=== PATIENT | female | born 1995 | race Caucasian/White ===

== ENCOUNTER 2023-06-11 10:36 | Outpatient (OUT) | payer OTHER, SELFPAY ==
--- NOTE | 2023-06-11 10:37 | US_ITS ---
[place] [address] Patient Name: TARA FLOREZ MRN: [id number] date: 1995 Sex: F Assigned Patient Location: US Current Patient Location: US Accession/Order Number: [id number] Exam Date: 06/11/2023 10:42 Report Date: 06/11/2023 11:38 At the request of: BRUCE CARD Procedure: US OB transvaginal EXAMINATION: US OB transvaginal HISTORY: Missed menses COMPARISON: No relevant comparison available. FINDINGS: Conde intrauterine gestation Gestational sac: 4.4 cm, 9 weeks 6 days CRL: 3.3 cm, 10 weeks 1 day Yolk sac: 3.8 mm Heart rate: 170 minute Cervix: Closed, 5.6 cm Area of perigestational heterogeneous echogenicity measuring 2.6 x 0.7 x 1.5 cm The right ovary measures 4.2 x 3.0 x 2.4 cm. Cystic area likely corpus luteal cyst The left ovary is not visualized Gestational age: 9 weeks 2 days Gestational age: 801/12/2024 Ultrasound age: 10 weeks 1 day Ultrasound CARTER: 01/06/2024 US/US OB transvaginal IMPRESSION: Viable conde intrauterine gestation measuring 10 weeks 1 day 2.6 cm subchorionic hematoma Electronically authenticated by: KURT STONE Date: 06/11/2023 11:38
== END 2023-06-11 10:37 | disposition home or self-care (01) ==
LOC: US 10:37
PROVIDERS: Visit Provider Obstetrics & Gynecology
DX: N92.6 Irregular menstruation, unspecified (principal); Z34.91 Encounter for supervision of normal pregnancy, unspecified, first trimester; Z3A.10 10 weeks gestation of pregnancy
CPT/HCPCS: 76817

== ENCOUNTER 2023-06-17 13:14 | Outpatient (OUT) | payer OTHER, SELFPAY ==
--- OUTSIDE RECORDS SUMMARY | 2023-06-17 13:21 | XMS_ITS | CCD ---
Author Name Unknown Address [address] [place] [address] Organization [facility] Care Team Providers Care Back Hoe Machine Operator Name Role Phone NO FAMILY PHYSICIAN, 837 Unavailable Unavail able FELIX GALVAN Unavailable Unavailable Miguel Holley Primary Care Provider Jackson Haas Primary Care Provider [phone] Miguel Holley Primary Care Provider Leydi Miguel M Primary Care Provider Leydi IVORY Miguel Primary Care Provider [phone] Leydi 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, Miguel M Primary Care Provider LEYDI MIGUEL M Referring Unavailable LEYDI, MIGUEL M Primary Care Unavailable Leydi 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, Miguel M Primary Care Provider Leydi 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, Miguel M Primary Care Provider Shona Lucio Primary Care Physician Yeison Holley 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, Miguel M Primary Care Provider Leydi 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, Miguel M Primary Care Provider LEYDI, MIGUEL M Primary Care Unavailable VICKIE NICHOLS Admitting Unavailable VICKIE NICHOLS Attending Unavailable LEYDI, MIGUEL M Primary Care Unavailable BRUCE CARD Referring Unavailable LEYDI, MIGUEL M Primary Care Unavailable BRUCE CARD Referring Unavailable LEYDI, MIGUEL M Primary Care Unavailable BRUCE CARD Referring Unavailable LEYDI, MIGUEL M Primary Care Unavailable BRUCE CARD Referring Unavailable LEYDI, MIGUEL M Primary Care Unavailable VICKIE NICHOLS Referring Unavailable KYAW, BRUCE ANGELICA Referring Unavailable MIGUEL HOLLEY Primary Care Unavailable BRUCE CARD Attending Unavailable Allergies Allergy Classification Reported Allergen(s) Allergy Type Date of Onset Reaction(s) Facility Aminoketones (4 sources) buPROPion; Translations: [Wellbutrin SR 100 MG Oral Tablet Extended Release 12 Hour] Drug Allergy 03-05-20 20 Wellbutrin SR [facility] Work Phone: Corticosteroids (6 sources) Triamcinolone Drug Allergy 10-14-19 14 Other (See Comments) [facility] Lisdexamfetamine (1 source) Lisdexamfetamine Drug Allergy 10-04-19 21 Vyvanse [facility] Work Phone: Naltrexone (4 sources) Naltrexone; Translations: [Naltrexone HCl 50 MG Oral Tablet] Drug Allergy 03-05-20 20 Naltrexone HCl [facility] Work Phone: (1 source) Triamcinolone; Translations: [TRIAMCINOLONE ACETONIDE] Drug Allergy 10-12-19 15 [facility] Repository (16 sources) Triamcinolone; Translations: [Kenalog] Drug Allergy 07-06-19 20 [facility] Work Phone: (6 sources) Triamcinolone Drug Allergy 10-14-19 14 Other (See Comments) [facility]- [place], [place] (17 sources) Poison spencer Allergy to substance 07-20-19 [facility] Work Phone: (3 sources) buPROPion; Translations: [Wellbutrin SR 100 MG Oral Tablet Extended Release 12 Hour] Drug Allergy 03-05-20 20 Wellbutrin SR [facility] Work Phone: (3 sources) Naltrexone; Translations: [Naltrexone HCl 50 MG Oral Tablet] Drug Allergy 03-05-20 20 Naltrexone HCl [facility] Work Phone: Medications Current Medications Medication Drug Class(es) Dates Sig (Normalized) Sig (Original) acetaminophen 325 mg / HYDROcodone bitartrate 5 mg oral tablet (2 sources) Opioid Agonist Start: 10-15-2020 End: 10-18-2020 HYDROcodone-acetami nophen (NORCO) 5-325 MG per tablet Indications: Generalized abdominal pain Take 1 tablet by mouth every 6 hours as needed for Pain for up to 3 days. Intended supply: 3 days. Take lowest dose possible to manage pain 12 tablet 0 10/15/2020 10/18/2020 Active Start: 10-15-2020 hydrocodone-ac etaminophen (NORCO) tablet 5-325 mg (STARTER PACK) 24 hr amphetamine aspartate 6.25 mg / amphetamine sulfate 6.25 mg / dextroamphetamine saccharate 6.25 mg / dextroamphetamine sulfate 6.25 mg extended release oral capsule (2 sources) Central Nervous System Stimulant Start: 01-02-2017 take 1 capsule by mouth once daily in the morning amphetamine-dextroamphetamine (ADDERALL XR) 25 MG extended release capsule Indications: ADD (attention deficit disorder) Take 1 capsule by mouth every morning . Earliest Fill Date: 01/02/17 30 capsule 0 01/02/2017 Active cephalexin 500 mg oral capsule (1 source) Cephalosporin Antibacterial Start: 10-15-2020 End: 10-22-2020 take 1 capsule by mouth three times daily cephALEXin (KEFLEX) 500 MG capsule Take 1 capsule by mouth 3 times daily for 7 days 21 capsule 0 10/15/2020 10/22/2020 Active ethinyl estradiol 0.035 mg / norgestimate 0.25 mg oral tablet (5 sources) Progestin, Estrogen take 1 tablet by mouth once daily norgestimate-ethinyl estradiol (SPRINTEC 28) 0.25-35 MG-MCG per tablet Take 1 tablet by mouth daily. 0 Active fexofenadine hydrochloride 180 mg oral tablet (7 sources) Histamine-1 Receptor Antagonist Start: 12-17-2016 take 1 tablet by mouth once daily fexofenadine (NIKOLAS) 180 MG tablet Indications: Poison spencer Take 1 tablet by mouth daily 30 tablet 1 12/17/2016 Active hydrocortisone 25 mg/ml topical lotion (7 sources) Corticosteroid Start: 12-17-2016 hydrocortisone (HYTONE) 2.5 % lotion Indications: Poison spencer Apply topically 2 times daily. 118 mL 1 12/17/2016 Active levonorgestrel 0.203420 mg/hr intrauterine system (17 sources) Progestin, Progestin-contai janessa Intrauterine Device Start: 07-20-2019 Mirena (52 MG) 20 MCG/24HR Intrauterine Intrauterine device 07/20/2019 Provider: lisdexamfetamine dimesylate 50 mg oral capsule (4 sources) Central Nervous System Stimulant Start: 09-10-2021 take 1 capsule by mouth once daily in the morning VYVANSE 50 MG capsule TAKE ONE CAPSULE BY MOUTH EVERY MORNING 0 09/10/2021 Active promethazine hydrochloride 25 mg oral tablet (2 sources) Phenothiazine Start: 10-15-2020 End: 10-22-2020 take 1 tablet by mouth every eight hours as needed for nausea promethazine (PHENERGAN) 25 MG tablet Take 1 tablet by mouth every 8 hours as needed for Nausea 21 tablet 0 10/15/2020 10/22/2020 Active Start: 10-15-2020 End: 10-15-2020 promethazine (PHENERGAN) inj ection 12.5 mg topiramate 50 mg oral tablet (4 sources) Start: 03-05-2020 Topamax 50 MG Oral Tablet 03/05/2020 Provider: Miguel Holley CNP Completed/Discontinued Medications Medication Drug Class(es) Dates Sig (Normalized) Sig (Original) 12 hr buPROPion hydrochloride 100 mg extended release oral tablet (20 sources) Aminoketone Start: 07-06-2019 End: 03-05-2020 take 1 tablet by mouth every twelve hours Wellbutrin SR 100 MG Oral Tablet Extended Release 12 Hour 11/06/2019 - 03/05/2020 Provider: Poly Franco CNP 12 hr buPROPion hydrochloride 90 mg / naltrexone hydrochloride 8 mg extended release oral tablet (11 sources) Opioid Antagonist, Aminoketone Start: 10-12-2019 End: 10-12-2019 take 8-90 mg by mouth every twelve hours Contrave 8-90 MG Oral Tablet Extended Release 12 Hour 10/12/2019 - 10/12/2019 Provider: Poly Franco CNP iopamidol (ISOVUE-370) 76 % injection 75 mL (3 sources) Start: 10-15-2020 End: 10-15-2020 iopamidol (ISOVUE-370) 76 % injection 75 mL Start: 04-08-2020 End: 04-08-2020 iopamidol (ISOVUE-370) 76 % injection 75 mL Start: 04-08-2020 End: 04-08-2020 iopamidol (ISOVUE-370) 76 % injection 75 mL methylPREDNISolone 4 mg oral tablet (9 sources) Corticosteroid Start: 12-05-2019 End: 03-05-2020 Medrol 4 MG Oral Tablet Therapy Pack 12/05/2019 - 03/05/2020 Provider: Poly Franco CNP 1 ml morphine sulfate 4 mg/m l cartridge (2 sources) Opioid Agonist Start: 10-15-2020 End: 10-15-2020 morphine injection 4 mg Start: 10-14-2020 End: 10-15-2020 morphine injection 4 mg naltrexone hydrochloride 50 mg oral tablet (20 sources) Opioid Antagonist Start: 07-06-2019 End: 03-05-2020 Naltrexone HCl 50 MG Oral Tablet 11/06/2019 - 03/05/2020 Provider: Poly Franco CNP 2 ml ondansetron 2 mg/ml injection (1 source) Serotonin-3 Receptor Antagonist Start: 10-14-2020 End: 10-15-2020 ondansetron (ZOFRAN) injection 4 mg phentermine hydrochloride 37.5 mg oral tablet (20 sources) Sympathomimetic Amine Anorectic Start: 07-20-2019 End: 10-12-2019 Adipex-P 37.5 MG Oral Tablet 08/17/2019 - 09/14/2019 Provider: Miguel Holley CNP predniSONE 20 mg oral tablet (20 sources) Start: 09-05-2019 End: 10-12-2019 predniSONE 20 MG Oral Tablet 09/11/2019 - 10/12/2019 Provider: Poly Franco CNP 50 ml sodium chloride 9 mg/ml injection (1 source) Start: 10-14-2020 End: 10-15-2020 0.9 % sodium chloride bolus triamcinolone acetonide 1 mg/ml topical cream (14 sources) Corticosteroid Start: 09-11-2019 End: 10-12-2019 Triamcinolone Acetonide 0.1% External Cream 09/11/2019 - 10/12/2019 Provider: Poly Franco CNP Problems Active Problems Problem Classification Problem Date Documented Da te Episodic/Chronic Abdominal pain (2 sources) Generalized abdominal pain; Translations: [Generalized abdominal pain] Onset: 03-24-2023 Episodic Anxiety disorders (20 sources) Generalized anxiety disorder; Translations: [Anxiety disorder] Onset: 07-06-2019 Chronic Attention-deficit conduct and disruptive behavior disorders (8 sources) Attention deficit hyperactivity disorder, predominantly inattentive type; Translations: [Other specified behavioral and emotional disorders with onset usually occurring in childhood and adolescence] Onset: 03-05-2014 03-05-2014 Chronic Attention-deficit, conduct, and disruptive behavior disorders (1 source) Attention-deficit hyperactivity disorder, unspecified type Chronic Immunizations and screening for infectious disease (10 sources) Exposure to communicable disease; Translations: [HIV screening] Onset: 03-19-2020 Episodic Menstrual disorders (2 sources) Irregular menstruation, unspecified; Translations: [Irregular menstruation, unspecified] Onset: 03-24-2023 Chronic Miscellaneous mental health disorders (15 sources) Primary insomnia; Translations: [Primary Insomnia Idiopathic] Onset: 07-06-2019 Chronic Mood disorders (20 sources) Depressive disorder; Translations: [Mild mood disorder] Onset: 03-05-2014 03-05-2014 Chronic Nausea and vomiting (1 source) Nausea, vomiting and diarrhea; Translations: [Nausea with vomiting, unspecified] Episodic Other connective tissue disease (1 source) Pain in right arm Onset: 12-04-2021 Episodic Other connective tissue disease (1 source) Pain in left arm Onset: 12-04-2021 Episodic Other gastrointestinal disorders (1 source) Abdominal distension (gaseous); Translations: [Abdominal distension (gaseous)] Onset: 03-24-2023 Episodic Other liver diseases (1 source) Steatosis of liver; Translations: [Fatty liver] Chronic Other nervous system disorders (1 source) Other disturbances of skin sensation Onset: 12-04-2021 Episodic Other nutritional; endocrine; and metabolic disorders (20 sources) Simple obesity ; Translations: [Obesity, unspecified] Onset: 07-06-2019 Chronic Other nutritional; endocrine; and metabolic disorders (20 sources) Finding of body mass index; Translations: [Body mass index (observable entity)] Onset: 10-12-2019 Chronic Other nutritional; endocrine; and metabolic disorders (4 sources) Morbid obesity; Translations: [Morbid obesity] Onset: 09-23-2020 Chronic Other screening for suspected conditions (not mental disorders or infectious disease) (19 sources) Encounter for screening for diabetes mellitus; Translations: [Diabetes Risk Test Score] Onset: 07-06-2019 Episodic Unclassified (1 source) Patient encounter status; Translations: [Encounter for intrauterine device placement] Viral infection (8 sources) Herpes simplex of female genitalia; Translations: [Herpesviral infection of other urogenital tract] Onset: 06-30-2011 11-20-2014 Chronic Past or Other Problems Problem Classification Problem Date Documented Date Episodic/Chronic Allergic reactions (20 sources) Contact dermatitis due to plants; Translations: [Contact dermatitis due to poison spencer] Onset: 09-05-2019 Episodic Complication of device; implant or graft (2 sources) Displacement of intrauterine contraceptive device, initial encounter; Translations: [Displacement of intrauterine contraceptive device, initial encounter] Onset: 01-20-2023 Episodic Other lower respiratory disease (6 sources) Cough; Translations: [Cough] Onset: 03-19-2020 Episodic Other skin disorders (9 sources) Eruption; Translations: [Rash and other nonspecific skin eruption] Onset: 12-05-2019 Episodic Unclassified (20 sources) Finding of body mass index; Translations: [Body Mass Index] Onset: 07-06-2019 Viral infection (9 sources) Herpes labialis; Translations: [Other specified viral infection] Onset: 11-20-2014 11-20-2014 Episodic Results Test Name Value Interpretation Reference Range Facility HCG, [place] 05-12-2023 HCG, Quant 9701.0 mIU/mL High <5 [facility] Comment on above: Result Comment: Non-preg premeno <=5 Postmeno <=8 Male <=3 If HCG results do not concur with clinical observations, additional testing to confirm results is recommended. Performed By: #### B HCG #### [facility] [address] [place] [address] [place] [address] Picker Tender: Mateusz Brand MD HCG, [place] 05-07-2023 HCG, Quant 3514.0 mIU/mL High <5 [facility] Comment on above: Result Comment: Non-preg premeno <=5 Postmeno <=8 Male <=3 If HCG results do not concur with clinical observations, additional testing to confirm results is recommended. Performed By: #### B HCG #### [facility] [address] [place] [address] [place] [address] Picker Tender: Mateusz Brand MD HCG, [place] 05-05-2023 HCG, Quant 2224.0 mIU/mL High <5 [facility] Comment on above: Result Comment: Non-preg premeno <=5 Postmeno <=8 Male <=3 If HCG results do not concur with clinical observations, additional testing to confirm results is recommended. Performed By: #### B HCG #### [facility] [address] [place] [address] Picker Tender: Mateusz Brand MD US PELVIS COMPLETE NON-OB TR ANSABDOMINAL AND TRANSVAGINALon 03-25-2023 US PELVIS COMPLETE NON-OB TRANSABDOMINAL AND TRANSVAGINAL EXAMINATION: TRANSABDOMINAL AND TRANSVAGINAL PELVIC ULTRASOUND 03/24/2023 TECHNIQUE: Transabdominal pelvic ultrasound was performed. COMPARISON: CT abdomen pelvis from 10/15/2020 HISTORY: ORDERING SYSTEM PROVIDED HISTORY: Abdominal pain, unspecified abdominal location 27-year-old female with abdominal pain and bloating FINDINGS: Measurements: LMP is 03/07/2023. Uterus: 7.1 x 4.7 x 4.0 cm. Endometrial stripe: 9 mm. Right Ovary:4.4 x 4.5 x 3.7 cm. Left Ovary: 3.1 x 3.5 x 3.0 cm. Ultrasound Findings: Uterus: Uterus demonstrates normal myometrial echotexture. Anteverted uterus. No uterine mass or fibroid. Endometrial stripe: Endometrial stripe is within normal limits. Right Ovary: 1.8 x 2.1 x 2.2 cm simple right ovarian cyst. Left Ovary: Dominant left ovarian follicle measures 1.4 x 1.2 x 1.0 cm. Color flow projects over the bilateral ovarian parenchyma. Free Fluid: No evidence of free fluid. IMPRESSION: 1. Endometrial stripe thickness measures 9 mm, within normal limits. 2. Dominant left ovarian follicle measuring 1.4 cm. 2.2 cm simple right ovarian cyst. 3. Anteverted uterus. RECOMMENDATIONS: Multiple ovarian cysts. Most significant: 2.2 cm right ovarian follicle, normal finding. No follow-up imaging is recommended. Reference: Radiology 2019 Nov;293(2):359-371 Interpreted by: Yousif Lamb MD Signed by: Yousif Lamb MD 03/25/23 Final result Normal [facility] CBC with Diffon 03-24-2023 Abs. Basophil 0.06 k/uL Normal 0.00-0.20 [facility] Comment on above: Performed By: #### [facility] #### [address] [place], [place] [address] Picker Tender: Mateusz Brand MD Abs.Imm.Granulocyte 0.03 k/uL Normal 0.00-0.30 [facility] Comment on above: Performed By: #### [facility] #### [address] [place], [place] [address] Picker Tender: Mateusz Brand MD Abs.Neutrophil (Seg) 7.07 k/uL Normal 1.50-8.10 [facility] Comment on above: Performed By: #### [facility] #### [address] [place], [place] [address] Picker Tender: Mateusz Brand MD Basophils/100 WBC (Bld) 1 % Normal 0-2 [facility] Comment on above: Performed By: #### C [facility] #### [address] [place], [place] [address] Picker Tender: Mateusz Brand MD Eosinophils (Bld) [#/Vol] 0.13 10*3/uL Normal 0.00-0.44 [facility] Comment on above: Performed By: #### C TJ MarisaG #### [address] [place], [facility] Picker Tender: Mateusz Brand MD Eosinophils/100 WBC (Bld) 1 % Normal 1-4 [facility] Comment on above: Performed By: #### [facility] #### [address] [place], [facility] Picker Tender: Mateusz Brand MD Erythrocyte distribution width (RBC) [Ratio] 11.9 % Normal 11.8-14.4 [facility] Comment on above: Performed By: #### C TJ, CG #### [facility] [address] [place] [address] Picker Tender: Mateusz Brand MD Hematocrit (Bld) [Volume fraction] 37.8 % Normal 36.3-47.1 [facility] Comment on above: Performed By: #### C TJ, CG #### [address] [place] [address] Picker Tender: Mateusz Brand MD Hemoglobin (Bld) [Mass/Vol] 13.3 g/dL Normal 11.9-15.1 [facility] Comment on above: Performed By: #### C TJ, BHCG #### [address] [place] [id number] Picker Tender: Mateusz Brand MD Immature granulocytes/100 WBC (Bld) 0 % Normal 0 [facility] Comment on above: Performed By: #### [facility] #### [address] [place] [id number] Picker Tender: Mateusz Brand MD Lymphocytes (Bld) [#/Vol] 3.03 10*3/uL Normal 1.10-3.70 [facility] Comment on above: Performed By: #### C TJ CG #### [address] [place], [facility] Picker Tender: Mateusz Brand MD Lymphocytes/100 WBC (Bld) 28 % Normal 24-43 [facility] Comment on above: Performed By: #### C JT, CG #### [address] [place] [address] Picker Tender: Mateusz Brand MD MCH (RBC) [Entitic mass] 28.6 pg Normal 25.2-33.5 [facility] Comment on above: Performed By: #### C TJ, CG #### [address] [place], [facility] Picker Tender: Mateusz Brand MD MCHC (RBC) [Mass/Vol] 35.2 g/dL High 28.4-34.[address] [facility] Comment on above: Performed By: #### C TJ, BHCG #### [address] [place], [place] [address] Picker Tender: Mateusz Brand MD MCV (RBC) [Entitic vol] 81.3 fL Low 82.6-102.9 [facility] Comment on above: Performed By: #### C TJ CG #### [address] [place] [id number] Picker Tender: Mateusz Brand MD Monocytes (Bld) [#/Vol] 0.60 10*3/uL Normal 0.10-1.20 [facility] Comment on above: Performed By: #### [facility] #### [address] [place], [place] [address] Picker Tender: Mateusz Brand MD Monocytes/100 WBC (Bld) 6 % Normal 3-12 [facility] Comment on above: Performed By: #### C TJ CG #### [address] [place], [place] [address] Picker Tender: Mateusz Brand MD Neutrophil (Seg) 64 % Normal 36-65 [facility] Comment on above: Performed By: #### C TJ CG #### [address] [place] [id number] Picker Tender: Mateusz Brand MD NRBC Automated 0.0 per 100 WBC Normal 0.0 [facility] Comment on above: Performed By: #### C TJ BHCG #### [address] [place] [id number] Picker Tender: Mateusz Brand MD Platelet mean volume (Bld) [Entitic vol] 10.6 fL Normal 8.1-13.5 [facility] Comment on above: Performed By: #### C DP, BHCG #### [facility] [address] [place], [place] [id number] Picker Tender: Mateusz Brand MD Platelets (Bld) [#/Vol] 231 10*3/uL Normal 138-453 [facility] Comment on above: Performed By: #### C TJ, BHCG #### [facility] [address] [place] [address] Picker Tender: Mateusz Brand MD RBC (Bld) [#/Vol] 4.65 10*6/uL Normal 3.95-5.11 [facility] Comment on above: Performed By: #### C TJ, BHCG #### [facility] [address] [place] [address] Dr. [place], [place] [id number] Picker Tender: Mateusz Brand MD WBC (Bld) [#/Vol] 10.9 10*3/uL Normal 3.5-11.3 [facility] Comment on above: Performed By: #### C DP, BHCG #### [address] [place], [place] [id number] Picker Tender: Mateusz Brand MD HCG, [place] 03-24-2023 HCG, Quant <1.0 Normal <5 [facility] Comment on above: Result Comment: Non-preg premeno <=5 Postmeno <=8 Male <=3 If HCG results do not concur with clinical observations, additional testing to confirm results is recommended. Performed By: #### C DP, BHCG #### [facility] [address] [place], [place] [id number] Picker Tender: Mateusz Brand MD HCG, ,Urineon 01-20 Beta HCG ( test) Ql (U) Negative Normal NEG [facility] Comment on above: Result Comment: Spec imens with hCG levels near the threshold of the test (25 mIU/mL) may give a negative or indeterminate result. In such cases, another test should be performed with a new specimen in 48-72 hours. If early is suspected clinically in this setting, correlation with quantitative serum b-hCG level is suggested. [facility] has confirmed the use of plasma for this test. This has not been cleared or approved by the U.S. Food and Drug Administration. The FDA has determined that such clearance is not necessary. Performed By: #### U HCG #### [facility] [address] [place] [address] [place] [address] Picker Tender: Mateusz Brand MD OPERATIVE REPORTon 3 OPERATIVE REPORT [address] [id number] OPERATIVE REPORT PATIENT NAME: ESTEFANIA FLOREZ : 1995 MED REC NO: [id number] ROOM: ACCOUNT NO: [id number] ADMIT DATE: 01/20/2023 PROVIDER: Vickie Nichols MD DATE OF PROCEDURE: 01/20/2023 PREOPERATIVE DIAGNOSIS: IUD in place, strings lost. POSTOPERATIVE DIAGNOSIS: IUD in place, strings lost. PROCEDURE PERFORMED: Hysteroscopic removal of IUD. ANESTHESIA: General. ESTIMATED BLOOD LOSS: None. COMPLICATIONS: None. FINDINGS: That of IUD intact with strings curled around the base of the IUD. Otherwise, normal-appearing endometrial cavity and endocervical canal. DESCRIPTION OF PROCEDURE: The patient was taken to the operating room. General anesthesia was administered and the patient was in the dorsal lithotomy position where she did undergo perineal prepping, vaginal prepping, drainage of the bladder, and appropriate draping. It was necessary to dilate the cervix in a graduated fashion to #14 Syriac with Adeel dilators. Then, the hysteroscope was inserted into the endocervical canal. The IUD was well visualized. Graspers were used to grasp the IUD and remove it intact. Viewing of, as mentioned, the endocervical canal and the endometrial canal was otherwise negative. The patient was then taken to the recovery room after removal of the tenaculum and taken in good condition. VICKIE NICHOLS MD [id number] Doc#: [id number] CC: Normal [facility] Cytologyon 01-01-2023 Cytology (NOTE) Path Number: [id number] DIAGNOSIS Imaged ThinPrep Pap - Cervical (1 monolayer slide): Specimen Adequacy: Satisfactory for evaluation. -Endocervical/transformat ion zone component is absent. Descriptive Diagnosis: Negative for intraepithelial lesion or malignancy. Fungal organisms morphologically consistent with Sheree species. Cytotech Screener: EY Electronically Signed Out Arsh BELLO(ASCP) /01/07/2023 Source of Specimen: A: Imaged ThinPrep Pap - Cervical (1 monolayer slide) HPV Reflex?.................. ....HPV if Abnormal Clinical History Intrauterine device Z01.419 Routine physician gynecologist exam without abnormal findings High risk HPV DNA testing is requested if the diagnosis is abnormal Processing Lab: [address] [id number] Interpretation performed at [address] [address] This Pap Test has been evaluated with the assistance of the ThinPrep Pap Test Imaging System. The Pap smear is a screening test primarily for squamous epithelial lesions, which is subject to both false negative and false positive results. Your patient should be reminded to consult you immediately if she experiences any suspicious signs or symptoms, regardless of her Pap smear result. GYNECOLOGIC CYTOLOGY REPORT Patient Name: ESTEFANIA FL[facility]Z [facility] Rec: [id number] [facility] [employer] [facility] ANATOMIC PATHOLOGY [address] [place] [address]. [place], [place] [id number] Normal [facility] C-Reactive Proteinon 022 CRP [Mass/Vol] mg/L 0 - 5 mg/L [facility] CBC with Auto Differentialon 12-16-2021 Absolute Eos # 0.09 [facility] Absolute Immature Granulocyte 0.04 [facility] Absolute Lymph # 2.98 [facility] Absolute [place] # 0.51 [facility] Basophils (Bld) [#/Vol] 0.04 10*3/uL [facility] Basophils/100 WBC (Bld) 0 % 0 - 2 % [facility] Eosinophils/100 WBC (Bld) 1 % 1 - 4 % [facility] Hematocrit (Bld) [Volume fraction] 39.6 % 36.3 - 47.1 % [facility] Hemoglobin (Bld) [Mass/Vol] 13.1 g/dL 11.9 - 15.1 g/dL [facility] Immature granulocytes/100 WBC (Bld) 0 % 0 [facility] Lymphocytes/100 WBC (Bld) 33 % 24 - 43 % [facility] MCH (RBC) [Entitic mass] 28.2 pg 25.2 - 33.5 pg [facility] MCHC (RBC) [Mass/Vol] 33.1 g/dL 28.4 - 34.8 g/dL [facility] MCV (RBC) [Entitic vol] 85.3 fL 82.6 - 102.9 fL [facility] Monocytes/100 WBC (Bld) 6 % 3 - 12 % [facility] NRBC Automated 0.0 0.0 per 100 WBC [facility] Platelet distribution width (Bld) [Ratio] 12.0 % 11.8 - 14.4 % [facility] Platelet mean volume (Bld) [Entitic vol] 11.1 fL 8.1 - 13.5 fL [facility] Platelets (Bld) [#/Vol] 214 10*3/uL [facility] RBC (Bld) [#/Vol] 4.64 10*6/uL 3.95 - 5.1 1 m/uL [facility] Segmented neutrophils/100 WBC (Bld) 60 % 36 - 65 % [facility] Segs Absolute 5.49 [facility] WBC (Bld) [#/Vol] 9.2 10*3/uL [facility] Rheumatoid Factoron 12-17-19 22 Rheumatoid Factor <10 NINF [facility] DoublePositive [facility] [employer] Sedimentation Rateon 022 Sed Rate 5 [facility] [employer] [facility] [employer] Uric Acidon 12-16-2021 Urate [Mass/Vol] 4.2 mg/dL 2.4 - 5.7 mg/dL [facility] [employer] [facility] [employer] Basic Metabolic Panel w/ Ref yossi to MGOrdered By: Donny Hatfield on 10-15-2020 Anion gap [Moles/Vol] 13 mmol/L 9 - 17 mmol/L [employer] Phone: Calcium [Mass/Vol] 9.6 mg/dL 8.6 - 10. 4 mg/dL [employer] Phone: Chloride [Moles/Vol] 105 mmol/L 98 - 10 7 mmol/L [employer] Phone: CO2 [Moles/Vol] 22 mmol/L 20 - 31 mmol/L [employer] Phone: Creatinine [Mass/Vol] 0.62 mg/dL 0.50 - 0.90 mg/dL [employer] Phone: GFR >60 >60 mL/min [employer] Phone: GFR Non- >60 >60 mL/min [employer] Phone: Glucose [Mass/Vol] 110 mg/dL High 70 - 99 mg/dL [employer] Phone: Interpretation and review of laboratory results Abnormal [employer] Phone: Potassium [Moles/Vol] 3.5 mmol/L Low 3.7 - 5.3 mmol/L [employer] Phone: Sodium [Moles/Vol] 140 mmol/L 135 - 144 mmol/L [employer] Phone: Urea nitrogen (BldV) [Mass/Vol] 12 mg/dL 6 - 20 mg/dL [employer] Phone: Urea nitrogen/Creatinine (Bld) [Mass ratio] 19 [employer] Phone: [employer] Phone: CBC Auto DifferentialOrdered By: Donny Hatfield on 10-15-2020 Absolute Eos # 0.19 [employer] Phone: Absolute Immature Granulocyte 0.06 [employer] Phone: Absolute Lymph # 2.50 [employer] Phone: Absolute [place] # 0.75 [employer] Phone: Basophils (Bld) [#/Vol] 0.04 10*3/uL [employer] Phone: Basophils/100 WBC (Bld) 0 % 0 - 2 % [employer] Phone: Differential Type NOT REPORTED [employer] Phone: Eosinophils/100 WBC (Bld) 1 % 1 - 4 % [employer] Phone: Hematocrit (Bld) [Volume fraction] 42.1 % 36.3 - 47.1 % [employer] Phone: Hemoglobin.gastrointes tinal spec 1 Ql (Stl) 14.0 g/dL 11.9 - 15.1 g/dL [employer] Phone: Immature granulocytes/100 WBC (Bld) 0 % 0 [employer] Phone: Interpretation and review of laboratory results Abnormal [employer] Phone: Lymphocytes/100 WBC (Bld) 14 % Low 24 - 43 % [employer] Phone: MCH (RBC) [Entitic mass] 28.1 pg 25.2 - 33.5 pg [employer] Phone: MCHC (RBC) [Mass/Vol] 33.3 g/dL 28.4 - 34.8 g/dL [employer] Phone: MCV (RBC) [Entitic vol] 84.4 fL 82.6 - 102.9 fL [employer] Phone: Monocytes/100 WBC (Bld) 4 % 3 - 12 % [employer] Phone: NRBC Automated 0.0 0.0 per 100 WBC [employer] Phone: Platelet distribution width (Bld) [Ratio] 11.9 % 11.8 - 14.4 % [employer] Phone: Platelet Estimate NOT REPORTED [employer] Phone: Platelet mean volume (Bld) [Entitic vol] 10.7 fL 8.1 - 13.5 fL [employer] Phone: Platelets (Bld) [#/Vol] 220 10*3/uL [employer] Phone: RBC (Bld) [#/Vol] 4.99 10*6/uL 3.95 - 5.1 1 m/uL [employer] Phone: RBC (Bld) [#/Vol] NOT REPORTED [employer] Phone: Segmented neutrophils/100 WBC (Bld) 81 % High 36 - 65 % [employer] Phone: Segs Absolute 14.20 High [employer] Phone: [phone] WBC (Bld) [#/Vol] 17.7 10*3/uL High [employer] Phone: [phone] WBC (Bld) [#/Vol] NOT REPORTED [employer] Phone: [employer] Phone: CT ABDOMEN PELVIS W IV CONTR AST Additional Contrast? NoneOrdered By: Donny Hatfield on 10-15-2020 1. Marked hepatic steatosis. 2. Hepatomegaly. 3. Mild colonic diverticulosis without evidence of diverticulitis. [employer] Phone: EXAMINATION: CT OF T HE ABDOMEN AND PELVIS WITH CONTRAST 10/15/2020 1:21 am TECHNIQUE: CT of the abdomen and pelvis was performed with the administration of intravenous contrast. Multiplanar reformatted images are provided for review. Dose modulation, iterative reconstruction, and/or weight based adjustment of the mA/kV was utilized to reduce the radiation dose to as low as reasonably achievable. COMPARISON: None. HISTORY: ORDERING SYSTEM PROVIDED HISTORY: abd pain TECHNOLOGIST PROVIDED HISTORY: abd pain Decision Support Exception - unselect if not a suspected or confirmed emergency medical condition->Emergency Medical Condition (MA) FINDINGS: Abdomen/Pelvis: Lower chest: The lung bases are well aerated. Pleural surfaces are unremarkable and no evidence of pleural effusion is identified. Organs: Marked diffuse fatty infiltration of the liver is present. The liver is enlarged measuring up to 21.6 cm in craniocaudad extent. The liver, gallbladder, spleen, pancreas, adrenal glands, kidneys, are otherwise unremarkable in appearance. GI/Bowel: The stomach is unremarkable without wall thickening or distention. Small scattered diverticula are seen within the colon without evidence of adjacent inflammatory change within the mesenteric fat identified. Bowel loops are unremarkable in appearance without evidence of obstruction, distension or mucosal thickening. The appendix is normal. Pelvis: The urinary bladder is mildly distended and grossly unremarkable in appearance. No evidence of pelvic free fluid is seen. Uterus is anteverted in position and is unremarkable in appearance. Intrauterine contraceptive device appears well positioned within the endometrial canal. Peritoneum/Retroperitoneu m: No evidence of retroperitoneal or intraperitoneal lymphadenopathy is identified. No evidence of intraperitoneal free fluid is seen. Bones/Soft Tissues: The bones, skeletal muscle bundles, fascial planes and subcutaneous soft tissues are unremarkable in appearance. [employer] Phone: Jean Marie, pn Incoming Radiant Results From [employer] - 10/15/2020 1:48 AM EDT EXAMINATION: CT OF THE ABDOMEN AND PELVIS WITH CONTRAST 10/15/2020 1:21 am TECHNIQUE: CT of the abdomen and pelvis was performed with the administration of intravenous contrast. Multiplanar reformatted images are provided for review. Dose modulation, iterative reconstruction, and/or weight based adjustment of the mA/kV was utilized to reduce the radiation dose to as low as reasonably achievable. COMPARISON: None. HISTORY: ORDERING SYSTEM PROVIDED HISTORY: [facility] pain TECHNOLOGIST PROVIDED HISTORY: [facility] pain Decision Support Exception - unselect if not a suspected or confirmed emergency medical condition->Emergency Medical Condition (MA) FINDINGS: Abdomen/Pelvis: Lower chest: The lung bases are well aerated. Pleural surfaces are unremarkable and no evidence of pleural effusion is identified. Organs: Marked diffuse fatty infiltration of the liver is present. The liver is enlarged measuring up to 21.6 cm in craniocaudad extent. The liver, gallbladder, spleen, pancreas, adrenal glands, kidneys, are otherwise unremarkable in appearance. GI/Bowel: The stomach is unremarkable without wall thickening or distention. Small scattered diverticula are seen within the colon without evidence of adjacent inflammatory change within the mesenteric fat identified. Bowel loops are unremarkable in appearance without evidence of obstruction, distension or mucosal thickening. The appendix is normal. Pelvis: The urinary bladder is mildly distended and grossly unremarkable in appearance. No evidence of pelvic free fluid is seen. Uterus is anteverted in position and is unremarkable in appearance. Intrauterine contraceptive device appears well positioned within the endometrial canal. Peritoneum/Retroperitoneu m: No evidence of retroperitoneal or intraperitoneal lymphadenopathy is identified. No evidence of intraperitoneal free fluid is seen. Bones/Soft Tissues: The bones, skeletal muscle bundles, fascial planes and subcutaneous soft tissues are unremarkable in appearance. IMPRESSION: 1. Marked hepatic steatosis. 2. Hepatomegaly. 3. Mild colonic diverticulosis without evidence of diverticulitis. [employer] Phone: [employer] Phone: HCG Qualitative, SerumOrdere d By: Donny Hatfield on 10-15-2020 hCG Qual Negative NEGATIVE [employer] Phone: Comment on above: Specimens with hCG l evels near the threshold of the test (25 mIU/mL) may give a negative or indeterminate result. In such cases, another test should be performed with a new specimen in 48-72 hours. If early is suspected clinically in this setting, correlation with quantitative serum b-hCG level is suggested. [employer] has confirmed the use of plasma for this test. This has not been cleared or approved by the U.S. Food and Drug Administration. The FDA has determined that such clearance is not necessary. [employer] Phone: Hepatic Function PanelOrdere d By: Donny Hatfield on 10-15-2020 Albumin [Mass/Vol] 4.6 g/dL 3.5 - 5.2 g/dL [employer] Phone: Albumin/Globulin [Mass ratio] 1.6 {ratio} [employer] Phone: ALP (Bld) [Catalytic activity/Vol] 59 U/L 35 - 104 U/L [employer] Phone: ALT [Catalytic activity/Vol] 38 U/L High 5 - 33 U/L [employer] Phone: AST [Catalytic activity/Vol] 24 U/L <32 [employer] Phone: Bilirubin [Mass/Vol] 0.48 mg/dL 0.3 - 1 .2 mg/dL [employer] Phone: Bilirubin, Indirect CANNOT BE CALCULATED 0.00 - 1.00 mg/dL [employer] Phone: Bilirubin.indirect [Mass/Vol] mg/dL <0.31 mg/dL [employer] Phone: Free PSA/Total PSA [Mass fraction] 7.4 g/dL 6.4 - 8.3 g/dL [employer] Phone: Globulin NOT REPORTED 1.5 - 3.8 g/dL [employer] Phone: Interpretation and review of laboratory results Abnormal [employer] Phone: Laboratory - Chemistry and C hemistry - challengeOrdered By: Donny Hatfield on 10-15-2020 GFR/1.73 sq M.predicted MDRD (S/P/Bld) [Vol rate/Area] [employer] Phone: Comment on above: Average GFR for 20-2 9 years old: 116 mL/min/1.73sq m Chronic Kidney Disease: <60 mL/min/1.73sq m Kidney failure: <15 mL/min/1.73sq m eGFR calculated using average adult body mass. Additional eGFR calculator available at: http://www.[employer].sg/multiple_crcl_2012.htm Stage 1: Some kidney damage normal GFR Stage 2: Mild kidney damage GFR 60-89 Stage 3: Moderate kidney damage GFR 30-59 Stage 4: Severe kidney damage GFR 15-29 Stage 5: Severe kidney damage GFR <15 ESRD - chronic treatment by dialysis or transplant Lactic Acid, PlasmaOrdered B y: Donny Hatfield on 10-15-2020 Lactate [Moles/Vol] 1.1 mmol/L 0.5 - 2. 2 mmol/L [employer] Phone: Lactic Acid, Whole Blood NOT REPORTED 0.7 - 2.1 mmol/L [employer] Phone: [employer] Phone: LipaseOrdered By: Cuco on 10-15-2020 Lipase [Catalytic activity/Vol] 27 U/L 13 - 60 U/L [employer] Phone: MagnesiumOrdered By: Donny Hatfield on 10-15-2020 Magnesium [Mass/Vol] 1.8 mg/dL 1.6 - 2 .6 mg/dL [employer] Phone: [employer] Phone: Microscopic UrinalysisOrdere d By: Donny Hatfield on 10-15-2020 - [employer] Phone: Amorphous, UA NOT REPORTED None [employer] Phone: Bacteria, UA 1+ Abnormal None [employer] Phone: Casts UA NOT REPORTED /LPF [facility] Work Phone: Crystals, UA NOT REPORTED None /HPF [facility] Work Phone: Epithelial Cells UA 2 TO 5 [facility] Work Phone: Interpretation and review of laboratory results Abnormal [employer] Work Phone: Mucus, UA 1+ Abnormal None [employer] Work Phone: Other Observations UA NOT REPORTED NOT REQ. M [facility] [employer] Work Phone: RBC, UA 2 TO 5 [facility] Work Phone: Renal Epithelial, UA NOT REPORTED 0 /HPF [facility] [employer] Work Phone: Trichomonas, UA NOT REPORTED None [employer] Phone: WBC, UA 0 TO 2 [facility] Work Phone: Yeast, UA NOT REPORTED None [employer] Work Phone: [employer] Work Phone: No Panel InformationOrdered By: Donny Hatfield on 10-15-2020 [employer] Phone: Urinalysis Reflex to Culture Ordered By: Donny Hatfield on 10-15-2020 Bilirubin Urine Negative NEGATIVE [employer] Phone: Color, UA YELLOW YELLOW [employer] Work Phone: Glucose, Ur Negative NEGATIVE [employer] Phone: Interpretation and review of laboratory results Abnormal [employer] Phone: Ketones Ql (U) Negative NEGATIVE [employer] Work Phone: Leukocyte esterase Test strip Ql (U) Negative NEGATIVE [employer] Phone: Nitrite, Urine Negative NEGATIVE [employer] Work Phone: pH, UA 5.0 [facility] Phone: Protein, UA Negative NEGATIVE [facility] Phone: Specific [place], UA 1.010 [facility] [employer] Work Phone: Turbidity UA CLEAR CLEAR [facility] Work Phone: Urinalysis Comments NOT REPORTED [facility] [employer] Work Phone: Urine Hgb 2+ Abnormal NEGATIVE [facility] Phone: Urobilinogen, Urine Normal Normal [facility] [employer] Phone: [facility] Phone: Comp Metabolic Profon 2020 (cont.) Normal [facility] Comment on above: Result Comment: Aver age GFR for 20-29 years old: 116 mL/min/1.73sq m Chronic Kidney Disease: <60 mL/min/1.73sq m Kidney failure: <15 mL/min/1.73sq m eGFR calculated using average adult body mass. Additional eGFR calculator available at: http://www.[employer]orific.Podimetrics/multiple_crcl_2011.htm Performed By: #### L IPRF, CDP, CP, TSHX #### [employer] [address] [place] [phone] Picker Tender: Chato Aguirre MD Albumin [Mass/Vol] 4.3 g/dL Normal 3.5-5.2 [facility] Comment on above: Performed By: #### L IPRF, CDP, CP, TSHX #### [employer] [address] [place] [address] Picker Tender: Chato Aguirre MD Albumin/Glob Ratio 1.3 Normal 1.0-2.5 [facility] Comment on above: Performed By: #### L IPRF, CDP, CP, TSHX #### [employer] [address] [place] [address] Picker Tender: Chato Aguirre MD Alkaline Phos 49 U/L Normal 35-104 [facility] Comment on above: Performed By: #### L IPRF, CDP, CP, TSHX #### [facility] [employer] [address] [place] [address] Picker Tender: Chato Aguirre MD ALT [Catalytic activity/Vol] 36 U/L High 5-33 [facility] Comment on above: Performed By: #### L IPRF, CDP, CP, TSHX #### [facility] [employer] [address] [place] [phone] Picker Tender: Chato Aguirre MD Anion gap [Moles/Vol] 11 mmol/L Normal 9-17 [facility] Comment on above: Performed By: #### L IPRF, CDP, CP, TSHX #### [facility] [employer] [address] [place] [address] Picker Tender: Chato Aguirre MD AST [Catalytic activity/Vol] 27 U/L Normal <32 [facility] Comment on above: Performed By: #### L IPRF, CDP, CP, TSHX #### [facility] [employer] [address] [place] [address] Picker Tender: Chato Aguirre MD Bilirubin [Mass/Vol] 0.34 mg/dL Normal 0.3-1.2 [facility] Comment on above: Performed By: #### L IPRF, CDP, CP, TSHX #### [facility] [employer] [address] [place] [address] Picker Tender: Chato Aguirre MD Calcium [Mass/Vol] 9.5 mg/dL Normal 8.6-10.4 [facility] Comment on above: Performed By: #### L IPRF, CDP, CP, TSHX #### [facility] [employer] [address] [place] [address] Picker Tender: Chato Aguirre MD Chloride [Moles/Vol] 102 mmol/L Normal 98-107 [facility] Comment on above: Performed By: #### L IPRF, CDP, CP, TSHX #### [facility] [employer] [address] [place] [address] Picker Tender: Chato Aguirre MD CO2 [Moles/Vol] 22 mmol/L Normal 20-31 [facility] Comment on above: Performed By: #### L IPRF, CDP, CP, TSHX #### [facility] [employer] [address] [place] [phone] Picker Tender: Chato Aguirre MD Creatinine [Mass/Vol] 0.46 mg/dL Low 0.50-0.90 [facility] Comment on above: Performed By: #### L IPRF, CDP, CP, TSHX #### [address] [address] Picker Tender: Chato Aguirre MD GFR, Amer >60 Normal >60 [facility] Comment on above: Performed By: #### L IPRF, CDP, CP, TSHX #### [facility] [employer] [address] [place] [address] Picker Tender: Chato Aguirre MD GFR,non Amer >60 Normal >60 [facility] Comment on above: Performed By: #### L IPRF, CDP, CP, TSHX #### [facility] [employer] [address] [place] [address] Picker Tender: Chato Aguirre MD Glucose [Mass/Vol] 92 mg/dL Normal 70-99 [facility] Comment on above: Performed By: #### L IPRF, CDP, CP, TSHX #### [facility] [employer] [address] [place] [address] Picker Tender: Chato Aguirre MD Potassium [Moles/Vol] 4.2 mmol/L Normal 3.7-5.3 [facility] Comment on above: Performed By: #### L IPRF, CDP, CP, TSHX #### [employer] [address] [place] [address] Picker Tender: Chato Aguirre MD Protein [Mass/Vol] 7.5 g/dL Normal 6.4-8.3 [facility] Comment on above: Performed By: #### L IPRF, CDP, CP, TSHX #### [employer] [address] [place] [address] Picker Tender: Chato Aguirre MD Sodium [Moles/Vol] 135 mmol/L Normal 135-144 [facility] Comment on above: Performed By: #### L IPRF, CDP, CP, TSHX #### [employer] [address] [place] [address] Picker Tender: Chato Aguirre MD Urea nitrogen [Mass/Vol] 11 mg/dL Normal 6-20 [facility] Comment on above: Performed By: #### L IPRF, CDP, CP, TSHX #### [employer] [address] [place] [address] Picker Tender: Chato Aguirre MD Lipid Prof, Fastingon 2020 Cholesterol [Mass/Vol] 186 mg/dL Normal <200 [facility] Comment on above: Result Comment: Cholesterol Guidelines: <200 Desirable 200-240 Borderline >240 Undesirable Performed By: #### L IPRF, CDP, CP, TSHX #### [employer] [address] [place] [phone] Picker Tender: Chato Aguirre MD Cholesterol in HDL [Mass/Vol] 49 mg/dL Normal >40 [facility] Comment on above: Result Comment: HDL Guidelines: <40 Undesirable 40-59 Borderline >59 Desirable Performed By: #### L IPRF, CDP, CP, TSHX #### [employer] [address] [place] [phone] Picker Tender: Chato Aguirre MD Cholesterol in LDL [Mass/Vol] 102 mg/dL Normal 0-130 [facility] Comment on above: Result Comment: LDL Guidelines: <100 Desirable 100-129 Near to/above Desirable 130-159 Borderline >159 Undesirable Direct (measured) LDL and calculated LDL are not interchangeable tests. Performed By: #### L IPRF, CDP, CP, TSHX #### [employer] [address] [place] [address] [phone] Picker Tender: Chato Aguirre MD Cholesterol.total/Chol esterol in HDL [Mass ratio] 3.8 {ratio} Normal <5 [facility] Comment on above: Performed By: #### L IPRF, CDP, CP, TSHX #### [facility] [address] [place] [address] [phone] Picker Tender: Chato Aguirre MD Triglyceride,Fasting 173 mg/dL High <150 [facility] Comment on above: Result Comment: Triglyceride Guidelines: <150 Desirable 150-199 Borderline 200-499 High >499 Very high Based on AHA Guidelines for fasting triglyceride, February 2012. Performed By: #### L IPRF, CDP, CP, TSHX #### [facility] [address] [place] [address] Picker Tender: Chato Aguirre MD TSH w/reflex to FT4on 2020 TSH Qn 3.38 m[IU]/L Normal 0.30-5.00 [facility] Comment on above: Performed By: #### L IPRF, CDP, CP, TSHX #### [employer] [address] [place] [address] Picker Tender: Chato Aguirre MD CBC Auto DifferentialOrdered By: Miguel Holley on 09-23-2020 Absolute Eos # 0.14 [facility] Phone: Absolute Immature Granulocyte <0.03 [employer] Phone: Absolute Lymph # 2.71 [facility] Phone: Absolute [place] # 0.48 [employer] Phone: Basophils (Bld) [#/Vol] 0.05 10*3/uL [employer] Phone: [phone] Basophils/100 WBC (Bld) 1 % 0 - 2 % [employer] Phone: Differential Type NOT REPORTED [employer] Phone: Eosinophils/100 WBC (Bld) 2 % 1 - 4 % [employer] Phone: Hematocrit (Bld) [Volume fraction] 42.9 % 36.3 - 47.1 % [employer] Phone: Hemoglobin.gastrointes tinal spec 1 Ql (Stl) 13.5 g/dL 11.9 - 15.1 g/dL [employer] Phone: Immature granulocytes/100 WBC (Bld) 0 % 0 [employer] Phone: Lymphocytes/100 WBC (Bld) 30 % 24 - 43 % [employer] Phone: MCH (RBC) [Entitic mass] 27.6 pg 25.2 - 33.5 pg [employer] Phone: MCHC (RBC) [Mass/Vol] 31.5 g/dL 28.4 - 34.8 g/dL [employer] Phone: MCV (RBC) [Entitic vol] 87.6 fL 82.6 - 102.9 fL [employer] Phone: [phone] Monocytes/100 WBC (Bld) 5 % 3 - 12 % [employer] Phone: NRBC Automated 0.0 0.0 per 100 WBC [employer] Phone: Platelet distribution width (Bld) [Ratio] 12.4 % 11.8 - 14.4 % [employer] Phone: Platelet Estimate NOT REPORTED [employer] Phone: Platelet mean volume (Bld) [Entitic vol] 11.6 fL 8.1 - 13.5 fL [employer] Phone: Platelets (Bld) [#/Vol] 246 10*3/uL [employer] Phone: RBC (Bld) [#/Vol] 4.90 10*6/uL 3.95 - 5.1 1 m/uL [employer] Phone: RBC (Bld) [#/Vol] NOT REPORTED [employer] Phone: Segmented neutrophils/100 WBC (Bld) 62 % 36 - 65 % [employer] Phone: Segs Absolute 5.79 [employer] Phone: WBC (Bld) [#/Vol] 9.2 10*3/uL [employer] Phone: WBC (Bld) [#/Vol] NOT REPORTED [employer] Phone: CBC with Diffon 09-23-2020 Abs. Basophil 0.05 k/uL Normal 0.00-0.20 [facility] Comment on above: Performed By: #### L IPRF, CDP, CP, TSHX #### [employer] [address] [place] [address] [id number] Picker Tender: Chato Aguirre MD Abs.Imm.Granulocyte <0.03 Normal 0.00-0.30 [facility] Comment on above: Performed By: #### L IPRF, CDP, CP, TSHX #### [employer] [address] [place] [address] [id number] Picker Tender: Chato Aguirre MD Abs.Neutrophil (Seg) 5.79 k/uL Normal 1.50-8.10 [facility] Comment on above: Performed By: #### L IPRF, CDP, CP, TSHX #### [address] [address] Picker Tender: Chato Aguirre MD Basophils/100 WBC (Bld) 1 % Normal 0-2 [facility] Comment on above: Performed By: #### L IPRF, CDP, CP, TSHX #### [address] [address] Picker Tender: Chato Aguirre MD Eosinophils (Bld) [#/Vol] 0.14 10*3/uL Normal 0.00-0.44 [facility] Comment on above: Performed By: #### L IPRF, CDP, CP, TSHX #### [address] [address] Picker Tender: Chato Aguirre MD Eosinophils/100 WBC (Bld) 2 % Normal 1-4 [facility] Comment on above: Performed By: #### L IPRF, CDP, CP, TSHX #### [place] [address] Picker Tender: Chato Aguirre MD Erythrocyte distribution width (RBC) [Ratio] 12.4 % Normal 11.8-14.4 [facility] Comment on above: Performed By: #### L IPRF, CDP, CP, TSHX #### [facility] [employer] [address] [place] [address] Picker Tender: Chato Aguirre MD Hematocrit (Bld) [Volume fraction] 42.9 % Normal 36.3-47.1 [facility] Comment on above: Performed By: #### L IPRF, CDP, CP, TSHX #### [facility] [employer] [address] [place] [address] Picker Tender: Chato Aguirre MD Hemoglobin (Bld) [Mass/Vol] 13.5 g/dL Normal 11.9-15.1 [facility] Comment on above: Performed By: #### L IPRF, CDP, CP, TSHX #### [address] [address] Picker Tender: Chato Aguirre MD Immature granulocytes/100 WBC (Bld) 0 % Normal 0 [facility] Comment on above: Performed By: #### L IPRF, CDP, CP, TSHX #### [place] [address] Picker Tender: Chato Aguirre MD Lymphocytes (Bld) [#/Vol] 2.71 10*3/uL Normal 1.10-3.70 [facility] Comment on above: Performed By: #### L IPRF, CDP, CP, TSHX #### [place] [address] Picker Tender: Chato Aguirre MD Lymphocytes/100 WBC (Bld) 30 % Normal 24-43 [facility] Comment on above: Performed By: #### L IPRF, CDP, CP, TSHX #### [place] [address] Picker Tender: Chato Aguirre MD MCH (RBC) [Entitic mass] 27.6 pg Normal 25.2-33.5 [facility] Comment on above: Performed By: #### L IPRF, CDP, CP, TSHX #### [place] [address] Picker Tender: Chato Aguirre MD MCHC (RBC) [Mass/Vol] 31.5 g/dL Normal 28.4-34.8 [facility] Comment on above: Performed By: #### L IPRF, CDP, CP, TSHX #### [address] [address] Picker Tender: Chato Aguirre MD MCV (RBC) [Entitic vol] 87.6 fL Normal 82.6-102.9 [facility] Comment on above: Performed By: #### L IPRF, CDP, CP, TSHX #### [address] [address] Picker Tender: Chato Aguirre MD Monocytes (Bld) [#/Vol] 0.48 10*3/uL Normal 0.10-1.20 [facility] Comment on above: Performed By: #### L IPRF, CDP, CP, TSHX #### [address] [address] Picker Tender: Chato Aguirre MD Monocytes/100 WBC (Bld) 5 % Normal 3-12 [facility] Comment on above: Performed By: #### L IPRF, CDP, CP, TSHX #### [address] [address] Picker Tender: Chato Aguirre MD Neutrophil (Seg) 62 % Normal 36-65 [facility] Comment on above: Performed By: #### L IPRF, CDP, CP, TSHX #### [address] [address] Picker Tender: Chato Aguirre MD NRBC Automated 0.0 per 100 WBC Normal 0.0 [facility] Comment on above: Performed By: #### L IPRF, CDP, CP, TSHX #### [address] [address] Picker Tender: Chato Aguirre MD Platelet mean volume (Bld) [Entitic vol] 11.6 fL Normal 8.1-13.5 [facility] Comment on above: Performed By: #### L IPRF, CDP, CP, TSHX #### [address] [address] Picker Tender: Chato Aguirre MD Platelets (Bld) [#/Vol] 246 10*3/uL Normal 138-453 [facility] Comment on above: Performed By: #### L IPRF, CDP, CP, TSHX #### [address] [address] Picker Tender: Chato Aguirre MD RBC (Bld) [#/Vol] 4.90 10*6/uL Normal 3.95-5.11 [facility] Comment on above: Performed By: #### L IPRF, CDP, CP, TSHX #### [facility] [employer] [address] [place] [address] Picker Tender: Chato Aguirre MD WBC (Bld) [#/Vol] 9.2 10*3/uL Normal 3.5-11.3 [facility] Comment on above: Performed By: #### L IPRF, CDP, CP, TSHX #### [address] [address] Picker Tender: Chato Aguirre MD Auto Diff Performed NOT REPORTED Normal [facility] Comment on above: Performed By: #### L IPRF, CDP, CP, TSHX #### [address] [address] Picker Tender: Chato Aguirre MD Platelet Estimate NOT REPORTED Normal [facility] Comment on above: Performed By: #### L IPRF, CDP, CP, TSHX #### [facility] [employer] [address] [place] [address] Picker Tender: Chato Aguirre MD RBC morphology finding Nom (Bld) NOT REPORTED Normal [facility] Comment on above: Performed By: #### L IPRF, CDP, CP, TSHX #### [facility] [employer] [address] [place] [address] Picker Tender: Chato Aguirre MD WBC Morphology NOT REPORTED Normal [facility] Comment on above: Performed By: #### L IPRF, CDP, CP, TSHX #### [facility] [address] [place], [place] [phone] Picker Tender: Chato Aguirre MD Comp Metabolic Profon 2020 BUN/CRE Ratio NOT REPORTED Normal 02-17 [facility] Comment on above: Performed By: #### L IPRF, CDP, CP, TSHX #### [facility] [address] [place], [place] [id number] Picker Tender: Chato Aguirre MD Staging: NOT REPORTED Normal [facility] Comment on above: Performed By: #### L IPRF, CDP, CP, TSHX #### [facility] [address] [place], [place] [phone] Picker Tender: Chato Aguirre MD Comprehensive Metabolic Pane lOrdered By: Miguel Holley on 09-23-2020 Albumin [Mass/Vol] 4.3 g/dL 3.5 - 5.2 g/dL [employer] Phone: Albumin/Globulin [Mass ratio] 1.3 {ratio} [employer] Phone: ALP (Bld) [Catalytic activity/Vol] 49 U/L 35 - 104 U/L [employer] Phone: ALT [Catalytic activity/Vol] 36 U/L High 5 - 33 U/L [employer] Phone: Anion gap [Moles/Vol] 11 mmol/L 9 - 17 mmol/L [employer] Phone: AST [Catalytic activity/Vol] 27 U/L <32 [employer] Phone: Bilirubin [Mass/Vol] 0.34 mg/dL 0.3 - 1 .2 mg/dL [employer] Phone: Calcium [Mass/Vol] 9.5 mg/dL 8.6 - 10. 4 mg/dL [employer] Phone: Chloride [Moles/Vol] 102 mmol/L 98 - 10 7 mmol/L [employer] Phone: CO2 [Moles/Vol] 22 mmol/L 20 - 31 mmol/L [employer] Phone: Creatinine [Mass/Vol] 0.46 mg/dL Low 0.50 - 0.90 mg/dL [employer] Phone: Free PSA/Total PSA [Mass fraction] 7.5 g/dL 6.4 - 8.3 g/dL [employer] Phone: GFR >60 >60 mL/min [employer] Phone: GFR Non- >60 >60 mL/min [employer] Phone: GFR/1.73 sq M.predicted MDRD (S/P/Bld) [Vol rate/Area] [employer] Phone: Comment on above: Average GFR for 20-2 9 years old: 116 mL/min/1.73sq m Chronic Kidney Disease: <60 mL/min/1.73sq m Kidney failure: <15 mL/min/1.73sq m eGFR calculated using average adult body mass. Additional eGFR calculator available at: http://www.Storific.Podimetrics/multiple_crcl_2012.htm GFR/1.73 sq M.predicted MDRD (S/P/Bld) [Vol rate/Area] NOT REPORTED [employer] Phone: Glucose [Mass/Vol] 92 mg/dL 70 - 99 mg/dL [employer] Phone: Potassium [Moles/Vol] 4.2 mmol/L 3.7 - 5.3 mmol/L [employer] Phone: Sodium [Moles/Vol] 135 mmol/L 135 - 144 mmol/L [employer] Phone: Urea nitrogen (BldV) [Mass/Vol] 11 mg/dL 6 - 20 mg/dL [facility] Work Phone: Urea nitrogen/Creatinine (Bld) [Mass ratio] NOT REPORTED [facility] Work Phone: Laboratory - Chemistry and C hemistry - challengeOrdered By: Miguel Holley on 09-23-2020 Albumin [Mass/Vol] 4.3 g/dL (3.5-5.2 ) [facility] Work Phone: Comment on above: Note: Responsible Ob service observer chief: CEEV AUTOFILE ([id number]) ALT [Catalytic activity/Vol] 36 U/L High (5-33 ) [facility] Work Phone: Comment on above: Note: Responsible Ob service observer chief: CEEV AUTOFILE ([id number]) Anion gap [Moles/Vol] 11 mmol/L (9-17 ) [facility] Work Phone: Comment on above: Note: Responsible Ob service observer chief: CEEV AUTOFILE ([id number]) AST [Catalytic activity/Vol] 27 U/L (<32 ) [facility] Work Phone: Comment on above: Note: Responsible Ob service observer chief: CEEV AUTOFILE ([id number]) Bilirubin [Mass/Vol] 0.34 mg/dL (0.3-1.2 ) [facility] Work Phone: Comment on above: Note: Responsible Ob service observer chief: CEEV AUTOFILE ([id number]) Calcium [Mass/Vol] 9.5 mg/dL (8.6-10.4 ) [facility] Work Phone: Comment on above: Note: Responsible Ob service observer chief: CEEV AUTOFILE ([id number]) Chloride [Moles/Vol] 102 mmol/L (98-107 ) [facility] Work Phone: Comment on above: Note: Responsible Ob service observer chief: CEEV AUTOFILE ([id number]) Cholesterol [Mass/Vol] 186 mg/dL (<200 ) [facility] Work Phone: Comment on above: Note: Cholesterol Gu idelines:<200 [id number] Borderline>240 UndesirableResponsible Observer: CEEV AUTOFILE ([id number]) Cholesterol.total/Chol esterol in HDL [Mass ratio] 3.8 {ratio} (<5 ) [facility] Work Phone: Comment on above: Note: Responsible Ob service observer chief: CEEV AUTOFILE ([id number]) CO2 [Moles/Vol] 22 mmol/L (20-31 ) [facility] Work Phone: Comment on above: Note: Responsible Ob service observer chief: CEEV AUTOFILE ([id number]) Creatinine [Mass/Vol] 0.46 mg/dL Low (0.50-0.90 ) [facility] Work Phone: Comment on above: Note: Responsible Ob service observer chief: CEEV AUTOFILE ([id number]) Glucose [Mass/Vol] 92 mg/dL (70-99 ) [facility] Work Phone: Comment on above: Note: Responsible Ob service observer chief: CEEV AUTOFILE ([id number]) Magnesium [Mass/Vol] 49 mg/dL (>40 ) [facility] Work Phone: Comment on above: Note: HDL Guidelines :<40 [id number] Borderline>59 DesirableResponsible Observer: CEEV AUTOFILE ([id number]) Magnesium [Mass/Vol] 102 mg/dL (0-130 ) [facility] Work Phone: Comment on above: Note: LDL Guidelines :<100 [id number] Near to/above [id number] Borderline>159 UndesirableDirect (measured) LDL and calculated LDL are not interchangeable tests.Responsible Observer: CEEV AUTOFILE ([id number]) Magnesium [Mass/Vol] 173 mg/dL High (<150 ) [facility] Work Phone: Comment on above: Note: Triglyceride G uidelines:<150 [id number] High>499 Very highBased on AHA Guidelines for fasting triglyceride, February 2012.Responsible Observer: CEEV AUTOFILE ([id number]) Potassium [Moles/Vol] 4.2 mmol/L (3.7-5.3 ) [facility] Work Phone: Comment on above: Note: Responsible Ob service observer chief: CEEV AUTOFILE ([id number]) Protein [Mass/Vol] 7.5 g/dL (6.4-8.3 ) [facility] Work Phone: Comment on above: Note: Responsible Ob service observer chief: CEEV AUTOFILE ([id number]) Sodium [Moles/Vol] 135 mmol/L (135-144 ) [facility] Work Phone: Comment on above: Note: Responsible Ob service observer chief: CEEV AUTOFILE ([id number]) Urea nitrogen [Mass/Vol] 11 mg/dL (6-20 ) [facility] Work Phone: Comment on above: Note: Responsible Ob service observer chief: CEEV AUTOFILE ([id number]) Laboratory - Hematology and Cell countsOrdered By: Miguel Holley on 09-23-2020 Basophils/100 WBC (Bld) 1 % (0-2 ) [facility] Work Phone: Comment on above: Note: Responsible Ob service observer chief: XNV AUTOFILE ([id number]) Eosinophils (Bld) [#/Vol] 0.14 10*3/uL (0.00-0.44 ) [facility] Work Phone: Comment on above: Note: Responsible Ob service observer chief: XNV AUTOFILE ([id number]) Eosinophils/100 WBC (Bld) 2 % (1-4 ) [facility] Work Phone: Comment on above: Note: Responsible Ob service observer chief: XNV AUTOFILE (3018) Erythrocyte distribution width (RBC) [Ratio] 12.4 % (11.8-14.4 ) [facility] Work Phone: Comment on above: Note: Responsible Ob service observer chief: XNV AUTOFILE (3018) Hematocrit (Bld) [Volume fraction] 42.9 % (36.3-47.1 ) [facility] Work Phone: Comment on above: Note: Responsible Ob service observer chief: XNV AUTOFILE (3018) Hemoglobin (Bld) [Mass/Vol] 13.5 g/dL (11.9-15.1 ) [facility] Work Phone: Comment on above: Note: Responsible Ob service observer chief: XNV AUTOFILE (3018) Immature granulocytes/100 WBC (Bld) 0 % (0 ) [facility] Work Phone: Comment on above: Note: Responsible Ob service observer chief: XNV AUTOFILE (3018) Lymphocytes (Bld) [#/Vol] 2.71 10*3/uL (1.10-3.70 ) [facility] Work Phone: Comment on above: Note: Responsible Ob service observer chief: XNV AUTOFILE (3018) Lymphocytes/100 WBC (Bld) 30 % (24-43 ) [facility] Work Phone: Comment on above: Note: Responsible Ob service observer chief: XNV AUTOFILE (3018) MCH (RBC) [Entitic mass] 27.6 pg (25.2-33.5 ) [facility] Work Phone: Comment on above: Note: Responsible Ob service observer chief: XNV AUTOFILE (3018) MCHC (RBC) [Mass/Vol] 31.5 g/dL (28.4-34.8 ) [facility]: Comment on above: Note: Responsible Ob service observer chief: XNV AUTOFILE (3018) MCV (RBC) [Entitic vol] 87.6 fL (82.6-102.9 ) [facility] Work Phone: Comment on above: Note: Responsible Ob service observer chief: XNV AUTOFILE ([id number]) Monocytes (Bld) [#/Vol] 0.48 10*3/uL (0.10-1.20 ) [facility] Work Phone: Comment on above: Note: Responsible Ob service observer chief: XNV AUTOFILE (3018) Monocytes/100 WBC (Bld) 5 % (3-12 ) [facility] Work Phone: Comment on above: Note: Responsible Ob service observer chief: XNV AUTOFILE (8) Platelet mean volume (Bld) [Entitic vol] 11.6 fL (8.1-13.5 ) [facility] Work Phone: Comment on above: Note: Responsible Ob service observer chief: XNV AUTOFILE (3017) Platelets (Bld) [#/Vol] 246 10*3/uL (138-453 ) [facility] Work Phone: Comment on above: Note: Responsible Ob service observer chief: XNV AUTOFILE (3017) RBC (Bld) [#/Vol] 4.90 10*6/uL (3.95-5.11 ) [facility] Work Phone: Comment on above: Note: Responsible Ob service observer chief: XNV AUTOFILE (3017) RBC morphology finding Nom (Bld) NOT REPORTED [facility] Work Phone: Segmented neutrophils/100 WBC (Bld) 62 % (36-65 ) [facility] Work Phone: Comment on above: Note: Responsible Ob service observer chief: XNV AUTOFILE (3017) WBC (Bld) [#/Vol] 9.2 10*3/uL (3.5-11.3 ) [facility] Work Phone: Comment on above: Note: Responsible Ob service observer chief: XNV AUTOFILE (3017) Lipid Prof, Fastingon 2020 Cholesterol,VLDL NOT REPORTED Normal 06-29 [facility] Comment on above: Performed By: #### L IPRF, CDP, CP, TSHX #### [employer] [address] [place] [address] Picker Tender: Chato Aguirre MD Lipid, FastingOrdered By: Zandra Holley on 09-23-2020 Cholesterol [Mass/Vol] 186 mg/dL <200 [employer] Phone: Comment on above: Cholesterol Guidelines: <200 Desirable 200-240 Borderline >240 Undesirable Cholesterol in HDL [Mass/Vol] 49 mg/dL >40 [employer] Phone: Comment on above: HDL Guidelines: <40 Undesirable 40-59 Borderline >59 Desirable Cholesterol in LDL [Mass/Vol] 102 mg/dL 0 - 130 mg/dL [employer] Phone: Comment on above: LDL Guidelines: <100 Desirable 100-129 Near to/above Desirable 130-159 Borderline >159 Undesirable Direct (measured) LDL and calculated LDL are not interchangeable tests. Cholesterol in VLDL [Mass/Vol] NOT REPORTED High 1 - 30 mg/dL [employer] Phone: Cholesterol.total/Chol esterol in HDL [Mass ratio] 3.8 {ratio} <5 [employer] Phone: Triglyceride, Fasting 173 mg/dL High <150 [employer] Phone: Comment on above: Triglyceride Guidelines: <150 Desirable 150-199 Borderline 200-499 High >499 Very high Based on AHA Guidelines for fasting triglyceride, February 2012. No Panel InformationOrdered By: Miguel Holley on 09-23-2020 Interpretation and review of laboratory results Abnormal [employer] Phone: (cont.) See Note [facility] Work Phone: Comment on above: Note: Average GFR fo r 20-29 years old:116 mL/min/1.73sq mChronic Kidney Disease:<60 mL/min/1.73sq mKidney failure:<15 mL/min/1.73sq meGFR calculated using average adult body mass. Additional eGFR calculatoravailable at:http://www.globalrph.com/multiple_crcl_2011.htmResponsible Observer: CEEV AUTOFILE (3003) Abs. Basophil 0.05 k/uL (0.00-0.20 ) [facility] Work Phone: Comment on above: Note: Responsible Ob service observer chief: XNV AUTOFILE ([id number]) Abs.Imm.Granulocyte <0.03 k/uL (0.00-0.30 ) [facility] Work Phone: Comment on above: Note: Responsible Ob service observer chief: XNV AUTOFILE ([id number]) Abs.Neutrophil (Seg) 5.79 k/uL (1.50-8.10 ) [facility] Work Phone: Comment on above: Note: Responsible Ob service observer chief: XNV AUTOFILE ([id number]) Albumin/Glob Ratio 1.3 (1.0-2.5 ) [facility] Work Phone: Comment on above: Note: Responsible Ob service observer chief: CEEV AUTOFILE ([id number]) Alkaline Phos 49 U/L (35-104 ) [facility] Work Phone: Comment on above: Note: Responsible Ob service observer chief: CEEV AUTOFILE ([id number]) Auto Diff Performed NOT REPORTED [facility] Work Phone: BUN/CRE Ratio NOT REPORTED (9-20 ) [facility] Work Phone: Cholesterol,VLDL NOT REPORTED mg/dL (1-30 ) [facility] Work Phone: GFR, Amer >60 mL/min (>60 ) [facility] Work Phone: Comment on above: Note: Responsible Ob service observer chief: CEEV AUTOFILE ([id number]) GFR,non Amer >60 mL/min (>60 ) [facility] Work Phone: Comment on above: Note: Responsible Ob service observer chief: CEEV AUTOFILE ([id number]) NRBC Automated 0.0 per_100_WBC (0.0 ) [facility] Work Phone: Comment on above: Note: Responsible Ob service observer chief: XNV AUTOFILE ([id number]) Platelet Estimate NOT REPORTED [facility] Work Phone: Reported Physicians See Note [facility] Work Phone: Comment on above: Note: Reported Physi cians:Ordering: Cotton, AimeeAttending: Cotton, AimeeReferring: Cotton, Miguel Staging: NOT REPORTED [facility] Work Phone: Thyroid Stim. Horm. 3.38 mIU/L (0.30-5.00 ) [facility] Work Phone: Comment on above: Note: Responsible Ob service observer chief: CEEV AUTOFILE ([id number]) WBC Morphology NOT REPORTED [facility] Work Phone: TSH with ReflexOrdered By: Kamryn Holley on 09-23-2020 TSH Qn 3.38 m[IU]/L [facility] Work Phone: APTTon 04-08-2020 aPTT Coag (Bld) [Time] 25.2 s [place], [place] Comment on above: IV Heparin Therapy Range: 62.0-94.0 Brain Natriuretic Peptideon 04-08-2020 Natriuretic peptide B (Bld) [Mass/Vol] pg/mL <300 pg/mL [place], [place] Comment on above: Pro-BNP results ayse ot be compared to BNP results. Natriuretic peptide B (Bld) [Mass/Vol] Pro-BNP Reference Range: [place], [place] Comment on above: Rule Out: <300 Weaver Zone: Age <50 300-450 Age 50-75 300-900 Age >75 300-1800 Usually represents mild to moderate HF but other cardiopulmonary causes cannot be ruled out. Rule In: Age <50 >450 Age 50-75 >900 Age >75 >1800 CBCon 04-08-2020 Erythrocyte distribution width (RBC) [Ratio] 11.9 % 11.8 - 14.4 % [place] Hematocrit (Bld) [Volume fraction] 37.9 % 36.3 - 47.1 % [place] Hemoglobin (Bld) [Mass/Vol] 12.5 g/dL 11.9 - 15.1 g/dL [place] MCH (RBC) [Entitic mass] 27.8 pg 25.2 - 33.5 pg [place] MCHC (RBC) [Mass/Vol] 33.0 g/dL 28.4 - 34.8 g/dL [place] MCV (RBC) [Entitic vol] 84.2 fL 82.6 - 102.9 fL [place] Platelet mean volume (Bld) [Entitic vol] 10.9 fL 8.1 - 13.5 fL [place] Platelets (Bld) [#/Vol] 184 10*3/uL [place] RBC (Bld) [#/Vol] 4.50 10*6/uL 3.95 - 5.1 1 m/uL [place] WBC (Bld) [#/Vol] 7.8 10*3/uL [place] WBC (Bld) [#/Vol] 0.0 10*3/uL 0.0 per 10 0 WBC [place] COVID-19on 04-08-2020 Interpretation and review of laboratory results Abnormal [place] SARS-CoV-2, Rapid DETECTED Abnormal Not Detected [place] Comment on above: Rapid NAAT: The specimen is POSITIVE for SARS-Cov-2, the novel coronavirus associated with COVID-19. This test has been authorized by the FDA under an Emergency Use Authorization (EUA) for use by authorized laboratories. The ID NOW COVID-19 assay is designed to detect the virus that causes COVID-19 in patients with signs and symptoms of infection who are suspected of COVID-19. An individual without symptoms of COVID-19 and who is not shedding SARS-CoV-2 virus would expect to have a negative (not detected) result in this assay. Fact sheet for Healthcare Providers: https://www.fda.gov/media/128023/download Fact sheet for Patients: https://www.fda.gov/media/903730/download Methodology: Isothermal Nucleic Acid Amplification Results reported to the appropriate Health Department Source .NASOPHARYNGEAL SWAB [place], [place] CT CHEST PULMONARY EMBOLISM W CONTRASTon 04-08-2020 Unremarkable appeara nce of the chest with no evidence of pulmonary embolism and clear lungs. Incidentally noted hepatic fatty infiltration. [place], [place] EXAMINATION: CTA OF THE CHEST 04/08/2020 3:00 pm TECHNIQUE: CTA of the chest was performed after the administration of intravenous contrast. Multiplanar reformatted images are provided for review. MIP images are provided for review. Dose modulation, iterative reconstruction, and/or weight based adjustment of the mA/kV was utilized to reduce the radiation dose to as low as reasonably achievable. COMPARISON: None. HISTORY: ORDERING SYSTEM PROVIDED HISTORY: Hemoptysis FINDINGS: Pulmonary Arteries: Pulmonary arteries are adequately opacified for evaluation. No evidence of intraluminal filling defect to suggest pulmonary embolism. Main pulmonary artery is normal in caliber. Mediastinum: No evidence of mediastinal lymphadenopathy. Normal heart size. Normal thoracic aorta. Lungs/pleura: The lungs are without acute process. No focal consolidation or pulmonary edema. No evidence of pleural effusion or pneumothorax. Upper Abdomen: Fatty infiltration of the visualized liver. Soft Tissues/Bones: No significant osseous or soft tissue abnormality. [place], [place] Jean Marie, pn Incoming Radiant Results From [employer] - 04/08/2020 4:12 PM EST EXAMINATION: CTA OF THE CHEST 04/08/2020 3:00 pm TECHNIQUE: CTA of the chest was performed after the administration of intravenous contrast. Multiplanar reformatted images are provided for review. MIP images are provided for review. Dose modulation, iterative reconstruction, and/or weight based adjustment of the mA/kV was utilized to reduce the radiation dose to as low as reasonably achievable. COMPARISON: None. HISTORY: ORDERING SYSTEM PROVIDED HISTORY: Hemoptysis FINDINGS: Pulmonary Arteries: Pulmonary arteries are adequately opacified for evaluation. No evidence of intraluminal filling defect to suggest pulmonary embolism. Main pulmonary artery is normal in caliber. Mediastinum: No evidence of mediastinal lymphadenopathy. Normal heart size. Normal thoracic aorta. Lungs/pleura: The lungs are without acute process. No focal consolidation or pulmonary edema. No evidence of pleural effusion or pneumothorax. Upper Abdomen: Fatty infiltration of the visualized liver. Soft Tissues/Bones: No significant osseous or soft tissue abnormality. IMPRESSION: Unremarkable appearance of the chest with no evidence of pulmonary embolism and clear lungs. Incidentally noted hepatic fatty infiltration. [place], [place] Comprehensive Metabolic Pane fermin 04-08-2020 Albumin [Mass/Vol] 4.1 g/dL 3.5 - 5.2 g/dL [place] Albumin/Globulin [Mass ratio] 1.4 {ratio} [place] ALP [Catalytic activity/Vol] 62 U/L 35 - 104 U/L [place] ALT [Catalytic activity/Vol] 19 U/L 5 - 33 U/[place] Anion gap [Moles/Vol] 10 mmol/L 9 - 17 mmol/L [place] AST [Catalytic activity/Vol] 20 U/L <32 [place] Bilirubin Ql (U) 0.48 mg/dL 0.3 - 1.2 mg/dL [place] Bun/Cre Ratio 23 High [place] Calcium [Mass/Vol] 8.9 mg/dL 8.6 - 10. 4 mg/dL [place] Chloride [Moles/Vol] 102 mmol/L 98 - 10 7 mmol/L [place] CO2 [Moles/Vol] 23 mmol/L 20 - 31 mmol/L [place] Creatinine [Mass/Vol] 0.47 mg/dL Low 0.5 - 0.9 mg/dL [place] GFR >60 >60 mL/min [place] GFR Non- >60 >60 mL/min [place] Glucose [Mass/Vol] 88 mg/dL 70 - 99 mg/dL [place] Interpretation and review of laboratory results Abnormal [place] Potassium [Moles/Vol] 3.7 mmol/L 3.7 - 5.3 mmol/L [place] Protein [Mass/Vol] 7.1 g/dL 6.4 - 8.3 g/dL [place] Sodium [Moles/Vol] 135 mmol/L 135 - 144 mmol/L [place] Urea nitrogen [Mass/Vol] 11 mg/dL 6 - 20 mg/dL [place] Metabolic Panelon 04-08-2020 GFR/1.73 sq M predicted among non-blacks MDRD (S/P/Bld) [Vol rate/Area] [place] Comment on above: Stage 1: Some kidney damage normal GFR Stage 2: Mild kidney damage GFR 60-89 Stage 3: Moderate kidney damage GFR 30-59 Stage 4: Severe kidney damage GFR 15-29 Stage 5: Severe kidney damage GFR <15 ESRD - chronic treatment by dialysis or transplant Average GFR for 20-2 9 years old: 116 mL/min/1.73sq m Chronic Kidney Disease: <60 mL/min/1.73sq m Kidney failure: <15 mL/min/1.73sq m eGFR calculated using average adult body mass. Additional eGFR calculator available at: http://www.LuxTicket.sg/multiple_crcl_2012.htm Otheron 04-08-2020 SARS-CoV-2 [place] , Urineon 0 Beta HCG ( test) Ql (U) Negative NEGATIVE [place] Comment on above: Specimens with hCG l evels near the threshold of the test (25 mIU/mL) may give a negative or indeterminate result. In such cases, another test should be performed with a new specimen in 48-72 hours. If early is suspected clinically in this setting, correlation with quantitative serum b-hCG level is suggested. [employer] has confirmed the use of plasma for this test. This has not been cleared or approved by the U.S. Food and Drug Administration. The FDA has determined that such clearance is not necessary. Protime-INRon 04-08-2020 INR Coag (PPP) [Relative time] 1.0 {INR} [place] Comment on above: Non-therapeutic Range: INR = 0.9-1.2 Therapeutic Range: Moderate Anticoagulant Intensity: INR = 2.0-3.0 High Anticoagulant Intensity: INR = 2.5-3.5 PT Coag (PPP) [Time] 13.2 s [place] Troponinon 04-08-2020 Troponin I.cardiac [Mass/Vol] NOT REPORTED [facility] [place] [place] Troponin T.cardiac [Mass/Vol] NOT REPORTED <0.03 ng/mL [facility] [place] Troponin, High Sensitivity <6 0 - 14 ng/L [facility] [place] Comment on above: High Sensitivity Troponin values cannot be compared with other Troponin methodologies. Patients with high levels of Biotin oral intake (i.e >5mg/day) may have falsely decreased Troponin levels. Samples collected within 8 hours of biotin intake may require additional information for diagnosis. CBC Auto Differentialon 02-0 -2020 Basophils (Bld) [#/Vol] 0.05 10*3/uL [employer] Phone: Basophils/100 WBC (Bld) 1 % 0 - 2 % [employer] Phone: Differential Type NOT REPORTED [employer] Phone: Eosinophils (Bld) [#/Vol] 0.15 10*3/uL [employer] Phone: Eosinophils/100 WBC (Bld) 1 % 1 - 4 % [employer] Phone: Erythrocyte distribution width (RBC) [Ratio] 12.1 % 11.8 - 14.4 % [employer] Phone: Hematocrit (Bld) [Volume fraction] 44.5 % 36.3 - 47.1 % [employer] Phone: Hemoglobin (Bld) [Mass/Vol] 14.0 g/dL 11.9 - 15.1 g/dL [employer] Phone: Immature granulocytes (Bld) [#/Vol] 0 % 0 [employer] Phone: Immature granulocytes (Bld) [#/Vol] 10*3/uL [employer] Phone: Interpretation and review of laboratory results Abnormal [employer] Phone: Lymphocytes (Bld) [#/Vol] 2.83 10*3/uL [employer] Phone: Lymphocytes/100 WBC (Bld) 27 % 24 - 43 % [employer] Phone: MCH (RBC) [Entitic mass] 27.6 pg 25.2 - 33.5 pg [employer] Phone: MCHC (RBC) [Mass/Vol] 31.5 g/dL 28.4 - 34.8 g/dL [employer] Phone: MCV (RBC) [Entitic vol] 87.6 fL 82.6 - 102.9 fL [employer] Phone: Monocytes (Bld) [#/Vol] 0.52 10*3/uL [employer] Phone: Monocytes/100 WBC (Bld) 5 % 3 - 12 % [employer] Phone: Platelet mean volume (Bld) [Entitic vol] 12.0 fL 8.1 - 13.5 fL [employer] Phone: Platelets (Bld) [#/Vol] NOT REPORTED [employer] Phone: Platelets (Bld) [#/Vol] 241 10*3/uL [employer] Phone: RBC (Bld) [#/Vol] 5.08 10*6/uL 3.95 - 5.1 1 m/uL [employer] Phone: RBC morphology finding Nom (Bld) NOT REPORTED [employer] Phone: Segmented neutrophils/100 WBC (Bld) 66 % High 36 - 65 % [employer] Phone: Segs Absolute 7.04 [employer] Phone: [phone] WBC (Bld) [#/Vol] 10.6 10*3/uL [employer] Phone: WBC (Bld) [#/Vol] 0.0 10*3/uL 0.0 per 10 0 WBC [employer] Phone: WBC Morphology NOT REPORTED [employer] Phone: Cardiacon 07-06-2019 Cholesterol [Mass/Vol] 198 mg/dL (<200) [facility] Work Phone: Comment on above: Note: Cholesterol Gu idelines:<200 [id number] Borderline>240 UndesirableResponsible Observer: CCEV AUTOFILE ([id number]) Comprehensive Metabolic Pane fermin 07-06-2019 Albumin [Mass/Vol] 4.5 g/dL 3.5 - 5.2 g/dL [employer] Phone: Albumin/Globulin [Mass ratio] 1.4 {ratio} [employer] Phone: ALP [Catalytic activity/Vol] 62 U/L 35 - 104 U/L [employer] Phone: ALT [Catalytic activity/Vol] 39 U/L High 5 - 33 U/L [employer] Phone: Anion gap [Moles/Vol] 16 mmol/L 9 - 17 mmol/L [employer] Phone: AST [Catalytic activity/Vol] 32 U/L High <32 [employer] Phone: Bilirubin Ql (U) 0.25 mg/dL Low 0.3 - 1.2 mg/dL [employer] Phone: Bun/Cre Ratio NOT REPORTED [employer] Phone: Calcium [Mass/Vol] 9.8 mg/dL 8.6 - 10. 4 mg/dL [employer] Phone: Chloride [Moles/Vol] 103 mmol/L 98 - 10 7 mmol/L [employer] Phone: CO2 [Moles/Vol] 19 mmol/L Low 20 - 31 mmol/L [employer] Phone: Creatinine [Mass/Vol] 0.51 mg/dL 0.5 - 0.9 mg/dL [employer] Phone: GFR >60 >60 mL/min [place] Phone: GFR Non- >60 >60 mL/min [employer] Phone: GFR/1.73 sq M predicted among non-blacks MDRD (S/P/Bld) [Vol rate/Area] [employer] Phone: Comment on above: Average GFR for 20-2 9 years old: 116 mL/min/1.73sq m Chronic Kidney Disease: <60 mL/min/1.73sq m Kidney failure: <15 mL/min/1.73sq m eGFR calculated using average adult body mass. Additional eGFR calculator available at: http://www.LuxTicket.sg/multiple_crcl_2012.htm GFR/1.73 sq M predicted among non-blacks MDRD (S/P/Bld) [Vol rate/Area] NOT REPORTED [employer] Phone: Glucose [Mass/Vol] 89 mg/dL 70 - 99 mg/dL [employer] Phone: Interpretation and review of laboratory results Abnormal [employer] Phone: Potassium [Moles/Vol] 4.6 mmol/L 3.7 - 5.3 mmol/L [employer] Phone: Protein [Mass/Vol] 7.8 g/dL 6.4 - 8.3 g/dL [employer] Phone: Sodium [Moles/Vol] 138 mmol/L 135 - 144 mmol/L [employer] Phone: Urea nitrogen [Mass/Vol] 14 mg/dL 6 - 20 mg/dL [employer] Phone: Hematologyon 07-06-2019 Basophils/100 WBC (Bld) 1 % (0-2) [facility] Work Phone: Comment on above: Note: Responsible Ob service observer chief: XNV AUTOFILE ([id number]) Eosinophils (Bld) [#/Vol] 0.15 10*3/uL (0.00-0.44) [facility] Work Phone: Comment on above: Note: Responsible Ob service observer chief: XNV AUTOFILE ([id number]) Eosinophils/100 WBC (Bld) 1 % (1-4) [facility] Work Phone: Comment on above: Note: Responsible Ob service observer chief: XNV AUTOFILE ([id number]) Hematocrit (Bld) [Volume fraction] 44.5 % (36.3-47.1) [facility] Work Phone: Comment on above: Note: Responsible Ob service observer chief: XNV AUTOFILE ([id number]) Hemoglobin (Bld) [Mass/Vol] 14.0 g/dL (11.9-15.1) [facility] Work Phone: Comment on above: Note: Responsible Ob service observer chief: XNV AUTOFILE ([id number]) Lymphocytes (Bld) [#/Vol] 2.83 10*3/uL (1.10-3.70) [facility] Work Phone: Comment on above: Note: Responsible Ob service observer chief: XNV AUTOFILE ([id number]) Lymphocytes/100 WBC (Bld) 27 % (24-43) [facility] Work Phone: Comment on above: Note: Responsible Ob service observer chief: XNV AUTOFILE ([id number]) MCH (RBC) [Entitic mass] 27.6 pg (25.2-33.5) [facility] Work Phone: Comment on above: Note: Responsible Ob service observer chief: XNV AUTOFILE ([id number]) MCV (RBC) [Entitic vol] 87.6 fL (82.6-102.9) [facility] Work Phone: Comment on above: Note: Responsible Ob service observer chief: XNV AUTOFILE ([id number]) Monocytes (Bld) [#/Vol] 0.52 10*3/uL (0.10-1.20) [facility] Work Phone: Comment on above: Note: Responsible Ob service observer chief: XNV AUTOFILE ([id number]) Monocytes/100 WBC (Bld) 5 % (3-12) [facility] Work Phone: Comment on above: Note: Responsible Ob service observer chief: XNV AUTOFILE ([id number]) Platelets (Bld) [#/Vol] NOT REPORTED [facility] Work Phone: Platelets (Bld) [#/Vol] 241 10*3/uL (138-453) [facility] Work Phone: Comment on above: Note: Responsible Ob service observer chief: XNV AUTOFILE ([id number]) RBC (Bld) [#/Vol] 5.08 10*6/uL (3.95-5.11) [facility] Work Phone: Comment on above: Note: Responsible Ob service observer chief: XNV AUTOFILE ([id number]) RBC morphology finding Nom (Bld) NOT REPORTED [facility] Work Phone: WBC (Bld) [#/Vol] 0.0 per_100_WBC (0.0) [facility] Work Phone: Comment on above: Note: Responsible Ob service observer chief: XNV AUTOFILE ([id number]) WBC (Bld) [#/Vol] 10.6 10*3/uL (3.5-11.3) [facility] Work Phone: Comment on above: Note: Responsible Ob service observer chief: XNV AUTOFILE ([id number]) Lipid, Fastingon 07-06-2019 Cholesterol [Mass/Vol] 198 mg/dL <200 [facility] Work Phone: Comment on above: Cholesterol Guidelines: <200 Desirable 200-240 Borderline >240 Undesirable Cholesterol in HDL [Mass/Vol] 53 mg/dL >40 [employer] Phone: Comment on above: HDL Guidelines: <40 Undesirable 40-59 Borderline >59 Desirable Cholesterol in LDL [Mass/Vol] 118 mg/dL 0 - 130 mg/dL [employer] Phone: Comment on above: LDL Guidelines: <100 Desirable 100-129 Near to/above Desirable 130-159 Borderline >159 Undesirable Direct (measured) LDL and calculated LDL are not interchangeable tests. Cholesterol in VLDL [Mass/Vol] NOT REPORTED 1 - 30 mg/dL [employer] Phone: Cholesterol.total/Chol esterol in HDL [Mass ratio] 3.7 {ratio} <5 [employer] Phone: Triglyceride, Fasting 135 mg/dL <150 [facility] Phone: Comment on above: Triglyceride Guidelines: <150 Desirable 150-199 Borderline 200-499 High >499 Very high Based on AHA Guidelines for fasting triglyceride, February 2012. Metabolic Panelon 07-06-2019 Albumin [Mass/Vol] 4.5 g/dL (3.5-5.2) [facility] Work Phone: Comment on above: Note: Responsible Ob service observer chief: CCEV AUTOFILE ([id number]) ALT [Catalytic activity/Vol] 39 U/L High (5-33) [facility] Work Phone: Comment on above: Note: Responsible Ob service observer chief: CCEV AUTOFILE ([id number]) Anion gap [Moles/Vol] 16 mmol/L (9-17) [facility] Work Phone: Comment on above: Note: Responsible Ob service observer chief: CCEV AUTOFILE ([id number]) AST [Catalytic activity/Vol] 32 U/L High (<32) [facility] Work Phone: Comment on above: Note: Responsible Ob service observer chief: CCEV AUTOFILE ([id number]) Bilirubin [Mass/Vol] 0.25 mg/dL Low (0.3-1.2) [facility] Work Phone: Comment on above: Note: Responsible Ob service observer chief: CCEV AUTOFILE ([id number]) Calcium [Mass/Vol] 9.8 mg/dL (8.6-10.4) [facility] Work Phone: Comment on above: Note: Responsible Ob service observer chief: CCEV AUTOFILE ([id number]) Chloride [Moles/Vol] 103 mmol/L (98-107) [facility] Work Phone: Comment on above: Note: Responsible Ob service observer chief: CCEV AUTOFILE ([id number]) CO2 [Moles/Vol] 19 mmol/L Low (20-31) [facility] Work Phone: Comment on above: Note: Responsible Ob service observer chief: CCEV AUTOFILE ([id number]) Creatinine [Mass/Vol] 0.51 mg/dL (0.50-0.90) [facility] Work Phone: Comment on above: Note: Responsible Ob service observer chief: CCEV AUTOFILE ([id number]) Glucose [Mass/Vol] 89 mg/dL (70-99) [facility] Work Phone: Comment on above: Note: Responsible Ob service observer chief: CCEV AUTOFILE ([id number]) Potassium [Moles/Vol] 4.6 mmol/L (3.7-5.3) [facility] Work Phone: Comment on above: Note: Responsible Ob service observer chief: CCEV AUTOFILE ([id number]) Protein [Mass/Vol] 7.8 g/dL (6.4-8.3) [facility] Work Phone: Comment on above: Note: Responsible Ob service observer chief: CCEV AUTOFILE ([id number]) Sodium [Moles/Vol] 138 mmol/L (135-144) [facility] Work Phone: Comment on above: Note: Responsible Ob service observer chief: CCEV AUTOFILE ([id number]) Urea nitrogen [Mass/Vol] 14 mg/dL (6-20) [facility] Work Phone: Comment on above: Note: Responsible Ob service observer chief: CCEV AUTOFILE ([id number]) Otheron 07-06-2019 (cont.) See Note [facility] Work Phone: Comment on above: Note: Average GFR fo r 20-29 years old:116 mL/min/1.73sq mChronic Kidney Disease:<60 mL/min/1.73sq mKidney failure:<15 mL/min/1.73sq meGFR calculated using average adult body mass. Additional eGFR calculatoravailable at:http://www.LuxTicket.sg/multiple_crcl_2012.htmResponsible Observer: CCEV AUTOFILE ([id number]) Abs. Basophil 0.05 k/uL (0.00-0.20) [facility] Work Phone: Comment on above: Note: Responsible Ob service observer chief: XNV AUTOFILE ([id number]) Abs.Imm.Granulocyte <0.03 k/uL (0.00-0.30) [facility] Work Phone: Comment on above: Note: Responsible Ob service observer chief: XNV AUTOFILE ([id number]) Abs.Neutrophil (Seg) 7.04 k/uL (1.50-8.10) a [facility] Work Phone: Comment on above: Note: Responsible Ob service observer chief: XNV AUTOFILE ([id number]) Albumin/Glob Ratio 1.4 (1.0-2.5) [facility] Work Phone: Comment on above: Note: Responsible Ob service observer chief: CCEV AUTOFILE ([id number]) Alkaline Phos 62 U/L (35-104) [facility] Work Phone: Comment on above: Note: Responsible Ob service observer chief: CCEV AUTOFILE ([id number]) Auto Diff Performed NOT REPORTED [facility] Work Phone: BUN/CRE Ratio NOT REPORTED (9-20) [facility] Work Phone: Cholesterol,HDL 53 mg/dL (>40) [facility] Work Phone: Comment on above: Note: HDL Guidelines :<40 [id number] Borderline>59 DesirableResponsible Observer: CCEV AUTOFILE ([id number]) Cholesterol,LDL 118 mg/dL (0-130) [facility] Work Phone: Comment on above: Note: LDL Guidelines :<100 [id number] Near to/above [id number] Borderline>159 UndesirableDirect (measured) LDL and calculated LDL are not interchangeable tests.Responsible Observer: CCEV AUTOFILE ([id number]) Cholesterol,VLDL NOT REPORTED mg/dL (1-30) [facility] Work Phone: Cholesterol.total/Chol esterol in HDL [Mass ratio] 3.7 {ratio} (<5) [facility] Work Phone: Comment on above: Note: Responsible Ob service observer chief: CCEV AUTOFILE ([id number]) Erythrocyte distribution width (RBC) [Ratio] 12.1 % (11.8-14.4) [facility] Work Phone: Comment on above: Note: Responsible Ob service observer chief: XNV AUTOFILE ([id number]) Free Insulin 34 uIU/mL High (3-19) [facility] Work Phone: Comment on above: Note: Responsible Ob service observer chief: LAB ARUP ([id number]) GFR, Amer >60 mL/min (>60) [facility] Work Phone: Comment on above: Note: Responsible Ob service observer chief: CCEV AUTOFILE ([id number]) GFR,non Amer >60 mL/min (>60) [facility] Work Phone: Comment on above: Note: Responsible Ob service observer chief: CCEV AUTOFILE ([id number]) Immature granulocytes (Bld) [#/Vol] 0 % (0) [facility] Work Phone: Comment on above: Note: Responsible Ob service observer chief: XNV AUTOFILE ([id number]) MCHC (RBC) [Mass/Vol] 31.5 g/dL (28.4-34.8) [facility] Work Phone: Comment on above: Note: Responsible Ob service observer chief: XNV AUTOFILE ([id number]) Performing Lab: see note [facility] Work Phone: Comment on above: Note: [facility] [address] [facility] [id number] Note: [facility] [address] [facility] [place] [address] Platelet mean volume (Bld) [Entitic vol] 12.0 fL (8.1-13.5) [facility] Work Phone: Comment on above: Note: Responsible Ob service observer chief: XNV AUTOFILE ([id number]) Reported Physicians See Note [facility] Work Phone: Comment on above: Note: Reported Physi cians:Ordering: Allyson Floyd AAttending: Jhoana FloydaReferring: Allyson Floyd Segmented neutrophils/100 WBC (Bld) 66 % High (36-65) [facility] Work Phone: Comment on above: Note: Responsible Ob service observer chief: XNV AUTOFILE ([id number]) Staging: NOT REPORTED [facility] Work Phone: Thyroid Stim. Horm. 4.15 mIU/L (0.30-5.00) [facility] Work Phone: Comment on above: Note: Responsible Ob service observer chief: CCEV AUTOFILE (300) Thyroxine, Free 1.21 ng/dL (0.93-1.70) [facility] Work Phone: Comment on above: Note: Responsible Ob service observer chief: CCEV AUTOFILE ([id number]) Total Insulin 46 uIU/mL High (3-19) [facility] Work Phone: Comment on above: Note: (NOTE)INTERPRE TIVE INFORMATION: Insulin, Free and TotalThis test reacts on a nearly equimolar basis with the analogsinsulin aspart, insulin glargine, and insulin lispro. Insulindetemir exhibits approximately 50 percent cross-reactivity. Testreactivity with insulin glulisine is negligible (<3 percent). Toconvert to pmol/L, multiply uIU/mL by 6.0. Reference intervalsestablished for fasting specimens.Performed by [employer],[address] [place] [id number] gkz.[place], [place] Xiong MD, Lab. DirectorResponsible Observer: LAB KIERAN ([id number]) Triglyceride,Fasting 135 mg/dL (<150) [facility] Work Phone: Comment on above: Note: Triglyceride G uidelines:<150 [id number] High>499 Very highBased on AHA Guidelines for fasting triglyceride, February 2012.Responsible Observer: CCEV AUTOFILE ([id number]) Triiodothyronine T3 150 ng/dL (80-200) [facility] Work Phone: Comment on above: Note: Responsible Ob service observer chief: CEEV AUTOFILE ([id number]) WBC Morphology NOT REPORTED [facility] Work Phone: T3on 07-06-2019 T3, Total 150 ng/dL 80 - 200 ng/dL [employer] Work Phone: T4, Freeon 07-06-2019 Thyroxine, Free 1.21 ng/dL 0.93 - 1.7 ng/dL [employer] Phone: TSH without Reflexon 020 TSH Qn 4.15 m[IU]/L [employer] Work Phone: US NON OB TRANSVAGINALon Satisfactory IUD position. RECOMMENDATIONS: No follow-up imaging is recommended. Reference: US BPRs based on Radiology 2010 Jan;256(3):943-54; CT/MR BPRs based on J Am Joanne Radiol 2013;10:675-681. [facility] [place] EXAMINATION: PELVIC ULTRASOUND 02/02/2019 TECHNIQUE: Transvaginal pelvic ultrasound was performed. No color Doppler evaluation was performed. COMPARISON: None HISTORY: ORDERING SYSTEM PROVIDED HISTORY: Encounter for intrauterine device placement FINDINGS: Measurements: Uterus: 7.0 x 4.3 x 3.6 cm Endometrial stripe: 5 mm Right Ovary: 3.8 x 3.0 x 2.6 cm Left Ovary: 2.8 x 2.2 x 1.6 cm Ultrasound Findings: Uterus: Uterus demonstrates normal myometrial echotexture. Endometrial stripe: Endometrial stripe is normal thickness. IUD is in satisfactory position within the fundal endometrium. Right Ovary: Right ovary demonstrates 2.6 cm hemorrhagic or corpus luteum cyst, no follow-up imaging recommended per guidelines below. Left Ovary: Left ovary is within normal limits. 1.1 cm dominant follicle. Free Fluid: No evidence of free fluid. [facility] Jean Marie, jose luis Incoming Radiant Results From [employer] - 02/02/2019 8:44 AM EDT EXAMINATION: PELVIC ULTRASOUND 02/02/2019 TECHNIQUE: Transvaginal pelvic ultrasound was performed. No color Doppler evaluation was performed. COMPARISON: None HISTORY: ORDERING SYSTEM PROVIDED HISTORY: Encounter for intrauterine device placement FINDINGS: Measurements: Uterus: 7.0 x 4.3 x 3.6 cm Endometrial stripe: 5 mm Right Ovary: 3.8 x 3.0 x 2.6 cm Left Ovary: 2.8 x 2.2 x 1.6 cm Ultrasound Findings: Uterus: Uterus demonstrates normal myometrial echotexture. Endometrial stripe: Endometrial stripe is normal thickness. IUD is in satisfactory position within the fundal endometrium. Right Ovary: Right ovary demonstrates 2.6 cm hemorrhagic or corpus luteum cyst, no follow-up imaging recommended per guidelines below. Left Ovary: Left ovary is within normal limits. 1.1 cm dominant follicle. Free Fluid: No evidence of free fluid. IMPRESSION: Satisfactory IUD position. RECOMMENDATIONS: No follow-up imaging is recommended. Reference: US BPRs based on Radiology 2010 Jan;256(3):943-54; CT/MR BPRs based on J Am Joanne Radiol 2013;10:675-681. [employer] JA ROBBY CNOVon 08-21-2018 CNOV Office Visit ([facility] ) ----- ESTEFANIA HERRERA ([id number]) 1995 F Date Time Provider Department 08/21/18 12:00 PM MIGUEL LOVELACE (DIANELYS) BENJA During your visit today, we recorded the following information about you: Temperature Pulse Respiration Blood pressure 97.6 degrees 99/minute 16/minute 136/81 Weight 109.8 kg Miguel Lovelace APRN.CNP 08/21/2018 12:46 PM Signed Subjective The history is provided by the patient. No educational sign language interpreter was used. Cough This is a new problem. The current episode started more than 2 days ago. The problem occurs constantly. The problem has not changed since onset.The cough is non-productive. The maximum temperature recorded prior to her arrival was 101 to 101.9 F. The fever has been present for less than 1 day. Associated symptoms include rhinorrhea, myalgias, shortness of breath and wheezing. Pertinent negatives include no chills, no ear congestion, no ear pain, no headaches and no sore throat. Treatments tried: Tylenol cold anfd flu, Mucinex, Nightquil She is not a smoker. Her past medical history does not include asthma. Review of Systems Constitutional: Negative for chills and fever. HENT: Positive for rhinorrhea. Negative for congestion, ear pain and sore throat. Respiratory: Positive for cough, shortness of breath and wheezing. Musculoskeletal: Positive for myalgias. Neurological: Negative for headaches. 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 PAST SURGICAL HISTORY Procedure Laterality Date - PAST SURGICAL HISTORY OF plastics to correct FAMILY HISTORY Problem Relation Age of Onset - Breast Cancer Maternal Grandmother - Breast Cancer Other mat Gr aunt x2 - Lipids Father - Hypertension Father - other (Lupus [Other]) Mother - GI Brother benign colon polyps age 20 Social History Socioeconomic History Marital status: Single Spouse name: Not on file Number of children: Not on file Years of education: Not on file Highest education level: Not on file Social Needs Financial resource strain: Not on file Food insecurity - worry: Not on file Food insecurity - inability: Not on file Transportation needs - medical: Not on file Transportation needs - non-medical: Not on file Occupational History Not on file Tobacco Use Smoking status: Never Smoker Smokeless tobacco: Never Used Substance and Sexual Activity Alcohol use: No Drug use: No Sexual activity: Yes Partners: Male control/protection: Pill, Condom Other Topics Concerns: Not on file Social History Narrative Not on file Current Outpatient Medications on File Prior to Visit: MONO-LINYAH 0.25-35 mg-mcg per tablet take 1 tablet by mouth once daily USE IN A CONTINUOUS FASHION FOR SCHEDULED AMENORRHEA valacyclovir 500 mg tablet Take 4 tablets by mouth every 12 hours as needed (for use at onset of oral cold sore symptoms). As needed AMPHETAMINE-DEXTROAMPHETA MINE XR 20 mg ORAL 24 hr capsule No current facility-administered medications on file prior to visit. ALLERGIES Allergen Reactions - Kenalog [Triamcinol* Other: See Comments Ate wholes into her back DTAP,TDAP,TD(1 - Tdap) due on 2015 PAP TESTING due on 2017 GC (GONORRHEA) SCREENING (18-) due on 10/20/2017 CHLAMYDIA SCREENING (18-24) due on 10/20/2017 INFLUENZA(1) due on 01/29/2018 I have confirmed and edited as necessary, the PFSH and ROS obtained by others. Objective Physical Exam Constitutional: She is oriented to person, place, and time and well-developed, well-nourished, and in no distress. Vital signs are normal. BP 136/81 Pulse 99 Temp 36.4 ?C (97.6 ?F) (Tympanic) Resp 16 Wt 109.8 kg (242 lb) SpO2 99% HENT: Head: Normocephalic. Right Ear: Tympanic membrane, external ear and ear canal normal. Left Ear: Tympanic membrane, external ear and ear canal normal. Nose: Mucosal edema present. Mouth/Throat: Uvula is midline, oropharynx is clear and moist and mucous membranes are normal. Cardiovascular: Normal rate and regular rhythm. Pulmonary/Chest: Effort normal. She has wheezes in the left middle field. + harsh cough Lymphadenopathy: She has no cervical adenopathy. Neurological: She is oriented to person, place, and time. ASSESSMENT/PLAN: 1. Acute upper respiratory infection - ICD9: 465.9, ICD10: J06.9 - Discussed viral etiology and rationale for treatment. - Symptomatic treatment with prn analgesia - Supportive care with fluids and rest - PREDNISONE 20 MG TABLET - BENZONATATE 100 MG CAPSULE - ALBUTEROL SULFATE HFA 90 MCG/ACTUATION AEROSOL INHALER -pt education along with discharge instructions given to pt -pt agreeable with plan -follow-up if symptoms don't improve in 3-5 days or get worse RUSTAM Vasquez APRN.CNP 08/21/2018 12:30 PM Signed Home going instructions for Upper Respiratory Infections An Upper Respiratory Infection (URI) is another name for the common cold. A cold is caused by a virus that can settle in yournose, throat or lungs. This causes a runny or stuffy nose and sneezing. You may also have asore throat, cough, headache,fever and muscle aches. Different cold viruses last different lengths of time, but the average time is 2- 14 days. Your body will kill off the virus by itself. Additionally, you can prime your body's immune system. This may help you get better more quickly. 1. Drink lots of fluids - at least one gallon of non-caffeinated liquids per day 2. Make sure you are eating well 3. Get plenty of rest - at least 8 hours of sleep per night for adults and more for children We do not have any medications that kill off these viruses. Antibiotics are used to treat bacterial infections; however, they are not active against viral infections. There are some things that might help you feel better, though. 1. Vaporizers, humidifiers, hot showers, and hot fluids help open respiratory and sinus passages 2. Sudafed is a safe and effective decongestant 3. [place] Nasal [place] may offer relief of nasal and head congestion 4. Micah's Vapor Rub placed on a hot towel and draped over the head may relieve congestion 5. Tylenol and Advil help control fevers and headaches 6. Salt water gargles help relieve sore throats 7. Chloraceptic spray or throat lozenges may also help relieve sore throat symptoms 8. Robitussin DM will help loosen up secretions and also provide relief from a cough In General: - Drink lots of fluids - at least one gallon of non-caffeinated liquids per day - Make sure you are eating well - Get plenty of rest - at least 8 hours of sleep per night for adults - ibuprofen 600mg every 8 hours as needed for discomfort - acetaminophen 500mg every 4-6 hours as needed for fever and discomfort. - may alternate ibuprofen and acetaminophen For nasal congestion try: -Vaporizers, Neti Pot, humidifiers, hot showers, and hot fluids help open respiratory and sinus passages. - [place] Nasal [place] may offer relief of nasal and head congestion 2-3 times per day as needed. - Sudafed is a safe and effective decongestant for people who do not have high blood pressure. Do not take Sudafed if you have ever been told that you have high blood pressure or hypertension. General dosing guidelines: Immediate release: 60 mg every 4-6 hours; Extended release: 120 mg every 12 hours or 240 mg every 24 hours; maximum: 240 mg/24 hours. For Sore Throat try: - Salt water gargles every 2-3 hours as needed for discomfort - Chloraceptic spray or throat lozenges (Cepacol) For Cough and chest congestion try one of the following: - Mucinex or Robitussin are expectorants. You may take 200-400 mg every 4 hours to a not to exceed 2,400 mg/day OR Extended release tablet: 600-1200 mg every 12 hours, not to exceed 2,400 mg/day - Delsym is a cough suppressant: Oral: 10-20 mg every 4 hours or 30 mg every 6-8 hours OR Extended release: 60 mg twice daily; maximum: 120 mg/day - If you have high blood pressure or hypertension it is safe to take Coricidin? HBP Cough AND Cold. If you smoke it is advised that you quit smoking. CONTACT YOUR DOCTOR IF: 1. You have fevers for longer than five days or a fever more than 102 degrees 2. You are still sick after 10 days 3. After several days you are getting worse rather than better 4. You develop nausea, vomiting, diarrhea, or a rash. Go to the ER if you - experience pressure or pain in your chest - experience difficulty swallowing - experience difficulty breathing Follow up with your physician in 5-7 days or before if your symptoms get worse. [facility]. I appreciate your confidence in choosing the [facility] for your medical care. Miguel Lovelace APRN.[facility] [address] [place] [id number] Referring Provider: SELF [200] Allergies As of Date: 08/21/2018 Noted Allergy Reaction KENALOG (TRIAMCINOLONE ACETONIDE) 10/11/2014 14 - Other: See Comments Comments: Ate wholes into her back Date Reviewed: 08/21/2018 Reviewed by: Karma Magaña Ma - Fully Assessed Reason for Visit: Cough [28] Cmt: x 4 days with a deep cough, chest congestion, the cough has been getting worse Primary Visit Diagnosis:Acute upper respiratory infection [J06.9] Order(s):predniSONE (DELTASONE) 20 mg tabletTake 2 tablets by mouth once daily for 4 days.Disp: 8 tabletRfl: 0 benzonatate (TESSALON PERLE) 100 mg capsuleTake 1 capsule by mouth three times daily as needed.Disp: 20 capsuleRfl: 0 albuterol HFA (PROAIR HFA) 90 mcg/actuation inhalerInhale 2 Puffs as instructed every 4 hours as needed for Wheezing/Shortness of Breath.Disp: 1 InhalerRfl: 0 Prescriptions as of 08/21/2018 Sig: PREDNISONE 20 MG TABLET Take 2 tablets by mouth once * BENZONATATE 100 MG CAPSULE Take 1 capsule by mouth three* ALBUTEROL SULFATE HFA 90 MCG/* Inhale 2 Puffs as instructed * MONO-LINYAH 0.25 MG-35 MCG TA* take 1 tablet by mouth once d* * VALACYCLOVIR 500 MG TABLET Take 4 tablets by mouth every* * DEXTROAMPHETAMINE-AMPHETA MINE* Problem List As Of Date 08/21/2018 Noted Resolved Attention deficit disorder (ADD) [F98.8] INVALID FOR* Herpes genitalis in women [A60.09] INVALID FOR* More... Herpes labialis [B00.1] Other instructions from your clinician: Home going instructions for Upper Respiratory Infections An Upper Respiratory Infection (URI) is another name for the common cold. A cold is caused by a virus that can settle in yournose, throat or lungs. This causes a runny or stuffy nose and sneezing. You may also have asore throat, cough, headache,fever and muscle aches. Different cold viruses last different lengths of time, but the average time is 2- 14 days. Your body will kill off the virus by itself. Additionally, you can prime your body's immune system. This may help you get better more quickly. 1. Drink lots of fluids - at least one gallon of non-caffeinated liquids per day 2. Make sure you are eating well 3. Get plenty of rest - at least 8 hours of sleep per night for adults and more for children We do not have any medications that kill off these viruses. Antibiotics are used to treat bacterial infections; however, they are not active against viral infections. There are some things that might help you feel better, though. 1. Vaporizers, humidifiers, hot showers, and hot fluids help open respiratory and sinus passages 2. Sudafed is a safe and effective decongestant 3. [place] Nasal [place] may offer relief of nasal and head congestion 4. Micah's Vapor Rub placed on a hot towel and draped over the head may relieve congestion 5. Tylenol and Advil help control fevers and headaches 6. Salt water gargles help relieve sore throats 7. Chloraceptic spray or throat lozenges may also help relieve sore throat symptoms 8. Robitussin DM will help loosen up secretions and also provide relief from a cough In General: - Drink lots of fluids - at least one gallon of non-caffeinated liquids per day - Make sure you are eating well - Get plenty of rest - at least 8 hours of sleep per night for adults - ibuprofen 600mg every 8 hours as needed for discomfort - acetaminophen 500mg every 4-6 hours as needed for fever and discomfort. - may alternate ibuprofen and acetaminophen For nasal congestion try: -Vaporizers, Neti Pot, humidifiers, hot showers, and hot fluids help open respiratory and sinus passages. - [place] Nasal [place] may offer relief of nasal and head congestion 2-3 times per day as needed. - Sudafed is a safe and effective decongestant for people who do not have high blood pressure. Do not take Sudafed if you have ever been told that you have high blood pressure or hypertension. General dosing guidelines: Immediate release: 60 mg every 4-6 hours; Extended release: 120 mg every 12 hours or 240 mg every 24 hours; maximum: 240 mg/24 hours. For Sore Throat try: - Salt water gargles every 2-3 hours as needed for discomfort - Chloraceptic spray or throat lozenges (Cepacol) For Cough and chest congestion try one of the following: - Mucinex or Robitussin are expectorants. You may take 200-400 mg every 4 hours to a not to exceed 2,400 mg/day OR Extended release tablet: 600-1200 mg every 12 hours, not to exceed 2,400 mg/day - Delsym is a cough suppressant: Oral: 10-20 mg every 4 hours or 30 mg every 6-8 hours OR Extended release: 60 mg twice daily; maximum: 120 mg/day - If you have high blood pressure or hypertension it is safe to take Coricidin? HBP Cough AND Cold. If you smoke it is advised that you quit smoking. CONTACT YOUR DOCTOR IF: 1. You have fevers for longer than five days or a fever more than 102 degrees 2. You are still sick after 10 days 3. After several days you are getting worse rather than better 4. You develop nausea, vomiting, diarrhea, or a rash. Go to the ER if you - experience pressure or pain in your chest - experience difficulty swallowing - experience difficulty breathing Follow up with your physician in 5-7 days or before if your symptoms get worse. Thank you for coming to [facility] today. I appreciate your confidence in choosing the [facility] for your medical care. Miguel Lovelace APRN.[facility] [place] [id number] [facility] [phone] Prescriptions ordered this encounter Disp Refills Start End PREDNISONE 20 MG TABLET 8 ta* 0 08/21/2018 08/25/2018 Route: ORAL Sig: Take 2 tablets by mouth once daily for 4 days. BENZONATATE 100 MG CAPSULE 20 c* 0 08/21/2018 Route: ORAL Sig: Take 1 capsule by mouth three times daily as needed. ALBUTEROL SULFATE HFA 90 MCG/ACTUATI* 1 In* 0 08/21/2018 Route: INHALATION Sig: Inhale 2 Puffs as instructed every 4 hours as needed for Wheezing/Shortness of Breath. Encounter Status:Closed by MIGUEL LOVELACE CNP on 08/21/18 [facility] PROGRESSon 08-21-2018 Protein mass conc HNO ID: [id number] Author: Miguel Lovelace Service: ? Author Type: Nurse Practitioner Type: Progress Notes Filed: 08/21/2018 12:46 PM Note Text: Subjective The history is provided by the patient. No educational sign language interpreter was used. Cough This is a new problem. The current episode started more than 2 days ago. The problem occurs constantly. The problem has not changed since onset.The cough is non-productive. The maximum temperature recorded prior to her arrival was 101 to 101.9 F. The fever has been present for less than 1 day. Associated symptoms include rhinorrhea, myalgias, shortness of breath and wheezing. Pertinent negatives include no chills, no ear congestion, no ear pain, no headaches and no sore throat. Treatments tried: Tylenol cold anfd flu, Mucinex, Nightquil She is not a smoker. Her past medical history does not include asthma. Review of Systems Constitutional: Negative for chills and fever. HENT: Positive for rhinorrhea. Negative for congestion, ear pain and sore throat. Respiratory: Positive for cough, shortness of breath and wheezing. Musculoskeletal: Positive for myalgias. Neurological: Negative for headaches. 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 PAST SURGICAL HISTORY Procedure Laterality Date - PAST SURGICAL HISTORY OF plastics to correct FAMILY HISTORY Problem Relation Age of Onset - Breast Cancer Maternal Grandmother - Breast Cancer Other mat Gr aunt x2 - Lipids Father - Hypertension Father - other (Lupus [Other]) Mother - GI Brother benign colon polyps age 20 Social History Socioeconomic History Marital status: Single Spouse name: Not on file Number of children: Not on file Years of education: Not on file Highest education level: Not on file Social Needs Financial resource strain: Not on file Food insecurity - worry: Not on file Food insecurity - inability: Not on file Transportation needs - medical: Not on file Transportation needs - non-medical: Not on file Occupational History Not on file Tobacco Use Smoking status: Never Smoker Smokeless tobacco: Never Used Substance and Sexual Activity Alcohol use: No Drug use: No Sexual activity: Yes Partners: Male control/protection: Pill, Condom Other Topics Concerns: Not on file Social History Narrative Not on file Current Outpatient Medications on File Prior to Visit: MONO-LINYAH 0.25-35 mg-mcg per tablet take 1 tablet by mouth once daily USE IN A CONTINUOUS FASHION FOR SCHEDULED AMENORRHEA valacyclovir 500 mg tablet Take 4 tablets by mouth every 12 hours as needed (for use at onset of oral cold sore symptoms). As needed AMPHETAMINE-DEXTROAMPHETA MINE XR 20 mg ORAL 24 hr capsule No current facility-administered medications on file prior to visit. ALLERGIES Allergen Reactions - Kenalog [Triamcinol* Other: See Comments Ate wholes into her back DTAP,TDAP,TD(1 - Tdap) due on 2015 PAP TESTING due on 2017 GC (GONORRHEA) SCREENING (18-) due on 10/20/2017 CHLAMYDIA SCREENING (18-) due on 10/20/2017 INFLUENZA(1) due on 01/29/2018 I have confirmed and edited as necessary, the PFSH and ROS obtained by others. Objective Physical Exam Constitutional: She is oriented to person, place, and time and well-developed, well-nourished, and in no distress. Vital signs are normal. BP 136/81 Pulse 99 Temp 36.4 ?C (97.6 ?F) (Tympanic) Resp 16 Wt 109.8 kg (242 lb) SpO2 99% HENT: Head: Normocephalic. Right Ear: Tympanic membrane, external ear and ear canal normal. Left Ear: Tympanic membrane, external ear and ear canal normal. Nose: Mucosal edema present. Mouth/Throat: Uvula is midline, oropharynx is clear and moist and mucous membranes are normal. Cardiovascular: Normal rate and regular rhythm. Pulmonary/Chest: Effort normal. She has wheezes in the left middle field. + harsh cough Lymphadenopathy: She has no cervical adenopathy. Neurological: She is oriented to person, place, and time. ASSESSMENT/PLAN: 1. Acute upper respiratory infection - ICD9: 465.9, ICD10: J06.9 - Discussed viral etiology and rationale for treatment. - Symptomatic treatment with prn analgesia - Supportive care with fluids and rest - PREDNISONE 20 MG TABLET - BENZONATATE 100 MG CAPSULE - ALBUTEROL SULFATE HFA 90 MCG/ACTUATION AEROSOL INHALER -pt education along with discharge instructions given to pt -pt agreeable with plan -follow-up if symptoms don't improve in 3-5 days or get worse Miguel Lovelace APRN.[employer] [facility] CNCOon 12-22-2017 CNCO Letter Text Erica Velazquez MD [facility] [address] [place] [address] Estefania Herrera December 22, 2017 Estefania Herrera [id number] [place] [address] Dear Ms. Herrera, It was noted that you did not keep your scheduled appointment on 12-22-17. It is important to contact the office in advance if you are unable to keep your appointment so that it is available for other patients. Your medical care is important to us. Please call our office to reschedule an appointment. Sincerely, Erica Velazquez MD [facility] Consult Reporton 01-05-2017 Consult Report Patient: JITENDRA HERRERA Age: 21 years Sex: Female : 1995 Associated Diagnoses: None Author: KAREN ACKERMAN DPM, RES [facility] Podiatry DepartmentReason for Consult: Active Problems (1)Crush injury of right foot Subjective: Patient found in ED bed with family present. Podiatry was asked to see the patient for concern of compartment syndrome. Patient states that [place] horse [place] the [place] the horse was spooked and stepped on her foot. The patient states that she had immediate pain and bleeding and came to the ED. She rates her pain as 6/10 before pain medication in the Ed and after medication a 4/10. Patient denies any numbness or parasthesia. Has sharp pain running across the top of her right foot. Family History No qualifying data available. Social & Psychosocial HabitsNo Data AvailableProcedure HistoryNo qualifying data available.Review of SystemsGeneral: Cooperative, alert and oriented to person, place, and time. HEENT: Normocephalic, atraumatic. Clear scleraLungs: Breathing unassisted on room air. No SOB.Cardiac: No CP.: No Gomes present GI: No N/V/DSkin: BruisingPsych: Appropriate Allergies (1) Active ReactionKenalog None Documented Vital Signs (last 24 hrs) Last Charted Minimum Maximum Temp 37.3 (JAN 04 11:18) 37.3 (JAN 04 11:18) 37.3 (JAN 04 11:18)Heart Rate 77 (JAN 04 11:54) 77 (JAN 04 11:54) H 118 (JAN 04 11:18)Resp Rate 18 (JAN 04 11:18) 18 (JAN 04 11:18) 18 (JAN 04 11:18)SBP 134 (JAN 04 11:18) 134 (JAN 04 11:18) 134 (JAN 04 11:18)DBP H 93 (JAN 04 11:18) H 93 (JAN 04 11:18) H 93 (JAN 04 11:18) Labs (Last four charted values)WBC 9.6 (JAN 04) Hgb 13.1 (JAN 04) Hct 39.0 (JAN 04) Plt 238 (JAN 04) Na 139 (JAN 04) K 3.7 (JAN 04) CO2 L 19.0 (JAN 04) Cl 108 (JAN 04) Cr 0.7 (JAN 04) BUN 13 (JAN 04) Glucose Random 86 (JAN 04) Ca 9.0 (JAN 04) INR 1.0 (JAN 04) Labs (Last four charted values)WBC 9.6 (JAN 04) Hgb 13.1 (JAN 04) Hct 39.0 (JAN 04) Plt 238 (JAN 04) Na 139 (JAN 04) K 3.7 (JAN 04) CO2 L 19.0 (JAN 04) Cl 108 (JAN 04) Cr 0.7 (JAN 04) BUN 13 (JAN 04) Glucose Random 86 (JAN 04) Ca 9.0 (JAN 04) INR 1.0 (JAN 04) Pedal Examination:Vascular: DP and PT pulses were not palpable due to edema but were found to be tri-phasic upon doppler. CFt to all digits ws <5secs. No varicosities appreciated. Moderate non-pitting edema to right forefoot. Skin temperature warm to warm from proximal to distal.Neurological: Gross sensation intact bilaterally.Dermatologica l: Moderate non-pitting edema to the foot. Ecchymosis noted to dorsal right foot. Toenail 1 i intact but traumatic embedding into lateral border with small hematoma formation. Small laceration noted allong lateral hallux nail border. Webspaces 1-4 bilaterally are clean, dry, and intact. No rash appreciated. No acute signs of infection. Musculoskeletal: Pain with palpation of right footAssessment: Traumatic Foot Injury RightContusion to Right FootSmall laceration to Right halluxTraumatic nail Plan: -Pt seen and examined.-Radiographs and CT scan reviewed. No fractures or dislocations noted.- No concern for compartment syndrome- Foot was cleansed with sterile saline and hydrogen peroxide- Right hallux was dressed with betadine and DSD- Right foot was Cem wrapped- Educated patient to RICE rest, Ice, compression, elevate- Patient would benefit from a few days or PO abx and pain medication- Patient to follow up with Dr. Reyes on in officeThank you for the consultationPatient seen and plan discussed with attending physician, Dr. Jaime Ackerman [phone] ically Signed by: KAREN ACKERMAN DPM, RES on 01/04/2017 13:59 EDTElectronically Co-Signed by: Cecelia ACKERMAN DPM, RES 01/04/2017 14:37 EDTElectronically Co-Signed by: Rene REYES DPM 01/05/2017 18:28 EDT Normal [facility] APTTon 01-04-2017 aPTT 29.9 Second(s) Normal [facility] Comment on above: Result Comment: VERI FIED by Discern Expert. Performed By: #### 1 [id number], [id number], [id number], 113030, 482448, 709780 ####[facility] [id number] [place] [id number] Medical Director: David Doe MD aPTT 25.9 Second(s) Normal 25.0-36.0 [facility] Comment on above: Performed By: #### 1 63714, [id number], 314111, 562446, 989155, 488487 ####[facility] [address] [place] [id number] Medical Director: David Doe MD AUTO DIFFon 01-04-2017 Basophils Auto #/vol (Bld) 0.04 x1000 Normal 0.00-0.20 [facility] Comment on above: Performed By: #### 1 51523, [id number], 966494, 537087, 727492, 280786 ####[facility] [address] [place] [address] Medical Director: David Doe MD Basos % 0.5 % Normal [facility] Comment on above: Performed By: #### 1 18716, [id number], 505778, 049286, 033671, 586140 ####[facility] [address] [place] [address] Medical Director: David Doe MD Eos Count 0.10 x1000 Normal 0.00-0.50 [facility] Comment on above: Performed By: #### 1 14770, [id number], 818911, 347624, 720157, 391467 ####[facility] [address] [place] [address] Medical Director: David Doe MD Eosinophils/100 leukocytes 1.0 % Normal [facility] Comment on above: Performed By: #### 1 89144, 6686853, 640271, 072225, 597578, 835470 ####[facility] [address] [place] [address] Medical Director: David Doe MD Lymphocytes 2.84 x1000 Normal 1.20-4.80 [facility] Comment on above: Performed By: #### 1 71801, 9262910, 818797, 943898, 385834, 954726 ####[facility] [address] [place] [address] Medical Director: David Doe MD Lymphocytes/100 leukocytes 29.4 % Normal [facility] Comment on above: Performed By: #### 1 81789, 7864427, 496771, 134984, 711802, 395606 ####[facility] [address] [place] [address] Medical Director: David Doe MD [place] Count 0.68 x1000 Normal 0.10-1.00 [facility] Comment on above: Performed By: #### 1 81816, 0002182, 150654, 343543, 548844, 905391 ####[facility] [address] [place] [address] Medical Director: David Doe MD Monocytes/100 leukocytes 7.0 % Normal [facility] Comment on above: Performed By: #### 1 49064, [id number], 729195, 818971, 734137, 210320 ####[facility] [address] [place] [address] Medical Director: David Doe MD Neutrophils 5.98 x1000 Normal 1.40-8.80 [facility] Comment on above: Performed By: #### 1 20755, 0378758, 167799, 175776, 118666, 884172 ####[facility] [address] [place] [address] Medical Director: David Doe MD Neutrophils/100 WBC Auto (Bld) 62.0 % Normal [facility] Comment on above: Performed By: #### 1 98413, 9921521, 463417, 910210, 803313, 759648 ####[facility] [address] [place] [address] Medical Director: Dvaid Doe MD COMPMETAon 01-04-2017 Globulin 4.0 g/dL Normal [facility] Comment on above: Performed By: #### 1 74197, [id number], 140188, 107114, 044671, 040030 ####[facility] [address] [place] [address] Medical Director: David Doe MD Osmolality 277 mOsm/kg Normal 275-295 [facility] Comment on above: Performed By: #### 1 39401, 9243896, 904737, 499304, 006346, 958962 ####[facility] R[address]qj009[address] [place], [place] [id number]) [phone] Director: David Doe MD eGFR (non-black) mL/min/{1.73_m2} Normal So [facility] Comment on above: Result Comment: Afri can Norwegian GFR Calc Performed By: #### 1 95506, 2765393, 169614, 612767, 069018, 684280 ####[facility] Gygtqsng810[address] [place], [place] [id number]) [phone] Director: David Doe MD Result Comment: Non GFR CalcMedical judgement is necessary to interpret GFR. The calculated GFR may not accurately reflect renal status in patients >70 years, women, acutely ill hospitalized patients and patients with acute renal failure or known renal disease.Note:Creatinine clearance (not GFR) should be used for drug dosing. Albumin/Globulin Ratio 0.8 {ratio} Normal [facility] Comment on above: Performed By: #### 1 92989, 2817862, 457028, 458720, 375873, 361297 ####[facility] [address] [place] [address] Medical Director: David Doe MD BUN/Creatinine Ratio 17.6 mg/mg Normal [facility] Comment on above: Performed By: #### 1 38949, 1770180, 460067, 536456, 407059, 963391 ####[facility] [address]ck[address] [place] [address] Medical Director: David Doe MD Alk Phos 61 unit/L Normal 45-117 [facility] Comment on above: Performed By: #### 1 33738, 9251428, 619763, 337849, 861447, 441886 ####[facility] [address]wgx73[address] [place] [address] Medical Director: David Doe MD Bilirubin (total) 0.41 mg/dL Normal 0.20-1.00 [facility] Comment on above: Performed By: #### 1 18326, 0385992, 815213, 220147, 113567, 807283 ####[facility] Urw[address]rut506[address] [place], [place] [id number]) [phone] Director: David Doe MD Protein 7.4 g/dL Normal 6.0-8.5 [facility] Comment on above: Performed By: #### 1 92547, 5200261, 797657, 710777, 771030, 797587 ####[facility] Qu[address]ifpy86[address] [place], [place] [address]) [phone] Director: David Doe MD GPT 16 unit/L Normal 13-56 [facility] Comment on above: Result Comment: Mariposa puncture should occur prior to sulfasalazine and/or sulfapyridine administration due to the potential for falsely depressed results.Baseline assay values before administration of sulfasalazine and sulfapyridine therapy would not be affected. Performed By: #### 1 53778, 7857550, 406097, 115686, 796909, 457782 ####[facility] [address] [place] [address] Medical Director: David Doe MD Creatinine 0.7 mg/dL Normal 0.6-1.0 [facility] Comment on above: Performed By: #### 1 05259, 6132588, 866160, 030169, 810755, 018868 ####[facility] [address] [place] [address] Medical Director: David Doe MD GOT 14 unit/L Low 15-37 [facility] Comment on above: Result Comment: Mariposa puncture should occur prior to sulfasalazine and/or sulfapyridine administration due to the potential for falsely depressed results.Baseline assay values before administration of sulfasalazine and sulfapyridine therapy would not be affected. Performed By: #### 1 15288, 2597266, 010551, 021189, 586497, 236146 ####[facility] [address] [place] [address] Medical Director: David Doe MD Urea nitrogen 13 mg/dL Normal 10-20 [facility] Comment on above: Performed By: #### 1 88391, 3935685, 661884, 601535, 116234, 963847 ####[facility] [address] [place] [address] Medical Director: David Doe MD Glucose mass conc 86 mg/dL Normal 72-100 [facility] Comment on above: Result Comment: Mariposa puncture should occur prior to sulfasalazine administration due to the potential for falsely depressed results. Venipuncture should occur prior to sulfapyridine administration due to the potential falsely elevated results.Baseline assay values before administration of sulfasalazine and sulfapyridine therapy would not be affected. Performed By: #### 1 17286, 7112614, 288321, 517633, 369453, 317698 ####[facility] [address] [place] [address] Medical Director: David Doe MD Albumin 3.4 g/dL Normal 3.4-5.0 [facility] Comment on above: Performed By: #### 1 30655, 9234807, 215817, 976483, 960079, 144016 ####[facility] [address] [place] [address] Medical Director: David Doe MD CO2 19.0 mmol/L Low 21.0-32.0 [facility] Comment on above: Performed By: #### 1 94880, 4667739, 108186, 469451, 836404, 148416 ####[facility] [address]rag[address] [place] [address] Medical Director: David Doe MD Calcium 9.0 mg/dL Normal 8.5-10.5 [facility] Comment on above: Performed By: #### 1 66207, 8727018, 023623, 214239, 436606, 918869 ####[facility] [address] [place] [address] Medical Director: David Doe MD Potassium molar conc 3.7 mmol/L Normal 3.5-5.1 [facility] Comment on above: Performed By: #### 1 79560, 3161635, 008856, 759975, 807964, 748696 ####[facility] [address]fe[address] [place] [address] Medical Director: David Doe MD Sodium 139 mmol/L Normal 135-145 [facility] Comment on above: Performed By: #### 1 64220, 0398379, 637312, 126961, 972038, 258924 ####[facility] [address] [place] [address] Medical Director: David Doe MD Chloride 108 mmol/L Normal 100-109 [facility] Comment on above: Performed By: #### 1 85233, 5745271, 248798, 154032, 552864, 118493 ####[facility] [address] [place] [address] Medical Director: David Doe MD CT LOWER EXTREMITY WO CONTRA ST RIGHTon 01-04-2017 CT LOWER EXTREMITY WO CONTRAST RIGHT CT scan of the right foot without contrast, with coronal and sagittalreformatted images.Clinical information: Right foot trauma, stepped on by horse;swelling, pain.There is no apparent fracture or dislocation involving the right foot.There are no degenerative changes. The ankle mortise is maintained.There is soft tissue swelling and induration involving the dorsum ofthe foot.IMPRESSION: No apparent fracture or dislocation involving the rightfoot.Technologist: WCLDictated By: Damir SMITH MD By: Damir SMITH MD Out: 01/04/17 12:59:57 Normal [facility] ED Physician Reporton 2016 ED Physician Report Patient: JITENDRA HERRERA Age: 21 years Sex: Female : 1995 Associated Diagnoses: Crush injury of right foot Author: ENRIQUE MCELROY PA-C Basic Information Time seen: Date & time 01/04/2017 11:25:00. History source: Patient. History of Present Illness The patient presents with right, foot injury. The onset was just prior to arrival. The course/duration of symptoms is constant. Type of injury: A horse stepped on her foot. Location: Right foot. The character of symptoms is pain, swelling and bleeding. The degree at present is severe. The exacerbating factor is movement. The relieving factor is none. Risk factors consist of none. Prior episodes: none. Therapy today: none. Patient presents to the emergency department complaining of RIGHT foot pain. Patient states her horse stepped on the foot causing extreme pain and swelling. Patient states no other injury. Patient states last menstrual period is now and denies any possibility of .. Review of Systems Constitutional symptoms: Negative except as documented in HPI. Skin symptoms: Negative except as documented in HPI. Eye symptoms: Negative except as documented in HPI. ENMT symptoms: Negative except as documented in HPI. Respiratory symptoms: Negative except as documented in HPI. Cardiovascular symptoms: Negative except as documented in HPI. Gastrointestinal symptoms: Negative except as documented in HPI. Genitourinary symptoms: Negative except as documented in HPI. Musculoskeletal symptoms: RIGHT foot pain and swelling. Neurologic symptoms Negative except as documented in HPI. Additional review of systems information: All systems reviewed as documented in chart. Health Status Allergies: Allergic Reactions (Selected)Severity Not DocumentedKenalog- No reactions were documented.. Medications: Per nurse's notes. Past Medical/ Family/ Social History Medical history: anxiety. Social history: Tobacco use: Denies. Physical Examination Vital Signs Vital Signs 01/04/2017 11:18 EDT Temperature Oral 37.3 degC NORMAL Peripheral Pulse Rate 118 bpm HI Respiratory Rate 18 br/min NORMAL Systolic Blood Pressure 134 mmHg NORMAL Diastolic Blood Pressure 93 mmHg HI SpO2 100 % NORMAL Oxygen Therapy Room air Height/Length Dosing 172.2 cm Weight Dosing 95.5 kg Body Mass Index Dosing 32 . General: Alert, moderate distress. Skin: Warm, dry, pink. Head: Normocephalic. Neck: Supple, trachea midline, no tenderness. Eye: Normal conjunctiva. Ears, nose, mouth and throat: Oral mucosa moist. Cardiovascular: Regular rate and rhythm. Respiratory: Lungs are clear to auscultation, respirations are non-labored, breath sounds are equal. Chest wall: No tenderness. Back: Nontender. Musculoskeletal: No deformity, Ankle/foot: Right, dorsal, foot, tenderness, swelling. Gastrointestinal: Soft, Nontender, Non distended. Genitourinary Psychiatric: Cooperative, appropriate mood & affect. Neurological Alert and oriented to person, place, time, and situation, No focal neurological deficit observed. Medical Decision Making * Final Report *Reason For ExamINJURYReportEXAM: XR FOOT RIGHT COMPLETE 01/04/2017 11:24 AM EDTHistory: INJURY, SWELLING Comparison: None.AP, lateral, and oblique projections were obtained. An acute orhealing fracture or other bony abnormality is not seen. The jointsare normal. The joint surfaces are smooth. There is no radiopaqueforeign body. Soft tissue swelling is present at the forefoot.Summary: Soft tissue swelling. No acute fracture or joint dislocation.Signature LineTechnologist: TANA ESPINOZADictated By: HERB AGUILAR MDSigned By: HERB AGUILAR MD * Final Report *Reason For ExamPAINReportCT scan of the right foot without contrast, with coronal and sagittalreformatted images.Clinical information: Right foot trauma, stepped on by horse;swelling, pain.There is no apparent fracture or dislocation involving the right foot.There are no degenerative changes. The ankle mortise is maintained.There is soft tissue swelling and induration involving the dorsum ofthe foot.IMPRESSION: No apparent fracture or dislocation involving the rightfoot.Signature LineTechnologist: SANDRALDictated By: JEREMIAS SMITH MDSigned By: JEREMIAS SMITH MD Patient was seen by podiatry, Dr. Reyes and residents, who reviewed the x-rays and CAT scans and the patient and have cleared her to go home. Patient is to elevate her foot and return to the emergency department if swelling increases any numbness or tingling ensues or any color change to the toes. Patient will be discharged home with prescriptions for Percocet and doxycycline and will follow up with podiatry in 3 days. Patient is further advised to return to the emergency department if symptoms worsen or if any other problems develop. Impression and Plan Diagnosis Crush injury of right foot ([id number] S97.81XA, Working, Medical) Plan Condition: Stable. Disposition: ED Discharge to Home was placed.(01/04/2017 13:39:31 EDT, Constant Order). Prescriptions: Launch prescriptions Pharmacy:Percocet 5/325 ([id number]) oral tablet (Prescribe): 1 tabs, ORAL, [id number], PRN: for pain, 24 tabs, 0 Refill(s)doxycycline hyclate 100 mg oral tablet (Prescribe): 100 mg = 1 tabs, ORAL, BID, for 10 days, 20 tabs, 0 Refill(s). Patient was given the following educational materials: Cryotherapy, Eebt-rz-Krbi, Compartment Syndrome of the Foot, Compartment Syndrome of the Foot, Cryotherapy, Rnvk-iu-Ekxw. Follow up with: [facility] Within 3 to 5 days; PENG REYES In 3 days 01/07/2017 Podiatry. Counseled: Patient, Regarding diagnosis, Regarding diagnostic results, Regarding treatment plan, Regarding prescription, Patient indicated understanding of instructions. Addendum I personally evaluated and examined the patient in conjunction with the MLP and agree with the assessment, treatment plan and disposition of the patient as recorded by the MLP.Electronically Signed by: Hay MCELROY PA-C 01/04/2017 13:41Electronically Co-Signed by: Selene GALVAN MD 01/04/2017 14:19 Normal [facility] ED Progress Noteon 7 ED Progress Note pt to intake 5 with crush inj rt footpt was getting her horse out of trailer and it stepped on her rt foot; pt was wearing moccasin type shoestop of midfoot severely bruised and swollen, open areas to big toe and 2nd toeelevated on pillows, ice to ankle, iv placed, labs drawn/sent, medicatedsig other at bedsidepodiatry coming to see [id number] ASSUMED CARE OF PT, REPORT RECEIVED FROM BAUTISTA MACIAS.1354 PT MEDICATED PER ORDER, JT, P.A. AT BEDSIDE. WILL CONTINUE TO MONITOR.1458 NAD noted. Saline lock removed before discharge, tip was intact. Pt's toe bandage changed. A small amount of blood was seeping through original bandage. Pt's nausea gone and pain much decreased. Dc instructions and scripts given to pt. She verbalized understanding. All questions answered at dc. Pt fitted for the crutches and gave good return demonstration of use. Cast shoe applied. Per pt, podiatry resident said she would get a boot or air boot. We only have cast shoes in the ED. Pt dc'd via wheelchair to the car. Mother driving. Pt felt a little dizzy after trying crutches. Normal [facility] HCGon 01-04-2017 HCG, Qual <1.0 Normal [facility] Comment on above: Result Comment: 0 - 3 Negative3 - 50 Inconclusive>50 Positive Performed By: #### 1 28990, 1873734, 269134, 016703, 390594, 106617 ####[facility] Q[address]rd[address] [place], [place] [id number]) [phone] Director: David Doe MD HEMOon 01-04-2017 DIFF? No Normal [facility] Comment on above: Performed By: #### 1 54019, 8451899, 163454, 783853, 347587, 275107 ####[facility] Y[address] [place], [place] [id number]) [phone] Director: David Doe MD Erythrocyte distribution width Auto Ratio (RBC) 13.3 % Normal 11.5-14.5 [facility] Comment on above: Performed By: #### 1 35275, 1792458, 012421, 594107, 492112, 797154 ####[facility] [address]sntjug213[address] [place] [address] Medical Director: David Doe MD Erythrocytes (RBC) 4.80 x10 Normal 4.20-5.40 [facility] Comment on above: Result Comment: Note : RBC morphology is normal unless otherwise stated. Evaluation performed only if differential is requested. Performed By: #### 1 25786, 9584301, 384839, 548844, 606374, 068945 ####[facility] [address]64[address] [place] [address] Medical Director: David Doe MD Hematocrit (HCT) 39.0 % Normal 36.0-46.0 [facility] Comment on above: Performed By: #### 1 65383, 4811777, 025830, 028801, 660534, 363823 ####[facility] [address]qz[address] [place], [place] [address]) [phone] Director: David Doe MD Hemoglobin mass conc (Bld) 13.1 g/dL Normal 12.0-16.0 [facility] Comment on above: Performed By: #### 1 71243, 9290444, 592352, 562680, 289449, 590488 ####[facility] [address]due[address] [place], [place] [address]) [phone] Director: David Doe MD MCH 27.3 pg Normal 27.0-34.0 [facility] Comment on above: Performed By: #### 1 84026, 4297704, 958219, 756842, 410784, 647023 ####[facility] R[address]jtjjvk447[address] [place], [place] [address]) [phone] Director: David Doe MD MCHC mass conc (RBC) 33.6 g/dL Normal 32.0-37.0 [facility] Comment on above: Performed By: #### 1 32758, 4700709, 391370, 943496, 417688, 113124 ####[facility] [address]xjp23[address] [place], [place] [address]) [phone] Director: David Doe MD MCV 81.3 fL Normal 80.0-100.0 [facility] Comment on above: Performed By: #### 1 17709, 1982110, 168631, 799029, 101833, 950331 ####[facility] [address]ph[address] [place] [address] Medical Director: David Doe MD Nucleated RBC% 0 /100WC Normal [facility] Comment on above: Performed By: #### 1 70578, 8079887, 919745, 049021, 455270, 693583 ####[facility] [address] [place] [address] Medical Director: David Doe MD Platelet mean volume (PMV) 9.4 fL Normal 7.4-10.4 [facility] Comment on above: Performed By: #### 1 17602, 1654122, 686186, 738910, 443930, 033544 ####[facility] [address]xsrsjs[address] [place] [address] Medical Director: David Doe MD Platelets 238 x1000 Normal 150-450 [facility] Comment on above: Performed By: #### 1 29459, 7421512, 996852, 688290, 561838, 229929 ####[facility] [address]wi[address] [place] [address] Medical Director: David Doe MD WBC (Leukocytes) 9.6 10*3/uL Normal [facility] Comment on above: Performed By: #### 1 80979, 1687463, 373179, 200444, 835889, 310329 ####[facility] [address]zt[address] [place] [address] Medical Director: David Doe MD WBC (Leukocytes) 9.6 x10 Normal 4.5-11.0 [facility] Comment on above: Performed By: #### 1 53806, 0277120, 260742, 026459, 869917, 642552 ####[facility] [address] [place] [address] Medical Director: David Doe MD PT INRon 01-04-2017 Protime Median 11.1 Second(s) Normal [facility] Comment on above: Result Comment: VERI FIED by Discern Expert. Performed By: #### 1 89365, 1193312, 650371, 985995, 385697, 193844 ####[facility] [address] [place] [address] Medical Director: David Doe MD INR Coag RelTime (PPP) 1.0 {INR} Normal So [facility] Comment on above: Result Comment: Norm al reference range for INR on patients not on anticoagulant therapy: 0.9-1.1. General therapeutic range for patients on anticoagulant therapy: 2.0-3.5. Performed By: #### 1 69202, 0985254, 721992, 354926, 909854, 867591 ####[facility] [address] [place] [id number] [facility] Director: David Doe MD Protime Patient 11.3 Second(s) Normal 9.8-12.7 [facility] Comment on above: Performed By: #### 1 89842, 6039220, 711656, 566572, 597565, 931102 ####[facility] [address] [place] [id number] Medical Director: David Doe MD XR FOOT RIGHT COMPLETEon XR FOOT RIGHT COMPLETE EXAM: XR FOOT RIG HT COMPLETE 01/04/2017 11:24 AM EDTHistory: INJURY, SWELLING Comparison: None.AP, lateral, and oblique projections were obtained. An acute orhealing fracture or other bony abnormality is not seen. The jointsare normal. The joint surfaces are smooth. There is no radiopaqueforeign body. Soft tissue swelling is present at the forefoot.Summary: Soft tissue swelling. No acute fracture or joint dislocation.Technologist: TANA ESPINOZADictated By: Milady AGUILAR MDed By: Jose Alberto AGUILAR MD Out: 01/04/17 11:49:07 Normal [facility] Vital Signs Date Time Vital Sign Value Performing Clinician Facility 12-04-2021 10:03-0400 Body height 173.35 cm [facility] 12-04-2021 10:03-0400 Body mass index (BMI) [Ratio] 35.22 kg/m2 [facility] 12-04-2021 10:03-0400 Body surface area Derived from formula 2.26 m2 [facility] 12-04-2021 10:03-0400 Body weight 105.83 kg [facility] 12-04-2021 10:03-0400 Diastolic blood pressure 68 mm[Hg] [facility] 12-04-2021 10:03-0400 Heart rate 68 /min [facility] 12-04-2021 10:03-0400 Systolic blood pressure 116 mm[Hg] [facility] 10-15-2020 01:15-0400 Diastolic blood pressure 71 mm[Hg] Donny Andes DO Work Phone: [employer] Phone: 10-15-2020 01:15-0400 SaO2% (BldA) [Mass fraction] 94 % Donny Andes DO Work Phone: [employer] Work Phone: 10-15-2020 01:15-0400 Systolic blood pressure 117 mm[Hg] Donny Andes DO Work Phone: [employer] Phone: 10-14-2020 23:18-0400 Body temperature 97.59 [degF] Donny Andes DO Work Phone: [employer] Work Phone: 10-14-2020 23:18-0400 Heart rate 98 /min Donny Andes DO Work Phone: [facility] [employer] Work Phone: 10-14-2020 23:18-0400 Respiratory rate 18 /min Donny Andes DO Work Phone: [facility] [employer] Work Phone: 09-23-2020 08:31-0400 Body height 172.72 cm Miguel Holley CNP Work Phone: [employer] [facility] Work Phone: 09-23-2020 08:31-0400 Body mass index (BMI) [Ratio] 40.9 kg/m2 Miguel Holley CNP Work Phone: [employer] [facility] Work Phone: 09-23-2020 08:31-0400 Body surface area Derived from formula 2.32 m2 Miguel Holley CNP Work Phone: [employer] [facility] Work Phone: 09-23-2020 08:31-0400 Body temperature 964 [degF] Miguel Holley CNP Work Phone: [employer] [facility] Work Phone: 09-23-2020 08:31-0400 Body weight 122.02 kg Miguel Holley CNP Work Phone: [employer] [facility] Work Phone: 09-23-2020 08:31-0400 Diastolic blood pressure 80 mm[Hg] Miguel Holley CNP Work Phone: [facility] Work Phone: 09-23-2020 08:31-0400 Heart rate 80 /min Miguel Holley CNP Work Phone: [employer] [facility] Work Phone: 09-23-2020 08:31-0400 Respiratory rate 18 /min Miguel Holley CNP Work Phone: [facility] Work Phone: 09-23-2020 08:31-0400 SaO2% (BldA) [Mass fraction] 98 % Miguel Holley CNP Work Phone: [facility] Work Phone: 09-23-2020 08:31-0400 Systolic blood pressure 126 mm[Hg] Miguel Holley CNP Work Phone: [facility] Work Phone: 04-08-2020 16:25-0500 Respiratory Rate 16 /min [facility] 04-08-2020 16:20-0500 Pulse (Heart Rate) 86 /min [facility] 04-08-2020 16:20-0500 Pulse Oximetry 98 % [facility] [place] 04-08-2020 16:00-0500 BP Diastolic 66 mm[Hg] [facility] [place] 04-08-2020 16:00-0500 BP Systolic 121 mm[Hg] [facility] [place] 04-08-2020 13:23-0500 Body Temperature 98.4 [degF] [facility] 03-19-2020 19:09-0400 BMI (Body Mass Index) 37.3 kg/m2 [facility] Work Phone: 03-19-2020 19:09-0400 Body weight 111.13 kg [facility] Work Phone: 03-19-2020 19:09-0400 BSA (Body Surface Area) 2.23 m2 [facility] Work Phone: 03-19-2020 19:09-0400 Height 172.72 cm [facility] Work Phone: 03-05-2020 08:30-0400 BMI (Body Mass Index) 37.3 kg/m2 [facility] Work Phone: 03-05-2020 08:30-0400 Body Temperature 95.4 [degF] [facility] Work Phone: 03-05-2020 08:30-0400 Body weight 111.13 kg [facility] Work Phone: 03-05-2020 08:30-0400 BP Diastolic 80 mm[Hg] [facility] Work Phone: 03-05-2020 08:30-0400 BP Systolic 120 mm[Hg] [facility] Work Phone: 03-05-2020 08:30-0400 BSA (Body Surface Area) 2.23 m2 [facility] Work Phone: 03-05-2020 08:30-0400 Height 172.72 cm [facility] Work Phone: 03-05-2020 08:30-0400 Pulse (Heart Rate) 74 /min [facility] Work Phone: 03-05-2020 08:30-0400 Pulse Oximetry 99 % [facility] Work Phone: 03-05-2020 08:30-0400 Respiratory Rate 18 /min [facility] Work Phone: 03-05-2020 08:30-0400 SaO2% (BldA) [Mass fraction] 99 % [facility] Work Phone: [facility] Work Phone: 12-05-2019 08:37-0400 BMI (Body Mass Index) 35.4 kg/m2 [facility] Work Phone: 12-05-2019 08:37-0400 Body Temperature 98.8 [degF] [facility] Work Phone: 12-05-2019 08:37-0400 Body weight 105.69 kg [facility] Work Phone: 12-05-2019 08:37-0400 BP Diastolic 72 mm[Hg] [facility] Work Phone: 12-05-2019 08:37-0400 BP Systolic 116 mm[Hg] [facility] Work Phone: 12-05-2019 08:37-0400 BSA (Body Surface Area) 2.18 m2 [facility] Work Phone: 12-05-2019 08:37-0400 Flow Rate 0 L/min [facility] Work Phone: 12-05-2019 08:37-0400 Height 172.72 cm [facility] Work Phone: 12-05-2019 08:37-0400 Inhaled Oxygen Concentration 21 % [facility] Work Phone: 12-05-2019 08:37-0400 Pulse (Heart Rate) 81 /min [facility] Work Phone: 12-05-2019 08:37-0400 Pulse Oximetry 98 % [facility] Work Phone: 12-05-2019 08:37-0400 Respiratory Rate 18 /min [facility] Work Phone: 12-05-2019 08:37-0400 SaO2% (BldA) [Mass fraction] 98 % [facility] Work Phone: [facility] Work Phone: 11-06-2019 09:02-0400 BMI (Body Mass Index) 36.2 kg/m2 [facility] Work Phone: 11-06-2019 09:02-0400 Body Temperature 95.8 [degF] [facility] Work Phone: 11-06-2019 09:02-0400 Body weight 107.96 kg [facility] Work Phone: 11-06-2019 09:02-0400 BP Diastolic 80 mm[Hg] [facility] Work Phone: 11-06-2019 09:02-0400 BP Systolic 110 mm[Hg] [facility] Work Phone: 11-06-2019 09:02-0400 BSA (Body Surface Area) 2.2 m2 [facility] Work Phone: 11-06-2019 09:02-0400 Height 172.72 cm [facility] Work Phone: 11-06-2019 09:02-0400 Pulse (Heart Rate) 94 /min [facility] Work Phone: 11-06-2019 09:02-0400 Pulse Oximetry 98 % [facility] Work Phone: 11-06-2019 09:02-0400 Respiratory Rate 18 /min [facility] Work Phone: 11-06-2019 09:02-0400 SaO2% (BldA) [Mass fraction] 98 % [facility] Work Phone: [facility] Work Phone: 10-12-2019 09:53-0400 BMI (Body Mass Index) 38.2 kg/m2 [facility] Work Phone: 10-12-2019 09:53-0400 Body Temperature 98.7 [degF] [facility] Work Phone: 10-12-2019 09:53-0400 Body weight 113.85 kg [facility] Work Phone: 10-12-2019 09:53-0400 BP Diastolic 82 mm[Hg] [facility] Work Phone: 10-12-2019 09:53-0400 BP Systolic 122 mm[Hg] [facility] Work Phone: 10-12-2019 09:53-0400 BSA (Body Surface Area) 2.25 m2 [facility] Work Phone: 10-12-2019 09:53-0400 Flow Rate 0 L/min [facility] Work Phone: 10-12-2019 09:53-0400 Height 172.72 cm [facility] Work Phone: 10-12-2019 09:53-0400 Inhaled Oxygen Concentration 21 % [facility] Work Phone: 10-12-2019 09:53-0400 Pulse (Heart Rate) 97 /min [facility] Work Phone: 10-12-2019 09:53-0400 Pulse Oximetry 98 % [facility] Work Phone: 10-12-2019 09:53-0400 Respiratory Rate 18 /min [facility] Work Phone: 10-12-2019 09:53-0400 SaO2% (BldA) [Mass fraction] 98 % [facility] Work Phone: [facility] Work Phone: 09-14-2019 08:35-0400 BMI (Body Mass Index) 37.7 kg/m2 [facility] Work Phone: 09-14-2019 08:35-0400 Body Temperature 96.6 [degF] [facility] Work Phone: 09-14-2019 08:35-0400 Body weight 112.49 kg [facility] Work Phone: 09-14-2019 08:35-0400 BP Diastolic 80 mm[Hg] [facility] Work Phone: 09-14-2019 08:35-0400 BP Systolic 130 mm[Hg] [facility] Work Phone: 09-14-2019 08:35-0400 BSA (Body Surface Area) 2.24 m2 [facility] Work Phone: 09-14-2019 08:35-0400 Height 172.72 cm [facility] Work Phone: 09-14-2019 08:35-0400 Pulse (Heart Rate) 81 /min [facility] Work Phone: 09-14-2019 08:35-0400 Pulse Oximetry 98 % [facility] Work Phone: 09-14-2019 08:35-0400 Respiratory Rate 18 /min [facility] Work Phone: 09-05-2019 10:26-0400 BMI (Body Mass Index) 37.3 kg/m2 [facility] Work Phone: 09-05-2019 10:26-0400 Body weight 111.13 kg [facility] Work Phone: 09-05-2019 10:26-0400 BSA (Body Surface Area) 2.23 m2 [facility] Work Phone: 09-05-2019 10:26-0400 Height 172.72 cm [facility] Work Phone: 08-17-2019 08:29-0400 BMI (Body Mass Index) 37.3 kg/m2 [facility] Work Phone: 08-17-2019 08:29-0400 Body Temperature 97.9 [degF] [facility] Work Phone: 08-17-2019 08:29-0400 Body weight 111.13 kg [facility] Work Phone: 08-17-2019 08:29-0400 BP Diastolic 80 mm[Hg] [facility] Work Phone: 08-17-2019 08:29-0400 BP Systolic 120 mm[Hg] [facility] Work Phone: 08-17-2019 08:29-0400 BSA (Body Surface Area) 2.23 m2 [facility] Work Phone: 08-17-2019 08:29-0400 Height 172.72 cm [facility] Work Phone: 08-17-2019 08:29-0400 Pulse (Heart Rate) 68 /min [facility] Work Phone: 08-17-2019 08:29-0400 Pulse Oximetry 98 % [facility] Work Phone: 08-17-2019 08:29-0400 Respiratory Rate 18 /min [facility] Work Phone: 07-20-2019 08:36-0500 BMI (Body Mass Index) 39 kg/m2 [facility] Work Phone: 07-20-2019 08:36-0500 Body Temperature 98.4 [degF] [facility] Work Phone: 07-20-2019 08:36-0500 Body weight 116.39 kg [facility] Work Phone: 07-20-2019 08:36-0500 BP Diastolic 80 mm[Hg] [facility] Work Phone: 07-20-2019 08:36-0500 BP Systolic 120 mm[Hg] [facility] Work Phone: 07-20-2019 08:36-0500 BSA (Body Surface Area) 2.27 m2 [facility] Work Phone: 07-20-2019 08:36-0500 Height 172.72 cm [facility] Work Phone: 07-20-2019 08:36-0500 Pulse (Heart Rate) 87 /min [facility] Work Phone: 07-20-2019 08:36-0500 Pulse Oximetry 97 % [facility] Work Phone: 07-20-2019 08:36-0500 Respiratory Rate 18 /min [facility] Work Phone: 07-06-2019 08:43-0500 BMI (Body Mass Index) 39.7 kg/m2 [facility] Work Phone: 07-06-2019 08:43-0500 Body Temperature 97.3 [degF] [facility] Work Phone: 07-06-2019 08:43-0500 Body weight 118.39 kg [facility] Work Phone: 07-06-2019 08:43-0500 BP Diastolic 82 mm[Hg] [facility] Work Phone: 07-06-2019 08:43-0500 BP Systolic 122 mm[Hg] [facility] Work Phone: 07-06-2019 08:43-0500 BSA (Body Surface Area) 2.29 m2 [facility] Work Phone: 07-06-2019 08:43-0500 Height 172.72 cm [facility] Work Phone: 07-06-2019 08:43-0500 Pulse (Heart Rate) 78 /min [facility] Work Phone: 07-06-2019 08:43-0500 Pulse Oximetry 98 % [facility] Work Phone: 07-06-2019 08:43-0500 Respiratory Rate 18 /min [facility] Work Phone: Encounters Encounter Date Encounter Type Care Provider Facility Start: 06-11-2023 End: 06-11-2023 ambulatory BRUCE GUEVARAO Not Available Start: 05-12-2023 End: 05-13-2023 ambulatory MIGUEL St[facility] Start: 05-07-2023 End: 05-08-2023 ambulatory MIGUEL Starks [facility] Start: 05-05-2023 End: 05-06-2023 ambulatory MIGUEL Starks [facility] Start: 04-14-2023 End: 04-14-2023 ambulatory BRUCEMaame GUEVARAO Not Available Start: 03-24-2023 End: 03-27-2023 [facility] Start: 01-20-2023 End: 01-20-2023 ambulatory MIGUEL Starks [facility] Start: 01-01-2023 End: 01-02-2023 ambulatory MIGUEL Starks [facility] Start: 01-01-2023 Encounter for gynecological examination (general) (routine) without abnormal findings MIGUEL LEYDI [facility] Start: 01-01-2023 End: 01-01-2023 Patient encounter procedure Miguel Stewart CNP Work Phone: [facility] Start: 01-01-2023 End: 01-01-2023 Subsequent hospital visit by physician Miguel Stewart CNP Work Phone: [email or web address] Comment on above: Women's annual routi ne gynecological examination Start: 12-16-2021 End: 12-16-2021 Subsequent hospital visit by physician Miguel Stewart CNP Work Phone: [facility] Start: 12-04-2021 Split Srvc Shona Jenkins rne Other [facility] Start: 10-02-2021 End: 10-02-2021 Patient encounter procedure Miguel Stewart CNP Work Phone: [facility] Start: 10-02-2021 End: 10-02-2021 Subsequent hospital visit by physician Miguel Stewart CNP Work Phone: [facility] Comment on above: Women's annual routi ne gynecological examination Start: 10-14-2020 End: 10-15-2020 Emergency department patient visit Donny Hatfield DO Work Phone: [facility] ED Comment on above: Nausea vomiting and diarrhea (Primary Dx); Generalized abdominal pain Start: 09-23-2020 End: 09-24-2020 ambulatory MIGUEL HOLLEY [facility] Start: 09-23-2020 End: 09-23-2020 Subsequent hospital visit by physician Miguel Stewart CNP Work Phone: [facility] Start: 09-23-2020 End: 09-23-2020 General Jammie RODAS Work Phone: [facility] Work Phone: Start: 09-23-2020 End: 09-23-2020 Adult health examination Miguel Holley CNP Work Phone: [facility] Work Phone: Start: 09-23-2020 End: 09-23-2020 FQHC visit, estab pt Miguel Holley CNP Work Phone: [facility] Work Phone: Start: 04-08-2020 End: 04-08-2020 Emergency department patient visit Miguel Holley [facility] ED Comment on above: COVID-19 (Primary Dx ); Fatty liver Start: 03-19-2020 End: 03-19-2020 Telemedicine consultation with patient Miguel Holley Work Phone: [facility] Work Phone: Start: 03-05-2020 End: 03-05-2020 Established patient Miguel Holley Work Phone: [facility] Work Phone: Start: 12-05-2019 End: 12-05-2019 Established patient Poly Franco Work Phone: [facility] Work Phone: Start: 11-06-2019 End: 11-06-2019 Established patient Poly Franco Work Phone: [facility] Work Phone: Start: 10-12-2019 End: 10-12-2019 Patient encounter procedure Paty Short Work Phone: [facility] Work Phone: Start: 10-12-2019 End: 10-12-2019 Established patient Poly Franco Work Phone: [facility] Work Phone: Start: 09-14-2019 End: 09-14-2019 Established patient Poly Franco Work Phone: [facility] Work Phone: Start: 09-11-2019 End: 09-11-2019 Telemedicine consultation with patient Poly Franco Work Phone: [facility] Work Phone: Start: 09-05-2019 End: 09-05-2019 Telemedicine consultation with patient Poly Franco Work Phone: [facility] Work Phone: Start: 08-17-2019 End: 09-11-2019 Telemedicine consultation with patient Poly Franco Work Phone: [facility] Work Phone: Start: 08-17-2019 End: 08-17-2019 Established patient Miguel Holley Work Phone: [facility] Work Phone: Start: 07-20-2019 End: 07-20-2019 Established patient Miguel Holley Work Phone: [facility] Work Phone: Start: 07-06-2019 End: 07-06-2019 Subsequent hospital visit by physician Jackson FORMAN [facility] Start: 07-06-2019 End: 07-06-2019 Established patient Anh Virk Work Phone: [facility] Work Phone: Start: 07-06-2019 End: 07-06-2019 New patient Allyson Floyd Work Phone: [facility] Work Phone: Start: 02-02-2019 End: 02-04-2019 Subsequent hospital visit by physician [facility] Ultrasound Room [facility] Ultrasound Comment on above: Encounter for intrau terine device placement Start: 08-21-2018 End: 08-23-2018 Patient encounter procedure [facility] Start: 01-04-2017 End: 01-04-2017 Emergency department patient visit [address] [facility] Facility:[id number] Procedures Date Procedure Procedure Detail Performing Clinician Start: 12-16-2021 Assay of blood/uric acid Dedrick KULKARNI-C Work Phone: Start: 12-16-2021 C-reactive protein Robel Wood PA-C Work Phone: Start: 12-04-2021 Nerve conduction heaven dies 9-10 studies Shona Lucio Start: 10-02-2021 Microscopic observat ion [Identifier] in Cervix by Cyto stain 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 Work Phone: Start: 10-15-2020 Urinalysis microscop ic only Donny Hatfield DO Work Phone: Start: 10-15-2020 Urnls dip stick/tabl et rgnt auto w/o microscopy Donny And DO Work Phone: Start: 10-15-2020 Ct abdomen & pelvis w/contrast material Donny And DO Work Phone: Start: 10-15-2020 Assay of lactate Donny And DO Work Phone: Start: 10-15-2020 BASIC METABOLIC PANE L W/ REFLEX TO MG FOR LOW K Donny And DO Work Phone: Start: 10-15-2020 Hepatic function panel Donny And DO Work Phone: Start: 09-23-2020 Most recent diastoli c blood pressure < 80 mm hg Miguel Holley [facility] Work Phone: Start: 09-23-2020 Most recent systolic blood pressure <130 mm hg Miguel Holley [facility] Work Phone: Start: 09-23-2020 Pt-focused hlth risk assmt score doc stnd instrm Miguel Holley [facility] Work Phone: Start: 09-23-2020 Antibody hiv-1&hiv-2 single result Miguel Holley [facility] Work Phone: Start: 09-23-2020 Comprehensive metabo lic panel 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 - [facility] Work Phone: Start: 04-08-2020 Ct thorax w/contrast material Ninoska Marianne Work Phone: Start: 04-08-2020 COVID-19 Ninoska [facility] hes Work Phone: Start: 04-08-2020 Urine test visual color cmprsn meths Ninoska Marianne Work Phone: Start: 04-08-2020 Assay of troponin quantitative Ninoska Marianne Work Phone: Start: 04-08-2020 Blood count complete automated Ninoska Marianne Work Phone: Start: 04-08-2020 Comprehensive metabo lic panel Ninoska Lopes Work Phone: Start: 04-08-2020 Natriuretic peptide Selena Lopes Work Phone: Start: 04-08-2020 Prothrombin time Ninoska Lopes Work Phone: Start: 04-08-2020 Thromboplastin time partial plasma/whole blood Ninoska Lopes Work Phone: Start: 12-05-2019 Diast bp <80 mm hg Poly Salvador Work Phone: Start: 12-05-2019 Syst bp lt 130 mm hg Ka ra Salvador Work Phone: Start: 11-06-2019 Diast bp 80-89 mm hg Ka ra Salvador Work Phone: Start: 11-06-2019 Syst bp lt 130 mm hg Ka ra Salvador Work Phone: Start: 10-12-2019 Diast bp 80-89 mm hg Ka ra Salvador Work Phone: Start: 10-12-2019 Syst bp lt 130 mm hg Ka ra Salvador Work Phone: Start: 09-14-2019 Diast bp 80-89 mm hg Ka ra Salvador Work Phone: Start: 09-14-2019 Syst bp ge 130 - 139mm hg Poly Savlador Work Phone: Start: 08-17-2019 Diast bp <80 mm hg Humza e Leydi Work Phone: Start: 08-17-2019 Syst bp lt 130 mm hg nury Leydi Work Phone: Start: 07-06-2019 Hemoglobin glycosyla marty a1c Allyson Floyd Work Phone: Start: 07-06-2019 Psychotherapy w/emely ent 30 minutes Anh Virk Work Phone: Start: 07-06-2019 Assay of free thyroxine Allyson Floyd Work Phone: Start: 07-06-2019 Assay of thyroid stimulating hormone tsh Allysonhiedi Floyd Work Phone: Start: 07-06-2019 Assay of triiodothyr onine t3 total tt3 Allyson Floyd Work Phone: Start: 07-06-2019 Blood count complete auto&auto difrntl wbc Allyson Floyd Work Phone: Start: 07-06-2019 Comprehensive metabo lic panel Allyson Floyd Work Phone: Start: 07-06-2019 Lipid panel Allyson Floyd Work Phone: Start: 02-02-2019 Us transvaginal Dana Akins Work Phone: Start: 02-07-2018 Microscopic observat ion [Identifier] in Cervix by Cyto stain 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 Work Phone: NEGATED: Highlighted row has not occurred!Start: 11-06-2019 currently nursing Miguel Leydi NEGATED: Highlighted row has not occurred!Start: 11-06-2019 currently Miguel Leydi NEGATED: Highlighted row has not occurred!Start: 07-06-2019 reported medical history Miguel Holley Plan of Treatment Date Care Activity Detail Author Start: 10-02-2024 Screening for malign ant neoplasm of cervix Pap smear [facility] Start: 01-20-2023 End: 01-20-2023 Admission to same day surgery center 01/20/2023 Surgery IP Unit Vickie Nichols MD [address] [place] [address] HYSTEROSCOPY - IUD REMOVAL [facility] Comment on above: HYSTEROSCOPY - IUD R EMOVAL Start: 01-20-2023 End: 01-20-2023 Hysteroscopy removal impacted foreign body HYSTEROSCOPY Intrauterine contraceptive device threads lost, initial encounter 01/20/2023 11:10 AM EDT [facility] Start: 01-20-2023 Subsequent hospital visit by physician 01/20/2023 Hospital Encounter IP Unit Vickie Nichols MD [address] [place] [address] [facility] Start: 12-29-2022 Influenza vaccination Flu vaccine (# 1) [facility] Start: 04-27-2022 End: 04-27-2022 Patient encounter procedure [facility] Start: 01-29-2022 Influenza vaccination [facility] Start: 02-07-2021 Cervical cancer screen Cervical canc er screen [place], [place] Start: 02-07-2021 Screening for malign ant neoplasm of cervix [facility] Start: 01-29-2021 Influenza vaccination Flu vacc ine (Season Ended) [facility] Work Phone: Start: 09-30-2020 CBC W Auto Different ial panel - Blood [facility] Start: 09-30-2020 Lipid 1996 panel - S stefan or Plasma LIPID PROFILE [facility] Start: 09-23-2020 Psychiatry [facility] Work Phone: Comment on above: Note: Please make a referral to: Start: 03-26-2020 SARS-CoV-2, KAILA [facility] Work Phone: Start: 03-19-[address] up Testing [facility] Work Phone: Start: 02-06-2020 Medical Establ ished Patient [facility] Work Phone: Start: 01-30-2020 Influenza vaccination Flu vaccine (# 1) [place], [place] Start: 11-09-2019 Medical Establ ished Patient [facility] Work Phone: Start: 10-11-2019 Medical Establ ished Patient [facility] Work Phone: Start: 09-14-2019 Medical Establ ished Patient [facility] Work Phone: Start: 08-17-2019 Medical Establ ished Patient [facility] Work Phone: Start: 07-20-2019 Medical Establ ished Patient [facility] Work Phone: Start: 07-13-2019 Lipid 1996 panel [facility] Work Phone: Start: 02-14-2019 End: 02-14-2019 Office Visit 02/14/2019 Office Visit Obstetrics and Gynecology Pilar Marie BlairIO[facility] - [facility] [place] [address] [phone] [facility] 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 Start: 02-07-2019 Chlamydia screen Chlamydia screen [place], [place] Start: 02-07-2019 Screening for Chlamy valentino trachomatis Chlamydia screen [facility] Start: 01-29-2019 Influenza vaccination Flu vaccine (# 1) [place], [place] Start: 10-29-2017 DTaP/Tdap/Td vaccine (2 - Td or Tdap) DTaP/Tdap/Td vaccine (2 - Td or Tdap) [facility] Start: 10-29-2017 DTaP/Tdap/Td vaccine (2 - Td) DTaP/Tdap/Td vaccine (2 - Td) [place] Start: 2014 Hepatitis C screening Hepatitis C sc reen [facility] Start: 2012 COVID-19 Vaccine (1) COVID-19 Vaccin e (1) [facility] Work Phone: Start: 2011 HIV screen HIV screen [place], [place] Start: 2011 HIV screening HIV screen [facility] Start: 2011 HPV vaccine (1 - Fem shiela 3-dose series) HPV vaccine (1 - Female 3-dose series) [place], [place] Start: 2009 Varicella Vaccine (1 of 2 - 13+ 2-dose series) Varicella Vaccine (1 of 2 - 13+ 2-dose series) [place] Start: 2008 COVID-19 Vaccine (1) COVID-19 Vaccin e (1) [facility] Work Phone: Start: 2008 Depression Screen Depression Screen [facility] Start: 2007 HPV vaccine (1 - 2-d ose series) HPV vaccine (1 - 2-dose series) [facility] Start: 2007 HPV vaccine (1 - Fem shiela 2-dose series) HPV vaccine (1 - Female 2-dose series) [employer] Phone: Start: 2001 COVID-19 Vaccine (1) COVID-19 Vaccin e (1) [employer] Start: 1997 Varicella vaccine (1 of 2 - 2-dose childhood series) Varicella vaccine (1 of 2 - 2-dose childhood series) [employer] Start: 1996 COVID-19 Vaccine (#1) COVID-19 Vacci ne (#1) [facility] Start: 1996 Hepatitis C screening Hepatitis C sc reen [employer] Phone: End: 12-16-2021 GLENNY Screen with Reflex [facility] Phone: Comment on above: Once for 1 Occurrenc es starting 12/16/2021 until 12/16/2021 End: 10-02-2021 Cytopathology procedure, preparation of smear, genital source PAP SMEAR Lab Routine Women's annual routine gynecological examination 1 Occurrences starting 10/02/2021 until 10/02/2021 [employer] Phone: Comment on above: 1 Occurrences starti ng 10/02/2021 until 10/02/2021 End: 01-01-2023 Cytopathology procedure, preparation of smear, genital source PAP SMEAR Lab Routine Women's annual routine gynecological examination 1 Occurrences starting 01/01/2023 until 01/01/2023 [facility] Phone: Comment on above: 1 Occurrences starti ng 01/01/2023 until 01/01/2023 End: 12-16-2021 HLA-B27 Antigen [facility] Phone: Comment on above: Once for 1 Occurrenc es starting 12/16/2021 until 12/16/2021 End: 07-06-2019 Insulin, free Insulin, free Lab Routine Once for 1 Occurrences starting 07/06/2019 until 07/06/2019 [employer] Phone: Comment on above: Once for 1 Occurrenc es starting 07/06/2019 until 07/06/2019 Insulin, free Insulin, free La b Routine 07/06/2019 9:31 AM EST [employer] Work Phone: End: 12-16-2021 Lyme Ab MONTERROSO [employer] Work Phone: Comment on above: Once for 1 Occurrenc es starting 12/16/2021 until 12/16/2021 Immunizations Immunization Date Immunization Notes Care Provider Em de la cruz 10-30-2007 tetanus toxoid, redu katelyn diphtheria toxoid, and acellular pertussis vaccine, adsorbed [facility] [employer] Payers Date Payer Category Payer Unknown [id number] 2022 Unknown [id number] 2018 Unknown [id number] 2016 Unknown [employer] [address] xxxxxxxxxxxx 2016-Present [phone] [address] [place] [address] xxxxxxxxxxxx [id number] 1996 Unknown [id number] 1996 Unknown [id number] 1996 Unknown [id number] 1996 Unknown [id number] 1996 Unknown [id number] 1996 Unknown [id number] 1996 Unknown [id number] 1996 Unknown [id number] 1996 Unknown [id number] 1996 Unknown [id number] 9 Unknown [id number] Social History Date Type Detail Facility Assertion [facility] Work Phone: Assertion Emotional stress (finding) [facility] Work Phone: Tobacco smoking status Unknown if ever smoked [facility] Work Phone: Assertion Sexually active (finding) [facility] Work Phone: Assertion Gender identity finding (finding) [facility] Work Phone: Assertion Finding of sexua l orientation (finding) [facility] Work Phone: Start: 10-13-2013 End: 02-07-2018 Tobacco smoking status NHIS Never smoker [place], [place] Start: 02-07-2018 End: 01-01-2023 Alcohol intake Current drinker of alcohol (finding) [facility] [employer] Phone: Start: 12-12-2015 Alcohol Comment occassionally [place], [place] Start: 1995 Sex Assigned At Not on file [place] Start: 10-13-2013 End: 04-08-2020 Tobacco use and exposure Never used [place], [place] Exposure to SARS-CoV-2 (event) Not sure [place] Start: 02-07-2018 Alcohol intake Yes [place], [place] Assertion Family illness (situation) [facility] Work Phone: Assertion Single person (finding) [facility] Work Phone: Start: *Tobacco [facility] NEGATED: Highlighted row Assertion Exposure to pollution (event) [facility] Work Phone: NEGATED: Highlighted row Assertion Tobacco user (finding) [facility] Work Phone: NEGATED: Highlighted row Assertion Current drinker of alcohol (finding) [facility] Work Phone: NEGATED: Highlighted row Assertion Finding relating to drug misuse behavior (finding) [facility] Work Phone: Mental Status Date Assessment Result Facility Cognitive function Cognitive fun ctioning was normal Cognitive function finding (finding) [facility] Work Phone: Clinical Notes 11-06-2019 to 09-23-2020 Note Date & Type Note Facility 09-23-2020 Evaluation note Includes: Assessments for all patient encounters Findings Anxiety disorder NOS Telebehavioral H ealth with Jammie RODAS 09/23/2020 Assessment of visit for: screening for human immunodeficiency virus Medical Established Patient with Miguel Leydi [facility] 09/23/2020 Diabetes Risk Test Score was three score 09/23/2020 Medical Established Patient with Miguel Leydi [facility] 09/23/2020 Morbid obesity Medical Established Patient with Miguel Leydi [facility] 09/23/2020 Routine adult history and physical (18-64 yrs) without abnormal findings Medical Established Patient with Miguel Leydi [facility] 09/23/2020 Z68.41 - Body mass index [BMI]40.0-44.9, adult Medical Established Patient with Miguel Leydi [facility] 09/23/2020 Cough Telemedicine Establi sted Patient with Miguelcristal Holley [facility] 03/19/2020 Exposure to a viral disease Telemedicine Establisted Patient with Miguel Holley [employer] 03/19/2020 Obesity due to excess calories Telemedic ine Establisted Patient with Miguelcristal Holley [facility] 03/19/2020 Z68.37 - Body mass index [BM I] 37.0-37.9, adult Telemedicine Establisted Patient with Miguelcristal Holley [employer] 03/19/2020 Obesity due to excess calories Medical E stablished Patient with Miguel Holley [facility] 03/05/2020 Z68.37 - Body mass index [BM I] 37.0-37.9, adult Medical Established Patient with Miguel Holley [facility] 03/05/2020 Obesity due to excess calories Medical E stablished Patient with Poly Franco [employer] 12/05/2019 R21 - Rash and other nonspecific skin eruption Medical Established Patient with Poly Wagonerle [employer] MECHAN[employer] 12/05/2019 Z68.35 - Body mass index (BM I) 35.0-35.9, adult Medical Established Patient with Poly Wagonerle [employer] 12/05/2019 Obesity due to excess calories Medical E stablished Patient with Polykamryn Wagonerle [employer] 11/06/2019 Z68.36 - Body mass index (BM I) 36.0-36.9, adult Medical Established Patient with Poly Wagonerle [employer] 11/06/2019 Obesity due to excess calories Medical E stablished Patient with Poly Wagonerle [employer] 10/12/2019 Z68.38 - Body mass index (BM I) 38.0-38.9, adult Medical Established Patient with Polykamryn Wagonerle [facility] 10/12/2019 L25.5 - Unspecified contact dermatitis due to plants, except food Medical Established Patient with Poly Wagonerle [employer] 09/14/2019 Obesity due to excess calories Medical E stablished Patient with Poly Salvador [facility] 09/14/2019 Z68.37 - Body mass index (BM I) 37.0-37.9, adult Medical Established Patient with Poly Wagonerle [facility] 09/14/2019 L25.5 - Unspecified contact dermatitis due to plants, except food Telemedicine with Poly Wagonerle [facility] 09/11/2019 Obesity due to excess calories Telemedic ine with Poly Salvador [facility] 09/11/2019 Z68.37 - Body mass index (BM I) 37.0-37.9, adult Telemedicine with Poyl Wagonerle [facility] 09/11/2019 Dermatitis due to contact wi th poison spencer Telemedicine with Poly Wagonerle [facility] 09/05/2019 Obesity due to excess calories Telemedic ine with Poly Salvador [facility] 09/05/2019 Z68.37 - Body mass index (BM I) 37.0-37.9, adult Telemedicine with Poly Wagonerle [employer] 09/05/2019 Obesity due to excess calories Medical E stablished Patient with Miguel Holley [facility] 08/17/2019 Z68.37 - Body mass index (BM I) 37.0-37.9, adult Medical Established Patient with Miguel Holley [employer] 08/17/2019 Generalized anxiety disorder BH Establis hed Patient with Anh VIDAL 07/06/2019 Anxiety disorder NOS Medical New Patient with Allyson Floyd CNP 07/06/2019 Depression Medical New Patient with Allyson Floyd CNP 07/06/2019 Diabetes Risk Test Score was one score Medical New Patient with Allyson Floyd [employer] 07/06/2019 Idiopathic insomnia Medical New Patient with Allyson Floyd [employer] 07/06/2019 Obesity due to excess calories Medical N ew Patient with Allyson Floyd [employer] 07/06/2019 Z68.39 - Body mass index (BM I) 39.0-39.9 adult Medical New Patient with Allyson Floyd CNP 07/06/2019 [facility] Work Phone: [phone] 677-972906-08-2020 History general Narrative - Reported Includes: Medical History in patient's chart Description Last Updated Not currently nursing 11/06/2019 Not 11/06/2019 No reported medical history or no signif icant history 07/06/2019 [facility] Work Phone: Evaluation note Includes: Assessments for all patient encounters Findings Encounter Date Assessment of visit for: cristóbal montoya for human immunodeficiency virus Medical Established Patient with Miguel Holley CNP 09/23/2020 Diabetes Risk Test Score was three score 09/23/2020 Medical Established Patient with Miguel Holley [employer] 09/23/2020 Morbid obesity Medical Established Patient with Miguel Holley [employer] 09/23/2020 Routine adult history and ph ysical (18-64 yrs) without abnormal findings Medical Established Patient with Miguel Holley [employer] 09/23/2020 Z68.41 - Body mass index [BMI]40.0-44.9, adult Medical Established Patient with Miguel Holley CNP 09/23/2020 Cough Telemedicine Establi sted Patient with Miguel Holley CNP 03/19/2020 Exposure to a viral disease Telemedicine Establisted Patient with Miguel Holley [employer] 03/19/2020 Obesity due to excess calories Telemedic ine Establisted Patient with Miguel Holley [employer] 03/19/2020 Z68.37 - Body mass index [BM I] 37.0-37.9, adult Telemedicine Establisted Patient with Miguel Holley [facility] 03/19/2020 Obesity due to excess calories Medical E stablished Patient with Miguel Holley [facility] 03/05/2020 Z68.37 - Body mass index [BM I] 37.0-37.9, adult Medical Established Patient with Miguel Holley [facility] 03/05/2020 Obesity due to excess calories Medical E stablished Patient with Poly Franco [facility] 12/05/2019 R21 - Rash and other nonspec ific skin eruption Medical Established Patient with Polykamryn Wagonerle [employer] 12/05/2019 Z68.35 - Body mass index (BM I) 35.0-35.9, adult Medical Established Patient with Poly Franco [employer] MECH[employer]IC 12/05/2019 Obesity due to excess calories Medical E stablished Patient with Poly Wagonerle [facility] 11/06/2019 Z68.36 - Body mass index (BM I) 36.0-36.9, adult Medical Established Patient with Poly Franco [facility] 11/06/2019 Obesity due to excess calories Medical E stablished Patient with Poly Wagonerle [facility] 10/12/2019 Z68.38 - Body mass index (BM I) 38.0-38.9, adult Medical Established Patient with Polykamryn Wagonerle [facility] 10/12/2019 L25.5 - Unspecified contact dermatitis due to plants, except food Medical Established Patient with Poly Wagonerle [facility] 09/14/2019 Obesity due to excess calories Medical E stablished Patient with Poly Wagonerle [facility] 09/14/2019 Z68.37 - Body mass index (BM I) 37.0-37.9, adult Medical Established Patient with Polykamryn Wagonerle [facility] 09/14/2019 L25.5 - Unspecified contact dermatitis due to plants, except food Telemedicine with Poly Wagonerle [facility] 09/11/2019 Obesity due to excess calories Telemedicine with Polykamryn Wagonerle [facility] 09/11/2019 Z68.37 - Body mass index (BM I) 37.0-37.9, adult Telemedicine with Poly Wagonerle [facility] 09/11/2019 Dermatitis due to contact wi th poison spencer Telemedicine with Poly Wagonerle [facility] 09/05/2019 Obesity due to excess calories Telemedicine with Poly Wagonerle [facility] 09/05/2019 Z68.37 - Body mass index (BM I) 37.0-37.9, adult Telemedicine with Poly Franco [employer]CH[employer]IC 09/05/2019 Obesity due to excess calories Medical E stablished Patient with Miguel Holley [employer] 08/17/2019 Z68.37 - Body mass index (BM I) 37.0-37.9, adult Medical Established Patient with Miguel Holley [employer] 08/17/2019 Generalized anxiety disorder BH Establis hed Patient with Anh FERNANDEZS 07/06/2019 Anxiety disorder NOS Medical New Patient with Allyson Floyd [employer]CH[employer]IC 07/06/2019 Depression Medical New Patient with Allyson Floyd [employer]CH[employer] 07/06/2019 Diabetes Risk Test Score was one score M edical New Patient with Allyson Floyd [facility] 07/06/2019 Idiopathic insomnia Medical New Patient with Allyson Floyd [employer]CH[employer]IC 07/06/2019 Obesity due to excess calories Medical N ew Patient with Allyson Floyd [facility] 07/06/2019 Z68.39 - Body mass index (BM I) 39.0-39.9 adult Medical New Patient with Allyson Floyd [facility] 07/06/2019 [facility] [employer] [facility] Work Phone: Evaluation note* Diagnosis Nausea vomiting and diarrhea- Primary Nausea with vomiting Generalized abdominal pain Abdominal pain, generalized [facility]* Diagnosis Women's annual routine gynecological examination [facility]* Diagnosis Women's annual routine gynecological examination Intrauterine contraceptive device threads lost, initial encounter [facility] Narrative History of Present Illness not supported for this document type No History of Present Illness [facility] [employer] [facility] Work Phone: Hospital Discharge instructions* Attachments The following attachments cannot be sent through Care Everywhere. * Abdominal Pain (Panamanian) * Nausea and Vomiting (Panamanian) * Diarrhea ([place]ian) [facility] Instructions Instructions not supported for this document type No Instructions [facility] [employer] [facility] Work Phone: Patient problem outcome Narrative Includes: Evaluations & Outcomes for active Goals No Outcomes [facility] [employer] [facility] Work Phone: Reason for referral (narrative)No Reason for Referral [facility] Work Phone: Review of systems Narrative - Reported Review of Systems not supported for this document type No Review of Systems [facility] Work Phone: Summary Purpose Family History No Family History Records Found Description Last Updated Maternal history of rheumatoid arthritis 07/06/2019 Maternal history of rheumatologic disord er Fibromyalgia 07/06/2019 Maternal history of systemic lupus eryth ematosus 07/06/2019 Paternal history of type 1 diabetes marino itus 07/06/2019 Advance Directives No Advanced Directives Records FoundDocuments on File Type Date Recorded Patient Information Consultant Expl anation Advance Directives and Living Will Power 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 Documents on File Type Date Recorded Patient Information Consultant Expl anation ACP-Advance Directive ACP-Power 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 Documents on File Type Date Recorded Patient Information Consultant Expl anation Advance Directives and Living Will Power 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 Reason for Referral No Reason for Referral RecordedNo Reason for Referral RecordedNo Reason for Referral RecordedNo Reason for Referral RecordedNo Reason for Referral Recorded No Reason for Referral RecordedNo Reason for Referral RecordedNo Reason for Referral RecordedNo Reason for Referral RecordedNo Reason for Referral Recorded No Reason for Referral RecordedNo Reason for Referral RecordedNo Reason for Referral RecordedNo Reason for Referral RecordedNo Reason for Referral Recorded Assessments Findings Encounter Date Generalized anxiety disorder BH Establis hed Patient with Anh VIDAL 07/06/2019 Anxiety disorder NOS Medical New Patient with Allyson Oakley [employer] MECHANIC 07/06/2019 Depression Medical New Patient with Allyson Oakley [employer]CHANIC 07/06/2019 Diabetes Risk Test Score was one score Medical New Patient with Allyson Oakley [employer]CHANIC 07/06/2019 Idiopathic insomnia Medical New Patient with Allyson Oakley [employer]CHANIC 07/06/2019 Obesity due to excess calories Medical N ew Patient with Allyson Oakley [employer] MECHANIC 07/06/2019 Z68.39 - Body mass index (BM I) 39.0-39.9 adult Medical New Patient with Allyson Oakley [employer]CHANIC 07/06/2019 Findings Encounter Date Obesity due to excess calories Medical E stablished Patient with Poly Franco MASTER MECHANIC 10/12/2019 Z68.38 - Body mass index (BM I) 38.0-38.9, adult Medical Established Patient with Poly Franco [facility] 10/12/2019 L25.5 - Unspecified contact dermatitis due to plants, except food Medical Established Patient with Poly Franco [employer]STER MECHANIC 09/14/2019 Obesity due to excess calories Medical E stablished Patient with Poly Franco [facility] 09/14/2019 Z68.37 - Body mass index (BM I) 37.0-37.9, adult Medical Established Patient with Poly Franco [facility] 09/14/2019 L25.5 - Unspecified contact dermatitis due to plants, except food Telemedicine with Poly Franco [facility] 09/11/2019 Obesity due to excess calories Telemedicine with Poly Franco [facility] 09/11/2019 Z68.37 - Body mass index (BM I) 37.0-37.9, adult Telemedicine with Poly Franco [facility] 09/11/2019 Dermatitis due to contact wi th poison spencer Telemedicine with Poly Franco [facility] 09/05/2019 Obesity due to excess calories Telemedicine with Poly Franco [facility] 09/05/2019 Z68.37 - Body mass index (BM I) 37.0-37.9, adult Telemedicine with Poly Franco [facility] 09/05/2019 Obesity due to excess calories Medical E stablished Patient with Miguel Holley [facility] 08/17/2019 Z68.37 - Body mass index (BM I) 37.0-37.9, adult Medical Established Patient with Miguel Holley [facility] 08/17/2019 Generalized anxiety disorder BH Establis hed Patient with Anh VIDAL 07/06/2019 Anxiety disorder NOS Medical New Patient with Allyson Everett [employer]CH[employer]IC 07/06/2019 Depression Medical New Patient with Allyson Oakley [employer]CH[employer]IC 07/06/2019 Diabetes Risk Test Score was one score Medical New Patient with Allyson Oakley [employer]CH[employer]IC 07/06/2019 Idiopathic insomnia Medical New Patient with Allyson Oakley [employer] MECHANIC 07/06/2019 Obesity due to excess calories Medical N ew Patient with Allyson Oakley [employer]CHANIC 07/06/2019 Z68.39 - Body mass index (BM I) 39.0-39.9 adult Medical New Patient with Allyson Oakley [employer]CHANIC 07/06/2019 Findings Encounter Date Obesity due to excess calories Medical E stablished Patient with Miguel Leydi [facility] 08/17/2019 Z68.37 - Body mass index (BM I) 37.0-37.9, adult Medical Established Patient with Miguel Leydi [employer] 08/17/2019 Generalized anxiety disorder BH Establis hed Patient with Anhbrad Virk [employer]LECT[employer]ICAL [employer]OSPECTING ENGINEER-S 07/06/2019 Anxiety disorder NOS Medical New Patient with Allyson Everett [employer] MECHANIC 07/06/2019 Depression Medical New Patient with Allyson Everett MASTER MECHANIC 07/06/2019 Diabetes Risk Test Score was one score Medical New Patient with Allyson Oakley MA[employer] MECHANIC 07/06/2019 Idiopathic insomnia Medical New Patient with Allyson Oakley [employer] MECHANIC 07/06/2019 Obesity due to excess calories Medical N ew Patient with Allyson Everett MASTER MECHANIC 07/06/2019 Z68.39 - Body mass index (BM I) 39.0-39.9 adult Medical New Patient with Allyson Oakley MA[employer] MECHANIC 07/06/2019 Findings Encounter Date Dermatitis due to contact wi th poison spencer Telemedicine with Poly Salvador MASTER MECHANIC 09/05/2019 Obesity due to excess calories Telemedicine with Poly Salvador [employer] MECHANIC 09/05/2019 Z68.37 - Body mass index (BM I) 37.0-37.9, adult Telemedicine with Poly Salvador [employer] MECHANIC 09/05/2019 Obesity due to excess calories Medical E stablished Patient with Miguel Leydi [employer]IC 08/17/2019 Z68.37 - Body mass index (BM I) 37.0-37.9, adult Medical Established Patient with Miguel Leydi [employer] 08/17/2019 Generalized anxiety disorder BH Establis hed Patient with Anh Virk ELECTRICAL PROSPECTING ENGINEER-S 07/06/2019 Anxiety disorder NOS Medical New Patient with Allyson Everett MA[employer] MECHANIC 07/06/2019 Depression Medical New Patient with Allyson Everett MASTER MECHANIC 07/06/2019 Diabetes Risk Test Score was one score Medical New Patient with Allyson Oakley MASTER MECHANIC 07/06/2019 Idiopathic insomnia Medical New Patient with Allyson Everett MASTER MECHANIC 07/06/2019 Obesity due to excess calories Medical N ew Patient with Allyson Everett MASTER MECHANIC 07/06/2019 Z68.39 - Body mass index (BM I) 39.0-39.9 adult Medical New Patient with Allyson Everett MASTER MECHANIC 07/06/2019 Findings Encounter Date L25.5 - Unspecified contact dermatitis due to plants, except food Telemedicine with Poly Salvador MASTER MECHANIC 09/11/2019 Obesity due to excess calories Telemedicine with Poly Salvador [employer] MECHANIC 09/11/2019 Z68.37 - Body mass index (BM I) 37.0-37.9, adult Telemedicine with Poly Franco [facility] 09/11/2019 Dermatitis due to contact wi th poison spencer Telemedicine with Poly Franco [facility] 09/05/2019 Obesity due to excess calories Telemedicine with Poly Franco [facility] 09/05/2019 Z68.37 - Body mass index (BM I) 37.0-37.9, adult Telemedicine with Poly Franco MASTER MECHANIC 09/05/2019 Obesity due to excess calories Medical E stablished Patient with Miguel Holley [facility] 08/17/2019 Z68.37 - Body mass index (BM I) 37.0-37.9, adult Medical Established Patient with Miguel Holley [facility] 08/17/2019 Generalized anxiety disorder BH Establis hed Patient with Anh VIDAL 07/06/2019 Anxiety disorder NOS Medical New Patient with Allyson Floyd MASTER MECHANIC 07/06/2019 Depression Medical New Patient with Allyson Nye [facility] 07/06/2019 Diabetes Risk Test Score was one score Medical New Patient with Allyson Everett [facility] 07/06/2019 Idiopathic insomnia Medical New Patient with Allyson Nye MASTER MECHANIC 07/06/2019 Obesity due to excess calories Medical N ew Patient with Allyson Everett [facility] 07/06/2019 Z68.39 - Body mass index (BM I) 39.0-39.9 adult Medical New Patient with Allyson Floyd [facility] 07/06/2019 Findings Encounter Date L25.5 - Unspecified contact dermatitis due to plants, except food Medical Established Patient with Poly Franco [facility] 09/14/2019 Obesity due to excess calories Medical E stablished Patient with Poly Wagonerle [facility] 09/14/2019 Z68.37 - Body mass index (BM I) 37.0-37.9, adult Medical Established Patient with Poly Franco [facility] 09/14/2019 L25.5 - Unspecified contact dermatitis due to plants, except food Telemedicine with Poly Wagonerle [facility] 09/11/2019 Obesity due to excess calories Telemedicine with Poly Wagonerle [facility] 09/11/2019 Z68.37 - Body mass index (BM I) 37.0-37.9, adult Telemedicine with Poly Franco [facility] 09/11/2019 Dermatitis due to contact wi th poison spencer Telemedicine with Poly Franco [facility] 09/05/2019 Obesity due to excess calories Telemedicine with Poly Franco MASTER MECHANIC 09/05/2019 Z68.37 - Body mass index (BM I) 37.0-37.9, adult Telemedicine with Poly Franco MASTER MECHANIC 09/05/2019 Obesity due to excess calories Medical E stablished Patient with Miguel Holley MASTER MECHANIC 08/17/2019 Z68.37 - Body mass index (BM I) 37.0-37.9, adult Medical Established Patient with Miguel Holley MASTER MECHANIC 08/17/2019 Generalized anxiety disorder BH Establis hed Patient with Anh RODAS-S 07/06/2019 Anxiety disorder NOS Medical New Patient with Allyson Nye MASTER MECHANIC 07/06/2019 Depression Medical New Patient with Allyson Nye MASTER MECHANIC 07/06/2019 Diabetes Risk Test Score was one score Medical New Patient with Allyson Everett MASTER MECHANIC 07/06/2019 Idiopathic insomnia Medical New Patient with Allyson Oakley MASTER MECHANIC 07/06/2019 Obesity due to excess calories Medical N ew Patient with Allyson Oakley MASTER MECHANIC 07/06/2019 Z68.39 - Body mass index (BM I) 39.0-39.9 adult Medical New Patient with Allyson Floyd MASTER MECHANIC 07/06/2019 Findings Encounter Date Obesity due to excess calories Medical E stablished Patient with Poly Wagonerle MASTER MECHANIC 11/06/2019 Z68.36 - Body mass index (BM I) 36.0-36.9, adult Medical Established Patient with Poly Wagonerle MASTER MECHANIC 11/06/2019 Obesity due to excess calories Medical E stablished Patient with Poly Wagonerle [facility] 10/12/2019 Z68.38 - Body mass index (BM I) 38.0-38.9, adult Medical Established Patient with Poly Salvador MASTER MECHANIC 10/12/2019 L25.5 - Unspecified contact dermatitis due to plants, except food Medical Established Patient with Poly Salvador MASTER MECHANIC 09/14/2019 Obesity due to excess calories Medical E stablished Patient with Poly Salvador MASTER MECHANIC 09/14/2019 Z68.37 - Body mass index (BM I) 37.0-37.9, adult Medical Established Patient with Poly Salvador MASTER MECHANIC 09/14/2019 L25.5 - Unspecified contact dermatitis due to plants, except food Telemedicine with Poly Salvador MASTER MECHANIC 09/11/2019 Obesity due to excess calories Telemedicine with Poly Salvaodr MASTER MECHANIC 09/11/2019 Z68.37 - Body mass index (BM I) 37.0-37.9, adult Telemedicine with Poly Wagonerle MASTER MECHANIC 09/11/2019 Dermatitis due to contact wi th poison spencer Telemedicine with Poly Wagonerle MASTER MECHANIC 09/05/2019 Obesity due to excess calories Telemedicine with Poly Wagonerle MASTER MECHANIC 09/05/2019 Z68.37 - Body mass index (BM I) 37.0-37.9, adult Telemedicine with Poly Franco MASTER MECHANIC 09/05/2019 Obesity due to excess calories Medical E stablished Patient with Miguel Holley MASTER MECHANIC 08/17/2019 Z68.37 - Body mass index (BM I) 37.0-37.9, adult Medical Established Patient with Miguel Holley MASTER MECHANIC 08/17/2019 Generalized anxiety disorder BH Establis hed Patient with Anh VIDAL 07/06/2019 Anxiety disorder NOS Medical New Patient with Allyson Nye MASTER MECHANIC 07/06/2019 Depression Medical New Patient with Allyson Nye MASTER MECHANIC 07/06/2019 Diabetes Risk Test Score was one score Medical New Patient with Allyson Everett MASTER MECHANIC 07/06/2019 Idiopathic insomnia Medical New Patient with Allyson Everett MASTER MECHANIC 07/06/2019 Obesity due to excess calories Medical N ew Patient with Allyson Everett MASTER MECHANIC 07/06/2019 Z68.39 - Body mass index (BM I) 39.0-39.9 adult Medical New Patient with Allyson Nye MASTER MECHANIC 07/06/2019 Findings Encounter Date Obesity due to excess calories Medical E stablished Patient with Poly Wagonerle MASTER MECHANIC 12/05/2019 R21 - Rash and other nonspec [facility] skin eruption Medical Established Patient with Poly Salvador MASTER MECHANIC 12/05/2019 Z68.35 - Body mass index (BM I) 35.0-35.9, adult Medical Established Patient with Poly Salvador MASTER MECHANIC 12/05/2019 Obesity due to excess calories Medical E stablished Patient with Poly Salvador MASTER MECHANIC 11/06/2019 Z68.36 - Body mass index (BM I) 36.0-36.9, adult Medical Established Patient with Poly Salvador MASTER MECHANIC 11/06/2019 Obesity due to excess calories Medical E stablished Patient with Poly Salvador MASTER MECHANIC 10/12/2019 Z68.38 - Body mass index (BM I) 38.0-38.9, adult Medical Established Patient with Poly Franco MASTER MECHANIC 10/12/2019 L25.5 - Unspecified contact dermatitis due to plants, except food Medical Established Patient with Poly Franco MASTER MECHANIC 09/14/2019 Obesity due to excess calories Medical E stablished Patient with Poly Wagonerle [facility] 09/14/2019 Z68.37 - Body mass index (BM I) 37.0-37.9, adult Medical Established Patient with Poly Franco [facility] 09/14/2019 L25.5 - Unspecified contact dermatitis due to plants, except food Telemedicine with Poly Franco [facility] 09/11/2019 [facility]esity due to excess calories [facility] Z68.37 - Body mass index (BM I) 37.0-37.9, adult Telemedicine with Poly Franco [facility] 09/11/2019 Dermatitis due to contact wi th poison spencer Telemedicine with Poly Franco [facility] 09/05/2019 Obesity due to excess calories Telemedicine with Poly Franco [facility] 09/05/2019 Z68.37 - Body mass index (BM I) 37.0-37.9, adult Telemedicine with Poly Franco [facility] 09/05/2019 Obesity due to excess calories Medical E stablished Patient with Miguel Anguloen [facility] 08/17/2019 Z68.37 - Body mass index (BM I) 37.0-37.9, adult Medical Established Patient with Miguel Holley [facility] 08/17/2019 Generalized anxiety disorder BH Establis hed Patient with Anh VIDAL 07/06/2019 Anxiety disorder NOS Medical New Patient with Allyson Oakley MASTER MECHANIC 07/06/2019 Depression Medical New Patient with Allyson Oakley MASTER MECHANIC 07/06/2019 Diabetes Risk Test Score was one score Medical New Patient with Allyson Oakley MASTER MECHANIC 07/06/2019 Idiopathic insomnia Medical New Patient with Allyson Oakley MASTER MECHANIC 07/06/2019 Obesity due to excess calories Medical N ew Patient with Allyson Everett MASTER MECHANIC 07/06/2019 Z68.39 - Body mass index (BM I) 39.0-39.9 adult Medical New Patient with Allyson Oakley MASTER MECHANIC 07/06/2019 Findings Encounter Date Obesity due to excess calories Medical E stablished Patient with Miguel Leydi MASTER MECHANIC 03/05/2020 Z68.37 - Body mass index [BM I] 37.0-37.9, adult Medical Established Patient with Miguel Holley MASTER MECHANIC 03/05/2020 Obesity due to excess calories Medical E stablished Patient with Poly Franco MASTER MECHANIC 12/05/2019 R21 - [facility] Established Patient with Poly Salvador MASTER MECHANIC 12/05/2019 Z68.35 - Body mass index (BM I) 35.0-35.9, adult Medical Established Patient with Poly Wagonerle MASTER MECHANIC 12/05/2019 Obesity due to excess calories Medical E stablished Patient with Poly Salvador MASTER MECHANIC 11/06/2019 Z68.36 - Body mass index (BM I) 36.0-36.9, adult Medical Established Patient with Poly Wagonerle MASTER MECHANIC 11/06/2019 Obesity due to excess calories Medical E stablished Patient with Poly Salvador MASTER MECHANIC 10/12/2019 Z68.38 - Body mass index (BM I) 38.0-38.9, adult Medical Established Patient with Polykamryn Wagonerle [facility] 10/12/2019 L25.5 - Unspecified contact dermatitis due to plants, except food Medical Established Patient with Polykamryn Wagonerle MASTER MECHANIC 09/14/2019 Obesity due to excess calories Medical E stablished Patient with Poly Salvador MASTER MECHANIC 09/14/2019 Z68.37 - Body mass index (BM I) 37.0-37.9, adult Medical Established Patient with Polykamryn Wagonerle MASTER MECHANIC 09/14/2019 L25.5 - Unspecified contact dermatitis due to plants, except food Telemedicine with Poly Wagonerle [facility] 09/11/2019 Obesity due to excess calories Telemedicine with Poly Wagonerle [facility] 09/11/2019 Z68.37 - Body mass index (BM I) 37.0-37.9, adult Telemedicine with Poly Salvador [facility] 09/11/2019 Dermatitis due to contact wi th poison spencer Telemedicine with Polykamryn Wagonerle [facility] 09/05/2019 Obesity due to excess calories Telemedicine with Poylkamryn Wagonerle [facility] 09/05/2019 Z68.37 - Body mass index (BM I) 37.0-37.9, adult Telemedicine with Poly Wagonerle MASTER MECHANIC 09/05/2019 Obesity due to excess calories Medical E stablished Patient with Miguel Holley [facility] 08/17/2019 Z68.37 - Body mass index (BM I) 37.0-37.9, adult Medical Established Patient with Miguel Holley MASTER MECHANIC 08/17/2019 Generalized anxiety disorder BH Establis hed Patient with Anh VIDAL 07/06/2019 Anxiety disorder NOS Medical New Patient with Allyson Floyd MASTER MECHANIC 07/06/2019 Depression Medical New Patient with Allyson Floyd MASTER MECHANIC 07/06/2019 Diabetes Risk Test Score was one score Medical New Patient with Allyson Floyd MASTER MECHANIC 07/06/2019 Idiopathic insomnia Medical New Patient with Allyson Floyd MASTER MECHANIC 07/06/2019 Obesity due to excess calories Medical N ew Patient with Allyson Floyd MASTER MECHANIC 07/06/2019 Z68.39 - Body mass index (BM I) 39.0-39.9 adult Medical New Patient with Allyson Floyd MASTER MECHANIC 07/06/2019 Findings Encounter Date Cough Telemedicine Establi sted Patient with Miguel Holley MASTER MECHANIC 03/19/2020 Exposure to a viral disease Telemedicine Establisted Patient with Miguel Holley MASTER MECHANIC 03/19/2020 Obesity due to excess calories Telemedic ine Establisted Patient with Miguel Holley MASTER MECHANIC 03/19/2020 Z68.37 - Body mass index [BM I] 37.0-37.9, adult Telemedicine Establisted Patient with Miguel Holley MASTER MECHANIC 03/19/2020 Obesity due to excess calories Medical E stablished Patient with Miguel Holley MASTER MECHANIC 03/05/2020 Z68.37 - Body mass index [BM I] 37.0-37.9, adult Medical Established Patient with Miguel Holley MASTER MECHANIC 03/05/2020 Obesity due to excess calories Medical E stablished Patient with Poly Salvador MASTER MECHANIC 12/05/2019 R21 - Rash and other nonspec [facility] skin eruption Medical Established Patient with Poly Salvador MASTER MECHANIC 12/05/2019 Z68.35 - Body mass index (BM I) 35.0-35.9, adult Medical Established Patient with Poly Salvador MASTER MECHANIC 12/05/2019 Obesity due to excess calories Medical E stablished Patient with Poly Salvador MASTER MECHANIC 11/06/2019 Z68.36 - Body mass index (BM I) 36.0-36.9, adult Medical Established Patient with Poly Salvador MASTER MECHANIC 11/06/2019 Obesity due to excess calories Medical E stablished Patient with Poly Salvador MASTER MECHANIC 10/12/2019 Z68.38 - Body mass index (BM I) 38.0-38.9, adult Medical Established Patient with Poly Franco [facility] 10/12/2019 L25.5 - Unspecified contact dermatitis due to plants, except food Medical Established Patient with Poly Franco MASTER MECHANIC 09/14/2019 Obesity due to excess calories Medical E stablished Patient with Poly Franco [facility] 09/14/2019 Z68.37 - Body mass index (BM I) 37.0-37.9, adult Medical Established Patient with Poly Franco [facility] 09/14/2019 L25.5 - Unspecified contact dermatitis due to plants, except food Telemedicine with Poly Franco [facility] 09/11/2019 Obesity due to excess calories Telemedicine with Poly Franco [facility] 09/11/2019 Z68.37 - Body mass index (BM I) 37.0-37.9, adult Telemedicine with Poly Franco [facility] 09/11/2019 Dermatitis due to contact wi th poison spencer Telemedicine with Poly Franco [facility] 09/05/2019 Obesity due to excess calories Telemedicine with Poly Franco [facility] 09/05/2019 Z68.37 - Body mass index (BM I) 37.0-37.9, adult Telemedicine with Poly Franco [facility] 09/05/2019 Obesity due to excess calories Medical E stablished Patient with Miguel Holley [facility] 08/17/2019 Z68.37 - Body mass index (BM I) 37.0-37.9, adult Medical Established Patient with Miguel Holley [facility] 08/17/2019 Generalized anxiety disorder BH Establis hed Patient with Anh VIDAL 07/06/2019 Anxiety disorder NOS Medical New Patient with Allyson Floyd MASTER MECHANIC 07/06/2019 Depression Medical New Patient with Allyson Everett MASTER MECHANIC 07/06/2019 Diabetes Risk Test Score was one score Medical New Patient with Allyson Everett MASTER MECHANIC 07/06/2019 Idiopathic insomnia Medical New Patient with Allyson Everett MASTER MECHANIC 07/06/2019 Obesity due to excess calories Medical N ew Patient with Allyson Oakley MASTER MECHANIC 07/06/2019 Z68.39 - Body mass index (BM I) 39.0-39.9 adult Medical New Patient with Allyson Everett MASTER MECHANIC 07/06/2019 Diagnosis COVID-19 Fatty liver Other chronic nonalcoholic liver disease Diagnosis Encounter for intrauterine device placement Encounter for insertion of intrauterine contraceptive device Instructions Instructions not supported for this document type No Instructions Recorded Instructions not supported for this document type No Instructions Recorded Instructions not supported for this document type No Instructions Recorded Instructions not supported for this document type No Instructions Recorded Instructions not supported for this document type No Instructions Recorded Instructions not supported for this document type No Instructions Recorded Instructions not supported for this document type No Instructions Recorded Instructions not supported for this document type No Instructions Recorded Instructions not supported for this document type No Instructions Recorded Instructions not supported for this document type No Instructions Recorded Instructions not supported for this document type No Instructions Recorded Instructions not supported for this document type No Instructions Recorded Instructions not supported for this document type No Instructions Recorded Instructions not supported for this document type No Instructions Recorded Instructions not supported for this document type No Instructions Recorded History of Present Illness History of Present Illness not supported for this document type No History of Present Illness Recorded History of Present Illness not supported for this document type No History of Present Illness Recorded History of Present Illness not supported for this document type No History of Present Illness Recorded History of Present Illness not supported for this document type No History of Present Illness Recorded History of Present Illness not supported for this document type No History of Present Illness Recorded History of Present Illness not supported for this document type No History of Present Illness Recorded History of Present Illness not supported for this document type No History of Present Illness Recorded History of Present Illness not supported for this document type No History of Present Illness Recorded History of Present Illness not supported for this document type No History of Present Illness Recorded History of Present Illness not supported for this document type No History of Present Illness Recorded History of Present Illness not supported for this document type No History of Present Illness Recorded History of Present Illness not supported for this document type No History of Present Illness Recorded History of Present Illness not supported for this document type No History of Present Illness Recorded History of Present Illness not supported for this document type No History of Present Illness Recorded History of Present Illness not supported for this document type No History of Present Illness Recorded Review of System Review of Systems not supported for this document type No Review of Systems Recorded Review of Systems not supported for this document type No Review of Systems Recorded Review of Systems not supported for this document type No Review of Systems Recorded Review of Systems not supported for this document type No Review of Systems Recorded Review of Systems not supported for this document type No Review of Systems Recorded Review of Systems not supported for this document type No Review of Systems Recorded Review of Systems not supported for this document type No Review of Systems Recorded Review of Systems not supported for this document type No Review of Systems Recorded Review of Systems not supported for this document type No Review of Systems Recorded Review of Systems not supported for this document type No Review of Systems Recorded Review of Systems not supported for this document type No Review of Systems Recorded Review of Systems not supported for this document type No Review of Systems Recorded Review of Systems not supported for this document type No Review of Systems Recorded Review of Systems not supported for this document type No Review of Systems Recorded Review of Systems not supported for this document type No Review of Systems Recorded Physical Exam Physical Exam not supported for this document type No Physical Exam Recorded Physical Exam not supported for this document type No Physical Exam Recorded Physical Exam not supported for this document type No Physical Exam Recorded Physical Exam not supported for this document type No Physical Exam Recorded Physical Exam not supported for this document type No Physical Exam Recorded Physical Exam not supported for this document type No Physical Exam Recorded Physical Exam not supported for this document type No Physical Exam Recorded Physical Exam not supported for this document type No Physical Exam Recorded Physical Exam not supported for this document type No Physical Exam Recorded Physical Exam not supported for this document type No Physical Exam Recorded Physical Exam not supported for this document type No Physical Exam Recorded Physical Exam not supported for this document type No Physical Exam Recorded Physical Exam not supported for this document type No Physical Exam Recorded Physical Exam not supported for this document type No Physical Exam Recorded Physical Exam not supported for this document type No Physical Exam Recorded Physical Exam not supported for this document type No Physical Exam Recorded Physical Exam not supported for this document type No Physical Exam Recorded Physical Exam not supported for this document type No Physical Exam Recorded Physical Exam not supported for this document type No Physical Exam Recorded Discharge Instructions * Instructions* Ninoska Lopes PA-C - 04/08/2020 Call to arrange follow-up with primary care for further evaluation. If you go home develop worsening symptoms do not hesitate to return to the emergency room. * Attachments The following attachments cannot be sent through Care Everywhere. * Coronavirus Disease (COVID-19): General Info (Panamanian) documented in this encounter Additional Source Comments INFORMATION SOURCE (unrecogn ized section and content) DATE CREATED AUTHOR 11/24/2017 [facility] DATE CREATED AUTHOR AUTHOR'S ORGANIZ ATION 08/26/2018 [facility] DATE CREATED AUTHOR AUTHOR'S ORGANIZ ATION 09/24/2020 [facility] DATE CREATED AUTHOR AUTHOR'S ORGANIZ ATION 05/14/2023 [facility] DATE CREATED AUTHOR AUTHOR'S ORGANIZ ATION 06/12/2023 [facility] EPIC Evaluations & Outcomes (unre cognized section and content) Includes: Evaluations & Outcomes for active GoalsNo Outcomes Recorded Includes: Evaluations & Outcomes for active GoalsNo Outcomes Recorded Includes: Evaluations & Outcomes for active GoalsNo Outcomes Recorded Includes: Evaluations & Outcomes for active GoalsNo Outcomes Recorded Includes: Evaluations & Outcomes for active GoalsNo Outcomes Recorded Includes: Evaluations & Outcomes for active GoalsNo Outcomes Recorded Includes: Evaluations & Outcomes for active GoalsNo Outcomes Recorded Includes: Evaluations & Outcomes for active GoalsNo Outcomes Recorded Includes: Evaluations & Outcomes for active GoalsNo Outcomes Recorded Includes: Evaluations & Outcomes for active GoalsNo Outcomes Recorded Includes: Evaluations & Outcomes for active GoalsNo Outcomes Recorded Includes: Evaluations & Outcomes for active GoalsNo Outcomes Recorded Includes: Evaluations & Outcomes for active GoalsNo Outcomes Recorded Includes: Evaluations & Outcomes for active GoalsNo Outcomes Recorded Includes: Evaluations & Outcomes for active GoalsNo Outcomes Recorded Medical History (unrecognize d section and content) Description Not currently nursing 11/06/2019 Not 11/06/2019 No reported medical history or no signif icant history 07/06/2019 Reason for Visit (unrecogniz ed section and content) Reason Comments Hemoptysis patient states that she start to cough blood yesterday and has 5-6 times today Chest Pain Status Reason Specialty Diagnoses / Procedures Referre d By Contact Referred To Contact [facility] Diagnoses Encounter for insertion of intrauterine contraceptive device Procedures HC US TRANSVAGINAL, NON OB Dana Akins MD [address] [place] [id number] [facility] Ultrasound [address] [place] [address] Reason Comments Emesis multiple episodes si nce 1999 Diarrhea x12-13 since 1999 Abdominal Pain mid upper abd Ordered Prescriptions (unrec ognized section and content) Prescription Sig Dispensed Refills Start Date End Da te cephALEXin (KEFLEX) 500 MG capsule Take 1 capsule by mouth 3 times daily for 7 days 21 capsule 0 10/15/2020 10/22/2020 promethazine (PHENERGAN) 25 MG tablet Take 1 tablet by mouth every 8 hours as needed for Nausea 21 tablet 0 10/15/2020 10/22/2020 HYDROcodone-acetaminoph en (NORCO) 5-325 MG per tabletIndications:Gener alized abdominal pain Take 1 tablet by mouth every 6 hours as needed for Pain for up to 3 days. Intended supply: 3 days. Take lowest dose possible to manage pain 12 tablet 0 10/15/2020 10/18/2020 Scheduled Active and Recently Administ ered Medications (unrecognized section and content) Medication Order 10/13/2020 10/14/2020 10/15/2020 0.9 % sodium chloride bolus (COMPLETED) 1,000 mL, Intravenous, at 1,000 mL/hr, Administer over 1 Hours, ONCE, On Wed10/14/20 at 2345, For 1 dose 0005 (New Bag - Prov ider: Erica Garcia RN)0111 (Stopped - Provider: Erica Garcia RN) hydrocodone-acetaminophen (NORCO) tablet 5-325 mg (STARTER PACK) This order is for a take home starter pack of medication. Please document Not Given with a reason of other on the MAR along with a comment of sent home with patient. 0329 (Not Given - Pr ovider: Maricruz Leonardo RN - Reason: Other - Comment: given to take at home) morphine injection 4 mg (COMPLETED) 4 mg, Intravenous, ONCE, On Wed10/14/20 at 2345, For 1 dose, If oral and IV narcotics ordered, use oral first and only use IV if oral is ineffective or cannot take oral. Do Not give oral and IV within 1 hour of each other unless specifically ordered. 0005 (Given - Provid er: Erica Garcia RN) morphine injection 4 mg (COMPLETED) 4 mg, Intravenous, ONCE, On Wed10/15/20 at 0100, For 1 dose, If oral and IV narcotics ordered, use oral first and only use IV if oral is ineffective or cannot take oral. Do Not give oral and IV within 1 hour of each other unless specifically ordered. 0056 (Given - Provid er: Erica Garcia RN) ondansetron (ZOFRAN) injection 4 mg (COMPLETED) 4 mg, Intravenous, ONCE, On Wed10/14/20 at 2345, For 1 dose 0005 (Given - Provid er: Erica Garcia RN) ondansetron (ZOFRAN-ODT) disintegrating tablet 16 mg 16 mg, Oral, ONCE, On Wed10/15/20 at 0330, For 1 dose 0329 (Not Given - Pr ovider: Maricruz Leonardo RN - Reason: Other - Comment: given to take at home) promethazine (PHENERGAN) injection 12.5 mg (COMPLETED) 12.5 mg, Intravenous, ONCE, On Wed10/15/20 at 0100, For 1 dose, Recommended route is IM. For IV administration, dilute to 10ml with normal saline. Must be administered over at least 10 minutes. 0108 (Given - Provid er: Erica Garcia RN) PRN Medication Order 10/13/2020 10/14/2020 10/15/2020 iopamidol (ISOVUE-370) 76 % injection 75 mL (COMPLETED) 75 mL, Intravenous, IMG ONCE PRN, Other, Starting on Wed10/15/20 at 0120, For 1 dose 0126 (Given - Provid er: Lina Allen) Care Teams (unrecognized sec tion and content) Back Hoe Machine Operator Relationship Specialty Start Date End Date Miguel Holley APRN [facility] PCP - General Family Medicine 04/08/20 Back Hoe Machine Operator Relationship Specialty Start Date End Date 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 [facility] PCP - General Family Medicine 04/08/20 Back Hoe Machine Operator Relationship Specialty Start Date End Date 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 [facility] PCP - General Family Medicine 04/08/20 FOR RECORDS PERTAINING TO PATIENTS WHO ARE OR HAVE BEEN ENROLLED IN A CHEMICAL DEPENDENCY/SUBSTANCEABUSE PROGRAM, SOME INFORMATION MAY BE OMITTED. This clinical summary was aggregated from multiple sources. Caution should be exercised in using it in the provision of clinical care. This summary normalizes information from multiple sources, and as a consequence, information in this document may materially change the coding, format and clinical context of patient data. In addition, data may be omitted in some cases. CLINICAL DECISIONS SHOULD BE BASED ON THE PRIMARY CLINICAL RECORDS. [facility]. provides no warranty or guarantee of the accuracy or completeness of information in this document.
[2023-06-17 13:55] LABS: Basophils Percent Auto 0.3 % (0.2-2.0); Eosinophils Absolute Auto 0.1 10^3/uL (0.0-0.7); Eosinophils Percent Auto 0.8 % (0.9-7.0); Hematocrit 36.5 % (36.0-48.0); Hemoglobin 12.8 g/dL (12.0-16.0); Immature Granulocytes Abs Auto 0.04 10^3/uL (0.00-0.03); Immature Granulocytes Pct Auto 0.4 % (0.0-0.5); Lymphocytes Absolute Auto 1.3 10^3/uL (1.2-3.8); Lymphocytes Percent Auto 12.2 % (20.5-60.0); Mean Corpuscular HGB Conc 35.1 g/dL (29.9-35.2); Mean Corpuscular Hemoglobin 28.5 pg (26.7-34.0); Mean Corpuscular Volume 81.3 fL (81.0-99.0); Mean Platelet Volume 11.3 fL (9.5-13.5); Monocytes Absolute Auto 0.4 10^3/uL (0.3-0.8); Neutrophils Absolute Auto 8.9 10^3/uL (1.4-6.5); Neutrophils Percent Auto 82.3 % (43.0-75.0); Platelet Count 201 10^3/uL (150-450); Red Blood Count 4.49 10^6/uL (4.20-5.40); White Blood Count 10.9 10^3/uL (4.0-11.0)
[2023-06-17 14:00] LABS: BOX Test Sent Out Y
[2023-06-17 14:37] LABS: Thyroid Stimulating Hormone 1.216 uIU/mL (0.358-3.740)
[2023-06-17 14:38] LABS: Estimated Average Glucose 103 mg/dL; Glycohemoglobin A1C 5.2 % (4.5-6.2)
[2023-06-18 06:08] LABS: Rubella Antibodies, IgG 6.61 index (Immune >0.99)
[2023-06-18 07:09] LABS: HCV Ab Non Reactive (Non Reactive); HIV Ab/p24 Ag Screen Non Reactive (Non Reactive)
[2023-06-18 11:09] LABS: Rapid Plasma Reagin, Quant Non Reactive titer (NonRea<1:1)
[2023-06-18 13:09] LABS: HBsAg Screen Negative (Negative)
== END 2023-06-17 13:15 | disposition home or self-care (01) ==
LOC: LAB 13:18
PROVIDERS: Visit Provider Obstetrics & Gynecology
DX: N92.6 Irregular menstruation, unspecified (principal); Z36.0 Encounter for antenatal screening for chromosomal anomalies
CPT/HCPCS: 36415; 83036; 84443; 85025; 86592; 86762; 86803; 86850; 86900; 86901; 87340; 87389

== ENCOUNTER 2023-06-23 08:59 | Outpatient (OUT) | payer OTHER, SELFPAY ==
--- OUTSIDE RECORDS SUMMARY | 2023-06-23 09:06 | XMS_ITS | CCD ---
Author Name Unknown Address [address] [place] [address] Organization [facility] Care Team Providers Care Ecd Name Role Phone NO FAMILY PHYSICIAN, 837 Unavailable Unavail able FELIX GALVAN Unavailable Unavailable Miguel Holley Primary Care Provider Jackson Haas Primary Care Provider [phone] Miguel Holley Primary Care Provider Leydi Miguel M Primary Care Provider Leydi IVORY Miguel Primary Care Provider [phone] Leydi DEVELOPER PROGRAMMER ANALYST - FRAMING MANAGER, Miguel M Primary Care Provider LEYDI MIGUEL M Referring Unavailable LEYDI, MIGUEL M Primary Care Unavailable Leydi DEVELOPER PROGRAMMER ANALYST - FRAMING MANAGER, Miguel M Primary Care Provider Leydi DEVELOPER PROGRAMMER ANALYST - FRAMING MANAGER, Miguel M Primary Care Provider Shona Lucio Primary Care Physician Yeison Holley DEVELOPER PROGRAMMER ANALYST - FRAMING MANAGER, Miguel M Primary Care Provider Leydi DEVELOPER PROGRAMMER ANALYST - FRAMING MANAGER, Miguel M Primary Care Provider LEYDI, MIGUEL [...] Hour] Drug Allergy 03-05-20 20 Wellbutrin SR [facility] Work Phone: Corticosteroids (6 sources) Triamcinolone Drug Allergy 10-14-19 14 Other (See Comments) [facility] Lisdexamfetamine (1 source) Lisdexamfetamine Drug Allergy 10-04-19 21 Vyvanse [facility] Work Phone: Naltrexone (4 sources) Naltrexone; Translations: [Naltrexone HCl 50 MG Oral Tablet] Drug Allergy 03-05-20 20 Naltrexone HCl [facility] Work Phone: (1 source) Triamcinolone; Translations: [TRIAMCINOLONE ACETONIDE] Drug Allergy 10-12-19 15 [facility] Repository (16 sources) Triamcinolone; Translations: [Kenalog] Drug Allergy 07-06-19 20 [facility] Work Phone: (6 sources) Triamcinolone Drug Allergy 10-14-19 14 Other (See Comments) [facility]- [place], [place] (17 sources) Poison spencer Allergy to substance 07-20-19 [facility] Work Phone: (3 sources) buPROPion; Translations: [Wellbutrin SR 100 MG Oral Tablet Extended Release 12 Hour] Drug Allergy 03-05-20 20 Wellbutrin SR [facility] Work Phone: (3 sources) Naltrexone; Translations: [Naltrexone HCl 50 MG Oral Tablet] Drug Allergy 03-05-20 20 Naltrexone HCl [facility] Work Phone: Medications Current Medications Medication Drug [...] daily. 118 mL 1 12/17/2016 Active levonorgestrel 0.627267 mg/hr intrauterine system (17 sources) Progestin, Progestin-contai [...] 05-12-2023 HCG, Quant 9701.0 mIU/mL High <5 [facility] Comment on above: Result Comment: Non-preg premeno <=5 Postmeno <=8 Male <=3 If HCG results do not concur with clinical observations, additional testing to confirm results is recommended. Performed By: #### B HCG #### [facility] [address] [place] [address] [place] [address] Physician'S Assistant: Mateusz Brand MD HCG, Quanton 05-07-2023 HCG, Quant 3514.0 mIU/mL High <5 [facility] Comment on above: Result Comment: Non-preg premeno <=5 Postmeno <=8 Male <=3 If HCG results do not concur with clinical observations, additional testing to confirm results is recommended. Performed By: #### B HCG #### [facility] [address] [place] [address] [place] [address] Physician'S Assistant: Mateusz Brand MD HCG, [place] 05-05-2023 HCG, Quant 2224.0 mIU/mL High <5 [facility] Comment on above: Result Comment: Non-preg premeno <=5 Postmeno <=8 Male <=3 If HCG results do not concur with clinical observations, additional testing to confirm results is recommended. Performed By: #### B HCG #### [facility] [address] [place] [address] Physician'S Assistant: Mateusz Brand MD US PELVIS COMPLETE NON-OB [...] Yousif Lamb MD 03/25/23 Final result Normal [facility] CBC with Diffon 03-24-2023 Abs. Basophil 0.06 k/uL Normal 0.00-0.20 [facility] Comment on above: Performed By: #### [facility] #### [address] [place], [place] [address] Physician'S Assistant: Mateusz Brand MD Abs.Imm.Granulocyte 0.03 k/uL Normal 0.00-0.30 [facility] Comment on above: Performed By: #### [facility] #### [address] [place], [place] [address] Physician'S Assistant: Mateusz Brand MD Abs.Neutrophil (Seg) 7.07 k/uL Normal 1.50-8.10 [facility] Comment on above: Performed By: #### [facility] #### [address] [place], [place] [address] Physician'S Assistant: Mateusz Brand MD Basophils/100 WBC (Bld) 1 % Normal 0-2 [facility] Comment on above: Performed By: #### C TJ [facility] #### [address] [place], [place] [address] Physician'S Assistant: Mateusz Brand MD Eosinophils (Bld) [#/Vol] 0.13 10*3/uL Normal 0.00-0.44 [facility] Comment on above: Performed By: #### C TJ Marisa[facility] #### [address] [place], [facility] Physician'S Assistant: Mateusz Brand MD Eosinophils/100 WBC (Bld) 1 % Normal 1-4 [facility] Comment on above: Performed By: #### [facility] #### [address] [place], [facility] Physician'S Assistant: Mateusz Brand MD Erythrocyte distribution width (RBC) [Ratio] 11.9 % Normal 11.8-14.4 [facility] Comment on above: Performed By: #### C TJ, CG #### [facility] [address] [place] [address] Physician'S Assistant: Mateusz Brand MD Hematocrit (Bld) [Volume fraction] 37.8 % Normal 36.3-47.1 [facility] Comment on above: Performed By: #### C TJ, CG #### [address] [place] [place] [address] Physician'S Assistant: Mateusz Brand MD Hemoglobin (Bld) [Mass/Vol] 13.3 g/dL Normal 11.9-15.1 [facility] Comment on above: Performed By: #### C TJ, BHCG #### [address] [place] [address] Physician'S Assistant: Mateusz Brand MD Immature granulocytes/100 WBC (Bld) 0 % Normal 0 [facility] Comment on above: Performed By: #### [facility] #### [address] [place] [address] Physician'S Assistant: Mateusz Brand MD Lymphocytes (Bld) [#/Vol] 3.03 10*3/uL Normal 1.10-3.70 [facility] Comment on above: Performed By: #### C TJ CG #### [address] [place], [facility] Physician'S Assistant: Mateusz Brand MD Lymphocytes/100 WBC (Bld) 28 % Normal 24-43 [facility] Comment on above: Performed By: #### C TJ, CG #### [address] [place] [address] Physician'S Assistant: Mateusz Brand MD MCH (RBC) [Entitic mass] 28.6 pg Normal 25.2-33.5 [facility] Comment on above: Performed By: #### C TJ, CG #### [address] [place], [facility] Physician'S Assistant: Mateusz Brand MD MCHC (RBC) [Mass/Vol] 35.2 g/dL High 28.4-34.8 [facility] Comment on above: Performed By: #### C TJ, BHCG #### [address] [place], [place] [address] Physician'S Assistant: Mateusz Brand MD MCV (RBC) [Entitic vol] 81.3 fL Low 82.6-102.9 [facility] Comment on above: Performed By: #### C TJ CG #### [address] [place] [address] Physician'S Assistant: Mateusz Brand MD Monocytes (Bld) [#/Vol] 0.60 10*3/uL Normal 0.10-1.20 [facility] Comment on above: Performed By: #### [facility] #### [address] [place], [place] [address] Physician'S Assistant: Mateusz Brand MD Monocytes/100 WBC (Bld) 6 % Normal 3-12 [facility] Comment on above: Performed By: #### C TJ CG #### [address] [place], [place] [address] Physician'S Assistant: Mateusz Brand MD Neutrophil (Seg) 64 % Normal 36-65 [facility] Comment on above: Performed By: #### C JT CG #### [address] [place] [address] Physician'S Assistant: Mateusz Brand MD NRBC Automated 0.0 per 100 WBC Normal 0.0 [facility] Comment on above: Performed By: #### C TJ BHCG #### [address] [place] [id number] Physician'S Assistant: Mateusz Brand MD Platelet mean volume (Bld) [Entitic vol] 10.6 fL Normal 8.1-13.5 [facility] Comment on above: Performed By: #### C DP, BHCG #### [facility] [address] [place], [place] [address] Physician'S Assistant: Mateusz Brand MD Platelets (Bld) [#/Vol] 231 10*3/uL Normal 138-453 [facility] Comment on above: Performed By: #### C TJ, BHCG #### [facility] [address] [place] [address] Physician'S Assistant: Mateusz Brand MD RBC (Bld) [#/Vol] 4.65 10*6/uL Normal 3.95-5.11 [facility] Comment on above: Performed By: #### C TJ, BHCG #### [facility] [address] [place] [address] Dr. [place], [place] [address] Physician'S Assistant: Mateusz Brand MD WBC (Bld) [#/Vol] 10.9 10*3/uL Normal 3.5-11.3 [facility] Comment on above: Performed By: #### C DP, BHCG #### [address] [place], [place] [address] Physician'S Assistant: Mateusz Brand MD HCG, Quanton 03-24-2023 HCG, Quant <1.0 Normal <5 [facility] Comment on above: Result Comment: Non-preg premeno <=5 Postmeno <=8 Male <=3 If HCG results do not concur with clinical observations, additional testing to confirm results is recommended. Performed By: #### C DP, BHCG #### [facility] [address] [place], [place] [id number] Physician'S Assistant: Mateusz Brand MD HCG, ,Urineon 01-20 Beta HCG ( test) Ql (U) Negative Normal NEG [facility] Comment on above: Result Comment: Spec imens with hCG levels near the threshold of the test (25 mIU/mL) may give a negative or indeterminate result. In such cases, another test should be performed with a new specimen in 48-72 hours. If early is suspected clinically in this setting, correlation with quantitative serum b-hCG level is suggested. [facility] has confirmed the use of plasma for this test. This has not been cleared or approved by the U.S. Food and Drug Administration. The FDA has determined that such clearance is not necessary. Performed By: #### U HCG #### [facility] [address] [place] [address] [place] [address] Physician'S Assistant: Mateusz Brand MD OPERATIVE REPORTon 3 OPERATIVE REPORT [address] [address] OPERATIVE REPORT PATIENT NAME: ESTEFANIA FLOREZ : 1995 MED REC NO: [id number] ROOM: ACCOUNT NO: [id number] ADMIT DATE: 01/20/2023 PROVIDER: Vickie Nichols MD [...] cervix in a graduated fashion to #14 Hungarian with Adeel dilators. Then, the hysteroscope was [...] good condition. VICKIE NICHOLS MD BIBIANA/[id number] Doc#: [id number] CC: Normal [facility] Cytologyon 01-01-2023 Cytology (NOTE) Path Number: [id number] DIAGNOSIS Imaged ThinPrep Pap - Cervical (1 [...] Abnormal Clinical History Intrauterine device Z01.419 Routine electrical timing device calibrator exam without abnormal findings High risk HPV DNA testing is requested if the diagnosis is abnormal Processing Lab: [address] [id number] Interpretation performed at [address] [address] This Pap Test has been evaluated with [...] GYNECOLOGIC CYTOLOGY REPORT Patient [facility]: [facility] [id number] [facility] [employer] [facility] ANATOMIC PATHOLOGY [address] [place] [address]. [place], [place] [id number] Normal [facility] C-Reactive Proteinon 022 CRP [Mass/Vol] mg/L 0 - 5 mg/L [facility] CBC with Auto Differentialon 12-16-2021 Absolute Eos # 0.09 [facility] Absolute Immature Granulocyte 0.04 [facility] Absolute Lymph # 2.98 [facility] Absolute Randolph # 0.51 [facility] Basophils (Bld) [#/Vol] 0.04 10*3/uL [facility] Basophils/100 WBC (Bld) 0 % 0 - 2 % [facility] Eosinophils/100 WBC (Bld) 1 % 1 - 4 % [facility] Hematocrit (Bld) [Volume fraction] 39.6 % 36.3 - 47.1 % [facility] Hemoglobin (Bld) [Mass/Vol] 13.1 g/dL 11.9 - 15.1 g/dL [facility] Immature granulocytes/100 WBC (Bld) 0 % 0 [facility] Lymphocytes/100 WBC (Bld) 33 % 24 - 43 % [facility] MCH (RBC) [Entitic mass] 28.2 pg 25.2 - 33.5 pg [facility] MCHC (RBC) [Mass/Vol] 33.1 g/dL 28.4 - 34.8 g/dL [facility] MCV (RBC) [Entitic vol] 85.3 fL 82.6 - 102.9 fL [facility] Monocytes/100 WBC (Bld) 6 % 3 - 12 % [facility] NRBC Automated 0.0 0.0 per 100 WBC [facility] Platelet distribution width (Bld) [Ratio] 12.0 % 11.8 - 14.4 % [facility] Platelet mean volume (Bld) [Entitic vol] 11.1 fL 8.1 - 13.5 fL [facility] Platelets (Bld) [#/Vol] 214 10*3/uL [facility] RBC (Bld) [#/Vol] 4.64 10*6/uL 3.95 - 5.1 1 m/uL [facility] Segmented neutrophils/100 WBC (Bld) 60 % 36 - 65 % [facility] Segs Absolute 5.49 [facility] WBC (Bld) [#/Vol] 9.2 10*3/uL [facility] Rheumatoid Factoron 12-17-19 22 Rheumatoid Factor <10 [facility]INF [facility] [email or web address] [facility] [employer] Sedimentation Rateon 022 Sed Rate [address] [facility] [employer] Uric Acidon 12-16-2021 Urate [Mass/Vol] 4.2 mg/dL 2.4 - 5.7 mg/dL [facility] [employer] [facility] [employer] Basic Metabolic Panel w/ Ref yossi to MGOrdered By: Donny Hatfield on 10-15-2020 Anion gap [Moles/Vol] 13 mmol/L 9 - 17 mmol/L [employer] Phone: Calcium [Mass/Vol] 9.6 mg/dL 8.6 - 10. 4 mg/dL [employer] Phone: Chloride [Moles/Vol] 105 mmol/L 98 - 10 7 mmol/L [employer] Phone: CO2 [Moles/Vol] 22 mmol/L 20 - 31 mmol/L [employer] Phone: Creatinine [Mass/Vol] 0.62 mg/dL 0.50 - 0.90 mg/dL [employer] Phone: GFR >60 >60 mL/min [employer] Phone: GFR Non- >60 >60 mL/min [employer] Phone: Glucose [Mass/Vol] 110 mg/dL High 70 - 99 mg/dL [employer] Phone: Interpretation and review of laboratory results Abnormal [employer] Phone: Potassium [Moles/Vol] 3.5 mmol/L Low 3.7 - 5.3 mmol/L [employer] Phone: Sodium [Moles/Vol] 140 mmol/L 135 - 144 mmol/L [employer] Phone: Urea nitrogen (BldV) [Mass/Vol] 12 mg/dL 6 - 20 mg/dL [employer] Phone: Urea nitrogen/Creatinine (Bld) [Mass ratio] 19 [employer] Phone: [employer] Phone: CBC Auto DifferentialOrdered By: Donny Hatfield on 10-15-2020 Absolute Eos # 0.19 [employer] Phone: Absolute Immature Granulocyte 0.06 [employer] Phone: Absolute Lymph # 2.50 [employer] Phone: Absolute Randolph # 0.75 [employer] Phone: Basophils (Bld) [#/Vol] 0.04 10*3/uL [employer] Phone: Basophils/100 WBC (Bld) 0 % 0 - 2 % [employer] Phone: Differential Type NOT REPORTED [employer] Phone: [phone] Eosinophils/100 WBC (Bld) 1 % 1 - 4 % [employer] Phone: Hematocrit (Bld) [Volume fraction] 42.1 % 36.3 - 47.1 % [employer] Phone: Hemoglobin.gastrointes tinal spec 1 Ql (Stl) 14.0 g/dL 11.9 - 15.1 g/dL [employer] Phone: Immature granulocytes/100 WBC (Bld) 0 % 0 [employer] Phone: Interpretation and review of laboratory results Abnormal [employer] Phone: Lymphocytes/100 WBC (Bld) 14 % Low 24 - 43 % [employer] Phone: MCH (RBC) [Entitic mass] 28.1 pg 25.2 - 33.5 pg [employer] Phone: MCHC (RBC) [Mass/Vol] 33.3 g/dL 28.4 - 34.8 g/dL [employer] Phone: MCV (RBC) [Entitic vol] 84.4 fL 82.6 - 102.9 fL [employer] Phone: Monocytes/100 WBC (Bld) 4 % 3 - 12 % [employer] Phone: NRBC Automated 0.0 0.0 per 100 WBC [employer] Phone: Platelet distribution width (Bld) [Ratio] 11.9 % 11.8 - 14.4 % [employer] Phone: Platelet Estimate NOT REPORTED [employer] Phone: Platelet mean volume (Bld) [Entitic vol] 10.7 fL 8.1 - 13.5 fL [employer] Phone: Platelets (Bld) [#/Vol] 220 10*3/uL [employer] Phone: RBC (Bld) [#/Vol] 4.99 10*6/uL 3.95 - 5.1 1 m/uL [employer] Phone: RBC (Bld) [#/Vol] NOT REPORTED [employer] Phone: [phone] Segmented neutrophils/100 WBC (Bld) 81 % High 36 - 65 % [employer] Phone: Segs Absolute 14.20 High [employer] Phone: WBC (Bld) [#/Vol] 17.7 10*3/uL High [employer] Phone: WBC (Bld) [#/Vol] NOT REPORTED [employer] Phone: [phone] [employer] Phone: CT ABDOMEN PELVIS W IV CONTR AST Additional Contrast? NoneOrdered By: Donny Hatfield on 10-15-2020 1. Marked hepatic steatosis. 2. Hepatomegaly. 3. Mild colonic diverticulosis without evidence of diverticulitis. [employer] Phone: EXAMINATION: CT OF T HE ABDOMEN [...] subcutaneous soft tissues are unremarkable in appearance. [employer] Phone: Jean Marie, pn Incoming Radiant Results From [employer] - 10/15/2020 1:48 AM EDT EXAMINATION: CT [...] COMPARISON: None. HISTORY: ORDERING SYSTEM PROVIDED HISTORY: [facility] pain TECHNOLOGIST PROVIDED HISTORY: [facility] pain Decision Support Exception - unselect if [...] Mild colonic diverticulosis without evidence of diverticulitis. [employer] Phone: [employer] Phone: HCG Qualitative, SerumOrdere d By: Donny Hatfield on 10-15-2020 hCG Qual Negative NEGATIVE [employer] Phone: Comment on above: Specimens with hCG l evels near the threshold of the test (25 mIU/mL) may give a negative or indeterminate result. In such cases, another test should be performed with a new specimen in 48-72 hours. If early is suspected clinically in this setting, correlation with quantitative serum b-hCG level is suggested. [employer] has confirmed the use of plasma for this test. This has not been cleared or approved by the U.S. Food and Drug Administration. The FDA has determined that such clearance is not necessary. [employer] Phone: Hepatic Function PanelOrdere d By: Donny Hatfield on 10-15-2020 Albumin [Mass/Vol] 4.6 g/dL 3.5 - 5.2 g/dL [employer] Phone: Albumin/Globulin [Mass ratio] 1.6 {ratio} [employer] Phone: ALP (Bld) [Catalytic activity/Vol] 59 U/L 35 - 104 U/L [employer] Phone: ALT [Catalytic activity/Vol] 38 U/L High 5 - 33 U/L [employer] Phone: AST [Catalytic activity/Vol] 24 U/L <32 [employer] Phone: Bilirubin [Mass/Vol] 0.48 mg/dL 0.3 - 1 .2 mg/dL [employer] Phone: Bilirubin, Indirect CANNOT BE CALCULATED 0.00 - 1.00 mg/dL [employer] Phone: Bilirubin.indirect [Mass/Vol] mg/dL <0.31 mg/dL [employer] Phone: Free PSA/Total PSA [Mass fraction] 7.4 g/dL 6.4 - 8.3 g/dL [employer] Phone: Globulin NOT REPORTED 1.5 - 3.8 g/dL [employer] Phone: Interpretation and review of laboratory results Abnormal [employer] Phone: Laboratory - Chemistry and C hemistry - challengeOrdered By: Donny Hatfield on 10-15-2020 GFR/1.73 sq M.predicted MDRD (S/P/Bld) [Vol rate/Area] [employer] Phone: Comment on above: Average GFR for 20-2 9 years old: 116 mL/min/1.73sq m Chronic Kidney Disease: <60 mL/min/1.73sq m Kidney failure: <15 mL/min/1.73sq m eGFR calculated using average adult body mass. Additional eGFR calculator available at: http://www.[employer]/multiple_crcl_2012.htm Stage 1: Some kidney damage normal GFR Stage 2: Mild kidney damage GFR 60-89 Stage 3: Moderate kidney damage GFR 30-59 Stage 4: Severe kidney damage GFR 15-29 Stage 5: Severe kidney damage GFR <15 ESRD - chronic treatment by dialysis or transplant Lactic Acid, PlasmaOrdered B y: Donny Hatfield on 10-15-2020 Lactate [Moles/Vol] 1.1 mmol/L 0.5 - 2. 2 mmol/L [employer] Phone: Lactic Acid, Whole Blood NOT REPORTED 0.7 - 2.1 mmol/L [employer] Phone: [employer] Phone: LipaseOrdered By: Cuco on 10-15-2020 Lipase [Catalytic activity/Vol] 27 U/L 13 - 60 U/L [employer] Phone: MagnesiumOrdered By: Donny Hatfield on 10-15-2020 Magnesium [Mass/Vol] 1.8 mg/dL 1.6 - 2 .6 mg/dL [employer] Phone: [employer] Phone: Microscopic UrinalysisOrdere d By: Donny Hatfield on 10-15-2020 - [employer] Phone: Amorphous, UA NOT REPORTED None [employer] Phone: Bacteria, UA 1+ Abnormal None [employer] Phone: Casts UA NOT REPORTED /LPF [facility] Work Phone: Crystals, UA NOT REPORTED None /HPF [facility] Work Phone: Epithelial Cells UA 2 TO 5 [facility] Work Phone: Interpretation and review of laboratory results Abnormal [facility] Work Phone: Mucus, UA 1+ Abnormal None [facility] Work Phone: Other Observations UA NOT REPORTED NOT REQ. M [facility] [place] Work Phone: RBC, UA 2 TO 5 [facility] Work Phone: Renal Epithelial, UA NOT REPORTED 0 /HPF Me [facility] [place] Work Phone: Trichomonas, UA NOT REPORTED None [employer] Phone: WBC, UA 0 TO 2 [facility] Work Phone: Yeast, UA NOT REPORTED None [facility] Work Phone: [facility] Work Phone: No Panel InformationOrdered By: Donny Hatfield on 10-15-2020 [employer] Phone: Urinalysis Reflex to Culture Ordered By: Donny Hatfield on 10-15-2020 Bilirubin Urine Negative NEGATIVE [employer] Phone: Color, UA YELLOW YELLOW [facility] Work Phone: Glucose, Ur Negative NEGATIVE [employer] Phone: Interpretation and review of laboratory results Abnormal [employer] Phone: Ketones Ql (U) Negative NEGATIVE [facility] Work Phone: Leukocyte esterase Test strip Ql (U) Negative NEGATIVE [employer] Phone: Nitrite, Urine Negative NEGATIVE [facility] Work Phone: pH, UA 5.0 [facility] Phone: Protein, UA Negative NEGATIVE [facility] Phone: Specific Howard, UA 1.010 [facility] [place] Work Phone: Turbidity UA CLEAR CLEAR [facility] Work Phone: Urinalysis Comments NOT REPORTED [facility] [place] Work Phone: Urine Hgb 2+ Abnormal NEGATIVE [facility] Phone: Urobilinogen, Urine Normal Normal [facility] [employer] Phone: [facility]: Comp Metabolic Profon 2020 (cont.) Normal [facility] Comment on above: Result Comment: Aver age GFR for 20-29 years old: 116 mL/min/1.73sq m Chronic Kidney Disease: <60 mL/min/1.73sq m Kidney failure: <15 mL/min/1.73sq m eGFR calculated using average adult body mass. Additional eGFR calculator available at: http://www.[employer].One Month/multiple_crcl_2011.htm Performed By: #### L IPRF, CDP, CP, TSHX #### [employer] [address] [place] [address] Physician'S Assistant: Chato Aguirre MD Albumin [Mass/Vol] 4.3 g/dL Normal 3.5-5.2 [facility] Comment on above: Performed By: #### L IPRF, CDP, CP, TSHX #### [employer] [address] [place] [address] Physician'S Assistant: Chato Aguirre MD Albumin/Glob Ratio 1.3 Normal 1.0-2.5 [facility] Comment on above: Performed By: #### L IPRF, CDP, CP, TSHX #### [employer] [address] [place] [address] Physician'S Assistant: Chato Aguirre MD Alkaline Phos 49 U/L Normal 35-104 [facility] Comment on above: Performed By: #### L IPRF, CDP, CP, TSHX #### [facility] [employer] [address] [place] [id number] Physician'S Assistant: Chato Aguirre MD ALT [Catalytic activity/Vol] 36 U/L High 5-33 [facility] Comment on above: Performed By: #### L IPRF, CDP, CP, TSHX #### [facility] [employer] [address] [place] [address] Physician'S Assistant: Chato Aguirre MD Anion gap [Moles/Vol] 11 mmol/L Normal 9-17 [facility] Comment on above: Performed By: #### L IPRF, CDP, CP, TSHX #### [facility] [employer] [address] [place] [address] Physician'S Assistant: Chato Aguirre MD AST [Catalytic activity/Vol] 27 U/L Normal <32 [facility] Comment on above: Performed By: #### L IPRF, CDP, CP, TSHX #### [facility] [employer] [address] [place] [address] Physician'S Assistant: Chato Aguirre MD Bilirubin [Mass/Vol] 0.34 mg/dL Normal 0.3-1.2 [facility] Comment on above: Performed By: #### L IPRF, CDP, CP, TSHX #### [facility] [employer] [address] [place] [address] Physician'S Assistant: Chato Aguirre MD Calcium [Mass/Vol] 9.5 mg/dL Normal 8.6-10.4 [facility] Comment on above: Performed By: #### L IPRF, CDP, CP, TSHX #### [facility] [employer] [address] [place] [address] Physician'S Assistant: Chato Aguirre MD Chloride [Moles/Vol] 102 mmol/L Normal 98-107 [facility] Comment on above: Performed By: #### L IPRF, CDP, CP, TSHX #### [facility] [employer] [address] [place] [address] Physician'S Assistant: Chato Aguirre MD CO2 [Moles/Vol] 22 mmol/L Normal 20-31 [facility] Comment on above: Performed By: #### L IPRF, CDP, CP, TSHX #### [facility] [employer] [address] [place] [address] Physician'S Assistant: Chato Aguirre MD Creatinine [Mass/Vol] 0.46 mg/dL Low 0.50-0.90 [facility] Comment on above: Performed By: #### L IPRF, CDP, CP, TSHX #### [address] [address] Physician'S Assistant: Chato Aguirre MD GFR, Amer >60 Normal >60 [facility] Comment on above: Performed By: #### L IPRF, CDP, CP, TSHX #### [facility] [employer] [address] [place] [address] Physician'S Assistant: Chato Aguirre MD GFR,non Amer >60 Normal >60 [facility] Comment on above: Performed By: #### L IPRF, CDP, CP, TSHX #### [facility] [employer] [address] [place] [address] Physician'S Assistant: Chato Aguirre MD Glucose [Mass/Vol] 92 mg/dL Normal 70-99 [facility] Comment on above: Performed By: #### L IPRF, CDP, CP, TSHX #### [facility] [employer] [address] [place] [address] Physician'S Assistant: Chato Aguirre MD Potassium [Moles/Vol] 4.2 mmol/L Normal 3.7-5.3 [facility] Comment on above: Performed By: #### L IPRF, CDP, CP, TSHX #### [employer] [address] [place] [address] Physician'S Assistant: Chato Aguirre MD Protein [Mass/Vol] 7.5 g/dL Normal 6.4-8.3 [facility] Comment on above: Performed By: #### L IPRF, CDP, CP, TSHX #### [employer] [address] [place] [address] Physician'S Assistant: Chato Aguirre MD Sodium [Moles/Vol] 135 mmol/L Normal 135-144 [facility] Comment on above: Performed By: #### L IPRF, CDP, CP, TSHX #### [employer] [address] [place] [address] Physician'S Assistant: Chato Aguirre MD Urea nitrogen [Mass/Vol] 11 mg/dL Normal 6-20 [facility] Comment on above: Performed By: #### L IPRF, CDP, CP, TSHX #### [employer] [address] [place] [address] Physician'S Assistant: Chato Aguirre MD Lipid Prof, Fastingon 2020 Cholesterol [Mass/Vol] 186 mg/dL Normal <200 [facility] Comment on above: Result Comment: Cholesterol Guidelines: <200 Desirable 200-240 Borderline >240 Undesirable Performed By: #### L IPRF, CDP, CP, TSHX #### [employer] [address] [place] [address] Physician'S Assistant: Chato Aguirre MD Cholesterol in HDL [Mass/Vol] 49 mg/dL Normal >40 [facility] Comment on above: Result Comment: HDL Guidelines: <40 Undesirable 40-59 Borderline >59 Desirable Performed By: #### L IPRF, CDP, CP, TSHX #### [employer] [address] [place] [address] Physician'S Assistant: Chato Aguirre MD Cholesterol in LDL [Mass/Vol] 102 mg/dL Normal 0-130 [facility] Comment on above: Result Comment: LDL Guidelines: <100 Desirable 100-129 Near to/above Desirable 130-159 Borderline >159 Undesirable Direct (measured) LDL and calculated LDL are not interchangeable tests. Performed By: #### L IPRF, CDP, CP, TSHX #### [employer] [address] [place] [address] [phone] Physician'S Assistant: Chato Aguirre MD Cholesterol.total/Chol esterol in HDL [Mass ratio] 3.8 {ratio} Normal <5 [facility] Comment on above: Performed By: #### L IPRF, CDP, CP, TSHX #### [facility] [address] [place] [address] [phone] Physician'S Assistant: Chato Aguirre MD Triglyceride,Fasting 173 mg/dL High <150 [facility] Comment on above: Result Comment: Triglyceride Guidelines: <150 Desirable 150-199 Borderline 200-499 High >499 Very high Based on AHA Guidelines for fasting triglyceride, February 2012. Performed By: #### L IPRF, CDP, CP, TSHX #### [facility] [address] [place] [address] Physician'S Assistant: Chato Aguirre MD TSH w/reflex to FT4on 2020 TSH Qn 3.38 m[IU]/L Normal 0.30-5.00 [facility] Comment on above: Performed By: #### L IPRF, CDP, CP, TSHX #### [employer] [address] [place] [address] Physician'S Assistant: Chato Aguirre MD CBC Auto DifferentialOrdered By: Miguel Holley on 09-23-2020 Absolute Eos # 0.14 [facility] Phone: Absolute Immature Granulocyte <0.03 [employer] Phone: Absolute Lymph # 2.71 [facility] Phone: Absolute Randolph # 0.48 [employer] Phone: Basophils (Bld) [#/Vol] 0.05 10*3/uL [employer] Phone: Basophils/100 WBC (Bld) 1 % 0 - 2 % [employer] Phone: Differential Type NOT REPORTED [employer] Phone: Eosinophils/100 WBC (Bld) 2 % 1 - 4 % [employer] Phone: Hematocrit (Bld) [Volume fraction] 42.9 % 36.3 - 47.1 % [employer] Phone: Hemoglobin.gastrointes tinal spec 1 Ql (Stl) 13.5 g/dL 11.9 - 15.1 g/dL [employer] Phone: Immature granulocytes/100 WBC (Bld) 0 % 0 [employer] Phone: [phone] Lymphocytes/100 WBC (Bld) 30 % 24 - 43 % [employer] Phone: MCH (RBC) [Entitic mass] 27.6 pg 25.2 - 33.5 pg [employer] Phone: MCHC (RBC) [Mass/Vol] 31.5 g/dL 28.4 - 34.8 g/dL [employer] Phone: MCV (RBC) [Entitic vol] 87.6 fL 82.6 - 102.9 fL [employer] Phone: Monocytes/100 WBC (Bld) 5 % 3 - 12 % [employer] Phone: NRBC Automated 0.0 0.0 per 100 WBC [employer] Phone: Platelet distribution width (Bld) [Ratio] 12.4 % 11.8 - 14.4 % [employer] Phone: Platelet Estimate NOT REPORTED [employer] Phone: Platelet mean volume (Bld) [Entitic vol] 11.6 fL 8.1 - 13.5 fL [employer] Phone: Platelets (Bld) [#/Vol] 246 10*3/uL [employer] Phone: RBC (Bld) [#/Vol] 4.90 10*6/uL 3.95 - 5.1 1 m/uL [employer] Phone: RBC (Bld) [#/Vol] NOT REPORTED [employer] Phone: Segmented neutrophils/100 WBC (Bld) 62 % 36 - 65 % [employer] Phone: Segs Absolute 5.79 [employer] Phone: WBC (Bld) [#/Vol] 9.2 10*3/uL [employer] Phone: WBC (Bld) [#/Vol] NOT REPORTED [employer] Phone: CBC with Diffon 09-23-2020 Abs. Basophil 0.05 k/uL Normal 0.00-0.20 [facility] Comment on above: Performed By: #### L IPRF, CDP, CP, TSHX #### [employer] [address] [place] [address] [phone] Physician'S Assistant: Chato Aguirre MD Abs.Imm.Granulocyte <0.03 Normal 0.00-0.30 [facility] Comment on above: Performed By: #### L IPRF, CDP, CP, TSHX #### [employer] [address] [place] [address] [phone] Physician'S Assistant: Chato Aguirre MD Abs.Neutrophil (Seg) 5.79 k/uL Normal 1.50-8.10 [facility] Comment on above: Performed By: #### L IPRF, CDP, CP, TSHX #### [address] [address] Physician'S Assistant: Chato Aguirre MD Basophils/100 WBC (Bld) 1 % Normal 0-2 [facility] Comment on above: Performed By: #### L IPRF, CDP, CP, TSHX #### [address] [address] Physician'S Assistant: Chato Aguirre MD Eosinophils (Bld) [#/Vol] 0.14 10*3/uL Normal 0.00-0.44 [facility] Comment on above: Performed By: #### L IPRF, CDP, CP, TSHX #### [address] [address] Physician'S Assistant: Chato Aguirre MD Eosinophils/100 WBC (Bld) 2 % Normal 1-4 [facility] Comment on above: Performed By: #### L IPRF, CDP, CP, TSHX #### [place] [address] Physician'S Assistant: Chato Aguirre MD Erythrocyte distribution width (RBC) [Ratio] 12.4 % Normal 11.8-14.4 [facility] Comment on above: Performed By: #### L IPRF, CDP, CP, TSHX #### [facility] [employer] [address] [place] [address] Physician'S Assistant: Chato Aguirre MD Hematocrit (Bld) [Volume fraction] 42.9 % Normal 36.3-47.1 [facility] Comment on above: Performed By: #### L IPRF, CDP, CP, TSHX #### [facility] [employer] [address] [place] [address]91 Physician'S Assistant: Chato Aguirre MD Hemoglobin (Bld) [Mass/Vol] 13.5 g/dL Normal 11.9-15.1 [facility] Comment on above: Performed By: #### L IPRF, CDP, CP, TSHX #### [address] [address] Physician'S Assistant: Chato Aguirre MD Immature granulocytes/100 WBC (Bld) 0 % Normal 0 [facility] Comment on above: Performed By: #### L IPRF, CDP, CP, TSHX #### [place] [address] Physician'S Assistant: Chato Aguirre MD Lymphocytes (Bld) [#/Vol] 2.71 10*3/uL Normal 1.10-3.70 [facility] Comment on above: Performed By: #### L IPRF, CDP, CP, TSHX #### [place] [address] Physician'S Assistant: Chato Aguirre MD Lymphocytes/100 WBC (Bld) 30 % Normal 24-43 [facility] Comment on above: Performed By: #### L IPRF, CDP, CP, TSHX #### [place] [address] Physician'S Assistant: Chato Aguirre MD MCH (RBC) [Entitic mass] 27.6 pg Normal 25.2-33.5 [facility] Comment on above: Performed By: #### L IPRF, CDP, CP, TSHX #### [place] [address] Physician'S Assistant: Chato Aguirre MD MCHC (RBC) [Mass/Vol] 31.5 g/dL Normal 28.4-34.8 [facility] Comment on above: Performed By: #### L IPRF, CDP, CP, TSHX #### [address] [address] Physician'S Assistant: Chato Aguirre MD MCV (RBC) [Entitic vol] 87.6 fL Normal 82.6-102.9 [facility] Comment on above: Performed By: #### L IPRF, CDP, CP, TSHX #### [address] [address] Physician'S Assistant: Chato Aguirre MD Monocytes (Bld) [#/Vol] 0.48 10*3/uL Normal 0.10-1.20 [facility] Comment on above: Performed By: #### L IPRF, CDP, CP, TSHX #### [address] [address] Physician'S Assistant: Chato Aguirre MD Monocytes/100 WBC (Bld) 5 % Normal 3-12 [facility] Comment on above: Performed By: #### L IPRF, CDP, CP, TSHX #### [address] [address] Physician'S Assistant: Chato Aguirre MD Neutrophil (Seg) 62 % Normal 36-65 [facility] Comment on above: Performed By: #### L IPRF, CDP, CP, TSHX #### [address] [address] Physician'S Assistant: Chato Aguirre MD NRBC Automated 0.0 per 100 WBC Normal 0.0 [facility] Comment on above: Performed By: #### L IPRF, CDP, CP, TSHX #### [address] [address] Physician'S Assistant: Chato Agiurre MD Platelet mean volume (Bld) [Entitic vol] 11.6 fL Normal 8.1-13.5 [facility] Comment on above: Performed By: #### L IPRF, CDP, CP, TSHX #### [address] [address] Physician'S Assistant: Chato Aguirre MD Platelets (Bld) [#/Vol] 246 10*3/uL Normal 138-453 [facility] Comment on above: Performed By: #### L IPRF, CDP, CP, TSHX #### [address] [address] Physician'S Assistant: Chato Aguirre MD RBC (Bld) [#/Vol] 4.90 10*6/uL Normal 3.95-5.11 [facility] Comment on above: Performed By: #### L IPRF, CDP, CP, TSHX #### [facility] [employer] [address] [place] [address] Physician'S Assistant: Chato Aguirre MD WBC (Bld) [#/Vol] 9.2 10*3/uL Normal 3.5-11.3 [facility] Comment on above: Performed By: #### L IPRF, CDP, CP, TSHX #### [address] [address] Physician'S Assistant: Chato Aguirre MD Auto Diff Performed NOT REPORTED Normal [facility] Comment on above: Performed By: #### L IPRF, CDP, CP, TSHX #### [address] [address] Physician'S Assistant: Chato Aguirre MD Platelet Estimate NOT REPORTED Normal [facility] Comment on above: Performed By: #### L IPRF, CDP, CP, TSHX #### [facility] [employer] [address] [place] [address] Physician'S Assistant: Chato Aguirre MD RBC morphology finding Nom (Bld) NOT REPORTED Normal [facility] Comment on above: Performed By: #### L IPRF, CDP, CP, TSHX #### [facility] [employer] [address] [place] [address] Physician'S Assistant: Chato Aguirre MD WBC Morphology NOT REPORTED Normal [facility] Comment on above: Performed By: #### L IPRF, CDP, CP, TSHX #### [facility] [address] [place], [place] [phone] Physician'S Assistant: Chato Aguirre MD Comp Metabolic Profon 2020 BUN/CRE Ratio NOT REPORTED Normal 02-17 [facility] Comment on above: Performed By: #### L IPRF, CDP, CP, TSHX #### [facility] [address] [place], [place] [phone] Physician'S Assistant: Chato Aguirre MD Staging: NOT REPORTED Normal [facility] Comment on above: Performed By: #### L IPRF, CDP, CP, TSHX #### [facility] [address] [place], [place] 1936808 Physician'S Assistant: Chato Aguirre MD Comprehensive Metabolic Pane lOrdered By: Miguel Holley on 09-23-2020 Albumin [Mass/Vol] 4.3 g/dL 3.5 - 5.2 g/dL [employer] Phone: Albumin/Globulin [Mass ratio] 1.3 {ratio} [employer] Phone: ALP (Bld) [Catalytic activity/Vol] 49 U/L 35 - 104 U/L [employer] Phone: ALT [Catalytic activity/Vol] 36 U/L High 5 - 33 U/L [employer] Phone: Anion gap [Moles/Vol] 11 mmol/L 9 - 17 mmol/L [employer] Phone: AST [Catalytic activity/Vol] 27 U/L <32 [employer] Phone: Bilirubin [Mass/Vol] 0.34 mg/dL 0.3 - 1 .2 mg/dL [employer] Phone: Calcium [Mass/Vol] 9.5 mg/dL 8.6 - 10. 4 mg/dL [employer] Phone: Chloride [Moles/Vol] 102 mmol/L 98 - 10 7 mmol/L [employer] Phone: CO2 [Moles/Vol] 22 mmol/L 20 - 31 mmol/L [employer] Phone: Creatinine [Mass/Vol] 0.46 mg/dL Low 0.50 - 0.90 mg/dL [employer] Phone: Free PSA/Total PSA [Mass fraction] 7.5 g/dL 6.4 - 8.3 g/dL [employer] Phone: GFR >60 >60 mL/min [employer] Phone: GFR Non- >60 >60 mL/min [employer] Phone: GFR/1.73 sq M.predicted MDRD (S/P/Bld) [Vol rate/Area] [employer] Phone: Comment on above: Average GFR for 20-2 9 years old: 116 mL/min/1.73sq m Chronic Kidney Disease: <60 mL/min/1.73sq m Kidney failure: <15 mL/min/1.73sq m eGFR calculated using average adult body mass. Additional eGFR calculator available at: http://www.[employer].One Month/multiple_crcl_2012.htm GFR/1.73 sq M.predicted MDRD (S/P/Bld) [Vol rate/Area] NOT REPORTED [employer] Phone: Glucose [Mass/Vol] 92 mg/dL 70 - 99 mg/dL [employer] Phone: Potassium [Moles/Vol] 4.2 mmol/L 3.7 - 5.3 mmol/L [employer] Phone: Sodium [Moles/Vol] 135 mmol/L 135 - 144 mmol/L [employer] Phone: Urea nitrogen (BldV) [Mass/Vol] 11 mg/dL 6 - 20 mg/dL [facility] Work Phone: Urea nitrogen/Creatinine (Bld) [Mass ratio] NOT REPORTED [facility] Work Phone: Laboratory - Chemistry and C hemistry - challengeOrdered By: Miguel Holley on 09-23-2020 Albumin [Mass/Vol] 4.3 g/dL (3.5-5.2 ) [facility] Work Phone: Comment on above: Note: Responsible Ob sql server developer: [employer] (3003) ALT [Catalytic activity/Vol] 36 U/L High (5-33 ) [facility] Work Phone: Comment on above: Note: Responsible Ob sql server developer: [employer] (3003) Anion gap [Moles/Vol] 11 mmol/L (9-17 ) [facility] Work Phone: Comment on above: Note: Responsible Ob sql server developer: [employer] (3003) AST [Catalytic activity/Vol] 27 U/L (<32 ) [facility] Work Phone: Comment on above: Note: Responsible Ob sql server developer: [employer] (3003) Bilirubin [Mass/Vol] 0.34 mg/dL (0.3-1.2 ) [facility] Work Phone: Comment on above: Note: Responsible Ob sql server developer: [employer] (3003) Calcium [Mass/Vol] 9.5 mg/dL (8.6-10.4 ) [facility] Work Phone: Comment on above: Note: Responsible Ob sql server developer: [employer] (3003) Chloride [Moles/Vol] 102 mmol/L (98-107 ) [facility] Work Phone: Comment on above: Note: Responsible Ob sql server developer: [employer] (3003) Cholesterol [Mass/Vol] 186 mg/dL (<200 ) [facility] Work Phone: Comment on above: Note: Cholesterol Gu idelines:<200 [id number] Borderline>240 UndesirableResponsible Observer: [employer] (3003) Cholesterol.total/Chol esterol in HDL [Mass ratio] 3.8 {ratio} (<5 ) [facility] Work Phone: Comment on above: Note: Responsible Ob sql server developer: [employer] (3003) CO2 [Moles/Vol] 22 mmol/L (20-31 ) [facility] Work Phone: Comment on above: Note: Responsible Ob sql server developer: [employer] (3003) Creatinine [Mass/Vol] 0.46 mg/dL Low (0.50-0.90 ) [facility] Work Phone: Comment on above: Note: Responsible Ob sql server developer: [employer] (3003) Glucose [Mass/Vol] 92 mg/dL (70-99 ) [facility] Work Phone: Comment on above: Note: Responsible Ob sql server developer: [employer] (3003) Magnesium [Mass/Vol] 49 mg/dL (>40 ) [facility] Work Phone: Comment on above: Note: HDL Guidelines :<40 [id number] Borderline>59 DesirableResponsible Observer: [employer] (3003) Magnesium [Mass/Vol] 102 mg/dL (0-130 ) [facility] Work Phone: Comment on above: Note: LDL Guidelines :<100 [id number] Near to/above [id number] Borderline>159 UndesirableDirect (measured) LDL and calculated LDL are not interchangeable tests.Responsible Observer: [employer] (3003) Magnesium [Mass/Vol] 173 mg/dL High (<150 ) [facility] Work Phone: Comment on above: Note: Triglyceride G uidelines:<150 [id number] High>499 Very highBased on AHA Guidelines for fasting triglyceride, February 2012.Responsible Observer: [employer] (3003) Potassium [Moles/Vol] 4.2 mmol/L (3.7-5.3 ) [facility] Work Phone: Comment on above: Note: Responsible Ob sql server developer: [employer] (3003) Protein [Mass/Vol] 7.5 g/dL (6.4-8.3 ) [facility] Work Phone: Comment on above: Note: Responsible Ob sql server developer: [employer] (3003) Sodium [Moles/Vol] 135 mmol/L (135-144 ) [facility] Work Phone: Comment on above: Note: Responsible Ob sql server developer: [employer] (3003) Urea nitrogen [Mass/Vol] 11 mg/dL (6-20 ) [facility] Work Phone: Comment on above: Note: Responsible Ob sql server developer: [employer] (3003) Laboratory - Hematology and Cell countsOrdered By: Miguel Holley on 09-23-2020 Basophils/100 WBC (Bld) 1 % (0-2 ) [facility] Work Phone: Comment on above: Note: Responsible Ob sql server developer: [employer]NV [employer] (3018) Eosinophils (Bld) [#/Vol] 0.14 10*3/uL (0.00-0.44 ) [facility] Work Phone: Comment on above: Note: Responsible Ob sql server developer: [employer] (3018) Eosinophils/100 WBC (Bld) 2 % (1-4 ) [facility] Work Phone: Comment on above: Note: Responsible Ob sql server developer: [employer] (3018) Erythrocyte distribution width (RBC) [Ratio] 12.4 % (11.8-14.4 ) [facility] Work Phone: Comment on above: Note: Responsible Ob sql server developer: [employer] (3018) Hematocrit (Bld) [Volume fraction] 42.9 % (36.3-47.1 ) [facility] Work Phone: Comment on above: Note: Responsible Ob sql server developer: [employer] (3018) Hemoglobin (Bld) [Mass/Vol] 13.5 g/dL (11.9-15.1 ) [facility] Work Phone: Comment on above: Note: Responsible Ob sql server developer: [employer] (3018) Immature granulocytes/100 WBC (Bld) 0 % (0 ) [facility] Work Phone: Comment on above: Note: Responsible Ob sql server developer: [employer] (3018) Lymphocytes (Bld) [#/Vol] 2.71 10*3/uL (1.10-3.70 ) [facility] Work Phone: Comment on above: Note: Responsible Ob sql server developer: [employer] (3018) Lymphocytes/100 WBC (Bld) 30 % (24-43 ) [facility] Work Phone: Comment on above: Note: Responsible Ob sql server developer: [employer] (3018) MCH (RBC) [Entitic mass] 27.6 pg (25.2-33.5 ) [facility] Work Phone: Comment on above: Note: Responsible Ob sql server developer: [employer] (3018) MCHC (RBC) [Mass/Vol] 31.5 g/dL (28.4-34.8 ) [facility] Work Phone: Comment on above: Note: Responsible Ob sql server developer: [employer] (3018) MCV (RBC) [Entitic vol] 87.6 fL (82.6-102.9 ) [facility] Work Phone: Comment on above: Note: Responsible Ob sql server developer: [employer] (3018) Monocytes (Bld) [#/Vol] 0.48 10*3/uL (0.10-1.20 ) [facility] Work Phone: Comment on above: Note: Responsible Ob sql server developer: [employer] (3018) Monocytes/100 WBC (Bld) 5 % (3-12 ) [facility] Work Phone: Comment on above: Note: Responsible Ob sql server developer: [employer] (8) Platelet mean volume (Bld) [Entitic vol] 11.6 fL (8.1-13.5 ) [facility] Work Phone: Comment on above: Note: Responsible Ob sql server developer: [employer] (3017) Platelets (Bld) [#/Vol] 246 10*3/uL (138-453 ) [facility] Work Phone: Comment on above: Note: Responsible Ob sql server developer: [employer] (3017) RBC (Bld) [#/Vol] 4.90 10*6/uL (3.95-5.11 ) [facility] includes the [facility] Work Phone: Comment on above: Note: Responsible Ob sql server developer: [employer] (3017) RBC morphology finding Nom (Bld) NOT REPORTED [facility] Work Phone: Segmented neutrophils/100 WBC (Bld) 62 % (36-65 ) [facility] Work Phone: Comment on above: Note: Responsible Ob sql server developer: [employer] (3017) WBC (Bld) [#/Vol] 9.2 10*3/uL (3.5-11.3 ) [facility] Work Phone: Comment on above: Note: Responsible Ob sql server developer: [employer] (3017) Lipid Prof, Fastingon 2020 Cholesterol,VLDL NOT REPORTED Normal 06-29 [facility] Comment on above: Performed By: #### L IPRF, CDP, CP, TSHX #### [employer] [address] [place] [address] Physician'S Assistant: Chato Aguirre MD Lipid, FastingOrdered By: Zandra Holley on 09-23-2020 Cholesterol [Mass/Vol] 186 mg/dL <200 [employer] Phone: Comment on above: Cholesterol Guidelines: <200 Desirable 200-240 Borderline >240 Undesirable Cholesterol in HDL [Mass/Vol] 49 mg/dL >40 [employer] Phone: Comment on above: HDL Guidelines: <40 Undesirable 40-59 Borderline >59 Desirable Cholesterol in LDL [Mass/Vol] 102 mg/dL 0 - 130 mg/dL [employer] Phone: Comment on above: LDL Guidelines: <100 Desirable 100-129 Near to/above Desirable 130-159 Borderline >159 Undesirable Direct (measured) LDL and calculated LDL are not interchangeable tests. Cholesterol in VLDL [Mass/Vol] NOT REPORTED High 1 - 30 mg/dL [employer] Phone: Cholesterol.total/Chol esterol in HDL [Mass ratio] 3.8 {ratio} <5 [employer] Phone: Triglyceride, Fasting 173 mg/dL High <150 [employer] Phone: Comment on above: Triglyceride Guidelines: <150 Desirable 150-199 Borderline 200-499 High >499 Very high Based on AHA Guidelines for fasting triglyceride, February 2012. No Panel InformationOrdered By: Miguel Holley on 09-23-2020 Interpretation and review of laboratory results Abnormal [employer] Phone: (cont.) See Note [facility] Work Phone: Comment on above: Note: Average GFR fo r 20-29 years old:116 mL/min/1.73sq mChronic Kidney Disease:<60 mL/min/1.73sq mKidney failure:<15 mL/min/1.73sq meGFR calculated using average adult body mass. Additional eGFR calculatoravailable at:http://www.globalrph.com/multiple_crcl_2011.htmResponsible Observer: CEEV AUTOFILE ([id number]) Abs. Basophil 0.05 k/uL (0.00-0.20 ) [facility] Work Phone: Comment on above: Note: Responsible Ob sql server developer: XNV AUTOFILE ([id number]) Abs.Imm.Granulocyte <0.03 k/uL (0.00-0.30 ) [facility] Work Phone: Comment on above: Note: Responsible Ob sql server developer: XNV AUTOFILE ([id number]) Abs.Neutrophil (Seg) 5.79 k/uL (1.50-8.10 ) [facility] Work Phone: Comment on above: Note: Responsible Ob sql server developer: XNV AUTOFILE ([id number]) Albumin/Glob Ratio 1.3 (1.0-2.5 ) [facility] Work Phone: Comment on above: Note: Responsible Ob sql server developer: CEEV AUTOFILE ([id number]) Alkaline Phos 49 U/L (35-104 ) [facility] Work Phone: Comment on above: Note: Responsible Ob sql server developer: CEEV AUTOFILE ([id number]) Auto Diff Performed NOT REPORTED [facility] Work Phone: BUN/CRE Ratio NOT REPORTED (9-20 ) [facility] Work Phone: Cholesterol,VLDL NOT REPORTED mg/dL (1-30 ) [facility] Work Phone: GFR, Amer >60 mL/min (>60 ) [facility] Work Phone: Comment on above: Note: Responsible Ob sql server developer: CEEV AUTOFILE ([id number]) GFR,non Amer >60 mL/min (>60 ) [facility] Work Phone: Comment on above: Note: Responsible Ob sql server developer: CEEV AUTOFILE ([id number]) NRBC Automated 0.0 per_100_WBC (0.0 ) [facility] Work Phone: Comment on above: Note: Responsible Ob sql server developer: XNV AUTOFILE ([id number]) Platelet Estimate NOT REPORTED [facility] Work Phone: Reported Physicians See Note [facility] Work Phone: Comment on above: Note: Reported Physi cians:Ordering: Cotton, AimeeAttending: Cotton, AimeeReferring: Cotton, Miguel Staging: NOT REPORTED [facility] Work Phone: Thyroid Stim. Horm. 3.38 mIU/L (0.30-5.00 ) Hea Count includes the [facility] Work Phone: Comment on above: Note: Responsible Ob sql server developer: CEEV AUTOFILE ([id number]) WBC Morphology NOT REPORTED [facility] Work Phone: TSH with ReflexOrdered By: Kamryn Holley on 09-23-2020 TSH Qn 3.38 m[IU]/L [facility] Work Phone: APTTon 04-08-2020 aPTT Coag (Bld) [Time] 25.2 s [place], [place] Comment on above: IV Heparin Therapy Range: 62.0-94.0 Brain Natriuretic Peptideon 04-08-2020 Natriuretic peptide B (Bld) [Mass/Vol] pg/mL <300 pg/mL [place], [place] Comment on above: Pro-BNP results ayse ot be compared to BNP results. Natriuretic peptide B (Bld) [Mass/Vol] Pro-BNP Reference Range: [place], [place] Comment on above: Rule Out: <300 Weaver Zone: Age <50 300-450 Age 50-75 300-900 Age >75 300-1800 Usually represents mild to moderate HF but other cardiopulmonary causes cannot be ruled out. Rule In: Age <50 >450 Age 50-75 >900 Age >75 >1800 CBCon 04-08-2020 Erythrocyte distribution width (RBC) [Ratio] 11.9 % 11.8 - 14.4 % [place] Hematocrit (Bld) [Volume fraction] 37.9 % 36.3 - 47.1 % [place] Hemoglobin (Bld) [Mass/Vol] 12.5 g/dL 11.9 - 15.1 g/dL [place] MCH (RBC) [Entitic mass] 27.8 pg 25.2 - 33.5 pg [place] MCHC (RBC) [Mass/Vol] 33.0 g/dL 28.4 - 34.8 g/dL [place] MCV (RBC) [Entitic vol] 84.2 fL 82.6 - 102.9 fL [place] Platelet mean volume (Bld) [Entitic vol] 10.9 fL 8.1 - 13.5 fL [place] Platelets (Bld) [#/Vol] 184 10*3/uL [place] RBC (Bld) [#/Vol] 4.50 10*6/uL 3.95 - 5.1 1 m/uL [place] WBC (Bld) [#/Vol] 7.8 10*3/uL [place] WBC (Bld) [#/Vol] 0.0 10*3/uL 0.0 per 10 0 WBC [place] COVID-19on 04-08-2020 Interpretation and review of laboratory results Abnormal [place] SARS-CoV-2, Rapid DETECTED Abnormal Not Detected [place] Comment on above: Rapid NAAT: The [...] this assay. Fact sheet for Healthcare Providers: https://www.fda.gov/media/019469/download Fact sheet for Patients: https://www.fda.gov/media/049145/download Methodology: Isothermal Nucleic Acid Amplification Results reported to the appropriate Health Department Source .NASOPHARYNGEAL SWAB [place], [place] CT CHEST PULMONARY EMBOLISM W CONTRASTon 04-08-2020 Unremarkable appeara nce of the chest with no evidence of pulmonary embolism and clear lungs. Incidentally noted hepatic fatty infiltration. [place] EXAMINATION: CTA OF THE CHEST 04/08/2020 [...] No significant osseous or soft tissue abnormality. [place], [place] Jean Marie, pn Incoming Radiant Results From [employer] - 04/08/2020 4:12 PM EST EXAMINATION: CTA [...] clear lungs. Incidentally noted hepatic fatty infiltration. [place], [place] Comprehensive Metabolic Pane fermin 04-08-2020 Albumin [Mass/Vol] 4.1 g/dL 3.5 - 5.2 g/dL [place] Albumin/Globulin [Mass ratio] 1.4 {ratio} [place] ALP [Catalytic activity/Vol] 62 U/L 35 - 104 U/L [place] ALT [Catalytic activity/Vol] 19 U/L 5 - 33 U/L [place] Anion gap [Moles/Vol] 10 mmol/L 9 - 17 mmol/L [place] AST [Catalytic activity/Vol] 20 U/L <32 [place] Bilirubin Ql (U) 0.48 mg/dL 0.3 - 1.2 mg/dL [place] Bun/Cre Ratio 23 High [place] Calcium [Mass/Vol] 8.9 mg/dL 8.6 - 10. 4 mg/dL [place] Chloride [Moles/Vol] 102 mmol/L 98 - 10 7 mmol/L [place] CO2 [Moles/Vol] 23 mmol/L 20 - 31 mmol/L [place] Creatinine [Mass/Vol] 0.47 mg/dL Low 0.5 - 0.9 mg/dL [place] GFR >60 >60 mL/min [place] GFR Non- >60 >60 mL/min [place] Glucose [Mass/Vol] 88 mg/dL 70 - 99 mg/dL [place] Interpretation and review of laboratory results Abnormal [place] Potassium [Moles/Vol] 3.7 mmol/L 3.7 - 5.3 mmol/L [place] Protein [Mass/Vol] 7.1 g/dL 6.4 - 8.3 g/dL [place] Sodium [Moles/Vol] 135 mmol/L 135 - 144 mmol/L [place] Urea nitrogen [Mass/Vol] 11 mg/dL 6 - 20 mg/dL [place] Metabolic Panelon 04-08-2020 GFR/1.73 sq M predicted among non-blacks MDRD (S/P/Bld) [Vol rate/Area] [place], [place] Comment on above: Stage 1: Some [...] body mass. Additional eGFR calculator available at: http://www.[employer]/multiple_crcl_2012.htm Otheron 04-08-2020 SARS-CoV-2 [place], [place] , Urineon 0 Beta HCG ( test) Ql (U) Negative NEGATIVE [place] Comment on above: Specimens with hCG l evels near the threshold of the test (25 mIU/mL) may give a negative or indeterminate result. In such cases, another test should be performed with a new specimen in 48-72 hours. If early is suspected clinically in this setting, correlation with quantitative serum b-hCG level is suggested. [employer] has confirmed the use of plasma for this test. This has not been cleared or approved by the U.S. Food and Drug Administration. The FDA has determined that such clearance is not necessary. Protime-INRon 04-08-2020 INR Coag (PPP) [Relative time] 1.0 {INR} [place] Comment on above: Non-therapeutic Range: INR = 0.9-1.2 Therapeutic Range: Moderate Anticoagulant Intensity: INR = 2.0-3.0 High Anticoagulant Intensity: INR = 2.5-3.5 PT Coag (PPP) [Time] 13.2 s [place] Troponinon 04-08-2020 Troponin I.cardiac [Mass/Vol] NOT REPORTED [facility] [place] Troponin T.cardiac [Mass/Vol] NOT REPORTED <0.03 ng/mL [facility] [place] Troponin, High Sensitivity <6 0 - 14 ng/L [facility] [place] Comment on above: High Sensitivity Troponin values cannot be compared with other Troponin methodologies. Patients with high levels of Biotin oral intake (i.e >5mg/day) may have falsely decreased Troponin levels. Samples collected within 8 hours of biotin intake may require additional information for diagnosis. CBC Auto Differentialon 02-0 -2020 Basophils (Bld) [#/Vol] 0.05 10*3/uL [employer] Phone: Basophils/100 WBC (Bld) 1 % 0 - 2 % [employer] Phone: Differential Type NOT REPORTED [employer] Phone: Eosinophils (Bld) [#/Vol] 0.15 10*3/uL [employer] Phone: Eosinophils/100 WBC (Bld) 1 % 1 - 4 % [employer] Phone: Erythrocyte distribution width (RBC) [Ratio] 12.1 % 11.8 - 14.4 % [employer] Phone: Hematocrit (Bld) [Volume fraction] 44.5 % 36.3 - 47.1 % [employer] Phone: Hemoglobin (Bld) [Mass/Vol] 14.0 g/dL 11.9 - 15.1 g/dL [employer] Phone: Immature granulocytes (Bld) [#/Vol] 0 % 0 [employer] Phone: Immature granulocytes (Bld) [#/Vol] 10*3/uL [employer] Phone: Interpretation and review of laboratory results Abnormal [employer] Phone: Lymphocytes (Bld) [#/Vol] 2.83 10*3/uL [employer] Phone: Lymphocytes/100 WBC (Bld) 27 % 24 - 43 % [employer] Phone: MCH (RBC) [Entitic mass] 27.6 pg 25.2 - 33.5 pg [employer] Phone: MCHC (RBC) [Mass/Vol] 31.5 g/dL 28.4 - 34.8 g/dL [employer] Phone: MCV (RBC) [Entitic vol] 87.6 fL 82.6 - 102.9 fL [employer] Phone: Monocytes (Bld) [#/Vol] 0.52 10*3/uL [employer] Phone: Monocytes/100 WBC (Bld) 5 % 3 - 12 % [employer] Phone: [phone] Platelet mean volume (Bld) [Entitic vol] 12.0 fL 8.1 - 13.5 fL [employer] Phone: Platelets (Bld) [#/Vol] NOT REPORTED [employer] Phone: Platelets (Bld) [#/Vol] 241 10*3/uL [employer] Phone: RBC (Bld) [#/Vol] 5.08 10*6/uL 3.95 - 5.1 1 m/uL [employer] Phone: RBC morphology finding Nom (Bld) NOT REPORTED [employer] Phone: Segmented neutrophils/100 WBC (Bld) 66 % High 36 - 65 % [employer] Phone: Segs Absolute 7.04 [employer] Phone: [phone] WBC (Bld) [#/Vol] 10.6 10*3/uL [employer] Phone: WBC (Bld) [#/Vol] 0.0 10*3/uL 0.0 per 10 0 WBC [employer] Phone: WBC Morphology NOT REPORTED [employer] Phone: Cardiacon 07-06-2019 Cholesterol [Mass/Vol] 198 mg/dL (<200) [facility] Work Phone: Comment on above: Note: Cholesterol Gu idelines:<200 [id number] Borderline>240 UndesirableResponsible Observer: CCEV AUTOFILE ([id number]) Comprehensive Metabolic Pane fermin 07-06-2019 Albumin [Mass/Vol] 4.5 g/dL 3.5 - 5.2 g/dL [employer] Phone: Albumin/Globulin [Mass ratio] 1.4 {ratio} [employer] Phone: ALP [Catalytic activity/Vol] 62 U/L 35 - 104 U/L [employer] Phone: ALT [Catalytic activity/Vol] 39 U/L High 5 - 33 U/L [employer] Phone: Anion gap [Moles/Vol] 16 mmol/L 9 - 17 mmol/L [employer] Phone: AST [Catalytic activity/Vol] 32 U/L High <32 [employer] Phone: Bilirubin Ql (U) 0.25 mg/dL Low 0.3 - 1.2 mg/dL [employer] Phone: Bun/Cre Ratio NOT REPORTED [employer] Phone: Calcium [Mass/Vol] 9.8 mg/dL 8.6 - 10. 4 mg/dL [employer] Phone: Chloride [Moles/Vol] 103 mmol/L 98 - 10 7 mmol/L [employer] Phone: CO2 [Moles/Vol] 19 mmol/L Low 20 - 31 mmol/L [employer] Phone: Creatinine [Mass/Vol] 0.51 mg/dL 0.5 - 0.9 mg/dL [employer] Phone: GFR >60 >60 mL/min [employer] Phone: GFR Non- >60 >60 mL/min [employer] Phone: GFR/1.73 sq M predicted among non-blacks MDRD (S/P/Bld) [Vol rate/Area] [employer] Phone: Comment on above: Average GFR for 20-2 9 years old: 116 mL/min/1.73sq m Chronic Kidney Disease: <60 mL/min/1.73sq m Kidney failure: <15 mL/min/1.73sq m eGFR calculated using average adult body mass. Additional eGFR calculator available at: http://www.[employer]/multiple_crcl_2012.htm GFR/1.73 sq M predicted among non-blacks MDRD (S/P/Bld) [Vol rate/Area] NOT REPORTED [employer] Phone: Glucose [Mass/Vol] 89 mg/dL 70 - 99 mg/dL [employer] Phone: Interpretation and review of laboratory results Abnormal [employer] Phone: Potassium [Moles/Vol] 4.6 mmol/L 3.7 - 5.3 mmol/L [employer] Phone: Protein [Mass/Vol] 7.8 g/dL 6.4 - 8.3 g/dL [employer] Phone: Sodium [Moles/Vol] 138 mmol/L 135 - 144 mmol/L [employer] Phone: Urea nitrogen [Mass/Vol] 14 mg/dL 6 - 20 mg/dL [employer] Phone: Hematologyon 07-06-2019 Basophils/100 WBC (Bld) 1 % (0-2) [facility] Work Phone: Comment on above: Note: Responsible Ob sql server developer: XNV AUTOFILE ([id number]) Eosinophils (Bld) [#/Vol] 0.15 10*3/uL (0.00-0.44) [facility] Work Phone: Comment on above: Note: Responsible Ob sql server developer: XNV AUTOFILE ([id number]) Eosinophils/100 WBC (Bld) 1 % (1-4) [facility] Work Phone: Comment on above: Note: Responsible Ob sql server developer: XNV AUTOFILE ([id number]) Hematocrit (Bld) [Volume fraction] 44.5 % (36.3-47.1) [facility] Work Phone: Comment on above: Note: Responsible Ob sql server developer: XNV AUTOFILE ([id number]) Hemoglobin (Bld) [Mass/Vol] 14.0 g/dL (11.9-15.1) [facility] Work Phone: Comment on above: Note: Responsible Ob sql server developer: XNV AUTOFILE ([id number]) Lymphocytes (Bld) [#/Vol] 2.83 10*3/uL (1.10-3.70) [facility] Work Phone: Comment on above: Note: Responsible Ob sql server developer: XNV AUTOFILE ([id number]) Lymphocytes/100 WBC (Bld) 27 % (24-43) [facility] Work Phone: Comment on above: Note: Responsible Ob sql server developer: XNV AUTOFILE ([id number]) MCH (RBC) [Entitic mass] 27.6 pg (25.2-33.5) [facility] Work Phone: Comment on above: Note: Responsible Ob sql server developer: XNV AUTOFILE ([id number]) MCV (RBC) [Entitic vol] 87.6 fL (82.6-102.9) [facility] Work Phone: Comment on above: Note: Responsible Ob sql server developer: XNV AUTOFILE ([id number]) Monocytes (Bld) [#/Vol] 0.52 10*3/uL (0.10-1.20) [facility] Work Phone: Comment on above: Note: Responsible Ob sql server developer: XNV AUTOFILE ([id number]) Monocytes/100 WBC (Bld) 5 % (3-12) [facility] Work Phone: Comment on above: Note: Responsible Ob sql server developer: XNV AUTOFILE ([id number]) Platelets (Bld) [#/Vol] NOT REPORTED [facility] Work Phone: Platelets (Bld) [#/Vol] 241 10*3/uL (138-453) [facility] Work Phone: Comment on above: Note: Responsible Ob sql server developer: XNV AUTOFILE ([id number]) RBC (Bld) [#/Vol] 5.08 10*6/uL (3.95-5.11) [facility] Work Phone: Comment on above: Note: Responsible Ob sql server developer: XNV AUTOFILE ([id number]) RBC morphology finding Nom (Bld) NOT REPORTED [facility] Work Phone: WBC (Bld) [#/Vol] 0.0 per_100_WBC (0.0) [facility] Work Phone: Comment on above: Note: Responsible Ob sql server developer: XNV AUTOFILE ([id number]) WBC (Bld) [#/Vol] 10.6 10*3/uL (3.5-11.3) [facility] Work Phone: Comment on above: Note: Responsible Ob sql server developer: XNV AUTOFILE ([id number]) Lipid, Fastingon 07-06-2019 Cholesterol [Mass/Vol] 198 mg/dL <200 [facility] Work Phone: Comment on above: Cholesterol Guidelines: <200 Desirable 200-240 Borderline >240 Undesirable Cholesterol in HDL [Mass/Vol] 53 mg/dL >40 [employer] Phone: Comment on above: HDL Guidelines: <40 Undesirable 40-59 Borderline >59 Desirable Cholesterol in LDL [Mass/Vol] 118 mg/dL 0 - 130 mg/dL [employer] Phone: Comment on above: LDL Guidelines: <100 Desirable 100-129 Near to/above Desirable 130-159 Borderline >159 Undesirable Direct (measured) LDL and calculated LDL are not interchangeable tests. Cholesterol in VLDL [Mass/Vol] NOT REPORTED 1 - 30 mg/dL [employer] Phone: Cholesterol.total/Chol esterol in HDL [Mass ratio] 3.7 {ratio} <5 [employer] Phone: Triglyceride, Fasting 135 mg/dL <150 [facility] [email or web address] Phone: Comment on above: Triglyceride Guidelines: <150 Desirable 150-199 Borderline 200-499 High >499 Very high Based on AHA Guidelines for fasting triglyceride, February 2012. Metabolic Panelon 07-06-2019 Albumin [Mass/Vol] 4.5 g/dL (3.5-5.2) [facility] Work Phone: Comment on above: Note: Responsible Ob sql server developer: CCEV AUTOFILE ([id number]) ALT [Catalytic activity/Vol] 39 U/L High (5-33) [facility] Work Phone: Comment on above: Note: Responsible Ob sql server developer: CCEV AUTOFILE ([id number]) Anion gap [Moles/Vol] 16 mmol/L (9-17) Hea Count includes the [facility] Work Phone: Comment on above: Note: Responsible Ob sql server developer: CCEV AUTOFILE ([id number]) AST [Catalytic activity/Vol] 32 U/L High (<32) [facility] Work Phone: Comment on above: Note: Responsible Ob sql server developer: CCEV AUTOFILE ([id number]) Bilirubin [Mass/Vol] 0.25 mg/dL Low (0.3-1.2) [facility] Work Phone: Comment on above: Note: Responsible Ob sql server developer: CCEV AUTOFILE ([id number]) Calcium [Mass/Vol] 9.8 mg/dL (8.6-10.4) [facility] Work Phone: Comment on above: Note: Responsible Ob sql server developer: CCEV AUTOFILE ([id number]) Chloride [Moles/Vol] 103 mmol/L (98-107) [facility] Work Phone: Comment on above: Note: Responsible Ob sql server developer: CCEV AUTOFILE ([id number]) CO2 [Moles/Vol] 19 mmol/L Low (20-31) [facility] Work Phone: Comment on above: Note: Responsible Ob sql server developer: CCEV AUTOFILE ([id number]) Creatinine [Mass/Vol] 0.51 mg/dL (0.50-0.90) [facility] Work Phone: Comment on above: Note: Responsible Ob sql server developer: CCEV AUTOFILE ([id number]) Glucose [Mass/Vol] 89 mg/dL (70-99) [facility] Work Phone: Comment on above: Note: Responsible Ob sql server developer: CCEV AUTOFILE ([id number]) Potassium [Moles/Vol] 4.6 mmol/L (3.7-5.3) [facility] Work Phone: Comment on above: Note: Responsible Ob sql server developer: CCEV AUTOFILE ([id number]) Protein [Mass/Vol] 7.8 g/dL (6.4-8.3) [facility] Work Phone: Comment on above: Note: Responsible Ob sql server developer: CCEV AUTOFILE ([id number]) Sodium [Moles/Vol] 138 mmol/L (135-144) [facility] Work Phone: Comment on above: Note: Responsible Ob sql server developer: CCEV AUTOFILE ([id number]) Urea nitrogen [Mass/Vol] 14 mg/dL (6-20) [facility] Work Phone: Comment on above: Note: Responsible Ob sql server developer: CCEV AUTOFILE ([id number]) Otheron 07-06-2019 (cont.) See Note [facility] Work Phone: Comment on above: Note: Average GFR fo r 20-29 years old:116 mL/min/1.73sq mChronic Kidney Disease:<60 mL/min/1.73sq mKidney failure:<15 mL/min/1.73sq meGFR calculated using average adult body mass. Additional eGFR calculatoravailable at:http://www.[employer]/multiple_crcl_2012.htmResponsible Observer: CCEV AUTOFILE (3002) Abs. Basophil 0.05 k/uL (0.00-0.20) [facility] Work Phone: Comment on above: Note: Responsible Ob sql server developer: XNV AUTOFILE ([id number]) Abs.Imm.Granulocyte <0.03 k/uL (0.00-0.30) [facility] Work Phone: Comment on above: Note: Responsible Ob sql server developer: XNV AUTOFILE ([id number]) Abs.Neutrophil (Seg) 7.04 k/uL (1.50-8.10) a Count includes the [facility] Work Phone: Comment on above: Note: Responsible Ob sql server developer: XNV AUTOFILE ([id number]) Albumin/Glob Ratio 1.4 (1.0-2.5) [facility] Work Phone: Comment on above: Note: Responsible Ob sql server developer: CCEV AUTOFILE ([id number]) Alkaline Phos 62 U/L (35-104) [facility] Work Phone: Comment on above: Note: Responsible Ob sql server developer: CCEV AUTOFILE ([id number]) Auto Diff Performed NOT REPORTED Hea Count includes the [facility] Work Phone: BUN/CRE Ratio NOT REPORTED (9-20) [facility] Work Phone: Cholesterol,HDL 53 mg/dL (>40) [facility] Work Phone: Comment on above: Note: HDL Guidelines :<40 [id number] Borderline>59 DesirableResponsible Observer: CCEV AUTOFILE ([id number]) Cholesterol,LDL 118 mg/dL (0-130) [facility] Work Phone: Comment on above: Note: LDL Guidelines :<100 [id number] Near to/above [id number] Borderline>159 UndesirableDirect (measured) LDL and calculated LDL are not interchangeable tests.Responsible Observer: CCEV AUTOFILE ([id number]) Cholesterol,VLDL NOT REPORTED mg/dL (1-30) [facility] Work Phone: Cholesterol.total/Chol esterol in HDL [Mass ratio] 3.7 {ratio} (<5) [facility] Work Phone: Comment on above: Note: Responsible Ob sql server developer: CCEV AUTOFILE ([id number]) Erythrocyte distribution width (RBC) [Ratio] 12.1 % (11.8-14.4) [facility] Work Phone: Comment on above: Note: Responsible Ob sql server developer: XNV AUTOFILE ([id number]) Free Insulin 34 uIU/mL High (3-19) [facility] Work Phone: Comment on above: Note: Responsible Ob sql server developer: LAB ARUP ([id number]) GFR, Amer >60 mL/min (>60) [facility] Work Phone: Comment on above: Note: Responsible Ob sql server developer: CCEV AUTOFILE ([id number]) GFR,non Amer >60 mL/min (>60) [facility] Work Phone: Comment on above: Note: Responsible Ob sql server developer: CCEV AUTOFILE ([id number]) Immature granulocytes (Bld) [#/Vol] 0 % (0) [facility] Work Phone: Comment on above: Note: Responsible Ob sql server developer: XNV AUTOFILE ([id number]) MCHC (RBC) [Mass/Vol] 31.5 g/dL (28.4-34.8) [facility] Work Phone: Comment on above: Note: Responsible Ob sql server developer: XNV AUTOFILE ([id number]) Performing Lab: see note [facility] Work Phone: Comment on above: Note: [facility] [address] [facility] [address] Note: [facility] [address] [facility] [address] Platelet mean volume (Bld) [Entitic vol] 12.0 fL (8.1-13.5) [facility] Work Phone: Comment on above: Note: Responsible Ob sql server developer: XNV AUTOFILE ([id number]) Reported Physicians See Note [facility] Work Phone: Comment on above: Note: Reported Physi cians:Ordering: Allyson Floyd AAttending: Jhoana FloydaReferring: Allyson Floyd Segmented neutrophils/100 WBC (Bld) 66 % High (36-65) [facility] Work Phone: Comment on above: Note: Responsible Ob sql server developer: XNV AUTOFILE ([id number]) Staging: NOT REPORTED [facility] Work Phone: Thyroid Stim. Horm. 4.15 mIU/L (0.30-5.00) [facility] Work Phone: Comment on above: Note: Responsible Ob sql server developer: CCEV AUTOFILE (300) Thyroxine, Free 1.21 ng/dL (0.93-1.70) [facility] Work Phone: Comment on above: Note: Responsible Ob sql server developer: CCEV AUTOFILE ([id number]) Total Insulin 46 uIU/mL High (3-19) [facility] Work Phone: Comment on above: Note: (NOTE)INTERPRE TIVE INFORMATION: Insulin, Free and TotalThis test reacts on a nearly equimolar basis with the analogsinsulin aspart, insulin glargine, and insulin lispro. Insulindetemir exhibits approximately 50 percent cross-reactivity. Testreactivity with insulin glulisine is negligible (<3 percent). Toconvert to pmol/L, multiply uIU/mL by 6.0. Reference intervalsestablished for fasting specimens.Performed by [employer],[address] [place] [id number] [email or web address], [place] Xiong MD, Lab. DirectorResponsible Observer: LAB KIERAN ([id number]) Triglyceride,Fasting 135 mg/dL (<150) [facility] Work Phone: Comment on above: Note: Triglyceride G uidelines:<150 [id number] High>499 Very highBased on AHA Guidelines for fasting triglyceride, February 2012.Responsible Observer: CCEV AUTOFILE ([id number]) Triiodothyronine T3 150 ng/dL (80-200) [facility] Work Phone: Comment on above: Note: Responsible Ob sql server developer: CEEV AUTOFILE ([id number]) WBC Morphology NOT REPORTED [facility] Work Phone: T3on 07-06-2019 T3, Total 150 ng/dL 80 - 200 ng/dL [facility] Work Phone: T4, Freeon 07-06-2019 Thyroxine, Free 1.21 ng/dL 0.93 - 1.7 ng/dL [employer] Phone: TSH without Reflexon 020 TSH Qn 4.15 m[IU]/L [facility] Work Phone: US NON OB TRANSVAGINALon Satisfactory IUD position. RECOMMENDATIONS: No follow-up imaging is recommended. Reference: US BPRs based on Radiology 2010 Jan;256(3):943-54; CT/MR BPRs based on J Am Joanne Radiol 2013;10:675-681. [facility], [place] EXAMINATION: PELVIC ULTRASOUND 02/02/2019 TECHNIQUE: Transvaginal pelvic [...] Free Fluid: No evidence of free fluid. [facility] Jean Marie, jose luis Incoming Radiant Results From [facility] - 02/02/2019 8:44 AM EDT EXAMINATION: PELVIC [...] based on J Am Joanne Radiol 2013;10:675-681. [employer] JA ROBBY CNOVon 08-21-2018 CNOV Office Visit ([facility] ) ----- ESTEFANIA HERRERA ([id number]) 1995 F Date Time Provider Department 08/21/18 12:00 PM MIGUEL LOVELACE (DIANELYS) BENJA During your visit today, we recorded the following information about you: Temperature Pulse Respiration Blood pressure 97.6 degrees 99/minute 16/minute 136/81 Weight 109.8 kg Miguel Lovelace APRN.CNP 08/21/2018 12:46 PM Signed Subjective The history is provided by the patient. No assistant speech language pathologist was used. Cough This is a new [...] is a safe and effective decongestant 3. Garza Nasal Anasco may offer relief of nasal and head [...] help open respiratory and sinus passages. - Garza Nasal Anasco may offer relief of nasal and head [...] get worse. [facility] I appreciate your confidence in choosing the [facility] for your medical care. Miguel Lovelace APRN.[facility] [address] [place] [phone] Referring Provider: SELF [200] Allergies As of [...] is a safe and effective decongestant 3. Garza Nasal Anasco may offer relief of nasal and head [...] help open respiratory and sinus passages. - Garza Nasal Anasco may offer relief of nasal and head [...] get worse. Thank you for coming to [facility] today. I appreciate your confidence in choosing the [facility] for your medical care. Miguel Lovelace APRN.[facility] [place] [id number] [facility] [phone] Prescriptions ordered this encounter Disp Refills Start [...] by MIGUEL LOVELACE CNP on 08/21/18 Normal [facility] PROGRESSon 08-21-2018 Protein mass conc HNO ID: [id number] Author: Miguel Lovelace Service: ? Author Type: Nurse Practitioner Type: Progress Notes Filed: 08/21/2018 12:46 PM Note Text: Subjective The history is provided by the patient. No assistant speech language pathologist was used. Cough This is a new [...] 3-5 days or get worse Miguel Lovelace APRN.FRAMING MANAGER Normal [facility] CNCOon 12-22-2017 CNCO Letter Text Erica Velazquez MD [facility] [address] [place] [address] Estefania Herrera December 22, 2017 Estefania Herrera [address] [place] [address] Dear Ms. Herrera, It was noted that you did not keep your scheduled appointment on 12-22-17. It is important to contact the office in advance if you are unable to keep your appointment so that it is available for other patients. Your medical care is important to us. Please call our office to reschedule an appointment. Sincerely, Erica Velazquez MD [facility] Consult Reporton 01-05-2017 Consult Report Patient: JITENDRA HERRERA Age: 21 years Sex: Female : 1995 Associated Diagnoses: None Author: KAREN ACKERMAN DPM, RES [facility] Department[facility] for Consult: Active Problems (1)Crush [...] discussed with attending physician, Dr. Jaime Ackerman [phone] ically Signed by: KAREN ACKERMAN DPM, RES on 01/04/2017 13:59 EDTElectronically Co-Signed by: Cecelia ACKERMAN DPM, RES 01/04/2017 14:37 EDTElectronically Co-Signed by: Rene REYES DPM 01/05/2017 18:28 EDT Normal [facility] APTTon 01-04-2017 aPTT 29.9 Second(s) Normal [facility] Comment on above: Result Comment: VERI FIED by Discern Expert. Performed By: #### 1 21680, 5620319, 427361, 693334, 785441, 260708 ####[facility] [address] [place] [address] Medical Director: David Doe MD aPTT 25.9 Second(s) Normal 25.0-36.0 [facility] Comment on above: Performed By: #### 1 70589, 8814782, 415356, 667848, 060572, 241238 ####[facility] [address] [place] [address]10[address] Medical Director: David Doe MD AUTO DIFFon 01-04-2017 Basophils Auto #/vol (Bld) 0.04 x1000 Normal 0.00-0.20 [facility] Comment on above: Performed By: #### 1 17735, 6385948, 269643, 732399, 047585, 206641 ####[facility] [address]mdkhrbp44339 [place] [address] Medical Director: David Doe MD Basos % 0.5 % Normal [facility] Comment on above: Performed By: #### 1 24716, 6340961, 783664, 567568, 311676, 810323 ####[facility] [address]gua24[address] [place] [address] Medical Director: David Doe MD Eos Count 0.10 x1000 Normal 0.00-0.50 [facility] Comment on above: Performed By: #### 1 49265, 8333613, 684196, 767869, 407579, 479556 ####[facility] [address]wpzsaet24649 [place] [address] Medical Director: David Doe MD Eosinophils/100 leukocytes 1.0 % Normal [facility] Comment on above: Performed By: #### 1 55025, 8602871, 944683, 540878, 635367, 045695 ####[facility] [address]afq[address] [place] [address] Medical Director: David Doe MD Lymphocytes 2.84 x1000 Normal 1.20-4.80 [facility] Comment on above: Performed By: #### 1 52894, 9893242, 959176, 079394, 607948, 779624 ####[facility] [address]jjjrry957[address] [place] [address] Medical Director: David Doe MD Lymphocytes/100 leukocytes 29.4 % Normal [facility] Comment on above: Performed By: #### 1 06529, 1821307, 337336, 266099, 671561, 757652 ####[facility] [address] [place] [address] Medical Director: David Doe MD Randolph Count 0.68 x1000 Normal 0.10-1.00 [facility] Comment on above: Performed By: #### 1 21932, 5185188, 700240, 041738, 851869, 669261 ####[facility] [address]mr[address]69[address] [place] [address] Medical Director: David Doe MD Monocytes/100 leukocytes 7.0 % Normal [facility] Comment on above: Performed By: #### 1 65049, 0867017, 702864, 954062, 009083, 184365 ####[facility] [address]asymn[address] [place] [address] Medical Director: David Doe MD Neutrophils 5.98 x1000 Normal 1.40-8.80 [facility] Comment on above: Performed By: #### 1 89727, 0794391, 577045, 537736, 210864, 039856 ####[facility] [address]cqfxxkh69935 [place] [address] Medical Director: David Doe MD Neutrophils/100 WBC Auto (Bld) 62.0 % Normal [facility] Comment on above: Performed By: #### 1 47816, 6812509, 339151, 481911, 082048, 538210 ####[facility] [address]ut[address] [place] [address] Medical Director: David Doe MD COMPMETAon 01-04-2017 Globulin 4.0 g/dL Normal [facility] Comment on above: Performed By: #### 1 45699, 6428423, 572245, 664289, 868446, 781499 ####[facility] [address]tw[address] [place] [address] Medical Director: David Doe MD Osmolality 277 mOsm/kg Normal 275-295 [facility] Comment on above: Performed By: #### 1 19170, 5823206, 156882, 320386, 880329, 377519 ####[facility] [address]hi734[address] [place], [place] [id number]) [phone] Director: David Doe MD eGFR (non-black) mL/min/{1.73_m2} Normal [facility] Comment on above: Result Comment: Afri can Ivorian GFR Calc Performed By: #### 1 35853, 8682585, 644473, 789137, 572951, 741252 ####[facility] Xwfqsmzk49104 [place], [place] [address]) [phone] Director: David Doe MD Result Comment: Non GFR CalcMedical judgement is necessary to interpret GFR. The calculated GFR may not accurately reflect renal status in patients >70 years, women, acutely ill hospitalized patients and patients with acute renal failure or known renal disease.Note:Creatinine clearance (not GFR) should be used for drug dosing. Albumin/Globulin Ratio 0.8 {ratio} Normal [facility] Comment on above: Performed By: #### 1 61523, 1076650, 466315, 388677, 940077, 886212 ####[facility] [address]kwqa[address]66[address] [place] [address] Medical Director: David Doe MD BUN/Creatinine Ratio 17.6 mg/mg Normal [facility] Comment on above: Performed By: #### 1 98169, 7742404, 891894, 045341, 631422, 551788 ####[facility] [address]ou659[address] [place] [address] Medical Director: David Doe MD Alk Phos 61 unit/L Normal 45-117 [facility] Comment on above: Performed By: #### 1 05846, 1226645, 941184, 584786, 685068, 368522 ####[facility] Tb[address]bwqz89[address] [place] [address] Medical Director: David Doe MD Bilirubin (total) 0.41 mg/dL Normal 0.20-1.00 [facility] Comment on above: Performed By: #### 1 85182, 1422382, 075456, 294119, 398321, 636549 ####[facility] [address]75[address] [place], [place] [address]) [phone] Director: David Doe MD Protein 7.4 g/dL Normal 6.0-8.5 [facility] Comment on above: Performed By: #### 1 76697, 3750859, 007077, 273026, 697562, 713958 ####[facility] K[address]qetu866[address] [place], [place] [address]) [phone] Director: David Doe MD GPT 16 unit/L Normal 13-56 [facility] Comment on above: Result Comment: Mariposa puncture should occur prior to sulfasalazine and/or sulfapyridine administration due to the potential for falsely depressed results.Baseline assay values before administration of sulfasalazine and sulfapyridine therapy would not be affected. Performed By: #### 1 86682, 1595356, 972471, 029544, 872907, 088709 ####[facility] Dustmteh[address] [place] [address] Medical Director: David Doe MD Creatinine 0.7 mg/dL Normal 0.6-1.0 [facility] Comment on above: Performed By: #### 1 49503, 1540059, 292635, 654600, 563327, 490275 ####[facility] [address]zzzd44[address] [place] [address] Medical Director: David Doe MD GOT 14 unit/L Low 15-37 [facility] Comment on above: Result Comment: Mariposa puncture should occur prior to sulfasalazine and/or sulfapyridine administration due to the potential for falsely depressed results.Baseline assay values before administration of sulfasalazine and sulfapyridine therapy would not be affected. Performed By: #### 1 88256, 9996824, 947621, 156375, 881139, 154414 ####[facility] Nceeggju54098 [place] [address] Medical Director: David Doe MD Urea nitrogen 13 mg/dL Normal 10-20 [facility] Comment on above: Performed By: #### 1 58111, 2617109, 504729, 795294, 246143, 790475 ####[facility] [address]yqmidlv76116 [place] [address] Medical Director: David Doe MD Glucose mass conc 86 mg/dL Normal 72-100 [facility] Comment on above: Result Comment: Mariposa puncture should occur prior to sulfasalazine administration due to the potential for falsely depressed results. Venipuncture should occur prior to sulfapyridine administration due to the potential falsely elevated results.Baseline assay values before administration of sulfasalazine and sulfapyridine therapy would not be affected. Performed By: #### 1 64196, 8381679, 400198, 245614, 622211, 622926 ####[facility] [address]unjo32604 [place] [address] Medical Director: David Doe MD Albumin 3.4 g/dL Normal 3.4-5.0 [facility] Comment on above: Performed By: #### 1 74553, 6069590, 614395, 079150, 641995, 862826 ####[facility] S[address]qbexr65836 [place] [address] Medical Director: David Doe MD CO2 19.0 mmol/L Low 21.0-32.0 [facility] Comment on above: Performed By: #### 1 73724, 7470061, 835015, 456157, 398825, 357649 ####[facility] [address]zam42470 [place] [address] Medical Director: David Doe MD Calcium 9.0 mg/dL Normal 8.5-10.5 [facility] Comment on above: Performed By: #### 1 61485, 9468149, 424183, 517327, 780088, 526304 ####[facility] [address]cf[address]ob[address] [place] [address] Medical Director: David Doe MD Potassium molar conc 3.7 mmol/L Normal 3.5-5.[address] [facility] Comment on above: Performed By: #### 1 70390, 7557100, 311052, 757581, 025813, 328500 ####[facility] [address]bextgzf625[address] [place] [address] Medical Director: David Doe MD Sodium 139 mmol/L Normal 135-145 [facility] Comment on above: Performed By: #### 1 46323, 7955391, 563132, 227637, 258721, 999786 ####[facility] [address]xok[address]23[address] [place] [address] Medical Director: David Doe MD Chloride 108 mmol/L Normal 100-109 [facility] Comment on above: Performed By: #### 1 90500, 7205481, 517464, 119532, 005878, 145744 ####[facility] Khpedkck45[address] [place] [address] Medical Director: David Doe MD CT LOWER [...] Damir SMITH MD Out: 01/04/17 12:59:57 Normal [facility] ED Physician Reporton 2016 ED [...] Plan Diagnosis Crush injury of right foot ([id number] S97.81XA, Working, Medical) Plan Condition: Stable. Disposition: ED Discharge to Home was placed.(01/04/2017 13:39:31 EDT, Constant Order). Prescriptions: Launch prescriptions Pharmacy:Percocet 5/325 ([id number]) oral tablet (Prescribe): 1 tabs, ORAL, [id number], PRN: for pain, 24 tabs, 0 Refill(s)doxycycline hyclate 100 mg oral tablet (Prescribe): 100 mg = 1 tabs, ORAL, BID, for 10 days, 20 tabs, 0 Refill(s). Patient was given the following educational materials: Cryotherapy, Ltzk-my-Mqea, Compartment Syndrome of the Foot, Compartment Syndrome of the Foot, Cryotherapy, Sufm-fp-Gaij. Follow up with: 837 FAMILY PHYSICIAN Within [...] by: Selene GALVAN MD 01/04/2017 14:19 Normal [facility] ED Progress Noteon 7 ED [...] medicatedsig other at bedsidepodiatry coming to see he1939 ASSUMED CARE OF PT, REPORT RECEIVED FROM [...] a little dizzy after trying crutches. Normal [facility] HCGon 01-04-2017 HCG, Qual <1.0 Normal [facility] Comment on above: Result Comment: 0 - 3 Negative3 - 50 Inconclusive>50 Positive Performed By: #### 1 89014, 1529961, 360651, 899674, 659344, 363787 ####[facility] Pkdinmko49543 [place], [place] [id number]) [phone] Director: David Doe MD HEMOon 01-04-2017 DIFF? No Normal [facility] Comment on above: Performed By: #### 1 30217, 8665241, 482604, 009640, 417851, 034846 ####[facility] Dmcvgsue21052 [place], [place] [address]) [phone] Director: David Doe MD Erythrocyte distribution width Auto Ratio (RBC) 13.3 % Normal 11.5-14.5 [facility] Comment on above: Performed By: #### 1 35723, 8105145, 070098, 999830, 882692, 320862 ####[facility] Rhdcdnni25676 [place] [address] Medical Director: David Doe MD Erythrocytes (RBC) 4.80 x10 Normal 4.20-5.[address] [facility] Comment on above: Result Comment: Note : RBC morphology is normal unless otherwise stated. Evaluation performed only if differential is requested. Performed By: #### 1 86435, 1285421, 819830, 346090, 846932, 426531 ####[facility] Cgevmnvt19394 [place] [address] Medical Director: David Doe MD Hematocrit (HCT) 39.0 % Normal 36.0-46.0 [facility] Comment on above: Performed By: #### 1 87872, 7915016, 526364, 588261, 122725, 892349 ####[facility] Hwgrvsyr51639 [place], [place] [address]) [phone] Director: David Doe MD Hemoglobin mass conc (Bld) 13.1 g/dL Normal 12.0-16.0 [facility] Comment on above: Performed By: #### 1 39033, 5469712, 947879, 993323, 783980, 447511 ####[facility] Fbmfnsca12890 [place], [place] [address]) [phone] Director: David Doe MD MCH 27.3 pg Normal 27.0-34.0 [facility] Comment on above: Performed By: #### 1 95531, 3708068, 421470, 122080, 498222, 116088 ####[facility] [address]qmx[address]aw866[address] [place], [place] [address]) [phone] Director: David Doe MD MCHC mass conc (RBC) 33.6 g/dL Normal 32.0-37.[address] [facility] Comment on above: Performed By: #### 1 75793, 7307450, 815634, 122114, 822559, 287656 ####[facility] Fnwkklhr47140 [place], [place] [address]) [phone] Director: David Doe MD MCV 81.3 fL Normal 80.0-100.0 [facility] Comment on above: Performed By: #### 1 66982, 6887145, 034963, 929086, 237638, 342480 ####[facility] [address]wxsq07[address] [place] [address] Medical Director: David Doe MD Nucleated RBC% 0 /100WC Normal [facility] Comment on above: Performed By: #### 1 99611, 3810969, 488632, 259636, 731801, 524458 ####[facility] Qpoxwbga17951 [place] [address] Medical Director: David Doe MD Platelet mean volume (PMV) 9.4 fL Normal 7.4-10.4 [facility] Comment on above: Performed By: #### 1 53009, 0836085, 553665, 449422, 708004, 517722 ####[facility] Hzchjkbj47441 [place] [address] Medical Director: David Doe MD Platelets 238 x1000 Normal 150-450 [facility] Comment on above: Performed By: #### 1 68152, 0281603, 337094, 106845, 474245, 245079 ####[facility] Srcbwmnj33876 [place] [address] Medical Director: David Doe MD WBC (Leukocytes) 9.6 10*3/uL Normal [facility] Comment on above: Performed By: #### 1 55624, 5605885, 433232, 820477, 380101, 643169 ####[facility] Vrswlxrw32641 [place] [address] Medical Director: David Doe MD WBC (Leukocytes) 9.6 x10 Normal 4.5-11.0 [facility] Comment on above: Performed By: #### 1 10479, 1581077, 174125, 887275, 092696, 299650 ####[facility] Zvyijyca71062 [place] [address] Medical Director: David Doe MD PT INRon 01-04-2017 Protime Median 11.1 Second(s) Normal [facility] Comment on above: Result Comment: VERI FIED by Discern Expert. Performed By: #### 1 78471, 1431178, 127996, 897435, 745317, 650084 ####[facility] Bzsisahx19678 [place] [address] Medical Director: David Doe MD INR Coag RelTime (PPP) 1.0 {INR} Normal [facility] Comment on above: Result Comment: Norm al reference range for INR on patients not on anticoagulant therapy: 0.9-1.1. General therapeutic range for patients on anticoagulant therapy: 2.0-3.5. Performed By: #### 1 09033, 6390881, 892503, 192338, 397241, 490777 ####[facility] [address]jjog[address] [place] [address]10[address] [facility] Director: David Doe MD Protime Patient 11.3 Second(s) Normal 9.8-12.7 [facility] Comment on above: Performed By: #### 1 23119, 2439676, 308992, 431617, 310953, 857891 ####[facility] [address]fwut[address] [place] [address] Medical Director: David Doe MD XR FOOT [...] Alberto AGUILAR MD Out: 01/04/17 11:49:07 Normal [facility] Vital Signs Date Time Vital Sign Value Performing Clinician Facility 12-04-2021 10:03-0400 Body height 173.35 cm [facility] 12-04-2021 10:03-0400 Body mass index (BMI) [Ratio] 35.22 kg/m2 [facility] 12-04-2021 10:03-0400 Body surface area Derived from formula 2.26 m2 [facility] 12-04-2021 10:03-0400 Body weight 105.83 kg [facility] 12-04-2021 10:03-0400 Diastolic blood pressure 68 mm[Hg] [facility] 12-04-2021 10:03-0400 Heart rate 68 /min [facility] 12-04-2021 10:03-0400 Systolic blood pressure 116 mm[Hg] [facility] 10-15-2020 01:15-0400 Diastolic blood pressure 71 mm[Hg] Donny Andes DO Work Phone: [employer] Phone: 10-15-2020 01:15-0400 SaO2% (BldA) [Mass fraction] 94 % Donny Andes DO Work Phone: [employer] Work Phone: 10-15-2020 01:15-0400 Systolic blood pressure 117 mm[Hg] Donny Andes DO Work Phone: [employer] Phone: 10-14-2020 23:18-0400 Body temperature 97.59 [degF] Donny Andes DO Work Phone: [facility] Work Phone: 10-14-2020 23:18-0400 Heart rate 98 /min Donny Andes DO Work Phone: [facility] Work Phone: 10-14-2020 23:18-0400 Respiratory rate 18 /min Donny Andes DO Work Phone: [facility] Work Phone: 09-23-2020 08:31-0400 Body height 172.72 cm Miguel Holley CNP Work Phone: [facility] Work Phone: 09-23-2020 08:31-0400 Body mass index (BMI) [Ratio] 40.9 kg/m2 Miguel Holley CNP Work Phone: [facility] Work Phone: 09-23-2020 08:31-0400 Body surface area Derived from formula 2.32 m2 Miguel Holley CNP Work Phone: [facility] Work Phone: 09-23-2020 08:31-0400 Body temperature 964 [degF] Miguel Holley CNP Work Phone: [facility] Work Phone: 09-23-2020 08:31-0400 Body weight 122.02 kg Miguel Holley CNP Work Phone: [facility] Work Phone: 09-23-2020 08:31-0400 Diastolic blood pressure 80 mm[Hg] Miguel Holley CNP Work Phone: [facility] Work Phone: 09-23-2020 08:31-0400 Heart rate 80 /min Miguel Holley CNP Work Phone: [facility] Work Phone: 09-23-2020 08:31-0400 Respiratory rate 18 /min Miguel Holley CNP Work Phone: [facility] Work Phone: 09-23-2020 08:31-0400 SaO2% (BldA) [Mass fraction] 98 % Miguel Holley CNP Work Phone: [facility] Work Phone: 09-23-2020 08:31-0400 Systolic blood pressure 126 mm[Hg] Miguel Holley CNP Work Phone: [facility] Work Phone: 04-08-2020 16:25-0500 Respiratory Rate 16 /min [facility], [place] 04-08-2020 16:20-0500 Pulse (Heart Rate) 86 /min [facility] 04-08-2020 16:20-0500 Pulse Oximetry 98 % [facility] [place] 04-08-2020 16:00-0500 BP Diastolic 66 mm[Hg] [facility] [place] 04-08-2020 16:00-0500 BP Systolic 121 mm[Hg] [facility] [place] 04-08-2020 13:23-0500 Body Temperature 98.4 [degF] [facility] 03-19-2020 19:09-0400 BMI (Body Mass Index) 37.3 kg/m2 [facility] Work Phone: 03-19-2020 19:09-0400 Body weight 111.13 kg [facility] Work Phone: 03-19-2020 19:09-0400 BSA (Body Surface Area) 2.23 m2 [facility] Work Phone: 03-19-2020 19:09-0400 Height 172.72 cm [facility] Work Phone: 03-05-2020 08:30-0400 BMI (Body Mass Index) 37.3 kg/m2 [facility] Work Phone: 03-05-2020 08:30-0400 Body Temperature 95.4 [degF] [facility] Work Phone: 03-05-2020 08:30-0400 Body weight 111.13 kg [facility] Work Phone: 03-05-2020 08:30-0400 BP Diastolic 80 mm[Hg] [facility] Work Phone: 03-05-2020 08:30-0400 BP Systolic 120 mm[Hg] [facility] Work Phone: 03-05-2020 08:30-0400 BSA (Body Surface Area) 2.23 m2 [facility] Work Phone: 03-05-2020 08:30-0400 Height 172.72 cm [facility] Work Phone: 03-05-2020 08:30-0400 Pulse (Heart Rate) 74 /min [facility] Work Phone: 03-05-2020 08:30-0400 Pulse Oximetry 99 % [facility] Work Phone: 03-05-2020 08:30-0400 Respiratory Rate 18 /min [facility] Work Phone: 03-05-2020 08:30-0400 SaO2% (BldA) [Mass fraction] 99 % [facility] Work Phone: [facility] Work Phone: 12-05-2019 08:37-0400 BMI (Body Mass Index) 35.4 kg/m2 [facility] Work Phone: 12-05-2019 08:37-0400 Body Temperature 98.8 [degF] [facility] Work Phone: 12-05-2019 08:37-0400 Body weight 105.69 kg [facility] Work Phone: 12-05-2019 08:37-0400 BP Diastolic 72 mm[Hg] [facility] Work Phone: 12-05-2019 08:37-0400 BP Systolic 116 mm[Hg] [facility] Work Phone: 12-05-2019 08:37-0400 BSA (Body Surface Area) 2.18 m2 [facility] Work Phone: 12-05-2019 08:37-0400 Flow Rate 0 L/min [facility] Work Phone: 12-05-2019 08:37-0400 Height 172.72 cm [facility] Work Phone: 12-05-2019 08:37-0400 Inhaled Oxygen Concentration 21 % [facility] Work Phone: 12-05-2019 08:37-0400 Pulse (Heart Rate) 81 /min [facility] Work Phone: 12-05-2019 08:37-0400 Pulse Oximetry 98 % [facility] Work Phone: 12-05-2019 08:37-0400 Respiratory Rate 18 /min [facility] Work Phone: 12-05-2019 08:37-0400 SaO2% (BldA) [Mass fraction] 98 % [facility] Work Phone: [facility] Work Phone: 11-06-2019 09:02-0400 BMI (Body Mass Index) 36.2 kg/m2 [facility] Work Phone: 11-06-2019 09:02-0400 Body Temperature 95.8 [degF] [facility] Work Phone: 11-06-2019 09:02-0400 Body weight 107.96 kg [facility] Work Phone: 11-06-2019 09:02-0400 BP Diastolic 80 mm[Hg] [facility] Work Phone: 11-06-2019 09:02-0400 BP Systolic 110 mm[Hg] [facility] Work Phone: 11-06-2019 09:02-0400 BSA (Body Surface Area) 2.2 m2 [facility] Work Phone: 11-06-2019 09:02-0400 Height 172.72 cm [facility] Work Phone: 11-06-2019 09:02-0400 Pulse (Heart Rate) 94 /min [facility] Work Phone: 11-06-2019 09:02-0400 Pulse Oximetry 98 % [facility] Work Phone: 11-06-2019 09:02-0400 Respiratory Rate 18 /min [facility] Work Phone: 11-06-2019 09:02-0400 SaO2% (BldA) [Mass fraction] 98 % [facility] Work Phone: [facility] Work Phone: 10-12-2019 09:53-0400 BMI (Body Mass Index) 38.2 kg/m2 [facility] Work Phone: 10-12-2019 09:53-0400 Body Temperature 98.7 [degF] [facility] Work Phone: 10-12-2019 09:53-0400 Body weight 113.85 kg [facility] Work Phone: 10-12-2019 09:53-0400 BP Diastolic 82 mm[Hg] [facility] Work Phone: 10-12-2019 09:53-0400 BP Systolic 122 mm[Hg] [facility] Work Phone: 10-12-2019 09:53-0400 BSA (Body Surface Area) 2.25 m2 [facility] Work Phone: 10-12-2019 09:53-0400 Flow Rate 0 L/min [facility] Work Phone: 10-12-2019 09:53-0400 Height 172.72 cm [facility] Work Phone: 10-12-2019 09:53-0400 Inhaled Oxygen Concentration 21 % [facility] Work Phone: 10-12-2019 09:53-0400 Pulse (Heart Rate) 97 /min [facility] Work Phone: 10-12-2019 09:53-0400 Pulse Oximetry 98 % [facility] Work Phone: 10-12-2019 09:53-0400 Respiratory Rate 18 /min [facility] Work Phone: 10-12-2019 09:53-0400 SaO2% (BldA) [Mass fraction] 98 % [facility] Work Phone: [facility] Work Phone: 09-14-2019 08:35-0400 BMI (Body Mass Index) 37.7 kg/m2 [facility] Work Phone: 09-14-2019 08:35-0400 Body Temperature 96.6 [degF] [facility] Work Phone: 09-14-2019 08:35-0400 Body weight 112.49 kg [facility] Work Phone: 09-14-2019 08:35-0400 BP Diastolic 80 mm[Hg] [facility] Work Phone: 09-14-2019 08:35-0400 BP Systolic 130 mm[Hg] [facility] Work Phone: 09-14-2019 08:35-0400 BSA (Body Surface Area) 2.24 m2 [facility] Work Phone: 09-14-2019 08:35-0400 Height 172.72 cm [facility] Work Phone: 09-14-2019 08:35-0400 Pulse (Heart Rate) 81 /min [facility] Work Phone: 09-14-2019 08:35-0400 Pulse Oximetry 98 % [facility] Work Phone: 09-14-2019 08:35-0400 Respiratory Rate 18 /min [facility] Work Phone: 09-05-2019 10:26-0400 BMI (Body Mass Index) 37.3 kg/m2 [facility] Work Phone: 09-05-2019 10:26-0400 Body weight 111.13 kg [facility] Work Phone: 09-05-2019 10:26-0400 BSA (Body Surface Area) 2.23 m2 [facility] Work Phone: 09-05-2019 10:26-0400 Height 172.72 cm [facility] Work Phone: 08-17-2019 08:29-0400 BMI (Body Mass Index) 37.3 kg/m2 [facility] Work Phone: 08-17-2019 08:29-0400 Body Temperature 97.9 [degF] [facility] Work Phone: 08-17-2019 08:29-0400 Body weight 111.13 kg [facility] Work Phone: 08-17-2019 08:29-0400 BP Diastolic 80 mm[Hg] [facility] Work Phone: 08-17-2019 08:29-0400 BP Systolic 120 mm[Hg] [facility] Work Phone: 08-17-2019 08:29-0400 BSA (Body Surface Area) 2.23 m2 [facility] Work Phone: 08-17-2019 08:29-0400 Height 172.72 cm [facility] Work Phone: 08-17-2019 08:29-0400 Pulse (Heart Rate) 68 /min [facility] Work Phone: 08-17-2019 08:29-0400 Pulse Oximetry 98 % [facility] Work Phone: 08-17-2019 08:29-0400 Respiratory Rate 18 /min [facility] Work Phone: 07-20-2019 08:36-0500 BMI (Body Mass Index) 39 kg/m2 [facility] Work Phone: 07-20-2019 08:36-0500 Body Temperature 98.4 [degF] [facility] Work Phone: 07-20-2019 08:36-0500 Body weight 116.39 kg [facility] Work Phone: 07-20-2019 08:36-0500 BP Diastolic 80 mm[Hg] [facility] Work Phone: 07-20-2019 08:36-0500 BP Systolic 120 mm[Hg] [facility] Work Phone: 07-20-2019 08:36-0500 BSA (Body Surface Area) 2.27 m2 [facility] Work Phone: 07-20-2019 08:36-0500 Height 172.72 cm [facility] Work Phone: 07-20-2019 08:36-0500 Pulse (Heart Rate) 87 /min [facility] Work Phone: 07-20-2019 08:36-0500 Pulse Oximetry 97 % [facility] Work Phone: 07-20-2019 08:36-0500 Respiratory Rate 18 /min [facility] Work Phone: 07-06-2019 08:43-0500 BMI (Body Mass Index) 39.7 kg/m2 [facility] Work Phone: 07-06-2019 08:43-0500 Body Temperature 97.3 [degF] [facility] Work Phone: 07-06-2019 08:43-0500 Body weight 118.39 kg [facility] Work Phone: 07-06-2019 08:43-0500 BP Diastolic 82 mm[Hg] [facility] Work Phone: 07-06-2019 08:43-0500 BP Systolic 122 mm[Hg] [facility] Work Phone: 07-06-2019 08:43-0500 BSA (Body Surface Area) 2.29 m2 [facility] Work Phone: 07-06-2019 08:43-0500 Height 172.72 cm [facility] Work Phone: 07-06-2019 08:43-0500 Pulse (Heart Rate) 78 /min [facility] Work Phone: 07-06-2019 08:43-0500 Pulse Oximetry 98 % [facility] Work Phone: 07-06-2019 08:43-0500 Respiratory Rate 18 /min [facility] Work Phone: Encounters Encounter Date Encounter Type Care Provider Facility Start: 06-11-2023 End: 06-11-2023 ambulatory BRUCE GUEVARAO Not Available Start: 05-12-2023 End: 05-13-2023 ambulatory MIGUEL [facility] Start: 05-07-2023 End: 05-08-2023 ambulatory MIGUEL [facility] Start: 05-05-2023 End: 05-06-2023 ambulatory MIGUEL [facility] Start: 04-14-2023 End: 04-14-2023 ambulatory BRUCEMaame GUEVARAO Not Available Start: 03-24-2023 End: 03-27-2023 [facility] Start: 01-20-2023 End: 01-20-2023 ambulatory MIGUEL [facility] Start: 01-01-2023 End: 01-02-2023 ambulatory MIGUEL [facility] Start: 01-01-2023 Encounter for gynecological examination (general) (routine) without abnormal findings MIGUEL LEYDI [facility] Start: 01-01-2023 End: 01-01-2023 Patient encounter procedure Miguel Stewart CNP Work Phone: [facility] Start: 01-01-2023 End: 01-01-2023 Subsequent [...] patient visit Donny Hatfield DO Work Phone: [facility] ED Comment on above: Nausea vomiting and diarrhea (Primary Dx); Generalized abdominal pain Start: 09-23-2020 End: 09-24-2020 ambulatory MIGUEL HOLLEY [facility] Start: 09-23-2020 End: 09-23-2020 Subsequent hospital visit by physician Miguel Stewart CNP Work Phone: [facility] Start: 09-23-2020 End: 09-23-2020 General Jammie RODAS Work Phone: [facility] Work Phone: Start: 09-23-2020 End: 09-23-2020 Adult health examination Miguel Holley CNP Work Phone: [facility] Work Phone: Start: 09-23-2020 End: 09-23-2020 FQHC visit, estab pt Miguel Holley CNP Work Phone: [facility] Work Phone: Start: 04-08-2020 End: 04-08-2020 Emergency department patient visit Miguel Holley [facility] ED Comment on above: COVID-19 (Primary Dx ); Fatty liver Start: 03-19-2020 End: 03-19-2020 Telemedicine consultation with patient Miguel Holley Work Phone: [facility] Work Phone: Start: 03-05-2020 End: 03-05-2020 Established patient Miguel Holley Work Phone: [facility] Work Phone: Start: 12-05-2019 End: 12-05-2019 Established patient Poly Franco Work Phone: [facility] Work Phone: Start: 11-06-2019 End: 11-06-2019 Established patient Poly Franco Work Phone: [facility] Work Phone: Start: 10-12-2019 End: 10-12-2019 Patient encounter procedure Paty Short Work Phone: [facility] Work Phone: Start: 10-12-2019 End: 10-12-2019 Established patient Poly Franco Work Phone: [facility] Work Phone: Start: 09-14-2019 End: 09-14-2019 Established patient Poly Franco Work Phone: [facility] Work Phone: Start: 09-11-2019 End: 09-11-2019 Telemedicine consultation with patient Poly Franco Work Phone: [facility] Work Phone: Start: 09-05-2019 End: 09-05-2019 Telemedicine consultation with patient Poly Franco Work Phone: [facility] Work Phone: Start: 08-17-2019 End: 09-11-2019 Telemedicine consultation with patient Poly Franco Work Phone: [facility] Work Phone: Start: 08-17-2019 End: 08-17-2019 Established patient Miguel Holley Work Phone: [facility] Work Phone: Start: 07-20-2019 End: 07-20-2019 Established patient Miguel Holley Work Phone: [facility] Work Phone: Start: 07-06-2019 End: 07-06-2019 Subsequent hospital visit by physician Jackson [facility] Start: 07-06-2019 End: 07-06-2019 Established patient Anh Virk Work Phone: [facility] Work Phone: Start: 07-06-2019 End: 07-06-2019 New patient Allyson Floyd Work Phone: [facility] Work Phone: Start: 02-02-2019 End: 02-04-2019 Subsequent hospital visit by physician [facility] Ultrasound Room [facility] Ultrasound Comment on above: Encounter for intrau terine device placement Start: 08-21-2018 End: 08-23-2018 Patient encounter procedure [facility] Start: 01-04-2017 End: 01-04-2017 Emergency department patient visit [address] [facility] Facility:[id number] Procedures Date Procedure Procedure Detail Performing Clinician Start: 12-16-2021 Assay of blood/uric acid Dedrick KULKARNI-C Work Phone: Start: 12-16-2021 C-reactive protein Robel Wood PA-C Work Phone: Start: 12-04-2021 Nerve conduction heaven dies 9-10 studies Shona Lucio Start: 10-02-2021 Microscopic observat ion [Identifier] in Cervix by Cyto stain Miguel Holley DEVELOPER PROGRAMMER ANALYST - FRAMING MANAGER Work Phone: Start: 10-15-2020 Urinalysis microscop ic [...] pressure < 80 mm hg Miguel Holley [facility] Work Phone: Start: 09-23-2020 Most recent systolic blood pressure <130 mm hg Miguel Holley [facility] Work Phone: Start: 09-23-2020 Pt-focused hlth risk assmt score doc stnd instrm Miguel Holley [facility] Work Phone: Start: 09-23-2020 Antibody hiv-1&hiv-2 single result Miguel Holley [facility] Work Phone: Start: 09-23-2020 Comprehensive metabo lic panel Miguel Holley DEVELOPER PROGRAMMER ANALYST - [facility] Work Phone: Start: 04-08-2020 Ct thorax w/contrast material Ninoska Marianne Work Phone: Start: 04-08-2020 COVID-19 [facility] Work Phone: Start: 04-08-2020 Urine [...] bp ge 130 - 139mm hg Poly Salvador Work Phone: Start: 08-17-2019 Diast bp <80 [...] 07-06-2019 Assay of thyroid stimulating hormone tsh Allysonheidi Floyd Work Phone: Start: 07-06-2019 Assay of [...] in Cervix by Cyto stain Miguel Holley DEVELOPER PROGRAMMER ANALYST - FRAMING MANAGER Work Phone: NEGATED: Highlighted row has not occurred!Start: 11-06-2019 currently nursing Miguel Leydi NEGATED: Highlighted row has not occurred!Start: 11-06-2019 currently Miguel Leydi NEGATED: Highlighted row has not occurred!Start: 07-06-2019 reported medical history Miguel Holley Plan of Treatment Date Care Activity Detail Author Start: 10-02-2024 Screening for malign ant neoplasm of cervix Pap smear [facility] Start: 01-20-2023 End: 01-20-2023 Admission to same day surgery center 01/20/2023 Surgery IP Unit Vickie Nichols MD [address] [place] [address] HYSTEROSCOPY - IUD REMOVAL [facility] Comment on above: HYSTEROSCOPY - IUD R EMOVAL Start: 01-20-2023 End: 01-20-2023 Hysteroscopy removal impacted foreign body HYSTEROSCOPY Intrauterine contraceptive device threads lost, initial encounter 01/20/2023 11:10 AM EDT [facility] Start: 01-20-2023 Subsequent hospital visit by physician 01/20/2023 Hospital Encounter IP Unit Vickie Nichols MD [address] [place] [address] [facility] Start: 12-29-2022 Influenza vaccination Flu vaccine (# 1) [facility] Start: 04-27-2022 End: 04-27-2022 Patient encounter procedure [facility] Start: 01-29-2022 Influenza vaccination [facility] Start: 02-07-2021 Cervical cancer screen Cervical canc er screen [place], [place] Start: 02-07-2021 Screening for malign ant neoplasm of cervix [facility] Start: 01-29-2021 Influenza vaccination Flu vacc ine (Season Ended) [facility] Work Phone: Start: 09-30-2020 CBC W Auto Different ial panel - Blood [facility] Start: 09-30-2020 Lipid 1996 panel - S stefan or Plasma LIPID PROFILE [facility] Start: 09-23-2020 Psychiatry [facility] Work Phone: Comment on above: Note: Please make a referral to: Start: 03-26-2020 SARS-CoV-2, KAILA [facility] Work Phone: Start: 03-19-[address] Drive up Testing [facility] Work Phone: Start: 02-06-2020 Medical Establ ished Patient [facility] Work Phone: Start: 01-30-2020 Influenza vaccination Flu vaccine (# 1) [place], [place] Start: 11-09-2019 Medical Establ ished Patient [facility] Work Phone: Start: 10-11-2019 Medical Establ ished Patient [facility] Work Phone: Start: 09-14-2019 Medical Establ ished Patient [facility] Work Phone: Start: 08-17-2019 Medical Establ ished Patient [facility] Work Phone: Start: 07-20-2019 Medical Establ ished Patient [facility] Work Phone: Start: 07-13-2019 Lipid 1995 panel [facility] Work Phone: Start: 02-14-2019 End: 02-14-2019 Office Visit 02/14/2019 Office Visit Obstetrics and Gynecology Pilar Marie Blair[facility] - [facility] [address] [place] [address] [phone] [facility] 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 Start: 02-07-2019 Chlamydia screen Chlamydia screen [place], [place] Start: 02-07-2019 Screening for Chlamy valentino trachomatis Chlamydia screen [facility] Start: 01-29-2019 Influenza vaccination Flu vaccine (# 1) [place], [place] Start: 10-29-2017 DTaP/Tdap/Td vaccine (2 - Td or Tdap) DTaP/Tdap/Td vaccine (2 - Td or Tdap) [facility] Start: 10-29-2017 DTaP/Tdap/Td vaccine (2 - Td) DTaP/Tdap/Td vaccine (2 - Td) [place], [place] Start: 2014 Hepatitis C screening Hepatitis C sc reen [facility] Start: 2012 COVID-19 Vaccine (1) COVID-19 Vaccin e (1) [facility] Work Phone: Start: 2011 HIV screen HIV screen [place], [place] Start: 2011 HIV screening HIV screen [facility] Start: 2011 HPV vaccine (1 - Fem shiela 3-dose series) HPV vaccine (1 - Female 3-dose series) [place], [place] Start: 2009 Varicella Vaccine (1 of 2 - 13+ 2-dose series) Varicella Vaccine (1 of 2 - 13+ 2-dose series) [place], [place] Start: 2008 COVID-19 Vaccine (1) COVID-19 Vaccin e (1) [facility] Work Phone: Start: 2008 Depression Screen Depression Screen [facility] Start: 2007 HPV vaccine (1 - 2-d ose series) HPV vaccine (1 - 2-dose series) [facility] Start: 2007 HPV vaccine (1 - Fem shiela 2-dose series) HPV vaccine (1 - Female 2-dose series) [employer] Phone: Start: 2001 COVID-19 Vaccine (1) COVID-19 Vaccin e (1) [facility] Start: 1997 Varicella vaccine (1 of 2 - 2-dose childhood series) Varicella vaccine (1 of 2 - 2-dose childhood series) [facility] Start: 1996 COVID-19 Vaccine (#1) COVID-19 Vacci ne (#1) [facility] Start: 1996 Hepatitis C screening Hepatitis C sc reen [facility] [employer] Phone: End: 12-16-2021 GLENNY Screen with Reflex [facility] Phone: Comment on above: Once for 1 Occurrenc es starting 12/16/2021 until 12/16/2021 End: 10-02-2021 Cytopathology procedure, preparation of smear, genital source PAP SMEAR Lab Routine Women's annual routine gynecological examination 1 Occurrences starting 10/02/2021 until 10/02/2021 [facility] [employer] Phone: Comment on above: 1 Occurrences starti ng 10/02/2021 until 10/02/2021 End: 01-01-2023 Cytopathology procedure, preparation of smear, genital source PAP SMEAR Lab Routine Women's annual routine gynecological examination 1 Occurrences starting 01/01/2023 until 01/01/2023 [facility] Phone: Comment on above: 1 Occurrences starti ng 01/01/2023 until 01/01/2023 End: 12-16-2021 HLA-B27 Antigen [facility] Phone: Comment on above: Once for 1 Occurrenc es starting 12/16/2021 until 12/16/2021 End: 07-06-2019 Insulin, free Insulin, free Lab Routine Once for 1 Occurrences starting 07/06/2019 until 07/06/2019 [facility] [employer] Phone: Comment on above: Once for 1 Occurrenc es starting 07/06/2019 until 07/06/2019 Insulin, free Insulin, free La b Routine 07/06/2019 9:31 AM EST [facility] Work Phone: End: 12-16-2021 Lyme Ab MONTERROSO [email or web address] Work Phone: Comment on above: Once for 1 Occurrenc es starting 12/16/2021 until 12/16/2021 Immunizations Immunization Date Immunization Notes Care Provider Em de la cruz 10-30-2007 tetanus toxoid, redu katelyn diphtheria toxoid, and acellular pertussis vaccine, adsorbed Mth Room [facility] Payers Date Payer Category Payer Unknown [id number] 2022 Unknown [id number] 2018 Unknown [id number] 2016 Unknown [employer] [address] xxxxxxxxxxxx 2016-Present [phone] [address] [place] [address] xxxxxxxxxxxx [id number] 1996 Unknown [id number] 1996 Unknown [id number] 1996 Unknown [id number] 1996 Unknown [id number] 1996 Unknown [id number] 1996 Unknown [id number] 1996 Unknown [id number] 1996 Unknown [id number] 1996 Unknown [id number] 9 1996 Unknown [id number] 9 Unknown [id number] Social History Date Type Detail Facility Assertion [facility] Work Phone: Assertion Emotional stress (finding) [facility] Work Phone: Tobacco smoking status Unknown if ever smoked [facility] Work Phone: Assertion Sexually active (finding) [facility] Work Phone: Assertion Gender identity finding (finding) [facility] Work Phone: Assertion Finding of sexua l orientation (finding) [facility] Work Phone: Start: 10-13-2013 End: 02-07-2018 Tobacco smoking status NHIS Never smoker [place], [place] Start: 02-07-2018 End: 01-01-2023 Alcohol intake Current drinker of alcohol (finding) [facility] [employer] Phone: Start: 12-12-2015 Alcohol Comment occassionally [place], [place] Start: 1996 Sex Assigned At Not on file [place] Start: 10-13-2013 End: 04-08-2020 Tobacco use and exposure Never used [place], [place] Exposure to SARS-CoV-2 (event) Not sure [place] Start: 02-07-2018 Alcohol intake Yes [place], [place] Assertion Family illness (situation) [facility] Work Phone: Assertion Single person (finding) [facility] Work Phone: Start: *Tobacco [facility] NEGATED: Highlighted row Assertion Exposure to pollution (event) [facility] Work Phone: NEGATED: Highlighted row Assertion Tobacco user (finding) [facility] Work Phone: NEGATED: Highlighted row Assertion Current drinker of alcohol (finding) [facility] Work Phone: NEGATED: Highlighted row Assertion Finding relating to drug misuse behavior (finding) [facility] Work Phone: Mental Status Date Assessment Result Facility Cognitive function Cognitive fun ctioning was normal Cognitive function finding (finding) [facility] Work Phone: Clinical Notes 11-06-2019 to 09-23-2020 Note Date & Type Note Facility 09-23-2020 Evaluation note Includes: Assessments for all patient encounters Findings Anxiety disorder NOS Telebehavioral H ealth with Jammie RODAS 09/23/2020 Assessment of visit for: screening for human immunodeficiency virus Medical Established Patient with Miguel Leydi [facility] 09/23/2020 Diabetes Risk Test Score was three score 09/23/2020 Medical Established Patient with Miguel Leydi [facility] 09/23/2020 Morbid obesity Medical Established Patient with Miguel Leydi [facility] 09/23/2020 Routine adult history and physical (18-64 yrs) without abnormal findings Medical Established Patient with Miguel Leydi [facility] 09/23/2020 Z68.41 - Body mass index [BMI]40.0-44.9, adult Medical Established Patient with Miguel Ledyi [facility] 09/23/2020 Cough Telemedicine Establi sted Patient with Miguelcristal Holley [facility] 03/19/2020 Exposure to a viral disease Telemedicine Establisted Patient with Miguel Holley [employer] 03/19/2020 Obesity due to excess calories Telemedic ine Establisted Patient with Miguelcristal Holley [facility] 03/19/2020 Z68.37 - Body mass index [BM I] 37.0-37.9, adult Telemedicine Establisted Patient with Miguelcristal Holley FRAMING MANAGER 03/19/2020 Obesity due to excess calories Medical E stablished Patient with Miguel Holley [facility] 03/05/2020 Z68.37 - Body mass index [BM I] 37.0-37.9, adult Medical Established Patient with Miguel Holley [facility] 03/05/2020 Obesity due to excess calories Medical E stablished Patient with Poly Franco FRAMING MANAGER 12/05/2019 R21 - Rash and other nonspecific skin eruption Medical Established Patient with Poly Wagonerle FRAMING MANAGER 12/05/2019 Z68.35 - Body mass index (BM I) 35.0-35.9, adult Medical Established Patient with Poly Wagonerle FRAMING MANAGER 12/05/2019 Obesity due to excess calories Medical E stablished Patient with Polykamryn Wagonerle FRAMING MANAGER 11/06/2019 Z68.36 - Body mass index (BM I) 36.0-36.9, adult Medical Established Patient with Poly Wagonerle FRAMING MANAGER 11/06/2019 Obesity due to excess calories Medical E stablished Patient with Poly Wagonerle FRAMING MANAGER 10/12/2019 Z68.38 - Body mass index (BM I) 38.0-38.9, adult Medical Established Patient with Polykamryn Wagonerle [facility] 10/12/2019 L25.5 - Unspecified contact dermatitis due to plants, except food Medical Established Patient with Poly Wagonerle FRAMING MANAGER 09/14/2019 Obesity due to excess calories Medical E stablished Patient with Poly Salvador [facility] 09/14/2019 Z68.37 - Body mass index (BM I) 37.0-37.9, adult Medical Established Patient with Poly Wagonerle [facility] 09/14/2019 L25.5 - Unspecified contact dermatitis due to plants, except food Telemedicine with Poly Wagonerle [facility] 09/11/2019 Obesity due to excess calories Telemedic ine with Poly Salvador [facility] 09/11/2019 Z68.37 - Body mass index (BM I) 37.0-37.9, adult Telemedicine with Poly Wagonerle [facility] 09/11/2019 Dermatitis due to contact wi th poison spencer Telemedicine with Poly Wagonerle [facility] 09/05/2019 Obesity due to excess calories Telemedic ine with Poly Salvador [facility] 09/05/2019 Z68.37 - Body mass index (BM I) 37.0-37.9, adult Telemedicine with Poly Wagonerle [employer] MA[employer] 09/05/2019 Obesity due to excess calories Medical E stablished Patient with Miguel Holley [facility] 08/17/2019 Z68.37 - Body mass index (BM I) 37.0-37.9, adult Medical Established Patient with Miguel Holley FRAMING MANAGER 08/17/2019 Generalized anxiety disorder BH Establis hed Patient with Anh VIDAL 07/06/2019 Anxiety disorder NOS Medical New Patient with Allyson Floyd CNP 07/06/2019 Depression Medical New Patient with Allyson Floyd CNP 07/06/2019 Diabetes Risk Test Score was one score Medical New Patient with Allyson Floyd FRAMING MANAGER 07/06/2019 Idiopathic insomnia Medical New Patient with Allyson Floyd FRAMING MANAGER 07/06/2019 Obesity due to excess calories Medical N ew Patient with Allyson Floyd FRAMING MANAGER 07/06/2019 Z68.39 - Body mass index (BM I) 39.0-39.9 adult Medical New Patient with Allyson Floyd CNP 07/06/2019 [facility] Work Phone: [phone] History general Narrative - Reported Includes: Medical History in patient's chart Description Last Updated Not currently nursing 11/06/2019 Not 11/06/2019 No reported medical history or no signif icant history 07/06/2019 [facility] Work Phone: Evaluation note Includes: Assessments for all patient encounters Findings Encounter Date Assessment of visit for: cristóbal montoya for human immunodeficiency virus Medical Established Patient with Miguel Holley CNP 09/23/2020 Diabetes Risk Test Score was three score 09/23/2020 Medical Established Patient with Miguel Holley FRAMING MANAGER 09/23/2020 Morbid obesity Medical Established Patient with Miguel Holley FRAMING MANAGER 09/23/2020 Routine adult history and ph ysical (18-64 yrs) without abnormal findings Medical Established Patient with Miguel Holley FRAMING MANAGER 09/23/2020 Z68.41 - Body mass index [BMI]40.0-44.9, adult Medical Established Patient with Miguel Holley CNP 09/23/2020 Cough Telemedicine Establi sted Patient with Miguel Holley CNP 03/19/2020 Exposure to a viral disease Telemedicine Establisted Patient with Miguel Holley FRAMING MANAGER 03/19/2020 Obesity due to excess calories Telemedic ine Establisted Patient with Miguel Holley FRAMING MANAGER 03/19/2020 Z68.37 - Body mass index [BM I] 37.0-37.9, adult Telemedicine Establisted Patient with Miguel Holley [facility] 03/19/2020 Obesity due to excess calories Medical E stablished Patient with Miguel Holley [facility] 03/05/2020 Z68.37 - Body mass index [BM I] 37.0-37.9, adult Medical Established Patient with Miguel Holley [facility] 03/05/2020 Obesity due to excess calories Medical E stablished Patient with Poly Franco [facility] 12/05/2019 R21 - Rash and other nonspec ific skin eruption Medical Established Patient with Polykamryn Wagonerle FRAMING MANAGER 12/05/2019 Z68.35 - Body mass index (BM I) 35.0-35.9, adult Medical Established Patient with Poly Franco FRAMING MANAGER 12/05/2019 Obesity due to excess calories Medical E stablished Patient with Poly Wagonerle [facility] 11/06/2019 Z68.36 - Body mass index (BM I) 36.0-36.9, adult Medical Established Patient with Poly Franco [facility] 11/06/2019 Obesity due to excess calories Medical E stablished Patient with Poly Wagonerle [facility] 10/12/2019 Z68.38 - Body mass index (BM I) 38.0-38.9, adult Medical Established Patient with Polykamryn Wagonerle [facility] 10/12/2019 L25.5 - Unspecified contact dermatitis due to plants, except food Medical Established Patient with Poly Wagonerle [facility] 09/14/2019 Obesity due to excess calories Medical E stablished Patient with Poly Wagonerle [facility] 09/14/2019 Z68.37 - Body mass index (BM I) 37.0-37.9, adult Medical Established Patient with Polykamryn Wagonerle [facility] 09/14/2019 L25.5 - Unspecified contact dermatitis due to plants, except food Telemedicine with Poly Wagonerle [facility] 09/11/2019 Obesity due to excess calories Telemedicine with Polykamryn Wagonerle [facility] 09/11/2019 Z68.37 - Body mass index (BM I) 37.0-37.9, adult Telemedicine with Poly Wagonerle [facility] 09/11/2019 Dermatitis due to contact wi th poison spencer Telemedicine with Poly Wagonerle [facility] 09/05/2019 Obesity due to excess calories Telemedicine with Poly Wagonerle [facility] 09/05/2019 Z68.37 - Body mass index (BM I) 37.0-37.9, adult Telemedicine with Poly Franco FRAMING MANAGER 09/05/2019 Obesity due to excess calories Medical E stablished Patient with Migule Holley FRAMING MANAGER 08/17/2019 Z68.37 - Body mass index (BM I) 37.0-37.9, adult Medical Established Patient with Miguel Holley FRAMING MANAGER 08/17/2019 Generalized anxiety disorder BH Establis hed Patient with Anh FERNANDEZS 07/06/2019 Anxiety disorder NOS Medical New Patient with Allyson Floyd FRAMING MANAGER 07/06/2019 Depression Medical New Patient with Allyson Floyd FRAMING MANAGER 07/06/2019 Diabetes Risk Test Score was one score M edical New Patient with Allyson Floyd [facility] 07/06/2019 Idiopathic insomnia Medical New Patient with Allyson Floyd FRAMING MANAGER 07/06/2019 Obesity due to excess calories Medical N ew Patient with Allyson Floyd [facility] 07/06/2019 Z68.39 - Body mass index (BM I) 39.0-39.9 adult Medical New Patient with Allyson Floyd [facility] 07/06/2019 [facility] [employer] [facility] Work Phone: Evaluation note* Diagnosis Nausea vomiting and diarrhea- Primary Nausea with vomiting Generalized abdominal pain Abdominal pain, generalized [facility]* Diagnosis Women's annual routine gynecological examination [facility]* Diagnosis Women's annual routine gynecological examination Intrauterine contraceptive device threads lost, initial encounter documented in this encounter [facility] Narrative History of Present Illness not supported for this document type No History of Present Illness [facility] [employer] [facility] Work Phone: Hospital Discharge instructions* Attachments The following attachments cannot be sent through Care Everywhere. * Abdominal Pain ([place]) * Nausea and Vomiting ([place]) * Diarrhea ([place]) [email or web address]: Instructions Instructions not supported for this document type No Instructions [facility] [employer] [facility] Work Phone: Patient problem outcome Narrative Includes: Evaluations & Outcomes for active Goals No Outcomes [facility] [employer] [facility] Work Phone: Reason for referral (narrative)No Reason for Referral [facility] Work Phone: Review of systems Narrative - Reported Review of Systems not supported for this document type No Review of Systems [facility] Work Phone: Summary Purpose Family History No Family History Records Found Description Last Updated Maternal history of rheumatoid arthritis 07/06/2019 Maternal history of rheumatologic disord er Fibromyalgia 07/06/2019 Maternal history of systemic lupus eryth ematosus 07/06/2019 Paternal history of type 1 diabetes marino itus 07/06/2019 Advance Directives No Advanced Directives Records FoundDocuments on File Type Date Recorded 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 Advance Directives and Living Will Power of Nurse Office Documents on File Type Date Recorded 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 ACP-Advance Directive ACP-Power of Nurse Office Documents on File Type Date Recorded 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 Advance Directives and Living Will Power of Nurse Office Reason for Referral No Reason for Referral [...] disorder NOS Medical New Patient with Allyson [place] FRAMING MANAGER 07/06/2019 Depression Medical New Patient with Allyson [place] FRAMING MANAGER 07/06/2019 Diabetes Risk Test Score was one score Medical New Patient with Allyson [place] FRAMING MANAGER 07/06/2019 Idiopathic insomnia Medical New Patient with Allyson [place] FRAMING MANAGER 07/06/2019 Obesity due to excess calories Medical N ew Patient with Allyson [place] FRAMING MANAGER 07/06/2019 Z68.39 - Body mass index (BM I) 39.0-39.9 adult Medical New Patient with Allyson [place] FRAMING MANAGER 07/06/2019 Findings Encounter Date Obesity due to excess calories Medical E stablished Patient with Poly Franco FRAMING MANAGER 10/12/2019 Z68.38 - Body mass index (BM I) 38.0-38.9, adult Medical Established Patient with Poly Franco [facility] 10/12/2019 L25.5 - Unspecified contact dermatitis due to plants, except food Medical Established Patient with Poly Franco FRAMING MANAGER 09/14/2019 Obesity due to excess calories Medical E stablished Patient with Poly Franco [facility] 09/14/2019 Z68.37 - Body mass index (BM I) 37.0-37.9, adult Medical Established Patient with Poly Franco [facility] 09/14/2019 L25.5 - Unspecified contact dermatitis due to plants, except food Telemedicine with Poly Franco [facility] 09/11/2019 Obesity due to excess calories Telemedicine with Poly Franco [facility] 09/11/2019 Z68.37 - Body mass index (BM I) 37.0-37.9, adult Telemedicine with Poly Franco [facility] 09/11/2019 Dermatitis due to contact wi th poison spencer Telemedicine with Poly Franco [facility] 09/05/2019 Obesity due to excess calories Telemedicine with Ploy Franco [facility] 09/05/2019 Z68.37 - Body mass index (BM I) 37.0-37.9, adult Telemedicine with Poly Franco [facility] 09/05/2019 Obesity due to excess calories Medical E stablished Patient with Miguel Holley [facility] 08/17/2019 Z68.37 - Body mass index (BM I) 37.0-37.9, adult Medical Established Patient with Miguel Holley [facility] 08/17/2019 Generalized anxiety disorder BH Establis hed Patient with Anh VIDAL 07/06/2019 Anxiety disorder NOS Medical New Patient with Allyson Everett FRAMING MANAGER 07/06/2019 Depression Medical New Patient with Allyson [place] FRAMING MANAGER 07/06/2019 Diabetes Risk Test Score was one score Medical New Patient with Allyson [place] FRAMING MANAGER 07/06/2019 Idiopathic insomnia Medical New Patient with Allyson [place] FRAMING MANAGER 07/06/2019 Obesity due to excess calories Medical N ew Patient with Allyson [place] FRAMING MANAGER 07/06/2019 Z68.39 - Body mass index (BM I) 39.0-39.9 adult Medical New Patient with Allyson [place] FRAMING MANAGER 07/06/2019 Findings Encounter Date Obesity due to excess calories Medical E stablished Patient with Miguel Leydi [facility] 08/17/2019 Z68.37 - Body mass index (BM I) 37.0-37.9, adult Medical Established Patient with Miguel Leydi FRAMING MANAGER 08/17/2019 Generalized anxiety disorder BH Establis hed Patient with Anhbrad Virk [employer] 07/06/2019 Anxiety disorder NOS Medical New Patient with Allyson Everett FRAMING MANAGER 07/06/2019 Depression Medical New Patient with Allyson Everett FRAMING MANAGER 07/06/2019 Diabetes Risk Test Score was one score Medical New Patient with Allyson [place] FRAMING MANAGER 07/06/2019 Idiopathic insomnia Medical New Patient with Allyson [place] FRAMING MANAGER 07/06/2019 Obesity due to excess calories Medical N ew Patient with Allyson Everett FRAMING MANAGER 07/06/2019 Z68.39 - Body mass index (BM I) 39.0-39.9 adult Medical New Patient with Allyson [place] FRAMING MANAGER 07/06/2019 Findings Encounter Date Dermatitis due to contact wi th poison spencer Telemedicine with Poly Salvador FRAMING MANAGER 09/05/2019 Obesity due to excess calories Telemedicine with Poly Salvador FRAMING MANAGER 09/05/2019 Z68.37 - Body mass index (BM I) 37.0-37.9, adult Telemedicine with Poly Salvador FRAMING MANAGER 09/05/2019 Obesity due to excess calories Medical E stablished Patient with Miguel Leydi FRAMING MANAGER 08/17/2019 Z68.37 - Body mass index (BM I) 37.0-37.9, adult Medical Established Patient with Miguel Elydi FRAMING MANAGER 08/17/2019 Generalized anxiety disorder BH Establis hed Patient with Anh Virk [employer] 07/06/2019 Anxiety disorder NOS Medical New Patient with Allyson Everett FRAMING MANAGER 07/06/2019 Depression Medical New Patient with Allyson Everett FRAMING MANAGER 07/06/2019 Diabetes Risk Test Score was one score Medical New Patient with Allyson [place] FRAMING MANAGER 07/06/2019 Idiopathic insomnia Medical New Patient with Allyson Everett FRAMING MANAGER 07/06/2019 Obesity due to excess calories Medical N ew Patient with Allyson Everett FRAMING MANAGER 07/06/2019 Z68.39 - Body mass index (BM I) 39.0-39.9 adult Medical New Patient with Allyson Everett FRAMING MANAGER 07/06/2019 Findings Encounter Date L25.5 - Unspecified contact dermatitis due to plants, except food Telemedicine with Poly Salvador FRAMING MANAGER 09/11/2019 Obesity due to excess calories Telemedicine with Poly Salvador FRAMING MANAGER 09/11/2019 Z68.37 - Body mass index (BM I) 37.0-37.9, adult Telemedicine with Poly Franco [facility] 09/11/2019 Dermatitis due to contact wi th poison spencer Telemedicine with Poly Franco [facility] 09/05/2019 Obesity due to excess calories Telemedicine with Poly Franco [facility] 09/05/2019 Z68.37 - Body mass index (BM I) 37.0-37.9, adult Telemedicine with Poly Franco FRAMING MANAGER 09/05/2019 Obesity due to excess calories Medical E stablished Patient with Miguel Holley [facility] 08/17/2019 Z68.37 - Body mass index (BM I) 37.0-37.9, adult Medical Established Patient with Miguel Holley [facility] 08/17/2019 Generalized anxiety disorder BH Establis hed Patient with Anh VIDAL 07/06/2019 Anxiety disorder NOS Medical New Patient with Allyson Floyd FRAMING MANAGER 07/06/2019 Depression Medical New Patient with Allyson Nye [facility] 07/06/2019 Diabetes Risk Test Score was one score Medical New Patient with Allyson Everett [facility] 07/06/2019 Idiopathic insomnia Medical New Patient with Allyson Nye FRAMING MANAGER 07/06/2019 Obesity due to excess calories Medical N ew Patient with Allyson Everett [facility] 07/06/2019 Z68.39 - Body mass index (BM I) 39.0-39.9 adult Medical New Patient with Allyson Floyd [facility] 07/06/2019 Findings Encounter Date L25.5 - Unspecified contact dermatitis due to plants, except food Medical Established Patient with Poly Franco [facility] 09/14/2019 Obesity due to excess calories Medical E stablished Patient with Poly Wagonerle [facility] 09/14/2019 Z68.37 - Body mass index (BM I) 37.0-37.9, adult Medical Established Patient with Poly Franco [facility] 09/14/2019 L25.5 - Unspecified contact dermatitis due to plants, except food Telemedicine with Poly Wagonerle [facility] 09/11/2019 Obesity due to excess calories Telemedicine with Poly Wagonerle [facility] 09/11/2019 Z68.37 - Body mass index (BM I) 37.0-37.9, adult Telemedicine with Poly Franco [facility] 09/11/2019 Dermatitis due to contact wi th poison spencer Telemedicine with Poly Franco [facility] 09/05/2019 Obesity due to excess calories Telemedicine with Poly Franco FRAMING MANAGER 09/05/2019 Z68.37 - Body mass index (BM I) 37.0-37.9, adult Telemedicine with Poly Franco FRAMING MANAGER 09/05/2019 Obesity due to excess calories Medical E stablished Patient with Miguel Holley FRAMING MANAGER 08/17/2019 Z68.37 - Body mass index (BM I) 37.0-37.9, adult Medical Established Patient with Miguel Holley FRAMING MANAGER 08/17/2019 Generalized anxiety disorder BH Establis hed Patient with Anh RODAS-S 07/06/2019 Anxiety disorder NOS Medical New Patient with Allyson Nye FRAMING MANAGER 07/06/2019 Depression Medical New Patient with Allyson Nye FRAMING MANAGER 07/06/2019 Diabetes Risk Test Score was one score Medical New Patient with Allyson Everett FRAMING MANAGER 07/06/2019 Idiopathic insomnia Medical New Patient with Allyson [place] FRAMING MANAGER 07/06/2019 Obesity due to excess calories Medical N ew Patient with Allyson [place] FRAMING MANAGER 07/06/2019 Z68.39 - Body mass index (BM I) 39.0-39.9 adult Medical New Patient with Allyson Floyd FRAMING MANAGER 07/06/2019 Findings Encounter Date Obesity due to excess calories Medical E stablished Patient with Poly Wagonerle FRAMING MANAGER 11/06/2019 Z68.36 - Body mass index (BM I) 36.0-36.9, adult Medical Established Patient with Poly Wagonerle FRAMING MANAGER 11/06/2019 Obesity due to excess calories Medical E stablished Patient with Poly Wagonerle [facility] 10/12/2019 Z68.38 - Body mass index (BM I) 38.0-38.9, adult Medical Established Patient with Poly Salvador FRAMING MANAGER 10/12/2019 L25.5 - Unspecified contact dermatitis due to plants, except food Medical Established Patient with Poly Salvador FRAMING MANAGER 09/14/2019 Obesity due to excess calories Medical E stablished Patient with Poly Salvador FRAMING MANAGER 09/14/2019 Z68.37 - Body mass index (BM I) 37.0-37.9, adult Medical Established Patient with Poly Salvador FRAMING MANAGER 09/14/2019 L25.5 - Unspecified contact dermatitis due to plants, except food Telemedicine with Poly Salvador FRAMING MANAGER 09/11/2019 Obesity due to excess calories Telemedicine with Poly Salvador FRAMING MANAGER 09/11/2019 Z68.37 - Body mass index (BM I) 37.0-37.9, adult Telemedicine with Poly Wagonerle FRAMING MANAGER 09/11/2019 Dermatitis due to contact wi th poison spencer Telemedicine with Poly Wagonerle FRAMING MANAGER 09/05/2019 Obesity due to excess calories Telemedicine with Poly Wagonerle FRAMING MANAGER 09/05/2019 Z68.37 - Body mass index (BM I) 37.0-37.9, adult Telemedicine with Poly Franco FRAMING MANAGER 09/05/2019 Obesity due to excess calories Medical E stablished Patient with Miguel Holley FRAMING MANAGER 08/17/2019 Z68.37 - Body mass index (BM I) 37.0-37.9, adult Medical Established Patient with Miguel Holley FRAMING MANAGER 08/17/2019 Generalized anxiety disorder BH Establis hed Patient with Anh VIDAL 07/06/2019 Anxiety disorder NOS Medical New Patient with Allyson Nye FRAMING MANAGER 07/06/2019 Depression Medical New Patient with Allyson Nye FRAMING MANAGER 07/06/2019 Diabetes Risk Test Score was one score Medical New Patient with Allyson Everett FRAMING MANAGER 07/06/2019 Idiopathic insomnia Medical New Patient with Allyson Everett FRAMING MANAGER 07/06/2019 Obesity due to excess calories Medical N ew Patient with Allyson Everett FRAMING MANAGER 07/06/2019 Z68.39 - Body mass index (BM I) 39.0-39.9 adult Medical New Patient with Allyson Nye FRAMING MANAGER 07/06/2019 Findings Encounter Date Obesity due to excess calories Medical E stablished Patient with Poly Wagonerle FRAMING MANAGER 12/05/2019 R21 - Rash and other nonspec [facility] skin eruption Medical Established Patient with Poly Salvador FRAMING MANAGER 12/05/2019 Z68.35 - Body mass index (BM I) 35.0-35.9, adult Medical Established Patient with Poly Salvador FRAMING MANAGER 12/05/2019 Obesity due to excess calories Medical E stablished Patient with Poly Salvador FRAMING MANAGER 11/06/2019 Z68.36 - Body mass index (BM I) 36.0-36.9, adult Medical Established Patient with Poly Salvador FRAMING MANAGER 11/06/2019 Obesity due to excess calories Medical E stablished Patient with Poly Salvador FRAMING MANAGER 10/12/2019 Z68.38 - Body mass index (BM I) 38.0-38.9, adult Medical Established Patient with Poly Frnaco FRAMING MANAGER 10/12/2019 L25.5 - Unspecified contact dermatitis due to plants, except food Medical Established Patient with Poly Franco FRAMING MANAGER 09/14/2019 Obesity due to excess calories Medical E stablished Patient with Poly Wagonerle [facility] 09/14/2019 Z68.37 - Body mass index (BM I) 37.0-37.9, adult Medical Established Patient with Poly Franco [facility] 09/14/2019 L25.5 - Unspecified contact dermatitis due to plants, except food Telemedicine with Poly Franco [facility] 09/11/2019 Obesity due to excess calories [facility] Z68.37 - Body mass index (BM I) 37.0-37.9, adult Telemedicine with Poly Franco [facility] 09/11/2019 Dermatitis due to contact wi th poison spencer Telemedicine with Poly Franco [facility] 09/05/2019 Obesity due to excess calories Telemedicine with Poly Franco [facility] 09/05/2019 Z68.37 - Body mass index (BM I) 37.0-37.9, adult Telemedicine with Poly Franco [facility] 09/05/2019 Obesity due to excess calories Medical E stablished Patient with Miguel Anguloen [facility] 08/17/2019 Z68.37 - Body mass index (BM I) 37.0-37.9, adult Medical Established Patient with Miguel Holley [facility] 08/17/2019 Generalized anxiety disorder BH Establis hed Patient with Anh VIDAL 07/06/2019 Anxiety disorder NOS Medical New Patient with Allyson [place] FRAMING MANAGER 07/06/2019 Depression Medical New Patient with Allyson [place] FRAMING MANAGER 07/06/2019 Diabetes Risk Test Score was one score Medical New Patient with Allyson [place] FRAMING MANAGER 07/06/2019 Idiopathic insomnia Medical New Patient with Allyson [place] FRAMING MANAGER 07/06/2019 Obesity due to excess calories Medical N ew Patient with Allyson Everett FRAMING MANAGER 07/06/2019 Z68.39 - Body mass index (BM I) 39.0-39.9 adult Medical New Patient with Allyson [place] FRAMING MANAGER 07/06/2019 Findings Encounter Date Obesity due to excess calories Medical E stablished Patient with Miguel Leydi FRAMING MANAGER 03/05/2020 Z68.37 - Body mass index [BM I] 37.0-37.9, adult Medical Established Patient with Miguel Holley FRAMING MANAGER 03/05/2020 Obesity due to excess calories Medical E stablished Patient with Poly Franco FRAMING MANAGER 12/05/2019 R21 - [facility] Patient with Poly Salvador FRAMING MANAGER 12/05/2019 Z68.35 - Body mass index (BM I) 35.0-35.9, adult Medical Established Patient with Poly Wagonerle FRAMING MANAGER 12/05/2019 Obesity due to excess calories Medical E stablished Patient with Poly Salvador FRAMING MANAGER 11/06/2019 Z68.36 - Body mass index (BM I) 36.0-36.9, adult Medical Established Patient with Ploy Wagonerle FRAMING MANAGER 11/06/2019 Obesity due to excess calories Medical E stablished Patient with Poly Salvador FRAMING MANAGER 10/12/2019 Z68.38 - Body mass index (BM I) 38.0-38.9, adult Medical Established Patient with Polykamryn Wagonerle [facility] 10/12/2019 L25.5 - Unspecified contact dermatitis due to plants, except food Medical Established Patient with Polykamryn Wagonerle FRAMING MANAGER 09/14/2019 Obesity due to excess calories Medical E stablished Patient with Poly Salvador FRAMING MANAGER 09/14/2019 Z68.37 - Body mass index (BM I) 37.0-37.9, adult Medical Established Patient with Polykamryn Wagonerle FRAMING MANAGER 09/14/2019 L25.5 - Unspecified contact dermatitis due to plants, except food Telemedicine with Poly Wagonerle [facility] 09/11/2019 Obesity due to excess calories Telemedicine with Poly Wagonerle [facility] 09/11/2019 Z68.37 - Body mass index (BM I) 37.0-37.9, adult Telemedicine with Poly Salvador [facility] [facility] 09/11/2019 Dermatitis due to contact wi th poison spencer Telemedicine with Polykamryn Wagonerle [facility] 09/05/2019 Obesity due to excess calories Telemedicine with Polykamryn Wagon[place]le [facility] 09/05/2019 Z68.37 - Body mass index (BM I) 37.0-37.9, adult Telemedicine with Poly Wagonerle [employer] 09/05/2019 Obesity due to excess calories Medical E stablished Patient with Miguel Holley [facility] 08/17/2019 Z68.37 - Body mass index (BM I) 37.0-37.9, adult Medical Established Patient with Miguel Holley [employer] MA[employer] 08/17/2019 Generalized anxiety disorder BH Establis hed Patient with Anh VIDAL 07/06/2019 Anxiety disorder NOS Medical New Patient with Allyson Floyd [employer]ING MANAGER 07/06/2019 Depression Medical New Patient with Allyson Floyd FRAMING MANAGER 07/06/2019 Diabetes Risk Test Score was one score Medical New Patient with Allyson Floyd [employer]AMING MANAGER 07/06/2019 Idiopathic insomnia Medical New Patient with Allyson Floyd [employer]AMING MANAGER 07/06/2019 Obesity due to excess calories Medical N ew Patient with Allyson Floyd FRAMING MANAGER 07/06/2019 Z68.39 - Body mass index (BM I) 39.0-39.9 adult Medical New Patient with Allyson Floyd [employer]AMING MANAGER 07/06/2019 Findings Encounter Date Cough Telemedicine Establi sted Patient with Miguel Holley FRAMING MANAGER 03/19/2020 Exposure to a viral disease Telemedicine Establisted Patient with Miguel Holley [employer]AMING MANAGER 03/19/2020 Obesity due to excess calories Telemedic ine Establisted Patient with Miguel Holley [employer]AMING MANAGER 03/19/2020 Z68.37 - Body mass index [BM I] 37.0-37.9, adult Telemedicine Establisted Patient with Miguel Holley FRAMING MANAGER 03/19/2020 Obesity due to excess calories Medical E stablished Patient with Miguel Holley FRAMING MANAGER 03/05/2020 Z68.37 - Body mass index [BM I] 37.0-37.9, adult Medical Established Patient with Miguel Holley FRAMING MANAGER 03/05/2020 Obesity due to excess calories Medical E stablished Patient with Poly Salvador [employer]AMING MANAGER 12/05/2019 R21 - Rash and other nonspec [facility] skin eruption Medical Established Patient with Poly Salvador FRAMING MANAGER 12/05/2019 Z68.35 - Body mass index (BM I) 35.0-35.9, adult Medical Established Patient with Poly Salvador [employer]AMING MANAGER 12/05/2019 Obesity due to excess calories Medical E stablished Patient with Poly Salvador [employer]AMING MANAGER 11/06/2019 Z68.36 - Body mass index (BM I) 36.0-36.9, adult Medical Established Patient with Poly Salvador [employer]ING MANAGER 11/06/2019 Obesity due to excess calories Medical E stablished Patient with Poly Salvador FRAMING MANAGER 10/12/2019 Z68.38 - Body mass index (BM I) 38.0-38.9, adult Medical Established Patient with Poly Franco [facility] 10/12/2019 L25.5 - Unspecified contact dermatitis due to plants, except food Medical Established Patient with Poly Franco [employer]AMING MANAGER 09/14/2019 Obesity due to excess calories Medical E stablished Patient with Poly Franco [facility] 09/14/2019 Z68.37 - Body mass index (BM I) 37.0-37.9, adult Medical Established Patient with Poly Franco [facility] 09/14/2019 L25.5 - Unspecified contact dermatitis due to plants, except food Telemedicine with Poly Franco [facility] 09/11/2019 Obesity due to excess calories Telemedicine with Poly Franco [facility] 09/11/2019 Z68.37 - Body mass index (BM I) 37.0-37.9, adult Telemedicine with Poly Franco [facility] 09/11/2019 Dermatitis due to contact wi th poison spencer Telemedicine with Poly Franco [facility] 09/05/2019 Obesity due to excess calories Telemedicine with Poly Franco [facility] 09/05/2019 Z68.37 - Body mass index (BM I) 37.0-37.9, adult Telemedicine with Poly Franco [facility] 09/05/2019 Obesity due to excess calories Medical E stablished Patient with Miguel Holley [facility] 08/17/2019 Z68.37 - Body mass index (BM I) 37.0-37.9, adult Medical Established Patient with Miguel Holley [facility] 08/17/2019 Generalized anxiety disorder BH Establis hed Patient with Anh VIDAL 07/06/2019 Anxiety disorder NOS Medical New Patient with Allyson Floyd FRAMING MANAGER 07/06/2019 Depression Medical New Patient with Allyson Everett FRAMING MANAGER 07/06/2019 Diabetes Risk Test Score was one score Medical New Patient with Allyson Everett FRAMING MANAGER 07/06/2019 Idiopathic insomnia Medical New Patient with Allyson Everett FRAMING MANAGER 07/06/2019 Obesity due to excess calories Medical N ew Patient with Allyson [place] FRAMING MANAGER 07/06/2019 Z68.39 - Body mass index (BM I) 39.0-39.9 adult Medical New Patient with Allyson Everett FRAMING MANAGER 07/06/2019 Diagnosis COVID-19 Fatty liver Other chronic [...] Everywhere. * Coronavirus Disease (COVID-19): General Info ([place]i) documented in this encounter Additional Source Comments INFORMATION SOURCE (unrecogn ized section and content) DATE CREATED AUTHOR 11/24/2017 [facility] DATE CREATED AUTHOR AUTHOR'S ORGANIZ ATION 08/26/2018 [facility] DATE CREATED AUTHOR AUTHOR'S ORGANIZ ATION 09/24/2020 [facility] DATE CREATED AUTHOR AUTHOR'S ORGANIZ ATION 05/14/2023 [facility] DATE CREATED AUTHOR AUTHOR'S ORGANIZ ATION 06/12/2023 [facility] Special[facility] EPIC Evaluations & Outcomes (unre [...] US TRANSVAGINAL, NON OB Dana Akins MD [address] [place] [id number] [facility] Ultrasound [address] [place] [address] Reason Comments Emesis multiple episodes si nce [...] Care Teams (unrecognized sec tion and content) Ecd Relationship Specialty Start Date End Date Miguel Holley APRN [facility] PCP - General Family Medicine 04/08/20 Ecd Relationship Specialty Start Date End Date Miguel Holley DEVELOPER [employer]GRAMMER [employer] [facility] PCP - General Family Medicine 04/08/20 Ecd Relationship Specialty Start Date End Date Miguel Holley DEVELOPER PROGRAMMER ANALYST [facility] PCP - General Family Medicine 04/08/20 FOR [...] BE BASED ON THE PRIMARY CLINICAL RECORDS. [employer] [facility]. provides no warranty or guarantee of the accuracy or completeness of information in this document.
--- NOTE | 2023-06-23 09:28 | US_ITS ---
[address] [address] Patient Name: TARA FLOREZ MRN: [id number] date: 1995 Sex: F Assigned Patient Location: [facility] Current Patient Location: [facility] Accession/Order Number: [id number] Exam Date: 06/23/2023 09:30 Report Date: 06/23/2023 10:07 At the request of: BRUCE CARD Procedure: US OB transvaginal EXAMINATION: US OB transvaginal HISTORY: VAGINAL BLEEDING, VIABILITY COMPARISON: 06/11/2023 FINDINGS: Conde intrauterine gestation Gestational sac: 5.37 cm, 11 weeks 2 days CRL: 5.01 cm, 5 days Yolk sac: 0.6 cm Heart rate: 171 bpm Cervix: Closed, 4.0 cm The uterus is normal, anteverted, anteflexed The left ovary is not visualized Clinical age: 11 weeks 6 days Clinical CARTER: 01/06/2024 Ultrasound age: 11 weeks 5 days Ultrasound CARTER: 01/07/2024 US/US OB transvaginal IMPRESSION: Viable conde intrauterine gestation measuring 11 weeks 5 days Electronically authenticated by: KURT STONE Date: 06/23/2023 10:07
== END 2023-06-23 09:00 | disposition home or self-care (01) ==
LOC: NOMS 09:00
PROVIDERS: Visit Provider Obstetrics & Gynecology
DX: O36.80X0 Pregnancy with inconclusive fetal viability, not applicable or unspecified (principal); Z3A.11 11 weeks gestation of pregnancy
CPT/HCPCS: 76817

== ENCOUNTER 2023-08-19 10:06 | Outpatient (OUT) | payer OTHER, SELFPAY ==
--- NOTE | 2023-08-19 10:08 | US_ITS ---
[address] [address] Patient Name: TARA FLOREZ MRN: [id number] date: 1995 Sex: F Assigned Patient Location: [facility] Current Patient Location: [facility] Accession/Order Number: [id number] Exam Date: 08/19/2023 10:08 Report Date: 08/19/2023 11:33 At the request of: BRUCE CARD Procedure: US OB cervical length EXAMINATION: US OB anatomy, US OB cervical length HISTORY: ANATOMY COMPARISON: No relevant comparison available. TECHNIQUE: Transabdominal sonographic examination was performed for obstetrical and evaluation. FINDINGS: Number: 1 Heart Rate: 171.0 bpm H.B. /min Amniotic Fluid Volume: Subjectively normal Placental Location: POSTERIOR with lower margin 2.4 cm from os. Cervix Length: 4.1 cm, closed. ANATOMY: Normal Structures -cerebellum, choroid plexus, cisterna magna, lateral cerebral ventricles, orbits, midline falx, hard palate, stomach, kidneys, bladder, umbilical cord insertion into abdomen, three-vessel cord, cervical spine, thoracic spine, lumbar spine, sacral spine, right upper extremity, left upper extremity, right lower extremity, left lower extremity. SUBOPTIMALLY SEEN: Four-chamber heart and cardiac outflow tracts. ABNORMALITIES: None BIOMETRY: BPD: 4.4 cm 19 weeks 3 days HC: 17.7 cm 20 weeks 1 days AC: 14.6 cm 19 weeks 6 days FL: 3.5 cm 20 weeks 6 days EFW:345.6 grams; 64% FL/AC: 23.7 FL/BPD: 77.9 HC/AC: 1.2 GESTATIONAL AGE: Age by EDC: 20 weeks 0 days CARTER by EDC: 01/06/2024 Age by current US: 20 weeks 1 days CARTER by current US: 01/05/2024 US/US OB cervical length IMPRESSION: 1. Single live intrauterine with growth detailed above. 2. Suboptimal visualization of the four-chamber heart and cardiac outflow tracts due to position. 3. Posterior low-lying placenta. Electronically authenticated by: ARPITA MOLINA Date: 08/19/2023 11:33
--- NOTE | 2023-08-19 10:08 | US_ITS ---
[address] [address] Patient Name: TARA FLOREZ MRN: [id number] date: 1995 Sex: F Assigned Patient Location: [facility] Current Patient Location: [facility] Accession/Order Number: [id number] Exam Date: 08/19/2023 10:08 Report Date: 08/19/2023 11:33 At the request of: BRUCE CARD Procedure: US OB anatomy EXAMINATION: US OB anatomy, US OB cervical length HISTORY: ANATOMY COMPARISON: No relevant comparison available. TECHNIQUE: Transabdominal sonographic examination was performed for obstetrical and evaluation. FINDINGS: Number: 1 Heart Rate: 171.0 bpm H.B. /min Amniotic Fluid Volume: Subjectively normal Placental Location: POSTERIOR with lower margin 2.4 cm from os. Cervix Length: 4.1 cm, closed. ANATOMY: Normal Structures -cerebellum, choroid plexus, cisterna magna, lateral cerebral ventricles, orbits, midline falx, hard palate, stomach, kidneys, bladder, umbilical cord insertion into abdomen, three-vessel cord, cervical spine, thoracic spine, lumbar spine, sacral spine, right upper extremity, left upper extremity, right lower extremity, left lower extremity. SUBOPTIMALLY SEEN: Four-chamber heart and cardiac outflow tracts. ABNORMALITIES: None BIOMETRY: BPD: 4.4 cm 19 weeks 3 days HC: 17.7 cm 20 weeks 1 days AC: 14.6 cm 19 weeks 6 days FL: 3.5 cm 20 weeks 6 days EFW:345.6 grams; 64% FL/AC: 23.7 FL/BPD: 77.9 HC/AC: 1.2 GESTATIONAL AGE: Age by EDC: 20 weeks 0 days CARTER by EDC: 01/06/2024 Age by current US: 20 weeks 1 days CARTER by current US: 01/05/2024 US/US OB anatomy IMPRESSION: 1. Single live intrauterine with growth detailed above. 2. Suboptimal visualization of the four-chamber heart and cardiac outflow tracts due to position. 3. Posterior low-lying placenta. Electronically authenticated by: ARPITA MOLINA Date: 08/19/2023 11:33
== END 2023-08-19 10:07 | disposition home or self-care (01) ==
LOC: NOMS 10:06
PROVIDERS: Visit Provider Obstetrics & Gynecology
DX: Z36.89 Encounter for other specified antenatal screening (principal); O44.42 Low lying placenta NOS or without hemorrhage, second trimester; Z3A.20 20 weeks gestation of pregnancy
CPT/HCPCS: 76805; 76817

== ENCOUNTER 2023-09-16 09:56 | Outpatient (OUT) | payer OTHER, SELFPAY ==
--- NOTE | 2023-09-16 09:58 | US_ITS ---
[address] [address] Patient Name: TARA FLOREZ MRN: [id number] date: 1995 Sex: F Assigned Patient Location: [facility] Current Patient Location: [facility] Accession/Order Number: [id number] Exam Date: 09/16/2023 09:58 Report Date: 09/16/2023 11:19 At the request of: BRUCE CARD Procedure: US OB follow up EXAMINATION: US OB follow up HISTORY: INCOMPLETE ANATOMY COMPARISON: Ultrasound OB anatomy 08/19/2023 FINDINGS: Heart rate: 167 bpm Presentation: Cephalic Placenta: Posterior with lower margin 4.5 cm from os. Anatomy: Four-chamber heart, LVOT, RVOT GA: 24 weeks 0 days CARTER: 01/06/2024 US/US OB follow up IMPRESSION: 1. Single live intrauterine . 2. Adequate visualization of the heart and cardiac outflow tracts; no appreciable abnormality. 2. Posterior placenta which is no longer low-lying. Electronically authenticated by: ARPITA MOLINA Date: 09/16/2023 11:19
== END 2023-09-16 09:57 | disposition home or self-care (01) ==
LOC: NOMS 09:56
PROVIDERS: Visit Provider Obstetrics & Gynecology
DX: Z36.2 Encounter for other antenatal screening follow-up (principal)
CPT/HCPCS: 76816

== ENCOUNTER 2023-10-04 11:45 | Observation (INO) | payer OTHER, SELFPAY ==
[2023-10-04 12:04] VITALS: BP 116/71; PULSE 102; TEMP 36.6
--- OUTSIDE RECORDS SUMMARY | 2023-10-04 12:15 | XMS_ITS | CCD ---
Author Organization [facility] Care Team Providers Care Applique Sewer Name Role Phone NO FAMILY PHYSICIAN, [phone] Unavailable Unavail able FELIX GALVAN Unavailable Unavailable Miguel Holley Primary Care Provider Jackson Haas Primary Care Provider [phone] Miguel Holley Primary Care Provider Miguel Holley Primary Care Provider Miguel Holley CNP Primary Care Provider Leydi AIR TRAFFIC CONTROL MANAGER - MAGNETIC TESTING TECHNICIAN, Miguel M Primary Care Provider LEYDI MIGUEL M Referring Unavailable LEYDI, MIGUEL M Primary Care Unavailable Leydi AIR TRAFFIC CONTROL MANAGER - MAGNETIC TESTING TECHNICIAN, Miguel M Primary Care Provider Leydi AIR TRAFFIC CONTROL MANAGER - MAGNETIC TESTING TECHNICIAN, Miguel M Primary Care Provider Shona Lucio Primary Care Physician Yeison Holley AIR TRAFFIC CONTROL MANAGER - MAGNETIC TESTING TECHNICIAN, Miguel M Primary Care Provider Leydi AIR TRAFFIC CONTROL MANAGER - MAGNETIC TESTING TECHNICIAN, Miguel M Primary Care Provider LEYDI MIGUEL M Primary Care Unavailable VICKIE NICHOLS Admitting Unavailable VICKIE NICHOLS Attending Unavailable LEYDI, MIGUEL M Primary Care Unavailable ADITYA CERVANTES Referring Unavailable LEYDI, MIGUEL M Primary Care Unavailable ADITYA CERVANTES Referring Unavailable LEYDI, MIGUEL M Primary Care Unavailable ADITYA CERVANTES Referring Unavailable LEYDI, MIGUEL M Primary Care Unavailable ADITYA CERVANTES Referring Unavailable LEYDI, MIGUEL M Primary Care Unavailable VICKIE NICHOLS Referring Unavailable ADITYA CERVANTES Referring Unavailable LEYDI, MIGUEL M Primary Care Unavailable Unavailable Primary Care Provider UnavailADITYA Hernandez Attending Unavailable ADITYA CERVANTES Attending Unavailable LATASHA CARLTON Attending Unavailable ADITYA CERVANTES Attending Unavailable Allergies Allergy Classification Reported Allergen(s) Allergy Type Date of Onset Reaction(s) Facility Aminoketones (4 sources) buPROPion; Translations: [Wellbutrin SR 100 MG Oral Tablet Extended Release 12 Hour] Drug Allergy 03-05-20 20 Wellbutrin SR [facility] Work Phone: Corticosteroids (6 sources) Triamcinolone Drug Allergy 10-14-19 14 Other (See Comments) [facility] Lisdexamfetamine (1 source) Lisdexamfetamine Drug Allergy 10-04-19 21 Vyvanse [facility] Work Phone: Naltrexone (4 sources) Naltrexone; Translations: [Naltrexone HCl 50 MG Oral Tablet] Drug Allergy 03-05-20 20 Naltrexone HCl [facility] Work Phone: (1 source) Triamcinolone; Translations: [TRIAMCINOLONE ACETONIDE] Drug Allergy 10-12-19 15 [facility] (16 sources) Triamcinolone; Translations: [Kenalog] Drug Allergy 07-06-19 20 [facility] Work Phone: (8 sources) Triamcinolone Drug Allergy 10-14-19 14 Other (See Comments), Other, Hives [facility] [place] (17 sources) Poison spencer Allergy to substance 07-20-19 [facility] Work Phone: (3 sources) buPROPion; Translations: [Wellbutrin SR 100 MG Oral Tablet Extended Release 12 Hour] Drug Allergy 03-05-20 20 Wellbutrin SR [facility] Work Phone: (3 sources) Naltrexone; Translations: [Naltrexone HCl 50 MG Oral Tablet] Drug Allergy 03-05-20 20 Naltrexone HCl [facility] Work Phone: Medications Current Medications Medication [...] daily. 118 mL 1 12/17/2016 Active levonorgestrel 0.747832 mg/hr intrauterine system (17 sources) Progestin, Progestin-contai janessa Intrauterine Device Start: 07-20-2019 Mirena (52 MG) 20 MCG/24HR Intrauterine Intrauterine device 07/20/2019 Provider: Vit-Fe Fumarate-FA ( Plus/Iron) 27-1 MG tablet (2 sources) Start: 06-11-2023 End: 06-10-2024 take 1 tablet by mouth in the morning Vit-Fe Fumarate-FA ( Plus/Iron) 27-1 MG tablet Indications: Missed menses Take 1 tablet by mouth in the morning. 90 tablet 3 06/11/2023 06/10/2024 Active promethazine hydrochloride 25 mg oral tablet [...] iopamidol (ISOVUE-370) 76 % injection 75 mL lisdexamfetamine dimesylate 50 mg oral capsule (6 sources) Central Nervous System Stimulant Start: 03-06-2023 End: 07-15-2023 take 1 capsule by mouth in the morning Vyvanse 50 MG capsule Take 50 mg by mouth in the morning. 0 03/06/2023 07/15/2023 Discontinued (Therapy completed) Start: 09-10-2021 take 1 capsule by mo ut once daily in the morning VYVANSE 50 MG capsule TAKE ONE CAPSULE BY MOUTH EVERY MORNING 0 09/10/2021 Active methylPREDNISolone 4 mg oral tablet (9 sources) [...] Translations: [Morbid obesity] Onset: 09-23-2020 Chronic Other and delivery including normal (2 sources) Second trimester ; Translations: [Encounter for supervision of normal , unspecified, second trimester] 07-13-2023 Episodic Other screening for suspected conditions (not mental [...] Test Name Value Interpretation Reference Range Facility Urinalysis macro (dipstick) panel (U)on 07-15-2023 Bilirubin, UA Negative Negative - 4(70) +++ mg/dL [facility] Blood, UA Negative Negative - 50 Chuy/mcL [facility] Clarity, UA Clear [facility] Color, UA Yellow [facility] Glucose, UA Negative Negative - 2000(110) ++++ mg/dL [facility] Interpretation and review of laboratory results Normal [facility] Ketones, UA Positive Negative - 160(16) ++++ mg/dL [facility] Leukocytes, UA Negative Negative - 500+++ Sadi/mcL [facility] Nitrite, UA Negative Negative - Positive [facility] pH, UA 6.5 5 - 9 [facility] Protein, UA Negative Negative - 2000(20) ++++ mg/dL [facility] Spec Grav, UA 1.025 1 - 1.03 [facility] Urobilinogen, UA 0.2 0.2 - 12 mg/dL [facility] HCG, Quanton 05-12-2023 HCG, Quant 9701.0 mIU/mL High <5 [facility] Comment on above: Result Comment: Non-preg premeno <=5 Postmeno <=8 Male <=3 If HCG results do not concur with clinical observations, additional testing to confirm results is recommended. Performed By: #### B HCG #### [facility] [address] [place] [address] [place] [address] Slope Tender: Mateusz Brand MD HCG, Quanton 05-07-2023 HCG, Quant 3514.0 mIU/mL High <5 [facility] Comment on above: Result Comment: Non-preg premeno <=5 Postmeno <=8 Male <=3 If HCG results do not concur with clinical observations, additional testing to confirm results is recommended. Performed By: #### B HCG #### [facility] [address] [place] [address] Slope Tender: Mateusz Brand MD HCG, Quanton 05-05-2023 HCG, Quant 2224.0 mIU/mL High <5 [facility] Comment on above: Result Comment: Non-preg premeno <=5 Postmeno <=8 Male <=3 If HCG results do not concur with clinical observations, additional testing to confirm results is recommended. Performed By: #### B HCG #### [facility] [address] [place] [address] Slope Tender: Mateusz Brand MD US PELVIS COMPLETE [...] Yousif Lamb MD 03/25/23 Final result Normal [facility] CBC with Diffon 03-24-2023 Abs. Basophil 0.06 k/uL Normal 0.00-0.20 [facility] Comment on above: Performed By: #### C DP, BHCG #### [facility] [address] [place], [facility]83 Slope Tender: Mateusz Brand MD Abs.Imm.Granulocyte 0.03 k/uL Normal 0.00-0.30 [facility] Comment on above: Performed By: #### C TJ [facility] #### [address] Hernandez, [place] [address] Slope Tender: Mateusz Brand MD Abs.Neutrophil (Seg) 7.07 k/uL Normal 1.50-8.10 [facility] Comment on above: Performed By: #### C [facility]J [facility] #### [address] Hernandez, [place] [address] Slope Tender: Mateusz Brand MD Basophils/100 WBC (Bld) 1 % Normal 0-2 [facility] Comment on above: Performed By: #### C [facility]J [facility] #### [address] Hernandez, [place] [address] Slope Tender: Mateusz Brand MD Eosinophils (Bld) [#/Vol] 0.13 10*3/uL Normal 0.00-0.44 [facility] Comment on above: Performed By: #### C TJ [facility] #### [address] Hernandez, [facility]21 ( Slope Tender: Mateusz Brand MD Eosinophils/100 WBC (Bld) 1 % Normal 1-4 [facility] Comment on above: Performed By: #### C [facility] #### [address] Hernandez, [facility]83 Slope Tender: Mateusz Brand MD Erythrocyte distribution width (RBC) [Ratio] 11.9 % Normal 11.8-14.4 [facility] Comment on above: Performed By: #### C [facility] #### [address] Hernandez, [facility]83 Slope Tender: Mateusz Brand MD Hematocrit (Bld) [Volume fraction] 37.8 % Normal 36.3-47.1 [facility] Comment on above: Performed By: #### C [facility] #### [facility] [address] [place] [address] Slope Tender: Mateusz Brand MD Hemoglobin (Bld) [Mass/Vol] 13.3 g/dL Normal 11.9-15.1 [facility] Comment on above: Performed By: #### C TJ CG #### [facility] [address] [place] [address] Slope Tender: Mateusz Brand MD Immature granulocytes/100 WBC (Bld) 0 % Normal 0 [facility] Comment on above: Performed By: #### C TJ CG #### [address] [place], [place] [id number] Slope Tender: Mateusz Brand MD Lymphocytes (Bld) [#/Vol] 3.03 10*3/uL Normal 1.10-3.70 [facility] Comment on above: Performed By: #### C [facility]J [facility] #### [address] [place] [address] Slope Tender: Mateusz Brand MD Lymphocytes/100 WBC (Bld) 28 % Normal 24-43 [facility] Comment on above: Performed By: #### C TJ MarisaG #### [facility] [address] [place] [address] Slope Tender: Mateusz Brand MD MCH (RBC) [Entitic mass] 28.6 pg Normal 25.2-33.5 [facility] Comment on above: Performed By: #### C TJ BHCG #### [facility] [address] [place], [place] [id number] Slope Tender: Mateusz Brand MD MCHC (RBC) [Mass/Vol] 35.2 g/dL High 28.4-34.8 [facility] Comment on above: Performed By: #### C TJ CG #### [address] Hernandez, [place] [address] Slope Tender: Mateusz Brand MD MCV (RBC) [Entitic vol] 81.3 fL Low 82.6-102.9 [facility] Comment on above: Performed By: #### C TJ CG #### [address] Hernandez, [place] [address] Slope Tender: Mateusz Brand MD Monocytes (Bld) [#/Vol] 0.60 10*3/uL Normal 0.10-1.20 [facility] Comment on above: Performed By: #### C TJ CG #### [address] [place], [place] [address] Slope Tender: Mateusz Brand MD Monocytes/100 WBC (Bld) 6 % Normal 3-12 [facility] Comment on above: Performed By: #### C [facility]J [facility] #### [address] [place], [place] [address] Slope Tender: Mateusz Brand MD Neutrophil (Seg) 64 % Normal 36-65 [facility] Comment on above: Performed By: #### C TJ MarisaG #### [address] Hernandez, [place] [address] Slope Tender: Mateusz Brand MD NRBC Automated 0.0 per 100 WBC Normal 0.0 [facility] Comment on above: Performed By: #### C TJ CG #### [address] [place], [facility]83 Slope Tender: Mateusz Brand MD Platelet mean volume (Bld) [Entitic vol] 10.6 fL Normal 8.1-13.5 [facility] Comment on above: Performed By: #### C TJ [facility] #### [facility] [address] [place], [place] [id number] Slope Tender: Mateusz Brand MD Platelets (Bld) [#/Vol] 231 10*3/uL Normal 138-453 [facility] Comment on above: Performed By: #### C DP, BHCG #### [facility] [address] [place] [address] Slope Tender: Mateusz Brand MD RBC (Bld) [#/Vol] 4.65 10*6/uL Normal 3.95-5.11 [facility] Comment on above: Performed By: #### C DP, BHCG #### [facility] [address] [place], [place] [id number] Slope Tender: Mateusz Brand MD WBC (Bld) [#/Vol] 10.9 10*3/uL Normal 3.5-11.3 [facility] Comment on above: Performed By: #### C DP, BHCG #### [facility] [address] [place], [place] [address] Slope Tender: Mateusz Brand MD HCG, Quanton 03-24-2023 HCG, Quant <1.0 Normal <5 [facility] Comment on above: Result Comment: Non-preg premeno <=5 Postmeno <=8 Male <=3 If HCG results do not concur with clinical observations, additional testing to confirm results is recommended. Performed By: #### C DP, BHCG #### [facility] [address] [place], [place] [address] Slope Tender: Mateusz Brand MD HCG, ,Urineon 01-20 Beta HCG ( test) Ql (U) Negative Normal NEG [facility] Comment on above: Result Comment: Spec imens with hCG levels near the threshold of the test (25 mIU/mL) may give a negative or indeterminate result. In such cases, another test should be performed with a new specimen in 48-72 hours. If early is suspected clinically in this setting, correlation with quantitative serum b-hCG level is suggested. [facility] has confirmed the use of plasma for this test. This has not been cleared or approved by the U.S. Food and Drug Administration. The FDA has determined that such clearance is not necessary. Performed By: #### U HCG #### [facility] [address] [place] [address] [address] [place], [place] [id number] Slope Tender: Mateusz Brand MD OPERATIVE REPORTon 3 OPERATIVE REPORT [address] [address] OPERATIVE REPORT PATIENT NAME: ESTEFANIA FLOREZ : 1995 MED REC NO: [id number] ROOM: ACCOUNT NO: [id number] ADMIT DATE: 01/20/2023 PROVIDER: Vickie Nichols MD [...] cervix in a graduated fashion to #14 Azerbaijani with Adeel dilators. Then, the hysteroscope was [...] taken in good condition. VICKIE NICHOLS MD [id number] Doc#: [id number] CC: Normal [facility] Cytologyon 01-01-2023 Cytology (NOTE) Path Number: [id number] DIAGNOSIS Imaged ThinPrep Pap - Cervical (1 monolayer slide): Specimen Adequacy: Satisfactory for evaluation. -Endocervical/transformat ion zone component is absent. Descriptive Diagnosis: Negative for intraepithelial lesion or malignancy. Fungal organisms morphologically consistent with Sheree species. Cytotech Screener: EY Electronically Signed Out Arsh Webb CT(ASCP) ey/01/07/2023 Source of Specimen: A: Imaged ThinPrep Pap - Cervical (1 monolayer slide) HPV Reflex?.................. ....HPV if Abnormal Clinical History Intrauterine device Z01.419 Routine food manager exam without abnormal findings High risk HPV DNA testing is requested if the diagnosis is abnormal Processing Lab: [place] [id number] Interpretation performed at [place] [id number] This Pap Test has been evaluated with [...] result. GYNECOLOGIC CYTOLOGY REPORT [facility]: [facility] [id number] [facility] [employer] [facility] ANATOMIC PATHOLOGY [address] [place] [address]. [place] [address] Normal [facility] C-Reactive Proteinon 022 CRP [Mass/Vol] mg/L 0 - 5 mg/L [facility] CBC with Auto Differentialon 12-16-2021 Absolute Eos # 0.09 [facility] Absolute Immature Granulocyte 0.04 [facility] Absolute Lymph # 2.98 [facility] Absolute [place] # 0.51 [facility] Basophils (Bld) [#/Vol] 0.04 10*3/uL [facility] Basophils/100 WBC (Bld) 0 % 0 - 2 % [facility] Eosinophils/100 WBC (Bld) 1 % 1 - 4 % [facility] Hematocrit (Bld) [Volume fraction] 39.6 % 36.3 - 47.1 % [facility] Hemoglobin (Bld) [Mass/Vol] 13.1 g/dL 11.9 - 15.1 g/dL [facility] Immature granulocytes/100 WBC (Bld) 0 % 0 [facility] Lymphocytes/100 WBC (Bld) 33 % 24 - 43 % [facility] MCH (RBC) [Entitic mass] 28.2 pg 25.2 - 33.5 pg [facility] MCHC (RBC) [Mass/Vol] 33.1 g/dL 28.4 - 34.8 g/dL [facility] MCV (RBC) [Entitic vol] 85.3 fL 82.6 - 102.9 fL [facility] Monocytes/100 WBC (Bld) 6 % 3 - 12 % [facility] NRBC Automated 0.0 0.0 per 100 WBC [facility] Platelet distribution width (Bld) [Ratio] 12.0 % 11.8 - 14.4 % [facility] Platelet mean volume (Bld) [Entitic vol] 11.1 fL 8.1 - 13.5 fL [facility] Platelets (Bld) [#/Vol] 214 10*3/uL [facility] RBC (Bld) [#/Vol] 4.64 10*6/uL 3.95 - 5.1 1 m/uL [facility] Segmented neutrophils/100 WBC (Bld) 60 % 36 - 65 % [facility] Segs Absolute 5.49 [facility] WBC (Bld) [#/Vol] 9.2 10*3/uL [facility] Rheumatoid Factoron 12-17-19 22 Rheumatoid Factor <10 [facility] Sedimentation Rateon 022 Sed Rate 5 [facility] Uric Acidon 12-16-2021 Urate [Mass/Vol] 4.2 mg/dL 2.4 - 5.7 mg/dL [facility] Basic Metabolic Panel w/ Ref yossi to MGOrdered By: Donny Hatfield on 10-15-2020 Anion gap [Moles/Vol] 13 mmol/L 9 - 17 mmol/L [employer] Phone: Calcium [Mass/Vol] 9.6 mg/dL 8.6 - 10. 4 mg/dL [employer] Phone: Chloride [Moles/Vol] 105 mmol/L 98 - 10 7 mmol/L [employer] Phone: CO2 [Moles/Vol] 22 mmol/L 20 - 31 mmol/L [employer] Phone: Creatinine [Mass/Vol] 0.62 mg/dL 0.50 - 0.90 mg/dL [employer] Phone: GFR >60 >60 mL/min [employer] Phone: GFR Non- >60 >60 mL/min [facility] Phone: Glucose [Mass/Vol] 110 mg/dL High 70 - 99 mg/dL [employer] Phone: Interpretation and review of laboratory results Abnormal [employer] Phone: Potassium [Moles/Vol] 3.5 mmol/L Low 3.7 - 5.3 mmol/L [employer] Phone: Sodium [Moles/Vol] 140 mmol/L 135 - 144 mmol/L [employer] Phone: Urea nitrogen (BldV) [Mass/Vol] 12 mg/dL 6 - 20 mg/dL [employer] Phone: Urea nitrogen/Creatinine (Bld) [Mass ratio] 19 [employer] Phone: [employer] Phone: CBC Auto DifferentialOrdered By: Donny Hatfield on 10-15-2020 Absolute Eos # 0.19 [employer] [facility] Work Phone: Absolute Immature Granulocyte 0.06 [employer] Work Phone: Absolute Lymph # 2.50 [employer] [facility] Work Phone: Absolute [place] # 0.75 [employer] [facility] Work Phone: Basophils (Bld) [#/Vol] 0.04 10*3/uL [employer] Work Phone: Basophils/100 WBC (Bld) 0 % 0 - 2 % [employer] Phone: Differential Type NOT REPORTED [employer] Phone: Eosinophils/100 WBC (Bld) 1 % 1 - 4 % [employer] Phone: Hematocrit (Bld) [Volume fraction] 42.1 % 36.3 - 47.1 % [employer] Phone: Hemoglobin.gastrointes tinal spec 1 Ql (Stl) 14.0 g/dL 11.9 - 15.1 g/dL [employer] Phone: Immature granulocytes/100 WBC (Bld) 0 % 0 [employer] Phone: Interpretation and review of laboratory results Abnormal [employer] Phone: Lymphocytes/100 WBC (Bld) 14 % Low 24 - 43 % [employer] Phone: MCH (RBC) [Entitic mass] 28.1 pg 25.2 - 33.5 pg [employer] Phone: MCHC (RBC) [Mass/Vol] 33.3 g/dL 28.4 - 34.8 g/dL [employer] Phone: MCV (RBC) [Entitic vol] 84.4 fL 82.6 - 102.9 fL [employer] Phone: Monocytes/100 WBC (Bld) 4 % 3 - 12 % [employer] Phone: NRBC Automated 0.0 0.0 per 100 WBC [employer] Phone: Platelet distribution width (Bld) [Ratio] 11.9 % 11.8 - 14.4 % [employer] Phone: Platelet Estimate NOT REPORTED [employer] Phone: Platelet mean volume (Bld) [Entitic vol] 10.7 fL 8.1 - 13.5 fL [employer] Phone: Platelets (Bld) [#/Vol] 220 10*3/uL [employer] Phone: RBC (Bld) [#/Vol] 4.99 10*6/uL 3.95 - 5.1 1 m/uL [employer] Phone: RBC (Bld) [#/Vol] NOT REPORTED [employer] Phone: Segmented neutrophils/100 WBC (Bld) 81 % High 36 - 65 % [employer] Phone: Segs Absolute 14.20 [employer] Work Phone: WBC (Bld) [#/Vol] 17.7 10*3/uL High [employer] Phone: WBC (Bld) [#/Vol] NOT REPORTED [employer] Phone: [employer] Phone: CT ABDOMEN PELVIS W IV CONTR AST Additional Contrast? NoneOrdered By: Donny Hatfield on 10-15-2020 1. Marked hepatic steatosis. 2. Hepatomegaly. 3. Mild colonic diverticulosis without evidence of diverticulitis. [employer] Phone: EXAMINATION: CT OF T HE ABDOMEN [...] subcutaneous soft tissues are unremarkable in appearance. [employer] Work Phone: Jean Marie, pn Incoming Radiant Results From [employer] - 10/15/2020 1:48 AM EDT EXAMINATION: CT [...] COMPARISON: None. HISTORY: ORDERING SYSTEM PROVIDED HISTORY: [facility] pain TECHNOLOGIST PROVIDED HISTORY: abd pain Decision [...] Mild colonic diverticulosis without evidence of diverticulitis. [employer] Phone: [employer] Phone: HCG Qualitative, SerumOrdere d By: Donny Hatfield on 10-15-2020 hCG Qual Negative NEGATIVE [employer] Phone: Comment on above: Specimens with hCG l evels near the threshold of the test (25 mIU/mL) may give a negative or indeterminate result. In such cases, another test should be performed with a new specimen in 48-72 hours. If early is suspected clinically in this setting, correlation with quantitative serum b-hCG level is suggested. [facility] has confirmed the use of plasma for this test. This has not been cleared or approved by the U.S. Food and Drug Administration. The FDA has determined that such clearance is not necessary. [employer] Phone: Hepatic Function PanelOrdere d By: Donny Hatfield on 10-15-2020 Albumin [Mass/Vol] 4.6 g/dL 3.5 - 5.2 g/dL [employer] Phone: Albumin/Globulin [Mass ratio] 1.6 {ratio} [employer] Phone: ALP (Bld) [Catalytic activity/Vol] 59 U/L 35 - 104 U/L [employer] Phone: ALT [Catalytic activity/Vol] 38 U/L High 5 - 33 U/L [employer] Phone: AST [Catalytic activity/Vol] 24 U/L <32 [employer] Phone: Bilirubin [Mass/Vol] 0.48 mg/dL 0.3 - 1 .2 mg/dL [employer] Phone: Bilirubin, Indirect CANNOT BE CALCULATED 0.00 - 1.00 mg/dL [employer] Phone: Bilirubin.indirect [Mass/Vol] mg/dL <0.31 mg/dL [employer] Phone: Free PSA/Total PSA [Mass fraction] 7.4 g/dL 6.4 - 8.3 g/dL [employer] Phone: Globulin NOT REPORTED 1.5 - 3.8 g/dL [employer] Phone: Interpretation and review of laboratory results Abnormal [employer] Phone: Laboratory - Chemistry and C hemistry - challengeOrdered By: Donny Hatfield on 10-15-2020 GFR/1.73 sq M.predicted MDRD (S/P/Bld) [Vol rate/Area] [employer] Phone: Comment on above: Average GFR for 20-2 9 years old: 116 mL/min/1.73sq m Chronic Kidney Disease: <60 mL/min/1.73sq m Kidney failure: <15 mL/min/1.73sq m eGFR calculated using average adult body mass. Additional eGFR calculator available at: http://www.[employer]/multiple_crcl_2012.htm Stage 1: Some kidney damage normal GFR Stage 2: Mild kidney damage GFR 60-89 Stage 3: Moderate kidney damage GFR 30-59 Stage 4: Severe kidney damage GFR 15-29 Stage 5: Severe kidney damage GFR <15 ESRD - chronic treatment by dialysis or transplant Lactic Acid, PlasmaOrdered B y: Donny Hatfield on 10-15-2020 Lactate [Moles/Vol] 1.1 mmol/L 0.5 - 2. 2 mmol/L [employer] Phone: Lactic Acid, Whole Blood NOT REPORTED 0.7 - 2.1 mmol/L [employer] Phone: [employer] Phone: LipaseOrdered By: Cuco on 10-15-2020 Lipase [Catalytic activity/Vol] 27 U/L 13 - 60 U/L [facility] Phone: MagnesiumOrdered By: Donny Hatfield on 10-15-2020 Magnesium [Mass/Vol] 1.8 mg/dL 1.6 - 2 .6 mg/dL [employer] Phone: [facility] Phone: Microscopic UrinalysisOrdere d By: Donny Hatfield on 10-15-2020 - [employer] Phone: Amorphous, UA NOT REPORTED None [employer] [facility] Work Phone: Bacteria, UA 1+ Abnormal None [employer] Work Phone: Casts UA NOT REPORTED /LPF [facility] Work Phone: Crystals, UA NOT REPORTED None /HPF [employer] [facility] Work Phone: Epithelial Cells UA 2 TO 5 [facility] Work Phone: Interpretation and review of laboratory results Abnormal [facility] [facility] Mucus, UA 1+ Abnormal None [facility] Other Observations UA NOT REPORTED NOT REQ. [facility] Work Phone: RBC, UA 2 TO 5 [facility] Work Phone: Renal Epithelial, UA NOT REPORTED 0 /HPF [facility] Work Phone: Trichomonas, UA NOT REPORTED None [facility] Work Phone: WBC, UA 0 TO 2 [facility] Work Phone: Yeast, UA NOT REPORTED None [facility] Work Phone: [facility] Work Phone: No Panel InformationOrdered By: Donny Hatfield on 10-15-2020 [facility] Work Phone: Urinalysis Reflex to Culture Ordered By: Donny Hatfield on 10-15-2020 Bilirubin Urine Negative NEGATIVE [facility] Work Phone: Color, UA YELLOW YELLOW [facility] Work Phone: Glucose, Ur Negative NEGATIVE [facility] Work Phone: Interpretation and review of laboratory results Abnormal [facility] Work Phone: Ketones Ql (U) Negative NEGATIVE [facility] Work Phone: Leukocyte esterase Test strip Ql (U) Negative NEGATIVE [facility] Work Phone: Nitrite, Urine Negative NEGATIVE [facility] Work Phone: pH, UA 5.0 [facility] Work Phone: Protein, UA Negative NEGATIVE [facility] Work Phone: Specific Schlater, UA 1.010 [facility] [employer] Work Phone: Turbidity UA CLEAR CLEAR [facility] Work Phone: Urinalysis Comments NOT REPORTED [facility] [employer] Work Phone: Urine Hgb 2+ Abnormal NEGATIVE [facility] Work Phone: Urobilinogen, Urine Normal Normal [facility] [employer] Work Phone: [facility]: Comp Metabolic Profon 2020 (cont.) Normal [facility] Comment on above: Result Comment: Aver age GFR for 20-29 years old: 116 mL/min/1.73sq m Chronic Kidney Disease: <60 mL/min/1.73sq m Kidney failure: <15 mL/min/1.73sq m eGFR calculated using average adult body mass. Additional eGFR calculator available at: http://www.marshallindex/multiple_crcl_2011.htm Performed By: #### L IPRF, CDP, CP, TSHX #### [facility] [address] [place] [phone] Slope Tender: Chato Aguirre MD Albumin [Mass/Vol] 4.3 g/dL Normal 3.5-5.2 [facility] Comment on above: Performed By: #### L IPRF, CDP, CP, TSHX #### [facility] [address] [place] [phone] Slope Tender: Chato Aguirre MD Albumin/Glob Ratio 1.3 Normal 1.0-2.5 [facility] Comment on above: Performed By: #### L IPRF, CDP, CP, TSHX #### [facility] [address] [place] [phone] Slope Tender: Chato Aguirre MD Alkaline Phos 49 U/L Normal 35-104 [facility] Comment on above: Performed By: #### L IPRF, CDP, CP, TSHX #### [facility] [address] [place] [phone] Slope Tender: Chato Aguirre MD ALT [Catalytic activity/Vol] 36 U/L High 5-33 [facility] Comment on above: Performed By: #### L IPRF, CDP, CP, TSHX #### [address] [address] Slope Tender: Chato Aguirre MD Anion gap [Moles/Vol] 11 mmol/L Normal 9-17 [facility] Comment on above: Performed By: #### L IPRF, CDP, CP, TSHX #### [address] [address] Slope Tender: Chato Aguirre MD AST [Catalytic activity/Vol] 27 U/L Normal <32 [facility] Comment on above: Performed By: #### L IPRF, CDP, CP, TSHX #### [address] [address] Slope Tender: Chato Aguirre MD Bilirubin [Mass/Vol] 0.34 mg/dL Normal 0.3-1.2 [facility] Comment on above: Performed By: #### L IPRF, CDP, CP, TSHX #### [address] [address] Slope Tender: Chato Aguirre MD Calcium [Mass/Vol] 9.5 mg/dL Normal 8.6-10.4 [facility] Comment on above: Performed By: #### L IPRF, CDP, CP, TSHX #### [address] [address] Slope Tender: Chato Aguirre MD Chloride [Moles/Vol] 102 mmol/L Normal 98-107 [facility] Comment on above: Performed By: #### L IPRF, CDP, CP, TSHX #### [address] [address] Slope Tender: Chato Aguirre MD CO2 [Moles/Vol] 22 mmol/L Normal 20-31 [facility] Comment on above: Performed By: #### L IPRF, CDP, CP, TSHX #### [address] [address] Slope Tender: Chato Aguirre MD Creatinine [Mass/Vol] 0.46 mg/dL Low 0.50-0.90 [facility] Comment on above: Performed By: #### L IPRF, CDP, CP, TSHX #### [facility] [address] [place] [phone] Slope Tender: Chato Aguirre MD GFR, Amer >60 Normal >60 [facility] Comment on above: Performed By: #### L IPRF, CDP, CP, TSHX #### [facility] [address] [place] [phone] Slope Tender: Chato Aguirre MD GFR,non Amer >60 Normal >60 [facility] Comment on above: Performed By: #### L IPRF, CDP, CP, TSHX #### [facility] [address] [place] [address] Slope Tender: Chato Aguirre MD Glucose [Mass/Vol] 92 mg/dL Normal 70-99 [facility] Comment on above: Performed By: #### L IPRF, CDP, CP, TSHX #### [facility] [address] [place] [phone] Slope Tender: Chato Aguirre MD Potassium [Moles/Vol] 4.2 mmol/L Normal 3.7-5.3 [facility] Comment on above: Performed By: #### L IPRF, CDP, CP, TSHX #### [facility] [address] [place] [phone] Slope Tender: Chato Aguirre MD Protein [Mass/Vol] 7.5 g/dL Normal 6.4-8.3 [facility] Comment on above: Performed By: #### L IPRF, CDP, CP, TSHX #### [facility] [address] [place] [phone] Slope Tender: Chato Aguirre MD Sodium [Moles/Vol] 135 mmol/L Normal 135-144 [facility] Comment on above: Performed By: #### L IPRF, CDP, CP, TSHX #### [facility] [address] [place] [address] Slope Tender: Chato Aguirre MD Urea nitrogen [Mass/Vol] 11 mg/dL Normal 6-20 [facility] Comment on above: Performed By: #### L IPRF, CDP, CP, TSHX #### [facility] [address] [place] [address] [phone] Slope Tender: Chato Aguirre MD Lipid Prof, Fastingon 2020 Cholesterol [Mass/Vol] 186 mg/dL Normal <200 [facility] Comment on above: Result Comment: Cholesterol Guidelines: <200 Desirable 200-240 Borderline >240 Undesirable Performed By: #### L IPRF, CDP, CP, TSHX #### [facility] [address] [place] [address] [phone] Slope Tender: Chato Aguirre MD Cholesterol in HDL [Mass/Vol] 49 mg/dL Normal >40 [facility] Comment on above: Result Comment: HDL Guidelines: <40 Undesirable 40-59 Borderline >59 Desirable Performed By: #### L IPRF, CDP, CP, TSHX #### [facility] [address] [place] [address] [phone] Slope Tender: Chato Aguirre MD Cholesterol in LDL [Mass/Vol] 102 mg/dL Normal 0-130 [facility] Comment on above: Result Comment: LDL Guidelines: <100 Desirable 100-129 Near to/above Desirable 130-159 Borderline >159 Undesirable Direct (measured) LDL and calculated LDL are not interchangeable tests. Performed By: #### L IPRF, CDP, CP, TSHX #### [facility] [address] [place] [address] [phone] Slope Tender: Chato Aguirre MD Cholesterol.total/Chol esterol in HDL [Mass ratio] 3.8 {ratio} Normal <5 [facility] Comment on above: Performed By: #### L IPRF, CDP, CP, TSHX #### [facility] [place], [place] [phone] Slope Tender: Chato Aguirre MD Triglyceride,Fasting 173 mg/dL High <150 [facility] Comment on above: Result Comment: Triglyceride Guidelines: <150 Desirable 150-199 Borderline 200-499 High >499 Very high Based on AHA Guidelines for fasting triglyceride, February 2012. Performed By: #### L IPRF, CDP, CP, TSHX #### [facility] [place], [place] [phone] Slope Tender: Chato Aguirre MD TSH w/reflex to FT4on 2020 TSH Qn 3.38 m[IU]/L Normal 0.30-5.00 [facility] Comment on above: Performed By: #### L IPRF, CDP, CP, TSHX #### [facility] [address] [place] [address] [phone] Slope Tender: Chato Aguirre MD CBC Auto DifferentialOrdered By: Miguel Holley on 09-23-2020 [employer] # 0.14 [employer] [facility] Work Phone: Absolute Immature Granulocyte <0.03 [employer] Work Phone: Absolute Lymph # 2.71 [employer] [facility] Work Phone: Absolute [place] # 0.48 [employer] [facility] Work Phone: Basophils (Bld) [#/Vol] 0.05 10*3/uL [employer] Work Phone: Basophils/100 WBC (Bld) 1 % 0 - 2 % [employer] Work Phone: Differential Type NOT REPORTED [employer] Work Phone: Eosinophils/100 WBC (Bld) 2 % 1 - 4 % [employer] Work Phone: Hematocrit (Bld) [Volume fraction] 42.9 % 36.3 - 47.1 % [employer] Phone: Hemoglobin.gastrointes tinal spec 1 Ql (Stl) 13.5 g/dL 11.9 - 15.1 g/dL [employer] Phone: Immature granulocytes/100 WBC (Bld) 0 % 0 [employer] Phone: Lymphocytes/100 WBC (Bld) 30 % 24 - 43 % [employer] Phone: MCH (RBC) [Entitic mass] 27.6 pg 25.2 - 33.5 pg [employer] Phone: MCHC (RBC) [Mass/Vol] 31.5 g/dL 28.4 - 34.8 g/dL [employer] Phone: MCV (RBC) [Entitic vol] 87.6 fL 82.6 - 102.9 fL [employer] Phone: Monocytes/100 WBC (Bld) 5 % 3 - 12 % [employer] Phone: NRBC Automated 0.0 0.0 per 100 WBC [employer] Phone: Platelet distribution width (Bld) [Ratio] 12.4 % 11.8 - 14.4 % [employer] Phone: Platelet Estimate NOT REPORTED [employer] Phone: Platelet mean volume (Bld) [Entitic vol] 11.6 fL 8.1 - 13.5 fL [employer] Phone: Platelets (Bld) [#/Vol] 246 10*3/uL [employer] Phone: RBC (Bld) [#/Vol] 4.90 10*6/uL 3.95 - 5.1 1 m/uL [employer] Phone: RBC (Bld) [#/Vol] NOT REPORTED [employer] Phone: Segmented neutrophils/100 WBC (Bld) 62 % 36 - 65 % [employer] Work Phone: Segs Absolute 5.79 [employer] Work Phone: WBC (Bld) [#/Vol] 9.2 10*3/uL [employer] Work Phone: WBC (Bld) [#/Vol] NOT REPORTED [employer] Phone: CBC with Diffon 09-23-2020 Abs. Basophil 0.05 k/uL Normal 0.00-0.20 [facility] Comment on above: Performed By: #### L IPRF, CDP, CP, TSHX #### [facility] [address] [place] [address] Slope Tender: Chato Aguirre MD Abs.Imm.Granulocyte <0.03 Normal 0.00-0.30 [facility] Comment on above: Performed By: #### L IPRF, CDP, CP, TSHX #### [facility] [address] [place] [address] Slope Tender: Chato Aguirre MD Abs.Neutrophil (Seg) 5.79 k/uL Normal 1.50-8.10 [facility] Comment on above: Performed By: #### L IPRF, CDP, CP, TSHX #### [facility] [address] [place] [address] Slope Tender: Chato Aguirre MD Basophils/100 WBC (Bld) 1 % Normal 0-2 [facility] Comment on above: Performed By: #### L IPRF, CDP, CP, TSHX #### [facility] [address] [place] [address] Slope Tender: Chato Aguirre MD Eosinophils (Bld) [#/Vol] 0.14 10*3/uL Normal 0.00-0.44 [facility] Comment on above: Performed By: #### L IPRF, CDP, CP, TSHX #### [facility] [address] [place] [phone] Slope Tender: Chato Aguirre MD Eosinophils/100 WBC (Bld) 2 % Normal 1-4 [facility] Comment on above: Performed By: #### L IPRF, CDP, CP, TSHX #### [place] [address] Slope Tender: Chato Aguirre MD Erythrocyte distribution width (RBC) [Ratio] 12.4 % Normal 11.8-14.4 [facility] Comment on above: Performed By: #### L IPRF, CDP, CP, TSHX #### [place] [address] Slope Tender: Chato Aguirre MD Hematocrit (Bld) [Volume fraction] 42.9 % Normal 36.3-47.1 [facility] Comment on above: Performed By: #### L IPRF, CDP, CP, TSHX #### [facility] [address] [place] [address] Slope Tender: Chato Aguirre MD Hemoglobin (Bld) [Mass/Vol] 13.5 g/dL Normal 11.9-15.1 [facility] Comment on above: Performed By: #### L IPRF, CDP, CP, TSHX #### [facility] [employer] [address] [place] [phone] Slope Tender: Chato Aguirre MD Immature granulocytes/100 WBC (Bld) 0 % Normal 0 [facility] Comment on above: Performed By: #### L IPRF, CDP, CP, TSHX #### [facility] [address] [place] [phone] Slope Tender: Chato Aguirre MD Lymphocytes (Bld) [#/Vol] 2.71 10*3/uL Normal 1.10-3.70 [facility] Comment on above: Performed By: #### L IPRF, CDP, CP, TSHX #### [address] [address] Slope Tender: Chato Aguirre MD Lymphocytes/100 WBC (Bld) 30 % Normal 24-43 [facility] Comment on above: Performed By: #### L IPRF, CDP, CP, TSHX #### [address] [address] Slope Tender: Chato Aguirre MD MCH (RBC) [Entitic mass] 27.6 pg Normal 25.2-33.5 [facility] Comment on above: Performed By: #### L IPRF, CDP, CP, TSHX #### [address] [address] Slope Tender: Chato Aguirre MD MCHC (RBC) [Mass/Vol] 31.5 g/dL Normal 28.4-34.8 [facility] Comment on above: Performed By: #### L IPRF, CDP, CP, TSHX #### [address] [address] Slope Tender: Chato Aguirre MD MCV (RBC) [Entitic vol] 87.6 fL Normal 82.6-102.9 [facility] Comment on above: Performed By: #### L IPRF, CDP, CP, TSHX #### [facility] [address] [place] [phone] Slope Tender: Chato Aguirre MD Monocytes (Bld) [#/Vol] 0.48 10*3/uL Normal 0.10-1.20 [facility] Comment on above: Performed By: #### L IPRF, CDP, CP, TSHX #### [address] [address] Slope Tender: Chato Aguirre MD Monocytes/100 WBC (Bld) 5 % Normal 3-12 [facility] Comment on above: Performed By: #### L IPRF, CDP, CP, TSHX #### [facility] [employer] [address] [place] [address] Slope Tender: Chato Aguirre MD Neutrophil (Seg) 62 % Normal 36-65 [facility] Comment on above: Performed By: #### L IPRF, CDP, CP, TSHX #### [facility] [address] [place] [phone] Slope Tender: Chato Aguirre MD NRBC Automated 0.0 per 100 WBC Normal 0.0 [facility] Comment on above: Performed By: #### L IPRF, CDP, CP, TSHX #### [address] [address] Slope Tender: Chato Aguirre MD Platelet mean volume (Bld) [Entitic vol] 11.6 fL Normal 8.1-13.5 [facility] Comment on above: Performed By: #### L IPRF, CDP, CP, TSHX #### [facility] [address] [place] [phone] Slope Tender: Chato Aguirre MD Platelets (Bld) [#/Vol] 246 10*3/uL Normal 138-453 [facility] Comment on above: Performed By: #### L IPRF, CDP, CP, TSHX #### [facility] [address] [place] [phone] Slope Tender: Chato Aguirre MD RBC (Bld) [#/Vol] 4.90 10*6/uL Normal 3.95-5.11 [facility] Comment on above: Performed By: #### L IPRF, CDP, CP, TSHX #### [facility] [address] [place] [phone] Slope Tender: Chato Aguirre MD WBC (Bld) [#/Vol] 9.2 10*3/uL Normal 3.5-11.3 [facility] Comment on above: Performed By: #### L IPRF, CDP, CP, TSHX #### [facility] [address] [place] [address] Slope Tender: Chato Aguirre MD Auto Diff Performed NOT REPORTED Normal [facility] Comment on above: Performed By: #### L IPRF, CDP, CP, TSHX #### [facility] [address] [place] [phone] Slope Tender: Chato Aguirre MD Platelet Estimate NOT REPORTED Normal [facility] Comment on above: Performed By: #### L IPRF, CDP, CP, TSHX #### [address] [address] Slope Tender: Chato Aguirre MD RBC morphology finding Nom (Bld) NOT REPORTED Normal [facility] Comment on above: Performed By: #### L IPRF, CDP, CP, TSHX #### [address] [address] Slope Tender: Chato Aguirre MD WBC Morphology NOT REPORTED Normal [facility] Comment on above: Performed By: #### L IPRF, CDP, CP, TSHX #### [address] [address] Slope Tender: Chato Aguirre MD Comp Metabolic Profon 2020 BUN/CRE Ratio NOT REPORTED Normal 02-17 [facility] Comment on above: Performed By: #### L IPRF, CDP, CP, TSHX #### [facility] [address] [place] [address] Slope Tender: Chato Aguirre MD Staging: NOT REPORTED Normal [facility] Comment on above: Performed By: #### L IPRF, CDP, CP, TSHX #### [facility] [address] [place] [address] Slope Tender: Chato Aguirre MD Comprehensive Metabolic Pane lOrdered By: Miguel Holley on 09-23-2020 Albumin [Mass/Vol] 4.3 g/dL 3.5 - 5.2 g/dL [employer] Phone: Albumin/Globulin [Mass ratio] 1.3 {ratio} [employer] Phone: ALP (Bld) [Catalytic activity/Vol] 49 U/L 35 - 104 U/L [employer] Phone: ALT [Catalytic activity/Vol] 36 U/L High 5 - 33 U/L [employer] Phone: Anion gap [Moles/Vol] 11 mmol/L 9 - 17 mmol/L [employer] Phone: AST [Catalytic activity/Vol] 27 U/L <32 [employer] Phone: Bilirubin [Mass/Vol] 0.34 mg/dL 0.3 - 1 .2 mg/dL [employer] Phone: Calcium [Mass/Vol] 9.5 mg/dL 8.6 - 10. 4 mg/dL [employer] Phone: Chloride [Moles/Vol] 102 mmol/L 98 - 10 7 mmol/L [employer] Phone: CO2 [Moles/Vol] 22 mmol/L 20 - 31 mmol/L [employer] Phone: Creatinine [Mass/Vol] 0.46 mg/dL Low 0.50 - 0.90 mg/dL [employer] Phone: Free PSA/Total PSA [Mass fraction] 7.5 g/dL 6.4 - 8.3 g/dL [employer] Phone: GFR >60 >60 mL/min [employer] Phone: GFR Non- >60 >60 mL/min [employer] Phone: GFR/1.73 sq M.predicted MDRD (S/P/Bld) [Vol rate/Area] [employer] Phone: Comment on above: Average GFR for 20-2 9 years old: 116 mL/min/1.73sq m Chronic Kidney Disease: <60 mL/min/1.73sq m Kidney failure: <15 mL/min/1.73sq m eGFR calculated using average adult body mass. Additional eGFR calculator available at: http://www.marshallindex/multiple_crcl_2012.htm GFR/1.73 sq M.predicted MDRD (S/P/Bld) [Vol rate/Area] NOT REPORTED [employer] Phone: Glucose [Mass/Vol] 92 mg/dL 70 - 99 mg/dL [employer] Phone: Potassium [Moles/Vol] 4.2 mmol/L 3.7 - 5.3 mmol/L [employer] Phone: Sodium [Moles/Vol] 135 mmol/L 135 - 144 mmol/L [employer] Phone: Urea nitrogen (BldV) [Mass/Vol] 11 mg/dL 6 - 20 mg/dL [employer] Phone: Urea nitrogen/Creatinine (Bld) [Mass ratio] NOT REPORTED [employer] Phone: Laboratory - Chemistry and C hemistry - challengeOrdered By: Miguel Holley on 09-23-2020 Albumin [Mass/Vol] 4.3 g/dL (3.5-5.2 ) [facility] Work Phone: Comment on above: Note: Responsible Ob in room dining server: [employer] (8124) ALT [Catalytic activity/Vol] 36 U/L High (5-33 ) [facility] Work Phone: Comment on above: Note: Responsible Ob in room dining server: [employer] (3003) Anion gap [Moles/Vol] 11 mmol/L (9-17 ) [facility] Work Phone: Comment on above: Note: Responsible Ob in room dining server: [employer] (3003) AST [Catalytic activity/Vol] 27 U/L (<32 ) [facility] Work Phone: Comment on above: Note: Responsible Ob in room dining server: [employer] (3003) Bilirubin [Mass/Vol] 0.34 mg/dL (0.3-1.2 ) [facility] Work Phone: Comment on above: Note: Responsible Ob in room dining server: [employer] (3003) Calcium [Mass/Vol] 9.5 mg/dL (8.6-10.4 ) [facility] Work Phone: Comment on above: Note: Responsible Ob in room dining server: [employer] (3003) Chloride [Moles/Vol] 102 mmol/L (98-107 ) [facility] Work Phone: Comment on above: Note: Responsible Ob in room dining server: [employer] (3003) Cholesterol [Mass/Vol] 186 mg/dL (<200 ) [facility] Work Phone: Comment on above: Note: Cholesterol Gu idelines:<200 [id number] Borderline>240 UndesirableResponsible Observer: [employer] (3003) Cholesterol.total/Chol esterol in HDL [Mass ratio] 3.8 {ratio} (<5 ) [facility] Work Phone: Comment on above: Note: Responsible Ob in room dining server: [employer] (3003) CO2 [Moles/Vol] 22 mmol/L (20-31 ) [facility] Work Phone: Comment on above: Note: Responsible Ob in room dining server: [employer] (3003) Creatinine [Mass/Vol] 0.46 mg/dL Low (0.50- 0.90 ) [facility] Work Phone: Comment on above: Note: Responsible Ob in room dining server: [employer] (3003) Glucose [Mass/Vol] 92 mg/dL (70-99 ) [facility] Work Phone: Comment on above: Note: Responsible Ob in room dining server: [employer] (3003) Magnesium [Mass/Vol] 49 mg/dL (>40 ) [facility] Work Phone: Comment on above: Note: HDL Guidelines :<40 Skxisqbprfn30-90 Borderline>59 DesirableResponsible Observer: [employer]V [employer] (3003) Magnesium [Mass/Vol] 102 mg/dL (0-130 ) [facility] Work Phone: Comment on above: Note: LDL Guidelines :<100 [id number] Near to/above Tqnfcbrlc004-204 Borderline>159 UndesirableDirect (measured) LDL and calculated LDL are not interchangeable tests.Responsible Observer: [employer] (3003) Magnesium [Mass/Vol] 173 mg/dL High (<150 ) [facility] Work Phone: Comment on above: Note: Triglyceride G uidelines:<150 [id number] [id number] High>499 Very highBased on AHA Guidelines for fasting triglyceride, February 2012.Responsible Observer: [employer] (3003) Potassium [Moles/Vol] 4.2 mmol/L (3.7-5.3 ) [facility] Work Phone: Comment on above: Note: Responsible Ob in room dining server: [employer]EEV [employer] (3003) Protein [Mass/Vol] 7.5 g/dL (6.4-8.3 ) [facility] Work Phone: Comment on above: Note: Responsible Ob in room dining server: CEEV [employer]FILE (3003) Sodium [Moles/Vol] 135 mmol/L (135-144 ) [facility] Work Phone: Comment on above: Note: Responsible Ob in room dining server: [employer]V [employer] (3003) Urea nitrogen [Mass/Vol] 11 mg/dL (6-20 ) [facility] Work Phone: Comment on above: Note: Responsible Ob in room dining server: CEEV [employer] (3003) Laboratory - Hematology and Cell countsOrdered By: Miguel Holley on 09-23-2020 Basophils/100 WBC (Bld) 1 % (0-2 ) [facility] Work Phone: Comment on above: Note: Responsible Ob in room dining server: XNV AUT[employer]FILE (3018) Eosinophils (Bld) [#/Vol] 0.14 10*3/uL (0.00-0.44 ) [facility] Work Phone: Comment on above: Note: Responsible Ob in room dining server: [employer] (3018) Eosinophils/100 WBC (Bld) 2 % (1-4 ) [facility] Work Phone: Comment on above: Note: Responsible Ob in room dining server: [employer] (3018) Erythrocyte distribution width (RBC) [Ratio] 12.4 % (11.8-14.4 ) [facility] Work Phone: Comment on above: Note: Responsible Ob in room dining server: [employer]NV [employer] (3018) Hematocrit (Bld) [Volume fraction] 42.9 % (36.3-47.1 ) [facility] Work Phone: Comment on above: Note: Responsible Ob in room dining server: [employer] (3018) Hemoglobin (Bld) [Mass/Vol] 13.5 g/dL (11.9-15.1 ) [facility] Work Phone: Comment on above: Note: Responsible Ob in room dining server: [employer] (3018) Immature granulocytes/100 WBC (Bld) 0 % (0 ) [facility] Work Phone: Comment on above: Note: Responsible Ob in room dining server: [employer] (3018) Lymphocytes (Bld) [#/Vol] 2.71 10*3/uL (1.10-3.70 ) [facility] Work Phone: Comment on above: Note: Responsible Ob in room dining server: [employer] (3018) Lymphocytes/100 WBC (Bld) 30 % (24-43 ) [facility] Work Phone: Comment on above: Note: Responsible Ob in room dining server: [employer]NV [employer] (3018) MCH (RBC) [Entitic mass] 27.6 pg (25.2-33.5 ) [facility] Work Phone: Comment on above: Note: Responsible Ob in room dining server: [employer] (3018) MCHC (RBC) [Mass/Vol] 31.5 g/dL (28.4- 34.8 ) [facility] Work Phone: Comment on above: Note: Responsible Ob in room dining server: XNV AUTOFILE (3018) MCV (RBC) [Entitic vol] 87.6 fL (82.6-102.9 ) [facility] Work Phone: Comment on above: Note: Responsible Ob in room dining server: XNV AUTOFILE (3018) Monocytes (Bld) [#/Vol] 0.48 10*3/uL (0.10-1.20 ) [facility] Work Phone: Comment on above: Note: Responsible Ob in room dining server: XNV AUTOFILE (3018) Monocytes/100 WBC (Bld) 5 % (3-12 ) [facility] Work Phone: Comment on above: Note: Responsible Ob in room dining server: XNV AUTOFILE (3018) Platelet mean volume (Bld) [Entitic vol] 11.6 fL (8.1-13.5 ) [facility] Work Phone: Comment on above: Note: Responsible Ob in room dining server: XNV AUTOFILE (3018) Platelets (Bld) [#/Vol] 246 10*3/uL (138-453 ) [facility] Work Phone: Comment on above: Note: Responsible Ob in room dining server: XNV AUTOFILE (3018) RBC (Bld) [#/Vol] 4.90 10*6/uL (3.95-5.11 ) [facility] Work Phone: Comment on above: Note: Responsible Ob in room dining server: XNV AUTOFILE (3017) RBC morphology finding Nom (Bld) NOT REPORTED [facility] Work Phone: Segmented neutrophils/100 WBC (Bld) 62 % (36-65 ) [facility] Work Phone: Comment on above: Note: Responsible Ob in room dining server: XNV AUTOFILE (3017) WBC (Bld) [#/Vol] 9.2 10*3/uL (3.5-11.3 ) [facility] Work Phone: Comment on above: Note: Responsible Ob in room dining server: XNV AUTOFILE (3017) Lipid Prof, Fastingon 2020 Cholesterol,VLDL NOT REPORTED Normal 06-29 [facility] Comment on above: Performed By: #### L IPRF, CDP, CP, TSHX #### [address] [place] [address] Slope Tender: Chato Aguirre MD Lipid, FastingOrdered By: Zandra Holley on 09-23-2020 Cholesterol [Mass/Vol] 186 mg/dL <200 [facility] Work Phone: Comment on above: Cholesterol Guidelines: <200 Desirable 200-240 Borderline >240 Undesirable Cholesterol in HDL [Mass/Vol] 49 mg/dL >40 [facility] Phone: Comment on above: HDL Guidelines: <40 Undesirable 40-59 Borderline >59 Desirable Cholesterol in LDL [Mass/Vol] 102 mg/dL 0 - 130 mg/dL [facility] Phone: Comment on above: LDL Guidelines: <100 Desirable 100-129 Near to/above Desirable 130-159 Borderline >159 Undesirable Direct (measured) LDL and calculated LDL are not interchangeable tests. Cholesterol in VLDL [Mass/Vol] NOT REPORTED High 1 - 30 mg/dL [facility] Work Phone: Cholesterol.total/Chol esterol in HDL [Mass ratio] 3.8 {ratio} <5 [facility] Work Phone: Triglyceride, Fasting 173 mg/dL High <150 [facility] Work Phone: Comment on above: Triglyceride Guidelines: <150 Desirable 150-199 Borderline 200-499 High >499 Very high Based on AHA Guidelines for fasting triglyceride, February 2012. No Panel InformationOrdered By: Miguel Holley on 09-23-2020 Interpretation and review of laboratory results Abnormal [facility] [employer] Work Phone: (cont.) See Note [facility] Work Phone: Comment on above: Note: Average GFR fo r 20-29 years old:116 mL/min/1.73sq mChronic Kidney Disease:<60 mL/min/1.73sq mKidney failure:<15 mL/min/1.73sq meGFR calculated using average adult body mass. Additional eGFR calculatoravailable at:http://www.marshallindex/multiple_crcl_2012.htmResponsible Observer: CEEV AUTOFILE (3003) Abs. Basophil 0.05 k/uL (0.00-0.20 ) [facility] Work Phone: Comment on above: Note: Responsible Ob in room dining server: XNV AUTOFILE (3018) Abs.Imm.Granulocyte <0.03 k/uL (0.00-0. 30 ) [facility] Work Phone: Comment on above: Note: Responsible Ob in room dining server: XNV AUTOFILE (3018) Abs.Neutrophil (Seg) 5.79 k/uL (1.50-8 .10 ) [facility] Work Phone: Comment on above: Note: Responsible Ob in room dining server: XNV AUTOFILE (3018) Albumin/Glob Ratio 1.3 (1.0-2.5 ) [facility] Work Phone: Comment on above: Note: Responsible Ob in room dining server: CEEV AUTOFILE (3003) Alkaline Phos 49 U/L (35-104 ) [facility] Work Phone: Comment on above: Note: Responsible Ob in room dining server: CEEV AUTOFILE (3003) Auto Diff Performed NOT REPORTED [facility] Work Phone: BUN/CRE Ratio NOT REPORTED (9-20 ) [facility] Work Phone: Cholesterol,VLDL NOT REPORTED mg/dL (1-30 ) [facility] Work Phone: GFR, Amer >60 mL/min (>60 ) [facility] Work Phone: Comment on above: Note: Responsible Ob in room dining server: CEEV AUTOFILE (3003) GFR,non Amer >60 mL/min (>60 ) [facility] Work Phone: Comment on above: Note: Responsible Ob in room dining server: CEEV AUTOFILE (3003) NRBC Automated 0.0 per_100_WBC (0.0 ) [facility] Work Phone: Comment on above: Note: Responsible Ob in room dining server: XNV AUTOFILE (9701) Platelet Estimate NOT REPORTED [facility] Work Phone: Reported Physicians See Note [facility] Work Phone: Comment on above: Note: Reported Physi cians:Ordering: Cotton, AimeeAttending: Cotton, AimeeReferring: Cotton, Miguel Staging: NOT REPORTED [facility] Work Phone: Thyroid Stim. Horm. 3.38 mIU/L (0.30-5. 00 ) [facility] Work Phone: Comment on above: Note: Responsible Ob in room dining server: CEEV AUTOFILE (3003) WBC Morphology NOT REPORTED [facility] Work Phone: TSH with ReflexOrdered By: Kamryn Holley on 09-23-2020 TSH Qn 3.38 m[IU]/L [facility] Work Phone: APTTon 04-08-2020 aPTT Coag (Bld) [Time] 25.2 s [place] Comment on above: IV Heparin Therapy Range: 62.0-94.0 Brain Natriuretic Peptideon 04-08-2020 Natriuretic peptide B (Bld) [Mass/Vol] pg/mL <300 pg/mL [place] Comment on above: Pro-BNP results ayse ot be compared to BNP results. Natriuretic peptide B (Bld) [Mass/Vol] Pro-BNP Reference Range: [place], [place] Comment on above: Rule Out: <300 Weaver Zone: Age <50 300-450 Age 50-75 300-900 Age >75 300-1800 Usually represents mild to moderate HF but other cardiopulmonary causes cannot be ruled out. Rule In: Age <50 >450 Age 50-75 >900 Age >75 >1800 CBCon 04-08-2020 Erythrocyte distribution width (RBC) [Ratio] 11.9 % 11.8 - 14.4 % [place] Hematocrit (Bld) [Volume fraction] 37.9 % 36.3 - 47.1 % [place] Hemoglobin (Bld) [Mass/Vol] 12.5 g/dL 11.9 - 15.1 g/dL [place] MCH (RBC) [Entitic mass] 27.8 pg 25.2 - 33.5 pg [place] MCHC (RBC) [Mass/Vol] 33.0 g/dL 28.4 - 34.8 g/dL [place] MCV (RBC) [Entitic vol] 84.2 fL 82.6 - 102.9 fL [place] Platelet mean volume (Bld) [Entitic vol] 10.9 fL 8.1 - 13.5 fL [place] Platelets (Bld) [#/Vol] 184 10*3/uL [place] RBC (Bld) [#/Vol] 4.50 10*6/uL 3.95 - 5.1 1 m/uL [place] WBC (Bld) [#/Vol] 7.8 10*3/uL [place] WBC (Bld) [#/Vol] 0.0 10*3/uL 0.0 per 10 0 WBC [place] COVID-19on 04-08-2020 Interpretation and review of laboratory results Abnormal [place] SARS-CoV-2, Rapid DETECTED Abnormal Not Detected [place] Comment on above: Rapid NAAT: The [...] this assay. Fact sheet for Healthcare Providers: https://www.fda.gov/media/476257/download Fact sheet for Patients: https://www.fda.gov/media/532705/download Methodology: Isothermal Nucleic Acid Amplification Results reported to the appropriate Health Department Source .NASOPHARYNGEAL SWAB [place], [place] CT CHEST PULMONARY EMBOLISM W CONTRASTon 04-08-2020 Unremarkable appeara nce of the chest with no evidence of pulmonary embolism and clear lungs. Incidentally noted hepatic fatty infiltration. [place] EXAMINATION: CTA OF THE CHEST 04/08/2020 [...] No significant osseous or soft tissue abnormality. [place], [place] Jean Marie, Alvina Incoming Radiant Results From [employer] - 04/08/2020 4:12 PM EST EXAMINATION: CTA [...] clear lungs. Incidentally noted hepatic fatty infiltration. [place] Comprehensive Metabolic Pane fermin 04-08-2020 Albumin [Mass/Vol] 4.1 g/dL 3.5 - 5.2 g/dL [place] Albumin/Globulin [Mass ratio] 1.4 {ratio} [place] ALP [Catalytic activity/Vol] 62 U/L 35 - 104 U/L [place] ALT [Catalytic activity/Vol] 19 U/L 5 - 33 U/L [place] Anion gap [Moles/Vol] 10 mmol/L 9 - 17 mmol/L [place] AST [Catalytic activity/Vol] 20 U/L <32 [place] Bilirubin Ql (U) 0.48 mg/dL 0.3 - 1.2 mg/dL [place] Bun/Cre Ratio 23 High [place] Calcium [Mass/Vol] 8.9 mg/dL 8.6 - 10. 4 mg/dL [place] Chloride [Moles/Vol] 102 mmol/L 98 - 10 7 mmol/L [place] CO2 [Moles/Vol] 23 mmol/L 20 - 31 mmol/L [place] Creatinine [Mass/Vol] 0.47 mg/dL Low 0.5 - 0.9 mg/dL [place] GFR >60 >60 mL/min [place] GFR Non- >60 >60 mL/min [place] Glucose [Mass/Vol] 88 mg/dL 70 - 99 mg/dL [place] Interpretation and review of laboratory results Abnormal [place] Potassium [Moles/Vol] 3.7 mmol/L 3.7 - 5.3 mmol/L [place] Protein [Mass/Vol] 7.1 g/dL 6.4 - 8.3 g/dL [place] Sodium [Moles/Vol] 135 mmol/L 135 - 144 mmol/L [place] Urea nitrogen [Mass/Vol] 11 mg/dL 6 - 20 mg/dL [place] Metabolic Panelon 04-08-2020 GFR/1.73 sq M predicted among non-blacks MDRD (S/P/Bld) [Vol rate/Area] [place] Comment on above: Stage 1: Some [...] body mass. Additional eGFR calculator available at: http://www.marshallindex/multiple_crcl_2012.htm Otheron 04-08-2020 SARS-CoV-2 [place], [place] , Urineon 0 Beta HCG ( test) Ql (U) Negative NEGATIVE [place] Comment on above: Specimens with hCG l evels near the threshold of the test (25 mIU/mL) may give a negative or indeterminate result. In such cases, another test should be performed with a new specimen in 48-72 hours. If early is suspected clinically in this setting, correlation with quantitative serum b-hCG level is suggested. [facility] has confirmed the use of plasma for this test. This has not been cleared or approved by the U.S. Food and Drug Administration. The FDA has determined that such clearance is not necessary. Protime-INRon 04-08-2020 INR Coag (PPP) [Relative time] 1.0 {INR} [place] Comment on above: Non-therapeutic Range: INR = 0.9-1.2 Therapeutic Range: Moderate Anticoagulant Intensity: INR = 2.0-3.0 High Anticoagulant Intensity: INR = 2.5-3.5 PT Coag (PPP) [Time] 13.2 s [place] Troponinon 04-08-2020 Troponin I.cardiac [Mass/Vol] NOT REPORTED [place] Troponin T.cardiac [Mass/Vol] NOT REPORTED <0.03 ng/mL [place] Troponin, High Sensitivity <6 0 - 14 ng/L [place] Comment on above: High Sensitivity Troponin values cannot be compared with other Troponin methodologies. Patients with high levels of Biotin oral intake (i.e >5mg/day) may have falsely decreased Troponin levels. Samples collected within 8 hours of biotin intake may require additional information for diagnosis. CBC Auto Differentialon Basophils (Bld) [#/Vol] 0.05 10*3/uL [facility] Phone: Basophils/100 WBC (Bld) 1 % 0 - 2 % [facility] Phone: Differential Type NOT REPORTED [facility] Phone: Eosinophils (Bld) [#/Vol] 0.15 10*3/uL [facility] Phone: Eosinophils/100 WBC (Bld) 1 % 1 - 4 % [facility] Phone: Erythrocyte distribution width (RBC) [Ratio] 12.1 % 11.8 - 14.4 % [facility] Phone: Hematocrit (Bld) [Volume fraction] 44.5 % 36.3 - 47.1 % [facility] Phone: Hemoglobin (Bld) [Mass/Vol] 14.0 g/dL 11.9 - 15.1 g/dL [facility] Phone: Immature granulocytes (Bld) [#/Vol] 0 % 0 [facility] Phone: Immature granulocytes (Bld) [#/Vol] 10*3/uL [facility] Phone: Interpretation and review of laboratory results Abnormal [facility] Phone: Lymphocytes (Bld) [#/Vol] 2.83 10*3/uL [facility] Phone: Lymphocytes/100 WBC (Bld) 27 % 24 - 43 % [facility] Phone: MCH (RBC) [Entitic mass] 27.6 pg 25.2 - 33.5 pg [facility] Phone: MCHC (RBC) [Mass/Vol] 31.5 g/dL 28.4 - 34.8 g/dL [facility] Phone: MCV (RBC) [Entitic vol] 87.6 fL 82.6 - 102.9 fL [facility] Phone: Monocytes (Bld) [#/Vol] 0.52 10*3/uL [facility] Phone: Monocytes/100 WBC (Bld) 5 % 3 - 12 % [facility] Phone: Platelet mean volume (Bld) [Entitic vol] 12.0 fL 8.1 - 13.5 fL [facility] Phone: Platelets (Bld) [#/Vol] NOT REPORTED [employer] Work Phone: Platelets (Bld) [#/Vol] 241 10*3/uL [employer] Work Phone: RBC (Bld) [#/Vol] 5.08 10*6/uL 3.95 - 5.1 1 m/uL [employer] Work Phone: RBC morphology finding Nom (Bld) NOT REPORTED [employer] Work Phone: Segmented neutrophils/100 WBC (Bld) 66 % High 36 - 65 % [employer] Work Phone: Segs Absolute 7.04 [employer] [facility] Work Phone: WBC (Bld) [#/Vol] 10.6 10*3/uL [employer] Work Phone: WBC (Bld) [#/Vol] 0.0 10*3/uL 0.0 per 10 0 WBC [employer] Work Phone: WBC Morphology NOT REPORTED [facility] Work Phone: [facility]acon 07-06-2019 Cholesterol [Mass/Vol] 198 mg/dL (<200) [facility] Work Phone: Comment on above: Note: Cholesterol Gu idelines:<200 [id number] Borderline>240 UndesirableResponsible Observer: CCEV AUTOFILE ([id number]) Comprehensive Metabolic Pane fermin 07-06-2019 Albumin [Mass/Vol] 4.5 g/dL 3.5 - 5.2 g/dL [employer] Work Phone: Albumin/Globulin [Mass ratio] 1.4 {ratio} [employer] Work Phone: ALP [Catalytic activity/Vol] 62 U/L 35 - 104 U/L [employer] Work Phone: ALT [Catalytic activity/Vol] 39 U/L High 5 - 33 U/L [employer] Work Phone: Anion gap [Moles/Vol] 16 mmol/L 9 - 17 mmol/L [facility] Phone: AST [Catalytic activity/Vol] 32 U/L High <32 [facility] Phone: Bilirubin Ql (U) 0.25 mg/dL Low 0.3 - 1.2 mg/dL [facility] Phone: Bun/Cre Ratio NOT REPORTED [employer] Work Phone: Calcium [Mass/Vol] 9.8 mg/dL 8.6 - 10. 4 mg/dL [facility] Phone: Chloride [Moles/Vol] 103 mmol/L 98 - 10 7 mmol/L [facility] Phone: CO2 [Moles/Vol] 19 mmol/L Low 20 - 31 mmol/L [facility] Phone: Creatinine [Mass/Vol] 0.51 mg/dL 0.5 - 0.9 mg/dL [facility] Phone: GFR >60 >60 mL/min [employer] Phone: GFR Non- >60 >60 mL/min [facility] Phone: GFR/1.73 sq M predicted among non-blacks MDRD (S/P/Bld) [Vol rate/Area] [facility] Phone: Comment on above: Average GFR for 20-2 9 years old: 116 mL/min/1.73sq m Chronic Kidney Disease: <60 mL/min/1.73sq m Kidney failure: <15 mL/min/1.73sq m eGFR calculated using average adult body mass. Additional eGFR calculator available at: http://www.GeoGames.Viptable/multiple_crcl_2012.htm GFR/1.73 sq M predicted among non-blacks MDRD (S/P/Bld) [Vol rate/Area] NOT REPORTED [facility] Phone: Glucose [Mass/Vol] 89 mg/dL 70 - 99 mg/dL [facility] Phone: Interpretation and review of laboratory results Abnormal [facility] Phone: Potassium [Moles/Vol] 4.6 mmol/L 3.7 - 5.3 mmol/L [facility] Phone: Protein [Mass/Vol] 7.8 g/dL 6.4 - 8.3 g/dL [facility] Phone: Sodium [Moles/Vol] 138 mmol/L 135 - 144 mmol/L [facility] Phone: Urea nitrogen [Mass/Vol] 14 mg/dL 6 - 20 mg/dL [facility] Phone: Hematologyon 07-06-2019 Basophils/100 WBC (Bld) 1 % (0-2) [facility] Work Phone: Comment on above: Note: Responsible Ob in room dining server: XNV AUTOFILE (3018) Eosinophils (Bld) [#/Vol] 0.15 10*3/uL (0.00-0.44) [facility] Work Phone: Comment on above: Note: Responsible Ob in room dining server: XNV AUTOFILE (3018) Eosinophils/100 WBC (Bld) 1 % (1-4) [facility] Work Phone: Comment on above: Note: Responsible Ob in room dining server: XNV AUTOFILE (3018) Hematocrit (Bld) [Volume fraction] 44.5 % (36.3-47.1) [facility] Work Phone: Comment on above: Note: Responsible Ob in room dining server: XNV AUTOFILE (3018) Hemoglobin (Bld) [Mass/Vol] 14.0 g/dL (11.9-15.1) [facility] Work Phone: Comment on above: Note: Responsible Ob in room dining server: XNV AUTOFILE (3018) Lymphocytes (Bld) [#/Vol] 2.83 10*3/uL (1.10-3.70) [facility] Work Phone: [phone] Comment on above: Note: Responsible Ob in room dining server: XNV AUTOFILE (3018) Lymphocytes/100 WBC (Bld) 27 % (24-43) [facility] Work Phone: [phone] Comment on above: Note: Responsible Ob in room dining server: XNV AUTOFILE (3018) MCH (RBC) [Entitic mass] 27.6 pg (25.2-33.5) [facility] Work Phone: [phone] Comment on above: Note: Responsible Ob in room dining server: XNV AUTOFILE (3018) MCV (RBC) [Entitic vol] 87.6 fL (82.6-102.9 ) [facility] Work Phone: [phone] Comment on above: Note: Responsible Ob in room dining server: XNV AUTOFILE (3018) Monocytes (Bld) [#/Vol] 0.52 10*3/uL (0.10-1.20) [facility] Work Phone: [phone] Comment on above: Note: Responsible Ob in room dining server: XNV AUTOFILE (3018) Monocytes/100 WBC (Bld) 5 % (3-12) [facility] Work Phone: [phone] Comment on above: Note: Responsible Ob in room dining server: XNV AUTOFILE (3018) Platelets (Bld) [#/Vol] NOT REPORTED [facility] Work Phone: [phone] Platelets (Bld) [#/Vol] 241 10*3/uL (138-453) [facility] Work Phone: [phone] Comment on above: Note: Responsible Ob in room dining server: XNV AUTOFILE (3018) RBC (Bld) [#/Vol] 5.08 10*6/uL (3.95-5.11) [facility] Work Phone: [phone] Comment on above: Note: Responsible Ob in room dining server: XNV AUTOFILE (3018) RBC morphology finding Nom (Bld) NOT REPORTED [facility] Work Phone: [phone] WBC (Bld) [#/Vol] 0.0 per_100_WBC (0.0) [facility] Work Phone: Comment on above: Note: Responsible Ob in room dining server: XNV AUTOFILE (9804) WBC (Bld) [#/Vol] 10.6 10*3/uL (3.5-11.3) [facility] Work Phone: Comment on above: Note: Responsible Ob in room dining server: XNV AUTOFILE (0956) Lipid, Fastingon 07-06-2019 Cholesterol [Mass/Vol] 198 mg/dL <200 [facility] Work Phone: Comment on above: Cholesterol Guidelines: <200 Desirable 200-240 Borderline >240 Undesirable Cholesterol in HDL [Mass/Vol] 53 mg/dL >40 [facility] Comment on above: HDL Guidelines: <40 Undesirable 40-59 Borderline >59 Desirable Cholesterol in LDL [Mass/Vol] 118 mg/dL 0 - 130 mg/dL [facility] Comment on above: LDL Guidelines: <100 Desirable 100-129 Near to/above Desirable 130-159 Borderline >159 Undesirable Direct (measured) LDL and calculated LDL are not interchangeable tests. Cholesterol in VLDL [Mass/Vol] NOT REPORTED 1 - 30 mg/dL [facility]: Cholesterol.total/Chol esterol in HDL [Mass ratio] 3.7 {ratio} <5 [facility]: Triglyceride, Fasting 135 mg/dL <150 [facility] [employer] Work Phone: Comment on above: Triglyceride Guidelines: <150 Desirable 150-199 Borderline 200-499 High >499 Very high Based on AHA Guidelines for fasting triglyceride, February 2012. Metabolic Panelon 07-06-2019 Albumin [Mass/Vol] 4.5 g/dL (3.5-5.2) [facility] Work Phone: Comment on above: Note: Responsible Ob in room dining server: CCEV AUTOFILE (3316) ALT [Catalytic activity/Vol] 39 U/L High (5-33) [facility] Work Phone: Comment on above: Note: Responsible Ob in room dining server: CCEV AUTOFILE (3002) Anion gap [Moles/Vol] 16 mmol/L (9-17) [facility] Work Phone: Comment on above: Note: Responsible Ob in room dining server: CCEV AUTOFILE (3002) AST [Catalytic activity/Vol] 32 U/L High (<32) [facility] Work Phone: Comment on above: Note: Responsible Ob in room dining server: CCEV AUTOFILE (3002) Bilirubin [Mass/Vol] 0.25 mg/dL Low (0.3-1.2) [facility] Work Phone: Comment on above: Note: Responsible Ob in room dining server: CCEV AUTOFILE (3002) Calcium [Mass/Vol] 9.8 mg/dL (8.6-10.4) [facility] Work Phone: Comment on above: Note: Responsible Ob in room dining server: CCEV AUTOFILE (3002) Chloride [Moles/Vol] 103 mmol/L (98-107) [facility] Work Phone: Comment on above: Note: Responsible Ob in room dining server: CCEV AUTOFILE (3002) CO2 [Moles/Vol] 19 mmol/L Low (20-31) [facility] Work Phone: Comment on above: Note: Responsible Ob in room dining server: CCEV AUTOFILE (3002) Creatinine [Mass/Vol] 0.51 mg/dL (0.50-0.90) [facility] Work Phone: Comment on above: Note: Responsible Ob in room dining server: CCEV AUTOFILE (3002) Glucose [Mass/Vol] 89 mg/dL (70-99) [facility] Work Phone: Comment on above: Note: Responsible Ob in room dining server: CCEV AUTOFILE (3002) Potassium [Moles/Vol] 4.6 mmol/L (3.7-5.3) [facility] Work Phone: Comment on above: Note: Responsible Ob in room dining server: CCEV AUTOFILE (3002) Protein [Mass/Vol] 7.8 g/dL (6.4-8.3) [facility] Work Phone: Comment on above: Note: Responsible Ob in room dining server: CCEV AUTOFILE (3002) Sodium [Moles/Vol] 138 mmol/L (135-144) [facility] Work Phone: Comment on above: Note: Responsible Ob in room dining server: CCEV AUTOFILE (3002) Urea nitrogen [Mass/Vol] 14 mg/dL (6-20) [facility] Work Phone: Comment on above: Note: Responsible Ob in room dining server: CCEV AUTOFILE (3002) Otheron 07-06-2019 (cont.) See Note [facility] Work Phone: Comment on above: Note: Average GFR fo r 20-29 years old:116 mL/min/1.73sq mChronic Kidney Disease:<60 mL/min/1.73sq mKidney failure:<15 mL/min/1.73sq meGFR calculated using average adult body mass. Additional eGFR calculatoravailable at:http://www.marshallindex/multiple_crcl_2012.htmResponsible Observer: CCEV AUTOFILE (3002) Abs. Basophil 0.05 k/uL (0.00-0.20) [facility] Work Phone: Comment on above: Note: Responsible Ob in room dining server: XNV AUTOFILE (3018) Abs.Imm.Granulocyte <0.03 k/uL (0.00-0.30) [facility] Work Phone: Comment on above: Note: Responsible Ob in room dining server: XNV AUTOFILE (3018) Abs.Neutrophil (Seg) 7.04 k/uL (1.50-8.10) [facility] Work Phone: Comment on above: Note: Responsible Ob in room dining server: XNV AUTOFILE (3018) Albumin/Glob Ratio 1.4 (1.0-2.5) [facility] Work Phone: Comment on above: Note: Responsible Ob in room dining server: CCEV AUTOFILE (3002) Alkaline Phos 62 U/L (35-104) [facility] Work Phone: [phone] Comment on above: Note: Responsible Ob in room dining server: CCEV AUTOFILE (3002) Auto Diff Performed NOT REPORTED [facility] Work [facility]: [phone] BUN/CRE Ratio NOT REPORTED (9-20) [facility] Work Phone: [phone] Cholesterol,HDL 53 mg/dL (>40) [facility] Work Phone: [phone] Comment on above: Note: HDL Guidelines :<40 [id number] Borderline>59 DesirableResponsible Observer: CCEV AUTOFILE (3002) Cholesterol,LDL 118 mg/dL (0-130) [facility] Work Phone: Comment on above: Note: LDL Guidelines :<100 [id number] Near to/above [id number] Borderline>159 UndesirableDirect (measured) LDL and calculated LDL are not interchangeable tests.Responsible Observer: CCEV AUTOFILE (3002) Cholesterol,VLDL NOT REPORTED mg/dL (-30) [facility] Work Phone: [phone] Cholesterol.total/Chol esterol in HDL [Mass ratio] 3.7 {ratio} (<5) [facility] Work Phone: [phone] Comment on above: Note: Responsible Ob in room dining server: CCEV AUTOFILE (3002) Erythrocyte distribution width (RBC) [Ratio] 12.1 % (11.8-14.4) [facility] Work Phone: [phone] Comment on above: Note: Responsible Ob in room dining server: XNV AUTOFILE (3018) Free Insulin 34 uIU/mL High (3-19) [facility] Work Phone: [phone] Comment on above: Note: Responsible Ob in room dining server: LAB [facility] (0603) GFR, Amer >60 mL/min (>60) [facility] Work Phone: Comment on above: Note: Responsible Ob in room dining server: CCEV AUTOFILE (3002) GFR,non Amer >60 mL/min (>60) [facility] Work Phone: [phone] Comment on above: Note: Responsible Ob in room dining server: CCEV AUTOFILE (3002) Immature granulocytes (Bld) [#/Vol] 0 % (0) [facility] Work Phone: [phone] Comment on above: Note: Responsible Ob in room dining server: XNV AUTOFILE (3018) MCHC (RBC) [Mass/Vol] 31.5 g/dL (28.4-34.8) [facility] Work Phone: [phone] Comment on above: Note: Responsible Ob in room dining server: XNV AUTOFILE (3017) Performing Lab: see note [facility] Work Phone: [phone] Comment on above: Note: [facility] [address] [facility] [id number] Note: [facility] [address] [facility] [address] Platelet mean volume (Bld) [Entitic vol] 12.0 fL (8.1-13.5) [facility] Work Phone: [phone] Comment on above: Note: Responsible Ob in room dining server: XNV AUTOFILE (3017) Reported Physicians See Note [facility] [facility] Work Phone: [phone] Comment on above: Note: Reported Physi cians:Ordering: Allyson Floyd AAttending: No FloydthiaReferring: Allyson Floyd Segmented neutrophils/100 WBC (Bld) 66 % High (36-65) [facility] Work Phone: [phone] Comment on above: Note: Responsible Ob in room dining server: XNV AUTOFILE (3017) Staging: NOT REPORTED [facility] Work Phone: [phone] Thyroid Stim. Horm. 4.15 mIU/L (0.30-5.00) [facility] Work Phone: [phone] Comment on above: Note: Responsible Ob in room dining server: CCEV AUTOFILE (3002) Thyroxine, Free 1.21 ng/dL (0.93-1.70) [facility] Work Phone: Comment on above: Note: Responsible Ob in room dining server: CCEV AUTOFILE (3002) Total Insulin 46 uIU/mL High (3-19) [facility] Work Phone: Comment on above: Note: (NOTE)INTERPRE TIVE INFORMATION: Insulin, Free and TotalThis test reacts on a nearly equimolar basis with the analogsinsulin aspart, insulin glargine, and insulin lispro. Insulindetemir exhibits approximately 50 percent cross-reactivity. Testreactivity with insulin glulisine is negligible (<3 percent). Toconvert to pmol/L, multiply uIU/mL by 6.0. Reference intervalsestablished for fasting specimens.Performed by [facility],[address] [place] [id number] lvw.[facility], [place] Xiong MD, Lab. DirectorResponsible Observer: LAB KIERAN (06) Triglyceride,Fasting 135 mg/dL (<150) [facility] Work Phone: Comment on above: Note: Triglyceride G uidelines:<150 Ijibjkmhc854-315 Yacidtbvml362-864 High>499 Very highBased on AHA Guidelines for fasting triglyceride, February 2012.Responsible Observer: CCEV AUTOFILE (3002) Triiodothyronine T3 150 ng/dL (80-200) [facility] Work Phone: Comment on above: Note: Responsible Ob in room dining server: CEEV AUTOFILE (3003) WBC Morphology NOT REPORTED [facility] Work Phone: T3on 07-06-2019 T3, Total 150 ng/dL 80 - 200 ng/dL [facility] Phone: T4, Freeon 07-06-2019 Thyroxine, Free 1.21 ng/dL 0.93 - 1.7 ng/dL [facility] Phone: TSH without Reflexon 020 TSH Qn 4.15 m[IU]/L [employer] Work Phone: US NON OB TRANSVAGINALon Satisfactory IUD position. RECOMMENDATIONS: No follow-up imaging is recommended. Reference: US BPRs based on Radiology 2009;256(3):943-54; CT/MR BPRs based on J Am Joanne Radiol 2013;10:675-681. [place], [place] EXAMINATION: PELVIC ULTRASOUND 02/02/2019 TECHNIQUE: Transvaginal pelvic [...] Free Fluid: No evidence of free fluid. [place], [place] Jean Marie, Mhpn Incoming Radiant Results From [employer] - 02/02/2019 8:44 AM EDT EXAMINATION: PELVIC [...] recommended. Reference: US BPRs based on Radiology 2009;256(3):943-54; CT/MR BPRs based on J Am Joanne Radiol 2013;10:675-681. [facility] CNOV Office Visit (WALK[facility] ) ----- ESTEFANIA HERRERA ([id number]) 1995 F Date Time Provider Department 08/21/18 12:00 PM MIGUEL LOVELACE (DIANELYS) WALKBR During your visit today, we recorded the following information about you: Temperature Pulse Respiration Blood pressure 97.6 degrees 99/minute 16/minute 136/81 Weight 109.8 kg Miguel Lovelace APRN.CNP 08/21/2018 12:46 PM Signed Subjective The history is provided by the patient. No russian language professor was used. Cough This is a new [...] TESTING due on 2017 GC (GONORRHEA) SCREENING (18-24) due on 10/20/2017 CHLAMYDIA SCREENING (18-24) due [...] is a safe and effective decongestant 3. Boyle Nasal Sanibel may offer relief of nasal and head [...] help open respiratory and sinus passages. - Boyle Nasal Sanibel may offer relief of nasal and head [...] get worse. [facility] I appreciate your confidence in choosing the [facility] for your medical care. Miguel Lovelace APRN.MAGNETIC TESTING TECHNICIAN [facility] WALK IN [facility] [address] [facility] [address] Referring Provider: SELF [200] Allergies As of [...] is a safe and effective decongestant 3. Boyle Nasal Sanibel may offer relief of nasal and head [...] help open respiratory and sinus passages. - Boyle Nasal Sanibel may offer relief of nasal and head [...] get worse. Thank you for coming to [facility] today. I appreciate your confidence in choosing the [facility] for your medical care. Miguel Lovelace APRN.[facility] [address] [address] Prescriptions ordered this encounter Disp Refills Start [...] by MIGUEL LOVELACE CNP on 08/21/18 Normal [facility] PROGRESSon 08-21-2018 Protein mass conc HNO ID: [id number] Author: Miguel Lovelace Service: ? Author Type: Nurse Practitioner Type: Progress Notes Filed: 08/21/2018 12:46 PM Note Text: Subjective The history is provided by the patient. No russian language professor was used. Cough This is a new [...] TESTING due on 2017 GC (GONORRHEA) SCREENING (18-24) due on 10/20/2017 CHLAMYDIA SCREENING (18-24) due [...] 3-5 days or get worse Miguel Lovelace APRN.MAGNETIC TESTING TECHNICIAN [facility] CNCOon 12-22-2017 CNCO Letter Text Erica Velazquez MD [facility] [address] [place] [address] Estefania Herrera December 22, 2017 Estefania Herrera [id number] [address] [facility] [address] Dear Ms. Herrera, It was noted that you did not keep your scheduled appointment on 12-22-17. It is important to contact the office in advance if you are unable to keep your appointment so that it is available for other patients. Your medical care is important to us. Please call our office to reschedule an appointment. Sincerely, Erica Velazquez MD [facility] Consult Reporton 01-05-2017 Consult Report Patient: JITENDRA HERRERA Age: 21 years Sex: Female : 1995 Associated Diagnoses: None Author: TYRON MA RES, KAREN [facility] Podiatry DepartmentReason for Consult: Active Problems [...] discussed with attending physician, Dr. Jaime Ackerman [phone] ically Signed by: KAREN ACKERMAN DPM, RES on 01/04/2017 13:59 EDTElectronically Co-Signed by: Cecelia ACKERMAN DPM, RES 01/04/2017 14:37 EDTElectronically Co-Signed by: Rene REYES DPM 01/05/2017 18:28 EDT Normal [facility] APTTon 01-04-2017 aPTT 29.9 Second(s) Normal [facility] Comment on above: Result Comment: VERI FIED by Discern Expert. Performed By: #### 1 00402, 6137869, 687818, 763589, 409001, 502877 ####[facility] [address] [place] [id number] Medical Director: David Doe MD aPTT 25.9 Second(s) Normal 25.0-36.0 [facility] Comment on above: Performed By: #### 1 60462, 2415613, 880372, 677705, 422765, 996226 ####[facility] Rib[address]uv[address] [place] [id number]) [phone] Director: David Doe MD AUTO DIFFon 01-04-2017 Basophils Auto #/vol (Bld) 0.04 x1000 Normal 0.00-0.20 [facility] Comment on above: Performed By: #### 1 80047, 8155871, 553665, 733081, 462106, 787672 ####[facility] [address]dpwrubc139[address] [place], [place] [id number]) [phone] Director: David Doe MD Basos % 0.5 % Normal [facility] Comment on above: Performed By: #### 1 00776, 2277274, 905620, 276226, 051903, 488924 ####[facility] Qifcsrle18218 [place], [place] [id number]) [phone] Director: David Doe MD Eos Count 0.10 x1000 Normal 0.00-0.50 [facility] Comment on above: Performed By: #### 1 75725, 8493805, 406598, 672217, 979181, 061471 ####[facility] [address]yn[address]ffg38[address] [place], [place] [id number]) [phone] Director: David Doe MD Eosinophils/100 leukocytes 1.0 % Normal [facility] Comment on above: Performed By: #### 1 47315, 8449376, 840859, 194382, 720717, 960596 ####[facility] [address]fv[address] [place] [address] Medical Director: David Doe MD Lymphocytes 2.84 x1000 Normal 1.20-4.80 [facility] Comment on above: Performed By: #### 1 43734, 1288815, 444977, 604772, 012220, 318900 ####[facility] [address]mtwugd24[address] [place] [address] Medical Director: David Doe MD Lymphocytes/100 leukocytes 29.4 % Normal [facility] Comment on above: Performed By: #### 1 86860, 6188518, 544476, 481783, 757238, 667016 ####[facility] [address]qorg64[address] [place] [address] Medical Director: David Doe MD Colquitt Count 0.68 x1000 Normal 0.10-1.00 [facility] Comment on above: Performed By: #### 1 91811, 9050024, 179597, 462491, 194706, 060817 ####[facility] [address]ld359[address] [place] [address] Medical Director: David Doe MD Monocytes/100 leukocytes 7.0 % Normal [facility] Comment on above: Performed By: #### 1 92931, 5513293, 248815, 924818, 639315, 271304 ####[facility] [address]texw[address] [place] [address] Medical Director: David Doe MD Neutrophils 5.98 x1000 Normal 1.40-8.80 [facility] Comment on above: Performed By: #### 1 66413, 6714463, 004445, 864280, 897032, 764939 ####[facility] [address]ewrx944[address] [place] [address] Medical Director: David Doe MD Neutrophils/100 WBC Auto (Bld) 62.0 % Normal [facility] Comment on above: Performed By: #### 1 38363, 7673757, 218196, 679261, 526856, 395357 ####[facility] [address]eh[address] [place] [address] Medical Director: David Doe MD COMPMETAon 01-04-2017 Globulin 4.0 g/dL Normal [facility] Comment on above: Performed By: #### 1 66147, 8719382, 394200, 218596, 719530, 079922 ####[facility] [address]rh[address]qoxn316[address] [place] [address] Medical Director: David Doe MD Osmolality 277 mOsm/kg Normal 275-295 [facility] Comment on above: Performed By: #### 1 53590, 8717658, 020088, 006192, 696514, 398028 ####[facility] [address]cb[address]ira[address] [place] [address] Medical Director: David Doe MD eGFR (non-black) mL/min/{1.73_m2} Normal [facility] Comment on above: Result Comment: Afri can Icelandic GFR Calc Performed By: #### 1 83785, 0233484, 192229, 658923, 912403, 976745 ####[facility] [address]gh747[address] [place] [address] Medical Director: David Doe MD Result Comment: Non GFR CalcMedical judgement is necessary to interpret GFR. The calculated GFR may not accurately reflect renal status in patients >70 years, women, acutely ill hospitalized patients and patients with acute renal failure or known renal disease.Note:Creatinine clearance (not GFR) should be used for drug dosing. Albumin/Globulin Ratio 0.8 {ratio} Normal [facility] Comment on above: Performed By: #### 1 80372, 0821394, 698958, 819598, 999431, 418224 ####[facility] [address]bfp[address] [place] [address] Medical Director: David Doe MD BUN/Creatinine Ratio 17.6 mg/mg Normal [facility] Comment on above: Performed By: #### 1 16899, 7657607, 659950, 082661, 569540, 163383 ####[facility] [address] [place] [address] Medical Director: David Doe MD Alk Phos 61 unit/L Normal 45-117 [facility] Comment on above: Performed By: #### 1 78806, 2863100, 900892, 573005, 228799, 041125 ####[facility] [address]hlmmlx45[address] [place] [address] Medical Director: David Doe MD Bilirubin (total) 0.41 mg/dL Normal 0.20-1.00 [facility] Comment on above: Performed By: #### 1 15839, 2824469, 677186, 425122, 686902, 965529 ####[facility] [address]yt[address] [place], [place] [address]) [phone] Director: David Doe MD Protein 7.4 g/dL Normal 6.0-8.5 [facility] Comment on above: Performed By: #### 1 63167, 8487442, 665649, 871210, 990293, 771971 ####[facility] [address]sfvw[address] [place] [address] [facility] Director: David Doe MD GPT 16 unit/L Normal 13-56 [facility] Comment on above: Result Comment: Mariposa puncture should occur prior to sulfasalazine and/or sulfapyridine administration due to the potential for falsely depressed results.Baseline assay values before administration of sulfasalazine and sulfapyridine therapy would not be affected. Performed By: #### 1 64304, 0040699, 046022, 420765, 371377, 077688 ####[facility] [address]mkabep85495 [place] [address] Medical Director: David Doe MD Creatinine 0.7 mg/dL Normal 0.6-1.0 [facility] Comment on above: Performed By: #### 1 13422, 2384355, 960212, 266470, 423038, 753230 ####[facility] [address]cgjjs64[address] [place] [address] Medical Director: David Doe MD GOT 14 unit/L Low 15-37 [facility] Comment on above: Result Comment: Mariposa puncture should occur prior to sulfasalazine and/or sulfapyridine administration due to the potential for falsely depressed results.Baseline assay values before administration of sulfasalazine and sulfapyridine therapy would not be affected. Performed By: #### 1 93362, 4146077, 682872, 777796, 778174, 726536 ####[facility] [address]qccj21442 [place] [address] Medical Director: David Doe MD Urea nitrogen 13 mg/dL Normal 10-20 [facility] Comment on above: Performed By: #### 1 37912, 8758676, 650569, 346892, 206285, 670930 ####[facility] [address]ocah[address] [place] [address] Medical Director: David Doe MD Glucose mass conc 86 mg/dL Normal 72-100 [facility] Comment on above: Result Comment: Mariposa puncture should occur prior to sulfasalazine administration due to the potential for falsely depressed results. Venipuncture should occur prior to sulfapyridine administration due to the potential falsely elevated results.Baseline assay values before administration of sulfasalazine and sulfapyridine therapy would not be affected. Performed By: #### 1 63860, 7571837, 832959, 206564, 942853, 909698 ####[facility] [address]oxuj[address] [place] [address] Medical Director: David Doe MD Albumin 3.4 g/dL Normal 3.4-5.0 [facility] Comment on above: Performed By: #### 1 30230, 0511268, 993741, 172449, 368460, 784669 ####[facility] [address]pnfrvvb43089 [place] [address] Medical Director: David Doe MD CO2 19.0 mmol/L Low 21.0-32.0 [facility] Comment on above: Performed By: #### 1 23477, 9636475, 039990, 488137, 283020, 490910 ####[facility] [address]lvdpi[address] [place] [address] Medical Director: David Doe MD Calcium 9.0 mg/dL Normal 8.5-10.5 [facility] Comment on above: Performed By: #### 1 59724, 6422310, 594505, 061800, 671183, 981884 ####[facility] Qqselfnn80964 [place] [address] Medical Director: David Doe MD Potassium molar conc 3.7 mmol/L Normal 3.5-5.1 [facility] Comment on above: Performed By: #### 1 77237, 1016807, 586324, 036848, 570224, 779119 ####[facility] Sfspwnmp20748 [place] [address] Medical Director: David Doe MD Sodium 139 mmol/L Normal 135-145 [facility] Comment on above: Performed By: #### 1 64208, 0568949, 868496, 848515, 507441, 947041 ####[facility] Xebgruuu99173 [place] [address] Medical Director: David Doe MD Chloride 108 mmol/L Normal 100-109 [facility] Comment on above: Performed By: #### 1 69543, 6177773, 838528, 016021, 659238, 115853 ####[facility] Munhhjen41392 [place] [address] Medical Director: David Doe MD CT LOWER [...] apparent fracture or dislocation involving the rightfoot.Technologist: ANALYictated By: Damir SMITH MD By: Damir SMITH MD Out: 01/04/17 12:59:57 Normal [facility] ED Physician Reporton 2016 ED Physician [...] fracture or dislocation involving the rightfoot.Signature LineTechnologist: WCLDictated By: JEREMIAS SMITH MDSigned By: JEREMIAS SMITH [...] Plan Diagnosis Crush injury of right foot ([id number] S97.81XA, Working, Medical) Plan Condition: Stable. Disposition: ED Discharge to Home was placed.(01/04/2017 13:39:31 EDT, Constant Order). Prescriptions: Launch prescriptions Pharmacy:Percocet 5/325 ([id number]) oral tablet (Prescribe): 1 tabs, ORAL, [id number], PRN: for pain, 24 tabs, 0 Refill(s)doxycycline hyclate 100 mg oral tablet (Prescribe): 100 mg = 1 tabs, ORAL, BID, for 10 days, 20 tabs, 0 Refill(s). Patient was given the following educational materials: Cryotherapy, Viea-xo-Adyu, Compartment Syndrome of the Foot, Compartment Syndrome of the Foot, Cryotherapy, Ydkz-kn-Xxgy. Follow up with: 837 NO FAMILY PHYSICIAN Within 3 to 5 days; [...] by: Selene GALVAN MD 01/04/2017 14:19 Normal [facility] ED Progress Noteon 7 ED Progress [...] medicatedsig other at bedsidepodiatry coming to see [id number] ASSUMED CARE OF PT, REPORT RECEIVED FROM [...] a little dizzy after trying crutches. Normal [facility] HCGon 01-04-2017 HCG, Qual <1.0 Normal [facility] Comment on above: Result Comment: 0 - 3 Negative3 - 50 Inconclusive>50 Positive Performed By: #### 1 14609, 9440097, 766738, 304185, 196847, 043695 ####[facility] [address]fxljcn24[address] [place] [address] Medical Director: David Doe MD HEMOon 01-04-2017 DIFF? No Normal [facility] Comment on above: Performed By: #### 1 08819, 3240760, 708555, 530855, 915685, 336917 ####[facility] [address]imsw[address] [place], [place] [address] Medical Director: David Doe MD Erythrocyte distribution width Auto Ratio (RBC) 13.3 % Normal 11.5-14.5 [facility] Comment on above: Performed By: #### 1 64541, 2649643, 140595, 541666, 124541, 822614 ####[facility] [address]xssvkfv92433 [place] [address] Medical Director: David Doe MD Erythrocytes (RBC) 4.80 x10 Normal 4.20-5.40 [facility] Comment on above: Result Comment: Note : RBC morphology is normal unless otherwise stated. Evaluation performed only if differential is requested. Performed By: #### 1 69913, 0142391, 407339, 163705, 366889, 353475 ####[facility] [address]zox[address]hes[address]38 [place], [place] [address]) [phone] Director: David Doe MD Hematocrit (HCT) 39.0 % Normal 36.0-46.0 [facility] Comment on above: Performed By: #### 1 81348, 3107492, 738141, 385696, 493141, 881261 ####[facility] Jdjqhpty26486 [place], [place] [address]) [phone] Director: David Doe MD Hemoglobin mass conc (Bld) 13.1 g/dL Normal 12.0-16.0 [facility] Comment on above: Performed By: #### 1 99699, 7867955, 251662, 819021, 248734, 713784 ####[facility] [address]lckqbh78204 [place] [address] Medical Director: David Doe MD MCH 27.3 pg Normal 27.0-34.0 [facility] Comment on above: Performed By: #### 1 35764, 6922077, 021429, 587789, 271115, 803404 ####[facility] [address]sbofeac60[address] [place], [place] [address]) [phone] Director: David Doe MD MCHC mass conc (RBC) 33.6 g/dL Normal 32.0-37.0 [facility] Comment on above: Performed By: #### 1 97491, 7113505, 864296, 689555, 863352, 212124 ####[facility] [address]zfecrc95[address] [place] [address] Medical Director: David Doe MD MCV 81.3 fL Normal 80.0-100.0 [facility] Comment on above: Performed By: #### 1 92390, 5236326, 434126, 127839, 207224, 177739 ####[facility] [address]ujcilaw43531 [place] [address] Medical Director: David Doe MD Nucleated RBC% 0 /100WC Normal [facility] Comment on above: Performed By: #### 1 47373, 7649588, 285693, 636564, 485820, 491982 ####[facility] Xyjkwjbf19[address] [place] [address] Medical Director: David Doe MD Platelet mean volume (PMV) 9.4 fL Normal 7.4-10.4 [facility] Comment on above: Performed By: #### 1 57763, 5445753, 439078, 431915, 181296, 865798 ####[facility] [address]ghyviyg71460 [place] [address] Medical Director: David Doe MD Platelets 238 x1000 Normal 150-450 [facility] Comment on above: Performed By: #### 1 48739, 5249080, 710039, 647293, 334628, 076525 ####[facility] [address]ypzv[address] [place] [address] Medical Director: David Doe MD WBC (Leukocytes) 9.6 10*3/uL Normal [facility] Comment on above: Performed By: #### 1 72424, 7057058, 158863, 297620, 358097, 048534 ####[facility] [address]idcfyph42974 [place] [address] Medical Director: David Doe MD WBC (Leukocytes) 9.6 x10 Normal 4.5-11.0 [facility] Comment on above: Performed By: #### 1 77762, 5717867, 347350, 816445, 352064, 858758 ####[facility] [address]mhkjcua04909 [place] [address] Medical Director: David Doe MD PT INRon 01-04-2017 Protime Median 11.1 Second(s) Normal [facility] Comment on above: Result Comment: VERI FIED by Discern Expert. Performed By: #### 1 64618, 6294799, 051654, 125728, 160058, 791229 ####[facility] Rawxigdl77279 [place], [place] [address]) [phone] Director: David Doe MD INR Coag RelTime (PPP) 1.0 {INR} Normal [facility] Comment on above: Result Comment: Norm al reference range for INR on patients not on anticoagulant therapy: 0.9-1.1. General therapeutic range for patients on anticoagulant therapy: 2.0-3.5. Performed By: #### 1 17922, 5496655, 479323, 853344, 859133, 910105 ####[facility] [address]jlww93615 [place] [address] Medical Director: David Doe MD Protime Patient 11.3 Second(s) Normal 9.8-12.7 [facility] Comment on above: Performed By: #### 1 61009, 4406384, 677671, 952240, 973406, 024966 ####[facility] [address]cb[address]16[address] [place] [address] Medical Director: David Doe MD XR FOOT [...] fracture or joint dislocation.Technologist: TANA ESPINOZADictated By: Jose Alberto AGUILAR MD By: Jose Alberto AGUILAR MD Out: 01/04/17 11:49:07 Normal [facility] Vital Signs Date Time Vital Sign Value Performing Clinician Facility 07-15-2023 11:50-0500 Body mass index (BMI) [Ratio] 36.65 kg/m2 [facility] Work Phone: [facility] 07-15-2023 11:50-0500 Body weight 106.14 kg [facility] Work Phone: [facility] 12-04-2021 10:03-0400 Body height 173.35 cm [email or web address] 12-04-2021 10:03-0400 Body mass index (BMI) [Ratio] 35.22 kg/m2 [facility] 12-04-2021 10:03-0400 Body surface area Derived from formula 2.26 m2 [facility] 12-04-2021 10:03-0400 Body weight 105.83 kg [facility] 12-04-2021 10:03-0400 Diastolic blood pressure 68 mm[Hg] [facility] 12-04-2021 10:03-0400 Heart rate 68 /min [facility] 12-04-2021 10:03-0400 Systolic blood pressure 116 mm[Hg] [facility] 05-18-2021 01:15-0400 Diastolic blood pressure 71 mm[Hg] Donny Andes DO Work Phone: [facility] Work Phone: 10-15-2020 01:15-0400 SaO2% (BldA) [Mass fraction] 94 % Donny Andes DO Work Phone: [facility] Work Phone: 10-15-2020 01:15-0400 Systolic blood pressure 117 mm[Hg] Donny Andes DO Work Phone: [facility] Work Phone: 10-14-2020 23:18-0400 Body temperature 97.59 [degF] Donny Andes DO Work Phone: [employer] Work Phone: 10-14-2020 23:18-0400 Heart rate 98 /min Donny Andes DO Work Phone: [employer] Work Phone: 10-14-2020 23:18-0400 Respiratory rate 18 /min Donny Andes DO Work Phone: [employer] Work Phone: 09-23-2020 08:31-0400 Body height 172.72 cm Miguel Holley bulletn. Work Phone: [facility] Work Phone: 09-23-2020 08:31-0400 Body mass index (BMI) [Ratio] 40.9 kg/m2 Miguel Holley bulletn. Work Phone: [facility] Work Phone: 09-23-2020 08:31-0400 Body surface area Derived from formula 2.32 m2 Miguel Holley bulletn. Work Phone: [facility] Work Phone: 09-23-2020 08:31-0400 Body temperature 964 [degF] Miguel Holley CNP Work Phone: [facility] Work Phone: 09-23-2020 08:31-0400 Body weight 122.02 kg Miguel Holley CNP Work Phone: [facility] Work Phone: 09-23-2020 08:31-0400 Diastolic blood pressure 80 mm[Hg] Miguel Holley CNP Work Phone: [facility] Work Phone: 09-23-2020 08:31-0400 Heart rate 80 /min Miguel Holley CNP Work Phone: [facility] Work Phone: 09-23-2020 08:31-0400 Respiratory rate 18 /min Miguel Holley CNP Work Phone: [facility] Work Phone: 09-23-2020 08:31-0400 SaO2% (BldA) [Mass fraction] 98 % Miguel Holley CNP Work Phone: [facility] Work Phone: 09-23-2020 08:31-0400 Systolic blood pressure 126 mm[Hg] Miguel Holley CNP Work Phone: [facility] Work Phone: 04-08-2020 16:25-0500 Respiratory Rate 16 /min Miguel Holley [facility] [place] 04-08-2020 16:20-0500 Pulse (Heart Rate) 86 /min Miguel Leydi [facility], [place] 04-08-2020 16:20-0500 Pulse Oximetry 98 % Miguel Leydi [facility] , [place] 04-08-2020 16:00-0500 BP Diastolic 66 mm[Hg] Miguel Leydi [facility] , [place] 04-08-2020 16:00-0500 BP Systolic 121 mm[Hg] [facility] [place] [facility] [place] 04-08-2020 13:23-0500 Body Temperature 98.4 [degF] Miguel Leydi [facility] [place] 03-19-2020 19:09-0400 BMI (Body Mass Index) 37.3 kg/m2 [facility] Work Phone: 03-19-2020 19:09-0400 Body weight 111.13 kg [facility] Work Phone: 03-19-2020 19:09-0400 BSA (Body Surface Area) 2.23 m2 [facility] Work Phone: 03-19-2020 19:09-0400 Height 172.72 cm [facility] Work Phone: 03-05-2020 08:30-0400 BMI (Body Mass Index) 37.3 kg/m2 [facility] Work Phone: 03-05-2020 08:30-0400 Body Temperature 95.4 [degF] [facility] Work Phone: 03-05-2020 08:30-0400 Body weight 111.13 kg [facility] Work Phone: 03-05-2020 08:30-0400 BP Diastolic 80 mm[Hg] [facility] Work Phone: 03-05-2020 08:30-0400 BP Systolic 120 mm[Hg] [facility] Work Phone: 03-05-2020 08:30-0400 BSA (Body Surface Area) 2.23 m2 [facility] Work Phone: 03-05-2020 08:30-0400 Height 172.72 cm [facility] Work Phone: 03-05-2020 08:30-0400 Pulse (Heart Rate) 74 /min [facility] Work Phone: 03-05-2020 08:30-0400 Pulse Oximetry 99 % [facility] Work Phone: 03-05-2020 08:30-0400 Respiratory Rate 18 /min [facility] Work Phone: 03-05-2020 08:30-0400 SaO2% (BldA) [Mass fraction] 99 % [facility] Work Phone: [facility] Work Phone: 12-05-2019 08:37-0400 BMI (Body Mass Index) 35.4 kg/m2 [facility] Work Phone: 12-05-2019 08:37-0400 Body Temperature 98.8 [degF] [facility] Work Phone: 12-05-2019 08:37-0400 Body weight 105.69 kg [facility] Work Phone: 12-05-2019 08:37-0400 BP Diastolic 72 mm[Hg] [facility] Work Phone: 12-05-2019 08:37-0400 BP Systolic 116 mm[Hg] [facility] Work Phone: 12-05-2019 08:37-0400 BSA (Body Surface Area) 2.18 m2 [facility] Work Phone: 12-05-2019 08:37-0400 Flow Rate 0 L/min [facility] Work Phone: 12-05-2019 08:37-0400 Height 172.72 cm [facility] Work Phone: 12-05-2019 08:37-0400 Inhaled Oxygen Concentration 21 % [facility] Work Phone: 12-05-2019 08:37-0400 Pulse (Heart Rate) 81 /min [facility] Work Phone: 12-05-2019 08:37-0400 Pulse Oximetry 98 % [facility] Work Phone: 12-05-2019 08:37-0400 Respiratory Rate 18 /min [facility] Work Phone: 12-05-2019 08:37-0400 SaO2% (BldA) [Mass fraction] 98 % [facility] Work Phone: [facility] Work Phone: 11-06-2019 09:02-0400 BMI (Body Mass Index) 36.2 kg/m2 [facility] Work Phone: 11-06-2019 09:02-0400 Body Temperature 95.8 [degF] [facility] Work Phone: 11-06-2019 09:02-0400 Body weight 107.96 kg [facility] Work Phone: 11-06-2019 09:02-0400 BP Diastolic 80 mm[Hg] [facility] Work Phone: 11-06-2019 09:02-0400 BP Systolic 110 mm[Hg] [facility] Work Phone: 11-06-2019 09:02-0400 BSA (Body Surface Area) 2.2 m2 [facility] Work Phone: 11-06-2019 09:02-0400 Height 172.72 cm [facility] Work Phone: 11-06-2019 09:02-0400 Pulse (Heart Rate) 94 /min [facility] Work Phone: 11-06-2019 09:02-0400 Pulse Oximetry 98 % [facility] Work Phone: 11-06-2019 09:02-0400 Respiratory Rate 18 /min [facility] Work Phone: 11-06-2019 09:02-0400 SaO2% (BldA) [Mass fraction] 98 % Miguel Leydi CNP Work Phone: [facility] Work Phone: 10-12-2019 09:53-0400 BMI (Body Mass Index) 38.2 kg/m2 [facility] Work Phone: 10-12-2019 09:53-0400 Body Temperature 98.7 [degF] [facility] Work Phone: 10-12-2019 09:53-0400 Body weight 113.85 kg [facility] Work Phone: 10-12-2019 09:53-0400 BP Diastolic 82 mm[Hg] [facility] Work Phone: 10-12-2019 09:53-0400 BP Systolic 122 mm[Hg] [facility] Work Phone: 10-12-2019 09:53-0400 BSA (Body Surface Area) 2.25 m2 [facility] Work Phone: 10-12-2019 09:53-0400 Flow Rate 0 L/min [facility] Work Phone: 10-12-2019 09:53-0400 Height 172.72 cm [facility] Work Phone: 10-12-2019 09:53-0400 Inhaled Oxygen Concentration 21 % [facility] Work Phone: 10-12-2019 09:53-0400 Pulse (Heart Rate) 97 /min [facility] Work Phone: 10-12-2019 09:53-0400 Pulse Oximetry 98 % [facility] Work Phone: 10-12-2019 09:53-0400 Respiratory Rate 18 /min [facility] Work Phone: 10-12-2019 09:53-0400 SaO2% (BldA) [Mass fraction] 98 % [facility] Work Phone: [facility] Work Phone: 09-14-2019 08:35-0400 BMI (Body Mass Index) 37.7 kg/m2 [facility] Work Phone: 09-14-2019 08:35-0400 Body Temperature 96.6 [degF] [facility] Work Phone: 09-14-2019 08:35-0400 Body weight 112.49 kg [facility] Work Phone: 09-14-2019 08:35-0400 BP Diastolic 80 mm[Hg] [facility] Work Phone: 09-14-2019 08:35-0400 BP Systolic 130 mm[Hg] [facility] Work Phone: 09-14-2019 08:35-0400 BSA (Body Surface Area) 2.24 m2 [facility] Work Phone: 09-14-2019 08:35-0400 Height 172.72 cm [facility] Work Phone: 09-14-2019 08:35-0400 Pulse (Heart Rate) 81 /min [facility] Work Phone: 09-14-2019 08:35-0400 Pulse Oximetry 98 % [facility] Work Phone: 09-14-2019 08:35-0400 Respiratory Rate 18 /min [facility] Work Phone: 09-05-2019 10:26-0400 BMI (Body Mass Index) 37.3 kg/m2 [facility] Work Phone: 09-05-2019 10:26-0400 Body weight 111.13 kg [facility] Work Phone: 09-05-2019 10:26-0400 BSA (Body Surface Area) 2.23 m2 [facility] Work Phone: 09-05-2019 10:26-0400 Height 172.72 cm [facility] Work Phone: 08-17-2019 08:29-0400 BMI (Body Mass Index) 37.3 kg/m2 [facility] Work Phone: 08-17-2019 08:29-0400 Body Temperature 97.9 [degF] [facility] Work Phone: 08-17-2019 08:29-0400 Body weight 111.13 kg [facility] Work Phone: 08-17-2019 08:29-0400 BP Diastolic 80 mm[Hg] [facility] Work Phone: 08-17-2019 08:29-0400 BP Systolic 120 mm[Hg] [facility] Work Phone: 08-17-2019 08:29-0400 BSA (Body Surface Area) 2.23 m2 [facility] Work Phone: 08-17-2019 08:29-0400 Height 172.72 cm [facility] Work Phone: 08-17-2019 08:29-0400 Pulse (Heart Rate) 68 /min [facility] Work Phone: 08-17-2019 08:29-0400 Pulse Oximetry 98 % [facility] Work Phone: 08-17-2019 08:29-0400 Respiratory Rate 18 /min [facility] Work Phone: 07-20-2019 08:36-0500 BMI (Body Mass Index) 39 kg/m2 [facility] Work Phone: 07-20-2019 08:36-0500 Body Temperature 98.4 [degF] [facility] Work Phone: 07-20-2019 08:36-0500 Body weight 116.39 kg [facility] Work Phone: 07-20-2019 08:36-0500 BP Diastolic 80 mm[Hg] [facility] Work Phone: 07-20-2019 08:36-0500 BP Systolic 120 mm[Hg] [facility] Work Phone: 07-20-2019 08:36-0500 BSA (Body Surface Area) 2.27 m2 [facility] Work Phone: 07-20-2019 08:36-0500 Height 172.72 cm [facility] Work Phone: 07-20-2019 08:36-0500 Pulse (Heart Rate) 87 /min [facility] Work Phone: 07-20-2019 08:36-0500 Pulse Oximetry 97 % [facility] Work Phone: 07-20-2019 08:36-0500 Respiratory Rate 18 /min [facility] Work Phone: 07-06-2019 08:43-0500 BMI (Body Mass Index) 39.7 kg/m2 [facility] Work Phone: 07-06-2019 08:43-0500 Body Temperature 97.3 [degF] [facility] Work Phone: 07-06-2019 08:43-0500 Body weight 118.39 kg [facility] Work Phone: 07-06-2019 08:43-0500 BP Diastolic 82 mm[Hg] [facility] Work Phone: 07-06-2019 08:43-0500 BP Systolic 122 mm[Hg] [facility] Work Phone: 07-06-2019 08:43-0500 BSA (Body Surface Area) 2.29 m2 [facility] Work Phone: 07-06-2019 08:43-0500 Height 172.72 cm [facility] Work Phone: 07-06-2019 08:43-0500 Pulse (Heart Rate) 78 /min [facility] Work Phone: 07-06-2019 08:43-0500 Pulse Oximetry 98 % [facility] Work Phone: 07-06-2019 08:43-0500 Respiratory Rate 18 /min [facility] Work Phone: Encounters Encounter Date Encounter Type Care Provider Facility Start: 09-16-2023 End: 09-16-2023 ambulatory ADITYA CERVANTES Not Available Start: 08-19-2023 End: 08-19-2023 ambulatory LATASHA CARLTON Not Available Start: 07-15-2023 End: 07-15-2023 ambulatory ADITYA CERVANTES Not Available Start: 07-15-2023 End: 07-15-2023 flow sheet Aditya Cervantes DO Work Phone: [facility] Comment on above: Second trimester pre gnancy Start: 06-11-2023 End: 06-11-2023 ambulatory ADITYA GUEVARAO Not Available Start: 05-12-2023 End: 05-13-2023 [facility] Start: 05-07-2023 End: 05-08-2023 ambulatory [facility] Start: 05-05-2023 End: 05-06-2023 ambulatory [facility] Start: 04-14-2023 End: 04-14-2023 ambulatory ADITYA CERVANTES Not Available Start: 03-24-2023 End: 03-27-2023 [facility] Start: 01-20-2023 End: 01-20-2023 ambulatory [facility] Start: 01-01-2023 End: 01-02-2023 ambulatory [facility] Start: 01-01-2023 Encounter for gynecological examination (general) (routine) without abnormal findings MIGUEL HOLLEY [facility] Start: 01-01-2023 End: 01-01-2023 Patient encounter procedure Miguel Stewart CNP Work Phone: [facility] Start: 01-01-2023 End: 01-01-2023 Subsequent hospital visit by physician Miguel Stewart CNP Work Phone: [facility] Comment on above: Women's annual routi ne gynecological examination Start: 12-16-2021 End: 12-16-2021 Subsequent hospital visit by physician Miguel Stewart CNP Work Phone: [facility] Start: 12-04-2021 Split Fahad Jenkins rne Other [facility] Office Start: 10-02-2021 End: 10-02-2021 Patient encounter procedure Miguel Stewart CNP Work Phone: [facility] Start: 10-02-2021 End: 10-02-2021 Subsequent hospital visit by physician Miguel Leydi AIR TRAFFIC CONTROL MANAGER - MAGNETIC TESTING TECHNICIAN Work Phone: [facility] Laboratory Comment on above: Women's annual routi ne gynecological examination Start: 10-14-2020 End: 10-15-2020 Emergency department patient visit Donny Hatfield DO Work Phone: [facility] ED Comment on above: Nausea vomiting and diarrhea (Primary Dx); Generalized abdominal pain Start: 09-23-2020 End: 09-24-2020 ambulatory MIGUEL HOLLEY [facility] Start: 09-23-2020 End: 09-23-2020 Subsequent hospital visit by physician Miguel Holley AIR TRAFFIC CONTROL MANAGER - MAGNETIC TESTING TECHNICIAN Work Phone: [facility] Start: 09-23-2020 End: 09-23-2020 General Jammie Javier RODAS Work Phone: [facility] Work Phone: Start: 09-23-2020 End: 09-23-2020 Adult health examination Miguel Holley CNP Work Phone: [facility] Work Phone: Start: 09-23-2020 End: 09-23-2020 FQHC visit, estab pt Miguel Holley CNP Work Phone: [facility] Work Phone: Start: 04-08-2020 End: 04-08-2020 Emergency department patient visit [facility] ED Comment on above: COVID-19 (Primary Dx ); Fatty liver Start: 03-19-2020 End: 03-19-2020 Telemedicine consultation with patient Miguel Holley Work Phone: [facility] Work Phone: Start: 03-05-2020 End: 03-05-2020 Established patient Miguel Holley Work Phone: [facility] Work Phone: Start: 12-05-2019 End: 12-05-2019 Established patient Poly Franco Work Phone: [facility] Work Phone: Start: 11-06-2019 End: 11-06-2019 Established patient Poly Franco Work Phone: [facility] Work Phone: Start: 10-12-2019 End: 10-12-2019 Patient encounter procedure Paty Goldsmith Work Phone: [facility] Work Phone: Start: 10-12-2019 End: 10-12-2019 Established patient Poly Franco Work Phone: [facility] Work Phone: Start: 09-14-2019 End: 09-14-2019 Established patient Poly Franco Work Phone: [facility] Work Phone: Start: 09-11-2019 End: 09-11-2019 Telemedicine consultation with patient Poly Franco Work Phone: [facility] Work Phone: Start: 09-05-2019 End: 09-05-2019 Telemedicine consultation with patient Poly Franco Work Phone: [facility] Work Phone: Start: 08-17-2019 End: 09-11-2019 Telemedicine consultation with patient Poly Franco Work Phone: [facility] Work Phone: Start: 08-17-2019 End: 08-17-2019 Established patient Miguel Holley Work Phone: [facility] Work Phone: Start: 07-20-2019 End: 07-20-2019 Established patient Miguel Holley Work Phone: [facility] Work Phone: Start: 07-06-2019 End: 07-06-2019 Subsequent hospital visit by physician Jackson FORMAN [facility] Start: 07-06-2019 End: 07-06-2019 Established patient Anh Virk Work Phone: [facility] Work Phone: Start: 07-06-2019 End: 07-06-2019 New patient Allyson Floyd Work Phone: [facility] Work Phone: Start: 02-02-2019 End: 02-04-2019 Subsequent hospital visit by physician [facility] Ultrasound Room [facility] Ultrasound Comment on above: Encounter for intrau terine device placement Start: 08-21-2018 End: 08-23-2018 Patient encounter procedure [facility] Start: 01-04-2017 End: 01-04-2017 Emergency department patient visit [address] [facility] PH[facility]IAN Facility:[id number] Procedures Date Procedure Procedure Detail Performing Clinician Start: 07-15-2023 Urnls dip stick/tabl et rgnt non-auto w/o micrscp Aditya Billy DO Work Phone: Start: 12-16-2021 Assay of blood/uric acid Dedrick KULKARNI-C Work Phone: Start: 12-16-2021 C-reactive protein Robel Wood PA-C Work Phone: Start: 12-04-2021 Nerve conduction heaven dies 9-10 studies Shona Lucio Start: 10-02-2021 Microscopic observat ion [Identifier] in Cervix by Cyto stain Miguel Holley AIR TRAFFIC CONTROL MANAGER - MAGNETIC TESTING TECHNICIAN Work Phone: Start: 10-15-2020 Urinalysis microscop ic only Donny Andes DO Work Phone: Start: 10-15-2020 Urnls dip stick/tabl et rgnt auto w/o microscopy Donny Andes DO Work Phone: Start: 10-15-2020 Ct abdomen & pelvis w/contrast material Donny Andes DO Work Phone: Start: 10-15-2020 Assay of lactate Donny Andes DO Work Phone: Start: 10-15-2020 BASIC METABOLIC PANE L W/ REFLEX TO MG FOR LOW K Donny Andes DO Work Phone: Start: 10-15-2020 Hepatic function panel Donny Hatfield DO Work Phone: Start: 09-23-2020 Most recent diastoli c blood pressure < 80 mm hg Miguel Holley MAGNETIC TESTING TECHNICIAN Work Phone: Start: 09-23-2020 Most recent systolic blood pressure <130 mm hg Miguel Holley MAGNETIC TESTING TECHNICIAN Work Phone: Start: 09-23-2020 Pt-focused hlth risk assmt score doc stnd instrm Miguel Holley MAGNETIC TESTING TECHNICIAN Work Phone: Start: 09-23-2020 Antibody hiv-1&hiv-2 single result Miguel Holley CNP Work Phone: Start: 09-23-2020 Comprehensive metabo lic panel Miguel Holley AIR TRAFFIC CONTROL MANAGER - MAGNETIC TESTING TECHNICIAN Work Phone: Start: 04-08-2020 Ct thorax w/contrast material Ninoska Marianne Work Phone: Start: 04-08-2020 [facility] Work Phone: Start: 04-08-2020 Urine test visual color cmprsn meths Ninoska Marianne Work Phone: Start: 04-08-2020 Assay of troponin quantitative Ninoska Marianne Work Phone: Start: 04-08-2020 Blood count complete automated Ninoska Marianne Work Phone: Start: 04-08-2020 Comprehensive metabo lic panel Ninoska [facility] Work Phone: Start: 04-08-2020 Natriuretic peptide [facility] Marianne Work Phone: Start: 04-08-2020 Prothrombin time Ninoska Marianne Work Phone: Start: 04-08-2020 Thromboplastin time partial plasma/whole blood Ninoska Marianne Work Phone: Start: 12-05-2019 Diast bp <80 mm hg Poly Franco Work Phone: Start: 12-05-2019 Syst bp lt [address] Franco Work Phone: Start: 11-06-2019 Diast bp 80-[address] ra Salvador Work Phone: Start: 11-06-2019 Syst bp lt 130 mm hg Ka ra Salvador Work Phone: Start: 10-12-2019 Diast bp 80-[address] Franco Work Phone: Start: 10-12-2019 Syst bp lt 130 mm hg Ka ra Salvador Work Phone: Start: 09-14-2019 Diast bp 80-[address] ra Salvador Work Phone: Start: 09-14-2019 Syst bp ge 130 - 139mm hg Poly Franco Work Phone: Start: 08-17-2019 Diast bp <80 mm hg Humza blair Leydi Work Phone: Start: 08-17-2019 Syst bp lt 130 mm hg nury Leydi Work Phone: Start: 07-06-2019 Hemoglobin glycosyla marty a1c Allyson Floyd Work Phone: Start: 07-06-2019 Psychotherapy w/emely ent 30 minutes Anh Virk Work Phone: Start: 07-06-2019 Assay of free thyroxine Allyson Floyd Work Phone: Start: 07-06-2019 Assay of thyroid stimulating hormone tsh Allyson Floyd Work Phone: Start: 07-06-2019 Assay of triiodothyr onine t3 total tt3 Allyson Floyd Work Phone: Start: 07-06-2019 Blood count complete auto&auto difrntl wbc Allyson Floyd Work Phone: Start: 07-06-2019 Comprehensive metabo lic panel Allyson Floyd Work Phone: Start: 07-06-2019 Lipid panel Allyson Floyd Work Phone: Start: 02-02-2019 transvaginal Dana Akins Work Phone: Start: 02-07-2018 Microscopic observat ion [Identifier] in Cervix by Cyto stain Miguel Holley AIR TRAFFIC CONTROL MANAGER - MAGNETIC TESTING TECHNICIAN Work Phone: NEGATED: Highlighted row has not occurred!Start: 11-06-2019 currently nursing Miguel Holley NEGATED: Highlighted row has not occurred!Start: 11-06-2019 currently Miguel Holley NEGATED: Highlighted row has not occurred!Start: 07-06-2019 reported medical history Miguel Holley Plan of Treatment Date Care Activity Detail Author Start: 10-02-2024 Screening for malign ant neoplasm of cervix Pap smear [facility] Start: 08-19-2023 End: 08-19-2023 Patient encounter procedure 08/19/2023 11:00 AM EDT Routine [facility] [address] [address] Latasha Carlton PA [address], [facility] Start: 08-19-2023 End: 08-19-2023 Professional / ancillary services management 08/19/2023 10:00 AM EDT Ancillary Procedure [facility] [address] [place] [address] [facility] Start: 01-20-2023 End: 01-20-2023 Admission to same day surgery center 01/20/2023 Surgery IP Unit Vickie Nichols MD [address] [place] [address] [place], [place] [id number] HYSTEROSCOPY - IUD REMOVAL [facility] Comment on above: HYSTEROSCOPY - IUD R EMOVAL Start: 01-20-2023 End: 01-20-2023 Hysteroscopy removal impacted foreign body HYSTEROSCOPY Intrauterine contraceptive device threads lost, initial encounter 01/20/2023 11:10 AM EDT [facility] Start: 01-20-2023 Subsequent hospital visit by physician 01/20/2023 Hospital Encounter IP Unit Vickie Nichols MD [address] [place] [address] [facility] Start: 12-29-2022 Influenza vaccination Flu vaccine (# 1) [facility] Start: 04-27-2022 End: 04-27-2022 Patient encounter procedure [facility] Start: 01-29-2022 Influenza vaccination [facility] Start: 02-07-2021 Cervical cancer screen Cervical canc er screen [place] Start: 02-07-2021 Screening for malign ant neoplasm of cervix [facility] Start: 01-29-2021 Influenza vaccination Flu vacc ine (Season Ended) [facility] Work Phone: Start: 09-30-2020 CBC W Auto Different ial panel - Blood [facility] Start: 09-30-2020 Lipid 1996 panel - S stefan or Plasma LIPID PROFILE [facility] Start: 09-23-2020 Psychiatry Health [facility] Work Phone: Comment on above: Note: Please make a referral to: Start: 03-26-2020 SARS-CoV-2, KAILA [facility] Work Phone: Start: 03-19-[address] up Testing [facility] Work Phone: Start: 02-06-2020 Medical Establ ished Patient [facility] Work Phone: Start: 01-30-2020 Influenza vaccination Flu vaccine (# 1) [place], [place] Start: 11-09-2019 Medical Establ ished Patient [facility] Work Phone: Start: 10-11-2019 Medical Establ ished Patient [facility] Work Phone: Start: 09-14-2019 Medical Establ ished Patient [facility] Work Phone: Start: 08-17-2019 Medical Establ ished Patient [facility] Work Phone: Start: 07-20-2019 Medical Establ ished Patient [facility] Work Phone: Start: 07-13-2019 Lipid 1996 panel [facility] Work Phone: Start: 02-14-2019 End: 02-14-2019 Office Visit 02/14/2019 Office Visit Obstetrics and Gynecology FrankPilar AIR TRAFFIC CONTROL MANAGER - CN [address], [place] [id number] [facility] SEWING MACHINE OPERATOR Start: 02-07-2019 Chlamydia screen Chlamydia screen [place], [place] Start: 02-07-2019 Screening for Chlamy valentino trachomatis Chlamydia screen [facility] Start: 01-29-2019 Influenza vaccination Flu vaccine (# 1) [place], [place] Start: 10-29-2017 DTaP/Tdap/Td vaccine (2 - Td or Tdap) DTaP/Tdap/Td vaccine (2 - Td or Tdap) [facility] Start: 10-29-2017 DTaP/Tdap/Td vaccine (2 - Td) DTaP/Tdap/Td vaccine (2 - Td) [place], [place] Start: 2014 Hepatitis C screening Hepatitis C sc reen [facility] Start: 2012 COVID-19 Vaccine (1) COVID-19 Vaccin e (1) [facility] Work Phone: Start: 2011 HIV screen HIV screen [place], [place] Start: 2011 HIV screening HIV screen [facility] Start: 2011 HPV vaccine (1 - Fem shiela 3-dose series) HPV vaccine (1 - Female 3-dose series) [place], [place] Start: 2009 Varicella Vaccine (1 of 2 - 13+ 2-dose series) Varicella Vaccine (1 of 2 - 13+ 2-dose series) [place], [place] Start: 2008 COVID-19 Vaccine (1) COVID-19 Vaccin e (1) [facility] [facility] Work Phone: Start: 2008 Depression Screen Depression Screen [facility] Start: 2007 HPV vaccine (1 - 2-d ose series) HPV vaccine (1 - 2-dose series) [employer] Start: 2007 HPV vaccine (1 - Fem shiela 2-dose series) HPV vaccine (1 - Female 2-dose series) [employer] Phone: Start: 2001 COVID-19 Vaccine (1) COVID-19 Vaccin e (1) [employer] Start: 1997 Varicella vaccine (1 of 2 - 2-dose childhood series) Varicella vaccine (1 of 2 - 2-dose childhood series) [employer] Start: 1996 COVID-19 Vaccine (#1) COVID-19 Vacci ne (#1) [employer] Start: 1996 Hepatitis C screening Hepatitis C sc reen [employer] Phone: End: 12-16-2021 GLENNY Screen with Reflex [employer] Phone: Comment on above: Once for 1 Occurrenc es starting 12/16/2021 until 12/16/2021 End: 10-02-2021 Cytopathology procedure, preparation of smear, genital source [facility] Lab Routine Women's annual routine gynecological examination 1 Occurrences starting 10/02/2021 until 10/02/2021 [employer] Phone: Comment on above: 1 Occurrences starti ng 10/02/2021 until 10/02/2021 End: 01-01-2023 Cytopathology procedure, preparation of smear, genital source PAP SMEAR Lab Routine Women's annual routine gynecological examination 1 Occurrences starting 01/01/2023 until 01/01/2023 [employer] Phone: Comment on above: 1 Occurrences starti ng 01/01/2023 until 01/01/2023 End: 12-16-2021 HLA-B27 Antigen [employer] Phone: Comment on above: Once for 1 Occurrenc es starting 12/16/2021 until 12/16/2021 End: 07-06-2019 Insulin, free Insulin, free Lab Routine Once for 1 Occurrences starting 07/06/2019 until 07/06/2019 [employer] Work Phone: Comment on above: Once for 1 Occurrenc es starting 07/06/2019 until 07/06/2019 Insulin, free Insulin, free La b Routine 07/06/2019 9:31 AM EST [employer] Work Phone: End: 12-16-2021 [facility] Work Phone: Comment on above: Once for 1 Occurrenc es starting 12/16/2021 until 12/16/2021 Immunizations Immunization Date Immunization Notes Care Provider Em de la cruz 10-30-2007 tetanus toxoid, redu katelyn diphtheria toxoid, and acellular pertussis vaccine, adsorbed [facility] [employer] Payers Date Payer Category Payer Unknown [facility] [employer] [id number] 2023-Present [address] [address] [place] [address] [id number] 2023 Unknown [id number] 2022 Unknown [id number] 2018 Unknown [id number] 2016 Unknown [employer] [address] xxxxxxxxxxxx 2016-Present [phone] [address] [place] [address] xxxxxxxxxxxx [id number] 1996 Unknown [id number] 1996 Unknown [id number] 1996 Unknown [id number] 1996 Unknown [id number] 1996 Unknown [id number] 1996 Unknown [id number] [id number] 1996 Unknown [id number] [id number] 1996 Unknown [id number] [id number] 1996 Unknown [id number] [id number] 9 1996 Unknown [id number] [id number] 9 1996 Unknown [id number] [id number] 9 1996 Unknown [id number] [id number] 9 1996 Unknown [id number] [id number] 9 Unknown [id number] Social History Date Type Detail Facility Assertion [facility] Work Phone: Assertion Emotional stress (finding) [facility] Work Phone: Tobacco smoking status Unknown if ever smoked [facility] Work Phone: Assertion Sexually active (finding) [facility] Work Phone: Assertion Gender identity finding (finding) [facility] Work Phone: Assertion Finding of sexua l orientation (finding) [facility] Work Phone: Start: 10-13-2013 End: 02-07-2018 Tobacco smoking status NHIS Never smoker [employer] [facility] Start: 02-07-2018 End: 01-01-2023 Alcohol intake Current drinker of alcohol (finding) [employer] Work Phone: Start: 12-12-2015 Alcohol Comment occassionally [employer] [facility] Start: 1996 Sex Assigned At Not on file [employer] [facility] Start: 10-13-2013 End: 04-08-2020 Tobacco use and exposure Never used [employer] [facility] Exposure to SARS-CoV-2 (event) Not sure [employer] [facility] Start: 02-07-2018 Alcohol intake Yes [facility] [employer] [facility] Assertion Family illness (situation) [facility] Work Phone: Assertion Single person (finding) [facility] Work Phone: Start: *Tobacco [facility] Start: 04-15-2023 [facility] NEGATED: Highlighted row Assertion Exposure to pollution (event) [facility] Work Phone: NEGATED: Highlighted row Assertion Tobacco user (finding) [facility] Work Phone: NEGATED: Highlighted row Assertion Current drinker of alcohol (finding) [facility] Work Phone: NEGATED: Highlighted row Assertion Finding relating to drug misuse behavior (finding) [facility] Work Phone: Mental Status Date Assessment Result Facility Cognitive function Cognitive fun ctioning was normal Cognitive function finding (finding) [facility] Work Phone: Clinical Notes 11-06-2019 to 07-15-2023 CAYLA Kwok - 07/15/2023 11:30 AM EST Note Date & Type Note Facility 07-15-2023 History of Presen t illness Narrative Reason for Appointment: Patient ID: Estefania Florez is a 28 y.o. female who presents for Routine Visit Patient presents today for Return OB appointment. Current Medications: has a current medication list which includes the following prescription(s): plus/iron. Medical History: Active Ambulatory Problems Diagnosis Date Noted No Active Ambulatory Problems Resolved Ambulatory Problems Diagnosis Date Noted No Resolved Ambulatory Problems No Additional Past Medical History Family History Problem Relation Name Age of Onset Lupus Mother Rheum arthritis Mother Fibromyalgia Mother Diabetes Father Social History Tobacco Use Smoking status: Not on file Smokeless tobacco: Not on file Substance Use Topics Alcohol use: Not on file Drug use: Not on file History reviewed. No pertinent surgical history. Allergies Allergen Reactions Triamcinolone Other and Hives Had to have reconstructive surgery. Dimpling of the skin Review of Systems: Review of Systems Constitutional: Negative. HENT: Negative. Eyes: Negative. Respiratory: Negative. Cardiovascular: Negative. Gastrointestinal: Negative. Musculoskeletal: Negative. Skin: Negative. Neurological: Negative. Psychiatric/Behavioral: Negative. All other systems reviewed and are negative. Hematological: Negative. Endocrine: Negative. Objective Physical Exam Constitutional: Appearance: Normal appearance. She is normal weight. HENT: Head: Normocephalic. Cardiovascular: Rate and Rhythm: Normal rate. Pulses: Normal pulses. Pulmonary: Effort: Pulmonary effort is normal. Breath sounds: Normal breath sounds. Abdominal: Palpations: Abdomen is soft. Musculoskeletal: General: Normal range of motion. Neurological: General: No focal deficit present. Mental Status: She is alert and oriented to person, place, and time. Psychiatric: Mood and Affect: Mood normal. Behavior: Behavior normal. Thought Content: Thought content normal. Judgment: Judgment normal. Vitals and nursing note reviewed. Vitals: Estimated body mass index is 36.65 kg/m as calculated from the following: Height as of 03/24/23: 5' 7 . Weight as of this encounter: 234 lb. BP: Patient's last menstrual period was 04/07/2023. Assessment/Plan Encounter Diagnosis Name Primary? Second trimester Patient presents today for a routine obstetrics appointment. Patient is currently 15w0d with a Estimated Date of Delivery: 01/06/24. Patient presents today for a routine obstetrics appointment. Patient is currently 15w0d . Patient states she is doing well but has complaints of being tired due to current . Patient has verbalizes frequent movement. labor precautions was discussed/given and patient was instructed to perform kick counts three times a day. Follow Up: Patient is to return to office in 4 week for routine OB appointment. Documented by CAYLA Kwok on behalf of: Aditya Cervantes DO documented in this encounter [facility] 09-23-2020 Evaluation note Includes: Assessments for all patient encounters Findings Anxiety disorder NOS BH Telebehavioral H ealth with Jammie RODAS 09/23/2020 Assessment of visit for: screening for human immunodeficiency virus Medical Established Patient with Miguel Holley [facility] 09/23/2020 Diabetes Risk Test Score was three score 09/23/2020 Medical Established Patient with Miguel Holley [facility] 09/23/2020 Morbid obesity Medical Established Patient with Miguel Holley [facility] 09/23/2020 Routine adult history and physical (18-64 yrs) without abnormal findings Medical Established Patient with Miguel Holley [facility] 09/23/2020 Z68.41 - Body mass index [BMI]40.0-44.9, adult Medical Established Patient with Miguel Holley [facility] 09/23/2020 Cough Telemedicine Establi sted Patient with Miguel Holley [facility] 03/19/2020 Exposure to a viral disease Telemedicine Establisted Patient with Miguel Holley [facility] 03/19/2020 Obesity due to excess calories Telemedic ine Establisted Patient with Miguel Holley [facility] 03/19/2020 Z68.37 - Body mass index [BM I] 37.0-37.9, adult Telemedicine Establisted Patient with Miguel Holley [facility] 03/19/2020 Obesity due to excess calories Medical E stablished Patient with Miguel Holley [facility] 03/05/2020 Z68.37 - Body mass index [BM I] 37.0-37.9, adult Medical Established Patient with Miguel Holley [facility] 03/05/2020 Obesity due to excess calories Medical E stablished Patient with Poly Salvador [facility] 12/05/2019 R21 - Rash and other nonspecific skin eruption Medical Established Patient with Poly Salvador [facility] 12/05/2019 Z68.35 - Body mass index (BM I) 35.0-35.9, adult Medical Established Patient with Poly Salvador [facility] 12/05/2019 Obesity due to excess calories Medical E stablished Patient with Poly Salvador [facility] 11/06/2019 Z68.36 - Body mass index (BM I) 36.0-36.9, adult Medical Established Patient with Poly Franco [employer] 11/06/2019 Obesity due to excess calories Medical E stablished Patient with Poly Franco [employer] TECHNIC[employer] 10/12/2019 Z68.38 - Body mass index (BM I) 38.0-38.9, adult Medical Established Patient with Poly Wagonerle [facility] 10/12/2019 L25.5 - Unspecified contact dermatitis due to plants, except food Medical Established Patient with Poly Wagonerle [employer] 09/14/2019 Obesity due to excess calories Medical E stablished Patient with Poly Wagonerle [facility] 09/14/2019 Z68.37 - Body mass index (BM I) 37.0-37.9, adult Medical Established Patient with Poly Franco [facility] 09/14/2019 L25.5 - Unspecified contact dermatitis due to plants, except food Telemedicine with Poly Franco [facility] 09/11/2019 Obesity due to excess calories Telemedic ine with Poly Franco [facility] 09/11/2019 Z68.37 - Body mass index (BM I) 37.0-37.9, [facility] Dermatitis due to contact wi th poison spencer Telemedicine with Poly Franco [facility] 09/05/2019 Obesity due to excess calories Telemedic ine with Poly Franco [facility] 09/05/2019 Z68.37 - Body mass index (BM I) 37.0-37.9, adult Telemedicine with Poly Farnco [facility] 09/05/2019 Obesity due to excess calories Medical E stablished Patient with Miguel Holley [facility] 08/17/2019 Z68.37 - Body mass index (BM I) 37.0-37.9, adult Medical Established Patient with Miguelleigh Anguloen [facility] 08/17/2019 Generalized anxiety disorder BH Establis hed Patient with Anh VIDAL 07/06/2019 Anxiety disorder NOS Medical New Patient with Allyson Everett [employer] TECHNIC[employer] 07/06/2019 Depression Medical New Patient with Allyson Everett [employer] TESTING TECHNICIAN 07/06/2019 Diabetes Risk Test Score was one score Medical New Patient with Allyson Everett [employer]IC TESTING TECHNICIAN 07/06/2019 Idiopathic insomnia Medical New Patient with Allyson Everett MAGNETIC TESTING TECHNICIAN 07/06/2019 Obesity due to excess calories Medical N ew Patient with Allyson Norfolk MAGNETIC TESTING TECHNICIAN 07/06/2019 Z68.39 - Body mass index (BM I) 39.0-39.9 adult Medical New Patient with Allyson Floyd MAGNETIC TESTING TECHNICIAN 07/06/2019 [facility] Work Phone: [phone] 435-855506-08-2020 History general Narrative - Reported Includes: Medical History in patient's chart Description Last Updated Not currently nursing 11/06/2019 Not 11/06/2019 No reported medical history or no signif icant history 07/06/2019 [facility] Work Phone: Evaluation note Includes: Assessments for all patient encounters Findings Encounter Date Assessment of visit for: cristóbal montoya for human immunodeficiency virus Medical Established Patient with Miguel Holley [facility] 09/23/2020 Diabetes Risk Test Score was three score 09/23/2020 Medical Established Patient with Miguel Holley [facility] 09/23/2020 Morbid obesity Medical Established Patient with Miguel Holley [facility] 09/23/2020 Routine adult history and ph ysical (18-64 yrs) without abnormal findings Medical Established Patient with Miguel Holley [facility] 09/23/2020 Z68.41 - Body mass index [BMI]40.0-44.9, adult Medical Established Patient with Miguel Holley [facility] 09/23/2020 Cough Telemedicine Establi sted Patient with Miguel Holley [facility] 03/19/2020 Exposure to a viral disease Telemedicine Establisted Patient with Miguel Holley [facility] 03/19/2020 Obesity due to excess calories Telemedic ine Establisted Patient with Miguel Holley [facility] 03/19/2020 Z68.37 - Body mass index [BM I] 37.0-37.9, adult Telemedicine Establisted Patient with Miguel Holley [facility] 03/19/2020 Obesity due to excess calories Medical E stablished Patient with Miguel Holley [facility] 03/05/2020 Z68.37 - Body mass index [BM I] 37.0-37.9, adult Medical Established Patient with Miguel Holley [facility] 03/05/2020 Obesity due to excess calories Medical E stablished Patient with Poly Salvador [employer]IC TESTING TECHNICIAN 12/05/2019 R21 - Rash and other nonspec ific skin eruption Medical Established Patient with Poly Salvador [facility] 12/05/2019 Z68.35 - Body mass index (BM I) 35.0-35.9, adult Medical Established Patient with Poly Wagonerle [employer]NETIC TESTING TECHNICIAN 12/05/2019 Obesity due to excess calories Medical E stablished Patient with Poly Wagonerle MAG[employer]IC TESTING TECHNICIAN 11/06/2019 Z68.36 - Body mass index (BM I) 36.0-36.9, adult Medical Established Patient with Poly Wagonerle MAGNETIC TESTING TECHNICIAN 11/06/2019 Obesity due to excess calories Medical E stablished Patient with Polykamryn Wagonerle [facility] 10/12/2019 Z68.38 - Body mass index (BM I) 38.0-38.9, adult Medical Established Patient with Poly Salvador [facility] 10/12/2019 L25.5 - Unspecified contact dermatitis due to plants, except food Medical Established Patient with Poly Wagonerle [employer] TESTING TECHNICIAN 09/14/2019 Obesity due to excess calories Medical E stablished Patient with Poly Salvador [facility] 09/14/2019 Z68.37 - Body mass index (BM I) 37.0-37.9, adult Medical Established Patient with Poly Franco [facility] 09/14/2019 L25.5 - Unspecified contact dermatitis due to plants, except food Telemedicine with Poly Wagonerle [facility] 09/11/2019 Obesity due to excess calories Telemedicine with Poly Wagonerle [facility] 09/11/2019 Z68.37 - Body mass index (BM I) 37.0-37.9, adult Telemedicine with Poly Wagonerle [facility] 09/11/2019 Dermatitis due to contact wi th poison spencer [facility] Obesity due to excess calories Telemedicine with Poly Wagonerle [facility] 09/05/2019 Z68.37 - Body mass index (BM I) 37.0-37.9, adult Telemedicine with Poly Wagonerle [facility] 09/05/2019 Obesity due to excess calories Medical E stablished Patient with Miguel Holley [facility] 08/17/2019 Z68.37 - Body mass index (BM I) 37.0-37.9, adult Medical Established Patient with Miguelleigh Anguloen [facility] 08/17/2019 Generalized anxiety disorder BH Establis hed Patient with Anh VIDAL 07/06/2019 Anxiety disorder NOS Medical New Patient with Allyson Floyd MAGNETIC TESTING TECHNICIAN 07/06/2019 Depression Medical New Patient with Allyson Everett MAGNETIC TESTING TECHNICIAN 07/06/2019 Diabetes Risk Test Score was one score M edical New Patient with Allyson Norfolk MAGNETIC TESTING TECHNICIAN 07/06/2019 Idiopathic insomnia Medical New Patient with Allyson Floyd MAGNETIC TESTING TECHNICIAN 07/06/2019 Obesity due to excess calories Medical N ew Patient with Allysonheidi Floyd MAGNETIC TESTING TECHNICIAN 07/06/2019 Z68.39 - Body mass index (BM I) 39.0-39.9 adult Medical New Patient with Allyson Floyd MAGNETIC TESTING TECHNICIAN 07/06/2019 [facility] [employer] Work Phone: Evaluation note* Diagnosis Nausea vomiting and diarrhea- Primary Nausea with vomiting Generalized abdominal pain Abdominal pain, generalized documented in this encounter [employer] Phone: evaluation note* Diagnosis Women's annual routine gynecological examination documented in this encounter [employer] Phone: evaluation note* Diagnosis Women's annual routine gynecological examination Intrauterine contraceptive device threads lost, initial encounter documented in this encounter [employer] [facility]* Diagnosis Second trimester state, incidental documented in this encounter [facility] Narrative History of Present Illness not supported for this document type No History of Present Illness RecordedHealth [facility]ifts that [facility] Work Phone: Hospital Discharge instructions* Attachments The following attachments cannot be sent through Care Everywhere. * Abdominal Pain (Cameroonian) * Nausea and Vomiting (Cameroonian) * Diarrhea (Cameroonian) [facility]: Instructions Instructions not supported for this document type No Instructions RecordedHealth Gifts that Give [facility] Work Phone: Patient problem outcome Narrative Includes: Evaluations & Outcomes for active Goals No Outcomes RecordedHealth Gifts that Give [facility] Work Phone: Reason for referral (narrative)No Reason for Referral RecordedHealth [facility] [employer] Phone: Review of systems Narrative - Reported Review of Systems not supported for this document type No Review of Systems [facility] [employer] Phone: Summary Purpose Family History No Family History Records Found Description Last Updated Maternal history of rheumatoid arthritis 07/06/2019 Maternal history of rheumatologic disord er Fibromyalgia 07/06/2019 Maternal history of systemic lupus eryth ematosus 07/06/2019 Paternal history of type 1 diabetes marino itus 07/06/2019 Advance Directives No Advanced Directives Records FoundDocuments on File Type Date Recorded Patient Internal Revenue Agent Expl anation Advance Directives and Living Will Power of Ethanol Quality Leader Documents on File Type Date Recorded Patient Internal Revenue Agent Expl anation ACP-Advance Directive ACP-Power of Eth[employer] Quality Leader Documents on File Type Date Recorded Patient Internal Revenue Agent Expl anation Advance Directives and Living Will Power of Ethanol Quality Leader Reason for Referral No Reason for Referral [...] NOS Medical New Patient with Allyson Floyd MAGNETIC TESTING TECHNICIAN 07/06/2019 Depression Medical New Patient with Allyson Floyd MAGNETIC TESTING TECHNICIAN 07/06/2019 Diabetes Risk Test Score was one score Medical New Patient with Allyson Floyd MAGNETIC TESTING TECHNICIAN 07/06/2019 Idiopathic insomnia Medical New Patient with Allyson Nye MAGNETIC TESTING TECHNICIAN 07/06/2019 Obesity due to excess calories Medical N ew Patient with Allyson Floyd MAGNETIC TESTING TECHNICIAN 07/06/2019 Z68.39 - Body mass index (BM I) 39.0-39.9 adult Medical New Patient with Allyson Floyd MAGNETIC TESTING TECHNICIAN 07/06/2019 Findings Encounter Date Obesity due to excess calories Medical E stablished Patient with Poly Franco MAGNETIC TESTING TECHNICIAN 10/12/2019 Z68.38 - Body mass index (BM I) 38.0-38.9, adult Medical Established Patient with Poly Wagonerle MAGNETIC TESTING TECHNICIAN 10/12/2019 L25.5 - Unspecified contact dermatitis due to plants, except food Medical Established Patient with Poly Wagonerle MAGNETIC TESTING TECHNICIAN 09/14/2019 Obesity due to excess calories Medical E stablished Patient with Poly Wagonerle MAGNETIC TESTING TECHNICIAN 09/14/2019 Z68.37 - Body mass index (BM I) 37.0-37.9, adult Medical Established Patient with Poly Wagonerle MAGNETIC TESTING TECHNICIAN 09/14/2019 L25.5 - Unspecified contact dermatitis due to plants, except food Telemedicine with Poly Franco MAGNETIC TESTING TECHNICIAN 09/11/2019 Obesity due to excess calories Telemedicine with Poly Franco MAGNETIC TESTING TECHNICIAN 09/11/2019 Z68.37 - Body mass index (BM I) 37.0-37.9, adult Telemedicine with Poly Franco [employer] TESTING TECHNICIAN 09/11/2019 Dermatitis due to contact wi th poison spencer Telemedicine with Poly Franco MAGNETIC TESTING TECHNICIAN 09/05/2019 Obesity due to excess calories Telemedicine with Poly Franco [facility] 09/05/2019 Z68.37 - Body mass index (BM I) 37.0-37.9, adult Telemedicine with Poly Franco [employer] TESTING TECHNICIAN 09/05/2019 Obesity due to excess calories Medical E stablished Patient with Miguel Holley MAGNETIC TESTING TECHNICIAN 08/17/2019 Z68.37 - Body mass index (BM I) 37.0-37.9, adult Medical Established Patient with Miguelleigh Holley MAGNETIC TESTING TECHNICIAN 08/17/2019 Generalized anxiety disorder BH Establis hed Patient with Anh RODAS-S 07/06/2019 Anxiety disorder NOS Medical New Patient with Allyson Norfolk MAGNETIC TESTING TECHNICIAN 07/06/2019 Depression Medical New Patient with Allyson Norfolk MAGNETIC TESTING TECHNICIAN 07/06/2019 Diabetes Risk Test Score was one score Medical New Patient with Allyson Norfolk MAGNETIC TESTING TECHNICIAN 07/06/2019 Idiopathic insomnia Medical New Patient with Allyson Norfolk MAGNETIC TESTING TECHNICIAN 07/06/2019 Obesity due to excess calories Medical N ew Patient with Allyson Norfolk MAGNETIC TESTING TECHNICIAN 07/06/2019 Z68.39 - Body mass index (BM I) 39.0-39.9 adult Medical New Patient with Allyson Norfolk MAGNETIC TESTING TECHNICIAN 07/06/2019 Findings Encounter Date Obesity due to excess calories Medical E stablished Patient with Miguel Leydi MAGNETIC TESTING TECHNICIAN 08/17/2019 Z68.37 - Body mass index (BM I) 37.0-37.9, adult Medical Established Patient with Miguel Leydi MAGNETIC TESTING TECHNICIAN 08/17/2019 Generalized anxiety disorder BH Establis hed Patient with Anh RODAS-S 07/06/2019 Anxiety disorder NOS Medical New Patient with Allyson Norfolk MAGNETIC TESTING TECHNICIAN 07/06/2019 Depression Medical New Patient with Allyson Everett MAGNETIC TESTING TECHNICIAN 07/06/2019 Diabetes Risk Test Score was one score Medical New Patient with Allyson Norfolk MAGNETIC TESTING TECHNICIAN 07/06/2019 Idiopathic insomnia Medical New Patient with Allyson Norfolk MAGNETIC TESTING TECHNICIAN 07/06/2019 Obesity due to excess calories Medical N ew Patient with Allyson Norfolk MAGNETIC TESTING TECHNICIAN 07/06/2019 Z68.39 - Body mass index (BM I) 39.0-39.9 adult Medical New Patient with Allyson Floyd MAGNETIC TESTING TECHNICIAN 07/06/2019 Findings Encounter Date Dermatitis due to contact wi th poison spencer Telemedicine with Poly Franco MAGNETIC TESTING TECHNICIAN 09/05/2019 Obesity due to excess calories Telemedicine with Poly Wagonerle MAGNETIC TESTING TECHNICIAN 09/05/2019 Z68.37 - Body mass index (BM I) 37.0-37.9, adult Telemedicine with Poly Wagonerle MAGNETIC TESTING TECHNICIAN 09/05/2019 Obesity due to excess calories Medical E stablished Patient with Miguel Holley MAGNETIC TESTING TECHNICIAN 08/17/2019 Z68.37 - Body mass index (BM I) 37.0-37.9, adult Medical Established Patient with Miguel Holley MAGNETIC TESTING TECHNICIAN 08/17/2019 Generalized anxiety disorder BH Establis hed Patient with Anh VIDAL 07/06/2019 Anxiety disorder NOS Medical New Patient with Allyson Floyd MAGNETIC TESTING TECHNICIAN 07/06/2019 Depression Medical New Patient with Allyson Floyd MAGNETIC TESTING TECHNICIAN 07/06/2019 Diabetes Risk Test Score was one score Medical New Patient with Allyson Floyd MAGNETIC TESTING TECHNICIAN 07/06/2019 Idiopathic insomnia Medical New Patient with Allyson Floyd MAGNETIC TESTING TECHNICIAN 07/06/2019 Obesity due to excess calories Medical N ew Patient with Allyson Floyd MAGNETIC TESTING TECHNICIAN 07/06/2019 Z68.39 - Body mass index (BM I) 39.0-39.9 adult Medical New Patient with Allyson Floyd MAGNETIC TESTING TECHNICIAN 07/06/2019 Findings Encounter Date L25.5 - Unspecified contact dermatitis due to plants, except food Telemedicine with Poly Franco [facility] 09/11/2019 Obesity due to excess calories Telemedicine with Poyl Wagonerle [facility] 09/11/2019 Z68.37 - Body mass index (BM I) 37.0-37.9, adult Telemedicine with Poly Salvador MAGNETIC TESTING TECHNICIAN 09/11/2019 Dermatitis due to contact wi th poison spencer Telemedicine with Poly Salvador MAGNETIC TESTING TECHNICIAN 09/05/2019 Obesity due to excess calories Telemedicine with Poly Salvador MAGNETIC TESTING TECHNICIAN 09/05/2019 Z68.37 - Body mass index (BM I) 37.0-37.9, adult Telemedicine with Poly Wagonerle MAGNETIC TESTING TECHNICIAN 09/05/2019 Obesity due to excess calories Medical E stablished Patient with Miguelleigh Holley [facility] 08/17/2019 Z68.37 - Body mass index (BM I) 37.0-37.9, adult Medical Established Patient with Miguel Holley [facility] 08/17/2019 Generalized anxiety disorder BH Establis hed Patient with Anh VIDAL 07/06/2019 Anxiety disorder NOS Medical New Patient with Allyson Floyd MAGNETIC TESTING TECHNICIAN 07/06/2019 Depression Medical New Patient with Allyson Nye MAGNETIC TESTING TECHNICIAN 07/06/2019 Diabetes Risk Test Score was one score Medical New Patient with Allyson Everett MAGNETIC TESTING TECHNICIAN 07/06/2019 Idiopathic insomnia Medical New Patient with Allyson Nye MAGNETIC TESTING TECHNICIAN 07/06/2019 Obesity due to excess calories Medical N ew Patient with Allyson Norfolk [facility] 07/06/2019 Z68.39 - Body mass index (BM I) 39.0-39.9 adult Medical New Patient with Allyson Floyd [facility] 07/06/2019 Findings Encounter Date L25.5 - Unspecified contact dermatitis due to plants, except food [facility] Obesity due to excess calories Medical E stablished Patient with Poly [facility] 09/14/2019 Z68.37 - Body mass index (BM I) 37.0-37.9, adult [facility]2019 L25.5 - Unspecified contact dermatitis due to plants, except food [facility] due to [facility] Z68.37 - Body mass index (BM I) 37.0-37.9, adult Telemedicine with Poly [facility] 09/11/2019 Dermatitis due to contact wi th poison spencer Telemedicine with Poly [facility] 09/05/2019 Obesity due to excess calories Telemedicine with Poly [facility] 09/05/2019 Z68.37 - Body mass index (BM I) 37.0-37.9, adult Telemedicine with Poly [facility] 09/05/2019 Obesity due to excess calories Medical E stablished Patient with Miguel [facility] 08/17/2019 Z68.37 - Body mass index (BM I) 37.0-37.9, adult Medical Established Patient with Miguel Holley [facility] 08/17/2019 Generalized anxiety disorder BH Establis hed Patient with Anh VIDAL 07/06/2019 Anxiety disorder NOS Medical New Patient with Allyson Floyd MAGNETIC TESTING TECHNICIAN 07/06/2019 Depression Medical New Patient with Allyson Floyd CNP 07/06/2019 Diabetes Risk Test Score was one score Medical New Patient with Allyson Floyd MAGNETIC TESTING TECHNICIAN 07/06/2019 Idiopathic insomnia Medical New Patient with Allyson Floyd MAGNETIC TESTING TECHNICIAN 07/06/2019 Obesity due to excess calories Medical N ew Patient with Allyson Floyd MAGNETIC TESTING TECHNICIAN 07/06/2019 Z68.39 - Body mass index (BM I) 39.0-39.9 adult Medical New Patient with Allyson Floyd MAGNETIC TESTING TECHNICIAN 07/06/2019 Findings Encounter Date Obesity due to excess calories Medical E stablished Patient with Poly Franco [facility] 11/06/2019 Z68.36 - Body mass index (BM I) 36.0-36.9, adult Medical Established Patient with Poly Wagonerle MAGNETIC TESTING TECHNICIAN 11/06/2019 Obesity due to excess calories Medical E stablished Patient with Poly Wagonerle [facility] 10/12/2019 Z68.38 - Body mass index (BM I) 38.0-38.9, adult Medical Established Patient with Polykamryn Wagonerle [facility] 10/12/2019 L25.5 - Unspecified contact dermatitis due to plants, except food Medical Established Patient with Poly Wagonerle [facility] 09/14/2019 Obesity due to excess calories Medical E stablished Patient with Poly Salvador [facility] 09/14/2019 Z68.37 - Body mass index (BM I) 37.0-37.9, adult Medical Established Patient with Poly Wagonerle [facility] 09/14/2019 L25.5 - Unspecified contact dermatitis due to plants, except food Telemedicine with Poly Wagonerle [facility] 09/11/2019 Obesity due to excess calories Telemedicine with Poly Salvador [facility] 09/11/2019 Z68.37 - Body mass index (BM I) 37.0-37.9, adult Telemedicine with Poly Salvador [facility] 09/11/2019 Dermatitis due to contact wi th poison spencer Telemedicine with Poly Salvador [facility] 09/05/2019 Obesity due to excess calories Telemedicine with Poly Salvador [facility] 09/05/2019 Z68.37 - Body mass index (BM I) 37.0-37.9, adult Telemedicine with Poly Wagonerle [facility] 09/05/2019 Obesity due to excess calories Medical E stablished Patient with Miguel Holley [facility] 08/17/2019 Z68.37 - Body mass index (BM I) 37.0-37.9, adult Medical Established Patient with Miguel Holley MAGNETIC TESTING TECHNICIAN 08/17/2019 Generalized anxiety disorder BH Establis hed Patient with Anh VIDAL 07/06/2019 Anxiety disorder NOS Medical New Patient with Allyson Floyd MAGNETIC TESTING TECHNICIAN 07/06/2019 Depression Medical New Patient with Allyson Floyd MAGNETIC TESTING TECHNICIAN 07/06/2019 Diabetes Risk Test Score was one score Medical New Patient with Allyson Floyd MAGNETIC TESTING TECHNICIAN 07/06/2019 Idiopathic insomnia Medical New Patient with Allyson Floyd MAGNETIC TESTING TECHNICIAN 07/06/2019 Obesity due to excess calories Medical N ew Patient with Allyson Everett MAGNETIC TESTING TECHNICIAN 07/06/2019 Z68.39 - Body mass index (BM I) 39.0-39.9 adult Medical New Patient with Allyson Floyd MAGNETIC TESTING TECHNICIAN 07/06/2019 Findings Encounter Date Obesity due to excess calories Medical E stablished Patient with Poly Wagonerle MAGNETIC TESTING TECHNICIAN 12/05/2019 R21 - Rash and other nonspec ific skin eruption Medical Established Patient with Poly Salvador MAGNETIC TESTING TECHNICIAN 12/05/2019 Z68.35 - Body mass index (BM I) 35.0-35.9, adult Medical Established Patient with Poly Salvador MAGNETIC TESTING TECHNICIAN 12/05/2019 Obesity due to excess calories Medical E stablished Patient with Poly Salvador MAGNETIC TESTING TECHNICIAN 11/06/2019 Z68.36 - Body mass index (BM I) 36.0-36.9, adult Medical Established Patient with Poly Salvador MAGNETIC TESTING TECHNICIAN 11/06/2019 Obesity due to excess calories Medical E stablished Patient with Poly Salvador MAGNETIC TESTING TECHNICIAN 10/12/2019 Z68.38 - Body mass index (BM I) 38.0-38.9, adult Medical Established Patient with Poly Salvador MAGNETIC TESTING TECHNICIAN 10/12/2019 L25.5 - Unspecified contact dermatitis due to plants, except food Medical Established Patient with Poly Salvador MAGNETIC TESTING TECHNICIAN 09/14/2019 Obesity due to excess calories Medical E stablished Patient with Poly Salvador MAGNETIC TESTING TECHNICIAN 09/14/2019 Z68.37 - Body mass index (BM I) 37.0-37.9, adult Medical Established Patient with Poly Salvador MAGNETIC TESTING TECHNICIAN 09/14/2019 L25.5 - Unspecified contact dermatitis due to plants, except food Telemedicine with Poly Salvador MAGNETIC TESTING TECHNICIAN 09/11/2019 Obesity due to excess calories Telemedicine with Poly Franco [facility] 09/11/2019 Z68.37 - Body mass index (BM I) 37.0-37.9, adult Telemedicine with Poly Franco [facility] 09/11/2019 Dermatitis due to contact wi th poison spencer Telemedicine with Poly Franco [facility] 09/05/2019 Obesity due to excess calories Telemedicine with Poly Franco [facility] 09/05/2019 Z68.37 - Body mass index (BM I) 37.0-37.9, adult Telemedicine with Poly Franco MAGNETIC TESTING TECHNICIAN 09/05/2019 Obesity due to excess calories Medical E stablished Patient with Miguel Holley [facility] 08/17/2019 Z68.37 - Body mass index (BM I) 37.0-37.9, adult Medical Established Patient with Miguel Holley [facility] 08/17/2019 Generalized anxiety disorder BH Establis hed Patient with Anh FERNANDEZS 07/06/2019 Anxiety disorder NOS Medical New Patient with Allyson Floyd [facility] 07/06/2019 Depression Medical New Patient with Allyson Nye MAGNETIC TESTING TECHNICIAN 07/06/2019 Diabetes Risk Test Score was one score Medical New Patient with Allyson Norfolk MAGNETIC TESTING TECHNICIAN 07/06/2019 Idiopathic insomnia Medical New Patient with Allyson Norfolk MAGNETIC TESTING TECHNICIAN 07/06/2019 Obesity due to excess calories Medical N ew Patient with Allyson Norfolk MAGNETIC TESTING TECHNICIAN 07/06/2019 Z68.39 - Body mass index (BM I) 39.0-39.9 adult Medical New Patient with Allyson Nye [facility] 07/06/2019 Findings Encounter Date Obesity due to excess calories Medical E stablished Patient with Miguel Holley [facility] 03/05/2020 Z68.37 - Body mass index [BM I] 37.0-37.9, adult Medical Established Patient with Miguel Holley [facility] 03/05/2020 Obesity due to excess calories Medical E stablished Patient with Poly Franco MAGNETIC TESTING TECHNICIAN 12/05/2019 R21 - Rash and other nonspec [facility] skin eruption Medical Established Patient with Poly Wagonerle MAGNETIC TESTING TECHNICIAN 12/05/2019 Z68.35 - Body mass index (BM I) 35.0-35.9, adult Medical Established Patient with Poly Wagonerle MAGNETIC TESTING TECHNICIAN 12/05/2019 Obesity due to excess calories Medical E stablished Patient with Polykamryn Wagonerle MAGNETIC TESTING TECHNICIAN 11/06/2019 Z68.36 - Body mass index (BM I) 36.0-36.9, adult Medical Established Patient with Poly Franco [facility] 11/06/2019 Obesity due to excess calories Medical E stablished Patient with Poly Wagonerle [facility] 10/12/2019 Z68.38 - Body mass index (BM I) 38.0-38.9, adult Medical Established Patient with Poly Wagonerle [facility] 10/12/2019 L25.5 - Unspecified contact dermatitis due to plants, except food Medical Established Patient with Poly Wagonerle MAGNETIC TESTING TECHNICIAN 09/14/2019 Obesity due to excess calories Medical E stablished Patient with Polykamrny Wagonerle [facility] 09/14/2019 Z68.37 - Body mass index (BM I) 37.0-37.9, adult Medical Established Patient with Poly Franco [facility] 09/14/2019 L25.5 - Unspecified contact dermatitis due to plants, except food [facility] Obesity due to excess calories [facility]11/2019 Z68.37 - Body mass index (BM I) 37.0-37.9, adult [facility]2019 Dermatitis due to contact wi th poison spencer Telemedicine with Poly Franco [facility] 09/05/2019 Obesity due to excess calories [facility] 09/05/2019 Z68.37 - Body mass index (BM I) 37.0-37.9, adult [facility]2019 Obesity due to excess calories Medical E stablished Patient with Miguel Holley [facility] 08/17/2019 Z68.37 - Body mass index (BM I) 37.0-37.9, adult Medical Established Patient with Miguel Leydi [facility] 08/17/2019 Generalized anxiety disorder BH Establis hed Patient with Anh VIDAL 07/06/2019 Anxiety disorder NOS Medical New Patient with Allyson Norfolk MAGNETIC TESTING TECHNICIAN 07/06/2019 Depression Medical New Patient with Allyson Everett MAGNETIC TESTING TECHNICIAN 07/06/2019 Diabetes Risk Test Score was one score Medical New Patient with Allyson Norfolk MAGNETIC TESTING TECHNICIAN 07/06/2019 Idiopathic insomnia Medical New Patient with Allyson Norfolk MAGNETIC TESTING TECHNICIAN 07/06/2019 Obesity due to excess calories Medical N ew Patient with Allyson Norfolk MAGNETIC TESTING TECHNICIAN 07/06/2019 Z68.39 - Body mass index (BM I) 39.0-39.9 adult Medical New Patient with Allyson Floyd MAGNETIC TESTING TECHNICIAN 07/06/2019 Findings Encounter Date Cough Telemedicine Establi sted Patient with Miguel Holley MAGNETIC TESTING TECHNICIAN 03/19/2020 Exposure to a viral disease Telemedicine Establisted Patient with Miguel Holley MAGNETIC TESTING TECHNICIAN 03/19/2020 Obesity due to excess calories Telemedic ine Establisted Patient with Miguel Holley MAGNETIC TESTING TECHNICIAN 03/19/2020 Z68.37 - Body mass index [BM I] 37.0-37.9, adult Telemedicine Establisted Patient with Miguel Holley MAGNETIC TESTING TECHNICIAN 03/19/2020 Obesity due to excess calories Medical E stablished Patient with Miguel Holley MAGNETIC TESTING TECHNICIAN 03/05/2020 Z68.37 - Body mass index [BM I] 37.0-37.9, adult Medical Established Patient with Miguel Holley MAGNETIC TESTING TECHNICIAN 03/05/2020 Obesity due to excess calories Medical E stablished Patient with Poly Wagonerle MAGNETIC TESTING TECHNICIAN 12/05/2019 R21 - Rash and other nonspec ific skin eruption Medical Established Patient with Poly Salvador MAGNETIC TESTING TECHNICIAN 12/05/2019 Z68.35 - Body mass index (BM I) 35.0-35.9, adult Medical Established Patient with Poly Salvador MAGNETIC TESTING TECHNICIAN 12/05/2019 Obesity due to excess calories Medical E stablished Patient with Poly Salvador MAGNETIC TESTING TECHNICIAN 11/06/2019 Z68.36 - Body mass index (BM I) 36.0-36.9, adult Medical Established Patient with Poly Salvador MAGNETIC TESTING TECHNICIAN 11/06/2019 Obesity due to excess calories Medical E stablished Patient with Poly Salvador MAGNETIC TESTING TECHNICIAN 10/12/2019 Z68.38 - Body mass index (BM I) 38.0-38.9, adult Medical Established Patient with Poly Salvador MAGNETIC TESTING TECHNICIAN 10/12/2019 L25.5 - Unspecified contact dermatitis due to plants, except food Medical Established Patient with Poly Salvador MAGNETIC TESTING TECHNICIAN 09/14/2019 Obesity due to excess calories Medical E stablished Patient with Poly Salvador MAGNETIC TESTING TECHNICIAN 09/14/2019 Z68.37 - Body mass index (BM I) 37.0-37.9, adult Medical Established Patient with Poly Salvador MAGNETIC TESTING TECHNICIAN 09/14/2019 L25.5 - Unspecified contact dermatitis due to plants, except food Telemedicine with Polykamryn Wagonerle MAGNETIC TESTING TECHNICIAN 09/11/2019 Obesity due to excess calories Telemedicine with Poly Franco [facility] 09/11/2019 Z68.37 - Body mass index (BM I) 37.0-37.9, adult Telemedicine with Poly Franco [facility] 09/11/2019 Dermatitis due to contact wi th poison spencer Telemedicine with Poly Franco [facility] 09/05/2019 Obesity due to excess calories Telemedicine with Poly Franco [facility] 09/05/2019 Z68.37 - Body mass index (BM I) 37.0-37.9, adult Telemedicine with Poly Franco [facility] 09/05/2019 Obesity due to excess calories Medical E stablished Patient with Miguel Holley [facility] 08/17/2019 Z68.37 - Body mass index (BM I) 37.0-37.9, adult Medical Established Patient with Miguel Holley [facility] 08/17/2019 Generalized anxiety disorder BH Establis hed Patient with Anh VIDAL 07/06/2019 Anxiety disorder NOS Medical New Patient with Allyson Floyd [facility] 07/06/2019 Depression Medical New Patient with Allyson Floyd MAGNETIC TESTING TECHNICIAN 07/06/2019 Diabetes Risk Test Score was one score Medical New Patient with Allyson Norfolk MAGNETIC TESTING TECHNICIAN 07/06/2019 Idiopathic insomnia Medical New Patient with Allyson Floyd MAGNETIC TESTING TECHNICIAN 07/06/2019 Obesity due to excess calories Medical N ew Patient with Allyson Nye MAGNETIC TESTING TECHNICIAN 07/06/2019 Z68.39 - Body mass index (BM I) 39.0-39.9 adult Medical New Patient with Allyson Floyd [facility] 07/06/2019 Diagnosis COVID-19 Fatty liver Other chronic [...] Everywhere. * Coronavirus Disease (COVID-19): General Info (Cameroonian) documented in this encounter Additional Source Comments INFORMATION SOURCE (unrecogn ized section and content) DATE CREATED AUTHOR 11/24/2017 [facility] DATE CREATED AUTHOR AUTHOR'S ORGANIZ ATION 08/26/2018 [facility] DATE CREATED AUTHOR AUTHOR'S ORGANIZ ATION 09/24/2020 [facility] DATE CREATED AUTHOR AUTHOR'S ORGANIZ ATION 05/14/2023 [facility] DATE CREATED AUTHOR AUTHOR'S ORGANIZ ATION 09/17/2023 [facility] EPIC Evaluations & Outcomes [...] US TRANSVAGINAL, NON OB Dana Akins MD [address] [place] [id number] [facility] Ul[facility]ound [address] [place] [id number] Reason Comments Emesis multiple episodes si nce 1999 Diarrhea x12-13 since 1999 Abdominal Pain mid upper abd Reason Comments Routine Visit Ordered Prescriptions (unrec ognized section and content) [...] Care Teams (unrecognized sec tion and content) Applique Sewer Relationship Specialty Start Date End Date Miguel Holley APRN [facility] PCP - General Family Medicine 04/08/20 Applique Sewer Relationship Specialty Start Date End Date Miguel Holley AIR TRAFFIC CONTROL MANAGER [facility] PCP - General Family Medicine 04/08/20 Applique Sewer Relationship Specialty Start Date End Date Miguel Holley AIR TRAFFIC CONTROL MANAGER [facility] PCP - General Family Medicine 04/08/20 FOR [...] BE BASED ON THE PRIMARY CLINICAL RECORDS. [employer] [facility] provides no warranty or guarantee of the accuracy or completeness of information in this document.
[2023-10-04 12:17] LABS: Bilirubin Urine NEGATIVE (NEGATIVE); Blood Urine NEGATIVE (NEGATIVE); Clarity Urine CLEAR (CLEAR); Color Urine YELLOW (YELLOW); Glucose Urine UA NEGATIVE (NEGATIVE); Ketones Urine TRACE mg/dL (NEGATIVE); Leukocyte Esterase Urine NEGATIVE (NEGATIVE); Nitrite Urine NEGATIVE (NEGATIVE); Protein Urine NEGATIVE (NEG/TRACE); Specific Gravity Urine >=1.030 (1.005-1.025); Urobilinogen Urine 0.2 EU/dL (0.2-1.0)
[2023-10-04 12:23] LABS: Urine Microscopic Indicated NO
--- NOTE | 2023-10-04 12:24 | PC.NURSE ---
Pt states that pain in upper abd. actually started about 1 1/2 weeks ago at night only. Has progressed over time to this past Wednesday when became episodes more constant and intense. Talked to Dr. Cervantes on Sat & got a prescription for Reglan. Wednesday started with diarrhea & vomiting with pain a 9 of 10 during episodes. Stays a constant 4-5. Has slight HAM today, Abd. tender to palpation in epigastric area. Reflexes 0-1+ upper & 0 lower. Urines to lab for UA.
--- NOTE | 2023-10-04 12:47 | US_ITS ---
[address] [address] Patient Name: TARA FLOREZ MRN: [id number] date: 1995 Sex: F Assigned Patient Location: [facility] Current Patient Location: [facility] Accession/Order Number: [id number] Exam Date: 10/04/2023 13:10 Report Date: 10/04/2023 14:02 At the request of: BRUCE CARD Procedure: US right upper quadrant EXAM: US right upper quadrant HISTORY: Gallbladder pain COMPARISON: None. TECHNIQUE: Grayscale and color ultrasound FINDINGS: The liver is normal in size, contour and echotexture with no focal mass. Hepatopedal flow in the main portal vein The visualized pancreas is normal. The gallbladder is normal. The wall measures 1.8 mm. Negative sonographic Clarke sign. The common bile duct measures 3.5 mm, normal. The right kidney is normal measuring 12.7 x 5.8 x 4.7 cm No free fluid US/US right upper quadrant IMPRESSION: Normal exam Electronically authenticated by: KURT STONE Date: 10/04/2023 14:02
[2023-10-04] MEDS: 0.9 % SODIUM CHLORIDE 1,000 ML 1000 ML IV (13:11)
[2023-10-04] MEDS: ONDANSETRON PF 4 MG/2 ML VIAL IV ×2 (13:18→20:43)
[2023-10-04] MEDS: PANTOPRAZOLE SODIUM 40 MG VIAL IV (13:44)
[2023-10-04 13:53] LABS: Basophils Percent Auto 0.3 % (0.2-2.0); Eosinophils Absolute Auto 0.1 10^3/uL (0.0-0.7); Eosinophils Percent Auto 1.1 % (0.9-7.0); Hematocrit 31.3 % (36.0-48.0); Hemoglobin 10.5 g/dL (12.0-16.0); Immature Granulocytes Abs Auto 0.07 10^3/uL (0.00-0.03); Immature Granulocytes Pct Auto 0.7 % (0.0-0.5); Lymphocytes Absolute Auto 1.5 10^3/uL (1.2-3.8); Lymphocytes Percent Auto 14.2 % (20.5-60.0); Mean Corpuscular HGB Conc 33.5 g/dL (29.9-35.2); Mean Corpuscular Hemoglobin 27.6 pg (26.7-34.0); Mean Corpuscular Volume 82.2 fL (81.0-99.0); Mean Platelet Volume 10.9 fL (9.5-13.5); Monocytes Absolute Auto 0.8 10^3/uL (0.3-0.8); Monocytes Percent Auto 7.7 % (1.7-12.0); Platelet Count 144 10^3/uL (150-450); Red Blood Count 3.81 10^6/uL (4.20-5.40); Red Cell Distribution Width 13.4 % (11.0-15.0); White Blood Count 10.6 10^3/uL (4.0-11.0)
[2023-10-04 14:13] LABS: Amylase 58 U/L (25-115)
[2023-10-04] MEDS: 0.9 % SODIUM CHLORIDE 1,000 ML 150 ML IV ×2 (14:16→20:39)
[2023-10-04 14:23] LABS: Alanine Aminotransferase 16 U/L (14-59); Albumin Globulin Ratio 0.6; Albumin Level 2.3 g/dL (3.4-5.0); Alkaline Phosphatase 55 U/L (46-116); Anion Gap 14.1; Aspartate Amino Transferase 14 U/L (15-37); BUN Creatinine Ratio 15.4; Bilirubin Total 0.3 mg/dL (0.2-1.0); Calcium 8.3 mg/dL (8.5-10.1); Carbon Dioxide 20.4 mmol/L (21.0-32.0); Chloride 106 mmol/L (98-107); Estimated GFR (African America >60 (>=60); Estimated GFR (Non-African Ame >60 (>=60); Globulin 3.6 g/dL; Glucose 72 mg/dL (74-106); Potassium 3.5 mmol/L (3.5-5.1); Sodium 137 mmol/L (136-145); Total Protein 5.9 g/dL (6.4-8.2)
[2023-10-04 16:55] VITALS: TEMP 36.3
[2023-10-04 16:56] VITALS: BP 135/72; PULSE 83
[2023-10-04] MEDS: lidocaine HCL 15 ML, MAG HYDROX/ALUMINUM HYD/SIMETH 30 ML, HYOSCYAMINE SULFATE 0.25 MG PO (17:06)
--- NOTE | 2023-10-04 19:20 | W.PC.ACHO ---
Registration Status: ADM SUZI Primary Language: Preferred Language: Reported on testing results, pending tests & medications. Active Medications Generic Name Dose Route Start Last Admin Trade Name Freq PRN Reason Stop Dose Admin Sodium Chloride 1,000 mls @ 150 mls/hr 10/04/23 14:00 10/04/23 14:16 Sodium Chloride 0.9% 1,000 Ml IV 150 mls/hr .[id number] SKYE Administration Metronidazole 500 mg in 100 mls @ 100 mls/hr 10/04/23 21:00 Flagyl 500 Mg/100 Ml Premix IV BID SKYE Ondansetron HCl 4 mg 10/04/23 12:38 10/04/23 13:18 Ondansetron Pf 4 Mg/2 Ml Vial IV 4 mg Q6H PRN Administration Nausea IV Insertion/Site Date of IV Line Insertion [ 10/04/23 left Hand] IV Insertion Time [left Hand] 13:05
[2023-10-04 19:57] VITALS: BP 118/71; PULSE 87; TEMP 35.9
[2023-10-04] MEDS: ACETAMINOPHEN 500 MG TABLET 1000 MG PO (20:42)
[2023-10-04] MEDS: METRONIDAZOLE/SODIUM CHLORIDE 500 MG/100 ML PREMIX 100 MG IV (20:43)
[2023-10-05] MEDS: SUCRALFATE 1 GM TABLET PO ×2 (01:38→13:00)
[2023-10-05 01:40] VITALS: BP 112/67; PULSE 78; TEMP 36.5
[2023-10-05] MEDS: ACETAMINOPHEN 500 MG TABLET 1000 MG PO ×2 (02:46→12:57)
[2023-10-05] MEDS: ONDANSETRON PF 4 MG/2 ML VIAL IV ×2 (02:46→08:23)
[2023-10-05] MEDS: 0.9 % SODIUM CHLORIDE 1,000 ML 150 ML IV (05:01)
--- NOTE | 2023-10-05 07:41 | CT_ITS ---
[address] [address] Patient Name: TARA FLOREZ MRN: [facility]:[id number] date: 1995 Sex: F Assigned Patient Location: [facility] Current Patient Location: [facility] Accession/Order Number: [id number] Exam Date: 10/05/2023 07:38 Report Date: 10/05/2023 08:17 At the request of: BRUCE CARD Procedure: CT abdomen pelvis wo con EXAMINATION: CT abdomen pelvis wo con HISTORY: RUQ Pain, N/D COMPARISON: No relevant comparison available. TECHNIQUE: Axial, Coronal, and Sagittal images were obtained without and/or with IV contrast as indicated by examination type. Dose reduction techniques were achieved by using automated exposure control and/or adjustment of mA and/or kV according to patient size and/or use of iterative reconstruction technique. FINDINGS: LUNG BASES: No visible pulmonary or pleural disease. LIVER: No enlargement, atrophy, suspicious density, or significant focal lesion. BILIARY: No dilatation or calcification. PANCREAS: No lesion, fluid collection, or abnormal duct dilatation. SPLEEN: No enlargement or focal lesion. ADRENALS: No mass or enlargement. KIDNEYS: No mass, obstruction, or calcification. BOWEL/MESENTERY: Multiple fluid levels throughout the colon without appreciable wall thickening or inflammatory changes. No visible mass, obstruction, or bowel wall thickening. Prominent appendicolith at base of appendix, but no appendicitis. AORTA/VASCULAR: No aneurysm or dissection. RETROPERITONEUM: No mass or adenopathy. LYMPH NODES: No adenopathy. URINARY BLADDER: No visible focal wall thickening, lesion, or calculus. PELVIC ORGANS: Intrauterine consistent with patient history. ABDOMINAL WALL: No mass or hernia. BONES: No bony lesion or fracture. OTHER: Negative. CT/CT abdomen pelvis wo con IMPRESSION: 1. Air and fluid-filled colon without appreciable wall thickening or obstruction; possible enteritis or mild colitis. 2. Intrauterine . Electronically authenticated by: ARPITA MOLINA Date: 10/05/2023 08:17
[2023-10-05 08:21] VITALS: BP 103/55; PULSE 77; TEMP 36.2
[2023-10-05] MEDS: METRONIDAZOLE/SODIUM CHLORIDE 500 MG/100 ML PREMIX 100 MG IV (08:26)
[2023-10-05 13:29] VITALS: BP 109/59; PULSE 77; TEMP 36.6
[2023-10-05] MEDS: 0.9 % SODIUM CHLORIDE 1,000 ML 1000 ML IV (13:31)
--- NOTE | 2023-10-05 15:44 | P.IMCN_ITS ---
HPI - Internal Medicine CN Data of Consult Consult date: 10/05/23 Requesting Physician: Aditya Cervantes DO Primary Care Provider: Non-Staff Physician, MD Consult Narrative Reason for consult: Nausea/vomiting and diarrhea. Narrative: 28-year-old female with no significant past medical history, currently twenty- seven week struggling with gastrointestinal complaints/symptoms for about two weeks. She reports nausea and vomiting for past couple of days along with watery diarrhea. She has associated right upper quadrant pain that is i ntermittent. She also reports nocturnal diarrhea waking up in the middle of night to use the restroom. She denies any sick contacts. She also denies eating anything unusual. She was admitted yesterday to work up her gastrointestinal symptoms some improvement noted with IV fluids and antiemetics. She had extensive workup including CT abdomen and pelvis,Upper quadrant ultrasound,Urinalysis. She has no acute/significant intra-abdominal pathology except for possible ileitis/colitis. Hospitalist team was consulted for their input into her current illness. Discussed patient's clinical case with Dr. Cervantes, nursing staff. I also reviewed her medical records and recent testing. I ordered a gastrointestinal panel and recommended that oral Ceftin be added to her discharge medications. She likely has infectious gastroenteritis. Patient was encouraged to return to the hospital if she has intractable abdominal pain or nausea/vomiting. cc:: CC: Aditya Cervantes DO Review of Systems ROS Status of ROS 10 or more systems reviewed and unremark able except as noted in history and below Meds Home Medications and Allergies Home Medications ?Medication ?Instructions ?Recorded ?Confirmed ?Type cefuroxime axetil 500 mg tablet 500 mg PO BID 7 days #14 tabs 10/05/23 Rx magnesium oxide 400 mg PO DAILY #30 caps 10/05/23 Rx metronidazole 500 mg tablet 500 mg PO BID 7 days #14 tabs 10/05/23 Rx Allergies Allergy/AdvReac Type Severity Reaction Status Date / Time triamcinolone [From Kenalog] Allergy Severe Verified 10/04/23 12:37 Exam Constitutional Vital Signs, click to edit/add: Last Vital Signs Temp 97.9 F 10/05/23 13:29 Pulse 77 10/05/23 13:29 Resp 17 10/05/23 08:15 BP 109/59 10/05/23 13:29 O2 Del Method Room Air 10/05/23 08:15 Documenting provider has reviewed patient's vital signs: yes Common normals: no apparent distress and oriented x3 General appearance: cooperative HENMT Common normals: normocephalic and head/scalp atraumatic Head and scalp: normocephalic and atraumatic Eye Common normals: conjunctivae normal and no scleral icterus Conjunctiva: conjunctiva(e) normal Respiratory Common normals: normal respiratory effort and clear to auscultation bilaterally Effort & inspection: able to speak in complete sentences Auscultation: clear to auscultation bilaterally Cardio Common normals: regular rate, S1 normal heart sound and S2 normal heart sound Rate: regular rate Heart sounds: S1 normal and S2 normal GI Common normals: Normal to inspection, nondistended, normoactive bowel sounds present, soft to palpation and no hepatosplenomegaly Palpation: tender Details: RUQ Extremity Common normals: no clubbing, cyanosis or edema Neuro Common normals: oriented x3, moves all extremities and no focal motor deficits Psych Common normals: mental status grossly normal, denies hallucinations, denies homicidal ideation and denies suicidal ideation Assessment and Plan Assessment and Plan (1) Gastroenteritis: (2) Intractable nausea and vomiting: (3) Infectious diarrhea: (4) and not yet delivered in second trimester: Plan Tolerating PO diet. Stable for discharge. Ordered GI panel. Can follow the results outpatient. Added ceftin to Flagyl. Patient encouraged to return to ED if symptoms poorly controlled and unable to tolerate PO diet.
[2023-10-05 16:00] LABS: Adenovirus F 40/41 NOT DETECTED (NOT DETECTE); Astrovirus NOT DETECTED (NOT DETECTE); Campylobacter NOT DETECTED (NOT DETECTE); Cryptosporidium NOT DETECTED (NOT DETECTE); Cyclospora cayetanensis NOT DETECTED (NOT DETECTE); Entamoeba histolytica NOT DETECTED (NOT DETECTE); Enteroaggregative E.coli NOT DETECTED (NOT DETECTE); Enteropathogenic E.coli NOT DETECTED (NOT DETECTE); Enterotoxigenic E. coli NOT DETECTED (NOT DETECTE); Giardia lamblia NOT DETECTED (NOT DETECTE); Norovirus GI/GII NOT DETECTED (NOT DETECTE); Plesiomonas shigelloides NOT DETECTED (NOT DETECTE); Rotavirus A NOT DETECTED (NOT DETECTE); Salmonella NOT DETECTED (NOT DETECTE); Sapovirus NOT DETECTED (NOT DETECTE); Shiga-like toxin-producing E.C NOT DETECTED (NOT DETECTE); Shigella/Enteroinvasive E.coli NOT DETECTED (NOT DETECTE); Vibrio NOT DETECTED (NOT DETECTE); Vibrio cholerae NOT DETECTED (NOT DETECTE); Yersinia enterocolitica NOT DETECTED (NOT DETECTE)
[2023-10-06 21:09] LABS: Ova + Parasite Exam Final report (.)
== END 2023-10-05 15:38 | disposition home or self-care (01) ==
PROVIDERS: Internal Medicine; Admitting Provider Obstetrics & Gynecology; Visit Provider Obstetrics & Gynecology
DX: O98.812 Other maternal infectious and parasitic diseases complicating pregnancy, second trimester (principal); A09 Infectious gastroenteritis and colitis, unspecified; R11.2 Nausea with vomiting, unspecified; Z3A.27 27 weeks gestation of pregnancy
CPT/HCPCS: 36415; 59025; 74176; 76705; 80053; 81003; 82150; 83690; 85025; 87045; 87046; 87177; 87209; 87427; 87507; 96361; 96365; 96366; 96375; 96376; G0378; G0379

== ENCOUNTER 2023-10-28 08:51 | Outpatient (OUT) | payer OTHER, SELFPAY ==
--- NOTE | 2023-10-28 08:53 | US_ITS ---
[place] [id number] Patient Name: TARA FLOREZ MRN: [id number] date: 1995 Sex: F Assigned Patient Location: US Current Patient Location: US Accession/Order Number: [id number] Exam Date: 10/28/2023 08:55 Report Date: 10/28/2023 09:56 At the request of: BRUCE CARD Procedure: US OB growth EXAMINATION: US OB growth HISTORY: Size Inconsistent With Dates O26.849 COMPARISON: No relevant comparison available. FINDINGS: Heart Rate: 142.1 bpm Amniotic Fluid Volume: 15.0 cm Number: 1.0 Position: Cephalic presentation, longitudinal lie Maximum Vertical Pocket: 5.5 cm cm 3.9 cm cm 3.8 cm cm 1.9 cm cm BIOMETRY: BPD: 7.7 cm cm; 30 weeks 5 days; 60% HC: 29.3 cmcm; 32 weeks 2 days , 80% AC: 26.6 cm cm; 30 weeks 5 days, 67% FL: 6.1 cm cm; 31 weeks 4 days; 77.3 % % EFW: 1706.0 grams, 3 lbs. 12 oz., 77% FL/AC: 22.8 FL/BPD: 79.3 HC/AC: 1.1 GESTATIONAL AGE: Age by EDC: 30 weeks 0 days CARTER by EDC: 01/06/2024 Age by US: 31 weeks 2 days CARTER by US: 12/28/2023 US/US OB growth IMPRESSION: Normal interval growth Electronically authenticated by: KURT STONE Date: 10/28/2023 09:56
== END 2023-10-28 08:52 | disposition home or self-care (01) ==
LOC: US 08:51
PROVIDERS: Visit Provider Obstetrics & Gynecology
DX: O26.843 Uterine size-date discrepancy, third trimester (principal); Z3A.31 31 weeks gestation of pregnancy
CPT/HCPCS: 76816

== ENCOUNTER 2023-12-15 10:30 | Outpatient (OUT) | payer MEDICAID, SELFPAY ==
--- NOTE | 2023-12-15 10:33 | US_ITS ---
[address] [address] Patient Name: TARA FLOREZ MRN: [id number] date: 1995 Sex: F Assigned Patient Location: [facility] Current Patient Location: [facility] Accession/Order Number: [id number] Exam Date: 12/15/2023 10:33 Report Date: 12/15/2023 12:01 At the request of: BRUCE CARD Procedure: US OB growth EXAMINATION: US OB growth HISTORY: LARGE FOR GESTATIONAL AGE COMPARISON: Ultrasound OB anatomy 08/19/2023 FINDINGS: Heart Rate: 128 bpm Amniotic Fluid Volume: 22.8 cm (normal range) Number: 1 Position: CEPHALIC BIOMETRY: BPD: 9.47 cm; 38 weeks 4 days; 95 % HC: 35.49 cm; 41 weeks 4 days; >97 % AC: 36.85 cm; 40 weeks 5 days; >97% FL: 7.84 cm; 40 weeks 1 day; >97 % EFW: 3931.40 g; > 97 % FL/AC: 21.28 FL/BPD: 82.79 HC/AC: 0.96 GESTATIONAL AGE: Age by EDC: 36 weeks 6 days CARTER by EDC: 2024-01-06 Age by US: 40 weeks 2 days CARTER by US: Past due date US/US OB growth IMPRESSION: 1. Single live intrauterine with growth detailed above. 2. Estimated weight is greater than 97th percentile. Dr. Card was notified of findings by whipped topping mixer at time of imaging. Electronically authenticated by: ARPITA MOLINA Date: 12/15/2023 12:01
== END 2023-12-15 10:31 | disposition home or self-care (01) ==
LOC: NOMS 10:30
PROVIDERS: Visit Provider Obstetrics & Gynecology
DX: O36.63X0 Maternal care for excessive fetal growth, third trimester, not applicable or unspecified (principal); Z3A.36 36 weeks gestation of pregnancy
CPT/HCPCS: 76816

== ENCOUNTER 2023-12-15 20:15 | Outpatient (REF) | payer MEDICAID, SELFPAY ==
--- OUTSIDE RECORDS SUMMARY | 2023-12-15 20:20 | XMS_ITS | CCD ---
Author Organization [facility] Care Team Providers Care Melt Room Operator Name Role Phone NO FAMILY PHYSICIAN, 837 Unavailable Unavail able FELIX GALVAN Unavailable Unavailable Leydi, Miguel Primary Care Provider [phone] Jackson Haas Primary Care Provider 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 Primary Care Provider Leydi Miguel M Primary Care Provider [phone] 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 CNP Primary Care Provider Leydi SEARCH ENGINE MARKETING MANAGER - FEED PREPARATION OPERATOR, Miguel M Primary Care Provider LEYDI MIGUEL M Referring Unavailable LEYDI, MIGUEL M Primary Care Unavailable Leydi SEARCH ENGINE MARKETING MANAGER - DIANELYS, Miguel M Primary Care Provider Leydi SEARCH ENGINE MARKETING MANAGER - FEED PREPARATION OPERATOR, Miguel M Primary Care Provider Shona Lucio Primary Care Physician Yeison Sharpe SEARCH ENGINE MARKETING MANAGER - FEED PREPARATION OPERATOR, Miguel M Primary Care Provider Leydi SEARCH ENGINE MARKETING MANAGER - FEED PREPARATION OPERATOR, Miguel M Primary Care Provider LEYDI, MIGUEL [...] Primary Care Unavailable Unavailable Primary Care Provider Unavailabl e ADITYA CERVANTES Attending Unavailable BILLY, ADITYA Attending Unavailable LATASHA CARLTON Attending Unavailable BILLY, ADITYA Attending Unavailable BILLY, ADITYA Attending Unavailable LATASHA CARLTON Attending Unavailable BILLY, ADITYA Attending Unavailable BILLY, ADITYA Attending Unavailable BILLY, ADITYA Attending Unavailable Allergies Allergy Classification Reported Allergen(s) Allergy Type Date of Onset Reaction(s) Facility Aminoketones (4 sources) buPROPion; Translations: [Wellbutrin SR 100 MG Oral Tablet Extended Release 12 Hour] Drug Allergy 03-05-20 20 Wellbutrin SR [facility] Work Phone: Corticosteroids (6 sources) Triamcinolone Drug Allergy 10-14-19 14 Other (See Comments) [facility] Lisdexamfetamine (1 source) Lisdexamfetamine Drug Allergy 10-04-19 21 Vyvanse [facility] Work Phone: Naltrexone (4 sources) Naltrexone; Translations: [Naltrexone HCl 50 MG Oral Tablet] Drug Allergy 03-05-20 20 Naltrexone HCl [facility] Work Phone: (1 source) Triamcinolone; Translations: [TRIAMCINOLONE ACETONIDE] Drug Allergy 10-12-19 15 [facility] Rep[facility] (16 sources) Triamcinolone; Translations: [Kenalog] Drug Allergy 07-06-19 [facility] Work Phone: (8 sources) Triamcinolone Drug Allergy 10-14-19 14 Other (See Comments), Other, Hives [facility] [place] (17 sources) Poison spencer Allergy to substance 07-20-19 [facility] Work Phone: (3 sources) buPROPion; Translations: [Wellbutrin SR 100 MG Oral Tablet Extended Release 12 Hour] Drug Allergy 03-05-20 20 Wellbutrin SR [facility] Work Phone: (3 sources) Naltrexone; Translations: [Naltrexone HCl 50 MG Oral Tablet] Drug Allergy 03-05-20 20 Naltrexone HCl [facility] Work Phone: Medications Current Medications Medication [...] daily. 118 mL 1 12/17/2016 Active levonorgestrel 0.064350 mg/hr intrauterine system (17 sources) Progestin, Progestin-contai [...] 50 MG Oral Tablet 03/05/2020 Provider: 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 CNP Completed/Discontinued Medications Medication Drug Class(es) Dates [...] Oral Tablet 08/17/2019 - 09/14/2019 Provider: 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 CNP predniSONE 20 mg oral tablet (20 [...] UA Negative Negative - 4(70) +++ mg/dL [facility] Blood, UA Negative Negative - 50 Chuy/mcL [facility] Clarity, UA Clear [facility] Color, UA Yellow [facility] Glucose, UA Negative Negative - 1999(110) ++++ mg/dL [facility] Interpretation and review of laboratory results Normal [facility] Ketones, UA Positive Negative - 160(16) ++++ mg/dL [facility] Leukocytes, UA Negative Negative - 500+++ Sadi/mcL [facility] Nitrite, UA Negative Negative - Positive [facility] pH, UA 6.5 5 - 9 [facility] Protein, UA Negative Negative - 1999(20) ++++ mg/dL [facility] Spec Grav, UA 1.025 1 - 1.03 [facility] Urobilinogen, UA 0.2 0.2 - 12 mg/dL [facility] HCG, Quanton 05-12-2023 HCG, Quant 9701.0 mIU/mL High <5 [facility] Comment on above: Result Comment: Non-preg premeno <=5 Postmeno <=8 Male <=3 If HCG results do not concur with clinical observations, additional testing to confirm results is recommended. Performed By: #### B HCG #### [facility] [address] [place] [address] [place] [address] Plant Equipment Engineer: Mateusz Brand MD HCG, Quanton 05-07-2023 HCG, Quant 3514.0 mIU/mL High <5 [facility] Comment on above: Result Comment: Non-preg premeno <=5 Postmeno <=8 Male <=3 If HCG results do not concur with clinical observations, additional testing to confirm results is recommended. Performed By: #### B HCG #### [facility] [address] [place] [address] Plant Equipment Engineer: Mateusz Brand MD HCG, Quanton 05-05-2023 HCG, Quant 2224.0 mIU/mL High <5 [facility] Comment on above: Result Comment: Non-preg premeno <=5 Postmeno <=8 Male <=3 If HCG results do not concur with clinical observations, additional testing to confirm results is recommended. Performed By: #### B HCG #### [facility] [address] [place] [address] Plant Equipment Engineer: Mateusz Brand MD US PELVIS COMPLETE NON-OB [...] Yousif Lamb MD 03/25/23 Final result Normal [facility] CBC with Diffon 03-24-2023 Abs. Basophil 0.06 k/uL Normal 0.00-0.20 [facility] Comment on above: Performed By: #### C DP, BHCG #### [address] [place], [place] [id number] Plant Equipment Engineer: Mateusz Brand MD Abs.Imm.Granulocyte 0.03 k/uL Normal 0.00-0.30 [facility] Comment on above: Performed By: #### C TJ MarisaG #### [address] [place], [place] [address] Plant Equipment Engineer: Mateusz Brand MD Abs.Neutrophil (Seg) 7.07 k/uL Normal 1.50-8.10 [facility] Comment on above: Performed By: #### C TJ ANGELICA #### [address] [place], [facility]83 Plant Equipment Engineer: Mateusz Brand MD Basophils/100 WBC (Bld) 1 % Normal 0-2 [facility] Comment on above: Performed By: #### C TJ [facility] #### [address] [place], [place] [address] Plant Equipment Engineer: Mateusz Brand MD Eosinophils (Bld) [#/Vol] 0.13 10*3/uL Normal 0.00-0.44 [facility] Comment on above: Performed By: #### C TJ ANGELICA #### [address] [place], [facility]83 Plant Equipment Engineer: Mateusz Brand MD Eosinophils/100 WBC (Bld) 1 % Normal 1-4 [facility] Comment on above: Performed By: #### C TJ ANGELICA #### [address] [place] [id number] Plant Equipment Engineer: Mateusz Brand MD Erythrocyte distribution width (RBC) [Ratio] 11.9 % Normal 11.8-14.4 [facility] Comment on above: Performed By: #### C TJ ANEGLICA #### [address] [place], [facility] Plant Equipment Engineer: Mateusz Brand MD Hematocrit (Bld) [Volume fraction] 37.8 % Normal 36.3-47.1 [facility] Comment on above: Performed By: #### C TJ, [facility] #### [facility] [address] [place] [facility] Plant Equipment Engineer: Mateusz Brand MD Hemoglobin (Bld) [Mass/Vol] 13.3 g/dL Normal 11.9-15.1 [facility] Comment on above: Performed By: #### C TJ, CG #### [address] [place], [place] [address] Plant Equipment Engineer: Mateusz Brand MD Immature granulocytes/100 WBC (Bld) 0 % Normal 0 [facility] Comment on above: Performed By: #### C [facility]J [facility] #### [address] [place], [place] [address] Plant Equipment Engineer: Mateusz Brand MD Lymphocytes (Bld) [#/Vol] 3.03 10*3/uL Normal 1.10-3.70 [facility] Comment on above: Performed By: #### C TJ, [facility] #### [address] [place] [facility] Plant Equipment Engineer: Mateusz Brand MD Lymphocytes/100 WBC (Bld) 28 % Normal 24-43 [facility] Comment on above: Performed By: #### C TJ, CG #### [address] [place], [facility]83 Plant Equipment Engineer: Mateusz Brand MD MCH (RBC) [Entitic mass] 28.6 pg Normal 25.2-33.5 [facility] Comment on above: Performed By: #### C TJ, BHCG #### [facility] [address] [place] [address] Dr. Hernandez [facility]83 Plant Equipment Engineer: Mateusz Brand MD MCHC (RBC) [Mass/Vol] 35.2 g/dL High 28.4-34.[address] [facility] Comment on above: Performed By: #### C TJ [facility] #### [address] [place] [address] Plant Equipment Engineer: Mateusz Brand MD MCV (RBC) [Entitic vol] 81.3 fL Low 82.6-102.9 [facility] Comment on above: Performed By: #### C TJ [facility] #### [address] [place] [address] Plant Equipment Engineer: Mateusz Brand MD Monocytes (Bld) [#/Vol] 0.60 10*3/uL Normal 0.10-1.20 [facility] Comment on above: Performed By: #### C TJ MarisaG #### [address] [place] [address] Plant Equipment Engineer: Mateusz Brand MD Monocytes/100 WBC (Bld) 6 % Normal 3-12 [facility] Comment on above: Performed By: #### C TJ [facility] #### [address] [place] [address] Plant Equipment Engineer: Mateusz Brand MD Neutrophil (Seg) 64 % Normal 36-65 [facility] Comment on above: Performed By: #### C [facility]J [facility] #### [address] [place] [address] Plant Equipment Engineer: Mateusz Brand MD NRBC Automated 0.0 per 100 WBC Normal 0.0 [facility] Comment on above: Performed By: #### C TJ [facility] #### [address] [place], [place] [phone] Plant Equipment Engineer: Mateusz Brand MD Platelet mean volume (Bld) [Entitic vol] 10.6 fL Normal 8.1-13.5 [facility] Comment on above: Performed By: #### C DP, BHCG #### [facility] [address] [place], [place] [id number] Plant Equipment Engineer: Mateusz Brand MD Platelets (Bld) [#/Vol] 231 10*3/uL Normal 138-453 [facility] Comment on above: Performed By: #### C DP, BHCG #### [facility] [address] [place], [place] [id number] Plant Equipment Engineer: Mateusz Brand MD RBC (Bld) [#/Vol] 4.65 10*6/uL Normal 3.95-5.11 [facility] Comment on above: Performed By: #### C DP, BHCG #### [facility] [address] [place], [place] [id number] Plant Equipment Engineer: Mateusz Brand MD WBC (Bld) [#/Vol] 10.9 10*3/uL Normal 3.5-11.3 [facility] Comment on above: Performed By: #### C DP, BHCG #### [address] [place], [place] [id number] Plant Equipment Engineer: Mateusz Brand MD HCG, Quanton 03-24-2023 HCG, Quant <1.0 Normal <5 [facility] Comment on above: Result Comment: Non-preg premeno <=5 Postmeno <=8 Male <=3 If HCG results do not concur with clinical observations, additional testing to confirm results is recommended. Performed By: #### C DP, BHCG #### [facility] [address] [place], [place] [phone] Plant Equipment Engineer: Mateusz Brand MD HCG, ,Urineon 01-20 Beta HCG ( test) Ql (U) Negative Normal NEG [facility] Comment on above: Result Comment: Spec imens with hCG levels near the threshold of the test (25 mIU/mL) may give a negative or indeterminate result. In such cases, another test should be performed with a new specimen in 48-72 hours. If early is suspected clinically in this setting, correlation with quantitative serum b-hCG level is suggested. [employer] has confirmed the use of plasma for this test. This has not been cleared or approved by the U.S. Food and Drug Administration. The FDA has determined that such clearance is not necessary. Performed By: #### U HCG #### [address] [place] [address] Plant Equipment Engineer: Mateusz Brand MD OPERATIVE REPORTon 3 OPERATIVE REPORT [address] [address] OPERATIVE REPORT PATIENT NAME: ESTEFANIA FLOREZ : 1995 MED REC NO: [id number] ROOM: ACCOUNT NO: [id number] ADMIT DATE: 01/20/2023 PROVIDER: Vickie Nichols MD [...] cervix in a graduated fashion to #14 Cymro with Adeel dilators. Then, the hysteroscope was [...] good condition. 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 GYNECOLOGIC CYTOLOGY REPORT Patient Name: ALFREDO FLOREZARCENIO [facility] Rec: [id number] [facility] [employer] ANATOMIC PATHOLOGY [address] [place] [address]. [place] [phone] Normal [facility] C-Reactive Proteinon 022 CRP [Mass/Vol] mg/L 0 - 5 mg/L [facility] [employer] [facility] CBC with Auto Differentialon 12-16-2021 Absolute Eos # 0.09 [facility] Absolute Immature Granulocyte 0.[address] [facility] Absolute Lymph # 2.98 [facility] Absolute [place] # 0.51 [facility] [employer] Basophils (Bld) [#/Vol] 0.04 10*3/uL [facility] Basophils/100 WBC (Bld) 0 % 0 - 2 % [facility] Eosinophils/100 WBC (Bld) 1 % 1 - 4 % [facility] Hematocrit (Bld) [Volume fraction] 39.6 % 36.3 - 47.1 % [facility] Hemoglobin (Bld) [Mass/Vol] 13.1 g/dL 11.9 - 15.1 g/dL [facility] Immature granulocytes/100 WBC (Bld) 0 % [address] [facility] Lymphocytes/100 WBC (Bld) 33 % 24 - 43 % [facility] MCH (RBC) [Entitic mass] 28.2 pg 25.2 - 33.[address] [facility] MCHC (RBC) [Mass/Vol] 33.1 g/dL 28.4 - 34.8 g/dL [facility] MCV (RBC) [Entitic vol] 85.3 fL 82.6 - 102.[address] [facility] Monocytes/100 WBC (Bld) 6 % 3 - 12 % [facility] NRBC Automated 0.0 0.0 per [address] [facility] Platelet distribution width (Bld) [Ratio] 12.0 % 11.8 - 14.4 % [facility] Platelet mean volume (Bld) [Entitic vol] 11.1 fL 8.1 - 13.[address] [facility] Platelets (Bld) [#/Vol] 214 10*3/uL [facility] RBC (Bld) [#/Vol] 4.64 10*6/uL 3.95 - 5.1 1 m/uL [facility] Segmented neutrophils/100 WBC (Bld) 60 % 36 - 65 % [facility] Segs Absolute 5.[address] [facility] WBC (Bld) [#/Vol] 9.2 10*3/uL [facility] Rheumatoid Factoron 12-17-19 22 Rheumatoid Factor <10 [facility] Sedimentation Rateon 022 Sed Rate 5 [facility] Uric Acidon 12-16-2021 Urate [Mass/Vol] 4.2 mg/dL 2.4 - 5.7 mg/dL [facility] [employer] [facility] [employer] Basic Metabolic Panel w/ Ref yossi to MGOrdered By: Donny Hatfield on 10-15-2020 Anion gap [Moles/Vol] 13 mmol/L 9 - 17 mmol/L [employer] Phone: Calcium [Mass/Vol] 9.6 mg/dL 8.6 - 10. 4 mg/dL [employer] Phone: Chloride [Moles/Vol] 105 mmol/L 98 - 10 7 mmol/L [employer] Phone: CO2 [Moles/Vol] 22 mmol/L 20 - 31 mmol/L [employer] Phone: Creatinine [Mass/Vol] 0.62 mg/dL 0.50 - 0.90 mg/dL [employer] Phone: GFR >60 >60 mL/min [employer] Phone: GFR Non- >60 >60 mL/min [employer] Phone: Glucose [Mass/Vol] 110 mg/dL High 70 - 99 mg/dL [employer] Phone: Interpretation and review of laboratory results Abnormal [employer] Phone: Potassium [Moles/Vol] 3.5 mmol/L Low 3.7 - 5.3 mmol/L [employer] Phone: Sodium [Moles/Vol] 140 mmol/L 135 - 144 mmol/L [employer] Phone: Urea nitrogen (BldV) [Mass/Vol] 12 mg/dL 6 - 20 mg/dL [employer] Phone: Urea nitrogen/Creatinine (Bld) [Mass ratio] 19 [employer] Phone: [employer] Phone: CBC Auto DifferentialOrdered By: Donny Hatfield on 10-15-2020 Absolute Eos # 0.19 [employer] [facility] Work Phone: Absolute Immature Granulocyte 0.06 [employer] Work Phone: Absolute Lymph # 2.50 [employer] [facility] Work Phone: Absolute [place] # 0.75 [employer] [facility] Work Phone: Basophils (Bld) [#/Vol] 0.04 10*3/uL [employer] Work Phone: Basophils/100 WBC (Bld) 0 % 0 - 2 % [employer] Phone: Differential Type NOT REPORTED [employer] Phone: Eosinophils/100 WBC (Bld) 1 % 1 - 4 % [employer] Phone: Hematocrit (Bld) [Volume fraction] 42.1 % 36.3 - 47.1 % [employer] Phone: Hemoglobin.gastrointes tinal spec 1 Ql (Stl) 14.0 g/dL 11.9 - 15.1 g/dL [employer] Phone: Immature granulocytes/100 WBC (Bld) 0 % 0 [employer] Phone: Interpretation and review of laboratory results Abnormal [employer] Phone: Lymphocytes/100 WBC (Bld) 14 % Low 24 - 43 % [employer] Phone: MCH (RBC) [Entitic mass] 28.1 pg 25.2 - 33.5 pg [employer] Phone: MCHC (RBC) [Mass/Vol] 33.3 g/dL 28.4 - 34.8 g/dL [employer] Phone: MCV (RBC) [Entitic vol] 84.4 fL 82.6 - 102.9 fL [employer] Phone: Monocytes/100 WBC (Bld) 4 % 3 - 12 % [employer] Phone: NRBC Automated 0.0 0.0 per 100 WBC [employer] Phone: Platelet distribution width (Bld) [Ratio] 11.9 % 11.8 - 14.4 % [employer] Phone: Platelet Estimate NOT REPORTED [employer] Phone: Platelet mean volume (Bld) [Entitic vol] 10.7 fL 8.1 - 13.5 fL [employer] Phone: Platelets (Bld) [#/Vol] 220 10*3/uL [employer] Phone: RBC (Bld) [#/Vol] 4.99 10*6/uL 3.95 - 5.1 1 m/uL [employer] Phone: RBC (Bld) [#/Vol] NOT REPORTED [employer] Phone: Segmented neutrophils/100 WBC (Bld) 81 % High 36 - 65 % [employer] Phone: Segs Absolute 14.20 [employer] Work Phone: WBC (Bld) [#/Vol] 17.7 10*3/uL [employer] Work Phone: WBC (Bld) [#/Vol] NOT REPORTED [employer] Phone: [employer] Phone: CT ABDOMEN PELVIS W IV CONTR AST Additional Contrast? NoneOrdered By: Donny Hatfield on 10-15-2020 1. Marked hepatic steatosis. 2. Hepatomegaly. 3. Mild colonic diverticulosis without evidence of diverticulitis. [employer] Phone: EXAMINATION: CT OF T HE ABDOMEN [...] subcutaneous soft tissues are unremarkable in appearance. [employer] Work Phone: Jean Marie, [facility] Incoming Radiant Results From [facility] - 10/15/2020 1:48 AM EDT EXAMINATION: CT [...] Mild colonic diverticulosis without evidence of diverticulitis. [employer] Phone: [employer] Phone: HCG Qualitative, SerumOrdere d By: Donny RHLvision Technologiesnalini on 10-15-2020 hCG Qual Negative NEGATIVE [employer] Phone: Comment on above: Specimens with hCG l evels near the threshold of the test (25 mIU/mL) may give a negative or indeterminate result. In such cases, another test should be performed with a new specimen in 48-72 hours. If early is suspected clinically in this setting, correlation with quantitative serum b-hCG level is suggested. [employer] has confirmed the use of plasma for this test. This has not been cleared or approved by the U.S. Food and Drug Administration. The FDA has determined that such clearance is not necessary. [employer] Phone: Hepatic Function PanelOrdere d By: Donny Hatfield on 10-15-2020 Albumin [Mass/Vol] 4.6 g/dL 3.5 - 5.2 g/dL [employer] Phone: Albumin/Globulin [Mass ratio] 1.6 {ratio} [employer] Phone: ALP (Bld) [Catalytic activity/Vol] 59 U/L 35 - 104 U/L [employer] Phone: ALT [Catalytic activity/Vol] 38 U/L High 5 - 33 U/L [employer] Phone: AST [Catalytic activity/Vol] 24 U/L <32 [employer] Phone: Bilirubin [Mass/Vol] 0.48 mg/dL 0.3 - 1 .2 mg/dL [employer] Phone: Bilirubin, Indirect CANNOT BE CALCULATED 0.00 - 1.00 mg/dL [employer] Phone: Bilirubin.indirect [Mass/Vol] mg/dL <0.31 mg/dL [employer] Phone: Free PSA/Total PSA [Mass fraction] 7.4 g/dL 6.4 - 8.3 g/dL [employer] Phone: Globulin NOT REPORTED 1.5 - 3.8 g/dL [employer] Phone: Interpretation and review of laboratory results Abnormal [employer] Phone: Laboratory - Chemistry and C hemistry - challengeOrdered By: Donny Hatfield on 10-15-2020 GFR/1.73 sq M.predicted MDRD (S/P/Bld) [Vol rate/Area] [employer] Phone: Comment on above: Average GFR for 20-2 9 years old: 116 mL/min/1.73sq m Chronic Kidney Disease: <60 mL/min/1.73sq m Kidney failure: <15 mL/min/1.73sq m eGFR calculated using average adult body mass. Additional eGFR calculator available at: http://www.YouFig/multiple_crcl_2012.htm Stage 1: Some kidney damage normal GFR Stage 2: Mild kidney damage GFR 60-89 Stage 3: Moderate kidney damage GFR 30-59 Stage 4: Severe kidney damage GFR 15-29 Stage 5: Severe kidney damage GFR <15 ESRD - chronic treatment by dialysis or transplant Lactic Acid, PlasmaOrdered B y: Donny Hatfield on 10-15-2020 Lactate [Moles/Vol] 1.1 mmol/L 0.5 - 2. 2 mmol/L [employer] Work Phone: Lactic Acid, Whole Blood NOT REPORTED 0.7 - 2.1 mmol/L [employer] Phone: [employer] Phone: LipaseOrdered By: Cuco on 10-15-2020 Lipase [Catalytic activity/Vol] 27 U/L 13 - 60 U/L [employer] Phone: MagnesiumOrdered By: Donny Hatfield on 10-15-2020 Magnesium [Mass/Vol] 1.8 mg/dL 1.6 - 2 .6 mg/dL [employer] Phone: [employer] Phone: Microscopic UrinalysisOrdere d By: Donny Hatfield on 10-15-2020 - [employer] Work Phone: Amorphous, UA NOT REPORTED None [employer] [facility] Work Phone: Bacteria, UA 1+ Abnormal None [employer] Work Phone: Casts UA NOT REPORTED /LPF [employer] Work Phone: Crystals, UA NOT REPORTED None /HPF [employer] [facility] Work Phone: Epithelial Cells UA 2 TO 5 [employer] Work Phone: Interpretation and review of laboratory results Abnormal [employer] Work Phone: Mucus, UA 1+ Abnormal None [facility] Work Phone: Other Observations UA NOT REPORTED NOT REQ. [facility] Work Phone: RBC, UA 2 TO 5 [facility] Work Phone: Renal Epithelial, UA NOT REPORTED 0 /HPF [facility] Work Phone: Trichomonas, UA NOT REPORTED None [facility] Work Phone: WBC, UA 0 TO 2 [facility] Work Phone: Yeast, UA NOT REPORTED None [facility] Work Phone: [facility] Work Phone: No Panel InformationOrdered By: Donny Hatfield on 10-15-2020 [facility] [employer] Work Phone: Urinalysis Reflex to Culture Ordered By: Donny Hatfield on 10-15-2020 Bilirubin Urine Negative NEGATIVE [facility] Work Phone: Color, UA YELLOW YELLOW [facility] [employer] Work Phone: Glucose, Ur Negative NEGATIVE [facility] Work Phone: Interpretation and review of laboratory results Abnormal [facility] Work Phone: Ketones Ql (U) Negative NEGATIVE [facility] Work Phone: Leukocyte esterase Test strip Ql (U) Negative NEGATIVE [facility] Work Phone: Nitrite, Urine Negative NEGATIVE [facility] Work Phone: pH, UA 5.[address] [facility] Work Phone: Protein, UA Negative NEGATIVE [facility] Work Phone: Specific [place], UA 1.010 [facility] [employer] Work Phone: Turbidity UA CLEAR CLEAR [facility] Work Phone: Urinalysis Comments NOT REPORTED [facility] Work Phone: Urine Hgb 2+ Abnormal NEGATIVE [employer] Phone: Urobilinogen, Urine Normal Normal [facility]: [employer] Phone: Comp Metabolic Profon 2020 (cont.) Normal [facility] Comment on above: Result Comment: Aver age GFR for 20-29 years old: 116 mL/min/1.73sq m Chronic Kidney Disease: <60 mL/min/1.73sq m Kidney failure: <15 mL/min/1.73sq m eGFR calculated using average adult body mass. Additional eGFR calculator available at: http://www.YouFig/kooaba_crcl_2011.htm Performed By: #### L IPRF, CDP, CP, TSHX #### [facility] [address] [place] [phone] Plant Equipment Engineer: Chato Aguirre MD Albumin [Mass/Vol] 4.3 g/dL Normal 3.5-5.2 [facility] Comment on above: Performed By: #### L IPRF, CDP, CP, TSHX #### [facility] [address] [place] [address] Plant Equipment Engineer: Chato Aguirre MD Albumin/Glob Ratio 1.3 Normal 1.0-2.5 [facility] Comment on above: Performed By: #### L IPRF, CDP, CP, TSHX #### [employer] [address] [place] [address]84 Plant Equipment Engineer: Chato Aguirre MD Alkaline Phos 49 U/L Normal 35-104 [facility] Comment on above: Performed By: #### L IPRF, CDP, CP, TSHX #### [facility] [address] [place] [phone] Plant Equipment Engineer: Chato Aguirre MD ALT [Catalytic activity/Vol] 36 U/L High 5-33 [facility] Comment on above: Performed By: #### L IPRF, CDP, CP, TSHX #### [facility] [employer] [address] [place] [address] Plant Equipment Engineer: Chato Aguirre MD Anion gap [Moles/Vol] 11 mmol/L Normal 9-17 [facility] Comment on above: Performed By: #### L IPRF, CDP, CP, TSHX #### [address] [address] Plant Equipment Engineer: Chato Aguirre MD AST [Catalytic activity/Vol] 27 U/L Normal <32 [facility] Comment on above: Performed By: #### L IPRF, CDP, CP, TSHX #### [address] [address] Plant Equipment Engineer: Chato Aguirre MD Bilirubin [Mass/Vol] 0.34 mg/dL Normal 0.3-1.2 [facility] Comment on above: Performed By: #### L IPRF, CDP, CP, TSHX #### [address] [address] Plant Equipment Engineer: Chato Aguirre MD Calcium [Mass/Vol] 9.5 mg/dL Normal 8.6-10.4 [facility] Comment on above: Performed By: #### L IPRF, CDP, CP, TSHX #### [address] [address] Plant Equipment Engineer: Chato Aguirre MD Chloride [Moles/Vol] 102 mmol/L Normal 98-107 [facility] Comment on above: Performed By: #### L IPRF, CDP, CP, TSHX #### [facility] [employer] [address] [place] [address] Plant Equipment Engineer: Chato Aguirre MD CO2 [Moles/Vol] 22 mmol/L Normal 20-31 [facility] Comment on above: Performed By: #### L IPRF, CDP, CP, TSHX #### [address] [address] Plant Equipment Engineer: Chato Aguirre MD Creatinine [Mass/Vol] 0.46 mg/dL Low 0.50-0.90 [facility] Comment on above: Performed By: #### L IPRF, CDP, CP, TSHX #### [address] [address] Plant Equipment Engineer: Chato Aguirre MD GFR, Amer >60 Normal >60 [facility] Comment on above: Performed By: #### L IPRF, CDP, CP, TSHX #### [address] [address] Plant Equipment Engineer: Chato Aguirre MD GFR,non Amer >60 Normal >60 [facility] Comment on above: Performed By: #### L IPRF, CDP, CP, TSHX #### [address] [address] Plant Equipment Engineer: Chato Aguirre MD Glucose [Mass/Vol] 92 mg/dL Normal 70-99 [facility] Comment on above: Performed By: #### L IPRF, CDP, CP, TSHX #### [address] [address] Plant Equipment Engineer: Chato Aguirre MD Potassium [Moles/Vol] 4.2 mmol/L Normal 3.7-5.3 [facility] Comment on above: Performed By: #### L IPRF, CDP, CP, TSHX #### [facility] [employer] [address] [place] [address] Plant Equipment Engineer: Chato Aguirre MD Protein [Mass/Vol] 7.5 g/dL Normal 6.4-8.3 [facility] Comment on above: Performed By: #### L IPRF, CDP, CP, TSHX #### [facility] [employer] [address] [place] [address] Plant Equipment Engineer: Chato gAuirre MD Sodium [Moles/Vol] 135 mmol/L Normal 135-144 [facility] Comment on above: Performed By: #### L IPRF, CDP, CP, TSHX #### [employer] [address] [place] [address] Plant Equipment Engineer: Chato Aguirre MD Urea nitrogen [Mass/Vol] 11 mg/dL Normal 6-20 [facility] Comment on above: Performed By: #### L IPRF, CDP, CP, TSHX #### [employer] [address] [place] [address] Plant Equipment Engineer: Chato Aguirre MD Lipid Prof, Fastingon 2020 Cholesterol [Mass/Vol] 186 mg/dL Normal <200 [facility] Comment on above: Result Comment: Cholesterol Guidelines: <200 Desirable 200-240 Borderline >240 Undesirable Performed By: #### L IPRF, CDP, CP, TSHX #### [employer] [address] [place] [address] Plant Equipment Engineer: Chato Aguirre MD Cholesterol in HDL [Mass/Vol] 49 mg/dL Normal >40 [facility] Comment on above: Result Comment: HDL Guidelines: <40 Undesirable 40-59 Borderline >59 Desirable Performed By: #### L IPRF, CDP, CP, TSHX #### [employer] [address] [place] [address] Plant Equipment Engineer: Chato Aguirre MD Cholesterol in LDL [Mass/Vol] 102 mg/dL Normal 0-130 [facility] Comment on above: Result Comment: LDL Guidelines: <100 Desirable 100-129 Near to/above Desirable 130-159 Borderline >159 Undesirable Direct (measured) LDL and calculated LDL are not interchangeable tests. Performed By: #### L IPRF, CDP, CP, TSHX #### [employer] [address] [place] [address] Plant Equipment Engineer: Chato Aguirre MD Cholesterol.total/Chol esterol in HDL [Mass ratio] 3.8 {ratio} Normal <5 [facility] Comment on above: Performed By: #### L IPRF, CDP, CP, TSHX #### [employer] [address] [place] [address] [phone] Plant Equipment Engineer: Chato Aguirre MD Triglyceride,Fasting 173 mg/dL High <150 [facility] Comment on above: Result Comment: Triglyceride Guidelines: <150 Desirable 150-199 Borderline 200-499 High >499 Very high Based on AHA Guidelines for fasting triglyceride, February 2012. Performed By: #### L IPRF, CDP, CP, TSHX #### [facility] [address] [place] [address] [phone] Plant Equipment Engineer: Chato Aguirre MD TSH w/reflex to FT4on 2020 TSH Qn 3.38 m[IU]/L Normal 0.30-5.00 [facility] Comment on above: Performed By: #### L IPRF, CDP, CP, TSHX #### [facility] [address] [place] [address] Plant Equipment Engineer: Chtao Aguirre MD CBC Auto DifferentialOrdered By: 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 on 09-23-2020 [employer] # 0.14 [employer] [facility] Work Phone: Absolute Immature Granulocyte <0.03 [employer] Work Phone: Absolute Lymph # 2.71 @[employer] [facility] Work Phone: Absolute [place] # 0.48 @[facility] Work Phone: Basophils (Bld) [#/Vol] 0.05 10*3/uL [employer] Work Phone: Basophils/100 WBC (Bld) 1 % 0 - 2 % [employer] Work Phone: Differential Type NOT REPORTED [facility] Phone: Eosinophils/100 WBC (Bld) 2 % 1 - 4 % [employer] Phone: Hematocrit (Bld) [Volume fraction] 42.9 % 36.3 - 47.1 % [employer] Phone: Hemoglobin.gastrointes tinal spec 1 Ql (Stl) 13.5 g/dL 11.9 - 15.1 g/dL [employer] Phone: Immature granulocytes/100 WBC (Bld) 0 % 0 [employer] Phone: Lymphocytes/100 WBC (Bld) 30 % 24 - 43 % [employer] Phone: MCH (RBC) [Entitic mass] 27.6 pg 25.2 - 33.5 pg [employer] Phone: MCHC (RBC) [Mass/Vol] 31.5 g/dL 28.4 - 34.8 g/dL [employer] Phone: MCV (RBC) [Entitic vol] 87.6 fL 82.6 - 102.9 fL [employer] Phone: Monocytes/100 WBC (Bld) 5 % 3 - 12 % [employer] Phone: NRBC Automated 0.0 0.0 per 100 WBC [employer] Phone: Platelet distribution width (Bld) [Ratio] 12.4 % 11.8 - 14.4 % [employer] Phone: Platelet Estimate NOT REPORTED [employer] Phone: Platelet mean volume (Bld) [Entitic vol] 11.6 fL 8.1 - 13.5 fL [employer] Phone: Platelets (Bld) [#/Vol] 246 10*3/uL [employer] Phone: RBC (Bld) [#/Vol] 4.90 10*6/uL 3.95 - 5.1 1 m/uL [employer] Phone: RBC (Bld) [#/Vol] NOT REPORTED [employer] Phone: Segmented neutrophils/100 WBC (Bld) 62 % 36 - 65 % [employer] Work Phone: Segs [employer] Work Phone: WBC (Bld) [#/Vol] 9.2 10*3/uL [employer] Work Phone: WBC (Bld) [#/Vol] NOT REPORTED [employer] Phone: CBC with Diffon 09-23-2020 Abs. Basophil 0.05 k/uL Normal 0.00-0.20 [facility] Comment on above: Performed By: #### L IPRF, CDP, CP, TSHX #### [facility] [employer] [address] [place] [address] Plant Equipment Engineer: Chato Aguirre MD Abs.Imm.Granulocyte <0.03 Normal 0.00-0.30 [facility] Comment on above: Performed By: #### L IPRF, CDP, CP, TSHX #### [employer] [address] [place] [address] Plant Equipment Engineer: Chato Aguirre MD Abs.Neutrophil (Seg) 5.79 k/uL Normal 1.50-8.10 [facility] Comment on above: Performed By: #### L IPRF, CDP, CP, TSHX #### [employer] [address] [place] [address] Plant Equipment Engineer: Chato Aguirre MD Basophils/100 WBC (Bld) 1 % Normal 0-2 [facility] Comment on above: Performed By: #### L IPRF, CDP, CP, TSHX #### [facility] [address] [place] [address] Plant Equipment Engineer: Chato Aguirre MD Eosinophils (Bld) [#/Vol] 0.14 10*3/uL Normal 0.00-0.44 [facility] Comment on above: Performed By: #### L IPRF, CDP, CP, TSHX #### [facility] [employer] [address] [place] [address] Plant Equipment Engineer: Chato Aguirre MD Eosinophils/100 WBC (Bld) 2 % Normal 1-4 [facility] Comment on above: Performed By: #### L IPRF, CDP, CP, TSHX #### [facility] [employer] [address] [place] [address] Plant Equipment Engineer: Chato Aguirre MD Erythrocyte distribution width (RBC) [Ratio] 12.4 % Normal 11.8-14.4 [facility] Comment on above: Performed By: #### L IPRF, CDP, CP, TSHX #### [facility] [employer] [address] [place] [address] 33767 Plant Equipment Engineer: Chato Aguirre MD Hematocrit (Bld) [Volume fraction] 42.9 % Normal 36.3-47.1 [facility] Comment on above: Performed By: #### L IPRF, CDP, CP, TSHX #### [facility] [employer] [address] [place] [address] 31954 Plant Equipment Engineer: Chato Aguirre MD Hemoglobin (Bld) [Mass/Vol] 13.5 g/dL Normal 11.9-15.1 [facility] Comment on above: Performed By: #### L IPRF, CDP, CP, TSHX #### [facility] [employer] [address] [place] [address] 11459 Plant Equipment Engineer: Chato Aguirre MD Immature granulocytes/100 WBC (Bld) 0 % Normal 0 [facility] Comment on above: Performed By: #### L IPRF, CDP, CP, TSHX #### [facility] [employer] [address] [place] [phone] Plant Equipment Engineer: Chato Aguirre MD Lymphocytes (Bld) [#/Vol] 2.71 10*3/uL Normal 1.10-3.70 [facility] Comment on above: Performed By: #### L IPRF, CDP, CP, TSHX #### [address] [address] Plant Equipment Engineer: Chato Aguirre MD Lymphocytes/100 WBC (Bld) 30 % Normal 24-43 [facility] Comment on above: Performed By: #### L IPRF, CDP, CP, TSHX #### [address] [address] Plant Equipment Engineer: Chato Aguirre MD MCH (RBC) [Entitic mass] 27.6 pg Normal 25.2-33.5 [facility] Comment on above: Performed By: #### L IPRF, CDP, CP, TSHX #### [place] [address] Plant Equipment Engineer: Chato Aguirre MD MCHC (RBC) [Mass/Vol] 31.5 g/dL Normal 28.4-34.8 [facility] Comment on above: Performed By: #### L IPRF, CDP, CP, TSHX #### [place] [address] Plant Equipment Engineer: Chato Aguirre MD MCV (RBC) [Entitic vol] 87.6 fL Normal 82.6-102.9 [facility] Comment on above: Performed By: #### L IPRF, CDP, CP, TSHX #### [place] [address] Plant Equipment Engineer: Chato Aguirre MD Monocytes (Bld) [#/Vol] 0.48 10*3/uL Normal 0.10-1.20 [facility] Comment on above: Performed By: #### L IPRF, CDP, CP, TSHX #### [address] [address] Plant Equipment Engineer: Chato Aguirre MD Monocytes/100 WBC (Bld) 5 % Normal 3-12 [facility] Comment on above: Performed By: #### L IPRF, CDP, CP, TSHX #### [address] [address] Plant Equipment Engineer: Chato Aguirre MD Neutrophil (Seg) 62 % Normal 36-65 [facility] Comment on above: Performed By: #### L IPRF, CDP, CP, TSHX #### [address] [address] Plant Equipment Engineer: Chato Aguirre MD NRBC Automated 0.0 per 100 WBC Normal 0.0 [facility] Comment on above: Performed By: #### L IPRF, CDP, CP, TSHX #### [address] [address] Plant Equipment Engineer: Chato Aguirre MD Platelet mean volume (Bld) [Entitic vol] 11.6 fL Normal 8.1-13.5 [facility] Comment on above: Performed By: #### L IPRF, CDP, CP, TSHX #### [address] [address] Plant Equipment Engineer: Chato Aguirre MD Platelets (Bld) [#/Vol] 246 10*3/uL Normal 138-453 [facility] Comment on above: Performed By: #### L IPRF, CDP, CP, TSHX #### [address] [address] Plant Equipment Engineer: Chato Aguirre MD RBC (Bld) [#/Vol] 4.90 10*6/uL Normal 3.95-5.11 [facility] Comment on above: Performed By: #### L IPRF, CDP, CP, TSHX #### [address] [place] [address] Plant Equipment Engineer: Chato Aguirre MD WBC (Bld) [#/Vol] 9.2 10*3/uL Normal 3.5-11.3 [facility] Comment on above: Performed By: #### L IPRF, CDP, CP, TSHX #### [address] [address] Plant Equipment Engineer: Chato Aguirre MD Auto Diff Performed NOT REPORTED Normal [facility] Comment on above: Performed By: #### L IPRF, CDP, CP, TSHX #### [address] [address] Plant Equipment Engineer: Chato Aguirre MD Platelet Estimate NOT REPORTED Normal [facility] Comment on above: Performed By: #### L IPRF, CDP, CP, TSHX #### [address] [address] Plant Equipment Engineer: Chato Aguirre MD RBC morphology finding Nom (Bld) NOT REPORTED Normal [facility] Comment on above: Performed By: #### L IPRF, CDP, CP, TSHX #### [facility] [employer] [address] [place] [address] Plant Equipment Engineer: Chato Aguirre MD WBC Morphology NOT REPORTED Normal [facility] Comment on above: Performed By: #### L IPRF, CDP, CP, TSHX #### [facility] [address] [place] [address] Plant Equipment Engineer: Chato Aguirre MD Comp Metabolic Profon 2020 BUN/CRE Ratio NOT REPORTED Normal 02-17 [facility] Comment on above: Performed By: #### L IPRF, CDP, CP, TSHX #### [facility] [address] [place] [address] Plant Equipment Engineer: Chato Aguirre MD Staging: NOT REPORTED Normal [facility] Comment on above: Performed By: #### L IPRF, CDP, CP, TSHX #### [employer] [address] [phone] Plant Equipment Engineer: Chato Aguirre MD Comprehensive Metabolic Pane lOrdered By: 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 on 09-23-2020 Albumin [Mass/Vol] 4.3 g/dL 3.5 - 5.2 g/dL [employer] Phone: Albumin/Globulin [Mass ratio] 1.3 {ratio} [employer] Phone: ALP (Bld) [Catalytic activity/Vol] 49 U/L 35 - 104 U/L [employer] Phone: ALT [Catalytic activity/Vol] 36 U/L High 5 - 33 U/L [employer] Phone: Anion gap [Moles/Vol] 11 mmol/L 9 - 17 mmol/L [employer] Phone: AST [Catalytic activity/Vol] 27 U/L <32 [employer] Phone: Bilirubin [Mass/Vol] 0.34 mg/dL 0.3 - 1 .2 mg/dL [employer] Phone: Calcium [Mass/Vol] 9.5 mg/dL 8.6 - 10. 4 mg/dL [employer] Phone: Chloride [Moles/Vol] 102 mmol/L 98 - 10 7 mmol/L [employer] Phone: CO2 [Moles/Vol] 22 mmol/L 20 - 31 mmol/L [employer] Phone: Creatinine [Mass/Vol] 0.46 mg/dL Low 0.50 - 0.90 mg/dL [employer] Phone: Free PSA/Total PSA [Mass fraction] 7.5 g/dL 6.4 - 8.3 g/dL [employer] Phone: GFR >60 >60 mL/min [employer] Phone: GFR Non- >60 >60 mL/min [employer] Phone: GFR/1.73 sq M.predicted MDRD (S/P/Bld) [Vol rate/Area] [employer] Phone: Comment on above: Average GFR for 20-2 9 years old: 116 mL/min/1.73sq m Chronic Kidney Disease: <60 mL/min/1.73sq m Kidney failure: <15 mL/min/1.73sq m eGFR calculated using average adult body mass. Additional eGFR calculator available at: http://www.YouFig/multiple_crcl_2012.htm GFR/1.73 sq M.predicted MDRD (S/P/Bld) [Vol rate/Area] NOT REPORTED [employer] Phone: Glucose [Mass/Vol] 92 mg/dL 70 - 99 mg/dL [employer] Phone: Potassium [Moles/Vol] 4.2 mmol/L 3.7 - 5.3 mmol/L [employer] Phone: Sodium [Moles/Vol] 135 mmol/L 135 - 144 mmol/L [employer] Phone: Urea nitrogen (BldV) [Mass/Vol] 11 mg/dL 6 - 20 mg/dL [employer] Phone: Urea nitrogen/Creatinine (Bld) [Mass ratio] NOT REPORTED [employer] Phone: Laboratory - Chemistry and C hemistry - challengeOrdered By: Migule Sharpe on 09-23-2020 Albumin [Mass/Vol] 4.3 g/dL (3.5-5.2 ) [employer] [facility] Work Phone: Comment on above: Note: Responsible Ob cafe server: [employer] AUTOFILE (1658) ALT [Catalytic activity/Vol] 36 U/L High (5-33 ) [facility] Work Phone: Comment on above: Note: Responsible Ob cafe server: [employer] (3003) Anion gap [Moles/Vol] 11 mmol/L (9-17 ) [facility] Work Phone: Comment on above: Note: Responsible Ob cafe server: [employer] (3003) AST [Catalytic activity/Vol] 27 U/L (<32 ) [facility] Work Phone: Comment on above: Note: Responsible Ob cafe server: [employer] (3003) Bilirubin [Mass/Vol] 0.34 mg/dL (0.3-1.2 ) [facility] Work Phone: Comment on above: Note: Responsible Ob cafe server: [employer] (3003) Calcium [Mass/Vol] 9.5 mg/dL (8.6-10.4 ) [facility] Work Phone: Comment on above: Note: Responsible Ob cafe server: [employer] (3003) Chloride [Moles/Vol] 102 mmol/L (98-107 ) [facility] Work Phone: Comment on above: Note: Responsible Ob cafe server: [employer] (3003) Cholesterol [Mass/Vol] 186 mg/dL (<200 ) [facility] Work Phone: Comment on above: Note: Cholesterol Gu idelines:<200 [id number] Borderline>240 UndesirableResponsible Observer: [employer] (3003) Cholesterol.total/Chol esterol in HDL [Mass ratio] 3.8 {ratio} (<5 ) [facility] Work Phone: Comment on above: Note: Responsible Ob cafe server: [employer] (3003) CO2 [Moles/Vol] 22 mmol/L (20-31 ) [facility] Work Phone: Comment on above: Note: Responsible Ob cafe server: [employer] (3003) Creatinine [Mass/Vol] 0.46 mg/dL Low (0.50- 0.90 ) [facility] Work Phone: Comment on above: Note: Responsible Ob cafe server: [employer] (3003) Glucose [Mass/Vol] 92 mg/dL (70-99 ) [facility] Work Phone: Comment on above: Note: Responsible Ob cafe server: [employer] (3003) Magnesium [Mass/Vol] 49 mg/dL (>40 ) [facility] Work Phone: Comment on above: Note: HDL Guidelines :<40 [id number] Borderline>59 DesirableResponsible Observer: ABBIEEV AUTOFILE (3003) Magnesium [Mass/Vol] 102 mg/dL (0-130 ) [facility] Work Phone: Comment on above: Note: LDL Guidelines :<100 [id number] Near to/above [id number] Borderline>159 UndesirableDirect (measured) LDL and calculated LDL are not interchangeable tests.Responsible Observer: ABBIEEV AUTOFILE (3003) Magnesium [Mass/Vol] 173 mg/dL High (<150 ) [facility] Work Phone: Comment on above: Note: Triglyceride G uidelines:<150 [id number] High>499 Very highBased on AHA Guidelines for fasting triglyceride, February 2012.Responsible Observer: [employer] (3003) Potassium [Moles/Vol] 4.2 mmol/L (3.7-5.3 ) [facility] Work Phone: Comment on above: Note: Responsible Ob cafe server: [employer]OFILE (3003) Protein [Mass/Vol] 7.5 g/dL (6.4-8.3 ) [facility] Work Phone: Comment on above: Note: Responsible Ob cafe server: [employer] (3003) Sodium [Moles/Vol] 135 mmol/L (135-144 ) [facility] Work Phone: Comment on above: Note: Responsible Ob cafe server: [employer] (3003) Urea nitrogen [Mass/Vol] 11 mg/dL (6-20 ) [facility] Work Phone: Comment on above: Note: Responsible Ob cafe server: [employer] (3003) Laboratory - Hematology and Cell countsOrdered By: 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 on 09-23-2020 Basophils/100 WBC (Bld) 1 % (0-2 ) [facility] Work Phone: Comment on above: Note: Responsible Ob cafe server: XNV AUTOFILE (3018) Eosinophils (Bld) [#/Vol] 0.14 10*3/uL (0.00-0.44 ) [facility] Work Phone: Comment on above: Note: Responsible Ob cafe server: [employer] (3018) Eosinophils/100 WBC (Bld) 2 % (1-4 ) [facility] Work Phone: Comment on above: Note: Responsible Ob cafe server: [employer] (3018) Erythrocyte distribution width (RBC) [Ratio] 12.4 % (11.8-14.4 ) [facility] Work Phone: Comment on above: Note: Responsible Ob cafe server: [employer] (3018) Hematocrit (Bld) [Volume fraction] 42.9 % (36.3-47.1 ) [facility] Work Phone: Comment on above: Note: Responsible Ob cafe server: [employer] (3018) Hemoglobin (Bld) [Mass/Vol] 13.5 g/dL (11.9-15.1 ) [facility] Work Phone: Comment on above: Note: Responsible Ob cafe server: [employer] (3018) Immature granulocytes/100 WBC (Bld) 0 % (0 ) [facility] Work Phone: Comment on above: Note: Responsible Ob cafe server: [employer] (3018) Lymphocytes (Bld) [#/Vol] 2.71 10*3/uL (1.10-3.70 ) [facility] Work Phone: Comment on above: Note: Responsible Ob cafe server: [employer] (3018) Lymphocytes/100 WBC (Bld) 30 % (24-43 ) [facility] Work Phone: Comment on above: Note: Responsible Ob cafe server: [employer] (3018) MCH (RBC) [Entitic mass] 27.6 pg (25.2-33.5 ) [facility] Work Phone: Comment on above: Note: Responsible Ob cafe server: [employer] (3018) MCHC (RBC) [Mass/Vol] 31.5 g/dL (28.4- 34.8 ) [facility] Work Phone: Comment on above: Note: Responsible Ob cafe server: [employer] (3018) MCV (RBC) [Entitic vol] 87.6 fL (82.6-102.9 ) [facility] Work Phone: Comment on above: Note: Responsible Ob cafe server: [employer] (3018) Monocytes (Bld) [#/Vol] 0.48 10*3/uL (0.10-1.20 ) [facility] Work Phone: Comment on above: Note: Responsible Ob cafe server: [employer] (3018) Monocytes/100 WBC (Bld) 5 % (3-12 ) [facility] Work Phone: Comment on above: Note: Responsible Ob cafe server: [employer] (3018) Platelet mean volume (Bld) [Entitic vol] 11.6 fL (8.1-13.5 ) [facility] Work Phone: Comment on above: Note: Responsible Ob cafe server: [employer] (3018) Platelets (Bld) [#/Vol] 246 10*3/uL (138-453 ) [facility] Work Phone: Comment on above: Note: Responsible Ob cafe server: [employer] (3017) RBC (Bld) [#/Vol] 4.90 10*6/uL (3.95-5.11 ) [facility] Work Phone: Comment on above: Note: Responsible Ob cafe server: [employer] (3017) RBC morphology finding Nom (Bld) NOT REPORTED [facility] Work Phone: Segmented neutrophils/100 WBC (Bld) 62 % (36-65 ) [facility] Work Phone: Comment on above: Note: Responsible Ob cafe server: [employer] (3017) WBC (Bld) [#/Vol] 9.2 10*3/uL (3.5-11.3 ) [facility] Work Phone: Comment on above: Note: Responsible Ob cafe server: [employer] (3017) Lipid Prof, Fastingon 2020 Cholesterol,VLDL NOT REPORTED Normal 06-29 [facility] Comment on above: Performed By: #### L IPRF, CDP, CP, TSHX #### [employer] [address] [place] [address] Plant Equipment Engineer: Chato Aguirre MD Lipid, FastingOrdered By: Zandra Sharpe on 09-23-2020 Cholesterol [Mass/Vol] 186 mg/dL <200 [facility] Work Phone: Comment on above: Cholesterol Guidelines: <200 Desirable 200-240 Borderline >240 Undesirable Cholesterol in HDL [Mass/Vol] 49 mg/dL >40 [employer] Phone: Comment on above: HDL Guidelines: <40 Undesirable 40-59 Borderline >59 Desirable Cholesterol in LDL [Mass/Vol] 102 mg/dL 0 - 130 mg/dL [employer] Phone: Comment on above: LDL Guidelines: <100 Desirable 100-129 Near to/above Desirable 130-159 Borderline >159 Undesirable Direct (measured) LDL and calculated LDL are not interchangeable tests. Cholesterol in VLDL [Mass/Vol] NOT REPORTED High 1 - 30 mg/dL [employer] Phone: Cholesterol.total/Chol esterol in HDL [Mass ratio] 3.8 {ratio} <5 [facility] Phone: Triglyceride, Fasting 173 mg/dL High <150 [facility] [employer] Work Phone: Comment on above: Triglyceride Guidelines: <150 Desirable 150-199 Borderline 200-499 High >499 Very high Based on AHA Guidelines for fasting triglyceride, February 2012. No Panel InformationOrdered By: 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 on 09-23-2020 Interpretation and review of laboratory results Abnormal [facility] Phone: (cont.) See Note [facility] Work Phone: Comment on above: Note: Average GFR fo r 20-29 years old:116 mL/min/1.73sq mChronic Kidney Disease:<60 mL/min/1.73sq mKidney failure:<15 mL/min/1.73sq meGFR calculated using average adult body mass. Additional eGFR calculatoravailable at:http://www.YouFig/multiple_crcl_2011.htmResponsible Observer: SHEA AUTOFILE (3003) Abs. Basophil 0.05 k/uL (0.00-0.20 ) [facility] Work Phone: Comment on above: Note: Responsible Ob cafe server: XNV AUTOFILE (3018) Abs.Imm.Granulocyte <0.03 k/uL (0.00-0. 30 ) [facility] Work Phone: Comment on above: Note: Responsible Ob cafe server: XNV AUTOFILE ([id number]) Abs.Neutrophil (Seg) 5.79 k/uL (1.50-8 .10 ) [facility] Work Phone: Comment on above: Note: Responsible Ob cafe server: XNV AUTOFILE (345) Albumin/Glob Ratio 1.3 (1.0-2.5 ) [facility] Work Phone: Comment on above: Note: Responsible Ob cafe server: CEEV AUTOFILE (3003) Alkaline Phos 49 U/L (35-104 ) [facility] Work Phone: Comment on above: Note: Responsible Ob cafe server: CEEV AUTOFILE (3003) Auto Diff Performed NOT REPORTED [facility] Work [facility]: BUN/CRE Ratio NOT REPORTED (9-20 ) [facility] Work Phone: Cholesterol,VLDL NOT REPORTED mg/dL (1-30 ) [facility] Work Phone: GFR, Amer >60 mL/min (>60 ) [facility] Work Phone: Comment on above: Note: Responsible Ob cafe server: CEEV AUTOFILE (3003) GFR,non Amer >60 mL/min (>60 ) [facility] Work Phone: Comment on above: Note: Responsible Ob cafe server: CEEV AUTOFILE (3003) NRBC Automated 0.0 per_100_WBC (0.0 ) [facility] Work Phone: Comment on above: Note: Responsible Ob cafe server: XNV AUTOFILE (3018) Platelet Estimate NOT REPORTED [facility] Work Phone: Reported Physicians See Note [facility] Work Phone: Comment on above: Note: Reported Physi cians:Ordering: Cotton, AimeeAttending: Cotton, AimeeReferring: Cotton, Miguel Staging: NOT REPORTED [facility] Work Phone: Thyroid Stim. Horm. 3.38 mIU/L (0.30-5. 00 ) [facility] Work Phone: Comment on above: Note: Responsible Ob cafe server: CEEV AUTOFILE (3003) WBC Morphology NOT REPORTED [facility] Work Phone: TSH with ReflexOrdered By: Kamryn Sharpe on 09-23-2020 TSH Qn 3.38 m[IU]/L [facility] Work Phone: APTTon 04-08-2020 aPTT Coag (Bld) [Time] 25.2 s Me [place] Comment on above: IV Heparin Therapy Range: 62.0-94.0 Brain Natriuretic Peptideon 04-08-2020 Natriuretic peptide B (Bld) [Mass/Vol] pg/mL <300 pg/mL [place] Comment on above: Pro-BNP results ayse ot be compared to BNP results. Natriuretic peptide B (Bld) [Mass/Vol] Pro-BNP Reference Range: [place], [place] Comment on above: Rule Out: <300 [place] Zone: Age <50 300-450 Age 50-75 300-900 Age >75 300-1800 Usually represents mild to moderate HF but other cardiopulmonary causes cannot be ruled out. Rule In: Age <50 >450 Age 50-75 >900 Age >75 >1800 CBCon 04-08-2020 Erythrocyte distribution width (RBC) [Ratio] 11.9 % 11.8 - 14.4 % [place] Hematocrit (Bld) [Volume fraction] 37.9 % 36.3 - 47.1 % [place] Hemoglobin (Bld) [Mass/Vol] 12.5 g/dL 11.9 - 15.1 g/dL [place] MCH (RBC) [Entitic mass] 27.8 pg 25.2 - 33.5 pg [place] MCHC (RBC) [Mass/Vol] 33.0 g/dL 28.4 - 34.8 g/dL [place] MCV (RBC) [Entitic vol] 84.2 fL 82.6 - 102.9 fL [place] Platelet mean volume (Bld) [Entitic vol] 10.9 fL 8.1 - 13.5 fL [place] Platelets (Bld) [#/Vol] 184 10*3/uL [place] RBC (Bld) [#/Vol] 4.50 10*6/uL 3.95 - 5.1 1 m/uL [place] WBC (Bld) [#/Vol] 7.8 10*3/uL [place] WBC (Bld) [#/Vol] 0.0 10*3/uL 0.0 per 10 0 WBC [place] COVID-19on 04-08-2020 Interpretation and review of laboratory results Abnormal [place] SARS-CoV-2, Rapid DETECTED Abnormal Not Detected [place] Comment on above: Rapid NAAT: The [...] this assay. Fact sheet for Healthcare Providers: https://www.fda.gov/media/722610/download Fact sheet for Patients: https://www.fda.gov/media/210924/download Methodology: Isothermal Nucleic Acid Amplification Results reported to the appropriate Health Department Source .NASOPHARYNGEAL SWAB [place] CT CHEST PULMONARY EMBOLISM W CONTRASTon 04-08-2020 Unremarkable appeara nce of the chest with no evidence of pulmonary embolism and clear lungs. Incidentally noted hepatic fatty infiltration. [place] EXAMINATION: CTA OF THE CHEST 04/08/2020 [...] No significant osseous or soft tissue abnormality. [place], [place] Jean Marie, Mhpn Incoming Radiant Results From [facility] - 04/08/2020 4:12 PM EST EXAMINATION: CTA [...] clear lungs. Incidentally noted hepatic fatty infiltration. [place] Comprehensive Metabolic Pane fermin 04-08-2020 Albumin [Mass/Vol] 4.1 g/dL 3.5 - 5.2 g/dL [place] Albumin/Globulin [Mass ratio] 1.4 {ratio} [place] ALP [Catalytic activity/Vol] 62 U/L 35 - 104 U/L [place] ALT [Catalytic activity/Vol] 19 U/L 5 - 33 U/L [place] Anion gap [Moles/Vol] 10 mmol/L 9 - 17 mmol/L [place] AST [Catalytic activity/Vol] 20 U/L <32 [place] Bilirubin Ql (U) 0.48 mg/dL 0.3 - 1.2 mg/dL [place] Bun/Cre Ratio 23 High [place] Calcium [Mass/Vol] 8.9 mg/dL 8.6 - 10. 4 mg/dL [place] Chloride [Moles/Vol] 102 mmol/L 98 - 10 7 mmol/L [place] CO2 [Moles/Vol] 23 mmol/L 20 - 31 mmol/L [place] Creatinine [Mass/Vol] 0.47 mg/dL Low 0.5 - 0.9 mg/dL [place] GFR >60 >60 mL/min [place] GFR Non- >60 >60 mL/min [place] Glucose [Mass/Vol] 88 mg/dL 70 - 99 mg/dL [place] Interpretation and review of laboratory results Abnormal [place] Potassium [Moles/Vol] 3.7 mmol/L 3.7 - 5.3 mmol/L [place] Protein [Mass/Vol] 7.1 g/dL 6.4 - 8.3 g/dL [place] Sodium [Moles/Vol] 135 mmol/L 135 - 144 mmol/L [place] Urea nitrogen [Mass/Vol] 11 mg/dL 6 - 20 mg/dL [place] Metabolic Panelon 04-08-2020 GFR/1.73 sq M predicted among non-blacks MDRD (S/P/Bld) [Vol rate/Area] [place] Comment on above: Stage 1: Some [...] body mass. Additional eGFR calculator available at: http://www.[facility].[employer]/multiple_crcl_2012.htm Otheron 04-08-2020 SARS-CoV-2 [place], [place] , Urineon 0 Beta HCG ( test) Ql (U) Negative NEGATIVE [place] Comment on above: Specimens with hCG l evels near the threshold of the test (25 mIU/mL) may give a negative or indeterminate result. In such cases, another test should be performed with a new specimen in 48-72 hours. If early is suspected clinically in this setting, correlation with quantitative serum b-hCG level is suggested. [facility] has confirmed the use of plasma for this test. This has not been cleared or approved by the U.S. Food and Drug Administration. The FDA has determined that such clearance is not necessary. Protime-INRon 04-08-2020 INR Coag (PPP) [Relative time] 1.0 {INR} [place] Comment on above: Non-therapeutic Range: INR = 0.9-1.2 Therapeutic Range: Moderate Anticoagulant Intensity: INR = 2.0-3.0 High Anticoagulant Intensity: INR = 2.5-3.5 PT Coag (PPP) [Time] 13.[address] [place] Troponinon 04-08-2020 Troponin I.cardiac [Mass/Vol] NOT REPORTED [place] Troponin T.cardiac [Mass/Vol] NOT REPORTED <0.03 ng/mL [place] Troponin, High Sensitivity <6 0 - 14 ng/L [place] Comment on above: High Sensitivity Troponin values cannot be compared with other Troponin methodologies. Patients with high levels of Biotin oral intake (i.e >5mg/day) may have falsely decreased Troponin levels. Samples collected within 8 hours of biotin intake may require additional information for diagnosis. CBC Auto Differentialon Basophils (Bld) [#/Vol] 0.05 10*3/uL [facility] Phone: Basophils/100 WBC (Bld) 1 % 0 - 2 % [facility] Phone: Differential Type NOT REPORTED [facility] Phone: Eosinophils (Bld) [#/Vol] 0.15 10*3/uL [facility] Phone: Eosinophils/100 WBC (Bld) 1 % 1 - 4 % [facility] Phone: Erythrocyte distribution width (RBC) [Ratio] 12.1 % 11.8 - 14.4 % [facility] Phone: Hematocrit (Bld) [Volume fraction] 44.5 % 36.3 - 47.1 % [facility] Phone: Hemoglobin (Bld) [Mass/Vol] 14.0 g/dL 11.9 - 15.1 g/dL [facility] Phone: Immature granulocytes (Bld) [#/Vol] 0 % 0 [facility] Phone: Immature granulocytes (Bld) [#/Vol] 10*3/uL [facility] Phone: Interpretation and review of laboratory results Abnormal [facility] Phone: Lymphocytes (Bld) [#/Vol] 2.83 10*3/uL [facility] Phone: Lymphocytes/100 WBC (Bld) 27 % 24 - 43 % [facility] Phone: MCH (RBC) [Entitic mass] 27.6 pg 25.2 - 33.5 pg [facility] Phone: MCHC (RBC) [Mass/Vol] 31.5 g/dL 28.4 - 34.8 g/dL [facility] Phone: MCV (RBC) [Entitic vol] 87.6 fL 82.6 - 102.9 fL [facility] Phone: Monocytes (Bld) [#/Vol] 0.52 10*3/uL [facility] Phone: Monocytes/100 WBC (Bld) 5 % 3 - 12 % [facility] Phone: Platelet mean volume (Bld) [Entitic vol] 12.0 fL 8.1 - 13.5 fL [facility] Phone: Platelets (Bld) [#/Vol] NOT REPORTED [employer] Work Phone: Platelets (Bld) [#/Vol] 241 10*3/uL [employer] Work Phone: RBC (Bld) [#/Vol] 5.08 10*6/uL 3.95 - 5.1 1 m/uL [employer] Work Phone: RBC morphology finding Nom (Bld) NOT REPORTED [employer] Work Phone: Segmented neutrophils/100 WBC (Bld) 66 % High 36 - 65 % [employer] Work Phone: Segs Absolute 7.04 [employer] Work Phone: WBC (Bld) [#/Vol] 10.6 10*3/uL [employer] Work Phone: WBC (Bld) [#/Vol] 0.0 10*3/uL 0.0 per 10 0 WBC [employer] Work Phone: WBC Morphology NOT REPORTED [facility] Work Phone: [facility]acon 07-06-2019 Cholesterol [Mass/Vol] 198 mg/dL (<200) [facility] Work Phone: Comment on above: Note: Cholesterol Gu idelines:<200 [id number] Borderline>240 UndesirableResponsible Observer: CCEV AUTOFILE (4188) Comprehensive Metabolic Pane fermin 07-06-2019 Albumin [Mass/Vol] 4.5 g/dL 3.5 - 5.2 g/dL [employer] Work Phone: Albumin/Globulin [Mass ratio] 1.4 {ratio} [facility] Phone: ALP [Catalytic activity/Vol] 62 U/L 35 - 104 U/L [employer] Work Phone: ALT [Catalytic activity/Vol] 39 U/L High 5 - 33 U/L [facility] Phone: Anion gap [Moles/Vol] 16 mmol/L 9 - 17 mmol/L [facility] Phone: AST [Catalytic activity/Vol] 32 U/L High <32 [facility] Phone: Bilirubin Ql (U) 0.25 mg/dL Low 0.3 - 1.2 mg/dL [facility] Phone: Bun/Cre Ratio NOT REPORTED @[facility] Work Phone: Calcium [Mass/Vol] 9.8 mg/dL 8.6 - 10. 4 mg/dL [facility] Phone: Chloride [Moles/Vol] 103 mmol/L 98 - 10 7 mmol/L [facility] Phone: CO2 [Moles/Vol] 19 mmol/L Low 20 - 31 mmol/L [facility] Phone: Creatinine [Mass/Vol] 0.51 mg/dL 0.5 - 0.9 mg/dL [facility] Phone: GFR >60 >60 mL/min [employer] Phone: GFR Non- >60 >60 mL/min [facility] Phone: GFR/1.73 sq M predicted among non-blacks MDRD (S/P/Bld) [Vol rate/Area] [facility] Phone: Comment on above: Average GFR for 20-2 9 years old: 116 mL/min/1.73sq m Chronic Kidney Disease: <60 mL/min/1.73sq m Kidney failure: <15 mL/min/1.73sq m eGFR calculated using average adult body mass. Additional eGFR calculator available at: http://www.[facility].[employer]/multiple_crcl_2012.htm GFR/1.73 sq M predicted among non-blacks MDRD (S/P/Bld) [Vol rate/Area] NOT REPORTED [facility] Phone: Glucose [Mass/Vol] 89 mg/dL 70 - 99 mg/dL [facility] Phone: Interpretation and review of laboratory results Abnormal [facility] Phone: Potassium [Moles/Vol] 4.6 mmol/L 3.7 - 5.3 mmol/L [facility] Phone: Protein [Mass/Vol] 7.8 g/dL 6.4 - 8.3 g/dL [facility] Phone: Sodium [Moles/Vol] 138 mmol/L 135 - 144 mmol/L [facility] Phone: Urea nitrogen [Mass/Vol] 14 mg/dL 6 - 20 mg/dL [facility] Phone: Hematologyon 07-06-2019 Basophils/100 WBC (Bld) 1 % (0-2) [facility] Work Phone: Comment on above: Note: Responsible Ob cafe server: XNV AUTOFILE (3018) Eosinophils (Bld) [#/Vol] 0.15 10*3/uL (0.00-0.44) [facility] Work Phone: Comment on above: Note: Responsible Ob cafe server: XNV AUTOFILE (3018) Eosinophils/100 WBC (Bld) 1 % (1-4) [facility] Work Phone: Comment on above: Note: Responsible Ob cafe server: XNV AUTOFILE (3018) Hematocrit (Bld) [Volume fraction] 44.5 % (36.3-47.1) [facility] Work Phone: Comment on above: Note: Responsible Ob cafe server: XNV AUTOFILE (3018) Hemoglobin (Bld) [Mass/Vol] 14.0 g/dL (11.9-15.1) [facility] Work Phone: Comment on above: Note: Responsible Ob cafe server: XNV AUTOFILE (3018) Lymphocytes (Bld) [#/Vol] 2.83 10*3/uL (1.10-3.70) [facility] Work Phone: Comment on above: Note: Responsible Ob cafe server: XNV AUTOFILE (3018) Lymphocytes/100 WBC (Bld) 27 % (24-43) [facility] Work Phone: [phone] Comment on above: Note: Responsible Ob cafe server: XNV AUTOFILE (3018) MCH (RBC) [Entitic mass] 27.6 pg (25.2-33.5) [facility] Work Phone: [phone] Comment on above: Note: Responsible Ob cafe server: XNV AUTOFILE (3018) MCV (RBC) [Entitic vol] 87.6 fL (82.6-102.9 ) [facility] Work Phone: [phone] Comment on above: Note: Responsible Ob cafe server: XNV AUTOFILE (3018) Monocytes (Bld) [#/Vol] 0.52 10*3/uL (0.10-1.20) [facility] Work Phone: [phone] Comment on above: Note: Responsible Ob cafe server: XNV AUTOFILE (3018) Monocytes/100 WBC (Bld) 5 % (3-12) [facility] Work Phone: Comment on above: Note: Responsible Ob cafe server: XNV AUTOFILE (3018) Platelets (Bld) [#/Vol] NOT REPORTED [facility] Work Phone: [phone] Platelets (Bld) [#/Vol] 241 10*3/uL (138-453) [facility] Work Phone: Comment on above: Note: Responsible Ob cafe server: XNV AUTOFILE (3018) RBC (Bld) [#/Vol] 5.08 10*6/uL (3.95-5.11) [facility] Work Phone: Comment on above: Note: Responsible Ob cafe server: XNV AUTOFILE (3018) RBC morphology finding Nom (Bld) NOT REPORTED [facility] Work Phone: WBC (Bld) [#/Vol] 0.0 per_100_WBC (0.0) [facility] Work Phone: Comment on above: Note: Responsible Ob cafe server: XNV AUTOFILE (2909) WBC (Bld) [#/Vol] 10.6 10*3/uL (3.5-11.3) [facility] Work Phone: Comment on above: Note: Responsible Ob cafe server: XNV AUTOFILE (9338) Lipid, Fastingon 07-06-2019 Cholesterol [Mass/Vol] 198 mg/dL <200 [facility] [employer] Phone: Comment on above: Cholesterol Guidelines: <200 Desirable 200-240 Borderline >240 Undesirable Cholesterol in HDL [Mass/Vol] 53 mg/dL >40 [facility] Comment on above: HDL Guidelines: <40 Undesirable 40-59 Borderline >59 Desirable Cholesterol in LDL [Mass/Vol] 118 mg/dL 0 - 130 mg/dL [facility] Phone: Comment on above: LDL Guidelines: <100 Desirable 100-129 Near to/above Desirable 130-159 Borderline >159 Undesirable Direct (measured) LDL and calculated LDL are not interchangeable tests. Cholesterol in VLDL [Mass/Vol] NOT REPORTED 1 - 30 mg/dL [facility] Phone: Cholesterol.total/Chol esterol in HDL [Mass ratio] 3.7 {ratio} <5 [facility] Phone: Triglyceride, Fasting 135 mg/dL <150 [facility] Phone: Comment on above: Triglyceride Guidelines: <150 Desirable 150-199 Borderline 200-499 High >499 Very high Based on AHA Guidelines for fasting triglyceride, February 2012. Metabolic Panelon 07-06-2019 Albumin [Mass/Vol] 4.5 g/dL (3.5-5.2) [facility] Work Phone: Comment on above: Note: Responsible Ob cafe server: CCEV AUTOFILE (3002) ALT [Catalytic activity/Vol] 39 U/L High (5-33) [facility] Work Phone: Comment on above: Note: Responsible Ob cafe server: CCEV AUTOFILE (3002) Anion gap [Moles/Vol] 16 mmol/L (9-17) [facility] Work Phone: Comment on above: Note: Responsible Ob cafe server: CCEV AUTOFILE (3002) AST [Catalytic activity/Vol] 32 U/L High (<32) [facility] Work Phone: Comment on above: Note: Responsible Ob cafe server: CCEV AUTOFILE (3002) Bilirubin [Mass/Vol] 0.25 mg/dL Low (0.3-1.2) [facility] Work Phone: Comment on above: Note: Responsible Ob cafe server: CCEV AUTOFILE (3002) Calcium [Mass/Vol] 9.8 mg/dL (8.6-10.4) [facility] Work Phone: Comment on above: Note: Responsible Ob cafe server: CCEV AUTOFILE (3002) Chloride [Moles/Vol] 103 mmol/L (98-107) [facility] Work Phone: Comment on above: Note: Responsible Ob cafe server: CCEV AUTOFILE (3002) CO2 [Moles/Vol] 19 mmol/L Low (20-31) [facility] Work Phone: Comment on above: Note: Responsible Ob cafe server: CCEV AUTOFILE (3002) Creatinine [Mass/Vol] 0.51 mg/dL (0.50-0.90) [facility] Work Phone: Comment on above: Note: Responsible Ob cafe server: CCEV AUTOFILE (3002) Glucose [Mass/Vol] 89 mg/dL (70-99) [facility] Work Phone: Comment on above: Note: Responsible Ob cafe server: CCEV AUTOFILE (3002) Potassium [Moles/Vol] 4.6 mmol/L (3.7-5.3) [facility] Work Phone: Comment on above: Note: Responsible Ob cafe server: CCEV AUTOFILE (3002) Protein [Mass/Vol] 7.8 g/dL (6.4-8.3) [facility] Work Phone: Comment on above: Note: Responsible Ob cafe server: CCEV AUTOFILE (3002) Sodium [Moles/Vol] 138 mmol/L (135-144) [facility] Work Phone: Comment on above: Note: Responsible Ob cafe server: CCEV AUTOFILE (3002) Urea nitrogen [Mass/Vol] 14 mg/dL (6-20) [facility] Work Phone: Comment on above: Note: Responsible Ob cafe server: CCEV AUTOFILE (3002) Otheron 07-06-2019 (cont.) See Note [facility] Work Phone: Comment on above: Note: Average GFR fo r 20-29 years old:116 mL/min/1.73sq mChronic Kidney Disease:<60 mL/min/1.73sq mKidney failure:<15 mL/min/1.73sq meGFR calculated using average adult body mass. Additional eGFR calculatoravailable at:http://www.[facility].[employer]/multiple_crcl_2012.htmResponsible Observer: CCEV AUTOFILE (3002) Abs. Basophil 0.05 k/uL (0.00-0.20) [facility] Work Phone: Comment on above: Note: Responsible Ob cafe server: XNV AUTOFILE (3018) Abs.Imm.Granulocyte <0.03 k/uL (0.00-0.30) [facility] Work Phone: Comment on above: Note: Responsible Ob cafe server: XNV AUTOFILE (3018) Abs.Neutrophil (Seg) 7.04 k/uL (1.50-8.10) [facility] Work Phone: Comment on above: Note: Responsible Ob cafe server: XNV AUTOFILE (3018) Albumin/Glob Ratio 1.4 (1.0-2.5) [facility] Work Phone: Comment on above: Note: Responsible Ob cafe server: CCEV AUTOFILE (3002) Alkaline Phos 62 U/L (35-104) [facility] Work Phone: [phone] Comment on above: Note: Responsible Ob cafe server: CCEV AUTOFILE (3002) Auto Diff Performed NOT REPORTED [facility] Work Phone: [phone] BUN/CRE Ratio NOT REPORTED (9-20) [facility] Work Phone: [phone] Cholesterol,HDL 53 mg/dL (>40) [facility] Work Phone: Comment on above: Note: HDL Guidelines :<40 [id number] Borderline>59 DesirableResponsible Observer: CCEV AUTOFILE (3002) Cholesterol,LDL 118 mg/dL (0-130) [facility] Work Phone: Comment on above: Note: LDL Guidelines :<100 [id number] Near to/above Kecrbboqi357-129 Borderline>159 UndesirableDirect (measured) LDL and calculated LDL are not interchangeable tests.Responsible Observer: CCEV AUTOFILE (3002) Cholesterol,VLDL NOT REPORTED mg/dL (1-30) [facility] Work Phone: [phone] Cholesterol.total/Chol esterol in HDL [Mass ratio] 3.7 {ratio} (<5) [facility] Work Phone: Comment on above: Note: Responsible Ob cafe server: CCEV AUTOFILE (3002) Erythrocyte distribution width (RBC) [Ratio] 12.1 % (11.8-14.4) [facility] Work Phone: Comment on above: Note: Responsible Ob cafe server: XNV AUTOFILE (3018) Free Insulin 34 uIU/mL High (3-19) [facility] Work Phone: Comment on above: Note: Responsible Ob cafe server: LAB [facility] (0603) GFR, Amer >60 mL/min (>60) [facility] Work Phone: Comment on above: Note: Responsible Ob cafe server: CCEV AUTOFILE (3002) GFR,non Amer >60 mL/min (>60) [facility] Work Phone: [phone] Comment on above: Note: Responsible Ob cafe server: CCEV AUTOFILE (3002) Immature granulocytes (Bld) [#/Vol] 0 % (0) [facility] Work Phone: [phone] Comment on above: Note: Responsible Ob cafe server: XNV AUTOFILE (3018) MCHC (RBC) [Mass/Vol] 31.5 g/dL (28.4-34.8) [facility] Work Phone: [phone] Comment on above: Note: Responsible Ob cafe server: XNV AUTOFILE (5718) Performing Lab: see note [facility] Work Phone: [phone] Comment on above: Note: [facility] [address] [facility] [address] Note: [facility] [address] [facility] [address] Platelet mean volume (Bld) [Entitic vol] 12.0 fL (8.1-13.5) [facility] Work Phone: [phone] Comment on above: Note: Responsible Ob cafe server: XNV AUTOFILE (9745) Reported Physicians See Note [facility] Work Phone: [phone] Comment on above: Note: Reported Physi cians:Ordering: Allyson Floyd AAttending: Everett CynthiaReferring: Allyson Floyd Segmented neutrophils/100 WBC (Bld) 66 % High (36-65) [facility] Work Phone: [phone] Comment on above: Note: Responsible Ob cafe server: XNV AUTOFILE (3017) Staging: NOT REPORTED [facility] Work Phone: [phone] Thyroid Stim. Horm. 4.15 mIU/L (0.30-5.00) [facility] Work Phone: Comment on above: Note: Responsible Ob cafe server: CCEV AUTOFILE (3002) Thyroxine, Free 1.21 ng/dL (0.93-1.70) [facility] Work Phone: Comment on above: Note: Responsible Ob cafe server: CCEV AUTOFILE (3002) Total Insulin 46 uIU/mL High (3-19) [facility] Work Phone: Comment on above: Note: (NOTE)INTERPRE TIVE INFORMATION: Insulin, Free and TotalThis test reacts on a nearly equimolar basis with the analogsinsulin aspart, insulin glargine, and insulin lispro. Insulindetemir exhibits approximately 50 percent cross-reactivity. Testreactivity with insulin glulisine is negligible (<3 percent). Toconvert to pmol/L, multiply uIU/mL by 6.0. Reference intervalsestablished for fasting specimens.Performed by [facility],[address] [place] [id number] kly.[employer], [place] Xiong MD, Lab. DirectorResponsible Observer: LAB KIERAN (0603) Triglyceride,Fasting 135 mg/dL (<150) [facility] Work Phone: Comment on above: Note: Triglyceride G uidelines:<150 [id number] [id number] High>499 Very highBased on AHA Guidelines for fasting triglyceride, February 2012.Responsible Observer: CCEV AUTOFILE (3002) Triiodothyronine T3 150 ng/dL (80-200) [facility] Work Phone: Comment on above: Note: Responsible Ob cafe server: CEEV AUTOFILE (3003) WBC Morphology NOT REPORTED [facility] Work Phone: T3on 07-06-2019 T3, Total 150 ng/dL 80 - 200 ng/dL [facility] [employer] Phone: T4, Freeon 07-06-2019 Thyroxine, Free 1.21 ng/dL 0.93 - 1.7 ng/dL [facility] [place] Phone: TSH without Reflexon 020 TSH Qn 4.15 m[IU]/L [employer] Work Phone: US NON OB TRANSVAGINALon Satisfactory IUD position. RECOMMENDATIONS: No follow-up imaging is recommended. Reference: US BPRs based on Radiology 2009;256(3):943-54; CT/MR BPRs based on J Am Joanne Radiol 2013;10:675-681. [place] EXAMINATION: PELVIC ULTRASOUND 02/02/2019 TECHNIQUE: Transvaginal [...] Free Fluid: No evidence of free fluid. [place], [place] Jean Marie, pn Incoming Radiant Results From [facility] - 02/02/2019 8:44 AM EDT EXAMINATION: PELVIC [...] based on J Am Joanne Radiol 2013;10:[id number]. [facility] ROBBY PERES 08-21-2018 CNOV Office Visit ([facility] ) ----- ESTEFANIA HERRERA ([id number]) 1995 F Date Time Provider Department 08/21/18 12:00 PM MIGUEL LOVELACE (DIANELYS) [facility] During your visit today, we recorded the following information about you: Temperature Pulse Respiration Blood pressure 97.6 degrees 99/minute 16/minute 136/81 Weight 109.8 kg Miguel Lovelace APRN.CNP 08/21/2018 12:46 PM Signed Subjective The history is provided by the patient. No language instructor was used. Cough This is a new [...] is a safe and effective decongestant 3. [place] Nasal Marydel may offer relief of nasal and head [...] help open respiratory and sinus passages. - [place] Nasal Marydel may offer relief of nasal and head [...] get worse. Thank you [facility]. I appreciate your confidence in choosing the [facility] for your medical care. Miguel Lovelace APRN.FEED PREPARATION OPERATOR [facility] [address] [address] Referring Provider: SELF [200] Allergies As [...] is a safe and effective decongestant 3. [place] Nasal Marydel may offer relief of nasal and head [...] help open respiratory and sinus passages. - [place] Nasal Marydel may offer relief of nasal and head [...] get worse. Thank you for coming to [facility] today. I appreciate your confidence in choosing the [facility] for your medical care. Miguel Lovelace APRN.FEED PREPARATION OPERATOR [facility] [address] [phone] Prescriptions ordered this encounter Disp Refills [...] by MIGUEL LOVELACE CNP on 08/21/18 Normal [facility] PROGRESSon 08-21-2018 Protein mass conc HNO ID: [id number] Author: Miguel Lovelace Service: ? Author Type: Nurse Practitioner Type: Progress Notes Filed: 08/21/2018 12:46 PM Note Text: Subjective The history is provided by the patient. No language instructor was used. Cough This is a new [...] 3-5 days or get worse Miguel Lovelace APRN.FEED PREPARATION OPERATOR [facility] CNCOon 12-22-2017 CNCO Letter Text Erica Velazquez MD [facility] [address] [place] [address] Estefania Herrera December 22, 2017 Estefania Herrera [id number] [facility] [address] Dear Ms. Herrera, It was noted that you did not keep your scheduled appointment on 12-22-17. It is important to contact the office in advance if you are unable to keep your appointment so that it is available for other patients. Your medical care is important to us. Please call our office to reschedule an appointment. Sincerely, Erica Velazquez MD [facility] Consult Reporton 01-05-2017 Consult Report Patient: JITENDRA HERRERA Age: 21 years Sex: Female : 1995 Associated Diagnoses: None Author: KAREN ACKERMAN DPM, RES [facility] Podiatry DepartmentReason for Consult: Active Problems (1)Crush [...] discussed with attending physician, Dr. Jaime Ackerman [phone] ically Signed by: KAREN ACKERMAN DPM, RES on 01/04/2017 13:59 EDTElectronically Co-Signed by: Cecelia ACKERMAN DPM, RES 01/04/2017 14:37 EDTElectronically Co-Signed by: Rene REYES DPM 01/05/2017 18:28 EDT Normal [facility] APTTon 01-04-2017 aPTT 29.9 Second(s) Normal [facility] Comment on above: Result Comment: VERI FIED by Discern Expert. Performed By: #### 1 25642, 4724281, 945423, 087384, 084637, 288775 ####[facility] [address] [place] [address] Medical Director: David Doe MD aPTT 25.9 Second(s) Normal 25.0-36.0 [facility] Comment on above: Performed By: #### 1 36139, 2880654, 231466, 468088, 049101, 507392 ####[facility] Ablupgzp48821 [place] [address] Medical Director: David Doe MD AUTO DIFFon 01-04-2017 Basophils Auto #/vol (Bld) 0.04 x1000 Normal 0.00-0.20 [facility] Comment on above: Performed By: #### 1 03064, 0266045, 115333, 944271, 884250, 267751 ####[facility] Noiiuzvn52107 [place], [place] [id number]) [phone] Director: David Doe MD Basos % 0.5 % Normal [facility] Comment on above: Performed By: #### 1 83277, 0140937, 016888, 651683, 556631, 368887 ####[facility] [address]jfw[address]rv[address] [place] [address]4030 Medical Director: David Doe MD Eos Count 0.10 x1000 Normal 0.00-0.50 [facility] Comment on above: Performed By: #### 1 59857, 5118707, 498794, 751762, 373448, 559833 ####[facility] Sliosltc23252 [place] [address] Medical Director: David Doe MD Eosinophils/100 leukocytes 1.0 % Normal [facility] Comment on above: Performed By: #### 1 07942, 1382915, 252866, 847285, 609781, 716444 ####[facility] Yoeozwtl27378 [place], [place] [id number]) [phone] Director: David Doe MD Lymphocytes 2.84 x1000 Normal 1.20-4.80 [facility] Comment on above: Performed By: #### 1 93145, 7122891, 354547, 049235, 306743, 222527 ####[facility] Hvcqnjgk73491 [place] [address] Medical Director: David Doe MD Lymphocytes/100 leukocytes 29.4 % Normal [facility] Comment on above: Performed By: #### 1 09294, 7581489, 803854, 979286, 146971, 221151 ####[facility] Nitwaxnk51305 [place] [address] Medical Director: David Doe MD [place] Count 0.68 x1000 Normal 0.10-1.00 [facility] Comment on above: Performed By: #### 1 18630, 9354042, 720242, 820770, 183119, 103206 ####[facility] [address]vntekvw50833 [place] [address] Medical Director: David Doe MD Monocytes/100 leukocytes 7.0 % Normal [facility] Comment on above: Performed By: #### 1 51506, 7955454, 293819, 323681, 567133, 862286 ####[facility] Xqhffvmb27345 [place] [address] Medical Director: David Doe MD Neutrophils 5.98 x1000 Normal 1.40-8.80 [facility] Comment on above: Performed By: #### 1 09732, 2979630, 771989, 429319, 413144, 382533 ####[facility] Uxxbrmsm39094 [place] [address] Medical Director: David Doe MD Neutrophils/100 WBC Auto (Bld) 62.0 % Normal [facility] Comment on above: Performed By: #### 1 89013, 1559501, 774548, 366487, 160930, 391454 ####[facility] Zxayflqb28774 [place] [address] Medical Director: David Doe MD COMPMETAon 01-04-2017 Globulin 4.0 g/dL Normal [facility] Comment on above: Performed By: #### 1 27834, 7126486, 947041, 885025, 250167, 789546 ####[facility] Passiyqo91075 [place] [address] Medical Director: David Doe MD Osmolality 277 mOsm/kg Normal 275-295 [facility] Comment on above: Performed By: #### 1 48243, 7710641, 616199, 529107, 228723, 516283 ####[facility] Vxmobpxv08100 [place] [address] Medical Director: David Doe MD eGFR (non-black) mL/min/{1.73_m2} Normal [facility] Comment on above: Result Comment: Afri can [place] GFR Calc Performed By: #### 1 55590, 1137842, 905442, 247037, 782018, 656193 ####[facility] [address]hagyppu01478 [place] [address] Medical Director: David Doe MD Result Comment: Non GFR CalcMedical judgement is necessary to interpret GFR. The calculated GFR may not accurately reflect renal status in patients >70 years, women, acutely ill hospitalized patients and patients with acute renal failure or known renal disease.Note:Creatinine clearance (not GFR) should be used for drug dosing. Albumin/Globulin Ratio 0.8 {ratio} Normal [facility] Comment on above: Performed By: #### 1 95171, 0341114, 838506, 745839, 909211, 839329 ####[facility] Tgoxyqvo69250 [place] [address] Medical Director: Daivd Doe MD BUN/Creatinine Ratio 17.6 mg/mg Normal [facility] Comment on above: Performed By: #### 1 97663, 3283389, 537316, 172833, 143237, 526678 ####[facility] Flytx[address]wl11969 [place] [address] Medical Director: David Doe MD Alk Phos 61 unit/L Normal 45-117 [facility] Comment on above: Performed By: #### 1 90728, 3856627, 975280, 979963, 771366, 935578 ####[facility] [address]cqckyqc28099 [place] [address] Medical Director: David Doe MD Bilirubin (total) 0.41 mg/dL Normal 0.20-1.[address] [facility] Comment on above: Performed By: #### 1 01953, 3453992, 016294, 957664, 394459, 742985 ####[facility] Lrfsnbpv49982 [place] [address] Medical Director: David Doe MD Protein 7.4 g/dL Normal 6.0-8.5 [facility] Comment on above: Performed By: #### 1 82043, 9302000, 148939, 244939, 949002, 250053 ####[facility] [address]rpxqpcj28767 [place] [address] Medical Director: David Doe MD GPT 16 unit/L Normal 13-56 [facility] Comment on above: Result Comment: Mariposa puncture should occur prior to sulfasalazine and/or sulfapyridine administration due to the potential for falsely depressed results.Baseline assay values before administration of sulfasalazine and sulfapyridine therapy would not be affected. Performed By: #### 1 61116, 9946204, 367445, 661094, 700991, 029527 ####[facility] Ubprdfay83681 [place] [address] Medical Director: David Doe MD Creatinine 0.7 mg/dL Normal 0.6-1.0 [facility] Comment on above: Performed By: #### 1 50967, 3336744, 558354, 620491, 177942, 054068 ####[facility] Agjyetjh31702 [place] [address] Medical Director: David Doe MD GOT 14 unit/L Low 15-37 [facility] Comment on above: Result Comment: Mariposa puncture should occur prior to sulfasalazine and/or sulfapyridine administration due to the potential for falsely depressed results.Baseline assay values before administration of sulfasalazine and sulfapyridine therapy would not be affected. Performed By: #### 1 43369, 5418906, 164883, 510872, 533425, 777570 ####[facility] Bqvobuvn20572 [place] [address] Medical Director: David Doe MD Urea nitrogen 13 mg/dL Normal 10-20 [facility] Comment on above: Performed By: #### 1 57056, 7313310, 629903, 666914, 667797, 719859 ####[facility] [address]rkonxkk18592 [place] [address] Medical Director: David Doe MD Glucose mass conc 86 mg/dL Normal 72-[address] [facility] Comment on above: Result Comment: Mariposa puncture should occur prior to sulfasalazine administration due to the potential for falsely depressed results. Venipuncture should occur prior to sulfapyridine administration due to the potential falsely elevated results.Baseline assay values before administration of sulfasalazine and sulfapyridine therapy would not be affected. Performed By: #### 1 96005, 5740905, 706713, 764751, 011522, 512052 ####[facility] Fovbyufs28235 [place] [address] Medical Director: David Doe MD Albumin 3.4 g/dL Normal 3.4-5.0 [facility] Comment on above: Performed By: #### 1 65926, 1353018, 691093, 911731, 188435, 348984 ####[facility] Fxlogrmt06770 [place] [address] Medical Director: David Doe MD CO2 19.0 mmol/L Low 21.0-32.0 [facility] Comment on above: Performed By: #### 1 74738, 3405329, 787428, 698798, 601521, 248728 ####[facility] Bwciudqe14725 [place] [address] Medical Director: David Doe MD Calcium 9.0 mg/dL Normal 8.5-10.5 [facility] Comment on above: Performed By: #### 1 50351, 9675064, 440524, 250473, 126121, 975510 ####[facility] Yrr[address]rtp07640 [place] [address] Medical Director: David Doe MD Potassium molar conc 3.7 mmol/L Normal 3.5-5.1 [facility] Comment on above: Performed By: #### 1 47924, 7467419, 225856, 607678, 637812, 859609 ####[facility] Qaiblebp53581 [place] [address] Medical Director: David Doe MD Sodium 139 mmol/L Normal 135-145 [facility] Comment on above: Performed By: #### 1 15940, 1167196, 008706, 958138, 733396, 324309 ####[facility] Y[address]qvffye58714 [place] [address] Medical Director: David Doe MD Chloride 108 mmol/L Normal 100-109 [facility] Comment on above: Performed By: #### 1 79326, 5251365, 008105, 112894, 852311, 608438 ####[facility] Rwhaavsk21523 [place] [address] Medical Director: David Doe MD CT LOWER [...] Damir SMITH MD Out: 01/04/17 12:59:57 Normal [facility] ED Physician Reporton 2016 ED Physician Report [...] Plan Diagnosis Crush injury of right foot ([id number] S97.81XA, Working, Medical) Plan Condition: Stable. Disposition: ED Discharge to Home was placed.(01/04/2017 13:39:31 EDT, Constant Order). Prescriptions: Launch prescriptions Pharmacy:Percocet 5/325 ([id number]) oral tablet (Prescribe): 1 tabs, ORAL, [id number], PRN: for pain, 24 tabs, 0 Refill(s)doxycycline hyclate 100 mg oral tablet (Prescribe): 100 mg = 1 tabs, ORAL, BID, for 10 days, 20 tabs, 0 Refill(s). Patient was given the following educational materials: Cryotherapy, Ysei-pm-Evwz, Compartment Syndrome of the Foot, Compartment Syndrome of the Foot, Cryotherapy, Fsxl-bf-Kgwf. Follow up with: 8[facility]ILY [facility]YSICIAN Within [...] by: Selene GALVAN MD 01/04/2017 14:19 Normal [facility] ED Progress Noteon 7 ED Progress Note [...] medicatedsig other at bedsidepodiatry coming to see [id number] ASSUMED CARE OF PT, REPORT RECEIVED FROM [...] a little dizzy after trying crutches. Normal [facility] HCGon 01-04-2017 HCG, Qual <1.0 Normal [facility] Comment on above: Result Comment: 0 - 3 Negative3 - 50 Inconclusive>50 Positive Performed By: #### 1 38747, 8478766, 557114, 334432, 995510, 878855 ####[facility] Pvxmbouz62015 [place] [address] Medical Director: David Doe MD HEMOon 01-04-2017 DIFF? No Normal [facility] Comment on above: Performed By: #### 1 05150, 3168203, 760728, 315791, 670880, 794131 ####[facility] Wpkvanpv86112 [place] [address] Medical Director: David Doe MD Erythrocyte distribution width Auto Ratio (RBC) 13.3 % Normal 11.5-14.5 [facility] Comment on above: Performed By: #### 1 13157, 6317134, 630556, 458222, 210073, 058856 ####[facility] Jbimhhfe36707 [place], [place] [address]) [phone] Director: David Doe MD Erythrocytes (RBC) 4.80 x10 Normal 4.20-5.40 [facility] Comment on above: Result Comment: Note : RBC morphology is normal unless otherwise stated. Evaluation performed only if differential is requested. Performed By: #### 1 35247, 4042336, 112964, 093299, 519845, 957410 ####[facility] Ugmvschn48428 [place], [place] [address]) [phone] Director: David Doe MD Hematocrit (HCT) 39.0 % Normal 36.0-46.0 [facility] Comment on above: Performed By: #### 1 67010, 0491478, 346396, 802164, 646077, 373346 ####[facility] Bhjqcwkc25217 [place], [place] [address]) [phone] Director: David Doe MD Hemoglobin mass conc (Bld) 13.1 g/dL Normal 12.0-16.0 [facility] Comment on above: Performed By: #### 1 89066, 4397901, 041702, 909965, 542265, 475861 ####[facility] Asogflhn74549 [place] [address] Medical Director: David Doe MD MCH 27.3 pg Normal 27.0-34.0 [facility] Comment on above: Performed By: #### 1 26747, 0111430, 616057, 270131, 184953, 763310 ####[facility] Xnzoiszg35116 [place] [address] Medical Director: David Doe MD MCHC mass conc (RBC) 33.6 g/dL Normal 32.0-37.0 [facility] Comment on above: Performed By: #### 1 70971, 8759165, 749819, 126791, 565499, 906377 ####[facility] Nfkbodvu56033 [place] [address] Medical Director: David Doe MD MCV 81.3 fL Normal 80.0-100.0 [facility] Comment on above: Performed By: #### 1 83727, 5186859, 623297, 155059, 200033, 982474 ####[facility] Ex[address]homzw73685 [place] [address] Medical Director: David Doe MD Nucleated RBC% 0 /100WC Normal [facility] Comment on above: Performed By: #### 1 05241, 8168664, 065182, 723499, 670064, 130528 ####[facility] Vroadbic88171 [place] [address] Medical Director: David Doe MD Platelet mean volume (PMV) 9.4 fL Normal 7.4-10.4 [facility] Comment on above: Performed By: #### 1 49651, 1870990, 063172, 275908, 268520, 345478 ####[facility] Kvmsfszq45444 [place] [address] Medical Director: David Doe MD Platelets 238 x1000 Normal 150-450 [facility] Comment on above: Performed By: #### 1 65682, 1557965, 715355, 748085, 819218, 867987 ####[facility] Xxqqadwq81243 [place] [address] Medical Director: David Doe MD WBC (Leukocytes) 9.6 10*3/uL Normal [facility] Comment on above: Performed By: #### 1 09105, 9109947, 836151, 232168, 007930, 952330 ####[facility] Jyphlfgw23585 [place] [address] Medical Director: David Doe MD WBC (Leukocytes) 9.6 x10 Normal 4.5-11.0 [facility] Comment on above: Performed By: #### 1 28882, 8463940, 677356, 661964, 694499, 616031 ####[facility] Njskourb85147 [place] [address] Medical Director: David Doe MD PT INRon 01-04-2017 Protime Median 11.1 Second(s) Normal [facility] Comment on above: Result Comment: VERI FIED by Discern Expert. Performed By: #### 1 93916, 3502376, 574937, 669009, 597223, 525504 ####[facility] Zevrdsno25011 [place], [place] [address]) [phone] Director: David Doe MD INR Coag RelTime (PPP) 1.0 {INR} Normal [facility] Comment on above: Result Comment: Norm al reference range for INR on patients not on anticoagulant therapy: 0.9-1.1. General therapeutic range for patients on anticoagulant therapy: 2.0-3.5. Performed By: #### 1 98193, 7384367, 927558, 415183, 506148, 581525 ####[facility] Lfhapilj28517 [place] [address] Medical Director: David Doe MD Protime Patient 11.3 Second(s) Normal 9.8-12.7 [facility] Comment on above: Performed By: #### 1 88081, 2697293, 939627, 450531, 336263, 741215 ####[facility] Lducwdmr70642 [place] [address] Medical Director: David Doe MD XR FOOT [...] Alberto AGUILAR MD Out: 01/04/17 11:49:07 Normal [facility] Vital Signs Date Time Vital Sign Value Performing Clinician Facility 07-15-2023 11:50-0500 Body mass index (BMI) [Ratio] 36.65 kg/m2 [facility] Work Phone: [facility] 07-15-2023 11:50-0500 Body weight 106.14 kg [facility] Work Phone: [facility] 12-04-2021 10:03-0400 Body height 173.35 cm [facility] 12-04-2021 10:03-0400 Body mass index (BMI) [Ratio] 35.22 kg/m2 [facility] 12-04-2021 10:03-0400 Body surface area Derived from formula 2.26 m2 [facility] 12-04-2021 10:03-0400 Body weight 105.83 kg [facility] 12-04-2021 10:03-0400 Diastolic blood pressure 68 mm[Hg] [facility] 12-04-2021 10:03-0400 Heart rate 68 /min [facility] 12-04-2021 10:03-0400 Systolic blood pressure 116 mm[Hg] Shona Lucio [facility] 10-15-2020 01:15-0400 Diastolic blood pressure 71 mm[Hg] Donny Andes DO Work Phone: [employer] Work Phone: 10-15-2020 01:15-0400 SaO2% (BldA) [Mass fraction] 94 % Donny Andes DO Work Phone: [employer] Work Phone: 10-15-2020 01:15-0400 Systolic blood pressure 117 mm[Hg] Donny Andes DO Work Phone: [employer] Work Phone: 10-14-2020 23:18-0400 Body temperature 97.59 [degF] Donny Andes DO Work Phone: [employer] Work Phone: 10-14-2020 23:18-0400 Heart rate 98 /min Donny Andes DO Work Phone: [employer] Work Phone: 10-14-2020 23:18-0400 Respiratory rate 18 /min Donny Andes DO Work Phone: [employer] Work Phone: 09-23-2020 08:31-0400 Body height 172.72 cm 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 Aivo Work Phone: [facility] Work Phone: 09-23-2020 08:31-0400 Body mass index (BMI) [Ratio] 40.9 kg/m2 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 Aivo Work Phone: [facility] Work Phone: 09-23-2020 08:31-0400 Body surface area Derived from formula 2.32 m2 Miguelcristal Sharpe Aivo Work Phone: [facility] Work Phone: 09-23-2020 08:31-0400 Body temperature 964 [degF] 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 CNP Work Phone: [facility] Work Phone: 09-23-2020 08:31-0400 Body weight 122.02 kg 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 CNP Work Phone: [facility] Work Phone: 09-23-2020 08:31-0400 Diastolic blood pressure 80 mm[Hg] 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 CNP Work Phone: [facility] Work Phone: 09-23-2020 08:31-0400 Heart rate 80 /min 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 CNP Work Phone: [facility] Work Phone: 09-23-2020 08:31-0400 Respiratory rate 18 /min 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 CNP Work Phone: [facility] Work Phone: 09-23-2020 08:31-0400 SaO2% (BldA) [Mass fraction] 98 % 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 CNP Work Phone: [facility] Work Phone: 09-23-2020 08:31-0400 Systolic blood pressure 126 mm[Hg] 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 CNP Work Phone: [facility] Work Phone: 04-08-2020 16:25-0500 Respiratory Rate 16 /min 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 [employer] [facility] [place] [place] 04-08-2020 16:20-0500 Pulse (Heart Rate) 86 /min [facility] [place] 04-08-2020 16:20-0500 Pulse Oximetry 98 % [facility] , [place] 04-08-2020 16:00-0500 BP Diastolic 66 mm[Hg] [facility] , [place] 04-08-2020 16:00-0500 BP Systolic 121 mm[Hg] [facility] , [place] 04-08-2020 13:23-0500 Body Temperature 98.4 [degF] [facility] [place] 03-19-2020 19:09-0400 BMI (Body Mass Index) 37.3 kg/m2 [facility] Work Phone: 03-19-2020 19:09-0400 Body weight 111.13 kg [facility] Work Phone: 03-19-2020 19:09-0400 BSA (Body Surface Area) 2.23 m2 [facility] Work Phone: 03-19-2020 19:09-0400 Height 172.72 cm [facility] Work Phone: 03-05-2020 08:30-0400 BMI (Body Mass Index) 37.3 kg/m2 [facility] Work Phone: 03-05-2020 08:30-0400 Body Temperature 95.4 [degF] [facility] Work Phone: 03-05-2020 08:30-0400 Body weight 111.13 kg [facility] Work Phone: 03-05-2020 08:30-0400 BP Diastolic 80 mm[Hg] [facility] Work Phone: 03-05-2020 08:30-0400 BP Systolic 120 mm[Hg] [facility] Work Phone: 03-05-2020 08:30-0400 BSA (Body Surface Area) 2.23 m2 [facility] Work Phone: 03-05-2020 08:30-0400 Height 172.72 cm [facility] Work Phone: 03-05-2020 08:30-0400 Pulse (Heart Rate) 74 /min [facility] Work Phone: 03-05-2020 08:30-0400 Pulse Oximetry 99 % [facility] Work Phone: 03-05-2020 08:30-0400 Respiratory Rate 18 /min [facility] Work Phone: 03-05-2020 08:30-0400 SaO2% (BldA) [Mass fraction] 99 % [facility] Work Phone: [facility] Work Phone: 12-05-2019 08:37-0400 BMI (Body Mass Index) 35.4 kg/m2 [facility] Work Phone: 12-05-2019 08:37-0400 Body Temperature 98.8 [degF] [facility] Work Phone: 12-05-2019 08:37-0400 Body weight 105.69 kg [facility] Work Phone: 12-05-2019 08:37-0400 BP Diastolic 72 mm[Hg] [facility] Work Phone: 12-05-2019 08:37-0400 BP Systolic 116 mm[Hg] [facility] Work Phone: 12-05-2019 08:37-0400 BSA (Body Surface Area) 2.18 m2 [facility] Work Phone: 12-05-2019 08:37-0400 Flow Rate 0 L/min [facility] Work Phone: 12-05-2019 08:37-0400 Height 172.72 cm [facility] Work Phone: 12-05-2019 08:37-0400 Inhaled Oxygen Concentration 21 % [facility] Work Phone: 12-05-2019 08:37-0400 Pulse (Heart Rate) 81 /min [facility] Work Phone: 12-05-2019 08:37-0400 Pulse Oximetry 98 % [facility] Work Phone: 12-05-2019 08:37-0400 Respiratory Rate 18 /min [facility] Work Phone: 12-05-2019 08:37-0400 SaO2% (BldA) [Mass fraction] 98 % [facility] Work Phone: [facility] Work Phone: 11-06-2019 09:02-0400 BMI (Body Mass Index) 36.2 kg/m2 [facility] Work Phone: 11-06-2019 09:02-0400 Body Temperature 95.8 [degF] [facility] [facility] Work Phone: 11-06-2019 09:02-0400 Body weight 107.96 kg [facility] Work Phone: 11-06-2019 09:02-0400 BP Diastolic 80 mm[Hg] [facility] Work Phone: 11-06-2019 09:02-0400 BP Systolic 110 mm[Hg] [facility] Work Phone: 11-06-2019 09:02-0400 BSA (Body Surface Area) 2.2 m2 [facility] Work Phone: 11-06-2019 09:02-0400 Height 172.72 cm [facility] Work Phone: 11-06-2019 09:02-0400 Pulse (Heart Rate) 94 /min [facility] Work Phone: 11-06-2019 09:02-0400 Pulse Oximetry 98 % [facility] Work Phone: 11-06-2019 09:02-0400 Respiratory Rate 18 /min [facility] Work Phone: 11-06-2019 09:02-0400 SaO2% (BldA) [Mass fraction] 98 % [facility] Work Phone: [facility] Work Phone: 10-12-2019 09:53-0400 BMI (Body Mass Index) 38.2 kg/m2 [facility] Work Phone: 10-12-2019 09:53-0400 Body Temperature 98.7 [degF] [facility] Work Phone: 10-12-2019 09:53-0400 Body weight 113.85 kg [facility] Work Phone: 10-12-2019 09:53-0400 BP Diastolic 82 mm[Hg] [facility] Work Phone: 10-12-2019 09:53-0400 BP Systolic 122 mm[Hg] [facility] Work Phone: 10-12-2019 09:53-0400 BSA (Body Surface Area) 2.25 m2 [facility] Work Phone: 10-12-2019 09:53-0400 Flow Rate 0 L/min [facility] Work Phone: 10-12-2019 09:53-0400 Height 172.72 cm [facility] Work Phone: 10-12-2019 09:53-0400 Inhaled Oxygen Concentration 21 % [facility] Work Phone: 10-12-2019 09:53-0400 Pulse (Heart Rate) 97 /min [facility] Work Phone: 10-12-2019 09:53-0400 Pulse Oximetry 98 % [facility] Work Phone: 10-12-2019 09:53-0400 Respiratory Rate 18 /min [facility] Work Phone: 10-12-2019 09:53-0400 SaO2% (BldA) [Mass fraction] 98 % [facility] Work Phone: [facility] Work Phone: 09-14-2019 08:35-0400 BMI (Body Mass Index) 37.7 kg/m2 [facility] Work Phone: 09-14-2019 08:35-0400 Body Temperature 96.6 [degF] [facility] Work Phone: 09-14-2019 08:35-0400 Body weight 112.49 kg [facility] Work Phone: 09-14-2019 08:35-0400 BP Diastolic 80 mm[Hg] [facility] Work Phone: 09-14-2019 08:35-0400 BP Systolic 130 mm[Hg] [facility] Work Phone: 09-14-2019 08:35-0400 BSA (Body Surface Area) 2.24 m2 [facility] Work Phone: 09-14-2019 08:35-0400 Height 172.72 cm [facility] Work Phone: 09-14-2019 08:35-0400 Pulse (Heart Rate) 81 /min [facility] Work Phone: 09-14-2019 08:35-0400 Pulse Oximetry 98 % [facility] Work Phone: 09-14-2019 08:35-0400 Respiratory Rate 18 /min [facility] Work Phone: 09-05-2019 10:26-0400 BMI (Body Mass Index) 37.3 kg/m2 [facility] Work Phone: 09-05-2019 10:26-0400 Body weight 111.13 kg [facility] Work Phone: 09-05-2019 10:26-0400 BSA (Body Surface Area) 2.23 m2 [facility] Work Phone: 09-05-2019 10:26-0400 Height 172.72 cm [facility] Work Phone: 08-17-2019 08:29-0400 BMI (Body Mass Index) 37.3 kg/m2 [facility] Work Phone: 08-17-2019 08:29-0400 Body Temperature 97.9 [degF] [facility] Work Phone: 08-17-2019 08:29-0400 Body weight 111.13 kg [facility] Work Phone: 08-17-2019 08:29-0400 BP Diastolic 80 mm[Hg] [facility] Work Phone: 08-17-2019 08:29-0400 BP Systolic 120 mm[Hg] [facility] Work Phone: 08-17-2019 08:29-0400 BSA (Body Surface Area) 2.23 m2 [facility] Work Phone: 08-17-2019 08:29-0400 Height 172.72 cm [facility] Work Phone: 08-17-2019 08:29-0400 Pulse (Heart Rate) 68 /min [facility] Work Phone: 08-17-2019 08:29-0400 Pulse Oximetry 98 % [facility] Work Phone: 08-17-2019 08:29-0400 Respiratory Rate 18 /min [facility] Work Phone: 07-20-2019 08:36-0500 BMI (Body Mass Index) 39 kg/m2 [facility] Work Phone: 07-20-2019 08:36-0500 Body Temperature 98.4 [degF] [facility] Work Phone: 07-20-2019 08:36-0500 Body weight 116.39 kg [facility] Work Phone: 07-20-2019 08:36-0500 BP Diastolic 80 mm[Hg] [facility] Work Phone: 07-20-2019 08:36-0500 BP Systolic 120 mm[Hg] [facility] Work Phone: 07-20-2019 08:36-0500 BSA (Body Surface Area) 2.27 m2 [facility] Work Phone: 07-20-2019 08:36-0500 Height 172.72 cm [facility] Work Phone: 07-20-2019 08:36-0500 Pulse (Heart Rate) 87 /min [facility] Work Phone: 07-20-2019 08:36-0500 Pulse Oximetry 97 % [facility] Work Phone: 07-20-2019 08:36-0500 Respiratory Rate 18 /min [facility] Work Phone: 07-06-2019 08:43-0500 BMI (Body Mass Index) 39.7 kg/m2 [facility] Work Phone: 07-06-2019 08:43-0500 Body Temperature 97.3 [degF] [facility] Work Phone: 07-06-2019 08:43-0500 Body weight 118.39 kg [facility] Work Phone: 07-06-2019 08:43-0500 BP Diastolic 82 mm[Hg] [facility] Work Phone: 07-06-2019 08:43-0500 BP Systolic 122 mm[Hg] [facility] Work Phone: 07-06-2019 08:43-0500 BSA (Body Surface Area) 2.29 m2 [facility] Work Phone: 07-06-2019 08:43-0500 Height 172.72 cm [facility] Work Phone: 07-06-2019 08:43-0500 Pulse (Heart Rate) 78 /min [facility] Work Phone: 07-06-2019 08:43-0500 Pulse Oximetry 98 % [facility] Work Phone: 07-06-2019 08:43-0500 Respiratory Rate 18 /min [facility] Work Phone: Encounters Encounter Date Encounter Type Care Provider Facility Start: 12-06-2023 End: 12-06-2023 ambulatory ADITYA BILLY Not Available Start: 11-18-2023 End: 11-18-2023 ambulatory ADITYA BILLY Not Available Start: 10-28-2023 End: 10-28-2023 ambulatory ADITYA BILLY Not Available Start: 10-14-2023 End: 10-14-2023 ambulatory LATASHA CARLTON Not Available Start: 10-07-2023 End: 10-07-2023 ambulatory ADITYA NORTONZIO Not Available Start: 09-16-2023 End: 09-16-2023 ambulatory ADITYA BILLY Not Available Start: 08-19-2023 End: 08-19-2023 ambulatory LATASHA CARLTON Not Available Start: 07-15-2023 End: 07-15-2023 ambulatory ADITYA BILLY Not Available Start: 07-15-2023 End: 07-15-2023 flow sheet Aditya Billy DO Work Phone: [facility] Comment on above: Second trimester pre gnancy Start: 06-11-2023 End: 06-11-2023 ambulatory ADIYTA BILLY Not Available Start: 05-12-2023 End: 05-13-2023 [facility] Start: 05-07-2023 End: 05-08-2023 ambulatory MIGUEL F[facility] Start: 05-05-2023 End: 05-06-2023 ambulatory MIGUEL Foy [facility] Start: 04-14-2023 End: 04-14-2023 ambulatory ADITYA GUEVARAO Not Available Start: 03-24-2023 End: 03-27-2023 ambulatory ADITYA Foy [facility] Start: 01-20-2023 End: 01-20-2023 ambulatory [facility] Start: 01-01-2023 End: 01-02-2023 ambulatory [facility] Start: 01-01-2023 Encounter for gynecological examination (general) (routine) without abnormal [facility] Start: 01-01-2023 End: 01-01-2023 Patient encounter procedure [facility] Stewart CNP [facility] Start: 01-01-2023 End: 01-01-2023 Subsequent hospital visit by physician Miguel Stewart CNP Work Phone: [facility] Laboratory Comment on above: Women's annual routi ne gynecological examination Start: 12-16-2021 End: 12-16-2021 Subsequent hospital visit by physician Miguel Stewart CNP Work Phone: [facility] Start: 12-04-2021 Split Srvc Shona Jenkins rne Other [facility] Start: 10-02-2021 End: 10-02-2021 Patient encounter procedure Miguel Stewart CNP Work Phone: [facility] Start: 10-02-2021 End: 10-02-2021 Subsequent hospital visit by physician Miguel Stewart CNP Work Phone: [facility] Comment on above: Women's annual routi ne gynecological examination Start: 10-14-2020 End: 10-15-2020 Emergency department patient visit Donny Alexnalini NAYAK Work Phone: [facility] ED Comment on above: Nausea vomiting and diarrhea (Primary Dx); Generalized abdominal pain Start: 09-23-2020 End: 09-24-2020 [facility] Start: 09-23-2020 End: 09-23-2020 Subsequent hospital visit by physician Miguel Stewart CNP Work Phone: [facility] Start: 09-23-2020 End: 09-23-2020 General Jammie RODAS Work Phone: [facility] Work Phone: Start: 09-23-2020 End: 09-23-2020 Adult health examination 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 CNP Work Phone: [facility] Work Phone: Start: 09-23-2020 End: 09-23-2020 FQHC visit, estab pt 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 CNP Work Phone: [facility] Work Phone: Start: 04-08-2020 End: 04-08-2020 Emergency department patient visit [facility] ED Comment on above: COVID-19 (Primary Dx ); Fatty liver Start: 03-19-2020 End: 03-19-2020 Telemedicine consultation with patient 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 Work Phone: [facility] Work Phone: Start: 03-05-2020 End: 03-05-2020 Established patient 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 Work Phone: [facility] Work Phone: Start: 12-05-2019 End: 12-05-2019 Established patient Poly Franco Work Phone: [facility] Work Phone: Start: 11-06-2019 End: 11-06-2019 Established patient Poly Franco Work Phone: [facility] Work Phone: Start: 10-12-2019 End: 10-12-2019 Patient encounter procedure Paty Rupal Work Phone: [facility] Work Phone: Start: 10-12-2019 End: 10-12-2019 Established patient Poly Franco Work Phone: [facility] Work Phone: Start: 09-14-2019 End: 09-14-2019 Established patient Poly Franco Work Phone: [facility] Work Phone: Start: 09-11-2019 End: 09-11-2019 Telemedicine consultation with patient Poly Franco Work Phone: [facility] Work Phone: Start: 09-05-2019 End: 09-05-2019 Telemedicine consultation with patient Poly Franco Work Phone: [facility] Work Phone: Start: 08-17-2019 End: 09-11-2019 Telemedicine consultation with patient Poly Franco Work Phone: [facility] Work Phone: Start: 08-17-2019 End: 08-17-2019 Established patient 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 Work Phone: [facility] Work Phone: Start: 07-20-2019 End: 07-20-2019 Established patient 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 Work Phone: [facility] Work Phone: Start: 07-06-2019 End: 07-06-2019 Subsequent hospital visit by physician Jackson [facility] Start: 07-06-2019 End: 07-06-2019 Established patient Anh Virk Work Phone: [facility] Work Phone: Start: 07-06-2019 End: 07-06-2019 New patient Allyson Floyd Work Phone: [facility] Work Phone: Start: 02-02-2019 End: 02-04-2019 Subsequent hospital visit by physician [facility] Ultrasound Room [facility] Ultrasound Comment on above: Encounter for intrau terine device placement Start: 08-21-2018 End: 08-23-2018 Patient encounter procedure [facility] Start: 01-04-2017 End: 01-04-2017 Emergency department patient visit [address] [facility] Facility:[id number] Procedures Date Procedure Procedure Detail Performing Clinician Start: 07-15-2023 Urnls dip stick/tabl et rgnt non-auto w/o micrscp Aditya Billy DO Work Phone: Start: 12-16-2021 Assay of blood/uric acid Dedrick Wood PA-C Work Phone: Start: 12-16-2021 C-reactive protein Robel Wood PA-C Work Phone: Start: 12-04-2021 Nerve conduction heaven dies 9-10 studies Shona Lucio Start: 10-02-2021 Microscopic observat ion [Identifier] in Cervix by Cyto stain 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 SEARCH ENGINE MARKETING MANAGER - FEED PREPARATION OPERATOR Work Phone: Start: 10-15-2020 Urinalysis microscop ic only Donny Andnalini DO Work Phone: Start: 10-15-2020 Urnls dip stick/tabl et rgnt auto w/o microscopy Donny And DO Work Phone: Start: 10-15-2020 Ct abdomen & pelvis w/contrast material Donny Andnalini DO Work Phone: Start: 10-15-2020 Assay of lactate Donny And DO Work Phone: Start: 10-15-2020 BASIC METABOLIC PANE L W/ REFLEX TO MG FOR LOW K Donny Andnalini DO Work Phone: Start: 10-15-2020 Hepatic function panel Donny [employer]nalini MiCarga Work Phone: Start: 09-23-2020 Most recent diastoli c blood pressure < 80 mm hg 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 FEED PREPARATION OPERATOR Work Phone: Start: 09-23-2020 Most recent systolic blood pressure <130 mm hg 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 FEED PREPARATION OPERATOR Work Phone: Start: 09-23-2020 Pt-focused hlth risk assmt score doc stnd instrm 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 FEED PREPARATION OPERATOR Work Phone: Start: 09-23-2020 Antibody hiv-1&hiv-2 single result 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 FEED PREPARATION OPERATOR Work Phone: Start: 09-23-2020 Comprehensive metabo lic panel 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 SEARCH ENGINE MARKETING MANAGER - FEED PREPARATION OPERATOR Work Phone: Start: 04-08-2020 Ct thorax w/contrast material Ninoska Marianne Work Phone: Start: 04-08-2020 COVID[facility]19 [facility] Work Phone: Start: 04-08-2020 Urine test visual color cmprsn meths [place] Work Phone: Start: 04-08-2020 Assay of troponin quantitative [place] Work Phone: Start: 04-08-2020 Blood count complete automated [place] Work Phone: Start: 04-08-2020 Comprehensive metabo lic [...] Start: 07-06-2019 Hemoglobin glycosyla marty a1c Allyson Everett Work Phone: Start: 07-06-2019 Psychotherapy w/emely ent 30 minutes Anh Virk Work Phone: Start: 07-06-2019 Assay of free thyroxine Allysonheidi Floyd Work Phone: Start: 07-06-2019 Assay [...] [Identifier] in Cervix by Cyto stain 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 SEARCH ENGINE MARKETING MANAGER - FEED PREPARATION OPERATOR Work Phone: NEGATED: Highlighted row has not occurred!Start: 11-06-2019 currently nursing Miguel Leydi NEGATED: Highlighted row has not occurred!Start: 11-06-2019 currently 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 NEGATED: Highlighted row has not occurred!Start: 07-06-2019 reported medical history Miguel Leydi Plan of Treatment Date Care Activity Detail Author Start: 10-02-2024 Screening for malign ant neoplasm of cervix Pap smear [facility] Start: 08-19-2023 End: 08-19-2023 Patient encounter procedure 08/19/2023 11:00 AM EDT Routine [facility] [address] [facility] [place] [id number] Latasha Carlton PA [address] [place] [address] [facility] Start: 08-19-2023 End: 08-19-2023 Professional / ancillary services management 08/19/2023 10:00 AM EDT Ancillary Procedure [facility] [address] [place] [id number] [facility] Start: 01-20-2023 End: 01-20-2023 Admission to same day surgery center 01/20/2023 Surgery IP Unit Vickie Nichols MD [address] [place] [address] HYSTEROSCOPY - IUD REMOVAL [facility] Comment on above: HYSTEROSCOPY - IUD R EMOVAL Start: 01-20-2023 End: 01-20-2023 Hysteroscopy removal impacted foreign body HYSTEROSCOPY Intrauterine contraceptive device threads lost, initial encounter 01/20/2023 11:10 AM EDT [facility] Start: 01-20-2023 Subsequent hospital visit by physician 01/20/2023 Hospital Encounter IP Unit Vickie Nichols MD [address] [facility] [address] [place] [address] [facility] Start: 12-29-2022 Influenza vaccination Flu vaccine (# 1) [facility] Start: 04-27-2022 End: 04-27-2022 Patient encounter procedure [facility] Start: 01-29-2022 Influenza vaccination [facility] Start: 02-07-2021 Cervical cancer screen Cervical canc er screen [facility] [place] Start: 02-07-2021 Screening for malign ant neoplasm of cervix [facility] Start: 01-29-2021 Influenza vaccination Flu vacc ine (Season Ended) [facility] Work Phone: Start: 09-30-2020 CBC W Auto Different ial panel - Blood [facility] Start: 09-30-2020 Lipid 1996 panel - S stefan or Plasma LIPID PROFILE [facility] Start: 09-23-2020 Psychiatry Health Par [facility] Work Phone: Comment on above: Note: Please make a referral to: Start: 03-26-2020 SARS-CoV-2, KAILA [facility] Work Phone: Start: 03-19-2020 COVID Drive up Testing [facility] Work Phone: Start: 02-06-2020 Medical Establ ished Patient [facility] Work Phone: Start: 01-30-2020 Influenza vaccination Flu vaccine (# 1) [place], [place] Start: 11-09-2019 Medical Establ ished Patient [facility] Work Phone: Start: 10-11-2019 Medical Establ ished Patient [facility] Work Phone: Start: 09-14-2019 Medical Establ ished Patient [facility] Work Phone: Start: 08-17-2019 Medical Establ ished Patient [facility] Work Phone: Start: 07-20-2019 Medical Establ ished Patient [facility] Work Phone: Start: 07-13-2019 Lipid 1996 panel [facility] Work Phone: Start: 02-14-2019 End: 02-14-2019 Office Visit 02/14/2019 Office Visit Obstetrics and Gynecology Pilar Marie APRN - ANNETTA [address], [place] [id number] [facility] [employer] Start: 02-07-2019 Chlamydia screen Chlamydia screen [place], [place] Start: 02-07-2019 Screening for Chlamy valentino trachomatis Chlamydia screen [facility] Start: 01-29-2019 Influenza vaccination Flu vaccine (# 1) [place], [place] Start: 10-29-2017 DTaP/Tdap/Td vaccine (2 - Td or Tdap) DTaP/Tdap/Td vaccine (2 - Td or Tdap) [facility] Start: 10-29-2017 DTaP/Tdap/Td vaccine (2 - Td) DTaP/Tdap/Td vaccine (2 - Td) [place], [place] Start: 2014 Hepatitis C screening Hepatitis C sc reen [facility] Start: 2012 COVID-19 Vaccine (1) COVID-19 Vaccin e (1) [facility] Work Phone: Start: 2011 HIV screen HIV screen [place], [place] Start: 2011 HIV screening HIV screen ABIGAIL [facility] Start: 2011 HPV vaccine (1 - Fem shiela 3-dose series) HPV vaccine (1 - Female 3-dose series) [place], [place] Start: 2009 Varicella Vaccine (1 of 2 - 13+ 2-dose series) Varicella Vaccine (1 of 2 - 13+ 2-dose series) [place] Start: 2008 COVID-19 Vaccine (1) COVID-19 Vaccin e (1) [facility]: Start: 2008 Depression Screen Depression Screen [facility] [employer] Start: 2007 HPV vaccine (1 - 2-d ose series) HPV vaccine (1 - 2-dose series) [facility] [employer] Start: 2007 HPV vaccine (1 - Fem shiela 2-dose series) HPV vaccine (1 - Female 2-dose series) [facility] [employer] Phone: Start: 2001 COVID-19 Vaccine (1) COVID-19 Vaccin e (1) [facility] [employer] Start: 1997 Varicella vaccine (1 of 2 - 2-dose childhood series) Varicella vaccine (1 of 2 - 2-dose childhood series) [facility] [employer] Start: 1996 COVID-19 Vaccine (#1) COVID-19 Vacci ne (#1) [facility] [employer] Start: 1996 Hepatitis C screening Hepatitis C sc reen [facility] Phone: End: 12-16-2021 GLENNY Screen with Reflex [facility] Phone: Comment on above: Once for 1 Occurrenc es starting 12/16/2021 until 12/16/2021 End: 10-02-2021 Cytopathology procedure, preparation of smear, genital source PAP SMEAR Lab Routine Women's annual routine gynecological examination 1 Occurrences starting 10/02/2021 until 10/02/2021 [facility] Phone: Comment on above: 1 Occurrences starti ng 10/02/2021 until 10/02/2021 End: 01-01-2023 Cytopathology procedure, preparation of smear, genital source PAP SMEAR Lab Routine Women's annual routine gynecological examination 1 Occurrences starting 01/01/2023 until 01/01/2023 [employer] Phone: Comment on above: 1 Occurrences starti ng 01/01/2023 until 01/01/2023 End: 12-16-2021 HLA-B27 Antigen [employer] Phone: Comment on above: Once for 1 Occurrenc es starting 12/16/2021 until 12/16/2021 End: 07-06-2019 Insulin, free Insulin, free Lab Routine Once for 1 Occurrences starting 07/06/2019 until 07/06/2019 [employer] Phone: Comment on above: Once for 1 Occurrenc es starting 07/06/2019 until 07/06/2019 Insulin, free Insulin, free La b Routine 07/06/2019 9:31 AM EST [employer] Phone: End: 12-16-2021 Lyme Ab BON [employer] Phone: Comment on above: Once for 1 Occurrenc es starting 12/16/2021 until 12/16/2021 Immunizations Immunization Date Immunization Notes Care Provider Em de la cruz 10-30-2007 tetanus toxoid, redu katelyn diphtheria toxoid, and acellular pertussis vaccine, adsorbed [facility] [employer] [place] Payers Date Payer Category Payer Medicaid [id number] 2023 Unknown [facility] [employer] [id number] 2023-Present [address] [address] [place] [address] [id number] 2023 Unknown [id number] 2022 Unknown [id number] 2018 Unknown [id number] [id number] 2016 Unknown [employer] [address] xxxxxxxxxxxx 2016-Present [phone] [address] [place] [address] xxxxxxxxxxxx [id number] 1996 Unknown [id number] [id number] 1996 Unknown [id number] 2.16.840.1.081595.3.579.2.173 1996 Unknown [id number] 2.16.840.1.338287.3.579.2.173 1996 Unknown [id number] 2.16.840.1.381002.3.579.2.173 1996 Unknown [id number] 2.16.840.1.908580.3.579.2.173 1996 Unknown [id number] 2.16.840.1.717426.3.579.2.173 1996 Unknown [id number] 2.16.840.1.707764.3.579.2.173 1996 Unknown [id number] 2.16.840.1.519230.3.579.2.173 1996 Unknown [id number] 2.16.840.1.773967.3.579.2.125 9 1996 Unknown [id number] 2.16.840.1.346679.3.579.2.125 9 1996 Unknown [id number] 2.16.840.1.553150.3.579.2.125 9 1996 Unknown [id number] 2.16.840.1.748591.3.579.2.125 9 1996 Unknown [id number] 2.16.840.1.372315.3.579.2.125 9 1996 Unknown [id number] 2.16.840.1.571516.3.579.2.125 9 1996 Unknown [id number] 2.16.840.1.369866.3.579.2.125 9 1996 Unknown [id number] 2.16.840.1.656345.3.579.2.125 9 1996 Unknown [id number] 2.16.840.1.928693.3.579.2.125 9 1996 Unknown [id number] 2.16.840.1.198116.3.579.2.125 9 Unknown [id number] Social History Date Type Detail Facility Assertion [facility] Work Phone: Assertion Emotional stress (finding) [facility] Work Phone: Tobacco smoking status Unknown if ever smoked [facility] [employer] [facility] Work Phone: Assertion Sexually active (finding) [facility] [employer] [facility] Work Phone: Assertion Gender identity finding (finding) [facility] [employer] [facility] Work Phone: Assertion Finding of sexua l orientation (finding) [facility] [employer] [facility] Work Phone: Start: 10-13-2013 End: 02-07-2018 Tobacco smoking status NHIS Never smoker [place], [place] Start: 02-07-2018 End: 01-01-2023 Alcohol intake Current drinker of alcohol (finding) [facility] [employer] Work Phone: Start: 12-12-2015 Alcohol Comment occassionally [place], [place] Start: 1996 Sex Assigned At Not on file [place] [place] Start: 10-13-2013 End: 04-08-2020 Tobacco use and exposure Never used [place] Exposure to SARS-CoV-2 (event) Not sure [place] Start: 02-07-2018 Alcohol intake Yes [place], [place] Assertion Family illness (situation) [facility] [employer] [facility] Work Phone: Assertion Single person (finding) [facility] Work Phone: Start: *Tobacco [facility] Start: 04-15-2023 [facility] NEGATED: Highlighted row Assertion Exposure to pollution (event) [facility] Work Phone: NEGATED: Highlighted row Assertion Tobacco user (finding) [facility] Work Phone: NEGATED: Highlighted row Assertion Current drinker of alcohol (finding) [facility] Work Phone: NEGATED: Highlighted row Assertion Finding relating to drug misuse behavior (finding) [facility] Work Phone: Mental Status Date Assessment Result Facility Cognitive function Cognitive fun ctioning was normal Cognitive function finding (finding) [facility] Work Phone: Clinical Notes 11-06-2019 to [...] Aditya Cervantes DO documented in this encounter [facility] 09-23-2020 Evaluation note Includes: Assessments for all patient encounters Findings Anxiety disorder NOS [facility] with Jammie RODAS 09/23/2020 Assessment of visit for: screening for human immunodeficiency virus Medical Established Patient with 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 [facility] 09/23/2020 Diabetes Risk Test Score was three score 09/23/2020 Medical Established Patient with 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 [facility] 09/23/2020 Morbid obesity Medical Established Patient with 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 [facility] 09/23/2020 Routine adult history and physical (18-64 yrs) without abnormal findings Medical Established Patient with 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 [facility] 09/23/2020 Z68.41 - Body mass index [BMI]40.0-44.9, adult Medical Established Patient with 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 [facility] 09/23/2020 Cough Telemedicine Establi sted Patient with 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 [facility] 03/19/2020 Exposure to a viral disease Telemedicine Establisted Patient with 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 [facility] 03/19/2020 Obesity due to excess calories Telemedic ine Establisted Patient with 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 [facility] 03/19/2020 Z68.37 - Body mass index [BM I] 37.0-37.9, adult Telemedicine Establisted Patient with 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 [facility] 03/19/2020 Obesity due to excess calories Medical E stablished Patient with 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 [facility] 03/05/2020 Z68.37 - Body mass index [BM I] 37.0-37.9, adult Medical Established Patient with 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 [facility] 03/05/2020 Obesity due to excess calories Medical E stablished Patient with Poly Wagonerle [facility] 12/05/2019 R21 - Rash and other nonspecific skin eruption Medical Established Patient with Poly Salvador [facility] 12/05/2019 Z68.35 - Body mass index (BM I) 35.0-35.9, adult Medical Established Patient with Poly Wagonerle [facility] 12/05/2019 Obesity due to excess calories Medical E stablished Patient with Poly Salvador [facility] 11/06/2019 Z68.36 - Body mass index (BM I) 36.0-36.9, adult Medical Established Patient with Poly Wagonerle [facility] 11/06/2019 Obesity due to excess calories Medical E stablished Patient with Poly Salvador [facility] 10/12/2019 Z68.38 - Body mass index (BM I) 38.0-38.9, adult Medical Established Patient with Poly Salvador [facility] 10/12/2019 L25.5 - Unspecified contact dermatitis due to plants, except food Medical Established Patient with Poly Salvador [facility] 09/14/2019 Obesity due to excess calories Medical E stablished Patient with Poly Salvador [facility] 09/14/2019 Z68.37 - Body mass index (BM I) 37.0-37.9, adult Medical Established Patient with Polykamryn Wagonerle [facility] 09/14/2019 L25.5 - Unspecified contact dermatitis due to plants, except food Telemedicine with Poly Franco FEED PREPARATION OPERATOR 09/11/2019 Obesity due to excess calories Telemedic ine with Poly Franco FEED PREPARATION OPERATOR 09/11/2019 Z68.37 - Body mass index (BM I) 37.0-37.9, adult Telemedicine with Poly Franco FEED PREPARATION OPERATOR 09/11/2019 Dermatitis due to contact wi th poison spencer Telemedicine with Poly Franco FEED PREPARATION OPERATOR 09/05/2019 Obesity due to excess calories Telemedic ine with Poly Franco FEED PREPARATION OPERATOR 09/05/2019 Z68.37 - Body mass index (BM I) 37.0-37.9, adult Telemedicine with Poly Franco FEED PREPARATION OPERATOR 09/05/2019 Obesity due to excess calories Medical E stablished Patient with 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 FEED PREPARATION OPERATOR 08/17/2019 Z68.37 - Body mass index (BM I) 37.0-37.9, adult Medical Established Patient with 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 FEED PREPARATION OPERATOR 08/17/2019 Generalized anxiety disorder BH Establis hed Patient with Anh VIDAL 07/06/2019 Anxiety disorder NOS Medical New Patient with Allyson Nye FEED PREPARATION OPERATOR 07/06/2019 Depression Medical New Patient with Allyson Dundalk FEED PREPARATION OPERATOR 07/06/2019 Diabetes Risk Test Score was one score Medical New Patient with Allyson Everett FEED PREPARATION OPERATOR 07/06/2019 Idiopathic insomnia Medical New Patient with Allyson Everett FEED PREPARATION OPERATOR 07/06/2019 Obesity due to excess calories Medical N ew Patient with Allyson Dundalk FEED PREPARATION OPERATOR 07/06/2019 Z68.39 - Body mass index (BM I) 39.0-39.9 adult Medical New Patient with Allyson Floyd FEED PREPARATION OPERATOR 07/06/2019 [facility] Work Phone: 1(398) 601-807606-08-2020 History general Narrative - Reported Includes: Medical History in patient's chart Description Last Updated Not currently nursing 11/06/2019 Not 11/06/2019 No reported medical history or no signif icant history 07/06/2019 [facility] Work Phone: Evaluation note Includes: Assessments for all patient encounters Findings Encounter Date Assessment of visit for: scr eening for human immunodeficiency virus Medical Established Patient with 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 FEED PREPARATION OPERATOR 09/23/2020 Diabetes Risk Test Score was three score 09/23/2020 Medical Established Patient with 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 [facility] 09/23/2020 Morbid obesity Medical Established Patient with 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 [facility] 09/23/2020 Routine adult history and ph ysical (18-64 yrs) without abnormal findings Medical Established Patient with 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 [facility] 09/23/2020 Z68.41 - Body mass index [BMI]40.0-44.9, adult Medical Established Patient with Miugel Sharpe [facility] 09/23/2020 Cough Telemedicine Establi sted Patient with 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 [facility] 03/19/2020 Exposure to a viral disease Telemedicine Establisted Patient with Miguelcristal Sharpe [facility] 03/19/2020 Obesity due to excess calories Telemedic ine Establisted Patient with 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 [facility] 03/19/2020 Z68.37 - Body mass index [BM I] 37.0-37.9, adult Telemedicine Establisted Patient with Miguelcristal Sharpe [facility] 03/19/2020 Obesity due to excess calories Medical E stablished Patient with 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 [facility] 03/05/2020 Z68.37 - Body mass index [BM I] 37.0-37.9, adult Medical Established Patient with 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 [facility] 03/05/2020 Obesity due to excess calories Medical E stablished Patient with Poly Wagonerle [facility] 12/05/2019 R21 - Rash and other nonspec ific skin eruption Medical Established Patient with Poly Salvador [facility] 12/05/2019 Z68.35 - Body mass index (BM I) 35.0-35.9, adult Medical Established Patient with Polykamryn Wagonerle [facility] 12/05/2019 Obesity due to excess calories Medical E stablished Patient with Poly Salvador [facility] 11/06/2019 Z68.36 - Body mass index (BM I) 36.0-36.9, adult Medical Established Patient with Poly Salvador [facility] 11/06/2019 Obesity due to excess calories Medical E stablished Patient with Poly Salvador [facility] 10/12/2019 Z68.38 - Body mass index (BM I) 38.0-38.9, adult Medical Established Patient with Poly Salvador [facility] 10/12/2019 L25.5 - Unspecified contact dermatitis due to plants, except food Medical Established Patient with Poly Salvador [facility] 09/14/2019 Obesity due to excess calories Medical E stablished Patient with Poly Salvador [facility] 09/14/2019 Z68.37 - Body mass index (BM I) 37.0-37.9, adult Medical Established Patient with Poly Franco FEED PREPARATION OPERATOR 09/14/2019 L25.5 - Unspecified contact dermatitis due to plants, except food Telemedicine with Poly Franco FEED PREPARATION OPERATOR 09/11/2019 Obesity due to excess calories Telemedicine with Poly Franco [facility] 09/11/2019 Z68.37 - Body mass index (BM I) 37.0-37.9, adult Telemedicine with Poly Franco FEED PREPARATION OPERATOR 09/11/2019 Dermatitis due to contact wi th poison spencer Telemedicine with Poly Franco [facility] 09/05/2019 Obesity due to excess calories Telemedicine with Poly Franco [facility] 09/05/2019 Z68.37 - Body mass index (BM I) 37.0-37.9, adult Telemedicine with Poly Franco FEED PREPARATION OPERATOR 09/05/2019 Obesity due to excess calories Medical E stablished Patient with 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 FEED PREPARATION OPERATOR 08/17/2019 Z68.37 - Body mass index (BM I) 37.0-37.9, adult Medical Established Patient with 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 FEED PREPARATION OPERATOR 08/17/2019 Generalized anxiety disorder BH Establis hed Patient with Anh VIDAL 07/06/2019 Anxiety disorder NOS Medical New Patient with Allyson Nye FEED PREPARATION OPERATOR 07/06/2019 Depression Medical New Patient with Allyson Dundalk FEED PREPARATION OPERATOR 07/06/2019 Diabetes Risk Test Score was one score M edical New Patient with Allyson Everett FEED PREPARATION OPERATOR 07/06/2019 Idiopathic insomnia Medical New Patient with Allyson Everett FEED PREPARATION OPERATOR 07/06/2019 Obesity due to excess calories Medical N ew Patient with Allyson Everett FEED PREPARATION OPERATOR 07/06/2019 Z68.39 - Body mass index (BM I) 39.0-39.9 adult Medical New Patient with Allyson Everett FEED PREPARATION OPERATOR 07/06/2019 [facility] Work Phone: Evaluation note* Diagnosis Nausea vomiting and diarrhea- Primary Nausea with vomiting Generalized abdominal pain Abdominal pain, generalized documented in this encounter [facility] Phone: evaluation note* Diagnosis Women's annual routine gynecological examination documented in this encounter [employer] Phone: evaluation note* Diagnosis Women's annual routine gynecological examination Intrauterine contraceptive device threads lost, initial encounter documented in this encounter [facility] Diagnosis Second trimester state, incidental documented in this encounter [facility] Narrative History of Present Illness not supported for this document type No History of Present Illness [facility] Work Phone: Hospital Discharge instructions* Attachments The following attachments cannot be sent through Care Everywhere. * Abdominal Pain (Gambian) * Nausea and Vomiting (Gambian) * Di[facility] (Gambian) [facility] Instructions Instructions not supported for this document type No Instructions [facility] [employer] [facility] Work Phone: Patient problem outcome Narrative Includes: Evaluations & Outcomes for active Goals No Outcomes [facility] Work Phone: Reason for referral (narrative)No Reason for Referral [facility] [employer] [facility] Work Phone: Review of systems Narrative - Reported Review of Systems not supported for this document type No Review of Systems [facility] [employer] [facility] Work Phone: Summary Purpose Family History No Family History Records Found Description Last Updated Maternal history of rheumatoid arthritis 07/06/2019 Maternal history of rheumatologic disord er Fibromyalgia 07/06/2019 Maternal history of systemic lupus eryth ematosus 07/06/2019 Paternal history of type 1 diabetes marino itus 07/06/2019 Advance Directives No Advanced Directives Records FoundDocuments on File Type Date Recorded Patient Hot Water Heater Installer Expl anation Advance Directives and Living Will Power of Blast Furnace Keeper Documents on File Type Date Recorded Patient Hot Water Heater Installer Expl anation ACP-Advance Directive ACP-Power of Blast Furnace Keeper Documents on File Type Date Recorded Patient Hot Water Heater Installer Expl anation Advance Directives and Living Will Power of Blast Furnace Keeper Reason for Referral No Reason for Referral [...] Assessments Findings Encounter Date Generalized anxiety disorder Establis [facility] Patient with Anh VIDAL 07/06/2019 Anxiety disorder NOS Medical New Patient with Allyson Floyd FEED PREPARATION OPERATOR 07/06/2019 Depression Medical New Patient with Allyson Floyd FEED PREPARATION OPERATOR 07/06/2019 Diabetes Risk Test Score was one score Medical New Patient with Allyson Floyd FEED PREPARATION OPERATOR 07/06/2019 Idiopathic insomnia Medical New Patient with Allyson Floyd FEED PREPARATION OPERATOR 07/06/2019 Obesity due to excess calories Medical N ew Patient with Allyson Floyd FEED PREPARATION OPERATOR 07/06/2019 Z68.39 - Body mass index (BM I) 39.0-39.9 adult Medical New Patient with Allyson Floyd FEED PREPARATION OPERATOR 07/06/2019 Findings Encounter Date Obesity due to excess calories Medical E stablished Patient with Poly Wagonerle [facility] 10/12/2019 Z68.38 - Body mass index (BM I) 38.0-38.9, adult Medical Established Patient with Poly Wagonerle [facility] 10/12/2019 L25.5 - Unspecified contact dermatitis due to plants, except food Medical Established Patient with Poly Wagonerle [facility] 09/14/2019 Obesity due to excess calories Medical E stablished Patient with Poly Salvador [facility] 09/14/2019 Z68.37 - Body mass index (BM I) 37.0-37.9, adult [facility] L25.5 - Unspecified contact dermatitis due to plants, except food Telemedicine with Poly Salvador [facility] 09/11/2019 Obesity due to excess calories Telemedicine with Poly [facility] 09/11/2019 Z68.37 - Body mass index (BM I) 37.0-37.9, adult Telemedicine with Poly Salvador [facility] 09/11/2019 Dermatitis due to contact wi th poison spencer Telemedicine with Poly Salvador [facility] 09/05/2019 Obesity due to excess calories Telemedicine with Poly Salvador [facility] 09/05/2019 Z68.37 - Body mass index (BM I) 37.0-37.9, adult Telemedicine with Poly Salvador [facility] 09/05/2019 Obesity due to excess calories Medical E stablished Patient with 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 [facility] 08/17/2019 Z68.37 - Body mass index (BM I) 37.0-37.9, adult Medical Established Patient with Miguel Leydi [facility] 08/17/2019 Generalized anxiety disorder BH Establis hed Patient with Anh RODAS-S 07/06/2019 Anxiety disorder NOS Medical New Patient with Allyson Everett FEED PREPARATION OPERATOR 07/06/2019 Depression Medical New Patient with Allyson Evertet FEED PREPARATION OPERATOR 07/06/2019 Diabetes Risk Test Score was one score Medical New Patient with Allyson Dundalk FEED PREPARATION OPERATOR 07/06/2019 Idiopathic insomnia Medical New Patient with Allyson Everett FEED PREPARATION OPERATOR 07/06/2019 Obesity due to excess calories Medical N ew Patient with Allyson Everett FEED PREPARATION OPERATOR 07/06/2019 Z68.39 - Body mass index (BM I) 39.0-39.9 adult Medical New Patient with Allyson Floyd FEED PREPARATION OPERATOR 07/06/2019 Findings Encounter Date Obesity due to excess calories Medical E stablished Patient with Miguel Leydi FEED PREPARATION OPERATOR 08/17/2019 Z68.37 - Body mass index (BM I) 37.0-37.9, adult Medical Established Patient with Miguel Leydi FEED PREPARATION OPERATOR 08/17/2019 Generalized anxiety disorder BH Establis hed Patient with Anh RODAS-S 07/06/2019 Anxiety disorder NOS Medical New Patient with Allyson Everett FEED PREPARATION OPERATOR 07/06/2019 Depression Medical New Patient with Allyson Everett FEED PREPARATION OPERATOR 07/06/2019 Diabetes Risk Test Score was one score Medical New Patient with Allyson Everett FEED PREPARATION OPERATOR 07/06/2019 Idiopathic insomnia Medical New Patient with Allyson Everett FEED PREPARATION OPERATOR 07/06/2019 Obesity due to excess calories Medical N ew Patient with Allyson Everett FEED PREPARATION OPERATOR 07/06/2019 Z68.39 - Body mass index (BM I) 39.0-39.9 adult Medical New Patient with Allyson Floyd FEED PREPARATION OPERATOR 07/06/2019 Findings Encounter Date Dermatitis due to contact wi th poison spencer Telemedicine with Poly Salvador FEED PREPARATION OPERATOR 09/05/2019 Obesity due to excess calories Telemedicine with Poly Salvador FEED PREPARATION OPERATOR 09/05/2019 Z68.37 - Body mass index (BM I) 37.0-37.9, adult Telemedicine with Poly Salvador FEED PREPARATION OPERATOR 09/05/2019 Obesity due to excess calories Medical E stablished Patient with Miguel Leydi FEED PREPARATION OPERATOR 08/17/2019 Z68.37 - Body mass index (BM I) 37.0-37.9, adult Medical Established Patient with Miguel Leydi FEED PREPARATION OPERATOR 08/17/2019 Generalized anxiety disorder BH Establis hed Patient with Anh VIDAL 07/06/2019 Anxiety disorder NOS Medical New Patient with Allyson Everett FEED PREPARATION OPERATOR 07/06/2019 Depression Medical New Patient with Allyson Dundalk FEED PREPARATION OPERATOR 07/06/2019 Diabetes Risk Test Score was one score Medical New Patient with Allyson Dundalk FEED PREPARATION OPERATOR 07/06/2019 Idiopathic insomnia Medical New Patient with Allyson Dundalk FEED PREPARATION OPERATOR 07/06/2019 Obesity due to excess calories Medical N ew Patient with Allyson Everett FEED PREPARATION OPERATOR 07/06/2019 Z68.39 - Body mass index (BM I) 39.0-39.9 adult Medical New Patient with Allyson Dundalk FEED PREPARATION OPERATOR 07/06/2019 Findings Encounter Date L25.5 - Unspecified contact dermatitis due to plants, except food Telemedicine with Poly Franco [facility] 09/11/2019 Obesity due to excess calories Telemedicine with Poly Salvador [facility] 09/11/2019 Z68.37 - Body mass index (BM I) 37.0-37.9, adult Telemedicine with Poly [facility] 09/11/2019 Dermatitis due to contact wi th poison spencer Telemedicine with Poly Wagonerle [facility] 09/05/2019 Obesity due to excess calories Telemedicine with Poly Salvador [facility] 09/05/2019 Z68.37 - Body mass index (BM I) 37.0-37.9, adult Telemedicine with Poly Wagonerle FEED PREPARATION OPERATOR 09/05/2019 Obesity due to excess calories Medical E stablished Patient with Miguel Leydi FEED PREPARATION OPERATOR 08/17/2019 Z68.37 - Body mass index (BM I) 37.0-37.9, adult Medical Established Patient with Miguel Leydi FEED PREPARATION OPERATOR 08/17/2019 Generalized anxiety disorder BH Establis hed Patient with Anh VIDAL 07/06/2019 Anxiety disorder NOS Medical New Patient with Allyson Dundalk FEED PREPARATION OPERATOR 07/06/2019 Depression Medical New Patient with Allyson Everett FEED PREPARATION OPERATOR 07/06/2019 Diabetes Risk Test Score was one score Medical New Patient with Allyson Dundalk FEED PREPARATION OPERATOR 07/06/2019 Idiopathic insomnia Medical New Patient with Allyson Dundalk FEED PREPARATION OPERATOR 07/06/2019 Obesity due to excess calories Medical N ew Patient with Allyson Dundalk FEED PREPARATION OPERATOR 07/06/2019 Z68.39 - Body mass index (BM I) 39.0-39.9 adult Medical New Patient with Allyson Everett FEED PREPARATION OPERATOR 07/06/2019 Findings Encounter Date L25.5 - Unspecified contact dermatitis due to plants, except food Medical Established Patient with Poly Franco FEED PREPARATION OPERATOR 09/14/2019 Obesity due to excess calories Medical E stablished Patient with Poly Franco [facility] 09/14/2019 Z68.37 - Body mass index (BM I) 37.0-37.9, adult Medical Established Patient with Poly Franco [facility] 09/14/2019 L25.5 - Unspecified contact dermatitis due to plants, except food Telemedicine with Poly Franco [facility] 09/11/2019 Obesity due to excess calories Telemedicine with Poly Franco [facility] 09/11/2019 Z68.37 - Body mass index (BM I) 37.0-37.9, adult Telemedicine with Poly Franco [facility] 09/11/2019 Dermatitis due to contact wi th poison spencer Telemedicine with Poly Franco [facility] 09/05/2019 Obesity due to excess calories Telemedicine with Poly Franco [facility] 09/05/2019 Z68.37 - Body mass index (BM I) 37.0-37.9, adult Telemedicine with Ploy Franco [facility] 09/05/2019 Obesity due to excess calories Medical E stablished Patient with 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 [facility] 08/17/2019 Z68.37 - Body mass index (BM I) 37.0-37.9, adult Medical Established Patient with 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 [facility] 08/17/2019 Generalized anxiety disorder BH Establis hed Patient with Anh VIDAL 07/06/2019 Anxiety disorder NOS Medical New Patient with Allyson Nye FEED PREPARATION OPERATOR 07/06/2019 Depression Medical New Patient with Allyson Dundalk FEED PREPARATION OPERATOR 07/06/2019 Diabetes Risk Test Score was one score Medical New Patient with Allyson Everett FEED PREPARATION OPERATOR 07/06/2019 Idiopathic insomnia Medical New Patient with Allyson Everett FEED PREPARATION OPERATOR 07/06/2019 Obesity due to excess calories Medical N ew Patient with Allyson Dundalk FEED PREPARATION OPERATOR 07/06/2019 Z68.39 - Body mass index (BM I) 39.0-39.9 adult Medical New Patient with Allyson Everett FEED PREPARATION OPERATOR 07/06/2019 Findings Encounter Date Obesity due to excess calories Medical E stablished Patient with Poly Franco FEED PREPARATION OPERATOR 11/06/2019 Z68.36 - Body mass index (BM I) 36.0-36.9, adult Medical Established Patient with Poly Franco [facility] 11/06/2019 Obesity due to excess calories Medical E stablished Patient with Poly Franco FEED PREPARATION OPERATOR 10/12/2019 Z68.38 - Body mass index (BM I) 38.0-38.9, adult Medical Established Patient with Poly Franco [facility] 10/12/2019 L25.5 - Unspecified contact dermatitis due to plants, except food Medical Established Patient with Poly Franco FEED PREPARATION OPERATOR 09/14/2019 Obesity due to excess calories Medical E stablished Patient with Poly Franco [facility] 09/14/2019 Z68.37 - Body mass index (BM I) 37.0-37.9, adult Medical Established Patient with Poly Franco [facility] 09/14/2019 L25.5 - Unspecified contact dermatitis due to plants, except food Telemedicine with Poyl Franco [facility] 09/11/2019 Obesity due to excess calories Telemedicine with Poly Franco [facility] 09/11/2019 Z68.37 - Body mass index (BM I) 37.0-37.9, adult Telemedicine with Poly Franco [facility] 09/11/2019 Dermatitis due to contact wi th poison spencer Telemedicine with Poly Franco [facility] 09/05/2019 Obesity due to excess calories Telemedicine with Poly Franco [facility] 09/05/2019 Z68.37 - Body mass index (BM I) 37.0-37.9, adult Telemedicine with Poly Franco [facility] 09/05/2019 Obesity due to excess calories Medical E stablished Patient with 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 [facility] 08/17/2019 Z68.37 - Body mass index (BM I) 37.0-37.9, adult Medical Established Patient with 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 [facility] 08/17/2019 Generalized anxiety disorder BH Establis hed Patient with Anh VIDAL 07/06/2019 Anxiety disorder NOS Medical New Patient with Allyson Everett FEED PREPARATION OPERATOR 07/06/2019 Depression Medical New Patient with Allyson Dundalk FEED PREPARATION OPERATOR 07/06/2019 Diabetes Risk Test Score was one score Medical New Patient with Allyson Everett FEED PREPARATION OPERATOR 07/06/2019 Idiopathic insomnia Medical New Patient with Allyson Dundalk FEED PREPARATION OPERATOR 07/06/2019 Obesity due to excess calories Medical N ew Patient with Allyson Dundalk FEED PREPARATION OPERATOR 07/06/2019 Z68.39 - Body mass index (BM I) 39.0-39.9 adult Medical New Patient with Allyson Dundalk FEED PREPARATION OPERATOR 07/06/2019 Findings Encounter Date Obesity due to excess calories Medical E stablished Patient with Poly Franco [facility] 12/05/2019 R21 - [facility] Established Patient with Poly Wagonerle [facility] 12/05/2019 Z68.35 - Body mass index (BM I) 35.0-35.9, adult Medical Established Patient with Poly Franco [facility] 12/05/2019 Obesity due to excess calories Medical E stablished Patient with Poly Wagonerle [facility] 11/06/2019 Z68.36 - Body mass index (BM I) 36.0-36.9, adult Medical Established Patient with Poly Franco [facility] 11/06/2019 Obesity due to excess calories Medical E stablished Patient with Poly Franco [facility] 10/12/2019 Z68.38 - Body mass index (BM I) 38.0-38.9, adult Medical Established Patient with Poly Franco [facility] 10/12/2019 L25.5 - Unspecified contact dermatitis due to plants, except food Medical Established Patient with Poly Franco [facility] 09/14/2019 Obesity due to excess calories [facility] Z68.37 - Body mass index (BM I) 37.0-37.9, adult Medical Established Patient with Poly Franco [facility] 09/14/2019 L25.5 - Unspecified contact dermatitis due to plants, except food Telemedicine with Poly Franco [facility] 09/11/2019 Obesity due to excess calories [facility]2019 Z68.37 - Body mass index (BM I) 37.0-37.9, adult [facility]2019 Dermatitis due to contact wi th poison spencer Telemedicine with Poly Franco [facility] 09/05/2019 Obesity due to excess calories [facility]05[facility]2019 Z68.37 - Body mass index (BM I) 37.0-37.9, adult Telemedicine with Poly Franco [facility] 09/05/2019 Obesity due to excess calories Medical E stablished Patient with 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 [facility] 08/17/2019 Z68.37 - Body mass index (BM I) 37.0-37.9, adult Medical Established Patient with Miguel Leydi [facility] 08/17/2019 Generalized anxiety disorder BH Establis hed Patient with Anh VIDAL 07/06/2019 Anxiety disorder NOS Medical New Patient with Allyson Floyd FEED PREPARATION OPERATOR 07/06/2019 Depression Medical New Patient with Allyson Floyd FEED PREPARATION OPERATOR 07/06/2019 Diabetes Risk Test Score was one score Medical New Patient with Allyson Floyd FEED PREPARATION OPERATOR 07/06/2019 Idiopathic insomnia Medical New Patient with Allyson Floyd FEED PREPARATION OPERATOR 07/06/2019 Obesity due to excess calories Medical N ew Patient with Allyson Floyd FEED PREPARATION OPERATOR 07/06/2019 Z68.39 - Body mass index (BM I) 39.0-39.9 adult Medical New Patient with Allyson Floyd FEED PREPARATION OPERATOR 07/06/2019 Findings Encounter Date Obesity due to excess calories Medical E stablished Patient with 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 FEED PREPARATION OPERATOR 03/05/2020 Z68.37 - Body mass index [BM I] 37.0-37.9, adult Medical Established Patient with 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 FEED PREPARATION OPERATOR 03/05/2020 Obesity due to excess calories Medical E stablished Patient with Poly Wagonerle FEED PREPARATION OPERATOR 12/05/2019 R21 - Rash and other nonspec ific skin eruption Medical Established Patient with Poly Salvador FEED PREPARATION OPERATOR 12/05/2019 Z68.35 - Body mass index (BM I) 35.0-35.9, adult Medical Established Patient with Polykamryn Wagonerle FEED PREPARATION OPERATOR 12/05/2019 Obesity due to excess calories Medical E stablished Patient with Poly Salvador FEED PREPARATION OPERATOR 11/06/2019 Z68.36 - Body mass index (BM I) 36.0-36.9, adult Medical Established Patient with Poly Salvador FEED PREPARATION OPERATOR 11/06/2019 Obesity due to excess calories Medical E stablished Patient with Poly Salvador FEED PREPARATION OPERATOR 10/12/2019 Z68.38 - Body mass index (BM I) 38.0-38.9, adult Medical Established Patient with Poly Salvador FEED PREPARATION OPERATOR 10/12/2019 L25.5 - Unspecified contact dermatitis due to plants, except food Medical Established Patient with Poly Salvador FEED PREPARATION OPERATOR 09/14/2019 Obesity due to excess calories Medical E stablished Patient with Poly Salvador FEED PREPARATION OPERATOR 09/14/2019 Z68.37 - Body mass index (BM I) 37.0-37.9, adult Medical Established Patient with Poly Salvador FEED PREPARATION OPERATOR 09/14/2019 L25.5 - Unspecified contact dermatitis due to plants, except food Telemedicine with Poly Franco [facility] 09/11/2019 Obesity due to excess calories Telemedicine with Poly Franco [facility] 09/11/2019 Z68.37 - Body mass index (BM I) 37.0-37.9, adult Telemedicine with Poly Franco [facility] 09/11/2019 Dermatitis due to contact wi th poison spencer Telemedicine with Poly Franco [facility] 09/05/2019 Obesity due to excess calories Telemedicine with Poly Franco [facility] 09/05/2019 Z68.37 - Body mass index (BM I) 37.0-37.9, adult Telemedicine with Poly Franco [facility] 09/05/2019 Obesity due to excess calories Medical E stablished Patient with 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 [facility] 08/17/2019 Z68.37 - Body mass index (BM I) 37.0-37.9, adult Medical Established Patient with 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 [facility] 08/17/2019 Generalized anxiety disorder BH Establis hed Patient with Anh VIDAL 07/06/2019 Anxiety disorder NOS Medical New Patient with Allyson Floyd [facility] 07/06/2019 Depression Medical New Patient with Allyson Nye FEED PREPARATION OPERATOR 07/06/2019 Diabetes Risk Test Score was one score Medical New Patient with Allyson Nye [facility] 07/06/2019 Idiopathic insomnia Medical New Patient with Allyosn Floyd FEED PREPARATION OPERATOR 07/06/2019 Obesity due to excess calories Medical N ew Patient with Allyson Nye FEED PREPARATION OPERATOR 07/06/2019 Z68.39 - Body mass index (BM I) 39.0-39.9 adult Medical New Patient with Allyson Floyd [facility] 07/06/2019 Findings Encounter Date Cough Telemedicine Establi sted Patient with 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 [facility] 03/19/2020 Exposure to a viral disease Telemedicine Establisted Patient with 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 [facility] 03/19/2020 Obesity due to excess calories Telemedic ine Establisted Patient with Miguel Leydi [facility] 03/19/2020 Z68.37 - Body mass index [BM I] 37.0-37.9, adult Telemedicine Establisted Patient with 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 [facility] 03/19/2020 Obesity due to excess calories Medical E stablished Patient with 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 [facility] 03/05/2020 Z68.37 - Body mass index [BM I] 37.0-37.9, adult Medical Established Patient with 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 [facility] 03/05/2020 Obesity due to excess calories Medical E stablished Patient with Poly Franco [facility] 12/05/2019 R21 - Rash and other nonspec [facility] skin eruption Medical Established Patient with Polykamryn Wagonerle [facility] 12/05/2019 Z68.35 - Body mass index (BM I) 35.0-35.9, adult Medical Established Patient with Poly Wagonerle [facility] 12/05/2019 Obesity due to excess calories Medical E stablished Patient with Poly Wagonerle [facility] 11/06/2019 Z68.36 - Body mass index (BM I) 36.0-36.9, adult Medical Established Patient with Poly Wagonerle [facility] 11/06/2019 Obesity due to excess calories Medical E stablished Patient with Poly Wagonerle [facility] 10/12/2019 Z68.38 - Body mass index (BM I) 38.0-38.9, adult Medical Establ[facility]12[facility]2019 L25.5 - Unspecified contact dermatitis due to plants, except food Medical Established Patient with Poly Wagonerle [facility] 09/14/2019 Obesity due to excess calories Medical E stablished Patient with Poly Wagonerle [facility] 09/14/2019 Z68.37 - Body mass index (BM I) 37.0-37.9, adult Medical Established Patient with Poly Franco [facility] 09/14/2019 L25.5 - Unspecified contact dermatitis due to plants, except food Telemedicine with Poly [facility] 09/11/2019 Obesity due to excess calories [facility]2019 Z68.37 - Body mass index (BM I) 37.0-37.9, adult [facility]2019 Dermatitis due to contact wi th poison spencer [facility]2019 Obesity due to excess calories Telemedicine with Poly Wagonerle [facility] 09/05/2019 Z68.37 - Body mass index (BM I) 37.0-37.9, adult Telemedicine with Poly Wagonerle [facility] 09/05/2019 Obesity due to excess calories Medical E stablished Patient with 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 [facility] 08/17/2019 Z68.37 - Body mass index (BM I) 37.0-37.9, adult Medical Established Patient with Miguel Franciscoen [facility] 08/17/2019 Generalized anxiety disorder BH Establis hed Patient with Anh VIDAL 07/06/2019 Anxiety disorder NOS Medical New Patient with Allyson Floyd CNP 07/06/2019 Depression Medical New Patient with Allyson Floyd FEED PREPARATION OPERATOR 07/06/2019 Diabetes Risk Test Score was one score Medical New Patient with Allyson Floyd FEED PREPARATION OPERATOR 07/06/2019 Idiopathic insomnia Medical New Patient with Allyson Floyd FEED PREPARATION OPERATOR 07/06/2019 Obesity due to excess calories Medical N ew Patient with Allyson Floyd FEED PREPARATION OPERATOR 07/06/2019 Z68.39 - Body mass index (BM I) 39.0-39.9 adult Medical New Patient with Allyson Floyd FEED PREPARATION OPERATOR 07/06/2019 Diagnosis COVID-19 Fatty liver Other chronic [...] Everywhere. * Coronavirus Disease (COVID-19): General Info (Gambian) documented in this encounter Additional Source Comments INFORMATION SOURCE (unrecogn ized section and content) DATE CREATED AUTHOR 11/24/2017 [facility] DATE CREATED AUTHOR AUTHOR'S ORGANIZ ATION 08/26/2018 [facility] DATE CREATED AUTHOR AUTHOR'S ORGANIZ ATION 09/24/2020 [facility] DATE CREATED AUTHOR AUTHOR'S ORGANIZ ATION 05/14/2023 [facility] DATE CREATED AUTHOR AUTHOR'S ORGANIZ ATION 12/06/2023 [facility]ists EPIC Evaluations & Outcomes [...] US TRANSVAGINAL, NON OB Dana Akins MD [address] [place] [address] [facility] Ultrasound [address] [place] [address] Reason Comments Emesis multiple episodes si nce [...] Care Teams (unrecognized sec tion and content) Melt Room Operator Relationship Specialty Start Date End Date 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 APRN - CNP PCP - General Family Medicine 04/08/20 Melt Room Operator Relationship Specialty Start Date End Date 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 APRN - CNP PCP - General Family Medicine 04/08/20 Melt Room Operator Relationship Specialty Start Date End Date 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, IOANA - FEED PREPARATION OPERATOR PCP - General Family Medicine 04/08/20 FOR [...] BE BASED ON THE PRIMARY CLINICAL RECORDS. [employer] provides no warranty or guarantee of the accuracy or completeness of information in this document.
== END 2023-12-15 20:16 | disposition home or self-care (01) ==
LOC: LAB 20:15
PROVIDERS: Visit Provider Obstetrics & Gynecology
DX: O36.63X0 Maternal care for excessive fetal growth, third trimester, not applicable or unspecified (principal); Z3A.36 36 weeks gestation of pregnancy
CPT/HCPCS: 36415; 76816; 87081; 87150

== ENCOUNTER 2023-12-23 07:04 | Outpatient (OUT) | payer MEDICAID, SELFPAY ==
--- OUTSIDE RECORDS SUMMARY | 2023-12-23 07:08 | XMS_ITS | CCD ---
Author Organization [facility] Care Team Providers Care Library Paraprofessional Name Role Phone NO FAMILY PHYSICIAN, 837 Unavailable Unavail able FELIX GALVAN Unavailable Unavailable Leydi, Miguel Primary Care Provider Jackson Haas Primary Care Provider [phone] 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 Primary Care Provider [phone] Leydi Miguel M Primary Care Provider 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 CNP Primary Care Provider Leydi 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 - YARDAGE TUFTING MACHINE OPERATOR, Miguel M Primary Care Provider LEYDI MIGUEL M Referring Unavailable LEYDI, MIGUEL M Primary Care Unavailable Leydi 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 - DIANELYS, Miguel M Primary Care Provider Leydi 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 - YARDAGE TUFTING MACHINE OPERATOR, Miguel M Primary Care Provider Shona Lucio Primary Care Physician Yeison Sharpe 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 - YARDAGE TUFTING MACHINE OPERATOR, Miguel M Primary Care Provider Leydi 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 - YARDAGE TUFTING MACHINE OPERATOR, Miguel M Primary Care Provider LEYDI, [...] Unavailable Unavailable Primary Care Provider Unavailabl e BILLY ADITYA Attending Unavailable BILLY, ADITYA Attending Unavailable BIANKA, LATASHA Attending Unavailable BILLY, ADITYA Attending Unavailable BILLY, ADITYA Attending Unavailable BIANKA, LATASHA Attending Unavailable BILLY, ADITYA Attending Unavailable BILLY, ADITYA Attending Unavailable BILLY, ADITYA Attending Unavailable BILLY, ADITYA Attending Unavailable Allergies Allergy Classification Reported Allergen(s) Allergy Type Date of Onset Reaction(s) Facility Aminoketones (4 sources) buPROPion; Translations: [Wellbutrin SR 100 MG Oral Tablet Extended Release 12 Hour] Drug Allergy 03-05-20 20 Wellbutrin SR [facility] Work Phone: Corticosteroids (6 sources) Triamcinolone Drug Allergy 10-14-19 14 Other (See Comments) [facility] Lisdexamfetamine (1 source) Lisdexamfetamine Drug Allergy 10-04-19 21 Vyvanse [facility] Work Phone: Naltrexone (4 sources) Naltrexone; Translations: [Naltrexone HCl 50 MG Oral Tablet] Drug Allergy 03-05-20 20 Naltrexone HCl [facility] Work Phone: (1 source) Triamcinolone; Translations: [TRIAMCINOLONE ACETONIDE] Drug Allergy 10-12-19 15 [facility] Repository (16 sources) Triamcinolone; Translations: [Kenalog] Drug Allergy 07-06-19 20 [facility] Work Phone: (8 sources) Triamcinolone Drug Allergy 10-14-19 14 Other (See Comments), Other, Hives [facility] (17 sources) Poison spencer Allergy to substance 07-20-19 20 [facility] Work Phone: (3 sources) buPROPion; Translations: [Wellbutrin SR 100 MG Oral Tablet Extended Release 12 Hour] Drug Allergy 03-05-20 20 Wellbutrin SR [facility] Work Phone: (3 sources) Naltrexone; Translations: [Naltrexone HCl 50 MG Oral Tablet] Drug Allergy 03-05-20 20 Naltrexone HCl [facility] Work Phone: Medications Current Medications Medication [...] daily. 118 mL 1 12/17/2016 Active levonorgestrel 0.579381 mg/hr intrauterine system (17 sources) Progestin, Progestin-contai [...] Start: 09-10-2021 take 1 capsule by mo [facility] once daily in the morning VYVANSE 50 [...] Negative Negative - 4(70) +++ mg/dL [facility] Blood, UA Negative Negative - 50 Chuy/mcL [facility] Clarity, UA Clear [facility] Color, UA Yellow [facility] Glucose, UA Negative Negative - 1999(110) ++++ mg/dL [facility] Interpretation and review of laboratory results Normal [facility] Ketones, UA Positive Negative - 160(16) ++++ mg/dL [facility] Leukocytes, UA Negative Negative - 500+++ Sadi/mcL [facility] Nitrite, UA Negative Negative - Positive [facility] pH, UA 6.5 5 - 9 [facility] Protein, UA Negative Negative - 1999(20) ++++ mg/dL [facility] Spec Grav, UA 1.025 1 - 1.03 [facility] Urobilinogen, UA 0.2 0.2 - 12 mg/dL [facility] HCG, Quanton 05-12-2023 HCG, Quant 9701.0 mIU/mL High <5 [facility] Comment on above: Result Comment: Non-preg premeno <=5 Postmeno <=8 Male <=3 If HCG results do not concur with clinical observations, additional testing to confirm results is recommended. Performed By: #### B HCG #### [facility] [address] [place] [address] [place] [address] Gas Specialist: Mateusz Brand MD HCG, Quanton 05-07-2023 HCG, Quant 3514.0 mIU/mL High <5 [facility] Comment on above: Result Comment: Non-preg premeno <=5 Postmeno <=8 Male <=3 If HCG results do not concur with clinical observations, additional testing to confirm results is recommended. Performed By: #### B HCG #### [facility] [address] [place] [address] Gas Specialist: Mateusz Brand MD HCG, Quanton 05-05-2023 HCG, Quant 2224.0 mIU/mL High <5 [facility] Comment on above: Result Comment: Non-preg premeno <=5 Postmeno <=8 Male <=3 If HCG results do not concur with clinical observations, additional testing to confirm results is recommended. Performed By: #### B HCG #### [facility] [address] [place] [address] Gas Specialist: Mateusz Brand MD US PELVIS COMPLETE NON-OB [...] Yousif Lamb MD 03/25/23 Final result Normal [facility] CBC with Diffon 03-24-2023 Abs. Basophil 0.06 k/uL Normal 0.00-0.20 [facility] Comment on above: Performed By: #### C DP, CG #### [address] [place], [place] [id number] Gas Specialist: Mateusz Brand MD Abs.Imm.Granulocyte 0.03 k/uL Normal 0.00-0.30 [facility] Comment on above: Performed By: #### C TJ BHCG #### [address] [place], [place] [address] Gas Specialist: Mateusz Brand MD Abs.Neutrophil (Seg) 7.07 k/uL Normal 1.50-8.10 [facility] Comment on above: Performed By: #### C TJ CG #### [address] [place] [address] Gas Specialist: Mateusz Brand MD Basophils/100 WBC (Bld) 1 % Normal 0-2 [facility] Comment on above: Performed By: #### [facility] #### [address] [place], [place] [address] Gas Specialist: Mateusz Brand MD Eosinophils (Bld) [#/Vol] 0.13 10*3/uL Normal 0.00-0.44 [facility] Comment on above: Performed By: #### C TJ BHCG #### [address] [place], [place] [address] Gas Specialist: Mateusz Brand MD Eosinophils/100 WBC (Bld) 1 % Normal 1-4 [facility] Comment on above: Performed By: #### C TJ CG #### [address] [place] [address] Gas Specialist: Mateusz Brand MD Erythrocyte distribution width (RBC) [Ratio] 11.9 % Normal 11.8-14.4 [facility] Comment on above: Performed By: #### C TJ BHCG #### [address] [place], [place] [id number] Gas Specialist: Mateusz Brand MD Hematocrit (Bld) [Volume fraction] 37.8 % Normal 36.3-47.1 [facility] Comment on above: Performed By: #### C DP, BHCG #### [address] [place], [place] [id number] Gas Specialist: Mateusz Brand MD Hemoglobin (Bld) [Mass/Vol] 13.3 g/dL Normal 11.9-15.1 [facility] Comment on above: Performed By: #### C TJ CG #### [address] [place] [id number] Gas Specialist: Mateusz Brand MD Immature granulocytes/100 WBC (Bld) 0 % Normal 0 [facility] Comment on above: Performed By: #### C TJ CG #### [address] [place], [facility]83 Gas Specialist: Mateusz Brand MD Lymphocytes (Bld) [#/Vol] 3.03 10*3/uL Normal 1.10-3.70 [facility] Comment on above: Performed By: #### C TJ, BHCG #### [address] [place] [id number] Gas Specialist: Mateusz Brand MD Lymphocytes/100 WBC (Bld) 28 % Normal 24-43 [facility] Comment on above: Performed By: #### C TJ, BHCG #### [address] [place], [place] [id number] Gas Specialist: Mateusz Brand MD MCH (RBC) [Entitic mass] 28.6 pg Normal 25.2-33.5 [facility] Comment on above: Performed By: #### C TJ, BHCG #### [address] [place] [id number] Gas Specialist: Mateusz Brand MD MCHC (RBC) [Mass/Vol] 35.2 g/dL High 28.4-34.8 [facility] Comment on above: Performed By: #### C TJ [facility] #### [address] [place] [address] Gas Specialist: Mateusz Brand MD MCV (RBC) [Entitic vol] 81.3 fL Low 82.6-102.9 [facility] Comment on above: Performed By: #### C [facility] #### [address] [place], [facility]83 Gas Specialist: Mateusz Brand MD Monocytes (Bld) [#/Vol] 0.60 10*3/uL Normal 0.10-1.20 [facility] Comment on above: Performed By: #### C [facility] #### [address] [place], [place] [address] Gas Specialist: Mateusz Brand MD Monocytes/100 WBC (Bld) 6 % Normal 3-12 [facility] Comment on above: Performed By: #### C TJ [facility] #### [address] [place], [facility]83 Gas Specialist: Mateusz Brand MD Neutrophil (Seg) 64 % Normal 36-65 [facility] Comment on above: Performed By: #### C TJ [facility] #### [address] [place], [facility]83 Gas Specialist: Mateusz Brand MD NRBC Automated 0.0 per 100 WBC Normal 0.0 [facility] Comment on above: Performed By: #### C [facility]J [facility] #### [address] [place], [place] [id number] Gas Specialist: Mateusz Brand MD Platelet mean volume (Bld) [Entitic vol] 10.6 fL Normal 8.1-13.5 [facility] Comment on above: Performed By: #### C TJ, CG #### [facility] [address] [place], [place] [id number] Gas Specialist: Mateusz Brand MD Platelets (Bld) [#/Vol] 231 10*3/uL Normal 138-453 [facility] Comment on above: Performed By: #### C TJ, BHCG #### [facility] [address] [place], [place] [id number] Gas Specialist: Mateusz Brand MD RBC (Bld) [#/Vol] 4.65 10*6/uL Normal 3.95-5.11 [facility] Comment on above: Performed By: #### C TJ BHCG #### [facility] [address] [place], [place] [phone] Gas Specialist: Mateusz Brand MD WBC (Bld) [#/Vol] 10.9 10*3/uL Normal 3.5-11.3 [facility] Comment on above: Performed By: #### C TJ CG #### [facility] [address] [place], [place] [id number] Gas Specialist: Mateusz Brand MD HCG, Quanton 03-24-2023 HCG, Quant <1.0 Normal <5 [facility] Comment on above: Result Comment: Non-preg premeno <=5 Postmeno <=8 Male <=3 If HCG results do not concur with clinical observations, additional testing to confirm results is recommended. Performed By: #### C TJ BHCG #### [facility] [address] [place] [address] Gas Specialist: Mateusz Brand MD HCG, ,Urineon 01-20 Beta HCG ( test) Ql (U) Negative Normal NEG [facility] Comment on above: Result Comment: Spec imens with hCG levels near the threshold of the test (25 mIU/mL) may give a negative or indeterminate result. In such cases, another test should be performed with a new specimen in 48-72 hours. If early is suspected clinically in this setting, correlation with quantitative serum b-hCG level is suggested. [facility] [employer] has confirmed the use of plasma for this test. This has not been cleared or approved by the U.S. Food and Drug Administration. The FDA has determined that such clearance is not necessary. Performed By: #### U HCG #### [address] [place] [address] Gas Specialist: Mateusz Brand MD OPERATIVE REPORTon OPERATIVE REPORT [address] [address] OPERATIVE REPORT PATIENT NAME: ESTEFANIA FLOREZ : 1995 MED REC NO: [id number] ROOM: ACCOUNT NO: [id number] ADMIT DATE: 01/20/2023 PROVIDER: Vickie Nichols MD [...] cervix in a graduated fashion to #14 Turkmen with Adeel dilators. Then, the hysteroscope was [...] taken in good condition. VICKIE NICHOLS MD BIBIANA/[id number] Doc#: [id number] CC: Normal [facility] Cytologyon 01-01-2023 Cytology (NOTE) Path Number: [id number] DIAGNOSIS Imaged ThinPrep Pap - Cervical (1 [...] Abnormal Clinical History Intrauterine device Z01.419 Routine occupational therapy specialist exam without abnormal findings High risk HPV DNA testing is requested if the diagnosis is abnormal Processing Lab: [place] [id number] Interpretation performed at [address] [address] This Pap Test has been evaluated with [...] GYNECOLOGIC CYTOLOGY REPORT Patient Name: [facility]FRED[facility] Rec: [id number] [facility] [employer] [facility] ANATOMIC PATHOLOGY [address] [place] [address]. [place], [place] [address] Normal [facility] C-Reactive Proteinon 022 CRP [Mass/Vol] mg/L 0 - 5 mg/L [facility] CBC with Auto Differentialon 12-16-2021 Absolute Eos # 0.09 [facility] [email or web address]. Absolute Immature Granulocyte 0.04 [facility] [email or web address]. Absolute Lymph # 2.98 [facility] [email or web address]. Absolute Waldo # 0.51 [facility] [email or web address]. Basophils (Bld) [#/Vol] 0.04 10*3/uL [facility] Basophils/100 WBC (Bld) 0 % 0 - 2 % [facility] Eosinophils/100 WBC (Bld) 1 % 1 - 4 % [facility] Hematocrit (Bld) [Volume fraction] 39.6 % 36.3 - 47.1 % [facility] Hemoglobin (Bld) [Mass/Vol] 13.1 g/dL 11.9 - 15.1 g/dL [facility] Immature granulocytes/100 WBC (Bld) 0 % 0 [facility] Lymphocytes/100 WBC (Bld) 33 % 24 - 43 % [facility] MCH (RBC) [Entitic mass] 28.2 pg 25.2 - 33.5 pg [facility] MCHC (RBC) [Mass/Vol] 33.1 g/dL 28.4 - 34.8 g/dL [facility] MCV (RBC) [Entitic vol] 85.3 fL 82.6 - 102.9 fL [facility] Monocytes/100 WBC (Bld) 6 % 3 - 12 % [facility] NRBC Automated 0.0 0.0 per 100 WBC [facility] Platelet distribution width (Bld) [Ratio] 12.0 % 11.8 - 14.4 % [facility] Platelet mean volume (Bld) [Entitic vol] 11.1 fL 8.1 - 13.5 fL [facility] Platelets (Bld) [#/Vol] 214 10*3/uL [facility] RBC (Bld) [#/Vol] 4.64 10*6/uL 3.95 - 5.1 1 m/uL [facility] Segmented neutrophils/100 WBC (Bld) 60 % 36 - 65 % [facility] Segs Absolute 5.49 [facility] WBC (Bld) [#/Vol] 9.2 10*3/uL [facility] Rheumatoid Factoron 12-17-19 22 Rheumatoid Factor <10 NINF [facility] Sedimentation Rateon 022 Sed Rate [address] [facility] [employer] Uric Acidon 12-16-2021 Urate [Mass/Vol] 4.2 mg/dL 2.4 - 5.7 mg/dL [facility] [employer] Basic Metabolic Panel w/ Ref yossi to MGOrdered By: Donny Hatfield on 10-15-2020 Anion gap [Moles/Vol] 13 mmol/L 9 - 17 mmol/L [employer] Phone: Calcium [Mass/Vol] 9.6 mg/dL 8.6 - 10. 4 mg/dL [employer] Phone: Chloride [Moles/Vol] 105 mmol/L 98 - 10 7 mmol/L [employer] Phone: CO2 [Moles/Vol] 22 mmol/L 20 - 31 mmol/L [employer] Phone: Creatinine [Mass/Vol] 0.62 mg/dL 0.50 - 0.90 mg/dL [employer] Phone: GFR >60 >60 mL/min [email or web address]. Phone: GFR Non- >60 >60 mL/min [employer] Phone: Glucose [Mass/Vol] 110 mg/dL High 70 - 99 mg/dL [employer] Phone: Interpretation and review of laboratory results Abnormal [employer] Phone: Potassium [Moles/Vol] 3.5 mmol/L Low 3.7 - 5.3 mmol/L [employer] Phone: Sodium [Moles/Vol] 140 mmol/L 135 - 144 mmol/L [employer] Phone: Urea nitrogen (BldV) [Mass/Vol] 12 mg/dL 6 - 20 mg/dL [employer] Phone: Urea nitrogen/Creatinine (Bld) [Mass ratio] 19 [employer] Phone: [employer] Work Phone: CBC Auto DifferentialOrdered By: Donny Hatfield on 10-15-2020 Absolute Eos # 0.19 [employer] [facility] Work Phone: Absolute Immature Granulocyte 0.06 [employer] Work Phone: Absolute Lymph # 2.50 [employer] Work Phone: Absolute Waldo # 0.75 [facility] [facility] Work Phone: Basophils (Bld) [#/Vol] 0.04 10*3/uL [employer] Work Phone: Basophils/100 WBC (Bld) 0 % 0 - 2 % [employer] Phone: Differential Type NOT REPORTED [employer] Phone: Eosinophils/100 WBC (Bld) 1 % 1 - 4 % [employer] Phone: Hematocrit (Bld) [Volume fraction] 42.1 % 36.3 - 47.1 % [employer] Phone: Hemoglobin.gastrointes tinal spec 1 Ql (Stl) 14.0 g/dL 11.9 - 15.1 g/dL [employer] Phone: Immature granulocytes/100 WBC (Bld) 0 % 0 [employer] Phone: Interpretation and review of laboratory results Abnormal [employer] Phone: Lymphocytes/100 WBC (Bld) 14 % Low 24 - 43 % [employer] Phone: MCH (RBC) [Entitic mass] 28.1 pg 25.2 - 33.5 pg [employer] Phone: MCHC (RBC) [Mass/Vol] 33.3 g/dL 28.4 - 34.8 g/dL [employer] Phone: MCV (RBC) [Entitic vol] 84.4 fL 82.6 - 102.9 fL [employer] Phone: Monocytes/100 WBC (Bld) 4 % 3 - 12 % [employer] Phone: NRBC Automated 0.0 0.0 per 100 WBC [employer] Phone: Platelet distribution width (Bld) [Ratio] 11.9 % 11.8 - 14.4 % [employer] Phone: Platelet Estimate NOT REPORTED [employer] Phone: Platelet mean volume (Bld) [Entitic vol] 10.7 fL 8.1 - 13.5 fL [employer] Phone: Platelets (Bld) [#/Vol] 220 10*3/uL [employer] Phone: RBC (Bld) [#/Vol] 4.99 10*6/uL 3.95 - 5.1 1 m/uL [employer] Phone: RBC (Bld) [#/Vol] NOT REPORTED [employer] Phone: Segmented neutrophils/100 WBC (Bld) 81 % High 36 - 65 % [employer] Phone: Segs Absolute 14.20 High [facility] Work Phone: WBC (Bld) [#/Vol] 17.7 10*3/uL High [employer] Work Phone: WBC (Bld) [#/Vol] NOT REPORTED [employer] Phone: [employer] Phone: CT ABDOMEN PELVIS W IV CONTR AST Additional Contrast? NoneOrdered By: Donny Hatfield on 10-15-2020 1. Marked hepatic steatosis. 2. Hepatomegaly. 3. Mild colonic diverticulosis without evidence of diverticulitis. [employer] Phone: EXAMINATION: CT OF T HE ABDOMEN [...] PROVIDED HISTORY: abd pain TECHNOLOGIST PROVIDED HISTORY: [facility] pain Decision Support Exception - [...] subcutaneous soft tissues are unremarkable in appearance. [employer] Work Phone: Jean Marie, [facility] Incoming Radiant Results From [email or web address] - 10/15/2020 1:48 AM EDT EXAMINATION: CT [...] PROVIDED HISTORY: abd pain TECHNOLOGIST PROVIDED HISTORY: [facility] pain Decision Support Exception - [...] Mild colonic diverticulosis without evidence of diverticulitis. [employer] Phone: [employer] Phone: HCG Qualitative, SerumOrdere d By: Donny Hatfield on 10-15-2020 hCG Qual Negative NEGATIVE [employer] Phone: Comment on above: Specimens with hCG l evels near the threshold of the test (25 mIU/mL) may give a negative or indeterminate result. In such cases, another test should be performed with a new specimen in 48-72 hours. If early is suspected clinically in this setting, correlation with quantitative serum b-hCG level is suggested. [facility] [employer] has confirmed the use of plasma for this test. This has not been cleared or approved by the U.S. Food and Drug Administration. The FDA has determined that such clearance is not necessary. [employer] Phone: Hepatic Function PanelOrdere d By: Donny Hatfield on 10-15-2020 Albumin [Mass/Vol] 4.6 g/dL 3.5 - 5.2 g/dL [employer] Phone: Albumin/Globulin [Mass ratio] 1.6 {ratio} [employer] Phone: ALP (Bld) [Catalytic activity/Vol] 59 U/L 35 - 104 U/L [employer] Phone: ALT [Catalytic activity/Vol] 38 U/L High 5 - 33 U/L [employer] Phone: AST [Catalytic activity/Vol] 24 U/L <32 [employer] Phone: Bilirubin [Mass/Vol] 0.48 mg/dL 0.3 - 1 .2 mg/dL [employer] Phone: Bilirubin, Indirect CANNOT BE CALCULATED 0.00 - 1.00 mg/dL [employer] Phone: Bilirubin.indirect [Mass/Vol] mg/dL <0.31 mg/dL [employer] Phone: Free PSA/Total PSA [Mass fraction] 7.4 g/dL 6.4 - 8.3 g/dL [employer] Phone: Globulin NOT REPORTED 1.5 - 3.8 g/dL [employer] Phone: Interpretation and review of laboratory results Abnormal [employer] Phone: Laboratory - Chemistry and C hemistry - challengeOrdered By: Donny Hatfield on 10-15-2020 GFR/1.73 sq M.predicted MDRD (S/P/Bld) [Vol rate/Area] [employer] Phone: Comment on above: Average GFR for 20-2 9 years old: 116 mL/min/1.73sq m Chronic Kidney Disease: <60 mL/min/1.73sq m Kidney failure: <15 mL/min/1.73sq m eGFR calculated using average adult body mass. Additional eGFR calculator available at: [email or web address]_crcl_[email or web address].htm Stage 1: Some kidney damage normal GFR Stage 2: Mild kidney damage GFR 60-89 Stage 3: Moderate kidney damage GFR 30-59 Stage 4: Severe kidney damage GFR 15-29 Stage 5: Severe kidney damage GFR <15 ESRD - chronic treatment by dialysis or transplant Lactic Acid, PlasmaOrdered B y: Donny Hatfield on 10-15-2020 Lactate [Moles/Vol] 1.1 mmol/L 0.5 - 2. 2 mmol/L [employer] Work Phone: Lactic Acid, Whole Blood NOT REPORTED 0.7 - 2.1 mmol/L [employer] Phone: [employer] Phone: LipaseOrdered By: Cuco on 10-15-2020 Lipase [Catalytic activity/Vol] 27 U/L 13 - 60 U/L [employer] Phone: MagnesiumOrdered By: Donny Hatfield on 10-15-2020 Magnesium [Mass/Vol] 1.8 mg/dL 1.6 - 2 .6 mg/dL [employer] Phone: [employer] Phone: Microscopic UrinalysisOrdere d By: Donny Hatfield on 10-15-2020 - [employer] Work Phone: Amorphous, UA NOT REPORTED None [facility] [facility] Work Phone: Bacteria, UA 1+ Abnormal None [employer] Work Phone: Casts UA NOT REPORTED /LPF [facility] Work Phone: Crystals, UA NOT REPORTED None /HPF [employer] [facility] Work Phone: Epithelial Cells UA 2 TO 5 [employer] Work Phone: Interpretation and review of laboratory results Abnormal [employer] Work Phone: Mucus, UA 1+ Abnormal None [facility] Work Phone: Other Observations UA NOT REPORTED NOT REQ. [facility] Work Phone: RBC, UA 2 TO [address] [facility] Work Phone: Renal Epithelial, UA NOT REPORTED 0 /HPF [facility] Work Phone: Trichomonas, UA NOT REPORTED None [facility] Work Phone: WBC, UA 0 TO 2 [facility] Work Phone: Yeast, UA NOT REPORTED None [facility] Work Phone: [facility] Work Phone: No Panel InformationOrdered By: Donny Hatfield on 10-15-[address] [facility] Work Phone: Urinalysis Reflex to Culture Ordered By: Donny Hatfield on 10-15-2020 Bilirubin Urine Negative NEGATIVE [facility] Work Phone: Color, UA YELLOW YELLOW [facility] Work Phone: Glucose, Ur Negative NEGATIVE [facility] Work Phone: Interpretation and review of laboratory results Abnormal [facility] Work Phone: Ketones Ql (U) Negative NEGATIVE [facility] Work Phone: Leukocyte esterase Test strip Ql (U) Negative NEGATIVE [facility] Work Phone: Nitrite, Urine Negative NEGATIVE [facility] Work Phone: pH, UA 5.[address] [facility] Work Phone: Protein, UA Negative NEGATIVE [facility] Work Phone: Specific Frost, UA 1.010 [facility] Work Phone: Turbidity UA CLEAR CLEAR [facility] Work Phone: Urinalysis Comments NOT REPORTED [facility] Work Phone: Urine Hgb 2+ Abnormal NEGATIVE [facility] Phone: Urobilinogen, Urine Normal Normal [facility] [employer] Phone: [employer] Work Phone: Comp Metabolic Profon 2020 (cont.) Normal [facility] Comment on above: Result Comment: Aver age GFR for 20-29 years old: 116 mL/min/1.73sq m Chronic Kidney Disease: <60 mL/min/1.73sq m Kidney failure: <15 mL/min/1.73sq m eGFR calculated using average adult body mass. Additional eGFR calculator available at: http://www.[employer]/multiple_crcl_2011.htm Performed By: #### L IPRF, CDP, CP, TSHX #### [facility] [address] [place] [address] Gas Specialist: Chato Aguirre MD Albumin [Mass/Vol] 4.3 g/dL Normal 3.5-5.2 [facility] Comment on above: Performed By: #### L IPRF, CDP, CP, TSHX #### [facility] [address] [place] [address] 39596 Gas Specialist: Chato Aguirre MD Albumin/Glob Ratio 1.3 Normal 1.0-2.5 [facility] Comment on above: Performed By: #### L IPRF, CDP, CP, TSHX #### [facility] [address] [place] [address] 11518 Gas Specialist: Chato Aguirre MD Alkaline Phos 49 U/L Normal 35-104 [facility] Comment on above: Performed By: #### L IPRF, CDP, CP, TSHX #### [facility] [address] [place] [address] 95776 Gas Specialist: Chato Aguirre MD ALT [Catalytic activity/Vol] 36 U/L High 5-33 [facility] Comment on above: Performed By: #### L IPRF, CDP, CP, TSHX #### [facility] [address] [place] [address] 13810 Gas Specialist: Chato Aguirre MD Anion gap [Moles/Vol] 11 mmol/L Normal 9-17 [facility] Comment on above: Performed By: #### L IPRF, CDP, CP, TSHX #### [facility] [address] [place] [address] 54774 Gas Specialist: Chato Aguirre MD AST [Catalytic activity/Vol] 27 U/L Normal <32 [facility] Comment on above: Performed By: #### L IPRF, CDP, CP, TSHX #### [facility] [address] [place] [address] 7[address]59 Gas Specialist: Chato Aguirre MD Bilirubin [Mass/Vol] 0.34 mg/dL Normal 0.3-1.[address] [facility] Comment on above: Performed By: #### L IPRF, CDP, CP, TSHX #### [facility] [address] [place] [address] 99472 Gas Specialist: Chato Aguirre MD Calcium [Mass/Vol] 9.5 mg/dL Normal 8.6-10.4 [facility] Comment on above: Performed By: #### L IPRF, CDP, CP, TSHX #### [facility] [address] [place] [address] 70701 Gas Specialist: Chato Aguirre MD Chloride [Moles/Vol] 102 mmol/L Normal 98-[address] [facility] Comment on above: Performed By: #### L IPRF, CDP, CP, TSHX #### [facility] [address] [place] [address] 29262 Gas Specialist: Chato Aguirre MD CO2 [Moles/Vol] 22 mmol/L Normal 20-31 [facility] Comment on above: Performed By: #### L IPRF, CDP, CP, TSHX #### [facility] [address] [place] [address] 35847 Gas Specialist: Chato Aguirre MD Creatinine [Mass/Vol] 0.46 mg/dL Low 0.50-0.90 [facility] Comment on above: Performed By: #### L IPRF, CDP, CP, TSHX #### [facility] [address] [place] [address] 66131 Gas Specialist: Chato Aguirre MD GFR, Amer >60 Normal >60 [facility] Comment on above: Performed By: #### L IPRF, CDP, CP, TSHX #### [facility] [address] [place] [address] 84387 Gas Specialist: Chato Aguirre MD GFR,non Amer >60 Normal >[address] [facility] Comment on above: Performed By: #### L IPRF, CDP, CP, TSHX #### [facility] [address] [place] [address] 51047 Gas Specialist: Chato Aguirre MD Glucose [Mass/Vol] 92 mg/dL Normal 70-99 [facility] Comment on above: Performed By: #### L IPRF, CDP, CP, TSHX #### [facility] [address] [place] [address] 65872 Gas Specialist: Chato Aguirre MD Potassium [Moles/Vol] 4.2 mmol/L Normal 3.7-5.3 [facility] Comment on above: Performed By: #### L IPRF, CDP, CP, TSHX #### [facility] [address] [place] [address] 95238 Gas Specialist: Chato Aguirre MD Protein [Mass/Vol] 7.5 g/dL Normal 6.4-8.3 [facility] Comment on above: Performed By: #### L IPRF, CDP, CP, TSHX #### [facility] [address] [place] [address] 55411 Gas Specialist: Chato Aguirre MD Sodium [Moles/Vol] 135 mmol/L Normal 135-144 [facility] Comment on above: Performed By: #### L IPRF, CDP, CP, TSHX #### [facility] [address] [place] [address] 61616 Gas Specialist: Chato Aguirre MD Urea nitrogen [Mass/Vol] 11 mg/dL Normal 6-20 [facility] Comment on above: Performed By: #### L IPRF, CDP, CP, TSHX #### [facility] [address] [place] [address] 67186 Gas Specialist: Chato Aguirre MD Lipid Prof, Fastingon 2020 Cholesterol [Mass/Vol] 186 mg/dL Normal <200 [facility] Comment on above: Result Comment: Cholesterol Guidelines: <200 Desirable 200-240 Borderline >240 Undesirable Performed By: #### L IPRF, CDP, CP, TSHX #### [facility] [address] [place] [address] 17787 Gas Specialist: Chato Aguirre MD Cholesterol in HDL [Mass/Vol] 49 mg/dL Normal >40 [facility] Comment on above: Result Comment: HDL Guidelines: <40 Undesirable 40-59 Borderline >59 Desirable Performed By: #### L IPRF, CDP, CP, TSHX #### [facility] [address] [place] [address] 06391 Gas Specialist: Chato Aguirre MD Cholesterol in LDL [Mass/Vol] 102 mg/dL Normal 0-130 [facility] Comment on above: Result Comment: LDL Guidelines: <100 Desirable 100-129 Near to/above Desirable 130-159 Borderline >159 Undesirable Direct (measured) LDL and calculated LDL are not interchangeable tests. Performed By: #### L IPRF, CDP, CP, TSHX #### [facility] [address] [place] [address] 43608 Gas Specialist: Chato Aguirer MD Cholesterol.total/Chol esterol in HDL [Mass ratio] 3.8 {ratio} Normal <5 [facility] Comment on above: Performed By: #### L IPRF, CDP, CP, TSHX #### [facility] [address] [place] [address] [phone] Gas Specialist: Chato Aguirre MD Triglyceride,Fasting 173 mg/dL High <[address] [facility] Comment on above: Result Comment: Triglyceride Guidelines: <150 Desirable 150-199 Borderline 200-499 High >499 Very high Based on AHA Guidelines for fasting triglyceride, February 2012. Performed By: #### L IPRF, CDP, CP, TSHX #### [facility] [place], [place] [phone] Gas Specialist: Chato Aguirre MD TSH w/reflex to FT4on 2020 TSH Qn 3.38 m[IU]/L Normal 0.30-5.00 [facility] Comment on above: Performed By: #### L IPRF, CDP, CP, TSHX #### [facility] [address] [place] [address] [phone] Gas Specialist: Chato Aguirre MD CBC Auto DifferentialOrdered By: 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 on 09-23-2020 [employer] # 0.14 [employer] [facility] Work Phone: Absolute Immature Granulocyte <0.03 [employer] Work Phone: [employer] Lymph # 2.71 [employer] [facility] Work Phone: Absolute Waldo # 0.48 [facility] Work Phone: Basophils (Bld) [#/Vol] 0.05 10*3/uL [employer] Work Phone: Basophils/100 WBC (Bld) 1 % 0 - 2 % [employer] Work Phone: Differential Type NOT REPORTED [employer] Work Phone: Eosinophils/100 WBC (Bld) 2 % 1 - 4 % [employer] Phone: Hematocrit (Bld) [Volume fraction] 42.9 % 36.3 - 47.1 % [employer] Phone: Hemoglobin.gastrointes tinal spec 1 Ql (Stl) 13.5 g/dL 11.9 - 15.1 g/dL [employer] Phone: Immature granulocytes/100 WBC (Bld) 0 % 0 [employer] Phone: Lymphocytes/100 WBC (Bld) 30 % 24 - 43 % [employer] Phone: MCH (RBC) [Entitic mass] 27.6 pg 25.2 - 33.5 pg [employer] Phone: MCHC (RBC) [Mass/Vol] 31.5 g/dL 28.4 - 34.8 g/dL [employer] Phone: MCV (RBC) [Entitic vol] 87.6 fL 82.6 - 102.9 fL [employer] Phone: Monocytes/100 WBC (Bld) 5 % 3 - 12 % [employer] Phone: NRBC Automated 0.0 0.0 per 100 WBC [employer] Phone: Platelet distribution width (Bld) [Ratio] 12.4 % 11.8 - 14.4 % [employer] Phone: Platelet Estimate NOT REPORTED [employer] Phone: Platelet mean volume (Bld) [Entitic vol] 11.6 fL 8.1 - 13.5 fL [employer] Phone: Platelets (Bld) [#/Vol] 246 10*3/uL [employer] Phone: RBC (Bld) [#/Vol] 4.90 10*6/uL 3.95 - 5.1 1 m/uL [employer] Work Phone: RBC (Bld) [#/Vol] NOT REPORTED [employer] Phone: Segmented neutrophils/100 WBC (Bld) 62 % 36 - 65 % [employer] Work Phone: Segs Absolute 5.79 [employer] Work Phone: WBC (Bld) [#/Vol] 9.2 10*3/uL [employer] Work Phone: WBC (Bld) [#/Vol] NOT REPORTED [employer] Phone: CBC with Diffon 09-23-2020 Abs. Basophil 0.05 k/uL Normal 0.00-0.20 [facility] Comment on above: Performed By: #### L IPRF, CDP, CP, TSHX #### [facility] [address] [place] [address] Gas Specialist: Chato Aguirre MD Abs.Imm.Granulocyte <0.03 Normal 0.00-0.30 [facility] Comment on above: Performed By: #### L IPRF, CDP, CP, TSHX #### [facility] [address] [place] [address] Gas Specialist: Chato Aguirre MD Abs.Neutrophil (Seg) 5.79 k/uL Normal 1.50-8.[address] [facility] Comment on above: Performed By: #### L IPRF, CDP, CP, TSHX #### [facility] [address] [place] [address] [phone] Gas Specialist: Chato Aguirre MD Basophils/100 WBC (Bld) 1 % Normal 0-2 [facility] Comment on above: Performed By: #### L IPRF, CDP, CP, TSHX #### [facility] [address] [place] [address] Gas Specialist: Chato Aguirre MD Eosinophils (Bld) [#/Vol] 0.14 10*3/uL Normal 0.00-0.44 [facility] Comment on above: Performed By: #### L IPRF, CDP, CP, TSHX #### [facility] [address] [place] [address] 98636 Gas Specialist: Chato Aguirre MD Eosinophils/100 WBC (Bld) 2 % Normal 1-4 [facility] Comment on above: Performed By: #### L IPRF, CDP, CP, TSHX #### [address] [address] Gas Specialist: Chato Aguirre MD Erythrocyte distribution width (RBC) [Ratio] 12.4 % Normal 11.8-14.4 [facility] Comment on above: Performed By: #### L IPRF, CDP, CP, TSHX #### [address] [address] Gas Specialist: Chato Aguirre MD Hematocrit (Bld) [Volume fraction] 42.9 % Normal 36.3-47.1 [facility] Comment on above: Performed By: #### L IPRF, CDP, CP, TSHX #### [facility] [address] [place] [address] 37995 Gas Specialist: Chato Aguirre MD Hemoglobin (Bld) [Mass/Vol] 13.5 g/dL Normal 11.9-15.1 [facility] Comment on above: Performed By: #### L IPRF, CDP, CP, TSHX #### [facility] [address] [place] [address] 33448 Gas Specialist: Chato Aguirre MD Immature granulocytes/100 WBC (Bld) 0 % Normal 0 [facility] Comment on above: Performed By: #### L IPRF, CDP, CP, TSHX #### [address] [address] Gas Specialist: Chato Aguirre MD Lymphocytes (Bld) [#/Vol] 2.71 10*3/uL Normal 1.10-3.70 [facility] Comment on above: Performed By: #### L IPRF, CDP, CP, TSHX #### [address] [address] Gas Specialist: Chato Aguirre MD Lymphocytes/100 WBC (Bld) 30 % Normal 24-43 [facility] Comment on above: Performed By: #### L IPRF, CDP, CP, TSHX #### [place] [address] Gas Specialist: Chato Aguirre MD MCH (RBC) [Entitic mass] 27.6 pg Normal 25.2-33.5 [facility] Comment on above: Performed By: #### L IPRF, CDP, CP, TSHX #### [place] [address] Gas Specialist: Chato Aguirre MD MCHC (RBC) [Mass/Vol] 31.5 g/dL Normal 28.4-34.8 [facility] Comment on above: Performed By: #### L IPRF, CDP, CP, TSHX #### [place] [address] Gas Specialist: Chato Aguirre MD MCV (RBC) [Entitic vol] 87.6 fL Normal 82.6-102.9 [facility] Comment on above: Performed By: #### L IPRF, CDP, CP, TSHX #### [facility] [address] [place] [address] Gas Specialist: Chato Aguirre MD Monocytes (Bld) [#/Vol] 0.48 10*3/uL Normal 0.10-1.20 [facility] Comment on above: Performed By: #### L IPRF, CDP, CP, TSHX #### [address] [address] Gas Specialist: Chato Aguirre MD Monocytes/100 WBC (Bld) 5 % Normal 3-12 [facility] Comment on above: Performed By: #### L IPRF, CDP, CP, TSHX #### [address] [address] Gas Specialist: Chato Aguirre MD Neutrophil (Seg) 62 % Normal 36-65 [facility] Comment on above: Performed By: #### L IPRF, CDP, CP, TSHX #### [address] [address] Gas Specialist: Chato Aguirre MD NRBC Automated 0.0 per 100 WBC Normal 0.0 [facility] Comment on above: Performed By: #### L IPRF, CDP, CP, TSHX #### [address] [address] Gas Specialist: Chato Aguirre MD Platelet mean volume (Bld) [Entitic vol] 11.6 fL Normal 8.1-13.5 [facility] Comment on above: Performed By: #### L IPRF, CDP, CP, TSHX #### [address] [address] Gas Specialist: Chato Aguirre MD Platelets (Bld) [#/Vol] 246 10*3/uL Normal 138-453 [facility] Comment on above: Performed By: #### L IPRF, CDP, CP, TSHX #### [address] [address] Gas Specialist: Chato Aguirre MD RBC (Bld) [#/Vol] 4.90 10*6/uL Normal 3.95-5.11 [facility] Comment on above: Performed By: #### L IPRF, CDP, CP, TSHX #### [address] [address] Gas Specialist: Chato Aguirre MD WBC (Bld) [#/Vol] 9.2 10*3/uL Normal 3.5-11.3 [facility] Comment on above: Performed By: #### L IPRF, CDP, CP, TSHX #### [address] [address] Gas Specialist: Chato Aguirre MD Auto Diff Performed NOT REPORTED Normal [facility] Comment on above: Performed By: #### L IPRF, CDP, CP, TSHX #### [address] [address] Gas Specialist: Chato Aguirre MD Platelet Estimate NOT REPORTED Normal [facility] Comment on above: Performed By: #### L IPRF, CDP, CP, TSHX #### [address] [address] Gas Specialist: Chato Aguirre MD RBC morphology finding Nom (Bld) NOT REPORTED Normal [facility] Comment on above: Performed By: #### L IPRF, CDP, CP, TSHX #### [address] [address] Gas Specialist: Chato Aguirre MD WBC Morphology NOT REPORTED Normal [facility] Comment on above: Performed By: #### L IPRF, CDP, CP, TSHX #### [facility] [address] [place] [address] Gas Specialist: Chato Aguirre MD Comp Metabolic Profon 2020 BUN/CRE Ratio NOT REPORTED Normal 02-17 [facility] Comment on above: Performed By: #### L IPRF, CDP, CP, TSHX #### [address] [address] Gas Specialist: Chato Aguirre MD Staging: NOT REPORTED Normal [facility] Comment on above: Performed By: #### L IPRF, CDP, CP, TSHX #### [facility] [address] [place] [address] Gas Specialist: Chato Aguirre MD Comprehensive Metabolic Pane lOrdered By: 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 on 09-23-2020 Albumin [Mass/Vol] 4.3 g/dL 3.5 - 5.2 g/dL [employer] Phone: Albumin/Globulin [Mass ratio] 1.3 {ratio} [employer] Phone: ALP (Bld) [Catalytic activity/Vol] 49 U/L 35 - 104 U/L [employer] Phone: ALT [Catalytic activity/Vol] 36 U/L High 5 - 33 U/L [employer] Phone: Anion gap [Moles/Vol] 11 mmol/L 9 - 17 mmol/L [employer] Phone: AST [Catalytic activity/Vol] 27 U/L <32 [employer] Phone: Bilirubin [Mass/Vol] 0.34 mg/dL 0.3 - 1 .2 mg/dL [employer] Phone: Calcium [Mass/Vol] 9.5 mg/dL 8.6 - 10. 4 mg/dL [employer] Phone: Chloride [Moles/Vol] 102 mmol/L 98 - 10 7 mmol/L [employer] Phone: CO2 [Moles/Vol] 22 mmol/L 20 - 31 mmol/L [employer] Phone: Creatinine [Mass/Vol] 0.46 mg/dL Low 0.50 - 0.90 mg/dL [employer] Phone: Free PSA/Total PSA [Mass fraction] 7.5 g/dL 6.4 - 8.3 g/dL [employer] Phone: GFR >60 >60 mL/min [email or web address]. Phone: GFR Non- >60 >60 mL/min [employer] Phone: GFR/1.73 sq M.predicted MDRD (S/P/Bld) [Vol rate/Area] [employer] Phone: Comment on above: Average GFR for 20-2 9 years old: 116 mL/min/1.73sq m Chronic Kidney Disease: <60 mL/min/1.73sq m Kidney failure: <15 mL/min/1.73sq m eGFR calculated using average adult body mass. Additional eGFR calculator available at: http://www.[employer]/GIROPTIC_crcl_2012.htm GFR/1.73 sq M.predicted MDRD (S/P/Bld) [Vol rate/Area] NOT REPORTED [employer] Phone: Glucose [Mass/Vol] 92 mg/dL 70 - 99 mg/dL [employer] Phone: Potassium [Moles/Vol] 4.2 mmol/L 3.7 - 5.3 mmol/L [employer] Phone: Sodium [Moles/Vol] 135 mmol/L 135 - 144 mmol/L [employer] Phone: Urea nitrogen (BldV) [Mass/Vol] 11 mg/dL 6 - 20 mg/dL [employer] Phone: Urea nitrogen/Creatinine (Bld) [Mass ratio] NOT REPORTED [employer] Phone: Laboratory - Chemistry and C hemistry - challengeOrdered By: 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 on 09-23-2020 Albumin [Mass/Vol] 4.3 g/dL (3.5-5.2 ) [facility] Work Phone: Comment on above: Note: Responsible Ob traffic observer: [employer] AUTO[employer] ([id number]) ALT [Catalytic activity/Vol] 36 U/L High (5-33 ) [facility] Work Phone: Comment on above: Note: Responsible Ob traffic observer: [employer] (3003) Anion gap [Moles/Vol] 11 mmol/L (9-17 ) [facility] Work Phone: Comment on above: Note: Responsible Ob traffic observer: [employer] (3003) AST [Catalytic activity/Vol] 27 U/L (<32 ) [facility] Work Phone: Comment on above: Note: Responsible Ob traffic observer: [employer] (3003) Bilirubin [Mass/Vol] 0.34 mg/dL (0.3-1.2 ) [facility] Work Phone: Comment on above: Note: Responsible Ob traffic observer: [employer] (3003) Calcium [Mass/Vol] 9.5 mg/dL (8.6-10.4 ) [facility] Work Phone: Comment on above: Note: Responsible Ob traffic observer: [employer] (3003) Chloride [Moles/Vol] 102 mmol/L (98-107 ) [facility] Work Phone: Comment on above: Note: Responsible Ob traffic observer: [employer] (3003) Cholesterol [Mass/Vol] 186 mg/dL (<200 ) [facility] Work Phone: Comment on above: Note: Cholesterol Gu idelines:<200 [id number] Borderline>240 UndesirableResponsible Observer: [employer] (3003) Cholesterol.total/Chol esterol in HDL [Mass ratio] 3.8 {ratio} (<5 ) [facility] Work Phone: Comment on above: Note: Responsible Ob traffic observer: [employer] (3003) CO2 [Moles/Vol] 22 mmol/L (20-31 ) [facility] Work Phone: Comment on above: Note: Responsible Ob traffic observer: [employer] (3003) Creatinine [Mass/Vol] 0.46 mg/dL Low (0.50- 0.90 ) [facility] Work Phone: Comment on above: Note: Responsible Ob traffic observer: [employer] (3003) Glucose [Mass/Vol] 92 mg/dL (70-99 ) [facility] Work Phone: Comment on above: Note: Responsible Ob traffic observer: [employer] (3003) Magnesium [Mass/Vol] 49 mg/dL (>40 ) [facility] Work Phone: Comment on above: Note: HDL Guidelines :<40 Tloyicyhlme25-49 Borderline>59 DesirableResponsible Observer: SHEA [employer] (3003) Magnesium [Mass/Vol] 102 mg/dL (0-130 ) [facility] Work Phone: Comment on above: Note: LDL Guidelines :<100 [id number] Near to/above [id number] Borderline>159 UndesirableDirect (measured) LDL and calculated LDL are not interchangeable tests.Responsible Observer: [employer] (3003) Magnesium [Mass/Vol] 173 mg/dL High (<150 ) [facility] Work Phone: Comment on above: Note: Triglyceride G uidelines:<150 [id number] Gdeayahjef174-613 High>499 Very highBased on AHA Guidelines for fasting triglyceride, February 2012.Responsible Observer: [employer] (3003) Potassium [Moles/Vol] 4.2 mmol/L (3.7-5.3 ) [facility] Work Phone: Comment on above: Note: Responsible Ob traffic observer: ABBIEEV [employer] (3003) Protein [Mass/Vol] 7.5 g/dL (6.4-8.3 ) [facility] Work Phone: Comment on above: Note: Responsible Ob traffic observer: AB[employer]V [employer] (3003) Sodium [Moles/Vol] 135 mmol/L (135-144 ) [facility] Work Phone: Comment on above: Note: Responsible Ob traffic observer: [employer] (3003) Urea nitrogen [Mass/Vol] 11 mg/dL (6-20 ) [facility] Work Phone: Comment on above: Note: Responsible Ob traffic observer: [employer] (3003) Laboratory - Hematology and Cell countsOrdered By: 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 on 09-23-2020 Basophils/100 WBC (Bld) 1 % (0-2 ) [facility] Work Phone: Comment on above: Note: Responsible Ob traffic observer: [employer] (3018) Eosinophils (Bld) [#/Vol] 0.14 10*3/uL (0.00-0.44 ) [facility] Work Phone: Comment on above: Note: Responsible Ob traffic observer: [employer] (3018) Eosinophils/100 WBC (Bld) 2 % (1-4 ) [facility] Work Phone: Comment on above: Note: Responsible Ob traffic observer: [employer] (3018) Erythrocyte distribution width (RBC) [Ratio] 12.4 % (11.8-14.4 ) [facility] Work Phone: Comment on above: Note: Responsible Ob traffic observer: [employer] (3018) Hematocrit (Bld) [Volume fraction] 42.9 % (36.3-47.1 ) [facility] Work Phone: Comment on above: Note: Responsible Ob traffic observer: [employer] (3018) Hemoglobin (Bld) [Mass/Vol] 13.5 g/dL (11.9-15.1 ) [facility] Work Phone: Comment on above: Note: Responsible Ob traffic observer: [employer] (3018) Immature granulocytes/100 WBC (Bld) 0 % (0 ) [facility] Work Phone: Comment on above: Note: Responsible Ob traffic observer: [employer] (3018) Lymphocytes (Bld) [#/Vol] 2.71 10*3/uL (1.10-3.70 ) [facility] Work Phone: Comment on above: Note: Responsible Ob traffic observer: [employer] (3018) Lymphocytes/100 WBC (Bld) 30 % (24-43 ) [facility] Work Phone: Comment on above: Note: Responsible Ob traffic observer: [employer] (3018) MCH (RBC) [Entitic mass] 27.6 pg (25.2-33.5 ) [facility] Work Phone: Comment on above: Note: Responsible Ob traffic observer: [employer] (3018) MCHC (RBC) [Mass/Vol] 31.5 g/dL (28.4- 34.8 ) [facility] Work Phone: Comment on above: Note: Responsible Ob traffic observer: [employer] (3018) MCV (RBC) [Entitic vol] 87.6 fL (82.6-102.9 ) [facility] Work Phone: Comment on above: Note: Responsible Ob traffic observer: [employer] (3018) Monocytes (Bld) [#/Vol] 0.48 10*3/uL (0.10-1.20 ) [facility] Work Phone: Comment on above: Note: Responsible Ob traffic observer: [employer] (3018) Monocytes/100 WBC (Bld) 5 % (3-12 ) [facility] Work Phone: Comment on above: Note: Responsible Ob traffic observer: [employer] (3018) Platelet mean volume (Bld) [Entitic vol] 11.6 fL (8.1-13.5 ) [facility] Work Phone: Comment on above: Note: Responsible Ob traffic observer: [employer] (3018) Platelets (Bld) [#/Vol] 246 10*3/uL (138-453 ) [facility] Work Phone: Comment on above: Note: Responsible Ob traffic observer: [employer] (3018) RBC (Bld) [#/Vol] 4.90 10*6/uL (3.95-5.11 ) [facility] Work Phone: Comment on above: Note: Responsible Ob traffic observer: [employer] (3017) RBC morphology finding Nom (Bld) NOT REPORTED [facility] Work Phone: Segmented neutrophils/100 WBC (Bld) 62 % (36-65 ) [facility] Work Phone: Comment on above: Note: Responsible Ob traffic observer: [employer] (3017) WBC (Bld) [#/Vol] 9.2 10*3/uL (3.5-11.3 ) [facility] Work Phone: Comment on above: Note: Responsible Ob traffic observer: [employer] (301) Lipid Prof, Fastingon 2020 Cholesterol,VLDL NOT REPORTED Normal 06-29 [facility] Comment on above: Performed By: #### L IPRF, CDP, CP, TSHX #### [facility] [place] [address] Gas Specialist: Chato Aguirre MD Lipid, FastingOrdered By: Zandra Sharpe on 09-23-2020 Cholesterol [Mass/Vol] 186 mg/dL <200 [facility] Work Phone: Comment on above: Cholesterol Guidelines: <200 Desirable 200-240 Borderline >240 Undesirable Cholesterol in HDL [Mass/Vol] 49 mg/dL >40 [employer] Phone: Comment on above: HDL Guidelines: <40 Undesirable 40-59 Borderline >59 Desirable Cholesterol in LDL [Mass/Vol] 102 mg/dL 0 - 130 mg/dL [employer] Phone: Comment on above: LDL Guidelines: <100 Desirable 100-129 Near to/above Desirable 130-159 Borderline >159 Undesirable Direct (measured) LDL and calculated LDL are not interchangeable tests. Cholesterol in VLDL [Mass/Vol] NOT REPORTED High 1 - 30 mg/dL [facility] Phone: Cholesterol.total/Chol esterol in HDL [Mass ratio] 3.8 {ratio} <5 [facility] Phone: Triglyceride, Fasting 173 mg/dL High <150 [facility] [employer] Work Phone: Comment on above: Triglyceride Guidelines: <150 Desirable 150-199 Borderline 200-499 High >499 Very high Based on AHA Guidelines for fasting triglyceride, February 2012. No Panel InformationOrdered By: 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 on 09-23-2020 Interpretation and review of laboratory results Abnormal [facility] Work Phone: (cont.) See Note [facility] Work Phone: Comment on above: Note: Average GFR fo r 20-29 years old:116 mL/min/1.73sq mChronic Kidney Disease:<60 mL/min/1.73sq mKidney failure:<15 mL/min/1.73sq meGFR calculated using average adult body mass. Additional eGFR calculatoravailable at:http://www.[employer]/multiple_crcl_2011.htmResponsible Observer: CEEV AUTOFILE ([id number]) Abs. Basophil 0.05 k/uL (0.00-0.20 ) [facility] Work Phone: Comment on above: Note: Responsible Ob traffic observer: XNV AUTOFILE ([id number]) Abs.Imm.Granulocyte <0.03 k/uL (0.00-0. 30 ) [facility] Work Phone: Comment on above: Note: Responsible Ob traffic observer: XNV AUTOFILE (274) Abs.Neutrophil (Seg) 5.79 k/uL (1.50-8 .10 ) [facility] Work Phone: Comment on above: Note: Responsible Ob traffic observer: XNV AUTOFILE ([id number]) Albumin/Glob Ratio 1.3 (1.0-2.5 ) [facility] Work Phone: Comment on above: Note: Responsible Ob traffic observer: CEEV AUTOFILE ([id number]) Alkaline Phos 49 U/L (35-104 ) [facility] Work Phone: Comment on above: Note: Responsible Ob traffic observer: CEEV AUTOFILE ([id number]) Auto Diff Performed NOT REPORTED [facility] Work Phone: BUN/CRE Ratio NOT REPORTED (9-20 ) [facility] Work Phone: Cholesterol,VLDL NOT REPORTED mg/dL (1-30 ) [facility] Work Phone: GFR, Amer >60 mL/min (>60 ) [facility] Work Phone: Comment on above: Note: Responsible Ob traffic observer: CEEV AUTOFILE ([id number]) GFR,non Amer >60 mL/min (>60 ) [facility] Work Phone: Comment on above: Note: Responsible Ob traffic observer: CEEV AUTOFILE ([id number]) NRBC Automated 0.0 per_100_WBC (0.0 ) [facility] Work Phone: Comment on above: Note: Responsible Ob traffic observer: XNV AUTOFILE ([id number]) Platelet Estimate NOT REPORTED [facility] Work Phone: Reported Physicians See Note [facility] Work Phone: Comment on above: Note: Reported Physi cians:Ordering: Cotton, AimeeAttending: Cotton, AimeeReferring: Cotton, Miguel Staging: NOT REPORTED [facility] Work Phone: Thyroid Stim. Horm. 3.38 mIU/L (0.30-5. 00 ) [facility] Work Phone: Comment on above: Note: Responsible Ob traffic observer: CEEV AUTOFILE ([id number]) WBC Morphology NOT REPORTED [facility] Work Phone: TSH with ReflexOrdered By: Kamryn Sharpe on 09-23-2020 TSH Qn 3.38 m[IU]/L [facility] Work Phone: APTTon 04-08-2020 aPTT Coag (Bld) [Time] 25.2 s [place], [place] Comment on above: IV Heparin Therapy Range: 62.0-94.0 Brain Natriuretic Peptideon 04-08-2020 Natriuretic peptide B (Bld) [Mass/Vol] pg/mL <300 pg/mL [place], [place] Comment on above: Pro-BNP results ayse ot be compared to BNP results. Natriuretic peptide B (Bld) [Mass/Vol] Pro-BNP Reference Range: [place], [place] Comment on above: Rule Out: <300 Weaver Zone: Age <50 300-450 Age 50-75 300-900 Age >75 300-1800 Usually represents mild to moderate HF but other cardiopulmonary causes cannot be ruled out. Rule In: Age <50 >450 Age 50-75 >900 Age >75 >1800 CBCon 04-08-2020 Erythrocyte distribution width (RBC) [Ratio] 11.9 % 11.8 - 14.4 % [place] Hematocrit (Bld) [Volume fraction] 37.9 % 36.3 - 47.1 % [place] Hemoglobin (Bld) [Mass/Vol] 12.5 g/dL 11.9 - 15.1 g/dL [place] MCH (RBC) [Entitic mass] 27.8 pg 25.2 - 33.5 pg [place] MCHC (RBC) [Mass/Vol] 33.0 g/dL 28.4 - 34.8 g/dL [place] MCV (RBC) [Entitic vol] 84.2 fL 82.6 - 102.9 fL [place] Platelet mean volume (Bld) [Entitic vol] 10.9 fL 8.1 - 13.5 fL [place] Platelets (Bld) [#/Vol] 184 10*3/uL [place] RBC (Bld) [#/Vol] 4.50 10*6/uL 3.95 - 5.1 1 m/uL [place] WBC (Bld) [#/Vol] 7.8 10*3/uL [place] WBC (Bld) [#/Vol] 0.0 10*3/uL 0.0 per 10 0 WBC [place] COVID-19on 04-08-2020 Interpretation and review of laboratory results Abnormal [place] SARS-CoV-2, Rapid DETECTED Abnormal Not Detected [place] Comment on above: Rapid NAAT: The [...] this assay. Fact sheet for Healthcare Providers: https://www.fda.gov/media/879245/download Fact sheet for Patients: https://www.fda.gov/media/841563/download Methodology: Isothermal Nucleic Acid Amplification Results reported to the appropriate Health Department Source .NASOPHARYNGEAL SWAB [place], [place] CT CHEST PULMONARY EMBOLISM W CONTRASTon 04-08-2020 Unremarkable appeara nce of the chest with no evidence of pulmonary embolism and clear lungs. Incidentally noted hepatic fatty infiltration. [place] EXAMINATION: CTA OF THE CHEST 04/08/2020 [...] No significant osseous or soft tissue abnormality. [place], [place] Jean Marie, Mhpn Incoming Radiant Results From Myrl/Pacs - 04/08/2020 4:12 PM EST EXAMINATION: CTA [...] clear lungs. Incidentally noted hepatic fatty infiltration. [place] Comprehensive Metabolic Pane fermin 04-08-2020 Albumin [Mass/Vol] 4.1 g/dL 3.5 - 5.2 g/dL [place] Albumin/Globulin [Mass ratio] 1.4 {ratio} [place] ALP [Catalytic activity/Vol] 62 U/L 35 - 104 U/L [place] ALT [Catalytic activity/Vol] 19 U/L 5 - 33 U/L [place] Anion gap [Moles/Vol] 10 mmol/L 9 - 17 mmol/L [place] AST [Catalytic activity/Vol] 20 U/L <32 [place] Bilirubin Ql (U) 0.48 mg/dL 0.3 - 1.2 mg/dL [place] Bun/Cre Ratio 23 High [place] Calcium [Mass/Vol] 8.9 mg/dL 8.6 - 10. 4 mg/dL [place] Chloride [Moles/Vol] 102 mmol/L 98 - 10 7 mmol/L [place] CO2 [Moles/Vol] 23 mmol/L 20 - 31 mmol/L [place] Creatinine [Mass/Vol] 0.47 mg/dL Low 0.5 - 0.9 mg/dL [place] GFR >60 >60 mL/min [place] GFR Non- >60 >60 mL/min [place] Glucose [Mass/Vol] 88 mg/dL 70 - 99 mg/dL [place] Interpretation and review of laboratory results Abnormal [place] Potassium [Moles/Vol] 3.7 mmol/L 3.7 - 5.3 mmol/L [place] Protein [Mass/Vol] 7.1 g/dL 6.4 - 8.3 g/dL [place] Sodium [Moles/Vol] 135 mmol/L 135 - 144 mmol/L [place] Urea nitrogen [Mass/Vol] 11 mg/dL 6 - 20 mg/dL [place] Metabolic Panelon 04-08-2020 GFR/1.73 sq M predicted among non-blacks MDRD (S/P/Bld) [Vol rate/Area] [place], [place] Comment on above: Stage 1: Some [...] body mass. Additional eGFR calculator available at: http://www.[employer]multiple_crcl_2012.htm Otheron 04-08-2020 SARS-CoV-2 [place], [place] , Urineon 0 Beta HCG ( test) Ql (U) Negative NEGATIVE [place] Comment on above: Specimens with hCG l evels near the threshold of the test (25 mIU/mL) may give a negative or indeterminate result. In such cases, another test should be performed with a new specimen in 48-72 hours. If early is suspected clinically in this setting, correlation with quantitative serum b-hCG level is suggested. [facility] has confirmed the use of plasma for this test. This has not been cleared or approved by the U.S. Food and Drug Administration. The FDA has determined that such clearance is not necessary. Protime-INRon 04-08-2020 INR Coag (PPP) [Relative time] 1.0 {INR} [place] Comment on above: Non-therapeutic Range: INR = 0.9-1.2 Therapeutic Range: Moderate Anticoagulant Intensity: INR = 2.0-3.0 High Anticoagulant Intensity: INR = 2.5-3.5 PT Coag (PPP) [Time] 13.2 s [place] Troponinon 04-08-2020 Troponin I.cardiac [Mass/Vol] NOT REPORTED [place] Troponin T.cardiac [Mass/Vol] NOT REPORTED <0.03 ng/mL [place] Troponin, High Sensitivity <6 0 - 14 ng/L [place] Comment on above: High Sensitivity Troponin values cannot be compared with other Troponin methodologies. Patients with high levels of Biotin oral intake (i.e >5mg/day) may have falsely decreased Troponin levels. Samples collected within 8 hours of biotin intake may require additional information for diagnosis. CBC Auto Differentialon 0 Basophils (Bld) [#/Vol] 0.05 10*3/uL [facility] Phone: Basophils/100 WBC (Bld) 1 % 0 - 2 % [employer] Phone: Differential Type NOT REPORTED [employer] Phone: Eosinophils (Bld) [#/Vol] 0.15 10*3/uL [employer] Phone: Eosinophils/100 WBC (Bld) 1 % 1 - 4 % [employer] Phone: Erythrocyte distribution width (RBC) [Ratio] 12.1 % 11.8 - 14.4 % [employer] Phone: Hematocrit (Bld) [Volume fraction] 44.5 % 36.3 - 47.1 % [employer] Phone: Hemoglobin (Bld) [Mass/Vol] 14.0 g/dL 11.9 - 15.1 g/dL [employer] Phone: Immature granulocytes (Bld) [#/Vol] 0 % 0 [employer] Phone: Immature granulocytes (Bld) [#/Vol] 10*3/uL [employer] Phone: Interpretation and review of laboratory results Abnormal [employer] Phone: Lymphocytes (Bld) [#/Vol] 2.83 10*3/uL [employer] Phone: Lymphocytes/100 WBC (Bld) 27 % 24 - 43 % [employer] Phone: MCH (RBC) [Entitic mass] 27.6 pg 25.2 - 33.5 pg [employer] Phone: MCHC (RBC) [Mass/Vol] 31.5 g/dL 28.4 - 34.8 g/dL [employer] Phone: MCV (RBC) [Entitic vol] 87.6 fL 82.6 - 102.9 fL [employer] Phone: Monocytes (Bld) [#/Vol] 0.52 10*3/uL [employer] Phone: Monocytes/100 WBC (Bld) 5 % 3 - 12 % [employer] Phone: Platelet mean volume (Bld) [Entitic vol] 12.0 fL 8.1 - 13.5 fL [employer] Work Phone: Platelets (Bld) [#/Vol] NOT REPORTED [employer] Work Phone: Platelets (Bld) [#/Vol] 241 10*3/uL [employer] Work Phone: RBC (Bld) [#/Vol] 5.08 10*6/uL 3.95 - 5.1 1 m/uL [employer] Work Phone: RBC morphology finding Nom (Bld) NOT REPORTED [employer] Work Phone: Segmented neutrophils/100 WBC (Bld) 66 % High 36 - 65 % [employer] Work Phone: Segs Absolute 7.04 [facility] Work Phone: WBC (Bld) [#/Vol] 10.6 10*3/uL [employer] Work Phone: WBC (Bld) [#/Vol] 0.0 10*3/uL 0.0 per 10 0 WBC [employer] Work Phone: WBC Morphology NOT REPORTED [facility] Work Phone: Cardiacon 07-06-2019 Cholesterol [Mass/Vol] 198 mg/dL (<200) [facility] Work Phone: Comment on above: Note: Cholesterol Gu idelines:<200 [id number] Borderline>240 UndesirableResponsible Observer: CCEV AUTOFILE ([id number]) Comprehensive Metabolic Pane fermin 07-06-2019 Albumin [Mass/Vol] 4.5 g/dL 3.5 - 5.2 g/dL [employer] Work Phone: Albumin/Globulin [Mass ratio] 1.4 {ratio} [employer] Work Phone: ALP [Catalytic activity/Vol] 62 U/L 35 - 104 U/L [employer] Work Phone: ALT [Catalytic activity/Vol] 39 U/L High 5 - 33 U/L [employer] Phone: Anion gap [Moles/Vol] 16 mmol/L 9 - 17 mmol/L [employer] Phone: AST [Catalytic activity/Vol] 32 U/L High <32 [employer] Phone: Bilirubin Ql (U) 0.25 mg/dL Low 0.3 - 1.2 mg/dL [employer] Phone: Bun/Cre Ratio NOT REPORTED [facility] Work Phone: Calcium [Mass/Vol] 9.8 mg/dL 8.6 - 10. 4 mg/dL [employer] Phone: Chloride [Moles/Vol] 103 mmol/L 98 - 10 7 mmol/L [employer] Phone: CO2 [Moles/Vol] 19 mmol/L Low 20 - 31 mmol/L [employer] Phone: Creatinine [Mass/Vol] 0.51 mg/dL 0.5 - 0.9 mg/dL [employer] Phone: GFR >60 >60 mL/min [email or web address]. Phone: GFR Non- >60 >60 mL/min [employer] Phone: GFR/1.73 sq M predicted among non-blacks MDRD (S/P/Bld) [Vol rate/Area] [employer] Phone: Comment on above: Average GFR for 20-2 9 years old: 116 mL/min/1.73sq m Chronic Kidney Disease: <60 mL/min/1.73sq m Kidney failure: <15 mL/min/1.73sq m eGFR calculated using average adult body mass. Additional eGFR calculator available at: http://www.[employer]multiple_crcl_2012.htm GFR/1.73 sq M predicted among non-blacks MDRD (S/P/Bld) [Vol rate/Area] NOT REPORTED [employer] Phone: Glucose [Mass/Vol] 89 mg/dL 70 - 99 mg/dL [employer] Phone: Interpretation and review of laboratory results Abnormal [employer] Phone: Potassium [Moles/Vol] 4.6 mmol/L 3.7 - 5.3 mmol/L [employer] Phone: Protein [Mass/Vol] 7.8 g/dL 6.4 - 8.3 g/dL [employer] Phone: Sodium [Moles/Vol] 138 mmol/L 135 - 144 mmol/L [employer] Phone: Urea nitrogen [Mass/Vol] 14 mg/dL 6 - 20 mg/dL [employer] Phone: Hematologyon 07-06-2019 Basophils/100 WBC (Bld) 1 % (0-2) [facility] Work Phone: Comment on above: Note: Responsible Ob traffic observer: XNV AUTOFILE ([id number]) Eosinophils (Bld) [#/Vol] 0.15 10*3/uL (0.00-0.44) [facility] Work Phone: Comment on above: Note: Responsible Ob traffic observer: XNV AUTOFILE ([id number]) Eosinophils/100 WBC (Bld) 1 % (1-4) [facility] Work Phone: Comment on above: Note: Responsible Ob traffic observer: XNV AUTOFILE ([id number]) Hematocrit (Bld) [Volume fraction] 44.5 % (36.3-47.1) [facility] Work Phone: Comment on above: Note: Responsible Ob traffic observer: XNV AUTOFILE ([id number]) Hemoglobin (Bld) [Mass/Vol] 14.0 g/dL (11.9-15.1) [facility] Work Phone: Comment on above: Note: Responsible Ob traffic observer: XNV AUTOFILE ([id number]) Lymphocytes (Bld) [#/Vol] 2.83 10*3/uL (1.10-3.70) [facility] Work Phone: [phone] Comment on above: Note: Responsible Ob traffic observer: XNV AUTOFILE ([id number]) Lymphocytes/100 WBC (Bld) 27 % (24-43) [facility] Work Phone: [phone] Comment on above: Note: Responsible Ob traffic observer: XNV AUTOFILE ([id number]) MCH (RBC) [Entitic mass] 27.6 pg (25.2-33.5) [facility] Work Phone: [phone] Comment on above: Note: Responsible Ob traffic observer: XNV AUTOFILE ([id number]) MCV (RBC) [Entitic vol] 87.6 fL (82.6-102.9 ) [facility] Work Phone: [phone] Comment on above: Note: Responsible Ob traffic observer: XNV AUTOFILE ([id number]) Monocytes (Bld) [#/Vol] 0.52 10*3/uL (0.10-1.20) [facility] Work Phone: [phone] Comment on above: Note: Responsible Ob traffic observer: XNV AUTOFILE ([id number]) Monocytes/100 WBC (Bld) 5 % (3-12) [facility] Work Phone: [phone] Comment on above: Note: Responsible Ob traffic observer: XNV AUTOFILE ([id number]) Platelets (Bld) [#/Vol] NOT REPORTED [facility] Work Phone: [phone] Platelets (Bld) [#/Vol] 241 10*3/uL (138-453) [facility] Work Phone: Comment on above: Note: Responsible Ob traffic observer: XNV AUTOFILE ([id number]) RBC (Bld) [#/Vol] 5.08 10*6/uL (3.95-5.11) [facility] Work Phone: Comment on above: Note: Responsible Ob traffic observer: XNV AUTOFILE ([id number]) RBC morphology finding Nom (Bld) NOT REPORTED [facility] Work Phone: WBC (Bld) [#/Vol] 0.0 per_100_WBC (0.0) [facility] Work Phone: Comment on above: Note: Responsible Ob traffic observer: XNV AUTOFILE ([id number]) WBC (Bld) [#/Vol] 10.6 10*3/uL (3.5-11.3) [facility] Work Phone: Comment on above: Note: Responsible Ob traffic observer: XNV AUTOFILE ([id number]) Lipid, Fastingon 07-06-2019 Cholesterol [Mass/Vol] 198 mg/dL <200 [facility] Phone: Comment on above: Cholesterol Guidelines: <200 Desirable 200-240 Borderline >240 Undesirable Cholesterol in HDL [Mass/Vol] 53 mg/dL >40 [facility] [employer] Phone: Comment on above: HDL Guidelines: <40 Undesirable 40-59 Borderline >59 Desirable Cholesterol in LDL [Mass/Vol] 118 mg/dL 0 - 130 mg/dL [facility] Phone: Comment on above: LDL Guidelines: <100 Desirable 100-129 Near to/above Desirable 130-159 Borderline >159 Undesirable Direct (measured) LDL and calculated LDL are not interchangeable tests. Cholesterol in VLDL [Mass/Vol] NOT REPORTED 1 - 30 mg/dL [facility] Phone: Cholesterol.total/Chol esterol in HDL [Mass ratio] 3.7 {ratio} <5 [facility] Phone: Triglyceride, Fasting 135 mg/dL <150 [facility] [employer] Phone: Comment on above: Triglyceride Guidelines: <150 Desirable 150-199 Borderline 200-499 High >499 Very high Based on AHA Guidelines for fasting triglyceride, February 2012. Metabolic Panelon 07-06-2019 Albumin [Mass/Vol] 4.5 g/dL (3.5-5.2) [facility] Work Phone: Comment on above: Note: Responsible Ob traffic observer: CCEV AUTOFILE (3002) ALT [Catalytic activity/Vol] 39 U/L High (5-33) [facility] Work Phone: Comment on above: Note: Responsible Ob traffic observer: CCEV AUTOFILE (3002) Anion gap [Moles/Vol] 16 mmol/L (9-17) [facility] Work Phone: Comment on above: Note: Responsible Ob traffic observer: CCEV AUTOFILE (3002) AST [Catalytic activity/Vol] 32 U/L High (<32) [facility] Work Phone: Comment on above: Note: Responsible Ob traffic observer: CCEV AUTOFILE (3002) Bilirubin [Mass/Vol] 0.25 mg/dL Low (0.3-1.2) [facility] Work Phone: Comment on above: Note: Responsible Ob traffic observer: CCEV AUTOFILE (3002) Calcium [Mass/Vol] 9.8 mg/dL (8.6-10.4) [facility] Work Phone: Comment on above: Note: Responsible Ob traffic observer: CCEV AUTOFILE (3002) Chloride [Moles/Vol] 103 mmol/L (98-107) [facility] Work Phone: Comment on above: Note: Responsible Ob traffic observer: CCEV AUTOFILE (3002) CO2 [Moles/Vol] 19 mmol/L Low (20-31) [facility] Work Phone: Comment on above: Note: Responsible Ob traffic observer: CCEV AUTOFILE (3002) Creatinine [Mass/Vol] 0.51 mg/dL (0.50-0.90) [facility] Work Phone: Comment on above: Note: Responsible Ob traffic observer: CCEV AUTOFILE (3002) Glucose [Mass/Vol] 89 mg/dL (70-99) [facility] Work Phone: Comment on above: Note: Responsible Ob traffic observer: CCEV AUTOFILE (3002) Potassium [Moles/Vol] 4.6 mmol/L (3.7-5.3) [facility] Work Phone: Comment on above: Note: Responsible Ob traffic observer: CCEV AUTOFILE (3002) Protein [Mass/Vol] 7.8 g/dL (6.4-8.3) [facility] Work Phone: Comment on above: Note: Responsible Ob traffic observer: CCEV AUTOFILE (3002) Sodium [Moles/Vol] 138 mmol/L (135-144) [facility] Work Phone: Comment on above: Note: Responsible Ob traffic observer: CCEV AUTOFILE (3002) Urea nitrogen [Mass/Vol] 14 mg/dL (6-20) [facility] Work Phone: Comment on above: Note: Responsible Ob traffic observer: CCEV AUTOFILE (3002) Otheron 07-06-2019 (cont.) See Note [facility] Work Phone: Comment on above: Note: Average GFR fo r 20-29 years old:116 mL/min/1.73sq mChronic Kidney Disease:<60 mL/min/1.73sq mKidney failure:<15 mL/min/1.73sq meGFR calculated using average adult body mass. Additional eGFR calculatoravailable at:http://www.[employer]multiple_crcl_2012.htmResponsible Observer: CCEV AUTOFILE (3002) Abs. Basophil 0.05 k/uL (0.00-0.20) [facility] Work Phone: Comment on above: Note: Responsible Ob traffic observer: XNV AUTOFILE (3018) Abs.Imm.Granulocyte <0.03 k/uL (0.00-0.30) [facility] Work Phone: Comment on above: Note: Responsible Ob traffic observer: XNV AUTOFILE (3018) Abs.Neutrophil (Seg) 7.04 k/uL (1.50-8.10) [facility] Work Phone: Comment on above: Note: Responsible Ob traffic observer: XNV AUTOFILE (3018) Albumin/Glob Ratio 1.4 (1.0-2.5) [facility] Work Phone: [phone] Comment on above: Note: Responsible Ob traffic observer: CCEV AUTOFILE (3002) Alkaline Phos 62 U/L (35-104) [facility] Work Phone: [phone] Comment on above: Note: Responsible Ob traffic observer: CCEV AUTOFILE (3002) Auto Diff Performed NOT REPORTED [facility] Work Phone: [phone] BUN/CRE Ratio NOT REPORTED (9-20) [facility] Work Phone: [phone] Cholesterol,HDL 53 mg/dL (>40) [facility] Work Phone: [phone] Comment on above: Note: HDL Guidelines :<40 [id number] Borderline>59 DesirableResponsible Observer: CCEV AUTOFILE (3002) Cholesterol,LDL 118 mg/dL (0-130) [facility] Work Phone: Comment on above: Note: LDL Guidelines :<100 [id number] Near to/above [id number] Borderline>159 UndesirableDirect (measured) LDL and calculated LDL are not interchangeable tests.Responsible Observer: CCEV AUTOFILE (3002) Cholesterol,VLDL NOT REPORTED mg/dL (1-30) [facility] Work Phone: [phone] Cholesterol.total/Chol esterol in HDL [Mass ratio] 3.7 {ratio} (<5) [facility] Work Phone: Comment on above: Note: Responsible Ob traffic observer: CCEV AUTOFILE (3002) Erythrocyte distribution width (RBC) [Ratio] 12.1 % (11.8-14.4) [facility] Work Phone: Comment on above: Note: Responsible Ob traffic observer: XNV AUTOFILE (3018) Free Insulin 34 uIU/mL High (3-19) [facility] Work Phone: Comment on above: Note: Responsible Ob traffic observer: LAB [facility] (0603) GFR, Amer >60 mL/min (>60) [facility] Work Phone: [phone] Comment on above: Note: Responsible Ob traffic observer: CCEV AUTOFILE (3002) GFR,non Amer >60 mL/min (>60) [facility] Work Phone: [phone] Comment on above: Note: Responsible Ob traffic observer: CCEV AUTOFILE (3002) Immature granulocytes (Bld) [#/Vol] 0 % (0) [facility] Work Phone: [phone] Comment on above: Note: Responsible Ob traffic observer: XNV AUTOFILE (3018) MCHC (RBC) [Mass/Vol] 31.5 g/dL (28.4-34.8) [facility] Work Phone: [phone] Comment on above: Note: Responsible Ob traffic observer: XNV AUTOFILE ([id number]) Performing Lab: see note [facility] Work Phone: [phone] Comment on above: Note: [facility] [address] [facility] [address] Note: [facility] [address] [facility] [address] Platelet mean volume (Bld) [Entitic vol] 12.0 fL (8.1-13.5) [facility] Work Phone: Comment on above: Note: Responsible Ob traffic observer: XNV AUTOFILE (404) Reported Physicians See Note [facility] Work Phone: [phone] Comment on above: Note: Reported Physi cians:Ordering: Allyson Floyd AAttending: No FloydthiaReferring: Allyson Floyd Segmented neutrophils/100 WBC (Bld) 66 % High (36-65) [facility] Work Phone: Comment on above: Note: Responsible Ob traffic observer: XNV AUTOFILE (970) Staging: NOT REPORTED [facility] Work Phone: [phone] Thyroid Stim. Horm. 4.15 mIU/L (0.30-5.00) [facility] Work Phone: Comment on above: Note: Responsible Ob traffic observer: CCEV AUTOFILE (3002) Thyroxine, Free 1.21 ng/dL (0.93-1.70) [facility] Work Phone: [phone] Comment on above: Note: Responsible Ob traffic observer: CCEV AUTOFILE (3002) Total Insulin 46 uIU/mL High (3-19) [facility] Work Phone: Comment on above: Note: (NOTE)INTERPRE TIVE INFORMATION: Insulin, Free and TotalThis test reacts on a nearly equimolar basis with the analogsinsulin aspart, insulin glargine, and insulin lispro. Insulindetemir exhibits approximately 50 percent cross-reactivity. Testreactivity with insulin glulisine is negligible (<3 percent). Toconvert to pmol/L, multiply uIU/mL by 6.0. Reference intervalsestablished for fasting specimens.Performed by [employer],[address] [place] [id number] [employer], [place] Xiong MD, Lab. DirectorResponsible Observer: LAB KIERAN ([id number]) Triglyceride,Fasting 135 mg/dL (<150) [facility] Work Phone: [phone] Comment on above: Note: Triglyceride G uidelines:<150 [id number] High>499 Very highBased on AHA Guidelines for fasting triglyceride, February 2012.Responsible Observer: CCEV AUTOFILE (3002) Triiodothyronine T3 150 ng/dL (80-200) [facility] Work Phone: Comment on above: Note: Responsible Ob traffic observer: CEEV AUTOFILE (3003) WBC Morphology NOT REPORTED [facility] Work Phone: T3on 07-06-2019 T3, Total 150 ng/dL 80 - 200 ng/dL [employer] Phone: T4, Freeon 07-06-2019 Thyroxine, Free 1.21 ng/dL 0.93 - 1.7 ng/dL [employer] Phone: TSH without Reflexon 020 TSH Qn 4.15 m[IU]/L [employer] Work Phone: US NON OB TRANSVAGINALon Satisfactory IUD position. RECOMMENDATIONS: No follow-up imaging is recommended. Reference: US BPRs based on Radiology 2010 Jan;256(3):943-54; CT/MR BPRs based on J Am Joanne Radiol 2013;10:675-681. [place], [place] EXAMINATION: PELVIC ULTRASOUND 02/02/2019 TECHNIQUE: Transvaginal [...] Free Fluid: No evidence of free fluid. [place], [place] Jean Marie, pn Incoming Radiant Results From [facility] - 02/02/2019 8:44 AM EDT EXAMINATION: PELVIC [...] based on J Am Joanne Radiol 2013;10:675-681. [facility] ROBBY PER[facility] 08-21-2018 CNOV Office Visit (WALKBR ) ----- ESTEFANIA HERRERA ([id number]) 1995 F Date Time Provider Department 08/21/18 12:00 PM MIGUEL LOVELACE (DIANELYS) WALKBR During your visit today, we recorded the following information about you: Temperature Pulse Respiration Blood pressure 97.6 degrees 99/minute 16/minute 136/81 Weight 109.8 kg Miguel Lovelace APRN.CNP 08/21/2018 12:46 PM Signed Subjective The history is provided by the patient. No switchboard operator was used. Cough This is a new [...] is a safe and effective decongestant 3. Baxter Nasal [place] may offer relief of nasal and head [...] help open respiratory and sinus passages. - Baxter Nasal [place] may offer relief of nasal and head [...] get worse. Thank you for coming to [facility] today. I appreciate your confidence in choosing the [facility] for your medical care. Miguel Lovelace APRN.[facility] [address] [facility] [address] Referring Provider: SELF [200] Allergies As [...] is a safe and effective decongestant 3. Baxter Nasal [place] may offer relief of nasal and head [...] help open respiratory and sinus passages. - Baxter Nasal [place] may offer relief of nasal and head [...] get worse. Thank you for coming to [facility] today. I appreciate your confidence in choosing the [facility] for your medical care. Miguel Lovelace APRN.YARDAGE TUFTING MACHINE OPERATOR [facility] [address] [facility] [phone] Prescriptions ordered this encounter Disp Refills Start [...] Status:Closed by MIGUEL LOVELACE CNP on 08/21/18 [facility] PROGRESSon 08-21-2018 Protein mass conc HNO ID: [id number] Author: Miguel Hall) Radu Service: ? Author Type: Nurse Practitioner Type: Progress Notes Filed: 08/21/2018 12:46 PM Note Text: Subjective The history is provided by the patient. No switchboard operator was used. Cough This is a new [...] 3-5 days or get worse Miguel Lovelace APRN.YARDAGE TUFTING MACHINE OPERATOR [facility] CNCOon 12-22-2017 CNCO Letter Text Erica Velazquez MD [facility] [address] [place] [address] Estefania Herrera December 22, 2017 Estefania Herrera [address] [facility] [address] Dear Ms. Herrera, It was noted that you did not keep your scheduled appointment on 12-22-17. It is important to contact the office in advance if you are unable to keep your appointment so that it is available for other patients. Your medical care is important to us. Please call our office to reschedule an appointment. Sincerely, Erica Velazquez MD [facility] Consult Reporton 01-05-2017 Consult Report Patient: JITENDRA HERRERA Age: 21 years Sex: Female : 1995 Associated Diagnoses: None Author: KAREN ACKERMAN DPM, RES [facility] Podiatry DepartmentReason for Consult: Active Problems [...] discussed with attending physician, Dr. Jaime Ackerman [phone] ically Signed by: KAREN ACKERMAN DPM, RES on 01/04/2017 13:59 EDTElectronically Co-Signed by: Cecelia ACKERMAN DPM, RES 01/04/2017 14:37 EDTElectronically Co-Signed by: Rene REYES DPM 01/05/2017 18:28 EDT Normal [facility] APTTon 01-04-2017 aPTT 29.9 Second(s) Normal [facility] Comment on above: Result Comment: VERI FIED by Discern Expert. Performed By: #### 1 49690, 6079385, 470308, 295683, 155556, 198959 ####[facility] [address] [place] [address] Medical Director: David Doe MD aPTT 25.9 Second(s) Normal 25.0-36.0 [facility] Comment on above: Performed By: #### 1 46390, 2856103, 681284, 102981, 559338, 641322 ####[facility] [address]cmobxmh36928 [place] [address] Medical Director: David Doe MD AUTO DIFFon 01-04-2017 Basophils Auto #/vol (Bld) 0.04 x1000 Normal 0.00-0.20 [facility] Comment on above: Performed By: #### 1 46633, 0196510, 800677, 511291, 453025, 427971 ####[facility] Qcp[address]mxnd109[address] [place] [address]30 Medical Director: David Doe MD Basos % 0.5 % Normal [facility] Comment on above: Performed By: #### 1 30026, 9225494, 156108, 472585, 256611, 163588 ####[facility] Tsspkvkl00998 [place] [address] Medical Director: David Doe MD Eos Count 0.10 x1000 Normal 0.00-0.50 [facility] Comment on above: Performed By: #### 1 70852, 9331295, 267796, 652440, 223163, 052930 ####[facility] Xojolgbl59129 [place] [address] Medical Director: David Doe MD Eosinophils/100 leukocytes 1.0 % Normal [facility] Comment on above: Performed By: #### 1 39784, 4429164, 920426, 069789, 855908, 647067 ####[facility] Ijajnobc00679 [place], [place] [id number]) [phone] Director: David Doe MD Lymphocytes 2.84 x1000 Normal 1.20-4.80 [facility] Comment on above: Performed By: #### 1 35892, 1993442, 195415, 152315, 211148, 174327 ####[facility] Ukserwtc94703 [place] [address] Medical Director: David Doe MD Lymphocytes/100 leukocytes 29.4 % Normal [facility] Comment on above: Performed By: #### 1 17257, 3140727, 692315, 037495, 976140, 934665 ####[facility] Iaegguoe45923 [place] [address] Medical Director: David Doe MD Waldo Count 0.68 x1000 Normal 0.10-1.00 [facility] Comment on above: Performed By: #### 1 42961, 3435298, 456723, 459930, 340936, 473357 ####[facility] Bcnxizff96277 [place] [address] Medical Director: David Doe MD Monocytes/100 leukocytes 7.0 % Normal [facility] Comment on above: Performed By: #### 1 45031, 9082318, 872234, 474200, 122164, 685022 ####[facility] Kaqqdwrs03159 [place] [address] Medical Director: David Doe MD Neutrophils 5.98 x1000 Normal 1.40-8.80 [facility] Comment on above: Performed By: #### 1 91702, 0703596, 746734, 664974, 534263, 228309 ####[facility] Ephtbmbk98021 [place] [address] Medical Director: David Doe MD Neutrophils/100 WBC Auto (Bld) 62.0 % Normal [facility] Comment on above: Performed By: #### 1 04535, 3664041, 595386, 913242, 613873, 913326 ####[facility] Xbrveavz44899 [place] [address] Medical Director: David Doe MD COMPMETAon 01-04-2017 Globulin 4.0 g/dL Normal [facility] Comment on above: Performed By: #### 1 31641, 0094265, 680635, 201003, 992412, 102266 ####[facility] Inuowifr87385 [place] [address] Medical Director: David Doe MD Osmolality 277 mOsm/kg Normal 275-295 [facility] Comment on above: Performed By: #### 1 81338, 1854164, 251043, 037573, 438825, 571939 ####[facility] Pbykgbfy23596 [place], [place] [address]) [phone] Director: David Doe MD eGFR (non-black) mL/min/{1.73_m2} Normal So [facility] Comment on above: Result Comment: Afri can Vietnamese GFR Calc Performed By: #### 1 57099, 5111103, 013310, 574849, 644813, 178904 ####[facility] [address]orewan00819 [place] [address] Medical Director: David Doe MD Result Comment: Non GFR CalcMedical judgement is necessary to interpret GFR. The calculated GFR may not accurately reflect renal status in patients >70 years, women, acutely ill hospitalized patients and patients with acute renal failure or known renal disease.Note:Creatinine clearance (not GFR) should be used for drug dosing. Albumin/Globulin Ratio 0.8 {ratio} Normal S [facility] Comment on above: Performed By: #### 1 80177, 5765609, 930476, 383344, 961335, 235414 ####[facility] [address]emu828[address] [place] [address] Medical Director: David Doe MD BUN/Creatinine Ratio 17.6 mg/mg Normal [facility] Comment on above: Performed By: #### 1 42740, 0419085, 154918, 583713, 866556, 406191 ####[facility] [address]zng[address]set82812 [place] [address] Medical Director: David Doe MD Alk Phos 61 unit/L Normal 45-117 [facility] Comment on above: Performed By: #### 1 61829, 8395676, 033073, 928267, 378288, 937820 ####[facility] Mcgbcbwa58299 [place] [address] Medical Director: David Doe MD Bilirubin (total) 0.41 mg/dL Normal 0.20-1.00 [facility] Comment on above: Performed By: #### 1 63150, 1981417, 942131, 617611, 008247, 970717 ####[facility] Cwqkdpmv71797 [place] [address] Medical Director: David Doe MD Protein 7.4 g/dL Normal 6.0-8.5 [facility] Comment on above: Performed By: #### 1 69863, 2024429, 751989, 451759, 754339, 555238 ####[facility] [address]qkjgd14220 [place] [address] Medical Director: David Doe MD GPT 16 unit/L Normal 13-56 [facility] Comment on above: Result Comment: Mariposa puncture should occur prior to sulfasalazine and/or sulfapyridine administration due to the potential for falsely depressed results.Baseline assay values before administration of sulfasalazine and sulfapyridine therapy would not be affected. Performed By: #### 1 82257, 3333607, 473055, 390514, 817321, 030703 ####[facility] [address]hnf39[address] [place] [address] Medical Director: David Doe MD Creatinine 0.7 mg/dL Normal 0.6-1.0 [facility] Comment on above: Performed By: #### 1 43800, 6130664, 914170, 520829, 846145, 733632 ####[facility] Jbwsehiq68058 [place] [address] Medical Director: David Doe MD GOT 14 unit/L Low 15-37 [facility] Comment on above: Result Comment: Mariposa puncture should occur prior to sulfasalazine and/or sulfapyridine administration due to the potential for falsely depressed results.Baseline assay values before administration of sulfasalazine and sulfapyridine therapy would not be affected. Performed By: #### 1 06946, 7268826, 964722, 654877, 516389, 007617 ####[facility] Xqnxoybs16866 [place] [address] Medical Director: David Doe MD Urea nitrogen 13 mg/dL Normal 10-20 [facility] Comment on above: Performed By: #### 1 23854, 4498404, 757487, 630339, 705522, 769668 ####[facility] [address]rlsqsrn34492 [place] [address] Medical Director: David Doe MD Glucose mass conc 86 mg/dL Normal 72-100 [facility] Comment on above: Result Comment: Mariposa puncture should occur prior to sulfasalazine administration due to the potential for falsely depressed results. Venipuncture should occur prior to sulfapyridine administration due to the potential falsely elevated results.Baseline assay values before administration of sulfasalazine and sulfapyridine therapy would not be affected. Performed By: #### 1 04052, 7628745, 548690, 546579, 314407, 022021 ####[facility] Isteease15573 [place] [address] Medical Director: David Doe MD Albumin 3.4 g/dL Normal 3.4-5.0 [facility] Comment on above: Performed By: #### 1 38051, 5531619, 678151, 140534, 624145, 632465 ####[facility] [address] [place] [address] Medical Director: David Doe MD CO2 19.0 mmol/L Low 21.0-32.0 [facility] Comment on above: Performed By: #### 1 11862, 1593320, 327601, 219089, 971200, 710848 ####[facility] [address]xs[address]b89241 [place] [address] Medical Director: David Doe MD Calcium 9.0 mg/dL Normal 8.5-10.5 [facility] Comment on above: Performed By: #### 1 57775, 0418294, 189963, 843034, 920413, 501023 ####[facility] Obvsxsnu09126 [place] [address] Medical Director: David Doe MD Potassium molar conc 3.7 mmol/L Normal 3.5-5.1 [facility] Comment on above: Performed By: #### 1 57053, 8254452, 163208, 449452, 665006, 967429 ####[facility] [address] [place] [address] Medical Director: David Doe MD Sodium 139 mmol/L Normal 135-145 [facility] Comment on above: Performed By: #### 1 81456, 0423281, 273510, 028761, 311211, 301817 ####[facility] Ouwoossd03293 [place] [address] Medical Director: David Doe MD Chloride 108 mmol/L Normal 100-109 [facility] Comment on above: Performed By: #### 1 37143, 9668410, 273795, 788513, 767693, 648413 ####[facility] [address]zqxtr38[address] [place] [address] Medical Director: David Doe MD CT LOWER [...] apparent fracture or dislocation involving the rightfoot.Technologist: SANDRALDictated By: Damir SMITH MD By: Damir SMITH MD Out: 01/04/17 12:59:57 Normal [facility] ED Physician Reporton 2016 ED Physician Report [...] Plan Diagnosis Crush injury of right foot (INE50-VP S97.81XA, Working, Medical) Plan Condition: Stable. Disposition: ED Discharge to Home was placed.(01/04/2017 13:39:31 EDT, Constant Order). Prescriptions: Launch prescriptions Pharmacy:Percocet 5/325 ([id number]) oral tablet (Prescribe): 1 tabs, ORAL, [id number], PRN: for pain, 24 tabs, 0 Refill(s)doxycycline hyclate 100 mg oral tablet (Prescribe): 100 mg = 1 tabs, ORAL, BID, for 10 days, 20 tabs, 0 Refill(s). Patient was given the following educational materials: Cryotherapy, Zchf-cp-Xmgo, Compartment Syndrome of the Foot, Compartment Syndrome of the Foot, Cryotherapy, Lyaj-tr-Lycz. Follow up with: 837 FAMILY PHYSICIAN Within [...] by: Selene GALVAN MD 01/04/2017 14:19 Normal [facility] ED Progress Noteon 7 ED Progress Note [...] medicatedsig other at bedsidepodiatry coming to see [id number] ASSUMED CARE OF PT, REPORT RECEIVED FROM [...] a little dizzy after trying crutches. Normal [facility] HCGon 01-04-2017 HCG, Qual <1.0 Normal [facility] Comment on above: Result Comment: 0 - 3 Negative3 - 50 Inconclusive>50 Positive Performed By: #### 1 84123, 7660779, 489797, 410942, 453993, 676401 ####[facility] [address]mehblio050[address] [place] [address] Medical Director: David Doe MD HEMOon 01-04-2017 DIFF? No Normal [facility] Comment on above: Performed By: #### 1 65189, 0573937, 658981, 428302, 905089, 613082 ####[facility] [address]okpufol13987 [place] [address] Medical Director: David Doe MD Erythrocyte distribution width Auto Ratio (RBC) 13.3 % Normal 11.5-14.5 [facility] Comment on above: Performed By: #### 1 87769, 3767431, 871685, 914926, 955116, 954632 ####[facility] Ljuqzlog22462 [place], [place] [address]) [phone] Director: David Doe MD Erythrocytes (RBC) 4.80 x10 Normal 4.20-5.40 [facility] Comment on above: Result Comment: Note : RBC morphology is normal unless otherwise stated. Evaluation performed only if differential is requested. Performed By: #### 1 86034, 8955512, 883443, 531531, 551740, 931803 ####[facility] Demmotjc41369 [place], [place] [address]) [phone] Director: David Doe MD Hematocrit (HCT) 39.0 % Normal 36.0-46.0 [facility] Comment on above: Performed By: #### 1 49999, 2247952, 380027, 662575, 051063, 140626 ####[facility] Otopdbbe67746 [place], [place] [address]) [phone] Director: David Doe MD Hemoglobin mass conc (Bld) 13.1 g/dL Normal 12.0-16.0 [facility] Comment on above: Performed By: #### 1 81383, 7880474, 349046, 257820, 617040, 909917 ####[facility] Qpbasrcz81328 [place], [place] [address]) [phone] Director: David Doe MD MCH 27.3 pg Normal 27.0-34.0 [facility] Comment on above: Performed By: #### 1 06496, 6162410, 745548, 815917, 529841, 174315 ####[facility] Miysaybp58148 [place], [place] [address]) [phone] Director: David Doe MD MCHC mass conc (RBC) 33.6 g/dL Normal 32.0-37.0 [facility] Comment on above: Performed By: #### 1 17117, 5082366, 444108, 187683, 317397, 479407 ####[facility] [address]q59[address] [place] [address] Medical Director: David Doe MD MCV 81.3 fL Normal 80.0-100.0 [facility] Comment on above: Performed By: #### 1 29989, 7766685, 277986, 952012, 571506, 590698 ####[facility] [address]viyfc39219 [place] [address] Medical Director: David Doe MD Nucleated RBC% 0 /100WC Normal [facility] Comment on above: Performed By: #### 1 16015, 8379373, 335582, 091179, 982023, 810951 ####[facility] Yeziqydm85677 [place] [address] Medical Director: David Doe MD Platelet mean volume (PMV) 9.4 fL Normal 7.4-10.4 [facility] Comment on above: Performed By: #### 1 32393, 1087301, 093692, 867922, 368316, 573342 ####[facility] [address]ickcads[address] [place] [address] Medical Director: David Doe MD Platelets 238 x1000 Normal 150-450 [facility] Comment on above: Performed By: #### 1 12181, 9053009, 046283, 921657, 254646, 626919 ####[facility] Ccgpnszo14621 [place] [address] Medical Director: David Doe MD WBC (Leukocytes) 9.6 10*3/uL Normal [facility] Comment on above: Performed By: #### 1 04962, 8017907, 025844, 121268, 754426, 071907 ####[facility] Qqewugvx33019 [place] [address] Medical Director: David Doe MD WBC (Leukocytes) 9.6 x10 Normal 4.5-11.0 [facility] Comment on above: Performed By: #### 1 63030, 7150364, 252657, 472176, 644764, 409717 ####[facility] Npypwcgx18130 [place], [place] [address]) [phone] Director: David Doe MD PT INRon 01-04-2017 Protime Median 11.1 Second(s) Normal [facility] Comment on above: Result Comment: VERI FIED by Discern Expert. Performed By: #### 1 86546, 7724609, 121575, 389058, 551143, 156656 ####[facility] Blvnnbkp45354 [place], [place] [address]) [phone] Director: David Doe MD INR Coag RelTime (PPP) 1.0 {INR} Normal So [facility] Comment on above: Result Comment: Norm al reference range for INR on patients not on anticoagulant therapy: 0.9-1.1. General therapeutic range for patients on anticoagulant therapy: 2.0-3.5. Performed By: #### 1 99755, 6121413, 991657, 054879, 919005, 535830 ####[facility] Ucddqkfi37715 [place], [place] [address]) [phone] Director: Daivd Doe MD Protime Patient 11.3 Second(s) Normal 9.8-12.7 [facility] Comment on above: Performed By: #### 1 52902, 6527232, 423679, 971445, 398021, 775190 ####[facility] M[address]fwfrj10460 [place], [place] [address]) [phone] Director: David Doe MD XR FOOT RIGHT [...] Alberto AGUILAR MD Out: 01/04/17 11:49:07 Normal [facility] Vital Signs Date Time Vital Sign Value Performing Clinician Facility 07-15-2023 11:50-0500 Body mass index (BMI) [Ratio] 36.65 kg/m2 [facility] Work Phone: [facility] 07-15-2023 11:50-0500 Body weight 106.14 kg [facility] Work Phone: [facility] 12-04-2021 10:03-0400 Body height 173.35 cm [facility] 12-04-2021 10:03-0400 Body mass index (BMI) [Ratio] 35.22 kg/m2 [facility] 12-04-2021 10:03-0400 Body surface area Derived from formula 2.26 m2 [facility] 12-04-2021 10:03-0400 Body weight 105.83 kg [facility] 12-04-2021 10:03-0400 Diastolic blood pressure 68 mm[Hg] [facility] 12-04-2021 10:03-0400 Heart rate 68 /min [facility] 12-04-2021 10:03-0400 Systolic blood pressure 116 mm[Hg] Shona Lucio [facility] 10-15-2020 01:15-0400 Diastolic blood pressure 71 mm[Hg] Donny Andes DO Work Phone: [employer] Work Phone: 10-15-2020 01:15-0400 SaO2% (BldA) [Mass fraction] 94 % Donny Andes DO Work Phone: [employer] Work Phone: 10-15-2020 01:15-0400 Systolic blood pressure 117 mm[Hg] Donny Andes DO Work Phone: [employer] Work Phone: 10-14-2020 23:18-0400 Body temperature 97.59 [degF] Donny Andes DO Work Phone: [employer] Work Phone: 10-14-2020 23:18-0400 Heart rate 98 /min Donny Andes DO Work Phone: [employer] Work Phone: 10-14-2020 23:18-0400 Respiratory rate 18 /min Donny Andes DO Work Phone: [employer] Work Phone: 09-23-2020 08:31-0400 Body height 172.72 cm 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 [employer] Work Phone: [facility] Work Phone: 09-23-2020 08:31-0400 Body mass index (BMI) [Ratio] 40.9 kg/m2 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 [employer] Work Phone: [facility] Work Phone: 09-23-2020 08:31-0400 Body surface area Derived from formula 2.32 m2 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 [employer] Work Phone: [facility] Work Phone: 09-23-2020 08:31-0400 Body temperature 964 [degF] 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 CNP Work Phone: [facility] Work Phone: 09-23-2020 08:31-0400 Body weight 122.02 kg 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 CNP Work Phone: [facility] Work Phone: 09-23-2020 08:31-0400 Diastolic blood pressure 80 mm[Hg] 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 CNP Work Phone: [facility] Work Phone: 09-23-2020 08:31-0400 Heart rate 80 /min 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 CNP Work Phone: [facility] Work Phone: 09-23-2020 08:31-0400 Respiratory rate 18 /min 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 CNP Work Phone: [facility] Work Phone: 09-23-2020 08:31-0400 SaO2% (BldA) [Mass fraction] 98 % 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 CNP Work Phone: [facility] Work Phone: 09-23-2020 08:31-0400 Systolic blood pressure 126 mm[Hg] 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 CNP Work Phone: [facility] Work Phone: 04-08-2020 16:25-0500 Respiratory Rate 16 /min 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 [employer] [facility] [place] 04-08-2020 16:20-0500 Pulse (Heart Rate) 86 /min [facility] [place] [place] 04-08-2020 16:20-0500 Pulse Oximetry 98 % 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 [employer] [facility] , [place] 04-08-2020 16:00-0500 BP Diastolic 66 mm[Hg] [facility] , [place] 04-08-2020 16:00-0500 BP Systolic 121 mm[Hg] [facility] , [place] 04-08-2020 13:23-0500 Body Temperature 98.4 [degF] [facility] [place] 03-19-2020 19:09-0400 BMI (Body Mass Index) 37.3 kg/m2 [facility] Work Phone: 03-19-2020 19:09-0400 Body weight 111.13 kg [facility] Work Phone: 03-19-2020 19:09-0400 BSA (Body Surface Area) 2.23 m2 [facility] Work Phone: 03-19-2020 19:09-0400 Height 172.72 cm [facility] Work Phone: 03-05-2020 08:30-0400 BMI (Body Mass Index) 37.3 kg/m2 [facility] Work Phone: 03-05-2020 08:30-0400 Body Temperature 95.4 [degF] [facility] Work Phone: 03-05-2020 08:30-0400 Body weight 111.13 kg [facility] Work Phone: 03-05-2020 08:30-0400 BP Diastolic 80 mm[Hg] [facility] Work Phone: 03-05-2020 08:30-0400 BP Systolic 120 mm[Hg] [facility] Work Phone: 03-05-2020 08:30-0400 BSA (Body Surface Area) 2.23 m2 [facility] Work Phone: 03-05-2020 08:30-0400 Height 172.72 cm [facility] Work Phone: 03-05-2020 08:30-0400 Pulse (Heart Rate) 74 /min [facility] Work Phone: 03-05-2020 08:30-0400 Pulse Oximetry 99 % [facility] Work Phone: 03-05-2020 08:30-0400 Respiratory Rate 18 /min [facility] Work Phone: 03-05-2020 08:30-0400 SaO2% (BldA) [Mass fraction] 99 % [facility] Work Phone: [facility] Work Phone: 12-05-2019 08:37-0400 BMI (Body Mass Index) 35.4 kg/m2 [facility] Work Phone: 12-05-2019 08:37-0400 Body Temperature 98.8 [degF] [facility] Work Phone: 12-05-2019 08:37-0400 Body weight 105.69 kg [facility] Work Phone: 12-05-2019 08:37-0400 BP Diastolic 72 mm[Hg] [facility] Work Phone: 12-05-2019 08:37-0400 BP Systolic 116 mm[Hg] [facility] Work Phone: 12-05-2019 08:37-0400 BSA (Body Surface Area) 2.18 m2 [facility] Work Phone: 12-05-2019 08:37-0400 Flow Rate 0 L/min [facility] Work Phone: 12-05-2019 08:37-0400 Height 172.72 cm [facility] Work Phone: 12-05-2019 08:37-0400 Inhaled Oxygen Concentration 21 % [facility] Work Phone: 12-05-2019 08:37-0400 Pulse (Heart Rate) 81 /min [facility] Work Phone: 12-05-2019 08:37-0400 Pulse Oximetry 98 % [facility] Work Phone: 12-05-2019 08:37-0400 Respiratory Rate 18 /min [facility] Work Phone: 12-05-2019 08:37-0400 SaO2% (BldA) [Mass fraction] 98 % [facility] Work Phone: [facility] Work Phone: 11-06-2019 09:02-0400 BMI (Body Mass Index) 36.2 kg/m2 [facility] Work Phone: 11-06-2019 09:02-0400 Body Temperature 95.8 [degF] [facility] Work Phone: 11-06-2019 09:02-0400 Body weight 107.96 kg [facility] Work Phone: 11-06-2019 09:02-0400 BP Diastolic 80 mm[Hg] [facility] Work Phone: 11-06-2019 09:02-0400 BP Systolic 110 mm[Hg] [facility] Work Phone: 11-06-2019 09:02-0400 BSA (Body Surface Area) 2.2 m2 [facility] Work Phone: 11-06-2019 09:02-0400 Height 172.72 cm [facility] Work Phone: 11-06-2019 09:02-0400 Pulse (Heart Rate) 94 /min [facility] Work Phone: 11-06-2019 09:02-0400 Pulse Oximetry 98 % [facility] Work Phone: 11-06-2019 09:02-0400 Respiratory Rate 18 /min [facility] Work Phone: 11-06-2019 09:02-0400 SaO2% (BldA) [Mass fraction] 98 % [facility] Work Phone: [facility] Work Phone: 10-12-2019 09:53-0400 BMI (Body Mass Index) 38.2 kg/m2 [facility] Work Phone: 10-12-2019 09:53-0400 Body Temperature 98.7 [degF] [facility] Work Phone: 10-12-2019 09:53-0400 Body weight 113.85 kg [facility] Work Phone: 10-12-2019 09:53-0400 BP Diastolic 82 mm[Hg] [facility] Work Phone: 10-12-2019 09:53-0400 BP Systolic 122 mm[Hg] [facility] Work Phone: 10-12-2019 09:53-0400 BSA (Body Surface Area) 2.25 m2 [facility] Work Phone: 10-12-2019 09:53-0400 Flow Rate 0 L/min [facility] Work Phone: 10-12-2019 09:53-0400 Height 172.72 cm [facility] Work Phone: 10-12-2019 09:53-0400 Inhaled Oxygen Concentration 21 % [facility] Work Phone: 10-12-2019 09:53-0400 Pulse (Heart Rate) 97 /min [facility] Work Phone: 10-12-2019 09:53-0400 Pulse Oximetry 98 % [facility] Work Phone: 10-12-2019 09:53-0400 Respiratory Rate 18 /min [facility] Work Phone: 10-12-2019 09:53-0400 SaO2% (BldA) [Mass fraction] 98 % [facility] Work Phone: [facility] Work Phone: 09-14-2019 08:35-0400 BMI (Body Mass Index) 37.7 kg/m2 [facility] Work Phone: 09-14-2019 08:35-0400 Body Temperature 96.6 [degF] [facility] Work Phone: 09-14-2019 08:35-0400 Body weight 112.49 kg [facility] Work Phone: 09-14-2019 08:35-0400 BP Diastolic 80 mm[Hg] [facility] Work Phone: 09-14-2019 08:35-0400 BP Systolic 130 mm[Hg] [facility] Work Phone: 09-14-2019 08:35-0400 BSA (Body Surface Area) 2.24 m2 [facility] Work Phone: 09-14-2019 08:35-0400 Height 172.72 cm [facility] Work Phone: 09-14-2019 08:35-0400 Pulse (Heart Rate) 81 /min [facility] Work Phone: 09-14-2019 08:35-0400 Pulse Oximetry 98 % [facility] Work Phone: 09-14-2019 08:35-0400 Respiratory Rate 18 /min [facility] Work Phone: 09-05-2019 10:26-0400 BMI (Body Mass Index) 37.3 kg/m2 [facility] Work Phone: 09-05-2019 10:26-0400 Body weight 111.13 kg [facility] Work Phone: 09-05-2019 10:26-0400 BSA (Body Surface Area) 2.23 m2 [facility] Work Phone: 09-05-2019 10:26-0400 Height 172.72 cm [facility] Work Phone: 08-17-2019 08:29-0400 BMI (Body Mass Index) 37.3 kg/m2 [facility] Work Phone: 08-17-2019 08:29-0400 Body Temperature 97.9 [degF] [facility] Work Phone: 08-17-2019 08:29-0400 Body weight 111.13 kg [facility] Work Phone: 08-17-2019 08:29-0400 BP Diastolic 80 mm[Hg] [facility] Work Phone: 08-17-2019 08:29-0400 BP Systolic 120 mm[Hg] [facility] Work Phone: 08-17-2019 08:29-0400 BSA (Body Surface Area) 2.23 m2 [facility] Work Phone: 08-17-2019 08:29-0400 Height 172.72 cm [facility] Work Phone: 08-17-2019 08:29-0400 Pulse (Heart Rate) 68 /min [facility] Work Phone: 08-17-2019 08:29-0400 Pulse Oximetry 98 % [facility] Work Phone: 08-17-2019 08:29-0400 Respiratory Rate 18 /min [facility] Work Phone: 07-20-2019 08:36-0500 BMI (Body Mass Index) 39 kg/m2 [facility] Work Phone: 07-20-2019 08:36-0500 Body Temperature 98.4 [degF] [facility] Work Phone: 07-20-2019 08:36-0500 Body weight 116.39 kg [facility] Work Phone: 07-20-2019 08:36-0500 BP Diastolic 80 mm[Hg] [facility] Work Phone: 07-20-2019 08:36-0500 BP Systolic 120 mm[Hg] [facility] Work Phone: 07-20-2019 08:36-0500 BSA (Body Surface Area) 2.27 m2 [facility] Work Phone: 07-20-2019 08:36-0500 Height 172.72 cm [facility] Work Phone: 07-20-2019 08:36-0500 Pulse (Heart Rate) 87 /min [facility] Work Phone: 07-20-2019 08:36-0500 Pulse Oximetry 97 % [facility] Work Phone: 07-20-2019 08:36-0500 Respiratory Rate 18 /min [facility] Work Phone: 07-06-2019 08:43-0500 BMI (Body Mass Index) 39.7 kg/m2 [facility] Work Phone: 07-06-2019 08:43-0500 Body Temperature 97.3 [degF] [facility] Work Phone: 07-06-2019 08:43-0500 Body weight 118.39 kg [facility] Work Phone: 07-06-2019 08:43-0500 BP Diastolic 82 mm[Hg] [facility] Work Phone: 07-06-2019 08:43-0500 BP Systolic 122 mm[Hg] [facility] Work Phone: 07-06-2019 08:43-0500 BSA (Body Surface Area) 2.29 m2 [facility] Work Phone: 07-06-2019 08:43-0500 Height 172.72 cm [facility] Work Phone: 07-06-2019 08:43-0500 Pulse (Heart Rate) 78 /min [facility] Work Phone: 07-06-2019 08:43-0500 Pulse Oximetry 98 % [facility] Work Phone: 07-06-2019 08:43-0500 Respiratory Rate 18 /min [facility] Work Phone: Encounters Encounter Date Encounter Type Care Provider Facility Start: 12-15-2023 End: 12-15-2023 ambulatory ADITYA BILLY Not Available Start: 12-06-2023 End: 12-06-2023 ambulatory ADITYA BILLY Not Available Start: 11-18-2023 End: 11-18-2023 ambulatory ADITYA BILLY Not Available Start: 10-28-2023 End: 10-28-2023 ambulatory ADITYA BILLY Not Available Start: 10-14-2023 End: 10-14-2023 ambulatory LATASHA CARLTON Not Available Start: 10-07-2023 End: 10-07-2023 ambulatory ADITYA BILLY Not Available Start: 09-16-2023 End: 09-16-2023 ambulatory ADITYA BILLY Not Available Start: 08-19-2023 End: 08-19-2023 ambulatory LATASHA CARLTON Not Available Start: 07-15-2023 End: 07-15-2023 ambulatory ADITYA BILLY Not Available Start: 07-15-2023 End: 07-15-2023 flow sheet Aditya Billy DO Work Phone: [facility] Comment on above: Second trimester pre gnancy Start: 06-11-2023 End: 06-11-2023 ambulatory ADITYA BILLY Not Available Start: 05-12-2023 End: 05-13-2023 ambulatory MIGUEL [facility] Start: 05-07-2023 End: 05-08-2023 ambulatory MIGUEL [facility] Start: 05-05-2023 End: 05-06-2023 ambulatory [facility] Start: 04-14-2023 End: 04-14-2023 ambulatory ADITYA BILLY Not Available Start: 03-24-2023 End: 03-27-2023 ambulatory ADITYA ANGELICA BILLY Tereza [facility] Start: 01-20-2023 End: 01-20-2023 ambulatory [facility] Start: 01-01-2023 End: 01-02-2023 ambulatory MIGUEL Foy [facility] Start: 01-01-2023 Encounter for gynecological examination (general) (routine) without abnormal findings [facility] Start: 01-01-2023 End: 01-01-2023 Patient encounter procedure Miguel Stewart CNP Work Phone: [facility] Start: 01-01-2023 End: 01-01-2023 Subsequent hospital [...] patient visit Donny Hatfield DO Work Phone: [facility] ED Comment on above: Nausea vomiting and diarrhea (Primary Dx); Generalized abdominal pain Start: 09-23-2020 End: 09-24-2020 [facility] Start: 09-23-2020 End: 09-23-2020 Subsequent hospital visit by physician Miguel Stewart CNP Work Phone: [facility] Start: 09-23-2020 End: 09-23-2020 General Jammie RODAS Work Phone: [facility] Work Phone: Start: 09-23-2020 End: 09-23-2020 Adult health examination 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 CNP Work Phone: [facility] Work Phone: Start: 09-23-2020 End: 09-23-2020 FQHC visit, estab pt 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 CNP Work Phone: [facility] Work Phone: Start: 04-08-2020 End: 04-08-2020 Emergency department patient visit 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 [facility] ED Comment on above: COVID-19 (Primary Dx ); Fatty liver Start: 03-19-2020 End: 03-19-2020 Telemedicine consultation with patient 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 Work Phone: [facility] Work Phone: Start: 03-05-2020 End: 03-05-2020 Established patient 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 Work Phone: [facility] Work Phone: [...] 08-17-2019 Established patient 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 Work Phone: [facility] Work Phone: Start: 07-20-2019 End: 07-20-2019 Established patient 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 Work Phone: [facility] Work Phone: Start: 07-06-2019 End: 07-06-2019 Subsequent hospital visit by physician Jackson [facility] Start: 07-06-2019 End: 07-06-2019 Established patient Anh Virk Work Phone: [facility] Work Phone: Start: 07-06-2019 End: 07-06-2019 New patient Allyson Floyd Work Phone: [facility] Work Phone: Start: 02-02-2019 End: 02-04-2019 Subsequent hospital visit by physician [facility] Ultrasound Comment on above: Encounter for intrau terine device placement Start: 08-21-2018 End: 08-23-2018 Patient encounter procedure [facility] Start: 01-04-2017 End: 01-04-2017 Emergency department patient visit [facility] Facility:[id number] Procedures Date Procedure Procedure Detail Performing Clinician Start: 07-15-2023 Urnls dip stick/tabl et rgnt non-auto w/o micrscp Aditya Cervantes DO Work Phone: Start: 12-16-2021 Assay of blood/uric acid Dedrick JAQUEZC Work Phone: Start: 12-16-2021 C-reactive protein Robel KULKARNI-C Work Phone: Start: 12-04-2021 Nerve conduction [facility] dies 9-10 studies Shona Lucio Start: 10-02-2021 Microscopic observat ion [Identifier] in Cervix by Cyto stain 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: Start: 10-15-2020 Urinalysis microscop [...] pressure < 80 mm hg 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: Start: 09-23-2020 Most recent systolic blood pressure <130 mm hg 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: Start: 09-23-2020 Pt-focused hlth risk assmt score doc stnd instrm 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 CNP Work Phone: Start: 09-23-2020 Antibody hiv-1&hiv-2 single result 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 CNP Work Phone: Start: 09-23-2020 Comprehensive metabo lic panel 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 - [facility] Work Phone: Start: 04-08-2020 Ct thorax w/contrast material [facility] Work Phone: Start: 04-08-2020 [facility]-19 [facility] Work [facility]: Start: 04-08-2020 Urine test visual color cmprsn meths [facility] Work Phone: Start: 04-08-2020 Assay of troponin quantitative [employer] Work Phone: Start: 04-08-2020 Blood count complete automated Ninoska Lopes Work Phone: Start: 04-08-2020 Comprehensive metabo lic [...] in Cervix by Cyto stain 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: NEGATED: Highlighted row has not occurred!Start: 11-06-2019 currently nursing 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 NEGATED: Highlighted row has not occurred!Start: 11-06-2019 currently 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 NEGATED: Highlighted row has not occurred!Start: 07-06-2019 reported medical history 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 Plan of Treatment Date Care Activity Detail Author Start: 10-02-2024 Screening for malign ant neoplasm of cervix Pap smear [facility] Start: 08-19-2023 End: 08-19-2023 Patient encounter procedure 08/19/2023 11:00 AM EDT Routine [facility] [address] [place] [id number] Latasha Carlton PA [address] [place] [address] [facility] Start: 08-19-2023 End: 08-19-2023 Professional / ancillary services management 08/19/2023 10:00 AM EDT Ancillary Procedure [facility] [address] [place] [id number] [facility] Start: 01-20-2023 End: 01-20-2023 Admission to same day surgery center 01/20/2023 Surgery IP Unit Vickie Nichols MD [address] [place] [address] HYSTEROSCOPY - IUD REMOVAL [facility] Comment on above: HYSTEROSCOPY - IUD R EMOVAL Start: 01-20-2023 End: 01-20-2023 Hysteroscopy removal impacted foreign body HYSTEROSCOPY Intrauterine contraceptive device threads lost, initial encounter 01/20/2023 11:10 AM EDT [facility] Start: 01-20-2023 Subsequent hospital visit by physician 01/20/2023 Hospital Encounter IP Unit Vickie Nichols MD [address] [facility] [address] [facility] [address] [place] [address] [facility] Start: 12-29-2022 Influenza vaccination Flu vaccine (# 1) [facility] Start: 04-27-2022 End: 04-27-2022 Patient encounter procedure [facility] Start: 01-29-2022 Influenza vaccination [facility] Start: 02-07-2021 Cervical cancer screen Cervical canc er screen [facility] [place], [place] Start: 02-07-2021 Screening for malign ant neoplasm of cervix [facility] Start: 01-29-2021 Influenza vaccination Flu vacc ine (Season Ended) [facility] Work Phone: Start: 09-30-2020 CBC W Auto Different ial panel - Blood [facility] Start: 09-30-2020 Lipid 1996 panel - S stefan or Plasma LIPID PROFILE [facility] Start: 09-23-2020 Psychiatry [facility] Work Phone: Comment on above: Note: Please make a referral to: Start: 03-26-2020 SARS-CoV-2, KAILA [facility] Work Phone: Start: 03-19-2020 COVID Drive up Testing [facility] Work Phone: Start: 02-06-2020 Medical Establ ished Patient [facility] Work Phone: Start: 01-30-2020 Influenza vaccination Flu vaccine (# 1) [place], [place] Start: 11-09-2019 Medical Establ ished Patient [...] 07-13-2019 Lipid 1996 panel [facility] Work Phone: Start: 02-14-2019 End: 02-14-2019 Office Visit 02/14/2019 Office Visit Obstetrics and Gynecology Pilar Marie APRN - ANNETTA [address], [place] [id number] [facility] SPECIAL INVESTIGATOR Start: 02-07-2019 Chlamydia screen Chlamydia screen [place], [place] Start: 02-07-2019 Screening for Chlamy valentino trachomatis Chlamydia screen [facility] Start: 01-29-2019 Influenza vaccination Flu vaccine (# 1) [place], [place] Start: 10-29-2017 DTaP/Tdap/Td vaccine (2 - Td or Tdap) DTaP/Tdap/Td vaccine (2 - Td or Tdap) [facility] Start: 10-29-2017 DTaP/Tdap/Td vaccine (2 - Td) DTaP/Tdap/Td vaccine (2 - Td) [place], [place] Start: 2014 Hepatitis C screening Hepatitis C sc reen [facility] Start: 2012 COVID-19 Vaccine (1) COVID-19 Vaccin e (1) [facility] Work Phone: Start: 2011 HIV screen HIV screen [place], [place] Start: 2011 HIV screening HIV screen [facility]IG[facility] Start: 2011 HPV vaccine (1 - Fem shiela 3-dose series) HPV vaccine (1 - Female 3-dose series) [place], [place] Start: 2009 Varicella Vaccine (1 of 2 - 13+ 2-dose series) Varicella Vaccine (1 of 2 - 13+ 2-dose series) [place], [place] Start: 2008 COVID-19 Vaccine (1) COVID-19 Vaccin e (1) [facility] Departing Phone: Start: 2008 Depression Screen Depression Screen [facility] Start: 2007 HPV vaccine (1 - 2-d ose series) HPV vaccine (1 - 2-dose series) [facility] Start: 2007 HPV vaccine (1 - Fem shiela 2-dose series) HPV vaccine (1 - Female 2-dose series) [facility] Departing Phone: Start: 2001 COVID-19 Vaccine (1) COVID-19 Vaccin e (1) [facility] Start: 1997 Varicella vaccine (1 of 2 - 2-dose childhood series) Varicella vaccine (1 of 2 - 2-dose childhood series) [facility] Start: 1996 COVID-19 Vaccine (#1) COVID-19 Vacci ne (#1) [facility] [email or web address] Start: 1996 Hepatitis C screening Hepatitis C sc reen [facility] [employer] Phone: End: 12-16-2021 GLENNY Screen with Reflex [facility] Phone: Comment on above: Once for 1 Occurrenc es starting 12/16/2021 until 12/16/2021 End: 10-02-2021 Cytopathology procedure, preparation of smear, genital source PAP SMEAR Lab Routine Women's annual routine gynecological examination 1 Occurrences starting 10/02/2021 until 10/02/[facility] Comment on above: 1 Occurrences starti ng 10/02/2021 until 10/02/2021 End: 01-01-2023 Cytopathology procedure, preparation of smear, genital source PAP SMEAR Lab Routine Women's annual routine gynecological examination 1 Occurrences starting 01/01/2023 until 01/01/2023 [employer] Phone: Comment on above: 1 Occurrences starti ng 01/01/2023 until 01/01/2023 End: 12-16-2021 HLA-B27 Antigen [employer] Phone: Comment on above: Once for 1 Occurrenc es starting 12/16/2021 until 12/16/2021 End: 07-06-2019 Insulin, free Insulin, free Lab Routine Once for 1 Occurrences starting 07/06/2019 until 07/06/2019 [employer] Phone: Comment on above: Once for 1 Occurrenc es starting 07/06/2019 until 07/06/2019 Insulin, free Insulin, free La b Routine 07/06/2019 9:31 AM EST [employer] Phone: End: 12-16-2021 Lyme Ab BON [employer] Phone: Comment on above: Once for 1 Occurrenc es starting 12/16/2021 until 12/16/2021 Immunizations Immunization Date Immunization Notes Care Provider Em de la cruz 10-30-2007 tetanus toxoid, redu katelyn diphtheria toxoid, and acellular pertussis vaccine, adsorbed [facility] [employer] Payers Date Payer Category Payer Medicaid [id number] 2023 Unknown TNO[facility] [employer] [id number] 2023-Present [address] [address] [place] [address] [id number] 2023 Unknown [id number] 2022 Unknown [id number] 2018 Unknown [id number] [id number] 2016 Unknown [employer] [address] xxxxxxxxxxxx 2016-Present [phone] [address] [place] [address] xxxxxxxxxxxx [id number] 1996 Unknown [id number] [id number] 1996 Unknown [id number] 2.16.840.1.407166.3.579.2.173 1996 Unknown [id number] 2.16.840.1.363011.3.579.2.173 1996 Unknown [id number] 2.16.840.1.055362.3.579.2.173 1996 Unknown [id number] 2.16.840.1.448548.3.579.2.173 1996 Unknown [id number] 2.16.840.1.628551.3.579.2.173 1996 Unknown [id number] 2.16.840.1.726348.3.579.2.173 1996 Unknown [id number] 2.16.840.1.123593.3.579.2.173 1996 Unknown [id number] 2.16.840.1.733260.3.579.2.125 9 1996 Unknown [id number] 2.16.840.1.466415.3.579.2.125 9 1996 Unknown [id number] 2.16.840.1.451671.3.579.2.125 9 1996 Unknown [id number] 2.16.840.1.855082.3.579.2.125 9 1996 Unknown [id number] 2.16.840.1.814550.3.579.2.125 9 1996 Unknown [id number] 2.16.840.1.751870.3.579.2.125 9 1996 Unknown [id number] 2.16.840.1.805330.3.579.2.125 9 1996 Unknown [id number] 2.16.840.1.701394.3.579.2.125 9 1996 Unknown [id number] 2.16.840.1.649455.3.579.2.125 9 1996 Unknown [id number] 2.16.840.1.175072.3.579.2.125 9 1996 Unknown [id number] 2.16.840.1.288224.3.579.2.125 9 Unknown [id number] [id number] Social History Date Type Detail Facility Assertion [facility] Work Phone: Assertion Emotional stress (finding) [facility] Work Phone: Tobacco smoking status Unknown if ever smoked [facility] Work Phone: Assertion Sexually active (finding) [facility] Work Phone: Assertion Gender identity finding (finding) [facility] Work Phone: Assertion Finding of sexua l orientation (finding) [facility] Work Phone: Start: 10-13-2013 End: 02-07-2018 Tobacco smoking status NHIS Never smoker [employer] [place] Start: 02-07-2018 End: 01-01-2023 Alcohol intake Current drinker of alcohol (finding) [employer] Phone: Start: 12-12-2015 Alcohol [facility] [place] Start: 1996 Sex Assigned At Not on file [facility] [place] Start: 10-13-2013 End: 04-08-2020 Tobacco use and exposure Never used ROBBY Vogel Exposure to SARS-CoV-2 (event) Not sure ROBBY Vogel Start: 02-07-2018 Alcohol intake Yes ROBBY Gonzalez Assertion Family illness (situation) [facility] Work Phone: Assertion Single person (finding) [facility] Work Phone: Start: *Tobacco [employer] Start: 04-15-2023 [facility] NEGATED: Highlighted row Assertion Exposure to pollution (event) [facility] Work Phone: NEGATED: Highlighted row Assertion Tobacco user (finding) [facility] Work Phone: NEGATED: Highlighted row Assertion Current drinker of alcohol (finding) [facility] Work Phone: NEGATED: Highlighted row Assertion Finding relating to drug misuse behavior (finding) [facility] Work Phone: Mental Status Date Assessment Result Facility Cognitive function Cognitive fun ctioning was normal Cognitive function finding (finding) [facility] Work Phone: Clinical Notes 11-06-2019 to [...] Cervantes DO documented in this encounter [facility] 09-23-2020 Evaluation note Includes: Assessments for all patient encounters Findings Anxiety disorder NOS [facility] with Jammie RODAS 09/23/2020 Assessment of visit for: screening for human immunodeficiency virus Medical Established Patient with 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 CNP 09/23/2020 Diabetes Risk Test Score was three score 09/23/2020 Medical Established Patient with 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 [facility] 09/23/2020 Morbid obesity Medical Established Patient with 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 09/23/2020 Routine adult history and physical (18-64 yrs) without abnormal findings Medical Established Patient with 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 09/23/2020 Z68.41 - Body mass index [BMI]40.0-44.9, adult Medical Established Patient with 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 09/23/2020 Cough Telemedicine Establi sted Patient with 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 [facility] 03/19/2020 Exposure to a viral disease Telemedicine Establisted Patient with 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 [facility] 03/19/2020 Obesity due to excess calories Telemedic ine Establisted Patient with 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 [facility] 03/19/2020 Z68.37 - Body mass index [BM I] 37.0-37.9, adult Telemedicine Establisted Patient with 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 [facility] 03/19/2020 Obesity due to excess calories Medical E stablished Patient with 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 [facility] 03/05/2020 Z68.37 - Body mass index [BM I] 37.0-37.9, adult Medical Established Patient with 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 [facility] 03/05/2020 Obesity due to excess calories Medical E stablished Patient with Poly Wagonerle [facility] 12/05/2019 R21 - Rash and other nonspecific skin eruption Medical Established Patient with Poly Wagonerle [facility] 12/05/2019 Z68.35 - Body mass index (BM I) 35.0-35.9, adult Medical Established Patient with Poly Wagonerle [facility] 12/05/2019 Obesity due to excess calories Medical E stablished Patient with Poly Salvador [facility] 11/06/2019 Z68.36 - Body mass index (BM I) 36.0-36.9, adult Medical Established Patient with Poly Salvador [facility] 11/06/2019 Obesity due to excess calories Medical E stablished Patient with Poly Salvador [facility] 10/12/2019 Z68.38 - Body mass index (BM I) 38.0-38.9, adult Medical Established Patient with Poly Salvador [facility] 10/12/2019 L25.5 - Unspecified contact dermatitis due to plants, except food Medical Established Patient with Polykamryn Wagonerle [facility] 09/14/2019 Obesity due to excess calories Medical E stablished Patient with Poly Franco [employer] 09/14/2019 Z68.37 - Body mass index (BM I) 37.0-37.9, adult Medical Established Patient with Poly Franco [employer]AGE TUFTING MACHINE OPERATOR 09/14/2019 L25.5 - Unspecified contact dermatitis due to plants, except food Telemedicine with Poly Franco [employer] TU[employer]ING MACHINE OPERATOR 09/11/2019 Obesity due to excess calories Telemedic ine with Poly Franco [facility] 09/11/2019 Z68.37 - Body mass index (BM I) 37.0-37.9, adult Telemedicine with Poly Franco [employer] TU[employer]ING MACHINE OPERATOR 09/11/2019 Dermatitis due to contact wi th poison spencer Telemedicine with Poly Franco [employer] TUFTING MACHINE OPERATOR 09/05/2019 Obesity due to excess calories Telemedic ine with Poly Franco [facility] 09/05/2019 Z68.37 - Body mass index (BM I) 37.0-37.9, adult Telemedicine with Poly Franco [employer] TU[employer] MACHINE OPERATOR 09/05/2019 Obesity due to excess calories Medical E stablished Patient with 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 [facility] 08/17/2019 Z68.37 - Body mass index (BM I) 37.0-37.9, adult Medical Established Patient with 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 08/17/2019 Generalized anxiety disorder BH Establis hed Patient with Anh VIDAL 07/06/2019 Anxiety disorder NOS Medical New Patient with Allyson Nye [employer]AGE TUFTING MACHINE OPERATOR 07/06/2019 Depression Medical New Patient with Allyson Everett [employer]AGE TUFTING MACHINE OPERATOR 07/06/2019 Diabetes Risk Test Score was one score Medical New Patient with Allyson Broxton [employer]ARDAGE TUFTING MACHINE OPERATOR 07/06/2019 Idiopathic insomnia Medical New Patient with Allyson Broxton [employer]AGE TUFTING MACHINE OPERATOR 07/06/2019 Obesity due to excess calories Medical N ew Patient with Allyson Broxton [employer]AGE TUFTING MACHINE OPERATOR 07/06/2019 Z68.39 - Body mass index (BM I) 39.0-39.9 adult Medical New Patient with Allyson Nye [employer]ARDAGE TUFTING MACHINE OPERATOR 07/06/2019 [facility] Work Phone: [phone] 535-167106-08-2020 History general Narrative - Reported Includes: Medical History in patient's chart Description Last Updated Not currently nursing 11/06/2019 Not 11/06/2019 No reported medical history or no signif icant history 07/06/2019 [facility] Work Phone: Evaluation note Includes: Assessments for all patient encounters Findings Encounter Date Assessment of visit for: scr eening for human immunodeficiency virus Medical Established Patient with 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 [facility] 09/23/2020 Diabetes Risk Test Score was three score 09/23/2020 Medical Established Patient with 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 [facility] 09/23/2020 Morbid obesity Medical Established Patient with 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 [facility] 09/23/2020 Routine adult history and ph ysical (18-64 yrs) without abnormal findings Medical Established Patient with 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 [facility] 09/23/2020 Z68.41 - Body mass index [BMI]40.0-44.9, adult Medical Established Patient with 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 [facility] 09/23/2020 Cough Telemedicine Establi sted Patient with 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 [facility] 03/19/2020 Exposure to a viral disease Telemedicine Establisted Patient with 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 [facility] 03/19/2020 Obesity due to excess calories Telemedic ine Establisted Patient with 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 [facility] 03/19/2020 Z68.37 - Body mass index [BM I] 37.0-37.9, adult Telemedicine Establisted Patient with 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 [facility] 03/19/2020 Obesity due to excess calories Medical E stablished Patient with 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 [facility] 03/05/2020 Z68.37 - Body mass index [BM I] 37.0-37.9, adult Medical Established Patient with 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 [facility] 03/05/2020 Obesity due to excess calories Medical E stablished Patient with Poly Salvador [facility] 12/05/2019 R21 - Rash and other nonspec ific skin eruption Medical Established Patient with Poly Salvador [facility] 12/05/2019 Z68.35 - Body mass index (BM I) 35.0-35.9, adult Medical Established Patient with Poly Salvador [facility] 12/05/2019 Obesity due to excess calories Medical E stablished Patient with Poly Salvador [facility] 11/06/2019 Z68.36 - Body mass index (BM I) 36.0-36.9, adult Medical Established Patient with Poly Salvador [employer]AGE TUFTING MACHINE OPERATOR 11/06/2019 Obesity due to excess calories Medical E stablished Patient with Poly Salvador [facility] 10/12/2019 Z68.38 - Body mass index (BM I) 38.0-38.9, adult Medical Established Patient with Poly Salvador [employer]AGE TUFTING MACHINE OPERATOR 10/12/2019 L25.5 - Unspecified contact dermatitis due to plants, except food Medical Established Patient with Poly Franco [employer]AGE TUFTING MACHINE OPERATOR 09/14/2019 Obesity due to excess calories Medical E stablished Patient with Poly Franco [facility] 09/14/2019 Z68.37 - Body mass index (BM I) 37.0-37.9, adult Medical Established Patient with Poly Franco YARDAGE TUFTING MACHINE OPERATOR 09/14/2019 L25.5 - Unspecified contact dermatitis due to plants, except food Telemedicine with Poly Franco [facility] 09/11/2019 Obesity due to excess calories Telemedicine with Poly Franco [facility] 09/11/2019 Z68.37 - Body mass index (BM I) 37.0-37.9, adult Telemedicine with Poly Franco [facility] 09/11/2019 Dermatitis due to contact wi th poison spencer Telemedicine with Poly Franco [facility] 09/05/2019 Obesity due to excess calories Telemedicine with Poly Franco [facility] 09/05/2019 Z68.37 - Body mass index (BM I) 37.0-37.9, adult Telemedicine with Poly Franco [facility] 09/05/2019 Obesity due to excess calories Medical E stablished Patient with 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 [facility] 08/17/2019 Z68.37 - Body mass index (BM I) 37.0-37.9, adult Medical Established Patient with 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 [facility] 08/17/2019 Generalized anxiety disorder BH Establis hed Patient with Anh VIDAL 07/06/2019 Anxiety disorder NOS Medical New Patient with Allyson Everett [employer]ARDAGE TUFTING MACHINE OPERATOR 07/06/2019 Depression Medical New Patient with Allyson Broxton YARDAGE TUFTING MACHINE OPERATOR 07/06/2019 Diabetes Risk Test Score was one score M edical New Patient with Allyson Everett [employer]ARDAGE TUFTING MACHINE OPERATOR 07/06/2019 Idiopathic insomnia Medical New Patient with Allyson Broxton [employer]ARDAGE TUFTING MACHINE OPERATOR 07/06/2019 Obesity due to excess calories Medical N ew Patient with Allyson Everett YARDAGE TUFTING MACHINE OPERATOR 07/06/2019 Z68.39 - Body mass index (BM I) 39.0-39.9 adult Medical New Patient with Allyson Broxton YARDAGE TUFTING MACHINE OPERATOR 07/06/2019 [facility] Work Phone: Evaluation note* Diagnosis Nausea vomiting and diarrhea- Primary Nausea with vomiting Generalized abdominal pain Abdominal pain, generalized documented in this encounter [employer] Phone: evaluation note* Diagnosis Women's annual routine gynecological examination [facility]* Diagnosis Women's annual routine gynecological examination Intrauterine contraceptive device threads lost, initial encounter documented in this encounter [facility] Diagnosis Second trimester state, incidental [facility] Narrative History of Present Illness not supported for this document type No History of Present Illness [facility] Work Phone: Hospital Discharge instructions* Attachments The following attachments cannot be sent through Care Everywhere. * Abdominal Pain (Moroccan) * Nausea and Vomiting (Moroccan) * Diarrhea (Moroccan) [facility] Instructions Instructions not supported for this document type No Instructions [facility] Work Phone: Patient problem outcome Narrative Includes: Evaluations & Outcomes for active Goals No Outcomes [facility] Work Phone: Reason for referral (narrative)No Reason for Referral [facility] Work Phone: Review of systems Narrative - Reported Review of Systems not supported for this document type No Review of Systems [facility] Phone: Summary Purpose Family History No Family History Records Found Description Last Updated Maternal history of rheumatoid arthritis 07/06/2019 Maternal history of rheumatologic disord er Fibromyalgia 07/06/2019 Maternal history of systemic lupus eryth ematosus 07/06/2019 Paternal history of type 1 diabetes marino itus 07/06/2019 Advance Directives No Advanced Directives Records FoundDocuments on File Type Date Recorded Patient Program And Research Coordinator Expl anation Advance Directives and Living Will Power of Manager Medicare Documents on File Type Date Recorded Patient Program And Research Coordinator Expl anation ACP-Advance Directive ACP-Power of Manager Medicare Documents on File Type Date Recorded Patient Program And Research Coordinator Expl anation Advance Directives and Living Will Power of Manager Medicare Reason for Referral No Reason for Referral [...] score Medical New Patient with Allyson Floyd YARDAGE TUFTING MACHINE OPERATOR 07/06/2019 Idiopathic insomnia Medical New Patient with Allyson Floyd YARDAGE TUFTING MACHINE OPERATOR 07/06/2019 Obesity due to excess calories Medical N ew Patient with Allyson Floyd YARDAGE TUFTING MACHINE OPERATOR 07/06/2019 Z68.39 - Body mass index (BM I) 39.0-39.9 adult Medical New Patient with Allyson Floyd YARDAGE TUFTING MACHINE OPERATOR 07/06/2019 Findings Encounter Date Obesity due to excess calories Medical E stablished Patient with Poly Wagonerle [facility] 10/12/2019 Z68.38 - Body mass index (BM I) 38.0-38.9, adult Medical Established Patient with Poly Franoc [facility] 10/12/2019 L25.5 - Unspecified contact dermatitis due to plants, except food Medical Established Patient with Poly Franco [facility] 09/14/2019 Obesity due to excess calories Medical E stablished Patient with Poly Wagonerle [facility] 09/14/2019 Z68.37 - Body mass index (BM I) 37.0-37.9, adult Medical Established Patient with Poly Franco [facility] 09/14/2019 L25.5 - Unspecified contact dermatitis due to plants, except food Telemedicine with Poly Wagonerle [facility] 09/11/2019 Obesity due to excess calories Telemedicine with Poly Wagonerle [facility] 09/11/2019 Z68.37 - Body mass index (BM I) 37.0-37.9, adult Telemedicine with Poly Wagonerle [facility] 09/11/2019 Dermatitis due to contact wi th poison spencer Telemedicine with Poly Wagonerle [facility] 09/05/2019 Obesity due to excess calories Telemedicine with Poly Wagonerle [facility] 09/05/2019 Z68.37 - Body mass index (BM I) 37.0-37.9, adult Telemedicine with Poly Wagonerle [facility] 09/05/2019 Obesity due to excess calories Medical E stablished Patient with Miguelcristal 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 08/17/2019 Z68.37 - Body mass index (BM I) 37.0-37.9, adult Medical Established Patient with Miguel Leydi [employer]ARDAGE TUFTING MACHINE OPERATOR 08/17/2019 Generalized anxiety disorder BH Establis hed Patient with Anhbrad Virk MANAGED CARE COORDINATOR-S 07/06/2019 Anxiety disorder NOS Medical New Patient with Allyson Broxton YARDAGE TUFTING MACHINE OPERATOR 07/06/2019 Depression Medical New Patient with Allyson Broxton YARDAGE TUFTING MACHINE OPERATOR 07/06/2019 Diabetes Risk Test Score was one score Medical New Patient with Allyson Broxton YARDAGE TUFTING MACHINE OPERATOR 07/06/2019 Idiopathic insomnia Medical New Patient with Allyson Broxton YARDAGE TUFTING MACHINE OPERATOR 07/06/2019 Obesity due to excess calories Medical N ew Patient with Allyson Broxton YARDAGE TUFTING MACHINE OPERATOR 07/06/2019 Z68.39 - Body mass index (BM I) 39.0-39.9 adult Medical New Patient with Allyson Everett YARDAGE TUFTING MACHINE OPERATOR 07/06/2019 Findings Encounter Date Obesity due to excess calories Medical E stablished Patient with Miguel Leydi YARDAGE TUFTING MACHINE OPERATOR 08/17/2019 Z68.37 - Body mass index (BM I) 37.0-37.9, adult Medical Established Patient with 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 08/17/2019 Generalized anxiety disorder BH Establis hed Patient with Anh Virk MANAGED CARE COORDINATOR-S 07/06/2019 Anxiety disorder NOS Medical New Patient with Allyson Broxton YARDAGE TUFTING MACHINE OPERATOR 07/06/2019 Depression Medical New Patient with Allyson Everett YARDAGE TUFTING MACHINE OPERATOR 07/06/2019 Diabetes Risk Test Score was one score Medical New Patient with Allyson Broxton YARDAGE TUFTING MACHINE OPERATOR 07/06/2019 Idiopathic insomnia Medical New Patient with Allyson Everett YARDAGE TUFTING MACHINE OPERATOR 07/06/2019 Obesity due to excess calories Medical N ew Patient with Allyson Broxton YARDAGE TUFTING MACHINE OPERATOR 07/06/2019 Z68.39 - Body mass index (BM I) 39.0-39.9 adult Medical New Patient with Allyson Everett YARDAGE TUFTING MACHINE OPERATOR 07/06/2019 Findings Encounter Date Dermatitis due to contact wi th poison spencer Telemedicine with Poly Wagonerle YARDAGE TUFTING MACHINE OPERATOR 09/05/2019 Obesity due to excess calories Telemedicine with Poly Salvador YARDAGE TUFTING MACHINE OPERATOR 09/05/2019 Z68.37 - Body mass index (BM I) 37.0-37.9, adult Telemedicine with Poly Salvador YARDAGE TUFTING MACHINE OPERATOR 09/05/2019 Obesity due to excess calories Medical E stablished Patient with Miguel Leydi YARDAGE TUFTING MACHINE OPERATOR 08/17/2019 Z68.37 - Body mass index (BM I) 37.0-37.9, adult Medical Established Patient with 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 08/17/2019 Generalized anxiety disorder BH Establis hed Patient with Anh Moose RODAS-S 07/06/2019 Anxiety disorder NOS Medical New Patient with Allyson Nye YARDAGE TUFTING MACHINE OPERATOR 07/06/2019 Depression Medical New Patient with Allyson Everett YARDAGE TUFTING MACHINE OPERATOR 07/06/2019 Diabetes Risk Test Score was one score Medical New Patient with Allyson Broxton YARDAGE TUFTING MACHINE OPERATOR 07/06/2019 Idiopathic insomnia Medical New Patient with Allyson Broxton YARDAGE TUFTING MACHINE OPERATOR 07/06/2019 Obesity due to excess calories Medical N ew Patient with Allyson Everett YARDAGE TUFTING MACHINE OPERATOR 07/06/2019 Z68.39 - Body mass index (BM I) 39.0-39.9 adult Medical New Patient with Allyson Floyd YARDAGE TUFTING MACHINE OPERATOR 07/06/2019 Findings Encounter Date L25.5 - Unspecified contact dermatitis due to plants, except food [facility] Obesity due to excess calories [facility] 09/11/2019 Z68.37 - Body mass index (BM I) 37.0-37.9, adult Telemedicine with [facility] 09/11/2019 Dermatitis due to contact wi th poison spencer Telemedicine with [facility] 09/05/2019 Obesity due to excess calories Telemedicine with [facility] 09/05/2019 Z68.37 - Body mass index (BM I) 37.0-37.9, adult [facility] 09/05/2019 Obesity due to excess calories Medical E stablished Patient with 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 [facility] 08/17/2019 Z68.37 - Body mass index (BM I) 37.0-37.9, adult Medical Established Patient with 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 08/17/2019 Generalized anxiety disorder BH Establis hed Patient with Anh Virk MANAGED CARE COORDINATOR-S 07/06/2019 Anxiety disorder NOS Medical New Patient with Allyson Everett YARDAGE TUFTING MACHINE OPERATOR 07/06/2019 Depression Medical New Patient with Allyson Everett YARDAGE TUFTING MACHINE OPERATOR 07/06/2019 Diabetes Risk Test Score was one score Medical New Patient with Allyson Everett YARDAGE TUFTING MACHINE OPERATOR 07/06/2019 Idiopathic insomnia Medical New Patient with Allyson Broxton YARDAGE TUFTING MACHINE OPERATOR 07/06/2019 Obesity due to excess calories Medical N ew Patient with Allyson Floyd YARDAGE TUFTING MACHINE OPERATOR 07/06/2019 Z68.39 - Body mass index (BM I) 39.0-39.9 adult Medical New Patient with Allyson Floyd YARDAGE TUFTING MACHINE OPERATOR 07/06/2019 Findings Encounter Date L25.5 - Unspecified contact dermatitis due to plants, except food Medical Established Patient with Poly Franco YARDAGE TUFTING MACHINE OPERATOR 09/14/2019 Obesity due to excess calories Medical E stablished Patient with Poly Franco [facility] 09/14/2019 Z68.37 - Body mass index (BM I) 37.0-37.9, adult Medical Established Patient with Poly Franco [facility] 09/14/2019 L25.5 - Unspecified contact dermatitis due to plants, except food Telemedicine with Poly Franco [facility] 09/11/2019 Obesity due to excess calories [facility] Z68.37 - Body mass index (BM I) 37.0-37.9, adult Telemedicine with Poly Franco [facility] 09/11/2019 Dermatitis due to contact wi th poison spencer Telemedicine with Poly Franco [facility] 09/05/2019 Obesity due to excess calories Telemedicine with Poly Franco [facility] 09/05/2019 Z68.37 - Body mass index (BM I) 37.0-37.9, adult Telemedicine with Poly Franco [facility] 09/05/2019 Obesity due to excess calories Medical E stablished Patient with 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 [facility] 08/17/2019 Z68.37 - Body mass index (BM I) 37.0-37.9, adult Medical Established Patient with 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 [facility] 08/17/2019 Generalized anxiety disorder BH Establis hed Patient with Anh VIDAL 07/06/2019 Anxiety disorder NOS Medical New Patient with Allyson Floyd YARDAGE TUFTING MACHINE OPERATOR 07/06/2019 Depression Medical New Patient with Allyson Everett YARDAGE TUFTING MACHINE OPERATOR 07/06/2019 Diabetes Risk Test Score was one score Medical New Patient with Allyson Broxton YARDAGE TUFTING MACHINE OPERATOR 07/06/2019 Idiopathic insomnia Medical New Patient with Allyson Broxton YARDAGE TUFTING MACHINE OPERATOR 07/06/2019 Obesity due to excess calories Medical N ew Patient with Allyson Everett YARDAGE TUFTING MACHINE OPERATOR 07/06/2019 Z68.39 - Body mass index (BM I) 39.0-39.9 adult Medical New Patient with Allyson Broxton [facility] 07/06/2019 Findings Encounter Date Obesity due to excess calories Medical E stablished Patient with Poly Franco [facility] 11/06/2019 Z68.36 - Body mass index (BM I) 36.0-36.9, adult Medical Established Patient with Poly Franco [facility] 11/06/2019 Obesity due to excess calories Medical E stablished Patient with Poly Franco [facility] 10/12/2019 Z68.38 - Body mass index (BM I) 38.0-38.9, adult Medical Established Patient with Poly Franco [facility] 10/12/2019 L25.5 - Unspecified contact dermatitis due to plants, except food Medical Established Patient with Poly Franco [facility] 09/14/2019 Obesity due to excess calories [facility] Z68.37 - Body mass index (BM I) 37.0-37.9, adult [facility]2019 L25.5 - Unspecified contact dermatitis due to plants, except food Telemedicine with Poly Franco [facility] 09/11/2019 Obesity due to excess calories [facility]11[facility]2019 Z68.37 - Body mass index (BM I) 37.0-37.9, adult Telemedicine with Poly [facility] 09/11/2019 Dermatitis due to contact wi th poison spencer [facility] Obesity due to excess calories Telemedicine with Poly [facility] 09/05/2019 Z68.37 - Body mass index (BM I) 37.0-37.9, adult Telemedicine with Poly Franco [facility] 09/05/2019 Obesity due to excess calories Medical E stablished Patient with 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 [facility] 08/17/2019 Z68.37 - Body mass index (BM I) 37.0-37.9, adult Medical Established Patient with Miguel Leydi [facility] 08/17/2019 Generalized anxiety disorder BH Establis hed Patient with Anh VIDAL 07/06/2019 Anxiety disorder NOS Medical New Patient with Allyson Floyd YARDAGE TUFTING MACHINE OPERATOR 07/06/2019 Depression Medical New Patient with Allyson Floyd YARDAGE TUFTING MACHINE OPERATOR 07/06/2019 Diabetes Risk Test Score was one score Medical New Patient with Allyson Broxton YARDAGE TUFTING MACHINE OPERATOR 07/06/2019 Idiopathic insomnia Medical New Patient with Allyson Floyd YARDAGE TUFTING MACHINE OPERATOR 07/06/2019 Obesity due to excess calories Medical N ew Patient with Allyson Floyd YARDAGE TUFTING MACHINE OPERATOR 07/06/2019 Z68.39 - Body mass index (BM I) 39.0-39.9 adult Medical New Patient with Allyson Floyd YARDAGE TUFTING MACHINE OPERATOR 07/06/2019 Findings Encounter Date Obesity due to excess calories Medical E stablished Patient with Poly Franco YARDAGE TUFTING MACHINE OPERATOR 12/05/2019 R21 - Rash and other nonspec ific skin eruption Medical Established Patient with Polykamryn Wagonerle YARDAGE TUFTING MACHINE OPERATOR 12/05/2019 Z68.35 - Body mass index (BM I) 35.0-35.9, adult Medical Established Patient with Poly Wagonerle YARDAGE TUFTING MACHINE OPERATOR 12/05/2019 Obesity due to excess calories Medical E stablished Patient with Poly Wagonerle YARDAGE TUFTING MACHINE OPERATOR 11/06/2019 Z68.36 - Body mass index (BM I) 36.0-36.9, adult Medical Established Patient with Poly Wagonerle YARDAGE TUFTING MACHINE OPERATOR 11/06/2019 Obesity due to excess calories Medical E stablished Patient with Poly Wagonerle [facility] 10/12/2019 Z68.38 - Body mass index (BM I) 38.0-38.9, adult Medical Established Patient with Polykamryn Wagonerle [facility] 10/12/2019 L25.5 - Unspecified contact dermatitis due to plants, except food Medical Established Patient with Ploy Wagonerle [facility] 09/14/2019 Obesity due to excess calories Medical E stablished Patient with Polykamryn Wagonerle [facility] 09/14/2019 Z68.37 - Body mass index (BM I) 37.0-37.9, adult Medical Established Patient with Poly Wagonerle [facility] 09/14/2019 L25.5 - Unspecified contact dermatitis due to plants, except food Telemedicine with Polykamryn Wagonerle [facility] 09/11/2019 Obesity due to excess calories Telemedicine with Poly Salvador [facility] 09/11/2019 Z68.37 - Body mass index (BM I) 37.0-37.9, adult Telemedicine with Polykamryn Wagonerle [facility] 09/11/2019 Dermatitis due to contact wi th poison spencer Telemedicine with Poly Wagonerle [facility] 09/05/2019 Obesity due to excess calories Telemedicine with Poly Wagonerle [facility] 09/05/2019 Z68.37 - Body mass index (BM I) 37.0-37.9, adult Telemedicine with Polykamryn Wagonerle [employer]ING MACHINE OPERATOR 09/05/2019 Obesity due to excess calories Medical E stablished Patient with 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 08/17/2019 Z68.37 - Body mass index (BM I) 37.0-37.9, adult Medical Established Patient with 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 08/17/2019 Generalized anxiety disorder BH Establis hed Patient with Anh VIDAL 07/06/2019 Anxiety disorder NOS Medical New Patient with Allyson Floyd [employer]ARDAGE TUFTING MACHINE OPERATOR 07/06/2019 Depression Medical New Patient with Allyson Floyd YARDAGE TUFTING MACHINE OPERATOR 07/06/2019 Diabetes Risk Test Score was one score Medical New Patient with Allyson Floyd YARDAGE TUFTING MACHINE OPERATOR 07/06/2019 Idiopathic insomnia Medical New Patient with Allyson Floyd YARDAGE TUFTING MACHINE OPERATOR 07/06/2019 Obesity due to excess calories Medical N ew Patient with Allyson Nye YARDAGE TUFTING MACHINE OPERATOR 07/06/2019 Z68.39 - Body mass index (BM I) 39.0-39.9 adult Medical New Patient with Allyson Floyd YARDAGE TUFTING MACHINE OPERATOR 07/06/2019 Findings Encounter Date Obesity due to excess calories Medical E stablished Patient with 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 03/05/2020 Z68.37 - Body mass index [BM I] 37.0-37.9, adult Medical Established Patient with 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 03/05/2020 Obesity due to excess calories Medical E stablished Patient with Poly Wagonerle YARDAGE TUFTING MACHINE OPERATOR 12/05/2019 R21 - [facility] Patient with Polykamryn Wagonerle YARDAGE TUFTING MACHINE OPERATOR 12/05/2019 Z68.35 - Body mass index (BM I) 35.0-35.9, adult Medical Established Patient with Polykamryn Wagonerle [employer]ARDAGE TUFTING MACHINE OPERATOR 12/05/2019 Obesity due to excess calories Medical E stablished Patient with Poly Salvador [employer]AGE TUFTING MACHINE OPERATOR 11/06/2019 Z68.36 - Body mass index (BM I) 36.0-36.9, adult Medical Established Patient with Poly Salvador [employer]AGE TUFTING MACHINE OPERATOR 11/06/2019 Obesity due to excess calories Medical E stablished Patient with Poly Salvador YARDAGE TUFTING MACHINE OPERATOR 10/12/2019 Z68.38 - Body mass index (BM I) 38.0-38.9, adult Medical Established Patient with Poly Salvador YARDAGE TUFTING MACHINE OPERATOR 10/12/2019 L25.5 - Unspecified contact dermatitis due to plants, except food Medical Established Patient with Poly Salvador [employer]AGE TUFTING MACHINE OPERATOR 09/14/2019 Obesity due to excess calories Medical E stablished Patient with Poly Franco [facility] 09/14/2019 Z68.37 - Body mass index (BM I) 37.0-37.9, adult Medical Established Patient with Poly Franco [facility] 09/14/2019 L25.5 - Unspecified contact dermatitis due to plants, except food Telemedicine with Poly Franco [facility] 09/11/2019 Obesity due to excess calories Telemedicine with Poly Franco [facility] 09/11/2019 Z68.37 - Body mass index (BM I) 37.0-37.9, [facility] Dermatitis due to contact wi th poison spencer Telemedicine with Poly Franco [facility] 09/05/2019 Obesity due to excess calories Telemedicine with Poly Franco [facility] 09/05/2019 Z68.37 - Body mass index (BM I) 37.0-37.9, adult Telemedicine with Poly Franco [facility] 09/05/2019 Obesity due to excess calories Medical E stablished Patient with 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 [facility] 08/17/2019 Z68.37 - Body mass index (BM I) 37.0-37.9, adult Medical Established Patient with 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 [facility] 08/17/2019 Generalized anxiety disorder BH Establis hed Patient with Anh VIDAL 07/06/2019 Anxiety disorder NOS Medical New Patient with Allyson Nye [facility] 07/06/2019 Depression Medical New Patient with Allyson Nye [facility] 07/06/2019 Diabetes Risk Test Score was one score Medical New Patient with Allyson Nye [facility] 07/06/2019 Idiopathic insomnia Medical New Patient with Allyson Broxton [facility] 07/06/2019 Obesity due to excess calories Medical N ew Patient with Allyson Everett [facility] 07/06/2019 Z68.39 - Body mass index (BM I) 39.0-39.9 adult Medical New Patient with Allyson Floyd [facility] 07/06/2019 Findings Encounter Date Cough Telemedicine Establi sted Patient with 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 [facility] 03/19/2020 Exposure to a viral disease Telemedicine Establisted Patient with Miguel Leydi [facility] 03/19/2020 Obesity due to excess calories Telemedic ine Establisted Patient with Miguel Leydi [facility] 03/19/2020 Z68.37 - Body mass index [BM I] 37.0-37.9, adult Telemedicine Establisted Patient with 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 [facility] 03/19/2020 Obesity due to excess calories Medical E stablished Patient with 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 [facility] 03/05/2020 Z68.37 - Body mass index [BM I] 37.0-37.9, adult Medical Established Patient with 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 [facility] 03/05/2020 Obesity due to excess calories Medical E stablished Patient with Poly Franco [facility] 12/05/2019 R21 - Rash and other nonspec ific skin eruption Medical Established Patient with Poly Wagonerle [facility] 12/05/2019 Z68.35 - Body mass index (BM I) 35.0-35.9, adult Medical Established Patient with Poly Wagonerle [facility] 12/05/2019 Obesity due to excess calories Medical E stablished Patient with Poly Wagonerle [facility] 11/06/2019 Z68.36 - Body mass index (BM I) 36.0-36.9, adult Medical Established Patient with Poly Franco [facility] 11/06/2019 Obesity due to excess calories Medical E stablished Patient with Poly Wagonerle [facility] 10/12/2019 Z68.38 - Body mass index (BM I) 38.0-38.9, adult Medical Established Patient with Poly Wagonerle [facility] 10/12/2019 L25.5 - Unspecified contact dermatitis due to plants, except food Medical Established Patient with Poly Wagonerle [facility] 09/14/2019 Obesity due to excess calories Medical E stablished Patient with Poly Wagonerle [facility] 09/14/2019 Z68.37 - Body mass index (BM I) 37.0-37.9, adult Medical Established Patient with Poly Franco [facility] 09/14/2019 L25.5 - Unspecified contact dermatitis due to plants, except food Telemedicine with Poly Wagonerle [facility] 09/11/2019 Obesity due to excess calories Telemedicine with Poly Wagonerle [facility] 09/11/2019 Z68.37 - Body mass index (BM I) 37.0-37.9, adult Telemedicine with Poly Wagonerle [facility] 09/11/2019 Dermatitis due to contact wi th poison sepncer Telemedicine with Poly Wagonerle [facility] 09/05/2019 Obesity due to excess calories Telemedicine with Poly Wagonerle [facility] 09/05/2019 Z68.37 - Body mass index (BM I) 37.0-37.9, adult Telemedicine with Poly Wagonerle [facility] 09/05/2019 Obesity due to excess calories Medical E stablished Patient with 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 08/17/2019 Z68.37 - Body mass index (BM I) 37.0-37.9, adult Medical Established Patient with 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 08/17/2019 Generalized anxiety disorder BH Establis hed Patient with Anh VIDAL 07/06/2019 Anxiety disorder NOS Medical New Patient with Allyson Floyd [employer]ARDAGE TUFTING MACHINE OPERATOR 07/06/2019 Depression Medical New Patient with Allyson Floyd YARDAGE TUFTING MACHINE OPERATOR 07/06/2019 Diabetes Risk Test Score was one score Medical New Patient with Allyson Floyd [employer]ARDAGE TUFTING MACHINE OPERATOR 07/06/2019 Idiopathic insomnia Medical New Patient with Allyson Floyd [employer]ARDAGE TUFTING MACHINE OPERATOR 07/06/2019 Obesity due to excess calories Medical N ew Patient with Allyson Nye [employer]AGE TUFTING MACHINE OPERATOR 07/06/2019 Z68.39 - Body mass index (BM I) 39.0-39.9 adult Medical New Patient with Allyson Floyd [employer]ARDAGE TUFTING MACHINE OPERATOR 07/06/2019 Diagnosis COVID-19 Fatty liver Other [...] Everywhere. * Coronavirus Disease (COVID-19): General Info (Moroccan) documented in this encounter Additional Source Comments INFORMATION SOURCE (unrecogn ized section and content) DATE CREATED AUTHOR 11/24/2017 [facility] DATE CREATED AUTHOR AUTHOR'S ORGANIZ ATION 08/26/2018 [facility] DATE CREATED AUTHOR AUTHOR'S ORGANIZ ATION 09/24/2020 [facility] DATE CREATED AUTHOR AUTHOR'S ORGANIZ ATION 05/14/2023 [facility] DATE CREATED AUTHOR AUTHOR'S ORGANIZ ATION 12/19/2023 [facility] EPIC Evaluations & Outcomes [...] TRANSVAGINAL, NON OB Dana Akins MD [address] [place] [address] [facility] Ultrasound [address] [place] [address] Reason Comments Emesis multiple episodes si nce [...] mL/hr, Administer over 1 Hours, ONCE, On 10/14/20 at 2345, For 1 dose 0005 (New Bag - Prov ider: Erica Garcia RN)0111 (Stopped - Provider: Erica Garcia RN) hydrocodone-acetaminophen (NORCO) tablet 5-325 mg (STARTER PACK) This order is for a take home starter pack of medication. Please document Not Given with a reason of other on the JUL along with a comment of sent home [...] Care Teams (unrecognized sec tion and content) Library Paraprofessional Relationship Specialty Start Date End Date 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, 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 - YARDAGE TUFTING MACHINE OPERATOR PCP - General Family Medicine 04/08/20 Library Paraprofessional Relationship Specialty Start Date End Date 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IOANA - DIANELYS PCP - General Family Medicine 04/08/20 Library Paraprofessional Relationship Specialty Start Date End Date 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, IOANA - YARDAGE TUFTING MACHINE OPERATOR PCP - General Family Medicine 04/08/20 [...] BE BASED ON THE PRIMARY CLINICAL RECORDS. [facility]. provides no warranty or guarantee of the accuracy or completeness of information in this document.
--- NOTE | 2023-12-23 09:51 | US_ITS ---
[address] [address] Patient Name: TARA FLOREZ MRN: [id number] date: 1995 Sex: F Assigned Patient Location: [facility] Current Patient Location: [facility] Accession/Order Number: [id number] Exam Date: 12/23/2023 10:00 Report Date: 12/23/2023 10:41 At the request of: BRUCE CARD Procedure: US OB BPP w non-stress EXAMINATION: US OB BPP w non-stress HISTORY: Excessive growth COMPARISON: No relevant comparison available. TECHNIQUE: Ultrasound biophysical profile was performed in the radiology department. non-reactive stress testing was performed by nursing staff in the birthing center. FINDINGS: BREATHING MOVEMENTS: 2 GROSS BODY MOVEMENTS: 2 TONE: 2 QUALITATIVE AMNIOTIC FLUID VOLUME: 2 PRESENTATION: CEPHALIC HEART RATE: 135.68 bpm AMNIOTIC FLUID VOLUME: 16.0 cm GESTATIONAL AGE: 38 weeks 0 days US/US OB BPP w non-stress IMPRESSION: Total biophysical profile score: 8 Electronically authenticated by: KURT STONE Date: 12/23/2023 10:41
[2023-12-23 10:22] VITALS: BP 131/79; PULSE 98
== END 2023-12-23 10:50 | disposition home or self-care (01) ==
LOC: US 07:04 → FBC 09:45
PROVIDERS: Visit Provider Obstetrics & Gynecology
DX: O36.63X0 Maternal care for excessive fetal growth, third trimester, not applicable or unspecified (principal); Z3A.38 38 weeks gestation of pregnancy
CPT/HCPCS: 76818

== ENCOUNTER 2023-12-27 07:02 | Outpatient (OUT) | payer MEDICAID, SELFPAY ==
--- OUTSIDE RECORDS SUMMARY | 2023-12-27 07:05 | XMS_ITS | CCD ---
Author Organization [facility] Care Team Providers Care Rub[employer] He[employer] Sole Press Tender Name Role Phone NO FAMILY PHYSICIAN, [phone] Unavailable Unavail able FELIX GALVAN Unavailable Unavailable Leydi, Miguel Primary Care Provider Jackson Haas Primary Care Provider 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 Primary Care Provider Leydi Miguel M Primary Care Provider 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 CNP Primary Care Provider Leydi HOG BUYER - MANAGER PLAY, Miguel M Primary Care Provider LEYDI MIGUEL M Referring Unavailable LEYDI, MIGUEL M Primary Care Unavailable Leydi HOG BUYER - DIANELYS, Miguel M Primary Care Provider Leydi HOG BUYER - MANAGER PLAY, Miguel M Primary Care Provider Shona Lucio Primary Care Physician Yeison Sharpe HOG BUYER - MANAGER PLAY, Miguel M Primary Care Provider Leydi HOG BUYER - MANAGER PLAY, Miguel M Primary Care Provider LEYDI, MIGUEL [...] Hour] Drug Allergy 03-05-20 20 Wellbutrin SR [facility] Work Phone: Corticosteroids (6 sources) Triamcinolone Drug Allergy 10-14-19 14 Other (See Comments) [facility] Lisdexamfetamine (1 source) Lisdexamfetamine Drug Allergy 10-04-19 21 Vyvanse [facility] Work Phone: Naltrexone (4 sources) Naltrexone; Translations: [Naltrexone HCl 50 MG Oral Tablet] Drug Allergy 03-05-20 20 Naltrexone HCl [facility] Work Phone: (1 source) Triamcinolone; Translations: [TRIAMCINOLONE ACETONIDE] Drug Allergy 10-12-19 15 [facility] Repository (16 sources) Triamcinolone; Translations: [Kenalog] Drug Allergy 07-06-19 20 [facility] Work Phone: (8 sources) Triamcinolone Drug Allergy 10-14-19 14 Other (See Comments), Other, Hives [facility] [place] (17 sources) Poison spencer Allergy to substance 07-20-19 20 [facility] Work Phone: (3 sources) buPROPion; Translations: [Wellbutrin SR 100 MG Oral Tablet Extended Release 12 Hour] Drug Allergy 03-05-20 20 Wellbutrin SR [facility] Work Phone: (3 sources) Naltrexone; Translations: [Naltrexone HCl 50 MG Oral Tablet] Drug Allergy 03-05-20 20 Naltrexone HCl [facility] Work Phone: Medications Current Medications Medication [...] daily. 118 mL 1 12/17/2016 Active levonorgestrel 0.733096 mg/hr intrauterine system (17 sources) Progestin, Progestin-contai [...] Start: 09-10-2021 take 1 capsule by mo [facility] once daily in the morning VYVANSE 50 [...] UA Negative Negative - 4(70) +++ mg/dL [facility] Blood, UA Negative Negative - 50 Chuy/mcL [facility] Clarity, UA Clear [facility] Color, UA Yellow [facility] Glucose, UA Negative Negative - 1999(110) ++++ mg/dL [facility] Interpretation and review of laboratory results Normal [facility] Ketones, UA Positive Negative - 160(16) ++++ mg/dL [facility] Leukocytes, UA Negative Negative - 500+++ Sadi/mcL [facility] Nitrite, UA Negative Negative - Positive [facility] pH, UA 6.5 5 - 9 [facility] Protein, UA Negative Negative - 1999(20) ++++ mg/dL [facility] Spec Grav, UA 1.025 1 - 1.03 [facility] Urobilinogen, UA 0.2 0.2 - 12 mg/dL [facility] HCG, Quanton 05-12-2023 HCG, Quant 9701.0 mIU/mL High <5 [facility] Comment on above: Result Comment: Non-preg premeno <=5 Postmeno <=8 Male <=3 If HCG results do not concur with clinical observations, additional testing to confirm results is recommended. Performed By: #### B HCG #### [facility] [address] [place] [address] [place] [address] [employer]otive Metalsmith: Mateusz Brand MD HCG, Quanton 05-07-2023 HCG, Quant 3514.0 mIU/mL High <5 [facility] Comment on above: Result Comment: Non-preg premeno <=5 Postmeno <=8 Male <=3 If HCG results do not concur with clinical observations, additional testing to confirm results is recommended. Performed By: #### B HCG #### [facility] [address] [place] [address] [employer]otive Metalsmith: Mateusz Brand MD HCG, Quanton 05-05-2023 HCG, Quant 2224.0 mIU/mL High <5 [facility] Comment on above: Result Comment: Non-preg premeno <=5 Postmeno <=8 Male <=3 If HCG results do not concur with clinical observations, additional testing to confirm results is recommended. Performed By: #### B HCG #### [facility] [address] [place] [address] [employer] Metalsmith: Mateusz Brand MD US PELVIS COMPLETE NON-OB [...] Yousif Lamb MD 03/25/23 Final result Normal [facility] CBC with Diffon 03-24-2023 Abs. Basophil 0.06 k/uL Normal 0.00-0.20 [facility] Comment on above: Performed By: #### C DP, CG #### [address] [place], [place] [id number] Automotive Metalsmith: Mateusz Brand MD Abs.Imm.Granulocyte 0.03 k/uL Normal 0.00-0.30 [facility] Comment on above: Performed By: #### C TJ BHCG #### [address] [place], [place] [address] Automotive Metalsmith: Mateusz Brand MD Abs.Neutrophil (Seg) 7.07 k/uL Normal 1.50-8.[address] [facility] Comment on above: Performed By: #### C TJ CG #### [address] [place] [address] Automotive Metalsmith: Mateusz Brand MD Basophils/100 WBC (Bld) 1 % Normal 0-2 [facility] Comment on above: Performed By: #### [facility] #### [address] [place], [place] [address] Automotive Metalsmith: Mateusz Brand MD Eosinophils (Bld) [#/Vol] 0.13 10*3/uL Normal 0.00-0.44 [facility] Comment on above: Performed By: #### C TJ BHCG #### [address] [place], [place] [address] [employer] Metalsmith: Mateusz Brand MD Eosinophils/100 WBC (Bld) 1 % Normal 1-4 [facility] Comment on above: Performed By: #### C TJ CG #### [address] [place] [address] [employer] Metalsmith: Mateusz Brand MD Erythrocyte distribution width (RBC) [Ratio] 11.9 % Normal 11.8-14.4 [facility] Comment on above: Performed By: #### C TJ BHCG #### [address] [place], [place] [id number] [employer] Metals[employer]: Mateusz Brand MD Hematocrit (Bld) [Volume fraction] 37.8 % Normal 36.3-47.1 [facility] Comment on above: Performed By: #### C DP, BHCG #### [address] [place], [place] [id number] Automotive Metalsmith: Mateusz Brand MD Hemoglobin (Bld) [Mass/Vol] 13.3 g/dL Normal 11.9-15.1 [facility] Comment on above: Performed By: #### C TJ CG #### [address] [place] [id number] Automotive Metalsmith: Mateusz Brand MD Immature granulocytes/100 WBC (Bld) 0 % Normal 0 [facility] Comment on above: Performed By: #### C TJ CG #### [address] [place], [facility]83 [employer] Metalsmith: Mateusz Brand MD Lymphocytes (Bld) [#/Vol] 3.03 10*3/uL Normal 1.10-3.70 [facility] Comment on above: Performed By: #### C TJ, BHCG #### [address] [place] [id number] [employer] Metalsmith: Mateusz Brand MD Lymphocytes/100 WBC (Bld) 28 % Normal 24-43 [facility] Comment on above: Performed By: #### C TJ, BHCG #### [address] [place], [place] [address] [employer] Metalsmith: Mateusz Brand MD MCH (RBC) [Entitic mass] 28.6 pg Normal 25.2-33.5 [facility] Comment on above: Performed By: #### C TJ, BHCG #### [address] [place] [id number] [employer] Metalsmith: Mateusz Brand MD MCHC (RBC) [Mass/Vol] 35.2 g/dL High 28.4-34.8 [facility] Comment on above: Performed By: #### C TJ [facility] #### [address] [place] [address] Automotive Metalsmith: Mateusz Brand MD MCV (RBC) [Entitic vol] 81.3 fL Low 82.6-102.9 [facility] Comment on above: Performed By: #### C [facility]J [facility] #### [address] [place], [facility] [employer] Met[employer]: Mateusz Brand MD Monocytes (Bld) [#/Vol] 0.60 10*3/uL Normal 0.10-1.20 [facility] Comment on above: Performed By: #### C TJ [facility] #### [address] [place], [place] [address] [employer] Metalsmith: Mateusz Brand MD Monocytes/100 WBC (Bld) 6 % Normal 3-12 [facility] Comment on above: Performed By: #### C TJ [facility] #### [address] [place], [facility]83 [employer] Metalsmith: Mateusz Brand MD Neutrophil (Seg) 64 % Normal 36-65 [facility] Comment on above: Performed By: #### C TJ [facility] #### [address] [place], [facility] [employer] Metalsmith: Mateusz Brand MD NRBC Automated 0.0 per 100 WBC Normal 0.0 [facility] Comment on above: Performed By: #### C TJ [facility] #### [address] [place], [place] [id number] Automotive Metalsmith: Mateusz Brand MD Platelet mean volume (Bld) [Entitic vol] 10.6 fL Normal 8.1-13.5 [facility] Comment on above: Performed By: #### C TJ, CG #### [facility] [address] [place], [place] [id number] Automotive Metalsmith: Mateusz Brand MD Platelets (Bld) [#/Vol] 231 10*3/uL Normal 138-453 [facility] Comment on above: Performed By: #### C TJ, BHCG #### [facility] [address] [place], [place] [id number] [employer]otive Metalsmith: Mateusz Brand MD RBC (Bld) [#/Vol] 4.65 10*6/uL Normal 3.95-5.11 [facility] Comment on above: Performed By: #### C TJ BHCG #### [facility] [address] [place], [place] [address] Autom[employer] Metalsmith: Mateusz Brand MD WBC (Bld) [#/Vol] 10.9 10*3/uL Normal 3.5-11.3 [facility] Comment on above: Performed By: #### C TJ CG #### [facility] [address] [place], [place] [id number] Automotive Metalsmith: Mateusz Brand MD HCG, Quanton 03-24-2023 HCG, Quant <1.0 Normal <5 [facility] Comment on above: Result Comment: Non-preg premeno <=5 Postmeno <=8 Male <=3 If HCG results do not concur with clinical observations, additional testing to confirm results is recommended. Performed By: #### C TJ BHCG #### [facility] [address] [place] [address] Automotive Metalsmith: Mateusz Brand MD HCG, ,Urineon 01-20 Beta HCG ( test) Ql (U) Negative Normal NEG [facility] Comment on above: Result Comment: Spec imens with hCG levels near the threshold of the test (25 mIU/mL) may give a negative or indeterminate result. In such cases, another test should be performed with a new specimen in 48-72 hours. If early is suspected clinically in this setting, correlation with quantitative serum b-hCG level is suggested. [employer] [facility] has confirmed the use of plasma for this test. This has not been cleared or approved by the U.S. Food and Drug Administration. The FDA has determined that such clearance is not necessary. Performed By: #### U HCG #### [address] [place] [address] Automotive Metalsmith: Mateusz Brand MD OPERATIVE REPORTon OPERATIVE REPORT [address] [address] OPERATIVE REPORT PATIENT NAME: ESTEFANIA FLOREZ : 1995 MED REC NO: [id number] ROOM: ACCOUNT NO: [id number] ADMIT DATE: 01/20/2023 PROVIDER: Vickie Nichols MD [...] cervix in a graduated fashion to #14 German with Adeel dilators. Then, the hysteroscope was [...] good condition. VICKIE NICHOLS MD BIBIANA/[id number] Doc#: [id number] CC: Normal [facility] Cytologyon 01-01-2023 Cytology (NOTE) Path Number: [id number] DIAGNOSIS Imaged ThinPrep Pap - Cervical (1 [...] Abnormal Clinical History Intrauterine device Z01.419 Routine sand filler exam without abnormal findings High risk HPV DNA testing is requested if the diagnosis is abnormal Processing Lab: [place] [id number] Interpretation performed at [address] [address] This Pap Test has been evaluated with [...] GYNECOLOGIC CYTOLOGY REPORT Patient [facility]: [facility]: [id number] [facility] [employer] [facility] ANATOMIC PATHOLOGY [address] [place] [address]. [place], [place] [address] Normal [facility] C-Reactive Proteinon 022 CRP [Mass/Vol] mg/L 0 - 5 mg/L [facility] [employer] [facility] CBC with Auto Differentialon 12-16-2021 Absolute Eos # 0.09 [facility] [employer] Absolute Immature Granulocyte 0.04 [facility] [employer] Absolute Lymph # 2.98 [facility] [employer] Absolute Alger # 0.51 [facility] [employer] Basophils (Bld) [#/Vol] 0.04 10*3/uL [facility] Basophils/100 WBC (Bld) 0 % 0 - 2 % [facility] Eosinophils/100 WBC (Bld) 1 % 1 - 4 % [facility] Hematocrit (Bld) [Volume fraction] 39.6 % 36.3 - 47.1 % [facility] Hemoglobin (Bld) [Mass/Vol] 13.1 g/dL 11.9 - 15.1 g/dL [facility] Immature granulocytes/100 WBC (Bld) 0 % 0 [facility] Lymphocytes/100 WBC (Bld) 33 % 24 - 43 % [facility] MCH (RBC) [Entitic mass] 28.2 pg 25.2 - 33.5 pg [facility] MCHC (RBC) [Mass/Vol] 33.1 g/dL 28.4 - 34.8 g/dL [facility] MCV (RBC) [Entitic vol] 85.3 fL 82.6 - 102.9 fL [facility] Monocytes/100 WBC (Bld) 6 % 3 - 12 % [facility] NRBC Automated 0.0 0.0 per 100 WBC [facility] Platelet distribution width (Bld) [Ratio] 12.0 % 11.8 - 14.4 % [facility] Platelet mean volume (Bld) [Entitic vol] 11.1 fL 8.1 - 13.5 fL [facility] Platelets (Bld) [#/Vol] 214 10*3/uL [facility] RBC (Bld) [#/Vol] 4.64 10*6/uL 3.95 - 5.1 1 m/uL [facility] Segmented neutrophils/100 WBC (Bld) 60 % 36 - 65 % [facility] Segs Absolute 5.49 [facility] WBC (Bld) [#/Vol] 9.2 10*3/uL [facility] Rheumatoid Factoron 12-17-19 22 Rheumatoid Factor <10 NINF [facility] Sedimentation Rateon 022 Sed Rate 5 [facility] 404 Found! [facility] 404 Found! Uric Acidon 12-16-2021 Urate [Mass/Vol] 4.2 mg/dL 2.4 - 5.7 mg/dL [employer] [facility] 404 Found! Basic Metabolic Panel w/ Ref yossi to MGOrdered By: Donny Hatfield on 10-15-2020 Anion gap [Moles/Vol] 13 mmol/L 9 - 17 mmol/L [employer] Phone: Calcium [Mass/Vol] 9.6 mg/dL 8.6 - 10. 4 mg/dL [employer] Phone: Chloride [Moles/Vol] 105 mmol/L 98 - 10 7 mmol/L [employer] Phone: CO2 [Moles/Vol] 22 mmol/L 20 - 31 mmol/L [employer] Phone: Creatinine [Mass/Vol] 0.62 mg/dL 0.50 - 0.90 mg/dL [employer] Phone: GFR >60 >60 mL/min [employer] Phone: GFR Non- >60 >60 mL/min [employer] Phone: Glucose [Mass/Vol] 110 mg/dL High 70 - 99 mg/dL [employer] Phone: Interpretation and review of laboratory results Abnormal [employer] Phone: Potassium [Moles/Vol] 3.5 mmol/L Low 3.7 - 5.3 mmol/L [employer] Phone: Sodium [Moles/Vol] 140 mmol/L 135 - 144 mmol/L [employer] Phone: Urea nitrogen (BldV) [Mass/Vol] 12 mg/dL 6 - 20 mg/dL [employer] Phone: Urea nitrogen/Creatinine (Bld) [Mass ratio] 19 [employer] Phone: [employer] Work Phone: CBC Auto DifferentialOrdered By: Donny Hatfield on 10-15-2020 Absolute Eos # 0.19 [employer] [facility] Work Phone: Absolute Immature Granulocyte 0.06 [employer] Work Phone: Absolute Lymph # 2.50 [employer] [facility] Work Phone: Absolute Alger # 0.75 [employer] [facility] Work Phone: Basophils (Bld) [#/Vol] 0.04 10*3/uL [employer] Work Phone: Basophils/100 WBC (Bld) 0 % 0 - 2 % [employer] Phone: Differential Type NOT REPORTED [employer] Phone: Eosinophils/100 WBC (Bld) 1 % 1 - 4 % [employer] Phone: Hematocrit (Bld) [Volume fraction] 42.1 % 36.3 - 47.1 % [employer] Phone: Hemoglobin.gastrointes tinal spec 1 Ql (Stl) 14.0 g/dL 11.9 - 15.1 g/dL [employer] Phone: Immature granulocytes/100 WBC (Bld) 0 % 0 [employer] Phone: Interpretation and review of laboratory results Abnormal [employer] Phone: Lymphocytes/100 WBC (Bld) 14 % Low 24 - 43 % [employer] Phone: MCH (RBC) [Entitic mass] 28.1 pg 25.2 - 33.5 pg [employer] Phone: MCHC (RBC) [Mass/Vol] 33.3 g/dL 28.4 - 34.8 g/dL [employer] Phone: MCV (RBC) [Entitic vol] 84.4 fL 82.6 - 102.9 fL [employer] Phone: Monocytes/100 WBC (Bld) 4 % 3 - 12 % [employer] Phone: NRBC Automated 0.0 0.0 per 100 WBC [employer] Phone: Platelet distribution width (Bld) [Ratio] 11.9 % 11.8 - 14.4 % [employer] Phone: Platelet Estimate NOT REPORTED [employer] Phone: Platelet mean volume (Bld) [Entitic vol] 10.7 fL 8.1 - 13.5 fL [employer] Phone: Platelets (Bld) [#/Vol] 220 10*3/uL [employer] Phone: RBC (Bld) [#/Vol] 4.99 10*6/uL 3.95 - 5.1 1 m/uL [employer] Phone: RBC (Bld) [#/Vol] NOT REPORTED [employer] Phone: Segmented neutrophils/100 WBC (Bld) 81 % High 36 - 65 % [employer] Phone: Segs Absolute 14.20 High [employer] Work Phone: WBC (Bld) [#/Vol] 17.7 10*3/uL High [facility] Work Phone: WBC (Bld) [#/Vol] NOT REPORTED [employer] Phone: [employer] Phone: CT ABDOMEN PELVIS W IV CONTR AST Additional Contrast? NoneOrdered By: Donny Hatfield on 10-15-2020 1. Marked hepatic steatosis. 2. Hepatomegaly. 3. Mild colonic diverticulosis without evidence of diverticulitis. [employer] Phone: EXAMINATION: CT OF T HE ABDOMEN [...] PROVIDED HISTORY: abd pain TECHNOLOGIST PROVIDED HISTORY: [facility] pain Decision Support Exception - unselect [...] subcutaneous soft tissues are unremarkable in appearance. [employer] Work Phone: Jean Marie, [facility] Incoming Radiant Results From [employer] - 10/15/2020 1:48 AM EDT EXAMINATION: CT [...] PROVIDED HISTORY: abd pain TECHNOLOGIST PROVIDED HISTORY: [facility] pain Decision Support Exception - unselect [...] Mild colonic diverticulosis without evidence of diverticulitis. [employer] Phone: [employer] Phone: HCG Qualitative, SerumOrdere d By: Donny Hatfield on 10-15-2020 hCG Qual Negative NEGATIVE [employer] Phone: Comment on above: Specimens with hCG l evels near the threshold of the test (25 mIU/mL) may give a negative or indeterminate result. In such cases, another test should be performed with a new specimen in 48-72 hours. If early is suspected clinically in this setting, correlation with quantitative serum b-hCG level is suggested. [employer] has confirmed the use of plasma for this test. This has not been cleared or approved by the U.S. Food and Drug Administration. The FDA has determined that such clearance is not necessary. [employer] Phone: Hepatic Function PanelOrdere d By: Donny Hatfield on 10-15-2020 Albumin [Mass/Vol] 4.6 g/dL 3.5 - 5.2 g/dL [employer] Phone: Albumin/Globulin [Mass ratio] 1.6 {ratio} [employer] Phone: ALP (Bld) [Catalytic activity/Vol] 59 U/L 35 - 104 U/L [employer] Phone: ALT [Catalytic activity/Vol] 38 U/L High 5 - 33 U/L [employer] Phone: AST [Catalytic activity/Vol] 24 U/L <32 [employer] Phone: Bilirubin [Mass/Vol] 0.48 mg/dL 0.3 - 1 .2 mg/dL [employer] Phone: Bilirubin, Indirect CANNOT BE CALCULATED 0.00 - 1.00 mg/dL [employer] Phone: Bilirubin.indirect [Mass/Vol] mg/dL <0.31 mg/dL [employer] Phone: Free PSA/Total PSA [Mass fraction] 7.4 g/dL 6.4 - 8.3 g/dL [employer] Phone: Globulin NOT REPORTED 1.5 - 3.8 g/dL [employer] Phone: Interpretation and review of laboratory results Abnormal [employer] Phone: Laboratory - Chemistry and C hemistry - challengeOrdered By: Donny Hatfield on 10-15-2020 GFR/1.73 sq M.predicted MDRD (S/P/Bld) [Vol rate/Area] [employer] Phone: Comment on above: Average GFR for 20-2 9 years old: 116 mL/min/1.73sq m Chronic Kidney Disease: <60 mL/min/1.73sq m Kidney failure: <15 mL/min/1.73sq m eGFR calculated using average adult body mass. Additional eGFR calculator available at: http://www.Plaid.Sweet Shop/multiple_crcl_2012.htm Stage 1: Some kidney damage normal GFR Stage 2: Mild kidney damage GFR 60-89 Stage 3: Moderate kidney damage GFR 30-59 Stage 4: Severe kidney damage GFR 15-29 Stage 5: Severe kidney damage GFR <15 ESRD - chronic treatment by dialysis or transplant Lactic Acid, PlasmaOrdered B y: Donny Hatfield on 10-15-2020 Lactate [Moles/Vol] 1.1 mmol/L 0.5 - 2. 2 mmol/L [employer] Work Phone: Lactic Acid, Whole Blood NOT REPORTED 0.7 - 2.1 mmol/L [employer] Phone: [employer] Phone: LipaseOrdered By: Cuco on 10-15-2020 Lipase [Catalytic activity/Vol] 27 U/L 13 - 60 U/L [employer] Phone: MagnesiumOrdered By: Donny Hatfield on 10-15-2020 Magnesium [Mass/Vol] 1.8 mg/dL 1.6 - 2 .6 mg/dL [employer] Phone: [employer] Phone: Microscopic UrinalysisOrdere d By: Donny Hatfield on 10-15-2020 - [employer] Work Phone: Amorphous, UA NOT REPORTED None [employer] [facility] Work Phone: Bacteria, UA 1+ Abnormal None [employer] Work Phone: Casts UA NOT REPORTED /LPF [facility] Work Phone: Crystals, UA NOT REPORTED None /HPF [employer] [facility] Work Phone: Epithelial Cells UA 2 TO 5 [employer] Work Phone: Interpretation and review of laboratory results Abnormal [employer] Work Phone: Mucus, UA 1+ Abnormal None [facility] Work Phone: Other Observations UA NOT REPORTED NOT REQ. [facility] Work Phone: RBC, UA 2 TO 5 [facility] Work Phone: Renal Epithelial, UA NOT REPORTED 0 /HPF [facility] Work Phone: Trichomonas, UA NOT REPORTED None [facility] Work Phone: WBC, UA 0 TO 2 [facility] Work Phone: Yeast, UA NOT REPORTED None [facility] Work Phone: [facility] Work Phone: No Panel InformationOrdered By: Donny Hatfield on 10-15-2020 [facility] Work Phone: Urinalysis Reflex to Culture Ordered By: Donny Hatfield on 10-15-2020 Bilirubin Urine Negative NEGATIVE [facility] Work Phone: Color, UA YELLOW YELLOW [facility] Work Phone: Glucose, Ur Negative NEGATIVE [facility] Work Phone: Interpretation and review of laboratory results Abnormal [facility] Work Phone: Ketones Ql (U) Negative NEGATIVE [facility] Work Phone: Leukocyte esterase Test strip Ql (U) Negative NEGATIVE [facility] Work Phone: Nitrite, Urine Negative NEGATIVE [facility] Work Phone: pH, UA 5.0 [facility] Work Phone: Protein, UA Negative NEGATIVE [facility] Work Phone: Specific [place], UA 1.010 [facility] [employer] Work Phone: Turbidity UA CLEAR CLEAR [facility] Work Phone: Urinalysis Comments NOT REPORTED [facility] Work Phone: Urine Hgb 2+ Abnormal NEGATIVE [facility] Phone: Urobilinogen, Urine Normal Normal [facility] Phone: [employer] Work Phone: Comp Metabolic Profon 2020 (cont.) Normal [facility] Comment on above: Result Comment: Aver age GFR for 20-29 years old: 116 mL/min/1.73sq m Chronic Kidney Disease: <60 mL/min/1.73sq m Kidney failure: <15 mL/min/1.73sq m eGFR calculated using average adult body mass. Additional eGFR calculator available at: http://www.Tvinci/multiple_crcl_2011.htm Performed By: #### L IPRF, CDP, CP, TSHX #### [facility] [address] [place] [address] [employer] Metalsmith: Chato Aguirre MD Albumin [Mass/Vol] 4.3 g/dL Normal 3.5-5.2 [facility] Comment on above: Performed By: #### L IPRF, CDP, CP, TSHX #### [employer] [address] [place] [address] [employer] Met[employer]: Chato Aguirre MD Albumin/Glob Ratio 1.3 Normal 1.0-2.5 [facility] Comment on above: Performed By: #### L IPRF, CDP, CP, TSHX #### [facility] [address] [place] [address]803 [employer] Metals[employer]: Chato Aguirre MD Alkaline Phos 49 U/L Normal 35-104 [facility] Comment on above: Performed By: #### L IPRF, CDP, CP, TSHX #### [facility] [address] [place] [address] 94665 [employer] Metals[employer]: Chato Aguirre MD ALT [Catalytic activity/Vol] 36 U/L High 5-33 [facility] Comment on above: Performed By: #### L IPRF, CDP, CP, TSHX #### [facility] [address] [place] [address] 13573 [employer] Metals[employer]: Chato Aguirre MD Anion gap [Moles/Vol] 11 mmol/L Normal 9-17 [facility] Comment on above: Performed By: #### L IPRF, CDP, CP, TSHX #### [facility] [address] [place] [address] 58101 [employer] Met[employer]: Chato Aguirre MD AST [Catalytic activity/Vol] 27 U/L Normal <32 [facility] Comment on above: Performed By: #### L IPRF, CDP, CP, TSHX #### [facility] [address] [place] [address] 70789 [employer] Met[employer]: Chato Aguirre MD Bilirubin [Mass/Vol] 0.34 mg/dL Normal 0.3-1.2 [facility] Comment on above: Performed By: #### L IPRF, CDP, CP, TSHX #### [facility] [address] [place] [address] 26659 [employer]otive Met[employer]: Chato Aguirre MD Calcium [Mass/Vol] 9.5 mg/dL Normal 8.6-10.4 [facility] Comment on above: Performed By: #### L IPRF, CDP, CP, TSHX #### [facility] [address] [place] [address] 89999 [employer]: Chato Aguirre MD Chloride [Moles/Vol] 102 mmol/L Normal 98-107 [facility] Comment on above: Performed By: #### L IPRF, CDP, CP, TSHX #### [facility] [address] [place] [address] 19255 [employer] Met[employer]: Chato Aguirre MD CO2 [Moles/Vol] 22 mmol/L Normal 20-31 [facility] Comment on above: Performed By: #### L IPRF, CDP, CP, TSHX #### [facility] [address] [place] [address] 47277 [employer] Met[employer]: Chato Aguirre MD Creatinine [Mass/Vol] 0.46 mg/dL Low 0.50-0.90 [facility] Comment on above: Performed By: #### L IPRF, CDP, CP, TSHX #### [facility] [address] [place] [address] 21520 [employer]: Chato Aguirre MD GFR, Amer >60 Normal >60 [facility] Comment on above: Performed By: #### L IPRF, CDP, CP, TSHX #### [facility] [address] [place] [address] 28045 [employer] Met[employer]: Chato Aguirre MD GFR,non Amer >60 Normal >60 [facility] Comment on above: Performed By: #### L IPRF, CDP, CP, TSHX #### [facility] [address] [place] [address] 89894 [employer] Met[employer]: Chato Aguirre MD Glucose [Mass/Vol] 92 mg/dL Normal 70-99 [facility] Comment on above: Performed By: #### L IPRF, CDP, CP, TSHX #### [facility] [address] [place] [address] 11469 [employer] Met[employer]mith: Chato Aguirre MD Potassium [Moles/Vol] 4.2 mmol/L Normal 3.7-5.3 [facility] Comment on above: Performed By: #### L IPRF, CDP, CP, TSHX #### [facility] [address] [place] [address] 92618 [employer]otive Metalsmith: Chato Aguirre MD Protein [Mass/Vol] 7.5 g/dL Normal 6.4-8.3 [facility] Comment on above: Performed By: #### L IPRF, CDP, CP, TSHX #### [facility] [address] [place] [address] 58312 [employer] Metalsmith: Chato Aguirre MD Sodium [Moles/Vol] 135 mmol/L Normal 135-144 [facility] Comment on above: Performed By: #### L IPRF, CDP, CP, TSHX #### [facility] [address] [place] [address] 38088 Automotive Metalsmith: Chato Aguirre MD Urea nitrogen [Mass/Vol] 11 mg/dL Normal 6-20 [facility] Comment on above: Performed By: #### L IPRF, CDP, CP, TSHX #### [facility] [address] [place] [address] 56223 Automotive Metalsmith: Chato Aguirre MD Lipid Prof, Fastingon 2020 Cholesterol [Mass/Vol] 186 mg/dL Normal <200 [facility] Comment on above: Result Comment: Cholesterol Guidelines: <200 Desirable 200-240 Borderline >240 Undesirable Performed By: #### L IPRF, CDP, CP, TSHX #### [facility] [address] [place] [address] 37233 Automotive Metalsmith: Chato Aguirre MD Cholesterol in HDL [Mass/Vol] 49 mg/dL Normal >40 [facility] Comment on above: Result Comment: HDL Guidelines: <40 Undesirable 40-59 Borderline >59 Desirable Performed By: #### L IPRF, CDP, CP, TSHX #### [facility] [address] [place] [address] 17844 Automotive Metalsmith: Chato Aguirre MD Cholesterol in LDL [Mass/Vol] 102 mg/dL Normal 0-130 [facility] Comment on above: Result Comment: LDL Guidelines: <100 Desirable 100-129 Near to/above Desirable 130-159 Borderline >159 Undesirable Direct (measured) LDL and calculated LDL are not interchangeable tests. Performed By: #### L IPRF, CDP, CP, TSHX #### [facility] [address] [place] [address] 43608 Automotive Metalsmith: Chato Aguirre MD Cholesterol.total/Chol esterol in HDL [Mass ratio] 3.8 {ratio} Normal <5 [facility] Comment on above: Performed By: #### L IPRF, CDP, CP, TSHX #### [facility] [address] [place] [address] [phone] Automotive Metalsmith: Chato Aguirre MD Triglyceride,Fasting 173 mg/dL High <150 [facility] Comment on above: Result Comment: Triglyceride Guidelines: <150 Desirable 150-199 Borderline 200-499 High >499 Very high Based on AHA Guidelines for fasting triglyceride, February 2012. Performed By: #### L IPRF, CDP, CP, TSHX #### [facility] [place], [place] [phone] Automotive Metalsmith: Chato Aguirre MD TSH w/reflex to FT4on 2020 TSH Qn 3.38 m[IU]/L Normal 0.30-5.00 [facility] Comment on above: Performed By: #### L IPRF, CDP, CP, TSHX #### [facility] [address] [place] [address] [phone] Automotive Metalsmith: Chato Aguirre MD CBC Auto DifferentialOrdered By: 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 on 09-23-2020 Absolute Eos # 0.14 [employer] [facility] Work Phone: Absolute Immature Granulocyte <0.03 [employer] Work Phone: Absolute Lymph # 2.71 [facility] [facility] Work Phone: Absolute Alger # 0.48 [facility] Work Phone: Basophils (Bld) [#/Vol] 0.05 10*3/uL [employer] Work Phone: Basophils/100 WBC (Bld) 1 % 0 - 2 % [employer] Work Phone: Differential Type NOT REPORTED [employer] Work Phone: Eosinophils/100 WBC (Bld) 2 % 1 - 4 % [employer] Phone: Hematocrit (Bld) [Volume fraction] 42.9 % 36.3 - 47.1 % [employer] Phone: Hemoglobin.gastrointes tinal spec 1 Ql (Stl) 13.5 g/dL 11.9 - 15.1 g/dL [employer] Phone: Immature granulocytes/100 WBC (Bld) 0 % 0 [employer] Phone: Lymphocytes/100 WBC (Bld) 30 % 24 - 43 % [employer] Phone: MCH (RBC) [Entitic mass] 27.6 pg 25.2 - 33.5 pg [employer] Phone: MCHC (RBC) [Mass/Vol] 31.5 g/dL 28.4 - 34.8 g/dL [employer] Phone: MCV (RBC) [Entitic vol] 87.6 fL 82.6 - 102.9 fL [employer] Phone: Monocytes/100 WBC (Bld) 5 % 3 - 12 % [employer] Phone: NRBC Automated 0.0 0.0 per 100 WBC [employer] Phone: Platelet distribution width (Bld) [Ratio] 12.4 % 11.8 - 14.4 % [employer] Phone: Platelet Estimate NOT REPORTED [employer] Phone: Platelet mean volume (Bld) [Entitic vol] 11.6 fL 8.1 - 13.5 fL [employer] Phone: Platelets (Bld) [#/Vol] 246 10*3/uL [employer] Phone: RBC (Bld) [#/Vol] 4.90 10*6/uL 3.95 - 5.1 1 m/uL [employer] Work Phone: RBC (Bld) [#/Vol] NOT REPORTED [employer] Phone: Segmented neutrophils/100 WBC (Bld) 62 % 36 - 65 % [employer] Work Phone: Segs Absolute 5.79 [employer] Work Phone: WBC (Bld) [#/Vol] 9.2 10*3/uL [employer] Work Phone: WBC (Bld) [#/Vol] NOT REPORTED [employer] Phone: CBC with Diffon 09-23-2020 Abs. Basophil 0.05 k/uL Normal 0.00-0.20 [facility] Comment on above: Performed By: #### L IPRF, CDP, CP, TSHX #### [facility] [address] [place] [address] Automotive Metalsmith: Chato Aguirre MD Abs.Imm.Granulocyte <0.03 Normal 0.00-0.30 [facility] Comment on above: Performed By: #### L IPRF, CDP, CP, TSHX #### [facility] [address] [place] [address] Automotive Metalsmith: Chato Aguirre MD Abs.Neutrophil (Seg) 5.79 k/uL Normal 1.50-8.10 [facility] Comment on above: Performed By: #### L IPRF, CDP, CP, TSHX #### [facility] [address] [place] [address] 11761 [employer]otive Metalsmith: Chato Aguirre MD Basophils/100 WBC (Bld) 1 % Normal 0-2 [facility] Comment on above: Performed By: #### L IPRF, CDP, CP, TSHX #### [facility] [address] [place] [address] Automotive Metalsmith: Chato Aguirre MD Eosinophils (Bld) [#/Vol] 0.14 10*3/uL Normal 0.00-0.44 [facility] Comment on above: Performed By: #### L IPRF, CDP, CP, TSHX #### [facility] [address] [place] [address] 40324 Automotive Metalsmith: Chato Aguirre MD Eosinophils/100 WBC (Bld) 2 % Normal 1-4 [facility] Comment on above: Performed By: #### L IPRF, CDP, CP, TSHX #### [address] [address] Automotive Metalsmith: Chato Aguirre MD Erythrocyte distribution width (RBC) [Ratio] 12.4 % Normal 11.8-14.4 [facility] Comment on above: Performed By: #### L IPRF, CDP, CP, TSHX #### [address] [address] Automotive Metalsmith: Chato Aguirre MD Hematocrit (Bld) [Volume fraction] 42.9 % Normal 36.3-47.1 [facility] Comment on above: Performed By: #### L IPRF, CDP, CP, TSHX #### [facility] [address] [place] [address] 63442 Automotive Metalsmith: Chato Aguirre MD Hemoglobin (Bld) [Mass/Vol] 13.5 g/dL Normal 11.9-15.1 [facility] Comment on above: Performed By: #### L IPRF, CDP, CP, TSHX #### [facility] [address] [place] [address] 49894 [employer]otive Metalsmith: Chato Aguirre MD Immature granulocytes/100 WBC (Bld) 0 % Normal 0 [facility] Comment on above: Performed By: #### L IPRF, CDP, CP, TSHX #### [address] [address] Automotive Metalsmith: Chato Aguirre MD Lymphocytes (Bld) [#/Vol] 2.71 10*3/uL Normal 1.10-3.70 [facility] Comment on above: Performed By: #### L IPRF, CDP, CP, TSHX #### [address] [address] Automotive Metalsmith: Chato Aguirre MD Lymphocytes/100 WBC (Bld) 30 % Normal 24-43 [facility] Comment on above: Performed By: #### L IPRF, CDP, CP, TSHX #### [place] [address] Automotive Metalsmith: Chaot Aguirre MD MCH (RBC) [Entitic mass] 27.6 pg Normal 25.2-33.5 [facility] Comment on above: Performed By: #### L IPRF, CDP, CP, TSHX #### [place] [address] Automotive Metalsmith: Chato Aguirre MD MCHC (RBC) [Mass/Vol] 31.5 g/dL Normal 28.4-34.8 [facility] Comment on above: Performed By: #### L IPRF, CDP, CP, TSHX #### [place] [address] Automotive Metalsmith: Chato Aguirre MD MCV (RBC) [Entitic vol] 87.6 fL Normal 82.6-102.9 [facility] Comment on above: Performed By: #### L IPRF, CDP, CP, TSHX #### [facility] [address] [place] [address] Automotive Metalsmith: Chato Aguirre MD Monocytes (Bld) [#/Vol] 0.48 10*3/uL Normal 0.10-1.20 [facility] Comment on above: Performed By: #### L IPRF, CDP, CP, TSHX #### [address] [address] Automotive Metalsmith: Chato Aguirre MD Monocytes/100 WBC (Bld) 5 % Normal 3-12 [facility] Comment on above: Performed By: #### L IPRF, CDP, CP, TSHX #### [address] [address] Automotive Metalsmith: Chato Aguirre MD Neutrophil (Seg) 62 % Normal 36-65 [facility] Comment on above: Performed By: #### L IPRF, CDP, CP, TSHX #### [address] [address] Automotive Metalsmith: Chato Aguirre MD NRBC Automated 0.0 per 100 WBC Normal 0.0 [facility] Comment on above: Performed By: #### L IPRF, CDP, CP, TSHX #### [address] [address] Automotive Metalsmith: Chato Aguirre MD Platelet mean volume (Bld) [Entitic vol] 11.6 fL Normal 8.1-13.5 [facility] Comment on above: Performed By: #### L IPRF, CDP, CP, TSHX #### [address] [address] Automotive Metalsmith: Chato Aguirre MD Platelets (Bld) [#/Vol] 246 10*3/uL Normal 138-453 [facility] Comment on above: Performed By: #### L IPRF, CDP, CP, TSHX #### [address] [address] Automotive Metalsmith: Chato Aguirre MD RBC (Bld) [#/Vol] 4.90 10*6/uL Normal 3.95-5.11 [facility] Comment on above: Performed By: #### L IPRF, CDP, CP, TSHX #### [address] [address] Automotive Metalsmith: Chato Aguirre MD WBC (Bld) [#/Vol] 9.2 10*3/uL Normal 3.5-11.3 [facility] Comment on above: Performed By: #### L IPRF, CDP, CP, TSHX #### [address] [address] Automotive Metalsmith: Chato Aguirre MD Auto Diff Performed NOT REPORTED Normal [facility] Comment on above: Performed By: #### L IPRF, CDP, CP, TSHX #### [address] [address] Automotive Metalsmith: Chato Aguirre MD Platelet Estimate NOT REPORTED Normal [facility] Comment on above: Performed By: #### L IPRF, CDP, CP, TSHX #### [address] [address] Automotive Metalsmith: Chato Aguirre MD RBC morphology finding Nom (Bld) NOT REPORTED Normal [facility] Comment on above: Performed By: #### L IPRF, CDP, CP, TSHX #### [address] [address] Automotive Metalsmith: Chato Aguirre MD WBC Morphology NOT REPORTED Normal [facility] Comment on above: Performed By: #### L IPRF, CDP, CP, TSHX #### [facility] [address] [place] [address] Automotive Metalsmith: Chato Aguirre MD Comp Metabolic Profon 2020 BUN/CRE Ratio NOT REPORTED Normal 02-17 [facility] Comment on above: Performed By: #### L IPRF, CDP, CP, TSHX #### [address] [address] Automotive Metalsmith: Chato Aguirre MD Staging: NOT REPORTED Normal [facility] Comment on above: Performed By: #### L IPRF, CDP, CP, TSHX #### [facility] [address] [place] [address] Automotive Metalsmith: Chato Aguirre MD Comprehensive Metabolic Pane lOrdered By: 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 on 09-23-2020 Albumin [Mass/Vol] 4.3 g/dL 3.5 - 5.2 g/dL [employer] Phone: Albumin/Globulin [Mass ratio] 1.3 {ratio} [employer] Phone: ALP (Bld) [Catalytic activity/Vol] 49 U/L 35 - 104 U/L [employer] Phone: ALT [Catalytic activity/Vol] 36 U/L High 5 - 33 U/L [employer] Phone: Anion gap [Moles/Vol] 11 mmol/L 9 - 17 mmol/L [employer] Phone: AST [Catalytic activity/Vol] 27 U/L <32 [employer] Phone: Bilirubin [Mass/Vol] 0.34 mg/dL 0.3 - 1 .2 mg/dL [employer] Phone: Calcium [Mass/Vol] 9.5 mg/dL 8.6 - 10. 4 mg/dL [employer] Phone: Chloride [Moles/Vol] 102 mmol/L 98 - 10 7 mmol/L [employer] Phone: CO2 [Moles/Vol] 22 mmol/L 20 - 31 mmol/L [employer] Phone: Creatinine [Mass/Vol] 0.46 mg/dL Low 0.50 - 0.90 mg/dL [employer] Phone: Free PSA/Total PSA [Mass fraction] 7.5 g/dL 6.4 - 8.3 g/dL [employer] Phone: GFR >60 >60 mL/min [employer] Phone: GFR Non- >60 >60 mL/min [employer] Phone: GFR/1.73 sq M.predicted MDRD (S/P/Bld) [Vol rate/Area] [employer] Phone: Comment on above: Average GFR for 20-2 9 years old: 116 mL/min/1.73sq m Chronic Kidney Disease: <60 mL/min/1.73sq m Kidney failure: <15 mL/min/1.73sq m eGFR calculated using average adult body mass. Additional eGFR calculator available at: http://www.Tvinci/Weeleo_crcl_2012.htm GFR/1.73 sq M.predicted MDRD (S/P/Bld) [Vol rate/Area] NOT REPORTED [employer] Phone: Glucose [Mass/Vol] 92 mg/dL 70 - 99 mg/dL [employer] Phone: Potassium [Moles/Vol] 4.2 mmol/L 3.7 - 5.3 mmol/L [employer] Phone: Sodium [Moles/Vol] 135 mmol/L 135 - 144 mmol/L [employer] Phone: Urea nitrogen (BldV) [Mass/Vol] 11 mg/dL 6 - 20 mg/dL [employer] Phone: Urea nitrogen/Creatinine (Bld) [Mass ratio] NOT REPORTED [employer] Phone: Laboratory - Chemistry and C hemistry - challengeOrdered By: 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 on 09-23-2020 Albumin [Mass/Vol] 4.3 g/dL (3.5-5.2 ) [facility] [employer] [facility] Work Phone: Comment on above: Note: Responsible Ob bartender server: [employer] AUTOFILE ([id number]) ALT [Catalytic activity/Vol] 36 U/L High (5-33 ) [facility] Work Phone: Comment on above: Note: Responsible Ob bartender server: [employer] (3003) Anion gap [Moles/Vol] 11 mmol/L (9-17 ) [facility] Work Phone: Comment on above: Note: Responsible Ob bartender server: [employer] (3003) AST [Catalytic activity/Vol] 27 U/L (<32 ) [facility] Work Phone: Comment on above: Note: Responsible Ob bartender server: [employer] (3003) Bilirubin [Mass/Vol] 0.34 mg/dL (0.3-1.2 ) [facility] Work Phone: Comment on above: Note: Responsible Ob bartender server: [employer] (3003) Calcium [Mass/Vol] 9.5 mg/dL (8.6-10.4 ) [facility] Work Phone: Comment on above: Note: Responsible Ob bartender server: [employer] (3003) Chloride [Moles/Vol] 102 mmol/L (98-107 ) [facility] Work Phone: Comment on above: Note: Responsible Ob bartender server: [employer] (3003) Cholesterol [Mass/Vol] 186 mg/dL (<200 ) [facility] Work Phone: Comment on above: Note: Cholesterol Gu idelines:<200 [id number] Borderline>240 UndesirableResponsible Observer: [employer] (3003) Cholesterol.total/Chol esterol in HDL [Mass ratio] 3.8 {ratio} (<5 ) [facility] Work Phone: Comment on above: Note: Responsible Ob bartender server: [employer] (3003) CO2 [Moles/Vol] 22 mmol/L (20-31 ) [facility] Work Phone: Comment on above: Note: Responsible Ob bartender server: [employer] (3003) Creatinine [Mass/Vol] 0.46 mg/dL Low (0.50- 0.90 ) [facility] Work Phone: Comment on above: Note: Responsible Ob bartender server: ABBIEEV [employer] (3003) Glucose [Mass/Vol] 92 mg/dL (70-99 ) [facility] Work Phone: Comment on above: Note: Responsible Ob bartender server: [employer] (3003) Magnesium [Mass/Vol] 49 mg/dL (>40 ) [facility] Work Phone: Comment on above: Note: HDL Guidelines :<40 Iggkdrxbqft12-10 Borderline>59 DesirableResponsible Observer: SHEA AUTOFILE (3003) Magnesium [Mass/Vol] 102 mg/dL (0-130 ) [facility] Work Phone: Comment on above: Note: LDL Guidelines :<100 Qdxqpmijs083-119 Near to/above [id number] Borderline>159 UndesirableDirect (measured) LDL and calculated LDL are not interchangeable tests.Responsible Observer: [employer] (3003) Magnesium [Mass/Vol] 173 mg/dL High (<150 ) [facility] Work Phone: Comment on above: Note: Triglyceride G uidelines:<150 [id number] [id number] High>499 Very highBased on AHA Guidelines for fasting triglyceride, February 2012.Responsible Observer: [employer]OFILE (3003) Potassium [Moles/Vol] 4.2 mmol/L (3.7-5.3 ) a [facility] Work Phone: Comment on above: Note: Responsible Ob bartender server: ABBIEEV [employer] (3003) Protein [Mass/Vol] 7.5 g/dL (6.4-8.3 ) [facility] Work Phone: Comment on above: Note: Responsible Ob bartender server: ABBIEEV [employer] (3003) Sodium [Moles/Vol] 135 mmol/L (135-144 ) [facility] Work Phone: Comment on above: Note: Responsible Ob bartender server: [employer] (3003) Urea nitrogen [Mass/Vol] 11 mg/dL (6-20 ) [facility] Work Phone: Comment on above: Note: Responsible Ob bartender server: [employer] (3003) Laboratory - Hematology and Cell countsOrdered By: 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 on 09-23-2020 Basophils/100 WBC (Bld) 1 % (0-2 ) [facility] Work Phone: Comment on above: Note: Responsible Ob bartender server: [employer] (3018) Eosinophils (Bld) [#/Vol] 0.14 10*3/uL (0.00-0.44 ) [facility] Work Phone: Comment on above: Note: Responsible Ob bartender server: [employer] (3018) Eosinophils/100 WBC (Bld) 2 % (1-4 ) [facility] Work Phone: Comment on above: Note: Responsible Ob bartender server: [employer] (3018) Erythrocyte distribution width (RBC) [Ratio] 12.4 % (11.8-14.4 ) [facility] Work Phone: Comment on above: Note: Responsible Ob bartender server: [employer] (3018) Hematocrit (Bld) [Volume fraction] 42.9 % (36.3-47.1 ) [facility] Work Phone: Comment on above: Note: Responsible Ob bartender server: [employer] (3018) Hemoglobin (Bld) [Mass/Vol] 13.5 g/dL (11.9-15.1 ) [facility] Work Phone: Comment on above: Note: Responsible Ob bartender server: [employer] (3018) Immature granulocytes/100 WBC (Bld) 0 % (0 ) [facility] Work Phone: Comment on above: Note: Responsible Ob bartender server: [employer] (3018) Lymphocytes (Bld) [#/Vol] 2.71 10*3/uL (1.10-3.70 ) [facility] Work Phone: Comment on above: Note: Responsible Ob bartender server: [employer] (3018) Lymphocytes/100 WBC (Bld) 30 % (24-43 ) [facility] Work Phone: Comment on above: Note: Responsible Ob bartender server: [employer] (3018) MCH (RBC) [Entitic mass] 27.6 pg (25.2-33.5 ) [facility] Work Phone: Comment on above: Note: Responsible Ob bartender server: [employer] (3018) MCHC (RBC) [Mass/Vol] 31.5 g/dL (28.4- 34.8 ) [facility] Work Phone: Comment on above: Note: Responsible Ob bartender server: [employer] (3018) MCV (RBC) [Entitic vol] 87.6 fL (82.6-102.9 ) [facility] Work Phone: Comment on above: Note: Responsible Ob bartender server: [employer] (3018) Monocytes (Bld) [#/Vol] 0.48 10*3/uL (0.10-1.20 ) [facility] Work Phone: Comment on above: Note: Responsible Ob bartender server: [employer] (3018) Monocytes/100 WBC (Bld) 5 % (3-12 ) [facility] Work Phone: Comment on above: Note: Responsible Ob bartender server: [employer] (3018) Platelet mean volume (Bld) [Entitic vol] 11.6 fL (8.1-13.5 ) [facility] Work Phone: Comment on above: Note: Responsible Ob bartender server: [employer] (3018) Platelets (Bld) [#/Vol] 246 10*3/uL (138-453 ) [facility] Work Phone: Comment on above: Note: Responsible Ob bartender server: [employer] (3018) RBC (Bld) [#/Vol] 4.90 10*6/uL (3.95-5.11 ) [facility] Work Phone: Comment on above: Note: Responsible Ob bartender server: [employer] (3017) RBC morphology finding Nom (Bld) NOT REPORTED [facility] Work Phone: Segmented neutrophils/100 WBC (Bld) 62 % (36-65 ) [facility] Work Phone: Comment on above: Note: Responsible Ob bartender server: [employer] (3017) WBC (Bld) [#/Vol] 9.2 10*3/uL (3.5-11.3 ) [facility] Work Phone: Comment on above: Note: Responsible Ob bartender server: [employer] (301) Lipid Prof, Fastingon 2020 Cholesterol,VLDL NOT REPORTED Normal 06-29 [facility] Comment on above: Performed By: #### L IPRF, CDP, CP, TSHX #### [facility] [place] [address] Automotive Metalsmith: hCato Aguirre MD Lipid, FastingOrdered By: Zandra Sharpe on 09-23-2020 Cholesterol [Mass/Vol] 186 mg/dL <200 [employer] Work Phone: Comment on above: Cholesterol Guidelines: <200 Desirable 200-240 Borderline >240 Undesirable Cholesterol in HDL [Mass/Vol] 49 mg/dL >40 [employer] Phone: Comment on above: HDL Guidelines: <40 Undesirable 40-59 Borderline >59 Desirable Cholesterol in LDL [Mass/Vol] 102 mg/dL 0 - 130 mg/dL [employer] Phone: Comment on above: LDL Guidelines: <100 Desirable 100-129 Near to/above Desirable 130-159 Borderline >159 Undesirable Direct (measured) LDL and calculated LDL are not interchangeable tests. Cholesterol in VLDL [Mass/Vol] NOT REPORTED High 1 - 30 mg/dL [facility] Phone: Cholesterol.total/Chol esterol in HDL [Mass ratio] 3.8 {ratio} <[address] [facility] Phone: Triglyceride, Fasting 173 mg/dL High <150 [facility] [employer] Work Phone: Comment on above: Triglyceride Guidelines: <150 Desirable 150-199 Borderline 200-499 High >499 Very high Based on AHA Guidelines for fasting triglyceride, February 2012. No Panel InformationOrdered By: 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 on 09-23-2020 Interpretation and review of laboratory results Abnormal [facility] Work Phone: (cont.) See Note [facility] Work Phone: Comment on above: Note: Average GFR fo r 20-29 years old:116 mL/min/1.73sq mChronic Kidney Disease:<60 mL/min/1.73sq mKidney failure:<15 mL/min/1.73sq meGFR calculated using average adult body mass. Additional eGFR calculatoravailable at:http://www.Tvinci/multiple_crcl_2011.htmResponsible Observer: CEEV AUTOFILE ([id number]) Abs. Basophil 0.05 k/uL (0.00-0.20 ) [facility] Work Phone: Comment on above: Note: Responsible Ob bartender server: XNV AUTOFILE ([id number]) Abs.Imm.Granulocyte <0.03 k/uL (0.00-0. 30 ) [facility] Work Phone: Comment on above: Note: Responsible Ob bartender server: XNV AUTOFILE ([id number]) Abs.Neutrophil (Seg) 5.79 k/uL (1.50-8 .10 ) [facility] Work Phone: Comment on above: Note: Responsible Ob bartender server: XNV AUTOFILE (0000) Albumin/Glob Ratio 1.3 (1.0-2.5 ) [facility] Work Phone: Comment on above: Note: Responsible Ob bartender server: CEEV AUTOFILE ([id number]) Alkaline Phos 49 U/L (35-104 ) [facility] Work Phone: Comment on above: Note: Responsible Ob bartender server: CEEV AUTOFILE ([id number]) Auto Diff Performed NOT REPORTED [facility] Work Phone: BUN/CRE Ratio NOT REPORTED (9-20 ) [facility] Work Phone: Cholesterol,VLDL NOT REPORTED mg/dL (1-30 ) [facility] Work Phone: GFR, Amer >60 mL/min (>60 ) [facility] Work Phone: Comment on above: Note: Responsible Ob bartender server: CEEV AUTOFILE ([id number]) GFR,non Amer >60 mL/min (>60 ) [facility] Work Phone: Comment on above: Note: Responsible Ob bartender server: CEEV AUTOFILE ([id number]) NRBC Automated 0.0 per_100_WBC (0.0 ) [facility] Work Phone: Comment on above: Note: Responsible Ob bartender server: XNV AUTOFILE ([id number]) Platelet Estimate NOT REPORTED [facility] Work Phone: Reported Physicians See Note [facility] Work Phone: Comment on above: Note: Reported Physi cians:Ordering: Cotton, AimeeAttending: Cotton, AimeeReferring: Cotton, Miguel Staging: NOT REPORTED [facility] Work Phone: Thyroid Stim. Horm. 3.38 mIU/L (0.30-5. 00 ) [facility] Work Phone: Comment on above: Note: Responsible Ob bartender server: CEEV AUTOFILE ([id number]) WBC Morphology NOT REPORTED [facility] Work Phone: TSH with ReflexOrdered By: Kamryn Sharpe on 09-23-2020 TSH Qn 3.38 m[IU]/L [facility] Work Phone: APTTon 04-08-2020 aPTT Coag (Bld) [Time] 25.2 s Me [place], [place] Comment on above: IV Heparin Therapy Range: 62.0-94.0 Brain Natriuretic Peptideon 04-08-2020 Natriuretic peptide B (Bld) [Mass/Vol] pg/mL <300 pg/mL [place] Comment on above: Pro-BNP results ayse ot be compared to BNP results. Natriuretic peptide B (Bld) [Mass/Vol] Pro-BNP Reference Range: [place], [place] Comment on above: Rule Out: <300 Weaver Zone: Age <50 300-450 Age 50-75 300-900 Age >75 300-1800 Usually represents mild to moderate HF but other cardiopulmonary causes cannot be ruled out. Rule In: Age <50 >450 Age 50-75 >900 Age >75 >1800 CBCon 04-08-2020 Erythrocyte distribution width (RBC) [Ratio] 11.9 % 11.8 - 14.4 % [place] Hematocrit (Bld) [Volume fraction] 37.9 % 36.3 - 47.1 % [place] Hemoglobin (Bld) [Mass/Vol] 12.5 g/dL 11.9 - 15.1 g/dL [place] MCH (RBC) [Entitic mass] 27.8 pg 25.2 - 33.5 pg [place] MCHC (RBC) [Mass/Vol] 33.0 g/dL 28.4 - 34.8 g/dL [place] MCV (RBC) [Entitic vol] 84.2 fL 82.6 - 102.9 fL [place] Platelet mean volume (Bld) [Entitic vol] 10.9 fL 8.1 - 13.5 fL [place] Platelets (Bld) [#/Vol] 184 10*3/uL [place] RBC (Bld) [#/Vol] 4.50 10*6/uL 3.95 - 5.1 1 m/uL [place] WBC (Bld) [#/Vol] 7.8 10*3/uL [place] WBC (Bld) [#/Vol] 0.0 10*3/uL 0.0 per 10 0 WBC [place] COVID-19on 04-08-2020 Interpretation and review of laboratory results Abnormal [place] SARS-CoV-2, Rapid DETECTED Abnormal Not Detected [place] Comment on above: Rapid NAAT: The [...] this assay. Fact sheet for Healthcare Providers: https://www.fda.gov/media/086231/download Fact sheet for Patients: https://www.fda.gov/media/066137/download Methodology: Isothermal Nucleic Acid Amplification Results reported to the appropriate Health Department Source .NASOPHARYNGEAL SWAB [place], [place] CT CHEST PULMONARY EMBOLISM W CONTRASTon 04-08-2020 Unremarkable appeara nce of the chest with no evidence of pulmonary embolism and clear lungs. Incidentally noted hepatic fatty infiltration. [place] EXAMINATION: CTA OF THE CHEST 04/08/2020 [...] No significant osseous or soft tissue abnormality. [place] Jean Marie, Mhpn Incoming Radiant Results From [facility] - 04/08/2020 4:12 PM EST EXAMINATION: CTA [...] clear lungs. Incidentally noted hepatic fatty infiltration. [place] Comprehensive Metabolic Pane fermin 04-08-2020 Albumin [Mass/Vol] 4.1 g/dL 3.5 - 5.2 g/dL [place] Albumin/Globulin [Mass ratio] 1.4 {ratio} [place] ALP [Catalytic activity/Vol] 62 U/L 35 - 104 U/L [place] ALT [Catalytic activity/Vol] 19 U/L 5 - 33 U/L [place] Anion gap [Moles/Vol] 10 mmol/L 9 - 17 mmol/L [place] AST [Catalytic activity/Vol] 20 U/L <32 [place] Bilirubin Ql (U) 0.48 mg/dL 0.3 - 1.2 mg/dL [place] Bun/Cre Ratio 23 High [place] Calcium [Mass/Vol] 8.9 mg/dL 8.6 - 10. 4 mg/dL [place] Chloride [Moles/Vol] 102 mmol/L 98 - 10 7 mmol/L [place] CO2 [Moles/Vol] 23 mmol/L 20 - 31 mmol/L [place] Creatinine [Mass/Vol] 0.47 mg/dL Low 0.5 - 0.9 mg/dL [place] GFR >60 >60 mL/min [place] GFR Non- >60 >60 mL/min [place] Glucose [Mass/Vol] 88 mg/dL 70 - 99 mg/dL [place] Interpretation and review of laboratory results Abnormal [place] Potassium [Moles/Vol] 3.7 mmol/L 3.7 - 5.3 mmol/L [place] Protein [Mass/Vol] 7.1 g/dL 6.4 - 8.3 g/dL [place] Sodium [Moles/Vol] 135 mmol/L 135 - 144 mmol/L [place] Urea nitrogen [Mass/Vol] 11 mg/dL 6 - 20 mg/dL [place] Metabolic Panelon 04-08-2020 GFR/1.73 sq M predicted among non-blacks MDRD (S/P/Bld) [Vol rate/Area] [place] Comment on above: Stage 1: Some [...] body mass. Additional eGFR calculator available at: http://www.Plaid.Sweet Shop/multiple_crcl_2012.htm Otheron 04-08-2020 SARS-CoV-2 [place], [place] , Urineon 0 Beta HCG ( test) Ql (U) Negative NEGATIVE [place] Comment on above: Specimens with hCG l evels near the threshold of the test (25 mIU/mL) may give a negative or indeterminate result. In such cases, another test should be performed with a new specimen in 48-72 hours. If early is suspected clinically in this setting, correlation with quantitative serum b-hCG level is suggested. Fe[facility] has confirmed the use of plasma for this test. This has not been cleared or approved by the U.S. Food and Drug Administration. The FDA has determined that such clearance is not necessary. Protime-INRon 04-08-2020 INR Coag (PPP) [Relative time] 1.0 {INR} [place] Comment on above: Non-therapeutic Range: INR = 0.9-1.2 Therapeutic Range: Moderate Anticoagulant Intensity: INR = 2.0-3.0 High Anticoagulant Intensity: INR = 2.5-3.5 PT Coag (PPP) [Time] 13.2 s [place] Troponinon 04-08-2020 Troponin I.cardiac [Mass/Vol] NOT REPORTED [place] Troponin T.cardiac [Mass/Vol] NOT REPORTED <0.03 ng/mL [place] Troponin, High Sensitivity <6 0 - 14 ng/L [place] Comment on above: High Sensitivity Troponin values cannot be compared with other Troponin methodologies. Patients with high levels of Biotin oral intake (i.e >5mg/day) may have falsely decreased Troponin levels. Samples collected within 8 hours of biotin intake may require additional information for diagnosis. CBC Auto Differentialon 0 Basophils (Bld) [#/Vol] 0.05 10*3/uL [facility] Phone: Basophils/100 WBC (Bld) 1 % 0 - 2 % [facility] Phone: Differential Type NOT REPORTED [facility] Phone: Eosinophils (Bld) [#/Vol] 0.15 10*3/uL [facility] Phone: Eosinophils/100 WBC (Bld) 1 % 1 - 4 % [facility] Phone: Erythrocyte distribution width (RBC) [Ratio] 12.1 % 11.8 - 14.4 % [facility] Phone: Hematocrit (Bld) [Volume fraction] 44.5 % 36.3 - 47.1 % [facility] Phone: Hemoglobin (Bld) [Mass/Vol] 14.0 g/dL 11.9 - 15.1 g/dL [facility] Phone: Immature granulocytes (Bld) [#/Vol] 0 % 0 [facility] Phone: Immature granulocytes (Bld) [#/Vol] 10*3/uL [facility] Phone: Interpretation and review of laboratory results Abnormal [facility] Phone: Lymphocytes (Bld) [#/Vol] 2.83 10*3/uL [facility] Phone: Lymphocytes/100 WBC (Bld) 27 % 24 - 43 % [facility] Phone: MCH (RBC) [Entitic mass] 27.6 pg 25.2 - 33.5 pg [facility] Phone: MCHC (RBC) [Mass/Vol] 31.5 g/dL 28.4 - 34.8 g/dL [facility] Phone: MCV (RBC) [Entitic vol] 87.6 fL 82.6 - 102.9 fL [facility] Phone: Monocytes (Bld) [#/Vol] 0.52 10*3/uL [facility] Phone: Monocytes/100 WBC (Bld) 5 % 3 - 12 % [facility] Phone: Platelet mean volume (Bld) [Entitic vol] 12.0 fL 8.1 - 13.5 fL [facility] Work Phone: Platelets (Bld) [#/Vol] NOT REPORTED [facility] Work Phone: Platelets (Bld) [#/Vol] 241 10*3/uL [facility] Work Phone: RBC (Bld) [#/Vol] 5.08 10*6/uL 3.95 - 5.1 1 m/uL [facility] Work Phone: RBC morphology finding Nom (Bld) NOT REPORTED [facility] Work Phone: Segmented neutrophils/100 WBC (Bld) 66 % High 36 - 65 % [facility] Work Phone: Segs Absolute 7.04 [facility] Work Phone: WBC (Bld) [#/Vol] 10.6 10*3/uL [facility] Work Phone: WBC (Bld) [#/Vol] 0.0 10*3/uL 0.0 per 10 0 WBC [facility] Work Phone: WBC Morphology NOT REPORTED [facility] Work Phone: [facility]acon 07-06-2019 Cholesterol [Mass/Vol] 198 mg/dL (<200) [facility] Work Phone: Comment on above: Note: Cholesterol Gu idelines:<200 [id number] Borderline>240 UndesirableResponsible Observer: CCEV AUTOFILE ([id number]) Comprehensive Metabolic Pane fermin 07-06-2019 Albumin [Mass/Vol] 4.5 g/dL 3.5 - 5.2 g/dL [facility] Work Phone: Albumin/Globulin [Mass ratio] 1.4 {ratio} [facility] Work Phone: ALP [Catalytic activity/Vol] 62 U/L 35 - 104 U/L [facility] Work Phone: ALT [Catalytic activity/Vol] 39 U/L High 5 - 33 U/L [facility] Phone: Anion gap [Moles/Vol] 16 mmol/L 9 - 17 mmol/L [facility] Phone: AST [Catalytic activity/Vol] 32 U/L High <32 [facility] Phone: Bilirubin Ql (U) 0.25 mg/dL Low 0.3 - 1.2 mg/dL [facility] Phone: Bun/Cre Ratio NOT REPORTED [facility] [facility] Work Phone: Calcium [Mass/Vol] 9.8 mg/dL 8.6 - 10. 4 mg/dL [facility] Phone: Chloride [Moles/Vol] 103 mmol/L 98 - 10 7 mmol/L [facility] Phone: CO2 [Moles/Vol] 19 mmol/L Low 20 - 31 mmol/L [facility] Phone: Creatinine [Mass/Vol] 0.51 mg/dL 0.5 - 0.9 mg/dL [facility] Phone: GFR >60 >60 mL/min [employer] Phone: GFR Non- >60 >60 mL/min [facility] Phone: GFR/1.73 sq M predicted among non-blacks MDRD (S/P/Bld) [Vol rate/Area] [facility] Phone: Comment on above: Average GFR for 20-2 9 years old: 116 mL/min/1.73sq m Chronic Kidney Disease: <60 mL/min/1.73sq m Kidney failure: <15 mL/min/1.73sq m eGFR calculated using average adult body mass. Additional eGFR calculator available at: http://www.Plaid.Sweet Shop/multiple_crcl_2012.htm GFR/1.73 sq M predicted among non-blacks MDRD (S/P/Bld) [Vol rate/Area] NOT REPORTED [facility] Phone: Glucose [Mass/Vol] 89 mg/dL 70 - 99 mg/dL [facility] Phone: Interpretation and review of laboratory results Abnormal [facility] Phone: Potassium [Moles/Vol] 4.6 mmol/L 3.7 - 5.3 mmol/L [facility] Phone: Protein [Mass/Vol] 7.8 g/dL 6.4 - 8.3 g/dL [facility] Phone: Sodium [Moles/Vol] 138 mmol/L 135 - 144 mmol/L [facility] Phone: Urea nitrogen [Mass/Vol] 14 mg/dL 6 - 20 mg/dL [facility] Phone: Hematologyon 07-06-2019 Basophils/100 WBC (Bld) 1 % (0-2) [facility] [employer] [facility] Work Phone: Comment on above: Note: Responsible Ob bartender server: XNV AUTOFILE ([id number]) Eosinophils (Bld) [#/Vol] 0.15 10*3/uL (0.00-0.44) [facility] Work Phone: Comment on above: Note: Responsible Ob bartender server: XNV AUTOFILE ([id number]) Eosinophils/100 WBC (Bld) 1 % (1-4) [facility] Work Phone: Comment on above: Note: Responsible Ob bartender server: XNV AUTOFILE ([id number]) Hematocrit (Bld) [Volume fraction] 44.5 % (36.3-47.1) [facility] Work Phone: Comment on above: Note: Responsible Ob bartender server: XNV AUTOFILE ([id number]) Hemoglobin (Bld) [Mass/Vol] 14.0 g/dL (11.9-15.1) [facility] Work Phone: Comment on above: Note: Responsible Ob bartender server: XNV AUTOFILE ([id number]) Lymphocytes (Bld) [#/Vol] 2.83 10*3/uL (1.10-3.70) [facility] Work Phone: [phone] Comment on above: Note: Responsible Ob bartender server: XNV AUTOFILE ([id number]) Lymphocytes/100 WBC (Bld) 27 % (24-43) [facility] Work Phone: [phone] Comment on above: Note: Responsible Ob bartender server: XNV AUTOFILE ([id number]) MCH (RBC) [Entitic mass] 27.6 pg (25.2-33.5) [facility] Work Phone: [phone] Comment on above: Note: Responsible Ob bartender server: XNV AUTOFILE ([id number]) MCV (RBC) [Entitic vol] 87.6 fL (82.6-102.9 ) [facility] Work Phone: [phone] Comment on above: Note: Responsible Ob bartender server: XNV AUTOFILE ([id number]) Monocytes (Bld) [#/Vol] 0.52 10*3/uL (0.10-1.20) [facility] Work Phone: [phone] Comment on above: Note: Responsible Ob bartender server: XNV AUTOFILE ([id number]) Monocytes/100 WBC (Bld) 5 % (3-12) [facility] Work Phone: [phone] Comment on above: Note: Responsible Ob bartender server: XNV AUTOFILE ([id number]) Platelets (Bld) [#/Vol] NOT REPORTED [facility] Work Phone: [phone] Platelets (Bld) [#/Vol] 241 10*3/uL (138-453) [facility] Work Phone: Comment on above: Note: Responsible Ob bartender server: XNV AUTOFILE ([id number]) RBC (Bld) [#/Vol] 5.08 10*6/uL (3.95-5.11) [facility] Work Phone: Comment on above: Note: Responsible Ob bartender server: XNV AUTOFILE ([id number]) RBC morphology finding Nom (Bld) NOT REPORTED [facility] Work Phone: WBC (Bld) [#/Vol] 0.0 per_100_WBC (0.0) [facility] Work Phone: Comment on above: Note: Responsible Ob bartender server: XNV AUTOFILE ([id number]) WBC (Bld) [#/Vol] 10.6 10*3/uL (3.5-11.3) [facility] Work Phone: Comment on above: Note: Responsible Ob bartender server: XNV AUTOFILE (0105) Lipid, Fastingon 07-06-2019 Cholesterol [Mass/Vol] 198 mg/dL <200 [facility]: Comment on above: Cholesterol Guidelines: <200 Desirable 200-240 Borderline >240 Undesirable Cholesterol in HDL [Mass/Vol] 53 mg/dL >40 [facility] Phone: Comment on above: HDL Guidelines: <40 Undesirable 40-59 Borderline >59 Desirable Cholesterol in LDL [Mass/Vol] 118 mg/dL 0 - 130 mg/dL [facility] Phone: Comment on above: LDL Guidelines: <100 Desirable 100-129 Near to/above Desirable 130-159 Borderline >159 Undesirable Direct (measured) LDL and calculated LDL are not interchangeable tests. Cholesterol in VLDL [Mass/Vol] NOT REPORTED 1 - 30 mg/dL [facility] Phone: Cholesterol.total/Chol esterol in HDL [Mass ratio] 3.7 {ratio} <[address] [facility] Phone: Triglyceride, Fasting 135 mg/dL <150 [facility] Phone: Comment on above: Triglyceride Guidelines: <150 Desirable 150-199 Borderline 200-499 High >499 Very high Based on AHA Guidelines for fasting triglyceride, February 2012. Metabolic Panelon 07-06-2019 Albumin [Mass/Vol] 4.5 g/dL (3.5-5.2) [facility] Work Phone: Comment on above: Note: Responsible Ob bartender server: CCEV AUTOFILE ([id number]) ALT [Catalytic activity/Vol] 39 U/L High (5-33) [facility] Work Phone: Comment on above: Note: Responsible Ob bartender server: CCEV AUTOFILE ([id number]) Anion gap [Moles/Vol] 16 mmol/L (9-17) [facility] Work Phone: Comment on above: Note: Responsible Ob bartender server: CCEV AUTOFILE ([id number]) AST [Catalytic activity/Vol] 32 U/L High (<32) [facility] Work Phone: Comment on above: Note: Responsible Ob bartender server: CCEV AUTOFILE (3002) Bilirubin [Mass/Vol] 0.25 mg/dL Low (0.3-1.2) [facility] Work Phone: Comment on above: Note: Responsible Ob bartender server: CCEV AUTOFILE (3002) Calcium [Mass/Vol] 9.8 mg/dL (8.6-10.4) [facility] Work Phone: Comment on above: Note: Responsible Ob bartender server: CCEV AUTOFILE (3002) Chloride [Moles/Vol] 103 mmol/L (98-107) [facility] Work Phone: Comment on above: Note: Responsible Ob bartender server: CCEV AUTOFILE (3002) CO2 [Moles/Vol] 19 mmol/L Low (20-31) [facility] Work Phone: Comment on above: Note: Responsible Ob bartender server: CCEV AUTOFILE (3002) Creatinine [Mass/Vol] 0.51 mg/dL (0.50-0.90) [facility] Work Phone: Comment on above: Note: Responsible Ob bartender server: CCEV AUTOFILE (3002) Glucose [Mass/Vol] 89 mg/dL (70-99) [facility] Work Phone: Comment on above: Note: Responsible Ob bartender server: CCEV AUTOFILE (3002) Potassium [Moles/Vol] 4.6 mmol/L (3.7-5.3) [facility] Work Phone: Comment on above: Note: Responsible Ob bartender server: CCEV AUTOFILE (3002) Protein [Mass/Vol] 7.8 g/dL (6.4-8.3) [facility] Work Phone: Comment on above: Note: Responsible Ob bartender server: CCEV AUTOFILE (3002) Sodium [Moles/Vol] 138 mmol/L (135-144) [facility] Work Phone: Comment on above: Note: Responsible Ob bartender server: CCEV AUTOFILE (3002) Urea nitrogen [Mass/Vol] 14 mg/dL (6-20) [facility] Work Phone: Comment on above: Note: Responsible Ob bartender server: CCEV AUTOFILE ([id number]) Otheron 07-06-2019 (cont.) See Note [facility] Work Phone: Comment on above: Note: Average GFR fo r 20-29 years old:116 mL/min/1.73sq mChronic Kidney Disease:<60 mL/min/1.73sq mKidney failure:<15 mL/min/1.73sq meGFR calculated using average adult body mass. Additional eGFR calculatoravailable at:http://www.Plaid.Sweet Shop/multiple_crcl_2012.htmResponsible Observer: CCEV AUTOFILE (3002) Abs. Basophil 0.05 k/uL (0.00-0.20) [facility] Work Phone: Comment on above: Note: Responsible Ob bartender server: XNV AUTOFILE ([id number]) Abs.Imm.Granulocyte <0.03 k/uL (0.00-0.30) [facility] Work Phone: Comment on above: Note: Responsible Ob bartender server: XNV AUTOFILE ([id number]) Abs.Neutrophil (Seg) 7.04 k/uL (1.50-8.10) a [facility] Work Phone: Comment on above: Note: Responsible Ob bartender server: XNV AUTOFILE ([id number]) Albumin/Glob Ratio 1.4 (1.0-2.5) [facility] Work Phone: [phone] Comment on above: Note: Responsible Ob bartender server: CCEV AUTOFILE (3002) Alkaline Phos 62 U/L (35-104) [facility] Work Phone: [phone] Comment on above: Note: Responsible Ob bartender server: CCEV AUTOFILE (3002) Auto Diff Performed NOT REPORTED [facility] Work Phone: [phone] BUN/CRE Ratio NOT REPORTED (9-20) [facility] Work Phone: [phone] Cholesterol,HDL 53 mg/dL (>40) [facility] Work Phone: [phone] Comment on above: Note: HDL Guidelines :<40 [id number] Borderline>59 DesirableResponsible Observer: CCEV AUTOFILE (3002) Cholesterol,LDL 118 mg/dL (0-130) [facility] Work Phone: Comment on above: Note: LDL Guidelines :<100 [id number] Near to/above [id number] Borderline>159 UndesirableDirect (measured) LDL and calculated LDL are not interchangeable tests.Responsible Observer: CCEV AUTOFILE (3002) Cholesterol,VLDL NOT REPORTED mg/dL (1-30) [facility] Work Phone: [phone] Cholesterol.total/Chol esterol in HDL [Mass ratio] 3.7 {ratio} (<5) [facility] Work Phone: Comment on above: Note: Responsible Ob bartender server: CCEV AUTOFILE (3002) Erythrocyte distribution width (RBC) [Ratio] 12.1 % (11.8-14.4) [facility] Work Phone: Comment on above: Note: Responsible Ob bartender server: XNV AUTOFILE ([id number]) Free Insulin 34 uIU/mL High (3-19) [facility] Work Phone: Comment on above: Note: Responsible Ob bartender server: LAB [facility] (0603) GFR, Amer >60 mL/min (>60) [facility] Work Phone: [phone] Comment on above: Note: Responsible Ob bartender server: CCEV AUTOFILE (3002) GFR,non Amer >60 mL/min (>60) [facility] Work Phone: [phone] Comment on above: Note: Responsible Ob bartender server: CCEV AUTOFILE (3002) Immature granulocytes (Bld) [#/Vol] 0 % (0) [facility] Work Phone: [phone] Comment on above: Note: Responsible Ob bartender server: XNV AUTOFILE ([id number]) MCHC (RBC) [Mass/Vol] 31.5 g/dL (28.4-34.8) [facility] Work Phone: [phone] Comment on above: Note: Responsible Ob bartender server: XNV AUTOFILE ([id number]) Performing Lab: see note [facility] Work Phone: [phone] Comment on above: Note: [facility] [address] [facility] [address] Note: [facility] [address] [facility] [id number] Platelet mean volume (Bld) [Entitic vol] 12.0 fL (8.1-13.5) [facility] Work Phone: Comment on above: Note: Responsible Ob bartender server: XNV AUTOFILE (469) Reported Physicians See Note [facility] Work Phone: [phone] Comment on above: Note: Reported Physi cians:Ordering: Allyson Floyd AAttending: No FloydthiaReferring: Allyson Floyd Segmented neutrophils/100 WBC (Bld) 66 % High (36-65) [facility] Work Phone: Comment on above: Note: Responsible Ob bartender server: XNV AUTOFILE (508) Staging: NOT REPORTED [facility] Work Phone: [phone] Thyroid Stim. Horm. 4.15 mIU/L (0.30-5.00) [facility] Work Phone: Comment on above: Note: Responsible Ob bartender server: CCEV AUTOFILE ([id number]) Thyroxine, Free 1.21 ng/dL (0.93-1.70) [facility] Work Phone: [phone] Comment on above: Note: Responsible Ob bartender server: CCEV AUTOFILE ([id number]) Total Insulin 46 uIU/mL High (3-19) [facility] Work Phone: Comment on above: Note: (NOTE)INTERPRE TIVE INFORMATION: Insulin, Free and TotalThis test reacts on a nearly equimolar basis with the analogsinsulin aspart, insulin glargine, and insulin lispro. Insulindetemir exhibits approximately 50 percent cross-reactivity. Testreactivity with insulin glulisine is negligible (<3 percent). Toconvert to pmol/L, multiply uIU/mL by 6.0. Reference intervalsestablished for fasting specimens.Performed by [facility],[address] [place] [id number] [address], [place] Xiong MD, Lab. DirectorResponsible Observer: LAB KIERAN ([id number]) Triglyceride,Fasting 135 mg/dL (<150) [facility] Work Phone: [phone] Comment on above: Note: Triglyceride G uidelines:<150 [id number] [id number] High>499 Very highBased on AHA Guidelines for fasting triglyceride, February 2012.Responsible Observer: CCEV AUTOFILE ([id number]) Triiodothyronine T3 150 ng/dL (80-200) [facility] Work Phone: Comment on above: Note: Responsible Ob bartender server: CEEV AUTOFILE ([id number]) WBC Morphology NOT REPORTED [facility] Work Phone: T3on 07-06-2019 T3, Total 150 ng/dL 80 - 200 ng/dL [facility] Phone: T4, Freeon 07-06-2019 Thyroxine, Free 1.21 ng/dL 0.93 - 1.7 ng/dL [facility] Phone: TSH without Reflexon 020 TSH Qn 4.15 m[IU]/L [facility] Work Phone: US NON OB TRANSVAGINALon Satisfactory IUD position. RECOMMENDATIONS: No follow-up imaging is recommended. Reference: US BPRs based on Radiology 2010 Jan;256(3):943-54; CT/MR BPRs based on J Am Joanne Radiol 2013;10:675-681. [place] EXAMINATION: PELVIC ULTRASOUND 02/02/2019 TECHNIQUE: Transvaginal [...] Free Fluid: No evidence of free fluid. [place], [place] Jean Marie, pn Incoming Radiant Results From [employer] - 02/02/2019 8:44 AM EDT EXAMINATION: PELVIC [...] based on J Am Joanne Radiol 2013;10:[id number]. [facility] ([facility] ) ----- ESTEFANIA HERRERA ([id number]) 1995 F Date Time Provider Department 08/21/18 12:00 PM MIGUEL LOVELACE (DIANELYS) [facility] During your visit today, we recorded the following information about you: Temperature Pulse Respiration Blood pressure 97.6 degrees 99/minute 16/minute 136/81 Weight 109.8 kg Miguel Lovelace APRN.CNP 08/21/2018 12:46 PM Signed Subjective The history is provided by the patient. No spanish medical interpreter was used. Cough This is a [...] is a safe and effective decongestant 3. Isanti Nasal Hinckley may offer relief of nasal and head [...] help open respiratory and sinus passages. - Isanti Nasal Hinckley may offer relief of nasal and head [...] get worse. Thank you for coming to [facility] today. I appreciate your confidence in choosing the [facility] for your medical care. Miguel Lovelace APRN.[facility] [address] [facility] [address] Referring Provider: SELF [200] Allergies As [...] is a safe and effective decongestant 3. Isanti Nasal Hinckley may offer relief of nasal and head [...] help open respiratory and sinus passages. - Isanti Nasal Hinckley may offer relief of nasal and head [...] Thank you for coming to [facility] today. I appreciate your confidence in choosing the [facility] for your medical care. Miguel Lovelace APRN.MANAGER PLAY [facility] [address] [facility] [phone] Prescriptions ordered this encounter Disp Refills Start [...] Status:Closed by MIGUEL LOVELACE CNP on 08/21/18 [facility] PROGRESSon 08-21-2018 Protein mass conc HNO ID: [id number] Author: Miguel Hall) Radu Service: ? Author Type: Nurse Practitioner Type: Progress Notes Filed: 08/21/2018 12:46 PM Note Text: Subjective The history is provided by the patient. No spanish medical interpreter was used. Cough This is a [...] 3-5 days or get worse Miguel Lovelace APRN.MANAGER PLAY [facility] CNCOon 12-22-2017 CNCO Letter Text Erica Velazquez MD [facility] [address] [place] [address] Estefania Herrera December 22, 2017 Estefania Herrera [address] [facility] [address] Dear Ms. Herrera, It was noted that you did not keep your scheduled appointment on 12-22-17. It is important to contact the office in advance if you are unable to keep your appointment so that it is available for other patients. Your medical care is important to us. Please call our office to reschedule an appointment. Sincerely, Erica Velazquez MD [facility] Consult Reporton 01-05-2017 Consult Report Patient: JITENDRA HERRERA Age: 21 years Sex: Female : 1995 Associated Diagnoses: None Author: KAREN ACKERMAN DPM, RES [facility] DepartmentReason for Consult: Active Problems (1)Crush [...] discussed with attending physician, Dr. Jaime Ackerman [id number] ically Signed by: KAREN ACKERMAN DPM, RES on 01/04/2017 13:59 EDTElectronically Co-Signed by: Cecelia ACKERMAN DPM, RES 01/04/2017 14:37 EDTElectronically Co-Signed by: Rene REYES DPM 01/05/2017 18:28 EDT Normal [facility] APTTon 01-04-2017 aPTT 29.9 Second(s) Normal [facility] Comment on above: Result Comment: VERI FIED by Discern Expert. Performed By: #### 1 01150, 0789394, 563683, 049264, 328271, 251078 ####[facility] [address] [place] [address] Medical Director: David Doe MD aPTT 25.9 Second(s) Normal 25.0-36.0 [facility] Comment on above: Performed By: #### 1 68039, 5029231, 566137, 686920, 835790, 906972 ####[facility] Rhjojxok68705 [place] [address] Medical Director: David Doe MD AUTO DIFFon 01-04-2017 Basophils Auto #/vol (Bld) 0.04 x1000 Normal 0.00-0.20 [facility] Comment on above: Performed By: #### 1 84448, 6704176, 874111, 770029, 940338, 315218 ####[facility] [address]qe[address] [place] [id number] Medical Director: David Doe MD Basos % 0.5 % Normal [facility] Comment on above: Performed By: #### 1 99914, 4453302, 636201, 936171, 075888, 837628 ####[facility] Qiapshsg85839 [place] [address] Medical Director: David Doe MD Eos Count 0.10 x1000 Normal 0.00-0.50 [facility] Comment on above: Performed By: #### 1 59215, 8951181, 445775, 261992, 761587, 674620 ####[facility] Yjmgqhkf47225 [place] [address] Medical Director: David Doe MD Eosinophils/100 leukocytes 1.0 % Normal [facility] Comment on above: Performed By: #### 1 03567, 7061424, 839506, 206982, 598309, 632851 ####[facility] Pbzrxymp57563 [place], [place] [id number]) [phone] Director: David Doe MD Lymphocytes 2.84 x1000 Normal 1.20-4.80 [facility] Comment on above: Performed By: #### 1 86406, 4285948, 393746, 610420, 306456, 390776 ####[facility] Vxilweww66696 [place] [address] Medical Director: David Doe MD Lymphocytes/100 leukocytes 29.4 % Normal [facility] Comment on above: Performed By: #### 1 63853, 1229032, 580386, 291143, 068683, 284371 ####[facility] Fshodpna70585 [place] [address] Medical Director: David Doe MD Alger Count 0.68 x1000 Normal 0.10-1.00 [facility] Comment on above: Performed By: #### 1 73610, 7518987, 521758, 314836, 154250, 851646 ####[facility] Qllxepgh91602 [place] [address] Medical Director: David Doe MD Monocytes/100 leukocytes 7.0 % Normal [facility] Comment on above: Performed By: #### 1 44680, 2121003, 994344, 604925, 739511, 896095 ####[facility] Lgjzaetl81171 [place] [address] Medical Director: David Doe MD Neutrophils 5.98 x1000 Normal 1.40-8.80 [facility] Comment on above: Performed By: #### 1 67827, 2789108, 245023, 203278, 307636, 588828 ####[facility] Uwbpwpep11750 [place] [address] Medical Director: David Doe MD Neutrophils/100 WBC Auto (Bld) 62.0 % Normal [facility] Comment on above: Performed By: #### 1 77718, 7459780, 118107, 974208, 472556, 843570 ####[facility] Prbohipr82440 [place] [address] Medical Director: David Doe MD COMPMETAon 01-04-2017 Globulin 4.0 g/dL Normal [facility] Comment on above: Performed By: #### 1 83114, 8021631, 243431, 332054, 960074, 587425 ####[facility] Mgoprzfz93903 [place] [address] Medical Director: David Doe MD Osmolality 277 mOsm/kg Normal 275-295 [facility] Comment on above: Performed By: #### 1 56742, 4133746, 510760, 654710, 614351, 822347 ####[facility] Qiymnzwo91558 [place], [place] [id number]) [phone] Director: David Doe MD eGFR (non-black) mL/min/{1.73_m2} Normal So [facility] Comment on above: Result Comment: Afri can Citizen Of [place] GFR Calc Performed By: #### 1 96282, 3561893, 214886, 444255, 266468, 591412 ####[facility] Ajuhjyxo71607 [place] [address] Medical Director: David Doe MD Result Comment: Non GFR CalcMedical judgement is necessary to interpret GFR. The calculated GFR may not accurately reflect renal status in patients >70 years, women, acutely ill hospitalized patients and patients with acute renal failure or known renal disease.Note:Creatinine clearance (not GFR) should be used for drug dosing. Albumin/Globulin Ratio 0.8 {ratio} Normal [facility] Comment on above: Performed By: #### 1 52183, 5312110, 152549, 184109, 399812, 192720 ####[facility] Eixeayvz42416 [place] [address] Medical Director: David Doe MD BUN/Creatinine Ratio 17.6 mg/mg Normal [facility] Comment on above: Performed By: #### 1 88167, 9258351, 176566, 715049, 265507, 218940 ####[facility] Ggvqchgp49771 [place] [address] Medical Director: David Doe MD Alk Phos 61 unit/L Normal 45-117 [facility] Comment on above: Performed By: #### 1 65638, 1504639, 639201, 365259, 361739, 939723 ####[facility] Asipljpr36791 [place] [address] Medical Director: David Doe MD Bilirubin (total) 0.41 mg/dL Normal 0.20-1.00 [facility] Comment on above: Performed By: #### 1 83359, 3974106, 626413, 356544, 009119, 612308 ####[facility] Rlrrgpay19445 [place] [address] Medical Director: David Doe MD Protein 7.4 g/dL Normal 6.0-8.5 [facility] Comment on above: Performed By: #### 1 86450, 0374269, 288806, 622652, 081112, 639142 ####[facility] Rzbujhzm28172 [place] [address] Medical Director: David Doe MD GPT 16 unit/L Normal 13-56 [facility] Comment on above: Result Comment: Mariposa puncture should occur prior to sulfasalazine and/or sulfapyridine administration due to the potential for falsely depressed results.Baseline assay values before administration of sulfasalazine and sulfapyridine therapy would not be affected. Performed By: #### 1 69655, 6191215, 996573, 295422, 006393, 643885 ####[facility] Ghgeihnf71627 [place] [address] Medical Director: David Doe MD Creatinine 0.7 mg/dL Normal 0.6-1.0 [facility] Comment on above: Performed By: #### 1 54962, 1682112, 759810, 950132, 010793, 275766 ####[facility] Zcflxtfn70989 [place] [address] Medical Director: David Doe MD GOT 14 unit/L Low 15-37 [facility] Comment on above: Result Comment: Mariposa puncture should occur prior to sulfasalazine and/or sulfapyridine administration due to the potential for falsely depressed results.Baseline assay values before administration of sulfasalazine and sulfapyridine therapy would not be affected. Performed By: #### 1 76264, 1772944, 417654, 629296, 869947, 524956 ####[facility] Lfjazmam79218 [place] [address] Medical Director: David Doe MD Urea nitrogen 13 mg/dL Normal 10-20 [facility] Comment on above: Performed By: #### 1 29340, 4279512, 567340, 734012, 017515, 012305 ####[facility] Mhaxbxnc88676 [place] [address] Medical Director: David Doe MD Glucose mass conc 86 mg/dL Normal 72-100 [facility] Comment on above: Result Comment: Mariposa puncture should occur prior to sulfasalazine administration due to the potential for falsely depressed results. Venipuncture should occur prior to sulfapyridine administration due to the potential falsely elevated results.Baseline assay values before administration of sulfasalazine and sulfapyridine therapy would not be affected. Performed By: #### 1 89055, 3812684, 020493, 221285, 356703, 950654 ####[facility] Kfzkxdlo06355 [place] [address] Medical Director: David Doe MD Albumin 3.4 g/dL Normal 3.4-5.0 [facility] Comment on above: Performed By: #### 1 21990, 3490635, 818114, 937378, 777192, 948627 ####[facility] Xqwoqnbu23656 [place] [address] Medical Director: David Doe MD CO2 19.0 mmol/L Low 21.0-32.0 [facility] Comment on above: Performed By: #### 1 17480, 9114790, 445068, 094837, 427204, 206804 ####[facility] Jpuqmkoa59355 [place] [address] Medical Director: David Doe MD Calcium 9.0 mg/dL Normal 8.5-10.5 [facility] Comment on above: Performed By: #### 1 30671, 3173411, 363428, 234034, 487587, 693671 ####[facility] Mmxymotb23699 [place] [address] Medical Director: David Doe MD Potassium molar conc 3.7 mmol/L Normal 3.5-5.1 [facility] Comment on above: Performed By: #### 1 05176, 4909629, 868983, 530084, 658091, 047989 ####[facility] Mxtyubwh96217 [place] [address] Medical Director: David Doe MD Sodium 139 mmol/L Normal 135-145 [facility] Comment on above: Performed By: #### 1 21931, 3796665, 481744, 515127, 834411, 300638 ####[facility] Bjmdyqeu26613 [place] [address] Medical Director: David Doe MD Chloride 108 mmol/L Normal 100-109 [facility] Comment on above: Performed By: #### 1 60039, 1780344, 879548, 190180, 742007, 004831 ####[facility] Fvnkvhnt62407 [place] [address] Medical Director: David Doe MD CT LOWER [...] Damir SMITH MD Out: 01/04/17 12:59:57 Normal [facility] ED Physician Reporton 2016 ED [...] Plan Diagnosis Crush injury of right foot ([id number] S97.81XA, Working, Medical) Plan Condition: Stable. Disposition: ED Discharge to Home was placed.(01/04/2017 13:39:31 EDT, Constant Order). Prescriptions: Launch prescriptions Pharmacy:Percocet 5/325 ([id number]) oral tablet (Prescribe): 1 tabs, ORAL, [id number], PRN: for pain, 24 tabs, 0 Refill(s)doxycycline hyclate 100 mg oral tablet (Prescribe): 100 mg = 1 tabs, ORAL, BID, for 10 days, 20 tabs, 0 Refill(s). Patient was given the following educational materials: Cryotherapy, Siiv-lm-Fwfy, Compartment Syndrome of the Foot, Compartment Syndrome of the Foot, Cryotherapy, Wztd-no-Todf. Follow up with: [facility]IAN Within [...] by: Selene GALVAN MD 01/04/2017 14:19 Normal [facility] ED Progress Noteon 7 ED [...] medicatedsig other at bedsidepodiatry coming to see [id number] ASSUMED CARE OF PT, REPORT RECEIVED FROM [...] a little dizzy after trying crutches. Normal [facility] HCGon 01-04-2017 HCG, Qual <1.0 Normal [facility] Comment on above: Result Comment: 0 - 3 Negative3 - 50 Inconclusive>50 Positive Performed By: #### 1 89544, 1994965, 782971, 475847, 193742, 536207 ####[facility] Jtbhvqws18882 [place] [address] Medical Director: David Doe MD HEMOon 01-04-2017 DIFF? No Normal [facility] Comment on above: Performed By: #### 1 50970, 9370408, 206616, 338692, 971566, 439360 ####[facility] Qjiaymuu93591 [place] [address] Medical Director: David Doe MD Erythrocyte distribution width Auto Ratio (RBC) 13.3 % Normal 11.5-14.5 [facility] Comment on above: Performed By: #### 1 40248, 3205716, 733744, 561443, 425424, 205999 ####[facility] Gpvpgxmz73421 [place], [place] [address]) [phone] Director: David Doe MD Erythrocytes (RBC) 4.80 x10 Normal 4.20-5.40 [facility] Comment on above: Result Comment: Note : RBC morphology is normal unless otherwise stated. Evaluation performed only if differential is requested. Performed By: #### 1 55372, 5464949, 762525, 342007, 449493, 642253 ####[facility] Osbwhvij44618 [place], [place] [address]) [phone] Director: David Doe MD Hematocrit (HCT) 39.0 % Normal 36.0-46.0 [facility] Comment on above: Performed By: #### 1 41608, 9156446, 433187, 286488, 225282, 154372 ####[facility] Htoadwjr01684 [place], [place] [address]) [phone] Director: David Doe MD Hemoglobin mass conc (Bld) 13.1 g/dL Normal 12.0-16.0 [facility] Comment on above: Performed By: #### 1 38806, 3610343, 020261, 787380, 192106, 615244 ####[facility] Ffrurxky73443 [place], [place] [address]) [phone] Director: David Doe MD MCH 27.3 pg Normal 27.0-34.0 [facility] Comment on above: Performed By: #### 1 60064, 4051866, 443207, 085812, 473807, 040894 ####[facility] Bibvwici84882 [place], [place] [address]) [phone] Director: David Doe MD MCHC mass conc (RBC) 33.6 g/dL Normal 32.0-37.0 [facility] Comment on above: Performed By: #### 1 86622, 4001789, 692314, 636165, 823786, 976541 ####[facility] Sbvkpwjd16844 [place] [address] Medical Director: David Doe MD MCV 81.3 fL Normal 80.0-100.0 [facility] Comment on above: Performed By: #### 1 91204, 0132213, 512215, 611563, 220319, 470372 ####[facility] Dqonogcw37030 [place] [address] Medical Director: David Doe MD Nucleated RBC% 0 /100WC Normal [facility] Comment on above: Performed By: #### 1 05343, 1322778, 275662, 662048, 650214, 626234 ####[facility] Yqjronwq83089 [place] [address] Medical Director: David Doe MD Platelet mean volume (PMV) 9.4 fL Normal 7.4-10.4 [facility] Comment on above: Performed By: #### 1 58163, 5459611, 819745, 123713, 273300, 768809 ####[facility] Mcpvvbxy19224 [place] [address] Medical Director: David Doe MD Platelets 238 x1000 Normal 150-450 [facility] Comment on above: Performed By: #### 1 38719, 0038056, 255751, 382304, 556629, 283450 ####[facility] Rgypvfpg05229 [place] [address] Medical Director: David Doe MD WBC (Leukocytes) 9.6 10*3/uL Normal [facility] Comment on above: Performed By: #### 1 81157, 7117196, 900439, 012897, 127663, 607644 ####[facility] Xrwbbqza15764 [place] [address] Medical Director: David Doe MD WBC (Leukocytes) 9.6 x10 Normal 4.5-11.0 [facility] Comment on above: Performed By: #### 1 90063, 8999126, 200130, 833507, 315641, 269852 ####[facility] Ajuwjklu28084 [place], [place] [address]) [phone] Director: David Doe MD PT INRon 01-04-2017 Protime Median 11.1 Second(s) Normal [facility] Comment on above: Result Comment: VERI FIED by Discern Expert. Performed By: #### 1 83444, 0567670, 603699, 941976, 209992, 581585 ####[facility] Vkjwqibd24722 [place], [place] [address]) [phone] Director: David Doe MD INR Coag RelTime (PPP) 1.0 {INR} Normal So [facility] Comment on above: Result Comment: Norm al reference range for INR on patients not on anticoagulant therapy: 0.9-1.1. General therapeutic range for patients on anticoagulant therapy: 2.0-3.5. Performed By: #### 1 89383, 8436213, 429459, 468387, 515887, 191130 ####[facility] Nehaukva87887 [place], [place] [address]) [phone] Director: David Doe MD Protime Patient 11.3 Second(s) Normal 9.8-12.7 [facility] Comment on above: Performed By: #### 1 90531, 3124136, 127586, 258764, 277508, 543931 ####[facility] Rigzqdax71665 [place], [place] [address]) [phone] Director: David Doe MD XR FOOT RIGHT [...] Alberto AGUILAR MD Out: 01/04/17 11:49:07 Normal [facility] Vital Signs Date Time Vital Sign Value Performing Clinician Facility 07-15-2023 11:50-0500 Body mass index (BMI) [Ratio] 36.65 kg/m2 [facility] Work Phone: [facility] 07-15-2023 11:50-0500 Body weight 106.14 kg [facility] Work Phone: [facility] 12-04-2021 10:03-0400 Body height 173.35 cm [facility] 12-04-2021 10:03-0400 Body mass index (BMI) [Ratio] 35.22 kg/m2 [facility] 12-04-2021 10:03-0400 Body surface area Derived from formula 2.26 m2 [facility] 12-04-2021 10:03-0400 Body weight 105.83 kg [facility] 12-04-2021 10:03-0400 Diastolic blood pressure 68 mm[Hg] [facility] 12-04-2021 10:03-0400 Heart rate 68 /min [facility] 12-04-2021 10:03-0400 Systolic blood pressure 116 mm[Hg] Shona Lucio [facility] 10-15-2020 01:15-0400 Diastolic blood pressure 71 mm[Hg] Donny Andes DO Work Phone: [facility] Work Phone: 10-15-2020 01:15-0400 SaO2% (BldA) [Mass fraction] 94 % Donny Andes DO Work Phone: [facility] Work Phone: 10-15-2020 01:15-0400 Systolic blood pressure 117 mm[Hg] Donny Andes DO Work Phone: [facility] Work Phone: 10-14-2020 23:18-0400 Body temperature 97.59 [degF] Donny Andes DO Work Phone: [facility] Work Phone: 10-14-2020 23:18-0400 Heart rate 98 /min Donny Andes DO Work Phone: [facility] Work Phone: 10-14-2020 23:18-0400 Respiratory rate 18 /min Donny Andes DO Work Phone: [facility] Work Phone: 09-23-2020 08:31-0400 Body height 172.72 cm 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 [employer] Work Phone: [employer] [facility] Work Phone: 09-23-2020 08:31-0400 Body mass index (BMI) [Ratio] 40.9 kg/m2 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 [employer] Work Phone: [facility] Work Phone: 09-23-2020 08:31-0400 Body surface area Derived from formula 2.32 m2 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 [employer] Work Phone: [facility] Work Phone: 09-23-2020 08:31-0400 Body temperature 964 [degF] 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 CNP Work Phone: [facility] Work Phone: 09-23-2020 08:31-0400 Body weight 122.02 kg 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 CNP Work Phone: [facility] Work Phone: 09-23-2020 08:31-0400 Diastolic blood pressure 80 mm[Hg] 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 CNP Work Phone: [facility] Work Phone: 09-23-2020 08:31-0400 Heart rate 80 /min 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 CNP Work Phone: [facility] Work Phone: 09-23-2020 08:31-0400 Respiratory rate 18 /min 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 CNP Work Phone: [facility] Work Phone: 09-23-2020 08:31-0400 SaO2% (BldA) [Mass fraction] 98 % 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 CNP Work Phone: [facility] Work Phone: 09-23-2020 08:31-0400 Systolic blood pressure 126 mm[Hg] 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 CNP Work Phone: [facility] Work Phone: 04-08-2020 16:25-0500 Respiratory Rate 16 /min 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 [employer] [facility] [place] 04-08-2020 16:20-0500 Pulse (Heart Rate) 86 /min [facility] [place] [place] 04-08-2020 16:20-0500 Pulse Oximetry 98 % 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 [employer] [facility] , [place] 04-08-2020 16:00-0500 BP Diastolic 66 mm[Hg] [facility] , [place] 04-08-2020 16:00-0500 BP Systolic 121 mm[Hg] [facility] , [place] 04-08-2020 13:23-0500 Body Temperature 98.4 [degF] [facility] [place] 03-19-2020 19:09-0400 BMI (Body Mass Index) 37.3 kg/m2 [facility] Work Phone: 03-19-2020 19:09-0400 Body weight 111.13 kg [facility] Work Phone: 03-19-2020 19:09-0400 BSA (Body Surface Area) 2.23 m2 [facility] Work Phone: 03-19-2020 19:09-0400 Height 172.72 cm [facility] Work Phone: 03-05-2020 08:30-0400 BMI (Body Mass Index) 37.3 kg/m2 [facility] Work Phone: 03-05-2020 08:30-0400 Body Temperature 95.4 [degF] [facility] Work Phone: 03-05-2020 08:30-0400 Body weight 111.13 kg [facility] Work Phone: 03-05-2020 08:30-0400 BP Diastolic 80 mm[Hg] [facility] Work Phone: 03-05-2020 08:30-0400 BP Systolic 120 mm[Hg] [facility] Work Phone: 03-05-2020 08:30-0400 BSA (Body Surface Area) 2.23 m2 [facility] Work Phone: 03-05-2020 08:30-0400 Height 172.72 cm [facility] Work Phone: 03-05-2020 08:30-0400 Pulse (Heart Rate) 74 /min [facility] Work Phone: 03-05-2020 08:30-0400 Pulse Oximetry 99 % [facility] Work Phone: 03-05-2020 08:30-0400 Respiratory Rate 18 /min [facility] Work Phone: 03-05-2020 08:30-0400 SaO2% (BldA) [Mass fraction] 99 % [facility] Work Phone: [facility] Work Phone: 12-05-2019 08:37-0400 BMI (Body Mass Index) 35.4 kg/m2 [facility] Work Phone: 12-05-2019 08:37-0400 Body Temperature 98.8 [degF] [facility] Work Phone: 12-05-2019 08:37-0400 Body weight 105.69 kg [facility] Work Phone: 12-05-2019 08:37-0400 BP Diastolic 72 mm[Hg] [facility] Work Phone: 12-05-2019 08:37-0400 BP Systolic 116 mm[Hg] [facility] Work Phone: 12-05-2019 08:37-0400 BSA (Body Surface Area) 2.18 m2 [facility] Work Phone: 12-05-2019 08:37-0400 Flow Rate 0 L/min [facility] Work Phone: 12-05-2019 08:37-0400 Height 172.72 cm [facility] Work Phone: 12-05-2019 08:37-0400 Inhaled Oxygen Concentration 21 % [facility] Work Phone: 12-05-2019 08:37-0400 Pulse (Heart Rate) 81 /min [facility] Work Phone: 12-05-2019 08:37-0400 Pulse Oximetry 98 % [facility] Work Phone: 12-05-2019 08:37-0400 Respiratory Rate 18 /min [facility] Work Phone: 12-05-2019 08:37-0400 SaO2% (BldA) [Mass fraction] 98 % [facility] Work Phone: [facility] Work Phone: 11-06-2019 09:02-0400 BMI (Body Mass Index) 36.2 kg/m2 [facility] Work Phone: 11-06-2019 09:02-0400 Body Temperature 95.8 [degF] [facility] Work Phone: 11-06-2019 09:02-0400 Body weight 107.96 kg [facility] Work Phone: 11-06-2019 09:02-0400 BP Diastolic 80 mm[Hg] [facility] Work Phone: 11-06-2019 09:02-0400 BP Systolic 110 mm[Hg] [facility] Work Phone: 11-06-2019 09:02-0400 BSA (Body Surface Area) 2.2 m2 [facility] Work Phone: 11-06-2019 09:02-0400 Height 172.72 cm [facility] Work Phone: 11-06-2019 09:02-0400 Pulse (Heart Rate) 94 /min [facility] Work Phone: 11-06-2019 09:02-0400 Pulse Oximetry 98 % [facility] Work Phone: 11-06-2019 09:02-0400 Respiratory Rate 18 /min [facility] Work Phone: 11-06-2019 09:02-0400 SaO2% (BldA) [Mass fraction] 98 % [facility] Work Phone: [facility] Work Phone: 10-12-2019 09:53-0400 BMI (Body Mass Index) 38.2 kg/m2 [facility] Work Phone: 10-12-2019 09:53-0400 Body Temperature 98.7 [degF] [facility] Work Phone: 10-12-2019 09:53-0400 Body weight 113.85 kg [facility] Work Phone: 10-12-2019 09:53-0400 BP Diastolic 82 mm[Hg] [facility] Work Phone: 10-12-2019 09:53-0400 BP Systolic 122 mm[Hg] [facility] Work Phone: 10-12-2019 09:53-0400 BSA (Body Surface Area) 2.25 m2 [facility] Work Phone: 10-12-2019 09:53-0400 Flow Rate 0 L/min [facility] Work Phone: 10-12-2019 09:53-0400 Height 172.72 cm [facility] Work Phone: 10-12-2019 09:53-0400 Inhaled Oxygen Concentration 21 % [facility] Work Phone: 10-12-2019 09:53-0400 Pulse (Heart Rate) 97 /min [facility] Work Phone: 10-12-2019 09:53-0400 Pulse Oximetry 98 % [facility] Work Phone: 10-12-2019 09:53-0400 Respiratory Rate 18 /min [facility] Work Phone: 10-12-2019 09:53-0400 SaO2% (BldA) [Mass fraction] 98 % [facility] Work Phone: [facility] Work Phone: 09-14-2019 08:35-0400 BMI (Body Mass Index) 37.7 kg/m2 [facility] Work Phone: 09-14-2019 08:35-0400 Body Temperature 96.6 [degF] [facility] Work Phone: 09-14-2019 08:35-0400 Body weight 112.49 kg [facility] Work Phone: 09-14-2019 08:35-0400 BP Diastolic 80 mm[Hg] [facility] Work Phone: 09-14-2019 08:35-0400 BP Systolic 130 mm[Hg] [facility] Work Phone: 09-14-2019 08:35-0400 BSA (Body Surface Area) 2.24 m2 [facility] Work Phone: 09-14-2019 08:35-0400 Height 172.72 cm [facility] Work Phone: 09-14-2019 08:35-0400 Pulse (Heart Rate) 81 /min [facility] Work Phone: 09-14-2019 08:35-0400 Pulse Oximetry 98 % [facility] Work Phone: 09-14-2019 08:35-0400 Respiratory Rate 18 /min [facility] Work Phone: 09-05-2019 10:26-0400 BMI (Body Mass Index) 37.3 kg/m2 [facility] Work Phone: 09-05-2019 10:26-0400 Body weight 111.13 kg [facility] Work Phone: 09-05-2019 10:26-0400 BSA (Body Surface Area) 2.23 m2 [facility] Work Phone: 09-05-2019 10:26-0400 Height 172.72 cm [facility] Work Phone: 08-17-2019 08:29-0400 BMI (Body Mass Index) 37.3 kg/m2 [facility] Work Phone: 08-17-2019 08:29-0400 Body Temperature 97.9 [degF] [facility] Work Phone: 08-17-2019 08:29-0400 Body weight 111.13 kg [facility] Work Phone: 08-17-2019 08:29-0400 BP Diastolic 80 mm[Hg] [facility] Work Phone: 08-17-2019 08:29-0400 BP Systolic 120 mm[Hg] [facility] Work Phone: 08-17-2019 08:29-0400 BSA (Body Surface Area) 2.23 m2 [facility] Work Phone: 08-17-2019 08:29-0400 Height 172.72 cm [facility] Work Phone: 08-17-2019 08:29-0400 Pulse (Heart Rate) 68 /min [facility] Work Phone: 08-17-2019 08:29-0400 Pulse Oximetry 98 % [facility] Work Phone: 08-17-2019 08:29-0400 Respiratory Rate 18 /min [facility] Work Phone: 07-20-2019 08:36-0500 BMI (Body Mass Index) 39 kg/m2 [facility] Work Phone: 07-20-2019 08:36-0500 Body Temperature 98.4 [degF] [facility] Work Phone: 07-20-2019 08:36-0500 Body weight 116.39 kg [facility] Work Phone: 07-20-2019 08:36-0500 BP Diastolic 80 mm[Hg] [facility] Work Phone: 07-20-2019 08:36-0500 BP Systolic 120 mm[Hg] [facility] Work Phone: 07-20-2019 08:36-0500 BSA (Body Surface Area) 2.27 m2 [facility] Work Phone: 07-20-2019 08:36-0500 Height 172.72 cm [facility] Work Phone: 07-20-2019 08:36-0500 Pulse (Heart Rate) 87 /min [facility] Work Phone: 07-20-2019 08:36-0500 Pulse Oximetry 97 % [facility] Work Phone: 07-20-2019 08:36-0500 Respiratory Rate 18 /min [facility] Work Phone: 07-06-2019 08:43-0500 BMI (Body Mass Index) 39.7 kg/m2 [facility] Work Phone: 07-06-2019 08:43-0500 Body Temperature 97.3 [degF] [facility] Work Phone: 07-06-2019 08:43-0500 Body weight 118.39 kg [facility] Work Phone: 07-06-2019 08:43-0500 BP Diastolic 82 mm[Hg] [facility] Work Phone: 07-06-2019 08:43-0500 BP Systolic 122 mm[Hg] [facility] Work Phone: 07-06-2019 08:43-0500 BSA (Body Surface Area) 2.29 m2 [facility] Work Phone: 07-06-2019 08:43-0500 Height 172.72 cm [facility] Work Phone: 07-06-2019 08:43-0500 Pulse (Heart Rate) 78 /min [facility] Work Phone: 07-06-2019 08:43-0500 Pulse Oximetry 98 % [facility] Work Phone: 07-06-2019 08:43-0500 Respiratory Rate 18 /min [facility] Work Phone: Encounters Encounter Date Encounter Type Care Provider Facility Start: 12-15-2023 End: 12-15-2023 ambulatory ADITYA BILLY Not Available Start: 12-06-2023 End: 12-06-2023 ambulatory ADITYA BILLY Not Available Start: 11-18-2023 End: 11-18-2023 ambulatory ADITYA BILLY Not Available Start: 10-28-2023 End: 10-28-2023 ambulatory ADIYTA BILLY Not Available Start: 10-14-2023 End: 10-14-2023 ambulatory LATASHA CARLTON Not Available Start: 10-07-2023 End: 10-07-2023 ambulatory ADITYA BILLY Not Available Start: 09-16-2023 End: 09-16-2023 ambulatory ADITYA BILLY Not Available Start: 08-19-2023 End: 08-19-2023 ambulatory LATASHA CARLTON Not Available Start: 07-15-2023 End: 07-15-2023 ambulatory ADITYA BILLY Not Available Start: 07-15-2023 End: 07-15-2023 flow sheet Aditya Billy DO Work Phone: [facility] Comment on above: Second trimester pre gnancy Start: 06-11-2023 End: 06-11-2023 ambulatory ADITYA BILLY Not Available Start: 05-12-2023 End: 05-13-2023 ambulatory MIGUEL Foy [facility] Start: 05-07-2023 End: 05-08-2023 ambulatory MIGUEL Foy [facility] Start: 05-05-2023 End: 05-06-2023 ambulatory [facility] Start: 04-14-2023 End: 04-14-2023 ambulatory ADITYA BILLY Not Available Start: 03-24-2023 End: 03-27-2023 ambulatory ADITYA ANGELICA BILLY Tereza [facility] Start: 01-20-2023 End: 01-20-2023 ambulatory [facility] Start: 01-01-2023 End: 01-02-2023 ambulatory MIGUEL Foy [facility] Start: 01-01-2023 Encounter for gynecological examination (general) (routine) without abnormal findings [facility] Start: 01-01-2023 End: 01-01-2023 Patient encounter [...] patient visit Donny Hatfield DO Work Phone: [facility] ED Comment on above: Nausea vomiting and diarrhea (Primary Dx); Generalized abdominal pain Start: 09-23-2020 End: 09-24-2020 [facility] Start: 09-23-2020 End: 09-23-2020 Subsequent hospital visit by physician Miguel Stewart CNP Work Phone: [facility] Start: 09-23-2020 End: 09-23-2020 General Jammie RODAS Work Phone: [facility] Work Phone: Start: 09-23-2020 End: 09-23-2020 Adult health examination 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 CNP Work Phone: [facility] Work Phone: Start: 09-23-2020 End: 09-23-2020 FQHC visit, estab pt 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 CNP Work Phone: [facility] Work Phone: Start: 04-08-2020 End: 04-08-2020 Emergency department patient visit 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 [facility] ED Comment on above: COVID-19 (Primary Dx ); Fatty liver Start: 03-19-2020 End: 03-19-2020 Telemedicine consultation with patient 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 Work Phone: [facility] Work Phone: Start: 03-05-2020 End: 03-05-2020 Established patient 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 Work Phone: [facility] Work Phone: Start: 12-05-2019 End: 12-05-2019 Established patient Poly Franco Work Phone: [facility] Work Phone: Start: 11-06-2019 End: 11-06-2019 Established patient Poly Franco Work Phone: [facility] Work Phone: Start: 10-12-2019 End: 10-12-2019 Patient encounter procedure Paty Short Work Phone: [facility] Work Phone: Start: 10-12-2019 End: 10-12-2019 Established patient Poly Franco Work Phone: [facility] Work Phone: Start: 09-14-2019 End: 09-14-2019 Established patient Poly Franco Work Phone: [facility] Work Phone: Start: 09-11-2019 End: 09-11-2019 Telemedicine consultation with patient Poly Franco Work Phone: [facility] Work Phone: Start: 09-05-2019 End: 09-05-2019 Telemedicine consultation with patient Poly Franco Work Phone: [facility] Work Phone: Start: 08-17-2019 End: 09-11-2019 Telemedicine consultation with patient Poly Franco Work Phone: [facility] Work Phone: Start: 08-17-2019 End: 08-17-2019 Established patient 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 Work Phone: [facility] Work Phone: Start: 07-20-2019 End: 07-20-2019 Established patient 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 Work Phone: [facility] Work Phone: Start: 07-06-2019 End: 07-06-2019 Subsequent hospital visit by physician Jackson [facility] Start: 07-06-2019 End: 07-06-2019 Established patient Anh Virk Work Phone: [facility] Work Phone: Start: 07-06-2019 End: 07-06-2019 New patient Allyson Floyd Work Phone: [facility] Work Phone: Start: 02-02-2019 End: 02-04-2019 Subsequent hospital visit by physician [facility] Ultrasound Room [facility] Ultrasound Comment on above: Encounter for intrau terine device placement Start: 08-21-2018 End: 08-23-2018 Patient encounter procedure [facility] Start: 01-04-2017 End: 01-04-2017 Emergency department patient visit [address] [facility] Facility:[id number] Procedures Date Procedure Procedure Detail Performing Clinician Start: 07-15-2023 Urnls dip stick/tabl et rgnt non-auto w/o micrscp Aditya Cervantes DO Work Phone: Start: 12-16-2021 Assay of blood/uric acid Dedrick JAQUEZC Work Phone: Start: 12-16-2021 C-reactive protein Robel KULKARNI-C Work Phone: Start: 12-04-2021 Nerve conduction heaven dies 9-10 studies Shona Lucio Start: 10-02-2021 Microscopic observat ion [Identifier] in Cervix by Cyto stain 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 [employer] Work Phone: Start: 10-15-2020 Urinalysis microscop ic [...] pressure < 80 mm hg 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 [employer] Work Phone: Start: 09-23-2020 Most recent systolic blood pressure <130 mm hg 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 [employer] Work Phone: Start: 09-23-2020 Pt-focused hlth risk assmt score doc stnd instrm 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 CNP Work Phone: Start: 09-23-2020 Antibody hiv-1&hiv-2 single result 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 CNP Work Phone: Start: 09-23-2020 Comprehensive metabo lic panel 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 [employer] - [facility] Work Phone: Start: 04-08-2020 Ct thorax w/contrast material [facility] Work Phone: Start: 04-08-2020 [facility] Work Phone: Start: 04-08-2020 Urine test visual color cmprsn meths [facility] Work Phone: Start: 04-08-2020 Assay of troponin quantitative [facility] Work Phone: Start: 04-08-2020 Blood count complete [...] in Cervix by Cyto stain 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 [employer] Work Phone: NEGATED: Highlighted row has not occurred!Start: 11-06-2019 currently nursing 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 NEGATED: Highlighted row has not occurred!Start: 11-06-2019 currently 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 NEGATED: Highlighted row has not occurred!Start: 07-06-2019 reported medical history 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 Plan of Treatment Date Care Activity Detail Author Start: 10-02-2024 Screening for malign ant neoplasm of cervix Pap smear [facility] Start: 08-19-2023 End: 08-19-2023 Patient encounter procedure 08/19/2023 11:00 AM EDT Routine [facility] [address] [place] [id number] Latasha Carlton PA [address] [place] [address] [facility] Start: 08-19-2023 End: 08-19-2023 Professional / ancillary services management 08/19/2023 10:00 AM EDT Ancillary Procedure [facility] [address] [place] [id number] [facility] Start: 01-20-2023 End: 01-20-2023 Admission to same day surgery center 01/20/2023 Surgery IP Unit Vickie Nichols MD [address] [place] [address] HYSTEROSCOPY - IUD REMOVAL [facility] Comment on above: HYSTEROSCOPY - IUD R EMOVAL Start: 01-20-2023 End: 01-20-2023 Hysteroscopy removal impacted foreign body HYSTEROSCOPY Intrauterine contraceptive device threads lost, initial encounter 01/20/2023 11:10 AM EDT [facility] Start: 01-20-2023 Subsequent hospital visit by physician 01/20/2023 Hospital Encounter IP Unit Vickie Nichols MD [address] [place] [address] [facility] Start: 12-29-2022 Influenza vaccination Flu vaccine (# 1) [facility] Start: 04-27-2022 End: 04-27-2022 Patient encounter procedure [facility] Start: 01-29-2022 Influenza vaccination [facility] Start: 02-07-2021 Cervical cancer screen Cervical canc er screen [facility]- [place], [place] Start: 02-07-2021 Screening for malign ant neoplasm of cervix [facility] Start: 01-29-2021 Influenza vaccination Flu vacc ine (Season Ended) [facility] Work Phone: Start: 09-30-2020 CBC W Auto Different ial panel - Blood [facility] Start: 09-30-2020 Lipid 1996 panel - S stefan or Plasma LIPID PROFILE [facility] Start: 09-23-2020 Psychiatry Health [facility] Work Phone: Comment on above: Note: Please make a referral to: Start: 03-26-2020 SARS-CoV-2, KAILA [facility] Work Phone: Start: 03-19-2020 COVID Drive up Testing [facility] Work Phone: Start: 02-06-2020 Medical Establ ished Patient [facility] Work Phone: Start: 01-30-2020 Influenza vaccination Flu vaccine (# 1) [place], [place] Start: 11-09-2019 Medical Establ ished Patient [facility] Work Phone: Start: 10-11-2019 Medical Establ ished Patient [facility] Work Phone: Start: 09-14-2019 Medical Establ ished Patient [facility] Work Phone: Start: 08-17-2019 Medical Establ ished Patient [facility] Work Phone: Start: 07-20-2019 Medical Establ ished Patient [facility] Work Phone: Start: 07-13-2019 Lipid 1995 panel [facility] Work Phone: Start: 02-14-2019 End: 02-14-2019 Office Visit 02/14/2019 Office Visit Obstetrics and Gynecology Pilar Marie APRN - ANNETTA [address], [place] [id number] [facility] [employer] Start: 02-07-2019 Chlamydia screen Chlamydia screen [place], [place] Start: 02-07-2019 Screening for Chlamy valentino trachomatis Chlamydia screen [facility] Start: 01-29-2019 Influenza vaccination Flu vaccine (# 1) [place], [place] Start: 10-29-2017 DTaP/Tdap/Td vaccine (2 - Td or Tdap) DTaP/Tdap/Td vaccine (2 - Td or Tdap) [facility] Start: 10-29-2017 DTaP/Tdap/Td vaccine (2 - Td) DTaP/Tdap/Td vaccine (2 - Td) [place], [place] Start: 2014 Hepatitis C screening Hepatitis C sc reen [facility] Start: 2012 COVID-19 Vaccine (1) COVID-19 Vaccin e (1) [facility] Work Phone: Start: 2011 HIV screen HIV screen [place], [place] Start: 2011 HIV screening HIV screen ABIGAIL KWON [facility]ERNARD[facility] Start: 2011 HPV vaccine (1 - Fem shiela 3-dose series) HPV vaccine (1 - Female 3-dose series) [place], [place] Start: 2009 Varicella Vaccine (1 of 2 - 13+ 2-dose series) Varicella Vaccine (1 of 2 - 13+ 2-dose series) [place], [place] Start: 2008 COVID-19 Vaccine (1) COVID-19 Vaccin e (1) [facility] Phone: Start: 2008 Depression Screen Depression Screen [facility] Start: 2007 HPV vaccine (1 - 2-d ose series) HPV vaccine (1 - 2-dose series) [facility] Start: 2007 HPV vaccine (1 - Fem shiela 2-dose series) HPV vaccine (1 - Female 2-dose series) [facility] Phone: Start: 2001 COVID-19 Vaccine (1) COVID-19 Vaccin e (1) [facility] Start: 1997 Varicella vaccine (1 of 2 - 2-dose childhood series) Varicella vaccine (1 of 2 - 2-dose childhood series) [facility] Start: 1996 COVID-19 Vaccine (#1) COVID-19 Vacci ne (#1) [facility] Start: 1996 Hepatitis C screening Hepatitis C sc reen [facility] Phone: End: 12-16-2021 GLENNY Screen with Reflex [facility] Phone: Comment on above: Once for 1 Occurrenc es starting 12/16/2021 until 12/16/2021 End: 10-02-2021 Cytopathology procedure, preparation of smear, genital source PAP SMEAR Lab Routine Women's annual routine gynecological examination 1 Occurrences starting 10/02/2021 until 10/02/[address] [facility] Comment on above: 1 Occurrences starti ng 10/02/2021 until 10/02/2021 End: 01-01-2023 Cytopathology procedure, preparation of smear, genital source PAP SMEAR Lab Routine Women's annual routine gynecological examination 1 Occurrences starting 01/01/2023 until 01/01/2023 [facility] Phone: Comment on above: 1 Occurrences starti ng 01/01/2023 until 01/01/2023 End: 12-16-2021 HLA-B27 Antigen [facility] Phone: Comment on above: Once for 1 Occurrenc es starting 12/16/2021 until 12/16/2021 End: 07-06-2019 Insulin, free Insulin, free Lab Routine Once for 1 Occurrences starting 07/06/2019 until 07/06/2019 [facility] Phone: Comment on above: Once for 1 Occurrenc es starting 07/06/2019 until 07/06/2019 Insulin, free Insulin, free La b Routine 07/06/2019 9:31 AM EST [facility] Phone: End: 12-16-2021 Lyme Ab BON [employer] Phone: Comment on above: Once for 1 Occurrenc es starting 12/16/2021 until 12/16/2021 Immunizations Immunization Date Immunization Notes Care Provider Em de la cruz 10-30-2007 tetanus toxoid, redu katelyn diphtheria toxoid, and acellular pertussis vaccine, adsorbed [facility] [place] Payers Date Payer Category Payer Medicaid [id number] 2023 Unknown [facility] [employer] [id number] 2023-Present [address] [address] [place] [address] [id number] 2023 Unknown [id number] 2022 Unknown [id number] 2018 Unknown [id number] [id number] 99.5.10.6.3 2016 Unknown [employer] [address] xxxxxxxxxxxx 2016-Present [phone] [address] [place] [address] xxxxxxxxxxxx [id number] 1996 Unknown [id number] [id number]5 1996 Unknown [id number] 2.16.840.1.188036.3.579.2.173 1996 Unknown [id number] 2.16.840.1.957049.3.579.2.173 1996 Unknown [id number] 2.16.840.1.831841.3.579.2.173 1996 Unknown [id number] 2.16.840.1.513771.3.579.2.173 1996 Unknown [id number] 2.16.840.1.353084.3.579.2.173 1996 Unknown [id number] 2.16.840.1.535488.3.579.2.173 1996 Unknown [id number] 2.16.840.1.828009.3.579.2.173 1996 Unknown [id number] 2.16.840.1.470521.3.579.2.125 9 1996 Unknown [id number] 2.16.840.1.373180.3.579.2.125 9 1996 Unknown [id number] 2.16.840.1.922847.3.579.2.125 9 1996 Unknown [id number] 2.16.840.1.833546.3.579.2.125 9 1996 Unknown [id number] 2.16.840.1.526232.3.579.2.125 9 1996 Unknown [id number] 2.16.840.1.980047.3.579.2.125 9 1996 Unknown [id number] 2.16.840.1.807742.3.579.2.125 9 1996 Unknown [id number] 2.16.840.1.326011.3.579.2.125 9 1996 Unknown [id number] 2.16.840.1.526187.3.579.2.125 9 1996 Unknown [id number] 2.16.840.1.003369.3.579.2.125 9 1996 Unknown [id number] 2.16.840.1.966151.3.579.2.125 9 Unknown [id number] [id number] Social History Date Type Detail Facility Assertion [facility] Work Phone: Assertion Emotional stress (finding) [facility] Work Phone: Tobacco smoking status Unknown if ever smoked [facility] Work Phone: Assertion Sexually active (finding) [facility] Work Phone: Assertion Gender identity finding (finding) [facility] Work Phone: Assertion Finding of sexua l orientation (finding) [facility] Work Phone: Start: 10-13-2013 End: 02-07-2018 Tobacco smoking status NHIS Never smoker [employer] [place] Start: 02-07-2018 End: 01-01-2023 Alcohol intake Current drinker of alcohol (finding) [facility] Phone: Start: 12-12-2015 Alcohol Comment [facility] [place] Start: 1996 Sex Assigned At Not on file [facility] [place] Start: 10-13-2013 End: 04-08-2020 Tobacco use and exposure Never used ROBBY Vogel Exposure to SARS-CoV-2 (event) Not sure ROBBY Vogel Start: 02-07-2018 Alcohol intake Yes ROBBY Gonzalez Assertion Family illness (situation) [facility] Work Phone: Assertion Single person (finding) [facility] Work Phone: Start: *Tobacco [employer] Start: 04-15-2023 [facility] NEGATED: Highlighted row Assertion Exposure to pollution (event) [facility] Work Phone: NEGATED: Highlighted row Assertion Tobacco user (finding) [facility] Work Phone: NEGATED: Highlighted row Assertion Current drinker of alcohol (finding) [facility] Work Phone: NEGATED: Highlighted row Assertion Finding relating to drug misuse behavior (finding) [facility] Work Phone: Mental Status Date Assessment Result Facility Cognitive function Cognitive fun ctioning was normal Cognitive function finding (finding) [facility] Work Phone: Clinical Notes 11-06-2019 to [...] Aditya Cervantes DO documented in this encounter [facility] 09-23-2020 Evaluation note Includes: Assessments for all patient encounters Findings Anxiety disorder NOS [facility] with Jammie RODAS 09/23/2020 Assessment of visit for: screening for human immunodeficiency virus Medical Established Patient with 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 CNP 09/23/2020 Diabetes Risk Test Score was three score 09/23/2020 Medical Established Patient with 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 [facility] 09/23/2020 Morbid obesity Medical Established Patient with 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 [employer] 09/23/2020 Routine adult history and physical (18-64 yrs) without abnormal findings Medical Established Patient with 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 [employer] 09/23/2020 Z68.41 - Body mass index [BMI]40.0-44.9, adult Medical Established Patient with 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 [employer] 09/23/2020 Cough Telemedicine Establi sted Patient with 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 [facility] 03/19/2020 Exposure to a viral disease Telemedicine Establisted Patient with Miguel Sharpe [facility] 03/19/2020 Obesity due to excess calories Telemedic ine Establisted Patient with Miguel Sharpe [facility] 03/19/2020 Z68.37 - Body mass index [BM I] 37.0-37.9, adult Telemedicine Establisted Patient with Miguel Sharpe [facility] 03/19/2020 Obesity due to excess calories Medical E stablished Patient with Miguel Sharpe [facility] 03/05/2020 Z68.37 - Body mass index [BM I] 37.0-37.9, adult Medical Established Patient with Miguel Sharpe [facility] 03/05/2020 Obesity due to excess calories Medical E stablished Patient with Poly Wagonerle [facility] 12/05/2019 R21 - Rash and other nonspecific skin eruption Medical Established Patient with Poly Wagonerle [facility] 12/05/2019 Z68.35 - Body mass index (BM I) 35.0-35.9, adult Medical Established Patient with Poly Wagonerle [facility] 12/05/2019 Obesity due to excess calories Medical E stablished Patient with Poly Salvador [facility] 11/06/2019 Z68.36 - Body mass index (BM I) 36.0-36.9, adult Medical Established Patient with Poly Salvador [facility] 11/06/2019 Obesity due to excess calories Medical E stablished Patient with Poly Salvador [facility] 10/12/2019 Z68.38 - Body mass index (BM I) 38.0-38.9, adult Medical Established Patient with Poly Salvador [facility] 10/12/2019 L25.5 - Unspecified contact dermatitis due to plants, except food Medical Established Patient with Polykamryn Wagonerle [facility] 09/14/2019 Obesity due to excess calories Medical E stablished Patient with Poly Franco [facility] 09/14/2019 Z68.37 - Body mass index (BM I) 37.0-37.9, adult Medical Established Patient with Poly Franco [facility] 09/14/2019 L25.5 - Unspecified contact dermatitis due to plants, except food Telemedicine with Poly Franco [facility] 09/11/2019 Obesity due to excess calories Telemedic ine with Poly Franco [facility] 09/11/2019 Z68.37 - Body mass index (BM I) 37.0-37.9, adult Telemedicine with Poly Franco [facility] 09/11/2019 Dermatitis due to contact wi th poison spencer Telemedicine with Poly Franco [employer] 09/05/2019 Obesity due to excess calories Telemedic ine with Poly Franco [facility] 09/05/2019 Z68.37 - Body mass index (BM I) 37.0-37.9, adult Telemedicine with Poly Franco [employer] 09/05/2019 Obesity due to excess calories Medical E stablished Patient with Miguel Sharpe [facility] 08/17/2019 Z68.37 - Body mass index (BM I) 37.0-37.9, adult Medical Established Patient with Miguel Sharpe [facility] 08/17/2019 Generalized anxiety disorder BH Establis hed Patient with Anh VIDAL 07/06/2019 Anxiety disorder NOS Medical New Patient with Allyson Nye [facility] 07/06/2019 Depression Medical New Patient with Allyson Everett [facility] 07/06/2019 Diabetes Risk Test Score was one score Medical New Patient with Allyson Stockton [facility] 07/06/2019 Idiopathic insomnia Medical New Patient with Allyson Stockton [facility] 07/06/2019 Obesity due to excess calories Medical N ew Patient with Allyson Stockton [facility] 07/06/2019 Z68.39 - Body mass index (BM I) 39.0-39.9 adult Medical New Patient with Allyson Nye [employer] [employer] 07/06/2019 [facility] Work Phone: [phone] 784-531706-08-2020 History general Narrative - Reported Includes: Medical History in patient's chart Description Last Updated Not currently nursing 11/06/2019 Not 11/06/2019 No reported medical history or no signif icant history 07/06/2019 [facility] Work Phone: Evaluation note Includes: Assessments for all patient encounters Findings Encounter Date Assessment of visit for: scr eening for human immunodeficiency virus Medical Established Patient with Miguel Sharpe [facility] 09/23/2020 Diabetes Risk Test Score was three score 09/23/2020 Medical Established Patient with Miguel Sharpe [facility] 09/23/2020 Morbid obesity Medical Established Patient with Miguel Sharpe [facility] 09/23/2020 Routine adult history and ph ysical (18-64 yrs) without abnormal findings Medical Established Patient with Miguel Sharpe [facility] 09/23/2020 Z68.41 - Body mass index [BMI]40.0-44.9, adult Medical Established Patient with Miguel Sharpe [facility] 09/23/2020 Cough Telemedicine Establi sted Patient with Miguel Sharpe [facility] 03/19/2020 Exposure to a viral disease Telemedicine Establisted Patient with Miguel Sharpe [facility] 03/19/2020 Obesity due to excess calories Telemedic ine Establisted Patient with Miguel Sharpe [facility] 03/19/2020 Z68.37 - Body mass index [BM I] 37.0-37.9, adult Telemedicine Establisted Patient with Miguel Sharpe [facility] 03/19/2020 Obesity due to excess calories Medical E stablished Patient with Miguel Sharpe [facility] 03/05/2020 Z68.37 - Body mass index [BM I] 37.0-37.9, adult Medical Established Patient with Miguel Sharpe [facility] 03/05/2020 Obesity due to excess calories Medical E stablished Patient with Poly Salvador [facility] 12/05/2019 R21 - Rash and other nonspec ific skin eruption Medical Established Patient with Poly Salvador [facility] 12/05/2019 Z68.35 - Body mass index (BM I) 35.0-35.9, adult Medical Established Patient with Poly Salvador [facility] 12/05/2019 Obesity due to excess calories Medical E stablished Patient with Poly Salvador [facility] 11/06/2019 Z68.36 - Body mass index (BM I) 36.0-36.9, adult Medical Established Patient with Poly Salvador [employer] 11/06/2019 Obesity due to excess calories Medical E stablished Patient with Poly Salvador [facility] 10/12/2019 Z68.38 - Body mass index (BM I) 38.0-38.9, adult Medical Established Patient with Poly Salvador [employer] 10/12/2019 L25.5 - Unspecified contact dermatitis due to plants, except food Medical Established Patient with Poly Franco [employer] 09/14/2019 Obesity due to excess calories Medical E stablished Patient with Poly Franco [facility] 09/14/2019 Z68.37 - Body mass index (BM I) 37.0-37.9, adult Medical Established Patient with Poly Franco [employer] 09/14/2019 L25.5 - Unspecified contact dermatitis due to plants, except food Telemedicine with Poly Franco [facility] 09/11/2019 Obesity due to excess calories Telemedicine with Poly Franco [facility] 09/11/2019 Z68.37 - Body mass index (BM I) 37.0-37.9, adult Telemedicine with Poly Franco [facility] 09/11/2019 Dermatitis due to contact wi th poison spencer Telemedicine with Poly Franco [facility] 09/05/2019 Obesity due to excess calories Telemedicine with Poly Franco [facility] 09/05/2019 Z68.37 - Body mass index (BM I) 37.0-37.9, adult Telemedicine with Poly Franco [facility] 09/05/2019 Obesity due to excess calories Medical E stablished Patient with Miguel Sharpe [facility] 08/17/2019 Z68.37 - Body mass index (BM I) 37.0-37.9, adult Medical Established Patient with Miguel Sharpe [facility] 08/17/2019 Generalized anxiety disorder BH Establis hed Patient with Anh VIDAL 07/06/2019 Anxiety disorder NOS Medical New Patient with Allyson Everett [employer] [employer] 07/06/2019 Depression Medical New Patient with Allyson Stockton [employer] [employer] 07/06/2019 Diabetes Risk Test Score was one score M edical New Patient with Allyson Everett [employer] 07/06/2019 Idiopathic insomnia Medical New Patient with Allyson Stockton [employer] [employer] 07/06/2019 Obesity due to excess calories Medical N ew Patient with Allyson Everett [employer] 07/06/2019 Z68.39 - Body mass index (BM I) 39.0-39.9 adult Medical New Patient with Allyson Stockton [employer] 07/06/2019 [facility] Work Phone: Evaluation note* Diagnosis Nausea vomiting and diarrhea- Primary Nausea with vomiting Generalized abdominal pain Abdominal pain, generalized documented in this encounter [employer] Phone: evaluation note* Diagnosis Women's annual routine gynecological examination [facility]* Diagnosis Women's annual routine gynecological examination Intrauterine contraceptive device threads lost, initial encounter [facility] Diagnosis Second trimester state, incidental documented in this encounter [facility] Narrative History of Present Illness not supported for this document type No History of Present Illness [facility] [employer] [facility] Work Phone: Hospital Discharge instructions* Attachments The following attachments cannot be sent through Care Everywhere. * Abdominal Pain (Citizen Of [place]) * Nausea and Vomiting (Citizen Of [place]) * Diarrhea (Citizen Of [place]) [facility]: Instructions Instructions not supported for this document type No Instructions [facility] [employer] [facility] Work Phone: Patient problem outcome Narrative Includes: Evaluations & Outcomes for active Goals No Outcomes [facility] [employer] [facility] Work Phone: Reason for referral (narrative)No Reason for Referral [facility] [employer] [facility] Work Phone: Review of systems Narrative - Reported Review of Systems not supported for this document type No Review of Systems [facility] [employer] [facility] [employer] Phone: Summary Purpose Family History No Family History Records Found Description Last Updated Maternal history of rheumatoid arthritis 07/06/2019 Maternal history of rheumatologic disord er Fibromyalgia 07/06/2019 Maternal history of systemic lupus eryth ematosus 07/06/2019 Paternal history of type 1 diabetes marino itus 07/06/2019 Advance Directives No Advanced Directives Records FoundDocuments on File Type Date Recorded 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 Advance Directives and Living Will Power of Sales Expert Documents on File Type Date Recorded 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 ACP-Advance Directive ACP-Power of Sales Expert Documents on File Type Date Recorded 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 Advance Directives and Living Will Power of Sales Expert Reason for Referral No Reason for Referral [...] score Medical New Patient with Allyson Floyd [employer] 07/06/2019 Idiopathic insomnia Medical New Patient with Allyson Floyd [employer] 07/06/2019 Obesity due to excess calories Medical N ew Patient with Allyson Floyd [employer] 07/06/2019 Z68.39 - Body mass index (BM I) 39.0-39.9 adult Medical New Patient with Allyson Floyd [employer] 07/06/2019 Findings Encounter Date Obesity due to excess calories Medical E stablished Patient with Poly Wagonerle [facility] 10/12/2019 Z68.38 - Body mass index (BM I) 38.0-38.9, adult Medical Established Patient with Poly Franco [facility] 10/12/2019 L25.5 - Unspecified contact dermatitis due to plants, except food Medical Established Patient with Poly Franco [facility] 09/14/2019 Obesity due to excess calories Medical E stablished Patient with Poly Wagonerle [facility] 09/14/2019 Z68.37 - Body mass index (BM I) 37.0-37.9, adult Medical Established Patient with Poly Franco [facility] 09/14/2019 L25.5 - Unspecified contact dermatitis due to plants, except food Telemedicine with Poly Wagonerle [facility] 09/11/2019 Obesity due to excess calories Telemedicine with Poly Wagonerle [facility] 09/11/2019 Z68.37 - Body mass index (BM I) 37.0-37.9, adult Telemedicine with Poly Wagonerle [facility] 09/11/2019 Dermatitis due to contact wi th poison spencer Telemedicine with Poly Wagonerle [facility] 09/05/2019 Obesity due to excess calories Telemedicine with Poly Wagonerle [facility] 09/05/2019 Z68.37 - Body mass index (BM I) 37.0-37.9, adult Telemedicine with Poly Wagonerle [facility] 09/05/2019 Obesity due to excess calories Medical E stablished Patient with Miguelcristal Sharpe [employer] 08/17/2019 Z68.37 - Body mass index (BM I) 37.0-37.9, adult Medical Established Patient with Miguel Leydi [employer] 08/17/2019 Generalized anxiety disorder BH Establis hed Patient with Anhbrad Virk [facility]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 07/06/2019 Anxiety disorder NOS Medical New Patient with Allyson Stockton [employer] 07/06/2019 Depression Medical New Patient with Allyson Stockton [employer] 07/06/2019 Diabetes Risk Test Score was one score Medical New Patient with Allyson Stockton [employer] 07/06/2019 Idiopathic insomnia Medical New Patient with Allyson Stockton [employer] 07/06/2019 Obesity due to excess calories Medical N ew Patient with Allyson Stockton [employer] 07/06/2019 Z68.39 - Body mass index (BM I) 39.0-39.9 adult Medical New Patient with Allyson Everett [employer] 07/06/2019 Findings Encounter Date Obesity due to excess calories Medical E stablished Patient with Miguel Leydi [employer] 08/17/2019 Z68.37 - Body mass index (BM I) 37.0-37.9, adult Medical Established Patient with Miguel Sharpe [employer] 08/17/2019 Generalized anxiety disorder BH Establis hed 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 07/06/2019 Anxiety disorder NOS Medical New Patient with Allyson Stockton [employer] 07/06/2019 Depression Medical New Patient with Allyson Everett [employer] 07/06/2019 Diabetes Risk Test Score was one score Medical New Patient with Allyson Stockton [employer] 07/06/2019 Idiopathic insomnia Medical New Patient with Allyson Everett [employer] 07/06/2019 Obesity due to excess calories Medical N ew Patient with Allyson Stockton [employer] 07/06/2019 Z68.39 - Body mass index (BM I) 39.0-39.9 adult Medical New Patient with Allyson Everett [employer] 07/06/2019 Findings Encounter Date Dermatitis due to contact wi th poison spencer Telemedicine with Poly Wagonerle [employer] 09/05/2019 Obesity due to excess calories Telemedicine with Poly Salvador [employer] 09/05/2019 Z68.37 - Body mass index (BM I) 37.0-37.9, adult Telemedicine with Poly Salvador [employer] 09/05/2019 Obesity due to excess calories Medical E stablished Patient with Miguel Leydi [employer] 08/17/2019 Z68.37 - Body mass index (BM I) 37.0-37.9, adult Medical Established Patient with Miguel Sharpe [employer] 08/17/2019 Generalized anxiety disorder BH Establis hed Patient with Anh Moose RODAS-S 07/06/2019 Anxiety disorder NOS Medical New Patient with Allyson Nye [employer]NAGER [employer] 07/06/2019 Depression Medical New Patient with Allyson Everett [employer] 07/06/2019 Diabetes Risk Test Score was one score Medical New Patient with Allyson Stockton [employer]NAGER [employer] 07/06/2019 Idiopathic insomnia Medical New Patient with Allyson Stockton [employer]NAGER [employer] 07/06/2019 Obesity due to excess calories Medical N ew Patient with Allyson Everett [employer] 07/06/2019 Z68.39 - Body mass index (BM I) 39.0-39.9 adult Medical New Patient with Allyson Floyd MANAGER PLAY 07/06/2019 Findings Encounter Date L25.5 - Unspecified contact dermatitis due to plants, except [facility] to [facility] Z68.37 - Body mass index (BM I) 37.0-37.9, adult Telemedicine with [facility] 09/11/2019 Dermatitis due to contact wi th poison spencer Telemedicine with [facility] 09/05/2019 Obesity due to excess calories Telemedicine with [facility] 09/05/2019 Z68.37 - Body mass index (BM I) 37.0-37.9, [facility] Obesity due to excess calories Medical E stablished Patient with Miguel Sharpe [facility] 08/17/2019 Z68.37 - Body mass index (BM I) 37.0-37.9, adult Medical Established Patient with Miguel Sharpe [employer] 08/17/2019 Generalized anxiety disorder BH Establis hed 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 07/06/2019 Anxiety disorder NOS Medical New Patient with Allyson Everett [employer]NAGER [employer] 07/06/2019 Depression Medical New Patient with Allyson Everett [employer]NAGER [employer] 07/06/2019 Diabetes Risk Test Score was one score Medical New Patient with Allyson Everett [employer]NAGER [employer] 07/06/2019 Idiopathic insomnia Medical New Patient with Allyson Stockton [employer]NAGER [employer] 07/06/2019 Obesity due to excess calories Medical N ew Patient with Allyson Floyd MANAGER PLAY 07/06/2019 Z68.39 - Body mass index (BM I) 39.0-39.9 adult Medical New Patient with Allyson Floyd [employer]NAGER [employer] 07/06/2019 Findings Encounter Date L25.5 - Unspecified contact dermatitis due to plants, except food Medical Established Patient with Poly Franco [employer]NAGER [employer] 09/14/2019 Obesity due to excess calories Medical E stablished Patient with Poly Franco [facility] 09/14/2019 Z68.37 - Body mass index (BM I) 37.0-37.9, adult Medical Established Patient with Poly Franco [facility] 09/14/2019 L25.5 - Unspecified contact dermatitis due to plants, except food Telemedicine with Poly Franco [facility] 09/11/2019 Obesity due to excess calories [facility] Z68.37 - Body mass index (BM I) 37.0-37.9, adult Telemedicine with Poly Franco [facility] 09/11/2019 Dermatitis due to contact wi th poison spencer Telemedicine with Poly Franco [facility] 09/05/2019 Obesity due to excess calories Telemedicine with Poly Franco [facility] 09/05/2019 Z68.37 - Body mass index (BM I) 37.0-37.9, adult Telemedicine with Poly Franco [facility] 09/05/2019 Obesity due to excess calories Medical E stablished Patient with Miguel Sharpe [facility] 08/17/2019 Z68.37 - Body mass index (BM I) 37.0-37.9, adult Medical Established Patient with Miguel Sharpe [facility] 08/17/2019 Generalized anxiety disorder BH Establis hed Patient with Anh VIDAL 07/06/2019 Anxiety disorder NOS Medical New Patient with Allyson Floyd MANAGER PLAY 07/06/2019 Depression Medical New Patient with Allyson Everett [employer]NAGER [employer] 07/06/2019 Diabetes Risk Test Score was one score Medical New Patient with Allyson Stockton MANAGER PLAY 07/06/2019 Idiopathic insomnia Medical New Patient with Allyson Stockton [employer]NAGER [employer] 07/06/2019 Obesity due to excess calories Medical N ew Patient with Allyson Everett [employer]NAGER [employer] 07/06/2019 Z68.39 - Body mass index (BM I) 39.0-39.9 adult Medical New Patient with Allyson Stockton [facility] 07/06/2019 Findings Encounter Date Obesity due to excess calories Medical E stablished Patient with Poly Franco [facility] 11/06/2019 Z68.36 - Body mass index (BM I) 36.0-36.9, adult Medical Established Patient with Poly Franco [facility] 11/06/2019 Obesity due to excess calories Medical E stablished Patient with Poly Franco [facility] 10/12/2019 Z68.38 - Body mass index (BM I) 38.0-38.9, adult Medical Established Patient with Poly Franco [facility] 10/12/2019 L25.5 - Unspecified contact dermatitis due to plants, except food Medical Established Patient with Poly Franco [facility] 09/14/2019 Obesity due to excess calories [facility] Z68.37 - Body mass index (BM I) 37.0-37.9, adult [facility] L25.5 - Unspecified contact dermatitis due to plants, except food Telemedicine with Poly Franco [facility] 09/11/2019 Obesity due to excess calories [facility] Z68.37 - Body mass index (BM I) 37.0-37.9, adult Telemedicine with [facility] 09/11/2019 Dermatitis due to contact wi th poison spencer [facility] Obesity due to excess calories [facility] 09/05/2019 Z68.37 - Body mass index (BM I) 37.0-37.9, adult Telemedicine with Poly Franco [facility] 09/05/2019 Obesity due to excess calories Medical E stablished Patient with Miguel Sharpe [facility] 08/17/2019 Z68.37 - Body mass index (BM I) 37.0-37.9, adult Medical Established Patient with Miguel Leydi [facility] 08/17/2019 Generalized anxiety disorder BH Establis hed Patient with Anh VIDAL 07/06/2019 Anxiety disorder NOS Medical New Patient with Allyson Floyd MANAGER PLAY 07/06/2019 Depression Medical New Patient with Allyson Floyd [employer]NAGER PLAY 07/06/2019 Diabetes Risk Test Score was one score Medical New Patient with Allyson Stockton MANAGER PLAY 07/06/2019 Idiopathic insomnia Medical New Patient with Allyson Floyd MANAGER PLAY 07/06/2019 Obesity due to excess calories Medical N ew Patient with Allyson Floyd MANAGER PLAY 07/06/2019 Z68.39 - Body mass index (BM I) 39.0-39.9 adult Medical New Patient with Allyson Floyd MANAGER PLAY 07/06/2019 Findings Encounter Date Obesity due to excess calories Medical E stablished Patient with Poly Franco [employer]NAGER PLAY 12/05/2019 R21 - Rash and other nonspec ific skin eruption Medical Established Patient with Polykamryn Wagonerle [employer]NAGER [employer] 12/05/2019 Z68.35 - Body mass index (BM I) 35.0-35.9, adult Medical Established Patient with Poly Wagonerle [employer] 12/05/2019 Obesity due to excess calories Medical E stablished Patient with Poly Wagonerle [employer] 11/06/2019 Z68.36 - Body mass index (BM I) 36.0-36.9, adult Medical Established Patient with Poly Wagonerle [employer] 11/06/2019 Obesity due to excess calories Medical E stablished Patient with Poly Wagonerle [facility] 10/12/2019 Z68.38 - Body mass index (BM I) 38.0-38.9, adult Medical Established Patient with Polykamryn Wagonerle [facility] 10/12/2019 L25.5 - Unspecified contact dermatitis due to plants, except food Medical Established Patient with Poly Wagonerle [facility] 09/14/2019 Obesity due to excess calories Medical E stablished Patient with Polykamryn Wagonerle [facility] 09/14/2019 Z68.37 - Body mass index (BM I) 37.0-37.9, adult Medical Established Patient with Poly Wagonerle [facility] 09/14/2019 L25.5 - Unspecified contact dermatitis due to plants, except food Telemedicine with Polykamryn Wagonerle [facility] 09/11/2019 Obesity due to excess calories Telemedicine with Poly Salvador [facility] 09/11/2019 Z68.37 - Body mass index (BM I) 37.0-37.9, adult Telemedicine with Polykamryn Wagonerle [facility] 09/11/2019 Dermatitis due to contact wi th poison spencer Telemedicine with Poly Wagonerle [facility] 09/05/2019 Obesity due to excess calories Telemedicine with Poly Wagonerle [facility] 09/05/2019 Z68.37 - Body mass index (BM I) 37.0-37.9, adult Telemedicine with Polykamryn Wagonerle [employer]GER [employer] 09/05/2019 Obesity due to excess calories Medical E stablished Patient with Miguel Sharpe [employer]NAGER [employer] 08/17/2019 Z68.37 - Body mass index (BM I) 37.0-37.9, adult Medical Established Patient with Miguel Sharpe [employer]GER [employer] 08/17/2019 Generalized anxiety disorder BH Establis hed Patient with Anh VIDAL 07/06/2019 Anxiety disorder NOS Medical New Patient with Allyson Floyd MANAGER PLAY 07/06/2019 Depression Medical New Patient with Allyson Floyd MANAGER PLAY 07/06/2019 Diabetes Risk Test Score was one score Medical New Patient with Allyson Floyd MANAGER PLAY 07/06/2019 Idiopathic insomnia Medical New Patient with Allyson Floyd MANAGER PLAY 07/06/2019 Obesity due to excess calories Medical N ew Patient with Allyson Nye MANAGER PLAY 07/06/2019 Z68.39 - Body mass index (BM I) 39.0-39.9 adult Medical New Patient with Allyson Floyd MANAGER PLAY 07/06/2019 Findings Encounter Date Obesity due to excess calories Medical E stablished Patient with Miguel Sharpe MANAGER PLAY 03/05/2020 Z68.37 - Body mass index [BM I] 37.0-37.9, adult Medical Established Patient with Miguel Sharpe [employer]NAGER [employer] 03/05/2020 Obesity due to excess calories Medical E stablished Patient with Poly Wagonerle MANAGER PLAY 12/05/2019 R21 - [facility] other [facility]pec [facility] Medical Established Patient with Polykamryn Wagonerle [employer]NAGER [employer] 12/05/2019 Z68.35 - Body mass index (BM I) 35.0-35.9, adult Medical Established Patient with Polykamryn Wagonerle [employer]GER [employer] 12/05/2019 Obesity due to excess calories Medical E stablished Patient with Poly Salvador [employer]NAGER PLAY 11/06/2019 Z68.36 - Body mass index (BM I) 36.0-36.9, adult Medical Established Patient with Poly Salvador [employer]GER [employer] 11/06/2019 Obesity due to excess calories Medical E stablished Patient with Poly Salvador MANAGER PLAY 10/12/2019 Z68.38 - Body mass index (BM I) 38.0-38.9, adult Medical Established Patient with Poly Salvador MANAGER PLAY 10/12/2019 L25.5 - Unspecified contact dermatitis due to plants, except food Medical Established Patient with Poly Salvador MANAGER PLAY 09/14/2019 Obesity due to excess calories Medical E stablished Patient with Poly Franco [facility] 09/14/2019 Z68.37 - Body mass index (BM I) 37.0-37.9, adult Medical Established Patient with Poly Franco [facility] 09/14/2019 L25.5 - Unspecified contact dermatitis due to plants, except food Telemedicine with Poly Franco [facility] 09/11/2019 Obesity due to excess calories Telemedicine with Poly Franco [facility] 09/11/2019 Z68.37 - Body mass index (BM I) 37.0-37.9, adult [facility] Dermatitis due to contact wi th poison spencer Telemedicine with Poly Franco [facility] 09/05/2019 Obesity due to excess calories Telemedicine with Poly Franco [facility] 09/05/2019 Z68.37 - Body mass index (BM I) 37.0-37.9, adult Telemedicine with Poly Franco [facility] 09/05/2019 Obesity due to excess calories Medical E stablished Patient with Miguel Sharpe [facility] 08/17/2019 Z68.37 - Body mass index (BM I) 37.0-37.9, adult Medical Established Patient with Miguel Sharpe [facility] 08/17/2019 Generalized anxiety disorder BH Establis hed Patient with Anh VIDAL 07/06/2019 Anxiety disorder NOS Medical New Patient with Allyson Nye [facility] 07/06/2019 Depression Medical New Patient with Allyson Nye [facility] 07/06/2019 Diabetes Risk Test Score was one score Medical New Patient with Allyson Nye [facility] 07/06/2019 Idiopathic insomnia Medical New Patient with Allyson Stockton [facility] 07/06/2019 Obesity due to excess calories Medical N ew Patient with Allyson Everett [facility] 07/06/2019 Z68.39 - Body mass index (BM I) 39.0-39.9 adult Medical New Patient with Allyson Floyd [facility] 07/06/2019 Findings Encounter Date Cough Telemedicine Establi sted Patient with Miguel Sharpe [facility] 03/19/2020 Exposure to a viral disease Telemedicine Establisted Patient with Miguel Leydi [facility] 03/19/2020 Obesity due to excess calories Telemedic ine Establisted Patient with Miguel Leydi [facility] 03/19/2020 Z68.37 - Body mass index [BM I] 37.0-37.9, adult Telemedicine Establisted Patient with Miguel Sharpe [facility] 03/19/2020 Obesity due to excess calories Medical E stablished Patient with Miguel Sharpe [facility] 03/05/2020 Z68.37 - Body mass index [BM I] 37.0-37.9, adult Medical Established Patient with Miguel Sharpe [facility] 03/05/2020 Obesity due to excess calories Medical E stablished Patient with Poly Franco [facility] 12/05/2019 R21 - Rash and other nonspec ific skin eruption Medical Established Patient with Poly Wagonerle [facility] 12/05/2019 Z68.35 - Body mass index (BM I) 35.0-35.9, adult Medical Established Patient with Poly Wagonerle [facility] 12/05/2019 Obesity due to excess calories Medical E stablished Patient with Poly Wagonerle [facility] 11/06/2019 Z68.36 - Body mass index (BM I) 36.0-36.9, adult Medical Established Patient with Poly Franco [facility] 11/06/2019 Obesity due to excess calories Medical E stablished Patient with Poly Wagonerle [facility] 10/12/2019 Z68.38 - Body mass index (BM I) 38.0-38.9, adult Medical Established Patient with Poly Wagonerle [facility] 10/12/2019 L25.5 - Unspecified contact dermatitis due to plants, except food Medical Established Patient with Poly Wagonerle [facility] 09/14/2019 Obesity due to excess calories Medical E stablished Patient with Poly Wagonerle [facility] 09/14/2019 Z68.37 - Body mass index (BM I) 37.0-37.9, adult Medical Established Patient with Poly Franco [facility] 09/14/2019 L25.5 - Unspecified contact dermatitis due to plants, except food Telemedicine with Poly Wagonerle [facility] 09/11/2019 Obesity due to excess calories Telemedicine with Poly Wagonerle [facility] 09/11/2019 Z68.37 - Body mass index (BM I) 37.0-37.9, adult Telemedicine with Poly Wagonerle [facility] 09/11/2019 Dermatitis due to contact wi th poison spencer Telemedicine with Poly Wagonerle [facility] 09/05/2019 Obesity due to excess calories Telemedicine with Poly Wagonerle [facility] 09/05/2019 Z68.37 - Body mass index (BM I) 37.0-37.9, adult Telemedicine with Poly Wagonerle [facility] 09/05/2019 Obesity due to excess calories Medical E stablished Patient with Miguel Sharpe [employer] 08/17/2019 Z68.37 - Body mass index (BM I) 37.0-37.9, adult Medical Established Patient with Miguel Sharpe [employer] 08/17/2019 Generalized anxiety disorder BH Establis hed Patient with Anh VIDAL 07/06/2019 Anxiety disorder NOS Medical New Patient with Allyson Floyd [employer]NAGER [employer] 07/06/2019 Depression Medical New Patient with Allyson Floyd [employer] 07/06/2019 Diabetes Risk Test Score was one score Medical New Patient with Allyson Floyd [employer] 07/06/2019 Idiopathic insomnia Medical New Patient with Allyson Floyd [employer] 07/06/2019 Obesity due to excess calories Medical N ew Patient with Allyson Nye [employer] 07/06/2019 Z68.39 - Body mass index (BM I) 39.0-39.9 adult Medical New Patient with Allyson Floyd [employer] 07/06/2019 Diagnosis COVID-19 Fatty liver Other chronic [...] Everywhere. * Coronavirus Disease (COVID-19): General Info (Citizen Of [place]) documented in this encounter Additional Source Comments INFORMATION SOURCE (unrecogn ized section and content) DATE CREATED AUTHOR 11/24/2017 [facility] DATE CREATED AUTHOR AUTHOR'S ORGANIZ ATION 08/26/2018 [facility] DATE CREATED AUTHOR AUTHOR'S ORGANIZ ATION 09/24/2020 [facility] DATE CREATED AUTHOR AUTHOR'S ORGANIZ ATION 05/14/2023 [facility] DATE CREATED AUTHOR AUTHOR'S ORGANIZ ATION 12/19/2023 [facility] EPIC Evaluations & Outcomes [...] TRANSVAGINAL, NON OB Dana Akins MD [address] [place] [address] [facility] Ul[facility]ound [address] [place] [address] Reason Comments Emesis multiple episodes si nce [...] 1 dose 0126 (Given - Provid er: Lian Allen) Care Teams (unrecognized sec tion and content) [employer] Tender Relationship Specialty Start Date End Date Miguel Sharpe, HOG BUYER - MANAGER PLAY PCP - General Family Medicine 04/08/20 [employer] T[employer] Relationship Specialty Start Date End Date Miguel SharpeIOANA - DIANELYS PCP - General Family Medicine 04/08/20 [employer] Tender Relationship Specialty Start Date End Date Miguel Sharpe, IOANA - MANAGER PLAY PCP - General Family Medicine 04/08/20 FOR [...] BE BASED ON THE PRIMARY CLINICAL RECORDS. [facility]. provides no warranty or guarantee of the accuracy or completeness of information in this document.
[2023-12-27 10:14] VITALS: BP 130/85; PULSE 100
== END 2023-12-27 10:40 | disposition home or self-care (01) ==
LOC: FBCO 07:02 → FBC 10:07
PROVIDERS: Visit Provider Obstetrics & Gynecology
DX: O36.63X0 Maternal care for excessive fetal growth, third trimester, not applicable or unspecified (principal)
CPT/HCPCS: 59025

== ENCOUNTER 2023-12-30 07:10 | Outpatient (OUT) | payer MEDICAID, SELFPAY ==
--- OUTSIDE RECORDS SUMMARY | 2023-12-30 07:13 | XMS_ITS | CCD ---
Author Organization [facility] Care Team Providers Care Electrician Supervisor Airplane Name Role Phone NO FAMILY PHYSICIAN, 837 Unavailable Unavail able FELIX GALVAN Unavailable Unavailable Leydi, Miguel Primary Care Provider [phone] Jackson Haas Primary Care Provider Miguel Sharpe Primary Care Provider [phone] Leydi Miguel M Primary Care Provider Miguel Sharpe CNP Primary Care Provider Leydi SALES ASSOCIATE KEY HOLDER - FARMWORKER MACHINE, Miguel M Primary Care Provider LEYDI MIGUEL M Referring Unavailable LEYDI, MIGUEL M Primary Care Unavailable Leydi SALES ASSOCIATE KEY HOLDER - DIANELYS, Miguel M Primary Care Provider Leydi SALES ASSOCIATE KEY HOLDER - FARMWORKER MACHINE, Miguel M Primary Care Provider Shona Lucio Primary Care Physician Yeison Sharpe SALES ASSOCIATE KEY HOLDER - FARMWORKER MACHINE, Miguel M Primary Care Provider Leydi SALES ASSOCIATE KEY HOLDER - FARMWORKER MACHINE, Miguel M Primary Care Provider LEYDI, MIGUEL [...] Hour] Drug Allergy 03-05-20 20 Wellbutrin SR [facility] Work Phone: Corticosteroids (6 sources) Triamcinolone Drug Allergy 10-14-19 14 Other (See Comments) [facility] Lisdexamfetamine (1 source) Lisdexamfetamine Drug Allergy 10-04-19 21 Vyvanse [facility] Work Phone: Naltrexone (4 sources) Naltrexone; Translations: [Naltrexone HCl 50 MG Oral Tablet] Drug Allergy 03-05-20 20 Naltrexone HCl [facility] Work Phone: (1 source) Triamcinolone; Translations: [TRIAMCINOLONE ACETONIDE] Drug Allergy 10-12-19 15 [facility] (16 sources) Triamcinolone; Translations: [Kenalog] Drug Allergy 07-06-19 20 [facility] Work Phone: (8 sources) Triamcinolone Drug Allergy 10-14-19 14 Other (See Comments), Other, Hives [facility] [place] (17 sources) Poison spencer Allergy to substance 07-20-19 20 [facility] Work Phone: (3 sources) buPROPion; Translations: [Wellbutrin SR 100 MG Oral Tablet Extended Release 12 Hour] Drug Allergy 03-05-20 20 Wellbutrin SR [facility] Work Phone: (3 sources) Naltrexone; Translations: [Naltrexone HCl 50 MG Oral Tablet] Drug Allergy 03-05-20 20 Naltrexone HCl [facility] Work Phone: Medications Current Medications [...] daily. 118 mL 1 12/17/2016 Active levonorgestrel 0.247460 mg/hr intrauterine system (17 sources) Progestin, Progestin-contai [...] Start: 09-10-2021 take 1 capsule by mo [facility] once daily in the morning VYVANSE [...] UA Negative Negative - 4(70) +++ mg/dL [facility] Blood, UA Negative Negative - 50 Chuy/mcL [facility] Clarity, UA Clear [facility] Color, UA Yellow [facility] Glucose, UA Negative Negative - 1999(110) ++++ mg/dL [facility] Interpretation and review of laboratory results Normal [facility] Ketones, UA Positive Negative - 160(16) ++++ mg/dL [facility] Leukocytes, UA Negative Negative - 500+++ Sadi/mcL [facility] Nitrite, UA Negative Negative - Positive [facility] pH, UA 6.5 5 - 9 [facility] Protein, UA Negative Negative - 1999(20) ++++ mg/dL [facility] Spec Grav, UA 1.025 1 - 1.03 [facility] Urobilinogen, UA 0.2 0.2 - 12 mg/dL [facility] HCG, Quanton 05-12-2023 HCG, Quant 9701.0 mIU/mL High <5 [facility] Comment on above: Result Comment: Non-preg premeno <=5 Postmeno <=8 Male <=3 If HCG results do not concur with clinical observations, additional testing to confirm results is recommended. Performed By: #### B HCG #### [facility] [address] [place] [address] [place] [address] Military Logistics Specialist: Mateusz Brand MD HCG, Quanton 05-07-2023 HCG, Quant 3514.0 mIU/mL High <5 [facility] Comment on above: Result Comment: Non-preg premeno <=5 Postmeno <=8 Male <=3 If HCG results do not concur with clinical observations, additional testing to confirm results is recommended. Performed By: #### B HCG #### [facility] [address] [place] [address] Military Logistics Specialist: Mateusz Brand MD HCG, Quanton 05-05-2023 HCG, Quant 2224.0 mIU/mL High <5 [facility] Comment on above: Result Comment: Non-preg premeno <=5 Postmeno <=8 Male <=3 If HCG results do not concur with clinical observations, additional testing to confirm results is recommended. Performed By: #### B HCG #### [facility] [address] [place] [address] Military Logistics Specialist: Mateusz Brand MD US PELVIS COMPLETE [...] Yousif Lamb MD 03/25/23 Final result Normal [facility] CBC with Diffon 03-24-2023 Abs. Basophil 0.06 k/uL Normal 0.00-0.20 [facility] Comment on above: Performed By: #### C DP, CG #### [address] [place], [place] [id number] Military Logistics Specialist: Mateusz Brand MD Abs.Imm.Granulocyte 0.03 k/uL Normal 0.00-0.30 [facility] Comment on above: Performed By: #### C TJ BHCG #### [address] [place], [place] [address] Military Logistics Specialist: Mateusz Brand MD Abs.Neutrophil (Seg) 7.07 k/uL Normal 1.50-8.10 [facility] Comment on above: Performed By: #### C TJ CG #### [address] [place] [address] Military Logistics Specialist: Mateusz Brand MD Basophils/100 WBC (Bld) 1 % Normal 0-2 [facility] Comment on above: Performed By: #### C TJ [facility] #### [address] [place], [place] [address] Military Logistics Specialist: Mateusz Brand MD Eosinophils (Bld) [#/Vol] 0.13 10*3/uL Normal 0.00-0.44 [facility] Comment on above: Performed By: #### C TJ BHCG #### [address] [place], [place] [address] Military Logistics Specialist: Mateusz Brand MD Eosinophils/100 WBC (Bld) 1 % Normal 1-4 [facility] Comment on above: Performed By: #### C TJ CG #### [address] [place] [address] Military Logistics Specialist: Mateusz Brand MD Erythrocyte distribution width (RBC) [Ratio] 11.9 % Normal 11.8-14.4 [facility] Comment on above: Performed By: #### C TJ BHCG #### [address] [place], [place] [id number] Military Logistics Specialist: Mateusz Brand MD Hematocrit (Bld) [Volume fraction] 37.8 % Normal 36.3-47.1 [facility] Comment on above: Performed By: #### C DP, BHCG #### [address] [place], [place] [phone] Military Logistics Specialist: Mateusz Brand MD Hemoglobin (Bld) [Mass/Vol] 13.3 g/dL Normal 11.9-15.1 [facility] Comment on above: Performed By: #### C TJ CG #### [address] [place] [id number] Military Logistics Specialist: Mateusz Brand MD Immature granulocytes/100 WBC (Bld) 0 % Normal 0 [facility] Comment on above: Performed By: #### C TJ CG #### [address] [place], [facility]83 Military Logistics Specialist: Mateusz Brand MD Lymphocytes (Bld) [#/Vol] 3.03 10*3/uL Normal 1.10-3.70 [facility] Comment on above: Performed By: #### C TJ, BHCG #### [address] [place] [id number] Military Logistics Specialist: Mateusz Brand MD Lymphocytes/100 WBC (Bld) 28 % Normal 24-43 [facility] Comment on above: Performed By: #### C TJ, BHCG #### [address] [place], [place] [phone] Military Logistics Specialist: Mateusz Brand MD MCH (RBC) [Entitic mass] 28.6 pg Normal 25.2-33.5 [facility] Comment on above: Performed By: #### C TJ, BHCG #### [address] [place] [id number] Military Logistics Specialist: Mateusz Brand MD MCHC (RBC) [Mass/Vol] 35.2 g/dL High 28.4-34.8 [facility] Comment on above: Performed By: #### C TJ [facility] #### [address] [place] [address] Military Logistics Specialist: Mateusz Brand MD MCV (RBC) [Entitic vol] 81.3 fL Low 82.6-102.9 [facility] Comment on above: Performed By: #### C TJ [facility] #### [address] [place], [facility]83 Military Logistics Specialist: Mateusz Brand MD Monocytes (Bld) [#/Vol] 0.60 10*3/uL Normal 0.10-1.20 [facility] Comment on above: Performed By: #### C TJ [facility] #### [address] [place], [place] [address] Military Logistics Specialist: Mateusz Brand MD Monocytes/100 WBC (Bld) 6 % Normal 3-12 [facility] Comment on above: Performed By: #### C TJ [facility] #### [address] [place], [facility]83 Military Logistics Specialist: Mateusz Brand MD Neutrophil (Seg) 64 % Normal 36-65 [facility] Comment on above: Performed By: #### C TJ [facility] #### [address] [place], [facility]83 Military Logistics Specialist: Matesuz Brand MD NRBC Automated 0.0 per 100 WBC Normal 0.0 [facility] Comment on above: Performed By: #### C TJ [facility] #### [address] [place], [place] [phone] Military Logistics Specialist: Mateusz Brand MD Platelet mean volume (Bld) [Entitic vol] 10.6 fL Normal 8.1-13.5 [facility] Comment on above: Performed By: #### C TJ, CG #### [facility] [address] [place], [place] [phone] Military Logistics Specialist: Mateusz Brand MD Platelets (Bld) [#/Vol] 231 10*3/uL Normal 138-453 [facility] Comment on above: Performed By: #### C TJ, BHCG #### [facility] [address] [place], [place] [phone] Military Logistics Specialist: Mateusz Brand MD RBC (Bld) [#/Vol] 4.65 10*6/uL Normal 3.95-5.11 [facility] Comment on above: Performed By: #### C TJ BHCG #### [facility] [address] [place], [place] [phone] Military Logistics Specialist: Mateusz Brand MD WBC (Bld) [#/Vol] 10.9 10*3/uL Normal 3.5-11.3 [facility] Comment on above: Performed By: #### C TJ CG #### [facility] [address] [place], [place] [phone] Military Logistics Specialist: Mateusz Brand MD HCG, Quanton 03-24-2023 HCG, Quant <1.0 Normal <5 [facility] Comment on above: Result Comment: Non-preg premeno <=5 Postmeno <=8 Male <=3 If HCG results do not concur with clinical observations, additional testing to confirm results is recommended. Performed By: #### C TJ BHCG #### [facility] [address] [place] [address] Military Logistics Specialist: Mateusz Brand MD HCG, ,Urineon 01-20 Beta HCG ( test) Ql (U) Negative Normal NEG [facility] Comment on above: Result Comment: Spec imens with hCG levels near the threshold of the test (25 mIU/mL) may give a negative or indeterminate result. In such cases, another test should be performed with a new specimen in 48-72 hours. If early is suspected clinically in this setting, correlation with quantitative serum b-hCG level is suggested. Tape [employer] [facility] has confirmed the use of plasma for this test. This has not been cleared or approved by the U.S. Food and Drug Administration. The FDA has determined that such clearance is not necessary. Performed By: #### U HCG #### [address] [place] [address] Military Logistics Specialist: Mateusz Brand MD OPERATIVE REPORTon OPERATIVE REPORT [address] [address] OPERATIVE REPORT PATIENT NAME: ESTEFANIA FLOREZ : 1995 MED REC NO: [id number] ROOM: ACCOUNT NO: [id number] ADMIT DATE: 01/20/2023 PROVIDER: Vickie Nichols MD [...] cervix in a graduated fashion to #14 [place] with Adeel dilators. Then, the hysteroscope was [...] good condition. VICKIE NICHOLS MD BIBIANA/[id number] Doc#: [id number] CC: Normal [facility] Cytologyon 01-01-2023 Cytology (NOTE) Path Number: [id number] DIAGNOSIS Imaged ThinPrep Pap - Cervical (1 [...] Abnormal Clinical History Intrauterine device Z01.419 Routine jacquard fixer exam without abnormal findings High risk HPV DNA testing is requested if the diagnosis is abnormal Processing Lab: [place] [id number] Interpretation performed at [address] [address] This Pap Test has been evaluated with [...] REPORT Patient [facility]: [facility]: [id number] [facility] [employer] [facility] ANATOMIC PATHOLOGY [address] [place] [address]. [place], [place] [address] Normal [facility] C-Reactive Proteinon 022 CRP [Mass/Vol] mg/L 0 - 5 mg/L [facility] CBC with Auto Differentialon 12-16-2021 Absolute Eos # 0.09 [facility] I Do Venues Absolute Immature Granulocyte 0.04 [facility] I Do Venues Absolute Lymph # 2.98 [facility] I Do Venues Absolute [place] # 0.51 [facility] I Do Venues Basophils (Bld) [#/Vol] 0.04 10*3/uL [facility] Basophils/100 WBC (Bld) 0 % 0 - 2 % [facility] Eosinophils/100 WBC (Bld) 1 % 1 - 4 % [facility] Hematocrit (Bld) [Volume fraction] 39.6 % 36.3 - 47.1 % [facility] Hemoglobin (Bld) [Mass/Vol] 13.1 g/dL 11.9 - 15.1 g/dL [facility] Immature granulocytes/100 WBC (Bld) 0 % 0 [facility] Lymphocytes/100 WBC (Bld) 33 % 24 - 43 % [facility] MCH (RBC) [Entitic mass] 28.2 pg 25.2 - 33.5 pg [facility] MCHC (RBC) [Mass/Vol] 33.1 g/dL 28.4 - 34.8 g/dL [facility] MCV (RBC) [Entitic vol] 85.3 fL 82.6 - 102.9 fL [facility] Monocytes/100 WBC (Bld) 6 % 3 - 12 % [facility] NRBC Automated 0.0 0.0 per 100 WBC [facility] Platelet distribution width (Bld) [Ratio] 12.0 % 11.8 - 14.4 % [facility] Platelet mean volume (Bld) [Entitic vol] 11.1 fL 8.1 - 13.5 fL [facility] Platelets (Bld) [#/Vol] 214 10*3/uL [facility] RBC (Bld) [#/Vol] 4.64 10*6/uL 3.95 - 5.1 1 m/uL [facility] Segmented neutrophils/100 WBC (Bld) 60 % 36 - 65 % [facility] Segs Absolute 5.49 [facility] WBC (Bld) [#/Vol] 9.2 10*3/uL [facility] Rheumatoid Factoron 12-17-19 22 Rheumatoid Factor <10 NINF [facility] Sedimentation Rateon 022 Sed Rate 5 [facility] Uric Acidon 12-16-2021 Urate [Mass/Vol] 4.2 mg/dL 2.4 - 5.7 mg/dL Zauber [facility] Basic Metabolic Panel w/ Ref yossi to MGOrdered By: Donny Hatfield on 10-15-2020 Anion gap [Moles/Vol] 13 mmol/L 9 - 17 mmol/L [employer] Phone: Calcium [Mass/Vol] 9.6 mg/dL 8.6 - 10. 4 mg/dL [employer] Phone: Chloride [Moles/Vol] 105 mmol/L 98 - 10 7 mmol/L [employer] Phone: CO2 [Moles/Vol] 22 mmol/L 20 - 31 mmol/L [employer] Phone: Creatinine [Mass/Vol] 0.62 mg/dL 0.50 - 0.90 mg/dL [employer] Phone: GFR >60 >60 mL/min [employer] Phone: GFR Non- >60 >60 mL/min [employer] Phone: Glucose [Mass/Vol] 110 mg/dL High 70 - 99 mg/dL [employer] Phone: Interpretation and review of laboratory results Abnormal [employer] Phone: Potassium [Moles/Vol] 3.5 mmol/L Low 3.7 - 5.3 mmol/L [employer] Phone: Sodium [Moles/Vol] 140 mmol/L 135 - 144 mmol/L [employer] Phone: Urea nitrogen (BldV) [Mass/Vol] 12 mg/dL 6 - 20 mg/dL [employer] Phone: Urea nitrogen/Creatinine (Bld) [Mass ratio] 19 [employer] Phone: [employer] Work Phone: CBC Auto DifferentialOrdered By: Donny Hatfield on 10-15-2020 Absolute Eos # 0.19 [employer] [facility] Work Phone: Absolute Immature Granulocyte 0.06 [employer] Work Phone: Absolute Lymph # 2.50 [employer] [facility] Work Phone: Absolute [place] # 0.75 [employer] [facility] Work Phone: Basophils (Bld) [#/Vol] 0.04 10*3/uL [employer] Work Phone: Basophils/100 WBC (Bld) 0 % 0 - 2 % [employer] Phone: Differential Type NOT REPORTED [employer] Phone: Eosinophils/100 WBC (Bld) 1 % 1 - 4 % [employer] Phone: Hematocrit (Bld) [Volume fraction] 42.1 % 36.3 - 47.1 % [employer] Phone: Hemoglobin.gastrointes tinal spec 1 Ql (Stl) 14.0 g/dL 11.9 - 15.1 g/dL [employer] Phone: Immature granulocytes/100 WBC (Bld) 0 % 0 [employer] Phone: Interpretation and review of laboratory results Abnormal [employer] Phone: Lymphocytes/100 WBC (Bld) 14 % Low 24 - 43 % [employer] Phone: MCH (RBC) [Entitic mass] 28.1 pg 25.2 - 33.5 pg [employer] Phone: MCHC (RBC) [Mass/Vol] 33.3 g/dL 28.4 - 34.8 g/dL [employer] Phone: MCV (RBC) [Entitic vol] 84.4 fL 82.6 - 102.9 fL [employer] Phone: Monocytes/100 WBC (Bld) 4 % 3 - 12 % [employer] Phone: NRBC Automated 0.0 0.0 per 100 WBC [employer] Phone: Platelet distribution width (Bld) [Ratio] 11.9 % 11.8 - 14.4 % [employer] Phone: Platelet Estimate NOT REPORTED [employer] Phone: Platelet mean volume (Bld) [Entitic vol] 10.7 fL 8.1 - 13.5 fL [employer] Phone: Platelets (Bld) [#/Vol] 220 10*3/uL [employer] Phone: RBC (Bld) [#/Vol] 4.99 10*6/uL 3.95 - 5.1 1 m/uL [employer] Phone: RBC (Bld) [#/Vol] NOT REPORTED [employer] Phone: Segmented neutrophils/100 WBC (Bld) 81 % High 36 - 65 % [employer] Phone: Segs Absolute 14.20 High [employer] Work Phone: WBC (Bld) [#/Vol] 17.7 10*3/uL High [employer] Work Phone: WBC (Bld) [#/Vol] NOT REPORTED [employer] Phone: [employer] Phone: CT ABDOMEN PELVIS W IV CONTR AST Additional Contrast? NoneOrdered By: Donny Hatfield on 10-15-2020 1. Marked hepatic steatosis. 2. Hepatomegaly. 3. Mild colonic diverticulosis without evidence of diverticulitis. [employer] Phone: EXAMINATION: CT OF T HE ABDOMEN [...] PROVIDED HISTORY: abd pain TECHNOLOGIST PROVIDED HISTORY: [facility] pain Decision Support Exception [...] subcutaneous soft tissues are unremarkable in appearance. [employer] Work Phone: Jean Marie, [facility] Incoming Radiant Results From [employer] - 10/15/2020 1:48 AM EDT EXAMINATION: CT [...] PROVIDED HISTORY: abd pain TECHNOLOGIST PROVIDED HISTORY: [facility] pain Decision Support Exception [...] Mild colonic diverticulosis without evidence of diverticulitis. [employer] Phone: [employer] Phone: HCG Qualitative, SerumOrdere d By: Donny Htafield on 10-15-2020 hCG Qual Negative NEGATIVE [employer] Phone: Comment on above: Specimens with hCG l evels near the threshold of the test (25 mIU/mL) may give a negative or indeterminate result. In such cases, another test should be performed with a new specimen in 48-72 hours. If early is suspected clinically in this setting, correlation with quantitative serum b-hCG level is suggested. [employer] has confirmed the use of plasma for this test. This has not been cleared or approved by the U.S. Food and Drug Administration. The FDA has determined that such clearance is not necessary. [employer] Phone: Hepatic Function PanelOrdere d By: Donny Hatfield on 10-15-2020 Albumin [Mass/Vol] 4.6 g/dL 3.5 - 5.2 g/dL [employer] Phone: Albumin/Globulin [Mass ratio] 1.6 {ratio} [employer] Phone: ALP (Bld) [Catalytic activity/Vol] 59 U/L 35 - 104 U/L [employer] Phone: ALT [Catalytic activity/Vol] 38 U/L High 5 - 33 U/L [employer] Phone: AST [Catalytic activity/Vol] 24 U/L <32 [employer] Phone: Bilirubin [Mass/Vol] 0.48 mg/dL 0.3 - 1 .2 mg/dL [employer] Phone: Bilirubin, Indirect CANNOT BE CALCULATED 0.00 - 1.00 mg/dL [employer] Phone: Bilirubin.indirect [Mass/Vol] mg/dL <0.31 mg/dL [employer] Phone: Free PSA/Total PSA [Mass fraction] 7.4 g/dL 6.4 - 8.3 g/dL [employer] Phone: Globulin NOT REPORTED 1.5 - 3.8 g/dL [employer] Phone: Interpretation and review of laboratory results Abnormal [employer] Phone: Laboratory - Chemistry and C hemistry - challengeOrdered By: Donny Hatfield on 10-15-2020 GFR/1.73 sq M.predicted MDRD (S/P/Bld) [Vol rate/Area] [employer] Phone: Comment on above: Average GFR for 20-2 9 years old: 116 mL/min/1.73sq m Chronic Kidney Disease: <60 mL/min/1.73sq m Kidney failure: <15 mL/min/1.73sq m eGFR calculated using average adult body mass. Additional eGFR calculator available at: http://www.[employer]/multiple_crcl_2012.htm Stage 1: Some kidney damage normal GFR Stage 2: Mild kidney damage GFR 60-89 Stage 3: Moderate kidney damage GFR 30-59 Stage 4: Severe kidney damage GFR 15-29 Stage 5: Severe kidney damage GFR <15 ESRD - chronic treatment by dialysis or transplant Lactic Acid, PlasmaOrdered B y: Donny Hatfield on 10-15-2020 Lactate [Moles/Vol] 1.1 mmol/L 0.5 - 2. 2 mmol/L [employer] Work Phone: Lactic Acid, Whole Blood NOT REPORTED 0.7 - 2.1 mmol/L [employer] Phone: [employer] Phone: LipaseOrdered By: Cuco on 10-15-2020 Lipase [Catalytic activity/Vol] 27 U/L 13 - 60 U/L [employer] Phone: MagnesiumOrdered By: Donny Hatfield on 10-15-2020 Magnesium [Mass/Vol] 1.8 mg/dL 1.6 - 2 .6 mg/dL [employer] Phone: [employer] Phone: Microscopic UrinalysisOrdere d By: Donny Hatfield on 10-15-2020 - [employer] Work Phone: Amorphous, UA NOT REPORTED None Tape TV [facility] Work Phone: Bacteria, UA 1+ Abnormal None [employer] Work Phone: Casts UA NOT REPORTED /LPF [facility] Work Phone: Crystals, UA NOT REPORTED None /HPF [employer] [facility] Work Phone: Epithelial Cells UA 2 TO 5 [employer] Work Phone: Interpretation and review of laboratory results Abnormal [employer] Work Phone: Mucus, UA 1+ Abnormal None [facility] Work Phone: Other Observations UA NOT REPORTED NOT REQ. M [facility] Work Phone: RBC, UA 2 TO 5 [facility] Work Phone: Renal Epithelial, UA NOT REPORTED 0 /HPF [facility] Work Phone: Trichomonas, UA NOT REPORTED None [facility] Work Phone: WBC, UA 0 TO 2 [facility] Work Phone: Yeast, UA NOT REPORTED None [facility] Work Phone: [facility] Work Phone: No Panel InformationOrdered By: Donny Hatfield on 10-15-2020 [facility] Work Phone: Urinalysis Reflex to Culture Ordered By: Donny Hatfield on 10-15-2020 Bilirubin Urine Negative NEGATIVE [facility] Work Phone: Color, UA YELLOW YELLOW [facility] Work Phone: Glucose, Ur Negative NEGATIVE [facility] Work Phone: Interpretation and review of laboratory results Abnormal [facility] Work Phone: Ketones Ql (U) Negative NEGATIVE [facility] Work Phone: Leukocyte esterase Test strip Ql (U) Negative NEGATIVE [facility] Work Phone: Nitrite, Urine Negative NEGATIVE [facility] Work Phone: pH, UA 5.0 [facility] Work Phone: Protein, UA Negative NEGATIVE [facility] Work Phone: Specific [place], UA 1.010 [facility] [employer] Work Phone: Turbidity UA CLEAR CLEAR [facility] Work Phone: Urinalysis Comments NOT REPORTED [facility] Work Phone: Urine Hgb 2+ Abnormal NEGATIVE [facility] Phone: Urobilinogen, Urine Normal Normal [facility] Phone: [employer] Work Phone: Comp Metabolic Profon 2020 (cont.) Normal [facility] Comment on above: Result Comment: Aver age GFR for 20-29 years old: 116 mL/min/1.73sq m Chronic Kidney Disease: <60 mL/min/1.73sq m Kidney failure: <15 mL/min/1.73sq m eGFR calculated using average adult body mass. Additional eGFR calculator available at: http://www.[employer]/multiple_crcl_2011.htm Performed By: #### L IPRF, CDP, CP, TSHX #### [facility] [employer] [address] [place] [address] [phone] Military Logistics Specialist: Chato Aguirre MD Albumin [Mass/Vol] 4.3 g/dL Normal 3.5-5.2 [facility] Comment on above: Performed By: #### L IPRF, CDP, CP, TSHX #### [employer] [address] [place] [address] [phone] Military Logistics Specialist: Chato Aguirre MD Albumin/Glob Ratio 1.3 Normal 1.0-2.5 [facility] Comment on above: Performed By: #### L IPRF, CDP, CP, TSHX #### [employer] [address] [place] [address] [phone] Military Logistics Specialist: Chato Aguirre MD Alkaline Phos 49 U/L Normal 35-104 [facility] Comment on above: Performed By: #### L IPRF, CDP, CP, TSHX #### [employer] [address] [place] [address] [phone] Military Logistics Specialist: Chato Aguirre MD ALT [Catalytic activity/Vol] 36 U/L High 5-33 [facility] Comment on above: Performed By: #### L IPRF, CDP, CP, TSHX #### [facility] [address] [place] [address] [phone] Military Logistics Specialist: Chato Aguirre MD Anion gap [Moles/Vol] 11 mmol/L Normal 9-17 [facility] Comment on above: Performed By: #### L IPRF, CDP, CP, TSHX #### [facility] [address] [place] [address] [phone] [employer] Logistics Specialist: Chato Aguirre MD AST [Catalytic activity/Vol] 27 U/L Normal <32 [facility] Comment on above: Performed By: #### L IPRF, CDP, CP, TSHX #### [facility] [address] [place] [address] [phone] Military Logistics Specialist: Chtao Aguirre MD Bilirubin [Mass/Vol] 0.34 mg/dL Normal 0.3-1.2 [facility] Comment on above: Performed By: #### L IPRF, CDP, CP, TSHX #### [facility] [address] [place] [address] [phone] Military Logistics Specialist: Chato Aguirre MD Calcium [Mass/Vol] 9.5 mg/dL Normal 8.6-10.4 [facility] Comment on above: Performed By: #### L IPRF, CDP, CP, TSHX #### [facility] [address] [place] [address] [phone] [employer] Logistics Specialist: Chato Aguirre MD Chloride [Moles/Vol] 102 mmol/L Normal 98-107 [facility] Comment on above: Performed By: #### L IPRF, CDP, CP, TSHX #### [facility] [address] [place] [address] [phone] [employer] Logistics Specialist: Chato Aguirre MD CO2 [Moles/Vol] 22 mmol/L Normal 20-31 [facility] Comment on above: Performed By: #### L IPRF, CDP, CP, TSHX #### [facility] [address] [place] [address] [phone] [employer] Logistics Specialist: Chato Aguirre MD Creatinine [Mass/Vol] 0.46 mg/dL Low 0.50-0.90 [facility] Comment on above: Performed By: #### L IPRF, CDP, CP, TSHX #### [facility] [address] [place] [address] [phone] [employer] Logistics Specialist: Chato Aguirre MD GFR, Amer >60 Normal >60 [facility] Comment on above: Performed By: #### L IPRF, CDP, CP, TSHX #### [facility] [address] [place] [address] [phone] [employer] Logistics Specialist: Chato Aguirre MD GFR,non Amer >60 Normal >60 [facility] Comment on above: Performed By: #### L IPRF, CDP, CP, TSHX #### [facility] [address] [place] [address] [phone] Military Logistics Specialist: Chato Aguirre MD Glucose [Mass/Vol] 92 mg/dL Normal 70-99 [facility] Comment on above: Performed By: #### L IPRF, CDP, CP, TSHX #### [facility] [address] [place] [address] [phone] Military Logistics Specialist: Chato Aguirre MD Potassium [Moles/Vol] 4.2 mmol/L Normal 3.7-5.3 [facility] Comment on above: Performed By: #### L IPRF, CDP, CP, TSHX #### [facility] [address] [place] [address] [phone] Military Logistics Specialist: Chato Aguirre MD Protein [Mass/Vol] 7.5 g/dL Normal 6.4-8.3 [facility] Comment on above: Performed By: #### L IPRF, CDP, CP, TSHX #### [employer] [address] [place] [address] [phone] Military Logistics Specialist: Chato Aguirre MD Sodium [Moles/Vol] 135 mmol/L Normal 135-144 [facility] Comment on above: Performed By: #### L IPRF, CDP, CP, TSHX #### [facility] [employer] [address] [place] [address] [phone] Military Logistics Specialist: Chato Aguirre MD Urea nitrogen [Mass/Vol] 11 mg/dL Normal 6-20 [facility] Comment on above: Performed By: #### L IPRF, CDP, CP, TSHX #### [facility] [address] [place] [address] [phone] Military Logistics Specialist: Chato Aguirre MD Lipid Prof, Fastingon 2020 Cholesterol [Mass/Vol] 186 mg/dL Normal <200 [facility] Comment on above: Result Comment: Cholesterol Guidelines: <200 Desirable 200-240 Borderline >240 Undesirable Performed By: #### L IPRF, CDP, CP, TSHX #### [facility] [address] [place] [address] [phone] Military Logistics Specialist: Chato Aguirre MD Cholesterol in HDL [Mass/Vol] 49 mg/dL Normal >40 [facility] Comment on above: Result Comment: HDL Guidelines: <40 Undesirable 40-59 Borderline >59 Desirable Performed By: #### L IPRF, CDP, CP, TSHX #### [employer] [address] [place] [address] [phone] Military Logistics Specialist: Chato Aguirre MD Cholesterol in LDL [Mass/Vol] 102 mg/dL Normal 0-130 [facility] Comment on above: Result Comment: LDL Guidelines: <100 Desirable 100-129 Near to/above Desirable 130-159 Borderline >159 Undesirable Direct (measured) LDL and calculated LDL are not interchangeable tests. Performed By: #### L IPRF, CDP, CP, TSHX #### [employer] [address] [place] [address] [phone] Military Logistics Specialist: Chato Aguirre MD Cholesterol.total/Chol esterol in HDL [Mass ratio] 3.8 {ratio} Normal <5 [facility] Comment on above: Performed By: #### L IPRF, CDP, CP, TSHX #### [employer] [address] [place] [address] [phone] Military Logistics Specialist: Chato Aguirre MD Triglyceride,Fasting 173 mg/dL High <150 [facility] Comment on above: Result Comment: Triglyceride Guidelines: <150 Desirable 150-199 Borderline 200-499 High >499 Very high Based on AHA Guidelines for fasting triglyceride, February 2012. Performed By: #### L IPRF, CDP, CP, TSHX #### [facility] [employer] [facility] [place], [place] [phone] Military Logistics Specialist: Chato Aguirre MD TSH w/reflex to FT4on 2020 TSH Qn 3.38 m[IU]/L Normal 0.30-5.00 [facility] Comment on above: Performed By: #### L IPRF, CDP, CP, TSHX #### [facility] [employer] [address] [place] [address] [phone] Military Logistics Specialist: Chato Aguirre MD CBC Auto DifferentialOrdered By: Miguel Sharpe on 09-23-2020 [employer] Eos # 0.14 [employer] [facility] Work Phone: [employer] Immature Granulocyte <0.03 [employer] Work Phone: [employer] Lymph # 2.71 [facility] Work Phone: [employer] Laramie # 0.48 [facility] Work Phone: Basophils (Bld) [#/Vol] 0.05 10*3/uL [employer] Work Phone: Basophils/100 WBC (Bld) 1 % 0 - 2 % [employer] Work Phone: Differential Type NOT REPORTED [employer] Work Phone: Eosinophils/100 WBC (Bld) 2 % 1 - 4 % [employer] Phone: Hematocrit (Bld) [Volume fraction] 42.9 % 36.3 - 47.1 % [employer] Phone: Hemoglobin.gastrointes tinal spec 1 Ql (Stl) 13.5 g/dL 11.9 - 15.1 g/dL [employer] Phone: Immature granulocytes/100 WBC (Bld) 0 % 0 [employer] Phone: Lymphocytes/100 WBC (Bld) 30 % 24 - 43 % [employer] Phone: MCH (RBC) [Entitic mass] 27.6 pg 25.2 - 33.5 pg [employer] Phone: MCHC (RBC) [Mass/Vol] 31.5 g/dL 28.4 - 34.8 g/dL [employer] Phone: MCV (RBC) [Entitic vol] 87.6 fL 82.6 - 102.9 fL [employer] Phone: Monocytes/100 WBC (Bld) 5 % 3 - 12 % [employer] Phone: NRBC Automated 0.0 0.0 per 100 WBC [employer] Phone: Platelet distribution width (Bld) [Ratio] 12.4 % 11.8 - 14.4 % [employer] Phone: Platelet Estimate NOT REPORTED [employer] Phone: Platelet mean volume (Bld) [Entitic vol] 11.6 fL 8.1 - 13.5 fL [employer] Phone: Platelets (Bld) [#/Vol] 246 10*3/uL [employer] Phone: RBC (Bld) [#/Vol] 4.90 10*6/uL 3.95 - 5.1 1 m/uL [employer] Work Phone: RBC (Bld) [#/Vol] NOT REPORTED [employer] Phone: Segmented neutrophils/100 WBC (Bld) 62 % 36 - 65 % [employer] Work Phone: Segs Absolute 5.79 [employer] Work Phone: WBC (Bld) [#/Vol] 9.2 10*3/uL [employer] Work Phone: WBC (Bld) [#/Vol] NOT REPORTED [employer] Phone: CBC with Diffon 09-23-2020 Abs. Basophil 0.05 k/uL Normal 0.00-0.20 [facility] Comment on above: Performed By: #### L IPRF, CDP, CP, TSHX #### [facility] [address] [place] [address] Military Logistics Specialist: Chato Aguirre MD Abs.Imm.Granulocyte <0.03 Normal 0.00-0.30 [facility] Comment on above: Performed By: #### L IPRF, CDP, CP, TSHX #### [employer] [address] [place] [address] Military Logistics Specialist: Chato Aguirre MD Abs.Neutrophil (Seg) 5.79 k/uL Normal 1.50-8.10 [facility] Comment on above: Performed By: #### L IPRF, CDP, CP, TSHX #### [employer] [address] [place] [address] [phone] Military Logistics Specialist: Chato Aguirre MD Basophils/100 WBC (Bld) 1 % Normal 0-2 [facility] Comment on above: Performed By: #### L IPRF, CDP, CP, TSHX #### [facility] [employer] [address] [place] [address] Military Logistics Specialist: Chato Aguirre MD Eosinophils (Bld) [#/Vol] 0.14 10*3/uL Normal 0.00-0.44 [facility] Comment on above: Performed By: #### L IPRF, CDP, CP, TSHX #### [facility] [address] [place] [address] [phone] [employer] Logistics Specialist: Chato Aguirre MD Eosinophils/100 WBC (Bld) 2 % Normal 1-4 [facility] Comment on above: Performed By: #### L IPRF, CDP, CP, TSHX #### [address] [address] Military Logistics Specialist: Chato Aguirre MD Erythrocyte distribution width (RBC) [Ratio] 12.4 % Normal 11.8-14.4 [facility] Comment on above: Performed By: #### L IPRF, CDP, CP, TSHX #### [address] [address] Military Logistics Specialist: Chato Aguirre MD Hematocrit (Bld) [Volume fraction] 42.9 % Normal 36.3-47.1 [facility] Comment on above: Performed By: #### L IPRF, CDP, CP, TSHX #### [facility] [address] [place] [address] [phone] Military Logistics Specialist: Chato Aguirre MD Hemoglobin (Bld) [Mass/Vol] 13.5 g/dL Normal 11.9-15.1 [facility] Comment on above: Performed By: #### L IPRF, CDP, CP, TSHX #### [facility] [address] [place] [address] [phone] [employer] Logistics Specialist: Chato Aguirre MD Immature granulocytes/100 WBC (Bld) 0 % Normal 0 [facility] Comment on above: Performed By: #### L IPRF, CDP, CP, TSHX #### [address] [address] Military Logistics Specialist: Chato Aguirre MD Lymphocytes (Bld) [#/Vol] 2.71 10*3/uL Normal 1.10-3.70 [facility] Comment on above: Performed By: #### L IPRF, CDP, CP, TSHX #### [address] [address] Military Logistics Specialist: Chato Aguirre MD Lymphocytes/100 WBC (Bld) 30 % Normal 24-43 [facility] Comment on above: Performed By: #### L IPRF, CDP, CP, TSHX #### [place] [address] [employer] Log[employer] Specialist: Chato Aguirre MD MCH (RBC) [Entitic mass] 27.6 pg Normal 25.2-33.5 [facility] Comment on above: Performed By: #### L IPRF, CDP, CP, TSHX #### [place] [address] Military Logistics Specialist: Chato Aguirre MD MCHC (RBC) [Mass/Vol] 31.5 g/dL Normal 28.4-34.8 [facility] Comment on above: Performed By: #### L IPRF, CDP, CP, TSHX #### [place] [address] [employer] Logistics Specialist: Chato Aguirre MD MCV (RBC) [Entitic vol] 87.6 fL Normal 82.6-102.9 [facility] Comment on above: Performed By: #### L IPRF, CDP, CP, TSHX #### [facility] [address] [place] [address] Military Logistics Specialist: Chato Aguirre MD Monocytes (Bld) [#/Vol] 0.48 10*3/uL Normal 0.10-1.20 [facility] Comment on above: Performed By: #### L IPRF, CDP, CP, TSHX #### [address] [address] Military Logistics Specialist: Chato Aguirre MD Monocytes/100 WBC (Bld) 5 % Normal 3-12 [facility] Comment on above: Performed By: #### L IPRF, CDP, CP, TSHX #### [address] [address] [employer] Logistics Specialist: Chato Aguirre MD Neutrophil (Seg) 62 % Normal 36-65 [facility] Comment on above: Performed By: #### L IPRF, CDP, CP, TSHX #### [address] [address] Military Logistics Specialist: Chato Aguirre MD NRBC Automated 0.0 per 100 WBC Normal 0.0 [facility] Comment on above: Performed By: #### L IPRF, CDP, CP, TSHX #### [address] [address] Military Logistics Specialist: Chato Aguirre MD Platelet mean volume (Bld) [Entitic vol] 11.6 fL Normal 8.1-13.5 [facility] Comment on above: Performed By: #### L IPRF, CDP, CP, TSHX #### [address] [address] [employer] Logistics Specialist: Chato Aguirre MD Platelets (Bld) [#/Vol] 246 10*3/uL Normal 138-453 [facility] Comment on above: Performed By: #### L IPRF, CDP, CP, TSHX #### [address] [address] Military Logistics Specialist: Chato Aguirre MD RBC (Bld) [#/Vol] 4.90 10*6/uL Normal 3.95-5.11 [facility] Comment on above: Performed By: #### L IPRF, CDP, CP, TSHX #### [address] [address] Military Logistics Specialist: Chato Aguirre MD WBC (Bld) [#/Vol] 9.2 10*3/uL Normal 3.5-11.3 [facility] Comment on above: Performed By: #### L IPRF, CDP, CP, TSHX #### [address] [address] Military Logistics Specialist: Chato Aguirre MD Auto Diff Performed NOT REPORTED Normal [facility] Comment on above: Performed By: #### L IPRF, CDP, CP, TSHX #### [address] [address] Military Logistics Specialist: Chato Aguirre MD Platelet Estimate NOT REPORTED Normal [facility] Comment on above: Performed By: #### L IPRF, CDP, CP, TSHX #### [address] [address] Military Logistics Specialist: Chato Aguirre MD RBC morphology finding Nom (Bld) NOT REPORTED Normal [facility] Comment on above: Performed By: #### L IPRF, CDP, CP, TSHX #### [address] [address] Military Logistics Specialist: Chato Aguirre MD WBC Morphology NOT REPORTED Normal [facility] Comment on above: Performed By: #### L IPRF, CDP, CP, TSHX #### [facility] [address] [place] [address] 44878 Military Logistics Specialist: Chato Aguirre MD Comp Metabolic Profon 2020 BUN/CRE Ratio NOT REPORTED Normal 02-17 [facility] Comment on above: Performed By: #### L IPRF, CDP, CP, TSHX #### [address] [address] Military Logistics Specialist: Chato Aguirre MD Staging: NOT REPORTED Normal [facility] Comment on above: Performed By: #### L IPRF, CDP, CP, TSHX #### [employer] [address] [place] [address] Military Logistics Specialist: Chato Aguirre MD Comprehensive Metabolic Pane lOrdered By: Miguel Sharpe on 09-23-2020 Albumin [Mass/Vol] 4.3 g/dL 3.5 - 5.2 g/dL [employer] Phone: Albumin/Globulin [Mass ratio] 1.3 {ratio} [employer] Phone: ALP (Bld) [Catalytic activity/Vol] 49 U/L 35 - 104 U/L [employer] Phone: ALT [Catalytic activity/Vol] 36 U/L High 5 - 33 U/L [employer] Phone: Anion gap [Moles/Vol] 11 mmol/L 9 - 17 mmol/L [employer] Phone: AST [Catalytic activity/Vol] 27 U/L <32 [employer] Phone: Bilirubin [Mass/Vol] 0.34 mg/dL 0.3 - 1 .2 mg/dL [employer] Phone: Calcium [Mass/Vol] 9.5 mg/dL 8.6 - 10. 4 mg/dL [employer] Phone: Chloride [Moles/Vol] 102 mmol/L 98 - 10 7 mmol/L [employer] Phone: CO2 [Moles/Vol] 22 mmol/L 20 - 31 mmol/L [employer] Phone: Creatinine [Mass/Vol] 0.46 mg/dL Low 0.50 - 0.90 mg/dL [employer] Phone: Free PSA/Total PSA [Mass fraction] 7.5 g/dL 6.4 - 8.3 g/dL [employer] Phone: GFR >60 >60 mL/min [employer] Phone: GFR Non- >60 >60 mL/min [employer] Phone: GFR/1.73 sq M.predicted MDRD (S/P/Bld) [Vol rate/Area] [employer] Phone: Comment on above: Average GFR for 20-2 9 years old: 116 mL/min/1.73sq m Chronic Kidney Disease: <60 mL/min/1.73sq m Kidney failure: <15 mL/min/1.73sq m eGFR calculated using average adult body mass. Additional eGFR calculator available at: http://www.[employer]_crcl_2012.htm GFR/1.73 sq M.predicted MDRD (S/P/Bld) [Vol rate/Area] NOT REPORTED [employer] Phone: Glucose [Mass/Vol] 92 mg/dL 70 - 99 mg/dL [employer] Phone: Potassium [Moles/Vol] 4.2 mmol/L 3.7 - 5.3 mmol/L [employer] Phone: Sodium [Moles/Vol] 135 mmol/L 135 - 144 mmol/L [employer] Phone: Urea nitrogen (BldV) [Mass/Vol] 11 mg/dL 6 - 20 mg/dL [employer] Phone: Urea nitrogen/Creatinine (Bld) [Mass ratio] NOT REPORTED [employer] Phone: Laboratory - Chemistry and C hemistry - challengeOrdered By: Miguel Sharpe on 09-23-2020 Albumin [Mass/Vol] 4.3 g/dL (3.5-5.2 ) [facility] Work Phone: Comment on above: Note: Responsible Ob flour mixer: [employer] (9457) ALT [Catalytic activity/Vol] 36 U/L High (5-33 ) [facility] Work Phone: Comment on above: Note: Responsible Ob flour mixer: [employer]EEV [employer] (3003) Anion gap [Moles/Vol] 11 mmol/L (9-17 ) [facility] Work Phone: Comment on above: Note: Responsible Ob flour mixer: [employer] (3003) AST [Catalytic activity/Vol] 27 U/L (<32 ) [facility] Work Phone: Comment on above: Note: Responsible Ob flour mixer: [employer] (3003) Bilirubin [Mass/Vol] 0.34 mg/dL (0.3-1.2 ) [facility] Work Phone: Comment on above: Note: Responsible Ob flour mixer: [employer] (3003) Calcium [Mass/Vol] 9.5 mg/dL (8.6-10.4 ) [facility] Work Phone: Comment on above: Note: Responsible Ob flour mixer: [employer] (3003) Chloride [Moles/Vol] 102 mmol/L (98-107 ) [facility] Work Phone: Comment on above: Note: Responsible Ob flour mixer: [employer] (3003) Cholesterol [Mass/Vol] 186 mg/dL (<200 ) [facility] Work Phone: Comment on above: Note: Cholesterol Gu idelines:<200 [id number] Borderline>240 UndesirableResponsible Observer: [employer] (3003) Cholesterol.total/Chol esterol in HDL [Mass ratio] 3.8 {ratio} (<5 ) [facility] Work Phone: Comment on above: Note: Responsible Ob flour mixer: [employer] (3003) CO2 [Moles/Vol] 22 mmol/L (20-31 ) [facility] Work Phone: Comment on above: Note: Responsible Ob flour mixer: [employer] (3003) Creatinine [Mass/Vol] 0.46 mg/dL Low (0.50- 0.90 ) [facility] Work Phone: Comment on above: Note: Responsible Ob flour mixer: ABBIEEV AUTOFILE (3003) Glucose [Mass/Vol] 92 mg/dL (70-99 ) [facility] Work Phone: Comment on above: Note: Responsible Ob flour mixer: [employer] (3003) Magnesium [Mass/Vol] 49 mg/dL (>40 ) [facility] Work Phone: Comment on above: Note: HDL Guidelines :<40 [id number] Borderline>59 DesirableResponsible Observer: SHEA AUTOFILE (3003) Magnesium [Mass/Vol] 102 mg/dL (0-130 ) [facility] Work Phone: Comment on above: Note: LDL Guidelines :<100 [id number] Near to/above [id number] Borderline>159 UndesirableDirect (measured) LDL and calculated LDL are not interchangeable tests.Responsible Observer: SHEA [employer] (3003) Magnesium [Mass/Vol] 173 mg/dL High (<150 ) [facility] Work Phone: Comment on above: Note: Triglyceride G uidelines:<150 [id number] High>499 Very highBased on AHA Guidelines for fasting triglyceride, February 2012.Responsible Observer: SHEA [employer]OFILE (3003) Potassium [Moles/Vol] 4.2 mmol/L (3.7-5.3 ) [facility] Work Phone: Comment on above: Note: Responsible Ob flour mixer: ABBIEEV AUTOFILE (3003) Protein [Mass/Vol] 7.5 g/dL (6.4-8.3 ) [facility] Work Phone: Comment on above: Note: Responsible Ob flour mixer: ABBIEEV AUTOFILE (3003) Sodium [Moles/Vol] 135 mmol/L (135-144 ) [facility] Work Phone: Comment on above: Note: Responsible Ob flour mixer: CEEV [employer]OFILE (3003) Urea nitrogen [Mass/Vol] 11 mg/dL (6-20 ) [facility] Work Phone: Comment on above: Note: Responsible Ob flour mixer: CEEV AUTOFILE (3003) Laboratory - Hematology and Cell countsOrdered By: Miguel Sharpe on 09-23-2020 Basophils/100 WBC (Bld) 1 % (0-2 ) [facility] Work Phone: Comment on above: Note: Responsible Ob flour mixer: XNV AUTOFILE (3018) Eosinophils (Bld) [#/Vol] 0.14 10*3/uL (0.00-0.44 ) [facility] Work Phone: Comment on above: Note: Responsible Ob flour mixer: XNV AUTOFILE (3018) Eosinophils/100 WBC (Bld) 2 % (1-4 ) [facility] Work Phone: Comment on above: Note: Responsible Ob flour mixer: XNV AUTOFILE (3018) Erythrocyte distribution width (RBC) [Ratio] 12.4 % (11.8-14.4 ) [facility] Work Phone: Comment on above: Note: Responsible Ob flour mixer: XNV AUTOFILE (3018) Hematocrit (Bld) [Volume fraction] 42.9 % (36.3-47.1 ) [facility] Work Phone: Comment on above: Note: Responsible Ob flour mixer: XNV AUTOFILE (3018) Hemoglobin (Bld) [Mass/Vol] 13.5 g/dL (11.9-15.1 ) [facility] Work Phone: Comment on above: Note: Responsible Ob flour mixer: [employer]FILE (3018) Immature granulocytes/100 WBC (Bld) 0 % (0 ) [facility] Work Phone: Comment on above: Note: Responsible Ob flour mixer: XNV AUTOFILE (3018) Lymphocytes (Bld) [#/Vol] 2.71 10*3/uL (1.10-3.70 ) [facility] Work Phone: Comment on above: Note: Responsible Ob flour mixer: XNV [employer]OFILE (3018) Lymphocytes/100 WBC (Bld) 30 % (24-43 ) [facility] Work Phone: Comment on above: Note: Responsible Ob flour mixer: XNV AUTOFILE (3018) MCH (RBC) [Entitic mass] 27.6 pg (25.2-33.5 ) [facility] Work Phone: Comment on above: Note: Responsible Ob flour mixer: XNV AUTOFILE (3018) MCHC (RBC) [Mass/Vol] 31.5 g/dL (28.4- 34.8 ) [facility] Work Phone: Comment on above: Note: Responsible Ob flour mixer: XNV AUTOFILE (3018) MCV (RBC) [Entitic vol] 87.6 fL (82.6-102.9 ) [facility] Work Phone: Comment on above: Note: Responsible Ob flour mixer: XNV AUT[employer]FILE (3018) Monocytes (Bld) [#/Vol] 0.48 10*3/uL (0.10-1.20 ) [facility] Work Phone: Comment on above: Note: Responsible Ob flour mixer: XNV [employer]OFILE (3018) Monocytes/100 WBC (Bld) 5 % (3-12 ) [facility] Work Phone: Comment on above: Note: Responsible Ob flour mixer: XNV [employer]FILE (3018) Platelet mean volume (Bld) [Entitic vol] 11.6 fL (8.1-13.5 ) [facility] Work Phone: Comment on above: Note: Responsible Ob flour mixer: [employer]NV [employer] (3018) Platelets (Bld) [#/Vol] 246 10*3/uL (138-453 ) [facility] Work Phone: Comment on above: Note: Responsible Ob flour mixer: [employer]NV [employer]FILE (3018) RBC (Bld) [#/Vol] 4.90 10*6/uL (3.95-5.11 ) [facility] Work Phone: Comment on above: Note: Responsible Ob flour mixer: XNV [employer]OFILE (3017) RBC morphology finding Nom (Bld) NOT REPORTED [facility] Work Phone: Segmented neutrophils/100 WBC (Bld) 62 % (36-65 ) [facility] Work Phone: Comment on above: Note: Responsible Ob flour mixer: XNV AUTOFILE (3017) WBC (Bld) [#/Vol] 9.2 10*3/uL (3.5-11.3 ) [facility] Work Phone: Comment on above: Note: Responsible Ob flour mixer: XNV AUTOFILE (301) Lipid Prof, Fastingon 2020 Cholesterol,VLDL NOT REPORTED Normal 06-29 [facility] Comment on above: Performed By: #### L IPRF, CDP, CP, TSHX #### [employer] [facility] [place] [address] Military Logistics Specialist: Chato Aguirre MD Lipid, FastingOrdered By: Zandra Sharpe on 09-23-2020 Cholesterol [Mass/Vol] 186 mg/dL <200 [facility] [employer] Work Phone: Comment on above: Cholesterol Guidelines: <200 Desirable 200-240 Borderline >240 Undesirable Cholesterol in HDL [Mass/Vol] 49 mg/dL >40 [employer] Phone: Comment on above: HDL Guidelines: <40 Undesirable 40-59 Borderline >59 Desirable Cholesterol in LDL [Mass/Vol] 102 mg/dL 0 - 130 mg/dL [employer] Phone: Comment on above: LDL Guidelines: <100 Desirable 100-129 Near to/above Desirable 130-159 Borderline >159 Undesirable Direct (measured) LDL and calculated LDL are not interchangeable tests. Cholesterol in VLDL [Mass/Vol] NOT REPORTED High 1 - 30 mg/dL [facility] Phone: Cholesterol.total/Chol esterol in HDL [Mass ratio] 3.8 {ratio} <5 [facility] Phone: Triglyceride, Fasting 173 mg/dL High <150 [facility] [employer] Work Phone: Comment on above: Triglyceride Guidelines: <150 Desirable 150-199 Borderline 200-499 High >499 Very high Based on AHA Guidelines for fasting triglyceride, February 2012. No Panel InformationOrdered By: Miguel Sharpe on 09-23-2020 Interpretation and review of laboratory results Abnormal [facility] Work Phone: (cont.) See Note [facility] Work Phone: Comment on above: Note: Average GFR fo r 20-29 years old:116 mL/min/1.73sq mChronic Kidney Disease:<60 mL/min/1.73sq mKidney failure:<15 mL/min/1.73sq meGFR calculated using average adult body mass. Additional eGFR calculatoravailable at:http://www.[employer]/multiple_crcl_2011.htmResponsible Observer: CEEV AUTOFILE (6463) Abs. Basophil 0.05 k/uL (0.00-0.20 ) [facility] Work Phone: Comment on above: Note: Responsible Ob flour mixer: XNV AUTOFILE (194) Abs.Imm.Granulocyte <0.03 k/uL (0.00-0. 30 ) [facility] Work Phone: Comment on above: Note: Responsible Ob flour mixer: XNV AUTOFILE (074) Abs.Neutrophil (Seg) 5.79 k/uL (1.50-8 .10 ) [facility] Work Phone: Comment on above: Note: Responsible Ob flour mixer: XNV AUTOFILE (2837) Albumin/Glob Ratio 1.3 (1.0-2.5 ) [facility] Work Phone: Comment on above: Note: Responsible Ob flour mixer: CEEV AUTOFILE (3003) Alkaline Phos 49 U/L (35-104 ) [facility] Work Phone: Comment on above: Note: Responsible Ob flour mixer: CEEV AUTOFILE (3003) Auto Diff Performed NOT REPORTED [facility] Work Phone: BUN/CRE Ratio NOT REPORTED (9-20 ) [facility] Work Phone: Cholesterol,VLDL NOT REPORTED mg/dL (1-30 ) [facility] Work Phone: GFR, Amer >60 mL/min (>60 ) [facility] Work Phone: Comment on above: Note: Responsible Ob flour mixer: CEEV AUTOFILE (3003) GFR,non Amer >60 mL/min (>60 ) [facility] Work Phone: Comment on above: Note: Responsible Ob flour mixer: CEEV AUTOFILE (3003) NRBC Automated 0.0 per_100_WBC (0.0 ) [facility] Work Phone: Comment on above: Note: Responsible Ob flour mixer: XNV AUTOFILE (3018) Platelet Estimate NOT REPORTED [facility] Work Phone: Reported Physicians See Note [facility] Work Phone: Comment on above: Note: Reported Physi cians:Ordering: Cotton, AimeeAttending: Cotton, AimeeReferring: Cotton, Miguel Staging: NOT REPORTED [facility] Work Phone: Thyroid Stim. Horm. 3.38 mIU/L (0.30-5. 00 ) [facility] Work Phone: Comment on above: Note: Responsible Ob flour mixer: CEEV AUTOFILE (3003) WBC Morphology NOT REPORTED [facility] Work Phone: TSH with ReflexOrdered By: Kamryn Sharpe on 09-23-2020 TSH Qn 3.38 m[IU]/L [facility] Work Phone: APTTon 04-08-2020 aPTT Coag (Bld) [Time] 25.2 s Me [place], [place] Comment on above: IV Heparin Therapy Range: 62.0-94.0 Brain Natriuretic Peptideon 04-08-2020 Natriuretic peptide B (Bld) [Mass/Vol] pg/mL <300 pg/mL [place], [place] Comment on above: Pro-BNP results ayse ot be compared to BNP results. Natriuretic peptide B (Bld) [Mass/Vol] Pro-BNP Reference Range: [place], [place] Comment on above: Rule Out: <300 [place] Zone: Age <50 300-450 Age 50-75 300-900 Age >75 300-1800 Usually represents mild to moderate HF but other cardiopulmonary causes cannot be ruled out. Rule In: Age <50 >450 Age 50-75 >900 Age >75 >1800 CBCon 04-08-2020 Erythrocyte distribution width (RBC) [Ratio] 11.9 % 11.8 - 14.4 % [place] Hematocrit (Bld) [Volume fraction] 37.9 % 36.3 - 47.1 % [place] Hemoglobin (Bld) [Mass/Vol] 12.5 g/dL 11.9 - 15.1 g/dL [place] MCH (RBC) [Entitic mass] 27.8 pg 25.2 - 33.5 pg [place] MCHC (RBC) [Mass/Vol] 33.0 g/dL 28.4 - 34.8 g/dL [place] MCV (RBC) [Entitic vol] 84.2 fL 82.6 - 102.9 fL [place] Platelet mean volume (Bld) [Entitic vol] 10.9 fL 8.1 - 13.5 fL [place] Platelets (Bld) [#/Vol] 184 10*3/uL [place] RBC (Bld) [#/Vol] 4.50 10*6/uL 3.95 - 5.1 1 m/uL [place] WBC (Bld) [#/Vol] 7.8 10*3/uL [place] WBC (Bld) [#/Vol] 0.0 10*3/uL 0.0 per 10 0 WBC [place] COVID-19on 04-08-2020 Interpretation and review of laboratory results Abnormal [place] SARS-CoV-2, Rapid DETECTED Abnormal Not Detected [place] Comment on above: Rapid NAAT: The [...] this assay. Fact sheet for Healthcare Providers: https://www.fda.gov/media/206108/download Fact sheet for Patients: https://www.fda.gov/media/133566/download Methodology: Isothermal Nucleic Acid Amplification Results reported to the appropriate Health Department Source .NASOPHARYNGEAL SWAB [place], [place] CT CHEST PULMONARY EMBOLISM W CONTRASTon 04-08-2020 Unremarkable appeara nce of the chest with no evidence of pulmonary embolism and clear lungs. Incidentally noted hepatic fatty infiltration. [place] EXAMINATION: CTA OF THE CHEST 04/08/2020 [...] No significant osseous or soft tissue abnormality. [place], [place] Jean Marie, Mhpn Incoming Radiant Results From [employer]/Pacs - 04/08/2020 4:12 PM EST EXAMINATION: CTA [...] clear lungs. Incidentally noted hepatic fatty infiltration. [place] Comprehensive Metabolic Pane fermin 04-08-2020 Albumin [Mass/Vol] 4.1 g/dL 3.5 - 5.2 g/dL [place] Albumin/Globulin [Mass ratio] 1.4 {ratio} [place] ALP [Catalytic activity/Vol] 62 U/L 35 - 104 U/L [place] ALT [Catalytic activity/Vol] 19 U/L 5 - 33 U/L [place] Anion gap [Moles/Vol] 10 mmol/L 9 - 17 mmol/L [place] AST [Catalytic activity/Vol] 20 U/L <32 [place] Bilirubin Ql (U) 0.48 mg/dL 0.3 - 1.2 mg/dL [place] Bun/Cre Ratio 23 High [place] Calcium [Mass/Vol] 8.9 mg/dL 8.6 - 10. 4 mg/dL [place] Chloride [Moles/Vol] 102 mmol/L 98 - 10 7 mmol/L [place] CO2 [Moles/Vol] 23 mmol/L 20 - 31 mmol/L [place] Creatinine [Mass/Vol] 0.47 mg/dL Low 0.5 - 0.9 mg/dL [place] GFR >60 >60 mL/min [place] GFR Non- >60 >60 mL/min [place] Glucose [Mass/Vol] 88 mg/dL 70 - 99 mg/dL [place] Interpretation and review of laboratory results Abnormal [place] Potassium [Moles/Vol] 3.7 mmol/L 3.7 - 5.3 mmol/L [place] Protein [Mass/Vol] 7.1 g/dL 6.4 - 8.3 g/dL [place] Sodium [Moles/Vol] 135 mmol/L 135 - 144 mmol/L [place] Urea nitrogen [Mass/Vol] 11 mg/dL 6 - 20 mg/dL [place] Metabolic Panelon 04-08-2020 GFR/1.73 sq M predicted among non-blacks MDRD (S/P/Bld) [Vol rate/Area] [place] Comment on above: Stage 1: Some [...] body mass. Additional eGFR calculator available at: http://www.[employer]/multiple_crcl_2012.htm Otheron 04-08-2020 SARS-CoV-2 [place], [place] , Urineon 0 Beta HCG ( test) Ql (U) Negative NEGATIVE [place] Comment on above: Specimens with hCG l evels near the threshold of the test (25 mIU/mL) may give a negative or indeterminate result. In such cases, another test should be performed with a new specimen in 48-72 hours. If early is suspected clinically in this setting, correlation with quantitative serum b-hCG level is suggested. [employer] has confirmed the use of plasma for this test. This has not been cleared or approved by the U.S. Food and Drug Administration. The FDA has determined that such clearance is not necessary. Protime-INRon 04-08-2020 INR Coag (PPP) [Relative time] 1.0 {INR} [place] Comment on above: Non-therapeutic Range: INR = 0.9-1.2 Therapeutic Range: Moderate Anticoagulant Intensity: INR = 2.0-3.0 High Anticoagulant Intensity: INR = 2.5-3.5 PT Coag (PPP) [Time] 13.2 s [place] Troponinon 04-08-2020 Troponin I.cardiac [Mass/Vol] NOT REPORTED [place] Troponin T.cardiac [Mass/Vol] NOT REPORTED <0.03 ng/mL [place] Troponin, High Sensitivity <6 0 - 14 ng/L [place] Comment on above: High Sensitivity Troponin values cannot be compared with other Troponin methodologies. Patients with high levels of Biotin oral intake (i.e >5mg/day) may have falsely decreased Troponin levels. Samples collected within 8 hours of biotin intake may require additional information for diagnosis. CBC Auto Differentialon 0 Basophils (Bld) [#/Vol] 0.05 10*3/uL [facility] Phone: Basophils/100 WBC (Bld) 1 % 0 - 2 % [employer] Phone: Differential Type NOT REPORTED [employer] Phone: Eosinophils (Bld) [#/Vol] 0.15 10*3/uL [employer] Phone: Eosinophils/100 WBC (Bld) 1 % 1 - 4 % [employer] Phone: Erythrocyte distribution width (RBC) [Ratio] 12.1 % 11.8 - 14.4 % [employer] Phone: Hematocrit (Bld) [Volume fraction] 44.5 % 36.3 - 47.1 % [employer] Phone: Hemoglobin (Bld) [Mass/Vol] 14.0 g/dL 11.9 - 15.1 g/dL [employer] Phone: Immature granulocytes (Bld) [#/Vol] 0 % 0 [employer] Phone: Immature granulocytes (Bld) [#/Vol] 10*3/uL [employer] Phone: Interpretation and review of laboratory results Abnormal [employer] Phone: Lymphocytes (Bld) [#/Vol] 2.83 10*3/uL [employer] Phone: Lymphocytes/100 WBC (Bld) 27 % 24 - 43 % [employer] Phone: MCH (RBC) [Entitic mass] 27.6 pg 25.2 - 33.5 pg [employer] Phone: MCHC (RBC) [Mass/Vol] 31.5 g/dL 28.4 - 34.8 g/dL [employer] Phone: MCV (RBC) [Entitic vol] 87.6 fL 82.6 - 102.9 fL [employer] Phone: Monocytes (Bld) [#/Vol] 0.52 10*3/uL [employer] Phone: Monocytes/100 WBC (Bld) 5 % 3 - 12 % [employer] Phone: Platelet mean volume (Bld) [Entitic vol] 12.0 fL 8.1 - 13.5 fL [employer] Work Phone: Platelets (Bld) [#/Vol] NOT REPORTED [employer] Work Phone: Platelets (Bld) [#/Vol] 241 10*3/uL [employer] Work Phone: RBC (Bld) [#/Vol] 5.08 10*6/uL 3.95 - 5.1 1 m/uL [employer] Work Phone: RBC morphology finding Nom (Bld) NOT REPORTED [employer] Work Phone: Segmented neutrophils/100 WBC (Bld) 66 % High 36 - 65 % [employer] Work Phone: Segs Absolute 7.04 [employer] Work Phone: WBC (Bld) [#/Vol] 10.6 10*3/uL [employer] Work Phone: WBC (Bld) [#/Vol] 0.0 10*3/uL 0.0 per 10 0 WBC [employer] Work Phone: WBC Morphology NOT REPORTED [facility] Work Phone: [facility]acon 07-06-2019 Cholesterol [Mass/Vol] 198 mg/dL (<200) [facility] Work Phone: Comment on above: Note: Cholesterol Gu idelines:<200 [id number] Borderline>240 UndesirableResponsible Observer: CCEV AUTOFILE (0811) Comprehensive Metabolic Pane fermin 07-06-2019 Albumin [Mass/Vol] 4.5 g/dL 3.5 - 5.2 g/dL [employer] Work Phone: Albumin/Globulin [Mass ratio] 1.4 {ratio} [employer] Work Phone: ALP [Catalytic activity/Vol] 62 U/L 35 - 104 U/L [employer] Work Phone: ALT [Catalytic activity/Vol] 39 U/L High 5 - 33 U/L [employer] Phone: Anion gap [Moles/Vol] 16 mmol/L 9 - 17 mmol/L [employer] Phone: AST [Catalytic activity/Vol] 32 U/L High <32 [employer] Phone: Bilirubin Ql (U) 0.25 mg/dL Low 0.3 - 1.2 mg/dL [employer] Phone: Bun/Cre Ratio NOT REPORTED [employer] [facility] Work Phone: Calcium [Mass/Vol] 9.8 mg/dL 8.6 - 10. 4 mg/dL [employer] Phone: Chloride [Moles/Vol] 103 mmol/L 98 - 10 7 mmol/L [employer] Phone: CO2 [Moles/Vol] 19 mmol/L Low 20 - 31 mmol/L [employer] Phone: Creatinine [Mass/Vol] 0.51 mg/dL 0.5 - 0.9 mg/dL [employer] Phone: GFR >60 >60 mL/min [employer] Phone: GFR Non- >60 >60 mL/min [employer] Phone: GFR/1.73 sq M predicted among non-blacks MDRD (S/P/Bld) [Vol rate/Area] [employer] Phone: Comment on above: Average GFR for 20-2 9 years old: 116 mL/min/1.73sq m Chronic Kidney Disease: <60 mL/min/1.73sq m Kidney failure: <15 mL/min/1.73sq m eGFR calculated using average adult body mass. Additional eGFR calculator available at: http://www.[employer]/multiple_crcl_2012.htm GFR/1.73 sq M predicted among non-blacks MDRD (S/P/Bld) [Vol rate/Area] NOT REPORTED [employer] Phone: Glucose [Mass/Vol] 89 mg/dL 70 - 99 mg/dL [employer] Phone: Interpretation and review of laboratory results Abnormal [employer] Phone: Potassium [Moles/Vol] 4.6 mmol/L 3.7 - 5.3 mmol/L [employer] Phone: Protein [Mass/Vol] 7.8 g/dL 6.4 - 8.3 g/dL [employer] Phone: Sodium [Moles/Vol] 138 mmol/L 135 - 144 mmol/L [employer] Phone: Urea nitrogen [Mass/Vol] 14 mg/dL 6 - 20 mg/dL [employer] Phone: Hematologyon 07-06-2019 Basophils/100 WBC (Bld) 1 % (0-2) [employer] [facility] Work Phone: Comment on above: Note: Responsible Ob flour mixer: XNV AUTOFILE (3018) Eosinophils (Bld) [#/Vol] 0.15 10*3/uL (0.00-0.44) [facility] Work Phone: Comment on above: Note: Responsible Ob flour mixer: XNV AUTOFILE (3018) Eosinophils/100 WBC (Bld) 1 % (1-4) [facility] Work Phone: Comment on above: Note: Responsible Ob flour mixer: XNV AUTOFILE (3018) Hematocrit (Bld) [Volume fraction] 44.5 % (36.3-47.1) [facility] Work Phone: Comment on above: Note: Responsible Ob flour mixer: XNV AUTOFILE (3018) Hemoglobin (Bld) [Mass/Vol] 14.0 g/dL (11.9-15.1) [facility] Work Phone: Comment on above: Note: Responsible Ob flour mixer: XNV AUTOFILE (3018) Lymphocytes (Bld) [#/Vol] 2.83 10*3/uL (1.10-3.70) [facility] Work Phone: [phone] Comment on above: Note: Responsible Ob flour mixer: XNV AUTOFILE (3018) Lymphocytes/100 WBC (Bld) 27 % (24-43) [facility] Work Phone: [phone] Comment on above: Note: Responsible Ob flour mixer: XNV AUTOFILE (3018) MCH (RBC) [Entitic mass] 27.6 pg (25.2-33.5) [facility] Work Phone: [phone] Comment on above: Note: Responsible Ob flour mixer: XNV AUTOFILE (3018) MCV (RBC) [Entitic vol] 87.6 fL (82.6-102.9 ) [facility] Work Phone: [phone] Comment on above: Note: Responsible Ob flour mixer: XNV AUTOFILE (3018) Monocytes (Bld) [#/Vol] 0.52 10*3/uL (0.10-1.20) [facility] Work Phone: [phone] Comment on above: Note: Responsible Ob flour mixer: XNV AUTOFILE (3018) Monocytes/100 WBC (Bld) 5 % (3-12) [facility] Work Phone: [phone] Comment on above: Note: Responsible Ob flour mixer: XNV AUTOFILE (3018) Platelets (Bld) [#/Vol] NOT REPORTED [facility] Work Phone: [phone] Platelets (Bld) [#/Vol] 241 10*3/uL (138-453) [facility] Work Phone: Comment on above: Note: Responsible Ob flour mixer: XNV AUTOFILE (3018) RBC (Bld) [#/Vol] 5.08 10*6/uL (3.95-5.11) [facility] Work Phone: Comment on above: Note: Responsible Ob flour mixer: XNV AUTOFILE (3018) RBC morphology finding Nom (Bld) NOT REPORTED [facility] Work Phone: WBC (Bld) [#/Vol] 0.0 per_100_WBC (0.0) [facility] Work Phone: Comment on above: Note: Responsible Ob flour mixer: XNV AUTOFILE (0099) WBC (Bld) [#/Vol] 10.6 10*3/uL (3.5-11.3) [facility] Work Phone: Comment on above: Note: Responsible Ob flour mixer: XNV AUTOFILE (6474) Lipid, Fastingon 07-06-2019 Cholesterol [Mass/Vol] 198 mg/dL <200 [facility] Phone: Comment on above: Cholesterol Guidelines: <200 Desirable 200-240 Borderline >240 Undesirable Cholesterol in HDL [Mass/Vol] 53 mg/dL >40 [facility] [employer] Phone: Comment on above: HDL Guidelines: <40 Undesirable 40-59 Borderline >59 Desirable Cholesterol in LDL [Mass/Vol] 118 mg/dL 0 - 130 mg/dL [facility] Phone: Comment on above: LDL Guidelines: <100 Desirable 100-129 Near to/above Desirable 130-159 Borderline >159 Undesirable Direct (measured) LDL and calculated LDL are not interchangeable tests. Cholesterol in VLDL [Mass/Vol] NOT REPORTED 1 - 30 mg/dL [facility] Phone: Cholesterol.total/Chol esterol in HDL [Mass ratio] 3.7 {ratio} <5 [facility] Phone: Triglyceride, Fasting 135 mg/dL <150 [facility] [employer] Phone: Comment on above: Triglyceride Guidelines: <150 Desirable 150-199 Borderline 200-499 High >499 Very high Based on AHA Guidelines for fasting triglyceride, February 2012. Metabolic Panelon 07-06-2019 Albumin [Mass/Vol] 4.5 g/dL (3.5-5.2) [facility] Work Phone: Comment on above: Note: Responsible Ob flour mixer: CCEV AUTOFILE (3002) ALT [Catalytic activity/Vol] 39 U/L High (5-33) [facility] Work Phone: Comment on above: Note: Responsible Ob flour mixer: CCEV AUTOFILE (3002) Anion gap [Moles/Vol] 16 mmol/L (9-17) [facility] Work Phone: Comment on above: Note: Responsible Ob flour mixer: CCEV AUTOFILE (3002) AST [Catalytic activity/Vol] 32 U/L High (<32) [facility] Work Phone: Comment on above: Note: Responsible Ob flour mixer: CCEV AUTOFILE (3002) Bilirubin [Mass/Vol] 0.25 mg/dL Low (0.3-1.2) [facility] Work Phone: Comment on above: Note: Responsible Ob flour mixer: CCEV AUTOFILE (3002) Calcium [Mass/Vol] 9.8 mg/dL (8.6-10.4) [facility] Work Phone: Comment on above: Note: Responsible Ob flour mixer: CCEV AUTOFILE (3002) Chloride [Moles/Vol] 103 mmol/L (98-107) [facility] Work Phone: Comment on above: Note: Responsible Ob flour mixer: CCEV AUTOFILE (3002) CO2 [Moles/Vol] 19 mmol/L Low (20-31) [facility] Work Phone: Comment on above: Note: Responsible Ob flour mixer: CCEV AUTOFILE (3002) Creatinine [Mass/Vol] 0.51 mg/dL (0.50-0.90) [facility] Work Phone: Comment on above: Note: Responsible Ob flour mixer: CCEV AUTOFILE (3002) Glucose [Mass/Vol] 89 mg/dL (70-99) [facility] Work Phone: Comment on above: Note: Responsible Ob flour mixer: CCEV AUTOFILE (3002) Potassium [Moles/Vol] 4.6 mmol/L (3.7-5.3) [facility] Work Phone: Comment on above: Note: Responsible Ob flour mixer: CCEV AUTOFILE (3002) Protein [Mass/Vol] 7.8 g/dL (6.4-8.3) [facility] Work Phone: Comment on above: Note: Responsible Ob flour mixer: CCEV AUTOFILE (3002) Sodium [Moles/Vol] 138 mmol/L (135-144) [facility] Work Phone: Comment on above: Note: Responsible Ob flour mixer: CCEV AUTOFILE (3002) Urea nitrogen [Mass/Vol] 14 mg/dL (6-20) [facility] Work Phone: Comment on above: Note: Responsible Ob flour mixer: CCEV AUTOFILE (3002) Otheron 07-06-2019 (cont.) See Note [facility] Work Phone: Comment on above: Note: Average GFR fo r 20-29 years old:116 mL/min/1.73sq mChronic Kidney Disease:<60 mL/min/1.73sq mKidney failure:<15 mL/min/1.73sq meGFR calculated using average adult body mass. Additional eGFR calculatoravailable at:http://www.[employer]/multiple_crcl_2012.htmResponsible Observer: CCEV AUTOFILE (3002) Abs. Basophil 0.05 k/uL (0.00-0.20) [facility] Work Phone: Comment on above: Note: Responsible Ob flour mixer: XNV AUTOFILE (3018) Abs.Imm.Granulocyte <0.03 k/uL (0.00-0.30) [facility] Work Phone: Comment on above: Note: Responsible Ob flour mixer: XNV AUTOFILE (3018) Abs.Neutrophil (Seg) 7.04 k/uL (1.50-8.10) a [facility] Work Phone: Comment on above: Note: Responsible Ob flour mixer: XNV AUTOFILE (3018) Albumin/Glob Ratio 1.4 (1.0-2.5) [facility] Work Phone: [phone] Comment on above: Note: Responsible Ob flour mixer: CCEV AUTOFILE (3002) Alkaline Phos 62 U/L (35-104) [facility] Work Phone: [phone] Comment on above: Note: Responsible Ob flour mixer: CCEV AUTOFILE (3002) Auto Diff Performed NOT REPORTED [facility]: [phone] BUN/CRE Ratio NOT REPORTED (9-20) [facility] Work Phone: [phone] Cholesterol,HDL 53 mg/dL (>40) [facility] Work Phone: [phone] Comment on above: Note: HDL Guidelines :<40 [id number] Borderline>59 DesirableResponsible Observer: CCEV AUTOFILE (3002) Cholesterol,LDL 118 mg/dL (0-130) [facility] Work Phone: Comment on above: Note: LDL Guidelines :<100 [id number] Near to/above [id number] Borderline>159 UndesirableDirect (measured) LDL and calculated LDL are not interchangeable tests.Responsible Observer: CCEV AUTOFILE (3002) Cholesterol,VLDL NOT REPORTED mg/dL (1-30) [facility] Work Phone: [phone] Cholesterol.total/Chol esterol in HDL [Mass ratio] 3.7 {ratio} (<5) [facility] Work Phone: Comment on above: Note: Responsible Ob flour mixer: CCEV AUTOFILE (3002) Erythrocyte distribution width (RBC) [Ratio] 12.1 % (11.8-14.4) [facility] Work Phone: Comment on above: Note: Responsible Ob flour mixer: XNV AUTOFILE (3018) Free Insulin 34 uIU/mL High (3-19) [facility] Work Phone: Comment on above: Note: Responsible Ob flour mixer: LAB [facility] (0603) GFR, Amer >60 mL/min (>60) [facility] Work Phone: [phone] Comment on above: Note: Responsible Ob flour mixer: CCEV AUTOFILE (3002) GFR,non Amer >60 mL/min (>60) [facility] Work Phone: [phone] Comment on above: Note: Responsible Ob flour mixer: CCEV AUTOFILE (3002) Immature granulocytes (Bld) [#/Vol] 0 % (0) [facility] Work Phone: [phone] Comment on above: Note: Responsible Ob flour mixer: XNV AUTOFILE (3018) MCHC (RBC) [Mass/Vol] 31.5 g/dL (28.4-34.8) [facility] Work Phone: [phone] Comment on above: Note: Responsible Ob flour mixer: XNV AUTOFILE (0289) Performing Lab: see note [facility] Work Phone: [phone] Comment on above: Note: [facility] [address] [facility] [address] Note: [facility] [address] [facility] [address] Platelet mean volume (Bld) [Entitic vol] 12.0 fL (8.1-13.5) [facility] Work Phone: Comment on above: Note: Responsible Ob flour mixer: XNV AUTOFILE (459) Reported Physicians See Note [facility] Work Phone: [phone] Comment on above: Note: Reported Physi cians:Ordering: Allyson Floyd AAttending: No FloydthiaReferring: Allyson Floyd Segmented neutrophils/100 WBC (Bld) 66 % High (36-65) [facility] Work Phone: Comment on above: Note: Responsible Ob flour mixer: XNV AUTOFILE (363) Staging: NOT REPORTED [facility] Work Phone: [phone] Thyroid Stim. Horm. 4.15 mIU/L (0.30-5.00) [facility] Work Phone: Comment on above: Note: Responsible Ob flour mixer: CCEV AUTOFILE (3002) Thyroxine, Free 1.21 ng/dL (0.93-1.70) [facility] Work Phone: [phone] Comment on above: Note: Responsible Ob flour mixer: CCEV AUTOFILE (3002) Total Insulin 46 uIU/mL High (3-19) [facility] Work Phone: Comment on above: Note: (NOTE)INTERPRE TIVE INFORMATION: Insulin, Free and TotalThis test reacts on a nearly equimolar basis with the analogsinsulin aspart, insulin glargine, and insulin lispro. Insulindetemir exhibits approximately 50 percent cross-reactivity. Testreactivity with insulin glulisine is negligible (<3 percent). Toconvert to pmol/L, multiply uIU/mL by 6.0. Reference intervalsestablished for fasting specimens.Performed by [facility],[address] [place] [id number] iop.[employer], [place] Xiong MD, Lab. DirectorResponsible Observer: LAB KIERAN ([id number]) Triglyceride,Fasting 135 mg/dL (<150) [facility] Work Phone: [phone] Comment on above: Note: Triglyceride G uidelines:<150 [id number] [id number] High>499 Very highBased on AHA Guidelines for fasting triglyceride, February 2012.Responsible Observer: CCEV AUTOFILE (3002) Triiodothyronine T3 150 ng/dL (80-200) [facility] Work Phone: Comment on above: Note: Responsible Ob flour mixer: CEEV AUTOFILE (3003) WBC Morphology NOT REPORTED [facility] Work Phone: T3on 07-06-2019 T3, Total 150 ng/dL 80 - 200 ng/dL [employer] Phone: T4, Freeon 07-06-2019 Thyroxine, Free 1.21 ng/dL 0.93 - 1.7 ng/dL [employer] Phone: TSH without Reflexon 020 TSH Qn 4.15 m[IU]/L [employer] Work Phone: US NON OB TRANSVAGINALon Satisfactory IUD position. RECOMMENDATIONS: No follow-up imaging is recommended. Reference: US BPRs based on Radiology 2010 Jan;256(3):943-54; CT/MR BPRs based on J Am Joanne Radiol 2013;10:675-681. [place], [place] EXAMINATION: PELVIC ULTRASOUND 02/02/2019 TECHNIQUE: Transvaginal [...] Free Fluid: No evidence of free fluid. [place], [place] Jean Marie, pn Incoming Radiant Results From [facility] - 02/02/2019 8:44 AM EDT EXAMINATION: PELVIC [...] based on J Am Joanne Radiol 2013;10:675-681. [facility] ([facility] ) ----- ESTEFANIA HERRERA ([id number]) 1995 F Date Time Provider Department 08/21/18 12:00 PM MIGUEL LOVELACE (DIANELYS) WALKBR During your visit today, we recorded the following information about you: Temperature Pulse Respiration Blood pressure 97.6 degrees 99/minute 16/minute 136/81 Weight 109.8 kg Miguel Lovelace APRN.CNP 08/21/2018 12:46 PM Signed Subjective The history is provided by the patient. No biblical languages professor was used. Cough This is a [...] is a safe and effective decongestant 3. [place] Nasal [place] may offer relief of nasal and head [...] help open respiratory and sinus passages. - [place] Nasal [place] may offer relief of nasal and head [...] get worse. Thank you for coming to [facility] today. I appreciate your confidence in choosing the [facility] for your medical care. Miguel Lovelace APRN.[facility] [address] [facility] [phone] Referring Provider: SELF [200] Allergies [...] is a safe and effective decongestant 3. [place] Nasal [place] may offer relief of nasal and head [...] help open respiratory and sinus passages. - [place] Nasal [place] may offer relief of nasal and head [...] get worse. Thank you for coming to [facility] today. I appreciate your confidence in choosing the [facility] for your medical care. Miguel Lovelace APRN.[employer] [facility] [address] [facility] [phone] Prescriptions ordered this encounter Disp Refills Start [...] Status:Closed by MIGUEL LOVELACE CNP on 08/21/18 [facility] PROGRESSon 08-21-2018 Protein mass conc HNO ID: [id number] Author: Miguel Hall) Radu Service: ? Author Type: Nurse Practitioner Type: Progress Notes Filed: 08/21/2018 12:46 PM Note Text: Subjective The history is provided by the patient. No biblical languages professor was used. Cough This is a [...] 3-5 days or get worse Miguel Lovelace APRN.[employer] [facility] CNCOon 12-22-2017 CNCO Letter Text Erica Velazquez MD [facility] [address] [place] [address] Estefania Herrera December 22, 2017 Estefania Herrera [id number] [facility] [address] Dear Ms. Herrera, It was noted that you did not keep your scheduled appointment on 12-22-17. It is important to contact the office in advance if you are unable to keep your appointment so that it is available for other patients. Your medical care is important to us. Please call our office to reschedule an appointment. Sincerely, Erica Velazquez MD [facility] Consult Reporton 01-05-2017 Consult Report Patient: JITENDRA HRERERA Age: 21 years Sex: Female : 1995 Associated Diagnoses: None Author: KAREN ACKERMAN DPM, RES [facility] Podiatry DepartmentReason for Consult: Active Problems [...] discussed with attending physician, Dr. Jaime Ackerman [phone] ically Signed by: KAREN ACKERMAN DPM, RES on 01/04/2017 13:59 EDTElectronically Co-Signed by: Cecelia ACKERMAN DPM, RES 01/04/2017 14:37 EDTElectronically Co-Signed by: Rene REYES DPM 01/05/2017 18:28 EDT Normal [facility] APTTon 01-04-2017 aPTT 29.9 Second(s) Normal [facility] Comment on above: Result Comment: VERI FIED by Discern Expert. Performed By: #### 1 94545, 2565486, 143283, 975182, 205121, 923234 ####[facility] [address] [place] [address] Medical Director: David Doe MD aPTT 25.9 Second(s) Normal 25.0-36.[address] [facility] Comment on above: Performed By: #### 1 94849, 1070633, 112750, 056931, 432447, 593516 ####[facility] [address]zdqk96949 [place] [address] Medical Director: David Doe MD AUTO DIFFon 01-04-2017 Basophils Auto #/vol (Bld) 0.04 x1000 Normal 0.00-0.[address] [facility] Comment on above: Performed By: #### 1 35145, 6082443, 156283, 860444, 330645, 159170 ####[facility] [address] [place] [id number] Medical Director: David Doe MD Basos % 0.5 % Normal [facility] Comment on above: Performed By: #### 1 94727, 8458861, 582542, 519626, 274831, 110779 ####[facility] Ovuponrh75626 [place] [address] Medical Director: David Doe MD Eos Count 0.10 x1000 Normal 0.00-0.[address] [facility] Comment on above: Performed By: #### 1 21499, 2874246, 179336, 196009, 159037, 729869 ####[facility] Qckwitnw31391 [place] [address] Medical Director: David Doe MD Eosinophils/100 leukocytes 1.0 % Normal [facility] Comment on above: Performed By: #### 1 26226, 0176768, 261565, 318403, 943674, 828420 ####[facility] Jexfjtac68699 [place], [place] [id number]) [phone] Director: David Doe MD Lymphocytes 2.84 x1000 Normal 1.20-4.[address] [facility] Comment on above: Performed By: #### 1 35806, 2945189, 569776, 426615, 280560, 142302 ####[facility] Lguardvq47605 [place] [address] Medical Director: David Doe MD Lymphocytes/100 leukocytes 29.4 % Normal [facility] Comment on above: Performed By: #### 1 07373, 3636103, 244069, 607842, 844117, 781641 ####[facility] Schfmhgl36192 [place] [address] Medical Director: David Doe MD Laramie Count 0.68 x1000 Normal 0.10-1.[address] [facility] Comment on above: Performed By: #### 1 94226, 8713094, 344586, 940477, 740983, 550286 ####[facility] Toxgjoos36528 [place] [address] Medical Director: David Doe MD Monocytes/100 leukocytes 7.0 % Normal [facility] Comment on above: Performed By: #### 1 82447, 0991002, 834451, 152309, 117463, 558808 ####[facility] L[address]otdd84838 [place] [address] Medical Director: David Doe MD Neutrophils 5.98 x1000 Normal 1.40-8.[address] [facility] Comment on above: Performed By: #### 1 72963, 2350168, 710173, 858257, 591302, 977674 ####[facility] Ofyguzqj44615 [place] [address] Medical Director: David Doe MD Neutrophils/100 WBC Auto (Bld) 62.0 % Normal [facility] Comment on above: Performed By: #### 1 10014, 0464838, 481164, 558237, 010756, 712500 ####[facility] Yrlfaeqj76954 [place] [address] Medical Director: David Doe MD COMPMETAon 01-04-2017 Globulin 4.0 g/dL Normal [facility] Comment on above: Performed By: #### 1 04425, 0774384, 525648, 555497, 036284, 429467 ####[facility] Zucitsek13399 [place] [address] Medical Director: David Doe MD Osmolality 277 mOsm/kg Normal 275-[address] [facility] Comment on above: Performed By: #### 1 50517, 6758655, 465783, 197887, 647472, 820638 ####[facility] Heuraemo36950 [place], [place] [address]) [phone] Director: David Doe MD eGFR (non-black) mL/min/{1.73_m2} Normal [facility] Comment on above: Result Comment: Afri can Bermudian GFR Calc Performed By: #### 1 90661, 3414911, 639136, 496532, 879150, 660048 ####[facility] O[address]uegwro46878 [place] [address] Medical Director: David Doe MD Result Comment: Non GFR CalcMedical judgement is necessary to interpret GFR. The calculated GFR may not accurately reflect renal status in patients >70 years, women, acutely ill hospitalized patients and patients with acute renal failure or known renal disease.Note:Creatinine clearance (not GFR) should be used for drug dosing. Albumin/Globulin Ratio 0.8 {ratio} Normal [facility] Comment on above: Performed By: #### 1 91480, 1764794, 929642, 492802, 927187, 647694 ####[facility] Rosiqndu31614 [place] [address] Medical Director: David Doe MD BUN/Creatinine Ratio 17.6 mg/mg Normal [facility] Comment on above: Performed By: #### 1 70313, 3485822, 751565, 116322, 411004, 175782 ####[facility] Qaulrdgd33354 [place] [address] Medical Director: David Doe MD Alk Phos 61 unit/L Normal 45-[address] [facility] Comment on above: Performed By: #### 1 60074, 4208177, 947847, 564878, 792335, 033405 ####[facility] [address]ayuibt81023 [place] [address] Medical Director: David Doe MD Bilirubin (total) 0.41 mg/dL Normal 0.20-1.00 [facility] Comment on above: Performed By: #### 1 58622, 0803749, 760513, 137602, 010855, 480643 ####[facility] Kuebiato39097 [place] [address] Medical Director: David Doe MD Protein 7.4 g/dL Normal 6.0-8.[address] [facility] Comment on above: Performed By: #### 1 99333, 3780334, 959188, 589407, 785913, 018634 ####[facility] Mcxjpvng52539 [place] [address] Medical Director: David Doe MD GPT 16 unit/L Normal 13-[address] [facility] Comment on above: Result Comment: Mariposa puncture should occur prior to sulfasalazine and/or sulfapyridine administration due to the potential for falsely depressed results.Baseline assay values before administration of sulfasalazine and sulfapyridine therapy would not be affected. Performed By: #### 1 28505, 0877636, 276809, 400813, 053713, 950273 ####[facility] Dlmxcqyv78698 [place] [address] Medical Director: David Doe MD Creatinine 0.7 mg/dL Normal 0.6-1.[address] [facility] Comment on above: Performed By: #### 1 35652, 8210713, 886116, 798819, 422932, 889771 ####[facility] Yxhhutxs29516 [place] [address] Medical Director: David Doe MD GOT 14 unit/L Low 15-[address] [facility] Comment on above: Result Comment: Mariposa puncture should occur prior to sulfasalazine and/or sulfapyridine administration due to the potential for falsely depressed results.Baseline assay values before administration of sulfasalazine and sulfapyridine therapy would not be affected. Performed By: #### 1 70731, 5044967, 765921, 839896, 331011, 679240 ####[facility] Ffbicqjt93121 [place] [address] Medical Director: David Doe MD Urea nitrogen 13 mg/dL Normal 10-[address] [facility] Comment on above: Performed By: #### 1 23989, 2837286, 516362, 748680, 566087, 805612 ####[facility] Wvenhldq98957 [place] [address] Medical Director: David Doe MD Glucose mass conc 86 mg/dL Normal 72-100 [facility] Comment on above: Result Comment: Mariposa puncture should occur prior to sulfasalazine administration due to the potential for falsely depressed results. Venipuncture should occur prior to sulfapyridine administration due to the potential falsely elevated results.Baseline assay values before administration of sulfasalazine and sulfapyridine therapy would not be affected. Performed By: #### 1 83067, 3139208, 998359, 301981, 681020, 058845 ####[facility] Qbszhhby55794 [place] [address] Medical Director: David Doe MD Albumin 3.4 g/dL Normal 3.4-5.[address] [facility] Comment on above: Performed By: #### 1 73758, 0932542, 841043, 558946, 765067, 748010 ####[facility] Zdcgtycw26037 [place] [address] Medical Director: David Doe MD CO2 19.0 mmol/L Low 21.0-32.[address] [facility] Comment on above: Performed By: #### 1 54896, 9279524, 273563, 766433, 333152, 948005 ####[facility] Jpjsetqj51994 [place] [address] Medical Director: David Doe MD Calcium 9.0 mg/dL Normal 8.5-10.[address] [facility] Comment on above: Performed By: #### 1 04206, 4186294, 395871, 052062, 387945, 690072 ####[facility] Qucvunzz96829 [place] [address] Medical Director: David Doe MD Potassium molar conc 3.7 mmol/L Normal 3.5-5.1 [facility] Comment on above: Performed By: #### 1 14780, 1019805, 919104, 182480, 851618, 778315 ####[facility] Dodhtbqh46588 [place] [address] Medical Director: David Doe MD Sodium 139 mmol/L Normal 135-[address] [facility] Comment on above: Performed By: #### 1 70306, 2432794, 035992, 002123, 512869, 524252 ####[facility] Mwrvpmto25882 [place] [address] Medical Director: David Doe MD Chloride 108 mmol/L Normal 100-[address] [facility] Comment on above: Performed By: #### 1 67583, 4463775, 908543, 056349, 628493, 314644 ####[facility] Mgmlrgaq01723 [place] [address] Medical Director: David Doe MD CT LOWER [...] Damir SMITH MD Out: 01/04/17 12:59:[address] [facility] ED Physician Reporton 2016 ED Physician [...] Plan Diagnosis Crush injury of right foot (RCM15-EK S97.81XA, Working, Medical) Plan Condition: Stable. Disposition: ED Discharge to Home was placed.(01/04/2017 13:39:31 EDT, Constant Order). Prescriptions: Launch prescriptions Pharmacy:Percocet 5/325 ([id number]) oral tablet (Prescribe): 1 tabs, ORAL, [id number], PRN: for pain, 24 tabs, 0 Refill(s)doxycycline hyclate 100 mg oral tablet (Prescribe): 100 mg = 1 tabs, ORAL, BID, for 10 days, 20 tabs, 0 Refill(s). Patient was given the following educational materials: Cryotherapy, Sbrl-zs-Ccny, Compartment Syndrome of the Foot, Compartment Syndrome of the Foot, Cryotherapy, Gabg-tg-Fikq. Follow up with: 837 FAMILY PHYSICIAN Within [...] by: Selene GALVAN MD 01/04/2017 14:[address] [facility] ED Progress Noteon 7 ED Progress [...] medicatedsig other at bedsidepodiatry coming to see [id number] ASSUMED CARE OF PT, REPORT RECEIVED FROM [...] a little dizzy after trying crutches. Normal [facility] HCGon 01-04-2017 HCG, Qual <1.[address] [facility] Comment on above: Result Comment: 0 - 3 Negative3 - 50 Inconclusive>50 Positive Performed By: #### 1 64765, 1609131, 750095, 618260, 147604, 347922 ####[facility] [address]zywalni44123 [place] [address] Medical Director: David Doe MD HEMOon 01-04-2017 DIFF? No Normal [facility] Comment on above: Performed By: #### 1 47934, 8214835, 338349, 040268, 096380, 878633 ####[facility] Kwufwtyz05012 [place] [address] Medical Director: David Doe MD Erythrocyte distribution width Auto Ratio (RBC) 13.3 % Normal 11.5-14.[address] [facility] Comment on above: Performed By: #### 1 02574, 4721882, 621536, 709493, 096320, 158154 ####[facility] Bkogwwuy83734 [place], [place] [address]) [phone] Director: David Doe MD Erythrocytes (RBC) 4.80 x10 Normal 4.20-5.40 [facility] Comment on above: Result Comment: Note : RBC morphology is normal unless otherwise stated. Evaluation performed only if differential is requested. Performed By: #### 1 23980, 6116836, 778272, 257863, 915792, 074922 ####[facility] Msggnvww08995 [place], [place] [address]) [phone] Director: David Doe MD Hematocrit (HCT) 39.0 % Normal 36.0-46.0 [facility] Comment on above: Performed By: #### 1 21723, 8881056, 008089, 706858, 520114, 886733 ####[facility] Aadvgneo92995 [place], [place] [address]) [phone] Director: David Doe MD Hemoglobin mass conc (Bld) 13.1 g/dL Normal 12.0-16.[address] [facility] Comment on above: Performed By: #### 1 76388, 2169730, 250422, 087607, 930967, 168753 ####[facility] Miexvxzs92618 [place], [place] [address]) [phone] Director: David Doe MD MCH 27.3 pg Normal 27.0-34.[address] [facility] Comment on above: Performed By: #### 1 98290, 3962251, 937315, 089849, 010101, 229129 ####[facility] Nimpspkn81663 [place], [place] [address]) [phone] Director: David Doe MD MCHC mass conc (RBC) 33.6 g/dL Normal 32.0-37.0 [facility] Comment on above: Performed By: #### 1 75483, 0815871, 305078, 040066, 508632, 413637 ####[facility] Aqoogalo02383 [place] [address] Medical Director: David Doe MD MCV 81.3 fL Normal 80.0-100.[address] [facility] Comment on above: Performed By: #### 1 23826, 4293347, 121580, 542060, 334681, 344162 ####[facility] Cvpyghui67227 [place] [address] Medical Director: David Doe MD Nucleated RBC% 0 /100WC Normal [facility] Comment on above: Performed By: #### 1 76325, 8977281, 543413, 164223, 328748, 236264 ####[facility] Qqfkxxvd69133 [place] [address] Medical Director: David Doe MD Platelet mean volume (PMV) 9.4 fL Normal 7.4-10.[address] [facility] Comment on above: Performed By: #### 1 52547, 9588140, 317352, 292763, 242519, 106029 ####[facility] Eturxttl59105 [place] [address] Medical Director: David Doe MD Platelets 238 x1000 Normal 150-[address] [facility] Comment on above: Performed By: #### 1 19934, 3456054, 067295, 470159, 659705, 688539 ####[facility] Uhquxchn43531 [place] [address] Medical Director: David Doe MD WBC (Leukocytes) 9.6 10*3/uL Normal [facility] Comment on above: Performed By: #### 1 64206, 9859926, 742911, 236446, 601126, 994287 ####[facility] Tuallvel45591 [place] [address] Medical Director: David Doe MD WBC (Leukocytes) 9.6 x10 Normal 4.5-11.0 [facility] Comment on above: Performed By: #### 1 99607, 0085179, 782451, 885294, 266874, 490288 ####[facility] Gtlkjwaq99187 [place], [place] [address]) [phone] Director: David Doe MD PT INRon 01-04-2017 Protime Median 11.1 Second(s) Normal [facility] Comment on above: Result Comment: VERI FIED by Discern Expert. Performed By: #### 1 37168, 2379677, 453251, 866206, 003586, 931163 ####[facility] Rqrcjxpj51148 [place], [place] [address]) [phone] Director: David Doe MD INR Coag RelTime (PPP) 1.0 {INR} Normal [facility] Comment on above: Result Comment: Norm al reference range for INR on patients not on anticoagulant therapy: 0.9-1.1. General therapeutic range for patients on anticoagulant therapy: 2.0-3.5. Performed By: #### 1 93651, 9474201, 660610, 356385, 248419, 247518 ####[facility] Bnweeosr62750 [place], [place] [address]) [phone] Director: David Doe MD Protime Patient 11.3 Second(s) Normal 9.8-12.7 [facility] Comment on above: Performed By: #### 1 27991, 3254910, 705353, 558565, 941849, 662699 ####[facility] Iafwjhoa34602 [place], [place] [address]) [phone] Director: David Doe MD XR FOOT RIGHT [...] Alberto AGUILAR MD Out: 01/04/17 11:49:[address] [facility] Vital Signs Date Time Vital Sign Value Performing Clinician Facility 07-15-2023 11:50-0500 Body mass index (BMI) [Ratio] 36.65 kg/m2 [facility] Work Phone: [facility] 07-15-2023 11:50-0500 Body weight 106.14 kg [facility] Work Phone: [facility] 12-04-2021 10:03-0400 Body height 173.35 cm [facility] 12-04-2021 10:03-0400 Body mass index (BMI) [Ratio] 35.22 kg/m2 [facility] 12-04-2021 10:03-0400 Body surface area Derived from formula 2.26 m2 [facility] 12-04-2021 10:03-0400 Body weight 105.83 kg [facility] 12-04-2021 10:03-0400 Diastolic blood pressure 68 mm[Hg] [facility] 12-04-2021 10:03-0400 Heart rate 68 /min [facility] 12-04-2021 10:03-0400 Systolic blood pressure 116 mm[Hg] Shona Lucio [facility] 10-15-2020 01:15-0400 Diastolic blood pressure 71 mm[Hg] Donny Andes DO Work Phone: [employer] Work Phone: 10-15-2020 01:15-0400 SaO2% (BldA) [Mass fraction] 94 % Donny Andes DO Work Phone: [employer] Work Phone: 10-15-2020 01:15-0400 Systolic blood pressure 117 mm[Hg] Donny Andes DO Work Phone: [employer] Work Phone: 10-14-2020 23:18-0400 Body temperature 97.59 [degF] Donny Andes DO Work Phone: [employer] Work Phone: 10-14-2020 23:18-0400 Heart rate 98 /min Donny Andes DO Work Phone: [employer] Work Phone: 10-14-2020 23:18-0400 Respiratory rate 18 /min Donny Andes DO Work Phone: [employer] Work Phone: 09-23-2020 08:31-0400 Body height 172.72 cm Miguel Sharpe [employer] Work Phone: [employer] [facility] Work Phone: 09-23-2020 08:31-0400 Body mass index (BMI) [Ratio] 40.9 kg/m2 Miguel Sharpe [employer] Work Phone: [facility] Work Phone: 09-23-2020 08:31-0400 Body surface area Derived from formula 2.32 m2 Miguel Sharpe [employer] Work Phone: [facility] Work Phone: 09-23-2020 08:31-0400 Body temperature 964 [degF] Miguel Sharpe CNP Work Phone: [facility] Work Phone: 09-23-2020 08:31-0400 Body weight 122.02 kg Miguel Sharpe CNP Work Phone: [facility] Work Phone: 09-23-2020 08:31-0400 Diastolic blood pressure 80 mm[Hg] Miguel Sharpe CNP Work Phone: [facility] Work Phone: 09-23-2020 08:31-0400 Heart rate 80 /min Miguel Sharpe CNP Work Phone: [facility] Work Phone: 09-23-2020 08:31-0400 Respiratory rate 18 /min Miguel Sharpe CNP Work Phone: [facility] [facility] Work Phone: 09-23-2020 08:31-0400 SaO2% (BldA) [Mass fraction] 98 % Miguel Sharpe CNP Work Phone: [facility] Work Phone: 09-23-2020 08:31-0400 Systolic blood pressure 126 mm[Hg] Miguel Sharpe CNP Work Phone: [facility] Work Phone: 04-08-2020 16:25-0500 Respiratory Rate 16 /min Miguel Sharpe Tape [employer] [facility] [place], [place] 04-08-2020 16:20-0500 Pulse (Heart Rate) 86 /min [facility] [place] [place] 04-08-2020 16:20-0500 Pulse Oximetry 98 % Miguel Sharpe Tape TV [facility] , [place] 04-08-2020 16:00-0500 BP Diastolic 66 mm[Hg] [facility] , [place] 04-08-2020 16:00-0500 BP Systolic 121 mm[Hg] [facility] , [place] 04-08-2020 13:23-0500 Body Temperature 98.4 [degF] [facility] [place] [place] 03-19-2020 19:09-0400 BMI (Body Mass Index) 37.3 kg/m2 [facility] Work Phone: 03-19-2020 19:09-0400 Body weight 111.13 kg [facility] Work Phone: 03-19-2020 19:09-0400 BSA (Body Surface Area) 2.23 m2 [facility] Work Phone: 03-19-2020 19:09-0400 Height 172.72 cm [facility] Work Phone: 03-05-2020 08:30-0400 BMI (Body Mass Index) 37.3 kg/m2 [facility] Work Phone: 03-05-2020 08:30-0400 Body Temperature 95.4 [degF] [facility] Work Phone: 03-05-2020 08:30-0400 Body weight 111.13 kg [facility] Work Phone: 03-05-2020 08:30-0400 BP Diastolic 80 mm[Hg] [facility] Work Phone: 03-05-2020 08:30-0400 BP Systolic 120 mm[Hg] [facility] Work Phone: 03-05-2020 08:30-0400 BSA (Body Surface Area) 2.23 m2 [facility] Work Phone: 03-05-2020 08:30-0400 Height 172.72 cm [facility] Work Phone: 03-05-2020 08:30-0400 Pulse (Heart Rate) 74 /min [facility] Work Phone: 03-05-2020 08:30-0400 Pulse Oximetry 99 % [facility] Work Phone: 03-05-2020 08:30-0400 Respiratory Rate 18 /min [facility] Work Phone: 03-05-2020 08:30-0400 SaO2% (BldA) [Mass fraction] 99 % [facility] Work Phone: [facility] Work Phone: 12-05-2019 08:37-0400 BMI (Body Mass Index) 35.4 kg/m2 [facility] Work Phone: 12-05-2019 08:37-0400 Body Temperature 98.8 [degF] [facility] Work Phone: 12-05-2019 08:37-0400 Body weight 105.69 kg [facility] Work Phone: 12-05-2019 08:37-0400 BP Diastolic 72 mm[Hg] [facility] Work Phone: 12-05-2019 08:37-0400 BP Systolic 116 mm[Hg] [facility] Work Phone: 12-05-2019 08:37-0400 BSA (Body Surface Area) 2.18 m2 [facility] Work Phone: 12-05-2019 08:37-0400 Flow Rate 0 L/min [facility] Work Phone: 12-05-2019 08:37-0400 Height 172.72 cm [facility] Work Phone: 12-05-2019 08:37-0400 Inhaled Oxygen Concentration 21 % [facility] Work Phone: 12-05-2019 08:37-0400 Pulse (Heart Rate) 81 /min [facility] Work Phone: 12-05-2019 08:37-0400 Pulse Oximetry 98 % [facility] Work Phone: 12-05-2019 08:37-0400 Respiratory Rate 18 /min [facility] Work Phone: 12-05-2019 08:37-0400 SaO2% (BldA) [Mass fraction] 98 % [facility] Work Phone: [facility] Work Phone: 11-06-2019 09:02-0400 BMI (Body Mass Index) 36.2 kg/m2 [facility] Work Phone: 11-06-2019 09:02-0400 Body Temperature 95.8 [degF] [facility] Work Phone: 11-06-2019 09:02-0400 Body weight 107.96 kg [facility] Work Phone: 11-06-2019 09:02-0400 BP Diastolic 80 mm[Hg] [facility] Work Phone: 11-06-2019 09:02-0400 BP Systolic 110 mm[Hg] [facility] Work Phone: 11-06-2019 09:02-0400 BSA (Body Surface Area) 2.2 m2 [facility] Work Phone: 11-06-2019 09:02-0400 Height 172.72 cm [facility] Work Phone: 11-06-2019 09:02-0400 Pulse (Heart Rate) 94 /min [facility] Work Phone: 11-06-2019 09:02-0400 Pulse Oximetry 98 % [facility] Work Phone: 11-06-2019 09:02-0400 Respiratory Rate 18 /min [facility] Work Phone: 11-06-2019 09:02-0400 SaO2% (BldA) [Mass fraction] 98 % [facility] Work Phone: [facility] Work Phone: 10-12-2019 09:53-0400 BMI (Body Mass Index) 38.2 kg/m2 [facility] Work Phone: 10-12-2019 09:53-0400 Body Temperature 98.7 [degF] [facility] Work Phone: 10-12-2019 09:53-0400 Body weight 113.85 kg [facility] Work Phone: 10-12-2019 09:53-0400 BP Diastolic 82 mm[Hg] [facility] Work Phone: 10-12-2019 09:53-0400 BP Systolic 122 mm[Hg] [facility] Work Phone: 10-12-2019 09:53-0400 BSA (Body Surface Area) 2.25 m2 [facility] Work Phone: 10-12-2019 09:53-0400 Flow Rate 0 L/min [facility] Work Phone: 10-12-2019 09:53-0400 Height 172.72 cm [facility] Work Phone: 10-12-2019 09:53-0400 Inhaled Oxygen Concentration 21 % [facility] Work Phone: 10-12-2019 09:53-0400 Pulse (Heart Rate) 97 /min [facility] Work Phone: 10-12-2019 09:53-0400 Pulse Oximetry 98 % [facility] Work Phone: 10-12-2019 09:53-0400 Respiratory Rate 18 /min [facility] Work Phone: 10-12-2019 09:53-0400 SaO2% (BldA) [Mass fraction] 98 % [facility] Work Phone: [facility] Work Phone: 09-14-2019 08:35-0400 BMI (Body Mass Index) 37.7 kg/m2 [facility] Work Phone: 09-14-2019 08:35-0400 Body Temperature 96.6 [degF] [facility] Work Phone: 09-14-2019 08:35-0400 Body weight 112.49 kg [facility] Work Phone: 09-14-2019 08:35-0400 BP Diastolic 80 mm[Hg] [facility] Work Phone: 09-14-2019 08:35-0400 BP Systolic 130 mm[Hg] [facility] Work Phone: 09-14-2019 08:35-0400 BSA (Body Surface Area) 2.24 m2 [facility] Work Phone: 09-14-2019 08:35-0400 Height 172.72 cm [facility] Work Phone: 09-14-2019 08:35-0400 Pulse (Heart Rate) 81 /min [facility] Work Phone: 09-14-2019 08:35-0400 Pulse Oximetry 98 % [facility] Work Phone: 09-14-2019 08:35-0400 Respiratory Rate 18 /min [facility] Work Phone: 09-05-2019 10:26-0400 BMI (Body Mass Index) 37.3 kg/m2 [facility] Work Phone: 09-05-2019 10:26-0400 Body weight 111.13 kg [facility] Work Phone: 09-05-2019 10:26-0400 BSA (Body Surface Area) 2.23 m2 [facility] Work Phone: 09-05-2019 10:26-0400 Height 172.72 cm [facility] Work Phone: 08-17-2019 08:29-0400 BMI (Body Mass Index) 37.3 kg/m2 [facility] Work Phone: 08-17-2019 08:29-0400 Body Temperature 97.9 [degF] [facility] Work Phone: 08-17-2019 08:29-0400 Body weight 111.13 kg [facility] Work Phone: 08-17-2019 08:29-0400 BP Diastolic 80 mm[Hg] [facility] Work Phone: 08-17-2019 08:29-0400 BP Systolic 120 mm[Hg] [facility] Work Phone: 08-17-2019 08:29-0400 BSA (Body Surface Area) 2.23 m2 [facility] Work Phone: 08-17-2019 08:29-0400 Height 172.72 cm [facility] Work Phone: 08-17-2019 08:29-0400 Pulse (Heart Rate) 68 /min [facility] Work Phone: 08-17-2019 08:29-0400 Pulse Oximetry 98 % [facility] Work Phone: 08-17-2019 08:29-0400 Respiratory Rate 18 /min [facility] Work Phone: 07-20-2019 08:36-0500 BMI (Body Mass Index) 39 kg/m2 [facility] Work Phone: 07-20-2019 08:36-0500 Body Temperature 98.4 [degF] [facility] Work Phone: 07-20-2019 08:36-0500 Body weight 116.39 kg [facility] Work Phone: 07-20-2019 08:36-0500 BP Diastolic 80 mm[Hg] [facility] Work Phone: 07-20-2019 08:36-0500 BP Systolic 120 mm[Hg] [facility] Work Phone: 07-20-2019 08:36-0500 BSA (Body Surface Area) 2.27 m2 [facility] Work Phone: 07-20-2019 08:36-0500 Height 172.72 cm [facility] Work Phone: 07-20-2019 08:36-0500 Pulse (Heart Rate) 87 /min [facility] Work Phone: 07-20-2019 08:36-0500 Pulse Oximetry 97 % [facility] Work Phone: 07-20-2019 08:36-0500 Respiratory Rate 18 /min [facility] Work Phone: 07-06-2019 08:43-0500 BMI (Body Mass Index) 39.7 kg/m2 [facility] Work Phone: 07-06-2019 08:43-0500 Body Temperature 97.3 [degF] [facility] Work Phone: 07-06-2019 08:43-0500 Body weight 118.39 kg [facility] Work Phone: 07-06-2019 08:43-0500 BP Diastolic 82 mm[Hg] [facility] Work Phone: 07-06-2019 08:43-0500 BP Systolic 122 mm[Hg] [facility] Work Phone: 07-06-2019 08:43-0500 BSA (Body Surface Area) 2.29 m2 [facility] Work Phone: 07-06-2019 08:43-0500 Height 172.72 cm [facility] Work Phone: 07-06-2019 08:43-0500 Pulse (Heart Rate) 78 /min [facility] Work Phone: 07-06-2019 08:43-0500 Pulse Oximetry 98 % [facility] Work Phone: 07-06-2019 08:43-0500 Respiratory Rate 18 /min [facility] Work Phone: Encounters Encounter Date Encounter [...] sheet Aditya Billy DO Work Phone: [facility] Comment on above: Second trimester pre gnancy Start: 06-11-2023 End: 06-11-2023 ambulatory ADITYA BILLY Not Available Start: 05-12-2023 End: 05-13-2023 ambulatory [facility]EL [facility] Start: 05-07-2023 End: 05-08-2023 ambulatory M[facility]UEL Foy [facility] Start: 05-05-2023 End: 05-06-2023 ambulatory [facility] Start: 04-14-2023 End: 04-14-2023 ambulatory ADITYA BILLY Not Available Start: 03-24-2023 End: 03-27-2023 ambulatory ADITYA ANGELICA BILLY [facility]reza [facility] Start: 01-20-2023 End: 01-20-2023 ambulatory [facility] Start: 01-01-2023 End: 01-02-2023 ambulatory MIGUEL Foy [facility] Start: 01-01-2023 Encounter for gynecological examination (general) (routine) without abnormal findings [facility] Start: 01-01-2023 End: 01-01-2023 Patient encounter [...] patient visit Donny Hatfield DO Work Phone: [facility] ED Comment on above: Nausea vomiting and diarrhea (Primary Dx); Generalized abdominal pain Start: 09-23-2020 End: 09-24-2020 [facility] Start: 09-23-2020 End: 09-23-2020 Subsequent hospital visit by physician Miguel Stewart CNP Work Phone: [facility] Start: 09-23-2020 End: 09-23-2020 General Jammie RODAS Work Phone: [facility] Work Phone: Start: 09-23-2020 End: 09-23-2020 Adult health examination Miguel Sharpe CNP Work Phone: [facility] Work Phone: Start: 09-23-2020 End: 09-23-2020 FQHC visit, estab pt Miguel Sharpe CNP Work Phone: [facility] Work Phone: Start: 04-08-2020 End: 04-08-2020 Emergency department patient visit Miguel Sharpe [facility] ED Comment on above: COVID-19 (Primary Dx ); Fatty liver Start: 03-19-2020 End: 03-19-2020 Telemedicine consultation with patient Miguel Sharpe Work Phone: [facility] Work Phone: Start: 03-05-2020 End: 03-05-2020 Established patient Miguel Sharpe Work Phone: [facility] Work Phone: Start: 12-05-2019 End: 12-05-2019 Established patient Poly Franco Work Phone: [facility] Work Phone: Start: 11-06-2019 End: 11-06-2019 Established patient Poly Franco Work Phone: [facility] Work Phone: Start: 10-12-2019 End: 10-12-2019 Patient encounter procedure Paty Short Work Phone: [facility] Work Phone: Start: 10-12-2019 End: 10-12-2019 Established patient Poly Franco Work Phone: [facility] Work Phone: Start: 09-14-2019 End: 09-14-2019 Established patient Poly Franco Work Phone: [facility] Work Phone: Start: 09-11-2019 End: 09-11-2019 Telemedicine consultation with patient Poly Franco Work Phone: [facility] Work Phone: Start: 09-05-2019 End: 09-05-2019 Telemedicine consultation with patient Poly Franco Work Phone: [facility] Work Phone: Start: 08-17-2019 End: 09-11-2019 Telemedicine consultation with patient Poly Franco Work Phone: [facility] Work Phone: Start: 08-17-2019 End: 08-17-2019 Established patient Miguel Sharpe Work Phone: [facility] Work Phone: Start: 07-20-2019 End: 07-20-2019 Established patient Miguel Sharpe Work Phone: [facility] Work Phone: Start: 07-06-2019 End: 07-06-2019 Subsequent hospital visit by physician Jackson [facility]MAN [facility] Start: 07-06-2019 End: 07-06-2019 Established patient Anh Virk Work Phone: [facility] Work Phone: Start: 07-06-2019 End: 07-06-2019 New patient Allyson Floyd Work Phone: [facility] Work Phone: Start: 02-02-2019 End: 02-04-2019 Subsequent hospital visit by physician [facility] Ultrasound Room [facility] Ultrasound Comment on above: Encounter for intrau terine device placement Start: 08-21-2018 End: 08-23-2018 Patient encounter procedure [facility] Start: 01-04-2017 End: 01-04-2017 Emergency department patient visit [address] [facility] Facility:[id number] Procedures Date Procedure Procedure Detail Performing Clinician Start: 07-15-2023 Urnls dip stick/tabl et rgnt non-auto w/o micrscp Aditya Cervantes DO Work Phone: Start: 12-16-2021 Assay of blood/uric acid Dedrick JAQUEZC Work Phone: Start: 12-16-2021 C-reactive protein Robel KULKARNI-C Work Phone: Start: 12-04-2021 Nerve conduction heaven dies 9-10 studies Shona Lucio Start: 10-02-2021 Microscopic observat ion [Identifier] in Cervix by Cyto stain Miguel Sharpe [employer] Work Phone: Start: 10-15-2020 Urinalysis microscop ic [...] pressure < 80 mm hg Miguel Sharpe [employer] Work Phone: Start: 09-23-2020 Most recent systolic blood pressure <130 mm hg Miguel Sharpe [employer] Work Phone: Start: 09-23-2020 Pt-focused hlth risk assmt score doc stnd instrm Miguel Sharpe CNP Work Phone: Start: 09-23-2020 Antibody hiv-1&hiv-2 single result Miguel Sharpe CNP Work Phone: Start: 09-23-2020 Comprehensive metabo lic panel Miguel Sharpe SAL[employer]OC[employer] - [facility] Work Phone: Start: 04-08-2020 Ct thorax w/contrast material [facility] Work Phone: Start: 04-08-2020 [facility] Start: 04-08-2020 Urine test visual color cmprsn meths [facility] Work Phone: Start: 04-08-2020 Assay of troponin quantitative [facility] Work Phone: Start: 04-08-2020 Blood count complete [...] in Cervix by Cyto stain Miguel Sharpe [employer] Work Phone: NEGATED: Highlighted row has not occurred!Start: 11-06-2019 currently nursing Miguel Sharpe NEGATED: Highlighted row has not occurred!Start: 11-06-2019 currently Miguel Sharpe NEGATED: Highlighted row has not occurred!Start: 07-06-2019 reported medical history Miguel Sharpe Plan of Treatment Date Care Activity Detail Author Start: 10-02-2024 Screening for malign ant neoplasm of cervix Pap smear [facility] Start: 08-19-2023 End: 08-19-2023 Patient encounter procedure 08/19/2023 11:00 AM EDT Routine [facility] [address] [place] [id number] Latasha Carlton PA [address] [place] [address] [facility] Start: 08-19-2023 End: 08-19-2023 Professional / ancillary services management 08/19/2023 10:00 AM EDT Ancillary Procedure [facility] [address] [place] [id number] [facility] Start: 01-20-2023 End: 01-20-2023 Admission to same day surgery center 01/20/2023 Surgery IP Unit Vickie Nichols MD [address] [place] [address] HYSTEROSCOPY - IUD REMOVAL [facility] Comment on above: HYSTEROSCOPY - IUD R EMOVAL Start: 01-20-2023 End: 01-20-2023 Hysteroscopy removal impacted foreign body HYSTEROSCOPY Intrauterine contraceptive device threads lost, initial encounter 01/20/2023 11:10 AM EDT [facility] Start: 01-20-2023 Subsequent hospital visit by physician 01/20/2023 Hospital Encounter IP Unit Vickie Nichols MD [address] [facility] [address] [place] [address] [facility] Start: 12-29-2022 Influenza vaccination Flu vaccine (# 1) [facility] Start: 04-27-2022 End: 04-27-2022 Patient encounter procedure [facility] Start: 01-29-2022 Influenza vaccination [facility] Start: 02-07-2021 Cervical cancer screen Cervical canc er screen [facility] [place], [place] Start: 02-07-2021 Screening for malign ant neoplasm of cervix [facility] Start: 01-29-2021 Influenza vaccination Flu vacc ine (Season Ended) [facility] Work Phone: Start: 09-30-2020 CBC W Auto Different ial panel - Blood [facility] Start: 09-30-2020 Lipid 1996 panel - S stefan or Plasma LIPID PROFILE [facility] Start: 09-23-2020 Psychiatry Health Par [facility] Work Phone: Comment on above: Note: Please make a referral to: Start: 03-26-2020 SARS-CoV-2, KAILA [facility] Work Phone: Start: 03-19-[address] up Testing [facility] Work Phone: Start: 02-06-2020 Medical Establ ished Patient [facility] Work Phone: Start: 01-30-2020 Influenza vaccination Flu vaccine (# 1) [place], [place] Start: 11-09-2019 Medical Establ ished Patient [facility] Work Phone: Start: 10-11-2019 Medical Establ ished Patient [facility] Work Phone: Start: 09-14-2019 Medical Establ ished Patient [facility] Work Phone: Start: 08-17-2019 Medical Establ ished Patient [facility] Work Phone: Start: 07-20-2019 Medical Establ ished Patient [facility] Work Phone: Start: 07-13-2019 Lipid 1996 panel [facility] Work Phone: Start: 02-14-2019 End: 02-14-2019 Office Visit 02/14/2019 Office Visit Obstetrics and Gynecology Pilar Marie APRN - ANNET[facility] [address], [place] [id number] [facility] [employer] Start: 02-07-2019 Chlamydia screen Chlamydia screen [place], [place] Start: 02-07-2019 Screening for Chlamy valentino trachomatis Chlamydia screen [facility] Start: 01-29-2019 Influenza vaccination Flu vaccine (# 1) [place], [place] Start: 10-29-2017 DTaP/Tdap/Td vaccine (2 - Td or Tdap) DTaP/Tdap/Td vaccine (2 - Td or Tdap) [facility] Start: 10-29-2017 DTaP/Tdap/Td vaccine (2 - Td) DTaP/Tdap/Td vaccine (2 - Td) [place], [place] Start: 2014 Hepatitis C screening Hepatitis C sc reen [facility] Start: 2012 COVID-19 Vaccine (1) COVID-19 Vaccin e (1) [facility] Work Phone: Start: 2011 HIV screen HIV screen [place], [place] Start: 2011 HIV screening HIV screen [facility]IG[facility]WON [facility]ERNARD[facility] Start: 2011 HPV vaccine (1 - Fem shiela 3-dose series) HPV vaccine (1 - Female 3-dose series) [place], [place] Start: 2009 Varicella Vaccine (1 of 2 - 13+ 2-dose series) Varicella Vaccine (1 of 2 - 13+ 2-dose series) [place], [place] Start: 2008 COVID-19 Vaccine (1) COVID-19 Vaccin e (1) [facility] [employer] Phone: Start: 2008 Depression Screen Depression Screen [facility] Start: 2007 HPV vaccine (1 - 2-d ose series) HPV vaccine (1 - 2-dose series) [facility] Start: 2007 HPV vaccine (1 - Fem shiela 2-dose series) HPV vaccine (1 - Female 2-dose series) [facility] [employer] Phone: Start: 2001 COVID-19 Vaccine (1) COVID-19 Vaccin e (1) [facility] Start: 1997 Varicella vaccine (1 of 2 - 2-dose childhood series) Varicella vaccine (1 of 2 - 2-dose childhood series) [facility] Start: 1996 COVID-19 Vaccine (#1) COVID-19 Vacci ne (#1) [facility] [employer] Start: 1996 Hepatitis C screening Hepatitis C sc reen [facility] [employer] Phone: End: 12-16-2021 GLENNY Screen with Reflex [facility] Phone: Comment on above: Once for 1 Occurrenc es starting 12/16/2021 until 12/16/2021 End: 10-02-2021 Cytopathology procedure, preparation of smear, genital source PAP SMEAR Lab Routine Women's annual routine gynecological examination 1 Occurrences starting 10/02/2021 until 10/02/20[facility] Comment on above: 1 Occurrences starti ng 10/02/2021 until 10/02/2021 End: 01-01-2023 Cytopathology procedure, preparation of smear, genital source PAP SMEAR Lab Routine Women's annual routine gynecological examination 1 Occurrences starting 01/01/2023 until 01/01/2023 [employer] Phone: Comment on above: 1 Occurrences starti ng 01/01/2023 until 01/01/2023 End: 12-16-2021 HLA-B27 Antigen [employer] Phone: Comment on above: Once for 1 Occurrenc es starting 12/16/2021 until 12/16/2021 End: 07-06-2019 Insulin, free Insulin, free Lab Routine Once for 1 Occurrences starting 07/06/2019 until 07/06/2019 [employer] Phone: Comment on above: Once for 1 Occurrenc es starting 07/06/2019 until 07/06/2019 Insulin, free Insulin, free [place] b Routine 07/06/2019 9:31 AM EST [employer] Phone: End: 12-16-2021 Lyme Ab [facility] Phone: Comment on above: Once for 1 Occurrenc es starting 12/16/2021 until 12/16/2021 Immunizations Immunization Date Immunization Notes Care Provider Em de la cruz 10-30-2007 tetanus toxoid, redu katelyn diphtheria toxoid, and acellular pertussis vaccine, adsorbed [facility] Room [employer] Payers Date Payer Category Payer Medicaid [id number] 2023 Unknown [facility] [facility] [id number] 2023-Present [address] [address] [place] [address] [id number] .[id number] 2023 Unknown [id number] 2022 Unknown [id number] [id number].3 .[id number] 2018 Unknown [id number] 2.16.840.1.784440.3.140.1.729 99.5.10.6.3 2016 Unknown [employer] M [employer] [address] xxxxxxxxxxxx 2016-Present [phone] [address] [place] [address] xxxxxxxxxxxx [id number] .[id number] 1996 Unknown [id number] 2.16.840.1.301294.3.579.2.175 1996 Unknown [id number] 2.16.840.1.504493.3.579.2.173 1996 Unknown [id number] 2.16.840.1.892994.3.579.2.173 1996 Unknown [id number] 2.16.840.1.338673.3.579.2.173 1996 Unknown [id number] 2.16.840.1.554090.3.579.2.173 1996 Unknown [id number] 2.16.840.1.725663.3.579.2.173 1996 Unknown [id number] 2.16.840.1.349879.3.579.2.173 1996 Unknown [id number] 2.16.840.1.574215.3.579.2.173 1996 Unknown [id number] 2.16.840.1.902130.3.579.2.125 9 1996 Unknown [id number] 2.16.840.1.571741.3.579.2.125 9 1996 Unknown [id number] 2.16.840.1.653739.3.579.2.125 9 1996 Unknown [id number] 2.16.840.1.564905.3.579.2.125 9 1996 Unknown [id number] 2.16.840.1.610052.3.579.2.125 9 1996 Unknown [id number] 2.16.840.1.620536.3.579.2.125 9 1996 Unknown [id number] 2.16.840.1.432251.3.579.2.125 9 1996 Unknown [id number] 2.16.840.1.254909.3.579.2.125 9 1996 Unknown [id number] 2.16.840.1.760295.3.579.2.125 9 1996 Unknown [id number] 2.16.840.1.600000.3.579.2.125 9 1996 Unknown [id number] 2.16.840.1.856028.3.579.2.125 9 Unknown [id number] 2.16.840.1.187023.3.441 Social History Date Type Detail Facility Assertion [facility] Work Phone: Assertion Emotional stress (finding) [facility] Work Phone: Tobacco smoking status Unknown if ever smoked [facility] Work Phone: Assertion Sexually active (finding) [facility] Work Phone: Assertion Gender identity finding (finding) [facility] Work Phone: Assertion Finding of sexua l orientation (finding) [facility] Work Phone: Start: 10-13-2013 End: 02-07-2018 Tobacco smoking status NHIS Never smoker [employer] [place], [place] Start: 02-07-2018 End: 01-01-2023 Alcohol intake Current drinker of alcohol (finding) [employer] Phone: Start: 12-12-2015 [facility] [place] Start: 1996 Sex Assigned At Not on file [facility] [place] Start: 10-13-2013 End: 04-08-2020 Tobacco use and exposure Never used ROBBY Vogel Exposure to SARS-CoV-2 (event) Not sure ROBBY Vogel Start: 02-07-2018 Alcohol intake Yes ROBBY Gonzalez Assertion Family illness (situation) [facility] Work Phone: Assertion Single person (finding) [facility] Work Phone: Start: *Tobacco [place] [employer] Start: 04-15-2023 [facility] NEGATED: Highlighted row Assertion Exposure to pollution (event) [facility] Work Phone: NEGATED: Highlighted row Assertion Tobacco user (finding) [facility] Work Phone: NEGATED: Highlighted row Assertion Current drinker of alcohol (finding) [facility] Work Phone: NEGATED: Highlighted row Assertion Finding relating to drug misuse behavior (finding) [facility] Work Phone: Mental Status Date Assessment Result Facility Cognitive function Cognitive fun ctioning was normal Cognitive function finding (finding) [facility] Work Phone: Clinical Notes 11-06-2019 to 07-15-2023 [...] Aditya Cervantes DO documented in this encounter [facility] 09-23-2020 Evaluation note Includes: Assessments for all patient encounters Findings Anxiety disorder NOS BH Telebehavioral H ealth with Jammie RODAS 09/23/2020 Assessment of visit for: screening for human immunodeficiency virus Medical Established Patient with Miguel Sharpe CNP 09/23/2020 Diabetes Risk Test Score was three score 09/23/2020 Medical Established Patient with Miguel Sharpe [facility] 09/23/2020 Morbid obesity Medical Established Patient with Miguel Sharpe [employer] 09/23/2020 Routine adult history and physical (18-64 yrs) without abnormal findings Medical Established Patient with Miguel Sharpe [employer] 09/23/2020 Z68.41 - Body mass index [BMI]40.0-44.9, adult Medical Established Patient with Miguel Sharpe [employer] 09/23/2020 Cough Telemedicine Establi sted Patient with Miguel Sharpe [facility] 03/19/2020 Exposure to a viral disease Telemedicine Establisted Patient with Miguel Sharpe [facility] 03/19/2020 Obesity due to excess calories Telemedic ine Establisted Patient with Miguel Sharpe [facility] 03/19/2020 Z68.37 - Body mass index [BM I] 37.0-37.9, adult Telemedicine Establisted Patient with Miguel Sharpe [facility] 03/19/2020 Obesity due to excess calories Medical E stablished Patient with Miguel Sharpe [facility] 03/05/2020 Z68.37 - Body mass index [BM I] 37.0-37.9, adult Medical Established Patient with Miguel Sharpe [facility] 03/05/2020 Obesity due to excess calories Medical E stablished Patient with Poly Wagonerle [facility] 12/05/2019 R21 - Rash and other nonspecific skin eruption Medical Established Patient with Poly Wagonerle [facility] 12/05/2019 Z68.35 - Body mass index (BM I) 35.0-35.9, adult Medical Established Patient with Poly Wagonerle [facility] 12/05/2019 Obesity due to excess calories Medical E stablished Patient with Poly Salvador [facility] 11/06/2019 Z68.36 - Body mass index (BM I) 36.0-36.9, adult Medical Established Patient with Poly Salvador [facility] 11/06/2019 Obesity due to excess calories Medical E stablished Patient with Poly Salvador [facility] 10/12/2019 Z68.38 - Body mass index (BM I) 38.0-38.9, adult Medical Established Patient with Poly Salvador [facility] 10/12/2019 L25.5 - Unspecified contact dermatitis due to plants, except food Medical Established Patient with Polykamryn Wagonerle [facility] 09/14/2019 Obesity due to excess calories Medical E stablished Patient with Poly Franco [employer] 09/14/2019 Z68.37 - Body mass index (BM I) 37.0-37.9, adult Medical Established Patient with Poly Franco [employer] 09/14/2019 L25.5 - Unspecified contact dermatitis due to plants, except food Telemedicine with Poly Franco [employer] 09/11/2019 Obesity due to excess calories Telemedic ine with Poly Franco [facility] 09/11/2019 Z68.37 - Body mass index (BM I) 37.0-37.9, adult Telemedicine with Poly Franco [employer] 09/11/2019 Dermatitis due to contact wi th poison spencer Telemedicine with Poly Franco [employer] 09/05/2019 Obesity due to excess calories Telemedic ine with Poly Franco [facility] 09/05/2019 Z68.37 - Body mass index (BM I) 37.0-37.9, adult Telemedicine with Poly Franco [employer] 09/05/2019 Obesity due to excess calories Medical E stablished Patient with Miguel Sharpe [facility] 08/17/2019 Z68.37 - Body mass index (BM I) 37.0-37.9, adult Medical Established Patient with Miguel Sharpe [employer] 08/17/2019 Generalized anxiety disorder BH Establis hed Patient with Anh VIDAL 07/06/2019 Anxiety disorder NOS Medical New Patient with Allyson Nye [employer] 07/06/2019 Depression Medical New Patient with Allyson Everett [employer] 07/06/2019 Diabetes Risk Test Score was one score Medical New Patient with Allyson Panther Burn [employer] 07/06/2019 Idiopathic insomnia Medical New Patient with Allyson Panther Burn [employer] 07/06/2019 Obesity due to excess calories Medical N ew Patient with Allyson Everett [employer] 07/06/2019 Z68.39 - Body mass index (BM I) 39.0-39.9 adult Medical New Patient with Allyson Nye [employer] 07/06/2019 [facility] Work Phone: [phone] History general Narrative - Reported Includes: Medical History in patient's chart Description Last Updated Not currently nursing 11/06/2019 Not 11/06/2019 No reported medical history or no signif icant history 07/06/2019 [facility] Work Phone: Evaluation note Includes: Assessments for all patient encounters Findings Encounter Date Assessment of visit for: scr eening for human immunodeficiency virus Medical Established Patient with Miguel Sharpe [facility] 09/23/2020 Diabetes Risk Test Score was three score 09/23/2020 Medical Established Patient with Miguel Sharpe [facility] 09/23/2020 Morbid obesity Medical Established Patient with Miguel Sharpe [facility] 09/23/2020 Routine adult history and ph ysical (18-64 yrs) without abnormal findings Medical Established Patient with Miguel Sharpe [facility] 09/23/2020 Z68.41 - Body mass index [BMI]40.0-44.9, adult Medical Established Patient with Miguel Sharpe [facility] 09/23/2020 Cough Telemedicine Establi sted Patient with Miguel Sharpe [facility] 03/19/2020 Exposure to a viral disease Telemedicine Establisted Patient with Miguel Sharpe [facility] 03/19/2020 Obesity due to excess calories Telemedic ine Establisted Patient with Miguel Sharpe [facility] 03/19/2020 Z68.37 - Body mass index [BM I] 37.0-37.9, adult Telemedicine Establisted Patient with Miguel Sharpe [facility] 03/19/2020 Obesity due to excess calories Medical E stablished Patient with Miguel Sharpe [facility] 03/05/2020 Z68.37 - Body mass index [BM I] 37.0-37.9, adult Medical Established Patient with Miguel Sharpe [facility] 03/05/2020 Obesity due to excess calories Medical E stablished Patient with Poly Salvador [facility] 12/05/2019 R21 - Rash and other nonspec ific skin eruption Medical Established Patient with Poly Salvador [facility] 12/05/2019 Z68.35 - Body mass index (BM I) 35.0-35.9, adult Medical Established Patient with Poly Salvador [facility] 12/05/2019 Obesity due to excess calories Medical E stablished Patient with Poly Salvador [facility] 11/06/2019 Z68.36 - Body mass index (BM I) 36.0-36.9, adult Medical Established Patient with Poly Salvador [employer] 11/06/2019 Obesity due to excess calories Medical E stablished Patient with Poly Salvador [facility] 10/12/2019 Z68.38 - Body mass index (BM I) 38.0-38.9, adult Medical Established Patient with Poly Salvador [employer] 10/12/2019 L25.5 - Unspecified contact dermatitis due to plants, except food Medical Established Patient with Poly Franco [employer] 09/14/2019 Obesity due to excess calories Medical E stablished Patient with Poly Franco [employer] 09/14/2019 Z68.37 - Body mass index (BM I) 37.0-37.9, adult Medical Established Patient with Poly Franco [employer] 09/14/2019 L25.5 - Unspecified contact dermatitis due to plants, except food Telemedicine with Poly Franco [facility] 09/11/2019 Obesity due to excess calories Telemedicine with Poly Franco [facility] 09/11/2019 Z68.37 - Body mass index (BM I) 37.0-37.9, adult Telemedicine with Poly Franco [facility] 09/11/2019 Dermatitis due to contact wi th poison spencer Telemedicine with Poly Franco [facility] 09/05/2019 Obesity due to excess calories Telemedicine with Poly Franco [facility] 09/05/2019 Z68.37 - Body mass index (BM I) 37.0-37.9, adult Telemedicine with Poly Franco [facility] 09/05/2019 Obesity due to excess calories Medical E stablished Patient with Miguel Sharpe [facility] 08/17/2019 Z68.37 - Body mass index (BM I) 37.0-37.9, adult Medical Established Patient with Miguel Sharpe [facility] 08/17/2019 Generalized anxiety disorder BH Establis hed Patient with Anh VIDAL 07/06/2019 Anxiety disorder NOS Medical New Patient with Allyson Everett [employer] 07/06/2019 Depression Medical New Patient with Allyson Panther Burn [employer] 07/06/2019 Diabetes Risk Test Score was one score M edical New Patient with Allyson Panther Burn [employer] 07/06/2019 Idiopathic insomnia Medical New Patient with Allyson Panther Burn [employer]INE 07/06/2019 Obesity due to excess calories Medical N ew Patient with Allyson Everett [employer] 07/06/2019 Z68.39 - Body mass index (BM I) 39.0-39.9 adult Medical New Patient with Allyson Panther Burn [employer]INE 07/06/2019 [facility] Work Phone: Evaluation note* Diagnosis Nausea vomiting and diarrhea- Primary Nausea with vomiting Generalized abdominal pain Abdominal pain, generalized documented in this encounter [employer] Phone: evaluation note* Diagnosis Women's annual routine gynecological examination [facility] Phone: [facility]* Diagnosis Women's annual routine gynecological examination Intrauterine contraceptive device threads lost, initial encounter documented [facility] this [facility] Diagnosis Second trimester state, incidental documented in this encounter [facility] Narrative History of Present Illness not supported for this document type No History of [facility] Work Phone: Hospital Discharge instructions* Attachments The following attachments cannot be sent through Care Everywhere. * Abdominal Pain (Jamaican) * Nausea and Vomiting (Jamaican) * Diarrhea (Jamaican) [facility] Phone: Instructions Instructions not supported for this document type No Instructions [facility] Work Phone: Patient problem outcome Narrative Includes: Evaluations & Outcomes for active Goals No Outcomes [facility] Work Phone: Reason for referral (narrative)No Reason for Referral [facility] Work Phone: Review of systems Narrative - Reported Review of Systems not supported for this document type No Review of Systems [facility] [employer] Phone: Summary Purpose Family History No Family History Records Found Description Last Updated Maternal history of rheumatoid arthritis 07/06/2019 Maternal history of rheumatologic disord er Fibromyalgia 07/06/2019 Maternal history of systemic lupus eryth ematosus 07/06/2019 Paternal history of type 1 diabetes marino itus 07/06/2019 Advance Directives No Advanced Directives Records FoundDocuments on File Type Date Recorded 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 Advance Directives and Living Will Power of Tie Maker Documents on File Type Date Recorded 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 ACP-Advance Directive ACP-Power of Tie Maker Documents on File Type Date Recorded 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 Advance Directives and Living Will Power of Tie Maker Reason for Referral No Reason for Referral [...] score Medical New Patient with Allyson Floyd [employer] 07/06/2019 Idiopathic insomnia Medical New Patient with Allyson Floyd [employer] 07/06/2019 Obesity due to excess calories Medical N ew Patient with Allyson Floyd [employer] 07/06/2019 Z68.39 - Body mass index (BM I) 39.0-39.9 adult Medical New Patient with Allyson Floyd [employer] 07/06/2019 Findings Encounter Date Obesity due to excess calories Medical E stablished Patient with Poly Wagonerle [facility] 10/12/2019 Z68.38 - Body mass index (BM I) 38.0-38.9, adult Medical Established Patient with Poly Franco [facility] 10/12/2019 L25.5 - Unspecified contact dermatitis due to plants, except food Medical Established Patient with Poly Franco [facility] 09/14/2019 Obesity due to excess calories Medical E stablished Patient with Poly Wagonerle [facility] 09/14/2019 Z68.37 - Body mass index (BM I) 37.0-37.9, adult Medical Established Patient with Poly Franco [facility] 09/14/2019 L25.5 - Unspecified contact dermatitis due to plants, except food Telemedicine with Poly Wagonerle [facility] 09/11/2019 Obesity due to excess calories Telemedicine with Poly Wagonerle [facility] 09/11/2019 Z68.37 - Body mass index (BM I) 37.0-37.9, adult Telemedicine with Poly Wagonerle [facility] 09/11/2019 Dermatitis due to contact wi th poison spencer Telemedicine with Poly Wagonerle [facility] 09/05/2019 Obesity due to excess calories Telemedicine with Poly Wagonerle [facility] 09/05/2019 Z68.37 - Body mass index (BM I) 37.0-37.9, adult Telemedicine with Poly Wagonerle [facility] 09/05/2019 Obesity due to excess calories Medical E stablished Patient with Miguelcristal Sharpe [employer] 08/17/2019 Z68.37 - Body mass index (BM I) 37.0-37.9, adult Medical Established Patient with Miguel Leydi [employer] 08/17/2019 Generalized anxiety disorder BH Establis hed Patient with Anhbrad Virk [employer]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 Anxiety disorder NOS Medical New Patient with Allyson Everett [employer] 07/06/2019 Depression Medical New Patient with Allyson Everett [employer] 07/06/2019 Diabetes Risk Test Score was one score Medical New Patient with Allyson Panther Burn [employer]ACHINE 07/06/2019 Idiopathic insomnia Medical New Patient with Allyson Panther Burn [employer]ACHINE 07/06/2019 Obesity due to excess calories Medical N ew Patient with Allyson Everett [employer]ACHINE 07/06/2019 Z68.39 - Body mass index (BM I) 39.0-39.9 adult Medical New Patient with Allyson Panther Burn [employer]INE 07/06/2019 Findings Encounter Date Obesity due to excess calories Medical E stablished Patient with Miguel Leydi [employer] 08/17/2019 Z68.37 - Body mass index (BM I) 37.0-37.9, adult Medical Established Patient with Miguel Sharpe [employer] 08/17/2019 Generalized anxiety disorder BH Establis hed 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 Anxiety disorder NOS Medical New Patient with Allyson Panther Burn [employer]WORK[employer] MACHINE 07/06/2019 Depression Medical New Patient with Allyson Everett [employer]WORK[employer]ACHINE 07/06/2019 Diabetes Risk Test Score was one score Medical New Patient with Allyson Panther Burn [employer]WORKER MACHINE 07/06/2019 Idiopathic insomnia Medical New Patient with Allyson Panther Burn [employer]WORKER MACHINE 07/06/2019 Obesity due to excess calories Medical N ew Patient with Allyson Everett [employer]WORK[employer]ACHINE 07/06/2019 Z68.39 - Body mass index (BM I) 39.0-39.9 adult Medical New Patient with Allyson Everett [employer]ACHINE 07/06/2019 Findings Encounter Date Dermatitis due to contact wi th poison spencer Telemedicine with Poly Wagonerle [employer]ACHINE 09/05/2019 Obesity due to excess calories Telemedicine with Poly Salvador [employer] 09/05/2019 Z68.37 - Body mass index (BM I) 37.0-37.9, adult Telemedicine with Poly Salvador [employer] 09/05/2019 Obesity due to excess calories Medical E stablished Patient with Miguel Leydi [employer] 08/17/2019 Z68.37 - Body mass index (BM I) 37.0-37.9, adult Medical Established Patient with Miguel Sharpe [employer] 08/17/2019 Generalized anxiety disorder BH Establis hed Patient with Anh Moose RODAS-S 07/06/2019 Anxiety disorder NOS Medical New Patient with Allyson Nye [employer]WORK[employer]ACHINE 07/06/2019 Depression Medical New Patient with Allyson Everett [employer]WORK[employer]ACHINE 07/06/2019 Diabetes Risk Test Score was one score Medical New Patient with Allyson Everett [employer]WORK[employer]ACHINE 07/06/2019 Idiopathic insomnia Medical New Patient with Allyson Panther Burn [employer]ARMWORKER 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 07/06/2019 Obesity due to excess calories Medical N ew Patient with Allyson Everett [employer]WORKER [employer]ACHINE 07/06/2019 Z68.39 - Body mass index (BM I) 39.0-39.9 adult Medical New Patient with Allyson Floyd [employer]WORK[employer]ACHINE 07/06/2019 Findings Encounter Date L25.5 - Unspecified contact dermatitis due to plants, except food [facility] Obesity due to excess calories [facility]2019 Z68.37 - Body mass index (BM I) 37.0-37.9, adult [facility]medicine with [facility] 09/11/2019 Dermatitis due to contact wi th poison spencer Telemedicine with [facility] 09/05/2019 Obesity due to excess calories Telemedicine with [facility] 09/05/2019 Z68.37 - Body mass index (BM I) 37.0-37.9, adult [facility]/2019 Obesity due to excess calories Medical E stablished Patient with Miguel Sharpe [facility] 08/17/2019 Z68.37 - Body mass index (BM I) 37.0-37.9, adult Medical Established Patient with Miguel Sharpe [employer] 08/17/2019 Generalized anxiety disorder BH Establis hed 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 Anxiety disorder NOS Medical New Patient with Allyson Everett [employer]WORK[employer]ACHINE 07/06/2019 Depression Medical New Patient with Allyson Everett [employer]WORK[employer]ACHINE 07/06/2019 Diabetes Risk Test Score was one score Medical New Patient with Allyson Everett [employer]WORK[employer] MACHINE 07/06/2019 Idiopathic insomnia Medical New Patient with Allyson Panther 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 [employer]ARMWORKER 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 07/06/2019 Obesity due to excess calories Medical N ew Patient with Allyson Floyd [employer]ARMWORKER MACHINE 07/06/2019 Z68.39 - Body mass index (BM I) 39.0-39.9 adult Medical New Patient with Allyson Floyd [employer]WORK[employer] MACHINE 07/06/2019 Findings Encounter Date L25.5 - Unspecified contact dermatitis due to plants, except food Medical Established Patient with Poly Franco [employer]ACHINE 09/14/2019 Obesity due to excess calories Medical E stablished Patient with Poly Franco [facility] 09/14/2019 Z68.37 - Body mass index (BM I) 37.0-37.9, adult Medical Established Patient with Poly Franco [facility] 09/14/2019 L25.5 - Unspecified contact dermatitis due to plants, except food Telemedicine with Poly Franco [facility] 09/11/2019 Obesity due to excess calories [facility] Z68.37 - Body mass index (BM I) 37.0-37.9, adult Telemedicine with Poly Franco [facility] 09/11/2019 Dermatitis due to contact wi th poison spencer Telemedicine with Poly Franco [facility] 09/05/2019 Obesity due to excess calories Telemedicine with Poly Franco [facility] 09/05/2019 Z68.37 - Body mass index (BM I) 37.0-37.9, adult Telemedicine with Poly Franco [facility] 09/05/2019 Obesity due to excess calories Medical E stablished Patient with Miguel Sharpe [facility] 08/17/2019 Z68.37 - Body mass index (BM I) 37.0-37.9, adult Medical Established Patient with Miguel Sharpe [facility] 08/17/2019 Generalized anxiety disorder BH Establis hed Patient with Anh VIDAL 07/06/2019 Anxiety disorder NOS Medical New Patient with Allyson Floyd [employer] 07/06/2019 Depression Medical New Patient with Allyson Everett [employer] 07/06/2019 Diabetes Risk Test Score was one score Medical New Patient with Allyson Panther Burn [employer] 07/06/2019 Idiopathic insomnia Medical New Patient with Allyson Panther Burn [employer] 07/06/2019 Obesity due to excess calories Medical N ew Patient with Allyson Everett [employer] 07/06/2019 Z68.39 - Body mass index (BM I) 39.0-39.9 adult Medical New Patient with Allyson Panther Burn [facility] 07/06/2019 Findings Encounter Date Obesity due to excess calories Medical E stablished Patient with Poly Franco [facility] 11/06/2019 Z68.36 - Body mass index (BM I) 36.0-36.9, adult Medical Established Patient with Poly Franco [facility] 11/06/2019 Obesity due to excess calories Medical E stablished Patient with Poly Franco [facility] 10/12/2019 Z68.38 - Body mass index (BM I) 38.0-38.9, adult Medical Established Patient with Poly Franco [facility] 10/12/2019 L25.5 - Unspecified contact dermatitis due to plants, except food Medical Established Patient with Poly Franco [facility] 09/14/2019 Obesity due to excess calories [facility] Z68.37 - Body mass index (BM I) 37.0-37.9, adult [facility] L25.5 - Unspecified contact dermatitis due to plants, except food Telemedicine with Poly Franco [facility] 09/11/2019 Obesity due to excess calories [facility]2019 Z68.37 - Body mass index (BM I) 37.0-37.9, adult Telemedicine with Poly [facility] 09/11/2019 Dermatitis due to contact wi th poison spencer [facility] Obesity due to excess calories Telemedicine with Poly [facility] 09/05/2019 Z68.37 - Body mass index (BM I) 37.0-37.9, adult Telemedicine with Poly Franco [facility] 09/05/2019 Obesity due to excess calories Medical E stablished Patient with Miguel Sharpe [facility] 08/17/2019 Z68.37 - Body mass index (BM I) 37.0-37.9, adult Medical Established Patient with Miguel Leydi [facility] 08/17/2019 Generalized anxiety disorder BH Establis hed Patient with Anh VIADL 07/06/2019 Anxiety disorder NOS Medical New Patient with Allyson Floyd [employer] 07/06/2019 Depression Medical New Patient with Allyson Floyd [employer] 07/06/2019 Diabetes Risk Test Score was one score Medical New Patient with Allyson Panther Burn [employer] 07/06/2019 Idiopathic insomnia Medical New Patient with Allyson Floyd [employer] 07/06/2019 Obesity due to excess calories Medical N ew Patient with Allyson Floyd [employer] 07/06/2019 Z68.39 - Body mass index (BM I) 39.0-39.9 adult Medical New Patient with Allyson Floyd [employer] 07/06/2019 Findings Encounter Date Obesity due to excess calories Medical E stablished Patient with Poly Franco [employer] 12/05/2019 R21 - Rash and other nonspec ific skin eruption Medical Established Patient with Polykamryn Wagonerle [employer] 12/05/2019 Z68.35 - Body mass index (BM I) 35.0-35.9, adult Medical Established Patient with Poly Wagonerle [employer] 12/05/2019 Obesity due to excess calories Medical E stablished Patient with Poly Wagonerle [employer] 11/06/2019 Z68.36 - Body mass index (BM I) 36.0-36.9, adult Medical Established Patient with Poly Wagonerle [employer] 11/06/2019 Obesity due to excess calories Medical E stablished Patient with Poly Wagonerle [facility] 10/12/2019 Z68.38 - Body mass index (BM I) 38.0-38.9, adult Medical Established Patient with Polykamryn Wagonerle [facility] 10/12/2019 L25.5 - Unspecified contact dermatitis due to plants, except food Medical Established Patient with Poly Wagonerle [facility] 09/14/2019 Obesity due to excess calories Medical E stablished Patient with Polykamryn Wagonerle [facility] 09/14/2019 Z68.37 - Body mass index (BM I) 37.0-37.9, adult Medical Established Patient with Poly Wagonerle [facility] 09/14/2019 L25.5 - Unspecified contact dermatitis due to plants, except food Telemedicine with Polykamryn Wagonerle [facility] 09/11/2019 Obesity due to excess calories Telemedicine with Poly Salvador [facility] 09/11/2019 Z68.37 - Body mass index (BM I) 37.0-37.9, adult Telemedicine with Polykamryn Wagonerle [facility] 09/11/2019 Dermatitis due to contact wi th poison spencer Telemedicine with Poly Wagonerle [facility] 09/05/2019 Obesity due to excess calories Telemedicine with Poly Wagonerle [facility] 09/05/2019 Z68.37 - Body mass index (BM I) 37.0-37.9, adult Telemedicine with Polykamryn Wagonerle [employer] 09/05/2019 Obesity due to excess calories Medical E stablished Patient with Miguel Sharpe [employer] 08/17/2019 Z68.37 - Body mass index (BM I) 37.0-37.9, adult Medical Established Patient with Miguel Sharpe [employer] 08/17/2019 Generalized anxiety disorder BH Establis hed Patient with Anh VIDAL 07/06/2019 Anxiety disorder NOS Medical New Patient with Allyson Floyd [employer] 07/06/2019 Depression Medical New Patient with Allyson Floyd [employer] 07/06/2019 Diabetes Risk Test Score was one score Medical New Patient with Allyson Floyd [employer] 07/06/2019 Idiopathic insomnia Medical New Patient with Allyson Floyd [employer] 07/06/2019 Obesity due to excess calories Medical N ew Patient with Allyson Nye [employer] 07/06/2019 Z68.39 - Body mass index (BM I) 39.0-39.9 adult Medical New Patient with Allyson Floyd [employer] 07/06/2019 Findings Encounter Date Obesity due to excess calories Medical E stablished Patient with Miguel Sharpe [employer] 03/05/2020 Z68.37 - Body mass index [BM I] 37.0-37.9, adult Medical Established Patient with Miguel Sharpe [employer] 03/05/2020 Obesity due to excess calories Medical E stablished Patient with Poly Wagonerle [employer] 12/05/2019 R21 - [facility] Established Patient with Polykamryn Wagonerle [employer] 12/05/2019 Z68.35 - Body mass index (BM I) 35.0-35.9, adult Medical Established Patient with Polykamryn Wagonerle [employer] 12/05/2019 Obesity due to excess calories Medical E stablished Patient with Poly Salvador [employer] 11/06/2019 Z68.36 - Body mass index (BM I) 36.0-36.9, adult Medical Established Patient with Poly Salvador [employer] 11/06/2019 Obesity due to excess calories Medical E stablished Patient with Poly Salvador [employer] 10/12/2019 Z68.38 - Body mass index (BM I) 38.0-38.9, adult Medical Established Patient with Poly Salvador [employer] 10/12/2019 L25.5 - Unspecified contact dermatitis due to plants, except food Medical Established Patient with Poly Salvador [employer] 09/14/2019 Obesity due to excess calories Medical E stablished Patient with Poly Franco [facility] 09/14/2019 Z68.37 - Body mass index (BM I) 37.0-37.9, adult Medical Established Patient with Poly Franco [facility] 09/14/2019 L25.5 - Unspecified contact dermatitis due to plants, except food Telemedicine with Poly Franco [facility] 09/11/2019 Obesity due to excess calories Telemedicine with Poly Franco [facility] 09/11/2019 Z68.37 - Body mass index (BM I) 37.0-37.9, [facility] Dermatitis due to contact wi th poison spencer Telemedicine with Poly Franco [facility] 09/05/2019 Obesity due to excess calories Telemedicine with Poly Franco [facility] 09/05/2019 Z68.37 - Body mass index (BM I) 37.0-37.9, adult Telemedicine with Poly Franco [facility] 09/05/2019 Obesity due to excess calories Medical E stablished Patient with Miguel Sharpe [facility] 08/17/2019 Z68.37 - Body mass index (BM I) 37.0-37.9, adult Medical Established Patient with Miguel Sharpe [facility] 08/17/2019 Generalized anxiety disorder BH Establis hed Patient with Anh VIDAL 07/06/2019 Anxiety disorder NOS Medical New Patient with Allyson Nye [facility] 07/06/2019 Depression Medical New Patient with Allyson Nye [facility] 07/06/2019 Diabetes Risk Test Score was one score Medical New Patient with Allyson Nye [facility] 07/06/2019 Idiopathic insomnia Medical New Patient with Allyson Everett [facility] 07/06/2019 Obesity due to excess calories Medical N ew Patient with Allyson Everett [facility] 07/06/2019 Z68.39 - Body mass index (BM I) 39.0-39.9 adult Medical New Patient with Allyson Floyd [facility] 07/06/2019 Findings Encounter Date Cough Telemedicine Establi sted Patient with Miguel Sharpe [facility] 03/19/2020 Exposure to a viral disease Telemedicine Establisted Patient with Miguel Leydi [facility] 03/19/2020 Obesity due to excess calories Telemedic ine Establisted Patient with Miguel Leydi [facility] 03/19/2020 Z68.37 - Body mass index [BM I] 37.0-37.9, adult Telemedicine Establisted Patient with Miguel Sharpe [facility] 03/19/2020 Obesity due to excess calories Medical E stablished Patient with Miguel Sharpe [facility] 03/05/2020 Z68.37 - Body mass index [BM I] 37.0-37.9, adult Medical Established Patient with Miguel Sharpe [facility] 03/05/2020 Obesity due to excess calories Medical E stablished Patient with Poly Franco [facility] 12/05/2019 R21 - Rash and other nonspec ific skin eruption Medical Established Patient with Poly Wagonerle [facility] 12/05/2019 Z68.35 - Body mass index (BM I) 35.0-35.9, adult Medical Established Patient with Poly Wagonerle [facility] 12/05/2019 Obesity due to excess calories Medical E stablished Patient with Poly Wagonerle [facility] 11/06/2019 Z68.36 - Body mass index (BM I) 36.0-36.9, adult Medical Established Patient with Poly Franco [facility] 11/06/2019 Obesity due to excess calories Medical E stablished Patient with Poly Wagonerle [facility] 10/12/2019 Z68.38 - Body mass index (BM I) 38.0-38.9, adult Medical Established Patient with Poly Wagonerle [facility] 10/12/2019 L25.5 - Unspecified contact dermatitis due to plants, except food Medical Established Patient with Poly Wagonerle [facility] 09/14/2019 Obesity due to excess calories Medical E stablished Patient with Poly Wagonerle [facility] 09/14/2019 Z68.37 - Body mass index (BM I) 37.0-37.9, adult Medical Established Patient with Poly Franco [facility] 09/14/2019 L25.5 - Unspecified contact dermatitis due to plants, except food Telemedicine with Poly Wagonerle [facility] 09/11/2019 Obesity due to excess calories Telemedicine with Poly Wagonerle [facility] 09/11/2019 Z68.37 - Body mass index (BM I) 37.0-37.9, adult Telemedicine with Poly Wagonerle [facility] 09/11/2019 Dermatitis due to contact wi th poison spencer Telemedicine with Poly Wagonerle [facility] 09/05/2019 Obesity due to excess calories Telemedicine with Poly Wagonerle [facility] 09/05/2019 Z68.37 - Body mass index (BM I) 37.0-37.9, adult Telemedicine with Poly Wagonerle [facility] 09/05/2019 Obesity due to excess calories Medical E stablished Patient with Miguel Sharpe [employer] 08/17/2019 Z68.37 - Body mass index (BM I) 37.0-37.9, adult Medical Established Patient with Miguel Sharpe [employer] 08/17/2019 Generalized anxiety disorder BH Establis hed Patient with Anh VIDAL 07/06/2019 Anxiety disorder NOS Medical New Patient with Allyson Floyd [employer] 07/06/2019 Depression Medical New Patient with Allyson Floyd [employer] 07/06/2019 Diabetes Risk Test Score was one score Medical New Patient with lAlyson Floyd [employer] 07/06/2019 Idiopathic insomnia Medical New Patient with Allyson Floyd [employer] 07/06/2019 Obesity due to excess calories Medical N ew Patient with Allyson Nye [employer] 07/06/2019 Z68.39 - Body mass index (BM I) 39.0-39.9 adult Medical New Patient with Allyson Floyd [employer] 07/06/2019 Diagnosis COVID-19 Fatty liver Other chronic [...] Everywhere. * Coronavirus Disease (COVID-19): General Info (Jamaican) documented in this encounter Additional Source Comments INFORMATION SOURCE (unrecogn ized section and content) DATE CREATED AUTHOR 11/24/2017 [facility] DATE CREATED AUTHOR AUTHOR'S ORGANIZ ATION 08/26/2018 [facility] DATE CREATED AUTHOR AUTHOR'S ORGANIZ ATION 09/24/2020 [facility] DATE CREATED AUTHOR AUTHOR'S ORGANIZ ATION 05/14/2023 [facility] DATE CREATED AUTHOR AUTHOR'S ORGANIZ ATION 12/19/2023 [facility] EPIC Evaluations & Outcomes [...] TRANSVAGINAL, NON OB Dana Akins MD [address] [place] [address] [facility] [address] [place] [address] Reason Comments Emesis multiple episodes si nce [...] Care Teams (unrecognized sec tion and content) Electrician Supervisor Airplane Relationship Specialty Start Date End Date Miguel Sharpe, SALES ASSOCIATE KEY HOLDER - FARMWORKER MACHINE PCP - General Family Medicine 04/08/20 Electrician Supervisor Airplane Relationship Specialty Start Date End Date Miguel SharpeIOANA - DIANELYS PCP - General Family Medicine 04/08/20 Electrician Supervisor Airplane Relationship Specialty Start Date End Date Miguel Sharpe, IOANA - FARMWORKER MACHINE PCP - General Family Medicine 04/08/20 FOR [...] BE BASED ON THE PRIMARY CLINICAL RECORDS. [facility] [employer] [facility]. provides no warranty or guarantee of the accuracy or completeness of information in this document.
[2023-12-30 10:02] VITALS: BP 122/74; PULSE 93
--- NOTE | 2023-12-30 10:16 | US_ITS ---
[place] [id number] Patient Name: TARA FLOREZ MRN: [id number] date: 1995 Sex: F Assigned Patient Location: [facility] Current Patient Location: Accession/Order Number: [id number] Exam Date: 12/30/2023 10:17 Report Date: 12/30/2023 12:19 At the request of: BRUCE CARD Procedure: US OB BPP w non-stress EXAMINATION: US OB BPP w non-stress HISTORY:Excessive growth O36.60X0 COMPARISON: Ultrasound OB biophysical 12/23/2023 TECHNIQUE: Ultrasound biophysical profile was performed in the radiology department. BREATHING MOVEMENTS: 2 GROSS BODY MOVEMENTS: 2 TONE: 2 QUALITATIVE AMNIOTIC FLUID VOLUME: 2 PRESENTATION: CEPHALIC HEART RATE: 146.74 bpm AMNIOTIC FLUID VOLUME: 16.59 cm GESTATIONAL AGE: 39 weeks 0 days US/US OB BPP w non-stress IMPRESSION: Total biophysical profile score: 8 Electronically authenticated by: ARPITA MOLINA Date: 12/30/2023 12:19
== END 2023-12-30 11:00 | disposition home or self-care (01) ==
LOC: US 07:10 → FBC 09:55
PROVIDERS: Visit Provider Obstetrics & Gynecology
DX: O36.60X0 Maternal care for excessive fetal growth, unspecified trimester, not applicable or unspecified (principal); Z3A.39 39 weeks gestation of pregnancy
CPT/HCPCS: 76818

== ENCOUNTER 2024-01-03 10:05 | Inpatient (IN) | payer MEDICAID, SELFPAY ==
[2024-01-03] VITALS (29 sets, daily range): BP systolic 84–125; BP diastolic 43–77; PULSE 63–100; TEMP 36.2–36.7; O2SAT 95–100
[2024-01-03] MEDS: 0.9 % SODIUM CHLORIDE 1,000 ML 1000 ML IV (10:30)
[2024-01-03 11:21] LABS: Basophils Percent Auto 0.3 % (0.2-2.0); Eosinophils Percent Auto 0.3 % (0.9-7.0); Hematocrit 35.9 % (36.0-48.0); Immature Granulocytes Abs Auto 0.07 10^3/uL (0.00-0.03); Immature Granulocytes Pct Auto 0.6 % (0.0-0.5); Lymphocytes Absolute Auto 2.5 10^3/uL (1.2-3.8); Lymphocytes Percent Auto 20.9 % (20.5-60.0); Mean Corpuscular HGB Conc 33.4 g/dL (29.9-35.2); Mean Corpuscular Hemoglobin 27.1 pg (26.7-34.0); Mean Corpuscular Volume 81.2 fL (81.0-99.0); Mean Platelet Volume 11.5 fL (9.5-13.5); Monocytes Absolute Auto 0.7 10^3/uL (0.3-0.8); Monocytes Percent Auto 5.7 % (1.7-12.0); Neutrophils Absolute Auto 8.7 10^3/uL (1.4-6.5); Neutrophils Percent Auto 72.2 % (43.0-75.0); Platelet Count 170 10^3/uL (150-450); Red Blood Count 4.42 10^6/uL (4.20-5.40)
[2024-01-03 11:32] LABS: Amphetamine Screen Urine NEGATIVE (NEGATIVE); Barbiturates Screen Urine NEGATIVE (NEGATIVE); Benzodiazepines Screen Urine NEGATIVE (NEGATIVE); Buprenorphine Screen Urine NEGATIVE (NEGATIVE); Cannabinoid Screen Urine NEGATIVE (NEGATIVE); Cocaine Screen Urine NEGATIVE (NEGATIVE); Methadone Screen Urine NEGATIVE (NEGATIVE); Methamphetamines Screen Urine NEGATIVE (NEGATIVE); Opiate Screen Urine NEGATIVE (NEGATIVE); Oxycodone Screen Urine NEGATIVE (NEGATIVE); Phencyclidine Screen Urine NEGATIVE (NEGATIVE); Tricyclic Antidepressant Urine NEGATIVE (NEGATIVE)
[2024-01-03] MEDS: METOCLOPRAMIDE HCL 10 MG/2 ML VIAL IVP (11:59)
[2024-01-03] MEDS: CITRIC ACID/SODIUM CITRATE 30 ML SOLUTION ORACIT SHOHL'S SOLN PO (11:59)
[2024-01-03] MEDS: 0.9 % SODIUM CHLORIDE 1,000 ML 125 ML IV (12:00)
[2024-01-03] MEDS: FAMOTIDINE/PF 20 MG/2 ML VIAL IV (12:00)
[2024-01-03] MEDS: CEFAZOLIN SODIUM/DEXTROSE,ISO 2 GM/50 ML PIGGYBACK IV ×2 (12:28→19:18)
[2024-01-03] MEDS: LACTATED RINGER'S SOLUTION 1,000 ML 50 ML IV (13:04)
--- NOTE | 2024-01-03 13:28 | PM.ONB ---
Brief Operative Note Date of procedure: 01/03/24 Pre-op diagnosis general: iup at 39wks, macrosomia Post-op diagnosis: same as pre-op Procedure: NAME OF PROCEDURE: [ section ] PROCEDURE: Patient was taken back to the Operating Room where she was given a spinal anesthesia with Duramorph without difficulty. She was prepped and draped in the normal sterile fashion. A Pfannenstiel skin incision was then made 2 cm above the symphysis pubis and carried down to underlying rectus fascia using a Bovie. The fascia was incised in the midline and extended laterally using Avitia scissors. Two Odilon clamps were placed on the superior aspect of the fascia and dissected off the underlying rectus muscles. The same was performed on the inferior aspect as well. The muscles were then in the midline. Peritoneum was identified and entered bluntly. The peritoneum was then extended superiorly and inferiorly with good visualization of the bladder. The bladder blade was inserted. A low transverse incision was made on the patient's uterus and extended laterally digitally. The infant was then delivered atraumatically after the bladder blade was removed in the cephalic position. The cord was clamped and cut. Cord blood was obtained. The infant was handed off to awaiting team. The patient's placenta was spontaneously delivered. The uterus was then exteriorized. The uterus was cleared of all clots and debris. The bladder blade was reinserted. The patient's uterine incision was closed using #0 Vicryl in a running lock fashion. Excellent hemostasis was assured. The uterus was then returned to the patient's abdomen. The patient's abdomen was copiously irrigated using warm saline. Peritoneal gutters were cleared of all clots and debris. Again excellent hemostasis was assured. The patient's peritoneum was closed using 3-0 Vicryl in a running fashion. The patient's fascia was closed using #0 Vicryl in a running fashion. The patient's skin was closed using 4-0 Vicryl subcuticularly. The patient tolerated the procedure well. Sponge, lap, and needle counts were correct x2. The patient was taken to the Recovery Room in stable condition. Anesthesia: spinal Surgeon: Aditya Cervantes Construction Ironworker: Ellen Garcia Estimated blood loss (mL): 575 Pathology: none sent Condition: stable Disposition: floor Urinary Catheter Management Urinary Catheter Management Urethral: Cath placed during this visit: no
--- NOTE | 2024-01-03 13:31 | P.OBPRC_ITS ---
Procedure Pre-op/Post-op diagnoses: Pre-Op/Post-Op Diagnoses Operation Date: 01/03/24 12:00 <No data on this case meets the specified criteria> Procedure: Procedures Operation Date: 01/03/24 12:00 Actual Procedure Side Surgeon p Not Applicable Aditya Cervantes DO Retail Event Assistant: Ellen Garcia Estimated blood loss (mL): 575 Disposition: floor Anesthesia type: Spinal
[2024-01-03] MEDS: OXYTOCIN/0.9 % SODIUM CHLORIDE 20 UNITS/1,000 ML PLAST..BAG 125 UNIT IV (14:30)
[2024-01-03] MEDS: KETOROLAC TROMETHAMINE 30 MG/ML VIAL IVP (18:09)
--- NOTE | 2024-01-03 19:39 | PC.NURSE ---
1800 iv restarted in right hand, removed from left hand, medicated with toradol
[2024-01-04] VITALS (7 sets, daily range): BP systolic 100–117; BP diastolic 62–69; PULSE 83–90; TEMP 36.4–36.7
[2024-01-04] MEDS: ENOXAPARIN SODIUM 40 MG/0.4 ML SYRINGE SUBQ (00:18)
[2024-01-04] MEDS: KETOROLAC TROMETHAMINE 30 MG/ML VIAL IVP ×4 (00:19→17:48)
[2024-01-04 06:46] LABS: Basophils Percent Auto 0.2 % (0.2-2.0); Eosinophils Percent Auto 0.1 % (0.9-7.0); Hematocrit 30.1 % (36.0-48.0); Hemoglobin 9.7 g/dL (12.0-16.0); Immature Granulocytes Pct Auto 0.6 % (0.0-0.5); Lymphocytes Percent Auto 19.3 % (20.5-60.0); Mean Corpuscular HGB Conc 32.2 g/dL (29.9-35.2); Mean Corpuscular Volume 83.8 fL (81.0-99.0); Mean Platelet Volume 11.6 fL (9.5-13.5); Monocytes Absolute Auto 1.1 10^3/uL (0.3-0.8); Monocytes Percent Auto 7.2 % (1.7-12.0); Neutrophils Absolute Auto 11.2 10^3/uL (1.4-6.5); Neutrophils Percent Auto 72.6 % (43.0-75.0); Platelet Count 149 10^3/uL (150-450); Red Blood Count 3.59 10^6/uL (4.20-5.40); Red Cell Distribution Width 13.9 % (11.0-15.0); White Blood Count 15.5 10^3/uL (4.0-11.0)
--- NOTE | 2024-01-04 08:30 | P.OBPN_ITS ---
OB - PN: Subj Subjective Patient comments: no complaints [place] status: doing well [place] feeding status: exclusively Exam Constitutional Vital Signs, click to edit/add: Last Vital Signs Temp 97.5 F L 01/04/24 04:08 Pulse 87 01/04/24 08:03 Resp 18 01/04/24 04:30 BP 111/69 01/04/24 08:03 Pulse Ox 99 01/03/24 16:00 O2 Del Method Room Air 01/04/24 04:30 Documenting provider has reviewed patient's vital signs: yes Common normals: no apparent distress, oriented x3 and healthy appearing Orientation/consciousness: Yes awake, Yes oriented to person, Yes oriented to place and Yes oriented to time HENMT Common normals: normocephalic Eye Common normals: EOMs intact bilaterally Alignment: alignment normal Neck & C-Spine Common normals: full ROM and no lymphadenopathy Lymph Lymphatic: no lymphadenopathy noted Respiratory Common normals: normal respiratory effort Effort & inspection: able to speak in complete sentences Auscultation: clear to auscultation bilaterally Cardio Common normals: regular rate and regular rhythm Rate: regular rate Rhythm: regular rhythm GI Common normals: Normal to inspection, nondistended, normoactive bowel sounds present and soft to palpation Auscultation: normoactive bowel sounds Palpation: soft Common normals: no CVA tenderness Back & Pelvis Common normals: no CVA tenderness Thoracic spine/upper back: normal to inspection Extremity Common normals: normal to inspection and full ROM Neuro Common normals: oriented x3 Sensorium/orientation: awake, alert, oriented to person, oriented to place and oriented to time Results Labs Labs: Short CBC 01/03/24 01/04/24 Range/Units 10:45 06:05 WBC 12.0 H 15.5 H (4.0-11.0) 10^3/uL Hgb 12.0 9.7 L (12.0-16.0) g/dL Hct 35.9 L 30.1 L (36.0-48.0) % Plt Count 170 149 L (150-450) 10^3/uL Urinary Catheter Management Urinary Catheter Management Urethral: Cath placed during this visit: yes Urethral indwelling: No Insertion date: 01/03/24 Insertion time: 12:55 OB - PN: A/P Plan - day: 1 Plan: routine postop care Time Spent with Patient Time: Total time spent is greater than 50% in coordination of care (as documented) at patient's floor/unit and/or counseling patient: Total time spent with greater than 50% in coordination of care (as documented) at patient's floor/unit and/or counseling patient: less than 15 minutes
[2024-01-04] MEDS: DOCUSATE SODIUM 100 MG CAPSULE PO (11:57)
--- NOTE | 2024-01-04 12:08 | PC.NURSE ---
medicated prior to showering
[2024-01-04] MEDS: ACETAMINOPHEN 500 MG TABLET 1000 MG PO ×2 (12:59→19:17)
--- NOTE | 2024-01-04 20:13 | PC.NURSE ---
1700 Incison clean with steri strips intact with small amt serous drainage, [address] to absorb moisture
[2024-01-05] MEDS: ENOXAPARIN SODIUM 40 MG/0.4 ML SYRINGE SUBQ (00:06)
[2024-01-05] MEDS: DOCUSATE SODIUM 100 MG CAPSULE PO ×2 (00:07→08:16)
[2024-01-05] MEDS: KETOROLAC TROMETHAMINE 30 MG/ML VIAL IVP ×3 (00:14→13:28)
[2024-01-05 00:18] VITALS: BP 117/70; PULSE 77; TEMP 36.8
[2024-01-05] MEDS: ACETAMINOPHEN 500 MG TABLET 1000 MG PO ×2 (01:39→16:45)
--- NOTE | 2024-01-05 07:38 | P.OBPN_ITS ---
OB - PN: Subj Subjective Patient comments: no complaints and pain well controlled [place] status: doing well Exam Constitutional Vital Signs, click to edit/add: Last Vital Signs Temp 98.3 F 01/05/24 00:18 Pulse 77 01/05/24 00:18 Resp 16 01/04/24 16:15 BP 117/70 01/05/24 00:18 Pulse Ox 99 01/03/24 16:00 O2 Del Method Room Air 01/04/24 04:30 Documenting provider has reviewed patient's vital signs: yes Common normals: no apparent distress Respiratory Common normals: normal respiratory effort and clear to auscultation bilaterally Cardio Common normals: regular rate and regular rhythm GI Common normals: Normal to inspection, nondistended, normoactive bowel sounds present Extremity Common normals: no clubbing, cyanosis or edema Urinary Catheter Management Urinary Catheter Management Urethral: Cath placed during this visit: yes Urethral indwelling: No Insertion date: 01/03/24 Insertion time: 12:55 OB - PN: A/P Plan - day: 2 Plan: routine postop care, discharge home and other (fu 1wk) Time Spent with Patient Time: Total time spent is greater than 50% in coordination of care (as documented) at patient's floor/unit and/or counseling patient: Total time spent with greater than 50% in coordination of care (as documented) at patient's floor/unit and/or counseling patient: less than 15 minutes
[2024-01-05 08:16] VITALS: BP 123/79; PULSE 70
[2024-01-05 08:45] VITALS: BP 123/79; PULSE 70; TEMP 36.7
[2024-01-05 16:45] VITALS: BP 118/67; PULSE 85; TEMP 36.9
[2024-01-05 16:47] VITALS: BP 118/67; PULSE 85
[2024-01-05] MEDS: IBUPROFEN 400 MG TABLET 800 MG PO (21:37)
[2024-01-06] MEDS: ENOXAPARIN SODIUM 40 MG/0.4 ML SYRINGE SUBQ (00:33)
[2024-01-06] MEDS: DOCUSATE SODIUM 100 MG CAPSULE PO ×2 (00:34→08:13)
[2024-01-06] MEDS: ACETAMINOPHEN 500 MG TABLET 1000 MG PO ×2 (00:34→08:12)
[2024-01-06 00:38] VITALS: BP 116/78; PULSE 89
[2024-01-06 00:39] VITALS: TEMP 36.5
[2024-01-06] MEDS: IBUPROFEN 400 MG TABLET 800 MG PO (06:23)
--- NOTE | 2024-01-06 07:49 | PM.OBPN ---
OB - PN: Subj Subjective Patient comments: no complaints [place] status: doing well feeding status: exclusively Exam Constitutional Vital Signs, click to edit/add: Last Vital Signs Temp 97.7 F 01/06/24 00:39 Pulse 89 01/06/24 00:38 Resp 18 01/06/24 00:38 BP 116/78 01/06/24 00:38 Pulse Ox 99 01/03/24 16:00 O2 Del Method Room Air 01/06/24 00:38 Documenting provider has reviewed patient's vital signs: yes Common normals: no apparent distress General appearance: cooperative Orientation/consciousness: Yes awake, Yes oriented to person, Yes oriented to place and Yes oriented to time HENMT Common normals: normocephalic Eye Common normals: EOMs intact bilaterally Neck & C-Spine Common normals: full ROM General: normal visual inspection Lymph Lymphatic: no lymphadenopathy noted Chest Common normals: inspection of chest normal Respiratory Common normals: normal respiratory effort Cardio Common normals: regular rate and regular rhythm Rate: regular rate GI Common normals: Normal to inspection, nondistended, normoactive bowel sounds present Palpation: soft Percussion: normal to percussion Back & Pelvis Thoracic spine/upper back: normal to inspection Extremity Common normals: normal to inspection General: normal exam except as noted Neuro Common normals: oriented x3 Sensorium/orientation: awake, alert, oriented to person, oriented to place and oriented to time Psych Common normals: mental status grossly normal Appearance: grossly normal Attitude: calm Urinary Catheter Management Urinary Catheter Management Urethral: Cath placed during this visit: yes Urethral indwelling: No Insertion date: 01/03/24 Insertion time: 12:55 OB - PN: A/P Assessment and Plan (1) Term : Plan - day: 3 Plan: discharge home Time Spent with Patient Time: Total time spent is greater than 50% in coordination of care (as documented) at patient's floor/unit and/or counseling patient: Total time spent with greater than 50% in coordination of care (as documented) at patient's floor/unit and/or counseling patient: less than 15 minutes
[2024-01-06 08:21] VITALS: BP 139/82; PULSE 94
[2024-01-06 10:34] VITALS: TEMP 36.7
== END 2024-01-06 11:16 | disposition home or self-care (01) | DRG 540 ==
PROVIDERS: Admitting Provider Obstetrics & Gynecology; Visit Provider Obstetrics & Gynecology
PROC: 10D00Z1 Extraction of Products of Conception, Low, Open Approach (ICD-10-PCS; CPT 59514; principal; 2024-01-03 12:00)
DX: O36.63X0 Maternal care for excessive fetal growth, third trimester, not applicable or unspecified (principal); Z3A.39 39 weeks gestation of pregnancy; Z37.0 Single live birth
CPT/HCPCS: 36415; 59050; 80307; 85025; 86850; 86900; 86901; 94667; 94668; 96372; 96374; 96375; 96376; J0690; J1100; J1650; J1885; J2274; J2405; J2590; J2765

== ENCOUNTER 2024-07-10 10:29 | Outpatient (RCR) | payer MEDICAID, SELFPAY ==
[2024-07-10 11:49] LABS: HCG Quantitative 15860 mIU/mL
[2024-07-13 11:26] LABS: HCG Quantitative 27763 mIU/mL
== END 2024-07-28 16:58 | disposition home or self-care (01) ==
LOC: LAB 10:29
PROVIDERS: Visit Provider Obstetrics & Gynecology
DX: N92.6 Irregular menstruation, unspecified (principal)
CPT/HCPCS: 36415; 84702

== ENCOUNTER 2024-08-07 10:23 | Outpatient (OUT) | payer MEDICAID, SELFPAY ==
--- OUTSIDE RECORDS SUMMARY | 2024-08-07 10:31 | XMS_ITS | CCD ---
Author Organization [facility] Care Team Providers Care Valve Pipe Irrigator Name Role Phone NO FAMILY PHYSICIAN, 837 Unavailable Unavail able FELIX GALVAN Unavailable Unavailable Leydi, Miguel Primary Care Provider [phone] Jcakson Haas Primary Care Provider Miguel Holley Primary Care Provider [phone] Lyedi Miguel M Primary Care Provider [phone] Miguel Holley CNP Primary Care Provider Leydi OPTICAL INSTRUMENT SPECIALIST - SHADE HANGER, Miguel M Primary Care Provider LEYDI MIGUEL M Referring Unavailable LEYDI, MIGUEL M Primary Care Unavailable Leydi OPTICAL INSTRUMENT SPECIALIST - SHADE HANGER, Miguel M Primary Care Provider Leydi OPTICAL INSTRUMENT SPECIALIST - SHADE HANGER, Miguel M Primary Care Provider Shona Lucio Primary Care Physician Yeison Holley OPTICAL INSTRUMENT SPECIALIST - SHADE HANGER, Miguel M Primary Care Provider Leydi OPTICAL INSTRUMENT SPECIALIST - SHADE HANGER, Miguel M Primary Care Provider LEYDI, MIGUEL [...] Unavailable Unavailable Primary Care Provider Unavailabl e DAYRON, LATASHA Attending Unavailable BILLY, ADITYA Attending Unavailable BILLY, ADITYA Attending Unavailable DAYRON, LATASHA Attending Unavailable BILLY, ADITYA Attending Unavailable BILLY, ADITYA Attending Unavailable BILLY, ADITYA Attending Unavailable BILLY, ADITYA Attending Unavailable DAYRON, LATASHA Attending Unavailable DAYRON, LATASHA Attending Unavailable DAYRON, LATASHA Attending Unavailable DAYRON, LATASHA Attending Unavailable DAYRON, LATASHA Attending Unavailable DAYRON, LATASHA Attending Unavailable DAYRON, LATASHA Attending Unavailable Allergies Allergy Classification Reported Allergen(s) Allergy Type Date of Onset Reaction(s) Facility Aminoketones (4 sources) buPROPion; Translations: [Wellbutrin SR 100 MG Oral Tablet Extended Release 12 Hour] Drug Allergy 03-05-20 20 Wellbutrin SR [facility] Work Phone: Corticosteroids (6 sources) Triamcinolone Drug Allergy 10-14-19 14 Other (See Comments) [facility] Lisdexamfetamine (1 source) Lisdexamfetamine Drug Allergy 10-04-19 21 Vyvanse [facility] Work Phone: Naltrexone (4 sources) Naltrexone; Translations: [Naltrexone HCl 50 MG Oral Tablet] Drug Allergy 03-05-20 20 Naltrexone HCl [facility] Work Phone: (1 source) Triamcinolone; Translations: [TRIAMCINOLONE ACETONIDE] Drug Allergy 10-12-19 15 [facility] Repository (16 sources) Triamcinolone; Translations: [Kenalog] Drug Allergy 07-06-19 20 [facility] Work Phone: (20 sources) Triamcinolone Drug Allergy 10-14-19 14 Other (See Comments), Other, Hives [facility] [place], [place] (17 sources) Poison spencer Allergy to substance 07-20-19 20 [facility] Work Phone: (3 sources) buPROPion; Translations: [Wellbutrin SR 100 MG Oral Tablet Extended Release 12 Hour] Drug Allergy 03-05-20 20 Wellbutrin SR [facility] Work Phone: (3 sources) Naltrexone; Translations: [Naltrexone HCl 50 MG Oral Tablet] Drug Allergy 03-05-20 20 Naltrexone HCl [facility] Work Phone: (9 sources) Other Propensity to adverse reactions 04-18-20 24 [facility] Medications Current Medications Medication Drug Class(es) Dates [...] etaminophen (NORCO) tablet 5-325 mg (STARTER PACK) acetaminophen 325 mg / oxyCODONE hydrochloride 5 mg oral tablet (12 sources) Opioid Agonist Start: 01-06-2024 oxyCODONE-acetaminophen (Percocet) 5-325 MG tablet 01/06/2024 Active 24 hr amphetamine aspartate 6.25 mg / amphetamine sulfate 6.25 mg / dextroamphetamine saccharate 6.25 mg / dextroamphetamine sulfate 6.25 mg extended release oral capsule (2 sources) Central Nervous System Stimulant Start: 01-02-2017 take 1 capsule by mouth once daily in the morning amphetamine-dextroampheta mine (ADDERALL XR) 25 MG extended release capsule [...] days 21 capsule 0 10/15/2020 10/22/2020 Active Docusate (12 sources) Docusate Calcium (STOOL SOFTENER PO) Take by mouth Active ethinyl estradiol 0.035 mg / norgestimate [...] times daily. 118 mL 1 12/17/2016 Active ibuprofen 800 mg oral tablet (12 sources) Nonsteroidal Anti-inflammatory Drug Start: 01-06-2024 ibuprofen 800 MG tablet 01/06/2024 Active levonorgestrel 0.642974 mg/hr intrauterine system (17 sources) Progestin, Progestin-contain ing Intrauterine Device Start: 07-20-2019 Mirena (52 MG) 20 MCG/24HR Intrauterine Intrauterine device 07/20/2019 Provider: 24 hr metFORMIN hydrochloride 500 mg extended release oral tablet (4 sources) Biguanide Start: 06-14-2024 End: 06-14-2025 take 1 tablet by mouth every twenty-fou r hours at mealtime metFORMIN XR (Glucophage-XR) 500 MG 24 hr tablet Indications: Encounter for weight management Take 1 tablet (500 mg) by mouth in the evening. Take with meals Do not crush, chew, or split. 30 tablet 11 06/14/2024 06/14/2025 Active methylPREDNISolone (19 sources) Corticosteroid Start: 02-23-2024 methylPREDNISolone (Medrol Dospak) 4 MG tablets Indications: Rash Day 1: 6 tablets Day 2: 5 tablets Day 3: 4 tablets Day 4: 3 tablets Day 5: 2 tablets Day 6: 1 tablet 21 tablet 02/23/2024 Active Start: 12-05-2019 End: 03-05-2020 Medrol 4 MG Oral Tablet Ther apy Pack 12/05/2019 - 03/05/2020 Provider: Poly Franco CNP multivitamin () 27-0.8 MG tablet (2 sources) Start: 07-03-2024 End: 07-03-2025 take 1 tablet by mouth once daily multivitamin () 27-0.8 MG tablet Indications: 6 weeks follow-up Take 1 tablet by mouth Daily 360 tablet 07/03/2024 07/03/2025 Active phentermine hydrochloride 37.5 mg oral tablet (20 sources) Sympathomimetic Amine Anorectic Start: 04-18-2024 End: 07-14-2024 take 1 tablet by mouth before mealtime phentermine (Adipex-P) 37.5 MG tablet Indications: Encounter for weight management Take 1 tablet (37.5 mg) by mouth in the morning. Take before meals. 30 tablet 06/14/2024 07/14/2024 Active Start: 07-20-2019 End: 10-12-2019 Adipex-P 37.5 MG Oral Tablet 08/17/2019 - 09/14/2019 Provider: Miguel Holley CNP Vit-Fe Fumarate-FA ( Plus/Iron) 27-1 MG tablet (9 sources) Start: 06-11-2023 End: 06-10-2024 take 1 [...] 10-15-2020 promethazine (PHENERGAN) inj ection 12.5 mg simethicone 80 mg chewable tablet (12 sources) take 1 tablet by mouth every six hours as needed simethicone (Mylicon) 80 MG chewable tablet Chew 80 mg every 6 (six) hours if needed for flatulence Active topiramate 50 mg oral tablet (4 sources) [...] completed) Start: 09-10-2021 take 1 capsule by [facility] once daily in the morning VYVANSE 50 MG capsule TAKE ONE CAPSULE BY MOUTH EVERY MORNING 0 09/10/2021 Active 1 ml morphine sulfate 4 mg/ml cartridge (2 sources) Opioid Agonist Start: 10-15-2020 [...] End: 10-15-2020 ondansetron (ZOFRAN) injection 4 mg predniSONE 20 mg oral tablet (20 sources) [...] Translations: [Generalized abdominal pain] Onset: 03-24-2023 Episodic Administrative/social admission (5 sources) Patient encounter status; Translations: [Persons encountering health services in other specified circumstances] 04-18-2024 Episodic Anxiety disorders (20 sources) Generalized anxiety [...] Translations: [Nausea with vomiting, unspecified] Episodic Other aftercare (2 sources) Surgical follow-up; Translations: [Encounter for follow-up examination after completed treatment for conditions other than malignant neoplasm] 04-18-2024 Episodic Other connective tissue disease (1 source) [...] Translations: [Morbid obesity] Onset: 09-23-2020 Chronic Other nutritional; endocrine; and metabolic disorders (1 source) Weight increased; Translations: [Abnormal weight gain] 05-17-2024 Episodic Other screening for suspected conditions (not [...] device, initial encounter] Onset: 01-20-2023 Episodic Other complications of (12 sources) Excessive growth affecting management of mother; Translations: [Maternal care for excessive growth, unspecified trimester, not applicable or unspecified] Onset: 12-06-2023 Resolved: 01-03-2024 02-21-2024 Episodic Other lower respiratory disease (6 sources) Cough; Translations: [Cough] Onset: 03-19-2020 Episodic Other and delivery including normal (16 sources) Second trimester ; Translations: [Encounter for supervision of normal , unspecified, second trimester] Onset: 12-06-2023 Resolved: 01-03-2024 07-13-2023 Episodic Other skin disorders (9 sources) Eruption; Translations: [Rash and other nonspecific skin eruption] Onset: 12-05-2019 Episodic Unclassified (20 sources) Finding of body mass index; Translations: [Body Mass Index] Onset: 07-06-2019 Viral infection (9 sources) Herpes labialis; Translations: [Other specified viral infection] Onset: 11-20-2014 11-20-2014 Episodic Results Test Name Value Interpretation Reference Range Facility US OB TRANSVAGINALon 025 US OB TRANSVAGINAL EXAM: US OB TRANSVAG INAL HISTORY: Dating. Unknown LMP. COMPARISON: None available. TECHNIQUE: Two-dimensional transvaginal grayscale ultrasound imaging of the pelvis was performed. Color Doppler evaluation of the ovaries was also performed. FINDINGS: The uterus demonstrates a normal homogeneous echotexture. The cervix measures 3.8 cm in length and the cervical os is closed. The right ovary measures 3.3 x 1.8 x 2.1 cm and demonstrates a normal echotexture. There is normal color Doppler flow. The left ovary measures 2.8 x 1.3 x 2.3 cm and demonstrates a normal echotexture. There is normal color Doppler flow. No fluid is present within the cul-de-sac. There is a single, live intrauterine gestation identified with a heart rate of 176 beats per minute and a crown-rump length measurement of 2.7 cm, correlating to a gestational age of 9 weeks 3 days (+/- 6 days). There is no subchorionic hemorrhage visualized. A yolk sac is visualized. IMPRESSION: 1. Single, live intrauterine gestation with today's ultrasound measurements correlating to a gestational age of 9 weeks 3 days (+/- 6 days). CARTER by today's ultrasound is 03/06/2025. 2. Normal color Doppler evaluation of the bilateral ovaries. Electronically Signed:Electronically signed by PENG JOHNSON II, MD, PHD at 05-Aug-2024 09:13:53 AM [facility] Normal Not Available Comment on above: Order Comment: US OB TRANSVAGINAL No LMP recorded. [facility] PREG QUANT HCGon 025 HCG QUANTITATIVE 16033 mIU/mL [facility] Comment on above: 5-50 0.2-1 WEEK 50-500 1-2 WEEKS 100-5,000 2-3 WEEKS 500-10,000 3-4 WEEKS 1,000-50,000 4-5 WEEKS 10,000-100,000 5-6 WEEKS 15,000-200,000 6-8 WEEKS 10,000-100,000 2-[facility] 025 HCG QUANTITATIVE 96359 mIU/mL [facility] Comment on above: 5-50 0.2-1 WEEK 50-500 1-2 WEEKS 100-5,000 2-3 WEEKS 500-10,000 3-4 WEEKS 1,000-50,000 4-5 WEEKS 10,000-100,000 5-6 WEEKS 15,000-200,000 6-8 WEEKS 10,000-100,000 2-3 [facility]dipstick) panel (U)on 07-15-2023 Bilirubin, UA Negative Negative - 4(70) +++ mg/dL [facility] Blood, UA Negative Negative - 50 Chuy/mcL [facility] Clarity, UA Clear [facility] Color, UA Yellow [facility] Glucose, UA Negative Negative - 1999(110) ++++ mg/dL [facility] Interpretation and review of laboratory results Normal [facility] Ketones, UA Positive Negative - 160(16) ++++ mg/dL [facility] Leukocytes, UA Negative Negative - 500+++ Sadi/mcL [facility] Nitrite, UA Negative Negative - Positive [facility] pH, UA 6.5 5 - 9 [facility] Protein, UA Negative Negative - 1999(20) ++++ mg/dL [facility] Spec Grav, UA 1.025 1 - 1.03 [facility] Urobilinogen, UA 0.2 0.2 - 12 mg/dL [facility] HCG, Quanton 05-12-2023 HCG, Quant 9701.0 mIU/mL High <5 [facility] Comment on above: Result Comment: Non-preg premeno <=5 Postmeno <=8 Male <=3 If HCG results do not concur with clinical observations, additional testing to confirm results is recommended. Performed By: #### B HCG #### [facility] [address] [place], [place] [id number] Compliance Quality Performance Analyst: Mateusz Brand MD HCG, Quanton 05-07-2023 HCG, Quant 3514.0 mIU/mL High <5 [facility] Comment on above: Result Comment: Non-preg premeno <=5 Postmeno <=8 Male <=3 If HCG results do not concur with clinical observations, additional testing to confirm results is recommended. Performed By: #### B HCG #### [facility] [address] [place], [place] [id number] Compliance Quality Performance Analyst: Mateusz Brand MD HCG, Quanton 05-05-2023 HCG, Quant 2224.0 mIU/mL High <5 [facility] Comment on above: Result Comment: Non-preg premeno <=5 Postmeno <=8 Male <=3 If HCG results do not concur with clinical observations, additional testing to confirm results is recommended. Performed By: #### B HCG #### [facility] [address] [place], [place] [phone] Compliance Quality Performance Analyst: Mateusz Brand MD US PELVIS COMPLETE NON-OB [...] Lamb MD 03/25/23 Final result Normal [facility] CBC with Diffon 03-24-2023 Abs. Basophil 0.06 k/uL Normal 0.00-0.20 [facility] Comment on above: Performed By: #### C ABDULLAHI SPENCER #### [address] [place], [place] [phone] Compliance Quality Performance Analyst: Mateusz Brand MD Abs.Imm.Granulocyte 0.03 k/uL Normal 0.00-0.30 [facility] Comment on above: Performed By: #### C ABDULLAHI SPENCER #### [address] [place], [place] [phone] Compliance Quality Performance Analyst: Mateusz Brand MD Abs.Neutrophil (Seg) 7.07 k/uL Normal 1.50-8.10 [facility] Comment on above: Performed By: #### C ABDULLAHI SPENCER #### [address] [place] [address] Compliance Quality Performance Analyst: Mateusz Brand MD Basophils/100 WBC (Bld) 1 % Normal 0-2 [facility] Comment on above: Performed By: #### [facility] #### [address] [place] [address] Compliance Quality Performance Analyst: Mateusz Brand MD Eosinophils (Bld) [#/Vol] 0.13 10*3/uL Normal 0.00-0.44 [facility] Comment on above: Performed By: #### C TJ CG #### [address] [place] [address] Compliance Quality Performance Analyst: Mateusz Brand MD Eosinophils/100 WBC (Bld) 1 % Normal 1-4 [facility] Comment on above: Performed By: #### [facility] #### [address] [place] [address] Compliance Quality Performance Analyst: Mateusz Brand MD Erythrocyte distribution width (RBC) [Ratio] 11.9 % Normal 11.8-14.4 [facility] Comment on above: Performed By: #### [facility] #### [address] [place] [address] Compliance Quality Performance Analyst: Mateusz Brand MD Hematocrit (Bld) [Volume fraction] 37.8 % Normal 36.3-47.1 [facility] Comment on above: Performed By: #### C ABDULLAHI SPENCER #### [address] [place], [facility] Compliance Quality Performance Analyst: Mateusz Brand MD Hemoglobin (Bld) [Mass/Vol] 13.3 g/dL Normal 11.9-15.1 [facility] Comment on above: Performed By: #### C TJ MarisaG #### [address] [place], [place] [phone] Compliance Quality Performance Analyst: Mateusz Brand MD Immature granulocytes/100 WBC (Bld) 0 % Normal 0 [facility] Comment on above: Performed By: #### C TJ MarisaG #### [address] [place] [address] Compliance Quality Performance Analyst: Mateusz Bradn MD Lymphocytes (Bld) [#/Vol] 3.03 10*3/uL Normal 1.10-3.70 [facility] Comment on above: Performed By: #### C ANDREW SPENCERCG #### [address] [place], [facility] Compliance Quality Performance Analyst: Mateusz Brand MD Lymphocytes/100 WBC (Bld) 28 % Normal 24-43 [facility] Comment on above: Performed By: #### C TJ MarisaG #### [address] [place], [facility] Compliance Quality Performance Analyst: Mateusz Brand MD MCH (RBC) [Entitic mass] 28.6 pg Normal 25.2-33.5 [facility] Comment on above: Performed By: #### C TJ MarisaG #### [address] [place], [facility] Compliance Quality Performance Analyst: Mateusz Brand MD MCHC (RBC) [Mass/Vol] 35.2 g/dL High 28.4-34.8 [facility] Comment on above: Performed By: #### C MARTY SPENCERG #### [address] [place], [place] [address] Compliance Quality Performance Analyst: Mateusz Brand MD MCV (RBC) [Entitic vol] 81.3 fL Low 82.6-102.9 [facility] Comment on above: Performed By: #### C TJ MarisaG #### [address] [place], [place] [phone] Compliance Quality Performance Analyst: Mateusz Brand MD Monocytes (Bld) [#/Vol] 0.60 10*3/uL Normal 0.10-1.20 [facility] Comment on above: Performed By: #### C ABDULLAHI SPENCER #### [facility] [address] [place] [address] Compliance Quality Performance Analyst: Mateusz Brand MD Monocytes/100 WBC (Bld) 6 % Normal 3-12 [facility] Comment on above: Performed By: #### C DP, BHCG #### [facility] [address] [place] [address] Compliance Quality Performance Analyst: Mateusz Brand MD Neutrophil (Seg) 64 % Normal 36-65 [facility] Comment on above: Performed By: #### C TJ, CG #### [facility] [address] [place], [place] [phone] Compliance Quality Performance Analyst: Mateusz Brand MD NRBC Automated 0.0 per 100 WBC Normal 0.0 [facility] Comment on above: Performed By: #### C TJ CG #### [address] [place], [place] [address] Compliance Quality Performance Analyst: Mateusz Brand MD Platelet mean volume (Bld) [Entitic vol] 10.6 fL Normal 8.1-13.5 [facility] Comment on above: Performed By: #### C TJ CG #### [address] [place], [facility] Compliance Quality Performance Analyst: Mateusz Brand MD Platelets (Bld) [#/Vol] 231 10*3/uL Normal 138-453 [facility] Comment on above: Performed By: #### C TJ BHCG #### [address] [place], [place] [phone] Compliance Quality Performance Analyst: Mateusz Brand MD RBC (Bld) [#/Vol] 4.65 10*6/uL Normal 3.95-5.11 [facility] Comment on above: Performed By: #### C TJ BHCG #### [address] [place], [facility] Compliance Quality Performance Analyst: Mateusz Brand MD WBC (Bld) [#/Vol] 10.9 10*3/uL Normal 3.5-11.3 [facility] Comment on above: Performed By: #### C DP, BHCG #### [facility] [address] [place] [address] [place] [address] Compliance Quality Performance Analyst: Mateusz Brand MD HCG, Quanton 03-24-2023 HCG, Quant <1.0 Normal <5 [facility] Comment on above: Result Comment: Non-preg premeno <=5 Postmeno <=8 Male <=3 If HCG results do not concur with clinical observations, additional testing to confirm results is recommended. Performed By: #### C DP, BHCG #### [facility] [address] [place] [address] [place] [address] Compliance Quality Performance Analyst: Mateusz Brand MD HCG, ,Urineon 01-20 Beta HCG ( test) Ql (U) Negative Normal NEG [facility] Comment on above: Result Comment: Spec imens with hCG levels near the threshold of the test (25 mIU/mL) may give a negative or indeterminate result. In such cases, another test should be performed with a new specimen in 48-72 hours. If early is suspected clinically in this setting, correlation with quantitative serum b-hCG level is suggested. [facility] has confirmed the use of plasma for this test. This has not been cleared or approved by the U.S. Food and Drug Administration. The FDA has determined that such clearance is not necessary. Performed By: #### U HCG #### [facility] [address] [place] [address] [place] [address] Compliance Quality Performance Analyst: Mateusz Brand MD OPERATIVE REPORTon OPERATIVE REPORT [address] [address] OPERATIVE REPORT PATIENT NAME: ESTEFANIA CEDEÑO : 1995 MED REC NO: [id number] ROOM: ACCOUNT NO: [id number] ADMIT DATE: 01/20/2023 PROVIDER: Vickie Nichols MD [...] cervix in a graduated fashion to #14 Latvian with Adeel dilators. Then, the hysteroscope was [...] good condition. VICKIE NICHOLS MD [id number] Doc#: [id number] CC: Normal [facility] Cytologyon 01-01-2023 Cytology (NOTE) Path Number: [id number] DIAGNOSIS Imaged ThinPrep Pap - Cervical (1 monolayer slide): Specimen Adequacy: Satisfactory for evaluation. -Endocervical/transformat ion zone component is absent. Descriptive Diagnosis: Negative for intraepithelial lesion or malignancy. Fungal organisms morphologically consistent with Sheree species. Cytotech Screener: EY Electronically Signed Out Arsh BELLO(ASCP) ey/01/07/2023 Source of Specimen: A: Imaged ThinPrep Pap - Cervical (1 monolayer slide) HPV Reflex?.................. ....HPV if Abnormal Clinical History Intrauterine device Z01.419 Routine pattern marker exam without abnormal findings High risk HPV DNA testing is requested if the diagnosis is abnormal Processing Lab: [address] [place] [address] Interpretation performed at [address] [phone] This Pap Test has been evaluated with the assistance of the [employer]ricFind[employer] Pap Test Imaging System. The Pap smear is a screening test primarily for squamous epithelial lesions, which is subject to both false negative and false positive results. Your patient should be reminded to consult you immediately if she experiences any suspicious signs or symptoms, regardless of her Pap smear result. GYNECOLOGIC CYTOLOGY REPORT [facility]: [facility] [id number] [facility] ANATOMIC PATHOLOGY [facility] [place] [id number] Normal [facility] C-Reactive Proteinon 022 CRP [Mass/Vol] mg/L 0 - 5 mg/L [facility] CBC with Auto Differentialon 12-16-2021 Absolute Eos # 0.09 [facility] Absolute Immature Granulocyte 0.04 [facility] Absolute Lymph # 2.98 [facility] Absolute [place] # 0.51 [facility] Basophils (Bld) [#/Vol] 0.04 10*3/uL [facility] Basophils/100 WBC (Bld) 0 % 0 - 2 % [facility] Eosinophils/100 WBC (Bld) 1 % 1 - 4 % [facility] Hematocrit (Bld) [Volume fraction] 39.6 % 36.3 - 47.1 % [facility] Hemoglobin (Bld) [Mass/Vol] 13.1 g/dL 11.9 - 15.1 g/dL [facility] Immature granulocytes/100 WBC (Bld) 0 % 0 [facility] Lymphocytes/100 WBC (Bld) 33 % 24 - 43 % [facility] MCH (RBC) [Entitic mass] 28.2 pg 25.2 - 33.5 pg [facility] MCHC (RBC) [Mass/Vol] 33.1 g/dL 28.4 - 34.8 g/dL [facility] MCV (RBC) [Entitic vol] 85.3 fL 82.6 - 102.9 fL [facility] Monocytes/100 WBC (Bld) 6 % 3 - 12 % [facility] NRBC Automated 0.0 0.0 per 100 WBC [facility] Platelet distribution width (Bld) [Ratio] 12.0 % 11.8 - 14.4 % [facility] Platelet mean volume (Bld) [Entitic vol] 11.1 fL 8.1 - 13.5 fL [facility] Platelets (Bld) [#/Vol] 214 10*3/uL [facility] RBC (Bld) [#/Vol] 4.64 10*6/uL 3.95 - 5.1 1 m/uL [facility] Segmented neutrophils/100 WBC (Bld) 60 % 36 - 65 % [facility] Segs Absolute 5.49 [facility] WBC (Bld) [#/Vol] 9.2 10*3/uL [facility] Rheumatoid Factoron 12-17-19 22 Rheumatoid Factor <10 [facility]INF [facility] Sedimentation Rateon 022 Sed Rate 5 [facility] [facility] Acidon 12-16-2021 Urate [Mass/Vol] 4.2 mg/dL 2.4 - 5.7 mg/dL [facility] Basic Metabolic Panel w/ Ref yossi to MGOrdered By: Donny Hatfield on 10-15-2020 Anion gap [Moles/Vol] 13 mmol/L 9 - 17 mmol/L [facility] Work Phone: Calcium [Mass/Vol] 9.6 mg/dL 8.6 - 10. 4 mg/dL [facility] Work Phone: Chloride [Moles/Vol] 105 mmol/L 98 - 10 7 mmol/L [facility] Work Phone: CO2 [Moles/Vol] 22 mmol/L 20 - 31 mmol/L [facility] Work Phone: Creatinine [Mass/Vol] 0.62 mg/dL 0.50 - 0.90 mg/dL [employer] Phone: GFR >60 >60 mL/min [employer] Phone: GFR Non- >60 >60 mL/min [employer] Phone: Glucose [Mass/Vol] 110 mg/dL High 70 - 99 mg/dL [employer] Phone: Interpretation and review of laboratory results Abnormal [employer] Phone: Potassium [Moles/Vol] 3.5 mmol/L Low 3.7 - 5.3 mmol/L [employer] Phone: Sodium [Moles/Vol] 140 mmol/L 135 - 144 mmol/L [employer] Phone: Urea nitrogen (BldV) [Mass/Vol] 12 mg/dL 6 - 20 mg/dL [employer] Phone: Urea nitrogen/Creatinine (Bld) [Mass ratio] 19 [employer] Phone: [employer] Phone: CBC Auto DifferentialOrdered By: Donny Hatfield on 10-15-2020 Absolute Eos # 0.19 [employer] [facility] Work Phone: Absolute Immature Granulocyte 0.06 [employer] Work Phone: Absolute Lymph # 2.50 [employer] [facility] Work Phone: Absolute [place] # 0.75 [employer] [facility] Work Phone: Basophils (Bld) [#/Vol] 0.04 10*3/uL [employer] Phone: Basophils/100 WBC (Bld) 0 % 0 - 2 % [employer] Phone: Differential Type NOT REPORTED [employer] Phone: Eosinophils/100 WBC (Bld) 1 % 1 - 4 % [employer] Phone: Hematocrit (Bld) [Volume fraction] 42.1 % 36.3 - 47.1 % [employer] Phone: Hemoglobin.gastrointes tinal spec 1 Ql (Stl) 14.0 g/dL 11.9 - 15.1 g/dL [employer] Phone: Immature granulocytes/100 WBC (Bld) 0 % 0 [employer] Phone: Interpretation and review of laboratory results Abnormal [employer] Phone: Lymphocytes/100 WBC (Bld) 14 % Low 24 - 43 % [employer] Phone: MCH (RBC) [Entitic mass] 28.1 pg 25.2 - 33.5 pg [employer] Phone: MCHC (RBC) [Mass/Vol] 33.3 g/dL 28.4 - 34.8 g/dL [employer] Phone: MCV (RBC) [Entitic vol] 84.4 fL 82.6 - 102.9 fL [employer] Phone: Monocytes/100 WBC (Bld) 4 % 3 - 12 % [employer] Phone: NRBC Automated 0.0 0.0 per 100 WBC [employer] Phone: Platelet distribution width (Bld) [Ratio] 11.9 % 11.8 - 14.4 % [employer] Phone: Platelet Estimate NOT REPORTED [employer] Phone: Platelet mean volume (Bld) [Entitic vol] 10.7 fL 8.1 - 13.5 fL [employer] Phone: Platelets (Bld) [#/Vol] 220 10*3/uL [employer] Phone: RBC (Bld) [#/Vol] 4.99 10*6/uL 3.95 - 5.1 1 m/uL [employer] Work Phone: RBC (Bld) [#/Vol] NOT REPORTED [employer] Phone: Segmented neutrophils/100 WBC (Bld) 81 % High 36 - 65 % [employer] Work Phone: Segs Absolute 14.20 High [employer] Work Phone: WBC (Bld) [#/Vol] 17.7 10*3/uL High [employer] Work Phone: WBC (Bld) [#/Vol] NOT REPORTED [employer] Phone: [employer] Work Phone: CT ABDOMEN PELVIS W IV CONTR AST Additional Contrast? NoneOrdered By: Donny Hatfield on 10-15-2020 1. Marked hepatic steatosis. 2. Hepatomegaly. 3. Mild colonic diverticulosis without evidence of diverticulitis. [employer] Phone: EXAMINATION: CT OF T HE ABDOMEN [...] COMPARISON: None. HISTORY: ORDERING SYSTEM PROVIDED HISTORY: [facility] pain TECHNOLOGIST PROVIDED HISTORY: [facility] pain Decision Support Exception - unselect if [...] subcutaneous soft tissues are unremarkable in appearance. [employer] Phone: Jean Marie, pn Incoming Radiant Results From [employer] - 10/15/2020 1:48 AM EDT EXAMINATION: CT [...] PROVIDED HISTORY: abd pain TECHNOLOGIST PROVIDED HISTORY: [facility] pain Decision Support Exception - unselect if [...] Mild colonic diverticulosis without evidence of diverticulitis. [employer] Phone: [employer] Phone: HCG Qualitative, SerumOrdere d By: Donny Alysia on 10-15-2020 hCG Qual Negative NEGATIVE [employer] Phone: Comment on above: Specimens with hCG l evels near the threshold of the test (25 mIU/mL) may give a negative or indeterminate result. In such cases, another test should be performed with a new specimen in 48-72 hours. If early is suspected clinically in this setting, correlation with quantitative serum b-hCG level is suggested. [employer] has confirmed the use of plasma for this test. This has not been cleared or approved by the U.S. Food and Drug Administration. The FDA has determined that such clearance is not necessary. [employer] Phone: Hepatic Function PanelOrdere d By: Donny Hatfield on 10-15-2020 Albumin [Mass/Vol] 4.6 g/dL 3.5 - 5.2 g/dL [employer] Phone: Albumin/Globulin [Mass ratio] 1.6 {ratio} [employer] Phone: ALP (Bld) [Catalytic activity/Vol] 59 U/L 35 - 104 U/L [employer] Phone: ALT [Catalytic activity/Vol] 38 U/L High 5 - 33 U/L [employer] Phone: AST [Catalytic activity/Vol] 24 U/L <32 [employer] Phone: Bilirubin [Mass/Vol] 0.48 mg/dL 0.3 - 1 .2 mg/dL [employer] Phone: Bilirubin, Indirect CANNOT BE CALCULATED 0.00 - 1.00 mg/dL [employer] Phone: Bilirubin.indirect [Mass/Vol] mg/dL <0.31 mg/dL [employer] Phone: Free PSA/Total PSA [Mass fraction] 7.4 g/dL 6.4 - 8.3 g/dL [employer] Phone: Globulin NOT REPORTED 1.5 - 3.8 g/dL [employer] Phone: Interpretation and review of laboratory results Abnormal [employer] Phone: Laboratory - Chemistry and C hemistry - challengeOrdered By: Donny Hatfield on 10-15-2020 GFR/1.73 sq M.predicted MDRD (S/P/Bld) [Vol rate/Area] [employer] Phone: Comment on above: Average GFR for 20-2 9 years old: 116 mL/min/1.73sq m Chronic Kidney Disease: <60 mL/min/1.73sq m Kidney failure: <15 mL/min/1.73sq m eGFR calculated using average adult body mass. Additional eGFR calculator available at: http://www.Newsgrape/multiple_crcl_2011.htm Stage 1: Some kidney damage normal GFR Stage 2: Mild kidney damage GFR 60-89 Stage 3: Moderate kidney damage GFR 30-59 Stage 4: Severe kidney damage GFR 15-29 Stage 5: Severe kidney damage GFR <15 ESRD - chronic treatment by dialysis or transplant Lactic Acid, PlasmaOrdered B y: Donny Hatfield on 10-15-2020 Lactate [Moles/Vol] 1.1 mmol/L 0.5 - 2. 2 mmol/L [employer] Phone: Lactic Acid, Whole Blood NOT REPORTED 0.7 - 2.1 mmol/L [employer] Phone: [employer] Phone: LipaseOrdered By: Cuco on 10-15-2020 Lipase [Catalytic activity/Vol] 27 U/L 13 - 60 U/L [facility] Work Phone: MagnesiumOrdered By: Donny Hatfield on 10-15-2020 Magnesium [Mass/Vol] 1.8 mg/dL 1.6 - 2 .6 mg/dL [facility] Work Phone: [facility] Work Phone: Microscopic UrinalysisOrdere d By: Donny Hatfield on 10-15-2020 - [facility] Work Phone: Amorphous, UA NOT REPORTED None [facility] Work Phone: Bacteria, UA 1+ Abnormal None [facility] Work Phone: Casts UA NOT REPORTED /LPF [facility] Work Phone: Crystals, UA NOT REPORTED None /HPF [facility] Work Phone: Epithelial Cells UA 2 TO 5 [facility] Work Phone: Interpretation and review of laboratory results Abnormal [facility] Work Phone: Mucus, UA 1+ Abnormal None [facility] Work Phone: Other Observations UA NOT REPORTED NOT REQ. M [facility] Work Phone: RBC, UA 2 TO 5 [facility] Work Phone: Renal Epithelial, UA NOT REPORTED 0 /HPF [facility] Work Phone: Trichomonas, UA NOT REPORTED None [facility] Work Phone: WBC, UA 0 TO 2 [facility] Work Phone: Yeast, UA NOT REPORTED None [facility] Work Phone: [facility] Work Phone: No Panel InformationOrdered By: Donny Hatfield on 10-15-2020 [facility] Work Phone: Urinalysis Reflex to Culture Ordered By: Donny Hatfield on 10-15-2020 Bilirubin Urine Negative NEGATIVE [facility] Work Phone: Color, UA YELLOW YELLOW [facility] Work Phone: Glucose, Ur Negative NEGATIVE [facility] Work Phone: Interpretation and review of laboratory results Abnormal [facility] Work Phone: Ketones Ql (U) Negative NEGATIVE [facility] Work Phone: Leukocyte esterase Test strip Ql (U) Negative NEGATIVE [facility] Work Phone: Nitrite, Urine Negative NEGATIVE [facility] Work Phone: pH, UA 5.0 [facility] Work Phone: Protein, UA Negative NEGATIVE [facility] Work Phone: Specific [place], UA 1.010 [facility] Work Phone: Turbidity UA CLEAR CLEAR [facility] Work Phone: Urinalysis Comments NOT REPORTED [facility] Work Phone: Urine Hgb 2+ Abnormal NEGATIVE [facility] Work Phone: Urobilinogen, Urine Normal Normal [facility] Work Phone: [facility] Work Phone: Comp Metabolic Profon 2020 (cont.) Normal [facility] Comment on above: Result Comment: Aver age GFR for 20-29 years old: 116 mL/min/1.73sq m Chronic Kidney Disease: <60 mL/min/1.73sq m Kidney failure: <15 mL/min/1.73sq m eGFR calculated using average adult body mass. Additional eGFR calculator available at: http://www.Aginova.Luxoft/multiple_crcl_2011.htm Performed By: #### L IPRF, CDP, CP, TSHX #### [employer] [address] [place] [address] Compliance Quality Performance Analyst: Chato Aguirre MD Albumin [Mass/Vol] 4.3 g/dL Normal 3.5-5.2 [facility] Comment on above: Performed By: #### L IPRF, CDP, CP, TSHX #### [facility] [address] [place] [address] Compliance Quality Performance Analyst: Chato Aguirre MD Albumin/Glob Ratio 1.3 Normal 1.0-2.5 [facility] Comment on above: Performed By: #### L IPRF, CDP, CP, TSHX #### [facility] [address] [place] [address] Compliance Quality Performance Analyst: Chato Aguirre MD Alkaline Phos 49 U/L Normal 35-104 [facility] Comment on above: Performed By: #### L IPRF, CDP, CP, TSHX #### [facility] [address] [place] [address] Compliance Quality Performance Analyst: Chato Aguirre MD ALT [Catalytic activity/Vol] 36 U/L High 5-33 [facility] Comment on above: Performed By: #### L IPRF, CDP, CP, TSHX #### [facility] [address] [place] [address] Compliance Quality Performance Analyst: Chato Aguirre MD Anion gap [Moles/Vol] 11 mmol/L Normal 9-17 [facility] Comment on above: Performed By: #### L IPRF, CDP, CP, TSHX #### [facility] [address] [place] [address] Compliance Quality Performance Analyst: Chato Aguirre MD AST [Catalytic activity/Vol] 27 U/L Normal <32 [facility] Comment on above: Performed By: #### L IPRF, CDP, CP, TSHX #### [facility] [address] [place] [address] Compliance Quality Performance Analyst: Chato Aguirre MD Bilirubin [Mass/Vol] 0.34 mg/dL Normal 0.3-1.2 [facility] Comment on above: Performed By: #### L IPRF, CDP, CP, TSHX #### [facility] [address] [place] [address] Compliance Quality Performance Analyst: Chato Aguirre MD Calcium [Mass/Vol] 9.5 mg/dL Normal 8.6-10.4 [facility] Comment on above: Performed By: #### L IPRF, CDP, CP, TSHX #### [facility] [address] [place] [address] Compliance Quality Performance Analyst: Chato Aguirre MD Chloride [Moles/Vol] 102 mmol/L Normal 98-107 [facility] Comment on above: Performed By: #### L IPRF, CDP, CP, TSHX #### [facility] [address] [place] [address] Compliance Quality Performance Analyst: Chato Aguirre MD CO2 [Moles/Vol] 22 mmol/L Normal 20-31 [facility] Comment on above: Performed By: #### L IPRF, CDP, CP, TSHX #### [facility] [address] [place] [address] Compliance Quality Performance Analyst: Chato Aguirre MD Creatinine [Mass/Vol] 0.46 mg/dL Low 0.50-0.90 [facility] Comment on above: Performed By: #### L IPRF, CDP, CP, TSHX #### [facility] [address] [place] [address] Compliance Quality Performance Analyst: Chato Aguirre MD GFR, Amer >60 Normal >60 [facility] Comment on above: Performed By: #### L IPRF, CDP, CP, TSHX #### [facility] [address] [place] [address] Compliance Quality Performance Analyst: Chato Aguirre MD GFR,non Amer >60 Normal >60 [facility] Comment on above: Performed By: #### L IPRF, CDP, CP, TSHX #### [facility] [address] [place] [address] Compliance Quality Performance Analyst: Chato Aguirre MD Glucose [Mass/Vol] 92 mg/dL Normal 70-99 [facility] Comment on above: Performed By: #### L IPRF, CDP, CP, TSHX #### [address] [address] Compliance Quality Performance Analyst: Chato Aguirre MD Potassium [Moles/Vol] 4.2 mmol/L Normal 3.7-5.3 [facility] Comment on above: Performed By: #### L IPRF, CDP, CP, TSHX #### [address] [address] Compliance Quality Performance Analyst: Chato Aguirre MD Protein [Mass/Vol] 7.5 g/dL Normal 6.4-8.3 [facility] Comment on above: Performed By: #### L IPRF, CDP, CP, TSHX #### [address] [address] Compliance Quality Performance Analyst: Chato Aguirre MD Sodium [Moles/Vol] 135 mmol/L Normal 135-144 [facility] Comment on above: Performed By: #### L IPRF, CDP, CP, TSHX #### [address] [address] Compliance Quality Performance Analyst: Chato Aguirre MD Urea nitrogen [Mass/Vol] 11 mg/dL Normal 6-20 [facility] Comment on above: Performed By: #### L IPRF, CDP, CP, TSHX #### [facility] [address] [place] [address] Compliance Quality Performance Analyst: Chato Aguirre MD Lipid Prof, Fastingon 2020 Cholesterol [Mass/Vol] 186 mg/dL Normal <200 [facility] Comment on above: Result Comment: Cholesterol Guidelines: <200 Desirable 200-240 Borderline >240 Undesirable Performed By: #### L IPRF, CDP, CP, TSHX #### [employer] [address] [place] [address] Compliance Quality Performance Analyst: Chato Aguirre MD Cholesterol in HDL [Mass/Vol] 49 mg/dL Normal >40 [facility] Comment on above: Result Comment: HDL Guidelines: <40 Undesirable 40-59 Borderline >59 Desirable Performed By: #### L IPRF, CDP, CP, TSHX #### [employer] [address] [place] [address] Compliance Quality Performance Analyst: Chato Aguirre MD Cholesterol in LDL [Mass/Vol] 102 mg/dL Normal 0-130 [facility] Comment on above: Result Comment: LDL Guidelines: <100 Desirable 100-129 Near to/above Desirable 130-159 Borderline >159 Undesirable Direct (measured) LDL and calculated LDL are not interchangeable tests. Performed By: #### L IPRF, CDP, CP, TSHX #### [employer] [address] [place] [address] Compliance Quality Performance Analyst: Chato Aguirre MD Cholesterol.total/Chol esterol in HDL [Mass ratio] 3.8 {ratio} Normal <5 [facility] Comment on above: Performed By: #### L IPRF, CDP, CP, TSHX #### [employer] [address] [place] [address] Compliance Quality Performance Analyst: Chato Aguirre MD Triglyceride,Fasting 173 mg/dL High <150 [facility] Comment on above: Result Comment: Triglyceride Guidelines: <150 Desirable 150-199 Borderline 200-499 High >499 Very high Based on AHA Guidelines for fasting triglyceride, February 2012. Performed By: #### L IPRF, CDP, CP, TSHX #### [employer] [address] [place] [address] Compliance Quality Performance Analyst: Chato Aguirre MD TSH w/reflex to FT4on 2020 TSH Qn 3.38 m[IU]/L Normal 0.30-5.00 [facility] Comment on above: Performed By: #### L IPRF, CDP, CP, TSHX #### [employer] [address] [place] [address] Compliance Quality Performance Analyst: Chato Aguirre MD CBC Auto DifferentialOrdered By: Miguel Holley on 09-23-2020 [employer] # 0.14 [employer] [facility] Work Phone: Absolute Immature Granulocyte <0.03 [employer] Work Phone: Absolute Lymph # 2.71 [facility] Work Phone: [employer] [place] # 0.48 [employer] Work Phone: Basophils (Bld) [#/Vol] 0.05 10*3/uL [employer] Work Phone: Basophils/100 WBC (Bld) 1 % 0 - 2 % [employer] Phone: Differential Type NOT REPORTED [employer] Phone: Eosinophils/100 WBC (Bld) 2 % 1 - 4 % [employer] Phone: Hematocrit (Bld) [Volume fraction] 42.9 % 36.3 - 47.1 % [employer] Phone: Hemoglobin.gastrointes tinal spec 1 Ql (Stl) 13.5 g/dL 11.9 - 15.1 g/dL [employer] Phone: Immature granulocytes/100 WBC (Bld) 0 % 0 [employer] Phone: Lymphocytes/100 WBC (Bld) 30 % 24 - 43 % [employer] Phone: MCH (RBC) [Entitic mass] 27.6 pg 25.2 - 33.5 pg [employer] Phone: MCHC (RBC) [Mass/Vol] 31.5 g/dL 28.4 - 34.8 g/dL [employer] Phone: MCV (RBC) [Entitic vol] 87.6 fL 82.6 - 102.9 fL [employer] Phone: Monocytes/100 WBC (Bld) 5 % 3 - 12 % [employer] Phone: NRBC Automated 0.0 0.0 per 100 WBC [employer] Phone: Platelet distribution width (Bld) [Ratio] 12.4 % 11.8 - 14.4 % [employer] Phone: Platelet Estimate NOT REPORTED [employer] Phone: Platelet mean volume (Bld) [Entitic vol] 11.6 fL 8.1 - 13.5 fL [employer] Phone: Platelets (Bld) [#/Vol] 246 10*3/uL [employer] Phone: RBC (Bld) [#/Vol] 4.90 10*6/uL 3.95 - 5.1 1 m/uL [employer] Phone: RBC (Bld) [#/Vol] NOT REPORTED [employer] Phone: Segmented neutrophils/100 WBC (Bld) 62 % 36 - 65 % [employer] Phone: Segs Absolute 5.79 [employer] Work Phone: WBC (Bld) [#/Vol] 9.2 10*3/uL [employer] Work Phone: WBC (Bld) [#/Vol] NOT REPORTED [employer] Work Phone: CBC with Diffon 09-23-2020 Abs. Basophil 0.05 k/uL Normal 0.00-0.20 [facility] Comment on above: Performed By: #### L IPRF, CDP, CP, TSHX #### [place] [address] Compliance Quality Performance Analyst: Chato Aguirre MD Abs.Imm.Granulocyte <0.03 Normal 0.00-0.30 [facility] Comment on above: Performed By: #### L IPRF, CDP, CP, TSHX #### [place] [address] Compliance Quality Performance Analyst: Chato Aguirre MD Abs.Neutrophil (Seg) 5.79 k/uL Normal 1.50-8.10 [facility] Comment on above: Performed By: #### L IPRF, CDP, CP, TSHX #### [place] [address] Compliance Quality Performance Analyst: Chato Aguirre MD Basophils/100 WBC (Bld) 1 % Normal 0-2 [facility] Comment on above: Performed By: #### L IPRF, CDP, CP, TSHX #### [place] [address] Compliance Quality Performance Analyst: Chato Aguirre MD Eosinophils (Bld) [#/Vol] 0.14 10*3/uL Normal 0.00-0.44 [facility] Comment on above: Performed By: #### L IPRF, CDP, CP, TSHX #### [place] [address] Compliance Quality Performance Analyst: Chato Aguirre MD Eosinophils/100 WBC (Bld) 2 % Normal 1-4 [facility] Comment on above: Performed By: #### L IPRF, CDP, CP, TSHX #### [place] [address] Compliance Quality Performance Analyst: Chato Aguirre MD Erythrocyte distribution width (RBC) [Ratio] 12.4 % Normal 11.8-14.4 [facility] Comment on above: Performed By: #### L IPRF, CDP, CP, TSHX #### [address] [address] Compliance Quality Performance Analyst: Chato Aguirre MD Hematocrit (Bld) [Volume fraction] 42.9 % Normal 36.3-47.1 [facility] Comment on above: Performed By: #### L IPRF, CDP, CP, TSHX #### [address] [address] Compliance Quality Performance Analyst: Chato Aguirre MD Hemoglobin (Bld) [Mass/Vol] 13.5 g/dL Normal 11.9-15.1 [facility] Comment on above: Performed By: #### L IPRF, CDP, CP, TSHX #### [address] [address] Compliance Quality Performance Analyst: Chato Aguirre MD Immature granulocytes/100 WBC (Bld) 0 % Normal 0 [facility] Comment on above: Performed By: #### L IPRF, CDP, CP, TSHX #### [address] [address] Compliance Quality Performance Analyst: Chato Aguirre MD Lymphocytes (Bld) [#/Vol] 2.71 10*3/uL Normal 1.10-3.70 [facility] Comment on above: Performed By: #### L IPRF, CDP, CP, TSHX #### [address] [address] Compliance Quality Performance Analyst: Chato Aguirre MD Lymphocytes/100 WBC (Bld) 30 % Normal 24-43 [facility] Comment on above: Performed By: #### L IPRF, CDP, CP, TSHX #### [address] [address] Compliance Quality Performance Analyst: Chato Aguirre MD MCH (RBC) [Entitic mass] 27.6 pg Normal 25.2-33.5 [facility] Comment on above: Performed By: #### L IPRF, CDP, CP, TSHX #### [address] [address] Compliance Quality Performance Analyst: Chato Aguirre MD MCHC (RBC) [Mass/Vol] 31.5 g/dL Normal 28.4-34.8 [facility] Comment on above: Performed By: #### L IPRF, CDP, CP, TSHX #### [address] [address] Compliance Quality Performance Analyst: Chato Aguirre MD MCV (RBC) [Entitic vol] 87.6 fL Normal 82.6-102.9 [facility] Comment on above: Performed By: #### L IPRF, CDP, CP, TSHX #### [place] [address] Compliance Quality Performance Analyst: Chato Aguirre MD Monocytes (Bld) [#/Vol] 0.48 10*3/uL Normal 0.10-1.20 [facility] Comment on above: Performed By: #### L IPRF, CDP, CP, TSHX #### [place] [address] Compliance Quality Performance Analyst: Chato Aguirre MD Monocytes/100 WBC (Bld) 5 % Normal 3-12 [facility] Comment on above: Performed By: #### L IPRF, CDP, CP, TSHX #### [place] [address] Compliance Quality Performance Analyst: Chato Aguirre MD Neutrophil (Seg) 62 % Normal 36-65 [facility] Comment on above: Performed By: #### L IPRF, CDP, CP, TSHX #### [place] [address] Compliance Quality Performance Analyst: Chato Aguirre MD NRBC Automated 0.0 per 100 WBC Normal 0.0 [facility] Comment on above: Performed By: #### L IPRF, CDP, CP, TSHX #### [address] [address] Compliance Quality Performance Analyst: Chato Aguirre MD Platelet mean volume (Bld) [Entitic vol] 11.6 fL Normal 8.1-13.5 [facility] Comment on above: Performed By: #### L IPRF, CDP, CP, TSHX #### [address] [address] Compliance Quality Performance Analyst: Chato Aguirre MD Platelets (Bld) [#/Vol] 246 10*3/uL Normal 138-453 [facility] Comment on above: Performed By: #### L IPRF, CDP, CP, TSHX #### [address] [address] Compliance Quality Performance Analyst: Chato Aguirre MD RBC (Bld) [#/Vol] 4.90 10*6/uL Normal 3.95-5.11 [facility] Comment on above: Performed By: #### L IPRF, CDP, CP, TSHX #### [address] [address] Compliance Quality Performance Analyst: Chato Aguirre MD WBC (Bld) [#/Vol] 9.2 10*3/uL Normal 3.5-11.3 [facility] Comment on above: Performed By: #### L IPRF, CDP, CP, TSHX #### [address] [address] Compliance Quality Performance Analyst: Chato Aguirre MD Auto Diff Performed NOT REPORTED Normal [facility] Comment on above: Performed By: #### L IPRF, CDP, CP, TSHX #### [address] [address] Compliance Quality Performance Analyst: Chato Aguirre MD Platelet Estimate NOT REPORTED Normal [facility] Comment on above: Performed By: #### L IPRF, CDP, CP, TSHX #### [facility] [address] [place] [address] Compliance Quality Performance Analyst: Chato Aguirre MD RBC morphology finding Nom (Bld) NOT REPORTED Normal [facility] Comment on above: Performed By: #### L IPRF, CDP, CP, TSHX #### [facility] [address] [place] [address] Compliance Quality Performance Analyst: Chato Aguirre MD WBC Morphology NOT REPORTED Normal [facility] Comment on above: Performed By: #### L IPRF, CDP, CP, TSHX #### [facility] [place] [id number] Compliance Quality Performance Analyst: Chato Aguirre MD Comp Metabolic Profon 2020 BUN/CRE Ratio NOT REPORTED Normal 02-17 [facility] Comment on above: Performed By: #### L IPRF, CDP, CP, TSHX #### [facility] [address] [place] [address] Compliance Quality Performance Analyst: Chato Aguirre MD Staging: NOT REPORTED Normal [facility] Comment on above: Performed By: #### L IPRF, CDP, CP, TSHX #### [facility] [address] [place] [address] Compliance Quality Performance Analyst: Chato Aguirre MD Comprehensive Metabolic Pane lOrdered By: Miguel Holley on 09-23-2020 Albumin [Mass/Vol] 4.3 g/dL 3.5 - 5.2 g/dL [employer] Phone: Albumin/Globulin [Mass ratio] 1.3 {ratio} [employer] Phone: ALP (Bld) [Catalytic activity/Vol] 49 U/L 35 - 104 U/L [employer] Phone: ALT [Catalytic activity/Vol] 36 U/L High 5 - 33 U/L [employer] Phone: Anion gap [Moles/Vol] 11 mmol/L 9 - 17 mmol/L [employer] Phone: AST [Catalytic activity/Vol] 27 U/L <32 [employer] Phone: Bilirubin [Mass/Vol] 0.34 mg/dL 0.3 - 1 .2 mg/dL [employer] Phone: Calcium [Mass/Vol] 9.5 mg/dL 8.6 - 10. 4 mg/dL [employer] Phone: Chloride [Moles/Vol] 102 mmol/L 98 - 10 7 mmol/L [employer] Phone: CO2 [Moles/Vol] 22 mmol/L 20 - 31 mmol/L [employer] Phone: Creatinine [Mass/Vol] 0.46 mg/dL Low 0.50 - 0.90 mg/dL [employer] Phone: Free PSA/Total PSA [Mass fraction] 7.5 g/dL 6.4 - 8.3 g/dL [employer] Phone: GFR >60 >60 mL/min [employer] Phone: GFR Non- >60 >60 mL/min [employer] Phone: GFR/1.73 sq M.predicted MDRD (S/P/Bld) [Vol rate/Area] [employer] Phone: Comment on above: Average GFR for 20-2 9 years old: 116 mL/min/1.73sq m Chronic Kidney Disease: <60 mL/min/1.73sq m Kidney failure: <15 mL/min/1.73sq m eGFR calculated using average adult body mass. Additional eGFR calculator available at: http://www.Aginova.Luxoft/multiple_crcl_2012.htm GFR/1.73 sq M.predicted MDRD (S/P/Bld) [Vol rate/Area] NOT REPORTED [employer] Phone: Glucose [Mass/Vol] 92 mg/dL 70 - 99 mg/dL [employer] Phone: Potassium [Moles/Vol] 4.2 mmol/L 3.7 - 5.3 mmol/L [facility] Phone: Sodium [Moles/Vol] 135 mmol/L 135 - 144 mmol/L [facility] Phone: Urea nitrogen (BldV) [Mass/Vol] 11 mg/dL 6 - 20 mg/dL [facility] Phone: Urea nitrogen/Creatinine (Bld) [Mass ratio] NOT REPORTED [employer] Phone: Laboratory - Chemistry and C hemistry - challengeOrdered By: Miguel Holley on 09-23-2020 Albumin [Mass/Vol] 4.3 g/dL (3.5-5.2 ) [facility] Work Phone: Comment on above: Note: Responsible Ob server software engineer: CEEV AUTOFILE ([id number]) ALT [Catalytic activity/Vol] 36 U/L High (5-33 ) [facility] Work Phone: Comment on above: Note: Responsible Ob server software engineer: CEEV AUTOFILE ([id number]) Anion gap [Moles/Vol] 11 mmol/L (9-17 ) [facility] Work Phone: Comment on above: Note: Responsible Ob server software engineer: CEEV AUTOFILE ([id number]) AST [Catalytic activity/Vol] 27 U/L (<32 ) [facility] Work Phone: Comment on above: Note: Responsible Ob server software engineer: CEEV AUTOFILE ([id number]) Bilirubin [Mass/Vol] 0.34 mg/dL (0.3-1.2 ) [facility] Work Phone: Comment on above: Note: Responsible Ob server software engineer: CEEV AUTOFILE ([id number]) Calcium [Mass/Vol] 9.5 mg/dL (8.6-10.4 ) [facility] Work Phone: Comment on above: Note: Responsible Ob server software engineer: CEEV AUTOFILE ([id number]) Chloride [Moles/Vol] 102 mmol/L (98-107 ) [facility] Work Phone: Comment on above: Note: Responsible Ob server software engineer: CEEV AUTOFILE ([id number]) Cholesterol [Mass/Vol] 186 mg/dL (<200 ) [facility] Work Phone: Comment on above: Note: Cholesterol Gu idelines:<200 [id number] Borderline>240 UndesirableResponsible Observer: CEEV AUTOFILE ([id number]) Cholesterol.total/Chol esterol in HDL [Mass ratio] 3.8 {ratio} (<5 ) [facility] Work Phone: Comment on above: Note: Responsible Ob server software engineer: CEEV AUTOFILE ([id number]) CO2 [Moles/Vol] 22 mmol/L (20-31 ) [facility] Work Phone: Comment on above: Note: Responsible Ob server software engineer: CEEV AUTOFILE ([id number]) Creatinine [Mass/Vol] 0.46 mg/dL Low (0.50- 0.90 ) [facility] Work Phone: Comment on above: Note: Responsible Ob server software engineer: CEEV AUTOFILE ([id number]) Glucose [Mass/Vol] 92 mg/dL (70-99 ) [facility] Work Phone: Comment on above: Note: Responsible Ob server software engineer: CEEV AUTOFILE ([id number]) Magnesium [Mass/Vol] 49 mg/dL (>40 ) [facility] Work Phone: Comment on above: Note: HDL Guidelines :<40 [id number] Borderline>59 DesirableResponsible Observer: CEEV AUTOFILE ([id number]) Magnesium [Mass/Vol] 102 mg/dL (0-130 ) [facility] Work Phone: Comment on above: Note: LDL Guidelines :<100 [id number] Near to/above [id number] Borderline>159 UndesirableDirect (measured) LDL and calculated LDL are not interchangeable tests.Responsible Observer: CEEV AUTOFILE ([id number]) Magnesium [Mass/Vol] 173 mg/dL High (<150 ) [facility] Work Phone: Comment on above: Note: Triglyceride G uidelines:<150 [id number] High>499 Very highBased on AHA Guidelines for fasting triglyceride, February 2012.Responsible Observer: CEEV AUTOFILE ([id number]) Potassium [Moles/Vol] 4.2 mmol/L (3.7-5.3 ) [facility] Work Phone: Comment on above: Note: Responsible Ob server software engineer: CEEV AUTOFILE ([id number]) Protein [Mass/Vol] 7.5 g/dL (6.4-8.3 ) [facility] Work Phone: Comment on above: Note: Responsible Ob server software engineer: CEEV AUTOFILE ([id number]) Sodium [Moles/Vol] 135 mmol/L (135-144 ) [facility] Work Phone: Comment on above: Note: Responsible Ob server software engineer: CEEV AUTOFILE ([id number]) Urea nitrogen [Mass/Vol] 11 mg/dL (6-20 ) [facility] Work Phone: Comment on above: Note: Responsible Ob server software engineer: CEEV AUTOFILE ([id number]) Laboratory - Hematology and Cell countsOrdered By: Miguel Holley on 09-23-2020 Basophils/100 WBC (Bld) 1 % (0-2 ) [facility] Work Phone: Comment on above: Note: Responsible Ob server software engineer: XNV AUTOFILE ([id number]) Eosinophils (Bld) [#/Vol] 0.14 10*3/uL (0.00-0.44 ) [facility] Work Phone: Comment on above: Note: Responsible Ob server software engineer: XNV AUTOFILE ([id number]) Eosinophils/100 WBC (Bld) 2 % (1-4 ) [facility] Work Phone: Comment on above: Note: Responsible Ob server software engineer: XNV AUTOFILE ([id number]) Erythrocyte distribution width (RBC) [Ratio] 12.4 % (11.8-14.4 ) [facility] Work Phone: Comment on above: Note: Responsible Ob server software engineer: XNV AUTOFILE ([id number]) Hematocrit (Bld) [Volume fraction] 42.9 % (36.3-47.1 ) [facility] Work Phone: Comment on above: Note: Responsible Ob server software engineer: XNV AUTOFILE ([id number]) Hemoglobin (Bld) [Mass/Vol] 13.5 g/dL (11.9-15.1 ) [facility] Work Phone: Comment on above: Note: Responsible Ob server software engineer: XNV AUTOFILE ([id number]) Immature granulocytes/100 WBC (Bld) 0 % (0 ) [facility] Work Phone: Comment on above: Note: Responsible Ob server software engineer: XNV AUTOFILE ([id number]) Lymphocytes (Bld) [#/Vol] 2.71 10*3/uL (1.10-3.70 ) [facility] Work Phone: Comment on above: Note: Responsible Ob server software engineer: XNV AUTOFILE ([id number]) Lymphocytes/100 WBC (Bld) 30 % (24-43 ) [facility] Work Phone: Comment on above: Note: Responsible Ob server software engineer: XNV AUTOFILE ([id number]) MCH (RBC) [Entitic mass] 27.6 pg (25.2-33.5 ) [facility] Work Phone: Comment on above: Note: Responsible Ob server software engineer: XNV AUTOFILE ([id number]) MCHC (RBC) [Mass/Vol] 31.5 g/dL (28.4- 34.8 ) [facility] Work Phone: Comment on above: Note: Responsible Ob server software engineer: XNV AUTOFILE ([id number]) MCV (RBC) [Entitic vol] 87.6 fL (82.6-102.9 ) [facility] Work Phone: Comment on above: Note: Responsible Ob server software engineer: XNV AUTOFILE ([id number]) Monocytes (Bld) [#/Vol] 0.48 10*3/uL (0.10-1.20 ) [facility] Work Phone: Comment on above: Note: Responsible Ob server software engineer: XNV AUTOFILE ([id number]) Monocytes/100 WBC (Bld) 5 % (3-12 ) [facility] Work Phone: Comment on above: Note: Responsible Ob server software engineer: XNV AUTOFILE ([id number]) Platelet mean volume (Bld) [Entitic vol] 11.6 fL (8.1-13.5 ) [facility] Work Phone: Comment on above: Note: Responsible Ob server software engineer: XNV AUTOFILE ([id number]) Platelets (Bld) [#/Vol] 246 10*3/uL (138-453 ) [facility] Work Phone: Comment on above: Note: Responsible Ob server software engineer: XNV AUTOFILE ([id number]) RBC (Bld) [#/Vol] 4.90 10*6/uL (3.95-5.11 ) [facility] Work Phone: Comment on above: Note: Responsible Ob server software engineer: XNV AUTOFILE ([id number]) RBC morphology finding Nom (Bld) NOT REPORTED [facility] Work Phone: Segmented neutrophils/100 WBC (Bld) 62 % (36-65 ) [facility] Work Phone: Comment on above: Note: Responsible Ob server software engineer: XNV AUTOFILE ([id number]) WBC (Bld) [#/Vol] 9.2 10*3/uL (3.5-11.3 ) [facility] Work Phone: Comment on above: Note: Responsible Ob server software engineer: XNV AUTOFILE ([id number]) Lipid Prof, Fastingon 2020 Cholesterol,VLDL NOT REPORTED Normal 1-30 [facility] Comment on above: Performed By: #### L IPRF, CDP, CP, TSHX #### [employer] [address] [place] [address] Compliance Quality Performance Analyst: Chato Aguirre MD Lipid, FastingOrdered By: Zandra Holley on 09-23-2020 Cholesterol [Mass/Vol] 186 mg/dL <200 [facility] Phone: Comment on above: Cholesterol Guidelines: <200 Desirable 200-240 Borderline >240 Undesirable Cholesterol in HDL [Mass/Vol] 49 mg/dL >40 [employer] Phone: Comment on above: HDL Guidelines: <40 Undesirable 40-59 Borderline >59 Desirable Cholesterol in LDL [Mass/Vol] 102 mg/dL 0 - 130 mg/dL [employer] Phone: Comment on above: LDL Guidelines: <100 Desirable 100-129 Near to/above Desirable 130-159 Borderline >159 Undesirable Direct (measured) LDL and calculated LDL are not interchangeable tests. Cholesterol in VLDL [Mass/Vol] NOT REPORTED High 1 - 30 mg/dL [employer] Phone: Cholesterol.total/Chol esterol in HDL [Mass ratio] 3.8 {ratio} <5 [employer] Phone: Triglyceride, Fasting 173 mg/dL High <150 [facility] [employer] Phone: Comment on above: Triglyceride Guidelines: <150 Desirable 150-199 Borderline 200-499 High >499 Very high Based on AHA Guidelines for fasting triglyceride, February 2012. No Panel InformationOrdered By: Miguel Holley on 09-23-2020 Interpretation and review of laboratory results Abnormal [employer] Phone: (cont.) See Note [facility] Work Phone: Comment on above: Note: Average GFR fo r 20-29 years old:116 mL/min/1.73sq mChronic Kidney Disease:<60 mL/min/1.73sq mKidney failure:<15 mL/min/1.73sq meGFR calculated using average adult body mass. Additional eGFR calculatoravailable at:http://www.Newsgrape/multiple_crcl_2012.htmResponsible Observer: CEEV AUTOFILE ([id number]) Abs. Basophil 0.05 k/uL (0.00-0.20 ) [facility] Work Phone: Comment on above: Note: Responsible Ob server software engineer: XNV AUTOFILE ([id number]) Abs.Imm.Granulocyte <0.03 k/uL (0.00-0. 30 ) [facility] Work Phone: Comment on above: Note: Responsible Ob server software engineer: XNV AUTOFILE ([id number]) Abs.Neutrophil (Seg) 5.79 k/uL (1.50-8 .10 ) [facility] Work Phone: Comment on above: Note: Responsible Ob server software engineer: XNV AUTOFILE ([id number]) Albumin/Glob Ratio 1.3 (1.0-2.5 ) [facility] Work Phone: Comment on above: Note: Responsible Ob server software engineer: CEEV AUTOFILE ([id number]) Alkaline Phos 49 U/L (35-104 ) [facility] Work Phone: Comment on above: Note: Responsible Ob server software engineer: CEEV AUTOFILE ([id number]) Auto Diff Performed NOT REPORTED [facility] Work Phone: BUN/CRE Ratio NOT REPORTED (9-20 ) [facility] Work Phone: Cholesterol,VLDL NOT REPORTED mg/dL (1-30 ) [facility] Work Phone: GFR, Amer >60 mL/min (>60 ) [facility] Work Phone: Comment on above: Note: Responsible Ob server software engineer: CEEV AUTOFILE ([id number]) GFR,non Amer >60 mL/min (>60 ) [facility] Work Phone: Comment on above: Note: Responsible Ob server software engineer: CEEV AUTOFILE ([id number]) NRBC Automated 0.0 per_100_WBC (0.0 ) [facility] Work Phone: Comment on above: Note: Responsible Ob server software engineer: XNV AUTOFILE ([id number]) Platelet Estimate NOT REPORTED [facility] Work Phone: Reported Physicians See Note [facility] Work Phone: Comment on above: Note: Reported Physi cians:Ordering: Kyler AimeeAttending: Cotton, AimeeReferring: Cotton, Miguel Staging: NOT REPORTED [facility] Work Phone: Thyroid Stim. Horm. 3.38 mIU/L (0.30-5. 00 ) [facility] Work Phone: Comment on above: Note: Responsible Ob server software engineer: CEEV AUTOFILE ([id number]) WBC Morphology NOT REPORTED [facility] Work Phone: TSH with ReflexOrdered By: Kamryn Holley on 09-23-2020 TSH Qn 3.38 m[IU]/L [facility] Work Phone: APTTon 04-08-2020 aPTT Coag (Bld) [Time] 25.2 s [place], [place] Comment on above: IV Heparin Therapy Range: 62.0-94.0 Brain Natriuretic Peptideon 04-08-2020 Natriuretic peptide B (Bld) [Mass/Vol] pg/mL <300 pg/mL [place] Comment on above: Pro-BNP results ayse ot be compared to BNP results. Natriuretic peptide B (Bld) [Mass/Vol] Pro-BNP Reference Range: [place] Comment on above: Rule Out: <300 [place] Zone: Age <50 300-450 Age 50-75 300-900 Age >75 300-1800 Usually represents mild to moderate HF but other cardiopulmonary causes cannot be ruled out. Rule In: Age <50 >450 Age 50-75 >900 Age >75 >1800 CBCon 04-08-2020 Erythrocyte distribution width (RBC) [Ratio] 11.9 % 11.8 - 14.4 % [place] Hematocrit (Bld) [Volume fraction] 37.9 % 36.3 - 47.1 % [place] Hemoglobin (Bld) [Mass/Vol] 12.5 g/dL 11.9 - 15.1 g/dL [place] MCH (RBC) [Entitic mass] 27.8 pg 25.2 - 33.5 pg [place] MCHC (RBC) [Mass/Vol] 33.0 g/dL 28.4 - 34.8 g/dL [place] MCV (RBC) [Entitic vol] 84.2 fL 82.6 - 102.9 fL [place] Platelet mean volume (Bld) [Entitic vol] 10.9 fL 8.1 - 13.5 fL [place] Platelets (Bld) [#/Vol] 184 10*3/uL [place] RBC (Bld) [#/Vol] 4.50 10*6/uL 3.95 - 5.1 1 m/uL [place] WBC (Bld) [#/Vol] 7.8 10*3/uL [place] WBC (Bld) [#/Vol] 0.0 10*3/uL 0.0 per 10 0 WBC [place] COVID-19on 04-08-2020 Interpretation and review of laboratory results Abnormal [place] SARS-CoV-2, Rapid DETECTED Abnormal Not Detected [place] Comment on above: Rapid NAAT: The [...] this assay. Fact sheet for Healthcare Providers: https://www.fda.gov/media/676030/download Fact sheet for Patients: https://www.fda.gov/media/435876/download Methodology: Isothermal Nucleic Acid Amplification Results reported to the appropriate Health Department Source .NASOPHARYNGEAL SWAB [place], [place] CT CHEST PULMONARY EMBOLISM W CONTRASTon 04-08-2020 Unremarkable appeara nce of the chest with no evidence of pulmonary embolism and clear lungs. Incidentally noted hepatic fatty infiltration. [place] EXAMINATION: CTA OF THE CHEST 04/08/2020 [...] No significant osseous or soft tissue abnormality. [place] Jean Marie, Mhpn Incoming Radiant Results From [employer] - 04/08/2020 4:12 PM EST EXAMINATION: CTA [...] clear lungs. Incidentally noted hepatic fatty infiltration. [place] Comprehensive Metabolic Pane fermin 04-08-2020 Albumin [Mass/Vol] 4.1 g/dL 3.5 - 5.2 g/dL [place] Albumin/Globulin [Mass ratio] 1.4 {ratio} [place] ALP [Catalytic activity/Vol] 62 U/L 35 - 104 U/L [place] ALT [Catalytic activity/Vol] 19 U/L 5 - 33 U/L [place] Anion gap [Moles/Vol] 10 mmol/L 9 - 17 mmol/L [place] AST [Catalytic activity/Vol] 20 U/L <32 [place] Bilirubin Ql (U) 0.48 mg/dL 0.3 - 1.2 mg/dL [place] Bun/Cre Ratio 23 High [place] Calcium [Mass/Vol] 8.9 mg/dL 8.6 - 10. 4 mg/dL [place] Chloride [Moles/Vol] 102 mmol/L 98 - 10 7 mmol/L [place] CO2 [Moles/Vol] 23 mmol/L 20 - 31 mmol/L [place] Creatinine [Mass/Vol] 0.47 mg/dL Low 0.5 - 0.9 mg/dL [place] GFR >60 >60 mL/min [place] GFR Non- >60 >60 mL/min [place] Glucose [Mass/Vol] 88 mg/dL 70 - 99 mg/dL [place] Interpretation and review of laboratory results Abnormal [place] Potassium [Moles/Vol] 3.7 mmol/L 3.7 - 5.3 mmol/L [place] Protein [Mass/Vol] 7.1 g/dL 6.4 - 8.3 g/dL [place] Sodium [Moles/Vol] 135 mmol/L 135 - 144 mmol/L [place] Urea nitrogen [Mass/Vol] 11 mg/dL 6 - 20 mg/dL [place] Metabolic Panelon 04-08-2020 GFR/1.73 sq M predicted among non-blacks MDRD (S/P/Bld) [Vol rate/Area] [place] Comment on above: Stage 1: Some [...] body mass. Additional eGFR calculator available at: http://www.Newsgrape/multiple_crcl_2012.htm Otheron 04-08-2020 SARS-CoV-2 [place], [place] , Urineon 0 Beta HCG ( test) Ql (U) Negative NEGATIVE [place] Comment on above: Specimens with hCG l evels near the threshold of the test (25 mIU/mL) may give a negative or indeterminate result. In such cases, another test should be performed with a new specimen in 48-72 hours. If early is suspected clinically in this setting, correlation with quantitative serum b-hCG level is suggested. [employer] has confirmed the use of plasma for this test. This has not been cleared or approved by the U.S. Food and Drug Administration. The FDA has determined that such clearance is not necessary. Protime-INRon 04-08-2020 INR Coag (PPP) [Relative time] 1.0 {INR} [place] Comment on above: Non-therapeutic Range: INR = 0.9-1.2 Therapeutic Range: Moderate Anticoagulant Intensity: INR = 2.0-3.0 High Anticoagulant Intensity: INR = 2.5-3.5 PT Coag (PPP) [Time] 13.2 s [facility] [employer] [place] Troponinon 04-08-2020 Troponin I.cardiac [Mass/Vol] NOT REPORTED [place] Troponin T.cardiac [Mass/Vol] NOT REPORTED <0.03 ng/mL [place] Troponin, High Sensitivity <6 0 - 14 ng/L [place] Comment on above: High Sensitivity Troponin values cannot be compared with other Troponin methodologies. Patients with high levels of Biotin oral intake (i.e >5mg/day) may have falsely decreased Troponin levels. Samples collected within 8 hours of biotin intake may require additional information for diagnosis. CBC Auto Differentialon Basophils (Bld) [#/Vol] 0.05 10*3/uL [employer] Phone: Basophils/100 WBC (Bld) 1 % 0 - 2 % [employer] Phone: Differential Type NOT REPORTED [employer] Phone: Eosinophils (Bld) [#/Vol] 0.15 10*3/uL [employer] Phone: Eosinophils/100 WBC (Bld) 1 % 1 - 4 % [employer] Phone: Erythrocyte distribution width (RBC) [Ratio] 12.1 % 11.8 - 14.4 % [employer] Phone: Hematocrit (Bld) [Volume fraction] 44.5 % 36.3 - 47.1 % [employer] Phone: Hemoglobin (Bld) [Mass/Vol] 14.0 g/dL 11.9 - 15.1 g/dL [employer] Phone: Immature granulocytes (Bld) [#/Vol] 0 % 0 [employer] Phone: Immature granulocytes (Bld) [#/Vol] 10*3/uL [employer] Phone: Interpretation and review of laboratory results Abnormal [employer] Phone: Lymphocytes (Bld) [#/Vol] 2.83 10*3/uL [employer] Phone: Lymphocytes/100 WBC (Bld) 27 % 24 - 43 % [employer] Phone: MCH (RBC) [Entitic mass] 27.6 pg 25.2 - 33.5 pg [employer] Phone: MCHC (RBC) [Mass/Vol] 31.5 g/dL 28.4 - 34.8 g/dL [employer] Phone: MCV (RBC) [Entitic vol] 87.6 fL 82.6 - 102.9 fL [employer] Phone: Monocytes (Bld) [#/Vol] 0.52 10*3/uL [employer] Phone: Monocytes/100 WBC (Bld) 5 % 3 - 12 % [employer] Phone: Platelet mean volume (Bld) [Entitic vol] 12.0 fL 8.1 - 13.5 fL [employer] Phone: Platelets (Bld) [#/Vol] NOT REPORTED [employer] Phone: Platelets (Bld) [#/Vol] 241 10*3/uL [employer] Phone: RBC (Bld) [#/Vol] 5.08 10*6/uL 3.95 - 5.1 1 m/uL [employer] Phone: RBC morphology finding Nom (Bld) NOT REPORTED [employer] Phone: Segmented neutrophils/100 WBC (Bld) 66 % High 36 - 65 % [employer] Phone: [employer]s [employer] 7.04 [employer] Work Phone: WBC (Bld) [#/Vol] 10.6 10*3/uL [employer] Work Phone: WBC (Bld) [#/Vol] 0.0 10*3/uL 0.0 per 10 0 WBC [employer] Work Phone: WBC Morphology NOT REPORTED [employer] [facility] Work Phone: [facility]acon 07-06-2019 Cholesterol [Mass/Vol] 198 mg/dL (<200) [facility] Work Phone: Comment on above: Note: Cholesterol Gu idelines:<200 [id number] Borderline>240 UndesirableResponsible Observer: CCEV AUTOFILE ([id number]) Comprehensive Metabolic Pane fermin 07-06-2019 Albumin [Mass/Vol] 4.5 g/dL 3.5 - 5.2 g/dL [employer] Phone: Albumin/Globulin [Mass ratio] 1.4 {ratio} [employer] Phone: ALP [Catalytic activity/Vol] 62 U/L 35 - 104 U/L [employer] Work Phone: ALT [Catalytic activity/Vol] 39 U/L High 5 - 33 U/L [employer] Phone: Anion gap [Moles/Vol] 16 mmol/L 9 - 17 mmol/L [employer] Phone: AST [Catalytic activity/Vol] 32 U/L High <32 [employer] Phone: Bilirubin Ql (U) 0.25 mg/dL Low 0.3 - 1.2 mg/dL [employer] Work Phone: Bun/Cre Ratio NOT REPORTED [facility] Work Phone: Calcium [Mass/Vol] 9.8 mg/dL 8.6 - 10. 4 mg/dL [employer] Phone: Chloride [Moles/Vol] 103 mmol/L 98 - 10 7 mmol/L [employer] Phone: CO2 [Moles/Vol] 19 mmol/L Low 20 - 31 mmol/L [employer] Phone: Creatinine [Mass/Vol] 0.51 mg/dL 0.5 - 0.9 mg/dL [employer] Phone: GFR >60 >60 mL/min [employer] Phone: GFR Non- >60 >60 mL/min [employer] Phone: GFR/1.73 sq M predicted among non-blacks MDRD (S/P/Bld) [Vol rate/Area] [employer] Phone: Comment on above: Average GFR for 20-2 9 years old: 116 mL/min/1.73sq m Chronic Kidney Disease: <60 mL/min/1.73sq m Kidney failure: <15 mL/min/1.73sq m eGFR calculated using average adult body mass. Additional eGFR calculator available at: http://www.Newsgrape/multiple_crcl_2012.htm GFR/1.73 sq M predicted among non-blacks MDRD (S/P/Bld) [Vol rate/Area] NOT REPORTED [employer] Phone: Glucose [Mass/Vol] 89 mg/dL 70 - 99 mg/dL [employer] Phone: Interpretation and review of laboratory results Abnormal [employer] Phone: Potassium [Moles/Vol] 4.6 mmol/L 3.7 - 5.3 mmol/L [employer] Phone: Protein [Mass/Vol] 7.8 g/dL 6.4 - 8.3 g/dL [employer] Phone: Sodium [Moles/Vol] 138 mmol/L 135 - 144 mmol/L [employer] Phone: Urea nitrogen [Mass/Vol] 14 mg/dL 6 - 20 mg/dL [employer] Phone: Hematologyon 02-06-2020 Basophils/100 WBC (Bld) 1 % (0-2) [facility] Work Phone: Comment on above: Note: Responsible Ob server software engineer: XNV AUTOFILE ([id number]) Eosinophils (Bld) [#/Vol] 0.15 10*3/uL (0.00-0.44) [facility] Work Phone: Comment on above: Note: Responsible Ob server software engineer: XNV AUTOFILE ([id number]) Eosinophils/100 WBC (Bld) 1 % (1-4) [facility] Work Phone: Comment on above: Note: Responsible Ob server software engineer: XNV AUTOFILE ([id number]) Hematocrit (Bld) [Volume fraction] 44.5 % (36.3-47.1) [facility] Work Phone: Comment on above: Note: Responsible Ob server software engineer: XNV AUTOFILE ([id number]) Hemoglobin (Bld) [Mass/Vol] 14.0 g/dL (11.9-15.1) [facility] Work Phone: Comment on above: Note: Responsible Ob server software engineer: XNV AUTOFILE ([id number]) Lymphocytes (Bld) [#/Vol] 2.83 10*3/uL (1.10-3.70) [facility] Work Phone: Comment on above: Note: Responsible Ob server software engineer: XNV AUTOFILE ([id number]) Lymphocytes/100 WBC (Bld) 27 % (24-43) [facility] Work Phone: Comment on above: Note: Responsible Ob server software engineer: XNV AUTOFILE ([id number]) MCH (RBC) [Entitic mass] 27.6 pg (25.2-33.5) [facility] Work Phone: Comment on above: Note: Responsible Ob server software engineer: XNV AUTOFILE ([id number]) MCV (RBC) [Entitic vol] 87.6 fL (82.6-102.9 ) [facility] Work Phone: Comment on above: Note: Responsible Ob server software engineer: XNV AUTOFILE ([id number]) Monocytes (Bld) [#/Vol] 0.52 10*3/uL (0.10-1.20) [facility] Work Phone: Comment on above: Note: Responsible Ob server software engineer: XNV AUTOFILE (3018) Monocytes/100 WBC (Bld) 5 % (3-12) [facility] Work Phone: Comment on above: Note: Responsible Ob server software engineer: XNV AUTOFILE (3018) Platelets (Bld) [#/Vol] NOT REPORTED [facility] Work Phone: [phone] Platelets (Bld) [#/Vol] 241 10*3/uL (138-453) [facility] Work Phone: Comment on above: Note: Responsible Ob server software engineer: XNV AUTOFILE (3018) RBC (Bld) [#/Vol] 5.08 10*6/uL (3.95-5.11) [facility] Work Phone: Comment on above: Note: Responsible Ob server software engineer: XNV AUTOFILE (3018) RBC morphology finding Nom (Bld) NOT REPORTED [facility] Work Phone: WBC (Bld) [#/Vol] 0.0 per_100_WBC (0.0) [facility] Work Phone: Comment on above: Note: Responsible Ob server software engineer: XNV AUTOFILE (3018) WBC (Bld) [#/Vol] 10.6 10*3/uL (3.5-11.3) [facility] Work Phone: Comment on above: Note: Responsible Ob server software engineer: XNV AUTOFILE (3018) Lipid, Fastingon 07-06-2019 Cholesterol [Mass/Vol] 198 mg/dL <200 [facility] [employer] Work Phone: Comment on above: Cholesterol Guidelines: <200 Desirable 200-240 Borderline >240 Undesirable Cholesterol in HDL [Mass/Vol] 53 mg/dL >40 [facility] Work Phone: Comment on above: HDL Guidelines: <40 Undesirable 40-59 Borderline >59 Desirable Cholesterol in LDL [Mass/Vol] 118 mg/dL 0 - 130 mg/dL [facility] Phone: Comment on above: LDL Guidelines: <100 Desirable 100-129 Near to/above Desirable 130-159 Borderline >159 Undesirable Direct (measured) LDL and calculated LDL are not interchangeable tests. Cholesterol in VLDL [Mass/Vol] NOT REPORTED 1 - 30 mg/dL [facility] Phone: Cholesterol.total/Chol esterol in HDL [Mass ratio] 3.7 {ratio} <5 [facility] Phone: Triglyceride, Fasting 135 mg/dL <150 [facility] [employer] Phone: Comment on above: Triglyceride Guidelines: <150 Desirable 150-199 Borderline 200-499 High >499 Very high Based on AHA Guidelines for fasting triglyceride, February 2012. Metabolic Panelon 07-06-2019 Albumin [Mass/Vol] 4.5 g/dL (3.5-5.2) [facility] Work Phone: Comment on above: Note: Responsible Ob server software engineer: CCEV AUTOFILE (3002) ALT [Catalytic activity/Vol] 39 U/L High (5-33) [facility] Work Phone: Comment on above: Note: Responsible Ob server software engineer: CCEV AUTOFILE (3002) Anion gap [Moles/Vol] 16 mmol/L (9-17) [facility] Work Phone: Comment on above: Note: Responsible Ob server software engineer: CCEV AUTOFILE (3002) AST [Catalytic activity/Vol] 32 U/L High (<32) [facility] Work Phone: Comment on above: Note: Responsible Ob server software engineer: CCEV AUTOFILE (3002) Bilirubin [Mass/Vol] 0.25 mg/dL Low (0.3-1.2) [facility] Work Phone: Comment on above: Note: Responsible Ob server software engineer: CCEV AUTOFILE (3002) Calcium [Mass/Vol] 9.8 mg/dL (8.6-10.4) [facility] Work Phone: Comment on above: Note: Responsible Ob server software engineer: CCEV AUTOFILE (3002) Chloride [Moles/Vol] 103 mmol/L (98-107) [facility] Work Phone: Comment on above: Note: Responsible Ob server software engineer: CCEV AUTOFILE (3002) CO2 [Moles/Vol] 19 mmol/L Low (20-31) [facility] Work Phone: Comment on above: Note: Responsible Ob server software engineer: CCEV AUTOFILE (3002) Creatinine [Mass/Vol] 0.51 mg/dL (0.50-0.90) [facility] Work Phone: Comment on above: Note: Responsible Ob server software engineer: CCEV AUTOFILE (3002) Glucose [Mass/Vol] 89 mg/dL (70-99) [facility] Work Phone: Comment on above: Note: Responsible Ob server software engineer: CCEV AUTOFILE (3002) Potassium [Moles/Vol] 4.6 mmol/L (3.7-5.3) [facility] Work Phone: Comment on above: Note: Responsible Ob server software engineer: CCEV AUTOFILE (3002) Protein [Mass/Vol] 7.8 g/dL (6.4-8.3) [facility] Work Phone: Comment on above: Note: Responsible Ob server software engineer: CCEV AUTOFILE (3002) Sodium [Moles/Vol] 138 mmol/L (135-144) [facility] Work Phone: Comment on above: Note: Responsible Ob server software engineer: CCEV AUTOFILE (3002) Urea nitrogen [Mass/Vol] 14 mg/dL (6-20) [facility] Work Phone: Comment on above: Note: Responsible Ob server software engineer: CCEV AUTOFILE (3002) Otheron 07-06-2019 (cont.) See Note [facility] Work Phone: Comment on above: Note: Average GFR fo r 20-29 years old:116 mL/min/1.73sq mChronic Kidney Disease:<60 mL/min/1.73sq mKidney failure:<15 mL/min/1.73sq meGFR calculated using average adult body mass. Additional eGFR calculatoravailable at:http://www.Newsgrape/multiple_crcl_2011.htmResponsible Observer: CCEV AUTOFILE (3002) Abs. Basophil 0.05 k/uL (0.00-0.20) [facility] Work Phone: Comment on above: Note: Responsible Ob server software engineer: XNV AUTOFILE (3018) Abs.Imm.Granulocyte <0.03 k/uL (0.00-0.30) [facility] Work Phone: Comment on above: Note: Responsible Ob server software engineer: XNV AUTOFILE (3018) Abs.Neutrophil (Seg) 7.04 k/uL (1.50-8.10) [facility] Work Phone: Comment on above: Note: Responsible Ob server software engineer: XNV AUTOFILE (3018) Albumin/Glob Ratio 1.4 (1.0-2.5) [facility] Work Phone: Comment on above: Note: Responsible Ob server software engineer: CCEV AUTOFILE (3002) Alkaline Phos 62 U/L (35-104) [facility] Work Phone: Comment on above: Note: Responsible Ob server software engineer: CCEV AUTOFILE (3002) Auto Diff Performed NOT REPORTED a [facility] Work Phone: BUN/CRE Ratio NOT REPORTED (9-20) [facility] Work Phone: Cholesterol,HDL 53 mg/dL (>40) [facility] Work Phone: Comment on above: Note: HDL Guidelines :<40 Tntxyoqvrkz11-53 Borderline>59 DesirableResponsible Observer: CCEV AUTOFILE (3002) Cholesterol,LDL 118 mg/dL (0-130) [facility] Work Phone: Comment on above: Note: LDL Guidelines :<100 Qtikdoyda509-023 Near to/above Tasrkkovp077-387 Borderline>159 UndesirableDirect (measured) LDL and calculated LDL are not interchangeable tests.Responsible Observer: CCEV AUTOFILE (3002) Cholesterol,VLDL NOT REPORTED mg/dL (-30) [facility] Work Phone: Cholesterol.total/Chol esterol in HDL [Mass ratio] 3.7 {ratio} (<5) [facility] Work Phone: Comment on above: Note: Responsible Ob server software engineer: CCEV AUTOFILE (3002) Erythrocyte distribution width (RBC) [Ratio] 12.1 % (11.8-14.4) [facility] Work Phone: Comment on above: Note: Responsible Ob server software engineer: XNV AUTOFILE (3018) Free Insulin 34 uIU/mL High (3-19) [facility] Work Phone: Comment on above: Note: Responsible Ob server software engineer: LAB [place] (0603) GFR, Amer >60 mL/min (>60) [facility] Work Phone: Comment on above: Note: Responsible Ob server software engineer: CCEV AUTOFILE (3002) GFR,non Amer >60 mL/min (>60) [facility] Work Phone: Comment on above: Note: Responsible Ob server software engineer: CCEV AUTOFILE (3002) Immature granulocytes (Bld) [#/Vol] 0 % (0) [facility] Work Phone: Comment on above: Note: Responsible Ob server software engineer: XNV AUTOFILE (3018) MCHC (RBC) [Mass/Vol] 31.5 g/dL (28.4-34.8) He [facility] Work Phone: Comment on above: Note: Responsible Ob server software engineer: XNV AUTOFILE (3018) Performing Lab: see note [facility] Work Phone: [phone] Comment on above: Note: BRI - [facility] [address] [facility] [address] Note: KIERAN - [facility] [address] [facility] [address] Platelet mean volume (Bld) [Entitic vol] 12.0 fL (8.1-13.5) [facility] Work Phone: [phone] Comment on above: Note: Responsible Ob server software engineer: XNV AUTOFILE (3018) Reported Physicians See Note [facility] Work Phone: [phone] Comment on above: Note: Reported Physi cians:Ordering: Allyson Floyd AAttending: Jhoana FloydaReferring: Allyson Floyd Segmented neutrophils/100 WBC (Bld) 66 % High (36-65) [facility] Work Phone: [phone] Comment on above: Note: Responsible Ob server software engineer: XNV AUTOFILE (6856) Staging: NOT REPORTED [facility] Work Phone: [phone] Thyroid Stim. Horm. 4.15 mIU/L (0.30-5.00) [facility] Work Phone: [phone] Comment on above: Note: Responsible Ob server software engineer: CCEV AUTOFILE (3002) Thyroxine, Free 1.21 ng/dL (0.93-1.70) [facility] Work Phone: [phone] Comment on above: Note: Responsible Ob server software engineer: CCEV AUTOFILE (3002) Total Insulin 46 uIU/mL High (3-19) [facility] Work Phone: Comment on above: Note: (NOTE)INTERPRE TIVE INFORMATION: Insulin, Free and TotalThis test reacts on a nearly equimolar basis with the analogsinsulin aspart, insulin glargine, and insulin lispro. Insulindetemir exhibits approximately 50 percent cross-reactivity. Testreactivity with insulin glulisine is negligible (<3 percent). Toconvert to pmol/L, multiply uIU/mL by 6.0. Reference intervalsestablished for fasting specimens.Performed by [facility],[address] [place] [id number] ofe.[employer], [place] Xiong MD, Lab. DirectorResponsible Observer: LAB KIERAN (0603) Triglyceride,Fasting 135 mg/dL (<150) [facility] Work Phone: Comment on above: Note: Triglyceride G uidelines:<150 Ifxoxzcuy638-385 Cvpwxfopip337-785 High>499 Very highBased on AHA Guidelines for fasting triglyceride, February 2012.Responsible Observer: CCEV AUTOFILE (4266) Triiodothyronine T3 150 ng/dL (80-200) [facility] Work Phone: Comment on above: Note: Responsible Ob server software engineer: CEEV AUTOFILE (7776) WBC Morphology NOT REPORTED [facility] Work Phone: T3on 07-06-2019 T3, Total 150 ng/dL 80 - 200 ng/dL [facility] Work Phone: T4, Freeon 07-06-2019 Thyroxine, Free 1.21 ng/dL 0.93 - 1.7 ng/dL [facility] Work Phone: TSH without Reflexon 020 TSH Qn 4.15 m[IU]/L [facility] Work Phone: US NON OB TRANSVAGINALon Satisfactory IUD position. RECOMMENDATIONS: No follow-up imaging is recommended. Reference: US BPRs based on Radiology 2009;256(3):943-54; CT/MR BPRs based on J Am Joanne Radiol 2013;10:675-681. [place] EXAMINATION: PELVIC ULTRASOUND 02/02/2019 TECHNIQUE: Transvaginal [...] Free Fluid: No evidence of free fluid. [facility] Jean Marie, Mhpn Incoming Radiant Results From [employer] - 02/02/2019 8:44 AM EDT EXAMINATION: PELVIC [...] based on J Am Joanne Radiol 2013;10:675-681. [facility] CNOVon 08-21-2018 CNOV Office Visit ([facility]ALK[facility] ) ----- ESTEFANIA NAVARRETE ([id number]) 1995 F Date Time Provider Department 08/21/18 12:00 PM MIGUEL TENA (DIAENLYS) WALK[facility] During your visit today, we recorded the following information about you: Temperature Pulse Respiration Blood pressure 97.6 degrees 99/minute 16/minute 136/81 Weight 109.8 kg Miguel Tena APRN.CNP 08/21/2018 12:46 PM Signed Subjective The history is provided by the patient. No smoking pipe maker was used. Cough This is a new [...] TESTING due on 2017 GC (GONORRHEA) SCREENING () due on 10/20/2017 CHLAMYDIA SCREENING (-) due on 10/20/2017 INFLUENZA(1) due on 01/29/2018 [...] is a safe and effective decongestant 3. Meta Nasal [place] may offer relief of nasal and head [...] help open respiratory and sinus passages. - Meta Nasal [place] may offer relief of nasal and head [...] get worse. Thank you for coming to [facility] today. I appreciate your confidence in choosing the [facility] for your medical care. Miguel Tena APRN.SHADE HANGER [facility] [address] [facility] [address] Referring Provider: SELF [200] [...] is a safe and effective decongestant 3. Meta Nasal [place] may offer relief of nasal and head [...] help open respiratory and sinus passages. - Meta Nasal [place] may offer relief of nasal and head [...] get worse. Thank you for coming to [facility] today. I appreciate your confidence in choosing the [facility] for your medical care. Miguel Tena APRN.[facility] [place] [address] [address] Prescriptions ordered this encounter Disp [...] Wheezing/Shortness of Breath. Encounter Status:Closed by MIGUEL TENA CNP on 08/21/18 Normal [facility] PROGRESSon 08-21-2018 Protein mass conc HNO ID: [id number] Author: Miguel Tena Service: ? Author Type: Nurse Practitioner Type: Progress Notes Filed: 08/21/2018 12:46 PM Note Text: Subjective The history is provided by the patient. No smoking pipe maker was used. Cough This is a new [...] in 3-5 days or get worse Miguel Tena APRN.SHADE HANGER Normal [facility] CNCOon 12-22-2017 CNCO Letter Text Erica Velazquez MD [facility] [address] [place] [address] Estefania Navarrete December 22, 2017 Estefania Navarrete [address] [facility] [address] Dear Ms. Navarrete, It was noted that you did not keep your scheduled appointment on 12-22-17. It is important to contact the office in advance if you are unable to keep your appointment so that it is available for other patients. Your medical care is important to us. Please call our office to reschedule an appointment. Sincerely, rEica Velazquez MD [facility] Consult Reporton 01-05-2017 Consult Report Patient: JITENDRA NAVARRETE Age: 21 years Sex: Female : 1995 Associated Diagnoses: None Author: TYRON MA RES, KAREN [facility] Podiatry DepartmentReason for Consult: Active Problems (1)Crush [...] medication- Patient to follow up with Dr. Reyse on in officeThank you for the consultationPatient seen and plan discussed with attending physician, Dr. Jaime Shepard [phone] ically Signed by: KAREN SHEPARD DPM, RES on 01/04/2017 13:59 EDTElectronically Co-Signed by: KAREN SHEPARD DPM, RESon 01/04/2017 14:37 EDTElectronically Co-Signed by: Rene REYES DPM 01/05/2017 18:28 EDT Normal [facility] APTTon 01-04-2017 aPTT 29.9 Second(s) Normal [facility] Comment on above: Result Comment: VERI FIED by Discern Expert. Performed By: #### 1 12916, 4512184, 003733, 963020, 564784, 368347 ####[facility] [address] [place] [id number] Medical Director: David Doe MD aPTT 25.9 Second(s) Normal 25.0-36.0 [facility] Comment on above: Performed By: #### 1 14686, 2100166, 728756, 446292, 927233, 207504 ####[facility] [address] [place] [id number] Medical Director: David Doe MD AUTO DIFFon 01-04-2017 Basophils Auto #/vol (Bld) 0.04 x1000 Normal 0.00-0.20 [facility] Comment on above: Performed By: #### 1 06608, 1249156, 303422, 867972, 838974, 585007 ####[facility] [address] [place] [address] Medical Director: David Doe MD Basos % 0.5 % Normal [facility] Comment on above: Performed By: #### 1 60132, 2631375, 949506, 224904, 117552, 377326 ####[facility] [address]ivtl[address] [place] [address] Medical Director: David Doe MD Eos Count 0.10 x1000 Normal 0.00-0.50 [facility] Comment on above: Performed By: #### 1 65445, 7941737, 845520, 831260, 251376, 882596 ####[facility] [address]wril[address] [place] [address] Medical Director: David Doe MD Eosinophils/100 leukocytes 1.0 % Normal [facility] Comment on above: Performed By: #### 1 38072, 0249252, 236323, 632147, 967045, 994681 ####[facility] [address] [place] [address] Medical Director: David Doe MD Lymphocytes 2.84 x1000 Normal 1.20-4.80 [facility] Comment on above: Performed By: #### 1 08985, 6054379, 442396, 448305, 787416, 772924 ####[facility] F[address]ep[address] [place] [address] Medical Director: David Doe MD Lymphocytes/100 leukocytes 29.4 % Normal [facility] Comment on above: Performed By: #### 1 93924, 9760376, 525134, 731535, 956710, 462791 ####[facility] [address]msci[address] [place] [address] Medical Director: David Doe MD [place] Count 0.68 x1000 Normal 0.10-1.00 [facility] Comment on above: Performed By: #### 1 40791, 0019970, 980639, 431200, 949287, 920234 ####[facility] [address] [place] [address] Medical Director: David Doe MD Monocytes/100 leukocytes 7.0 % Normal [facility] Comment on above: Performed By: #### 1 59857, 1401532, 198129, 485161, 992365, 879580 ####[facility] [address] [place] [address] Medical Director: David Doe MD Neutrophils 5.98 x1000 Normal 1.40-8.80 [facility] Comment on above: Performed By: #### 1 88847, 0809735, 602909, 274166, 691204, 462339 ####[facility] [address] [place] [address] Medical Director: David Doe MD Neutrophils/100 WBC Auto (Bld) 62.0 % Normal [facility] Comment on above: Performed By: #### 1 71177, 1065272, 447000, 901780, 907461, 098465 ####[facility] [address]fr[address] [place] [address] Medical Director: David Doe MD COMPMETAon 01-04-2017 Globulin 4.0 g/dL Normal [facility] Comment on above: Performed By: #### 1 85084, 9212248, 491361, 211836, 625152, 233711 ####[facility] [address]pendp[address] [place] [address] Medical Director: David Doe MD Osmolality 277 mOsm/kg Normal 275-295 [facility] Comment on above: Performed By: #### 1 83604, 1491874, 836948, 408919, 162420, 199115 ####[facility] [address] [place] [address] Medical Director: David Doe MD eGFR (non-black) mL/min/{1.73_m2} Normal So [facility] Comment on above: Result Comment: Afri can Ivorian GFR Calc Performed By: #### 1 94332, 2465270, 278906, 254881, 620731, 133305 ####[facility] [address] [place] [address] Medical Director: David Doe MD Result Comment: Non GFR CalcMedical judgement is necessary to interpret GFR. The calculated GFR may not accurately reflect renal status in patients >70 years, women, acutely ill hospitalized patients and patients with acute renal failure or known renal disease.Note:Creatinine clearance (not GFR) should be used for drug dosing. Albumin/Globulin Ratio 0.8 {ratio} Normal [facility] Comment on above: Performed By: #### 1 63443, 1317398, 213631, 220417, 880977, 891730 ####[facility] [address]ph[address] [place] [address] Medical Director: David Doe MD BUN/Creatinine Ratio 17.6 mg/mg Normal [facility] Comment on above: Performed By: #### 1 49429, 6269561, 933595, 634897, 484183, 763488 ####[facility] [address]xsdw[address] [place] [address] Medical Director: David Doe MD Alk Phos 61 unit/L Normal 45-117 [facility] Comment on above: Performed By: #### 1 35841, 3137504, 030807, 419974, 001127, 442561 ####[facility] [address] [place] [address] Medical Director: David Doe MD Bilirubin (total) 0.41 mg/dL Normal 0.20-1.00 [facility] Comment on above: Performed By: #### 1 15943, 6000547, 878190, 507598, 676620, 626530 ####[facility] [address]flu[address] [place] [address] Medical Director: David Doe MD Protein 7.4 g/dL Normal 6.0-8.5 [facility] Comment on above: Performed By: #### 1 93958, 0263580, 077807, 690400, 648801, 393779 ####[facility] [address]nxj[address] [place], [place] [id number]) [phone] Director: David Doe MD GPT 16 unit/L Normal 13-56 [facility] Comment on above: Result Comment: Mariposa puncture should occur prior to sulfasalazine and/or sulfapyridine administration due to the potential for falsely depressed results.Baseline assay values before administration of sulfasalazine and sulfapyridine therapy would not be affected. Performed By: #### 1 03150, 1661029, 358855, 881432, 726291, 556511 ####[facility] [address] [place] [address] Medical Director: David Doe MD Creatinine 0.7 mg/dL Normal 0.6-1.0 [facility] Comment on above: Performed By: #### 1 37942, 5297521, 055350, 719982, 929683, 303236 ####[facility] [address] [place] [address] Medical Director: David Doe MD GOT 14 unit/L Low 15-37 [facility] Comment on above: Result Comment: Mariposa puncture should occur prior to sulfasalazine and/or sulfapyridine administration due to the potential for falsely depressed results.Baseline assay values before administration of sulfasalazine and sulfapyridine therapy would not be affected. Performed By: #### 1 77703, 5528157, 024881, 908062, 094308, 889165 ####[facility] [address] [place] [address] Medical Director: David Doe MD Urea nitrogen 13 mg/dL Normal 10-20 [facility] Comment on above: Performed By: #### 1 85065, 2536153, 560080, 685529, 172020, 592516 ####[facility] [address] [place], [place] [id number]) [phone] Director: David Doe MD Glucose mass conc 86 mg/dL Normal 72-100 [facility] Comment on above: Result Comment: Mariposa puncture should occur prior to sulfasalazine administration due to the potential for falsely depressed results. Venipuncture should occur prior to sulfapyridine administration due to the potential falsely elevated results.Baseline assay values before administration of sulfasalazine and sulfapyridine therapy would not be affected. Performed By: #### 1 07336, 8600491, 281820, 140556, 949017, 601034 ####[facility] [address] [place], [place] [id number]) [phone] Director: David Doe MD Albumin 3.4 g/dL Normal 3.4-5.0 [facility] Comment on above: Performed By: #### 1 93933, 0693137, 849674, 771234, 159400, 032484 ####[facility] [address] [place] [address] Medical Director: David Doe MD CO2 19.0 mmol/L Low 21.0-32.0 [facility] Comment on above: Performed By: #### 1 76492, 4177402, 621194, 197367, 409297, 030238 ####[facility] [address]imw[address] [place], [place] [id number]) [phone] Director: David Doe MD Calcium 9.0 mg/dL Normal 8.5-10.5 [facility] Comment on above: Performed By: #### 1 40754, 6728063, 290616, 279260, 530859, 650822 ####[facility] [address] [place] [address] Medical Director: David Doe MD Potassium molar conc 3.7 mmol/L Normal 3.5-5.1 [facility] Comment on above: Performed By: #### 1 47312, 9371098, 319355, 186600, 867910, 422354 ####[facility] [address] [place] [address] Medical Director: David Doe MD Sodium 139 mmol/L Normal 135-145 [facility] Comment on above: Performed By: #### 1 60903, [id number], 249057, 377769, 630168, 446760 ####[facility] [address] [place] [address] Medical Director: David Doe MD Chloride 108 mmol/L Normal 100-109 [facility] Comment on above: Performed By: #### 1 85561, 4167874, 402678, 509244, 504468, 675785 ####[facility] [address] [place] [address] Medical Director: David Doe MD CT LOWER [...] or dislocation involving the rightfoot.Technologist: WCLDictated By: Andriy SMITH MDed By: Damir SMITH MD Out: 01/04/17 12:59:57 Normal [facility] ED Physician Reporton 2016 ED Physician Report Patient: JITENDRA NAVARRETE Age: 21 years Sex: Female : 1995 [...] Plan Diagnosis Crush injury of right foot ([id number] S97.81XA, Working, Medical) Plan Condition: Stable. Disposition: ED Discharge to Home was placed.(01/04/2017 13:39:31 EDT, Constant Order). Prescriptions: Launch prescriptions Pharmacy:Percocet 5/325 ([id number]) oral tablet (Prescribe): 1 tabs, ORAL, [id number], PRN: for pain, 24 tabs, 0 Refill(s)doxycycline hyclate 100 mg oral tablet (Prescribe): 100 mg = 1 tabs, ORAL, BID, for 10 days, 20 tabs, 0 Refill(s). Patient was given the following educational materials: Cryotherapy, Pzaw-cn-Kbgt, Compartment Syndrome of the Foot, Compartment Syndrome of the Foot, Cryotherapy, Ydxd-ax-Ekku. Follow up with: [facility] Within 3 to 5 days; [...] by: Selene GALVAN MD 01/04/2017 14:19 Normal [facility] ED Progress Noteon 7 ED Progress [...] medicatedsig other at bedsidepodiatry coming to see [id number] ASSUMED CARE OF PT, REPORT RECEIVED FROM [...] a little dizzy after trying crutches. Normal [facility] HCGon 01-04-2017 HCG, Qual <1.0 Normal [facility] Comment on above: Result Comment: 0 - 3 Negative3 - 50 Inconclusive>50 Positive Performed By: #### 1 47510, [id number], 034966, 452010, 200747, 659459 ####[facility] [address] [place], [place] [id number]) [phone] Director: David Doe MD HEMOon 01-04-2017 DIFF? No Normal [facility] Comment on above: Performed By: #### 1 43155, 7223815, 946351, 640523, 850996, 732215 ####[facility] [address] [place], [place] [id number]) [phone] Director: David Doe MD Erythrocyte distribution width Auto Ratio (RBC) 13.3 % Normal 11.5-14.5 [facility] Comment on above: Performed By: #### 1 40869, 9696986, 424013, 841362, 693540, 445342 ####[facility] [address] [place], [place] [id number]) [phone] Director: David Doe MD Erythrocytes (RBC) 4.80 x10 Normal 4.20-5.40 [facility] Comment on above: Result Comment: Note : RBC morphology is normal unless otherwise stated. Evaluation performed only if differential is requested. Performed By: #### 1 62043, 0154830, 513601, 131673, 650683, 950464 ####[facility] [address] [place], [place] [id number]) [phone] Director: David Doe MD Hematocrit (HCT) 39.0 % Normal 36.0-46.0 [facility] Comment on above: Performed By: #### 1 48162, 7701136, 978680, 601019, 787629, 359412 ####[facility] [address] [place], [place] [id number]) [phone] Director: David Doe MD Hemoglobin mass conc (Bld) 13.1 g/dL Normal 12.0-16.0 [facility] Comment on above: Performed By: #### 1 12367, 3897171, 686462, 141936, 783923, 811127 ####[facility] [address] [place], [place] [id number]) [phone] Director: David Doe MD MCH 27.3 pg Normal 27.0-34.0 [facility] Comment on above: Performed By: #### 1 24303, 4334391, 183528, 732132, 365372, 081430 ####[facility] [address] [place], [place] [id number]) [phone] Director: David Doe MD MCHC mass conc (RBC) 33.6 g/dL Normal 32.0-37.0 [facility] Comment on above: Performed By: #### 1 93518, 8134572, 910373, 631557, 634710, 920130 ####[facility] [address] [place], [place] [id number]) [phone] Director: David Doe MD MCV 81.3 fL Normal 80.0-100.0 [facility] Comment on above: Performed By: #### 1 93002, 0787368, 952553, 990562, 713121, 254679 ####[facility] [address] [place], [place] [id number]) [phone] Director: David Doe MD Nucleated RBC% 0 /100WC Normal [facility] Comment on above: Performed By: #### 1 23549, 8752460, 836456, 973780, 695747, 231795 ####[facility] [address] [place] [address] Medical Director: David Doe MD Platelet mean volume (PMV) 9.4 fL Normal 7.4-10.4 [facility] Comment on above: Performed By: #### 1 32461, 5083305, 034557, 115307, 501367, 170365 ####[facility] [address] [place] [address] Medical Director: David Doe MD Platelets 238 x1000 Normal 150-450 [facility] Comment on above: Performed By: #### 1 25509, 1910512, 197792, 578011, 270524, 654108 ####[facility] [address] [place] [address] Medical Director: David Doe MD WBC (Leukocytes) 9.6 10*3/uL Normal [facility] Comment on above: Performed By: #### 1 54149, 2609400, 612290, 635374, 840771, 738891 ####[facility] [address] [place] [address] Medical Director: David Doe MD WBC (Leukocytes) 9.6 x10 Normal 4.5-11.0 [facility] Comment on above: Performed By: #### 1 42653, 1043599, 742037, 455753, 802430, 110278 ####[facility] [address] [place] [address] Medical Director: David Doe MD PT INRon 01-04-2017 Protime Median 11.1 Second(s) Normal [facility] Comment on above: Result Comment: VERI FIED by Discern Expert. Performed By: #### 1 92815, 7514933, 316682, 600192, 279357, 090841 ####[facility] [address] [place], [place] [address] Medical Director: David Doe MD INR Coag RelTime (PPP) 1.0 {INR} Normal So [facility] Comment on above: Result Comment: Norm al reference range for INR on patients not on anticoagulant therapy: 0.9-1.1. General therapeutic range for patients on anticoagulant therapy: 2.0-3.5. Performed By: #### 1 43387, 0709613, 582550, 316949, 460159, 637788 ####[facility] [address] [place], [place] [address] Medical Director: David Doe MD Protime Patient 11.3 Second(s) Normal 9.8-12.7 [facility] Comment on above: Performed By: #### 1 07361, 6418447, 482731, 798852, 447556, 906969 ####[facility] [address] [place] [address] Medical Director: David Doe MD XR FOOT [...] fracture or joint dislocation.Technologist: TANA ESPINOZADictated By: LAUREN RESENDIZ, Leanngned By: Jose Alberto AGUILAR MD Out: 01/04/17 11:49:07 Normal [facility] Vital Signs Date Time Vital Sign Value Performing Clinician Facility 06-14-2024 09:05-0500 Body mass index (BMI) [Ratio] 41.16 kg/m2 Latasha KULKARNI Work Phone: [facility] 06-14-2024 09:05-0500 Body weight 119.2 kg Latasha KULKARNI Work Phone: [facility] 06-14-2024 09:05-0500 Diastolic blood pressure 74 mm[Hg] Latasha [place] PA Work Phone: [facility] 06-14-2024 09:05-0500 Systolic blood pressure 114 mm[Hg] Latasha Dayron PA Work Phone: [facility] 05-17-2024 08:45-0500 Body mass index (BMI) [Ratio] 41.04 kg/m2 Latasha [place] PA Work Phone: [facility] 05-17-2024 08:45-0500 Body weight 118.84 kg Latasha Dayron PA Work Phone: [facility] 05-17-2024 08:45-0500 Diastolic blood pressure 70 mm[Hg] Latasha [place] PA Work Phone: [facility] 05-17-2024 08:45-0500 Systolic blood pressure 118 mm[Hg] Latasha Dayron PA Work Phone: [facility] 04-18-2024 09:17-0500 Body mass index (BMI) [Ratio] 42.26 kg/m2 Latasha [place] PA Work Phone: [facility] 04-18-2024 09:17-0500 Body weight 122.38 kg Latasha [place] PA Work Phone: [facility] 04-18-2024 09:17-0500 Diastolic blood pressure 76 mm[Hg] Latasha Dayron PA Work Phone: [facility] 04-18-2024 09:17-0500 Systolic blood pressure 114 mm[Hg] Latasha Dayron PA Work Phone: [facility] 02-21-2024 14:13-0400 Body mass index (BMI) [Ratio] 39.47 kg/m2 Latasha Dayron PA Work Phone: [facility] 02-21-2024 14:13-0400 Body weight 114.31 kg Latasha Dayron PA Work Phone: [facility] 02-21-2024 14:13-0400 Diastolic blood pressure 74 mm[Hg] Latasha Dayron PA Work Phone: [facility] 02-21-2024 14:13-0400 Systolic blood pressure 118 mm[Hg] Latasha KULKARNI Work Phone: [facility] 07-15-2023 11:50-0500 Body mass index (BMI) [Ratio] 36.65 kg/m2 Aditya Billy DO Work Phone: [facility] 07-15-2023 11:50-0500 Body weight 106.14 kg Aditya Billy DO Work Phone: [facility] 12-04-2021 10:03-0400 Body height 173.35 cm [employer] 12-04-2021 10:03-0400 Body mass index (BMI) [Ratio] 35.22 kg/m2 [employer] 12-04-2021 10:03-0400 Body surface area Derived from formula 2.26 m2 [employer] 12-04-2021 10:03-0400 Body weight 105.83 kg [employer] 12-04-2021 10:03-0400 Diastolic blood pressure 68 mm[Hg] [employer] 12-04-2021 10:03-0400 Heart rate 68 /min [employer] 12-04-2021 10:03-0400 Systolic blood pressure 116 mm[Hg] [employer] 10-15-2020 01:15-0400 Diastolic blood pressure 71 mm[Hg] Donny Hatfield DO Work Phone: [facility] Work Phone: 10-15-2020 01:15-0400 SaO2% (BldA) [Mass fraction] 94 % Donny Andes DO Work Phone: [employer] Work Phone: 10-15-2020 01:15-0400 Systolic blood pressure 117 mm[Hg] Donny Andes DO Work Phone: [employer] Work Phone: 10-14-2020 23:18-0400 Body temperature 97.59 [degF] Donny Andes DO Work Phone: [employer] Work Phone: 10-14-2020 23:18-0400 Heart rate 98 /min Donny Andes DO Work Phone: [employer] Work Phone: 10-14-2020 23:18-0400 Respiratory rate 18 /min Donny Andes DO Work Phone: [employer] Work Phone: 09-23-2020 08:31-0400 Body height 172.72 cm Miguel Holley CNP Work Phone: [employer] [facility] Work Phone: 09-23-2020 08:31-0400 Body mass index (BMI) [Ratio] 40.9 kg/m2 Miguel Holley CNP Work Phone: [employer] [facility] Work Phone: 09-23-2020 08:31-0400 Body surface area Derived from formula 2.32 m2 Miguel Holley CNP Work Phone: [employer] [facility] Work Phone: 09-23-2020 08:31-0400 Body temperature 964 [degF] Miguel Holley CNP Work Phone: [facility] Work Phone: 09-23-2020 08:31-0400 Body weight 122.02 kg Miguel Holley CNP Work Phone: [facility] Work Phone: 09-23-2020 08:31-0400 Diastolic blood pressure 80 mm[Hg] Miguel Holley CNP Work Phone: [facility] Work Phone: 09-23-2020 08:31-0400 Heart rate 80 /min Miguel Holley CNP Work Phone: [facility] Work Phone: 09-23-2020 08:31-0400 Respiratory rate 18 /min Miguel Holley CNP Work Phone: [facility] Work Phone: 09-23-2020 08:31-0400 SaO2% (BldA) [Mass fraction] 98 % Miguel Holley CNP Work Phone: [facility] Work Phone: 09-23-2020 08:31-0400 Systolic blood pressure 126 mm[Hg] Miguel Holley CNP Work Phone: [facility] Work Phone: 04-08-2020 16:25-0500 Respiratory Rate 16 /min Miguel Holley [facility], [place] 04-08-2020 16:20-0500 Pulse (Heart Rate) 86 /min [facility], [place] 04-08-2020 16:20-0500 Pulse Oximetry 98 % [facility] , [place] 04-08-2020 16:00-0500 BP Diastolic 66 mm[Hg] [facility] [place] 04-08-2020 16:00-0500 BP Systolic 121 mm[Hg] [facility] [place] 04-08-2020 13:23-0500 Body Temperature 98.4 [degF] [facility] [place] 03-19-2020 19:09-0400 BMI (Body Mass Index) 37.3 kg/m2 [facility] Work Phone: 03-19-2020 19:09-0400 Body weight 111.13 kg [facility] Work Phone: 03-19-2020 19:09-0400 BSA (Body Surface Area) 2.23 m2 [facility] Work Phone: 03-19-2020 19:09-0400 Height 172.72 cm [facility] Work Phone: 03-05-2020 08:30-0400 BMI (Body Mass Index) 37.3 kg/m2 [facility] Work Phone: 03-05-2020 08:30-0400 Body Temperature 95.4 [degF] [facility] Work Phone: 03-05-2020 08:30-0400 Body weight 111.13 kg [facility] Work Phone: 03-05-2020 08:30-0400 BP Diastolic 80 mm[Hg] [facility] Work Phone: 03-05-2020 08:30-0400 BP Systolic 120 mm[Hg] [facility] Work Phone: 03-05-2020 08:30-0400 BSA (Body Surface Area) 2.23 m2 [facility] Work Phone: 03-05-2020 08:30-0400 Height 172.72 cm [facility] Work Phone: 03-05-2020 08:30-0400 Pulse (Heart Rate) 74 /min [facility] Work Phone: 03-05-2020 08:30-0400 Pulse Oximetry 99 % [facility] Work Phone: 03-05-2020 08:30-0400 Respiratory Rate 18 /min [facility] Work Phone: 03-05-2020 08:30-0400 SaO2% (BldA) [Mass fraction] 99 % [facility] Work Phone: [facility] Work Phone: 12-05-2019 08:37-0400 BMI (Body Mass Index) 35.4 kg/m2 [facility] Work Phone: 12-05-2019 08:37-0400 Body Temperature 98.8 [degF] [facility] Work Phone: 12-05-2019 08:37-0400 Body weight 105.69 kg [facility] Work Phone: 12-05-2019 08:37-0400 BP Diastolic 72 mm[Hg] [facility] Work Phone: 12-05-2019 08:37-0400 BP Systolic 116 mm[Hg] [facility] Work Phone: 12-05-2019 08:37-0400 BSA (Body Surface Area) 2.18 m2 [facility] Work Phone: 12-05-2019 08:37-0400 Flow Rate 0 L/min [facility] Work Phone: 12-05-2019 08:37-0400 Height 172.72 cm [facility] Work Phone: 12-05-2019 08:37-0400 Inhaled Oxygen Concentration 21 % [facility] Work Phone: 12-05-2019 08:37-0400 Pulse (Heart Rate) 81 /min [facility] Work Phone: 12-05-2019 08:37-0400 Pulse Oximetry 98 % [facility] Work Phone: 12-05-2019 08:37-0400 Respiratory Rate 18 /min [facility] Work Phone: 12-05-2019 08:37-0400 SaO2% (BldA) [Mass fraction] 98 % [facility] Work Phone: [facility] Work Phone: 11-06-2019 09:02-0400 BMI (Body Mass Index) 36.2 kg/m2 [facility] Work Phone: 11-06-2019 09:02-0400 Body Temperature 95.8 [degF] [facility] Work Phone: 11-06-2019 09:02-0400 Body weight 107.96 kg [facility] Work Phone: 11-06-2019 09:02-0400 BP Diastolic 80 mm[Hg] [facility] Work Phone: 11-06-2019 09:02-0400 BP Systolic 110 mm[Hg] [facility] Work Phone: 11-06-2019 09:02-0400 BSA (Body Surface Area) 2.2 m2 [facility] Work Phone: 11-06-2019 09:02-0400 Height 172.72 cm [facility] Work Phone: 11-06-2019 09:02-0400 Pulse (Heart Rate) 94 /min [facility] Work Phone: 11-06-2019 09:02-0400 Pulse Oximetry 98 % [facility] Work Phone: 11-06-2019 09:02-0400 Respiratory Rate 18 /min [facility] Work Phone: 11-06-2019 09:02-0400 SaO2% (BldA) [Mass fraction] 98 % Miguel Holley [facility] Work Phone: [facility] Work Phone: 10-12-2019 09:53-0400 BMI (Body Mass Index) 38.2 kg/m2 [facility] Work Phone: 10-12-2019 09:53-0400 Body Temperature 98.7 [degF] [facility] Work Phone: 10-12-2019 09:53-0400 Body weight 113.85 kg [facility] Work Phone: 10-12-2019 09:53-0400 BP Diastolic 82 mm[Hg] [facility] Work Phone: 10-12-2019 09:53-0400 BP Systolic 122 mm[Hg] [facility] Work Phone: 10-12-2019 09:53-0400 BSA (Body Surface Area) 2.25 m2 [facility] Work Phone: 10-12-2019 09:53-0400 Flow Rate 0 L/min [facility] Work Phone: 10-12-2019 09:53-0400 Height 172.72 cm [facility] Work Phone: 10-12-2019 09:53-0400 Inhaled Oxygen Concentration 21 % [facility] Work Phone: 10-12-2019 09:53-0400 Pulse (Heart Rate) 97 /min [facility] Work Phone: 10-12-2019 09:53-0400 Pulse Oximetry 98 % [facility] Work Phone: 10-12-2019 09:53-0400 Respiratory Rate 18 /min [facility] Work Phone: 10-12-2019 09:53-0400 SaO2% (BldA) [Mass fraction] 98 % [facility] Work Phone: [facility] Work Phone: 09-14-2019 08:35-0400 BMI (Body Mass Index) 37.7 kg/m2 [facility] Work Phone: 09-14-2019 08:35-0400 Body Temperature 96.6 [degF] [facility] Work Phone: 09-14-2019 08:35-0400 Body weight 112.49 kg [facility] Work Phone: 09-14-2019 08:35-0400 BP Diastolic 80 mm[Hg] [facility] Work Phone: 09-14-2019 08:35-0400 BP Systolic 130 mm[Hg] [facility] Work Phone: 09-14-2019 08:35-0400 BSA (Body Surface Area) 2.24 m2 [facility] Work Phone: 09-14-2019 08:35-0400 Height 172.72 cm [facility] Work Phone: 09-14-2019 08:35-0400 Pulse (Heart Rate) 81 /min [facility] Work Phone: 09-14-2019 08:35-0400 Pulse Oximetry 98 % [facility] Work Phone: 09-14-2019 08:35-0400 Respiratory Rate 18 /min [facility] Work Phone: 09-05-2019 10:26-0400 BMI (Body Mass Index) 37.3 kg/m2 [facility] Work Phone: 09-05-2019 10:26-0400 Body weight 111.13 kg [facility] Work Phone: 09-05-2019 10:26-0400 BSA (Body Surface Area) 2.23 m2 [facility] Work Phone: 09-05-2019 10:26-0400 Height 172.72 cm [facility] Work Phone: 08-17-2019 08:29-0400 BMI (Body Mass Index) 37.3 kg/m2 [facility] Work Phone: 08-17-2019 08:29-0400 Body Temperature 97.9 [degF] [facility] Work Phone: 08-17-2019 08:29-0400 Body weight 111.13 kg [facility] Work Phone: 08-17-2019 08:29-0400 BP Diastolic 80 mm[Hg] [facility] Work Phone: 08-17-2019 08:29-0400 BP Systolic 120 mm[Hg] [facility] Work Phone: 08-17-2019 08:29-0400 BSA (Body Surface Area) 2.23 m2 [facility] Work Phone: 08-17-2019 08:29-0400 Height 172.72 cm [facility] Work Phone: 08-17-2019 08:29-0400 Pulse (Heart Rate) 68 /min [facility] Work Phone: 08-17-2019 08:29-0400 Pulse Oximetry 98 % [facility] Work Phone: 08-17-2019 08:29-0400 Respiratory Rate 18 /min [facility] Work Phone: 07-20-2019 08:36-0500 BMI (Body Mass Index) 39 kg/m2 [facility] Work Phone: 07-20-2019 08:36-0500 Body Temperature 98.4 [degF] [facility] Work Phone: 07-20-2019 08:36-0500 Body weight 116.39 kg [facility] Work Phone: 07-20-2019 08:36-0500 BP Diastolic 80 mm[Hg] [facility] Work Phone: 07-20-2019 08:36-0500 BP Systolic 120 mm[Hg] [facility] Work Phone: 07-20-2019 08:36-0500 BSA (Body Surface Area) 2.27 m2 [facility] Work Phone: 07-20-2019 08:36-0500 Height 172.72 cm [facility] Work Phone: 07-20-2019 08:36-0500 Pulse (Heart Rate) 87 /min [facility] Work Phone: 07-20-2019 08:36-0500 Pulse Oximetry 97 % [facility] Work Phone: 07-20-2019 08:36-0500 Respiratory Rate 18 /min [facility] Work Phone: 07-06-2019 08:43-0500 BMI (Body Mass Index) 39.7 kg/m2 [facility] Work Phone: 07-06-2019 08:43-0500 Body Temperature 97.3 [degF] [facility] Work Phone: 07-06-2019 08:43-0500 Body weight 118.39 kg [facility] Work Phone: 07-06-2019 08:43-0500 BP Diastolic 82 mm[Hg] [facility] Work Phone: 07-06-2019 08:43-0500 BP Systolic 122 mm[Hg] [facility] Work Phone: 07-06-2019 08:43-0500 BSA (Body Surface Area) 2.29 m2 [facility] Work Phone: 07-06-2019 08:43-0500 Height 172.72 cm [facility] Work Phone: 07-06-2019 08:43-0500 Pulse (Heart Rate) 78 /min [facility] Work Phone: 07-06-2019 08:43-0500 Pulse Oximetry 98 % [facility] Work Phone: 07-06-2019 08:43-0500 Respiratory Rate 18 /min [facility] Work Phone: Encounters Encounter Date Encounter Type Care Provider Facility Start: 08-04-2024 End: 08-04-2024 ambulatory LATASHA PADGETT Not Available Start: 07-13-2024 End: 07-13-2024 Clinisync Result Encounter Aditya Buenrostroo DO Work Phone: [facility] External Department Unsolicited Start: 07-13-2024 End: 07-13-2024 Clinisync Result Encounter Aditya Billy DO Work Phone: [facility] External Department Unsolicited Start: 07-10-2024 End: 07-10-2024 Clinisync Result Encounter Aditya Billy DO Work Phone: [facility] External Department Unsolicited Start: 07-10-2024 End: 07-10-2024 Clinisync Result Encounter Aditya Cervantes DO Work Phone: [facility] External Department Unsolicited Start: 06-14-2024 End: 06-14-2024 Bamboo flowsheet Latasha Padgett PA Work Phone: [facility] Start: 06-14-2024 End: 06-14-2024 Bamboo flowsheet Latasha Padegtt PA Work Phone: [facility] Start: 06-14-2024 End: 06-14-2024 ambulatory LATASHA PADGETT Not Available Start: 06-14-2024 End: 06-14-2024 Office outpatient visit 15 minutes Latasha Padgett PA Work Phone: [facility] Comment on above: Encounter for weight management Start: 05-17-2024 End: 05-17-2024 Bamboo flowsheet Latasha Padgett PA Work Phone: [facility] Start: 05-17-2024 End: 05-17-2024 Bamboo flowsheet Latasha Padgett PA Work Phone: [facility] Start: 05-17-2024 End: 05-17-2024 Patient encounter procedure Latasha Padgett PA Work Phone: [facility] Comment on above: Weight gain; Encounter for weight management Start: 05-17-2024 End: 05-17-2024 ambulatory LATASHA PADGETT Not Available Start: 04-18-2024 End: 04-18-2024 Bamboo flowsheet Latasha Padgett PA Work Phone: [facility] Start: 04-18-2024 End: 04-18-2024 Bamboo flowsheet Latasha Padgett PA Work Phone: [facility] Start: 04-18-2024 End: 04-18-2024 ambulatory LATASHA PADGETT Not Available Start: 04-18-2024 End: 04-18-2024 Office outpatient visit 15 minutes Latasha Padgett PA Work Phone: [facility] Comment on above: S/P section ; Postop check; Encounter for weight management Start: 02-21-2024 End: 02-21-2024 care visit Latasha Padgett PA Work Phone: [facility] Comment on above: 6 weeks f ollow-up; S/P section Start: 02-21-2024 End: 02-21-2024 ambulatory LATASHA PADGETT Not Available Start: 01-10-2024 End: 01-10-2024 ambulatory LATASHA PADGETT Not Available Start: 12-30-2023 End: 12-30-2023 ambulatory LATASHA DAYRON Not Available Start: 12-23-2023 End: 12-23-2023 ambulatory LATASHA DAYRON Not Available Start: 12-15-2023 End: 12-15-2023 ambulatory ADITYA BILLY Not Available Start: 12-06-2023 End: 12-06-2023 ambulatory ADITYA BILLY Not Available Start: 11-18-2023 End: 11-18-2023 ambulatory ADITYA BILLY Not Available Start: 10-28-2023 End: 10-28-2023 ambulatory ADITYA BILLY Not Available Start: 10-14-2023 End: 10-14-2023 ambulatory LATASHA DAYRON Not Available Start: 10-07-2023 End: 10-07-2023 ambulatory ADITYA BILLY Not Available Start: 09-16-2023 End: 09-16-2023 ambulatory ADITYA BILLY Not Available Start: 08-19-2023 End: 08-19-2023 ambulatory LATASHA DAYRON Not Available Start: 07-15-2023 End: 07-15-2023 flow sheet Aditya Billy DO Work Phone: [facility] Comment on above: Second trimester pre gnancy Start: 05-12-2023 End: 05-13-2023 ambulatory MIGUEL Jamal [facility] Start: 05-07-2023 End: 05-08-2023 ambulatory MIGUEL Jamal [facility] Start: 05-05-2023 End: 05-06-2023 ambulatory MIGUEL Jamal [facility] Start: 03-24-2023 End: 03-27-2023 ambulatory ADITYA ANGELICA [facility] Start: 01-20-2023 End: 01-20-2023 [facility] Start: 01-01-2023 End: 01-02-2023 ambulatory MIGUEL HOLLEY [facility] Start: 01-01-2023 Encounter for gynecological examination (general) (routine) without abnormal findings [facility] Start: 01-01-2023 End: 01-01-2023 Patient encounter procedure Miguel Holley OPTICAL INSTRUMENT SPECIALIST - [employer] Work Phone: [facility] Start: 01-01-2023 End: 01-01-2023 Subsequent hospital visit by physician Miguel Holley APRN - SHADE H[employer]ER Work Phone: [facility] Comment on above: Women's annual routi ne gynecological examination Start: 12-16-2021 End: 12-16-2021 Subsequent hospital visit by physician Miguel Stewart CNP Work Phone: [facility] Start: 12-04-2021 [facility] Shona Jenkins rne Other [facility] Office Start: 10-02-2021 End: 10-02-2021 Patient encounter procedure Miguel Holley OPTICAL INSTRUMENT SPECIALIST - SHADE [employer]ER Work Phone: [facility] Start: 10-02-2021 End: 10-02-2021 Subsequent hospital visit by physician iMguel Holley APRN - [employer]ADE [employer]ER Work Phone: [facility] Comment on above: Women's annual routi ne gynecological examination Start: 10-14-2020 End: 10-15-2020 Emergency department patient visit Donny Hatfield DO Work Phone: [facility] ED Comment on above: Nausea vomiting and diarrhea (Primary Dx); Generalized abdominal pain Start: 09-23-2020 End: 09-24-2020 ambulatory MIGUEL HOLLEY [facility] Start: 09-23-2020 End: 09-23-2020 Subsequent hospital visit by physician Miguel Holley APRN - DIANELYS Work Phone: [facility] Start: 09-23-2020 End: 09-23-2020 General Jammie RODAS Work Phone: [facility] Work Phone: Start: 09-23-2020 End: 09-23-2020 Adult health examination Miguel Holley CNP Work Phone: [facility] Work Phone: Start: 09-23-2020 End: 09-23-2020 FQHC visit, estab pt Miguel Holley SHADE HANGER Work Phone: [facility] Work Phone: Start: 04-08-2020 End: 04-08-2020 Emergency department patient visit [facility] ED Comment on above: COVID-19 (Primary Dx ); Fatty liver Start: 03-19-2020 End: 03-19-2020 Telemedicine consultation with patient Miguel Holley Work Phone: [facility] Work Phone: Start: 03-05-2020 End: 03-05-2020 Established patient Miguel Holley Work Phone: [facility] Work Phone: Start: 12-05-2019 End: 12-05-2019 Established patient Poly Franco Work Phone: [facility] Work Phone: Start: 11-06-2019 End: 11-06-2019 Established patient Poly Franco Work Phone: [facility] Work Phone: Start: 10-12-2019 End: 10-12-2019 Patient encounter procedure Paty Short Work Phone: [facility] Work Phone: Start: 10-12-2019 End: 10-12-2019 Established patient Poly Franco Work Phone: [facility] Work Phone: Start: 09-14-2019 End: 09-14-2019 Established patient Poly Franco Work Phone: [facility] Work Phone: Start: 09-11-2019 End: 09-11-2019 Telemedicine consultation with patient Poly Franco Work Phone: [facility] Work Phone: Start: 09-05-2019 End: 09-05-2019 Telemedicine consultation with patient Poly Franco Work Phone: [facility] Work Phone: Start: 08-17-2019 End: 09-11-2019 Telemedicine consultation with patient Poly Franco Work Phone: [facility] Work Phone: Start: 08-17-2019 End: 08-17-2019 Established patient Miguel Holley Work Phone: [facility] Work Phone: Start: 07-20-2019 End: 07-20-2019 Established patient Miguel Holley Work Phone: [facility] Work Phone: Start: 07-06-2019 End: 07-06-2019 Subsequent hospital visit by physician Jackson FORMAN [facility] Start: 07-06-2019 End: 07-06-2019 Established patient Anh Virk Work Phone: [facility] Work Phone: Start: 07-06-2019 End: 07-06-2019 New patient Allyson Floyd Work Phone: [facility] Work Phone: Start: 02-02-2019 End: 02-04-2019 Subsequent hospital visit by physician [facility] Ultrasound Comment on above: Encounter for intrau terine device placement Start: 08-21-2018 End: 08-23-2018 Patient encounter procedure [facility] Start: 01-04-2017 End: 01-04-2017 Emergency department patient visit [address] [facility] Facility:[id number] Procedures Date Procedure Procedure Detail Performing Clinician Start: 07-13-2024 [facility] PREG QUANT HCG Core y Billy DO Work Phone: Start: 07-10-2024 [facility] PREG QUANT HCG Core y Billy DO Work Phone: Start: 07-15-2023 Urnls dip stick/tabl et rgnt non-auto w/o micrscp Aditya Billy DO Work Phone: Start: 12-16-2021 Assay of blood/uric acid Dedrick oWod PA-C Work Phone: Start: 12-16-2021 C-reactive protein Robel JAQUEZC Work Phone: Start: 12-04-2021 Nerve conduction heaven dies 9-10 studies Shona Lucio Start: 10-02-2021 Microscopic observat ion [Identifier] in Cervix by Cyto stain Miguel Holley APRN - SHADE HANGER Work Phone: Start: 10-15-2020 Urinalysis microscop ic [...] Phone: Start: 10-15-2020 Hepatic function panel Donny Andes DO Work Phone: Start: 09-23-2020 Most recent diastoli c blood pressure < 80 mm hg Miguel Holley CNP Work Phone: Start: 09-23-2020 Most recent systolic blood pressure <130 mm hg Miguel Holley CNP Work Phone: Start: 09-23-2020 Pt-focused hlth risk assmt score doc stnd instrm Miguel Leydi SHADE HANGER Work Phone: Start: 09-23-2020 Antibody hiv-1&hiv-2 single result Miguel Holley SHADE HANGER Work Phone: Start: 09-23-2020 Comprehensive metabo lic panel Miguel Holley OPTICAL INSTRUMENT SPECIALIST - SHADE HANGER Work Phone: Start: 04-08-2020 Ct thorax w/contrast material Ninoska Lopes Work Phone: Start: 04-08-2020 COVID-19 Ninoska Herron alejandro Work Phone: Start: 04-08-2020 Urine test visual color cmprsn meths Ninoska Lopes Work Phone: Start: 04-08-2020 Assay of troponin quantitative Ninoskamaame Lopes Work Phone: Start: 04-08-2020 Blood count complete automated Ninoska Lopes Work Phone: Start: 04-08-2020 Comprehensive metabo lic panel Ninoska Lopes Work Phone: Start: 04-08-2020 Natriuretic peptide [facility] ruddy Lopes Work Phone: Start: 04-08-2020 Prothrombin time [...] 09-14-2019 Diast bp 80-[address] Franco Work Phone: Start: 09-14-2019 Syst bp ge 130 - 139mm hg Poly Franco Work Phone: Start: 08-17-2019 Diast bp <80 mm hg Humza Holley Work Phone: Start: 08-17-2019 Syst bp lt 130 mm hg nury Holley Work Phone: Start: 07-06-2019 Hemoglobin glycosyla marty [...] in Cervix by Cyto stain Miguel Holley OPTICAL INSTRUMENT SPECIALIST - [employer]ADE [employer]ANGER Work Phone: H/O: section S/P jose carlos an section Latasha KULKARNI Work Phone: H/O: section S/P jose carlos an section Latasha KULKARNI Work Phone: NEGATED: Highlighted row has not occurred!Start: 11-06-2019 currently nursing Miguel Holley NEGATED: Highlighted row has not occurred!Start: 11-06-2019 currently Miguel Holley NEGATED: Highlighted row has not occurred!Start: 07-06-2019 reported medical history Miguel Holley Plan of Treatment Date Care Activity Detail Author Start: 10-02-2024 Screening for malign ant neoplasm of cervix Pap smear [facility] Start: 08-04-2024 End: 08-04-2024 ambulatory 08/04/2024 9:00 AM EST Initial [facility] [address] [facility] [place] [address] [facility] Start: 08-04-2024 End: 08-04-2024 Professional / ancillary services management 08/04/2024 8:30 AM EST Ancillary Procedure [facility] [address] [facility] [place] [address] [facility] Start: 07-12-2024 End: 07-12-2024 Patient encounter procedure 07/12/2024 8:30 AM EST Office Visit [facility] [address] [facility] [address] [place] [place] [id number] Latasha Padgett, PA [address] [place] [address] [facility] Start: 05-17-2024 End: 05-17-2024 Patient encounter procedure [facility] Comment on above: Arrived Start: 05-10-2024 End: 05-10-2024 Patient encounter procedure 05/10/2024 8:40 AM EST Office Visit [facility] [address] [facility] [address] [place] [place] [address] Latasha Padgett, PA [address] [place] [address] [facility] Start: 01-30-2024 Influenza vaccination Influenza Vacc ine (#1) [facility] Start: 08-19-2023 End: 08-19-2023 Patient encounter procedure 08/19/2023 11:00 AM EDT Routine [facility] [address] [facility] [address] [place] [address] Latasha Padgett PA [address] [place] [address] [facility] Start: 08-19-2023 End: 08-19-2023 Professional / ancillary services management 08/19/2023 10:00 AM EDT Ancillary Procedure [facility] [address] [place] [address] [facility] Start: 01-20-2023 End: 01-20-2023 Admission to same day surgery center 01/20/2023 Surgery IP Unit Vickie Nichols MD [address] [place] [address] [address] [place] [address] HYSTEROSCOPY - IUD REMOVAL [facility] Comment on above: HYSTEROSCOPY - IUD R EMOVAL Start: 01-20-2023 End: 01-20-2023 Hysteroscopy removal impacted foreign body HYSTEROSCOPY Intrauterine contraceptive device threads lost, initial encounter 01/20/2023 11:10 AM EDT [facility] Start: 01-20-2023 Subsequent hospital visit by physician 01/20/2023 Hospital Encounter IP Unit Vickie Nichols MD [address] [facility] [address] [place] [address] [facility] Start: 12-29-2022 Influenza vaccination Flu vaccine (# 1) [facility] Start: 04-27-2022 End: 04-27-2022 Patient encounter procedure [facility] Start: 01-29-2022 Influenza vaccination [facility] Start: 02-07-2021 Cervical cancer screen Cervical canc er screen [facility] [place], [place] Start: 02-07-2021 Screening for malign ant neoplasm of cervix [facility] Start: 01-29-2021 Influenza vaccination Flu vacc ine (Season Ended) [facility] Work Phone: Start: 09-30-2020 CBC W Auto Different ial panel - Blood [facility] Start: 09-30-2020 Lipid 1996 panel - S stefan or Plasma LIPID PROFILE [facility] Start: 09-23-2020 Psychiatry Health [facility] Work Phone: Comment on above: Note: Please make a referral to: Start: 03-26-2020 SARS-CoV-2, [facility] Work Phone: Start: 03-19-2020 COVID Drive up Testing [facility] Work Phone: Start: 02-06-2020 Medical Establ ished Patient [facility] Work Phone: Start: 01-30-2020 Influenza vaccination Flu vaccine (# 1) [place], [place] Start: 11-09-2019 Medical Establ ished Patient [facility] Work Phone: Start: 10-11-2019 Medical Establ ished Patient [facility] Work Phone: Start: 09-14-2019 Medical Establ ished Patient [facility] Work Phone: Start: 08-17-2019 Medical Establ ished Patient [facility] Work Phone: Start: 07-20-2019 Medical Establ ished Patient [facility] Work Phone: Start: 07-13-2019 Lipid 1996 panel [facility] Work Phone: Start: 02-14-2019 End: 02-14-2019 Office Visit 02/14/2019 Office Visit Obstetrics and Gynecology Pilar Marie APRN - ALEXM [address] [place] [address] [phone] [facility] [employer] MANAGER Start: 02-07-2019 Chlamydia screen Chlamydia screen [place], [place] Start: 02-07-2019 Screening for Chlamy valentino trachomatis Chlamydia screen [facility] Start: 01-29-2019 Influenza vaccination Flu vaccine (# 1) [place], [place] Start: 10-29-2017 DTaP/Tdap/Td vaccine (2 - Td or Tdap) DTaP/Tdap/Td vaccine (2 - Td or Tdap) [facility] Start: 10-29-2017 DTaP/Tdap/Td vaccine (2 - Td) DTaP/Tdap/Td vaccine (2 - Td) [place] Start: 2014 Hepatitis C screening Hepatitis C [facility] Start: 2012 COVID-19 Vaccine (1) COVID-19 Vaccin e (1) [facility] Work Phone: Start: 2011 HIV screen HIV screen [place], [place] Start: 2011 HIV screening HIV screen [facility] Start: 2011 HPV vaccine (1 - Fem shiela 3-dose series) HPV vaccine (1 - Female 3-dose series) [place], [place] Start: 2009 Varicella Vaccine (1 of 2 - 13+ 2-dose series) Varicella Vaccine (1 of 2 - 13+ 2-dose series) [place], [place] Start: 2008 COVID-19 Vaccine (1) COVID-19 Vaccin e (1) [facility] Phone: Start: 2008 Depression Screen Depression Screen [facility] Start: 2007 HPV vaccine (1 - 2-d ose series) HPV vaccine (1 - 2-dose series) [facility] Start: 2007 HPV vaccine (1 - Fem shiela 2-dose series) HPV vaccine (1 - Female 2-dose series) [facility] Phone: Start: 2001 COVID-19 Vaccine (1) COVID-19 Vaccin e (1) [facility] Start: 1997 Varicella vaccine (1 of 2 - 2-dose childhood series) Varicella vaccine (1 of 2 - 2-dose childhood series) [facility] Start: 1996 COVID-19 Vaccine (#1) COVID-19 Vacci ne (#1) [facility] Start: 1996 Hepatitis C screening Hepatitis C [facility] Work Phone: End: 12-16-2021 GLENNY Screen with [employer] Phone: Comment on above: Once for 1 Occurrenc es starting 12/16/2021 until 12/16/2021 End: 10-02-2021 Cytopathology procedure, preparation of smear, genital source PAP SMEAR Lab Routine Women's annual routine gynecological examination 1 Occurrences starting 10/02/2021 until 10/02/2021 [employer] Phone: Comment on above: 1 Occurrences starti ng 10/02/2021 until 10/02/2021 End: 01-01-2023 Cytopathology procedure, preparation of smear, genital source PAP SMEAR Lab Routine Women's annual routine gynecological examination 1 Occurrences starting 01/01/2023 until 01/01/2023 [employer] Phone: Comment on above: 1 Occurrences starti ng 01/01/2023 until 01/01/2023 End: 12-16-2021 HLA-B27 Antigen [employer] Phone: Comment on above: Once for 1 Occurrenc es starting 12/16/2021 until 12/16/2021 End: 07-06-2019 Insulin, free Insulin, free Lab Routine Once for 1 Occurrences starting 07/06/2019 until 07/06/2019 [employer] Phone: Comment on above: Once for 1 Occurrenc es starting 07/06/2019 until 07/06/2019 Insulin, free Insulin, free La b Routine 07/06/2019 9:31 AM EST [employer] Phone: End: 12-16-2021 Lyme Ab [facility] [employer] Phone: Comment on above: Once for 1 Occurrenc es starting 12/16/2021 until 12/16/2021 Immunizations Immunization Date Immunization Notes Care Provider Em de la cruz 10-30-2007 tetanus toxoid, redu katelyn diphtheria toxoid, and acellular pertussis vaccine, adsorbed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 [facility] 07/06/2019 Idiopathic insomnia Medical New Patient with Allyson [place] [facility] 07/06/2019 Obesity due to excess calories Medical N ew Patient with Allyson [place] [facility] 07/06/2019 Z68.39 - Body mass index (BM I) 39.0-39.9 adult Medical New Patient with Allyson Everett [facility] 07/06/2019 [facility] Work Phone: Evaluation note* Diagnosis Nausea vomiting and diarrhea- Primary Nausea with vomiting Generalized abdominal pain Abdominal pain, generalized documented in this encounter [employer] Phone: evaluation note* Diagnosis Women's annual routine gynecological examination documented in this encounter [facility] Phone: evaluation note* Diagnosis Women's annual routine gynecological examination Intrauterine contraceptive device threads lost, initial encounter documented in this encounter [facility]* Diagnosis Second trimester state, incidental [facility] Diagnosis S/P section Other postprocedural status Postop check Follow-up examination, following unspecified surgery Encounter for weight management [facility] Diagnosis Weight gain Other symptoms concerning nutrition, metabolism, and development Encounter for weight management [facility] Diagnosis 6 weeks follow-up S/P section Other postprocedural status [facility] Diagnosis Encounter for weight management [facility] Narrative History of Present Illness not supported for this document type No History of Present Illness [facility] Work Phone: Hospital Discharge instructions* Attachments The following attachments cannot be sent through Care Everywhere. * Abdominal Pain (Burundian) * Nausea and Vomiting ([place]undian) * Diarrhea ([place]) [facility] Instructions Instructions not supported for this document type No Instructions [facility] Work Phone: Patient problem outcome Narrative Includes: Evaluations & Outcomes for active Goals No Outcomes [facility] Work Phone: Reason for referral (narrative)No Reason for Referral [facility] Work Phone: Review of systems Narrative - Reported Review of Systems not supported for this document type No Review of Systems [facility] Work Phone: Summary Purpose Family History No Family History Records Found Description Last Updated Maternal history of rheumatoid arthritis 07/06/2019 Maternal history of rheumatologic disord er Fibromyalgia 07/06/2019 Maternal history of systemic lupus eryth ematosus 07/06/2019 Paternal history of type 1 diabetes marino itus 07/06/2019 Advance Directives No Advanced Directives Records FoundDocuments on File Type Date Recorded Patient Volunteer Coordinator Expl anation Advance Directives and Living Will Power of Sustainable Design Consultant Documents on File Type Date Recorded Patient Volunteer Coordinator Expl anation ACP-Advance Directive ACP-Power of Sustainable Design Consultant Documents on File Type Date Recorded Patient Volunteer Coordinator Expl anation Advance Directives and Living Will Power of Sustainable Design Consultant Reason for Referral No Reason for Referral [...] Depression Medical New Patient with Allyson Floyd [facility] 07/06/2019 Diabetes Risk Test Score was one score Medical New Patient with Allyson Floyd [facility] 07/06/2019 Idiopathic insomnia Medical New Patient with Allyson Floyd [facility] 07/06/2019 Obesity due to excess calories Medical N ew Patient with Allyson Floyd [facility] 07/06/2019 Z68.39 - Body mass index (BM I) 39.0-39.9 adult Medical New Patient with Allyson Floyd [facility] 07/06/2019 Findings Encounter Date Obesity due to excess calories Medical E stablished Patient with Poly Wagonerle [facility] 10/12/2019 Z68.38 - Body mass index (BM I) 38.0-38.9, adult Medical Established Patient with Poly Wagonerle [facility] 10/12/2019 L25.5 - Unspecified contact dermatitis due to plants, except food Medical Established Patient with Poly Wagonerle [facility] 09/14/2019 Obesity due to excess calories Medical E stablished Patient with Poly Salvador [facility] 09/14/2019 Z68.37 - Body mass index (BM I) 37.0-37.9, adult Medical Established Patient with Poly Wagonerle [facility] 09/14/2019 L25.5 - Unspecified contact dermatitis due to plants, except food Telemedicine with Poly Wagonerle [facility] 09/11/2019 Obesity due to excess calories Telemedicine with Poly Wagonerle [facility] 09/11/2019 Z68.37 - Body mass index (BM I) 37.0-37.9, adult Telemedicine with Poly Franco [facility] 09/11/2019 Dermatitis due to contact wi th poison spencer Telemedicine with Poly Franco [facility] 09/05/2019 Obesity due to excess calories Telemedicine with Poly Franco [facility] 09/05/2019 Z68.37 - Body mass index (BM I) 37.0-37.9, adult Telemedicine with Poly Franco [facility] 09/05/2019 Obesity due to excess calories Medical E stablished Patient with Miguel Holley [facility] 08/17/2019 Z68.37 - Body mass index (BM I) 37.0-37.9, adult Medical Established Patient with Miguel Holley [facility] 08/17/2019 Generalized anxiety disorder BH Establis hed Patient with Anhbrad Virk [employer]ER[employer]NA[employer]-S 07/06/2019 Anxiety disorder NOS Medical New Patient with Allyson [place] [facility] 07/06/2019 Depression Medical New Patient with Allyson [place] [facility] 07/06/2019 Diabetes Risk Test Score was one score Medical New Patient with Allyson [place] [facility] 07/06/2019 Idiopathic insomnia Medical New Patient with Allyson [place] [facility] 07/06/2019 Obesity due to excess calories Medical N ew Patient with Allyson [place] [facility] 07/06/2019 Z68.39 - Body mass index (BM I) 39.0-39.9 adult Medical New Patient with Allyson [place] [facility] 07/06/2019 Findings Encounter Date Obesity due to excess calories Medical E stablished Patient with Miguel Holley [facility] 08/17/2019 Z68.37 - Body mass index (BM I) 37.0-37.9, adult Medical Established Patient with Miguel Holley [facility] 08/17/2019 Generalized anxiety disorder BH Establis hed 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 07/06/2019 Anxiety disorder NOS Medical New Patient with Allyson [place] [facility] 07/06/2019 Depression Medical New Patient with Allyson [place] [facility] 07/06/2019 Diabetes Risk Test Score was one score Medical New Patient with Allyson [place] [facility] 07/06/2019 Idiopathic insomnia Medical New Patient with Allyson [place] [facility] 07/06/2019 Obesity due to excess calories Medical N ew Patient with Allyson [place] [facility] 07/06/2019 Z68.39 - Body mass index (BM I) 39.0-39.9 adult Medical New Patient with Allyson [place] [facility] 07/06/2019 Findings Encounter Date Dermatitis due to contact wi th poison spencer Telemedicine with Poly Salvador [facility] 09/05/2019 Obesity due to excess calories Telemedicine with Poly Salvador [facility] 09/05/2019 Z68.37 - Body mass index (BM I) 37.0-37.9, adult Telemedicine with Poly Franco [facility] 09/05/2019 Obesity due to excess calories Medical E stablished Patient with Miguel Holley [facility] 08/17/2019 Z68.37 - Body mass index (BM I) 37.0-37.9, adult Medical Established Patient with Miguel [facility] [facility] Generalized anxiety disorder BH Establis hed Patient with Anh VIDAL 07/06/2019 Anxiety disorder NOS Medical New Patient with Allyson Floyd [facility] 07/06/2019 Depression Medical New Patient with Allyson Nye [facility] 07/06/2019 Diabetes Risk Test Score was one score Medical New Patient with Allyson Floyd [facility] 07/06/2019 Idiopathic insomnia Medical New Patient with Allyson Floyd [facility] 07/06/2019 Obesity due to excess calories Medical N ew Patient with Allyson Everett [facility] 07/06/2019 Z68.39 - Body mass index (BM I) 39.0-39.9 adult Medical New Patient with Allyson Floyd [facility] 07/06/2019 Findings Encounter Date L25.5 - Unspecified contact dermatitis due to plants, except food Telemedicine with Poly Franco [facility] 09/11/2019 Obesity due to excess calories Telemedicine with Poly Franco [facility] 09/11/2019 Z68.37 - Body mass index (BM I) 37.0-37.9, adult Telemedicine with Poly Salvador [facility] 09/11/2019 Dermatitis due to contact wi th poison spencer Telemedicine with Poly Salvador [facility] 09/05/2019 Obesity due to excess calories Telemedicine with Poly Salvador [facility] 09/05/2019 Z68.37 - Body mass index (BM I) 37.0-37.9, adult Telemedicine with Poly Salvador [facility] 09/05/2019 Obesity due to excess calories Medical E stablished Patient with Miguel Holley [facility] 08/17/2019 Z68.37 - Body mass index (BM I) 37.0-37.9, adult Medical Established Patient with Miguel Holley [facility] 08/17/2019 Generalized anxiety disorder BH Establis hed Patient with Anh RODAS-[facility] 07/06/2019 Anxiety disorder NOS Medical New Patient with Allyson Floyd [facility] 07/06/2019 Depression Medical New Patient with Allyson Floyd [facility] 07/06/2019 Diabetes Risk Test Score was one score Medical New Patient with Allyson Floyd [facility] 07/06/2019 Idiopathic insomnia Medical New Patient with Allyson Floyd [facility] 07/06/2019 Obesity due to excess calories Medical N ew Patient with Allyson Nye [facility] 07/06/2019 Z68.39 - Body mass index (BM I) 39.0-39.9 adult Medical New Patient with Allyson Floyd [facility] 07/06/2019 Findings Encounter Date L25.5 - Unspecified contact dermatitis due to plants, except food Medical Established Patient with Poly Wagonerle [facility] 09/14/2019 Obesity due to excess calories Medical E stablished Patient with Poly Salvador [facility] 09/14/2019 Z68.37 - Body mass index (BM I) 37.0-37.9, adult [facility] L25.5 - Unspecified contact dermatitis due to plants, except food Telemedicine with Poly [facility] 09/11/2019 Obesity due to excess calories Telemedicine with Poly [facility] 09/11/2019 Z68.37 - Body mass index (BM I) 37.0-37.9, adult Telemedicine with Poly [facility] 09/11/2019 Dermatitis due to contact wi th poison sepncer Telemedicine with Poly [facility] 09/05/2019 Obesity due to excess calories Telemedicine with Poly Wagonerle [facility] 09/05/2019 Z68.37 - Body mass index (BM I) 37.0-37.9, adult Telemedicine with Poly Salvador [facility] 09/05/2019 Obesity due to excess calories Medical E stablished Patient with Miguel Holley [facility] 08/17/2019 Z68.37 - Body mass index (BM I) 37.0-37.9, adult Medical Established Patient with Miguel Leydi [facility] 08/17/2019 Generalized anxiety disorder BH Establis hed Patient with Anh Bartonkarlos [facility] 07/06/2019 Anxiety disorder NOS Medical New Patient with Allyson Floyd [facility] 07/06/2019 Depression Medical New Patient with Allyson Floyd [facility] 07/06/2019 Diabetes Risk Test Score was one score Medical New Patient with Allyson Floyd [facility] 07/06/2019 Idiopathic insomnia Medical New Patient with Allyson Floyd [facility] 07/06/2019 Obesity due to excess calories Medical N ew Patient with Allyson Floyd [facility] 07/06/2019 Z68.39 - Body mass index (BM I) 39.0-39.9 adult Medical New Patient with Allyson Floyd [facility] 07/06/2019 Findings Encounter Date Obesity due to excess calories Medical E stablished Patient with Poly Wagonerle [facility] 11/06/2019 Z68.36 - Body mass index (BM I) 36.0-36.9, adult Medical Established Patient with Poly Wagonerle [facility] 11/06/2019 Obesity due to excess calories Medical E stablished Patient with Poly Wagonerle [facility] 10/12/2019 Z68.38 - Body mass index (BM I) 38.0-38.9, adult Medical Established Patient with Poly Wagonerle [facility] 10/12/2019 L25.5 - Unspecified contact dermatitis due to plants, except food Medical Established Patient with Poly Wagonerle [facility] 09/14/2019 Obesity due to excess calories Medical E stablished Patient with Poly Salvador [facility] 09/14/2019 Z68.37 - Body mass index (BM I) 37.0-37.9, adult Medical Established Patient with Poly Wagonerle [facility] 09/14/2019 L25.5 - Unspecified contact dermatitis due to plants, except food Telemedicine with Polykamryn Wagonerle [facility] 09/11/2019 Obesity due to excess calories Telemedicine with Poly Wagonerle [facility] 09/11/2019 Z68.37 - Body mass index (BM I) 37.0-37.9, adult Telemedicine with Poly Salvador [facility] 09/11/2019 Dermatitis due to contact wi th poison spencer Telemedicine with Poly Wagonerle [facility] 09/05/2019 Obesity due to excess calories Telemedicine with Poly Salvador [facility] 09/05/2019 Z68.37 - Body mass index (BM I) 37.0-37.9, adult Telemedicine with Poly Salvador [facility] 09/05/2019 Obesity due to excess calories Medical E stablished Patient with Miguel Holley [facility] 08/17/2019 Z68.37 - Body mass index (BM I) 37.0-37.9, adult Medical Established Patient with Miguel Leydi [facility] 08/17/2019 Generalized anxiety disorder BH Establis hed Patient with Anh VIDAL 07/06/2019 Anxiety disorder NOS Medical New Patient with Allyson Floyd [facility] 07/06/2019 Depression Medical New Patient with Allyson Floyd [facility] 07/06/2019 Diabetes Risk Test Score was one score Medical New Patient with Allyson Floyd [facility] 07/06/2019 Idiopathic insomnia Medical New Patient with Allyson Floyd [facility] 07/06/2019 Obesity due to excess calories Medical N ew Patient with Allyson Floyd [facility] 07/06/2019 Z68.39 - Body mass index (BM I) 39.0-39.9 adult Medical New Patient with Allyson Floyd [facility] 07/06/2019 Findings Encounter Date Obesity due to excess calories Medical E stablished Patient with Poly Wagonerle [facility] 12/05/2019 R21 - Rash and other nonspec [facility] skin eruption Medical Established Patient with Poly Salvador [facility] 12/05/2019 Z68.35 - Body mass index (BM I) 35.0-35.9, adult Medical Established Patient with Poly Wagonerle [facility] 12/05/2019 Obesity due to excess calories Medical E stablished Patient with Poly Salvador [facility] 11/06/2019 Z68.36 - Body mass index (BM I) 36.0-36.9, adult Medical Established Patient with Poly Salvador [facility] 11/06/2019 Obesity due to excess calories Medical E stablished Patient with Poly Salvador [facility] 10/12/2019 Z68.38 - Body mass index (BM I) 38.0-38.9, adult Medical Established Patient with Poly Salvador [facility] 10/12/2019 L25.5 - Unspecified contact dermatitis due to plants, except food Medical Established Patient with Poly Salvador [facility] 09/14/2019 Obesity due to excess calories Medical E stablished Patient with Poly Salvador [facility] 09/14/2019 Z68.37 - Body mass index (BM I) 37.0-37.9, adult Medical Established Patient with Poly Salvador [facility] 09/14/2019 L25.5 - Unspecified contact dermatitis due to plants, except food Telemedicine with Poly Salvador [facility] 09/11/2019 Obesity due to excess calories Telemedicine with Poly Salvador [facility] 09/11/2019 Z68.37 - Body mass index (BM I) 37.0-37.9, adult Telemedicine with Poly Salvador [facility] 09/11/2019 Dermatitis due to contact wi th poison spencer Telemedicine with Polykamryn Wagonerle [facility] 09/05/2019 Obesity due to excess calories Telemedicine with Poly Salvador [facility] 09/05/2019 Z68.37 - Body mass index (BM I) 37.0-37.9, adult Telemedicine with Poly Salvador [facility] 09/05/2019 Obesity due to excess calories Medical E stablished Patient with Miguel Holley [facility] 08/17/2019 Z68.37 - Body mass index (BM I) 37.0-37.9, adult Medical Established Patient with Miguel Holley [facility] 08/17/2019 Generalized anxiety disorder BH Establis hed Patient with Anh VIDAL 07/06/2019 Anxiety disorder NOS Medical New Patient with Allyson Floyd [facility] 07/06/2019 Depression Medical New Patient with Allyson Nye [facility] 07/06/2019 Diabetes Risk Test Score was one score Medical New Patient with Allyson Nye [facility] 07/06/2019 Idiopathic insomnia Medical New Patient with Allyson Nye [facility] 07/06/2019 Obesity due to excess calories Medical N ew Patient with Allyson Everett [facility] 07/06/2019 Z68.39 - Body mass index (BM I) 39.0-39.9 adult Medical New Patient with Allyson Nye [facility] 07/06/2019 Findings Encounter Date Obesity due to excess calories Medical E stablished Patient with Miguel Holley [facility] 03/05/2020 Z68.37 - Body mass index [BM I] 37.0-37.9, adult Medical Established Patient with Miguel Holley [facility] 03/05/2020 Obesity due to excess calories Medical E stablished Patient with Poly Wagonerle [facility] 12/05/2019 R21 - [facility] other [facility]pec [facility] Established Patient with Poly Salvador [facility] 12/05/2019 Z68.35 - Body mass index (BM I) 35.0-35.9, adult Medical Established Patient with Poly Salvador [facility] 12/05/2019 Obesity due to excess calories Medical E stablished Patient with Poly Salvador [facility] 11/06/2019 Z68.36 - Body mass index (BM I) 36.0-36.9, adult Medical Established Patient with Poly Salvador [facility] 11/06/2019 Obesity due to excess calories Medical E stablished Patient with Poly Salvador [facility] 10/12/2019 Z68.38 - Body mass index (BM I) 38.0-38.9, adult Medical Established Patient with Polykamryn Wagonerle [facility] 10/12/2019 L25.5 - Unspecified contact dermatitis due to plants, except food Medical Established Patient with Poly Wagonerle [facility] 09/14/2019 Obesity due to excess calories Medical E stablished Patient with Polykamryn Wagonerle [facility] 09/14/2019 Z68.37 - Body mass index (BM I) 37.0-37.9, adult Medical Established Patient with Poly Wagonerle [facility] 09/14/2019 L25.5 - Unspecified contact dermatitis due to plants, except food Telemedicine with Poly Wagonerle [facility] 09/11/2019 Obesity due to excess calories Telemedicine with Poly Wagonerle [facility] 09/11/2019 Z68.37 - Body mass index (BM I) 37.0-37.9, adult Telemedicine with Poly Franco [facility] 09/11/2019 Dermatitis due to contact wi th poison spencer Telemedicine with Poly rFanco [facility] 09/05/2019 Obesity due to excess calories Telemedicine with Poly Wagonerle [facility] 09/05/2019 Z68.37 - Body mass index (BM I) 37.0-37.9, adult Telemedicine with Poly Franco [facility] 09/05/2019 Obesity due to excess calories Medical E stablished Patient with Miguelcristal Holley [facility] 08/17/2019 Z68.37 - Body mass index (BM I) 37.0-37.9, adult Medical Established Patient with Miguelcristal Holley [facility] 08/17/2019 Generalized anxiety disorder BH Establis hed Patient with Anh VIDAL 07/06/2019 Anxiety disorder NOS Medical New Patient with Allyson [place] [facility] 07/06/2019 Depression Medical New Patient with Allyson [place] [facility] 07/06/2019 Diabetes Risk Test Score was one score Medical New Patient with Allyson [place] [facility] 07/06/2019 Idiopathic insomnia Medical New Patient with Allyson Everett [facility] 07/06/2019 Obesity due to excess calories Medical N ew Patient with Allyson Everett [facility] 07/06/2019 Z68.39 - Body mass index (BM I) 39.0-39.9 adult Medical New Patient with Allyson [place] [facility] 07/06/2019 Findings Encounter Date Cough Telemedicine Establi sted Patient with Miguel Leydi [facility] 03/19/2020 Exposure to a viral disease Telemedicine Establisted Patient with Miguel Holley [facility] 03/19/2020 Obesity due to excess calories Telemedic ine Establisted Patient with Miguel Holley [facility] 03/19/2020 Z68.37 - Body mass index [BM I] 37.0-37.9, adult Telemedicine Establisted Patient with Miguel Holley [facility] 03/19/2020 Obesity due to excess calories Medical E stablished Patient with Miguel Holley [facility] 03/05/2020 Z68.37 - Body mass index [BM I] 37.0-37.9, adult Medical Established Patient with Miguel Holley [facility] 03/05/2020 Obesity due to excess calories Medical E stablished Patient with Poly Wagonerle [facility] 12/05/2019 R21 - Rash and other nonspec [facility] Medical Established Patient with Poly Wagonerle [facility] 12/05/2019 Z68.35 - Body mass index (BM I) 35.0-35.9, adult Medical Established Patient with Poly Wagonerle [facility] 12/05/2019 Obesity due to excess calories Medical E stablished Patient with Poly Salvador [facility] 11/06/2019 Z68.36 - Body mass index (BM I) 36.0-36.9, adult Medical Established Patient with Polykamryn Wagonerle [facility] 11/06/2019 Obesity due to excess calories Medical E stablished Patient with Poly Salvador [facility] 10/12/2019 Z68.38 - Body mass index (BM I) 38.0-38.9, adult Medical Established Patient with Poly Salvador [facility] 10/12/2019 L25.5 - Unspecified contact dermatitis due to plants, except food Medical Established Patient with Poly Salvador [facility] 09/14/2019 Obesity due to excess calories Medical E stablished Patient with Poly Salvador [facility] 09/14/2019 Z68.37 - Body mass index (BM I) 37.0-37.9, adult Medical Established Patient with Poly Salvador [facility] 09/14/2019 L25.5 - Unspecified contact dermatitis due to plants, except food Telemedicine with Poly Salvador [facility] 09/11/2019 Obesity due to excess calories Telemedicine with Poly Salvador [facility] 09/11/2019 Z68.37 - Body mass index (BM I) 37.0-37.9, adult Telemedicine with Poly Salvador [facility] 09/11/2019 Dermatitis due to contact wi th poison spencer Telemedicine with Poly Franco [facility] 09/05/2019 Obesity due to excess calories Telemedicine with Poly Franco [facility] 09/05/2019 Z68.37 - Body mass index (BM I) 37.0-37.9, adult Telemedicine with Poly Franco [facility] 09/05/2019 Obesity due to excess calories Medical E stablished Patient with Miguel Holley [facility] 08/17/2019 Z68.37 - Body mass index (BM I) 37.0-37.9, adult Medical Established Patient with Miguel Holley [facility] 08/17/2019 Generalized anxiety disorder BH Establis hed Patient with Anh VIDAL 07/06/2019 Anxiety disorder NOS Medical New Patient with Allyson Floyd [facility] 07/06/2019 Depression Medical New Patient with Allyson Floyd [facility] 07/06/2019 Diabetes Risk Test Score was one score Medical New Patient with Allyson Floyd [facility] 07/06/2019 Idiopathic insomnia Medical New Patient with Allyson Floyd C[facility] 07/06/2019 Obesity due to excess calories Medical N ew Patient with Allyson Floyd [facility] 07/06/2019 Z68.39 - Body mass index (BM I) 39.0-39.9 adult Medical New Patient with Allyson Floyd [facility] 07/06/2019 Diagnosis COVID-19 Fatty liver Other chronic [...] Everywhere. * Coronavirus Disease (COVID-19): General Info (Burundian) documented in this encounter Additional Source Comments INFORMATION SOURCE (unrecogn ized section and content) DATE CREATED AUTHOR 11/24/2017 [facility] DATE CREATED AUTHOR AUTHOR'S ORGANIZ ATION 08/26/2018 [facility] DATE CREATED AUTHOR AUTHOR'S ORGANIZ ATION 09/24/2020 [facility] DATE CREATED AUTHOR AUTHOR'S ORGANIZ ATION 05/14/2023 [facility] DATE CREATED AUTHOR AUTHOR'S ORGANIZ ATION 08/06/2024 [facility] d[facility] Specialists EPIC Evaluations & Outcomes (unre [...] US TRANSVAGINAL, NON OB Dana Akins MD [address] [place] [address] [facility] Ul[facility]ound [address] [place] [address] Reason Comments Emesis multiple episodes si nce 1999 Diarrhea x12-13 since 1999 Abdominal Pain mid upper abd Reason Comments Routine Visit Reason Comments Post-op Visit Weight Management Reason Comments Weight Management Pt present for Adipe x #2 Reason Comments Care Pt present today for 6 week post visit. S/p c/s on 01/03/2024. Reason Comments Weight Management Ordered Prescriptions (unrec ognized section and content) [...] Care Teams (unrecognized sec tion and content) Valve Pipe Irrigator Relationship Specialty Start Date End Date Miguel Holley, OPTICAL INSTRUMENT SPECIALIST [facility] PCP - General Family Medicine 04/08/20 Valve Pipe Irrigator Relationship Specialty Start Date End Date Miguel Holley OPTICAL INSTRUMENT SPECIALIST [facility] PCP - General Family Medicine 04/08/20 Valve Pipe Irrigator Relationship Specialty Start Date End Date Miguel Holley OPTICAL INSTRUMENT SPECIALIST [facility] PCP - General Family Medicine 04/08/20 FOR [...] BE BASED ON THE PRIMARY CLINICAL RECORDS. [facility]. provides no warranty or guarantee of the accuracy or completeness of information in this document.
[2024-08-07 11:09] LABS: Basophils Percent Auto 0.2 % (0.2-2.0); Eosinophils Absolute Auto 0.1 10^3/uL (0.0-0.7); Hematocrit 36.9 % (36.0-48.0); Hemoglobin 12.5 g/dL (12.0-16.0); Immature Granulocytes Abs Auto 0.04 10^3/uL (0.00-0.03); Immature Granulocytes Pct Auto 0.4 % (0.0-0.5); Lymphocytes Absolute Auto 2.2 10^3/uL (1.2-3.8); Lymphocytes Percent Auto 24.1 % (20.5-60.0); Mean Corpuscular HGB Conc 33.9 g/dL (29.9-35.2); Mean Corpuscular Hemoglobin 27.7 pg (26.7-34.0); Mean Corpuscular Volume 81.6 fL (81.0-99.0); Mean Platelet Volume 11.5 fL (9.5-13.5); Monocytes Absolute Auto 0.3 10^3/uL (0.3-0.8); Monocytes Percent Auto 3.2 % (1.7-12.0); Neutrophils Absolute Auto 6.6 10^3/uL (1.4-6.5); Neutrophils Percent Auto 71.1 % (43.0-75.0); Platelet Count 165 10^3/uL (150-450); Red Blood Count 4.52 10^6/uL (4.20-5.40); Red Cell Distribution Width 12.8 % (11.0-15.0); White Blood Count 9.3 10^3/uL (4.0-11.0)
[2024-08-07 11:26] LABS: BOX Test Reference Lab UNITY; BOX Test Sent Out UNITY
[2024-08-07 11:29] LABS: Amphetamine Screen Urine NEGATIVE (NEGATIVE); Barbiturates Screen Urine NEGATIVE (NEGATIVE); Benzodiazepines Screen Urine NEGATIVE (NEGATIVE); Buprenorphine Screen Urine NEGATIVE (NEGATIVE); Cannabinoid Screen Urine NEGATIVE (NEGATIVE); Cocaine Screen Urine NEGATIVE (NEGATIVE); Methadone Screen Urine NEGATIVE (NEGATIVE); Methamphetamines Screen Urine NEGATIVE (NEGATIVE); Opiate Screen Urine NEGATIVE (NEGATIVE); Oxycodone Screen Urine NEGATIVE (NEGATIVE); Phencyclidine Screen Urine NEGATIVE (NEGATIVE); Tricyclic Antidepressant Urine NEGATIVE (NEGATIVE)
[2024-08-07 12:43] LABS: Estimated Average Glucose 105 mg/dL; Glycohemoglobin A1C 5.3 % (4.5-6.2)
[2024-08-08 06:07] LABS: HBsAg Screen Negative (Negative); HCV Ab Non Reactive (Non Reactive); HIV Ab/p24 Ag Screen Non Reactive (Non Reactive)
[2024-08-08 07:08] LABS: Rubella Antibodies, IgG 5.39 index (Immune >0.99)
[2024-08-08 13:10] LABS: Rapid Plasma Reagin, Quant Non Reactive titer (NonRea<1:1)
== END 2024-08-07 10:24 | disposition home or self-care (01) ==
LOC: LAB 10:27
PROVIDERS: Visit Provider Obstetrics & Gynecology
DX: Z34.90 Encounter for supervision of normal pregnancy, unspecified, unspecified trimester (principal); N92.6 Irregular menstruation, unspecified
CPT/HCPCS: 36415; 80307; 83036; 85025; 86592; 86762; 86803; 86850; 86900; 86901; 87086; 87340; 87389

== ENCOUNTER 2024-09-25 09:33 | Outpatient (OUT) | payer MEDICAID, SELFPAY | END 2024-09-25 09:34 | disposition home or self-care (01) | LOC: US 09:36 | PROVIDERS: Visit Provider Obstetrics & Gynecology | DX: O46.92 Antepartum hemorrhage, unspecified, second trimester (principal); Z3A.16 16 weeks gestation of pregnancy | CPT/HCPCS: 76817 ==

== ENCOUNTER 2024-09-26 12:53 | Outpatient (REF) | payer MEDICAID, SELFPAY ==
[2024-09-28 10:09] LABS: Age Gdln ACOG Testing Note (.); IGP, rfx Aptima HPV ASCU Note (.)
== END 2024-09-26 12:54 | disposition home or self-care (01) ==
LOC: LAB 12:53
PROVIDERS: Visit Provider Obstetrics & Gynecology
DX: Z01.419 Encounter for gynecological examination (general) (routine) without abnormal findings (principal)
CPT/HCPCS: 88175

== ENCOUNTER 2024-12-05 09:43 | Outpatient (OUT) | payer MEDICAID, SELFPAY ==
--- OUTSIDE RECORDS SUMMARY | 2024-11-22 13:50 | XMS_ITS | Encounter Summary ---
Author Organization [facility] Address [address] [place] [address] Care Team Providers Care Brick Shader Name Role Phone Unavailable Primary Care Provider Unavailabl e Reason for Visit * Reason Comments Routine Visit Encounter Details Date Type Department Care Team (Late st Contact Info) Description 11/22/2024 1:50 PM EDT Routine [facility] [address] [place] [address] Aditya Cervantes, DO [address] [place], [facility]11 Dizziness (Primary Dx); 25 weeks gestation of ([facility]); Second trimester ([facility]); History of gestational diabetes; Diabetes mellitus screening Social History Tobacco Use Types Packs/Day Years Used Date Smoking Tobacco: Never Assessed Estimated Date of Delivery Comme nts Yes 03/06/2025 Based on Ultraso und Sex and Gender Information Value Date Recorded Sex Assigned at Not on file Legal Sex Female 3:04 PM EDT Gender Identity Not on file Sexual Orientation Not on file documented as of this encounter Last Filed Vital Signs Vital Sign Reading Time Taken Comments Blood Pressure 128/78 11/22/2024 2:29 PM EDT Pulse - - Temperature - - Respiratory Rate - - Oxygen Saturation - - Inhaled Oxygen Concentration - - Weight 123 kg (271 lb 12.8 oz) 11/22/2024 2:29 P M EDT Height - - Body Mass Index 42.57 01/10/2024 8:56 AM EDT documented in this encounter Progress Notes * CAYLA Kwok - 11/22/2024 1:50 PM EDT Reason for Appointment: Patient ID: Estefania Cedeño is a 29 y.o. female who presents for Routine Visit Patient presents today for Return OB appointment. MEDICATIONS Current Outpatient Medications Medication Instructions aspirin 81 mg, Daily Vit-Fe Fumarate-FA (PNV Plus Multivitamin) 27-1 MG tablet 1 tablet, Oral, Daily ALLERGIES Allergies Allergen Reactions Triamcinolone Other and Hives Had to have reconstructive surgery. Dimpling of the skin Other NUTS PROBLEMS Active Ambulatory Problems Diagnosis Date Noted No Active Ambulatory Problems Resolved Ambulatory Problems Diagnosis Date Noted Excessive growth affecting management of mother, antepartum ([facility]) 12/06/2023 Third trimester ([facility]) 12/06/2023 No Additional Past Medical History HISTORY [...] reviewed. Vitals: Estimated body mass index is 42.57 kg/m² as calculated from the following: Height as of 01/10/24: 5' 7 . Weight as of this encounter: 271 lb 12.8 oz. BP: 128/78 No LMP recorded. Patient is . ASSESSMENT & PLAN ICD-10-CM 1. 25 weeks gestation of ([facility]) Z3A.25 POCT urinalysis dipstick manually resulted 2. Second trimester ([facility]) Z34.92 POCT urinalysis dipstick manually resulted 3. History of gestational diabetes Z86.32 POCT urinalysis dipstick manually resulted 4. Diabetes mellitus screening Z13.1 CBC Glucose tolerance, 1 hour CBC Glucose tolerance, 1 hour Return OB: Patient presents today for a routine obstetrics appointment. Patient is currently 25w1d . Patient states she is doing well but has complaints of being tired due to current . Patient has verbalizes frequent movement. labor precautions was discussed/given and patient was instructed to perform kick counts three times a day. Orders Placed This Encounter Procedures CBC Glucose tolerance, 1 hour POCT urinalysis dipstick manually resulted Patient continues to have dizziness post prandial we will check blood pressure and ekg Follow Up: Patient is to return to office in 2 week for routine OB appointment. Documented by CAYLA Kwok on behalf of: Aditya Cervantes DO documented in this encounter Plan of Treatment Upcoming Encounters Date Type Department Care Team (Late st Contact Info) Description 12/13/2024 1:40 PM EDT Routine [facility] [address] [address] Aditya Cervantes DO [address] [place] [address] Scheduled Orders Name Type Priority Associated Diagnoses Orde r Schedule CBC Lab Routine Diabetes mellitus screening Expected: 11/22/2024 (Approximate), Expires: 11/22/2025 Glucose tolerance, 1 hour Lab Routine Diabetes mellitus screening Expected: 11/22/2024 (Approximate), Expires: 11/22/2025 ECG 12 lead unit performed ECG Routine Dizziness Expected: 11/22/2024 (Approximate), Expires: 11/22/2025 documented as of this encounter Procedures Procedure Name Priority Date/Time Associated Diagnosis Comments POCT URINALYSIS DIPSTICK Routine 11/22/2024 2:36 PM EDT 25 weeks gestation of ([facility]) Second trimester ([facility]) History of gestational diabetes documented in this encounter Results * (ABNORMAL) POCT urinalysis dipstick manually resulted (11/22/2024 2:36 PM EDT) Color, UA Yellow Clarity, UA Clear Glucose, UA Negative Negative - 2000(110) ++++ mg/dL Bilirubin, UA Negative Negative - 4(70) +++ mg/dL Ketones, UA Positive Negative - 160(16) ++++ mg/dL Comment:trace Spec Grav, UA 1.025 1 - 1.03 Blood, UA Negative Negative - 50 Chuy/mcL pH, UA 6.5 5 - 9 Protein, UA Negative Negative - 2000(20) ++++ mg/dL Urobilinogen, UA 0.2 0.2 - 12 mg/dL Leukocytes, UA Negative Negative - 500+++ Sadi/mcL Nitrite, UA Negative Negative - Positive Urine 11/22/2024 2:36 PM EDT Aditya Cervantes DO POINT OF CARE TEST ENTER/EDIT OR DERABLES Final Result documented in this encounter Visit Diagnoses Diagnosis Dizziness- Primary Dizziness and giddiness 25 weeks gestation of ([facility]) Second trimester ([facility]) state, incidental History of gestational diabetes Personal history of other genital system and obstetric disorders Diabetes mellitus screening Screening for diabetes mellitus documented in this encounter
--- OUTSIDE RECORDS SUMMARY | 2024-11-22 13:52 | XMS_ITS ---
Author Name Auto Generated Organization OHIP Care Team Providers Care Equipment Inspector Name Role Phone BRUCE CARD Attending Unavailable [...] DATE TYPE CONDITION / CODE ATTENDING STATUS [facility] 10/17/2024 Admitting diagnosis 17 weeks ges tation of / Z3A.17(ICD-10) NA [facility] PROCEDURES No Procedure Records Found RESULTS AFP, MATERNAL Collected: 10/17/2024 10:23 AM Status: F Source: [facility] TYPE CODE TESTS RESULT OUT OF RANGE [...] Cutoff Neural Tube Defects Risks 1:1030 < 1:94020 1:250 Comments: The risk of an open neural tube defect is less than the screening cut-off. This test was developed and its performance characteristics determined by [facility]. It has not been cleared or approved [...] Sanchez LAB MTRACE(LOINC) Maternal Race Nonblack [facility] Ins Req Matern Diab No LAB SMOKE(LOINC) Smoking Unknown LAB FHXNTD(LOINC) Family History No [facility]PC[facility] Specimen See Note Result Comment: (NOTE) Initial sample Performed By: [facility] [address] [place] [address] Sole Stitcher Hand: Pranay Rousseau MD, PhD CLIA Number: [id number] Performed By: #### AAFPM ### # [facility] [address] [place] [address] Learning Support Specialist: Dallas Xiong MD US OB 14+ WEEKS ANATOMY SCAN Observed: 0 09/26/2024 10:14 AM Status: F Source: [facility] EPIC Order Comment: US OB ANATOMY [...] II, MD, PHD at 25-Oct-2024 11:18:35 PM [facility] US OB TRANSVAGINAL Observed: 08/04/2024 8:33 AM Status: F Source: [facility] Order Comment: US OB [...] II, MD, PHD at 05-Aug-2024 09:13:53 AM [facility] ALLERGIES No Allergies Records Found ENCOUNTERS ADMIT/DISCHARGE ACCOUNT NUMBER ADMITTING ENCOUNTER CLASS LOCATION SOURCE 11/22/2024/ 5 [id number] Ambulatory Building:[facility] 10/25/2024/ 5 [id number] Ambulatory Building:[facility] 10/25/2024/ 5 [id number] Ambulatory Building:[facility] 10/17/2024/ 5 [id number] Ambulatory Building:[facility] 09/26/2024/ 5 [id number] Ambulatory Building:[facility] 08/29/2024/ 5 [id number] Ambulatory Building:[facility] 08/04/2024/ 5 [id number] Ambulatory Building:[facility] 08/04/2024/ 5 [id number] Ambulatory Building:[facility] 06/14/2024/ 5 [id number] Ambulatory Building:[facility] 05/17/2024/ 4 [id number] Ambulatory Building:[facility] 04/18/2024/ 4 [id number] Ambulatory Building:[facility] 02/21/2024/ 4 [id number] Ambulatory Building:[facility] 01/10/2024/ 4 [id number] Ambulatory Building:[facility] 12/30/2023/ 4 [id number] Ambulatory Building:[facility] 12/23/2023/ 4 [id number] Ambulatory Building:[facility] 12/15/2023/ 4 [id number] Ambulatory Building:[facility] PAYERS ENCOUNTER GUARANTOR PAYER SUBSCRIBER SOURCE 11/22/2024 TARA HORVATHB: [address] [address]Bwa: () Primary Insurance:[employer] MEDICAID [facility] Number: [id number] ve Date:2023-09-29 TARA HORVATHB: [id number] [place] [id number] [facility] 10/25/2024 TARA HORVATHB: [id number] [address] [address]Hqd: (HP) Primary Insurance:[employer] MEDICAID [facility] [id number] ve Date:2023-09-29 TARA HORVATHB: [id number] [address] [facility] 10/25/2024 TARA HORVATHB: [address] [address]Akj: (HP) Primary Insurance:[employer] MEDICAID [facility] Number: [id number] ve Date:2023-09-29 TARA HORVATHB: [id number] [address] [address] [facility] 10/17/2024 TARA HORVATHB: [address] [address]Fgw: (HP) Primary Insurance:HUMANA MEDICAID [facility] Number: [id number] ve Date:[id number] [address]QB: TARA HORVATHB: [id number] [address] [address]Bfs: (HP) [facility] 09/26/2024 TARA HORVATHB: [address] [address]Nkg: (HP) Primary Insurance:[employer] MEDICAID [facility] Number[facility] [id number] ve Date:2023-09-29 TARA HORVATHB: [id number] [address] [address] [facility] 08/29/2024 TARA HORVATHB: [address] [address]Dqs: (HP) Primary Insurance:[employer] MEDICAID [facility] Number: [id number] ve Date:2023-09-29 TARA HORVATHB: [id number] [address] [address] [facility] 08/04/2024 TARA HORVATHB: [address] [address]Fdv: (HP) Primary Insurance:[employer] MEDICAID [facility] Number: [id number] ve Date:2023-09-29 TARA FLOREZDOB: [id number] [address] [address] [facility] 08/04/2024 TARA FLOREZDOB: [address] [address]Ulp: (HP) Primary Insurance:[employer] MEDICAID [facility] Number: [id number] ve Date:2023-09-29 TARA FLOREZDOB: [id number] [address] [address] [facility] 06/14/2024 TARA FLOREZDOB: [address] [address]Meh: (HP) Primary Insurance:[employer] MEDICAID [facility] Number: [id number] ve Date:2023-09-29 TARA FLOREZDOB: [id number] [address] [address] [facility] 05/17/2024 TARA FLOREZDOB: [address] [address]Cam: (HP) Primary Insurance:[employer] MEDICAID [facility] Number: [id number] ve Date:2023-09-29 TARA FLOREZDOB: [id number] [address] [address] [facility] 04/18/2024 TARA FLOREZDOB: [address] [address]Ctm: (HP) Primary Insurance:[employer] MEDICAID [facility] Number: [id number] ve Date:2023-09-29 TARA FLOREZDOB: [id number] [address] [place] [address] [facility] 02/21/2024 TARA VIKKIDOB: [facility] [address], [place] [address]Pou: (HP) Primary Insurance:[employer] MEDICAID [facility] Number: [id number] ve Date:2023-09-29 TARA ARTUROGELDOB: [id number] [facility] [address] [place] [address] [facility]IC 01/10/2024 TARA ARTUROGELDOB: [facility] [address], [place] [address]Iwq: (HP) Primary Insurance:[employer] MEDICAID [facility] Number: [id number] ve Date:2023-09-29 TARA VIKKIDOB: [id number] [facility] [address] [place] [address] [facility] EP[facility] 12/30/2023 TARA VIKKIDOB: [facility] [address], [place] [address]Zti: (HP) Primary Insurance:[employer] MEDICAID [facility] Number: [id number] ve Date:2023-09-29 TARA ARTUROGELDOB: [id number] [facility] [address] [place] [address] [facility] EP[facility] 12/23/2023 TARA ARTUROGELDOB: [facility] [address], [place] [address]Ycd: (HP) Primary Insurance:[employer] MEDICAID [facility] Number: [id number] ve Date:2023-09-29 TARA ARTUROGELDOB: [id number] [facility] [address] [place] [address] [facility] 12/15/2023 TARAARCENIO FLOREZDOB: [address] [address]Wul: () Primary Insurance:HUMANA MyAGENTS MEDICAID [facility] Number: [id number] ve Date:2023-09-29 TARA VIKKIDOB: [id number] [address] [address] [facility] EPIC
--- OUTSIDE RECORDS SUMMARY | 2024-12-05 09:47 | XMS_ITS | Encounter Summary ---
Author Organization [facility] Address [address] [place] [address] Care Team Providers Care Supervisor Assembly Room Name Role Phone Unavailable Primary Care Provider Unavailabl e Encounter Details Date Type Department Care Team (Late st Contact Info) Description 12/14/2023 Abstract [facility] OB [address] [place] [address] Trini Aquino LPN [address] [facility] [place] [facility] Social History Tobacco Use Types Packs/Day Years Used Date Smoking Tobacco: Never Assessed Comments Yes Sex and Gender Information Value Date Recorded Sex Assigned at Not on file Legal Sex Female 3:04 PM EDT Gender Identity Not on file Sexual Orientation Not on file documented as of this encounter Plan of Treatment Upcoming Encounters Date Type Department Care Team (Late st Contact Info) Description 12/13/2024 1:40 PM EDT Routine [facility] OB [address] [place] [address] Aditya Cervantes DO [address] [facility] Mer[place], [facility] documented as of this encounter Visit Diagnoses Not on filedocumented in this encounter
--- OUTSIDE RECORDS SUMMARY | 2024-12-05 09:47 | XMS_ITS | Encounter Summary ---
Author Organization [facility] Address [address] [place] [address] Care Team Providers Care Souvenir And Novelty Maker Name Role Phone Unavailable Primary Care Provider Unavailabl e Encounter Details Date Type Department Care Team (Late st Contact Info) Description 10/31/2024 Abstract [facility] OB [address] [facility] [place] [address] Aditya Cervantes [facility] [place], [facility] Social History Tobacco Use Types Packs/Day Years [...] Description 12/13/2024 1:40 PM EDT Routine [facility] OB [address] [place] [address] Aditya Cervantes [facility] [place], [place] [address] documented as of this encounter Visit Diagnoses Not on filedocumented in this encounter
--- OUTSIDE RECORDS SUMMARY | 2024-12-05 09:47 | XMS_ITS | Encounter Summary ---
Author Organization [facility] Address [address] [place] [address] Care Team Providers Care Chief Investment Officer Name Role Phone Unavailable Primary Care Provider Unavailabl e Encounter Details Date Type Department Care Team (Late st Contact Info) Description 08/04/[address] [facility] [address] [facility] [place] [address] Aditya Cervantes [facility] [place], [id number] Social History Tobacco Use Types Packs/Day Years [...] Description 12/13/2024 1:40 PM EDT Routine [facility] [address] [place] [address] Aditya Cervantes [facility] [place], [place] [id number] documented as of this encounter Visit Diagnoses Not on filedocumented in this encounter
--- OUTSIDE RECORDS SUMMARY | 2024-12-05 09:47 | XMS_ITS | Encounter Summary ---
Author Organization [facility] Address [address] [place] [address] Care Team Providers Care Laborer Tanbark Name Role Phone Unavailable Primary Care Provider Unavailabl e Encounter Details Date Type Department Care Team (Late st Contact Info) Description 08/19/2023 Clinisync Result Encounter [facility] External Department Unsolicited Bruce Cervantes, DO [address] [place] [address] Social History Tobacco Use Types Packs/Day Years [...] Description 12/13/2024 1:40 PM EDT Routine [facility] [address] [facility] [place] [address] Bruce Cervantes [facility] [place] [address] documented as of this encounter Procedures Procedure Name Priority Date/Time Associated Diagnosis Comments US OB CERVICAL LENGTH 08/19/2023 11:33 AM EDT documented in this encounter Results * US OB CERVICAL LENGTH (08/19/2023 11:33 AM EDT) Anatomical Region Laterality Modality Other 08/19/2023 11:3 3 AM EDT Narrative 08/19/2023 11:35 AM EDT [address] [address] Ultrasound Report Signed Patient: ESTEFANIA CEDEÑO MR#: [id number] : 1995 Acct:[id number] Age/Sex: 28 / F ADM Date: 08/19/23 Loc: [facility] Attending Dr: Bruce Cervantes D.O. Ordering Physician: Bruce Cervantes D.O. Date of Service: 08/19/23 Procedure(s): US OB cervical length Accession Number(s): [id number] cc: Bruce Cervantes D.O.; Physician,Non-Staff Roberto The [address] [address] Patient Name: ESTEFANIA CEDEÑO MRN: [id number] date: 1995 Sex: F Assigned Patient Location: [facility] Current Patient Location: [facility] Accession/Order Number: [id number] Exam Date: 08/19/2023 10:08 Report Date: 08/19/2023 11:33 At the request of: BRUCE CERVANTES Procedure: US OB cervical length EXAMINATION: US OB anatomy, US OB cervical length HISTORY: ANATOMY COMPARISON: No relevant comparison available. TECHNIQUE: Transabdominal sonographic examination was performed for obstetrical and evaluation. FINDINGS: Number: 1 Heart Rate: 171.0 bpm H.B. /min Amniotic Fluid Volume: Subjectively normal Placental Location: POSTERIOR with lower margin 2.4 cm from os. Cervix Length: 4.1 cm, closed. ANATOMY: Normal Structures -cerebellum, choroid plexus, cisterna magna, lateral cerebral ventricles, orbits, midline falx, hard palate, stomach, kidneys, bladder, umbilical cord insertion into abdomen, three-vessel cord, cervical spine, thoracic spine, lumbar spine, sacral spine, right upper extremity, left upper extremity, right lower extremity, left lower extremity. SUBOPTIMALLY SEEN: Four-chamber heart and cardiac outflow tracts. ABNORMALITIES: None BIOMETRY: BPD: 4.4 cm 19 weeks 3 days HC: 17.7 cm 20 weeks 1 days AC: 14.6 cm 19 weeks 6 days FL: 3.5 cm 20 weeks 6 days EFW:345.6 grams; 64% FL/AC: 23.7 FL/BPD: 77.9 HC/AC: 1.2 GESTATIONAL AGE: Age by EDC: 20 weeks 0 days CARTER by EDC: 01/06/2024 Age by current US: 20 weeks 1 days CARTER by current US: 01/05/2024 US/US OB cervical length IMPRESSION: 1. Single live intrauterine with growth detailed above. 2. Suboptimal visualization of the four-chamber heart and cardiac outflow tracts due to position. 3. Posterior low-lying placenta. Electronically authenticated by: ED KRUEGER Date: 08/19/2023 11:33 Dictated By: Ed Krueger M.D. Signed By: 08/19/23 1135 DD/ 1133 TD/TT: Hospital Ward Clerk: Procedure Note Radiology, Radiologist, MD - 08/19/2023 [place] [address] Ultrasound Report Signed Patient: TRINITY CEDEÑO#: [id number] : 1995Acct:[id number] Age/Sex: M Date: 08/19/23 Loc: [facility] Attending Dr: Bruce Cervantes D.O. Ordering Physician: Bruce Cervantes D.O. Date of Service: 08/19/23 Procedure(s): US OB cervical length Accession Number(s): [id number] cc: Bruce Cervantes D.O.; Physician,Non-Staff M.Aminata The [place] [id number] Patient Name: ESTEFANIA CEDEÑO MRN: [id number] date: 1995 Sex: F Assigned Patient Location: [facility] Current Patient Location: [facility] Accession/Order Number: [id number] Exam Date: 08/19/2023 10:08 Report Date: 08/19/2023 11:33 At the request of: BRUCE CERVANTES Procedure: US OB cervical length EXAMINATION: US OB anatomy, US OB cervical length HISTORY: ANATOMY COMPARISON: No relevant comparison available. TECHNIQUE: Transabdominal sonographic examination was performed for obstetrical and evaluation. FINDINGS: Number: 1 Heart Rate: 171.0 bpm H.B. /min Amniotic Fluid Volume: Subjectively normal Placental Location: POSTERIOR with lower margin 2.4 cm from os. Cervix Length: 4.1 cm, closed. ANATOMY: Normal Structures -cerebellum, choroid plexus, cisterna magna, lateral cerebral ventricles, orbits, midline falx, hard palate, stomach, kidneys, bladder, umbilical cord insertion into abdomen, three-vessel cord,cervical spine, thoracic spine, lumbar spine, sacral spine, right upper extremity,left upper extremity, right lower extremity, left lower extremity. SUBOPTIMALLY SEEN: Four-chamber heart and cardiac outflow tracts. ABNORMALITIES: None BIOMETRY: BPD: 4.4 cm 19 weeks 3 days HC: 17.7 cm 20 weeks 1 days AC: 14.6 cm 19 weeks 6 days FL: 3.5 cm 20 weeks 6 days EFW:345.6 grams; 64% FL/AC: 23.7 FL/BPD: 77.9 HC/AC: 1.2 GESTATIONAL AGE: Age by EDC: 20 weeks 0 days CARTER by EDC: 01/06/2024 Age by current US: 20 weeks 1 days CARTER by current US: 01/05/2024 US/US OB cervical length IMPRESSION: 1. Single live intrauterine with growth detailed above. 2. Suboptimal visualization of the four-chamber heart and cardiac outflow tracts due to position. 3. Posterior low-lying placenta. Electronically authenticated by: ED KRUEGER Date: 08/19/2023 11:33 Dictated By: Ed Krueger M.D. Signed By:08/19/23 1135 DD/ 1133 TD/TT: Hospital Ward Clerk: us Bruce Billy DO [facility] Final Result documented in this encounter Visit Diagnoses Not on filedocumented in this encounter
--- OUTSIDE RECORDS SUMMARY | 2024-12-05 09:47 | XMS_ITS | Encounter Summary ---
Author Organization [facility] Address [address] [place] [address] Care Team Providers Care Cost Accounting Analyst Name Role Phone Unavailable Primary Care Provider Unavailabl e Encounter Details Date Type Department Care Team (Late st Contact Info) Description 09/16/2023 Clinisync Result Encounter [facility] External Department Unsolicited Bruce Cervantes, [facility] [place] [address] Social History Tobacco Use Types Packs/Day Years [...] PM EDT Routine [facility] [address] [place] [address] Bruce Cervantes [facility] [place] [address] documented as of this encounter Procedures Procedure Name Priority Date/Time Associated Diagnosis Comments US OB FOLLOW UP 09/16/2023 11:19 AM EDT documented in this encounter Results * US OB FOLLOW UP (09/16/2023 11:19 AM EDT) Anatomical Region Laterality Modality Radiographic Mari ging 09/16/2023 11:1 9 AM EDT Narrative 09/16/2023 11:22 AM EDT The [place] [id number] Ultrasound Report Signed Patient: ESTEFANIA CEDEÑO MR#: [id number] : 1995 Acct:[id number] Age/Sex: 28 / F ADM Date: 09/16/23 Loc: [facility] Attending Dr: Bruce Cervantes D.O. Ordering Physician: Bruce Cervantes D.O. Date of Service: 09/16/23 Procedure(s): US OB follow up Accession Number(s): [id number] cc: Bruce Cervantes D.O.; Physician,Non-Staff Roberto The [place] [id number] Patient Name: ESTEFANIA CEDEÑO MRN: [id number] date: 1995 Sex: F Assigned Patient Location: [facility] Current Patient Location: [facility] Accession/Order Number: [id number] Exam Date: 09/16/2023 09:58 Report Date: 09/16/2023 11:19 At the request of: BRUCE CERVANTES Procedure: US OB follow up EXAMINATION: US OB follow up HISTORY: INCOMPLETE ANATOMY COMPARISON: Ultrasound OB anatomy 08/19/2023 FINDINGS: Heart rate: 167 bpm Presentation: Cephalic Placenta: Posterior with lower margin 4.5 cm from os. Anatomy: Four-chamber heart, LVOT, RVOT GA: 24 weeks 0 days CARTER: 01/06/2024 US/US OB follow up IMPRESSION: 1. Single live intrauterine . 2. Adequate visualization of the heart and cardiac outflow tracts; no appreciable abnormality. 2. Posterior placenta which is no longer low-lying. Electronically authenticated by: DE KRUEGER Date: 09/16/2023 11:19 Dictated By: Ed Krueger M.D. Signed By: 09/16/23 1122 DD/ 1119 TD/TT: Lead Maintenance Technician: Procedure Note Radiology, Radiologist, MD - 09/16/2023 The [place] [id number] Ultrasound Report Signed Patient: TRINITY CEDEÑO#: [id number] : 1995Acct:[id number] Age/Sex: 28 / FADM Date: 09/16/23 Loc: [facility] Attending Dr: Bruce Cervantes D.O. Ordering Physician: Bruce Cervantes D.O. Date of Service: 09/16/23 Procedure(s): US OB follow up Accession Number(s): [id number] cc: Bruce Cervantes D.O.; Physician,Non-Staff Roberto [place] [address] Patient Name: ESTEFANIA CEDEÑO MRN: [id number] date: 1995 Sex: F Assigned Patient [facility]: [facility] Accession/Order Number: [id number] Exam Date: 09/16/2023 09:58 Report Date: 09/16/2023 11:19 At the request of: BRUCE CERVANTES Procedure: US OB follow up EXAMINATION: US OB follow up HISTORY: INCOMPLETE ANATOMY COMPARISON: Ultrasound OB anatomy 08/19/2023 FINDINGS: Heart rate: 167 bpm Presentation: Cephalic Placenta: Posterior with lower margin 4.5 cm from os. Anatomy: Four-chamber heart, LVOT, RVOT GA: 24 weeks 0 days CARTER: 01/06/2024 US/US OB follow up IMPRESSION: 1. Single live intrauterine . 2. Adequate visualization of the heart and cardiac outflow tracts; no appreciable abnormality. 2. Posterior placenta which is no longer low-lying. Electronically authenticated by: ED KRUEGER Date: 09/16/2023 11:19 Dictated By: Ed Krueger M.D. Signed By:09/16/23 1122 DD/ 1119 TD/TT: Lead Maintenance Technician: us Bruce Cervantes DO IMG XR PROCEDURES Final Result documented in this encounter Visit Diagnoses Not on filedocumented in this encounter
--- OUTSIDE RECORDS SUMMARY | 2024-12-05 09:47 | XMS_ITS | Clinical Summary ---
Author Organization [facility] Healthcare Address [address] [place] [address] Care Team Providers Care Counterintelligence Agent Name Role Phone Unavailable Primary Care Provider Unavailabl e Allergies Active Allergy Reactions Criticality Noted Date Comments Other 04/18/2024 NUTS Triamcinolone Other,Hives High 10/13/2013 Had to have reconstructive surgery. Dimpling of the skin Medications Vit-Fe Fumarate-FA (PNV Plus Multivitamin) 27-1 MG tabletIndications:En counter for supervision of normal first in first trimester ([facility]) Take 1 tablet by mouth Daily 30 tablet 11 5 Active aspirin 81 MG EC tablet Take 81 mg by mouth Daily Active iron polysaccharides (ProFe) 391.3 (180 Fe) MG capsuleIndications:D izziness Take 1 capsule (391.3 mg) by mouth Daily 30 capsule 6 5 12/23/19 25 Active Resolved Problems Problem Noted Date Diagnosed Date Resolved Date Excessive growth affec ting management of mother, antepartum ([facility]) 12/06/2023 01/03/20 24 Third trimester ([facility]) 12/06/2023 01/03/2024 Encounters Date Type Department Care Team Description 11/28/2024 Abstract [facility] OB [address] [place] [address] Bruce Cervantes DO 11/22/2024 1:50 PM EDT Routine [facility] OB [facility] [place] [address] Bruce Cervantes DO Dizziness (Primary Dx); 25 weeks gestation of ([facility]); Second trimester ([facility]); History of gestational diabetes; Diabetes mellitus screening 11/22/2024 Bamboo flowsheet [facility] [address] [place] [address] Bruce Cervantes, 10/31/2024 Abstract [facility] [address] [place] [address] Bruce Cervantes, 10/25/2024 9:30 AM EDT Routine [facility] [address] [place] [address] Latasha Padgett PA Second trimester ([facility]); 21 weeks gestation of ([facility]) 10/25/2024 8:00 AM EDT Ancillary Procedure [facility] [address] [place] [address] 10/17/2024 Clinisync Result Encounter [facility] External Department Unsolicited Bruce Cervantes DO 10/17/2024 Telephone [facility] [address] [place] [address] Bruce Cervantes, 10/06/2024 Orders Only [facility] [address] [place] [address] Maria Elena Dolan MA 09/27/2024 Telephone [facility] [address] [place] [address] Cammie Polo MA 09/26/2024 9:50 AM EDT Routine [facility] [address] [place] [address] Bruce Cervantes DO Screening, , for anatomic survey ([facility]); Well woman exam with routine gynecological exam; STD exposure; Vaginal discharge; Second trimester ([facility]); 17 weeks gestation of ([facility]) 09/26/2024 Clinisync Result Encounter [facility] External Department Unsolicited Bruce Cervantes, 09/26/2024 Bamboo flowsheet [facility] [address] [place] [address] Bruce Cervantes DO 09/25/20[address] Telephone [facility] [address] [place] [address] Polo Cammie, [place] 09/19/2024 Abstract [facility] [address] [place] [address] Bruce Cervantes DO from Last 3 Months Family History Medical History Relation Name Comments Diabetes Father Fibromyalgia Mother Lupus Mother Rheum arthritis Mother Relation Name Status Comments Father Mother Social History Tobacco Use Types Packs/Day Years Used Date Smoking Tobacco: Never Assessed Estimated Date of Delivery Comme nts Yes 03/06/2025 Based on Ultraso und Sex and Gender Information Value Date Recorded Sex Assigned at Not on file Legal Sex Female 3:04 PM EDT Gender Identity Not on file Sexual Orientation Not on file Last Filed Vital Signs Vital Sign Reading Time Taken Comments Blood Pressure 128/78 11/22/2024 2:29 PM EDT Pulse - - Temperature - - Respiratory Rate - - Oxygen Saturation - - Inhaled Oxygen Concentration - - Weight 123 kg (271 lb 12.8 oz) 11/22/2024 2:29 P M EDT Height 170.2 cm (5' 7 ) 01/10/2024 8:56 AM EDT Body Mass Index 42.57 01/10/2024 8:56 AM EDT Plan of Treatment Upcoming Encounters Date Type Department Care Team (Late st Contact Info) Description 12/13/2024 1:40 PM EDT Routine [facility] [address] [place] [address] Bruce Cervantes DO [address] [place] [address] [place] [address] Procedures Procedure Name Priority Date/Time Associated Diagnosis Comments POCT URINALYSIS DIPSTICK Routine 11/22/2024 2:36 PM EDT 25 weeks gestation of ([facility]) Second trimester ([facility]) History of gestational diabetes POCT URINALYSIS DIPSTICK Routine 10/25/2024 9:11 AM EDT Second trimester ([facility]) US OB 14+ WEEKS ANATOMY SCAN Routine 10/25/2024 8:59 AM EDT Screening, , for anatomic survey ([facility]) MHPT AFP, MATERNAL Routine 10/17/2024 10 :23 AM EDT RECURRENT VAGINITIS (HTRX) Routine 09/26/2024 11:07 AM EDT POCT URINALYSIS DIPSTICK Routine 09/26/2024 11:03 AM EDT 17 weeks gestation of ([facility]) IGP,APTIMA HPV,AGE GDLN Routine 09/26/2024 10:05 AM EDT PAP SMEAR Routine 09/26/2024 12:00 AM EDT from Last 3 Months Results * (ABNORMAL) POCT urinalysis dipstick manually resulted (11/22/2024 2:36 PM EDT) Only the most recent of3 resultswithin the time period is included. Color, UA Yellow Clarity, UA Clear Glucose, [...] - Positive Urine 11/22/2024 2:36 PM EDT Bruce Cervantes DO POINT OF CARE TEST ENTER/EDIT OR DERABLES Final Result * US OB 14+ weeks anatomy scan (10/25/2024 8:59 AM EDT) Anatomical Region Laterality Modality Body Ultrasound 10/25/2024 11:2 0 PM EDT Narrative 10/25/2024 11:20 PM EDT EXAM: US OB 14+ WEEKS ANATOMY SCAN HISTORY: anatomy. COMPARISON: Ob ultrasound 08/04/2024. [...] anatomy. Interpreted by: Electronically signed by PENG CORNELL II, MD, PHD at 25-Oct-2024 11:18:35 PM [facility] Procedure Note Peng Cornell MD - 10/25/2024 EXAM: US OB 14+ WEEKS ANATOMY SCAN HISTORY: anatomy. COMPARISON: Ob ultrasound 08/04/2024. TECHNIQUE: Two-dimensional transabdominal grayscale ultrasound imaging ofthe pelvis was performed. FINDINGS: Gestation: Single Presentation: Cephalic Cardiac Activity: 143 beats per minute Placental Location: Anterior with no sonographic abnormalitiesidentified. Distance from Placental Tip to Cervix: 3.2 [...] is 21 weeks 1 days (+/- 10 daysgestation). Estimated Weight: 428 grams, +/- 64 grams [...] gestation 21 weeks, 1 days by LMP. Today'sultrasound measurements correlate with a gestational age of 21 weeks 1days. Estimated weight is 428 grams, +/- 64 grams ( 0 lb 15 oz)which correlates to 64 %. CARTER is 04/06/2025. 2. Unremarkable ultrasound of the anatomy. Interpreted by: Electronically signed by PENG CORNELL II, MD, PHD 11:18:35 PM [facility] us Bruce Cervantes DO IMG OB US PROCEDURES Final Resul t * MHPT AFP, MATERNAL (10/17/2024 10:23 AM EDT) MHPT DUE DATE SEE NOTE MHPT Comment: Results for Estimated Due Date: 03 06 25 MHPT DETERMINED BY Ultrasound MHPT MHPT PATIENT'S AFP 36 ng/mL MHPT MHPT MOM FOR AFP 0.82 MHPT MHPT INTERPRETATION Screen Neg MHPT Comment: (NOTE) INTERPRETATION: SCREEN NEGATIVE for open spina bifida Neural Tube Defects (NTD) Negative Pre-Test Post-Test Cutoff Neural Tube Defects Risks 1:1030 < 1:28912 1:250 Comments: The risk of an open neural tube defect is less than the screening cut-off. This test was developed and its performance characteristics determined by [facility]. It has not been cleared or approved by the US Food and Drug Administration. This test was performed in a CLIA certified laboratory and is intended for clinical purposes. MHPT [age] MHPT MHPT MATERNAL WEIGHT 234.0 lbs. MHPT MHPT GESTAT AGE (EXACT) 20 wks, 0 days MHPT MHPT NUMBER OF FETUSES Sanchez MHPT MHPT MATERNAL RACE Nonblack MHPT MHPT INS REQ MATERN DIAB No MHPT MHPT SMOKING Unknown MHPT MHPT FAMILY HISTORY No MHPT MHPT SPECIMEN See Note MHPT Comment: (NOTE) Initial sample Performed By: [facility] [address] [place] [id number] Head Of History: Pranay Rousseau MD, PhD IA Number: [id number] 10/17/2024 10:2 3 AM EDT 10/17/2024 10:24 AM EDT Narrative [facility] - 10/30/2024 8:41 AM EDT Original Ordering Provider: BRUCE CRAVEN us Bruce PHILLIP Final Result [facility] MHPT * (ABNORMAL) RECURRENT VAGINITIS (HTRX) (09/26/2024 11:07 AM EDT) ATOPOBIUM VAGINAE 0.000 19.961 - 24.689 ppm 09/27/2024 6:09 AM EDT [facility] ATOPOBIUM VAGINAE Not Detected 19.961 - 24.689 ppm 09/27/2024 6:09 AM EDT [facility] BVAB 2,3 (BACTERIAL VAGINOSIS ASSOCIATED BACTERIA 2, 3); MOBILUNCUS SPP 0.000 19.961 - 24.689 ppm 09/27/2024 6:09 AM EDT [facility] BVAB 2,3 (BACTERIAL VAGINOSIS ASSOCIATED BACTERIA 2, 3); MOBILUNCUS SPP Not Detected 19.961 - 24.689 ppm 09/27/2024 6:09 AM EDT [facility] MARTHA ALBICANS, PARAPSILOSIS, TROPICALIS 25.317(A) 19.961 - 30.770 ppm 09/27/2024 6:09 AM EDT [facility] MARTHA ALBICANS, PARAPSILOSIS, TROPICALIS Detected(A) 19.961 - 30.770 ppm 09/27/2024 6:09 AM EDT [facility] MARTHA GLABRATA 0.000 23.000 - 32.138 ppm 09/27/2024 6:09 AM EDT [facility] MARTHA GLABRATA Not Detected 23.000 - 32.138 ppm 09/27/2024 6:09 AM EDT [facility] MARTHA KRUSEI 0.000 23.000 - 32.271 ppm 09/27/2024 6:09 AM EDT [facility] MARTHA KRUSEI Not Detected 23.000 - 32.271 ppm 09/27/2024 6:09 AM EDT [facility] CHLAMYDIA TRACHOMATIS 0.000 23.000 - 31.467 ppm 09/27/2024 6:09 AM EDT [facility] CHLAMYDIA TRACHOMATIS Not Detected 23.000 - 31.467 ppm 09/27/2024 6:09 AM EDT [facility] GARDNERELLA VAGINALIS 17.782(A) 19.961 - 24.689 ppm 09/27/2024 6:09 AM EDT [facility] GARDNERELLA VAGINALIS Detected(A) 19.961 - 24.689 ppm 09/27/2024 6:09 AM EDT [facility] MEGASPHAERA (TYPES 1, 2) 0.000 19.961 - 24.689 ppm 09/27/2024 6:09 AM EDT [facility] MEGASPHAERA (TYPES 1, 2) Not Detected 19.961 - 24.689 ppm 09/27/2024 6:09 AM EDT [facility] NEISSERIA GONORRHOEAE 0.000 23.000 - 32.117 ppm 09/27/2024 6:09 AM EDT [facility] NEISSERIA GONORRHOEAE Not Detected 23.000 - 32.117 ppm 09/27/2024 6:09 AM EDT [facility] TRICHOMONAS VAGINALIS 0.000 23.000 - 32.119 ppm 09/27/2024 6:09 AM EDT [facility] TRICHOMONAS VAGINALIS Not Detected 23.000 - 32.119 ppm 09/27/2024 6:09 AM EDT [facility] MYCOPLASMA GENITALIUM 0.000 19.961 - 24.689 ppm 09/27/2024 6:09 AM EDT [facility] MYCOPLASMA GENITALIUM Not Detected 19.961 - 24.689 ppm 09/27/2024 6:09 AM EDT [facility] ERMB, C; MEFA 16.822(A) 23.000 - 27.611 ppm 09/27/2024 6:09 AM EDT [facility] ERMB, C; MEFA Detected(A) 23.000 - 27.611 ppm 09/27/2024 6:09 AM EDT [facility] TET B, TET M 22.584(A) 23.000 - 27.778 ppm 09/27/2024 6:09 AM EDT [facility] TET B, TET M Detected(A) 23.000 - 27.778 ppm 09/27/2024 6:09 AM EDT [facility] Tissue 09/26/2024 11:0 7 AM EDT 09/27/2024 2:08 AM EDT us Bruce Cervantes DO LAB BLOOD ORDERABLES Final Resul t [facility] [address] [place] [address] * IGP,APTIMA HPV,AGE GDLN (09/26/2024 10:05 AM EDT) AGE GDLN ACOG TESTING Note . [facility] Comment: TESTS RESULT FLAG UNITS REF RANGE LAB Clinician Provided Cytology Information Other.............. No. of containers..01 ThinPrep Vial Age Algo ACOG Geetha... FLAG LEGEND: L-Low Normal,H-High Normal,LL-Alert Low,HH-Alert High <-Panic Low,>-Panic High,A-Abnormal,AA-Critical Abnormal Performed at: 01 =G [facility] [address] [place] [address] Lynda Almaguer MD, IGP, RFX APTIMA HPV ASCU Note . [facility] Comment: TESTS RESULT FLAG UNITS REF RANGE LAB DIAGNOSIS: 02 NEGATIVE FOR INTRAEPITHELIAL LESION OR MALIGNANCY. FUNGAL ORGANISMS MORPHOLOGICALLY CONSISTENT WITH MARTHA SPECIES ARE PRESENT. CELLULAR CHANGES ASSOCIATED WITH INFLAMMATION ARE PRESENT. Specimen adequacy: 02 Satisfactory for evaluation. Endocervical and/or squamous metaplastic cells (endocervical component) are present. Performed by: 02 [facility] . 02 Note: Note 02 The Pap smear is a screening test designed to aid in the detection of premalignant and malignant conditions of the uterine cervix. It is not a diagnostic procedure and should not be used as the sole means of detecting cervical cancer. Both false-positive and false-negative reports do occur. Test Methodology: Note 02 This liquid based ThinPrep(R) pap test was screened with the use of an image guided system. . 02 The HPV DNA reflex criteria were not met with this specimen result therefore, no HPV testing was performed. FLAG LEGEND: L-Low Normal,H-High Normal,LL-Alert Low,HH-Alert High <-Panic Low,>-Panic High,A-Abnormal,AA-Critical Abnormal Performed at: [address] [place] [address] Lynda Almaguer MD, Performed at: = - [facility] [id number] Supervisor Ditching: Lynda Almaguer MD, Phone: [phone] Performed at: [address] [id number] Supervisor Ditching: Lynda Almaguer MD, Phone: [phone] 09/26/2024 10:0 5 AM EDT 09/26/2024 12:57 PM EDT Narrative [facility] - 09/28/2024 10:09 AM EDT BRUSH-SPATULA BRUSH-ALONE 2 us Bruce Billy DO LAB BLOOD ORDERABLES Final Resul t [facility] * Pap Smear (09/26/2024 12:00 AM EDT) Swab Cervical swab / Unknown us Bruce Billy DO LAB CYTOLOGY ORDERABLES Final Re sult EXTERNAL LAB from Last 3 Months Insurance [employer] [place]
--- OUTSIDE RECORDS SUMMARY | 2024-12-05 09:47 | XMS_ITS | Encounter Summary ---
Author Organization [facility] Address [address] [place] [address] Care Team Providers Care Healthcare Business Analyst Name Role Phone Unavailable Primary Care Provider Unavailabl e Encounter Details Date Type Department Care Team (Late st Contact Info) Description 08/19/2023 Clinisync Result Encounter [facility] External Department Unsolicited Bruce Cervantes, DO [address] [place] [address] Social History Tobacco Use Types Packs/Day Years [...] Description 12/13/2024 1:40 PM EDT Routine [facility] OB [address] [place], [place] [address] [place] [address] Bruce Cervantes [facility] [place] [address] documented as of this encounter Procedures Procedure Name Priority Date/Time Associated Diagnosis Comments US OB ANATOMY 08/19/2023 11:33 AM EDT documented in this encounter Results * US OB ANATOMY (08/19/2023 11:33 AM EDT) Anatomical Region Laterality Modality Other 08/19/2023 11:3 3 AM EDT Narrative 08/19/2023 11:36 AM EDT The [address] [address] Ultrasound Report Signed Patient: ESTEFANIA CEDEÑO MR#: [id number] : 1995 Acct:[id number] Age/Sex: 28 / F ADM Date: 08/19/23 Loc: [facility] Attending Dr: Bruce Cervantes D.O. Ordering Physician: Bruce Cervantes D.O. Date of Service: 08/19/23 Procedure(s): US OB anatomy Accession Number(s): [id number] cc: Bruce Cervantes D.O.; Physician,Non-Staff [place] [id number] Patient Name: ESTEFANIA CEDEÑO MRN: [id number] date: 1995 Sex: F Assigned Patient Location: [facility] Current Patient Location: [facility] Accession/Order Number: [id number] Exam Date: 08/19/2023 10:08 Report Date: 08/19/2023 11:33 At the request of: BRUCE CERVANTES Procedure: US OB anatomy EXAMINATION: US OB anatomy, US OB cervical [...] CARTER by current US: 01/05/2024 US/US OB anatomy IMPRESSION: 1. Single live intrauterine with growth detailed above. 2. Suboptimal visualization of the four-chamber heart and cardiac outflow tracts due to position. 3. Posterior low-lying placenta. Electronically authenticated by: ED KRUEGER Date: 08/19/2023 11:33 Dictated By: Ed Krueger M.D. Signed By: 08/19/23 1136 DD/ 1133 TD/TT: Technology Director: Procedure Note Radiology, Radiologist, MD - 08/19/2023 [place] [address] Ultrasound Report Signed Patient: TRINITY CEDEÑO#: [id number] : 1995Acct:[id number] Age/Sex: 28 / FADM Date: 08/19/23 Loc: [facility] Attending Dr: Bruce Cervantes D.O. Ordering Physician: Bruce Cervantes D.O. Date of Service: 08/19/23 Procedure(s): US OB anatomy Accession Number(s): [id number] cc: Bruce Cervantes D.O.; Physician,Non-Staff Roberto The [place] [address] Patient Name: ESTEFANIA CEDEÑO MRN: [id number] date: 1995 Sex: F Assigned Patient Location: [facility] Current Patient Location: [facility] Accession/Order Number: [id number] Exam Date: 08/19/2023 10:08 Report Date: 08/19/2023 11:33 At the request of: BRUCE CERVANTES Procedure: US OB anatomy EXAMINATION: US OB anatomy, US OB cervical [...] CARTER by current US: 01/05/2024 US/US OB anatomy IMPRESSION: 1. Single live intrauterine with growth detailed above. 2. Suboptimal visualization of the four-chamber heart and cardiac outflow tracts due to position. 3. Posterior low-lying placenta. Electronically authenticated by: ED KRUEGER Date: 08/19/2023 11:33 Dictated By: Ed Krueger M.D. Signed By:08/19/23 1136 DD/ 1133 TD/TT: Technology Director: Bruce Billy DO [facility] Final Result documented in this encounter Visit Diagnoses Not on filedocumented in this encounter
--- OUTSIDE RECORDS SUMMARY | 2024-12-05 09:47 | XMS_ITS | Encounter Summary ---
Author Organization [facility] Address [address] [place] [address] Care Team Providers Care Zoning Technician Name Role Phone Unavailable Primary Care Provider Unavailabl e Encounter Details Date Type Department Care Team (Late st Contact Info) Description 10/28/2023 Clinisync Result Encounter [facility] External Department Unsolicited Bruce Cervantes, DO [address] [place] [address] Social History Tobacco Use Types Packs/Day Years [...] Description 12/13/2024 1:40 PM EDT Routine [facility] OB [address] [facility] [place] [address] Bruce Cervantes, [facility] [address] documented as of this encounter Procedures Procedure Name Priority Date/Time Associated Diagnosis Comments US OB GROWTH 10/28/2023 9:56 AM EDT documented in this encounter Results * US OB GROWTH (10/28/2023 9:56 AM EDT) Anatomical Region Laterality Modality Other 10/28/2023 9:56 AM EDT Narrative 10/28/2023 9:59 [place] [address] Ultrasound Report Signed Patient: ESTEFANIA CEDEÑO MR#: [id number] : 1995 Acct:[id number] Age/Sex: 28 / F ADM Date: 10/28/23 Loc: US Attending Dr: Bruce Cervantes D.O. Ordering Physician: Bruce Cervantes D.O. Date of Service: 10/28/23 Procedure(s): US OB growth Accession Number(s): [id number] cc: Bruce Cervantes D.O.; Physician,Non-Staff Roberto The [place] [address] Patient Name: ESTEFANIA CEDEÑO MRN: [id number] date: 1995 Sex: F Assigned Patient Location: US Current Patient Location: Accession/Order Number: [id number] Exam Date: 10/28/2023 08:55 Report Date: 10/28/2023 09:56 At the request of: BRUCE CERVANTES Procedure: US OB growth EXAMINATION: US OB growth HISTORY: Size Inconsistent With Dates O26.849 COMPARISON: No relevant comparison available. FINDINGS: Heart Rate: 142.1 bpm Amniotic Fluid Volume: 15.0 cm Number: 1.0 Position: Cephalic presentation, longitudinal lie Maximum Vertical Pocket: 5.5 cm cm 3.9 cm cm 3.8 cm cm 1.9 cm cm BIOMETRY: BPD: 7.7 cm cm; 30 weeks 5 days; 60% HC: 29.3 cmcm; 32 weeks 2 days , 80% AC: 26.6 cm cm; 30 weeks 5 days, 67% FL: 6.1 cm cm; 31 weeks 4 days; 77.3 % % EFW: 1706.0 grams, 3 lbs. 12 oz., 77% FL/AC: 22.8 FL/BPD: 79.3 HC/AC: 1.1 GESTATIONAL AGE: Age by EDC: 30 weeks 0 days CARTER by EDC: 01/06/2024 Age by US: 31 weeks 2 days CARTER by US: 12/28/2023 US/US OB growth IMPRESSION: Normal interval growth Electronically authenticated by: KURT STONE Date: 10/28/2023 09:56 Dictated By: Kurt Stone M.D. Signed By: 10/28/23 0959 DD/ TD/TT: Quartz Mounter: Procedure Note Radiology, Radiologist, - 10/28/2023 [place] [address] Ultrasound Report Signed Patient: TRINITY CEDEÑO#: [id number] : 1995Acct:[id number] Age/Sex: FADM Date: 10/28/23 Loc: US Attending Dr: Bruce Cervantes D.O. Ordering Physician: Bruce Cervantes D.O. Date of Service: 10/28/23 Procedure(s): US OB growth Accession Number(s): [id number] cc: Bruce Cervantes D.O.; Physician,Non-Staff Roberto The [place] [id number] Patient Name: ESTEFANIA CEDEÑO MRN: [id number] date: 1995 Sex: F Assigned Patient Location: US Current Patient Location: US Accession/Order Number: [id number] Exam Date: 10/28/2023 08:55 Report Date: 10/28/2023 09:56 At the request of: BRUCE CERVANTES Procedure: US OB growth EXAMINATION: US OB growth HISTORY: Size Inconsistent With Dates O26.849 COMPARISON: No relevant comparison available. FINDINGS: Heart Rate: 142.1 bpm Amniotic Fluid Volume: 15.0 cm Number: 1.0 Position: Cephalic presentation, longitudinal lie Maximum Vertical Pocket: 5.5 cm cm 3.9 cm cm 3.8 cm cm 1.9 cm cm BIOMETRY: BPD: 7.7 cm cm; 30 weeks 5 days; 60% HC: 29.3 cmcm; 32 weeks 2 days , 80% AC: 26.6 cm cm; 30 weeks 5 days, 67% FL: 6.1 cm cm; 31 weeks 4 days; 77.3 % % EFW: 1706.0 grams, 3 lbs. 12 oz., 77% FL/AC: 22.8 FL/BPD: 79.3 HC/AC: 1.1 GESTATIONAL AGE: Age by EDC: 30 weeks 0 days CARTER by EDC: 01/06/2024 Age by US: 31 weeks 2 days CARTER by US: 12/28/2023 US/US OB growth IMPRESSION: Normal interval growth Electronically authenticated by: KURT STONE Date: 10/28/2023 09:56 Dictated By: Kurt Stone M.D. Signed By:10/28/23 0959 DD/ TD/TT: Quartz Mounter: us Bruce Billy DO [facility] Final Result documented in this encounter Visit Diagnoses Not on filedocumented in this encounter
--- OUTSIDE RECORDS SUMMARY | 2024-12-05 09:47 | XMS_ITS | Encounter Summary ---
Author Organization [facility] Address [address] [facility] [place] [address] Care Team Providers Care Micro Photographer Name Role Phone Unavailable Primary Care Provider Unavailabl e Encounter Details Date Type Department Care Team (Late st Contact Info) Description 12/15/2023 Abstract [facility] OB [address] [place] [address] Trini Aquino LPN [address] [facility] [place] [id number] Social [...] Description 12/13/2024 1:40 PM EDT Routine [facility] OB [address] [place] [address] Aditya Cervantes DO [address] [facility] [place], [facility] documented as of this encounter Visit Diagnoses Not on filedocumented in this encounter
--- OUTSIDE RECORDS SUMMARY | 2024-12-05 09:47 | XMS_ITS | Encounter Summary ---
Author Organization [facility] Address [address] [place] [address] Care Team Providers Care Peanut Shaker Name Role Phone Unavailable Primary Care Provider Unavailabl e Encounter Details Date Type Department Care Team (Late st Contact Info) Description 12/15/2023 Clinisync Result Encounter [facility] External Department Unsolicited Bruce Cervantes, DO [address] [place] [address] Social History Tobacco Use Types Packs/Day Years [...] Description 12/13/2024 1:40 PM EDT Routine [facility] OB [address] [facility] [place] [phone] Bruce Cervantes [facility] [place] [address] documented as of this encounter Procedures Procedure Name Priority Date/Time Associated Diagnosis Comments US OB GROWTH 12/15/2023 12:01 PM EDT [facility] BOX TEST SENT OUT Routine 12/15/2023 11:10 AM EDT documented in this encounter Results * US OB GROWTH (12/15/2023 12:01 PM EDT) Anatomical Region Laterality Modality Other 12/15/2023 12:0 1 PM EDT Narrative 12/15/2023 12:04 [place] [address] Ultrasound Report Signed Patient: ESTEFANIA CEDEÑO MR#: [id number] : 1995 Acct:[id number] Age/Sex: 28 / F ADM Date: 12/15/23 Loc: [facility] Attending Dr: Bruce Cervantes D.O. Ordering Physician: Bruce Cervantes D.O. Date of Service: 12/15/23 Procedure(s): US OB growth Accession Number(s): [id number] cc: Bruce Cervantes D.O.; Physician,Non-Staff [place] [address] Patient Name: ESTEFANIA CEDEÑO MRN: [id number] date: 1995 Sex: F Assigned Patient Location: [facility] Current Patient Location: [facility] Accession/Order Number: [id number] Exam Date: 12/15/2023 10:33 Report Date: 12/15/2023 12:01 At the request of: BRUCE CERVANTES Procedure: US OB growth EXAMINATION: US OB growth HISTORY: LARGE FOR GESTATIONAL AGE COMPARISON: Ultrasound OB anatomy 08/19/2023 FINDINGS: Heart Rate: 128 bpm Amniotic Fluid Volume: 22.8 cm (normal range) Number: 1 Position: CEPHALIC BIOMETRY: BPD: 9.47 cm; 38 weeks 4 days; 95 % HC: 35.49 cm; 41 weeks 4 days; >97 % AC: 36.85 cm; 40 weeks 5 days; >97% FL: 7.84 cm; 40 weeks 1 day; >97 % EFW: 3931.40 g; > 97 % FL/AC: 21.28 FL/BPD: 82.79 HC/AC: 0.96 GESTATIONAL AGE: Age by EDC: 36 weeks 6 days CARTER by EDC: 2024-01-06 Age by US: 40 weeks 2 days CARTER by US: Past due date US/US OB growth IMPRESSION: 1. Single live intrauterine with growth detailed above. 2. Estimated weight is greater than 97th percentile. Dr. Cervantes was notified of findings by brush maker machine at time of imaging. Electronically authenticated by: ED KRUEGER Date: 12/15/2023 12:01 Dictated By: Ed Krueger M.D. Signed By: 12/15/23 1204 DD/ 1201 TD/TT: Sweat Band Separator: Procedure Note Radiology, Radiologist, MD - 12/15/2023 [place] [address] Ultrasound Report Signed Patient: TRINITY CEDEÑO#: [id number] : 1995Acct:[id number] Age/Sex: Date: 12/15/23 Loc: [facility] Attending Dr: Bruce Cervantes D.O. Ordering Physician: Bruce Cervantes D.O. Date of Service: 12/15/23 Procedure(s): US OB growth Accession Number(s): [id number] cc: Bruce Cervantes D.O.; Physician,Non-Staff Roberto The [place] [address] Patient Name: ESTEFANIA CEDEÑO MRN: [facility]:[id number] date: 1995 Sex: F Assigned Patient Location: [facility] Current Patient Location: [facility] Accession/Order Number: [id number] Exam Date: 12/15/2023 10:33 Report Date: 12/15/2023 12:01 At the request of: BRUCE CERVANTES Procedure: US OB growth EXAMINATION: US OB growth HISTORY: LARGE FOR GESTATIONAL AGE COMPARISON: Ultrasound OB anatomy 08/19/2023 FINDINGS: Heart Rate: 128 bpm Amniotic Fluid Volume: 22.8 cm (normal range) Number: 1 Position: CEPHALIC BIOMETRY: BPD: 9.47 cm; 38 weeks 4 days; 95 % HC: 35.49 cm; 41 weeks 4 days; >97 % AC: 36.85 cm; 40 weeks 5 days; >97% FL: 7.84 cm; 40 weeks 1 day; >97 % EFW: 3931.40 g; > 97 % FL/AC: 21.28 FL/BPD: 82.79 HC/AC: 0.96 GESTATIONAL AGE: Age by EDC: 36 weeks 6 days CARTER by EDC: 2024-01-06 Age by US: 40 weeks 2 days CARTER by US: Past due date US/US OB growth IMPRESSION: 1. Single live intrauterine with growth detailed above. 2. Estimated weight is greater than 97th percentile. Dr. Cervantes was notified of findings by brush maker machine at time of imaging. Electronically authenticated by: ED KRUEGER Date: 12/15/2023 12:01 Dictated By: Ed Krueger M.D. Signed By:12/15/23 1204 DD/ 1201 TD/TT: Sweat Band Separator: us Bruce Billy DO [facility] Final Result * [facility] BOX TEST SENT OUT (12/15/2023 11:10 AM EDT) BOX TEST SENT OUT see scanned report [facility] 12/15/2023 11:1 0 AM EDT 12/16/2023 8:10 AM EDT Narrative [facility] - 12/19/2023 12:56 PM EDT us Bruce Billy DO [facility] Final Result [facility] TB documented in this encounter Visit Diagnoses Not on filedocumented in this encounter
--- OUTSIDE RECORDS SUMMARY | 2024-12-05 09:47 | XMS_ITS | Encounter Summary ---
Author Organization [facility] Address [address] [place] [address] Care Team Providers Care Auction Block Clerk Name Role Phone Unavailable Primary Care Provider Unavailabl e Encounter Details Date Type Department Care Team (Late st Contact Info) Description 12/30/2023 Clinisync Result Encounter [facility] External Department Unsolicited Bruce Cervantes, DO [facility] [place] [address] Social History Tobacco Use Types Packs/Day Years [...] PM EDT Routine [facility] OB [address] [facility] [place] [phone] [address] C[address]antes [place] [address] documented as of this encounter Procedures Procedure Name Priority Date/Time Associated Diagnosis Comments US OB BPP W NON-STRESS 12/30/2023 12:19 PM EDT documented in this encounter Results * US OB BPP W NON-STRESS (12/30/2023 12:19 PM EDT) Anatomical Region Laterality Modality Other 12/30/2023 12:1 9 PM EDT Narrative 12/30/2023 12:22 [place] [address] Ultrasound Report Signed Patient: ESTEFANIA CEDEÑO MR#: [id number] : 1995 Acct:[id number] Age/Sex: 28 / F ADM Date: 12/30/23 Loc: US Attending Dr: Bruce Cervantes D.O. Ordering Physician: Bruce Cervantes D.O. Date of Service: 12/30/23 Procedure(s): US OB BPP w non-stress Accession Number(s): [id number] cc: Bruce Cervantes D.O.; Physician,Non-Staff Roberto The [place] [id number] Patient Name: ESTEFANIA CEDEÑO MRN: [id number] date: 1995 Sex: F Assigned Patient Location: [facility] Current Patient Location: Accession/Order Number: [id number] Exam Date: 12/30/2023 10:17 Report Date: 12/30/2023 12:19 At the request of: BRUCE CERVANTES Procedure: US OB BPP w non-stress EXAMINATION: US OB BPP w non-stress HISTORY:Excessive growth O36.60X0 COMPARISON: Ultrasound OB biophysical 12/23/2023 TECHNIQUE: Ultrasound biophysical profile was performed in the radiology department. BREATHING MOVEMENTS: 2 GROSS BODY MOVEMENTS: 2 TONE: 2 QUALITATIVE AMNIOTIC FLUID VOLUME: 2 PRESENTATION: CEPHALIC HEART RATE: 146.74 bpm AMNIOTIC FLUID VOLUME: 16.59 cm GESTATIONAL AGE: 39 weeks 0 days US/US OB BPP w non-stress IMPRESSION: Total biophysical profile score: 8 Electronically authenticated by: ED KRUEGER Date: 12/30/2023 12:19 Dictated By: Ed Krueger M.D. Signed By: 12/30/23 1222 DD/ 1219 TD/TT: Manager Strategy & Account: Procedure Note Radiology, Radiologist, MD - 12/30/2023 The [place] [id number] Ultrasound Report Signed Patient: TRINITY CEDEÑO#: [id number] : 1995Acct:[id number] Age/Sex: 28 / FADM Date: 12/30/23 Loc: US Attending Dr: Bruce Cervantes D.O. Ordering Physician: Bruce Cervantes D.O. Date of Service: 12/30/23 Procedure(s): US OB BPP w non-stress Accession Number(s): [id number] cc: Bruce Cervantes D.O.; Physician,Non-Staff Roberto [place] [address] Patient Name: ESTEFANIA CEDEÑO MRN: [facility]:[id number] date: 1995 Sex: F Assigned Patient Location: [facility] Current Patient Location: Accession/Order Number: [id number] Exam Date: 12/30/2023 10:17 Report Date: 12/30/2023 12:19 At the request of: BRUCE CERVANTES Procedure: US OB BPP w non-stress EXAMINATION: US OB BPP w non-stress HISTORY:Excessive growth O36.60X0 COMPARISON: Ultrasound OB biophysical 12/23/2023 TECHNIQUE: Ultrasound biophysical profile was performed in the radiology department. BREATHING MOVEMENTS: 2 GROSS BODY MOVEMENTS: 2 TONE: 2 QUALITATIVE AMNIOTIC FLUID VOLUME: 2 PRESENTATION: CEPHALIC HEART RATE: 146.74 bpm AMNIOTIC FLUID VOLUME: 16.59 cm GESTATIONAL AGE: 39 weeks 0 days US/US OB BPP w non-stress IMPRESSION: Total biophysical profile score: 8 Electronically authenticated by: ED KRUEGER Date: 12/30/2023 12:19 Dictated By: Ed Krueger M.D. Signed By:12/30/23 1222 DD/ 1219 TD/TT: Manager Strategy & Account: us Bruce Cervantes DO [facility] Final Result documented in this encounter Visit Diagnoses Not on filedocumented in this encounter
--- OUTSIDE RECORDS SUMMARY | 2024-12-05 09:47 | XMS_ITS | Encounter Summary ---
Author Organization [facility] Address [address] [facility] [address] Care Team Providers Care Heavy Equipment Rental Manager Name Role Phone Unavailable Primary Care Provider Unavailabl e Encounter Details Date Type Department Care Team (Late st Contact Info) Description 12/21/2023 Abstract [facility] OB [address] [facility] [place] [address] Hedy Singh LPN [address] [place] [phone] Social History Tobacco Use Types Packs/Day Years [...] Routine [facility] [address] [address] Aditya Cervantes DO [address] [facility] [address] [place], [facility]11 documented as of this encounter Visit Diagnoses Not on filedocumented in this encounter
--- OUTSIDE RECORDS SUMMARY | 2024-12-05 09:47 | XMS_ITS | Encounter Summary ---
Author Organization [facility] Address [address] [place] [address] Care Team Providers Care Woodworking Machine Operator Name Role Phone Unavailable Primary Care Provider Unavailabl e Encounter Details Date Type Department Care Team (Late st Contact Info) Description 06/23/2023 Clinisync Result Encounter [facility] External Department Unsolicited Bruce Cervantes, DO [facility] [place] [address] Social History Tobacco Use Types Packs/Day Years [...] Description 12/13/2024 1:40 PM EDT Routine [facility] OB [address] [facility] [place] [address] Bruce Cervantes [facility] [place] [address] documented as of this encounter Procedures Procedure Name Priority Date/Time Associated Diagnosis Comments US OB TRANSVAGINAL 06/23/2023 10 :07 AM EST documented in this encounter Results * US OB TRANSVAGINAL (06/23/2023 10:07 AM EST) Anatomical Region Laterality Modality Other 06/23/2023 10:0 7 AM EST Narrative 06/23/2023 10:09 AM EST The [address] [address] Ultrasound Report Signed Patient: ESTEFANIA CEDEÑO MR#: [id number] : 1995 Acct:[id number] Age/Sex: 28 / F ADM Date: 06/23/23 Loc: [facility] Attending Dr: Bruce Cervantes D.O. Ordering Physician: Bruce Cervantes D.O. Date of Service: 06/23/23 Procedure(s): US OB transvaginal Accession Number(s): [id number] cc: Bruce Cervantes D.O.; Physician,Non-Staff Roberto The [address] [address] Patient Name: ESTEFANIA CEDEÑO MRN: [id number] date: 1995 Sex: F Assigned Patient Location: [facility] Current Patient Location: [facility] Accession/Order Number: [id number] Exam Date: 06/23/2023 09:30 Report Date: 06/23/2023 10:07 At the request of: BRUCE CERVANTES Procedure: US OB transvaginal EXAMINATION: US OB transvaginal HISTORY: VAGINAL BLEEDING, VIABILITY COMPARISON: 06/11/2023 FINDINGS: Conde intrauterine gestation Gestational sac: 5.37 cm, 11 weeks 2 days CRL: 5.01 cm, 5 days Yolk sac: 0.6 cm Heart rate: 171 bpm Cervix: Closed, 4.0 cm The uterus is normal, anteverted, anteflexed The left ovary is not visualized Clinical age: 11 weeks 6 days Clinical CARTER: 01/06/2024 Ultrasound age: 11 weeks 5 days Ultrasound CARTER: 01/07/2024 US/US OB transvaginal IMPRESSION: Viable conde intrauterine gestation measuring 11 weeks 5 days Electronically authenticated by: KURT STONE Date: 06/23/2023 10:07 Dictated By: Kurt Stone M.D. Signed By: 06/23/23 1009 DD/ 1007 TD/TT: Math Professor: Procedure Note Radiology, Radiologist, - 08/04/2023 The [place] [id number] Ultrasound Report Signed Patient: TRINITY CEDEÑO#: [id number] : 1995Acct:[id number] Age/Sex: 28 / FADM Date: 06/23/23 Loc: [facility] Attending Dr: Bruce Cervantes D.O. Ordering Physician: Bruce Cervantes D.O. Date of Service: 06/23/23 Procedure(s): US OB transvaginal Accession Number(s): [id number] cc: Bruce Cervantes D.O.; Physician,Non-Staff Roberto [place] [id number] Patient Name: ESTEFANIA CEDEÑO MRN: [id number] date: 1995 Sex: F Assigned Patient Location: [facility] Current Patient Location: [facility] Accession/Order Number: [id number] Exam Date: 06/23/2023 09:30 Report Date: 06/23/2023 10:07 At the request of: BRUCE CERVANTES Procedure: US OB transvaginal EXAMINATION: US OB transvaginal HISTORY: VAGINAL BLEEDING, VIABILITY COMPARISON: 06/11/2023 FINDINGS: Conde intrauterine gestation Gestational sac: 5.37 cm, 11 weeks 2 days CRL: 5.01 cm, 5 days Yolk sac: 0.6 cm Heart rate: 171 bpm Cervix: Closed, 4.0 cm The uterus is normal, anteverted, anteflexed The left ovary is not visualized Clinical age: 11 weeks 6 days Clinical CARTER: 01/06/2024 Ultrasound age: 11 weeks 5 days Ultrasound CARTER: 01/07/2024 US/US OB transvaginal IMPRESSION: Viable conde intrauterine gestation measuring 11 weeks 5 days Electronically authenticated by: KURT STONE Date: 06/23/2023 10:07 Dictated By: Kurt Stone M.D. Signed By:06/23/23 1009 DD/ 1007 TD/TT: Math Professor: us Bruce Cervantes DO [facility] Final Result documented in this encounter Visit Diagnoses Not on filedocumented in this encounter
--- OUTSIDE RECORDS SUMMARY | 2024-12-05 09:47 | XMS_ITS | Encounter Summary ---
Author Organization [facility] Address [address] [facility] [place] [address] Care Team Providers Care Put In Beat Adjuster Name Role Phone Unavailable Primary Care Provider Unavailabl e Encounter Details Date Type Department Care Team (Late st Contact Info) Description 10/06/2024 Orders Only [facility] OB [address] [place] [phone] Maria Elena Dolan MA Social History Tobacco Use Types Packs/Day Years [...] Description 12/13/2024 1:40 PM EDT Routine [facility] OB [facility] [place] [address] Aditya Cervantes DO [facility] [place] [address] documented as of this encounter Procedures Procedure Name Priority Date/Time Associated Diagnosis Comments PAP SMEAR Routine 09/26/2024 12:00 AM EDT documented in this encounter Results * Pap Smear (09/26/2024 12:00 AM EDT) Swab Cervical swab / Unknown Aditya Cervantes DO LAB CYTOLOGY ORDERABLES Final Re sult EXTERNAL LAB documented in this encounter Visit Diagnoses Not on filedocumented in this encounter
--- OUTSIDE RECORDS SUMMARY | 2024-12-05 09:47 | XMS_ITS | Encounter Summary ---
Author Organization [facility] Address [address] [place] [address] Care Team Providers Care Rag Grader Name Role Phone Unavailable Primary Care Provider Unavailabl e Encounter Details Date Type Department Care Team (Late st Contact Info) Description 09/19/2024 Abstract [facility] OB [address] [place] [address] Aditya Cervantes [facility] [place], [facility]11 Social History Tobacco Use Types Packs/Day Years [...] Description 12/13/2024 1:40 PM EDT Routine [facility] OB [address] [place] [address] Aditya Cervantes [facility] [place], [place] [id number] documented as of this encounter Visit Diagnoses Not on filedocumented in this encounter
--- OUTSIDE RECORDS SUMMARY | 2024-12-05 09:47 | XMS_ITS | Encounter Summary ---
Author Organization [facility] Address [address] [place] [address] Care Team Providers Care Composition Instructor Name Role Phone Unavailable Primary Care Provider Unavailabl e Encounter Details Date Type Department Care Team (Late st Contact Info) Description 11/28/2024 Abstract [facility] OB [address] [facility] [address] Aditya Cervantes [facility] [place], [facility]11 Social History Tobacco Use Types Packs/Day [...] Description 12/13/2024 1:40 PM EDT Routine [facility] OB [address] [place] [address] Aditya Cervantes [address] [place] [place], [place] [address] documented as of this encounter Visit Diagnoses Not on filedocumented in this encounter
--- OUTSIDE RECORDS SUMMARY | 2024-12-05 09:47 | XMS_ITS | Encounter Summary ---
Author Organization [facility] Address [address] [place] [address] Care Team Providers Care Shopfitter Name Role Phone Unavailable Primary Care Provider Unavailabl e Encounter Details Date Type Department Care Team (Late st Contact Info) Description 11/22/2024 Bamboo flowsheet [facility] OB [address] [place] [address] Aditya Cervantes, DO [address] [place], [facility]11 Social History Tobacco Use Types Packs/Day [...] PM EDT Routine [facility] B[facility] OB [address] [place] [address] Aditya Cervantes, DO [address], [facility]11 documented as of this encounter Visit Diagnoses Not on filedocumented in this encounter
--- OUTSIDE RECORDS SUMMARY | 2024-12-05 09:47 | XMS_ITS | Encounter Summary ---
Author Organization [facility] Address [address] [place] [address] Care Team Providers Care Journeyman Operator Assistant Name Role Phone Unavailable Primary Care Provider Unavailabl e Encounter Details Date Type Department Care Team (Late st Contact Info) Description 12/23/2023 Clinisync Result Encounter [facility] External Department Unsolicited Bruce Cervantes, DO [facility] [place] [address] Social History Tobacco Use Types Packs/Day Years [...] PM EDT Routine [facility] OB [address] [facility] [address] Bruce Cervantes [facility] [place] [address] documented as of this encounter Procedures Procedure Name Priority Date/Time Associated Diagnosis Comments US OB BPP W NON-STRESS 12/23/2023 10:41 AM EDT documented in this encounter Results * US OB BPP W NON-STRESS (12/23/2023 10:41 AM EDT) Anatomical Region Laterality Modality Other 12/23/2023 10:4 1 AM EDT Narrative 12/23/2023 10:43 AM EDT The [address] [address] Ultrasound Report Signed Patient: ESTEFANIA CEDEÑO MR#: [id number] : 1995 Acct:[id number] Age/Sex: 28 / F ADM Date: 12/23/23 Loc: [facility] [address]: Bruce Cervantes D.O. Ordering Physician: Bruce Cervantes D.O. Date of Service: 12/23/23 Procedure(s): US OB BPP w non-stress Accession Number(s): [id number] cc: Bruce Cervantes D.O.; Physician,Non-Staff Roberto The [place] [id number] Patient Name: ESTEFANIA CEDEÑO MRN: [id number] date: 1995 Sex: F Assigned Patient Location: [facility] Current Patient Location: [facility] Accession/Order Number: [id number] Exam Date: 12/23/2023 10:00 Report Date: 12/23/2023 10:41 At the request of: BRUCE CERVANTES Procedure: US OB BPP w non-stress EXAMINATION: US OB BPP w non-stress HISTORY: Excessive growth COMPARISON: No relevant comparison available. TECHNIQUE: Ultrasound biophysical profile was performed in the radiology department. non-reactive stress testing was performed by nursing staff in the birthing center. FINDINGS: BREATHING MOVEMENTS: 2 GROSS BODY MOVEMENTS: 2 TONE: 2 QUALITATIVE AMNIOTIC FLUID VOLUME: 2 PRESENTATION: CEPHALIC HEART RATE: 135.68 bpm AMNIOTIC FLUID VOLUME: 16.0 cm GESTATIONAL AGE: 38 weeks 0 days US/US OB BPP w non-stress IMPRESSION: Total biophysical profile score: 8 Electronically authenticated by: KURT STONE Date: 12/23/2023 10:41 Dictated By: Kurt Stone M.D. Signed By: 12/23/23 1043 DD/ 1041 TD/TT: Sales Negotiator: Procedure Note Radiology, Radiologist, - 12/23/[address] [address] Ultrasound Report Signed Patient: BETTY CEDEÑOR#: [id number] : 1995Acct:[id number] Age/Sex: 28 / FADM Date: 12/23/23 Loc: [facility] 254-[address]: Bruce Cervantes D.O. Ordering Physician: Bruce Cervantes D.O. Date of Service: 12/23/23 Procedure(s): US OB BPP w non-stress Accession Number(s): [id number] cc: Bruce Cervantes D.O.; Physician,Non-Staff Roberto The [place] [id number] Patient Name: ESTEFANIA CEDEÑO MRN: [id number] date: 1995 Sex: F Assigned Patient Location: [facility] Current Patient Location: [facility] Accession/Order Number: [id number] Exam Date: 12/23/2023 10:00 Report Date: 12/23/2023 10:41 At the request of: BRUCE CERVANTES Procedure: US OB BPP w non-stress EXAMINATION: US OB BPP w non-stress HISTORY: Excessive growth COMPARISON: No relevant comparison available. TECHNIQUE: Ultrasound biophysical profile was performed in the radiology department. non-reactive stress testing was performed by nursingstaff in the birthing center. FINDINGS: BREATHING MOVEMENTS: 2 GROSS BODY MOVEMENTS: 2 TONE: 2 QUALITATIVE AMNIOTIC FLUID VOLUME: 2 PRESENTATION: CEPHALIC HEART RATE: 135.68 bpm AMNIOTIC FLUID VOLUME: 16.0 cm GESTATIONAL AGE: 38 weeks 0 days US/US OB BPP w non-stress IMPRESSION: Total biophysical profile score: 8 Electronically authenticated by: KURT STONE Date: 12/23/2023 10:41 Dictated By: Kurt Stone M.D. Signed By:12/23/23 1043 DD/ 1041 TD/TT: Sales Negotiator: us Bruce Cervantes DO [facility] Final Result documented in this encounter Visit Diagnoses Not on filedocumented in this encounter
--- OUTSIDE RECORDS SUMMARY | 2024-12-05 09:47 | XMS_ITS | Encounter Summary ---
Author Organization [facility] Address [address] [place] [address] Care Team Providers Care Bakery Assistant Name Role Phone Unavailable Primary Care Provider Unavailabl e Encounter Details Date Type Department Care Team (Late st Contact Info) Description 10/04/2023 Clinisync Result Encounter [facility] External Department Unsolicited Bruce Cervantes, DO [address] [place] [address] Social History Tobacco Use Types Packs/Day Years [...] PM EDT Routine [facility] OB [address] [facility] [place] [phone] Bruce Cervantes, DO [address] [place] [address] documented as of this encounter Procedures Procedure Name Priority Date/Time Associated Diagnosis Comments US RIGHT UPPER QUADRANT 10/04/2023 2:02 PM EDT [facility] LIPASE Routine 10/04/2023 1:40 PM EDT [facility] CMP (CMP) (FOR REMOTE [facility] USE) Routine 10/04/2023 1:40 PM EDT ALL AMYLASE Routine 10/04/2023 1:40 PM EDT OVA + PARASITE EXAM Routine 10/04/2023 1 :00 PM EDT documented in this encounter Results * US RIGHT UPPER QUADRANT (10/04/2023 2:02 PM EDT) Anatomical Region Laterality Modality Other 10/04/2023 2:02 PM EDT Narrative 10/04/2023 2:05 [place] [address] Ultrasound Report Signed Patient: ESTEFANIA CEDEÑO MR#: [id number] : 1995 Acct:[id number] Age/Sex: 28 / F ADM Date: Loc: [facility] 257-[address]: Bruce Cervantes D.O. Ordering Physician: Bruce Cervantes D.O. Date of Service: 10/04/23 Procedure(s): US right upper quadrant Accession Number(s): [id number] cc: Bruce Cervnates D.O.; Physician,Non-Staff M.DAsiya [place] [address] Patient Name: ESTEFANIA CEDEÑO MRN: [id number] date: 1995 Sex: F Assigned Patient Location: [facility] Current Patient Location: [facility] Accession/Order Number: [id number] Exam Date: 10/04/2023 13:10 Report Date: 10/04/2023 14:02 At the request of: BRUCE CERVANTES Procedure: US right upper quadrant EXAM: US right upper quadrant HISTORY: Gallbladder pain COMPARISON: None. TECHNIQUE: Grayscale and color ultrasound FINDINGS: The liver is normal in size, contour and echotexture with no focal mass. Hepatopedal flow in the main portal vein The visualized pancreas is normal. The gallbladder is normal. The wall measures 1.8 mm. Negative sonographic Clarke sign. The common bile duct measures 3.5 mm, normal. The right kidney is normal measuring 12.7 x 5.8 x 4.7 cm No free fluid US/US right upper quadrant IMPRESSION: Normal exam Electronically authenticated by: KURT STONE Date: 10/04/2023 14:02 Dictated By: Kurt Stone M.D. Signed By: 10/04/23 1405 DD/ 1402 TD/TT: Machine Adjuster Helper: Procedure Note Radiology, Radiologist, - 10/04/2023 [place] [address] Ultrasound Report Signed Patient: TRINITY CEDEÑO#: [id number] : 1995Acct:[id number] Age/Sex: FADM Date: Loc: [facility] 257-[address]: Bruce Cervantes D.O. Ordering Physician: Bruce Cervantes D.O. Date of Service: 10/04/23 Procedure(s): US right upper quadrant Accession Number(s): [id number] cc: Bruce Cervantes D.O.; Physician,Non-Staff Roberto The [place] [address] Patient Name: ESTEFANIA CEDEÑO MRN: [facility]:[id number] date: 1995 Sex: F Assigned Patient Location: [facility] Current Patient Location: [facility] Accession/Order Number: [id number] Exam Date: 10/04/2023 13:10 Report Date: 10/04/2023 14:02 At the request of: BRUCE CERVANTES Procedure: US right upper quadrant EXAM: US right upper quadrant HISTORY: Gallbladder pain COMPARISON: None. TECHNIQUE: Grayscale and color ultrasound FINDINGS: The liver is normal in size, contour and echotexture with no focal mass. Hepatopedal flow in the main portal vein The visualized pancreas is normal. The gallbladder is normal. The wall measures 1.8 mm. Negative sonographic Clarke sign. The common bile duct measures 3.5 mm, normal. The right kidney is normal measuring 12.7 x 5.8 x 4.7 cm No free fluid US/US right upper quadrant IMPRESSION: Normal exam Electronically authenticated by: KURT STONE Date: 10/04/2023 14:02 Dictated By: Kurt Stone M.D. Signed By:10/04/23 1405 DD/ 1402 TD/TT: Machine Adjuster Helper: us Bruce Billy DO [facility] IMAG[facility] Final Result * [facility] LIPASE (10/04/2023 1:40 PM EDT) LIPASE 30.0 16.0 - 77.0 U/L TB 10/04/2023 1:40 PM EDT 10/04/2023 1:45 PM EDT Narrative [facility] - 10/04/2023 2:26 PM EDT Bruce Billy DO [facility] Final Result [facility] TB * (ABNORMAL) [facility] CMP (CMP) (FOR REMOTE [facility] USE) (10/04/2023 1:40 PM EDT) SODIUM 137 136 - 145 mmol/L [facility] POTASSIUM 3.5 3.5 - 5.1 mmol/L [facility] CHLORIDE 106 98 - 107 mmol/L [facility] CARBON DIOXIDE 20.4(L) 21.0 - 32.0 mmol/L [facility] ANION GAP 14.1 [facility] GLUCOSE 72(L) 74 - 106 mg/dL [facility] BLOOD UREA NITROGEN 6.0(L) 7.0 - 18.0 mg/dL [facility] CREATININE 0.39(L) 0.55 - 1.02 mg/dL [facility] TBH EGFR-AF CUBAN >60 >=60 TBH TBH EGFR-NON AF CUBAN >60 >=60 [facility] BUN CREATININE RATIO 15.4 [facility] CALCIUM 8.3(L) 8.5 - 10.1 mg/dL [facility] BILIRUBIN TOTAL 0.3 0.2 - 1.0 mg/dL [facility] ASPARTATE AMINO TRANSFERASE 14(L) 15 - 37 U/L [facility] ALANINE AMINOTRANSFERASE 16 14 - 59 U/L [facility] ALKALINE PHOSPHATASE 55 46 - 116 U/L [facility] TOTAL PROTEIN 5.9(L) 6.4 - 8.2 g/dL [facility] ALBUMIN LEVEL 2.3(L) 3.4 - 5.0 g/dL [facility] GLOBULIN 3.6 g/dL [facility] ALBUMIN GLOBULIN RATIO 0.6 TB 10/04/2023 1:40 PM EDT 10/04/2023 1:45 PM EDT Narrative [facility] - 10/04/2023 2:26 PM EDT us Bruce Billy DO [facility] Final Result Performing Organization Address [facility] Co de Phone Number [facility] * ALL AMYLASE (10/04/2023 1:40 PM EDT) AMYLASE 58 25 - 115 U/L [facility] 10/04/2023 1:40 PM EDT 10/04/2023 1:45 PM EDT Narrative [facility] - 10/04/2023 2:14 PM EDT us Bruce Billy DO CL[facility] Final Result Performing Organization Address [facility] Number [facility] * OVA + PARASITE EXAM (10/04/2023 1:00 PM EDT) OVA + PARASITE EXAM Final report . [facility] Comment: These results were obtained using wet preparation(s) and trichrome stained smear. This test does not include testing for Cryptosporidium parvum, Cyclospora, or Microsporidia. RESULT 1 Comment . [facility] Comment: No ova, cysts, or parasites seen. One negative specimen does not rule out the possibility of a parasitic infection. Performed at: [address] [id number] Wire Rope Sling Maker: Rubén Ellison PhD, Phone: [phone] 10/04/2023 1:00 PM EDT 10/04/2023 1:52 PM EDT Narrative [facility] - 10/06/2023 9:09 PM EDT us Bruce Billy DO LAB BLOOD ORDERABLES Final Resul t Performing Organization Address [facility] Co de Phone Number [facility] documented in this encounter Visit Diagnoses Not on filedocumented in this encounter
--- OUTSIDE RECORDS SUMMARY | 2024-12-05 09:47 | XMS_ITS | Encounter Summary ---
Author Organization [facility] Address [address] [place] [address] Care Team Providers Care Cleaner Wall Name Role Phone Unavailable Primary Care Provider Unavailabl e Encounter Details Date Type Department Care Team (Late st Contact Info) Description 10/05/2023 Clinisync Result Encounter [facility] External Department Unsolicited Bruce Cervantes, [address] [place] [address] Social History Tobacco Use Types Packs/Day Years [...] EDT Routine [facility] [address] [place] [phone] Bruce Cervantes [facility] [place] [address] documented as of this encounter Procedures Procedure Name Priority Date/Time Associated Diagnosis Comments CT ABDOMEN/PELVIS WO CONT 10/05/2023 8:17 AM EDT documented in this encounter Results * CT ABDOMEN/PELVIS WO CONT (10/05/2023 8:17 AM EDT) Anatomical Region Laterality Modality Radiographic Mari ging 10/05/2023 8:17 AM EDT Narrative 10/05/2023 8:20 [place] [address] CT Scan Report Signed Patient: ESTEFANIA CEDEÑO MR#: [id number] : 1995 Acct:[id number] Age/Sex: 28 / F ADM Date: Loc: [facility] 257-[address]: Bruce Cervantes D.O. Ordering Physician: Bruce Cervantes D.O. Date of Service: 10/05/23 Procedure(s): CT abdomen pelvis wo con Accession Number(s): [id number] cc: Physician,Non-Staff M.DAsiya [place] [address] Patient Name: ESTEFANIA CEDEÑO MRN: [id number] date: 1995 Sex: F Assigned Patient Location: [facility] Current Patient Location: [facility] Accession/Order Number: [id number] Exam Date: 10/05/2023 07:38 Report Date: 10/05/2023 08:17 At the request of: BRUCE CERVANTES Procedure: CT abdomen pelvis wo con EXAMINATION: CT abdomen pelvis wo con HISTORY: RUQ Pain, N/D COMPARISON: No relevant comparison available. TECHNIQUE: Axial, Coronal, and Sagittal images were obtained without and/or with IV contrast as indicated by examination type. Dose reduction techniques were achieved by using automated exposure control and/or adjustment of mA and/or kV according to patient size and/or use of iterative reconstruction technique. FINDINGS: LUNG BASES: No visible pulmonary or pleural disease. LIVER: No enlargement, atrophy, suspicious density, or significant focal lesion. BILIARY: No dilatation or calcification. PANCREAS: No lesion, fluid collection, or abnormal duct dilatation. SPLEEN: No enlargement or focal lesion. ADRENALS: No mass or enlargement. KIDNEYS: No mass, obstruction, or calcification. BOWEL/MESENTERY: Multiple fluid levels throughout the colon without appreciable wall thickening or inflammatory changes. No visible mass, obstruction, or bowel wall thickening. Prominent appendicolith at base of appendix, but no appendicitis. AORTA/VASCULAR: No aneurysm or dissection. RETROPERITONEUM: No mass or adenopathy. LYMPH NODES: No adenopathy. URINARY BLADDER: No visible focal wall thickening, lesion, or calculus. PELVIC ORGANS: Intrauterine consistent with patient history. ABDOMINAL WALL: No mass or hernia. BONES: No bony lesion or fracture. OTHER: Negative. CT/CT abdomen pelvis wo con IMPRESSION: 1. Air and fluid-filled colon without appreciable wall thickening or obstruction; possible enteritis or mild colitis. 2. Intrauterine . Electronically authenticated by: ED KRUEGER Date: 10/05/2023 08:17 Dictated By: Ed Krueger M.D. Signed By: 10/05/23819 DD/ 6 TD/TT: Travel Registered Nurse Oncology: Procedure Note Radiology, Radiologist, MD - 10/05/2023 [place] [address] CT Scan Report Signed Patient: TRINITY CEDEÑO#: [id number] : 1995Acct:[id number] Age/Sex: Date: Loc: [facility] 257-[address]: Bruce Cervantes D.O. Ordering Physician: Bruce Cervantes D.O. Date of Service: 10/05/23 Procedure(s): CT abdomen pelvis wo con Accession Number(s): [id number] cc: Physician,Non-Staff Roberto The [place] [address] Patient Name: ESTEFANIA CEDEÑO MRN: [id number] date: 1995 Sex: F Assigned Patient Location: [facility] Current Patient Location: [facility] Accession/Order Number: [id number] Exam Date: 10/05/2023 07:38 Report Date: 10/05/2023 08:17 At the request of: BRUCE CERVANTES Procedure: CT abdomen pelvis wo con EXAMINATION: CT abdomen pelvis wo con HISTORY: RUQ Pain, N/D COMPARISON: No relevant comparison available. TECHNIQUE: Axial, Coronal, and Sagittal images were obtained withoutand/or with IV contrast as indicated by examination type. Dose reductiontechniques were achieved by using automated exposure control and/or adjustment of mA and/or kV according to patient size and/or use of iterative reconstruction technique. FINDINGS: LUNG BASES: No visible pulmonary or pleural disease. LIVER: No enlargement, atrophy, suspicious density, or significant focal lesion. BILIARY: No dilatation or calcification. PANCREAS: No lesion, fluid collection, or abnormal duct dilatation. SPLEEN: No enlargement or focal lesion. ADRENALS: No mass or enlargement. KIDNEYS: No mass, obstruction, or calcification. BOWEL/MESENTERY: Multiple fluid levels throughout the colon without appreciable wall thickening or inflammatory changes. No visible mass, obstruction, or bowel wall thickening. Prominent appendicolith at base of appendix, but no appendicitis. AORTA/VASCULAR: No aneurysm or dissection. RETROPERITONEUM: No mass or adenopathy. LYMPH NODES: No adenopathy. URINARY BLADDER: No visible focal wall thickening, lesion, or calculus. PELVIC ORGANS: Intrauterine consistent with patient history. ABDOMINAL WALL: No mass or hernia. BONES: No bony lesion or fracture. OTHER: Negative. CT/CT abdomen pelvis wo con IMPRESSION: 1. Air and fluid-filled colon without appreciable wall thickening or obstruction; possible enteritis or mild colitis. 2. Intrauterine . Electronically authenticated by: ED KRUEGER Date: 10/05/2023 08:17 Dictated By: Ed Krueger M.D. Signed By:10/05/23819 DD/ 6 TD/TT: Travel Registered Nurse Oncology: Bruce Cervantes DO IMG XR PROCEDURES Final Result documented in this encounter Visit Diagnoses Not on filedocumented in this encounter
--- OUTSIDE RECORDS SUMMARY | 2024-12-05 09:48 | XMS_ITS | Encounter Summary ---
Author [facility] Address [address] [place] [address] Care Team Providers Care Fibre Technologist Name Role Phone Billie Sharpe MARKET INTELLIGENCE CONSULTANT - ELECTROMECHANICAL TECHNOLOGIST Primary Care Provider Reason for Referral * Other (Routine) - Closed Specialty Diagnoses / Procedures Referred By Ryder choi Referred To Contact Radiology Diagnoses Abdominal pain, unspecified abdominal location Abdominal bloating Procedures US PELVIS COMPLETE NON-OB TRANSABDOMINAL AND TRANSVAGINAL Aditya Cervantes MD [address] [address] Phone: tel: Referral ID Status Reason Start Date Expiration Date Visits Re quested Visits Authorized [id number] Closed 03/24/2023 03/23/2024 1 1 Encounter Details Date Type Department Care Team (Late st Contact Info) Description 03/24/2023 Transcribe Orders [place] Pre Access [address] [place] [address] Aditya Cervantes MD [facility] [place] [address] Abdominal pain, unspecified abdominal location (Primary Dx); Abdominal bloating Social History Tobacco Use Types Packs/Day Years Used Date Smoking Tobacco: Never Smokeless Tobacco: Never Alcohol Use Standard Drinks/Week Comments Yes 0 (1 standard drink = 0.6 oz pur e alcohol) occassionally Interpersonal Safety Domain Source: IP Abuse Scr eening Answer Date Recorded Read-Only, Retired: Physical Abuse Denies 01/20/2023 Read-Only, Retired: Verbal Abuse Denies 01/20/2023 Read-Only, Retired: Emotional abuse Denies 01/20/2023 Read-Only, Retired: Financial Abuse Denies 01/20/2023 Read-Only, Retired: Sexual abuse Denies 01/20/2023 Comments No Sex and Gender Information Value Date Recorded Sex Assigned at Not on file Legal Sex Female 8:50 AM EDT Gender Identity Not on file Sexual Orientation Not on file Occupation Industry Job Start Date Job End Date Not on file Not on file Not on file Not on file documented as of this encounter Plan of Treatment Not on file documented as of this encounter Results * US PELVIS COMPLETE NON-OB TRANSABDOMINAL AND TRANSVAGINAL (03/24/2023 5:16 PM EDT) Anatomical Region Laterality Modality Ultrasound 03/24/2023 5:20 PM EDT Impressions 03/25/2023 8:30 AM EDT 1. Endometrial stripe thickness measures 9 mm, within normal limits. 2. Dominant left ovarian follicle measuring 1.4 cm. 2.2 cm simple right ovarian cyst. 3. Anteverted uterus. RECOMMENDATIONS: Multiple ovarian cysts. Most significant: 2.2 cm right ovarian follicle, normal finding. No follow-up imaging is recommended. Reference: Radiology 2019 Nov;293(2):359-371 Narrative 03/25/2023 8:30 AM EDT EXAMINATION: TRANSABDOMINAL AND TRANSVAGINAL PELVIC ULTRASOUND 03/24/2023 [...] Free Fluid: No evidence of free fluid. Procedure Note Yousif Lamb MD - 03/25/2023 EXAMINATION: TRANSABDOMINAL AND TRANSVAGINAL PELVIC ULTRASOUND 03/24/2023 [...] imaging is recommended. Reference: Radiology 2019 Nov;293(2):359-371 us Aditya Cervantes MD G US ORDERABLES Final R esult documented in this encounter Visit Diagnoses Diagnosis Abdominal pain, unspecified abdominal location- Primary Abdominal bloating Flatulence, eructation, and gas pain Abdominal pain, unspecified abdominal location Abdominal bloating Flatulence, eructation, and gas pain documented in this encounter Care Teams Fibre Technologist Relationship Specialty Start Date End Date Billie Sharpe, MARKET INTELLIGENCE CONSULTANT - ELECTROMECHANICAL TECHNOLOGIST PCP - General Family Medicine 04/08/20 documented as of this encounter
--- OUTSIDE RECORDS SUMMARY | 2024-12-05 09:48 | XMS_ITS | Encounter Summary ---
Author Organization [facility] Address [address] [place] [address] Care Team Providers Care Felt Hanger Name Role Phone Unavailable Primary Care Provider Unavailabl e Encounter Details Date Type Department Care Team (Late st Contact Info) Description 01/11/2024 Abstract [facility] OB [address] [place] [address] Aditya Cervantes [facility] [place], [facility] Social History Tobacco Use Types Packs/Day Years Used Date Smoking Tobacco: Never Assessed Comments No Sex and Gender Information Value Date Recorded Sex Assigned at Not on file Legal Sex Female 3:04 PM EDT Gender Identity Not on file Sexual Orientation Not on file documented as of this encounter Plan of Treatment Upcoming Encounters Date Type Department Care Team (Late st Contact Info) Description 12/13/2024 1:40 PM EDT Routine [facility] OB [address] [place] [address] Aditya Cervantes [facility] [place], [facility] documented as of this encounter Visit Diagnoses Not on filedocumented in this encounter
--- OUTSIDE RECORDS SUMMARY | 2024-12-05 09:48 | XMS_ITS | Encounter Summary ---
Author Organization [facility] Address [address] [place] [address] Care Team Providers Care Farm Service Adviser Name Role Phone Dell Billie M SAP BW CONSULTANT - VISITOR SERVICES ASSOCIATE Primary Care Provider Reason for Referral * Imaging (Routine) - Closed Specialty Diagnoses / Procedures Referred By Contac t Referred To Contact Radiology Diagnoses Menstrual problem Procedures US NON OB TRANSVAGINAL Dana Akisn MD [address] [place] [address] Phone: tel: fax: [facility] Ultrasound [address] [place] [address] Phone: tel: Referral ID Status Reason Start Date Expiration Date Visits Re quested Visits Authorized [id number] Closed 08/15/2020 08/15/2021 1 1 * Imaging (Routine) - Closed Specialty Diagnoses / Procedures Referred By Contac t Referred To Contact Radiology Diagnoses Menstrual problem Procedures US PELVIS COMPLETE Dana Akins MD [address] [place] [address] Phone: tel: fax: [facility] Ultrasound [address] [place] [address] Phone: tel: Referral ID Status Reason Start Date Expiration Date Visits Re quested Visits Authorized [id number] Closed 08/15/2020 08/15/2021 1 1 Encounter Details Date Type Department Care Team (Latest Contact Info) Description 08/15/2020 Transcribe Orders [facility] Pre Access [address] [place] [address] Dana Akins MD [address] [place] [address] Menstrual problem (Primary Dx) Social History Tobacco Use Types Packs/Day Years Used Date Smoking Tobacco: Never Smokeless Tobacco: Never Alcohol Use Standard Drinks/Week Comments Yes 0 (1 standard drink = 0.6 oz pur e alcohol) occassionally Comments No Sex and Gender Information Value Date Recorded Sex Assigned at Not on file Legal Sex Female 8:50 AM EDT Gender Identity Not on file Sexual Orientation Not on file Occupation Industry Job Start Date Job End Date Not on file Not on file Not on file Not on file documented as of this encounter Plan of Treatment Scheduled Orders Name Type Priority Associated Diagnoses Orde r Schedule US PELVIS COMPLETE Imaging Routine Menstrual problem Expected: 08/15/2020, Expires: 08/15/2021 US NON OB TRANSVAGINAL Imaging Routine Menstrual problem Expected: 08/15/2020, Expires: 08/15/2021 documented as of this encounter Visit Diagnoses Diagnosis Menstrual problem- Primary Unspecified disorder of menstruation and other abnormal bleeding from female genital tract documented in this encounter Care Teams Farm Service Adviser Relationship Specialty Start Date End Date Billie Sharpe, SAP BW CONSULTANT - VISITOR SERVICES ASSOCIATE PCP - General Family Medicine 04/08/20 documented as of this encounter
--- OUTSIDE RECORDS SUMMARY | 2024-12-05 09:48 | XMS_ITS | Clinical Summary ---
Author Organization [facility] Address [address] [address] Care Team Providers Care Salesforce Administrator Name Role Phone Billie Sharpe SENIOR MARKETING SPECIALIST - EPOXY COATINGS INSTALLER Primary Care Provider Allergies Active Allergy Reactions Criticality Noted Date Comments Triamcinolone Other (See Comments) High 10/13/2013 Dimpling of the skin Medications VYVANSE 50 MG capsule TAKE ONE CAPSULE BY MOUTH EVERY MORNING 09/10/2021 Active Active Problems Problem Noted Date Diagnosed Date IUD threads lost 01/20/2023 Herpes labialis 11/20/2014 ADD (attention deficit disorder) 03/05/2014 Mild mood disorder 03/05/2014 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 Overview (11/20/2014): Overview: Documented HSV-1 Encounters Date Type Department Care Team Description 10/17/2024 10:23 AM EDT - 10/17/2024 11:59 PM EDT Hospital Encounter [facility] [address] [place] [address] Discharge Disposition: Home or Self Care from Last 3 Months Immunizations Immunization Administration Dates Next Due TDaP, ADACEL (age 10y-64y), BOOSTRIX (age 10y+), IM, 0.5mL 10/30/2007 Family History Medical History Relation Name Comments Diabetes Father High Blood Pressure Father Breast Cancer Maternal Grandmother Lupus Mother lupus Other Mother lupus Mom hysterectom y-cysts Relation Name Status Comments Brother gh Alive Father Alive Maternal Grandmother Mother lupus Alive Social History Tobacco Use Types Packs/Day Years Used Date Smoking Tobacco: Never Smokeless Tobacco: Never Tobacco Cessation:Counseling Given: Not Answered Alcohol Use Standard Drinks/Week Comments Yes 0 [...] file Not on file Not on file Last Filed Vital Signs Vital Sign Reading Time Taken Comments Blood Pressure 113/72 01/20/2023 12:00 PM EDT Pulse 75 01/20/2023 12:00 PM EDT Temperature 36 C (96.8 F) 01/20/2023 11:27 AM EDT Respiratory Rate 16 01/20/2023 12:00 PM EDT Oxygen Saturation 99% 01/20/2023 12:00 PM EDT Inhaled Oxygen Concentration - - Weight 106.1 kg (234 lb) 01/20/2023 7:36 AM EDT Height 170.2 cm (5' 7 ) 01/20/2023 7:36 AM EDT Body Mass Index 36.65 01/20/2023 7:36 AM EDT Plan of Treatment Health Maintenance Due Date Last Done Comments Depression Screen 2008 Varicella vaccine (1 of 2 - 13+ 2-dose series) 2009 HIV screen 2011 Hepatitis C screen 2014 Hepatitis B vaccine (1 of 3 - 19+ 3-dose series) 2015 DTaP/Tdap/Td vaccine (2 - Td or Tdap) 10/29/2017 10/30/2007 COVID-19 Vaccine ( - 2023-2 5 season) 2024 Flu vaccine (#1) 12/29/2024 Pap smear 01/01/2026 01/01/2023, 10/02/2021, 02/07/2018 Chlamydia/GC screen Discontinued 02/07/2018 HPV vaccine Aged Out No longer eligi ble based on patient's age to complete this topic Hepatitis A vaccine Aged Out No longe r eligible based on patient's age to complete this topic Hib vaccine Aged Out No longer eligi ble based on patient's age to complete this topic Meningococcal (ACWY) vaccine Aged Out No longer eligible based on patient's age to complete this topic Meningococcal B vaccine Aged Out No l onger eligible based on patient's age to complete this topic Pneumococcal 0-49 years Vaccine Aged Out No longer eligible based on patient's age to complete this topic Polio vaccine Aged Out No longer elig ible based on patient's age to complete this topic Procedures Procedure Name Priority Date/Time Associated Diagnosis Comments ALPHA FETOPROTEIN, MATERNAL Routine 10/17/2024 10:23 AM EDT PAINTER ORDNANCE CYTOLOGY Routine 01/01/2023 12:00 AM EDT C.TRACHOMATIS N.GONORRHOEAE DNA, THIN PREP Routine 02/07/2018 1:05 PM EDT Screen for STD (sexually transmitted disease) from Last 3 Months or Most Recently Relevant to Health Maintenance Results * Alpha Fetoprotein, Maternal (10/17/2024 10:23 AM EDT) Due Date SEE NOTE 10/17/2024 10:23 AM EDT [facility] Comment: Results for Estimated Due Date: 03 06 25 Determined by Ultrasound 10/17/2024 10:23 AM EDT [facility] AFP (Alpha Fetoprotein) 36 ng/mL 10/17/2024 10:23 AM EDT [facility] AFP Mom 0.82 10/17/2024 10:23 AM EDT [facility] AFP Interp Screen Neg 10/17/2024 10:23 AM EDT [facility] Comment: (NOTE) INTERPRETATION: SCREEN NEGATIVE for open spina bifida Neural Tube Defects (NTD) Negative Pre-Test Post-Test Cutoff Neural Tube Defects Risks 1:1030 < 1:10447 1:250 Comments: The risk of an open neural tube defect is less than the screening cut-off. This test was developed and its performance characteristics determined by [facility]. It has not been cleared or approved by the US Food and Drug Administration. This test was performed in a CLIA certified laboratory and is intended for clinical purposes. [age]TER [age] 10/17/2024 10:23 AM EDT [facility] Patient Weight 234.0 lbs. 10/17/2024 10:23 AM EDT [facility] Gestational Age 20 wks, 0 days 10/17/2024 10:23 AM EDT [facility] Number of Fetuses Sanchez 025 10:23 AM EDT [facility] Race Nonblack 10/17/2024 10:23 AM EDT [facility] Insulin Req Diabetes No 10/17/2024 10:23 AM EDT [facility] Smoking Unknown 10/17/2024 10:23 AM EDT [facility] History No 10/17/2024 10:23 AM EDT [facility] AFP Specimen See Note 10/17/2024 10:23 AM EDT [facility] Comment: (NOTE) Initial sample Performed By: [facility] [address] [place] [address] Communication Instructor: Pranay Rousseau MD, PhD IA Number: [id number] 10/17/2024 10:2 3 AM EDT 10/17/2024 10:24 AM EDT [facility] Stefan Cervantes MD CHEMISTRY ORDERABLES Francesca l Result [facility] [address] [phone] [facility] [address] [phone] * PAINTER ORDNANCE Cytology (01/01/2023 12:00 AM EDT) Cytology Report Path Number: [id number] DIAGNOSIS Imaged ThinPrep Pap - Cervical (1 monolayer slide): Specimen Adequacy: Satisfactory for evaluation. -Endocervical/tra nsformation zone component is absent. Descriptive Diagnosis: Negative for intraepithelial lesion or malignancy. Fungal organisms morphologically consistent with Sheree species. Cytotech Screener: EY Electronically Signed Out Arsh BELLO(ASCP) ey/01/07/2023 Source of Specimen: A: Imaged ThinPrep Pap - Cervical (1 monolayer slide) HPV Reflex?........... ...........HPV if Abnormal Clinical History Intrauterine device Z01.419 Routine production staff worker exam without abnormal findings High risk HPV DNA testing is requested if the diagnosis is abnormal Processing Lab: [address] [address] Interpretation performed at [address] [address] This Pap Test has been evaluated with [...] result. GYNECOLOGIC CYTOLOGY REPORT Patient [facility]: [facility] Rec[facility] [id number] [facility] ANATOMIC PATHOLOGY [address] [place] [address]. [place], [place] [address] [facility] [employer] CERVICAL MATERIAL 01/01/2023 023 7:03 AM EDT Mychal Nichols MD PATHOLOGY/CYTOLOGY ORDERABLES Final Result [facility] [address] [phone] [facility] * C.trachomatis N.gonorrhoeae DNA, Thin Prep (02/07/2018 1:05 PM EDT) Chlamydia By Thin Prep NEGATIVE NEG 02/09/2018 2:02 PM EDT [employer] Comment: CHLAMYDIA TRACHOMATIS DNA not detected by nucleic acid amplification. This test is intended for medical purposes only and is not valid for the evaluation of suspected sexual abuse or for other forensic purposes. In certain contexts, culture may be required to meet applicable laws and regulations for diagnosis of C. trachomatis and N. gonorrhoeae infections. Per 2014 CDC recommendations, this test does not include confirmation of positive results by an alternative nucleic acid target. N. gonorrhoeae DNA, Thin Prep NEGATIVE NEG 02/09/2018 2:02 PM EDT [facility] Comment: NEISSERIA GONORRHOEAE DNA not detected by nucleic acid amplification. This test is intended for medical purposes only and is not valid for the evaluation of suspected sexual abuse or for other forensic purposes. In certain contexts, culture may be required to meet applicable laws and regulations for diagnosis of C. trachomatis and N. gonorrhoeae infections. Per 2014 CDC recommendations, this test does not include confirmation of positive results by an alternative nucleic acid target. CERVICAL SWAB / Unknown 02/07/2018 1:05 PM EDT 02/07/2018 1:05 PM EDT Pilar Marie SENIOR MARKETING SPECIALIST - CNM MICROBIOLOGY - GENERA L ORDERABLES Final Result [facility] [address] [place] [address], [facility] [phone] [address] [phone] from Last 3 Months or Most Recently Relevant to Health Maintenance Insurance Advance Directives * Full Code (Latest Code Status on File) Date Activated Date Inactivated Comments 01/20/2023 7:21 AM 01/20/2023 3:02 PM Care Teams Salesforce Administrator Relationship Specialty Start Date End Date Billie Sharpe, SENIOR MARKETING SPECIALIST - EPOXY COATINGS INSTALLER PCP - General Family Medicine 04/08/20
--- OUTSIDE RECORDS SUMMARY | 2024-12-05 09:48 | XMS_ITS | Encounter Summary ---
Author Organization [facility] Address [address] [facility] [place] [address] Care Team Providers Care Infrastructure Technician Name Role Phone Unavailable Primary Care Provider Unavailabl e Encounter Details Date Type Department Care Team (Late st Contact Info) Description 04/20/2023 Abstract [facility] OB [address] [place] [address] Trini Aquino LPN [address] [place] [facility]11 Social History Tobacco Use Types Packs/Day Years Used Date Smoking Tobacco: Never Assessed Comments Unknown Sex and Gender Information Value Date Recorded Sex Assigned at Not on file Legal Sex Female 3:04 PM EDT Gender Identity Not on file Sexual Orientation Not on file documented as of this encounter Plan of Treatment Upcoming Encounters Date Type Department Care Team (Late st Contact Info) Description 12/13/2024 1:40 PM EDT Routine [facility] OB [address] [place] [address] Aditya Cervantes DO [address] [facility] Merissa Ventura, [facility]11 documented as of this encounter Visit Diagnoses Not on filedocumented in this encounter
--- OUTSIDE RECORDS SUMMARY | 2024-12-05 09:48 | XMS_ITS | Encounter Summary ---
Author Organization [facility] Address [address] [place] [address] Care Team Providers Care Deckhand Sponge Boat Name Role Phone Billie Sharpe MATERIAL HANDLER 1ST SHIFT - UM SPECIALIST Primary Care Provider Reason for Referral * Imaging (Routine) - Closed Specialty Diagnoses / Procedures Referred By Ryder choi Referred To Contact Radiology Diagnoses Abdominal pain, unspecified abdominal location Pelvic pain in female Procedures CT ABDOMEN PELVIS W WO CONTRAST Additional Contrast? None Aditya Cervantes MD [address] [place] [address] Phone: tel: Referral ID Status Reason Start Date Expiration Date Visits Re quested Visits Authorized [id number] Closed 04/23/2023 04/22/2024 1 1 Encounter Details Date Type Department Care Team (Late st Contact Info) Description 04/23/2023 Transcribe Orders [facility] [address] [place] [address] Aditya Cervantes MD [facility] [place] [address] Abdominal pain, unspecified abdominal location (Primary Dx); Pelvic pain in female Social History Tobacco Use Types Packs/Day Years [...] Type Priority Associated Diagnoses Orde r Schedule CT ABDOMEN PELVIS W WO CONTRAST Additional Contrast? None Imaging Routine Abdominal pain, unspecified abdominal location Pelvic pain in female Expected: 04/23/2023, Expires: 04/23/2024 documented as of this encounter Visit Diagnoses Diagnosis Abdominal pain, unspecified abdominal location- Primary Pelvic pain in female Unspecified symptom associated with female genital organs documented in this encounter Care Teams Deckhand Sponge Boat Relationship Specialty Start Date End Date Billie Sharpe APRN - UM SPECIALIST PCP - General Family Medicine 04/08/20 documented as of this encounter
--- OUTSIDE RECORDS SUMMARY | 2024-12-05 09:48 | XMS_ITS | Encounter Summary ---
Author Organization [facility] Address [address] [place] [address] Care Team Providers Care Knockout Worker Name Role Phone Unavailable Primary Care Provider Unavailabl e Encounter Details Date Type Department Care Team (Late st Contact Info) Description 06/11/2023 Clinisync Result Encounter [facility] External Department Unsolicited Bruce Cervantes, [place] [address] Social History Tobacco Use Types Packs/Day Years [...] Description 12/13/2024 1:40 PM EDT Routine [facility] OB [address] [facility] [address] Bruce Cervantes [facility] [place] [address] documented as of this encounter Procedures Procedure Name Priority Date/Time Associated Diagnosis Comments US OB TRANSVAGINAL 06/11/2023 11 :38 AM EST documented in this encounter Results * US OB TRANSVAGINAL (06/11/2023 11:38 AM EST) Anatomical Region Laterality Modality Other 06/11/2023 11:3 8 AM EST Narrative 06/11/2023 11:41 AM EST [facility] [place] [id number] Ultrasound Report Signed Patient: ESTEFANIA CEDEÑO MR#: [id number] : 1995 Acct:[id number] Age/Sex: 28 / F ADM Date: 06/11/23 Loc: US Attending Dr: Bruce Cervantes D.O. Ordering Physician: Bruce Cervantes D.O. Date of Service: 06/11/23 Procedure(s): US OB transvaginal Accession Number(s): [id number] cc: Bruce Cervantes D.O.; Physician,Non-Staff [place] [facility] [place] [id number] Patient Name: ESTEFANIA CEDEÑO MRN: [id number] date: 1995 Sex: F Assigned Patient Location: US Current Patient Location: US Accession/Order Number: [id number] Exam Date: 06/11/2023 10:42 Report Date: 06/11/2023 11:38 At the request of: BRUCE CERVANTES Procedure: US OB transvaginal EXAMINATION: US OB transvaginal HISTORY: Missed menses COMPARISON: No relevant comparison available. FINDINGS: Conde intrauterine gestation Gestational sac: 4.4 cm, 9 weeks 6 days CRL: 3.3 cm, 10 weeks 1 day Yolk sac: 3.8 mm Heart rate: 170 minute Cervix: Closed, 5.6 cm Area of perigestational heterogeneous echogenicity measuring 2.6 x 0.7 x 1.5 cm The right ovary measures 4.2 x 3.0 x 2.4 cm. Cystic area likely corpus luteal cyst The left ovary is not visualized Gestational age: 9 weeks 2 days Gestational age: 801/12/2024 Ultrasound age: 10 weeks 1 day Ultrasound CARTER: 01/06/2024 US/US OB transvaginal IMPRESSION: Viable conde intrauterine gestation measuring 10 weeks 1 day 2.6 cm subchorionic hematoma Electronically authenticated by: KURT STONE Date: 06/11/2023 11:38 Dictated By: Kurt Stone M.D. Signed By: 06/11/23 1141 DD/ 1138 TD/TT: Fence Builder: Procedure Note Radiology, Radiologist, MD - 06/11/2023 [place] [address] Ultrasound Report Signed Patient: TRINITY CEDEÑO#: [id number] : 1995Acct:[id number] Age/Sex: 28 / FADM Date: 06/11/23 Loc: US Attending Dr: Bruce Cervantes D.O. Ordering Physician: Bruce Cervantes D.O. Date of Service: 06/11/23 Procedure(s): US OB transvaginal Accession Number(s): [id number] cc: Bruce Cervantes D.O.; Physician,Non-Staff Roberto [facility] [place] [id number] Patient Name: ESTEFANIA CEDEÑO MRN: [id number] date: 1995 Sex: F Assigned Patient Location: US Current Patient Location: US Accession/Order Number: [id number] Exam Date: 06/11/2023 10:42 Report Date: 06/11/2023 11:38 At the request of: BRUCE CERVANTES Procedure: US OB transvaginal EXAMINATION: US OB transvaginal HISTORY: Missed menses COMPARISON: No relevant comparison available. FINDINGS: Conde intrauterine gestation Gestational sac: 4.4 cm, 9 weeks 6 days CRL: 3.3 cm, 10 weeks 1 day Yolk sac: 3.8 mm Heart rate: 170 minute Cervix: Closed, 5.6 cm Area of perigestational heterogeneous echogenicity measuring 2.6 x 0.7 x1.5 cm The right ovary measures 4.2 x 3.0 x 2.4 cm. Cystic area likely corpusluteal cyst The left ovary is not visualized Gestational age: 9 weeks 2 days Gestational age: 801/12/2024 Ultrasound age: 10 weeks 1 day Ultrasound CARTER: 01/06/2024 US/US OB transvaginal IMPRESSION: Viable conde intrauterine gestation measuring 10 weeks 1 day 2.6 cm subchorionic hematoma Electronically authenticated by: KURT STONE Date: 06/11/2023 11:38 Dictated By: Kurt Stone M.D. Signed By:06/11/23 1141 DD/ 1138 TD/TT: Fence Builder: us Bruce Cervantes DO [facility] Final Result documented in this encounter Visit Diagnoses Not on filedocumented in this encounter
--- OUTSIDE RECORDS SUMMARY | 2024-12-05 09:48 | XMS_ITS | Encounter Summary ---
Author Organization [facility] Address [address] [place] [address] Care Team Providers Care Cast Iron Dipper Name Role Phone Unavailable Primary Care Provider Unavailabl e Encounter Details Date Type Department Care Team (Late st Contact Info) Description 01/03/2024 Abstract [facility] OB [address] [place] [address] Aditya Cervantes [facility] [place], [facility] Social History Tobacco Use Types Packs/Day Years [...] Description 12/13/2024 1:40 PM EDT Routine [facility] OB [address] [place] [address] Aditya Cervantes [facility] [place], [facility] documented as of this encounter Visit Diagnoses Not on filedocumented in this encounter
[2024-12-05 11:02] LABS: Hematocrit 34.3 % (36.0-48.0); Hemoglobin 11.5 g/dL (12.0-16.0); Immature Granulocytes Abs Auto 0.08 10^3/uL (0.00-0.03); Immature Granulocytes Pct Auto 0.7 % (0.0-0.5); Lymphocytes Absolute Auto 2.1 10^3/uL (1.2-3.8); Mean Corpuscular HGB Conc 33.5 g/dL (29.9-35.2); Mean Corpuscular Hemoglobin 27.8 pg (26.7-34.0); Mean Corpuscular Volume 82.9 fL (81.0-99.0); Platelet Count 140 10^3/uL (150-450); Red Blood Count 4.14 10^6/uL (4.20-5.40); White Blood Count 11.3 10^3/uL (4.0-11.0)
[2024-12-05 11:16] LABS: Glucose 1 Hour 176 mg/dL (<130)
== END 2024-12-05 09:44 | disposition home or self-care (01) ==
PROVIDERS: Visit Provider Obstetrics & Gynecology
DX: Z13.1 Encounter for screening for diabetes mellitus (principal)
CPT/HCPCS: 36415; 82950; 85025

== ENCOUNTER 2024-12-05 09:48 | Outpatient (OUT) | payer MEDICAID, SELFPAY ==
--- OUTSIDE RECORDS SUMMARY | 2024-11-22 13:52 | XMS_ITS ---
Author Name Auto Generated Organization OHIP Care Team Providers Care Director Of Litigation Name Role Phone BRUCE CARD Attending Unavailable KYAW, BRUCE Attending Unavailable BIANKA, SUSIE Attending Unavailable KYAW, BRUCE Attending Unavailable BIANKA, SUSIE Attending Unavailable BIANKA, SUSIE Attending Unavailable BIANKA, SUSIE Attending Unavailable BIANKA, SUSIE Attending Unavailable BIANKA, SUSIE Attending Unavailable BIANKA, SUSIE Attending Unavailable KYAW, BRUCE Attending Unavailable BIANKA, SUSIE Attending Unavailable KYAWBOBBY ANTONY ANGELICA Referring Unavailable MIGUEL HOLLEY Primary Care Unavailable PROBLEMS DATE TYPE CONDITION / CODE ATTENDING STATUS [facility] 10/17/2024 Admitting diagnosis 17 weeks ges tation of / Z3A.17(ICD-10) NA [facility] PROCEDURES No Procedure Records Found RESULTS AFP, MATERNAL Collected: 10/17/2024 10:23 AM Status: F Source: [facility] TYPE CODE TESTS RESULT OUT OF RANGE REFERENCE UNITS LAB DUEDAT(LOINC) Due Date SEE NOTE Result Comment: Results for Estimated Due Date: 03 06 25 LAB DETBY(LOINC) Determined by Ultrasound LAB PTAFP(LOINC) Patient's AFP 36 ng/mL LAB MOMAFP(LOINC) MoM for AFP 0.82 LAB AFPINT(LOINC) Interpretation Screen Neg Result Comment: (NOTE) INTERPRETATION: SCREEN NEGATIVE for open spina bifida Neural Tube Defects (NTD) Negative Pre-Test Post-Test Cutoff Neural Tube Defects Risks 1:1030 < 1:78484 1:250 Comments: The risk of an open neural tube defect is less than the screening cut-off. This test was developed and its performance characteristics determined by [facility]. It has not been cleared or approved by the US Food and Drug Administration. This test was performed in a CLIA certified laboratory and is intended for clinical purposes. LAB MAGE(LOINC) [age] LAB MTWGHT(LOINC) Maternal Weight 234.0 lbs. LAB RUIZ(LOINC) Gestat Age (exact) 20 wks, 0 days LAB NUMFET(LOINC) Number of Fetuses Sanchez LAB MTRACE(LOINC) Maternal Race Nonblack LAB MDIAB([facility]) Ins Req Matern Diab No LAB SMOKE(LOINC) Smoking Unknown LAB FHXNTD(LOINC) Family History No LAB AFPSPC([facility]) Specimen See Note Result Comment: (NOTE) Initial sample Performed By: [facility] [address] [place] [address] University Registrar: Pranay Rousseau MD, PhD CLIA Number: [id number] Performed By: #### AAFPM ### # [facility] [address] [place] [address] Nozzle And Sleeve Worker: Dallas Xiong MD US OB 14+ WEEKS ANATOMY SCAN Observed: 0 09/26/2024 10:14 AM Status: F Source: [facility] EPIC Order Comment: US OB ANATOMY SINGLE W US OB CERVICAL LENGTH Estimated Date of Delivery: 03/06/25 Gestational Age as of 09/26/2024: 17w0d EXAM: US OB 14+ WEEKS ANATOM Y SCAN HISTORY: anatomy. COMPARISON: Ob ultrasound 08/04/2024. TECHNIQUE: Two-dimensional transabdominal grayscale ultrasound imaging of the pelvis was performed. FINDINGS: Gestation: Single Presentation: Cephalic Cardiac Activity: 143 beats per minute Placental Location: Anterior with no sonographic abnormalities identified. Distance from Placental Tip to Cervix: 3.2 cm Cervical Length: 4.3 cm Amniotic Fluid: Appears adequate MEASUREMENTS: BPD: 4.8 cm EGA: 20 weeks 3 days HC: 18.4 cm EGA: 20 weeks 5 days AC: 16.3 cm EGA: 21 weeks 3 days FL: 3.7 cm EGA: 21 weeks 6 days HC/AC Ratio: 1.13 The gestational age by today's ultrasound is 21 weeks 1 days (+/- 10 days gestation). Estimated Weight: 428 grams, +/- 64 grams ( 0 lb 15 oz). Weight Percentile for gestational age: 64 % ANATOMY C-Spine: Unremarkable T-Spine: Unremarkable L-Spine: Unremarkable Sacrum: Unremarkable Four Chamber Heart: Unremarkable LVOT: Unremarkable RVOT: Unremarkable Stomach: Unremarkable Kidneys: Unremarkable Bladder: Unremarkable Diaphragm: Unremarkable Cord insertion: Unremarkable Cord vessels: Three Lateral Ventricles: Unremarkable Cerebellum: Unremarkable Cisterna Magna: Unremarkable Posterior Fossa: Unremarkable Right Femur: Unremarkable Left Femur: Unremarkable Right Tib/Fib: Unremarkable Left Tib/Fib: Unremarkable Right Rad/Ulnar: Unremarkable Left Rad/Ulnar: Unremarkable Right Humerus: Unremarkable Left Humerus: Unremarkable Nose/Lips: Unremarkable Orbits: Unremarkable IMPRESSION: 1. Single, live intrauterine gestation 21 weeks, 1 days by LMP. Today's ultrasound measurements correlate with a gestational age of 21 weeks 1 days. Estimated weight is 428 grams, +/- 64 grams ( 0 lb 15 oz) which correlates to 64 %. CARTER is 04/06/2025. 2. Unremarkable ultrasound of the anatomy. Interpreted by: Electronically signed by PENG JOHNSON II, MD, PHD at 25-Oct-2024 11:18:35 PM [facility] US OB TRANSVAGINAL Observed: 08/04/2024 8:33 AM Status: F Source: [facility] EP[facility] Order Comment: US OB TRANSVA GINAL No LMP recorded. EXAM: US OB TRANSVAGINAL HISTORY: Dating. Unknown LMP. COMPARISON: None available. [...] II, MD, PHD at 05-Aug-2024 09:13:53 AM [facility] ALLERGIES No Allergies Records Found ENCOUNTERS ADMIT/DISCHARGE ACCOUNT NUMBER ADMITTING ENCOUNTER CLASS LOCATION SOURCE 11/22/2024/ 5 [id number] Ambulatory Building:[facility] 10/25/2024/ 5 [id number] Ambulatory Building:[facility] 10/25/2024/ 5 [id number] Ambulatory Building:[facility] 10/17/2024/ 5 [id number] Ambulatory Building:[facility] 09/26/2024/ 5 [id number] Ambulatory Building:[facility] 08/29/2024/ 5 [id number] Ambulatory Building:[facility] 08/04/2024/ 5 [id number] Ambulatory Building:[facility] 08/04/2024/ 5 [id number] Ambulatory Building:[facility] 06/14/2024/ 5 [id number] Ambulatory Building:[facility] 05/17/2024/ 4 [id number] Ambulatory Building:[facility] 04/18/2024/ 4 [id number] Ambulatory Building:[facility] 02/21/2024/ 4 [id number] Ambulatory Building:[facility] 01/10/2024/ 4 [id number] Ambulatory Building:[facility] 12/30/2023/ 4 [id number] Ambulatory Building:[facility] 12/23/2023/ 4 [id number] Ambulatory Building:[facility] 12/15/2023/ 4 [id number] Ambulatory Building:[facility] EP[facility] PAYERS ENCOUNTER GUARANTOR PAYER SUBSCRIBER SOURCE 11/22/2024 TARA HORVATHB: [address] [address]Rtc: () Primary Insurance:[employer] MEDICAID [facility]: [id number] ve Date:2023-09-29 TARA HORVATHB: [id number] [place] [id number] [facility] 10/25/2024 TARA HORVATHB: [id number] [address] [address]Tod: (HP) Primary Insurance:[employer] MEDICAID [facility] Number: [id number] ve Date:2023-09-29 TARA HORVATHB: [id number] [address] [address] [facility] 10/25/2024 TARA HORVATHB: [address] [address]Hmb: (HP) Primary Insurance:[employer] MEDICAID [facility] Number: [id number] ve Date:2023-09-29 TARA HORVATHB: [id number] [address] [address] [facility] 10/17/2024 TARA HORVATHB: [address] [address]Wpj: (HP) Primary Insurance:[employer] MEDICAID [facility] Number: [id number] ve Date:[id number] [address]IX: TARA HORVATHB: [id number] [address] [address]Sqv: (HP) [facility] 09/26/2024 TARA HORVATHB: [address] [address]Afl: (HP) Primary Insurance:[employer] MEDICAID [facility] Number: [id number] ve Date:2023-09-29 TARA HORVATHB: [id number] [address] [address] [facility] 08/29/2024 TARA HORVATHB: [address] [address]Wjd: (HP) Primary Insurance:[employer] MEDICAID [facility] Number: [id number] ve Date:2023-09-29 TARA HORVATHB: [id number] [address] [facility] 08/04/2024 TARA HORVATHB: [address] [address]Dqy: (HP) Primary Insurance:[employer] MEDICAID [facility] Number: [id number] ve Date:2023-09-29 TARA FLOREZDOB: [id number] [address] [address] [facility] 08/04/2024 TARA FLOREZDOB: [address] [address]Hka: (HP) Primary Insurance:[employer] MEDICAID [facility] Number: [id number] ve Date:2023-09-29 TARA FLOREZDOB: [id number] [address] [address] [facility] EPIC 06/14/2024 TARA FLOREZDOB: [address] [address]Rbl: (HP) Primary Insurance:[employer] MEDICAID [facility] Number: [id number] ve Date:2023-09-29 TARA FLOREZDOB: [id number] [address] [address] [facility] 05/17/2024 TARA FLOREZDOB: [address] [address]Xcp: (HP) Primary Insurance:[employer] MEDICAID [facility] Number: [id number] ve Date:2023-09-29 TARA FLOREZDOB: [id number] [address] [address] [facility] 04/18/2024 TARA FLOREZDOB: [address] [address]Dam: (HP) Primary Insurance:[employer] MEDICAID [facility] Number: [id number] ve Date:2023-09-29 TARA FLOREZDOB: [id number] [address] [place] [address] [facility] 02/21/2024 TARA VIKKIDOB: [facility] [address], [place] [address]Ard: (HP) Primary Insurance:[employer] MEDICAID [facility] Number: [id number] ve Date:2023-09-29 TARA ARTUROGELDOB: [id number] [facility] [address] [place] [address] [facility] 01/10/2024 TARA ARTUROGELDOB: [facility] [address], [place] [address]Kss: (HP) Primary Insurance:[employer] MEDICAID [facility] Number: [id number] ve Date:2023-09-29 TARA VIKKIDOB: [id number] [facility] [address] [place] [address] [facility] EP[facility] 12/30/2023 TARA VIKKIDOB: [facility] [address], [place] [address]Hks: (HP) Primary Insurance:[employer] MEDICAID [facility] Number: [id number] ve Date:2023-09-29 TARA ARTUROGELDOB: [id number] [facility] [address] [place] [address] [facility] EP[facility] 12/23/2023 TARA ARTUROGELDOB: [facility] [address], [place] [address]Hnn: (HP) Primary Insurance:[employer] MEDICAID [facility] Number: [id number] ve Date:2023-09-29 TARA ARTUROGELDOB: [id number] [facility] [address] [place] [address] [facility] 12/15/2023 TARAARCENIO FLOREZDOB: [address] [address]Ich: () Primary Insurance:HUMANA niid.toS MEDICAID [facility] Number: [id number] ve Date:2023-09-29 TARA VIKKIDOB: [id number] [address] [address] [facility] EPIC
--- NOTE | 2024-12-05 10:15 | ECG_ITS ---
The [facility] Test Date: 2024-12-05 Pat Name: TARA FLOREZ Department: Room: - Gender: Female Machine Brusher: : 1995 Requested By: [id number] Order Number: [id number] Reading MD: CHANDRIKA HERRERA Measurements Intervals Mark Rate: 68 P: 55 NH: 116 QRS: 72 QRSD: 94 T: 14 QT: 411 QTc: 439 Interpretive Statements SINUS RHYTHM WITH SHORT NH INTERVAL NONSPECIFIC T-WAVE ABNORMALITY No previous ECG available for comparison Electronically Signed On 12-07-2024 9:00:49 EDT by CHANDRIKA HERRERA
== END 2024-12-05 09:49 | disposition home or self-care (01) ==
PROVIDERS: Visit Provider Physician Assistant
DX: R42 Dizziness and giddiness (principal); Z13.1 Encounter for screening for diabetes mellitus
CPT/HCPCS: 36415; 82950; 85025; 93005

== ENCOUNTER 2024-12-12 11:11 | Outpatient (OUT) | payer MEDICAID, SELFPAY ==
--- OUTSIDE RECORDS SUMMARY | 2024-12-12 11:14 | XMS_ITS | Encounter Summary ---
Author Organization [facility] Address [address] [place] [address] Care Team Providers Care Appliance Installer Name Role Phone Unavailable Primary Care Provider Unavailabl e Encounter Details Date Type Department Care Team (Late st Contact Info) Description 12/30/2023 Clinisync Result Encounter [facility] External Department Unsolicited Bruce Cervantes, DO [facility] [place] [address] Social History Tobacco Use Types Packs/Day Years [...] PM EDT Routine [facility] OB [address] [facility] [place] [place] [id number] Bruce Cervantes [place] [address] documented as of this encounter Procedures Procedure Name Priority Date/Time Associated Diagnosis Comments US OB BPP W NON-STRESS 12/30/2023 12:19 PM EDT documented in this encounter Results * US OB BPP W NON-STRESS (12/30/2023 12:19 PM EDT) Anatomical Region Laterality Modality Other 12/30/2023 12:1 9 PM EDT Narrative 12/30/2023 12:22 [place] [address] Ultrasound Report Signed Patient: ESTEFANIA CEDEÑO MR#: [id number] : 1995 Acct:[id number] Age/Sex: 28 / F ADM Date: 12/30/23 Loc: US Attending Dr: Bruce Cervantes D.O. Ordering Physician: Bruce Cervantes D.O. Date of Service: 12/30/23 Procedure(s): US OB BPP w non-stress Accession Number(s): [id number] cc: Bruce Cervantes D.O.; Physician,Non-Staff Roberto [facility] [place] [id number] Patient Name: ESTEFANIA CEDEÑO MRN: [id number] date: 1995 Sex: F Assigned Patient Location: [facility] Current Patient Location: Accession/Order Number: [id number] Exam Date: 12/30/2023 10:17 Report Date: 12/30/2023 [...] Signed By: 12/30/23 1222 DD/ 1219 TD/TT: Sprinkler Helper: Procedure Note Radiology, Radiologist, MD - 12/30/2023 [facility] [place] [id number] Ultrasound Report Signed Patient: TRINITY CEDEÑO#: [id number] : 1995Acct:[id number] Age/Sex: 28 / FADM Date: 12/30/23 Loc: US Attending Dr: Bruce Cervantes D.O. Ordering Physician: Bruce Cervantes D.O. Date of Service: 12/30/23 Procedure(s): US OB BPP w non-stress Accession Number(s): [id number] cc: Bruce Cervantes D.O.; Physician,Non-Staff [place] [address] Patient Name: ESTEFANIA CEDEÑO MRN: [facility]:[id number] date: 1995 Sex: F Assigned Patient Location: [facility] Current Patient Location: Accession/Order Number: [id number] Exam Date: 12/30/2023 10:17 Report Date: 12/30/2023 [...] M.D. Signed By:12/30/23 1222 DD/ 1219 TD/TT: Sprinkler Helper: us Bruce Cervantes DO [facility] Final Result documented in this encounter Visit Diagnoses Not on filedocumented in this encounter
--- OUTSIDE RECORDS SUMMARY | 2024-12-12 11:14 | XMS_ITS | Encounter Summary ---
Author Organization [facility] Address [address] [address] Care Team Providers Care Pump House Engineer Name Role Phone Unavailable Primary Care Provider Unavailabl e Encounter Details Date Type Department Care Team (Late st Contact Info) Description 12/15/2023 Abstract [facility] OB [address] [place] [address] Trini Aquino LPN [address] [facility] Merissa VENTURA [facility]11 Social History Tobacco Use Types [...] [facility] OB [address] [place] [address] Aditya Cervantes DO 102 [facility] Merissa [place], [facility]11 documented as of this encounter Visit Diagnoses Not on filedocumented in this encounter
--- OUTSIDE RECORDS SUMMARY | 2024-12-12 11:14 | XMS_ITS | Encounter Summary ---
Author Organization [facility] Address [address] [place] [address] Care Team Providers Care Environmental Epidemiologist Name Role Phone Unavailable Primary Care Provider Unavailabl e Encounter Details Date Type Department Care Team (Late st Contact Info) Description 12/23/2023 Clinisync Result Encounter [facility] External Department Unsolicited Bruce Cervantes, DO [facility] [place] [address] Social History Tobacco Use Types Packs/Day Years [...] PM EDT Routine [facility] [address] [facility] [place] [place] [address] Bruce Cervantes [facility] [address] documented as of this encounter Procedures Procedure Name Priority Date/Time Associated Diagnosis Comments US OB BPP W NON-STRESS 12/23/2023 10:41 AM EDT documented in this encounter Results * US OB BPP W NON-STRESS (12/23/2023 10:41 AM EDT) Anatomical Region Laterality Modality Other 12/23/2023 10:4 1 AM EDT Narrative 12/23/2023 10:43 AM EDT The [address] [address] Ultrasound Report Signed Patient: ESTEFANIA CEDEÑO MR#: [id number] : 1995 Acct:[id number] Age/Sex: 28 / F ADM Date: 12/23/23 Loc: [facility] 254-[address]: Bruce Cervantes D.O. Ordering Physician: Bruce Cervantes D.O. Date of Service: 12/23/23 Procedure(s): US OB BPP w non-stress Accession Number(s): [id number] cc: Bruce Cervantes D.O.; Physician,Non-Staff Roberto The [place] [id number] Patient Name: ESTEFANIA CEDEÑO MRN: [id number] date: 1995 Sex: F Assigned Patient Location: [facility] Current Patient Location: [facility] Accession/Order Number: [id number] Exam Date: 12/23/2023 10:00 Report Date: 12/23/2023 [...] Signed By: 12/23/23 1043 DD/ 1041 TD/TT: Cigarette Roller: Procedure Note Radiology, Radiologist, - 12/23/[address] [address] Ultrasound Report Signed Patient: BETTY CEDEÑOR#: [id number] : 1995Acct:[id number] Age/Sex: 28 / FADM Date: 12/23/23 Loc: [facility] 254-[address]: Bruce Cervantes D.O. Ordering Physician: Bruce Cervantes D.O. Date of Service: 12/23/23 Procedure(s): US OB BPP w non-stress Accession Number(s): [id number] cc: Bruce Cervantes D.O.; Physician,Non-Staff Roberto The [place] [id number] Patient Name: ESTEFANIA CEDEÑO MRN: [id number] date: 1995 Sex: F Assigned Patient Location: [facility] Current Patient Location: [facility] Accession/Order Number: [id number] Exam Date: 12/23/2023 10:00 Report Date: 12/23/2023 [...] M.D. Signed By:12/23/23 1043 DD/ 1041 TD/TT: Cigarette Roller: us Bruce Cervantes DO [facility] Final Result documented in this encounter Visit Diagnoses Not on filedocumented in this encounter
--- OUTSIDE RECORDS SUMMARY | 2024-12-12 11:14 | XMS_ITS | Encounter Summary ---
Author Organization [facility] Address [address] [place] [address] Care Team Providers Care Supply Chain Analyst Name Role Phone Unavailable Primary Care Provider Unavailabl e Encounter Details Date Type Department Care Team (Late st Contact Info) Description 12/15/2023 Clinisync Result Encounter [facility] External Department Unsolicited Bruce Cervantes, DO [address] [place] [address] Social History Tobacco Use Types Packs/Day Years [...] Routine [facility] OB [address] [facility] [place] [phone] Bruce Cervantes [facility] [address] documented as of this encounter Procedures Procedure Name Priority Date/Time Associated Diagnosis Comments US OB GROWTH 12/15/2023 12:01 PM EDT [facility] BOX TEST SENT OUT Routine 12/15/2023 11:10 AM EDT documented in this encounter Results * US OB GROWTH (12/15/2023 12:01 PM EDT) Anatomical Region Laterality Modality Other 12/15/2023 12:0 1 PM EDT Narrative 12/15/2023 12:04 [place] [address] Ultrasound Report Signed Patient: ESTEFANIA CEDEÑO MR#: [id number] : 1995 Acct:[id number] Age/Sex: 28 / F ADM Date: 12/15/23 Loc: [facility] Attending Dr: Bruce Cervantes D.O. Ordering Physician: Bruce Cervantes D.O. Date of Service: 12/15/23 Procedure(s): US OB growth Accession Number(s): [id number] cc: Bruce Cervantes D.O.; Physician,Non-Staff [place]rena [place] [address] Patient Name: ESTEFANIA CEDEÑO MRN: [id number] date: 1995 Sex: F Assigned Patient [facility]: [facility] Current Patient Location: [facility] Accession/Order Number: [id number] Exam Date: 12/15/2023 10:33 Report Date: 12/15/2023 [...] Dr. Cervantes was notified of findings by vortex operator at time of imaging. Electronically authenticated by: ED KRUEGER Date: 12/15/2023 12:01 Dictated By: Ed Krueger M.D. Signed By: 12/15/23 1204 DD/ 1201 TD/TT: Bilingual Kindergarten Teacher: Procedure Note Radiology, Radiologist, MD - 12/15/2023 [place] [address] Ultrasound Report Signed Patient: TRINITY CEDEÑO#: [id number] : 1995Acct:[id number] Age/Sex: Date: 12/15/23 Loc: [facility] Attending Dr: Bruce Cervantes D.O. Ordering Physician: Bruce Cervantes D.O. Date of Service: 12/15/23 Procedure(s): US OB growth Accession Number(s): [id number] cc: Bruce Cervantes D.O.; Physician,Non-Staff Roberto The [place] [address] Patient Name: ESTEFANIA CEDEÑO MRN: [facility]:[id number] date: 1995 Sex: F Assigned Patient Location: [facility] Current Patient Location: [facility] Accession/Order Number: [id number] Exam Date: 12/15/2023 10:33 Report Date: 12/15/2023 [...] Dr. Cervantes was notified of findings by vortex operator at time of imaging. Electronically authenticated by: ED KRUEGER Date: 12/15/2023 12:01 Dictated By: Ed Krueger M.D. Signed By:12/15/23 1204 DD/ 1201 TD/TT: Bilingual Kindergarten Teacher: us Bruce Billy DO [facility] Final [...]
--- OUTSIDE RECORDS SUMMARY | 2024-12-12 11:14 | XMS_ITS | Clinical Summary ---
Author Organization [facility] Address [address] [place] [address] Care Team Providers Care Petroleum Terminal Plant Operator Name Role Phone Unavailable Primary Care Provider Unavailabl e Allergies Active Allergy Reactions Criticality Noted Date Comments Other 04/18/2024 NUTS Triamcinolone Other,Hives High 10/13/2013 Had to have reconstructive surgery. Dimpling of the skin Medications Vit-Fe Fumarate-FA (PNV Plus Multivitamin) 27-1 MG tabletIndications:En counter for supervision of normal first in first trimester ([facility]) Take 1 tablet by mouth Daily 30 tablet 11 Active aspirin 81 MG EC tablet Take 81 mg by mouth Daily Active iron polysaccharides (ProFe) 391.3 (180 Fe) MG capsuleIndications:D izziness Take 1 capsule (391.3 mg) by mouth Daily 30 capsule 6 5 12/23/19 25 Active Resolved Problems Problem Noted Date Diagnosed Date Resolved Date Excessive growth affec ting management of mother, antepartum ([facility]) 12/06/2023 01/03/20 24 Third trimester ([facility]) 12/06/2023 01/03/2024 Encounters Date Type Department Care Team Description 12/05/2024 Clinisync Result Encounter [facility] External Department Unsolicited Latasha Padgett PA 12/05/2024 Clinisync Result Encounter [facility] External Department Unsolicited Bruce Cervantes DO 11/28/2024 Abstract [facility] OB [address] [place] [address] Bruce Cervantes DO 11/22/2024 1:50 PM EDT Routine [facility] OB [address] [place] [address] Bruce Cervantes DO Dizziness (Primary Dx); 25 weeks gestation of ([facility]); Second trimester ([facility]); History of gestational diabetes; Diabetes mellitus screening 11/22/2024 Bamboo flowsheet [facility] [address] [place] [address] Bruce Cervantes, 10/31/2024 Abstract [facility] [address] [place] [address] Bruce Cervantes, 10/25/2024 9:30 AM EDT Routine [facility]OM[facility] [address] [place] [address] Latasha Padgett PA Second trimester ([facility]); 21 weeks gestation of ([facility]) 10/25/2024 8:00 AM EDT Ancillary Procedure [facility] [address] [place] [address] 10/17/2024 Clinisync Result Encounter [facility] External Department Unsolicited Bruce Cervantes DO 10/17/20[address] [facility] [address] [place] [address] Bruce Cervantes, 10/06/2024 Orders Only [facility] [address] [place] [address] Maria Elena Dolan MA 09/27/[address] [facility] [address] [place] [address] Cammie Polo MA 09/26/2024 9:50 AM EDT Routine [facility] [address] [place] [address] Bruce Cervantes DO Screening, , for anatomic survey ([facility]); Well woman exam with routine gynecological exam; STD exposure; Vaginal discharge; Second trimester ([facility]); 17 weeks gestation of ([facility] 09/26/2024 Clinisync Result Encounter [facility] External Department Unsolicited Bruce Cervantes DO 09/26/2024 Bamboo flowsheet [facility] [address] [place] [address] Bruce Cervantes DO 09/25/2024 Telephone [facility] [address] [place] [address] Cammie Polo MA 09/19/2024 Abstract [facility] [address] [place] [address] Bruce Cervantes DO from Last 3 [...] Description 12/13/2024 1:40 PM EDT Routine [facility] [address] [place] [address] Bruce Cervantes, [address] [place] [address] Dr [place], [place] [id number] Procedures Procedure Name Priority Date/Time Associated Diagnosis Comments GLUCOSE 1 HOUR Routine 12/05/2024 10:53 AM EDT ALL CBC WITH AUTO DIFF Routine 12/05/2024 10:53 AM EDT ECG 12-LEAD 12/05/2024 9:07 AM EDT POCT URINALYSIS DIPSTICK Routine 11/22/2024 2:36 PM EDT 25 weeks gestation of ([facility]) Second trimester ([facility]) History of gestational diabetes POCT URINALYSIS DIPSTICK Routine 10/25/2024 9:11 AM EDT Second trimester ([facility]) US OB 14+ WEEKS ANATOMY SCAN Routine 10/25/2024 8:59 AM EDT Screening, , for anatomic survey ([facility]) MHPT AFP, MATERNAL Routine 10/17/2024 10 :23 AM EDT RECURRENT VAGINITIS (HTRX) Routine 09/26/2024 11:07 AM EDT POCT URINALYSIS DIPSTICK Routine 09/26/2024 11:03 AM EDT 17 weeks gestation of ([facility]) IGP,APTIMA HPV,AGE GDLN Routine 09/26/2024 10:05 AM EDT PAP SMEAR Routine 09/26/2024 12:00 AM EDT from Last 3 Months Results * (ABNORMAL) GLUCOSE 1 HOUR (12/05/2024 10:53 AM EDT) GLUCOSE 1 HOUR 176(H) <130 mg/dL TBH 12/05/2024 10:5 3 AM EDT 12/05/2024 10:54 AM EDT Narrative [facility] - 12/05/2024 11:23 AM EDT Bruce Cervantes DO LAB BLOOD ORDERABLES Final Resul t [facility] TB * (ABNORMAL) ALL CBC WITH AUTO DIFF (12/05/2024 10:53 AM EDT) TBH WBC 11.3(H) 4.0 - 11.0 10 3/uL TBH TBH RBC 4.14(L) 4.20 - 5.40 10 6/uL TBH TBH HGB 11.5(L) 12.0 - 16.0 g/dL TBH TBH HCT 34.3(L) 36.0 - 48.0 % TBH TBH MCV 82.9 81.0 - 99.0 fL TBH TBH MCH 27.8 26.7 - 34.0 pg TBH TBH MCHC 33.5 29.9 - 35.2 g/dL TBH TBH RDW 13.7 11.0 - 15.0 % TBH TBH PLT 140(L) 150 - 450 10 3/uL TBH TBH MPV 11.1 9.5 - 13.5 fL TBH NEUTROPHILS PERCENT AUTO 75.6(H) 43.0 - 75.0 % TBH LYMPHOCYTES PERCENT AUTO 18.9(L) 20.5 - 60.0 % TBH MONOCYTES PERCENT AUTO 4.0 1.7 - 12.0 % TBH TBH EO % 0.6(L) 0.9 - 7.0 % TBH BASOPHILS PERCENT AUTO 0.2 0.2 - 2.0 % TBH IMMATURE GRANULOCYTES PCT AUTO 0.7(H) 0.0 - 0.5 % TBH NEUTROPHILS ABSOLUTE AUTO 8.6(H) 1.4 - 6.5 10 3/uL TBH LYMPHOCYTES ABSOLUTE AUTO 2.1 1.2 - 3.8 10 3/uL TBH MONOCYTES ABSOLUTE AUTO 0.5 0.3 - 0.8 10 3/uL TBH TBH EO # 0.1 0.0 - 0.7 10 3/uL TBH BASOPHILS ABSOLUTE AUTO 0.0 0.0 - 0.1 10 3/uL TBH IMMATURE GRANULOCYTES ABS AUTO 0.08(H) 0.00 - 0.03 10 3/uL [facility] 12/05/2024 10:5 3 AM EDT 12/05/2024 10:54 AM EDT Narrative [facility] - 12/05/2024 11:14 AM EDT Bruce Buenrostroo DO [facility] Final Result [facility] * ECG 12-LEAD (12/05/2024 9:07 AM EDT) Anatomical Region Laterality Modality Other 12/05/2024 9:07 AM EDT Narrative 12/07/2024 9:00 [place] [address] Electrocardiograph Report Signed Patient: ESTEFANIA FLOREZ MR#: [id number] : 1995 Acct:[id number] Age/Sex: 29 / F ADM Date: 12/05/24 Loc: CR Attending Dr: Latasha Padgett Ordering Physician: Latasha Padgett Date of Service: 12/05/24 Procedure(s): ECG 12 lead Accession Number(s): [id number] cc: [facility] Test Date: 2024-12-05 Pat Name: ESTEFANIA FLOREZ Department: Room: - Gender: Female Pound Attendant: : 1995 Requested By: 0923 Order Number: [id number] Reading MD: ANTON THORPE Measurements Intervals Muse Rate: 68 P: 55 DE: 116 QRS: 72 QRSD: 94 T: 14 QT: 411 QTc: 439 Interpretive Statements SINUS RHYTHM WITH SHORT DE INTERVAL NONSPECIFIC T-WAVE ABNORMALITY No previous ECG available for comparison Electronically Signed On 12-07-2024 9:00:49 EDT by ANTON THORPE Dictated By: Anton Thorpe M.D. Signed By: 12/07/2489912/07/24899 DD/ 6 TD/TT: Piece Work Checker: Procedure Note Radiology, Radiologist, - 12/07/2024 [place] [address] Electrocardiograph Report Signed Patient: ESTEFANIA FLOREZ JMR#: [id number] : 1995Acct:[id number] Age/Sex: 29 / FADM Date: 12/05/24 Loc: CR Attending Dr: Latasha Padgett Ordering Physician: aLtasha Padgett Date of Service: 12/05/24 Procedure(s): ECG 12 lead Accession Number(s): [id number] cc: [facility] Test Date: 2024-12-05 Pat Name: ESTEFANIA FLOREZ Department: Room: - Gender: Female Pound Attendant: : 1995 Requested By: 0923 Order Number: [id number] Reading MD: ANTON THORPE Measurements Intervals Muse Rate: 68 P: 55 DE: 116 QRS: 72 QRSD: 94 T: 14 QT: 411 QTc: 439 Interpretive Statements SINUS RHYTHM WITH SHORT DE INTERVAL NONSPECIFIC T-WAVE ABNORMALITY No previous ECG available for comparison Electronically Signed On 12-07-2024 9:00:49 EDT by ANTON THORPE Dictated By: Anton Thorpe M.D. Signed By:12/07/2489912/07/24899 DD/ 09 TD/TT: Piece Work Checker: us Latasha KULKARNI [facility] Final Result * (ABNORMAL) POCT urinalysis dipstick manually resulted (11/22/2024 2:36 PM EDT) Only the most recent of3 resultswithin the time period is included. Color, UA Yellow Clarity, UA Clear Glucose, UA Negative Negative - 1999(110) ++++ mg/dL Bilirubin, UA Negative Negative - [...] - Positive Urine 11/22/2024 2:36 PM EDT us Bruce Billycheryle NAYAK POINT OF CARE TEST ENTER/EDIT OR DERABLES [...] II, MD, PHD at 25-Oct-2024 11:18:35 PM [facility] Procedure Note Peng Cornell MD - [...] PENG CORNELL II, MD, PHD 11:18:35 PM [facility] us Bruce Cervantes DO IMG OB [...] Cutoff Neural Tube Defects Risks 1:1030 < 1:71322 1:250 Comments: The risk of an open neural tube defect is less than the screening cut-off. This test was developed and its performance characteristics determined by [employer]. It has not been cleared or approved [...] MHPT Comment: (NOTE) Initial sample Performed By: [facility] [facility] [address] [place] [address] Mini Lab Operator: Pranay Rousseau MD, PhD CLIA Number: [id number] 10/17/2024 10:2 3 AM EDT 10/17/2024 10:24 AM EDT Narrative [facility] - 10/30/2024 8:41 AM EDT Original Ordering Provider: BRUCE CRAVEN us Bruce Cervantes DO [facility] Final Result [facility] MHPT * (ABNORMAL) RECURRENT VAGINITIS (HTRX) (09/26/2024 11:07 AM EDT) [facility] ATOPOBIUM VAGINAE 0.000 19.961 - 24.689 ppm 09/27/2024 6:09 AM EDT [facility] ATOPOBIUM VAGINAE Not Detected 19.961 - 24.689 ppm 09/27/2024 6:09 AM EDT [facility] BVAB 2,3 (BACTERIAL VAGINOSIS ASSOCIATED BACTERIA 2, 3); MOBILUNCUS SPP 0.000 19.961 - 24.689 ppm 09/27/2024 6:09 AM EDT [facility] BVAB 2,3 (BACTERIAL VAGINOSIS ASSOCIATED BACTERIA 2, 3); MOBILUNCUS SPP Not Detected 19.961 - 24.689 ppm 09/27/2024 6:09 AM EDT [facility] MARTHA ALBICANS, PARAPSILOSIS, TROPICALIS 25.317(A) 19.961 - 30.770 ppm 09/27/2024 6:09 AM EDT [facility] MARTHA ALBICANS, PARAPSILOSIS, TROPICALIS Detected(A) 19.961 - 30.770 ppm 09/27/2024 6:09 AM EDT [facility] MARTHA GLABRATA 0.000 23.000 - 32.138 ppm 09/27/2024 6:09 AM EDT [facility] MARTHA GLABRATA Not Detected 23.000 - 32.138 ppm 09/27/2024 6:09 AM EDT [facility] MARTHA KRUSEI 0.000 23.000 - 32.271 ppm 09/27/2024 6:09 AM EDT [facility] MARTHA KRUSEI Not Detected 23.000 - 32.271 ppm 09/27/2024 6:09 AM EDT [facility] CHLAMYDIA TRACHOMATIS 0.000 23.000 - 31.467 ppm 09/27/2024 6:09 AM EDT [facility] CHLAMYDIA TRACHOMATIS Not Detected 23.000 - 31.467 ppm 09/27/2024 6:09 AM EDT [facility] GARDNERELLA VAGINALIS 17.782(A) 19.961 - 24.689 ppm 09/27/2024 6:09 AM EDT [facility] [place] GARDNERELLA VAGINALIS Detected(A) 19.961 - 24.689 ppm 09/27/2024 6:09 AM EDT [facility] [place] MEGASPHAERA (TYPES 1, 2) 0.000 19.961 - 24.689 ppm 09/27/2024 6:09 AM EDT [facility] [place] MEGASPHAERA (TYPES 1, 2) Not Detected 19.961 - 24.689 ppm 09/27/2024 6:09 AM EDT [facility] NEISSERIA GONORRHOEAE 0.000 23.000 - 32.117 ppm 09/27/2024 6:09 AM EDT [facility] NEISSERIA GONORRHOEAE Not Detected 23.000 - 32.117 ppm 09/27/2024 6:09 AM EDT [facility] TRICHOMONAS VAGINALIS 0.000 23.000 - 32.119 ppm 09/27/2024 6:09 AM EDT [facility] TRICHOMONAS VAGINALIS Not Detected 23.000 - 32.119 ppm 09/27/2024 6:09 AM EDT [facility] MYCOPLASMA GENITALIUM 0.000 19.961 - 24.689 ppm 09/27/2024 6:09 AM EDT [facility] MYCOPLASMA GENITALIUM Not Detected 19.961 - 24.689 ppm 09/27/2024 6:09 AM EDT [facility] ERMB, C; MEFA 16.822(A) 23.000 - 27.611 ppm 09/27/2024 6:09 AM EDT [facility] ERMB, C; MEFA Detected(A) 23.000 - 27.611 ppm 09/27/2024 6:09 AM EDT [facility] TET B, TET M 22.584(A) 23.000 - 27.778 ppm 09/27/2024 6:09 AM EDT [facility] TET B, TET M Detected(A) 23.000 - 27.778 ppm 09/27/2024 6:09 AM EDT [facility] Tissue 09/26/2024 11:0 7 AM EDT 09/27/2024 2:08 AM EDT us Bruce Cervantes DO LAB BLOOD ORDERABLES Final Resul t [facility] [address] [place] [address] * IGP,APTIMA HPV,AGE GDLN (09/26/2024 10:05 AM EDT) AGE GDLN ACOG TESTING Note . [facility] Comment: TESTS RESULT FLAG UNITS REF RANGE LAB Clinician Provided Cytology Information Other.............. No. of containers..01 ThinPrep Vial Age Algo ACOG Geetha... FLAG LEGEND: L-Low Normal,H-High Normal,LL-Alert Low,HH-Alert High <-Panic Low,>-Panic High,A-Abnormal,AA-Critical Abnormal Performed at: 01 =[facility] [address] Lynda Almaguer MD, IGP, RFX APTIMA HPV ASCU Note . [facility] Comment: TESTS RESULT FLAG UNITS REF RANGE LAB DIAGNOSIS: 02 NEGATIVE FOR INTRAEPITHELIAL LESION OR MALIGNANCY. FUNGAL ORGANISMS MORPHOLOGICALLY CONSISTENT WITH MARTHA SPECIES ARE PRESENT. CELLULAR CHANGES ASSOCIATED WITH INFLAMMATION ARE PRESENT. Specimen adequacy: 02 Satisfactory for evaluation. Endocervical and/or squamous metaplastic cells (endocervical component) are present. Performed by: 02 Argelia Correia General Machine Operator . 02 Note: Note 02 The Pap [...] <-Panic Low,>-Panic High,A-Abnormal,AA-Critical Abnormal Performed at: [address] [facility] [address] [address] Lynda Almaguer MD, Performed at: =G - [facility] [address] [id number] Teletype Installer: Lynda Almaguer MD, Phone: [phone] Performed at: [address], [place] [id number] Teletype Installer: Lynda Almaguer MD, Phone: [phone] 09/26/2024 10:0 5 AM EDT 09/26/2024 12:57 PM EDT Narrative [facility] - 09/28/2024 10:09 AM EDT BRUSH-SPATULA BRUSH-ALONE 2 us Bruce Billy DO LAB BLOOD ORDERABLES Final Resul t [facility] * Pap Smear (09/26/2024 12:00 AM EDT) Swab Cervical swab / Unknown us Bruce Billy DO LAB CYTOLOGY ORDERABLES Final Re sult EXTERNAL LAB from Last 3 Months Insurance [employer] [place]
--- OUTSIDE RECORDS SUMMARY | 2024-12-12 11:14 | XMS_ITS | Encounter Summary ---
Author Organization [facility] Address [address] [place] [address] Care Team Providers Care Direct Sales Representative Name Role Phone Unavailable Primary Care Provider Unavailabl e Encounter Details Date Type Department Care Team (Late st Contact Info) Description 10/06/2024 Orders Only [facility] OB [address] [place] [id number] Maria Elena Dolan MA Social History Tobacco [...] Description 12/13/2024 1:40 PM EDT Routine [facility] OB [facility] [place] [address] Aditya Cervantes DO [facility] [place] [address] documented as of this encounter Procedures Procedure [...]
--- OUTSIDE RECORDS SUMMARY | 2024-12-12 11:14 | XMS_ITS | Encounter Summary ---
Author Organization [facility] Address [address] [place] [address] Care Team Providers Care Tile Finisher Name Role Phone Unavailable Primary Care Provider Unavailabl e Encounter Details Date Type Department Care Team (Late st Contact Info) Description 10/31/2024 Abstract [facility] OB [address] [facility] [place] [address] Aditya Cervantes [facility] [place], [facility]11 Social History Tobacco Use Types Packs/Day Years [...] Description 12/13/2024 1:40 PM EDT Routine [facility] OB [address] [place] [address] Aditya Cervantes [facility] [place], [place] [id number] documented as of this encounter Visit Diagnoses Not on filedocumented in this encounter
--- OUTSIDE RECORDS SUMMARY | 2024-12-12 11:14 | XMS_ITS | Encounter Summary ---
Author Organization [facility] Address [address] [facility] [place] [address] Care Team Providers Care Sock Mender Name Role Phone Unavailable Primary Care Provider Unavailabl e Encounter Details Date Type Department Care Team (Late st Contact Info) Description 12/21/2023 Abstract [facility] OB [address] [facility] [place] [address] Hedy Singh LPN [address] [place] [id number] Social History Tobacco Use Types Packs/Day Years [...] Description 12/13/2024 1:40 PM EDT Routine [facility] [address] [facility] [place] [address] Aditya Cervantes DO [address] [facility] [address] [place], [facility]11 documented as of this encounter Visit Diagnoses Not on filedocumented in this encounter
--- OUTSIDE RECORDS SUMMARY | 2024-12-12 11:14 | XMS_ITS | Encounter Summary ---
Author Organization [facility] Address [address] [place] [address] Care Team Providers Care Kettle Operator Head Name Role Phone Unavailable Primary Care Provider Unavailabl e Encounter Details Date Type Department Care Team (Late st Contact Info) Description 10/28/2023 Clinisync Result Encounter [facility] External Department Unsolicited Bruce Cervantes, DO [address] [place] [address] Social History Tobacco Use Types Packs/Day Years [...] Description 12/13/2024 1:40 PM EDT Routine [facility] OB [address] [facility] [place] [address] Bruce Cervantes, [facility] [place] [place] [address] documented as of this encounter Procedures Procedure Name Priority Date/Time Associated Diagnosis Comments US OB GROWTH 10/28/2023 9:56 AM EDT documented in this encounter Results * US OB GROWTH (10/28/2023 9:56 AM EDT) Anatomical Region Laterality Modality Other 10/28/2023 9:56 AM EDT Narrative 10/28/2023 9:59 [place] [address] Ultrasound Report Signed Patient: ESTEFANIA CEDEÑO MR#: [id number] : 1995 Acct:[id number] Age/Sex: 28 / F ADM Date: 10/28/23 Loc: US Attending Dr: Bruce Cervantes D.O. Ordering Physician: Bruce Cervantes D.O. Date of Service: 10/28/23 Procedure(s): US OB growth Accession Number(s): [id number] cc: Bruce Cervantes D.O.; Physician,Non-Staff Roberto The [place] [address] Patient Name: ESTEFANIA CEDEÑO MRN: [id number] date: 1995 Sex: F Assigned Patient Location: US Current Patient Location: Accession/Order Number: [id number] Exam Date: 10/28/2023 08:55 Report Date: 10/28/2023 [...] M.D. Signed By: 10/28/23 0959 DD/ TD/TT: Baby Sitter: Procedure Note Radiology, Radiologist, - 10/28/2023 [place] [address] Ultrasound Report Signed Patient: TRINITY CEDEÑO#: [id number] : 1995Acct:[id number] Age/Sex: FADM Date: 10/28/23 Loc: US Attending Dr: Bruce Cervantes D.O. Ordering Physician: Bruce Cervantes D.O. Date of Service: 10/28/23 Procedure(s): US OB growth Accession Number(s): [id number] cc: Bruce Cervantes D.O.; Physician,Non-Staff Roberto The [place] [id number] Patient Name: ESTEFANIA CEDEÑO MRN: [id number] date: 1995 Sex: F Assigned Patient Location: US Current Patient Location: US Accession/Order Number: [id number] Exam Date: 10/28/2023 08:55 Report Date: 10/28/2023 [...] Stone M.D. Signed By:10/28/23 0959 DD/ TD/TT: Baby Sitter: us Bruce Billy DO [facility] Final Result documented in this encounter Visit Diagnoses Not on filedocumented in this encounter
--- OUTSIDE RECORDS SUMMARY | 2024-12-12 11:14 | XMS_ITS | Encounter Summary ---
Author Organization [facility] Address [address] [place] [address] Care Team Providers Care Rad Tech Name Role Phone Unavailable Primary Care Provider Unavailabl e Encounter Details Date Type Department Care Team (Late st Contact Info) Description 12/14/2023 Abstract [facility] OB [address] [facility] [place] [address] Trini Aquino LPN [address] [place] [facility]11 Social History Tobacco Use Types Packs/Day [...] Description 12/13/2024 1:40 PM EDT Routine [facility] OB [address] [facility] [place] [address] Aditya Cervantes DO 102 [facility] Merissa Ventura, [facility]11 documented as of this encounter Visit Diagnoses Not on filedocumented in this encounter
--- OUTSIDE RECORDS SUMMARY | 2024-12-12 11:14 | XMS_ITS | Encounter Summary ---
Author Organization [facility] Address [address] [place] [address] Care Team Providers Care Operating Systems Programmer Name Role Phone Unavailable Primary Care Provider Unavailabl e Encounter Details Date Type Department Care Team (Late st Contact Info) Description 11/28/2024 Abstract [facility] OB [address] [facility] [place] [address] Aditya Cervantes [facility] [place], [facility]11 Social History Tobacco Use Types Packs/Day Years [...] Description 12/13/2024 1:40 PM EDT Routine [facility] OB [address] [place] [address] Aditya Cervantes [address] [place], [place] [address] documented as of this encounter Visit Diagnoses Not on filedocumented in this encounter
--- OUTSIDE RECORDS SUMMARY | 2024-12-12 11:15 | XMS_ITS | Encounter Summary ---
Author Organization [facility] Address [address] [facility] [address] Care Team Providers Care Frozen Meat Cutter Name Role Phone Unavailable Primary Care Provider Unavailabl e Encounter Details Date Type Department Care Team (Late st Contact Info) Description 04/20/2023 Abstract [facility] OB [address] [facility] [place] [address] Trini Aquino LPN [address] [facility] [address] [place] VENTURA [facility]11 Social History Tobacco Use Types Packs/Day [...] Description 12/13/2024 1:40 PM EDT Routine [facility] OB [address] [facility] [place] [address] Aditya Cervantes DO 102 [facility] Merissa Ventura, [facility]11 documented as of this encounter Visit Diagnoses Not on filedocumented in this encounter
--- OUTSIDE RECORDS SUMMARY | 2024-12-12 11:15 | XMS_ITS | Encounter Summary ---
Author Organization [facility] Address [address] [place] [address] Care Team Providers Care Jv Baseball Coach Name Role Phone Billie Sharpe PAD EXTRACTION TENDER - OPERATING ROOM RN Primary Care Provider Reason for Referral * Other (Routine) - Closed Specialty Diagnoses / Procedures Referred By Ryder choi Referred To Contact Radiology Diagnoses Abdominal pain, unspecified abdominal location Abdominal bloating Procedures US PELVIS COMPLETE NON-OB TRANSABDOMINAL AND TRANSVAGINAL Aditya Cervantes MD [address] [address] Phone: tel: Referral ID Status Reason Start Date Expiration Date Visits Re quested Visits Authorized [id number] Closed 03/24/2023 03/23/2024 1 1 Encounter Details Date Type Department Care Team (Late st Contact Info) Description 03/24/2023 Transcribe Orders Trent Pre Access [address] [place] [address] Aditya Cervantes MD [facility] [place] [address] Abdominal pain, unspecified abdominal location [...] pain documented in this encounter Care Teams Jv Baseball Coach Relationship Specialty Start Date End Date Billie Sharpe, PAD EXTRACTION TENDER - OPERATING ROOM RN PCP - General Family Medicine 04/08/20 documented as of this encounter
--- OUTSIDE RECORDS SUMMARY | 2024-12-12 11:15 | XMS_ITS | Encounter Summary ---
Author Organization [facility] Address [address] [place] [address] Care Team Providers Care Management Professor Name Role Phone Unavailable Primary Care Provider Unavailabl e Encounter Details Date Type Department Care Team (Late st Contact Info) Description 08/19/2023 Clinisync Result Encounter [facility] External Department Unsolicited Bruce Cervantes, DO [address] [place] [address] Social History Tobacco Use Types Packs/Day Years [...] [facility] OB [address] [place] [address] Bruce Cervantes [place] [address] documented as of this encounter Procedures Procedure Name Priority Date/Time Associated Diagnosis Comments US OB CERVICAL LENGTH 08/19/2023 11:33 AM EDT documented in this encounter Results * US OB CERVICAL LENGTH (08/19/2023 11:33 AM EDT) Anatomical Region Laterality Modality Other 08/19/2023 11:3 3 AM EDT Narrative 08/19/2023 11:35 AM EDT [address] [address] Ultrasound Report Signed Patient: ESTEFANIA CEDEÑO MR#: [id number] : 1995 Acct:[id number] Age/Sex: 28 / F ADM Date: 08/19/23 Loc: NOMS Attending Dr: Bruce Cervantes D.O. Ordering Physician: Bruce Cervantes D.O. Date of Service: 08/19/23 Procedure(s): US OB cervical length Accession Number(s): [id number] cc: Bruce Cervantes D.O.; Physician,Non-Staff Roberto The [address] [address] Patient Name: ESTEFANIA CEDEÑO MRN: [id number] date: 1995 Sex: F Assigned Patient Location: [facility] Current Patient Location: [facility] Accession/Order Number: [id number] Exam Date: 08/19/2023 10:08 Report Date: 08/19/2023 [...] Signed By: 08/19/23 1135 DD/ 1133 TD/TT: Dado Operator: Procedure Note Radiology, Radiologist, MD - 08/19/2023 [place] [address] Ultrasound Report Signed Patient: TRINITY CEDEÑO#: [id number] : 1995Acct:[id number] Age/Sex: M Date: 08/19/23 Loc: [facility] Attending Dr: Bruce Cervantes D.O. Ordering Physician: Bruce Cervantes D.O. Date of Service: 08/19/23 Procedure(s): US OB cervical length Accession Number(s): [id number] cc: Bruce Cervantes D.O.; Physician,Non-Staff M.Aminata The [place] [id number] Patient Name: ESTEFANIA CEDEÑO MRN: [id number] date: 1995 Sex: F Assigned Patient Location: [facility] Current Patient Location: [facility] Accession/Order Number: [id number] Exam Date: 08/19/2023 10:08 Report Date: 08/19/2023 [...] M.D. Signed By:08/19/23 1135 DD/ 1133 TD/TT: Dado Operator: us Bruce Billy DO [facility] Final Result documented in this encounter Visit Diagnoses Not on filedocumented in this encounter
--- OUTSIDE RECORDS SUMMARY | 2024-12-12 11:15 | XMS_ITS | Encounter Summary ---
Author Organization [facility] Address [address] [place] [address] Care Team Providers Care Pest Control Service Representative Name Role Phone Unavailable Primary Care Provider Unavailabl e Encounter Details Date Type Department Care Team (Late st Contact Info) Description 09/19/2024 Abstract [facility] OB [address] [facility] [place] [address] Aditya Cervantes [facility] [place], [facility]11 Social History Tobacco Use Types Packs/Day Years [...] Description 12/13/2024 1:40 PM EDT Routine [facility] OB [address] [place] [address] Aditya Cervantes [facility] [place], [place] [address] documented as of this encounter Visit Diagnoses Not on filedocumented in this encounter
--- OUTSIDE RECORDS SUMMARY | 2024-12-12 11:15 | XMS_ITS | Encounter Summary ---
Author Organization [facility] Address [address] [place] [address] Care Team Providers Care Slope Hoist Operator Name Role Phone Unavailable Primary Care Provider Unavailabl e Encounter Details Date Type Department Care Team (Late st Contact Info) Description 01/11/2024 Abstract [facility] OB [address] [place] [address] Aditya Cervantes [facility] [place], [facility]11 Social History Tobacco Use Types Packs/Day [...] Description 12/13/2024 1:40 PM EDT Routine [facility] OB [address] [place] [address] Aditya Cervantes [facility] [place], [facility]11 documented as of this encounter Visit Diagnoses Not on filedocumented in this encounter
--- OUTSIDE RECORDS SUMMARY | 2024-12-12 11:15 | XMS_ITS | Encounter Summary ---
Author Organization [facility] Address [address] [place] [address] Care Team Providers Care Dry Can Tender Name Role Phone Unavailable Primary Care Provider Unavailabl e Encounter Details Date Type Department Care Team (Late st Contact Info) Description 10/05/2023 Clinisync Result Encounter [facility] External Department Unsolicited Bruce Cervantes, [address] [place] [address] Social History Tobacco Use Types Packs/Day Years [...] Description 12/13/2024 1:40 PM EDT Routine [facility] OB [address] [place] [address] Bruce Cervantes [place] [address] documented as of this encounter Procedures Procedure Name Priority Date/Time Associated Diagnosis Comments CT ABDOMEN/PELVIS WO CONT 10/05/2023 8:17 AM EDT documented in this encounter Results * CT ABDOMEN/PELVIS WO CONT (10/05/2023 8:17 AM EDT) Anatomical Region Laterality Modality Radiographic Mari ging 10/05/2023 8:17 AM EDT Narrative 10/05/2023 8:20 [place] [address] CT Scan Report Signed Patient: ESTEFANIA CEDEÑO MR#: [id number] : 1995 Acct:[id number] Age/Sex: 28 / F ADM Date: Loc: [facility] 257-[address]: Bruce Cervantes D.O. Ordering Physician: Bruce Cervantes D.O. Date of Service: 10/05/23 Procedure(s): CT abdomen pelvis wo con Accession Number(s): [id number] cc: Physician,Non-Staff M.DAsiya [place] [address] Patient Name: ESTEFANIA CEDEÑO MRN: [id number] date: 1995 Sex: F Assigned Patient Location: [facility] Current Patient Location: [facility] Accession/Order Number: [id number] Exam Date: 10/05/2023 07:38 Report Date: 10/05/2023 [...] M.D. Signed By: 10/05/23819 DD/ 6 TD/TT: Casing Sewer: Procedure Note Radiology, Radiologist, MD - 10/05/2023 [place] [address] CT Scan Report Signed Patient: TRINITY CEDEÑO#: [id number] : 1995Acct:[id number] Age/Sex: Date: Loc: [facility] 257-[address]: Bruce Cervantes D.O. Ordering Physician: Bruce Cervantes D.O. Date of Service: 10/05/23 Procedure(s): CT abdomen pelvis wo con Accession Number(s): [id number] cc: Physician,Non-Staff Roberto The [place] [address] Patient Name: ESTEFANIA CEDEÑO MRN: [id number] date: 1995 Sex: F Assigned Patient Location: [facility] Current Patient Location: [facility] Accession/Order Number: [id number] Exam Date: 10/05/2023 07:38 Report Date: 10/05/2023 [...] Krueger M.D. Signed By:10/05/23819 DD/ 6 TD/TT: Casing Sewer: Bruce Cervantes DO IMG XR PROCEDURES Final Result documented in this encounter Visit Diagnoses Not on filedocumented in this encounter
--- OUTSIDE RECORDS SUMMARY | 2024-12-12 11:15 | XMS_ITS | Encounter Summary ---
Author Organization [facility] Address [address] [place] [address] Care Team Providers Care Master Brewer Name Role Phone Unavailable Primary Care Provider Unavailabl e Encounter Details Date Type Department Care Team (Late st Contact Info) Description 09/16/2023 Clinisync Result Encounter [facility] External Department Unsolicited Bruce Cervantes, [facility] [address] Social History Tobacco Use Types Packs/Day Years [...] PM EDT Routine [facility] OB [address] [place] [address] Bruce Cervantes [facility] [address] documented as of this encounter Procedures Procedure Name Priority Date/Time Associated Diagnosis Comments US OB FOLLOW UP 09/16/2023 11:19 AM EDT documented in this encounter Results * US OB FOLLOW UP (09/16/2023 11:19 AM EDT) Anatomical Region Laterality Modality Radiographic Mari ging 09/16/2023 11:1 9 AM EDT Narrative 09/16/2023 11:22 AM EDT The [place] [address] Ultrasound Report Signed Patient: ESTEFANIA CEDEÑO MR#: [id number] : 1995 Acct:[id number] Age/Sex: 28 / F ADM Date: 09/16/23 Loc: NOMS Attending Dr: Bruce Cervantes D.O. Ordering Physician: Bruce Cervantes D.O. Date of Service: 09/16/23 Procedure(s): US OB follow up Accession Number(s): [id number] cc: Bruce Cervantes D.O.; Physician,Non-Staff Roberto The [place] [id number] Patient Name: ESTEFANIA CEDEÑO MRN: [id number] date: 1995 Sex: F Assigned Patient Location: [facility] Current Patient Location: [facility] Accession/Order Number: [id number] Exam Date: 09/16/2023 09:58 Report Date: 09/16/2023 [...] no longer low-lying. Electronically authenticated by: ED KUREGER Date: 09/16/2023 11:19 Dictated By: Ed Krueger M.D. Signed By: 09/16/23 1122 DD/ 1119 TD/TT: Medical Device Engineer: Procedure Note Radiology, Radiologist, MD - 09/16/2023 The [place] [address] Ultrasound Report Signed Patient: TRINITY CEDEÑO#: [id number] : 1995Acct:[id number] Age/Sex: 28 / FADM Date: 09/16/23 Loc: [facility] Attending Dr: Bruce Cervantes D.O. Ordering Physician: Bruce Cervantes D.O. Date of Service: 09/16/23 Procedure(s): US OB follow up Accession Number(s): [id number] cc: Bruce Cervantes D.O.; Physician,Non-Staff Roberto [place] [address] Patient Name: ESTEFANIA CEDEÑO MRN: [id number] date: 1995 Sex: F Assigned Patient Location: [facility] Current Patient Location: [facility] Accession/Order Number: [id number] Exam Date: 09/16/2023 09:58 Report Date: 09/16/2023 [...] M.D. Signed By:09/16/23 1122 DD/ 1119 TD/TT: Medical Device Engineer: us Bruce Cervantes DO IMG XR PROCEDURES Final Result documented in this encounter Visit Diagnoses Not on filedocumented in this encounter
--- OUTSIDE RECORDS SUMMARY | 2024-12-12 11:15 | XMS_ITS | Encounter Summary ---
Author Organization [facility] Address [address] [place] [address] Care Team Providers Care Teacher Name Role Phone Unavailable Primary Care Provider Unavailabl e Encounter Details Date Type Department Care Team (Late st Contact Info) Description 06/23/2023 Clinisync Result Encounter [facility] External Department Unsolicited Bruce Cervantes, DO [facility] [address] Social History Tobacco Use Types Packs/Day Years [...] 12/13/2024 1:40 PM EDT Routine [facility] OB [address] [facility] [place] [address] Bruce Cervantes [facility] [address] documented as of this encounter Procedures Procedure Name Priority Date/Time Associated Diagnosis Comments US OB TRANSVAGINAL 06/23/2023 10 :07 AM EST documented in this encounter Results * US OB TRANSVAGINAL (06/23/2023 10:07 AM EST) Anatomical Region Laterality Modality Other 06/23/2023 10:0 7 AM EST Narrative 06/23/2023 10:09 AM EST The [address] [address] Ultrasound Report Signed Patient: ESTEFANIA CEDEÑO MR#: [id number] : 1995 Acct:[id number] Age/Sex: 28 / F ADM Date: 06/23/23 Loc: NOMS Attending Dr: Bruce Cervantes D.O. Ordering Physician: Bruce Cervantes D.O. Date of Service: 06/23/23 Procedure(s): US OB transvaginal Accession Number(s): [id number] cc: Bruce Cervantes D.O.; Physician,Non-Staff Roberto The [address] [address] Patient Name: ESTEFANIA CEDEÑO MRN: [id number] date: 1995 Sex: F Assigned Patient Location: [facility] Current Patient Location: [facility] Accession/Order Number: [id number] Exam Date: 06/23/2023 09:30 Report Date: 06/23/2023 [...] Signed By: 06/23/23 1009 DD/ 1007 TD/TT: Bakery Team Member: Procedure Note Radiology, Radiologist, - 08/04/2023 The [place] [id number] Ultrasound Report Signed Patient: TRINITY CEDEÑO#: [id number] : 1995Acct:[id number] Age/Sex: 28 / FADM Date: 06/23/23 Loc: [facility]OMS Attending Dr: Bruce Cervantes D.O. Ordering Physician: Bruce Cervantes D.O. Date of Service: 06/23/23 Procedure(s): US OB transvaginal Accession Number(s): [id number] cc: Bruce Cervantes D.O.; Physician,Non-Staff Roberto [place] [id number] Patient Name: ESTEFANIA CEDEÑO MRN: [id number] date: 1995 Sex: F Assigned Patient Location: [facility] Current Patient Location: [facility] Accession/Order Number: [id number] Exam Date: 06/23/2023 09:30 Report Date: 06/23/2023 [...] M.D. Signed By:06/23/23 1009 DD/ 1007 TD/TT: Bakery Team Member: us Bruce Cervantes DO [facility] Final Result documented in this encounter Visit Diagnoses Not on filedocumented in this encounter
--- OUTSIDE RECORDS SUMMARY | 2024-12-12 11:15 | XMS_ITS | Encounter Summary ---
Author Organization [facility] Address [address] [place] [address] Care Team Providers Care Art Dealer Name Role Phone Unavailable Primary Care Provider Unavailabl e Encounter Details Date Type Department Care Team (Late st Contact Info) Description 12/05/2024 Clinisync Result Encounter [facility] External Department Unsolicited Latasha Padgett PA [address] [facility] [address] [place], [facility] Social History Tobacco Use Types Packs/Day [...] Routine [facility] B[facility] OB [address] [facility] [place] [address] Aditya Cervantes, DO [address] [facility] [address] [place], [place] [address] documented as of this encounter Procedures Procedure Name Priority Date/Time Associated Diagnosis Comments ECG 12-LEAD 12/05/2024 9:07 AM EDT documented in this encounter Results * ECG 12-LEAD (12/05/2024 9:07 AM EDT) Anatomical Region Laterality Modality Other 12/05/2024 9:07 AM EDT Narrative 12/07/2024 9:00 [place] [address] Electrocardiograph Report Signed Patient: ESTEFANIA CEDEÑO MR#: [id number] : 1995 Acct:[id number] Age/Sex: 29 / F ADM Date: 12/05/24 Loc: CR Attending Dr: Latasha Padgett Ordering Physician: Latasha Padgett Date of Service: 12/05/24 Procedure(s): ECG 12 lead Accession Number(s): [id number] cc: The [facility] Test Date: 2024-12-05 Pat Name: ESTEFANIA CEDEÑO Department: Room: - Gender: Female Vocational Guidance Counselor: : 1995 Requested By: 0923 Order Number: [id number] Reading MD: CHANDRIKA THORPE Measurements Intervals [place] Rate: 68 P: 55 OK: 116 QRS: 72 QRSD: 94 T: 14 QT: 411 QTc: 439 Interpretive Statements SINUS RHYTHM WITH SHORT OK INTERVAL NONSPECIFIC T-WAVE ABNORMALITY No previous ECG available for comparison Electronically Signed On 12-07-2024 9:00:49 EDT by CHANDRIKA THORPE Dictated By: Chandrika Thorpe M.D. Signed By: 12/07/2489912/07/24899 DD/ 09 TD/TT: Warehouse Analyst: Procedure Note Radiology, Radiologist, MD - 12/07/2024 The [place] [id number] Electrocardiograph Report Signed Patient: ESTEFANIA CEDEÑO R#: [id number] : 1995Acct:[id number] Age/Sex: 29 / FADM Date: 12/05/24 Loc: CR Attending Dr: Latasha Padgett Ordering Physician: Latasha Padgett Date of Service: 12/05/24 Procedure(s): ECG 12 lead Accession Number(s): [id number] cc: The [facility] Test Date: 2024-12-05 Pat Name: ESTEFANIA CEDEÑO Department: Room: - Gender: Female Vocational Guidance Counselor: : 1995 Requested By: 0923 Order Number: [id number] Reading MD: CHANDRIKA THORPE Measurements Intervals [place] Rate: 68 P: 55 OK: 116 QRS: 72 QRSD: 94 T: 14 QT: 411 QTc: 439 Interpretive Statements SINUS RHYTHM WITH SHORT OK INTERVAL NONSPECIFIC T-WAVE ABNORMALITY No previous ECG available for comparison Electronically Signed On 12-07-2024 9:00:49 EDT by CHANDRIKA THORPE Dictated By: Chandrika Thorpe M.D. Signed By:12/07/2489912/07/24899 DD/ 6 TD/TT: Warehouse Analyst: Latasha KULKARNI [facility] Final Result documented in this encounter Visit Diagnoses Not on filedocumented in this encounter
--- OUTSIDE RECORDS SUMMARY | 2024-12-12 11:15 | XMS_ITS | Encounter Summary ---
Author Organization [facility] Address [address] [place] [address] Care Team Providers Care Sales Agent Trading Stamps Name Role Phone Billie Sharpe ELEVATOR REPAIR MECHANIC - POSTER Primary Care Provider Reason for Referral * Imaging (Routine) - Closed Specialty Diagnoses / Procedures Referred By Ryder choi Referred To Contact Radiology Diagnoses Abdominal pain, unspecified abdominal location Pelvic pain in female Procedures CT ABDOMEN PELVIS W WO CONTRAST Additional Contrast? None Aditya Cervantes MD [address] [place] [address] Phone: tel: Referral ID Status Reason Start Date Expiration Date Visits Re quested Visits Authorized [id number] Closed 04/23/2023 04/22/2024 1 1 Encounter Details Date Type Department Care Team (Late st Contact Info) Description 04/23/2023 Transcribe Orders Trent Pre Access [address] [place] [address] Aditya Cervantes MD [facility] [place] [address] Abdominal pain, unspecified abdominal location [...] organs documented in this encounter Care Teams Sales Agent Trading Stamps Relationship Specialty Start Date End Date Billie Sharpe APRN - POSTER PCP - General Family Medicine 04/08/20 documented as of this encounter
--- OUTSIDE RECORDS SUMMARY | 2024-12-12 11:15 | XMS_ITS | Encounter Summary ---
Author Organization [facility] Address [address] [place] [address] Care Team Providers Care Mine Development Engineer Name Role Phone Unavailable Primary Care Provider Unavailabl e Encounter Details Date Type Department Care Team (Late st Contact Info) Description 08/19/2023 Clinisync Result Encounter [facility] External Department Unsolicited Bruce Cervantes, DO [address] [place] [address] Social History Tobacco Use Types Packs/Day Years [...] Description 12/13/2024 1:40 PM EDT Routine [facility] OB [address] [place], [place] [address] [address] Bruce Cervantes [facility] [address] documented as of this encounter Procedures Procedure Name Priority Date/Time Associated Diagnosis Comments US OB ANATOMY 08/19/2023 11:33 AM EDT documented in this encounter Results * US OB ANATOMY (08/19/2023 11:33 AM EDT) Anatomical Region Laterality Modality Other 08/19/2023 11:3 3 AM EDT Narrative 08/19/2023 11:36 AM EDT The [address] [address] Ultrasound Report Signed Patient: ESTEFANIA CEDEÑO MR#: [id number] : 1995 Acct:[id number] Age/Sex: 28 / F ADM Date: 08/19/23 Loc: [facility] Attending Dr: Bruce Cervantes D.O. Ordering Physician: Bruce Cervantes D.O. Date of Service: 08/19/23 Procedure(s): US OB anatomy Accession Number(s): [id number] cc: Bruce Cervantes D.O.; Physician,Non-Staff [place] [id number] Patient Name: ESTEFANIA CEDEÑO MRN: [id number] date: 1995 Sex: F Assigned Patient Location: [facility] Current Patient Location: [facility] Accession/Order Number: [id number] Exam Date: 08/19/2023 10:08 Report Date: 08/19/2023 [...] Signed By: 08/19/23 1136 DD/ 1133 TD/TT: Associate Sales Manager: Procedure Note Radiology, Radiologist, MD - 08/19/2023 [place] [address] Ultrasound Report Signed Patient: TRINITY CEDEÑO#: [id number] : 1995Acct:[id number] Age/Sex: 28 / FADM Date: 08/19/23 Loc: [facility] Attending Dr: Bruce Cervantes D.O. Ordering Physician: Bruce Cervantes D.O. Date of Service: 08/19/23 Procedure(s): US OB anatomy Accession Number(s): [id number] cc: Bruce Cervantes D.O.; Physician,Non-Staff Roberto The [place] [address] Patient Name: ESTEFANIA CEDEÑO MRN: [id number] date: 1995 Sex: F Assigned Patient Location: [facility] Current Patient Location: [facility] Accession/Order Number: [id number] Exam Date: 08/19/2023 10:08 Report Date: 08/19/2023 [...] M.D. Signed By:08/19/23 1136 DD/ 1133 TD/TT: Associate Sales Manager: Bruce Billy DO [facility] Final Result documented in this encounter Visit Diagnoses Not on filedocumented in this encounter
--- OUTSIDE RECORDS SUMMARY | 2024-12-12 11:15 | XMS_ITS | Encounter Summary ---
Author Organization [facility] Address [address] [place] [address] Care Team Providers Care Vault Service Mechanic Name Role Phone Unavailable Primary Care Provider Unavailabl e Encounter Details Date Type Department Care Team (Late st Contact Info) Description 12/05/2024 Clinisync Result Encounter [facility] External Department Unsolicited Aditya Cervantes, DO [address] [place] [address] Social History Tobacco Use Types Packs/Day Years [...] PM EDT Routine [facility] OB [address] [facility] [address] Aditya Cervantes [place] [facility] [place] [address] documented as of this encounter Procedures Procedure Name Priority Date/Time Associated Diagnosis Comments GLUCOSE 1 HOUR Routine 12/05/2024 10:53 AM EDT ALL CBC WITH AUTO DIFF Routine 12/05/2024 10:53 AM EDT documented in this encounter Results * (ABNORMAL) GLUCOSE 1 HOUR (12/05/2024 10:53 AM EDT) GLUCOSE 1 HOUR 176(H) <130 mg/dL [facility] 12/05/2024 10:5 3 AM EDT 12/05/2024 10:54 AM EDT Narrative [facility] - 12/05/2024 11:23 AM EDT us Aditya Billy DO LAB BLOOD ORDERABLES Final Resul t [facility] * (ABNORMAL) ALL CBC WITH AUTO DIFF [...] Narrative [facility] - 12/05/2024 11:14 AM EDT us Aditya Buenrostroo DO [facility] Final Result [facility] documented in this encounter Visit Diagnoses Not on filedocumented in this encounter
--- OUTSIDE RECORDS SUMMARY | 2024-12-12 11:15 | XMS_ITS | Encounter Summary ---
Author Organization [facility] Address [address] [place] [address] Care Team Providers Care Cooky Machine Operator Name Role Phone Unavailable Primary Care Provider Unavailabl e Encounter Details Date Type Department Care Team (Late st Contact Info) Description 06/11/2023 Clinisync Result Encounter [facility] External Department Unsolicited Bruce Cervantes, DO [facility] [place] [address] Social History Tobacco Use Types Packs/Day Years [...] Description 12/13/2024 1:40 PM EDT Routine [facility] OB [address] [facility] [place] [address] Bruce Cervanets [facility] [place] [address] documented as of this encounter Procedures Procedure Name Priority Date/Time Associated Diagnosis Comments US OB TRANSVAGINAL 06/11/2023 11 :38 AM EST documented in this encounter Results * US OB TRANSVAGINAL (06/11/2023 11:38 AM EST) Anatomical Region Laterality Modality Other 06/11/2023 11:3 8 AM EST Narrative 06/11/2023 11:41 AM EST The [place] [id number] Ultrasound Report Signed Patient: ESTEFANIA CEDEÑO MR#: [id number] : 1995 Acct:[id number] Age/Sex: 28 / F ADM Date: 06/11/23 Loc: US Attending Dr: Bruce Cervantes D.O. Ordering Physician: Bruce Cervantes D.O. Date of Service: 06/11/23 Procedure(s): US OB transvaginal Accession Number(s): [id number] cc: Bruce Cervantes D.O.; Physician,Non-Staff Roberto The [place] [id number] Patient Name: ESTEFANIA CEDEÑO MRN: [id number] date: 1995 Sex: F Assigned Patient Location: US Current Patient Location: US Accession/Order Number: [id number] Exam Date: 06/11/2023 10:42 Report Date: 06/11/2023 [...] Signed By: 06/11/23 1141 DD/ 1138 TD/TT: Advanced Manager: Procedure Note Radiology, Radiologist, MD - 06/11/2023 [place] [address] Ultrasound Report Signed Patient: TRINITY CEDEÑO#: [id number] : 1995Acct:[id number] Age/Sex: 28 / FADM Date: 06/11/23 Loc: US Attending Dr: Bruce Cervantes D.O. Ordering Physician: Bruce Cervantes D.O. Date of Service: 06/11/23 Procedure(s): US OB transvaginal Accession Number(s): [id number] cc: Bruce Cervantes D.O.; Physician,Non-Staff Roberto The [place] [id number] Patient Name: ESTEFANIA CEDEÑO MRN: [id number] date: 1995 Sex: F Assigned Patient Location: US Current Patient Location: US Accession/Order Number: [id number] Exam Date: 06/11/2023 10:42 Report Date: 06/11/2023 [...] M.D. Signed By:06/11/23 1141 DD/ 1138 TD/TT: Advanced Manager: us Bruce Cervantes DO [facility] Final Result documented in this encounter Visit Diagnoses Not on filedocumented in this encounter
--- OUTSIDE RECORDS SUMMARY | 2024-12-12 11:15 | XMS_ITS | Clinical Summary ---
Author Organization [facility] Address [address] [place] [address] Care Team Providers Care Locum Tenens Psychiatrist Name Role Phone Billie Sharpe CERAMIC PLATER - BUYER LIAISON Primary Care Provider Allergies Active Allergy Reactions [...] - 10/17/2024 11:59 PM EDT Hospital Encounter [facility] [address] [place] [address] Discharge Disposition: Home or Self [...] FETOPROTEIN, MATERNAL Routine 10/17/2024 10:23 AM EDT [employer] CYTOLOGY Routine 01/01/2023 12:00 AM EDT C.TRACHOMATIS [...] Cutoff Neural Tube Defects Risks 1:1030 < 1:23648 1:250 Comments: The risk of an open neural tube defect is less than the screening cut-off. This test was developed and its performance characteristics determined by [facility]. It has not been cleared or approved [...] LABORATORY Comment: (NOTE) Initial sample Performed By: [facility] [address] [place] [address] Wood Molder: Pranay Rousseau MD, PhD [place] Number: [id number] 10/17/2024 10:2 3 AM EDT 10/17/2024 10:24 AM EDT [facility] Stefan Cervantes MD CHEMISTRY ORDERABLES Francesca l Result [facility] [address] [phone] [facility] [address] [phone] * [employer] Cytology (01/01/2023 12:00 AM EDT) Cytology Report Path Number: [id number] DIAGNOSIS Imaged ThinPrep Pap - Cervical (1 [...] Abnormal Clinical History Intrauterine device Z01.419 Routine fisher diving exam without abnormal findings High risk HPV DNA testing is requested if the diagnosis is abnormal Processing Lab: [address] [address] Interpretation performed at [address] [phone] This Pap Test has been evaluated with [...] result. GYNECOLOGIC CYTOLOGY REPORT Patient [facility]: [facility] [id number] [facility] ANATOMIC PATHOLOGY [address] [place] [address]. [place], [place] [address] [facility] The [place] [facility] CERVICAL MATERIAL 01/01/2023 023 7:03 AM EDT Mychal Nichols MD PATHOLOGY/CYTOLOGY ORDERABLES Final Result [facility] [address] [phone] [facility] * C.trachomatis N.gonorrhoeae DNA, Thin Prep (02/07/2018 1:05 PM EDT) Chlamydia By Thin Prep NEGATIVE NEG 02/09/2018 2:02 PM EDT [employer] Comment: CHLAMYDIA TRACHOMATIS DNA not detected by [...] NEGATIVE NEG 02/09/2018 2:02 PM EDT [facility] Comment: NEISSERIA GONORRHOEAE DNA not detected by [...] EDT 02/07/2018 1:05 PM EDT Pilar Marie CERAMIC PLATER - CNM MICROBIOLOGY - GENERA L ORDERABLES Final Result [facility] [address] [place] [address], [facility] [phone] [address] [phone] from Last 3 Months or Most Recently Relevant to Health Maintenance Insurance Advance Directives * Full Code (Latest Code Status on File) Date Activated Date Inactivated Comments 01/20/2023 7:21 AM 01/20/2023 3:02 PM Care Teams Locum Tenens Psychiatrist Relationship Specialty Start Date End Date Billie Sharpe, CERAMIC PLATER - BUYER LIAISON PCP - General Family Medicine 04/08/20
--- OUTSIDE RECORDS SUMMARY | 2024-12-12 11:15 | XMS_ITS | Encounter Summary ---
Author Organization [facility] Address [address] [place] [address] Care Team Providers Care Milk Deliverer Name Role Phone Dell Billie M TELEMEDICINE PHYSICIAN - DOOR ATTENDANT Primary Care Provider Reason for Referral * Imaging (Routine) - Closed Specialty Diagnoses / Procedures Referred By Contac t Referred To Contact Radiology Diagnoses Menstrual problem Procedures US NON OB TRANSVAGINAL Dana Akins MD [address] [place] [address] Phone: tel: fax: [facility] [address] [place] [address] Phone: tel: Referral ID Status Reason Start Date Expiration Date Visits Re quested Visits Authorized [id number] Closed 08/15/2020 08/15/2021 1 1 * Imaging (Routine) - Closed Specialty Diagnoses / Procedures Referred By Contac t Referred To Contact Radiology Diagnoses Menstrual problem Procedures US PELVIS COMPLETE Dana Akins MD [address] [place] [address] Phone: tel: fax: [facility] [address] [place] [address] Phone: tel: Referral ID Status Reason Start Date Expiration Date Visits Re quested Visits Authorized [id number] Closed 08/15/2020 08/15/2021 1 1 Encounter Details Date Type Department Care Team (Latest Contact Info) Description 08/15/2020 Transcribe Orders [facility] [address] [place] [address] Dana Akins MD [address] [place] [address] Menstrual problem (Primary Dx) Social History Tobacco [...] tract documented in this encounter Care Teams Milk Deliverer Relationship Specialty Start Date End Date Billie Sharpe, TELEMEDICINE PHYSICIAN - DOOR ATTENDANT PCP - General Family Medicine 04/08/20 documented as of this encounter
--- OUTSIDE RECORDS SUMMARY | 2024-12-12 11:15 | XMS_ITS | Encounter Summary ---
Author Organization [facility] Address [address] [place] [address] Care Team Providers Care Psychiatric Arnp Name Role Phone Unavailable Primary Care Provider Unavailabl e Encounter Details Date Type Department Care Team (Late st Contact Info) Description 01/03/2024 Abstract [facility] OB [address] [place] [address] Aditya Cervantes [facility] [address] [place], [id number] Social History Tobacco Use Types Packs/Day Years [...] Description 12/13/2024 1:40 PM EDT Routine [facility] OB [address] [place] [address] Aditya Cervantes [facility] [address] [place], [id number] documented as of this encounter Visit Diagnoses Not on filedocumented in this encounter
--- OUTSIDE RECORDS SUMMARY | 2024-12-12 11:15 | XMS_ITS | Encounter Summary ---
Author Organization [facility] Address [address] [place] [address] Care Team Providers Care Director Index Name Role Phone Unavailable Primary Care Provider Unavailabl e Encounter Details Date Type Department Care Team (Late st Contact Info) Description 10/04/2023 Clinisync Result Encounter [facility] External Department Unsolicited Bruce Cervantes, DO [address] [place] [address] Social History Tobacco Use Types Packs/Day Years [...] PM EDT Routine [facility] OB [address] [facility] [place] [address] Bruce Cervantes, DO [address] [place] [address] documented as of this encounter Procedures Procedure Name Priority Date/Time Associated Diagnosis Comments US RIGHT UPPER QUADRANT 10/04/2023 2:02 PM EDT [facility] LIPASE Routine 10/04/2023 1:40 PM EDT [facility] CMP (CMP) (FOR REMOTE [facility] USE) Routine 10/04/2023 1:40 PM EDT ALL AMYLASE Routine 10/04/2023 1:40 PM EDT OVA + PARASITE EXAM Routine 10/04/2023 1 :00 PM EDT documented in this encounter Results * US RIGHT UPPER QUADRANT (10/04/2023 2:02 PM EDT) Anatomical Region Laterality Modality Other 10/04/2023 2:02 PM EDT Narrative 10/04/2023 2:05 [place] [address] Ultrasound Report Signed Patient: ESTEFANIA CEDEÑO MR#: [id number] : 1995 Acct:[id number] Age/Sex: 28 / F ADM Date: Loc: [facility] 257-[address]: Bruce Cervantes D.O. Ordering Physician: Bruce Cervantes D.O. Date of Service: 10/04/23 Procedure(s): US right upper quadrant Accession Number(s): [id number] cc: Bruce Cervantes D.O.; Physician,Non-Staff [place].DAsiya [place] [address] Patient Name: ESTEFANIA CEDEÑO MRN: [id number] date: 1995 Sex: F Assigned Patient Location: [facility] Current Patient Location: [facility] Accession/Order Number: [id number] Exam Date: 10/04/2023 13:10 Report Date: 10/04/2023 [...] Signed By: 10/04/23 1405 DD/ 1402 TD/TT: All Terrain Vehicle Racer: Procedure Note Radiology, Radiologist, - 10/04/2023 [place] [address] Ultrasound Report Signed Patient: TRINITY CEDEÑO#: [id number] : 1995Acct:[id number] Age/Sex: FADM Date: Loc: [facility] 257-[address]: Bruce Cervantes D.O. Ordering Physician: Bruce Cervantes D.O. Date of Service: 10/04/23 Procedure(s): US right upper quadrant Accession Number(s): [id number] cc: Bruce Cervantes D.O.; Physician,Non-Staff Roberto The [place] [address] Patient Name: ESTEFANIA CEDEÑO MRN: [facility]:[id number] date: 1995 Sex: F Assigned Patient Location: [facility] Current Patient Location: [facility] Accession/Order Number: [id number] Exam Date: 10/04/2023 13:10 Report Date: 10/04/2023 [...] M.D. Signed By:10/04/23 1405 DD/ 1402 TD/TT: All Terrain Vehicle Racer: us Bruce Billy DO [facility] Final Result * [facility] LIPASE (10/04/2023 1:40 PM EDT) LIPASE 30.0 16.0 - 77.0 U/L TB 10/04/2023 1:40 PM EDT 10/04/2023 1:45 PM EDT Narrative [facility] - 10/04/2023 2:26 PM EDT Bruce Billy DO [facility] Final Result [facility] TB * (ABNORMAL) [facility] CMP (CMP) (FOR REMOTE [facility] USE) (10/04/2023 1:40 PM EDT) SODIUM 137 136 - 145 mmol/L [facility] POTASSIUM 3.5 3.5 - 5.1 mmol/L [facility] CHLORIDE 106 98 - 107 mmol/L [facility] CARBON DIOXIDE 20.4(L) 21.0 - 32.0 mmol/L [facility] ANION GAP 14.1 [facility] GLUCOSE 72(L) 74 - 106 mg/dL [facility] BLOOD UREA NITROGEN 6.0(L) 7.0 - 18.0 mg/dL [facility] CREATININE 0.39(L) 0.55 - 1.02 mg/dL [facility] TBH EGFR-AF LITHUANIAN >60 >=60 TBH TBH EGFR-NON AF LITHUANIAN >60 >=60 [facility] BUN CREATININE RATIO 15.4 [...] DO [facility] Final Result Performing Organization Address [facility] Co de Phone Number [facility] * ALL AMYLASE (10/04/2023 1:40 PM EDT) AMYLASE 58 25 - 115 U/L [facility] 10/04/2023 1:40 PM EDT 10/04/2023 1:45 PM EDT Narrative [facility] - 10/04/2023 2:14 PM EDT us Bruce Billy DO [facility] Final Result Performing Organization Address [facility] Number [facility] * OVA + PARASITE EXAM (10/04/2023 1:00 [...] possibility of a parasitic infection. Performed at: [address] [id number] Hotel Dining Room Cashier: Rubén Ellison PhD, Phone: [phone] 10/04/2023 1:00 PM EDT 10/04/2023 1:52 PM EDT Narrative [facility] - 10/06/2023 9:09 PM EDT us Bruce Billy DO LAB BLOOD ORDERABLES Final Resul t Performing Organization Address [facility] Co de Phone Number [facility] documented in this encounter Visit Diagnoses Not on filedocumented in this encounter
--- OUTSIDE RECORDS SUMMARY | 2024-12-12 11:15 | XMS_ITS | Encounter Summary ---
Author Organization [facility] Address [address] [place] [address] Care Team Providers Care Car Salesperson Name Role Phone Unavailable Primary Care Provider Unavailabl e Encounter Details Date Type Department Care Team (Late st Contact Info) Description 08/04/2024 Abstract [facility] OB [address] [facility] [address] Aditya Cervantes [facility] [address], [facility] Social History Tobacco Use Types Packs/Day Years [...] [facility] OB [address] [place] [address] Aditya Cervantes [facility] [address] [place], [place] [id number] documented as of this encounter Visit Diagnoses Not on filedocumented in this encounter
[2024-12-12 12:40] LABS: Glucose 1 Hour 198 mg/dL (<180)
[2024-12-12 13:45] LABS: Glucose 2 Hour 171 mg/dL (<155)
[2024-12-12 14:56] LABS: Glucose 3 Hour 74 mg/dL (<140)
== END 2024-12-12 11:12 | disposition home or self-care (01) ==
LOC: LAB 11:12
PROVIDERS: Visit Provider Obstetrics & Gynecology
DX: O99.810 Abnormal glucose complicating pregnancy (principal); Z3A.28 28 weeks gestation of pregnancy
CPT/HCPCS: 36415; 82951; 82952

== ENCOUNTER 2025-01-19 08:58 | Outpatient (OUT) | payer MEDICAID, SELFPAY ==
--- NOTE | 2025-01-19 08:59 | US_ITS ---
[place] [id number] Patient Name: TARA FLOREZ MRN: [id number] date: 1995 Sex: F Assigned Patient Location: [facility] Current Patient Location: Accession/Order Number: [id number] Exam Date: 01/19/2025 09:10 Report Date: 01/19/2025 14:26 At the request of: BRUCE CARD DO Procedure: US OB BPP w non-stress Ultrasound biophysical profile HISTORY: Excessive growth Adequate breathing movement, gross body movement, tone and amniotic fluid volume for total score of 8 out of 8. The amniotic fluid index is 16.4cm within normal limits. The heart rate 139 bpm. US/US OB BPP w non-stress IMPRESSION: Adequate ultrasound biophysical profile Impression dictated by: Carroll Saez M.D. 01/19/2025 2:26 PM [facility]ation [facility] Electronically authenticated by: [id number] Y Date: 01/19/2025 14:26
--- OUTSIDE RECORDS SUMMARY | 2025-01-19 09:08 | XMS_ITS | CCD ---
Author Organization [facility] Care Team Providers Care Licensed Massage Practitioner Name Role Phone NO FAMILY PHYSICIAN, [phone] Unavailable Unavail able FELIX GALVAN Unavailable Unavailable Miguel Holley Primary Care Provider Jackson Haas Primary Care Provider Miguel Holley Primary Care Provider Miguel Holley Primary Care Provider Miguel Holley CNP Primary Care Provider Dell FACILITIES MAINTENANCE WORKER - Miguel IVORY Primary Care Provider MIGUEL HOLLEY Referring Unavailable MIGUEL HOLLEY Primary Care Unavailable Dell FACILITIES MAINTENANCE WORKER - DIANELYS, Miguel Berry Primary Care Provider Dell FACILITIES MAINTENANCE WORKER - DIANELYS, Miguel Berry Primary Care Provider Shona Lucio Primary Care Physician Yeison Holley FACILITIES MAINTENANCE WORKER - RN NICU, Miguel Berry Primary Care Provider Dell FACILITIES MAINTENANCE WORKER - Miguel IVORY Primary Care Provider Unavailable Primary Care Provider Unavailabl ADITYA Minaya Referring Unavailable MIGUEL HOLLEY Primary Care Unavailable ADITYA CERVANTES Attending Unavailable BILLYADITYA ANTON Attending Unavailable DAYRON, LATASHA Attending Unavailable ADITYA CERVANTES Attending Unavailable ADITYA CERVANTES Attending Unavailable DAYRON, LATASHA Attending Unavailable BILLY ADITYA Referring Unavailable ADITYA CERVANTES Attending Unavailable DAYRON, LATASHA Attending Unavailable DAYRON, LATASHA Attending Unavailable DAYRON, LATASHA Attending Unavailable DAYRON, LATASHA Attending Unavailable Allergies Allergy Classification Reported Allergen(s) Allergy Type Date of Onset Reaction(s) Facility Aminoketones (4 sources) buPROPion; Translations: [Wellbutrin SR 100 MG Oral Tablet Extended Release 12 Hour] Drug Allergy 03-05-20 20 Wellbutrin SR [facility] Work Phone: Corticosteroids (6 sources) Triamcinolone Drug Allergy 10-14-19 14 Other (See Comments[facility] Lisdexamfetamine (1 source) Lisdexamfetamine Drug Allergy 10-04-19 21 Vyvanse [facility] Work Phone: Naltrexone (4 sources) Naltrexone; Translations: [Naltrexone HCl 50 MG Oral Tablet] Drug Allergy 03-05-20 20 Naltrexone HCl [facility] Work Phone: (1 source) Triamcinolone; Translations: [TRIAMCINOLONE ACETONIDE] Drug Allergy 10-12-[address] [facility] Repository (16 sources) Triamcinolone; Translations: [Kenalog] Drug Allergy 07-06-19 20 [facility] Work Phone: (20 sources) Triamcinolone Drug Allergy 10-14-19 14 Other (See Comments), Other, Hives [place], [place] (17 sources) Poison spencer Allergy to substance 07-20-19 [facility] Work Phone: (3 sources) buPROPion; Translations: [Wellbutrin SR 100 MG Oral Tablet Extended Release 12 Hour] Drug Allergy 03-05-20 20 Wellbutrin SR [facility] Work Phone: (3 sources) Naltrexone; Translations: [Naltrexone HCl 50 MG Oral Tablet] Drug Allergy 03-05-20 20 Naltrexone HCl [facility] Work Phone: (20 sources) Other Propensity to adverse reactions 04-18-20 [...] by mouth once daily in the morning amphetamine-dextroamphetam ine (ADDERALL XR) 25 MG extended release capsule Indications: ADD (attention deficit disorder) Take 1 capsule by mouth every morning . Earliest Fill Date: 01/02/17 30 capsule 0 01/02/2017 Active aspirin 81 mg delayed release oral tablet (16 sources) Platelet Aggregation Inhibitor, Nonsteroidal Anti-inflammator y Drug take 1 tablet by mouth once daily aspirin 81 MG EC tablet Take 81 mg by mouth Daily Active cephalexin 500 mg oral capsule (1 source) Cephalosporin Antibacterial Start: 10-15-2020 End: 10-22-2020 take 1 capsule by mouth three times daily cephALEXin (KEFLEX) 500 MG capsule Take 1 capsule by mouth 3 times daily for 7 days 21 capsule 0 10/15/2020 10/22/2020 Active Continuous Glucose S[facility]Dexcom [facility]6 Sensor[facility] ([facility] Start: 12-13-2024 Continuous Glucose Sensor (Dexcom G6 Sensor) [facility] Indications: Elevated glucose tolerance test , 28 weeks gestation of ([facility]) , Gestational diabetes mellitus (GDM), antepartum, gestational diabetes method of control unspecified ([facility]) 1 each Every 10 (ten) days 3 each 3 12/13/2024 Active Continuous Glucose Transmitter (Dexcom G6 transmitter) misc (6 sources) Start: 12-19-2024 Continuous Glucose Transmitter (Dexcom G6 transmitter) [facility] Indications: Gestational diabetes mellitus (GDM), antepartum, gestational diabetes method of control unspecified ([facility]) Use as instructed 1 each 12/19/2024 Active Docusate (15 sources) End: 08-29-2024 Docusate Calcium (STOOL SOFTENER PO) Take by mouth 08/29/2024 Discontinued Docusate Calcium (STOOL SOFTENER PO) Take by mouth Active ethinyl estradiol 0.035 mg / norgestimate 0.25 mg oral tablet (5 sources) Progestin, Estrogen take 1 tablet by mouth once daily norgestimate-ethinyl estradiol (SPRINTEC 28) 0.25-35 MG-MCG per tablet Take 1 tablet by mouth daily. 0 Active fexofenadine hydrochloride 180 mg oral tablet (7 sources) Histamine-1 Receptor Antagonist Start : 12-17 take 1 tablet by mouth once daily fexofenadine (NIKOLAS) 180 MG tablet Indications: Poison spencer Take 1 tablet by mouth daily 30 tablet 1 12/17/2016 Active hydrocortisone 25 mg/ml topical lotion (7 sources) Corticosteroid Start : 12-17 hydrocortisone (HYTONE) 2.5 % lotion Indications: Poison spencer Apply topically 2 times daily. 118 mL 1 12/17/2016 Active ibuprofen 800 mg oral tablet (12 sources) Nonsteroidal Anti-inflammatory Drug Start : 01-05 ibuprofen 800 MG tablet 01/06/2024 Active levonorgestrel 0.874903 mg/hr intrauterine system (17 sources) Progestin, Progestin-containin g Intrauterine Device Start : 07-20 Mirena (52 MG) 20 MCG/24HR Intrauterine Intrauterine device 07/20/2019 Provider: 24 hr metFORMIN hydrochloride 500 mg extended release oral tablet (9 sources) Biguanide Start : 06-14 End: 06-14 take 1 tablet by mouth every twenty-four hours at mealtime metFORMIN XR (Glucophage-XR) 500 MG 24 hr tablet Indications: Hyperglycemia during ([facility]) Take 1 tablet (500 mg) by mouth in the evening. Take with meals Do not crush, chew, or split. 30 tablet 11 01/09/2025 02/08/2025 Active methylPREDNISolone (19 sources) Corticosteroid Start : 02-22 methylPREDNISolone (Medrol Dospak) 4 MG tablets Indications: Rash Day 1: 6 tablets Day 2: 5 tablets Day 3: 4 tablets Day 4: 3 tablets Day 5: 2 tablets Day 6: 1 tablet 21 tablet 02/23/2024 Active Start: 12-05-2019 End: 03-05-2020 Medrol 4 MG Oral Tablet Ther apy Pack 12/05/2019 - 03/05/2020 Provider: Poly Franco CNP multivitamin () 27-0.8 MG tablet (5 sources) Start: 07-03-2024 End: 08-29-2024 take 1 tablet by mouth once daily multivitamin () 27-0.8 MG tablet Indications: 6 weeks follow-up Take 1 tablet by mouth Daily 360 tablet 07/03/2024 08/29/2024 Discontinued Start: 07-03-2024 End: 07-03-2025 take 1 tablet [...] 08/17/2019 - 09/14/2019 Provider: Miguel Holley CNP polysaccharide iron complex 391 mg oral capsule (7 sources) Start: 11-22-2024 End: 12-22-2024 take 1 capsule by mouth once daily iron polysaccharides (ProFe) 391.3 (180 Fe) MG capsule Indications: Dizziness Take 1 capsule (391.3 mg) by mouth Daily 30 capsule 6 11/22/2024 12/22/2024 Active Vit-Fe Fumarate-FA (PNV Plus Multivitamin) 27-1 MG tablet (20 sources) Start: 08-04-2024 take 1 tablet by mouth once daily Vit-Fe Fumarate-FA (PNV Plus Multivitamin) 27-1 MG tablet Indications: Encounter for supervision of normal first in first trimester ([facility]) Take 1 tablet by mouth Daily 30 tablet 11 08/04/2024 Active Start: 08-04-2024 take 1 tablet by cecile th once daily Vit-Fe Fumarate-FA (PNV Plus Multivitamin) 27-1 MG tablet Indications: Encounter for supervision of normal first in first trimester Take 1 tablet by mouth Daily 30 tablet 11 08/04/2024 Active Vit-Fe Fumarate-FA ( Plus/Iron) 27-1 MG tablet [...] 12.5 mg simethicone 80 mg chewable tablet (15 sources) End: 08-29-2024 take 1 tablet by mouth every six hours as needed simethicone (Mylicon) 80 MG chewable tablet Chew 80 mg every 6 (six) hours if needed for flatulence 08/29/2024 Discontinued topiramate 50 mg oral tablet (4 sources) [...] mL lisdexamfetamine dimesylate 50 mg oral capsule (7 sources) Central Nervous System Stimulant Start: 09-10-2021 End: 07-15-2023 take 1 capsule by mouth in the morning Vyvanse 50 MG capsule Take 50 mg by mouth in the morning. 0 03/06/2023 07/15/2023 Discontinued (Therapy completed) 1 ml morphine sulfate 4 mg/ml cartridge [...] Cream 09/11/2019 - 10/12/2019 Provider: Poly Franco RN NICU Problems Active Problems Problem Classification Problem Date Documented Date Episodic/Chronic Abdominal pain (1 source) Generalized abdominal pain; Translations: [Generalized abdominal pain] Episodic Administrative/social admission (5 sources) Patient encounter status; Translations: [Persons encountering health services in other specified circumstances] 04-18-2024 Episodic Anxiety disorders (20 sources) Generalized anxiety disorder; Translations: [Anxiety disorder] Onset: 07-06-2019 Chronic Attention-deficit conduct and disruptive behavior disorders (9 sources) Attention deficit hyperactivity disorder, predominantly inattentive type; Translations: [Other specified behavioral and emotional disorders with onset usually occurring in childhood and adolescence] Onset: 03-05-2014 03-05-2014 Chronic Attention-deficit, conduct, and disruptive behavior disorders (1 source) Attention-deficit hyperactivity disorder, unspecified type Chronic Conditions associated with dizziness or vertigo (2 sources) Dizziness; Translations: [Dizziness and giddiness] 11-22-2024 Episodic Diabetes mellitus without complication (2 sources) Abnormal glucose tolerance test; Translations: [Other abnormal glucose] 12-06-2024 Episodic Diabetes or abnormal glucose tolerance complicating ; childbirth; or the puerperium (12 sources) History of gestational diabetes mellitus; Translations: [Personal history of gestational diabetes] 08-29-2024 Episodic Immunizations and screening for infectious disease (12 sources) Exposure to communicable disease; Translations: [HIV screening] Onset: 03-19-2020 Episodic Miscellaneous mental health disorders (15 sources) Primary [...] in left arm Onset: 12-04-2021 Episodic Other female genital disorders (2 sources) Vaginal discharge; Translations: [Other specified noninflammatory disorders of vagina] 09-26-2024 Episodic Other liver diseases (1 source) Steatosis [...] Translations: [Abnormal weight gain] 05-17-2024 Episodic Other and delivery including normal (20 sources) Second trimester ; Translations: [Encounter for supervision of normal , unspecified, second trimester] Onset: 12-06-2023 Resolved: 01-03-2024 07-13-2023 Episodic Other screening for suspected conditions (not mental disorders or infectious disease) (20 sources) Encounter for screening for diabetes mellitus; Translations: [Diabetes Risk Test Score] Onset: 07-06-2019 Episodic Residual codes; unclassified (2 sources) Gestation period, 13 weeks; Translations: [13 weeks gestation of ] 08-29-2024 Episodic Residual codes; unclassified (3 sources) Gestation period, 17 weeks; Translations: [17 weeks gestation of ] Onset: 10-17-2024 09-26-2024 Episodic Residual codes; unclassified (2 sources) Gestation period, 21 weeks; Translations: [21 weeks gestation of ] 10-25-2024 Episodic Residual codes; unclassified (1 source) 17 weeks gestation of ; Translations: [17 weeks gestation of ] Onset: 10-17-2024 Episodic Residual codes; unclassified (2 sources) Gestation period, 25 weeks; Translations: [25 weeks gestation of ] 11-22-2024 Episodic Residual codes; unclassified (2 sources) Gestation period, 28 weeks; Translations: [28 weeks gestation of ] 12-13-2024 Episodic Residual codes; unclassified (2 sources) Gestation period, 32 weeks; Translations: [32 weeks gestation of ] 01-09-2025 Episodic Unclassified (1 source) Patient encounter status; Translations: [Encounter for intrauterine device placement] Viral infection (9 sources) Herpes simplex of female genitalia; Translations: [Herpesviral infection of other urogenital tract] Onset: 06-30-2011 11-20-2014 Chronic Past or Other Problems Problem Classification Problem Date Documented Date Episodic/Chronic Allergic reactions (20 sources) Contact dermatitis due to plants; Translations: [Contact dermatitis due to poison spencer] Onset: 09-05-2019 Episodic Complication of device; implant or graft (1 source) IUD threads lost; Translations: [Displacement of intrauterine contraceptive device, initial encounter] Onset: 01-20-2023 01-20-2023 Episodic Other complications of (20 sources) Excessive growth affecting management of mother; [...] [Body Mass Index] Onset: 07-06-2019 Viral infection (10 sources) Herpes labialis; Translations: [Other specified viral infection] Onset: 11-20-2014 11-20-2014 Episodic Results Test Name Value Interpretation Reference Range Facility Urinalysis macro (dipstick) panel (U)on 01-09-2025 Bilirubin, UA Negative Negative - 4(70) +++ mg/dL [facility] Blood, UA Negative Negative - 50 Chuy/mcL [facility] Clarity, UA Clear [facility] Color, UA Yellow [facility] Glucose, UA Negative Negative - 2000(110) ++++ mg/dL [facility] Interpretation and review of laboratory results Normal [facility] Ketones, UA Negative Negative - 160(16) ++++ mg/dL [facility] Leukocytes, UA Negative Negative - 500+++ Sadi/mcL [facility] Nitrite, UA Negative Negative - Positive [facility] pH, UA 6.5 5 - 9 [facility] Protein, UA Negative Negative - 2000(20) ++++ mg/dL [facility] Spec Grav, UA 1.015 1 - 1.03 [facility] Urobilinogen, UA 1.0 0.2 - 12 mg/dL [facility] US OB FOLLOW UP TRANSABDOMIN AL APPROACHon 12-27-2024 US OB FOLLOW UP TRANSABDOMINAL APPROACH EXAM: US OB FOLLOW UP TRANSABDOMINAL APPROACH HISTORY: Gestational diabetes. COMPARISON: Ob ultrasound 10/25/2024. TECHNIQUE: Two-dimensional transabdominal grayscale ultrasound imaging of the pelvis was performed. FINDINGS: Gestation: Single Presentation: Cephalic Cardiac Activity: 144 beats per minute Amniotic Fluid Index: 16.5 cm MEASUREMENTS: BPD: 7.5 cm EGA: 30 weeks 1 days HC: 27.8 cm EGA: 30 weeks 3 days AC: 27.1 cm EGA: 31 weeks 1 days FL: 6.0 cm EGA: 31 weeks 1 days HC/AC Ratio: 1.03 The gestational age by today's ultrasound is 30 weeks 3 days (+/- 7 days gestation). Estimated Weight: 1680 grams, +/- 252 grams ( 3 lb 11 oz). Weight Percentile for gestational age: 68 % IMPRESSION: 1. Single, live intrauterine gestation 30 weeks, 1 days by LMP. Today's ultrasound measurements correlate with a gestational age of 30 weeks 3 days. Estimated weight is 1680 grams, +/- 252 grams ( 3 lb 11 oz) which correlates to 68 %. CARTER by today's ultrasound is 03/04/2025. Interpreted by: Electronically signed by PENG JOHNSON II, MD, PHD at 28-Dec-2024 08:33:38 AM [facility] Normal Not Available Comment on above: Order Comment: US OB SCAN FOR GROWTH Estimated Date of Delivery: 03/06/25 Gestational Age as of 12/13/2024: 28w1d Urinalysis macro (dipstick) panel (U)on 12-27-2024 Bilirubin, UA Negative Negative - 4(70) +++ mg/dL [facility] Blood, UA Negative Negative - 50 Chuy/mcL [facility] Clarity, UA Clear [facility] Color, UA Yellow [facility] Glucose, UA Positive Negative - 1999(110) ++++ mg/dL [facility] Interpretation and review of laboratory results Abnormal [facility] Ketones, UA Negative Negative - 160(16) ++++ mg/dL [facility] Leukocytes, UA Negative Negative - 500+++ Sadi/mcL [facility] Nitrite, UA Negative Negative - Positive [facility] pH, UA 6 5 - 9 [facility] Protein, UA Positive Negative - 1999(20) ++++ mg/dL [facility] Spec Grav, UA 1.02 1 - 1.03 [facility] Urobilinogen, UA 1.0 0.2 - 12 mg/dL [facility] Urinalysis macro (dipstick) panel (U)on 12-13-2024 Bilirubin, UA Negative Negative - 4(70) +++ mg/dL [facility] Blood, UA Negative Negative - 50 Chuy/mcL [facility] Clarity, UA Clear [facility] Color, UA Yellow [facility] Glucose, UA Negative Negative - 1999(110) ++++ mg/dL [facility] Interpretation and review of laboratory results Normal [facility] Ketones, UA Negative Negative - 160(16) ++++ mg/dL [facility] Leukocytes, UA Negative Negative - 500+++ Sadi/mcL [facility] Nitrite, UA Negative Negative - Positive [facility] pH, UA 6 5 - 9 [facility] Protein, UA Negative Negative - 1999(20) ++++ mg/dL [facility] Spec Grav, UA 1.015 1 - 1.03 [facility] Urobilinogen, UA 1.0 0.2 - 12 mg/dL [facility] GLUCOSE TOLERANCE 3 HOURon 0 12-12-2024 GLUCOSE TOLERANCE 3 HOUR High mg/dL [facility] Comment on above: GLU FAST 85 (<95) Co l: 12/12/24 1118 GLU 1HR 198H (<180) Col: 12/12/24 1220 GLU 2HR 171H (<155) Col: 12/12/24 1320 GLU 3HR 74 (<140) Col: 12/12/24 1422 Interpretation and review of laboratory results Abnormal [facility] ECG 12-LEADon 12-07-2024 [facility] [place] [id number] Electrocardiograph Report Signed Patient: ESTEFANIA CEDEÑO MR#: [id number] : 1995 Acct:[id number] Age/Sex: 29 / F ADM Date: 12/05/24 Loc: CR Attending Dr: Latasha Padgett Ordering Physician: Latasha Padgett Date of Service: 12/05/24 Procedure(s): ECG 12 lead Accession Number(s): [id number] cc: [facility] Test Date: 2024-12-05 Pat Name: ESTEFANIA CEDEÑO Department: Room: - Gender: Female Right Of Way Supervisor: : 1995 Requested By: 0923 Order Number: [id number] [place] MD: ANTON THORPE Measurements Intervals Renick Rate: 68 P: 55 WA: 116 QRS: 72 QRSD: 94 T: 14 QT: 411 QTc: 439 Interpretive Statements SINUS RHYTHM WITH SHORT WA INTERVAL NONSPECIFIC T-WAVE ABNORMALITY No previous ECG available for comparison Electronically Signed On 12-07-2024 9:00:49 EDT by ANTON THORPE Dictated By: Anton Thorpe M.D. Signed By: 12/07/2489912/07/24899 DD/ 6 TD/TT: Gaming Cage Worker: [facility] Radiology, Radiologestefania andrade MD - 12/07/2024 [place] [address] Electrocardiograph Report Signed Patient: ESTEFANIA CEDEÑO MR#: [id number] : 1995 Acct:[id number] Age/Sex: 29 / F ADM Date: 12/05/24 Loc: CR Attending Dr: Latasha Padgett Ordering Physician: Latasha Padgett Date of Service: 12/05/24 Procedure(s): ECG 12 lead Accession Number(s): [id number] cc: [facility] Test Date: 2024-12-05 Pat Name: ESTEFANIA CEDEÑO Department: Room: - Gender: Female Right [employer] Supervisor: : 1995 Requested By: 0923 Order Number: [id number] Reading MD: ANTON THORPE Measurements Intervals Renick Rate: 68 P: 55 WA: 116 QRS: 72 QRSD: 94 T: 14 QT: 411 QTc: 439 Interpretive Statements SINUS RHYTHM WITH SHORT WA INTERVAL NONSPECIFIC T-WAVE ABNORMALITY No previous ECG available for comparison Electronically Signed On 12-07-2024 9:00:49 EDT by ANTON THORPE Dictated By: Anton Thorpe M.D. Signed By: 12/07/2489912/07/24899 DD/ 6 TD/TT: Gaming Cage Worker: [facility] ECG 12-LEADOrdered By: Radio logist Radiology on 12-07-2024 [facility] Work Phone: ALL CBC WITH AUTO DIFFon BASOPHILS ABSOLUTE AUTO 0 [facility] Basophils/100 WBC (Bld) 0.2 % 0.2 - 2.0 % [facility] Eosinophils/100 WBC (Bld) 0.6 % Low 0.9 - 7.0 % [facility] Erythrocyte distribution width (RBC) [Ratio] 13.7 % 11.0 - 15.0 % [facility] Hematocrit (Bld) [Volume fraction] 34.3 % Low 36.0 - 48.0 % [facility] Hemoglobin (Bld) [Mass/Vol] 11.5 g/dL Low 12.0 - 16.0 g/dL [facility] IMMATURE GRANULOCYTES ABS AUTO 0.08 High [facility] Immature granulocytes/100 WBC (Bld) 0.7 % High 0.0 - 0.5 % [facility] Interpretation and review of laboratory results Abnormal [facility] LYMPHOCYTES ABSOLUTE AUTO 2.1 [facility] Lymphocytes/100 WBC (Bld) 18.9 % Low 20.5 - 60.0 % [facility] MCH (RBC) [Entitic mass] 27.8 pg 26.7 - 34.0 pg [facility] MCHC (RBC) [Mass/Vol] 33.5 g/dL 29.9 - 35.2 g/dL [facility] MCV (RBC) [Entitic vol] 82.9 fL 81.0 - 99.0 fL [facility] MONOCYTES ABSOLUTE AUTO 0.5 [facility] Monocytes/100 WBC (Bld) 4 % 1.7 - 12.0 % [facility] NEUTROPHILS ABSOLUTE AUTO 8.6 High [facility] Neutrophils/100 WBC (Bld) 75.6 % High 43.0 - 75.0 % [facility] Platelet mean volume (Bld) [Entitic vol] 11.1 fL 9.5 - 13.5 fL [facility] TBH EO # 0.1 [facility] PLT 140 Low [facility] TB RBC 4.14 Low [facility] TBH WBC 11.3 High [facility] ECG 12-LEADon 12-05-2024 Radiology Study observation (narrative) [facility] Urinalysis macro (dipstick) panel (U)on 11-22-2024 Bilirubin, UA Negative Negative - 4(70) +++ mg/dL [facility] Blood, UA Negative Negative - 50 Chuy/mcL [facility] Clarity, UA Clear [facility] Color, UA Yellow [facility] Glucose, UA Negative Negative - 2000(110) ++++ mg/dL [facility] Interpretation and review of laboratory results Abnormal [facility] Ketones, UA Positive Negative - 160(16) ++++ mg/dL [facility] Comment on above: trace Leukocytes, UA Negative Negative - 500+++ Sadi/mcL [facility] Nitrite, UA Negative Negative - Positive [facility] pH, UA 6.5 5 - 9 [facility] Protein, UA Negative Negative - 2000(20) ++++ mg/dL [facility] Spec Grav, UA 1.025 1 - 1.03 [facility] Urobilinogen, UA 0.2 0.2 - 12 mg/dL [facility] MHPT AFP, MATERNALon 10-30- 025 MHPT DETERMINED BY Ultrasound [facility] MHPT DUE DATE SEE NOTE [facility] Comment on above: Results for Estimate d Due Date: 03 06 25 MHPT FAMILY HISTORY No [facility] MHPT GESTAT AGE (EXACT) 20 wks, 0 days [facility] MHPT INS REQ MATERN DIAB No [facility] MHPT INTERPRETATION Screen Neg [facility] Comment on above: (NOTE) INTERPRETATION: SCREEN NEGATIVE for open spina bifida Neural Tube Defects (NTD) Negative Pre-Test Post-Test Cutoff Neural Tube Defects Risks 1:1030 < 1:29761 1:250 Comments: The risk of an open neural tube defect is less than the screening cut-off. This test was developed and its performance characteristics determined by [facility]. It has not been cleared or approved by the US Food and Drug Administration. This test was performed in a CLIA certified laboratory and is intended for clinical purposes. MHPT [age] [facility] MHPT [facility]NAL RACE [facility] 234.0 lbs. [facility] MHPT MOM FOR AFP 0.82 [facility] MHPT NUMBER OF FETUSES Sanchez [facility] MHPT PATIENT'S AFP 36 ng/mL [facility] MHPT SMOKING Unknown [facility] MHPT SPECIMEN See Note [facility] Comment on above: (NOTE) Initial sample Performed By: [facility] [address] [place] [address] Forestry Biology Specialist: Pranay Rousseau MD, PhD CLIA Number: [id number] Original Ordering Provider: ADITYA CRAVEN CLINISYCAYDEN [facility] Urinalysis macro (dipstick) panel (U)on 10-25-2024 Bilirubin, UA Negative Negative - 4(70) +++ mg/dL [facility] Blood, UA Negative Negative - 50 Chuy/mcL [facility] Clarity, UA Clear [facility] Color, UA Yellow [facility] Glucose, UA Negative Negative - 2000(110) ++++ mg/dL [facility] Interpretation and review of laboratory results Normal [facility] Ketones, UA Negative Negative - 160(16) ++++ mg/dL [facility] Leukocytes, UA Negative Negative - 500+++ Sadi/mcL [facility] Nitrite, UA Negative Negative - Positive [facility] pH, UA 5.5 5 - 9 [facility] Protein, UA Negative Negative - 2000(20) ++++ mg/dL [facility] Spec Grav, UA 1.03 1 - 1.03 [facility] Urobilinogen, UA 0.2 0.2 - 12 mg/dL [facility] AFP, Maternalon 10-20-2024 Determined by Ultrasound [facility] Comment on above: Performed By: #### A AFPM #### [facility] [address] [place] [address] Biscuit Maker: Dallas Xiong MD Due Date SEE NOTE [facility] Comment on above: Result Comment: Resu lts for Estimated Due Date: 03 06 25 Performed By: #### A AFPM #### [facility] [address] [place] [address] Biscuit Maker: Dallas Xiong MD Family History No Normal [facility] Comment on above: Performed By: #### A AFPM #### [facility] [address] [place] [address] Biscuit Maker: Dallas Xiong MD Gestat Age (exact) 20 wks, 0 days [facility] Comment on above: Performed By: #### A AFPM #### [facility] [address] [place] [address] Biscuit Maker: Dallas Xiong MD Ins Req Matern Diab [facility] Comment on above: Performed By: #### A AFPM #### [facility] [address] [place] [address] Biscuit Maker: Dallas Xiong MD Interpretation Screen Neg Normal [facility] Comment on above: Result Comment: (NOT E) INTERPRETATION: SCREEN NEGATIVE for open spina bifida Neural Tube Defects (NTD) Negative Pre-Test Post-Test Cutoff Neural Tube Defects Risks 1:1030 < 1:35208 1:250 Comments: The risk of an open neural tube defect is less than the screening cut-off. This test was developed and its performance characteristics determined by [facility]. It has not been cleared or approved by the US Food and Drug Administration. This test was performed in a CLIA certified laboratory and is intended for clinical purposes. Performed By: #### A AFPM #### [facility] [address] [place] [address] Biscuit Maker: Dallas Xiong MD [age] [facility] Comment on above: Performed By: #### A AFPM #### [facility] [address] [place] [address] Biscuit Maker: Dallas Xiong MD Maternal Race Nonblack [facility] Comment on above: Performed By: #### A AFPM #### [facility] [address] [place] [address] Biscuit Maker: Dallas Xiong MD Maternal Weight 234.0 lbs. [facility] Comment on above: Performed By: #### A AFPM #### [facility] [address] [place] [address] Biscuit Maker: Dallas Xiong MD MoM for AFP 0.82 [facility] Comment on above: Performed By: #### A AFPM #### [facility] [address] [place] [address] Biscuit Maker: Dallas Xiong MD Number of Fetuses Sanchez [facility] Comment on above: Performed By: #### A AFPM #### [facility] [address] [place] [address] Biscuit Maker: Dallas Xiong MD Patient's AFP 36 ng/mL [facility] Comment on above: Performed By: #### A AFPM #### [facility] [address] [place] [address] Biscuit Maker: Dallas Xiong MD Smoking Unknown [facility] Comment on above: Performed By: #### A AFPM #### [facility] [address] [place] [address] Biscuit Maker: Dallas Xiong MD Specimen See Note [facility] Comment on above: Result Comment: (NOT E) Initial sample Performed By: [facility] [address] [place] [address] Forestry Biology Specialist: Pranay Rousseau MD, PhD CLIA Number: [id number] Performed By: #### A AFPM #### [facility] [address] [place] [address] Biscuit Maker: Dallas Xiong MD IGP,APTIMA HPV,AGE GDLNon AGE GDLN ACOG TESTING Note . [facility] Comment on above: TESTS RESULT FLAG U NITS REF RANGE LAB Clinician Provided Cytology Information Other.............. No. of containers..01 ThinPrep Vial Age Susan MANTILLA Geetha... FLAG LEGEND: L-Low Normal,H-High Normal,LL-Alert Low,HH-Alert High <-Panic Low,>-Panic High,A-Abnormal,AA-Critical Abnormal Performed at: 01 [facility] [address] [place] [address] Lynda Almaguer MD, IGP, RFX APTIMA HPV ASCU Note . [facility] Comment on above: TESTS RESULT FLAG UN ITS REF RANGE LAB DIAGNOSIS: 02 NEGATIVE FOR INTRAEPITHELIAL LESION OR MALIGNANCY. FUNGAL ORGANISMS MORPHOLOGICALLY CONSISTENT WITH MARTHA SPECIES ARE PRESENT. CELLULAR CHANGES ASSOCIATED WITH INFLAMMATION ARE PRESENT. Specimen adequacy: 02 Satisfactory for evaluation. Endocervical and/or squamous metaplastic cells (endocervical component) are present. Performed by: Juliana Correia Franchise Manager . 02 Note: Note 02 The Pap [...] <-Panic Low,>-Panic High,A-Abnormal,AA-Critical Abnormal Performed at: [address] [address] Lynda Almaguer MD, Performed at: =[facility] [id number] Biscuit Maker: Lynda Almaguer MD, Phone: [phone] Performed at: [address] [id number] Biscuit Maker: Lynda Almaguer MD, Phone: [phone] [facility]-SPATULA BRUSH-ALONE 2 [facility] US OB 14+ WEEKS ANATOMY SCAN on 09-26-2024 US OB 14+ WEEKS ANATOMY SCAN EXAM: US OB 14+ WEEKS ANATOMY SCAN [...] II, MD, PHD at 25-Oct-2024 11:18:35 PM [facility] Normal Not Available Comment on above: Order Comment: US OB ANATOMY SINGLE W US OB CERVICAL LENGTH Estimated Date of Delivery: 03/06/25 Gestational Age as of 09/26/2024: 17w0d Urinalysis macro (dipstick) panel (U)on 09-26-2024 Bilirubin, UA Negative Negative - 4(70) +++ mg/dL [facility] Blood, UA Negative Negative - 50 Chuy/mcL [facility] Clarity, UA Clear N[facility] Color, UA Yellow [facility] Glucose, UA Negative Negative - 2000(110) ++++ mg/dL [facility] Interpretation and review of laboratory results Normal [facility] Ketones, UA Positive Negative - 160(16) ++++ mg/dL [facility] Leukocytes, UA Negative Negative - 500+++ Sadi/mcL [facility] Nitrite, UA Negative Negative - Positive [facility] pH, UA 7 5 - 9 [facility] Protein, UA Negative Negative - 1999(20) ++++ mg/dL [facility] Spec Grav, UA 1.02 1 - 1.03 [facility] Urobilinogen, UA 0.2 0.2 - 12 mg/dL [facility] Urinalysis macro (dipstick) panel (U)on 08-29-2024 Bilirubin, UA Negative Negative - 4(70) +++ mg/dL [facility] Blood, UA Positive Negative - 50 Chuy/mcL [facility] Comment on above: trace-intact Clarity, UA Clear [facility] Color, UA Yellow [facility] Glucose, UA Negative Negative - 1999(110) ++++ mg/dL [facility] Interpretation and review of laboratory results Abnormal [facility] Ketones, UA Negative Negative - 160(16) ++++ mg/dL [facility] Leukocytes, UA Negative Negative - 500+++ Sadi/mcL [facility] Nitrite, UA Negative Negative - Positive [facility] pH, UA 7 5 - 9 [facility] Protein, UA Negative Negative - 1999(20) ++++ mg/dL [facility] Spec Grav, UA 1.025 1 - 1.03 [facility] Urobilinogen, UA 0.2 0.2 - 12 mg/dL [facility] US OB TRANSVAGINALon 025 US OB TRANSVAGINAL [...] II, MD, PHD at 05-Aug-2024 09:13:53 AM [facility] [employer] Normal Not Available Comment on above: Order Comment: US OB TRANSVAGINAL No LMP recorded. [facility] PREG QUANT HCGon 025 HCG QUANTITATIVE 82753 mIU/mL [facility] Comment on above: 5-50 0.2-1 WEEK 50-500 1-2 WEEKS 100-5,000 2-3 WEEKS 500-10,000 3-4 WEEKS 1,000-50,000 4-5 WEEKS 10,000-100,000 5-6 WEEKS 15,000-200,000 6-8 WEEKS 10,000-100,000 2-3 MONTHS [facility] PREG QUANT HCGon 025 HCG QUANTITATIVE 15804 mIU/mL [facility] Comment on above: 5-50 0.2-1 WEEK 50-500 1-2 WEEKS 100-5,000 2-3 WEEKS 500-10,000 3-4 WEEKS 1,000-50,000 4-5 WEEKS 10,000-100,000 5-6 WEEKS 15,000-200,000 6-8 WEEKS 10,000-100,000 2-[address] [facility] [facility] Urinalysis macro (dipstick) panel (U)on 07-15-2023 Bilirubin, UA Negative Negative - 4(70) +++ mg/dL [facility] Blood, UA Negative Negative - 50 Chuy/mcL [facility] Clarity, UA Clear [facility] Color, UA Yellow [facility] Glucose, UA Negative Negative - 2000(110) ++++ mg/dL [facility] Interpretation and review of laboratory results Normal [facility] Ketones, UA Positive Negative - 160(16) ++++ mg/dL [facility] Leukocytes, UA Negative Negative - 500+++ Sadi/mcL [facility] Nitrite, UA Negative Negative - Positive [facility] pH, UA 6.5 5 - 9 [facility] Protein, UA Negative Negative - 1999(20) ++++ mg/dL [facility] Spec Grav, UA 1.025 1 - 1.03 [facility] Urobilinogen, UA 0.2 0.2 - 12 mg/dL [facility] C-Reactive Proteinon 022 CRP [Mass/Vol] mg/L 0 - 5 mg/L [facility] CBC with Auto Differentialon 12-16-2021 Absolute Eos # 0.09 [facility] Absolute Immature Granulocyte 0.04 [facility] Absolute Lymph # 2.98 [facility] Absolute [place] # 0.51 [facility] RS [facility] Basophils (Bld) [#/Vol] 0.04 10*3/uL [facility] Basophils/100 WBC (Bld) 0 % 0 - 2 % [facility] Eosinophils/100 WBC (Bld) 1 % 1 - 4 % [facility] Hematocrit (Bld) [Volume fraction] 39.6 % 36.3 - 47.1 % [facility] Hemoglobin (Bld) [Mass/Vol] 13.1 g/dL 11.9 - 15.1 g/dL [facility] Immature granulocytes/100 WBC (Bld) 0 % 0 [facility] Lymphocytes/100 WBC (Bld) 33 % 24 - 43 % [facility] MCH (RBC) [Entitic mass] 28.2 pg 25.2 - 33.5 pg [facility] MCHC (RBC) [Mass/Vol] 33.1 g/dL 28.4 - 34.8 g/dL [facility] MCV (RBC) [Entitic vol] 85.3 fL 82.6 - 102.9 fL [facility] Monocytes/100 WBC (Bld) 6 % 3 - 12 % [facility] NRBC Automated 0.0 0.0 per 100 WBC [facility] Platelet distribution width (Bld) [Ratio] 12.0 % 11.8 - 14.4 % [facility] Platelet mean volume (Bld) [Entitic vol] 11.1 fL 8.1 - 13.5 fL [facility] [employer] Platelets (Bld) [#/Vol] 214 10*3/uL [facility] RBC (Bld) [#/Vol] 4.64 10*6/uL 3.95 - 5.1 1 m/uL [facility] [employer] Segmented neutrophils/100 WBC (Bld) 60 % 36 - 65 % [facility] [employer] Segs Absolute 5.49 [facility] WBC (Bld) [#/Vol] 9.2 10*3/uL [facility] [employer] Rheumatoid Factoron 12-17-19 22 Rheumatoid Factor <10 NINF [facility] [employer] [facility] Sedimentation Rateon 022 Sed Rate 5 [facility] [employer] [facility] [employer] Uric Acidon 12-16-2021 Urate [Mass/Vol] 4.2 mg/dL 2.4 - 5.7 mg/dL [facility] [employer] [facility] Basic Metabolic Panel w/ Ref yossi to MGOrdered By: Donny Hatfield on 10-15-2020 Anion gap [Moles/Vol] 13 mmol/L 9 - 17 mmol/L [facility] Phone: Calcium [Mass/Vol] 9.6 mg/dL 8.6 - 10. 4 mg/dL [facility] Phone: Chloride [Moles/Vol] 105 mmol/L 98 - 10 7 mmol/L [facility] Phone: CO2 [Moles/Vol] 22 mmol/L 20 - 31 mmol/L [facility] Phone: Creatinine [Mass/Vol] 0.62 mg/dL 0.50 - 0.90 mg/dL [facility] Phone: GFR >60 >60 mL/min [employer] Phone: GFR Non- >60 >60 mL/min [employer] Work Phone: Glucose [Mass/Vol] 110 mg/dL High 70 - 99 mg/dL [facility] Phone: Interpretation and review of laboratory results Abnormal [facility] Phone: Potassium [Moles/Vol] 3.5 mmol/L Low 3.7 - 5.3 mmol/L [facility] Phone: Sodium [Moles/Vol] 140 mmol/L 135 - 144 mmol/L [facility] Phone: Urea nitrogen (BldV) [Mass/Vol] 12 mg/dL 6 - 20 mg/dL [facility] Phone: Urea nitrogen/Creatinine (Bld) [Mass ratio] 19 [facility] Phone: [facility] Phone: CBC Auto DifferentialOrdered By: Donny Hatfield on 10-15-2020 Absolute Eos # 0.[address] [facility] Work Phone: Absolute Immature Granulocyte 0.06 [employer] Work Phone: Absolute Lymph # 2.50 [facility] [facility] Work Phone: Absolute [place] # 0.75 [facility] Work Phone: Basophils (Bld) [#/Vol] 0.04 10*3/uL [employer] Work Phone: Basophils/100 WBC (Bld) 0 % 0 - 2 % [facility] Phone: Differential Type NOT REPORTED [facility] Phone: Eosinophils/100 WBC (Bld) 1 % 1 - 4 % [facility] Phone: Hematocrit (Bld) [Volume fraction] 42.1 % 36.3 - 47.1 % [facility] Phone: Hemoglobin.gastrointes tinal spec 1 Ql (Stl) 14.0 g/dL 11.9 - 15.1 g/dL [facility] Phone: Immature granulocytes/100 WBC (Bld) 0 % 0 [facility] Phone: Interpretation and review of laboratory results Abnormal [facility] Phone: Lymphocytes/100 WBC (Bld) 14 % Low 24 - 43 % [facility] Phone: MCH (RBC) [Entitic mass] 28.1 pg 25.2 - 33.5 pg [facility] Phone: MCHC (RBC) [Mass/Vol] 33.3 g/dL 28.4 - 34.8 g/dL [facility] Phone: MCV (RBC) [Entitic vol] 84.4 fL 82.6 - 102.9 fL [facility] Phone: Monocytes/100 WBC (Bld) 4 % 3 - 12 % [facility] Phone: NRBC Automated 0.0 0.0 per 100 WBC [facility] Phone: Platelet distribution width (Bld) [Ratio] 11.9 % 11.8 - 14.4 % [facility] Phone: Platelet Estimate NOT REPORTED [facility] Phone: Platelet mean volume (Bld) [Entitic vol] 10.7 fL 8.1 - 13.5 fL [facility] Phone: Platelets (Bld) [#/Vol] 220 10*3/uL [facility] Phone: RBC (Bld) [#/Vol] 4.99 10*6/uL 3.95 - 5.1 1 m/uL [facility] Phone: RBC (Bld) [#/Vol] NOT REPORTED [facility] Phone: Segmented neutrophils/100 WBC (Bld) 81 % High 36 - 65 % [facility] Phone: Segs Absolute 14.20 High [employer] Work Phone: WBC (Bld) [#/Vol] 17.7 10*3/uL [employer] Work Phone: WBC (Bld) [#/Vol] NOT REPORTED [facility] Phone: C-sam Phone: CT ABDOMEN PELVIS W IV CONTR AST Additional Contrast? NoneOrdered By: Donny Hatfield on 10-15-2020 1. Marked hepatic steatosis. 2. Hepatomegaly. 3. Mild colonic diverticulosis without evidence of diverticulitis. [facility] Phone: EXAMINATION: CT OF T HE ABDOMEN [...] PROVIDED HISTORY: abd pain TECHNOLOGIST PROVIDED HISTORY: [facility] pain Decision Support Exception - unselect [...] subcutaneous soft tissues are unremarkable in appearance. C-sam Phone: Jean Marie, Mhpn Incoming Radiant Results From [employer] - 10/15/2020 1:48 AM EDT EXAMINATION: CT [...] COMPARISON: None. HISTORY: ORDERING SYSTEM PROVIDED HISTORY: [facility] pain TECHNOLOGIST PROVIDED HISTORY: [facility] pain Decision Support Exception - unselect [...] Mild colonic diverticulosis without evidence of diverticulitis. [facility] Phone: C[facility]sam Phone: HCG Qualitative, SerumOrdere d By: Donny Hatfield on 10-15-2020 hCG Qual Negative NEGATIVE [facility] Phone: Comment on above: Specimens with hCG l evels near the threshold of the test (25 mIU/mL) may give a negative or indeterminate result. In such cases, another test should be performed with a new specimen in 48-72 hours. If early is suspected clinically in this setting, correlation with quantitative serum b-hCG level is suggested. [employer] has confirmed the use of plasma for this test. This has not been cleared or approved by the U.S. Food and Drug Administration. The FDA has determined that such clearance is not necessary. [facility] Phone: Hepatic Function PanelOrdere d By: Donny Hatfield on 10-15-2020 Albumin [Mass/Vol] 4.6 g/dL 3.5 - 5.2 g/dL [facility] Phone: Albumin/Globulin [Mass ratio] 1.6 {ratio} [facility] Phone: ALP (Bld) [Catalytic activity/Vol] 59 U/L 35 - 104 U/L [facility] Phone: ALT [Catalytic activity/Vol] 38 U/L High 5 - 33 U/L [facility] Phone: AST [Catalytic activity/Vol] 24 U/L <32 [facility] Phone: Bilirubin [Mass/Vol] 0.48 mg/dL 0.3 - 1 .2 mg/dL [facility] Phone: Bilirubin, Indirect CANNOT BE CALCULATED 0.00 - 1.00 mg/dL [facility] Phone: Bilirubin.indirect [Mass/Vol] mg/dL <0.31 mg/dL [facility] Phone: Free PSA/Total PSA [Mass fraction] 7.4 g/dL 6.4 - 8.3 g/dL [facility] Phone: Globulin NOT REPORTED 1.5 - 3.8 g/dL [facility] Phone: Interpretation and review of laboratory results Abnormal C-sam Phone: Laboratory - Chemistry and C hemistry - challengeOrdered By: Donny Hatfield on 10-15-2020 GFR/1.73 sq M.predicted MDRD (S/P/Bld) [Vol rate/Area] C-[facility] Phone: Comment on above: Average GFR for 20-2 9 years old: 116 mL/min/1.73sq m Chronic Kidney Disease: <60 mL/min/1.73sq m Kidney failure: <15 mL/min/1.73sq m eGFR calculated using average adult body mass. Additional eGFR calculator available at: http://www.[employer]/multiple_crcl_2011.htm Stage 1: Some kidney damage normal GFR Stage 2: Mild kidney damage GFR 60-89 Stage 3: Moderate kidney damage GFR 30-59 Stage 4: Severe kidney damage GFR 15-29 Stage 5: Severe kidney damage GFR <15 ESRD - chronic treatment by dialysis or transplant Lactic Acid, PlasmaOrdered B y: Donny Hatfield on 10-15-2020 Lactate [Moles/Vol] 1.1 mmol/L 0.5 - 2. 2 mmol/L [facility] Phone: Lactic Acid, Whole Blood NOT REPORTED 0.7 - 2.1 mmol/L [facility] Phone: C-sam Phone: LipaseOrdered By: Cuco on 10-15-2020 Lipase [Catalytic activity/Vol] 27 U/L 13 - 60 U/L [facility] Phone: MagnesiumOrdered By: Donny Hatfield on 10-15-2020 Magnesium [Mass/Vol] 1.8 mg/dL 1.6 - 2 .6 mg/dL C[facility] Phone: [facility] Work Phone: Microscopic UrinalysisOrdere d By: Donny Hatfield on 10-15-2020 - [facility] Work Phone: Amorphous, UA NOT REPORTED None [facility] Work Phone: Bacteria, UA 1+ Abnormal None [facility] Work Phone: Casts UA NOT REPORTED /LPF [facility] Work Phone: Crystals, UA NOT REPORTED None /HPF [facility] Work Phone: Epithelial Cells UA 2 TO 5 [facility] Work Phone: Interpretation and review of laboratory results Abnormal [facility] Work Phone: Mucus, UA 1+ Abnormal None [facility] Work Phone: Other Observations UA NOT REPORTED NOT REQ. M [facility] Work Phone: RBC, UA 2 TO 5 [facility] Work Phone: Renal Epithelial, UA NOT REPORTED 0 /HPF [facility] Work Phone: Trichomonas, UA NOT REPORTED None [facility] Work Phone: WBC, UA 0 TO 2 [facility] Work Phone: Yeast, UA NOT REPORTED None [facility] Work Phone: [facility] Work Phone: No Panel InformationOrdered By: Donny Hatfield on 10-15-2020 [facility] Work Phone: Urinalysis Reflex to Culture Ordered By: Donny Hatfield on 10-15-2020 Bilirubin Urine Negative NEGATIVE [facility] Work Phone: Color, UA YELLOW YELLOW [facility] Work Phone: Glucose, Ur Negative NEGATIVE [facility] Work Phone: Interpretation and review of laboratory results Abnormal [facility] [employer] Work Phone: Ketones Ql (U) Negative NEGATIVE [facility] [employer] Work Phone: Leukocyte esterase Test strip Ql (U) Negative NEGATIVE [facility] [employer] Work Phone: Nitrite, Urine Negative NEGATIVE [facility] [employer] Work Phone: pH, UA 5.0 [facility] [employer] Work Phone: Protein, UA Negative NEGATIVE [facility] [employer] Work Phone: Specific [place], UA 1.010 [facility] [employer] Work Phone: Turbidity UA CLEAR CLEAR [facility] [employer] Work Phone: Urinalysis Comments NOT REPORTED [facility] [employer] Work Phone: Urine Hgb 2+ Abnormal NEGATIVE [facility] [employer] Work Phone: Urobilinogen, Urine Normal Normal [facility] [employer] Work Phone: [facility] [employer] Work Phone: Comp Metabolic Profon 2020 (cont.) Normal [facility] Comment on above: Result Comment: Aver age GFR for 20-29 years old: 116 mL/min/1.73sq m Chronic Kidney Disease: <60 mL/min/1.73sq m Kidney failure: <15 mL/min/1.73sq m eGFR calculated using average adult body mass. Additional eGFR calculator available at: http://www.[employer]/multiple_crcl_2011.htm Performed By: #### L IPRF, CDP, CP, TSHX #### [employer] [address] [place] [id number] Biscuit Maker: Chato Aguirre MD Albumin [Mass/Vol] 4.3 g/dL Normal 3.5-5.2 [facility] Comment on above: Performed By: #### L IPRF, CDP, CP, TSHX #### [employer] [address] [place], [place] [id number] Biscuit Maker: Chato Aguirre MD Albumin/Glob Ratio 1.3 Normal 1.0-2.5 [facility] Comment on above: Performed By: #### L IPRF, CDP, CP, TSHX #### [address] [address] Biscuit Maker: Chato Aguirre MD Alkaline Phos 49 U/L Normal 35-104 [facility] Comment on above: Performed By: #### L IPRF, CDP, CP, TSHX #### [address] [address] Biscuit Maker: Chato Aguirre MD ALT [Catalytic activity/Vol] 36 U/L High 5-33 [facility] Comment on above: Performed By: #### L IPRF, CDP, CP, TSHX #### [address] [address] Biscuit Maker: Chato Aguirre MD Anion gap [Moles/Vol] 11 mmol/L Normal 9-17 [facility] Comment on above: Performed By: #### L IPRF, CDP, CP, TSHX #### [address] [address] Biscuit Maker: Chato Aguirre MD AST [Catalytic activity/Vol] 27 U/L Normal <32 [facility] Comment on above: Performed By: #### L IPRF, CDP, CP, TSHX #### [facility] [employer] [address] [place] [address] Biscuit Maker: Chato Aguirre MD Bilirubin [Mass/Vol] 0.34 mg/dL Normal 0.3-1.2 [facility] Comment on above: Performed By: #### L IPRF, CDP, CP, TSHX #### [facility] [employer] [address] [place] [address] Biscuit Maker: Chato Aguirre MD Calcium [Mass/Vol] 9.5 mg/dL Normal 8.6-10.4 [facility] Comment on above: Performed By: #### L IPRF, CDP, CP, TSHX #### [facility] [employer] [address] [place] [address] Biscuit Maker: Chato Aguirre MD Chloride [Moles/Vol] 102 mmol/L Normal 98-107 [facility] Comment on above: Performed By: #### L IPRF, CDP, CP, TSHX #### [facility] [employer] [address] [place] [address] Biscuit Maker: Chato Aguirre MD CO2 [Moles/Vol] 22 mmol/L Normal 20-31 [facility] Comment on above: Performed By: #### L IPRF, CDP, CP, TSHX #### [address] [address] Biscuit Maker: Chato Aguirre MD Creatinine [Mass/Vol] 0.46 mg/dL Low 0.50-0.90 [facility] Comment on above: Performed By: #### L IPRF, CDP, CP, TSHX #### [facility] [employer] [address] [place] [address] Biscuit Maker: Chato Aguirre MD GFR, Amer >60 Normal >60 [place] Comment on above: Performed By: #### L IPRF, CDP, CP, TSHX #### [facility] [employer] [address] [place] [address] Biscuit Maker: Chato Aguirre MD GFR,non Amer >60 Normal >60 [facility] Comment on above: Performed By: #### L IPRF, CDP, CP, TSHX #### [facility] [employer] [address] [place] [address] Biscuit Maker: Chato Aguirre MD Glucose [Mass/Vol] 92 mg/dL Normal 70-99 [facility] Comment on above: Performed By: #### L IPRF, CDP, CP, TSHX #### [facility] [address] [place] [address] Biscuit Maker: Chato Aguirre MD Potassium [Moles/Vol] 4.2 mmol/L Normal 3.7-5.3 [facility] Comment on above: Performed By: #### L IPRF, CDP, CP, TSHX #### [facility] [employer] [address] [place] [address] Biscuit Maker: Chato Aguirre MD Protein [Mass/Vol] 7.5 g/dL Normal 6.4-8.3 [facility] Comment on above: Performed By: #### L IPRF, CDP, CP, TSHX #### [facility] [employer] [address] [place] [address] Biscuit Maker: Chato Aguirre MD Sodium [Moles/Vol] 135 mmol/L Normal 135-144 [facility] Comment on above: Performed By: #### L IPRF, CDP, CP, TSHX #### [facility] [employer] [address] [place] [address] Biscuit Maker: Chato Aguirre MD Urea nitrogen [Mass/Vol] 11 mg/dL Normal 6-20 [facility] Comment on above: Performed By: #### L IPRF, CDP, CP, TSHX #### [facility] [employer] [address] [place] [address] Biscuit Maker: Chato Aguirre MD Lipid Prof, Fastingon 2020 Cholesterol [Mass/Vol] 186 mg/dL Normal <200 [facility] Comment on above: Result Comment: Cholesterol Guidelines: <200 Desirable 200-240 Borderline >240 Undesirable Performed By: #### L IPRF, CDP, CP, TSHX #### [facility] [employer] [address] [place] [address] Biscuit Maker: Chato Aguirre MD Cholesterol in HDL [Mass/Vol] 49 mg/dL Normal >40 [facility] Comment on above: Result Comment: HDL Guidelines: <40 Undesirable 40-59 Borderline >59 Desirable Performed By: #### L IPRF, CDP, CP, TSHX #### [employer] [address] [place] [address] Biscuit Maker: Chato Aguirre MD Cholesterol in LDL [Mass/Vol] 102 mg/dL Normal 0-130 [facility] Comment on above: Result Comment: LDL Guidelines: <100 Desirable 100-129 Near to/above Desirable 130-159 Borderline >159 Undesirable Direct (measured) LDL and calculated LDL are not interchangeable tests. Performed By: #### L IPRF, CDP, CP, TSHX #### [facility] [address] [place] [address] Biscuit Maker: Chato Aguirre MD Cholesterol.total/Chol esterol in HDL [Mass ratio] 3.8 {ratio} Normal <5 [facility] Comment on above: Performed By: #### L IPRF, CDP, CP, TSHX #### [employer] [address] [place] [address] Biscuit Maker: Chato Aguirre MD Triglyceride,Fasting 173 mg/dL High <150 [facility] Comment on above: Result Comment: Triglyceride Guidelines: <150 Desirable 150-199 Borderline 200-499 High >499 Very high Based on AHA Guidelines for fasting triglyceride, February 2012. Performed By: #### L IPRF, CDP, CP, TSHX #### [employer] [address] [place] [address] Biscuit Maker: Chato Aguirre MD TSH w/reflex to FT4on 2020 TSH Qn 3.38 m[IU]/L Normal 0.30-5.00 [facility] Comment on above: Performed By: #### L IPRF, CDP, CP, TSHX #### [employer] [address] [place] [address] [phone] Biscuit Maker: Chato Aguirre MD CBC Auto DifferentialOrdered By: Miguel Holley on 09-23-2020 Absolute Eos # 0.[address] [employer] [facility] Work Phone: Absolute Immature Granulocyte <0.03 [employer] Work Phone: Absolute Lymph # 2.71 [employer] [facility] Work Phone: Absolute [place] # 0.48 [employer] [facility] Work Phone: Basophils (Bld) [#/Vol] 0.05 10*3/uL [employer] Work Phone: Basophils/100 WBC (Bld) 1 % 0 - 2 % [employer] Phone: Differential Type NOT REPORTED [employer] Phone: Eosinophils/100 WBC (Bld) 2 % 1 - 4 % [employer] Phone: Hematocrit (Bld) [Volume fraction] 42.9 % 36.3 - 47.1 % [facility] Phone: Hemoglobin.gastrointes tinal spec 1 Ql (Stl) 13.5 g/dL 11.9 - 15.1 g/dL [facility] Phone: Immature granulocytes/100 WBC (Bld) 0 % 0 [facility] Phone: Lymphocytes/100 WBC (Bld) 30 % 24 - 43 % [facility] Phone: MCH (RBC) [Entitic mass] 27.6 pg 25.2 - 33.5 pg [facility] Phone: MCHC (RBC) [Mass/Vol] 31.5 g/dL 28.4 - 34.8 g/dL [facility] Phone: MCV (RBC) [Entitic vol] 87.6 fL 82.6 - 102.9 fL [facility] Phone: Monocytes/100 WBC (Bld) 5 % 3 - 12 % [facility] Phone: NRBC Automated 0.0 0.0 per 100 WBC [facility] Phone: Platelet distribution width (Bld) [Ratio] 12.4 % 11.8 - 14.4 % [facility] Phone: Platelet Estimate NOT REPORTED [facility] Phone: Platelet mean volume (Bld) [Entitic vol] 11.6 fL 8.1 - 13.5 fL [facility] Phone: Platelets (Bld) [#/Vol] 246 10*3/uL [facility] Phone: RBC (Bld) [#/Vol] 4.90 10*6/uL 3.95 - 5.1 1 m/uL [facility] Phone: RBC (Bld) [#/Vol] NOT REPORTED [facility] Phone: Segmented neutrophils/100 WBC (Bld) 62 % 36 - 65 % [facility] Phone: Segs Absolute 5.79 [employer] Work Phone: WBC (Bld) [#/Vol] 9.2 10*3/uL [facility] Phone: WBC (Bld) [#/Vol] NOT REPORTED [facility] Phone: CBC with Diffon 09-23-2020 Abs. Basophil 0.05 k/uL Normal 0.00-0.20 [facility] Comment on above: Performed By: #### L IPRF, CDP, CP, TSHX #### [employer] [address] [place] [address] Biscuit Maker: Chato Aguirre MD Abs.Imm.Granulocyte <0.03 Normal 0.00-0.30 [facility] Comment on above: Performed By: #### L IPRF, CDP, CP, TSHX #### [employer] [address] [place] [address] Biscuit Maker: Chato Aguirre MD Abs.Neutrophil (Seg) 5.79 k/uL Normal 1.50-8.10 [facility] Comment on above: Performed By: #### L IPRF, CDP, CP, TSHX #### [facility] [employer] [address] [place] [address] Biscuit Maker: Chato Aguirre MD Basophils/100 WBC (Bld) 1 % Normal 0-2 [facility] Comment on above: Performed By: #### L IPRF, CDP, CP, TSHX #### [facility] [employer] [address] [place] [address] Biscuit Maker: Chato Aguirre MD Eosinophils (Bld) [#/Vol] 0.14 10*3/uL Normal 0.00-0.44 [facility] Comment on above: Performed By: #### L IPRF, CDP, CP, TSHX #### [facility] [employer] [address] [place] [address] Biscuit Maker: Chato Aguirre MD Eosinophils/100 WBC (Bld) 2 % Normal 1-4 [facility] Comment on above: Performed By: #### L IPRF, CDP, CP, TSHX #### [facility] [employer] [address] [place] [address] Biscuit Maker: Chato Aguirre MD Erythrocyte distribution width (RBC) [Ratio] 12.4 % Normal 11.8-14.4 [facility] Comment on above: Performed By: #### L IPRF, CDP, CP, TSHX #### [facility] [employer] [address] [place] [address] Biscuit Maker: Chato Aguirre MD Hematocrit (Bld) [Volume fraction] 42.9 % Normal 36.3-47.1 [facility] Comment on above: Performed By: #### L IPRF, CDP, CP, TSHX #### [address] [address] Biscuit Maker: Chato Aguirre MD Hemoglobin (Bld) [Mass/Vol] 13.5 g/dL Normal 11.9-15.1 [facility] Comment on above: Performed By: #### L IPRF, CDP, CP, TSHX #### [address] [address] Biscuit Maker: Chato Aguirre MD Immature granulocytes/100 WBC (Bld) 0 % Normal 0 [facility] Comment on above: Performed By: #### L IPRF, CDP, CP, TSHX #### [address] [address] Biscuit Maker: Chato Aguirre MD Lymphocytes (Bld) [#/Vol] 2.71 10*3/uL Normal 1.10-3.70 [facility] Comment on above: Performed By: #### L IPRF, CDP, CP, TSHX #### [address] [address] Biscuit Maker: Chato Aguirre MD Lymphocytes/100 WBC (Bld) 30 % Normal 24-43 [facility] Comment on above: Performed By: #### L IPRF, CDP, CP, TSHX #### [place] [address] Biscuit Maker: Chato Aguirre MD MCH (RBC) [Entitic mass] 27.6 pg Normal 25.2-33.5 [facility] Comment on above: Performed By: #### L IPRF, CDP, CP, TSHX #### [address] [address] Biscuit Maker: Chato Aguirre MD MCHC (RBC) [Mass/Vol] 31.5 g/dL Normal 28.4-34.8 [facility] Comment on above: Performed By: #### L IPRF, CDP, CP, TSHX #### [address] [address] Biscuit Maker: Chato Aguirre MD MCV (RBC) [Entitic vol] 87.6 fL Normal 82.6-102.9 [facility] Comment on above: Performed By: #### L IPRF, CDP, CP, TSHX #### [address] [address] Biscuit Maker: Chato Aguirre MD Monocytes (Bld) [#/Vol] 0.48 10*3/uL Normal 0.10-1.20 [facility] Comment on above: Performed By: #### L IPRF, CDP, CP, TSHX #### [place] [address] Biscuit Maker: Chaot Aguirre MD Monocytes/100 WBC (Bld) 5 % Normal 3-12 [facility] Comment on above: Performed By: #### L IPRF, CDP, CP, TSHX #### [place] [address] Biscuit Maker: Chato Aguirre MD Neutrophil (Seg) 62 % Normal 36-65 [place] Comment on above: Performed By: #### L IPRF, CDP, CP, TSHX #### [place] [address] Biscuit Maker: Chato Aguirre MD NRBC Automated 0.0 per 100 WBC Normal 0.0 [facility] Comment on above: Performed By: #### L IPRF, CDP, CP, TSHX #### [address] [address] Biscuit Maker: Chato Aguirre MD Platelet mean volume (Bld) [Entitic vol] 11.6 fL Normal 8.1-13.5 [facility] Comment on above: Performed By: #### L IPRF, CDP, CP, TSHX #### [facility] [address] [place] [address] Biscuit Maker: Chato Aguirre MD Platelets (Bld) [#/Vol] 246 10*3/uL Normal 138-453 [facility] Comment on above: Performed By: #### L IPRF, CDP, CP, TSHX #### [facility] [employer] [address] [place] [address] Biscuit Maker: Chato Aguirre MD RBC (Bld) [#/Vol] 4.90 10*6/uL Normal 3.95-5.11 [facility] Comment on above: Performed By: #### L IPRF, CDP, CP, TSHX #### [facility] [employer] [address] [place] [address] Biscuit Maker: Chato Aguirre MD WBC (Bld) [#/Vol] 9.2 10*3/uL Normal 3.5-11.3 [facility] Comment on above: Performed By: #### L IPRF, CDP, CP, TSHX #### [facility] [employer] [address] [place] [address] Biscuit Maker: Chato Aguirre MD Auto Diff Performed NOT REPORTED Normal [facility] Comment on above: Performed By: #### L IPRF, CDP, CP, TSHX #### [facility] [employer] [address] [place] [address] Biscuit Maker: Chato Aguirre MD Platelet Estimate NOT REPORTED Normal [facility] Comment on above: Performed By: #### L IPRF, CDP, CP, TSHX #### [facility] [employer] [address] [place] [address] Biscuit Maker: Chato Aguirre MD RBC morphology finding Nom (Bld) NOT REPORTED Normal [facility] Comment on above: Performed By: #### L IPRF, CDP, CP, TSHX #### [facility] [address] [place], [place] [phone] Biscuit Maker: Chato Aguirre MD WBC Morphology NOT REPORTED Normal [place] Comment on above: Performed By: #### L IPRF, CDP, CP, TSHX #### [facility] [address] [place], [place] [id number] Biscuit Maker: Chato Aguirre MD Comp Metabolic Profon 2020 BUN/CRE Ratio NOT REPORTED Normal - [facility] Comment on above: Performed By: #### L IPRF, CDP, CP, TSHX #### [facility] [address] [place], [place] [id number] Biscuit Maker: Chato Aguirre MD Staging: NOT REPORTED Normal [facility] Comment on above: Performed By: #### L IPRF, CDP, CP, TSHX #### [facility] [address] [place], [place] [id number] Biscuit Maker: Chato Aguirre MD Comprehensive Metabolic Pane lOrdered By: Miguel Holley on 09-23-2020 Albumin [Mass/Vol] 4.3 g/dL 3.5 - 5.2 g/dL [facility] Phone: Albumin/Globulin [Mass ratio] 1.3 {ratio} [facility] Phone: ALP (Bld) [Catalytic activity/Vol] 49 U/L 35 - 104 U/L [facility] Phone: ALT [Catalytic activity/Vol] 36 U/L High 5 - 33 U/L [facility] Phone: Anion gap [Moles/Vol] 11 mmol/L 9 - 17 mmol/L [facility] Phone: AST [Catalytic activity/Vol] 27 U/L <32 [facility] Phone: Bilirubin [Mass/Vol] 0.34 mg/dL 0.3 - 1 .2 mg/dL [facility] Phone: Calcium [Mass/Vol] 9.5 mg/dL 8.6 - 10. 4 mg/dL [facility] Phone: Chloride [Moles/Vol] 102 mmol/L 98 - 10 7 mmol/L [facility] Phone: CO2 [Moles/Vol] 22 mmol/L 20 - 31 mmol/L [facility] Phone: Creatinine [Mass/Vol] 0.46 mg/dL Low 0.50 - 0.90 mg/dL [facility] Phone: Free PSA/Total PSA [Mass fraction] 7.5 g/dL 6.4 - 8.3 g/dL [facility] Phone: GFR >60 >60 mL/min [employer] Phone: GFR Non- >60 >60 mL/min [facility] Phone: GFR/1.73 sq M.predicted MDRD (S/P/Bld) [Vol rate/Area] [facility] Phone: Comment on above: Average GFR for 20-2 9 years old: 116 mL/min/1.73sq m Chronic Kidney Disease: <60 mL/min/1.73sq m Kidney failure: <15 mL/min/1.73sq m eGFR calculated using average adult body mass. Additional eGFR calculator available at: http://www.[employer]/multiple_crcl_2012.htm GFR/1.73 sq M.predicted MDRD (S/P/Bld) [Vol rate/Area] NOT REPORTED [facility] Phone: Glucose [Mass/Vol] 92 mg/dL 70 - 99 mg/dL [facility] Phone: Potassium [Moles/Vol] 4.2 mmol/L 3.7 - 5.3 mmol/L [facility] Phone: Sodium [Moles/Vol] 135 mmol/L 135 - 144 mmol/L [facility] Work Phone: Urea nitrogen (BldV) [Mass/Vol] 11 mg/dL 6 - 20 mg/dL [facility] Work Phone: Urea nitrogen/Creatinine (Bld) [Mass ratio] NOT REPORTED [facility] [employer] Work Phone: Laboratory - Chemistry and C hemistry - challengeOrdered By: Miguel Holley on 09-23-2020 Albumin [Mass/Vol] 4.3 g/dL (3.5-5.2 ) [facility] Work Phone: Comment on above: Note: Responsible Ob weather observer: [employer] (3003) ALT [Catalytic activity/Vol] 36 U/L High (5-33 ) [facility] Work Phone: Comment on above: Note: Responsible Ob weather observer: [employer] (3003) Anion gap [Moles/Vol] 11 mmol/L (9-17 ) [facility] Work Phone: Comment on above: Note: Responsible Ob weather observer: [employer] (3003) AST [Catalytic activity/Vol] 27 U/L (<32 ) [facility] Work Phone: Comment on above: Note: Responsible Ob weather observer: [employer] (3003) Bilirubin [Mass/Vol] 0.34 mg/dL (0.3-1.2 ) [facility] Work Phone: Comment on above: Note: Responsible Ob weather observer: [employer] (3003) Calcium [Mass/Vol] 9.5 mg/dL (8.6-10.4 ) [facility] Work Phone: Comment on above: Note: Responsible Ob weather observer: [employer] (3003) Chloride [Moles/Vol] 102 mmol/L (98-107 ) [facility] Work Phone: Comment on above: Note: Responsible Ob weather observer: [employer] (3003) Cholesterol [Mass/Vol] 186 mg/dL (<200 ) [facility] Work Phone: Comment on above: Note: Cholesterol Gu idelines:<200 [id number] Borderline>240 UndesirableResponsible Observer: [employer] (3003) Cholesterol.total/Chol esterol in HDL [Mass ratio] 3.8 {ratio} (<5 ) [facility] Work Phone: Comment on above: Note: Responsible Ob weather observer: [employer] (3003) CO2 [Moles/Vol] 22 mmol/L (20-31 ) [facility] Work Phone: Comment on above: Note: Responsible Ob weather observer: [employer] (3003) Creatinine [Mass/Vol] 0.46 mg/dL Low (0.50- 0.90 ) [facility] Work Phone: Comment on above: Note: Responsible Ob weather observer: [employer] (3003) Glucose [Mass/Vol] 92 mg/dL (70-99 ) [facility] Work Phone: Comment on above: Note: Responsible Ob weather observer: [employer] (3003) Magnesium [Mass/Vol] 49 mg/dL (>40 ) [facility] Work Phone: Comment on above: Note: HDL Guidelines :<40 [id number] Borderline>59 DesirableResponsible Observer: [employer] (3003) Magnesium [Mass/Vol] 102 mg/dL (0-130 ) [facility] Work Phone: Comment on above: Note: LDL Guidelines :<100 [id number] Near to/above [id number] Borderline>159 UndesirableDirect (measured) LDL and calculated LDL are not interchangeable tests.Responsible Observer: [employer] (3003) Magnesium [Mass/Vol] 173 mg/dL High (<150 ) [facility] Work Phone: Comment on above: Note: Triglyceride G uidelines:<150 [id number] High>499 Very highBased on AHA Guidelines for fasting triglyceride, February 2012.Responsible Observer: [employer] (3003) Potassium [Moles/Vol] 4.2 mmol/L (3.7-5.3 ) [facility] Work Phone: Comment on above: Note: Responsible Ob weather observer: [employer] (3003) Protein [Mass/Vol] 7.5 g/dL (6.4-8.3 ) [facility] Work Phone: Comment on above: Note: Responsible Ob weather observer: [employer] (3003) Sodium [Moles/Vol] 135 mmol/L (135-144 ) [facility] Work Phone: Comment on above: Note: Responsible Ob weather observer: [employer] (3003) Urea nitrogen [Mass/Vol] 11 mg/dL (6-20 ) [facility] Work Phone: Comment on above: Note: Responsible Ob weather observer: [employer] (3003) Laboratory - Hematology and Cell countsOrdered By: Miguel Holley on 09-23-2020 Basophils/100 WBC (Bld) 1 % (0-2 ) [facility] Work Phone: Comment on above: Note: Responsible Ob weather observer: XNV [employer] (3018) Eosinophils (Bld) [#/Vol] 0.14 10*3/uL (0.00-0.44 ) [facility] Work Phone: Comment on above: Note: Responsible Ob weather observer: [employer] (3018) Eosinophils/100 WBC (Bld) 2 % (1-4 ) [facility] Work Phone: Comment on above: Note: Responsible Ob weather observer: [employer] (3018) Erythrocyte distribution width (RBC) [Ratio] 12.4 % (11.8-14.4 ) [facility] Work Phone: Comment on above: Note: Responsible Ob weather observer: [employer] (3018) Hematocrit (Bld) [Volume fraction] 42.9 % (36.3-47.1 ) [facility] Work Phone: Comment on above: Note: Responsible Ob weather observer: [employer] (3018) Hemoglobin (Bld) [Mass/Vol] 13.5 g/dL (11.9-15.1 ) [facility] Work Phone: Comment on above: Note: Responsible Ob weather observer: [employer] (3018) Immature granulocytes/100 WBC (Bld) 0 % (0 ) [facility] Work Phone: Comment on above: Note: Responsible Ob weather observer: [employer] (3018) Lymphocytes (Bld) [#/Vol] 2.71 10*3/uL (1.10-3.70 ) [facility] Work Phone: Comment on above: Note: Responsible Ob weather observer: [employer] (3018) Lymphocytes/100 WBC (Bld) 30 % (24-43 ) [facility] Work Phone: Comment on above: Note: Responsible Ob weather observer: [employer] (3018) MCH (RBC) [Entitic mass] 27.6 pg (25.2-33.5 ) [facility] Work Phone: Comment on above: Note: Responsible Ob weather observer: [employer] (3018) MCHC (RBC) [Mass/Vol] 31.5 g/dL (28.4- 34.8 ) [facility] Work Phone: Comment on above: Note: Responsible Ob weather observer: [employer] (3018) MCV (RBC) [Entitic vol] 87.6 fL (82.6-102.9 ) [facility] Work Phone: Comment on above: Note: Responsible Ob weather observer: [employer] (3018) Monocytes (Bld) [#/Vol] 0.48 10*3/uL (0.10-1.20 ) [facility] Work Phone: Comment on above: Note: Responsible Ob weather observer: [employer] (3018) Monocytes/100 WBC (Bld) 5 % (3-12 ) [facility] Work Phone: Comment on above: Note: Responsible Ob weather observer: [employer] (3018) Platelet mean volume (Bld) [Entitic vol] 11.6 fL (8.1-13.5 ) [facility] Work Phone: Comment on above: Note: Responsible Ob weather observer: [employer] (3018) Platelets (Bld) [#/Vol] 246 10*3/uL (138-453 ) [facility] Work Phone: Comment on above: Note: Responsible Ob weather observer: [employer] (3018) RBC (Bld) [#/Vol] 4.90 10*6/uL (3.95-5.11 ) [facility] Work Phone: Comment on above: Note: Responsible Ob weather observer: [employer] (3018) RBC morphology finding Nom (Bld) NOT REPORTED [facility] Work Phone: Segmented neutrophils/100 WBC (Bld) 62 % (36-65 ) [facility] Work Phone: Comment on above: Note: Responsible Ob weather observer: [employer] (3018) WBC (Bld) [#/Vol] 9.2 10*3/uL (3.5-11.3 ) [facility] Work Phone: Comment on above: Note: Responsible Ob weather observer: [employer] (3018) Lipid Prof, Fastingon 2020 Cholesterol,VLDL NOT REPORTED Normal 06-29 [facility] Comment on above: Performed By: #### L IPRF, CDP, CP, TSHX #### [employer] [address] [place] [address] Biscuit Maker: Chato Aguirre MD Lipid, FastingOrdered By: Zandra Holley on 09-23-2020 Cholesterol [Mass/Vol] 186 mg/dL <200 [employer] Phone: Comment on above: Cholesterol Guidelines: <200 Desirable 200-240 Borderline >240 Undesirable Cholesterol in HDL [Mass/Vol] 49 mg/dL >40 [facility] Phone: Comment on above: HDL Guidelines: <40 Undesirable 40-59 Borderline >59 Desirable Cholesterol in LDL [Mass/Vol] 102 mg/dL 0 - 130 mg/dL [facility] Phone: Comment on above: LDL Guidelines: <100 Desirable 100-129 Near to/above Desirable 130-159 Borderline >159 Undesirable Direct (measured) LDL and calculated LDL are not interchangeable tests. Cholesterol in VLDL [Mass/Vol] NOT REPORTED High 1 - 30 mg/dL [facility] Phone: Cholesterol.total/Chol esterol in HDL [Mass ratio] 3.8 {ratio} <5 [facility] Phone: Triglyceride, Fasting 173 mg/dL High <150 [facility] Phone: Comment on above: Triglyceride Guidelines: <150 Desirable 150-199 Borderline 200-499 High >499 Very high Based on AHA Guidelines for fasting triglyceride, February 2012. No Panel InformationOrdered By: Miguel Holley on 09-23-2020 Interpretation and review of laboratory results Abnormal [facility] Phone: (cont.) See Note [facility] Work Phone: Comment on above: Note: Average GFR fo r 20-29 years old:116 mL/min/1.73sq mChronic Kidney Disease:<60 mL/min/1.73sq mKidney failure:<15 mL/min/1.73sq meGFR calculated using average adult body mass. Additional eGFR calculatoravailable at:http://www.[employer]/multiple_crcl_2012.htmResponsible Observer: CEEV AUTOFILE (3003) Abs. Basophil 0.05 k/uL (0.00-0.20 ) [facility] Work Phone: Comment on above: Note: Responsible Ob weather observer: XNV AUTOFILE (3018) Abs.Imm.Granulocyte <0.03 k/uL (0.00-0. 30 ) [facility] Work Phone: Comment on above: Note: Responsible Ob weather observer: XNV AUTOFILE (3018) Abs.Neutrophil (Seg) 5.79 k/uL (1.50-8 .10 ) [facility] Work Phone: Comment on above: Note: Responsible Ob weather observer: XNV AUTOFILE (3018) Albumin/Glob Ratio 1.3 (1.0-2.5 ) [facility] Work Phone: Comment on above: Note: Responsible Ob weather observer: CEEV AUTOFILE (3003) Alkaline Phos 49 U/L (35-104 ) [facility] Work Phone: Comment on above: Note: Responsible Ob weather observer: CEEV AUTOFILE (3003) Auto Diff Performed NOT REPORTED [facility] Work Phone: BUN/CRE Ratio NOT REPORTED (9-20 ) [facility] Work Phone: Cholesterol,VLDL NOT REPORTED mg/dL (1-30 ) [facility] Work Phone: GFR, Amer >60 mL/min (>60 ) [facility] Work Phone: Comment on above: Note: Responsible Ob weather observer: CEEV AUTOFILE (3003) GFR,non Amer >60 mL/min (>60 ) [facility] Work Phone: Comment on above: Note: Responsible Ob weather observer: CEEV AUTOFILE (3003) NRBC Automated 0.0 per_100_WBC (0.0 ) [facility] Work Phone: Comment on above: Note: Responsible Ob weather observer: XNV AUTOFILE ([id number]) Platelet Estimate NOT REPORTED [facility] Work Phone: Reported Physicians See Note [facility] Work Phone: Comment on above: Note: Reported Physi cians:Ordering: Cotton, AimeeAttending: Cotton, AimeeReferring: Cotton, Miguel Staging: NOT REPORTED [facility] Work Phone: Thyroid Stim. Horm. 3.38 mIU/L (0.30-5. 00 ) [facility] Work Phone: Comment on above: Note: Responsible Ob weather observer: CEEV AUTOFILE (2160) WBC Morphology NOT REPORTED [facility] Work Phone: TSH with ReflexOrdered By: Kamryn Holley on 09-23-2020 TSH Qn 3.38 m[IU]/L [facility] Work Phone: APTTon 04-08-2020 aPTT Coag (Bld) [Time] 25.2 s [place], [place] Comment on above: IV Heparin Therapy Range: 62.0-94.0 Brain Natriuretic Peptideon 04-08-2020 Natriuretic peptide B (Bld) [Mass/Vol] pg/mL <300 pg/mL [place], [place] Comment on above: Pro-BNP results ayse ot be compared to BNP results. Natriuretic peptide B (Bld) [Mass/Vol] Pro-BNP Reference Range: [place], [place] Comment on above: Rule Out: <300 [place] Zone: Age <50 300-450 Age 50-75 300-900 Age >75 300-1800 Usually represents mild to moderate HF but other cardiopulmonary causes cannot be ruled out. Rule In: Age <50 >450 Age 50-75 >900 Age >75 >1800 CBCon 04-08-2020 Erythrocyte distribution width (RBC) [Ratio] 11.9 % 11.8 - 14.4 % [place] Hematocrit (Bld) [Volume fraction] 37.9 % 36.3 - 47.1 % [place] Hemoglobin (Bld) [Mass/Vol] 12.5 g/dL 11.9 - 15.1 g/dL [place] MCH (RBC) [Entitic mass] 27.8 pg 25.2 - 33.5 pg [place] MCHC (RBC) [Mass/Vol] 33.0 g/dL 28.4 - 34.8 g/dL [place] MCV (RBC) [Entitic vol] 84.2 fL 82.6 - 102.9 fL [place] Platelet mean volume (Bld) [Entitic vol] 10.9 fL 8.1 - 13.5 fL [place] Platelets (Bld) [#/Vol] 184 10*3/uL [place] RBC (Bld) [#/Vol] 4.50 10*6/uL 3.95 - 5.1 1 m/uL [place] WBC (Bld) [#/Vol] 7.8 10*3/uL [place] WBC (Bld) [#/Vol] 0.0 10*3/uL 0.0 per 10 0 WBC [place] COVID-19on 04-08-2020 Interpretation and review of laboratory results Abnormal [place] SARS-CoV-2, Rapid DETECTED Abnormal Not Detected [place] Comment on above: Rapid NAAT: The [...] this assay. Fact sheet for Healthcare Providers: https://www.fda.gov/media/589949/download Fact sheet for Patients: https://www.fda.gov/media/827652/download Methodology: Isothermal Nucleic Acid Amplification Results reported to the appropriate Health Department Source .NASOPHARYNGEAL SWAB [place], [place] CT CHEST PULMONARY EMBOLISM W CONTRASTon 04-08-2020 Unremarkable appeara nce of the chest with no evidence of pulmonary embolism and clear lungs. Incidentally noted hepatic fatty infiltration. [place], [place] EXAMINATION: CTA OF THE CHEST 04/08/2020 [...] No significant osseous or soft tissue abnormality. [place], [place] Jean Marie, Mhpn Incoming Radiant Results From [facility] - 04/08/2020 4:12 PM EST EXAMINATION: CTA [...] clear lungs. Incidentally noted hepatic fatty infiltration. [place], [place] Comprehensive Metabolic Pane fermin 04-08-2020 Albumin [Mass/Vol] 4.1 g/dL 3.5 - 5.2 g/dL [place] Albumin/Globulin [Mass ratio] 1.4 {ratio} [place] ALP [Catalytic activity/Vol] 62 U/L 35 - 104 U/L [place] ALT [Catalytic activity/Vol] 19 U/L 5 - 33 U/L [place] Anion gap [Moles/Vol] 10 mmol/L 9 - 17 mmol/L [place] AST [Catalytic activity/Vol] 20 U/L <32 [place] Bilirubin Ql (U) 0.48 mg/dL 0.3 - 1.2 mg/dL [place] Bun/Cre Ratio 23 High [place] Calcium [Mass/Vol] 8.9 mg/dL 8.6 - 10. 4 mg/dL [place] Chloride [Moles/Vol] 102 mmol/L 98 - 10 7 mmol/L [place] CO2 [Moles/Vol] 23 mmol/L 20 - 31 mmol/L [place] Creatinine [Mass/Vol] 0.47 mg/dL Low 0.5 - 0.9 mg/dL [place] GFR >60 >60 mL/min [place] GFR Non- >60 >60 mL/min [place] Glucose [Mass/Vol] 88 mg/dL 70 - 99 mg/dL [place] Interpretation and review of laboratory results Abnormal [place] Potassium [Moles/Vol] 3.7 mmol/L 3.7 - 5.3 mmol/L [place] Protein [Mass/Vol] 7.1 g/dL 6.4 - 8.3 g/dL [place] Sodium [Moles/Vol] 135 mmol/L 135 - 144 mmol/L [place] Urea nitrogen [Mass/Vol] 11 mg/dL 6 - 20 mg/dL [place] Metabolic Panelon 04-08-2020 GFR/1.73 sq M predicted among non-blacks MDRD (S/P/Bld) [Vol rate/Area] [place], [place] Comment on above: Stage 1: Some [...] body mass. Additional eGFR calculator available at: http://www.Toywheel/multiple_crcl_2012.htm Otheron 04-08-2020 SARS-CoV-2 [place], [place] , Urineon 0 Beta HCG ( test) Ql (U) Negative NEGATIVE [place] Comment on above: Specimens with hCG l evels near the threshold of the test (25 mIU/mL) may give a negative or indeterminate result. In such cases, another test should be performed with a new specimen in 48-72 hours. If early is suspected clinically in this setting, correlation with quantitative serum b-hCG level is suggested. [employer] has confirmed the use of plasma for this test. This has not been cleared or approved by the U.S. Food and Drug Administration. The FDA has determined that such clearance is not necessary. Protime-INRon 04-08-2020 INR Coag (PPP) [Relative time] 1.0 {INR} [place], [place] Comment on above: Non-therapeutic Range: INR = 0.9-1.2 Therapeutic Range: Moderate Anticoagulant Intensity: INR = 2.0-3.0 High Anticoagulant Intensity: INR = 2.5-3.5 PT Coag (PPP) [Time] 13.2 s [place] Troponinon 04-08-2020 Troponin I.cardiac [Mass/Vol] NOT REPORTED [place] Troponin T.cardiac [Mass/Vol] NOT REPORTED <0.03 ng/mL [place] Troponin, High Sensitivity <6 0 - 14 ng/L [facility] [place] Comment on above: High Sensitivity Troponin values cannot be compared with other Troponin methodologies. Patients with high levels of Biotin oral intake (i.e >5mg/day) may have falsely decreased Troponin levels. Samples collected within 8 hours of biotin intake may require additional information for diagnosis. CBC Auto Differentialon -0 6-2020 Basophils (Bld) [#/Vol] 0.05 10*3/uL [facility] Phone: Basophils/100 WBC (Bld) 1 % 0 - 2 % [facility] Phone: Differential Type NOT REPORTED [facility] Phone: Eosinophils (Bld) [#/Vol] 0.15 10*3/uL [facility] Phone: Eosinophils/100 WBC (Bld) 1 % 1 - 4 % [facility] Phone: Erythrocyte distribution width (RBC) [Ratio] 12.1 % 11.8 - 14.4 % [facility] Phone: Hematocrit (Bld) [Volume fraction] 44.5 % 36.3 - 47.1 % [facility] Phone: Hemoglobin (Bld) [Mass/Vol] 14.0 g/dL 11.9 - 15.1 g/dL [facility] Phone: Immature granulocytes (Bld) [#/Vol] 0 % 0 [facility] Phone: Immature granulocytes (Bld) [#/Vol] 10*3/uL [facility] Phone: Interpretation and review of laboratory results Abnormal [facility] Phone: Lymphocytes (Bld) [#/Vol] 2.83 10*3/uL [facility] Phone: Lymphocytes/100 WBC (Bld) 27 % 24 - 43 % [facility] Phone: MCH (RBC) [Entitic mass] 27.6 pg 25.2 - 33.5 pg [facility] Phone: MCHC (RBC) [Mass/Vol] 31.5 g/dL 28.4 - 34.8 g/dL [facility] Phone: MCV (RBC) [Entitic vol] 87.6 fL 82.6 - 102.9 fL [facility] Phone: Monocytes (Bld) [#/Vol] 0.52 10*3/uL [facility] Phone: Monocytes/100 WBC (Bld) 5 % 3 - 12 % [facility] Phone: Platelet mean volume (Bld) [Entitic vol] 12.0 fL 8.1 - 13.5 fL [facility] Phone: Platelets (Bld) [#/Vol] NOT REPORTED [facility] Phone: Platelets (Bld) [#/Vol] 241 10*3/uL [facility] Phone: RBC (Bld) [#/Vol] 5.08 10*6/uL 3.95 - 5.1 1 m/uL [facility] Phone: RBC morphology finding Nom (Bld) NOT REPORTED [facility] Phone: Segmented neutrophils/100 WBC (Bld) 66 % High 36 - 65 % [employer] Work Phone: Segs Absolute 7.04 [employer] Work Phone: WBC (Bld) [#/Vol] 10.6 10*3/uL [facility] Phone: WBC (Bld) [#/Vol] 0.0 10*3/uL 0.0 per 10 0 WBC [facility] Phone: WBC Morphology NOT REPORTED [facility] Work Phone: Cardiacon 07-06-2019 Cholesterol [Mass/Vol] 198 mg/dL (<200) [facility] Work Phone: Comment on above: Note: Cholesterol Gu idelines:<200 [id number] Borderline>240 UndesirableResponsible Observer: CCEV AUTOFILE ([id number]) Comprehensive Metabolic Pane fermin 07-06-2019 Albumin [Mass/Vol] 4.5 g/dL 3.5 - 5.2 g/dL [facility] Phone: Albumin/Globulin [Mass ratio] 1.4 {ratio} [facility] Phone: ALP [Catalytic activity/Vol] 62 U/L 35 - 104 U/L [facility] Phone: ALT [Catalytic activity/Vol] 39 U/L High 5 - 33 U/L [facility] Phone: Anion gap [Moles/Vol] 16 mmol/L 9 - 17 mmol/L [facility] Phone: AST [Catalytic activity/Vol] 32 U/L High <32 [facility] Phone: Bilirubin Ql (U) 0.25 mg/dL Low 0.3 - 1.2 mg/dL [facility] Phone: Bun/Cre Ratio NOT REPORTED [facility] Work Phone: Calcium [Mass/Vol] 9.8 mg/dL 8.6 - 10. 4 mg/dL [facility] Phone: Chloride [Moles/Vol] 103 mmol/L 98 - 10 7 mmol/L [facility] Phone: CO2 [Moles/Vol] 19 mmol/L Low 20 - 31 mmol/L [facility] Phone: Creatinine [Mass/Vol] 0.51 mg/dL 0.5 - 0.9 mg/dL [facility] Phone: GFR >60 >60 mL/min [employer] Work Phone: GFR Non- >60 >60 mL/min [facility] Phone: GFR/1.73 sq M predicted among non-blacks MDRD (S/P/Bld) [Vol rate/Area] [facility] Phone: Comment on above: Average GFR for 20-2 9 years old: 116 mL/min/1.73sq m Chronic Kidney Disease: <60 mL/min/1.73sq m Kidney failure: <15 mL/min/1.73sq m eGFR calculated using average adult body mass. Additional eGFR calculator available at: http://www.Toywheel/[employer]_crcl_2012.htm GFR/1.73 sq M predicted among non-blacks MDRD (S/P/Bld) [Vol rate/Area] NOT REPORTED [facility] Phone: Glucose [Mass/Vol] 89 mg/dL 70 - 99 mg/dL [facility] Phone: Interpretation and review of laboratory results Abnormal [facility] Phone: Potassium [Moles/Vol] 4.6 mmol/L 3.7 - 5.3 mmol/L [facility] Phone: Protein [Mass/Vol] 7.8 g/dL 6.4 - 8.3 g/dL [facility] Phone: Sodium [Moles/Vol] 138 mmol/L 135 - 144 mmol/L [facility] Phone: Urea nitrogen [Mass/Vol] 14 mg/dL 6 - 20 mg/dL [facility] Phone: Hematologyon 07-06-2019 Basophils/100 WBC (Bld) 1 % (0-2) [facility] Work Phone: Comment on above: Note: Responsible Ob weather observer: XNV AUTOFILE ([id number]) Eosinophils (Bld) [#/Vol] 0.15 10*3/uL (0.00-0.44) [facility] Work Phone: Comment on above: Note: Responsible Ob weather observer: XNV AUTOFILE ([id number]) Eosinophils/100 WBC (Bld) 1 % (1-4) [facility] Work Phone: Comment on above: Note: Responsible Ob weather observer: XNV AUTOFILE (3018) Hematocrit (Bld) [Volume fraction] 44.5 % (36.3-47.1) [facility] Work Phone: Comment on above: Note: Responsible Ob weather observer: XNV AUTOFILE (3018) Hemoglobin (Bld) [Mass/Vol] 14.0 g/dL (11.9-15.1) [facility] Work Phone: Comment on above: Note: Responsible Ob weather observer: XNV AUTOFILE (3018) Lymphocytes (Bld) [#/Vol] 2.83 10*3/uL (1.10-3.70) [facility] Work Phone: Comment on above: Note: Responsible Ob weather observer: XNV AUTOFILE (3018) Lymphocytes/100 WBC (Bld) 27 % (24-43) [facility] Work Phone: Comment on above: Note: Responsible Ob weather observer: XNV AUTOFILE (3018) MCH (RBC) [Entitic mass] 27.6 pg (25.2-33.5) [facility] Work Phone: Comment on above: Note: Responsible Ob weather observer: XNV AUTOFILE (3018) MCV (RBC) [Entitic vol] 87.6 fL (82.6-102.9 ) [facility] Work Phone: Comment on above: Note: Responsible Ob weather observer: XNV AUTOFILE (3018) Monocytes (Bld) [#/Vol] 0.52 10*3/uL (0.10-1.20) [facility] Work Phone: Comment on above: Note: Responsible Ob weather observer: XNV AUTOFILE (3018) Monocytes/100 WBC (Bld) 5 % (3-12) [facility] Work Phone: Comment on above: Note: Responsible Ob weather observer: XNV AUTOFILE (3018) Platelets (Bld) [#/Vol] NOT REPORTED [facility] Work Phone: [phone] Platelets (Bld) [#/Vol] 241 10*3/uL (138-453) [facility] Work Phone: Comment on above: Note: Responsible Ob weather observer: XNV AUTOFILE (3018) RBC (Bld) [#/Vol] 5.08 10*6/uL (3.95-5.11) [facility] Work Phone: Comment on above: Note: Responsible Ob weather observer: XNV AUTOFILE (8) RBC morphology finding Nom (Bld) NOT REPORTED [facility] Work Phone: WBC (Bld) [#/Vol] 0.0 per_100_WBC (0.0) [facility] Work Phone: Comment on above: Note: Responsible Ob weather observer: XNV AUTOFILE (3018) WBC (Bld) [#/Vol] 10.6 10*3/uL (3.5-11.3) [facility] Work Phone: Comment on above: Note: Responsible Ob weather observer: XNV AUTOFILE (8) Lipid, Fastingon 07-06-2019 Cholesterol [Mass/Vol] 198 mg/dL <[address] [facility] [employer] Work Phone: Comment on above: Cholesterol Guidelines: <200 Desirable 200-240 Borderline >240 Undesirable Cholesterol in HDL [Mass/Vol] 53 mg/dL >40 [facility] Phone: Comment on above: HDL Guidelines: <40 Undesirable 40-59 Borderline >59 Desirable Cholesterol in LDL [Mass/Vol] 118 mg/dL 0 - 130 mg/dL [facility] Phone: Comment on above: LDL Guidelines: <100 Desirable 100-129 Near to/above Desirable 130-159 Borderline >159 Undesirable Direct (measured) LDL and calculated LDL are not interchangeable tests. Cholesterol in VLDL [Mass/Vol] NOT REPORTED 1 - 30 mg/dL [facility] [employer] Work Phone: Cholesterol.total/Chol esterol in HDL [Mass ratio] 3.7 {ratio} <5 [facility] [employer] Work Phone: Triglyceride, Fasting 135 mg/dL <150 [facility] [employer] Work Phone: Comment on above: Triglyceride Guidelines: <150 Desirable 150-199 Borderline 200-499 High >499 Very high Based on AHA Guidelines for fasting triglyceride, February 2012. Metabolic Panelon 07-06-2019 Albumin [Mass/Vol] 4.5 g/dL (3.5-5.2) [facility] Work Phone: Comment on above: Note: Responsible Ob weather observer: CCEV AUTOFILE (3002) ALT [Catalytic activity/Vol] 39 U/L High (5-33) [facility] Work Phone: Comment on above: Note: Responsible Ob weather observer: CCEV AUTOFILE (3002) Anion gap [Moles/Vol] 16 mmol/L (9-17) [facility] Work Phone: Comment on above: Note: Responsible Ob weather observer: CCEV AUTOFILE (3002) AST [Catalytic activity/Vol] 32 U/L High (<32) [facility] Work Phone: Comment on above: Note: Responsible Ob weather observer: CCEV AUTOFILE (3002) Bilirubin [Mass/Vol] 0.25 mg/dL Low (0.3-1.2) [facility] Work Phone: Comment on above: Note: Responsible Ob weather observer: CCEV AUTOFILE (3002) Calcium [Mass/Vol] 9.8 mg/dL (8.6-10.4) [facility] Work Phone: Comment on above: Note: Responsible Ob weather observer: CCEV AUTOFILE (3002) Chloride [Moles/Vol] 103 mmol/L (98-107) [facility] Work Phone: Comment on above: Note: Responsible Ob weather observer: CCEV AUTOFILE (3002) CO2 [Moles/Vol] 19 mmol/L Low (20-31) [facility] Work Phone: Comment on above: Note: Responsible Ob weather observer: CCEV AUTOFILE (3002) Creatinine [Mass/Vol] 0.51 mg/dL (0.50-0.90) [facility] Work Phone: Comment on above: Note: Responsible Ob weather observer: CCEV AUTOFILE (3002) Glucose [Mass/Vol] 89 mg/dL (70-99) [facility] Work Phone: Comment on above: Note: Responsible Ob weather observer: CCEV AUTOFILE (3002) Potassium [Moles/Vol] 4.6 mmol/L (3.7-5.3) [facility] Work Phone: Comment on above: Note: Responsible Ob weather observer: CCEV AUTOFILE (3002) Protein [Mass/Vol] 7.8 g/dL (6.4-8.3) [facility] Work Phone: Comment on above: Note: Responsible Ob weather observer: CCEV AUTOFILE (3002) Sodium [Moles/Vol] 138 mmol/L (135-144) [facility] Work Phone: Comment on above: Note: Responsible Ob weather observer: CCEV AUTOFILE (3002) Urea nitrogen [Mass/Vol] 14 mg/dL (6-20) [facility] Work Phone: Comment on above: Note: Responsible Ob weather observer: CCEV AUTOFILE (3002) Otheron 07-06-2019 (cont.) See Note [facility] Work Phone: Comment on above: Note: Average GFR fo r 20-29 years old:116 mL/min/1.73sq mChronic Kidney Disease:<60 mL/min/1.73sq mKidney failure:<15 mL/min/1.73sq meGFR calculated using average adult body mass. Additional eGFR calculatoravailable at:http://www.[employer]/multiple_crcl_2012.htmResponsible Observer: CCEV AUTOFILE (3002) Abs. Basophil 0.05 k/uL (0.00-0.20) [facility] Work Phone: Comment on above: Note: Responsible Ob weather observer: XNV AUTOFILE (3018) Abs.Imm.Granulocyte <0.03 k/uL (0.00-0.30) [facility] Work Phone: Comment on above: Note: Responsible Ob weather observer: XNV AUTOFILE (3018) Abs.Neutrophil (Seg) 7.04 k/uL (1.50-8.10) [facility] Work Phone: Comment on above: Note: Responsible Ob weather observer: XNV AUTOFILE (3018) Albumin/Glob Ratio 1.4 (1.0-2.5) [facility] Work Phone: Comment on above: Note: Responsible Ob weather observer: CCEV AUTOFILE (3002) Alkaline Phos 62 U/L (35-104) [facility] Work Phone: Comment on above: Note: Responsible Ob weather observer: CCEV AUTOFILE (3002) Auto Diff Performed NOT REPORTED [facility] Work Phone: BUN/CRE Ratio NOT REPORTED (9-20) [facility] Work Phone: Cholesterol,HDL 53 mg/dL (>40) [facility] Work Phone: Comment on above: Note: HDL Guidelines :<40 [id number] Borderline>59 DesirableResponsible Observer: CCEV AUTOFILE (3002) Cholesterol,LDL 118 mg/dL (0-130) [facility] Work Phone: Comment on above: Note: LDL Guidelines :<100 [id number] Near to/above Fckcwybte260-635 Borderline>159 UndesirableDirect (measured) LDL and calculated LDL are not interchangeable tests.Responsible Observer: CCEV AUTOFILE (3002) Cholesterol,VLDL NOT REPORTED mg/dL (-30) [facility] Work Phone: [phone] Cholesterol.total/Chol esterol in HDL [Mass ratio] 3.7 {ratio} (<5) [facility] Work Phone: [phone] Comment on above: Note: Responsible Ob weather observer: CCEV AUTOFILE (3002) Erythrocyte distribution width (RBC) [Ratio] 12.1 % (11.8-14.4) [facility] Work Phone: [phone] Comment on above: Note: Responsible Ob weather observer: XNV AUTOFILE (3018) Free Insulin 34 uIU/mL High (3-19) [facility] Work Phone: [phone] Comment on above: Note: Responsible Ob weather observer: LAB [facility] (0603) GFR, Amer >60 mL/min (>60) [facility] Work Phone: [phone] Comment on above: Note: Responsible Ob weather observer: CCEV AUTOFILE (3002) GFR,non Amer >60 mL/min (>60) [facility] Work Phone: [phone] Comment on above: Note: Responsible Ob weather observer: CCEV AUTOFILE (3002) Immature granulocytes (Bld) [#/Vol] 0 % (0) [facility] Work Phone: [phone] Comment on above: Note: Responsible Ob weather observer: XNV AUTOFILE (3018) MCHC (RBC) [Mass/Vol] 31.5 g/dL (28.4-34.8) [facility] Work Phone: [phone] Comment on above: Note: Responsible Ob weather observer: XNV AUTOFILE (3018) Performing Lab: see note [facility] Work Phone: [phone] Comment on above: Note: [facility] [address] [facility] [id number] Note: [facility] [address] [facility] [id number] Platelet mean volume (Bld) [Entitic vol] 12.0 fL (8.1-13.5) [facility] Work Phone: Comment on above: Note: Responsible Ob weather observer: XNV AUTOFILE (3018) Reported Physicians See Note [facility] Work Phone: [phone] Comment on above: Note: Reported Physi cians:Ordering: Allyson Floyd AAttending: Everett CynthiaReferring: Allyson Floyd Segmented neutrophils/100 WBC (Bld) 66 % High (36-65) [facility] Work Phone: [phone] Comment on above: Note: Responsible Ob weather observer: XNV AUTOFILE (3018) Staging: NOT REPORTED [facility] Work Phone: [phone] Thyroid Stim. Horm. 4.15 mIU/L (0.30-5.00) [facility] Work Phone: Comment on above: Note: Responsible Ob weather observer: CCEV AUTOFILE (3002) Thyroxine, Free 1.21 ng/dL (0.93-1.70) [facility] Work Phone: Comment on above: Note: Responsible Ob weather observer: CCEV AUTOFILE (3002) Total Insulin 46 uIU/mL High (3-19) [facility] Work Phone: Comment on above: Note: (NOTE)INTERPRE TIVE INFORMATION: Insulin, Free and TotalThis test reacts on a nearly equimolar basis with the analogsinsulin aspart, insulin glargine, and insulin lispro. Insulindetemir exhibits approximately 50 percent cross-reactivity. Testreactivity with insulin glulisine is negligible (<3 percent). Toconvert to pmol/L, multiply uIU/mL by 6.0. Reference intervalsestablished for fasting specimens.Performed by [facility],[address] [place] [id number] fmj.[place], [place] Xiong MD, Lab. DirectorResponsible Observer: LAB KIERAN (0603) Triglyceride,Fasting 135 mg/dL (<150) [facility] Work Phone: Comment on above: Note: Triglyceride G uidelines:<150 [id number] High>499 Very highBased on AHA Guidelines for fasting triglyceride, February 2012.Responsible Observer: CCEV AUTOFILE (0389) Triiodothyronine T3 150 ng/dL (80-200) [facility] Work Phone: Comment on above: Note: Responsible Ob weather observer: CEEV AUTOFILE (3452) WBC Morphology NOT REPORTED [facility] Work Phone: T3on 07-06-2019 T3, Total 150 ng/dL 80 - 200 ng/dL [employer] Work Phone: T4, Freeon 07-06-2019 Thyroxine, Free 1.21 ng/dL 0.93 - 1.7 ng/dL [employer] Work Phone: TSH without Reflexon 020 TSH Qn 4.15 m[IU]/L [employer] Work Phone: US NON OB TRANSVAGINALon Satisfactory IUD position. RECOMMENDATIONS: No follow-up imaging is recommended. Reference: US BPRs based on Radiology 2010 Jan;256(3):943-54; CT/MR BPRs based on J Am Joanne Radiol 2013;10:675-681. [place] EXAMINATION: PELVIC ULTRASOUND 02/02/2019 TECHNIQUE: Transvaginal [...] Free Fluid: No evidence of free fluid. [facility] Jean Marie[facility] Mhpn Incoming Radiant Results From [facility] - 02/02/2019 8:44 AM EDT EXAMINATION: PELVIC [...] based on J Am Joanne Radiol 2013;10:675-681. [facility] CNOVon 08-21-2018 CNOV Office Visit (WALK[facility] ) ----- ESTEFANIA NAVARRETE ([id number]) 1995 F Date Time Provider Department 08/21/18 12:00 PM MIGUEL TENA (DIANELYS) WALKBR During your visit today, we recorded the following information about you: Temperature Pulse Respiration Blood pressure 97.6 degrees 99/minute 16/minute 136/81 Weight 109.8 kg Miguel Tena APRN.CNP 08/21/2018 12:46 PM Signed Subjective The history is provided by the patient. No waste chopper was used. Cough This is a new [...] is a safe and effective decongestant 3. Nance Nasal [place] may offer relief of nasal and head [...] help open respiratory and sinus passages. - Nance Nasal [place] may offer relief of nasal and head [...] get worse. Thank you for coming to [facility] today. I appreciate your confidence in choosing the [facility] for your medical care. Miguel Tena APRN.RN NICU [facility] [place] [id number] [facility] [address] Referring Provider: SELF [200] Allergies [...] is a safe and effective decongestant 3. Nance Nasal [place] may offer relief of nasal and head [...] help open respiratory and sinus passages. - Nance Nasal [place] may offer relief of nasal and head [...] get worse. [facility] I appreciate your confidence in choosing the [facility] for your medical care. Miguel Tena APRN.DIANELYS [facility] IN [facility] [address] [facility] [address] Prescriptions ordered this encounter Disp Refills [...] by MIGUEL TENA CNP on 08/21/18 Normal [facility] PROGRESSon 08-21-2018 Protein mass conc HNO ID: [id number] Author: Miguel Tena Service: ? Author Type: Nurse Practitioner Type: Progress Notes Filed: 08/21/2018 12:46 PM Note Text: Subjective The history is provided by the patient. No waste chopper was used. Cough This is a new [...] 3-5 days or get worse Miguel Tena APRN.RN NICU [facility] CNCOon 12-22-2017 CNCO Letter Text Erica Velazquez MD [facility] [address] [place] [address] Estefania Navarrete December 22, 2017 Estefania Navarrete [id number] [place] [address] Dear Ms. Navarrete, It was noted that you did not keep your scheduled appointment on 12-22-17. It is important to contact the office in advance if you are unable to keep your appointment so that it is available for other patients. Your medical care is important to us. Please call our office to reschedule an appointment. Sincerely, Erica Velazquez MD [facility] Consult Reporton 01-05-2017 Consult Report Patient: JITENDRA NAVARRETE Age: 21 years Sex: Female : 1995 Associated Diagnoses: None Author: KAREN SHEPARD DPM, RES [facility] Podiatry DepartmentReason for Consult: Active Problems [...] 11:18) 134 (JAN 04 11:18) 134 (JAN 04:18)DBP H 93 (JAN 04 11:18) H 93 (JAN 04:18) H 93 (JAN 04 11:18) Labs (Last [...] discussed with attending physician, Dr. Jaime Shepard [phone] ically Signed by: KAREN SHEPARD DPM, RES on 01/04/2017 13:59 EDTElectronically Co-Signed by: KAREN SHEPARD DPM, RESon 01/04/2017 14:37 EDTElectronically Co-Signed by: Rene REYES DPM 01/05/2017 18:[address] [facility] APTTon 01-04-2017 aPTT 29.9 Second(s) Normal [facility] Comment on above: Result Comment: VERI FIED by Discern Expert. Performed By: #### 1 65525, 9682423, 853163, 906400, 589479, 413409 ####[facility] [address] [place] [address] Medical Director: David Doe MD aPTT 25.9 Second(s) Normal 25.0-36.0 [facility] Comment on above: Performed By: #### 1 93541, 8032060, 506323, 697515, 536264, 102889 ####[facility] [address]dfsw[address]24[address] [place] [address] Medical Director: David Doe MD AUTO DIFFon 01-04-2017 Basophils Auto #/vol (Bld) 0.04 x1000 Normal 0.00-0.20 [facility] Comment on above: Performed By: #### 1 59349, 8498499, 464038, 751535, 831408, 354477 ####[facility] [address]eyvrdcd28[address] [place] [address] Medical Director: David Doe MD Basos % 0.5 % Normal [facility] Comment on above: Performed By: #### 1 10130, 6889721, 836695, 407853, 827308, 370761 ####[facility] [address]wurpr456[address] [place] [address] Medical Director: David Doe MD Eos Count 0.10 x1000 Normal 0.00-0.50 [facility] Comment on above: Performed By: #### 1 81591, 4576555, 371922, 642140, 349717, 910635 ####[facility] [address]ota[address]17 [place] [address] Medical Director: David Doe MD Eosinophils/100 leukocytes 1.0 % Normal [facility] Comment on above: Performed By: #### 1 35455, 9139379, 409391, 625182, 307112, 448086 ####[facility] [address] [place] [address] Medical Director: David Doe MD Lymphocytes 2.84 x1000 Normal 1.20-4.80 [facility] Comment on above: Performed By: #### 1 93230, 1703384, 573525, 841079, 931301, 012277 ####[facility] [address]akmsvg[address] [place] [address] Medical Director: David Doe MD Lymphocytes/100 leukocytes 29.4 % Normal [facility] Comment on above: Performed By: #### 1 19859, 5399287, 974655, 407170, 120400, 546084 ####[facility] [address]az[address] [place] [address] Medical Director: David Doe MD Jefferson Count 0.68 x1000 Normal 0.10-1.00 [facility] Comment on above: Performed By: #### 1 89811, 4871692, 334354, 970144, 077521, 447400 ####[facility] [address]zps[address] [place] [address] Medical Director: David Doe MD Monocytes/100 leukocytes 7.0 % Normal [facility] Comment on above: Performed By: #### 1 62164, 6264451, 986193, 786669, 112520, 435433 ####[facility] [address]upkbob46177 [place] [address] Medical Director: David Doe MD Neutrophils 5.98 x1000 Normal 1.40-8.80 [facility] Comment on above: Performed By: #### 1 51395, 0235155, 133705, 377077, 743852, 949500 ####[facility] [address] [place] [address] Medical Director: David Doe MD Neutrophils/100 WBC Auto (Bld) 62.0 % Normal [facility] Comment on above: Performed By: #### 1 69326, 4250317, 478790, 310747, 528609, 105665 ####[facility] [address] [place] [address] Medical Director: David Doe MD COMPMETAon 01-04-2017 Globulin 4.0 g/dL Normal [facility] Comment on above: Performed By: #### 1 82236, 6173177, 069989, 243606, 378991, 528150 ####[facility] [address] [place] [address] Medical Director: David Doe MD Osmolality 277 mOsm/kg Normal 275-295 [facility] Comment on above: Performed By: #### 1 41870, 7677843, 760831, 781705, 643482, 962248 ####[facility] [address]joibdy[address] [place] [address] Medical Director: David Doe MD eGFR (non-black) mL/min/{1.73_m2} Normal So [facility] Comment on above: Result Comment: Afri can Czech GFR Calc Performed By: #### 1 39715, 2286855, 944036, 092594, 067670, 159708 ####[facility] [address]jo[address] [place] [address] Medical Director: David Doe MD Result Comment: [...] Comment on above: Performed By: #### 1 66932, 9142761, 272991, 605987, 289338, 533665 ####[facility] [address]zuqtgc[address] [place] [address] Medical Director: David Doe MD BUN/Creatinine Ratio 17.6 mg/mg Normal [facility] Comment on above: Performed By: #### 1 42101, 9360368, 248367, 502865, 070197, 294328 ####[facility] [address]ff[address] [place] [address] Medical Director: David Doe MD Alk Phos 61 unit/L Normal 45-117 [facility] Comment on above: Performed By: #### 1 67669, 2433248, 154295, 012459, 033139, 111140 ####[facility] [address] [place] [address] Medical Director: David Doe MD Bilirubin (total) 0.41 mg/dL Normal 0.20-1.00 [facility] Comment on above: Performed By: #### 1 06312, 3874124, 308244, 745970, 810701, 813491 ####[facility] [address] [place] [address] Medical Director: David Doe MD Protein 7.4 g/dL Normal 6.0-8.5 [facility] Comment on above: Performed By: #### 1 17859, 4504033, 799477, 922817, 655763, 269753 ####[facility] [address] [place] [address] Medical Director: David Doe MD GPT 16 unit/L Normal 13-56 [facility] Comment on above: Result Comment: Mariposa puncture should occur prior to sulfasalazine and/or sulfapyridine administration due to the potential for falsely depressed results.Baseline assay values before administration of sulfasalazine and sulfapyridine therapy would not be affected. Performed By: #### 1 94249, 2399771, 493989, 300001, 786718, 100867 ####[facility] Ye[address]vu[address] [place], [place] [address]) [phone] Director: David Doe MD Creatinine 0.7 mg/dL Normal 0.6-1.0 [facility] Comment on above: Performed By: #### 1 24725, 2240709, 102127, 205911, 797771, 621637 ####[facility] [address] [place] [address] 78375440) [phone] Director: David Doe MD GOT 14 unit/L Low 15-37 [facility] Comment on above: Result Comment: Mariposa puncture should occur prior to sulfasalazine and/or sulfapyridine administration due to the potential for falsely depressed results.Baseline assay values before administration of sulfasalazine and sulfapyridine therapy would not be affected. Performed By: #### 1 80810, 8422058, 032074, 910135, 854190, 423282 ####[facility] [address]wfxy[address] [place] [address] Medical Director: David Doe MD Urea nitrogen 13 mg/dL Normal 10-20 [facility] Comment on above: Performed By: #### 1 44443, 6202801, 459095, 097804, 444042, 666518 ####[facility] [address]pnnf[address] [place] [address] Medical Director: David Doe MD Glucose mass conc 86 mg/dL Normal 72-100 [facility] Comment on above: Result Comment: Mariposa puncture should occur prior to sulfasalazine administration due to the potential for falsely depressed results. Venipuncture should occur prior to sulfapyridine administration due to the potential falsely elevated results.Baseline assay values before administration of sulfasalazine and sulfapyridine therapy would not be affected. Performed By: #### 1 89166, 3256007, 250516, 711268, 898456, 145026 ####[facility] [address] [place], [place] [address]) [phone] Director: David Doe MD Albumin 3.4 g/dL Normal 3.4-5.0 [facility] Comment on above: Performed By: #### 1 08202, 0032909, 065551, 205658, 709317, 004942 ####[facility] Vnsfb[address] [place], [place] [address]) [phone] Director: David Doe MD CO2 19.0 mmol/L Low 21.0-32.0 [facility] Comment on above: Performed By: #### 1 78941, 7624601, 091196, 336796, 566120, 828754 ####[facility] X[address]qpu545[address] [place], [place] [address]) [phone] Director: David Doe MD Calcium 9.0 mg/dL Normal 8.5-10.5 [facility] Comment on above: Performed By: #### 1 25754, 5352919, 317614, 046655, 898200, 855811 ####[facility] Nepwrccy46[address] [place], [place] [address]) [phone] Director: David Doe MD Potassium molar conc 3.7 mmol/L Normal 3.5-5.1 [facility] Comment on above: Performed By: #### 1 76777, 1424020, 523712, 550500, 257505, 041017 ####[facility] [address]ft[address] [place] [address] Medical Director: David Doe MD Sodium 139 mmol/L Normal 135-145 [facility] Comment on above: Performed By: #### 1 90504, 9275013, 061116, 646884, 914037, 062751 ####[facility] [address]aph[address] [place] [address] Medical Director: David Doe MD Chloride 108 mmol/L Normal 100-109 [facility] Comment on above: Performed By: #### 1 79418, 0245677, 032748, 500275, 630006, 079022 ####[facility] [address]wk[address] [place] [address] Medical Director: David Doe MD CT LOWER [...] Damir SMITH MD Out: 01/04/17 12:59:[address] [facility] ED Physician Reporton 2016 ED Physician Report Patient: JITENDRA NAVARRETE [facility]: [id number] Age: 21 years Sex: Female : 1995 Associated Diagnoses: Crush injury of right foot Author: NERIQUE MCELROY PA-C Basic Information Time seen: Date [...] No acute fracture or joint dislocation.Signature LineTechnologist: HRD,TANADictated By: HERB AGUILAR MDSigned By: HERB AGUILAR [...] Plan Diagnosis Crush injury of right foot (FNI46-SS S97.81XA, Working, Medical) Plan Condition: Stable. Disposition: ED Discharge to Home was placed.(01/04/2017 13:39:31 EDT, Constant Order). Prescriptions: Launch prescriptions Pharmacy:Percocet 5/325 ([id number]) oral tablet (Prescribe): 1 tabs, ORAL, [id number], PRN: for pain, 24 tabs, 0 Refill(s)doxycycline hyclate 100 mg oral tablet (Prescribe): 100 mg = 1 tabs, ORAL, BID, for 10 days, 20 tabs, 0 Refill(s). Patient was given the following educational materials: Cryotherapy, Lbdl-ae-Wvba, Compartment Syndrome of the Foot, Compartment Syndrome of the Foot, Cryotherapy, Cyks-uy-Xuef. Follow up with: 837 NO FAMILY PHYSICIAN [...] by: Selene GALVAN MD 01/04/2017 14:[address] [facility] ED Progress Noteon 7 ED Progress [...] medicatedsig other at bedsidepodiatry coming to see [id number] ASSUMED CARE OF PT, REPORT RECEIVED FROM [...] a little dizzy after trying crutches. Normal [facility] HCGon 01-04-2017 HCG, Qual <1.[address] [facility] Comment on above: Result Comment: 0 - 3 Negative3 - 50 Inconclusive>50 Positive Performed By: #### 1 63840, 4912766, 743768, 476384, 614699, 567344 ####[facility] [address]az[address] [place], [place] [address]) [phone] Director: David Doe MD HEMOon 01-04-2017 DIFF? No Normal [facility] Comment on above: Performed By: #### 1 86966, 0892294, 901636, 194065, 201596, 395368 ####[facility] Nnceuffk699[address] [place], [place] [address]) [phone] Director: David Doe MD Erythrocyte distribution width Auto Ratio (RBC) 13.3 % Normal 11.5-14.5 [facility] Comment on above: Performed By: #### 1 34330, 4592469, 444567, 924060, 821932, 424343 ####[facility] Juvwrcob[address] [place], [place] [address]) [phone] Director: David Doe MD Erythrocytes (RBC) 4.80 x10 Normal 4.20-5.40 [facility] Comment on above: Result Comment: Note : RBC morphology is normal unless otherwise stated. Evaluation performed only if differential is requested. Performed By: #### 1 96592, 2201441, 478101, 141452, 290416, 473979 ####[facility] Ngy[address] [place], [place] [address]) [phone] Director: David Doe MD Hematocrit (HCT) 39.0 % Normal 36.0-46.0 [facility] Comment on above: Performed By: #### 1 12355, 0273747, 888857, 468495, 222850, 523371 ####[facility] Idalxbtn84749 [place], [place] [address]) [phone] Director: David Doe MD Hemoglobin mass conc (Bld) 13.1 g/dL Normal 12.0-16.0 [facility] Comment on above: Performed By: #### 1 15626, 6024840, 820180, 363806, 883132, 266593 ####[facility] [address]kucfcuv[address] [place], [place] [address]) [phone] Director: David Doe MD MCH 27.3 pg Normal 27.0-34.0 [facility] Comment on above: Performed By: #### 1 73622, 2717003, 415974, 740286, 976927, 633311 ####[facility] Atwpzgdw764[address] [place], [place] [address]) [phone] Director: David Doe MD MCHC mass conc (RBC) 33.6 g/dL Normal 32.0-37.0 [facility] Comment on above: Performed By: #### 1 95500, 0530161, 827838, 031225, 278112, 777341 ####[facility] Vgbtrvhl15[address] [place], [place] [address]) [phone] Director: David Doe MD MCV 81.3 fL Normal 80.0-100.0 [facility] Comment on above: Performed By: #### 1 14675, 5676340, 445818, 232423, 509843, 919937 ####[facility] S[address]qi[address] [place], [place] [address]) [phone] Director: David Doe MD Nucleated RBC% 0 /100WC Normal [facility] Comment on above: Performed By: #### 1 69095, 2953157, 399249, 306617, 355332, 859526 ####[facility] [address] [place] [address] Medical Director: David Doe MD Platelet mean volume (PMV) 9.4 fL Normal 7.4-10.4 [facility] Comment on above: Performed By: #### 1 93487, 2017460, 886353, 256151, 376388, 245046 ####[facility] [address]qigfuww[address] [place] [address] Medical Director: David Doe MD Platelets 238 x1000 Normal 150-450 [facility] Comment on above: Performed By: #### 1 93893, 6035911, 031428, 656699, 088534, 637394 ####[facility] [address]pebcl[address] [place] [address] Medical Director: David Doe MD WBC (Leukocytes) 9.6 10*3/uL Normal [facility] Comment on above: Performed By: #### 1 03340, 0289545, 369576, 376311, 282565, 949834 ####[facility] [address]dlcmrcy35715 [place] [address] Medical Director: David Doe MD WBC (Leukocytes) 9.6 x10 Normal 4.5-11.0 [facility] Comment on above: Performed By: #### 1 62634, 2365541, 927838, 165722, 042761, 055370 ####[facility] [address]unzmf[address] [place] [address] Medical Director: David Doe MD PT INRon 01-04-2017 Protime Median 11.1 Second(s) Normal [facility] Comment on above: Result Comment: VERI FIED by Discern Expert. Performed By: #### 1 72119, 1654552, 315075, 810753, 836968, 597271 ####[facility] [address]qdwio[address] [place] [address] Medical Director: David Doe MD INR Coag RelTime (PPP) 1.0 {INR} Normal So [facility] Comment on above: Result Comment: Norm al reference range for INR on patients not on anticoagulant therapy: 0.9-1.1. General therapeutic range for patients on anticoagulant therapy: 2.0-3.5. Performed By: #### 1 98323, 7963973, 202538, 585936, 100077, 812582 ####[facility] [address] [place] [address] Medical Director: David Doe MD Protime Patient 11.3 Second(s) Normal 9.8-12.7 [facility] Comment on above: Performed By: #### 1 51520, 0227828, 773664, 319960, 402571, 884317 ####[facility] [address]wt[address] [place] [address] Medical Director: David Doe MD XR FOOT [...] swelling. No acute fracture or joint dislocation.Technologist: HRD,KDDictated By: Leann AGUILAR MDgned By: LAUREN RESENDIZ, Jose Alberto Out: 01/04/17 11:49:[address] [facility] Vital Signs Date Time Vital Sign Value Performing Clinician Facility 12-27-2024 10:35-0400 Body mass index (BMI) [Ratio] 42.88 kg/m2 Latasha KULKARNI Work Phone: [facility] 12-27-2024 10:35-0400 Body weight 124.19 kg Latasha KULKARNI Work Phone: [facility] 12-27-2024 10:35-0400 Diastolic blood pressure 74 mm[Hg] Latasha KULKARNI Work Phone: [facility] 12-27-2024 10:35-0400 Systolic blood pressure 122 mm[Hg] Latasha KULKARNI Work Phone: [facility] 12-13-2024 13:51-0400 Body mass index (BMI) [Ratio] 43.07 kg/m2 Aditya Billy DO Work Phone: [facility] 12-13-2024 13:51-0400 Body weight 124.74 kg Aditya Billy DO Work Phone: [facility] 12-13-2024 13:51-0400 Diastolic blood pressure 70 mm[Hg] Aditya Billy DO Work Phone: [facility] 12-13-2024 13:51-0400 Systolic blood pressure 128 mm[Hg] Aditya Billy DO Work Phone: [facility] 11-22-2024 14:29-0400 Body mass index (BMI) [Ratio] 42.57 kg/m2 Aditya Billy DO Work Phone: [facility] 11-22-2024 14:29-0400 Body weight 123.29 kg Aditya Billy DO Work Phone: [facility] 11-22-2024 14:29-0400 Diastolic blood pressure 78 mm[Hg] Aditya Billy DO Work Phone: [facility] 11-22-2024 14:29-0400 Systolic blood pressure 128 mm[Hg] Aditya Billy DO Work Phone: [facility] 10-25-2024 09:07-0400 Body mass index (BMI) [Ratio] 41.86 kg/m2 Latasha KULKARNI Work Phone: [facility] 10-25-2024 09:07-0400 Body weight 121.22 kg Latasha KULKARNI Work Phone: [facility] 10-25-2024 09:07-0400 Diastolic blood pressure 82 mm[Hg] Latasha KULKARNI Work Phone: [facility] 10-25-2024 09:07-0400 Systolic blood pressure 108 mm[Hg] Latasha KULKARNI Work Phone: [facility] 09-26-2024 10:24-0400 Body mass index (BMI) [Ratio] 41.62 kg/m2 Aditya Billy DO Work Phone: [facility] 09-26-2024 10:24-0400 Body weight 120.54 kg Aditya Billy DO Work Phone: [facility] 09-26-2024 10:24-0400 Diastolic blood pressure 76 mm[Hg] Aditya Billy DO Work Phone: [facility] 09-26-2024 10:24-0400 Systolic blood pressure 124 mm[Hg] Aditya Billy DO Work Phone: [facility] 08-29-2024 09:23-0400 Body mass index (BMI) [Ratio] 41.47 kg/m2 Aditya Billy DO Work Phone: [facility] 08-29-2024 09:23-0400 Body weight 120.11 kg Aditya Billy DO Work Phone: [facility] 08-29-2024 09:23-0400 Diastolic blood pressure 66 mm[Hg] Aditya Billy DO Work Phone: [facility] 08-29-2024 09:23-0400 Systolic blood pressure 122 mm[Hg] Aditya Billy DO Work Phone: [facility] 06-14-2024 09:05-0500 Body mass index (BMI) [Ratio] 41.16 kg/m2 Latasha KULKARNI Work Phone: [facility] 06-14-2024 09:05-0500 Body weight 119.2 kg Latasha KULKARNI Work Phone: [facility] 06-14-2024 09:05-0500 Diastolic blood pressure 74 mm[Hg] Latasha KULKARNI Work Phone: [facility] 06-14-2024 09:05-0500 Systolic blood pressure 114 mm[Hg] Latasha KULKARNI Work Phone: [facility] 05-17-2024 08:45-0500 Body mass index (BMI) [Ratio] 41.04 kg/m2 Latasha KULKARNI Work Phone: [facility] 05-17-2024 08:45-0500 Body weight 118.84 kg Latasha Dayron PA Work Phone: [facility] 05-17-2024 08:45-0500 Diastolic blood pressure 70 mm[Hg] Latasha Inman PA Work Phone: [facility] 05-17-2024 08:45-0500 Systolic blood pressure 118 mm[Hg] Latasha Dayron PA Work Phone: [facility] 04-18-2024 09:17-0500 Body mass index (BMI) [Ratio] 42.26 kg/m2 Latasha Inman PA Work Phone: [facility] 04-18-2024 09:17-0500 Body weight 122.38 kg Latasha Dayron PA Work Phone: [facility] 04-18-2024 09:17-0500 Diastolic blood pressure 76 mm[Hg] Latasha Dayron PA Work Phone: [facility] 04-18-2024 09:17-0500 Systolic blood pressure 114 mm[Hg] Latasha Dayron PA Work Phone: [facility] 02-21-2024 14:13-0400 Body mass index (BMI) [Ratio] 39.47 kg/m2 Latasha Dayron PA Work Phone: [facility] 02-21-2024 14:13-0400 Body weight 114.31 kg Latasha Dayron PA Work Phone: [facility] 02-21-2024 14:13-0400 Diastolic blood pressure 74 mm[Hg] Latasha Dayron PA Work Phone: [facility] 02-21-2024 14:13-0400 Systolic blood pressure 118 mm[Hg] Latasha Inman PA Work Phone: [facility] 07-15-2023 11:50-0500 Body mass index (BMI) [Ratio] 36.65 kg/m2 Adityamaame Buenrostroo DO Work Phone: [facility] 07-15-2023 11:50-0500 Body weight 106.14 kg Aditya Cervantes DO Work Phone: [facility] 12-04-2021 10:03-0400 Body height 173.35 cm [facility] 12-04-2021 10:03-0400 Body mass index (BMI) [Ratio] 35.22 kg/m2 [facility] 12-04-2021 10:03-0400 Body surface area Derived from formula 2.26 m2 [facility] 12-04-2021 10:03-0400 Body weight 105.83 kg [facility] 12-04-2021 10:03-0400 Diastolic blood pressure 68 mm[Hg] [facility] 12-04-2021 10:03-0400 Heart rate 68 /min [facility] 12-04-2021 10:03-0400 Systolic blood pressure 116 mm[Hg] [facility] 10-15-2020 01:15-0400 Diastolic blood pressure 71 mm[Hg] Donny Andes DO Work Phone: [employer] Work Phone: 10-15-2020 01:15-0400 SaO2% (BldA) [Mass fraction] 94 % Donny Andes DO Work Phone: [employer] Phone: 10-15-2020 01:15-0400 Systolic blood pressure 117 mm[Hg] Donny Andes DO Work Phone: [employer] Work Phone: 10-14-2020 23:18-0400 Body temperature 97.59 [degF] Donny Andes DO Work Phone: [employer] Work Phone: 10-14-2020 23:18-0400 Heart rate 98 /min Donny Andes DO Work Phone: [employer] Work Phone: 10-14-2020 23:18-0400 Respiratory rate 18 /min Donny Andes DO Work Phone: [employer] Work Phone: 09-23-2020 08:31-0400 Body height 172.72 cm Miguel Holley CNP Work Phone: [facility] Work Phone: 09-23-2020 08:31-0400 Body mass index (BMI) [Ratio] 40.9 kg/m2 Miguel Holley CNP Work Phone: [facility] Work Phone: 09-23-2020 08:31-0400 Body surface area Derived from formula 2.32 m2 Miguel Holley CNP Work Phone: [facility] Work Phone: 09-23-2020 08:31-0400 Body temperature 964 [degF] Miguel Holley CNP Work Phone: [facility] Work Phone: 09-23-2020 08:31-0400 Body weight 122.02 kg Miguel Holley CNP Work Phone: [facility] Work Phone: 09-23-2020 08:31-0400 Diastolic blood pressure 80 mm[Hg] Miguel Holley CNP Work Phone: [facility] Work Phone: 09-23-2020 08:31-0400 Heart rate 80 /min Miguel Holley CNP Work Phone: [facility] Work Phone: 09-23-2020 08:31-0400 Respiratory rate 18 /min Miguel Holley CNP Work Phone: [facility] Work Phone: 09-23-2020 08:31-0400 SaO2% (BldA) [Mass fraction] 98 % Miguel Holley CNP Work Phone: [facility] Work Phone: 09-23-2020 08:31-0400 Systolic blood pressure 126 mm[Hg] Miguel Holley CNP Work Phone: [facility] Work Phone: 04-08-2020 16:25-0500 Respiratory Rate 16 /min [facility] [place] 04-08-2020 16:20-0500 Pulse (Heart Rate) 86 /min [facility] 04-08-2020 16:20-0500 Pulse Oximetry 98 % [facility] [place] 04-08-2020 16:00-0500 BP Diastolic 66 mm[Hg] [facility] [place] 04-08-2020 16:00-0500 BP Systolic 121 mm[Hg] [facility] [place] 04-08-2020 13:23-0500 Body Temperature 98.4 [degF] [facility] [place] 03-19-2020 19:09-0400 BMI (Body Mass Index) 37.3 kg/m2 [facility] Work Phone: 03-19-2020 19:09-0400 Body weight 111.13 kg [facility] Work Phone: 03-19-2020 19:09-0400 BSA (Body Surface Area) 2.23 m2 [facility] Work Phone: 03-19-2020 19:09-0400 Height 172.72 cm [facility] Work Phone: 03-05-2020 08:30-0400 BMI (Body Mass Index) 37.3 kg/m2 [facility] Work Phone: 03-05-2020 08:30-0400 Body Temperature 95.4 [degF] [facility] Work Phone: 03-05-2020 08:30-0400 Body weight 111.13 kg [facility] Work Phone: 03-05-2020 08:30-0400 BP Diastolic 80 mm[Hg] [facility] Work Phone: 03-05-2020 08:30-0400 BP Systolic 120 mm[Hg] [facility] Work Phone: 03-05-2020 08:30-0400 BSA (Body Surface Area) 2.23 m2 [facility] Work Phone: 03-05-2020 08:30-0400 Height 172.72 cm [facility] Work Phone: 03-05-2020 08:30-0400 Pulse (Heart Rate) 74 /min [facility] Work Phone: 03-05-2020 08:30-0400 Pulse Oximetry 99 % [facility] Work Phone: 03-05-2020 08:30-0400 Respiratory Rate 18 /min [facility] Work Phone: 03-05-2020 08:30-0400 SaO2% (BldA) [Mass fraction] 99 % [facility] Work Phone: [facility] Work Phone: 12-05-2019 08:37-0400 BMI (Body Mass Index) 35.4 kg/m2 [facility] Work Phone: 12-05-2019 08:37-0400 Body Temperature 98.8 [degF] [facility] Work Phone: 12-05-2019 08:37-0400 Body weight 105.69 kg [facility] Work Phone: 12-05-2019 08:37-0400 BP Diastolic 72 mm[Hg] [facility] Work Phone: 12-05-2019 08:37-0400 BP Systolic 116 mm[Hg] [facility] Work Phone: 12-05-2019 08:37-0400 BSA (Body Surface Area) 2.18 m2 [facility] Work Phone: 12-05-2019 08:37-0400 Flow Rate 0 L/min [facility] Work Phone: 12-05-2019 08:37-0400 Height 172.72 cm [facility] Work Phone: 12-05-2019 08:37-0400 Inhaled Oxygen Concentration 21 % [facility] Work Phone: 12-05-2019 08:37-0400 Pulse (Heart Rate) 81 /min [facility] Work Phone: 12-05-2019 08:37-0400 Pulse Oximetry 98 % [facility] Work Phone: 12-05-2019 08:37-0400 Respiratory Rate 18 /min [facility] Work Phone: 12-05-2019 08:37-0400 SaO2% (BldA) [Mass fraction] 98 % Miguel Dell RN NICU Work Phone: [facility] Work Phone: 11-06-2019 09:02-0400 BMI (Body Mass Index) 36.2 kg/m2 [facility] Work Phone: 11-06-2019 09:02-0400 Body Temperature 95.8 [degF] [facility] Work Phone: 11-06-2019 09:02-0400 Body weight 107.96 kg [facility] Work Phone: 11-06-2019 09:02-0400 BP Diastolic 80 mm[Hg] [facility] Work Phone: 11-06-2019 09:02-0400 BP Systolic 110 mm[Hg] [facility] Work Phone: 11-06-2019 09:02-0400 BSA (Body Surface Area) 2.2 m2 [facility] Work Phone: 11-06-2019 09:02-0400 Height 172.72 cm [facility] Work Phone: 11-06-2019 09:02-0400 Pulse (Heart Rate) 94 /min [facility] Work Phone: 11-06-2019 09:02-0400 Pulse Oximetry 98 % [facility] Work Phone: 11-06-2019 09:02-0400 Respiratory Rate 18 /min [facility] Work Phone: 11-06-2019 09:02-0400 SaO2% (BldA) [Mass fraction] 98 % Miguel Dell [facility] Work Phone: [facility] Work Phone: 10-12-2019 09:53-0400 BMI (Body Mass Index) 38.2 kg/m2 [facility] Work Phone: 10-12-2019 09:53-0400 Body Temperature 98.7 [degF] [facility] Work Phone: 10-12-2019 09:53-0400 Body weight 113.85 kg [facility] Work Phone: 10-12-2019 09:53-0400 BP Diastolic 82 mm[Hg] [facility] Work Phone: 10-12-2019 09:53-0400 BP Systolic 122 mm[Hg] [facility] Work Phone: 10-12-2019 09:53-0400 BSA (Body Surface Area) 2.25 m2 [facility] Work Phone: 10-12-2019 09:53-0400 Flow Rate 0 L/min [facility] Work Phone: 10-12-2019 09:53-0400 Height 172.72 cm [facility] Work Phone: 10-12-2019 09:53-0400 Inhaled Oxygen Concentration 21 % [facility] Work Phone: 10-12-2019 09:53-0400 Pulse (Heart Rate) 97 /min [facility] Work Phone: 10-12-2019 09:53-0400 Pulse Oximetry 98 % [facility] Work Phone: 10-12-2019 09:53-0400 Respiratory Rate 18 /min [facility] Work Phone: 10-12-2019 09:53-0400 SaO2% (BldA) [Mass fraction] 98 % [facility] Work Phone: [facility] Work Phone: 09-14-2019 08:35-0400 BMI (Body Mass Index) 37.7 kg/m2 [facility] Work Phone: 09-14-2019 08:35-0400 Body Temperature 96.6 [degF] [facility] Work Phone: 09-14-2019 08:35-0400 Body weight 112.49 kg [facility] Work Phone: 09-14-2019 08:35-0400 BP Diastolic 80 mm[Hg] [facility] Work Phone: 09-14-2019 08:35-0400 BP Systolic 130 mm[Hg] [facility] Work Phone: 09-14-2019 08:35-0400 BSA (Body Surface Area) 2.24 m2 [facility] Work Phone: 09-14-2019 08:35-0400 Height 172.72 cm [facility] Work Phone: 09-14-2019 08:35-0400 Pulse (Heart Rate) 81 /min [facility] Work Phone: 09-14-2019 08:35-0400 Pulse Oximetry 98 % [facility] Work Phone: 09-14-2019 08:35-0400 Respiratory Rate 18 /min [facility] Work Phone: 09-05-2019 10:26-0400 BMI (Body Mass Index) 37.3 kg/m2 [facility] Work Phone: 09-05-2019 10:26-0400 Body weight 111.13 kg [facility] Work Phone: 09-05-2019 10:26-0400 BSA (Body Surface Area) 2.23 m2 [facility] Work Phone: 09-05-2019 10:26-0400 Height 172.72 cm [facility] Work Phone: 08-17-2019 08:29-0400 BMI (Body Mass Index) 37.3 kg/m2 [facility] Work Phone: 08-17-2019 08:29-0400 Body Temperature 97.9 [degF] [facility] Work Phone: 08-17-2019 08:29-0400 Body weight 111.13 kg [facility] Work Phone: 08-17-2019 08:29-0400 BP Diastolic 80 mm[Hg] [facility] Work Phone: 08-17-2019 08:29-0400 BP Systolic 120 mm[Hg] [facility] Work Phone: 08-17-2019 08:29-0400 BSA (Body Surface Area) 2.23 m2 [facility] Work Phone: 08-17-2019 08:29-0400 Height 172.72 cm [facility] Work Phone: 08-17-2019 08:29-0400 Pulse (Heart Rate) 68 /min [facility] Work Phone: 08-17-2019 08:29-0400 Pulse Oximetry 98 % [facility] Work Phone: 08-17-2019 08:29-0400 Respiratory Rate 18 /min [facility] Work Phone: 07-20-2019 08:36-0500 BMI (Body Mass Index) 39 kg/m2 [facility] Work Phone: 07-20-2019 08:36-0500 Body Temperature 98.4 [degF] [facility] Work Phone: 07-20-2019 08:36-0500 Body weight 116.39 kg [facility] Work Phone: 07-20-2019 08:36-0500 BP Diastolic 80 mm[Hg] [facility] Work Phone: 07-20-2019 08:36-0500 BP Systolic 120 mm[Hg] [facility] Work Phone: 07-20-2019 08:36-0500 BSA (Body Surface Area) 2.27 m2 [facility] Work Phone: 07-20-2019 08:36-0500 Height 172.72 cm [facility] Work Phone: 07-20-2019 08:36-0500 Pulse (Heart Rate) 87 /min [facility] Work Phone: 07-20-2019 08:36-0500 Pulse Oximetry 97 % [facility] Work Phone: 07-20-2019 08:36-0500 Respiratory Rate 18 /min [facility] Work Phone: 07-06-2019 08:43-0500 BMI (Body Mass Index) 39.7 kg/m2 [facility] Work Phone: 07-06-2019 08:43-0500 Body Temperature 97.3 [degF] [facility] Work Phone: 07-06-2019 08:43-0500 Body weight 118.39 kg [facility] Work Phone: 07-06-2019 08:43-0500 BP Diastolic 82 mm[Hg] [facility] Work Phone: 07-06-2019 08:43-0500 BP Systolic 122 mm[Hg] [facility] Work Phone: 07-06-2019 08:43-0500 BSA (Body Surface Area) 2.29 m2 [facility] Work Phone: 07-06-2019 08:43-0500 Height 172.72 cm [facility] Work Phone: 07-06-2019 08:43-0500 Pulse (Heart Rate) 78 /min [facility] Work Phone: 07-06-2019 08:43-0500 Pulse Oximetry 98 % [facility] Work Phone: 07-06-2019 08:43-0500 Respiratory Rate 18 /min [facility] Work Phone: Encounters Encounter Date Encounter Type Care Provider Facility Start: 01-09-2025 End: 01-09-2025 Bamboo flowsheet Aditya Billy DO Work Phone: [facility] Start: 01-09-2025 End: 01-09-2025 Bamboo flowsheet Aditya Billy DO Work Phone: [facility] Start: 01-09-2025 End: 01-09-2025 Office outpatient visit 15 minutes Aditya Billy DO Work Phone: [facility] Comment on above: Third trimester preg robson ([facility]); 32 weeks gestation of ([facility]); Gestational diabetes mellitus (GDM), antepartum, gestational diabetes method of control unspecified ([facility]); Hyperglycemia during ([facility]) Start: 01-09-2025 End: 01-09-2025 ambulatory ADITYA BILLY Not Available Start: 12-27-2024 End: 12-27-2024 Bamboo flowsheet Latasha KULKARNI Work Phone: [facility] Start: 12-27-2024 End: 12-27-2024 Bamboo flowsheet Latasha KULKARNI Work Phone: [facility] Start: 12-27-2024 End: 12-27-2024 ambulatory ADITYA BILLY Not Available Start: 12-27-2024 End: 12-27-2024 Office outpatient visit 15 minutes Latasha KULKARNI Work Phone: [facility] Comment on above: Third trimester preg robson ([facility]) Start: 12-13-2024 End: 12-13-2024 ambulatory ADITYA BILLY Not Available Start: 12-13-2024 End: 12-13-2024 Office outpatient visit 15 minutes Aditya Billy DO Work Phone: [facility] Comment on above: Elevated glucose rikki erance test; History of gestational diabetes; Third trimester ([facility]); 28 weeks gestation of ([facility]); Gestational diabetes mellitus (GDM), antepartum, gestational diabetes method of control unspecified ([facility]) Start: 12-12-2024 End: 12-12-2024 Clinisync Result Encounter Aditya Billy DO Work Phone: [facility] Unsolicited Start: 12-12-2024 End: 12-12-2024 Clinisync Result Encounter Aditya Billy DO Work Phone: [facility] Start: 12-05-2024 End: 12-07-2024 Clinisync Result Encounter Aditya Billy DO Work Phone: [facility]olic[facility] Start: 12-05-2024 End: 12-07-2024 Clinisync Result Encounter Aditya Billy DO Work Phone: [facility]olic[facility] Start: 11-22-2024 End: 11-22-2024 Bamboo flowsheet Aditya Billy DO Work Phone: [facility] Start: 11-22-2024 End: 11-22-2024 Bamboo flowsheet Aditya Billy DO Work Phone: [facility] Start: 11-22-2024 End: 11-22-2024 ambulatory ADITYA BILLY Not Available Start: 11-22-2024 End: 11-22-2024 Office outpatient visit 15 minutes Aditya Billy DO Work Phone: [facility] Comment on above: Dizziness (Primary D x); 25 weeks gestation of ([facility]); Second trimester ([facility]); History of gestational diabetes; Diabetes mellitus screening Start: 10-25-2024 End: 10-25-2024 Office outpatient visit 15 minutes Latasha KULKARNI Work Phone: [facility] Comment on above: Second trimester pre gnancy; 21 weeks gestation of Start: 10-25-2024 End: 10-25-2024 ambulatory LATASHA PADGETT Not Available Start: 10-17-2024 End: 10-30-2024 Clinisync Result Encounter Aditya Billy DO Work Phone: [facility] Unsolicited Start: 10-17-2024 End: 10-30-2024 Clinisync Result Encounter Aditya Billy DO Work Phone: [facility] Unsolicited Start: 10-17-2024 End: 10-17-2024 ambulatory [facility]ITY[facility]GELICA [facility]ILLY [facility] Start: 10-17-2024 End: 10-17-2024 Subsequent hospital visit by physician Miguel Stewart CNP Work Phone: [facility] Start: 09-26-2024 End: 09-26-2024 Bamboo flowsheet Aditya Billy DO Work Phone: [facility] Start: 09-26-2024 End: 09-28-2024 Bamboo flowsheet Aditya Billy DO Work Phone: [facility] Start: 09-26-2024 End: 09-28-2024 Clinisync Result Encounter Aditya Billy DO Work Phone: [facility] Unsolicited Start: 09-26-2024 End: 09-26-2024 ambulatory ADITYA BILLY Not Available Start: 09-26-2024 End: 09-26-2024 Patient encounter procedure Aditya Billy DO Work Phone: [facility] Start: 09-26-2024 End: 09-26-2024 Periodic preventive med est patient 18-39 yrs Aditya Billy DO Work Phone: [facility] Comment on above: Screening, , for anatomic survey; Well woman exam with routine gynecological exam; STD exposure; Vaginal discharge; Second trimester ; 17 weeks gestation of Start: 08-29-2024 End: 08-29-2024 Bamboo flowsheet Aditya Billy DO Work Phone: [facility] Start: 08-29-2024 End: 08-29-2024 Bamboo flowsheet Aditya Billy DO Work Phone: [facility] Start: 08-29-2024 End: 08-29-2024 Office outpatient visit 15 minutes Aditya Billy DO Work Phone: [facility] Comment on above: First trimester preg robson; 13 weeks gestation of ; History of gestational diabetes Start: 08-29-2024 End: 08-29-2024 ambulatory ADITYA BILLY Not Available Start: 08-04-2024 End: 08-04-2024 ambulatory ADITYA BILLY Not Available Start: 07-13-2024 End: 07-13-2024 Clinisync Result Encounter Aditya Billy DO Work Phone: [facility] External Department Unsolicited Start: 07-13-2024 End: 07-13-2024 Clinisync Result Encounter Aditya Billy DO Work Phone: [facility] Start: 07-10-2024 End: 07-10-2024 Clinisync Result Encounter Aditya Billy DO Work Phone: [facility] Start: 07-10-2024 End: 07-10-2024 Clinisync Result Encounter Aditya Billy DO Work Phone: [facility] External Department Unsolicited Start: 06-14-2024 End: 06-14-2024 Bamboo flowsheet Latasha Padgett PA Work Phone: [facility] Start: 06-14-2024 End: 06-14-2024 Bamboo flowsheet Latasha Padgett PA Work Phone: [facility] Start: 06-14-2024 End: 06-14-2024 ambulatory LATASHA PADGETT Not Available Start: 06-14-2024 End: 06-14-2024 Office outpatient visit 15 minutes Latasha Padgett PA Work Phone: [facility] Comment on above: Encounter for weight management Start: 05-17-2024 End: 05-17-2024 Bamboo flowsheet Latasha Padgett PA Work Phone: [facility] Start: 05-17-2024 End: 05-17-2024 Bamboo flowsheet Latasha Padgett PA Work Phone: [facility] Start: 05-17-2024 End: 05-17-2024 Patient encounter procedure Latasha Padgett PA Work Phone: [facility] Comment on above: Weight gain; Encounter for weight management Start: 05-17-2024 End: 05-17-2024 ambulatory LATASHA PADGETT Not Available Start: 04-18-2024 End: 04-18-2024 Bamboo flowsheet Latasha Padgett PA Work Phone: [facility] Start: 04-18-2024 End: 04-18-2024 Bamboo flowsheet Latasha Padgett PA Work Phone: [facility] Start: 04-18-2024 End: 04-18-2024 ambulatory LATASHA PADGETT Not Available Start: 04-18-2024 End: 04-18-2024 Office outpatient visit 15 minutes Latasha Padgett PA Work Phone: [facility] Comment on above: S/P section ; Postop check; Encounter for weight management Start: 02-21-2024 End: 02-21-2024 care visit Latasha KULKARNI Work Phone: [facility] Comment on above: 6 weeks f ollow-up; S/P section Start: 02-21-2024 End: 02-21-2024 ambulatory LATASHA PADGETT Not Available Start: 07-15-2023 End: 07-15-2023 flow sheet Aditya Cervantes DO Work Phone: [facility] Comment on above: Second trimester pre gnancy Start: 01-01-2023 End: 01-01-2023 Patient encounter procedure Miguel Dell [employer]IT[employer] MAINTENANCE WORKER - RN NICU Work Phone: [facility] Start: 01-01-2023 End: 01-01-2023 Subsequent hospital visit by physician Miguel Holley APRN - RN NICU Work Phone: [facility] Comment on above: Women's annual routi ne gynecological examination Start: 12-16-2021 End: 12-16-2021 Subsequent hospital visit by physician Miguel Holley FACILITIES MAINTENANCE WORKER - RN NICU Work Phone: [facility] Start: [facility]-04-[facility]21 [facility] Office Start: 10-02-2021 End: 10-02-2021 Patient encounter procedure Miguel Holley FACILITIES MAINTENANCE WORKER - RN NICU Work Phone: [facility] Start: 10-02-2021 End: 10-02-2021 Subsequent hospital visit by physician Miguel Holley FACILITIES MAINTENANCE WORKER - RN NICU Work Phone: [facility] Comment on above: Women's annual routi ne gynecological examination Start: 10-14-2020 End: 10-15-2020 Emergency department patient visit Donny Hatfield DO Work Phone: [facility] Comment on above: Nausea vomiting and diarrhea (Primary Dx); Generalized abdominal pain Start: 09-23-2020 End: 09-24-2020 ambulatory MIGUEL HOLLEY [facility] Start: 09-23-2020 End: 09-23-2020 Subsequent hospital visit by physician Miguel Holley APRN - RN NICU Work Phone: [facility] Start: 09-23-2020 End: 09-23-2020 General Jammie RIBEIROW Work Phone: [facility] Work Phone: Start: 09-23-2020 End: 09-23-2020 Adult health examination Miguel Holley CNP Work Phone: [facility] Work Phone: Start: 09-23-2020 End: 09-23-2020 [facility] visit, estab pt Miguel Holley RN NICU Work Phone: [facility] Work Phone: Start: 04-08-2020 End: 04-08-2020 Emergency department patient visit [facility] Comment on above: COVID-19 (Primary Dx ); Fatty liver Start: 03-19-2020 End: 03-19-2020 Telemedicine consultation with patient Miguel Holley Work Phone: [facility] Work Phone: Start: 03-05-2020 End: 03-05-2020 Established patient Miguel Holley Work Phone: [facility] Work Phone: Start: 12-05-2019 End: 12-05-2019 Established patient Poly Franco Work Phone: [facility] Work Phone: Start: 11-06-2019 End: 11-06-2019 Established patient Poly Franco Work Phone: [facility] Work Phone: Start: 10-12-2019 End: 10-12-2019 Patient encounter procedure Paty Short Work Phone: [facility] Work Phone: Start: 10-12-2019 End: 10-12-2019 Established patient Poly Franco Work Phone: [facility] Work Phone: Start: 09-14-2019 End: 09-14-2019 Established patient Poly Franco Work Phone: [facility] Work Phone: Start: 09-11-2019 End: 09-11-2019 Telemedicine consultation with patient Poly Franco Work Phone: [facility] Work Phone: Start: 09-05-2019 End: 09-05-2019 Telemedicine consultation with patient Poly Franco Work Phone: [facility] Work Phone: Start: 08-17-2019 End: 09-11-2019 Telemedicine consultation with patient Poly Franco Work Phone: [facility] Work Phone: Start: 08-17-2019 End: 08-17-2019 Established patient Miguel Holley Work Phone: [facility] Work Phone: Start: 07-20-2019 End: 07-20-2019 Established patient Miguel Holley Work Phone: [facility] Work Phone: Start: 07-06-2019 End: 07-06-2019 Subsequent hospital visit by physician Jackson [facility] [facility] Start: 07-06-2019 End: 07-06-2019 Established patient Anh Virk Work Phone: [facility] Work Phone: Start: 07-06-2019 End: 07-06-2019 New patient Allyson Floyd Work Phone: [facility] Work Phone: Start: 02-02-2019 End: 02-04-2019 Subsequent hospital visit by physician [facility] Ultrasound Room [facility] Ultrasound Comment on above: Encounter for intrau terine device placement Start: 08-21-2018 End: 08-23-2018 Patient encounter procedure [facility] Start: 01-04-2017 End: 01-04-2017 Emergency department patient visit 837 NO FAMILY PHYSICIAN Facility:[id number] Procedures Date Procedure Procedure Detail Performing Clinician Start: 01-09-2025 Urnls dip stick/tabl et rgnt non-auto w/o micrscp Aditya Billy DO Work Phone: Start: 12-27-2024 Urnls dip stick/tabl et rgnt non-auto w/o micrscp Latasha KULKARNI Work Phone: Start: 12-13-2024 Urnls dip stick/tabl et rgnt non-auto w/o micrscp Aditya Billy DO Work Phone: Start: 12-12-2024 GLUCOSE TOLERANCE 3 HOUR Aditya Billy DO Work Phone: Start: 12-05-2024 ALL CBC WITH AUTO DIFF Aditya Billy DO Work Phone: Start: 12-05-2024 ECG 12-LEAD Latasha KULKARNI Work Phone: Start: 11-22-2024 Urnls dip stick/tabl et rgnt non-auto w/o micrscp Aditya Billy DO Work Phone: Start: 10-25-2024 Urnls dip stick/tabl et rgnt non-auto w/o micrscp Latasha KULKARNI Work Phone: Start: 10-17-2024 MHPT AFP, MATERNAL Core y Billy DO Work Phone: Start: 09-26-2024 Urnls dip stick/tabl et rgnt non-auto w/o micrscp Aditya Billy DO Work Phone: Start: 09-26-2024 IGP,APTIMA HPV,AGE GDLN Aditya Billy DO Work Phone: Start: 08-29-2024 Urnls dip stick/tabl et rgnt non-auto w/o micrscp Aditya Billy DO Work Phone: Start: 07-13-2024 TBH PREG QUANT HCG Core y Billy DO Work Phone: Start: 07-10-2024 TBH PREG QUANT HCG Core y Billy DO Work Phone: Start: 07-15-2023 Urnls dip stick/tabl et rgnt non-auto w/o micrscp Aditya Buenrostroo DO Work Phone: Start: 01-01-2023 Microscopic observat ion [Identifier] in Cervix by Cyto stain Miguel Holley FACILITIES MAINTENANCE WORKER - RN NICU Work Phone: Start: 12-16-2021 Assay of blood/uric acid Dedrick KULKARNI-C Work Phone: Start: 12-16-2021 C-reactive protein Robel Wood PA-C Work Phone: Start: 12-04-2021 Nerve conduction heaven dies 9-10 studies Shona Lucio Start: 10-02-2021 Microscopic observat ion [Identifier] in Cervix by Cyto stain Miguel Holley FACILITIES MAINTENANCE WORKER - RN NICU Work Phone: Start: 10-15-2020 Urinalysis microscop ic only Donny And DO Work Phone: Start: 10-15-2020 Urnls dip [...] risk assmt score doc stnd instrm Miguel Dell RN NICU Work Phone: Start: 09-23-2020 Antibody hiv-1&hiv-2 single result Miguel Holley RN NICU Work Phone: Start: 09-23-2020 Comprehensive metabo lic panel Miguel Holley FACILITIES MAINTENANCE WORKER - RN NICU Work Phone: Start: 04-08-2020 Ct thorax w/contrast material Ninoska Lopes Work Phone: Start: 04-08-2020 COVID-19 Ninoska Herron alejandro Work Phone: Start: 04-08-2020 Urine test visual color cmprsn meths Ninoska Lopes Work Phone: Start: 04-08-2020 Assay of troponin quantitative Ninoska Lopes Work Phone: Start: 04-08-2020 Blood count complete automated Ninoska Lopes Work Phone: Start: 04-08-2020 Comprehensive metabo lic panel Ninoska Lopes Work Phone: Start: 04-08-2020 Natriuretic peptide [facility] ruddy Lopes Work Phone: Start: 04-08-2020 Prothrombin [...] Work Phone: Start: 02-02-2019 Us transvaginal Dana Roseanne Tashi Work Phone: Start: 02-07-2018 Microscopic observat ion [Identifier] in Cervix by Cyto stain Miguel Holley FACILITIES MAINTENANCE WORKER - RN NICU Work Phone: H/O: section S/P jose carlos [...] Treatment Date Care Activity Detail Author Start: 01-01-2026 Screening for malign ant neoplasm of cervix Pap smear [facility] Start: 02-07-2025 End: 02-07-2025 Patient encounter procedure 02/07/2025 10:50 AM EDT Routine [facility] [address] [place] [address] Aditya Cervantes DO [address] [place] [address] [facility] Start: 01-29-2025 Influenza vaccination Influenza Vacc ine (#1) [facility] Start: 01-23-2025 End: 01-23-2025 Patient encounter procedure 01/23/2025 9:50 AM EDT Routine [facility] [address] [place] [phone] Latasha Padgett PA [address] [place] [address] [facility] Start: 01-10-2025 End: 01-10-2025 Patient encounter procedure 01/10/2025 1:00 PM EDT Routine [facility] [address] [place] [address] Aditya Cervantes DO [address] [place] [address] [facility] Start: 01-09-2025 End: 07-12-2025 US biophysical profile w non stress test US biophysical profile w non stress test Imaging Routine Hyperglycemia during ([facility]) Expected: 01/09/2025 (Approximate), Expires: 07/12/2025 [facility] Work Phone: Comment on above: Expected: 01/09/2025 (Approximate), Expires: 07/12/2025 Start: 01-09-2025 End: 01-09-2025 Patient encounter procedure [facility] Comment on above: Arrived Start: 12-29-2024 Influenza vaccination Flu vacc ine (Season Ended) [facility] Start: 12-27-2024 End: 12-27-2024 Professional / ancillary services management [facility] Start: 12-27-2024 End: 12-27-2024 Patient encounter procedure 12/27/2024 10:20 AM EDT Routine [facility] [address] [place] [address] Latasha Padgett PA [address] [place], [place] [id number] [facility] Start: 12-13-2024 End: 12-13-2024 Patient encounter procedure 12/13/2024 1:40 PM EDT Routine [facility] [address] [place] [address] Aditya Cervantes DO [address] [facility] [address] [place], [place] [id number] [facility] Start: 12-06-2024 End: 12-06-2025 Measurement of glucose 3 hours after glucose challenge for glucose tolerance test Glucose tolerance, 3 hours Lab Routine Elevated glucose tolerance test Expected: 12/06/2024 (Approximate), Expires: 12/06/2025 [facility] Work Phone: Comment on above: Expected: 12/06/2024 (Approximate), Expires: 12/06/2025 Start: 11-22-2024 End: 11-22-2025 12 lead ECG ECG 12 lead unit performed ECG Routine Dizziness Expected: 11/22/2024 (Approximate), Expires: 11/22/2025 [facility] Work Phone: Comment on above: Expected: 11/22/2024 (Approximate), Expires: 11/22/2025 Start: 11-22-2024 End: 11-22-2025 CBC panel - Blood by Automated count CBC Lab Routine Diabetes mellitus screening Expected: 11/22/2024 (Approximate), Expires: 11/22/2025 [facility] Work Phone: Comment on above: Expected: 11/22/2024 (Approximate), Expires: 11/22/2025 Start: 11-22-2024 End: 11-22-2025 Measurement of glucose 1 hour after glucose challenge for glucose tolerance test Glucose tolerance, 1 hour Lab Routine Diabetes mellitus screening Expected: 11/22/2024 (Approximate), Expires: 11/22/2025 [facility] Comment on above: Expected: 11/22/2024 (Approximate), Expires: 11/22/2025 Start: 11-22-2024 End: 11-22-2024 Patient encounter procedure 11/22/2024 1:50 PM EDT Routine [facility] [address] [place] [phone] Aditya Cervantes DO [address] [facility] [address] [place] [place], [place] [phone] [facility] Start: 10-25-2024 End: 10-25-2024 Patient encounter procedure 10/25/2024 9:30 AM EDT Routine [facility] [address] [facility] [place] [phone] Latasha Padgett PA [address] [place] [address] [facility] Start: 10-25-2024 End: 10-25-2024 Professional / ancillary services management 10/25/2024 8:00 AM EDT Ancillary Procedure [facility] [address] [place] [phone] [facility] Start: 10-02-2024 Screening for malign ant neoplasm of cervix Pap smear [facility] Start: 09-26-2024 End: 11-26-2024 Alpha fetoprotein, maternal Alpha fetoprotein, maternal Lab Routine 17 weeks gestation of Expected: 09/26/2024 (Approximate), Expires: 11/26/2024 [facility] Comment on above: Expected: 09/26/2024 (Approximate), Expires: 11/26/2024 Start: 09-26-2024 End: 12-26-2024 US for US OB 14+ weeks anatomy scan Imaging Routine Screening, , for anatomic survey Expected: 09/26/2024, Expires: 12/26/2024 [facility] Comment on above: Expected: 09/26/2024 , Expires: 12/26/2024 Start: 09-26-2024 End: 09-26-2024 Patient encounter procedure 09/26/2024 9:50 AM EDT Routine [facility] [address] [place] [address] Aditya Cervantes, DO [address] [place] [address] [facility] Start: 08-29-2024 End: 08-29-2024 Patient encounter procedure 08/29/2024 9:20 AM EDT Routine [facility] [address] [place] [address] Aditya Cervantes, DO [address] [place] [address] Arrived [facility] Comment on above: Arrived Start: 08-04-2024 End: 08-04-2024 ambulatory 08/04/2024 9:00 AM EST Initial [facility] [address] [place] [phone] [facility] Start: 08-04-2024 End: 08-04-2024 Professional / ancillary services management 08/04/2024 8:30 AM EST Ancillary Procedure [facility] [address] [place] [phone] [facility] Start: 07-12-2024 End: 07-12-2024 Patient encounter procedure 07/12/2024 8:30 AM EST Office Visit [facility] [address] [facility] [place] [phone] Latasha Padgett PA [address] [place] [address] [facility] Start: 05-17-2024 End: 05-17-2024 Patient encounter procedure [facility] Comment on above: Arrived Start: 05-10-2024 End: 05-10-2024 Patient encounter procedure 05/10/2024 8:40 AM EST Office Visit [facility] [address] [facility] [place] [address] Latasha Padgett, PA [address] [place] [address] [facility] Start: 01-30-2024 COVID-19 Vaccine ( season) COVID-19 Vaccine ( season) [facility] Start: 01-30-2024 Influenza vaccination Influenza Vacc ine (#1) [facility] Start: 08-19-2023 End: 08-19-2023 Patient encounter procedure 08/19/2023 11:00 AM EDT Routine [facility] [address] [facility] [place] [address] Latasha Padgett, PA [address] [place] [address] [facility] Start: 08-19-2023 End: 08-19-2023 Professional / ancillary services management 08/19/2023 10:00 AM EDT Ancillary Procedure [facility] [address] [place] [phone] [facility] Start: 01-20-2023 End: 01-20-2023 Admission to same day surgery center 01/20/2023 Surgery IP Unit Mychal Nichols MD [address] [place] [address] [facility] Comment on above: HYSTEROSCOPY - IUD R EMOVAL Start: 01-20-2023 End: 01-20-2023 Hysteroscopy removal impacted foreign body HYSTEROSCOPY Intrauterine contraceptive device threads lost, initial encounter 01/20/2023 11:10 AM EDT [facility] Start: 01-20-2023 Subsequent hospital visit by physician 01/20/2023 Hospital Encounter IP Unit Mychal Nichols MD [address] [facility] [address] [place] [address] [facility] Start: 12-29-2022 Influenza vaccination Flu vaccine (# 1) [facility] Start: 04-27-2022 End: 04-27-2022 Patient encounter procedure [facility] Start: 01-29-2022 Influenza vaccination [facility] Start: 02-07-2021 Cervical cancer screen Cervical canc er screen [facility] [place] Start: 02-07-2021 Screening for malign ant neoplasm of cervix [facility] Start: 01-29-2021 Influenza vaccination Flu vacc ine (Season Ended) [facility] Work Phone: Start: 09-30-2020 CBC W Auto Different ial panel - Blood [facility] Start: 09-30-2020 Lipid 1996 panel - Serum or Plasma LIPID PROFILE [facility] Start: 09-23-2020 Psych[facility] Work Phone: Comment on above: Note: Please make a referral to: Start: 03-26-2020 SARS-CoV-2, KAILA [facility] Work Phone: Start: 03-19-2020 COVID Drive up Testing [facility] Work Phone: Start: 02-06-2020 Medical Establ ished Patient [facility] Work Phone: Start: 01-30-2020 Influenza vaccination Flu vaccine (# 1) [place], [place] Start: 11-09-2019 Medical Establ ished Patient [facility] Work Phone: Start: 10-11-2019 Medical Establ ished Patient [facility] Work Phone: Start: 09-14-2019 Medical Establ ished Patient [facility] Work Phone: Start: 08-17-2019 Medical Establ ished Patient [facility] Work Phone: Start: 07-20-2019 Medical Establ ished Patient [facility] Work Phone: Start: 07-13-2019 Lipid 1996 panel [facility] Work Phone: Start: 02-14-2019 End: 02-14-2019 Office Visit 02/14/2019 Office Visit Obstetrics and Gynecology Pilar Marie APRN - ANNETTA [address] [place], [place] [phone] [facility] 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 Start: 02-07-2019 Chlamydia screen Chlamydia screen [place], [place] Start: 02-07-2019 Screening for Chlamy valentino trachomatis Chlamydia screen [facility] Start: 01-29-2019 Influenza vaccination Flu vaccine (# 1) [place], [place] Start: 10-29-2017 DTaP/Tdap/Td vaccine (2 - Td or Tdap) DTaP/Tdap/Td vaccine (2 - Td or Tdap) [facility] Start: 10-29-2017 DTaP/Tdap/Td vaccine (2 - Td) DTaP/Tdap/Td vaccine (2 - Td) [place], [place] Start: 2015 Hepatitis B vaccine (1 of 3 - 19+ 3-dose series) Hepatitis B vaccine (1 of 3 - 19+ 3-dose series) [facility]bigail [facility] Start: 2014 Hepatitis C screening Hepatitis C sc reen [facility] Start: 2012 COVID-19 Vaccine (1) COVID-19 Vaccin e (1) [facility] Work Phone: Start: 2011 HIV screen HIV screen [place], [place] Start: 2011 HIV screening HIV screen [facility] Start: 2011 HPV vaccine (1 - Fem shiela 3-dose series) HPV vaccine (1 - Female 3-dose series) [place], [place] Start: 2009 Varicella Vaccine (1 of 2 - 13+ 2-dose series) Varicella Vaccine (1 of 2 - 13+ 2-dose series) [facility] Start: 2008 COVID-19 Vaccine (1) COVID-19 Vaccin e (1) [facility] [employer] Phone: Start: 2008 Depression Screen Depression Screen [facility] Start: 2007 HPV vaccine (1 - 2-d ose series) HPV vaccine (1 - 2-dose series) [facility] Start: 2007 HPV vaccine (1 - Fem shiela 2-dose series) HPV vaccine (1 - Female 2-dose series) [facility] Phone: Start: 2001 COVID-19 Vaccine (1) COVID-19 Vaccin e (1) [facility] Start: 1997 Varicella vaccine (1 of 2 - 2-dose childhood series) Varicella vaccine (1 of 2 - 2-dose childhood series) [facility] Start: 1996 COVID-19 Vaccine (#1) COVID-19 Vacci ne (#1) [facility] Start: 1996 Hepatitis C screening Hepatitis C sc reen [facility] [employer] Phone: End: 10-17-2024 Alpha Fetoprotein, Maternal [facility] [employer] Phone: Comment on above: Once for 1 Occurrenc es starting 10/17/2024 until 10/17/2024 End: 12-16-2021 GLENNY Screen with Reflex [facility] Phone: Comment on above: Once for 1 Occurrenc es starting 12/16/2021 until 12/16/2021 CHLAMYDIA TRACHOMATI S (GENITO/STI) CHLAMYDIA TRACHOMATIS (GENITO/STI) Lab Routine STD exposure Vaginal discharge Ordered: 09/26/2024 [facility] Comment on above: Ordered: 09/26/2024 Cytology Cervical or vaginal smear or scraping study Pap Smear Pathology and Cytology Routine Well woman exam with routine gynecological exam Ordered: 09/26/2024 [facility] Comment on above: Ordered: 09/26/2024 End: 10-02-2021 Cytopathology procedure, preparation of smear, genital source PAP SMEAR Lab Routine Women's annual routine gynecological examination 1 Occurrences starting 10/02/2021 until 10/02/2021 [facility] Phone: Comment on above: 1 Occurrences starti ng 10/02/2021 until 10/02/2021 End: 01-01-2023 Cytopathology procedure, preparation of smear, genital source PAP SMEAR Lab Routine Women's annual routine gynecological examination 1 Occurrences starting 01/01/2023 until 01/01/2023 [employer] Phone: Comment on above: 1 Occurrences starti ng 01/01/2023 until 01/01/2023 End: 12-16-2021 HLA-B27 Antigen [employer] Phone: Comment on above: Once for 1 Occurrenc es starting 12/16/2021 until 12/16/2021 End: 07-06-2019 Insulin, free Insulin, free Lab Routine Once for 1 Occurrences starting 07/06/2019 until 07/06/2019 [facility] Phone: Comment on above: Once for 1 Occurrenc es starting 07/06/2019 until 07/06/2019 Insulin, free Insulin, free La b Routine 07/06/2019 9:31 AM EST [facility] Phone: End: 12-16-2021 Lyme Ab [facility] Phone: Comment on above: Once for 1 Occurrenc es starting 12/16/2021 until 12/16/2021 Neisseria gonorrhoea e DNA [Presence] in Unspecified specimen by KAILA with probe detection Neisseria gonorrhea DNA probe, direct Lab Routine STD exposure Vaginal discharge Ordered: 09/26/2024 [facility] Comment on above: Ordered: 09/26/2024 SURESWAB(R) ADVANCED VAGINITIS PLUS, TMA SURESWAB(R) ADVANCED VAGINITIS PLUS, TMA Pathology and Cytology Routine STD exposure Vaginal discharge Ordered: 09/26/2024 [facility] Work Phone: Comment on above: Ordered: 09/26/2024 End: 02-13-2025 US for US OB follow up transabdominal approach Imaging Routine Elevated glucose tolerance test Gestational diabetes mellitus (GDM), antepartum, gestational diabetes method of control unspecified ([facility]) q4 weeks for 4 Occurrences starting 12/13/2024 until 02/13/2025 [facility] Comment on above: q4 weeks for 4 Occur rences starting 12/13/2024 until 02/13/2025 Immunizations Immunization Date Immunization Notes Care Provider Em de la cruz 10-30-2007 tetanus toxoid, redu katelyn diphtheria toxoid, and acellular pertussis vaccine, adsorbed [facility] Payers Date Payer Category Payer Medicaid [id number] 2023 Medicaid [id number] 2023 Unknown [facility] [id number] 2023-Present [address] [address] [place] [address] [id number] 2022 Unknown [employer] [address] [id number] 2022-Present [address] [place] [address] [id number] 2018 Unknown [id number] 2016 Unknown [employer] [address] xxxxxxxxxxxx 2016-Present [phone] [address] [place] [address] xxxxxxxxxxxx [id number] 1996 Unknown [id number] 1996 Unknown [id number] 1996 Unknown [id number] 2.16.840.1.918355.3.579.2.125 9 1996 Unknown [id number] 2.16.840.1.919619.3.579.2.125 9 1996 Unknown [id number] 2.16.840.1.865329.3.579.2.125 9 1996 Unknown [id number] 2.16.840.1.983393.3.579.2.125 9 1996 Unknown [id number] 2.16.840.1.985117.3.579.2.125 9 1996 Unknown [id number] 2.16.840.1.060517.3.579.2.125 9 1996 Unknown [id number] 2.16.840.1.417646.3.579.2.125 9 1996 Unknown [id number] 2.16.840.1.963695.3.579.2.125 9 1996 Unknown [id number] 2.16.840.1.157132.3.579.2.125 9 1996 Unknown [id number] 2.16.840.1.873015.3.579.2.125 9 1996 Unknown [id number] 2.16.840.1.603772.3.579.2.125 9 1996 Unknown [id number] 2.16.840.1.925643.3.579.2.125 9 1996 Unknown [id number] 2.16.840.1.775621.3.579.2.125 9 1996 Unknown [id number] 2.16.840.1.955497.3.579.2.125 9 1996 Unknown [id number] 2.16.840.1.671330.3.579.2.125 9 Unknown [id number] Social History Date Type Detail Facility Assertion [facility] Work Phone: Assertion Emotional stress (finding) [facility] Work Phone: Tobacco smoking status Unknown if ever smoked [facility] Assertion Sexually active (finding) [facility] Work Phone: Assertion Gender identity finding (finding) [facility] Work Phone: Assertion Finding of sexua l orientation (finding) [facility] Work Phone: Start: 02-07-2018 End: 01-06-2023 Tobacco smoking status NHIS Never smoker [place], [place] Start: 02-07-2018 End: 01-20-2023 Alcohol intake Current drinker of alcohol (finding) [facility] Phone: Start: 12-12-2015 Alcohol Comment occassionally [place], [place] Start: 1996 Sex Assigned At Not on file [place] Start: 04-08-2020 End: 01-06-2023 Tobacco use and exposure Never used [place], [place] Exposure to SARS-CoV-2 (event) Not sure [place] Start: 02-07-2018 End: 01-20-2023 Alcohol intake Yes [place] Assertion Family illness (situation) [facility] Work Phone: Assertion Single person (finding) [facility] Work Phone: Start: *Tobacco [facility] Start: 04-15-2023 [facility] Start: 01-20-2023 History of Social function [facility] Start: 10-12-2013 Sex Female (finding) [facility] [employer] NEGATED: Highlighted row Assertion Exposure to pollution (event) [facility] Work Phone: NEGATED: Highlighted row Assertion Tobacco user (finding) [facility] Work Phone: NEGATED: Highlighted row Assertion Current drinker of alcohol (finding) [facility] Work Phone: NEGATED: Highlighted row Assertion Finding relating to drug misuse behavior (finding) [facility] Work Phone: Mental Status Date Assessment Result Facility Cognitive function Cognitive fun ctioning was normal Cognitive function finding (finding) [facility] Work Phone: Clinical Notes 11-06-2019 to 01-09-2025 Aditya Cervantes DO - 01/09/2025 11:10 AM CAYLA Bartlett - 12/27/2024 10:20 AM Olive Dong LPN - 12/13/2024 1:40 PM CAYLA Bartlett - 11/22/2024 1:50 PM CAYLA Bartlett - 10/25/2024 9:30 AM EDT Note Date & Type Note Facility 01-09-2025 History of Presen t illness Narrative Reason [...] Excessive growth affecting management of mother, antepartum ([facility]) 12/06/2023 Third trimester ([facility]) 12/06/2023 No Additional Past Medical [...] nursing note reviewed. Exam conducted with a assistant boiler operator present. Vitals: Estimated body mass index is 42.88 kg/m as calculated from the following: Height as of 01/10/24: 5' 7 . Weight as of 12/27/24: 273 lb 12.8 oz. BP: No LMP recorded. Patient is . Assessment/Plan Encounter Diagnosis: ICD-10-CM 1. Third trimester ([facility]) Z34.93 POCT urinalysis dipstick manually resulted 2. 32 weeks gestation of ([facility]) Z3A.32 3. Gestational diabetes mellitus (GDM), antepartum, gestational diabetes method of control unspecified ([facility]) O24.419 4. Hyperglycemia during ([facility]) O99.810 US biophysical profile w [...] Aditya Cervantes DO documented in this encounter [facility] 12-27-2024 History of Presen t illness Narrative Reason for Appointment: Patient ID: Estefania Cedeño is a 29 y.o. female who presents for Routine Visit Patient presents today for Return OB appointment. MEDICATIONS Current Outpatient Medications Medication Instructions aspirin 81 mg, Daily Continuous Glucose Sensor (Dexcom G6 Sensor) misc 1 each, Does not apply, Every 10 days Continuous Glucose Transmitter (Dexcom G6 transmitter) misc Use as instructed Vit-Fe Fumarate-FA (PNV Plus Multivitamin) 27-1 MG tablet 1 tablet, Oral, Daily ALLERGIES Allergies Allergen Reactions Triamcinolone Other and Hives Had to have reconstructive surgery. Dimpling of the skin Other NUTS PROBLEMS Active Ambulatory Problems Diagnosis Date Noted No Active Ambulatory Problems Resolved Ambulatory Problems Diagnosis Date Noted Excessive growth affecting management of mother, antepartum ([facility]) 12/06/2023 Third trimester ([facility]) 12/06/2023 No Additional Past Medical History HISTORY [...] She is normal weight. HENT: Head: Normocephalic. Nose: Nose normal. Mouth/Throat: Mouth: Mucous membranes are moist. Cardiovascular: Rate and Rhythm: Normal rate. Pulses: Normal pulses. Pulmonary: Effort: Pulmonary effort is normal. Breath sounds: Normal breath sounds. Abdominal: General: Bowel sounds are normal. Palpations: Abdomen is soft. Musculoskeletal: General: Normal range of motion. Cervical back: Normal range of motion. Neurological: General: No focal deficit present. Mental Status: She is alert and oriented to person, place, and time. Skin: General: Skin is warm and dry. Psychiatric: Mood and Affect: Mood normal. Behavior: Behavior normal. Thought Content: Thought content normal. Judgment: Judgment normal. Vitals and nursing note reviewed. Exam conducted with a assistant boiler operator present. Vitals: Estimated body mass index is 42.88 kg/m as calculated from the following: Height as of 24: 5' 7 . Weight as of this encounter: 273 lb 12.8 oz. BP: 122/74 No LMP recorded. Patient is . ASSESSMENT & PLAN ICD-10-CM 1. Third trimester ([facility]) Z34.93 POCT urinalysis dipstick manually resulted Return OB: Patient presents today for a routine obstetrics appointment. Patient is currently 30w1d . Patient states she is doing well but has complaints of being tired due to current . Patient has verbalizes frequent movement. labor precautions was discussed/given and patient was instructed to perform kick counts three times a day. Orders Placed This Encounter Procedures POCT urinalysis dipstick manually resulted Follow Up: Patient is to return to office in 2 week for routine OB appointment. documented in this encounter [facility] 12-13-2024 History of Presen t illness Narrative Reason for Appointment: Patient ID: Estefania Cedeño is a 29 y.o. female who presents for Routine Visit Patient presents today for Return OB appointment. MEDICATIONS Current Outpatient Medications Medication Instructions aspirin 81 mg, Daily iron polysaccharides (PROFE) 391.3 mg, Oral, Daily Vit-Fe Fumarate-FA (PNV Plus Multivitamin) 27-1 MG tablet 1 tablet, Oral, Daily ALLERGIES Allergies Allergen Reactions Triamcinolone Other and Hives Had to have reconstructive surgery. Dimpling of the skin Other NUTS PROBLEMS Active Ambulatory Problems Diagnosis Date Noted No Active Ambulatory Problems Resolved Ambulatory Problems Diagnosis Date Noted Excessive growth affecting management of mother, antepartum ([facility]) 12/06/2023 Third trimester ([facility]) 12/06/2023 No Additional Past Medical History HISTORY [...] Negative. Endocrine: Negative. Allergic/Immunologic: Negative. OBJECTIVE Objective: OBGyn Exam Vitals: Estimated body mass index is 43.07 kg/m as calculated from the following: Height as of 01/10/24: 5' 7 . Weight as of this encounter: 275 lb. BP: 128/70 No LMP recorded. Patient is . ASSESSMENT & PLAN ICD-10-CM 1. Elevated glucose tolerance test R73.09 Glucose tolerance, 3 hours Glucose tolerance, 3 hours 2. History of gestational diabetes Z86.32 3. Third trimester ([facility]) Z34.93 POCT urinalysis dipstick manually resulted 4. 28 weeks gestation of ([facility]) Z3A.28 POCT urinalysis dipstick manually resulted Return OB: Patient presents today for a routine obstetrics appointment. Patient is currently 28w1d . Patient states she is doing well but has complaints of being tired due to current . Patient has verbalizes frequent movement. labor precautions was discussed/given and patient was instructed to perform kick counts three times a day. Dexcom faxed to pharmacy- if not covered will call in normal diabetic supplies Orders Placed This Encounter Procedures Glucose tolerance, 3 hours POCT urinalysis dipstick manually resulted Follow Up: Patient is to return to office in 2 week for routine OB appointment. Documented by Lindsey Dong LPN on behalf of: Aditya Cervantes DO documented in this encounter [facility] 11-22-2024 History of Presen t illness Narrative Reason [...] Excessive growth affecting management of mother, antepartum ([facility]) 12/06/2023 Third trimester ([facility]) 12/06/2023 No Additional Past Medical History HISTORY [...] Vitals: Estimated body mass index is 42.57 kg/m as calculated from the following: Height as of 01/09/24: 5' 7 . Weight as of this encounter: 271 lb 12.8 oz. BP: 128/78 No LMP recorded. Patient is . ASSESSMENT & PLAN ICD-10-CM 1. 25 weeks gestation of ([facility]) Z3A.25 POCT urinalysis dipstick manually resulted 2. Second trimester ([facility]) Z34.92 POCT urinalysis dipstick manually resulted 3. [...] 1 hour POCT urinalysis dipstick manually resulted Follow Up: Patient is to return to office in 2 week for routine OB appointment. Documented by CAYLA Kwok on behalf of: Aditya Cervantes DO documented in this encounter [facility] 10-25-2024 History of Presen t illness Narrative Reason [...] reviewed. Vitals: Estimated body mass index is 41.86 kg/m as calculated from the following: Height as of 01/10/24: 5' 7 . Weight as of this encounter: 267 lb 4 oz. BP: 108/82 No LMP recorded. Patient is . ASSESSMENT & PLAN ICD-10-CM 1. Second trimester Z34.92 POCT urinalysis dipstick manually resulted 2. 21 weeks gestation of Z3A.21 Return OB: Patient presents today for a routine obstetrics appointment. Patient is currently 21w1d . Patient states she is doing well but has complaints of being tired due to current . Patient has verbalizes frequent movement. Orders Placed This Encounter Procedures POCT urinalysis dipstick manually resulted Follow Up: Patient is to return to office in 4 week for routine OB appointment. Documented by CAYLA Kwok on behalf of: CAYLA Kwok documented in this encounter [facility] 09-26-2024 History of Presen t illness Narrative Reason for Appointment: Patient ID: Estefania Cedeño is a 29 y.o. female who presents for Routine Visit Patient presents today for Annual Exam., STD Check., and Return OB appointment. MEDICATIONS Current Outpatient Medications Medication Instructions Vit-Fe Fumarate-FA (PNV Plus Multivitamin) 27-1 MG [...] Respiratory: Negative. Cardiovascular: Negative. Gastrointestinal: Negative. Genitourinary: Positive for vaginal bleeding. Musculoskeletal: Negative. Skin: Negative. Neurological: Negative. All other systems reviewed and are negative. Hematological: Negative. Endocrine: Negative. Allergic/Immunologic: Negative. OBJECTIVE Objective: Physical Exam Constitutional: Appearance: Normal appearance. She is well-developed. Genitourinary: Vulva normal. Breasts: Breasts are soft. Right: Normal. Left: Normal. Cardiovascular: Rate and Rhythm: Normal rate and [...] nursing note reviewed. Exam conducted with a assistant boiler operator present. Vitals: Estimated body mass index is 41.62 kg/m as calculated from the following: Height as of 24: 5' 7 . Weight as of this encounter: 265 lb 12 oz. BP: 124/76 No LMP recorded. Patient is . ASSESSMENT & PLAN ICD-10-CM 1. Screening, , for anatomic survey Z36.89 US OB 14+ weeks anatomy scan US OB 14+ weeks anatomy scan 2. Well woman exam with routine gynecological exam Z01.419 Pap Smear 3. STD exposure Z20.2 SURESWAB(R) ADVANCED VAGINITIS PLUS, TMA CHLAMYDIA TRACHOMATIS (GENITO/STI) Neisseria gonorrhea DNA probe, direct 4. Vaginal discharge N89.8 SURESWAB(R) ADVANCED VAGINITIS PLUS, TMA CHLAMYDIA TRACHOMATIS (GENITO/STI) Neisseria gonorrhea DNA probe, direct 5. Second trimester Z34.92 6. 17 weeks gestation of Z3A.17 POCT urinalysis dipstick manually resulted Alpha fetoprotein, maternal Alpha fetoprotein, maternal Return OB/Annual Exam: Patient presents today for a annual exam/routine obstetrics appointment. Patient is currently 17w0d . Patient states she is doing well but has complaints of nausea in the morning. Pap and cultures was obtained without difficulty and patient was given orders for anatomy scan and msAFP to be obtained. Orders Placed This Encounter Procedures US OB 14+ weeks anatomy scan CHLAMYDIA TRACHOMATIS (GENITO/STI) Neisseria gonorrhea DNA probe, direct Alpha fetoprotein, maternal POCT urinalysis dipstick manually resulted Follow Up: Patient is to schedule annual exam for next year and return to office in 4 weeks for OB appointment. Documented by Lindsey Dong LPN on behalf of: Aditya Cervantes DO documented in this encounter [facility] 08-29-2024 History of Presen t illness Narrative Reason for Appointment: Patient ID: Estefania Cedeño is a 29 y.o. female who presents for Routine Visit Patient presents today for Return OB appointment. MEDICATIONS Current Outpatient Medications Medication Instructions Vit-Fe Fumarate-FA (PNV Plus Multivitamin) 27-1 MG [...] nursing note reviewed. Exam conducted with a assistant boiler operator present. Vitals: Estimated body mass index is 41.47 kg/m as calculated from the following: Height as of 01/09/24: 5' 7 . Weight as of this encounter: 264 lb 12.8 oz. BP: 122/66 No LMP recorded. Patient is . ASSESSMENT & PLAN ICD-10-CM 1. First trimester Z34.91 POCT urinalysis dipstick manually resulted 2. 13 weeks gestation of Z3A.13 3. History of gestational diabetes Z86.32 CANCELED: US OB follow up transabdominal approach New OB: Patient presents today for 1st time obstetrics appointment with provider. Patient is currently 13w0d . Patients history has been reviewed in great detail including any potential risks. Patient stated she currently has no complaints. Expectations throughout regarding labs, ultrasounds, and appointments have been discussed with the patient in detail. It was reiterated that the patient is to drink 6-8 glasses of water a day, eat 6 small meals a day, do not consume raw or undercooked meat, and stay away from [facility]. Patient has been consulted regarding any further do's and don'ts of . Patient voiced understanding and all questions and concerns were answered. Orders Placed This Encounter Procedures POCT urinalysis dipstick manually resulted Follow Up: Patient is to return in 4 weeks for routine OB appointment. Documented by Lindsey Dong LPN on behalf of: Aditya Cervantes DO documented in this encounter [facility] 06-14-2024 History of Presen t illness Narrative [...] of: CAYLA Kwok documented in this encounter [facility] 05-17-2024 History of Presen t illness Narrative [...] of CAYLA Kwok documented in this encounter [facility] 04-18-2024 History of Presen t illness Narrative [...] of: CAYLA Kwok documented in this encounter [facility] 02-21-2024 History of Presen t illness Narrative [...] of: CAYLA Kwok documented in this encounter [facility] 07-15-2023 History of Presen t illness Narrative [...] Aditya Cervantes DO documented in this encounter [facility] 09-23-2020 Evaluation note Includes: Assessments for all patient encounters Findings Anxiety disorder NOS BH Telebehavioral H ealth with Jammie RIBEIROW 09/23/2020 Assessment of visit for: screening for human immunodeficiency virus Medical Established Patient with Miguel Holley [facility] 09/23/2020 Diabetes Risk Test Score was three score 09/23/2020 Medical Established Patient with Miguel Holley [facility] 09/23/2020 Morbid obesity Medical Established Patient with Miguel Holley [facility] 09/23/2020 Routine adult history and physical (18-64 yrs) without abnormal findings Medical Established Patient with Miguel Holley [facility] 09/23/2020 Z68.41 - Body mass index [BMI]40.0-44.9, adult Medical Established Patient with Miguel Holley [facility] 09/23/2020 Cough Telemedicine Establi sted Patient with Miguel Holley [facility] 03/19/2020 Exposure to a viral disease Telemedicine Establisted Patient with Miguel Holley [facility] 03/19/2020 Obesity due to excess calories Telemedic ine Establisted Patient with Miguel Holley [facility] 03/19/2020 Z68.37 - Body mass index [BM I] 37.0-37.9, adult Telemedicine Establisted Patient with Miguel Holley [facility] 03/19/2020 Obesity due to excess calories Medical E stablished Patient with Miguel Holley [facility] 03/05/2020 Z68.37 - Body mass index [BM I] 37.0-37.9, adult Medical Established Patient with Miguel Holley [facility] 03/05/2020 Obesity due to excess calories Medical E stablished Patient with Poly Salvador [facility] 12/05/2019 R21 - Rash and other nonspecific skin eruption Medical Established Patient with Poly Salvador [facility] 12/05/2019 Z68.35 - Body mass index (BM I) 35.0-35.9, adult Medical Established Patient with Poly Salvador [facility] 12/05/2019 Obesity due to excess calories Medical E stablished Patient with Poly Salvador [facility] 11/06/2019 Z68.36 - Body mass index (BM I) 36.0-36.9, adult Medical Established Patient with Poly Salvador [facility] 11/06/2019 Obesity due to excess calories Medical E stablished Patient with Poly Franoc RN NICU 10/12/2019 Z68.38 - Body mass index (BM I) 38.0-38.9, adult Medical Established Patient with Poly Franco RN NICU 10/12/2019 L25.5 - Unspecified contact dermatitis due to plants, except food Medical Established Patient with Poly Franco RN NICU 09/14/2019 Obesity due to excess calories Medical E stablished Patient with Poly Franco RN NICU 09/14/2019 Z68.37 - Body mass index (BM I) 37.0-37.9, adult Medical Established Patient with Poly Franco RN NICU 09/14/2019 L25.5 - Unspecified contact dermatitis due to plants, except food Telemedicine with Poly Franco RN NICU 09/11/2019 Obesity due to excess calories Telemedic ine with Poly Franco RN NICU 09/11/2019 Z68.37 - Body mass index (BM I) 37.0-37.9, adult Telemedicine with Poly Franco RN NICU 09/11/2019 Dermatitis due to contact wi th poison spencer Telemedicine with Poly Franco RN NICU 09/05/2019 Obesity due to excess calories Telemedic ine with Poly Franco RN NICU 09/05/2019 Z68.37 - Body mass index (BM I) 37.0-37.9, adult Telemedicine with Poly Franco RN NICU 09/05/2019 Obesity due to excess calories Medical E stablished Patient with Miguel Holley RN NICU 08/17/2019 Z68.37 - Body mass index (BM I) 37.0-37.9, adult Medical Established Patient with Miguel Anguloen RN NICU 08/17/2019 Generalized anxiety disorder BH Establis hed Patient with Anh VIDAL 07/06/2019 Anxiety disorder NOS Medical New Patient with Allyson Everett RN NICU 07/06/2019 Depression Medical New Patient with Allyson Everett RN NICU 07/06/2019 Diabetes Risk Test Score was one score Medical New Patient with Allyson Everett RN NICU 07/06/2019 Idiopathic insomnia Medical New Patient with Allyson Everett RN NICU 07/06/2019 Obesity due to excess calories Medical N ew Patient with Allyson [place] RN NICU 07/06/2019 Z68.39 - Body mass index (BM I) 39.0-39.9 adult Medical New Patient with Allyson Everett RN NICU 07/06/2019 [facility] Work Phone: [phone] History general Narrative - Reported Includes: Medical History in patient's chart Description Last Updated Not currently nursing 11/06/2019 Not 11/06/2019 No reported medical history or no signif icant history 07/06/2019 [facility] Work Phone: Evaluation note Includes: Assessments for all patient encounters Findings Encounter Date Assessment of visit for: cristóbal beening for human immunodeficiency virus Medical Established Patient with Miguel Holley [facility] 09/23/2020 Diabetes Risk Test Score was three score 09/23/2020 Medical Established Patient with Miguel Holley [facility] 09/23/2020 Morbid obesity Medical Established Patient with Miguel Holley [facility] 09/23/2020 Routine adult history and ph ysical (18-64 yrs) without abnormal findings Medical Established Patient with Miguel Holley [facility] 09/23/2020 Z68.41 - Body mass index [BMI]40.0-44.9, adult Medical Established Patient with Miguel Holley [facility] 09/23/2020 Cough Telemedicine Establi sted Patient with Miguel Holley [facility] 03/19/2020 Exposure to a viral disease Telemedicine Establisted Patient with Miguel Holley [facility] 03/19/2020 Obesity due to excess calories Telemedic ine Establisted Patient with Miguel Holley [facility] 03/19/2020 Z68.37 - Body mass index [BM I] 37.0-37.9, adult Telemedicine Establisted Patient with Miguel Holley [facility] 03/19/2020 Obesity due to excess calories Medical E stablished Patient with Miguel Holley [facility] 03/05/2020 Z68.37 - Body mass index [BM I] 37.0-37.9, adult Medical Established Patient with Miguel Holley [facility] 03/05/2020 Obesity due to excess calories Medical E stablished Patient with Poly Salvador RN NICU 12/05/2019 R21 - Rash and other nonspec ific skin eruption Medical Established Patient with Poly Salvador RN NICU 12/05/2019 Z68.35 - Body mass index (BM I) 35.0-35.9, adult Medical Established Patient with Poly Salvador RN NICU 12/05/2019 Obesity due to excess calories Medical E stablished Patient with Poly Salvador RN NICU 11/06/2019 Z68.36 - Body mass index (BM I) 36.0-36.9, adult Medical Established Patient with Poly Wagonerle RN NICU 11/06/2019 Obesity due to excess calories Medical E stablished Patient with Poly Wagonerle RN NICU 10/12/2019 Z68.38 - Body mass index (BM I) 38.0-38.9, adult Medical Established Patient with Poly Wagonerle RN NICU 10/12/2019 L25.5 - Unspecified contact dermatitis due to plants, except food Medical Established Patient with Poly Wagonerle RN NICU 09/14/2019 Obesity due to excess calories Medical E stablished Patient with Poly Salvador RN NICU 09/14/2019 Z68.37 - Body mass index (BM I) 37.0-37.9, adult Medical Established Patient with Poly Wagonerle RN NICU 09/14/2019 L25.5 - Unspecified contact dermatitis due to plants, except food Telemedicine with Poly Franco [facility] 09/11/2019 Obesity due to excess calories Telemedicine with Poly Franco [facility] 09/11/2019 Z68.37 - Body mass index (BM I) 37.0-37.9, adult Telemedicine with Poly Franco [facility] 09/11/2019 Dermatitis due to contact wi th poison spencer Telemedicine with Poly Franco RN NICU 09/05/2019 Obesity due to excess calories Telemedicine with Poly Wagonerle [facility] 09/05/2019 Z68.37 - Body mass index (BM I) 37.0-37.9, adult Telemedicine with Poly Franco RN NICU 09/05/2019 Obesity due to excess calories Medical E stablished Patient with Miguel Holley [facility] 08/17/2019 Z68.37 - Body mass index (BM I) 37.0-37.9, adult Medical Established Patient with Miguel Dell RN NICU 08/17/2019 Generalized anxiety disorder BH Establis hed Patient with Anh VIDAL 07/06/2019 Anxiety disorder NOS Medical New Patient with Allyson Everett RN NICU 07/06/2019 Depression Medical New Patient with Allyson [place] RN NICU 07/06/2019 Diabetes Risk Test Score was one score M edical New Patient with Allyson Everett RN NICU 07/06/2019 Idiopathic insomnia Medical New Patient with Allyson [place] RN NICU 07/06/2019 Obesity due to excess calories Medical N ew Patient with Allyson [place] RN NICU 07/06/2019 Z68.39 - Body mass index (BM I) 39.0-39.9 adult Medical New Patient with Allyson Floyd DIANELYS 07/06/2019 [facility] Work Phone: Evaluation note* Diagnosis Nausea vomiting and diarrhea- Primary Nausea with vomiting Generalized abdominal pain Abdominal pain, generalized documented in this encounter [facility] Phone: evaluation note* Diagnosis Women's annual routine gynecological examination documented in this encounter [facility] Phone: evaluation note* Diagnosis Women's annual routine gynecological examination Intrauterine contraceptive device threads lost, initial encounter documented in this encounter [employer]* Diagnosis Second trimester state, incidental documented [...] [facility] Diagnosis First trimester state, incidental 13 weeks gestation of History of gestational diabetes Personal history of other genital system and obstetric disorders [facility] Diagnosis Screening, , for anatomic survey Encounter for anatomic survey Well woman exam with routine gynecological exam Routine gynecological examination STD exposure Vaginal discharge Leukorrhea, not specified as infective Second trimester state, incidental 17 weeks gestation of [facility] Diagnosis Second trimester state, incidental 21 weeks gestation of [facility] Diagnosis Dizziness- Primary Dizziness and giddiness 25 weeks gestation of ([facility]) Second trimester ([facility]) state, incidental History of gestational diabetes Personal history of other genital system and obstetric disorders Diabetes mellitus screening Screening for diabetes mellitus [facility] Diagnosis Elevated glucose tolerance test Impaired glucose tolerance test History of gestational diabetes Personal history of other genital system and obstetric disorders Third trimester ([facility]) state, incidental 28 weeks gestation of ([facility]) Gestational diabetes mellitus (GDM), antepartum, gestational diabetes method of control unspecified ([facility]) [facility] Diagnosis Third trimester ([facility]) state, incidental [facility] Diagnosis Third trimester ([facility]) state, incidental 32 weeks gestation of ([facility]) Gestational diabetes mellitus (GDM), antepartum, gestational diabetes method of control unspecified ([facility]) Hyperglycemia during ([facility]) [facility] Narrative History of Present Illness not supported for this document type No History of Present Illness [facility] Work Phone: Hospital Discharge instructions* Attachments The following attachments cannot be sent through Care Everywhere. * Abdominal Pain (Burmese) * Nausea and Vomiting (Burmese) * Diarrhea (Burmese) [facility] Instructions Instructions not supported for this document type No Instructions [facility] Work Phone: Patient problem outcome Narrative Includes: Evaluations & Outcomes for active Goals No Outcomes [facility] Work Phone: Reason for referral (narrative)No Reason for Referral [facility] Work Phone: Review of systems Narrative - Reported Review of Systems not supported for this document type No Review of Systems [facility] Work Phone: Summary Purpose Family History No Family History Records Found Description Last Updated Maternal history of rheumatoid arthritis 07/06/2019 Maternal history of rheumatologic disord er Fibromyalgia 07/06/2019 Maternal history of systemic lupus eryth ematosus 07/06/2019 Paternal history of type 1 diabetes marino itus 07/06/2019 Advance Directives No Advanced Directives Records FoundDocuments on File Type Date Recorded Patient Operations Supervisor Expl anation Advance Directives and Living Will Power of Dry Dip Worker Documents on File Type Date Recorded Patient Operations Supervisor Expl anation ACP-Advance Directive ACP-Power of Dry Dip Worker Documents on File Type Date Recorded Patient Operations Supervisor Expl anation Advance Directives and Living Will Power of Dry Dip Worker Date Activated Date Inactivated Comments 01/20/2023 7:21 AM 01/20/2023 3:02 PM Reason for Referral No Reason for Referral [...] Depression Medical New Patient with Allyson Floyd RN NICU 07/06/2019 Diabetes Risk Test Score was one score Medical New Patient with Allyson Floyd RN NICU 07/06/2019 Idiopathic insomnia Medical New Patient with Allyson Floyd RN NICU 07/06/2019 Obesity due to excess calories Medical N ew Patient with Allyson Nye RN NICU 07/06/2019 Z68.39 - Body mass index (BM I) 39.0-39.9 adult Medical New Patient with Allyson Floyd RN NICU 07/06/2019 Findings Encounter Date Obesity due to excess calories Medical E stablished Patient with Poly Wagonerle RN NICU 10/12/2019 Z68.38 - Body mass index (BM I) 38.0-38.9, adult Medical Established Patient with Polykamryn Wagonerle RN NICU 10/12/2019 L25.5 - Unspecified contact dermatitis due to plants, except food Medical Established Patient with Polykamryn Wagonerle RN NICU 09/14/2019 Obesity due to excess calories Medical E stablished Patient with Poly Salvador RN NICU 09/14/2019 Z68.37 - Body mass index (BM I) 37.0-37.9, adult Medical Established Patient with Poly Salvador RN NICU 09/14/2019 L25.5 - Unspecified contact dermatitis due to plants, except food Telemedicine with Poly Wagonerle RN NICU 09/11/2019 Obesity due to excess calories Telemedicine with Poly Wagonerle RN NICU 09/11/2019 Z68.37 - Body mass index (BM I) 37.0-37.9, adult Telemedicine with Poly Wagonerle RN NICU 09/11/2019 Dermatitis due to contact wi th poison spencer Telemedicine with Poly Franco RN NICU 09/05/2019 Obesity due to excess calories Telemedicine with Poly Franco RN NICU 09/05/2019 Z68.37 - Body mass index (BM I) 37.0-37.9, adult Telemedicine with Poly Franco RN NICU 09/05/2019 Obesity due to excess calories Medical E stablished Patient with Miguel Holley RN NICU 08/17/2019 Z68.37 - Body mass index (BM I) 37.0-37.9, adult Medical Established Patient with Miguel Holley RN NICU 08/17/2019 Generalized anxiety disorder BH Establis hed Patient with Anhbrad Virk [employer]ST[employer]ER-S 07/06/2019 Anxiety disorder NOS Medical New Patient with Allyson Muskegon RN NICU 07/06/2019 Depression Medical New Patient with Allyson Muskegon RN NICU 07/06/2019 Diabetes Risk Test Score was one score Medical New Patient with Allyson Muskegon RN NICU 07/06/2019 Idiopathic insomnia Medical New Patient with Allyson Muskegon RN NICU 07/06/2019 Obesity due to excess calories Medical N ew Patient with Allyson Muskegon RN NICU 07/06/2019 Z68.39 - Body mass index (BM I) 39.0-39.9 adult Medical New Patient with Allyson Muskegon RN NICU 07/06/2019 Findings Encounter Date Obesity due to excess calories Medical E stablished Patient with Miguel Holley RN NICU 08/17/2019 Z68.37 - Body mass index (BM I) 37.0-37.9, adult Medical Established Patient with Miguel Holley RN NICU 08/17/2019 Generalized anxiety disorder BH Establis hed Patient with Anh Virk [employer] INST[employer]ER-S 07/06/2019 Anxiety disorder NOS Medical New Patient with Allyson Muskegon RN NICU 07/06/2019 Depression Medical New Patient with Allyson Everett RN NICU 07/06/2019 Diabetes Risk Test Score was one score Medical New Patient with Allyson Muskegon RN NICU 07/06/2019 Idiopathic insomnia Medical New Patient with Allyson Muskegon RN NICU 07/06/2019 Obesity due to excess calories Medical N ew Patient with Allyson Muskegon RN NICU 07/06/2019 Z68.39 - Body mass index (BM I) 39.0-39.9 adult Medical New Patient with Allyson Everett RN NICU 07/06/2019 Findings Encounter Date Dermatitis due to contact wi th poison spencer Telemedicine with Poly Salvador [facility] 09/05/2019 Obesity due to excess calories Telemedicine with Poly Salvador [facility] 09/05/2019 Z68.37 - Body mass index (BM I) 37.0-37.9, adult Telemedicine with Poly Wagonerle [facility] 09/05/2019 Obesity due to excess calories Medical E stablished Patient with Miguel Holley [facility] 08/17/2019 Z68.37 - Body mass index (BM I) 37.0-37.9, adult Medical Established Patient with Miguel Holley [facility] 08/17/2019 Generalized anxiety disorder BH Establis hed Patient with Anh VIDAL 07/06/2019 Anxiety disorder NOS Medical New Patient with Allyson Nye RN NICU 07/06/2019 Depression Medical New Patient with Allyson Nye RN NICU 07/06/2019 Diabetes Risk Test Score was one score Medical New Patient with Allyson Nye RN NICU 07/06/2019 Idiopathic insomnia Medical New Patient with Allyson Nye [facility] 07/06/2019 Obesity due to excess calories Medical N ew Patient with Allyson Everett [facility] 07/06/2019 Z68.39 - Body mass index (BM I) 39.0-39.9 adult Medical New Patient with Allyson Floyd [facility] 07/06/2019 Findings Encounter Date L25.5 - Unspecified contact dermatitis due to plants, except food Telemedicine with Poly Franco [facility] 09/11/2019 Obesity due to excess calories Telemedicine with Poly Wagonerle [facility] 09/11/2019 Z68.37 - Body mass index (BM I) 37.0-37.9, adult Telemedicine with Poly Salvador [facility] 09/11/2019 Dermatitis due to contact wi th poison spencer Telemedicine with Poly Salvador [facility] 09/05/2019 Obesity due to excess calories Telemedicine with Poly Salvador [facility] 09/05/2019 Z68.37 - Body mass index (BM I) 37.0-37.9, adult Telemedicine with Poly Salvador [facility] 09/05/2019 Obesity due to excess calories Medical E stablished Patient with Miguel Holley [facility] 08/17/2019 Z68.37 - Body mass index (BM I) 37.0-37.9, adult Medical Established Patient with Miguel Holley [facility] 08/17/2019 Generalized anxiety disorder BH Establis hed Patient with Anh RODAS-S 07/06/2019 Anxiety disorder NOS Medical New Patient with Allyson Floyd RN NICU 07/06/2019 Depression Medical New Patient with Allyson Floyd RN NICU 07/06/2019 Diabetes Risk Test Score was one score Medical New Patient with Allyson Floyd RN NICU 07/06/2019 Idiopathic insomnia Medical New Patient with Allyson Floyd RN NICU 07/06/2019 Obesity due to excess calories Medical N ew Patient with Allyson Everett RN NICU 07/06/2019 Z68.39 - Body mass index (BM I) 39.0-39.9 adult Medical New Patient with Allyson Floyd RN NICU 07/06/2019 Findings Encounter Date L25.5 - Unspecified contact dermatitis due to plants, except food Medical Established Patient with Poly Wagonerle [facility] 09/14/2019 Obesity due to excess calories Medical E stablished Patient with Poly Salvador [facility] 09/14/2019 Z68.37 - Body mass index (BM I) 37.0-37.9, adult Medical Established Patient with Poly Wagonerle [facility] 09/14/2019 L25.5 - Unspecified contact dermatitis due to plants, except food Telemedicine with Poly Salvador [facility] 09/11/2019 Obesity due to excess calories Telemedicine with Poly Salvador [facility] 09/11/2019 Z68.37 - Body mass index (BM I) 37.0-37.9, adult Telemedicine with Poly [facility] 09/11/2019 Dermatitis due to contact wi th poison spencer [facility] Obesity due to excess calories Telemedicine with Poly Wagonerle [facility] 09/05/2019 Z68.37 - Body mass index (BM I) 37.0-37.9, adult Telemedicine with Poly Salvador [facility] 09/05/2019 Obesity due to excess calories Medical E stablished Patient with Miguel Holley [facility] 08/17/2019 Z68.37 - Body mass index (BM I) 37.0-37.9, adult Medical Established Patient with Miguel Dell [facility] 08/17/2019 Generalized anxiety disorder BH Establis hed Patient with Anh Moose RODAS-S 07/06/2019 Anxiety disorder NOS Medical New Patient with Allyson Floyd RN NICU 07/06/2019 Depression Medical New Patient with Allyson Floyd RN NICU 07/06/2019 Diabetes Risk Test Score was one score Medical New Patient with Allyson Floyd RN NICU 07/06/2019 Idiopathic insomnia Medical New Patient with Allyson Floyd RN NICU 07/06/2019 Obesity due to excess calories Medical N ew Patient with Allyson Floyd RN NICU 07/06/2019 Z68.39 - Body mass index (BM I) 39.0-39.9 adult Medical New Patient with Allyson Floyd RN NICU 07/06/2019 Findings Encounter Date Obesity due to excess calories Medical E stablished Patient with Poly Wagonerle RN NICU 11/06/2019 Z68.36 - Body mass index (BM I) 36.0-36.9, adult Medical Established Patient with Poly Wagonerle RN NICU 11/06/2019 Obesity due to excess calories Medical E stablished Patient with Polykamryn Wagonerle RN NICU 10/12/2019 Z68.38 - Body mass index (BM I) 38.0-38.9, adult Medical Established Patient with Poylkamryn Wagonerle [facility] 10/12/2019 L25.5 - Unspecified contact dermatitis due to plants, except food Medical Established Patient with Poly Wagonerle [facility] 09/14/2019 Obesity due to excess calories Medical E stablished Patient with Poly Salvador [facility] 09/14/2019 Z68.37 - Body mass index (BM I) 37.0-37.9, adult Medical Established Patient with Polykamryn Wagonerle [facility] 09/14/2019 L25.5 - Unspecified contact dermatitis due to plants, except food Telemedicine with Polykamryn Wagonerle [facility] 09/11/2019 Obesity due to excess calories Telemedicine with Poly Wagonerle [facility] 09/11/2019 Z68.37 - Body mass index (BM I) 37.0-37.9, adult Telemedicine with Poly Salvador [facility] 09/11/2019 Dermatitis due to contact wi th poison spencer Telemedicine with Poly Salvador [facility] 09/05/2019 Obesity due to excess calories Telemedicine with Poly Salvador [facility] 09/05/2019 Z68.37 - Body mass index (BM I) 37.0-37.9, adult Telemedicine with Poly Salvador RN NICU 09/05/2019 Obesity due to excess calories Medical E stablished Patient with Miguel Dell [facility] 08/17/2019 Z68.37 - Body mass index (BM I) 37.0-37.9, adult Medical Established Patient with Miguel Holley [facility] 08/17/2019 Generalized anxiety disorder BH Establis hed Patient with Anh VIDAL 07/06/2019 Anxiety disorder NOS Medical New Patient with Allyson Floyd RN NICU 07/06/2019 Depression Medical New Patient with Allyson Floyd RN NICU 07/06/2019 Diabetes Risk Test Score was one score Medical New Patient with Allyson Floyd RN NICU 07/06/2019 Idiopathic insomnia Medical New Patient with Allyson Floyd RN NICU 07/06/2019 Obesity due to excess calories Medical N ew Patient with Allyson Floyd RN NICU 07/06/2019 Z68.39 - Body mass index (BM I) 39.0-39.9 adult Medical New Patient with Allyson Floyd RN NICU 07/06/2019 Findings Encounter Date Obesity due to excess calories Medical E stablished Patient with Poly Wagonerle RN NICU 12/05/2019 R21 - Rash and other nonspec [facility] skin eruption Medical Established Patient with Poly Salvador RN NICU 12/05/2019 Z68.35 - Body mass index (BM I) 35.0-35.9, adult Medical Established Patient with Poly Wagonerle RN NICU 12/05/2019 Obesity due to excess calories Medical E stablished Patient with Poly Salvador RN NICU 11/06/2019 Z68.36 - Body mass index (BM I) 36.0-36.9, adult Medical Established Patient with Poly Salvador RN NICU 11/06/2019 Obesity due to excess calories Medical E stablished Patient with Poly Salvador RN NICU 10/12/2019 Z68.38 - Body mass index (BM I) 38.0-38.9, adult Medical Established Patient with Poly Salvador RN NICU 10/12/2019 L25.5 - Unspecified contact dermatitis due to plants, except food Medical Established Patient with Poly Salvador RN NICU 09/14/2019 Obesity due to excess calories Medical E stablished Patient with Poly Salvador RN NICU 09/14/2019 Z68.37 - Body mass index (BM I) 37.0-37.9, adult Medical Established Patient with Poly Salvador RN NICU 09/14/2019 L25.5 - Unspecified contact dermatitis due to plants, except food Telemedicine with Poly Salvador RN NICU 09/11/2019 Obesity due to excess calories Telemedicine with Poly Salvador RN NICU 09/11/2019 Z68.37 - Body mass index (BM I) 37.0-37.9, adult Telemedicine with Poly Salvador RN NICU 09/11/2019 Dermatitis due to contact wi th poison spencer Telemedicine with Polykamryn Wagonerle RN NICU 09/05/2019 Obesity due to excess calories Telemedicine with Poly Wagonerle RN NICU 09/05/2019 Z68.37 - Body mass index (BM I) 37.0-37.9, adult Telemedicine with Poly Wagonerle RN NICU 09/05/2019 Obesity due to excess calories Medical E stablished Patient with Miguel Holley RN NICU 08/17/2019 Z68.37 - Body mass index (BM I) 37.0-37.9, adult Medical Established Patient with Miguel Holley RN NICU 08/17/2019 Generalized anxiety disorder BH Establis hed Patient with Anh VIDAL 07/06/2019 Anxiety disorder NOS Medical New Patient with Allyson Floyd RN NICU 07/06/2019 Depression Medical New Patient with Allyson Nye RN NICU 07/06/2019 Diabetes Risk Test Score was one score Medical New Patient with Allysonheidi Floyd RN NICU 07/06/2019 Idiopathic insomnia Medical New Patient with Allysonheidi Floyd RN NICU 07/06/2019 Obesity due to excess calories Medical N ew Patient with Allyson Nye RN NICU 07/06/2019 Z68.39 - Body mass index (BM I) 39.0-39.9 adult Medical New Patient with Allyson Floyd RN NICU 07/06/2019 Findings Encounter Date Obesity due to excess calories Medical E stablished Patient with Miguel Holley RN NICU 03/05/2020 Z68.37 - Body mass index [BM I] 37.0-37.9, adult Medical Established Patient with Miguel Holley [facility] 03/05/2020 Obesity due to excess calories Medical E stablished Patient with Poly Wagonerle RN NICU 12/05/2019 R21 - Rash and other nonspec [facility] skin eruption Medical Established Patient with Poly Salvador RN NICU 12/05/2019 Z68.35 - Body mass index (BM I) 35.0-35.9, adult Medical Established Patient with Poly Salvador RN NICU 12/05/2019 Obesity due to excess calories Medical E stablished Patient with Poly Salvador RN NICU 11/06/2019 Z68.36 - Body mass index (BM I) 36.0-36.9, adult Medical Established Patient with Poly Salvador RN NICU 11/06/2019 Obesity due to excess calories Medical E stablished Patient with Poly Salvador RN NICU 10/12/2019 Z68.38 - Body mass index (BM I) 38.0-38.9, adult Medical Established Patient with Poly Salvador RN NICU 10/12/2019 L25.5 - Unspecified contact dermatitis due to plants, except food Medical Established Patient with Poly Salvador RN NICU 09/14/2019 Obesity due to excess calories Medical E stablished Patient with Poly Salvador RN NICU 09/14/2019 Z68.37 - Body mass index (BM I) 37.0-37.9, adult Medical Established Patient with Poly Salvador RN NICU 09/14/2019 L25.5 - Unspecified contact dermatitis due to plants, except food Telemedicine with Poly Wagonerle RN NICU 09/11/2019 Obesity due to excess calories Telemedicine with Poly Wagonerle RN NICU 09/11/2019 Z68.37 - Body mass index (BM I) 37.0-37.9, adult Telemedicine with Poly Franco RN NICU 09/11/2019 Dermatitis due to contact wi th poison spencer Telemedicine with Poly Wagonerle RN NICU 09/05/2019 Obesity due to excess calories Telemedicine with Poly Wagonerle RN NICU 09/05/2019 Z68.37 - Body mass index (BM I) 37.0-37.9, adult Telemedicine with Poly Wagonerle RN NICU 09/05/2019 Obesity due to excess calories Medical E stablished Patient with Miguel Dell RN NICU 08/17/2019 Z68.37 - Body mass index (BM I) 37.0-37.9, adult Medical Established Patient with Miguel Dell RN NICU 08/17/2019 Generalized anxiety disorder BH Establis hed Patient with Anh VIDAL 07/06/2019 Anxiety disorder NOS Medical New Patient with Allyson Muskegon RN NICU 07/06/2019 Depression Medical New Patient with Allyson Muskegon RN NICU 07/06/2019 Diabetes Risk Test Score was one score Medical New Patient with Allyson Muskegon RN NICU 07/06/2019 Idiopathic insomnia Medical New Patient with Allyson Everett RN NICU 07/06/2019 Obesity due to excess calories Medical N ew Patient with Allyson Muskegon RN NICU 07/06/2019 Z68.39 - Body mass index (BM I) 39.0-39.9 adult Medical New Patient with Allyson Everett RN NICU 07/06/2019 Findings Encounter Date Cough Telemedicine Establi sted Patient with Miguel Dell RN NICU 03/19/2020 Exposure to a viral disease Telemedicine Establisted Patient with Miguel Holley [facility] 03/19/2020 Obesity due to excess calories Telemedic ine Establisted Patient with Miguel Holley [facility] 03/19/2020 Z68.37 - Body mass index [BM I] 37.0-37.9, adult Telemedicine Establisted Patient with Miguel Holley [facility] 03/19/2020 Obesity due to excess calories Medical E stablished Patient with Miguel Holley [facility] 03/05/2020 Z68.37 - Body mass index [BM I] 37.0-37.9, adult Medical Established Patient with Miguel Holley [facility] 03/05/2020 Obesity due to excess calories Medical E stablished Patient with Poly Franco [facility] 12/05/2019 R21 - Rash and other nonspec ific skin eruption Medical Established Patient with Poly Wagonerle [facility] 12/05/2019 Z68.35 - Body mass index (BM I) 35.0-35.9, adult Medical Established Patient with Poly Wagonerle [facility] 12/05/2019 Obesity due to excess calories Medical E stablished Patient with Poly Salvador [facility] 11/06/2019 Z68.36 - Body mass index (BM I) 36.0-36.9, adult Medical Established Patient with Poly Wagonerle RN NICU 11/06/2019 Obesity due to excess calories Medical E stablished Patient with Poly Salvador [facility] 10/12/2019 Z68.38 - Body mass index (BM I) 38.0-38.9, adult Medical Established Patient with Poly Salvador [facility] 10/12/2019 L25.5 - Unspecified contact dermatitis due to plants, except food Medical Established Patient with Poly Salvador [facility] 09/14/2019 Obesity due to excess calories Medical E stablished Patient with Poly Salvador [facility] 09/14/2019 Z68.37 - Body mass index (BM I) 37.0-37.9, adult Medical Established Patient with Poly Salvador [facility] 09/14/2019 L25.5 - Unspecified contact dermatitis due to plants, except food Telemedicine with Polykamryn Wagonerle [facility] 09/11/2019 Obesity due to excess calories Telemedicine with Polykamryn Wagonerle [facility] 09/11/2019 Z68.37 - Body mass index (BM I) 37.0-37.9, adult Telemedicine with Poly Salvador [facility] 09/11/2019 Dermatitis due to contact wi th poison spencer Telemedicine with Poly Franco [facility] 09/05/2019 Obesity due to excess calories Telemedicine with Poly Franco [facility] 09/05/2019 Z68.37 - Body mass index (BM I) 37.0-37.9, adult Telemedicine with Poly Franco RN NICU 09/05/2019 Obesity due to excess calories Medical E stablished Patient with Miguel Holley [facility] 08/17/2019 Z68.37 - Body mass index (BM I) 37.0-37.9, adult Medical Established Patient with Miguel Holley RN NICU 08/17/2019 Generalized anxiety disorder BH Establis hed Patient with Anh VIDAL 07/06/2019 Anxiety disorder NOS Medical New Patient with Allyson Floyd RN NICU 07/06/2019 Depression Medical New Patient with Allyson Floyd RN NICU 07/06/2019 Diabetes Risk Test Score was one score Medical New Patient with Allyson Floyd RN NICU 07/06/2019 Idiopathic insomnia Medical New Patient with Allyson Floyd RN NICU 07/06/2019 Obesity due to excess calories Medical N ew Patient with Allyson Floyd RN NICU 07/06/2019 Z68.39 - Body mass index (BM I) 39.0-39.9 adult Medical New Patient with Allyson Floyd [facility] 07/06/2019 Diagnosis COVID-19 Fatty liver Other [...] Everywhere. * Coronavirus Disease (COVID-19): General Info (Burmese) documented in this encounter Additional Source Comments INFORMATION SOURCE (unrecogn ized section and content) DATE CREATED AUTHOR 11/24/2017 [facility] DATE CREATED AUTHOR AUTHOR'S ORGANIZ ATION 08/26/2018 [facility] DATE CREATED AUTHOR AUTHOR'S ORGANIZ ATION 09/24/2020 [facility] DATE CREATED AUTHOR AUTHOR'S ORGANIZ ATION 10/30/2024 [facility] DATE CREATED AUTHOR AUTHOR'S ORGANIZ ATION 01/10/2025 [facility] Specialists EPIC Evaluations & [...] US TRANSVAGINAL, NON OB Dana Akins MD [address] [place] [id number] [facility] [address] [place] [address] Reason Comments Emesis multiple episodes si nce [...] Care Teams (unrecognized sec tion and content) Licensed Massage Practitioner Relationship Specialty Start Date End Date Miguel Holley APRN [facility] PCP - General Family Medicine 04/08/20 Licensed Massage Practitioner Relationship Specialty Start Date End Date Miguel Holley APRN [facility] PCP - General Family Medicine 04/08/20 Licensed Massage Practitioner Relationship Specialty Start Date End Date Miguel Holley APRN [facility] PCP - General Family Medicine 04/08/20 Licensed Massage Practitioner Relationship Specialty Start Date End Date Miguel Holley APRN [facility] PCP - General Family Medicine 04/08/20 FOR [...] BE BASED ON THE PRIMARY CLINICAL RECORDS. [facility] [employer] provides no warranty or guarantee of the accuracy or completeness of information in this document.
[2025-01-19 09:55] VITALS: BP 118/74; PULSE 78
== END 2025-01-19 10:19 | disposition home or self-care (01) ==
LOC: US 08:58 → FBC 08:59
PROVIDERS: Visit Provider Obstetrics & Gynecology
DX: O99.810 Abnormal glucose complicating pregnancy (principal)
CPT/HCPCS: 76818

== ENCOUNTER 2025-01-23 08:14 | Outpatient (OUT) | payer MEDICAID, SELFPAY ==
--- OUTSIDE RECORDS SUMMARY | 2025-01-09 11:10 | XMS_ITS | Encounter Summary ---
Author Organization [facility] Address [address] [place] [address] Care Team Providers Care Ultrasound Technol Name Role Phone Unavailable Primary Care Provider Unavailabl e Reason for Visit * Reason Comments Routine Visit Encounter Details Date Type Department Care Team (Late st Contact Info) Description 01/09/2025 11:10 AM EDT [facility] [address] [phone] Aditya Cervantes DO [address] [place], [place] [id number] Third trimester ([facility]); 32 weeks gestation of ([facility]); Gestational diabetes mellitus (GDM), antepartum, gestational diabetes method of control unspecified ([facility]); Hyperglycemia during ([facility]) Social History Tobacco Use Types Packs/Day Years [...] Excessive growth affecting management of mother, antepartum ([facility]) 12/06/2023 Third trimester ([facility]) 12/06/2023 No Additional Past Medical History Family [...] nursing note reviewed. Exam conducted with a prefabricated houses trimmer present. Vitals: Estimated body mass index is 42.88 kg/m?? as calculated from the following: Height as of 01/10/24: 5' 7 . Weight as of 12/27/24: 273 lb 12.8 oz. BP: No LMP recorded. Patient is . Assessment/Plan Encounter Diagnosis: ICD-10-CM 1. Third trimester ([facility]) Z34.93 POCT urinalysis dipstick manually resulted 2. 32 weeks gestation of ([facility]) Z3A.32 3. Gestational diabetes mellitus (GDM), antepartum, gestational diabetes method of control unspecified ([facility]) O24.419 4. Hyperglycemia during ([facility]) O99.810 US biophysical profile w non stress [...] Care Team (Late st Contact Info) Description 01/23/2025 9:50 AM EDT Routine [facility] [address] [place] [phone] Latasha Padgett PA [address] [place] [address] 02/06/2025 10:10 AM EDT [facility]ine [facility] [address] [place] [phone] Aditya Cervantes DO [address] [place] [address] Scheduled Orders Name Type Priority Associated Diagnoses Orde r Schedule US biophysical profile w non stress test Imaging Routine Hyperglycemia during ([facility]) Expected: 01/09/2025 (Approximate), Expires: 07/12/2025 documented as of this encounter Procedures Procedure Name Priority Date/Time Associated Diagnosis Comments POCT URINALYSIS DIPSTICK Routine 01/09/2025 11:28 AM EDT Third trimester ([facility]) documented in this encounter Results * POCT [...] this encounter Visit Diagnoses Diagnosis Third trimester ([facility]) state, incidental 32 weeks gestation of ([facility]) Gestational diabetes mellitus (GDM), antepartum, gestational diabetes method of control unspecified ([facility]) Hyperglycemia during ([facility]) documented in this encounter
[2025-01-23 08:19] VITALS: BP 126/72; PULSE 105
--- OUTSIDE RECORDS SUMMARY | 2025-01-23 08:19 | XMS_ITS | Encounter Summary ---
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 Name Role Phone Unavailable Primary Care Provider Unavailabl e Encounter Details Date Type Department Care Team (Late st Contact Info) Description 10/28/2023 Clinisync Result Encounter [facility] External Department Unsolicited Bruce Cervantes, [address] [place], [place] [id number] Social History Tobacco Use Types Packs/Day Years [...] 9:50 AM EDT Routine [facility] [address] [place] [address] [place] [address] Latasha Padgett PA [address] [facility] [address] [place], [place] [address] 02/06/2025 10:10 AM EDT Routine [facility] [address] [place] [address] Bruce Cervantes DO [address] [place], [place] [address] documented as of this encounter Procedures Procedure Name Priority Date/Time Associated Diagnosis Comments US OB GROWTH 10/28/2023 9:56 AM EDT documented in this encounter Results * US OB GROWTH (10/28/2023 9:56 AM EDT) Anatomical Region Laterality Modality Other 10/28/2023 9:56 AM EDT Narrative 10/28/2023 9:59 [place] [address] Ultrasound Report Signed Patient: ESTEFANIA CEDEÑO MR#: [id number] : 1995 Acct:[id number] Age/Sex: 28 / F ADM Date: 10/28/23 Loc: US Attending Dr: Bruce Cervantes D.O. Ordering Physician: Bruce Cervantes D.O. Date of Service: 10/28/23 Procedure(s): US OB growth Accession Number(s): [id number] cc: Bruce Cervantes D.O.; Physician,Non-Staff M.DAsiya The [place] [address] Patient Name: ESTEFANIA CEDEÑO MRN: [id number] date: 1995 Sex: F Assigned Patient Location: US Current Patient Location: US Accession/Order Number: [id number] Exam Date: 10/28/2023 08:55 Report Date: 10/28/2023 [...] Dictated By: Kurt Stone M.D. Signed By: 10/28/2359 DD/ TD/TT: Spare Person: Procedure Note Radiology, Radiologist, MD - 10/28/2023 [place] [address] Ultrasound Report Signed Patient: TRINITY CEDEÑO#: [id number] : 1995Acct:[id number] Age/Sex: 28 / FADM Date: 10/28/23 Loc: US Attending Dr: Bruce Cervantes D.O. Ordering Physician: Bruce Cervantes D.O. Date of Service: 10/28/23 Procedure(s): US OB growth Accession Number(s): [id number] cc: Bruce Cervantes D.O.; Physician,Non-Staff Roberto The [place] [address] Patient Name: ESTEFANIA CEDEÑO MRN: [facility]:[id number] date: 1995 Sex: F Assigned Patient Location: US Current Patient Location: US Accession/Order Number: [id number] Exam Date: 10/28/2023 08:55 Report Date: 10/28/2023 [...] Stone M.D. Signed By:10/28/23 0959 DD/ TD/TT: Spare Person: us Bruce Billy DO [facility] Final Result documented in this encounter Visit Diagnoses Not on filedocumented in this encounter
--- OUTSIDE RECORDS SUMMARY | 2025-01-23 08:19 | XMS_ITS | Encounter Summary ---
Author Organization [facility] Address [address] [place] [address] Care Team Providers Care Sales Designer Name Role Phone Unavailable Primary Care Provider Unavailabl e Encounter Details Date Type Department Care Team (Late st Contact Info) Description 08/19/2023 Clinisync Result Encounter [facility] External Department Unsolicited Bruce Cervantes DO [address] [place], [place] [phone] Social History Tobacco Use Types Packs/Day Years [...] 9:50 AM EDT Routine [facility] [address] [place] [address] [place] [address] Latasha Padgett PA [address] [facility] [address] [place], [place] [address] 02/06/2025 10:10 AM EDT Routine [facility] [address] [place] [address] Bruce Cervantes DO [address] [place], [place] 5[address] documented as of this encounter Procedures Procedure Name Priority Date/Time Associated Diagnosis Comments US OB ANATOMY 08/19/2023 11:33 AM EDT documented in this encounter Results * US OB ANATOMY (08/19/2023 11:33 AM EDT) Anatomical Region Laterality Modality Other 08/19/2023 11:3 3 AM EDT Narrative 08/19/2023 11:36 [place] [address] Ultrasound Report Signed Patient: ESTEFANIA CEDEÑO MR#: [id number] : 1995 Acct:[id number] Age/Sex: 28 / F ADM Date: 08/19/23 Loc: NOMS Attending Dr: Bruce Cervantes D.O. Ordering Physician: Bruce Cervantes D.O. Date of Service: 08/19/23 Procedure(s): US OB anatomy Accession Number(s): [id number] cc: Bruce Cervantes D.O.; Physician,Non-Staff M.DAsiya The [place] [address] Patient Name: ESTEFANIA CEDEÑO MRN: [id number] date: 1995 Sex: F Assigned Patient Location: [facility] Current Patient Location: [facility] Accession/Order Number: [id number] Exam Date: 08/19/2023 10:08 Report Date: 08/19/2023 [...] Signed By: 08/19/23 1136 DD/ 1133 TD/TT: Technical Applications Scientist: Procedure Note Radiology, Radiologist, MD - 08/19/2023 [place] [address] Ultrasound Report Signed Patient: TRINITY CEDEÑO#: [id number] : 1995Acct:[id number] Age/Sex: Date: 08/19/23 Loc: NOMS Attending Dr: Bruce Cervantes D.O. Ordering Physician: Bruce Cervantes D.O. Date of Service: 08/19/23 Procedure(s): US OB anatomy Accession Number(s): [id number] cc: Bruce Cervantes D.O.; Physician,Non-Staff Roberto The [address] [address] Patient Name: ESTEFANIA CEDEÑO MRN: [id number] date: 1995 Sex: F Assigned Patient Location: [facility] Current Patient Location: [facility] Accession/Order Number: [id number] Exam Date: 08/19/2023 10:08 Report Date: 08/19/2023 [...] M.D. Signed By:08/19/23 1136 DD/ 1133 TD/TT: Technical Applications Scientist: Brcue Cervantes DO [facility] Final Result documented in this encounter Visit Diagnoses Not on filedocumented in this encounter
--- OUTSIDE RECORDS SUMMARY | 2025-01-23 08:19 | XMS_ITS | Encounter Summary ---
Author Organization [facility] Address [address] [facility], [address] [place] [address] Care Team Providers Care Apprentice Instrument Technician Name Role Phone Billie Sharpe BRADDISHER - RECEIVING SPECIALIST Primary Care Provider Reason for Referral * Imaging (Routine) - Closed Specialty Diagnoses / Procedures Referred By Ryder choi Referred To Contact Radiology Diagnoses Abdominal pain, unspecified abdominal location Pelvic pain in female Procedures CT ABDOMEN PELVIS W WO CONTRAST Additional Contrast? None Aditya Cervantes MD [address] [place] [address] Phone: tel: Referral ID Status Reason Start Date Expiration Date Visits Re quested Visits Authorized [id number] Closed 04/23/2023 04/22/2024 1 1 Encounter Details Date Type Department Care Team (Late st Contact Info) Description 04/23/2023 Transcribe Orders [facility] [address] [place] [address] Aditya Cervantes MD [facility] [place] [address] Abdominal pain, unspecified abdominal location [...] organs documented in this encounter Care Teams Apprentice Instrument Technician Relationship Specialty Start Date End Date Billie Sharpe APRN - RECEIVING SPECIALIST PCP - General Family Medicine 04/08/20 documented as of this encounter
--- OUTSIDE RECORDS SUMMARY | 2025-01-23 08:19 | XMS_ITS | Encounter Summary ---
Author Organization [facility] Address [address] [place] [address] Care Team Providers Care Vp Emerging Media Name Role Phone Unavailable Primary Care Provider Unavailabl e Encounter Details Date Type Department Care Team (Late st Contact Info) Description 01/19/2025 Clinisync Result Encounter [facility] External Department Unsolicited Bruce Cervantes DO [address] [place], [place] [phone] Social History Tobacco Use Types Packs/Day Years [...] 01/23/2025 9:50 AM EDT Routine [facility] [address] [facility] [place] [address] Latasha Padgett PA [address] [facility] [place] [place] [address] 02/06/2025 10:10 AM EDT Routine [facility] [address] [place] [place] [phone] Bruce Cervantes DO [address] [place] [address] documented as of this encounter Procedures Procedure Name Priority Date/Time Associated Diagnosis Comments US OB BPP W NON-STRESS 01/19/2025 2:26 PM EDT documented in this encounter Results * US OB BPP W NON-STRESS (01/19/2025 2:26 PM EDT) Anatomical Region Laterality Modality Other 01/19/2025 2:26 PM EDT Narrative 01/19/2025 2:29 [place] [address] Ultrasound Report Signed Patient: ESTEFANIA CEDEÑO MR#: [id number] : 1995 Acct:[id number] Age/Sex: 29 / F ADM Date: 01/19/25 Loc: US Attending Dr: Bruce Cervantes D.O. Ordering Physician: Bruce Cervantes D.O. Date of Service: 01/19/25 Procedure(s): US OB BPP w non-stress Accession Number(s): [id number] cc: Bruce Cervantes D.O.; Physician,Non-Staff Roberto [place] [id number] Patient Name: ESTEFANIA CEDEÑO MRN: [id number] date: 1995 Sex: F Assigned Patient Location: [facility] Current Patient Location: Accession/Order Number: [id number] Exam Date: 01/19/2025 09:10 Report Date: 01/19/2025 14:26 At the request of: BRUCE CERVANTES DO Procedure: US OB BPP w non-stress Ultrasound biophysical profile HISTORY: Excessive growth Adequate breathing movement, gross body movement, tone and amniotic fluid volume for total score of 8 out of 8. The amniotic fluid index is 16.4cm within normal limits. The heart rate 139 bpm. US/US OB BPP w non-stress IMPRESSION: Adequate ultrasound biophysical profile Impression dictated by: Carroll Saez M.D. 01/19/2025 2:26 PM Dictation Location: [employer] Electronically authenticated by: [id number] Y Date: 01/19/2025 14:26 Dictated By: Carroll Saez D.O. Signed By: 01/19/25 1429 DD/ 25 TD/TT: Solar Installation Manager: Procedure Note Radiology, Radiologist, - 01/19/2025 [place] [address] Ultrasound Report Signed Patient: ESTEFANIA CEDEÑO JMR#: [id number] : 1995Acct:[id number] Age/Sex: 29 / FADM Date: 01/19/25 Loc: US Attending Dr: Bruce Cervantes D.O. Ordering Physician: Bruce Cervantes D.O. Date of Service: 01/19/25 Procedure(s): US OB BPP w non-stress Accession Number(s): [id number] cc: Bruce Cervantes D.O.; Physician,Non-Staff M.Aminata The [place] [address] Patient Name: ESTEFANIA CEDEÑO MRN: [id number] date: 1995 Sex: F Assigned Patient Location: [facility] Current Patient Location: Accession/Order Number: [id number] Exam Date: 01/19/2025 09:10 Report Date: 01/19/2025 14:26 At the request of: BRUCE CERVANTES DO Procedure: US OB BPP w non-stress Ultrasound biophysical profile HISTORY: Excessive growth Adequate breathing movement, gross body movement, tone and amniotic fluid volume for total score of 8 out of 8. The amniotic fluidindex is 16.4cm within normal limits. The heart rate 139 bpm. US/US OB BPP w non-stress IMPRESSION: Adequate ultrasound biophysical profile Impression dictated by: Carroll Saez M.D. 01/19/2025 2:26 PM Dictation Location: [place] [address] Electronically authenticated by: [id number] Y Date: 4:26 Dictated By: Carroll Saez D.O. Signed By:01/19/25 1429 DD/ 1426 TD/TT: Solar Installation Manager: us Bruce Cervantes DO [facility] Final Result documented in this encounter Visit Diagnoses Not on filedocumented in this encounter
--- OUTSIDE RECORDS SUMMARY | 2025-01-23 08:19 | XMS_ITS | Encounter Summary ---
Author Organization [facility] Address [address] [place] [address] Care Team Providers Care Clinic Licensed Practical Nurse Name Role Phone Unavailable Primary Care Provider Unavailabl e Encounter Details Date Type Department Care Team (Late st Contact Info) Description 01/09/2025 Abstract [facility] [address] [place] [address] [place] [address] Aditya Cervantes, DO [address] [facility] [address] [place], [facility]11 Social History Tobacco Use Types Packs/Day [...] Info) Description 01/23/2025 9:50 AM EDT Routine N[facility] [address] [place] [address] [place] [address] Latasha Padgett PA [address] [place], [facility] 02/06/2025 10:10 AM EDT Routine DENISE CESAR [address] [place], [place] [address] [address] Aditya Cervantes, DO [address] [place], [facility]11 documented as of this encounter Visit Diagnoses Not on filedocumented in this encounter
--- OUTSIDE RECORDS SUMMARY | 2025-01-23 08:19 | XMS_ITS | Encounter Summary ---
Author Organization [facility] Address [address] [place] [address] Care Team Providers Care Metalizer Name Role Phone Unavailable Primary Care Provider Unavailabl e Encounter Details Date Type Department Care Team (Late st Contact Info) Description 12/14/2023 Abstract [facility] [address] [facility] [place] [address] Trini Aquino LPN [address] [facility] Mer[place] [facility] Social History Tobacco [...] 9:50 AM EDT Routine NOM[facility] Carlos [facility] [address] [place] [address] [place] [address] Latasha Padgett PA [address] [facility] [address] [place], [place] [address] 02/06/2025 10:10 AM EDT Routine [facility] [address] [facility] [place] [address] Aditya Cervantes DO [address] [facility] [address] [place], [place] [address] documented as of this encounter Visit Diagnoses Not on filedocumented in this encounter
--- OUTSIDE RECORDS SUMMARY | 2025-01-23 08:19 | XMS_ITS | Encounter Summary ---
Author Organization [facility] Address [address] [place] [address] Care Team Providers Care Log Roller Name Role Phone Unavailable Primary Care Provider Unavailabl e Encounter Details Date Type Department Care Team (Late st Contact Info) Description 10/05/2023 Clinisync Result Encounter NOMS External Department Unsolicited Bruce Cervantes DO [address] [place] [place], [place] [phone] Social History Tobacco Use Types Packs/Day Years [...] 01/23/2025 9:50 AM EDT Routine [facility] [address] [place] [address] [place] [address] Latasha Padgett PA [address] [facility] [address] [place], [place] [address] 02/06/2025 10:10 AM EDT Routine [facility] [address] [facility] [address] Bruce Cervantes DO [address] [place], [place] [address] documented as of this encounter Procedures Procedure Name Priority Date/Time Associated Diagnosis Comments CT ABDOMEN/PELVIS WO CONT 10/05/2023 8:17 AM EDT documented in this encounter Results * CT ABDOMEN/PELVIS WO CONT (10/05/2023 8:17 AM EDT) Anatomical Region Laterality Modality Radiographic Mari ging 10/05/2023 8:17 AM EDT Narrative 10/05/2023 8:20 [place] [address] CT Scan Report Signed Patient: ESTEFANIA CEDEÑO MR#: [id number] : 1995 Acct:[id number] Age/Sex: 28 / F ADM Date: Loc: [facility] 257- Attending Dr: Bruce Cervantes D.O. Ordering Physician: Bruce Cervantes D.O. Date of Service: 10/05/23 Procedure(s): CT abdomen pelvis wo con Accession Number(s): [id number] cc: Physician,Non-Staff M.D. [place] [address] Patient Name: ESTEFANIA CEDEÑO MRN: [id number] date: 1995 Sex: F Assigned Patient Location: [facility] Current Patient Location: [facility] Accession/Order Number: [id number] Exam Date: 10/05/2023 07:38 Report Date: 10/05/2023 [...] M.D. Signed By: 10/05/23819 DD/ 6 TD/TT: Catalyst Supervisor: Procedure Note Radiology, Radiologist, MD - 10/05/2023 [place] [address] CT Scan Report Signed Patient: TRINITY CEDEÑO#: [id number] : 1995Acct:[id number] Age/Sex: Date: Loc: [facility] 257-[address]: Bruce Cervantes D.O. Ordering Physician: Bruce Cervantes D.O. Date of Service: 10/05/23 Procedure(s): CT abdomen pelvis wo con Accession Number(s): [id number] cc: Physician,Non-Staff Roberto The [place] [id number] Patient Name: ESTEFANIA CEDEÑO MRN: [facility]:[id number] date: 1995 Sex: F Assigned Patient Location: [facility] Current Patient Location: [facility] Accession/Order Number: [id number] Exam Date: 10/05/2023 07:38 Report Date: 10/05/2023 [...] Krueger M.D. Signed By:10/05/23819 DD/ 6 TD/TT: Catalyst Supervisor: us Bruce Billy DO IMG XR PROCEDURES Final Result documented in this encounter Visit Diagnoses Not on filedocumented in this encounter
--- OUTSIDE RECORDS SUMMARY | 2025-01-23 08:19 | XMS_ITS | Encounter Summary ---
Author Organization [facility] Address [address] [place] [address] Care Team Providers Care Photocopying Machine Operator Name Role Phone Unavailable Primary Care Provider Unavailabl e Encounter Details Date Type Department Care Team (Late st Contact Info) Description 06/11/2023 Clinisync Result Encounter NOMS External Department Unsolicited Bruce Cervantes DO [address] [place], [place] [address] Social History Tobacco Use Types Packs/Day Years [...] 9:50 AM EDT Routine [facility] [address] [place] [address] [place] [address] Latasha Padgett PA [address] [place], [place] [address] 02/06/2025 10:10 AM EDT Routine [facility] [address] [place] [address] Bruce Cervantes DO [address] [place], [place] [address] documented as of this encounter Procedures Procedure Name Priority Date/Time Associated Diagnosis Comments OB TRANSVAGINAL 06/11/2023 11 :38 AM EST documented in this encounter Results * US OB TRANSVAGINAL (06/11/2023 11:38 AM EST) Anatomical Region Laterality Modality Other 06/11/2023 11:3 8 AM EST Narrative 06/11/2023 11:41 [place] [address] Ultrasound Report Signed Patient: ESTEFANIA CEDEÑO MR#: [id number] : 1995 Acct:[id number] Age/Sex: 28 / F ADM Date: 06/11/23 Loc: US Attending Dr: Bruce Cervantes D.O. Ordering Physician: Bruce Cervantes D.O. Date of Service: 06/11/23 Procedure(s): US OB transvaginal Accession Number(s): [id number] cc: Bruce Cervantes D.O.; Physician,Non-Staff M.D. The [place] [address] Patient Name: ESTEFANIA CEDEÑO MRN: [id number] date: 1995 Sex: F Assigned Patient Location: US Current Patient Location: US Accession/Order Number: [id number] Exam Date: 06/11/2023 10:42 Report Date: 06/11/2023 [...] Signed By: 06/11/23 1141 DD/ 1138 TD/TT: Behavioral Health Counselor: Procedure Note Radiology, Radiologist, MD - 06/11/2023 [place] [address] Ultrasound Report Signed Patient: TRINITY CEDEÑO#: [id number] : 1995Acct:[id number] Age/Sex: 28 / FADM Date: 06/11/23 Loc: US Attending Dr: Bruce Cervantes D.O. Ordering Physician: Bruce Cervantes D.O. Date of Service: 06/11/23 Procedure(s): US OB transvaginal Accession Number(s): [id number] cc: Bruce Cervantes D.O.; Physician,Non-Staff Roberto The [place] [id number] Patient Name: ESTEFANIA CEDEÑO MRN: [id number] date: 1995 Sex: F Assigned Patient Location: US Current Patient Location: US Accession/Order Number: [id number] Exam Date: 06/11/2023 10:42 Report Date: 06/11/2023 [...] M.D. Signed By:06/11/23 1141 DD/ 1138 TD/TT: Behavioral Health Counselor: us Bruce Billy DO [facility] Final Result documented in this encounter Visit Diagnoses Not on filedocumented in this encounter
--- OUTSIDE RECORDS SUMMARY | 2025-01-23 08:19 | XMS_ITS | Encounter Summary ---
Author Organization [facility] Address [address] [place] [address] Care Team Providers Care Health And Safety Inspector Name Role Phone Unavailable Primary Care Provider Unavailabl e Encounter Details Date Type Department Care Team (Late st Contact Info) Description 11/28/2024 Abstract DENISE CESAR [address] [place] [address] [place] [address] Aditya Cervantes, DO [address] [facility] [address] [place], [facility]11 Social History Tobacco Use Types Packs/Day [...] 9:50 AM EDT Routine NOMJean Carlos CESAR [address] [place] [address] [place] [address] Latasha Padgett PA [address] [place], [facility]11 02/06/2025 10:10 AM EDT Routine DENISE CESAR [address] [place], [place] [address] [address] Aditya Cervantes, DO [address] [place], [facility]11 documented as of this encounter Visit Diagnoses Not on filedocumented in this encounter
--- OUTSIDE RECORDS SUMMARY | 2025-01-23 08:19 | XMS_ITS | Encounter Summary ---
Author Organization [facility] Address [address] [place] [address] Care Team Providers Care Dumping Machine Operator Name Role Phone Unavailable Primary Care Provider Unavailabl e Encounter Details Date Type Department Care Team (Late st Contact Info) Description 12/30/2023 Clinisync Result Encounter NOMS External Department Unsolicited Bruce Cervantes DO [address] [place], [place] [phone] Social History Tobacco Use Types Packs/Day Years [...] 9:50 AM EDT Routine [facility] [address] [place] [address] [place] [address] Latasha Padgett PA [address] [place], [place] [phone] 02/06/2025 10:10 AM EDT Routine [facility] [address] [place] [address] Bruce Cervantes DO [address] [place], [place] [address] documented as of this encounter Procedures Procedure Name Priority Date/Time Associated Diagnosis Comments US OB BPP W NON-STRESS 12/30/2023 12:19 PM EDT documented in this encounter Results * US OB BPP W NON-STRESS (12/30/2023 12:19 PM EDT) Anatomical Region Laterality Modality Other 12/30/2023 12:1 9 PM EDT Narrative 12/30/2023 12:22 [place] [address] Ultrasound Report Signed Patient: ESTEFANIA CEDEÑO MR#: [id number] : 1995 Acct:[id number] Age/Sex: 28 / F ADM Date: 12/30/23 Loc: US Attending Dr: Bruce Cervantes D.O. Ordering Physician: Bruce Cervantes D.O. Date of Service: 12/30/23 Procedure(s): US OB BPP w non-stress Accession Number(s): [id number] cc: Bruce Cervantes D.O.; Physician,Non-Staff M.D. [place] [address] Patient Name: ESTEFANIA CEDEÑO MRN: [id number] date: 1995 Sex: F Assigned Patient Location: [facility] Current Patient Location: Accession/Order Number: [id number] Exam Date: 12/30/2023 10:17 Report Date: 12/30/2023 [...] Signed By: 12/30/23 1222 DD/ 1219 TD/TT: Gas Tester: Procedure Note Radiology, Radiologist, - 12/30/2023 [place] [address] Ultrasound Report Signed Patient: TRINITY CEDEÑO#: [id number] : 1995Acct:[id number] Age/Sex: 28 / FADM Date: 12/30/23 Loc: US Attending Dr: Bruce Cervantes D.O. Ordering Physician: Bruce Cervantes D.O. Date of Service: 12/30/23 Procedure(s): US OB BPP w non-stress Accession Number(s): [id number] cc: Bruce Cervantes D.O.; Physician,Non-Staff Roberto The [place] [address] Patient Name: ESTEFANIA CEDEÑO MRN: [id number] date: 1995 Sex: F Assigned Patient Location: [facility] Current Patient Location: Accession/Order Number: [id number] Exam Date: 12/30/2023 10:17 Report Date: 12/30/2023 12:19 At the request of: RBUCE CERVANTES Procedure: US OB BPP w non-stress [...] M.D. Signed By:12/30/23 1222 DD/ 1219 TD/TT: Gas Tester: us Bruce Cervantes DO [facility] Final Result documented in this encounter Visit Diagnoses Not on filedocumented in this encounter
--- OUTSIDE RECORDS SUMMARY | 2025-01-23 08:19 | XMS_ITS | Encounter Summary ---
Author Organization [facility] Address [address] [place] [address] Care Team Providers Care Watcher Lookout Tower Name Role Phone Unavailable Primary Care Provider Unavailabl e Encounter Details Date Type Department Care Team (Late st Contact Info) Description 09/16/2023 Clinisync Result Encounter [facility] External Department Unsolicited Bruce Cervantes DO [address] [place], [place] [id number] Social History Tobacco Use Types Packs/Day Years [...] 9:50 AM EDT Routine [facility] [address] [place] [address] [place] [address] Latasha Padgett PA [address] [facility] [address] [place], [place] [id number] 02/06/2025 10:10 AM EDT Routine [facility] [address] [place] [address] Bruce Cervantes DO [address] [place], [place] [id number] documented as of this encounter Procedures Procedure Name Priority Date/Time Associated Diagnosis Comments OB FOLLOW UP 09/16/2023 11:19 AM EDT documented in this encounter Results * US OB FOLLOW UP (09/16/2023 11:19 AM EDT) Anatomical Region Laterality Modality Radiographic Mari ging 09/16/2023 11:1 9 AM EDT Narrative 09/16/2023 11:22 [place] [address] Ultrasound Report Signed Patient: ESTEFANIA CEDEÑO MR#: [id number] : 1995 Acct:[id number] Age/Sex: 28 / F ADM Date: 09/16/23 Loc: [facility] Attending Dr: Bruce Cervantes D.O. Ordering Physician: Bruce Cervantes D.O. Date of Service: 09/16/23 Procedure(s): US OB follow up Accession Number(s): [id number] cc: Bruce Cervantes D.O.; Physician,Non-Staff M.D. The [place] [address] Patient Name: ESTEFANIA CEDEÑO MRN: [id number] date: 1995 Sex: F Assigned Patient Location: [facility] Current Patient Location: [facility] Accession/Order Number: [id number] Exam Date: 09/16/2023 09:58 Report Date: 09/16/2023 [...] Signed By: 09/16/23 1122 DD/ 1119 TD/TT: Civil Engineering Professional: Procedure Note Radiology, Radiologist, - 09/16/2023 [place] [address] Ultrasound Report Signed Patient: TRINITY CEDEÑO#: [id number] : 1995Acct:[id number] Age/Sex: 28 / FADM Date: 09/16/23 Loc: [facility] Attending Dr: Bruce Cervantes D.O. Ordering Physician: Bruce Cervantes D.O. Date of Service: 09/16/23 Procedure(s): US OB follow up Accession Number(s): [id number] cc: Bruce Cervantes D.O.; Physician,Non-Staff Roberto The [place] [id number] Patient Name: ESTEFANIA CEDEÑO MRN: [id number] date: 1995 Sex: F Assigned Patient [facility]: [facility] Current Patient Location: [facility] Accession/Order Number: [id number] Exam Date: 09/16/2023 09:58 Report Date: 09/16/2023 [...] M.D. Signed By:09/16/23 1122 DD/ 1119 TD/TT: Civil Engineering Professional: us Bruce Cervantes DO IMG XR PROCEDURES Final Result documented in this encounter Visit Diagnoses Not on filedocumented in this encounter
--- OUTSIDE RECORDS SUMMARY | 2025-01-23 08:19 | XMS_ITS | Encounter Summary ---
Author Organization [facility] Address [address] [place] [address] Care Team Providers Care Oil Furnace Installer Name Role Phone Unavailable Primary Care Provider Unavailabl e Encounter Details Date Type Department Care Team (Late st Contact Info) Description 01/03/2024 Abstract DENISE CESAR [address] [place] [address] [place] [phone] Aditya Cervantes DO [address] [facility] [address] [place], [facility]11 Social History Tobacco Use Types Packs/Day Years [...] Info) Description 01/23/2025 9:50 AM EDT Routine DENISE CESAR [address] [place] [address] [place] [phone] Latasha Padgett PA [address] [facility] [address] [place], [place] [id number] 02/06/2025 10:10 AM EDT Routine NOMJean Carlos CESAR [address] [place], [place] [address] [phone] Aditya Cervantes DO [address] [place] [place], [place] [id number] documented as of this encounter Visit Diagnoses Not on filedocumented in this encounter
--- OUTSIDE RECORDS SUMMARY | 2025-01-23 08:19 | XMS_ITS | Encounter Summary ---
Author Organization [facility] Address [address] [place] [address] Care Team Providers Care Accounts Receivable Accountant Name Role Phone Unavailable Primary Care Provider Unavailabl e Encounter Details Date Type Department Care Team (Late st Contact Info) Description 06/23/2023 Clinisync Result Encounter [facility] External Department Unsolicited Bruce Cervantes DO [address] [place], [place] [id number] Social History Tobacco Use Types Packs/Day Years [...] 9:50 AM EDT Routine [facility] [address] [place] [address] [place] [address] Latasha Padgett PA [address] [place], [place] [id number] 02/06/2025 10:10 AM EDT Routine [facility] [address] [place] [address] Bruce Cervantes DO [address] [place], [place] [id number] documented as of this encounter Procedures Procedure Name Priority Date/Time Associated Diagnosis Comments OB TRANSVAGINAL 06/23/2023 10 :07 AM EST documented in this encounter Results * US OB TRANSVAGINAL (06/23/2023 10:07 AM EST) Anatomical Region Laterality Modality Other 06/23/2023 10:0 7 AM EST Narrative 06/23/2023 10:09 [place] [address] Ultrasound Report Signed Patient: ESTEFANIA CEDEÑO MR#: [id number] : 1995 Acct:[id number] Age/Sex: 28 / F ADM Date: 06/23/23 Loc: [facility] Attending Dr: Bruce Cervantes D.O. Ordering Physician: Bruce Cervantes D.O. Date of Service: 06/23/23 Procedure(s): US OB transvaginal Accession Number(s): [id number] cc: Bruce Cervantes D.O.; Physician,Non-Staff M.D. The [place] [address] Patient Name: ESTEFANIA CEDEÑO MRN: [id number] date: 1995 Sex: F Assigned Patient Location: [facility] Current Patient Location: [facility] Accession/Order Number: [id number] Exam Date: 06/23/2023 09:30 Report Date: 06/23/2023 [...] Signed By: 06/23/23 1009 DD/ 1007 TD/TT: Carton Marker Machine: Procedure Note Radiology, Radiologist, - 08/04/2023 [place] [address] Ultrasound Report Signed Patient: TRINITY CEDEÑO#: [id number] : 1995Acct:[id number] Age/Sex: M Date: 06/23/23 Loc: [facility] Attending Dr: Bruce Cervantes D.O. Ordering Physician: Bruce Cervantes D.O. Date of Service: 06/23/23 Procedure(s): US OB transvaginal Accession Number(s): [id number] cc: Bruce Cervantes D.O.; Physician,Non-Staff Roberto The [place] [id number] Patient Name: ESTEFANIA CEDEÑO MRN: [id number] date: 1995 Sex: F Assigned Patient Location: [facility] Current Patient Location: [facility] Accession/Order Number: [id number] Exam Date: 06/23/2023 09:30 Report Date: 06/23/2023 [...] M.D. Signed By:06/23/23 1009 DD/ 1007 TD/TT: Carton Marker Machine: us Bruce Cervantes DO [facility] Final Result documented in this encounter Visit Diagnoses Not on filedocumented in this encounter
--- OUTSIDE RECORDS SUMMARY | 2025-01-23 08:19 | XMS_ITS | Encounter Summary ---
Author Organization [facility] Address [address] [facility] [place] [address] Care Team Providers Care Telephone Messenger Name Role Phone Unavailable Primary Care Provider Unavailabl e Encounter Details Date Type Department Care Team (Late st Contact Info) Description 10/06/2024 Orders Only [facility] [address] [place] [address] Maria Elena Dolan MA Social History Tobacco [...] AM EDT Routine [facility] [address] [place] [address] Latasha Padgett PA [address] [facility] [address] [place], [place] [id number] 02/06/2025 10:10 AM EDT Routine [facility] [address] [facility] [place] [address] Aditya Cervantes DO [address] [place], [place] [address] documented as of this encounter Procedures Procedure Name Priority Date/Time Associated Diagnosis Comments PAP SMEAR Routine 09/26/2024 12:00 AM EDT documented in this encounter Results * Pap Smear (09/26/2024 12:00 AM EDT) Swab Cervical swab / Unknown us Aditya Cervantes DO LAB CYTOLOGY ORDERABLES Final Re sult EXTERNAL LAB documented in this encounter Visit Diagnoses Not on filedocumented in this encounter
--- OUTSIDE RECORDS SUMMARY | 2025-01-23 08:19 | XMS_ITS | Encounter Summary ---
Author Organization [facility] Address [address] [place] [address] Care Team Providers Care Microfilm Technician Name Role Phone Unavailable Primary Care Provider Unavailabl e Encounter Details Date Type Department Care Team (Late st Contact Info) Description 12/15/2023 Abstract NOM[facility] Carlos [facility] [address] [facility] [address] Trini Aquion LPN 102 [facility] Merissa [facility]11 Social History Tobacco Use Types [...] 01/23/2025 9:50 AM EDT Routine DENISE CESAR [address] [place] [address] [place] [phone] Latasha Padgett PA [address] [facility] [address] [place], [place] [id number] 02/06/2025 10:10 AM EDT Routine NOM[facility] Carlos C[facility] [address] [facility] [place] [address] Aditya Cervantes DO [address] [facility] [address] [place], [place] [address] documented as of this encounter Visit Diagnoses Not on filedocumented in this encounter
--- OUTSIDE RECORDS SUMMARY | 2025-01-23 08:19 | XMS_ITS | Encounter Summary ---
Author Organization [facility] Address [address] [place] [address] Care Team Providers Care Information Technology Audit Manager Name Role Phone Unavailable Primary Care Provider Unavailabl e Encounter Details Date Type Department Care Team (Late st Contact Info) Description 12/13/2024 Results Follow-Up DENISE CESAR [address] [facility] [place] [address] Hedy Singh LPN [address] [place] [address] GLUCOSE TOLERANCE 3 HOUR Social History Tobacco Use Types Packs/Day Years Used Date Smoking Tobacco: Never Assessed Estimated Date of Delivery Comme nts Yes 03/06/2025 Based on Ultraso und Sex and Gender Information Value Date Recorded Sex Assigned at Not on file Legal Sex Female 3:04 PM EDT Gender Identity Not on file Sexual Orientation Not on file documented as of this encounter Miscellaneous Notes * Result Encounter Note - Hedy Singh LPN - 12/13/2024 10:07 AM EDT Note placed on flowsheet as pt comes in today for an appointment documented in this encounter Plan of Treatment Upcoming Encounters Date Type Department Care Team (Late st Contact Info) Description 01/23/2025 9:50 AM EDT Routine NOMJean Carlos CESAR [address] [facility] [place] [address] Latasha Padgett PA [address] [facility] [place] [address] 02/06/2025 10:10 AM EDT Routine [facility] [address] [facility] [place] [address] Aditya Cervantes DO [address] [facility] [place] [address] documented as of this encounter Visit Diagnoses Not on filedocumented in this encounter
--- OUTSIDE RECORDS SUMMARY | 2025-01-23 08:19 | XMS_ITS | Encounter Summary ---
Author Organization [facility] Address [address] [place] [address] Care Team Providers Care Loss Prevention Operations Manager Name Role Phone Unavailable Primary Care Provider Unavailabl e Encounter Details Date Type Department Care Team (Late st Contact Info) Description 04/20/2023 Abstract NOMJean Carlos CESAR [address] [facility] [place] [address] Trini Aquino LPN 102 [facility] Merissa [facility]11 Social History Tobacco Use Types Packs/Day Years [...] 01/23/2025 9:50 AM EDT Routine DENISE CESAR [address] [place] [address] [place] [address] Latasha Padgett PA [address] [facility] [address] [place], [place] [id number] 02/06/2025 10:10 AM EDT Routine NOMJean Carlos CESAR [address] [facility] [place] [address] Aditya Cervantes DO [address] [facility] [address] [place], [place] [id number] documented as of this encounter Visit Diagnoses Not on filedocumented in this encounter
--- OUTSIDE RECORDS SUMMARY | 2025-01-23 08:19 | XMS_ITS | Encounter Summary ---
Author Organization [facility] Address [address] [place] [address] Care Team Providers Care Regional Facilities Manager Name Role Phone Unavailable Primary Care Provider Unavailabl e Encounter Details Date Type Department Care Team (Late st Contact Info) Description 01/09/2025 Bamboo flowsheet [facility] [address] [facility] [place] [address] Aditya Cervantes, DO [address] [facility] [address] [place], [facility]11 Social History Tobacco Use Types Packs/Day Years [...] 01/23/2025 9:50 AM EDT Routine [facility] CORONAGYRoc[facility] [address] [place] [address] [place] [address] Latasha Padgett PA [address] [facility] [address] [place], [facility]11 02/06/2025 10:10 AM EDT Routine [facility] [address] [place] [address] [place] [address] Aditya Cervantes, DO [address] [place] [place], [facility]11 documented as of this encounter Visit Diagnoses Not on filedocumented in this encounter
--- OUTSIDE RECORDS SUMMARY | 2025-01-23 08:19 | XMS_ITS | Clinical Summary ---
Author Organization [facility] Address [address] [place] [address] Care Team Providers Care Clinical Massage Therapist Name Role Phone Unavailable Primary Care Provider Unavailabl e Allergies Active Allergy Reactions Criticality Noted Date Comments Other 04/18/2024 NUTS Triamcinolone Other,Hives High 10/13/2013 Had to have reconstructive surgery. Dimpling of the skin Medications Vit-Fe Fumarate-FA (PNV Plus Multivitamin) 27-1 MG tabletIndicatio ns:Encounter for supervision of normal first in first trimester ([facility]) Take 1 tablet by mouth Daily 30 tablet 11 5 Active aspirin 81 MG EC tablet Take 81 mg by mouth Daily Active Continuous Glucose Transmitter (Dexcom G6 transmitter) miscIndications :Gestational diabetes mellitus (GDM), antepartum, gestational diabetes method of control unspecified ([facility]) Use as instructed 1 each 5 Active metFORMIN XR (Glucophage-XR) 500 MG 24 hr tabletIndicatio ns:Hyperglycemi a during ([facility]) Take 1 tablet (500 mg) by mouth in the evening. Take with meals Do not crush, chew, or split. 30 tablet 11 5 02/09/20 25 Active Continuous Glucose Sensor (Dexcom G6 Sensor) miscIndications :Elevated glucose tolerance test,28 weeks gestation of ([facility]),Gesta tional diabetes mellitus (GDM), antepartum, gestational diabetes method of control unspecified ([facility]) 1 each Every 10 (ten) days 3 each 3 5 Active Continuous Glucose Sensor (Dexcom G6 Sensor) miscIndications :Elevated glucose tolerance test,28 weeks gestation of ([facility]),Gesta tional diabetes mellitus (GDM), antepartum, gestational diabetes method of control unspecified ([facility]) 1 each Every 10 (ten) days 3 each 3 5 01/19/20 25 Discontin ued(Reord er) Resolved Problems Problem Noted Date Diagnosed Date Resolved Date Excessive growth affec ting management of mother, antepartum ([facility]) 12/06/2023 01/03/20 24 Third trimester ([facility]) 12/06/2023 01/03/2024 Encounters Date Type Department Care Team Description 01/19/2025 Clinisync Result Encounter NOMS External Department Unsolicited Bruce Cervantes, 01/18/2025 [place] [address] Cammie Polo MA Elevated glucose tolerance test; 28 weeks gestation of ([facility]); Gestational diabetes mellitus (GDM), antepartum, gestational diabetes method of control unspecified ([facility]) 01/09/2025 11:10 AM ED[place] [address] Bruce Cervantes, Third trimester ([facility]); 32 weeks gestation of ([facility]); Gestational diabetes mellitus (GDM), antepartum, gestational diabetes method of control unspecified ([facility]); Hyperglycemia during ([facility]) 01/09/2025 [place] [address] Bruce Cervantes, 01/09/2025 [place] [address] Burce Cervantes, DO 01/09/2025 Bamboo [place] [address] Bruce Cervantes, 12/27/2024 11:00 AM EDT Ancillary Procedure [place] [address] Elevated glucose tolerance test; Gestational diabetes mellitus (GDM), antepartum, gestational diabetes method of control unspecified ([facility]) 12/27/2024 10:20 AM EDT Routine [facility] [place] [address] Latasha Padgett PA Third trimester ([facility]) 12/27/2024 Bamboo flowsheet [facility] Arias [facility] [place] [address] Latasha Padgett PA 12/19/2024 Telephone [facility] [place] [address] Cammie Polo MA 12/13/2024 1:40 PM EDT Routine NOMJean Carlos [place] [address] Bruce Cervantes DO Elevated glucose tolerance test; History of gestational diabetes; Third trimester ([facility]); 28 weeks gestation of ([facility]); Gestational diabetes mellitus (GDM), antepartum, gestational diabetes method of control unspecified ([facility]) 12/13/2024 Results Follow-Up DENISE Arias [facility] [place] [address] Hedy Singh LPN GLUCOSE TOLERANCE 3 HOUR 12/12/2024 Clinisync Result Encounter NOMS External Department Unsolicited Bruce Cervantes, 12/05/2024 Clinisync Result Encounter NOMS External Department Unsolicited Latasha Padgett PA 12/05/2024 Clinisync Result Encounter NOMS External Department Unsolicited Bruce Cervantes, 11/28/2024 Abstract [facility] [place] [address] Bruce Cervantes, 11/22/2024 1:50 PM EDT Routine [facility]ia C[facility]AR [address] [place] [address] Bruce Cervantes, Dizziness (Primary Dx); 25 weeks gestation of ([facility]); Second trimester ([facility]); History of gestational diabetes; Diabetes mellitus screening 11/22/2024 Bamboo flowsheet [facility]ia [facility] [address] [place] [address] Bruce Cervantes DO 10/31/2024 Abstract [facility]ia [facility] [address] [place] [address] Bruce Cervantes, 10/25/2024 9:30 AM EDT Routine NOM[facility] Carlos Arias [facility] [place] [address] Latasha Padgett PA Second trimester ([facility]); 21 weeks gestation of ([facility]) 10/25/2024 8:00 AM EDT Ancillary Procedure NOMJean Carlos CESAR [address] [place] [address] from Last 3 Months Family History Medical [...] Sign Reading Time Taken Comments Blood Pressure 122/74 12/27/2024 10:35 AM EDT Pulse - - Temperature - - Respiratory Rate - - Oxygen Saturation - - Inhaled Oxygen Concentration - - Weight 124 kg (273 lb 12.8 oz) 12/27/2024 10:35 AM EDT Height 170.2 cm (5' 7 ) 01/10/2024 8:56 AM EDT Body Mass Index 42.88 01/10/2024 8:56 AM EDT Plan of Treatment Upcoming Encounters Date Type Department Care Team (Late st Contact Info) Description 01/23/2025 9:50 AM EDT Routine [facility] OBG[facility] [address] [place] [address] Latasha Padgett PA [address] [facility] [place] [address] 02/06/2025 10:10 AM EDT Routine [facility] [address] [place] [address] Bruce Cervantes DO [address] [facility] [address] [place], [place] [address] Health Maintenance Due Date Last Done Comments Influenza Vaccine (#1) 2025 Procedures Procedure Name Priority Date/Time Associated Diagnosis Comments US OB BPP W NON-STRESS 01/19/2025 2:26 PM EDT POCT URINALYSIS DIPSTICK Routine 01/09/2025 11:28 AM EDT Third trimester ([facility]) US OB FOLLOW UP TRANSABDOMINAL APPROACH Routine 12/27/2024 11:31 AM EDT Elevated glucose tolerance test Gestational diabetes mellitus (GDM), antepartum, gestational diabetes method of control unspecified ([facility]) POCT URINALYSIS DIPSTICK Routine 12/27/2024 10:47 AM EDT Third trimester ([facility]) POCT URINALYSIS DIPSTICK Routine 12/13/2024 2:01 PM EDT Third trimester ([facility]) 28 weeks gestation of ([facility]) GLUCOSE TOLERANCE 3 HOUR Routine 12/12/2024 11:18 AM EDT GLUCOSE 1 HOUR Routine 12/05/2024 10:53 AM EDT ALL CBC WITH AUTO DIFF Routine 10:53 AM EDT ECG 12-LEAD 12/05/2024 9:07 AM EDT POCT URINALYSIS DIPSTICK Routine 11/22/2024 2:36 PM EDT 25 weeks gestation of ([facility]) Second trimester ([facility]) History of gestational diabetes POCT URINALYSIS DIPSTICK Routine 10/25/2024 9:11 AM EDT Second trimester ([facility]) US OB 14+ WEEKS ANATOMY SCAN Routine 10/25/2024 8:59 AM EDT Screening, , for anatomic survey ([facility]) from Last 3 Months Results * US OB BPP W NON-STRESS (01/19/2025 2:26 PM EDT) Anatomical Region Laterality Modality Other 01/19/2025 2:26 PM EDT Narrative 01/19/2025 2:29 [place] [address] Ultrasound Report Signed Patient: ESTEFANIA FLOREZ MR#: [id number] : 1995 Acct:[id number] Age/Sex: 29 / F ADM Date: 01/19/25 Loc: US Attending Dr: Bruce Cervantes D.O. Ordering Physician: Bruce Cervantes D.O. Date of Service: 01/19/25 Procedure(s): US OB BPP w non-stress Accession Number(s): [id number] cc: Bruce Cervantes D.O.; Physician,Non-Staff M.D. [address] [address] Patient Name: ESTEFANIA FLOREZ MRN: [id number] date: 1995 Sex: F Assigned Patient Location: [facility] Current Patient Location: Accession/Order Number: [id number] Exam Date: 01/19/2025 09:10 Report Date: 01/19/2025 [...] Saez M.D. 01/19/2025 2:26 PM Dictation Location: [facility] [employer] Electronically authenticated by: [id number] Y Date: 01/19/2025 14:26 Dictated By: Carroll Saez D.O. Signed By: 01/19/25 1429 DD/ 1426 TD/TT: Storage Battery Inspector: Procedure Note Radiology, Radiologist, MD - 01/19/2025 [place] [address] Ultrasound Report Signed Patient: ESTEFANIA FLOREZ JMR#: [id number] : 1995Acct:[id number] Age/Sex: 29 / FADM Date: 01/19/25 Loc: US Attending Dr: Bruce Cervantes D.O. Ordering Physician: Bruce Cervantes D.O. Date of Service: 01/19/25 Procedure(s): US OB BPP w non-stress Accession Number(s): [id number] cc: Bruce Cervantes D.O.; Physician,Non-Staff [place] The [place] [id number] Patient Name: ESTEFANIA FLOREZ MRN: [id number] date: 1995 Sex: F Assigned Patient Location: [facility] Current Patient Location: Accession/Order Number: [id number] Exam Date: 01/19/2025 09:10 Report Date: 01/19/2025 14:26 At the request of: BRUCE BILLY DO Procedure: US OB BPP w non-stress [...] Saez M.D. 01/19/2025 2:26 PM Dictation Location: [employer] Electronically authenticated by: [id number] Y Date: 4:26 Dictated By: Carroll Saez D.O. Signed By:01/19/25 1429 DD/ 142 TD/TT: Storage Battery Inspector: us Bruce Billy DO [facility] Final Result * POCT urinalysis dipstick manually resulted (01/09/2025 11:28 AM EDT) Only the most recent of5 resultswithin the time period is included. Color, [...] Positive Urine 01/09/2025 11:2 8 AM EDT Bruce Billy DO POINT OF CARE TEST ENTER/EDIT OR DERABLES Final Result * US OB follow up transabdominal approach (12/27/2024 11:31 AM EDT) Anatomical Region Laterality Modality Body Ultrasound 12/28/2024 8:35 AM EDT Narrative 12/28/2024 8:35 AM EDT EXAM: US OB FOLLOW UP TRANSABDOMINAL APPROACH [...] 03/04/2025. Interpreted by: Electronically signed by PENG CORNELL II, MD, PHD at 28-Dec-2024 08:33:38 AM [facility] Procedure Note Peng Cornell MD - 12/28/2024 EXAM: US OB FOLLOW UP TRANSABDOMINAL APPROACH HISTORY: Gestational diabetes. COMPARISON: Ob ultrasound 10/25/2024. TECHNIQUE: Two-dimensional transabdominal grayscale ultrasound imaging ofthe [...] is 30 weeks 3 days (+/- 7 daysgestation). Estimated Weight: 1680 grams, +/- 252 grams ( 3 lb 11 oz). Weight Percentile for gestational age: 68 % IMPRESSION: 1. Single, live intrauterine gestation 30 weeks, 1 days by LMP. Today'sultrasound measurements correlate with a gestational age of 30 weeks 3days. Estimated weight is 1680 grams, +/- 252 grams ( 3 lb 11 oz)which correlates to 68 %. CARTER by today's ultrasound is 03/04/2025. Interpreted by: Electronically signed by PENG CORNELL II, MD, PHD [id number] 08:33:38 AM [facility] us Bruce Billy DO IMG OB US PROCEDURES Final Resul t * (ABNORMAL) GLUCOSE TOLERANCE 3 HOUR (12/12/2024 11:18 AM EDT) GLUCOSE TOLERANCE 3 HOUR (H) mg/dL TBH Comment: GLU FAST 85 (<95) Col: 12/12/24 1118 GLU 1HR 198H (<180) Col: 12/12/24 1220 GLU 2HR 171H (<155) Col: 12/12/24 1320 GLU 3HR 74 (<140) Col: 12/12/24 1422 12/12/2024 11:1 8 AM EDT 12/12/2024 11:21 AM EDT Narrative [facility] - 12/12/2024 3:11 PM EDT us Bruce Billy DO LAB BLOOD ORDERABLES Final Resul t [facility] TB * (ABNORMAL) GLUCOSE 1 HOUR (12/05/2024 10:53 AM EDT) GLUCOSE 1 HOUR 176(H) <130 mg/dL [facility] 12/05/2024 10:5 3 AM EDT 12/05/2024 10:54 AM EDT Narrative [facility] - 12/05/2024 11:23 AM EDT us Bruce Billy DO LAB BLOOD [...] [facility] - 12/05/2024 11:14 AM EDT Bruce Billy DO [facility] Final Result [facility] * ECG 12-LEAD (12/05/2024 9:07 AM EDT) Anatomical Region Laterality Modality Other 12/05/2024 9:07 AM EDT Narrative 12/07/2024 9:00 [place] [address] Electrocardiograph Report Signed Patient: ESTEFANIA FLOREZ MR#: [id number] : 1995 Acct:[id number] Age/Sex: 29 / F ADM Date: 12/05/24 Loc: CR Attending Dr: Latasha Padgett Ordering Physician: Latasha Padgett Date of Service: 12/05/24 Procedure(s): ECG 12 lead Accession Number(s): [id number] cc: [facility] Test Date: 2024-12-05 Pat Name: ESTEFANIA FLOREZ Department: Room: - Gender: Female Restaurant Supervisor: : 1995 Requested By: 0923 Order Number: [id number] Reading MD: ANTON THORPE Measurements Intervals [place] Rate: 68 P: 55 CT: 116 QRS: 72 QRSD: 94 T: 14 QT: 411 QTc: 439 Interpretive Statements SINUS RHYTHM WITH SHORT CT INTERVAL NONSPECIFIC T-WAVE ABNORMALITY No previous ECG available for comparison Electronically Signed On 12-07-2024 9:00:49 EDT by ANTON THORPE Dictated By: Anton Thorpe M.D. Signed By: 12/07/2489912/07/24899 DD/ 6 TD/TT: Storage Battery Inspector: Procedure Note Radiology, Radiologist, - 12/07/2024 The [place] [id number] Electrocardiograph Report Signed Patient: ESTEFANIA FLOREZ JMR#: [id number] : 1995Acct:[id number] Age/Sex: 29 / FADM Date: 12/05/24 Loc: CR Attending Dr: Latasha Padgett Ordering Physician: Latasha Padgett Date of Service: 12/05/24 Procedure(s): ECG 12 lead Accession Number(s): [id number] cc: [facility] Test Date: 2024-12-05 Pat Name: ESTEFANIA FLOREZ Department: Room: - Gender: Female Restaurant Supervisor: : 1995 Requested By: 0923 Order Number: [id number] Reading MD: ANTON THORPE Measurements Intervals [place] Rate: 68 P: 55 CT: 116 QRS: 72 QRSD: 94 T: 14 QT: 411 QTc: 439 Interpretive Statements SINUS RHYTHM WITH SHORT CT INTERVAL NONSPECIFIC T-WAVE ABNORMALITY No previous ECG available for comparison Electronically Signed On 12-07-2024 9:00:49 EDT by ANTON THORPE Dictated By: Anton Thorpe M.D. Signed By:12/07/2489912/07/24899 DD/ 6 TD/TT: Storage Battery Inspector: us Latasha KULKARNI [facility] Final Result * US OB 14+ weeks [...] II, MD, PHD at 25-Oct-2024 11:18:35 PM [facility] Procedure Note Peng Cornell MD - [...] signed by PENG CORNELL II, MD, PHD [id number] 11:18:35 PM [facility] us Bruce Cervantes DO IMG OB US PROCEDURES Final Resul t from Last 3 Months Insurance
--- OUTSIDE RECORDS SUMMARY | 2025-01-23 08:19 | XMS_ITS ---
Author Organization [facility] Source Produ ction (ClinicalSummary Clone) Address Unknown Care Team Providers Care Leasing Agent Name Role Phone Unavailable Primary Care Physician Unavailab le Results * [UNITY] ANEUPLOIDY NIPT Performed by: Construct Component Value Range Date Fraction 3.8% 08/13/2024 04 :02 pm UTC Rh(D) NIPT RhD DETECTED 08/13/2024 04:0 2 pm UTC Sex Chromosome Aneuploidy NOT DETECTED 04:02 pm UTC Monosomy X LOW RISK <1 in 10,000 2024 04:02 pm UTC Trisomy 13 LOW RISK <1 in 10,000 2024 04:02 pm UTC Trisomy 18 LOW RISK <1 in 10,000 2024 04:02 pm UTC Trisomy 21 LOW RISK <1 in 10,000 2024 04:02 pm UTC Sex FEMALE 08/13/2024 04:0 2 pm UTC Gestation KRUSE 08/14/19 04:02 pm UTC For detailed report, see PDF See PDF 08/13/2024 04:02 pm UTC 08/13/2024 04:0 2 pm UTC Social History Observation Value Start Date End Date
--- OUTSIDE RECORDS SUMMARY | 2025-01-23 08:19 | XMS_ITS | Encounter Summary ---
Author Organization [facility] Address [address] [place] [address] Care Team Providers Care Terminal Clerk Name Role Phone Unavailable Primary Care Provider Unavailabl e Encounter Details Date Type Department Care Team (Late st Contact Info) Description 12/21/2023 Abstract [facility] [address] [facility] [address] Hedy Singh LPN [address] [place] [address] Social History Tobacco Use Types Packs/Day Years [...] 9:50 AM EDT Routine N[facility] CESAR [address] [place] [address] [place] [address] Latasha Padgett PA [address] [facility] [address] [place], [place] [id number] 02/06/2025 10:10 AM EDT Routine NOMJean Carlos CESAR [address] [facility] [address] Aditya Cervantes DO [address] [facility] [address] [place], [place] [address] documented as of this encounter Visit Diagnoses Not on filedocumented in this encounter
--- OUTSIDE RECORDS SUMMARY | 2025-01-23 08:19 | XMS_ITS | Encounter Summary ---
Author Organization [facility] Address [address] [place] [address] Care Team Providers Care General Laborer Name Role Phone Unavailable Primary Care Provider Unavailabl e Encounter Details Date Type Department Care Team (Late st Contact Info) Description 08/19/2023 Clinisync Result Encounter NOMS External Department Unsolicited Bruce Cervantes DO [address] [place], [place] [id number] Social History Tobacco Use Types Packs/Day Years [...] AM EDT Routine [facility] [address] [place] [address] Latasha Padgett PA [address] [facility] [address] [place], [place] [address] 02/06/2025 10:10 AM EDT Routine [facility]BG[facility] [address] [place] [address] Bruce Cervantes DO [address] [place], [place] [address] documented as of this encounter Procedures Procedure Name Priority Date/Time Associated Diagnosis Comments US OB CERVICAL LENGTH 08/19/2023 11:33 AM EDT documented in this encounter Results * US OB CERVICAL LENGTH (08/19/2023 11:33 AM EDT) Anatomical Region Laterality Modality Other 08/19/2023 11:3 3 AM EDT Narrative 08/19/2023 11:35 [place] [address] Ultrasound Report Signed Patient: ESTEFANIA CEDEÑO MR#: [id number] : 1995 Acct:[id number] Age/Sex: 28 / F ADM Date: 08/19/23 Loc: NOMS Attending Dr: Bruce Cervantes D.O. Ordering Physician: Bruce Cervantes D.O. Date of Service: 08/19/23 Procedure(s): US OB cervical length Accession Number(s): [id number] cc: Burce Cervantes D.O.; Physician,Non-Staff M.D. [place] [address] Patient Name: ESTEFANIA CEDEÑO MRN: [id number] date: 1995 Sex: F Assigned Patient Location: [facility] Current Patient Location: [facility] Accession/Order Number: [id number] Exam Date: 08/19/2023 10:08 Report Date: 08/19/2023 [...] Signed By: 08/19/23 1135 DD/ 1133 TD/TT: Watch Train Assembler: Procedure Note Radiology, Radiologist, MD - 08/19/2023 [place] [address] Ultrasound Report Signed Patient: TRINITY CEDEÑO#: [id number] : 1995Acct:[id number] Age/Sex: Date: 08/19/23 Loc: NOMS Attending Dr: Bruce Cervantes D.O. Ordering Physician: Bruce Cervantes D.O. Date of Service: 08/19/23 Procedure(s): US OB cervical length Accession Number(s): [id number] cc: Bruce Cervantes D.O.; Physician,Non-Staff Roberto The [place] [id number] Patient Name: ESTEFANIA CEDEÑO MRN: [id number] date: 1995 Sex: F Assigned Patient Location: [facility] Current Patient Location: [facility] Accession/Order Number: [id number] Exam Date: 08/19/2023 10:08 Report Date: 08/19/2023 [...] M.D. Signed By:08/19/23 1135 DD/ 1133 TD/TT: Watch Train Assembler: Bruce Cervantes DO [facility] Final Result documented in this encounter Visit Diagnoses Not on filedocumented in this encounter
--- OUTSIDE RECORDS SUMMARY | 2025-01-23 08:19 | XMS_ITS | Encounter Summary ---
Author Organization [facility] Address [address] [place] [address] Care Team Providers Care Supervisor Pile Driving Name Role Phone Unavailable Primary Care Provider Unavailabl e Reason for Visit * Reason Onset Date Comments Med Refill 01/18/2025 Encounter Details Date Type Department Care Team (Late Contact Info) Description 01/18/2025 Refill NOM[facility] C[facility] [address] [facility] [address] Cammie Polo MA [address] [place] [address] [place] [address] Elevated glucose tolerance test; 28 weeks gestation of ([facility]); Gestational diabetes mellitus (GDM), antepartum, gestational diabetes method of control unspecified ([facility]) Social History Tobacco Use Types Packs/Day Years Used Date Smoking Tobacco: Never Assessed Estimated Date of Delivery Comme nts Yes 03/06/2025 Based on Ultraso und Sex and Gender Information Value Date Recorded Sex Assigned at Not on file Legal Sex Female 3:04 PM EDT Gender Identity Not on file Sexual Orientation Not on file documented as of this encounter Miscellaneous Notes * Telephone Encounter - Cammie Polo MA - 01/18/2025 2:18 PM EDT PT CALLED in need of dexcom sensor refill. Rx was sent pt notified. documented in this encounter Plan of Treatment Upcoming Encounters Date Type Department Care Team (Late st Contact Info) Description 01/23/2025 9:50 AM EDT Routine NOMJean Carlos CESAR [address] [place] [address] Latasha Padgett PA [address] [facility] [address] [place], [place] [phone] 02/06/2025 10:10 AM EDT Routine [facility]S Gia C[facility] [address] [facility] [address] Aditya Cervantes DO [address] [facility] [place] [address] documented as of this encounter Visit Diagnoses Diagnosis Elevated glucose tolerance test Impaired glucose tolerance test 28 weeks gestation of ([facility]) Gestational diabetes mellitus (GDM), antepartum, gestational diabetes method of control unspecified ([facility]) documented in this encounter
--- OUTSIDE RECORDS SUMMARY | 2025-01-23 08:19 | XMS_ITS | Encounter Summary ---
Author Organization [facility] Address [address] [place] [address] Care Team Providers Care Sports Photographer Name Role Phone Unavailable Primary Care Provider Unavailabl e Encounter Details Date Type Department Care Team (Late st Contact Info) Description 10/31/2024 Abstract DENISE CESAR [address] [place] [address] [place] [address] Aditya Cervantes, DO [address] [facility] [address] [place], [facility] Social History Tobacco Use Types Packs/Day [...] 9:50 AM EDT Routine NOMJean Carlos CESAR [address] [place] [address] [place] [address] Latasha Padgett PA [address] [place], [facility] 02/06/2025 10:10 AM EDT Routine DENISE CESAR [address] [place], [place] [address] [address] Aditya Cervantes, DO [address] [place], [facility] documented as of this encounter Visit Diagnoses Not on filedocumented in this encounter
--- OUTSIDE RECORDS SUMMARY | 2025-01-23 08:19 | XMS_ITS | Encounter Summary ---
Author Organization [facility] Address [address] [place] [address] Care Team Providers Care Scrap Charger Name Role Phone Unavailable Primary Care Provider Unavailabl e Encounter Details Date Type Department Care Team (Late st Contact Info) Description 08/04/2024 Abstract DENISE CESAR [address] [place] [address] [place] [address] Aditya Cervantes, DO [address] [facility] [address] [place], [facility] Social History Tobacco Use Types Packs/Day [...] 9:50 AM EDT Routine NOMJean Carlos CESAR [address] [place] [address] [place] [address] Latasha Padgett PA [address] [place], [facility] 02/06/2025 10:10 AM EDT Routine DENISE CESAR [address] [place], [place] [address] [address] Aditya Cervantes, DO [address], [facility] documented as of this encounter Visit Diagnoses Not on filedocumented in this encounter
--- OUTSIDE RECORDS SUMMARY | 2025-01-23 08:19 | XMS_ITS | Encounter Summary ---
Author Organization [facility] Address [address] [place] [address] Care Team Providers Care Counter Professional Name Role Phone Unavailable Primary Care Provider Unavailabl e Encounter Details Date Type Department Care Team (Late st Contact Info) Description 12/15/2023 Clinisync Result Encounter [facility] External Department Unsolicited Bruce Cervantes DO [address] [place], [place] [id number] Social History Tobacco Use Types Packs/Day Years [...] 9:50 AM EDT Routine [facility] [address] [place] [address] [place] [address] Latasha Padgett PA [address] [facility] [address] [place], [place] [id number] 02/06/2025 10:10 AM EDT Routine [facility] [address] [place] [address] Bruce Cervantes DO [address] [place], [place] [id number] documented as of this encounter Procedures Procedure Name Priority Date/Time Associated Diagnosis Comments US OB GROWTH 12/15/2023 12:01 PM EDT [facility] BOX TEST SENT OUT Routine 12/15/2023 11:10 AM EDT documented in this encounter Results * US OB GROWTH (12/15/2023 12:01 PM EDT) Anatomical Region Laterality Modality Other 12/15/2023 12:0 1 PM EDT Narrative 12/15/2023 12:04 [place] [address] Ultrasound Report Signed Patient: ESTEFANIA CEDEÑO MR#: [id number] : 1995 Acct:[id number] Age/Sex: 28 / F ADM Date: 12/15/23 Loc: [facility] Attending Dr: Bruce Cervantes D.O. Ordering Physician: Bruce Cervantes D.O. Date of Service: 12/15/23 Procedure(s): US OB growth Accession Number(s): [id number] cc: Bruce Cervantes D.O.; Physician,Non-Staff M.DAsiya The [place] [address] Patient Name: ESTEFANIA CEDEÑO MRN: [facility]:[id number] date: 1995 Sex: F Assigned Patient Location: [facility] Current Patient Location: [facility] Accession/Order Number: [id number] Exam Date: 12/15/2023 10:33 Report Date: 12/15/2023 [...] Dr. Cervantes was notified of findings by buyer renter at time of imaging. Electronically authenticated by: ED KRUEGER Date: 12/15/2023 12:01 Dictated By: Ed Krueger M.D. Signed By: 12/15/23 1204 DD/ 1201 TD/TT: Tnt Powder Worker: Procedure Note Radiology, Radiologist, MD - 12/15/2023 [place] [address] Ultrasound Report Signed Patient: TRINITY CEDEÑO#: [id number] : 1995Acct:[id number] Age/Sex: Date: 12/15/23 Loc: [facility] Attending Dr: Bruce Cervantes D.O. Ordering Physician: Bruce Cervantes D.O. Date of Service: 12/15/23 Procedure(s): US OB growth Accession Number(s): [id number] cc: Bruce Cervantes D.O.; Physician,Non-Staff MSirena The [place] [id number] Patient Name: ESTEFANIA CEDEÑO MRN: [facility]:[id number] date: 1995 Sex: F Assigned Patient [facility]: [facility] Current Patient Location: [facility] Accession/Order Number: [id number] Exam Date: 12/15/2023 10:33 Report Date: 12/15/2023 [...] Dr. Cervantes was notified of findings by buyer renter at time of imaging. Electronically authenticated by: ED KRUEGER Date: 12/15/2023 12:01 Dictated By: Ed Krueger M.D. Signed By:12/15/23 1204 DD/ 1201 TD/TT: Tnt Powder Worker: us Bruce Billy DO [facility] Final Result * [facility] BOX TEST SENT OUT (12/15/2023 11:10 AM EDT) BOX TEST SENT OUT see scanned report [facility] 12/15/2023 11:1 0 AM EDT 12/16/2023 8:10 AM EDT Narrative [facility] - 12/19/2023 12:56 PM EDT us Bruce Billy DO [facility] Final Result [facility] TB documented in this encounter Visit Diagnoses Not on filedocumented in this encounter
--- OUTSIDE RECORDS SUMMARY | 2025-01-23 08:19 | XMS_ITS | Encounter Summary ---
Author Organization [facility] Address [address] [place] [address] Care Team Providers Care Tax Accounting Manager Name Role Phone Unavailable Primary Care Provider Unavailabl e Encounter Details Date Type Department Care Team (Late st Contact Info) Description 01/11/2024 Abstract [facility] [address] [facility] [place] [phone] Aditya Cervantes DO [address] [facility] [address] [place], [id number] Social History Tobacco Use Types Packs/Day Years [...] 01/23/2025 9:50 AM EDT Routine DENISE C[facility] [address] [place] [address] [place] [phone] Latasha Padgett PA [address] [facility] [address] [place], [place] [phone] 02/06/2025 10:10 AM EDT Routine NOM[facility] Carlos CESAR [address] [place], [place] [address] [phone] Aditya Cervantes DO [address] [place], [place] [phone] documented as of this encounter Visit Diagnoses Not on filedocumented in this encounter
--- OUTSIDE RECORDS SUMMARY | 2025-01-23 08:19 | XMS_ITS | Encounter Summary ---
Author Organization [facility] Address [address] [place] [address] Care Team Providers Care Shellfish Farming Supervisor Name Role Phone Unavailable Primary Care Provider Unavailabl e Encounter Details Date Type Department Care Team (Late st Contact Info) Description 01/09/2025 Abstract DENISE CESAR [address] [place] [address] [place] [address] Aditya Cervantes, DO [address] [facility] [address] [place], [facility] Social History Tobacco Use Types Packs/Day [...] 9:50 AM EDT Routine NOMJean Carlos CESAR [address] [place] [address] [place] [address] Latasha Padgett PA [address] [place], [facility] 02/06/2025 10:10 AM EDT Routine DENISE CESAR [address] [place], [place] [address] [address] Aditya Cervantes, DO [address] [place], [facility] documented as of this encounter Visit Diagnoses Not on filedocumented in this encounter
--- OUTSIDE RECORDS SUMMARY | 2025-01-23 08:19 | XMS_ITS | Encounter Summary ---
Author Organization [facility] Address [address] [place] [address] Care Team Providers Care Head Of Merchandise Buying Name Role Phone Unavailable Primary Care Provider Unavailabl e Encounter Details Date Type Department Care Team (Late st Contact Info) Description 09/19/2024 Abstract DENISE CESAR [address] [place] [address] [place] [address] Aditya Cervantes, DO [address] [facility] [address] [place], [facility]11 Social History Tobacco Use Types Packs/Day [...] 9:50 AM EDT Routine NOMJean Carlos CESAR [address] [place] [address] [place] [phone] Latasha Padgett PA [address] [place], [facility]11 02/06/2025 10:10 AM EDT Routine DENISE CESAR [address] [place], [place] [address] [address] Aditya Cervantes, DO [address] [place], [facility]11 documented as of this encounter Visit Diagnoses Not on filedocumented in this encounter
--- OUTSIDE RECORDS SUMMARY | 2025-01-23 08:19 | XMS_ITS | Encounter Summary ---
Author Organization [facility] Address [address] [facility], [address] [place] [address] Care Team Providers Care Instructional Facilitator Name Role Phone Billie Sharpe GROUP SUPERVISOR YARD - SLATE ROOFER Primary Care Provider Reason for Referral * Other (Routine) - Closed Specialty Diagnoses / Procedures Referred By Ryder choi Referred To Contact Radiology Diagnoses Abdominal pain, unspecified abdominal location Abdominal bloating Procedures US PELVIS COMPLETE NON-OB TRANSABDOMINAL AND TRANSVAGINAL Aditya Cervantes MD [address] [place] [place] [address] Phone: tel: Referral ID Status Reason Start Date Expiration Date Visits Re quested Visits Authorized [id number] Closed 03/24/2023 03/23/2024 1 1 Encounter Details Date Type Department Care Team (Late st Contact Info) Description 03/24/2023 Transcribe Orders Trent Pre Access [address] [place] [address] Aditya Cervantes MD [facility] [place] [address] Abdominal pain, unspecified abdominal location (Primary Dx); [...] recommended. Reference: Radiology 2019 Nov;293(2):359-371 us Aditya Stefan Cervantes MD IMG US ORDERABLES Final R esult documented in this encounter Visit Diagnoses Diagnosis Abdominal pain, unspecified abdominal location- Primary Abdominal bloating Flatulence, eructation, and gas pain Abdominal pain, unspecified abdominal location Abdominal bloating Flatulence, eructation, and gas pain documented in this encounter Care Teams Instructional Facilitator Relationship Specialty Start Date End Date Billie Sharpe, GROUP SUPERVISOR YARD - SLATE ROOFER PCP - General Family Medicine 04/08/20 documented as of this encounter
--- OUTSIDE RECORDS SUMMARY | 2025-01-23 08:19 | XMS_ITS | Encounter Summary ---
Author Organization [facility] Address [address] [place] [address] Care Team Providers Care Outpatient Facility Physical Therapist Name Role Phone Unavailable Primary Care Provider Unavailabl e Encounter Details Date Type Department Care Team (Late st Contact Info) Description 12/23/2023 Clinisync Result Encounter [facility] External Department Unsolicited Bruce Cervantes DO [address] [place], [place] [phone] Social History Tobacco Use Types Packs/Day Years [...] 9:50 AM EDT Routine [facility] [address] [place] [address] [place] [address] Latasha Padgett PA [address] [facility] [address] [place], [place] [phone] 02/06/2025 10:10 AM EDT Routine [facility] [address] [place] [address] Bruce Cervantes DO [address] [place], [place] [phone] documented as of this encounter Procedures Procedure Name Priority Date/Time Associated Diagnosis Comments US OB BPP W NON-STRESS 12/23/2023 10:41 AM EDT documented in this encounter Results * US OB BPP W NON-STRESS (12/23/2023 10:41 AM EDT) Anatomical Region Laterality Modality Other 12/23/2023 10:4 1 AM EDT Narrative 12/23/2023 10:43 [place] [address] Ultrasound Report Signed Patient: ESTEFANIA CEDEÑO MR#: [id number] : 1995 Acct:[id number] Age/Sex: 28 / F ADM Date: 12/23/23 Loc: [facility] 254-[address]: Bruce Cervantes D.O. Ordering Physician: Bruce Cervantes D.O. Date of Service: 12/23/23 Procedure(s): US OB BPP w non-stress Accession Number(s): [id number] cc: Bruce Cervantes D.O.; Physician,Non-Staff M.DAsiya [place] [address] Patient Name: ESTEFANIA CEDEÑO MRN: [facility]:[id number] date: 1995 Sex: F Assigned Patient Location: [facility] Current Patient Location: [facility] Accession/Order Number: [id number] Exam Date: 12/23/2023 10:00 Report Date: 12/23/2023 [...] Signed By: 12/23/23 1043 DD/ 1041 TD/TT: Back End Web Developer: Procedure Note Radiology, Radiologist, - 12/23/2023 [place] [address] Ultrasound Report Signed Patient: TRINITY CEDEÑO#: [id number] : 1995Acct:[id number] Age/Sex: FADM Date: 12/23/23 Loc: [facility] 254-[address]: Bruce Cervantes D.O. Ordering Physician: Bruce Cervantes D.O. Date of Service: 12/23/23 Procedure(s): US OB BPP w non-stress Accession Number(s): [id number] cc: Bruce Cervantes D.O.; Physician,Non-Staff Roberto The [place] [address] Patient Name: ESTEFANIA CEDEÑO MRN: [facility]:[id number] date: 1995 Sex: F Assigned Patient Location: [facility] Current Patient Location: [facility] Accession/Order Number: [id number] Exam Date: 12/23/2023 10:00 Report Date: 12/23/2023 [...] M.D. Signed By:12/23/23 1043 DD/ 1041 TD/TT: Back End Web Developer: us Bruce Cervantes DO [facility] Final Result documented in this encounter Visit Diagnoses Not on filedocumented in this encounter
--- OUTSIDE RECORDS SUMMARY | 2025-01-23 08:19 | XMS_ITS | Encounter Summary ---
Author Organization [facility] Address [address] [facility] [place] [address] Care Team Providers Care Power Generation Technician Name Role Phone Unavailable Primary Care Provider Unavailabl e Encounter Details Date Type Department Care Team (Late st Contact Info) Description 10/04/2023 Clinisync Result Encounter [facility] External Department Unsolicited Bruce Cervantes DO [address] [place], [place] [phone] Social History Tobacco Use Types Packs/Day Years [...] 9:50 AM EDT Routine [facility] [address] [place] [address] [place] [address] Latasha Padgett PA [address] [facility] [address] [place], [place] [phone] 02/06/2025 10:10 AM EDT Routine [facility] [address] [place] [address] Bruce Cervantes DO [address] [place], [place] [phone] documented as of this encounter Procedures Procedure Name Priority Date/Time Associated Diagnosis Comments US RIGHT UPPER QUADRANT 10/04/2023 2:02 PM EDT [facility] LIPASE Routine 10/04/2023 1:40 PM EDT [facility] CMP (CMP) (FOR REMOTE [facility] USE) Routine 10/04/2023 1:40 PM EDT ALL AMYLASE Routine 10/04/2023 1:40 PM EDT OVA + PARASITE EXAM Routine 10/04/2023 1 :00 PM EDT documented in this encounter Results * US RIGHT UPPER QUADRANT (10/04/2023 2:02 PM EDT) Anatomical Region Laterality Modality Other 10/04/2023 2:02 PM EDT Narrative 10/04/2023 2:05 [place] [address] Ultrasound Report Signed Patient: ESTEFANIA CEDEÑO MR#: [id number] : 1995 Acct:[id number] Age/Sex: 28 / F ADM Date: Loc: [facility] 257-[address]: Bruce Cervantes D.O. Ordering Physician: Bruce Cervantes D.O. Date of Service: 10/04/23 Procedure(s): US right upper quadrant Accession Number(s): [id number] cc: Bruce Cervantes D.O.; Physician,Non-Staff M.D. The [place] [id number] Patient Name: ESTEFANIA CEDEÑO MRN: [facility]:[id number] date: 1995 Sex: F Assigned Patient Location: [facility] Current Patient Location: [facility] Accession/Order Number: [id number] Exam Date: 10/04/2023 13:10 Report Date: 10/04/2023 [...] Signed By: 10/04/23 1405 DD/ 1402 TD/TT: Community Resource Consultant: Procedure Note Radiology, Radiologist, MD - 10/04/2023 [place] [address] Ultrasound Report Signed Patient: TRINITY CEDEÑO#: [id number] : 1995Acct:[id number] Age/Sex: 28 / FADM Date: Loc: [facility] 257-[address]: Bruce Cervantes D.O. Ordering Physician: Bruce Cervantes D.O. Date of Service: 10/04/23 Procedure(s): US right upper quadrant Accession Number(s): [id number] cc: Bruce Cervantes D.O.; Physician,Non-Staff Roberto The [place] [id number] Patient Name: ESTEFANIA CEDEÑO MRN: [facility]:[id number] date: 1995 Sex: F Assigned Patient Location: [facility] Current Patient Location: [facility] Accession/Order Number: [id number] Exam Date: 10/04/2023 13:10 Report Date: 10/04/2023 [...] M.D. Signed By:10/04/23 1405 DD/ 1402 TD/TT: Community Resource Consultant: us Bruce Billy DO [facility] Final Result * [facility] LIPASE (10/04/2023 1:40 PM EDT) LIPASE 30.0 16.0 - 77.0 U/L [facility] 10/04/2023 1:40 PM EDT 10/04/2023 1:45 PM EDT Narrative [facility] - 10/04/2023 2:26 PM EDT us Bruce Billy DO [facility] Final Result [facility] TB * (ABNORMAL) [facility] CMP (CMP) (FOR REMOTE [facility] USE) (10/04/2023 1:40 PM EDT) SODIUM 137 136 - 145 mmol/L [facility] POTASSIUM 3.5 3.5 - 5.1 mmol/L [facility] CHLORIDE 106 98 - 107 mmol/L [facility] CARBON DIOXIDE 20.4(L) 21.0 - 32.0 mmol/L [facility] ANION GAP 14.1 [facility] GLUCOSE 72(L) 74 - 106 mg/dL [facility] BLOOD UREA NITROGEN 6.0(L) 7.0 - 18.0 mg/dL [facility] CREATININE 0.39(L) 0.55 - 1.02 mg/dL [facility] EGFR-AF GABONESE >60 >=60 [facility] EGFR-NON AF GABONESE >60 >=60 [facility] BUN CREATININE RATIO 15.4 [...] Narrative [facility] - 10/04/2023 2:26 PM EDT [facility] Billy DO [facility] Final Result Performing Organization Address [facility] de Phone Number [facility] * ALL AMYLASE (10/04/2023 1:40 PM EDT) Pathologist [facility] AMYLASE 58 25 - 115 U/L [facility] 10/04/2023 1:40 PM EDT 10/04/2023 1:45 PM EDT Narrative [facility] - 10/04/2023 2:14 PM EDT [facility] Final Result Performing Organization Address [facility] Phone Number [facility] * OVA + PARASITE EXAM (10/04/2023 1:00 PM EDT) OVA + PARASITE EXAM Final report . [facility] Comment: These results were obtained using wet preparation(s) and trichrome stained smear. This test does not include testing for Cryptosporidium parvum, Cyclospora, or Microsporidia. RESULT 1 Comment . [facility] Comment: No ova, cysts, or parasites seen. One negative specimen does not rule out the possibility of a parasitic infection. Performed at: [address] [id number] Inspector Tool: Rubén Ellison PhD, Phone: [phone] 10/04/2023 1:00 PM EDT 10/04/2023 1:52 PM EDT Narrative [facility] - 10/06/2023 9:09 PM EDT us Brcue Cervantes DO LAB BLOOD ORDERABLES Final Resul t [facility] TB documented in this encounter Visit Diagnoses Not on filedocumented in this encounter
--- OUTSIDE RECORDS SUMMARY | 2025-01-23 08:20 | XMS_ITS | Clinical Summary ---
Author Organization [facility] Address [address], [address] [place] [address] Care Team Providers Care Cradle Slide Maker Name Role Phone Billie Sharpe CONSERVATION OFFICER - SOLAR THERMAL TECHNICIAN Primary Care Provider Allergies Active Allergy Reactions [...] genitalia 06/30/2011 Overview (11/20/2014): Overview: Documented HSV-1 Immunizations Immunization Administration Dates Next Due TDaP, [...] 02/07/2018 Chlamydia/GC screen Discontinued 02/07/2018 HPV vaccine (No Doses Required) Completed Hepatitis A vaccine Aged Out No longe [...] Procedure Name Priority Date/Time Associated Diagnosis Comments OPERATIONS RESEARCH GROUP MANAGER CYTOLOGY Routine 01/01/2023 12:00 AM EDT C.TRACHOMATIS N.GONORRHOEAE DNA, THIN PREP Routine 02/07/2018 1:05 PM EDT Screen for STD (sexually transmitted disease) from Last 3 Months or Most Recently Relevant to Health Maintenance Results * OPERATIONS RESEARCH GROUP MANAGER Cytology (01/01/2023 12:00 AM EDT) Cytology Report Path Number: [id number] DIAGNOSIS Imaged ThinPrep Pap - Cervical (1 [...] Abnormal Clinical History Intrauterine device Z01.419 Routine business banking sales assistant exam without abnormal findings High risk HPV DNA testing is requested if the diagnosis is abnormal Processing Lab: [address] [address] Interpretation performed at [address] [address] This Pap Test has been evaluated with the assistance of the [employer] Pap Test Imaging System. The Pap smear is a screening test primarily for squamous epithelial lesions, which is subject to both false negative and false positive results. Your patient should be reminded to consult you immediately if she experiences any suspicious signs or symptoms, regardless of her Pap smear result. GYNECOLOGIC CYTOLOGY REPORT Patient Name: ESTEFANIA CEDEÑO [facility] Rec: [id number] [facility] ANATOMIC PATHOLOGY [facility]. [place], [place] [address] [facility] Automation Alley CERVICAL MATERIAL 01/01/2023 023 7:03 AM EDT us Mychal Nichols MD PATHOLOGY/CYTOLOGY ORDERABLES Final Result [facility] [address] [phone] [facility] Qual Canal * C.trachomatis N.gonorrhoeae DNA, Thin Prep (02/07/2018 1:05 PM EDT) Chlamydia By Thin Prep NEGATIVE NEG 02/09/2018 2:02 PM EDT [facility] Comment: CHLAMYDIA TRACHOMATIS DNA not detected by [...] Prep NEGATIVE NEG 02/09/2018 2:02 PM EDT [facility] Comment: NEISSERIA GONORRHOEAE DNA not detected by [...] PM EDT 02/07/2018 1:05 PM EDT Pilar Pinto rFank CONSERVATION OFFICER - CNM MICROBIOLOGY - GENERA L ORDERABLES Final Result [facility] [address] [place] [address], [facility] [phone] [facility] [address] [place] [address], [facility] [phone] from Last 3 Months or Most Recently Relevant to Health Maintenance Insurance Advance Directives * Full Code (Latest Code Status on File) Date Activated Date Inactivated Comments 01/20/2023 7:21 AM 01/20/2023 3:02 PM Care Teams Cradle Slide Maker Relationship Specialty Start Date End Date Billie Sharpe, CONSERVATION OFFICER - SOLAR THERMAL TECHNICIAN PCP - General Family Medicine 04/08/20
--- OUTSIDE RECORDS SUMMARY | 2025-01-23 08:20 | XMS_ITS | Encounter Summary ---
Author Organization [facility] Address [address], [address] [place] [address] Care Team Providers Care Library Customer Service Clerk Name Role Phone DellBillie ferrer Jamal BODY AND FENDER MECHANIC APPRENTICE - COMMUNITY HEALTH NURSE SUPERVISOR Primary Care Provider Reason for Referral * Imaging (Routine) - Closed Specialty Diagnoses / Procedures Referred By Contac t Referred To Contact Radiology Diagnoses Menstrual problem Procedures US NON OB TRANSVAGINAL Dana Akins MD [address] [place] [address] Phone: tel: fax: [facility] Ultrasound [address] [place] [address] Phone: tel: Referral ID Status Reason Start Date Expiration Date Visits Re quested Visits Authorized [id number] Closed 08/15/2020 08/15/2021 1 1 * Imaging (Routine) - Closed Specialty Diagnoses / Procedures Referred By Contac t Referred To Contact Radiology Diagnoses Menstrual problem Procedures US PELVIS COMPLETE Dana Akins MD [address] [place] [address] Phone: tel: fax: [facility] Ultrasound [address] [place] [address] Phone: tel: Referral ID Status Reason Start Date Expiration Date Visits Re quested Visits Authorized [id number] Closed 08/15/2020 08/15/2021 1 1 Encounter Details Date Type Department Care Team (Latest Contact Info) Description 08/15/2020 Transcribe Orders Trent Pre Access [address] [place] [address] Dana Akins MD [address] [place] [address] Menstrual problem (Primary Dx) Social History Tobacco [...] tract documented in this encounter Care Teams Library Customer Service Clerk Relationship Specialty Start Date End Date Billie Sharpe, BODY AND FENDER MECHANIC APPRENTICE - COMMUNITY HEALTH NURSE SUPERVISOR PCP - General Family Medicine 04/08/20 documented as of this encounter
--- OUTSIDE RECORDS SUMMARY | 2025-01-23 08:26 | XMS_ITS | CCD ---
Author Organization [facility] Care Team Providers Care Patient Case Coordinator Name Role Phone NO FAMILY PHYSICIAN, 837 Unavailable Unavail able FELIX GALVAN Unavailable Unavailable Miguel Holley Primary Care Provider Jackson Haas Primary Care Provider [phone] Miguel Holley Primary Care Provider [phone] Miguel Holley Primary Care Provider Miguel Holley CNP Primary Care Provider [phone] Dell WARRANT SERVER - Miguel IVORY Primary Care Provider MIGUEL HOLLEY Referring Unavailable MIGUEL HOLLEY Primary Care Unavailable Dell WARRANT SERVER - DIANELYS, Miguel Berry Primary Care Provider Dell WARRANT SERVER - DIANELYS, Miguel Berry Primary Care Provider Shona Lucio Primary Care Physician Yeison Holley WARRANT SERVER - HANGING FLAGS DECORATOR, Miguel Berry Primary Care Provider Dell WARRANT SERVER - Miguel IVORY Primary Care Provider Unavailable [...] Hour] Drug Allergy 03-05-20 20 Wellbutrin SR [facility] Work Phone: Corticosteroids (6 sources) Triamcinolone Drug Allergy 10-14-19 14 Other (See Comments) [facility] Lisdexamfetamine (1 source) Lisdexamfetamine Drug Allergy 10-04-19 21 Vyvanse [facility] Work Phone: Naltrexone (4 sources) Naltrexone; Translations: [Naltrexone HCl 50 MG Oral Tablet] Drug Allergy 03-05-20 20 Naltrexone HCl [facility] Work Phone: (1 source) Triamcinolone; Translations: [TRIAMCINOLONE ACETONIDE] Drug Allergy 10-12-19 15 [facility] Repository (16 sources) Triamcinolone; Translations: [Kenalog] Drug Allergy 07-06-19 20 [facility] Work Phone: (20 sources) Triamcinolone Drug Allergy 10-14-19 14 Other (See Comments), Other, H[place] (17 sources) Poison spencer Allergy to substance 07-20-19 [facility] Work Phone: (3 sources) buPROPion; Translations: [Wellbutrin SR 100 MG Oral Tablet Extended Release 12 Hour] Drug Allergy 03-05-20 20 Wellbutrin SR [facility] Work Phone: (3 sources) Naltrexone; Translations: [Naltrexone HCl 50 MG Oral Tablet] Drug Allergy 03-05-20 20 Naltrexone HCl [facility] Work Phone: (20 sources) Other Propensity to [...] aspirin 81 mg delayed release oral tablet (17 sources) Platelet Aggregation Inhibitor, Nonsteroidal Anti-inflammator y [...] Active Continuous Glucose Sensor (Dexcom G6 Sensor) mis (9 sources) Start: 01-18-2025 Continuous Glucose Sensor (Dexcom G6 Sensor) [facility] Indications: Elevated glucose tolerance test , 28 weeks gestation of ([facility]) , Gestational diabetes mellitus (GDM), antepartum, gestational diabetes method of control unspecified ([facility]) 1 each Every 10 (ten) days 3 each 3 01/18/2025 Active Start: 12-13-2024 Continuous Glu cose Sensor (Dexcom G6 Sensor) mis Indications: Elevated glucose tolerance test , 28 weeks gestation of ([facility]) , Gestational diabetes mellitus (GDM), antepartum, gestational diabetes method of control unspecified ([facility]) 1 each Every 10 (ten) days 3 each 3 12/13/2024 Active Continuous Glucose Transmitt er (Dexcom G6 transmitter) misc (7 sources) Start: 12-19-2024 Continuous Glu cose Transmitter (Dexcom G6 transmitter) [facility] Indications: Gestational diabetes mellitus (GDM), antepartum, gestational diabetes method of control unspecified ([facility]) Use as instructed 1 each 12/19/2024 Active [...] ibuprofen 800 MG tablet 01/06/2024 Active levonorgestrel 0.437788 mg/hr intrauterine system (17 sources) Progestin, Progestin-containin g Intrauterine Device Start : 07-20 Mirena (52 MG) 20 MCG/24HR Intrauterine Intrauterine device 07/20/2019 Provider: 24 hr metFORMIN hydrochloride 500 mg extended release oral tablet (10 sources) Biguanide Start : 06-14 End: 06-14 take 1 tablet by mouth every twenty-four hours at mealtime metFORMIN XR (Glucophage-XR) 500 MG 24 hr tablet Indications: Hyperglycemia during ([facility]) Take 1 tablet (500 mg) by mouth [...] Tablet 08/17/2019 - 09/14/2019 Provider: Miguel Holley HANGING FLAGS DECORATOR polysaccharide iron complex 391 mg oral capsule [...] of normal first in first trimester ([facility]) Take 1 tablet by mouth Daily 30 [...] 03-19-2020 Episodic Other and delivery including normal (20 [...] Value Interpretation Reference Range Facility US OB BPP W NON-STRESS on 01-19-2025 [place] [address] Ultrasound Report Signed Patient: ALFREDO CEDEÑONAOctavia Boggs MR#: [id number] : 1995 Acct:[id number] Age/Sex: 29 / F ADM Date: 01/19/25 Loc: US Attending Dr: Aditya Cervantes D.O. Ordering Physician: Aditya Cervantes D.O. Date of Service: 01/19/25 Procedure(s): US OB BPP w non-stress Accession Number(s): [id number] cc: Aditya Cervantes D.O.; Physician,Non-Staff Roberto The [address] [address] Patient Name: ESTEFANIA CEDEÑO MRN: [facility]:[id number] date: 1995 Sex: F Assigned Patient Location: [facility] Current Patient Location: Accession/Order Number: [id number] Exam Date: 01/19/2025 09:10 Report Date: 01/19/2025 14:26 At the request of: ADITYA CERVANTES DO Procedure: US OB BPP w [...] Saez M.D. 01/19/2025 2:26 PM Dictation Location: [place] [address] Electronically authenticated by: [id number] Y Date: 01/19/2025 14:26 Dictated By: Carroll Saez D.O. Signed By: 01/19/25 1429 DD/ 1426 TD/TT: Hydro Operator: Isma Lopez MD - 01/19/[address] [address] Ultrasound Report Signed Patient: ESTEFANIA CEDEÑO MR#: [id number] : 1995 Acct:[id number] Age/Sex: 29 / F ADM Date: 01/19/25 Loc: US Attending Dr: Aditya Cervantes D.O. Ordering Physician: Aditya Cervantes D.O. Date of Service: 01/19/25 Procedure(s): US OB BPP w non-stress Accession Number(s): [id number] cc: Aditya Cervantes D.O.; Physician,Non-Staff Roberto [place] [address] Patient Name: ESTEFANIA CEDEÑO MRN: [facility]:[id number] date: 1995 Sex: F Assigned Patient Location: [facility] Current Patient Location: Accession/Order Number: [id number] Exam Date: 01/19/2025 09:10 Report Date: 01/19/2025 14:26 At the request of: ADITYA CERVANTES DO Procedure: US OB BPP w [...] Saez M.D. 01/19/2025 2:26 PM Dictation Location: [place] [address] Electronically authenticated by: [id number] Y Date: 01/19/2025 14:26 Dictated By: Carroll Saez D.O. Signed By: 01/19/25 1429 DD/ 1426 TD/TT: Hydro Operator: [facility] Radiology Study observation (narrative) [facility] US OB BPP W NON-STRESS Ordered By: Radiologist Radiology on 01-19-2025 [facility] Work Phone: Urinalysis macro (dipstick) panel (U)on 01-09-2025 Bilirubin, UA Negative Negative - 4(70) +++ mg/dL [facility] Blood, UA Negative Negative - 50 Chuy/mcL [facility] Clarity, UA Clear [facility] Color, UA Yellow [facility] Glucose, UA Negative Negative - 1999(110) ++++ mg/dL [facility] Interpretation and review of laboratory results Normal [facility] Ketones, UA Negative Negative - 160(16) ++++ mg/dL [facility] Leukocytes, UA Negative Negative - 500+++ Sadi/mcL [facility] Nitrite, UA Negative Negative - Positive [facility] pH, UA 6.5 5 - 9 [facility] Protein, UA Negative Negative - 1999(20) ++++ mg/dL [facility] Spec Grav, UA 1.015 1 - 1.03 [facility] Urobilinogen, UA 1.0 0.2 - 12 mg/dL [facility] US OB FOLLOW UP TRANSABDOMIN AL APPROACHon [...] 03/04/2025. Interpreted by: Electronically signed by PENG JOHNSNO II, MD, PHD at 28-Dec-2024 08:33:38 AM [facility] Normal Not Available Comment on above: Order Comment: US OB SCAN FOR GROWTH Estimated Date of Delivery: 03/06/25 Gestational Age as of 12/13/2024: 28w1d Urinalysis macro (dipstick) panel (U)on 12-27-2024 Bilirubin, UA Negative Negative - 4(70) +++ mg/dL [facility] Blood, UA Negative Negative - 50 Chuy/mcL [facility] Clarity, UA Clear [facility] Color, UA Yellow [facility] Glucose, UA Positive Negative - 1999(110) ++++ mg/dL [facility] Interpretation and review of laboratory results Abnormal [facility] Ketones, UA Negative Negative - 160(16) ++++ mg/dL [facility] Leukocytes, UA Negative Negative - 500+++ Sadi/mcL [facility] Nitrite, UA Negative Negative - Positive [facility] pH, UA 6 5 - 9 [facility] Protein, UA Positive Negative - 1999(20) ++++ mg/dL [facility] Spec Grav, UA 1.02 1 - 1.03 [facility] Urobilinogen, UA 1.0 0.2 - 12 mg/dL [facility] Urinalysis macro (dipstick) panel (U)on 12-13-2024 Bilirubin, UA Negative Negative - 4(70) +++ mg/dL [facility] Blood, UA Negative Negative - 50 Chuy/mcL [facility] Clarity, UA Clear [facility] Color, UA Yellow [facility] Glucose, UA Negative Negative - 1999(110) ++++ mg/dL [facility] Interpretation and review of laboratory results Normal [facility] Ketones, UA Negative Negative - 160(16) ++++ mg/dL [facility] Leukocytes, UA Negative Negative - 500+++ Sadi/mcL [facility] Nitrite, UA Negative Negative - Positive [facility] pH, UA 6 5 - 9 [facility] Protein, UA Negative Negative - 1999(20) ++++ mg/dL [facility] Spec Grav, UA 1.015 1 - 1.03 [facility] Urobilinogen, UA 1.0 0.2 - 12 mg/dL [facility] GLUCOSE TOLERANCE 3 HOURon 0 12-12-2024 GLUCOSE TOLERANCE 3 HOUR High mg/dL [facility] Comment on above: GLU FAST 85 (<95) Co l: 12/12/24 1118 GLU 1HR 198H (<180) Col: 12/12/24 1220 GLU 2HR 171H (<155) Col: 12/12/24 1320 GLU 3HR 74 (<140) Col: 12/12/24 1422 Interpretation and review of laboratory results Abnormal [facility] ECG 12-LEADon 12-07-2024 [place] [address] Electrocardiograph Report Signed Patient: ESTEFANIA CEDEÑO MR#: [id number] : 1995 Acct:[id number] Age/Sex: 29 / F ADM Date: 12/05/24 Loc: CR Attending Dr: Latasha Padgett Ordering Physician: Latasha Padgett Date of Service: 12/05/24 Procedure(s): ECG 12 lead Accession Number(s): [id number] cc: [facility] Test Date: 2024-12-05 Pat Name: ESTEFANIA CEDEÑO Department: Room: - Gender: Female Director Export: : 1995 Requested By: 0923 Order Number: [id number] Reading MD: ANTON THORPE Measurements Intervals Drake Rate: 68 P: 55 AK: 116 QRS: 72 QRSD: 94 T: 14 QT: 411 QTc: 439 Interpretive Statements SINUS RHYTHM WITH SHORT AK INTERVAL NONSPECIFIC T-WAVE ABNORMALITY No previous ECG available for comparison Electronically Signed On 12-07-2024 9:00:49 EDT by ANTON THORPE Dictated By: Anton Thorpe M.D. Signed By: 12/07/24 0912/07/24 09 DD/ 0907 TD/TT: Hydro Operator: [facility] RadiologyBisiogestefania andrade MD - 12/07/2024 The [place] [id number] Electrocardiograph Report Signed Patient: ESTEFANIA CEDEÑO MR#: [id number] : 1995 Acct:[id number] Age/Sex: 29 / F ADM Date: 12/05/24 Loc: CR Attending Dr: Latasha Padgett Ordering Physician: Latasha Padgett Date of Service: 12/05/24 Procedure(s): ECG 12 lead Accession Number(s): [id number] cc: [facility] Test Date: 2024-12-05 Pat Name: ESTEFANIA CEDEÑO Department: Room: - Gender: Female Director Export: : 1995 Requested By: 0923 Order Number: [id number] Reading MD: ANTON THORPE Measurements Intervals Drake Rate: 68 P: 55 AK: 116 QRS: 72 QRSD: 94 T: 14 QT: 411 QTc: 439 Interpretive Statements SINUS RHYTHM WITH SHORT AK INTERVAL NONSPECIFIC T-WAVE ABNORMALITY No previous ECG available for comparison Electronically Signed On 12-07-2024 9:00:49 EDT by ANTON THORPE Dictated By: Anton Thorpe M.D. Signed By: 12/07/2489912/07/24899 DD/ 6 TD/TT: Hydro Operator: [facility] ECG 12-LEADOrdered By: Radio logist Radiology on 12-07-2024 [facility] Work Phone: ALL CBC WITH AUTO DIFFon BASOPHILS ABSOLUTE AUTO 0 [facility] Basophils/100 WBC (Bld) 0.2 % 0.2 - 2.0 % [facility] Eosinophils/100 WBC (Bld) 0.6 % Low 0.9 - 7.0 % [facility] Erythrocyte distribution width (RBC) [Ratio] 13.7 % 11.0 - 15.0 % [facility] Hematocrit (Bld) [Volume fraction] 34.3 % Low 36.0 - 48.0 % [facility] Hemoglobin (Bld) [Mass/Vol] 11.5 g/dL Low 12.0 - 16.0 g/dL [facility] IMMATURE GRANULOCYTES ABS AUTO 0.08 High [facility] Immature granulocytes/100 WBC (Bld) 0.7 % High 0.0 - 0.5 % [facility] Interpretation and review of laboratory results Abnormal [facility] LYMPHOCYTES ABSOLUTE AUTO 2.1 [facility] Lymphocytes/100 WBC (Bld) 18.9 % Low 20.5 - 60.0 % [facility] MCH (RBC) [Entitic mass] 27.8 pg 26.7 - 34.0 pg [facility] MCHC (RBC) [Mass/Vol] 33.5 g/dL 29.9 - 35.2 g/dL [facility] MCV (RBC) [Entitic vol] 82.9 fL 81.0 - 99.0 fL [facility] MONOCYTES ABSOLUTE AUTO 0.5 [facility] Monocytes/100 WBC (Bld) 4 % 1.7 - 12.0 % [facility] NEUTROPHILS ABSOLUTE AUTO 8.6 High [facility] Neutrophils/100 WBC (Bld) 75.6 % High 43.0 - 75.0 % [facility] Platelet mean volume (Bld) [Entitic vol] 11.1 fL 9.5 - 13.5 fL [facility] TBH EO # 0.1 [facility] PLT 140 Low [facility] RBC 4.14 Low [facility] WBC 11.3 High [facility] ECG 12-LEADon 12-05-2024 Radiology Study observation (narrative) [facility] Urinalysis macro (dipstick) panel (U)on 11-22-2024 Bilirubin, UA Negative Negative - 4(70) +++ mg/dL [facility] Blood, UA Negative Negative - 50 Chuy/mcL [facility] Clarity, UA Clear [facility] Color, UA Yellow [facility] Glucose, UA Negative Negative - 1999(110) ++++ mg/dL [facility] Interpretation and review of laboratory results Abnormal [facility] Ketones, UA Positive Negative - 160(16) ++++ mg/dL [facility] Comment on above: trace Leukocytes, UA Negative Negative - 500+++ Sadi/mcL [facility] Nitrite, UA Negative Negative - Positive [facility] pH, UA 6.5 5 - 9 [facility] Protein, UA Negative Negative - 1999(20) ++++ mg/dL [facility] Spec Grav, UA 1.025 1 - 1.03 [facility] Urobilinogen, UA 0.2 0.2 - 12 mg/dL [facility] MHPT AFP, MATERNALon 10-30- 025 MHPT DETERMINED BY Ultrasound [facility] MHPT DUE DATE SEE NOTE [facility] Comment on above: Results for Estimate d Due Date: 03 06 25 MHPT FAMILY HISTORY No [facility] MHPT GESTAT AGE (EXACT) 20 wks, 0 days [facility] MHPT INS REQ MATERN DIAB No [facility] MHPT INTERPRETATION Screen Neg [facility] Comment on above: (NOTE) INTERPRETATION: SCREEN NEGATIVE for open spina bifida Neural Tube Defects (NTD) Negative Pre-Test Post-Test Cutoff Neural Tube Defects Risks 1:1030 < 1:63619 1:250 Comments: The risk of an open neural tube defect is less than the screening cut-off. This test was developed and its performance characteristics determined by [facility]. It has not been cleared or approved by the US Food and Drug Administration. This test was performed in a CLIA certified laboratory and is intended for clinical purposes. MHPT [age] [facility] MHPT MATERNAL RACE Nonblack [facility] MHPT MATERNAL WEIGHT 234.0 lbs. [facility] NUM[facility] OF FETUSES [facility] MHPT PATIENT'S AFP 36 ng/mL [facility] MHPT SMOKING Unknown [facility] SPECIMEN See Note [facility] Comment on above: (NOTE) Initial sample Performed By: [facility] [address] [place] [id number] Software Sales Representative: Pranay Rousseau MD, PhD [place] Number: [id number] Original Ordering Provider[facility] Urinalysis macro (dipstick) panel (U)on 10-25-2024 Bilirubin, UA Negative Negative - 4(70) +++ mg/dL [facility] Blood, UA Negative Negative - 50 Chuy/mcL [facility] Clarity, UA Clear [facility] Color, UA Yellow [facility] Glucose, UA Negative Negative - 2000(110) ++++ mg/dL [facility] Interpretation and review of laboratory results Normal [facility] Ketones, UA Negative Negative - 160(16) ++++ mg/dL [facility] Leukocytes, UA Negative Negative - 500+++ Sadi/mcL [facility] Nitrite, UA Negative Negative - Positive [facility] pH, UA 5.5 5 - 9 [facility] Protein, UA Negative Negative - 2000(20) ++++ mg/dL [facility] Spec Grav, UA 1.03 1 - 1.03 [facility] Urobilinogen, UA 0.2 0.2 - 12 mg/dL [facility] AFP, Maternalon 10-20-2024 Determined by Ultrasound Normal [facility] Comment on above: Performed By: #### A AFPM #### [facility] [address] [place] [address] Paper Feeder: Dallas Xiong MD Due Date SEE NOTE [facility] Comment on above: Result Comment: Resu lts for Estimated Due Date: 03 06 25 Performed By: #### A AFPM #### [facility] [address] [place] [address] Paper Feeder: Dallas Xiong MD Family History No [facility] Comment on above: Performed By: #### A AFPM #### [facility] [address] [place] [address] Paper Feeder: Dallas Xiong MD Gestat Age (exact) 20 wks, 0 days Normal [facility] Comment on above: Performed By: #### A AFPM #### [facility] [address] [place] [address] Paper Feeder: Dallas Xiong MD Ins Req Matern Diab No [facility] Comment on above: Performed By: #### A AFPM #### [facility] [address] [place] [address] Paper Feeder: Dallas Xiong MD Interpretation Screen Neg Normal [facility] Comment on above: Result Comment: (NOT E) INTERPRETATION: SCREEN NEGATIVE for open spina bifida Neural Tube Defects (NTD) Negative Pre-Test Post-Test Cutoff Neural Tube Defects Risks 1:1030 < 1:56310 1:250 Comments: The risk of an open neural tube defect is less than the screening cut-off. This test was developed and its performance characteristics determined by [facility]. It has not been cleared or approved by the US Food and Drug Administration. This test was performed in a CLIA certified laboratory and is intended for clinical purposes. Performed By: #### A AFPM #### [facility] [address] [place] [address] Paper Feeder: Dallas Xiong MD [age] [facility] Comment on above: Performed By: #### A AFPM #### [facility] [address] [place] [address] Paper Feeder: Dlalas Xiong MD Maternal Race Nonblack [facility] Comment on above: Performed By: #### A AFPM #### [facility] [address] [place] [address] Paper Feeder: Dallas Xiong MD Maternal Weight 234.0 lbs. [facility] Comment on above: Performed By: #### A AFPM #### [facility] [address] [place] [address] Paper Feeder: Dallas Xiong MD MoM for AFP 0.82 [facility] Comment on above: Performed By: #### A AFPM #### [facility] [address] [place] [address] Paper Feeder: Dallas Xiong MD Number of Fetuses Sanchez [facility] Comment on above: Performed By: #### A AFPM #### [facility] [address] [place] [address] Paper Feeder: Dallas Xiong MD Patient's AFP 36 ng/mL [facility] Comment on above: Performed By: #### A AFPM #### [facility] [address] [place] [address] Paper Feeder: Dallas Xiong MD Smoking Unknown [facility] Comment on above: Performed By: #### A AFPM #### [facility] [address] [place] [address] Paper Feeder: Dallas Xiong MD Specimen See Note [facility] Comment on above: Result Comment: (NOT E) Initial sample Performed By: [facility] [address] [place] [address] Software Sales Representative: Pranay Rousseau MD, PhD CLIA Number: [id number] Performed By: #### A AFPM #### [facility] [address] [place] [address] Paper Feeder: Dallas Xiong MD IGP,APTIMA HPV,AGE GDLNon AGE GDLN ACOG TESTING Note . [facility] Comment on above: TESTS RESULT [facility] REF RANGE LAB Clinician Provided Cytology Information Other.............. No. of containers..01 ThinPrep Vial Age Algo ACOG Geetha... FLAG LEGEND: L-Low Normal,H-High Normal,LL-Alert Low,HH-Alert High <-Panic Low,>-Panic High,A-Abnormal,AA-Critical Abnormal Performed at: 01 =G [address] [address] Lynda Almaguer MD, IGP, RFX APTIMA HPV ASCU Note . [facility] Comment on above: TESTS RESULT [facility] REF RANGE LAB DIAGNOSIS: 02 NEGATIVE FOR INTRAEPITHELIAL LESION OR MALIGNANCY. FUNGAL ORGANISMS MORPHOLOGICALLY CONSISTENT WITH MARTHA SPECIES ARE PRESENT. CELLULAR CHANGES ASSOCIATED WITH INFLAMMATION ARE PRESENT. Specimen adequacy: 02 Satisfactory for evaluation. Endocervical and/or squamous metaplastic cells (endocervical component) are present. Performed by: 02 Argelia Correia Unix Architect . 02 Note: Note 02 The Pap [...] <-Panic Low,>-Panic High,A-Abnormal,AA-Critical Abnormal Performed at: [address] [address] Lynda Almaguer MD, Performed at: = - [facility] [id number] Paper Feeder: Lynda Almaguer MD, Phone: [phone] Performed at: [facility] [address] [id number] Paper Feeder: Lynda Almaguer MD, Phone: [phone] BRUSH-SPATULA BRUSH-ALONE 2 [facility] US OB 14+ WEEKS ANATOMY SCAN on [...] II, MD, PHD at 25-Oct-2024 11:18:35 PM [facility] Normal Not Available Comment on above: Order Comment: US OB ANATOMY SINGLE W US OB CERVICAL LENGTH Estimated Date of Delivery: 03/06/25 Gestational Age as of 09/26/2024: 17w0d Urinalysis macro (dipstick) panel (U)on 09-26-2024 Bilirubin, UA Negative Negative - 4(70) +++ mg/dL [facility] Blood, UA Negative Negative - 50 Chuy/mcL [facility] Clarity, UA Clear [facility] [facility] Color, UA Yellow [facility] Glucose, UA Negative Negative - 1999(110) ++++ mg/dL [facility] Interpretation and review of laboratory results Normal [facility] Ketones, UA Positive Negative - 160(16) ++++ mg/dL [facility] Leukocytes, UA Negative Negative - 500+++ Sadi/mcL [facility] Nitrite, UA Negative Negative - Positive [facility] pH, UA 7 5 - 9 [facility] Protein, UA Negative Negative - 1999(20) ++++ mg/dL [facility] Spec Grav, UA 1.02 1 - 1.03 [facility] Urobilinogen, UA 0.2 0.2 - 12 mg/dL [facility] Urinalysis macro (dipstick) panel (U)on 08-29-2024 Bilirubin, UA Negative Negative - 4(70) +++ mg/dL [facility] Blood, UA Positive Negative - 50 Chuy/mcL [facility] Comment on above: trace-intact Clarity, UA Clear [facility] Color, UA Yellow [facility] Glucose, UA Negative Negative - 1999(110) ++++ mg/dL [facility] Interpretation and review of laboratory results Abnormal [facility] Ketones, UA Negative Negative - 160(16) ++++ mg/dL [facility] Leukocytes, UA Negative Negative - 500+++ Sadi/mcL [facility] Nitrite, UA Negative Negative - Positive [facility] pH, UA 7 5 - 9 [facility] Protein, UA Negative Negative - 1999(20) ++++ mg/dL [facility] Spec Grav, UA 1.025 1 - 1.03 [facility] Urobilinogen, UA 0.2 0.2 - 12 mg/dL [facility] US OB TRANSVAGINALon 025 US OB TRANSVAGINAL [...] II, MD, PHD at 05-Aug-2024 09:13:53 AM [facility] Normal Not Available Comment on above: Order Comment: US OB TRANSVAGINAL No LMP recorded. [facility] PREG QUANT HCGon 025 HCG QUANTITATIVE 76695 mIU/mL [facility] Comment on above: 5-50 0.2-1 WEEK 50-500 1-2 WEEKS 100-5,000 2-3 WEEKS 500-10,000 3-4 WEEKS 1,000-50,000 4-5 WEEKS 10,000-100,000 5-6 WEEKS 15,000-200,000 6-8 WEEKS 10,000-100,000 2-3 MONTHS [facility] PREG QUANT HCGon 025 HCG QUANTITATIVE 27985 mIU/mL [facility] Comment on above: 5-50 0.2-1 WEEK 50-500 1-2 WEEKS 100-5,000 2-3 WEEKS 500-10,000 3-4 WEEKS 1,000-50,000 4-5 WEEKS 10,000-100,000 5-6 WEEKS 15,000-200,000 6-8 WEEKS 10,000-100,000 2[facility] (dipstick) panel (U)on 07-15-2023 Bilirubin, UA Negative Negative - 4(70) +++ mg/dL [facility] Blood, UA Negative Negative - 50 Chuy/mcL [facility] Clarity, UA Clear [facility] Color, UA Yellow [facility] Glucose, UA Negative Negative - 1999(110) ++++ mg/dL [facility] Interpretation and review of laboratory results Normal [facility] Ketones, UA Positive Negative - 160(16) ++++ mg/dL [facility] Leukocytes, UA Negative Negative - 500+++ Sadi/mcL [facility] Nitrite, UA Negative Negative - Positive [facility] pH, UA 6.5 5 - 9 [facility] Protein, UA Negative Negative - 1999(20) ++++ mg/dL [facility] Spec Grav, UA 1.025 1 - 1.03 [facility] Urobilinogen, UA 0.2 0.2 - 12 mg/dL [facility] C-Reactive Proteinon 022 CRP [Mass/Vol] mg/L 0 - 5 mg/L [facility] CBC with Auto Differentialon 12-16-2021 Absolute Eos # 0.09 [facility] Absolute Immature Granulocyte 0.04 [facility] Absolute Lymph # 2.98 [facility] Absolute [place] # 0.51 [facility] Basophils (Bld) [#/Vol] 0.04 10*3/uL [facility] Basophils/100 WBC (Bld) 0 % 0 - 2 % [facility] Eosinophils/100 WBC (Bld) 1 % 1 - 4 % [facility] Hematocrit (Bld) [Volume fraction] 39.6 % 36.3 - 47.1 % [facility] Hemoglobin (Bld) [Mass/Vol] 13.1 g/dL 11.9 - 15.1 g/dL [facility] Immature granulocytes/100 WBC (Bld) 0 % 0 [facility] Lymphocytes/100 WBC (Bld) 33 % 24 - 43 % [facility] MCH (RBC) [Entitic mass] 28.2 pg 25.2 - 33.5 pg [facility] MCHC (RBC) [Mass/Vol] 33.1 g/dL 28.4 - 34.8 g/dL [facility] MCV (RBC) [Entitic vol] 85.3 fL 82.6 - 102.9 fL [facility] Monocytes/100 WBC (Bld) 6 % 3 - 12 % [facility] NRBC Automated 0.0 0.0 per 100 WBC [facility] Platelet distribution width (Bld) [Ratio] 12.0 % 11.8 - 14.4 % [facility] Platelet mean volume (Bld) [Entitic vol] 11.1 fL 8.1 - 13.5 fL [facility] Platelets (Bld) [#/Vol] 214 10*3/uL [facility] RBC (Bld) [#/Vol] 4.64 10*6/uL 3.95 - 5.1 1 m/uL [facility] Segmented neutrophils/100 WBC (Bld) 60 % 36 - 65 % [facility] Segs Absolute 5.49 [facility] WBC (Bld) [#/Vol] 9.2 10*3/uL [facility] Rheumatoid Factoron 12-17-19 22 Rheumatoid Factor <10 NINF [facility] Sedimentation Rateon 022 Sed Rate 5 [facility] Uric Acidon 12-16-2021 Urate [Mass/Vol] 4.2 mg/dL 2.4 - 5.7 mg/dL [facility] Basic Metabolic Panel w/ Ref yossi to MGOrdered By: Donny Hatfield on 10-15-2020 Anion gap [Moles/Vol] 13 mmol/L 9 - 17 mmol/L [facility] [employer] Work Phone: Calcium [Mass/Vol] 9.6 mg/dL 8.6 - 10. 4 mg/dL [facility] [employer] Phone: Chloride [Moles/Vol] 105 mmol/L 98 - 10 7 mmol/L [facility]: CO2 [Moles/Vol] 22 mmol/L 20 - 31 mmol/L [facility] Phone: Creatinine [Mass/Vol] 0.62 mg/dL 0.50 - 0.90 mg/dL [employer] Work Phone: GFR >60 >60 mL/min [place] Work Phone: GFR Non- >60 >60 mL/min [employer] Phone: Glucose [Mass/Vol] 110 mg/dL High 70 - 99 mg/dL [employer] Phone: Interpretation and review of laboratory results Abnormal [employer] Work Phone: Potassium [Moles/Vol] 3.5 mmol/L Low 3.7 - 5.3 mmol/L [employer] Phone: Sodium [Moles/Vol] 140 mmol/L 135 - 144 mmol/L [employer] Phone: Urea nitrogen (BldV) [Mass/Vol] 12 mg/dL 6 - 20 mg/dL [employer] Work Phone: Urea nitrogen/Creatinine (Bld) [Mass ratio] 19 [employer] Work Phone: [employer] Phone: CBC Auto DifferentialOrdered By: Donny Hatfield on 10-15-2020 Absolute Eos # 0.19 [employer] [facility] Work Phone: Absolute Immature Granulocyte 0.06 [employer] Work Phone: Absolute Lymph # 2.50 [employer] [facility] Work Phone: Absolute [place] # 0.75 [employer] [facility] Work Phone: Basophils (Bld) [#/Vol] 0.04 10*3/uL [employer] Work Phone: Basophils/100 WBC (Bld) 0 % 0 - 2 % [employer] Phone: Differential Type NOT REPORTED [employer] Phone: Eosinophils/100 WBC (Bld) 1 % 1 - 4 % [employer] Work Phone: Hematocrit (Bld) [Volume fraction] 42.1 % 36.3 - 47.1 % [employer] Phone: Hemoglobin.gastrointes tinal spec 1 Ql (Stl) 14.0 g/dL 11.9 - 15.1 g/dL [employer] Phone: Immature granulocytes/100 WBC (Bld) 0 % 0 [employer] Phone: Interpretation and review of laboratory results Abnormal [employer] Phone: Lymphocytes/100 WBC (Bld) 14 % Low 24 - 43 % [employer] Phone: MCH (RBC) [Entitic mass] 28.1 pg 25.2 - 33.5 pg [employer] Phone: MCHC (RBC) [Mass/Vol] 33.3 g/dL 28.4 - 34.8 g/dL [employer] Phone: MCV (RBC) [Entitic vol] 84.4 fL 82.6 - 102.9 fL [employer] Phone: Monocytes/100 WBC (Bld) 4 % 3 - 12 % [employer] Phone: NRBC Automated 0.0 0.0 per 100 WBC [employer] Phone: Platelet distribution width (Bld) [Ratio] 11.9 % 11.8 - 14.4 % [employer] Phone: Platelet Estimate NOT REPORTED [employer] Phone: Platelet mean volume (Bld) [Entitic vol] 10.7 fL 8.1 - 13.5 fL [employer] Phone: Platelets (Bld) [#/Vol] 220 10*3/uL [employer] Phone: RBC (Bld) [#/Vol] 4.99 10*6/uL 3.95 - 5.1 1 m/uL [employer] Work Phone: RBC (Bld) [#/Vol] NOT REPORTED [employer] Phone: Segmented neutrophils/100 WBC (Bld) 81 % High 36 - 65 % [employer] Phone: Segs Absolute 14.20 High [employer] Work Phone: WBC (Bld) [#/Vol] 17.7 10*3/uL High [employer] Work Phone: WBC (Bld) [#/Vol] NOT REPORTED [employer] Phone: [employer] Phone: CT ABDOMEN PELVIS W IV CONTR AST Additional Contrast? NoneOrdered By: Donny Hatfield on 10-15-2020 1. Marked hepatic steatosis. 2. Hepatomegaly. 3. Mild colonic diverticulosis without evidence of diverticulitis. [employer] Phone: EXAMINATION: CT OF T HE ABDOMEN [...] COMPARISON: None. HISTORY: ORDERING SYSTEM PROVIDED HISTORY: [facility] pain TECHNOLOGIST PROVIDED HISTORY: [facility] pain Decision Support Exception - unselect [...] subcutaneous soft tissues are unremarkable in appearance. [employer] Work Phone: Jean Marie, pn Incoming Radiant Results From [email or web address] - 10/15/2020 1:48 AM EDT EXAMINATION: CT [...] COMPARISON: None. HISTORY: ORDERING SYSTEM PROVIDED HISTORY: [facility] pain TECHNOLOGIST PROVIDED HISTORY: [facility] pain Decision Support Exception - unselect [...] Mild colonic diverticulosis without evidence of diverticulitis. [employer] Phone: [employer] Phone: HCG Qualitative, SerumOrdere d By: Donny Hatfield on 10-15-2020 hCG Qual Negative NEGATIVE [employer] Phone: Comment on above: Specimens with hCG l evels near the threshold of the test (25 mIU/mL) may give a negative or indeterminate result. In such cases, another test should be performed with a new specimen in 48-72 hours. If early is suspected clinically in this setting, correlation with quantitative serum b-hCG level is suggested. [facility] has confirmed the use of plasma for this test. This has not been cleared or approved by the U.S. Food and Drug Administration. The FDA has determined that such clearance is not necessary. [employer] Phone: Hepatic Function PanelOrdere d By: Donny Hatfield on 10-15-2020 Albumin [Mass/Vol] 4.6 g/dL 3.5 - 5.2 g/dL [employer] Phone: Albumin/Globulin [Mass ratio] 1.6 {ratio} [employer] Phone: ALP (Bld) [Catalytic activity/Vol] 59 U/L 35 - 104 U/L [employer] Phone: ALT [Catalytic activity/Vol] 38 U/L High 5 - 33 U/L [employer] Phone: AST [Catalytic activity/Vol] 24 U/L <32 [employer] Phone: Bilirubin [Mass/Vol] 0.48 mg/dL 0.3 - 1 .2 mg/dL [employer] Phone: Bilirubin, Indirect CANNOT BE CALCULATED 0.00 - 1.00 mg/dL [employer] Phone: Bilirubin.indirect [Mass/Vol] mg/dL <0.31 mg/dL [employer] Phone: Free PSA/Total PSA [Mass fraction] 7.4 g/dL 6.4 - 8.3 g/dL [employer] Phone: Globulin NOT REPORTED 1.5 - 3.8 g/dL [employer] Phone: Interpretation and review of laboratory results Abnormal [employer] Phone: Laboratory - Chemistry and C hemistry - challengeOrdered By: Donny Hatfield on 10-15-2020 GFR/1.73 sq M.predicted MDRD (S/P/Bld) [Vol rate/Area] [employer] Phone: Comment on above: Average GFR for 20-2 9 years old: 116 mL/min/1.73sq m Chronic Kidney Disease: <60 mL/min/1.73sq m Kidney failure: <15 mL/min/1.73sq m eGFR calculated using average adult body mass. Additional eGFR calculator available at: http://www.HelloTel/multiple_crcl_2012.htm Stage 1: Some kidney damage normal GFR Stage 2: Mild kidney damage GFR 60-89 Stage 3: Moderate kidney damage GFR 30-59 Stage 4: Severe kidney damage GFR 15-29 Stage 5: Severe kidney damage GFR <15 ESRD - chronic treatment by dialysis or transplant Lactic Acid, PlasmaOrdered B y: Donny Hatfield on 10-15-2020 Lactate [Moles/Vol] 1.1 mmol/L 0.5 - 2. 2 mmol/L [employer] Phone: Lactic Acid, Whole Blood NOT REPORTED 0.7 - 2.1 mmol/L [employer] Phone: [employer] Phone: LipaseOrdered By: Cuco on 10-15-2020 Lipase [Catalytic activity/Vol] 27 U/L 13 - 60 U/L [employer] Phone: MagnesiumOrdered By: Donny Hatfield on 10-15-2020 Magnesium [Mass/Vol] 1.8 mg/dL 1.6 - 2 .6 mg/dL [facility] [employer] Work Phone: [facility] Work Phone: Microscopic UrinalysisOrdere d By: Donny Hatfield on 10-15-2020 - [facility] [employer] Work Phone: Amorphous, UA NOT REPORTED None [employer] [facility] Work Phone: Bacteria, UA 1+ Abnormal None [facility] Work Phone: Casts UA NOT REPORTED /LPF [facility] Work Phone: Crystals, UA NOT REPORTED None /HPF [facility] Work Phone: Epithelial Cells UA [address] [facility] Work Phone: Interpretation and review of laboratory results Abnormal [facility] [employer] Work Phone: Mucus, UA 1+ Abnormal None [facility] [employer] Work Phone: Other Observations UA NOT REPORTED NOT REQ. M [facility] Work Phone: RBC, UA [address] [facility] Work Phone: Renal Epithelial, UA NOT REPORTED 0 /HPF [facility] Work Phone: Trichomonas, UA NOT REPORTED None [facility] Work Phone: WBC, UA 0 TO 2 [facility] [employer] Work Phone: Yeast, UA NOT REPORTED None [facility] [employer] Work Phone: [facility] Work Phone: No Panel InformationOrdered By: Donny Hatfield on 10-15-2020 [facility] [employer] Work Phone: Urinalysis Reflex to Culture Ordered By: Donny Hatfield on 10-15-2020 Bilirubin Urine Negative NEGATIVE [facility] Work Phone: Color, UA YELLOW YELLOW [facility] [employer] Work Phone: Glucose, Ur Negative NEGATIVE [facility] [employer] Work Phone: Interpretation and review of laboratory results Abnormal [facility] [employer] Work Phone: Ketones Ql (U) Negative NEGATIVE [facility] Work Phone: Leukocyte esterase Test strip Ql (U) Negative NEGATIVE [facility] [employer] Work Phone: Nitrite, Urine Negative NEGATIVE [facility] Work Phone: pH, UA 5.0 [facility] [employer] Work Phone: Protein, UA Negative NEGATIVE [facility] Work Phone: Specific Cascilla, UA 1.010 [facility] [employer] Work Phone: Turbidity UA CLEAR CLEAR [facility] [employer] Work Phone: Urinalysis Comments NOT REPORTED [facility] [employer] Work Phone: Urine Hgb 2+ Abnormal NEGATIVE [facility] [employer] Work Phone: Urobilinogen, Urine Normal Normal [facility] [employer] Work Phone: [facility] Work Phone: Comp Metabolic Profon 2020 (cont.) Normal [facility] Comment on above: Result Comment: Aver age GFR for 20-29 years old: 116 mL/min/1.73sq m Chronic Kidney Disease: <60 mL/min/1.73sq m Kidney failure: <15 mL/min/1.73sq m eGFR calculated using average adult body mass. Additional eGFR calculator available at: http://www.Pitzi.Superbly/multiple_crcl_2011.htm Performed By: #### L IPRF, CDP, CP, TSHX #### [facility] [address] [place] [address] [phone] [employer]: Chato Aguirre MD Albumin [Mass/Vol] 4.3 g/dL Normal 3.5-5.2 [facility] Comment on above: Performed By: #### L IPRF, CDP, CP, TSHX #### [address] [address] [employer]: Chato Aguirre MD Albumin/Glob Ratio 1.3 Normal 1.0-2.5 [facility] Comment on above: Performed By: #### L IPRF, CDP, CP, TSHX #### [facility] [employer] [address] [place] [phone] [employer]: Chato Aguirre MD Alkaline Phos 49 U/L Normal 35-104 [facility] Comment on above: Performed By: #### L IPRF, CDP, CP, TSHX #### [address] [address] [employer]: Chato Aguirre MD ALT [Catalytic activity/Vol] 36 U/L High 5-33 [facility] Comment on above: Performed By: #### L IPRF, CDP, CP, TSHX #### [address] [address] [employer]: Chato Aguirre MD Anion gap [Moles/Vol] 11 mmol/L Normal 9-17 [facility] Comment on above: Performed By: #### L IPRF, CDP, CP, TSHX #### [address] [address] [employer]: Chato Aguirre MD AST [Catalytic activity/Vol] 27 U/L Normal <32 [facility] Comment on above: Performed By: #### L IPRF, CDP, CP, TSHX #### [facility] [employer] [address] [place] [phone] [employer]: Chato Aguirre MD Bilirubin [Mass/Vol] 0.34 mg/dL Normal 0.3-1.2 [facility] Comment on above: Performed By: #### L IPRF, CDP, CP, TSHX #### [facility] [employer] [address] [place] [phone] [employer]: Chato Aguirre MD Calcium [Mass/Vol] 9.5 mg/dL Normal 8.6-10.4 [facility] Comment on above: Performed By: #### L IPRF, CDP, CP, TSHX #### [facility] [employer] [address] [place] [phone] [employer]: Chato Aguirre MD Chloride [Moles/Vol] 102 mmol/L Normal 98-107 [facility] Comment on above: Performed By: #### L IPRF, CDP, CP, TSHX #### [facility] [employer] [address] [place] [phone] [employer]: Chato Aguirre MD CO2 [Moles/Vol] 22 mmol/L Normal 20-31 [facility] Comment on above: Performed By: #### L IPRF, CDP, CP, TSHX #### [facility] [employer] [address] [place] [phone] [employer]: Chato Aguirre MD Creatinine [Mass/Vol] 0.46 mg/dL Low 0.50-0.90 [facility] Comment on above: Performed By: #### L IPRF, CDP, CP, TSHX #### [facility] [employer] [address] [place] [phone] [employer]: Chato Aguirre MD GFR, Amer >60 Normal >60 [facility] Comment on above: Performed By: #### L IPRF, CDP, CP, TSHX #### [facility] [employer] [address] [place] [id number] [employer]: Chato Aguirre MD GFR,non Amer >60 Normal >60 [facility] Comment on above: Performed By: #### L IPRF, CDP, CP, TSHX #### [facility] [employer] [address] [place] [address] [employer]: Chato Aguirre MD Glucose [Mass/Vol] 92 mg/dL Normal 70-99 [facility] Comment on above: Performed By: #### L IPRF, CDP, CP, TSHX #### [facility] [employer] [address] [place] [address] [employer]: Chato Aguirre MD Potassium [Moles/Vol] 4.2 mmol/L Normal 3.7-5.3 [facility] Comment on above: Performed By: #### L IPRF, CDP, CP, TSHX #### [facility] [employer] [address] [place] [phone] [employer]: Chato Aguirre MD Protein [Mass/Vol] 7.5 g/dL Normal 6.4-8.3 [facility] Comment on above: Performed By: #### L IPRF, CDP, CP, TSHX #### [facility] [employer] [address] [place] [phone] [employer]: Chato Aguirre MD Sodium [Moles/Vol] 135 mmol/L Normal 135-144 [facility] Comment on above: Performed By: #### L IPRF, CDP, CP, TSHX #### [facility] [employer] [address] [place] [phone] [employer]: Chato Aguirre MD Urea nitrogen [Mass/Vol] 11 mg/dL Normal 6-20 [facility] Comment on above: Performed By: #### L IPRF, CDP, CP, TSHX #### [facility] [employer] [address] [place] [phone] [employer]: Chato Aguirre MD Lipid Prof, Fastingon 2020 Cholesterol [Mass/Vol] 186 mg/dL Normal <200 [facility] Comment on above: Result Comment: Cholesterol Guidelines: <200 Desirable 200-240 Borderline >240 Undesirable Performed By: #### L IPRF, CDP, CP, TSHX #### [facility] [place] [address] [employer]: Chato Aguirre MD Cholesterol in HDL [Mass/Vol] 49 mg/dL Normal >40 [facility] Comment on above: Result Comment: HDL Guidelines: <40 Undesirable 40-59 Borderline >59 Desirable Performed By: #### L IPRF, CDP, CP, TSHX #### [facility] [address] [place] [phone] [employer]: Chato Aguirre MD Cholesterol in LDL [Mass/Vol] 102 mg/dL Normal 0-130 [facility] Comment on above: Result Comment: LDL Guidelines: <100 Desirable 100-129 Near to/above Desirable 130-159 Borderline >159 Undesirable Direct (measured) LDL and calculated LDL are not interchangeable tests. Performed By: #### L IPRF, CDP, CP, TSHX #### [facility] [address] [place] [phone] [employer]: Chato Aguirre MD Cholesterol.total/Chol esterol in HDL [Mass ratio] 3.8 {ratio} Normal <5 [facility] Comment on above: Performed By: #### L IPRF, CDP, CP, TSHX #### [facility] [address] [place] [address] [phone] [employer]: Chato Aguirre MD Triglyceride,Fasting 173 mg/dL High <150 [facility] Comment on above: Result Comment: Triglyceride Guidelines: <150 Desirable 150-199 Borderline 200-499 High >499 Very high Based on AHA Guidelines for fasting triglyceride, February 2012. Performed By: #### L IPRF, CDP, CP, TSHX #### [facility] [address] [place] [phone] [employer]: Chato Aguirre MD TSH w/reflex to FT4on 2020 TSH Qn 3.38 m[IU]/L Normal 0.30-5.00 [facility] Comment on above: Performed By: #### L IPRF, CDP, CP, TSHX #### [facility] [address] [place] [address] [employer]: Chato Aguirre MD CBC Auto DifferentialOrdered By: Miguel Holley on 09-23-2020 Absolute Eos # 0.14 [employer] [facility] Work Phone: Absolute Immature Granulocyte <0.03 [employer] Work Phone: Absolute Lymph # 2.71 [employer] Work Phone: Absolute [place] # 0.48 [employer] Work Phone: Basophils (Bld) [#/Vol] 0.05 10*3/uL [employer] Work Phone: Basophils/100 WBC (Bld) 1 % 0 - 2 % [employer] Phone: Differential Type NOT REPORTED [employer] Phone: Eosinophils/100 WBC (Bld) 2 % 1 - 4 % [employer] Phone: Hematocrit (Bld) [Volume fraction] 42.9 % 36.3 - 47.1 % [employer] Phone: Hemoglobin.gastrointes tinal spec 1 Ql (Stl) 13.5 g/dL 11.9 - 15.1 g/dL [employer] Phone: Immature granulocytes/100 WBC (Bld) 0 % 0 [employer] Phone: Lymphocytes/100 WBC (Bld) 30 % 24 - 43 % [employer] Phone: MCH (RBC) [Entitic mass] 27.6 pg 25.2 - 33.5 pg [employer] Phone: MCHC (RBC) [Mass/Vol] 31.5 g/dL 28.4 - 34.8 g/dL [employer] Phone: MCV (RBC) [Entitic vol] 87.6 fL 82.6 - 102.9 fL [employer] Phone: Monocytes/100 WBC (Bld) 5 % 3 - 12 % [employer] Phone: NRBC Automated 0.0 0.0 per 100 WBC [employer] Phone: Platelet distribution width (Bld) [Ratio] 12.4 % 11.8 - 14.4 % [employer] Phone: Platelet Estimate NOT REPORTED [employer] Phone: Platelet mean volume (Bld) [Entitic vol] 11.6 fL 8.1 - 13.5 fL [employer] Phone: Platelets (Bld) [#/Vol] 246 10*3/uL [employer] Phone: RBC (Bld) [#/Vol] 4.90 10*6/uL 3.95 - 5.1 1 m/uL [employer] Phone: RBC (Bld) [#/Vol] NOT REPORTED [employer] Phone: Segmented neutrophils/100 WBC (Bld) 62 % 36 - 65 % [employer] Phone: Segs Absolute 5.79 [employer] Work Phone: WBC (Bld) [#/Vol] 9.2 10*3/uL [employer] Phone: WBC (Bld) [#/Vol] NOT REPORTED [employer] Phone: CBC with Diffon 09-23-2020 Abs. Basophil 0.05 k/uL Normal 0.00-0.20 [facility] Comment on above: Performed By: #### L IPRF, CDP, CP, TSHX #### [facility] [address] [place] [phone] [employer]: Chato Aguirre MD Abs.Imm.Granulocyte <0.03 Normal 0.00-0.30 [facility] Comment on above: Performed By: #### L IPRF, CDP, CP, TSHX #### [facility] [employer] [address] [place] [id number] Paper Feeder: Chato Aguirre MD Abs.Neutrophil (Seg) 5.79 k/uL Normal 1.50-8.10 [facility] Comment on above: Performed By: #### L IPRF, CDP, CP, TSHX #### [facility] [employer] [address] [place] [address] Paper Feeder: Chato Aguirre MD Basophils/100 WBC (Bld) 1 % Normal 0-2 [facility] Comment on above: Performed By: #### L IPRF, CDP, CP, TSHX #### [place] [address] Paper Feeder: Chato Aguirre MD Eosinophils (Bld) [#/Vol] 0.14 10*3/uL Normal 0.00-0.44 [facility] Comment on above: Performed By: #### L IPRF, CDP, CP, TSHX #### [facility] [employer] [address] [place] [address] Paper Feeder: Chato Aguirre MD Eosinophils/100 WBC (Bld) 2 % Normal 1-4 [facility] Comment on above: Performed By: #### L IPRF, CDP, CP, TSHX #### [facility] [employer] [address] [place] [id number] Paper Feeder: Chato Aguirre MD Erythrocyte distribution width (RBC) [Ratio] 12.4 % Normal 11.8-14.4 [facility] Comment on above: Performed By: #### L IPRF, CDP, CP, TSHX #### [facility] [employer] [address] [place] [address] Paper Feeder: Chato Aguirre MD Hematocrit (Bld) [Volume fraction] 42.9 % Normal 36.3-47.1 [facility] Comment on above: Performed By: #### L IPRF, CDP, CP, TSHX #### [place] [address] Paper Feeder: Chato Aguirre MD Hemoglobin (Bld) [Mass/Vol] 13.5 g/dL Normal 11.9-15.1 [facility] Comment on above: Performed By: #### L IPRF, CDP, CP, TSHX #### [place] [address] Paper Feeder: Chato Aguirre MD Immature granulocytes/100 WBC (Bld) 0 % Normal 0 [facility] Comment on above: Performed By: #### L IPRF, CDP, CP, TSHX #### [place] [address] Paper Feeder: Chato Aguirre MD Lymphocytes (Bld) [#/Vol] 2.71 10*3/uL Normal 1.10-3.70 [facility] Comment on above: Performed By: #### L IPRF, CDP, CP, TSHX #### [place] [address] Paper Feeder: Chato Aguirre MD Lymphocytes/100 WBC (Bld) 30 % Normal 24-43 [facility] Comment on above: Performed By: #### L IPRF, CDP, CP, TSHX #### [place] [address] Paper Feeder: Chato Aguirre MD MCH (RBC) [Entitic mass] 27.6 pg Normal 25.2-33.5 [facility] Comment on above: Performed By: #### L IPRF, CDP, CP, TSHX #### [address] [address] Paper Feeder: Chato Aguirre MD MCHC (RBC) [Mass/Vol] 31.5 g/dL Normal 28.4-34.8 [facility] Comment on above: Performed By: #### L IPRF, CDP, CP, TSHX #### [address] [address] Paper Feeder: Chato Aguirre MD MCV (RBC) [Entitic vol] 87.6 fL Normal 82.6-102.9 [facility] Comment on above: Performed By: #### L IPRF, CDP, CP, TSHX #### [address] [address] Paper Feeder: Chato Aguirre MD Monocytes (Bld) [#/Vol] 0.48 10*3/uL Normal 0.10-1.20 [facility] Comment on above: Performed By: #### L IPRF, CDP, CP, TSHX #### [place] [address] Paper Feeder: Chato Aguirre MD Monocytes/100 WBC (Bld) 5 % Normal 3-12 [facility] Comment on above: Performed By: #### L IPRF, CDP, CP, TSHX #### [address] [address] Paper Feeder: Chato Aguirre MD Neutrophil (Seg) 62 % Normal 36-65 [facility] Comment on above: Performed By: #### L IPRF, CDP, CP, TSHX #### [place] [address] Paper Feeder: Chato Aguirre MD NRBC Automated 0.0 per 100 WBC Normal 0.0 [facility] Comment on above: Performed By: #### L IPRF, CDP, CP, TSHX #### [address] [place] [address] Paper Feeder: Chato Aguirre MD Platelet mean volume (Bld) [Entitic vol] 11.6 fL Normal 8.1-13.5 [facility] Comment on above: Performed By: #### L IPRF, CDP, CP, TSHX #### [address] [address] Paper Feeder: Chato Aguirre MD Platelets (Bld) [#/Vol] 246 10*3/uL Normal 138-453 [facility] Comment on above: Performed By: #### L IPRF, CDP, CP, TSHX #### [address] [address] Paper Feeder: Chato Aguirre MD RBC (Bld) [#/Vol] 4.90 10*6/uL Normal 3.95-5.11 [facility] Comment on above: Performed By: #### L IPRF, CDP, CP, TSHX #### [address] [address] Paper Feeder: Chato Aguirre MD WBC (Bld) [#/Vol] 9.2 10*3/uL Normal 3.5-11.3 [facility] Comment on above: Performed By: #### L IPRF, CDP, CP, TSHX #### [address] [address] Paper Feeder: Chato Aguirre MD Auto Diff Performed NOT REPORTED Normal [facility] Comment on above: Performed By: #### L IPRF, CDP, CP, TSHX #### [address] [address] Paper Feeder: Chato Aguirre MD Platelet Estimate NOT REPORTED Normal [facility] Comment on above: Performed By: #### L IPRF, CDP, CP, TSHX #### [address] [id number] Paper Feeder: Chato Aguirre MD RBC morphology finding Nom (Bld) NOT REPORTED Normal [facility] Comment on above: Performed By: #### L IPRF, CDP, CP, TSHX #### [facility] [address] [place] [address] Paper Feeder: Chato Aguirre MD WBC Morphology NOT REPORTED Normal [facility] Comment on above: Performed By: #### L IPRF, CDP, CP, TSHX #### [facility] [address] [place] [address] Paper Feeder: Chato Aguirre MD Comp Metabolic Profon 2020 BUN/CRE Ratio NOT REPORTED Normal 02-17 [facility] Comment on above: Performed By: #### L IPRF, CDP, CP, TSHX #### [facility] [address] [place] [address] Paper Feeder: Chato Aguirre MD Staging: NOT REPORTED Normal [facility] Comment on above: Performed By: #### L IPRF, CDP, CP, TSHX #### [facility] [address] [place] [address] Paper Feeder: Chato Aguirre MD Comprehensive Metabolic Pane lOrdered By: Miguel Holley on 09-23-2020 Albumin [Mass/Vol] 4.3 g/dL 3.5 - 5.2 g/dL [employer] Phone: Albumin/Globulin [Mass ratio] 1.3 {ratio} [employer] Phone: ALP (Bld) [Catalytic activity/Vol] 49 U/L 35 - 104 U/L [employer] Phone: ALT [Catalytic activity/Vol] 36 U/L High 5 - 33 U/L [employer] Phone: Anion gap [Moles/Vol] 11 mmol/L 9 - 17 mmol/L [employer] Phone: AST [Catalytic activity/Vol] 27 U/L <32 [employer] Phone: Bilirubin [Mass/Vol] 0.34 mg/dL 0.3 - 1 .2 mg/dL [employer] Phone: Calcium [Mass/Vol] 9.5 mg/dL 8.6 - 10. 4 mg/dL [employer] Phone: Chloride [Moles/Vol] 102 mmol/L 98 - 10 7 mmol/L [employer] Phone: CO2 [Moles/Vol] 22 mmol/L 20 - 31 mmol/L [employer] Phone: Creatinine [Mass/Vol] 0.46 mg/dL Low 0.50 - 0.90 mg/dL [employer] Phone: Free PSA/Total PSA [Mass fraction] 7.5 g/dL 6.4 - 8.3 g/dL [employer] Phone: GFR >60 >60 mL/min [employer] Phone: GFR Non- >60 >60 mL/min [employer] Phone: GFR/1.73 sq M.predicted MDRD (S/P/Bld) [Vol rate/Area] [employer] Phone: Comment on above: Average GFR for 20-2 9 years old: 116 mL/min/1.73sq m Chronic Kidney Disease: <60 mL/min/1.73sq m Kidney failure: <15 mL/min/1.73sq m eGFR calculated using average adult body mass. Additional eGFR calculator available at: http://www.Pitzi.Superbly/multiple_crcl_2012.htm GFR/1.73 sq M.predicted MDRD (S/P/Bld) [Vol rate/Area] NOT REPORTED [employer] Phone: Glucose [Mass/Vol] 92 mg/dL 70 - 99 mg/dL [facility] Work Phone: Potassium [Moles/Vol] 4.2 mmol/L 3.7 - 5.3 mmol/L [facility] Work Phone: Sodium [Moles/Vol] 135 mmol/L 135 - 144 mmol/L [facility] Phone: Urea nitrogen (BldV) [Mass/Vol] 11 mg/dL 6 - 20 mg/dL [facility] Work Phone: Urea nitrogen/Creatinine (Bld) [Mass ratio] NOT REPORTED [facility] Phone: Laboratory - Chemistry and C hemistry - challengeOrdered By: Miguel Holley on 09-23-2020 Albumin [Mass/Vol] 4.3 g/dL (3.5-5.2 ) [facility] Work Phone: Comment on above: Note: Responsible Ob service observer: CEEV AUTOFILE ([id number]) ALT [Catalytic activity/Vol] 36 U/L High (5-33 ) [facility] Work Phone: Comment on above: Note: Responsible Ob service observer: CEEV AUTOFILE ([id number]) Anion gap [Moles/Vol] 11 mmol/L (9-17 ) [facility] Work Phone: Comment on above: Note: Responsible Ob service observer: CEEV AUTOFILE ([id number]) AST [Catalytic activity/Vol] 27 U/L (<32 ) [facility] Work Phone: Comment on above: Note: Responsible Ob service observer: CEEV AUTOFILE ([id number]) Bilirubin [Mass/Vol] 0.34 mg/dL (0.3-1.2 ) [facility] Work Phone: Comment on above: Note: Responsible Ob service observer: CEEV AUTOFILE ([id number]) Calcium [Mass/Vol] 9.5 mg/dL (8.6-10.4 ) [facility] Work Phone: Comment on above: Note: Responsible Ob service observer: CEEV AUTOFILE ([id number]) Chloride [Moles/Vol] 102 mmol/L (98-107 ) [facility] Work Phone: Comment on above: Note: Responsible Ob service observer: CEEV AUTOFILE ([id number]) Cholesterol [Mass/Vol] 186 mg/dL (<200 ) [facility] Work Phone: Comment on above: Note: Cholesterol Gu idelines:<200 [id number] Borderline>240 UndesirableResponsible Observer: CEEV AUTOFILE ([id number]) Cholesterol.total/Chol esterol in HDL [Mass ratio] 3.8 {ratio} (<5 ) [facility] Work Phone: Comment on above: Note: Responsible Ob service observer: CEEV AUTOFILE ([id number]) CO2 [Moles/Vol] 22 mmol/L (20-31 ) [facility] Work Phone: Comment on above: Note: Responsible Ob service observer: CEEV AUTOFILE (3003) Creatinine [Mass/Vol] 0.46 mg/dL Low (0.50- 0.90 ) [facility] Work Phone: Comment on above: Note: Responsible Ob service observer: CEEV AUTOFILE (3003) Glucose [Mass/Vol] 92 mg/dL (70-99 ) [facility] Work Phone: Comment on above: Note: Responsible Ob service observer: CEEV AUTOFILE (3003) Magnesium [Mass/Vol] 49 mg/dL (>40 ) [facility] Work Phone: Comment on above: Note: HDL Guidelines :<40 [id number] Borderline>59 DesirableResponsible Observer: CEEV AUTOFILE (3003) Magnesium [Mass/Vol] 102 mg/dL (0-130 ) [facility] Work Phone: Comment on above: Note: LDL Guidelines :<100 [id number] Near to/above [id number] Borderline>159 UndesirableDirect (measured) LDL and calculated LDL are not interchangeable tests.Responsible Observer: CEEV AUTOFILE ([id number]) Magnesium [Mass/Vol] 173 mg/dL High (<150 ) [facility] Work Phone: Comment on above: Note: Triglyceride G uidelines:<150 [id number] [id number] High>499 Very highBased on AHA Guidelines for fasting triglyceride, February 2012.Responsible Observer: CEEV AUTOFILE ([id number]) Potassium [Moles/Vol] 4.2 mmol/L (3.7-5.3 ) [facility] Work Phone: Comment on above: Note: Responsible Ob service observer: CEEV AUTOFILE (3003) Protein [Mass/Vol] 7.5 g/dL (6.4-8.3 ) [facility] Work Phone: Comment on above: Note: Responsible Ob service observer: CEEV AUTOFILE (3003) Sodium [Moles/Vol] 135 mmol/L (135-144 ) [facility] Work Phone: Comment on above: Note: Responsible Ob service observer: CEEV AUTOFILE (3003) Urea nitrogen [Mass/Vol] 11 mg/dL (6-20 ) [facility] Work Phone: Comment on above: Note: Responsible Ob service observer: CEEV AUTOFILE (3003) Laboratory - Hematology and Cell countsOrdered By: Miguel Holley on 09-23-2020 Basophils/100 WBC (Bld) 1 % (0-2 ) [facility] Work Phone: Comment on above: Note: Responsible Ob service observer: XNV AUTOFILE (3018) Eosinophils (Bld) [#/Vol] 0.14 10*3/uL (0.00-0.44 ) [facility] Work Phone: Comment on above: Note: Responsible Ob service observer: XNV AUTOFILE (3018) Eosinophils/100 WBC (Bld) 2 % (1-4 ) [facility] Work Phone: Comment on above: Note: Responsible Ob service observer: XNV AUTOFILE (3018) Erythrocyte distribution width (RBC) [Ratio] 12.4 % (11.8-14.4 ) [facility] Work Phone: Comment on above: Note: Responsible Ob service observer: XNV AUTOFILE (3018) Hematocrit (Bld) [Volume fraction] 42.9 % (36.3-47.1 ) [facility] Work Phone: Comment on above: Note: Responsible Ob service observer: XNV AUTOFILE (3018) Hemoglobin (Bld) [Mass/Vol] 13.5 g/dL (11.9-15.1 ) [facility] Work Phone: Comment on above: Note: Responsible Ob service observer: XNV AUTOFILE (3018) Immature granulocytes/100 WBC (Bld) 0 % (0 ) [facility] Work Phone: Comment on above: Note: Responsible Ob service observer: XNV AUTOFILE (3018) Lymphocytes (Bld) [#/Vol] 2.71 10*3/uL (1.10-3.70 ) [facility] Work Phone: Comment on above: Note: Responsible Ob service observer: XNV AUTOFILE (3018) Lymphocytes/100 WBC (Bld) 30 % (24-43 ) [facility] Work Phone: Comment on above: Note: Responsible Ob service observer: XNV AUTOFILE (3018) MCH (RBC) [Entitic mass] 27.6 pg (25.2-33.5 ) [facility] Work Phone: Comment on above: Note: Responsible Ob service observer: XNV AUTOFILE (3018) MCHC (RBC) [Mass/Vol] 31.5 g/dL (28.4- 34.8 ) [facility] Work Phone: Comment on above: Note: Responsible Ob service observer: XNV AUTOFILE (3018) MCV (RBC) [Entitic vol] 87.6 fL (82.6-102.9 ) [facility] Work Phone: Comment on above: Note: Responsible Ob service observer: XNV AUTOFILE (3018) Monocytes (Bld) [#/Vol] 0.48 10*3/uL (0.10-1.20 ) [facility] Work Phone: Comment on above: Note: Responsible Ob service observer: XNV AUTOFILE (3018) Monocytes/100 WBC (Bld) 5 % (3-12 ) [facility] Work Phone: Comment on above: Note: Responsible Ob service observer: XNV AUTOFILE (3017) Platelet mean volume (Bld) [Entitic vol] 11.6 fL (8.1-13.5 ) [facility] Work Phone: Comment on above: Note: Responsible Ob service observer: XNV AUTOFILE (3017) Platelets (Bld) [#/Vol] 246 10*3/uL (138-453 ) [facility] Work Phone: Comment on above: Note: Responsible Ob service observer: XNV AUTOFILE (3017) RBC (Bld) [#/Vol] 4.90 10*6/uL (3.95-5.11 ) [facility] Work Phone: Comment on above: Note: Responsible Ob service observer: XNV AUTOFILE (3017) RBC morphology finding Nom (Bld) NOT REPORTED [facility] Work Phone: Segmented neutrophils/100 WBC (Bld) 62 % (36-65 ) [facility] Work Phone: Comment on above: Note: Responsible Ob service observer: XNV AUTOFILE (3018) WBC (Bld) [#/Vol] 9.2 10*3/uL (3.5-11.3 ) [facility] Work Phone: Comment on above: Note: Responsible Ob service observer: XNV AUTOFILE (3018) Lipid Prof, Fastingon 2020 Cholesterol,VLDL NOT REPORTED Normal 1-30 [facility] Comment on above: Performed By: #### L IPRF, CDP, CP, TSHX #### [facility] [address] [place] [address] Paper Feeder: Chato Aguirre MD Lipid, FastingOrdered By: Zandra Holley on 09-23-2020 Cholesterol [Mass/Vol] 186 mg/dL <200 [facility] [employer] Work Phone: Comment on above: Cholesterol Guidelines: <200 Desirable 200-240 Borderline >240 Undesirable Cholesterol in HDL [Mass/Vol] 49 mg/dL >40 [employer] Phone: Comment on above: HDL Guidelines: <40 Undesirable 40-59 Borderline >59 Desirable Cholesterol in LDL [Mass/Vol] 102 mg/dL 0 - 130 mg/dL [employer] Phone: Comment on above: LDL Guidelines: <100 Desirable 100-129 Near to/above Desirable 130-159 Borderline >159 Undesirable Direct (measured) LDL and calculated LDL are not interchangeable tests. Cholesterol in VLDL [Mass/Vol] NOT REPORTED High 1 - 30 mg/dL [employer] Phone: Cholesterol.total/Chol esterol in HDL [Mass ratio] 3.8 {ratio} <5 [facility] Phone: Triglyceride, Fasting 173 mg/dL High <150 [facility] [employer] Work Phone: Comment on above: Triglyceride Guidelines: <150 Desirable 150-199 Borderline 200-499 High >499 Very high Based on AHA Guidelines for fasting triglyceride, February 2012. No Panel InformationOrdered By: Miguel Holley on 09-23-2020 Interpretation and review of laboratory results Abnormal [employer] Phone: (cont.) See Note [facility] Work Phone: Comment on above: Note: Average GFR fo r 20-29 years old:116 mL/min/1.73sq mChronic Kidney Disease:<60 mL/min/1.73sq mKidney failure:<15 mL/min/1.73sq meGFR calculated using average adult body mass. Additional eGFR calculatoravailable at:http://www.HelloTel/multiple_crcl_2012.htmResponsible Observer: CEEV AUTOFILE (3003) Abs. Basophil 0.05 k/uL (0.00-0.20 ) [facility] Work Phone: Comment on above: Note: Responsible Ob service observer: XNV AUTOFILE (3018) Abs.Imm.Granulocyte <0.03 k/uL (0.00-0. 30 ) [facility] Work Phone: Comment on above: Note: Responsible Ob service observer: XNV AUTOFILE (3018) Abs.Neutrophil (Seg) 5.79 k/uL (1.50-8 .10 ) [facility] Work Phone: Comment on above: Note: Responsible Ob service observer: XNV AUTOFILE (3018) Albumin/Glob Ratio 1.3 (1.0-2.5 ) [facility] Work Phone: Comment on above: Note: Responsible Ob service observer: CEEV AUTOFILE (3003) Alkaline Phos 49 U/L (35-104 ) [facility] Work Phone: Comment on above: Note: Responsible Ob service observer: CEEV AUTOFILE (3003) Auto Diff Performed NOT REPORTED [facility] Work Phone: BUN/CRE Ratio NOT REPORTED (9-20 ) [facility] Work Phone: Cholesterol,VLDL NOT REPORTED mg/dL (1-30 ) [facility] Work Phone: GFR, Amer >60 mL/min (>60 ) [facility] Work Phone: Comment on above: Note: Responsible Ob service observer: CEEV AUTOFILE (3003) GFR,non Amer >60 mL/min (>60 ) [facility] Work Phone: Comment on above: Note: Responsible Ob service observer: CEEV AUTOFILE (3003) NRBC Automated 0.0 per_100_WBC (0.0 ) [facility] Work Phone: Comment on above: Note: Responsible Ob service observer: XNV AUTOFILE ([id number]) Platelet Estimate NOT REPORTED [facility] Work Phone: Reported Physicians See Note [facility] Work Phone: Comment on above: Note: Reported Physi cians:Ordering: Karena ChávezeeAttending: Karena ChávezeeReferring: Miguel Chávez Staging: NOT REPORTED [facility] Work Phone: Thyroid Stim. Horm. 3.38 mIU/L (0.30-5. 00 ) [facility] Work Phone: Comment on above: Note: Responsible Ob service observer: CEEV AUTOFILE (3003) WBC Morphology NOT REPORTED [facility] Work Phone: TSH with ReflexOrdered By: Kamryn Holley on 09-23-2020 TSH Qn 3.38 m[IU]/L [facility] Work Phone: APTTon 04-08-2020 aPTT Coag (Bld) [Time] 25.2 s [place], [place] Comment on above: IV Heparin Therapy Range: 62.0-94.0 Brain Natriuretic Peptideon 04-08-2020 Natriuretic peptide B (Bld) [Mass/Vol] pg/mL <300 pg/mL [place] Comment on above: Pro-BNP results ayse ot be compared to BNP results. Natriuretic peptide B (Bld) [Mass/Vol] Pro-BNP Reference Range: [place], [place] Comment on above: Rule Out: <300 [place] Zone: Age <50 300-450 Age 50-75 300-900 Age >75 300-1800 Usually represents mild to moderate HF but other cardiopulmonary causes cannot be ruled out. Rule In: Age <50 >450 Age 50-75 >900 Age >75 >1800 CBCon 04-08-2020 Erythrocyte distribution width (RBC) [Ratio] 11.9 % 11.8 - 14.4 % [place] Hematocrit (Bld) [Volume fraction] 37.9 % 36.3 - 47.1 % [place] Hemoglobin (Bld) [Mass/Vol] 12.5 g/dL 11.9 - 15.1 g/dL [place] MCH (RBC) [Entitic mass] 27.8 pg 25.2 - 33.5 pg [place] MCHC (RBC) [Mass/Vol] 33.0 g/dL 28.4 - 34.8 g/dL [place] MCV (RBC) [Entitic vol] 84.2 fL 82.6 - 102.9 fL [place] Platelet mean volume (Bld) [Entitic vol] 10.9 fL 8.1 - 13.5 fL [place] Platelets (Bld) [#/Vol] 184 10*3/uL [place] RBC (Bld) [#/Vol] 4.50 10*6/uL 3.95 - 5.1 1 m/uL [place] WBC (Bld) [#/Vol] 7.8 10*3/uL [place] WBC (Bld) [#/Vol] 0.0 10*3/uL 0.0 per 10 0 WBC [place] COVID-19on 04-08-2020 Interpretation and review of laboratory results Abnormal [place] SARS-CoV-2, Rapid DETECTED Abnormal Not Detected [place] Comment on above: Rapid NAAT: The [...] this assay. Fact sheet for Healthcare Providers: https://www.fda.gov/media/474107/download Fact sheet for Patients: https://www.fda.gov/media/355917/download Methodology: Isothermal Nucleic Acid Amplification Results reported to the appropriate Health Department Source .NASOPHARYNGEAL SWAB [place], [place] CT CHEST PULMONARY EMBOLISM W CONTRASTon 04-08-2020 Unremarkable appeara nce of the chest with no evidence of pulmonary embolism and clear lungs. Incidentally noted hepatic fatty infiltration. [place], [place] EXAMINATION: CTA OF THE CHEST 04/08/2020 [...] No significant osseous or soft tissue abnormality. [place], [place] Jean Marie, [facility] Incoming Radiant Results From [email or web address] - 04/08/2020 4:12 PM EST EXAMINATION: CTA [...] clear lungs. Incidentally noted hepatic fatty infiltration. [place] Comprehensive Metabolic Pane fermin 04-08-2020 Albumin [Mass/Vol] 4.1 g/dL 3.5 - 5.2 g/dL [place] Albumin/Globulin [Mass ratio] 1.4 {ratio} [place] ALP [Catalytic activity/Vol] 62 U/L 35 - 104 U/L [place] ALT [Catalytic activity/Vol] 19 U/L 5 - 33 U/L [place] Anion gap [Moles/Vol] 10 mmol/L 9 - 17 mmol/L [place] AST [Catalytic activity/Vol] 20 U/L <32 [place] Bilirubin Ql (U) 0.48 mg/dL 0.3 - 1.2 mg/dL [place] Bun/Cre Ratio 23 High [place] Calcium [Mass/Vol] 8.9 mg/dL 8.6 - 10. 4 mg/dL [place] Chloride [Moles/Vol] 102 mmol/L 98 - 10 7 mmol/L [place] CO2 [Moles/Vol] 23 mmol/L 20 - 31 mmol/L [place] Creatinine [Mass/Vol] 0.47 mg/dL Low 0.5 - 0.9 mg/dL [place] GFR >60 >60 mL/min [place] GFR Non- >60 >60 mL/min [place] Glucose [Mass/Vol] 88 mg/dL 70 - 99 mg/dL [place] Interpretation and review of laboratory results Abnormal [place] Potassium [Moles/Vol] 3.7 mmol/L 3.7 - 5.3 mmol/L [place] Protein [Mass/Vol] 7.1 g/dL 6.4 - 8.3 g/dL [place] Sodium [Moles/Vol] 135 mmol/L 135 - 144 mmol/L [place] Urea nitrogen [Mass/Vol] 11 mg/dL 6 - 20 mg/dL [place] Metabolic Panelon 04-08-2020 GFR/1.73 sq M predicted among non-blacks MDRD (S/P/Bld) [Vol rate/Area] [place] Comment on above: Stage 1: Some [...] body mass. Additional eGFR calculator available at: http://www.HelloTel/multiple_crcl_2012.htm Otheron 04-08-2020 SARS-CoV-2 [place], [place] , Urineon 0 Beta HCG ( test) Ql (U) Negative NEGATIVE [place] Comment on above: Specimens with hCG l evels near the threshold of the test (25 mIU/mL) may give a negative or indeterminate result. In such cases, another test should be performed with a new specimen in 48-72 hours. If early is suspected clinically in this setting, correlation with quantitative serum b-hCG level is suggested. [facility] has confirmed the use of plasma for this test. This has not been cleared or approved by the U.S. Food and Drug Administration. The FDA has determined that such clearance is not necessary. Protime-INRon 04-08-2020 INR Coag (PPP) [Relative time] 1.0 {INR} [place] Comment on above: Non-therapeutic Range: INR = 0.9-1.2 Therapeutic Range: Moderate Anticoagulant Intensity: INR = 2.0-3.0 High Anticoagulant Intensity: INR = 2.5-3.5 PT Coag (PPP) [Time] 13.2 s [place] Troponinon 04-08-2020 Troponin I.cardiac [Mass/Vol] NOT REPORTED [place] Troponin T.cardiac [Mass/Vol] NOT REPORTED <0.03 ng/mL [place] Troponin, High Sensitivity <6 0 - 14 ng/L [place] Comment on above: High Sensitivity Troponin values cannot be compared with other Troponin methodologies. Patients with high levels of Biotin oral intake (i.e >5mg/day) may have falsely decreased Troponin levels. Samples collected within 8 hours of biotin intake may require additional information for diagnosis. CBC Auto Differentialon Basophils (Bld) [#/Vol] 0.05 10*3/uL [employer] Phone: Basophils/100 WBC (Bld) 1 % 0 - 2 % [employer] Phone: Differential Type NOT REPORTED [employer] Phone: Eosinophils (Bld) [#/Vol] 0.15 10*3/uL [employer] Phone: Eosinophils/100 WBC (Bld) 1 % 1 - 4 % [employer] Phone: Erythrocyte distribution width (RBC) [Ratio] 12.1 % 11.8 - 14.4 % [employer] Phone: Hematocrit (Bld) [Volume fraction] 44.5 % 36.3 - 47.1 % [employer] Phone: Hemoglobin (Bld) [Mass/Vol] 14.0 g/dL 11.9 - 15.1 g/dL [employer] Phone: Immature granulocytes (Bld) [#/Vol] 0 % 0 [employer] Phone: Immature granulocytes (Bld) [#/Vol] 10*3/uL [employer] Phone: Interpretation and review of laboratory results Abnormal [employer] Phone: Lymphocytes (Bld) [#/Vol] 2.83 10*3/uL [employer] Phone: Lymphocytes/100 WBC (Bld) 27 % 24 - 43 % [employer] Phone: MCH (RBC) [Entitic mass] 27.6 pg 25.2 - 33.5 pg [employer] Phone: MCHC (RBC) [Mass/Vol] 31.5 g/dL 28.4 - 34.8 g/dL [employer] Phone: MCV (RBC) [Entitic vol] 87.6 fL 82.6 - 102.9 fL [employer] Phone: Monocytes (Bld) [#/Vol] 0.52 10*3/uL [employer] Phone: Monocytes/100 WBC (Bld) 5 % 3 - 12 % [employer] Phone: Platelet mean volume (Bld) [Entitic vol] 12.0 fL 8.1 - 13.5 fL [employer] Phone: Platelets (Bld) [#/Vol] NOT REPORTED [employer] Phone: Platelets (Bld) [#/Vol] 241 10*3/uL [employer] Phone: RBC (Bld) [#/Vol] 5.08 10*6/uL 3.95 - 5.1 1 m/uL [employer] Work Phone: RBC morphology finding Nom (Bld) NOT REPORTED [employer] Phone: Segmented neutrophils/100 WBC (Bld) 66 % High 36 - 65 % [employer] Phone: Segs Absolute 7.04 [employer] Work Phone: WBC (Bld) [#/Vol] 10.6 10*3/uL [employer] Work Phone: WBC (Bld) [#/Vol] 0.0 10*3/uL 0.0 per 10 0 WBC [employer] Work Phone: WBC Morphology NOT REPORTED Tereza Hernandes alth Work Phone: Cardiacon 07-06-2019 Cholesterol [Mass/Vol] 198 mg/dL (<200) [facility] Work Phone: Comment on above: Note: Cholesterol Gu idelines:<200 [id number] Borderline>240 UndesirableResponsible Observer: CCEV AUTOFILE (0905) Comprehensive Metabolic Pane fermin 07-06-2019 Albumin [Mass/Vol] 4.5 g/dL 3.5 - 5.2 g/dL [employer] Work Phone: Albumin/Globulin [Mass ratio] 1.4 {ratio} [employer] Work Phone: ALP [Catalytic activity/Vol] 62 U/L 35 - 104 U/L [employer] Work Phone: ALT [Catalytic activity/Vol] 39 U/L High 5 - 33 U/L [employer] Work Phone: Anion gap [Moles/Vol] 16 mmol/L 9 - 17 mmol/L [employer] Work Phone: AST [Catalytic activity/Vol] 32 U/L High <32 [employer] Phone: Bilirubin Ql (U) 0.25 mg/dL Low 0.3 - 1.2 mg/dL [employer] Work Phone: Bun/Cre Ratio NOT REPORTED Tereza Mario lt Work Phone: Calcium [Mass/Vol] 9.8 mg/dL 8.6 - 10. 4 mg/dL [employer] Work Phone: Chloride [Moles/Vol] 103 mmol/L 98 - 10 7 mmol/L [employer] Work Phone: CO2 [Moles/Vol] 19 mmol/L Low 20 - 31 mmol/L [employer] Phone: Creatinine [Mass/Vol] 0.51 mg/dL 0.5 - 0.9 mg/dL [employer] Phone: GFR >60 >60 mL/min [employer] Phone: GFR Non- >60 >60 mL/min [employer] Phone: GFR/1.73 sq M predicted among non-blacks MDRD (S/P/Bld) [Vol rate/Area] [employer] Phone: Comment on above: Average GFR for 20-2 9 years old: 116 mL/min/1.73sq m Chronic Kidney Disease: <60 mL/min/1.73sq m Kidney failure: <15 mL/min/1.73sq m eGFR calculated using average adult body mass. Additional eGFR calculator available at: http://www.HelloTel/multiple_crcl_2012.htm GFR/1.73 sq M predicted among non-blacks MDRD (S/P/Bld) [Vol rate/Area] NOT REPORTED [employer] Phone: Glucose [Mass/Vol] 89 mg/dL 70 - 99 mg/dL [employer] Phone: Interpretation and review of laboratory results Abnormal [employer] Phone: Potassium [Moles/Vol] 4.6 mmol/L 3.7 - 5.3 mmol/L [employer] Phone: Protein [Mass/Vol] 7.8 g/dL 6.4 - 8.3 g/dL [employer] Phone: Sodium [Moles/Vol] 138 mmol/L 135 - 144 mmol/L [employer] Phone: Urea nitrogen [Mass/Vol] 14 mg/dL 6 - 20 mg/dL [employer] Phone: Hematologyon 07-06-2019 Basophils/100 WBC (Bld) 1 % (0-2) [facility] Work Phone: Comment on above: Note: Responsible Ob service observer: XNV AUTOFILE (3018) Eosinophils (Bld) [#/Vol] 0.15 10*3/uL (0.00-0.44) [facility] Work Phone: Comment on above: Note: Responsible Ob service observer: XNV AUTOFILE (3018) Eosinophils/100 WBC (Bld) 1 % (1-4) [facility] Work Phone: Comment on above: Note: Responsible Ob service observer: XNV AUTOFILE (3018) Hematocrit (Bld) [Volume fraction] 44.5 % (36.3-47.1) [facility] Work Phone: Comment on above: Note: Responsible Ob service observer: XNV AUTOFILE (3018) Hemoglobin (Bld) [Mass/Vol] 14.0 g/dL (11.9-15.1) [facility] Work Phone: Comment on above: Note: Responsible Ob service observer: XNV AUTOFILE (3018) Lymphocytes (Bld) [#/Vol] 2.83 10*3/uL (1.10-3.70) [facility] Work Phone: Comment on above: Note: Responsible Ob service observer: XNV AUTOFILE (3018) Lymphocytes/100 WBC (Bld) 27 % (24-43) [facility] Work Phone: Comment on above: Note: Responsible Ob service observer: XNV AUTOFILE (3018) MCH (RBC) [Entitic mass] 27.6 pg (25.2-33.5) [facility] Work Phone: Comment on above: Note: Responsible Ob service observer: XNV AUTOFILE (3018) MCV (RBC) [Entitic vol] 87.6 fL (82.6-102.9 ) [facility] Work Phone: Comment on above: Note: Responsible Ob service observer: XNV AUTOFILE (3018) Monocytes (Bld) [#/Vol] 0.52 10*3/uL (0.10-1.20) [facility] Work Phone: Comment on above: Note: Responsible Ob service observer: XNV AUTOFILE (3018) Monocytes/100 WBC (Bld) 5 % (3-12) [facility] Work Phone: Comment on above: Note: Responsible Ob service observer: XNV AUTOFILE (3018) Platelets (Bld) [#/Vol] NOT REPORTED [facility] Work Phone: [phone] Platelets (Bld) [#/Vol] 241 10*3/uL (138-453) [facility] Work Phone: [phone] Comment on above: Note: Responsible Ob service observer: XNV AUTOFILE (3018) RBC (Bld) [#/Vol] 5.08 10*6/uL (3.95-5.11) [facility] Work Phone: [phone] Comment on above: Note: Responsible Ob service observer: XNV AUTOFILE (3018) RBC morphology finding Nom (Bld) NOT REPORTED [facility] Work Phone: [phone] WBC (Bld) [#/Vol] 0.0 per_100_WBC (0.0) [facility] Work Phone: [phone] Comment on above: Note: Responsible Ob service observer: XNV AUTOFILE (3018) WBC (Bld) [#/Vol] 10.6 10*3/uL (3.5-11.3) [facility] Work Phone: Comment on above: Note: Responsible Ob service observer: XNV AUTOFILE (3018) Lipid, Fastingon 07-06-2019 Cholesterol [Mass/Vol] 198 mg/dL <200 [facility] [employer] Work Phone: Comment on above: Cholesterol Guidelines: <200 Desirable 200-240 Borderline >240 Undesirable Cholesterol in HDL [Mass/Vol] 53 mg/dL >40 [facility] [employer] Phone: Comment on above: HDL Guidelines: <40 Undesirable 40-59 Borderline >59 Desirable Cholesterol in LDL [Mass/Vol] 118 mg/dL 0 - 130 mg/dL [employer] Phone: Comment on above: LDL Guidelines: <100 Desirable 100-129 Near to/above Desirable 130-159 Borderline >159 Undesirable Direct (measured) LDL and calculated LDL are not interchangeable tests. Cholesterol in VLDL [Mass/Vol] NOT REPORTED 1 - 30 mg/dL [employer] Phone: Cholesterol.total/Chol esterol in HDL [Mass ratio] 3.7 {ratio} <5 [facility]: Triglyceride, Fasting 135 mg/dL <150 [facility] Phone: Comment on above: Triglyceride Guidelines: <150 Desirable 150-199 Borderline 200-499 High >499 Very high Based on AHA Guidelines for fasting triglyceride, February 2012. Metabolic Panelon 07-06-2019 Albumin [Mass/Vol] 4.5 g/dL (3.5-5.2) [facility] Work Phone: Comment on above: Note: Responsible Ob service observer: CCEV AUTOFILE (3002) ALT [Catalytic activity/Vol] 39 U/L High (5-33) [facility] Work Phone: Comment on above: Note: Responsible Ob service observer: CCEV AUTOFILE (3002) Anion gap [Moles/Vol] 16 mmol/L (9-17) [facility] Work Phone: Comment on above: Note: Responsible Ob service observer: CCEV AUTOFILE (3002) AST [Catalytic activity/Vol] 32 U/L High (<32) [facility] Work Phone: Comment on above: Note: Responsible Ob service observer: CCEV AUTOFILE (3002) Bilirubin [Mass/Vol] 0.25 mg/dL Low (0.3-1.2) [facility] Work Phone: Comment on above: Note: Responsible Ob service observer: CCEV AUTOFILE (3002) Calcium [Mass/Vol] 9.8 mg/dL (8.6-10.4) [facility] Work Phone: Comment on above: Note: Responsible Ob service observer: CCEV AUTOFILE (3002) Chloride [Moles/Vol] 103 mmol/L (98-107) [facility] Work Phone: Comment on above: Note: Responsible Ob service observer: CCEV AUTOFILE (3002) CO2 [Moles/Vol] 19 mmol/L Low (20-31) [facility] Work Phone: Comment on above: Note: Responsible Ob service observer: CCEV AUTOFILE (3002) Creatinine [Mass/Vol] 0.51 mg/dL (0.50-0.90) [facility] Work Phone: Comment on above: Note: Responsible Ob service observer: CCEV AUTOFILE (3002) Glucose [Mass/Vol] 89 mg/dL (70-99) [facility] Work Phone: Comment on above: Note: Responsible Ob service observer: CCEV AUTOFILE (3002) Potassium [Moles/Vol] 4.6 mmol/L (3.7-5.3) [facility] Work Phone: Comment on above: Note: Responsible Ob service observer: CCEV AUTOFILE (3002) Protein [Mass/Vol] 7.8 g/dL (6.4-8.3) [facility] Work Phone: Comment on above: Note: Responsible Ob service observer: CCEV AUTOFILE (3002) Sodium [Moles/Vol] 138 mmol/L (135-144) [facility] Work Phone: Comment on above: Note: Responsible Ob service observer: CCEV AUTOFILE (3002) Urea nitrogen [Mass/Vol] 14 mg/dL (6-20) [facility] Work Phone: Comment on above: Note: Responsible Ob service observer: CCEV AUTOFILE (3002) Otheron 07-06-2019 (cont.) See Note [facility] Work Phone: Comment on above: Note: Average GFR fo r 20-29 years old:116 mL/min/1.73sq mChronic Kidney Disease:<60 mL/min/1.73sq mKidney failure:<15 mL/min/1.73sq meGFR calculated using average adult body mass. Additional eGFR calculatoravailable at:http://www.HelloTel/multiple_crcl_2012.htmResponsible Observer: CCEV AUTOFILE (3002) Abs. Basophil 0.05 k/uL (0.00-0.20) [facility] Work Phone: [phone] Comment on above: Note: Responsible Ob service observer: XNV AUTOFILE (3018) Abs.Imm.Granulocyte <0.03 k/uL (0.00-0.30) [facility] Work Phone: [phone] Comment on above: Note: Responsible Ob service observer: XNV AUTOFILE (3018) Abs.Neutrophil (Seg) 7.04 k/uL (1.50-8.10) [facility] Work Phone: [phone] Comment on above: Note: Responsible Ob service observer: XNV AUTOFILE (3018) Albumin/Glob Ratio 1.4 (1.0-2.5) [facility] Work Phone: Comment on above: Note: Responsible Ob service observer: CCEV AUTOFILE (3002) Alkaline Phos 62 U/L (35-104) [facility] Work Phone: [phone] Comment on above: Note: Responsible Ob service observer: CCEV AUTOFILE (3002) Auto Diff Performed NOT REPORTED [facility] Work Phone: [phone] BUN/CRE Ratio NOT REPORTED (9-20) [facility] Work Phone: Cholesterol,HDL 53 mg/dL (>40) [facility] Work Phone: [phone] Comment on above: Note: HDL Guidelines :<40 Qgwijqrauvr11-79 Borderline>59 DesirableResponsible Observer: CCEV AUTOFILE (3002) Cholesterol,LDL 118 mg/dL (0-130) [facility] Work Phone: Comment on above: Note: LDL Guidelines :<100 Awijpomfu063-494 Near to/above Nducvzckk460-807 Borderline>159 UndesirableDirect (measured) LDL and calculated LDL are not interchangeable tests.Responsible Observer: CCEV AUTOFILE (3002) Cholesterol,VLDL NOT REPORTED mg/dL (-30) [facility] Work Phone: [phone] Cholesterol.total/Chol esterol in HDL [Mass ratio] 3.7 {ratio} (<5) [facility] Work Phone: [phone] Comment on above: Note: Responsible Ob service observer: CCEV AUTOFILE (3002) Erythrocyte distribution width (RBC) [Ratio] 12.1 % (11.8-14.4) [facility] Work Phone: [phone] Comment on above: Note: Responsible Ob service observer: XNV AUTOFILE (3018) Free Insulin 34 uIU/mL High (3-19) [facility] Work Phone: [phone] Comment on above: Note: Responsible Ob service observer: LAB ARUP (0603) GFR, Amer >60 mL/min (>60) [facility] Work Phone: [phone] Comment on above: Note: Responsible Ob service observer: CCEV AUTOFILE (3002) GFR,non Amer >60 mL/min (>60) [facility] Work Phone: [phone] Comment on above: Note: Responsible Ob service observer: CCEV AUTOFILE (3002) Immature granulocytes (Bld) [#/Vol] 0 % (0) [facility] Work Phone: [phone] Comment on above: Note: Responsible Ob service observer: XNV AUTOFILE (3018) MCHC (RBC) [Mass/Vol] 31.5 g/dL (28.4-34.8) [facility] Work Phone: [phone] Comment on above: Note: Responsible Ob service observer: XNV AUTOFILE (3018) Performing Lab: see note [facility] Work Phone: [phone] Comment on above: Note: BRI Butler [facility] [address] Note: RUST - RUST La [facility]atories [address] [facility] [id number] Platelet mean volume (Bld) [Entitic vol] 12.0 fL (8.1-13.5) [facility] Work Phone: Comment on above: Note: Responsible Ob service observer: XNV AUTOFILE (3018) Reported Physicians See Note [facility] Work Phone: Comment on above: Note: Reported Physi cians:Ordering: Allyson Floyd AAttending: No FloydthiaReferring: Allyson Floyd Segmented neutrophils/100 WBC (Bld) 66 % High (36-65) [facility] Work Phone: Comment on above: Note: Responsible Ob service observer: XNV AUTOFILE (7308) Staging: NOT REPORTED [facility] Work Phone: Thyroid Stim. Horm. 4.15 mIU/L (0.30-5.00) [facility] Work Phone: Comment on above: Note: Responsible Ob service observer: CCEV AUTOFILE (3002) Thyroxine, Free 1.21 ng/dL (0.93-1.70) [facility] Work Phone: Comment on above: Note: Responsible Ob service observer: CCEV AUTOFILE (3002) Total Insulin 46 uIU/mL High (3-19) [facility] Work Phone: Comment on above: Note: (NOTE)INTERPRE TIVE INFORMATION: Insulin, Free and TotalThis test reacts on a nearly equimolar basis with the analogsinsulin aspart, insulin glargine, and insulin lispro. Insulindetemir exhibits approximately 50 percent cross-reactivity. Testreactivity with insulin glulisine is negligible (<3 percent). Toconvert to pmol/L, multiply uIU/mL by 6.0. Reference intervalsestablished for fasting specimens.Performed by [employer],[address] [facility], [facility] [id number] www.[employer], [place] Xiong MD, Lab. DirectorResponsible Observer: LAB ARUP (0603) Triglyceride,Fasting 135 mg/dL (<150) [facility] Work Phone: Comment on above: Note: Triglyceride G uidelines:<150 [id number] Wtugpwyanv436-712 High>499 Very highBased on AHA Guidelines for fasting triglyceride, February 2012.Responsible Observer: CCEV AUTOFILE (2046) Triiodothyronine T3 150 ng/dL (80-200) [facility] Work Phone: Comment on above: Note: Responsible Ob service observer: CEEV AUTOFILE (6251) WBC Morphology NOT REPORTED [facility] Work Phone: T3on 07-06-2019 T3, Total 150 ng/dL 80 - 200 ng/dL [employer] Phone: T4, Freeon 07-06-2019 Thyroxine, Free 1.21 ng/dL 0.93 - 1.7 ng/dL [employer] Work Phone: TSH without Reflexon 020 TSH Qn 4.15 m[IU]/L [employer] Work Phone: US NON OB TRANSVAGINALon Satisfactory IUD position. RECOMMENDATIONS: No follow-up imaging is recommended. Reference: US BPRs based on Radiology 2009;256(3):943-54; CT/MR BPRs based on J Am Joanne Radiol 2013;10:675-681. [employer] [facility] [place]DET[place] EXAMINATION: PELVIC ULTRASOUND 02/02/2019 TECHNIQUE: Transvaginal [...] Free Fluid: No evidence of free fluid. [facility] Jean Marie, Mhpn Incoming Radiant Results From [email or web address] - 02/02/2019 8:44 AM EDT EXAMINATION: PELVIC [...] based on J Am Joanne Radiol 2013;10:675-681. [facility] CNOVon 08-21-2018 CNOV Office Visit (WALK[facility] ) ----- ESTEFANIA NAVARRETE ([id number]) 1995 F Date Time Provider Department 08/21/18 12:00 PM MIGUEL TENA (DIANELYS) WALKBR During your visit today, we recorded the following information about you: Temperature Pulse Respiration Blood pressure 97.6 degrees 99/minute 16/minute 136/81 Weight 109.8 kg Miguel TenaRUSTAM 08/21/2018 12:46 PM Signed Subjective The history is provided by the patient. No auto service advisor was used. Cough This is a new [...] 3-5 days or get worse Miguel Tena APRN.DIANELYS Tena APRN.DIANELYS 08/21/2018 12:30 PM Signed Home going instructions [...] is a safe and effective decongestant 3. [place] Nas[place] may offer relief of nasal and head [...] help open respiratory and sinus passages. - [place] Nasal [place] may offer relief of nasal and head [...] get worse. Thank you for coming to [facility] today. I appreciate your confidence in choosing the [facility] for your medical care. Miguel Tena APRN.HANGING FLAGS DECORATOR [facility] [place] [id number] [facility] [address] Referring Provider: SELF [200] Allergies [...] is a safe and effective decongestant 3. [place] Nasal [place] may offer relief of nasal and head [...] help open respiratory and sinus passages. - [place] Nas[place] may offer relief of nasal and head [...] get worse. [facility] I appreciate your confidence in choosing the [facility] for your medical care. Miguel Tena APRN.DIANELYS [facility] [place] [id number] [facility] [id number] Prescriptions ordered this encounter Disp Refills [...] by MIGUEL TENA CNP on 08/21/18 Normal [facility] PROGRESSon 08-21-2018 Protein mass conc HNO ID: [id number] Author: Miguel Tena Service: ? Author Type: Nurse Practitioner Type: Progress Notes Filed: 08/21/2018 12:46 PM Note Text: Subjective The history is provided by the patient. No auto service advisor was used. Cough This is a new [...] 3-5 days or get worse Miguel Tena APRN.HANGING FLAGS DECORATOR Normal [facility] CNCOon 12-22-2017 CNCO Letter Text Erica Velazquez MD [facility] [address] [place] [address] Estefania Navarrete December 22, 2017 Estefania Navarrete [address] [facility] [address] Dear Ms. Navarrete, It was noted that you did not keep your scheduled appointment on 12-22-17. It is important to contact the office in advance if you are unable to keep your appointment so that it is available for other patients. Your medical care is important to us. Please call our office to reschedule an appointment. Sincerely, Erica Velazquez MD [facility] Consult Reporton 01-05-2017 Consult Report Patient: JITENDRA NAVARRETE Age: 21 years Sex: Female : 1995 Associated Diagnoses: None Author: TYRON MA RES, KAREN [facility] Podiatry DepartmentReason for Consult: Active Problems (1)Crush [...] discussed with attending physician, Dr. Jaime Shepard [phone] ically Signed by: KAREN SHEPARD DPM, RES on 01/04/2017 13:59 EDTElectronically Co-Signed by: KAREN SHEPARD DPM, RESon 01/04/2017 14:37 EDTElectronically Co-Signed by: Rene REYES DPM 01/05/2017 18:28 EDT Normal [facility] APTTon 01-04-2017 aPTT 29.9 Second(s) Normal [facility] Comment on above: Result Comment: VERI FIED by Discern Expert. Performed By: #### 1 01682, [id number], 705941, 227682, 772306, 991492 ####[facility] [address] [place] [address] Medical Director: David Doe MD aPTT 25.9 Second(s) Normal 25.0-36.[address] [facility] Comment on above: Performed By: #### 1 92216, 2228191, 665797, 739589, 708156, 565712 ####[facility] [address] [place] [address] Medical Director: David Doe MD AUTO DIFFon 01-04-2017 Basophils Auto #/vol (Bld) 0.04 x1000 Normal 0.00-0.[address] [facility] Comment on above: Performed By: #### 1 76309, 9250734, 210270, 795958, 364316, 714843 ####[facility] [address] [place] [address] Medical Director: David Doe MD Basos % 0.5 % Normal [facility] Comment on above: Performed By: #### 1 96666, 7657002, 514696, 699017, 461642, 018585 ####[facility] [address] [place] [address] Medical Director: David Doe MD Eos Count 0.10 x1000 Normal 0.00-0.[address] [facility] Comment on above: Performed By: #### 1 50981, 3228586, 264071, 423552, 883612, 297393 ####[facility] [address] [place] [address] Medical Director: David Doe MD Eosinophils/100 leukocytes 1.0 % Normal [facility] Comment on above: Performed By: #### 1 34235, 5618595, 619768, 029916, 549397, 070811 ####[facility] [address] [place] [id number] Medical Director: David Doe MD Lymphocytes 2.84 x1000 Normal 1.20-4.[address] [facility] Comment on above: Performed By: #### 1 77956, 9200074, 091005, 361186, 578187, 587910 ####[facility] [address] [place] [address] Medical Director: David Doe MD Lymphocytes/100 leukocytes 29.4 % Normal [facility] Comment on above: Performed By: #### 1 62831, 8373129, 253775, 578047, 353463, 185182 ####[facility] [address] [place] [address] Medical Director: David Doe MD [place] Count 0.68 x1000 Normal 0.10-1.[address] [facility] Comment on above: Performed By: #### 1 57153, 2202382, 949273, 168521, 979586, 492750 ####[facility] [address] [place] [address] Medical Director: David Doe MD Monocytes/100 leukocytes 7.0 % Normal [facility] Comment on above: Performed By: #### 1 52379, 9698553, 028252, 506668, 561821, 511091 ####[facility] [address] [place] [address] Medical Director: David Doe MD Neutrophils 5.98 x1000 Normal 1.40-8.[address] [facility] Comment on above: Performed By: #### 1 65149, 2352143, 743669, 553160, 071987, 106964 ####[facility] [address] [place] [address] Medical Director: David Doe MD Neutrophils/100 WBC Auto (Bld) 62.0 % Normal [facility] Comment on above: Performed By: #### 1 47493, 7184545, 490980, 849955, 070831, 064386 ####[facility] [address] [place] [address] Medical Director: David Doe MD COMPMETAon 01-04-2017 Globulin 4.0 g/dL Normal [facility] Comment on above: Performed By: #### 1 48336, 7684132, 824239, 743310, 470593, 292361 ####[facility] [address] [place] [address] Medical Director: David Doe MD Osmolality 277 mOsm/kg Normal 275-[address] [facility] Comment on above: Performed By: #### 1 60445, 5124407, 365115, 727838, 182214, 071769 ####[facility] [address] [place] [address] Medical Director: David Doe MD eGFR (non-black) mL/min/{1.73_m2} Normal So [facility] Comment on above: Result Comment: Afri can Libyan GFR Calc Performed By: #### 1 61131, 6032107, 981625, 658187, 443794, 216043 ####[facility] [address] [place] [address] Medical Director: David Doe MD Result Comment: Non GFR CalcMedical judgement is necessary to interpret GFR. The calculated GFR may not accurately reflect renal status in patients >70 years, women, acutely ill hospitalized patients and patients with acute renal failure or known renal disease.Note:Creatinine clearance (not GFR) should be used for drug dosing. Albumin/Globulin Ratio 0.8 {ratio} Normal [facility] Comment on above: Performed By: #### 1 15594, 3155937, 074439, 375389, 995483, 722430 ####[facility] [address]mblydg58[address] [place] [address] Medical Director: David Doe MD BUN/Creatinine Ratio 17.6 mg/mg Normal [facility] Comment on above: Performed By: #### 1 86341, 3580232, 850096, 959977, 993868, 336263 ####[facility] Ffcyodbd21535 [place] [address] Medical Director: David Doe MD Alk Phos 61 unit/L Normal 45-[address] [facility] Comment on above: Performed By: #### 1 93561, 8666870, 787013, 823489, 328197, 016359 ####[facility] Vtifa[address]i90574 [place] [address] Medical Director: David Doe MD Bilirubin (total) 0.41 mg/dL Normal 0.20-1.00 [facility] Comment on above: Performed By: #### 1 97827, 0264234, 138878, 567735, 347906, 744759 ####[facility] Trbwccuf81651 [place] [address] Medical Director: David Doe MD Protein 7.4 g/dL Normal 6.0-8.[address] [facility] Comment on above: Performed By: #### 1 82055, 7448038, 830282, 661456, 108811, 468028 ####[facility] Qfxyarpx99699 [place] [address] Medical Director: Daivd Doe MD GPT 16 unit/L Normal 13-[address] [facility] Comment on above: Result Comment: Mariposa puncture should occur prior to sulfasalazine and/or sulfapyridine administration due to the potential for falsely depressed results.Baseline assay values before administration of sulfasalazine and sulfapyridine therapy would not be affected. Performed By: #### 1 89683, 2425745, 788013, 624609, 781897, 115425 ####[facility] [address] [place] [address] Medical Director: David Doe MD Creatinine 0.7 mg/dL Normal 0.6-1.[address] [facility] Comment on above: Performed By: #### 1 70485, 3344985, 342463, 825059, 275206, 336260 ####[facility] [address] [place] [address] [facility] Director: David Doe MD GOT 14 unit/L Low 15-[address] [facility] Comment on above: Result Comment: Mariposa puncture should occur prior to sulfasalazine and/or sulfapyridine administration due to the potential for falsely depressed results.Baseline assay values before administration of sulfasalazine and sulfapyridine therapy would not be affected. Performed By: #### 1 19613, 5590433, 716741, 109566, 144287, 248180 ####[facility] [address] [place] [address] Medical Director: David Doe MD Urea nitrogen 13 mg/dL Normal 10-[address] [facility] Comment on above: Performed By: #### 1 65345, 4729166, 599279, 902083, 606463, 698000 ####[facility] Johchfso44835 [place] [address] Medical Director: David Doe MD Glucose mass conc 86 mg/dL Normal 72-100 [facility] Comment on above: Result Comment: Mariposa puncture should occur prior to sulfasalazine administration due to the potential for falsely depressed results. Venipuncture should occur prior to sulfapyridine administration due to the potential falsely elevated results.Baseline assay values before administration of sulfasalazine and sulfapyridine therapy would not be affected. Performed By: #### 1 77826, 0504575, 918841, 195551, 091740, 303970 ####[facility] Iimqgykn67273 [place], [place] [id number]) [phone] Director: David Doe MD Albumin 3.4 g/dL Normal 3.4-5.[address] [facility] Comment on above: Performed By: #### 1 59898, 6259206, 295510, 732937, 637202, 056530 ####[facility] [address]efynpfi[address]33 [place] [address] Medical Director: David Doe MD CO2 19.0 mmol/L Low 21.0-32.[address] [facility] Comment on above: Performed By: #### 1 51578, 4187144, 124983, 209398, 188237, 540723 ####[facility] [address]kg[address]jpp17[address] [place], [place] [id number]) [phone] Director: David Doe MD Calcium 9.0 mg/dL Normal 8.5-10.[address] [facility] Comment on above: Performed By: #### 1 41427, 3069777, 869445, 689300, 713210, 984196 ####[facility] Nvlzkxti58113 [place], [place] [id number]) [phone] Director: David Doe MD Potassium molar conc 3.7 mmol/L Normal 3.5-5.1 [facility] Comment on above: Performed By: #### 1 29557, 6387403, 664038, 834546, 961597, 314202 ####[facility] Yrjqdkvq70596 [place], [place] [id number]) [phone] Director: David Doe MD Sodium 139 mmol/L Normal 135-[address] [facility] Comment on above: Performed By: #### 1 80940, 5808629, 233373, 610425, 008775, 699704 ####[facility] Zdkckgjg50701 [place], [place] [id number]) [phone] Director: David Doe MD Chloride 108 mmol/L Normal 100-[address] [facility] Comment on above: Performed By: #### 1 59698, 8484153, 127491, 518008, 085671, 533230 ####[facility] Srpfmbyv44937 [place], [place] [id number]) [phone] Director: David Doe MD CT LOWER EXTREMITY [...] Out: 01/04/17 12:59:[address] [facility] ED Physician Reporton 2016 ED Physician [...] Plan Diagnosis Crush injury of right foot (NAC16-DN S97.81XA, Working, Medical) Plan Condition: Stable. Disposition: ED Discharge to Home was placed.(01/04/2017 13:39:31 EDT, Constant Order). Prescriptions: Launch prescriptions Pharmacy:Percocet 5/325 ([id number]) oral tablet (Prescribe): 1 tabs, ORAL, [id number], PRN: for pain, 24 tabs, 0 Refill(s)doxycycline hyclate 100 mg oral tablet (Prescribe): 100 mg = 1 tabs, ORAL, BID, for 10 days, 20 tabs, 0 Refill(s). Patient was given the following educational materials: Cryotherapy, Dsvc-mp-Dpiw, Compartment Syndrome of the Foot, Compartment Syndrome of the Foot, Cryotherapy, Ihxv-at-Pdrr. Follow up with: [facility] [...] MD 01/04/2017 14:[address] [facility] ED Progress Noteon 7 ED Progress [...] medicatedsig other at bedsidepodiatry coming to see [id number] ASSUMED CARE OF PT, REPORT RECEIVED FROM [...] after trying crutches. Normal [facility] HCGon 01-04-2017 HCG, Qual <1.[address] [facility] Comment on above: Result Comment: 0 - 3 Negative3 - 50 Inconclusive>50 Positive Performed By: #### 1 42795, 5656216, 187064, 076589, 531327, 406422 ####[facility] Tfyolimh13871 [place], [place] [id number]) [phone] Director: David Doe MD HEMOon 01-04-2017 DIFF? No Normal [facility] Comment on above: Performed By: #### 1 95978, 0614255, 273198, 743940, 381687, 694614 ####[facility] Ptdkekts71027 [place], [place] [address]) [phone] Director: David Doe MD Erythrocyte distribution width Auto Ratio (RBC) 13.3 % Normal 11.5-14.[address] [facility] Comment on above: Performed By: #### 1 59684, 3518945, 681726, 966421, 581615, 283165 ####[facility] Pthvpfnj09246 [place], [place] [id number]) [phone] Director: David Doe MD Erythrocytes (RBC) 4.80 x10 Normal 4.20-5.40 [facility] Comment on above: Result Comment: Note : RBC morphology is normal unless otherwise stated. Evaluation performed only if differential is requested. Performed By: #### 1 36774, 6019533, 333466, 204440, 749786, 521864 ####[facility] Dzigjqey19820 [place], [place] [id number]) [phone] Director: David Doe MD Hematocrit (HCT) 39.0 % Normal 36.0-46.0 [facility] Comment on above: Performed By: #### 1 67538, 3501471, 303721, 717665, 607665, 993447 ####[facility] Tefhbolb73660 [place] [address] Medical Director: David Doe MD Hemoglobin mass conc (Bld) 13.1 g/dL Normal 12.0-16.[address] [facility] Comment on above: Performed By: #### 1 97720, 5197090, 628898, 809984, 255930, 963766 ####[facility] Vsqaqwwz34981 [place] [address] Medical Director: David Doe MD MCH 27.3 pg Normal 27.0-34.[address] [facility] Comment on above: Performed By: #### 1 27815, 3377633, 497202, 727516, 248924, 358082 ####[facility] Ocdscbgs03496 [place] [address] Medical Director: David Doe MD MCHC mass conc (RBC) 33.6 g/dL Normal 32.0-37.0 [facility] Comment on above: Performed By: #### 1 54586, 6992473, 991409, 773162, 765563, 233382 ####[facility] Jfybimwt54701 [place] [address] Medical Director: David Doe MD MCV 81.3 fL Normal 80.0-100.[address] [facility] Comment on above: Performed By: #### 1 98796, 0880773, 971742, 411983, 351737, 060071 ####[facility] Haipiama87519 [place] [address] Medical Director: David Doe MD Nucleated RBC% 0 /100WC Normal [facility] Comment on above: Performed By: #### 1 10334, 4403682, 217334, 368981, 915166, 578170 ####[facility] Dhvnunau08434 [place] [address] Medical Director: David Doe MD Platelet mean volume (PMV) 9.4 fL Normal 7.4-10.[address] [facility] Comment on above: Performed By: #### 1 55921, 9483063, 477713, 730022, 833558, 702718 ####[facility] Rdsekttr40695 [place] [address] Medical Director: David Doe MD Platelets 238 x1000 Normal 150-[address] [facility] Comment on above: Performed By: #### 1 39384, 7460373, 926889, 247199, 919681, 528889 ####[facility] Ehhxawjr11874 [place] [address] Medical Director: David Doe MD WBC (Leukocytes) 9.6 10*3/uL Normal [facility] Comment on above: Performed By: #### 1 02758, 0952713, 969557, 232095, 646318, 363495 ####[facility] Vtojyltk56582 [place] [address] Medical Director: David Doe MD WBC (Leukocytes) 9.6 x10 Normal 4.5-11.0 [facility] Comment on above: Performed By: #### 1 67414, 1421647, 372565, 345276, 111484, 054316 ####[facility] Mozfjzul20994 [place] [address] Medical Director: David Doe MD PT INRon 01-04-2017 Protime Median 11.1 Second(s) Normal [facility] Comment on above: Result Comment: VERI FIED by Discern Expert. Performed By: #### 1 23782, 3044235, 123324, 698718, 276182, 233366 ####[facility] Fwxjexrk92716 [place] [address] Medical Director: David Doe MD INR Coag RelTime (PPP) 1.0 {INR} Normal So [facility] Comment on above: Result Comment: Norm al reference range for INR on patients not on anticoagulant therapy: 0.9-1.1. General therapeutic range for patients on anticoagulant therapy: 2.0-3.5. Performed By: #### 1 92224, 1151162, 215958, 520367, 081004, 351700 ####[facility] Owtvkmpm94690 [place] [address] Medical Director: David Doe MD Protime Patient 11.3 Second(s) Normal 9.8-12.7 [facility] Comment on above: Performed By: #### 1 24198, 0764140, 694052, 699246, 316946, 698454 ####[facility] Msytgkmb08888 [place] [address] Medical Director: David Doe MD XR FOOT [...] joint dislocation.Technologist: TANA ESPINOZADictated By: LAUREN RESENDIZ, Miladyed By: LAUREN RESENDIZ, Jose Alberto Out: 01/04/17 11:49:[address] [facility] Vital Signs Date Time Vital Sign Value Performing Clinician Facility 12-27-2024 10:35-0400 Body mass index (BMI) [Ratio] 42.88 kg/m2 Latasha KULKARNI Work Phone: [facility] 12-27-2024 10:35-0400 Body weight 124.19 kg Latasha KULKARNI Work Phone: [facility] 12-27-2024 10:35-0400 Diastolic blood pressure 74 mm[Hg] Latasha KULKARNI Work Phone: [facility] 12-27-2024 10:35-0400 Systolic blood pressure 122 mm[Hg] Latasha KULKARNI Work Phone: [facility] 12-13-2024 13:51-0400 Body mass index (BMI) [Ratio] 43.07 kg/m2 Aditya Billy DO Work Phone: [facility] 12-13-2024 13:51-0400 Body weight 124.74 kg Aditya Billy DO Work Phone: [facility] 12-13-2024 13:51-0400 Diastolic blood pressure 70 mm[Hg] Aditya Billy DO Work Phone: [facility] 12-13-2024 13:51-0400 Systolic blood pressure 128 mm[Hg] Aditya Billy DO Work Phone: [facility] 11-22-2024 14:29-0400 Body mass index (BMI) [Ratio] 42.57 kg/m2 Aditya Billy DO Work Phone: [facility] 11-22-2024 14:29-0400 Body weight 123.29 kg Aditya Billy DO Work Phone: [facility] 11-22-2024 14:29-0400 Diastolic blood pressure 78 mm[Hg] Aditya Billy DO Work Phone: [facility] 11-22-2024 14:29-0400 Systolic blood pressure 128 mm[Hg] Aditya Billy DO Work Phone: [facility] 10-25-2024 09:07-0400 Body mass index (BMI) [Ratio] 41.86 kg/m2 Latasha KULKARNI Work Phone: [facility] 10-25-2024 09:07-0400 Body weight 121.22 kg Latasha KULKARNI Work Phone: [facility] 10-25-2024 09:07-0400 Diastolic blood pressure 82 mm[Hg] Latasha KULKARNI Work Phone: [facility] 10-25-2024 09:07-0400 Systolic blood pressure 108 mm[Hg] Latasha KULKARNI Work Phone: [facility] 09-26-2024 10:24-0400 Body mass index (BMI) [Ratio] 41.62 kg/m2 Aditya Billy DO Work Phone: [facility] 09-26-2024 10:24-0400 Body weight 120.54 kg Aditya Billy DO Work Phone: [facility] 09-26-2024 10:24-0400 Diastolic blood pressure 76 mm[Hg] Aditya Billy DO Work Phone: [facility] 09-26-2024 10:24-0400 Systolic blood pressure 124 mm[Hg] Aditya Billy DO Work Phone: [facility] 08-29-2024 09:23-0400 Body mass index (BMI) [Ratio] 41.47 kg/m2 Aditya Billy DO Work Phone: [facility] 08-29-2024 09:23-0400 Body weight 120.11 kg Aditya Billy DO Work Phone: [facility] 08-29-2024 09:23-0400 Diastolic blood pressure 66 mm[Hg] Aditya Billy DO Work Phone: [facility] 08-29-2024 09:23-0400 Systolic blood pressure 122 mm[Hg] Aditya Billy DO Work Phone: [facility] 06-14-2024 09:05-0500 Body mass index (BMI) [Ratio] 41.16 kg/m2 Latasha KULKARNI Work Phone: [facility] 06-14-2024 09:05-0500 Body weight 119.2 kg Latasha KULKARNI Work Phone: [facility] 06-14-2024 09:05-0500 Diastolic blood pressure 74 mm[Hg] Latasha KULKARNI Work Phone: [facility] 06-14-2024 09:05-0500 Systolic blood pressure 114 mm[Hg] Latasha Tivoli PA Work Phone: [facility] 05-17-2024 08:45-0500 Body mass index (BMI) [Ratio] 41.04 kg/m2 Latasha Tivoli PA Work Phone: [facility] 05-17-2024 08:45-0500 Body weight 118.84 kg Latasha Tivoli PA Work Phone: [facility] 05-17-2024 08:45-0500 Diastolic blood pressure 70 mm[Hg] Latasha Dayron PA Work Phone: [facility] 05-17-2024 08:45-0500 Systolic blood pressure 118 mm[Hg] Latasha Dayron PA Work Phone: [facility] 04-18-2024 09:17-0500 Body mass index (BMI) [Ratio] 42.26 kg/m2 Latasha Dayron PA Work Phone: [facility] 04-18-2024 09:17-0500 Body weight 122.38 kg Latasha Tivoli PA Work Phone: [facility] 04-18-2024 09:17-0500 Diastolic blood pressure 76 mm[Hg] Latasha Tivoli PA Work Phone: [facility] 04-18-2024 09:17-0500 Systolic blood pressure 114 mm[Hg] Latasha Tivoli PA Work Phone: [facility] 02-21-2024 14:13-0400 Body mass index (BMI) [Ratio] 39.47 kg/m2 Latasha Tivoli PA Work Phone: [facility] 02-21-2024 14:13-0400 Body weight 114.31 kg Latasha Dayron PA Work Phone: [facility] 02-21-2024 14:13-0400 Diastolic blood pressure 74 mm[Hg] Latasha Dayron PA Work Phone: [facility] 02-21-2024 14:13-0400 Systolic blood pressure 118 mm[Hg] Latasha Tivoli PA Work Phone: [facility] 07-15-2023 11:50-0500 Body mass index (BMI) [Ratio] 36.65 kg/m2 Aditya Billy DO Work Phone: [facility] 07-15-2023 11:50-0500 Body weight 106.14 kg Aditya Billy DO Work Phone: [facility] 12-04-2021 10:03-0400 Body height 173.35 cm [employer] 12-04-2021 10:03-0400 Body mass index (BMI) [Ratio] 35.22 kg/m2 [employer] 12-04-2021 10:03-0400 Body surface area Derived from formula 2.26 m2 [employer] 12-04-2021 10:03-0400 Body weight 105.83 kg [employer] 12-04-2021 10:03-0400 Diastolic blood pressure 68 mm[Hg] [employer] 12-04-2021 10:03-0400 Heart rate 68 /min [employer] 12-04-2021 10:03-0400 Systolic blood pressure 116 mm[Hg] [employer] 10-15-2020 01:15-0400 Diastolic blood pressure 71 mm[Hg] Donny Andes DO Work Phone: [employer] Work Phone: 10-15-2020 01:15-0400 SaO2% (BldA) [Mass fraction] 94 % Donny Andes DO Work Phone: [employer] Work Phone: 10-15-2020 01:15-0400 Systolic blood pressure 117 mm[Hg] Donny Andes DO Work Phone: [employer] Work Phone: 10-14-2020 23:18-0400 Body temperature 97.59 [degF] Donny Andes DO Work Phone: [employer] Work Phone: 10-14-2020 23:18-0400 Heart rate 98 /min Donny Andes DO Work Phone: [employer] Work Phone: 10-14-2020 23:18-0400 Respiratory rate 18 /min Donny Andes DO Work Phone: [employer] Work Phone: 09-23-2020 08:31-0400 Body height 172.72 cm Miguel Holley CNP Work Phone: [facility] Work Phone: 09-23-2020 08:31-0400 Body mass index (BMI) [Ratio] 40.9 kg/m2 Miguel Holley CNP Work Phone: [facility] Work Phone: 09-23-2020 08:31-0400 Body surface area Derived from formula 2.32 m2 Miguel oHlley CNP Work Phone: [facility] Work Phone: 09-23-2020 08:31-0400 Body temperature 964 [degF] Miguel Holley CNP Work Phone: [facility] Work Phone: 09-23-2020 08:31-0400 Body weight 122.02 kg Miguel Holley CNP Work Phone: [facility] Work Phone: 09-23-2020 08:31-0400 Diastolic blood pressure 80 mm[Hg] Miguel Holley CNP Work Phone: [facility] Work Phone: 09-23-2020 08:31-0400 Heart rate 80 /min Miguel Holley CNP Work Phone: [facility] Work Phone: 09-23-2020 08:31-0400 Respiratory rate 18 /min Miguel Holley CNP Work Phone: [facility] Work Phone: 09-23-2020 08:31-0400 SaO2% (BldA) [Mass fraction] 98 % Miguel Holley CNP Work Phone: [facility] Work Phone: 09-23-2020 08:31-0400 Systolic blood pressure 126 mm[Hg] Miguel Holley CNP Work Phone: [facility] Work Phone: 04-08-2020 16:25-0500 Respiratory Rate 16 /min [facility] [place] 04-08-2020 16:20-0500 Pulse (Heart Rate) 86 /min [facility] 04-08-2020 16:20-0500 Pulse Oximetry 98 % [facility] [place] 04-08-2020 16:00-0500 BP Diastolic 66 mm[Hg] [facility] [place] 04-08-2020 16:00-0500 BP Systolic 121 mm[Hg] [facility] [place] 04-08-2020 13:23-0500 Body Temperature 98.4 [degF] [facility] [place] 03-19-2020 19:09-0400 BMI (Body Mass Index) 37.3 kg/m2 [facility] Work Phone: 03-19-2020 19:09-0400 Body weight 111.13 kg [facility] Work Phone: 03-19-2020 19:09-0400 BSA (Body Surface Area) 2.23 m2 [facility] Work Phone: 03-19-2020 19:09-0400 Height 172.72 cm [facility] Work Phone: 03-05-2020 08:30-0400 BMI (Body Mass Index) 37.3 kg/m2 [facility] Work Phone: 03-05-2020 08:30-0400 Body Temperature 95.4 [degF] [facility] Work Phone: 03-05-2020 08:30-0400 Body weight 111.13 kg [facility] Work Phone: 03-05-2020 08:30-0400 BP Diastolic 80 mm[Hg] [facility] Work Phone: 03-05-2020 08:30-0400 BP Systolic 120 mm[Hg] [facility] Work Phone: 03-05-2020 08:30-0400 BSA (Body Surface Area) 2.23 m2 [facility] Work Phone: 03-05-2020 08:30-0400 Height 172.72 cm [facility] Work Phone: 03-05-2020 08:30-0400 Pulse (Heart Rate) 74 /min [facility] Work Phone: 03-05-2020 08:30-0400 Pulse Oximetry 99 % [facility] Work Phone: 03-05-2020 08:30-0400 Respiratory Rate 18 /min [facility] Work Phone: 03-05-2020 08:30-0400 SaO2% (BldA) [Mass fraction] 99 % Miguel Dell [facility] Work Phone: [facility] Work Phone: 12-05-2019 08:37-0400 BMI (Body Mass Index) 35.4 kg/m2 [facility] Work Phone: 12-05-2019 08:37-0400 Body Temperature 98.8 [degF] [facility] Work Phone: 12-05-2019 08:37-0400 Body weight 105.69 kg [facility] Work Phone: 12-05-2019 08:37-0400 BP Diastolic 72 mm[Hg] [facility] Work Phone: 12-05-2019 08:37-0400 BP Systolic 116 mm[Hg] [facility] Work Phone: 12-05-2019 08:37-0400 BSA (Body Surface Area) 2.18 m2 [facility] Work Phone: 12-05-2019 08:37-0400 Flow Rate 0 L/min [facility] Work Phone: 12-05-2019 08:37-0400 Height 172.72 cm [facility] Work Phone: 12-05-2019 08:37-0400 Inhaled Oxygen Concentration 21 % [facility] Work Phone: 12-05-2019 08:37-0400 Pulse (Heart Rate) 81 /min [facility] Work Phone: 12-05-2019 08:37-0400 Pulse Oximetry 98 % [facility] Work Phone: 12-05-2019 08:37-0400 Respiratory Rate 18 /min [facility] Work Phone: 12-05-2019 08:37-0400 SaO2% (BldA) [Mass fraction] 98 % Miguelcristal Holley [facility] Work Phone: [facility] Work Phone: 11-06-2019 09:02-0400 BMI (Body Mass Index) 36.2 kg/m2 [facility] Work Phone: 11-06-2019 09:02-0400 Body Temperature 95.8 [degF] [facility] Work Phone: 11-06-2019 09:02-0400 Body weight 107.96 kg [facility] Work Phone: 11-06-2019 09:02-0400 BP Diastolic 80 mm[Hg] [facility] Work Phone: 11-06-2019 09:02-0400 BP Systolic 110 mm[Hg] [facility] Work Phone: 11-06-2019 09:02-0400 BSA (Body Surface Area) 2.2 m2 [facility] Work Phone: 11-06-2019 09:02-0400 Height 172.72 cm [facility] Work Phone: 11-06-2019 09:02-0400 Pulse (Heart Rate) 94 /min [facility] Work Phone: 11-06-2019 09:02-0400 Pulse Oximetry 98 % [facility] Work Phone: 11-06-2019 09:02-0400 Respiratory Rate 18 /min [facility] Work Phone: 11-06-2019 09:02-0400 SaO2% (BldA) [Mass fraction] 98 % Miguel Dell [facility] Work Phone: [facility] Work Phone: 10-12-2019 09:53-0400 BMI (Body Mass Index) 38.2 kg/m2 [facility] [facility] Work Phone: 10-12-2019 09:53-0400 Body Temperature 98.7 [degF] [facility] Work Phone: 10-12-2019 09:53-0400 Body weight 113.85 kg [facility] Work Phone: 10-12-2019 09:53-0400 BP Diastolic 82 mm[Hg] [facility] Work Phone: 10-12-2019 09:53-0400 BP Systolic 122 mm[Hg] [facility] Work Phone: 10-12-2019 09:53-0400 BSA (Body Surface Area) 2.25 m2 [facility] Work Phone: 10-12-2019 09:53-0400 Flow Rate 0 L/min [facility] Work Phone: 10-12-2019 09:53-0400 Height 172.72 cm [facility] Work Phone: 10-12-2019 09:53-0400 Inhaled Oxygen Concentration 21 % [facility] Work Phone: 10-12-2019 09:53-0400 Pulse (Heart Rate) 97 /min [facility] Work Phone: 10-12-2019 09:53-0400 Pulse Oximetry 98 % [facility] Work Phone: 10-12-2019 09:53-0400 Respiratory Rate 18 /min [facility] Work Phone: 10-12-2019 09:53-0400 SaO2% (BldA) [Mass fraction] 98 % [facility] Work Phone: [facility] Work Phone: 09-14-2019 08:35-0400 BMI (Body Mass Index) 37.7 kg/m2 [facility] Work Phone: 09-14-2019 08:35-0400 Body Temperature 96.6 [degF] [facility] Work Phone: 09-14-2019 08:35-0400 Body weight 112.49 kg [facility] Work Phone: 09-14-2019 08:35-0400 BP Diastolic 80 mm[Hg] [facility] Work Phone: 09-14-2019 08:35-0400 BP Systolic 130 mm[Hg] [facility] Work Phone: 09-14-2019 08:35-0400 BSA (Body Surface Area) 2.24 m2 [facility] Work Phone: 09-14-2019 08:35-0400 Height 172.72 cm [facility] Work Phone: 09-14-2019 08:35-0400 Pulse (Heart Rate) 81 /min [facility] Work Phone: 09-14-2019 08:35-0400 Pulse Oximetry 98 % [facility] Work Phone: 09-14-2019 08:35-0400 Respiratory Rate 18 /min [facility] Work Phone: 09-05-2019 10:26-0400 BMI (Body Mass Index) 37.3 kg/m2 [facility] Work Phone: 09-05-2019 10:26-0400 Body weight 111.13 kg [facility] Work Phone: 09-05-2019 10:26-0400 BSA (Body Surface Area) 2.23 m2 [facility] Work Phone: 09-05-2019 10:26-0400 Height 172.72 cm [facility] Work Phone: 08-17-2019 08:29-0400 BMI (Body Mass Index) 37.3 kg/m2 [facility] Work Phone: 08-17-2019 08:29-0400 Body Temperature 97.9 [degF] [facility] Work Phone: 08-17-2019 08:29-0400 Body weight 111.13 kg [facility] Work Phone: 08-17-2019 08:29-0400 BP Diastolic 80 mm[Hg] [facility] Work Phone: 08-17-2019 08:29-0400 BP Systolic 120 mm[Hg] [facility] Work Phone: 08-17-2019 08:29-0400 BSA (Body Surface Area) 2.23 m2 [facility] Work Phone: 08-17-2019 08:29-0400 Height 172.72 cm [facility] Work Phone: 08-17-2019 08:29-0400 Pulse (Heart Rate) 68 /min [facility] Work Phone: 08-17-2019 08:29-0400 Pulse Oximetry 98 % [facility] Work Phone: 08-17-2019 08:29-0400 Respiratory Rate 18 /min [facility] Work Phone: 07-20-2019 08:36-0500 BMI (Body Mass Index) 39 kg/m2 [facility] Work Phone: 07-20-2019 08:36-0500 Body Temperature 98.4 [degF] [facility] Work Phone: 07-20-2019 08:36-0500 Body weight 116.39 kg [facility] Work Phone: 07-20-2019 08:36-0500 BP Diastolic 80 mm[Hg] [facility] Work Phone: 07-20-2019 08:36-0500 BP Systolic 120 mm[Hg] [facility] Work Phone: 07-20-2019 08:36-0500 BSA (Body Surface Area) 2.27 m2 [facility] Work Phone: 07-20-2019 08:36-0500 Height 172.72 cm [facility] Work Phone: 07-20-2019 08:36-0500 Pulse (Heart Rate) 87 /min [facility] Work Phone: 07-20-2019 08:36-0500 Pulse Oximetry 97 % [facility] Work Phone: 07-20-2019 08:36-0500 Respiratory Rate 18 /min [facility] Work Phone: 07-06-2019 08:43-0500 BMI (Body Mass Index) 39.7 kg/m2 [facility] Work Phone: 07-06-2019 08:43-0500 Body Temperature 97.3 [degF] [facility] Work Phone: 07-06-2019 08:43-0500 Body weight 118.39 kg [facility] Work Phone: 07-06-2019 08:43-0500 BP Diastolic 82 mm[Hg] [facility] Work Phone: 07-06-2019 08:43-0500 BP Systolic 122 mm[Hg] [facility] Work Phone: 07-06-2019 08:43-0500 BSA (Body Surface Area) 2.29 m2 [facility] Work Phone: 07-06-2019 08:43-0500 Height 172.72 cm [facility] Work Phone: 07-06-2019 08:43-0500 Pulse (Heart Rate) 78 /min [facility] Work Phone: 07-06-2019 08:43-0500 Pulse Oximetry 98 % [facility] Work Phone: 07-06-2019 08:43-0500 Respiratory Rate 18 /min [facility] Work Phone: Encounters Encounter Date Encounter Type Care Provider Facility Start: 01-19-2025 End: 01-19-2025 Clinisync Result Encounter Aditya Billy DO Work Phone: [facility] Unsolicited Start: 01-19-2025 End: 01-19-2025 Clinisync Result Encounter Aditya Billy DO Work Phone: [facility] Unsolicited Start: 01-09-2025 End: 01-09-2025 Bamboo flowsheet Aditya Billy DO Work Phone: [facility] Start: 01-09-2025 End: 01-09-2025 Bamboo flowsheet Aditya Billy DO Work Phone: [facility] Start: 01-09-2025 End: 01-09-2025 Office outpatient visit 15 minutes Aditya Billy DO Work Phone: [facility] Comment on above: Third trimester preg robson ([facility]); 32 weeks gestation of ([facility]); Gestational diabetes mellitus (GDM), antepartum, gestational diabetes method of control unspecified ([facility]); Hyperglycemia during ([facility]) Start: 01-09-2025 End: 01-09-2025 ambulatory ADITYA BILLY Not Available Start: 12-27-2024 End: 12-27-2024 Bamboo flowsheet Latasha KULKARNI Work Phone: [facility] Start: 12-27-2024 End: 12-27-2024 Bamboo flowsheet Latasha KULKARNI Work Phone: [facility] Start: 12-27-2024 End: 12-27-2024 ambulatory ADITYA BILLY Not Available Start: 12-27-2024 End: 12-27-2024 Office outpatient visit 15 minutes Latasha KULKARNI Work Phone: [facility] Comment on above: Third trimester preg robson ([facility]) Start: 12-13-2024 End: 12-13-2024 ambulatory ADITYA BILLY Not Available Start: 12-13-2024 End: 12-13-2024 Office outpatient visit 15 minutes Aditya Billy DO Work Phone: [facility] Comment on above: Elevated glucose rikki erance test; History of gestational diabetes; Third trimester ([facility]); 28 weeks gestation of ([facility]); Gestational diabetes mellitus (GDM), antepartum, gestational diabetes method of control unspecified ([facility]) Start: 12-12-2024 End: 12-12-2024 [...] (Primary D x); 25 weeks gestation of ([facility]); Second trimester ([facility]); History of gestational diabetes; Diabetes [...] Department Unsolicited Start: 10-17-2024 End: 10-17-2024 ambulatory ADITYAMaame NORTONZIO [facility] Start: 10-17-2024 End: 10-17-2024 Subsequent hospital visit by physician Miguel Holley APRN - DIANELYS Work Phone: [facility] Start: 09-26-2024 End: 09-26-2024 Bamboo flowsheet Aditya Billy DO Work Phone: [facility] Start: 09-26-2024 End: 09-28-2024 Bamboo flowsheet Aditya Billy DO Work Phone: [facility] Start: 09-26-2024 End: 09-28-2024 Clinisync Result Encounter Aditya Billy DO Work Phone: [facility] External Department Unsolicited Start: 09-26-2024 End: 09-26-2024 ambulatory ADITYA BILLY Not Available Start: 09-26-2024 End: 09-26-2024 Patient encounter procedure Aditya Billy DO Work Phone: [facility] Start: 09-26-2024 End: 09-26-2024 Periodic preventive med est patient 18-39 yrs Aditya Billy DO Work Phone: [facility] Comment on above: Screening, , for anatomic survey; Well woman exam with routine gynecological exam; STD exposure; Vaginal discharge; Second trimester ; 17 weeks gestation of Start: 08-29-2024 End: 08-29-2024 Bamboo flowsheet Aditya Billy DO Work Phone: [facility] Start: 08-29-2024 End: 08-29-2024 Bamboo flowsheet Aditya Billy DO Work Phone: [facility] Start: 08-29-2024 End: 08-29-2024 Office outpatient visit 15 minutes Aditya Billy DO Work Phone: [facility] Comment on above: First trimester preg [...] Work Phone: [facility] Unsolicited Start: 06-14-2024 End: 06-14-2024 Bamboo flowsheet Latasha KULKARNI Work Phone: [facility] Start: 06-14-2024 End: 06-14-2024 Bamboo flowsheet Latasha KULKARNI Work Phone: [facility] Start: 06-14-2024 End: 06-14-2024 ambulatory LATASHA PADGETT Not Available Start: 06-14-2024 End: 06-14-2024 Office outpatient visit 15 minutes Latasha Padgett PA Work Phone: [facility] Comment on above: Encounter for weight management Start: 05-17-2024 End: 05-17-2024 Bamboo flowsheet Latasha KULKARNI Work Phone: [facility] Start: 05-17-2024 End: 05-17-2024 Bamboo flowsheet Latasha Padgett PA Work Phone: [facility] Start: 05-17-2024 End: 05-17-2024 Patient encounter procedure Latasha KULKARNI Work Phone: [facility] Comment on above: Weight gain; Encounter for weight management Start: 05-17-2024 End: 05-17-2024 ambulatory LATASHA PADGETT Not Available Start: 04-18-2024 End: 04-18-2024 Bamboo flowsheet Latasha KULKARNI Work Phone: [facility] Start: 04-18-2024 End: 04-18-2024 Bamboo flowsheet Latasha KULKARNI Work Phone: [facility] Start: 04-18-2024 End: 04-18-2024 ambulatory LATASHA PADGETT Not Available Start: 04-18-2024 End: 04-18-2024 Office outpatient visit 15 minutes Latasha KULKARNI [...] End: 01-01-2023 Patient encounter procedure Miguel Holley WARRANT SERVER - [employer] Work Phone: [facility] Start: 01-01-2023 End: 01-01-2023 Subsequent hospital visit by physician Miguel Holley APRN - [employer] Work Phone: [facility] Comment on above: Women's annual routi ne gynecological examination Start: 12-16-2021 End: 12-16-2021 Subsequent hospital visit by physician Miguel Holley APRN - [employer] Work Phone: [facility] Start: 12-04-2021 Split Srvc Shona Jenkins rne Other [facility] Office Start: 10-02-2021 End: 10-02-2021 Patient encounter procedure Miguel Holley WARRANT SERVER - [employer] Work Phone: [facility] Start: 10-02-2021 End: 10-02-2021 Subsequent hospital visit by physician Miguel Holley WARRANT SERVER - [employer] Work Phone: [facility] Comment on above: Women's annual routi ne gynecological examination Start: 10-14-2020 End: 10-15-2020 Emergency department patient visit Donny Hatfield DO Work Phone: [facility] Comment on above: Nausea vomiting and diarrhea (Primary Dx); Generalized abdominal pain Start: 09-23-2020 End: 09-24-2020 ambulatory MIGUEL HOLLEY [facility] Start: 09-23-2020 End: 09-23-2020 Subsequent hospital visit by physician Miguel Holley IOANA Stewart [employer] Work Phone: [facility] Start: 09-23-2020 End: 09-23-2020 General Jammie RODAS Work Phone: [facility] Work Phone: Start: 09-23-2020 End: 09-23-2020 Adult health examination Miguel Holley DIANELYS Work Phone: [facility] Work Phone: Start: 09-23-2020 End: 09-23-2020 FQHC visit, estab pt Miguel Holley [employer] Work Phone: [facility] Work Phone: Start: 04-08-2020 End: 04-08-2020 Emergency department patient visit [facility] ED Comment on above: COVID-19 (Primary Dx ); Fatty liver Start: 03-19-2020 End: 03-19-2020 Telemedicine consultation with patient Miguel Holley Work Phone: [facility] Work Phone: Start: 03-05-2020 End: 03-05-2020 Established patient Miguel Holley Work Phone: [facility] Work Phone: Start: 12-05-2019 End: 12-05-2019 Established patient Poly Franco Work Phone: [facility] Work Phone: Start: 11-06-2019 End: 11-06-2019 Established patient Poly Franco Work Phone: [facility] Work Phone: Start: 10-12-2019 End: 10-12-2019 Patient encounter procedure Paty Goldsmith Work Phone: [facility] Work Phone: Start: 10-12-2019 End: 10-12-2019 Established patient Poly Franco Work Phone: [facility] Work Phone: Start: 09-14-2019 End: 09-14-2019 Established patient Poly Franco Work Phone: [facility] Work Phone: Start: 09-11-2019 End: 09-11-2019 Telemedicine consultation with patient Poly Franco Work Phone: [facility] Work Phone: Start: 09-05-2019 End: 09-05-2019 Telemedicine consultation with patient Poly Franco Work Phone: [facility] Work Phone: Start: 08-17-2019 End: 09-11-2019 Telemedicine consultation with patient Poly Franco Work Phone: [facility] Work Phone: Start: 08-17-2019 End: 08-17-2019 Established patient Miguel Holley Work Phone: [facility] Work Phone: Start: 07-20-2019 End: 07-20-2019 Established patient Miguel Holley Work Phone: [facility] Work Phone: Start: 07-06-2019 End: 07-06-2019 Subsequent hospital visit by physician Jackson [facility] Start: 07-06-2019 End: 07-06-2019 Established patient Anh Virk Work Phone: [facility] Work Phone: Start: 07-06-2019 End: 07-06-2019 New patient Allyson Floyd Work Phone: [facility] Work Phone: Start: 02-02-2019 End: 02-04-2019 Subsequent hospital visit by physician [facility] Ultrasound Room [facility] Ultrasound Comment on above: Encounter for intrau terine device placement Start: 08-21-2018 End: 08-23-2018 Patient encounter procedure [facility] Start: 01-04-2017 End: 01-04-2017 Emergency department patient visit [address] [facility] Facility:[id number] Procedures Date Procedure Procedure Detail Performing Clinician Start: 01-19-2025 US OB BPP W NON-STRESS Aditya Billy DO Work Phone: Start: 01-09-2025 Urnls dip stick/tabl et rgnt [...] micrscp Aditya Billy DO Work Phone: Start: 01-01-2023 Microscopic observat ion [Identifier] in Cervix by Cyto stain Miguel Holley [employer] SERVER - [employer] Work Phone: Start: 12-16-2021 Assay of blood/uric acid Dedrick Wood PA-C Work Phone: Start: 12-16-2021 C-reactive protein Robel Wood PA-C Work Phone: Start: 12-04-2021 Nerve conduction [facility] dies 9-10 studies Shona Lucio Start: 10-02-2021 Microscopic observat ion [Identifier] in Cervix by Cyto stain Miguel Holley [employer] SERVER - [employer] Work Phone: Start: 10-15-2020 Urinalysis microscop ic only Donny And DO Work Phone: Start: 10-15-2020 Urnls dip stick/tabl et rgnt auto w/o microscopy Donny And DO Work Phone: Start: 10-15-2020 Ct abdomen & pelvis w/contrast material Donny And DO Work Phone: Start: 10-15-2020 Assay of lactate Donny Hatfield DO Work Phone: Start: 10-15-2020 BASIC METABOLIC PANE L W/ REFLEX TO MG FOR LOW K Donny Hatfield DO Work Phone: Start: 10-15-2020 Hepatic function panel Donny Hatfield DO Work Phone: Start: 09-23-2020 Most recent diastoli c blood pressure < 80 mm hg Miguel Holley [employer] Work Phone: Start: 09-23-2020 Most recent systolic blood pressure <130 mm hg Miguel Holley [facility] Work Phone: Start: 09-23-2020 Pt-focused hlth risk assmt score doc stnd instrm Miguel Holley [facility] Work Phone: Start: 09-23-2020 Antibody hiv-1&hiv-2 single result Miguel Holley [employer] Work Phone: Start: 09-23-2020 Comprehensive metabo lic panel Miguel Holley WARRANT SERVER - [facility] Work Phone: Start: 04-08-2020 Ct thorax w/contrast material Ninoska Marianne Work Phone: Start: 04-08-2020 [facility] Work [facility]: Start: 04-08-2020 Urine test visual color cmprsn meths Ninoska Marianne Work Phone: Start: 04-08-2020 Assay of troponin quantitative [place] Marianne Work Phone: Start: 04-08-2020 Blood count complete automated [place] Marianne Work Phone: Start: 04-08-2020 Comprehensive metabo lic panel [facility] Work Phone: Start: 04-08-2020 Natriuretic peptide [facility] Work Phone: Start: 04-08-2020 Prothrombin time [facility] Work Phone: Start: 04-08-2020 Thromboplastin time partial [...] Diast bp <80 mm hg Humza e [facility] Work Phone: Start: 08-17-2019 Syst bp lt 130 mm hg nury Dell Work Phone: Start: 07-06-2019 Hemoglobin glycosyla marty [...] [Identifier] in Cervix by Cyto stain Miguel Dell WARRANT SERVER - [employer] Work Phone: H/O: section S/P jose carlos [...] malign ant neoplasm of cervix Pap smear [facility] Start: 02-07-2025 End: 02-07-2025 Patient encounter procedure 02/07/2025 10:50 AM EDT Routine [facility] [address] [place] [phone] Aditya Cervantes, DO [address] [place] [address] [facility] Start: 02-06-2025 End: 02-06-2025 Patient encounter procedure 02/06/2025 10:10 AM EDT Routine [facility] [address] [facility] [place] [phone] Aditya Cervantes, DO [address] [place] [address] [facility] Start: 01-29-2025 Influenza vaccination Influenza Vacc ine (#1) [facility] Start: 01-23-2025 End: 01-23-2025 Patient encounter procedure 01/23/2025 9:50 AM EDT Routine [facility] [address] [facility] [place] [phone] Latasha Padgett PA [address] [facility] [address] [place], [place] [id number] [facility] Start: 01-10-2025 End: 01-10-2025 Patient encounter procedure 01/10/2025 1:00 PM EDT Routine [facility] [address] [facility] [place] [address] Aditya Cervantes DO [address] [facility] [address] [place], [place] [id number] [facility] Start: 01-09-2025 End: 07-12-2025 US biophysical profile w non stress test US biophysical profile w non stress test Imaging Routine Hyperglycemia during ([facility]) Expected: 01/09/2025 (Approximate), Expires: 07/12/2025 [facility] Work Phone: Comment on above: Expected: 01/09/2025 (Approximate), Expires: 07/12/2025 Start: 01-09-2025 End: 01-09-2025 Patient encounter procedure [facility] Comment on above: Arrived Start: 12-29-2024 Influenza vaccination Flu vacc ine (Season Ended) [facility] Start: 12-27-2024 End: 12-27-2024 Professional / ancillary services management [facility] Start: 12-27-2024 End: 12-27-2024 Patient encounter procedure 12/27/2024 10:20 AM EDT Routine [facility] [address] [facility] [place] [address] Latasha Padgett, PA [address] [facility] [place] [address] [facility] Start: 12-13-2024 End: 12-13-2024 Patient encounter procedure 12/13/2024 1:40 PM EDT Routine [facility] [address] [facility] [place] [phone] Aditya Cervantes DO [address] [facility] [place] [address] [facility] Start: 12-06-2024 End: 12-06-2025 Measurement of glucose 3 hours after glucose challenge for glucose tolerance test Glucose tolerance, 3 hours Lab Routine Elevated glucose tolerance test Expected: 12/06/2024 (Approximate), Expires: 12/06/2025 [facility] Work Phone: Comment on above: Expected: 12/06/2024 (Approximate), Expires: 12/06/2025 Start: 11-22-2024 End: 11-22-2025 12 lead ECG ECG 12 lead unit performed ECG Routine Dizziness Expected: 11/22/2024 (Approximate), Expires: 11/22/2025 [facility] Work Phone: Comment on above: Expected: 11/22/2024 (Approximate), Expires: 11/22/2025 Start: 11-22-2024 End: 11-22-2025 CBC panel - Blood by Automated count CBC Lab Routine Diabetes mellitus screening Expected: 11/22/2024 (Approximate), Expires: 11/22/2025 [facility] Work Phone: Comment on above: Expected: 11/22/2024 (Approximate), Expires: 11/22/2025 Start: 11-22-2024 End: 11-22-2025 Measurement of glucose 1 hour after glucose challenge for glucose tolerance test Glucose tolerance, 1 hour Lab Routine Diabetes mellitus screening Expected: 11/22/2024 (Approximate), Expires: 11/22/2025 [facility] Comment on above: Expected: 11/22/2024 (Approximate), Expires: 11/22/2025 Start: 11-22-2024 End: 11-22-2024 Patient encounter procedure 11/22/2024 1:50 PM EDT Routine [facility] [address] [place] [phone] Aditya Cervantes DO [address] [facility] [place] [address] [facility] Start: 10-25-2024 End: 10-25-2024 Patient encounter procedure 10/25/2024 9:30 AM EDT Routine [facility] [address] [facility] [place] [phone] Latasha Padgett PA [address] [facility] [address] [place], [place] [phone] [facility] Start: 10-25-2024 End: 10-25-2024 Professional / ancillary services management 10/25/2024 8:00 AM EDT Ancillary Procedure [facility] [address] [facility] [place] [phone] [facility] Start: 10-02-2024 Screening for malign ant neoplasm of cervix Pap smear [facility] Start: 09-26-2024 End: 11-26-2024 Alpha fetoprotein, [...] AM EDT Routine [facility] [address] [facility] [place] [address] Aditya Cervantes, DO [address] [place] [address] [facility] Start: 08-29-2024 End: 08-29-2024 Patient encounter procedure 08/29/2024 9:20 AM EDT Routine [facility] [address] [facility] [place] [phone] Aditya Cervantes, DO [address] [facility] [place] [address] Arrived [facility] Comment on above: Arrived Start: 08-04-2024 End: 08-04-2024 ambulatory 08/04/2024 9:00 AM EST Initial [facility] [address] [facility] [place] [phone] [facility] Start: 08-04-2024 End: 08-04-2024 Professional / ancillary services management 08/04/2024 8:30 AM EST Ancillary Procedure [facility] [address] [place] [phone] [facility] Start: 07-12-2024 End: 07-12-2024 Patient encounter procedure 07/12/2024 8:30 AM EST Office Visit [facility] [address] [facility] [phone] Latasha Padgett PA [address] [facility] [place] [address] [facility] Start: 05-17-2024 End: 05-17-2024 Patient encounter procedure [facility] Comment on above: Arrived Start: 05-10-2024 End: 05-10-2024 Patient encounter procedure 05/10/2024 8:40 AM EST Office Visit [facility] [address] [facility] [place] [phone] Latasha Padgett PA [address] [facility] [place] [address] [facility] Start: 01-30-2024 COVID-19 Vaccine ( season) COVID-19 Vaccine ( season) [facility] Start: 01-30-2024 Influenza vaccination Influenza Vacc ine (#1) [facility] Start: 08-19-2023 End: 08-19-2023 Patient encounter procedure 08/19/2023 11:00 AM EDT Routine [facility] [address] [facility] [phone] Latasha Padgett PA [address] [facility] [place] [address] [facility] Start: 08-19-2023 End: 08-19-2023 Professional / ancillary services management 08/19/2023 10:00 AM EDT Ancillary Procedure [facility] [address] [id number] [facility] Start: 01-20-2023 End: 01-20-2023 Admission to same day surgery center 01/20/2023 Surgery IP Unit Mychal Nichols MD [address] [place] [address] HYSTEROSCOPY - IUD REMOVAL [facility] OR Comment on above: HYSTEROSCOPY - IUD R EMOVAL Start: 01-20-2023 End: 01-20-2023 Hysteroscopy removal impacted foreign body HYSTEROSCOPY Intrauterine contraceptive device threads lost, initial encounter 01/20/2023 11:10 AM EDT [facility] Start: 01-20-2023 Subsequent hospital visit by physician 01/20/2023 Hospital Encounter IP Unit Mychal Nichols MD [address] [place] [address] [facility] Start: 12-29-2022 Influenza vaccination Flu vaccine (# 1) [facility] Start: 04-27-2022 End: 04-27-2022 Patient encounter procedure [facility] Part of [facility] Start: 01-29-2022 Influenza vaccination [facility] Start: 02-07-2021 Cervical cancer screen Cervical canc er screen [place], [place] Start: 02-07-2021 Screening for malign ant neoplasm of cervix [facility] Start: 01-29-2021 Influenza vaccination Flu vacc ine (Season Ended) [facility] Work Phone: Start: 09-30-2020 CBC W Auto Different ial panel - Blood [facility] Start: 09-30-2020 Lipid 1996 panel - Serum or Plasma LIPID PROFILE [facility] Start: 09-23-2020 Psychiatry [facility] Work Phone: Comment on above: Note: Please make a referral to: Start: 03-26-2020 SARS-CoV-2, KAILA [facility] Work Phone: Start: 03-19-2020 COVID Drive up Testing [facility] Work Phone: Start: 02-06-2020 Medical Establ ished Patient [facility] Work Phone: Start: 01-30-2020 Influenza vaccination Flu vaccine (# 1) [place], [place] Start: 11-09-2019 Medical Establ ished Patient [facility] Work Phone: Start: 10-11-2019 Medical Establ ished Patient [facility] Work Phone: Start: 09-14-2019 Medical Establ ished Patient [facility] Work Phone: Start: 08-17-2019 Medical Establ ished Patient [facility] Work Phone: Start: 07-20-2019 Medical Establ ished Patient [facility] Work Phone: Start: 07-13-2019 Lipid 1996 panel [facility] Work Phone: Start: 02-14-2019 End: 02-14-2019 Office Visit 02/14/2019 Office Visit Obstetrics and Gynecology Pilar MarieIOANA - CNM [address] [id number] [phone] [facility] Start: 02-07-2019 Chlamydia screen Chlamydia screen [place], [place] Start: 02-07-2019 Screening for Chlamy valentino trachomatis Chlamydia screen [facility] Start: 01-29-2019 Influenza vaccination Flu vaccine (# 1) [place], [place] Start: 10-29-2017 DTaP/Tdap/Td vaccine (2 - Td or Tdap) DTaP/Tdap/Td vaccine (2 - Td or Tdap) [facility] Start: 10-29-2017 DTaP/Tdap/Td vaccine (2 - Td) DTaP/Tdap/Td vaccine (2 - Td) [place], [place] Start: 2015 Hepatitis B vaccine (1 of 3 - 19+ 3-dose series) Hepatitis B vaccine (1 of 3 - 19+ 3-dose series) [facility] Start: 2014 Hepatitis C screening Hepatitis C sc reen [facility] Start: 2012 COVID-19 Vaccine (1) COVID-19 Vaccin e (1) [facility] Work Phone: Start: 2011 HIV screen HIV screen [place], [place] Start: 2011 HIV screening HIV screen [facility] Start: 2011 HPV vaccine (1 - Fem shiela 3-dose series) HPV vaccine (1 - Female 3-dose series) [place] Start: 2009 Varicella Vaccine (1 of 2 - 13+ 2-dose series) Varicella Vaccine (1 of 2 - 13+ 2-dose series) [facility] Start: 2008 COVID-19 Vaccine (1) COVID-19 Vaccin e (1) [facility] Work Phone: Start: 2008 Depression Screen Depression Screen [facility] Start: 2007 HPV vaccine (1 - 2-d ose series) HPV vaccine (1 - 2-dose series) [employer] Start: 2007 HPV vaccine (1 - Fem shiela 2-dose series) HPV vaccine (1 - Female 2-dose series) [employer] Phone: Start: 2001 COVID-19 Vaccine (1) COVID-19 Vaccin e (1) [employer] Start: 1997 Varicella vaccine (1 of 2 - 2-dose childhood series) Varicella vaccine (1 of 2 - 2-dose childhood series) [employer] Start: 1996 COVID-19 Vaccine (#1) COVID-19 Vacci ne (#1) [facility] [employer] Start: 1996 Hepatitis C screening Hepatitis C sc reen [employer] Phone: End: 10-17-2024 Alpha Fetoprotein, [facility]aternal [facility] [employer] Phone: Comment on above: Once for 1 Occurrenc es starting 10/17/2024 until 10/17/2024 End: 12-16-2021 GLENNY Screen with Reflex [facility] [employer] Phone: Comment on above: Once for 1 Occurrenc es starting 12/16/2021 until 12/16/2021 CHLAMYDIA TRACHOMATI S (GENITO/STI) CHLAMYDIA TRACHOMATIS (GENITO/STI) Lab Routine STD exposure Vaginal discharge Ordered: 09/26/2024 [facility] Comment on above: Ordered: 09/26/2024 Cytology Cervical or vaginal smear or scraping study Pap Smear Pathology and Cytology Routine Well woman exam with routine gynecological exam Ordered: 09/26/2024 [facility] Comment on above: Ordered: 09/26/2024 End: 10-02-2021 Cytopathology procedure, preparation of smear, genital source PAP SMEAR Lab Routine Women's annual routine gynecological examination 1 Occurrences starting 10/02/2021 until 10/02/2021 [employer] Phone: Comment on above: 1 Occurrences starti ng 10/02/2021 until 10/02/2021 End: 01-01-2023 Cytopathology procedure, preparation of smear, genital source PAP SMEAR Lab Routine Women's annual routine gynecological examination 1 Occurrences starting 01/01/2023 until 01/01/2023 [employer] Phone: Comment on above: 1 Occurrences starti ng 01/01/2023 until 01/01/2023 End: 12-16-2021 HLA-B27 Antigen [employer] Phone: Comment on above: Once for 1 Occurrenc es starting 12/16/2021 until 12/16/2021 End: 07-06-2019 Insulin, free Insulin, free Lab Routine Once for 1 Occurrences starting 07/06/2019 until 07/06/2019 [employer] Phone: Comment on above: Once for 1 Occurrenc es starting 07/06/2019 until 07/06/2019 Insulin, free Insulin, free La b Routine 07/06/2019 9:31 AM EST [employer] Phone: End: 12-16-2021 Lyme Ab [employer] Phone: Comment on above: Once for 1 Occurrenc es starting 12/16/2021 until 12/16/2021 Neisseria gonorrhoea e DNA [Presence] in Unspecified specimen by KAILA with probe detection Neisseria gonorrhea DNA probe, direct Lab Routine STD exposure Vaginal discharge Ordered: 09/26/2024 [facility] Comment on above: Ordered: 09/26/2024 SURESWAB(R) ADVANCED VAGINITIS PLUS, TMA SURESWAB(R) ADVANCED VAGINITIS PLUS, TMA Pathology and Cytology Routine STD exposure Vaginal discharge Ordered: 09/26/2024 [facility] Work Phone: Comment on above: Ordered: 09/26/2024 End: 02-13-2025 US for US OB follow up transabdominal approach Imaging Routine Elevated glucose tolerance test Gestational diabetes mellitus (GDM), antepartum, gestational diabetes method of control unspecified ([facility]) q4 weeks for 4 Occurrences starting 12/13/2024 until 02/13/2025 [facility] Comment on above: q4 weeks for 4 Occur rences starting 12/13/2024 until 02/13/2025 Immunizations Immunization Date Immunization Notes Care Provider Em de la cruz 10-30-2007 tetanus toxoid, redu katelyn diphtheria toxoid, and acellular pertussis vaccine, adsorbed Mth Room [facility] Payers Date Payer Category Payer Medicaid [id number] 2023 Medicaid [id number] 2023 Unknown [facility] [id number] 2023-Present [address] [address] [place] [address] [id number] 2022 Unknown [employer] [facility] [address] [id number] 2022-Present [address] [place] [address] [id number] 2018 Unknown [id number] [id number] 2016 Unknown [employer] [facility] [address] xxxxxxxxxxxx 2016-Present [phone] [address] [place] [address] xxxxxxxxxxxx [id number] 1996 Unknown [id number] 2.16.840.1.800046.3.579.2.175 1996 Unknown [id number] 2.16.840.1.170361.3.579.2.173 1996 Unknown [id number] 2.16.840.1.089253.3.579.2.125 9 1996 Unknown [id number] 2.16.840.1.869404.3.579.2.125 9 1996 Unknown [id number] 2.16.840.1.649787.3.579.2.125 9 1996 Unknown [id number] 2.16.840.1.028033.3.579.2.125 9 1996 Unknown [id number] 2.16.840.1.685090.3.579.2.125 9 1996 Unknown [id number] 2.16.840.1.360549.3.579.2.125 9 1996 Unknown [id number] 2.16.840.1.224608.3.579.2.125 9 1996 Unknown [id number] 2.16.840.1.134720.3.579.2.125 9 1996 Unknown [id number] 2.16.840.1.446410.3.579.2.125 9 1996 Unknown [id number] 2.16.840.1.091833.3.579.2.125 9 1996 Unknown [id number] 2.16.840.1.591122.3.579.2.125 9 1996 Unknown [id number] 2.16.840.1.465642.3.579.2.125 9 1996 Unknown [id number] 2.16.840.1.845652.3.579.2.125 9 1996 Unknown [id number] 2.16.840.1.068743.3.579.2.125 9 1996 Unknown [id number] 2.16.840.1.912708.3.579.2.125 9 Unknown [id number] [id number] Social History Date Type Detail Facility Assertion [facility] Work Phone: Assertion Emotional stress (finding) [facility] Work Phone: Tobacco smoking status Unknown if ever smoked [facility] Assertion Sexually active (finding) [facility] Work Phone: Assertion Gender identity finding (finding) [facility] Work Phone: Assertion Finding of sexua l orientation (finding) [facility] Work Phone: Start: 02-07-2018 End: 01-06-2023 Tobacco smoking status NHIS Never smoker [facility] Start: 02-07-2018 End: 01-20-2023 Alcohol intake Current drinker of alcohol (finding) [employer] Work Phone: Start: 12-12-2015 Alcohol Comment occassionally [facility] Start: 1996 Sex Assigned At Not on file [facility] Start: 04-08-2020 End: 01-06-2023 Tobacco use and exposure Never used [facility] Exposure to SARS-CoV-2 (event) Not sure [facility] Start: 02-07-2018 End: 01-20-2023 Alcohol intake Yes [facility] Assertion Family illness (situation) [facility] Work Phone: Assertion Single person (finding) [facility] Work Phone: Start: *Tobacco [facility] Pro Breath MD [facility] Start: 04-15-2023 [facility] Start: 01-20-2023 History of Social function [facility] [employer] Start: 10-12-2013 Sex Female (finding) [facility] [employer] NEGATED: Highlighted row Assertion Exposure to pollution (event) [facility] Work Phone: NEGATED: Highlighted row Assertion Tobacco user (finding) [facility] Work Phone: NEGATED: Highlighted row Assertion Current drinker of alcohol (finding) [facility] Work Phone: NEGATED: Highlighted row Assertion Finding relating to drug misuse behavior (finding) [facility] Work Phone: Mental Status Date Assessment Result Facility Cognitive function Cognitive fun ctioning was normal Cognitive function finding (finding) [facility] Work Phone: Clinical Notes 11-06-2019 to 01-09-2025 Aditya CervantesDO - 01/09/2025 11:10 AM CAYLA Bartlett - [...] Excessive growth affecting management of mother, antepartum ([facility]) 12/06/2023 Third trimester ([facility]) 12/06/2023 No Additional Past Medical History Family [...] nursing note reviewed. Exam conducted with a miller first present. Vitals: Estimated body mass index is 42.88 kg/m as calculated from the following: Height as of 01/10/24: 5' 7 . Weight as of 12/27/24: 273 lb 12.8 oz. BP: No LMP recorded. Patient is . Assessment/Plan Encounter Diagnosis: ICD-10-CM 1. Third trimester ([facility]) Z34.93 POCT urinalysis dipstick manually resulted 2. 32 weeks gestation of ([facility]) Z3A.32 3. Gestational diabetes mellitus (GDM), antepartum, gestational diabetes method of control unspecified ([facility]) O24.419 4. Hyperglycemia during ([facility]) O99.810 US biophysical profile w non stress [...] Aditya Cervantes DO documented in this encounter [facility] 12-27-2024 History of Presen t illness Narrative [...] Excessive growth affecting management of mother, antepartum ([facility]) 12/06/2023 Third trimester ([facility]) 12/06/2023 No Additional Past Medical History HISTORY [...] nursing note reviewed. Exam conducted with a miller first present. Vitals: Estimated body mass index is 42.88 kg/m as calculated from the following: Height as of 01/10/24: 5' 7 . Weight as of this encounter: 273 lb 12.8 oz. BP: 122/74 No LMP recorded. Patient is . ASSESSMENT & PLAN ICD-10-CM 1. Third trimester ([facility]) Z34.93 POCT urinalysis dipstick manually resulted Return [...] routine OB appointment. documented in this encounter [facility] 12-13-2024 History of Presen t illness Narrative [...] Excessive growth affecting management of mother, antepartum ([facility]) 12/06/2023 Third trimester ([facility]) 12/06/2023 No Additional Past Medical History HISTORY [...] of gestational diabetes Z86.32 3. Third trimester ([facility]) Z34.93 POCT urinalysis dipstick manually resulted 4. 28 weeks gestation of ([facility]) Z3A.28 POCT urinalysis dipstick manually resulted Return [...] Aditya Cervantes DO documented in this encounter [facility] 11-22-2024 History of Presen t illness Narrative [...] Excessive growth affecting management of mother, antepartum ([facility]) 12/06/2023 Third trimester ([facility]) 12/06/2023 No Additional Past Medical History HISTORY [...] PLAN ICD-10-CM 1. 25 weeks gestation of ([facility]) Z3A.25 POCT urinalysis dipstick manually resulted 2. Second trimester ([facility]) Z34.92 POCT urinalysis dipstick [...] Aditya Cervantes DO documented in this encounter [facility] 10-25-2024 History of Presen t illness Narrative [...] of: CAYLA Kwok documented in this encounter [facility] 09-26-2024 History of Presen t illness Narrative [...] nursing note reviewed. Exam conducted with a miller first present. Vitals: Estimated body mass index is [...] Aditya Cervantes DO documented in this encounter [facility] 08-29-2024 History of Presen t illness Narrative [...] nursing note reviewed. Exam conducted with a miller first present. Vitals: Estimated body mass index is [...] or undercooked meat, and stay away from [facility]. Patient has been consulted regarding any further do's and don'ts of . Patient voiced understanding and all questions and concerns were answered. Orders Placed This Encounter Procedures POCT urinalysis dipstick manually resulted Follow Up: Patient is to return in 4 weeks for routine OB appointment. Documented by Lindsey Dong LPN on behalf of: Aditya Cervantes DO documented in this encounter [facility] 06-14-2024 History of Presen t illness Narrative [...] of: CAYLA Kwok documented in this encounter [facility] 05-17-2024 History of Presen t illness Narrative [...] of CAYLA Kwok documented in this encounter [facility] 04-18-2024 History of Presen t illness Narrative [...] of: CAYLA Kwok documented in this encounter [facility] 02-21-2024 History of Presen t illness Narrative [...] of: CAYLA Kwok documented in this encounter [facility] 07-15-2023 History of Presen t illness Narrative [...] Aditya Cervantes DO documented in this encounter [facility] 09-23-2020 Evaluation note Includes: Assessments for all patient encounters Findings Anxiety disorder NOS [facility] Tele[facility] ealth with Jammie RODAS 09/23/2020 Assessment of visit for: screening for human immunodeficiency virus Medical Established Patient with Miguel oHlley [facility] 09/23/2020 Diabetes Risk Test Score was three score 09/23/2020 Medical Established Patient with Miguel Holley [facility] 09/23/2020 Morbid obesity Medical Established Patient with Miguel Holley [facility] 09/23/2020 Routine adult history and physical (18-64 yrs) without abnormal findings Medical Established Patient with Miguel Holley [facility] 09/23/2020 Z68.41 - Body mass index [BMI]40.0-44.9, adult Medical Established Patient with Miguel Holley [facility] 09/23/2020 Cough Telemedicine Establi sted Patient with Miguel Holley [facility] 03/19/2020 Exposure to a viral disease Telemedicine Establisted Patient with Miguel Holley [facility] 03/19/2020 Obesity due to excess calories Telemedic ine Establisted Patient with Miguel Holley [facility] 03/19/2020 Z68.37 - Body mass index [BM I] 37.0-37.9, adult Telemedicine Establisted Patient with Miguel Holley [facility] 03/19/2020 Obesity due to excess calories Medical E stablished Patient with Miguel Holley [facility] 03/05/2020 Z68.37 - Body mass index [BM I] 37.0-37.9, adult Medical Established Patient with Miguel Holley [facility] 03/05/2020 Obesity due to excess calories Medical E stablished Patient with Poly Wagonerle [facility] 12/05/2019 R21 - Rash and other nonspecific skin eruption Medical Established Patient with Poly Salvador [facility] 12/05/2019 Z68.35 - Body mass index (BM I) 35.0-35.9, adult Medical Established Patient with Poly Wagonerle [employer] 12/05/2019 Obesity due to excess calories Medical E stablished Patient with Poly Salvador [facility] 11/06/2019 Z68.36 - Body mass index (BM I) 36.0-36.9, adult Medical Established Patient with Poly Salvador [employer] 11/06/2019 Obesity due to excess calories Medical E stablished Patient with Poly Salvador [facility] 10/12/2019 Z68.38 - Body mass index (BM I) 38.0-38.9, adult Medical Established Patient with Poly Salvador [facility] 10/12/2019 L25.5 - Unspecified contact dermatitis due to plants, except food Medical Established Patient with Poly Salvador [employer] 09/14/2019 Obesity due to excess calories Medical E stablished Patient with Poly Salvador [facility] 09/14/2019 Z68.37 - Body mass index (BM I) 37.0-37.9, adult Medical Established Patient with Poly Salvador [facility] 09/14/2019 L25.5 - Unspecified contact dermatitis due to plants, except food Telemedicine with Poly Wagonerle [facility] 09/11/2019 Obesity due to excess calories Telemedic ine with Poly Wagonerle [facility] 09/11/2019 Z68.37 - Body mass index (BM I) 37.0-37.9, adult Telemedicine with Poly Franco [employer] 09/11/2019 Dermatitis due to contact wi th poison spencer Telemedicine with Poly Franco [employer] 09/05/2019 Obesity due to excess calories Telemedic ine with Poly Franco [employer] 09/05/2019 Z68.37 - Body mass index (BM I) 37.0-37.9, adult Telemedicine with Poly Franco [employer] 09/05/2019 Obesity due to excess calories Medical E stablished Patient with Miguel Holley [employer] 08/17/2019 Z68.37 - Body mass index (BM I) 37.0-37.9, adult Medical Established Patient with Miguel Holley [employer] 08/17/2019 Generalized anxiety disorder BH Establis hed Patient with Anh VIDAL 07/06/2019 Anxiety disorder NOS Medical New Patient with Allyson Floyd [employer] 07/06/2019 Depression Medical New Patient with Allyson Floyd [employer] 07/06/2019 Diabetes Risk Test Score was one score Medical New Patient with Allyson Floyd [employer] 07/06/2019 Idiopathic insomnia Medical New Patient with Allyson Floyd [employer] 07/06/2019 Obesity due to excess calories Medical N ew Patient with Allyson Everett [employer] 07/06/2019 Z68.39 - Body mass index (BM I) 39.0-39.9 adult Medical New Patient with Allyson Floyd CNP 07/06/2019 [facility] Work Phone: 1(345) 702-916506-08-2020 History general Narrative - Reported Includes: Medical History in patient's chart Description Last Updated Not currently nursing 11/06/2019 Not 11/06/2019 No reported medical history or no signif icant history 07/06/2019 [facility] Work Phone: Evaluation note Includes: Assessments for all patient encounters Findings Encounter Date Assessment of visit for: cristóbal montoya for human immunodeficiency virus Medical Established Patient with Miguel Holley [employer] 09/23/2020 Diabetes Risk Test Score was three score 09/23/2020 Medical Established Patient with Miguel Holley [employer] 09/23/2020 Morbid obesity Medical Established Patient with Miguel Holley [employer] 09/23/2020 Routine adult history and ph ysical (18-64 yrs) without abnormal findings Medical Established Patient with Miguel Holley CNP 09/23/2020 Z68.41 - Body mass index [BMI]40.0-44.9, adult Medical Established Patient with Miguel Holley [employer] 09/23/2020 Cough Telemedicine Establi sted Patient with Miguel Holley [facility] 03/19/2020 Exposure to a viral disease Telemedicine Establisted Patient with Miguel Holley [employer] 03/19/2020 Obesity due to excess calories Telemedic ine Establisted Patient with Miguel Holley [facility] 03/19/2020 Z68.37 - Body mass index [BM I] 37.0-37.9, adult Telemedicine Establisted Patient with Miguel Holley [employer] 03/19/2020 Obesity due to excess calories Medical E stablished Patient with Miguel Holley [employer] 03/05/2020 Z68.37 - Body mass index [BM I] 37.0-37.9, adult Medical Established Patient with Miguel Holley [employer] 03/05/2020 Obesity due to excess calories Medical E stablished Patient with Poly Wagonerle [employer] 12/05/2019 R21 - Rash and other nonspec ific skin eruption Medical Established Patient with Poly Salvador [employer] 12/05/2019 Z68.35 - Body mass index (BM I) 35.0-35.9, adult Medical Established Patient with Poly Salvador [employer] 12/05/2019 Obesity due to excess calories Medical E stablished Patient with Poly Salvador [employer] 11/06/2019 Z68.36 - Body mass index (BM I) 36.0-36.9, adult Medical Established Patient with Poly Salvador [employer] 11/06/2019 Obesity due to excess calories Medical E stablished Patient with Poly Salvador [employer] 10/12/2019 Z68.38 - Body mass index (BM I) 38.0-38.9, adult Medical Established Patient with Poly Salvador [employer] 10/12/2019 L25.5 - Unspecified contact dermatitis due to plants, except food Medical Established Patient with Poly Salvador [employer] 09/14/2019 Obesity due to excess calories Medical E stablished Patient with Poly Salvador [employer] 09/14/2019 Z68.37 - Body mass index (BM I) 37.0-37.9, adult Medical Established Patient with Poly Salvador [employer] 09/14/2019 L25.5 - Unspecified contact dermatitis due to plants, except food Telemedicine with Poly Salvador [employer] 09/11/2019 Obesity due to excess calories Telemedicine with Poly Franco [facility] 09/11/2019 Z68.37 - Body mass index (BM I) 37.0-37.9, adult Telemedicine with Poly Franco [facility] 09/11/2019 Dermatitis due to contact wi th poison spencer Telemedicine with Poly Franco [facility] 09/05/2019 Obesity due to excess calories Telemedicine with Poly Franco [facility] 09/05/2019 Z68.37 - Body mass index (BM I) 37.0-37.9, adult Telemedicine with Poly Franco [employer] 09/05/2019 Obesity due to excess calories Medical E stablished Patient with Miguel Holley [facility] 08/17/2019 Z68.37 - Body mass index (BM I) 37.0-37.9, adult Medical Established Patient with Miguel Holley [facility] 08/17/2019 Generalized anxiety disorder BH Establis hed Patient with Anh FERNANDEZS 07/06/2019 Anxiety disorder NOS Medical New Patient with Allyson Floyd HANGING [employer]S DECORATOR 07/06/2019 Depression Medical New Patient with Allyson lFoyd HANGING FLAGS DECORATOR 07/06/2019 Diabetes Risk Test Score was one score M edical New Patient with Allyson Everett [employer]ANGING [employer]S DECORATOR 07/06/2019 Idiopathic insomnia Medical New Patient with Allyson Floyd HANGING FLAGS DECORATOR 07/06/2019 Obesity due to excess calories Medical N ew Patient with Allyson Everett HANGING FLAGS DECORATOR 07/06/2019 Z68.39 - Body mass index (BM I) 39.0-39.9 adult Medical New Patient with Allyson Floyd HANGING FLAGS DECORATOR 07/06/2019 [facility] Work Phone: Evaluation note* Diagnosis Nausea vomiting and diarrhea- Primary Nausea with vomiting Generalized abdominal pain Abdominal pain, generalized documented in this encounter [employer] Phone: evaluation note* Diagnosis Women's annual routine gynecological examination documented in this encounter [employer] Phone: evaluation note* Diagnosis Women's annual routine gynecological examination Intrauterine contraceptive device threads lost, initial encounter documented in this encounter [employer] HEALTHEvaluation note* Diagnosis Second trimester state, incidental [...] (HHS-HCC) state, incidental 28 weeks gestation of (HHS-HCC) Gestational diabetes mellitus (GDM), antepartum, gestational diabetes method of control unspecified (HHS-HCC) [facility] Diagnosis Third trimester (HHS-HCC) state, incidental [facility] encounter [facility] Diagnosis Third trimester (HHS-HCC) state, incidental 32 weeks gestation of (HHS-HCC) Gestational diabetes mellitus (GDM), antepartum, gestational diabetes method of control unspecified (HHS-HCC) Hyperglycemia during (HHS-HCC) documented [facility] this encounter [facility] Present illness Narrative History of Present Illness not supported for this document type No History of Present Illness [facility] Work Phone: Hospital Discharge instructions* Attachments The following attachments cannot be sent through Care Everywhere. * Abdominal Pain (Yemeni) * Nausea and Vomiting (Yemeni) * Diarrhea ([place]) [facility] Instructions Instructions not supported for this document type No Instructions [email or web address] Work Phone: Patient problem outcome Narrative Includes: Evaluations & Outcomes for active Goals No Outcomes [facility] Work Phone: Reason for referral (narrative)No Reason for Referral [facility] Work Phone: Review of systems Narrative - Reported Review of Systems not supported for this document type No Review of Systems [facility] Work Phone: Summary Purpose Family History Description Last Updated Maternal history of rheumatoid arthritis 07/06/2019 Maternal history of rheumatologic disord er Fibromyalgia 07/06/2019 Maternal history of systemic lupus eryth ematosus 07/06/2019 Paternal history of type 1 diabetes marino itus 07/06/2019 Advance Directives Documents on File Type Date Recorded Patient Supervisor Belt And Link Assembly Expl anation Advance Directives and Living Will Power of Sales Commissions Analyst Documents on File Type Date Recorded Patient Supervisor Belt And Link Assembly Expl anation ACP-Advance Directive ACP-Power of Sales Commissions Analyst Documents on File Type Date Recorded Patient Supervisor Belt And Link Assembly Expl anation Advance Directives and Living Will Power of Sales Commissions Analyst Date Activated Date Inactivated Comments 01/20/2023 7:21 [...] NOS Medical New Patient with Allyson Floyd HANGING FLAGS DECORATOR 07/06/2019 Depression Medical New Patient with Allyson Floyd HANGING FLAGS DECORATOR 07/06/2019 Diabetes Risk Test Score was one score Medical New Patient with Allyson Floyd HANGING FLAGS DECORATOR 07/06/2019 Idiopathic insomnia Medical New Patient with Allyson Floyd HANGING FLAGS DECORATOR 07/06/2019 Obesity due to excess calories Medical N ew Patient with Allyson Floyd HANGING FLAGS DECORATOR 07/06/2019 Z68.39 - Body mass index (BM I) 39.0-39.9 adult Medical New Patient with Allyson Floyd HANGING FLAGS DECORATOR 07/06/2019 Findings Encounter Date Obesity due to excess calories Medical E stablished Patient with Poly Franco HANGING FLAGS DECORATOR 10/12/2019 Z68.38 - Body mass index (BM I) 38.0-38.9, adult Medical Established Patient with Poly Franco [facility] 10/12/2019 L25.5 - Unspecified contact dermatitis due to plants, except food Medical Established Patient with Poly Franco HANGING FLAGS DECORATOR 09/14/2019 Obesity due to excess calories Medical E stablished Patient with Poly Franco [facility] 09/14/2019 Z68.37 - Body mass index (BM I) 37.0-37.9, adult Medical Established Patient with Poly Franco [facility] 09/14/2019 L25.5 - Unspecified contact dermatitis due to plants, except food Telemedicine with Poly Franco [facility] 09/11/2019 Obesity due to excess calories Telemedicine with Poly Frnaco [facility] 09/11/2019 Z68.37 - Body mass index (BM I) 37.0-37.9, adult [facility] Dermatitis due to contact wi th poison spencer Telemedicine with Poly Franco [facility] 09/05/2019 Obesity due to excess calories Telemedicine with Poly Franco [facility] 09/05/2019 Z68.37 - Body mass index (BM I) 37.0-37.9, adult Telemedicine with Poly Franco [facility] 09/05/2019 Obesity due to excess calories Medical E stablished Patient with Miguel Holley [facility] 08/17/2019 Z68.37 - Body mass index (BM I) 37.0-37.9, adult Medical Established Patient with Miguel Holley [facility] 08/17/2019 Generalized anxiety disorder BH Establis hed Patient with Anh VIDAL 07/06/2019 Anxiety disorder NOS Medical New Patient with Allyson Floyd HANGING FLAGS DECORATOR 07/06/2019 Depression Medical New Patient with Allyson Floyd HANGING FLAGS DECORATOR 07/06/2019 Diabetes Risk Test Score was one score Medical New Patient with Allyson Floyd HANGING FLAGS DECORATOR 07/06/2019 Idiopathic insomnia Medical New Patient with Allyson Floyd HANGING FLAGS DECORATOR 07/06/2019 Obesity due to excess calories Medical N ew Patient with Allyson Floyd HANGING FLAGS DECORATOR 07/06/2019 Z68.39 - Body mass index (BM I) 39.0-39.9 adult Medical New Patient with Allyson Floyd HANGING FLAGS DECORATOR 07/06/2019 Findings Encounter Date Obesity due to excess calories Medical E stablished Patient with Miguelcristal Holley HANGING FLAGS DECORATOR 08/17/2019 Z68.37 - Body mass index (BM I) 37.0-37.9, adult Medical Established Patient with Miguel Holley HANGING [employer]S DECORATOR 08/17/2019 Generalized anxiety disorder BH Establis hed Patient with Anh Virk ASSISTANT CENTER DIRECTOR-S 07/06/2019 Anxiety disorder NOS Medical New Patient with Allyson Everett HANGING FLAGS DECORATOR 07/06/2019 Depression Medical New Patient with Allyson Floyd HANGING FLAGS DECORATOR 07/06/2019 Diabetes Risk Test Score was one score Medical New Patient with Allyson Floyd HANGING FLAGS DECORATOR 07/06/2019 Idiopathic insomnia Medical New Patient with Allyson Floyd HANGING FLAGS DECORATOR 07/06/2019 Obesity due to excess calories Medical N ew Patient with Allyson Nye HANGING FLAGS DECORATOR 07/06/2019 Z68.39 - Body mass index (BM I) 39.0-39.9 adult Medical New Patient with Allyson Floyd HANGING FLAGS DECORATOR 07/06/2019 Findings Encounter Date Dermatitis due to contact wi th poison spencer Telemedicine with Poly Franco [facility] 09/05/2019 Obesity due to excess calories Telemedicine with Poly Franco [facility] 09/05/2019 Z68.37 - Body mass index (BM I) 37.0-37.9, adult Telemedicine with Poly Franco [facility] 09/05/2019 Obesity due to excess calories Medical E stablished Patient with Miguel Holley HANGING [employer]S DECORATOR 08/17/2019 Z68.37 - Body mass index (BM I) 37.0-37.9, adult Medical Established Patient with Miguelcristal Holley HANGING FLAGS DECORATOR 08/17/2019 Generalized anxiety disorder BH Establis hed Patient with Anh Virk ASSISTANT CENTER DIRECTOR-S 07/06/2019 Anxiety disorder NOS Medical New Patient with Allyson Floyd HANGING FLAGS DECORATOR 07/06/2019 Depression Medical New Patient with Allyson Everett HANGING FLAGS DECORATOR 07/06/2019 Diabetes Risk Test Score was one score Medical New Patient with Allyson Everett HANGING FLAGS DECORATOR 07/06/2019 Idiopathic insomnia Medical New Patient with Allyson Everett HANGING FLAGS DECORATOR 07/06/2019 Obesity due to excess calories Medical N ew Patient with Allyson Floyd HANGING FLAGS DECORATOR 07/06/2019 Z68.39 - Body mass index (BM I) 39.0-39.9 adult Medical New Patient with Allyson Floyd [facility] 07/06/2019 Findings Encounter Date L25.5 - Unspecified contact dermatitis due to plants, except food Telemedicine with Poly Franco [facility] 09/11/2019 Obesity due to excess calories Telemedicine with Poly Franco [facility] 09/11/2019 Z68.37 - Body mass index (BM I) 37.0-37.9, adult Telemedicine with Poly Franco [facility] 09/11/2019 Dermatitis due to contact wi th poison spencer Telemedicine with Poly Franco [facility] 09/05/2019 Obesity due to excess calories Telemedicine with Poly [facility] 09/05/2019 Z68.37 - Body mass index (BM I) 37.0-37.9, adult Telemedicine with Poly Franco [facility] 09/05/2019 Obesity due to excess calories Medical E stablished Patient with Miguel Holley [facility] 08/17/2019 Z68.37 - Body mass index (BM I) 37.0-37.9, adult Medical Established Patient with Miguel Holley [facility] 08/17/2019 Generalized anxiety disorder BH Establis hed Patient with Anh VIDAL 07/06/2019 Anxiety disorder NOS Medical New Patient with Allyson Floyd [facility] 07/06/2019 Depression Medical New Patient with Allyson Floyd [facility] 07/06/2019 Diabetes Risk Test Score was one score Medical New Patient with Allyson Floyd [facility] 07/06/2019 Idiopathic insomnia Medical New Patient with Allyson Floyd [facility] 07/06/2019 Obesity due to excess calories Medical N ew Patient with Allyson Floyd [facility] 07/06/2019 Z68.39 - Body mass index (BM I) 39.0-39.9 adult Medical New Patient with Allyson Floyd [facility] 07/06/2019 Findings Encounter Date L25.5 - Unspecified contact dermatitis due to plants, except food Medical Established Patient with Poly Franco [facility] 09/14/2019 Obesity due to excess calories Medical E stablished Patient with Poly Franco [facility] 09/14/2019 Z68.37 - Body mass index (BM I) 37.0-37.9, adult Medical Established Patient with Poly Franco [facility] 09/14/2019 L25.5 - Unspecified contact dermatitis due to plants, except food Telemedicine with Poly Franco [facility] 09/11/2019 Obesity due to excess calories Telemedicine with Poly Franco [facility] 09/11/2019 Z68.37 - Body mass index (BM I) 37.0-37.9, adult Telemedicine with Poly Franco [facility] 09/11/2019 Dermatitis due to contact wi th poison spencer Telemedicine with Poly Franco [facility] 09/05/2019 Obesity due to excess calories [facility] 09/05/2019 Z68.37 - Body mass index (BM I) 37.0-37.9, adult Telemedicine with Poly Franco [facility] 09/05/2019 Obesity due to excess calories Medical E stablished Patient with Miguel Holley [facility] 08/17/2019 Z68.37 - Body mass index (BM I) 37.0-37.9, adult Medical Established Patient with Miguel Holley [facility] 08/17/2019 Generalized anxiety disorder BH Establis hed Patient with Anh VIDAL 07/06/2019 Anxiety disorder NOS Medical New Patient with Allyson Everett [facility] 07/06/2019 Depression Medical New Patient with Allyson Rockford [facility] 07/06/2019 Diabetes Risk Test Score was one score Medical New Patient with Allyson Rockford HANGING FLAGS DECORATOR 07/06/2019 Idiopathic insomnia Medical New Patient with Allyson Everett HANGING FLAGS DECORATOR 07/06/2019 Obesity due to excess calories Medical N ew Patient with Allyson Rockford [facility] 07/06/2019 Z68.39 - Body mass index (BM I) 39.0-39.9 adult Medical New Patient with Allyson Nye [facility] 07/06/2019 Findings Encounter Date Obesity due to excess calories Medical E stablished Patient with Poly Franco [facility] 11/06/2019 Z68.36 - Body mass index (BM I) 36.0-36.9, adult Medical Established Patient with Poly Franco HANGING FLAGS DECORATOR 11/06/2019 Obesity due to excess calories Medical E stablished Patient with Poly Wagonerle [facility] 10/12/2019 Z68.38 - Body mass index (BM I) 38.0-38.9, adult Medical Established Patient with Poly Franco [facility] 10/12/2019 L25.5 - Unspecified contact dermatitis due to plants, except food Medical Established Patient with Poly Franco [employer]ANGING FLAGS DECORATOR 09/14/2019 Obesity due to excess calories Medical E stablished Patient with Poly Franco [facility] 09/14/2019 Z68.37 - Body mass index (BM I) 37.0-37.9, adult Medical Established Patient with Poly Franco [facility] 09/14/2019 L25.5 - Unspecified contact dermatitis due to plants, except food Telemedicine with Poly Franco [facility] 09/11/2019 Obesity due to excess calories Telemedicine with Poly Franco [facility] 09/11/2019 Z68.37 - Body mass index (BM I) 37.0-37.9, adult Telemedicine with Poly Franco [facility] 09/11/2019 Dermatitis due to contact wi th poison spencer Telemedicine with Poly Franco [facility] 09/05/2019 Obesity due to excess calories Telemedicine with Poly Franco [facility] 09/05/2019 Z68.37 - Body mass index (BM I) 37.0-37.9, adult Telemedicine with Poly Franco [facility] 09/05/2019 Obesity due to excess calories Medical E stablished Patient with Miguel Holley [facility] 08/17/2019 Z68.37 - Body mass index (BM I) 37.0-37.9, adult Medical Established Patient with Miguel Holley [facility] 08/17/2019 Generalized anxiety disorder BH Establis hed Patient with Anh VIDAL 07/06/2019 Anxiety disorder NOS Medical New Patient with Allyson Floyd [facility] 07/06/2019 Depression Medical New Patient with Allyson Rockford [facility] 07/06/2019 Diabetes Risk Test Score was one score Medical New Patient with Allyson [place]ford HANGING FLAGS DECORATOR 07/06/2019 Idiopathic insomnia Medical New Patient with Allyson Rockford HANGING FLAGS DECORATOR 07/06/2019 Obesity due to excess calories Medical N ew Patient with Allyson Rockford HANGING FLAGS DECORATOR 07/06/2019 Z68.39 - Body mass index (BM I) 39.0-39.9 adult Medical New Patient with Allyson Everett HANGING FLAGS DECORATOR 07/06/2019 Findings Encounter Date Obesity due to excess calories Medical E stablished Patient with Poly Franco HANGING FLAGS DECORATOR 12/05/2019 R21 - Rash and other nonspec ific skin eruption Medical Established Patient with Poly Franco HANGING FLAGS DECORATOR 12/05/2019 Z68.35 - Body mass index (BM I) 35.0-35.9, adult Medical Established Patient with Poly Franco HANGING FLAGS DECORATOR 12/05/2019 Obesity due to excess calories Medical E stablished Patient with Poly Wagonerle HANGING FLAGS DECORATOR 11/06/2019 Z68.36 - Body mass index (BM I) 36.0-36.9, adult Medical Established Patient with Poly Wagonerle HANGING FLAGS DECORATOR 11/06/2019 Obesity due to excess calories Medical E stablished Patient with Poly Wagonerle HANGING FLAGS DECORATOR 10/12/2019 Z68.38 - Body mass index (BM I) 38.0-38.9, adult Medical Established Patient with Polykamryn Wagonerle HANGING FLAGS DECORATOR 10/12/2019 L25.5 - Unspecified contact dermatitis due to plants, except food Medical Established Patient with Poly Wagonerle HANGING FLAGS DECORATOR 09/14/2019 Obesity due to excess calories Medical E stablished Patient with Poly Salvador [facility] 09/14/2019 Z68.37 - Body mass index (BM I) 37.0-37.9, adult Medical Established Patient with Poly Franco [facility] 09/14/2019 L25.5 - Unspecified contact dermatitis due to plants, except food Telemedicine with Poly Franco [facility] 09/11/2019 Obesity due to excess calories Telemedicine with Poly Wagonerle [facility] 09/11/2019 Z68.37 - Body mass index (BM I) 37.0-37.9, adult [facility] Dermatitis due to contact wi th poison spencer Telemedicine with Poly Franco [facility] 09/05/2019 Obesity due to excess calories Telemedicine with Poly Wagonerle [facility] 09/05/2019 Z68.37 - Body mass index (BM I) 37.0-37.9, adult Telemedicine with Poly Franco [facility] 09/05/2019 Obesity due to excess calories Medical E stablished Patient with Miguel Holley [facility] 08/17/2019 Z68.37 - Body mass index (BM I) 37.0-37.9, adult Medical Established Patient with Miguel Holley [facility] 08/17/2019 Generalized anxiety disorder BH Establis hed Patient with Anh VIDAL 07/06/2019 Anxiety disorder NOS Medical New Patient with Allyson Floyd HANGING FLAGS DECORATOR 07/06/2019 Depression Medical New Patient with Allyson Rockford HANGING FLAGS DECORATOR 07/06/2019 Diabetes Risk Test Score was one score Medical New Patient with Allyson Everett HANGING FLAGS DECORATOR 07/06/2019 Idiopathic insomnia Medical New Patient with Allyson Floyd HANGING FLAGS DECORATOR 07/06/2019 Obesity due to excess calories Medical N ew Patient with Allyson Floyd HANGING FLAGS DECORATOR 07/06/2019 Z68.39 - Body mass index (BM I) 39.0-39.9 adult Medical New Patient with Allyson Floyd HANGING FLAGS DECORATOR 07/06/2019 Findings Encounter Date Obesity due to excess calories Medical E stablished Patient with Miguel Holley HANGING FLAGS DECORATOR 03/05/2020 Z68.37 - Body mass index [BM I] 37.0-37.9, adult Medical Established Patient with Miguel Holley HANGING FLAGS DECORATOR 03/05/2020 Obesity due to excess calories Medical E stablished Patient with Poly Franco HANGING FLAGS DECORATOR 12/05/2019 R21 - Rash and other nonspec [facility] Established Patient with Poly Wagonerle HANGING FLAGS DECORATOR 12/05/2019 Z68.35 - Body mass index (BM I) 35.0-35.9, adult Medical Established Patient with Poly Franco HANGING FLAGS DECORATOR 12/05/2019 Obesity due to excess calories Medical E stablished Patient with Poly Salvador HANGING FLAGS DECORATOR 11/06/2019 Z68.36 - Body mass index (BM I) 36.0-36.9, adult Medical Established Patient with Polykamryn Wagonerle HANGING FLAGS DECORATOR 11/06/2019 Obesity due to excess calories Medical E stablished Patient with Poly Salvador HANGING FLAGS DECORATOR 10/12/2019 Z68.38 - Body mass index (BM I) 38.0-38.9, adult Medical Established Patient with Polykamryn Wagonerle HANGING FLAGS DECORATOR 10/12/2019 L25.5 - Unspecified contact dermatitis due to plants, except food Medical Established Patient with Polykamryn Wagonerle HANGING FLAGS DECORATOR 09/14/2019 Obesity due to excess calories Medical E stablished Patient with Poly Salvador HANGING FLAGS DECORATOR 09/14/2019 Z68.37 - Body mass index (BM I) 37.0-37.9, adult Medical Established Patient with Poly Salvador HANGING FLAGS DECORATOR 09/14/2019 L25.5 - Unspecified contact dermatitis due to plants, except food Telemedicine with Poly Wagonerle HANGING FLAGS DECORATOR 09/11/2019 Obesity due to excess calories Telemedicine with Poly Wagonerle HANGING FLAGS DECORATOR 09/11/2019 Z68.37 - Body mass index (BM I) 37.0-37.9, adult Telemedicine with Poly Franco HANGING FLAGS DECORATOR 09/11/2019 Dermatitis due to contact wi th poison spencer Telemedicine with Poly Franco [facility] 09/05/2019 Obesity due to excess calories Telemedicine with Poly Franco [facility] 09/05/2019 Z68.37 - Body mass index (BM I) 37.0-37.9, adult Telemedicine with Poly Franco HANGING FLAGS DECORATOR 09/05/2019 Obesity due to excess calories Medical E stablished Patient with Miguel Holley [facility] 08/17/2019 Z68.37 - Body mass index (BM I) 37.0-37.9, adult Medical Established Patient with Miguel Holley HANGING FLAGS DECORATOR 08/17/2019 Generalized anxiety disorder BH Establis hed Patient with Anh VIDAL 07/06/2019 Anxiety disorder NOS Medical New Patient with Allyson Nye HANGING FLAGS DECORATOR 07/06/2019 Depression Medical New Patient with Allyson Nye HANGING FLAGS DECORATOR 07/06/2019 Diabetes Risk Test Score was one score Medical New Patient with Allyson [place]ford HANGING FLAGS DECORATOR 07/06/2019 Idiopathic insomnia Medical New Patient with Allyson Nye HANGING FLAGS DECORATOR 07/06/2019 Obesity due to excess calories Medical N ew Patient with Allyson [place] HANGING FLAGS DECORATOR 07/06/2019 Z68.39 - Body mass index (BM I) 39.0-39.9 adult Medical New Patient with Allysonheidi Floyd HANGING FLAGS DECORATOR 07/06/2019 Findings Encounter Date Cough Telemedicine Establi sted Patient with Miguel Holley [facility] 03/19/2020 Exposure to a viral disease Telemedicine Establisted Patient with Miguel Holley [facility] 03/19/2020 Obesity due to excess calories Telemedic ine Establisted Patient with Miguel Holley [facility] 03/19/2020 Z68.37 - Body mass index [BM I] 37.0-37.9, adult Telemedicine Establisted Patient with Miguel Holley [facility] 03/19/2020 Obesity due to excess calories Medical E stablished Patient with Miguel Holley [facility] 03/05/2020 Z68.37 - Body mass index [BM I] 37.0-37.9, adult Medical Established Patient with Miguel Holley [facility] 03/05/2020 Obesity due to excess calories Medical E stablished Patient with Poly Franco HANGING FLAGS DECORATOR 12/05/2019 R21 - Rash and other nonspec ific skin eruption Medical Established Patient with Poly Franco [facility] 12/05/2019 Z68.35 - Body mass index (BM I) 35.0-35.9, adult Medical Established Patient with Poly Franco HANGING FLAGS DECORATOR 12/05/2019 Obesity due to excess calories Medical E stablished Patient with Poly Wagonerle HANGING FLAGS DECORATOR 11/06/2019 Z68.36 - Body mass index (BM I) 36.0-36.9, adult Medical Established Patient with Poly Wagonerle HANGING FLAGS DECORATOR 11/06/2019 Obesity due to excess calories Medical E stablished Patient with Polykamryn Wagonerle HANGING FLAGS DECORATOR 10/12/2019 Z68.38 - Body mass index (BM I) 38.0-38.9, adult Medical Established Patient with Poly Salvador HANGING FLAGS DECORATOR 10/12/2019 L25.5 - Unspecified contact dermatitis due to plants, except food Medical Established Patient with Poly Wagonerle HANGING FLAGS DECORATOR 09/14/2019 Obesity due to excess calories Medical E stablished Patient with Poly Salvador [facility] 09/14/2019 Z68.37 - Body mass index (BM I) 37.0-37.9, adult Medical Established Patient with Poly Wagonerle HANGING FLAGS DECORATOR 09/14/2019 L25.5 - Unspecified contact dermatitis due to plants, except food Telemedicine with Poly Franco [facility] 09/11/2019 Obesity due to excess calories Telemedicine with Poly Wagonerle [facility] 09/11/2019 Z68.37 - Body mass index (BM I) 37.0-37.9, adult Telemedicine with Poly Wagonerle [facility] 09/11/2019 Dermatitis due to contact wi th poison spencer Telemedicine with Poly Franco [facility] 09/05/2019 Obesity due to excess calories Telemedicine with Poly Wagonerle [facility] 09/05/2019 Z68.37 - Body mass index (BM I) 37.0-37.9, adult Telemedicine with Poly Wagonerle [facility] 09/05/2019 Obesity due to excess calories Medical E stablished Patient with Miguel Holley [facility] 08/17/2019 Z68.37 - Body mass index (BM I) 37.0-37.9, adult Medical Established Patient with Miguel Holley [facility] 08/17/2019 Generalized anxiety disorder BH Establis hed Patient with Anh VIDAL 07/06/2019 Anxiety disorder NOS Medical New Patient with Allyson Floyd HANGING FLAGS DECORATOR 07/06/2019 Depression Medical New Patient with Allyson Everett HANGING FLAGS DECORATOR 07/06/2019 Diabetes Risk Test Score was one score Medical New Patient with Allyson Rockford HANGING FLAGS DECORATOR 07/06/2019 Idiopathic insomnia Medical New Patient with Allyson Floyd HANGING FLAGS DECORATOR 07/06/2019 Obesity due to excess calories Medical N ew Patient with Allyson Floyd HANGING FLAGS DECORATOR 07/06/2019 Z68.39 - Body mass index (BM I) 39.0-39.9 adult Medical New Patient with Allyson Floyd HANGING FLAGS DECORATOR 07/06/2019 Diagnosis COVID-19 Fatty liver Other chronic [...] Everywhere. * Coronavirus Disease (COVID-19): General Info (Yemeni) documented in this encounter Additional Source Comments INFORMATION SOURCE (unrecogn ized section and content) DATE CREATED AUTHOR 11/24/2017 [facility] DATE CREATED AUTHOR AUTHOR'S ORGANIZ ATION 08/26/2018 [facility] DATE CREATED AUTHOR AUTHOR'S ORGANIZ ATION 09/24/2020 [facility] DATE CREATED AUTHOR AUTHOR'S ORGANIZ ATION 10/30/2024 [facility] DATE CREATED AUTHOR AUTHOR'S ORGANIZ ATION 01/10/2025 [facility] dical Specialists EPIC Evaluations & Outcomes [...] US TRANSVAGINAL, NON OB Dana Akins MD [address] [place] [address] [facility] Ultrasound [address] [place] [address] Reason Comments Emesis multiple episodes si nce [...] Care Teams (unrecognized sec tion and content) Patient Case Coordinator Relationship Specialty Start Date End Date Miguel Holley APRN - CNP PCP - General Family Medicine 04/08/20 Patient Case Coordinator Relationship Specialty Start Date End Date Miguel Holley APRN - CNP PCP - General Family Medicine 04/08/20 Patient Case Coordinator Relationship Specialty Start Date End Date Miguel Holley APRN - DIANELYS PCP - General Family Medicine 04/08/20 Patient Case Coordinator Relationship Specialty Start Date End Date Miguel Holley APRN - DIANELYS PCP - General Family Medicine 04/08/20 FOR [...] BE BASED ON THE PRIMARY CLINICAL RECORDS. [facility]. provides no warranty or guarantee of the accuracy or completeness of information in this document.
== END 2025-01-23 08:52 | disposition home or self-care (01) ==
LOC: FBCO 08:15 → FBC 08:15
PROVIDERS: Visit Provider Obstetrics & Gynecology
DX: O24.419 Gestational diabetes mellitus in pregnancy, unspecified control (principal); Z3A.34 34 weeks gestation of pregnancy
CPT/HCPCS: 59025

== ENCOUNTER 2025-01-26 09:00 | Outpatient (OUT) | payer MEDICAID, SELFPAY ==
--- OUTSIDE RECORDS SUMMARY | 2025-01-09 11:10 | XMS_ITS | Encounter Summary ---
Author Organization [facility] Address [address] [place] [address] Care Team Providers Care Crystal Attacher Name Role Phone Unavailable Primary Care Provider Unavailabl e Reason for Visit * Reason Comments Routine Visit Encounter Details Date Type Department Care Team (Late st Contact Info) Description 01/09/2025 11:10 AM EDT [facility] [address] [place] [phone] Aditya Cervantes DO [address] [place] [id number] Third trimester ([facility]); 32 weeks gestation of ([facility]); Gestational diabetes mellitus (GDM), antepartum, gestational diabetes method of control unspecified ([facility]); Hyperglycemia during ([facility]) Social History Tobacco Use Types Packs/Day Years Used Date Smoking Tobacco: Never Assessed Estimated Date of Delivery Comme nts Yes 03/06/2025 Based on Ultraso und Sex and Gender Information Value Date Recorded Sex Assigned at Not on file Legal Sex Female 3:04 PM EDT Gender Identity Not on file Sexual Orientation Not on file documented as of this encounter Progress Notes * DO Pat Yeager 01/09/2025 11:10 AM EDT Reason for Appointment: Patient ID: Estefania Cedeño is a 29 y.o. female who presents for Routine Visit Patient presents today for Return OB appointment. Current Medications: has a current medication list which includes the following prescription(s): aspirin, dexcom g6 sensor, dexcom g6 transmitter, metformin xr, and pnv plus multivitamin. Medical History: Active Ambulatory Problems Diagnosis Date Noted No Active Ambulatory Problems Resolved Ambulatory Problems Diagnosis Date Noted Excessive growth affecting management of mother, antepartum ([facility]) 12/06/2023 Third trimester ([facility]) 12/06/2023 No Additional Past Medical History Family History Problem Relation Name Age of Onset Lupus Mother Rheum arthritis Mother Fibromyalgia Mother Diabetes Father Social History Tobacco Use Smoking status: Not on file Smokeless tobacco: Not on file Substance Use Topics Alcohol use: Not on file Drug use: Not on file Past Surgical History: Procedure Laterality Date SECTION, LOW TRANSVERSE 01/03/2024 Allergies Allergen Reactions Triamcinolone Other and Hives Had to have reconstructive surgery. Dimpling of the skin Other NUTS Review of Systems: Review of Systems Constitutional: Negative. HENT: Negative. Eyes: Negative. Respiratory: Negative. Cardiovascular: Negative. Gastrointestinal: Negative. Genitourinary: Negative. Musculoskeletal: Negative. Skin: Negative. Neurological: Negative. All other systems reviewed and are negative. Hematological: Negative. Endocrine: Negative. Allergic/Immunologic: Negative. Objective Physical Exam Constitutional: Appearance: Normal appearance. She is well-developed. Cardiovascular: Rate and Rhythm: Normal rate and regular rhythm. Pulmonary: Effort: Pulmonary effort is normal. Breath sounds: Normal breath sounds. Abdominal: General: Bowel sounds are normal. There is no distension. Palpations: Abdomen is soft. Tenderness: There is no abdominal tenderness. There is no guarding or rebound. Musculoskeletal: General: No swelling. Normal range of motion. Right lower leg: No edema. Left lower leg: No edema. Neurological: Mental Status: She is alert and oriented to person, place, and time. Skin: General: Skin is warm and dry. Psychiatric: Mood and Affect: Mood normal. Behavior: Behavior normal. Vitals and nursing note reviewed. Exam conducted with a pulverizing and sifting operator present. Vitals: Estimated body mass index is 42.88 kg/m?? as calculated from the following: Height as of 01/10/24: 5' 7 . Weight as of 12/27/24: 273 lb 12.8 oz. BP: No LMP recorded. Patient is . Assessment/Plan Encounter Diagnosis: ICD-10-CM 1. Third trimester ([facility]) Z34.93 POCT urinalysis dipstick manually resulted 2. 32 weeks gestation of ([facility]) Z3A.32 3. Gestational diabetes mellitus (GDM), antepartum, gestational diabetes method of control unspecified ([facility]) O24.419 4. Hyperglycemia during ([facility]) O99.810 US biophysical profile w non stress test metFORMIN XR (Glucophage-XR) 500 MG 24 hr tablet Return OB: Patient presents today for a routine obstetrics appointment. Patient is currently 32w1d . Patient states she is doing well but has complaints of being tired due to current . Patient has verbalizes frequent movement. labor precautions was discussed/given and patient was instructed to perform kick counts three times a day. Orders Placed This Encounter Procedures US biophysical profile w non stress test POCT urinalysis dipstick manually resulted Follow Up: Patient is to return to office in 1 week for routine OB appointment. Documented by Aditya Cervantes DO on behalf of: Aditya Cervantes DO documented in this encounter Plan of Treatment Upcoming Encounters Date Type Department Care Team (Late st Contact Info) Description 02/06/2025 10:10 AM EDT [facility] [address] [place] [address] Aditya Cervantes DO [address] [place] [address] Scheduled Orders Name Type Priority Associated Diagnoses Orde r Schedule US biophysical profile w non stress test Imaging Routine Hyperglycemia during ([facility]) Expected: 01/09/2025 (Approximate), Expires: 07/12/2025 documented as of this encounter Procedures Procedure Name Priority Date/Time Associated Diagnosis Comments POCT URINALYSIS DIPSTICK Routine 01/09/2025 11:28 AM EDT Third trimester ([facility]) documented in this encounter Results * POCT urinalysis dipstick manually resulted (01/09/2025 11:28 AM EDT) Color, UA Yellow Clarity, UA Clear Glucose, UA Negative Negative - 2000(110) ++++ mg/dL Bilirubin, UA Negative Negative - 4(70) +++ mg/dL Ketones, UA Negative Negative - 160(16) ++++ mg/dL Spec Grav, UA 1.015 1 - 1.03 Blood, UA Negative Negative - 50 Chuy/mcL pH, UA 6.5 5 - 9 Protein, UA Negative Negative - 2000(20) ++++ mg/dL Urobilinogen, UA 1.0 0.2 - 12 mg/dL Leukocytes, UA Negative Negative - 500+++ Sadi/mcL Nitrite, UA Negative Negative - Positive Urine 01/09/2025 11:2 8 AM EDT Aditya Cervantes DO POINT OF CARE TEST ENTER/EDIT OR DERABLES Final Result documented in this encounter Visit Diagnoses Diagnosis Third trimester ([facility]) state, incidental 32 weeks gestation of ([facility]) Gestational diabetes mellitus (GDM), antepartum, gestational diabetes method of control unspecified ([facility]) Hyperglycemia during ([facility]) documented in this encounter
--- OUTSIDE RECORDS SUMMARY | 2025-01-23 09:50 | XMS_ITS | Encounter Summary ---
Author Organization [facility] Address [address] [place] [address] Care Team Providers Care Sliver Machine Operator Name Role Phone Unavailable Primary Care Provider Unavailabl e Reason for Visit * Reason Comments Routine Visit Encounter Details Date Type Department Care Team (Late st Contact Info) Description 01/23/2025 9:50 AM EDT Routine [facility] [address] [place] [address] Latasha Padgett PA [address] [place], [facility]11 Third trimester ([facility]); 34 weeks gestation of ([facility]) Social History Tobacco Use Types Packs/Day [...] Excessive growth affecting management of mother, antepartum ([facility]) 12/06/2023 Third trimester ([facility]) 12/06/2023 No Additional Past Medical History HISTORY [...] AM EDT Routine [facility] [address] [place] [address] Aditya Cervantes DO [address] [place] [address] documented as of this encounter Visit Diagnoses Diagnosis Third trimester ([facility]) state, incidental 34 weeks gestation of ([facility]) documented in this encounter
--- OUTSIDE RECORDS SUMMARY | 2025-01-26 09:03 | XMS_ITS | Encounter Summary ---
Author Organization [facility] Address [address] [place] [address] Care Team Providers Care Chief Port Director Name Role Phone Unavailable Primary Care Provider Unavailabl e Encounter Details Date Type Department Care Team (Late st Contact Info) Description 12/21/2023 Abstract [facility] [address] [place] [phone] Hedy Singh LPN [address] [place] [phone] Social History Tobacco Use Types Packs/Day Years [...] Info) Description 02/06/2025 10:10 AM EDT Routine DENISE CESAR [address] [place] [phone] Aditya Cervantes DO [address] [place], [place] [phone] documented as of this encounter Visit Diagnoses Not on filedocumented in this encounter
--- OUTSIDE RECORDS SUMMARY | 2025-01-26 09:03 | XMS_ITS | Encounter Summary ---
Author Organization [facility] Address [address] [place] [address] Care Team Providers Care Management Planner Name Role Phone Unavailable Primary Care Provider Unavailabl e Encounter Details Date Type Department Care Team (Late st Contact Info) Description 12/30/2023 Clinisync Result Encounter [facility] External Department Unsolicited Bruce Cervantes, DO [address] [place] [address] Social History Tobacco Use Types Packs/Day Years [...] Info) Description 02/06/2025 10:10 AM EDT Routine [facility] [place] [facility] [address] [address] Bruce Cervantes DO [address] [place] [address] documented as of this encounter Procedures Procedure Name Priority Date/Time Associated Diagnosis Comments US OB BPP W NON-STRESS 12/30/2023 12:19 PM EDT documented in this encounter Results * US OB BPP W NON-STRESS (12/30/2023 12:19 PM EDT) Anatomical Region Laterality Modality Other 12/30/2023 12:1 9 PM EDT Narrative 12/30/2023 12:22 [place] [address] Ultrasound Report Signed Patient: ESTEFANIA CEDEÑO MR#: [id number] : 1995 Acct:[id number] Age/Sex: 28 / F ADM Date: 12/30/23 Loc: US Attending Dr: Bruce Cervantes D.O. Ordering Physician: Bruce Cervantes D.O. Date of Service: 12/30/23 Procedure(s): US OB BPP w non-stress Accession Number(s): [id number] cc: Bruce Cervantes D.O.; Physician,Non-Staff [place] [address] Patient Name: ESTEFANIA CEDEÑO MRN: [id number] date: 1995 Sex: F Assigned Patient Location: [facility] Current Patient Location: Accession/Order Number: [id number] Exam Date: 12/30/2023 10:17 Report Date: 12/30/2023 [...] Signed By: 12/30/23 1222 DD/ 1219 TD/TT: Product Assurance Engineer: Procedure Note Radiology, Radiologist, - 12/30/2023 [place] [address] Ultrasound Report Signed Patient: TRINITY CEDEÑO#: [id number] : 1995Acct:[id number] Age/Sex: 28 / FADM Date: 12/30/23 Loc: US Attending Dr: Bruce Cervantes D.O. Ordering Physician: Bruce Cervantes D.O. Date of Service: 12/30/23 Procedure(s): US OB BPP w non-stress Accession Number(s): [id number] cc: Bruce Cervantes D.O.; Physician,Non-Staff [address] [place] [address] Patient Name: ESTEFANIA CEDEÑO MRN: [facility]:[id number] date: 1995 Sex: F Assigned Patient Location: [facility] Current Patient Location: Accession/Order Number: [id number] Exam Date: 12/30/2023 10:17 Report Date: 12/30/2023 [...] M.D. Signed By:12/30/23 1222 DD/ 1219 TD/TT: Product Assurance Engineer: us Bruce Cervantes DO [facility] Final Result documented in this encounter Visit Diagnoses Not on filedocumented in this encounter
--- OUTSIDE RECORDS SUMMARY | 2025-01-26 09:04 | XMS_ITS | Encounter Summary ---
Author Organization [facility] Address [address] [place] [address] Care Team Providers Care Insurance Assistant Name Role Phone Unavailable Primary Care Provider Unavailabl e Encounter Details Date Type Department Care Team (Late st Contact Info) Description 10/04/2023 Clinisync Result Encounter NOMS External Department Unsolicited Bruce Cervantes, DO [address] [place] [address] Social History Tobacco Use Types Packs/Day Years [...] EDT Routine [facility] [place] [facility] [address] [place] [address] Bruce Cervantes DO [address] [place] [address] documented as of this encounter Procedures Procedure Name Priority Date/Time Associated Diagnosis Comments US RIGHT UPPER QUADRANT 10/04/2023 2:02 PM EDT [facility] LIPASE Routine 10/04/2023 1:40 PM EDT [facility] CMP (CMP) (FOR REMOTE [facility] USE) Routine 10/04/2023 1:40 PM EDT ALL AMYLASE Routine 10/04/2023 1:40 PM EDT OVA + PARASITE EXAM Routine 10/04/2023 1 :00 PM EDT documented in this encounter Results * US RIGHT UPPER QUADRANT (10/04/2023 2:02 PM EDT) Anatomical Region Laterality Modality Other 10/04/2023 2:02 PM EDT Narrative 10/04/2023 2:05 [place] [address] Ultrasound Report Signed Patient: ESTEFANIA CEDEÑO MR#: [id number] : 1995 Acct:[id number] Age/Sex: 28 / F ADM Date: Loc: [facility] 257-[address]: Bruce Cervantes D.O. Ordering Physician: Bruce Cervantes D.O. Date of Service: 10/04/23 Procedure(s): US right upper quadrant Accession Number(s): [id number] cc: Bruce Cervantes D.O.; Physician,Non-Staff MSirena [place] [id number] Patient Name: ESTEFANIA CEDEÑO MRN: [id number] date: 1995 Sex: F Assigned Patient Location: [facility] Current Patient Location: [facility] Accession/Order Number: [id number] Exam Date: 10/04/2023 13:10 Report Date: 10/04/2023 [...] Stone M.D. Signed By: 10/04/23 1405 DD/ 140 TD/TT: Magnetic Prospecting Operator: Procedure Note Radiology, Radiologist, - 10/04/2023 [place] [address] Ultrasound Report Signed Patient: TRINITY CEDEÑO#: [id number] : 1995Acct:[id number] Age/Sex: 28 FADM Date: Loc: [facility] 257-[address]: Bruce Cervantes D.O. Ordering Physician: Bruce Cervantes D.O. Date of Service: 10/04/23 Procedure(s): US right upper quadrant Accession Number(s): [id number] cc: Bruce Cervantes D.O.; Physician,Non-Staff Roberto [place] [address] Patient Name: ESTEFANIA CEDEÑO MRN: [facility]:[id number] date: 1995 Sex: F Assigned Patient Location: [facility] Current Patient Location: [facility] Accession/Order Number: [id number] Exam Date: 10/04/2023 13:10 Report Date: 10/04/2023 [...] M.D. Signed By:10/04/23 1405 DD/ 1402 TD/TT: Magnetic Prospecting Operator: us Bruce Billy DO [facility] Final Result * [facility] LIPASE (10/04/2023 1:40 PM EDT) LIPASE 30.0 16.0 - 77.0 U/L TB 10/04/2023 1:40 PM EDT 10/04/2023 1:45 PM EDT Narrative [facility] - 10/04/2023 2:26 PM EDT Bruce Billy DO [facility] Final Result [facility] TB * (ABNORMAL) [facility] CMP (CMP) (FOR REMOTE [facility] USE) (10/04/2023 1:40 PM EDT) SODIUM 137 136 - 145 mmol/L [facility] POTASSIUM 3.5 3.5 - 5.1 mmol/L [facility] CHLORIDE 106 98 - 107 mmol/L [facility] CARBON DIOXIDE 20.4(L) 21.0 - 32.0 mmol/L [facility] ANION GAP 14.1 [facility] GLUCOSE 72(L) 74 - 106 mg/dL [facility] BLOOD UREA NITROGEN 6.0(L) 7.0 - 18.0 mg/dL [facility] CREATININE 0.39(L) 0.55 - 1.02 mg/dL [facility] EGFR-AF [place] >60 >=60 TB[facility] TBH EGFR-NON AF [place] >60 >=60 [facility] BUN CREATININE RATIO 15.4 [...] EDT Bruce Billy DO [facility] Final Result Performing Organization Address [facility] Phone Number [facility] * ALL AMYLASE (10/04/2023 1:40 PM EDT) AMYLASE 58 25 - 115 U/L TB 10/04/2023 1:40 PM EDT 10/04/2023 1:45 PM EDT Narrative [facility] - 10/04/2023 2:14 PM EDT Bruce Billy DO [facility] Final Result Performing Organization Address [facility] Number [facility] * OVA + PARASITE EXAM (10/04/2023 1:00 PM EDT) OVA + PARASITE EXAM Final report . [facility] Comment: These results were obtained using wet preparation(s) and trichrome stained smear. This test does not include testing for Cryptosporidium parvum, Cyclospora, or Microsporidia. RESULT 1 Comment . [facility] Comment: No ova, cysts, or parasites seen. One negative specimen does not rule out the possibility of a parasitic infection. Performed at: [address] [id number] Director Of Social Work: Rubén Ellison PhD, Phone: [phone] 10/04/2023 1:00 PM EDT 10/04/2023 1:52 PM EDT Narrative [facility] - 10/06/2023 9:09 PM EDT Bruce Billy DO LAB BLOOD ORDERABLES Final Resul t Performing Organization Address [facility] Phone Number [facility] documented in this encounter Visit Diagnoses Not on filedocumented in this encounter
--- OUTSIDE RECORDS SUMMARY | 2025-01-26 09:04 | XMS_ITS | Encounter Summary ---
Author Organization [facility] Address [address] [place] [address] Care Team Providers Care Rn Referral Name Role Phone Unavailable Primary Care Provider Unavailabl e Encounter Details Date Type Department Care Team (Late st Contact Info) Description 12/13/2024 Results Follow-Up DENISE CESAR [address] [address] Hedy Singh LPN [address] [place] [address] GLUCOSE TOLERANCE 3 HOUR Social [...] AM EDT Routine NOMJean Carlos CESAR [address] [place] [address] Aditya Cervantes, [address] [facility] [place] [address] documented as of this encounter Visit Diagnoses Not on filedocumented in this encounter
--- OUTSIDE RECORDS SUMMARY | 2025-01-26 09:04 | XMS_ITS | Encounter Summary ---
Author Organization [facility] Address [address] [place] [address] Care Team Providers Care Marketing Project Coordinator Name Role Phone Unavailable Primary Care Provider Unavailabl e Encounter Details Date Type Department Care Team (Late st Contact Info) Description 10/05/2023 Clinisync Result Encounter NOMS External Department Unsolicited Bruce Cervantes, DO [address] [place] [address] Social History Tobacco Use Types Packs/Day Years [...] EDT Routine NOM[facility] Carlos [place] [facility]BG[facility] [address] [place] [address] Bruce Cervantes DO [address] [place] [address] documented as of this encounter Procedures Procedure Name Priority Date/Time Associated Diagnosis Comments CT ABDOMEN/PELVIS WO CONT 10/05/2023 8:17 AM EDT documented in this encounter Results * CT ABDOMEN/PELVIS WO CONT (10/05/2023 8:17 AM EDT) Anatomical Region Laterality Modality Radiographic Mari ging 10/05/2023 8:17 AM EDT Narrative 10/05/2023 8:20 [place] [address] CT Scan Report Signed Patient: ESTEFANIA CEDEÑO MR#: [id number] : 1995 Acct:[id number] Age/Sex: 28 / F ADM Date: Loc: [facility] 257-[address]: Bruce Cervantes D.O. Ordering Physician: Bruce Cervantes D.O. Date of Service: 10/05/23 Procedure(s): CT abdomen pelvis wo con Accession Number(s): [id number] cc: Physician,Non-Staff M.DAsiya [place] [address] Patient Name: ESTEFANIA CEDEÑO MRN: [facility]:[id number] date: 1995 Sex: F Assigned Patient Location: [facility] Current Patient Location: [facility] Accession/Order Number: [id number] Exam Date: 10/05/2023 07:38 Report Date: 10/05/2023 [...] M.D. Signed By: 10/05/23819 DD/ 6 TD/TT: Communication Studies Professor: Procedure Note Radiology, Radiologist, MD - 10/05/2023 [place] [address] CT Scan Report Signed Patient: TRINITY CEDEÑO#: [id number] : 1995Acct:[id number] Age/Sex: Date: Loc: [facility] 257-[address]: Bruce Cervantes D.O. Ordering Physician: Bruce Cervantes D.O. Date of Service: 10/05/23 Procedure(s): CT abdomen pelvis wo con Accession Number(s): [id number] cc: Physician,Non-Staff Roberto [address] [place] [address] Patient Name: ESTEFANIA CEDEÑO MRN: [facility]:[id number] date: 1995 Sex: F Assigned Patient Location: [facility] Current Patient Location: [facility] Accession/Order Number: [id number] Exam Date: 10/05/2023 07:38 Report Date: 10/05/2023 [...] Krueger M.D. Signed By:10/05/23819 DD/ 6 TD/TT: Communication Studies Professor: Bruce Cervantes DO IMG XR PROCEDURES Final Result documented in this encounter Visit Diagnoses Not on filedocumented in this encounter
--- OUTSIDE RECORDS SUMMARY | 2025-01-26 09:04 | XMS_ITS | Clinical Summary ---
Author Organization [facility] Address [address] [place] [address] Care Team Providers Care Linesperson Name Role Phone Unavailable Primary Care Provider Unavailabl e Allergies Active Allergy Reactions Criticality Noted Date Comments Other 04/18/2024 NUTS Triamcinolone Other,Hives High 10/13/2013 Had to have reconstructive surgery. Dimpling of the skin Medications Vit-Fe Fumarate-FA (PNV Plus Multivitamin) 27-1 MG tabletIndicatio ns:Encounter for supervision of normal first in first trimester ([facility]) Take 1 tablet by mouth Daily 30 tablet 11 5 Active aspirin 81 MG EC tablet Take 81 mg by mouth Daily Active Continuous Glucose Transmitter (Dexcom G6 transmitter) miscIndications :Gestational diabetes mellitus (GDM), antepartum, gestational diabetes method of control unspecified ([facility]) Use as instructed 1 each 5 Active metFORMIN XR (Glucophage-XR) 500 MG 24 hr tabletIndicatio ns:Hyperglycemi a during ([facility]) Take 1 tablet (500 mg) by mouth in the evening. Take with meals Do not crush, chew, or split. 30 tablet 11 5 02/09/20 25 Active Continuous Glucose Sensor (Dexcom G6 Sensor) miscIndications :Elevated glucose tolerance test,28 weeks gestation of ([facility]),Gesta tional diabetes mellitus (GDM), antepartum, gestational diabetes method of control unspecified ([facility]) 1 each Every 10 (ten) days 3 each 3 5 Active Continuous Glucose Sensor (Dexcom G6 Sensor) miscIndications :Elevated glucose tolerance test,28 weeks gestation of ([facility]),Gesta tional diabetes mellitus (GDM), antepartum, gestational diabetes method of control unspecified ([facility]) 1 each Every 10 (ten) days 3 each 3 5 01/19/20 25 Discontin ued(Reord er) Resolved Problems Problem Noted Date Diagnosed Date Resolved Date Excessive growth affec ting management of mother, antepartum ([facility]) 12/06/2023 01/03/20 24 Third trimester ([facility]) 12/06/2023 01/03/2024 Encounters Date Type Department Care Team Description 01/23/2025 9:50 AM [place] [phone] Latasha Padgett PA Third trimester ([facility]); 34 weeks gestation of ([facility]) 01/23/2025 [place] [address] Latasha Padgett PA 01/19/2025 Clinisync Result Encounter NOMS External Department Unsolicited Bruce Cervantes DO 01/18/2025 [place] [address] Cammie Polo MA Elevated glucose tolerance test; 28 weeks gestation of ([facility]); Gestational diabetes mellitus (GDM), antepartum, gestational diabetes method of control unspecified ([facility]) 01/09/2025 11:10 AM [place] [address] Bruce Cervantes DO Third trimester ([facility]); 32 weeks gestation of ([facility]); Gestational diabetes mellitus (GDM), antepartum, gestational diabetes method of control unspecified ([facility]); Hyperglycemia during ([facility]) 01/09/2025 [place] [phone] Bruce Cervantes DO 01/09/2025 Abstract [facility] [address] Bruce Cervantes, 01/09/2025 Bamboo flowsheet [facility] [place] [address] Bruce Cervantes, 12/27/2024 11:00 AM EDT Ancillary Procedure [facility] [place] [phone] Elevated glucose tolerance test; Gestational diabetes mellitus (GDM), antepartum, gestational diabetes method of control unspecified ([facility]) 12/27/2024 10:20 [place] [address] Latasha Padgett PA Third trimester ([facility]) 12/27/2024 Bamboo flowsheet [facility] [place] [address] Latasha Padgett PA 12/19/2024 Telephone [facility] [place] [address] Cammie Polo MA 12/13/2024 1:40 PM EDT Routine [facility] [place] [address] Bruce Cervantes DO Elevated glucose tolerance test; History of gestational diabetes; Third trimester ([facility]); 28 weeks gestation of ([facility]); Gestational diabetes mellitus (GDM), antepartum, gestational diabetes method of control unspecified ([facility]) 12/13/2024 [place] [address] Hedy Singh LPN GLUCOSE TOLERANCE 3 HOUR 12/12/2024 Clinisync Result Encounter NOMS External Department Unsolicited Bruce Cervantes DO 12/05/2024 Clinisync Result Encounter NOMS External Department Unsolicited Latasha Padgett PA 12/05/2024 Clinisync Result Encounter NOMS External Department Unsolicited Bruce Cervantes DO 11/28/2024 [place] [address] Bruce Cervantes DO 11/22/2024 1:50 PM [place] [address] Bruce Cervantes DO Dizziness (Primary Dx); 25 weeks gestation of ([facility]); Second trimester ([facility]); History of gestational diabetes; Diabetes mellitus screening 11/22/2024 Bamboo flowsheet [facility] [place] [address] Bruce Cervantes DO 10/31/2024 [place] [address] Bruce Cervantes DO from Last 3 Months [...] oz) 01/23/2025 9:44 A M EDT Height 170.2 cm (5' 7 ) 01/10/2024 8:56 AM EDT Body Mass Index 43.35 01/10/2024 8:56 AM EDT Plan of Treatment Upcoming Encounters Date Type Department Care Team (Late st Contact Info) Description 02/06/2025 10:10 AM EDT Routine [facility] [address] [facility] [place] [address] Bruce Cervantes, [address] [facility] [place] [address] Health Maintenance Due Date Last Done Comments Influenza Vaccine (#1) 2025 Procedures Procedure Name Priority Date/Time Associated Diagnosis Comments US OB BPP W NON-STRESS 01/19/2025 2:26 PM EDT POCT URINALYSIS DIPSTICK Routine 01/09/2025 11:28 AM EDT Third trimester ([facility]) US OB FOLLOW UP TRANSABDOMINAL APPROACH Routine 12/27/2024 11:31 AM EDT Elevated glucose tolerance test Gestational diabetes mellitus (GDM), antepartum, gestational diabetes method of control unspecified ([facility]) POCT URINALYSIS DIPSTICK Routine 12/27/2024 10:47 AM EDT Third trimester ([facility]) POCT URINALYSIS DIPSTICK Routine 12/13/2024 2:01 PM EDT Third trimester ([facility]) 28 weeks gestation of ([facility]) GLUCOSE TOLERANCE 3 HOUR Routine 12/12/2024 11:18 AM EDT GLUCOSE 1 HOUR Routine 12/05/2024 10:53 AM EDT ALL CBC WITH AUTO DIFF Routine 10:53 AM EDT ECG 12-LEAD 12/05/2024 9:07 AM EDT POCT URINALYSIS DIPSTICK Routine 11/22/2024 2:36 PM EDT 25 weeks gestation of ([facility]) Second trimester ([facility]) History of gestational diabetes from Last 3 Months Results * US OB BPP W NON-STRESS (01/19/2025 2:26 PM EDT) Anatomical Region Laterality Modality Other 01/19/2025 2:26 PM EDT Narrative 01/19/2025 2:29 [place] [address] Ultrasound Report Signed Patient: ESTEFANIA CEDEÑO MR#: [id number] : 1995 Acct:[id number] Age/Sex: 29 / F ADM Date: 01/19/25 Loc: US Attending Dr: Bruce Cervantes D.O. Ordering Physician: Bruce Cervantes D.O. Date of Service: 01/19/25 Procedure(s): US OB BPP w non-stress Accession Number(s): [id number] cc: Bruce Cervantes D.O.; Physician,Non-Staff Roberto The [place] [address] Patient Name: ESTEFANIA CEDEÑO MRN: [id number] date: 1995 Sex: F Assigned Patient Location: [facility] Current Patient Location: Accession/Order Number: [id number] Exam Date: 01/19/2025 09:10 Report Date: 01/19/2025 [...] Saez M.D. 01/19/2025 2:26 PM Dictation Location: [place] [address] Electronically authenticated by: [id number] Y Date: 01/19/2025 14:26 Dictated By: Carroll Saez D.O. Signed By: 01/19/25 1429 DD/ 25 TD/TT: Supervisor Sandblaster: Procedure Note Radiology, Radiologist, - 01/19/2025 [place] [address] Ultrasound Report Signed Patient: ESTEFANIA CEDEÑO R#: [id number] : 1995Acct:[id number] Age/Sex: 29 / FADM Date: 01/19/25 Loc: US Attending Dr: Bruce Cervantes D.O. Ordering Physician: Bruce Cervantes D.O. Date of Service: 01/19/25 Procedure(s): US OB BPP w non-stress Accession Number(s): [id number] cc: Bruce Cervantes D.O.; Physician,Non-Staff Roberto The [place] [address] Patient Name: ESTEFANIA CEDEÑO MRN: [id number] date: 1995 Sex: F Assigned Patient Location: [facility] Current Patient Location: Accession/Order Number: [id number] Exam Date: 01/19/2025 09:10 Report Date: 01/19/2025 [...] Saez M.D. 01/19/2025 2:26 PM Dictation Location: [facility] Electronically authenticated by: [id number] Y Date: 4:26 Dictated By: Carroll Saez D.O. Signed By:01/19/25 1429 DD/ 1426 TD/TT: Supervisor Sandblaster: us Bruce Billy DO [facility] Final Result * POCT urinalysis dipstick manually resulted (01/09/2025 11:28 AM EDT) Only the most recent of4 resultswithin the time period is included. Color, [...] Positive Urine 01/09/2025 11:2 8 AM EDT us Bruce Billy DO POINT OF CARE TEST [...] II, MD, PHD at 28-Dec-2024 08:33:38 AM [facility] Procedure Note Peng Johnson MD - 12/28/2024 EXAM: US OB FOLLOW [...] signed by PENG JOHNSON II, MD, PHD [id number] 08:33:38 AM [facility] us Bruce Billy DO IM OB US PROCEDURES Final Resul t * [...] Narrative [facility] - 12/12/2024 3:11 PM EDT Bruce Billy DO LAB BLOOD ORDERABLES Final Resul t Performing Organization Address City/[facility]/ZIP Co de Phone Number [facility] * (ABNORMAL) GLUCOSE 1 HOUR (12/05/2024 10:53 AM EDT) Pathologist [facility] GLUCOSE 1 HOUR 176(H) <130 mg/dL [facility] 12/05/2024 10:5 3 AM EDT 12/05/2024 10:54 AM EDT Narrative [facility] - 12/05/2024 11:23 AM EDT Bruce Billy DO LAB BLOOD ORDERABLES [...] [facility] - 12/05/2024 11:14 AM EDT us Bruce Buenrostroo DO [facility] Final Result [facility] * ECG 12-LEAD (12/05/2024 9:07 AM EDT) Anatomical Region Laterality Modality Other 12/05/2024 9:07 AM EDT Narrative 12/07/2024 9:00 AM EDT [address] [address] Electrocardiograph Report Signed Patient: ESTEFANIA CEDEÑO MR#: [id number] : 1995 Acct:[id number] Age/Sex: 29 / F ADM Date: 12/05/24 Loc: CR Attending Dr: Latasha Padgett Ordering Physician: Latasha Padgett Date of Service: 12/05/24 Procedure(s): ECG 12 lead Accession Number(s): [id number] cc: [facility] Test Date: 2024-12-05 Pat Name: ESTEFANIA CEDEÑO Department: Room: - Gender: Female 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 Signed By: 12/07/2489912/07/24899 DD/ 09 TD/TT: Supervisor Sandblaster: Procedure Note Radiology, Radiologist, MD - 12/07/2024 [place] [address] Electrocardiograph Report Signed Patient: ESTEFANIA CEDEÑO R#: [id number] : 1995Acct:[id number] Age/Sex: 29 / FADM Date: 12/05/24 Loc: CR Attending Dr: Latasha Padgett Ordering Physician: Latasha Padgett Date of Service: 12/05/24 Procedure(s): ECG 12 lead Accession Number(s): [id number] cc: [facility] Test Date: 2024-12-05 Pat Name: ESTEFANIA CEDEÑO Department: Room: - Gender: Female Aircraft De Icer Installer: : 1995 Requested By: [id number] Order Number: [id number] Reading MD: ANTON THORPE Measurements Intervals [place] Rate: 68 P: 55 DE: 116 QRS: 72 QRSD: 94 T: 14 QT: 411 QTc: 439 Interpretive Statements SINUS RHYTHM WITH SHORT DE INTERVAL NONSPECIFIC T-WAVE ABNORMALITY No previous ECG available for comparison Electronically Signed On 12-07-2024 9:00:49 EDT by ANTON THORPE Dictated By: Anton Thorpe M.D. Signed By:12/07/2489912/07/24899 DD/ 6 TD/TT: Supervisor Sandblaster: Latasha KULKARNI [facility] Final Result from Last 3 Months Insurance
--- OUTSIDE RECORDS SUMMARY | 2025-01-26 09:04 | XMS_ITS | Encounter Summary ---
Author Organization [facility] Address [address] [place] [address] Care Team Providers Care Electrician Technician Name Role Phone Unavailable Primary Care Provider Unavailabl e Encounter Details Date Type Department Care Team (Late st Contact Info) Description 09/19/2024 Abstract [facility] [place] [phone] Aditya Cervantes, DO [address] [place], [facility] Social History Tobacco Use Types Packs/Day Years [...] 02/06/2025 10:10 AM EDT Routine [facility] [place] [phone] Aditya Cervantes, DO [address] [place], [facility]11 documented as of this encounter Visit Diagnoses Not on filedocumented in this encounter
--- OUTSIDE RECORDS SUMMARY | 2025-01-26 09:04 | XMS_ITS | Clinical Summary ---
Author Organization [facility] Address [address], [address] [place] [address] Care Team Providers Care Applications Development Analyst Name Role Phone Billie Sharpe ASSISTANT TEACHER PRIMARY - SENIOR JAVA WEB APPLICATION DEVELOPER Primary Care Provider Allergies Active Allergy Reactions [...] Procedure Name Priority Date/Time Associated Diagnosis Comments ENGINE WATCHMAN CYTOLOGY Routine 01/01/2023 12:00 AM EDT C.TRACHOMATIS N.GONORRHOEAE DNA, THIN PREP Routine 02/07/2018 1:05 PM EDT Screen for STD (sexually transmitted disease) from Last 3 Months or Most Recently Relevant to Health Maintenance Results * ENGINE WATCHMAN Cytology (01/01/2023 12:00 AM EDT) Cytology Report Path Number: [id number] DIAGNOSIS Imaged ThinPrep Pap - Cervical (1 [...] Abnormal Clinical History Intrauterine device Z01.419 Routine quarter supervisor exam without abnormal findings High risk HPV DNA testing is requested if the diagnosis is abnormal Processing Lab: [address] [address] Interpretation performed at [address] [address] This Pap Test has been evaluated with the assistance of the Mitok[employer]ep Pap Test Imaging System. The Pap smear is a screening test primarily for squamous epithelial lesions, which is subject to both false negative and false positive results. Your patient should be reminded to consult you immediately if she experiences any suspicious signs or symptoms, regardless of her Pap smear result. GYNECOLOGIC CYTOLOGY REPORT Patient Name: ESTEFANIA CEDEÑO [facility] Rec: [id number] [facility] ANATOMIC PATHOLOGY [facility]. [place], [place] [address] [facility] CERVICAL MATERIAL 01/01/2023 023 7:03 AM EDT us Mychal Nichols MD PATHOLOGY/CYTOLOGY ORDERABLES Final Result [facility] [address] [phone] [facility] [employer] * C.trachomatis N.gonorrhoeae DNA, Thin Prep (02/07/2018 1:05 PM EDT) Chlamydia By Thin Prep NEGATIVE NEG 02/09/2018 2:02 PM EDT [employer] Comment: CHLAMYDIA TRACHOMATIS DNA not detected by [...] Prep NEGATIVE NEG 02/09/2018 2:02 PM EDT [employer] Comment: NEISSERIA GONORRHOEAE DNA not detected by [...] EDT 02/07/2018 1:05 PM EDT Pilar Pinto Frank ASSISTANT TEACHER PRIMARY - CNM MICROBIOLOGY - GENERA L ORDERABLES Final Result [facility] [address] [place] [address], [facility] [phone] [employer] [address] [place] [address], [facility] [phone] from Last 3 Months or Most Recently Relevant to Health Maintenance Insurance Advance Directives * Full Code (Latest Code Status on File) Date Activated Date Inactivated Comments 01/20/2023 7:21 AM 01/20/2023 3:02 PM Care Teams Applications Development Analyst Relationship Specialty Start Date End Date Billie Sharpe, ASSISTANT TEACHER PRIMARY - SENIOR JAVA WEB APPLICATION DEVELOPER PCP - General Family Medicine 04/08/20
--- OUTSIDE RECORDS SUMMARY | 2025-01-26 09:04 | XMS_ITS | Encounter Summary ---
Author Organization [facility] Address [address] [place] [address] Care Team Providers Care Instrument Panel Assembler Name Role Phone Unavailable Primary Care Provider Unavailabl e Encounter Details Date Type Department Care Team (Late st Contact Info) Description 01/19/2025 Clinisync Result Encounter NOMS External Department Unsolicited Bruce Cervantes [address] [place] [address] Social History Tobacco Use Types Packs/Day Years [...] EDT Routine [facility] [place] [facility] [address] [place] [phone] Bruce Cervantes DO [address] [place] [address] [place] [address] documented as of this encounter Procedures Procedure Name Priority Date/Time Associated Diagnosis Comments US OB BPP W NON-STRESS 01/19/2025 2:26 PM EDT documented in this encounter Results * US OB BPP W NON-STRESS (01/19/2025 2:26 PM EDT) Anatomical Region Laterality Modality Other 01/19/2025 2:26 PM EDT Narrative 01/19/2025 2:29 PM EDT [place] [id number] Ultrasound Report Signed Patient: ESTEFANIA CEDEÑO MR#: [id number] : 1995 Acct:[id number] Age/Sex: 29 / F ADM Date: 01/19/25 Loc: US Attending Dr: Bruce Cervantes D.O. Ordering Physician: Bruce Cervantes D.O. Date of Service: 01/19/25 Procedure(s): US OB BPP w non-stress Accession Number(s): [id number] cc: Bruce Cervantes D.O.; Physician,Non-Staff Roberto The [address] [address] Patient Name: ESTEFANIA CEDEÑO MRN: [facility]:[id number] date: 1995 Sex: F Assigned Patient Location: [facility] Current Patient Location: Accession/Order Number: [id number] Exam Date: 01/19/2025 09:10 Report Date: 01/19/2025 [...] Saez M.D. 01/19/2025 2:26 PM Dictation Location: [facility] Electronically authenticated by: [id number] Y Date: 01/19/2025 14:26 Dictated By: Carroll Saez D.O. Signed By: 01/19/25 1429 DD/ 142 TD/TT: Admitting Interviewer: Procedure Note Radiology, Radiologist, - 01/19/[address] [address] Ultrasound Report Signed Patient: ESTEFANIA CEDEÑO JMR#: [id number] : 1995Acct:[id number] Age/Sex: 29 / FADM Date: 01/19/25 Loc: US Attending Dr: Bruce Cervantes D.O. Ordering Physician: Bruce Cervantes D.O. Date of Service: 01/19/25 Procedure(s): US OB BPP w non-stress Accession Number(s): [id number] cc: Bruce Cervantes D.O.; Physician,Non-Staff Roberto The [place] [address] Patient Name: ESTEFANIA CEDEÑO MRN: [id number] date: 1995 Sex: F Assigned Patient Location: [facility] Current Patient Location: Accession/Order Number: [id number] Exam Date: 01/19/2025 09:10 Report Date: 01/19/2025 [...] Saez M.D. 01/19/2025 2:26 PM Dictation Location: [employer] Electronically authenticated by: [id number] Y Date: 4:26 Dictated By: Carroll Saez D.O. Signed By:01/19/25 1429 DD/ 142 TD/TT: Admitting Interviewer: us Bruce Cervantes DO [facility] Final Result documented in this encounter Visit Diagnoses Not on filedocumented in this encounter
--- OUTSIDE RECORDS SUMMARY | 2025-01-26 09:04 | XMS_ITS | Encounter Summary ---
Author Organization [facility] Address [address] [place] [address] Care Team Providers Care Ratoprinter Name Role Phone Unavailable Primary Care Provider Unavailabl e Encounter Details Date Type Department Care Team (Late st Contact Info) Description 10/06/2024 Orders Only DENISE CESAR [address] [place] [address] Maria Elena Dolan MA Social History [...] 10:10 AM EDT Routine DENISE CESAR [address] [place] [address] Aditya Cervantes DO [facility] [place] [address] documented as of this encounter Procedures Procedure [...]
--- OUTSIDE RECORDS SUMMARY | 2025-01-26 09:04 | XMS_ITS | Encounter Summary ---
Author Organization [facility] Address [address] [place] [address] Care Team Providers Care Airline Security Representative Name Role Phone Unavailable Primary Care Provider Unavailabl e Encounter Details Date Type Department Care Team (Late st Contact Info) Description 08/04/2024 Abstract DENISE CESAR [facility] [place] [phone] Aditya Cervantes, DO [address] [place] [address], [facility]11 Social History [...] 02/06/2025 10:10 AM EDT Routine DENISE CESAR [facility] [place] [phone] Aditya Cervantes, DO [address], [facility]11 documented as of this encounter Visit Diagnoses Not on filedocumented in this encounter
--- OUTSIDE RECORDS SUMMARY | 2025-01-26 09:04 | XMS_ITS | Encounter Summary ---
Author Organization [facility] Address [address] [place] [address] Care Team Providers Care Rural Carrier Associate Name Role Phone Unavailable Primary Care Provider Unavailabl e Encounter Details Date Type Department Care Team (Late st Contact Info) Description 08/19/2023 Clinisync Result Encounter NOMS External Department Unsolicited Bruce Cervantes, DO [address] [place] [address] Social History Tobacco Use Types Packs/Day Years [...] EDT Routine [facility] [place] [facility] [address] [facility] [place] [address] Bruce Cervantes DO [address] [place] [address] documented as of this encounter Procedures Procedure Name Priority Date/Time Associated Diagnosis Comments US OB CERVICAL LENGTH 08/19/2023 11:33 AM EDT documented in this encounter Results * US OB CERVICAL LENGTH (08/19/2023 11:33 AM EDT) Anatomical Region Laterality Modality Other 08/19/2023 11:3 3 AM EDT Narrative 08/19/2023 11:[place] [address] Ultrasound Report Signed Patient: ESTEFANIA CEDEÑO MR#: [id number] : 1995 Acct:[id number] Age/Sex: 28 / F ADM Date: 08/19/23 Loc: NOMS Attending Dr: Bruce Cervantes D.O. Ordering Physician: Bruce Cervantes D.O. Date of Service: 08/19/23 Procedure(s): US OB cervical length Accession Number(s): [id number] cc: Bruce Cervantes D.O.; Physician,Non-Staff Roberto [place] [id number] Patient Name: ESTEFANIA CEDEÑO MRN: [id number] date: 1995 Sex: F Assigned Patient Location: [facility] Current Patient Location: [facility] Accession/Order Number: [id number] Exam Date: 08/19/2023 10:08 Report Date: 08/19/2023 [...] Signed By: 08/19/23 1135 DD/ 1133 TD/TT: Soft Crab Shedder: Procedure Note Radiology, Radiologist, MD - 08/19/2023 [place] [address] Ultrasound Report Signed Patient: TRINITY CEDEÑO#: [id number] : 1995Acct:[id number] Age/Sex: Date: 08/19/23 Loc: NOMS Attending Dr: Bruce Cervantes D.O. Ordering Physician: Bruce Cervantes D.O. Date of Service: 08/19/23 Procedure(s): US OB cervical length Accession Number(s): [id number] cc: Bruce Cervantes D.O.; Physician,Non-Staff Roberto The [place] [address] Patient Name: ESTEFANIA CEDEÑO MRN: [id number] date: 1995 Sex: F Assigned Patient Location: [facility] Current Patient Location: [facility] Accession/Order Number: [id number] Exam Date: 08/19/2023 10:08 Report Date: 08/19/2023 [...] M.D. Signed By:08/19/23 1135 DD/ 1133 TD/TT: Soft Crab Shedder: us Bruce Billy DO [facility] Final Result documented in this encounter Visit Diagnoses Not on filedocumented in this encounter
--- OUTSIDE RECORDS SUMMARY | 2025-01-26 09:04 | XMS_ITS | Encounter Summary ---
Author Organization [facility] Address [address] [place] [address] Care Team Providers Care Rag Willow Operator Name Role Phone Unavailable Primary Care Provider Unavailabl e Encounter Details Date Type Department Care Team (Late st Contact Info) Description 11/28/2024 Abstract DENISE CESAR [facility] [place] [phone] Aidtya Cervantes, DO [address], [facility]11 Social History Tobacco Use Types [...] 02/06/2025 10:10 AM EDT Routine DENISE CESAR [facility] [place] [phone] Aditya Cervantes, DO [address], [facility]11 documented as of this encounter Visit Diagnoses Not on filedocumented in this encounter
--- OUTSIDE RECORDS SUMMARY | 2025-01-26 09:04 | XMS_ITS | Encounter Summary ---
Author Organization [facility] Address [address] [place] [address] Care Team Providers Care Label Cutter Name Role Phone Unavailable Primary Care Provider Unavailabl e Encounter Details Date Type Department Care Team (Late st Contact Info) Description 12/14/2023 Abstract NOMJean Carlos CESAR [address] [facility] [place] [phone] Trini Aquino LPN 102 [facility] Merissa VENTURA [facility]11 Social History Tobacco Use Types Packs/Day Years [...] 10:10 AM EDT Routine DENISE CESAR [address] [facility] [place] [phone] Aditya Cervantes DO [address] [facility] [address] [place] [phone] documented as of this encounter Visit Diagnoses Not on filedocumented in this encounter
--- OUTSIDE RECORDS SUMMARY | 2025-01-26 09:04 | XMS_ITS | Encounter Summary ---
Author Organization [facility] Address [address] [place] [address] Care Team Providers Care Manager Local Name Role Phone Unavailable Primary Care Provider Unavailabl e Encounter Details Date Type Department Care Team (Late st Contact Info) Description 12/15/2023 Abstract NOMJean Carlos CESAR [address] [facility] [place] [phone] Trini Aquino LPN 102 [facility] Merissa V[place]URA [facility]11 Social History Tobacco Use Types Packs/Day [...] 10:10 AM EDT Routine DENISE CESAR [address] [facility] [place] [phone] Aditya Cervantes DO [address] [facility] [address] [place] [phone] documented as of this encounter Visit Diagnoses Not on filedocumented in this encounter
--- OUTSIDE RECORDS SUMMARY | 2025-01-26 09:04 | XMS_ITS | Encounter Summary ---
Author Organization [facility] Address [address] [place] [address] Care Team Providers Care Head Of Marketing Name Role Phone Unavailable Primary Care Provider Unavailabl e Encounter Details Date Type Department Care Team (Late st Contact Info) Description 06/11/2023 Clinisync Result Encounter NOMS External Department Unsolicited Bruce Cervantes, DO [address] [place] [address] Social History Tobacco Use Types Packs/Day Years [...] AM EDT Routine [facility] [address] [facility] [place] [phone] Bruce Cervantes DO [address] [place] [address] documented as of this encounter Procedures Procedure Name Priority Date/Time Associated Diagnosis Comments US OB TRANSVAGINAL 06/11/2023 11 :38 AM EST documented in this encounter Results * US OB TRANSVAGINAL (06/11/2023 11:38 AM EST) Anatomical Region Laterality Modality Other 06/11/2023 11:3 8 AM EST Narrative 06/11/2023 11:41 [place] [address] Ultrasound Report Signed Patient: ESTEFANIA CEDEÑO MR#: [id number] : 1995 Acct:[id number] Age/Sex: 28 / F ADM Date: 06/11/23 Loc: US Attending Dr: Bruce Cervantes D.O. Ordering Physician: Bruce Cervantes D.O. Date of Service: 06/11/23 Procedure(s): US OB transvaginal Accession Number(s): [id number] cc: Bruce Cervantes D.O.; Physician,Non-Staff Roberto [place] [id number] Patient Name: ESTEFANIA CEDEÑO MRN: [id number] date: 1995 Sex: F Assigned Patient Location: US Current Patient Location: US Accession/Order Number: [id number] Exam Date: 06/11/2023 10:42 Report Date: 06/11/2023 [...] Signed By: 06/11/23 1141 DD/ 1138 TD/TT: Soft Hat Binder: Procedure Note Radiology, Radiologist, MD - 06/11/2023 [place] [address] Ultrasound Report Signed Patient: TRINITY CEDEÑO#: [id number] : 1995Acct:[id number] Age/Sex: 28 / FADM Date: 06/11/23 Loc: US Attending Dr: Bruce Cervantes D.O. Ordering Physician: Bruce Cervantes D.O. Date of Service: 06/11/23 Procedure(s): US OB transvaginal Accession Number(s): [id number] cc: Bruce Cervantes D.O.; Physician,Non-Staff Roberto The [place] [id number] Patient Name: ESTEFANIA CEDEÑO MRN: [facility]:[id number] date: 1995 Sex: F Assigned Patient Location: US Current Patient Location: US Accession/Order Number: [id number] Exam Date: 06/11/2023 10:42 Report Date: 06/11/2023 [...] M.D. Signed By:06/11/23 1141 DD/ 1138 TD/TT: Soft Hat Binder: us Bruce Cervantes DO [facility] Final Result documented in this encounter Visit Diagnoses Not on filedocumented in this encounter
--- OUTSIDE RECORDS SUMMARY | 2025-01-26 09:04 | XMS_ITS | Encounter Summary ---
Author Organization [facility] Address [address] [place] [address] Care Team Providers Care Record Clerk Salesperson Name Role Phone Unavailable Primary Care Provider Unavailabl e Encounter Details Date Type Department Care Team (Late st Contact Info) Description 01/03/2024 Abstract DENISE CESAR [address] [facility] [place] [phone] Aditya Cervantes, DO [address], [facility]11 Social History Tobacco Use Types Packs/Day Years [...] 10:10 AM EDT Routine DENISE CESAR [address] [facility] [place] [phone] Aditya Cervantes, DO [address] [place], [place] [address] documented as of this encounter Visit Diagnoses Not on filedocumented in this encounter
--- OUTSIDE RECORDS SUMMARY | 2025-01-26 09:04 | XMS_ITS | Encounter Summary ---
Author Organization [facility] Address [address] [place] [address] Care Team Providers Care Size Roller Operator Name Role Phone Unavailable Primary Care Provider Unavailabl e Encounter Details Date Type Department Care Team (Late st Contact Info) Description 01/23/2025 Bamboo flowsheet DENISE CESAR [address] [facility] [place] [address] Latasha Padgett PA [address] [facility] [address] [place], [facility]11 Social History Tobacco Use Types Packs/Day [...] Routine NOMJean Carlos CESAR [address] [facility] [place] [phone] Aditya Cervantes DO [address] [facility] [address] [place], [facility]11 documented as of this encounter Visit Diagnoses Not on filedocumented in this encounter
--- OUTSIDE RECORDS SUMMARY | 2025-01-26 09:04 | XMS_ITS | Encounter Summary ---
Author Organization [facility] Address [address] [place] [address] Care Team Providers Care Product Manufacturing Professional Name Role Phone Unavailable Primary Care Provider Unavailabl e Encounter Details Date Type Department Care Team (Late st Contact Info) Description 06/23/2023 Clinisync Result Encounter NOMS External Department Unsolicited Bruce Cervantes, DO [address] [place] [address] Social History Tobacco Use Types Packs/Day Years [...] AM EDT Routine [facility] [address] [facility] [place] [phone] Bruce Cervantes DO [address] [place] [address] documented as of this encounter Procedures Procedure Name Priority Date/Time Associated Diagnosis Comments US OB TRANSVAGINAL 06/23/2023 10 :07 AM EST documented in this encounter Results * US OB TRANSVAGINAL (06/23/2023 10:07 AM EST) Anatomical Region Laterality Modality Other 06/23/2023 10:0 7 AM EST Narrative 06/23/2023 10:09 [place] [address] Ultrasound Report Signed Patient: ESTEFANIA CEDEÑO MR#: [id number] : 1995 Acct:[id number] Age/Sex: 28 / F ADM Date: 06/23/23 Loc: NOMS Attending Dr: Bruce Cervantes D.O. Ordering Physician: Bruce Cervantes D.O. Date of Service: 06/23/23 Procedure(s): US OB transvaginal Accession Number(s): [id number] cc: Bruce Cervantes D.O.; Physician,Non-Staff Roberto The [place] [id number] Patient Name: ESTEFANIA CEDEÑO MRN: [id number] date: 1995 Sex: F Assigned Patient Location: [facility] Current Patient Location: [facility] Accession/Order Number: [id number] Exam Date: 06/23/2023 09:30 Report Date: 06/23/2023 [...] Signed By: 06/23/23 1009 DD/ 1007 TD/TT: Deputy Sheriff Custody: Procedure Note Radiology, Radiologist, - 08/04/[address] [address] Ultrasound Report Signed Patient: BETTY CEDEÑOR#: [id number] : 1995Acct:[id number] Age/Sex: 28 / FADM Date: 06/23/23 Loc: NOMS Attending Dr: Bruce Cervantes D.O. Ordering Physician: Bruce Cervantes D.O. Date of Service: 06/23/23 Procedure(s): US OB transvaginal Accession Number(s): [id number] cc: Bruce Cervantes D.O.; Physician,Non-Staff Roberto The [place] [id number] Patient Name: ESTEFANIA CEDEÑO MRN: [id number] date: 1995 Sex: F Assigned Patient Location: [facility] Current Patient Location: [facility] Accession/Order Number: [id number] Exam Date: 06/23/2023 09:30 Report Date: 06/23/2023 [...] M.D. Signed By:06/23/23 1009 DD/ 1007 TD/TT: Deputy Sheriff Custody: us Bruce Cervantes DO [facility] Final Result documented in this encounter Visit Diagnoses Not on filedocumented in this encounter
--- OUTSIDE RECORDS SUMMARY | 2025-01-26 09:04 | XMS_ITS | Encounter Summary ---
Author Organization [facility] Address [address] [place] [address] Care Team Providers Care Keyboarding Teacher Name Role Phone Unavailable Primary Care Provider Unavailabl e Encounter Details Date Type Department Care Team (Late st Contact Info) Description 04/20/2023 Abstract NOMJean Carlos CESAR [address] [place] [phone] Trini Aquino LPN 102 [facility] Merissa [place] [facility]11 Social History Tobacco Use Types Packs/Day Years [...] 10:10 AM EDT Routine DENISE CESAR [address] [place] [phone] Aditya Cervantes DO [address] [facility] [address] [place] [phone] documented as of this encounter Visit Diagnoses Not on filedocumented in this encounter
--- OUTSIDE RECORDS SUMMARY | 2025-01-26 09:04 | XMS_ITS | Encounter Summary ---
Author Organization [facility] Address [address] [place] [address] Care Team Providers Care Multigraph Operator Name Role Phone Unavailable Primary Care Provider Unavailabl e Encounter Details Date Type Department Care Team (Late st Contact Info) Description 09/16/2023 Clinisync Result Encounter NOMS External Department Unsolicited Bruce Cervantes, DO [address] [place] [address] Social History Tobacco Use Types Packs/Day Years [...] EDT Routine NOMJean Carlos [place] OBGYN [address] [place] [phone] Bruce Cervantes DO [address] [place] [address] documented as of this encounter Procedures Procedure Name Priority Date/Time Associated Diagnosis Comments US OB FOLLOW UP 09/16/2023 11:19 AM EDT documented in this encounter Results * US OB FOLLOW UP (09/16/2023 11:19 AM EDT) Anatomical Region Laterality Modality Radiographic Mari ging 09/16/2023 11:1 9 AM EDT Narrative 09/16/2023 11:22 [place] [address] Ultrasound Report Signed Patient: ESTEFANIA CEDEÑO MR#: [id number] : 1995 Acct:[id number] Age/Sex: 28 / F ADM Date: 09/16/23 Loc: NOMS Attending Dr: Bruce Cervantes D.O. Ordering Physician: Bruce Cervantes D.O. Date of Service: 09/16/23 Procedure(s): US OB follow up Accession Number(s): [id number] cc: Bruce Cervantes D.O.; Physician,Non-Staff Roberto The [place] [id number] Patient Name: ESTEFANIA CEDEÑO MRN: [id number] date: 1995 Sex: F Assigned Patient Location: [facility] Current Patient Location: [facility] Accession/Order Number: [id number] Exam Date: 09/16/2023 09:58 Report Date: 09/16/2023 [...] Signed By: 09/16/23 1122 DD/ 1119 TD/TT: Forest Ranger: Procedure Note Radiology, Radiologist, - 09/16/2023 The [place] [id number] Ultrasound Report Signed Patient: TRINITY CEDEÑO#: [id number] : 1995Acct:[id number] Age/Sex: 28 / FADM Date: 09/16/23 Loc: NOMS Attending Dr: Bruce Cervantes D.O. Ordering Physician: Bruce Cervantes D.O. Date of Service: 09/16/23 Procedure(s): US OB follow up Accession Number(s): [id number] cc: Bruce Cervantes D.O.; Physician,Non-Staff Roberto [place] [address] Patient Name: ESTEFANIA CEDEÑO MRN: [id number] date: 1995 Sex: F Assigned Patient Location: [facility] Current Patient Location: [facility] Accession/Order Number: [id number] Exam Date: 09/16/2023 09:58 Report Date: 09/16/2023 [...] M.D. Signed By:09/16/23 1122 DD/ 1119 TD/TT: Forest Ranger: us Bruce Cervantes DO IMG XR PROCEDURES Final Result documented in this encounter Visit Diagnoses Not on filedocumented in this encounter
--- OUTSIDE RECORDS SUMMARY | 2025-01-26 09:04 | XMS_ITS | Encounter Summary ---
Author Organization [facility] Address [address] [place] [address] Care Team Providers Care Computer Analyst Supervisor Name Role Phone Unavailable Primary Care Provider Unavailabl e Encounter Details Date Type Department Care Team (Late st Contact Info) Description 10/31/2024 Abstract DENISE CESAR [facility] [place] [phone] Aditya Cervantes, DO [address], [facility]11 Social History Tobacco [...] 02/06/2025 10:10 AM EDT Routine DENISE CESAR [facility] [place] [phone] Aditya Cervantes, DO [address], [facility]11 documented as of this encounter Visit Diagnoses Not on filedocumented in this encounter
--- OUTSIDE RECORDS SUMMARY | 2025-01-26 09:04 | XMS_ITS | Encounter Summary ---
Author Organization [facility] Address [address], [address] [place] [address] Care Team Providers Care Glaze Maker Name Role Phone Billie Sharpe ART FRAMING MANAGER - WIPER BLENDER Primary Care Provider Reason for Referral * Other (Routine) - Closed Specialty Diagnoses / Procedures Referred By Ryder choi Referred To Contact Radiology Diagnoses Abdominal pain, unspecified abdominal location Abdominal bloating Procedures US PELVIS COMPLETE NON-OB TRANSABDOMINAL AND TRANSVAGINAL Aditya Cervantes MD [address] [place] [place] [address] Phone: tel: Referral ID Status Reason Start Date Expiration Date Visits Re quested Visits Authorized [id number] Closed 03/24/2023 03/23/2024 1 1 Encounter Details Date Type Department Care Team (Late st Contact Info) Description 03/24/2023 Transcribe Orders [facility] Pre Access [address] [place] [address] Aditya Cervantes MD [facility] [place] [address] Abdominal pain, unspecified abdominal location (Primary Dx); [...] pain documented in this encounter Care Teams Glaze Maker Relationship Specialty Start Date End Date Billie Sharpe, ART FRAMING MANAGER - WIPER BLENDER PCP - General Family Medicine 04/08/20 documented as of this encounter
--- OUTSIDE RECORDS SUMMARY | 2025-01-26 09:04 | XMS_ITS | Encounter Summary ---
Author Organization [facility] Address [address], [address] [place] [address] Care Team Providers Care Mental Health Professional Name Role Phone Billie Sharpe REVENUE SETTLEMENTS ADMINISTRATOR - BUTTONHOLE FACER Primary Care Provider Reason for Referral * Imaging (Routine) - Closed Specialty Diagnoses / Procedures Referred By Ryder choi Referred To Contact Radiology Diagnoses Abdominal pain, unspecified abdominal location Pelvic pain in female Procedures CT ABDOMEN PELVIS W WO CONTRAST Additional Contrast? None Aditya Cervantes MD [address] [place] [address] Phone: tel: Referral ID Status Reason Start Date Expiration Date Visits Re quested Visits Authorized [id number] Closed 04/23/2023 04/22/2024 1 1 Encounter Details Date Type Department Care Team (Late st Contact Info) Description 04/23/2023 Transcribe Orders Trent Pre Access [address] [place] [address] Aditya Cervantes MD [facility] [place] [address] Abdominal pain, unspecified abdominal location [...] organs documented in this encounter Care Teams Mental Health Professional Relationship Specialty Start Date End Date Billie Sharpe APRN - BUTTONHOLE FACER PCP - General Family Medicine 04/08/20 documented as of this encounter
--- OUTSIDE RECORDS SUMMARY | 2025-01-26 09:04 | XMS_ITS | Encounter Summary ---
Author Organization [facility] Address [address] [place] [address] Care Team Providers Care Sweetbread Trimmer Name Role Phone Unavailable Primary Care Provider Unavailabl e Encounter Details Date Type Department Care Team (Late st Contact Info) Description 01/11/2024 Abstract DENISE CESAR [address] [facility] [place] [phone] Aditya Cervantes, DO [address] [place], [facility]11 Social History Tobacco [...] 10:10 AM EDT Routine DENISE CESAR [address] [facility] [place] [phone] Aditya Cervantes, DO [address], [place] [phone] documented as of this encounter Visit Diagnoses Not on filedocumented in this encounter
--- OUTSIDE RECORDS SUMMARY | 2025-01-26 09:04 | XMS_ITS | Encounter Summary ---
Author Organization [facility] Address [address], [address] [place] [address] Care Team Providers Care Relay Checker Name Role Phone Dell Billie Jamal GENERAL MEDICAL PRACTITIONER - AMMONIA REFRIGERATION TECHNICIAN Primary Care Provider Reason for Referral * Imaging (Routine) - Closed Specialty Diagnoses / Procedures Referred By Contac t Referred To Contact Radiology Diagnoses Menstrual problem Procedures US NON OB TRANSVAGINAL Dana Akins MD [address] [place] [address] Phone: tel: fax: [facility] Ultrasound [address] [place] [address] Phone: tel: Referral ID Status Reason Start Date Expiration Date Visits Re quested Visits Authorized [id number] Closed 08/15/2020 08/15/2021 1 1 * Imaging (Routine) - Closed Specialty Diagnoses / Procedures Referred By Contac t Referred To Contact Radiology Diagnoses Menstrual problem Procedures US PELVIS COMPLETE Dana Akins MD [address] [place] [address] Phone: tel: fax: [facility] Ultrasound [address] [place] [address] Phone: tel: Referral ID Status Reason Start Date Expiration Date Visits Re quested Visits Authorized [id number] Closed 08/15/2020 08/15/2021 1 1 Encounter Details Date Type Department Care Team (Latest Contact Info) Description 08/15/2020 Transcribe Orders Trent Pre Access [address] [place] [address] Dana Akins MD [address] [place] [address] Menstrual problem (Primary Dx) Social History Tobacco [...] tract documented in this encounter Care Teams Relay Checker Relationship Specialty Start Date End Date Billie Sharpe, GENERAL MEDICAL PRACTITIONER - AMMONIA REFRIGERATION TECHNICIAN PCP - General Family Medicine 04/08/20 documented as of this encounter
--- OUTSIDE RECORDS SUMMARY | 2025-01-26 09:04 | XMS_ITS | Encounter Summary ---
Author Organization [facility] Address [address] [place] [address] Care Team Providers Care Headlight Assembler Name Role Phone Unavailable Primary Care Provider Unavailabl e Encounter Details Date Type Department Care Team (Late st Contact Info) Description 01/09/2025 Abstract DENISE CESAR [facility] [place] [phone] Aditya Cervantes, DO [address], [facility]11 Social History Tobacco Use Types Packs/Day [...] 02/06/2025 10:10 AM EDT Routine DENISE CESAR [facility] [place] [phone] Aditya Cervantes, DO [address], [facility]11 documented as of this encounter Visit Diagnoses Not on filedocumented in this encounter
--- OUTSIDE RECORDS SUMMARY | 2025-01-26 09:04 | XMS_ITS | Encounter Summary ---
Author Organization [facility] Address [address] [place] [address] Care Team Providers Care Hybrid Technologist Name Role Phone Unavailable Primary Care Provider Unavailabl e Encounter Details Date Type Department Care Team (Late st Contact Info) Description 08/19/2023 Clinisync Result Encounter NOMS External Department Unsolicited Bruce Cervantes, DO [address] [place] [address] Social History Tobacco Use Types Packs/Day Years [...] EDT Routine [facility] [place] OBGYN [address] [facility] [place] [address] Bruce Cervantes DO [address] [place] [address] documented as of this encounter Procedures Procedure Name Priority Date/Time Associated Diagnosis Comments US OB ANATOMY 08/19/2023 11:33 AM EDT documented in this encounter Results * US OB ANATOMY (08/19/2023 11:33 AM EDT) Anatomical Region Laterality Modality Other 08/19/2023 11:3 3 AM EDT Narrative 08/19/2023 11:36 AM EDT [place] [id number] Ultrasound Report Signed Patient: ESTEFANIA CEDEÑO MR#: [id number] : 1995 Acct:[id number] Age/Sex: 28 / F ADM Date: 08/19/23 Loc: NOMS Attending Dr: Bruce Cervantes D.O. Ordering Physician: Bruce Cervantes D.O. Date of Service: 08/19/23 Procedure(s): US OB anatomy Accession Number(s): [id number] cc: Bruce Cervantes D.O.; Physician,Non-Staff Roberto [address] [address] Patient Name: ESTEFANIA CEDEÑO MRN: [id number] date: 1995 Sex: F Assigned Patient Location: [facility] Current Patient Location: [facility] Accession/Order Number: [id number] Exam Date: 08/19/2023 10:08 Report Date: 08/19/2023 [...] Signed By: 08/19/23 1136 DD/ 1133 TD/TT: Wood Caulker: Procedure Note Radiology, Radiologist, MD - 08/19/2023 [place] [address] Ultrasound Report Signed Patient: TRINITY CEDEÑO#: [id number] : 1995Acct:[id number] Age/Sex: / FADM Date: 08/19/23 Loc: NOMS Attending Dr: Bruce Cervantes D.O. Ordering Physician: Bruce Cervantes D.O. Date of Service: 08/19/23 Procedure(s): US OB anatomy Accession Number(s): [id number] cc: Bruce Cervantes D.O.; Physician,Non-Staff MSirena The [place] [id number] Patient Name: ESTEFANIA CEDEÑO MRN: [id number] date: 1995 Sex: F Assigned Patient Location: [facility] Current Patient Location: [facility] Accession/Order Number: [id number] Exam Date: 08/19/2023 10:08 Report Date: 08/19/2023 [...] M.D. Signed By:08/19/23 1136 DD/ 1133 TD/TT: Wood Caulker: us Bruce Billy DO [facility] Final Result documented in this encounter Visit Diagnoses Not on filedocumented in this encounter
--- OUTSIDE RECORDS SUMMARY | 2025-01-26 09:04 | XMS_ITS | Encounter Summary ---
Author Organization [facility] Address [address] [place] [address] Care Team Providers Care Line Runner Name Role Phone Unavailable Primary Care Provider Unavailabl e Encounter Details Date Type Department Care Team (Late st Contact Info) Description 01/09/2025 Abstract DENISE CESAR [facility] [place] [phone] Aditya Cervantes, DO [address], [facility]11 Social History Tobacco Use Types Packs/Day [...] 02/06/2025 10:10 AM EDT Routine DENISE CESAR [facility] [place] [phone] Aditya Cervantes, DO [address], [facility]11 documented as of this encounter Visit Diagnoses Not on filedocumented in this encounter
--- OUTSIDE RECORDS SUMMARY | 2025-01-26 09:04 | XMS_ITS | Encounter Summary ---
Author Organization [facility] Address [address] [place] [address] Care Team Providers Care Family Consumer Science Teacher Name Role Phone Unavailable Primary Care Provider Unavailabl e Encounter Details Date Type Department Care Team (Late st Contact Info) Description 12/15/2023 Clinisync Result Encounter [facility] External Department Unsolicited Bruce Cervantes, DO [address] [place] [address] Social History Tobacco Use Types Packs/Day Years [...] EDT Routine [facility] [place] [facility] [address] [place] [id number] Bruce Cervantes DO [address] [place] [address] documented as of this encounter Procedures Procedure Name Priority Date/Time Associated Diagnosis Comments US OB GROWTH 12/15/2023 12:01 PM EDT [facility] BOX TEST SENT OUT Routine 12/15/2023 11:10 AM EDT documented in this encounter Results * US OB GROWTH (12/15/2023 12:01 PM EDT) Anatomical Region Laterality Modality Other 12/15/2023 12:0 1 PM EDT Narrative 12/15/2023 12:04 [place] [address] Ultrasound Report Signed Patient: ESTEFANIA CEDEÑO MR#: [id number] : 1995 Acct:[id number] Age/Sex: 28 / F ADM Date: 12/15/23 Loc: [facility] Attending Dr: Bruce Cervantes D.O. Ordering Physician: Bruce Cervantes D.O. Date of Service: 12/15/23 Procedure(s): US OB growth Accession Number(s): [id number] cc: Bruce Cervantes D.O.; Physician,Non-Staff [place] [address] Patient Name: ESTEFANIA CEDEÑO MRN: [id number] date: 1995 Sex: F Assigned Patient Location: [facility] Current Patient Location: [facility] Accession/Order Number: [id number] Exam Date: 12/15/2023 10:33 Report Date: 12/15/2023 [...] Dr. Cervantes was notified of findings by chief executive or managing director at time of imaging. Electronically authenticated by: ED KRUEGER Date: 12/15/2023 12:01 Dictated By: Ed Krueger M.D. Signed By: 12/15/23 1204 DD/ 1201 TD/TT: Product Management Consultant: Procedure Note Radiology, Radiologist, MD - 12/15/2023 [place] [address] Ultrasound Report Signed Patient: TRINITY CEDEÑO#: [id number] : 1995Acct:[id number] Age/Sex: 28 FADM Date: 12/15/23 Loc: [facility] Attending Dr: Bruce Cervantes D.O. Ordering Physician: Bruce Cervantes D.O. Date of Service: 12/15/23 Procedure(s): US OB growth Accession Number(s): [id number] cc: Bruce Cervantes D.O.; Physician,Non-Staff [place] [address] Patient Name: ESTEFANIA CEDEÑO MRN: [id number] date: 1995 Sex: F Assigned Patient Location: [facility] Current Patient Location: [facility] Accession/Order Number: [id number] Exam Date: 12/15/2023 10:33 Report Date: 12/15/2023 [...] Dr. Cervantes was notified of findings by chief executive or managing director at time of imaging. Electronically authenticated by: ED KRUEGER Date: 12/15/2023 12:01 Dictated By: Ed Krueger M.D. Signed By:12/15/23 1204 DD/ 1201 TD/TT: Product Management Consultant: us Bruce Billy DO [facility] Final Result * [facility] BOX TEST SENT OUT (12/15/2023 11:10 AM EDT) BOX TEST SENT OUT see scanned report [facility] 12/15/2023 11:1 0 AM EDT 12/16/2023 8:10 AM EDT Narrative [facility] - 12/19/2023 12:56 PM EDT Bruce Billy DO [facility] Final Result [facility] documented in this encounter Visit Diagnoses Not on filedocumented in this encounter
--- OUTSIDE RECORDS SUMMARY | 2025-01-26 09:04 | XMS_ITS | Encounter Summary ---
Author Organization [facility] Address [address] [place] [address] Care Team Providers Care [employer] Center Director Name Role Phone Unavailable Primary Care Provider Unavailabl e Reason for Visit * Reason Onset Date Comments Med Refill 01/18/2025 Encounter Details Date Type Department Care Team (Late Contact Info) Description 01/18/2025 Refill [facility] [address] [place] [address] Cammie Polo MA [address] [place] [address] [place] [address] Elevated glucose tolerance test; 28 weeks gestation of ([facility]); Gestational diabetes mellitus (GDM), antepartum, gestational diabetes method of control unspecified ([facility]) Social History Tobacco Use Types Packs/Day Years [...] AM EDT Routine [facility] [address] [place] [address] Aditya Cervantes, [address] [place] [address] documented as of this encounter Visit Diagnoses Diagnosis Elevated glucose tolerance test Impaired glucose tolerance test 28 weeks gestation of ([facility]) Gestational diabetes mellitus (GDM), antepartum, gestational diabetes method of control unspecified ([facility]) documented in this encounter
--- OUTSIDE RECORDS SUMMARY | 2025-01-26 09:04 | XMS_ITS | Encounter Summary ---
Author Organization [facility] Address [address] [place] [address] Care Team Providers Care Drafter Directional Survey Name Role Phone Unavailable Primary Care Provider Unavailabl e Encounter Details Date Type Department Care Team (Late st Contact Info) Description 10/28/2023 Clinisync Result Encounter [facility] External Department Unsolicited Bruce Cervantes, DO [address] [place] [address] Social History Tobacco Use Types Packs/Day Years [...] EDT Routine [facility] [place] [facility] [address] [place] [address] Bruce Cervantes DO [address] [place] [address] documented as of this encounter Procedures Procedure Name Priority Date/Time Associated Diagnosis Comments US OB GROWTH 10/28/2023 9:56 AM EDT documented in this encounter Results * US OB GROWTH (10/28/2023 9:56 AM EDT) Anatomical Region Laterality Modality Other 10/28/2023 9:56 AM EDT Narrative 10/28/2023 9:59 [place] [address] Ultrasound Report Signed Patient: ESTEFANIA CEDEÑO MR#: [id number] : 1995 Acct:[id number] Age/Sex: 28 / F ADM Date: 10/28/23 Loc: US Attending Dr: Bruce Cervantes D.O. Ordering Physician: Bruce Cervantes D.O. Date of Service: 10/28/23 Procedure(s): US OB growth Accession Number(s): [id number] cc: Bruce Cervantes D.O.; Physician,Non-Staff Roberto [place] [id number] Patient Name: ESTEFANIA CEDEÑO MRN: [id number] date: 1995 Sex: F Assigned Patient Location: US Current Patient Location: US Accession/Order Number: [id number] Exam Date: 10/28/2023 08:55 Report Date: 10/28/2023 [...] Kurt Stone M.D. Signed By: 10/28/2359 DD/ 5 TD/TT: Vp Packaging: Procedure Note Radiology, Radiologist, - 10/28/2023 [place] [address] Ultrasound Report Signed Patient: TRINITY CEDEÑO#: [id number] : 1995Acct:[id number] Age/Sex: Date: 10/28/23 Loc: US Attending Dr: Bruce Cervantes D.O. Ordering Physician: Bruce Cervantes D.O. Date of Service: 10/28/23 Procedure(s): US OB growth Accession Number(s): [id number] cc: Bruce Cervantes D.O.; Physician,Non-Staff Roberto The [place] [address] Patient Name: ESTEFANIA CEDEÑO MRN: [id number] date: 1995 Sex: F Assigned Patient Location: US Current Patient Location: US Accession/Order Number: [id number] Exam Date: 10/28/2023 08:55 Report Date: 10/28/2023 [...] 09:56 Dictated By: Kurt Stone M.D. Signed By:10/28/2359 DD/ TD/TT: Vp Packaging: us Bruce Cervantes DO [facility] Final Result documented in this encounter Visit Diagnoses Not on filedocumented in this encounter
--- OUTSIDE RECORDS SUMMARY | 2025-01-26 09:04 | XMS_ITS | Encounter Summary ---
Author Organization [facility] Address [address] [place] [address] Care Team Providers Care Clearing Inspector Name Role Phone Unavailable Primary Care Provider Unavailabl e Encounter Details Date Type Department Care Team (Late st Contact Info) Description 12/23/2023 Clinisync Result Encounter [facility] External Department Unsolicited Bruce Cervantes, DO [address] [place] [address] Social History Tobacco Use Types Packs/Day Years [...] EDT Routine [facility] [place] [facility] [address] [place] [address] Bruce Cervantes DO [address] [place] [address] documented as of this encounter Procedures Procedure Name Priority Date/Time Associated Diagnosis Comments US OB BPP W NON-STRESS 12/23/2023 10:41 AM EDT documented in this encounter Results * US OB BPP W NON-STRESS (12/23/2023 10:41 AM EDT) Anatomical Region Laterality Modality Other 12/23/2023 10:4 1 AM EDT Narrative 12/23/2023 10:43 AM EDT The [address] [address] Ultrasound Report Signed Patient: ESTEFANIA CEDEÑO MR#: [id number] : 1995 Acct:[id number] Age/Sex: 28 / F ADM Date: 12/23/23 Loc: [facility] [address]: Bruce Cervantes D.O. Ordering Physician: Bruce Cervantes D.O. Date of Service: 12/23/23 Procedure(s): US OB BPP w non-stress Accession Number(s): [id number] cc: Bruce Cervantes D.O.; Physician,Non-Staff Roberto The [place] [id number] Patient Name: ESTEFANIA CEDEÑO MRN: [id number] date: 1995 Sex: F Assigned Patient Location: [facility] Current Patient Location: [facility] Accession/Order Number: [id number] Exam Date: 12/23/2023 10:00 Report Date: 12/23/2023 [...] Signed By: 12/23/23 1043 DD/ 1041 TD/TT: Energy Crop Farmer: Procedure Note Radiology, Radiologist, MD - 12/23/2023 The [place] [id number] Ultrasound Report Signed Patient: TRINITY CEDEÑO#: [id number] : 1995Acct:[id number] Age/Sex: 28 / FADM Date: 12/23/23 Loc: [facility] 254-[address]: Bruce Cervantes D.O. Ordering Physician: Bruce Cervantes D.O. Date of Service: 12/23/23 Procedure(s): US OB BPP w non-stress Accession Number(s): [id number] cc: Bruce Cervantes D.O.; Physician,Non-Staff Roberto The [place] [id number] Patient Name: ESTEFANIA CEDEÑO MRN: [id number] date: 1995 Sex: F Assigned Patient Location: [facility] Current Patient Location: [facility] Accession/Order Number: [id number] Exam Date: 12/23/2023 10:00 Report Date: 12/23/2023 [...] M.D. Signed By:12/23/23 1043 DD/ 1041 TD/TT: Energy Crop Farmer: us Bruce Cervantes DO [facility] Final Result documented in this encounter Visit Diagnoses Not on filedocumented in this encounter
--- NOTE | 2025-01-26 09:07 | US_ITS ---
The [place] [id number] Patient Name: TARA FLOREZ MRN: [id number] date: 1995 Sex: F Assigned Patient [facility]: [facility] Current Patient Location: Accession/Order Number: [id number] Exam Date: 01/26/2025 09:08 Report Date: 01/26/2025 11:00 At the request of: BRUCE CARD DO Procedure: US OB BPP w non-stress CLINICAL DATA: Hyperglycemia ULTRASOUND OB GROWTH COMPARISON: None There is a single live intrauterine gestation in cephalic presentation. There is cardiac and somatic activity with heart rate of 147 bpm. The amniotic fluid index measures 12.1 cm which is in normal range. The placenta is anterior. The following measurements were obtained: Biparietal diameter 8.6 cm 34 weeks 4 days 52% Head circumference 32.2 cm 36 weeks 2 days 64% Abdominal circumference 31.6 cm 35 weeks 3 days 82% Femur length 6.8 cm 35 weeks 1 day 59% The composite ultrasound age based on these measurements is 35 weeks 3 days +/- 2 weeks 3 days. The estimated date of delivery is 02/27/2025. The estimated date of delivery based on last menstrual period is 03/06/2025. The estimated weight is 5 lbs. 14 oz. +/- 14 ounces (73%) US/US OB BPP w non-stress IMPRESSION: SINGLE LIVE INTRAUTERINE GESTATION WITH ULTRASOUND AGE OF 35 WEEKS 3 DAYS. BIOPHYSICAL PROFILE: COMPARISON: 01/19/2025 FINDINGS: TONE: 1 or more episodes of activity extension and flexion of extremity or opening and closing of the hand [Y] 2/2 GROSS BODY MOVEMENTS: 3 or more discrete body or limb movements [Y] 2/2 BREATHING MOVEMENTS: 1 or more episodes of breathing lasting at least 30 seconds [Y] 2/2 DEE: A single deepest vertical pocket of amniotic fluid greater than 2 cm [Y] 2/2 DEE: 12.1 cm Total score: 01/05 IMPRESSION: NORMAL BIOPHYSICAL PROFILE. Impression dictated by: Lindsey Bright M.D. 01/26/2025 11:00 AM Dictation Location: [facility] Electronically authenticated by: [id number] Y Date: 01/26/2025 11:00
--- OUTSIDE RECORDS SUMMARY | 2025-01-26 09:10 | XMS_ITS | CCD ---
Author Organization [facility] Care Team Providers Care Mink Rancher Name Role Phone NO FAMILY PHYSICIAN, 837 Unavailable Unavail able FELIX GALVAN Unavailable Unavailable Miguel Holley Primary Care Provider Jackson Haas Primary Care Provider Miguel Holley Primary Care Provider Miguel Holley Primary Care Provider [phone] Miguel Holley CNP Primary Care Provider [employer] ASSOCIATE CIVIL ENGINEER - DIANELYS, Miguel Berry Primary Care Provider MIGUEL HOLLEY Referring Unavailable MIGUEL HOLLEY Primary Care Unavailable [employer] ASSOCIATE CIVIL ENGINEER - DIANELYS, Miguel Berry Primary Care Provider [employer] ASSOCIATE CIVIL ENGINEER - DIANELYS, Miguel Berry Primary Care Provider Shona Lucio Primary Care Physician Yeison Holley ASSOCIATE CIVIL ENGINEER - ESTHETICIAN MAKEUP ARTIST, Miguel Berry Primary Care Provider [employer] ASSOCIATE CIVIL ENGINEER - Miguel IVORY Primary Care Provider Unavailable Primary Care Provider UnavailADITYA Hernandez Referring Unavailable MIGUEL HOLLEY Primary Care Unavailable BILLY, ADITYA Attending Unavailable BILLYBOBBYY Attending Unavailable DAYRON, LATASHA Attending Unavailable DAYRON, LATASHA Attending Unavailable DAYRON, LATASHA Attending Unavailable BILLY, ADITYA Attending Unavailable BILLY, ADITYA Attending Unavailable DAYRON, LATASHA Attending Unavailable BILLY, ADITYA Referring Unavailable BILLY, ADITYA Attending Unavailable DAYRON, LATASHA Attending Unavailable DAYRON, LATASHA Attending Unavailable DAYRON, LATASHA Attending Unavailable Allergies Allergy Classification Reported Allergen(s) Allergy Type Date of Onset Reaction(s) Facility Aminoketones (4 sources) buPROPion; Translations: [Wellbutrin SR 100 MG Oral Tablet Extended Release 12 Hour] Drug Allergy 03-05-20 20 Wellbutrin SR [facility] Work Phone: Corticosteroids (6 sources) Triamcinolone Drug Allergy 10-14-19 14 Other (See Comments) [facility] Lisdexamfetamine (1 source) Lisdexamfetamine Drug Allergy 10-04-19 21 Vyvanse [facility] Work Phone: Naltrexone (4 sources) Naltrexone; Translations: [Naltrexone HCl 50 MG Oral Tablet] Drug Allergy 03-05-20 20 Naltrexone HCl [facility] Work Phone: (1 source) Triamcinolone; Translations: [TRIAMCINOLONE ACETONIDE] Drug Allergy 10-12-19 15 [facility] Repository (16 sources) Triamcinolone; Translations: [Kenalog] Drug Allergy 07-06-19 20 [facility] Work Phone: (20 sources) Triamcinolone Drug Allergy 10-14-19 14 Other (See Comments), Other, Hives [place] (17 sources) Poison spencer Allergy to substance 07-20-19 [facility] Work Phone: (3 sources) buPROPion; Translations: [Wellbutrin SR 100 MG Oral Tablet Extended Release 12 Hour] Drug Allergy 03-05-20 20 Wellbutrin SR [facility] Work Phone: (3 sources) Naltrexone; Translations: [Naltrexone HCl 50 MG Oral Tablet] Drug Allergy 03-05-20 20 Naltrexone HCl [facility] Work Phone: (20 sources) Other Propensity [...] aspirin 81 mg delayed release oral tablet (20 sources) Platelet Aggregation Inhibitor, Nonsteroidal Anti-inflammator y [...] Active Continuous Glucose [facility]Dexcom G6 Sensor[facility] ([facility] Start: 01-18-2025 Continuous Glucose Sensor (Dexcom G6 Sensor) [facility] Indications: Elevated glucose tolerance test , 28 weeks gestation of ([facility]) , Gestational diabetes mellitus (GDM), antepartum, gestational diabetes method of control unspecified ([facility]) 1 each Every 10 (ten) days 3 each 3 01/18/2025 Active Start: 12-13-2024 Continuous Glu cose Sensor (Dexcom G6 Sensor) [facility] Indications: Elevated glucose tolerance test , 28 weeks gestation of ([facility]) , Gestational diabetes mellitus (GDM), antepartum, gestational diabetes method of control unspecified ([facility]) 1 each Every 10 (ten) days 3 each 3 12/13/2024 Active Continuous Glucose Transmitt er (Dexcom G6 transmitter) [facility] (10 sources) Start: 12-19-2024 Continuous Glu cose Transmitter (Dexcom G6 transmitter) [facility] Indications: Gestational diabetes mellitus (GDM), antepartum, gestational diabetes method of control unspecified ([facility]) Use as instructed 1 each 12/19/2024 Active [...] ibuprofen 800 MG tablet 01/06/2024 Active levonorgestrel 0.385733 mg/hr intrauterine system (17 sources) Progestin, Progestin-containin g Intrauterine Device Start : 07-20 Mirena (52 MG) 20 MCG/24HR Intrauterine Intrauterine device 07/20/2019 Provider: 24 hr metFORMIN hydrochloride 500 mg extended release oral tablet (13 sources) Biguanide Start : 06-14 End: 06-14 take 1 tablet by mouth every twenty-four hours at mealtime metFORMIN XR (Glucophage-XR) 500 MG 24 hr tablet Indications: Hyperglycemia during ([facility]) Take 1 tablet (500 mg) by mouth [...] Tablet 08/17/2019 - 09/14/2019 Provider: Miguel Holley ESTHETICIAN MAKEUP ARTIST polysaccharide iron complex 391 mg oral capsule [...] supervision of normal first in first trimester ([facility]) Take 1 tablet by mouth Daily 30 [...] MG Oral Tablet 03/05/2020 Provider: Miguel Holley ESTHETICIAN MAKEUP ARTIST Completed/Discontinued Medications Medication Drug Class(es) Dates Sig [...] [32 weeks gestation of ] 01-09-2025 Episodic Residual codes; unclassified (2 sources) Gestation period, 34 weeks; Translations: [34 weeks gestation of ] 01-23-2025 Episodic Unclassified (1 source) Patient encounter status; [...] Test Name Value Interpretation Reference Range Facility OB BPP W NON-STRESS on 01-19-2025 The [place] [id number] Ultrasound Report Signed Patient: ESTEFANIA CEDEÑO MR#: [id number] : 1995 Acct:[id number] Age/Sex: 29 / F ADM Date: 01/19/25 Loc: US Attending Dr: Aditya Cervantes D.O. Ordering Physician: Aditya Cervantes D.O. Date of Service: 01/19/25 Procedure(s): US OB BPP w non-stress Accession Number(s): [id number] cc: Aditya Cervantes D.O.; Physician,Non-Staff [facility] [place] [id number] Patient Name: ESTEFANIA CEDEÑO MRN: [facility]:[id number] date: 1995 Sex: F Assigned Patient Location: [facility] Current Patient Location: Accession/Order Number: [id number] Exam Date: 01/19/2025 09:10 Report Date: 01/19/2025 [...] Saez M.D. 01/19/2025 2:26 PM Dictation Location: [place] [address] Electronically authenticated by: [id number] Y Date: 01/19/2025 14:26 Dictated By: Carroll Saez D.O. Signed By: 01/19/25 1429 DD/ 142 TD/TT: Manager Party: [facility] Radiology, Radiologi MD raymond - 01/19/2025 [facility] [place] [id number] Ultrasound Report Signed Patient: ESTEFANIA CEDEÑO MR#: [id number] : 1995 Acct:[id number] Age/Sex: 29 / F ADM Date: 01/19/25 Loc: US Attending Dr: Aditya Cervantes D.O. Ordering Physician: Aditya Cervantes D.O. Date of Service: 01/19/25 Procedure(s): US OB BPP w non-stress Accession Number(s): [id number] cc: Aditya Cervantes D.O.; Physician,Non-Staff [place] [address] Patient Name: ESTEFANIA CEDEÑO MRN: [id number] date: 1995 Sex: F Assigned Patient Location: [facility] Current Patient Location: Accession/Order Number: [id number] Exam Date: 01/19/2025 09:10 Report Date: 01/19/2025 [...] Saez M.D. 01/19/2025 2:26 PM Dictation Location: [place] [address] Electronically authenticated by: [id number] Y Date: 01/19/2025 14:26 Dictated By: Carroll Saez D.O. Signed By: 01/19/25 1429 DD/ 25 TD/TT: Manager Party: [facility] Radiology Study observation (narrative) [facility] US OB BPP W NON-STRESS Ordered By: Radiologist Radiology on 01-19-2025 [facility] Work Phone: Urinalysis macro (dipstick) panel (U)on 01-09-2025 Bilirubin, UA Negative Negative - 4(70) +++ mg/dL [facility] Blood, UA Negative Negative - 50 Chuy/mcL [facility] Clarity, UA Clear [facility] Color, UA Yellow [facility] Glucose, UA Negative Negative - 2000(110) ++++ mg/dL [facility] Interpretation and review of laboratory results Normal [facility] Ketones, UA Negative Negative - 160(16) ++++ mg/dL [facility] Leukocytes, UA Negative Negative - 500+++ Sadi/mcL [facility] Nitrite, UA Negative Negative - Positive [facility] pH, UA 6.5 5 - 9 [facility] Protein, UA Negative Negative - 1999(20) ++++ mg/dL [facility] Spec Grav, UA 1.015 1 - 1.03 [facility] Urobilinogen, UA 1.0 0.2 - 12 mg/dL [facility] US OB FOLLOW UP TRANSABDOMIN AL APPROACHon [...] II, MD, PHD at 28-Dec-2024 08:33:38 AM [facility] Normal Not Available Comment on above: Order Comment: US OB SCAN FOR GROWTH Estimated Date of Delivery: 03/06/25 Gestational Age as of 12/13/2024: 28w1d Urinalysis macro (dipstick) panel (U)on 12-27-2024 Bilirubin, UA Negative Negative - 4(70) +++ mg/dL [facility] Blood, UA Negative Negative - 50 Chuy/mcL [facility] Clarity, UA Clear [facility] Color, UA Yellow [facility] Glucose, UA Positive Negative - 1999(110) ++++ mg/dL [facility] Interpretation and review of laboratory results Abnormal [facility] Ketones, UA Negative Negative - 160(16) ++++ mg/dL [facility] Leukocytes, UA Negative Negative - 500+++ Sadi/mcL [facility] Nitrite, UA Negative Negative - Positive [facility] pH, UA 6 5 - 9 [facility] Protein, UA Positive Negative - 1999(20) ++++ mg/dL [facility] Spec Grav, UA 1.02 1 - 1.03 [facility] Urobilinogen, UA 1.0 0.2 - 12 mg/dL [facility] Urinalysis macro (dipstick) panel (U)on 12-13-2024 Bilirubin, UA Negative Negative - 4(70) +++ mg/dL [facility] Blood, UA Negative Negative - 50 Chuy/mcL [facility] Clarity, UA Clear [facility] Color, UA Yellow [facility] Glucose, UA Negative Negative - 1999(110) ++++ mg/dL [facility] Interpretation and review of laboratory results Normal [facility] Ketones, UA Negative Negative - 160(16) ++++ mg/dL [facility] Leukocytes, UA Negative Negative - 500+++ Sadi/mcL [facility] Nitrite, UA Negative Negative - Positive [facility] pH, UA 6 5 - 9 [facility] Protein, UA Negative Negative - 1999(20) ++++ mg/dL [facility] Spec Grav, UA 1.015 1 - 1.03 [facility] Urobilinogen, UA 1.0 0.2 - 12 mg/dL [facility] GLUCOSE TOLERANCE 3 HOURon 0 12-12-2024 GLUCOSE TOLERANCE 3 HOUR High mg/dL [facility] Comment on above: GLU FAST 85 (<95) Co l: 07/15/25 1118 GLU 1HR 198H (<180) Col: 12/12/24 1220 GLU 2HR 171H (<155) Col: 12/12/24 1320 GLU 3HR 74 (<140) Col: 12/12/24 1422 Interpretation and review of laboratory results Abnormal [facility] ECG 12-LEADon 12-07-2024 [place] [address] Electrocardiograph Report Signed Patient: ESTEFANIA CEDEÑO MR#: [id number] : 1995 Acct:[id number] Age/Sex: 29 / F ADM Date: 12/05/24 Loc: CR Attending Dr: Latasha Padgett Ordering Physician: Latasha Padgett Date of Service: 12/05/24 Procedure(s): ECG 12 lead Accession Number(s): [id number] cc: [facility] Test Date: 2024-12-05 Pat Name: ESTEFANIA CEDEÑO Department: Room: - Gender: Female Operator Supply: : 1995 Requested By: 0923 Order Number: [id number] Reading MD: ANTON THORPE Measurements Intervals [place] Rate: 68 P: 55 AK: 116 QRS: 72 QRSD: 94 T: 14 QT: 411 QTc: 439 Interpretive Statements SINUS RHYTHM WITH SHORT AK INTERVAL NONSPECIFIC T-WAVE ABNORMALITY No previous ECG available for comparison Electronically Signed On 12-07-2024 9:00:49 EDT by ANTON THORPE Dictated By: Anton Thorpe M.D. Signed By: 12/07/2489912/07/24899 DD/ 09 TD/TT: Manager Party: [facility] Radiology, Radiologestefania andrade MD - 12/07/2024 [facility] [place] [id number] Electrocardiograph Report Signed Patient: ESTEFANIA CEDEÑO MR#: [id number] : 1995 Acct:[id number] Age/Sex: 29 / F ADM Date: 12/05/24 Loc: CR Attending Dr: Latasha Padgett Ordering Physician: Latasha Padgett Date of Service: 12/05/24 Procedure(s): ECG 12 lead Accession Number(s): [id number] cc: [facility] Test Date: 2024-12-05 Pat Name: ESTEFANIA CEDEÑO Department: Room: - Gender: Female Operator Supply: : 1995 Requested By: 0923 Order Number: [id number] Reading MD: ANTON THORPE Measurements Intervals [place] Rate: 68 P: 55 AK: 116 QRS: 72 QRSD: 94 T: 14 QT: 411 QTc: 439 Interpretive Statements SINUS RHYTHM WITH SHORT AK INTERVAL NONSPECIFIC T-WAVE ABNORMALITY No previous ECG available for comparison Electronically Signed On 12-07-2024 9:00:49 EDT by ANTON THORPE Dictated By: Anton Thorpe M.D. Signed By: 12/07/2489912/07/24899 DD/ 6 TD/TT: Manager Party: [facility] ECG 12-LEADOrdered By: [facility] on 12-07-2024 [facility] Work Phone: ALL CBC WITH AUTO DIFFon BASOPHILS ABSOLUTE AUTO 0 [facility] Basophils/100 WBC (Bld) 0.2 % 0.2 - 2.0 % [facility] Eosinophils/100 WBC (Bld) 0.6 % Low 0.9 - 7.0 % [facility] Erythrocyte distribution width (RBC) [Ratio] 13.7 % 11.0 - 15.0 % [facility] Hematocrit (Bld) [Volume fraction] 34.3 % Low 36.0 - 48.0 % [facility] Hemoglobin (Bld) [Mass/Vol] 11.5 g/dL Low 12.0 - 16.0 g/dL [facility] IMMATURE GRANULOCYTES ABS AUTO 0.08 High [facility] Immature granulocytes/100 WBC (Bld) 0.7 % High 0.0 - 0.5 % [facility] Interpretation and review of laboratory results Abnormal [facility] LYMPHOCYTES ABSOLUTE AUTO 2.1 [facility] Lymphocytes/100 WBC (Bld) 18.9 % Low 20.5 - 60.0 % [facility] MCH (RBC) [Entitic mass] 27.8 pg 26.7 - 34.0 pg [facility] MCHC (RBC) [Mass/Vol] 33.5 g/dL 29.9 - 35.2 g/dL [facility] MCV (RBC) [Entitic vol] 82.9 fL 81.0 - 99.0 fL [facility] MONOCYTES ABSOLUTE AUTO 0.5 [facility] Monocytes/100 WBC (Bld) 4 % 1.7 - 12.0 % [facility] NEUTROPHILS ABSOLUTE AUTO 8.6 High [facility] Neutrophils/100 WBC (Bld) 75.6 % High 43.0 - 75.0 % [facility] Platelet mean volume (Bld) [Entitic vol] 11.1 fL 9.5 - 13.5 fL [facility] TBH EO # 0.1 [facility] PLT 140 Low [facility] RBC 4.14 Low [facility] WBC 11.3 High [facility] ECG 12-LEADon 12-05-2024 Radiology Study observation (narrative) [facility] Urinalysis macro (dipstick) panel (U)on 11-22-2024 Bilirubin, UA Negative Negative - 4(70) +++ mg/dL [facility] Blood, UA Negative Negative - 50 Chuy/mcL [facility] Clarity, UA Clear [facility] Color, UA Yellow [facility] Glucose, UA Negative Negative - 1999(110) ++++ mg/dL [facility] Interpretation and review of laboratory results Abnormal [facility] Ketones, UA Positive Negative - 160(16) ++++ mg/dL [facility] Comment on above: trace Leukocytes, UA Negative Negative - 500+++ Sadi/mcL [facility] Nitrite, UA Negative Negative - Positive [facility] pH, UA 6.5 5 - 9 [facility] Protein, UA Negative Negative - 2000(20) ++++ mg/dL [facility] Spec Grav, UA 1.025 1 - 1.03 [facility] Urobilinogen, UA 0.2 0.2 - 12 mg/dL [facility] MHPT AFP, MATERNALon 025 MHPT DETERMINED BY Ultrasound [facility] MHPT DUE DATE SEE NOTE [facility] Comment on above: Results for Estimate d Due Date: 03 06 25 MHPT FAMILY HISTORY No [facility] MHPT GESTAT AGE (EXACT) 20 wks, 0 days [facility] INS REQ MATERN DIAB No [facility] MHPT INTERPRETATION Screen Neg [facility] Comment on above: (NOTE) INTERPRETATION: SCREEN NEGATIVE for open spina bifida Neural Tube Defects (NTD) Negative Pre-Test Post-Test Cutoff Neural Tube Defects Risks 1:1030 < 1:79696 1:250 Comments: The risk of an open neural tube defect is less than the screening cut-off. This test was developed and its performance characteristics determined by [facility] [employer]. It has not been cleared or approved by the US Food and Drug Administration. This test was performed in a CLIA certified laboratory and is intended for clinical purposes. MHPT [age] [facility] MATERNAL RACE Nonblack [facility] MH[facility] MATERNAL WEIGHT 234.0 lbs. [facility] AFP 0.82 [facility] MHPT NUMBER OF FETUSES Sanchez NO [facility] MHPT PATIENT'S AFP 36 ng/mL [facility]MOKING [facility] See Note [facility] Comment on above: (NOTE) Initial sample Performed By: [facility] [address] [place] [id number] Corporate Services Manager: Pranay Rousseau MD, PhD CLIA Number: [id number] Original Ordering Provider[facility] Urinalysis macro (dipstick) panel (U)on 10-25-2024 Bilirubin, UA Negative Negative - 4(70) +++ mg/dL [facility] Blood, UA Negative Negative - 50 Chuy/mcL [facility] Clarity, UA Clear [facility] Color, UA Yellow [facility] Glucose, UA Negative Negative - 2000(110) ++++ mg/dL [facility] Interpretation and review of laboratory results Normal [facility] Ketones, UA Negative Negative - 160(16) ++++ mg/dL [facility] Leukocytes, UA Negative Negative - 500+++ Sadi/mcL [facility] Nitrite, UA Negative Negative - Positive [facility] pH, UA 5.5 5 - 9 [facility] Protein, UA Negative Negative - 2000(20) ++++ mg/dL [facility] Spec Grav, UA 1.03 1 - 1.03 [facility] Urobilinogen, UA 0.2 0.2 - 12 mg/dL [facility] AFP, Maternalon 10-20-2024 Determined by Ultrasound [facility] Comment on above: Performed By: #### A AFPM #### [facility] [address] [place] [address] Grease Monkey: Dallas Xiong MD Due Date SEE NOTE [facility] Comment on above: Result Comment: Resu lts for Estimated Due Date: 03 06 25 Performed By: #### A AFPM #### [facility] [address] [place] [address] Grease Monkey: Dallas Xiong MD Family History No Normal [facility] Comment on above: Performed By: #### A AFPM #### [facility] [address] [place] [address] Grease Monkey: Dallas Xiong MD Gestat Age (exact) 20 wks, 0 days Normal [facility] Comment on above: Performed By: #### A AFPM #### [facility] [address] [place] [address] Grease Monkey: Dallas Xiong MD Ins Req Matern Diab No [facility] Comment on above: Performed By: #### A AFPM #### [facility] [address] [place] [address] Grease Monkey: Dallas Xiong MD Interpretation Screen Neg [facility] Comment on above: Result Comment: (NOT E) INTERPRETATION: SCREEN NEGATIVE for open spina bifida Neural Tube Defects (NTD) Negative Pre-Test Post-Test Cutoff Neural Tube Defects Risks 1:1030 < 1:26924 1:250 Comments: The risk of an open neural tube defect is less than the screening cut-off. This test was developed and its performance characteristics determined by [facility] [employer]. It has not been cleared or approved by the US Food and Drug Administration. This test was performed in a CLIA certified laboratory and is intended for clinical purposes. Performed By: #### A AFPM #### [facility] [address] [place], [place] [id number] Grease Monkey: Dallas Xiong MD M[age] at Del 29.[address] [facility] Comment on above: Performed By: #### A AFPM #### [facility] [address] [place], [place] [id number] Grease Monkey: Dallas Xiong MD Maternal Race Nonblack [facility] Comment on above: Performed By: #### A AFPM #### [facility] [address] [place], [place] [id number] Grease Monkey: Dallas Xiong MD Maternal Weight 234.0 lbs. [facility] Comment on above: Performed By: #### A AFPM #### [facility] [address] [place] [address] Grease Monkey: Dallas Xiong MD MoM for AFP 0.82 [facility] Comment on above: Performed By: #### A AFPM #### [facility] [address] [place], [place] [id number] Grease Monkey: Dallas Xiong MD Number of Fetuses [place] [facility] Comment on above: Performed By: #### A AFPM #### [facility] [address] [place] [address] Grease Monkey: Dallas Xiong MD Patient's AFP 36 ng/mL [facility] Comment on above: Performed By: #### A AFPM #### [facility] [address] [place] [address] Grease Monkey: Dallas Xiong MD Smoking Unknown [facility] Comment on above: Performed By: #### A AFPM #### [facility] [address] [place] [address] Grease Monkey: Dallas Xiong MD Specimen See Note [facility] Comment on above: Result Comment: (NOT E) Initial sample Performed By: [facility] [address] [place] [address] Corporate Services Manager: Pranay Rousseau MD, PhD CLIA Number: [id number] Performed By: #### A [facility] #### [address] [address] Grease Monkey: Dallas Xiong MD IGP,APTIMA HPV,AGE GDLNon AGE GDLN ACOG TESTING Note . [facility] Comment on above: TESTS RESULT FLAG UN [facility] REF RANGE LAB Clinician Provided Cytology Information Other.............. No. of containers..01 ThinPrep Vial Age Algo ACOG Geetha... FLAG LEGEND: L-Low Normal,H-High Normal,LL-Alert Low,HH-Alert High <-Panic Low,>-Panic High,A-Abnormal,AA-Critical Abnormal Performed at: 01 =[facility] [address] [place] [address] Lynda Almaguer MD, IGP, RFX APTIMA HPV ASCU Note . [facility] Comment on above: TESTS RESULT FLAG [facility] REF RANGE LAB DIAGNOSIS: 02 NEGATIVE FOR INTRAEPITHELIAL LESION OR MALIGNANCY. FUNGAL ORGANISMS MORPHOLOGICALLY CONSISTENT WITH MARTHA SPECIES ARE PRESENT. CELLULAR CHANGES ASSOCIATED WITH INFLAMMATION ARE PRESENT. Specimen adequacy: 02 Satisfactory for evaluation. Endocervical and/or squamous metaplastic cells (endocervical component) are present. Performed by: Juliana Correia Compensation Specialist . 02 Note: Note 02 The Pap [...] <-Panic Low,>-Panic High,A-Abnormal,AA-Critical Abnormal Performed at: [address] [place] [address] Lynda Almaguer MD, Performed at: = - [facility] [address] [id number] Grease Monkey: Lynda Almaguer MD, Phone: [phone] Performed at: [address] [id number] Grease Monkey: Lynda Almaguer MD, Phone: [phone] BRUSH-SPATULA BRUSH-ALONE 2 [facility] US OB 14+ WEEKS ANATOMY SCAN on [...] II, MD, PHD at 25-Oct-2024 11:18:35 PM [facility] Normal Not Available Comment on above: Order Comment: US OB ANATOMY SINGLE W US OB CERVICAL LENGTH Estimated Date of Delivery: 03/06/25 Gestational Age as of 09/26/2024: 17w0d Urinalysis macro (dipstick) panel (U)on 09-26-2024 Bilirubin, UA Negative Negative - 4(70) +++ mg/dL [facility] Blood, UA Negative Negative - 50 Chuy/mcL [facility] Clarity, UA Clear [facility] Color, UA Yellow [facility] Glucose, UA Negative Negative - 1999(110) ++++ mg/dL [facility] Interpretation and review of laboratory results Normal [facility] Ketones, UA Positive Negative - 160(16) ++++ mg/dL [facility] Leukocytes, UA Negative Negative - 500+++ Sadi/mcL [facility] Nitrite, UA Negative Negative - Positive [facility] pH, UA 7 5 - 9 [facility] Protein, UA Negative Negative - 1999(20) ++++ mg/dL [facility] Spec Grav, UA 1.02 1 - 1.03 [facility] Urobilinogen, UA 0.2 0.2 - 12 mg/dL [facility] Urinalysis macro (dipstick) panel (U)on 08-29-2024 Bilirubin, UA Negative Negative - 4(70) +++ mg/dL [facility] Blood, UA Positive Negative - 50 Chuy/mcL [facility] Comment on above: trace-intact Clarity, UA Clear [facility] Color, UA Yellow [facility] Glucose, UA Negative Negative - 1999(110) ++++ mg/dL [facility] Interpretation and review of laboratory results Abnormal [facility] Ketones, UA Negative Negative - 160(16) ++++ mg/dL [facility] Leukocytes, UA Negative Negative - 500+++ Sadi/mcL [facility] Nitrite, UA Negative Negative - Positive [facility] pH, UA 7 5 - 9 [facility] Protein, UA Negative Negative - 1999(20) ++++ mg/dL [facility] Spec Grav, UA 1.025 1 - 1.03 [facility] Urobilinogen, UA 0.2 0.2 - 12 mg/dL [facility] US OB TRANSVAGINALon 025 US OB TRANSVAGINAL [...] II, MD, PHD at 05-Aug-2024 09:13:53 AM [facility] Normal Not Available Comment on above: Order Comment: US OB TRANSVAGINAL No LMP recorded. [facility] PREG QUANT HCGon 025 HCG QUANTITATIVE 65723 mIU/mL [facility] Comment on above: 5-50 0.2-1 WEEK 50-500 1-2 WEEKS 100-5,000 2-3 WEEKS 500-10,000 3-4 WEEKS 1,000-50,000 4-5 WEEKS 10,000-100,000 5-6 WEEKS 15,000-200,000 6-8 WEEKS 10,000-100,000 2-3 MONTHS [facility] PREG QUANT HCGon 025 HCG QUANTITATIVE 35435 mIU/mL [facility] Comment on above: 5-50 0.2-1 WEEK 50-500 1-2 WEEKS 100-5,000 2-3 WEEKS 500-10,000 3-4 WEEKS 1,000-50,000 4-5 WEEKS 10,000-100,000 5-6 WEEKS 15,000-200,000 6-8 WEEKS 10,000-100,000 2[facility]stick[facility] (U)on 07-15-2023 Bilirubin, UA Negative Negative - 4(70) +++ mg/dL [facility] Blood, UA Negative Negative - 50 Chuy/mcL [facility] Clarity, UA Clear [facility] Color, UA Yellow [facility] Glucose, UA Negative Negative - 1999(110) ++++ mg/dL [facility] Interpretation and review of laboratory results Normal [facility] Ketones, UA Positive Negative - 160(16) ++++ mg/dL [facility] Leukocytes, UA Negative Negative - 500+++ Sadi/mcL [facility] Nitrite, UA Negative Negative - Positive [facility] pH, UA 6.5 5 - 9 [facility] Protein, UA Negative Negative - 1999(20) ++++ mg/dL [facility] Spec Grav, UA 1.025 1 - 1.03 [facility] Urobilinogen, UA 0.2 0.2 - 12 mg/dL [facility] C-Reactive Proteinon 022 CRP [Mass/Vol] mg/L 0 - 5 mg/L [facility] CBC with Auto Differentialon 12-16-2021 Absolute Eos # 0.09 [facility] Absolute Immature Granulocyte 0.[address] [facility] Absolute Lymph # 2.98 [facility] Absolute Love # 0.51 [facility] Basophils (Bld) [#/Vol] 0.04 10*3/uL [facility] Basophils/100 WBC (Bld) 0 % 0 - 2 % [facility] Eosinophils/100 WBC (Bld) 1 % 1 - 4 % [facility] Hematocrit (Bld) [Volume fraction] 39.6 % 36.3 - 47.1 % [facility] Hemoglobin (Bld) [Mass/Vol] 13.1 g/dL 11.9 - 15.1 g/dL [facility] Immature granulocytes/100 WBC (Bld) 0 % [address] [facility] Lymphocytes/100 WBC (Bld) 33 % 24 - 43 % [facility] MCH (RBC) [Entitic mass] 28.2 pg 25.2 - 33.[address] [facility] MCHC (RBC) [Mass/Vol] 33.1 g/dL 28.4 - 34.8 g/dL [facility] MCV (RBC) [Entitic vol] 85.3 fL 82.6 - 102.[address] [facility] Monocytes/100 WBC (Bld) 6 % 3 - 12 % [facility] NRBC Automated 0.0 0.0 per [address] [facility] Platelet distribution width (Bld) [Ratio] 12.0 % 11.8 - 14.4 % [facility] Platelet mean volume (Bld) [Entitic vol] 11.1 fL 8.1 - 13.[address] [facility] Platelets (Bld) [#/Vol] 214 10*3/uL [facility] RBC (Bld) [#/Vol] 4.64 10*6/uL 3.95 - 5.1 1 m/uL [facility] Segmented neutrophils/100 WBC (Bld) 60 % 36 - 65 % [facility] Segs Absolute 5.[address] [facility] WBC (Bld) [#/Vol] 9.2 10*3/uL [facility] Rheumatoid Factoron 12-17-19 22 Rheumatoid Factor <10 NINF [facility] Sedimentation Rateon 022 Sed Rate 5 [facility] Uric Acidon 12-16-2021 Urate [Mass/Vol] 4.2 mg/dL 2.4 - 5.7 mg/dL [facility] Basic Metabolic Panel w/ Ref yossi to MGOrdered By: Donny Hatfield on 10-15-2020 Anion gap [Moles/Vol] 13 mmol/L 9 - 17 mmol/L [facility] [employer] Work Phone: Calcium [Mass/Vol] 9.6 mg/dL 8.6 - 10. 4 mg/dL [facility] [employer] Work Phone: Chloride [Moles/Vol] 105 mmol/L 98 - 10 7 mmol/L [facility] [employer] Work Phone: CO2 [Moles/Vol] 22 mmol/L 20 - 31 mmol/L [employer] Phone: Creatinine [Mass/Vol] 0.62 mg/dL 0.50 - 0.90 mg/dL [employer] Phone: GFR >60 >60 mL/min [employer] Phone: GFR Non- >60 >60 mL/min [employer] Phone: Glucose [Mass/Vol] 110 mg/dL High 70 - 99 mg/dL [employer] Phone: Interpretation and review of laboratory results Abnormal [employer] Phone: Potassium [Moles/Vol] 3.5 mmol/L Low 3.7 - 5.3 mmol/L [employer] Phone: Sodium [Moles/Vol] 140 mmol/L 135 - 144 mmol/L [employer] Phone: Urea nitrogen (BldV) [Mass/Vol] 12 mg/dL 6 - 20 mg/dL [employer] Phone: Urea nitrogen/Creatinine (Bld) [Mass ratio] 19 [employer] Phone: [employer] Phone: CBC Auto DifferentialOrdered By: Donny Hatfield on 10-15-2020 Absolute Eos # 0.19 [employer] [facility] Work Phone: Absolute Immature Granulocyte 0.06 [employer] Work Phone: Absolute Lymph # 2.50 [employer] [facility] Work Phone: Absolute Love # 0.75 [employer] [facility] Work Phone: Basophils (Bld) [#/Vol] 0.04 10*3/uL [employer] Phone: Basophils/100 WBC (Bld) 0 % 0 - 2 % [employer] Phone: Differential Type NOT REPORTED [employer] Phone: Eosinophils/100 WBC (Bld) 1 % 1 - 4 % [employer] Phone: Hematocrit (Bld) [Volume fraction] 42.1 % 36.3 - 47.1 % [employer] Phone: Hemoglobin.gastrointes tinal spec 1 Ql (Stl) 14.0 g/dL 11.9 - 15.1 g/dL [employer] Phone: Immature granulocytes/100 WBC (Bld) 0 % 0 [employer] Phone: Interpretation and review of laboratory results Abnormal [employer] Phone: Lymphocytes/100 WBC (Bld) 14 % Low 24 - 43 % [employer] Phone: MCH (RBC) [Entitic mass] 28.1 pg 25.2 - 33.5 pg [employer] Phone: MCHC (RBC) [Mass/Vol] 33.3 g/dL 28.4 - 34.8 g/dL [employer] Phone: MCV (RBC) [Entitic vol] 84.4 fL 82.6 - 102.9 fL [employer] Phone: Monocytes/100 WBC (Bld) 4 % 3 - 12 % [employer] Phone: NRBC Automated 0.0 0.0 per 100 WBC [employer] Phone: Platelet distribution width (Bld) [Ratio] 11.9 % 11.8 - 14.4 % [employer] Phone: Platelet Estimate NOT REPORTED [employer] Phone: Platelet mean volume (Bld) [Entitic vol] 10.7 fL 8.1 - 13.5 fL [employer] Phone: Platelets (Bld) [#/Vol] 220 10*3/uL [employer] Phone: RBC (Bld) [#/Vol] 4.99 10*6/uL 3.95 - 5.1 1 m/uL [employer] Work Phone: RBC (Bld) [#/Vol] NOT REPORTED [employer] Phone: Segmented neutrophils/100 WBC (Bld) 81 % High 36 - 65 % [employer] Work Phone: Segs Absolute 14.20 High [employer] Work Phone: WBC (Bld) [#/Vol] 17.7 10*3/uL High [employer] Work Phone: WBC (Bld) [#/Vol] NOT REPORTED [employer] Phone: [employer] Work Phone: CT ABDOMEN PELVIS W IV CONTR AST Additional Contrast? NoneOrdered By: Donny Hatfield on 10-15-2020 1. Marked hepatic steatosis. 2. Hepatomegaly. 3. Mild colonic diverticulosis without evidence of diverticulitis. [employer] Phone: EXAMINATION: CT OF T HE ABDOMEN [...] subcutaneous soft tissues are unremarkable in appearance. [employer] Phone: Jean Marie, pn Incoming Radiant Results From [employer] - 10/15/2020 1:48 AM EDT EXAMINATION: CT [...] Mild colonic diverticulosis without evidence of diverticulitis. [employer] Phone: [employer] Phone: HCG Qualitative, SerumOrdere d By: Donnypatrick Hatfield on 10-15-2020 hCG Qual Negative NEGATIVE [employer] Phone: Comment on above: Specimens with hCG l evels near the threshold of the test (25 mIU/mL) may give a negative or indeterminate result. In such cases, another test should be performed with a new specimen in 48-72 hours. If early is suspected clinically in this setting, correlation with quantitative serum b-hCG level is suggested. [email or web address] has confirmed the use of plasma for this test. This has not been cleared or approved by the U.S. Food and Drug Administration. The FDA has determined that such clearance is not necessary. [employer] Phone: Hepatic Function PanelOrdere d By: Donny Hatfield on 10-15-2020 Albumin [Mass/Vol] 4.6 g/dL 3.5 - 5.2 g/dL [employer] Phone: Albumin/Globulin [Mass ratio] 1.6 {ratio} [employer] Phone: ALP (Bld) [Catalytic activity/Vol] 59 U/L 35 - 104 U/L [employer] Phone: ALT [Catalytic activity/Vol] 38 U/L High 5 - 33 U/L [employer] Phone: AST [Catalytic activity/Vol] 24 U/L <32 [employer] Phone: Bilirubin [Mass/Vol] 0.48 mg/dL 0.3 - 1 .2 mg/dL [employer] Phone: Bilirubin, Indirect CANNOT BE CALCULATED 0.00 - 1.00 mg/dL [employer] Phone: Bilirubin.indirect [Mass/Vol] mg/dL <0.31 mg/dL [employer] Phone: Free PSA/Total PSA [Mass fraction] 7.4 g/dL 6.4 - 8.3 g/dL [employer] Phone: Globulin NOT REPORTED 1.5 - 3.8 g/dL [employer] Phone: Interpretation and review of laboratory results Abnormal [employer] Phone: Laboratory - Chemistry and C hemistry - challengeOrdered By: Donny Hatfield on 10-15-2020 GFR/1.73 sq M.predicted MDRD (S/P/Bld) [Vol rate/Area] [employer] Phone: Comment on above: Average GFR for 20-2 9 years old: 116 mL/min/1.73sq m Chronic Kidney Disease: <60 mL/min/1.73sq m Kidney failure: <15 mL/min/1.73sq m eGFR calculated using average adult body mass. Additional eGFR calculator available at: http://www.[employer]/multiple_crcl_2012.htm Stage 1: Some kidney damage normal GFR Stage 2: Mild kidney damage GFR 60-89 Stage 3: Moderate kidney damage GFR 30-59 Stage 4: Severe kidney damage GFR 15-29 Stage 5: Severe kidney damage GFR <15 ESRD - chronic treatment by dialysis or transplant Lactic Acid, PlasmaOrdered B y: Donny Hatfield on 10-15-2020 Lactate [Moles/Vol] 1.1 mmol/L 0.5 - 2. 2 mmol/L [employer] Phone: Lactic Acid, Whole Blood NOT REPORTED 0.7 - 2.1 mmol/L [employer] Phone: [employer] Phone: LipaseOrdered By: Cuco on 10-15-2020 Lipase [Catalytic activity/Vol] 27 U/L 13 - 60 U/L [facility] [employer] Work Phone: MagnesiumOrdered By: Donny Hatfield on 10-15-2020 Magnesium [Mass/Vol] 1.8 mg/dL 1.6 - 2 .6 mg/dL [facility] Work Phone: [facility] Work Phone: Microscopic UrinalysisOrdere d By: Donny Hatfield on 10-15-2020 - [facility] Work Phone: Amorphous, UA NOT REPORTED None [facility] Work Phone: Bacteria, UA 1+ Abnormal None [facility] Work Phone: Casts UA NOT REPORTED /LPF [facility] Work Phone: Crystals, UA NOT REPORTED None /HPF [facility] Work Phone: Epithelial Cells UA 2 TO 5 [facility] Work Phone: Interpretation and review of laboratory results Abnormal [facility] Work Phone: Mucus, UA 1+ Abnormal None [facility] Work Phone: Other Observations UA NOT REPORTED NOT REQ. [facility] Work Phone: RBC, UA 2 TO 5 [facility] Work Phone: Renal Epithelial, UA NOT REPORTED 0 /HPF [facility] Work Phone: Trichomonas, UA NOT REPORTED None [facility] Work Phone: WBC, UA 0 TO 2 [facility] Work Phone: Yeast, UA NOT REPORTED None [facility] Work Phone: [facility] Work Phone: No Panel InformationOrdered By: Donny Hatfield on 10-15-2020 [facility] [employer] Work Phone: Urinalysis Reflex to Culture Ordered By: Donny Hatfield on 10-15-2020 Bilirubin Urine Negative NEGATIVE [facility] Work Phone: Color, UA YELLOW YELLOW [facility] Work Phone: Glucose, Ur Negative NEGATIVE [facility] Work Phone: Interpretation and review of laboratory results Abnormal [facility] Work Phone: Ketones Ql (U) Negative NEGATIVE [facility] Work Phone: Leukocyte esterase Test strip Ql (U) Negative NEGATIVE [facility] Work Phone: Nitrite, Urine Negative NEGATIVE [facility] Work Phone: pH, UA 5.0 [facility] Work Phone: Protein, UA Negative NEGATIVE [facility] Work Phone: Specific [place], UA 1.010 [facility] [employer] Work Phone: Turbidity UA CLEAR CLEAR [facility] Work Phone: Urinalysis Comments NOT REPORTED [facility] Work Phone: Urine Hgb 2+ Abnormal NEGATIVE [facility] Work Phone: Urobilinogen, Urine Normal Normal [facility] Work Phone: [facility] Work Phone: Comp Metabolic Profon 2020 (cont.) Normal [facility] Comment on above: Result Comment: Aver age GFR for 20-29 years old: 116 mL/min/1.73sq m Chronic Kidney Disease: <60 mL/min/1.73sq m Kidney failure: <15 mL/min/1.73sq m eGFR calculated using average adult body mass. Additional eGFR calculator available at: http://www.[employer]/multiple_crcl_2012.htm Performed By: #### L IPRF, CDP, CP, TSHX #### [address] [address] [employer]: Chato Aguirre MD Albumin [Mass/Vol] 4.3 g/dL Normal 3.5-5.2 [facility] Comment on above: Performed By: #### L IPRF, CDP, CP, TSHX #### [address] [address] [employer]: Chato Aguirre MD Albumin/Glob Ratio 1.3 Normal 1.0-2.5 [facility] Comment on above: Performed By: #### L IPRF, CDP, CP, TSHX #### [address] [address] [employer]: Chato Aguirre MD Alkaline Phos 49 U/L Normal 35-104 [facility] Comment on above: Performed By: #### L IPRF, CDP, CP, TSHX #### [address] [address] [employer]: Chato Aguirre MD ALT [Catalytic activity/Vol] 36 U/L High 5-33 [facility] Comment on above: Performed By: #### L IPRF, CDP, CP, TSHX #### [facility] [employer] [address] [place] [address] [employer]: Chato Aguirre MD Anion gap [Moles/Vol] 11 mmol/L Normal 9-17 [facility] Comment on above: Performed By: #### L IPRF, CDP, CP, TSHX #### [address] [address] [employer]: Chato Aguirre MD AST [Catalytic activity/Vol] 27 U/L Normal <32 [facility] Comment on above: Performed By: #### L IPRF, CDP, CP, TSHX #### [facility] [employer] [address] [place] [address] [employer]: Chato Aguirre MD Bilirubin [Mass/Vol] 0.34 mg/dL Normal 0.3-1.[address] [facility] Comment on above: Performed By: #### L IPRF, CDP, CP, TSHX #### [facility] [address] [place] [address] [employer]: Chato Aguirre MD Calcium [Mass/Vol] 9.5 mg/dL Normal 8.6-10.4 [facility] Comment on above: Performed By: #### L IPRF, CDP, CP, TSHX #### [facility] [employer] [address] [place] [address] [employer]: Chato Aguirre MD Chloride [Moles/Vol] 102 mmol/L Normal 98-[address] [facility] Comment on above: Performed By: #### L IPRF, CDP, CP, TSHX #### [facility] [employer] [address] [place] [address] [employer]: Chato Aguirre MD CO2 [Moles/Vol] 22 mmol/L Normal 20-31 [facility] Comment on above: Performed By: #### L IPRF, CDP, CP, TSHX #### [facility] [employer] [address] [place] [address] [employer]: Chato Aguirre MD Creatinine [Mass/Vol] 0.46 mg/dL Low 0.50-0.90 [facility] Comment on above: Performed By: #### L IPRF, CDP, CP, TSHX #### [facility] [address] [place] [address] [employer]: Chato Aguirre MD GFR, Amer >60 Normal >60 [facility] Comment on above: Performed By: #### L IPRF, CDP, CP, TSHX #### [facility] [address] [place] [address] [employer]: Chato Aguirre MD GFR,non Amer >60 Normal >[address] [facility] Comment on above: Performed By: #### L IPRF, CDP, CP, TSHX #### [facility] [address] [place] [address] [employer]: Chato Aguirre MD Glucose [Mass/Vol] 92 mg/dL Normal 70-99 [facility] Comment on above: Performed By: #### L IPRF, CDP, CP, TSHX #### [facility] [employer] [address] [place] [address] [employer]: Chato Aguirre MD Potassium [Moles/Vol] 4.2 mmol/L Normal 3.7-5.3 [facility] Comment on above: Performed By: #### L IPRF, CDP, CP, TSHX #### [address] [address] [employer]: Chato Aguirre MD Protein [Mass/Vol] 7.5 g/dL Normal 6.4-8.3 [facility] Comment on above: Performed By: #### L IPRF, CDP, CP, TSHX #### [facility] [address] [place] [address] [employer]: Chato Aguirre MD Sodium [Moles/Vol] 135 mmol/L Normal 135-144 [facility] Comment on above: Performed By: #### L IPRF, CDP, CP, TSHX #### [facility] [employer] [address] [place] [address] [employer]: Chato Aguirre MD Urea nitrogen [Mass/Vol] 11 mg/dL Normal 6-20 [facility] Comment on above: Performed By: #### L IPRF, CDP, CP, TSHX #### [facility] [employer] [address] [place] [address] [employer]: Chato Aguirre MD Lipid Prof, Fastingon 2020 Cholesterol [Mass/Vol] 186 mg/dL Normal <200 [facility] Comment on above: Result Comment: Cholesterol Guidelines: <200 Desirable 200-240 Borderline >240 Undesirable Performed By: #### L IPRF, CDP, CP, TSHX #### [facility] [address] [place] [address] [employer]: Chato Aguirre MD Cholesterol in HDL [Mass/Vol] 49 mg/dL Normal >40 [facility] Comment on above: Result Comment: HDL Guidelines: <40 Undesirable 40-59 Borderline >59 Desirable Performed By: #### L IPRF, CDP, CP, TSHX #### [facility] [employer] [address] [place] [address] [employer]: Chato Aguirre MD Cholesterol in LDL [Mass/Vol] 102 mg/dL Normal 0-130 [facility] Comment on above: Result Comment: LDL Guidelines: <100 Desirable 100-129 Near to/above Desirable 130-159 Borderline >159 Undesirable Direct (measured) LDL and calculated LDL are not interchangeable tests. Performed By: #### L IPRF, CDP, CP, TSHX #### [facility] [address] [place] [address] [employer]: Chato Aguirre MD Cholesterol.total/Chol esterol in HDL [Mass ratio] 3.8 {ratio} Normal <5 [facility] Comment on above: Performed By: #### L IPRF, CDP, CP, TSHX #### [facility] [address] [place] [address] [employer]: Chato Aguirre MD Triglyceride,Fasting 173 mg/dL High <[address] [facility] Comment on above: Result Comment: Triglyceride Guidelines: <150 Desirable 150-199 Borderline 200-499 High >499 Very high Based on AHA Guidelines for fasting triglyceride, February 2012. Performed By: #### L IPRF, CDP, CP, TSHX #### [facility] [address] [place] [address] [employer]: Chato Aguirre MD TSH w/reflex to FT4on 2020 TSH Qn 3.38 m[IU]/L Normal 0.30-5.00 [facility] Comment on above: Performed By: #### L IPRF, CDP, CP, TSHX #### [email or web address] [address] [place], [place] [id number] [employer]: Chato Aguirre MD CBC Auto DifferentialOrdered By: Miguel Holley on 09-23-2020 Absolute Eos # 0.14 [employer] [facility] Work Phone: Absolute Immature Granulocyte <0.03 [employer] Work Phone: Absolute Lymph # 2.71 [employer] [facility] Work Phone: Absolute Love # 0.48 [employer] Work Phone: Basophils (Bld) [#/Vol] 0.05 10*3/uL [employer] Work Phone: Basophils/100 WBC (Bld) 1 % 0 - 2 % [employer] Phone: Differential Type NOT REPORTED [employer] Phone: Eosinophils/100 WBC (Bld) 2 % 1 - 4 % [employer] Phone: Hematocrit (Bld) [Volume fraction] 42.9 % 36.3 - 47.1 % [employer] Phone: Hemoglobin.gastrointes tinal spec 1 Ql (Stl) 13.5 g/dL 11.9 - 15.1 g/dL [employer] Phone: Immature granulocytes/100 WBC (Bld) 0 % 0 [employer] Work Phone: Lymphocytes/100 WBC (Bld) 30 % 24 - 43 % [employer] Phone: MCH (RBC) [Entitic mass] 27.6 pg 25.2 - 33.5 pg [employer] Work Phone: MCHC (RBC) [Mass/Vol] 31.5 g/dL 28.4 - 34.8 g/dL [employer] Phone: MCV (RBC) [Entitic vol] 87.6 fL 82.6 - 102.9 fL [employer] Phone: Monocytes/100 WBC (Bld) 5 % 3 - 12 % [employer] Phone: NRBC Automated 0.0 0.0 per 100 WBC [employer] Phone: Platelet distribution width (Bld) [Ratio] 12.4 % 11.8 - 14.4 % [employer] Phone: Platelet Estimate NOT REPORTED [employer] Phone: Platelet mean volume (Bld) [Entitic vol] 11.6 fL 8.1 - 13.5 fL [employer] Phone: Platelets (Bld) [#/Vol] 246 10*3/uL [employer] Phone: RBC (Bld) [#/Vol] 4.90 10*6/uL 3.95 - 5.1 1 m/uL [employer] Work Phone: RBC (Bld) [#/Vol] NOT REPORTED [employer] Phone: Segmented neutrophils/100 WBC (Bld) 62 % 36 - 65 % [employer] Phone: Segs Absolute 5.79 [employer] Work Phone: WBC (Bld) [#/Vol] 9.2 10*3/uL [employer] Work Phone: WBC (Bld) [#/Vol] NOT REPORTED [employer] Phone: CBC with Diffon 09-23-2020 Abs. Basophil 0.05 k/uL Normal 0.00-0.20 [facility] Comment on above: Performed By: #### L IPRF, CDP, CP, TSHX #### [address] [address] [employer]: Chato Aguirre MD Abs.Imm.Granulocyte <0.03 Normal 0.00-0.30 [facility] Comment on above: Performed By: #### L IPRF, CDP, CP, TSHX #### [place] [address] [employer]: Chato Aguirer MD Abs.Neutrophil (Seg) 5.79 k/uL Normal 1.50-8.[address] [facility] Comment on above: Performed By: #### L IPRF, CDP, CP, TSHX #### [place] [address] [employer]: Chato Aguirre MD Basophils/100 WBC (Bld) 1 % Normal 0-2 [facility] Comment on above: Performed By: #### L IPRF, CDP, CP, TSHX #### [place] [address] [employer]: Chato Aguirre MD Eosinophils (Bld) [#/Vol] 0.14 10*3/uL Normal 0.00-0.44 [facility] Comment on above: Performed By: #### L IPRF, CDP, CP, TSHX #### [place] [address] [employer]: Chato Aguirre MD Eosinophils/100 WBC (Bld) 2 % Normal 1-4 [facility] Comment on above: Performed By: #### L IPRF, CDP, CP, TSHX #### [facility] [employer] [address] [place] [address] [employer]: Chato Aguirre MD Erythrocyte distribution width (RBC) [Ratio] 12.4 % Normal 11.8-14.4 [facility] Comment on above: Performed By: #### L IPRF, CDP, CP, TSHX #### [address] [address] [employer]: Chato Aguirre MD Hematocrit (Bld) [Volume fraction] 42.9 % Normal 36.3-47.1 [facility] Comment on above: Performed By: #### L IPRF, CDP, CP, TSHX #### [address] [address] [employer]: Chato Aguirre MD Hemoglobin (Bld) [Mass/Vol] 13.5 g/dL Normal 11.9-15.1 [facility] Comment on above: Performed By: #### L IPRF, CDP, CP, TSHX #### [address] [address] [employer]: Chato Aguirre MD Immature granulocytes/100 WBC (Bld) 0 % Normal 0 [facility] Comment on above: Performed By: #### L IPRF, CDP, CP, TSHX #### [address] [address] [employer]: Chato Aguirre MD Lymphocytes (Bld) [#/Vol] 2.71 10*3/uL Normal 1.10-3.70 [facility] Comment on above: Performed By: #### L IPRF, CDP, CP, TSHX #### [facility] [employer] [address] [place] [address] [employer]: Chato Aguirre MD Lymphocytes/100 WBC (Bld) 30 % Normal 24-43 [facility] Comment on above: Performed By: #### L IPRF, CDP, CP, TSHX #### [facility] [employer] [address] [place] [address] [employer]: Chato Aguirre MD MCH (RBC) [Entitic mass] 27.6 pg Normal 25.2-33.5 [facility] Comment on above: Performed By: #### L IPRF, CDP, CP, TSHX #### [address] [address] [address] Grease Monkey: Chato Aguirre MD MCHC (RBC) [Mass/Vol] 31.5 g/dL Normal 28.4-34.8 [facility] Comment on above: Performed By: #### L IPRF, CDP, CP, TSHX #### [address] [address] Grease Monkey: Chato Aguirre MD MCV (RBC) [Entitic vol] 87.6 fL Normal 82.6-102.9 [facility] Comment on above: Performed By: #### L IPRF, CDP, CP, TSHX #### [address] [address] Grease Monkey: Chato Aguirre MD Monocytes (Bld) [#/Vol] 0.48 10*3/uL Normal 0.10-1.20 [facility] Comment on above: Performed By: #### L IPRF, CDP, CP, TSHX #### [address] [address] Gre[employer] Monkey: Chato Aguirre MD Monocytes/100 WBC (Bld) 5 % Normal 3-12 [facility] Comment on above: Performed By: #### L IPRF, CDP, CP, TSHX #### [address] [address] Grease Monkey: Chato Aguirre MD Neutrophil (Seg) 62 % Normal 36-65 [facility] Comment on above: Performed By: #### L IPRF, CDP, CP, TSHX #### [address] [address] Grease Monkey: Chato Aguirre MD NRBC Automated 0.0 per 100 WBC Normal 0.0 [facility] Comment on above: Performed By: #### L IPRF, CDP, CP, TSHX #### [address] [address] Grease Monkey: Chato Aguirre MD Platelet mean volume (Bld) [Entitic vol] 11.6 fL Normal 8.1-13.5 [facility] Comment on above: Performed By: #### L IPRF, CDP, CP, TSHX #### [address] [address] Grease Monkey: Chato Aguirre MD Platelets (Bld) [#/Vol] 246 10*3/uL Normal 138-453 [facility] Comment on above: Performed By: #### L IPRF, CDP, CP, TSHX #### [address] [address] Grease Monkey: Chato Aguirre MD RBC (Bld) [#/Vol] 4.90 10*6/uL Normal 3.95-5.11 [facility] Comment on above: Performed By: #### L IPRF, CDP, CP, TSHX #### [address] [address] Grease Monkey: Chato Aguirre MD WBC (Bld) [#/Vol] 9.2 10*3/uL Normal 3.5-11.3 [facility] Comment on above: Performed By: #### L IPRF, CDP, CP, TSHX #### [address] [address] Grease Monkey: Chato Aguirre MD Auto Diff Performed NOT REPORTED Normal [facility] Comment on above: Performed By: #### L IPRF, CDP, CP, TSHX #### [address] [address] Grease Monkey: Chato Aguirre MD Platelet Estimate NOT REPORTED Normal [facility] Comment on above: Performed By: #### L IPRF, CDP, CP, TSHX #### [facility] [place] [address] Grease Monkey: Chato Aguirre MD RBC morphology finding Nom (Bld) NOT REPORTED Normal [facility] Comment on above: Performed By: #### L IPRF, CDP, CP, TSHX #### [facility] [address] [place] [id number] Grease Monkey: Chato Aguirre MD WBC Morphology NOT REPORTED Normal [facility] Comment on above: Performed By: #### L IPRF, CDP, CP, TSHX #### [facility] [address] [place] [id number] Grease Monkey: Chato Aguirre MD Comp Metabolic Profon 2020 BUN/CRE Ratio NOT REPORTED Normal 02-17 [facility] Comment on above: Performed By: #### L IPRF, CDP, CP, TSHX #### [facility] [address] [place] [phone] Grease Monkey: Chato Aguirre MD Staging: NOT REPORTED Normal [facility] Comment on above: Performed By: #### L IPRF, CDP, CP, TSHX #### [facility] [address] [place] [address] Grease Monkey: Chato Aguirre MD Comprehensive Metabolic Pane lOrdered By: Miguel Holley on 09-23-2020 Albumin [Mass/Vol] 4.3 g/dL 3.5 - 5.2 g/dL [employer] Phone: Albumin/Globulin [Mass ratio] 1.3 {ratio} [employer] Phone: ALP (Bld) [Catalytic activity/Vol] 49 U/L 35 - 104 U/L [employer] Phone: ALT [Catalytic activity/Vol] 36 U/L High 5 - 33 U/L [employer] Phone: Anion gap [Moles/Vol] 11 mmol/L 9 - 17 mmol/L [employer] Phone: AST [Catalytic activity/Vol] 27 U/L <32 [employer] Phone: Bilirubin [Mass/Vol] 0.34 mg/dL 0.3 - 1 .2 mg/dL [employer] Phone: Calcium [Mass/Vol] 9.5 mg/dL 8.6 - 10. 4 mg/dL [employer] Phone: Chloride [Moles/Vol] 102 mmol/L 98 - 10 7 mmol/L [employer] Phone: CO2 [Moles/Vol] 22 mmol/L 20 - 31 mmol/L [employer] Phone: Creatinine [Mass/Vol] 0.46 mg/dL Low 0.50 - 0.90 mg/dL [employer] Phone: Free PSA/Total PSA [Mass fraction] 7.5 g/dL 6.4 - 8.3 g/dL [employer] Phone: GFR >60 >60 mL/min [employer] Phone: GFR Non- >60 >60 mL/min [employer] Phone: GFR/1.73 sq M.predicted MDRD (S/P/Bld) [Vol rate/Area] [employer] Phone: Comment on above: Average GFR for 20-2 9 years old: 116 mL/min/1.73sq m Chronic Kidney Disease: <60 mL/min/1.73sq m Kidney failure: <15 mL/min/1.73sq m eGFR calculated using average adult body mass. Additional eGFR calculator available at: http://www.[employer].CellCentric/multiple_crcl_2012.htm GFR/1.73 sq M.predicted MDRD (S/P/Bld) [Vol rate/Area] NOT REPORTED [employer] Phone: Glucose [Mass/Vol] 92 mg/dL 70 - 99 mg/dL [employer] Phone: Potassium [Moles/Vol] 4.2 mmol/L 3.7 - 5.3 mmol/L [employer] Phone: Sodium [Moles/Vol] 135 mmol/L 135 - 144 mmol/L [employer] Phone: Urea nitrogen (BldV) [Mass/Vol] 11 mg/dL 6 - 20 mg/dL [employer] Phone: Urea nitrogen/Creatinine (Bld) [Mass ratio] NOT REPORTED [employer] Phone: Laboratory - Chemistry and C hemistry - challengeOrdered By: Miguel Holley on 09-23-2020 Albumin [Mass/Vol] 4.3 g/dL (3.5-5.2 ) [facility] Work Phone: Comment on above: Note: Responsible Ob meteorological observer: CEEV AUTOFILE ([id number]) ALT [Catalytic activity/Vol] 36 U/L High (5-33 ) [facility] Work Phone: Comment on above: Note: Responsible Ob meteorological observer: CEEV AUTOFILE ([id number]) Anion gap [Moles/Vol] 11 mmol/L (9-17 ) [facility] Work Phone: Comment on above: Note: Responsible Ob meteorological observer: CEEV AUTOFILE ([id number]) AST [Catalytic activity/Vol] 27 U/L (<32 ) [facility] Work Phone: Comment on above: Note: Responsible Ob meteorological observer: CEEV AUTOFILE ([id number]) Bilirubin [Mass/Vol] 0.34 mg/dL (0.3-1.2 ) [facility] Work Phone: Comment on above: Note: Responsible Ob meteorological observer: CEEV AUTOFILE ([id number]) Calcium [Mass/Vol] 9.5 mg/dL (8.6-10.4 ) [facility] Work Phone: Comment on above: Note: Responsible Ob meteorological observer: CEEV AUTOFILE ([id number]) Chloride [Moles/Vol] 102 mmol/L (98-107 ) [facility] Work Phone: Comment on above: Note: Responsible Ob meteorological observer: CEEV AUTOFILE ([id number]) Cholesterol [Mass/Vol] 186 mg/dL (<200 ) [facility] Work Phone: Comment on above: Note: Cholesterol Gu idelines:<200 [id number] Borderline>240 UndesirableResponsible Observer: CEEV AUTOFILE ([id number]) Cholesterol.total/Chol esterol in HDL [Mass ratio] 3.8 {ratio} (<5 ) [facility] Work Phone: Comment on above: Note: Responsible Ob meteorological observer: CEEV AUTOFILE ([id number]) CO2 [Moles/Vol] 22 mmol/L (20-31 ) [facility] Work Phone: Comment on above: Note: Responsible Ob meteorological observer: CEEV AUTOFILE ([id number]) Creatinine [Mass/Vol] 0.46 mg/dL Low (0.50- 0.90 ) [facility] Work Phone: Comment on above: Note: Responsible Ob meteorological observer: CEEV AUTOFILE ([id number]) Glucose [Mass/Vol] 92 mg/dL (70-99 ) [facility] Work Phone: Comment on above: Note: Responsible Ob meteorological observer: CEEV AUTOFILE ([id number]) Magnesium [Mass/Vol] 49 mg/dL (>40 ) [facility] Work Phone: Comment on above: Note: HDL Guidelines :<40 [id number] Borderline>59 DesirableResponsible Observer: CEEV AUTOFILE ([id number]) Magnesium [Mass/Vol] 102 mg/dL (0-130 ) [facility] Work Phone: Comment on above: Note: LDL Guidelines :<100 [id number] Near to/above [id number] Borderline>159 UndesirableDirect (measured) LDL and calculated LDL are not interchangeable tests.Responsible Observer: CEEV AUTOFILE ([id number]) Magnesium [Mass/Vol] 173 mg/dL High (<150 ) [facility] Work Phone: Comment on above: Note: Triglyceride G uidelines:<150 [id number] [id number] High>499 Very highBased on AHA Guidelines for fasting triglyceride, February 2012.Responsible Observer: CEEV AUTOFILE ([id number]) Potassium [Moles/Vol] 4.2 mmol/L (3.7-5.3 ) [facility] Work Phone: Comment on above: Note: Responsible Ob meteorological observer: CEEV AUTOFILE ([id number]) Protein [Mass/Vol] 7.5 g/dL (6.4-8.3 ) [facility] Work Phone: Comment on above: Note: Responsible Ob meteorological observer: CEEV AUTOFILE ([id number]) Sodium [Moles/Vol] 135 mmol/L (135-144 ) [facility] Work Phone: Comment on above: Note: Responsible Ob meteorological observer: CEEV AUTOFILE ([id number]) Urea nitrogen [Mass/Vol] 11 mg/dL (6-20 ) [facility] Work Phone: Comment on above: Note: Responsible Ob meteorological observer: CEEV AUTOFILE ([id number]) Laboratory - Hematology and Cell countsOrdered By: Miguel Holley on 09-23-2020 Basophils/100 WBC (Bld) 1 % (0-2 ) [facility] Work Phone: Comment on above: Note: Responsible Ob meteorological observer: XNV AUTOFILE ([id number]) Eosinophils (Bld) [#/Vol] 0.14 10*3/uL (0.00-0.44 ) [facility] Work Phone: Comment on above: Note: Responsible Ob meteorological observer: XNV AUTOFILE ([id number]) Eosinophils/100 WBC (Bld) 2 % (1-4 ) [facility] Work Phone: Comment on above: Note: Responsible Ob meteorological observer: XNV AUTOFILE (3018) Erythrocyte distribution width (RBC) [Ratio] 12.4 % (11.8-14.4 ) [facility] Work Phone: Comment on above: Note: Responsible Ob meteorological observer: XNV AUTOFILE (3018) Hematocrit (Bld) [Volume fraction] 42.9 % (36.3-47.1 ) [facility] Work Phone: Comment on above: Note: Responsible Ob meteorological observer: XNV AUTOFILE (3018) Hemoglobin (Bld) [Mass/Vol] 13.5 g/dL (11.9-15.1 ) [facility] Work Phone: Comment on above: Note: Responsible Ob meteorological observer: XNV AUTOFILE (3018) Immature granulocytes/100 WBC (Bld) 0 % (0 ) [facility] Work Phone: Comment on above: Note: Responsible Ob meteorological observer: XNV AUTOFILE ([id number]) Lymphocytes (Bld) [#/Vol] 2.71 10*3/uL (1.10-3.70 ) [facility] Work Phone: Comment on above: Note: Responsible Ob meteorological observer: XNV AUTOFILE (3018) Lymphocytes/100 WBC (Bld) 30 % (24-43 ) [facility] Work Phone: Comment on above: Note: Responsible Ob meteorological observer: XNV AUTOFILE (3018) MCH (RBC) [Entitic mass] 27.6 pg (25.2-33.5 ) [facility] Work Phone: Comment on above: Note: Responsible Ob meteorological observer: XNV AUTOFILE (3018) MCHC (RBC) [Mass/Vol] 31.5 g/dL (28.4- 34.8 ) [facility] Work Phone: Comment on above: Note: Responsible Ob meteorological observer: XNV AUTOFILE (3018) MCV (RBC) [Entitic vol] 87.6 fL (82.6-102.9 ) [facility] Work Phone: Comment on above: Note: Responsible Ob meteorological observer: XNV AUTOFILE ([id number]) Monocytes (Bld) [#/Vol] 0.48 10*3/uL (0.10-1.20 ) [facility] Work Phone: Comment on above: Note: Responsible Ob meteorological observer: XNV AUTOFILE (3018) Monocytes/100 WBC (Bld) 5 % (3-12 ) [facility] Work Phone: Comment on above: Note: Responsible Ob meteorological observer: XNV AUTOFILE (3018) Platelet mean volume (Bld) [Entitic vol] 11.6 fL (8.1-13.5 ) [facility] Work Phone: Comment on above: Note: Responsible Ob meteorological observer: XNV AUTOFILE (3018) Platelets (Bld) [#/Vol] 246 10*3/uL (138-453 ) [facility] Work Phone: Comment on above: Note: Responsible Ob meteorological observer: XNV AUTOFILE (3018) RBC (Bld) [#/Vol] 4.90 10*6/uL (3.95-5.11 ) [facility] Work Phone: Comment on above: Note: Responsible Ob meteorological observer: XNV AUTOFILE (3018) RBC morphology finding Nom (Bld) NOT REPORTED [facility] Work Phone: Segmented neutrophils/100 WBC (Bld) 62 % (36-65 ) [facility] Work Phone: Comment on above: Note: Responsible Ob meteorological observer: XNV AUTOFILE ([id number]) WBC (Bld) [#/Vol] 9.2 10*3/uL (3.5-11.3 ) [facility] Work Phone: Comment on above: Note: Responsible Ob meteorological observer: XNV AUTOFILE ([id number]) Lipid Prof, Fastingon 2020 Cholesterol,VLDL NOT REPORTED Normal 1-30 [facility] Comment on above: Performed By: #### L IPRF, CDP, CP, TSHX #### [email or web address] [id number] [id number] Grease Monkey: Chato Aguirre MD Lipid, FastingOrdered By: Zandra Holley on 09-23-2020 Cholesterol [Mass/Vol] 186 mg/dL <200 [employer] Phone: Comment on above: Cholesterol Guidelines: <200 Desirable 200-240 Borderline >240 Undesirable Cholesterol in HDL [Mass/Vol] 49 mg/dL >40 [employer] Phone: Comment on above: HDL Guidelines: <40 Undesirable 40-59 Borderline >59 Desirable Cholesterol in LDL [Mass/Vol] 102 mg/dL 0 - 130 mg/dL [employer] Phone: Comment on above: LDL Guidelines: <100 Desirable 100-129 Near to/above Desirable 130-159 Borderline >159 Undesirable Direct (measured) LDL and calculated LDL are not interchangeable tests. Cholesterol in VLDL [Mass/Vol] NOT REPORTED High 1 - 30 mg/dL [employer] Phone: Cholesterol.total/Chol esterol in HDL [Mass ratio] 3.8 {ratio} <5 [employer] Phone: Triglyceride, Fasting 173 mg/dL High <150 [employer] Phone: Comment on above: Triglyceride Guidelines: <150 Desirable 150-199 Borderline 200-499 High >499 Very high Based on AHA Guidelines for fasting triglyceride, February 2012. No Panel InformationOrdered By: Miguel Holley on 09-23-2020 Interpretation and review of laboratory results Abnormal [employer] Phone: (cont.) See Note [facility] Work Phone: Comment on above: Note: Average GFR fo r 20-29 years old:116 mL/min/1.73sq mChronic Kidney Disease:<60 mL/min/1.73sq mKidney failure:<15 mL/min/1.73sq meGFR calculated using average adult body mass. Additional eGFR calculatoravailable at:http://www.[employer]VoiceMedia/multiple_crcl_2012.htmResponsible Observer: CEEV AUTOFILE (3003) Abs. Basophil 0.05 k/uL (0.00-0.20 ) [facility] Work Phone: Comment on above: Note: Responsible Ob meteorological observer: XNV AUTOFILE ([id number]) Abs.Imm.Granulocyte <0.03 k/uL (0.00-0. 30 ) [facility] Work Phone: Comment on above: Note: Responsible Ob meteorological observer: XNV AUTOFILE ([id number]) Abs.Neutrophil (Seg) 5.79 k/uL (1.50-8 .10 ) [facility] Work Phone: Comment on above: Note: Responsible Ob meteorological observer: XNV AUTOFILE ([id number]) Albumin/Glob Ratio 1.3 (1.0-2.5 ) [facility] Work Phone: Comment on above: Note: Responsible Ob meteorological observer: CEEV AUTOFILE ([id number]) Alkaline Phos 49 U/L (35-104 ) [facility] Work Phone: Comment on above: Note: Responsible Ob meteorological observer: CEEV AUTOFILE ([id number]) Auto Diff Performed NOT REPORTED [facility] Work Phone: BUN/CRE Ratio NOT REPORTED (9-20 ) [facility] Work Phone: Cholesterol,VLDL NOT REPORTED mg/dL (1-30 ) [facility] Work Phone: GFR, Amer >60 mL/min (>60 ) [facility] Work Phone: Comment on above: Note: Responsible Ob meteorological observer: CEEV AUTOFILE ([id number]) GFR,non Amer >60 mL/min (>60 ) [facility] Work Phone: Comment on above: Note: Responsible Ob meteorological observer: CEEV AUTOFILE ([id number]) NRBC Automated 0.0 per_100_WBC (0.0 ) [facility] Work Phone: Comment on above: Note: Responsible Ob meteorological observer: XNV AUTOFILE (3010) Platelet Estimate NOT REPORTED [facility] Work Phone: Reported Physicians See Note [facility] Work Phone: Comment on above: Note: Reported Physi cians:Ordering: Cotton, AimeeAttending: Cotton, AimeeReferring: Cotton, Miguel Staging: NOT REPORTED [facility] Work Phone: Thyroid Stim. Horm. 3.38 mIU/L (0.30-5. 00 ) [facility] Work Phone: Comment on above: Note: Responsible Ob meteorological observer: CEEV AUTOFILE ([id number]) WBC Morphology NOT REPORTED [facility] Work Phone: TSH with ReflexOrdered By: Kamryn Holley on 09-23-2020 TSH Qn 3.38 m[IU]/L [facility] Work Phone: APTTon 04-08-2020 aPTT Coag (Bld) [Time] 25.2 s [facility], [place] Comment on above: IV Heparin Therapy Range: 62.0-94.0 Brain Natriuretic Peptideon 04-08-2020 Natriuretic peptide B (Bld) [Mass/Vol] pg/mL <300 pg/mL [facility], [place] Comment on above: Pro-BNP results ayse ot be compared to BNP results. Natriuretic peptide B (Bld) [Mass/Vol] Pro-BNP Reference Range: [facility], [place] Comment on above: Rule Out: <300 Weaver Zone: Age <50 300-450 Age 50-75 300-900 Age >75 300-1800 Usually represents mild to moderate HF but other cardiopulmonary causes cannot be ruled out. Rule In: Age <50 >450 Age 50-75 >900 Age >75 >1800 CBCon 04-08-2020 Erythrocyte distribution width (RBC) [Ratio] 11.9 % 11.8 - 14.4 % [place] Hematocrit (Bld) [Volume fraction] 37.9 % 36.3 - 47.1 % [place] Hemoglobin (Bld) [Mass/Vol] 12.5 g/dL 11.9 - 15.1 g/dL [place] MCH (RBC) [Entitic mass] 27.8 pg 25.2 - 33.5 pg [place] MCHC (RBC) [Mass/Vol] 33.0 g/dL 28.4 - 34.8 g/dL [place] MCV (RBC) [Entitic vol] 84.2 fL 82.6 - 102.9 fL [place] Platelet mean volume (Bld) [Entitic vol] 10.9 fL 8.1 - 13.5 fL [place] Platelets (Bld) [#/Vol] 184 10*3/uL [place] RBC (Bld) [#/Vol] 4.50 10*6/uL 3.95 - 5.1 1 m/uL [place] WBC (Bld) [#/Vol] 7.8 10*3/uL [place] WBC (Bld) [#/Vol] 0.0 10*3/uL 0.0 per 10 0 WBC [place] COVID-19on 04-08-2020 Interpretation and review of laboratory results Abnormal [place] SARS-CoV-2, Rapid DETECTED Abnormal Not Detected [place] Comment on above: Rapid NAAT: The [...] this assay. Fact sheet for Healthcare Providers: https://www.fda.gov/media/530577/download Fact sheet for Patients: https://www.fda.gov/media/477790/download Methodology: Isothermal Nucleic Acid Amplification Results reported to the appropriate Health Department Source .NASOPHARYNGEAL SWAB [place], [place] CT CHEST PULMONARY EMBOLISM W CONTRASTon 04-08-2020 Unremarkable appeara nce of the chest with no evidence of pulmonary embolism and clear lungs. Incidentally noted hepatic fatty infiltration. [place] EXAMINATION: CTA OF THE CHEST 04/08/2020 [...] No significant osseous or soft tissue abnormality. [place], [place] Jean Marie, Mhpn Incoming Radiant Results From [employer] - 04/08/2020 4:12 PM EST EXAMINATION: CTA [...] clear lungs. Incidentally noted hepatic fatty infiltration. [place] Comprehensive Metabolic Pane fermin 04-08-2020 Albumin [Mass/Vol] 4.1 g/dL 3.5 - 5.2 g/dL [place] Albumin/Globulin [Mass ratio] 1.4 {ratio} [place] ALP [Catalytic activity/Vol] 62 U/L 35 - 104 U/L [place] ALT [Catalytic activity/Vol] 19 U/L 5 - 33 U/L [place] Anion gap [Moles/Vol] 10 mmol/L 9 - 17 mmol/L [place] AST [Catalytic activity/Vol] 20 U/L <32 [place] Bilirubin Ql (U) 0.48 mg/dL 0.3 - 1.2 mg/dL [place] Bun/Cre Ratio 23 High [place] Calcium [Mass/Vol] 8.9 mg/dL 8.6 - 10. 4 mg/dL [place] Chloride [Moles/Vol] 102 mmol/L 98 - 10 7 mmol/L [place] CO2 [Moles/Vol] 23 mmol/L 20 - 31 mmol/L [place] Creatinine [Mass/Vol] 0.47 mg/dL Low 0.5 - 0.9 mg/dL [place] GFR >60 >60 mL/min [place] GFR Non- >60 >60 mL/min [place] Glucose [Mass/Vol] 88 mg/dL 70 - 99 mg/dL [place] Interpretation and review of laboratory results Abnormal [place] Potassium [Moles/Vol] 3.7 mmol/L 3.7 - 5.3 mmol/L [place] Protein [Mass/Vol] 7.1 g/dL 6.4 - 8.3 g/dL [place] Sodium [Moles/Vol] 135 mmol/L 135 - 144 mmol/L [place] Urea nitrogen [Mass/Vol] 11 mg/dL 6 - 20 mg/dL [place] Metabolic Panelon 04-08-2020 GFR/1.73 sq M predicted among non-blacks MDRD (S/P/Bld) [Vol rate/Area] [place] Comment on above: Stage 1: Some [...] body mass. Additional eGFR calculator available at: http://www.[employer]/multiple_crcl_2012.htm Otheron 04-08-2020 SARS-CoV-2 [place], [place] , Urineon 0 Beta HCG ( test) Ql (U) Negative NEGATIVE [place] Comment on above: Specimens with hCG l evels near the threshold of the test (25 mIU/mL) may give a negative or indeterminate result. In such cases, another test should be performed with a new specimen in 48-72 hours. If early is suspected clinically in this setting, correlation with quantitative serum b-hCG level is suggested. [email or web address] has confirmed the use of plasma for this test. This has not been cleared or approved by the U.S. Food and Drug Administration. The FDA has determined that such clearance is not necessary. Protime-INRon 04-08-2020 INR Coag (PPP) [Relative time] 1.0 {INR} [place] Comment on above: Non-therapeutic Range: INR = 0.9-1.2 Therapeutic Range: Moderate Anticoagulant Intensity: INR = 2.0-3.0 High Anticoagulant Intensity: INR = 2.5-3.5 PT Coag (PPP) [Time] 13.2 s [place] Troponinon 04-08-2020 Troponin I.cardiac [Mass/Vol] NOT REPORTED [place] Troponin T.cardiac [Mass/Vol] NOT REPORTED <0.03 ng/mL [place] Troponin, High Sensitivity <6 0 - 14 ng/L [place] Comment on above: High Sensitivity Troponin values cannot be compared with other Troponin methodologies. Patients with high levels of Biotin oral intake (i.e >5mg/day) may have falsely decreased Troponin levels. Samples collected within 8 hours of biotin intake may require additional information for diagnosis. CBC Auto Differentialon Basophils (Bld) [#/Vol] 0.05 10*3/uL [employer] Phone: Basophils/100 WBC (Bld) 1 % 0 - 2 % [employer] Phone: Differential Type NOT REPORTED [employer] Phone: Eosinophils (Bld) [#/Vol] 0.15 10*3/uL [employer] Phone: Eosinophils/100 WBC (Bld) 1 % 1 - 4 % [employer] Phone: Erythrocyte distribution width (RBC) [Ratio] 12.1 % 11.8 - 14.4 % [employer] Phone: Hematocrit (Bld) [Volume fraction] 44.5 % 36.3 - 47.1 % [employer] Phone: Hemoglobin (Bld) [Mass/Vol] 14.0 g/dL 11.9 - 15.1 g/dL [employer] Phone: Immature granulocytes (Bld) [#/Vol] 0 % 0 [employer] Phone: Immature granulocytes (Bld) [#/Vol] 10*3/uL [employer] Phone: Interpretation and review of laboratory results Abnormal [employer] Phone: Lymphocytes (Bld) [#/Vol] 2.83 10*3/uL [employer] Phone: Lymphocytes/100 WBC (Bld) 27 % 24 - 43 % [employer] Phone: MCH (RBC) [Entitic mass] 27.6 pg 25.2 - 33.5 pg [employer] Phone: MCHC (RBC) [Mass/Vol] 31.5 g/dL 28.4 - 34.8 g/dL [employer] Phone: MCV (RBC) [Entitic vol] 87.6 fL 82.6 - 102.9 fL [employer] Phone: Monocytes (Bld) [#/Vol] 0.52 10*3/uL [employer] Phone: Monocytes/100 WBC (Bld) 5 % 3 - 12 % [employer] Phone: Platelet mean volume (Bld) [Entitic vol] 12.0 fL 8.1 - 13.5 fL [employer] Phone: Platelets (Bld) [#/Vol] NOT REPORTED [employer] Phone: Platelets (Bld) [#/Vol] 241 10*3/uL [employer] Phone: RBC (Bld) [#/Vol] 5.08 10*6/uL 3.95 - 5.1 1 m/uL [employer] Phone: RBC morphology finding Nom (Bld) NOT REPORTED [employer] Phone: Segmented neutrophils/100 WBC (Bld) 66 % High 36 - 65 % [employer] Phone: [employer]s Absolute 7.04 [employer] Work Phone: WBC (Bld) [#/Vol] 10.6 10*3/uL [employer] Work Phone: WBC (Bld) [#/Vol] 0.0 10*3/uL 0.0 per 10 0 WBC [employer] Work Phone: WBC Morphology NOT REPORTED [employer] [place] [facility] Work Phone: [employer]acon 07-06-2019 Cholesterol [Mass/Vol] 198 mg/dL (<200) [facility] Work Phone: Comment on above: Note: Cholesterol Gu idelines:<200 [id number] Borderline>240 UndesirableResponsible Observer: CCEV AUTOFILE ([id number]) Comprehensive Metabolic Pane fermin 07-06-2019 Albumin [Mass/Vol] 4.5 g/dL 3.5 - 5.2 g/dL [employer] Work Phone: Albumin/Globulin [Mass ratio] 1.4 {ratio} [employer] Work Phone: ALP [Catalytic activity/Vol] 62 U/L 35 - 104 U/L [employer] Phone: ALT [Catalytic activity/Vol] 39 U/L High 5 - 33 U/L [employer] Work Phone: Anion gap [Moles/Vol] 16 mmol/L 9 - 17 mmol/L [employer] Work Phone: AST [Catalytic activity/Vol] 32 U/L High <32 [employer] Work Phone: Bilirubin Ql (U) 0.25 mg/dL Low 0.3 - 1.2 mg/dL [employer] Phone: Bun/Cre Ratio NOT REPORTED [facility]an [facility] Work Phone: Calcium [Mass/Vol] 9.8 mg/dL 8.6 - 10. 4 mg/dL [employer] Work Phone: Chloride [Moles/Vol] 103 mmol/L 98 - 10 7 mmol/L [employer] Phone: CO2 [Moles/Vol] 19 mmol/L Low 20 - 31 mmol/L [employer] Phone: Creatinine [Mass/Vol] 0.51 mg/dL 0.5 - 0.9 mg/dL [employer] Phone: GFR >60 >60 mL/min [employer] Phone: GFR Non- >60 >60 mL/min [employer] Phone: GFR/1.73 sq M predicted among non-blacks MDRD (S/P/Bld) [Vol rate/Area] [employer] Phone: Comment on above: Average GFR for 20-2 9 years old: 116 mL/min/1.73sq m Chronic Kidney Disease: <60 mL/min/1.73sq m Kidney failure: <15 mL/min/1.73sq m eGFR calculated using average adult body mass. Additional eGFR calculator available at: http://www.[employer]/multiple_crcl_2012.htm GFR/1.73 sq M predicted among non-blacks MDRD (S/P/Bld) [Vol rate/Area] NOT REPORTED [employer] Phone: Glucose [Mass/Vol] 89 mg/dL 70 - 99 mg/dL [employer] Phone: Interpretation and review of laboratory results Abnormal [employer] Phone: Potassium [Moles/Vol] 4.6 mmol/L 3.7 - 5.3 mmol/L [employer] Phone: Protein [Mass/Vol] 7.8 g/dL 6.4 - 8.3 g/dL [employer] Phone: Sodium [Moles/Vol] 138 mmol/L 135 - 144 mmol/L [employer] Phone: Urea nitrogen [Mass/Vol] 14 mg/dL 6 - 20 mg/dL [facility] Work Phone: Hematologyon 07-06-2019 Basophils/100 WBC (Bld) 1 % (0-2) [facility] Work Phone: Comment on above: Note: Responsible Ob meteorological observer: XNV AUTOFILE (3018) Eosinophils (Bld) [#/Vol] 0.15 10*3/uL (0.00-0.44) [facility] Work Phone: Comment on above: Note: Responsible Ob meteorological observer: XNV AUTOFILE (3018) Eosinophils/100 WBC (Bld) 1 % (1-4) [facility] Work Phone: Comment on above: Note: Responsible Ob meteorological observer: XNV AUTOFILE (3018) Hematocrit (Bld) [Volume fraction] 44.5 % (36.3-47.1) [facility] Work Phone: Comment on above: Note: Responsible Ob meteorological observer: XNV AUTOFILE (3018) Hemoglobin (Bld) [Mass/Vol] 14.0 g/dL (11.9-15.1) [facility] Work Phone: Comment on above: Note: Responsible Ob meteorological observer: XNV AUTOFILE (3018) Lymphocytes (Bld) [#/Vol] 2.83 10*3/uL (1.10-3.70) [facility] Work Phone: Comment on above: Note: Responsible Ob meteorological observer: XNV AUTOFILE (3018) Lymphocytes/100 WBC (Bld) 27 % (24-43) [facility] Work Phone: Comment on above: Note: Responsible Ob meteorological observer: XNV AUTOFILE (3018) MCH (RBC) [Entitic mass] 27.6 pg (25.2-33.5) [facility] Work Phone: Comment on above: Note: Responsible Ob meteorological observer: XNV AUTOFILE (3018) MCV (RBC) [Entitic vol] 87.6 fL (82.6-102.9 ) [facility] Work Phone: Comment on above: Note: Responsible Ob meteorological observer: XNV AUTOFILE (3018) Monocytes (Bld) [#/Vol] 0.52 10*3/uL (0.10-1.20) [facility] Work Phone: Comment on above: Note: Responsible Ob meteorological observer: XNV AUTOFILE (3018) Monocytes/100 WBC (Bld) 5 % (3-12) [facility] Work Phone: Comment on above: Note: Responsible Ob meteorological observer: XNV AUTOFILE (3018) Platelets (Bld) [#/Vol] NOT REPORTED [facility] Work Phone: [phone] Platelets (Bld) [#/Vol] 241 10*3/uL (138-453) [facility] Work Phone: Comment on above: Note: Responsible Ob meteorological observer: XNV AUTOFILE (3018) RBC (Bld) [#/Vol] 5.08 10*6/uL (3.95-5.11) [facility] Work Phone: Comment on above: Note: Responsible Ob meteorological observer: XNV AUTOFILE (3018) RBC morphology finding Nom (Bld) NOT REPORTED [facility] Work Phone: [phone] WBC (Bld) [#/Vol] 0.0 per_100_WBC (0.0) [facility] Work Phone: Comment on above: Note: Responsible Ob meteorological observer: XNV AUTOFILE (3018) WBC (Bld) [#/Vol] 10.6 10*3/uL (3.5-11.3) [facility] Work Phone: Comment on above: Note: Responsible Ob meteorological observer: XNV AUTOFILE (3018) Lipid, Fastingon 07-06-2019 Cholesterol [Mass/Vol] 198 mg/dL <200 [facility] Work Phone: Comment on above: Cholesterol Guidelines: <200 Desirable 200-240 Borderline >240 Undesirable Cholesterol in HDL [Mass/Vol] 53 mg/dL >40 [facility] Phone: Comment on above: HDL Guidelines: <40 Undesirable 40-59 Borderline >59 Desirable Cholesterol in LDL [Mass/Vol] 118 mg/dL 0 - 130 mg/dL [employer] Phone: Comment on above: LDL Guidelines: <100 Desirable 100-129 Near to/above Desirable 130-159 Borderline >159 Undesirable Direct (measured) LDL and calculated LDL are not interchangeable tests. Cholesterol in VLDL [Mass/Vol] NOT REPORTED 1 - 30 mg/dL [employer] Phone: Cholesterol.total/Chol esterol in HDL [Mass ratio] 3.7 {ratio} <5 [facility] Phone: Triglyceride, Fasting 135 mg/dL <150 [facility] [employer] Phone: Comment on above: Triglyceride Guidelines: <150 Desirable 150-199 Borderline 200-499 High >499 Very high Based on AHA Guidelines for fasting triglyceride, February 2012. Metabolic Panelon 07-06-2019 Albumin [Mass/Vol] 4.5 g/dL (3.5-5.2) [facility] Work Phone: Comment on above: Note: Responsible Ob meteorological observer: CCEV AUTOFILE (3002) ALT [Catalytic activity/Vol] 39 U/L High (5-33) [facility] Work Phone: Comment on above: Note: Responsible Ob meteorological observer: CCEV AUTOFILE (3002) Anion gap [Moles/Vol] 16 mmol/L (9-17) [facility] Work Phone: Comment on above: Note: Responsible Ob meteorological observer: CCEV AUTOFILE (3002) AST [Catalytic activity/Vol] 32 U/L High (<32) [facility] Work Phone: Comment on above: Note: Responsible Ob meteorological observer: CCEV AUTOFILE (3002) Bilirubin [Mass/Vol] 0.25 mg/dL Low (0.3-1.2) [facility] Work Phone: Comment on above: Note: Responsible Ob meteorological observer: CCEV AUTOFILE (3002) Calcium [Mass/Vol] 9.8 mg/dL (8.6-10.4) [facility] Work Phone: Comment on above: Note: Responsible Ob meteorological observer: CCEV AUTOFILE (3002) Chloride [Moles/Vol] 103 mmol/L (98-107) [facility] Work Phone: Comment on above: Note: Responsible Ob meteorological observer: CCEV AUTOFILE (3002) CO2 [Moles/Vol] 19 mmol/L Low (20-31) [facility] Work Phone: Comment on above: Note: Responsible Ob meteorological observer: CCEV AUTOFILE (3002) Creatinine [Mass/Vol] 0.51 mg/dL (0.50-0.90) [facility] Work Phone: Comment on above: Note: Responsible Ob meteorological observer: CCEV AUTOFILE (3002) Glucose [Mass/Vol] 89 mg/dL (70-99) [facility] Work Phone: Comment on above: Note: Responsible Ob meteorological observer: CCEV AUTOFILE (3002) Potassium [Moles/Vol] 4.6 mmol/L (3.7-5.3) [facility] Work Phone: Comment on above: Note: Responsible Ob meteorological observer: CCEV AUTOFILE (3002) Protein [Mass/Vol] 7.8 g/dL (6.4-8.3) [facility] Work Phone: Comment on above: Note: Responsible Ob meteorological observer: CCEV AUTOFILE (3002) Sodium [Moles/Vol] 138 mmol/L (135-144) [facility] Work Phone: Comment on above: Note: Responsible Ob meteorological observer: CCEV AUTOFILE (3002) Urea nitrogen [Mass/Vol] 14 mg/dL (6-20) [facility] Work Phone: Comment on above: Note: Responsible Ob meteorological observer: CCEV AUTOFILE (3002) Otheron 07-06-2019 (cont.) See Note [facility] Work Phone: Comment on above: Note: Average GFR fo r 20-29 years old:116 mL/min/1.73sq mChronic Kidney Disease:<60 mL/min/1.73sq mKidney failure:<15 mL/min/1.73sq meGFR calculated using average adult body mass. Additional eGFR calculatoravailable at:http://www.[employer]Voice[employer]/multiple_crcl_2012.htmResponsible Observer: CCEV AUTOFILE (3002) Abs. Basophil 0.05 k/uL (0.00-0.20) [facility] Work Phone: Comment on above: Note: Responsible Ob meteorological observer: XNV AUTOFILE (3018) Abs.Imm.Granulocyte <0.03 k/uL (0.00-0.30) [facility] Work Phone: Comment on above: Note: Responsible Ob meteorological observer: XNV AUTOFILE (3018) Abs.Neutrophil (Seg) 7.04 k/uL (1.50-8.10) a [facility] Work Phone: Comment on above: Note: Responsible Ob meteorological observer: XNV AUTOFILE (3018) Albumin/Glob Ratio 1.4 (1.0-2.5) [facility] Work Phone: Comment on above: Note: Responsible Ob meteorological observer: CCEV AUTOFILE (3002) Alkaline Phos 62 U/L (35-104) [facility] Work Phone: Comment on above: Note: Responsible Ob meteorological observer: CCEV AUTOFILE (3002) Auto Diff Performed NOT REPORTED a [facility] Work Phone: BUN/CRE Ratio NOT REPORTED (9-20) [facility] Work Phone: Cholesterol,HDL 53 mg/dL (>40) [facility] Work Phone: Comment on above: Note: HDL Guidelines :<40 Ybvhmpgvory24-03 Borderline>59 DesirableResponsible Observer: CCEV AUTOFILE (3002) Cholesterol,LDL 118 mg/dL (0-130) [facility] Work Phone: Comment on above: Note: LDL Guidelines :<100 Wpdyregzi652-441 Near to/above Liollxajg671-428 Borderline>159 UndesirableDirect (measured) LDL and calculated LDL are not interchangeable tests.Responsible Observer: CCEV AUTOFILE (3002) Cholesterol,VLDL NOT REPORTED mg/dL (-30) [facility] Work Phone: [phone] Cholesterol.total/Chol esterol in HDL [Mass ratio] 3.7 {ratio} (<5) [facility] Work Phone: Comment on above: Note: Responsible Ob meteorological observer: CCEV AUTOFILE (3002) Erythrocyte distribution width (RBC) [Ratio] 12.1 % (11.8-14.4) [facility] Work Phone: Comment on above: Note: Responsible Ob meteorological observer: XNV AUTOFILE (3018) Free Insulin 34 uIU/mL High (3-19) [facility] Work Phone: Comment on above: Note: Responsible Ob meteorological observer: LAB ARUP (0603) GFR, Amer >60 mL/min (>60) [facility] Work Phone: Comment on above: Note: Responsible Ob meteorological observer: CCEV AUTOFILE (3002) GFR,non Amer >60 mL/min (>60) [facility] Work Phone: Comment on above: Note: Responsible Ob meteorological observer: CCEV AUTOFILE (3002) Immature granulocytes (Bld) [#/Vol] 0 % (0) [facility] Work Phone: Comment on above: Note: Responsible Ob meteorological observer: XNV AUTOFILE (3018) MCHC (RBC) [Mass/Vol] 31.5 g/dL (28.4-34.8) [facility] Work Phone: Comment on above: Note: Responsible Ob meteorological observer: XNV AUTOFILE (3018) Performing Lab: see note [facility] Work Phone: [phone] Comment on above: Note: [facility] [address] [facility] [address] Note: [facility] [address] [facility] [address] Platelet mean volume (Bld) [Entitic vol] 12.0 fL (8.1-13.5) [facility] Work Phone: [phone] Comment on above: Note: Responsible Ob meteorological observer: XNV AUTOFILE (9058) Reported Physicians See Note [facility] Work Phone: [phone] Comment on above: Note: Reported Physi cians:Ordering: Allyson Floyd AAttending: No FloydthiaReferring: Allyson Floyd Segmented neutrophils/100 WBC (Bld) 66 % High (36-65) [facility] Work Phone: [phone] Comment on above: Note: Responsible Ob meteorological observer: XNV AUTOFILE (3019) Staging: NOT REPORTED [facility] Work Phone: [phone] Thyroid Stim. Horm. 4.15 mIU/L (0.30-5.00) [facility] Work Phone: [phone] Comment on above: Note: Responsible Ob meteorological observer: CCEV AUTOFILE (3002) Thyroxine, Free 1.21 ng/dL (0.93-1.70) [facility] Work Phone: Comment on above: Note: Responsible Ob meteorological observer: CCEV AUTOFILE (3002) Total Insulin 46 uIU/mL High (3-19) [facility] Work Phone: Comment on above: Note: (NOTE)INTERPRE TIVE INFORMATION: Insulin, Free and TotalThis test reacts on a nearly equimolar basis with the analogsinsulin aspart, insulin glargine, and insulin lispro. Insulindetemir exhibits approximately 50 percent cross-reactivity. Testreactivity with insulin glulisine is negligible (<3 percent). Toconvert to pmol/L, multiply uIU/mL by 6.0. Reference intervalsestablished for fasting specimens.Performed by [employer],[address] [place] [id number] klp.[facility] [place] Xiong MD, Lab. DirectorResponsible Observer: LAB KIERAN (06) Triglyceride,Fasting 135 mg/dL (<150) [facility] Work Phone: Comment on above: Note: Triglyceride G uidelines:<150 Lomcgyloh901-549 Utsmyfkmyo006-482 High>499 Very highBased on AHA Guidelines for fasting triglyceride, February 2012.Responsible Observer: CCEV AUTOFILE (3149) Triiodothyronine T3 150 ng/dL (80-200) [facility] Work Phone: Comment on above: Note: Responsible Ob meteorological observer: CEEV AUTOFILE (7032) WBC Morphology NOT REPORTED [facility] Work Phone: T3on 07-06-2019 T3, Total 150 ng/dL 80 - 200 ng/dL [employer] Work Phone: T4, Freeon 07-06-2019 Thyroxine, Free 1.21 ng/dL 0.93 - 1.7 ng/dL [employer] Work Phone: TSH without Reflexon 020 TSH Qn 4.15 m[IU]/L [employer] Work Phone: US NON OB TRANSVAGINALon Satisfactory IUD position. RECOMMENDATIONS: No follow-up imaging is recommended. Reference: US BPRs based on Radiology 2009;256(3):943-54; CT/MR BPRs based on J Am Joanne Radiol 2013;10:675-681. [facility] [place] EX[facility]: PELVIC ULTRASOUND 02/02/2019 TECHNIQUE: Transvaginal pelvic [...] Free Fluid: No evidence of free fluid. [facility] [place] Jean Marie, Mhpn Incoming Radiant Results From [employer] - 02/02/2019 8:44 AM EDT EXAMINATION: PELVIC [...] on J Am Joanne Radiol 2013;10:675-681. [facility] CNOV Office Visit ([facility]ALK[facility] ) ----- ESTEFANIA NAVARRETE ([id number]) 1995 F Date Time Provider Department 08/21/18 12:00 PM DANTEROSALEEGOODMIGUEL (DIANELYS) BENJA During your visit today, we recorded the following information about you: Temperature Pulse Respiration Blood pressure 97.6 degrees 99/minute 16/minute 136/81 Weight 109.8 kg Miguel Tena APRMEENAKSHI 08/21/2018 12:46 PM Signed Subjective The history is provided by the patient. No foreign language interpreter was used. Cough This is [...] is a safe and effective decongestant 3. [place] Nasal Sayner may offer relief of nasal and head [...] help open respiratory and sinus passages. - [place] Nasal Sayner may offer relief of nasal and head [...] get worse. Thank you for coming to [facility] today. I appreciate your confidence in choosing the [facility] for your medical care. Miguel Tena APRN.ESTHETICIAN MAKEUP ARTIST [facility] [address] [facility] [address] Referring Provider: SELF [200] Allergies As [...] is a safe and effective decongestant 3. [place] Nasal Sayner may offer relief of nasal and head [...] help open respiratory and sinus passages. - [place] Nasal Sayner may offer relief of nasal and head [...] get worse. [facility] I appreciate your confidence in choosing the [facility] for your medical care. Miguel Tena APRN.DIANELYS [facility] [address] [facility] [address] Prescriptions ordered this encounter Disp Refills [...] by MIGUEL TENA CNP on 08/21/18 Normal [facility] PROGRESSon 08-21-2018 Protein mass conc HNO ID: [id number] Author: Miguel Tena Service: ? Author Type: Nurse Practitioner Type: Progress Notes Filed: 08/21/2018 12:46 PM Note Text: Subjective The history is provided by the patient. No foreign language interpreter was used. Cough This is [...] 3-5 days or get worse Miguel Tena APRN.ESTHETICIAN MAKEUP ARTIST Normal [facility] CNCOon 12-22-2017 CNCO Letter Text Erica Velazquez MD [facility] [address] [place] [address] Estefania Navarrete December 22, 2017 Estefania Navarrete [address] [place] [address] Dear Ms. Navarrete, It was noted that you did not keep your scheduled appointment on 12-22-17. It is important to contact the office in advance if you are unable to keep your appointment so that it is available for other patients. Your medical care is important to us. Please call our office to reschedule an appointment. Sincerely, Erica Velazquez MD [facility] Consult Reporton 01-05-2017 Consult Report Patient: JITENDRA NAVARRETE Age: 21 years Sex: Female : 1995 Associated Diagnoses: None Author: TYRON MA RES KAREN [facility] Podiatry DepartmentReason for Consult: Active [...] 11:18) 37.3 (JAN 04 11:18)Heart Rate 77 (AUG 07 11:54) 77 (JAN 04 11:54) H 118 [...] discussed with attending physician, Dr. Jaime Shepard [phone] ically Signed by: KAREN SHEPARD DPM, RES on 01/04/2017 13:59 EDTElectronically Co-Signed by: KAREN SHEPARD DPM, RESon 01/04/2017 14:37 EDTElectronically Co-Signed by: Rene REYES DPM 01/05/2017 18:28 EDT Normal [facility] APTTon 01-04-2017 aPTT 29.9 Second(s) Normal [facility] Comment on above: Result Comment: VERI FIED by Discern Expert. Performed By: #### 1 52798, [id number], 916965, 872045, 358148, 282992 ####[facility] [address] [place] [address] Medical Director: David Doe MD aPTT 25.9 Second(s) Normal 25.0-36.0 [facility] Comment on above: Performed By: #### 1 85189, 9473619, 380079, 487253, 972480, 325041 ####[facility] [address] [place] [address] Medical Director: David Doe MD AUTO DIFFon 01-04-2017 Basophils Auto #/vol (Bld) 0.04 x1000 Normal 0.00-0.20 [facility] Comment on above: Performed By: #### 1 20807, 5382234, 753903, 237067, 204621, 845349 ####[facility] [address] [place] [address] Medical Director: David Doe MD Basos % 0.5 % Normal [facility] Comment on above: Performed By: #### 1 65390, 4894278, 740462, 211062, 377008, 669741 ####[facility] [address] [place] [address] Medical Director: David Doe MD Eos Count 0.10 x1000 Normal 0.00-0.50 [facility] Comment on above: Performed By: #### 1 01659, 2686508, 774537, 116563, 369960, 329089 ####[facility] [address] [place] [address] Medical Director: David Doe MD Eosinophils/100 leukocytes 1.0 % Normal [facility] Comment on above: Performed By: #### 1 63162, 9203011, 178537, 132510, 272548, 790999 ####[facility] [address] [place] [address] Medical Director: David Doe MD Lymphocytes 2.84 x1000 Normal 1.20-4.80 [facility] Comment on above: Performed By: #### 1 05595, 1964645, 724323, 220639, 283774, 932190 ####[facility] [address] [place] [address] Medical Director: David Doe MD Lymphocytes/100 leukocytes 29.4 % Normal [facility] Comment on above: Performed By: #### 1 34823, 8896192, 765305, 447291, 093342, 641237 ####[facility] [address] [place] [address] Medical Director: David Doe MD Love Count 0.68 x1000 Normal 0.10-1.00 [facility] Comment on above: Performed By: #### 1 81830, 3170581, 331556, 590683, 900417, 655138 ####[facility] [address] [place] [address] Medical Director: David Doe MD Monocytes/100 leukocytes 7.0 % Normal [facility] Comment on above: Performed By: #### 1 04070, 6305762, 204381, 920041, 315481, 594347 ####[facility] [address] [place] [address] Medical Director: David Doe MD Neutrophils 5.98 x1000 Normal 1.40-8.80 [facility] Comment on above: Performed By: #### 1 81381, 2240626, 745501, 065294, 375312, 273186 ####[facility] [address] [place] [address] Medical Director: David Doe MD Neutrophils/100 WBC Auto (Bld) 62.0 % Normal [facility] Comment on above: Performed By: #### 1 24645, 9281422, 927772, 875495, 112110, 188410 ####[facility] [address] [place] [address] Medical Director: David Doe MD COMPMETAon 01-04-2017 Globulin 4.0 g/dL Normal [facility] Comment on above: Performed By: #### 1 44109, 5107646, 868450, 135818, 353492, 103193 ####[facility] [address] [place] [address] Medical Director: David Doe MD Osmolality 277 mOsm/kg Normal 275-295 [facility] Comment on above: Performed By: #### 1 21237, 4215826, 639636, 572022, 477888, 314842 ####[facility] [address] [place] [address] Medical Director: David Doe MD eGFR (non-black) mL/min/{1.73_m2} Normal So [facility] Comment on above: Result Comment: Afri can Belarusian GFR Calc Performed By: #### 1 03382, 7253341, 527745, 385747, 462458, 607531 ####[facility] [address] [place] [address] Medical Director: David Doe MD Result Comment: Non GFR CalcMedical judgement is necessary to interpret GFR. The calculated GFR may not accurately reflect renal status in patients >70 years, women, acutely ill hospitalized patients and patients with acute renal failure or known renal disease.Note:Creatinine clearance (not GFR) should be used for drug dosing. Albumin/Globulin Ratio 0.8 {ratio} Normal S [facility] Comment on above: Performed By: #### 1 42854, 2837996, 204176, 445765, 740703, 654543 ####[facility] [address] [place] [address] Medical Director: David Doe MD BUN/Creatinine Ratio 17.6 mg/mg Normal [facility] Comment on above: Performed By: #### 1 00804, 3858278, 266357, 619772, 920960, 514793 ####[facility] [address] [place] [address] Medical Director: David Doe MD Alk Phos 61 unit/L Normal 45-117 [facility] Comment on above: Performed By: #### 1 26120, 6297798, 848850, 502981, 696251, 739967 ####[facility] [address] [place] [address] Medical Director: David Doe MD Bilirubin (total) 0.41 mg/dL Normal 0.20-1.00 [facility] Comment on above: Performed By: #### 1 32954, 3243205, 907782, 133782, 314054, 407663 ####[facility] [address] [place] [address] Medical Director: David Doe MD Protein 7.4 g/dL Normal 6.0-8.5 [facility] Comment on above: Performed By: #### 1 94133, 0776003, 678926, 359350, 054009, 120484 ####[facility] [address] [place], [place] [id number]) [phone] Director: David Doe MD GPT 16 unit/L Normal 13-56 [facility] Comment on above: Result Comment: Mariposa puncture should occur prior to sulfasalazine and/or sulfapyridine administration due to the potential for falsely depressed results.Baseline assay values before administration of sulfasalazine and sulfapyridine therapy would not be affected. Performed By: #### 1 35702, 0325482, 763745, 595382, 276349, 803346 ####[facility] [address] [place] [address] Medical Director: David Doe MD Creatinine 0.7 mg/dL Normal 0.6-1.0 [facility] Comment on above: Performed By: #### 1 07368, 5699412, 955627, 247145, 492084, 886383 ####[facility] [address] [place] [address] Medical Director: David Doe MD GOT 14 unit/L Low 15-37 [facility] Comment on above: Result Comment: Mariposa puncture should occur prior to sulfasalazine and/or sulfapyridine administration due to the potential for falsely depressed results.Baseline assay values before administration of sulfasalazine and sulfapyridine therapy would not be affected. Performed By: #### 1 93977, [id number], 989882, 237089, 495032, 226285 ####[facility] [address] [place] [address] Medical Director: David Doe MD Urea nitrogen 13 mg/dL Normal 10-20 [facility] Comment on above: Performed By: #### 1 31613, [id number], 208565, 171936, 198034, 303288 ####[facility] [address] [place] [address] Medical Director: David Doe MD Glucose mass conc 86 mg/dL Normal 72-100 [facility] Comment on above: Result Comment: Mariposa puncture should occur prior to sulfasalazine administration due to the potential for falsely depressed results. Venipuncture should occur prior to sulfapyridine administration due to the potential falsely elevated results.Baseline assay values before administration of sulfasalazine and sulfapyridine therapy would not be affected. Performed By: #### 1 90980, 1787500, 962331, 068975, 322044, 473147 ####[facility] [address] [place] [address] Medical Director: David Doe MD Albumin 3.4 g/dL Normal 3.4-5.0 [facility] Comment on above: Performed By: #### 1 78032, 1916976, 905222, 240348, 252294, 390838 ####[facility] [address] [place] [address] Medical Director: David Doe MD CO2 19.0 mmol/L Low 21.0-32.0 [facility] Comment on above: Performed By: #### 1 06976, 9260168, 187388, 402514, 369960, 003422 ####[facility] [address] [place] [address] Medical Director: David Doe MD Calcium 9.0 mg/dL Normal 8.5-10.5 [facility] Comment on above: Performed By: #### 1 73996, 5466503, 226454, 562659, 737151, 342841 ####[facility] [address] [place] [address] Medical Director: David Doe MD Potassium molar conc 3.7 mmol/L Normal 3.5-5.1 [facility] Comment on above: Performed By: #### 1 23315, 6399723, 222782, 981193, 937908, 261171 ####[facility] [address] [place], [place] [id number]) [phone] Director: David Doe MD Sodium 139 mmol/L Normal 135-145 [facility] Comment on above: Performed By: #### 1 57301, 5956569, 790301, 878555, 465484, 931606 ####[facility] [address] [place], [place] [id number]) [phone] Director: David Doe MD Chloride 108 mmol/L Normal 100-109 [facility] Comment on above: Performed By: #### 1 68135, 1053955, 776998, 827163, 975891, 728891 ####[facility] [address] [place], [place] [id number]) [phone] Director: David Doe MD CT LOWER EXTREMITY [...] Damir SMITH MD Out: 01/04/17 12:59:57 Normal [facility] ED Physician Reporton 2016 ED Physician [...] Plan Diagnosis Crush injury of right foot ([id number] S97.81XA, Working, Medical) Plan Condition: Stable. Disposition: ED Discharge to Home was placed.(01/04/2017 13:39:31 EDT, Constant Order). Prescriptions: Launch prescriptions Pharmacy:Percocet 5/325 ([id number]) oral tablet (Prescribe): 1 tabs, ORAL, [id number], PRN: for pain, 24 tabs, 0 Refill(s)doxycycline hyclate 100 mg oral tablet (Prescribe): 100 mg = 1 tabs, ORAL, BID, for 10 days, 20 tabs, 0 Refill(s). Patient was given the following educational materials: Cryotherapy, Qovz-dz-Wsci, Compartment Syndrome of the Foot, Compartment Syndrome of the Foot, Cryotherapy, Wrkl-oj-Zski. Follow up with: Ramon[facility] Within 3 to 5 [...] by: Selene GALVAN MD 01/04/2017 14:19 Normal [facility] ED Progress Noteon 7 ED Progress [...] medicatedsig other at bedsidepodiatry coming to see [id number] ASSUMED CARE OF PT, REPORT RECEIVED FROM [...] a little dizzy after trying crutches. Normal [facility] HCGon 01-04-2017 HCG, Qual <1.0 Normal [facility] Comment on above: Result Comment: 0 - 3 Negative3 - 50 Inconclusive>50 Positive Performed By: #### 1 57081, 0371443, 979318, 785238, 622274, 122684 ####[facility] [address] [place] [address] Medical Director: David Doe MD HEMOon 01-04-2017 DIFF? No Normal [facility] Comment on above: Performed By: #### 1 78353, 0308666, 404403, 992628, 521826, 987716 ####[facility] [address] [place], [place] [id number]) [phone] Director: David Doe MD Erythrocyte distribution width Auto Ratio (RBC) 13.3 % Normal 11.5-14.5 [facility] Comment on above: Performed By: #### 1 30488, 0370209, 784442, 125876, 954563, 011172 ####[facility] [address] [place] [address] Medical Director: David Doe MD Erythrocytes (RBC) 4.80 x10 Normal 4.20-5.40 [facility] [place] Comment on above: Result Comment: Note : RBC morphology is normal unless otherwise stated. Evaluation performed only if differential is requested. Performed By: #### 1 65334, 1269906, 082101, 072770, 662769, 209295 ####[facility] [address] [place], [place] [id number]) [phone] Director: David Doe MD Hematocrit (HCT) 39.0 % Normal 36.0-46.0 [facility] Comment on above: Performed By: #### 1 97173, 0603331, 779063, 313146, 434990, 243566 ####[facility] [address] [place], [place] [id number]) [phone] Director: David Doe MD Hemoglobin mass conc (Bld) 13.1 g/dL Normal 12.0-16.0 [facility] Comment on above: Performed By: #### 1 88541, 6132926, 857782, 324607, 621037, 848888 ####[facility] [address] [place], [place] [id number]) [phone] Director: David Doe MD MCH 27.3 pg Normal 27.0-34.0 [facility] Comment on above: Performed By: #### 1 70360, 9726741, 006462, 117139, 913821, 091000 ####[facility] [address] [place], [place] [id number]) [phone] Director: David Doe MD MCHC mass conc (RBC) 33.6 g/dL Normal 32.0-37.0 [facility] Comment on above: Performed By: #### 1 75911, 1978804, 252798, 115782, 529616, 286272 ####[facility] [address] [place], [place] [id number]) [phone] Director: David Doe MD MCV 81.3 fL Normal 80.0-100.0 [facility] Comment on above: Performed By: #### 1 43924, 3257927, 177063, 197028, 241757, 058460 ####[facility] [address] [place], [place] [id number]) [phone] Director: David Doe MD Nucleated RBC% 0 /100WC Normal [facility] Comment on above: Performed By: #### 1 93840, 0952414, 764523, 988813, 416606, 004950 ####[facility] [address] [place] [address] Medical Director: David Doe MD Platelet mean volume (PMV) 9.4 fL Normal 7.4-10.4 [facility] Comment on above: Performed By: #### 1 12621, 1881513, 273384, 220296, 977714, 442113 ####[facility] [address] [place] [address] Medical Director: David Doe MD Platelets 238 x1000 Normal 150-450 [facility] Comment on above: Performed By: #### 1 98415, 5471661, 959847, 792841, 291103, 352192 ####[facility] [address] [place] [address] Medical Director: David Doe MD WBC (Leukocytes) 9.6 10*3/uL Normal [facility] Comment on above: Performed By: #### 1 16398, 4058561, 914483, 268597, 756698, 928142 ####[facility] [address] [place] [address] Medical Director: David Doe MD WBC (Leukocytes) 9.6 x10 Normal 4.5-11.0 [facility] Comment on above: Performed By: #### 1 09362, 7632480, 369707, 426571, 242418, 489745 ####[facility] [address] [place] [address] Medical Director: David Doe MD PT INRon 01-04-2017 Protime Median 11.1 Second(s) Normal [facility] [place] Comment on above: Result Comment: VERI FIED by Discern Expert. Performed By: #### 1 85929, 7582919, 364369, 173158, 055681, 815640 ####[facility] [address] [place] [address] Medical Director: David Doe MD INR Coag RelTime (PPP) 1.0 {INR} Normal So [facility] Comment on above: Result Comment: Norm al reference range for INR on patients not on anticoagulant therapy: 0.9-1.1. General therapeutic range for patients on anticoagulant therapy: 2.0-3.5. Performed By: #### 1 59936, 4776169, 772692, 012737, 463761, 736807 ####[facility] [address] [place] [address] Medical Director: David Doe MD Protime Patient 11.3 Second(s) Normal 9.8-12.7 [facility] Comment on above: Performed By: #### 1 76300, 7398444, 366470, 802994, 973778, 011038 ####[facility] [address] [place] [address] Medical Director: David Doe MD XR FOOT [...] swelling. No acute fracture or joint dislocation.Technologist: OLGA,TANADictated By: Milady AGUILAR MDed By: Jose Alberto AGUILAR MD Out: 01/04/17 11:49:07 Normal [facility] Vital Signs Date Time Vital Sign Value Performing Clinician Facility 01-23-2025 09:44-0400 Body mass index (BMI) [Ratio] 43.35 kg/m2 Latasha KULKARNI Work Phone: [facility] 01-23-2025 09:44-0400 Body weight 125.56 kg Latasha Padgett PA Work Phone: [facility] 01-23-2025 09:44-0400 Diastolic blood pressure 74 mm[Hg] Latasha Dayron PA Work Phone: [facility] 01-23-2025 09:44-0400 Systolic blood pressure 122 mm[Hg] Latasha [place] PA Work Phone: [facility] 12-27-2024 10:35-0400 Body mass index (BMI) [Ratio] 42.88 kg/m2 Latasha [place] PA Work Phone: [facility] 12-27-2024 10:35-0400 Body weight 124.19 kg Latasha Dayron PA Work Phone: [facility] 12-27-2024 10:35-0400 Diastolic blood pressure 74 mm[Hg] Latasha Dayron PA Work Phone: [facility] 12-27-2024 10:35-0400 Systolic blood pressure 122 mm[Hg] Latasha Padgett PA Work Phone: [facility] 12-13-2024 13:51-0400 Body mass index (BMI) [Ratio] 43.07 kg/m2 Aditya Billy DO Work Phone: [facility] 12-13-2024 13:51-0400 Body weight 124.74 kg Aditya Billy DO Work Phone: [facility] 12-13-2024 13:51-0400 Diastolic blood pressure 70 mm[Hg] Aditya Billy DO Work Phone: [facility] 12-13-2024 13:51-0400 Systolic blood pressure 128 mm[Hg] Aditya Billy DO Work Phone: [facility] 11-22-2024 14:29-0400 Body mass index (BMI) [Ratio] 42.57 kg/m2 Aditya Billy DO Work Phone: [facility] 11-22-2024 14:29-0400 Body weight 123.29 kg Aditya Billy DO Work Phone: [facility] 11-22-2024 14:29-0400 Diastolic blood pressure 78 mm[Hg] Aditya Billy DO Work Phone: [facility] 11-22-2024 14:29-0400 Systolic blood pressure 128 mm[Hg] Aditya Billy DO Work Phone: [facility] 10-25-2024 09:07-0400 Body mass index (BMI) [Ratio] 41.86 kg/m2 Latasha KULKARNI Work Phone: [facility] 10-25-2024 09:07-0400 Body weight 121.22 kg Latasha KULKARNI Work Phone: [facility] 10-25-2024 09:07-0400 Diastolic blood pressure 82 mm[Hg] Latasha KULKARNI Work Phone: [facility] 10-25-2024 09:07-0400 Systolic blood pressure 108 mm[Hg] Latasha KULKARNI Work Phone: [facility] 09-26-2024 10:24-0400 Body mass index (BMI) [Ratio] 41.62 kg/m2 Aditya Billy DO Work Phone: [facility] 09-26-2024 10:24-0400 Body weight 120.54 kg Aditya Billy DO Work Phone: [facility] 09-26-2024 10:24-0400 Diastolic blood pressure 76 mm[Hg] Aditya Billy DO Work Phone: [facility] 09-26-2024 10:24-0400 Systolic blood pressure 124 mm[Hg] Aditya Billy DO Work Phone: [facility] 08-29-2024 09:23-0400 Body mass index (BMI) [Ratio] 41.47 kg/m2 Aditya Billy DO Work Phone: [facility] 08-29-2024 09:23-0400 Body weight 120.11 kg Aditya Billy DO Work Phone: [facility] 08-29-2024 09:23-0400 Diastolic blood pressure 66 mm[Hg] Aditya Billy DO Work Phone: [facility] 08-29-2024 09:23-0400 Systolic blood pressure 122 mm[Hg] Aditya Billy DO Work Phone: [facility] 06-14-2024 09:05-0500 Body mass index (BMI) [Ratio] 41.16 kg/m2 Latasha [place] PA Work Phone: [facility] 06-14-2024 09:05-0500 Body weight 119.2 kg Latasha Dayron PA Work Phone: [facility] 06-14-2024 09:05-0500 Diastolic blood pressure 74 mm[Hg] Latasha [place] PA Work Phone: [facility] 06-14-2024 09:05-0500 Systolic blood pressure 114 mm[Hg] Latasha Dayron PA Work Phone: [facility] 05-17-2024 08:45-0500 Body mass index (BMI) [Ratio] 41.04 kg/m2 Latasha Dayron PA Work Phone: [facility] 05-17-2024 08:45-0500 Body weight 118.84 kg Latasha Dayron PA Work Phone: [facility] 05-17-2024 08:45-0500 Diastolic blood pressure 70 mm[Hg] Latasha Dayron PA Work Phone: [facility] 05-17-2024 08:45-0500 Systolic blood pressure 118 mm[Hg] Latasha Dayron PA Work Phone: [facility] 04-18-2024 09:17-0500 Body mass index (BMI) [Ratio] 42.26 kg/m2 Latasha [place] PA Work Phone: [facility] 04-18-2024 09:17-0500 Body weight 122.38 kg Latasha [place] PA Work Phone: [facility] 04-18-2024 09:17-0500 Diastolic blood pressure 76 mm[Hg] Latasha Dayron PA Work Phone: [facility] 04-18-2024 09:17-0500 Systolic blood pressure 114 mm[Hg] Latasha Dayron PA Work Phone: [facility] 02-21-2024 14:13-0400 Body mass index (BMI) [Ratio] 39.47 kg/m2 Latasha Dayron PA Work Phone: [facility] 02-21-2024 14:13-0400 Body weight 114.31 kg Latasha Bautistaey PA Work Phone: [facility] 02-21-2024 14:13-0400 Diastolic blood pressure 74 mm[Hg] Latasha Dayron PA Work Phone: [facility] 02-21-2024 14:13-0400 Systolic blood pressure 118 mm[Hg] Latasha Padgett PA Work Phone: [facility] 07-15-2023 11:50-0500 Body mass index (BMI) [Ratio] 36.65 kg/m2 Aditya Billy DO Work Phone: [facility] 07-15-2023 11:50-0500 Body weight 106.14 kg Aditya Billy DO Work Phone: [facility] 12-04-2021 10:03-0400 Body height 173.35 cm [employer] [facility] 12-04-2021 10:03-0400 Body mass index (BMI) [Ratio] 35.22 kg/m2 [employer] [facility] 12-04-2021 10:03-0400 Body surface area Derived from formula 2.26 m2 [employer] 12-04-2021 10:03-0400 Body weight 105.83 kg [employer] 12-04-2021 10:03-0400 Diastolic blood pressure 68 mm[Hg] [employer] [facility] 12-04-2021 10:03-0400 Heart rate 68 /min [employer] 12-04-2021 10:03-0400 Systolic blood pressure 116 mm[Hg] [employer] 10-15-2020 01:15-0400 Diastolic blood pressure 71 mm[Hg] Donny Andes DO Work Phone: [employer] Work Phone: 10-15-2020 01:15-0400 SaO2% (BldA) [Mass fraction] 94 % Donny Andes DO Work Phone: [employer] Work Phone: 10-15-2020 01:15-0400 Systolic blood pressure 117 mm[Hg] Donny Andes DO Work Phone: [employer] Work Phone: 10-14-2020 23:18-0400 Body temperature 97.59 [degF] Donny Andes DO Work Phone: [employer] Work Phone: 10-14-2020 23:18-0400 Heart rate 98 /min Donny Andes DO Work Phone: [employer] Work Phone: 10-14-2020 23:18-0400 Respiratory rate 18 /min Donny Andes DO Work Phone: [employer] Work Phone: 09-23-2020 08:31-0400 Body height 172.72 cm Miguel Holley [employer] Work Phone: [facility] Work Phone: 09-23-2020 08:31-0400 Body mass index (BMI) [Ratio] 40.9 kg/m2 Miguel Holley [employer] Work Phone: [facility] Work Phone: 09-23-2020 08:31-0400 Body surface area Derived from formula 2.32 m2 Miguel Holley CNP Work Phone: [facility] Work Phone: 09-23-2020 08:31-0400 Body temperature 964 [degF] Miguel Holley CNP Work Phone: [facility] Work Phone: 09-23-2020 08:31-0400 Body weight 122.02 kg Miguel Holley CNP Work Phone: [facility] Work Phone: 09-23-2020 08:31-0400 Diastolic blood pressure 80 mm[Hg] Miguel Holley CNP Work Phone: [facility] Work Phone: 09-23-2020 08:31-0400 Heart rate 80 /min Miguel Holley CNP Work Phone: [facility] Work Phone: 09-23-2020 08:31-0400 Respiratory rate 18 /min Miguel Holley CNP Work Phone: [facility] Work Phone: 09-23-2020 08:31-0400 SaO2% (BldA) [Mass fraction] 98 % Miguel Holley CNP Work Phone: [facility] Work Phone: 09-23-2020 08:31-0400 Systolic blood pressure 126 mm[Hg] Miguel Holley CNP Work Phone: [facility] Work Phone: 04-08-2020 16:25-0500 Respiratory Rate 16 /min Miguel [facility], [place] 04-08-2020 16:20-0500 Pulse (Heart Rate) 86 /min [facility], [place] 04-08-2020 16:20-0500 Pulse Oximetry 98 % [facility] [place] 04-08-2020 16:00-0500 BP Diastolic 66 mm[Hg] [facility] [place] 04-08-2020 16:00-0500 BP Systolic 121 mm[Hg] [facility] , [place] 04-08-2020 13:23-0500 Body Temperature 98.4 [degF] [facility], [place] 03-19-2020 19:09-0400 BMI (Body Mass Index) 37.3 kg/m2 [facility] Work Phone: 03-19-2020 19:09-0400 Body weight 111.13 kg [facility] Work Phone: 03-19-2020 19:09-0400 BSA (Body Surface Area) 2.23 m2 [facility] Work Phone: 03-19-2020 19:09-0400 Height 172.72 cm [facility] Work Phone: 03-05-2020 08:30-0400 BMI (Body Mass Index) 37.3 kg/m2 [facility] Work Phone: 03-05-2020 08:30-0400 Body Temperature 95.4 [degF] [facility] Work Phone: 03-05-2020 08:30-0400 Body weight 111.13 kg [facility] Work Phone: 03-05-2020 08:30-0400 BP Diastolic 80 mm[Hg] [facility] Work Phone: 03-05-2020 08:30-0400 BP Systolic 120 mm[Hg] [facility] Work Phone: 03-05-2020 08:30-0400 BSA (Body Surface Area) 2.23 m2 [facility] Work Phone: 03-05-2020 08:30-0400 Height 172.72 cm [facility] Work Phone: 03-05-2020 08:30-0400 Pulse (Heart Rate) 74 /min [facility] Work Phone: 03-05-2020 08:30-0400 Pulse Oximetry 99 % [facility] Work Phone: 03-05-2020 08:30-0400 Respiratory Rate 18 /min [facility] Work Phone: 03-05-2020 08:30-0400 SaO2% (BldA) [Mass fraction] 99 % [facility] Work Phone: [facility] Work Phone: 12-05-2019 08:37-0400 BMI (Body Mass Index) 35.4 kg/m2 [facility] Work Phone: 12-05-2019 08:37-0400 Body Temperature 98.8 [degF] [facility] Work Phone: 12-05-2019 08:37-0400 Body weight 105.69 kg [facility] Work Phone: 12-05-2019 08:37-0400 BP Diastolic 72 mm[Hg] [facility] Work Phone: 12-05-2019 08:37-0400 BP Systolic 116 mm[Hg] [facility] Work Phone: 12-05-2019 08:37-0400 BSA (Body Surface Area) 2.18 m2 [facility] Work Phone: 12-05-2019 08:37-0400 Flow Rate 0 L/min [facility] Work Phone: 12-05-2019 08:37-0400 Height 172.72 cm [facility] Work Phone: 12-05-2019 08:37-0400 Inhaled Oxygen Concentration 21 % [facility] Work Phone: 12-05-2019 08:37-0400 Pulse (Heart Rate) 81 /min [facility] Work Phone: 12-05-2019 08:37-0400 Pulse Oximetry 98 % [facility] Work Phone: 12-05-2019 08:37-0400 Respiratory Rate 18 /min [facility] Work Phone: 12-05-2019 08:37-0400 SaO2% (BldA) [Mass fraction] 98 % [facility] Work Phone: [facility] Work Phone: 11-06-2019 09:02-0400 BMI (Body Mass Index) 36.2 kg/m2 [facility] Work Phone: 11-06-2019 09:02-0400 Body Temperature 95.8 [degF] [facility] Work Phone: 11-06-2019 09:02-0400 Body weight 107.96 kg [facility] Work Phone: 11-06-2019 09:02-0400 BP Diastolic 80 mm[Hg] [facility] Work Phone: 11-06-2019 09:02-0400 BP Systolic 110 mm[Hg] [facility] Work Phone: 11-06-2019 09:02-0400 BSA (Body Surface Area) 2.2 m2 [facility] Work Phone: 11-06-2019 09:02-0400 Height 172.72 cm [facility] Work Phone: 11-06-2019 09:02-0400 Pulse (Heart Rate) 94 /min [facility] Work Phone: 11-06-2019 09:02-0400 Pulse Oximetry 98 % [facility] Work Phone: 11-06-2019 09:02-0400 Respiratory Rate 18 /min [facility] Work Phone: 11-06-2019 09:02-0400 SaO2% (BldA) [Mass fraction] 98 % [facility] Work Phone: [facility] Work Phone: 10-12-2019 09:53-0400 BMI (Body Mass Index) 38.2 kg/m2 [facility] Work Phone: 10-12-2019 09:53-0400 Body Temperature 98.7 [degF] [facility] Work Phone: 10-12-2019 09:53-0400 Body weight 113.85 kg [facility] Work Phone: 10-12-2019 09:53-0400 BP Diastolic 82 mm[Hg] [facility] Work Phone: 10-12-2019 09:53-0400 BP Systolic 122 mm[Hg] [facility] Work Phone: 10-12-2019 09:53-0400 BSA (Body Surface Area) 2.25 m2 [facility] Work Phone: 10-12-2019 09:53-0400 Flow Rate 0 L/min [facility] Work Phone: 10-12-2019 09:53-0400 Height 172.72 cm [facility] Work Phone: 10-12-2019 09:53-0400 Inhaled Oxygen Concentration 21 % [facility] Work Phone: 10-12-2019 09:53-0400 Pulse (Heart Rate) 97 /min [facility] Work Phone: 10-12-2019 09:53-0400 Pulse Oximetry 98 % [facility] Work Phone: 10-12-2019 09:53-0400 Respiratory Rate 18 /min [facility] Work Phone: 10-12-2019 09:53-0400 SaO2% (BldA) [Mass fraction] 98 % [facility] Work Phone: [facility] Work Phone: 09-14-2019 08:35-0400 BMI (Body Mass Index) 37.7 kg/m2 [facility] Work Phone: 09-14-2019 08:35-0400 Body Temperature 96.6 [degF] [facility] Work Phone: 09-14-2019 08:35-0400 Body weight 112.49 kg [facility] Work Phone: 09-14-2019 08:35-0400 BP Diastolic 80 mm[Hg] [facility] Work Phone: 09-14-2019 08:35-0400 BP Systolic 130 mm[Hg] [facility] Work Phone: 09-14-2019 08:35-0400 BSA (Body Surface Area) 2.24 m2 [facility] Work Phone: 09-14-2019 08:35-0400 Height 172.72 cm [facility] Work Phone: 09-14-2019 08:35-0400 Pulse (Heart Rate) 81 /min [facility] Work Phone: 09-14-2019 08:35-0400 Pulse Oximetry 98 % [facility] Work Phone: 09-14-2019 08:35-0400 Respiratory Rate 18 /min [facility] Work Phone: 09-05-2019 10:26-0400 BMI (Body Mass Index) 37.3 kg/m2 [facility] Work Phone: 09-05-2019 10:26-0400 Body weight 111.13 kg [facility] Work Phone: 09-05-2019 10:26-0400 BSA (Body Surface Area) 2.23 m2 [facility] Work Phone: 09-05-2019 10:26-0400 Height 172.72 cm [facility] Work Phone: 08-17-2019 08:29-0400 BMI (Body Mass Index) 37.3 kg/m2 [facility] Work Phone: 08-17-2019 08:29-0400 Body Temperature 97.9 [degF] [facility] Work Phone: 08-17-2019 08:29-0400 Body weight 111.13 kg [facility] Work Phone: 08-17-2019 08:29-0400 BP Diastolic 80 mm[Hg] [facility] Work Phone: 08-17-2019 08:29-0400 BP Systolic 120 mm[Hg] [facility] Work Phone: 08-17-2019 08:29-0400 BSA (Body Surface Area) 2.23 m2 [facility] Work Phone: 08-17-2019 08:29-0400 Height 172.72 cm [facility] Work Phone: 08-17-2019 08:29-0400 Pulse (Heart Rate) 68 /min [facility] Work Phone: 08-17-2019 08:29-0400 Pulse Oximetry 98 % [facility] Work Phone: 08-17-2019 08:29-0400 Respiratory Rate 18 /min [facility] Work Phone: 07-20-2019 08:36-0500 BMI (Body Mass Index) 39 kg/m2 [facility] Work Phone: 07-20-2019 08:36-0500 Body Temperature 98.4 [degF] [facility] Work Phone: 07-20-2019 08:36-0500 Body weight 116.39 kg [facility] Work Phone: 07-20-2019 08:36-0500 BP Diastolic 80 mm[Hg] [facility] Work Phone: 07-20-2019 08:36-0500 BP Systolic 120 mm[Hg] [facility] Work Phone: 07-20-2019 08:36-0500 BSA (Body Surface Area) 2.27 m2 [facility] Work Phone: 07-20-2019 08:36-0500 Height 172.72 cm [facility] Work Phone: 07-20-2019 08:36-0500 Pulse (Heart Rate) 87 /min [facility] Work Phone: 07-20-2019 08:36-0500 Pulse Oximetry 97 % [facility] Work Phone: 07-20-2019 08:36-0500 Respiratory Rate 18 /min [facility] Work Phone: 07-06-2019 08:43-0500 BMI (Body Mass Index) 39.7 kg/m2 [facility] Work Phone: 07-06-2019 08:43-0500 Body Temperature 97.3 [degF] [facility] Work Phone: 07-06-2019 08:43-0500 Body weight 118.39 kg [facility] Work Phone: 07-06-2019 08:43-0500 BP Diastolic 82 mm[Hg] [facility] Work Phone: 07-06-2019 08:43-0500 BP Systolic 122 mm[Hg] [facility] Work Phone: 07-06-2019 08:43-0500 BSA (Body Surface Area) 2.29 m2 [facility] Work Phone: 07-06-2019 08:43-0500 Height 172.72 cm [facility] Work Phone: 07-06-2019 08:43-0500 Pulse (Heart Rate) 78 /min [facility] Work Phone: 07-06-2019 08:43-0500 Pulse Oximetry 98 % [facility] Work Phone: 07-06-2019 08:43-0500 Respiratory Rate 18 /min [facility] Work Phone: Encounters Encounter Date Encounter Type Care Provider Facility Start: 01-23-2025 End: 01-23-2025 Isiah KULKARNI Work Phone: [facility] Start: 01-23-2025 End: 01-23-2025 Bamboo flowsheet Latasha KULKARNI Work Phone: [facility] Start: 01-23-2025 End: 01-23-2025 Office outpatient visit 15 minutes Latasha KULKARNI Work Phone: [facility] Comment on above: Third trimester preg robson ([facility]); 34 weeks gestation of ([facility]) Start: 01-23-2025 End: 01-23-2025 ambulatory LATASHA PADGETT Not Available Start: 01-19-2025 End: 01-19-2025 Clinisync Result Encounter Aditya Billy DO Work Phone: [facility] Unsolicited Start: 01-19-2025 End: 01-19-2025 Clinisync Result Encounter Aditya Billy DO Work Phone: [facility] Unsolicited Start: 01-09-2025 End: 01-09-2025 Bamboo flowsheet Aditya Billy DO Work Phone: [facility] Start: 01-09-2025 End: 01-09-2025 Bamboo flowsheet Aditya Billy DO Work Phone: [facility] Start: 01-09-2025 End: 01-09-2025 Office outpatient visit 15 minutes Aditya Billy DO Work Phone: [facility] Comment on above: Third trimester preg robson ([facility]); 32 weeks gestation of ([facility]); Gestational diabetes mellitus (GDM), antepartum, gestational diabetes method of control unspecified ([facility]); Hyperglycemia during ([facility]) Start: 01-09-2025 End: 01-09-2025 ambulatory ADITYA BILLY Not Available Start: 12-27-2024 End: 12-27-2024 Bamboo flowsheet Latasha KULKARNI Work Phone: [facility] Start: 12-27-2024 End: 12-27-2024 Bamboo flowsheet Latasha KULKARNI Work Phone: [facility] Start: 12-27-2024 End: 12-27-2024 ambulatory ADITYA BILLY Not Available Start: 12-27-2024 End: 12-27-2024 Office outpatient visit 15 minutes Latasha KULKARNI Work Phone: [facility] Comment on above: Third trimester preg robson ([facility]) Start: 12-13-2024 End: 12-13-2024 ambulatory ADITYA BILLY Not Available Start: 12-13-2024 End: 12-13-2024 Office outpatient visit 15 minutes Aditya Billy DO Work Phone: [facility] Comment on above: Elevated glucose rikki erance test; History of gestational diabetes; Third trimester ([facility]); 28 weeks gestation of ([facility]); Gestational diabetes mellitus (GDM), antepartum, gestational diabetes method of control unspecified ([facility]) Start: 12-12-2024 End: 12-12-2024 Clinisync Result Encounter [...] Result Encounter Aditya Billy DO Work Phone: [facility] External Department Unsolicited Start: 10-17-2024 End: 10-30-2024 Clinisync Result Encounter Aditya Billy DO Work Phone: [facility] Unsolicited Start: 10-17-2024 End: 10-17-2024 ambulatory ADITYA ANGELICA CERVANTES [facility] Start: 10-17-2024 End: 10-17-2024 Subsequent hospital visit by physician Miguel Stewart CNP Work Phone: [facility] Start: 09-26-2024 End: 09-26-2024 Bamboo [...] encounter procedure Aditya Billy DO Work Phone: [facility] Healthcare Start: 09-26-2024 End: 09-26-2024 Periodic preventive med est patient 18-39 yrs Aditya Billy DO Work Phone: [facility] Comment on above: Screening, , for anatomic survey; Well woman exam with routine gynecological exam; STD exposure; Vaginal discharge; Second trimester ; 17 weeks gestation of Start: 08-29-2024 End: 08-29-2024 Bamboo flowsheet Aditya Billy DO Work Phone: [facility] Start: 08-29-2024 End: 08-29-2024 Bamboo flowsheet Aditya Billy DO Work Phone: [facility] Start: 08-29-2024 End: 08-29-2024 Office outpatient visit 15 minutes Aditya Billy DO Work Phone: [facility] Comment on above: First trimester [...] Result Encounter Aditya Billy DO Work Phone: [facility] External Department Unsolicited Start: 06-14-2024 End: 06-14-2024 Bamboo flowsheet Latasha Padgett PA Work Phone: [facility] Start: 06-14-2024 End: 06-14-2024 Bamboo flowsheet Latasha Padgett PA Work Phone: [facility] Start: 06-14-2024 End: 06-14-2024 ambulatory LATASHA PADGETT Not Available Start: 06-14-2024 End: 06-14-2024 Office outpatient visit 15 minutes Latasha Padgett PA Work Phone: [facility] Comment on above: Encounter for weight management Start: 05-17-2024 End: 05-17-2024 Bamboo flowsheet Latasha Padgett PA Work Phone: [facility] Start: 05-17-2024 End: 05-17-2024 Bamboo flowsheet Latasha Padgett PA Work Phone: [facility] Start: 05-17-2024 End: 05-17-2024 Patient encounter procedure Latasha Padgett PA Work Phone: [facility] Comment on above: Weight gain; Encounter for weight management Start: 05-17-2024 End: 05-17-2024 ambulatory LATASHA PADGETT Not Available Start: 04-18-2024 End: 04-18-2024 Bamboo flowsheet Latasha Padgett PA Work Phone: [facility] Start: 04-18-2024 End: 04-18-2024 Bamboo flowsheet Latasha Padgett PA Work Phone: [facility] Start: 04-18-2024 End: 04-18-2024 ambulatory LATASHA PAGDETT Not Available Start: 04-18-2024 End: 04-18-2024 Office [...] End: 01-01-2023 Patient encounter procedure Miguel Holley ASSOCIATE CIVIL ENGINEER - ESTHETICIAN MAKEUP ARTIST Work Phone: [facility] Start: 01-01-2023 End: 01-01-2023 Subsequent hospital visit by physician Miguel Holley APRN - ESTHETICIAN MAKEUP ARTIST Work Phone: [facility] Comment on above: Women's annual routi ne gynecological examination Start: 12-16-2021 End: 12-16-2021 Subsequent hospital visit by physician Miguel Holley APRN - ESTHETICIAN MAKEUP ARTIST Work Phone: [facility] Start: 12-04-2021 Split Srvc Shona Jenkins rne Other [facility] Office Start: 10-02-2021 End: 10-02-2021 Patient encounter procedure Miguel Holley ASSOCIATE CIVIL ENGINEER - ESTHETICIAN MAKEUP ARTIST Work Phone: [facility] Start: 10-02-2021 End: 10-02-2021 Subsequent hospital visit by physician Miguel Holley APRN - ESTHETICIAN MAKEUP ARTIST Work Phone: [facility] Comment on above: Women's annual routi ne gynecological examination Start: 10-14-2020 End: 10-15-2020 Emergency department patient visit Donny Hatfield DO Work Phone: [facility] ED Comment on above: Nausea vomiting and diarrhea (Primary Dx); Generalized abdominal pain Start: 09-23-2020 End: 09-24-2020 ambulatory MIGUEL HOLLEY [facility] Start: 09-23-2020 End: 09-23-2020 Subsequent hospital visit by physician Miguel Holley APRN - ESTHETICIAN MAKEUP ARTIST Work Phone: [facility] Start: 09-23-2020 End: 09-23-2020 General Jammie Javier RODAS Work Phone: [facility] Work Phone: Start: 09-23-2020 End: 09-23-2020 Adult health examination Miguel Holley ESTHETICIAN MAKEUP ARTIST Work Phone: [facility] Work Phone: Start: 09-23-2020 End: 09-23-2020 [facility] visit, estab pt Miguel Holley [facility] Work Phone: [facility] Work Phone: Start: 04-08-2020 End: 04-08-2020 Emergency department patient visit [facility] ED Comment on above: COVID-19 (Primary Dx ); Fatty liver Start: 03-19-2020 End: 03-19-2020 Telemedicine consultation with patient Miguel Holley Work Phone: [facility] Work Phone: Start: 03-05-2020 End: 03-05-2020 Established patient Miguel Holley Work Phone: [facility] Work Phone: Start: 12-05-2019 End: 12-05-2019 Established patient Poly Franco Work Phone: [facility] Work Phone: Start: 11-06-2019 End: 11-06-2019 Established patient Poly Farnco Work Phone: [facility] Work Phone: Start: 10-12-2019 End: 10-12-2019 Patient encounter procedure Paty Goldsmith Work Phone: [facility] Work Phone: Start: 10-12-2019 End: 10-12-2019 Established patient Poly Franco Work Phone: [facility] Work Phone: Start: 09-14-2019 End: 09-14-2019 Established patient Poly Franco Work Phone: [facility] Work Phone: Start: 09-11-2019 End: 09-11-2019 Telemedicine consultation with patient Poly Franco Work Phone: [facility] Work Phone: Start: 09-05-2019 End: 09-05-2019 Telemedicine consultation with patient Poly Franco Work Phone: [facility] Work Phone: Start: 08-17-2019 End: 09-11-2019 Telemedicine consultation with patient Poly Franco Work Phone: [facility] Work Phone: Start: 08-17-2019 End: 08-17-2019 Established patient Miguel Holley Work Phone: [facility] Work Phone: Start: 07-20-2019 End: 07-20-2019 Established patient Miguel Holley Work Phone: [facility] Work Phone: Start: 07-06-2019 End: 07-06-2019 Subsequent hospital visit by physician Jackson [facility] Start: 07-06-2019 End: 07-06-2019 Established patient Anh Virk Work Phone: [facility] Work Phone: Start: 07-06-2019 End: 07-06-2019 New patient Allyson Floyd Work Phone: [facility] Work Phone: Start: 02-02-2019 End: 02-04-2019 Subsequent hospital visit by physician [facility] Ultrasound Room [facility] Ultrasound Comment on above: Encounter for intrau terine device placement Start: 08-21-2018 End: 08-23-2018 Patient encounter procedure [facility] Start: 01-04-2017 End: 01-04-2017 Emergency department patient visit [address] [facility] Facility:[id number] Procedures Date Procedure Procedure Detail Performing Clinician [...] in Cervix by Cyto stain Miguel Holley ASSOCIATE CIVIL ENGINEER - ESTHETICIAN MAKEUP ARTIST Work Phone: Start: 12-16-2021 Assay of blood/uric acid Dedrick Wood PA-C Work Phone: Start: 12-16-2021 C-reactive protein Robel KULKARNI-Marisa Work Phone: Start: 12-04-2021 Nerve conduction [facility] dies 9-10 studies Shona Lucio Start: 10-02-2021 Microscopic observat ion [Identifier] in Cervix by Cyto stain Miguel Holley ASSOCIATE CIVIL ENGINEER - ESTHETICIAN MAKEUP ARTIST Work Phone: Start: 10-15-2020 Urinalysis microscop ic [...] blood pressure < 80 mm hg Miguel Dell ESTHETICIAN MAKEUP ARTIST Work Phone: Start: 09-23-2020 Most recent systolic blood pressure <130 mm hg Miguel Holley ESTHETICIAN MAKEUP ARTIST Work Phone: Start: 09-23-2020 Pt-focused hlth risk assmt score doc stnd instrm Miguel Holley ESTHETICIAN MAKEUP ARTIST Work Phone: Start: 09-23-2020 Antibody hiv-1&hiv-2 single result Miguel Holley ESTHETICIAN MAKEUP ARTIST Work Phone: Start: 09-23-2020 Comprehensive metabo lic panel Miguel Holley ASSOCIATE CIVIL ENGINEER - ESTHETICIAN MAKEUP ARTIST Work Phone: Start: 04-08-2020 Ct thorax w/contrast material Ninoska Lopes Work Phone: Start: 04-08-2020 COVID-19 Ninoska Herron alejandro Work Phone: Start: 04-08-2020 Urine test visual color cmprsn meths Ninoska Lopes Work Phone: Start: 04-08-2020 Assay of troponin quantitative Ninoska Marianne Work Phone: Start: 04-08-2020 Blood count complete automated Ninoskamaame Lopes Work Phone: Start: 04-08-2020 Comprehensive metabo lic panel Ninoska Marianne Work Phone: Start: 04-08-2020 Natriuretic peptide [facility] ruddy Lopes Work Phone: Start: 04-08-2020 Prothrombin time Ninoskamaame Lopes Work Phone: Start: 04-08-2020 Thromboplastin time partial plasma/whole blood Ninoskamaame Lopes Work Phone: Start: 12-05-2019 Diast bp <80 mm hg Poly Salvador Work Phone: Start: 12-05-2019 Syst bp lt 130 mm hg Ka ra Franco Work Phone: Start: 11-06-2019 Diast bp 80-89 mm hg Ka ra Franco Work Phone: Start: 11-06-2019 Syst bp lt [address] Franco Work Phone: Start: 10-12-2019 Diast bp 80-[address] Franco Work Phone: Start: 10-12-2019 Syst bp lt [address] Franco Work Phone: Start: 09-14-2019 Diast bp 80-[address] Franco Work Phone: Start: 09-14-2019 Syst bp ge 130 - 139mm hg Poly Franco Work Phone: Start: 08-17-2019 Diast bp <80 mm hg Humza Anguloen Work Phone: Start: 08-17-2019 Syst bp lt [...] in Cervix by Cyto stain Miguel Holley ASSOCIATE CIVIL ENGINEER - ESTHETICIAN MAKEUP ARTIST Work Phone: H/O: section S/P jose carlos [...] malign ant neoplasm of cervix Pap smear [facility] Start: 02-07-2025 End: 02-07-2025 Patient encounter procedure 02/07/2025 10:50 AM EDT Routine [facility] [address] [place] [phone] Aditya Cervantes, [address] [place] [address] [facility] Start: 02-06-2025 End: 02-06-2025 Patient encounter procedure 02/06/2025 10:10 AM EDT Routine [facility] [address] [place] [phone] Aditya Cervantes, [address] [place] [address] [facility] Start: 01-29-2025 Influenza vaccination Influenza Vacc ine (#1) [facility] Start: 01-23-2025 End: 01-23-2025 Patient encounter procedure [facility] Comment on above: Arrived Start: 01-10-2025 End: 01-10-2025 Patient encounter procedure 01/10/2025 1:00 PM EDT Routine [facility] [address] [place] [phone] Aditya Cervantes DO [address] [place] [address] [facility] Start: 01-09-2025 End: 07-12-2025 US biophysical profile w non stress test US biophysical profile w non stress test Imaging Routine Hyperglycemia during ([facility]) Expected: 01/09/2025 (Approximate), Expires: 07/12/2025 [facility] Work Phone: Comment on above: Expected: 01/09/2025 (Approximate), Expires: 07/12/2025 Start: 01-09-2025 End: 01-09-2025 Patient encounter procedure [facility] Comment on above: Arrived Start: 12-29-2024 Influenza vaccination Flu vacc ine (Season Ended) [facility] Start: 12-27-2024 End: 12-27-2024 Professional / ancillary services management [facility] Start: 12-27-2024 End: 12-27-2024 Patient encounter procedure 12/27/2024 10:20 AM EDT Routine [facility] [address] [place] [phone] Latasha Padgett PA [address] [place] [address] [facility] Start: 12-13-2024 End: 12-13-2024 Patient encounter procedure 12/13/2024 1:40 PM EDT Routine [facility] [address] [place] [phone] Aditya Cervantes, DO [address] [place], [place] [id number] [facility] Start: 12-06-2024 End: 12-06-2025 Measurement of glucose 3 hours after glucose challenge for glucose tolerance test Glucose tolerance, 3 hours Lab Routine Elevated glucose tolerance test Expected: 12/06/2024 (Approximate), Expires: 12/06/2025 [facility] Work Phone: Comment on above: Expected: 12/06/2024 (Approximate), Expires: 12/06/2025 Start: 11-22-2024 End: 11-22-2025 12 lead ECG ECG 12 lead unit performed ECG Routine Dizziness Expected: 11/22/2024 (Approximate), Expires: 11/22/2025 [facility] Work Phone: Comment on above: Expected: 11/22/2024 (Approximate), Expires: 11/22/2025 Start: 11-22-2024 End: 11-22-2025 CBC panel - Blood by Automated count CBC Lab Routine Diabetes mellitus screening Expected: 11/22/2024 (Approximate), Expires: 11/22/2025 [facility] Work Phone: Comment on above: Expected: 11/22/2024 (Approximate), Expires: 11/22/2025 Start: 11-22-2024 End: 11-22-2025 Measurement of glucose 1 hour after glucose challenge for glucose tolerance test Glucose tolerance, 1 hour Lab Routine Diabetes mellitus screening Expected: 11/22/2024 (Approximate), Expires: 11/22/2025 [facility] Comment on above: Expected: 11/22/2024 (Approximate), Expires: 11/22/2025 Start: 11-22-2024 End: 11-22-2024 Patient encounter procedure 11/22/2024 1:50 PM EDT Routine [facility] [address] [address] Aditya Cervantes DO [address] [place] [address] [facility] Start: 10-25-2024 End: 10-25-2024 Patient encounter procedure 10/25/2024 9:30 AM EDT Routine [facility] [address] [place] [phone] Latasha Padgett PA [address] [place], [place] [phone] [facility] Start: 10-25-2024 End: 10-25-2024 Professional / ancillary services management 10/25/2024 8:00 AM EDT Ancillary Procedure [facility] [address] [place] [address] [facility] Start: 10-02-2024 Screening for malign ant neoplasm of cervix Pap smear [facility] Start: 09-26-2024 End: 11-26-2024 Alpha fetoprotein, [...] Routine [facility] [address] [place] [address] Aditya Cervantes, DO [address] [place] [address] [facility] Start: 08-29-2024 End: 08-29-2024 Patient encounter procedure 08/29/2024 9:20 AM EDT Routine [facility] [address] [place] [phone] Aditya Cervantes, DO [address] [place] [address] Arrived [facility] Comment on above: Arrived Start: 08-04-2024 End: 08-04-2024 ambulatory 08/04/2024 9:00 AM EST Initial [facility] [address] [place] [address] [facility] Start: 08-04-2024 End: 08-04-2024 Professional / ancillary services management 08/04/2024 8:30 AM EST Ancillary Procedure [facility] [address] [place] [phone] [facility] Start: 07-12-2024 End: 07-12-2024 Patient encounter procedure 07/12/2024 8:30 AM EST Office Visit [facility] [address] [place] [phone] Latasha Padgett PA [address] [place] [address] [facility] Start: 05-17-2024 End: 05-17-2024 Patient encounter procedure [facility] Comment on above: Arrived Start: 05-10-2024 End: 05-10-2024 Patient encounter procedure 05/10/2024 8:40 AM EST Office Visit [facility] [address] [place] [address] Latasha Padgett, PA [address] [place] [address] [facility] Start: 01-30-2024 COVID-19 Vaccine ( season) COVID-19 Vaccine ( season) [facility] Start: 01-30-2024 Influenza vaccination Influenza Vacc ine (#1) [facility] Start: 08-19-2023 End: 08-19-2023 Patient encounter procedure 08/19/2023 11:00 AM EDT Routine [facility] [address] [place] [phone] Latasha Padgett, PA [address] [place] [address] [facility] Start: 08-19-2023 End: 08-19-2023 Professional / ancillary services management 08/19/2023 10:00 AM EDT Ancillary Procedure [facility] [address] [place] [address] [facility] Start: 01-20-2023 End: 01-20-2023 Admission to same day surgery center 01/20/2023 Surgery IP Unit Mychal Nichols MD [address] [place] [address] HYSTEROSCOPY - IUD REMOVAL [facility] Comment on above: HYSTEROSCOPY - IUD R EMOVAL Start: 01-20-2023 End: 01-20-2023 Hysteroscopy removal impacted foreign body HYSTEROSCOPY Intrauterine contraceptive device threads lost, initial encounter 01/20/2023 11:10 AM EDT [facility] Start: 01-20-2023 Subsequent hospital visit by physician 01/20/2023 Hospital Encounter IP Unit Mychal Nichols MD [address] [place] [address] [facility] Start: 12-29-2022 Influenza vaccination Flu vaccine (# 1) [facility] Start: 04-27-2022 End: 04-27-2022 Patient encounter procedure [facility] Start: 01-29-2022 Influenza vaccination [facility] Start: 02-07-2021 Cervical cancer screen Cervical canc er screen [facility] [place], [place] Start: 02-07-2021 Screening for malign ant neoplasm of cervix [facility] Start: 01-29-2021 Influenza vaccination Flu vacc ine (Season Ended) [facility] Work Phone: Start: 09-30-2020 CBC W Auto Different ial panel - Blood [facility] Start: 09-30-2020 Lipid 1996 panel - Serum or Plasma LIPID PROFILE [facility] Start: 09-23-2020 Psychiatry Health [facility] Work Phone: Comment on above: Note: Please make a referral to: Start: 03-26-2020 SARS-CoV-2, [facility] Work Phone: Start: 03-19-[address] up Testing [facility] Work Phone: Start: 02-06-2020 Medical Establ ished Patient [facility] Work Phone: Start: 01-30-2020 Influenza vaccination Flu vaccine (# 1) [place], [place] Start: 11-09-2019 Medical Establ ished Patient [facility] Work Phone: Start: 10-11-2019 Medical Establ ished Patient [facility] Work Phone: Start: 09-14-2019 Medical Establ ished Patient [facility] Work Phone: Start: 08-17-2019 Medical Establ ished Patient [facility] Work Phone: Start: 07-20-2019 Medical Establ ished Patient [facility] Work Phone: Start: 07-13-2019 Lipid 1996 panel [facility] Work Phone: Start: 02-14-2019 End: 02-14-2019 Office Visit 02/14/2019 Office Visit Obstetrics and Gynecology Pilar Marie APRN - [facility] [address] [place] [address] [phone] [facility] FINANCIAL ANALYST INTERN Start: 02-07-2019 Chlamydia screen Chlamydia screen [place], [place] Start: 02-07-2019 Screening for Chlamy valentino trachomatis Chlamydia screen [facility] Start: 01-29-2019 Influenza vaccination Flu vaccine (# 1) [place] Start: 10-29-2017 DTaP/Tdap/Td vaccine (2 - Td or Tdap) DTaP/Tdap/Td vaccine (2 - Td or Tdap) [facility] Start: 10-29-2017 DTaP/Tdap/Td vaccine (2 - Td) DTaP/Tdap/Td vaccine (2 - Td) [place], [place] Start: 2015 Hepatitis B vaccine (1 of 3 - 19+ 3-dose series) Hepatitis B vaccine (1 of 3 - 19+ 3-dose series) [facility] Start: 2014 Hepatitis C screening Hepatitis C [facility] Start: 2012 COVID-19 Vaccine (1) COVID-19 Vaccin e (1) [facility] [employer] Phone: Start: 2011 HIV screen HIV screen [place], [place] Start: 2011 HIV screening HIV screen [facility] Start: 2011 HPV vaccine (1 - Fem shiela 3-dose series) HPV vaccine (1 - Female 3-dose series) [place], [place] Start: 2009 Varicella Vaccine (1 of 2 - 13+ 2-dose series) Varicella Vaccine (1 of 2 - 13+ 2-dose series) [facility] Start: 2008 COVID-19 Vaccine (1) COVID-19 Vaccin e (1) [facility] Phone: Start: 2008 Depression Screen Depression Screen [facility] Start: 2007 HPV vaccine (1 - 2-d ose series) HPV vaccine (1 - 2-dose series) [facility] Start: 2007 HPV vaccine (1 - Fem shiela 2-dose series) HPV vaccine (1 - Female 2-dose series) [facility] Phone: Start: 2001 COVID-19 Vaccine (1) COVID-19 Vaccin e (1) [facility] Start: 1997 Varicella vaccine (1 of 2 - 2-dose childhood series) Varicella vaccine (1 of 2 - 2-dose childhood series) [facility] Start: 1996 COVID-19 Vaccine (#1) COVID-19 Vacci ne (#1) [facility] Start: 1996 Hepatitis C screening Hepatitis C [facility] Phone: End: 10-17-2024 Alpha Fetoprotein, Maternal [facility] Phone: Comment on above: Once for 1 Occurrenc es starting 10/17/2024 until 10/17/2024 End: 12-16-2021 GLENNY Screen with Reflex [facility] Phone: Comment on above: Once for 1 Occurrenc es starting 12/16/2021 until 12/16/2021 CHLAMYDIA TRACHOMATI S (GENITO/STI) CHLAMYDIA TRACHOMATIS (GENITO/STI) Lab Routine STD exposure Vaginal discharge Ordered: 09/26/2024 [facility] [employer] Comment on above: Ordered: 09/26/2024 Cytology Cervical or vaginal smear or scraping study Pap Smear Pathology and Cytology Routine Well woman exam with routine gynecological exam Ordered: 09/26/20[email or web address] on above: Ordered: 09/26/2024 End: 10-02-2021 Cytopathology procedure, preparation of smear, genital source PAP SMEAR Lab Routine Women's annual routine gynecological examination 1 Occurrences starting 10/02/2021 until 10/02/2021 [employer] Phone: Comment on above: 1 Occurrences starti ng 10/02/2021 until 10/02/2021 End: 01-01-2023 Cytopathology procedure, preparation of smear, genital source PAP SMEAR Lab Routine Women's annual routine gynecological examination 1 Occurrences starting 01/01/2023 until 01/01/2023 [facility] Phone: Comment on above: 1 Occurrences starti ng 01/01/2023 until 01/01/2023 End: 12-16-2021 HLA-B27 Antigen [facility] Phone: Comment on above: Once for 1 Occurrenc es starting 12/16/2021 until 12/16/2021 End: 07-06-2019 Insulin, free Insulin, free Lab Routine Once for 1 Occurrences starting 07/06/2019 until 07/06/2019 [employer] Phone: Comment on above: Once for 1 Occurrenc es starting 07/06/2019 until 07/06/2019 Insulin, free Insulin, free La b Routine 07/06/2019 9:31 AM EST [employer] Phone: End: 12-16-2021 Lyme Ab [employer] [facility] [employer] Work Phone: Comment on above: Once for 1 Occurrenc es starting 12/16/2021 until 12/16/2021 Neisseria gonorrhoea e DNA [Presence] in Unspecified specimen by KAILA with probe detection Neisseria gonorrhea DNA probe, direct Lab Routine STD exposure Vaginal discharge Ordered: 09/26/2024 [facility] Comment on above: Ordered: 09/26/2024 SURESWAB(R) ADVANCED VAGINITIS PLUS, TMA SURESWAB(R) ADVANCED VAGINITIS PLUS, TMA Pathology and Cytology Routine STD exposure Vaginal discharge Ordered: 09/26/2024 [facility] Work Phone: Comment on above: Ordered: 09/26/2024 End: 02-13-2025 US for US OB follow up transabdominal approach Imaging Routine Elevated glucose tolerance test Gestational diabetes mellitus (GDM), antepartum, gestational diabetes method of control unspecified ([facility]) q4 weeks for 4 Occurrences starting 12/13/2024 until 02/13/2025 [facility] Comment on above: q4 weeks for 4 Occur rences starting 12/13/2024 until 02/13/2025 Immunizations Immunization Date Immunization Notes Care Provider Em de la cruz 10-30-2007 tetanus toxoid, redu katelyn diphtheria toxoid, and acellular pertussis vaccine, adsorbed [facility] Payers Date Payer Category Payer Medicaid [id number] 2023 Medicaid [id number] 2023 Unknown TONYA LEIVA [facility] [employer] [id number] 2023-Present [address] [address] [place] [address] [id number] 2022 Unknown [employer] [address] [id number] 2022-Present [address] [place] [address] [id number] .[id number] 2018 Unknown [id number] [id number] 99.5.10.6.3 2016 Unknown [employer] [address] xxxxxxxxxxxx 2016-Present [phone] [address] [place] [address] xxxxxxxxxxxx [id number] .[id number] 1996 Unknown [id number] 2.16.840.1.380093.3.579.2.175 1996 Unknown [id number] 2.16.840.1.214907.3.579.2.173 1996 Unknown [id number] 2.16.840.1.398160.3.579.2.125 9 1996 Unknown [id number] 2.16.840.1.018364.3.579.2.125 9 1996 Unknown [id number] 2.16.840.1.743876.3.579.2.125 9 1996 Unknown [id number] 2.16.840.1.464927.3.579.2.125 9 1996 Unknown [id number] 2.16.840.1.145780.3.579.2.125 9 1996 Unknown [id number] 2.16.840.1.877628.3.579.2.125 9 1996 Unknown [id number] 2.16.840.1.456289.3.579.2.125 9 1996 Unknown [id number] 2.16.840.1.919013.3.579.2.125 9 1996 Unknown [id number] 2.16.840.1.846109.3.579.2.125 9 1996 Unknown [id number] 2.16.840.1.081954.3.579.2.125 9 1996 Unknown [id number] 2.16.840.1.541593.3.579.2.125 9 1996 Unknown [id number] 2.16.840.1.329915.3.579.2.125 9 1996 Unknown [id number] 2.16.840.1.167687.3.579.2.125 9 1996 Unknown [id number] 2.16.840.1.531202.3.579.2.125 9 1996 Unknown [id number] 2.16.840.1.207605.3.579.2.125 9 1996 Unknown [id number] 2.16.840.1.967599.3.579.2.125 9 Unknown [id number] 2.16.840.1.196020.3.441 Social History Date Type Detail Facility Assertion [facility] Work Phone: Assertion Emotional stress (finding) [facility] Work Phone: Tobacco smoking status Unknown if ever smoked [facility] Assertion Sexually active (finding) [facility] Work Phone: Assertion Gender identity finding (finding) [facility] Work Phone: Assertion Finding of sexua l orientation (finding) [facility] Work Phone: Start: 02-07-2018 End: 01-06-2023 Tobacco smoking status [facility]IS [facility] Start: 02-07-2018 End: 01-20-2023 Alcohol intake Current drinker of alcohol (finding) [facility] [employer] Phone: Start: 12-12-2015 Alcohol Comment occassionally [place], [place] Start: 1996 Sex Assigned At Not on file [employer], ROBBY Start: 04-08-2020 End: 01-06-2023 Tobacco use and exposure Never used [employer] ROBBY Exposure to SARS-CoV-2 (event) Not sure [employer], ROBBY Start: 02-07-2018 End: 01-20-2023 [facility] Assertion Family illness (situation) [facility] Work Phone: Assertion Single person (finding) [facility] Work Phone: Start: *Tobacco [facility] [employer] Start: 04-15-2023 [facility] Start: 01-20-2023 History of Social function [facility] Start: 10-12-2013 Sex Female (finding) [facility] [employer] NEGATED: Highlighted row Assertion Exposure to pollution (event) [facility] Work Phone: NEGATED: Highlighted row Assertion Tobacco user (finding) [facility] Work Phone: NEGATED: Highlighted row Assertion Current drinker of alcohol (finding) [facility] Work Phone: NEGATED: Highlighted row Assertion Finding relating to drug misuse behavior (finding) [facility] Work Phone: Mental Status Date Assessment Result Facility Cognitive function Cognitive fun ctioning was normal Cognitive function finding (finding) [facility] Work Phone: Clinical Notes 11-06-2019 to 01-23-2025 CAYLA Kwok - 01/23/2025 9:50 AM Leatha Cervantes DO - 01/09/2025 11:10 AM CAYLA Bartlett - 12/27/2024 10:20 AM Olive Dong LPN - 12/13/2024 1:40 PM CAYLA Bartlett - 11/22/2024 1:50 PM EDT Note Date & Type Note Facility 01-23-2025 History of Presen t illness Narrative Reason [...] Excessive growth affecting management of mother, antepartum ([facility]) 12/06/2023 Third trimester ([facility]) 12/06/2023 No Additional Past Medical History HISTORY [...] Vitals: Estimated body mass index is 43.35 kg/m as calculated from the following: Height as of 01/10/24: 5' 7 . Weight as of this encounter: 276 lb 12.8 oz. BP: 122/74 No LMP recorded. Patient is . ASSESSMENT & PLAN ICD-10-CM 1. Third trimester ([facility]) Z34.93 CANCELED: POCT urinalysis dipstick manually resulted 2. 34 weeks gestation of ([facility]) Z3A.34 CANCELED: POCT urinalysis dipstick manually resulted [...] of: CAYLA Kwok documented in this encounter [facility] 01-09-2025 History of Presen t illness Narrative [...] Excessive growth affecting management of mother, antepartum ([facility]) 12/06/2023 Third trimester ([facility]) 12/06/2023 No Additional Past Medical History Family [...] nursing note reviewed. Exam conducted with a grocery clerk checking present. Vitals: Estimated body mass index is 42.88 kg/m as calculated from the following: Height as of 01/10/24: 5' 7 . Weight as of 12/27/24: 273 lb 12.8 oz. BP: No LMP recorded. Patient is . Assessment/Plan Encounter Diagnosis: ICD-10-CM 1. Third trimester ([facility]) Z34.93 POCT urinalysis dipstick manually resulted 2. 32 weeks gestation of ([facility]) Z3A.32 3. Gestational diabetes mellitus (GDM), antepartum, gestational diabetes method of control unspecified ([facility]) O24.419 4. Hyperglycemia during ([facility]) O99.810 US biophysical profile w non stress [...] DO documented in this encounter [facility] 12-27-2024 History of Presen t illness Narrative [...] Excessive growth affecting management of mother, antepartum ([facility]) 12/06/2023 Third trimester ([facility]) 12/06/2023 No Additional Past Medical History HISTORY [...] nursing note reviewed. Exam conducted with a grocery clerk checking present. Vitals: Estimated body mass index is 42.88 kg/m as calculated from the following: Height as of 24: 5' 7 . Weight as of this encounter: 273 lb 12.8 oz. BP: 122/74 No LMP recorded. Patient is . ASSESSMENT & PLAN ICD-10-CM 1. Third trimester ([facility]) Z34.93 POCT urinalysis dipstick manually resulted [...] routine OB appointment. documented in this encounter [facility] 12-13-2024 History of Presen t illness Narrative [...] Excessive growth affecting management of mother, antepartum ([facility]) 12/06/2023 Third trimester ([facility]) 12/06/2023 No Additional Past Medical History HISTORY [...] of gestational diabetes Z86.32 3. Third trimester ([facility]) Z34.93 POCT urinalysis dipstick manually resulted 4. 28 weeks gestation of ([facility]) Z3A.28 POCT urinalysis dipstick manually resulted Return [...] DO documented in this encounter [facility] 11-22-2024 History of Presen t illness Narrative [...] Excessive growth affecting management of mother, antepartum ([facility]) 12/06/2023 Third trimester ([facility]) 12/06/2023 No Additional Past Medical History HISTORY [...] PLAN ICD-10-CM 1. 25 weeks gestation of ([facility]) Z3A.25 POCT urinalysis dipstick manually resulted 2. Second trimester ([facility]) Z34.92 POCT urinalysis dipstick manually resulted 3. [...] DO documented in this encounter [facility] 10-25-2024 History of Presen t illness Narrative [...] of: CAYLA Kwok documented in this encounter [facility] 09-26-2024 History of Presen t illness Narrative [...] nursing note reviewed. Exam conducted with a grocery clerk checking present. Vitals: Estimated body mass index is [...] DO documented in this encounter [facility] 08-29-2024 History of Presen t illness Narrative [...] nursing note reviewed. Exam conducted with a grocery clerk checking present. Vitals: Estimated body mass index is [...] or undercooked meat, and stay away from [facility]. Patient has been consulted regarding any further do's and don'ts of . Patient voiced understanding and all questions and concerns were answered. Orders Placed This Encounter Procedures POCT urinalysis dipstick manually resulted Follow Up: Patient is to return in 4 weeks for routine OB appointment. Documented by Lindsey Dong LPN on behalf of: Aditya Cervantes DO documented in this encounter [facility] 06-14-2024 History of Presen t illness Narrative [...] of: CAYLA Kwok documented in this encounter [facility] 05-17-2024 History of Presen t illness Narrative [...] of CAYLA Kwok documented in this encounter [facility] 04-18-2024 History of Presen t illness Narrative [...] of: CAYLA Kwok documented in this encounter [facility] 02-21-2024 History of Presen t illness Narrative [...] of: CAYLA Kwok documented in this encounter [facility] 07-15-2023 History of Presen t illness Narrative [...] DO documented in this encounter [facility] 09-23-2020 Evaluation note Includes: Assessments for all patient encounters Findings Anxiety disorder NOS Telebehavioral H ealth with Jammie RODAS 09/23/2020 Assessment of visit for: screening for human immunodeficiency virus Medical Established Patient with Miguel Holley [facility] 09/23/2020 Diabetes Risk Test Score was three score 09/23/2020 Medical Established Patient with Miguel Holley [facility] 09/23/2020 Morbid obesity Medical Established Patient with Miguel Holley [facility] 09/23/2020 Routine adult history and physical (18-64 yrs) without abnormal findings Medical Established Patient with Miguel Holley [facility] 09/23/2020 Z68.41 - Body mass index [BMI]40.0-44.9, adult Medical Established Patient with Miguel Holley [facility] 09/23/2020 Cough Telemedicine Establi sted Patient with Miguel Holley [facility] 03/19/2020 Exposure to a viral disease Telemedicine Establisted Patient with Miguel Holley [facility] 03/19/2020 Obesity due to excess calories Telemedic ine Establisted Patient with Miguel Holley [facility] 03/19/2020 Z68.37 - Body mass index [BM I] 37.0-37.9, adult Telemedicine Establisted Patient with Miguel Holley [facility] 03/19/2020 Obesity due to excess calories Medical E stablished Patient with Miguel Holley [facility] 03/05/2020 Z68.37 - Body mass index [BM I] 37.0-37.9, adult Medical Established Patient with Miguel Holley [facility] 03/05/2020 Obesity due to excess calories Medical E stablished Patient with Poly Wagonerle [facility] 12/05/2019 R21 - Rash and other nonspecific skin eruption Medical Established Patient with Polykamryn Wagonerle [facility] 12/05/2019 Z68.35 - Body mass index (BM I) 35.0-35.9, adult Medical Established Patient with Poly Salvador [facility] 12/05/2019 Obesity due to excess calories Medical E stablished Patient with Poly Salvador [facility] 11/06/2019 Z68.36 - Body mass index (BM I) 36.0-36.9, adult Medical Established Patient with Poly Salvador [facility] 11/06/2019 Obesity due to excess calories Medical E stablished Patient with Poly Salvador [facility] 10/12/2019 Z68.38 - Body mass index (BM I) 38.0-38.9, adult Medical Established Patient with Poly Salvador [facility] 10/12/2019 L25.5 - Unspecified contact dermatitis due to plants, except food Medical Established Patient with Poly Franco [employer] 09/14/2019 Obesity due to excess calories Medical E stablished Patient with Poly Franco [employer] 09/14/2019 Z68.37 - Body mass index (BM I) 37.0-37.9, adult Medical Established Patient with Poly Franco [employer] 09/14/2019 L25.5 - Unspecified contact dermatitis due to plants, except food Telemedicine with Poly Franco [employer] 09/11/2019 Obesity due to excess calories Telemedic ine with Poly Franco [employer] 09/11/2019 Z68.37 - Body mass index (BM I) 37.0-37.9, adult Telemedicine with Poly Franco [employer] 09/11/2019 Dermatitis due to contact wi th poison spencer Telemedicine with Poly Franco [employer] 09/05/2019 Obesity due to excess calories Telemedic ine with Poly Franco [employer] 09/05/2019 Z68.37 - Body mass index (BM I) 37.0-37.9, adult Telemedicine with Poly Franco [employer] 09/05/2019 Obesity due to excess calories Medical E stablished Patient with Miguel Holley [employer] 08/17/2019 Z68.37 - Body mass index (BM I) 37.0-37.9, adult Medical Established Patient with Miguel Holley [employer] 08/17/2019 Generalized anxiety disorder BH Establis hed Patient with Anh VIDAL 07/06/2019 Anxiety disorder NOS Medical New Patient with Allyson Everett [employer] 07/06/2019 Depression Medical New Patient with Allyson [place] [employer] 07/06/2019 Diabetes Risk Test Score was one score Medical New Patient with Allyson Everett [employer] 07/06/2019 Idiopathic insomnia Medical New Patient with Allyson [place] [employer] 07/06/2019 Obesity due to excess calories Medical N ew Patient with Allyson [place] [employer] 07/06/2019 Z68.39 - Body mass index (BM I) 39.0-39.9 adult Medical New Patient with Allyson [place] [employer] 07/06/2019 [facility] Work Phone: 1(667) 563-672206-08-2020 History general Narrative - Reported Includes: Medical History in patient's chart Description Last Updated Not currently nursing 11/06/2019 Not 11/06/2019 No reported medical history or no signif icant history 07/06/2019 [facility] Work Phone: Evaluation note Includes: Assessments for all patient encounters Findings Encounter Date Assessment of visit for: cristóbal montoya for human immunodeficiency virus Medical Established Patient with Miguel Holley [employer] 09/23/2020 Diabetes Risk Test Score was three score 09/23/2020 Medical Established Patient with Miguel Holley [employer] 09/23/2020 Morbid obesity Medical Established Patient with Miguel Holley CNP 09/23/2020 Routine adult history and ph ysical (18-64 yrs) without abnormal findings Medical Established Patient with Miguel Holley CNP 09/23/2020 Z68.41 - Body mass index [BMI]40.0-44.9, adult Medical Established Patient with Miguel Holley [employer] 09/23/2020 Cough Telemedicine Establi sted Patient with Miguel Holley [facility] 03/19/2020 Exposure to a viral disease Telemedicine Establisted Patient with Miguel Holley [facility] 03/19/2020 Obesity due to excess calories Telemedic ine Establisted Patient with Miguel Holley [facility] 03/19/2020 Z68.37 - Body mass index [BM I] 37.0-37.9, adult Telemedicine Establisted Patient with Miguel Holley [facility] 03/19/2020 Obesity due to excess calories Medical E stablished Patient with Miguel Holley [facility] 03/05/2020 Z68.37 - Body mass index [BM I] 37.0-37.9, adult Medical Established Patient with Miguel Holley [facility] 03/05/2020 Obesity due to excess calories Medical E stablished Patient with Poly Salvador [employer] 12/05/2019 R21 - Rash and other nonspec ific skin eruption Medical Established Patient with Poly Salvador [employer] 12/05/2019 Z68.35 - Body mass index (BM I) 35.0-35.9, adult Medical Established Patient with Poly Salvador [employer] 12/05/2019 Obesity due to excess calories Medical E stablished Patient with Poly Salvador [employer] 11/06/2019 Z68.36 - Body mass index (BM I) 36.0-36.9, adult Medical Established Patient with Poly Salvador [employer] 11/06/2019 Obesity due to excess calories Medical E stablished Patient with Poly Salvador [employer] 10/12/2019 Z68.38 - Body mass index (BM I) 38.0-38.9, adult Medical Established Patient with Poly Franco [employer] 10/12/2019 L25.5 - Unspecified contact dermatitis due to plants, except food Medical Established Patient with Poly Franco [employer] 09/14/2019 Obesity due to excess calories Medical E stablished Patient with Poly Franco [employer] 09/14/2019 Z68.37 - Body mass index (BM I) 37.0-37.9, adult Medical Established Patient with Poly Franco [employer] 09/14/2019 L25.5 - Unspecified contact dermatitis due to plants, except food Telemedicine with Poly Franco [employer] 09/11/2019 Obesity due to excess calories Telemedicine with Poly Franco [facility] 09/11/2019 Z68.37 - Body mass index (BM I) 37.0-37.9, adult Telemedicine with Poly Franco [employer] 09/11/2019 Dermatitis due to contact wi th poison spencer Telemedicine with Poly Franco [facility] 09/05/2019 Obesity due to excess calories Telemedicine with Poly Franco [facility] 09/05/2019 Z68.37 - Body mass index (BM I) 37.0-37.9, adult Telemedicine with Poly Franco [employer] 09/05/2019 Obesity due to excess calories Medical E stablished Patient with Miguel Holley [employer] 08/17/2019 Z68.37 - Body mass index (BM I) 37.0-37.9, adult Medical Established Patient with Miguelcristal Holley [facility] 08/17/2019 Generalized anxiety disorder BH Establis hed Patient with Anh VIDAL 07/06/2019 Anxiety disorder NOS Medical New Patient with Allyson [place] [employer] 07/06/2019 Depression Medical New Patient with Allyson [place] [employer] 07/06/2019 Diabetes Risk Test Score was one score M edical New Patient with Allyson [place] [employer] 07/06/2019 Idiopathic insomnia Medical New Patient with Allyson Everett [employer] 07/06/2019 Obesity due to excess calories Medical N ew Patient with Allyson [place] [employer] 07/06/2019 Z68.39 - Body mass index (BM I) 39.0-39.9 adult Medical New Patient with Allyson Everett [employer] 07/06/2019 [facility] Work Phone: Evaluation note* Diagnosis Nausea vomiting and diarrhea- Primary Nausea with vomiting Generalized abdominal pain Abdominal pain, generalized documented in this encounter [employer] Phone: evaluation note* Diagnosis Women's annual routine gynecological examination documented in this encounter [employer] Phone: evaluation note* Diagnosis Women's annual routine gynecological examination Intrauterine contraceptive device threads lost, initial encounter documented in this encounter [facility] HEAL[facility]uation note* Diagnosis Second trimester state, incidental [...] for weight management [facility] HealthcareEvaluation note* Diagnosis First trimester state, incidental 13 weeks gestation of History of gestational diabetes Personal history of other genital system and obstetric disorders documented in this encounter [facility] HealthcareEvaluation note* Diagnosis Screening, , for anatomic [...] antepartum, gestational diabetes method of control unspecified ([facility]) documented in this encounter [facility]* Diagnosis Third trimester (HHS-HCC) state, incidental documented in this encounter [facility]* Diagnosis Third trimester (HHS-HCC) state, incidental 32 weeks gestation of (HHS-HCC) Gestational diabetes mellitus (GDM), antepartum, gestational diabetes method of control unspecified (HHS-HCC) Hyperglycemia during (HHS-HCC) documented in this encounter [facility]* Diagnosis Third trimester (HHS-HCC) state, incidental 34 weeks gestation of (HHS-HCC) documented in this encounter [facility] HealthcareHistory of Present illness Narrative History of Present Illness not supported for this document type No History of Present Illness [facility] Work Phone: Hospital Discharge instructions* Attachments The following attachments cannot be sent through Care Everywhere. * Abdominal Pain (Bulgarian) * Nausea and Vomiting (Bulgarian) * Diarrhea (Bulgarian) [facility] Instructions Instructions not supported for this document type No Instructions [facility] Work Phone: Patient problem outcome Narrative Includes: Evaluations & Outcomes for active Goals No Outcomes [facility] Work Phone: Reason for referral (narrative)No Reason for Referral [facility] Work Phone: Review of systems Narrative - Reported Review of Systems not supported for this document type No Review of Systems [facility] Work Phone: Summary Purpose Family History No Family History Records Found Description Last Updated Maternal history of rheumatoid arthritis 07/06/2019 Maternal history of rheumatologic disord er Fibromyalgia 07/06/2019 Maternal history of systemic lupus eryth ematosus 07/06/2019 Paternal history of type 1 diabetes marino itus 07/06/2019 Advance Directives No Advanced Directives Records FoundDocuments on File Type Date Recorded Patient Director Of Recruiting Expl anation Advance Directives and Living Will Power of Wildlife Conservation Professor Documents on File Type Date Recorded Patient Director Of Recruiting Expl anation ACP-Advance Directive ACP-Power of Wildlife Conservation Professor Documents on File Type Date Recorded Patient Director Of Recruiting Expl anation Advance Directives and Living Will Power of Wildlife Conservation Professor Date Activated Date Inactivated Comments 01/20/2023 7:21 [...] Depression Medical New Patient with Allyson Floyd ESTHETICIAN MAKEUP ARTIST 07/06/2019 Diabetes Risk Test Score was one score Medical New Patient with Allyson Floyd ESTHETICIAN MAKEUP ARTIST 07/06/2019 Idiopathic insomnia Medical New Patient with Allyson Floyd ESTHETICIAN MAKEUP ARTIST 07/06/2019 Obesity due to excess calories Medical N ew Patient with Allyson Floyd ESTHETICIAN MAKEUP ARTIST 07/06/2019 Z68.39 - Body mass index (BM I) 39.0-39.9 adult Medical New Patient with Allyson Floyd CNP 07/06/2019 Findings Encounter Date Obesity due to excess calories Medical E stablished Patient with Poly Wagonerle [employer]HETICIAN MAKEUP ARTIST 10/12/2019 Z68.38 - Body mass index (BM I) 38.0-38.9, adult Medical Established Patient with Poly Franco [facility] 10/12/2019 L25.5 - Unspecified contact dermatitis due to plants, except food Medical Established Patient with Poly Wagonerle [facility] 09/14/2019 Obesity due to excess calories Medical E stablished Patient with Poly Salvador [facility] 09/14/2019 Z68.37 - Body mass index (BM I) 37.0-37.9, adult Medical Established Patient with Poly Wagonerle [facility] 09/14/2019 L25.5 - Unspecified contact dermatitis due to plants, except food Telemedicine with Poly Wagonerle [employer] 09/11/2019 Obesity due to excess calories Telemedicine with Poly Wagonerle [employer]HE[employer]UP ART[employer] 09/11/2019 Z68.37 - Body mass index (BM I) 37.0-37.9, adult Telemedicine with Poly Wagonerle [facility] 09/11/2019 Dermatitis due to contact wi th poison spencer Telemedicine with Poly Wagonerle [employer] 09/05/2019 Obesity due to excess calories Telemedicine with Poly Franco [employer]HET[employer] MAKE[employer] ART[employer] 09/05/2019 Z68.37 - Body mass index (BM I) 37.0-37.9, adult Telemedicine with Poly Franco [employer] 09/05/2019 Obesity due to excess calories Medical E stablished Patient with Miguelcristal Holley ESTHETICIAN MAKEUP ARTIST 08/17/2019 Z68.37 - Body mass index (BM I) 37.0-37.9, adult Medical Established Patient with Miguelcristal Holley ESTHETICIAN MAKEUP ARTIST 08/17/2019 Generalized anxiety disorder BH Establis hed Patient with Anh Virk FERN GATHERER-S 07/06/2019 Anxiety disorder NOS Medical New Patient with Allyson [place] ESTHETICIAN MAKEUP ARTIST 07/06/2019 Depression Medical New Patient with Allyson [place] ESTHETICIAN MAKEUP ARTIST 07/06/2019 Diabetes Risk Test Score was one score Medical New Patient with Allyson [place] [employer]HETICIAN MAKEUP ARTIST 07/06/2019 Idiopathic insomnia Medical New Patient with Allyson Everett ESTHETICIAN MAKEUP ARTIST 07/06/2019 Obesity due to excess calories Medical N ew Patient with Allyson [place] [employer]HETICIAN MAKEUP ARTIST 07/06/2019 Z68.39 - Body mass index (BM I) 39.0-39.9 adult Medical New Patient with Allyson [place] [employer]HETICIAN MAKEUP ARTIST 07/06/2019 Findings Encounter Date Obesity due to excess calories Medical E stablished Patient with Miguelcristal Holley ESTHETICIAN MAKEUP ARTIST 08/17/2019 Z68.37 - Body mass index (BM I) 37.0-37.9, adult Medical Established Patient with Miguelcristal Anguloen ESTHETICIAN MAKEUP ARTIST 08/17/2019 Generalized anxiety disorder BH Establis hed Patient with Anh Virk FERN GATHERER-S 07/06/2019 Anxiety disorder NOS Medical New Patient with Allyson [place] [employer]HETICIAN MAKEUP ARTIST 07/06/2019 Depression Medical New Patient with Allyson Everett ESTHETICIAN MAKEUP ARTIST 07/06/2019 Diabetes Risk Test Score was one score Medical New Patient with Allyson [place] ESTHETICIAN MAKEUP ARTIST 07/06/2019 Idiopathic insomnia Medical New Patient with Allyson [place] ESTHETICIAN MAKEUP ARTIST 07/06/2019 Obesity due to excess calories Medical N ew Patient with Allyson [place] [employer]HETICIAN MAKEUP ARTIST 07/06/2019 Z68.39 - Body mass index (BM I) 39.0-39.9 adult Medical New Patient with Allyson [place] [employer]HETICIAN MAKEUP ARTIST 07/06/2019 Findings Encounter Date Dermatitis due to contact wi th poison spencer Telemedicine with Poly Franco [employer]HETICIAN MAKEUP ARTIST 09/05/2019 Obesity due to excess calories Telemedicine with Poly Wagonerle [employer]HET[employer]IAN MAKEUP ARTIST 09/05/2019 Z68.37 - Body mass index (BM I) 37.0-37.9, adult Telemedicine with Poly Salvador [employer]HET[employer] ART[employer] 09/05/2019 Obesity due to excess calories Medical E stablished Patient with Miguelcristal Holley ESTHETICIAN MAKEUP ARTIST 08/17/2019 Z68.37 - Body mass index (BM I) 37.0-37.9, adult Medical Established Patient with Miguelcristal Holley ESTHETICIAN MAKEUP ARTIST 08/17/2019 Generalized anxiety disorder BH Establis hed Patient with Anh RODAS-S 07/06/2019 Anxiety disorder NOS Medical New Patient with Allyson [place] ESTHETICIAN MAKEUP ARTIST 07/06/2019 Depression Medical New Patient with Allyson Everett ESTHETICIAN MAKEUP ARTIST 07/06/2019 Diabetes Risk Test Score was one score Medical New Patient with Allyson [place] ESTHETICIAN MAKEUP ARTIST 07/06/2019 Idiopathic insomnia Medical New Patient with Allyson [place] ESTHETICIAN MAKEUP ARTIST 07/06/2019 Obesity due to excess calories Medical N ew Patient with Allyson [place] ESTHETICIAN MAKEUP ARTIST 07/06/2019 Z68.39 - Body mass index (BM I) 39.0-39.9 adult Medical New Patient with Allyson [place] ESTHETICIAN MAKEUP ARTIST 07/06/2019 Findings Encounter Date L25.5 - Unspecified contact dermatitis due to plants, except food Telemedicine with Poly Salvador [facility] 09/11/2019 Obesity due to excess calories Telemedicine with Poly Salvador [facility] 09/11/2019 Z68.37 - Body mass index (BM I) 37.0-37.9, adult Telemedicine with Poly [facility] 09/11/2019 Dermatitis due to contact wi th poison spencer Telemedicine with Poly Salvador [facility] 09/05/2019 Obesity due to excess calories Telemedicine with Poly Salvador [facility] 09/05/2019 Z68.37 - Body mass index (BM I) 37.0-37.9, adult Telemedicine with Poly Salvador [facility] 09/05/2019 Obesity due to excess calories Medical E stablished Patient with Miguel Holley ESTHETICIAN MAKEUP ARTIST 08/17/2019 Z68.37 - Body mass index (BM I) 37.0-37.9, adult Medical Established Patient with Miguelcristal Holley ESTHETICIAN MAKEUP ARTIST 08/17/2019 Generalized anxiety disorder BH Establis hed Patient with Anh RIBEIROW-S 07/06/2019 Anxiety disorder NOS Medical New Patient with Allyson [place] ESTHETICIAN MAKEUP ARTIST 07/06/2019 Depression Medical New Patient with Allyson Everett ESTHETICIAN MAKEUP ARTIST 07/06/2019 Diabetes Risk Test Score was one score Medical New Patient with Allyson Floyd ESTHETICIAN MAKEUP ARTIST 07/06/2019 Idiopathic insomnia Medical New Patient with Allyson Floyd ESTHETICIAN MAKEUP ARTIST 07/06/2019 Obesity due to excess calories Medical N ew Patient with Allyson Floyd ESTHETICIAN MAKEUP ARTIST 07/06/2019 Z68.39 - Body mass index (BM I) 39.0-39.9 adult Medical New Patient with Allyson Floyd ESTHETICIAN MAKEUP ARTIST 07/06/2019 Findings Encounter Date L25.5 - Unspecified contact dermatitis due to plants, except food Medical Established Patient with Poly Franco [employer]HETIC[employer]UP ARTIST 09/14/2019 Obesity due to excess calories Medical E stablished Patient with Poly Franco [facility] 09/14/2019 Z68.37 - Body mass index (BM I) 37.0-37.9, adult Medical Established Patient with Poly Franco [facility] 09/14/2019 L25.5 - Unspecified contact dermatitis due to plants, except food Telemedicine with Poly Franco [facility] 09/11/2019 Obesity due to excess calories [facility]11/2019 Z68.37 - Body mass index (BM I) 37.0-37.9, adult Telemedicine with Poly [facility] 09/11/2019 Dermatitis due to contact wi th poison spencer Telemedicine with Poly Franco [facility] 09/05/2019 Obesity due to excess calories [facility]medicine [facility] 09/05/2019 Z68.37 - Body mass index (BM I) 37.0-37.9, adult Telemedicine with Poly Franco [facility] 09/05/2019 Obesity due to excess calories Medical E stablished Patient with Miguel Holley [facility] 08/17/2019 Z68.37 - Body mass index (BM I) 37.0-37.9, adult Medical Established Patient with Miguel Holley [facility] 08/17/2019 Generalized anxiety disorder BH Establis hed Patient with Anh VIDAL 07/06/2019 Anxiety disorder NOS Medical New Patient with Allyson Floyd ESTHETICIAN MAKEUP ARTIST 07/06/2019 Depression Medical New Patient with Allyson Floyd ESTHETICIAN MAKEUP ARTIST 07/06/2019 Diabetes Risk Test Score was one score Medical New Patient with Allyson Floyd ESTHETICIAN MAKEUP ARTIST 07/06/2019 Idiopathic insomnia Medical New Patient with Allyson Floyd ESTHETICIAN MAKEUP ARTIST 07/06/2019 Obesity due to excess calories Medical N ew Patient with Allyson Floyd ESTHETICIAN MAKEUP ARTIST 07/06/2019 Z68.39 - Body mass index (BM I) 39.0-39.9 adult Medical New Patient with Allyson Floyd ESTHETICIAN MAKEUP ARTIST 07/06/2019 Findings Encounter Date Obesity due to excess calories Medical E stablished Patient with Poly Franco [employer]HETICIAN MAKEUP ARTIST 11/06/2019 Z68.36 - Body mass index (BM I) 36.0-36.9, adult Medical Established Patient with Poly Wagonerle ESTHETICIAN MAKEUP ARTIST 11/06/2019 Obesity due to excess calories Medical E stablished Patient with Poly Wagonerle ESTHETICIAN MAKEUP ARTIST 10/12/2019 Z68.38 - Body mass index (BM I) 38.0-38.9, adult Medical Established Patient with Polykamryn Wagonerle [facility] 10/12/2019 L25.5 - Unspecified contact dermatitis due to plants, except food Medical Established Patient with Poly Wagonerle ESTHET[employer]UP ART[employer] 09/14/2019 Obesity due to excess calories Medical E stablished Patient with Poly Salvador [facility] 09/14/2019 Z68.37 - Body mass index (BM I) 37.0-37.9, adult Medical Established Patient with oPly Franco [facility] 09/14/2019 L25.5 - Unspecified contact dermatitis due to plants, except food Telemedicine with Poly Wagonerle [facility] 09/11/2019 Obesity due to excess calories Telemedicine with Poly Wagonerle [facility] 09/11/2019 Z68.37 - Body mass index (BM I) 37.0-37.9, adult [facility]medicine [facility] 09/11/2019 Dermatitis due to contact wi th poison spencer Telemedicine with Poly Wagonerle [facility] 09/05/2019 Obesity due to excess calories Telemedicine with Poly Salvador [facility] 09/05/2019 Z68.37 - Body mass index (BM I) 37.0-37.9, adult Telemedicine with Poly Wagonerle [facility] 09/05/2019 Obesity due to excess calories Medical E stablished Patient with Miguel Holley [facility] 08/17/2019 Z68.37 - Body mass index (BM I) 37.0-37.9, adult Medical Established Patient with Miguel Holley [facility] 08/17/2019 Generalized anxiety disorder BH Establis hed Patient with Anh VIDAL 07/06/2019 Anxiety disorder NOS Medical New Patient with Allyson Floyd [facility] 07/06/2019 Depression Medical New Patient with Allyson Floyd ESTHETICIAN MAKEUP ARTIST 07/06/2019 Diabetes Risk Test Score was one score Medical New Patient with Allyson Floyd ESTHETICIAN MAKEUP ARTIST 07/06/2019 Idiopathic insomnia Medical New Patient with Allyson Floyd ESTHETICIAN MAKEUP ARTIST 07/06/2019 Obesity due to excess calories Medical N ew Patient with Allyson Floyd ESTHETICIAN MAKEUP ARTIST 07/06/2019 Z68.39 - Body mass index (BM I) 39.0-39.9 adult Medical New Patient with Allyson Floyd ESTHETICIAN MAKEUP ARTIST 07/06/2019 Findings Encounter Date Obesity due to excess calories Medical E stablished Patient with Poly Franco [facility] 12/05/2019 R21 - Rash and other nonspec [facility] skin eruption Medical Established Patient with Poly Wagonerle [employer]HETICIAN [employer]UP ARTIST 12/05/2019 Z68.35 - Body mass index (BM I) 35.0-35.9, adult Medical Established Patient with Poly Wagonerle [employer]HE[employer] ART[employer] 12/05/2019 Obesity due to excess calories Medical E stablished Patient with Poly Wagonerle [facility] 11/06/2019 Z68.36 - Body mass index (BM I) 36.0-36.9, adult Medical Established Patient with Polykamryn Wagonerle [facility] 11/06/2019 Obesity due to excess calories Medical E stablished Patient with Polykamryn Wagonerle [facility] 10/12/2019 Z68.38 - Body mass index (BM I) 38.0-38.9, adult Medical Established Patient with Poly Salvador [facility] 10/12/2019 L25.5 - Unspecified contact dermatitis due to plants, except food Medical Established Patient with Poly Wagonerle [facility] 09/14/2019 Obesity due to excess calories Medical E stablished Patient with Poly Salvador [facility] 09/14/2019 Z68.37 - Body mass index (BM I) 37.0-37.9, adult Medical Established Patient with Poly Salvador [facility] 09/14/2019 L25.5 - Unspecified contact dermatitis due to plants, except food Telemedicine with Poly Wagonerle [facility] 09/11/2019 Obesity due to excess calories Telemedicine with Poly Wagonerle [facility] 09/11/2019 Z68.37 - Body mass index (BM I) 37.0-37.9, adult Telemedicine with Poly Franco [facility] 09/11/2019 Dermatitis due to contact wi th poison spencer Telemedicine with Poly Wagonerle [facility] 09/05/2019 Obesity due to excess calories Telemedicine with Poly Franco [employer] 09/05/2019 Z68.37 - Body mass index (BM I) 37.0-37.9, adult Telemedicine with Poly Franco [employer] 09/05/2019 Obesity due to excess calories Medical E stablished Patient with Miguel Holley [employer]HET[employer] ART[employer] 08/17/2019 Z68.37 - Body mass index (BM I) 37.0-37.9, adult Medical Established Patient with Miguel Holley [employer]HE[employer] 08/17/2019 Generalized anxiety disorder BH Establis hed Patient with Anh VIDAL 07/06/2019 Anxiety disorder NOS Medical New Patient with Allyson Nye ESTHETICIAN MAKEUP ARTIST 07/06/2019 Depression Medical New Patient with Allyson [place] ESTHETICIAN MAKEUP ARTIST 07/06/2019 Diabetes Risk Test Score was one score Medical New Patient with Allyson [place] ESTHETICIAN MAKEUP ARTIST 07/06/2019 Idiopathic insomnia Medical New Patient with Allyson [place] [employer]HETICIAN MAKEUP ARTIST 07/06/2019 Obesity due to excess calories Medical N ew Patient with Allyson Everett ESTHETICIAN MAKEUP ARTIST 07/06/2019 Z68.39 - Body mass index (BM I) 39.0-39.9 adult Medical New Patient with Allyson Nye ESTHETICIAN MAKEUP ARTIST 07/06/2019 Findings Encounter Date Obesity due to excess calories Medical E stablished Patient with Miguel Holley [facility] 03/05/2020 Z68.37 - Body mass index [BM I] 37.0-37.9, adult Medical Established Patient with Miguel Holley [employer] 03/05/2020 Obesity due to excess calories Medical E stablished Patient with Poly Wagonerle ESTHETICIAN MAKEUP ARTIST 12/05/2019 R21 - [facility] Medical Established Patient with Poly Salvador [employer]HETICIAN [employer]UP ARTIST 12/05/2019 Z68.35 - Body mass index (BM I) 35.0-35.9, adult Medical Established Patient with Poly Salvador [employer] 12/05/2019 Obesity due to excess calories Medical E stablished Patient with Poly Salvador [employer] 11/06/2019 Z68.36 - Body mass index (BM I) 36.0-36.9, adult Medical Established Patient with Poly Salvador [employer] 11/06/2019 Obesity due to excess calories Medical E stablished Patient with Poly Salvador [employer] 10/12/2019 Z68.38 - Body mass index (BM I) 38.0-38.9, adult Medical Established Patient with Poly Franco [employer] 10/12/2019 L25.5 - Unspecified contact dermatitis due to plants, except food Medical Established Patient with Poly Franco [employer] 09/14/2019 Obesity due to excess calories Medical E stablished Patient with Poly Wagonerle ESTHETIC[employer]UP ARTIST 09/14/2019 Z68.37 - Body mass index (BM I) 37.0-37.9, adult Medical Established Patient with Poly Franco [employer] 09/14/2019 L25.5 - Unspecified contact dermatitis due to plants, except food Telemedicine with Poly Franco [employer] ART[employer] 09/11/2019 Obesity due to excess calories Telemedicine with Poly Franco [employer] 09/11/2019 Z68.37 - Body mass index (BM I) 37.0-37.9, adult Telemedicine with Poly Franco [employer] 09/11/2019 Dermatitis due to contact wi th poison spencer Telemedicine with Poly Franco [employer] 09/05/2019 Obesity due to excess calories Telemedicine with Poly Franco [facility] 09/05/2019 Z68.37 - Body mass index (BM I) 37.0-37.9, adult Telemedicine with Poly Franco [employer] 09/05/2019 Obesity due to excess calories Medical E stablished Patient with Miguel Holley [employer]HETIC[employer] MAKE[employer] ARTIST 08/17/2019 Z68.37 - Body mass index (BM I) 37.0-37.9, adult Medical Established Patient with Miguel Holley [employer]HET[employer] ART[employer] 08/17/2019 Generalized anxiety disorder BH Establis hed Patient with Anh VIDAL 07/06/2019 Anxiety disorder NOS Medical New Patient with Allyson [place] ESTHETICIAN MAKEUP ARTIST 07/06/2019 Depression Medical New Patient with Allyson [place] ESTHETICIAN MAKEUP ARTIST 07/06/2019 Diabetes Risk Test Score was one score Medical New Patient with Allyson Everett ESTHETICIAN MAKEUP ARTIST 07/06/2019 Idiopathic insomnia Medical New Patient with Allyson [place] ESTHETICIAN MAKEUP ARTIST 07/06/2019 Obesity due to excess calories Medical N ew Patient with Allyson Everett ESTHETICIAN MAKEUP ARTIST 07/06/2019 Z68.39 - Body mass index (BM I) 39.0-39.9 adult Medical New Patient with Allyson [place] ESTHETICIAN MAKEUP ARTIST 07/06/2019 Findings Encounter Date Cough Telemedicine Establi sted Patient with Miguel Holley [employer] 03/19/2020 Exposure to a viral disease Telemedicine Establisted Patient with Miguel Dell ESTHETICIAN MAKEUP ARTIST 03/19/2020 Obesity due to excess calories Telemedic ine Establisted Patient with Miguel Holley [facility] 03/19/2020 Z68.37 - Body mass index [BM I] 37.0-37.9, adult Telemedicine Establisted Patient with Miguel Holley [facility] 03/19/2020 Obesity due to excess calories Medical E stablished Patient with Miguel Holley [facility] 03/05/2020 Z68.37 - Body mass index [BM I] 37.0-37.9, adult Medical Established Patient with Miguel Holley [facility] 03/05/2020 Obesity due to excess calories Medical E stablished Patient with Poly Franco [facility] 12/05/2019 R21 - Rash and other nonspec [facility] skin eruption Medical Established Patient with Poly Wagonerle [facility] 12/05/2019 Z68.35 - Body mass index (BM I) 35.0-35.9, adult Medical Established Patient with Poly Franco [facility] 12/05/2019 Obesity due to excess calories Medical E stablished Patient with Poly Wagonerle [facility] 11/06/2019 Z68.36 - Body mass index (BM I) 36.0-36.9, adult Medical Established Patient with Poly Wagonerle [facility] 11/06/2019 Obesity due to excess calories Medical E stablished Patient with Poly Wagonerle [facility] 10/12/2019 Z68.38 - Body mass index (BM I) 38.0-38.9, adult Medical Established Patient with Poly Wagonerle [facility] 10/12/2019 L25.5 - Unspecified contact dermatitis due to plants, except food Medical Established Patient with Poly Franco [facility] 09/14/2019 Obesity due to excess calories Medical E stablished Patient with Poly Wagonerle [facility] 09/14/2019 Z68.37 - Body mass index (BM I) 37.0-37.9, adult Medical Established Patient with Poly Wagonerle [facility] 09/14/2019 L25.5 - Unspecified contact dermatitis due to plants, except food Telemedicine with Poly Franco [facility] 09/11/2019 Obesity due to excess calories [facility] 09/11/2019 Z68.37 - Body mass index (BM I) 37.0-37.9, adult Telemedicine [facility] Poly [facility] 09/11/2019 Dermatitis due to contact wi th poison spencer Telemedicine with Poly Franco [facility] 09/05/2019 Obesity due to excess calories Telemedicine with Poly Franco [employer] 09/05/2019 Z68.37 - Body mass index (BM I) 37.0-37.9, adult Telemedicine with Poly Franco [employer] 09/05/2019 Obesity due to excess calories Medical E stablished Patient with Miguel Holley [employer] 08/17/2019 Z68.37 - Body mass index (BM I) 37.0-37.9, adult Medical Established Patient with Miguel Holley [employer] 08/17/2019 Generalized anxiety disorder BH Establis hed Patient with Anh VIDAL 07/06/2019 Anxiety disorder NOS Medical New Patient with Allyson Floyd [employer]HETICIAN [employer] ARTIST 07/06/2019 Depression Medical New Patient with Allyson Everett [employer]HE[employer]IAN [employer] ARTIST 07/06/2019 Diabetes Risk Test Score was one score Medical New Patient with Allyson Playa Del Rey ESTHETICIAN MAKEUP ARTIST 07/06/2019 Idiopathic insomnia Medical New Patient with Allyson Everett ESTHETICIAN MAKEUP ARTIST 07/06/2019 Obesity due to excess calories Medical N ew Patient with Allyson Playa Del Rey ESTHETICIAN MAKEUP ARTIST 07/06/2019 Z68.39 - Body mass index (BM I) 39.0-39.9 adult Medical New Patient with Allyson Floyd ESTHETICIAN MAKEUP ARTIST 07/06/2019 Diagnosis COVID-19 Fatty liver Other chronic [...] Everywhere. * Coronavirus Disease (COVID-19): General Info (Bulgarian) documented in this encounter Additional Source Comments INFORMATION SOURCE (unrecogn ized section and content) DATE CREATED AUTHOR 11/24/2017 [facility] DATE CREATED AUTHOR AUTHOR'S ORGANIZ ATION 08/26/2018 [facility] DATE CREATED AUTHOR AUTHOR'S ORGANIZ ATION 09/24/2020 [facility] DATE CREATED AUTHOR AUTHOR'S ORGANIZ ATION 10/30/2024 [facility] DATE CREATED AUTHOR AUTHOR'S ORGANIZ ATION 01/24/2025 [facility] Special[facility] EPIC Evaluations & [...] US TRANSVAGINAL, NON OB Dana Akins MD [address] [place] [address] [facility] Ultrasound [address] [place] [address] Reason Comments Emesis multiple episodes si nce [...] 0005 (New Bag - Prov ider: Erica Jose, RN)0111 (Stopped - Provider: Erica Garcia RN) hydrocodone-acetaminophen (NORCO) tablet 5-325 mg (STARTER PACK) This order is for a take home starter pack of medication. Please document Not Given with a reason of other on the MAR along with a comment of sent home with patient. 0329 (Not Given - Pr ovider: Maricrzu Leonardo RN - Reason: Other - Comment: [...] On Wed10/15/20 at 0330, For 1 dose 032 (Not Given - Pr ovider: Maricruz Leonardo [...] Care Teams (unrecognized sec tion and content) Mink Rancher Relationship Specialty Start Date End Date Miguel Holley APRN [facility] PCP - General Family Medicine 04/08/20 Mink Rancher Relationship Specialty Start Date End Date Miguel Holley APRN ESTHETICIAN MAKEUP ARTIST PCP - General Family Medicine 04/08/20 Mink Rancher Relationship Specialty Start Date End Date Miguel Holley APRN ESTHETICIAN MAKEUP ARTIST PCP - General Family Medicine 04/08/20 Mink Rancher Relationship Specialty Start Date End Date Miguel Holley APRN ESTHETICIAN MAKEUP ARTIST PCP - General Family Medicine 04/08/20 FOR [...] BE BASED ON THE PRIMARY CLINICAL RECORDS. [facility]. provides no warranty or guarantee of the accuracy or completeness of information in this document.
--- NOTE | 2025-01-26 09:12 | US_ITS ---
The [place] [id number] Patient Name: TARA FLOREZ MRN: TBH:[id number] date: 1995 Sex: F Assigned Patient Location: Current Patient Location: Accession/Order Number: [id number] Exam Date: 01/26/2025 09:08 Report Date: 01/26/2025 11:00 At the request of: BRUCE CARD DO Procedure: US OB BPP w non-stress CLINICAL DATA: Hyperglycemia ULTRASOUND OB GROWTH COMPARISON: None There is a single live intrauterine gestation in cephalic presentation. There is cardiac and somatic activity with heart rate of 147 bpm. The amniotic fluid index measures 12.1 cm which is in normal range. The placenta is anterior. The following measurements were obtained: Biparietal diameter 8.6 cm 34 weeks 4 days 52% Head circumference 32.2 cm 36 weeks 2 days 64% Abdominal circumference 31.6 cm 35 weeks 3 days 82% Femur length 6.8 cm 35 weeks 1 day 59% The composite ultrasound age based on these measurements is 35 weeks 3 days +/- 2 weeks 3 days. The estimated date of delivery is 02/27/2025. The estimated date of delivery based on last menstrual period is 03/06/2025. The estimated weight is 5 lbs. 14 oz. +/- 14 ounces (73%) US/US OB growth IMPRESSION: SINGLE LIVE INTRAUTERINE GESTATION WITH ULTRASOUND AGE OF 35 WEEKS 3 DAYS. BIOPHYSICAL PROFILE: COMPARISON: 01/19/2025 FINDINGS: TONE: 1 or more episodes of activity extension and flexion of extremity or opening and closing of the hand [Y] 2/2 GROSS BODY MOVEMENTS: 3 or more discrete body or limb movements [Y] 2/2 BREATHING MOVEMENTS: 1 or more episodes of breathing lasting at least 30 seconds [Y] 2/2 DEE: A single deepest vertical pocket of amniotic fluid greater than 2 cm [Y] 2/2 DEE: 12.1 cm Total score: 01/05 IMPRESSION: NORMAL BIOPHYSICAL PROFILE. Impression dictated by: Lindsey Bright M.D. 01/26/2025 11:00 AM Dictation Location: [place] [address] Electronically authenticated by: [id number] Y Date: 01/26/2025 11:00
[2025-01-26 09:33] VITALS: BP 129/66; PULSE 108
== END 2025-01-26 10:02 | disposition home or self-care (01) ==
LOC: US 09:00 → FBC 09:01
PROVIDERS: Visit Provider Obstetrics & Gynecology
DX: O99.810 Abnormal glucose complicating pregnancy (principal); Z3A.35 35 weeks gestation of pregnancy
CPT/HCPCS: 76816; 76818

== ENCOUNTER 2025-02-02 09:04 | Outpatient (OUT) | payer MEDICAID, SELFPAY ==
--- OUTSIDE RECORDS SUMMARY | 2025-01-23 09:50 | XMS_ITS | Encounter Summary ---
Author Organization [facility] Address [address] [place] [address] Care Team Providers Care Cable Armorer Name Role Phone Unavailable Primary Care Provider Unavailabl e Reason for Visit * Reason Comments Routine Visit Encounter Details Date Type Department Care Team (Late st Contact Info) Description 01/23/2025 9:50 AM EDT Routine [facility] [address] [place] [address] Latasha Padgett PA [address] [place], [facility] Third trimester ([facility]); 34 weeks gestation of ([facility]) Social History Tobacco Use Types Packs/Day Years [...] Reading Time Taken Comments Blood Pressure 122/74 01/23/2025 9:44 AM EDT Pulse - - Temperature - - Respiratory Rate - - Oxygen Saturation - - Inhaled Oxygen Concentration - - Weight 126 kg (276 lb 12.8 oz) 01/23/2025 9:44 A M EDT Height - - Body Mass Index 43.35 01/10/2024 8:56 AM EDT documented in this encounter Progress Notes * CAYLA Kwok - 01/23/2025 9:50 AM EDT Reason for Appointment: Patient ID: Estefania Cedeño is a 29 y.o. female who presents for Routine Visit Patient presents today for Return OB appointment. MEDICATIONS Current Outpatient Medications Medication Instructions aspirin 81 mg, Daily Continuous Glucose Sensor (Dexcom G6 Sensor) misc 1 each, Does not apply, Every 10 days Continuous Glucose Transmitter (Dexcom G6 transmitter) misc Use as instructed metFORMIN XR (GLUCOPHAGE-XR) 500 mg, Oral, Daily with evening meal, Do not crush, chew, or split. Vit-Fe Fumarate-FA (PNV Plus Multivitamin) 27-1 MG tablet 1 tablet, Oral, Daily ALLERGIES Allergies Allergen Reactions Triamcinolone Other and Hives Had to have reconstructive surgery. Dimpling of the skin Other NUTS PROBLEMS Active Ambulatory Problems Diagnosis Date Noted No Active Ambulatory Problems Resolved Ambulatory Problems Diagnosis Date Noted Excessive growth affecting management of mother, antepartum ([facility]) 12/06/2023 Third trimester ([facility]) 12/06/2023 No Additional Past Medical History HISTORY [...] reviewed. Vitals: Estimated body mass index is 43.35 kg/m?? as calculated from the following: Height as of 24: 5' 7 . Weight as of this encounter: 276 lb 12.8 oz. BP: 122/74 No LMP recorded. Patient is . ASSESSMENT & PLAN ICD-10-CM 1. Third trimester ([facility]) Z34.93 CANCELED: POCT urinalysis dipstick manually resulted 2. 34 weeks gestation of ([facility]) Z3A.34 CANCELED: POCT urinalysis dipstick manually resulted Return OB: Patient presents today for a routine obstetrics appointment. Patient is currently 34w0d . Patient states she is doing well but has complaints of being tired due to current . Patient has verbalizes frequent movement. labor precautions was discussed/given and patient was instructed to perform kick counts three times a day. No orders of the defined types were placed in this encounter. Follow Up: Patient is to return to office in 2 week for routine OB appointment. Documented by CAYLA Kwok on behalf of: CAYLA Kwok documented in this encounter Plan of Treatment Upcoming Encounters Date Type Department Care Team (Late st Contact Info) Description 02/06/2025 10:10 AM EDT Routine [facility] [address] [place] [address] Aditya Cervantes DO [address] [place] [address] documented as of this encounter Visit Diagnoses Diagnosis Third trimester ([facility]) state, incidental 34 weeks gestation of ([facility]) documented in this encounter
--- OUTSIDE RECORDS SUMMARY | 2025-02-02 09:06 | XMS_ITS | Encounter Summary ---
Author Organization [facility] Address [address] [place] [address] Care Team Providers Care Glass Blowing Lathe Operator Name Role Phone Unavailable Primary Care Provider Unavailabl e Encounter Details Date Type Department Care Team (Late st Contact Info) Description 01/26/2025 Clinisync Result Encounter [facility] External Department Unsolicited Bruce Cervantes DO [address] [place] [address] Social History Tobacco Use Types Packs/Day Years [...] EDT Routine NOMJean Carlos [place] O[facility] [address] [place] [phone] Bruce Cervantes DO [address] [place] [address] [place] [address] documented as of this encounter Procedures Procedure Name Priority Date/Time Associated Diagnosis Comments US OB GROWTH 01/26/2025 11:00 AM EDT documented in this encounter Results * US OB GROWTH (01/26/2025 11:00 AM EDT) Anatomical Region Laterality Modality Other 01/26/2025 11:0 0 AM EDT Narrative 01/26/2025 11:03 [place] [address] Ultrasound Report Signed Patient: ESTEFANIA CEDEÑO MR#: [id number] : 1995 Acct:[id number] Age/Sex: 29 / F ADM Date: 01/26/25 Loc: US Attending Dr: Bruce Cervantes D.O. Ordering Physician: Bruce Cervantes D.O. Date of Service: 01/26/25 Procedure(s): US OB growth Accession Number(s): [id number] cc: Bruce Cervantes D.O.; Physician,Non-Staff [place] [id number] Patient Name: ESTEFANIA CEDEÑO MRN: [id number] date: 1995 Sex: F Assigned Patient Location: US Current Patient Location: Accession/Order Number: [id number] Exam Date: 01/26/2025 09:08 Report Date: 01/26/2025 11:00 At the request of: BRUCE CERVANTES DO Procedure: US OB BPP w non-stress CLINICAL DATA: Hyperglycemia ULTRASOUND OB GROWTH COMPARISON: None There is a single live intrauterine gestation in cephalic presentation. There is cardiac and somatic activity with heart rate of 147 bpm. The amniotic fluid index measures 12.1 cm which is in normal range. The placenta is anterior. The following measurements were obtained: Biparietal diameter 8.6 cm 34 weeks 4 days 52% Head circumference 32.2 cm 36 weeks 2 days 64% Abdominal circumference 31.6 cm 35 weeks 3 days 82% Femur length 6.8 cm 35 weeks 1 day 59% The composite ultrasound age based on these measurements is 35 weeks 3 days +/- 2 weeks 3 days. The estimated date of delivery is 02/27/2025. The estimated date of delivery based on last menstrual period is 03/06/2025. The estimated weight is 5 lbs. 14 oz. +/- 14 ounces (73%) US/US OB growth IMPRESSION: SINGLE LIVE INTRAUTERINE GESTATION WITH ULTRASOUND AGE OF 35 WEEKS 3 DAYS. BIOPHYSICAL PROFILE: COMPARISON: 01/19/2025 FINDINGS: TONE: 1 or more episodes of activity extension and flexion of extremity or opening and closing of the hand [Y] 2/2 GROSS BODY MOVEMENTS: 3 or more discrete body or limb movements [Y] 2/2 BREATHING MOVEMENTS: 1 or more episodes of breathing lasting at least 30 seconds [Y] 2/2 DEE: A single deepest vertical pocket of amniotic fluid greater than 2 cm [Y] 2/2 DEE: 12.1 cm Total score: 01/05 IMPRESSION: NORMAL BIOPHYSICAL PROFILE. Impression dictated by: Lindsey Bright M.D. 01/26/2025 11:00 AM Dictation Location[facility] Electronically authenticated by: [id number] Y Date: 01/26/2025 11:00 Dictated By: Lindsey Bright M.D. Signed By: 01/26/25 1103 DD/ 1100 TD/TT: Interactive Web Developer: Procedure Note Radiology, Radiologist, MD - 01/26/2025 [place] [address] Ultrasound Report Signed Patient: ESTEFANIA CEDEÑO R#: [id number] : 1995Acct:[id number] Age/Sex: 29 FADM Date: 01/26/25 Loc: US Attending Dr: Bruce Cervantes D.O. Ordering Physician: Bruce Cervantes D.O. Date of Service: 01/26/25 Procedure(s): US OB growth Accession Number(s): [id number] cc: Bruce Cervantes D.O.; Physician,Non-Staff Roberto The [place] [id number] Patient Name: ESTEFANIA CEDEÑO MRN: [facility]:[id number] date: 1995 Sex: F Assigned Patient Location: US Current Patient Location: Accession/Order Number: [id number] Exam Date: 01/26/2025 09:08 Report Date: 01/26/2025 11:00 At the request of: BRUCE CERVANTES DO Procedure: US OB BPP w non-stress CLINICAL DATA: Hyperglycemia ULTRASOUND OB GROWTH COMPARISON: None There is a single live intrauterine gestation in cephalic presentation.There is cardiac and somatic activity with heart rate of 147 bpm. The amniotic fluid index measures 12.1 cm which is in normal range. Theplacenta is anterior. The following measurements were obtained: Biparietal diameter 8.6 cm 34 weeks 4 days 52% Head circumference 32.2 cm 36 weeks 2 days 64% Abdominal circumference 31.6 cm 35 weeks 3 days 82% Femur length 6.8 cm 35 weeks 1 day 59% The composite ultrasound age based on these measurements is 35 weeks 3days +/- 2 weeks 3 days. The estimated date of delivery is 02/27/2025. The estimated date of delivery based on last menstrual period is 03/06/2025.The estimated weight is 5 lbs. 14 oz. +/- 14 ounces (73%) US/US OB growth IMPRESSION: SINGLE LIVE INTRAUTERINE GESTATION WITH ULTRASOUND AGE OF 35 WEEKS 3 DAYS. BIOPHYSICAL PROFILE: COMPARISON: 01/19/2025 FINDINGS: TONE: 1 or more episodes of activity extension and flexion of extremity or opening and closing of the hand [Y] 2/2 GROSS BODY MOVEMENTS: 3 or more discrete body or limb movements [Y] 2/2 BREATHING MOVEMENTS: 1 or more episodes of breathing lastingat least 30 seconds [Y] 2/2 DEE: A single deepest vertical pocket of amniotic fluid greater than 2 cm [Y] 2/2 DEE: 12.1 cm Total score: 8/8 IMPRESSION: NORMAL BIOPHYSICAL PROFILE. Impression dictated by: Lindsey Bright M.D. 01/26/2025 11:00 AM Dictation Location: [facility] Electronically authenticated by: [id number] Y Date: 1:00 Dictated By: Lindsey Bright M.D. Signed By:01/26/25 1103 DD/ 1100 TD/TT: Interactive Web Developer: us Bruce Billy DO [facility] Final Result documented in this encounter Visit Diagnoses Not on filedocumented in this encounter
--- OUTSIDE RECORDS SUMMARY | 2025-02-02 09:06 | XMS_ITS | Encounter Summary ---
Author Organization [facility] Address [address] [place] [address] Care Team Providers Care Explosive Operator Supervisor Name Role Phone Unavailable Primary Care Provider Unavailabl e Encounter Details Date Type Department Care Team (Late st Contact Info) Description 01/09/2025 Abstract DENISE CESAR [facility] [place] [phone] Aditya Cervantes, DO [address], [facility]11 Social History Tobacco Use Types Packs/Day Years [...] 02/06/2025 10:10 AM EDT Routine DENISE CESAR [facility] [place] [phone] Aditya Cervantes, DO [address], [facility] documented as of this encounter Visit Diagnoses Not on filedocumented in this encounter
--- OUTSIDE RECORDS SUMMARY | 2025-02-02 09:06 | XMS_ITS | Encounter Summary ---
Author Organization [facility] Address [address] [place] [address] Care Team Providers Care Guest Services Ambassador Name Role Phone Unavailable Primary Care Provider Unavailabl e Encounter Details Date Type Department Care Team (Late st Contact Info) Description 10/04/2023 Clinisync Result Encounter [facility] External Department Unsolicited Bruce Cervantes, DO [address] [place] [address] Social History Tobacco Use Types Packs/Day Years [...] EDT Routine NOMJean Carlos [place] O[facility] [address] [facility] [place] [phone] Bruce Cervantes DO [address] [place] [address] documented as of this encounter Procedures Procedure Name Priority Date/Time Associated Diagnosis Comments US RIGHT UPPER QUADRANT 10/04/2023 2:02 PM EDT [facility] LIPASE Routine 10/04/2023 1:40 PM EDT [facility] CMP (CMP) (FOR REMOTE [facility]ITICAL ACC[facility]OS[facility]ITAL USE) Routine 10/04/2023 1:40 PM EDT ALL AMYLASE Routine 10/04/2023 1:40 PM EDT OVA + PARASITE EXAM Routine 10/04/2023 1 :00 PM EDT documented in this encounter Results * US RIGHT UPPER QUADRANT (10/04/2023 2:02 PM EDT) Anatomical Region Laterality Modality Other 10/04/2023 2:02 PM EDT Narrative 10/04/2023 2:05 [place] [address] Ultrasound Report Signed Patient: ESTEFANIA CEDEÑO MR#: [id number] : 1995 Acct:[id number] Age/Sex: 28 / F ADM Date: Loc: [facility] [address]: Bruce Cervantes D.O. Ordering Physician: Bruce Cervantes D.O. Date of Service: 10/04/23 Procedure(s): US right upper quadrant Accession Number(s): [id number] cc: Bruce Cervantes D.O.; Physician,Non-Staff MSirena [place] [id number] Patient Name: ESTEFANIA CEDEÑO MRN: [id number] date: 1995 Sex: F Assigned Patient Location: [facility] Current Patient Location: [facility] Accession/Order Number: [id number] Exam Date: 10/04/2023 13:10 Report Date: 10/04/2023 [...] Signed By: 10/04/23 1405 DD/ 140 TD/TT: Spray Technician: Procedure Note Radiology, Radiologist, - 10/04/2023 [place] [address] Ultrasound Report Signed Patient: TRINITY CEDEÑO#: [id number] : 1995Acct:[id number] Age/Sex: 28 FADM Date: Loc: [facility] 257-[address]: Bruce Cervantes D.O. Ordering Physician: Bruce Cervantes D.O. Date of Service: 10/04/23 Procedure(s): US right upper quadrant Accession Number(s): [id number] cc: Bruce Cervantes D.O.; Physician,Non-Staff Roberto [place] [address] Patient Name: ESTEFANIA CEDEÑO MRN: [facility]:[id number] date: 1995 Sex: F Assigned Patient Location: [facility] Current Patient Location: [facility] Accession/Order Number: [id number] Exam Date: 10/04/2023 13:10 Report Date: 10/04/2023 [...] M.D. Signed By:10/04/23 1405 DD/ 1402 TD/TT: Spray Technician: us Bruce Billy DO [facility] Final Result * [facility] LIPASE (10/04/2023 1:40 PM EDT) LIPASE 30.0 16.0 - 77.0 U/L TB 10/04/2023 1:40 PM EDT 10/04/2023 1:45 PM EDT Narrative [facility] - 10/04/2023 2:26 PM EDT Bruce Billy DO [facility] Final Result [facility] TB * (ABNORMAL) [facility] CMP (CMP) (FOR REMOTE [facility]ITICAL ACCESS [facility]OSPITAL USE) (10/04/2023 1:40 PM EDT) SODIUM 137 136 - 145 mmol/L [facility] POTASSIUM 3.5 3.5 - 5.1 mmol/L [facility] CHLORIDE 106 98 - 107 mmol/L [facility] CARBON DIOXIDE 20.4(L) 21.0 - 32.0 mmol/L [facility] ANION GAP 14.1 [facility] GLUCOSE 72(L) 74 - 106 mg/dL [facility] BLOOD UREA NITROGEN 6.0(L) 7.0 - 18.0 mg/dL [facility] CREATININE 0.39(L) 0.55 - 1.02 mg/dL [facility] EGFR-AF NAMIBIAN >60 >=60 [facility] EGFR-NON AF NAMIBIAN >60 >=60 [facility] BUN CREATININE RATIO 15.4 [...] DO [facility] Final Result Performing Organization Address [facility] Phone Number [facility] * ALL AMYLASE (10/04/2023 1:40 PM EDT) AMYLASE 58 25 - 115 U/L TB 10/04/2023 1:40 PM EDT 10/04/2023 1:45 PM EDT Narrative [facility] - 10/04/2023 2:14 PM EDT Bruce Billy DO [facility] Final Result Performing Organization Address [facility] Number [facility] * OVA + PARASITE EXAM (10/04/2023 1:00 PM EDT) OVA + PARASITE EXAM Final report . [facility] Comment: These results were obtained using wet preparation(s) and trichrome stained smear. This test does not include testing for Cryptosporidium parvum, Cyclospora, or Microsporidia. RESULT 1 Comment . [facility] Comment: No ova, cysts, or parasites seen. One negative specimen does not rule out the possibility of a parasitic infection. Performed at: [address] [id number] Quarter Doper: Rubén Ellison PhD, Phone: [phone] 10/04/2023 1:00 PM EDT 10/04/2023 1:52 PM EDT Narrative [facility] - 10/06/2023 9:09 PM EDT Bruce Billy DO LAB BLOOD ORDERABLES Final Resul t Performing Organization Address [facility] Phone Number [facility] documented in this encounter Visit Diagnoses Not on filedocumented in this encounter
--- OUTSIDE RECORDS SUMMARY | 2025-02-02 09:06 | XMS_ITS | Encounter Summary ---
Author Organization [facility] Address [address] [place] [address] Care Team Providers Care Hearing Aid Mechanic Name Role Phone Unavailable Primary Care Provider Unavailabl e Encounter Details Date Type Department Care Team (Late st Contact Info) Description 11/28/2024 Abstract DENISE CESAR [facility] [place] [phone] Aditya Cervnates, DO [address], [facility]11 Social History Tobacco Use Types Packs/Day [...] 02/06/2025 10:10 AM EDT Routine DENISE CESAR [facility] [place] [phone] Aditya Cervantes, DO [address], [facility]11 documented as of this encounter Visit Diagnoses Not on filedocumented in this encounter
--- OUTSIDE RECORDS SUMMARY | 2025-02-02 09:06 | XMS_ITS | Encounter Summary ---
Author Organization [facility] Address [address] [place] [address] Care Team Providers Care Manager Helpdesk Name Role Phone Unavailable Primary Care Provider Unavailabl e Encounter Details Date Type Department Care Team (Late st Contact Info) Description 09/19/2024 Abstract DENISE CESAR [facility] [place] [phone] Aditya Cervantes, DO [address], [facility]11 Social History Tobacco [...] Description 02/06/2025 10:10 AM EDT Routine DENISE ECSAR [facility] [place] [phone] Aditya Cervantes, DO [address], [facility]11 documented as of this encounter Visit Diagnoses Not on filedocumented in this encounter
--- OUTSIDE RECORDS SUMMARY | 2025-02-02 09:06 | XMS_ITS | Encounter Summary ---
Author Organization [facility] Address [address] [place] [address] Care Team Providers Care Transfer And Line Up Worker Name Role Phone Unavailable Primary Care Provider Unavailabl e Encounter Details Date Type Department Care Team (Late st Contact Info) Description 12/14/2023 Abstract NOMJean Carlos CESAR [address] [place] [phone] Trini Aquino LPN [address] [facility] [place] [facility]11 Social History Tobacco Use Types [...] 10:10 AM EDT Routine DENISE CESAR [address] [facility] [place] [phone] Aditya Cervantes DO [address] [facility] [address] [place] [id number] documented as of this encounter Visit Diagnoses Not on filedocumented in this encounter
--- OUTSIDE RECORDS SUMMARY | 2025-02-02 09:06 | XMS_ITS | Encounter Summary ---
Author Organization [facility] Address [address] [place] [address] Care Team Providers Care Automation Qa Lead Name Role Phone Unavailable Primary Care Provider Unavailabl e Encounter Details Date Type Department Care Team (Late st Contact Info) Description 08/19/2023 Clinisync Result Encounter [facility] External Department Unsolicited Bruce Cervantes, DO [address] [place] [address] Social History Tobacco Use Types Packs/Day Years [...] [address] [facility] [place] [phone] Bruce Cervantes DO [address] [place] [address] documented as of this encounter Procedures Procedure Name Priority Date/Time Associated Diagnosis Comments US OB ANATOMY 08/19/2023 11:33 AM EDT documented in this encounter Results * US OB ANATOMY (08/19/2023 11:33 AM EDT) Anatomical Region Laterality Modality Other 08/19/2023 11:3 3 AM EDT Narrative 08/19/2023 11:36 AM EDT [place] [id number] Ultrasound Report Signed Patient: ESTEFANIA CEDEÑO MR#: [id number] : 1995 Acct:[id number] Age/Sex: 28 / F ADM Date: 08/19/23 Loc: [facility] Attending Dr: Bruce Cervantes D.O. Ordering Physician: Bruce Cervantes D.O. Date of Service: 08/19/23 Procedure(s): US OB anatomy Accession Number(s): [id number] cc: Bruce Cervantes D.O.; Physician,Non-Staff Roberto [address] [address] Patient Name: ESTEFANIA CEDEÑO MRN: [id number] date: 1995 Sex: F Assigned Patient Location: [facility] Current Patient Location: [facility] Accession/Order Number: [id number] Exam Date: 08/19/2023 10:08 Report Date: 08/19/2023 [...] Signed By: 08/19/23 1136 DD/ 1133 TD/TT: Cad Cam Programmer: Procedure Note Radiology, Radiologist, MD - 08/19/2023 [place] [address] Ultrasound Report Signed Patient: TRINITY CEDEÑO#: [id number] : 1995Acct:[id number] Age/Sex: / FADM Date: 08/19/23 Loc: [facility] Attending Dr: Bruce Cervantes D.O. Ordering Physician: Bruce Cervantes D.O. Date of Service: 08/19/23 Procedure(s): US OB anatomy Accession Number(s): [id number] cc: Bruce Cervantes D.O.; Physician,Non-Staff MSirena [place] [id number] Patient Name: ESTEFANIA CEDEÑO MRN: [id number] date: 1995 Sex: F Assigned Patient Location: [facility] Current Patient Location: [facility] Accession/Order Number: [id number] Exam Date: 08/19/2023 10:08 Report Date: 08/19/2023 [...] M.D. Signed By:08/19/23 1136 DD/ 1133 TD/TT: Cad Cam Programmer: us Bruce Billy DO [facility] Final Result documented in this encounter Visit Diagnoses Not on filedocumented in this encounter
--- OUTSIDE RECORDS SUMMARY | 2025-02-02 09:06 | XMS_ITS | Encounter Summary ---
Author Organization [facility] Address [address] [place] [address] Care Team Providers Care Automation Clerk Name Role Phone Unavailable Primary Care Provider Unavailabl e Encounter Details Date Type Department Care Team (Late st Contact Info) Description 01/11/2024 Abstract DENISE CESAR [address] [facility] [place] [phone] Aditya Cervantes, DO [address], [facility]11 Social History [...] 10:10 AM EDT Routine DENISE CESAR [address] [facility] [place] [place] [phone] Aditya Cervantes, DO [address], [place] [phone] documented as of this encounter Visit Diagnoses Not on filedocumented in this encounter
--- OUTSIDE RECORDS SUMMARY | 2025-02-02 09:06 | XMS_ITS | Encounter Summary ---
Author Organization [facility] Address [address] [place] [address] Care Team Providers Care Insurance Consultant Name Role Phone Unavailable Primary Care Provider Unavailabl e Encounter Details Date Type Department Care Team (Late st Contact Info) Description 08/19/2023 Clinisync Result Encounter [facility] External Department Unsolicited Bruce Cervantes, DO [address] [place] [address] Social History Tobacco Use Types Packs/Day Years [...] EDT Routine [facility] [place] [facility] [address] [facility] [place] [address] Bruce Cervantes DO [address] [place] [address] documented as of this encounter Procedures Procedure Name Priority Date/Time Associated Diagnosis Comments US OB CERVICAL LENGTH 08/19/2023 11:33 AM EDT documented in this encounter Results * US OB CERVICAL LENGTH (08/19/2023 11:33 AM EDT) Anatomical Region Laterality Modality Other 08/19/2023 11:3 3 AM EDT Narrative 08/19/2023 11:35 [place] [address] Ultrasound Report Signed Patient: ESTEFANIA CEDEÑO MR#: [id number] : 1995 Acct:[id number] Age/Sex: 28 / F ADM Date: 08/19/23 Loc: [facility] Attending Dr: Bruce Cervantes D.O. Ordering Physician: Bruce Cervantes D.O. Date of Service: 08/19/23 Procedure(s): US OB cervical length Accession Number(s): [id number] cc: Bruce Cervantes D.O.; Physician,Non-Staff Roberto [place] [id number] Patient Name: ESTEFANIA CEDEÑO MRN: [id number] date: 1995 Sex: F Assigned Patient Location: [facility] Current Patient Location: [facility] Accession/Order Number: [id number] Exam Date: 08/19/2023 10:08 Report Date: 08/19/2023 [...] Signed By: 08/19/23 1135 DD/ 1133 TD/TT: Housesmith: Procedure Note Radiology, Radiologist, MD - 08/19/2023 [place] [address] Ultrasound Report Signed Patient: TRINITY CEDEÑO#: [id number] : 1995Acct:[id number] Age/Sex: Date: 08/19/23 Loc: [facility] Attending Dr: Bruce Cervantes D.O. Ordering Physician: Bruce Cervantes D.O. Date of Service: 08/19/23 Procedure(s): US OB cervical length Accession Number(s): [id number] cc: Bruce Cervantes D.O.; Physician,Non-Staff Roberto The [place] [address] Patient Name: ESTEFANIA CEDEÑO MRN: [id number] date: 1995 Sex: F Assigned Patient Location: [facility] Current Patient Location: [facility] Accession/Order Number: [id number] Exam Date: 08/19/2023 10:08 Report Date: 08/19/2023 [...] M.D. Signed By:08/19/23 1135 DD/ 1133 TD/TT: Housesmith: us Bruce Billy DO [facility] Final Result documented in this encounter Visit Diagnoses Not on filedocumented in this encounter
--- OUTSIDE RECORDS SUMMARY | 2025-02-02 09:06 | XMS_ITS | Encounter Summary ---
Author Organization [facility] Address [address] [place] [address] Care Team Providers Care Teacher Hearing Impaired Name Role Phone Unavailable Primary Care Provider Unavailabl e Encounter Details Date Type Department Care Team (Late st Contact Info) Description 06/23/2023 Clinisync Result Encounter [facility] External Department Unsolicited Bruce Cervantes, DO [address] [place] [address] Social History Tobacco Use Types Packs/Day Years [...] AM EDT Routine [facility] [address] [place] [address] Bruce Cervantes DO [address] [place] [address] documented as of this encounter Procedures Procedure Name Priority Date/Time Associated Diagnosis Comments US OB TRANSVAGINAL 06/23/2023 10 :07 AM EST documented in this encounter Results * US OB TRANSVAGINAL (06/23/2023 10:07 AM EST) Anatomical Region Laterality Modality Other 06/23/2023 10:0 7 AM EST Narrative 06/23/2023 10:09 [place] [address] Ultrasound Report Signed Patient: ESTEFANIA CEDEÑO MR#: [id number] : 1995 Acct:[id number] Age/Sex: 28 / F ADM Date: 06/23/23 Loc: [facility] Attending Dr: Bruce Cervantes D.O. Ordering Physician: Bruce Cervantes D.O. Date of Service: 06/23/23 Procedure(s): US OB transvaginal Accession Number(s): [id number] cc: Bruce Cervantes D.O.; Physician,Non-Staff Roberto The [place] [id number] Patient Name: ESTEFANIA CEDEÑO MRN: [id number] date: 1995 Sex: F Assigned Patient Location: [facility] Current Patient Location: [facility] Accession/Order Number: [id number] Exam Date: 06/23/2023 09:30 Report Date: 06/23/2023 [...] Signed By: 06/23/23 1009 DD/ 1007 TD/TT: Armored Machine Operator: Procedure Note Radiology, Radiologist, - 08/04/[address] [address] Ultrasound Report Signed Patient: BETTY CEDEÑOR#: [id number] : 1995Acct:[id number] Age/Sex: 28 / FADM Date: 06/23/23 Loc: [facility] Attending Dr: Bruce Cervantes D.O. Ordering Physician: Bruce Cervantes D.O. Date of Service: 06/23/23 Procedure(s): US OB transvaginal Accession Number(s): [id number] cc: Bruce Cervantes D.O.; Physician,Non-Staff Roberto The [place] [id number] Patient Name: ESTEFANIA CEDEÑO MRN: [id number] date: 1995 Sex: F Assigned Patient Location: [facility] Current Patient Location: [facility] Accession/Order Number: [id number] Exam Date: 06/23/2023 09:30 Report Date: 06/23/2023 [...] M.D. Signed By:06/23/23 1009 DD/ 1007 TD/TT: Armored Machine Operator: us Bruce Cervantes DO [facility] Final Result documented in this encounter Visit Diagnoses Not on filedocumented in this encounter
--- OUTSIDE RECORDS SUMMARY | 2025-02-02 09:06 | XMS_ITS | Encounter Summary ---
Author Organization [facility] Address [address] [place] [address] Care Team Providers Care Tree Cutter Name Role Phone Unavailable Primary Care Provider Unavailabl e Encounter Details Date Type Department Care Team (Late st Contact Info) Description 10/06/2024 Orders Only DENISE CESAR [address] [place] [address] Maria Elena Dolan MA Social History [...] EDT Routine DENISE CESAR [address] [place] [address] Aditya Cervantes DO [facility] [place] [address] documented as of this encounter Procedures Procedure [...]
--- OUTSIDE RECORDS SUMMARY | 2025-02-02 09:06 | XMS_ITS | Encounter Summary ---
Author Organization [facility] Address [address] [place] [address] Care Team Providers Care Naval Surface Fire Support Planner Name Role Phone Unavailable Primary Care Provider Unavailabl e Encounter Details Date Type Department Care Team (Late st Contact Info) Description 01/03/2024 Abstract DENISE CESAR [address] [facility] [place] [phone] Aditya Cervantes, DO [address] [place] [place], [facility] Social History Tobacco Use [...] 10:10 AM EDT Routine DENISE CESAR [address] [facility] [place] [place] [phone] Aditya Cervantes, DO [address] [place] [place], [place] [phone] documented as of this encounter Visit Diagnoses Not on filedocumented in this encounter
--- OUTSIDE RECORDS SUMMARY | 2025-02-02 09:06 | XMS_ITS | Encounter Summary ---
Author Organization [facility] Address [address] [place] [address] Care Team Providers Care Sales Communications Manager Name Role Phone Unavailable Primary Care Provider Unavailabl e Encounter Details Date Type Department Care Team (Late st Contact Info) Description 12/21/2023 Abstract NOMJean Carlos CESAR [address] [place] [phone] Hedy Singh LPN [address] [place] [id number] Social History Tobacco Use Types Packs/Day Years [...] DENISE CESAR [address] [place] [phone] Aditya Cervantes DO [address] [facility] [address] [place], [place] [phone] documented as of this encounter Visit Diagnoses Not on filedocumented in this encounter
--- OUTSIDE RECORDS SUMMARY | 2025-02-02 09:06 | XMS_ITS | Encounter Summary ---
Author Organization [facility] Address [address] [place] [address] Care Team Providers Care Catering And Events Manager Name Role Phone Unavailable Primary Care Provider Unavailabl e Encounter Details Date Type Department Care Team (Late st Contact Info) Description 10/28/2023 Clinisync Result Encounter [facility] External Department Unsolicited Bruce Cervantes, DO [address] [place] [address] Social History Tobacco Use Types Packs/Day Years [...] EDT Routine [facility] [place] [facility] [address] [facility] [place] [address] Bruce Cervantes DO [address] [place] [address] documented as of this encounter Procedures Procedure Name Priority Date/Time Associated Diagnosis Comments US OB GROWTH 10/28/2023 9:56 AM EDT documented in this encounter Results * US OB GROWTH (10/28/2023 9:56 AM EDT) Anatomical Region Laterality Modality Other 10/28/2023 9:56 AM EDT Narrative 10/28/2023 9:59 [place] [address] Ultrasound Report Signed Patient: ESTEFANIA CEDEÑO MR#: [id number] : 1995 Acct:[id number] Age/Sex: 28 / F ADM Date: 10/28/23 Loc: US Attending Dr: Bruce Cervantes D.O. Ordering Physician: Bruce Cervantes D.O. Date of Service: 10/28/23 Procedure(s): US OB growth Accession Number(s): [id number] cc: Bruce Cervantes D.O.; Physician,Non-Staff Roberto The [place] [id number] Patient Name: ESTEFANIA CEDEÑO MRN: [id number] date: 1995 Sex: F Assigned Patient Location: US Current Patient Location: US Accession/Order Number: [id number] Exam Date: 10/28/2023 08:55 Report Date: 10/28/2023 [...] M.D. Signed By: 10/28/2359 DD/ 5 TD/TT: House Visitor: Procedure Note Radiology, Radiologist, - 10/28/2023 [place] [address] Ultrasound Report Signed Patient: TRINITY CEDEÑO#: [id number] : 1995Acct:[id number] Age/Sex: Date: 10/28/23 Loc: US Attending Dr: Bruce Cervantes D.O. Ordering Physician: Bruce Cervantes D.O. Date of Service: 10/28/23 Procedure(s): US OB growth Accession Number(s): [id number] cc: Bruce Cervantes D.O.; Physician,Non-Staff Roberto The [place] [address] Patient Name: ESTEFANIA CEDEÑO MRN: [id number] date: 1995 Sex: F Assigned Patient Location: US Current Patient Location: US Accession/Order Number: [id number] Exam Date: 10/28/2023 08:55 Report Date: 10/28/2023 [...] Kurt Stone M.D. Signed By:10/28/2359 DD/ TD/TT: House Visitor: us Bruce Cervantes DO [facility] Final Result documented in this encounter Visit Diagnoses Not on filedocumented in this encounter
--- OUTSIDE RECORDS SUMMARY | 2025-02-02 09:06 | XMS_ITS | Encounter Summary ---
Author Organization [facility] Address [address] [place] [address] Care Team Providers Care Marine Steam Fitter Helper Name Role Phone Unavailable Primary Care Provider Unavailabl e Encounter Details Date Type Department Care Team (Late st Contact Info) Description 01/23/2025 Bamboo flowsheet DENISE CESAR [address] [facility] [place] [address] Latasha Padgett PA [address] [facility] [address] [place], [facility] Social History Tobacco Use Types Packs/Day [...] AM EDT Routine NOMJean Carlos CESAR [address] [facility] [place] [phone] Aditya Cervantes DO [address] [facility] [address] [place], [facility] documented as of this encounter Visit Diagnoses Not on filedocumented in this encounter
--- OUTSIDE RECORDS SUMMARY | 2025-02-02 09:06 | XMS_ITS | Encounter Summary ---
Author Organization [facility] Address [address] [place] [address] Care Team Providers Care Chemical Plant Operator Name Role Phone Unavailable Primary Care Provider Unavailabl e Encounter Details Date Type Department Care Team (Late st Contact Info) Description 12/23/2023 Clinisync Result Encounter [facility] External Department Unsolicited Bruce Cervantes, DO [address] [place] [address] Social History Tobacco Use Types Packs/Day Years [...] EDT Routine [facility] [place] [facility] [address] [facility] [place] [address] Bruce Cervantes DO [address] [place] [address] documented as of this encounter Procedures Procedure Name Priority Date/Time Associated Diagnosis Comments US OB BPP W NON-STRESS 12/23/2023 10:41 AM EDT documented in this encounter Results * US OB BPP W NON-STRESS (12/23/2023 10:41 AM EDT) Anatomical Region Laterality Modality Other 12/23/2023 10:4 1 AM EDT Narrative 12/23/2023 10:43 AM EDT The [address] [address] Ultrasound Report Signed Patient: ESTEFANIA CEDEÑO MR#: [id number] : 1995 Acct:[id number] Age/Sex: 28 / F ADM Date: 12/23/23 Loc: [facility] [address]: Bruce Cervantes D.O. Ordering Physician: Bruce Cervantes D.O. Date of Service: 12/23/23 Procedure(s): US OB BPP w non-stress Accession Number(s): [id number] cc: Bruce Cervantes D.O.; Physician,Non-Staff Roberto The [place] [id number] Patient Name: ESTEFANIA CEDEÑO MRN: [id number] date: 1995 Sex: F Assigned Patient Location: [facility] Current Patient Location: [facility] Accession/Order Number: [id number] Exam Date: 12/23/2023 10:00 Report Date: 12/23/2023 [...] Signed By: 12/23/23 1043 DD/ 1041 TD/TT: Consumer Education Specialist: Procedure Note Radiology, Radiologist, MD - 12/23/2023 The [place] [id number] Ultrasound Report Signed Patient: TRINITY CEDEÑO#: [id number] : 1995Acct:[id number] Age/Sex: 28 / FADM Date: 12/23/23 Loc: [facility] 254-[address]: Bruce Cervantes D.O. Ordering Physician: Bruce Cervantes D.O. Date of Service: 12/23/23 Procedure(s): US OB BPP w non-stress Accession Number(s): [id number] cc: Bruce Cervantes D.O.; Physician,Non-Staff Roberto The [place] [id number] Patient Name: ESTEFANIA CEDEÑO MRN: [id number] date: 1995 Sex: F Assigned Patient Location: [facility] Current Patient Location: [facility] Accession/Order Number: [id number] Exam Date: 12/23/2023 10:00 Report Date: 12/23/2023 [...] M.D. Signed By:12/23/23 1043 DD/ 1041 TD/TT: Consumer Education Specialist: us Bruce Cervantes DO [facility] Final Result documented in this encounter Visit Diagnoses Not on filedocumented in this encounter
--- OUTSIDE RECORDS SUMMARY | 2025-02-02 09:06 | XMS_ITS | Encounter Summary ---
Author Organization [facility] Address [address] [place] [address] Care Team Providers Care Dye Lab Technician Name Role Phone Unavailable Primary Care Provider Unavailabl e Encounter Details Date Type Department Care Team (Late st Contact Info) Description 01/19/2025 Clinisync Result Encounter [facility] External Department Unsolicited Bruce Cervantes [address] [place] [address] Social History Tobacco Use Types Packs/Day Years [...] EDT Routine [facility] [place] [facility] [address] [place] [phone] Bruce Cervantes DO [address] [place] [address] [place] [address] documented as of this encounter Procedures Procedure Name Priority Date/Time Associated Diagnosis Comments US OB BPP W NON-STRESS 01/19/2025 2:26 PM EDT documented in this encounter Results * US OB BPP W NON-STRESS (01/19/2025 2:26 PM EDT) Anatomical Region Laterality Modality Other 01/19/2025 2:26 PM EDT Narrative 01/19/2025 2:29 PM EDT [place] [id number] Ultrasound Report Signed Patient: ESTEFANIA CEDEÑO MR#: [id number] : 1995 Acct:[id number] Age/Sex: 29 / F ADM Date: 01/19/25 Loc: US Attending Dr: Bruce Cervantes D.O. Ordering Physician: Bruce Cervantes D.O. Date of Service: 01/19/25 Procedure(s): US OB BPP w non-stress Accession Number(s): [id number] cc: Bruce Cervantes D.O.; Physician,Non-Staff Roberto The [address] [address] Patient Name: ESTEFANIA CEDEÑO MRN: [facility]:[id number] date: 1995 Sex: F Assigned Patient Location: [facility] Current Patient Location: Accession/Order Number: [id number] Exam Date: 01/19/2025 09:10 Report Date: 01/19/2025 [...] Saez M.D. 01/19/2025 2:26 PM Dictation [facility] Electronically authenticated by: [id number] Y Date: 01/19/2025 14:26 Dictated By: Carroll Saez D.O. Signed By: 01/19/25 1429 DD/ 142 TD/TT: Evaluation Manager: Procedure Note Radiology, Radiologist, - 01/19/[address] [address] Ultrasound Report Signed Patient: ESTEFANIA CEDEÑO JMR#: [id number] : 1995Acct:[id number] Age/Sex: 29 / FADM Date: 01/19/25 Loc: US Attending Dr: Bruce Cervantes D.O. Ordering Physician: Bruce Cervantes D.O. Date of Service: 01/19/25 Procedure(s): US OB BPP w non-stress Accession Number(s): [id number] cc: Bruce Cervantes D.O.; Physician,Non-Staff Roberto The [place] [address] Patient Name: ESTEFANIA CEDEÑO MRN: [id number] date: 1995 Sex: F Assigned Patient Location: [facility] Current Patient Location: Accession/Order Number: [id number] Exam Date: 01/19/2025 09:10 Report Date: 01/19/2025 [...] Saez M.D. 01/19/2025 2:26 PM Dictation Location: [facility] Electronically authenticated by: [id number] Y Date: 4:26 Dictated By: Carroll Saez D.O. Signed By:01/19/25 1429 DD/ 142 TD/TT: Evaluation Manager: us Bruce Cervantes DO [facility] Final Result documented in this encounter Visit Diagnoses Not on filedocumented in this encounter
--- OUTSIDE RECORDS SUMMARY | 2025-02-02 09:06 | XMS_ITS | Clinical Summary ---
Author Organization [facility] Address [address] [place] [address] Care Team Providers Care Sales Assistant Name Role Phone Unavailable Primary Care Provider Unavailabl e Allergies Active Allergy Reactions Criticality Noted Date Comments Other 04/18/2024 NUTS Triamcinolone Other,Hives High 10/13/2013 Had to have reconstructive surgery. Dimpling of the skin Medications Vit-Fe Fumarate-FA (PNV Plus Multivitamin) 27-1 MG tabletIndicatio ns:Encounter for supervision of normal first in first trimester ([facility]) Take 1 tablet by mouth Daily 30 tablet 11 5 Active aspirin 81 MG EC tablet Take 81 mg by mouth Daily Active Continuous Glucose Transmitter (Dexcom G6 transmitter) miscIndications :Gestational diabetes mellitus (GDM), antepartum, gestational diabetes method of control unspecified ([facility]) Use as instructed 1 each 5 Active metFORMIN XR (Glucophage-XR) 500 MG 24 hr tabletIndicatio ns:Hyperglycemi a during ([facility]) Take 1 tablet (500 mg) by mouth in the evening. Take with meals Do not crush, chew, or split. 30 tablet 11 5 02/09/20 25 Active Continuous Glucose Sensor (Dexcom G6 Sensor) miscIndications :Elevated glucose tolerance test,28 weeks gestation of ([facility]),Gesta tional diabetes mellitus (GDM), antepartum, gestational diabetes method of control unspecified ([facility]) 1 each Every 10 (ten) days 3 each 3 5 Active Continuous Glucose Sensor (Dexcom G6 Sensor) miscIndications :Elevated glucose tolerance test,28 weeks gestation of ([facility]),Gesta tional diabetes mellitus (GDM), antepartum, gestational diabetes method of control unspecified ([facility]) 1 each Every 10 (ten) days 3 each 3 5 01/19/20 25 Discontin ued(Reord er) Resolved Problems Problem Noted Date Diagnosed Date Resolved Date Excessive growth affec ting management of mother, antepartum ([facility]) 12/06/2023 01/03/20 24 Third trimester ([facility]) 12/06/2023 01/03/2024 Encounters Date Type Department Care Team Description 01/26/2025 Clinisync Result Encounter NOMS External Department Unsolicited Bruce Cervantes, DO 01/26/2025 Clinisync Result Encounter NOMS External Department Unsolicited Shreya Cervantesy, DO 01/23/2025 9:50 [place] [address] Latasha Padgett PA Third trimester ([facility]); 34 weeks gestation of ([facility]) 01/23/2025 [place] [phone] Latasha Padgett PA 01/19/2025 Clinisync Result Encounter NOMS External Department Unsolicited Shreya Cervantesy, DO 01/18/2025 [place] [phone] Cammie Polo MA Elevated glucose tolerance test; 28 weeks gestation of ([facility]); Gestational diabetes mellitus (GDM), antepartum, gestational diabetes method of control unspecified ([facility]) 01/09/2025 11:10 [place] [phone] Bruce Cervantes, DO Third trimester ([facility]); 32 weeks gestation of ([facility]); Gestational diabetes mellitus (GDM), antepartum, gestational diabetes method of control unspecified ([facility]); Hyperglycemia during ([facility]) 01/09/2025 Abstract [facility] CORONAG[facility] [address] [facility] [address] [facility] [place] [address] Bruce Cervantes, 01/09/2025 Abstract [facility] [address] [place] [address] Bruce Cervantes, 01/09/2025 Bamboo flowsheet [facility] [place] [place] [phone] Bruce Cervantes, 12/27/2024 11:00 AM EDT Ancillary Procedure [facility] [place] [address] Elevated glucose tolerance test; Gestational diabetes mellitus (GDM), antepartum, gestational diabetes method of control unspecified ([facility]) 12/27/2024 10:20 AM EDT Routine [facility] [place] [place] [address] Latasha Padgett PA Third trimester ([facility]) 12/27/2024 Bamboo flowsheet [facility] iGa CORONAGYRocio [place] [address] Latasha Padgett PA 12/19/2024 Telephone [facility] [place] [place] [address] Cammie Polo MA 12/13/2024 1:40 PM EDT Routine [facility] CORON[facility] [place] [address] Bruce Cervantes DO Elevated glucose tolerance test; History of gestational diabetes; Third trimester ([facility]); 28 weeks gestation of ([facility]); Gestational diabetes mellitus (GDM), antepartum, gestational diabetes method of control unspecified ([facility]) 12/13/2024 [place] [address] Hedy Singh LPN GLUCOSE TOLERANCE 3 HOUR 12/12/2024 Clinisync Result Encounter NOMS External Department Unsolicited Bruce Cervantes DO 12/05/2024 Clinisync Result Encounter NOMS External Department Unsolicited Latasha Padgett PA 12/05/2024 Clinisync Result Encounter NOMS External Department Unsolicited Bruce Cervantes DO 11/28/2024 Abstract NOMJean Carlos CESAR [address] [place] [address] [place] [address] Bruce Cervantes DO 11/22/2024 1:50 PM [place] [address] Bruce Cervantes DO Dizziness (Primary Dx); 25 weeks gestation of ([facility]); Second trimester ([facility]); History of gestational diabetes; Diabetes mellitus screening 11/22/2024 Bamboo flowsheet [facility] [place] CESAR [address] [place] [address] Bruce Cervantes DO from Last 3 Months [...] AM EDT Routine [facility] OBG[facility] [address] [facility] [address] [place] [phone] Bruce Cervantes, [address] [place] [address] Health Maintenance Due Date Last Done Comments Influenza Vaccine (#1) 2025 Procedures Procedure Name Priority Date/Time Associated Diagnosis Comments US OB GROWTH 01/26/2025 11:00 AM EDT US OB BPP W NON-STRESS 01/26/2025 11:00 AM EDT US OB BPP W NON-STRESS 01/19/2025 2:26 PM EDT POCT URINALYSIS DIPSTICK Routine 01/09/2025 11:28 AM EDT Third trimester ([facility]) US OB FOLLOW UP TRANSABDOMINAL APPROACH Routine 12/27/2024 11:31 AM EDT Elevated glucose tolerance test Gestational diabetes mellitus (GDM), antepartum, gestational diabetes method of control unspecified ([facility]) POCT URINALYSIS DIPSTICK Routine 12/27/2024 10:47 AM EDT Third trimester ([facility]) POCT URINALYSIS DIPSTICK Routine 12/13/2024 2:01 PM EDT Third trimester ([facility]) 28 weeks gestation of ([facility]) GLUCOSE TOLERANCE 3 HOUR Routine 12/12/2024 11:18 AM EDT GLUCOSE 1 HOUR Routine 12/05/2024 10:53 AM EDT ALL CBC WITH AUTO DIFF Routine 10:53 AM EDT ECG 12-LEAD 12/05/2024 9:07 AM EDT POCT URINALYSIS DIPSTICK Routine 11/22/2024 2:36 PM EDT 25 weeks gestation of ([facility]) Second trimester ([facility]) History of gestational diabetes from Last 3 Months Results * US OB GROWTH (01/26/2025 11:00 AM EDT) Anatomical Region Laterality Modality Other 01/26/2025 11:0 0 AM EDT Narrative 01/26/2025 11:03 [place] [address] Ultrasound Report Signed Patient: ESTEFANIA CEDEÑO MR#: [id number] : 1995 Acct:[id number] Age/Sex: 29 / F ADM Date: 01/26/25 Loc: US Attending Dr: Bruce Cervantes D.O. Ordering Physician: Bruce Cervantes D.O. Date of Service: 01/26/25 Procedure(s): US OB growth Accession Number(s): [id number] cc: Bruce Cervantes D.O.; Physician,Non-Staff M.DAsiya The [place] [address] Patient Name: ESTEFANIA CEDEÑO MRN: [id number] date: 1995 Sex: F Assigned Patient Location: Current Patient Location: Accession/Order Number: [id number] Exam Date: 01/26/2025 09:08 Report Date: 01/26/2025 [...] Bright M.D. 01/26/2025 11:00 AM Dictation Location: [facility] Electronically authenticated by: [id number] Y Date: 01/26/2025 11:00 Dictated By: Lindsey Bright M.D. Signed By: 01/26/25 1103 DD/ 1100 TD/TT: Gut Puller: Procedure Note Radiology, Radiologist, MD - 01/26/2025 [place] [address] Ultrasound Report Signed Patient: ESTEFANIA CEDEÑO JMR#: [id number] : 1995Acct:[id number] Age/Sex: 29 / FADM Date: 01/26/25 Loc: US Attending Dr: Bruce Cervantes D.O. Ordering Physician: Bruce Ceravntes D.O. Date of Service: 01/26/25 Procedure(s): US OB growth Accession Number(s): [id number] cc: Bruce Cervantes D.O.; Physician,Non-Staff Roberto The [place] [id number] Patient Name: ESTEFANIA CEDEÑO MRN: [facility]:[id number] date: 1995 Sex: F Assigned Patient Location: US Current Patient Location: Accession/Order Number: [id number] Exam Date: 01/26/2025 09:08 Report Date: 01/26/2025 [...] Bright M.D. 01/26/2025 11:00 AM Dictation Location: [place] [address] Electronically authenticated by: [id number] Y Date: 1:00 Dictated By: Lindsey Bright M.D. Signed By:01/26/25 1103 DD/ 1100 TD/TT: Gut Puller: us Bruce Cervantes DO [facility] Final Result * US OB BPP W NON-STRESS (01/26/2025 11:00 AM EDT) Only the most recent of2 resultswithin the time period is included. Anatomical Region Laterality Modality Other 01/26/2025 11:0 0 AM EDT Narrative 01/26/2025 11:03 [place] [address] Ultrasound Report Signed Patient: ESTEFANIA CEDEÑO MR#: [id number] : 1995 Acct:[id number] Age/Sex: 29 / F ADM Date: 01/26/25 Loc: US Attending Dr: Bruce Cervantes D.O. Ordering Physician: Bruce Cervantes D.O. Date of Service: 01/26/25 Procedure(s): US OB BPP w non-stress Accession Number(s): [id number] cc: Bruce Cervantes D.O.; Physician,Non-Staff Roberto The [place] [id number] Patient Name: ESTEFANIA CEDEÑO MRN: [facility]:[id number] date: 1995 Sex: F Assigned Patient Location: [facility] Current Patient Location: Accession/Order Number: [id number] Exam Date: 01/26/2025 09:08 Report Date: 01/26/2025 [...] oz. +/- 14 ounces (73%) US/US OB BPP w non-stress IMPRESSION: SINGLE LIVE INTRAUTERINE GESTATION WITH ULTRASOUND [...] Bright M.D. 01/26/2025 11:00 AM Dictation Location: [place] [address] Electronically authenticated by: [id number] Y Date: 01/26/2025 11:00 Dictated By: Lindsey Bright M.D. Signed By: 01/26/25 1103 DD/ 1100 TD/TT: Gut Puller: Procedure Note Radiology, Radiologist, - 01/26/[address] [address] Ultrasound Report Signed Patient: ESTEFANIA CEDEÑO JMR#: [id number] : 1995Acct:[id number] Age/Sex: 29 / FADM Date: 01/26/25 Loc: US Attending Dr: Bruce Cervantes D.O. Ordering Physician: Bruce Cervantes D.O. Date of Service: 01/26/25 Procedure(s): US OB BPP w non-stress Accession Number(s): [id number] cc: Bruce Cervantes D.O.; Physician,Non-Staff Roberto [place] [id number] Patient Name: ESTEFANIA CEDEÑO MRN: [facility]:[id number] date: 1995 Sex: F Assigned Patient Location: [facility] Current Patient Location: Accession/Order Number: [id number] Exam Date: 01/26/2025 09:08 Report Date: 01/26/2025 [...] oz. +/- 14 ounces (73%) US/US OB BPP w non-stress IMPRESSION: SINGLE LIVE INTRAUTERINE GESTATION WITH ULTRASOUND [...] [Y] 2/2 DEE: 12.1 cm Total score: 88 IMPRESSION: NORMAL BIOPHYSICAL PROFILE. Impression dictated by: Lindsey Bright M.D. 01/26/2025 11:00 AM Dictation Location: [place] [address] Electronically authenticated by: [id number] Y Date: 1:00 Dictated By: Lindsey Bright M.D. Signed By:01/26/25 1103 DD/ 1100 TD/TT: Gut Puller: us Bruce Billy DO [facility] Final [...] II, MD, PHD at 28-Dec-2024 08:33:38 AM [facility] Procedure Note Peng Johnson MD - [...] signed by PENG JOHNSON II, MD, PHD [id number] 08:33:38 AM [facility] us Bruce Billy DO IMG OB [...] ORDERABLES Final Resul t Performing Organization Address City/[facility]/ZIP Co de Phone Number [facility] TB * (ABNORMAL) GLUCOSE 1 HOUR (12/05/2024 10:53 AM EDT) GLUCOSE 1 HOUR 176(H) <130 mg/dL TBH 12/05/2024 10:5 3 AM EDT 12/05/2024 10:54 AM EDT Narrative [facility] - 12/05/2024 11:23 AM EDT us Bruce Billy DO LAB BLOOD ORDERABLES Final Resul t [facility] * (ABNORMAL) ALL CBC WITH AUTO DIFF (12/05/2024 10:53 AM EDT) [facility] WBC 11.3(H) 4.0 - 11.0 10 [...] [facility] - 12/05/2024 11:14 AM EDT Bruce Cervantes DO [facility] Final Result [facility] * ECG 12-LEAD (12/05/2024 9:07 AM EDT) Anatomical Region Laterality Modality Other 12/05/2024 9:07 AM EDT Narrative 12/07/2024 9:00 [place] [address] Electrocardiograph Report Signed Patient: ESTEFANIA CEDEÑO MR#: [id number] : 1995 Acct:[id number] Age/Sex: 29 / F ADM Date: 12/05/24 Loc: CR Attending Dr: Latasha Padgett Ordering Physician: Latasha Padgett Date of Service: 12/05/24 Procedure(s): ECG 12 lead Accession Number(s): [id number] cc: [facility] Test Date: 2024-12-05 Pat Name: ESTEFANIA CEDEÑO Department: Room: - Gender: Female Nanotechnologist: : 1995 Requested By: 0923 Order Number: [id number] Reading MD: ANTON THORPE Measurements Intervals [place] Rate: 68 P: 55 WA: 116 QRS: 72 QRSD: 94 T: 14 QT: 411 QTc: 439 Interpretive Statements SINUS RHYTHM WITH SHORT WA INTERVAL NONSPECIFIC T-WAVE ABNORMALITY No previous ECG available for comparison Electronically Signed On 12-07-2024 9:00:49 EDT by ANTON THORPE Dictated By: Anton Thorpe M.D. Signed By: 12/07/2489912/07/24899 DD/ 09 TD/TT: Gut Puller: Procedure Note Radiology, Radiologist, - 12/07/2024 The [place] [id number] Electrocardiograph Report Signed Patient: ESTEFANIA CEDEÑO JMR#: [id number] : 1995Acct:[id number] Age/Sex: 29 / FADM Date: 12/05/24 Loc: CR Attending Dr: Latasha Padgett Ordering Physician: Latasha Padgett Date of Service: 12/05/24 Procedure(s): ECG 12 lead Accession Number(s): [id number] cc: [facility] Test Date: 2024-12-05 Pat Name: ESTEFANIA CEDEÑO Department: Room: - Gender: Female Nanotechnologist: : 1995 Requested By: 0923 Order Number: [id number] Reading MD: ANTON THORPE Measurements Intervals [place] Rate: 68 P: 55 WA: 116 QRS: 72 QRSD: 94 T: 14 QT: 411 QTc: 439 Interpretive Statements SINUS RHYTHM WITH SHORT WA INTERVAL NONSPECIFIC T-WAVE ABNORMALITY No previous ECG available for comparison Electronically Signed On 12-07-2024 9:00:49 EDT by ANTON THORPE Dictated By: Anton Thorpe M.D. Signed By:12/07/2489912/07/24899 DD/ 6 TD/TT: Gut Puller: Latasha Padgett PA [facility] Final Result from Last 3 Months Insurance [employer] [place]
--- OUTSIDE RECORDS SUMMARY | 2025-02-02 09:06 | XMS_ITS | Encounter Summary ---
Author Organization [facility] Address [address] [place] [address] Care Team Providers Care Boston Cutter Name Role Phone Unavailable Primary Care Provider Unavailabl e Encounter Details Date Type Department Care Team (Late st Contact Info) Description 12/15/2023 Abstract NOMJean Carlos CESAR [address] [place] [phone] Trini Aquino LPN [address] [facility] [place] [facility] [id number] Social History Tobacco Use Types Packs/Day Years [...] 10:10 AM EDT Routine DENISE CESAR [address] [place] [address] Aditya Cervantes DO [address] [facility] [address] [place] [id number] documented as of this encounter Visit Diagnoses Not on filedocumented in this encounter
--- OUTSIDE RECORDS SUMMARY | 2025-02-02 09:06 | XMS_ITS | Encounter Summary ---
Author Organization [facility] Address [address] [place] [address] Care Team Providers Care Test Rider Name Role Phone Unavailable Primary Care Provider Unavailabl e Encounter Details Date Type Department Care Team (Late st Contact Info) Description 01/26/2025 Clinisync Result Encounter NOMS External Department Unsolicited Bruce Cervantes DO [address] [place] [address] [place] [address] Social History Tobacco Use Types Packs/Day Years [...] EDT Routine NOMJean Carlos [place] OBG[facility] [address] [place] [phone] Bruce Cervantes DO [address] [place] [address] [place] [address] documented as of this encounter Procedures Procedure Name Priority Date/Time Associated Diagnosis Comments US OB BPP W NON-STRESS 01/26/2025 11:00 AM EDT documented in this encounter Results * US OB BPP W NON-STRESS (01/26/2025 11:00 AM EDT) Anatomical Region Laterality Modality Other 01/26/2025 11:0 0 AM EDT Narrative 01/26/2025 11:03 [place] [address] Ultrasound Report Signed Patient: ESTEFANIA CEDEÑO MR#: [id number] : 1995 Acct:[id number] Age/Sex: 29 / F ADM Date: 01/26/25 Loc: US Attending Dr: Bruce Cervantes D.O. Ordering Physician: Bruce Cervantes D.O. Date of Service: 01/26/25 Procedure(s): US OB BPP w non-stress Accession Number(s): [id number] cc: Bruce Cervantes D.O.; Physician,Non-Staff Roberto The [place] [id number] Patient Name: ESTEFNAIA CEDEÑO MRN: [id number] date: 1995 Sex: F Assigned Patient Location: [facility] Current Patient Location: Accession/Order Number: [id number] Exam Date: 01/26/2025 09:08 Report Date: 01/26/2025 [...] Bright M.D. 01/26/2025 11:00 AM Dictation Location: [place] Electronically authenticated by: [id number] Y Date: 01/26/2025 11:00 Dictated By: Lindsey Bright M.D. Signed By: 01/26/25 1103 DD/ 1100 TD/TT: Cook Mayonnaise: Procedure Note Radiology, Radiologist, MD - 01/26/2025 [place] [address] Ultrasound Report Signed Patient: ESTEFANIA CEDEÑO R#: [id number] : 1995Acct:[id number] Age/Sex: 29 / FADM Date: 01/26/25 Loc: US Attending Dr: Bruce Cervantes D.O. Ordering Physician: Bruce Cervantes D.O. Date of Service: 01/26/25 Procedure(s): US OB BPP w non-stress Accession Number(s): [id number] cc: Bruce Cervantes D.O.; Physician,Non-Staff Roberto The [address] [address] Patient Name: ESTEFANIA CEDEÑO MRN: [id number] date: 1995 Sex: F Assigned Patient Location: [facility] Current Patient Location: Accession/Order Number: [id number] Exam Date: 01/26/2025 09:08 Report Date: 01/26/2025 [...] Bright M.D. 01/26/2025 11:00 AM Dictation Location: [place] [address] Electronically authenticated by: [id number] Y Date: 1:00 Dictated By: Lindsey Bright M.D. Signed By:01/26/25 1103 DD/ 1100 TD/TT: Cook Mayonnaise: us Bruce Cervantes DO [facility] Final Result documented in this encounter Visit Diagnoses Not on filedocumented in this encounter
--- OUTSIDE RECORDS SUMMARY | 2025-02-02 09:06 | XMS_ITS | Encounter Summary ---
Author Organization [facility] Address [address] [place] [address] Care Team Providers Care Fiscal Accountant Name Role Phone Unavailable Primary Care Provider Unavailabl e Encounter Details Date Type Department Care Team (Late st Contact Info) Description 09/16/2023 Clinisync Result Encounter NOMS External Department Unsolicited Bruce Cervantes, DO [address] [place] [address] Social History Tobacco Use Types Packs/Day Years [...] EDT Routine NOMJean Carlos [place] OBG[facility] [address] [place] [address] Bruce Cervantes DO [address] [place] [address] documented as of this encounter Procedures Procedure Name Priority Date/Time Associated Diagnosis Comments US OB FOLLOW UP 09/16/2023 11:19 AM EDT documented in this encounter Results * US OB FOLLOW UP (09/16/2023 11:19 AM EDT) Anatomical Region Laterality Modality Radiographic Mari ging 09/16/2023 11:1 9 AM EDT Narrative 09/16/2023 11:22 [place] [address] Ultrasound Report Signed Patient: ESTEFANIA CEDEÑO MR#: [id number] : 1995 Acct:[id number] Age/Sex: 28 / F ADM Date: 09/16/23 Loc: NOMS Attending Dr: Bruce Cervantes D.O. Ordering Physician: Bruce Cervantes D.O. Date of Service: 09/16/23 Procedure(s): US OB follow up Accession Number(s): [id number] cc: Bruce Cervantes D.O.; Physician,Non-Staff Roberto The [place] [id number] Patient Name: ESTEFANIA CEDEÑO MRN: [id number] date: 1995 Sex: F Assigned Patient Location: [facility] Current Patient Location: [facility] Accession/Order Number: [id number] Exam Date: 09/16/2023 09:58 Report Date: 09/16/2023 [...] Signed By: 09/16/23 1122 DD/ 1119 TD/TT: Automobile Mechanic Apprentice: Procedure Note Radiology, Radiologist, - 09/16/2023 The [place] [id number] Ultrasound Report Signed Patient: TRINITY CEDEÑO#: [id number] : 1995Acct:[id number] Age/Sex: 28 / FADM Date: 09/16/23 Loc: NOMS Attending Dr: Bruce Cervantes D.O. Ordering Physician: Bruce Cervantes D.O. Date of Service: 09/16/23 Procedure(s): US OB follow up Accession Number(s): [id number] cc: Bruce Cervantes D.O.; Physician,Non-Staff Roberto [place] [address] Patient Name: ESTEFANIA CEDEÑO MRN: [id number] date: 1995 Sex: F Assigned Patient Location: [facility] Current Patient Location: [facility] Accession/Order Number: [id number] Exam Date: 09/16/2023 09:58 Report Date: 09/16/2023 [...] M.D. Signed By:09/16/23 1122 DD/ 1119 TD/TT: Automobile Mechanic Apprentice: us Bruce Cervantes DO IMG XR PROCEDURES Final Result documented in this encounter Visit Diagnoses Not on filedocumented in this encounter
--- OUTSIDE RECORDS SUMMARY | 2025-02-02 09:06 | XMS_ITS | Encounter Summary ---
Author Organization [facility] Address [address] [place] [address] Care Team Providers Care Corporate Communications Intern Name Role Phone Unavailable Primary Care Provider Unavailabl e Encounter Details Date Type Department Care Team (Late st Contact Info) Description 06/11/2023 Clinisync Result Encounter NOMS External Department Unsolicited Bruce Cervantes, DO [address] [place] [address] Social History Tobacco Use Types Packs/Day Years [...] AM EDT Routine [facility] G[facility] OBGYN [address] [facility] [place] [address] Bruce Cervantes DO [address] [place] [address] documented as of this encounter Procedures Procedure Name Priority Date/Time Associated Diagnosis Comments US OB TRANSVAGINAL 06/11/2023 11 :38 AM EST documented in this encounter Results * US OB TRANSVAGINAL (06/11/2023 11:38 AM EST) Anatomical Region Laterality Modality Other 06/11/2023 11:3 8 AM EST Narrative 06/11/2023 11:41 [place] [address] Ultrasound Report Signed Patient: ESTEFANIA CEDEÑO MR#: [id number] : 1995 Acct:[id number] Age/Sex: 28 / F ADM Date: 06/11/23 Loc: US Attending Dr: Bruce Cervantes D.O. Ordering Physician: Bruce Cervantes D.O. Date of Service: 06/11/23 Procedure(s): US OB transvaginal Accession Number(s): [id number] cc: Bruce Cervantes D.O.; Physician,Non-Staff Roberto [place] [id number] Patient Name: ESTEFANIA CEDEÑO MRN: [id number] date: 1995 Sex: F Assigned Patient Location: US Current Patient Location: US Accession/Order Number: [id number] Exam Date: 06/11/2023 10:42 Report Date: 06/11/2023 [...] Signed By: 06/11/23 1141 DD/ 1138 TD/TT: Archivist Political History: Procedure Note Radiology, Radiologist, MD - 06/11/2023 [place] [address] Ultrasound Report Signed Patient: TRINITY CEDEÑO#: [id number] : 1995Acct:[id number] Age/Sex: 28 / FADM Date: 06/11/23 Loc: US Attending Dr: Bruce Cervantes D.O. Ordering Physician: Bruce Cervantes D.O. Date of Service: 06/11/23 Procedure(s): US OB transvaginal Accession Number(s): [id number] cc: Bruce Cervantes D.O.; Physician,Non-Staff Roberto The [place] [id number] Patient Name: ESTEFANIA CEDEÑO MRN: [facility]:[id number] date: 1995 Sex: F Assigned Patient Location: US Current Patient Location: US Accession/Order Number: [id number] Exam Date: 06/11/2023 10:42 Report Date: 06/11/2023 11:38 At the request of: BRUEC CERVANTES Procedure: US OB transvaginal EXAMINATION: US [...] M.D. Signed By:06/11/23 1141 DD/ 1138 TD/TT: Archivist Political History: us Bruce Cervantes DO [facility] Final Result documented in this encounter Visit Diagnoses Not on filedocumented in this encounter
--- OUTSIDE RECORDS SUMMARY | 2025-02-02 09:06 | XMS_ITS | Encounter Summary ---
Author Organization [facility] Address [address] [place] [address] Care Team Providers Care Pt Sitter Name Role Phone Unavailable Primary Care Provider Unavailabl e Encounter Details Date Type Department Care Team (Late st Contact Info) Description 10/05/2023 Clinisync Result Encounter [facility] External Department Unsolicited Bruce Cervantes, DO [address] [place] [address] Social History Tobacco Use Types Packs/Day Years [...] EDT Routine [facility] [place] [facility] [address] [place] [phone] Bruce Cervantes DO [address] [place] [address] documented as of this encounter Procedures Procedure Name Priority Date/Time Associated Diagnosis Comments CT ABDOMEN/PELVIS WO CONT 10/05/2023 8:17 AM EDT documented in this encounter Results * CT ABDOMEN/PELVIS WO CONT (10/05/2023 8:17 AM EDT) Anatomical Region Laterality Modality Radiographic Mari ging 10/05/2023 8:17 AM EDT Narrative 10/05/2023 8:20 [place] [address] CT Scan Report Signed Patient: ESTEFANIA CEDEÑO MR#: [id number] : 1995 Acct:[id number] Age/Sex: 28 / F ADM Date: Loc: [facility] [address]: Bruce Cervantes D.O. Ordering Physician: Bruce Cervantes D.O. Date of Service: 10/05/23 Procedure(s): CT abdomen pelvis wo con Accession Number(s): [id number] cc: Physician,Non-Staff M.DAsiya [place] [address] Patient Name: ESTEFANIA CEDEÑO MRN: [id number] date: 1995 Sex: F Assigned Patient Location: [facility] Current Patient Location: [facility] Accession/Order Number: [id number] Exam Date: 10/05/2023 07:38 Report Date: 10/05/2023 [...] M.D. Signed By: 10/05/23819 DD/ 6 TD/TT: Specification Manager: Procedure Note Radiology, Radiologist, MD - 10/05/2023 [place] [address] CT Scan Report Signed Patient: TRINITY CEDEÑO#: [id number] : 1995Acct:[id number] Age/Sex: Date: Loc: [facility] 257-[address]: Bruce Cervantes D.O. Ordering Physician: Bruce Cervantes D.O. Date of Service: 10/05/23 Procedure(s): CT abdomen pelvis wo con Accession Number(s): [id number] cc: Physician,Non-Staff Roberto The [place] [address] Patient Name: ESTEFANIA CEDEÑO MRN: [facility]:[id number] date: 1995 Sex: F Assigned Patient Location: [facility] Current Patient Location: [facility] Accession/Order Number: [id number] Exam Date: 10/05/2023 07:38 Report Date: 10/05/2023 [...] Krueger M.D. Signed By:10/05/23819 DD/ 6 TD/TT: Specification Manager: Bruce Cervantes DO IMG XR PROCEDURES Final Result documented in this encounter Visit Diagnoses Not on filedocumented in this encounter
--- OUTSIDE RECORDS SUMMARY | 2025-02-02 09:06 | XMS_ITS | Encounter Summary ---
Author Organization [facility] Address [address] [place] [address] Care Team Providers Care Train Braker Name Role Phone Unavailable Primary Care Provider Unavailabl e Encounter Details Date Type Department Care Team (Late st Contact Info) Description 08/04/2024 Abstract DENISE CESAR [facility] [place] [phone] Aditya Cervantes, DO [address] [place], [facility] [address] Social History Tobacco Use Types Packs/Day Years [...] 02/06/2025 10:10 AM EDT Routine DENISE CESAR [facility] [place] [phone] Aditya Cervantes, DO [address] [place], [facility] [address] documented as of this encounter Visit Diagnoses Not on filedocumented in this encounter
--- OUTSIDE RECORDS SUMMARY | 2025-02-02 09:06 | XMS_ITS | Encounter Summary ---
Author Organization [facility] Address [address] [place] [address] Care Team Providers Care Video Editor Name Role Phone Unavailable Primary Care Provider Unavailabl e Encounter Details Date Type Department Care Team (Late st Contact Info) Description 04/20/2023 Abstract DENISE CESAR [address] [place] [phone] Trini Aquino LPN [address] [facility] [place] [facility] [address] Social History Tobacco Use Types Packs/Day [...] 10:10 AM EDT Routine DENISE CESAR [address] [place] [phone] Aditya Cervantes DO [address] [place] [phone] documented as of this encounter Visit Diagnoses Not on filedocumented in this encounter
--- OUTSIDE RECORDS SUMMARY | 2025-02-02 09:06 | XMS_ITS | Encounter Summary ---
Author Organization [facility] Address [address] [place] [address] Care Team Providers Care Bulk Mail Technician Name Role Phone Unavailable Primary Care Provider Unavailabl e Encounter Details Date Type Department Care Team (Late st Contact Info) Description 10/31/2024 Abstract DENISE CESAR [facility] [place] [phone] Aditya Cervantes, DO [address] [place], [facility] Social History Tobacco Use Types Packs/Day [...] 02/06/2025 10:10 AM EDT Routine DENISE CESAR [facility] [place] [phone] Aditya Cervantes, DO [address] [place], [facility] documented as of this encounter Visit Diagnoses Not on filedocumented in this encounter
--- OUTSIDE RECORDS SUMMARY | 2025-02-02 09:06 | XMS_ITS | Encounter Summary ---
Author Organization [facility] Address [address] [place] [address] Care Team Providers Care Poker Supervisor Name Role Phone Unavailable Primary Care Provider Unavailabl e Encounter Details Date Type Department Care Team (Late st Contact Info) Description 01/09/2025 Abstract DENISE CESAR [facility] [place] [phone] dAitya Cervantes, DO [address] [place], [facility] Social History Tobacco Use Types Packs/Day [...] 02/06/2025 10:10 AM EDT Routine DENISE CESAR [facility] [place] [phone] Aditya Cervantes, DO [address] [place], [facility] documented as of this encounter Visit Diagnoses Not on filedocumented in this encounter
--- OUTSIDE RECORDS SUMMARY | 2025-02-02 09:06 | XMS_ITS | Encounter Summary ---
Author Organization [facility] Address [address] [facility] [place] [address] Care Team Providers Care Frozen Foods Manager Name Role Phone Unavailable Primary Care Provider Unavailabl e Encounter Details Date Type Department Care Team (Late st Contact Info) Description 12/13/2024 Results Follow-Up DENISE CESAR [address] [facility] [place] [address] Hedy Singh LPN [address] [place] [address] GLUCOSE TOLERANCE 3 HOUR Social [...] AM EDT Routine NOMJean Carlos CESAR [address] [facility] [place] [address] Aditya Cervantes, [address] [facility] [address] [place] [address] documented as of this encounter Visit Diagnoses Not on filedocumented in this encounter
--- OUTSIDE RECORDS SUMMARY | 2025-02-02 09:06 | XMS_ITS | Encounter Summary ---
Author Organization [facility] Address [address] [place] [address] Care Team Providers Care Underwater Roboticist Name Role Phone Unavailable Primary Care Provider Unavailabl e Encounter Details Date Type Department Care Team (Late st Contact Info) Description 12/15/2023 Clinisync Result Encounter [facility] External Department Unsolicited Bruce Cervantes, DO [address] [place] [address] Social History Tobacco Use Types Packs/Day Years [...] EDT Routine [facility] [place] [facility] [address] [facility] [place] [phone] Bruce Cervantes DO [address] [place] [address] documented as of this encounter Procedures Procedure Name Priority Date/Time Associated Diagnosis Comments US OB GROWTH 12/15/2023 12:01 PM EDT [facility] BOX TEST SENT OUT Routine 12/15/2023 11:10 AM EDT documented in this encounter Results * US OB GROWTH (12/15/2023 12:01 PM EDT) Anatomical Region Laterality Modality Other 12/15/2023 12:0 1 PM EDT Narrative 12/15/2023 12:04 [place] [address] Ultrasound Report Signed Patient: ESTEFANIA CEDEÑO MR#: [id number] : 1995 Acct:[id number] Age/Sex: 28 / F ADM Date: 12/15/23 Loc: [facility] Attending Dr: Bruce Cervantes D.O. Ordering Physician: Bruce Cervantes D.O. Date of Service: 12/15/23 Procedure(s): US OB growth Accession Number(s): [id number] cc: Bruce Cervantes D.O.; Physician,Non-Staff [place] [address] Patient Name: ESTEFANIA CEDEÑO MRN: [id number] date: 1995 Sex: F Assigned Patient Location: [facility] Current Patient Location: [facility] Accession/Order Number: [id number] Exam Date: 12/15/2023 10:33 Report Date: 12/15/2023 [...] Dr. Cervantes was notified of findings by jail guard at time of imaging. Electronically authenticated by: ED KRUEGER Date: 12/15/2023 12:01 Dictated By: Ed Krueger M.D. Signed By: 12/15/23 1204 DD/ 1201 TD/TT: Regulatory Agency Director: Procedure Note Radiology, Radiologist, MD - 12/15/2023 [place] [address] Ultrasound Report Signed Patient: TRINITY CEDEÑO#: [id number] : 1995Acct:[id number] Age/Sex: 28 FADM Date: 12/15/23 Loc: [facility] Attending Dr: Bruce Cervantes D.O. Ordering Physician: Bruce Cervantes D.O. Date of Service: 12/15/23 Procedure(s): US OB growth Accession Number(s): [id number] cc: Bruce Cervantes D.O.; Physician,Non-Staff Roberto The [place] [address] Patient Name: ESTEFANIA CEDEÑO MRN: [id number] date: 1995 Sex: F Assigned Patient Location: [facility] Current Patient Location: [facility] Accession/Order Number: [id number] Exam Date: 12/15/2023 10:33 Report Date: 12/15/2023 [...] Dr. Cervantes was notified of findings by jail guard at time of imaging. Electronically authenticated by: ED KRUEGER Date: 12/15/2023 12:01 Dictated By: Ed Krueger M.D. Signed By:12/15/23 1204 DD/ 1201 TD/TT: Regulatory Agency Director: us Bruce Billy DO [facility] Final [...]
--- NOTE | 2025-02-02 09:07 | US_ITS ---
The [place] [address] Patient Name: TARA FLOREZ MRN: [id number] date: 1995 Sex: F Assigned Patient Location: [facility] Current Patient Location: Accession/Order Number: [id number] Exam Date: 02/02/2025 09:12 Report Date: 02/02/2025 10:17 At the request of: BRUCE CARD DO Procedure: US OB BPP w non-stress BIOPHYSICAL PROFILE: CLINICAL INFORMATION: HYPERGLYCEMIA DURING O99.810 COMPARISON: 01/26/2025 There is a single live intrauterine gestation in cephalic presentation. The reported gestational age is 35 weeks 3 days. The heart rate measures 145 beats per minute. FINDINGS: TONE: 1 or more episodes of activity extension and flexion of extremity or opening and closing of the hand [Y] 2/2 GROSS BODY MOVEMENTS: 3 or more discrete body or limb movements [Y] 2/2 BREATHING MOVEMENTS: 1 or more episodes of breathing lasting at least 30 seconds [Y] 2/2 DEE: A single deepest vertical pocket of amniotic fluid greater than 2 cm [Y] 2/2 DEE: 14.9 cm Total score: 01/05 US/US OB BPP w non-stress IMPRESSION: NORMAL BIOPHYSICAL PROFILE Impression dictated by: Lindsey Bright M.D. 02/02/2025 10:17 AM Dictation Location: [place] [address] Electronically authenticated by: [id number] Y Date: 02/02/2025 10:17
--- OUTSIDE RECORDS SUMMARY | 2025-02-02 09:25 | XMS_ITS | CCD ---
Author Organization [facility] Care Team Providers Care Juice Weigher Name Role Phone NO FAMILY PHYSICIAN, 837 Unavailable Unavail able FELIX GALVAN Unavailable Unavailable Miguel Holley Primary Care Provider Jackson Haas Primary Care Provider [phone] Miguel Holley Primary Care Provider Miguel Holley Primary Care Provider Miguel Holley CNP Primary Care Provider [employer] PRE PRESS PROOFER - DIANELYS, Miguel Berry Primary Care Provider MIGUEL HOLLYE Referring Unavailable MIGUEL HOLLEY Primary Care Unavailable [employer] PRE PRESS PROOFER - DIANELYS, Miguel Berry Primary Care Provider [employer] PRE PRESS PROOFER - DIANELYS, Miguel Berry Primary Care Provider Shona Lucio Primary Care Physician Yeison Holley PRE PRESS PROOFER - CUSTOMS EXAMINER, Miguel Berry Primary Care Provider [employer] PRE PRESS PROOFER - Miguel IVORY Primary Care Provider Unavailable Primary Care Provider UnavailADITYA Hernandez Referring Unavailable MIGUEL HOLLEY Primary Care Unavailable BILLY, ADITYA Attending Unavailable BILLYBOBBYY Attending Unavailable DAYRON, LATSAHA Attending Unavailable DAYRON, LATASHA Attending Unavailable DAYRON, [...] Hour] Drug Allergy 03-05-20 20 Wellbutrin SR [facility] Work Phone: Corticosteroids (6 sources) Triamcinolone Drug Allergy 10-14-19 14 Other (See Comments) [facility] Lisdexamfetamine (1 source) Lisdexamfetamine Drug Allergy 10-04-19 21 Vyvanse [facility] Work Phone: Naltrexone (4 sources) Naltrexone; Translations: [Naltrexone HCl 50 MG Oral Tablet] Drug Allergy 03-05-20 20 Naltrexone HCl [facility] Work Phone: (1 source) Triamcinolone; Translations: [TRIAMCINOLONE ACETONIDE] Drug Allergy 10-12-19 15 [facility] Rep[facility] (16 sources) Triamcinolone; Translations: [Kenalog] Drug Allergy 07-06-19 20 [facility] Work Phone: (20 sources) Triamcinolone Drug Allergy 10-14-19 14 Other (See Comments), Other, [place] (17 sources) Poison spencer Allergy to substance 07-20-19 [facility] Work Phone: (3 sources) buPROPion; Translations: [Wellbutrin SR 100 MG Oral Tablet Extended Release 12 Hour] Drug Allergy 03-05-20 20 Wellbutrin SR [facility] Work Phone: (3 sources) Naltrexone; Translations: [Naltrexone HCl 50 MG Oral Tablet] Drug Allergy 03-05-20 20 Naltrexone HCl [facility] Work Phone: (20 sources) Other Propensity [...] Active Continuous Glucose Sensor (Dexcom G6 Sensor) [facility] (14 sources) Start: 01-18-2025 Continuous Glucose Sensor (Dexcom G6 Sensor) [facility] Indications: Elevated glucose tolerance test , 28 weeks gestation of ([facility]) , Gestational diabetes mellitus (GDM), antepartum, gestational diabetes method of control unspecified ([facility]) 1 each Every 10 (ten) days 3 each 3 01/18/2025 Active Start: 12-13-2024 Continuous Glu cose Sensor (Dexcom G6 Sensor) [facility] Indications: Elevated glucose tolerance test , 28 weeks gestation of ([facility]) , Gestational diabetes mellitus (GDM), antepartum, gestational diabetes method of control unspecified ([facility]) 1 each Every 10 (ten) days 3 each 3 12/13/2024 Active Continuous Glucose Transmitt er (Dexcom G6 transmitter) mis (12 sources) Start: 12-19-2024 Continuous Glu cose Transmitter (Dexcom G6 transmitter) [facility] Indications: Gestational diabetes mellitus (GDM), antepartum, gestational diabetes method of control unspecified ([facility]) Use as instructed 1 each 12/19/2024 [...] ibuprofen 800 MG tablet 01/06/2024 Active levonorgestrel 0.825695 mg/hr intrauterine system (17 sources) Progestin, Progestin-containin g Intrauterine Device Start : 07-20 Mirena (52 MG) 20 MCG/24HR Intrauterine Intrauterine device 07/20/2019 Provider: 24 hr metFORMIN hydrochloride 500 mg extended release oral tablet (15 sources) Biguanide Start : 06-14 End: 06-14 take 1 tablet by mouth every twenty-four hours at mealtime metFORMIN XR (Glucophage-XR) 500 MG 24 hr tablet Indications: Hyperglycemia during ([facility]) Take 1 tablet (500 mg) by [...] Tablet 08/17/2019 - 09/14/2019 Provider: Miguel Holley CUSTOMS EXAMINER polysaccharide iron complex 391 mg oral capsule [...] supervision of normal first in first trimester ([facility]) Take 1 tablet by mouth Daily [...] MG Oral Tablet 03/05/2020 Provider: Miguel Holley CUSTOMS EXAMINER Completed/Discontinued Medications Medication Drug Class(es) Dates Sig [...] Test Name Value Interpretation Reference Range Facility No Panel InformationOrdered By: Radiologist Radiology on 01-26-2025 [facility] Work Phone: No Panel Informationon 01-26 Radiology Study observation (narrative) [facility] OB BPP W NON-STRESS on 01-26-2025 [place] [address] Ultrasound Report Signed Patient: ESTEFANIA CEDEÑO MR#: [id number] : 1995 Acct:[id number] Age/Sex: 29 / F ADM Date: 01/26/25 Loc: US Attending Dr: Aditya Cervantes D.O. Ordering Physician: Aditya Cervantes D.O. Date of Service: 01/26/25 Procedure(s): US OB BPP w non-stress Accession Number(s): [id number] cc: Aditya Cervantes D.O.; Physician,Non-Staff M.Aminata The [place] [id number] Patient Name: ESTEFANIA CEDEÑO MRN: [facility]:[id number] date: 1995 Sex: F Assigned Patient Location: [facility] Current Patient Location: Accession/Order Number: [id number] Exam Date: 01/26/2025 09:08 Report Date: 01/26/2025 11:00 At the request of: ADITYA CERVANTES DO [...] Bright M.D. 01/26/2025 11:00 AM Dictation Location: [place] [address] Electronically authenticated by: [id number] Y Date: 01/26/2025 11:00 Dictated By: Lindsey Bright M.D. Signed By: 01/26/25 1103 DD/ 1100 TD/TT: Marine Equipment Engineer: [facility] Radiology, Radiologi MD raymond - 01/26/2025 [place] [address] Ultrasound Report Signed Patient: ESTEFANIA CEDEÑO MR#: [id number] : 1995 Acct:[id number] Age/Sex: 29 / F ADM Date: 01/26/25 Loc: US Attending Dr: Aditya Cervantes D.O. Ordering Physician: Aditya Cervantes D.O. Date of Service: 01/26/25 Procedure(s): US OB BPP w non-stress Accession Number(s): [id number] cc: Aditya Cervantes D.O.; Physician,Non-Staff Roberto The [address] [address] Patient Name: ESTEFANIA CEDEÑO MRN: [facility]:[id number] date: 1995 Sex: F Assigned Patient Location: [facility] Current Patient Location: Accession/Order Number: [id number] Exam Date: 01/26/2025 09:08 Report Date: 01/26/2025 11:00 At the request of: ADITYA CERVANTES DO [...] Bright M.D. 01/26/2025 11:00 AM Dictation Location: [place] [address] Electronically authenticated by: [id number] Y Date: 01/26/2025 11:00 Dictated By: Lindsey Bright M.D. Signed By: 01/26/25 1103 DD/ 1100 TD/TT: Marine Equipment Engineer: DENISE [facility] OB GROWTHon 01-26-2025 [place] [address] Ultrasound Report Signed Patient: ESTEFANIA CEDEÑO MR#: [id number] : 1995 Acct:[id number] Age/Sex: 29 / F ADM Date: 01/26/25 Loc: US Attending Dr: Aditya Cervantes D.O. Ordering Physician: Aditya Cervantes D.O. Date of Service: 01/26/25 Procedure(s): US OB growth Accession Number(s): [id number] cc: Aditya Cervantes D.O.; Physician,Non-Staff Roberto [place] [address] Patient Name: ESTEFANIA CEDEÑO MRN: [facility]:[id number] date: 1995 Sex: F Assigned Patient Location: Current Patient Location: Accession/Order Number: [id number] Exam Date: 01/26/2025 09:08 Report Date: 01/26/2025 11:00 At the request of: ADITYA CERVANTES DO [...] Bright M.D. 01/26/2025 11:00 AM Dictation Location: [place] Electronically authenticated by: [id number] Y Date: 01/26/2025 11:00 Dictated By: Lindsey Bright M.D. Signed By: 01/26/25 1103 DD/ 1100 TD/TT: Marine Equipment Engineer: [facility] Radiology, Radiologi MD raymond - 01/26/2025 [place] [address] Ultrasound Report Signed Patient: ESTEFANIA CEDEÑO MR#: [id number] : 1995 Acct:[id number] Age/Sex: 29 / F ADM Date: 01/26/25 Loc: US Attending Dr: Aditya Cervantes D.O. Ordering Physician: Aditya Cervantes D.O. Date of Service: 01/26/25 Procedure(s): US OB growth Accession Number(s): [id number] cc: Aditya Cervanets D.O.; Physician,Non-Staff Roberto The [address] [address] Patient Name: ESTEFANIA CEDEÑO MRN: [facility]:[id number] date: 1995 Sex: F Assigned Patient Location: US Current Patient Location: Accession/Order Number: [id number] Exam Date: 01/26/2025 09:08 Report Date: 01/26/2025 11:00 At the request of: ADITYA CERVANTES DO [...] Bright M.D. 01/26/2025 11:00 AM Dictation Location: [place] Electronically authenticated by: [id number] Y Date: 01/26/2025 11:00 Dictated By: Lindsey Bright M.D. Signed By: 01/26/25 1103 DD/ 99 TD/TT: Marine Equipment Engineer: [facility] US OB BPP W NON-STRESS on 01-19-2025 [place] [address] Ultrasound Report Signed Patient: ESTEFANIA CEDEÑO MR#: [id number] : 1995 Acct:[id number] Age/Sex: 29 / F ADM Date: 01/19/25 Loc: US Attending Dr: Aditya Cervantes D.O. Ordering Physician: Aditya Cervantes D.O. Date of Service: 01/19/25 Procedure(s): US OB BPP w non-stress Accession Number(s): [id number] cc: Aditya Cervantes D.O.; Physician,Non-Staff Roberto The [place] [id number] Patient Name: ESTEFANIA CEDEÑO MRN: [facility]:[id number] date: 1995 Sex: F Assigned Patient Location: [facility] Current Patient Location: Accession/Order Number: [id number] Exam Date: 01/19/2025 09:10 Report Date: 01/19/2025 [...] Saez M.D. 01/19/2025 2:26 PM Dictation Location: [place] [address] Electronically authenticated by: [id number] Y Date: 01/19/2025 14:26 Dictated By: Carroll Saez D.O. Signed By: 01/19/25 1429 DD/ 1426 TD/TT: Marine Equipment Engineer: [facility] RadiologyIsma MD - 01/19/[address] [address] Ultrasound Report Signed Patient: ESTEFANIA CEDEÑO MR#: [id number] : 1995 Acct:[id number] Age/Sex: 29 / F ADM Date: 01/19/25 Loc: US Attending Dr: Aditya Cervantes D.O. Ordering Physician: Aditya Cervantes D.O. Date of Service: 01/19/25 Procedure(s): US OB BPP w non-stress Accession Number(s): [id number] cc: Adiyta Cervantes D.O.; Physician,Non-Staff Roberto [place] [address] Patient Name: ESTEFANIA CEDEÑO MRN: [facility]:[id number] date: 1995 Sex: F Assigned Patient Location: [facility] Current Patient Location: Accession/Order Number: [id number] Exam Date: 01/19/2025 09:10 Report Date: 01/19/2025 [...] Saez M.D. 01/19/2025 2:26 PM Dictation Location: [place] [address] Electronically authenticated by: [id number] Y Date: 01/19/2025 14:26 Dictated By: Carroll Saez D.O. Signed By: 01/19/25 1429 DD/ 1426 TD/TT: Marine Equipment Engineer: [facility] Radiology Study observation (narrative) [facility] US OB BPP W NON-STRESS Ordered By: Radiologist Radiology on 01-19-2025 [facility] Work Phone: Urinalysis macro (dipstick) panel (U)on 01-09-2025 Bilirubin, UA Negative Negative - 4(70) +++ mg/dL [facility] Blood, UA Negative Negative - 50 Chuy/mcL [facility] Clarity, UA Clear [facility] Color, UA Yellow [facility] Glucose, UA Negative Negative - 2000(110) ++++ mg/dL [facility] Interpretation and review of laboratory results Normal [facility] Ketones, UA Negative Negative - 160(16) ++++ mg/dL [facility] Leukocytes, UA Negative Negative - 500+++ Sadi/mcL [facility] Nitrite, UA Negative Negative - Positive [facility] pH, UA 6.5 5 - 9 [facility] Protein, UA Negative Negative - 1999(20) ++++ mg/dL [facility] Spec Grav, UA 1.015 1 - 1.03 [facility] Urobilinogen, UA 1.0 0.2 - 12 mg/dL [facility] US OB FOLLOW UP TRANSABDOMIN AL [...] II, MD, PHD at 28-Dec-2024 08:33:38 AM [facility] Normal Not Available Comment on above: Order Comment: US OB SCAN FOR GROWTH Estimated Date of Delivery: 03/06/25 Gestational Age as of 12/13/2024: 28w1d Urinalysis macro (dipstick) panel (U)on 12-27-2024 Bilirubin, UA Negative Negative - 4(70) +++ mg/dL [facility] Blood, UA Negative Negative - 50 Chuy/mcL [facility] Clarity, UA Clear [facility] Color, UA Yellow [facility] Glucose, UA Positive Negative - 1999(110) ++++ mg/dL [facility] Interpretation and review of laboratory results Abnormal [facility] Ketones, UA Negative Negative - 160(16) ++++ mg/dL [facility] Leukocytes, UA Negative Negative - 500+++ Sadi/mcL [facility] Nitrite, UA Negative Negative - Positive [facility] pH, UA 6 5 - 9 [facility] Protein, UA Positive Negative - 1999(20) ++++ mg/dL [facility] Spec Grav, UA 1.02 1 - 1.03 [facility] Urobilinogen, UA 1.0 0.2 - 12 mg/dL [facility] Urinalysis macro (dipstick) panel (U)on 12-13-2024 Bilirubin, UA Negative Negative - 4(70) +++ mg/dL [facility] Blood, UA Negative Negative - 50 Chuy/mcL [facility] Clarity, UA Clear [facility] Color, UA Yellow [facility] Glucose, UA Negative Negative - 1999(110) ++++ mg/dL [facility] Interpretation and review of laboratory results Normal [facility] Ketones, UA Negative Negative - 160(16) ++++ mg/dL [facility] Leukocytes, UA Negative Negative - 500+++ Sadi/mcL [facility] Nitrite, UA Negative Negative - Positive [facility] pH, UA 6 5 - 9 [facility] Protein, UA Negative Negative - 1999(20) ++++ mg/dL [facility] Spec Grav, UA 1.015 1 - 1.03 [facility] Urobilinogen, UA 1.0 0.2 - 12 mg/dL [facility] GLUCOSE TOLERANCE 3 HOURon 0 12-12-2024 GLUCOSE TOLERANCE 3 HOUR High mg/dL [facility] Comment on above: GLU FAST 85 (<95) Co l: 12/12/24 1118 GLU 1HR 198H (<180) Col: 12/12/24 1220 GLU 2HR 171H (<155) Col: 12/12/24 1320 GLU 3HR 74 (<140) Col: 12/12/24 1422 Interpretation and review of laboratory results Abnormal [facility] ECG 12-LEADon 12-07-2024 [place] [address] Electrocardiograph Report Signed Patient: ESTEFANIA CEDEÑO MR#: [id number] : 1995 Acct:[id number] Age/Sex: 29 / F ADM Date: 12/05/24 Loc: CR Attending Dr: Latasha Padgett Ordering Physician: Latasha Padgett Date of Service: 12/05/24 Procedure(s): ECG 12 lead Accession Number(s): [id number] cc: [facility] Test Date: 2024-12-05 Pat Name: ESTEFANIA CEDEÑO Department: Room: - Gender: Female Cylinder Batcher: : 1995 Requested By: 0923 Order Number: [id number] Reading MD: ANTON THORPE Measurements Intervals [place] Rate: 68 P: 55 VA: 116 QRS: 72 QRSD: 94 T: 14 QT: 411 QTc: 439 Interpretive Statements SINUS RHYTHM WITH SHORT VA INTERVAL NONSPECIFIC T-WAVE ABNORMALITY No previous ECG available for comparison Electronically Signed On 12-07-2024 9:00:49 EDT by ANTON THORPE Dictated By: Anton Thorpe M.D. Signed By: 12/07/24 0912/07/24 09 DD/ 09 TD/TT: Marine Equipment Engineer: [facility] Radiology, Radiologestefania andrade MD - 12/07/2024 The [place] [id number] Electrocardiograph Report Signed Patient: ESTEFANIA CEDEÑO MR#: [id number] : 1995 Acct:[id number] Age/Sex: 29 / F ADM Date: 12/05/24 Loc: CR Attending Dr: Latasha Padgett Ordering Physician: Latasha Padgett Date of Service: 12/05/24 Procedure(s): ECG 12 lead Accession Number(s): [id number] cc: [facility] Test Date: 2024-12-05 Pat Name: ESTEFANIA CEDEÑO Department: Room: - Gender: Female Cylinder Batcher: : 1995 Requested By: 0923 Order Number: [id number] Reading MD: ANTON THORPE Measurements Intervals [place] Rate: 68 P: 55 VA: 116 QRS: 72 QRSD: 94 T: 14 QT: 411 QTc: 439 Interpretive Statements SINUS RHYTHM WITH SHORT VA INTERVAL NONSPECIFIC T-WAVE ABNORMALITY No previous ECG available for comparison Electronically Signed On 12-07-2024 9:00:49 EDT by ANTON THORPE Dictated By: Anton Thorpe M.D. Signed By: 12/07/2489912/07/24899 DD/ 6 TD/TT: Marine Equipment Engineer: [facility] ECG 12-LEADOrdered By: Radio logist Radiology on 12-07-2024 [facility] Work Phone: ALL CBC WITH AUTO DIFFon BASOPHILS ABSOLUTE AUTO 0 [facility] Basophils/100 WBC (Bld) 0.2 % 0.2 - 2.0 % [facility] Eosinophils/100 WBC (Bld) 0.6 % Low 0.9 - 7.0 % [facility] Erythrocyte distribution width (RBC) [Ratio] 13.7 % 11.0 - 15.0 % [facility] Hematocrit (Bld) [Volume fraction] 34.3 % Low 36.0 - 48.0 % [facility] Hemoglobin (Bld) [Mass/Vol] 11.5 g/dL Low 12.0 - 16.0 g/dL [facility] IMMATURE GRANULOCYTES ABS AUTO 0.08 High [facility] Immature granulocytes/100 WBC (Bld) 0.7 % High 0.0 - 0.5 % [facility] Interpretation and review of laboratory results Abnormal [facility] LYMPHOCYTES ABSOLUTE AUTO 2.1 [facility] Lymphocytes/100 WBC (Bld) 18.9 % Low 20.5 - 60.0 % [facility] MCH (RBC) [Entitic mass] 27.8 pg 26.7 - 34.0 pg [facility] MCHC (RBC) [Mass/Vol] 33.5 g/dL 29.9 - 35.2 g/dL [facility] MCV (RBC) [Entitic vol] 82.9 fL 81.0 - 99.0 fL [facility] MONOCYTES ABSOLUTE AUTO 0.5 [facility] Monocytes/100 WBC (Bld) 4 % 1.7 - 12.0 % [facility] NEUTROPHILS ABSOLUTE AUTO 8.6 High [facility] Neutrophils/100 WBC (Bld) 75.6 % High 43.0 - 75.0 % [facility] Platelet mean volume (Bld) [Entitic vol] 11.1 fL 9.5 - 13.5 fL [facility] EO # 0.1 [facility] PLT 140 Low [facility] RBC 4.14 Low [facility] WBC 11.3 High [facility] ECG 12-LEADon 12-05-2024 Radiology Study observation (narrative) [facility] Urinalysis macro (dipstick) panel (U)on 11-22-2024 Bilirubin, UA Negative Negative - 4(70) +++ mg/dL [facility] Blood, UA Negative Negative - 50 Chuy/mcL [facility] Clarity, UA Clear [facility] Color, UA Yellow [facility] Glucose, UA Negative Negative - 1999(110) ++++ mg/dL [facility] Interpretation and review of laboratory results Abnormal [facility] Ketones, UA Positive Negative - 160(16) ++++ mg/dL [facility] Comment on above: trace Leukocytes, UA Negative Negative - 500+++ Sadi/mcL [facility] Nitrite, UA Negative Negative - Positive [facility] pH, UA 6.5 5 - 9 [facility] Protein, UA Negative Negative - 1999(20) ++++ mg/dL [facility] Spec Grav, UA 1.025 1 - 1.03 [facility] Urobilinogen, UA 0.2 0.2 - 12 mg/dL [facility] MHPT AFP, MATERNALon 10-30- 025 MHPT DETERMINED BY Ultrasound [facility] MHPT DUE DATE SEE NOTE [facility] Comment on above: Results for Estimate d Due Date: 03 06 25 MHPT FAMILY HISTORY No [facility] MHPT GESTAT AGE (EXACT) 20 wks, 0 days [facility] MHPT INS REQ MATERN DIAB No [facility] MHPT INTERPRETATION Screen Neg [facility] Comment on above: (NOTE) INTERPRETATION: SCREEN NEGATIVE for open spina bifida Neural Tube Defects (NTD) Negative Pre-Test Post-Test Cutoff Neural Tube Defects Risks 1:1030 < 1:61862 1:250 Comments: The risk of an open neural tube defect is less than the screening cut-off. This test was developed and its performance characteristics determined by [facility]. It has not been cleared or approved by the [place] Food and Drug Administration. This test was performed in a CLIA certified laboratory and is intended for clinical purposes. MHPT [age]NAL [age] AT DEL [age] [facility] MAT[facility]NAL RACE Nonblack [facility]ERNAL WE[facility]. [facility] AFP 0.82 [facility] MHPT NUMBER OF FETUSES Sanchez NO [facility] MHPT PATIENT'S AFP 36 ng/mL [facility] SMOKING [facility] See Note [facility] Comment on above: (NOTE) Initial sample Performed By: [facility] [address] [place] [address] [employer] Service Representative: Pranay Rousseau MD, PhD [place] Number: [id number] Original Ordering Provider: [facility] Urinalysis macro (dipstick) panel (U)on 10-25-2024 Bilirubin, UA Negative Negative - 4(70) +++ mg/dL [facility] Blood, UA Negative Negative - 50 Chuy/mcL [facility] Clarity, UA Clear [facility] Color, UA Yellow [facility] Glucose, UA Negative Negative - 2000(110) ++++ mg/dL [facility] Interpretation and review of laboratory results Normal [facility] Ketones, UA Negative Negative - 160(16) ++++ mg/dL [facility] Leukocytes, UA Negative Negative - 500+++ Sadi/mcL [facility] Nitrite, UA Negative Negative - Positive [facility] pH, UA 5.5 5 - 9 [facility] Protein, UA Negative Negative - 2000(20) ++++ mg/dL [facility] Spec Grav, UA 1.03 1 - 1.03 [facility] Urobilinogen, UA 0.2 0.2 - 12 mg/dL [facility] AFP, Maternalon 10-20-2024 Determined by Ultrasound Normal [facility] Comment on above: Performed By: #### A AFPM #### [employer] [address] [place] [address] Statistical Typist: Dallas Xiong MD Due Date SEE NOTE [facility] Comment on above: Result Comment: Resu lts for Estimated Due Date: 03 06 25 Performed By: #### A AFPM #### [facility] [address] [place] [address] Statistical Typist: [place] Xiong MD Family History No [facility] Comment on above: Performed By: #### A AFPM #### [facility] [address] [place] [address] Statistical Typist: Dallas Xiong MD Gestat Age (exact) 20 wks, 0 days Normal [facility] Comment on above: Performed By: #### A AFPM #### [facility] [address], [place] [address] Statistical Typist: Dallas Xiong MD Ins Req Matern Diab No [facility] Comment on above: Performed By: #### A AFPM #### [facility] [address] [place] [address] Statistical Typist: Dallas Xiong MD Interpretation Screen Neg Normal [facility] Comment on above: Result Comment: (NOT E) INTERPRETATION: SCREEN NEGATIVE for open spina bifida Neural Tube Defects (NTD) Negative Pre-Test Post-Test Cutoff Neural Tube Defects Risks 1:1030 < 1:43389 1:250 Comments: The risk of an open neural tube defect is less than the screening cut-off. This test was developed and its performance characteristics determined by [employer]. It has not been cleared or approved by the US Food and Drug Administration. This test was performed in a CLIA certified laboratory and is intended for clinical purposes. Performed By: #### A AFPM #### [facility] [address] [place] [address] Statistical Typist: Dallas Xiong MD [age] [facility] Comment on above: Performed By: #### A AFPM #### [facility] [address] [place] [address] Statistical Typist: Dallas Xiong MD Maternal Race Nonblack [facility] Comment on above: Performed By: #### A AFPM #### [facility] [address] [place] [address] Statistical Typist: Dallas Xiong MD Maternal Weight 234.0 lbs. [facility] Comment on above: Performed By: #### A AFPM #### [facility] [address] [place] [address] Statistical Typist: Dallas Xiong MD MoM for AFP 0.82 [facility] Comment on above: Performed By: #### A AFPM #### [facility] [address] [place] [address] Statistical Typist: Dallas Xiong MD Number of Fetuses [place] [facility] Comment on above: Performed By: #### A AFPM #### [facility] [address] [place] [address] Statistical Typist: Dallas Xiong MD Patient's AFP 36 ng/mL [facility] Comment on above: Performed By: #### A AFPM #### [facility] [address] [place] [address] Statistical Typist: Dallas Xiong MD Smoking Unknown [facility] Comment on above: Performed By: #### A AFPM #### [facility] [address] [place] [address] Statistical Typist: Dallas Xiong MD Specimen See Note [facility] Comment on above: Result Comment: (NOT E) Initial sample Performed By: [facility] [address] [place] [address] Manufacturers Service Representative: Pranay Rousseau MD, PhD CLIA Number: [id number] Performed By: #### A AFPM #### [facility] [address] [place] [address] Statistical Typist: Dallas Xiong MD IGP,APTIMA HPV,AGE GDLNon AGE GDLN ACOG TESTING Note . [facility] Comment on above: TESTS RESULT FLAG [facility] REF RANGE LAB Clinician Provided Cytology Information Other.............. No. of containers..01 ThinPrep Vial Age Algo ACOG Geetha... FLAG LEGEND: L-Low Normal,H-High Normal,LL-Alert Low,HH-Alert High <-Panic Low,>-Panic High,A-Abnormal,AA-Critical Abnormal Performed at: 01 [address] [address] Lynda Almaguer MD, IGP, RFX APTIMA HPV ASCU Note . [facility] Comment on above: TESTS RESULT FLAG [facility] REF RANGE LAB DIAGNOSIS: 02 NEGATIVE FOR INTRAEPITHELIAL LESION OR MALIGNANCY. FUNGAL ORGANISMS MORPHOLOGICALLY CONSISTENT WITH MARTHA SPECIES ARE PRESENT. CELLULAR CHANGES ASSOCIATED WITH INFLAMMATION ARE PRESENT. Specimen adequacy: 02 Satisfactory for evaluation. Endocervical and/or squamous metaplastic cells (endocervical component) are present. Performed by: 02 Argelia Correia Multi Craft Maintenance Technician . 02 Note: Note 02 The Pap [...] <-Panic Low,>-Panic High,A-Abnormal,AA-Critical Abnormal Performed at: [address] [address] Lynda Almaguer MD, Performed at: =[facility] [address] [id number] Statistical Typist: Lynda Almaguer MD, Phone: [phone] Performed at: [address] [id number] Statistical Typist: Lynda Almaguer MD, Phone: [phone] BRUSH-SPATULA BRUSH-ALONE 2 [facility] US OB 14+ WEEKS ANATOMY SCAN on [...] II, MD, PHD at 25-Oct-2024 11:18:35 PM [employer] Normal Not Available Comment on above: Order [...] UA Negative Negative - 1999(110) ++++ mg/dL [facility] Interpretation and review of laboratory results Normal [facility] Ketones, UA Positive Negative - 160(16) ++++ mg/dL [facility] Leukocytes, UA Negative Negative - 500+++ Sadi/mcL [facility] Nitrite, UA Negative Negative - Positive [facility] pH, UA 7 5 - 9 [facility] Protein, UA Negative Negative - 1999(20) ++++ mg/dL [facility] Spec Grav, UA 1.02 1 - 1.03 [facility] Urobilinogen, UA 0.2 0.2 - 12 mg/dL [facility] Urinalysis macro (dipstick) panel (U)on 08-29-2024 Bilirubin, UA Negative Negative - 4(70) +++ mg/dL [facility] Blood, UA Positive Negative - 50 Chuy/mcL [facility] Comment on above: trace-intact Clarity, UA Clear [facility] Color, UA Yellow [facility] Glucose, UA Negative Negative - 1999(110) ++++ mg/dL [facility] Interpretation and review of laboratory results Abnormal [facility] Ketones, UA Negative Negative - 160(16) ++++ mg/dL [facility] Leukocytes, UA Negative Negative - 500+++ Sadi/mcL [facility] Nitrite, UA Negative Negative - Positive [facility] pH, UA 7 5 - 9 [facility] Protein, UA Negative Negative - 1999(20) ++++ mg/dL [facility] Spec Grav, UA 1.025 1 - 1.03 [facility] Urobilinogen, UA 0.2 0.2 - 12 mg/dL [facility] US OB TRANSVAGINALon 025 US OB [...] II, MD, PHD at 05-Aug-2024 09:13:53 AM [facility] [email or web address] Normal Not Available Comment on above: Order Comment: US OB TRANSVAGINAL No LMP recorded. TB PREG QUANT HCGon 025 HCG QUANTITATIVE 22098 mIU/mL [facility] Comment on above: 5-50 0.2-1 WEEK 50-500 1-2 WEEKS 100-5,000 2-3 WEEKS 500-10,000 3-4 WEEKS 1,000-50,000 4-5 WEEKS 10,000-100,000 5-6 WEEKS 15,000-200,000 6-8 WEEKS 10,000-100,000 2[facility] PREG QUANT HCGon 025 HCG QUANTITATIVE [address] mIU/mL [facility] Comment on above: 5-50 0.2-1 WEEK 50-500 1-2 WEEKS 100-5,000 2-3 WEEKS 500-10,000 3-4 WEEKS 1,000-50,000 4-5 WEEKS 10,000-100,000 5-6 WEEKS 15,000-200,000 6-8 WEEKS 10,000-100,000 2-[facility] (dipstick) panel (U)on 07-15-2023 Bilirubin, UA Negative Negative - 4(70) +++ mg/dL [facility] Blood, UA Negative Negative - 50 Chuy/mcL [facility] Clarity, UA Clear [facility] Color, UA Yellow [facility] Glucose, UA Negative Negative - 1999(110) ++++ mg/dL [facility] Interpretation and review of laboratory results Normal [facility] Ketones, UA Positive Negative - 160(16) ++++ mg/dL [facility] Leukocytes, UA Negative Negative - 500+++ Sadi/mcL [facility] Nitrite, UA Negative Negative - Positive [facility] pH, UA 6.5 5 - 9 [facility] Protein, UA Negative Negative - 1999(20) ++++ mg/dL [facility] Spec Grav, UA 1.025 1 - 1.03 [facility] Urobilinogen, UA 0.2 0.2 - 12 mg/dL [facility] C-Reactive Proteinon 022 CRP [Mass/Vol] mg/L 0 - 5 mg/L [facility] CBC with Auto Differentialon 12-16-2021 Absolute Eos # 0.09 [facility] Absolute Immature Granulocyte 0.04 [facility] Absolute Lymph # 2.98 [facility] URS [facility] Absolute Newberry # 0.51 [facility] Basophils (Bld) [#/Vol] 0.04 10*3/uL [facility] Basophils/100 WBC (Bld) 0 % 0 - 2 % [facility] Eosinophils/100 WBC (Bld) 1 % 1 - 4 % [facility] Hematocrit (Bld) [Volume fraction] 39.6 % 36.3 - 47.1 % [facility] Hemoglobin (Bld) [Mass/Vol] 13.1 g/dL 11.9 - 15.1 g/dL [facility] Immature granulocytes/100 WBC (Bld) 0 % 0 [facility] Lymphocytes/100 WBC (Bld) 33 % 24 - 43 % [facility] MCH (RBC) [Entitic mass] 28.2 pg 25.2 - 33.5 pg [facility] MCHC (RBC) [Mass/Vol] 33.1 g/dL 28.4 - 34.8 g/dL [facility] MCV (RBC) [Entitic vol] 85.3 fL 82.6 - 102.9 fL [facility] Monocytes/100 WBC (Bld) 6 % 3 - 12 % [facility] NRBC Automated 0.0 0.0 per 100 WBC [facility] Platelet distribution width (Bld) [Ratio] 12.0 % 11.8 - 14.4 % [facility] Platelet mean volume (Bld) [Entitic vol] 11.1 fL 8.1 - 13.5 fL [facility] Platelets (Bld) [#/Vol] 214 10*3/uL [facility] RBC (Bld) [#/Vol] 4.64 10*6/uL 3.95 - 5.1 1 m/uL [facility] Segmented neutrophils/100 WBC (Bld) 60 % 36 - 65 % [facility] Segs Absolute 5.49 [facility] WBC (Bld) [#/Vol] 9.2 10*3/uL [facility] Rheumatoid Factoron 12-17-19 22 Rheumatoid Factor <10 [facility] Sedimentation Rateon 022 Sed Rate [address] [facility] Uric Acidon 12-16-2021 Urate [Mass/Vol] 4.2 mg/dL 2.4 - 5.7 mg/dL [facility] Basic Metabolic Panel w/ Ref yossi to MGOrdered By: Donny Hatfield on 10-15-2020 Anion gap [Moles/Vol] 13 mmol/L 9 - 17 mmol/L [facility] [employer] Work Phone: Calcium [Mass/Vol] 9.6 mg/dL 8.6 - 10. 4 mg/dL [employer] Work Phone: Chloride [Moles/Vol] 105 mmol/L 98 - 10 7 mmol/L [employer] Work Phone: CO2 [Moles/Vol] 22 mmol/L 20 - 31 mmol/L [employer] Work Phone: Creatinine [Mass/Vol] 0.62 mg/dL 0.50 - 0.90 mg/dL [employer] Work Phone: GFR >60 >60 mL/min [employer] Work Phone: GFR Non- >60 >60 mL/min [employer] Phone: Glucose [Mass/Vol] 110 mg/dL High 70 - 99 mg/dL [employer] Phone: Interpretation and review of laboratory results Abnormal [employer] Work Phone: Potassium [Moles/Vol] 3.5 mmol/L Low 3.7 - 5.3 mmol/L [facility] Phone: Sodium [Moles/Vol] 140 mmol/L 135 - 144 mmol/L [facility] Phone: Urea nitrogen (BldV) [Mass/Vol] 12 mg/dL 6 - 20 mg/dL [facility] Work Phone: Urea nitrogen/Creatinine (Bld) [Mass ratio] 19 [employer] Work Phone: [employer] Phone: CBC Auto DifferentialOrdered By: Donny Hatfield on 10-15-2020 Absolute Eos # 0.19 [employer] [facility] Work Phone: Absolute Immature Granulocyte 0.06 [facility] Work Phone: Absolute Lymph # 2.50 [facility] Work Phone: Absolute Newberry # 0.75 [facility] Work Phone: Basophils (Bld) [#/Vol] 0.04 10*3/uL [employer] Work Phone: Basophils/100 WBC (Bld) 0 % 0 - 2 % [employer] Work Phone: Differential Type NOT REPORTED [employer] Phone: Eosinophils/100 WBC (Bld) 1 % 1 - 4 % [employer] Work Phone: Hematocrit (Bld) [Volume fraction] 42.1 % 36.3 - 47.1 % [employer] Phone: Hemoglobin.gastrointes tinal spec 1 Ql (Stl) 14.0 g/dL 11.9 - 15.1 g/dL [employer] Phone: Immature granulocytes/100 WBC (Bld) 0 % 0 [employer] Phone: Interpretation and review of laboratory results Abnormal [employer] Phone: Lymphocytes/100 WBC (Bld) 14 % Low 24 - 43 % [employer] Phone: MCH (RBC) [Entitic mass] 28.1 pg 25.2 - 33.5 pg [employer] Phone: MCHC (RBC) [Mass/Vol] 33.3 g/dL 28.4 - 34.8 g/dL [employer] Phone: MCV (RBC) [Entitic vol] 84.4 fL 82.6 - 102.9 fL [employer] Phone: Monocytes/100 WBC (Bld) 4 % 3 - 12 % [employer] Phone: NRBC Automated 0.0 0.0 per 100 WBC [employer] Phone: Platelet distribution width (Bld) [Ratio] 11.9 % 11.8 - 14.4 % [employer] Phone: Platelet Estimate NOT REPORTED [employer] Phone: Platelet mean volume (Bld) [Entitic vol] 10.7 fL 8.1 - 13.5 fL [employer] Phone: Platelets (Bld) [#/Vol] 220 10*3/uL [employer] Phone: RBC (Bld) [#/Vol] 4.99 10*6/uL 3.95 - 5.1 1 m/uL [employer] Phone: RBC (Bld) [#/Vol] NOT REPORTED [employer] Phone: Segmented neutrophils/100 WBC (Bld) 81 % High 36 - 65 % [employer] Phone: Segs Absolute 14.20 [employer] Work Phone: WBC (Bld) [#/Vol] 17.7 10*3/uL High [employer] Work Phone: WBC (Bld) [#/Vol] NOT REPORTED [employer] Phone: [employer] Phone: CT ABDOMEN PELVIS W IV CONTR AST Additional Contrast? NoneOrdered By: Donny Hatfield on 10-15-2020 1. Marked hepatic steatosis. 2. Hepatomegaly. 3. Mild colonic diverticulosis without evidence of diverticulitis. [employer] Phone: EXAMINATION: CT OF T ABDOMEN AND PELVIS WITH CONTRAST 10/15/2020 1:21 am TECHNIQUE: CT of the abdomen and pelvis was performed with the administration of intravenous contrast. Multiplanar reformatted images are provided for review. Dose modulation, iterative reconstruction, and/or weight based adjustment of the mA/kV was utilized to reduce the radiation dose to as low as reasonably achievable. COMPARISON: None. HISTORY: ORDERING SYSTEM PROVIDED HISTORY: [facility] TECHNOLOGIST PROVIDED HISTORY: [facility] Decision Support Exception - unselect [...] subcutaneous soft tissues are unremarkable in appearance. [employer] Work Phone: Jean Marie, Mhpn Incoming Radiant Results From [employer] - 10/15/2020 1:48 AM EDT EXAMINATION: CT [...] COMPARISON: None. HISTORY: ORDERING SYSTEM PROVIDED HISTORY: [facility] TECHNOLOGIST PROVIDED HISTORY: [facility] Decision Support Exception - unselect [...] Mild colonic diverticulosis without evidence of diverticulitis. [employer] Phone: [employer] Phone: HCG Qualitative, SerumOrdere d By: Donny Hatfield on 10-15-2020 hCG Qual Negative NEGATIVE [employer] Phone: Comment on above: Specimens with hCG l evels near the threshold of the test (25 mIU/mL) may give a negative or indeterminate result. In such cases, another test should be performed with a new specimen in 48-72 hours. If early is suspected clinically in this setting, correlation with quantitative serum b-hCG level is suggested. [employer] has confirmed the use of plasma for this test. This has not been cleared or approved by the U.S. Food and Drug Administration. The FDA has determined that such clearance is not necessary. [employer] Phone: Hepatic Function PanelOrdere d By: Donny Hatfield on 10-15-2020 Albumin [Mass/Vol] 4.6 g/dL 3.5 - 5.2 g/dL [employer] Phone: Albumin/Globulin [Mass ratio] 1.6 {ratio} [employer] Phone: ALP (Bld) [Catalytic activity/Vol] 59 U/L 35 - 104 U/L [employer] Phone: ALT [Catalytic activity/Vol] 38 U/L High 5 - 33 U/L [employer] Phone: AST [Catalytic activity/Vol] 24 U/L <32 [employer] Phone: Bilirubin [Mass/Vol] 0.48 mg/dL 0.3 - 1 .2 mg/dL [employer] Phone: Bilirubin, Indirect CANNOT BE CALCULATED 0.00 - 1.00 mg/dL [employer] Phone: Bilirubin.indirect [Mass/Vol] mg/dL <0.31 mg/dL [employer] Phone: Free PSA/Total PSA [Mass fraction] 7.4 g/dL 6.4 - 8.3 g/dL [employer] Phone: Globulin NOT REPORTED 1.5 - 3.8 g/dL [employer] Phone: Interpretation and review of laboratory results Abnormal [employer] Phone: Laboratory - Chemistry and C hemistry - challengeOrdered By: Donny Hatfield on 10-15-2020 GFR/1.73 sq M.predicted MDRD (S/P/Bld) [Vol rate/Area] [employer] Phone: Comment on above: Average GFR for 20-2 9 years old: 116 mL/min/1.73sq m Chronic Kidney Disease: <60 mL/min/1.73sq m Kidney failure: <15 mL/min/1.73sq m eGFR calculated using average adult body mass. Additional eGFR calculator available at: http://www.[employer]/multiple_crcl_2011.htm Stage 1: Some kidney damage normal GFR Stage 2: Mild kidney damage GFR 60-89 Stage 3: Moderate kidney damage GFR 30-59 Stage 4: Severe kidney damage GFR 15-29 Stage 5: Severe kidney damage GFR <15 ESRD - chronic treatment by dialysis or transplant Lactic Acid, PlasmaOrdered B y: Donny Hatfield on 10-15-2020 Lactate [Moles/Vol] 1.1 mmol/L 0.5 - 2. 2 mmol/L [employer] Phone: Lactic Acid, Whole Blood NOT REPORTED 0.7 - 2.1 mmol/L [employer] Phone: [employer] Phone: LipaseOrdered By: Cuco on 10-15-2020 Lipase [Catalytic activity/Vol] 27 U/L 13 - 60 U/L [employer] Phone: MagnesiumOrdered By: Donny Hatfield on 10-15-2020 Magnesium [Mass/Vol] 1.8 mg/dL 1.6 - 2 .6 mg/dL [facility] [employer] Work Phone: [facility] Work Phone: Microscopic UrinalysisOrdere d By: Donny Hatfield on 10-15-2020 - [facility] [employer] Work Phone: Amorphous, UA NOT REPORTED None [employer] [facility] Work Phone: Bacteria, UA 1+ Abnormal None [facility] [employer] Work Phone: Casts UA NOT REPORTED /LPF [facility] Work Phone: Crystals, UA NOT REPORTED None /HPF [facility] Work Phone: Epithelial Cells UA 2 TO 5 [facility] Work Phone: Interpretation and review of laboratory results Abnormal [facility] [employer] Work Phone: Mucus, UA 1+ Abnormal None [facility] [employer] Work Phone: Other Observations UA NOT REPORTED NOT REQ. [facility] [employer] Work Phone: RBC, UA 2 TO 5 [facility] Work Phone: Renal Epithelial, UA NOT REPORTED 0 /HPF [facility] Work Phone: Trichomonas, UA NOT REPORTED None [facility] [employer] Work Phone: WBC, UA 0 TO 2 [facility] [employer] Work Phone: Yeast, UA NOT REPORTED None [facility] [employer] Work Phone: [facility] Work Phone: No Panel InformationOrdered By: Donny Hatfield on 10-15-2020 [facility] [employer] Work Phone: Urinalysis Reflex to Culture Ordered By: Donny Hatfield on 10-15-2020 Bilirubin Urine Negative NEGATIVE [facility] Work Phone: Color, UA YELLOW YELLOW [facility] [employer] Work Phone: Glucose, Ur Negative NEGATIVE [facility] [employer] Work Phone: Interpretation and review of laboratory results Abnormal [facility] [employer] Work Phone: Ketones Ql (U) Negative NEGATIVE [facility] Work Phone: Leukocyte esterase Test strip Ql (U) Negative NEGATIVE [facility] [employer] Work Phone: Nitrite, Urine Negative NEGATIVE [facility] Work Phone: pH, UA 5.0 [facility] [employer] Work Phone: Protein, UA Negative NEGATIVE [facility] [employer] Work Phone: Specific [place], UA 1.010 [facility] [employer] Work Phone: Turbidity UA CLEAR CLEAR [facility] [employer] Work Phone: Urinalysis Comments NOT REPORTED [facility] [employer] Work Phone: Urine Hgb 2+ Abnormal NEGATIVE [facility] [employer] Work Phone: Urobilinogen, Urine Normal Normal [facility] [employer] Work Phone: [facility] [employer] Work Phone: Comp Metabolic Profon 2020 (cont.) Normal [facility] Comment on above: Result Comment: Aver age GFR for 20-29 years old: 116 mL/min/1.73sq m Chronic Kidney Disease: <60 mL/min/1.73sq m Kidney failure: <15 mL/min/1.73sq m eGFR calculated using average adult body mass. Additional eGFR calculator available at: http://www.[employer]/multiple_crcl_2011.htm Performed By: #### L IPRF, CDP, CP, TSHX #### [employer] [address] [place] [address] Statistical Typist: Chato Aguirre MD Albumin [Mass/Vol] 4.3 g/dL Normal 3.5-5.2 [facility] Comment on above: Performed By: #### L IPRF, CDP, CP, TSHX #### [address] [address] Statistical Typist: Chato Aguirre MD Albumin/Glob Ratio 1.3 Normal 1.0-2.5 [facility] Comment on above: Performed By: #### L IPRF, CDP, CP, TSHX #### [address] [address] Statistical Typist: Chato Aguirre MD Alkaline Phos 49 U/L Normal 35-104 [facility] Comment on above: Performed By: #### L IPRF, CDP, CP, TSHX #### [address] [address] Statistical Typist: Chato Aguirre MD ALT [Catalytic activity/Vol] 36 U/L High 5-33 [facility] Comment on above: Performed By: #### L IPRF, CDP, CP, TSHX #### [address] [address] Statistical Typist: Chato Aguirre MD Anion gap [Moles/Vol] 11 mmol/L Normal 9-17 [facility] Comment on above: Performed By: #### L IPRF, CDP, CP, TSHX #### [address] [address] Statistical Typist: Chato Aguirre MD AST [Catalytic activity/Vol] 27 U/L Normal <32 [facility] Comment on above: Performed By: #### L IPRF, CDP, CP, TSHX #### [address] [address] Statistical Typist: Chato Aguirre MD Bilirubin [Mass/Vol] 0.34 mg/dL Normal 0.3-1.2 [facility] Comment on above: Performed By: #### L IPRF, CDP, CP, TSHX #### [facility] [address] [place] [address] Statistical Typist: Chato Aguirre MD Calcium [Mass/Vol] 9.5 mg/dL Normal 8.6-10.4 [facility] Comment on above: Performed By: #### L IPRF, CDP, CP, TSHX #### [facility] [employer] [address] [place] [address] Statistical Typist: Chato Aguirre MD Chloride [Moles/Vol] 102 mmol/L Normal 98-107 [facility] Comment on above: Performed By: #### L IPRF, CDP, CP, TSHX #### [facility] [address] [place] [address] Statistical Typist: Chato Aguirre MD CO2 [Moles/Vol] 22 mmol/L Normal 20-31 [facility] Comment on above: Performed By: #### L IPRF, CDP, CP, TSHX #### [facility] [employer] [address] [place] [address] Statistical Typist: Chato Aguirre MD Creatinine [Mass/Vol] 0.46 mg/dL Low 0.50-0.90 [facility] Comment on above: Performed By: #### L IPRF, CDP, CP, TSHX #### [facility] [address] [place] [address] Statistical Typist: Chato Aguirre MD GFR, Amer >60 Normal >60 [facility] Comment on above: Performed By: #### L IPRF, CDP, CP, TSHX #### [facility] [address] [place] [address] Statistical Typist: Chato Aguirre MD GFR,non Amer >60 Normal >60 [facility] Comment on above: Performed By: #### L IPRF, CDP, CP, TSHX #### [employer] [address] [place] [address] Statistical Typist: Chato Aguirre MD Glucose [Mass/Vol] 92 mg/dL Normal 70-99 [facility] Comment on above: Performed By: #### L IPRF, CDP, CP, TSHX #### [facility] [employer] [address] [place] [address] Statistical Typist: Chato Aguirre MD Potassium [Moles/Vol] 4.2 mmol/L Normal 3.7-5.3 [facility] Comment on above: Performed By: #### L IPRF, CDP, CP, TSHX #### [facility] [employer] [address] [place] [address] Statistical Typist: Chato Aguirre MD Protein [Mass/Vol] 7.5 g/dL Normal 6.4-8.3 [facility] Comment on above: Performed By: #### L IPRF, CDP, CP, TSHX #### [facility] [address] [place] [address] Statistical Typist: Chato Aguirre MD Sodium [Moles/Vol] 135 mmol/L Normal 135-144 [facility] Comment on above: Performed By: #### L IPRF, CDP, CP, TSHX #### [facility] [address] [place] [address] Statistical Typist: Chato Aguirre MD Urea nitrogen [Mass/Vol] 11 mg/dL Normal 6-20 [facility] Comment on above: Performed By: #### L IPRF, CDP, CP, TSHX #### [facility] [address] [place] [address] Statistical Typist: Chato Aguirre MD Lipid Prof, Fastingon 2020 Cholesterol [Mass/Vol] 186 mg/dL Normal <200 [facility] Comment on above: Result Comment: Cholesterol Guidelines: <200 Desirable 200-240 Borderline >240 Undesirable Performed By: #### L IPRF, CDP, CP, TSHX #### [facility] [place] [address] Statistical Typist: Chato Aguirre MD Cholesterol in HDL [Mass/Vol] 49 mg/dL Normal >40 [facility] Comment on above: Result Comment: HDL Guidelines: <40 Undesirable 40-59 Borderline >59 Desirable Performed By: #### L IPRF, CDP, CP, TSHX #### [employer] [address] [place] [address] Statistical Typist: Chato Aguirre MD Cholesterol in LDL [Mass/Vol] 102 mg/dL Normal 0-130 [facility] Comment on above: Result Comment: LDL Guidelines: <100 Desirable 100-129 Near to/above Desirable 130-159 Borderline >159 Undesirable Direct (measured) LDL and calculated LDL are not interchangeable tests. Performed By: #### L IPRF, CDP, CP, TSHX #### [facility] [address] [place] [address] Statistical Typist: Chato Aguirre MD Cholesterol.total/Chol esterol in HDL [Mass ratio] 3.8 {ratio} Normal <5 [facility] Comment on above: Performed By: #### L IPRF, CDP, CP, TSHX #### [employer] [address] [place] [address] Statistical Typist: Chato Aguirre MD Triglyceride,Fasting 173 mg/dL High <150 [facility] Comment on above: Result Comment: Triglyceride Guidelines: <150 Desirable 150-199 Borderline 200-499 High >499 Very high Based on AHA Guidelines for fasting triglyceride, February 2012. Performed By: #### L IPRF, CDP, CP, TSHX #### [employer] [address] [place] [address] Statistical Typist: Chato Aguirre MD TSH w/reflex to FT4on 2020 TSH Qn 3.38 m[IU]/L Normal 0.30-5.00 [facility] Comment on above: Performed By: #### L IPRF, CDP, CP, TSHX #### [facility] [address] [id number] Statistical Typist: Chato Aguirre MD CBC Auto DifferentialOrdered By: Miguel Holley on 09-23-2020 Absolute Eos # 0.14 [employer] [facility] Work Phone: Absolute Immature Granulocyte <0.03 [employer] Work Phone: Absolute Lymph # 2.71 [employer] Work Phone: Absolute Newberry # 0.48 [employer] Work Phone: Basophils (Bld) [#/Vol] 0.05 10*3/uL [employer] Work Phone: Basophils/100 WBC (Bld) 1 % 0 - 2 % [employer] Phone: Differential Type NOT REPORTED [employer] Work Phone: Eosinophils/100 WBC (Bld) 2 % 1 - 4 % [employer] Phone: Hematocrit (Bld) [Volume fraction] 42.9 % 36.3 - 47.1 % [employer] Phone: Hemoglobin.gastrointes tinal spec 1 Ql (Stl) 13.5 g/dL 11.9 - 15.1 g/dL [employer] Work Phone: Immature granulocytes/100 WBC (Bld) 0 % 0 [employer] Phone: Lymphocytes/100 WBC (Bld) 30 % 24 - 43 % [employer] Phone: MCH (RBC) [Entitic mass] 27.6 pg 25.2 - 33.5 pg [employer] Phone: MCHC (RBC) [Mass/Vol] 31.5 g/dL 28.4 - 34.8 g/dL [employer] Phone: MCV (RBC) [Entitic vol] 87.6 fL 82.6 - 102.9 fL [employer] Phone: Monocytes/100 WBC (Bld) 5 % 3 - 12 % [employer] Phone: NRBC Automated 0.0 0.0 per 100 WBC [employer] Phone: Platelet distribution width (Bld) [Ratio] 12.4 % 11.8 - 14.4 % [employer] Phone: Platelet Estimate NOT REPORTED [employer] Phone: Platelet mean volume (Bld) [Entitic vol] 11.6 fL 8.1 - 13.5 fL [employer] Phone: Platelets (Bld) [#/Vol] 246 10*3/uL [employer] Phone: RBC (Bld) [#/Vol] 4.90 10*6/uL 3.95 - 5.1 1 m/uL [employer] Phone: RBC (Bld) [#/Vol] NOT REPORTED [employer] Phone: Segmented neutrophils/100 WBC (Bld) 62 % 36 - 65 % [employer] Phone: Segs Absolute 5.79 [employer] Work Phone: WBC (Bld) [#/Vol] 9.2 10*3/uL [employer] Phone: WBC (Bld) [#/Vol] NOT REPORTED [employer] Phone: CBC with Diffon 09-23-2020 Abs. Basophil 0.05 k/uL Normal 0.00-0.20 [facility] Comment on above: Performed By: #### L IPRF, CDP, CP, TSHX #### [employer] [address] [place] [address] Statistical Typist: Chato Aguirre MD Abs.Imm.Granulocyte <0.03 Normal 0.00-0.30 [facility] Comment on above: Performed By: #### L IPRF, CDP, CP, TSHX #### [address] [address] Statistical Typist: Chato Aguirre MD Abs.Neutrophil (Seg) 5.79 k/uL Normal 1.50-8.10 [facility] Comment on above: Performed By: #### L IPRF, CDP, CP, TSHX #### [address] [address] Statistical Typist: Chato Aguirre MD Basophils/100 WBC (Bld) 1 % Normal 0-2 [facility] Comment on above: Performed By: #### L IPRF, CDP, CP, TSHX #### [address] [address] Statistical Typist: Chato Aguirre MD Eosinophils (Bld) [#/Vol] 0.14 10*3/uL Normal 0.00-0.44 [facility] Comment on above: Performed By: #### L IPRF, CDP, CP, TSHX #### [address] [address] Statistical Typist: Chato Aguirre MD Eosinophils/100 WBC (Bld) 2 % Normal 1-4 [facility] Comment on above: Performed By: #### L IPRF, CDP, CP, TSHX #### [facility] [address] [place] [address] Statistical Typist: Chato Aguirre MD Erythrocyte distribution width (RBC) [Ratio] 12.4 % Normal 11.8-14.4 [facility] Comment on above: Performed By: #### L IPRF, CDP, CP, TSHX #### [facility] [address] [place] [address] [phone] Statistical Typist: Chato Aguirre MD Hematocrit (Bld) [Volume fraction] 42.9 % Normal 36.3-47.1 [facility] Comment on above: Performed By: #### L IPRF, CDP, CP, TSHX #### [address] [address] Statistical Typist: Chato Aguirre MD Hemoglobin (Bld) [Mass/Vol] 13.5 g/dL Normal 11.9-15.1 [facility] Comment on above: Performed By: #### L IPRF, CDP, CP, TSHX #### [place] [address] Statistical Typist: Chato Aguirre MD Immature granulocytes/100 WBC (Bld) 0 % Normal 0 [facility] Comment on above: Performed By: #### L IPRF, CDP, CP, TSHX #### [place] [address] Statistical Typist: Chato Aguirre MD Lymphocytes (Bld) [#/Vol] 2.71 10*3/uL Normal 1.10-3.70 [facility] Comment on above: Performed By: #### L IPRF, CDP, CP, TSHX #### [place] [address] Statistical Typist: Chato Aguirre MD Lymphocytes/100 WBC (Bld) 30 % Normal 24-43 [facility] Comment on above: Performed By: #### L IPRF, CDP, CP, TSHX #### [place] [address] Statistical Typist: Chato Aguirre MD MCH (RBC) [Entitic mass] 27.6 pg Normal 25.2-33.5 [facility] Comment on above: Performed By: #### L IPRF, CDP, CP, TSHX #### [address] [address] Statistical Typist: Chato Aguirre MD MCHC (RBC) [Mass/Vol] 31.5 g/dL Normal 28.4-34.8 [facility] Comment on above: Performed By: #### L IPRF, CDP, CP, TSHX #### [address] [address] Statistical Typist: Chato Aguirre MD MCV (RBC) [Entitic vol] 87.6 fL Normal 82.6-102.9 [facility] Comment on above: Performed By: #### L IPRF, CDP, CP, TSHX #### [address] [address] Statistical Typist: Chato Aguirre MD Monocytes (Bld) [#/Vol] 0.48 10*3/uL Normal 0.10-1.20 [facility] Comment on above: Performed By: #### L IPRF, CDP, CP, TSHX #### [address] [address] Statistical Typist: Chato Aguirre MD Monocytes/100 WBC (Bld) 5 % Normal 3-12 [facility] Comment on above: Performed By: #### L IPRF, CDP, CP, TSHX #### [address] [address] Statistical Typist: Chato Aguirre MD Neutrophil (Seg) 62 % Normal 36-65 [facility] Comment on above: Performed By: #### L IPRF, CDP, CP, TSHX #### [address] [address] Statistical Typist: Chato Aguirre MD NRBC Automated 0.0 per 100 WBC Normal 0.0 [facility] Comment on above: Performed By: #### L IPRF, CDP, CP, TSHX #### [address] [address] Statistical Typist: Chato Aguirre MD Platelet mean volume (Bld) [Entitic vol] 11.6 fL Normal 8.1-13.5 [facility] Comment on above: Performed By: #### L IPRF, CDP, CP, TSHX #### [address] [address] Statistical Typist: Chato Aguirre MD Platelets (Bld) [#/Vol] 246 10*3/uL Normal 138-453 [facility] Comment on above: Performed By: #### L IPRF, CDP, CP, TSHX #### [address] [address] Statistical Typist: Chato Aguirre MD RBC (Bld) [#/Vol] 4.90 10*6/uL Normal 3.95-5.11 [facility] Comment on above: Performed By: #### L IPRF, CDP, CP, TSHX #### [address] [address] Statistical Typist: Chato Aguirre MD WBC (Bld) [#/Vol] 9.2 10*3/uL Normal 3.5-11.3 [facility] Comment on above: Performed By: #### L IPRF, CDP, CP, TSHX #### [address] [address] Statistical Typist: Chato Aguirre MD Auto Diff Performed NOT REPORTED Normal [facility] Comment on above: Performed By: #### L IPRF, CDP, CP, TSHX #### [address] [address] Statistical Typist: Chato Aguirre MD Platelet Estimate NOT REPORTED Normal [facility] Comment on above: Performed By: #### L IPRF, CDP, CP, TSHX #### [facility] [address] [place] [address] Statistical Typist: Chato Aguirre MD RBC morphology finding Nom (Bld) NOT REPORTED Normal [facility] Comment on above: Performed By: #### L IPRF, CDP, CP, TSHX #### [facility] [address] [place] [address] Statistical Typist: Chato Aguirre MD WBC Morphology NOT REPORTED Normal [facility] Comment on above: Performed By: #### L IPRF, CDP, CP, TSHX #### [facility] [address] [place] [address] Statistical Typist: Chato Aguirre MD Comp Metabolic Profon 2020 BUN/CRE Ratio NOT REPORTED Normal 02-17 [facility] Comment on above: Performed By: #### L IPRF, CDP, CP, TSHX #### [facility] [address] [place] [address] Statistical Typist: Chato Aguirre MD Staging: NOT REPORTED Normal [facility] Comment on above: Performed By: #### L IPRF, CDP, CP, TSHX #### [facility] [address] [place] [address] Statistical Typist: Chato Aguirre MD Comprehensive Metabolic Pane lOrdered By: Miguel Holley on 09-23-2020 Albumin [Mass/Vol] 4.3 g/dL 3.5 - 5.2 g/dL [employer] Phone: Albumin/Globulin [Mass ratio] 1.3 {ratio} [employer] Phone: ALP (Bld) [Catalytic activity/Vol] 49 U/L 35 - 104 U/L [employer] Phone: ALT [Catalytic activity/Vol] 36 U/L High 5 - 33 U/L [employer] Phone: Anion gap [Moles/Vol] 11 mmol/L 9 - 17 mmol/L [employer] Phone: AST [Catalytic activity/Vol] 27 U/L <32 [employer] Phone: Bilirubin [Mass/Vol] 0.34 mg/dL 0.3 - 1 .2 mg/dL [employer] Phone: Calcium [Mass/Vol] 9.5 mg/dL 8.6 - 10. 4 mg/dL [employer] Phone: Chloride [Moles/Vol] 102 mmol/L 98 - 10 7 mmol/L [employer] Phone: CO2 [Moles/Vol] 22 mmol/L 20 - 31 mmol/L [employer] Phone: Creatinine [Mass/Vol] 0.46 mg/dL Low 0.50 - 0.90 mg/dL [employer] Phone: Free PSA/Total PSA [Mass fraction] 7.5 g/dL 6.4 - 8.3 g/dL [employer] Phone: GFR >60 >60 mL/min [employer] Phone: GFR Non- >60 >60 mL/min [employer] Phone: GFR/1.73 sq M.predicted MDRD (S/P/Bld) [Vol rate/Area] [employer] Phone: Comment on above: Average GFR for 20-2 9 years old: 116 mL/min/1.73sq m Chronic Kidney Disease: <60 mL/min/1.73sq m Kidney failure: <15 mL/min/1.73sq m eGFR calculated using average adult body mass. Additional eGFR calculator available at: http://www.[employer]/multiple_crcl_2012.htm GFR/1.73 sq M.predicted MDRD (S/P/Bld) [Vol rate/Area] NOT REPORTED [employer] Phone: Glucose [Mass/Vol] 92 mg/dL 70 - 99 mg/dL [facility] Work Phone: Potassium [Moles/Vol] 4.2 mmol/L 3.7 - 5.3 mmol/L [facility] Phone: Sodium [Moles/Vol] 135 mmol/L 135 - 144 mmol/L [facility] Phone: Urea nitrogen (BldV) [Mass/Vol] 11 mg/dL 6 - 20 mg/dL [facility] Work Phone: Urea nitrogen/Creatinine (Bld) [Mass ratio] NOT REPORTED [facility] Phone: Laboratory - Chemistry and C hemistry - challengeOrdered By: Miguel Holley on 09-23-2020 Albumin [Mass/Vol] 4.3 g/dL (3.5-5.2 ) [facility] Work Phone: Comment on above: Note: Responsible Ob casino beverage server: CEEV AUTOFILE (3003) ALT [Catalytic activity/Vol] 36 U/L High (5-33 ) [facility] Work Phone: Comment on above: Note: Responsible Ob casino beverage server: CEEV AUTO[employer] (3003) Anion gap [Moles/Vol] 11 mmol/L (9-17 ) [facility] Work Phone: Comment on above: Note: Responsible Ob casino beverage server: CEEV AUTOFILE (3003) AST [Catalytic activity/Vol] 27 U/L (<32 ) [facility] Work Phone: Comment on above: Note: Responsible Ob casino beverage server: [employer] (3003) Bilirubin [Mass/Vol] 0.34 mg/dL (0.3-1.2 ) [facility] Work Phone: Comment on above: Note: Responsible Ob casino beverage server: CEEV AUTOFILE (3003) Calcium [Mass/Vol] 9.5 mg/dL (8.6-10.4 ) [facility] Work Phone: Comment on above: Note: Responsible Ob casino beverage server: [employer]EE[employer] (3003) Chloride [Moles/Vol] 102 mmol/L (98-107 ) [facility] Work Phone: Comment on above: Note: Responsible Ob casino beverage server: [employer] (3003) Cholesterol [Mass/Vol] 186 mg/dL (<200 ) [facility] Work Phone: Comment on above: Note: Cholesterol Gu idelines:<200 [id number] Borderline>240 UndesirableResponsible Observer: CEEV [employer] (3003) Cholesterol.total/Chol esterol in HDL [Mass ratio] 3.8 {ratio} (<5 ) [facility] Work Phone: Comment on above: Note: Responsible Ob casino beverage server: [employer]EEV [employer] (3003) CO2 [Moles/Vol] 22 mmol/L (20-31 ) [facility] Work Phone: Comment on above: Note: Responsible Ob casino beverage server: [employer]EEV [employer] (3003) Creatinine [Mass/Vol] 0.46 mg/dL Low (0.50- 0.90 ) [facility] Work Phone: Comment on above: Note: Responsible Ob casino beverage server: CEEV [employer] (3003) Glucose [Mass/Vol] 92 mg/dL (70-99 ) [facility] Work Phone: Comment on above: Note: Responsible Ob casino beverage server: [employer] (3003) Magnesium [Mass/Vol] 49 mg/dL (>40 ) [facility] Work Phone: Comment on above: Note: HDL Guidelines :<40 [id number] Borderline>59 DesirableResponsible Observer: CEEV AUTOFILE (3003) Magnesium [Mass/Vol] 102 mg/dL (0-130 ) [facility] Work Phone: Comment on above: Note: LDL Guidelines :<100 [id number] Near to/above [id number] Borderline>159 UndesirableDirect (measured) LDL and calculated LDL are not interchangeable tests.Responsible Observer: CEEV [employer] (3003) Magnesium [Mass/Vol] 173 mg/dL High (<150 ) [facility] Work Phone: Comment on above: Note: Triglyceride G uidelines:<150 [id number] High>499 Very highBased on AHA Guidelines for fasting triglyceride, February 2012.Responsible Observer: CEEV [employer] (3003) Potassium [Moles/Vol] 4.2 mmol/L (3.7-5.3 ) [facility] Work Phone: Comment on above: Note: Responsible Ob casino beverage server: [employer]EEV AUTOFILE (3003) Protein [Mass/Vol] 7.5 g/dL (6.4-8.3 ) [facility] Work Phone: Comment on above: Note: Responsible Ob casino beverage server: CEEV AUTOFILE (3003) Sodium [Moles/Vol] 135 mmol/L (135-144 ) [facility] Work Phone: Comment on above: Note: Responsible Ob casino beverage server: CEEV [employer]OFILE (3003) Urea nitrogen [Mass/Vol] 11 mg/dL (6-20 ) [facility] Work Phone: Comment on above: Note: Responsible Ob casino beverage server: CEEV [employer]OFILE (3003) Laboratory - Hematology and Cell countsOrdered By: Miguel Holley on 09-23-2020 Basophils/100 WBC (Bld) 1 % (0-2 ) [facility] Work Phone: Comment on above: Note: Responsible Ob casino beverage server: XNV AUTOFILE (3018) Eosinophils (Bld) [#/Vol] 0.14 10*3/uL (0.00-0.44 ) [facility] Work Phone: Comment on above: Note: Responsible Ob casino beverage server: XNV AUTOFILE (3018) Eosinophils/100 WBC (Bld) 2 % (1-4 ) [facility] Work Phone: Comment on above: Note: Responsible Ob casino beverage server: XNV AUTOFILE (3018) Erythrocyte distribution width (RBC) [Ratio] 12.4 % (11.8-14.4 ) [facility] Work Phone: Comment on above: Note: Responsible Ob casino beverage server: XNV AUTOFILE (3018) Hematocrit (Bld) [Volume fraction] 42.9 % (36.3-47.1 ) [facility] Work Phone: Comment on above: Note: Responsible Ob casino beverage server: XNV AUTOFILE (3018) Hemoglobin (Bld) [Mass/Vol] 13.5 g/dL (11.9-15.1 ) [facility] Work Phone: Comment on above: Note: Responsible Ob casino beverage server: XNV AUTOFILE (3018) Immature granulocytes/100 WBC (Bld) 0 % (0 ) [facility] Work Phone: Comment on above: Note: Responsible Ob casino beverage server: XNV AUTOFILE (3018) Lymphocytes (Bld) [#/Vol] 2.71 10*3/uL (1.10-3.70 ) [facility] Work Phone: Comment on above: Note: Responsible Ob casino beverage server: XNV AUTOFILE (3018) Lymphocytes/100 WBC (Bld) 30 % (24-43 ) [facility] Work Phone: Comment on above: Note: Responsible Ob casino beverage server: XNV AUTOFILE (3018) MCH (RBC) [Entitic mass] 27.6 pg (25.2-33.5 ) [facility] Work Phone: Comment on above: Note: Responsible Ob casino beverage server: XNV AUTOFILE (3018) MCHC (RBC) [Mass/Vol] 31.5 g/dL (28.4- 34.8 ) [facility] Work Phone: Comment on above: Note: Responsible Ob casino beverage server: XNV AUTOFILE (3018) MCV (RBC) [Entitic vol] 87.6 fL (82.6-102.9 ) [facility] Work Phone: Comment on above: Note: Responsible Ob casino beverage server: XNV AUTOFILE (3018) Monocytes (Bld) [#/Vol] 0.48 10*3/uL (0.10-1.20 ) [facility] Work Phone: Comment on above: Note: Responsible Ob casino beverage server: XNV AUTOFILE (3018) Monocytes/100 WBC (Bld) 5 % (3-12 ) [facility] Work Phone: Comment on above: Note: Responsible Ob casino beverage server: XNV AUTOFILE (3018) Platelet mean volume (Bld) [Entitic vol] 11.6 fL (8.1-13.5 ) [facility] Work Phone: Comment on above: Note: Responsible Ob casino beverage server: XNV AUTOFILE (8) Platelets (Bld) [#/Vol] 246 10*3/uL (138-453 ) [facility] Work Phone: Comment on above: Note: Responsible Ob casino beverage server: XNV AUTOFILE (3018) RBC (Bld) [#/Vol] 4.90 10*6/uL (3.95-5.11 ) [facility] Work Phone: Comment on above: Note: Responsible Ob casino beverage server: XNV AUTOFILE (3017) RBC morphology finding Nom (Bld) NOT REPORTED [facility] Work Phone: Segmented neutrophils/100 WBC (Bld) 62 % (36-65 ) [facility] Work Phone: Comment on above: Note: Responsible Ob casino beverage server: XNV AUTOFILE (3018) WBC (Bld) [#/Vol] 9.2 10*3/uL (3.5-11.3 ) [facility] Work Phone: Comment on above: Note: Responsible Ob casino beverage server: XNV AUTOFILE (3018) Lipid Prof, Fastingon 04-26- 2021 Cholesterol,VLDL NOT REPORTED Normal 1-30 [facility] Comment on above: Performed By: #### L IPRF, CDP, CP, TSHX #### [employer] [address] [place] [address] Statistical Typist: Chato Aguirre MD Lipid, FastingOrdered By: Zandra Holley on 09-23-2020 Cholesterol [Mass/Vol] 186 mg/dL <200 [employer] Work Phone: Comment on above: Cholesterol Guidelines: <200 Desirable 200-240 Borderline >240 Undesirable Cholesterol in HDL [Mass/Vol] 49 mg/dL >40 [employer] Phone: Comment on above: HDL Guidelines: <40 Undesirable 40-59 Borderline >59 Desirable Cholesterol in LDL [Mass/Vol] 102 mg/dL 0 - 130 mg/dL [employer] Phone: Comment on above: LDL Guidelines: <100 Desirable 100-129 Near to/above Desirable 130-159 Borderline >159 Undesirable Direct (measured) LDL and calculated LDL are not interchangeable tests. Cholesterol in VLDL [Mass/Vol] NOT REPORTED High 1 - 30 mg/dL [employer] Phone: Cholesterol.total/Chol esterol in HDL [Mass ratio] 3.8 {ratio} <5 [facility] Phone: Triglyceride, Fasting 173 mg/dL High <150 [facility] [employer] Work Phone: Comment on above: Triglyceride Guidelines: <150 Desirable 150-199 Borderline 200-499 High >499 Very high Based on AHA Guidelines for fasting triglyceride, February 2012. No Panel InformationOrdered By: Miguel Holley on 09-23-2020 Interpretation and review of laboratory results Abnormal [employer] Phone: (cont.) See Note [facility] Work Phone: Comment on above: Note: Average GFR fo r 20-29 years old:116 mL/min/1.73sq mChronic Kidney Disease:<60 mL/min/1.73sq mKidney failure:<15 mL/min/1.73sq meGFR calculated using average adult body mass. Additional eGFR calculatoravailable at:http://www.[employer]/multiple_crcl_2012.htmResponsible Observer: CEEV AUTOFILE (3003) Abs. Basophil 0.05 k/uL (0.00-0.20 ) [facility] Work Phone: Comment on above: Note: Responsible Ob casino beverage server: XNV AUTOFILE (3018) Abs.Imm.Granulocyte <0.03 k/uL (0.00-0. 30 ) [facility] Work Phone: Comment on above: Note: Responsible Ob casino beverage server: XNV AUTOFILE (3018) Abs.Neutrophil (Seg) 5.79 k/uL (1.50-8 .10 ) [facility] Work Phone: Comment on above: Note: Responsible Ob casino beverage server: XNV AUTOFILE (3018) Albumin/Glob Ratio 1.3 (1.0-2.5 ) [facility] Work Phone: Comment on above: Note: Responsible Ob casino beverage server: CEEV AUTOFILE (3003) Alkaline Phos 49 U/L (35-104 ) [facility] Work Phone: Comment on above: Note: Responsible Ob casino beverage server: CEEV AUTOFILE (3003) Auto Diff Performed NOT REPORTED [facility] Work Phone: BUN/CRE Ratio NOT REPORTED (9-20 ) [facility] Work Phone: Cholesterol,VLDL NOT REPORTED mg/dL (1-30 ) [facility] Work Phone: GFR, Amer >60 mL/min (>60 ) [facility] Work Phone: Comment on above: Note: Responsible Ob casino beverage server: CEEV AUTOFILE (3003) GFR,non Amer >60 mL/min (>60 ) [facility] Work Phone: Comment on above: Note: Responsible Ob casino beverage server: CEEV AUTOFILE (3003) NRBC Automated 0.0 per_100_WBC (0.0 ) [facility] Work Phone: Comment on above: Note: Responsible Ob casino beverage server: XNV AUTOFILE (3018) Platelet Estimate NOT REPORTED [facility] Work Phone: Reported Physicians See Note [facility] Work Phone: Comment on above: Note: Reported Physi cians:Ordering: Kyler AimeeAttending: Miguel ChávezReferring: Miguel Chávez Staging: NOT REPORTED [facility] Work Phone: Thyroid Stim. Horm. 3.38 mIU/L (0.30-5. 00 ) [facility] Work Phone: Comment on above: Note: Responsible Ob casino beverage server: CEEV AUTOFILE (3003) WBC Morphology NOT REPORTED [facility] Work Phone: TSH with ReflexOrdered By: Kamryn Holley on 09-23-2020 TSH Qn 3.38 m[IU]/L [facility] Work Phone: APTTon 04-08-2020 aPTT Coag (Bld) [Time] 25.2 s [place], [place] Comment on above: IV Heparin Therapy Range: 62.0-94.0 Brain Natriuretic Peptideon 04-08-2020 Natriuretic peptide B (Bld) [Mass/Vol] pg/mL <300 pg/mL [place], [place] Comment on above: Pro-BNP results ayse ot be compared to BNP results. Natriuretic peptide B (Bld) [Mass/Vol] Pro-BNP Reference Range: St. [facility], [place] Comment on above: Rule Out: <300 Weaver Zone: Age <50 300-450 Age 50-75 300-900 Age >75 300-1800 Usually represents mild to moderate HF but other cardiopulmonary causes cannot be ruled out. Rule In: Age <50 >450 Age 50-75 >900 Age >75 >1800 CBCon 04-08-2020 Erythrocyte distribution width (RBC) [Ratio] 11.9 % 11.8 - 14.4 % [place] Hematocrit (Bld) [Volume fraction] 37.9 % 36.3 - 47.1 % [place] Hemoglobin (Bld) [Mass/Vol] 12.5 g/dL 11.9 - 15.1 g/dL [place] MCH (RBC) [Entitic mass] 27.8 pg 25.2 - 33.5 pg [place] MCHC (RBC) [Mass/Vol] 33.0 g/dL 28.4 - 34.8 g/dL [place] MCV (RBC) [Entitic vol] 84.2 fL 82.6 - 102.9 fL [place] Platelet mean volume (Bld) [Entitic vol] 10.9 fL 8.1 - 13.5 fL [place] Platelets (Bld) [#/Vol] 184 10*3/uL [place] RBC (Bld) [#/Vol] 4.50 10*6/uL 3.95 - 5.1 1 m/uL [place] WBC (Bld) [#/Vol] 7.8 10*3/uL [place] WBC (Bld) [#/Vol] 0.0 10*3/uL 0.0 per 10 0 WBC [place] COVID-19on 04-08-2020 Interpretation and review of laboratory results Abnormal [place] SARS-CoV-2, Rapid DETECTED Abnormal Not Detected [place] Comment on above: Rapid NAAT: The [...] this assay. Fact sheet for Healthcare Providers: https://www.fda.gov/media/022667/download Fact sheet for Patients: https://www.fda.gov/media/237320/download Methodology: Isothermal Nucleic Acid Amplification Results reported to the appropriate Health Department Source .NASOPHARYNGEAL SWAB [place] CHEST PULMONARY EMBOLISM W CONTRASTon 04-08-2020 Unremarkable appeara nce of the chest with no evidence of pulmonary embolism and clear lungs. Incidentally noted hepatic fatty infiltration. [place] EXAMINATION: CTA OF THE CHEST 04/08/2020 [...] No significant osseous or soft tissue abnormality. [place], [place] Jean Marie, pn Incoming Radiant Results From N3TWORK/Pacs - 04/08/2020 4:12 PM EST EXAMINATION: CTA [...] clear lungs. Incidentally noted hepatic fatty infiltration. [place] Comprehensive Metabolic Pane fermin 04-08-2020 Albumin [Mass/Vol] 4.1 g/dL 3.5 - 5.2 g/dL [place] Albumin/Globulin [Mass ratio] 1.4 {ratio} [place] ALP [Catalytic activity/Vol] 62 U/L 35 - 104 U/L [place] ALT [Catalytic activity/Vol] 19 U/L 5 - 33 U/L [place] Anion gap [Moles/Vol] 10 mmol/L 9 - 17 mmol/L [place] AST [Catalytic activity/Vol] 20 U/L <32 [place] Bilirubin Ql (U) 0.48 mg/dL 0.3 - 1.2 mg/dL [place] Bun/Cre Ratio 23 High [place] Calcium [Mass/Vol] 8.9 mg/dL 8.6 - 10. 4 mg/dL [place] Chloride [Moles/Vol] 102 mmol/L 98 - 10 7 mmol/L [place] CO2 [Moles/Vol] 23 mmol/L 20 - 31 mmol/L [place] Creatinine [Mass/Vol] 0.47 mg/dL Low 0.5 - 0.9 mg/dL [place] GFR >60 >60 mL/min [place] GFR Non- >60 >60 mL/min [place] Glucose [Mass/Vol] 88 mg/dL 70 - 99 mg/dL [place] Interpretation and review of laboratory results Abnormal [place] Potassium [Moles/Vol] 3.7 mmol/L 3.7 - 5.3 mmol/L [place] Protein [Mass/Vol] 7.1 g/dL 6.4 - 8.3 g/dL [place] Sodium [Moles/Vol] 135 mmol/L 135 - 144 mmol/L [place] Urea nitrogen [Mass/Vol] 11 mg/dL 6 - 20 mg/dL [place] Metabolic Panelon 04-08-2020 GFR/1.73 sq M predicted among non-blacks MDRD (S/P/Bld) [Vol rate/Area] [place] Comment on above: Stage 1: Some [...] body mass. Additional eGFR calculator available at: http://www.MixVille/multiple_crcl_2012.htm Otheron 04-08-2020 SARS-CoV-2 [place] , Urineon 0 Beta HCG ( test) Ql (U) Negative NEGATIVE [place] Comment on above: Specimens with hCG l evels near the threshold of the test (25 mIU/mL) may give a negative or indeterminate result. In such cases, another test should be performed with a new specimen in 48-72 hours. If early is suspected clinically in this setting, correlation with quantitative serum b-hCG level is suggested. [employer] has confirmed the use of plasma for this test. This has not been cleared or approved by the U.S. Food and Drug Administration. The FDA has determined that such clearance is not necessary. Protime-INRon 04-08-2020 INR Coag (PPP) [Relative time] 1.0 {INR} [place] Comment on above: Non-therapeutic Range: INR = 0.9-1.2 Therapeutic Range: Moderate Anticoagulant Intensity: INR = 2.0-3.0 High Anticoagulant Intensity: INR = 2.5-3.5 PT Coag (PPP) [Time] 13.2 s [place] Troponinon 04-08-2020 Troponin I.cardiac [Mass/Vol] NOT REPORTED [place] Troponin T.cardiac [Mass/Vol] NOT REPORTED <0.03 ng/mL [place] Troponin, High Sensitivity <6 0 - 14 ng/L [place] Comment on above: High Sensitivity Troponin values cannot be compared with other Troponin methodologies. Patients with high levels of Biotin oral intake (i.e >5mg/day) may have falsely decreased Troponin levels. Samples collected within 8 hours of biotin intake may require additional information for diagnosis. CBC Auto Differentialon Basophils (Bld) [#/Vol] 0.05 10*3/uL [employer] Phone: Basophils/100 WBC (Bld) 1 % 0 - 2 % [employer] Phone: Differential Type NOT REPORTED [employer] Phone: Eosinophils (Bld) [#/Vol] 0.15 10*3/uL [employer] Phone: Eosinophils/100 WBC (Bld) 1 % 1 - 4 % [employer] Phone: Erythrocyte distribution width (RBC) [Ratio] 12.1 % 11.8 - 14.4 % [employer] Phone: Hematocrit (Bld) [Volume fraction] 44.5 % 36.3 - 47.1 % [employer] Phone: Hemoglobin (Bld) [Mass/Vol] 14.0 g/dL 11.9 - 15.1 g/dL [employer] Phone: Immature granulocytes (Bld) [#/Vol] 0 % 0 [employer] Phone: Immature granulocytes (Bld) [#/Vol] 10*3/uL [employer] Phone: Interpretation and review of laboratory results Abnormal [employer] Phone: Lymphocytes (Bld) [#/Vol] 2.83 10*3/uL [employer] Phone: Lymphocytes/100 WBC (Bld) 27 % 24 - 43 % [employer] Phone: MCH (RBC) [Entitic mass] 27.6 pg 25.2 - 33.5 pg [employer] Phone: MCHC (RBC) [Mass/Vol] 31.5 g/dL 28.4 - 34.8 g/dL [employer] Phone: MCV (RBC) [Entitic vol] 87.6 fL 82.6 - 102.9 fL [employer] Phone: Monocytes (Bld) [#/Vol] 0.52 10*3/uL [employer] Phone: Monocytes/100 WBC (Bld) 5 % 3 - 12 % [employer] Phone: Platelet mean volume (Bld) [Entitic vol] 12.0 fL 8.1 - 13.5 fL [employer] Phone: Platelets (Bld) [#/Vol] NOT REPORTED [employer] Phone: Platelets (Bld) [#/Vol] 241 10*3/uL [employer] Phone: RBC (Bld) [#/Vol] 5.08 10*6/uL 3.95 - 5.1 1 m/uL [employer] Work Phone: RBC morphology finding Nom (Bld) NOT REPORTED [employer] Phone: Segmented neutrophils/100 WBC (Bld) 66 % High 36 - 65 % [employer] Phone: Segs Absolute 7.04 [employer] Work Phone: WBC (Bld) [#/Vol] 10.6 10*3/uL [employer] Phone: WBC (Bld) [#/Vol] 0.0 10*3/uL 0.0 per 10 0 WBC [employer] Work Phone: WBC Morphology NOT REPORTED Tereza Hernandes alth Work Phone: [facility] 07-06-2019 Cholesterol [Mass/Vol] 198 mg/dL (<200) He alth [facility] Work Phone: Comment on above: Note: Cholesterol Gu idelines:<200 [id number] Borderline>240 UndesirableResponsible Observer: CCEV AUTOFILE ([id number]) Comprehensive Metabolic Pane fermin 07-06-2019 Albumin [Mass/Vol] 4.5 g/dL 3.5 - 5.2 g/dL [employer] Work Phone: Albumin/Globulin [Mass ratio] 1.4 {ratio} [employer] Work Phone: ALP [Catalytic activity/Vol] 62 U/L 35 - 104 U/L [employer] Work Phone: ALT [Catalytic activity/Vol] 39 U/L High 5 - 33 U/L [employer] Work Phone: Anion gap [Moles/Vol] 16 mmol/L 9 - 17 mmol/L [employer] Work Phone: AST [Catalytic activity/Vol] 32 U/L High <32 [employer] Phone: Bilirubin Ql (U) 0.25 mg/dL Low 0.3 - 1.2 mg/dL [employer] Work Phone: Bun/Cre Ratio NOT REPORTED Tereza [facility] Work Phone: Calcium [Mass/Vol] 9.8 mg/dL 8.6 - 10. 4 mg/dL [employer] Work Phone: Chloride [Moles/Vol] 103 mmol/L 98 - 10 7 mmol/L [employer] Work Phone: CO2 [Moles/Vol] 19 mmol/L Low 20 - 31 mmol/L [employer] Work Phone: Creatinine [Mass/Vol] 0.51 mg/dL 0.5 - 0.9 mg/dL [employer] Phone: GFR >60 >60 mL/min [employer] Phone: GFR Non- >60 >60 mL/min [employer] Phone: GFR/1.73 sq M predicted among non-blacks MDRD (S/P/Bld) [Vol rate/Area] [employer] Phone: Comment on above: Average GFR for 20-2 9 years old: 116 mL/min/1.73sq m Chronic Kidney Disease: <60 mL/min/1.73sq m Kidney failure: <15 mL/min/1.73sq m eGFR calculated using average adult body mass. Additional eGFR calculator available at: http://www.Mix[employer]/multiple_crcl_2012.htm GFR/1.73 sq M predicted among non-blacks MDRD (S/P/Bld) [Vol rate/Area] NOT REPORTED [employer] Phone: Glucose [Mass/Vol] 89 mg/dL 70 - 99 mg/dL [employer] Phone: Interpretation and review of laboratory results Abnormal [employer] Phone: Potassium [Moles/Vol] 4.6 mmol/L 3.7 - 5.3 mmol/L [employer] Phone: Protein [Mass/Vol] 7.8 g/dL 6.4 - 8.3 g/dL [employer] Phone: Sodium [Moles/Vol] 138 mmol/L 135 - 144 mmol/L [employer] Phone: Urea nitrogen [Mass/Vol] 14 mg/dL 6 - 20 mg/dL [employer] Phone: Hematologyon 07-06-2019 Basophils/100 WBC (Bld) 1 % (0-2) [facility] Work Phone: Comment on above: Note: Responsible Ob casino beverage server: XNV AUTOFILE (3018) Eosinophils (Bld) [#/Vol] 0.15 10*3/uL (0.00-0.44) [facility] Work Phone: Comment on above: Note: Responsible Ob casino beverage server: XNV AUTOFILE (3018) Eosinophils/100 WBC (Bld) 1 % (1-4) [facility] Work Phone: Comment on above: Note: Responsible Ob casino beverage server: XNV AUTOFILE (3018) Hematocrit (Bld) [Volume fraction] 44.5 % (36.3-47.1) [facility] Work Phone: Comment on above: Note: Responsible Ob casino beverage server: XNV AUTOFILE (3018) Hemoglobin (Bld) [Mass/Vol] 14.0 g/dL (11.9-15.1) [facility] Work Phone: Comment on above: Note: Responsible Ob casino beverage server: XNV AUTOFILE (3018) Lymphocytes (Bld) [#/Vol] 2.83 10*3/uL (1.10-3.70) [facility] Work Phone: Comment on above: Note: Responsible Ob casino beverage server: XNV AUTOFILE (3018) Lymphocytes/100 WBC (Bld) 27 % (24-43) [facility] Work Phone: Comment on above: Note: Responsible Ob casino beverage server: XNV AUTOFILE (3018) MCH (RBC) [Entitic mass] 27.6 pg (25.2-33.5) [facility] Work Phone: Comment on above: Note: Responsible Ob casino beverage server: XNV AUTOFILE (3018) MCV (RBC) [Entitic vol] 87.6 fL (82.6-102.9 ) [facility] Work Phone: Comment on above: Note: Responsible Ob casino beverage server: XNV AUTOFILE (3018) Monocytes (Bld) [#/Vol] 0.52 10*3/uL (0.10-1.20) [facility] Work Phone: Comment on above: Note: Responsible Ob casino beverage server: XNV AUTOFILE (3018) Monocytes/100 WBC (Bld) 5 % (3-12) [facility] Work Phone: Comment on above: Note: Responsible Ob casino beverage server: XNV AUTOFILE (3018) Platelets (Bld) [#/Vol] NOT REPORTED [facility] Work Phone: [phone] Platelets (Bld) [#/Vol] 241 10*3/uL (138-453) [facility] Work Phone: [phone] Comment on above: Note: Responsible Ob casino beverage server: XNV AUTOFILE (3018) RBC (Bld) [#/Vol] 5.08 10*6/uL (3.95-5.11) [facility] Work Phone: Comment on above: Note: Responsible Ob casino beverage server: XNV AUTOFILE (3018) RBC morphology finding Nom (Bld) NOT REPORTED [facility] Work Phone: [phone] WBC (Bld) [#/Vol] 0.0 per_100_WBC (0.0) [facility] Work Phone: Comment on above: Note: Responsible Ob casino beverage server: XNV AUTOFILE (3018) WBC (Bld) [#/Vol] 10.6 10*3/uL (3.5-11.3) [facility] Work Phone: Comment on above: Note: Responsible Ob casino beverage server: XNV AUTOFILE (3018) Lipid, Fastingon 07-06-2019 Cholesterol [Mass/Vol] 198 mg/dL <200 [facility] [employer] Work Phone: Comment on above: Cholesterol Guidelines: <200 Desirable 200-240 Borderline >240 Undesirable Cholesterol in HDL [Mass/Vol] 53 mg/dL >40 [facility] [employer] Work Phone: Comment on above: HDL Guidelines: <40 Undesirable 40-59 Borderline >59 Desirable Cholesterol in LDL [Mass/Vol] 118 mg/dL 0 - 130 mg/dL [facility]: Comment on above: LDL Guidelines: <100 Desirable 100-129 Near to/above Desirable 130-159 Borderline >159 Undesirable Direct (measured) LDL and calculated LDL are not interchangeable tests. Cholesterol in VLDL [Mass/Vol] NOT REPORTED 1 - 30 mg/dL [facility] Phone: Cholesterol.total/Chol esterol in HDL [Mass ratio] 3.7 {ratio} <5 [facility] [employer] Phone: Triglyceride, Fasting 135 mg/dL <150 [facility] [employer] Work Phone: Comment on above: Triglyceride Guidelines: <150 Desirable 150-199 Borderline 200-499 High >499 Very high Based on AHA Guidelines for fasting triglyceride, February 2012. Metabolic Panelon 07-06-2019 Albumin [Mass/Vol] 4.5 g/dL (3.5-5.2) [facility] Work Phone: Comment on above: Note: Responsible Ob casino beverage server: CCEV AUTOFILE (3002) ALT [Catalytic activity/Vol] 39 U/L High (5-33) [facility] Work Phone: Comment on above: Note: Responsible Ob casino beverage server: CCEV AUTOFILE (3002) Anion gap [Moles/Vol] 16 mmol/L (9-17) [facility] Work Phone: Comment on above: Note: Responsible Ob casino beverage server: CCEV AUTOFILE (3002) AST [Catalytic activity/Vol] 32 U/L High (<32) [facility] Work Phone: Comment on above: Note: Responsible Ob casino beverage server: CCEV AUTOFILE (3002) Bilirubin [Mass/Vol] 0.25 mg/dL Low (0.3-1.2) [facility] Work Phone: Comment on above: Note: Responsible Ob casino beverage server: CCEV AUTOFILE (3002) Calcium [Mass/Vol] 9.8 mg/dL (8.6-10.4) [facility] Work Phone: Comment on above: Note: Responsible Ob casino beverage server: CCEV AUTOFILE (3002) Chloride [Moles/Vol] 103 mmol/L (98-107) [facility] Work Phone: Comment on above: Note: Responsible Ob casino beverage server: CCEV AUTOFILE (3002) CO2 [Moles/Vol] 19 mmol/L Low (20-31) [facility] Work Phone: Comment on above: Note: Responsible Ob casino beverage server: CCEV AUTOFILE (3002) Creatinine [Mass/Vol] 0.51 mg/dL (0.50-0.90) [facility] Work Phone: Comment on above: Note: Responsible Ob casino beverage server: CCEV AUTOFILE (3002) Glucose [Mass/Vol] 89 mg/dL (70-99) [facility] Work Phone: Comment on above: Note: Responsible Ob casino beverage server: CCEV AUTOFILE (3002) Potassium [Moles/Vol] 4.6 mmol/L (3.7-5.3) [facility] Work Phone: Comment on above: Note: Responsible Ob casino beverage server: CCEV AUTOFILE (3002) Protein [Mass/Vol] 7.8 g/dL (6.4-8.3) [facility] Work Phone: Comment on above: Note: Responsible Ob casino beverage server: CCEV AUTOFILE (3002) Sodium [Moles/Vol] 138 mmol/L (135-144) [facility] Work Phone: Comment on above: Note: Responsible Ob casino beverage server: CCEV AUTOFILE (3002) Urea nitrogen [Mass/Vol] 14 mg/dL (6-20) [facility] Work Phone: Comment on above: Note: Responsible Ob casino beverage server: CCEV AUTOFILE (3002) Otheron 07-06-2019 (cont.) See Note [facility] Work Phone: Comment on above: Note: Average GFR fo r 20-29 years old:116 mL/min/1.73sq mChronic Kidney Disease:<60 mL/min/1.73sq mKidney failure:<15 mL/min/1.73sq meGFR calculated using average adult body mass. Additional eGFR calculatoravailable at:http://www.Mix[employer]ille/multiple_crcl_2011.htmResponsible Observer: CCEV AUTOFILE (3002) Abs. Basophil 0.05 k/uL (0.00-0.20) [facility] Work Phone: [phone] Comment on above: Note: Responsible Ob casino beverage server: XNV AUTOFILE (3018) Abs.Imm.Granulocyte <0.03 k/uL (0.00-0.30) [facility] Work Phone: [phone] Comment on above: Note: Responsible Ob casino beverage server: XNV AUTOFILE (3018) Abs.Neutrophil (Seg) 7.04 k/uL (1.50-8.10) [facility] Work Phone: [phone] Comment on above: Note: Responsible Ob casino beverage server: XNV AUTOFILE (3018) Albumin/Glob Ratio 1.4 (1.0-2.5) [facility] Work Phone: [phone] Comment on above: Note: Responsible Ob casino beverage server: CCEV AUTOFILE (3002) Alkaline Phos 62 U/L (35-104) [facility] Work Phone: [phone] Comment on above: Note: Responsible Ob casino beverage server: CCEV AUTOFILE (3002) Auto Diff Performed NOT REPORTED [facility] Work Phone: [phone] BUN/CRE Ratio NOT REPORTED (9-20) [facility] Work Phone: [phone] Cholesterol,HDL 53 mg/dL (>40) [facility] Work Phone: [phone] Comment on above: Note: HDL Guidelines :<40 [id number] Borderline>59 DesirableResponsible Observer: CCEV AUTOFILE (3002) Cholesterol,LDL 118 mg/dL (0-130) [facility] Work Phone: Comment on above: Note: LDL Guidelines :<100 [id number] Near to/above [id number] Borderline>159 UndesirableDirect (measured) LDL and calculated LDL are not interchangeable tests.Responsible Observer: CCEV AUTOFILE (3002) Cholesterol,VLDL NOT REPORTED mg/dL (06-29) [facility] Work Phone: [phone] Cholesterol.total/Chol esterol in HDL [Mass ratio] 3.7 {ratio} (<5) [facility] Work Phone: [phone] Comment on above: Note: Responsible Ob casino beverage server: CCEV AUTOFILE (3002) Erythrocyte distribution width (RBC) [Ratio] 12.1 % (11.8-14.4) [facility] Work Phone: Comment on above: Note: Responsible Ob casino beverage server: XNV AUTOFILE (3018) Free Insulin 34 uIU/mL High (3-19) [facility] Work Phone: Comment on above: Note: Responsible Ob casino beverage server: LAB ARUP (0603) GFR, Amer >60 mL/min (>60) [facility] Work Phone: Comment on above: Note: Responsible Ob casino beverage server: CCEV AUTOFILE (3002) GFR,non Amer >60 mL/min (>60) [facility] Work Phone: Comment on above: Note: Responsible Ob casino beverage server: CCEV AUTOFILE (3002) Immature granulocytes (Bld) [#/Vol] 0 % (0) [facility] Work Phone: Comment on above: Note: Responsible Ob casino beverage server: XNV AUTOFILE (3018) MCHC (RBC) [Mass/Vol] 31.5 g/dL (28.4-34.8) [facility] Work Phone: Comment on above: Note: Responsible Ob casino beverage server: XNV AUTOFILE (3018) Performing Lab: see note [facility] Work Phone: [phone] Comment on above: Note: BRI Butler [address] [facility] [address] Note: KIERAN - KIERAN La [facility]atories [address] [facility] [id number] Platelet mean volume (Bld) [Entitic vol] 12.0 fL (8.1-13.5) [facility] Work Phone: Comment on above: Note: Responsible Ob casino beverage server: XNV AUTOFILE (3018) Reported Physicians See Note [facility] Work Phone: Comment on above: Note: Reported Physi cians:Ordering: Allyson Floyd AAttending: No FloydthiaReferring: Allyson Floyd Segmented neutrophils/100 WBC (Bld) 66 % High (36-65) [facility] Work Phone: Comment on above: Note: Responsible Ob casino beverage server: XNV AUTOFILE (1672) Staging: NOT REPORTED [facility] Work Phone: [phone] Thyroid Stim. Horm. 4.15 mIU/L (0.30-5.00) [facility] Work Phone: Comment on above: Note: Responsible Ob casino beverage server: CCEV AUTOFILE (3002) Thyroxine, Free 1.21 ng/dL (0.93-1.70) [facility] Work Phone: Comment on above: Note: Responsible Ob casino beverage server: CCEV AUTOFILE (3002) Total Insulin 46 uIU/mL High (3-19) [facility] Work Phone: Comment on above: Note: (NOTE)INTERPRE TIVE INFORMATION: Insulin, Free and TotalThis test reacts on a nearly equimolar basis with the analogsinsulin aspart, insulin glargine, and insulin lispro. Insulindetemir exhibits approximately 50 percent cross-reactivity. Testreactivity with insulin glulisine is negligible (<3 percent). Toconvert to pmol/L, multiply uIU/mL by 6.0. Reference intervalsestablished for fasting specimens.Performed by [employer],[address] [facility], [facility],[place] [id number] www.[email or web address], [place] Xiong MD, Lab. DirectorResponsible Observer: LAB KIERAN (0603) Triglyceride,Fasting 135 mg/dL (<150) [facility] Work Phone: Comment on above: Note: Triglyceride G uidelines:<150 [id number] High>499 Very highBased on AHA Guidelines for fasting triglyceride, February 2012.Responsible Observer: CCEV AUTOFILE (1003) Triiodothyronine T3 150 ng/dL (80-200) [facility] Work Phone: Comment on above: Note: Responsible Ob casino beverage server: CEEV AUTOFILE (9423) WBC Morphology NOT REPORTED [facility] Work Phone: T3on 07-06-2019 T3, Total 150 ng/dL 80 - 200 ng/dL [employer] Phone: T4, Freeon 07-06-2019 Thyroxine, Free 1.21 ng/dL 0.93 - 1.7 ng/dL [employer] Work Phone: TSH without Reflexon 020 TSH Qn 4.15 m[IU]/L [employer] Work Phone: US NON OB TRANSVAGINALon Satisfactory IUD position. RECOMMENDATIONS: No follow-up imaging is recommended. Reference: US BPRs based on Radiology 2009;256(3):943-54; CT/MR BPRs based on J Am Joanne Radiol 2013;10:675-681. [place] [place] EXAMINATION: PELVIC ULTRASOUND 02/02/2019 TECHNIQUE: Transvaginal [...] Fluid: No evidence of free fluid. [facility] Jean Marie, Mhpn Incoming Radiant Results From N3TWORK/IN-PIPE TECHNOLOGY - 02/02/2019 8:44 AM EDT EXAMINATION: PELVIC [...] on J Am Joanne Radiol 2013;10:675-681. [facility] CNOVon 08-21-2018 CNOV Office Visit ([facility] ) ----- ESTEFANIA NAVARRETE ([id number]) 1995 F Date Time Provider Department 08/21/18 12:00 PM MIGUEL TENA) [facility] During your visit today, we recorded the following information about you: Temperature Pulse Respiration Blood pressure 97.6 degrees 99/minute 16/minute 136/81 Weight 109.8 kg Miguel Tena APRN.CUSTOMS EXAMINER 08/21/2018 12:46 PM Signed Subjective The history is provided by the patient. No varying exceptionalities teacher was used. Cough This is a new [...] is a safe and effective decongestant 3. Zapata Nasal [place] may offer relief of nasal and head [...] help open respiratory and sinus passages. - Zapata Nasal [place] may offer relief of nasal and head [...] get worse. Thank you for coming to [facility] today. I appreciate your confidence in choosing the [facility] for your medical care. Miguel Tena APRN.CUSTOMS EXAMINER [facility] [address] [facility] [address] Referring Provider: SELF [200] [...] is a safe and effective decongestant 3. Zapata Nasal [place] may offer relief of nasal and head [...] help open respiratory and sinus passages. - Zapata Nasal [place] may offer relief of nasal and head [...] get worse. [facility]. I appreciate your confidence in choosing the [facility] for your medical care. Miguel Tena APRN.[facility] [place] [id number] [facility] [address] Prescriptions ordered this encounter Disp [...] by MIGUEL TENA CNP on 08/21/18 Normal [facility] PROGRESSon 08-21-2018 Protein mass conc HNO ID: [id number] Author: Miguel Tena Service: ? Author Type: Nurse Practitioner Type: Progress Notes Filed: 08/21/2018 12:46 PM Note Text: Subjective The history is provided by the patient. No varying exceptionalities teacher was used. Cough This is a new [...] 3-5 days or get worse Miguel Tena APRN.CUSTOMS EXAMINER Normal [facility] CNCOon 12-22-2017 CNCO Letter Text Erica Velazquez MD [facility] [address] [place] [address] Estefania Navarrete December 22, 2017 Estefania Navarrete [id number] [facility] [address] Dear Ms. Navarrete, It was noted that you did not keep your scheduled appointment on 12-22-17. It is important to contact the office in advance if you are unable to keep your appointment so that it is available for other patients. Your medical care is important to us. Please call our office to reschedule an appointment. Sincerely, Erica Velazquez MD [facility] Consult Reporton 01-05-2017 Consult Report Patient: JITENDRA NAVARRETE Age: 21 years Sex: Female : 1995 Associated Diagnoses: None Author: TYRON MA RES, [facility] DepartmentReason for Consult: Active Problems [...] discussed with attending physician, Dr. Jaime Shepard [id number] ically Signed by: KAREN SHEPARD DPM, RES on 01/04/2017 13:59 EDTElectronically Co-Signed by: KAREN SHEPARD DPM, RESon 01/04/2017 14:37 EDTElectronically Co-Signed by: Rene REYES DPM 01/05/2017 18:28 EDT Normal [facility] APTTon 01-04-2017 aPTT 29.9 Second(s) Normal [facility] Comment on above: Result Comment: VERI FIED by Discern Expert. Performed By: #### 1 30069, 0825298, 007031, 113842, 466766, 584081 ####[facility] [address] [place] [address] Medical Director: David Doe MD aPTT 25.9 Second(s) Normal 25.0-36.0 [facility] Comment on above: Performed By: #### 1 86876, 8948586, 345142, 037917, 742594, 464026 ####[facility] [address] [place] [address] Medical Director: David Doe MD AUTO DIFFon 01-04-2017 Basophils Auto #/vol (Bld) 0.04 x1000 Normal 0.00-0.20 [facility] Comment on above: Performed By: #### 1 01224, 9296684, 260433, 114945, 317572, 315691 ####[facility] Xfgfmntu19047 [place] [address] Medical Director: David Doe MD Basos % 0.5 % Normal [facility] Comment on above: Performed By: #### 1 25043, 9000818, 585495, 712819, 938340, 115456 ####[facility] Qyexrjes71423 [place] [address] Medical Director: David Doe MD Eos Count 0.10 x1000 Normal 0.00-0.50 [facility] Comment on above: Performed By: #### 1 07548, 6577964, 791966, 693182, 223277, 837834 ####[facility] [address]ckqhozt84805 [place] [address] Medical Director: David Doe MD Eosinophils/100 leukocytes 1.0 % Normal [facility] Comment on above: Performed By: #### 1 22499, 1412426, 386496, 229036, 511247, 785597 ####[facility] [address] [place] [id number] Medical Director: David Doe MD Lymphocytes 2.84 x1000 Normal 1.20-4.80 [facility] Comment on above: Performed By: #### 1 85923, 2318763, 778887, 096513, 670355, 278095 ####[facility] Wasloncc22266 [place] [address] Medical Director: David Doe MD Lymphocytes/100 leukocytes 29.4 % Normal [facility] Comment on above: Performed By: #### 1 13684, 6073269, 634398, 163879, 425820, 267292 ####[facility] Tshzkpmr27884 [place] [address] Medical Director: David Doe MD Newberry Count 0.68 x1000 Normal 0.10-1.00 [facility] Comment on above: Performed By: #### 1 37953, 1597545, 255271, 046449, 790195, 760667 ####[facility] [address]muuhhlr65[address] [place] [address] Medical Director: David Doe MD Monocytes/100 leukocytes 7.0 % Normal [facility] Comment on above: Performed By: #### 1 58602, 3354295, 731277, 292278, 230501, 033413 ####[facility] [address]mqwf12085 [place] [address] Medical Director: David Doe MD Neutrophils 5.98 x1000 Normal 1.40-8.80 [facility] Comment on above: Performed By: #### 1 50968, 3153560, 332124, 310442, 569162, 452549 ####[facility] [address]zh74[address] [place] [address] Medical Director: David Doe MD Neutrophils/100 WBC Auto (Bld) 62.0 % Normal [facility] Comment on above: Performed By: #### 1 51576, 2094549, 756249, 142321, 440147, 457874 ####[facility] [address]ahgrh34578 [place] [address] Medical Director: David Doe MD COMPMETAon 01-04-2017 Globulin 4.0 g/dL Normal [facility] Comment on above: Performed By: #### 1 15030, 2900103, 861713, 463249, 149232, 658848 ####[facility] [address] [place] [address] Medical Director: David Doe MD Osmolality 277 mOsm/kg Normal 275-295 [facility] Comment on above: Performed By: #### 1 10632, 8629197, 613329, 849652, 687249, 176987 ####[facility] X[address]jv[address] [place] [address] Medical Director: David Doe MD eGFR (non-black) mL/min/{1.73_m2} Normal So [facility] Comment on above: Result Comment: Afri can Scottish GFR Calc Performed By: #### 1 93463, 5382878, 847110, 563353, 861933, 202432 ####[facility] [address]sbxadgt36[address] [place] [address] Medical Director: David Doe MD Result Comment: Non GFR CalcMedical judgement is necessary to interpret GFR. The calculated GFR may not accurately reflect renal status in patients >70 years, women, acutely ill hospitalized patients and patients with acute renal failure or known renal disease.Note:Creatinine clearance (not GFR) should be used for drug dosing. Albumin/Globulin Ratio 0.8 {ratio} Normal [facility] Comment on above: Performed By: #### 1 23492, 2473945, 214892, 170160, 720002, 843813 ####[facility] [address] [place] [address] Medical Director: David Doe MD BUN/Creatinine Ratio 17.6 mg/mg Normal [facility] Comment on above: Performed By: #### 1 90194, 5175945, 807288, 413691, 370425, 738259 ####[facility] [address] [place] [address] Medical Director: David Doe MD Alk Phos 61 unit/L Normal 45-117 [facility] Comment on above: Performed By: #### 1 86839, 6687513, 757548, 748772, 070671, 719260 ####[facility] [address] [place] [address] Medical Director: David Doe MD Bilirubin (total) 0.41 mg/dL Normal 0.20-1.00 [facility] Comment on above: Performed By: #### 1 89925, 2599519, 516747, 948928, 547848, 432150 ####[facility] [address]ekzrvum[address]24 [place] [address] Medical Director: David Doe MD Protein 7.4 g/dL Normal 6.0-8.5 [facility] Comment on above: Performed By: #### 1 29837, 0222091, 962487, 951732, 162305, 158455 ####[facility] [address] [place], [place] [address]) [phone] Director: David Doe MD GPT 16 unit/L Normal 13-56 [facility] Comment on above: Result Comment: Mariposa puncture should occur prior to sulfasalazine and/or sulfapyridine administration due to the potential for falsely depressed results.Baseline assay values before administration of sulfasalazine and sulfapyridine therapy would not be affected. Performed By: #### 1 86108, 5739496, 429951, 192663, 501944, 722204 ####[facility] Gzkcgbcq422[address] [place] [address]) [phone] Director: David Doe MD Creatinine 0.7 mg/dL Normal 0.6-1.0 [facility] Comment on above: Performed By: #### 1 41293, 2944019, 654565, 796105, 744927, 568405 ####[facility] [address] [place] [address]) [phone] Director: David Doe MD GOT 14 unit/L Low 15-37 [facility] Comment on above: Result Comment: Mariposa puncture should occur prior to sulfasalazine and/or sulfapyridine administration due to the potential for falsely depressed results.Baseline assay values before administration of sulfasalazine and sulfapyridine therapy would not be affected. Performed By: #### 1 58796, 9156822, 627765, 723004, 128851, 760380 ####[facility] [address]tulma[address] [place], [place] [address]) [phone] Director: David Doe MD Urea nitrogen 13 mg/dL Normal 10-20 [facility] Comment on above: Performed By: #### 1 48739, 2911152, 923412, 734899, 104800, 590498 ####[facility] [address]mp[address]38[address] [place], [place] [address]) [phone] Director: David Doe MD Glucose mass conc 86 mg/dL Normal 72-100 [facility] Comment on above: Result Comment: Mariposa puncture should occur prior to sulfasalazine administration due to the potential for falsely depressed results. Venipuncture should occur prior to sulfapyridine administration due to the potential falsely elevated results.Baseline assay values before administration of sulfasalazine and sulfapyridine therapy would not be affected. Performed By: #### 1 21664, 0182106, 428043, 782021, 857235, 565040 ####[facility] [address] [place], [place] [address]) [phone] Director: David Doe MD Albumin 3.4 g/dL Normal 3.4-5.0 [facility] Comment on above: Performed By: #### 1 36528, 2336676, 929508, 660670, 080008, 531548 ####[facility] [address]qpjuojp[address] [place], [place] [address]) [phone] Director: David Doe MD CO2 19.0 mmol/L Low 21.0-32.0 [facility] Comment on above: Performed By: #### 1 84057, 1733265, 102380, 883125, 785959, 964679 ####[facility] [address]waf90890 [place] [address] Medical Director: David Doe MD Calcium 9.0 mg/dL Normal 8.5-10.5 [facility] Comment on above: Performed By: #### 1 01729, 3895094, 567307, 893943, 504655, 853067 ####[facility] Var[address]yku359[address] [place], [place] [address]) [phone] Director: David Doe MD Potassium molar conc 3.7 mmol/L Normal 3.5-5.1 [facility] Comment on above: Performed By: #### 1 57475, 0661117, 999654, 041301, 201346, 770785 ####[facility] [address]abqv[address]64 [place] [address] Medical Director: David Doe MD Sodium 139 mmol/L Normal 135-145 [facility] Comment on above: Performed By: #### 1 16419, 0728374, 457277, 724998, 931408, 069345 ####[facility] [address] [place], [place] [address]) [phone] Director: David Doe MD Chloride 108 mmol/L Normal 100-109 [facility] Comment on above: Performed By: #### 1 54202, 5921346, 811901, 944649, 715304, 627276 ####[facility] [address]knw34287 [place] [address] Medical Director: David Doe MD CT LOWER [...] Damir SMITH MD Out: 01/04/17 12:59:57 Normal [facility] ED Physician Reporton 2016 ED Physician Report Patient: JITENDRA NAVARERTE Age: 21 years Sex: Female : 1995 [...] Plan Diagnosis Crush injury of right foot (KZC68-PP S97.81XA, Working, Medical) Plan Condition: Stable. Disposition: ED Discharge to Home was placed.(01/04/2017 13:39:31 EDT, Constant Order). Prescriptions: Launch prescriptions Pharmacy:Percocet 5/325 ([id number]) oral tablet (Prescribe): 1 tabs, ORAL, [id number], PRN: for pain, 24 tabs, 0 Refill(s)doxycycline hyclate 100 mg oral tablet (Prescribe): 100 mg = 1 tabs, ORAL, BID, for 10 days, 20 tabs, 0 Refill(s). Patient was given the following educational materials: Cryotherapy, Udzy-os-Hiex, Compartment Syndrome of the Foot, Compartment Syndrome of the Foot, Cryotherapy, Ofcr-qb-Zdef. Follow up with: [facility] [...] by: Selene GALVAN MD 01/04/2017 14:19 Normal [facility] ED Progress Noteon 7 ED Progress [...] medicatedsig other at bedsidepodiatry coming to see [id number] ASSUMED CARE OF PT, REPORT RECEIVED FROM [...] a little dizzy after trying crutches. Normal [facility] HCGon 01-04-2017 HCG, Qual <1.0 Normal [facility] Comment on above: Result Comment: 0 - 3 Negative3 - 50 Inconclusive>50 Positive Performed By: #### 1 51199, 5792541, 838839, 100575, 162071, 956509 ####[facility] [address]qhpuse[address]77 [place] [address] Medical Director: David Doe MD HEMOon 01-04-2017 DIFF? No Normal [facility] Comment on above: Performed By: #### 1 19298, 2028103, 638696, 240818, 867304, 635248 ####[facility] [address] [place] [id number]) [phone] Director: David Doe MD Erythrocyte distribution width Auto Ratio (RBC) 13.3 % Normal 11.5-14.5 [facility] Comment on above: Performed By: #### 1 91813, 4917412, 284365, 224816, 145400, 439710 ####[facility] [address] [place], [place] [address]) [phone] Director: David Doe MD Erythrocytes (RBC) 4.80 x10 Normal 4.20-5.40 [facility] Comment on above: Result Comment: Note : RBC morphology is normal unless otherwise stated. Evaluation performed only if differential is requested. Performed By: #### 1 68043, 7118844, 739677, 799088, 209253, 673724 ####[facility] Myaficsn01824 [place], [place] [address]) [phone] Director: David Doe MD Hematocrit (HCT) 39.0 % Normal 36.0-46.0 [facility] Comment on above: Performed By: #### 1 24954, 1830083, 377569, 177884, 151069, 643610 ####[facility] Qyelyntu67132 [place] [address] Medical Director: David Doe MD Hemoglobin mass conc (Bld) 13.1 g/dL Normal 12.0-16.0 [facility] Comment on above: Performed By: #### 1 49569, 0136542, 571664, 453824, 462763, 169906 ####[facility] [address]jfw[address]qwx[address] [place] [address] Medical Director: David Doe MD MCH 27.3 pg Normal 27.0-34.0 [facility] Comment on above: Performed By: #### 1 69256, 5010162, 945166, 397435, 296506, 047188 ####[facility] [address]rbfgom[address] [place] [address] Medical Director: David Doe MD MCHC mass conc (RBC) 33.6 g/dL Normal 32.0-37.0 [facility] Comment on above: Performed By: #### 1 59990, 2479632, 766101, 779781, 203109, 998677 ####[facility] [address]wrah[address]xt[address] [place], [place] [address]) [phone] Director: David Doe MD MCV 81.3 fL Normal 80.0-100.0 [facility] Comment on above: Performed By: #### 1 72482, 5888634, 885005, 095343, 313252, 188842 ####[facility] Fhbsniie22075 [place], [place] [address]) 220-2890Medical Director: David Doe MD Nucleated RBC% 0 /100WC Normal [facility] Comment on above: Performed By: #### 1 22380, 5261200, 278732, 477886, 080168, 902314 ####[facility] Wtvdncoq59383 [place] [address] Medical Director: David Doe MD Platelet mean volume (PMV) 9.4 fL Normal 7.4-10.4 [facility] Comment on above: Performed By: #### 1 22432, 5547417, 431229, 916559, 483046, 301395 ####[facility] [address]nvrfue[address]227 [place] [address] Medical Director: David Doe MD Platelets 238 x1000 Normal 150-450 [facility] Comment on above: Performed By: #### 1 16641, 6127692, 789614, 796308, 735207, 279325 ####[facility] [address]zsddhk03903 [place] [address] Medical Director: David Doe MD WBC (Leukocytes) 9.6 10*3/uL Normal [facility] Comment on above: Performed By: #### 1 01544, 4647283, 709919, 697382, 949662, 261688 ####[facility] [address]guhn[address] [place] [address] Medical Director: David Doe MD WBC (Leukocytes) 9.6 x10 Normal 4.5-11.0 [facility] Comment on above: Performed By: #### 1 88076, 3867319, 271917, 932304, 886389, 729732 ####[facility] [address]vm[address]eqcz18971 [place] [address] Medical Director: David Doe MD PT INRon 01-04-2017 Protime Median 11.1 Second(s) Normal [facility] Comment on above: Result Comment: VERI FIED by Discern Expert. Performed By: #### 1 31848, 7362894, 915049, 956200, 343798, 044754 ####[facility] [address]qyqicpp68164 [place] [address] Medical Director: David Doe MD INR Coag RelTime (PPP) 1.0 {INR} Normal So [facility] Comment on above: Result Comment: Norm al reference range for INR on patients not on anticoagulant therapy: 0.9-1.1. General therapeutic range for patients on anticoagulant therapy: 2.0-3.5. Performed By: #### 1 87190, 2010641, 939036, 569361, 189080, 257466 ####[facility] [address]mqzp89[address] [place] [address] Medical Director: David Doe MD Protime Patient 11.3 Second(s) Normal 9.8-12.7 [facility] Comment on above: Performed By: #### 1 95532, 5650608, 635055, 380646, 151694, 136889 ####[facility] [address]uzwpm475[address] [place] [address] Medical Director: David Doe MD [...] acute fracture or joint dislocation.Technologist: HRD,KDDictated By: Milady AGUILAR MDed By: Jose Alberto AGUILAR MD Out: 01/04/17 11:49:07 Normal [facility] Vital Signs Date Time Vital Sign Value Performing Clinician Facility 01-23-2025 09:44-0400 Body mass index (BMI) [Ratio] 43.35 kg/m2 Latasha KULKARNI Work Phone: [facility] 01-23-2025 09:44-0400 Body weight 125.56 kg Latasha KULKARNI Work Phone: [facility] 01-23-2025 09:44-0400 Diastolic blood pressure 74 mm[Hg] Latasha Waverly PA Work Phone: [facility] 01-23-2025 09:44-0400 Systolic blood pressure 122 mm[Hg] Latasha Padgett PA Work Phone: [facility] 12-27-2024 10:35-0400 Body mass index (BMI) [Ratio] 42.88 kg/m2 Latasha Waverly PA Work Phone: [facility] 12-27-2024 10:35-0400 Body weight 124.19 kg Latasha Padgett PA Work Phone: [facility] 12-27-2024 10:35-0400 Diastolic blood pressure 74 mm[Hg] Latasha Padgett PA Work Phone: [facility] 12-27-2024 10:35-0400 Systolic blood pressure 122 mm[Hg] Latasha Padgett PA Work Phone: [facility] 12-13-2024 13:51-0400 Body mass index (BMI) [Ratio] 43.07 kg/m2 Aditya Billy DO Work Phone: [facility] 12-13-2024 13:51-0400 Body weight 124.74 kg Aditya Billy DO Work Phone: [facility] 12-13-2024 13:51-0400 Diastolic blood pressure 70 mm[Hg] Aditya Billy DO Work Phone: [facility] 12-13-2024 13:51-0400 Systolic blood pressure 128 mm[Hg] Aditya Billy DO Work Phone: [facility] 11-22-2024 14:29-0400 Body mass index (BMI) [Ratio] 42.57 kg/m2 Aditya Billy DO Work Phone: [facility] 11-22-2024 14:29-0400 Body weight 123.29 kg Aditya Billy DO Work Phone: [facility] 11-22-2024 14:29-0400 Diastolic blood pressure 78 mm[Hg] Aditya Billy DO Work Phone: [facility] 11-22-2024 14:29-0400 Systolic blood pressure 128 mm[Hg] Aditya Billy DO Work Phone: [facility] 10-25-2024 09:07-0400 Body mass index (BMI) [Ratio] 41.86 kg/m2 Latasha KULKARNI Work Phone: [facility] 10-25-2024 09:07-0400 Body weight 121.22 kg Latasha Dayron PA Work Phone: [facility] 10-25-2024 09:07-0400 Diastolic blood pressure 82 mm[Hg] Latasha Bautistaey PA Work Phone: [facility] 10-25-2024 09:07-0400 Systolic blood pressure 108 mm[Hg] Latasha Padgett PA Work Phone: [facility] 09-26-2024 10:24-0400 Body mass index (BMI) [Ratio] 41.62 kg/m2 Aditya Billy DO Work Phone: [facility] 09-26-2024 10:24-0400 Body weight 120.54 kg Aditya Billy DO Work Phone: [facility] 09-26-2024 10:24-0400 Diastolic blood pressure 76 mm[Hg] Aditya Billy DO Work Phone: [facility] 09-26-2024 10:24-0400 Systolic blood pressure 124 mm[Hg] Aditya Billy DO Work Phone: [facility] 08-29-2024 09:23-0400 Body mass index (BMI) [Ratio] 41.47 kg/m2 Aditya Billy DO Work Phone: [facility] 08-29-2024 09:23-0400 Body weight 120.11 kg Aditya Billy DO Work Phone: [facility] 08-29-2024 09:23-0400 Diastolic blood pressure 66 mm[Hg] Aditya Billy DO Work Phone: [facility] 08-29-2024 09:23-0400 Systolic blood pressure 122 mm[Hg] Aditya Cervantes DO Work Phone: [facility] 06-14-2024 09:05-0500 Body mass index (BMI) [Ratio] 41.16 kg/m2 Latasha Dayron PA Work Phone: [facility] 06-14-2024 09:05-0500 Body weight 119.2 kg Latasha Waverly PA Work Phone: [facility] 06-14-2024 09:05-0500 Diastolic blood pressure 74 mm[Hg] Latasha Dayron PA Work Phone: [facility] 06-14-2024 09:05-0500 Systolic blood pressure 114 mm[Hg] Latasha Waverly PA Work Phone: [facility] 05-17-2024 08:45-0500 Body mass index (BMI) [Ratio] 41.04 kg/m2 Latasha Waverly PA Work Phone: [facility] 05-17-2024 08:45-0500 Body weight 118.84 kg Latasha Waverly PA Work Phone: [facility] 05-17-2024 08:45-0500 Diastolic blood pressure 70 mm[Hg] Latasha Dayron PA Work Phone: [facility] 05-17-2024 08:45-0500 Systolic blood pressure 118 mm[Hg] Latasha Dayron PA Work Phone: [facility] 04-18-2024 09:17-0500 Body mass index (BMI) [Ratio] 42.26 kg/m2 Latasha Dayron PA Work Phone: [facility] 04-18-2024 09:17-0500 Body weight 122.38 kg Latasha Waverly PA Work Phone: [facility] 04-18-2024 09:17-0500 Diastolic blood pressure 76 mm[Hg] Latasha Dayron PA Work Phone: [facility] 04-18-2024 09:17-0500 Systolic blood pressure 114 mm[Hg] Latasha Dayron PA Work Phone: [facility] 02-21-2024 14:13-0400 Body mass index (BMI) [Ratio] 39.47 kg/m2 Latasha Padgett PA Work Phone: [facility] 02-21-2024 14:13-0400 Body weight 114.31 kg Latasha Padgett PA Work Phone: [facility] 02-21-2024 14:13-0400 Diastolic blood pressure 74 mm[Hg] Latasha Padgett PA Work Phone: [facility] 02-21-2024 14:13-0400 Systolic blood pressure 118 mm[Hg] Latasha Padgett PA Work Phone: [facility] 07-15-2023 11:50-0500 Body mass index (BMI) [Ratio] 36.65 kg/m2 Aditya Billy DO Work Phone: [facility] 07-15-2023 11:50-0500 Body weight 106.14 kg Aditya Billy DO Work Phone: [facility] 12-04-2021 10:03-0400 Body height 173.35 cm [employer] 12-04-2021 10:03-0400 Body mass index (BMI) [Ratio] 35.22 kg/m2 [employer] 12-04-2021 10:03-0400 Body surface area Derived from formula 2.26 m2 [employer] 12-04-2021 10:03-0400 Body weight 105.83 kg [employer] 12-04-2021 10:03-0400 Diastolic blood pressure 68 mm[Hg] [employer] 12-04-2021 10:03-0400 Heart rate 68 /min [employer] 12-04-2021 10:03-0400 Systolic blood pressure 116 mm[Hg] Shona Lucio [facility] 10-15-2020 01:15-0400 Diastolic blood pressure 71 mm[Hg] Donny Andes DO Work Phone: [employer] Work Phone: 10-15-2020 01:15-0400 SaO2% (BldA) [Mass fraction] 94 % Donny Andes DO Work Phone: [employer] Work Phone: 10-15-2020 01:15-0400 Systolic blood pressure 117 mm[Hg] Donny Andes DO Work Phone: [employer] Work Phone: 10-14-2020 23:18-0400 Body temperature 97.59 [degF] Donny Andes DO Work Phone: [employer] Work Phone: 10-14-2020 23:18-0400 Heart rate 98 /min Donny Andes DO Work Phone: [employer] Work Phone: 10-14-2020 23:18-0400 Respiratory rate 18 /min Donny Andes DO Work Phone: [employer] Work Phone: 09-23-2020 08:31-0400 Body height 172.72 cm Miguel Holley [employer] Work Phone: [facility] Work Phone: 09-23-2020 08:31-0400 Body mass index (BMI) [Ratio] 40.9 kg/m2 Miguel Holley [employer] Work Phone: [facility] Work Phone: 09-23-2020 08:31-0400 Body surface area Derived from formula 2.32 m2 Miguel Holley [employer] Work Phone: [facility] Work Phone: 09-23-2020 08:31-0400 Body temperature 964 [degF] Miguel Holley CNP Work Phone: [facility] Work Phone: 09-23-2020 08:31-0400 Body weight 122.02 kg Miguel Holley CNP Work Phone: [facility] Work Phone: 09-23-2020 08:31-0400 Diastolic blood pressure 80 mm[Hg] Miguel Holley CNP Work Phone: [facility] Work Phone: 09-23-2020 08:31-0400 Heart rate 80 /min Miguel Holley CNP Work Phone: [facility] Work Phone: 09-23-2020 08:31-0400 Respiratory rate 18 /min Miguel Holley CNP Work Phone: [employer] [facility] Work Phone: 09-23-2020 08:31-0400 SaO2% (BldA) [Mass fraction] 98 % Miguel Holley CNP Work Phone: [facility] Work Phone: 09-23-2020 08:31-0400 Systolic blood pressure 126 mm[Hg] Miguel Holley CNP Work Phone: [facility] Work Phone: 04-08-2020 16:25-0500 Respiratory Rate 16 /min Miguel Starks [facility], [place] 04-08-2020 16:20-0500 Pulse (Heart Rate) 86 /min Miguel Dell [facility], [place] 04-08-2020 16:20-0500 Pulse Oximetry 98 % [facility] , [place] 04-08-2020 16:00-0500 BP Diastolic 66 mm[Hg] [facility] , [place] 04-08-2020 16:00-0500 BP Systolic 121 mm[Hg] [facility] , [place] 04-08-2020 13:23-0500 Body Temperature 98.4 [degF] Miguel Dell [facility] [place], [place] 03-19-2020 19:09-0400 BMI (Body Mass Index) 37.3 kg/m2 [facility] Work Phone: 03-19-2020 19:09-0400 Body weight 111.[address] [facility] Work Phone: 03-19-2020 19:09-0400 BSA (Body Surface Area) 2.[address] [facility] Work Phone: 03-19-2020 19:09-[address] [facility] Work Phone: 03-05-2020 08:30-0400 BMI (Body Mass Index) 37.3 kg/m2 [facility] Work Phone: 03-05-2020 08:30-0400 Body Temperature 95.4 [degF] [facility] Work Phone: 03-05-2020 08:30-0400 Body weight 111.[address] [facility] Work Phone: 03-05-2020 08:30-0400 BP Diastolic 80 mm[Hg] [facility] Work Phone: 03-05-2020 08:30-0400 BP Systolic 120 mm[Hg] [facility] Work Phone: 03-05-2020 08:30-0400 BSA (Body Surface Area) 2.[address] [facility] Work Phone: 03-05-2020 08:30-[address] [facility] Work Phone: 03-05-2020 08:30-0400 Pulse (Heart Rate) 74 /min [facility] Work Phone: 03-05-2020 08:30-0400 Pulse Oximetry 99 % [facility] Work Phone: 03-05-2020 08:30-0400 Respiratory Rate 18 /min [facility] Work Phone: 03-05-2020 08:30-0400 SaO2% (BldA) [Mass fraction] 99 % [facility] Work Phone: [facility] Work Phone: 12-05-2019 08:37-0400 BMI (Body Mass Index) 35.4 kg/m2 [facility] Work Phone: 12-05-2019 08:37-0400 Body Temperature 98.8 [degF] [facility] Work Phone: 12-05-2019 08:37-0400 Body weight 105.[address] [facility] Work Phone: 12-05-2019 08:37-0400 BP Diastolic 72 mm[Hg] [facility] Work Phone: 12-05-2019 08:37-0400 BP Systolic 116 mm[Hg] [facility] Work Phone: 12-05-2019 08:37-0400 BSA (Body Surface Area) 2.[address] [facility] Work Phone: 12-05-2019 08:37-0400 Flow Rate 0 L/min [facility] Work Phone: 12-05-2019 08:37-[address] [facility] Work Phone: 12-05-2019 08:37-0400 Inhaled Oxygen Concentration 21 % [facility] Work Phone: 12-05-2019 08:37-0400 Pulse (Heart Rate) 81 /min [facility] Work Phone: 12-05-2019 08:37-0400 Pulse Oximetry 98 % [facility] Work Phone: 12-05-2019 08:37-0400 Respiratory Rate 18 /min [facility] Work Phone: 12-05-2019 08:37-0400 SaO2% (BldA) [Mass fraction] 98 % [facility] Work Phone: [facility] Work Phone: 11-06-2019 09:02-0400 BMI (Body Mass Index) 36.2 kg/m2 [facility] Work Phone: 11-06-2019 09:02-0400 Body Temperature 95.8 [degF] [facility] Work Phone: 11-06-2019 09:02-0400 Body weight 107.[address] [facility] Work Phone: 11-06-2019 09:02-0400 BP Diastolic 80 mm[Hg] [facility] Work Phone: 11-06-2019 09:02-0400 BP Systolic 110 mm[Hg] [facility] Work Phone: 11-06-2019 09:02-0400 BSA (Body Surface Area) 2.[address] [facility] Work Phone: 11-06-2019 09:02-[address] [facility] Work Phone: 11-06-2019 09:02-0400 Pulse (Heart Rate) 94 /min [facility] Work Phone: 11-06-2019 09:02-0400 Pulse Oximetry 98 % [facility] Work Phone: 11-06-2019 09:02-0400 Respiratory Rate 18 /min [facility] Work Phone: 11-06-2019 09:02-0400 SaO2% (BldA) [Mass fraction] 98 % [facility] Work Phone: [facility] Work Phone: 10-12-2019 09:53-0400 BMI (Body Mass Index) 38.2 kg/m2 [facility] Work Phone: 10-12-2019 09:53-0400 Body Temperature 98.7 [degF] [facility] Work Phone: 10-12-2019 09:53-0400 Body weight 113.[address] [facility] Work Phone: 10-12-2019 09:53-0400 BP Diastolic 82 mm[Hg] [facility] Work Phone: 10-12-2019 09:53-0400 BP Systolic 122 mm[Hg] [facility] Work Phone: 10-12-2019 09:53-0400 BSA (Body Surface Area) 2.[address] [facility] Work Phone: 10-12-2019 09:53-0400 Flow Rate 0 L/min [facility] Work Phone: 10-12-2019 09:53-[address] [facility] Work Phone: 10-12-2019 09:53-0400 Inhaled Oxygen Concentration 21 % [facility] Work Phone: 10-12-2019 09:53-0400 Pulse (Heart Rate) 97 /min [facility] Work Phone: 10-12-2019 09:53-0400 Pulse Oximetry 98 % [facility] Work Phone: 10-12-2019 09:53-0400 Respiratory Rate 18 /min [facility] Work Phone: 10-12-2019 09:53-0400 SaO2% (BldA) [Mass fraction] 98 % [facility] Work Phone: [facility] Work Phone: 09-14-2019 08:35-0400 BMI (Body Mass Index) 37.7 kg/m2 [facility] Work Phone: 09-14-2019 08:35-0400 Body Temperature 96.6 [degF] [facility] Work Phone: 09-14-2019 08:35-0400 Body weight 112.[address] [facility] Work Phone: 09-14-2019 08:35-0400 BP Diastolic 80 mm[Hg] [facility] Work Phone: 09-14-2019 08:35-0400 BP Systolic 130 mm[Hg] [facility] Work Phone: 09-14-2019 08:35-0400 BSA (Body Surface Area) 2.[address] [facility] Work Phone: 09-14-2019 08:35-[address] [facility] Work Phone: 09-14-2019 08:35-0400 Pulse (Heart Rate) 81 /min [facility] Work Phone: 09-14-2019 08:35-0400 Pulse Oximetry 98 % [facility] Work Phone: 09-14-2019 08:35-0400 Respiratory Rate 18 /min [facility] Work Phone: 09-05-2019 10:26-0400 BMI (Body Mass Index) 37.3 kg/m2 [facility] Work Phone: 09-05-2019 10:26-0400 Body weight 111.[address] [facility] Work Phone: 09-05-2019 10:26-0400 BSA (Body Surface Area) 2.[address] [facility] Work Phone: 09-05-2019 10:26-[address] [facility] Work Phone: 08-17-2019 08:29-0400 BMI (Body Mass Index) 37.3 kg/m2 [facility] Work Phone: 08-17-2019 08:29-0400 Body Temperature 97.9 [degF] [facility] Work Phone: 08-17-2019 08:29-0400 Body weight 111.[address] [facility] Work Phone: 08-17-2019 08:29-0400 BP Diastolic 80 mm[Hg] [facility] Work Phone: 08-17-2019 08:29-0400 BP Systolic 120 mm[Hg] [facility] Work Phone: 08-17-2019 08:29-0400 BSA (Body Surface Area) 2.[address] [facility] Work Phone: 08-17-2019 08:29-[address] [facility] Work Phone: 08-17-2019 08:29-0400 Pulse (Heart Rate) 68 /min [facility] Work Phone: 08-17-2019 08:29-0400 Pulse Oximetry 98 % [facility] Work Phone: 08-17-2019 08:29-0400 Respiratory Rate 18 /min [facility] Work Phone: 07-20-2019 08:36-0500 BMI (Body Mass Index) 39 kg/m2 [facility] Work Phone: 07-20-2019 08:36-0500 Body Temperature 98.4 [degF] [facility] Work Phone: 07-20-2019 08:36-0500 Body weight 116.[address] [facility] Work Phone: 07-20-2019 08:36-0500 BP Diastolic 80 mm[Hg] [facility] Work Phone: 07-20-2019 08:36-0500 BP Systolic 120 mm[Hg] [facility] Work Phone: 07-20-2019 08:36-0500 BSA (Body Surface Area) 2.[address] [facility] Work Phone: 07-20-2019 08:36-[address] [facility] Work Phone: 07-20-2019 08:36-0500 Pulse (Heart Rate) 87 /min [facility] Work Phone: 07-20-2019 08:36-0500 Pulse Oximetry 97 % [facility] Work Phone: 07-20-2019 08:36-0500 Respiratory Rate 18 /min [facility] Work Phone: 07-06-2019 08:43-0500 BMI (Body Mass Index) 39.7 kg/m2 [facility] Work Phone: 07-06-2019 08:43-0500 Body Temperature 97.3 [degF] [facility] Work Phone: 07-06-2019 08:43-0500 Body weight 118.[address] [facility] Work Phone: 07-06-2019 08:43-0500 BP Diastolic 82 mm[Hg] [facility] Work Phone: 07-06-2019 08:43-0500 BP Systolic 122 mm[Hg] [facility] Work Phone: 07-06-2019 08:43-0500 BSA (Body Surface Area) 2.[address] [facility] Work Phone: 07-06-2019 08:43-[address] [facility] Work Phone: 07-06-2019 08:43-0500 Pulse (Heart Rate) 78 /min [facility] Work Phone: 07-06-2019 08:43-0500 Pulse Oximetry 98 % [facility] Work Phone: 07-06-2019 08:43-0500 Respiratory Rate 18 /min [facility] Work Phone: Encounters Encounter Date Encounter Type Care Provider Facility Start: 01-26-2025 End: 01-26-2025 Clinisync Result Encounter Aditya Billy DO Work Phone: [facility] Unsolicited Start: 01-26-2025 End: 01-26-2025 Clinisync Result Encounter Aditya Billy DO Work Phone: [facility] Unsolicited Start: 01-23-2025 End: 01-23-2025 Bamboo flowsheet Latasha Padgett PA Work Phone: [facility] Start: 01-23-2025 End: 01-23-2025 Bamboo flowsheet Latasha KULKARNI Work Phone: [facility] Start: 01-23-2025 End: 01-23-2025 Office outpatient visit 15 minutes Latasha KULKARNI Work Phone: [facility] Comment on above: Third trimester preg robson ([facility]); 34 weeks gestation of ([facility]) Start: 01-23-2025 End: 01-23-2025 ambulatory LATASHA PADGETT Not Available Start: 01-19-2025 End: 01-19-2025 Clinisync Result Encounter Aditya Billy DO Work Phone: [facility] Unsolicited Start: 01-19-2025 End: 01-19-2025 Clinisync Result Encounter Aditya Billy DO Work Phone: [facility] Unsolicited Start: 01-09-2025 End: 01-09-2025 Bamboo flowsheet Aditya Billy DO Work Phone: [facility] Start: 01-09-2025 End: 01-09-2025 Bamboo flowsheet Aditya Billy DO Work Phone: [facility] Start: 01-09-2025 End: 01-09-2025 Office outpatient visit 15 minutes Aditya Billy DO Work Phone: [facility] Comment on above: Third trimester preg robson ([facility]); 32 weeks gestation of ([facility]); Gestational diabetes mellitus (GDM), antepartum, gestational diabetes method of control unspecified ([facility]); Hyperglycemia during ([facility]) Start: 01-09-2025 End: 01-09-2025 ambulatory ADITYA BILLY Not Available Start: 12-27-2024 End: 12-27-2024 Bamboo flowsheet Latasha KULKARNI Work Phone: [facility] Start: 12-27-2024 End: 12-27-2024 Bamboo flowsheet Latasha KULKARNI Work Phone: [facility] Start: 12-27-2024 End: 12-27-2024 ambulatory ADITYA BILLY Not Available Start: 12-27-2024 End: 12-27-2024 Office outpatient visit 15 minutes Latasha KULKARNI Work Phone: [facility] Comment on above: Third trimester preg robson ([facility]) Start: 12-13-2024 End: 12-13-2024 ambulatory ADITYA BILLY Not Available Start: 12-13-2024 End: 12-13-2024 Office outpatient visit 15 minutes Aditya Billy DO Work Phone: [facility] Comment on above: Elevated glucose rikki erance test; History of gestational diabetes; Third trimester ([facility]); 28 weeks gestation of ([facility]); Gestational diabetes mellitus (GDM), antepartum, gestational diabetes method of control unspecified ([facility]) Start: 12-12-2024 End: 12-12-2024 Clinisync Result Encounter [...] (Primary D x); 25 weeks gestation of ([facility]); Second trimester ([facility]); History of gestational diabetes; Diabetes mellitus screening Start: 10-25-2024 End: 10-25-2024 Office outpatient visit 15 minutes Latasha KULKARNI Work Phone: [facility] Comment on above: Second trimester pre gnancy; 21 weeks gestation of Start: 10-25-2024 End: 10-25-2024 ambulatory LATASHA PADGETT Not Available Start: 10-17-2024 End: 10-30-2024 Clinisync Result Encounter Aditya Billy DO Work Phone: [facility] External Department Unsolicited Start: 10-17-2024 End: 10-30-2024 Clinisync Result Encounter Aditya Billy DO Work Phone: [facility] External Department Unsolicited Start: 10-17-2024 End: 10-17-2024 ambulatory ADITYA ANGELICA [facility]ILL[facility] Start: 10-17-2024 End: 10-17-2024 Subsequent hospital visit by physician Miguel Stewart CNP Work Phone: [facility] Start: 09-26-2024 End: 09-26-2024 Bamboo flowsheet [...] encounter procedure Aditya Billy DO Work Phone: [facility] Start: 09-26-2024 End: 09-26-2024 Periodic preventive med est patient 18-39 yrs Aditya Billy DO Work Phone: [facility] Comment on above: Screening, , for anatomic survey; Well woman exam with routine gynecological exam; STD exposure; Vaginal discharge; Second trimester ; 17 weeks gestation of Start: 08-29-2024 End: 08-29-2024 Bamboo flowsheet Aditya Billy DO Work Phone: [facility] Start: 08-29-2024 End: 08-29-2024 Bamboo flowsheet Aditya Billy DO Work Phone: [facility] Start: 08-29-2024 End: 08-29-2024 Office outpatient visit 15 minutes Aditya Billy DO Work Phone: [facility] Comment on above: First trimester [...] Result Encounter Aditya Billy DO Work Phone: [facility] External Department Unsolicited Start: 07-10-2024 End: 07-10-2024 Clinisync Result Encounter Aditya Billy DO Work Phone: [facility] Unsolicited Start: 06-14-2024 End: 06-14-2024 Bamboo flowsheet Latasha Padgett PA Work Phone: [facility] Start: 06-14-2024 End: 06-14-2024 Bamboo flowsheet Latasha Waverly PA Work Phone: [facility] Start: 06-14-2024 End: 06-14-2024 ambulatory LATASHA PADGETT Not Available Start: 06-14-2024 End: 06-14-2024 Office outpatient visit 15 minutes Latasha Padgett PA Work Phone: [facility] Comment on above: Encounter for weight management Start: 05-17-2024 End: 05-17-2024 Bamboo flowsheet Latasha Dayron PA Work Phone: [facility] Start: 05-17-2024 End: 05-17-2024 Bamboo flowsheet Latasha Waverly PA Work Phone: [facility] Start: 05-17-2024 End: 05-17-2024 Patient encounter procedure Latasha Bautistaey PA Work Phone: [facility] Comment on above: Weight gain; Encounter for weight management Start: 05-17-2024 End: 05-17-2024 ambulatory LATASHA DAYRON Not Available Start: 04-18-2024 End: 04-18-2024 Bamboo flowsheet Latasha Waverly PA Work Phone: [facility] Start: 04-18-2024 End: 04-18-2024 Bamboo flowsheet Latasha Waverly PA Work Phone: [facility] Start: 04-18-2024 End: 04-18-2024 ambulatory LATASHA DAYRON Not Available Start: 04-18-2024 End: 04-18-2024 Office [...] End: 01-01-2023 Patient encounter procedure Miguel Holley APRN - [employer] Work Phone: [email or web address] Start: 01-01-2023 End: 01-01-2023 Subsequent hospital visit by physician Miguel Holley APRN - [employer] Work Phone: [facility] Comment on above: Women's annual routi ne gynecological examination Start: 12-16-2021 End: 12-16-2021 Subsequent hospital visit by physician Miguel Holley APRN - [employer] Work Phone: [email or web address] Start: 12-04-2021 Split vc Shona estrada Other [facility] Office Start: 10-02-2021 End: 10-02-2021 Patient encounter procedure Miguel Holley APRN - [employer]ER Work Phone: [facility] Start: 10-02-2021 End: 10-02-2021 Subsequent hospital visit by physician Miguel Holley APRN - [employer] EXAMINER Work Phone: [facility] Comment on above: Women's annual routi ne gynecological examination Start: 10-14-2020 End: 10-15-2020 Emergency department patient visit Donnypatrick Hatfield DO Work Phone: [facility] Comment on above: Nausea vomiting and diarrhea (Primary Dx); Generalized abdominal pain Start: 09-23-2020 End: 09-24-2020 ambulatory MIGUEL HOLLEY [facility] Start: 09-23-2020 End: 09-23-2020 Subsequent hospital visit by physician Miguel Holley IOANA - [employer] Work Phone: [facility] Start: 09-23-2020 End: 09-23-2020 General Jammie Javier RODAS Work Phone: [facility] Work Phone: Start: 09-23-2020 End: 09-23-2020 Adult health examination Miguel Holley [employer]AMINER Work Phone: [facility] Work Phone: Start: 09-23-2020 End: 09-23-2020 [facility] visit, estab pt Miguel Holley [employer] EXAMINER Work Phone: [facility] Work Phone: Start: 04-08-2020 End: 04-08-2020 Emergency department patient visit [facility] Comment on above: COVID-19 (Primary Dx ); Fatty liver Start: 03-19-2020 End: 03-19-2020 Telemedicine consultation with patient Miguel Holley Work Phone: [facility] Work Phone: Start: 03-05-2020 End: 03-05-2020 Established patient Miguel Holley Work Phone: [facility] Work Phone: Start: 12-05-2019 End: 12-05-2019 Established patient Poly Franco Work Phone: [facility] Work Phone: Start: 11-06-2019 End: 11-06-2019 Established patient Poly Franco Work Phone: [facility] Work Phone: Start: 10-12-2019 End: 10-12-2019 Patient encounter procedure Paty Goldsmith Work Phone: [facility] Work Phone: Start: 10-12-2019 End: 10-12-2019 Established patient Poly Franco Work Phone: [facility] Work Phone: Start: 09-14-2019 End: 09-14-2019 Established patient Poly Franco Work Phone: [facility] Work Phone: Start: 09-11-2019 End: 09-11-2019 Telemedicine consultation with patient Poly Franco Work Phone: [facility] Work Phone: Start: 09-05-2019 End: 09-05-2019 Telemedicine consultation with patient Poly Franco Work Phone: [facility] Work Phone: Start: 08-17-2019 End: 09-11-2019 Telemedicine consultation with patient Poly Franco Work Phone: [facility] Work Phone: Start: 08-17-2019 End: 08-17-2019 Established patient Miguel Holley Work Phone: [facility] Work Phone: Start: 07-20-2019 End: 07-20-2019 Established patient Miguel Holley Work Phone: [facility] Work Phone: Start: 07-06-2019 End: 07-06-2019 Subsequent hospital visit by physician Jackson FORMAN [facility] Start: 07-06-2019 End: 07-06-2019 Established patient Anh Virk Work Phone: [facility] Work Phone: Start: 07-06-2019 End: 07-06-2019 New patient Allyson Floyd Work Phone: [facility] Work Phone: Start: 02-02-2019 End: 02-04-2019 Subsequent hospital visit by physician [facility] Ultrasound Room [facility] Ultrasound Comment on above: Encounter for intrau terine device placement Start: 08-21-2018 End: 08-23-2018 Patient encounter procedure [facility] Start: 01-04-2017 End: 01-04-2017 Emergency department patient visit [address] [facility] Facility:[id number] Procedures Date Procedure Procedure Detail Performing Clinician Start: 01-26-2025 US OB BPP W NON-STRESS Aditya Billy DO Work Phone: Start: 01-26-2025 US OB GROWTH Aditya Fazi o DO Work Phone: Start: 01-19-2025 US OB BPP W NON-STRESS Aditya Billy DO Work Phone: Start: 01-09-2025 Urnls dip stick/tabl et rgnt non-auto w/o micrscp Aditya Billy DO Work Phone: Start: 12-27-2024 Urnls dip stick/tabl et rgnt non-auto w/o micrscp Latasha KUKLARNI Work Phone: Start: 12-13-2024 Urnls dip stick/tabl [...] dip stick/tabl et rgnt non-auto w/o micrscp Daitya Billy DO Work Phone: Start: 01-01-2023 Microscopic observat ion [Identifier] in Cervix by Cyto stain Miguel Holley APRN - [employer] EXAMINER Work Phone: Start: 12-16-2021 Assay of blood/uric acid Dedrick Wood PA-C Work Phone: Start: 12-16-2021 C-reactive protein Robel Wood PA-C Work Phone: Start: 12-04-2021 Nerve conduction heaven dies 9-10 studies Shona Lucio Start: 10-02-2021 Microscopic observat ion [Identifier] in Cervix by Cyto stain Miguel Holley PRE PRESS PROOFER - [employer] EXAMINER Work Phone: Start: 10-15-2020 Urinalysis microscop ic [...] REFLEX TO MG FOR LOW K Donny Complexa Work Phone: Start: 10-15-2020 Hepatic function panel Donny Complexa Work Phone: Start: 09-23-2020 Most recent diastoli c blood pressure < 80 mm hg Miguel Holley [employer]AMINER Work Phone: Start: 09-23-2020 Most recent systolic blood pressure <130 mm hg Miguel Holley C[employer] EXAMINER Work Phone: Start: 09-23-2020 Pt-focused hlth risk assmt score doc stnd instrm Miguel Holley [facility] Work Phone: Start: 09-23-2020 Antibody hiv-1&hiv-2 single result Miguel Holley [employer] EXAMINER Work Phone: Start: 09-23-2020 Comprehensive metabo lic panel Miguel Holley PRE PRESS PROOFER - [employer] EXAMINER Work Phone: Start: 04-08-2020 Ct thorax w/contrast material Ninoska Marianne Work Phone: Start: 04-08-2020 [facility]: Start: 04-08-2020 Urine test visual color cmprsn meths Ninoska Marianne Work Phone: Start: 04-08-2020 Assay of troponin quantitative [facility] Work Phone: Start: 04-08-2020 Blood count complete automated [facility] Work Phone: Start: 04-08-2020 Comprehensive metabo lic panel [facility] Work Phone: Start: 04-08-2020 Natriuretic peptide [facility] Work Phone: Start: 04-08-2020 Prothrombin time [facility] Work Phone: Start: 04-08-2020 Thromboplastin time partial [...] 07-06-2019 Blood count complete auto&auto difrntl wbc Allysonheidi Floyd Work Phone: Start: 07-06-2019 Comprehensive metabo lic panel Allyson Floyd Work Phone: Start: 07-06-2019 Lipid panel Allyson Floyd Work Phone: Start: 02-02-2019 Us transvaginal Dana Akins Work Phone: Start: 02-07-2018 Microscopic observat ion [Identifier] in Cervix by Cyto stain Miguel Holley PRE PRESS PROOFER - [employer] EXAMINER Work Phone: H/O: section S/P jose carlos an section Latasha KULKARNI Work Phone: H/O: section S/P jose carlos an section Latasha KULKARNI Work Phone: NEGATED: Highlighted row has not occurred!Start: 11-06-2019 currently nursing Miguel Holley NEGATED: Highlighted row has not occurred!Start: 11-06-2019 currently Miguel Dell NEGATED: Highlighted row has not occurred!Start: 07-06-2019 reported medical history Miguel Dell Plan of Treatment Date Care Activity Detail Author Start: 01-01-2026 Screening for malign ant neoplasm of cervix Pap smear [facility] Start: 02-07-2025 End: 02-07-2025 Patient encounter procedure 02/07/2025 10:50 AM EDT Routine [facility] [address] [place] [id number] Aditya Cervantes, DO [address] [place] [address] [facility] Start: 02-06-2025 End: 02-06-2025 Patient encounter procedure 02/06/2025 10:10 AM EDT Routine [facility] [address] [place] [id number] Aditya Cervantes, DO [address] [place] [address] [facility] Start: 01-29-2025 Influenza vaccination Influenza Vacc ine (#1) [facility] Start: 01-23-2025 End: 01-23-2025 Patient encounter procedure [facility] Comment on above: Arrived Start: 01-10-2025 End: 01-10-2025 Patient encounter procedure 01/10/2025 1:00 PM EDT Routine [facility] [address] [address] Aditya Cervantes DO [address], [id number] Start: 01-09-2025 End: 07-12-2025 US biophysical profile w non stress test US biophysical profile w non stress test Imaging Routine Hyperglycemia during ([facility]) Expected: 01/09/2025 (Approximate), Expires: 07/12/2025 [facility] Work Phone: Comment on above: Expected: 01/09/2025 (Approximate), Expires: 07/12/2025 Start: 01-09-2025 End: 01-09-2025 Patient encounter procedure [facility] Comment on above: Arrived Start: 12-29-2024 Influenza vaccination Flu vacc ine (Season Ended) [facility] Start: 12-27-2024 End: 12-27-2024 Professional / ancillary services management [facility] Start: 12-27-2024 End: 12-27-2024 Patient encounter procedure 12/27/2024 10:20 AM EDT Routine [facility] [address] [phone] Latasha Padgett PA [address] [place], [place] [id number] [facility] Start: 12-13-2024 End: 12-13-2024 Patient encounter procedure 12/13/2024 1:40 PM EDT Routine [facility] [address] [facility] [place] [address] Aditya Cervantes, DO [address] [place] [address] [facility] Start: 12-06-2024 End: 12-06-2025 Measurement of glucose 3 hours after glucose challenge for glucose tolerance test Glucose tolerance, 3 hours Lab Routine Elevated glucose tolerance test Expected: 12/06/2024 (Approximate), Expires: 12/06/2025 [facility] Work Phone: Comment on above: Expected: 12/06/2024 (Approximate), Expires: 12/06/2025 Start: 11-22-2024 End: 11-22-2025 12 lead ECG ECG 12 lead unit performed ECG Routine Dizziness Expected: 11/22/2024 (Approximate), Expires: 11/22/2025 [facility] Work Phone: Comment on above: Expected: 11/22/2024 (Approximate), Expires: 11/22/2025 Start: 11-22-2024 End: 11-22-2025 CBC panel - Blood by Automated count CBC Lab Routine Diabetes mellitus screening Expected: 11/22/2024 (Approximate), Expires: 11/22/2025 [facility] Work Phone: Comment on above: Expected: 11/22/2024 (Approximate), Expires: 11/22/2025 Start: 11-22-2024 End: 11-22-2025 Measurement of glucose 1 hour after glucose challenge for glucose tolerance test Glucose tolerance, 1 hour Lab Routine Diabetes mellitus screening Expected: 11/22/2024 (Approximate), Expires: 11/22/2025 [facility] Comment on above: Expected: 11/22/2024 (Approximate), Expires: 11/22/2025 Start: 11-22-2024 End: 11-22-2024 Patient encounter procedure 11/22/2024 1:50 PM EDT Routine [facility] [address] [place] [phone] Aditya Cervantes, DO [address] [place] [address] [facility] Start: 10-25-2024 End: 10-25-2024 Patient encounter procedure 10/25/2024 9:30 AM EDT Routine [facility] [address] [place] [phone] Latasha Padgett PA [address] [place] [address] [facility] Start: 10-25-2024 End: 10-25-2024 Professional / ancillary services management 10/25/2024 8:00 AM EDT Ancillary Procedure [facility] [address] [facility] [place] [phone] [facility] Start: 10-02-2024 Screening for malign ant neoplasm of cervix Pap smear [facility] Start: 09-26-2024 End: 11-26-2024 Alpha fetoprotein, [...] Routine [facility] [address] [place] [phone] Aditya Cervantes DO [address] [place] [address] [facility] Start: 08-29-2024 End: 08-29-2024 Patient encounter procedure 08/29/2024 9:20 AM EDT Routine [facility] [address] [place] [phone] Aditya Cervantes DO [address] [facility] [place] [address] Arrived [facility] Comment on above: Arrived Start: 08-04-2024 End: 08-04-2024 ambulatory 08/04/2024 9:00 AM EST Initial [facility] [address] [address] [facility] Start: 08-04-2024 End: 08-04-2024 Professional / ancillary services management 08/04/2024 8:30 AM EST Ancillary Procedure [facility] [address] [place] [phone] [facility] Start: 07-12-2024 End: 07-12-2024 Patient encounter procedure 07/12/2024 8:30 AM EST Office Visit [facility] [address] [phone] Latasha Padgett, PA [address] [facility] [place] [address] [facility] Start: 05-17-2024 End: 05-17-2024 Patient encounter procedure [facility] Comment on above: Arrived Start: 05-10-2024 End: 05-10-2024 Patient encounter procedure 05/10/2024 8:40 AM EST Office Visit [facility] [address] [phone] Latasha Padgett, PA [address] [facility] [place] [address] [facility] Start: 01-30-2024 COVID-19 Vaccine ( season) COVID-19 Vaccine ( season) [facility] Start: 01-30-2024 Influenza vaccination Influenza Vacc ine (#1) [facility] Start: 08-19-2023 End: 08-19-2023 Patient encounter procedure 08/19/2023 11:00 AM EDT Routine [facility] [address] [facility] [place] [address] Latasha Padgett PA [address] [facility] [address] [place], [place] [phone] [facility] Start: 08-19-2023 End: 08-19-2023 Professional / ancillary services management 08/19/2023 10:00 AM EDT Ancillary Procedure [facility] [address] [facility] [place] [address] [facility] Start: 01-20-2023 End: 01-20-2023 Admission to same day surgery center 01/20/2023 Surgery IP Unit Mychal Nichols MD [address] [place] [address] HYSTEROSCOPY - IUD REMOVAL [facility] Comment on above: HYSTEROSCOPY - IUD R EMOVAL Start: 01-20-2023 End: 01-20-2023 Hysteroscopy removal impacted foreign body HYSTEROSCOPY Intrauterine contraceptive device threads lost, initial encounter 01/20/2023 11:10 AM EDT [facility] Start: 01-20-2023 Subsequent hospital visit by physician 01/20/2023 Hospital Encounter IP Unit Mychal Nichols MD [address] [place] [id number] [facility] Start: 12-29-2022 Influenza vaccination Flu vaccine (# 1) [facility] Start: 04-27-2022 End: 04-27-2022 Patient encounter procedure [facility] Start: 01-29-2022 Influenza vaccination [facility] Start: 02-07-2021 Cervical cancer screen Cervical canc er screen [facility] [place], [place] Start: 02-07-2021 Screening for malign ant neoplasm of cervix [facility] Start: 01-29-2021 Influenza vaccination Flu vacc ine (Season Ended) [facility] Work Phone: Start: 09-30-2020 CBC W Auto Different ial panel - Blood [facility] Start: 09-30-2020 Lipid 1996 panel - Serum or Plasma LIPID PROFILE [facility] Start: 09-23-2020 Psychiatry Health [facility] Work Phone: Comment on above: Note: Please make a referral to: Start: 03-26-2020 SARS-CoV-2, KAILA [facility] Work Phone: Start: 03-19-2020 COVID Drive up Testing [facility] Work Phone: Start: 02-06-2020 Medical Establ ished Patient [facility] Work Phone: Start: 01-30-2020 Influenza vaccination Flu vaccine (# 1) [place], [place] Start: 11-09-2019 Medical Establ ished Patient [facility] Work Phone: Start: 10-11-2019 Medical Establ ished Patient [facility] Work Phone: Start: 09-14-2019 Medical Establ ished Patient [facility] Work Phone: Start: 08-17-2019 Medical Establ ished Patient [facility] Work Phone: Start: 07-20-2019 Medical Establ ished Patient [facility] Work Phone: Start: 07-13-2019 Lipid 1996 panel [facility] Work Phone: Start: 02-14-2019 End: 02-14-2019 Office Visit 02/14/2019 Office Visit Obstetrics and Gynecology Pilar Marie APRN - ANNETTA [address] [place] [address] [phone] [facility] RIGHT OF [address] AGENT Start: 02-07-2019 Chlamydia screen Chlamydia screen [place], [place] Start: 02-07-2019 Screening for Chlamy valentino trachomatis Chlamydia screen [facility] Start: 01-29-2019 Influenza vaccination Flu vaccine (# 1) [place], [place] Start: 10-29-2017 DTaP/Tdap/Td vaccine (2 - Td or Tdap) DTaP/Tdap/Td vaccine (2 - Td or Tdap) [facility] Start: 10-29-2017 DTaP/Tdap/Td vaccine (2 - Td) DTaP/Tdap/Td vaccine (2 - Td) [place] Start: 2015 Hepatitis B vaccine (1 of 3 - 19+ 3-dose series) Hepatitis B vaccine (1 of 3 - 19+ 3-dose series) [facility] Start: 2014 Hepatitis C screening Hepatitis C sc reen [facility] Start: 2012 COVID-19 Vaccine (1) COVID-19 Vaccin e (1) [facility] Work Phone: Start: 2011 HIV screen HIV screen [place], [place] Start: 2011 HIV screening HIV screen [facility] Start: 2011 HPV vaccine (1 - Fem shiela 3-dose series) HPV vaccine (1 - Female 3-dose series) [place] Start: 2009 Varicella Vaccine (1 of 2 - 13+ 2-dose series) Varicella Vaccine (1 of 2 - 13+ 2-dose series) [facility] Start: 2008 COVID-19 Vaccine (1) COVID-19 Vaccin e (1) [facility] Phone: Start: 2008 Depression Screen Depression Screen [facility] Start: 2007 HPV vaccine (1 - 2-d ose series) HPV vaccine (1 - 2-dose series) [facility] Start: 2007 HPV vaccine (1 - Fem shiela 2-dose series) HPV vaccine (1 - Female 2-dose series) [facility] Phone: Start: 2001 COVID-19 Vaccine (1) COVID-19 Vaccin e (1) [facility] Start: 1997 Varicella vaccine (1 of 2 - 2-dose childhood series) Varicella vaccine (1 of 2 - 2-dose childhood series) [employer] Start: 1996 COVID-19 Vaccine (#1) COVID-19 Vacci ne (#1) [employer] Start: 1996 Hepatitis C screening Hepatitis C sc reen [employer] Phone: End: 10-17-2024 Alpha Fetoprotein, Maternal [employer] Phone: Comment on above: Once for 1 Occurrenc es starting 10/17/2024 until 10/17/2024 End: 12-16-2021 GLENNY Screen with [employer] Phone: Comment on above: Once for 1 Occurrenc es starting 12/16/2021 until 12/16/2021 CHLAMYDIA TRACHOMATI S (GENITO/STI) CHLAMYDIA TRACHOMATIS (GENITO/STI) Lab Routine STD exposure Vaginal discharge Ordered: 09/26/2024 [facility] [email or web address] Comment on above: Ordered: 09/26/2024 Cytology Cervical or vaginal smear or scraping study Pap Smear Pathology and Cytology Routine Well woman exam with routine gynecological exam Ordered: 09/26/2024 [facility] Comment on above: Ordered: 09/26/2024 End: 10-02-2021 Cytopathology procedure, preparation of smear, genital source PAP SMEAR Lab Routine Women's annual routine gynecological examination 1 Occurrences starting 10/02/2021 until 10/02/2021 [employer] Phone: Comment on above: 1 Occurrences starti ng 10/02/2021 until 10/02/2021 End: 01-01-2023 Cytopathology procedure, preparation of smear, genital source PAP SMEAR Lab Routine Women's annual routine gynecological examination 1 Occurrences starting 01/01/2023 until 01/01/2023 [employer] Phone: Comment on above: 1 Occurrences starti ng 01/01/2023 until 01/01/2023 End: 12-16-2021 HLA-B27 Antigen [employer] Phone: Comment on above: Once for 1 Occurrenc es starting 12/16/2021 until 12/16/2021 End: 07-06-2019 Insulin, free Insulin, free Lab Routine Once for 1 Occurrences starting 07/06/2019 until 07/06/2019 [employer] Phone: Comment on above: Once for 1 Occurrenc es starting 07/06/2019 until 07/06/2019 Insulin, free Insulin, free La b Routine 07/06/2019 9:31 AM EST [employer] Work Phone: End: 12-16-2021 Lyme Ab [employer] Work Phone: Comment on above: Once for 1 Occurrenc es starting 12/16/2021 until 12/16/2021 Neisseria gonorrhoea e DNA [Presence] in Unspecified specimen by KAILA with probe detection Neisseria gonorrhea DNA probe, direct Lab Routine STD exposure Vaginal discharge Ordered: 09/26/2024 [employer] Comment on above: Ordered: 09/26/2024 SURESWAB(R) ADVANCED VAGINITIS PLUS, TMA SURESWAB(R) ADVANCED VAGINITIS PLUS, TMA Pathology and Cytology Routine STD exposure Vaginal discharge Ordered: 09/26/2024 [employer] Work Phone: Comment on above: Ordered: 09/26/2024 End: 02-13-2025 US for US OB follow up transabdominal approach Imaging Routine Elevated glucose tolerance test Gestational diabetes mellitus (GDM), antepartum, gestational diabetes method of control unspecified ([facility]) q4 weeks for 4 Occurrences starting 12/13/2024 until 02/13/2025 [facility] [email or web address] Comment on above: q4 weeks for 4 Occur rences starting 12/13/2024 until 02/13/2025 Immunizations Immunization Date Immunization Notes Care Provider Em de la cruz 10-30-2007 tetanus toxoid, redu katelyn diphtheria toxoid, and acellular pertussis vaccine, adsorbed M[facility] Room [employer] Payers Date Payer Category Payer Medicaid [id number] 2023 Medicaid [id number] 2023 Unknown [employer] [facility] [place] [employer] [id number] 2023-Present [address] [address] [place] [address] [id number] 2022 Unknown [employer] [place] [address] [id number] 2022-Present [address] [place] [address] [id number] 2018 Unknown [id number] [id number] 99.5.10.6.[address] [facility] [address] xxxxxxxxxxxx 2016-Present [phone] [address] [place] [address] xxxxxxxxxxxx [id number] .[id number] 1996 Unknown [id number] 2.16.840.1.467852.3.579.2.175 1996 Unknown [id number] 2.16.840.1.147127.3.579.2.173 1996 Unknown [id number] 2.16.840.1.939547.3.579.2.125 9 1996 Unknown [id number] 2.16.840.1.642438.3.579.2.125 9 1996 Unknown [id number] 2.16.840.1.746231.3.579.2.125 9 1996 Unknown [id number] 2.16.840.1.565060.3.579.2.125 9 1996 Unknown [id number] 2.16.840.1.251649.3.579.2.125 9 1996 Unknown [id number] 2.16.840.1.581432.3.579.2.125 9 1996 Unknown [id number] 2.16.840.1.820470.3.579.2.125 9 1996 Unknown [id number] 2.16.840.1.906664.3.579.2.125 9 1996 Unknown [id number] 2.16.840.1.630580.3.579.2.125 9 1996 Unknown [id number] 2.16.840.1.739267.3.579.2.125 9 1996 Unknown [id number] 2.16.840.1.643396.3.579.2.125 9 1996 Unknown [id number] 2.16.840.1.707271.3.579.2.125 9 1996 Unknown [id number] 2.16.840.1.073607.3.579.2.125 9 1996 Unknown [id number] 2.16.840.1.128955.3.579.2.125 9 1996 Unknown [id number] 2.16.840.1.007879.3.579.2.125 9 1996 Unknown [id number] 2.16.840.1.632319.3.579.2.125 9 Unknown [id number] 2.16.840.1.383506.3.441 Social History Date Type Detail Facility Assertion [facility] Work Phone: Assertion Emotional stress (finding) [facility] Work Phone: Tobacco smoking status Unknown if ever smoked [facility] Assertion Sexually active (finding) [facility] Work Phone: Assertion Gender identity finding (finding) [facility] Work Phone: Assertion Finding of sexua l orientation (finding) [facility] Work Phone: Start: 02-07-2018 End: 01-06-2023 Tobacco smoking status NHIS Never smoker [employer] Start: 02-07-2018 End: 01-20-2023 Alcohol intake Current drinker of alcohol (finding) [employer] Work Phone: Start: 12-12-2015 Alcohol Comment occassionally [employer] Start: 1996 Sex Assigned At Not on file [employer] Start: 04-08-2020 End: 01-06-2023 Tobacco use and exposure Never used [employer] Exposure to SARS-CoV-2 (event) Not sure [employer] Start: 02-07-2018 End: 01-20-2023 Alcohol intake Yes [employer] Assertion Family illness (situation) [facility] Work Phone: Assertion Single person (finding) [facility] Work Phone: Start: *Tobacco [place] [employer] [facility] Start: 04-15-2023 [facility] Start: 01-20-2023 History of Social function [facility] [employer] Start: 10-12-2013 Sex Female (finding) [facility] [employer] NEGATED: Highlighted row Assertion Exposure to pollution (event) [facility] Work Phone: NEGATED: Highlighted row Assertion Tobacco user (finding) [facility] Work Phone: NEGATED: Highlighted row Assertion Current drinker of alcohol (finding) [facility] Work Phone: NEGATED: Highlighted row Assertion Finding relating to drug misuse behavior (finding) [facility] Work Phone: Mental Status Date Assessment Result Facility Cognitive function Cognitive fun ctioning was normal Cognitive function finding (finding) [facility] Work Phone: Clinical Notes 11-06-2019 to 01-23-2025 CAYLA Kwok - 01/23/2025 9:50 AM Leatha Cervantes DO - 01/09/2025 11:10 AM CAYLA Bartlett - 12/27/2024 10:20 AM NUVIARaulcarissa LetitiaJOSE - 12/13/2024 1:40 PM CAYLA Bartlett - [...] Excessive growth affecting management of mother, antepartum ([facility]) 12/06/2023 Third trimester ([facility]) 12/06/2023 No Additional Past Medical History [...] ASSESSMENT & PLAN ICD-10-CM 1. Third trimester ([facility]) Z34.93 CANCELED: POCT urinalysis dipstick manually resulted 2. 34 weeks gestation of ([facility]) Z3A.34 CANCELED: POCT urinalysis dipstick manually [...] of: CAYLA Kwok documented in this encounter [facility] 01-09-2025 History of Presen t illness Narrative [...] Excessive growth affecting management of mother, antepartum ([facility]) 12/06/2023 Third trimester ([facility]) 12/06/2023 No Additional Past Medical History [...] nursing note reviewed. Exam conducted with a industrial engineering professor present. Vitals: Estimated body mass index is 42.88 kg/m as calculated from the following: Height as of 24: 5' 7 . Weight as of 12/27/24: 273 lb 12.8 oz. BP: No LMP recorded. Patient is . Assessment/Plan Encounter Diagnosis: ICD-10-CM 1. Third trimester ([facility]) Z34.93 POCT urinalysis dipstick manually resulted 2. 32 weeks gestation of ([facility]) Z3A.32 3. Gestational diabetes mellitus (GDM), antepartum, gestational diabetes method of control unspecified ([facility]) O24.419 4. Hyperglycemia during ([facility]) O99.810 US biophysical profile w non [...] Aditya Cervantes DO documented in this encounter [facility] 12-27-2024 History of Presen t illness [...] Excessive growth affecting management of mother, antepartum ([facility]) 12/06/2023 Third trimester ([facility]) 12/06/2023 No Additional Past Medical History [...] nursing note reviewed. Exam conducted with a industrial engineering professor present. Vitals: Estimated body mass index is 42.88 kg/m as calculated from the following: Height as of 24: 5' 7 . Weight as of this encounter: 273 lb 12.8 oz. BP: 122/74 No LMP recorded. Patient is . ASSESSMENT & PLAN ICD-10-CM 1. Third trimester ([facility]) Z34.93 POCT urinalysis dipstick manually resulted [...] routine OB appointment. documented in this encounter [facility] 12-13-2024 History of Presen t illness Narrative [...] Excessive growth affecting management of mother, antepartum ([facility]) 12/06/2023 Third trimester ([facility]) 12/06/2023 No Additional Past Medical History [...] of gestational diabetes Z86.32 3. Third trimester ([facility]) Z34.93 POCT urinalysis dipstick manually resulted 4. 28 weeks gestation of ([facility]) Z3A.28 POCT urinalysis dipstick manually resulted Return [...] Aditya Cervantes DO documented in this encounter [facility] 11-22-2024 History of Presen t illness [...] Excessive growth affecting management of mother, antepartum ([facility]) 12/06/2023 Third trimester ([facility]) 12/06/2023 No Additional Past Medical History [...] PLAN ICD-10-CM 1. 25 weeks gestation of ([facility]) Z3A.25 POCT urinalysis dipstick manually resulted 2. Second trimester ([facility]) Z34.92 POCT urinalysis dipstick manually resulted 3. [...] week for routine OB appointment. Documented by CYALA Kwok on behalf of: Aditya Cervantes DO documented in this encounter [facility] 10-25-2024 History of Presen t illness [...] of: CAYLA Kwok documented in this encounter [facility] 09-26-2024 History of Presen t illness [...] nursing note reviewed. Exam conducted with a industrial engineering professor present. Vitals: Estimated body mass index is [...] Aditya Cervantes DO documented in this encounter [facility] 08-29-2024 History of Presen t illness Narrative Reason for Appointment: Patient ID: Estefania Cdeeño is a 29 y.o. female who presents [...] nursing note reviewed. Exam conducted with a industrial engineering professor present. Vitals: Estimated body mass index is [...] or undercooked meat, and stay away from [facility]. Patient has been consulted regarding any further do's and don'ts of . Patient voiced understanding and all questions and concerns were answered. Orders Placed This Encounter Procedures POCT urinalysis dipstick manually resulted Follow Up: Patient is to return in 4 weeks for routine OB appointment. Documented by Lindsey Dong LPN on behalf of: Aditya Cervantes DO documented in this encounter [facility] 06-14-2024 History of Presen t illness [...] of: CAYLA Kwok documented in this encounter [facility] 05-17-2024 History of Presen t illness [...] of CAYLA Kwok documented in this encounter [facility] 04-18-2024 History of Presen t illness [...] of: CAYLA Kwok documented in this encounter [facility] 02-21-2024 History of Presen t illness [...] of: CAYLA Kwok documented in this encounter [facility] 07-15-2023 History of Presen t illness [...] Aditya Cervantes DO documented in this encounter [facility] 09-23-2020 Evaluation note Includes: Assessments for all patient encounters Findings Anxiety disorder NOS [facility] with Jammie RODAS 09/23/2020 Assessment of visit for: screening for human immunodeficiency virus Medical Established Patient with Miguel Holley [facility] 09/23/2020 Diabetes Risk Test Score was three score 09/23/2020 Medical Established Patient with Miguel Holley [facility] 09/23/2020 Morbid obesity Medical Established Patient with Miguel Holley [facility] 09/23/2020 Routine adult history and physical (18-64 yrs) without abnormal findings Medical Established Patient with Miguel Holley [facility] 09/23/2020 Z68.41 - Body mass index [BMI]40.0-44.9, adult Medical Established Patient with Miguel oHlley [facility] 09/23/2020 Cough Telemedicine Establi sted Patient with Miguel Holley [facility] 03/19/2020 Exposure to a viral disease Telemedicine Establisted Patient with Miguel Holley [facility] 03/19/2020 Obesity due to excess calories Telemedic ine Establisted Patient with Miguel Holley [facility] 03/19/2020 Z68.37 - Body mass index [BM I] 37.0-37.9, adult Telemedicine Establisted Patient with Miguel Holley [facility] 03/19/2020 Obesity due to excess calories Medical E stablished Patient with Miguel Holley [facility] 03/05/2020 Z68.37 - Body mass index [BM I] 37.0-37.9, adult Medical Established Patient with Miguel Holley [facility] 03/05/2020 Obesity due to excess calories Medical E stablished Patient with Poly Salvador [facility] 12/05/2019 R21 - Rash and other nonspecific skin eruption Medical Established Patient with Poly Salvador [facility] 12/05/2019 Z68.35 - Body mass index (BM I) 35.0-35.9, adult Medical Established Patient with Poly Salvador [facility] 12/05/2019 Obesity due to excess calories Medical E stablished Patient with Poly Salvador [facility] 11/06/2019 Z68.36 - Body mass index (BM I) 36.0-36.9, adult Medical Established Patient with Poly Franco [facility] 11/06/2019 Obesity due to excess calories Medical E stablished Patient with Poly Franco [employer] 10/12/2019 Z68.38 - Body mass index (BM I) 38.0-38.9, adult Medical Established Patient with Poly Wagonerle [facility] 10/12/2019 L25.5 - Unspecified contact dermatitis due to plants, except food Medical Established Patient with Poly Wagonerle [employer] 09/14/2019 Obesity due to excess calories Medical E stablished Patient with Polykamryn Wagonerle [facility] 09/14/2019 Z68.37 - Body mass index (BM I) 37.0-37.9, adult Medical Established Patient with Poly Franco [employer] 09/14/2019 L25.5 - Unspecified contact dermatitis due to plants, except food Telemedicine with Poly Franco [facility] 09/11/2019 Obesity due to excess calories Telemedic ine with Poly Franco [facility] 09/11/2019 Z68.37 - Body mass index (BM I) 37.0-37.9, [facility] Dermatitis due to contact wi th poison spencer Telemedicine with Poly Franco [facility] 09/05/2019 Obesity due to excess calories Telemedic ine with Poly Franco [facility] 09/05/2019 Z68.37 - Body mass index (BM I) 37.0-37.9, adult Telemedicine with Poly Franco [facility] 09/05/2019 Obesity due to excess calories Medical E stablished Patient with Miguel Holley [facility] 08/17/2019 Z68.37 - Body mass index (BM I) 37.0-37.9, adult Medical Established Patient with Miguel Dell [facility] 08/17/2019 Generalized anxiety disorder BH Establis hed Patient with Anh VIDAL 07/06/2019 Anxiety disorder NOS Medical New Patient with Allyson Owen [employer] 07/06/2019 Depression Medical New Patient with Allyson Owen [employer] 07/06/2019 Diabetes Risk Test Score was one score Medical New Patient with Allyson Owen [employer] 07/06/2019 Idiopathic insomnia Medical New Patient with Allyson Everett [employer] 07/06/2019 Obesity due to excess calories Medical N ew Patient with Allyson Owen [employer] 07/06/2019 Z68.39 - Body mass index (BM I) 39.0-39.9 adult Medical New Patient with Allyson Floyd [employer] 07/06/2019 [facility] Work Phone: [phone] 561-598106-08-2020 History general Narrative - Reported Includes: Medical History in patient's chart Description Last Updated Not currently nursing 11/06/2019 Not 11/06/2019 No reported medical history or no signif icant history 07/06/2019 [facility] Work Phone: Evaluation note Includes: Assessments for all patient encounters Findings Encounter Date Assessment of visit for: cristóbal montoya for human immunodeficiency virus Medical Established Patient with Miguel Holley [facility] 09/23/2020 Diabetes Risk Test Score was three score 09/23/2020 Medical Established Patient with Miguel Holley [facility] 09/23/2020 Morbid obesity Medical Established Patient with Miguel Holley [facility] 09/23/2020 Routine adult history and ph ysical (18-64 yrs) without abnormal findings Medical Established Patient with Miguel Holley [facility] 09/23/2020 Z68.41 - Body mass index [BMI]40.0-44.9, adult Medical Established Patient with Miguel Holley [facility] 09/23/2020 Cough Telemedicine Establi sted Patient with Miguel Holley [facility] 03/19/2020 Exposure to a viral disease Telemedicine Establisted Patient with Miguel Holley [facility] 03/19/2020 Obesity due to excess calories Telemedic ine Establisted Patient with Miguel Holley [facility] 03/19/2020 Z68.37 - Body mass index [BM I] 37.0-37.9, adult Telemedicine Establisted Patient with Miguel Holley [facility] 03/19/2020 Obesity due to excess calories Medical E stablished Patient with Miguel Holley [facility] 03/05/2020 Z68.37 - Body mass index [BM I] 37.0-37.9, adult Medical Established Patient with Miguel Holley [facility] 03/05/2020 Obesity due to excess calories Medical E stablished Patient with Poly Salvador [employer] 12/05/2019 R21 - Rash and other nonspec ific skin eruption Medical Established Patient with Poly Salvador [facility] 12/05/2019 Z68.35 - Body mass index (BM I) 35.0-35.9, adult Medical Established Patient with Poly Wagonerle [employer] 12/05/2019 Obesity due to excess calories Medical E stablished Patient with Poly Wagonerle [employer] 11/06/2019 Z68.36 - Body mass index (BM I) 36.0-36.9, adult Medical Established Patient with Poly Wagonerle [employer] 11/06/2019 Obesity due to excess calories Medical E stablished Patient with Polykamryn Wagonerle [facility] 10/12/2019 Z68.38 - Body mass index (BM I) 38.0-38.9, adult Medical Established Patient with Poly Salvador [facility] 10/12/2019 L25.5 - Unspecified contact dermatitis due to plants, except food Medical Established Patient with Poly Wagonerle [employer] 09/14/2019 Obesity due to excess calories Medical E stablished Patient with Poly Salvador [facility] 09/14/2019 Z68.37 - Body mass index (BM I) 37.0-37.9, adult Medical Established Patient with Poly Franco [facility] 09/14/2019 L25.5 - Unspecified contact dermatitis due to plants, except food Telemedicine with Poly Wagonerle [facility] 09/11/2019 Obesity due to excess calories Telemedicine with oPly Wagonerle [facility] 09/11/2019 Z68.37 - Body mass index (BM I) 37.0-37.9, adult Telemedicine with Poly Wagonerle [facility] 09/11/2019 Dermatitis due to contact wi th poison spencer Telemedicine with Poly Franco [facility] 09/05/2019 Obesity due to excess calories Telemedicine with Poly Wagonerle [facility] 09/05/2019 Z68.37 - Body mass index (BM I) 37.0-37.9, adult Telemedicine with Poly Wagonerle [facility] 09/05/2019 Obesity due to excess calories Medical E stablished Patient with Miguel Holley [facility] 08/17/2019 Z68.37 - Body mass index (BM I) 37.0-37.9, adult Medical Established Patient with Miguel Dell [facility] 08/17/2019 Generalized anxiety disorder BH Establis hed Patient with Anh VIDAL 07/06/2019 Anxiety disorder NOS Medical New Patient with Allyson Floyd [employer] 07/06/2019 Depression Medical New Patient with Allyson Everett [employer] 07/06/2019 Diabetes Risk Test Score was one score M edical New Patient with Allyson Everett [employer] 07/06/2019 Idiopathic insomnia Medical New Patient with Allyson Floyd [employer] 07/06/2019 Obesity due to excess calories Medical N ew Patient with Allyson Floyd [employer] 07/06/2019 Z68.39 - Body mass index (BM I) 39.0-39.9 adult Medical New Patient with Allyson Floyd [employer] 07/06/2019 [facility] Work Phone: Evaluation note* Diagnosis Nausea vomiting and diarrhea- Primary Nausea with vomiting Generalized abdominal pain Abdominal pain, generalized documented in this encounter [employer] Phone: evaluation note* Diagnosis Women's annual routine gynecological examination documented in this encounter [employer] Phone: evaluation note* Diagnosis Women's annual routine gynecological examination Intrauterine contraceptive device threads lost, initial encounter documented in this encounter [employer] note* Diagnosis Second trimester state, incidental documented [...] Dizziness and giddiness 25 weeks gestation of ([facility]) Second trimester ([facility]) state, incidental History of gestational diabetes Personal [...] type No History of Present Illness [facility] Work Phone: Hospital Discharge instructions* Attachments The following attachments cannot be sent through Care Everywhere. * Abdominal Pain (Barbadian) * Nausea and Vomiting ([place]badian) * Diarrhea ([place]) [facility] [employer] Work Phone: Instructions Instructions not supported for this document type No Instructions [facility] Work Phone: Patient problem outcome Narrative Includes: Evaluations & Outcomes for active Goals No Outcomes [facility] Work Phone: Reason for referral (narrative)No Reason for Referral [facility] Work Phone: Review of systems Narrative - Reported Review of Systems not supported for this document type No Review of Systems [facility] Work Phone: Summary Purpose Family History No Family History Records Found Description Last Updated Maternal history of rheumatoid arthritis 07/06/2019 Maternal history of rheumatologic disord er Fibromyalgia 07/06/2019 Maternal history of systemic lupus eryth ematosus 07/06/2019 Paternal history of type 1 diabetes marino itus 07/06/2019 Advance Directives No Advanced Directives Records FoundDocuments on File Type Date Recorded Patient Intramural Director Expl anation Advance Directives and Living Will Power of [employer] Documents on File Type Date Recorded Patient Intramural Director Expl anation ACP-Advance Directive ACP-Power of [employer] Documents on File Type Date Recorded Patient Intramural Director Expl anation Advance Directives and Living Will Power of [employer] Date Activated Date Inactivated Comments 01/20/2023 7:21 [...] NOS Medical New Patient with Allyson Floyd [facility] 07/06/2019 Depression Medical New Patient with Allyson Floyd [facility] 07/06/2019 Diabetes Risk Test Score was one score Medical New Patient with Allyson Crume [employer] 07/06/2019 Idiopathic insomnia Medical New Patient with Allyson Floyd [facility] 07/06/2019 Obesity due to excess calories Medical N ew Patient with Allyson Floyd [employer] 07/06/2019 Z68.39 - Body mass index (BM I) 39.0-39.9 adult Medical New Patient with Allyson Floyd [facility] 07/06/2019 Findings Encounter Date Obesity due to excess calories Medical E stablished Patient with Poly Franco [facility] 10/12/2019 Z68.38 - Body mass index (BM I) 38.0-38.9, adult Medical Established Patient with Poly Wagonerle [facility] 10/12/2019 L25.5 - Unspecified contact dermatitis due to plants, except food Medical Established Patient with Poly Wagonerle [facility] 09/14/2019 Obesity due to excess calories Medical E stablished Patient with Poly Wagonerle [facility] 09/14/2019 Z68.37 - Body mass index (BM I) 37.0-37.9, adult Medical Established Patient with Poly Salvador [facility] 09/14/2019 L25.5 - Unspecified contact dermatitis due to plants, except food Telemedicine with Ploy Franco [facility] 09/11/2019 Obesity due to excess calories Telemedicine with Poly Franco [facility] 09/11/2019 Z68.37 - Body mass index (BM I) 37.0-37.9, adult Telemedicine with Poly Franco [facility] 09/11/2019 Dermatitis due to contact wi th poison spencer Telemedicine with Poly Franco [facility] 09/05/2019 Obesity due to excess calories Telemedicine with Poly Franco [facility] 09/05/2019 Z68.37 - Body mass index (BM I) 37.0-37.9, adult Telemedicine with Poly Franco [facility] 09/05/2019 Obesity due to excess calories Medical E stablished Patient with Miguel Holley [facility] 08/17/2019 Z68.37 - Body mass index (BM I) 37.0-37.9, adult Medical Established Patient with Miguel Holley [employer] 08/17/2019 Generalized anxiety disorder BH Establis hed Patient with Anh RODAS-S 07/06/2019 Anxiety disorder NOS Medical New Patient with Allyson Owen [employer] 07/06/2019 Depression Medical New Patient with Allyson Owen [employer] 07/06/2019 Diabetes Risk Test Score was one score Medical New Patient with Allyson Owen [employer] 07/06/2019 Idiopathic insomnia Medical New Patient with Allyson Everett [employer] 07/06/2019 Obesity due to excess calories Medical N ew Patient with Allyson Owen [employer] 07/06/2019 Z68.39 - Body mass index (BM I) 39.0-39.9 adult Medical New Patient with Allyson Owen [employer] 07/06/2019 Findings Encounter Date Obesity due to excess calories Medical E stablished Patient with Miguel Dell [employer] 08/17/2019 Z68.37 - Body mass index (BM I) 37.0-37.9, adult Medical Established Patient with Miguel Dell [employer] 08/17/2019 Generalized anxiety disorder BH Establis hed Patient with Anh RODAS-S 07/06/2019 Anxiety disorder NOS Medical New Patient with Allyson Owen [employer] 07/06/2019 Depression Medical New Patient with Allyson Owen [employer] 07/06/2019 Diabetes Risk Test Score was one score Medical New Patient with Allyson Eveertt [employer] 07/06/2019 Idiopathic insomnia Medical New Patient with Allyson Floyd [employer] 07/06/2019 Obesity due to excess calories Medical N ew Patient with Allyson Floyd [employer] 07/06/2019 Z68.39 - Body mass index (BM I) 39.0-39.9 adult Medical New Patient with Allyson Floyd [employer] 07/06/2019 Findings Encounter Date Dermatitis due to contact wi th poison spencer Telemedicine with Poly Wagonerle [employer] 09/05/2019 Obesity due to excess calories Telemedicine with Polykamryn Wagonerle [employer] 09/05/2019 Z68.37 - Body mass index (BM I) 37.0-37.9, adult Telemedicine with Poly Wagonerle [employer] 09/05/2019 Obesity due to excess calories Medical E stablished Patient with Miguel Holley [facility] 08/17/2019 Z68.37 - Body mass index (BM I) 37.0-37.9, adult Medical Established Patient with Miguel Holley [facility] 08/17/2019 Generalized anxiety disorder BH Establis hed Patient with Anh VIDAL 07/06/2019 Anxiety disorder NOS Medical New Patient with Allyson Floyd [employer] 07/06/2019 Depression Medical New Patient with Allyson Floyd [employer] 07/06/2019 Diabetes Risk Test Score was one score Medical New Patient with Allyson Floyd [employer] 07/06/2019 Idiopathic insomnia Medical New Patient with Allyson Floyd [employer] 07/06/2019 Obesity due to excess calories Medical N ew Patient with Allyson Floyd [employer] 07/06/2019 Z68.39 - Body mass index (BM I) 39.0-39.9 adult Medical New Patient with Allyson Floyd [employer] 07/06/2019 Findings Encounter Date L25.5 - Unspecified contact dermatitis due to plants, except food Telemedicine with Poly Wagonerle [facility] 09/11/2019 Obesity due to excess calories Telemedicine with Poly Salvador [facility] 09/11/2019 Z68.37 - Body mass index (BM I) 37.0-37.9, adult Telemedicine with Poly Salvador [employer] 09/11/2019 Dermatitis due to contact wi th poison spencer Telemedicine with Poly Salvador [employer] 09/05/2019 Obesity due to excess calories Telemedicine with Poly Salvador [facility] 09/05/2019 Z68.37 - Body mass index (BM I) 37.0-37.9, adult Telemedicine with Poly Salvador [employer] 09/05/2019 Obesity due to excess calories Medical E stablished Patient with Miguel Holley [facility] 08/17/2019 Z68.37 - Body mass index (BM I) 37.0-37.9, adult Medical Established Patient with Miguel Holley [facility] 08/17/2019 Generalized anxiety disorder BH Establis hed Patient with Anh VIDAL 07/06/2019 Anxiety disorder NOS Medical New Patient with Allyson Floyd [employer] 07/06/2019 Depression Medical New Patient with Allyson Nye [employer] 07/06/2019 Diabetes Risk Test Score was one score Medical New Patient with Allyson Everett [employer] 07/06/2019 Idiopathic insomnia Medical New Patient with Allyson Nye [employer] 07/06/2019 Obesity due to excess calories Medical N ew Patient with Allyson Owen [employer] 07/06/2019 Z68.39 - Body mass index (BM I) 39.0-39.9 adult Medical New Patient with Allyson Floyd [facility] 07/06/2019 Findings Encounter Date L25.5 - Unspecified contact dermatitis due to plants, except food Medical Established Patient with Poly Wagonerle [facility] 09/14/2019 Obesity due to excess calories Medical E stablished Patient with Poly Salvador [facility] 09/14/2019 Z68.37 - Body mass index (BM I) 37.0-37.9, adult [facility] L25.5 - Unspecified contact dermatitis due to plants, except food Telemedicine with Poly Wagonerle [facility] 09/11/2019 Obesity due to excess calories [facility]2019 Z68.37 - Body mass index (BM I) 37.0-37.9, adult [facility] Dermatitis due to contact wi th poison spencer Telemedicine with Poly Salvador [facility] 09/05/2019 Obesity due to excess calories Telemedicine with Poly Salvador [facility] 09/05/2019 Z68.37 - Body mass index (BM I) 37.0-37.9, adult Telemedicine with Poly Salvador [facility] 09/05/2019 Obesity due to excess calories Medical E stablished Patient with Miguel Holley [facility] 08/17/2019 Z68.37 - Body mass index (BM I) 37.0-37.9, adult Medical Established Patient with Miguel Holley [facility] 08/17/2019 Generalized anxiety disorder BH Establis hed Patient with Anh VIDAL 07/06/2019 Anxiety disorder NOS Medical New Patient with Allyson Floyd [employer] 07/06/2019 Depression Medical New Patient with Allyson Floyd [employer] 07/06/2019 Diabetes Risk Test Score was one score Medical New Patient with Allyson Floyd [employer] 07/06/2019 Idiopathic insomnia Medical New Patient with Allyson Floyd [employer] 07/06/2019 Obesity due to excess calories Medical N ew Patient with Allyson Floyd [employer] 07/06/2019 Z68.39 - Body mass index (BM I) 39.0-39.9 adult Medical New Patient with Allyson Floyd [employer] 07/06/2019 Findings Encounter Date Obesity due to excess calories Medical E stablished Patient with Poly Franco [facility] 11/06/2019 Z68.36 - Body mass index (BM I) 36.0-36.9, adult Medical Established Patient with Poly Wagonerle [facility] 11/06/2019 Obesity due to excess calories Medical E stablished Patient with Poly Salvador [facility] 10/12/2019 Z68.38 - Body mass index (BM I) 38.0-38.9, adult Medical Established Patient with Poly Salvador [facility] 10/12/2019 L25.5 - Unspecified contact dermatitis due to plants, except food Medical Established Patient with Poly Salvador [facility] 09/14/2019 Obesity due to excess calories Medical E stablished Patient with Poly Salvador [facility] 09/14/2019 Z68.37 - Body mass index (BM I) 37.0-37.9, adult Medical Established Patient with Poly Salvador [facility] 09/14/2019 L25.5 - Unspecified contact dermatitis due to plants, except food Telemedicine with Poly Salvador [facility] 09/11/2019 Obesity due to excess calories Telemedicine with Poly Salvador [facility] 09/11/2019 Z68.37 - Body mass index (BM I) 37.0-37.9, adult Telemedicine with Poly Salvador [facility] 09/11/2019 Dermatitis due to contact wi th poison spencer Telemedicine with Poly Salvador [facility] 09/05/2019 Obesity due to excess calories Telemedicine with Poly Salvador [facility] 09/05/2019 Z68.37 - Body mass index (BM I) 37.0-37.9, adult Telemedicine with Poly Franco [employer] 09/05/2019 Obesity due to excess calories Medical E stablished Patient with Miguel Holley [employer] 08/17/2019 Z68.37 - Body mass index (BM I) 37.0-37.9, adult Medical Established Patient with Miguel Holley [employer] 08/17/2019 Generalized anxiety disorder BH Establis hed Patient with Anh RODAS-S 07/06/2019 Anxiety disorder NOS Medical New Patient with Allyson Floyd [employer] 07/06/2019 Depression Medical New Patient with Allyson Floyd [employer] 07/06/2019 Diabetes Risk Test Score was one score Medical New Patient with Allyson Nye [employer] 07/06/2019 Idiopathic insomnia Medical New Patient with Allyson Floyd [employer] 07/06/2019 Obesity due to excess calories Medical N ew Patient with Allyson Everett [employer] 07/06/2019 Z68.39 - Body mass index (BM I) 39.0-39.9 adult Medical New Patient with Allyson Floyd [employer] 07/06/2019 Findings Encounter Date Obesity due to excess calories Medical E stablished Patient with Poly Wagonerle [employer] 12/05/2019 R21 - [facility] Patient with Poly Salvador [employer] 12/05/2019 Z68.35 - Body mass index (BM I) 35.0-35.9, adult Medical Established Patient with Polykamryn Wagonerle [employer] 12/05/2019 Obesity due to excess calories Medical E stablished Patient with Poly Salvador [employer] 11/06/2019 Z68.36 - Body mass index (BM I) 36.0-36.9, adult Medical Established Patient with Poly Salvador [employer] 11/06/2019 Obesity due to excess calories Medical E stablished Patient with Poly Salvador [employer] 10/12/2019 Z68.38 - Body mass index (BM I) 38.0-38.9, adult Medical Established Patient with Poly Salvador [employer] 10/12/2019 L25.5 - Unspecified contact dermatitis due to plants, except food Medical Established Patient with Poly Salvador [employer] 09/14/2019 Obesity due to excess calories Medical E stablished Patient with Poly Salvador [employer] 09/14/2019 Z68.37 - Body mass index (BM I) 37.0-37.9, adult Medical Established Patient with Poly Salvador [employer] 09/14/2019 L25.5 - Unspecified contact dermatitis due to plants, except food Telemedicine with Poly Franco [employer] 09/11/2019 Obesity due to excess calories Telemedicine with Poly Franco [facility] 09/11/2019 Z68.37 - Body mass index (BM I) 37.0-37.9, adult Telemedicine with Poly Franco [employer] 09/11/2019 Dermatitis due to contact wi th poison spencer Telemedicine with Poly Franco [facility] 09/05/2019 Obesity due to excess calories Telemedicine with Poly Franco [facility] 09/05/2019 Z68.37 - Body mass index (BM I) 37.0-37.9, adult Telemedicine with Poly Franco [employer] 09/05/2019 Obesity due to excess calories Medical E stablished Patient with Miguel Holley [facility] 08/17/2019 Z68.37 - Body mass index (BM I) 37.0-37.9, adult Medical Established Patient with Miguel Holley [facility] 08/17/2019 Generalized anxiety disorder BH Establis hed Patient with Anh VIDAL 07/06/2019 Anxiety disorder NOS Medical New Patient with Allyson Nye [facility] 07/06/2019 Depression Medical New Patient with Allyson Everett [facility] [facility] 07[facility]/2019 Diabetes Risk Test Score was one score Medical New Patient with Allyson Owen [employer] 07/06/2019 Idiopathic insomnia Medical New Patient with Allyson Owen [employer] 07/06/2019 Obesity due to excess calories Medical N ew Patient with Allyson Owen [facility] 07/06/2019 Z68.39 - Body mass index (BM I) 39.0-39.9 adult Medical New Patient with Allyson Nye [facility] 07/06/2019 Findings Encounter Date Obesity due to excess calories Medical E stablished Patient with Miguel Holley [facility] 03/05/2020 Z68.37 - Body mass index [BM I] 37.0-37.9, adult Medical Established Patient with Miguel Holley [facility] 03/05/2020 Obesity due to excess calories Medical E stablished Patient with Poly Franco [employer] 12/05/2019 R21 - Rash and other nonspec ific skin eruption Medical Established Patient with Poly Franco [employer] 12/05/2019 Z68.35 - Body mass index (BM I) 35.0-35.9, adult Medical Established Patient with Poly Franco [employer] 12/05/2019 Obesity due to excess calories Medical E stablished Patient with Poly Wagonerle [employer] 11/06/2019 Z68.36 - Body mass index (BM I) 36.0-36.9, adult Medical Established Patient with Poly Franco [employer] 11/06/2019 Obesity due to excess calories Medical E stablished Patient with Poly Wagonerle [facility] 10/12/2019 Z68.38 - Body mass index (BM I) 38.0-38.9, adult Medical Established Patient with Poly Franco [facility] 10/12/2019 L25.5 - Unspecified contact dermatitis due to plants, except food Medical Established Patient with Poly Wagonerle [facility] 09/14/2019 Obesity due to excess calories [facility] Z68.37 - Body mass index (BM I) 37.0-37.9, adult Medical Established Patient with Poly Franco [facility] 09/14/2019 L25.5 - Unspecified contact dermatitis due to plants, except food Telemedicine with Poly Franco [facility] 09/11/2019 Obesity due to excess calories [facility] Z68.37 - Body mass index (BM I) 37.0-37.9, adult [facility]2019 Dermatitis due to contact wi th poison spencer Telemedicine with Poly Franco [facility] 09/05/2019 Obesity due to excess calories [facility] Z68.37 - Body mass index (BM I) 37.0-37.9, adult Telemedicine with Poly Franco [facility] 09/05/2019 Obesity due to excess calories Medical E stablished Patient with Miguel Holley [facility] 08/17/2019 Z68.37 - Body mass index (BM I) 37.0-37.9, adult Medical Established Patient with Miguel Dell [facility] 08/17/2019 Generalized anxiety disorder BH Establis hed Patient with Anh VIDAL 07/06/2019 Anxiety disorder NOS Medical New Patient with Allyson Everett [employer] 07/06/2019 Depression Medical New Patient with Allyson Everett [employer] 07/06/2019 Diabetes Risk Test Score was one score Medical New Patient with Allyson Everett [employer] 07/06/2019 Idiopathic insomnia Medical New Patient with Allyson Owen [employer] 07/06/2019 Obesity due to excess calories Medical N ew Patient with Allyson Floyd [employer] 07/06/2019 Z68.39 - Body mass index (BM I) 39.0-39.9 adult Medical New Patient with Allyson Floyd [employer] 07/06/2019 Findings Encounter Date Cough Telemedicine Establi sted Patient with Miguel Holley [employer] 03/19/2020 Exposure to a viral disease Telemedicine Establisted Patient with Miguel Holley [employer] 03/19/2020 Obesity due to excess calories Telemedic ine Establisted Patient with Miguel Holley [employer] 03/19/2020 Z68.37 - Body mass index [BM I] 37.0-37.9, adult Telemedicine Establisted Patient with Miguel Holley [employer] 03/19/2020 Obesity due to excess calories Medical E stablished Patient with Miguel Holley [employer] 03/05/2020 Z68.37 - Body mass index [BM I] 37.0-37.9, adult Medical Established Patient with Miguel Holley [employer] 03/05/2020 Obesity due to excess calories Medical E stablished Patient with Polykamryn Wagonerle [employer] 12/05/2019 R21 - [facility] Patient with Poly Salvador [employer] 12/05/2019 Z68.35 - Body mass index (BM I) 35.0-35.9, adult Medical Established Patient with Poly Salvador [employer] 12/05/2019 Obesity due to excess calories Medical E stablished Patient with Poly Salvador [employer] 11/06/2019 Z68.36 - Body mass index (BM I) 36.0-36.9, adult Medical Established Patient with Poly Salvador [employer] 11/06/2019 Obesity due to excess calories Medical E stablished Patient with Poly Salvador [employer] 10/12/2019 Z68.38 - Body mass index (BM I) 38.0-38.9, adult Medical Established Patient with Poly Salvador [employer] 10/12/2019 L25.5 - Unspecified contact dermatitis due to plants, except food Medical Established Patient with Poly Salvador [employer] 09/14/2019 Obesity due to excess calories Medical E stablished Patient with Poly Salvador [employer] 09/14/2019 Z68.37 - Body mass index (BM I) 37.0-37.9, adult Medical Established Patient with Poly Salvador [employer] 09/14/2019 L25.5 - Unspecified contact dermatitis due to plants, except food Telemedicine with Poly Franco [facility] 09/11/2019 Obesity due to excess calories Telemedicine with Poly Franco [facility] 09/11/2019 Z68.37 - Body mass index (BM I) 37.0-37.9, adult Telemedicine with Poly Franco [facility] 09/11/2019 Dermatitis due to contact wi th poison spencer Telemedicine with Poly Franco [facility] 09/05/2019 Obesity due to excess calories Telemedicine with Poly Franco [facility] 09/05/2019 Z68.37 - Body mass index (BM I) 37.0-37.9, adult Telemedicine with Poly Franco [facility] 09/05/2019 Obesity due to excess calories Medical E stablished Patient with Miguel Holley [facility] 08/17/2019 Z68.37 - Body mass index (BM I) 37.0-37.9, adult Medical Established Patient with Miguel Holley [facility] 08/17/2019 Generalized anxiety disorder BH Establis hed Patient with Anh VIDAL 07/06/2019 Anxiety disorder NOS Medical New Patient with Allyson Floyd [facility] 07/06/2019 Depression Medical New Patient with Allyson Floyd [facility] 07/06/2019 Diabetes Risk Test Score was one score Medical New Patient with Allyson Floyd [facility] 07/06/2019 Idiopathic insomnia Medical New Patient with Allyson Floyd [employer] 07/06/2019 Obesity due to excess calories Medical N ew Patient with Allyson Floyd [facility] 07/06/2019 Z68.39 - Body mass index (BM I) 39.0-39.9 adult Medical New Patient with Allyson Floyd [facility] 07/06/2019 Diagnosis COVID-19 Fatty liver [...] Everywhere. * Coronavirus Disease (COVID-19): General Info (Barb[place]) documented in this encounter Additional Source Comments INFORMATION SOURCE (unrecogn ized section and content) DATE CREATED AUTHOR 11/24/2017 [facility] DATE CREATED AUTHOR AUTHOR'S ORGANIZ ATION 08/26/2018 [facility] DATE CREATED AUTHOR AUTHOR'S ORGANIZ ATION 09/24/2020 [facility] DATE CREATED AUTHOR AUTHOR'S ORGANIZ ATION 10/30/2024 [facility] DATE CREATED AUTHOR AUTHOR'S ORGANIZ ATION 01/24/2025 [facility] d[facility] Specialists EPIC Evaluations & [...] US TRANSVAGINAL, NON OB Dana Akins MD [address] [place] [id number] [facility] Ultrasound [address] [place] [address] Reason Comments Emesis multiple episodes si nce [...] a comment of sent home with patient. [id number] (Not Given - Pr ovider: Maricruz [...] Care Teams (unrecognized sec tion and content) Juice Weigher Relationship Specialty Start Date End Date Miguel Holley APRN [facility] PCP - General Family Medicine 04/08/20 Juice Weigher Relationship Specialty Start Date End Date Miguel Holley APRN [facility] PCP - General Family Medicine 04/08/20 Juice Weigher Relationship Specialty Start Date End Date Miguel Holley APRN [facility] PCP - General Family Medicine 04/08/20 Juice Weigher Relationship Specialty Start Date End Date Miguel Holley APRN [facility] PCP - General Family Medicine 04/08/20 [...] BE BASED ON THE PRIMARY CLINICAL RECORDS. [employer] [facility]. provides no warranty or guarantee of the accuracy or completeness of information in this document.
[2025-02-02 09:42] VITALS: BP 120/69; PULSE 85
== END 2025-02-02 10:07 | disposition home or self-care (01) ==
LOC: US 09:04 → FBC 09:05
PROVIDERS: Visit Provider Obstetrics & Gynecology
DX: O99.810 Abnormal glucose complicating pregnancy (principal); Z3A.35 35 weeks gestation of pregnancy
CPT/HCPCS: 76818

== ENCOUNTER 2025-02-06 08:04 | Outpatient (OUT) | payer MEDICAID, SELFPAY ==
[2025-02-06 08:10] VITALS: BP 128/76; PULSE 96
--- OUTSIDE RECORDS SUMMARY | 2025-02-06 08:10 | XMS_ITS | CCD ---
Author Organization [facility] Care Team Providers Care Machinist Bench Name Role Phone NO FAMILY PHYSICIAN, 837 Unavailable Unavail able FELIX GALVAN Unavailable Unavailable Miguel Holley Primary Care Provider Jackson Haas Primary Care Provider Miguel Holley Primary Care Provider [phone] Miguel Holley Primary Care Provider Miguel Holley CNP Primary Care Provider Dell MINERAL 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 - DIANELYS, Miguel Berry Primary Care Provider MIGUEL HOLLEY Referring Unavailable MIGUEL HOLLEY Primary Care Unavailable Dell MINERAL 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 - DIANELYS, Miguel Berry Primary Care Provider Dell MINERAL 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 - DIANELYS, Miguel Berry Primary Care Provider Shona Lucio Primary Care Physician Yeison Holley MINERAL 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, Miguel Berry Primary Care Provider Dell MINERAL 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 - Miguel IVORY Primary Care Provider Unavailable [...] Hour] Drug Allergy 03-05-20 20 Wellbutrin SR [facility] Work Phone: Corticosteroids (6 sources) Triamcinolone Drug Allergy 10-14-19 14 Other (See Comments) [facility] Lisdexamfetamine (1 source) Lisdexamfetamine Drug Allergy 10-04-19 21 Vyvanse [facility] Work Phone: Naltrexone (4 sources) Naltrexone; Translations: [Naltrexone HCl 50 MG Oral Tablet] Drug Allergy 03-05-20 20 Naltrexone HCl [facility] Work Phone: (1 source) Triamcinolone; Translations: [TRIAMCINOLONE ACETONIDE] Drug Allergy 10-12-19 15 [facility] (16 sources) Triamcinolone; Translations: [Kenalog] Drug Allergy 07-06-19 20 [facility] Work Phone: (20 sources) Triamcinolone Drug Allergy 10-14-19 14 Other (See Comments), Other, Hives [place], [place] (17 sources) Poison spencer Allergy to substance 07-20-19 [facility] Work Phone: (3 sources) buPROPion; Translations: [Wellbutrin SR 100 MG Oral Tablet Extended Release 12 Hour] Drug Allergy 03-05-20 20 Wellbutrin SR [facility] Work Phone: (3 sources) Naltrexone; Translations: [Naltrexone HCl 50 MG Oral Tablet] Drug Allergy 03-05-20 20 Naltrexone HCl [facility] Work Phone: (20 sources) Other Propensity [...] Active Continuous Glucose Sensor (Dexcom G6 Sensor) [facility] (15 sources) Start: 01-18-2025 Continuous Glucose Sensor (Dexcom G6 Sensor) [facility] Indications: Elevated glucose tolerance test , 28 weeks gestation of ([facility]) , Gestational diabetes mellitus (GDM), antepartum, gestational diabetes method of control unspecified ([facility]) 1 each Every 10 (ten) days 3 each 3 01/18/2025 Active Start: 12-13-2024 Continuous Glu cose Sensor (Dexcom G6 Sensor) [facility] Indications: Elevated glucose tolerance test , 28 weeks gestation of ([facility]) , Gestational diabetes mellitus (GDM), antepartum, gestational diabetes method of control unspecified ([facility]) 1 each Every 10 (ten) days 3 each 3 12/13/2024 Active Continuous Glucose Transmitt er (Dexcom G6 transmitter) [facility] (13 sources) Start: 12-19-2024 Continuous Glu cose Transmitter (Dexcom G6 transmitter) [facility] Indications: Gestational diabetes mellitus (GDM), antepartum, gestational diabetes method of control unspecified ([facility]) Use as instructed 1 each 12/19/2024 [...] ibuprofen 800 MG tablet 01/06/2024 Active levonorgestrel 0.882175 mg/hr intrauterine system (17 sources) Progestin, Progestin-containin g Intrauterine Device Start : 07-20 Mirena (52 MG) 20 MCG/24HR Intrauterine Intrauterine device 07/20/2019 Provider: 24 hr metFORMIN hydrochloride 500 mg extended release oral tablet (16 sources) Biguanide Start : 06-14 End: 06-14 take 1 tablet by mouth every twenty-four hours at mealtime metFORMIN XR (Glucophage-XR) 500 MG 24 hr tablet Indications: Hyperglycemia during ([facility]) Take 1 tablet (500 mg) by [...] Tablet 08/17/2019 - 09/14/2019 Provider: Miguel Holley HEAD LOFT WORKER polysaccharide iron complex 391 mg oral capsule [...] supervision of normal first in first trimester ([facility]) Take 1 tablet by mouth Daily [...] MG Oral Tablet 03/05/2020 Provider: Miguel Holley HEAD LOFT WORKER Completed/Discontinued Medications Medication Drug Class(es) Dates Sig [...] Facility US OB BPP W NON-STRESS on 02-02-2025 [place] [address] Ultrasound Report Signed Patient: ESTEFANIA CEDEÑO MR#: [id number] : 1995 Acct:[id number] Age/Sex: 29 / F ADM Date: 02/02/25 Loc: US Attending Dr: Aditya Cervantes D.O. Ordering Physician: Aditya Cervantes D.O. Date of Service: 02/02/25 Procedure(s): US OB BPP w non-stress Accession Number(s): [id number] cc: Aditya Cervantes D.O.; Physician,Non-Staff Roberto [place] [address] Patient Name: ESTEFANIA CEDEÑO MRN: [id number] date: 1995 Sex: F Assigned Patient Location: [facility] Current Patient Location: Accession/Order Number: [id number] Exam Date: 02/02/2025 09:12 Report Date: 02/02/2025 10:17 At the request of: ADITYA CERVANTES DO Procedure: US OB BPP w non-stress BIOPHYSICAL PROFILE: CLINICAL INFORMATION: HYPERGLYCEMIA DURING O99.810 COMPARISON: 01/26/2025 There is a single live intrauterine gestation in cephalic presentation. The reported gestational age is 35 weeks 3 days. The heart rate measures 145 beats per minute. FINDINGS: TONE: 1 or more episodes of [...] greater than 2 cm [Y] 2/2 DEE: 14.9 cm Total score: 01/05 US/US OB BPP w non-stress IMPRESSION: NORMAL BIOPHYSICAL PROFILE Impression dictated by: Lindsey Bright M.D. 02/02/2025 10:17 AM Dictation Location: [employer] Electronically authenticated by: [id number] Y Date: 02/02/2025 10:17 Dictated By: Lindsey Bright M.D. Signed By: 02/02/25 1020 DD/ 1017 TD/TT: Clock And Watch Assembler: [facility] Radiology, Radiologestefania andrade MD - 02/02/2025 [place] [address] Ultrasound Report Signed Patient: ESTEFANIA CEDEÑO MR#: [id number] : 1995 Acct:[id number] Age/Sex: 29 / F ADM Date: 02/02/25 Loc: US Attending Dr: Aditya Cervantes D.O. Ordering Physician: Adtiya Cervantes D.O. Date of Service: 02/02/25 Procedure(s): US OB BPP w non-stress Accession Number(s): [id number] cc: Aditya Cervantes D.O.; Physician,Non-Staff Roberto [place] [address] Patient Name: ESTEFANIA CEDEÑO MRN: [facility]:[id number] date: 1995 Sex: F Assigned Patient Location: [facility] Current Patient Location: Accession/Order Number: [id number] Exam Date: 02/02/2025 09:12 Report Date: 02/02/2025 10:17 At the request of: ADITYA CERVANTES DO Procedure: US OB BPP w non-stress BIOPHYSICAL PROFILE: CLINICAL INFORMATION: HYPERGLYCEMIA DURING O99.810 COMPARISON: 01/26/2025 There is a single live intrauterine gestation in cephalic presentation. The reported gestational age is 35 weeks 3 days. The heart rate measures 145 beats per minute. FINDINGS: TONE: 1 or more episodes of [...] amniotic fluid greater than 2 cm [Y] / DEE: 14.9 cm Total score: 01/05 US/US OB BPP w non-stress IMPRESSION: NORMAL BIOPHYSICAL PROFILE Impression dictated by: Lindsey Bright M.D. 02/02/2025 10:17 AM Dictation Location: [place] [address] Electronically authenticated by: [id number] Y Date: 02/02/2025 10:17 Dictated By: Lindsey Bright M.D. Signed By: 02/02/25 1020 DD/ 1017 TD/TT: Clock And Watch Assembler: [facility] Radiology Study observation (narrative) [facility] US OB BPP W NON-STRESS Ordered By: Radiologist Radiology on 02-02-2025 [facility] Work Phone: No Panel InformationOrdered By: Radiologist Radiology on 01-26-2025 [facility] Work Phone: No Panel Informationon 01-26 Radiology Study observation (narrative) [facility] US OB BPP W NON-STRESS on 01-26-2025 [place] [address] Ultrasound Report Signed Patient: ESTEFANIA CEDEÑO MR#: [id number] : 1995 Acct:[id number] Age/Sex: 29 / F ADM Date: 01/26/25 Loc: US Attending Dr: Aditya Cervantes D.O. Ordering Physician: Aditya Cervantes D.O. Date of Service: 01/26/25 Procedure(s): US OB BPP w non-stress Accession Number(s): [id number] cc: Aditya Cervantes D.O.; Physician,Non-Staff Roberto The [place] [id number] Patient Name: ESTEFANIA CEDEÑO MRN: [id number] date: 1995 Sex: F Assigned Patient Location: [facility] Current Patient Location: Accession/Order Number: [id number] Exam Date: 01/26/2025 09:08 Report Date: 01/26/2025 [...] Bright M.D. 01/26/2025 11:00 AM Dictation Location: [employer] Electronically authenticated by: [id number] Y Date: 01/26/2025 11:00 Dictated By: Lindsey Bright M.D. Signed By: 01/26/25 1103 DD/ 1100 TD/TT: Clock And Watch Assembler: [facility] Radiology, Radiologi MD raymond - 01/26/[address] [address] Ultrasound Report Signed Patient: ESTEFANIA CEDEÑO MR#: [id number] : 1995 Acct:[id number] Age/Sex: 29 / F ADM Date: 01/26/25 Loc: US Attending Dr: Aditya Cervantes D.O. Ordering Physician: Aditya Cervantes D.O. Date of Service: 01/26/25 Procedure(s): US OB BPP w non-stress Accession Number(s): [id number] cc: Aditya Cervantes D.O.; Physician,Non-Staff Roberto The [place] [id number] Patient Name: ESTEFANIA CEDEÑO MRN: [facility]:[id number] date: 1995 Sex: F Assigned Patient Location: [facility] Current Patient Location: Accession/Order Number: [id number] Exam Date: 01/26/2025 09:08 Report Date: 01/26/2025 [...] [Y] 2/2 DEE: 12.1 cm Total score: 8 IMPRESSION: NORMAL BIOPHYSICAL PROFILE. Impression dictated by: Lindsey Bright M.D. 01/26/2025 11:00 AM Dictation Location: [place] [address] Electronically authenticated by: [id number] Y Date: 01/26/2025 11:00 Dictated By: Lindsey Bright M.D. Signed By: 01/26/25 1103 DD/ 1100 TD/TT: Clock And Watch Assembler: [facility] OB GROWTHon 01-26-2025 [place] [address] Ultrasound Report Signed Patient: ESTEFANIA CEDEÑO MR#: [id number] : 1995 Acct:[id number] Age/Sex: 29 / F ADM Date: 01/26/25 Loc: US Attending Dr: Aditya Cervantes D.O. Ordering Physician: Aditya Cervanets D.O. Date of Service: 01/26/25 Procedure(s): US OB growth Accession Number(s): [id number] cc: Aditya Cervantes D.O.; Physician,Non-Staff Roberto The [place] [id number] Patient Name: ESTEFANIA CEDEÑO MRN: [id number] date: 1995 Sex: F Assigned Patient Location: US Current Patient Location: Accession/Order Number: [id number] Exam Date: 01/26/2025 09:08 Report Date: 01/26/2025 [...] Bright M.D. 01/26/2025 11:00 AM Dictation Location: [place] [address] Electronically authenticated by: [id number] Y Date: 01/26/2025 11:00 Dictated By: Lindsey Bright M.D. Signed By: 01/26/25 1103 DD/ 1100 TD/TT: Clock And Watch Assembler: [facility] Radiology, Radiologi MD raymond - 01/26/2025 [place] [address] Ultrasound Report Signed Patient: ESTEFANIA CEDEÑO MR#: [id number] : 1995 Acct:[id number] Age/Sex: 29 / F ADM Date: 01/26/25 Loc: US Attending Dr: Aditya Cervantes D.O. Ordering Physician: Aditya Cervantes D.O. Date of Service: 01/26/25 Procedure(s): US OB growth Accession Number(s): [id number] cc: Aditya Cervantes D.O.; Physician,Non-Staff M.Aminata [place] [address] Patient Name: ESTEFANIA CEDEÑO MRN: [facility]:[id number] date: 1995 Sex: F Assigned Patient Location: Current Patient Location: Accession/Order Number: [id number] Exam Date: 01/26/2025 09:08 Report Date: 01/26/2025 [...] Bright M.D. 01/26/2025 11:00 AM Dictation Location: [place] [address] Electronically authenticated by: [id number] Y Date: 01/26/2025 11:00 Dictated By: Lindsey Bright M.D. Signed By: 01/26/25 1103 DD/ 1100 TD/TT: Clock And Watch Assembler: [employer] US OB BPP W NON-STRESS on 01-19-2025 [place] [address] Ultrasound Report Signed Patient: ESTEFANIA CEDEÑO MR#: [id number] : 1995 Acct:[id number] Age/Sex: 29 / F ADM Date: 01/19/25 Loc: US Attending Dr: Aditya Cervantes D.O. Ordering Physician: Aditya Cervantes D.O. Date of Service: 01/19/25 Procedure(s): US OB BPP w non-stress Accession Number(s): [id number] cc: Aditya Cervantes D.O.; Physician,Non-Staff Roberto The [place] [id number] Patient Name: ESTEFANIA CEDEÑO MRN: [facility]:[id number] date: 1995 Sex: F Assigned Patient Location: [facility] Current Patient Location: Accession/Order Number: [id number] Exam Date: 01/19/2025 09:10 Report Date: 01/19/2025 [...] Saez M.D. 01/19/2025 2:26 PM Dictation Location: [facility] Electronically authenticated by: [id number] Y Date: 01/19/2025 14:26 Dictated By: Carroll Saez D.O. Signed By: 01/19/25 1429 DD/ 142 TD/TT: Clock And Watch Assembler: [facility] Radiology, Radiologi MD raymond - 01/19/2025 [place] [address] Ultrasound Report Signed Patient: ESTEFANIA CEDEÑO MR#: [id number] : 1995 Acct:[id number] Age/Sex: 29 / F ADM Date: 01/19/25 Loc: US Attending Dr: Aditya Cervantes D.O. Ordering Physician: Aditya Cervantes D.O. Date of Service: 01/19/25 Procedure(s): US OB BPP w non-stress Accession Number(s): [id number] cc: Aditya Cervantes D.O.; Physician,Non-Staff Roberto The [place] [id number] Patient Name: ESTEFANIA CEDEÑO MRN: [facility]:[id number] date: 1995 Sex: F Assigned Patient Location: [facility] Current Patient Location: Accession/Order Number: [id number] Exam Date: 01/19/2025 09:10 Report Date: 01/19/2025 [...] Saez M.D. 01/19/2025 2:26 PM Dictation Location: [place] [address] Electronically authenticated by: [id number] Y Date: 01/19/2025 14:26 Dictated By: Carroll Saez D.O. Signed By: 01/19/25 1429 DD/ 25 TD/TT: Clock And Watch Assembler: [facility] Radiology Study observation (narrative) [facility] US OB BPP W NON-STRESS Ordered By: Radiologist Radiology on 01-19-2025 [facility] Work Phone: Urinalysis macro (dipstick) panel (U)on 01-09-2025 Bilirubin, UA Negative Negative - 4(70) +++ mg/dL [facility] Blood, UA Negative Negative - 50 Chuy/mcL [facility] Clarity, UA Clear [facility] Color, UA Yellow [facility] Glucose, UA Negative Negative - 2000(110) ++++ mg/dL [facility] Interpretation and review of laboratory results Normal [facility] Ketones, UA Negative Negative - 160(16) ++++ mg/dL [facility] Leukocytes, UA Negative Negative - 500+++ Sadi/mcL [facility] Nitrite, UA Negative Negative - Positive [facility] pH, UA 6.5 5 - 9 [facility] Protein, UA Negative Negative - 2000(20) ++++ mg/dL [facility] Spec Grav, UA 1.015 1 - 1.03 [facility] Urobilinogen, UA 1.0 0.2 - 12 mg/dL [facility] US OB FOLLOW UP TRANSABDOMIN AL [...] II, MD, PHD at 28-Dec-2024 08:33:[address] [facility] Normal Not Available Comment on above: Order Comment: US OB SCAN FOR GROWTH Estimated Date of Delivery: 03/06/25 Gestational Age as of 12/13/2024: 28w1d Urinalysis macro (dipstick) panel (U)on 12-27-2024 Bilirubin, UA Negative Negative - 4(70) +++ mg/dL [facility] Blood, UA Negative Negative - 50 Chuy/mcL [facility] Clarity, UA Clear [facility] Color, UA Yellow [facility] Glucose, UA Positive Negative - 1999(110) ++++ mg/dL [facility] Interpretation and review of laboratory results Abnormal [facility] Ketones, UA Negative Negative - 160(16) ++++ mg/dL [facility] Leukocytes, UA Negative Negative - 500+++ Sadi/mcL [facility] Nitrite, UA Negative Negative - Positive [facility] pH, UA 6 5 - 9 [facility] Protein, UA Positive Negative - 2000(20) ++++ mg/dL [facility] Spec Grav, UA 1.02 1 - 1.03 [facility] Urobilinogen, UA 1.0 0.2 - 12 mg/dL [facility] Urinalysis macro (dipstick) panel (U)on 12-13-2024 Bilirubin, UA Negative Negative - 4(70) +++ mg/dL [facility] Blood, UA Negative Negative - 50 Chuy/mcL [facility] Clarity, UA Clear [facility] Color, UA Yellow [facility] Glucose, UA Negative Negative - 2000(110) ++++ mg/dL [facility] Interpretation and review of laboratory results Normal [facility] Ketones, UA Negative Negative - 160(16) ++++ mg/dL [facility] Leukocytes, UA Negative Negative - 500+++ Sadi/mcL [facility] Nitrite, UA Negative Negative - Positive [facility] pH, UA 6 5 - 9 [facility] Protein, UA Negative Negative - 2000(20) ++++ mg/dL [facility] Spec Grav, UA 1.015 1 - 1.03 [facility] Urobilinogen, UA 1.0 0.2 - 12 mg/dL [facility] GLUCOSE TOLERANCE 3 HOURon 0 12-12-2024 GLUCOSE TOLERANCE 3 HOUR High mg/dL [facility] Comment on above: GLU FAST 85 (<95) Co l: 12/12/24 1118 GLU 1HR 198H (<180) Col: 12/12/24 1220 GLU 2HR 171H (<155) Col: 12/12/24 1320 GLU 3HR 74 (<140) Col: 12/12/24 1422 Interpretation and review of laboratory results Abnormal [facility] ECG 12-LEADon 12-07-2024 [place] [address] Electrocardiograph Report Signed Patient: ESTEFANIA CEDEÑO MR#: [id number] : 1995 Acct:[id number] Age/Sex: 29 / F ADM Date: 12/05/24 Loc: CR Attending Dr: Latasha Padgett Ordering Physician: Latasha Padgett Date of Service: 12/05/24 Procedure(s): ECG 12 lead Accession Number(s): [id number] cc: [facility] Test Date: 2024-12-05 Pat Name: ESTEFANIA CEDEÑO Department: Room: - Gender: Female Firefighter: : 1995 Requested By: 0923 Order Number: [id number] [place] MD: ANTON THORPE Measurements Intervals [place] Rate: 68 P: 55 PA: 116 QRS: 72 QRSD: 94 T: 14 QT: 411 QTc: 439 Interpretive Statements SINUS RHYTHM WITH SHORT PA INTERVAL NONSPECIFIC T-WAVE ABNORMALITY No previous ECG available for comparison Electronically Signed On 12-07-2024 9:00:49 EDT by ANTON THORPE Dictated By: Anton Thorpe M.D. Signed By: 12/07/2489912/07/24899 DD/ 6 TD/TT: Clock And Watch Assembler: [facility] Isma Stallworth MD - 12/07/2024 [place] [address] Electrocardiograph Report Signed Patient: ESTEFANIA CEDEÑO MR#: [id number] : 1995 Acct:[id number] Age/Sex: 29 / F ADM Date: 12/05/24 Loc: CR Attending Dr: Latasha Padgett Ordering Physician: Latasha Padgett Date of Service: 12/05/24 Procedure(s): ECG 12 lead Accession Number(s): [id number] cc: [facility] Test Date: 2024-12-05 Pat Name: ESTEFANIA CEDEÑO Department: Room: - Gender: Female Firefighter: : 1995 Requested By: 0923 Order Number: [id number] Reading MD: ANTON THORPE Measurements Intervals [place] Rate: 68 P: 55 PA: 116 QRS: 72 QRSD: 94 T: 14 QT: 411 QTc: 439 Interpretive Statements SINUS RHYTHM WITH SHORT PA INTERVAL NONSPECIFIC T-WAVE ABNORMALITY No previous ECG available for comparison Electronically Signed On 12-07-2024 9:00:49 EDT by ANTON THORPE Dictated By: Anton Thorpe M.D. Signed By: 12/07/2489912/07/24899 DD/ 6 TD/TT: Clock And Watch Assembler: [facility] ECG 12-LEADOrdered By: Radio logist Radiology on 12-07-2024 [facility] Work Phone: ALL CBC WITH AUTO DIFFon BASOPHILS ABSOLUTE AUTO 0 [facility] Basophils/100 WBC (Bld) 0.2 % 0.2 - 2.0 % [facility] Eosinophils/100 WBC (Bld) 0.6 % Low 0.9 - 7.0 % [facility] Erythrocyte distribution width (RBC) [Ratio] 13.7 % 11.0 - 15.0 % [facility] Hematocrit (Bld) [Volume fraction] 34.3 % Low 36.0 - 48.0 % [facility] Hemoglobin (Bld) [Mass/Vol] 11.5 g/dL Low 12.0 - 16.0 g/dL [facility] IMMATURE GRANULOCYTES ABS AUTO 0.08 High [facility] Immature granulocytes/100 WBC (Bld) 0.7 % High 0.0 - 0.5 % [facility] Interpretation and review of laboratory results Abnormal [facility] LYMPHOCYTES ABSOLUTE AUTO 2.1 [facility] Lymphocytes/100 WBC (Bld) 18.9 % Low 20.5 - 60.0 % [facility] MCH (RBC) [Entitic mass] 27.8 pg 26.7 - 34.0 pg [facility] MCHC (RBC) [Mass/Vol] 33.5 g/dL 29.9 - 35.2 g/dL [facility] MCV (RBC) [Entitic vol] 82.9 fL 81.0 - 99.0 fL [facility] MONOCYTES ABSOLUTE AUTO 0.5 [facility] Monocytes/100 WBC (Bld) 4 % 1.7 - 12.0 % [facility] NEUTROPHILS ABSOLUTE AUTO 8.6 High [facility] Neutrophils/100 WBC (Bld) 75.6 % High 43.0 - 75.0 % [facility] Platelet mean volume (Bld) [Entitic vol] 11.1 fL 9.5 - 13.5 fL [facility]H EO # 0.1 [facility] PLT 140 Low [facility] RBC 4.14 Low [facility] WBC 11.3 High [facility] ECG 12-LEADon 12-05-2024 Radiology Study observation (narrative) [facility] Urinalysis macro (dipstick) panel (U)on 11-22-2024 Bilirubin, UA Negative Negative - 4(70) +++ mg/dL [facility] Blood, UA Negative Negative - 50 Chuy/mcL [facility] Clarity, UA Clear [facility] Color, UA Yellow [facility] Glucose, UA Negative Negative - 2000(110) ++++ mg/dL [facility] Interpretation and review of laboratory results Abnormal [facility] Ketones, UA Positive Negative - 160(16) ++++ mg/dL [facility] Comment on above: trace Leukocytes, UA Negative Negative - 500+++ Sadi/mcL [facility] Nitrite, UA Negative Negative - Positive [facility] pH, UA 6.5 5 - 9 [facility] Protein, UA Negative Negative - 2000(20) ++++ mg/dL [facility] Spec Grav, UA 1.025 1 - 1.03 [facility] Urobilinogen, UA 0.2 0.2 - 12 mg/dL [facility] MHPT AFP, MATERNALon 025 [facility] SEE NOTE [facility] Comment on above: Results for Estimate d Due Date: 03 06 25 [facility] FAMILY HISTORY [facility] GESTAT AGE (EXACT) 20 wks, [address] [facility] REQ MATERN DIAB [facility] INTERPRETATION Screen Neg [facility] Comment on above: (NOTE) INTERPRETATION: SCREEN NEGATIVE for open spina bifida Neural Tube Defects (NTD) Negative Pre-Test Post-Test Cutoff Neural Tube Defects Risks 1:1030 < 1:83640 1:250 Comments: The risk of an open neural tube defect is less than the screening cut-off. This test was developed and its performance characteristics determined by [facility]. It has not been cleared or approved by the [place] Food and Drug Administration. This test was performed in a CLIA certified laboratory and is intended for clinical purposes. MHPT [age] [facility] MHPT MATERNAL RACE Nonblack [facility] MAT[facility]NAL WEIGHT 234.0 lbs. [facility] MOM FOR AFP 0.[address] [address] NUMBER OF FETUSES [place] NO [facility] MHPT PATIENT'S AFP 36 ng/mL [facility] MH[facility] SMOKING Unknown [facility] SPECIMEN See Note [facility] Comment on above: (NOTE) Initial sample Performed By: [facility] [address] [place] [address] Truck Farmer: Pranay Rousseau MD, PhD CLIA Number: [id number] Original Ordering Provider: ADITYA CRAVEN CLINISYCAYDEN [facility] Urinalysis macro (dipstick) panel (U)on 10-25-2024 Bilirubin, UA Negative Negative - 4(70) +++ mg/dL [facility] Blood, UA Negative Negative - 50 Chuy/mcL [facility] Clarity, UA Clear [facility] Color, UA Yellow [facility] Glucose, UA Negative Negative - 2000(110) ++++ mg/dL [facility] Interpretation and review of laboratory results Normal [facility] Ketones, UA Negative Negative - 160(16) ++++ mg/dL [facility] Leukocytes, UA Negative Negative - 500+++ Sadi/mcL [facility] Nitrite, UA Negative Negative - Positive [facility] pH, UA 5.5 5 - 9 [facility] Protein, UA Negative Negative - 2000(20) ++++ mg/dL [facility] Spec Grav, UA 1.03 1 - 1.03 [facility] Urobilinogen, UA 0.2 0.2 - 12 mg/dL [facility] AFP, Maternalon 10-20-2024 Determined by Ultrasound [facility] Comment on above: Performed By: #### A AFPM #### [facility] [address] [place] [address] Professor Of Family Medicine: Dallas Xiong MD Due Date SEE NOTE [facility] Comment on above: Result Comment: Resu lts for Estimated Due Date: 03 06 25 Performed By: #### A AFPM #### [facility] [address] [place] [address] Professor Of Family Medicine: Dallas Xiong MD Family History No Normal [facility] Comment on above: Performed By: #### A AFPM #### [facility] [address] [place] [address] Professor Of Family Medicine: Dallas Xiong MD Gestat Age (exact) 20 wks, 0 days Normal [facility] Comment on above: Performed By: #### A AFPM #### [facility] [address] [place] [address] Professor Of Family Medicine: Dallas Xiong MD Ins Req Matern Diab No [facility] Comment on above: Performed By: #### A AFPM #### [facility] [address] [place] [address] Professor Of Family Medicine: Dallas Xiong MD Interpretation Screen Neg [facility] Comment on above: Result Comment: (NOT E) INTERPRETATION: SCREEN NEGATIVE for open spina bifida Neural Tube Defects (NTD) Negative Pre-Test Post-Test Cutoff Neural Tube Defects Risks 1:1030 < 1:83124 1:250 Comments: The risk of an open neural tube defect is less than the screening cut-off. This test was developed and its performance characteristics determined by [facility]. It has not been cleared or approved by the US Food and Drug Administration. This test was performed in a CLIA certified laboratory and is intended for clinical purposes. Performed By: #### A AFPM #### [facility] [address], [place] [id number] Professor Of Family Medicine: Dallas Xiong MD [age] [facility] Comment on above: Performed By: #### A AFPM #### [facility] [address], [place] [id number] Professor Of Family Medicine: Dallas Xiong MD Maternal Race Nonblack [facility] Comment on above: Performed By: #### A AFPM #### [facility] [address], [place] [id number] Professor Of Family Medicine: Dallas Xiong MD Maternal Weight 234.0 lbs. [facility] Comment on above: Performed By: #### A AFPM #### [facility] [address], [place] [id number] Professor Of Family Medicine: Dallas Xiong MD MoM for AFP 0.82 [facility] Comment on above: Performed By: #### A AFPM #### [facility] [address], [place] [id number] Professor Of Family Medicine: Dallas Xiong MD Number of Fetuses [facility] Comment on above: Performed By: #### A AFPM #### [facility] [address] [place] [address] Professor Of Family Medicine: Dallas Xiong MD Patient's AFP 36 ng/mL [facility] Comment on above: Performed By: #### A AFPM #### [facility] [address] [place] [address] Professor Of Family Medicine: Dallas Xiong MD Smoking Unknown [facility] Comment on above: Performed By: #### A AFPM #### [facility] [address] [place] [address] Professor Of Family Medicine: Dallas Xiong MD Specimen See Note [facility] Comment on above: Result Comment: (NOT E) Initial sample Performed By: [facility] [address] [place] [address] Truck Farmer: Pranay Rousseau MD, PhD CLIA Number: [id number] Performed By: #### A AFPM #### [facility] [address] [place] [address] Professor Of Family Medicine: Dallas Xiong MD IGP,APTIMA HPV,AGE GDLNon AGE GDLN ACOG TESTING Note . [facility] Comment on above: TESTS RESULT FLAG UN ITS REF RANGE LAB Clinician Provided Cytology Information Other.............. No. of containers..01 ThinPrep Vial Age Algo ACOG Geetha... FLAG LEGEND: L-Low Normal,H-High Normal,LL-Alert Low,HH-Alert High <-Panic Low,>-Panic High,A-Abnormal,AA-Critical Abnormal Performed at: 01 =G [facility] [address] [facility], [place] [address] Lynda Almaguer MD, IGP, RFX APTIMA HPV ASCU Note . [facility] Comment on above: TESTS RESULT FLAG UN ITS REF RANGE LAB DIAGNOSIS: 02 NEGATIVE FOR INTRAEPITHELIAL LESION OR MALIGNANCY. FUNGAL ORGANISMS MORPHOLOGICALLY CONSISTENT WITH MARTHA SPECIES ARE PRESENT. CELLULAR CHANGES ASSOCIATED WITH INFLAMMATION ARE PRESENT. Specimen adequacy: 02 Satisfactory for evaluation. Endocervical and/or squamous metaplastic cells (endocervical component) are present. Performed by: 02 Argelia Correia Chief Of Field Operations . 02 Note: Note 02 The Pap [...] <-Panic Low,>-Panic High,A-Abnormal,AA-Critical Abnormal Performed at: 02 WB [facility] [address], [place] [address] Lynda Almaguer MD, Performed at: = - [facility] [id number] Professor Of Family Medicine: Lynda Almaguer MD, Phone: [phone] Performed at: [facility] [id number] Professor Of Family Medicine: Lynda Almaguer MD, Phone: [phone] BRUSH-SPATULA BRUSH-ALONE 2 [facility] US OB 14+ WEEKS ANATOMY SCAN on [...] II, MD, PHD at 25-Oct-2024 11:18:[address] [facility] Normal Not Available Comment on above: Order Comment: US OB ANATOMY SINGLE W US OB CERVICAL LENGTH Estimated Date of Delivery: 03/06/25 Gestational Age as of 09/26/2024: 17w0d Urinalysis macro (dipstick) panel (U)on 09-26-2024 Bilirubin, UA Negative Negative - 4(70) +++ mg/dL [facility] Blood, UA Negative Negative - 50 Chuy/mcL [facility] Clarity, UA Clear [facility] Color, UA Yellow [facility] Glucose, UA Negative Negative - 1999(110) ++++ mg/dL [facility] Interpretation and review of laboratory results Normal [facility] Ketones, UA Positive Negative - 160(16) ++++ mg/dL [facility] Leukocytes, UA Negative Negative - 500+++ Sadi/mcL [facility] Nitrite, UA Negative Negative - Positive [facility] pH, UA 7 5 - 9 [facility] Protein, UA Negative Negative - 1999(20) ++++ mg/dL [facility] Spec Grav, UA 1.02 1 - 1.03 [facility] Urobilinogen, UA 0.2 0.2 - 12 mg/dL [facility] Urinalysis macro (dipstick) panel (U)on 08-29-2024 Bilirubin, UA Negative Negative - 4(70) +++ mg/dL [facility] Blood, UA Positive Negative - 50 Chuy/mcL [facility] Comment on above: trace-intact Clarity, UA Clear [facility] Color, UA Yellow [facility] Glucose, UA Negative Negative - 1999(110) ++++ mg/dL [facility] Interpretation and review of laboratory results Abnormal [facility] Ketones, UA Negative Negative - 160(16) ++++ mg/dL [facility] Leukocytes, UA Negative Negative - 500+++ Sadi/mcL [facility] Nitrite, UA Negative Negative - Positive [facility] pH, UA 7 5 - 9 [facility] Protein, UA Negative Negative - 1999(20) ++++ mg/dL [facility] Spec Grav, UA 1.025 1 - 1.03 [facility] Urobilinogen, UA 0.2 0.2 - 12 mg/dL [facility] US OB TRANSVAGINALon 025 US OB [...] II, MD, PHD at 05-Aug-2024 09:13:[address] [facility] Normal Not Available Comment on above: Order Comment: US OB TRANSVAGINAL No LMP recorded. [facility] PREG QUANT HCGon 025 HCG QUANTITATIVE 42449 mIU/mL [facility] Comment on above: 5-50 0.2-1 WEEK 50-500 1-2 WEEKS 100-5,000 2-3 WEEKS 500-10,000 3-4 WEEKS 1,000-50,000 4-5 WEEKS 10,000-100,000 5-6 WEEKS 15,000-200,000 6-8 WEEKS 10,000-100,000 2[facility] PREG QUANT HCGon 025 HCG QUANTITATIVE 20254 mIU/mL [facility] Comment on above: 5-50 0.2-1 WEEK 50-500 1-2 WEEKS 100-5,000 2-3 WEEKS 500-10,000 3-4 WEEKS 1,000-50,000 4-5 WEEKS 10,000-100,000 5-6 WEEKS 15,000-200,000 6-8 WEEKS 10,000-100,000 2-3 MONTHS CL[facility] Urinalysis macro (dipstick) panel (U)on 07-15-2023 Bilirubin, UA Negative Negative - 4(70) +++ mg/dL [facility] Blood, UA Negative Negative - 50 Chuy/mcL [facility] Clarity, UA Clear [facility] Color, UA Yellow [facility] Glucose, UA Negative Negative - 1999(110) ++++ mg/dL [facility] Interpretation and review of laboratory results Normal [facility] Ketones, UA Positive Negative - 160(16) ++++ mg/dL [facility] Leukocytes, UA Negative Negative - 500+++ Sadi/mcL [facility] Nitrite, UA Negative Negative - Positive [facility] pH, UA 6.5 5 - 9 [facility] Protein, UA Negative Negative - 2000(20) ++++ mg/dL [facility] Spec Grav, UA 1.025 1 - 1.03 [facility] Urobilinogen, UA 0.2 0.2 - 12 mg/dL [facility] C-Reactive Proteinon 022 CRP [Mass/Vol] mg/L 0 - 5 mg/L [facility] CBC with Auto Differentialon 12-16-2021 Absolute Eos # 0.09 [facility] Absolute Immature Granulocyte 0.04 [facility] Absolute Lymph # 2.98 [facility] Absolute Power # 0.51 [facility] Basophils (Bld) [#/Vol] 0.04 10*3/uL [facility] Basophils/100 WBC (Bld) 0 % 0 - 2 % [facility] Eosinophils/100 WBC (Bld) 1 % 1 - 4 % [facility] Hematocrit (Bld) [Volume fraction] 39.6 % 36.3 - 47.1 % [facility] Hemoglobin (Bld) [Mass/Vol] 13.1 g/dL 11.9 - 15.1 g/dL [facility] Immature granulocytes/100 WBC (Bld) 0 % 0 [facility] Lymphocytes/100 WBC (Bld) 33 % 24 - 43 % [facility] MCH (RBC) [Entitic mass] 28.2 pg 25.2 - 33.5 pg [facility] MCHC (RBC) [Mass/Vol] 33.1 g/dL 28.4 - 34.8 g/dL [facility] MCV (RBC) [Entitic vol] 85.3 fL 82.6 - 102.9 fL [facility] Monocytes/100 WBC (Bld) 6 % 3 - 12 % [facility] NRBC Automated 0.0 0.0 per 100 WBC [facility] Platelet distribution width (Bld) [Ratio] 12.0 % 11.8 - 14.4 % [facility] Platelet mean volume (Bld) [Entitic vol] 11.1 fL 8.1 - 13.5 fL [facility] Platelets (Bld) [#/Vol] 214 10*3/uL [facility] RBC (Bld) [#/Vol] 4.64 10*6/uL 3.95 - 5.1 1 m/uL [facility] Segmented neutrophils/100 WBC (Bld) 60 % 36 - 65 % [facility] Segs Absolute 5.49 [facility] WBC (Bld) [#/Vol] 9.2 10*3/uL [facility] Rheumatoid Factoron 12-17-19 22 Rheumatoid Factor <10 [facility] Sedimentation Rateon 022 Sed Rate 5 [facility] Uric Acidon 12-16-2021 Urate [Mass/Vol] 4.2 mg/dL 2.4 - 5.7 mg/dL [facility] Basic Metabolic Panel w/ Ref yossi to MGOrdered By: Donny Hatfield on 10-15-2020 Anion gap [Moles/Vol] 13 mmol/L 9 - 17 mmol/L [employer] Phone: Calcium [Mass/Vol] 9.6 mg/dL 8.6 - 10. 4 mg/dL [employer] Phone: Chloride [Moles/Vol] 105 mmol/L 98 - 10 7 mmol/L [employer] Phone: CO2 [Moles/Vol] 22 mmol/L 20 - 31 mmol/L [employer] Phone: Creatinine [Mass/Vol] 0.62 mg/dL 0.50 - 0.90 mg/dL [employer] Phone: GFR >60 >60 mL/min [employer] Phone: GFR Non- >60 >60 mL/min [employer] Phone: Glucose [Mass/Vol] 110 mg/dL High 70 - 99 mg/dL [employer] Phone: Interpretation and review of laboratory results Abnormal [employer] Phone: Potassium [Moles/Vol] 3.5 mmol/L Low 3.7 - 5.3 mmol/L [employer] Phone: Sodium [Moles/Vol] 140 mmol/L 135 - 144 mmol/L [employer] Phone: Urea nitrogen (BldV) [Mass/Vol] 12 mg/dL 6 - 20 mg/dL [employer] Phone: Urea nitrogen/Creatinine (Bld) [Mass ratio] 19 [employer] Phone: [employer] Phone: CBC Auto DifferentialOrdered By: Donny Hatfield on 10-15-2020 Absolute Eos # 0.19 [employer] [facility] Work Phone: Absolute Immature Granulocyte 0.06 [employer] Work Phone: Absolute Lymph # 2.50 [employer] [facility] Work Phone: Absolute Power # 0.75 [employer] [facility] Work Phone: Basophils (Bld) [#/Vol] 0.04 10*3/uL [employer] Work Phone: Basophils/100 WBC (Bld) 0 % 0 - 2 % [employer] Phone: Differential Type NOT REPORTED [employer] Phone: Eosinophils/100 WBC (Bld) 1 % 1 - 4 % [employer] Phone: Hematocrit (Bld) [Volume fraction] 42.1 % 36.3 - 47.1 % [employer] Phone: Hemoglobin.gastrointes tinal spec 1 Ql (Stl) 14.0 g/dL 11.9 - 15.1 g/dL [employer] Phone: Immature granulocytes/100 WBC (Bld) 0 % 0 [employer] Phone: Interpretation and review of laboratory results Abnormal [employer] Phone: Lymphocytes/100 WBC (Bld) 14 % Low 24 - 43 % [employer] Phone: MCH (RBC) [Entitic mass] 28.1 pg 25.2 - 33.5 pg [employer] Phone: MCHC (RBC) [Mass/Vol] 33.3 g/dL 28.4 - 34.8 g/dL [employer] Phone: MCV (RBC) [Entitic vol] 84.4 fL 82.6 - 102.9 fL [employer] Phone: Monocytes/100 WBC (Bld) 4 % 3 - 12 % [employer] Phone: NRBC Automated 0.0 0.0 per 100 WBC [employer] Phone: Platelet distribution width (Bld) [Ratio] 11.9 % 11.8 - 14.4 % [employer] Phone: Platelet Estimate NOT REPORTED [employer] Phone: Platelet mean volume (Bld) [Entitic vol] 10.7 fL 8.1 - 13.5 fL [employer] Phone: Platelets (Bld) [#/Vol] 220 10*3/uL [employer] Phone: RBC (Bld) [#/Vol] 4.99 10*6/uL 3.95 - 5.1 1 m/uL [employer] Phone: RBC (Bld) [#/Vol] NOT REPORTED [employer] Phone: Segmented neutrophils/100 WBC (Bld) 81 % High 36 - 65 % [employer] Phone: Segs Absolute 14.20 [employer] Work Phone: WBC (Bld) [#/Vol] 17.7 10*3/uL [facility] [employer] Phone: WBC (Bld) [#/Vol] NOT REPORTED [employer] Phone: [employer] Phone: CT ABDOMEN PELVIS W IV CONTR AST Additional Contrast? NoneOrdered By: Donny Hatfield on 10-15-2020 1. Marked hepatic steatosis. 2. Hepatomegaly. 3. Mild colonic diverticulosis without evidence of diverticulitis. [employer] Phone: EXAMINATION: CT OF T HE ABDOMEN [...] subcutaneous soft tissues are unremarkable in appearance. [employer] Work Phone: Jean Marie, pn Incoming Radiant Results From [employer] - 10/15/2020 1:48 AM EDT EXAMINATION: CT [...] Mild colonic diverticulosis without evidence of diverticulitis. [employer] Phone: [employer] Phone: HCG Qualitative, SerumOrdere d By: Donny Hatfield on 10-15-2020 hCG Qual Negative NEGATIVE [employer] Phone: Comment on above: Specimens with hCG l evels near the threshold of the test (25 mIU/mL) may give a negative or indeterminate result. In such cases, another test should be performed with a new specimen in 48-72 hours. If early is suspected clinically in this setting, correlation with quantitative serum b-hCG level is suggested. [facility] has confirmed the use of plasma for this test. This has not been cleared or approved by the U.S. Food and Drug Administration. The FDA has determined that such clearance is not necessary. [employer] Phone: Hepatic Function PanelOrdere d By: Donny Hatfield on 10-15-2020 Albumin [Mass/Vol] 4.6 g/dL 3.5 - 5.2 g/dL [employer] Phone: Albumin/Globulin [Mass ratio] 1.6 {ratio} [employer] Phone: ALP (Bld) [Catalytic activity/Vol] 59 U/L 35 - 104 U/L [employer] Phone: ALT [Catalytic activity/Vol] 38 U/L High 5 - 33 U/L [employer] Phone: AST [Catalytic activity/Vol] 24 U/L <32 [employer] Phone: Bilirubin [Mass/Vol] 0.48 mg/dL 0.3 - 1 .2 mg/dL [employer] Phone: Bilirubin, Indirect CANNOT BE CALCULATED 0.00 - 1.00 mg/dL [employer] Phone: Bilirubin.indirect [Mass/Vol] mg/dL <0.31 mg/dL [employer] Phone: Free PSA/Total PSA [Mass fraction] 7.4 g/dL 6.4 - 8.3 g/dL [employer] Phone: Globulin NOT REPORTED 1.5 - 3.8 g/dL [employer] Phone: Interpretation and review of laboratory results Abnormal [employer] Phone: Laboratory - Chemistry and C hemistry - challengeOrdered By: Donny Hatfield on 10-15-2020 GFR/1.73 sq M.predicted MDRD (S/P/Bld) [Vol rate/Area] [employer] Phone: Comment on above: Average GFR for 20-2 9 years old: 116 mL/min/1.73sq m Chronic Kidney Disease: <60 mL/min/1.73sq m Kidney failure: <15 mL/min/1.73sq m eGFR calculated using average adult body mass. Additional eGFR calculator available at: http://www.[employer]/multiple_crcl_2011.htm Stage 1: Some kidney damage normal GFR Stage 2: Mild kidney damage GFR 60-89 Stage 3: Moderate kidney damage GFR 30-59 Stage 4: Severe kidney damage GFR 15-29 Stage 5: Severe kidney damage GFR <15 ESRD - chronic treatment by dialysis or transplant Lactic Acid, PlasmaOrdered B y: Donny Hatfield on 10-15-2020 Lactate [Moles/Vol] 1.1 mmol/L 0.5 - 2. 2 mmol/L [employer] Phone: Lactic Acid, Whole Blood NOT REPORTED 0.7 - 2.1 mmol/L [employer] Work Phone: [employer] Phone: LipaseOrdered By: Cuco on 10-15-2020 Lipase [Catalytic activity/Vol] 27 U/L 13 - 60 U/L [facility] Phone: MagnesiumOrdered By: Donny Hatfield on 10-15-2020 Magnesium [Mass/Vol] 1.8 mg/dL 1.6 - 2 .6 mg/dL [employer] Work Phone: [facility] Phone: Microscopic UrinalysisOrdere d By: Donny Hatfield on 10-15-2020 - [employer] Work Phone: Amorphous, UA NOT REPORTED None [employer] [facility] Work Phone: Bacteria, UA 1+ Abnormal None [employer] Work Phone: Casts UA NOT REPORTED /LPF [facility] Work Phone: Crystals, UA NOT REPORTED None /HPF [employer] [facility] Work Phone: Epithelial Cells UA 2 TO 5 [facility] Work Phone: Interpretation and review of laboratory results Abnormal [facility] Work Phone: Mucus, UA 1+ Abnormal None [employer] Phone: Other Observations UA NOT REPORTED NOT REQ. M [facility] [employer] Work Phone: RBC, UA 2 TO 5 [facility] Work Phone: Renal Epithelial, UA NOT REPORTED 0 /HPF [facility] Work Phone: Trichomonas, UA NOT REPORTED None [facility] Work Phone: WBC, UA 0 TO 2 [facility] Work Phone: Yeast, UA NOT REPORTED None [facility] Work Phone: [facility] Work Phone: No Panel InformationOrdered By: Donny Johnsonnalini on 10-15-2020 [facility] Work Phone: Urinalysis Reflex to Culture Ordered By: Donny Hatfield on 10-15-2020 Bilirubin Urine Negative NEGATIVE [facility] Work Phone: Color, UA YELLOW YELLOW [facility] Work Phone: Glucose, Ur Negative NEGATIVE [facility] Work Phone: Interpretation and review of laboratory results Abnormal [facility] [employer] Work Phone: Ketones Ql (U) Negative NEGATIVE [facility] Work Phone: Leukocyte esterase Test strip Ql (U) Negative NEGATIVE [facility] Work Phone: Nitrite, Urine Negative NEGATIVE [facility] Work Phone: pH, UA 5.0 [facility] Work Phone: Protein, UA Negative NEGATIVE [facility] Work Phone: Specific [place], UA 1.010 [facility] Work Phone: Turbidity UA CLEAR CLEAR [facility] Work Phone: Urinalysis Comments NOT REPORTED [facility] Work Phone: Urine Hgb 2+ Abnormal NEGATIVE [facility] Work Phone: Urobilinogen, Urine Normal Normal [facility] Work Phone: [facility] [employer] Work Phone: Comp Metabolic Profon 2020 (cont.) Normal [facility] Comment on above: Result Comment: Aver age GFR for 20-29 years old: 116 mL/min/1.73sq m Chronic Kidney Disease: <60 mL/min/1.73sq m Kidney failure: <15 mL/min/1.73sq m eGFR calculated using average adult body mass. Additional eGFR calculator available at: http://www.[employer]/multiple_crcl_2011.htm Performed By: #### L IPRF, CDP, CP, TSHX #### [facility] [address] [place] [phone] Professor Of Family Medicine: Chato Aguirre MD Albumin [Mass/Vol] 4.3 g/dL Normal 3.5-5.2 [facility] Comment on above: Performed By: #### L IPRF, CDP, CP, TSHX #### [facility] [address] [place] [phone] Professor Of Family Medicine: Chato Aguirre MD Albumin/Glob Ratio 1.3 Normal 1.0-2.5 [facility] Comment on above: Performed By: #### L IPRF, CDP, CP, TSHX #### [facility] [address] [place] [phone] Professor Of Family Medicine: Chato Aguirre MD Alkaline Phos 49 U/L Normal 35-104 [facility] Comment on above: Performed By: #### L IPRF, CDP, CP, TSHX #### [facility] [address] [place] [id number] Professor Of Family Medicine: Chato Aguirre MD ALT [Catalytic activity/Vol] 36 U/L High 5-33 [facility] Comment on above: Performed By: #### L IPRF, CDP, CP, TSHX #### [facility] [address] [place] [phone] Professor Of Family Medicine: Chato Aguirre MD Anion gap [Moles/Vol] 11 mmol/L Normal 9-17 [facility] Comment on above: Performed By: #### L IPRF, CDP, CP, TSHX #### [facility] [address] [place] [phone] Professor Of Family Medicine: Chato Aguirre MD AST [Catalytic activity/Vol] 27 U/L Normal <32 [facility] Comment on above: Performed By: #### L IPRF, CDP, CP, TSHX #### [facility] [address] [place] [phone] Professor Of Family Medicine: Chato Aguirre MD Bilirubin [Mass/Vol] 0.34 mg/dL Normal 0.3-1.[address] [facility] Comment on above: Performed By: #### L IPRF, CDP, CP, TSHX #### [facility] [address] [place] [phone] Professor Of Family Medicine: Chato Aguirre MD Calcium [Mass/Vol] 9.5 mg/dL Normal 8.6-10.4 [facility] Comment on above: Performed By: #### L IPRF, CDP, CP, TSHX #### [facility] [address] [place] [id number] Professor Of Family Medicine: Chato Aguirre MD Chloride [Moles/Vol] 102 mmol/L Normal 98-[address] [facility] Comment on above: Performed By: #### L IPRF, CDP, CP, TSHX #### [facility] [address] [place] [id number] Professor Of Family Medicine: Chato Aguirre MD CO2 [Moles/Vol] 22 mmol/L Normal 20-31 [facility] Comment on above: Performed By: #### L IPRF, CDP, CP, TSHX #### [facility] [address] [place] [phone] Professor Of Family Medicine: Chato Aguirre MD Creatinine [Mass/Vol] 0.46 mg/dL Low 0.50-0.90 [facility] Comment on above: Performed By: #### L IPRF, CDP, CP, TSHX #### [facility] [employer] [employer] [address] [place] [phone] Professor Of Family Medicine: Chato Aguirre MD GFR, Amer >60 Normal >60 [facility] Comment on above: Performed By: #### L IPRF, CDP, CP, TSHX #### [facility] [employer] [employer] [address] [place] [address]134 Professor Of Family Medicine: Chato Aguirre MD GFR,non Amer >60 Normal >[address] [facility] Comment on above: Performed By: #### L IPRF, CDP, CP, TSHX #### [facility] [employer] [address] [place] [address] 87771 Professor Of Family Medicine: Chato Aguirre MD Glucose [Mass/Vol] 92 mg/dL Normal 70-99 [facility] Comment on above: Performed By: #### L IPRF, CDP, CP, TSHX #### [facility] [employer] [address] [place] [address] 22980 Professor Of Family Medicine: Chato Aguirre MD Potassium [Moles/Vol] 4.2 mmol/L Normal 3.7-5.3 [facility] Comment on above: Performed By: #### L IPRF, CDP, CP, TSHX #### [facility] [employer] [employer] [address] [place] [address] 33371 Professor Of Family Medicine: Chato Aguirre MD Protein [Mass/Vol] 7.5 g/dL Normal 6.4-8.3 [facility] Comment on above: Performed By: #### L IPRF, CDP, CP, TSHX #### [facility] [employer] [address] [place] [address] 16020 Professor Of Family Medicine: Chato Aguirre MD Sodium [Moles/Vol] 135 mmol/L Normal 135-144 [facility] Comment on above: Performed By: #### L IPRF, CDP, CP, TSHX #### [facility] [employer] [address] [place] [address] [id number] Professor Of Family Medicine: Chato Aguirre MD Urea nitrogen [Mass/Vol] 11 mg/dL Normal 6-20 [facility] Comment on above: Performed By: #### L IPRF, CDP, CP, TSHX #### [facility] [employer] [address] [place] [phone] Professor Of Family Medicine: Chato Aguirre MD Lipid Prof, Fastingon 2020 Cholesterol [Mass/Vol] 186 mg/dL Normal <200 [facility] Comment on above: Result Comment: Cholesterol Guidelines: <200 Desirable 200-240 Borderline >240 Undesirable Performed By: #### L IPRF, CDP, CP, TSHX #### [facility] [employer] [address] [place] [address] 76656 Professor Of Family Medicine: Chato Aguirre MD Cholesterol in HDL [Mass/Vol] 49 mg/dL Normal >40 [facility] Comment on above: Result Comment: HDL Guidelines: <40 Undesirable 40-59 Borderline >59 Desirable Performed By: #### L IPRF, CDP, CP, TSHX #### [facility] [employer] [address] [place] [address]09 Professor Of Family Medicine: Chato Aguirre MD Cholesterol in LDL [Mass/Vol] 102 mg/dL Normal 0-130 [facility] Comment on above: Result Comment: LDL Guidelines: <100 Desirable 100-129 Near to/above Desirable 130-159 Borderline >159 Undesirable Direct (measured) LDL and calculated LDL are not interchangeable tests. Performed By: #### L IPRF, CDP, CP, TSHX #### [facility] [employer] [address] [place] [address] [phone] Professor Of Family Medicine: Chato Aguirre MD Cholesterol.total/Chol esterol in HDL [Mass ratio] 3.8 {ratio} Normal <5 [facility] Comment on above: Performed By: #### L IPRF, CDP, CP, TSHX #### [facility] [address] [place], [place] [id number] Professor Of Family Medicine: Chato Aguirre MD Triglyceride,Fasting 173 mg/dL High <[address] [facility] Comment on above: Result Comment: Triglyceride Guidelines: <150 Desirable 150-199 Borderline 200-499 High >499 Very high Based on AHA Guidelines for fasting triglyceride, February 2012. Performed By: #### L IPRF, CDP, CP, TSHX #### [facility] [address] [place], [place] [phone] Professor Of Family Medicine: Chato Aguirre MD TSH w/reflex to FT4on 2020 TSH Qn 3.38 m[IU]/L Normal 0.30-5.00 [facility] Comment on above: Performed By: #### L IPRF, CDP, CP, TSHX #### [facility] [address] [place] [address] [phone] Professor Of Family Medicine: Chato Aguirre MD CBC Auto DifferentialOrdered By: Miguel Holley on 09-23-2020 [employer] # 0.14 [employer] [facility] Work Phone: Absolute Immature Granulocyte <0.03 [employer] Work Phone: Absolute Lymph # 2.71 [employer] [facility] Work Phone: [employer] Power # 0.48 [facility] Work Phone: Basophils (Bld) [#/Vol] 0.05 10*3/uL [employer] Work Phone: Basophils/100 WBC (Bld) 1 % 0 - 2 % [employer] Work Phone: Differential Type NOT REPORTED [employer] Phone: Eosinophils/100 WBC (Bld) 2 % 1 - 4 % [employer] Work Phone: Hematocrit (Bld) [Volume fraction] 42.9 % 36.3 - 47.1 % [employer] Phone: Hemoglobin.gastrointes tinal spec 1 Ql (Stl) 13.5 g/dL 11.9 - 15.1 g/dL [employer] Phone: Immature granulocytes/100 WBC (Bld) 0 % 0 [employer] Phone: Lymphocytes/100 WBC (Bld) 30 % 24 - 43 % [employer] Phone: MCH (RBC) [Entitic mass] 27.6 pg 25.2 - 33.5 pg [employer] Phone: MCHC (RBC) [Mass/Vol] 31.5 g/dL 28.4 - 34.8 g/dL [employer] Phone: MCV (RBC) [Entitic vol] 87.6 fL 82.6 - 102.9 fL [employer] Phone: Monocytes/100 WBC (Bld) 5 % 3 - 12 % [employer] Phone: NRBC Automated 0.0 0.0 per 100 WBC [employer] Phone: Platelet distribution width (Bld) [Ratio] 12.4 % 11.8 - 14.4 % [employer] Phone: Platelet Estimate NOT REPORTED [employer] Phone: Platelet mean volume (Bld) [Entitic vol] 11.6 fL 8.1 - 13.5 fL [employer] Phone: Platelets (Bld) [#/Vol] 246 10*3/uL [employer] Phone: RBC (Bld) [#/Vol] 4.90 10*6/uL 3.95 - 5.1 1 m/uL [employer] Phone: RBC (Bld) [#/Vol] NOT REPORTED [employer] Phone: Segmented neutrophils/100 WBC (Bld) 62 % 36 - 65 % [employer] Phone: [employer]s [employer] Work Phone: WBC (Bld) [#/Vol] 9.2 10*3/uL [employer] Phone: WBC (Bld) [#/Vol] NOT REPORTED [employer] Phone: CBC with Diffon 09-23-2020 Abs. Basophil 0.05 k/uL Normal 0.00-0.20 [facility] Comment on above: Performed By: #### L IPRF, CDP, CP, TSHX #### [facility] [employer] [address] [place] [address] Professor Of Family Medicine: Chato Aguirre MD Abs.Imm.Granulocyte <0.03 Normal 0.00-0.30 [facility] Comment on above: Performed By: #### L IPRF, CDP, CP, TSHX #### [facility] [employer] [address] [place] [address] Professor Of Family Medicine: Chato Aguirre MD Abs.Neutrophil (Seg) 5.79 k/uL Normal 1.50-8.[address] [facility] Comment on above: Performed By: #### L IPRF, CDP, CP, TSHX #### [facility] [employer] [address] [place] [address] Professor Of Family Medicine: Chato Aguirre MD Basophils/100 WBC (Bld) 1 % Normal 0-2 [facility] Comment on above: Performed By: #### L IPRF, CDP, CP, TSHX #### [facility] [employer] [address] [place] [address] Professor Of Family Medicine: Chato Aguirre MD Eosinophils (Bld) [#/Vol] 0.14 10*3/uL Normal 0.00-0.44 [facility] Comment on above: Performed By: #### L IPRF, CDP, CP, TSHX #### [address] [address] Professor Of Family Medicine: Chato Aguirre MD Eosinophils/100 WBC (Bld) 2 % Normal 1-4 [facility] Comment on above: Performed By: #### L IPRF, CDP, CP, TSHX #### [address] [address] Professor Of Family Medicine: Chato Aguirre MD Erythrocyte distribution width (RBC) [Ratio] 12.4 % Normal 11.8-14.4 [facility] Comment on above: Performed By: #### L IPRF, CDP, CP, TSHX #### [address] [address] Professor Of Family Medicine: Chato Aguirre MD Hematocrit (Bld) [Volume fraction] 42.9 % Normal 36.3-47.1 [facility] Comment on above: Performed By: #### L IPRF, CDP, CP, TSHX #### [place] [address] Professor Of Family Medicine: Chato Aguirre MD Hemoglobin (Bld) [Mass/Vol] 13.5 g/dL Normal 11.9-15.1 [facility] Comment on above: Performed By: #### L IPRF, CDP, CP, TSHX #### [address] [address] Professor Of Family Medicine: Chato Aguirre MD Immature granulocytes/100 WBC (Bld) 0 % Normal 0 [facility] Comment on above: Performed By: #### L IPRF, CDP, CP, TSHX #### [address] [address] Professor Of Family Medicine: Chato Aguirre MD Lymphocytes (Bld) [#/Vol] 2.71 10*3/uL Normal 1.10-3.70 [facility] Comment on above: Performed By: #### L IPRF, CDP, CP, TSHX #### [address] [address] Professor Of Family Medicine: Chato Aguirre MD Lymphocytes/100 WBC (Bld) 30 % Normal 24-43 [facility] Comment on above: Performed By: #### L IPRF, CDP, CP, TSHX #### [address] [address] Professor Of Family Medicine: Chato Aguirre MD MCH (RBC) [Entitic mass] 27.6 pg Normal 25.2-33.5 [facility] Comment on above: Performed By: #### L IPRF, CDP, CP, TSHX #### [address] [address] Professor Of Family Medicine: Chato Aguirre MD MCHC (RBC) [Mass/Vol] 31.5 g/dL Normal 28.4-34.8 [facility] Comment on above: Performed By: #### L IPRF, CDP, CP, TSHX #### [place] [address] Professor Of Family Medicine: Chato Aguirre MD MCV (RBC) [Entitic vol] 87.6 fL Normal 82.6-102.9 [facility] Comment on above: Performed By: #### L IPRF, CDP, CP, TSHX #### [address] [address] Professor Of Family Medicine: Chato Aguirre MD Monocytes (Bld) [#/Vol] 0.48 10*3/uL Normal 0.10-1.20 [facility] Comment on above: Performed By: #### L IPRF, CDP, CP, TSHX #### [address] [address] Professor Of Family Medicine: Chato Aguirre MD Monocytes/100 WBC (Bld) 5 % Normal 3-12 [facility] Comment on above: Performed By: #### L IPRF, CDP, CP, TSHX #### [address] [address] Professor Of Family Medicine: Chato Aguirre MD Neutrophil (Seg) 62 % Normal 36-65 [facility] Comment on above: Performed By: #### L IPRF, CDP, CP, TSHX #### [address] [address] Professor Of Family Medicine: Chato Aguirre MD NRBC Automated 0.0 per 100 WBC Normal 0.0 [facility] Comment on above: Performed By: #### L IPRF, CDP, CP, TSHX #### [address] [address] Professor Of Family Medicine: Chato Aguirre MD Platelet mean volume (Bld) [Entitic vol] 11.6 fL Normal 8.1-13.5 [facility] Comment on above: Performed By: #### L IPRF, CDP, CP, TSHX #### [address] [address] Professor Of Family Medicine: Chato Aguirre MD Platelets (Bld) [#/Vol] 246 10*3/uL Normal 138-453 [facility] Comment on above: Performed By: #### L IPRF, CDP, CP, TSHX #### [address] [address] Professor Of Family Medicine: Chato Aguirre MD RBC (Bld) [#/Vol] 4.90 10*6/uL Normal 3.95-5.11 [facility] Comment on above: Performed By: #### L IPRF, CDP, CP, TSHX #### [address] [address] Professor Of Family Medicine: Chato Aguirre MD WBC (Bld) [#/Vol] 9.2 10*3/uL Normal 3.5-11.3 [facility] Comment on above: Performed By: #### L IPRF, CDP, CP, TSHX #### [address] [address] Professor Of Family Medicine: Chato Aguirre MD Auto Diff Performed NOT REPORTED Normal [facility] Comment on above: Performed By: #### L IPRF, CDP, CP, TSHX #### [facility] [employer] [address] [place] [address] Professor Of Family Medicine: Chato Aguirre MD Platelet Estimate NOT REPORTED Normal [facility] Comment on above: Performed By: #### L IPRF, CDP, CP, TSHX #### [facility] [employer] [address] [place] [address] Professor Of Family Medicine: Chato Aguirre MD RBC morphology finding Nom (Bld) NOT REPORTED Normal [facility] Comment on above: Performed By: #### L IPRF, CDP, CP, TSHX #### [facility] [employer] [address] [place] [address] Professor Of Family Medicine: Chato Aguirre MD WBC Morphology NOT REPORTED Normal [facility] Comment on above: Performed By: #### L IPRF, CDP, CP, TSHX #### [address] [address] Professor Of Family Medicine: Chato Aguirre MD Comp Metabolic Profon 2020 BUN/CRE Ratio NOT REPORTED Normal 02-17 [facility] Comment on above: Performed By: #### L IPRF, CDP, CP, TSHX #### [facility] [employer] [address] [place] [address] Professor Of Family Medicine: Chato Aguirre MD Staging: NOT REPORTED Normal [facility] Comment on above: Performed By: #### L IPRF, CDP, CP, TSHX #### [facility] [employer] [employer] [address] [place] [address] [phone] Professor Of Family Medicine: Chato Aguirre MD Comprehensive Metabolic Pane lOrdered By: Miguel Holley on 09-23-2020 Albumin [Mass/Vol] 4.3 g/dL 3.5 - 5.2 g/dL [employer] Phone: Albumin/Globulin [Mass ratio] 1.3 {ratio} [employer] Phone: ALP (Bld) [Catalytic activity/Vol] 49 U/L 35 - 104 U/L [employer] Phone: ALT [Catalytic activity/Vol] 36 U/L High 5 - 33 U/L [employer] Phone: Anion gap [Moles/Vol] 11 mmol/L 9 - 17 mmol/L [employer] Phone: AST [Catalytic activity/Vol] 27 U/L <32 [employer] Phone: Bilirubin [Mass/Vol] 0.34 mg/dL 0.3 - 1 .2 mg/dL [employer] Phone: Calcium [Mass/Vol] 9.5 mg/dL 8.6 - 10. 4 mg/dL [employer] Phone: Chloride [Moles/Vol] 102 mmol/L 98 - 10 7 mmol/L [employer] Phone: CO2 [Moles/Vol] 22 mmol/L 20 - 31 mmol/L [employer] Phone: Creatinine [Mass/Vol] 0.46 mg/dL Low 0.50 - 0.90 mg/dL [employer] Phone: Free PSA/Total PSA [Mass fraction] 7.5 g/dL 6.4 - 8.3 g/dL [employer] Phone: GFR >60 >60 mL/min [employer] Phone: GFR Non- >60 >60 mL/min [employer] Phone: GFR/1.73 sq M.predicted MDRD (S/P/Bld) [Vol rate/Area] [employer] Phone: Comment on above: Average GFR for 20-2 9 years old: 116 mL/min/1.73sq m Chronic Kidney Disease: <60 mL/min/1.73sq m Kidney failure: <15 mL/min/1.73sq m eGFR calculated using average adult body mass. Additional eGFR calculator available at: http://www.[employer]/multiple_crcl_2012.htm GFR/1.73 sq M.predicted MDRD (S/P/Bld) [Vol rate/Area] NOT REPORTED [employer] Phone: Glucose [Mass/Vol] 92 mg/dL 70 - 99 mg/dL [employer] Phone: Potassium [Moles/Vol] 4.2 mmol/L 3.7 - 5.3 mmol/L [employer] Phone: Sodium [Moles/Vol] 135 mmol/L 135 - 144 mmol/L [employer] Phone: Urea nitrogen (BldV) [Mass/Vol] 11 mg/dL 6 - 20 mg/dL [employer] Phone: Urea nitrogen/Creatinine (Bld) [Mass ratio] NOT REPORTED [employer] Phone: Laboratory - Chemistry and C hemistry - challengeOrdered By: Miguel Holley on 09-23-2020 Albumin [Mass/Vol] 4.3 g/dL (3.5-5.2 ) [facility] [employer] [facility] Work Phone: Comment on above: Note: Responsible Ob club steward: CEEV [employer] ([id number]) ALT [Catalytic activity/Vol] 36 U/L High (5-33 ) [facility] [employer] [facility] Work Phone: Comment on above: Note: Responsible Ob club steward: [employer] ([id number]) Anion gap [Moles/Vol] 11 mmol/L (9-17 ) [facility] Work Phone: Comment on above: Note: Responsible Ob club steward: [employer] ([id number]) AST [Catalytic activity/Vol] 27 U/L (<32 ) [facility] Work Phone: Comment on above: Note: Responsible Ob club steward: [employer] ([id number]) Bilirubin [Mass/Vol] 0.34 mg/dL (0.3-1.2 ) [facility] Work Phone: Comment on above: Note: Responsible Ob club steward: [employer] ([id number]) Calcium [Mass/Vol] 9.5 mg/dL (8.6-10.4 ) [facility] Work Phone: Comment on above: Note: Responsible Ob club steward: [employer] ([id number]) Chloride [Moles/Vol] 102 mmol/L (98-107 ) [facility] Work Phone: Comment on above: Note: Responsible Ob club steward: [employer] ([id number]) Cholesterol [Mass/Vol] 186 mg/dL (<200 ) [facility] Work Phone: Comment on above: Note: Cholesterol Gu idelines:<200 [id number] Borderline>240 UndesirableResponsible Observer: CEEV [employer] ([id number]) Cholesterol.total/Chol esterol in HDL [Mass ratio] 3.8 {ratio} (<5 ) [facility] Work Phone: Comment on above: Note: Responsible Ob club steward: [employer] ([id number]) CO2 [Moles/Vol] 22 mmol/L (20-31 ) [facility] Work Phone: Comment on above: Note: Responsible Ob club steward: [employer] ([id number]) Creatinine [Mass/Vol] 0.46 mg/dL Low (0.50- 0.90 ) [facility] Work Phone: Comment on above: Note: Responsible Ob club steward: [employer] ([id number]) Glucose [Mass/Vol] 92 mg/dL (70-99 ) [facility] Work Phone: Comment on above: Note: Responsible Ob club steward: [employer] ([id number]) Magnesium [Mass/Vol] 49 mg/dL (>40 ) [facility] Work Phone: Comment on above: Note: HDL Guidelines :<40 [id number] Borderline>59 DesirableResponsible Observer: ABBIEEV [employer]OFILE ([id number]) Magnesium [Mass/Vol] 102 mg/dL (0-130 ) [facility] Work Phone: Comment on above: Note: LDL Guidelines :<100 [id number] Near to/above [id number] Borderline>159 UndesirableDirect (measured) LDL and calculated LDL are not interchangeable tests.Responsible Observer: SHEA [employer] ([id number]) Magnesium [Mass/Vol] 173 mg/dL High (<150 ) [facility] Work Phone: Comment on above: Note: Triglyceride G uidelines:<150 [id number] High>499 Very highBased on AHA Guidelines for fasting triglyceride, February 2012.Responsible Observer: [employer]A [employer] ([id number]) Potassium [Moles/Vol] 4.2 mmol/L (3.7-5.3 ) [facility] Work Phone: Comment on above: Note: Responsible Ob club steward: ABBIEEV [employer] ([id number]) Protein [Mass/Vol] 7.5 g/dL (6.4-8.3 ) [facility] Work Phone: Comment on above: Note: Responsible Ob club steward: C[employer]V [employer] ([id number]) Sodium [Moles/Vol] 135 mmol/L (135-144 ) [facility] Work Phone: Comment on above: Note: Responsible Ob club steward: [employer] ([id number]) Urea nitrogen [Mass/Vol] 11 mg/dL (6-20 ) [facility] Work Phone: Comment on above: Note: Responsible Ob club steward: C[employer] ([id number]) Laboratory - Hematology and Cell countsOrdered By: Miguel Holley on 09-23-2020 Basophils/100 WBC (Bld) 1 % (0-2 ) [facility] Work Phone: Comment on above: Note: Responsible Ob club steward: XNV [employer] ([id number]) Eosinophils (Bld) [#/Vol] 0.14 10*3/uL (0.00-0.44 ) [facility] Work Phone: Comment on above: Note: Responsible Ob club steward: [employer] ([id number]) Eosinophils/100 WBC (Bld) 2 % (1-4 ) [facility] Work Phone: Comment on above: Note: Responsible Ob club steward: [employer] (3018) Erythrocyte distribution width (RBC) [Ratio] 12.4 % (11.8-14.4 ) [facility] Work Phone: Comment on above: Note: Responsible Ob club steward: [employer] ([id number]) Hematocrit (Bld) [Volume fraction] 42.9 % (36.3-47.1 ) [facility] Work Phone: Comment on above: Note: Responsible Ob club steward: X[employer] ([id number]) Hemoglobin (Bld) [Mass/Vol] 13.5 g/dL (11.9-15.1 ) [facility] Work Phone: Comment on above: Note: Responsible Ob club steward: [employer] ([id number]) Immature granulocytes/100 WBC (Bld) 0 % (0 ) [facility] Work Phone: Comment on above: Note: Responsible Ob club steward: [employer] ([id number]) Lymphocytes (Bld) [#/Vol] 2.71 10*3/uL (1.10-3.70 ) [facility] Work Phone: Comment on above: Note: Responsible Ob club steward: [employer] (3018) Lymphocytes/100 WBC (Bld) 30 % (24-43 ) [facility] Work Phone: Comment on above: Note: Responsible Ob club steward: X[employer] ([id number]) MCH (RBC) [Entitic mass] 27.6 pg (25.2-33.5 ) [facility] Work Phone: Comment on above: Note: Responsible Ob club steward: [employer] (3018) MCHC (RBC) [Mass/Vol] 31.5 g/dL (28.4- 34.8 ) [facility] Work Phone: Comment on above: Note: Responsible Ob club steward: [employer] ([id number]) MCV (RBC) [Entitic vol] 87.6 fL (82.6-102.9 ) [facility] Work Phone: Comment on above: Note: Responsible Ob club steward: XNV [employer] ([id number]) Monocytes (Bld) [#/Vol] 0.48 10*3/uL (0.10-1.20 ) [facility] Work Phone: Comment on above: Note: Responsible Ob club steward: XNV [employer] ([id number]) Monocytes/100 WBC (Bld) 5 % (3-12 ) [facility] Work Phone: Comment on above: Note: Responsible Ob club steward: [employer] (3018) Platelet mean volume (Bld) [Entitic vol] 11.6 fL (8.1-13.5 ) [facility] Work Phone: Comment on above: Note: Responsible Ob club steward: XNV [employer] ([id number]) Platelets (Bld) [#/Vol] 246 10*3/uL (138-453 ) [facility] Work Phone: Comment on above: Note: Responsible Ob club steward: [employer] (3018) RBC (Bld) [#/Vol] 4.90 10*6/uL (3.95-5.11 ) [facility] Work Phone: Comment on above: Note: Responsible Ob club steward: XNV [employer] (3018) RBC morphology finding Nom (Bld) NOT REPORTED [facility] Work Phone: Segmented neutrophils/100 WBC (Bld) 62 % (36-65 ) [facility] Work Phone: Comment on above: Note: Responsible Ob club steward: XNV [employer]FILE ([id number]) WBC (Bld) [#/Vol] 9.2 10*3/uL (3.5-11.3 ) [facility] Work Phone: Comment on above: Note: Responsible Ob club steward: XNV [employer] ([id number]) Lipid Prof, Fastingon 2020 Cholesterol,VLDL NOT REPORTED Normal 06-29 [facility] Comment on above: Performed By: #### L IPRF, CDP, CP, TSHX #### [facility] [place] [address] Professor Of Family Medicine: Chato Aguirre MD Lipid, FastingOrdered By: Zandra Holley on 09-23-2020 Cholesterol [Mass/Vol] 186 mg/dL <200 [employer] Work Phone: Comment on above: Cholesterol Guidelines: <200 Desirable 200-240 Borderline >240 Undesirable Cholesterol in HDL [Mass/Vol] 49 mg/dL >40 [employer] Phone: Comment on above: HDL Guidelines: <40 Undesirable 40-59 Borderline >59 Desirable Cholesterol in LDL [Mass/Vol] 102 mg/dL 0 - 130 mg/dL [employer] Phone: Comment on above: LDL Guidelines: <100 Desirable 100-129 Near to/above Desirable 130-159 Borderline >159 Undesirable Direct (measured) LDL and calculated LDL are not interchangeable tests. Cholesterol in VLDL [Mass/Vol] NOT REPORTED High 1 - 30 mg/dL [employer] Phone: Cholesterol.total/Chol esterol in HDL [Mass ratio] 3.8 {ratio} <5 [facility] [employer] Work Phone: Triglyceride, Fasting 173 mg/dL High <150 [facility] [employer] Work Phone: Comment on above: Triglyceride Guidelines: <150 Desirable 150-199 Borderline 200-499 High >499 Very high Based on AHA Guidelines for fasting triglyceride, February 2012. No Panel InformationOrdered By: Miguel Holley on 09-23-2020 Interpretation and review of laboratory results Abnormal [facility] [employer] Work Phone: (cont.) See Note [facility] Work Phone: Comment on above: Note: Average GFR fo r 20-29 years old:116 mL/min/1.73sq mChronic Kidney Disease:<60 mL/min/1.73sq mKidney failure:<15 mL/min/1.73sq meGFR calculated using average adult body mass. Additional eGFR calculatoravailable at:http://www.[employer]/multiple_crcl_2012.htmResponsible Observer: CEEV [employer]OFILE (3003) Abs. Basophil 0.05 k/uL (0.00-0.20 ) [facility] Work Phone: Comment on above: Note: Responsible Ob club steward: XNV [employer] ([id number]) Abs.Imm.Granulocyte <0.03 k/uL (0.00-0. 30 ) [facility] Work Phone: Comment on above: Note: Responsible Ob club steward: [employer] ([id number]) Abs.Neutrophil (Seg) 5.79 k/uL (1.50-8 .10 ) [facility] Work Phone: Comment on above: Note: Responsible Ob club steward: X[employer] ([id number]) Albumin/Glob Ratio 1.3 (1.0-2.5 ) [facility] Work Phone: Comment on above: Note: Responsible Ob club steward: CEEV [employer] (3003) Alkaline Phos 49 U/L (35-104 ) [facility] Work Phone: Comment on above: Note: Responsible Ob club steward: CEEV AUTOFILE ([id number]) Auto Diff Performed NOT REPORTED [facility] Work Phone: BUN/CRE Ratio NOT REPORTED (9-20 ) [facility] Work Phone: Cholesterol,VLDL NOT REPORTED mg/dL (1-30 ) [facility] Work Phone: GFR, Amer >60 mL/min (>60 ) [facility] Work Phone: Comment on above: Note: Responsible Ob club steward: CEEV AUTOFILE ([id number]) GFR,non Amer >60 mL/min (>60 ) [facility] Work Phone: Comment on above: Note: Responsible Ob club steward: CEEV AUTOFILE ([id number]) NRBC Automated 0.0 per_100_WBC (0.0 ) [facility] Work Phone: Comment on above: Note: Responsible Ob club steward: XNV AUTOFILE ([id number]) Platelet Estimate NOT REPORTED [facility] Work Phone: Reported Physicians See Note [facility] Work Phone: Comment on above: Note: Reported Physi cians:Ordering: Kyler AimeeAttending: Kyler AimeeReferring: Cotton, Miguel Staging: NOT REPORTED [facility] Work Phone: Thyroid Stim. Horm. 3.38 mIU/L (0.30-5. 00 ) [facility] Work Phone: Comment on above: Note: Responsible Ob club steward: CEEV AUTOFILE ([id number]) WBC Morphology NOT REPORTED [facility] Work Phone: TSH with ReflexOrdered By: Kamryn Holley on 09-23-2020 TSH Qn 3.38 m[IU]/L [facility] Work Phone: APTTon 04-08-2020 aPTT Coag (Bld) [Time] 25.2 s [place], [place] Comment on above: IV Heparin Therapy Range: 62.0-94.0 Brain Natriuretic Peptideon 04-08-2020 Natriuretic peptide B (Bld) [Mass/Vol] pg/mL <300 pg/mL [place] Comment on above: Pro-BNP results ayse ot be compared to BNP results. Natriuretic peptide B (Bld) [Mass/Vol] Pro-BNP Reference Range: [place] Comment on above: Rule Out: <300 Weaver Zone: Age <50 300-450 Age 50-75 300-900 Age >75 300-1800 Usually represents mild to moderate HF but other cardiopulmonary causes cannot be ruled out. Rule In: Age <50 >450 Age 50-75 >900 Age >75 >1800 CBCon 04-08-2020 Erythrocyte distribution width (RBC) [Ratio] 11.9 % 11.8 - 14.4 % [place] Hematocrit (Bld) [Volume fraction] 37.9 % 36.3 - 47.1 % [place] Hemoglobin (Bld) [Mass/Vol] 12.5 g/dL 11.9 - 15.1 g/dL [place] MCH (RBC) [Entitic mass] 27.8 pg 25.2 - 33.5 pg [place] MCHC (RBC) [Mass/Vol] 33.0 g/dL 28.4 - 34.8 g/dL [place] MCV (RBC) [Entitic vol] 84.2 fL 82.6 - 102.9 fL [place] Platelet mean volume (Bld) [Entitic vol] 10.9 fL 8.1 - 13.5 fL [place] Platelets (Bld) [#/Vol] 184 10*3/uL [place] RBC (Bld) [#/Vol] 4.50 10*6/uL 3.95 - 5.1 1 m/uL [place] WBC (Bld) [#/Vol] 7.8 10*3/uL [place] WBC (Bld) [#/Vol] 0.0 10*3/uL 0.0 per 10 0 WBC [place] COVID-19on 04-08-2020 Interpretation and review of laboratory results Abnormal [place] SARS-CoV-2, Rapid DETECTED Abnormal Not Detected [place] Comment on above: Rapid NAAT: The [...] this assay. Fact sheet for Healthcare Providers: https://www.fda.gov/media/400233/download Fact sheet for Patients: https://www.fda.gov/media/181007/download Methodology: Isothermal Nucleic Acid Amplification Results reported to the appropriate Health Department Source .NASOPHARYNGEAL SWAB [place], [place] CHEST PULMONARY EMBOLISM W CONTRASTon 04-08-2020 Unremarkable appeara nce of the chest with no evidence of pulmonary embolism and clear lungs. Incidentally noted hepatic fatty infiltration. [place] EXAMINATION: CTA OF THE CHEST 04/08/2020 [...] No significant osseous or soft tissue abnormality. [place] Jean Marie, Mhpn Incoming Radiant Results From [facility] - 04/08/2020 4:12 PM EST EXAMINATION: CTA [...] clear lungs. Incidentally noted hepatic fatty infiltration. [place] Comprehensive Metabolic Pane fermin 04-08-2020 Albumin [Mass/Vol] 4.1 g/dL 3.5 - 5.2 g/dL [place] Albumin/Globulin [Mass ratio] 1.4 {ratio} [place] ALP [Catalytic activity/Vol] 62 U/L 35 - 104 U/L [place] ALT [Catalytic activity/Vol] 19 U/L 5 - 33 U/L [place] Anion gap [Moles/Vol] 10 mmol/L 9 - 17 mmol/L [place] AST [Catalytic activity/Vol] 20 U/L <32 [place] Bilirubin Ql (U) 0.48 mg/dL 0.3 - 1.2 mg/dL [place] Bun/Cre Ratio 23 High [place] Calcium [Mass/Vol] 8.9 mg/dL 8.6 - 10. 4 mg/dL [place] Chloride [Moles/Vol] 102 mmol/L 98 - 10 7 mmol/L [place] CO2 [Moles/Vol] 23 mmol/L 20 - 31 mmol/L [place] Creatinine [Mass/Vol] 0.47 mg/dL Low 0.5 - 0.9 mg/dL [place] GFR >60 >60 mL/min [place] GFR Non- >60 >60 mL/min [place] Glucose [Mass/Vol] 88 mg/dL 70 - 99 mg/dL [place] Interpretation and review of laboratory results Abnormal [place] Potassium [Moles/Vol] 3.7 mmol/L 3.7 - 5.3 mmol/L [place] Protein [Mass/Vol] 7.1 g/dL 6.4 - 8.3 g/dL [place] Sodium [Moles/Vol] 135 mmol/L 135 - 144 mmol/L [place] Urea nitrogen [Mass/Vol] 11 mg/dL 6 - 20 mg/dL [place] Metabolic Panelon 04-08-2020 GFR/1.73 sq M predicted among non-blacks MDRD (S/P/Bld) [Vol rate/Area] [place] Comment on above: Stage 1: Some [...] body mass. Additional eGFR calculator available at: http://www.Phorest.Snappli/multiple_crcl_2012.htm Otheron 04-08-2020 SARS-CoV-2 [place], [place] , Urineon 0 Beta HCG ( test) Ql (U) Negative NEGATIVE [place] Comment on above: Specimens with hCG l evels near the threshold of the test (25 mIU/mL) may give a negative or indeterminate result. In such cases, another test should be performed with a new specimen in 48-72 hours. If early is suspected clinically in this setting, correlation with quantitative serum b-hCG level is suggested. [facility] has confirmed the use of plasma for this test. This has not been cleared or approved by the U.S. Food and Drug Administration. The FDA has determined that such clearance is not necessary. Protime-INRon 04-08-2020 INR Coag (PPP) [Relative time] 1.0 {INR} [place] Comment on above: Non-therapeutic Range: INR = 0.9-1.2 Therapeutic Range: Moderate Anticoagulant Intensity: INR = 2.0-3.0 High Anticoagulant Intensity: INR = 2.5-3.5 PT Coag (PPP) [Time] 13.2 s [place] Troponinon 04-08-2020 Troponin I.cardiac [Mass/Vol] NOT REPORTED [place] Troponin T.cardiac [Mass/Vol] NOT REPORTED <0.03 ng/mL [place] Troponin, High Sensitivity <6 0 - 14 ng/L [place] Comment on above: High Sensitivity Troponin values cannot be compared with other Troponin methodologies. Patients with high levels of Biotin oral intake (i.e >5mg/day) may have falsely decreased Troponin levels. Samples collected within 8 hours of biotin intake may require additional information for diagnosis. CBC Auto Differentialon Basophils (Bld) [#/Vol] 0.05 10*3/uL [employer] Phone: Basophils/100 WBC (Bld) 1 % 0 - 2 % [employer] Phone: Differential Type NOT REPORTED [employer] Phone: Eosinophils (Bld) [#/Vol] 0.15 10*3/uL [employer] Phone: Eosinophils/100 WBC (Bld) 1 % 1 - 4 % [employer] Phone: Erythrocyte distribution width (RBC) [Ratio] 12.1 % 11.8 - 14.4 % [employer] Phone: Hematocrit (Bld) [Volume fraction] 44.5 % 36.3 - 47.1 % [employer] Phone: Hemoglobin (Bld) [Mass/Vol] 14.0 g/dL 11.9 - 15.1 g/dL [employer] Phone: Immature granulocytes (Bld) [#/Vol] 0 % 0 [employer] Phone: Immature granulocytes (Bld) [#/Vol] 10*3/uL [employer] Phone: Interpretation and review of laboratory results Abnormal [employer] Phone: Lymphocytes (Bld) [#/Vol] 2.83 10*3/uL [employer] Phone: Lymphocytes/100 WBC (Bld) 27 % 24 - 43 % [employer] Phone: MCH (RBC) [Entitic mass] 27.6 pg 25.2 - 33.5 pg [employer] Phone: MCHC (RBC) [Mass/Vol] 31.5 g/dL 28.4 - 34.8 g/dL [employer] Phone: MCV (RBC) [Entitic vol] 87.6 fL 82.6 - 102.9 fL [employer] Phone: Monocytes (Bld) [#/Vol] 0.52 10*3/uL [employer] Phone: Monocytes/100 WBC (Bld) 5 % 3 - 12 % [employer] Phone: Platelet mean volume (Bld) [Entitic vol] 12.0 fL 8.1 - 13.5 fL [employer] Phone: Platelets (Bld) [#/Vol] NOT REPORTED [employer] Phone: Platelets (Bld) [#/Vol] 241 10*3/uL [employer] Work Phone: RBC (Bld) [#/Vol] 5.08 10*6/uL 3.95 - 5.1 1 m/uL [employer] Work Phone: RBC morphology finding Nom (Bld) NOT REPORTED [facility] Work Phone: Segmented neutrophils/100 WBC (Bld) 66 % High 36 - 65 % [employer] Work Phone: Segs Absolute 7.04 [employer] [facility] Work Phone: WBC (Bld) [#/Vol] 10.6 10*3/uL [employer] Work Phone: WBC (Bld) [#/Vol] 0.0 10*3/uL 0.0 per 10 0 WBC [employer] Work Phone: WBC Morphology NOT REPORTED [facility] Work Phone: Cardiacon 07-06-2019 Cholesterol [Mass/Vol] 198 mg/dL (<200) [facility] Work Phone: Comment on above: Note: Cholesterol Gu idelines:<200 [id number] Borderline>240 UndesirableResponsible Observer: CCEV AUTOFILE ([id number]) Comprehensive Metabolic Pane fermin 07-06-2019 Albumin [Mass/Vol] 4.5 g/dL 3.5 - 5.2 g/dL [employer] Work Phone: Albumin/Globulin [Mass ratio] 1.4 {ratio} [employer] Work Phone: ALP [Catalytic activity/Vol] 62 U/L 35 - 104 U/L [employer] Work Phone: ALT [Catalytic activity/Vol] 39 U/L High 5 - 33 U/L [employer] Work Phone: Anion gap [Moles/Vol] 16 mmol/L 9 - 17 mmol/L [employer] Work Phone: AST [Catalytic activity/Vol] 32 U/L High <32 [employer] Phone: Bilirubin Ql (U) 0.25 mg/dL Low 0.3 - 1.2 mg/dL [employer] Phone: Bun/Cre Ratio NOT REPORTED [facility] Work Phone: Calcium [Mass/Vol] 9.8 mg/dL 8.6 - 10. 4 mg/dL [employer] Phone: Chloride [Moles/Vol] 103 mmol/L 98 - 10 7 mmol/L [employer] Phone: CO2 [Moles/Vol] 19 mmol/L Low 20 - 31 mmol/L [employer] Phone: Creatinine [Mass/Vol] 0.51 mg/dL 0.5 - 0.9 mg/dL [employer] Phone: GFR >60 >60 mL/min [employer] Phone: GFR Non- >60 >60 mL/min [employer] Phone: GFR/1.73 sq M predicted among non-blacks MDRD (S/P/Bld) [Vol rate/Area] [employer] Phone: Comment on above: Average GFR for 20-2 9 years old: 116 mL/min/1.73sq m Chronic Kidney Disease: <60 mL/min/1.73sq m Kidney failure: <15 mL/min/1.73sq m eGFR calculated using average adult body mass. Additional eGFR calculator available at: http://www.Phorest.Snappli/multiple_crcl_2012.htm GFR/1.73 sq M predicted among non-blacks MDRD (S/P/Bld) [Vol rate/Area] NOT REPORTED [employer] Phone: Glucose [Mass/Vol] 89 mg/dL 70 - 99 mg/dL [facility] Work Phone: Interpretation and review of laboratory results Abnormal [employer] Phone: Potassium [Moles/Vol] 4.6 mmol/L 3.7 - 5.3 mmol/L [facility] Phone: Protein [Mass/Vol] 7.8 g/dL 6.4 - 8.3 g/dL [facility] Phone: Sodium [Moles/Vol] 138 mmol/L 135 - 144 mmol/L [facility] Phone: Urea nitrogen [Mass/Vol] 14 mg/dL 6 - 20 mg/dL [employer] Phone: Hematologyon 07-06-2019 Basophils/100 WBC (Bld) 1 % (0-2) [facility] [employer] [facility] Work Phone: Comment on above: Note: Responsible Ob club steward: XNV AUTOFILE ([id number]) Eosinophils (Bld) [#/Vol] 0.15 10*3/uL (0.00-0.44) [facility] Work Phone: Comment on above: Note: Responsible Ob club steward: XNV AUTOFILE ([id number]) Eosinophils/100 WBC (Bld) 1 % (1-4) [facility] Work Phone: Comment on above: Note: Responsible Ob club steward: XNV AUTOFILE ([id number]) Hematocrit (Bld) [Volume fraction] 44.5 % (36.3-47.1) [facility] Work Phone: Comment on above: Note: Responsible Ob club steward: XNV AUTOFILE ([id number]) Hemoglobin (Bld) [Mass/Vol] 14.0 g/dL (11.9-15.1) [facility] Work Phone: Comment on above: Note: Responsible Ob club steward: XNV AUTOFILE ([id number]) Lymphocytes (Bld) [#/Vol] 2.83 10*3/uL (1.10-3.70) [facility] Work Phone: [phone] Comment on above: Note: Responsible Ob club steward: XNV AUTOFILE ([id number]) Lymphocytes/100 WBC (Bld) 27 % (24-43) [facility] Work Phone: [phone] Comment on above: Note: Responsible Ob club steward: XNV AUTOFILE ([id number]) MCH (RBC) [Entitic mass] 27.6 pg (25.2-33.5) [facility] Work Phone: [phone] Comment on above: Note: Responsible Ob club steward: XNV AUTOFILE ([id number]) MCV (RBC) [Entitic vol] 87.6 fL (82.6-102.9 ) [facility] Work Phone: [phone] Comment on above: Note: Responsible Ob club steward: XNV AUTOFILE ([id number]) Monocytes (Bld) [#/Vol] 0.52 10*3/uL (0.10-1.20) [facility] Work Phone: [phone] Comment on above: Note: Responsible Ob club steward: XNV AUTOFILE ([id number]) Monocytes/100 WBC (Bld) 5 % (3-12) [facility] Work Phone: [phone] Comment on above: Note: Responsible Ob club steward: XNV AUTOFILE ([id number]) Platelets (Bld) [#/Vol] NOT REPORTED [facility] Work Phone: [phone] Platelets (Bld) [#/Vol] 241 10*3/uL (138-453) [facility] Work Phone: [phone] Comment on above: Note: Responsible Ob club steward: XNV AUTOFILE ([id number]) RBC (Bld) [#/Vol] 5.08 10*6/uL (3.95-5.11) [facility] Work Phone: [phone] Comment on above: Note: Responsible Ob club steward: XNV AUTOFILE ([id number]) RBC morphology finding Nom (Bld) NOT REPORTED [facility] Work Phone: [phone] WBC (Bld) [#/Vol] 0.0 per_100_WBC (0.0) [facility] Work Phone: Comment on above: Note: Responsible Ob club steward: XNV AUTOFILE ([id number]) WBC (Bld) [#/Vol] 10.6 10*3/uL (3.5-11.3) [facility] Work Phone: Comment on above: Note: Responsible Ob club steward: XNV AUTOFILE ([id number]) Lipid, Fastingon 07-06-2019 Cholesterol [Mass/Vol] 198 mg/dL <200 Me [facility] [employer] Work Phone: Comment on above: Cholesterol Guidelines: <200 Desirable 200-240 Borderline >240 Undesirable Cholesterol in HDL [Mass/Vol] 53 mg/dL >40 [facility] Phone: Comment on above: HDL Guidelines: <40 Undesirable 40-59 Borderline >59 Desirable Cholesterol in LDL [Mass/Vol] 118 mg/dL 0 - 130 mg/dL [facility] Phone: Comment on above: LDL Guidelines: <100 Desirable 100-129 Near to/above Desirable 130-159 Borderline >159 Undesirable Direct (measured) LDL and calculated LDL are not interchangeable tests. Cholesterol in VLDL [Mass/Vol] NOT REPORTED 1 - 30 mg/dL [facility] Phone: Cholesterol.total/Chol esterol in HDL [Mass ratio] 3.7 {ratio} <5 [facility] [employer] Phone: Triglyceride, Fasting 135 mg/dL <150 [facility] [employer] Work Phone: Comment on above: Triglyceride Guidelines: <150 Desirable 150-199 Borderline 200-499 High >499 Very high Based on AHA Guidelines for fasting triglyceride, February 2012. Metabolic Panelon 07-06-2019 Albumin [Mass/Vol] 4.5 g/dL (3.5-5.2) [facility] Work Phone: Comment on above: Note: Responsible Ob club steward: CCEV AUTOFILE ([id number]) ALT [Catalytic activity/Vol] 39 U/L High (5-33) [facility] Work Phone: Comment on above: Note: Responsible Ob club steward: CCEV AUTOFILE ([id number]) Anion gap [Moles/Vol] 16 mmol/L (9-17) [facility] Work Phone: Comment on above: Note: Responsible Ob club steward: CCEV AUTOFILE ([id number]) AST [Catalytic activity/Vol] 32 U/L High (<32) [facility] Work Phone: Comment on above: Note: Responsible Ob club steward: CCEV AUTOFILE ([id number]) Bilirubin [Mass/Vol] 0.25 mg/dL Low (0.3-1.2) [facility] Work Phone: Comment on above: Note: Responsible Ob club steward: CCEV AUTOFILE ([id number]) Calcium [Mass/Vol] 9.8 mg/dL (8.6-10.4) [facility] Work Phone: Comment on above: Note: Responsible Ob club steward: CCEV AUTOFILE ([id number]) Chloride [Moles/Vol] 103 mmol/L (98-107) [facility] Work Phone: Comment on above: Note: Responsible Ob club steward: CCEV AUTOFILE ([id number]) CO2 [Moles/Vol] 19 mmol/L Low (20-31) [facility] Work Phone: Comment on above: Note: Responsible Ob club steward: CCEV AUTOFILE (3002) Creatinine [Mass/Vol] 0.51 mg/dL (0.50-0.90) [facility] Work Phone: Comment on above: Note: Responsible Ob club steward: CCEV AUTOFILE (3002) Glucose [Mass/Vol] 89 mg/dL (70-99) [facility] Work Phone: Comment on above: Note: Responsible Ob club steward: CCEV AUTOFILE (3002) Potassium [Moles/Vol] 4.6 mmol/L (3.7-5.3) [facility] Work Phone: Comment on above: Note: Responsible Ob club steward: CCEV AUTOFILE ([id number]) Protein [Mass/Vol] 7.8 g/dL (6.4-8.3) [facility] Work Phone: Comment on above: Note: Responsible Ob club steward: CCEV AUTOFILE (3002) Sodium [Moles/Vol] 138 mmol/L (135-144) [facility] Work Phone: Comment on above: Note: Responsible Ob club steward: CCEV AUTOFILE ([id number]) Urea nitrogen [Mass/Vol] 14 mg/dL (6-20) [facility] Work Phone: Comment on above: Note: Responsible Ob club steward: CCEV AUTOFILE ([id number]) Otheron 07-06-2019 (cont.) See Note [facility] Work Phone: Comment on above: Note: Average GFR fo r 20-29 years old:116 mL/min/1.73sq mChronic Kidney Disease:<60 mL/min/1.73sq mKidney failure:<15 mL/min/1.73sq meGFR calculated using average adult body mass. Additional eGFR calculatoravailable at:http://www.Phorest.Snappli/multiple_crcl_2012.htmResponsible Observer: CCEV AUTOFILE ([id number]) Abs. Basophil 0.05 k/uL (0.00-0.20) [facility] Work Phone: Comment on above: Note: Responsible Ob club steward: XNV AUTOFILE ([id number]) Abs.Imm.Granulocyte <0.03 k/uL (0.00-0.30) [facility] Work Phone: Comment on above: Note: Responsible Ob club steward: XNV AUTOFILE ([id number]) Abs.Neutrophil (Seg) 7.04 k/uL (1.50-8.10) [facility] Work Phone: Comment on above: Note: Responsible Ob club steward: XNV AUTOFILE ([id number]) Albumin/Glob Ratio 1.4 (1.0-2.5) [facility] Work Phone: Comment on above: Note: Responsible Ob club steward: CCEV AUTOFILE ([id number]) Alkaline Phos 62 U/L (35-104) [facility] Work Phone: [phone] Comment on above: Note: Responsible Ob club steward: CCEV AUTOFILE ([id number]) Auto Diff Performed NOT REPORTED [facility] Work Phone: [phone] BUN/CRE Ratio NOT REPORTED (9-20) [facility] Work Phone: [phone] Cholesterol,HDL 53 mg/dL (>40) [facility] Work Phone: [phone] Comment on above: Note: HDL Guidelines :<40 Olpmlifvssr08-24 Borderline>59 DesirableResponsible Observer: CCEV AUTOFILE ([id number]) Cholesterol,LDL 118 mg/dL (0-130) [facility] Work Phone: Comment on above: Note: LDL Guidelines :<100 [id number] Near to/above [id number] Borderline>159 UndesirableDirect (measured) LDL and calculated LDL are not interchangeable tests.Responsible Observer: CCEV AUTOFILE ([id number]) Cholesterol,VLDL NOT REPORTED mg/dL (-30) [facility] Work Phone: [phone] Cholesterol.total/Chol esterol in HDL [Mass ratio] 3.7 {ratio} (<5) [facility] Work Phone: [phone] Comment on above: Note: Responsible Ob club steward: CCEV AUTOFILE ([id number]) Erythrocyte distribution width (RBC) [Ratio] 12.1 % (11.8-14.4) [facility] Work Phone: Comment on above: Note: Responsible Ob club steward: XNV AUTOFILE ([id number]) Free Insulin 34 uIU/mL High (3-19) [facility] Work Phone: [phone] Comment on above: Note: Responsible Ob club steward: LAB ARUP ([id number]) GFR, Amer >60 mL/min (>60) [facility] Work Phone: Comment on above: Note: Responsible Ob club steward: CCEV AUTOFILE (3002) GFR,non Amer >60 mL/min (>60) [facility] Work Phone: [phone] Comment on above: Note: Responsible Ob club steward: CCEV AUTOFILE (3001) Immature granulocytes (Bld) [#/Vol] 0 % (0) [facility] Work Phone: [phone] Comment on above: Note: Responsible Ob club steward: XNV AUTOFILE (3017) MCHC (RBC) [Mass/Vol] 31.5 g/dL (28.4-34.8) [facility] Work Phone: [phone] Comment on above: Note: Responsible Ob club steward: XNV AUTOFILE ([id number]) Performing Lab: see note [facility] Work Phone: [phone] Comment on above: Note: [facility] [address] [facility] [id number] Note: [facility] [address] [facility] [id number] Platelet mean volume (Bld) [Entitic vol] 12.0 fL (8.1-13.5) [facility] Work Phone: [phone] Comment on above: Note: Responsible Ob club steward: XNV AUTOFILE ([id number]) Reported Physicians See Note [facility] Work Phone: [phone] Comment on above: Note: Reported Physi cians:Ordering: Allyson Floyd AAttending: No FloydthiaReferring: Allyson Floyd Segmented neutrophils/100 WBC (Bld) 66 % High (36-65) [facility] Work Phone: [phone] Comment on above: Note: Responsible Ob club steward: XNV AUTOFILE ([id number]) Staging: NOT REPORTED [facility] Work Phone: [phone] Thyroid Stim. Horm. 4.15 mIU/L (0.30-5.00) [facility] Work Phone: [phone] Comment on above: Note: Responsible Ob club steward: CCEV AUTOFILE (3001) Thyroxine, Free 1.21 ng/dL (0.93-1.70) [facility] Work Phone: Comment on above: Note: Responsible Ob club steward: CCEV AUTOFILE ([id number]) Total Insulin 46 uIU/mL High (3-19) [facility] Work Phone: Comment on above: Note: (NOTE)INTERPRE TIVE INFORMATION: Insulin, Free and TotalThis test reacts on a nearly equimolar basis with the analogsinsulin aspart, insulin glargine, and insulin lispro. Insulindetemir exhibits approximately 50 percent cross-reactivity. Testreactivity with insulin glulisine is negligible (<3 percent). Toconvert to pmol/L, multiply uIU/mL by 6.0. Reference intervalsestablished for fasting specimens.Performed by [facility],[address] [place] [id number] [employer], [place] Xiong MD, Lab. DirectorResponsible Observer: LAB KIERAN (06) Triglyceride,Fasting 135 mg/dL (<150) [facility] Work Phone: Comment on above: Note: Triglyceride G uidelines:<150 [id number] [id number] High>499 Very highBased on AHA Guidelines for fasting triglyceride, February 2012.Responsible Observer: CCEV AUTOFILE ([id number]) Triiodothyronine T3 150 ng/dL (80-200) [facility] Work Phone: Comment on above: Note: Responsible Ob club steward: CEEV AUTOFILE ([id number]) WBC Morphology NOT REPORTED [facility] Work Phone: T3on 07-06-2019 T3, Total 150 ng/dL 80 - 200 ng/dL [employer] Phone: T4, Freeon 07-06-2019 Thyroxine, Free 1.21 ng/dL 0.93 - 1.7 ng/dL [employer] Phone: TSH without Reflexon 020 TSH Qn 4.15 m[IU]/L [employer] Phone: US NON OB TRANSVAGINALon Satisfactory IUD position. RECOMMENDATIONS: No follow-up imaging is recommended. Reference: US BPRs based on Radiology 2009;256(3):377-54; CT/MR BPRs based on J Am Joanne Radiol 2013;10:675-681. [place] EXAMINATION: PELVIC ULTRASOUND 02/02/2019 TECHNIQUE: Transvaginal [...] Free Fluid: No evidence of free fluid. [place], [place] Jean Marie, Mhpn Incoming Radiant Results From [facility] - 02/02/2019 8:44 AM EDT EXAMINATION: PELVIC [...] on J Am Joanne Radiol 2013;10:[id number]. [facility]- ROBBY PERES 08-21-2018 CNOV Office Visit ([facility] ) ----- ROSALBAESTEFANIA Ambrose ([id number]) 1995 F Date Time Provider Department 08/21/18 12:00 PM MIGUEL TENA (DIANELYS) [facility] During your visit today, we recorded the following information about you: Temperature Pulse Respiration Blood pressure 97.6 degrees 99/minute 16/minute 136/81 Weight 109.8 kg Miguel Tena APRN.CNP 08/21/2018 12:46 PM Signed Subjective The history is provided by the patient. No interpreter deaf was used. Cough This is a new [...] is a safe and effective decongestant 3. Weld Nasal [place] may offer relief of nasal and head [...] help open respiratory and sinus passages. - [place] Nasal [place] may offer relief of nasal and head [...] worse. [facility]. I appreciate your confidence in choosing the [facility] for your medical care. Miguel Tena APRN.HEAD LOFT WORKER [facility] [place] 684184 [facility] [address] Referring Provider: SELF [200] [...] is a safe and effective decongestant 3. Weld Nasal [place] may offer relief of nasal and head [...] help open respiratory and sinus passages. - W[place] Nasal [place] may offer relief of nasal and head [...] get worse. Thank you for coming to [facility] today. I appreciate your confidence in choosing the [facility] for your medical care. Miguel Tena APRN.HEAD LOFT WORKER [facility] [place] 684184 [facility] [phone] Prescriptions ordered this encounter [...] by MIGUEL TENA CNP on 08/21/18 Normal [facility] PROGRESSon 08-21-2018 Protein mass conc HNO ID: [id number] Author: Miguel Tena Service: ? Author Type: Nurse Practitioner Type: Progress Notes Filed: 08/21/2018 12:46 PM Note Text: Subjective The history is provided by the patient. No interpreter deaf was used. Cough This is a new [...] 3-5 days or get worse Miguel Tena APRN.HEAD LOFT WORKER [facility] CNCOon 12-22-2017 CNCO Letter Text Erica Velazquez MD [facility] [address] [place] [address] Estefania Navarrete December 22, 2017 Estefania Boggs [place] [address] [facility] [address] Dear Ms. Navarreet, It was noted that you did not keep your scheduled appointment on 12-22-17. It is important to contact the office in advance if you are unable to keep your appointment so that it is available for other patients. Your medical care is important to us. Please call our office to reschedule an appointment. Sincerely, Erica Velazquez MD [facility] Consult Reporton 01-05-2017 Consult Report Patient: JITENDRA NAVARRETE Age: 21 years Sex: Female : 1995 Associated Diagnoses: None Author: TYRON MA RES, KAREN [facility] Podiatry DepartmentReason for Consult: Active [...] discussed with attending physician, Dr. Jaime Shepard [id number] icay Signed by: KAREN SHEPARD DPM, RES on 01/04/2017 13:59 EDTElectronically Co-Signed by: KAREN SHEPARD DPM, RESon 01/04/2017 14:37 EDTElectronically Co-Signed by: Rene REYES DPM 01/05/2017 18:[address] [facility] APTTon 01-04-2017 aPTT 29.9 Second(s) Normal [facility] Comment on above: Result Comment: VERI FIED by Discern Expert. Performed By: #### 1 71064, 1781116, 097865, 155931, 299345, 088615 ####[facility] [address]ra04[address] [place] [address] Medical Director: David Doe MD aPTT 25.9 Second(s) Normal 25.0-36.[address] [facility] Comment on above: Performed By: #### 1 46732, 1134335, 036754, 692842, 631621, 340870 ####[facility] T[address]jabf[address] [place] [id number]) [phone] Director: David Doe MD AUTO DIFFon 01-04-2017 Basophils Auto #/vol (Bld) 0.04 x1000 Normal 0.00-0.[address] [facility] Comment on above: Performed By: #### 1 63394, 4964714, 934639, 069478, 142493, 545230 ####[facility] [address]ou[address]68[address] [place] [address] Medical Director: David Doe MD Basos % 0.5 % Normal [facility] Comment on above: Performed By: #### 1 64378, 5097891, 368835, 539838, 935132, 368611 ####[facility] Wyqmrxrb88515 [place] [address] Medical Director: David Doe MD Eos Count 0.10 x1000 Normal 0.00-0.[address] [facility] Comment on above: Performed By: #### 1 06463, 9996384, 232568, 708954, 857471, 322558 ####[facility] Xj[address]qy14[address] [place] [address] Medical Director: David Doe MD Eosinophils/100 leukocytes 1.0 % Normal [facility] Comment on above: Performed By: #### 1 56635, 5458266, 306587, 518164, 559902, 777233 ####[facility] [address] [place] [id number]) [phone] Director: David Doe MD Lymphocytes 2.84 x1000 Normal 1.20-4.[address] [facility] Comment on above: Performed By: #### 1 05804, 8680628, 880720, 687184, 314469, 075195 ####[facility] Nuqpzahm70953 [place] [address] Medical Director: David Doe MD Lymphocytes/100 leukocytes 29.4 % Normal [facility] Comment on above: Performed By: #### 1 78531, 1128897, 491623, 664445, 869382, 537234 ####[facility] [address]th[address]iwh32[address] [place] [address] Medical Director: David Doe MD Power Count 0.68 x1000 Normal 0.10-1.[address] [facility] Comment on above: Performed By: #### 1 74375, 6271156, 586736, 957679, 850586, 240913 ####[facility] Varqtixx27170 [place] [address] Medical Director: David Doe MD Monocytes/100 leukocytes 7.0 % Normal [facility] Comment on above: Performed By: #### 1 68091, 7124974, 092453, 243940, 244594, 880101 ####[facility] Vdnohtvd43345 [place] [address] Medical Director: David Doe MD Neutrophils 5.98 x1000 Normal 1.40-8.[address] [facility] Comment on above: Performed By: #### 1 23296, 3606301, 766336, 176225, 364825, 745471 ####[facility] Ubvnkvyc82994 [place] [address] Medical Director: David Doe MD Neutrophils/100 WBC Auto (Bld) 62.0 % Normal [facility] Comment on above: Performed By: #### 1 87197, 4846653, 199218, 352911, 214799, 614089 ####[facility] [address]feqckp47200 [place] [address] Medical Director: David Doe MD COMPMETAon 01-04-2017 Globulin 4.0 g/dL Normal [facility] Comment on above: Performed By: #### 1 72478, 4018159, 585698, 314005, 585409, 433338 ####[facility] Phqunxom18219 [place] [address] Medical Director: David Doe MD Osmolality 277 mOsm/kg Normal 275-[address] [facility] Comment on above: Performed By: #### 1 28887, 3406280, 808724, 604087, 451882, 949749 ####[facility] Lstsnqym42358 [place] [address] Medical Director: David Doe MD eGFR (non-black) mL/min/{1.73_m2} Normal [facility] Comment on above: Result Comment: Afri can [facility] GFR Calc Performed By: #### 1 36787, 5845266, 190394, 482451, 971321, 078922 ####[facility] Aeopissv96987 [place] [address] Medical Director: David Doe MD Result Comment: Non GFR CalcMedical judgement is necessary to interpret GFR. The calculated GFR may not accurately reflect renal status in patients >70 years, women, acutely ill hospitalized patients and patients with acute renal failure or known renal disease.Note:Creatinine clearance (not GFR) should be used for drug dosing. Albumin/Globulin Ratio 0.8 {ratio} Normal [facility] Comment on above: Performed By: #### 1 84237, 3483927, 930132, 789418, 318683, 348545 ####[facility] Mixfbojp36177 [place], [place] [id number]) [phone] Director: David Doe MD BUN/Creatinine Ratio 17.6 mg/mg Normal [facility] Comment on above: Performed By: #### 1 56837, 2610456, 395497, 211182, 847005, 672548 ####[facility] [address]kyjrc18562 [place] [address] Medical Director: David Doe MD Alk Phos 61 unit/L Normal 45-[address] [facility] Comment on above: Performed By: #### 1 14531, 5291270, 114956, 073121, 360562, 449838 ####[facility] [address]qvyvjm88654 [place] [address] Medical Director: David Doe MD Bilirubin (total) 0.41 mg/dL Normal 0.20-1.00 [facility] Comment on above: Performed By: #### 1 34402, 9718275, 231149, 953541, 831970, 810385 ####[facility] Fdirtmas39376 [place] [address] Medical Director: David Doe MD Protein 7.4 g/dL Normal 6.0-8.[address] [facility] Comment on above: Performed By: #### 1 94296, 6358304, 236072, 934729, 884450, 348528 ####[facility] [address]nfpef770[address] [place] [address] Medical Director: David Doe MD GPT 16 unit/L Normal 13-[address] [facility] Comment on above: Result Comment: Mariposa puncture should occur prior to sulfasalazine and/or sulfapyridine administration due to the potential for falsely depressed results.Baseline assay values before administration of sulfasalazine and sulfapyridine therapy would not be affected. Performed By: #### 1 41426, 9585595, 422212, 124552, 811487, 894935 ####[facility] Xflbcgbz72862 [place] [address] Medical Director: David Doe MD Creatinine 0.7 mg/dL Normal 0.6-1.[address] [facility] Comment on above: Performed By: #### 1 96860, 3048589, 145394, 175309, 292763, 967480 ####[facility] [address]zmqgrg948[address] [place] [address] Medical Director: David Doe MD GOT 14 unit/L Low 15-[address] [facility] Comment on above: Result Comment: Mariposa puncture should occur prior to sulfasalazine and/or sulfapyridine administration due to the potential for falsely depressed results.Baseline assay values before administration of sulfasalazine and sulfapyridine therapy would not be affected. Performed By: #### 1 28090, 5396555, 662722, 842959, 397151, 282371 ####[facility] [address]vjox71853 [place] [address] Medical Director: David Doe MD Urea nitrogen 13 mg/dL Normal 10-[address] [facility] Comment on above: Performed By: #### 1 18009, 9737320, 441635, 229342, 924269, 003852 ####[facility] [address]td[address] [place] [address] Medical Director: David Doe MD Glucose mass conc 86 mg/dL Normal 72-100 [facility] Comment on above: Result Comment: Mariposa puncture should occur prior to sulfasalazine administration due to the potential for falsely depressed results. Venipuncture should occur prior to sulfapyridine administration due to the potential falsely elevated results.Baseline assay values before administration of sulfasalazine and sulfapyridine therapy would not be affected. Performed By: #### 1 82496, 0171160, 587112, 191958, 996279, 655094 ####[facility] [address]64[address] [place] [address] Medical Director: David Doe MD Albumin 3.4 g/dL Normal 3.4-5.[address] [facility] Comment on above: Performed By: #### 1 02114, 7071481, 130626, 496978, 640965, 584983 ####[facility] Oylcyirm158[address] [place] [address] Medical Director: David Doe MD CO2 19.0 mmol/L Low 21.0-32.[address] [facility] Comment on above: Performed By: #### 1 90724, 6442117, 714214, 884110, 747619, 664603 ####[facility] [address]untk62262 [place] [address] Medical Director: David Doe MD Calcium 9.0 mg/dL Normal 8.5-10.[address] [facility] Comment on above: Performed By: #### 1 91812, 5355548, 649492, 862021, 846024, 845983 ####[facility] [address]umy30[address] [place] [address] Medical Director: David Doe MD Potassium molar conc 3.7 mmol/L Normal 3.5-5.1 [facility] Comment on above: Performed By: #### 1 75972, 3413197, 133674, 458168, 601574, 970307 ####[facility] Awmalvcv42966 [place] [address] Medical Director: David Doe MD Sodium 139 mmol/L Normal 135-[address] [facility] Comment on above: Performed By: #### 1 46365, 7324624, 980136, 568820, 206275, 432907 ####[facility] Kwljruat47025 [place] [address] Medical Director: David Doe MD Chloride 108 mmol/L Normal 100-[address] [facility] Comment on above: Performed By: #### 1 96463, 7198919, 215732, 807491, 797152, 242700 ####[facility] Zk[address]abapw813[address] [place] [address] Medical Director: David Doe MD CT LOWER [...] apparent fracture or dislocation involving the rightfoot.Technologist: Kristaated By: Damir SMITH MD By: Damir SMITH MD Out: 01/04/17 12:59:[address] [facility] ED Physician Reporton 2016 ED Physician [...] Plan Diagnosis Crush injury of right foot ([id number] S97.81XA, Working, Medical) Plan Condition: Stable. Disposition: ED Discharge to Home was placed.(01/04/2017 13:39:31 EDT, Constant Order). Prescriptions: Launch prescriptions Pharmacy:Percocet 5/325 ([id number]) oral tablet (Prescribe): 1 tabs, ORAL, [id number], PRN: for pain, 24 tabs, 0 Refill(s)doxycycline hyclate 100 mg oral tablet (Prescribe): 100 mg = 1 tabs, ORAL, BID, for 10 days, 20 tabs, 0 Refill(s). Patient was given the following educational materials: Cryotherapy, Tdzx-gf-Hczf, Compartment Syndrome of the Foot, Compartment Syndrome of the Foot, Cryotherapy, Etkz-zj-Jpot. Follow up with: 7 NO FAMILY PHYSICIAN Within 3 to 5 [...] by: Selene GALVAN MD 01/04/2017 14:[address] [facility] ED Progress Noteon 7 ED Progress [...] medicatedsig other at bedsidepodiatry coming to see [id number] ASSUMED CARE OF PT, REPORT RECEIVED FROM [...] a little dizzy after trying crutches. Normal [facility] HCGon 01-04-2017 HCG, Qual <1.[address] [facility] Comment on above: Result Comment: 0 - 3 Negative3 - 50 Inconclusive>50 Positive Performed By: #### 1 66489, 1445803, 886457, 364989, 250702, 700751 ####[facility] [address]emxxm[address]85[address] [place], [place] [address] Medical Director: David Doe MD HEMOon 01-04-2017 DIFF? No Normal [facility] Comment on above: Performed By: #### 1 11359, 8230008, 956565, 005276, 519367, 300844 ####[facility] [address]opd98582 [place] [address] Medical Director: David Doe MD Erythrocyte distribution width Auto Ratio (RBC) 13.3 % Normal 11.5-14.[address] [facility] Comment on above: Performed By: #### 1 93621, 5265814, 262574, 876692, 352447, 764824 ####[facility] Imytozgy13304 [place], [place] [address]) [phone] Director: David Doe MD Erythrocytes (RBC) 4.80 x10 Normal 4.20-5.40 [facility] Comment on above: Result Comment: Note : RBC morphology is normal unless otherwise stated. Evaluation performed only if differential is requested. Performed By: #### 1 50006, 8318275, 531859, 332878, 413779, 916470 ####[facility] Tppixszm49067 [place], [place] [id number]) [phone] Director: David Doe MD Hematocrit (HCT) 39.0 % Normal 36.0-46.0 [facility] Comment on above: Performed By: #### 1 32424, 3333200, 140160, 274632, 820291, 175116 ####[facility] Bgurjfly64519 [place], [place] [address]) [phone] Director: David Doe MD Hemoglobin mass conc (Bld) 13.1 g/dL Normal 12.0-16.[address] [facility] Comment on above: Performed By: #### 1 43533, 7054804, 650765, 282137, 090337, 450726 ####[facility] [address]eyq86[address] [place] [address] Medical Director: David Doe MD MCH 27.3 pg Normal 27.0-34.[address] [facility] Comment on above: Performed By: #### 1 70990, 6028975, 311668, 271737, 367619, 180455 ####[facility] Jvvzwpmx32926 [place], [place] [address]) [phone] Director: David Doe MD MCHC mass conc (RBC) 33.6 g/dL Normal 32.0-37.0 [facility] Comment on above: Performed By: #### 1 86547, 5174748, 605065, 845344, 785249, 246635 ####[facility] [address]sutu92460 [place] [address] Medical Director: David Doe MD MCV 81.3 fL Normal 80.0-100.[address] [facility] Comment on above: Performed By: #### 1 22552, 3990133, 415167, 988129, 860136, 846639 ####[facility] Xvxpccmm69277 [place] [address] Medical Director: David Doe MD Nucleated RBC% 0 /100WC Normal [facility] Comment on above: Performed By: #### 1 80173, 7407090, 521741, 473703, 634732, 740160 ####[facility] [address]jztk59751 [place] [address] Medical Director: David Doe MD Platelet mean volume (PMV) 9.4 fL Normal 7.4-10.[address] [facility] Comment on above: Performed By: #### 1 02293, 5046734, 946678, 984144, 168753, 481613 ####[facility] Uwhkckif67250 [place] [address] Medical Director: David Doe MD Platelets 238 x1000 Normal 150-[address] [facility] Comment on above: Performed By: #### 1 14814, 4050339, 652080, 777107, 246079, 763722 ####[facility] Yjbnvmpl35846 [place] [address] Medical Director: David Doe MD WBC (Leukocytes) 9.6 10*3/uL Normal [facility] Comment on above: Performed By: #### 1 68682, 6377075, 694616, 615799, 352575, 274483 ####[facility] Xruqkeei28752 [place] [address] Medical Director: David Doe MD WBC (Leukocytes) 9.6 x10 Normal 4.5-11.0 [facility] Comment on above: Performed By: #### 1 41699, 2410951, 397376, 500609, 205264, 388840 ####[facility] Xscdajgi50466 [place] [address] Medical Director: David Doe MD PT INRon 01-04-2017 Protime Median 11.1 Second(s) Normal [facility] Comment on above: Result Comment: VERI FIED by Discern Expert. Performed By: #### 1 61134, 0765680, 768246, 533491, 419306, 494319 ####[facility] Vuziihgl34912 [place] [address] Medical Director: David Doe MD INR Coag RelTime (PPP) 1.0 {INR} Normal [facility] Comment on above: Result Comment: Norm al reference range for INR on patients not on anticoagulant therapy: 0.9-1.1. General therapeutic range for patients on anticoagulant therapy: 2.0-3.5. Performed By: #### 1 19479, 1885199, 013657, 592878, 107168, 924257 ####[facility] [address]ouas47587 [place] [address] Medical Director: David Doe MD Protime Patient 11.3 Second(s) Normal 9.8-12.7 [facility] Comment on above: Performed By: #### 1 75056, 4238848, 621405, 116171, 726803, 556916 ####[facility] Tebdycrf62879 [place] [address] Medical Director: David Doe MD XR FOOT [...] Alberto AGUILAR MD Out: 01/04/17 11:49:[address] [facility] Vital Signs Date Time Vital Sign Value Performing Clinician Facility 01-23-2025 09:44-0400 Body mass index (BMI) [Ratio] 43.35 kg/m2 Latasha [place] PA Work Phone: [facility] 01-23-2025 09:44-0400 Body weight 125.56 kg Latasha [place] PA Work Phone: [facility] 01-23-2025 09:44-0400 Diastolic blood pressure 74 mm[Hg] Latasha [place] PA Work Phone: [facility] 01-23-2025 09:44-0400 Systolic blood pressure 122 mm[Hg] Latasha [place] PA Work Phone: [facility] 12-27-2024 10:35-0400 Body mass index (BMI) [Ratio] 42.88 kg/m2 Latasha Dayron PA Work Phone: [facility] 12-27-2024 10:35-0400 Body weight 124.19 kg Latasha [place] PA Work Phone: [facility] 12-27-2024 10:35-0400 Diastolic blood pressure 74 mm[Hg] Latasha Dayron PA Work Phone: [facility] 12-27-2024 10:35-0400 Systolic blood pressure 122 mm[Hg] Latasha Dayron PA Work Phone: [facility] 12-13-2024 13:51-0400 Body mass index (BMI) [Ratio] 43.07 kg/m2 Aditya Billy DO Work Phone: [facility] 12-13-2024 13:51-0400 Body weight 124.74 kg Aditya Billy DO Work Phone: [facility] 12-13-2024 13:51-0400 Diastolic blood pressure 70 mm[Hg] Aditya Billy DO Work Phone: [facility] 12-13-2024 13:51-0400 Systolic blood pressure 128 mm[Hg] Aditya Billy DO Work Phone: [facility] 11-22-2024 14:29-0400 Body mass index (BMI) [Ratio] 42.57 kg/m2 Aditya Billy DO Work Phone: [facility] 11-22-2024 14:29-0400 Body weight 123.29 kg Aditya Billy DO Work Phone: [facility] 11-22-2024 14:29-0400 Diastolic blood pressure 78 mm[Hg] Aditya Billy DO Work Phone: [facility] 11-22-2024 14:29-0400 Systolic blood pressure 128 mm[Hg] Aditya Billy DO Work Phone: [facility] 10-25-2024 09:07-0400 Body mass index (BMI) [Ratio] 41.86 kg/m2 Latasha KULKARNI Work Phone: [facility] 10-25-2024 09:07-0400 Body weight 121.22 kg Latasha KULKARNI Work Phone: [facility] 10-25-2024 09:07-0400 Diastolic blood pressure 82 mm[Hg] Latasha KULKARNI Work Phone: [facility] 10-25-2024 09:07-0400 Systolic blood pressure 108 mm[Hg] Latasha Padgett PA Work Phone: [facility] 09-26-2024 10:24-0400 Body mass index (BMI) [Ratio] 41.62 kg/m2 Aditya Billy DO Work Phone: [facility] 09-26-2024 10:24-0400 Body weight 120.54 kg Aditya Billy DO Work Phone: [facility] 09-26-2024 10:24-0400 Diastolic blood pressure 76 mm[Hg] Aditya Billy DO Work Phone: [facility] 09-26-2024 10:24-0400 Systolic blood pressure 124 mm[Hg] Aditya Billy DO Work Phone: [facility] 08-29-2024 09:23-0400 Body mass index (BMI) [Ratio] 41.47 kg/m2 Aditya Billy DO Work Phone: [facility] 08-29-2024 09:23-0400 Body weight 120.11 kg Aditya Billy DO Work Phone: [facility] 08-29-2024 09:23-0400 Diastolic blood pressure 66 mm[Hg] Aditya Billy DO Work Phone: [facility] 08-29-2024 09:23-0400 Systolic blood pressure 122 mm[Hg] Aditya Billy DO Work Phone: [facility] 06-14-2024 09:05-0500 Body mass index (BMI) [Ratio] 41.16 kg/m2 Latasha Dayron PA Work Phone: [facility] 06-14-2024 09:05-0500 Body weight 119.2 kg Latasha [place] PA Work Phone: [facility] 06-14-2024 09:05-0500 Diastolic blood pressure 74 mm[Hg] Latasha [place] PA Work Phone: [facility] 06-14-2024 09:05-0500 Systolic blood pressure 114 mm[Hg] Latasha [place] PA Work Phone: [facility] 05-17-2024 08:45-0500 Body mass index (BMI) [Ratio] 41.04 kg/m2 Latasha [place] PA Work Phone: [facility] 05-17-2024 08:45-0500 Body weight 118.84 kg Latasha [place] PA Work Phone: [facility] 05-17-2024 08:45-0500 Diastolic blood pressure 70 mm[Hg] Latasha [place] PA Work Phone: [facility] 05-17-2024 08:45-0500 Systolic blood pressure 118 mm[Hg] Latasha Dayron PA Work Phone: [facility] 04-18-2024 09:17-0500 Body mass index (BMI) [Ratio] 42.26 kg/m2 Latasha [place] PA Work Phone: [facility] 04-18-2024 09:17-0500 Body weight 122.38 kg Latasha [place] PA Work Phone: [facility] 04-18-2024 09:17-0500 Diastolic blood pressure 76 mm[Hg] Latasha [place] PA Work Phone: [facility] 04-18-2024 09:17-0500 Systolic blood pressure 114 mm[Hg] Ltaasha Dayron PA Work Phone: [facility] 02-21-2024 14:13-0400 Body mass index (BMI) [Ratio] 39.47 kg/m2 Latasha Dayron PA Work Phone: [facility] 02-21-2024 14:13-0400 Body weight 114.31 kg Latasha [place] PA Work Phone: [facility] 02-21-2024 14:13-0400 Diastolic blood pressure 74 mm[Hg] Latasha Dayron PA Work Phone: [facility] 02-21-2024 14:13-0400 Systolic blood pressure 118 mm[Hg] Latasha Dayron PA Work Phone: [facility] 07-15-2023 11:50-0500 Body mass index (BMI) [Ratio] 36.65 kg/m2 Aditya Billy DO Work Phone: [facility] 07-15-2023 11:50-0500 Body weight 106.14 kg Aditya Billy DO Work Phone: [facility] 12-04-2021 10:03-0400 Body height 173.35 cm Shona Lucio [facility] 12-04-2021 10:03-0400 Body mass index (BMI) [Ratio] 35.22 kg/m2 [employer] 12-04-2021 10:03-0400 Body surface area Derived from formula 2.26 m2 [employer] 12-04-2021 10:03-0400 Body weight 105.83 kg [employer] 12-04-2021 10:03-0400 Diastolic blood pressure 68 mm[Hg] [employer] 12-04-2021 10:03-0400 Heart rate 68 /min [employer] 12-04-2021 10:03-0400 Systolic blood pressure 116 mm[Hg] [employer] 10-15-2020 01:15-0400 Diastolic blood pressure 71 mm[Hg] Donny Andes DO Work Phone: [employer] Phone: 10-15-2020 01:15-0400 SaO2% (BldA) [Mass fraction] 94 % Donny Andes DO Work Phone: [employer] Phone: 10-15-2020 01:15-0400 Systolic blood pressure 117 mm[Hg] Donny Andes DO Work Phone: [employer] Work Phone: 10-14-2020 23:18-0400 Body temperature 97.59 [degF] Donny Andes DO Work Phone: [employer] Phone: 10-14-2020 23:18-0400 Heart rate 98 /min Donny Andes DO Work Phone: [employer] Phone: 10-14-2020 23:18-0400 Respiratory rate 18 /min Donny Hatfield DO Work Phone: [employer] Work Phone: 09-23-2020 08:31-0400 Body height 172.72 cm Miguel Holley CNP Work Phone: [employer] [facility] Work Phone: 09-23-2020 08:31-0400 Body mass index (BMI) [Ratio] 40.9 kg/m2 Miguel Holley CNP Work Phone: [employer] [facility] Work Phone: 09-23-2020 08:31-0400 Body surface area Derived from formula 2.32 m2 Miguel Holley CNP Work Phone: [facility] Work Phone: 09-23-2020 08:31-0400 Body temperature 964 [degF] Miguel Holley CNP Work Phone: [employer] [facility] Work Phone: 09-23-2020 08:31-0400 Body weight 122.02 kg Miguel Holley CNP Work Phone: [employer] [facility] Work Phone: 09-23-2020 08:31-0400 Diastolic blood pressure 80 mm[Hg] Miguel Holley CNP Work Phone: [facility] Work Phone: 09-23-2020 08:31-0400 Heart rate 80 /min Miguel Holley CNP Work Phone: [facility] Work Phone: 09-23-2020 08:31-0400 Respiratory rate 18 /min Miguel Holley CNP Work Phone: [facility] Work Phone: 09-23-2020 08:31-0400 SaO2% (BldA) [Mass fraction] 98 % Miguel Holley CNP Work Phone: [facility] Work Phone: 09-23-2020 08:31-0400 Systolic blood pressure 126 mm[Hg] Miguel Holley CNP Work Phone: [facility] Work Phone: 04-08-2020 16:25-0500 Respiratory Rate 16 /min [place], [place] 04-08-2020 16:20-0500 Pulse (Heart Rate) 86 /min [facility] 04-08-2020 16:20-0500 Pulse Oximetry 98 % [facility] , [place] 04-08-2020 16:00-0500 BP Diastolic 66 mm[Hg] [facility] , [place] 04-08-2020 16:00-0500 BP Systolic 121 mm[Hg] [facility] , [place] 04-08-2020 13:23-0500 Body Temperature 98.4 [degF] [place], [place] 03-19-2020 19:09-0400 BMI (Body Mass Index) 37.3 kg/m2 [facility] Work Phone: 03-19-2020 19:09-0400 Body weight 111.13 kg [facility] Work Phone: 03-19-2020 19:09-0400 BSA (Body Surface Area) 2.23 m2 [facility] Work Phone: 03-19-2020 19:09-0400 Height 172.72 cm [facility] Work Phone: 03-05-2020 08:30-0400 BMI (Body Mass Index) 37.3 kg/m2 [facility] Work Phone: 03-05-2020 08:30-0400 Body Temperature 95.4 [degF] [facility] Work Phone: 03-05-2020 08:30-0400 Body weight 111.13 kg [facility] Work Phone: 03-05-2020 08:30-0400 BP Diastolic 80 mm[Hg] [facility] Work Phone: 03-05-2020 08:30-0400 BP Systolic 120 mm[Hg] [facility] Work Phone: 03-05-2020 08:30-0400 BSA (Body Surface Area) 2.23 m2 [facility] Work Phone: 03-05-2020 08:30-0400 Height 172.72 cm [facility] Work Phone: 03-05-2020 08:30-0400 Pulse (Heart Rate) 74 /min [facility] Work Phone: 03-05-2020 08:30-0400 Pulse Oximetry 99 % [facility] Work Phone: 03-05-2020 08:30-0400 Respiratory Rate 18 /min [facility] Work Phone: 03-05-2020 08:30-0400 SaO2% (BldA) [Mass fraction] 99 % [facility] Work Phone: [facility] Work Phone: 12-05-2019 08:37-0400 BMI (Body Mass Index) 35.4 kg/m2 [facility] Work Phone: 12-05-2019 08:37-0400 Body Temperature 98.8 [degF] [facility] Work Phone: 12-05-2019 08:37-0400 Body weight 105.69 kg [facility] Work Phone: 12-05-2019 08:37-0400 BP Diastolic 72 mm[Hg] [facility] Work Phone: 12-05-2019 08:37-0400 BP Systolic 116 mm[Hg] [facility] Work Phone: 12-05-2019 08:37-0400 BSA (Body Surface Area) 2.18 m2 [facility] Work Phone: 12-05-2019 08:37-0400 Flow Rate 0 L/min [facility] Work Phone: 12-05-2019 08:37-0400 Height 172.72 cm [facility] Work Phone: 12-05-2019 08:37-0400 Inhaled Oxygen Concentration 21 % [facility] Work Phone: 12-05-2019 08:37-0400 Pulse (Heart Rate) 81 /min [facility] Work Phone: 12-05-2019 08:37-0400 Pulse Oximetry 98 % [facility] Work Phone: 12-05-2019 08:37-0400 Respiratory Rate 18 /min [facility] Work Phone: 12-05-2019 08:37-0400 SaO2% (BldA) [Mass fraction] 98 % [facility] Work Phone: [facility] Work Phone: 11-06-2019 09:02-0400 BMI (Body Mass Index) 36.2 kg/m2 [facility] Work Phone: 11-06-2019 09:02-0400 Body Temperature 95.8 [degF] [facility] Work Phone: 11-06-2019 09:02-0400 Body weight 107.96 kg [facility] Work Phone: 11-06-2019 09:02-0400 BP Diastolic 80 mm[Hg] [facility] Work Phone: 11-06-2019 09:02-0400 BP Systolic 110 mm[Hg] [facility] Work Phone: 11-06-2019 09:02-0400 BSA (Body Surface Area) 2.2 m2 [facility] Work Phone: 11-06-2019 09:02-0400 Height 172.72 cm [facility] Work Phone: 11-06-2019 09:02-0400 Pulse (Heart Rate) 94 /min [facility] Work Phone: 11-06-2019 09:02-0400 Pulse Oximetry 98 % [facility] Work Phone: 11-06-2019 09:02-0400 Respiratory Rate 18 /min [facility] Work Phone: 11-06-2019 09:02-0400 SaO2% (BldA) [Mass fraction] 98 % [facility] Work Phone: [facility] Work Phone: 10-12-2019 09:53-0400 BMI (Body Mass Index) 38.2 kg/m2 [facility] Work Phone: 10-12-2019 09:53-0400 Body Temperature 98.7 [degF] [facility] Work Phone: 10-12-2019 09:53-0400 Body weight 113.85 kg [facility] Work Phone: 10-12-2019 09:53-0400 BP Diastolic 82 mm[Hg] [facility] Work Phone: 10-12-2019 09:53-0400 BP Systolic 122 mm[Hg] [facility] Work Phone: 10-12-2019 09:53-0400 BSA (Body Surface Area) 2.25 m2 [facility] Work Phone: 10-12-2019 09:53-0400 Flow Rate 0 L/min [facility] Work Phone: 10-12-2019 09:53-0400 Height 172.72 cm [facility] Work Phone: 10-12-2019 09:53-0400 Inhaled Oxygen Concentration 21 % [facility] Work Phone: 10-12-2019 09:53-0400 Pulse (Heart Rate) 97 /min [facility] Work Phone: 10-12-2019 09:53-0400 Pulse Oximetry 98 % [facility] Work Phone: 10-12-2019 09:53-0400 Respiratory Rate 18 /min [facility] Work Phone: 10-12-2019 09:53-0400 SaO2% (BldA) [Mass fraction] 98 % [facility] Work Phone: [facility] Work Phone: 09-14-2019 08:35-0400 BMI (Body Mass Index) 37.7 kg/m2 [facility] Work Phone: 09-14-2019 08:35-0400 Body Temperature 96.6 [degF] [facility] Work Phone: 09-14-2019 08:35-0400 Body weight 112.49 kg [facility] Work Phone: 09-14-2019 08:35-0400 BP Diastolic 80 mm[Hg] [facility] Work Phone: 09-14-2019 08:35-0400 BP Systolic 130 mm[Hg] [facility] Work Phone: 09-14-2019 08:35-0400 BSA (Body Surface Area) 2.24 m2 [facility] Work Phone: 09-14-2019 08:35-0400 Height 172.72 cm [facility] Work Phone: 09-14-2019 08:35-0400 Pulse (Heart Rate) 81 /min [facility] Work Phone: 09-14-2019 08:35-0400 Pulse Oximetry 98 % [facility] Work Phone: 09-14-2019 08:35-0400 Respiratory Rate 18 /min [facility] Work Phone: 09-05-2019 10:26-0400 BMI (Body Mass Index) 37.3 kg/m2 [facility] Work Phone: 09-05-2019 10:26-0400 Body weight 111.13 kg [facility] Work Phone: 09-05-2019 10:26-0400 BSA (Body Surface Area) 2.23 m2 [facility] Work Phone: 09-05-2019 10:26-0400 Height 172.72 cm [facility] Work Phone: 08-17-2019 08:29-0400 BMI (Body Mass Index) 37.3 kg/m2 [facility] Work Phone: 08-17-2019 08:29-0400 Body Temperature 97.9 [degF] [facility] Work Phone: 08-17-2019 08:29-0400 Body weight 111.13 kg [facility] Work Phone: 08-17-2019 08:29-0400 BP Diastolic 80 mm[Hg] [facility] Work Phone: 08-17-2019 08:29-0400 BP Systolic 120 mm[Hg] [facility] Work Phone: 08-17-2019 08:29-0400 BSA (Body Surface Area) 2.23 m2 [facility] Work Phone: 08-17-2019 08:29-0400 Height 172.72 cm [facility] Work Phone: 08-17-2019 08:29-0400 Pulse (Heart Rate) 68 /min [facility] Work Phone: 08-17-2019 08:29-0400 Pulse Oximetry 98 % [facility] Work Phone: 08-17-2019 08:29-0400 Respiratory Rate 18 /min [facility] Work Phone: 07-20-2019 08:36-0500 BMI (Body Mass Index) 39 kg/m2 [facility] Work Phone: 07-20-2019 08:36-0500 Body Temperature 98.4 [degF] [facility] Work Phone: 07-20-2019 08:36-0500 Body weight 116.39 kg [facility] Work Phone: 07-20-2019 08:36-0500 BP Diastolic 80 mm[Hg] [facility] Work Phone: 07-20-2019 08:36-0500 BP Systolic 120 mm[Hg] [facility] Work Phone: 07-20-2019 08:36-0500 BSA (Body Surface Area) 2.27 m2 [facility] Work Phone: 07-20-2019 08:36-0500 Height 172.72 cm [facility] Work Phone: 07-20-2019 08:36-0500 Pulse (Heart Rate) 87 /min [facility] Work Phone: 07-20-2019 08:36-0500 Pulse Oximetry 97 % [facility] Work Phone: 07-20-2019 08:36-0500 Respiratory Rate 18 /min [facility] Work Phone: 07-06-2019 08:43-0500 BMI (Body Mass Index) 39.7 kg/m2 [facility] Work Phone: 07-06-2019 08:43-0500 Body Temperature 97.3 [degF] [facility] Work Phone: 07-06-2019 08:43-0500 Body weight 118.39 kg [facility] Work Phone: 07-06-2019 08:43-0500 BP Diastolic 82 mm[Hg] [facility] Work Phone: 07-06-2019 08:43-0500 BP Systolic 122 mm[Hg] [facility] Work Phone: 07-06-2019 08:43-0500 BSA (Body Surface Area) 2.29 m2 [facility] Work Phone: 07-06-2019 08:43-0500 Height 172.72 cm [facility] Work Phone: 07-06-2019 08:43-0500 Pulse (Heart Rate) 78 /min [facility] Work Phone: 07-06-2019 08:43-0500 Pulse Oximetry 98 % [facility] Work Phone: 07-06-2019 08:43-0500 Respiratory Rate 18 /min [facility] Work Phone: Encounters Encounter Date Encounter Type Care Provider Facility Start: 02-02-2025 End: 02-02-2025 Clinisync Result Encounter Aditya Billy DO Work Phone: [facility] Unsolicited Start: 02-02-2025 End: 02-02-2025 Clinisync Result Encounter Aditya Billy DO Work Phone: [facility] Unsolicited Start: 01-26-2025 End: 01-26-2025 Clinisync Result Encounter Aditya Billy DO Work Phone: [facility] Unsolicited Start: 01-26-2025 End: 01-26-2025 Clinisync Result Encounter Aditya Billy DO Work Phone: [facility] Unsolicited Start: 01-23-2025 End: 01-23-2025 Bamboo flowsheet Latasha KULKARNI Work Phone: [facility] Start: 01-23-2025 End: 01-23-2025 Bamboo flowsheet Latasha KULKARNI Work Phone: [facility] Start: 01-23-2025 End: 01-23-2025 Office outpatient visit 15 minutes Latasha KULKARNI Work Phone: [facility] Comment on above: Third trimester preg robson ([facility]); 34 weeks gestation of ([facility]) Start: 01-23-2025 End: 01-23-2025 ambulatory LATASHA PADGETT [...] flowsheet Aditya Billy DO Work Phone: [facility] Start: 01-09-2025 End: 01-09-2025 Office outpatient visit 15 minutes Aditya Billy DO Work Phone: [facility] Comment on above: Third trimester preg robson ([facility]); 32 weeks gestation of ([facility]); Gestational diabetes mellitus (GDM), antepartum, gestational diabetes method of control unspecified ([facility]); Hyperglycemia during ([facility]) Start: 01-09-2025 End: 01-09-2025 ambulatory ADITYA BILLY Not Available Start: 12-27-2024 End: 12-27-2024 Bamboo flowsheet Latasha KULKARNI Work Phone: [facility] Start: 12-27-2024 End: 12-27-2024 Bamboo flowsheet Latasha KULKARNI Work Phone: [facility] Start: 12-27-2024 End: 12-27-2024 ambulatory ADITYA BILLY Not Available Start: 12-27-2024 End: 12-27-2024 Office outpatient visit 15 minutes Latasha KULKARNI Work Phone: [facility] Comment on above: Third trimester preg robson ([facility]) Start: 12-13-2024 End: 12-13-2024 ambulatory ADITYA BILLY Not Available Start: 12-13-2024 End: 12-13-2024 Office outpatient visit 15 minutes Aditya Billy DO Work Phone: [facility] Comment on above: Elevated glucose rikki erance test; History of gestational diabetes; Third trimester ([facility]); 28 weeks gestation of ([facility]); Gestational diabetes mellitus (GDM), antepartum, gestational diabetes method of control unspecified ([facility]) Start: 12-12-2024 End: 12-12-2024 Clinisync Result Encounter Aditya Billy DO Work Phone: [facility] External Department Unsolicited Start: 12-12-2024 End: 12-12-2024 Clinisync Result Encounter Aditya Billy DO Work Phone: [facility] External Department Unsolicited Start: 12-05-2024 End: 12-07-2024 Clinisync Result Encounter Aditya Billy DO Work Phone: [facility] External Department Unsolicited Start: 12-05-2024 End: 12-07-2024 Clinisync Result Encounter Aditya Billy DO Work Phone: [facility] External Department Unsolicited Start: 11-22-2024 End: 11-22-2024 Bamboo flowsheet Aditya Billy DO Work Phone: [facility] Start: 11-22-2024 End: 11-22-2024 Bamboo flowsheet Aditya Billy DO Work Phone: [facility] Start: 11-22-2024 End: 11-22-2024 ambulatory ADITYA BILLY Not Available Start: 11-22-2024 End: 11-22-2024 Office outpatient visit 15 minutes Aditya Billy DO Work Phone: [facility] Comment on above: Dizziness (Primary D x); 25 weeks gestation of ([facility]); Second trimester ([facility]); History of gestational diabetes; Diabetes mellitus screening [...] Unsolicited Start: 10-17-2024 End: 10-17-2024 ambulatory ADITYA GUEVARAO [facility] Start: 10-17-2024 End: 10-17-2024 Subsequent hospital visit by physician Miguel Stewart CNP Work Phone: [facility] Start: 09-26-2024 End: 09-26-2024 [...] encounter procedure Aditya Billy DO Work Phone: [facility] Start: 09-26-2024 End: 09-26-2024 Periodic [...] Phone: [facility] Comment on above: First trimester [...] 06-14-2024 Office outpatient visit 15 minutes Latasha KULKARNI [...] End: 01-01-2023 Patient encounter procedure Miguel Holley 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 Work 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: [facility] Start: 01-01-2023 End: 01-01-2023 Subsequent hospital visit by physician Miguel Stewart CNP Work Phone: [email or web address] Comment on above: Women's annual routi ne gynecological examination Start: 12-16-2021 End: 12-16-2021 Subsequent hospital visit by physician Miguel Stewart CNP Work Phone: [email or web address] Start: 12-04-2021 Split Srvc Shona Jenkins rne Other [facility] Start: 10-02-2021 End: 10-02-2021 Patient encounter procedure Miguel Stewart CNP Work Phone: [facility] Start: 10-02-2021 End: 10-02-2021 Subsequent hospital visit by physician Miguel Stewart CNP Work Phone: [email or web address] Comment on above: Women's annual routi ne gynecological examination Start: 10-14-2020 End: 10-15-2020 Emergency department patient visit Donnypatrick Hatfield Work Phone: [facility] ED Comment on above: Nausea vomiting and diarrhea (Primary Dx); Generalized abdominal pain Start: 09-23-2020 End: 09-24-2020 ambulatory MIGUEL HOLLEY [facility] Start: 09-23-2020 End: 09-23-2020 Subsequent hospital visit by physician Miguel Stewart CNP Work Phone: [facility] Start: 09-23-2020 End: 09-23-2020 General Jammie RODAS Work Phone: [facility] Work Phone: Start: 09-23-2020 End: 09-23-2020 Adult health examination Miguel Angulocarissa IVORY Work Phone: [facility] Work Phone: Start: 09-23-2020 End: 09-23-2020 FQHC visit, estab pt Miguel Holley CNP Work Phone: [facility] Work Phone: Start: 04-08-2020 End: 04-08-2020 Emergency department patient visit Miguel Holley [facility] ED Comment on above: COVID-19 (Primary Dx ); Fatty liver Start: 03-19-2020 End: 03-19-2020 Telemedicine consultation with patient Miguel Holley Work Phone: [facility] Work Phone: Start: 03-05-2020 End: 03-05-2020 Established patient Miguel Holley Work Phone: [facility] Work Phone: Start: 12-05-2019 End: 12-05-2019 Established patient Poly Franco Work Phone: [facility] Work Phone: Start: 11-06-2019 End: 11-06-2019 Established patient Poly Franco Work Phone: [facility] Work Phone: Start: 10-12-2019 End: 10-12-2019 Patient encounter procedure Paty Short Work Phone: [facility] Work Phone: Start: 10-12-2019 End: 10-12-2019 Established patient Poly Franco Work Phone: [facility] Work Phone: Start: 09-14-2019 End: 09-14-2019 Established patient Poly Franco Work Phone: [facility] Work Phone: Start: 09-11-2019 End: 09-11-2019 Telemedicine consultation with patient Poly Franco Work Phone: [facility] Work Phone: Start: 09-05-2019 End: 09-05-2019 Telemedicine consultation with patient Poly Franco Work Phone: [facility] Work Phone: Start: 08-17-2019 End: 09-11-2019 Telemedicine consultation with patient Poly Franco Work Phone: [facility] Work Phone: Start: 08-17-2019 End: 08-17-2019 Established patient Miguel Holley Work Phone: [facility] Work Phone: Start: 07-20-2019 End: 07-20-2019 Established patient Miguel Holley Work Phone: [facility] Work Phone: Start: 07-06-2019 End: 07-06-2019 Subsequent hospital visit by physician [facility] Start: 07-06-2019 End: 07-06-2019 Established patient Anh Virk Work Phone: [facility] Work Phone: Start: 07-06-2019 End: 07-06-2019 New patient Allyson Floyd Work Phone: [facility] Work Phone: Start: 02-02-2019 End: 02-04-2019 Subsequent hospital visit by physician [facility] Comment on above: Encounter for intrau terine device placement Start: 08-21-2018 End: 08-23-2018 Patient encounter procedure [facility] Start: 01-04-2017 End: 01-04-2017 Emergency department patient visit [address] [facility] [employer] Facility:[id number] Procedures Date Procedure Procedure Detail Performing Clinician Start: 02-02-2025 US OB BPP W NON-STRESS Aditya Billy DO Work Phone: Start: 01-26-2025 US OB BPP W NON-STRESS [...] micrscp Aditya Cervantes DO Work Phone: Start: 01-01-2023 Microscopic observat ion [Identifier] in Cervix by Cyto stain Miguel Holley [employer] 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 Work Phone: Start: 12-16-2021 Assay of blood/uric acid Dedrick Wood PA-C Work Phone: Start: 12-16-2021 C-reactive protein Robel Wood PA-C Work Phone: Start: 12-04-2021 Nerve conduction heaven dies 9-10 studies Shona Lucio Start: 10-02-2021 Microscopic observat ion [Identifier] in Cervix by Cyto stain Miguel Holley MINER[employer] 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 Work Phone: Start: 10-15-2020 Urinalysis microscop ic [...] assmt score doc stnd instrm Miguel Holley HEAD LOFT WORKER Work Phone: Start: 09-23-2020 Antibody hiv-1&hiv-2 single result Miguel Holley HEAD LO[employer] WORKER Work Phone: Start: 09-23-2020 Comprehensive metabo lic panel Miguel Holley [employer] 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 Work Phone: Start: 04-08-2020 Ct thorax w/contrast material Ninoska Lopes Work Phone: Start: 04-08-2020 COVID-19 Ninoska Herorn alejandro Work Phone: Start: 04-08-2020 Urine test visual color cmprsn meths Ninoska Lopes Work Phone: Start: 04-08-2020 Assay of troponin quantitative Ninoskamaame Lopes Work Phone: Start: 04-08-2020 Blood count complete automated Ninoska Lopes Work Phone: Start: 04-08-2020 Comprehensive metabo lic panel Ninoska Lopes Work Phone: Start: 04-08-2020 Natriuretic peptide [facility] ruddy Lopes Work Phone: Start: 04-08-2020 [...] 09-14-2019 Diast bp 80-[address] Fracno Work Phone: Start: 09-14-2019 Syst bp ge [...] in Cervix by Cyto stain Miguel Holley [employer] 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 Work Phone: H/O: section S/P jose carlos [...] malign ant neoplasm of cervix Pap smear [facility] Start: 02-07-2025 End: 02-07-2025 Patient encounter procedure 02/07/2025 10:50 AM EDT Routine [facility] [address] [place] [id number] Aditya Cervantes, DO [address] [place] [address] [facility] Start: 02-06-2025 End: 02-06-2025 Patient encounter procedure 02/06/2025 10:10 AM EDT Routine [facility] [address] [id number] Aditya Cervantes, DO [address] [place] [address] [facility] Start: 01-29-2025 Influenza vaccination Influenza Vacc ine (#1) [facility] Start: 01-23-2025 End: 01-23-2025 Patient encounter procedure [facility] Comment on above: Arrived Start: 01-10-2025 End: 01-10-2025 Patient encounter procedure 01/10/2025 1:00 PM EDT Routine [facility] [address] [facility] [facility] [phone] Aditya Cervantes, DO [address] [place] [address] [facility] Start: 01-09-2025 End: 07-12-2025 US biophysical profile w non stress test US biophysical profile w non stress test Imaging Routine Hyperglycemia during ([facility]) Expected: 01/09/2025 (Approximate), Expires: 07/12/2025 [facility] Work Phone: Comment on above: Expected: 01/09/2025 (Approximate), Expires: 07/12/2025 Start: 01-09-2025 End: 01-09-2025 Patient encounter procedure [facility] Comment on above: Arrived Start: 12-29-2024 Influenza vaccination Flu vacc ine (Season Ended) [facility] Start: 12-27-2024 End: 12-27-2024 Professional / ancillary services management [facility] Start: 12-27-2024 End: 12-27-2024 Patient encounter procedure 12/27/2024 10:20 AM EDT Routine [facility] [address] [place] [address] Latasha Padgett PA [address] [place], [place] [id number] [facility] Start: 12-13-2024 End: 12-13-2024 Patient encounter procedure 12/13/2024 1:40 PM EDT Routine [facility] [address] [facility] [address] [address] Aditya Cervantes DO [address], [place] [id number] [facility] Start: 12-06-2024 End: 12-06-2025 Measurement of glucose 3 hours after glucose challenge for glucose tolerance test Glucose tolerance, 3 hours Lab Routine Elevated glucose tolerance test Expected: 12/06/2024 (Approximate), Expires: 12/06/2025 [facility] Work Phone: Comment on above: Expected: 12/06/2024 (Approximate), Expires: 12/06/2025 Start: 11-22-2024 End: 11-22-2025 12 lead ECG ECG 12 lead unit performed ECG Routine Dizziness Expected: 11/22/2024 (Approximate), Expires: 11/22/2025 [facility] Work Phone: Comment on above: Expected: 11/22/2024 (Approximate), Expires: 11/22/2025 Start: 11-22-2024 End: 11-22-2025 CBC panel - Blood by Automated count CBC Lab Routine Diabetes mellitus screening Expected: 11/22/2024 (Approximate), Expires: 11/22/2025 [facility] Work Phone: Comment on above: Expected: 11/22/2024 (Approximate), Expires: 11/22/2025 Start: 11-22-2024 End: 11-22-2025 Measurement of glucose 1 hour after glucose challenge for glucose tolerance test Glucose tolerance, 1 hour Lab Routine Diabetes mellitus screening Expected: 11/22/2024 (Approximate), Expires: 11/22/2025 [facility] Comment on above: Expected: 11/22/2024 (Approximate), Expires: 11/22/2025 Start: 11-22-2024 End: 11-22-2024 Patient encounter procedure 11/22/2024 1:50 PM EDT Routine [facility] [address] [place] [phone] Aditya Cervantes DO [address] [place] [address] [facility] Start: 10-25-2024 End: 10-25-2024 Patient encounter procedure 10/25/2024 9:30 AM EDT Routine [facility] [address] [place] [phone] Latasha Padgett PA [address] [place], [place] [phone] [facility] Start: 10-25-2024 End: 10-25-2024 Professional / ancillary services management 10/25/2024 8:00 AM EDT Ancillary Procedure [facility] [address] [place] [address] [facility] Start: 10-02-2024 Screening for malign ant neoplasm of cervix Pap smear [facility] Start: 09-26-2024 End: 11-26-2024 Alpha fetoprotein, maternal Alpha fetoprotein, maternal Lab Routine 17 weeks gestation of Expected: 09/26/2024 (Approximate), Expires: 11/26/2024 [facility] Comment on above: Expected: 09/26/2024 (Approximate), Expires: 11/26/2024 Start: 09-26-2024 End: 12-26-2024 US for US OB 14+ weeks anatomy scan Imaging Routine Screening, , for anatomic survey Expected: 09/26/2024, Expires: 12/26/2024 [facility] Comment on above: Expected: 09/26/2024 , Expires: 12/26/2024 Start: 09-26-2024 End: 09-26-2024 Patient encounter procedure 09/26/2024 9:50 AM EDT Routine [facility] [address] [place] [address] Aditya Cervantes, DO [address] [place] [address] [facility] Start: 08-29-2024 End: 08-29-2024 Patient encounter procedure 08/29/2024 9:20 AM EDT Routine [facility] [address] [place] [address] Aditya Cervantes, DO [address] [place] [address] Arrived [facility] Comment on above: Arrived Start: 08-04-2024 End: 08-04-2024 ambulatory 08/04/2024 9:00 AM EST Initial [facility] [address] [place] [address] [facility] Start: 08-04-2024 End: 08-04-2024 Professional / ancillary services management 08/04/2024 8:30 AM EST Ancillary Procedure [facility] [address] [facility] [facility] [phone] [facility] Start: 07-12-2024 End: 07-12-2024 Patient encounter procedure 07/12/2024 8:30 AM EST Office Visit [facility] [address] [facility] [phone] Latasha Padgett PA [address] [facility] [address] [facility] [facility] [address] [place], [place] [phone] [facility] Start: 05-17-2024 End: 05-17-2024 Patient encounter procedure [facility] Comment on above: Arrived Start: 05-10-2024 End: 05-10-2024 Patient encounter procedure 05/10/2024 8:40 AM EST Office Visit [facility] [address] [facility] [facility] [phone] Latasha Padgett, PA [address] [facility] [address] [place] [address] [facility] Start: 01-30-2024 COVID-19 Vaccine ( season) COVID-19 Vaccine ( season) [facility] Start: 01-30-2024 Influenza vaccination Influenza Vacc ine (#1) [facility] Start: 08-19-2023 End: 08-19-2023 Patient encounter procedure 08/19/2023 11:00 AM EDT Routine [facility] [address] [facility] [phone] Latasha Padgett PA [address] [place] [address] [facility] Start: 08-19-2023 End: 08-19-2023 Professional / ancillary services management 08/19/2023 10:00 AM EDT Ancillary Procedure [facility] [address] [place] [phone] [facility] Start: 01-20-2023 End: 01-20-2023 Admission to same day surgery center 01/20/2023 Surgery IP Unit Mychal Nichols MD [address] [place] [address] HYSTEROSCOPY - IUD REMOVAL [facility] Comment on above: HYSTEROSCOPY - IUD R EMOVAL Start: 01-20-2023 End: 01-20-2023 Hysteroscopy removal impacted foreign body HYSTEROSCOPY Intrauterine contraceptive device threads lost, initial encounter 01/20/2023 11:10 AM EDT [facility] Start: 01-20-2023 Subsequent hospital visit by physician 01/20/2023 Hospital Encounter IP Unit Mychal Nichols MD [address] [place] [address] [facility] Start: 12-29-2022 Influenza vaccination Flu vaccine (# 1) [facility] Start: 04-27-2022 End: 04-27-2022 Patient encounter procedure [facility] Start: 01-29-2022 Influenza vaccination [facility] Start: 02-07-2021 Cervical cancer screen Cervical canc er screen [facility] [place], [place] Start: 02-07-2021 Screening for malign ant neoplasm of cervix [facility] Start: 01-29-2021 Influenza vaccination Flu vacc ine (Season Ended) [facility] Work Phone: Start: 09-30-2020 CBC W Auto Different ial panel - Blood [facility] Start: 09-30-2020 Lipid 1996 panel - Serum or Plasma LIPID PROFILE [facility] Start: 09-23-2020 Psychiatry Health [facility] Work Phone: Comment on above: Note: Please make a referral to: Start: 03-26-2020 SARS-CoV-2, KAILA [facility] Work Phone: Start: 03-19-2020 COVID Drive up Testing [facility] Work Phone: Start: 02-06-2020 Medical Establ ished Patient [facility] Work Phone: Start: 01-30-2020 Influenza vaccination Flu vaccine (# 1) [place] Start: 11-09-2019 Medical Establ ished Patient [facility] Work Phone: Start: 10-11-2019 Medical Establ ished Patient [facility] Work Phone: Start: 09-14-2019 Medical Establ ished Patient [facility] Work Phone: Start: 08-17-2019 Medical Establ ished Patient [facility] Work Phone: Start: 07-20-2019 Medical Establ ished Patient [facility] Work Phone: Start: 07-13-2019 Lipid 1996 panel [facility] Work Phone: Start: 02-14-2019 End: 02-14-2019 Office Visit 02/14/2019 Office Visit Obstetrics and Gynecology Pilar Marie APRN - [place]NET[facility] [address] [place] [address] [phone] [facility] CENTER DIRECTOR Start: 02-07-2019 Chlamydia screen Chlamydia screen [place], [place] Start: 02-07-2019 Screening for Chlamy valentino trachomatis Chlamydia screen [facility] Start: 01-29-2019 Influenza vaccination Flu vaccine (# 1) [place] Start: 10-29-2017 DTaP/Tdap/Td vaccine (2 - Td or Tdap) DTaP/Tdap/Td vaccine (2 - Td or Tdap) [facility] Start: 10-29-2017 DTaP/Tdap/Td vaccine (2 - Td) DTaP/Tdap/Td vaccine (2 - Td) [place] Start: 2015 Hepatitis B vaccine (1 of 3 - 19+ 3-dose series) Hepatitis B vaccine (1 of 3 - 19+ 3-dose series) Fidel Curiel [facility] Start: 2014 Hepatitis C screening Hepatitis C sc jim [facility] Start: 2012 COVID-19 Vaccine (1) COVID-19 Vaccin e (1) [facility] [employer] Phone: Start: 2011 HIV screen HIV screen [place], [place] Start: 2011 HIV screening HIV screen [facility] Start: 2011 HPV vaccine (1 - Fem shiela 3-dose series) HPV vaccine (1 - Female 3-dose series) [place] Start: 2009 Varicella Vaccine (1 of 2 - 13+ 2-dose series) Varicella Vaccine (1 of 2 - 13+ 2-dose series) [facility] Start: 2008 COVID-19 Vaccine (1) COVID-19 Vaccin e (1) [facility] Phone: Start: 2008 Depression Screen Depression Screen [facility] Start: 2007 HPV vaccine (1 - 2-d ose series) HPV vaccine (1 - 2-dose series) [facility] Start: 2007 HPV vaccine (1 - Fem shiela 2-dose series) HPV vaccine (1 - Female 2-dose series) [facility] [employer] Phone: Start: 2001 COVID-19 Vaccine (1) COVID-19 Vaccin e (1) [facility] Start: 1997 Varicella vaccine (1 of 2 - 2-dose childhood series) Varicella vaccine (1 of 2 - 2-dose childhood series) [facility] Start: 1996 COVID-19 Vaccine (#1) COVID-19 Vacci ne (#1) [facility] Start: 1996 Hepatitis C screening Hepatitis C sc reen [facility] [employer] Phone: End: 10-17-2024 Alpha Fetoprotein, Maternal [facility] [employer] Phone: Comment on above: Once for 1 Occurrenc es starting 10/17/2024 until 10/17/2024 End: 12-16-2021 GLENNY Screen with Reflex [facility] [employer] Phone: Comment on above: Once for 1 Occurrenc es starting 12/16/2021 until 12/16/2021 CHLAMYDIA TRACHOMATI S (GENITO/STI) CHLAMYDIA TRACHOMATIS (GENITO/STI) Lab Routine STD exposure Vaginal discharge Ordered: 09/26/2024 [facility] Comment on above: Ordered: 09/26/2024 Cytology Cervical or vaginal smear or scraping study Pap Smear Pathology and Cytology Routine Well woman exam with routine gynecological exam Ordered: 09/26/2024 [facility] Comment on above: Ordered: 09/26/2024 End: 10-02-2021 Cytopathology procedure, preparation of smear, genital source PAP SMEAR Lab Routine Women's annual routine gynecological examination 1 Occurrences starting 10/02/2021 until 10/02/2021 [employer] Phone: Comment on above: 1 Occurrences starti ng 10/02/2021 until 10/02/2021 End: 01-01-2023 Cytopathology procedure, preparation of smear, genital source PAP SMEAR Lab Routine Women's annual routine gynecological examination 1 Occurrences starting 01/01/2023 until 01/01/2023 [employer] Phone: Comment on above: 1 Occurrences starti ng 01/01/2023 until 01/01/2023 End: 12-16-2021 HLA-B27 Antigen [employer] Phone: Comment on above: Once for 1 Occurrenc es starting 12/16/2021 until 12/16/2021 End: 07-06-2019 Insulin, free Insulin, free Lab Routine Once for 1 Occurrences starting 07/06/2019 until 07/06/2019 [employer] Phone: Comment on above: Once for 1 Occurrenc es starting 07/06/2019 until 07/06/2019 Insulin, free Insulin, free La b Routine 07/06/2019 9:31 AM EST [employer] Phone: End: 12-16-2021 Lyme Ab BON [employer] Phone: Comment on above: Once for 1 Occurrenc es starting 12/16/2021 until 12/16/2021 Neisseria gonorrhoea e DNA [Presence] in Unspecified specimen by KAILA with probe detection Neisseria gonorrhea DNA probe, direct Lab Routine STD exposure Vaginal discharge Ordered: 09/26/2024 [facility] Comment on above: Ordered: 09/26/2024 SURESWAB(R) ADVANCED VAGINITIS PLUS, TMA SURESWAB(R) ADVANCED VAGINITIS PLUS, TMA Pathology and Cytology Routine STD exposure Vaginal discharge Ordered: 09/26/2024 [facility] Work Phone: Comment on above: Ordered: 09/26/2024 End: 02-13-2025 US for US OB follow up transabdominal approach Imaging Routine Elevated glucose tolerance test Gestational diabetes mellitus (GDM), antepartum, gestational diabetes method of control unspecified ([facility]) q4 weeks for 4 Occurrences starting 12/13/2024 until 02/13/2025 [facility] Comment on above: q4 weeks for 4 Occur rences starting 12/13/2024 until 02/13/2025 Immunizations Immunization Date Immunization Notes Care Provider Em de la cruz 10-30-2007 tetanus toxoid, redu katelyn diphtheria toxoid, and acellular pertussis vaccine, adsorbed [facility] Payers Date Payer Category Payer Medicaid [id number] 2023 Medicaid [id number] 2023 Unknown [facility] [employer] [id number] 2023-Present [address] [address] [place] [address] [id number] 2022 Unknown [employer] [address] [id number] 2022-Present [address] [place] [address] [id number] 2018 Unknown [id number] [id number] 99.5.10.6.3 2016 Unknown [employer] [address] xxxxxxxxxxxx 2016-Present [phone] [address] [place] [address] xxxxxxxxxxxx [id number] .[id number] 1996 Unknown [id number] 2.16.840.1.583146.3.579.2.175 1996 Unknown [id number] 2.16.840.1.947322.3.579.2.173 1996 Unknown [id number] 2.16.840.1.499999.3.579.2.125 9 1996 Unknown [id number] 2.16.840.1.739303.3.579.2.125 9 1996 Unknown [id number] 2.16.840.1.524431.3.579.2.125 9 1996 Unknown [id number] 2.16.840.1.427976.3.579.2.125 9 1996 Unknown [id number] 2.16.840.1.496551.3.579.2.125 9 1996 Unknown [id number] 2.16.840.1.815962.3.579.2.125 9 1996 Unknown [id number] 2.16.840.1.482072.3.579.2.125 9 1996 Unknown [id number] 2.16.840.1.131468.3.579.2.125 9 1996 Unknown [id number] 2.16.840.1.345138.3.579.2.125 9 1996 Unknown [id number] 2.16.840.1.200990.3.579.2.125 9 1996 Unknown [id number] 2.16.840.1.851650.3.579.2.125 9 1996 Unknown [id number] 2.16.840.1.816431.3.579.2.125 9 1996 Unknown [id number] 2.16.840.1.265542.3.579.2.125 9 1996 Unknown [id number] 2.16.840.1.539538.3.579.2.125 9 1996 Unknown [id number] 2.16.840.1.100822.3.579.2.125 9 1996 Unknown [id number] 2.16.840.1.927844.3.579.2.125 9 Unknown [id number] [id number] Social History Date Type Detail Facility Assertion [facility] [employer] [facility] Work Phone: Assertion Emotional stress (finding) [facility] [employer] [facility] Work Phone: Tobacco smoking status Unknown if ever smoked [facility] Assertion Sexually active (finding) [facility] [employer] [facility] Work Phone: Assertion Gender identity finding (finding) [facility] [employer] [facility] Work Phone: Assertion Finding of sexua l orientation (finding) [facility] [employer] [facility] Work Phone: Start: 02-07-2018 End: 01-06-2023 Tobacco smoking status NHIS Never smoker [place] Start: 02-07-2018 End: 01-20-2023 Alcohol intake Current drinker of alcohol (finding) [facility] [employer] Phone: Start: 12-12-2015 Alcohol Comment occassionally [place] Start: 1996 Sex Assigned At Not on file [place] Start: 04-08-2020 End: 01-06-2023 Tobacco use and exposure Never used [place] Exposure to SARS-CoV-2 (event) Not sure [place] Start: 02-07-2018 End: 01-20-2023 Alcohol intake Yes [facility] Assertion Family illness (situation) [facility] Work Phone: Assertion Single person (finding) [facility] Work Phone: Start: *[employer] Start: 04-15-2023 [facility] Start: 01-20-2023 History of Social function [facility] Start: 10-12-2013 Sex Female (finding) 71lbs [id number] NEGATED: Highlighted row Assertion Exposure to pollution (event) [facility] Work Phone: NEGATED: Highlighted row Assertion Tobacco user (finding) [facility] Work Phone: NEGATED: Highlighted row Assertion Current drinker of alcohol (finding) [facility] Work Phone: NEGATED: Highlighted row Assertion Finding relating to drug misuse behavior (finding) [facility] Work Phone: Mental Status Date Assessment Result Facility Cognitive function Cognitive fun ctioning was normal Cognitive function finding (finding) [facility] Work Phone: Clinical Notes 11-06-2019 to [...] Excessive growth affecting management of mother, antepartum ([facility]) 12/06/2023 Third trimester ([facility]) 12/06/2023 No Additional Past Medical History [...] ASSESSMENT & PLAN ICD-10-CM 1. Third trimester ([facility]) Z34.93 CANCELED: POCT urinalysis dipstick manually resulted 2. 34 weeks gestation of ([facility]) Z3A.34 CANCELED: POCT urinalysis dipstick manually [...] of: CAYLA Kwok documented in this encounter [facility] 01-09-2025 History of Presen t illness Narrative [...] Excessive growth affecting management of mother, antepartum ([facility]) 12/06/2023 Third trimester ([facility]) 12/06/2023 No Additional Past Medical History [...] nursing note reviewed. Exam conducted with a web editor present. Vitals: Estimated body mass index is 42.88 kg/m as calculated from the following: Height as of 01/10/24: 5' 7 . Weight as of 12/27/24: 273 lb 12.8 oz. BP: No LMP recorded. Patient is . Assessment/Plan Encounter Diagnosis: ICD-10-CM 1. Third trimester ([facility]) Z34.93 POCT urinalysis dipstick manually resulted 2. 32 weeks gestation of ([facility]) Z3A.32 3. Gestational diabetes mellitus (GDM), antepartum, gestational diabetes method of control unspecified ([facility]) O24.419 4. Hyperglycemia during ([facility]) O99.810 US biophysical profile w non [...] Aditya Cervantes DO documented in this encounter [facility] 12-27-2024 History of Presen t illness Narrative [...] Excessive growth affecting management of mother, antepartum ([facility]) 12/06/2023 Third trimester ([facility]) 12/06/2023 No Additional Past Medical History [...] nursing note reviewed. Exam conducted with a web editor present. Vitals: Estimated body mass index is 42.88 kg/m as calculated from the following: Height as of 01/10/24: 5' 7 . Weight as of this encounter: 273 lb 12.8 oz. BP: 122/74 No LMP recorded. Patient is . ASSESSMENT & PLAN ICD-10-CM 1. Third trimester ([facility]) Z34.93 POCT urinalysis dipstick manually resulted [...] routine OB appointment. documented in this encounter [facility] 12-13-2024 History of Presen t illness Narrative [...] Excessive growth affecting management of mother, antepartum ([facility]) 12/06/2023 Third trimester ([facility]) 12/06/2023 No Additional Past Medical History [...] of gestational diabetes Z86.32 3. Third trimester ([facility]) Z34.93 POCT urinalysis dipstick manually resulted 4. 28 weeks gestation of ([facility]) Z3A.28 POCT urinalysis dipstick manually resulted [...] Aditya Cervantes DO documented in this encounter [facility] 11-22-2024 History of Presen t illness Narrative [...] Excessive growth affecting management of mother, antepartum ([facility]) 12/06/2023 Third trimester ([facility]) 12/06/2023 No Additional Past Medical History [...] PLAN ICD-10-CM 1. 25 weeks gestation of ([facility]) Z3A.25 POCT urinalysis dipstick manually resulted 2. Second trimester ([facility]) Z34.92 POCT urinalysis dipstick manually resulted [...] Aditya Cervantes DO documented in this encounter [facility] 10-25-2024 History of Presen t illness Narrative [...] of: CAYLA Kwok documented in this encounter [facility] 09-26-2024 History of Presen t illness Narrative [...] nursing note reviewed. Exam conducted with a web editor present. Vitals: Estimated body mass index is [...] Aditya Cervantes DO documented in this encounter [facility] 08-29-2024 History of Presen t illness Narrative [...] nursing note reviewed. Exam conducted with a web editor present. Vitals: Estimated body mass index is [...] or undercooked meat, and stay away from [facility]. Patient has been consulted regarding any further do's and don'ts of . Patient voiced understanding and all questions and concerns were answered. Orders Placed This Encounter Procedures POCT urinalysis dipstick manually resulted Follow Up: Patient is to return in 4 weeks for routine OB appointment. Documented by Lindsey Dong LPN on behalf of: Aditya Cervantes DO documented in this encounter [facility] 06-14-2024 History of Presen t illness Narrative [...] of: CAYLA Kwok documented in this encounter [facility] 05-17-2024 History of Presen t illness Narrative [...] of CAYLA Kwok documented in this encounter [facility] 04-18-2024 History of Presen t illness Narrative [...] of: CAYLA Kwok documented in this encounter [facility] 09-23-2024 History of Presen t illness Narrative Reason [...] of: CAYLA Kwok documented in this encounter [facility] 07-15-2023 History of Presen t illness Narrative [...] Aditya Cervantes DO documented in this encounter [facility] 09-23-2020 Evaluation note Includes: Assessments for all patient encounters Findings Anxiety disorder NOS [facility] with Jammie RODAS 09/23/2020 Assessment of visit for: screening for human immunodeficiency virus Medical Established Patient with Miguel Anguloen [facility] 09/23/2020 Diabetes Risk Test Score was three score 09/23/2020 Medical Established Patient with Miguel Dell [facility] 09/23/2020 Morbid obesity Medical Established Patient with Miguel Holley [facility] 09/23/2020 Routine adult history and physical (18-64 yrs) without abnormal findings Medical Established Patient with Miguel Holley [facility] 09/23/2020 Z68.41 - Body mass index [BMI]40.0-44.9, adult Medical Established Patient with Miguel Holley [facility] 09/23/2020 Cough Telemedicine Establi sted Patient with Miguel Holley [facility] 03/19/2020 Exposure to a viral disease Telemedicine Establisted Patient with Miguel Holley [facility] 03/19/2020 Obesity due to excess calories Telemedic ine Establisted Patient with Miguel Holley [facility] 03/19/2020 Z68.37 - Body mass index [BM I] 37.0-37.9, adult Telemedicine Establisted Patient with Miguel Holley [facility] 03/19/2020 Obesity due to excess calories Medical E stablished Patient with Miguel Holley [facility] 03/05/2020 Z68.37 - Body mass index [BM I] 37.0-37.9, adult Medical Established Patient with Miguel Holley [facility] 03/05/2020 Obesity due to excess calories Medical E stablished Patient with Poly Wagonerle [facility] 12/05/2019 R21 - Rash and other nonspecific skin eruption Medical Established Patient with Poly Salvador [facility] 12/05/2019 Z68.35 - Body mass index (BM I) 35.0-35.9, adult Medical Established Patient with Poly Wagonerle [facility] 12/05/2019 Obesity due to excess calories Medical E stablished Patient with Poly Salvador [facility] 11/06/2019 Z68.36 - Body mass index (BM I) 36.0-36.9, adult Medical Established Patient with Poly Salvador [facility] 11/06/2019 Obesity due to excess calories Medical E stablished Patient with Poly Salvador [facility] 10/12/2019 Z68.38 - Body mass index (BM I) 38.0-38.9, adult Medical Established Patient with Poly Salvador [facility] 10/12/2019 L25.5 - Unspecified contact dermatitis due to plants, except food Medical Established Patient with Poly Salvador [facility] 09/14/2019 Obesity due to excess calories Medical E stablished Patient with Poly Salvador [facility] 09/14/2019 Z68.37 - Body mass index (BM I) 37.0-37.9, adult Medical Established Patient with Poly Salvador [facility] 09/14/2019 L25.5 - Unspecified contact dermatitis due to plants, except food Telemedicine with Poly Franco [employer] 09/11/2019 Obesity due to excess calories Telemedic ine with Poly Franco [employer] 09/11/2019 Z68.37 - Body mass index (BM I) 37.0-37.9, adult Telemedicine with Poly Franco [employer] 09/11/2019 Dermatitis due to contact wi th poison spencer Telemedicine with Poly Franco [employer] 09/05/2019 Obesity due to excess calories Telemedic ine with Poly Franco [employer] LO[employer] WORK[employer] 09/05/2019 Z68.37 - Body mass index (BM I) 37.0-37.9, adult Telemedicine with Poly Franco [employer] 09/05/2019 Obesity due to excess calories Medical E stablished Patient with Miguel Holley [employer] 08/17/2019 Z68.37 - Body mass index (BM I) 37.0-37.9, adult Medical Established Patient with Miguel Holley [employer] 08/17/2019 Generalized anxiety disorder BH Establis hed Patient with Anh VIDAL 07/06/2019 Anxiety disorder NOS Medical New Patient with Allyson Everett [employer] WORK[employer] 07/06/2019 Depression Medical New Patient with Allyson Everett [employer] 07/06/2019 Diabetes Risk Test Score was one score Medical New Patient with Allyson Everett [employer] LO[employer] WORK[employer] 07/06/2019 Idiopathic insomnia Medical New Patient with Allyson Everett [employer] LO[employer] WORK[employer] 07/06/2019 Obesity due to excess calories Medical N ew Patient with Allyson [place] [employer] WORKER 07/06/2019 Z68.39 - Body mass index (BM I) 39.0-39.9 adult Medical New Patient with Allyson Nye HEAD LOFT WORKER 07/06/2019 [facility] Work Phone: [phone] 370-352506-08-2020 History general Narrative - Reported Includes: Medical History in patient's chart Description Last Updated Not currently nursing 11/06/2019 Not 11/06/2019 No reported medical history or no signif icant history 07/06/2019 [facility] Work Phone: Evaluation note Includes: Assessments for all patient encounters Findings Encounter Date Assessment of visit for: cristóbal montoya for human immunodeficiency virus Medical Established Patient with Miguel Holley [facility] 09/23/2020 Diabetes Risk Test Score was three score 09/23/2020 Medical Established Patient with Miguel Holley [facility] 09/23/2020 Morbid obesity Medical Established Patient with Miguel Holley [facility] 09/23/2020 Routine adult history and ph ysical (18-64 yrs) without abnormal findings Medical Established Patient with Miguel Holley [employer] LO[employer] WORK[employer] 09/23/2020 Z68.41 - Body mass index [BMI]40.0-44.9, adult Medical Established Patient with Miguel Holley [facility] 09/23/2020 Cough Telemedicine Establi sted Patient with Miguel Holley [facility] 03/19/2020 Exposure to a viral disease Telemedicine Establisted Patient with Miguel Holley [facility] 03/19/2020 Obesity due to excess calories Telemedic ine Establisted Patient with Miguel Holley [facility] 03/19/2020 Z68.37 - Body mass index [BM I] 37.0-37.9, adult Telemedicine Establisted Patient with Miguel Holley [facility] 03/19/2020 Obesity due to excess calories Medical E stablished Patient with Miguel Holley [facility] 03/05/2020 Z68.37 - Body mass index [BM I] 37.0-37.9, adult Medical Established Patient with Miguel Holley [facility] 03/05/2020 Obesity due to excess calories Medical E stablished Patient with Poly Wagonerle [facility] 12/05/2019 R21 - Rash and other nonspec ific skin eruption Medical Established Patient with Poly Salvador [facility] 12/05/2019 Z68.35 - Body mass index (BM I) 35.0-35.9, adult Medical Established Patient with Poly Salvador [facility] 12/05/2019 Obesity due to excess calories Medical E stablished Patient with Poly Salvador [facility] 11/06/2019 Z68.36 - Body mass index (BM I) 36.0-36.9, adult Medical Established Patient with Poly Salvador [facility] 11/06/2019 Obesity due to excess calories Medical E stablished Patient with Poly Salvador [facility] 10/12/2019 Z68.38 - Body mass index (BM I) 38.0-38.9, adult Medical Established Patient with Poly Salvador [facility] 10/12/2019 L25.5 - Unspecified contact dermatitis due to plants, except food Medical Established Patient with Poly Salvador [facility] 09/14/2019 Obesity due to excess calories Medical E stablished Patient with Poly Franco HEAD LOFT WORKER 09/14/2019 Z68.37 - Body mass index (BM I) 37.0-37.9, adult Medical Established Patient with Poly Franco [facility] 09/14/2019 L25.5 - Unspecified contact dermatitis due to plants, except food Telemedicine with oPly Franco [facility] 09/11/2019 Obesity due to excess calories Telemedicine with Poly Franco [facility] 09/11/2019 Z68.37 - Body mass index (BM I) 37.0-37.9, adult Telemedicine with Poly Franco [facility] 09/11/2019 Dermatitis due to contact wi th poison spencer Telemedicine with Poly Franco [facility] 09/05/2019 Obesity due to excess calories Telemedicine with Poly Franco [facility] 09/05/2019 Z68.37 - Body mass index (BM I) 37.0-37.9, adult Telemedicine with Poly Franco [facility] 09/05/2019 Obesity due to excess calories Medical E stablished Patient with Miguel Holley [facility] 08/17/2019 Z68.37 - Body mass index (BM I) 37.0-37.9, adult Medical Established Patient with Miguel Holley [facility] 08/17/2019 Generalized anxiety disorder BH Establis hed Patient with Anh VIDAL 07/06/2019 Anxiety disorder NOS Medical New Patient with Allyson Floyd [facility] 07/06/2019 Depression Medical New Patient with Allyson [place] [employer] WORKER 07/06/2019 Diabetes Risk Test Score was one score M edical New Patient with Allyson [place] [employer] LO[employer] WORKER 07/06/2019 Idiopathic insomnia Medical New Patient with Allysonheidi Floyd HEAD LOFT WORKER 07/06/2019 Obesity due to excess calories Medical N ew Patient with Allyson [place] [employer] LO[employer] WORKER 07/06/2019 Z68.39 - Body mass index (BM I) 39.0-39.9 adult Medical New Patient with Allyson Everett [facility] 07/06/2019 [facility] Work Phone: Evaluation note* Diagnosis Nausea vomiting and diarrhea- Primary Nausea with vomiting Generalized abdominal pain Abdominal pain, generalized documented in this encounter [employer] Phone: evaluation note* Diagnosis Women's annual routine gynecological examination documented in this encounter [employer] Phone: evaluation note* Diagnosis Women's annual routine gynecological examination Intrauterine contraceptive device threads lost, initial encounter [facility] Diagnosis Second trimester state, incidental documented in this encounter [facility]* Diagnosis S/P section Other postprocedural status Postop check Follow-up examination, following unspecified surgery Encounter for weight management documented in this encounter [facility]* Diagnosis Weight gain Other symptoms concerning nutrition, metabolism, and development Encounter for weight management documented in this encounter [facility]* Diagnosis 6 weeks follow-up S/P section Other postprocedural status documented in this encounter [facility]* Diagnosis Encounter for weight management documented in this encounter [facility]* Diagnosis First trimester state, incidental 13 weeks gestation of History of gestational diabetes Personal history of other genital system and obstetric disorders documented in this encounter [facility]* Diagnosis Screening, , for anatomic survey Encounter for anatomic survey Well woman exam with routine gynecological exam Routine gynecological examination STD exposure Vaginal discharge Leukorrhea, not specified as infective Second trimester state, incidental 17 weeks gestation of documented in this encounter [facility]* Diagnosis Second trimester state, incidental 21 weeks gestation of documented [facility] encounter [facility]* Diagnosis Dizziness- Primary Dizziness and giddiness 25 weeks gestation of ([facility]-HCC) Second trimester ([facility]HS-HCC) state, incidental History of gestational diabetes Personal history of other genital system and obstetric disorders Diabetes mellitus screening Screening for diabetes mellitus documented in this encounter [facility]* Diagnosis Elevated glucose tolerance test Impaired glucose tolerance test History of gestational diabetes Personal history of other genital system and obstetric disorders Third trimester ([facility]CC) state, incidental 28 weeks gestation of ([facility]CC) Gestational diabetes mellitus (GDM), antepartum, gestational diabetes method of control unspecified ([facility] documented in [facility] encounter [facility]* Diagnosis Third trimester ([facility]) state, incidental documented [facility] encounter [facility]* Diagnosis Third trimester ([facility]HS-HCC) state, incidental 32 weeks gestation of ([facility]) Gestational diabetes mellitus (GDM), antepartum, gestational diabetes method of control unspecified ([facility]) Hyperglycemia during ([facility]) documented [facility]* Diagnosis Third trimester ([facility]-HCC) state, incidental 34 weeks gestation of ([facility]) documented in this encounter [facility] HealthcareHistory of Present illness Narrative History of Present Illness not supported for this document type No History of Present Illness [facility] [employer] [facility] Work Phone: Hospital Discharge instructions* Attachments The following attachments cannot be sent through Care Everywhere. * Abdominal Pain (Malawian) * Nausea and Vomiting ([place]awian) * Diarrhea ([place]) [facility] [employer] Work Phone: Instructions Instructions not supported for this document type No Instructions [facility] [employer] [facility] Work Phone: Patient problem outcome Narrative Includes: Evaluations & Outcomes for active Goals No Outcomes [facility] Work Phone: Reason for referral (narrative)No Reason for Referral [facility] [employer] [facility] Work Phone: Review of systems Narrative - Reported Review of Systems not supported for this document type No Review of Systems [facility] [employer] [facility] Work Phone: Summary Purpose Family History No Family History Records Found Description Last Updated Maternal history of rheumatoid arthritis 07/06/2019 Maternal history of rheumatologic disord er Fibromyalgia 07/06/2019 Maternal history of systemic lupus eryth ematosus 07/06/2019 Paternal history of type 1 diabetes marino itus 07/06/2019 Advance Directives No Advanced Directives Records FoundDocuments on File Type Date Recorded Patient Audio Visual Collections Coordinator Expl anation Advance Directives and Living Will Power of Nursing Techn Documents on File Type Date Recorded Patient Audio Visual Collections Coordinator Expl anation ACP-Advance Directive ACP-Power of Nursing Techn Documents on File Type Date Recorded Patient Audio Visual Collections Coordinator Expl anation Advance Directives and Living Will Power of Nursing Techn Date Activated Date Inactivated Comments 01/20/2023 7:21 [...] Depression Medical New Patient with Allyson Floyd HEAD LOFT WORKER 07/06/2019 Diabetes Risk Test Score was one score Medical New Patient with Allyson Floyd HEAD LOFT WORKER 07/06/2019 Idiopathic insomnia Medical New Patient with Allyson Floyd [employer] LOFT WORKER 07/06/2019 Obesity due to excess calories Medical N ew Patient with Allyson Floyd HEAD LOFT WORKER 07/06/2019 Z68.39 - Body mass index (BM I) 39.0-39.9 adult Medical New Patient with Allyson Floyd [employer] LOFT WORKER 07/06/2019 Findings Encounter Date Obesity due to excess calories Medical E stablished Patient with Poly Franco [facility] 10/12/2019 Z68.38 - Body mass index (BM I) 38.0-38.9, adult [facility] L25.5 - Unspecified contact dermatitis due to plants, except food Medical Established Patient with Poly Wagonerle [facility] 09/14/2019 Obesity due to excess calories Medical E stablished Patient with Poly Wagonerle [facility] 09/14/2019 Z68.37 - Body mass index (BM I) 37.0-37.9, adult Medical Established Patient with Poly Wagonerle [facility] 09/14/2019 L25.5 - Unspecified contact dermatitis due to plants, except food Telemedicine with Poly Wagonerle [facility] 09/11/2019 Obesity due to excess calories Telemedicine with Poly Wagonerle [facility] 09/11/2019 Z68.37 - Body mass index (BM I) 37.0-37.9, adult Telemedicine with Poly Wagonerle [facility] 09/11/2019 Dermatitis due to contact wi th poison spencer Telemedicine with Poly Salvador [facility] 09/05/2019 Obesity due to excess calories Telemedicine with Poly Wagonerle [facility] 09/05/2019 Z68.37 - Body mass index (BM I) 37.0-37.9, adult Telemedicine with Poly Wagonerle [facility] 09/05/2019 Obesity due to excess calories Medical E stablished Patient with Miguel Holley [facility] 08/17/2019 Z68.37 - Body mass index (BM I) 37.0-37.9, adult Medical Established Patient with Miguelcristal Anguloen HEAD LOFT WORKER 08/17/2019 Generalized anxiety disorder BH Establis hed Patient with Anhbrad Virk CREATIVE SERVICES MANAGER-S 07/06/2019 Anxiety disorder NOS Medical New Patient with Allyson [place] HEAD LOFT WORKER 07/06/2019 Depression Medical New Patient with Allyson [place] HEAD LOFT WORKER 07/06/2019 Diabetes Risk Test Score was one score Medical New Patient with Allyson Everett HEAD LOFT WORKER 07/06/2019 Idiopathic insomnia Medical New Patient with Allyson [place] HEAD LOFT WORKER 07/06/2019 Obesity due to excess calories Medical N ew Patient with Allyson Everett HEAD LOFT WORKER 07/06/2019 Z68.39 - Body mass index (BM I) 39.0-39.9 adult Medical New Patient with Allyson [place] HEAD LOFT WORKER 07/06/2019 Findings Encounter Date Obesity due to excess calories Medical E stablished Patient with Miguel Dell HEAD LOFT WORKER 08/17/2019 Z68.37 - Body mass index (BM I) 37.0-37.9, adult Medical Established Patient with Miguel Dell HEAD LOFT WORKER 08/17/2019 Generalized anxiety disorder BH Establis hed Patient with Anh Virk CREATIVE SERVICES MANAGER-S 07/06/2019 Anxiety disorder NOS Medical New Patient with Allyson Everett HEAD LOFT WORKER 07/06/2019 Depression Medical New Patient with Allyson [place] HEAD LOFT WORKER 07/06/2019 Diabetes Risk Test Score was one score Medical New Patient with Allyson [place] HEAD LOFT WORKER 07/06/2019 Idiopathic insomnia Medical New Patient with Allyson [place] HEAD LOFT WORKER 07/06/2019 Obesity due to excess calories Medical N ew Patient with Allyson Everett HEAD LOFT WORKER 07/06/2019 Z68.39 - Body mass index (BM I) 39.0-39.9 adult Medical New Patient with Allyson [place] HEAD LOFT WORKER 07/06/2019 Findings Encounter Date Dermatitis due to contact wi th poison spencer Telemedicine with Poly Salvador HEAD LOFT WORKER 09/05/2019 Obesity due to excess calories Telemedicine with Poly Salvador [employer] LOFT WORKER 09/05/2019 Z68.37 - Body mass index (BM I) 37.0-37.9, adult Telemedicine with Poly Salvador HEAD LOFT WORKER 09/05/2019 Obesity due to excess calories Medical E stablished Patient with Miguelcristal Holley HEAD LOFT WORKER 08/17/2019 Z68.37 - Body mass index (BM I) 37.0-37.9, adult Medical Established Patient with Miguel Holley HEAD LOFT WORKER 08/17/2019 Generalized anxiety disorder BH Establis hed Patient with Anh Moose CREATIVE SERVICES MANAGER-S 07/06/2019 Anxiety disorder NOS Medical New Patient with Allyson Floyd HEAD LOFT WORKER 07/06/2019 Depression Medical New Patient with Allyson Everett HEAD LOFT WORKER 07/06/2019 Diabetes Risk Test Score was one score Medical New Patient with Allyson Everett HEAD LOFT WORKER 07/06/2019 Idiopathic insomnia Medical New Patient with Allyson [place] HEAD LOFT WORKER 07/06/2019 Obesity due to excess calories Medical N ew Patient with Allyson [place] HEAD LOFT WORKER 07/06/2019 Z68.39 - Body mass index (BM I) 39.0-39.9 adult Medical New Patient with Allyson Floyd HEAD LOFT WORKER 07/06/2019 Findings Encounter Date L25.5 - Unspecified contact dermatitis due to plants, except food [facility] Obesity due to excess calories Telemedicine with Poly [facility] 09/11/2019 Z68.37 - Body mass index (BM I) 37.0-37.9, adult Telemedicine with Poly [facility] 09/11/2019 Dermatitis due to contact wi th poison spencer [facility]/2019 Obesity due to excess calories Telemedicine with Poly [facility] 09/05/2019 Z68.37 - Body mass index (BM I) 37.0-37.9, adult Telemedicine with Poly [facility] 09/05/2019 Obesity due to excess calories Medical E stablished Patient with Miguel Holley [facility] 08/17/2019 Z68.37 - Body mass index (BM I) 37.0-37.9, adult Medical Established Patient with Miguel Dell HEAD LOFT WORKER 08/17/2019 Generalized anxiety disorder BH Establis hed Patient with Anh RIBEIROW-S 07/06/2019 Anxiety disorder NOS Medical New Patient with Allyson Nye HEAD LOFT WORKER 07/06/2019 Depression Medical New Patient with Allyson Everett HEAD LOFT WORKER 07/06/2019 Diabetes Risk Test Score was one score Medical New Patient with Allyson Everett HEAD LOFT WORKER 07/06/2019 Idiopathic insomnia Medical New Patient with Allyson Everett HEAD LOFT WORKER 07/06/2019 Obesity due to excess calories Medical N ew Patient with Allyson Everett HEAD LOFT WORKER 07/06/2019 Z68.39 - Body mass index (BM I) 39.0-39.9 adult Medical New Patient with Allyson Floyd HEAD LOFT WORKER 07/06/2019 Findings Encounter Date L25.5 - Unspecified contact dermatitis due to plants, except food Medical Established Patient with Poly Franco [facility] 09/14/2019 Obesity due to excess calories Medical E stablished Patient with Poly Franco [facility] 09/14/2019 Z68.37 - Body mass index (BM I) 37.0-37.9, adult Medical Established Patient with Poly Franco [facility] 09/14/2019 L25.5 - Unspecified contact dermatitis due to plants, except food [facility] Obesity due to excess calories Telemedicine with Poly [facility] 09/11/2019 Z68.37 - Body mass index (BM I) 37.0-37.9, adult [facility] Dermatitis due to contact wi th poison spencer Telemedicine with Poly Franco [facility] 09/05/2019 Obesity due to excess calories Telemedicine with Poly Franco [facility] 09/05/2019 Z68.37 - Body mass index (BM I) 37.0-37.9, adult Telemedicine with Poly Franco [facility] 09/05/2019 Obesity due to excess calories Medical E stablished Patient with Miguel Holley [facility] 08/17/2019 Z68.37 - Body mass index (BM I) 37.0-37.9, adult Medical Established Patient with Miguel Holley [facility] 08/17/2019 Generalized anxiety disorder BH Establis hed Patient with Anh VIDAL 07/06/2019 Anxiety disorder NOS Medical New Patient with Allyson Everett HEAD LOFT WORKER 07/06/2019 Depression Medical New Patient with Allyson [place] HEAD LOFT WORKER 07/06/2019 Diabetes Risk Test Score was one score Medical New Patient with Allyson [place] HEAD LOFT WORKER 07/06/2019 Idiopathic insomnia Medical New Patient with Allyson [place] HEAD LOFT WORKER 07/06/2019 Obesity due to excess calories Medical N ew Patient with Allyson Everett HEAD LOFT WORKER 07/06/2019 Z68.39 - Body mass index (BM I) 39.0-39.9 adult Medical New Patient with Allyson [place] HEAD LOFT WORKER 07/06/2019 Findings Encounter Date Obesity due to excess calories Medical E stablished Patient with Poly Franco [facility] 11/06/2019 Z68.36 - Body mass index (BM I) 36.0-36.9, adult Medical Established Patient with Poly Franco [facility] 11/06/2019 Obesity due to excess calories Medical E stablished Patient with Poly Franco [facility] 10/12/2019 Z68.38 - Body mass index (BM I) 38.0-38.9, adult Medical [facility]/12/2019 L25.5 - Unspecified contact dermatitis due to plants, except food Medical Established Patient with Poly Franco [facility] 09/14/2019 Obesity due to excess calories Medical E stablished [facility] 09/14/2019 Z68.37 - Body mass index (BM I) 37.0-37.9, adult Medical Established [facility] 09/14/2019 L25.5 - Unspecified contact dermatitis due to plants, except food Telemedicine with Poly [facility] 09/11/2019 Obesity due to excess calories Telemedicine with Poly [facility] 09/11/2019 Z68.37 - Body mass index (BM I) 37.0-37.9, adult Telemedicine with Poly [facility] 09/11/2019 Dermatitis due to contact wi th poison spencer [facility]/2019 Obesity due to excess calories Telemedicine with Poly [facility] 09/05/2019 Z68.37 - Body mass index (BM I) 37.0-37.9, adult [facility] Obesity due to excess calories Medical E stablished Patient with Miguel Holley [facility] 08/17/2019 Z68.37 - Body mass index (BM I) 37.0-37.9, adult Medical Established Patient with Miguel Holley [facility] 08/17/2019 Generalized anxiety disorder BH Establis hed Patient with Anh VIDAL 07/06/2019 Anxiety disorder NOS Medical New Patient with Allyson Floyd [employer] 07/06/2019 Depression Medical New Patient with Allyson [place] [employer] WORK[employer] 07/06/2019 Diabetes Risk Test Score was one score Medical New Patient with Allyson [place] HEAD LOFT WORKER 07/06/2019 Idiopathic insomnia Medical New Patient with Allyson [place] HEAD LOFT WORKER 07/06/2019 Obesity due to excess calories Medical N ew Patient with Allyson Everett HEAD LOFT WORKER 07/06/2019 Z68.39 - Body mass index (BM I) 39.0-39.9 adult Medical New Patient with Allyson Floyd HEAD LOFT WORKER 07/06/2019 Findings Encounter Date Obesity due to excess calories Medical E stablished Patient with Poly Franco HEAD LOFT WORK[employer] 12/05/2019 R21 - Rash and other nonspec ific skin eruption Medical Established Patient with Poly Wagonerle HEAD LOFT WORK[employer] 12/05/2019 Z68.35 - Body mass index (BM I) 35.0-35.9, adult Medical Established Patient with Poly Salvador HEAD LOFT WORK[employer] 12/05/2019 Obesity due to excess calories Medical E stablished Patient with Poly Wagonerle HEAD LOFT WORKER 11/06/2019 Z68.36 - Body mass index (BM I) 36.0-36.9, adult Medical Established Patient with Poly Wagonerle [employer] LO[employer] WORK[employer] 11/06/2019 Obesity due to excess calories Medical E stablished Patient with Poly Wagonerle [facility] 10/12/2019 Z68.38 - Body mass index (BM I) 38.0-38.9, adult Medical Established Patient with Poly Salvador [facility] 10/12/2019 L25.5 - Unspecified contact dermatitis due to plants, except food Medical Established Patient with Poly Wagonerle [facility] 09/14/2019 Obesity due to excess calories Medical E stablished Patient with Poly Salvador [facility] 09/14/2019 Z68.37 - Body mass index (BM I) 37.0-37.9, adult Medical Established Patient with Poly Wagonerle [facility] 09/14/2019 L25.5 - Unspecified contact dermatitis due to plants, except food Telemedicine with Poly Wagonerle [facility] 09/11/2019 Obesity due to excess calories Telemedicine with oPly Wagonerle [facility] 09/11/2019 Z68.37 - Body mass index (BM I) 37.0-37.9, adult Telemedicine with Poly Salvador [facility] 09/11/2019 Dermatitis due to contact wi th poison spencer Telemedicine with Poly Wagonerle [facility] 09/05/2019 Obesity due to excess calories Telemedicine with Poly Salvador [facility] 09/05/2019 Z68.37 - Body mass index (BM I) 37.0-37.9, adult Telemedicine with Poly Wagonerle [facility] 09/05/2019 Obesity due to excess calories Medical E stablished Patient with Miguel Holley [facility] 08/17/2019 Z68.37 - Body mass index (BM I) 37.0-37.9, adult Medical Established Patient with Miguel Holley HEAD LOFT WORKER 08/17/2019 Generalized anxiety disorder BH Establis hed Patient with Anh VIDAL 07/06/2019 Anxiety disorder NOS Medical New Patient with Allyson Floyd HEAD LOFT WORKER 07/06/2019 Depression Medical New Patient with Allyson Floyd HEAD LOFT WORKER 07/06/2019 Diabetes Risk Test Score was one score Medical New Patient with Allyson Floyd HEAD LOFT WORKER 07/06/2019 Idiopathic insomnia Medical New Patient with Allyson Floyd HEAD LOFT WORKER 07/06/2019 Obesity due to excess calories Medical N ew Patient with Allyson Everett HEAD LOFT WORKER 07/06/2019 Z68.39 - Body mass index (BM I) 39.0-39.9 adult Medical New Patient with Allyson Floyd HEAD LOFT WORKER 07/06/2019 Findings Encounter Date Obesity due to excess calories Medical E stablished Patient with Miguel Holley [facility] 03/05/2020 Z68.37 - Body mass index [BM I] 37.0-37.9, adult Medical Established Patient with Miguel Holley [facility] 03/05/2020 Obesity due to excess calories Medical E stablished Patient with Poly Salvador [facility] 12/05/2019 R21 - Rash and other nonspec [facility] skin eruption Medical Established Patient with Poly Salvador HEAD LOFT WORKER 12/05/2019 Z68.35 - Body mass index (BM I) 35.0-35.9, adult Medical Established Patient with Poly Salvador HEAD LOFT WORKER 12/05/2019 Obesity due to excess calories Medical E stablished Patient with Poly Salvador HEAD LOFT WORKER 11/06/2019 Z68.36 - Body mass index (BM I) 36.0-36.9, adult Medical Established Patient with Poly Salvador HEAD LOFT WORKER 11/06/2019 Obesity due to excess calories Medical E stablished Patient with Poly Salvador HEAD LOFT WORKER 10/12/2019 Z68.38 - Body mass index (BM I) 38.0-38.9, adult Medical Established Patient with Poly Salvador HEAD LOFT WORKER 10/12/2019 L25.5 - Unspecified contact dermatitis due to plants, except food Medical Established Patient with Poly Salvador HEAD LOFT WORKER 09/14/2019 Obesity due to excess calories Medical E stablished Patient with Poly Salvador HEAD LOFT WORKER 09/14/2019 Z68.37 - Body mass index (BM I) 37.0-37.9, adult Medical Established Patient with Poly Franco [facility] 09/14/2019 L25.5 - Unspecified contact dermatitis due to plants, except food Telemedicine with Poly Franco [facility] 09/11/2019 Obesity due to excess calories Telemedicine with Poly Franco [facility] 09/11/2019 Z68.37 - Body mass index (BM I) 37.0-37.9, adult Telemedicine with Poly Franco [facility] 09/11/2019 Dermatitis due to contact wi th poison spencer Telemedicine with Poly Franco [facility] 09/05/2019 Obesity due to excess calories Telemedicine with Poly Franco [facility] 09/05/2019 Z68.37 - Body mass index (BM I) 37.0-37.9, adult Telemedicine with Poly Franco [facility] 09/05/2019 Obesity due to excess calories Medical E stablished Patient with Miguel Holley [facility] 08/17/2019 Z68.37 - Body mass index (BM I) 37.0-37.9, adult Medical Established Patient with Miguel Dell [facility] 08/17/2019 Generalized anxiety disorder BH Establis hed Patient with Anh VIDAL 07/06/2019 Anxiety disorder NOS Medical New Patient with Allyson [place] [facility] 07/06/2019 Depression Medical New Patient with Allyson [place] [facility] 07/06/2019 Diabetes Risk Test Score was one score Medical New Patient with Allyson [place] [facility] 07/06/2019 Idiopathic insomnia Medical New Patient with Allyson Everett [facility] 07/06/2019 Obesity due to excess calories Medical N ew Patient with Allyson Everett [facility] 07/06/2019 Z68.39 - Body mass index (BM I) 39.0-39.9 adult Medical New Patient with Allyson [place] [facility] 07/06/2019 Findings Encounter Date Cough Telemedicine Establi sted Patient with Miguel Holley [facility] 03/19/2020 Exposure to a viral disease Telemedicine Establisted Patient with Miguel Dell [facility] 03/19/2020 Obesity due to excess calories Telemedic ine Establisted Patient with Miguel Dell [facility] 03/19/2020 Z68.37 - Body mass index [BM I] 37.0-37.9, adult Telemedicine Establisted Patient with Miguel Dell [facility] 03/19/2020 Obesity due to excess calories Medical E stablished Patient with Miguel Holley [facility] 03/05/2020 Z68.37 - Body mass index [BM I] 37.0-37.9, adult Medical Established Patient with Miguel Holley [facility] 03/05/2020 Obesity due to excess calories Medical E stablished Patient with Poly Franco HEAD LOFT WORKER 12/05/2019 R21 - Rash and other nonspec [facility] skin eruption Medical Established Patient with Polykamryn Wagonerle HEAD LOFT WORKER 12/05/2019 Z68.35 - Body mass index (BM I) 35.0-35.9, adult Medical Established Patient with Poly Salvador HEAD LOFT WORKER 12/05/2019 Obesity due to excess calories Medical E stablished Patient with Poly Salvador HEAD LOFT WORKER 11/06/2019 Z68.36 - Body mass index (BM I) 36.0-36.9, adult Medical Established Patient with Poly Wagonerle HEAD LOFT WORKER 11/06/2019 Obesity due to excess calories Medical E stablished Patient with Poly Wagonerle [facility] 10/12/2019 Z68.38 - Body mass index (BM I) 38.0-38.9, adult Medical Established Patient with Polykamryn Wagonerle [facility] 10/12/2019 L25.5 - Unspecified contact dermatitis due to plants, except food Medical Established Patient with Poly Wagonerle [facility] 09/14/2019 Obesity due to excess calories Medical E stablished Patient with Poly Salvador [facility] 09/14/2019 Z68.37 - Body mass index (BM I) 37.0-37.9, adult Medical Established Patient with Poly Wagonerle [facility] 09/14/2019 L25.5 - Unspecified contact dermatitis due to plants, except food Telemedicine with Poly Wagonerle [facility] 09/11/2019 Obesity due to excess calories Telemedicine with Poly Wagonerle [facility] 09/11/2019 Z68.37 - Body mass index (BM I) 37.0-37.9, adult Telemedicine with Polykamryn Wagonerle [facility] 09/11/2019 Dermatitis due to contact wi th poison spencer Telemedicine with Poly Wagonerle [facility] 09/05/2019 Obesity due to excess calories Telemedicine with Poly Salvador [facility] 09/05/2019 Z68.37 - Body mass index (BM I) 37.0-37.9, adult Telemedicine with Poly Wagonerle [facility] 09/05/2019 Obesity due to excess calories Medical E stablished Patient with Miguel Holley [facility] 08/17/2019 Z68.37 - Body mass index (BM I) 37.0-37.9, adult Medical Established Patient with Miguel Holley HEAD LOFT WORKER 08/17/2019 Generalized anxiety disorder BH Establis hed Patient with Anh VIDAL 07/06/2019 Anxiety disorder NOS Medical New Patient with Allyson Floyd HEAD LOFT WORKER 07/06/2019 Depression Medical New Patient with Allyson Floyd HEAD LOFT WORKER 07/06/2019 Diabetes Risk Test Score was one score Medical New Patient with Allyson Floyd HEAD LOFT WORKER 07/06/2019 Idiopathic insomnia Medical New Patient with Allyson Floyd HEAD LOFT WORKER 07/06/2019 Obesity due to excess calories Medical N ew Patient with Allyson Floyd HEAD LOFT WORKER 07/06/2019 Z68.39 - Body mass index (BM I) 39.0-39.9 adult Medical New Patient with Allyson Floyd HEAD LOFT WORKER 07/06/2019 Diagnosis COVID-19 Fatty liver Other chronic [...] Everywhere. * Coronavirus Disease (COVID-19): General Info (Malawian) documented in this encounter Additional Source Comments INFORMATION SOURCE (unrecogn ized section and content) DATE CREATED AUTHOR 11/24/2017 [facility] DATE CREATED AUTHOR AUTHOR'S ORGANIZ ATION 08/26/2018 [facility] DATE CREATED AUTHOR AUTHOR'S ORGANIZ ATION 09/24/2020 [facility] DATE CREATED AUTHOR AUTHOR'S ORGANIZ ATION 10/30/2024 [facility] DATE CREATED AUTHOR AUTHOR'S ORGANIZ ATION 01/24/2025 [facility] dical Specialists EPIC Evaluations & [...] TRANSVAGINAL, NON OB Dana Akins MD [address] [place] [address] [facility] Ultrasound [address] [place] [address] Reason Comments Emesis multiple episodes si nce [...] dose 0126 (Given - Provid er: Lina M Tiffany) Care Teams (unrecognized sec tion and content) Machinist Bench Relationship Specialty Start Date End Date Miguel Holley, MINERAL 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 [facility] PCP - General Family Medicine 04/08/20 Machinist Bench Relationship Specialty Start Date End Date Miguel Holley, MINERAL 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 [facility] PCP - General Family Medicine 04/08/20 Machinist Bench Relationship Specialty Start Date End Date Miguel Holley, MINERAL 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 [facility] PCP - General Family Medicine 04/08/20 Machinist Bench Relationship Specialty Start Date End Date Miguel Holley, MINERAL 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 [facility] PCP - General Family Medicine 04/08/20 [...] BE BASED ON THE PRIMARY CLINICAL RECORDS. [facility] provides no warranty or guarantee of the accuracy or completeness of information in this document.
== END 2025-02-06 08:50 | disposition home or self-care (01) ==
LOC: FBCO 08:04 → FBC 08:06
PROVIDERS: Visit Provider Obstetrics & Gynecology
DX: O24.419 Gestational diabetes mellitus in pregnancy, unspecified control (principal); Z3A.36 36 weeks gestation of pregnancy
CPT/HCPCS: 59025; 87081

== ENCOUNTER 2025-02-06 12:03 | Outpatient (REF) | payer MEDICAID, SELFPAY ==
--- OUTSIDE RECORDS SUMMARY | 2025-01-23 09:50 | XMS_ITS | Encounter Summary ---
Author Organization [facility] Address [address] [place] [address] Care Team Providers Care Rebrander Name Role Phone Unavailable Primary Care Provider Unavailabl e Reason for Visit * Reason Comments Routine Visit Encounter Details Date Type Department Care Team (Late st Contact Info) Description 01/23/2025 9:50 AM EDT Routine [facility] [address] [place] [address] Latasha Padgett PA [address] [place], [facility]11 Third trimester ([facility]); 34 weeks gestation of ([facility]) Social History Tobacco Use Types Packs/Day [...] AM EDT Reason for Appointment: Patient ID: Estefanai Cedeño is a 29 y.o. female who [...] Excessive growth affecting management of mother, antepartum ([facility]) 12/06/2023 Third trimester ([facility]) 12/06/2023 No Additional Past Medical History [...] ASSESSMENT & PLAN ICD-10-CM 1. Third trimester ([facility]) Z34.93 CANCELED: POCT urinalysis dipstick manually resulted 2. 34 weeks gestation of ([facility]) Z3A.34 CANCELED: POCT urinalysis dipstick manually resulted [...] Care Team (Late st Contact Info) Description 02/13/2025 9:10 AM EDT Routine NOMJean Carlos CESAR [address] [place] [phone] Aditya Cervantes DO [address] [place], [place] [phone] 02/28/2025 9:50 AM EDT Office Visit DENISE CESAR [address] [place] [address] Nedra Raymond NP [address] [place] [phone] documented as of this encounter Visit Diagnoses Diagnosis Third trimester ([facility]) state, incidental 34 weeks gestation of ([facility]) documented in this encounter
--- OUTSIDE RECORDS SUMMARY | 2025-02-06 10:10 | XMS_ITS | Encounter Summary ---
Author Organization [facility] Address [address] [place] [address] Care Team Providers Care Perinatal Breastfeeding Assistant Name Role Phone Unavailable Primary Care Provider Unavailabl e Reason for Visit * Reason Comments Routine Visit Encounter Details Date Type Department Care Team (Late st Contact Info) Description 02/06/2025 10:10 AM EDT Routine [facility] [address] [place] [id number] Aditya Cervantes DO [address] [facility] [place]issa [place], [facility]11 Third trimester ([facility]); 36 weeks gestation of ([facility]) Social History Tobacco Use Types Packs/Day [...] Sign Reading Time Taken Comments Blood Pressure 126/78 02/06/2025 9:29 AM EDT Pulse - - Temperature - - Respiratory Rate - - Oxygen Saturation - - Inhaled Oxygen Concentration - - Weight 126 kg (277 lb) 02/06/2025 9:29 AM EDT Height - - Body Mass Index 43.38 01/10/2024 8:56 AM EDT documented in this encounter Progress Notes * Lindsey Dong LPN - 02/06/2025 10:10 AM EDT Reason for Appointment: Patient ID: [...] Excessive growth affecting management of mother, antepartum ([facility]) 12/06/2023 Third trimester ([facility]) 12/06/2023 No Additional Past Medical History [...] appearance. She is well-developed. Genitourinary: Vulva normal. Cardiovascular: Rate and Rhythm: Normal rate and [...] nursing note reviewed. Exam conducted with a rock climbing team member present. Vitals: Estimated body mass index is 43.38 kg/m?? as calculated from the following: Height as of 01/10/24: 5' 7 . Weight as of this encounter: 277 lb. BP: 126/78 No LMP recorded. Patient is . ASSESSMENT & PLAN ICD-10-CM 1. Third trimester ([facility]) Z34.93 POCT urinalysis dipstick manually resulted CULTURE, GROUP B STREP WITH SUSCEPTIBLITY CULTURE, GROUP B STREP WITH SUSCEPTIBLITY 2. 36 weeks gestation of ([facility]) Z3A.36 Patient is doing well but has complaints of being tired and having maternal discomfort due to . Patient verbalized frequent movement and was instructed to perform kick counts three times per day. labor precautions were given, LARC consent was signed/declined, and GBS was obtained. Glucose log reviewed. Pt advised to get better control with sugars. Orders Placed This Encounter Procedures CULTURE, GROUP B STREP WITH SUSCEPTIBLITY POCT urinalysis dipstick manually resulted Follow Up: Patient is to return to office in 1 week for routine OB appointment Documented by Lindsey Dong LPN on behalf of: Aditya Cervantes DO documented in this encounter Plan of Treatment Upcoming Encounters Date Type Department Care Team (Late st Contact Info) Description 02/13/2025 9:10 AM EDT Routine [facility] [address] [facility] [place] [address] Aditya Cervantes DO [address] [place] [address] 02/28/2025 9:50 AM EDT Office Visit DENISE CESAR [address] [place] [address] Nedra Raymond, WEB OFFSET PRESS FEEDER [address] [place] [address] Scheduled Orders Name Type Priority Associated Diagnoses Orde r Schedule CULTURE, GROUP B STREP WITH SUSCEPTIBLITY Lab Routine Third trimester ([facility]) Expected: 02/06/2025, Expires: 02/06/2026 documented as of this encounter Visit Diagnoses Diagnosis Third trimester ([facility]) state, incidental 36 weeks gestation of ([facility]) documented in this encounter
--- OUTSIDE RECORDS SUMMARY | 2025-02-06 12:06 | XMS_ITS | Encounter Summary ---
Author Organization [facility] Address [address] [place] [address] Care Team Providers Care Inspector Dials Name Role Phone Unavailable Primary Care Provider Unavailabl e Encounter Details Date Type Department Care Team (Late st Contact Info) Description 12/15/2023 Abstract NOMJean Carlos CESAR [address] [place] [address] Trini Aquino LPN [address] [facility] Merissa [facility] Social [...] Description 02/13/2025 9:10 AM EDT Routine DENISE CEASR [address] [place] [address] [place] [address] Aditya Cervantes, DO [address] [place], [place] [id number] 02/28/2025 9:50 AM EDT Office Visit DENISE CESAR [address] [place] [address] [place] [address] Nedra Raymond, TANK BUILDER AND ERECTOR [address] [place] [phone] documented as of this encounter Visit Diagnoses Not on filedocumented in this encounter
--- OUTSIDE RECORDS SUMMARY | 2025-02-06 12:06 | XMS_ITS | Encounter Summary ---
Author Organization [facility] Address [address] [place] [address] Care Team Providers Care Printer Operator Name Role Phone Unavailable Primary Care Provider Unavailabl e Encounter Details Date Type Department Care Team (Late st Contact Info) Description 10/31/2024 Abstract DENISE CESAR [facility] [place] [address] Aditya Cervantes, DO [address] [place] [address] Social History Tobacco Use Types Packs/Day [...] 02/13/2025 9:10 AM EDT Routine DENISE CESAR [facility] [place] [address] Aditya Cervantes, DO [address] [place] [address] 02/28/2025 9:50 AM EDT Office Visit DENISE CESAR [facility] [place] [address] Nedra Raymond, DIRECTOR OF SAFETY AND SECURITY [address] [place] [address] documented as of this encounter Visit Diagnoses Not on filedocumented in this encounter
--- OUTSIDE RECORDS SUMMARY | 2025-02-06 12:06 | XMS_ITS | Encounter Summary ---
Author Organization [facility] Address [address] [place] [address] Care Team Providers Care Magazine Publisher Name Role Phone Unavailable Primary Care Provider Unavailabl e Encounter Details Date Type Department Care Team (Late st Contact Info) Description 12/23/2023 Clinisync Result Encounter [facility] External Department Unsolicited Bruce Cervantes DO [address] [place], [place] [id number] Social History Tobacco Use Types Packs/Day Years [...] 9:10 AM EDT Routine NOMJean Carlos CESAR [address] [place], [place] [address] [address] Bruce Cervantes DO [address] [place], [place] [phone] 02/28/2025 9:50 AM EDT Office Visit NOMJean Carlos CESAR [address] [facility] [place] [address] Nedra Raymond, ACTIVITIES OFFICER [address] [place] [address] documented as of this encounter Procedures Procedure Name Priority Date/Time Associated Diagnosis Comments US OB BPP W NON-STRESS 12/23/2023 10:41 AM EDT documented in this encounter Results * US OB BPP W NON-STRESS (12/23/2023 10:41 AM EDT) Anatomical Region Laterality Modality Other 12/23/2023 10:4 1 AM EDT Narrative 12/23/2023 10:43 [place] [address] Ultrasound Report Signed Patient: ESTEFANIA CEDEÑO MR#: [id number] : 1995 Acct:[id number] Age/Sex: 28 / F ADM Date: 12/23/23 Loc: [facility] 254-[address]: Bruce Cervantes D.O. Ordering Physician: Bruce Cervantes D.O. Date of Service: 12/23/23 Procedure(s): US OB BPP w non-stress Accession Number(s): [id number] cc: Bruce Cervantes D.O.; Physician,Non-Staff M.D. [place] [address] Patient Name: ESTEFANIA CEDEÑO MRN: [id number] date: 1995 Sex: F Assigned Patient Location: [facility] Current Patient Location: [facility] Accession/Order Number: [id number] Exam Date: 12/23/2023 10:00 Report Date: 12/23/2023 [...] Signed By: 12/23/23 1043 DD/ 1041 TD/TT: Corporate Ethics Officer: Procedure Note Radiology, Radiologist, - 12/23/2023 [place] [address] Ultrasound Report Signed Patient: TRINITY CEDEÑO#: [id number] : 1995Acct:[id number] Age/Sex: 28 / FADM Date: 12/23/23 Loc: [facility] 254-[address]: Bruce Cervantes D.O. Ordering Physician: Bruce Cervantes D.O. Date of Service: 12/23/23 Procedure(s): US OB BPP w non-stress Accession Number(s): [id number] cc: Bruce Cervantes D.O.; Physician,Non-Staff Roberto [address] [place] [address] Patient Name: ESTEFANIA CEDEÑO MRN: [id number] date: 1995 Sex: F Assigned Patient Location: [facility] Current Patient Location: [facility] Accession/Order Number: [id number] Exam Date: 12/23/2023 10:00 Report Date: 12/23/2023 [...] M.D. Signed By:12/23/23 1043 DD/ 1041 TD/TT: Corporate Ethics Officer: us Bruce Cervantes DO [facility] Final Result documented in this encounter Visit Diagnoses Not on filedocumented in this encounter
--- OUTSIDE RECORDS SUMMARY | 2025-02-06 12:06 | XMS_ITS | Encounter Summary ---
Author Organization [facility] Address [address] [place] [address] Care Team Providers Care Block Breaker Name Role Phone Unavailable Primary Care Provider Unavailabl e Encounter Details Date Type Department Care Team (Late st Contact Info) Description 12/30/2023 Clinisync Result Encounter [facility] External Department Unsolicited Bruce Cervantes DO [address] [place], [place] [phone] Social History Tobacco Use Types Packs/Day Years [...] 9:10 AM EDT Routine NOMJean Carlos CESAR [address] [place], [place] [address] [address] Bruce Cervantes DO [address], [place] [phone] 02/28/2025 9:50 AM EDT Office Visit [facility] [address] [facility] [place] [address] Nedra Raymond, WEB CONTENT EXECUTIVE [address] [place] [phone] documented as of this encounter Procedures Procedure Name Priority Date/Time Associated Diagnosis Comments US OB BPP W NON-STRESS 12/30/2023 12:19 PM EDT documented in this encounter Results * US OB BPP W NON-STRESS (12/30/2023 12:19 PM EDT) Anatomical Region Laterality Modality Other 12/30/2023 12:1 9 PM EDT Narrative 12/30/2023 12:22 [place] [address] Ultrasound Report Signed Patient: ESTEFANIA CEDEÑO MR#: [id number] : 1995 Acct:[id number] Age/Sex: 28 / F ADM Date: 12/30/23 Loc: US Attending Dr: Bruce Cervantes D.O. Ordering Physician: Bruce Cervantes D.O. Date of Service: 12/30/23 Procedure(s): US OB BPP w non-stress Accession Number(s): [id number] cc: Bruce Cervantes D.O.; Physician,Non-Staff M.DAsiya [place] [id number] Patient Name: ESTEFANIA CEDEÑO MRN: [id number] date: 1995 Sex: F Assigned Patient Location: [facility] Current Patient Location: Accession/Order Number: [id number] Exam Date: 12/30/2023 10:17 Report Date: 12/30/2023 [...] Signed By: 12/30/23 1222 DD/ 1219 TD/TT: Examination Supervisor: Procedure Note Radiology, Radiologist, - 12/30/2023 [place] [address] Ultrasound Report Signed Patient: TRINITY CEDEÑO#: [id number] : 1995Acct:[id number] Age/Sex: FADM Date: 12/30/23 Loc: US Attending Dr: Bruce Cervantes D.O. Ordering Physician: Bruce Cervantes D.O. Date of Service: 12/30/23 Procedure(s): US OB BPP w non-stress Accession Number(s): [id number] cc: Bruce Cervantes D.O.; Physician,Non-Staff Roberto The [place] [id number] Patient Name: ESTEFANIA CEDEÑO MRN: [facility]:[id number] date: 1995 Sex: F Assigned Patient Location: [facility] Current Patient Location: Accession/Order Number: [id number] Exam Date: 12/30/2023 10:17 Report Date: 12/30/2023 [...] M.D. Signed By:12/30/23 1222 DD/ 1219 TD/TT: Examination Supervisor: us Bruce Cervantes DO [facility] Final Result documented in this encounter Visit Diagnoses Not on filedocumented in this encounter
--- OUTSIDE RECORDS SUMMARY | 2025-02-06 12:06 | XMS_ITS | Encounter Summary ---
Author Organization [facility] Address [address] [place] [address] Care Team Providers Care Editor Greeting Card Name Role Phone Unavailable Primary Care Provider Unavailabl e Encounter Details Date Type Department Care Team (Late st Contact Info) Description 12/15/2023 Clinisync Result Encounter NOMS External Department Unsolicited Bruce Cervantes DO [address], [place] [phone] Social History Tobacco Use Types Packs/Day Years [...] Info) Description 02/13/2025 9:10 AM EDT Routine [facility] Gia C[facility] [address] [place], [place] [address] [address] Bruce Cervantes DO [address] [place], [place] [phone] 02/28/2025 9:50 AM EDT Office Visit [facility]S Gia CORONAGYN [address] [place] [address] Nedra Raymond, LEAD MEDICAL TECHNOLOGIST [address] [place] [phone] documented as of this encounter Procedures Procedure Name Priority Date/Time Associated Diagnosis Comments US OB GROWTH 12/15/2023 12:01 PM EDT [facility] BOX TEST SENT OUT Routine 12/15/2023 11:10 AM EDT documented in this encounter Results * US OB GROWTH (12/15/2023 12:01 PM EDT) Anatomical Region Laterality Modality Other 12/15/2023 12:0 1 PM EDT Narrative 12/15/2023 12:04 [place] [address] Ultrasound Report Signed Patient: ESTEFANIA CEDEÑO MR#: [id number] : 1995 Acct:[id number] Age/Sex: 28 / F ADM Date: 12/15/23 Loc: NOMS Attending Dr: Bruce Cervantes D.O. Ordering Physician: Bruce Cervantes D.O. Date of Service: 12/15/23 Procedure(s): US OB growth Accession Number(s): [id number] cc: Bruce Cervantes D.O.; Physician,Non-Staff M.DAsiya [place] [address] Patient Name: ESTEFANIA CEDEÑO MRN: [facility]:[id number] date: 1995 Sex: F Assigned Patient Location: [facility] Current Patient Location: [facility] Accession/Order Number: [id number] Exam Date: 12/15/2023 10:33 Report Date: 12/15/2023 [...] Dr. Cervantes was notified of findings by yacht rigger at time of imaging. Electronically authenticated by: ED KRUEGER Date: 12/15/2023 12:01 Dictated By: Ed Krueger M.D. Signed By: 12/15/23 120 DD/ 120 TD/TT: Malt Specifications Control Assistant: Procedure Note Radiology, Radiologist, MD - 12/15/2023 [place] [address] Ultrasound Report Signed Patient: TRINITY CEDEÑO#: [id number] : 1995Acct:[id number] Age/Sex: M Date: 12/15/23 Loc: NOMS Attending Dr: Bruce Cervantes D.O. Ordering Physician: Bruce Cervantes D.O. Date of Service: 12/15/23 Procedure(s): US OB growth Accession Number(s): [id number] cc: Bruce Cervantes D.O.; Physician,Non-Staff M.Aminata The [place] [address] Patient Name: ESTEFANIA CEDEÑO MRN: [facility]:[id number] date: 1995 Sex: F Assigned Patient Location[facility] Current Patient Location: [facility] Accession/Order Number: [id number] Exam Date: 12/15/2023 10:33 Report Date: 12/15/2023 [...] Dr. Cervantes was notified of findings by yacht rigger at time of imaging. Electronically authenticated by: ED KRUEGER Date: 12/15/2023 12:01 Dictated By: Ed Krueger M.D. Signed By:12/15/23 1204 DD/ 1201 TD/TT: Malt Specifications Control Assistant: us Brucemaame Buenrostroo DO [facility] Final Result * [facility] [...]
--- OUTSIDE RECORDS SUMMARY | 2025-02-06 12:06 | XMS_ITS | Encounter Summary ---
Author Organization [facility] Address [address] [facility] [place] [address] Care Team Providers Care Billet Sawyer Name Role Phone Unavailable Primary Care Provider Unavailabl e Encounter Details Date Type Department Care Team (Late st Contact Info) Description 12/21/2023 Abstract NOMJean Carlos CESAR [address] [facility] [place] [address] Hedy Singh LPN [address] [place] [address] Social History Tobacco Use Types [...] 9:10 AM EDT Routine NOMJean Carlos CESAR [address] [place] [address] [place] [address] Aditya Cervantes, DO [address] [facility] [place] [address] 02/28/2025 9:50 AM EDT Office Visit NOMJean Carlos CESAR [address] [facility] [place] [address] Nedra Raymond, CHILDR[employer] DIRECTOR [address] [facility] [place] [address] documented as of this encounter Visit Diagnoses Not on filedocumented in this encounter
--- OUTSIDE RECORDS SUMMARY | 2025-02-06 12:06 | XMS_ITS | Encounter Summary ---
Author Organization [facility] Address [address] [place] [address] Care Team Providers Care Time Piece Repairer Name Role Phone Unavailable Primary Care Provider Unavailabl e Encounter Details Date Type Department Care Team (Late st Contact Info) Description 11/28/2024 Abstract DENISE CESAR [facility] [place] [address] Aditya Cervantes, DO [address] [place] [address] Social History Tobacco Use Types Packs/Day [...] 02/13/2025 9:10 AM EDT Routine DENISE CESAR [facility] [place] [address] Aditya Cervantes, DO [address] [place] [address] 02/28/2025 9:50 AM EDT Office Visit DENISE CESAR [facility] [place] [address] Nedra Raymond, GENERAL HOUSE WORKER [address] [place] [address] documented as of this encounter Visit Diagnoses Not on filedocumented in this encounter
--- OUTSIDE RECORDS SUMMARY | 2025-02-06 12:06 | XMS_ITS | Clinical Summary ---
Author Organization [facility] Address [address] [place] [address] Care Team Providers Care [place] Actor Name Role Phone Unavailable Primary Care Provider Unavailabl e Allergies Active Allergy Reactions Criticality Noted Date Comments Other 04/18/2024 NUTS Triamcinolone Other,Hives High 10/13/2013 Had to have reconstructive surgery. Dimpling of the skin Medications Vit-Fe Fumarate-FA (PNV Plus Multivitamin) 27-1 MG tabletIndicatio ns:Encounter for supervision of normal first in first trimester ([facility]) Take 1 tablet by mouth Daily 30 tablet 11 5 Active aspirin 81 MG EC tablet Take 81 mg by mouth Daily Active Continuous Glucose Transmitter (Dexcom G6 transmitter) miscIndications :Gestational diabetes mellitus (GDM), antepartum, gestational diabetes method of control unspecified ([facility]) Use as instructed 1 each 5 Active metFORMIN XR (Glucophage-XR) 500 MG 24 hr tabletIndicatio ns:Hyperglycemi a during ([facility]) Take 1 tablet (500 mg) by mouth in the evening. Take with meals Do not crush, chew, or split. 30 tablet 11 5 02/09/20 25 Active Continuous Glucose Sensor (Dexcom G6 Sensor) miscIndications :Elevated glucose tolerance test,28 weeks gestation of ([facility]),Gesta tional diabetes mellitus (GDM), antepartum, gestational diabetes method of control unspecified ([facility]) 1 each Every 10 (ten) days 3 each 3 5 Active Continuous Glucose Sensor (Dexcom G6 Sensor) miscIndications :Elevated glucose tolerance test,28 weeks gestation of ([facility]),Gesta tional diabetes mellitus (GDM), antepartum, gestational diabetes method of control unspecified ([facility]) 1 each Every 10 (ten) days 3 each 3 5 01/19/20 25 Discontin ued(Reord er) Resolved Problems Problem Noted Date Diagnosed Date Resolved Date Excessive growth affec ting management of mother, antepartum ([facility]) 12/06/2023 01/03/20 24 Third trimester ([facility]) 12/06/2023 01/03/2024 Encounters Date Type Department Care Team Description 02/06/2025 10:10 AM EDT Routine [facility] CES[facility] [address] [place] [address] Bruce Cervantes, DO Third trimester ([facility]); 36 weeks gestation of ([facility]) 02/06/2025 Bamboo flowsheet [facility] CESAR [address] [place] [address] Bruce Cervantes, 02/02/2025 Clinisync Result Encounter NOMS External Department Unsolicited Bruce Cervantes, DO 01/26/2025 Clinisync Result Encounter NOMS External Department Unsolicited Bruce Cervantes, DO 01/26/2025 Clinisync Result Encounter NOMS External Department Unsolicited Bruce Cervantes, DO 01/23/2025 9:50 [place] [address] Latasha Padgett PA Third trimester ([facility]); 34 weeks gestation of ([facility]) 01/23/2025 Bamboo flowsheet [facility] [address] [place] [address] Latasha Padgett PA 01/19/2025 Clinisync Result Encounter NOMS External Department Unsolicited Bruce Cervantes, DO 01/18/20[place] [address] Cammie Polo MA Elevated glucose tolerance test; 28 weeks gestation of ([facility]); Gestational diabetes mellitus (GDM), antepartum, gestational diabetes method of control unspecified ([facility]) 01/09/2025 11:10 AM EDT Routine [facility] [address] [place] [address] Bruce Cervantes, DO Third trimester ([facility]); 32 weeks gestation of ([facility]); Gestational diabetes mellitus (GDM), antepartum, gestational diabetes method of control unspecified ([facility]); Hyperglycemia during ([facility]) 01/09/2025 Abstract [facility] [address] [place] [address] Bruce Cervantes, DO 01/09/2025 Abstract [facility] [address] [facility] [place] [address] Bruce Cervantes, 01/09/2025 Bamboo flowsheet [facility] [address] [facility] [place] [address] Bruce Cervantes, 12/27/2024 11:00 AM EDT Ancillary Procedure [facility] [address] [place] [address] Elevated glucose tolerance test; Gestational diabetes mellitus (GDM), antepartum, gestational diabetes method of control unspecified ([facility]) 12/27/2024 10:20 AM EDT Routine [facility] [address] [place] [address] Latasha Padgett PA Third trimester ([facility]) 12/27/2024 Bamboo flowsheet [facility] [address] [place] [phone] Latasha Padgett PA 12/19/2024 Telephone [facility]ON[facility] [address] [place] [address] Christ Cammie, MA 12/13/2024 1:40 [place] [address] Bruce Cervantes DO Elevated glucose tolerance test; History of gestational diabetes; Third trimester ([facility]); 28 weeks gestation of ([facility]); Gestational diabetes mellitus (GDM), antepartum, gestational diabetes method of control unspecified ([facility]) 12/13/2024 [place] [address] Hedy Singh LPN GLUCOSE TOLERANCE 3 HOUR 12/12/2024 Clinisync Result Encounter NOMS External Department Unsolicited Bruce Cevrantes, 12/05/2024 Clinisync Result Encounter NOMS External Department Unsolicited Latasha Padgett PA 12/05/2024 Clinisync Result Encounter NOMS External Department Unsolicited Bruce Cervantes DO 11/28/2024 [place] [phone] Bruce Cervantes DO 11/22/2024 1:50 PM [place] [address] Bruce Cervantes DO Dizziness (Primary Dx); 25 weeks gestation of ([facility]); Second trimester ([facility]); History of gestational diabetes; Diabetes mellitus screening 11/22/2024 [place] [phone] Bruce Cervantes DO from Last 3 Months [...] (277 lb) 02/06/2025 9:29 AM EDT Height 170.2 cm (5' 7 ) 01/10/2024 8:56 AM EDT Body Mass Index 43.38 01/10/2024 8:56 AM EDT Plan of Treatment Upcoming Encounters Date Type Department Care Team (Late st Contact Info) Description 02/13/2025 9:10 AM EDT Routine NOMJean Carlos CESAR [address] [facility] [place] [address] Bruce Cervantes DO [address] [facility] [address] [place], [place] [address] 02/28/2025 9:50 AM EDT Office Visit DENISE CESAR [address] [facility] [place] [phone] Nedra Raymond, CHIEF DEPUTY [address] [facility] [address] Health Maintenance Due Date Last Done Comments Influenza Vaccine (#1) 2025 Procedures Procedure Name Priority Date/Time Associated Diagnosis Comments US OB BPP W NON-STRESS 02/02/2025 10:17 AM EDT US OB GROWTH 01/26/2025 11:00 AM EDT US OB BPP W NON-STRESS 01/26/2025 11:00 AM EDT US OB BPP W NON-STRESS 01/19/2025 2:26 PM EDT POCT URINALYSIS DIPSTICK Routine 01/09/2025 11:28 AM EDT Third trimester ([facility]) US OB FOLLOW UP TRANSABDOMINAL APPROACH [...] 2:36 PM EDT 25 weeks gestation of ([facility]) Second trimester ([facility]) History of gestational diabetes from Last 3 Months Results * US OB BPP W NON-STRESS (02/02/2025 10:17 AM EDT) Only the most recent of3 resultswithin the time period is included. Anatomical Region Laterality Modality Other 02/02/2025 10:1 7 AM EDT Narrative 02/02/2025 10:20 AM EDT [address] [address] Ultrasound Report Signed Patient: ESTEFANIA FLOREZ MR#: [id number] : 1995 Acct:[id number] Age/Sex: 29 / F ADM Date: 02/02/25 Loc: US Attending Dr: Bruce Cervantes D.O. Ordering Physician: Bruce Cervantes D.O. Date of Service: 02/02/25 Procedure(s): US OB BPP w non-stress Accession Number(s): [id number] cc: Bruce Cervantes D.O.; Physician,Non-Staff Roberto [place] [id number] Patient Name: ESTEFANIA FLOREZ MRN: [facility]:[id number] date: 1995 Sex: F Assigned Patient Location: [facility] Current Patient Location: Accession/Order Number: [id number] Exam Date: 02/02/2025 09:12 Report Date: 02/02/2025 10:17 At the request of: BRUCE CERVANTES DO [...] [Y] 2/2 DEE: 14.9 cm Total score: 8/ US/US OB BPP w non-stress IMPRESSION: NORMAL BIOPHYSICAL PROFILE Impression dictated by: Lindsey Bright M.D. 02/02/2025 10:17 AM Dictation Location: [place] [address] Electronically authenticated by: [id number] Y Date: 02/02/2025 10:17 Dictated By: Lindsey Bright M.D. Signed By: 02/02/25 1020 DD/ 1017 TD/TT: Small Order Cutter: Procedure Note Radiology, Radiologist, - 02/02/2025 [place] [address] Ultrasound Report Signed Patient: ESTEFANIA FLOREZ JMR#: [id number] : 1995Acct:[id number] Age/Sex: 29 / FADM Date: 02/02/25 Loc: US Attending Dr: Bruce Cervantes D.O. Ordering Physician: Bruce Cervantes D.O. Date of Service: 02/02/25 Procedure(s): US OB BPP w non-stress Accession Number(s): [id number] cc: Bruce Cervantes D.O.; Physician,Non-Staff Roberto The [place] [address] Patient Name: ESTEFANIA FLOREZ MRN: [facility]:[id number] date: 1995 Sex: F Assigned Patient Location: [facility] Current Patient Location: Accession/Order Number: [id number] Exam Date: 02/02/2025 09:12 Report Date: 02/02/2025 10:17 At the request of: BRUCE CERVANTES DO Procedure: US OB BPP w non-stress BIOPHYSICAL PROFILE: CLINICAL INFORMATION: HYPERGLYCEMIA DURING O99.810 COMPARISON: 01/26/2025 There is a single live intrauterine gestation in cephalic presentation.The reported gestational age is 35 weeks 3 days. The heart ratemeasures 145 beats per minute. FINDINGS: TONE: 1 [...] [Y] 2/2 DEE: 14.9 cm Total score: 8/8 US/US OB BPP w non-stress IMPRESSION: NORMAL BIOPHYSICAL PROFILE Impression dictated by: Lindsey Bright M.D. 02/02/2025 10:17 AM Dictation Location: [place] [address] Electronically authenticated by: [id number] Y Date: 0:17 Dictated By: Lindsey Bright M.D. Signed By:02/02/25 1020 DD/ 1017 TD/TT: Small Order Cutter: us Bruce Cervantes DO [facility] Final Result * US OB GROWTH (01/26/2025 11:00 AM EDT) Anatomical Region Laterality Modality Other 01/26/2025 11:0 0 AM EDT Narrative 01/26/2025 11:03 [place] [address] Ultrasound Report Signed Patient: ESTEFANIA FLOREZ MR#: [id number] : 1995 Acct:[id number] Age/Sex: 29 / F ADM Date: 01/26/25 Loc: US Attending Dr: Bruce Cervantes D.O. Ordering Physician: Bruce Cervantes D.O. Date of Service: 01/26/25 Procedure(s): US OB growth Accession Number(s): [id number] cc: Bruce Cervantes D.O.; Physician,Non-Staff Roberto The [place] [phone] Patient Name: ESTEFANIA FLOREZ MRN: [facility]:[id number] date: 1995 Sex: F Assigned Patient Location: Current Patient Location: Accession/Order Number: [id number] Exam Date: 01/26/2025 09:08 Report Date: 01/26/2025 [...] Bright M.D. 01/26/2025 11:00 AM Dictation Location: [place] [address] Electronically authenticated by: [id number] Y Date: 01/26/2025 11:00 Dictated By: Lindsey Bright M.D. Signed By: 01/26/25 1103 DD/ 1100 TD/TT: Small Order Cutter: Procedure Note Radiology, Radiologist, MD - 01/26/2025 [place] [address] Ultrasound Report Signed Patient: ESTEFANIA FLOREZ JMR#: [id number] : 1995Acct:[id number] Age/Sex: 29 / FADM Date: 01/26/25 Loc: US Attending Dr: Bruce Cervantes D.O. Ordering Physician: Bruce Cervantes D.O. Date of Service: 01/26/25 Procedure(s): US OB growth Accession Number(s): [id number] cc: Burce Cervantes D.O.; Physician,Non-Staff Roberto [address] [address] Patient Name: ESTEFANIA FLOREZ MRN: [facility]:[id number] date: 1995 Sex: F Assigned Patient Location: Current Patient Location: Accession/Order Number: [id number] Exam Date: 01/26/2025 09:08 Report Date: 01/26/2025 [...] Bright M.D. 01/26/2025 11:00 AM Dictation Location: [place] [address] Electronically authenticated by: [id number] Y Date: 1:00 Dictated By: Lindsey Bright M.D. Signed By:01/26/25 1103 DD/ 1100 TD/TT: Small Order Cutter: us Bruce Billy DO [facility] Final [...] II, MD, PHD at 28-Dec-2024 08:33:38 AM [facility] Procedure Note Peng Cornell MD - [...] signed by PENG CORNELL II, MD, PHD [id number] 08:33:38 AM [facility] us Bruce Billy DO IMG OB [...] DO LAB BLOOD ORDERABLES Final Resul t [facility] * (ABNORMAL) GLUCOSE 1 HOUR (12/05/2024 10:53 AM EDT) GLUCOSE 1 HOUR 176(H) <130 mg/dL [facility] 12/05/2024 10:5 3 AM EDT 12/05/2024 10:54 AM EDT Narrative [facility] - 12/05/2024 11:23 AM EDT us Bruce Billy DO LAB BLOOD ORDERABLES [facility] * (ABNORMAL) ALL CBC WITH AUTO DIFF [...] - 12/05/2024 11:14 AM EDT us Bruce Billy DO [facility] Final Result [facility] * ECG 12-LEAD (12/05/2024 9:07 AM EDT) Anatomical Region Laterality Modality Other 12/05/2024 9:07 AM EDT Narrative 12/07/2024 9:00 AM EDT The [place] [id number] Electrocardiograph Report Signed Patient: ESTEFANIA FLOREZ MR#: [id number] : 1995 Acct:[id number] Age/Sex: 29 / F ADM Date: 12/05/24 Loc: CR Attending Dr: Latasha Padgett Ordering Physician: Latasha Padgett Date of Service: 12/05/24 Procedure(s): ECG 12 lead Accession Number(s): [id number] cc: [facility] Test Date: 2024-12-05 Pat Name: ESTEFANIA FLOREZ Department: Room: - Gender: Female Academic Coordinator: : 1995 Requested By: 0923 Order Number: [id number] Reading MD: ANTON THORPE Measurements Intervals [place] Rate: 68 P: 55 WI: 116 QRS: 72 QRSD: 94 T: 14 QT: 411 QTc: 439 Interpretive Statements SINUS RHYTHM WITH SHORT WI INTERVAL NONSPECIFIC T-WAVE ABNORMALITY No previous ECG available for comparison Electronically Signed On 12-07-2024 9:00:49 EDT by ANTON THORPE Dictated By: Anton Thorpe M.D. Signed By: 12/07/2489912/07/24 09 DD/ 09 TD/TT: Small Order Cutter: Procedure Note Radiology, Radiologist, MD - 12/07/2024 The [place] [id number] Electrocardiograph Report Signed Patient: ESTEFANIA FLOREZ JMR#: [id number] : 1995Acct:[id number] Age/Sex: 29 / FADM Date: 12/05/24 Loc: CR Attending Dr: Latasha Padgett Ordering Physician: Latasha Padgett Date of Service: 12/05/24 Procedure(s): ECG 12 lead Accession Number(s): [id number] cc: [facility] Test Date: 2024-12-05 Pat Name: ESTEFANIA FLOREZ Department: Room: - Gender: Female Academic Coordinator: : 1995 Requested By: 0923 Order Number: [id number] Reading MD: ANTON THORPE Measurements Intervals [place] Rate: 68 P: 55 WI: 116 QRS: 72 QRSD: 94 T: 14 QT: 411 QTc: 439 Interpretive Statements SINUS RHYTHM WITH SHORT WI INTERVAL NONSPECIFIC T-WAVE ABNORMALITY No previous ECG available for comparison Electronically Signed On 12-07-2024 9:00:49 EDT by ANTON THORPE Dictated By: Anton Thorpe M.D. Signed By:12/07/2489912/07/24899 DD/ 6 TD/TT: Small Order Cutter: Latasha KULKARNI [facility] Final Result from Last 3 Months Insurance [employer] [place]
--- OUTSIDE RECORDS SUMMARY | 2025-02-06 12:07 | XMS_ITS | Encounter Summary ---
Author Organization [facility] Address [address] [facility] [place] [address] Care Team Providers Care Optical Element Coater Name Role Phone Unavailable Primary Care Provider Unavailabl e Encounter Details Date Type Department Care Team (Late st Contact Info) Description 01/11/2024 Abstract DENISE CESAR [address] [place] [address] Aditya Cervantes, DO [address] [place] [address] Social History Tobacco Use Types Packs/Day [...] 02/13/2025 9:10 AM EDT Routine DENISE CESAR [facility] [place] [address] Aditya Cervantes, DO [address], [place] [phone] 02/28/2025 9:50 AM EDT Office Visit DENISE CESAR [facility] [place] [address] Nedra Raymond, ELECTRIC REFRIGERATOR SERVICER [address] [place] [address] documented as of this encounter Visit Diagnoses Not on filedocumented in this encounter
--- OUTSIDE RECORDS SUMMARY | 2025-02-06 12:07 | XMS_ITS | Encounter Summary ---
Author Organization [facility] Address [address] [place] [address] Care Team Providers Care Apprentice Plumber Name Role Phone Unavailable Primary Care Provider Unavailabl e Encounter Details Date Type Department Care Team (Late st Contact Info) Description 01/23/2025 Bamboo flowsheet DENISE CESAR [address] [facility] [address] Latasha Padgett PA [address] [facility] [place] [address] Social History Tobacco Use Types Packs/Day [...] AM EDT Routine NOMJean Carlos CESAR [address] [place] [address] Aditya Cervantes DO [address] [facility] [place] [address] 02/28/2025 9:50 AM EDT Office Visit DENISE CESAR [address] [place] [address] Nedra Raymond, OPHTHALMIC MEDICAL ASSISTANT [address] [facility] [place] [address] documented as of this encounter Visit Diagnoses Not on filedocumented in this encounter
--- OUTSIDE RECORDS SUMMARY | 2025-02-06 12:07 | XMS_ITS | Encounter Summary ---
Author Organization [facility] Address [address] [place] [address] Care Team Providers Care Sat Act Instructor Name Role Phone Unavailable Primary Care Provider Unavailabl e Encounter Details Date Type Department Care Team (Late st Contact Info) Description 04/20/2023 Abstract NOMJean Carlos CESAR [address] [facility] [place] [address] Trini Aquino LPN 102 [facility] Merissa [facility] Social History Tobacco Use Types [...] 02/13/2025 9:10 AM EDT Routine DENISE CESAR [address] [place] [address] [place] [address] Aditya Cervantes, DO [address] [facility] [address] [place], [place] [id number] 02/28/2025 9:50 AM EDT Office Visit DENISE CESAR [address] [place] [address] [place] [address] Nedra Raymond, ASSISTANT SALES CENTER MANAGER [address] [facility] [place] [address] documented as of this encounter Visit Diagnoses Not on filedocumented in this encounter
--- OUTSIDE RECORDS SUMMARY | 2025-02-06 12:07 | XMS_ITS | Encounter Summary ---
Author Organization [facility] Address [address] [place] [address] Care Team Providers Care Debone Processing Supervisor Name Role Phone Unavailable Primary Care Provider Unavailabl e Encounter Details Date Type Department Care Team (Late st Contact Info) Description 08/19/2023 Clinisync Result Encounter [facility] External Department Unsolicited Bruce Cervantes DO [address] [place], [place] [phone] Social History Tobacco Use Types Packs/Day Years [...] 9:10 AM EDT Routine NOMJean Carlos CESAR [address] [place], [place] [address] [address] Bruce Cervantes DO [address] [place], [place] [address] 02/28/2025 9:50 AM EDT Office Visit NOMJean Carlos CORONAGYRocio [address] [place] [address] Nedra Raymond, DUPLICATING MACHINE SERVICER [address] [place] [address] documented as of this encounter Procedures Procedure Name Priority Date/Time Associated Diagnosis Comments US OB ANATOMY 08/19/2023 11:33 AM EDT documented in this encounter Results * US OB ANATOMY (08/19/2023 11:33 AM EDT) Anatomical Region Laterality Modality Other 08/19/2023 11:3 3 AM EDT Narrative 08/19/2023 11:36 [place] [address] Ultrasound Report Signed Patient: ESTEFANIA CEDEÑO MR#: [id number] : 1995 Acct:[id number] Age/Sex: 28 / F ADM Date: 08/19/23 Loc: [facility] Attending Dr: Bruce Cervantes D.O. Ordering Physician: Bruce Cervantes D.O. Date of Service: 08/19/23 Procedure(s): US OB anatomy Accession Number(s): [id number] cc: Bruce Cervantes D.O.; Physician,Non-Staff M.D. [place] [address] Patient Name: ESTEFANIA CEDEÑO MRN: [id number] date: 1995 Sex: F Assigned Patient [facility]: [facility] Current Patient Location: [facility] Accession/Order Number: [id number] Exam Date: 08/19/2023 10:08 Report Date: 08/19/2023 [...] Signed By: 08/19/23 1136 DD/ 1133 TD/TT: Photographer Lithographic: Procedure Note Radiology, Radiologist, MD - 08/19/2023 [place] [address] Ultrasound Report Signed Patient: TRINITY CEDEÑO#: [id number] : 1995Acct:[id number] Age/Sex: Date: 08/19/23 Loc: [facility] Attending Dr: Bruce Cervantes D.O. Ordering Physician: Bruce Cervantes D.O. Date of Service: 08/19/23 Procedure(s): US OB anatomy Accession Number(s): [id number] cc: Bruce Cervantes D.O.; Physician,Non-Staff Roberto The [address] [address] Patient Name: ESTEFANIA CEDEÑO MRN: [id number] date: 1995 Sex: F Assigned Patient Location: [facility] Current Patient Location: [facility] Accession/Order Number: [id number] Exam Date: 08/19/2023 10:08 Report Date: 08/19/2023 [...] M.D. Signed By:08/19/23 1136 DD/ 1133 TD/TT: Photographer Lithographic: Bruce Cervantes DO [facility] Final Result documented in this encounter Visit Diagnoses Not on filedocumented in this encounter
--- OUTSIDE RECORDS SUMMARY | 2025-02-06 12:07 | XMS_ITS | Encounter Summary ---
Author Organization [facility] Address [address] [place] [address] Care Team Providers Care Customer Advisor Name Role Phone Unavailable Primary Care Provider Unavailabl e Encounter Details Date Type Department Care Team (Late st Contact Info) Description 09/19/2024 Abstract DENISE CESAR [facility] [place] [address] Aditya Cervantes, DO [address] [place] [address] Social History Tobacco Use Types Packs/Day [...] 02/13/2025 9:10 AM EDT Routine DENISE CESAR [facility] [place] [address] Aditya Cervantes, DO [address] [place] [address] 02/28/2025 9:50 AM EDT Office Visit DENISE CESAR [facility] [place] [address] Nedra Raymond, PARTY PLAN SELLING DISTRIBUTOR [address] [place] [address] documented as of this encounter Visit Diagnoses Not on filedocumented in this encounter
--- OUTSIDE RECORDS SUMMARY | 2025-02-06 12:07 | XMS_ITS | Encounter Summary ---
Author Organization [facility] Address [address] [place] [address] Care Team Providers Care Melt Helper Name Role Phone Unavailable Primary Care Provider Unavailabl e Encounter Details Date Type Department Care Team (Late st Contact Info) Description 06/11/2023 Clinisync Result Encounter [facility] External Department Unsolicited Bruce Cervantes DO [address] [place], [place] [phone] Social History Tobacco Use Types Packs/Day Years [...] 9:10 AM EDT Routine NOMJean Carlos CESAR [address] [place], [place] [address] [address] Bruce Cervantes DO [address] [place], [place] [phone] 02/28/2025 9:50 AM EDT Office Visit NOMJean Carlos CESAR [address] [place] [address] Nedra Raymond, ELECTRICAL CONTROLS ASSEMBLER [address] [place] [address] documented as of this encounter Procedures Procedure Name Priority Date/Time Associated Diagnosis Comments OB TRANSVAGINAL 06/11/2023 11 :38 AM EST documented in this encounter Results * US OB TRANSVAGINAL (06/11/2023 11:38 AM EST) Anatomical Region Laterality Modality Other 06/11/2023 11:3 8 AM EST Narrative 06/11/2023 11:41 [place] [address] Ultrasound Report Signed Patient: ESTEFANIA CEDEÑO MR#: [id number] : 1995 Acct:[id number] Age/Sex: 28 / F ADM Date: 06/11/23 Loc: US Attending Dr: Bruce Cervantes D.O. Ordering Physician: Bruce Cervantes D.O. Date of Service: 06/11/23 Procedure(s): US OB transvaginal Accession Number(s): [id number] cc: Bruce Cervantes D.O.; Physician,Non-Staff M.D. The [place] [address] Patient Name: ESTEFANIA CEDEÑO MRN: [id number] date: 1995 Sex: F Assigned Patient Location: US Current Patient Location: US Accession/Order Number: [id number] Exam Date: 06/11/2023 10:42 Report Date: 06/11/2023 [...] Signed By: 06/11/23 1141 DD/ 1138 TD/TT: Aviation Warfare Systems Operator: Procedure Note Radiology, Radiologist, MD - 06/11/2023 [place] [address] Ultrasound Report Signed Patient: TRINITY CEDEÑO#: [id number] : 1995Acct:[id number] Age/Sex: 28 / FADM Date: 06/11/23 Loc: US Attending Dr: Bruce Cervantes D.O. Ordering Physician: Bruce Cervantes D.O. Date of Service: 06/11/23 Procedure(s): US OB transvaginal Accession Number(s): [id number] cc: Bruce Cervantes D.O.; Physician,Non-Staff Roberto The [place] [address] Patient Name: ESTEFANIA CEDEÑO MRN: [id number] date: 1995 Sex: F Assigned Patient Location: US Current Patient Location: US Accession/Order Number: [id number] Exam Date: 06/11/2023 10:42 Report Date: 06/11/2023 [...] M.D. Signed By:06/11/23 1141 DD/ 1138 TD/TT: Aviation Warfare Systems Operator: us Bruce Billy DO [facility] Final Result documented in this encounter Visit Diagnoses Not on filedocumented in this encounter
--- OUTSIDE RECORDS SUMMARY | 2025-02-06 12:07 | XMS_ITS | Encounter Summary ---
Author Organization [facility] Address [address] [place] [address] Care Team Providers Care Government Operations Consultant Name Role Phone Unavailable Primary Care Provider Unavailabl e Encounter Details Date Type Department Care Team (Late st Contact Info) Description 01/09/2025 Abstract DENISE CESAR [facility] [place] [address] Aditya Cervantes, DO [address] [place] [address] Social History Tobacco Use Types Packs/Day [...] 02/13/2025 9:10 AM EDT Routine DENISE CESAR [facility] [place] [address] Aditya Cervantes, DO [address] [place] [address] 02/28/2025 9:50 AM EDT Office Visit DENISE CESAR [facility] [place] [address] Nedra Raymond, SECURITY ARCHITECT [address] [place] [address] documented as of this encounter Visit Diagnoses Not on filedocumented in this encounter
--- OUTSIDE RECORDS SUMMARY | 2025-02-06 12:07 | XMS_ITS | Encounter Summary ---
Author Organization [facility] Address [address] [place] [address] Care Team Providers Care Keg Filler Name Role Phone Unavailable Primary Care Provider Unavailabl e Encounter Details Date Type Department Care Team (Late st Contact Info) Description 08/04/2024 Abstract DENISE CESAR [place] [address] Aditya Cervantes, DO [address] [place] [address] Social History Tobacco Use Types Packs/Day [...] 02/13/2025 9:10 AM EDT Routine DENISE CESAR [place] [address] Aditya Cervantes, DO [address] [place] [address] 02/28/2025 9:50 AM EDT Office Visit DENISE CESAR [place] [address] Nedra Raymond, MARKET GARDEN WORKER [address] [place] [address] documented as of this encounter Visit Diagnoses Not on filedocumented in this encounter
--- OUTSIDE RECORDS SUMMARY | 2025-02-06 12:07 | XMS_ITS | Encounter Summary ---
Author Organization [facility] Address [address] [place] [address] Care Team Providers Care Mural Painter Name Role Phone Unavailable Primary Care Provider Unavailabl e Encounter Details Date Type Department Care Team (Late st Contact Info) Description 08/19/2023 Clinisync Result Encounter [facility]OMS External Department Unsolicited Bruce Cervantes DO [address] [place], [place] [address] Social History Tobacco Use Types Packs/Day Years [...] 9:10 AM EDT Routine NOMJean Carlos CESAR [address] [place], [place] [address] [address] Bruce Cervantes DO [address] [place], [place] [address] 02/28/2025 9:50 AM EDT Office Visit NOMJean Carlos CORONAGYRocio [address] [facility] [place] [address] Nedra Raymond, HEALTH PROMOTER [address] [place] [address] documented as of this encounter Procedures Procedure Name Priority Date/Time Associated Diagnosis Comments US OB CERVICAL LENGTH 08/19/2023 11:33 AM EDT documented in this encounter Results * US OB CERVICAL LENGTH (08/19/2023 11:33 AM EDT) Anatomical Region Laterality Modality Other 08/19/2023 11:3 3 AM EDT Narrative 08/19/2023 11:35 [place] [address] Ultrasound Report Signed Patient: ESTEFANIA CEDEÑO MR#: [id number] : 1995 Acct:[id number] Age/Sex: 28 / F ADM Date: 08/19/23 Loc: [facility]OM[facility] Attending Dr: Bruce Cervantes D.O. Ordering Physician: Bruce Cervantes D.O. Date of Service: 08/19/23 Procedure(s): US OB cervical length Accession Number(s): [id number] cc: Bruce Cervantes D.O.; Physician,Non-Staff M.D. The [place] [address] Patient Name: ESTEFANIA CEDEÑO MRN: [id number] date: 1995 Sex: F Assigned Patient Location: [facility] Current Patient Location: [facility] Accession/Order Number: [id number] Exam Date: 08/19/2023 10:08 Report Date: 08/19/2023 [...] Signed By: 08/19/23 1135 DD/ 1133 TD/TT: Art Librarian: Procedure Note Radiology, Radiologist, MD - 08/19/2023 [place] [address] Ultrasound Report Signed Patient: TRINITY CEDEÑO#: [id number] : 1995Acct:[id number] Age/Sex: M Date: 08/19/23 Loc: [facility] Attending Dr: Bruce Cervantes D.O. Ordering Physician: Bruce Cervantes D.O. Date of Service: 08/19/23 Procedure(s): US OB cervical length Accession Number(s): [id number] cc: Bruce Cervantes D.O.; Physician,Non-Staff Roberto The [place] [address] Patient Name: ESTEFANIA CEDEÑO MRN: [facility]:[id number] date: 1995 Sex: F Assigned Patient Location: [facility] Current Patient Location: [facility] Accession/Order Number: [id number] Exam Date: 08/19/2023 10:08 Report Date: 08/19/2023 [...] M.D. Signed By:08/19/23 1135 DD/ 1133 TD/TT: Art Librarian: Bruce Cervantes DO [facility] Final Result documented in this encounter Visit Diagnoses Not on filedocumented in this encounter
--- OUTSIDE RECORDS SUMMARY | 2025-02-06 12:07 | XMS_ITS | Encounter Summary ---
Author Organization [facility] Address [address] [place] [address] Care Team Providers Care Cotton Ball Bagger Name Role Phone Unavailable Primary Care Provider Unavailabl e Encounter Details Date Type Department Care Team (Late st Contact Info) Description 01/09/2025 Abstract DENISE CESAR [facility] [place] [address] Aditya Cervantes, DO [address] [place] [address] Social History Tobacco Use Types Packs/Day [...] 02/13/2025 9:10 AM EDT Routine DENISE CESAR [facility] [place] [address] Aditya Cervantes, DO [address] [place] [address] 02/28/2025 9:50 AM EDT Office Visit DENISE CESAR [facility] [place] [address] Nedra Raymond, SAFETY AIDE [address] [place] [address] documented as of this encounter Visit Diagnoses Not on filedocumented in this encounter
--- OUTSIDE RECORDS SUMMARY | 2025-02-06 12:07 | XMS_ITS | Encounter Summary ---
Author Organization [facility] Address [address] [place] [address] Care Team Providers Care Soakers Supervisor Name Role Phone Unavailable Primary Care Provider Unavailabl e Encounter Details Date Type Department Care Team (Late st Contact Info) Description 09/16/2023 Clinisync Result Encounter [facility]S External Department Unsolicited Bruce Cervantes DO [address] [place], [place] [address] Social History Tobacco Use Types Packs/Day Years [...] 9:10 AM EDT Routine NOMJean Carlos CESAR [address] [place], [place] [address] [address] Bruce Cervantes DO [address] [place], [place] [address] 02/28/2025 9:50 AM EDT Office Visit NOMJean Carlos CESAR [address] [place] [address] Nedra Raymond, FLOOR TILING PROFESSIONAL [address] [place] [address] documented as of this encounter Procedures Procedure Name Priority Date/Time Associated Diagnosis Comments OB FOLLOW UP 09/16/2023 11:19 AM EDT documented in this encounter Results * US OB FOLLOW UP (09/16/2023 11:19 AM EDT) Anatomical Region Laterality Modality Radiographic Mari ging 09/16/2023 11:1 9 AM EDT Narrative 09/16/2023 11:22 [place] [address] Ultrasound Report Signed Patient: ESTEFANIA CEDEÑO MR#: [id number] : 1995 Acct:[id number] Age/Sex: 28 / F ADM Date: 09/16/23 Loc: [facility] Attending Dr: Bruce Cervantes D.O. Ordering Physician: Bruce Cervantes D.O. Date of Service: 09/16/23 Procedure(s): US OB follow up Accession Number(s): [id number] cc: Bruce Cervantes D.O.; Physician,Non-Staff M.D. The [place] [address] Patient Name: ESTEFANIA CEDEÑO MRN: [id number] date: 1995 Sex: F Assigned Patient Location: [facility] Current Patient Location: [facility] Accession/Order Number: [id number] Exam Date: 09/16/2023 09:58 Report Date: 09/16/2023 11:19 At the request of: BRUCE CERAVNTES Procedure: US OB follow up EXAMINATION: US [...] By: Ed Krueger M.D. Signed By: 09/16/23 112 DD/ 1119 TD/TT: Flat Polisher: Procedure Note Radiology, Radiologist, MD - 09/16/2023 [place] [address] Ultrasound Report Signed Patient: TRINITY CEDEÑO#: [id number] : 1995Acct:[id number] Age/Sex: 28 / FADM Date: 09/16/23 Loc: [facility] Attending Dr: Bruce Cervantes D.O. Ordering Physician: Bruce Cervantes D.O. Date of Service: 09/16/23 Procedure(s): US OB follow up Accession Number(s): [id number] cc: Bruce Cervantes D.O.; Physician,Non-Staff Roberto The [place] [address] Patient Name: ESTEFANIA CEDEÑO MRN: [id number] date: 1995 Sex: F Assigned Patient Location: [facility] Current Patient Location: [facility] Accession/Order Number: [id number] Exam Date: 09/16/2023 09:58 Report Date: 09/16/2023 [...] M.D. Signed By:09/16/23 1122 DD/ 1119 TD/TT: Flat Polisher: us Bruce Cervantes DO IMG XR PROCEDURES Final Result documented in this encounter Visit Diagnoses Not on filedocumented in this encounter
--- OUTSIDE RECORDS SUMMARY | 2025-02-06 12:07 | XMS_ITS | Encounter Summary ---
Author Organization [facility] Address [address] [place] [address] Care Team Providers Care Cloth Washer Back Tender Name Role Phone Unavailable Primary Care Provider Unavailabl e Encounter Details Date Type Department Care Team (Late st Contact Info) Description 01/26/2025 Clinisync Result Encounter [facility]OMS External Department Unsolicited Bruce Cervantes DO [address] [place], [place] [address] Social History Tobacco Use Types Packs/Day Years [...] 02/13/2025 9:10 AM EDT Routine DENISE CESAR [facility] [place] [address] Bruce Cervantes DO [address] [place], [place] [address] 02/28/2025 9:50 AM EDT Office Visit DENISE CESAR [facility] [place] [address] Nedra Raymond, SIZE MARKER [address] [place] [address] documented as of this encounter Procedures Procedure Name Priority Date/Time Associated Diagnosis Comments US OB GROWTH 01/26/2025 11:00 AM EDT documented in this encounter Results * US OB GROWTH (01/26/2025 11:00 AM EDT) Anatomical Region Laterality Modality Other 01/26/2025 11:0 0 AM EDT Narrative 01/26/2025 11:03 [place] [address] Ultrasound Report Signed Patient: ESTEFANIA CEDEÑO MR#: [id number] : 1995 Acct:[id number] Age/Sex: 29 / F ADM Date: 01/26/25 Loc: US Attending Dr: Bruce Cervantes D.O. Ordering Physician: Bruce Cervantes D.O. Date of Service: 01/26/25 Procedure(s): US OB growth Accession Number(s): [id number] cc: Bruce Cervantes D.O.; Physician,Non-Staff M.DAsiya [place] [address] Patient Name: ESTEFANIA CEDEÑO MRN: [id number] date: 1995 Sex: F Assigned Patient Location: Current Patient Location: Accession/Order Number: [id number] Exam Date: 01/26/2025 09:08 Report Date: 01/26/2025 [...] Bright M.D. 01/26/2025 11:00 AM Dictation Location: [place] [address] Electronically authenticated by: [id number] Y Date: 01/26/2025 11:00 Dictated By: Lindsey Bright M.D. Signed By: 01/26/25 1103 DD/ 1100 TD/TT: Turfgrass Technician: Procedure Note Radiology, Radiologist, MD - 01/26/2025 [place] [address] Ultrasound Report Signed Patient: ESTEFANIA CEDEÑO JMR#: [id number] : 1995Acct:[id number] Age/Sex: 29 FADM Date: 01/26/25 Loc: US Attending Dr: Bruce Cervantes D.O. Ordering Physician: Bruce Cervantes D.O. Date of Service: 01/26/25 Procedure(s): US OB growth Accession Number(s): [id number] cc: Bruce Cervantes D.O.; Physician,Non-Staff Roberto The [place] [id number] Patient Name: ESTEFANIA CEDEÑO MRN: [id number] date: 1995 Sex: F Assigned Patient Location: Current Patient Location: Accession/Order Number: [id number] Exam Date: 01/26/2025 09:08 Report Date: 01/26/2025 [...] Bright M.D. 01/26/2025 11:00 AM Dictation Location: [place] [address] Electronically authenticated by: [id number] Y Date: 1:00 Dictated By: Lindsey Bright M.D. Signed By:01/26/25 1103 DD/ 1100 TD/TT: Turfgrass Technician: us Bruce Cervantes DO [facility] Final Result documented in this encounter Visit Diagnoses Not on filedocumented in this encounter
--- OUTSIDE RECORDS SUMMARY | 2025-02-06 12:07 | XMS_ITS | Encounter Summary ---
Author Organization [facility] Address [address] [place] [address] Care Team Providers Care Auto Dealership Porter Name Role Phone Unavailable Primary Care Provider Unavailabl e Encounter Details Date Type Department Care Team (Late st Contact Info) Description 01/26/2025 Clinisync Result Encounter [facility]S External Department Unsolicited Bruce Cervantes DO [address] [place], [place] [phone] Social History Tobacco Use Types Packs/Day Years [...] 02/13/2025 9:10 AM EDT Routine DENISE CESAR [facility] [place] [address] Bruce Cervantes DO [address] [place], [place] [address] 02/28/2025 9:50 AM EDT Office Visit DENISE CESAR [facility] [place] [address] Nedra Raymond, PHARMACIST APPRENTICE [address] [place] [address] documented as of this encounter Procedures Procedure Name Priority Date/Time Associated Diagnosis Comments US OB BPP W NON-STRESS 01/26/2025 11:00 AM EDT documented in this encounter Results * US OB BPP W NON-STRESS (01/26/2025 11:00 AM EDT) Anatomical Region Laterality Modality Other 01/26/2025 11:0 0 AM EDT Narrative 01/26/2025 11:03 [place] [address] Ultrasound Report Signed Patient: ESTEFANIA CEDEÑO MR#: [id number] : 1995 Acct:[id number] Age/Sex: 29 / F ADM Date: 01/26/25 Loc: US Attending Dr: Bruce Cervantes D.O. Ordering Physician: Bruce Cervantes D.O. Date of Service: 01/26/25 Procedure(s): US OB BPP w non-stress Accession Number(s): [id number] cc: Bruce Cervantes D.O.; Physician,Non-Staff MSirena [place] [address] Patient Name: ESTEFANIA CEDEÑO MRN: [id number] date: 1995 Sex: F Assigned Patient Location: [facility] Current Patient Location: Accession/Order Number: [id number] Exam Date: 01/26/2025 09:08 Report Date: 01/26/2025 [...] NORMAL BIOPHYSICAL PROFILE. Impression dictated by: Lindsey Brgiht M.D. 01/26/2025 11:00 AM Dictation Location: [place] [address] Electronically authenticated by: [id number] Y Date: 01/26/2025 11:00 Dictated By: Lindsey Bright M.D. Signed By: 01/26/25 1103 DD/ 1100 TD/TT: Consumer Electronic Retail Specialist: Procedure Note Radiology, Radiologist, - 01/26/2025 [place] [address] Ultrasound Report Signed Patient: ESTEFANIA CEDEÑO JMR#: [id number] : 1995Acct:[id number] Age/Sex: 29 FADM Date: 01/26/25 Loc: US Attending Dr: Bruce Cervantes D.O. Ordering Physician: Bruce Cervantes D.O. Date of Service: 01/26/25 Procedure(s): US OB BPP w non-stress Accession Number(s): [id number] cc: Billy,Bruce D.O.; Physician,Non-Staff Roberto [place] [address] Patient Name: ESTEFANIA CEDEÑO MRN: [facility]:[id number] date: 1995 Sex: F Assigned Patient Location: [facility] Current Patient Location: Accession/Order Number: [id number] Exam Date: 01/26/2025 09:08 Report Date: 01/26/2025 [...] Bright M.D. 01/26/2025 11:00 AM Dictation Location: [place] [address] Electronically authenticated by: [id number] Y Date: 1:00 Dictated By: Lindsey Bright M.D. Signed By:01/26/25 1103 DD/ 1100 TD/TT: Consumer Electronic Retail Specialist: us Bruce Billy DO [facility] Final Result documented in this encounter Visit Diagnoses Not on filedocumented in this encounter
--- OUTSIDE RECORDS SUMMARY | 2025-02-06 12:07 | XMS_ITS | Encounter Summary ---
Author Organization [facility] Address [address] [place] [address] Care Team Providers Care Flight Attendant Name Role Phone Unavailable Primary Care Provider Unavailabl e Encounter Details Date Type Department Care Team (Late st Contact Info) Description 12/13/2024 Results Follow-Up DENISE CESAR [address] [facility] [place] [address] Hedy Singh LPN [address] [address] GLUCOSE TOLERANCE 3 HOUR Social [...] AM EDT Routine NOMJean Carlos CESAR [address] [facility] [address] Aditya Cervantes, [address] [facility] [place] [address] 02/28/2025 9:50 AM EDT Office Visit NOMJean Carlos CESAR [address] [facility] [address] Nedra Raymond, TONE [address] [facility] [place] [address] documented as of this encounter Visit Diagnoses Not on filedocumented in this encounter
--- OUTSIDE RECORDS SUMMARY | 2025-02-06 12:07 | XMS_ITS | Encounter Summary ---
Author Organization [facility] Address [address] [place] [address] Care Team Providers Care Test Pilot Name Role Phone Unavailable Primary Care Provider Unavailabl e Encounter Details Date Type Department Care Team (Late st Contact Info) Description 10/28/2023 Clinisync Result Encounter NOMS External Department Unsolicited Bruce Cervantes DO [address] [place], [place] [phone] Social History Tobacco Use Types Packs/Day Years [...] 9:10 AM EDT Routine NOMJean Carlos CESAR [address] [place], [place] [address] [address] Bruce Cervantes DO [address] [place], [place] [phone] 02/28/2025 9:50 AM EDT Office Visit NOMS Gia CORONAGYRocio [address] [place] [address] Nedra Raymond, POSTDOCTORAL FELLOW [address] [place] [address] documented as of this encounter Procedures Procedure Name Priority Date/Time Associated Diagnosis Comments US OB GROWTH 10/28/2023 9:56 AM EDT documented in this encounter Results * US OB GROWTH (10/28/2023 9:56 AM EDT) Anatomical Region Laterality Modality Other 10/28/2023 9:56 AM EDT Narrative 10/28/2023 9:59 [place] [address] Ultrasound Report Signed Patient: ESTEFANIA CEDEÑO MR#: [id number] : 1995 Acct:[id number] Age/Sex: 28 / F ADM Date: 10/28/23 Loc: US Attending Dr: Bruce Cervantes D.O. Ordering Physician: Bruce Cervantes D.O. Date of Service: 10/28/23 Procedure(s): US OB growth Accession Number(s): [id number] cc: Bruce Cervantes D.O.; Physician,Non-Staff M.D. [facility] [place] [address] Patient Name: ESTEFANIA CEDEÑO MRN: [id number] date: 1995 Sex: F Assigned Patient Location: US Current Patient Location: US Accession/Order Number: [id number] Exam Date: 10/28/2023 08:55 Report Date: 10/28/2023 [...] Stone M.D. Signed By: 10/28/2359 DD/ TD/TT: Cray Fishing Hand: Procedure Note Radiology, Radiologist, MD - 10/28/2023 [place] [address] Ultrasound Report Signed Patient: TRINITY CEDEÑO#: [id number] : 1995Acct:[id number] Age/Sex: 28 FADM Date: 10/28/23 Loc: US Attending Dr: Bruce Cervantes D.O. Ordering Physician: Bruce Cervantes D.O. Date of Service: 10/28/23 Procedure(s): US OB growth Accession Number(s): [id number] cc: Bruce Cervantes D.O.; Physician,Non-Staff Roberto [facility] [place] [address] Patient Name: ESTEFANIA CEDEÑO MRN: [facility]:[id number] date: 1995 Sex: F Assigned Patient Location: US Current Patient Location: US Accession/Order Number: [id number] Exam Date: 10/28/2023 08:55 Report Date: 10/28/2023 [...] Kurt Stone M.D. Signed By:10/28/2359 DD/ TD/TT: Cray Fishing Hand: us Bruce Cervantes DO [facility] Final Result documented in this encounter Visit Diagnoses Not on filedocumented in this encounter
--- OUTSIDE RECORDS SUMMARY | 2025-02-06 12:07 | XMS_ITS | Encounter Summary ---
Author Organization [facility] Address [address] [place] [address] Care Team Providers Care Excelsior Machine Operator Name Role Phone Unavailable Primary Care Provider Unavailabl e Encounter Details Date Type Department Care Team (Late st Contact Info) Description 06/23/2023 Clinisync Result Encounter NOMS External Department Unsolicited Bruce Cervantes DO [address] [place], [place] [phone] Social History Tobacco Use Types Packs/Day Years [...] 9:10 AM EDT Routine NOMJean Carlos CESAR [address] [place], [place] [address] [address] Bruce Cervantes DO [address] [place], [place] [phone] 02/28/2025 9:50 AM EDT Office Visit NOMJean Carlos CESAR [address] [place] [address] Nedra Raymond, FINANCE CONSULTANT [address] [place] [phone] documented as of this encounter Procedures Procedure Name Priority Date/Time Associated Diagnosis Comments OB TRANSVAGINAL 06/23/2023 10 :07 AM EST documented in this encounter Results * US OB TRANSVAGINAL (06/23/2023 10:07 AM EST) Anatomical Region Laterality Modality Other 06/23/2023 10:0 7 AM EST Narrative 06/23/2023 10:09 [place] [address] Ultrasound Report Signed Patient: ESTEFANIA CEDEÑO MR#: [id number] : 1995 Acct:[id number] Age/Sex: 28 / F ADM Date: 06/23/23 Loc: NOMS Attending Dr: Bruce Cervantes D.O. Ordering Physician: Bruce Cervantes D.O. Date of Service: 06/23/23 Procedure(s): US OB transvaginal Accession Number(s): [id number] cc: Bruce Cervantes D.O.; Physician,Non-Staff M.D. [facility] [place] [address] Patient Name: ESTEFANIA CEDEÑO MRN: [id number] date: 1995 Sex: F Assigned Patient Location: [facility] Current Patient Location: [facility] Accession/Order Number: [id number] Exam Date: 06/23/2023 09:30 Report Date: 06/23/2023 [...] Signed By: 06/23/23 1009 DD/ 1007 TD/TT: Construction Ironworker Helper: Procedure Note Radiology, Radiologist, - 08/04/2023 [place] [address] Ultrasound Report Signed Patient: TRINITY CEDEÑO#: [id number] : 1995Acct:[id number] Age/Sex: 28 / FADM Date: 06/23/23 Loc: NOMS Attending Dr: Bruce Cervantes D.O. Ordering Physician: Bruce Cervantes D.O. Date of Service: 06/23/23 Procedure(s): US OB transvaginal Accession Number(s): [id number] cc: Bruce Cervantes D.O.; Physician,Non-Staff Roberto [facility] [place] [address] Patient Name: ESTEFANIA CEDEÑO MRN: [id number] date: 1995 Sex: F Assigned Patient Location: [facility] Current Patient Location: [facility] Accession/Order Number: [id number] Exam Date: 06/23/2023 09:30 Report Date: 06/23/2023 [...] M.D. Signed By:06/23/23 1009 DD/ 1007 TD/TT: Construction Ironworker Helper: us Bruce Cervantes DO [facility] Final Result documented in this encounter Visit Diagnoses Not on filedocumented in this encounter
--- OUTSIDE RECORDS SUMMARY | 2025-02-06 12:07 | XMS_ITS | Encounter Summary ---
Author Organization [facility] Address [address] [place] [address] Care Team Providers Care Enrober Name Role Phone Unavailable Primary Care Provider Unavailabl e Encounter Details Date Type Department Care Team (Late st Contact Info) Description 12/14/2023 Abstract NOMJean Carlos CESAR [address] [facility] [address] Trini Aquino LPN [address] [facility] [place] [facility] Social History Tobacco Use Types Packs/Day [...] 02/13/2025 9:10 AM EDT Routine DENISE CESAR [address] [place] [address] [place] [address] Aditya Cervantes, DO [address] [facility] [address] [place], [place] [phone] 02/28/2025 9:50 AM EDT Office Visit DENISE CESAR [address] [place] [address] [place] [address] Nedra Raymond, VICE CHANCELLOR [address] [facility] [place] [phone] documented as of this encounter Visit Diagnoses Not on filedocumented in this encounter
--- OUTSIDE RECORDS SUMMARY | 2025-02-06 12:07 | XMS_ITS | Encounter Summary ---
Author Organization [facility] Address [address] [place] [address] Care Team Providers Care Open Hearth Stockyard Supervisor Name Role Phone Unavailable Primary Care Provider Unavailabl e Encounter Details Date Type Department Care Team (Late st Contact Info) Description 01/03/2024 Abstract DENISE CESAR [facility] [place] [address] Aditya Cervantes, DO [address] [place] [address] Social History Tobacco Use [...] DENISE CESAR [facility] [place] [address] Aditya Cervantes, DO [address] [place], [place] [phone] 02/28/2025 9:50 AM EDT Office Visit DENISE CESAR [facility] [place] [address] Nedra Raymond, ADMINISTRATOR OF HOME HEALTH [address] [place] [phone] documented as of this encounter Visit Diagnoses Not on filedocumented in this encounter
--- OUTSIDE RECORDS SUMMARY | 2025-02-06 12:07 | XMS_ITS | Encounter Summary ---
Author Organization [facility] Address [address] [place] [address] Care Team Providers Care Hammer Adjuster Name Role Phone Unavailable Primary Care Provider Unavailabl e Encounter Details Date Type Department Care Team (Late st Contact Info) Description 02/02/2025 Clinisync Result Encounter NOMS External Department Unsolicited Bruce Cervantes DO [address] [place], [place] [phone] Social History Tobacco Use Types Packs/Day Years [...] 02/13/2025 9:10 AM EDT Routine DENISE CESAR [facility] [place] [address] Bruce Cervantes DO [address] [place], [place] [phone] 02/28/2025 9:50 AM EDT Office Visit DENISE CESAR [facility] [place] [address] Nedra Raymond, TOWING PILOT [address] [place] [address] documented as of this encounter Procedures Procedure Name Priority Date/Time Associated Diagnosis Comments US OB BPP W NON-STRESS 02/02/2025 10:17 AM EDT documented in this encounter Results * US OB BPP W NON-STRESS (02/02/2025 10:17 AM EDT) Anatomical Region Laterality Modality Other 02/02/2025 10:1 7 AM EDT Narrative 02/02/2025 10:20 [place] [address] Ultrasound Report Signed Patient: ESTEFANIA CEDEÑO MR#: [id number] : 1995 Acct:[id number] Age/Sex: 29 / F ADM Date: 02/02/25 Loc: US Attending Dr: Bruce Cervantes D.O. Ordering Physician: Bruce Cervantes D.O. Date of Service: 02/02/25 Procedure(s): US OB BPP w non-stress Accession Number(s): [id number] cc: Bruce Cervantes D.O.; Physician,Non-Staff MSirena [place] [address] Patient Name: ESTEFANIA CEDEÑO MRN: [id number] date: 1995 Sex: F Assigned Patient Location: [facility] Current Patient Location: Accession/Order Number: [id number] Exam Date: 02/02/2025 09:12 Report Date: 02/02/2025 [...] Bright M.D. 02/02/2025 10:17 AM Dictation Location: [place] [address] Electronically authenticated by: [id number] Y Date: 02/02/2025 10:17 Dictated By: Lindsey Bright M.D. Signed By: 02/02/25 1020 DD/ 1017 TD/TT: Carpet Sewer: Procedure Note Radiology, Radiologist, MD - 02/02/2025 [place] [address] Ultrasound Report Signed Patient: ESTEFANIA CEDEÑO R#: [id number] : 1995Acct:[id number] Age/Sex: 29 / FADM Date: 02/02/25 Loc: US Attending Dr: Bruce Cervantes D.O. Ordering Physician: Bruce Cervantes D.O. Date of Service: 02/02/25 Procedure(s): US OB BPP w non-stress Accession Number(s): [id number] cc: Bruce Cervantes D.O.; Physician,Non-Staff Roberto [facility] [place] [address] Patient Name: ESTEFANIA CEDEÑO MRN: [id number] date: 1995 Sex: F Assigned Patient Location: [facility] Current Patient Location: Accession/Order Number: [id number] Exam Date: 02/02/2025 09:12 Report Date: 02/02/2025 [...] Bright M.D. 02/02/2025 10:17 AM Dictation Location: [place] Electronically authenticated by: [id number] Y Date: 0:17 Dictated By: Lindsey Bright M.D. Signed By:02/02/25 1020 DD/ 1017 TD/TT: Carpet Sewer: us Bruce Buenrostroo DO [facility] Final Result documented in this encounter Visit Diagnoses Not on filedocumented in this encounter
--- OUTSIDE RECORDS SUMMARY | 2025-02-06 12:07 | XMS_ITS | Encounter Summary ---
Author Organization [facility] Address [address] [place] [address] Care Team Providers Care Manager Residential Name Role Phone Unavailable Primary Care Provider Unavailabl e Encounter Details Date Type Department Care Team (Late st Contact Info) Description 10/04/2023 Clinisync Result Encounter NOMS External Department Unsolicited Bruce Cervantes DO [address] [place], [place] [phone] Social History Tobacco Use Types Packs/Day Years [...] 9:10 AM EDT Routine NOMJean Carlos CESAR [address] [place], [place] [address] [address] Bruce Cervantes DO [address] [place], [place] [address] 02/28/2025 9:50 AM EDT Office Visit NOMJean Carlos CESAR [address] [place] [address] Nedra Raymond, SYSTEM TRAINER [address] [place] [address] documented as of this encounter Procedures Procedure Name Priority Date/Time Associated Diagnosis Comments US RIGHT UPPER QUADRANT 10/04/2023 2:02 PM EDT [facility] LIPASE Routine 10/04/2023 1:40 PM EDT [facility] CMP (CMP) (FOR REMOTE [facility] USE) Routine 10/04/2023 1:40 PM EDT ALL AMYLASE Routine 10/04/2023 1:40 PM EDT OVA + PARASITE EXAM Routine 10/04/2023 1 :00 PM EDT documented in this encounter Results * US RIGHT UPPER QUADRANT (10/04/2023 2:02 PM EDT) Anatomical Region Laterality Modality Other 10/04/2023 2:02 PM EDT Narrative 10/04/2023 2:05 [place] [address] Ultrasound Report Signed Patient: ESTEFANIA CEDEÑO MR#: [id number] : 1995 Acct:[id number] Age/Sex: 28 / F ADM Date: Loc: [facility] [address]: Bruce Cervantes D.O. Ordering Physician: Bruce Cervantes D.O. Date of Service: 10/04/23 Procedure(s): US right upper quadrant Accession Number(s): [id number] cc: Bruce Cervantes D.O.; Physician,Non-Staff M.D. The [place] [id number] Patient Name: ESTEFANIA CEDEÑO MRN: [id number] date: 1995 Sex: F Assigned Patient Location: [facility] Current Patient Location: [facility] Accession/Order Number: [id number] Exam Date: 10/04/2023 13:10 Report Date: 10/04/2023 [...] Signed By: 10/04/23 1405 DD/ 1402 TD/TT: Janitor Head: Procedure Note Radiology, Radiologist, MD - 10/04/2023 [place] [address] Ultrasound Report Signed Patient: TRINITY CEDEÑO#: [id number] : 1995Acct:[id number] Age/Sex: 28 / FADM Date: Loc: [facility] 257-[address]: Bruce Cervantes D.O. Ordering Physician: Bruce Cervantes D.O. Date of Service: 10/04/23 Procedure(s): US right upper quadrant Accession Number(s): [id number] cc: Bruce Cervantes D.O.; Physician,Non-Staff Roberto [facility] [place] [address] Patient Name: ESTEFANIA CEDEÑO MRN: [id number] date: 1995 Sex: F Assigned Patient Location: [facility] Current Patient Location: [facility] Accession/Order Number: [id number] Exam Date: 10/04/2023 13:10 Report Date: 10/04/2023 [...] M.D. Signed By:10/04/23 1405 DD/ 1402 TD/TT: Janitor Head: us Bruce Billy DO [facility] Final Result * [facility] LIPASE (10/04/2023 1:40 PM EDT) LIPASE 30.0 16.0 - 77.0 U/L [facility] 10/04/2023 1:40 PM EDT 10/04/2023 1:45 PM EDT Narrative [facility] - 10/04/2023 2:26 PM EDT us Bruce Billy DO [facility] Final Result [facility] TB * (ABNORMAL) [facility] CMP (CMP) (FOR REMOTE [facility] USE) (10/04/2023 1:40 PM EDT) SODIUM 137 136 - 145 mmol/L [facility] POTASSIUM 3.5 3.5 - 5.1 mmol/L [facility] CHLORIDE 106 98 - 107 mmol/L [facility] CARBON DIOXIDE 20.4(L) 21.0 - 32.0 mmol/L [facility] ANION GAP 14.1 [facility] GLUCOSE 72(L) 74 - 106 mg/dL [facility] BLOOD UREA NITROGEN 6.0(L) 7.0 - 18.0 mg/dL [facility] CREATININE 0.39(L) 0.55 - 1.02 mg/dL [facility] EGFR-AF CYPRIOT >60 >=60 [facility] EGFR-NON AF CYPRIOT >60 >=60 [facility] BUN CREATININE RATIO 15.4 [...] Narrative [facility] - 10/04/2023 2:26 PM EDT [facility] Billy DO [facility] Final Result Performing Organization Address [facility] Co de Phone Number [facility] * ALL AMYLASE (10/04/2023 1:40 PM EDT) Pathologist [facility] AMYLASE 58 25 - 115 U/L [facility] 10/04/2023 1:40 PM EDT 10/04/2023 1:45 PM EDT Narrative [facility] - 10/04/2023 2:14 PM EDT [facility] DO [facility] Final Result Performing Organization Address [facility] de Phone Number [facility] * OVA + PARASITE EXAM (10/04/2023 1:00 PM EDT) Pathologist [facility] OVA + PARASITE EXAM Final report . [facility] Comment: These results were obtained using wet preparation(s) and trichrome stained smear. This test does not include testing for Cryptosporidium parvum, Cyclospora, or Microsporidia. RESULT 1 Comment . [facility] Comment: No ova, cysts, or parasites seen. One negative specimen does not rule out the possibility of a parasitic infection. Performed at: [address] [id number] Financial Advisor: Rubén Ellison PhD, Phone: [phone] 10/04/2023 1:00 PM EDT 10/04/2023 1:52 PM EDT Narrative [facility] - 10/06/2023 9:09 PM EDT us Bruce Cervantes DO LAB BLOOD ORDERABLES Final Resul t [facility] documented in this encounter Visit Diagnoses Not on filedocumented in this encounter
--- OUTSIDE RECORDS SUMMARY | 2025-02-06 12:07 | XMS_ITS | Encounter Summary ---
Author Organization [facility] Address [address] [place] [address] Care Team Providers Care General Foreman Name Role Phone Unavailable Primary Care Provider Unavailabl e Encounter Details Date Type Department Care Team (Late st Contact Info) Description 02/06/2025 Bamboo flowsheet DENISE CESAR [address] [facility] [place] [address] Aditya Cervantes, DO [address] [place] [address] Social History Tobacco Use Types Packs/Day [...] AM EDT Routine NOMJean Carlos CESAR [address] [place] [address] Aditya Cervantes, DO [address] [place] [address] 02/28/2025 9:50 AM EDT Office Visit DENISE CESAR [address] [place] [address] Nedra Raymond, HARBOUR MASTER [address] [place] [address] documented as of this encounter Visit Diagnoses Not on filedocumented in this encounter
--- OUTSIDE RECORDS SUMMARY | 2025-02-06 12:07 | XMS_ITS | Encounter Summary ---
Author Organization [facility] Address [address] [facility] [place] [address] Care Team Providers Care Commission Specialist Name Role Phone Unavailable Primary Care Provider Unavailabl e Encounter Details Date Type Department Care Team (Late st Contact Info) Description 10/06/2024 Orders Only DENISE CESAR [address] [place] [address] Maria Elena Dolan MA Social History [...] Routine NOMJean Carlos CESAR [address] [place] [address] Aditya Cervantes DO [address] [place], [place] [phone] 02/28/2025 9:50 AM EDT Office Visit DENISE CESAR [address] [place] [address] Nedra Raymond, TONE [address] [place] [address] documented as of this encounter Procedures Procedure Name Priority Date/Time Associated Diagnosis Comments PAP SMEAR Routine 09/26/2024 12:00 AM EDT documented in this encounter Results * Pap Smear (09/26/2024 12:00 AM EDT) Swab Cervical swab / Unknown us Aditya Billy DO LAB CYTOLOGY ORDERABLES Final Re sult EXTERNAL LAB documented in this encounter Visit Diagnoses Not on filedocumented in this encounter
--- OUTSIDE RECORDS SUMMARY | 2025-02-06 12:07 | XMS_ITS | Encounter Summary ---
Author Organization [facility] Address [address] [place] [address] Care Team Providers Care Flooring Salesperson Name Role Phone Unavailable Primary Care Provider Unavailabl e Encounter Details Date Type Department Care Team (Late st Contact Info) Description 10/05/2023 Clinisync Result Encounter NOMS External Department Unsolicited Bruce Cervantes DO [address] [place], [place] [address] Social History Tobacco Use Types Packs/Day Years [...] 9:10 AM EDT Routine NOMJean Carlos CESAR [address] [place] [address] [place] [address] Bruce Cervantes DO [address] [place], [place] [address] 02/28/2025 9:50 AM EDT Office Visit NOMJean Carlos CESAR [address] [place] [place] [address] Nedra Raymond, HATCHERY LABORER [address] [place] [address] documented as of this encounter Procedures Procedure Name Priority Date/Time Associated Diagnosis Comments CT ABDOMEN/PELVIS WO CONT 10/05/2023 8:17 AM EDT documented in this encounter Results * CT ABDOMEN/PELVIS WO CONT (10/05/2023 8:17 AM EDT) Anatomical Region Laterality Modality Radiographic Mari ging 10/05/2023 8:17 AM EDT Narrative 10/05/2023 8:20 [place] [address] CT Scan Report Signed Patient: ESTEFANIA CEDEÑO MR#: [id number] : 1995 Acct:[id number] Age/Sex: 28 / F ADM Date: Loc: [facility] 257- Attending Dr: Bruce Cervantes D.O. Ordering Physician: Bruce Cervantes D.O. Date of Service: 10/05/23 Procedure(s): CT abdomen pelvis wo con Accession Number(s): [id number] cc: Physician,Non-Staff M.D. [place] [address] Patient Name: ESTEFANIA CEDEÑO MRN: [id number] date: 1995 Sex: F Assigned Patient Location: [facility] Current Patient Location: [facility] Accession/Order Number: [id number] Exam Date: 10/05/2023 07:38 Report Date: 10/05/2023 [...] M.D. Signed By: 10/05/23819 DD/ 6 TD/TT: Supervising Chef: Procedure Note Radiology, Radiologist, MD - 10/05/2023 [place] [address] CT Scan Report Signed Patient: TRINITY CEDEÑO#: [id number] : 1995Acct:[id number] Age/Sex: 28 / FADM Date: Loc: [facility] 257-[address]: Bruce Cervantes D.O. Ordering Physician: Bruce Cervantes D.O. Date of Service: 10/05/23 Procedure(s): CT abdomen pelvis wo con Accession Number(s): [id number] cc: Physician,Non-Staff Roberto The [place] [id number] Patient Name: ESTEFANIA CEDEÑO MRN: [id number] date: 1995 Sex: F Assigned Patient Location: [facility] Current Patient Location: [facility] Accession/Order Number: [id number] Exam Date: 10/05/2023 07:38 Report Date: 10/05/2023 [...] Krueger M.D. Signed By:10/05/23819 DD/ 6 TD/TT: Supervising Chef: us Bruce Cervantes DO IMG XR PROCEDURES Final Result documented in this encounter Visit Diagnoses Not on filedocumented in this encounter
--- OUTSIDE RECORDS SUMMARY | 2025-02-06 12:14 | XMS_ITS | CCD ---
Author Organization [facility] Care Team Providers Care Welder/Installer Name Role Phone NO FAMILY PHYSICIAN, 837 Unavailable Unavail able FELIX GALVAN Unavailable Unavailable Miguel Holley Primary Care Provider [phone] Jackson Haas Primary Care Provider [phone] Miguel Holley Primary Care Provider Miguel Holley Primary Care Provider Miguel Holley CNP Primary Care Provider Dell DIRECTOR OF CATERING SALES - DIANELYS, Miguel Berry Primary Care Provider MIGUEL HOLLEY Referring Unavailable MIGUEL HOLLEY Primary Care Unavailable Dell DIRECTOR OF CATERING SALES - DIANELYS, Miguel Berry Primary Care Provider Dell DIRECTOR OF CATERING SALES - DIANELYS, Miguel Berry Primary Care Provider Shona Lucio Primary Care Physician Yeison Holley DIRECTOR OF CATERING SALES - EXTENSION SERVICE SPECIALIST IN CHARGE, Miguel Berry Primary Care Provider Dell DIRECTOR OF CATERING SALES - Miguel IVORY Primary Care Provider Unavailable [...] Drug Allergy 10-14-19 14 Other (See Comments) [facility] Lisdexamfetamine (1 source) Lisdexamfetamine Drug Allergy 10-04-19 21 Vyvanse [facility] Work Phone: Naltrexone (4 sources) Naltrexone; Translations: [Naltrexone HCl 50 MG Oral Tablet] Drug Allergy 03-05-20 20 Naltrexone HCl [facility] Work Phone: (1 source) Triamcinolone; Translations: [TRIAMCINOLONE ACETONIDE] Drug Allergy 10-12-19 15 [facility] Rep[facility] (16 sources) Triamcinolone; Translations: [Kenalog] Drug Allergy 07-06-19 20 [facility] Work Phone: (20 sources) Triamcinolone Drug Allergy 10-14-19 14 Other (See Comments), Other, Hives [place], [place] (17 sources) Poison spencer Allergy to [...] Active Continuous Glucose Sensor (Dexcom G6 Sensor) [facility] (18 sources) Start: 01-18-2025 Continuous Glucose Sensor (Dexcom G6 Sensor) [facility] Indications: Elevated glucose tolerance test , 28 weeks gestation of ([facility]) , Gestational diabetes mellitus (GDM), antepartum, gestational diabetes method of control unspecified ([facility]) 1 each Every 10 (ten) days 3 each 3 01/18/2025 Active Start: 12-13-2024 Continuous Glu cose Sensor (Dexcom G6 Sensor) [facility] Indications: Elevated glucose tolerance test , 28 weeks gestation of ([facility]) , Gestational diabetes mellitus (GDM), antepartum, gestational diabetes method of control unspecified ([facility]) 1 each Every 10 (ten) days 3 each 3 12/13/2024 Active Continuous Glucose Transmitt er (Dexcom G6 transmitter) mis (16 sources) Start: 12-19-2024 Continuous Glu cose Transmitter (Dexcom G6 transmitter) [facility] Indications: Gestational diabetes mellitus (GDM), antepartum, gestational diabetes method of control unspecified ([facility]) Use as instructed 1 each 12/19/2024 Active [...] ibuprofen 800 MG tablet 01/06/2024 Active levonorgestrel 0.086253 mg/hr intrauterine system (17 sources) Progestin, Progestin-containin g Intrauterine Device Start : 07-20 Mirena (52 MG) 20 MCG/24HR Intrauterine Intrauterine device 07/20/2019 Provider: 24 hr metFORMIN hydrochloride 500 mg extended release oral tablet (19 sources) Biguanide Start : 06-14 End: 06-14 take 1 tablet by mouth every twenty-four hours at mealtime metFORMIN XR (Glucophage-XR) 500 MG 24 hr tablet Indications: Hyperglycemia during ([facility]) Take 1 tablet (500 mg) [...] Tablet 08/17/2019 - 09/14/2019 Provider: Miguel Holley EXTENSION SERVICE SPECIALIST IN CHARGE polysaccharide iron complex 391 mg oral capsule [...] supervision of normal first in first trimester ([facility]) Take 1 tablet by mouth [...] MG Oral Tablet 03/05/2020 Provider: Miguel Holley EXTENSION SERVICE SPECIALIST IN CHARGE Completed/Discontinued Medications Medication Drug Class(es) Dates Sig [...] [34 weeks gestation of ] 01-23-2025 Episodic Residual codes; unclassified (2 sources) Gestation period, 36 weeks; Translations: [36 weeks gestation of ] 02-06-2025 Episodic Unclassified (1 source) Patient encounter status; [...] US OB BPP W NON-STRESS on 02-02-2025 [place] [address] Ultrasound Report Signed Patient: ESTEFANIA CEDEÑO MR#: [id number] : 1995 Acct:[id number] Age/Sex: 29 / F ADM Date: 02/02/25 Loc: US Attending Dr: Aditya Cervantes D.O. Ordering Physician: Aditya Cervantes D.O. Date of Service: 02/02/25 Procedure(s): US OB BPP w non-stress Accession Number(s): [id number] cc: Aditya Cervantes D.O.; Physician,Non-Staff [place] [address] Patient Name: ESTEFANIA CEDEÑO MRN: [id number] date: 1995 Sex: F Assigned Patient Location: [facility] Current Patient Location: Accession/Order Number: [id number] Exam Date: 02/02/2025 09:12 Report Date: 02/02/2025 [...] Bright M.D. 02/02/2025 10:17 AM Dictation Location: [place] [address] Electronically authenticated by: [id number] Y Date: 02/02/2025 10:17 Dictated By: Lindsey Bright M.D. Signed By: 02/02/25 1020 DD/ 1017 TD/TT: Vascular Sonographer: [facility] Radiology, Radiologi MD raymond - 02/02/2025 [place] [address] Ultrasound Report Signed Patient: ESTEFANIA CEDEÑO MR#: [id number] : 1995 Acct:[id number] Age/Sex: 29 / F ADM Date: 02/02/25 Loc: US Attending Dr: Aditya Cervantes D.O. Ordering Physician: Aditya Cervantes D.O. Date of Service: 02/02/25 Procedure(s): US OB BPP w non-stress Accession Number(s): [id number] cc: Aditya Cervantes D.O.; Physician,Non-Staff Roberto [place] [id number] Patient Name: ESTEFANIA CEDEÑO MRN: [facility]:[id number] date: 1995 Sex: F Assigned Patient Location: [facility] Current Patient Location: Accession/Order Number: [id number] Exam Date: 02/02/2025 09:12 Report Date: 02/02/2025 [...] Bright M.D. 02/02/2025 10:17 AM Dictation Location: [place] Electronically authenticated by: [id number] Y Date: 02/02/2025 10:17 Dictated By: Lindsey Bright M.D. Signed By: 02/02/25 1020 DD/ 1017 TD/TT: Vascular Sonographer: [facility] Radiology Study observation (narrative) [facility] OB BPP W NON-STRESS Ordered By: Radiologist Radiology on 02-02-2025 [facility] Work Phone: No Panel InformationOrdered By: Radiologist Radiology on 01-26-2025 [facility] Work Phone: No Panel Informationon 01-26 Radiology Study observation (narrative) [facility] US OB BPP W NON-STRESS on 01-26-2025 [place] [address] Ultrasound Report Signed Patient: ESTEFANIA CEDEÑO MR#: [id number] : 1995 Acct:[id number] Age/Sex: 29 / F ADM Date: 01/26/25 Loc: US Attending Dr: Aditya Cervantes D.O. Ordering Physician: Aditya Cervantes D.O. Date of Service: 01/26/25 Procedure(s): US OB BPP w non-stress Accession Number(s): [id number] cc: Aditya Cervantes D.O.; Physician,Non-Staff Roberto [place] [id number] Patient Name: ESTEFANIA CEDEÑO MRN: [id number] date: 1995 Sex: F Assigned Patient Location: [facility] Current Patient Location: Accession/Order Number: [id number] Exam Date: 01/26/2025 09:08 Report Date: 01/26/2025 [...] Bright M.D. 01/26/2025 11:00 AM Dictation Location: [place] [address] Electronically authenticated by: [id number] Y Date: 01/26/2025 11:00 Dictated By: Lindsey Bright M.D. Signed By: 01/26/25 1103 DD/ 1100 TD/TT: Vascular Sonographer: [facility] Radiology, Radiologestefania andrade MD - 01/26/2025 [place] [address] Ultrasound Report Signed Patient: ESTEFANIA CEDEÑO MR#: [id number] : 1995 Acct:[id number] Age/Sex: 29 / F ADM Date: 01/26/25 Loc: US Attending Dr: Aditya Cervantes D.O. Ordering Physician: Aditya Cervantes D.O. Date of Service: 01/26/25 Procedure(s): US OB BPP w non-stress Accession Number(s): [id number] cc: Aditya Cervantes D.O.; Physician,Non-Staff Roberto [place] [address] Patient Name: ESTEFANIA CEDEÑO MRN: [facility]:[id number] date: 1995 Sex: F Assigned Patient Location: [facility] Current Patient Location: Accession/Order Number: [id number] Exam Date: 01/26/2025 09:08 Report Date: 01/26/2025 [...] Bright M.D. 01/26/2025 11:00 AM Dictation [facility] Electronically authenticated by: [id number] Y Date: 01/26/2025 11:00 Dictated By: Lindsey Bright M.D. Signed By: 01/26/25 1103 DD/ 1100 TD/TT: Vascular Sonographer: [facility] OB GROWTHon 01-26-2025 [place] [address] Ultrasound Report Signed Patient: ESTEFANIA CEDEÑO MR#: [id number] : 1995 Acct:[id number] Age/Sex: 29 / F ADM Date: 01/26/25 Loc: Attending Dr: Aditya Cervantes D.O. Ordering Physician: Aditya Cervantes D.O. Date of Service: 01/26/25 Procedure(s): US OB growth Accession Number(s): [id number] cc: Aditya Cervantes D.O.; Physician,Non-Staff Roberto The [address] [address] Patient Name: ESTEFANIA CEDEÑO MRN: [id number] date: 1995 Sex: F Assigned Patient Location: Current Patient Location: Accession/Order Number: [id number] Exam Date: 01/26/2025 09:08 Report Date: 01/26/2025 [...] Bright M.D. 01/26/2025 11:00 AM Dictation Location: [place] [address] Electronically authenticated by: [id number] Y Date: 01/26/2025 11:00 Dictated By: Lindsey Bright M.D. Signed By: 01/26/25 1103 DD/ 1100 TD/TT: Vascular Sonographer: [facility] Radiology, Radiologi MD raymond - 01/26/2025 [place] [address] Ultrasound Report Signed Patient: ESTEFANIA CEDEÑO MR#: [id number] : 1995 Acct:[id number] Age/Sex: 29 / F ADM Date: 01/26/25 Loc: US Attending Dr: Aditya Cervantes D.O. Ordering Physician: Aditya Cervantes D.O. Date of Service: 01/26/25 Procedure(s): US OB growth Accession Number(s): [id number] cc: Aditya Cervantes D.O.; Physician,Non-Staff M.DAsiya [place] [id number] Patient Name: ESTEFANIA CEDEÑO MRN: [id number] date: 1995 Sex: F Assigned Patient Location: Current Patient Location: Accession/Order Number: [id number] Exam Date: 01/26/2025 09:08 Report Date: 01/26/2025 [...] Bright M.D. 01/26/2025 11:00 AM Dictation Location: [place] Electronically authenticated by: [id number] Y Date: 01/26/2025 11:00 Dictated By: Lindsey Bright M.D. Signed By: 01/26/25 1103 DD/ 1100 TD/TT: [facility] W NON-STRESS on 01-19-2025 [place] [address] Ultrasound Report Signed Patient: ESTEFANIA CEDEÑO MR#: [id number] : 1995 Acct:[id number] Age/Sex: 29 / F ADM Date: 01/19/25 Loc: US Attending Dr: Aditya Cervantes D.O. Ordering Physician: Aditya Cervantes D.O. Date of Service: 01/19/25 Procedure(s): US OB BPP w non-stress Accession Number(s): [id number] cc: Aditya Cervantes D.O.; Physician,Non-Staff [place] [id number] Patient Name: ESTEFANIA CEDEÑO MRN: [id number] date: 1995 Sex: F Assigned Patient Location: [facility] Current Patient Location: Accession/Order Number: [id number] Exam Date: 01/19/2025 09:10 Report Date: 01/19/2025 [...] Saez M.D. 01/19/2025 2:26 PM Dictation Location: [place] [address] Electronically authenticated by: [id number] Y Date: 01/19/2025 14:26 Dictated By: Carroll Saez D.O. Signed By: 01/19/25 1429 DD/ 1426 TD/TT: Vascular Sonographer: [facility] Radiology, Radiologi MD raymond - 01/19/2025 [place] [address] Ultrasound Report Signed Patient: ESTEFANIA CEDEÑO MR#: [id number] : 1995 Acct:[id number] Age/Sex: 29 / F ADM Date: 01/19/25 Loc: US Attending Dr: Aditya Cervantes D.O. Ordering Physician: Aditya Cervantes D.O. Date of Service: 01/19/25 Procedure(s): US OB BPP w non-stress Accession Number(s): [id number] cc: Aditya Cervantes D.O.; Physician,Non-Staff Roberto The [place] [id number] Patient Name: ESTEFANIA CEDEÑO MRN: [facility]:[id number] date: 1995 Sex: F Assigned Patient Location: [facility] Current Patient Location: Accession/Order Number: [id number] Exam Date: 01/19/2025 09:10 Report Date: 01/19/2025 [...] Saez M.D. 01/19/2025 2:26 PM Dictation Location: [facility] Electronically authenticated by: [id number] Y Date: 01/19/2025 14:26 Dictated By: Carroll Saez D.O. Signed By: 01/19/25 1429 DD/ 25 TD/TT: Vascular Sonographer: [facility] Radiology Study observation (narrative) [facility] US OB BPP W NON-STRESS Ordered By: Radiologist Radiology on 01-19-2025 [facility] Work Phone: Urinalysis macro (dipstick) panel (U)on 01-09-2025 Bilirubin, UA Negative Negative - 4(70) +++ mg/dL [facility] Blood, UA Negative Negative - 50 Chuy/mcL [facility] Clarity, UA Clear [facility] Color, UA Yellow [facility] Glucose, UA Negative Negative - 2000(110) ++++ mg/dL [facility] Interpretation and review of laboratory results Normal [facility] Ketones, UA Negative Negative - 160(16) ++++ mg/dL [facility] Leukocytes, UA Negative Negative - 500+++ Sadi/mcL [facility] Nitrite, UA Negative Negative - Positive [facility] pH, UA 6.5 5 - 9 [facility] Protein, UA Negative Negative - 2000(20) ++++ mg/dL [facility] Spec Grav, UA 1.015 1 - 1.03 [facility] Urobilinogen, UA 1.0 0.2 - 12 mg/dL [facility] US OB FOLLOW UP TRANSABDOMIN AL APPROACHon [...] II, MD, PHD at 28-Dec-2024 08:33:38 AM [facility] Normal Not Available Comment on above: Order Comment: US OB SCAN FOR GROWTH Estimated Date of Delivery: 03/06/25 Gestational Age as of 12/13/2024: 28w1d Urinalysis macro (dipstick) panel (U)on 12-27-2024 Bilirubin, UA Negative Negative - 4(70) +++ mg/dL [facility] Blood, UA Negative Negative - 50 Chuy/mcL [facility] Clarity, UA Clear [facility] Color, UA Yellow [facility] Glucose, UA Positive Negative - 1999(110) ++++ mg/dL [facility] Interpretation and review of laboratory results Abnormal [facility] Ketones, UA Negative Negative - 160(16) ++++ mg/dL [facility] Leukocytes, UA Negative Negative - 500+++ Sadi/mcL [facility] Nitrite, UA Negative Negative - Positive [facility] pH, UA 6 5 - 9 [facility] Protein, UA Positive Negative - 1999(20) ++++ mg/dL [facility] Spec Grav, UA 1.02 1 - 1.03 [facility] Urobilinogen, UA 1.0 0.2 - 12 mg/dL [facility] Urinalysis macro (dipstick) panel (U)on 12-13-2024 Bilirubin, UA Negative Negative - 4(70) +++ mg/dL [facility] Blood, UA Negative Negative - 50 Chuy/mcL [facility] Clarity, UA Clear [facility] Color, UA Yellow [facility] Glucose, UA Negative Negative - 1999(110) ++++ mg/dL [facility] Interpretation and review of laboratory results Normal [facility] Ketones, UA Negative Negative - 160(16) ++++ mg/dL [facility] Leukocytes, UA Negative Negative - 500+++ Sadi/mcL [facility] Nitrite, UA Negative Negative - Positive [facility] pH, UA 6 5 - 9 [facility] Protein, UA Negative Negative - 1999(20) ++++ mg/dL [facility] Spec Grav, UA 1.015 1 - 1.03 [facility] Urobilinogen, UA 1.0 0.2 - 12 mg/dL [facility] GLUCOSE TOLERANCE 3 HOURon 0 12-12-2024 GLUCOSE TOLERANCE 3 HOUR High mg/dL [facility] Comment on above: GLU FAST 85 (<95) Co l: 12/12/24 1118 GLU 1HR 198H (<180) Col: 12/12/24 1220 GLU 2HR 171H (<155) Col: 12/12/24 1320 GLU 3HR 74 (<140) Col: 12/12/24 1422 Interpretation and review of laboratory results Abnormal [facility] ECG 12-LEADon 12-07-2024 [place] [address] Electrocardiograph Report Signed Patient: ESTEFANIA CEDEÑO MR#: [id number] : 1995 Acct:[id number] Age/Sex: 29 / F ADM Date: 12/05/24 Loc: CR Attending Dr: Latasha Padgett Ordering Physician: Latasha Padgett Date of Service: 12/05/24 Procedure(s): ECG 12 lead Accession Number(s): [id number] cc: [facility] Test Date: 2024-12-05 Pat Name: ESTEFANIA CEDEÑO Department: Room: - Gender: Female Heel Sewer: : 1995 Requested By: 0923 Order Number: [id number] Asia MD: ANTON THORPE Measurements Intervals [place] Rate: 68 P: 55 DE: 116 QRS: 72 QRSD: 94 T: 14 QT: 411 QTc: 439 Interpretive Statements SINUS RHYTHM WITH SHORT DE INTERVAL NONSPECIFIC T-WAVE ABNORMALITY No previous ECG available for comparison Electronically Signed On 12-07-2024 9:00:49 EDT by ANTON THORPE Dictated By: Anton Thorpe M.D. Signed By: 12/07/2489912/07/24899 DD/ 6 TD/TT: Vascular Sonographer: [facility] Radiology, Radiologestefania andrade MD - 12/07/2024 [place] [address] Electrocardiograph Report Signed Patient: ESTEFANIA CEDEÑO MR#: [id number] : 1995 Acct:[id number] Age/Sex: 29 / F ADM Date: 12/05/24 Loc: CR Attending Dr: Latasha Padgett Ordering Physician: Latasha Padgett Date of Service: 12/05/24 Procedure(s): ECG 12 lead Accession Number(s): [id number] cc: [facility] Test Date: 2024-12-05 Pat Name: ESTEFANIA CEDEÑO Department: Room: - Gender: Female Heel Sewer: : 1995 Requested By: 0923 Order Number: [id number] Reading MD: ANTON THORPE Measurements Intervals [place] Rate: 68 P: 55 DE: 116 QRS: 72 QRSD: 94 T: 14 QT: 411 QTc: 439 Interpretive Statements SINUS RHYTHM WITH SHORT DE INTERVAL NONSPECIFIC T-WAVE ABNORMALITY No previous ECG available for comparison Electronically Signed On 12-07-2024 9:00:49 EDT by ANTON THORPE Dictated By: Anton Thorpe M.D. Signed By: 12/07/2489912/07/24899 DD/ 6 TD/TT: Vascular Sonographer: [facility] ECG 12-LEADOrdered By: Radio logist Radiology on 12-07-2024 [facility] Work Phone: ALL CBC WITH AUTO DIFFon BASOPHILS ABSOLUTE AUTO 0 [facility] Basophils/100 WBC (Bld) 0.2 % 0.2 - 2.0 % [facility] Eosinophils/100 WBC (Bld) 0.6 % Low 0.9 - 7.0 % [facility] Erythrocyte distribution width (RBC) [Ratio] 13.7 % 11.0 - 15.0 % [facility] Hematocrit (Bld) [Volume fraction] 34.3 % Low 36.0 - 48.0 % [facility] Hemoglobin (Bld) [Mass/Vol] 11.5 g/dL Low 12.0 - 16.0 g/dL [facility] IMMATURE GRANULOCYTES ABS AUTO 0.08 High [facility] Immature granulocytes/100 WBC (Bld) 0.7 % High 0.0 - 0.5 % [facility] Interpretation and review of laboratory results Abnormal [facility] LYMPHOCYTES ABSOLUTE AUTO 2.1 [facility] Lymphocytes/100 WBC (Bld) 18.9 % Low 20.5 - 60.0 % [facility] MCH (RBC) [Entitic mass] 27.8 pg 26.7 - 34.0 pg [facility] MCHC (RBC) [Mass/Vol] 33.5 g/dL 29.9 - 35.2 g/dL [facility] MCV (RBC) [Entitic vol] 82.9 fL 81.0 - 99.0 fL [facility] MONOCYTES ABSOLUTE AUTO 0.5 [facility] Monocytes/100 WBC (Bld) 4 % 1.7 - 12.0 % [facility] NEUTROPHILS ABSOLUTE AUTO 8.6 High [facility] Neutrophils/100 WBC (Bld) 75.6 % High 43.0 - 75.0 % [facility] Platelet mean volume (Bld) [Entitic vol] 11.1 fL 9.5 - 13.5 fL [facility] TBH EO # 0.1 [facility] PLT 140 Low [facility] RBC 4.14 Low [facility] WBC 11.3 High [facility] ECG 12-LEADon 12-05-2024 Radiology Study observation (narrative) [facility] Urinalysis macro (dipstick) panel (U)on 11-22-2024 Bilirubin, UA Negative Negative - 4(70) +++ mg/dL [facility] Blood, UA Negative Negative - 50 Chuy/mcL [facility] Clarity, UA Clear [facility] Color, UA Yellow [facility] Glucose, UA Negative Negative - 2000(110) ++++ mg/dL [facility] Interpretation and review of laboratory results Abnormal [facility] Ketones, UA Positive Negative - 160(16) ++++ mg/dL [facility] Comment on above: trace Leukocytes, UA Negative Negative - 500+++ Sadi/mcL [facility] Nitrite, UA Negative Negative - Positive [facility] pH, UA 6.5 5 - 9 [facility] Protein, UA Negative Negative - 2000(20) ++++ mg/dL [facility] Spec Grav, UA 1.025 1 - 1.03 [facility] Urobilinogen, UA 0.2 0.2 - 12 mg/dL [facility] MHPT AFP, MATERNALon 025 MHPT DETERMINED BY [facility]tras[facility] SEE NOTE [facility] Comment on above: Results for Estimate d Due Date: 03 06 25 MHPT FAMILY HISTORY No [facility] MHPT GESTAT AGE (EXACT) 20 wks, 0 days [facility] MHPT INS REQ MATERN DIAB No [facility] Screen Neg [facility] Comment on above: (NOTE) INTERPRETATION: SCREEN NEGATIVE for open spina bifida Neural Tube Defects (NTD) Negative Pre-Test Post-Test Cutoff Neural Tube Defects Risks 1:1030 < 1:66589 1:250 Comments: The risk of an open neural tube defect is less than the screening cut-off. This test was developed and its performance characteristics determined by [employer]. It has not been cleared or approved by the [place] Food and Drug Administration. This test was performed in a CLIA certified laboratory and is intended for clinical purposes. MHPT [age] [facility] MHPT MATERNAL RACE Nonblack [facility] MHPT MATERNAL WEIGHT 234.0 lbs. [facility] M[facility] FOR AFP 0.82 [facility] NUMBER OF FETUSES Sanchez NO [facility] MHPT PATIENT'S AFP 36 ng/mL [facility] S[facility] Unknown [facility] SPE[facility]IMEN See Note [facility] Comment on above: (NOTE) Initial sample Performed By: [employer] [address] [place] [id number] Barrel Cutter: Pranay Rousseau MD, PhD CLIA Number: [id number] Original Ordering Provider: ADITYA CRAVEN [facility] Urinalysis macro (dipstick) panel (U)on 10-25-2024 Bilirubin, UA Negative Negative - 4(70) +++ mg/dL [facility] Blood, UA Negative Negative - 50 Chuy/mcL [facility] Clarity, UA Clear [facility] Color, UA Yellow [facility] Glucose, UA Negative Negative - 2000(110) ++++ mg/dL [facility] Interpretation and review of laboratory results Normal [facility] Ketones, UA Negative Negative - 160(16) ++++ mg/dL [facility] Leukocytes, UA Negative Negative - 500+++ Sadi/mcL [facility] Nitrite, UA Negative Negative - Positive [facility] pH, UA 5.5 5 - 9 [facility] Protein, UA Negative Negative - 2000(20) ++++ mg/dL [facility] Spec Grav, UA 1.03 1 - 1.03 [facility] Urobilinogen, UA 0.2 0.2 - 12 mg/dL [facility] AFP, Maternalon 10-20-2024 Determined by Ultrasound [facility] Comment on above: Performed By: #### A AFPM #### [facility] [address] [place] [address] Industrial Real Estate Agent: Dallas Xiong MD Due Date SEE NOTE [facility] Comment on above: Result Comment: Resu lts for Estimated Due Date: 03 06 25 Performed By: #### A AFPM #### [facility] [address] [place] [address] [employer] Real Estate Agent: Dallas Xiong MD Family History No Normal [facility] Comment on above: Performed By: #### A AFPM #### [facility] [address] [place], [place] [id number] [employer] Agent: Dallas Xiong MD Gestat Age (exact) 20 wks, 0 days Normal [facility] Comment on above: Performed By: #### A AFPM #### [facility] [address] [place] [address] [employer] Agent: Dallas Xiong MD Ins Req Matern Diab No Normal [facility] Comment on above: Performed By: #### A AFPM #### [facility] [address] [place] [address] [employer] Agent: Dallas Xiong MD Interpretation Screen Neg Normal [facility] in Hospital Comment on above: Result Comment: (NOT E) INTERPRETATION: SCREEN NEGATIVE for open spina bifida Neural Tube Defects (NTD) Negative Pre-Test Post-Test Cutoff Neural Tube Defects Risks 1:1030 < 1:29285 1:250 Comments: The risk of an open neural tube defect is less than the screening cut-off. This test was developed and its performance characteristics determined by [employer]. It has not been cleared or approved by the US Food and Drug Administration. This test was performed in a CLIA certified laboratory and is intended for clinical purposes. Performed By: #### A AFPM #### [facility] [address] [place] [address] [employer] Real Estate Agent: Dallas Xiong MD [age] [facility] Comment on above: Performed By: #### A AFPM #### [facility] [address] [place], [place] [id number] [employer] Agent: Dallas Xiong MD Maternal Race Nonblack [facility] Comment on above: Performed By: #### A AFPM #### [facility] [address] [place] [address] [employer] Agent: Dallas Xiong MD Maternal Weight 234.0 lbs. [facility] Comment on above: Performed By: #### A AFPM #### [facility] [address] [place] [address] [employer] Agent: Dallas Xiong MD MoM for AFP 0.82 [facility] Comment on above: Performed By: #### A AFPM #### [facility] [address] [place] [address] [employer] Real Estate Agent: Dallas Xiong MD Number of Fetuses Sanchez [facility] Comment on above: Performed By: #### A AFPM #### [facility] [address] [place], [place] [id number] [employer] Agent: Dallas Xiong MD Patient's AFP 36 ng/mL [facility] Comment on above: Performed By: #### A AFPM #### [facility] [address] [place] [address] [employer] Real Estate Agent: Dallas Xiong MD Smoking Unknown [facility] Comment on above: Performed By: #### A AFPM #### [employer] [facility] [address] [place], [place] [id number] [employer] Real Estate Agent: Dallas Xiong MD Specimen See Note [facility] Comment on above: Result Comment: (NOT E) Initial sample Performed By: [facility] [address] [place] [address] Barrel Cutter: Pranay Rousseau MD, PhD CLIA Number: [id number] Performed By: #### A AFPM #### [facility] [address] [place], [place] [id number] Industrial Real Estate Agent: Dallas Xiong MD IGP,APTIMA HPV,AGE GDLNon AGE GDLN ACOG TESTING Note . [facility] Comment on above: TESTS RESULT FLAG UN ITS REF RANGE LAB Clinician Provided Cytology Information Other.............. No. of containers..01 ThinPrep Vial Age Algo ACOG Geetha... FLAG LEGEND: L-Low Normal,H-High Normal,LL-Alert Low,HH-Alert High <-Panic Low,>-Panic High,A-Abnormal,AA-Critical Abnormal Performed at: 01 =G [facility] [place] [address] [place] [address] Lynda Almaguer MD, IGP, RFX APTIMA HPV ASCU Note . [facility] Comment on above: TESTS RESULT FLAG U NITS REF RANGE LAB DIAGNOSIS: 02 NEGATIVE FOR INTRAEPITHELIAL LESION OR MALIGNANCY. FUNGAL ORGANISMS MORPHOLOGICALLY CONSISTENT WITH MARTHA SPECIES ARE PRESENT. CELLULAR CHANGES ASSOCIATED WITH INFLAMMATION ARE PRESENT. Specimen adequacy: 02 Satisfactory for evaluation. Endocervical and/or squamous metaplastic cells (endocervical component) are present. Performed by: Juliana Correia, Portal Developer . 02 Note: Note 02 The Pap [...] Low,>-Panic High,A-Abnormal,AA-Critical Abnormal Performed at: [address] [facility] [address] [address] Lynda Almaguer MD, Performed at: = - [facility] [address] [id number] [employer] Agent: Lynda Almaguer MD, Phone: [phone] Performed at: - [facility] [id number] [employer] Estate Agent: Lynda Almaguer MD, Phone: [phone] BRUSH-SPATULA BRUSH-ALONE 2 [facility] US OB 14+ WEEKS ANATOMY SCAN on [...] II, MD, PHD at 25-Oct-2024 11:18:35 PM [facility] Normal Not Available Comment on above: Order Comment: US OB ANATOMY SINGLE W US OB CERVICAL LENGTH Estimated Date of Delivery: 03/06/25 Gestational Age as of 09/26/2024: 17w0d Urinalysis macro (dipstick) panel (U)on 09-26-2024 Bilirubin, UA Negative Negative - 4(70) +++ mg/dL [facility] Blood, UA Negative Negative - 50 Chuy/mcL [facility] Clarity, UA Clear [facility] Color, UA Yellow [facility] Glucose, UA Negative Negative - 1999(110) ++++ mg/dL [facility] Interpretation and review of laboratory results Normal [facility] Ketones, UA Positive Negative - 160(16) ++++ mg/dL [facility] Leukocytes, UA Negative Negative - 500+++ Sadi/mcL [facility] Nitrite, UA Negative Negative - Positive [facility] pH, UA 7 5 - 9 [facility] Protein, UA Negative Negative - 2000(20) ++++ mg/dL [facility] Spec Grav, UA 1.02 1 - 1.03 [facility] Urobilinogen, UA 0.2 0.2 - 12 mg/dL [facility] Urinalysis macro (dipstick) panel (U)on 08-29-2024 Bilirubin, UA Negative Negative - 4(70) +++ mg/dL [facility] Blood, UA Positive Negative - 50 Chuy/mcL [facility] Comment on above: trace-intact Clarity, UA Clear [facility] Color, UA Yellow [facility] Glucose, UA Negative Negative - 2000(110) ++++ mg/dL [facility] Interpretation and review of laboratory results Abnormal [facility] Ketones, UA Negative Negative - 160(16) ++++ mg/dL [facility] Leukocytes, UA Negative Negative - 500+++ Sadi/mcL [facility] Nitrite, UA Negative Negative - Positive [facility] pH, UA 7 5 - 9 [facility] Protein, UA Negative Negative - 1999(20) ++++ mg/dL [facility] Spec Grav, UA 1.025 1 - 1.03 [facility] Urobilinogen, UA 0.2 0.2 - 12 mg/dL [facility] US OB TRANSVAGINALon 025 US OB TRANSVAGINAL [...] II, MD, PHD at 05-Aug-2024 09:13:53 AM [facility] Normal Not Available Comment on above: Order Comment: US OB TRANSVAGINAL No LMP recorded. TBH PREG QUANT HCGon 025 HCG QUANTITATIVE 42871 mIU/mL [facility] Comment on above: 5-50 0.2-1 WEEK 50-500 1-2 WEEKS 100-5,000 2-3 WEEKS 500-10,000 3-4 WEEKS 1,000-50,000 4-5 WEEKS 10,000-100,000 5-6 WEEKS 15,000-200,000 6-8 WEEKS 10,000-100,000 2[facility] PREG QUANT HCGon 025 HCG QUANTITATIVE 846[address] mIU/mL [facility] Comment on above: 5-50 0.2-1 WEEK 50-500 1-2 WEEKS 100-5,000 2-3 WEEKS 500-10,000 3-4 WEEKS 1,000-50,000 4-5 WEEKS 10,000-100,000 5-6 WEEKS 15,000-200,000 6-8 WEEKS 10,000-100,000 2-3 MONTHS [facility] Urinalysis macro (dipstick) panel (U)on 07-15-2023 Bilirubin, UA Negative Negative - 4(70) +++ mg/dL [facility] Blood, UA Negative Negative - 50 Chuy/mcL [facility] Clarity, UA Clear [facility] Color, UA Yellow [facility] Glucose, UA Negative Negative - 1999(110) ++++ mg/dL [facility] Interpretation and review of laboratory results Normal [facility] Ketones, UA Positive Negative - 160(16) ++++ mg/dL [facility] Leukocytes, UA Negative Negative - 500+++ Sadi/mcL [facility] Nitrite, UA Negative Negative - Positive [facility] pH, UA 6.5 5 - 9 [facility] Protein, UA Negative Negative - 1999(20) ++++ mg/dL [facility] Spec Grav, UA 1.025 1 - 1.03 [facility] Urobilinogen, UA 0.2 0.2 - 12 mg/dL [facility] C-Reactive Proteinon 022 CRP [Mass/Vol] mg/L 0 - 5 mg/L [facility] CBC with Auto Differentialon 12-16-2021 Absolute Eos # 0.09 [facility] Absolute Immature Granulocyte 0.04 [facility] Absolute Lymph # 2.98 [facility] Absolute [place] # 0.51 [facility] RS [facility] Basophils (Bld) [#/Vol] 0.04 10*3/uL [facility] Basophils/100 WBC (Bld) 0 % 0 - 2 % [facility] Eosinophils/100 WBC (Bld) 1 % 1 - 4 % [facility] Hematocrit (Bld) [Volume fraction] 39.6 % 36.3 - 47.1 % [facility] Hemoglobin (Bld) [Mass/Vol] 13.1 g/dL 11.9 - 15.1 g/dL [facility] Immature granulocytes/100 WBC (Bld) 0 % 0 [facility] Lymphocytes/100 WBC (Bld) 33 % 24 - 43 % [facility] MCH (RBC) [Entitic mass] 28.2 pg 25.2 - 33.5 pg [facility] MCHC (RBC) [Mass/Vol] 33.1 g/dL 28.4 - 34.8 g/dL [facility] MCV (RBC) [Entitic vol] 85.3 fL 82.6 - 102.9 fL [facility] Monocytes/100 WBC (Bld) 6 % 3 - 12 % [facility] NRBC Automated 0.0 0.0 per 100 WBC [facility] Platelet distribution width (Bld) [Ratio] 12.0 % 11.8 - 14.4 % [facility] Platelet mean volume (Bld) [Entitic vol] 11.1 fL 8.1 - 13.5 fL [facility] Platelets (Bld) [#/Vol] 214 10*3/uL [facility] RBC (Bld) [#/Vol] 4.64 10*6/uL 3.95 - 5.1 1 m/uL [facility] Segmented neutrophils/100 WBC (Bld) 60 % 36 - 65 % [facility] Segs Absolute 5.49 [facility] WBC (Bld) [#/Vol] 9.2 10*3/uL [facility] Rheumatoid Factoron 12-17-19 22 Rheumatoid Factor <10 NINF [facility] Sedimentation Rateon 022 Sed Rate 5 [facility] Uric Acidon 12-16-2021 Urate [Mass/Vol] 4.2 mg/dL 2.4 - 5.7 mg/dL [facility] [employer] [facility] [employer] Basic Metabolic Panel w/ Ref yossi to MGOrdered By: Donny Hatfield on 10-15-2020 Anion gap [Moles/Vol] 13 mmol/L 9 - 17 mmol/L [employer] Phone: Calcium [Mass/Vol] 9.6 mg/dL 8.6 - 10. 4 mg/dL [employer] Phone: Chloride [Moles/Vol] 105 mmol/L 98 - 10 7 mmol/L [employer] Phone: CO2 [Moles/Vol] 22 mmol/L 20 - 31 mmol/L [employer] Phone: Creatinine [Mass/Vol] 0.62 mg/dL 0.50 - 0.90 mg/dL [employer] Phone: GFR >60 >60 mL/min [employer] Call Phone: GFR Non- >60 >60 mL/min [employer] Phone: Glucose [Mass/Vol] 110 mg/dL High 70 - 99 mg/dL [employer] Phone: Interpretation and review of laboratory results Abnormal [employer] Phone: Potassium [Moles/Vol] 3.5 mmol/L Low 3.7 - 5.3 mmol/L [employer] Phone: Sodium [Moles/Vol] 140 mmol/L 135 - 144 mmol/L [employer] Phone: Urea nitrogen (BldV) [Mass/Vol] 12 mg/dL 6 - 20 mg/dL [employer] Phone: Urea nitrogen/Creatinine (Bld) [Mass ratio] 19 [employer] Phone: [employer] Phone: CBC Auto DifferentialOrdered By: Donny Hatfield on 10-15-2020 Absolute Eos # 0.19 [employer] [facility] Work Phone: Absolute Immature Granulocyte 0.06 [employer] Work Phone: Absolute Lymph # 2.50 [employer] [facility] Work Phone: Absolute [place] # 0.75 [employer] [facility] Work Phone: Basophils (Bld) [#/Vol] 0.04 10*3/uL [employer] Work Phone: Basophils/100 WBC (Bld) 0 % 0 - 2 % [employer] Phone: Differential Type NOT REPORTED [employer] Phone: Eosinophils/100 WBC (Bld) 1 % 1 - 4 % [employer] Phone: Hematocrit (Bld) [Volume fraction] 42.1 % 36.3 - 47.1 % [employer] Phone: Hemoglobin.gastrointes tinal spec 1 Ql (Stl) 14.0 g/dL 11.9 - 15.1 g/dL [employer] Phone: Immature granulocytes/100 WBC (Bld) 0 % 0 [employer] Phone: Interpretation and review of laboratory results Abnormal [employer] Phone: Lymphocytes/100 WBC (Bld) 14 % Low 24 - 43 % [employer] Phone: MCH (RBC) [Entitic mass] 28.1 pg 25.2 - 33.5 pg [employer] Phone: MCHC (RBC) [Mass/Vol] 33.3 g/dL 28.4 - 34.8 g/dL [employer] Phone: MCV (RBC) [Entitic vol] 84.4 fL 82.6 - 102.9 fL [employer] Phone: Monocytes/100 WBC (Bld) 4 % 3 - 12 % [employer] Phone: NRBC Automated 0.0 0.0 per 100 WBC [employer] Phone: Platelet distribution width (Bld) [Ratio] 11.9 % 11.8 - 14.4 % [employer] Phone: Platelet Estimate NOT REPORTED [employer] Phone: Platelet mean volume (Bld) [Entitic vol] 10.7 fL 8.1 - 13.5 fL [employer] Phone: Platelets (Bld) [#/Vol] 220 10*3/uL [employer] Phone: RBC (Bld) [#/Vol] 4.99 10*6/uL 3.95 - 5.1 1 m/uL [employer] Phone: RBC (Bld) [#/Vol] NOT REPORTED [employer] Phone: Segmented neutrophils/100 WBC (Bld) 81 % High 36 - 65 % [employer] Phone: Segs Absolute 14.20 [employer] Work Phone: WBC (Bld) [#/Vol] 17.7 10*3/uL [employer] Work Phone: WBC (Bld) [#/Vol] NOT REPORTED [employer] Phone: [employer] Phone: CT ABDOMEN PELVIS W IV CONTR AST Additional Contrast? NoneOrdered By: Donny Hatfield on 10-15-2020 1. Marked hepatic steatosis. 2. Hepatomegaly. 3. Mild colonic diverticulosis without evidence of diverticulitis. [employer] Phone: EXAMINATION: CT OF T HE ABDOMEN [...] subcutaneous soft tissues are unremarkable in appearance. [employer] Work Phone: Jean Marie, [facility] Incoming Radiant Results From [employer] - 10/15/2020 1:48 AM EDT EXAMINATION: CT [...] COMPARISON: None. HISTORY: ORDERING SYSTEM PROVIDED HISTORY: research [facility] pain TECHNOLOGIST PROVIDED HISTORY: abd pain Decision [...] Mild colonic diverticulosis without evidence of diverticulitis. [employer] Phone: [employer] Phone: HCG Qualitative, SerumOrdere d By: Donyn Hatfield on 10-15-2020 hCG Qual Negative NEGATIVE [employer] Phone: Comment on above: Specimens with hCG l evels near the threshold of the test (25 mIU/mL) may give a negative or indeterminate result. In such cases, another test should be performed with a new specimen in 48-72 hours. If early is suspected clinically in this setting, correlation with quantitative serum b-hCG level is suggested. [employer] has confirmed the use of plasma for this test. This has not been cleared or approved by the U.S. Food and Drug Administration. The FDA has determined that such clearance is not necessary. [employer] Phone: Hepatic Function PanelOrdere d By: Donny Hatfield on 10-15-2020 Albumin [Mass/Vol] 4.6 g/dL 3.5 - 5.2 g/dL [employer] Phone: Albumin/Globulin [Mass ratio] 1.6 {ratio} [employer] Phone: ALP (Bld) [Catalytic activity/Vol] 59 U/L 35 - 104 U/L [employer] Phone: ALT [Catalytic activity/Vol] 38 U/L High 5 - 33 U/L [employer] Phone: AST [Catalytic activity/Vol] 24 U/L <32 [employer] Phone: Bilirubin [Mass/Vol] 0.48 mg/dL 0.3 - 1 .2 mg/dL [employer] Phone: Bilirubin, Indirect CANNOT BE CALCULATED 0.00 - 1.00 mg/dL [employer] Phone: Bilirubin.indirect [Mass/Vol] mg/dL <0.31 mg/dL [employer] Phone: Free PSA/Total PSA [Mass fraction] 7.4 g/dL 6.4 - 8.3 g/dL [employer] Phone: Globulin NOT REPORTED 1.5 - 3.8 g/dL [employer] Phone: Interpretation and review of laboratory results Abnormal [employer] Phone: Laboratory - Chemistry and C hemistry - challengeOrdered By: Donny Hatfield on 10-15-2020 GFR/1.73 sq M.predicted MDRD (S/P/Bld) [Vol rate/Area] [employer] Phone: Comment on above: Average GFR for 20-2 9 years old: 116 mL/min/1.73sq m Chronic Kidney Disease: <60 mL/min/1.73sq m Kidney failure: <15 mL/min/1.73sq m eGFR calculated using average adult body mass. Additional eGFR calculator available at: http://www.[employer]/multiple_crcl_2012.htm Stage 1: Some kidney damage normal GFR Stage 2: Mild kidney damage GFR 60-89 Stage 3: Moderate kidney damage GFR 30-59 Stage 4: Severe kidney damage GFR 15-29 Stage 5: Severe kidney damage GFR <15 ESRD - chronic treatment by dialysis or transplant Lactic Acid, PlasmaOrdered B y: Donny Hatfield on 10-15-2020 Lactate [Moles/Vol] 1.1 mmol/L 0.5 - 2. 2 mmol/L [employer] Work Phone: Lactic Acid, Whole Blood NOT REPORTED 0.7 - 2.1 mmol/L [employer] Phone: [employer] Phone: LipaseOrdered By: Cuco on 10-15-2020 Lipase [Catalytic activity/Vol] 27 U/L 13 - 60 U/L [employer] Phone: MagnesiumOrdered By: Donny Hatfield on 10-15-2020 Magnesium [Mass/Vol] 1.8 mg/dL 1.6 - 2 .6 mg/dL [employer] Phone: [employer] Phone: Microscopic UrinalysisOrdere d By: Donny Hatfield on 10-15-2020 - [employer] Work Phone: Amorphous, UA NOT REPORTED None [employer] [facility] Work Phone: Bacteria, UA 1+ Abnormal None [employer] Work Phone: Casts UA NOT REPORTED /LPF [employer] Work Phone: Crystals, UA NOT REPORTED None /HPF [employer] [facility] Work Phone: Epithelial Cells UA 2 TO 5 [employer] Work Phone: Interpretation and review of laboratory results Abnormal [employer] Work Phone: Mucus, UA 1+ Abnormal None [employer] Phone: Other Observations UA NOT REPORTED NOT REQ. [facility] Work Phone: RBC, UA 2 TO 5 [facility] Work Phone: Renal Epithelial, UA NOT REPORTED 0 /HPF [facility] Work Phone: Trichomonas, UA NOT REPORTED None [facility] Work Phone: WBC, UA 0 TO 2 [facility] Work Phone: Yeast, UA NOT REPORTED None [facility] Work Phone: [facility] Work Phone: No Panel InformationOrdered By: Donny Hatfield on 10-15-2020 [facility] Work Phone: Urinalysis Reflex to Culture Ordered By: Donny Hatfield on 10-15-2020 Bilirubin Urine Negative NEGATIVE [facility] Work Phone: Color, UA YELLOW YELLOW [facility] Work Phone: Glucose, Ur Negative NEGATIVE [facility] Work Phone: Interpretation and review of laboratory results Abnormal [facility] Work Phone: Ketones Ql (U) Negative NEGATIVE [facility] Work Phone: Leukocyte esterase Test strip Ql (U) Negative NEGATIVE [facility] Work Phone: Nitrite, Urine Negative NEGATIVE [facility] Work Phone: pH, UA 5.0 [facility] Work Phone: Protein, UA Negative NEGATIVE [facility] Work Phone: Specific [place], UA 1.010 [facility] Work Phone: Turbidity UA CLEAR CLEAR [facility] Work Phone: Urinalysis Comments NOT REPORTED [facility] Work Phone: Urine Hgb 2+ Abnormal NEGATIVE [employer] Work Phone: Urobilinogen, Urine Normal Normal [employer] Phone: [employer] Work Phone: Comp Metabolic Profon 2020 (cont.) Normal [facility] Comment on above: Result Comment: Aver age GFR for 20-29 years old: 116 mL/min/1.73sq m Chronic Kidney Disease: <60 mL/min/1.73sq m Kidney failure: <15 mL/min/1.73sq m eGFR calculated using average adult body mass. Additional eGFR calculator available at: http://www.[employer]/multiple_crcl_2011.htm Performed By: #### L IPRF, CDP, CP, TSHX #### [employer] [address] [place] [id number] [employer] Real Estate Agent: Chato Aguirre MD Albumin [Mass/Vol] 4.3 g/dL Normal 3.5-5.2 [facility] Comment on above: Performed By: #### L IPRF, CDP, CP, TSHX #### [employer] [address] [place] [address] [employer] Agent: Chato Aguirre MD Albumin/Glob Ratio 1.3 Normal 1.0-2.5 [facility] Comment on above: Performed By: #### L IPRF, CDP, CP, TSHX #### [employer] [address] [place] [address] [employer] Agent: Chato Aguirre MD Alkaline Phos 49 U/L Normal 35-104 [facility] Comment on above: Performed By: #### L IPRF, CDP, CP, TSHX #### [employer] [address] [place] [address] [employer] Agent: Chato Aguirre MD ALT [Catalytic activity/Vol] 36 U/L High 5-33 [facility] Comment on above: Performed By: #### L IPRF, CDP, CP, TSHX #### [facility] [address] [place] [address] [employer] Agent: Chato Aguirre MD Anion gap [Moles/Vol] 11 mmol/L Normal 9-17 [facility] Comment on above: Performed By: #### L IPRF, CDP, CP, TSHX #### [facility] [address] [place] [address] [employer] Agent: Chato Aguirre MD AST [Catalytic activity/Vol] 27 U/L Normal <32 [facility] Comment on above: Performed By: #### L IPRF, CDP, CP, TSHX #### [facility] [address] [place] [address] [employer] Agent: Chato Aguirre MD Bilirubin [Mass/Vol] 0.34 mg/dL Normal 0.3-1.2 [facility] Comment on above: Performed By: #### L IPRF, CDP, CP, TSHX #### [facility] [address] [place] [address] [employer] Agent: Chato Aguirre MD Calcium [Mass/Vol] 9.5 mg/dL Normal 8.6-10.4 [facility] Comment on above: Performed By: #### L IPRF, CDP, CP, TSHX #### [facility] [address] [place] [address] [employer] Agent: Chato Aguirre MD Chloride [Moles/Vol] 102 mmol/L Normal 98-107 [facility] Comment on above: Performed By: #### L IPRF, CDP, CP, TSHX #### [facility] [address] [place] [address] [employer] Agent: Chato Aguirre MD CO2 [Moles/Vol] 22 mmol/L Normal 20-31 [facility] Comment on above: Performed By: #### L IPRF, CDP, CP, TSHX #### [facility] [address] [place] [address] [employer] Agent: Chato Aguirre MD Creatinine [Mass/Vol] 0.46 mg/dL Low 0.50-0.90 [facility] Comment on above: Performed By: #### L IPRF, CDP, CP, TSHX #### [facility] [address] [place] [address] [employer] Agent: Chato Aguirre MD GFR, Amer >60 Normal >60 [facility] Comment on above: Performed By: #### L IPRF, CDP, CP, TSHX #### [facility] [address] [place] [address] [employer] Agent: Chato Aguirre MD GFR,non Amer >60 Normal >60 [facility] Comment on above: Performed By: #### L IPRF, CDP, CP, TSHX #### [facility] [address] [place] [address] [employer] Agent: Chato Aguirre MD Glucose [Mass/Vol] 92 mg/dL Normal 70-99 [facility] Comment on above: Performed By: #### L IPRF, CDP, CP, TSHX #### [facility] [address] [place] [address] [employer] Agent: Chato Aguirre MD Potassium [Moles/Vol] 4.2 mmol/L Normal 3.7-5.3 [facility] Comment on above: Performed By: #### L IPRF, CDP, CP, TSHX #### [facility] [address] [place] [address] [id number] Industrial [employer] Agent: Chato Aguirre MD Protein [Mass/Vol] 7.5 g/dL Normal 6.4-8.3 [facility] Comment on above: Performed By: #### L IPRF, CDP, CP, TSHX #### [facility] [address] [place] [address]6057 [employer] Agent: Chato Aguirre MD Sodium [Moles/Vol] 135 mmol/L Normal 135-144 [facility] Comment on above: Performed By: #### L IPRF, CDP, CP, TSHX #### [facility] [address] [place] [address] [employer] Agent: Chato Aguirre MD Urea nitrogen [Mass/Vol] 11 mg/dL Normal 6-20 [facility] Comment on above: Performed By: #### L IPRF, CDP, CP, TSHX #### [facility] [address] [place] [address] 74082 [employer] Agent: Chato Aguirre MD Lipid Prof, Fastingon 2020 Cholesterol [Mass/Vol] 186 mg/dL Normal <200 [facility] Comment on above: Result Comment: Cholesterol Guidelines: <200 Desirable 200-240 Borderline >240 Undesirable Performed By: #### L IPRF, CDP, CP, TSHX #### [facility] [address] [place] [address] 22384 [employer] Agent: Chato Aguirre MD Cholesterol in HDL [Mass/Vol] 49 mg/dL Normal >40 [facility] Comment on above: Result Comment: HDL Guidelines: <40 Undesirable 40-59 Borderline >59 Desirable Performed By: #### L IPRF, CDP, CP, TSHX #### [facility] [address] [place] [address] 67969 [employer] Agent: Chato Aguirre MD Cholesterol in LDL [Mass/Vol] 102 mg/dL Normal 0-130 [facility] Comment on above: Result Comment: LDL Guidelines: <100 Desirable 100-129 Near to/above Desirable 130-159 Borderline >159 Undesirable Direct (measured) LDL and calculated LDL are not interchangeable tests. Performed By: #### L IPRF, CDP, CP, TSHX #### [facility] [address] [place] [address] [phone] [employer] Agent: Chato Aguirre MD Cholesterol.total/Chol esterol in HDL [Mass ratio] 3.8 {ratio} Normal <5 [facility] Comment on above: Performed By: #### L IPRF, CDP, CP, TSHX #### [facility] [address] [place] [address] [phone] [employer] Agent: Chato Aguirre MD Triglyceride,Fasting 173 mg/dL High <150 [facility] Comment on above: Result Comment: Triglyceride Guidelines: <150 Desirable 150-199 Borderline 200-499 High >499 Very high Based on AHA Guidelines for fasting triglyceride, February 2012. Performed By: #### L IPRF, CDP, CP, TSHX #### [facility] [address] [place] [address] [phone] [employer] Agent: Chato Aguirre MD TSH w/reflex to FT4on 2020 TSH Qn 3.38 m[IU]/L Normal 0.30-5.00 [facility] Comment on above: Performed By: #### L IPRF, CDP, CP, TSHX #### [facility] [address] [place] [address] [phone] [employer] Agent: Chato Aguirre MD CBC Auto DifferentialOrdered By: Miguel Holley on 09-23-2020 Absolute Eos # 0.14 [employer] [facility] Work Phone: Absolute Immature Granulocyte <0.03 [employer] Work Phone: Absolute Lymph # 2.71 [employer] [facility] Work Phone: Absolute Providence # 0.48 [employer] [facility] Work Phone: Basophils (Bld) [#/Vol] 0.05 10*3/uL [employer] Work Phone: Basophils/100 WBC (Bld) 1 % 0 - 2 % [employer] Work Phone: Differential Type NOT REPORTED [facility] Phone: Eosinophils/100 WBC (Bld) 2 % 1 - 4 % [employer] Phone: Hematocrit (Bld) [Volume fraction] 42.9 % 36.3 - 47.1 % [employer] Phone: Hemoglobin.gastrointes tinal spec 1 Ql (Stl) 13.5 g/dL 11.9 - 15.1 g/dL [employer] Phone: Immature granulocytes/100 WBC (Bld) 0 % 0 [employer] Phone: Lymphocytes/100 WBC (Bld) 30 % 24 - 43 % [employer] Phone: MCH (RBC) [Entitic mass] 27.6 pg 25.2 - 33.5 pg [employer] Phone: MCHC (RBC) [Mass/Vol] 31.5 g/dL 28.4 - 34.8 g/dL [employer] Phone: MCV (RBC) [Entitic vol] 87.6 fL 82.6 - 102.9 fL [employer] Phone: Monocytes/100 WBC (Bld) 5 % 3 - 12 % [employer] Phone: NRBC Automated 0.0 0.0 per 100 WBC [employer] Phone: Platelet distribution width (Bld) [Ratio] 12.4 % 11.8 - 14.4 % [employer] Phone: Platelet Estimate NOT REPORTED [employer] Phone: Platelet mean volume (Bld) [Entitic vol] 11.6 fL 8.1 - 13.5 fL [employer] Phone: Platelets (Bld) [#/Vol] 246 10*3/uL [employer] Phone: RBC (Bld) [#/Vol] 4.90 10*6/uL 3.95 - 5.1 1 m/uL [employer] Phone: RBC (Bld) [#/Vol] NOT REPORTED [employer] Phone: Segmented neutrophils/100 WBC (Bld) 62 % 36 - 65 % [employer] Work Phone: Segs Absolute 5.79 [employer] Work Phone: WBC (Bld) [#/Vol] 9.2 10*3/uL [employer] Work Phone: WBC (Bld) [#/Vol] NOT REPORTED [employer] Phone: CBC with Diffon 09-23-2020 Abs. Basophil 0.05 k/uL Normal 0.00-0.20 [facility] Comment on above: Performed By: #### L IPRF, CDP, CP, TSHX #### [facility] [address] [place] [address] [employer] Agent: Chato Aguirre MD Abs.Imm.Granulocyte <0.03 Normal 0.00-0.30 [facility] Comment on above: Performed By: #### L IPRF, CDP, CP, TSHX #### [employer] [address] [place] [address] [employer] Agent: Chato Aguirre MD Abs.Neutrophil (Seg) 5.79 k/uL Normal 1.50-8.10 [facility] Comment on above: Performed By: #### L IPRF, CDP, CP, TSHX #### [employer] [address] [place] [address] [employer] Agent: Chato Aguirre MD Basophils/100 WBC (Bld) 1 % Normal 0-2 [facility] Comment on above: Performed By: #### L IPRF, CDP, CP, TSHX #### [employer] [address] [place] [address] [employer] Agent: Chato Aguirre MD Eosinophils (Bld) [#/Vol] 0.14 10*3/uL Normal 0.00-0.44 [facility] Comment on above: Performed By: #### L IPRF, CDP, CP, TSHX #### [facility] [address] [place] [address] 56010 [employer] Agent: Chato Aguirre MD Eosinophils/100 WBC (Bld) 2 % Normal 1-4 [facility] Comment on above: Performed By: #### L IPRF, CDP, CP, TSHX #### [facility] [address] [place] [address] [phone] [employer] Agent: Chato Aguirre MD Erythrocyte distribution width (RBC) [Ratio] 12.4 % Normal 11.8-14.4 [facility] Comment on above: Performed By: #### L IPRF, CDP, CP, TSHX #### [address] [address] [employer] Agent: Chato Aguirre MD Hematocrit (Bld) [Volume fraction] 42.9 % Normal 36.3-47.1 [facility] Comment on above: Performed By: #### L IPRF, CDP, CP, TSHX #### [facility] [address] [place] [address] 53551 [employer] Agent: Chato Aguirre MD Hemoglobin (Bld) [Mass/Vol] 13.5 g/dL Normal 11.9-15.1 [facility] Comment on above: Performed By: #### L IPRF, CDP, CP, TSHX #### [facility] [address] [place] [address] 05267 [employer] Agent: Chato Aguirre MD Immature granulocytes/100 WBC (Bld) 0 % Normal 0 [facility] Comment on above: Performed By: #### L IPRF, CDP, CP, TSHX #### [facility] [address] [place] [address] 72547 [employer] Agent: Chato Aguirre MD Lymphocytes (Bld) [#/Vol] 2.71 10*3/uL Normal 1.10-3.70 [facility] Comment on above: Performed By: #### L IPRF, CDP, CP, TSHX #### [address] [address] [employer] Agent: Chato Aguirre MD Lymphocytes/100 WBC (Bld) 30 % Normal 24-43 [facility] Comment on above: Performed By: #### L IPRF, CDP, CP, TSHX #### [place] [address] [employer] Agent: Chato Aguirre MD MCH (RBC) [Entitic mass] 27.6 pg Normal 25.2-33.5 [facility] Comment on above: Performed By: #### L IPRF, CDP, CP, TSHX #### [place] [address] [employer] Agent: Chato Aguirre MD MCHC (RBC) [Mass/Vol] 31.5 g/dL Normal 28.4-34.8 [facility] Comment on above: Performed By: #### L IPRF, CDP, CP, TSHX #### [place] [address] [employer] Agent: Chato Aguirre MD MCV (RBC) [Entitic vol] 87.6 fL Normal 82.6-102.9 [facility] Comment on above: Performed By: #### L IPRF, CDP, CP, TSHX #### [place] [address] [employer] Agent: Chato Aguirre MD Monocytes (Bld) [#/Vol] 0.48 10*3/uL Normal 0.10-1.20 [facility] Comment on above: Performed By: #### L IPRF, CDP, CP, TSHX #### [address] [address] [employer] Agent: Chato Aguirre MD Monocytes/100 WBC (Bld) 5 % Normal 3-12 [facility] Comment on above: Performed By: #### L IPRF, CDP, CP, TSHX #### [address] [address] [employer] Agent: Chato Aguirre MD Neutrophil (Seg) 62 % Normal 36-65 [facility] Comment on above: Performed By: #### L IPRF, CDP, CP, TSHX #### [facility] [address] [place] [address] [employer] Agent: Chato Aguirre MD NRBC Automated 0.0 per 100 WBC Normal 0.0 [facility] Comment on above: Performed By: #### L IPRF, CDP, CP, TSHX #### [address] [address] [employer] Agent: Chato Aguirre MD Platelet mean volume (Bld) [Entitic vol] 11.6 fL Normal 8.1-13.5 [facility] Comment on above: Performed By: #### L IPRF, CDP, CP, TSHX #### [facility] [address] [place] [address] [employer] Agent: Chato Aguirre MD Platelets (Bld) [#/Vol] 246 10*3/uL Normal 138-453 [facility] Comment on above: Performed By: #### L IPRF, CDP, CP, TSHX #### [facility] [address] [place] [address]10 [employer] Agent: Chato Aguirre MD RBC (Bld) [#/Vol] 4.90 10*6/uL Normal 3.95-5.11 [facility] Comment on above: Performed By: #### L IPRF, CDP, CP, TSHX #### [facility] [address] [place] [address] 34110 [employer] Agent: Chato Aguirre MD WBC (Bld) [#/Vol] 9.2 10*3/uL Normal 3.5-11.3 [facility] Comment on above: Performed By: #### L IPRF, CDP, CP, TSHX #### [address] [address] [employer] Agent: Chato Aguirre MD Auto Diff Performed NOT REPORTED Normal [facility] Comment on above: Performed By: #### L IPRF, CDP, CP, TSHX #### [address] [address] [employer] Agent: Chato Aguirre MD Platelet Estimate NOT REPORTED Normal [facility] Comment on above: Performed By: #### L IPRF, CDP, CP, TSHX #### [address] [address] [employer] Agent: Chato Aguirre MD RBC morphology finding Nom (Bld) NOT REPORTED Normal [facility] Comment on above: Performed By: #### L IPRF, CDP, CP, TSHX #### [facility] [address] [place] [address] [employer] Agent: Chato Aguirre MD WBC Morphology NOT REPORTED Normal [facility] Comment on above: Performed By: #### L IPRF, CDP, CP, TSHX #### [facility] [address] [place] [address]86 [employer] Agent: Chato Aguirre MD Comp Metabolic Profon 2020 BUN/CRE Ratio NOT REPORTED Normal 02-17 [facility] Comment on above: Performed By: #### L IPRF, CDP, CP, TSHX #### [facility] [address] [place] [address] [employer] Agent: Chato Aguirre MD Staging: NOT REPORTED Normal [facility] Comment on above: Performed By: #### L IPRF, CDP, CP, TSHX #### [facility] [address] [phone] [employer] Agent: Chato Aguirre MD Comprehensive Metabolic Pane lOrdered By: Miguel Holley on 09-23-2020 Albumin [Mass/Vol] 4.3 g/dL 3.5 - 5.2 g/dL [employer] Phone: Albumin/Globulin [Mass ratio] 1.3 {ratio} [employer] Phone: ALP (Bld) [Catalytic activity/Vol] 49 U/L 35 - 104 U/L [employer] Phone: ALT [Catalytic activity/Vol] 36 U/L High 5 - 33 U/L [employer] Phone: Anion gap [Moles/Vol] 11 mmol/L 9 - 17 mmol/L [employer] Phone: AST [Catalytic activity/Vol] 27 U/L <32 [employer] Phone: Bilirubin [Mass/Vol] 0.34 mg/dL 0.3 - 1 .2 mg/dL [employer] Phone: Calcium [Mass/Vol] 9.5 mg/dL 8.6 - 10. 4 mg/dL [employer] Phone: Chloride [Moles/Vol] 102 mmol/L 98 - 10 7 mmol/L [employer] Phone: CO2 [Moles/Vol] 22 mmol/L 20 - 31 mmol/L [employer] Phone: Creatinine [Mass/Vol] 0.46 mg/dL Low 0.50 - 0.90 mg/dL [employer] Phone: Free PSA/Total PSA [Mass fraction] 7.5 g/dL 6.4 - 8.3 g/dL [employer] Phone: GFR >60 >60 mL/min [employer] Call Phone: GFR Non- >60 >60 mL/min [employer] Phone: GFR/1.73 sq M.predicted MDRD (S/P/Bld) [Vol rate/Area] [employer] Phone: Comment on above: Average GFR for 20-2 9 years old: 116 mL/min/1.73sq m Chronic Kidney Disease: <60 mL/min/1.73sq m Kidney failure: <15 mL/min/1.73sq m eGFR calculated using average adult body mass. Additional eGFR calculator available at: http://www.[employer]/[facility]_crcl_2012.htm GFR/1.73 sq M.predicted MDRD (S/P/Bld) [Vol rate/Area] NOT REPORTED [employer] Phone: Glucose [Mass/Vol] 92 mg/dL 70 - 99 mg/dL [employer] Phone: Potassium [Moles/Vol] 4.2 mmol/L 3.7 - 5.3 mmol/L [employer] Phone: Sodium [Moles/Vol] 135 mmol/L 135 - 144 mmol/L [employer] Phone: Urea nitrogen (BldV) [Mass/Vol] 11 mg/dL 6 - 20 mg/dL [employer] Phone: Urea nitrogen/Creatinine (Bld) [Mass ratio] NOT REPORTED [employer] Phone: Laboratory - Chemistry and C hemistry - challengeOrdered By: Miguel Holley on 09-23-2020 Albumin [Mass/Vol] 4.3 g/dL (3.5-5.2 ) [id number] [facility] Work Phone: Comment on above: Note: Responsible Ob gravity meter observer: CEEV [employer] ([id number]) ALT [Catalytic activity/Vol] 36 U/L High (5-33 ) [facility] Work Phone: Comment on above: Note: Responsible Ob gravity meter observer: CEEV [employer] (3003) Anion gap [Moles/Vol] 11 mmol/L (9-17 ) [facility] Work Phone: Comment on above: Note: Responsible Ob gravity meter observer: CEEV [employer] (3003) AST [Catalytic activity/Vol] 27 U/L (<32 ) [facility] Work Phone: Comment on above: Note: Responsible Ob gravity meter observer: CEEV [employer] (3003) Bilirubin [Mass/Vol] 0.34 mg/dL (0.3-1.2 ) [facility] Work Phone: Comment on above: Note: Responsible Ob gravity meter observer: [employer]V [employer] (3003) Calcium [Mass/Vol] 9.5 mg/dL (8.6-10.4 ) [facility] Work Phone: Comment on above: Note: Responsible Ob gravity meter observer: [employer] (3003) Chloride [Moles/Vol] 102 mmol/L (98-107 ) [facility] Work Phone: Comment on above: Note: Responsible Ob gravity meter observer: [employer] (3003) Cholesterol [Mass/Vol] 186 mg/dL (<200 ) [facility] Work Phone: Comment on above: Note: Cholesterol Gu idelines:<200 [id number] Borderline>240 UndesirableResponsible Observer: CEEV [employer] (3003) Cholesterol.total/Chol esterol in HDL [Mass ratio] 3.8 {ratio} (<5 ) [facility] Work Phone: Comment on above: Note: Responsible Ob gravity meter observer: CEEV [employer] (3003) CO2 [Moles/Vol] 22 mmol/L (20-31 ) [facility] Work Phone: Comment on above: Note: Responsible Ob gravity meter observer: [employer]EEV [employer] (3003) Creatinine [Mass/Vol] 0.46 mg/dL Low (0.50- 0.90 ) [facility] Work Phone: Comment on above: Note: Responsible Ob gravity meter observer: CEEV [employer] (3003) Glucose [Mass/Vol] 92 mg/dL (70-99 ) [facility] Work Phone: Comment on above: Note: Responsible Ob gravity meter observer: CEEV [employer] (3003) Magnesium [Mass/Vol] 49 mg/dL (>40 ) [facility] Work Phone: Comment on above: Note: HDL Guidelines :<40 [id number] Borderline>59 DesirableResponsible Observer: ABBIEEV AUTOFILE (3003) Magnesium [Mass/Vol] 102 mg/dL (0-130 ) [facility] Work Phone: Comment on above: Note: LDL Guidelines :<100 [id number] Near to/above [id number] Borderline>159 UndesirableDirect (measured) LDL and calculated LDL are not interchangeable tests.Responsible Observer: CEEV [employer] (3003) Magnesium [Mass/Vol] 173 mg/dL High (<150 ) [facility] Work Phone: Comment on above: Note: Triglyceride G uidelines:<150 [id number] High>499 Very highBased on AHA Guidelines for fasting triglyceride, February 2012.Responsible Observer: CEEV [employer] (3003) Potassium [Moles/Vol] 4.2 mmol/L (3.7-5.3 ) [facility] Work Phone: Comment on above: Note: Responsible Ob gravity meter observer: CEEV [employer] (3003) Protein [Mass/Vol] 7.5 g/dL (6.4-8.3 ) [facility] Work Phone: Comment on above: Note: Responsible Ob gravity meter observer: CEEV [employer] (3003) Sodium [Moles/Vol] 135 mmol/L (135-144 ) [facility] Work Phone: Comment on above: Note: Responsible Ob gravity meter observer: CEEV [employer] (3003) Urea nitrogen [Mass/Vol] 11 mg/dL (6-20 ) [facility] Work Phone: Comment on above: Note: Responsible Ob gravity meter observer: CEEV [employer] (3003) Laboratory - Hematology and Cell countsOrdered By: Miguel Holley on 09-23-2020 Basophils/100 WBC (Bld) 1 % (0-2 ) [facility] Work Phone: Comment on above: Note: Responsible Ob gravity meter observer: XNV [employer] (3018) Eosinophils (Bld) [#/Vol] 0.14 10*3/uL (0.00-0.44 ) [facility] Work Phone: Comment on above: Note: Responsible Ob gravity meter observer: XNV [employer] (3018) Eosinophils/100 WBC (Bld) 2 % (1-4 ) [facility] Work Phone: Comment on above: Note: Responsible Ob gravity meter observer: XNV [employer] (3018) Erythrocyte distribution width (RBC) [Ratio] 12.4 % (11.8-14.4 ) [facility] Work Phone: Comment on above: Note: Responsible Ob gravity meter observer: XNV AUT[employer]FILE (3018) Hematocrit (Bld) [Volume fraction] 42.9 % (36.3-47.1 ) [facility] Work Phone: Comment on above: Note: Responsible Ob gravity meter observer: XNV AUTOFILE (3018) Hemoglobin (Bld) [Mass/Vol] 13.5 g/dL (11.9-15.1 ) [facility] Work Phone: Comment on above: Note: Responsible Ob gravity meter observer: XNV [employer]FILE (3018) Immature granulocytes/100 WBC (Bld) 0 % (0 ) [facility] Work Phone: Comment on above: Note: Responsible Ob gravity meter observer: XNV [employer] (3018) Lymphocytes (Bld) [#/Vol] 2.71 10*3/uL (1.10-3.70 ) [facility] Work Phone: Comment on above: Note: Responsible Ob gravity meter observer: XNV [employer]FILE (3018) Lymphocytes/100 WBC (Bld) 30 % (24-43 ) [facility] Work Phone: Comment on above: Note: Responsible Ob gravity meter observer: XNV [employer] (3018) MCH (RBC) [Entitic mass] 27.6 pg (25.2-33.5 ) [facility] Work Phone: Comment on above: Note: Responsible Ob gravity meter observer: XNV [employer]FILE (3018) MCHC (RBC) [Mass/Vol] 31.5 g/dL (28.4- 34.8 ) [facility] Work Phone: Comment on above: Note: Responsible Ob gravity meter observer: XNV AUT[employer]FILE (3018) MCV (RBC) [Entitic vol] 87.6 fL (82.6-102.9 ) [facility] Work Phone: Comment on above: Note: Responsible Ob gravity meter observer: XNV AUTOFILE (3018) Monocytes (Bld) [#/Vol] 0.48 10*3/uL (0.10-1.20 ) [facility] Work Phone: Comment on above: Note: Responsible Ob gravity meter observer: XNV [employer]FILE (3018) Monocytes/100 WBC (Bld) 5 % (3-12 ) [facility] Work Phone: Comment on above: Note: Responsible Ob gravity meter observer: XNV [employer]FILE (3018) Platelet mean volume (Bld) [Entitic vol] 11.6 fL (8.1-13.5 ) [facility] Work Phone: Comment on above: Note: Responsible Ob gravity meter observer: XNV [employer]FILE (3018) Platelets (Bld) [#/Vol] 246 10*3/uL (138-453 ) [facility] Work Phone: Comment on above: Note: Responsible Ob gravity meter observer: XNV [employer]FILE (301) RBC (Bld) [#/Vol] 4.90 10*6/uL (3.95-5.11 ) [facility] Work Phone: Comment on above: Note: Responsible Ob gravity meter observer: XNV [employer] (3017) RBC morphology finding Nom (Bld) NOT REPORTED [facility] Work Phone: Segmented neutrophils/100 WBC (Bld) 62 % (36-65 ) [facility] Work Phone: Comment on above: Note: Responsible Ob gravity meter observer: XNV [employer]FILE (3017) WBC (Bld) [#/Vol] 9.2 10*3/uL (3.5-11.3 ) [facility] Work Phone: Comment on above: Note: Responsible Ob gravity meter observer: XNV [employer] (3017) Lipid Prof, Fastingon 2020 Cholesterol,VLDL NOT REPORTED Normal 06-29 [facility] Comment on above: Performed By: #### L IPRF, CDP, CP, TSHX #### [facility] [address] [place] [address] Industrial Real Estate Agent: Chato Aguirre MD Lipid, FastingOrdered By: Zandra Holley on 09-23-2020 Cholesterol [Mass/Vol] 186 mg/dL <200 [facility] Work Phone: Comment on above: Cholesterol Guidelines: <200 Desirable 200-240 Borderline >240 Undesirable Cholesterol in HDL [Mass/Vol] 49 mg/dL >40 [employer] Phone: Comment on above: HDL Guidelines: <40 Undesirable 40-59 Borderline >59 Desirable Cholesterol in LDL [Mass/Vol] 102 mg/dL 0 - 130 mg/dL [employer] Phone: Comment on above: LDL Guidelines: <100 Desirable 100-129 Near to/above Desirable 130-159 Borderline >159 Undesirable Direct (measured) LDL and calculated LDL are not interchangeable tests. Cholesterol in VLDL [Mass/Vol] NOT REPORTED High 1 - 30 mg/dL [facility] Phone: Cholesterol.total/Chol esterol in HDL [Mass ratio] 3.8 {ratio} <5 [facility] [employer] Phone: Triglyceride, Fasting 173 mg/dL High <150 [facility] [employer] Work Phone: Comment on above: Triglyceride Guidelines: <150 Desirable 150-199 Borderline 200-499 High >499 Very high Based on AHA Guidelines for fasting triglyceride, February 2012. No Panel InformationOrdered By: Miguel Holley on 09-23-2020 Interpretation and review of laboratory results Abnormal [facility] Phone: (cont.) See Note [facility] Work Phone: Comment on above: Note: Average GFR fo r 20-29 years old:116 mL/min/1.73sq mChronic Kidney Disease:<60 mL/min/1.73sq mKidney failure:<15 mL/min/1.73sq meGFR calculated using average adult body mass. Additional eGFR calculatoravailable at:http://www.[employer]/multiple_crcl_2011.htmResponsible Observer: CEEV AUTOFILE (3003) Abs. Basophil 0.05 k/uL (0.00-0.20 ) [facility] Work Phone: Comment on above: Note: Responsible Ob gravity meter observer: XNV AUTOFILE (3018) Abs.Imm.Granulocyte <0.03 k/uL (0.00-0. 30 ) [facility] Work Phone: Comment on above: Note: Responsible Ob gravity meter observer: XNV [employer]FILE (3018) Abs.Neutrophil (Seg) 5.79 k/uL (1.50-8 .10 ) [facility] Work Phone: Comment on above: Note: Responsible Ob gravity meter observer: XNV AUTOFILE (583) Albumin/Glob Ratio 1.3 (1.0-2.5 ) [facility] Work Phone: Comment on above: Note: Responsible Ob gravity meter observer: CEEV [employer]FILE (3003) Alkaline Phos 49 U/L (35-104 ) [facility] Work Phone: Comment on above: Note: Responsible Ob gravity meter observer: CEEV AUT[employer]FILE (3003) Auto Diff Performed NOT REPORTED [facility] Work Phone: BUN/CRE Ratio NOT REPORTED (9-20 ) [facility] Work Phone: Cholesterol,VLDL NOT REPORTED mg/dL (1-30 ) [facility] Work Phone: GFR, Amer >60 mL/min (>60 ) [facility] Work Phone: Comment on above: Note: Responsible Ob gravity meter observer: CEEV AUTOFILE (3003) GFR,non Amer >60 mL/min (>60 ) [facility] Work Phone: Comment on above: Note: Responsible Ob gravity meter observer: CEEV AUTOFILE (3003) NRBC Automated 0.0 per_100_WBC (0.0 ) [facility] Work Phone: Comment on above: Note: Responsible Ob gravity meter observer: XNV AUTOFILE (3018) Platelet Estimate NOT REPORTED [facility] Work Phone: Reported Physicians See Note [facility] Work Phone: Comment on above: Note: Reported Physi cians:Ordering: Cotton, AimeeAttending: Cotton, AimeeReferring: Cotton, Miguel Staging: NOT REPORTED [facility] Work Phone: Thyroid Stim. Horm. 3.38 mIU/L (0.30-5. 00 ) [facility] Work Phone: Comment on above: Note: Responsible Ob gravity meter observer: CEEV AUTOFILE ([id number]) WBC Morphology NOT REPORTED [facility] Work Phone: TSH with ReflexOrdered By: Kamryn Holley on 09-23-2020 TSH Qn 3.38 m[IU]/L [facility] Work Phone: APTTon 04-08-2020 aPTT Coag (Bld) [Time] 25.2 s [place], [place] Comment on above: IV Heparin Therapy Range: 62.0-94.0 Brain Natriuretic Peptideon 04-08-2020 Natriuretic peptide B (Bld) [Mass/Vol] pg/mL <300 pg/mL [place], [place] Comment on above: Pro-BNP results ayse ot be compared to BNP results. Natriuretic peptide B (Bld) [Mass/Vol] Pro-BNP Reference Range: [place], [place] Comment on above: Rule Out: <300 [place] Zone: Age <50 300-450 Age 50-75 300-900 Age >75 300-1800 Usually represents mild to moderate HF but other cardiopulmonary causes cannot be ruled out. Rule In: Age <50 >450 Age 50-75 >900 Age >75 >1800 CBCon 04-08-2020 Erythrocyte distribution width (RBC) [Ratio] 11.9 % 11.8 - 14.4 % [place] Hematocrit (Bld) [Volume fraction] 37.9 % 36.3 - 47.1 % [place] Hemoglobin (Bld) [Mass/Vol] 12.5 g/dL 11.9 - 15.1 g/dL [place] MCH (RBC) [Entitic mass] 27.8 pg 25.2 - 33.5 pg [place] MCHC (RBC) [Mass/Vol] 33.0 g/dL 28.4 - 34.8 g/dL [place] MCV (RBC) [Entitic vol] 84.2 fL 82.6 - 102.9 fL [place] Platelet mean volume (Bld) [Entitic vol] 10.9 fL 8.1 - 13.5 fL [place] Platelets (Bld) [#/Vol] 184 10*3/uL [place] RBC (Bld) [#/Vol] 4.50 10*6/uL 3.95 - 5.1 1 m/uL [place] WBC (Bld) [#/Vol] 7.8 10*3/uL [place] WBC (Bld) [#/Vol] 0.0 10*3/uL 0.0 per 10 0 WBC [place] COVID-19on 04-08-2020 Interpretation and review of laboratory results Abnormal [place] SARS-CoV-2, Rapid DETECTED Abnormal Not Detected [place] Comment on above: Rapid NAAT: The [...] this assay. Fact sheet for Healthcare Providers: https://www.fda.gov/media/737911/download Fact sheet for Patients: https://www.fda.gov/media/204217/download Methodology: Isothermal Nucleic Acid Amplification Results reported to the appropriate Health Department Source .NASOPHARYNGEAL SWAB [place], [place] CT CHEST PULMONARY EMBOLISM W CONTRASTon 04-08-2020 Unremarkable appeara nce of the chest with no evidence of pulmonary embolism and clear lungs. Incidentally noted hepatic fatty infiltration. [place] EXAMINATION: CTA OF THE CHEST 04/08/2020 [...] No significant osseous or soft tissue abnormality. [place], [place] Jean Marie, Mhpn Incoming Radiant Results From [employer] - 04/08/2020 4:12 PM EST EXAMINATION: CTA [...] clear lungs. Incidentally noted hepatic fatty infiltration. [place] Comprehensive Metabolic Pane fermin 04-08-2020 Albumin [Mass/Vol] 4.1 g/dL 3.5 - 5.2 g/dL [place] Albumin/Globulin [Mass ratio] 1.4 {ratio} [place] ALP [Catalytic activity/Vol] 62 U/L 35 - 104 U/L [place] ALT [Catalytic activity/Vol] 19 U/L 5 - 33 U/L [place] Anion gap [Moles/Vol] 10 mmol/L 9 - 17 mmol/L [place] AST [Catalytic activity/Vol] 20 U/L <32 [place] Bilirubin Ql (U) 0.48 mg/dL 0.3 - 1.2 mg/dL [place] Bun/Cre Ratio 23 High [place] Calcium [Mass/Vol] 8.9 mg/dL 8.6 - 10. 4 mg/dL [place] Chloride [Moles/Vol] 102 mmol/L 98 - 10 7 mmol/L [place] CO2 [Moles/Vol] 23 mmol/L 20 - 31 mmol/L [place] Creatinine [Mass/Vol] 0.47 mg/dL Low 0.5 - 0.9 mg/dL [place] GFR >60 >60 mL/min [place] GFR Non- >60 >60 mL/min [place] Glucose [Mass/Vol] 88 mg/dL 70 - 99 mg/dL [place] Interpretation and review of laboratory results Abnormal [place] Potassium [Moles/Vol] 3.7 mmol/L 3.7 - 5.3 mmol/L [place] Protein [Mass/Vol] 7.1 g/dL 6.4 - 8.3 g/dL [place] Sodium [Moles/Vol] 135 mmol/L 135 - 144 mmol/L [place] Urea nitrogen [Mass/Vol] 11 mg/dL 6 - 20 mg/dL [place] Metabolic Panelon 04-08-2020 GFR/1.73 sq M predicted among non-blacks MDRD (S/P/Bld) [Vol rate/Area] [place] Comment on above: Stage 1: Some [...] body mass. Additional eGFR calculator available at: http://www.[employer]/multiple_crcl_2012.htm Otheron 04-08-2020 SARS-CoV-2 [place], [place] , Urineon 0 Beta HCG ( test) Ql (U) Negative NEGATIVE [place] Comment on above: Specimens with hCG l evels near the threshold of the test (25 mIU/mL) may give a negative or indeterminate result. In such cases, another test should be performed with a new specimen in 48-72 hours. If early is suspected clinically in this setting, correlation with quantitative serum b-hCG level is suggested. [employer] has confirmed the use of plasma for this test. This has not been cleared or approved by the U.S. Food and Drug Administration. The FDA has determined that such clearance is not necessary. Protime-INRon 04-08-2020 INR Coag (PPP) [Relative time] 1.0 {INR} [place] Comment on above: Non-therapeutic Range: INR = 0.9-1.2 Therapeutic Range: Moderate Anticoagulant Intensity: INR = 2.0-3.0 High Anticoagulant Intensity: INR = 2.5-3.5 PT Coag (PPP) [Time] 13.2 s [place] Troponinon 04-08-2020 Troponin I.cardiac [Mass/Vol] NOT REPORTED [place] Troponin T.cardiac [Mass/Vol] NOT REPORTED <0.03 ng/mL [place] Troponin, High Sensitivity <6 0 - 14 ng/L [place] Comment on above: High Sensitivity Troponin values cannot be compared with other Troponin methodologies. Patients with high levels of Biotin oral intake (i.e >5mg/day) may have falsely decreased Troponin levels. Samples collected within 8 hours of biotin intake may require additional information for diagnosis. CBC Auto Differentialon -0 Basophils (Bld) [#/Vol] 0.05 10*3/uL [employer] Phone: Basophils/100 WBC (Bld) 1 % 0 - 2 % [employer] Phone: Differential Type NOT REPORTED [employer] Phone: Eosinophils (Bld) [#/Vol] 0.15 10*3/uL [employer] Phone: Eosinophils/100 WBC (Bld) 1 % 1 - 4 % [employer] Phone: Erythrocyte distribution width (RBC) [Ratio] 12.1 % 11.8 - 14.4 % [employer] Phone: Hematocrit (Bld) [Volume fraction] 44.5 % 36.3 - 47.1 % [employer] Phone: Hemoglobin (Bld) [Mass/Vol] 14.0 g/dL 11.9 - 15.1 g/dL [employer] Phone: Immature granulocytes (Bld) [#/Vol] 0 % 0 [employer] Phone: Immature granulocytes (Bld) [#/Vol] 10*3/uL [employer] Phone: Interpretation and review of laboratory results Abnormal [employer] Phone: Lymphocytes (Bld) [#/Vol] 2.83 10*3/uL [employer] Phone: Lymphocytes/100 WBC (Bld) 27 % 24 - 43 % [employer] Phone: MCH (RBC) [Entitic mass] 27.6 pg 25.2 - 33.5 pg [employer] Phone: MCHC (RBC) [Mass/Vol] 31.5 g/dL 28.4 - 34.8 g/dL [employer] Phone: MCV (RBC) [Entitic vol] 87.6 fL 82.6 - 102.9 fL [employer] Phone: Monocytes (Bld) [#/Vol] 0.52 10*3/uL [employer] Phone: Monocytes/100 WBC (Bld) 5 % 3 - 12 % [employer] Phone: Platelet mean volume (Bld) [Entitic vol] 12.0 fL 8.1 - 13.5 fL [employer] Phone: Platelets (Bld) [#/Vol] NOT REPORTED [employer] Work Phone: Platelets (Bld) [#/Vol] 241 10*3/uL [employer] Work Phone: RBC (Bld) [#/Vol] 5.08 10*6/uL 3.95 - 5.1 1 m/uL [employer] Work Phone: RBC morphology finding Nom (Bld) NOT REPORTED [employer] Work Phone: Segmented neutrophils/100 WBC (Bld) 66 % High 36 - 65 % [employer] Work Phone: Segs Absolute 7.04 [employer] Work Phone: WBC (Bld) [#/Vol] 10.6 10*3/uL [employer] Work Phone: WBC (Bld) [#/Vol] 0.0 10*3/uL 0.0 per 10 0 WBC [employer] Work Phone: WBC Morphology NOT REPORTED [facility] Work Phone: [facility]acon 07-06-2019 Cholesterol [Mass/Vol] 198 mg/dL (<200) [facility] Work Phone: Comment on above: Note: Cholesterol Gu idelines:<200 [id number] Borderline>240 UndesirableResponsible Observer: CCEV AUTOFILE ([id number]) Comprehensive Metabolic Pane fermin 07-06-2019 Albumin [Mass/Vol] 4.5 g/dL 3.5 - 5.2 g/dL [employer] Work Phone: Albumin/Globulin [Mass ratio] 1.4 {ratio} [employer] Work Phone: ALP [Catalytic activity/Vol] 62 U/L 35 - 104 U/L [employer] Work Phone: ALT [Catalytic activity/Vol] 39 U/L High 5 - 33 U/L [employer] Work Phone: Anion gap [Moles/Vol] 16 mmol/L 9 - 17 mmol/L [employer] Phone: AST [Catalytic activity/Vol] 32 U/L High <32 [employer] Phone: Bilirubin Ql (U) 0.25 mg/dL Low 0.3 - 1.2 mg/dL [employer] Phone: Bun/Cre Ratio NOT REPORTED [facility] Work Phone: Calcium [Mass/Vol] 9.8 mg/dL 8.6 - 10. 4 mg/dL [employer] Phone: Chloride [Moles/Vol] 103 mmol/L 98 - 10 7 mmol/L [employer] Phone: CO2 [Moles/Vol] 19 mmol/L Low 20 - 31 mmol/L [employer] Phone: Creatinine [Mass/Vol] 0.51 mg/dL 0.5 - 0.9 mg/dL [employer] Phone: GFR >60 >60 mL/min [employer] Call Phone: GFR Non- >60 >60 mL/min [employer] Phone: GFR/1.73 sq M predicted among non-blacks MDRD (S/P/Bld) [Vol rate/Area] [employer] Phone: Comment on above: Average GFR for 20-2 9 years old: 116 mL/min/1.73sq m Chronic Kidney Disease: <60 mL/min/1.73sq m Kidney failure: <15 mL/min/1.73sq m eGFR calculated using average adult body mass. Additional eGFR calculator available at: http://www.[employer]/multiple_crcl_2012.htm GFR/1.73 sq M predicted among non-blacks MDRD (S/P/Bld) [Vol rate/Area] NOT REPORTED [employer] Phone: Glucose [Mass/Vol] 89 mg/dL 70 - 99 mg/dL [employer] Phone: Interpretation and review of laboratory results Abnormal [employer] Phone: Potassium [Moles/Vol] 4.6 mmol/L 3.7 - 5.3 mmol/L [employer] Phone: Protein [Mass/Vol] 7.8 g/dL 6.4 - 8.3 g/dL [employer] Phone: Sodium [Moles/Vol] 138 mmol/L 135 - 144 mmol/L [employer] Phone: Urea nitrogen [Mass/Vol] 14 mg/dL 6 - 20 mg/dL [employer] Phone: Hematologyon 07-06-2019 Basophils/100 WBC (Bld) 1 % (0-2) [employer] [facility] Work Phone: Comment on above: Note: Responsible Ob gravity meter observer: XNV AUTOFILE ([id number]) Eosinophils (Bld) [#/Vol] 0.15 10*3/uL (0.00-0.44) [facility] Work Phone: Comment on above: Note: Responsible Ob gravity meter observer: XNV AUTOFILE ([id number]) Eosinophils/100 WBC (Bld) 1 % (1-4) [facility] Work Phone: Comment on above: Note: Responsible Ob gravity meter observer: XNV AUTOFILE ([id number]) Hematocrit (Bld) [Volume fraction] 44.5 % (36.3-47.1) [facility] Work Phone: Comment on above: Note: Responsible Ob gravity meter observer: XNV AUTOFILE ([id number]) Hemoglobin (Bld) [Mass/Vol] 14.0 g/dL (11.9-15.1) [facility] Work Phone: Comment on above: Note: Responsible Ob gravity meter observer: XNV AUTOFILE ([id number]) Lymphocytes (Bld) [#/Vol] 2.83 10*3/uL (1.10-3.70) [facility] Work Phone: [phone] Comment on above: Note: Responsible Ob gravity meter observer: XNV AUTOFILE ([id number]) Lymphocytes/100 WBC (Bld) 27 % (24-43) [facility] Work Phone: [phone] Comment on above: Note: Responsible Ob gravity meter observer: XNV AUTOFILE ([id number]) MCH (RBC) [Entitic mass] 27.6 pg (25.2-33.5) [facility] Work Phone: [phone] Comment on above: Note: Responsible Ob gravity meter observer: XNV AUTOFILE ([id number]) MCV (RBC) [Entitic vol] 87.6 fL (82.6-102.9 ) [facility] Work Phone: [phone] Comment on above: Note: Responsible Ob gravity meter observer: XNV AUTOFILE ([id number]) Monocytes (Bld) [#/Vol] 0.52 10*3/uL (0.10-1.20) [facility] Work Phone: [phone] Comment on above: Note: Responsible Ob gravity meter observer: XNV AUTOFILE ([id number]) Monocytes/100 WBC (Bld) 5 % (3-12) [facility] Work Phone: [phone] Comment on above: Note: Responsible Ob gravity meter observer: XNV AUTOFILE ([id number]) Platelets (Bld) [#/Vol] NOT REPORTED [facility] Work Phone: [phone] Platelets (Bld) [#/Vol] 241 10*3/uL (138-453) [facility] Work Phone: [phone] Comment on above: Note: Responsible Ob gravity meter observer: XNV AUTOFILE ([id number]) RBC (Bld) [#/Vol] 5.08 10*6/uL (3.95-5.11) [facility] Work Phone: Comment on above: Note: Responsible Ob gravity meter observer: XNV AUTOFILE ([id number]) RBC morphology finding Nom (Bld) NOT REPORTED [facility] Work Phone: WBC (Bld) [#/Vol] 0.0 per_100_WBC (0.0) He [facility] Work Phone: Comment on above: Note: Responsible Ob gravity meter observer: XNV AUTOFILE ([id number]) WBC (Bld) [#/Vol] 10.6 10*3/uL (3.5-11.3) [facility]alt [facility] Work Phone: Comment on above: Note: Responsible Ob gravity meter observer: XNV AUTOFILE (7012) Lipid, Fastingon 07-06-2019 Cholesterol [Mass/Vol] 198 mg/dL <200 Me [facility] Work Phone: Comment on above: Cholesterol Guidelines: <200 Desirable 200-240 Borderline >240 Undesirable Cholesterol in HDL [Mass/Vol] 53 mg/dL >40 [facility]: Comment on above: HDL Guidelines: <40 Undesirable 40-59 Borderline >59 Desirable Cholesterol in LDL [Mass/Vol] 118 mg/dL 0 - 130 mg/dL [facility] Phone: Comment on above: LDL Guidelines: <100 Desirable 100-129 Near to/above Desirable 130-159 Borderline >159 Undesirable Direct (measured) LDL and calculated LDL are not interchangeable tests. Cholesterol in VLDL [Mass/Vol] NOT REPORTED 1 - 30 mg/dL [facility] Phone: Cholesterol.total/Chol esterol in HDL [Mass ratio] 3.7 {ratio} <5 [facility] Phone: Triglyceride, Fasting 135 mg/dL <150 [facility] [employer] Work Phone: Comment on above: Triglyceride Guidelines: <150 Desirable 150-199 Borderline 200-499 High >499 Very high Based on AHA Guidelines for fasting triglyceride, February 2012. Metabolic Panelon 07-06-2019 Albumin [Mass/Vol] 4.5 g/dL (3.5-5.2) [facility] Work Phone: Comment on above: Note: Responsible Ob gravity meter observer: CCEV AUTOFILE ([id number]) ALT [Catalytic activity/Vol] 39 U/L High (5-33) [facility] Work Phone: Comment on above: Note: Responsible Ob gravity meter observer: CCEV AUTOFILE (3002) Anion gap [Moles/Vol] 16 mmol/L (9-17) [facility] Work Phone: Comment on above: Note: Responsible Ob gravity meter observer: CCEV AUTOFILE ([id number]) AST [Catalytic activity/Vol] 32 U/L High (<32) [facility] Work Phone: Comment on above: Note: Responsible Ob gravity meter observer: CCEV AUTOFILE (3002) Bilirubin [Mass/Vol] 0.25 mg/dL Low (0.3-1.2) [facility] Work Phone: Comment on above: Note: Responsible Ob gravity meter observer: CCEV AUTOFILE (3002) Calcium [Mass/Vol] 9.8 mg/dL (8.6-10.4) [facility] Work Phone: Comment on above: Note: Responsible Ob gravity meter observer: CCEV AUTOFILE (3002) Chloride [Moles/Vol] 103 mmol/L (98-107) [facility] Work Phone: Comment on above: Note: Responsible Ob gravity meter observer: CCEV AUTOFILE (3002) CO2 [Moles/Vol] 19 mmol/L Low (20-31) [facility] Work Phone: Comment on above: Note: Responsible Ob gravity meter observer: CCEV AUTOFILE (3002) Creatinine [Mass/Vol] 0.51 mg/dL (0.50-0.90) [facility] Work Phone: Comment on above: Note: Responsible Ob gravity meter observer: CCEV AUTOFILE (3002) Glucose [Mass/Vol] 89 mg/dL (70-99) [facility] Work Phone: Comment on above: Note: Responsible Ob gravity meter observer: CCEV AUTOFILE (3002) Potassium [Moles/Vol] 4.6 mmol/L (3.7-5.3) [facility] Work Phone: Comment on above: Note: Responsible Ob gravity meter observer: CCEV AUTOFILE (3002) Protein [Mass/Vol] 7.8 g/dL (6.4-8.3) [facility] Work Phone: Comment on above: Note: Responsible Ob gravity meter observer: CCEV AUTOFILE (3002) Sodium [Moles/Vol] 138 mmol/L (135-144) [facility] Work Phone: Comment on above: Note: Responsible Ob gravity meter observer: CCEV AUTOFILE (3002) Urea nitrogen [Mass/Vol] 14 mg/dL (6-20) [facility] Work Phone: Comment on above: Note: Responsible Ob gravity meter observer: CCEV AUTOFILE ([id number]) Otheron 07-06-2019 (cont.) See Note [facility] Work Phone: Comment on above: Note: Average GFR fo r 20-29 years old:116 mL/min/1.73sq mChronic Kidney Disease:<60 mL/min/1.73sq mKidney failure:<15 mL/min/1.73sq meGFR calculated using average adult body mass. Additional eGFR calculatoravailable at:http://www.[employer]/multiple_crcl_2012.htmResponsible Observer: CCEV AUTOFILE (3002) Abs. Basophil 0.05 k/uL (0.00-0.20) [facility] Work Phone: Comment on above: Note: Responsible Ob gravity meter observer: XNV AUTOFILE (3018) Abs.Imm.Granulocyte <0.03 k/uL (0.00-0.30) [facility] Work Phone: Comment on above: Note: Responsible Ob gravity meter observer: XNV AUTOFILE ([id number]) Abs.Neutrophil (Seg) 7.04 k/uL (1.50-8.10) [facility] Work Phone: Comment on above: Note: Responsible Ob gravity meter observer: XNV AUTOFILE ([id number]) Albumin/Glob Ratio 1.4 (1.0-2.5) [facility] Work Phone: [phone] Comment on above: Note: Responsible Ob gravity meter observer: CCEV AUTOFILE (3002) Alkaline Phos 62 U/L (35-104) [facility] Work Phone: [phone] Comment on above: Note: Responsible Ob gravity meter observer: CCEV AUTOFILE (3002) Auto Diff Performed NOT REPORTED [facility] Work Phone: [phone] BUN/CRE Ratio NOT REPORTED (9-20) [facility] Work Phone: [phone] Cholesterol,HDL 53 mg/dL (>40) [facility] Work Phone: [phone] Comment on above: Note: HDL Guidelines :<40 [id number] Borderline>59 DesirableResponsible Observer: CCEV AUTOFILE (3002) Cholesterol,LDL 118 mg/dL (0-130) [facility] Work Phone: Comment on above: Note: LDL Guidelines :<100 [id number] Near to/above [id number] Borderline>159 UndesirableDirect (measured) LDL and calculated LDL are not interchangeable tests.Responsible Observer: CCEV AUTOFILE (3002) Cholesterol,VLDL NOT REPORTED mg/dL (-30) [facility] Work Phone: [phone] Cholesterol.total/Chol esterol in HDL [Mass ratio] 3.7 {ratio} (<5) [facility] Work Phone: Comment on above: Note: Responsible Ob gravity meter observer: CCEV AUTOFILE (3002) Erythrocyte distribution width (RBC) [Ratio] 12.1 % (11.8-14.4) [facility] Work Phone: Comment on above: Note: Responsible Ob gravity meter observer: XNV AUTOFILE ([id number]) Free Insulin 34 uIU/mL High (3-19) [facility] Work Phone: Comment on above: Note: Responsible Ob gravity meter observer: LAB ARUP (0603) GFR, Amer >60 mL/min (>60) [facility] Work Phone: [phone] Comment on above: Note: Responsible Ob gravity meter observer: CCEV AUTOFILE (3002) GFR,non Amer >60 mL/min (>60) [facility] Work Phone: [phone] Comment on above: Note: Responsible Ob gravity meter observer: CCEV AUTOFILE (3002) Immature granulocytes (Bld) [#/Vol] 0 % (0) [facility] Work Phone: [phone] Comment on above: Note: Responsible Ob gravity meter observer: XNV AUTOFILE ([id number]) MCHC (RBC) [Mass/Vol] 31.5 g/dL (28.4-34.8) [facility] Work Phone: [phone] Comment on above: Note: Responsible Ob gravity meter observer: XNV AUTOFILE ([id number]) Performing Lab: see note [facility] Work Phone: [phone] Comment on above: Note: [facility] [address] [facility] [address] Note: [facility] [address] [facility] [address] Platelet mean volume (Bld) [Entitic vol] 12.0 fL (8.1-13.5) [facility] Work Phone: [phone] Comment on above: Note: Responsible Ob gravity meter observer: XNV AUTOFILE ([id number]) Reported Physicians See Note [facility] Work Phone: [phone] Comment on above: Note: Reported Physi cians:Ordering: Allyson Floyd AAttending: No FloydthiaReferring: Allyson Floyd Segmented neutrophils/100 WBC (Bld) 66 % High (36-65) [facility] Work Phone: [phone] Comment on above: Note: Responsible Ob gravity meter observer: XNV AUTOFILE (3013) Staging: NOT REPORTED [facility] Work Phone: [phone] Thyroid Stim. Horm. 4.15 mIU/L (0.30-5.00) [facility] Work Phone: Comment on above: Note: Responsible Ob gravity meter observer: CCEV AUTOFILE (3002) Thyroxine, Free 1.21 ng/dL (0.93-1.70) [facility] Work Phone: Comment on above: Note: Responsible Ob gravity meter observer: CCEV AUTOFILE ([id number]) Total Insulin 46 uIU/mL High (3-19) [facility] [...] 6.0. Reference intervalsestablished for fasting specimens.Performed by [employer],[address] [place] [address] [employer], [place] Xiong MD, Lab. DirectorResponsible Observer: LAB KIERAN ([id number]) Triglyceride,Fasting 135 mg/dL (<150) [facility] Work Phone: Comment on above: Note: Triglyceride G uidelines:<150 [id number] Rxezbjksgd400-165 High>499 Very highBased on AHA Guidelines for fasting triglyceride, February 2012.Responsible Observer: CCEV AUTOFILE ([id number]) Triiodothyronine T3 150 ng/dL (80-200) [facility] Work Phone: Comment on above: Note: Responsible Ob gravity meter observer: CEEV AUTOFILE ([id number]) WBC Morphology NOT REPORTED [facility] Work Phone: T3on 07-06-2019 T3, Total 150 ng/dL 80 - 200 ng/dL [facility] [employer] Phone: T4, Freeon 07-06-2019 Thyroxine, Free 1.21 ng/dL 0.93 - 1.7 ng/dL [facility] [employer] Phone: TSH without Reflexon 020 TSH Qn 4.15 m[IU]/L [employer] Work Phone: US NON OB TRANSVAGINALon Satisfactory IUD position. RECOMMENDATIONS: No follow-up imaging is recommended. Reference: US BPRs based on Radiology 2009;256(3):943-54; CT/MR BPRs based on J Am Joanne Radiol 2013;10:675-681. [place] EXAMINATION: PELVIC ULTRASOUND 02/02/2019 TECHNIQUE: Transvaginal [...] Free Fluid: No evidence of free fluid. [place], [place] Jean Marie, pn Incoming Radiant Results From [employer] - 02/02/2019 8:44 AM EDT EXAMINATION: [...] based on J Am Joanne Radiol 2013;10:675-681. [facility] ROBBY PERES 08-21-2018 CNOV Office Visit ([facility]ALK[facility] ) ----- ESTEFANIA NAVARRETE ([id number]) 1995 F Date Time Provider Department 08/21/18 12:00 PM MIGUEL TENA (DIANELYS) [facility]ALK[facility] During your visit today, we recorded the following information about you: Temperature Pulse Respiration Blood pressure 97.6 degrees 99/minute 16/minute 136/81 Weight 109.8 kg Miguel Tena APRN.CNP 08/21/2018 12:46 PM Signed Subjective The history is provided by the patient. No speech and language assistant was used. Cough This is a new [...] is a safe and effective decongestant 3. M[place]in[place] Nasal [place] may offer relief of nasal and head [...] help open respiratory and sinus passages. - [place] Nasal [place] may offer relief of nasal and head [...] worse. [facility]. I appreciate your confidence in choosing the [facility] for your medical care. Miguel Tena APRN.EXTENSION SERVICE SPECIALIST IN CHARGE [facility] [address] [facility] [id number] Referring Provider: SELF [200] Allergies [...] is a safe and effective decongestant 3. M[place]in[place] Nasal [place] may offer relief of nasal and head congestion 4. Mciah's Vapor Rub placed on a hot towel [...] help open respiratory and sinus passages. - M[place]in[place] Nasal [place] may offer relief of nasal and head [...] get worse. Thank you for coming to [facility] today. I appreciate your confidence in choosing the [facility] for your medical care. Miguel Tena APRN.EXTENSION SERVICE SPECIALIST IN CHARGE F [facility] [address] [facility] [id number] Prescriptions ordered this encounter Disp [...] Status:Closed by MIGUEL TENA CNP on 08/21/18 [facility] PROGRESSon 08-21-2018 Protein mass conc HNO ID: [id number] Author: Miguel Hall) Radu Service: ? Author Type: Nurse Practitioner Type: Progress Notes Filed: 08/21/2018 12:46 PM Note Text: Subjective The history is provided by the patient. No speech and language assistant was used. Cough This is a new [...] 3-5 days or get worse Miguel Tena APRN.EXTENSION SERVICE SPECIALIST IN CHARGE [facility] CNCOon 12-22-2017 CNCO Letter Text Erica Velazquez MD [facility] [address] [place] [address] Estefania Navarrete December 22, 2017 Estefania Navarrete [address] [address] [facility] [address] Dear Ms. Navarrete, It was noted that you did not keep your scheduled appointment on 12-22-17. It is important to contact the office in advance if you are unable to keep your appointment so that it is available for other patients. Your medical care is important to us. Please call our office to reschedule an appointment. Sincerely, Erica Velazquez MD [facility] Consult Reporton 01-05-2017 Consult Report Patient: JITENDRA NAVARRETE Age: 21 years Sex: Female : 1995 Associated Diagnoses: None Author: TYRON MA RES, KAREN [facility] Podiatry DepartmentReason for Consult: Active Problems [...] discussed with attending physician, Dr. Jaime Shepard [id number] ically Signed by: KAREN SHEPARD DPM, RES on 01/04/2017 13:59 EDTElectronically Co-Signed by: Cecelia SHEPARD DPM, RES 01/04/2017 14:37 EDTElectronically Co-Signed by: Rene REYES DPM 01/05/2017 18:28 EDT Normal [facility] APTTon 01-04-2017 aPTT 29.9 Second(s) Normal [facility] Comment on above: Result Comment: VERI FIED by Discern Expert. Performed By: #### 1 15067, 5993994, 370130, 765255, 140617, 022338 ####[facility] [address] [place] [id number] Medical Director: David Doe MD aPTT 25.9 Second(s) Normal 25.0-36.0 [facility] Comment on above: Performed By: #### 1 82939, 3135330, 712671, 904374, 824311, 340012 ####[facility] [address] [place] [id number]) [phone] Director: David Doe MD AUTO DIFFon 01-04-2017 Basophils Auto #/vol (Bld) 0.04 x1000 Normal 0.00-0.20 [facility] Comment on above: Performed By: #### 1 23787, 8111923, 286685, 569724, 709214, 111474 ####[facility] [address] [place] [id number]) [phone] Director: David Doe MD Basos % 0.5 % Normal [facility] Comment on above: Performed By: #### 1 17298, 5363730, 820230, 652503, 631247, 271954 ####[facility] [address] [place] [address]5830 Medical Director: David Doe MD Eos Count 0.10 x1000 Normal 0.00-0.50 [facility] Comment on above: Performed By: #### 1 32575, 1956156, 163849, 090329, 382859, 313763 ####[facility] [address] [place] 7345830 Medical Director: David Doe MD Eosinophils/100 leukocytes 1.0 % Normal [facility] Comment on above: Performed By: #### 1 83064, 0751021, 560143, 444509, 551848, 572096 ####[facility] [address] [place] [address]345830 Medical Director: David Doe MD Lymphocytes 2.84 x1000 Normal 1.20-4.80 [facility] Comment on above: Performed By: #### 1 34831, 0051483, 012966, 539800, 506535, 156941 ####[facility] [address] [place] [address] Medical Director: David Doe MD Lymphocytes/100 leukocytes 29.4 % Normal [facility] Comment on above: Performed By: #### 1 85836, 2237311, 087939, 249432, 829261, 013894 ####[facility] [address]pm[address] [place] [address] Medical Director: David Doe MD Providence Count 0.68 x1000 Normal 0.10-1.00 [facility] Comment on above: Performed By: #### 1 03729, 1496314, 632828, 370162, 115295, 125631 ####[facility] [address] [place] [address] Medical Director: David Doe MD Monocytes/100 leukocytes 7.0 % Normal [facility] Comment on above: Performed By: #### 1 87887, 4945878, 316632, 020028, 957967, 778254 ####[facility] [address]pkf[address] [place] [address] Medical Director: David Doe MD Neutrophils 5.98 x1000 Normal 1.40-8.80 [facility] Comment on above: Performed By: #### 1 71495, 8806644, 232222, 765669, 140260, 777869 ####[facility] [address]ad[address] [place] [address] Medical Director: David Doe MD Neutrophils/100 WBC Auto (Bld) 62.0 % Normal [facility] Comment on above: Performed By: #### 1 54425, 0917469, 545246, 012798, 160465, 641718 ####[facility] [address] [place] [address] Medical Director: Dvaid Doe MD COMPMETAon 01-04-2017 Globulin 4.0 g/dL Normal [facility] Comment on above: Performed By: #### 1 30272, 7272229, 131281, 504033, 879280, 225071 ####[facility] [address] [place] [address] Medical Director: David Doe MD Osmolality 277 mOsm/kg Normal 275-295 [facility] Comment on above: Performed By: #### 1 90105, 7826056, 307130, 833508, 847889, 899621 ####[facility] [address] [place] [address] Medical Director: David Doe MD eGFR (non-black) mL/min/{1.73_m2} Normal So [facility] Comment on above: Result Comment: Afri can Tristanian GFR Calc Performed By: #### 1 96949, 6672838, 290529, 325741, 801843, 741361 ####[facility] [address]rk[address] [place] [address] Medical Director: David Doe MD Result Comment: Non GFR CalcMedical judgement is necessary to interpret GFR. The calculated GFR may not accurately reflect renal status in patients >70 years, women, acutely ill hospitalized patients and patients with acute renal failure or known renal disease.Note:Creatinine clearance (not GFR) should be used for drug dosing. Albumin/Globulin Ratio 0.8 {ratio} Normal [facility] Comment on above: Performed By: #### 1 20910, 3580232, 312581, 868643, 600536, 040440 ####[facility] [address] [place] [address] Medical Director: David Doe MD BUN/Creatinine Ratio 17.6 mg/mg Normal [facility] Comment on above: Performed By: #### 1 22706, 9966654, 182969, 548111, 692550, 342046 ####[facility] [address] [place] [address] Medical Director: David Doe MD Alk Phos 61 unit/L Normal 45-117 [facility] Comment on above: Performed By: #### 1 51979, 1106064, 791830, 206675, 151803, 096302 ####[facility] [address] [place] [address] Medical Director: David Doe MD Bilirubin (total) 0.41 mg/dL Normal 0.20-1.00 [facility] Comment on above: Performed By: #### 1 28221, 9382763, 810944, 678174, 185316, 652846 ####[facility] [address] [place] [address] Medical Director: David Doe MD Protein 7.4 g/dL Normal 6.0-8.5 [facility] Comment on above: Performed By: #### 1 47179, 4358574, 292791, 718935, 722985, 943751 ####[facility] [address] [place] [address] Medical Director: David Doe MD GPT 16 unit/L Normal 13-56 [facility] Comment on above: Result Comment: Mariposa puncture should occur prior to sulfasalazine and/or sulfapyridine administration due to the potential for falsely depressed results.Baseline assay values before administration of sulfasalazine and sulfapyridine therapy would not be affected. Performed By: #### 1 04560, 1653772, 003176, 213011, 341091, 442160 ####[facility] [address] [place] [address] Medical Director: David Doe MD Creatinine 0.7 mg/dL Normal 0.6-1.0 [facility] Comment on above: Performed By: #### 1 37346, 9333829, 593867, 661056, 106804, 333081 ####[facility] [address]iv[address] [place] [address] Medical Director: David Doe MD GOT 14 unit/L Low 15-37 [facility] Comment on above: Result Comment: Mariposa puncture should occur prior to sulfasalazine and/or sulfapyridine administration due to the potential for falsely depressed results.Baseline assay values before administration of sulfasalazine and sulfapyridine therapy would not be affected. Performed By: #### 1 61624, 6773154, 223845, 432617, 746419, 926730 ####[facility] [address]tw[address]fu[address] [place] [address] Medical Director: David Doe MD Urea nitrogen 13 mg/dL Normal 10-20 [facility] Comment on above: Performed By: #### 1 59473, 0164383, 578198, 372228, 682536, 762984 ####[facility] [address]wu[address] [place] [address] Medical Director: David Doe MD Glucose mass conc 86 mg/dL Normal 72-100 [facility] Comment on above: Result Comment: Mariposa puncture should occur prior to sulfasalazine administration due to the potential for falsely depressed results. Venipuncture should occur prior to sulfapyridine administration due to the potential falsely elevated results.Baseline assay values before administration of sulfasalazine and sulfapyridine therapy would not be affected. Performed By: #### 1 89326, 3635718, 708312, 403856, 154526, 994876 ####[facility] [address]sr52447 [place] [address] Medical Director: David Doe MD Albumin 3.4 g/dL Normal 3.4-5.0 [facility] Comment on above: Performed By: #### 1 36234, 7920484, 473052, 864824, 288625, 702615 ####[facility] [address]avp[address] [place] [address] Medical Director: David Doe MD CO2 19.0 mmol/L Low 21.0-32.0 [facility] Comment on above: Performed By: #### 1 96249, 4165782, 718778, 918245, 424365, 755564 ####[facility] [address]bxhw20360 [place] [address] Medical Director: David Doe MD Calcium 9.0 mg/dL Normal 8.5-10.5 [facility] Comment on above: Performed By: #### 1 49203, 8089485, 817400, 123255, 956716, 817339 ####[facility] [address] [place] [address] Medical Director: David Doe MD Potassium molar conc 3.7 mmol/L Normal 3.5-5.1 [facility] Comment on above: Performed By: #### 1 02266, 2007531, 959411, 652997, 495832, 613086 ####[facility] T[address]totkc16312 [place] [address] Medical Director: David Doe MD Sodium 139 mmol/L Normal 135-145 [facility] Comment on above: Performed By: #### 1 36246, 3566701, 441574, 411711, 730801, 667183 ####[facility] [address] [place] [address] Medical Director: David Doe MD Chloride 108 mmol/L Normal 100-109 [facility] Comment on above: Performed By: #### 1 14588, 3946394, 402076, 498555, 978552, 142893 ####[facility] [address] [place] [address] Medical Director: David Doe MD CT LOWER [...] Damir SMITH MD Out: 01/04/17 12:59:57 Normal [facility] ED Physician Reporton 2016 ED Physician Report [...] Plan Diagnosis Crush injury of right foot ([id number] S97.81XA, Working, Medical) Plan Condition: Stable. Disposition: ED Discharge to Home was placed.(01/04/2017 13:39:31 EDT, Constant Order). Prescriptions: Launch prescriptions Pharmacy:Percocet 5/325 ([id number]) oral tablet (Prescribe): 1 tabs, ORAL, [id number], PRN: for pain, 24 tabs, 0 Refill(s)doxycycline hyclate 100 mg oral tablet (Prescribe): 100 mg = 1 tabs, ORAL, BID, for 10 days, 20 tabs, 0 Refill(s). Patient was given the following educational materials: Cryotherapy, Wmez-ld-Cezr, Compartment Syndrome of the Foot, Compartment Syndrome of the Foot, Cryotherapy, Qyzq-wj-Xwsq. Follow up with: [facility] [...] by: Selene GALVAN MD 01/04/2017 14:19 Normal [facility] ED Progress Noteon 7 ED Progress Note [...] medicatedsig other at bedsidepodiatry coming to see [id number] ASSUMED CARE OF PT, REPORT RECEIVED FROM [...] a little dizzy after trying crutches. Normal [facility] HCGon 01-04-2017 HCG, Qual <1.0 Normal [facility] Comment on above: Result Comment: 0 - 3 Negative3 - 50 Inconclusive>50 Positive Performed By: #### 1 88058, 5420868, 284409, 658079, 566857, 098433 ####[facility] [address] [place] [address] Medical Director: David Doe MD HEMOon 01-04-2017 DIFF? No Normal [facility] Comment on above: Performed By: #### 1 24584, 9118219, 929018, 159588, 179100, 851041 ####[facility] [address] [place], [place] 7812930 Medical Director: David Doe MD Erythrocyte distribution width Auto Ratio (RBC) 13.3 % Normal 11.5-14.5 [facility] Comment on above: Performed By: #### 1 81605, 2869386, 490306, 329259, 790365, 367227 ####[facility] [address]ol564[address] [place] [address] Medical Director: David Doe MD Erythrocytes (RBC) 4.80 x10 Normal 4.20-5.40 [facility] Comment on above: Result Comment: Note : RBC morphology is normal unless otherwise stated. Evaluation performed only if differential is requested. Performed By: #### 1 52840, 8431953, 968794, 665723, 889599, 172241 ####[facility] [address] [place], [place] [id number]) [phone] Director: David Doe MD Hematocrit (HCT) 39.0 % Normal 36.0-46.0 [facility] Comment on above: Performed By: #### 1 06847, 3633367, 174092, 483698, 896416, 551960 ####[facility] [address]psy[address]cj334[address] [place], [place] [address]) [phone] Director: David Doe MD Hemoglobin mass conc (Bld) 13.1 g/dL Normal 12.0-16.0 [facility] Comment on above: Performed By: #### 1 90771, 5602882, 616084, 186323, 191742, 528719 ####[facility] [address]ee[address] [place] [address] Medical Director: David Doe MD MCH 27.3 pg Normal 27.0-34.0 [facility] Comment on above: Performed By: #### 1 10828, 0342304, 395231, 897464, 843409, 250224 ####[facility] [address] [place] [address] Medical Director: David Doe MD MCHC mass conc (RBC) 33.6 g/dL Normal 32.0-37.0 [facility] Comment on above: Performed By: #### 1 56523, 4173838, 124641, 696913, 897097, 549907 ####[facility] [address]wl[address]tm96[address] [place] [address] Medical Director: David Doe MD MCV 81.3 fL Normal 80.0-100.0 [facility] Comment on above: Performed By: #### 1 76811, 6597116, 686546, 230878, 071764, 399152 ####[facility] [address] [place] [address] Medical Director: David Doe MD Nucleated RBC% 0 /100WC Normal [facility] Comment on above: Performed By: #### 1 33206, 8649099, 298300, 144169, 271539, 786116 ####[facility] [address]36[address] [place] [address] Medical Director: David Doe MD Platelet mean volume (PMV) 9.4 fL Normal 7.4-10.4 [facility] Comment on above: Performed By: #### 1 70292, 6546070, 830721, 324640, 158375, 291480 ####[facility] Amfmmbck74183 [place] [address] Medical Director: David Doe MD Platelets 238 x1000 Normal 150-450 [facility] Comment on above: Performed By: #### 1 40773, 1064076, 640088, 226096, 469533, 355419 ####[facility] [address]fev[address] [place] [address] Medical Director: David Doe MD WBC (Leukocytes) 9.6 10*3/uL Normal [facility] Comment on above: Performed By: #### 1 63146, 8315756, 592324, 757466, 028904, 247512 ####[facility] [address]uthxxac25625 [place] [address] Medical Director: David Doe MD WBC (Leukocytes) 9.6 x10 Normal 4.5-11.0 [facility] Comment on above: Performed By: #### 1 01694, 4076177, 444862, 548223, 708113, 751520 ####[facility] [address]62719 [place] [address] Medical Director: David Doe MD PT INRon 01-04-2017 Protime Median 11.1 Second(s) Normal [facility] Comment on above: Result Comment: VERI FIED by Discern Expert. Performed By: #### 1 77808, 2379262, 492733, 732663, 193887, 268650 ####[facility] [address]fr[address]t733[address] [place], [place] [id number]) [phone] Director: David Doe MD INR Coag RelTime (PPP) 1.0 {INR} Normal So [facility] Comment on above: Result Comment: Norm al reference range for INR on patients not on anticoagulant therapy: 0.9-1.1. General therapeutic range for patients on anticoagulant therapy: 2.0-3.5. Performed By: #### 1 36890, 0394018, 396361, 947880, 771315, 362336 ####[facility] [address]lr[address]yle559[address] [place] [address] Medical Director: David Doe MD Protime Patient 11.3 Second(s) Normal 9.8-12.7 [facility] Comment on above: Performed By: #### 1 86274, 2406714, 110362, 735241, 994974, 420823 ####[facility] [address]mvf416[address] [place] [address] Medical Director: David Doe MD XR FOOT [...] Alberto AGUILAR MD Out: 01/04/17 11:49:07 Normal [facility] Vital Signs Date Time Vital Sign Value Performing Clinician Facility 02-06-2025 09:29-0400 Body mass index (BMI) [Ratio] 43.38 kg/m2 Aditya Billy [employer] Work Phone: [facility] 02-06-2025 09:29-0400 Body weight 125.65 kg Aditya Billy [employer] Work Phone: [facility] 02-06-2025 09:29-0400 Diastolic blood pressure 78 mm[Hg] Aditya Billy [employer] Work Phone: [facility] 02-06-2025 09:29-0400 Systolic blood pressure 126 mm[Hg] Aditya Billy DO Work Phone: [facility] 01-23-2025 09:44-0400 Body mass index (BMI) [Ratio] 43.35 kg/m2 Latasha Padgett PA Work Phone: [facility] 01-23-2025 09:44-0400 Body weight 125.56 kg Latasha Padgett PA Work Phone: [facility] 01-23-2025 09:44-0400 Diastolic blood pressure 74 mm[Hg] Latasha Madison PA Work Phone: [facility] 01-23-2025 09:44-0400 Systolic blood pressure 122 mm[Hg] Latasha Bautistaey PA Work Phone: [facility] 12-27-2024 10:35-0400 Body mass index (BMI) [Ratio] 42.88 kg/m2 Latasha Padgett PA Work Phone: [facility] 12-27-2024 10:35-0400 Body weight 124.19 kg Latasha KULKARNI Work Phone: [facility] 12-27-2024 10:35-0400 Diastolic blood pressure 74 mm[Hg] Latasha KULKARNI Work Phone: [facility] 12-27-2024 10:35-0400 Systolic blood pressure 122 mm[Hg] Latasha KULKARNI Work Phone: [facility] 12-13-2024 13:51-0400 Body mass index (BMI) [Ratio] 43.07 kg/m2 Aditya Billy DO Work Phone: [facility] 12-13-2024 13:51-0400 Body weight 124.74 kg Aditya Billy DO Work Phone: [facility] 12-13-2024 13:51-0400 Diastolic blood pressure 70 mm[Hg] Aditya Billy DO Work Phone: [facility] 12-13-2024 13:51-0400 Systolic blood pressure 128 mm[Hg] Aditya Billy DO Work Phone: [facility] 11-22-2024 14:29-0400 Body mass index (BMI) [Ratio] 42.57 kg/m2 Aditya Billy DO Work Phone: [facility] 11-22-2024 14:29-0400 Body weight 123.29 kg Aditya Billy DO Work Phone: [facility] 11-22-2024 14:29-0400 Diastolic blood pressure 78 mm[Hg] Aditya Billy DO Work Phone: [facility] 11-22-2024 14:29-0400 Systolic blood pressure 128 mm[Hg] Aditya Billy DO Work Phone: [facility] 10-25-2024 09:07-0400 Body mass index (BMI) [Ratio] 41.86 kg/m2 Latasha KULKARNI Work Phone: [facility] 10-25-2024 09:07-0400 Body weight 121.22 kg Latasha KULKARNI Work Phone: [facility] 10-25-2024 09:07-0400 Diastolic blood pressure 82 mm[Hg] Latasha KULKARNI Work Phone: [facility] 10-25-2024 09:07-0400 Systolic blood pressure 108 mm[Hg] Latasha KULKARNI Work Phone: [facility] 09-26-2024 10:24-0400 Body mass index (BMI) [Ratio] 41.62 kg/m2 Aditya Billy DO Work Phone: [facility] 09-26-2024 10:24-0400 Body weight 120.54 kg Aditya Billy DO Work Phone: [facility] 09-26-2024 10:24-0400 Diastolic blood pressure 76 mm[Hg] Aditya Billy DO Work Phone: [facility] 09-26-2024 10:24-0400 Systolic blood pressure 124 mm[Hg] Aditya Billy DO Work Phone: [facility] 08-29-2024 09:23-0400 Body mass index (BMI) [Ratio] 41.47 kg/m2 Aditya Billy DO Work Phone: [facility] 08-29-2024 09:23-0400 Body weight 120.11 kg Aditya Billy DO Work Phone: [facility] 08-29-2024 09:23-0400 Diastolic blood pressure 66 mm[Hg] Aditya Billy DO Work Phone: [facility] 08-29-2024 09:23-0400 Systolic blood pressure 122 mm[Hg] Aditya Billy DO Work Phone: [facility] 06-14-2024 09:05-0500 Body mass index (BMI) [Ratio] 41.16 kg/m2 Latasha KULKARNI Work Phone: [facility] 06-14-2024 09:05-0500 Body weight 119.2 kg Latasha Dayron PA Work Phone: [facility] 06-14-2024 09:05-0500 Diastolic blood pressure 74 mm[Hg] Latasha Dayron PA Work Phone: [facility] 06-14-2024 09:05-0500 Systolic blood pressure 114 mm[Hg] Latasha Madison PA Work Phone: [facility] 05-17-2024 08:45-0500 Body mass index (BMI) [Ratio] 41.04 kg/m2 Latasha Madison PA Work Phone: [facility] 05-17-2024 08:45-0500 Body weight 118.84 kg Latasha Madison PA Work Phone: [facility] 05-17-2024 08:45-0500 Diastolic blood pressure 70 mm[Hg] Latasha Madison PA Work Phone: [facility] 05-17-2024 08:45-0500 Systolic blood pressure 118 mm[Hg] Latasha Dayron PA Work Phone: [facility] 04-18-2024 09:17-0500 Body mass index (BMI) [Ratio] 42.26 kg/m2 Latasha Madison PA Work Phone: [facility] 04-18-2024 09:17-0500 Body weight 122.38 kg Latasha Dayron PA Work Phone: [facility] 04-18-2024 09:17-0500 Diastolic blood pressure 76 mm[Hg] Latasha Dayron PA Work Phone: [facility] 04-18-2024 09:17-0500 Systolic blood pressure 114 mm[Hg] Latasha Madison PA Work Phone: [facility] 02-21-2024 14:13-0400 Body mass index (BMI) [Ratio] 39.47 kg/m2 Latasha Dayron PA Work Phone: [facility] 02-21-2024 14:13-0400 Body weight 114.31 kg Latasha Madison PA Work Phone: [facility] 02-21-2024 14:13-0400 Diastolic blood pressure 74 mm[Hg] Latasha Dayron PA Work Phone: [facility] 02-21-2024 14:13-0400 Systolic blood pressure 118 mm[Hg] Latasha KULKARNI Work Phone: [facility] 07-15-2023 11:50-0500 Body mass index (BMI) [Ratio] 36.65 kg/m2 Aditya Billy DO Work Phone: [facility] 07-15-2023 11:50-0500 Body weight 106.14 kg Aditya Billy DO Work Phone: [facility] 12-04-2021 10:03-0400 Body height 173.35 cm [facility] 12-04-2021 10:03-0400 Body mass index (BMI) [Ratio] 35.22 kg/m2 [facility] 12-04-2021 10:03-0400 Body surface area Derived from formula 2.26 m2 [facility] 12-04-2021 10:03-0400 Body weight 105.83 kg [facility] 12-04-2021 10:03-0400 Diastolic blood pressure 68 mm[Hg] [facility] 12-04-2021 10:03-0400 Heart rate 68 /min [facility] 12-04-2021 10:03-0400 Systolic blood pressure 116 mm[Hg] [facility] 10-15-2020 01:15-0400 Diastolic blood pressure 71 mm[Hg] Donny Hatfield DO Work Phone: [employer] Work Phone: 10-15-2020 01:15-0400 SaO2% (BldA) [Mass fraction] 94 % Donny Andes DO Work Phone: [employer] Work Phone: 10-15-2020 01:15-0400 Systolic blood pressure 117 mm[Hg] Donny Andes DO Work Phone: [employer] Work Phone: 10-14-2020 23:18-0400 Body temperature 97.59 [degF] Donny Andes DO Work Phone: [employer] Work Phone: 10-14-2020 23:18-0400 Heart rate 98 /min Donny Andes DO Work Phone: [employer] Work Phone: 10-14-2020 23:18-0400 Respiratory rate 18 /min Donny Andes DO Work Phone: [employer] Work Phone: 09-23-2020 08:31-0400 Body height 172.72 cm Miguel Holley CNP Work Phone: [employer] [facility] Work Phone: 09-23-2020 08:31-0400 Body mass index (BMI) [Ratio] 40.9 kg/m2 Miguel Holley CNP Work Phone: [employer] [facility] Work Phone: 09-23-2020 08:31-0400 Body surface area Derived from formula 2.32 m2 Miguel Holley CNP Work Phone: [employer] [facility] Work Phone: 09-23-2020 08:31-0400 Body temperature 964 [degF] Miguel Holley CNP Work Phone: [facility] Work Phone: 09-23-2020 08:31-0400 Body weight 122.02 kg Miguel Holley CNP Work Phone: [facility] Work Phone: 09-23-2020 08:31-0400 Diastolic blood [...] 04-08-2020 16:25-0500 Respiratory Rate 16 /min Miguel [facility], [place] 04-08-2020 16:20-0500 Pulse (Heart Rate) 86 /min [facility] [place] 04-08-2020 16:20-0500 Pulse Oximetry 98 % [facility] [place] 04-08-2020 16:00-0500 BP Diastolic 66 mm[Hg] [facility] , [place] 04-08-2020 16:00-0500 BP Systolic 121 mm[Hg] [facility] [place] 04-08-2020 13:23-0500 Body Temperature 98.4 [degF] Miguel Dell [employer], [place] 03-19-2020 19:09-0400 BMI (Body Mass Index) 37.3 kg/m2 [facility] Work Phone: 03-19-2020 19:09-0400 Body weight 111.13 kg [facility] Work Phone: 03-19-2020 19:09-0400 BSA (Body Surface Area) 2.23 m2 [facility] Work Phone: 03-19-2020 19:09-0400 Height 172.72 cm [facility] Work Phone: 03-05-2020 08:30-0400 BMI (Body Mass Index) 37.3 kg/m2 [facility] Work Phone: 03-05-2020 08:30-0400 Body Temperature 95.4 [degF] [facility] Work Phone: 03-05-2020 08:30-0400 Body weight 111.13 kg [facility] Work Phone: 03-05-2020 08:30-0400 BP Diastolic 80 mm[Hg] [facility] Work Phone: 03-05-2020 08:30-0400 BP Systolic 120 mm[Hg] [facility] Work Phone: 03-05-2020 08:30-0400 BSA (Body Surface Area) 2.23 m2 [facility] Work Phone: 03-05-2020 08:30-0400 Height 172.72 cm [facility] Work Phone: 03-05-2020 08:30-0400 Pulse (Heart Rate) 74 /min [facility] Work Phone: 03-05-2020 08:30-0400 Pulse Oximetry 99 % [facility] Work Phone: 03-05-2020 08:30-0400 Respiratory Rate 18 /min [facility] Work Phone: 03-05-2020 08:30-0400 SaO2% (BldA) [Mass fraction] 99 % [facility] Work Phone: [facility] Work Phone: 12-05-2019 08:37-0400 BMI (Body Mass Index) 35.4 kg/m2 [facility] Work Phone: 12-05-2019 08:37-0400 Body Temperature 98.8 [degF] [facility] Work Phone: 12-05-2019 08:37-0400 Body weight 105.69 kg [facility] Work Phone: 12-05-2019 08:37-0400 BP Diastolic 72 mm[Hg] [facility] Work Phone: 12-05-2019 08:37-0400 BP Systolic 116 mm[Hg] [facility] Work Phone: 12-05-2019 08:37-0400 BSA (Body Surface Area) 2.18 m2 [facility] Work Phone: 12-05-2019 08:37-0400 Flow Rate 0 L/min [facility] Work Phone: 12-05-2019 08:37-0400 Height 172.72 cm [facility] Work Phone: 12-05-2019 08:37-0400 Inhaled Oxygen Concentration 21 % [facility] Work Phone: 12-05-2019 08:37-0400 Pulse (Heart Rate) 81 /min [facility] Work Phone: 12-05-2019 08:37-0400 Pulse Oximetry 98 % [facility] Work Phone: 12-05-2019 08:37-0400 Respiratory Rate 18 /min [facility] Work Phone: 12-05-2019 08:37-0400 SaO2% (BldA) [Mass fraction] 98 % Miguel Dell [facility] Work Phone: [facility] Work Phone: 11-06-2019 09:02-0400 BMI (Body Mass Index) 36.2 kg/m2 [facility] Work Phone: 11-06-2019 09:02-0400 Body Temperature 95.8 [degF] [facility] Work Phone: 11-06-2019 09:02-0400 Body weight 107.96 kg [facility] Work Phone: 11-06-2019 09:02-0400 BP Diastolic 80 mm[Hg] [facility] Work Phone: 11-06-2019 09:02-0400 BP Systolic 110 mm[Hg] [facility] Work Phone: 11-06-2019 09:02-0400 BSA (Body Surface Area) 2.2 m2 [facility] Work Phone: 11-06-2019 09:02-0400 Height 172.72 cm [facility] Work Phone: 11-06-2019 09:02-0400 Pulse (Heart Rate) 94 /min [facility] Work Phone: 11-06-2019 09:02-0400 Pulse Oximetry 98 % [facility] Work Phone: 11-06-2019 09:02-0400 Respiratory Rate 18 /min [facility] Work Phone: 11-06-2019 09:02-0400 SaO2% (BldA) [Mass fraction] 98 % Miguel Holley [facility] Work Phone: [facility] Work Phone: 10-12-2019 09:53-0400 BMI (Body Mass Index) 38.2 kg/m2 [facility] Work Phone: 10-12-2019 09:53-0400 Body Temperature 98.7 [degF] [facility] Work Phone: 10-12-2019 09:53-0400 Body weight 113.85 kg [facility] Work Phone: 10-12-2019 09:53-0400 BP Diastolic 82 mm[Hg] [facility] Work Phone: 10-12-2019 09:53-0400 BP Systolic 122 mm[Hg] [facility] Work Phone: 10-12-2019 09:53-0400 BSA (Body Surface Area) 2.25 m2 [facility] Work Phone: 10-12-2019 09:53-0400 Flow Rate 0 L/min [facility] Work Phone: 10-12-2019 09:53-0400 Height 172.72 cm [facility] Work Phone: 10-12-2019 09:53-0400 Inhaled Oxygen Concentration 21 % [facility] Work Phone: 10-12-2019 09:53-0400 Pulse (Heart Rate) 97 /min [facility] Work Phone: 10-12-2019 09:53-0400 Pulse Oximetry 98 % [facility] Work Phone: 10-12-2019 09:53-0400 Respiratory Rate 18 /min [facility] Work Phone: 10-12-2019 09:53-0400 SaO2% (BldA) [Mass fraction] 98 % [facility] Work Phone: [facility] Work Phone: 09-14-2019 08:35-0400 BMI (Body Mass Index) 37.7 kg/m2 [facility] Work Phone: 09-14-2019 08:35-0400 Body Temperature 96.6 [degF] [facility] Work Phone: 09-14-2019 08:35-0400 Body weight 112.49 kg [facility] Work Phone: 09-14-2019 08:35-0400 BP Diastolic 80 mm[Hg] [facility] Work Phone: 09-14-2019 08:35-0400 BP Systolic 130 mm[Hg] [facility] Work Phone: 09-14-2019 08:35-0400 BSA (Body Surface Area) 2.24 m2 [facility] Work Phone: 09-14-2019 08:35-0400 Height 172.72 cm [facility] Work Phone: 09-14-2019 08:35-0400 Pulse (Heart Rate) 81 /min [facility] Work Phone: 09-14-2019 08:35-0400 Pulse Oximetry 98 % [facility] Work Phone: 09-14-2019 08:35-0400 Respiratory Rate 18 /min [facility] Work Phone: 09-05-2019 10:26-0400 BMI (Body Mass Index) 37.3 kg/m2 [facility] Work Phone: 09-05-2019 10:26-0400 Body weight 111.13 kg [facility] Work Phone: 09-05-2019 10:26-0400 BSA (Body Surface Area) 2.23 m2 [facility] Work Phone: 09-05-2019 10:26-0400 Height 172.72 cm [facility] Work Phone: 08-17-2019 08:29-0400 BMI (Body Mass Index) 37.3 kg/m2 [facility] Work Phone: 08-17-2019 08:29-0400 Body Temperature 97.9 [degF] [facility] Work Phone: 08-17-2019 08:29-0400 Body weight 111.13 kg [facility] Work Phone: 08-17-2019 08:29-0400 BP Diastolic 80 mm[Hg] [facility] Work Phone: 08-17-2019 08:29-0400 BP Systolic 120 mm[Hg] [facility] Work Phone: 08-17-2019 08:29-0400 BSA (Body Surface Area) 2.23 m2 [facility] Work Phone: 08-17-2019 08:29-0400 Height 172.72 cm [facility] Work Phone: 08-17-2019 08:29-0400 Pulse (Heart Rate) 68 /min [facility] Work Phone: 08-17-2019 08:29-0400 Pulse Oximetry 98 % [facility] Work Phone: 08-17-2019 08:29-0400 Respiratory Rate 18 /min [facility] Work Phone: 07-20-2019 08:36-0500 BMI (Body Mass Index) 39 kg/m2 [facility] Work Phone: 07-20-2019 08:36-0500 Body Temperature 98.4 [degF] [facility] Work Phone: 07-20-2019 08:36-0500 Body weight 116.39 kg [facility] Work Phone: 07-20-2019 08:36-0500 BP Diastolic 80 mm[Hg] [facility] Work Phone: 07-20-2019 08:36-0500 BP Systolic 120 mm[Hg] [facility] Work Phone: 07-20-2019 08:36-0500 BSA (Body Surface Area) 2.27 m2 [facility] Work Phone: 07-20-2019 08:36-0500 Height 172.72 cm [facility] Work Phone: 07-20-2019 08:36-0500 Pulse (Heart Rate) 87 /min [facility] Work Phone: 07-20-2019 08:36-0500 Pulse Oximetry 97 % [facility] Work Phone: 07-20-2019 08:36-0500 Respiratory Rate 18 /min [facility] Work Phone: 07-06-2019 08:43-0500 BMI (Body Mass Index) 39.7 kg/m2 [facility] Work Phone: 07-06-2019 08:43-0500 Body Temperature 97.3 [degF] [facility] Work Phone: 07-06-2019 08:43-0500 Body weight 118.39 kg [facility] Work Phone: 07-06-2019 08:43-0500 BP Diastolic 82 mm[Hg] [facility] Work Phone: 07-06-2019 08:43-0500 BP Systolic 122 mm[Hg] [facility] Work Phone: 07-06-2019 08:43-0500 BSA (Body Surface Area) 2.29 m2 [facility] Work Phone: 07-06-2019 08:43-0500 Height 172.72 cm [facility] Work Phone: 07-06-2019 08:43-0500 Pulse (Heart Rate) 78 /min [facility] Work Phone: 07-06-2019 08:43-0500 Pulse Oximetry 98 % [facility] Work Phone: 07-06-2019 08:43-0500 Respiratory Rate 18 /min [facility] Work Phone: Encounters Encounter Date Encounter Type Care Provider Facility Start: 02-06-2025 End: 02-06-2025 Bamboo flowsheet Aditya Billy DO Work Phone: [facility] Start: 02-06-2025 End: 02-06-2025 Bamboo flowsheet Aditya Billy DO Work Phone: [facility] Start: 02-06-2025 End: 02-06-2025 Office outpatient visit 15 minutes Aditya Billy DO Work Phone: [facility] Comment on above: Third trimester preg robson ([facility]); 36 weeks gestation of ([facility]) Start: 02-02-2025 End: 02-02-2025 Clinisync Result Encounter [...] Bamboo flowsheet Latasha KULKARNI Work Phone: [facility] [place] [facility] Start: 01-23-2025 End: 01-23-2025 Bamboo flowsheet Latasha KULKARNI Work Phone: [facility] Start: 01-23-2025 End: 01-23-2025 Office outpatient visit 15 minutes Latasha KULKARNI Work Phone: [facility] Comment on above: Third trimester preg robson ([facility]); 34 weeks gestation of ([facility]) Start: 01-23-2025 End: 01-23-2025 ambulatory LATASHA PADGETT Not Available Start: 01-19-2025 End: 01-19-2025 Clinisync Result Encounter Aditya Billy DO Work Phone: [facility] Unsolicited Start: 01-19-2025 End: 01-19-2025 Clinisync Result Encounter Aditya Billy DO Work Phone: [facility] Unsolicited Start: 01-09-2025 End: 01-09-2025 Bamboo flowsheet Aditya Billy DO Work Phone: [facility] Start: 01-09-2025 End: 01-09-2025 Bamboo flowsheet Aditya Billy DO Work Phone: [facility] Start: 01-09-2025 End: 01-09-2025 Office outpatient visit 15 minutes Aditya Billy DO Work Phone: [facility] Comment on above: Third trimester preg robson ([facility]); 32 weeks gestation of ([facility]); Gestational diabetes mellitus (GDM), antepartum, gestational diabetes method of control unspecified ([facility]); Hyperglycemia during ([facility]) Start: 01-09-2025 End: 01-09-2025 ambulatory ADITYA BILLY Not Available Start: 12-27-2024 End: 12-27-2024 Bamboo flowsheet Latasha KULKARNI Work Phone: [facility] Start: 12-27-2024 End: 12-27-2024 Bamboo flowsheet Latasha KULKARNI Work Phone: [facility] Start: 12-27-2024 End: 12-27-2024 ambulatory ADITYA BILLY Not Available Start: 12-27-2024 End: 12-27-2024 Office outpatient visit 15 minutes Latasha KULKARNI Work Phone: [facility] Comment on above: Third trimester preg robson ([facility]) Start: 12-13-2024 End: 12-13-2024 ambulatory ADITYA BILLY Not Available Start: 12-13-2024 End: 12-13-2024 Office outpatient visit 15 minutes Aditya Billy DO Work Phone: [facility] Comment on above: Elevated glucose rikki erance test; History of gestational diabetes; Third trimester ([facility]); 28 weeks gestation of ([facility]); Gestational diabetes mellitus (GDM), antepartum, gestational diabetes method of control unspecified ([facility]) Start: 12-12-2024 End: 12-12-2024 Clinisync [...] (Primary D x); 25 weeks gestation of ([facility]); Second trimester ([facility]); History of gestational diabetes; Diabetes mellitus screening Start: 10-25-2024 End: 10-25-2024 Office outpatient visit 15 minutes Latasha KULKARNI Work Phone: [facility] Comment on above: Second trimester pre gnancy; 21 weeks gestation of Start: 10-25-2024 End: 10-25-2024 ambulatory LATASHA PADGETT Not Available Start: 10-17-2024 End: 10-30-2024 Clinisync Result Encounter Aditya Billy DO Work Phone: [facility] Unsolicited Start: 10-17-2024 End: 10-30-2024 Clinisync Result Encounter Aditya Billy DO Work Phone: [facility] Unsolicited Start: 10-17-2024 End: 10-17-2024 ambulatory ADITYA CERVANTES [facility] Start: 10-17-2024 End: 10-17-2024 Subsequent hospital visit by physician Miguel Stewart CNP Work Phone: [facility] Start: 09-26-2024 End: 09-26-2024 Bamboo flowsheet Aditya Billy DO Work Phone: [facility] Start: 09-26-2024 End: 09-28-2024 Bamboo flowsheet Aditya Billy DO Work Phone: [facility] Start: 09-26-2024 End: 09-28-2024 Clinisync Result Encounter Aditya Billy DO Work Phone: [facility] External Department Unsolicited Start: 09-26-2024 End: 09-26-2024 ambulatory ADITYA GUEVARAO Not Available Start: 09-26-2024 End: 09-26-2024 Patient encounter procedure Aditya Billy DO Work Phone: [facility] Start: 09-26-2024 End: 09-26-2024 Periodic [...] 01-01-2023 Patient encounter procedure Miguel Holley APRN [employer] Work Phone: [facility] Start: 01-01-2023 End: 01-01-2023 Subsequent hospital visit by physician Miguel Holley APRN [employer] Work Phone: [facility] Comment on above: Women's annual routi ne gynecological examination Start: 12-16-2021 End: 12-16-2021 Subsequent hospital visit by physician Miguel Holley APRN [employer] Work Phone: [facility] Start: 12-04-2021 Split Srvc Shona Jenkins rne Other [facility] Start: 10-02-2021 End: 10-02-2021 Patient encounter procedure Miguel Holley APRN [employer] Work Phone: [facility] Start: 10-02-2021 End: 10-02-2021 Subsequent hospital visit by physician Miguel Dell TRIPELTT - EXTENSION SERVICE SPECIALIST IN CHARGE Work Phone: [facility] Comment on above: Women's annual routi ne gynecological examination Start: 10-14-2020 End: 10-15-2020 Emergency department patient visit Donny Hatfield DO Work Phone: [facility] ED Comment on above: Nausea vomiting and diarrhea (Primary Dx); Generalized abdominal pain Start: 09-23-2020 End: 09-24-2020 ambulatory [facility] Start: 09-23-2020 End: 09-23-2020 Subsequent hospital visit by physician Miguel Dell TRIPLETT - EXTENSION SERVICE SPECIALIST IN CHARGE Work Phone: [facility] Start: 09-23-2020 End: 09-23-2020 General Jammie Herrera [employer] Work Phone: [facility] Work Phone: Start: 09-23-2020 End: 09-23-2020 Adult health examination Miguel Holley DIANELYS Work Phone: [facility] Work Phone: Start: 09-23-2020 End: 09-23-2020 [facility]QHC visit, estab pt Miguel Holley EXTENSION SERVICE SPECIALIST IN CHARGE Work Phone: [facility] Work Phone: Start: 04-08-2020 End: 04-08-2020 Emergency department patient visit Miguel [facility] ED Comment on above: COVID-19 (Primary Dx ); Fatty liver Start: 03-19-2020 End: 03-19-2020 Telemedicine consultation with patient Miguel Holley Work Phone: [facility] Work Phone: Start: 03-05-2020 End: 03-05-2020 Established patient Miguel Holley Work Phone: [facility] Work Phone: Start: 12-05-2019 End: 12-05-2019 Established patient Poly Franco Work Phone: [facility] Work Phone: Start: 11-06-2019 End: 11-06-2019 Established patient Poly Franco Work Phone: [facility] Work Phone: Start: 10-12-2019 End: 10-12-2019 Patient encounter procedure Paty Goldsmith Work Phone: [facility] Work Phone: Start: 10-12-2019 End: 10-12-2019 Established patient Poly Franco Work Phone: [facility] Work Phone: Start: 09-14-2019 End: 09-14-2019 Established patient Poly Franco Work Phone: [facility] Work Phone: Start: 09-11-2019 End: 09-11-2019 Telemedicine consultation with patient Poly Franco Work Phone: [facility] Work Phone: Start: 09-05-2019 End: 09-05-2019 Telemedicine consultation with patient Poly Franco Work Phone: [facility] Work Phone: Start: 08-17-2019 End: 09-11-2019 Telemedicine consultation with patient Poly Franco Work Phone: [facility] Work Phone: Start: 08-17-2019 End: 08-17-2019 Established patient Miguel Holley Work Phone: [facility] Work Phone: Start: 07-20-2019 End: 07-20-2019 Established patient Miguel Holley Work Phone: [facility] Work Phone: Start: 07-06-2019 End: 07-06-2019 Subsequent hospital visit by physician Jackson [facility] Start: 07-06-2019 End: 07-06-2019 Established patient Anh Virk Work Phone: [facility] Work Phone: Start: 07-06-2019 End: 07-06-2019 New patient Allyson Floyd Work Phone: [facility] Work Phone: Start: 02-02-2019 End: 02-04-2019 Subsequent hospital visit by physician 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 Work Phone: Start: 12-16-2021 Assay of blood/uric acid Dedrick Wood PA-C Work Phone: Start: 12-16-2021 C-reactive protein Robel Wood PA-C Work Phone: Start: 12-04-2021 Nerve conduction heaven dies 9-10 studies Shona Lucio Start: 10-02-2021 Microscopic observat ion [Identifier] in Cervix by Cyto stain Miguel Holley DIRECTOR OF CATERING SALES - [facility] Work Phone: Start: 10-15-2020 Urinalysis microscop ic [...] pressure < 80 mm hg Miguel Holley [facility] Work Phone: Start: 09-23-2020 Most recent systolic blood pressure <130 mm hg Miguel Holley [facility] Work Phone: Start: 09-23-2020 Pt-focused hlth risk assmt score doc stnd instrm Miguel Holley [facility] Work Phone: Start: 09-23-2020 Antibody hiv-1&hiv-2 single result Miguel Holley [facility] Work Phone: Start: 09-23-2020 Comprehensive metabo lic panel Miguel Holley DIRECTOR OF CATERING SALES - [facility] Work Phone: Start: 04-08-2020 Ct thorax w/contrast material Ninoska Lopes Work Phone: Start: 04-08-2020 COVID-19 Ninoska allen Work Phone: Start: 04-08-2020 Urine test visual color cmprsn meths Ninoska Lopes Work Phone: Start: 04-08-2020 Assay of troponin quantitative Ninoska Lopes Work Phone: Start: 04-08-2020 Blood count complete automated Ninoska Lopes Work Phone: Start: 04-08-2020 Comprehensive metabo lic panel Ninoska Lopes Work Phone: Start: 04-08-2020 Natriuretic peptide [facility] ruddy Lopes Work Phone: Start: 04-08-2020 [...] Start: 08-17-2019 Diast bp <80 mm hg HumzaRomulo Work Phone: Start: 08-17-2019 Syst bp lt 130 mm hg nury Dell Work Phone: Start: 07-06-2019 Hemoglobin glycosyla marty a1c Allyson Everett Work Phone: Start: 07-06-2019 Psychotherapy w/emely ent 30 minutes Anh Bartonch Work Phone: Start: 07-06-2019 Assay of free [...] Floyd Work Phone: Start: 02-02-2019 Us transvaginal Manfredtreva Akins Work Phone: Start: 02-07-2018 Microscopic observat ion [Identifier] in Cervix by Cyto stain Miguel Holley DIRECTOR OF CAT[employer]ING SALES - EXTENSION SERVICE SPECIALIST IN CHARGE Work Phone: H/O: section S/P jose carlos [...] malign ant neoplasm of cervix Pap smear [facility] Start: 02-28-2025 End: 02-28-2025 Patient encounter procedure 02/28/2025 9:50 AM EDT Office Visit DENISE CESAR [address] [place] [id number] Nedra Raymond, MOULDER OPERATOR [address] [place] [id number] [facility] Start: 02-13-2025 End: 02-13-2025 Patient encounter procedure 02/13/2025 9:10 AM EDT Routine [facility] [address] [place] [phone] Aditya Cervantes, DO [address] [place] [address] [facility] [place] [facility] Start: 02-07-2025 End: 02-07-2025 Patient encounter procedure 02/07/2025 10:50 AM EDT Routine [facility] [address] [place] [phone] Aditya Cervantes, DO [address] [place] [address] [facility] [place] [facility] Start: 02-06-2025 End: 02-06-2026 CULTURE, GROUP B STREP WITH SUSCEPTIBLITY CULTURE, GROUP B STREP WITH SUSCEPTIBLITY Lab Routine Third trimester ([facility]) Expected: 02/06/2025, Expires: 02/06/2026 [facility] Work Phone: Comment on above: Expected: 02/06/2025 , Expires: 02/06/2026 Start: 02-06-2025 End: 02-06-2025 Patient encounter procedure DENISE CESAR Comment on above: Arrived Start: 01-29-2025 Influenza vaccination Influenza Vacc ine (#1) [facility] Start: 01-23-2025 End: 01-23-2025 Patient encounter procedure DENISE CESAR Comment on above: Arrived Start: 01-10-2025 End: 01-10-2025 Patient encounter procedure 01/10/2025 1:00 PM EDT Routine [facility] [address] [place] [phone] Aditya Cervantes, [address] [place] [address] [facility] Start: 01-09-2025 End: 07-12-2025 US biophysical profile w non stress test US biophysical profile w non stress test Imaging Routine Hyperglycemia during ([facility]) Expected: 01/09/2025 (Approximate), Expires: 07/12/2025 [facility] Work Phone: Comment on above: Expected: 01/09/2025 (Approximate), Expires: 07/12/2025 Start: 01-09-2025 End: 01-09-2025 Patient encounter procedure [facility] Comment on above: Arrived Start: 12-29-2024 Influenza vaccination Flu vacc ine (Season Ended) [facility] Start: 12-27-2024 End: 12-27-2024 Professional / ancillary services management [facility] Start: 12-27-2024 End: 12-27-2024 Patient encounter procedure 12/27/2024 10:20 AM EDT Routine [facility] [address] [place] [phone] Latasha Padgett PA [address] [place] [address] [facility] Start: 12-13-2024 End: 12-13-2024 Patient encounter procedure 12/13/2024 1:40 PM EDT Routine [facility] [address] [place] [phone] Aditya Cervantes, [address] [place] [address] [facility] Start: 12-06-2024 End: 12-06-2025 Measurement of glucose 3 hours after glucose challenge for glucose tolerance test Glucose tolerance, 3 hours Lab Routine Elevated glucose tolerance test Expected: 12/06/2024 (Approximate), Expires: 12/06/2025 [facility] Work Phone: Comment on above: Expected: 12/06/2024 (Approximate), Expires: 12/06/2025 Start: 11-22-2024 End: 11-22-2025 12 lead ECG ECG 12 lead unit performed ECG Routine Dizziness Expected: 11/22/2024 (Approximate), Expires: 11/22/2025 [facility] Work Phone: Comment on above: Expected: 11/22/2024 (Approximate), Expires: 11/22/2025 Start: 11-22-2024 End: 11-22-2025 CBC panel - Blood by Automated count CBC Lab Routine Diabetes mellitus screening Expected: 11/22/2024 (Approximate), Expires: 11/22/2025 [facility] Work Phone: Comment on above: Expected: 11/22/2024 (Approximate), Expires: 11/22/2025 Start: 11-22-2024 End: 11-22-2025 Measurement of glucose 1 hour after glucose challenge for glucose tolerance test Glucose tolerance, 1 hour Lab Routine Diabetes mellitus screening Expected: 11/22/2024 (Approximate), Expires: 11/22/2025 [facility] Comment on above: Expected: 11/22/2024 (Approximate), Expires: 11/22/2025 Start: 11-22-2024 End: 11-22-2024 Patient encounter procedure 11/22/2024 1:50 PM EDT Routine [facility] [address] [place] [address] Aditya Cervantes DO [address] [place] [address] [facility] Start: 10-25-2024 End: 10-25-2024 Patient encounter procedure 10/25/2024 9:30 AM EDT Routine [facility] [address] [place] [address] Latasha Padgett PA [address] [place] [address] [facility] Start: 10-25-2024 End: 10-25-2024 Professional / ancillary services management 10/25/2024 8:00 AM EDT Ancillary Procedure [facility] [address] [facility] [place] [id number] [facility] Start: 10-02-2024 Screening for malign ant neoplasm of cervix Pap smear [facility] Start: 09-26-2024 End: 11-26-2024 Alpha fetoprotein, maternal Alpha fetoprotein, maternal Lab Routine 17 weeks gestation of Expected: 09/26/2024 (Approximate), Expires: 11/26/2024 [facility] Comment on above: Expected: 09/26/2024 (Approximate), Expires: 11/26/2024 Start: 09-26-2024 End: 12-26-2024 US for US OB 14+ weeks anatomy scan Imaging Routine Screening, , for anatomic survey Expected: 09/26/2024, Expires: 12/26/2024 [facility] Comment on above: Expected: 09/26/2024 , Expires: 12/26/2024 Start: 09-26-2024 End: 09-26-2024 Patient encounter procedure 09/26/2024 9:50 AM EDT Routine [facility] [address] [place] [id number] Aditya Cervantes, DO [address] [place] [address] [facility] Start: 08-29-2024 End: 08-29-2024 Patient encounter procedure 08/29/2024 9:20 AM EDT Routine [facility] [address] [facility] [place] [id number] Aditya Cervantes, DO [address] [place] [address] Arrived [facility] Comment on above: Arrived Start: 08-04-2024 End: 08-04-2024 ambulatory 08/04/2024 9:00 AM EST Initial [facility] [address] [facility] [place] [phone] [facility] Start: 08-04-2024 End: 08-04-2024 Professional / ancillary services management 08/04/2024 8:30 AM EST Ancillary Procedure [facility] [address] [facility] [place] [id number] [facility] Start: 07-12-2024 End: 07-12-2024 Patient encounter procedure 07/12/2024 8:30 AM EST Office Visit [facility] [address] [facility] [place] [id number] Latasha Padgett, PA [address] [facility] [place] [address] [facility] Start: 05-17-2024 End: 05-17-2024 Patient encounter procedure [facility] Comment on above: Arrived Start: 05-10-2024 End: 05-10-2024 Patient encounter procedure 05/10/2024 8:40 AM EST Office Visit [facility] [address] [facility] [place] [phone] Latasha Padgett, PA [address] [place] [address] [place] [address] [facility] Start: 01-30-2024 COVID-19 Vaccine ( season) COVID-19 Vaccine ( season) [facility] Start: 01-30-2024 Influenza vaccination Influenza Vacc ine (#1) [facility] Start: 08-19-2023 End: 08-19-2023 Patient encounter procedure 08/19/2023 11:00 AM EDT Routine [facility] [address] [facility] [place] [phone] Latasha Padgett PA [address] [place] [address] [facility] Start: 08-19-2023 End: 08-19-2023 Professional / ancillary services management 08/19/2023 10:00 AM EDT Ancillary Procedure [facility] [address] [place] [address] [facility] Start: 01-20-2023 End: 01-20-2023 Admission to same day surgery center 01/20/2023 Surgery IP Unit Mychal Nichols MD [address] [place] [address] HYSTEROSCOPY - IUD REMOVAL [facility] Comment on above: HYSTEROSCOPY - IUD R EMOVAL Start: 01-20-2023 End: 01-20-2023 Hysteroscopy removal impacted foreign body HYSTEROSCOPY Intrauterine contraceptive device threads lost, initial encounter 01/20/2023 11:10 AM EDT [facility] Start: 01-20-2023 Subsequent hospital visit by physician 01/20/2023 Hospital Encounter IP Unit Mychal Nichols MD [address] [facility] [address] [place] [address] [facility] Start: 12-29-2022 Influenza vaccination Flu vaccine (# 1) [facility] Start: 04-27-2022 End: 04-27-2022 Patient encounter procedure [facility] Start: 01-29-2022 Influenza vaccination [facility] Start: 02-07-2021 Cervical cancer screen Cervical canc er screen [facility]- [place], [place] Start: 02-07-2021 Screening for malign ant neoplasm of cervix [facility] Start: 01-29-2021 Influenza vaccination Flu vacc ine (Season Ended) [facility] Work Phone: Start: 09-30-2020 CBC W Auto Different ial panel - Blood [facility] Start: 09-30-2020 Lipid 1996 panel - Serum or Plasma LIPID PROFILE [facility] Start: 09-23-2020 [facility] Work Phone: Comment on above: Note: Please make a referral to: Start: 03-26-2020 SARS-CoV-2, KAILA [facility] Work Phone: Start: 03-19-2020 COVID Drive up Testing [facility] Work Phone: Start: 02-06-2020 Medical Establ ished Patient [facility] Work Phone: Start: 01-30-2020 Influenza vaccination Flu vaccine (# 1) [place] Start: 11-09-2019 Medical Establ ished Patient [facility] Work Phone: Start: 10-11-2019 Medical Establ ished Patient [facility] Work Phone: Start: 09-14-2019 Medical Establ ished Patient [facility] Work Phone: Start: 08-17-2019 Medical Establ ished Patient [facility] Work Phone: Start: 07-20-2019 Medical Establ ished Patient [facility] Work Phone: Start: 07-13-2019 Lipid 1996 panel [facility] Work Phone: Start: 02-14-2019 End: 02-14-2019 Office Visit 02/14/2019 Office Visit Obstetrics and Gynecology Pilar Marie APRN - [facility] [address] [place] [address] [phone] [facility] 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 Start: 02-07-2019 Chlamydia screen Chlamydia screen [place], [place] Start: 02-07-2019 Screening for Chlamy valentino trachomatis Chlamydia screen [facility] Start: 01-29-2019 Influenza vaccination Flu vaccine (# 1) [place], [place] Start: 10-29-2017 DTaP/Tdap/Td vaccine (2 - Td or Tdap) DTaP/Tdap/Td vaccine (2 - Td or Tdap) [facility] Start: 10-29-2017 DTaP/Tdap/Td vaccine (2 - Td) DTaP/Tdap/Td vaccine (2 - Td) [place] Start: 2015 Hepatitis B vaccine (1 of 3 - 19+ 3-dose series) Hepatitis B vaccine (1 of 3 - 19+ 3-dose series) [facility] Start: 2014 Hepatitis C screening Hepatitis C [facility] Start: 2012 COVID-19 Vaccine (1) COVID-19 Vaccin e (1) [facility] Work Phone: Start: 2011 HIV screen HIV screen [place], [place] Start: 2011 HIV screening HIV screen [facility] Start: 2011 HPV vaccine (1 - Fem shiela 3-dose series) HPV vaccine (1 - Female 3-dose series) [place], [place] Start: 2009 Varicella Vaccine (1 of 2 - 13+ 2-dose series) Varicella Vaccine (1 of 2 - 13+ 2-dose series) [facility] Start: 2008 COVID-19 Vaccine (1) COVID-19 Vaccin e (1) [facility] Phone: Start: 2008 Depression Screen Depression Screen [facility] Start: 2007 HPV vaccine (1 - 2-d ose series) HPV vaccine (1 - 2-dose series) [facility] Start: 2007 HPV vaccine (1 - Fem shiela 2-dose series) HPV vaccine (1 - Female 2-dose series) [facility] Phone: Start: 2001 COVID-19 Vaccine (1) COVID-19 Vaccin e (1) [facility] Start: 1997 Varicella vaccine (1 of 2 - 2-dose childhood series) Varicella vaccine (1 of 2 - 2-dose childhood series) [facility] Start: 1996 COVID-19 Vaccine (#1) COVID-19 Vacci ne (#1) [facility] Start: 1996 Hepatitis C screening Hepatitis C sc reemadan [employer] Phone: End: 10-17-2024 Alpha Fetoprotein, Maternal [employer] Phone: Comment on above: Once for 1 Occurrenc es starting 10/17/2024 until 10/17/2024 End: 12-16-2021 GLENNY Screen with [employer] Phone: Comment on above: Once for 1 Occurrenc es starting 12/16/2021 until 12/16/2021 CHLAMYDIA TRACHOMATI S (GENITO/STI) CHLAMYDIA TRACHOMATIS (GENITO/STI) Lab Routine STD exposure Vaginal discharge Ordered: 09/26/2024 [facility] [employer] Comment on above: Ordered: 09/26/2024 Cytology Cervical or vaginal smear or scraping study Pap Smear Pathology and Cytology Routine Well woman exam with routine gynecological exam Ordered: 09/26/2024 [facility] [employer] Comment on above: Ordered: 09/26/2024 End: 10-02-2021 Cytopathology procedure, preparation of smear, genital source PAP SMEAR Lab Routine Women's annual routine gynecological examination 1 Occurrences starting 10/02/2021 until 10/02/2021 [employer] Phone: Comment on above: 1 Occurrences starti ng 10/02/2021 until 10/02/2021 End: 01-01-2023 Cytopathology procedure, preparation of smear, genital source PAP SMEAR Lab Routine Women's annual routine gynecological examination 1 Occurrences starting 01/01/2023 until 01/01/2023 [employer] Phone: Comment on above: 1 Occurrences starti ng 01/01/2023 until 01/01/2023 End: 12-16-2021 HLA-B27 Antigen [employer] Phone: Comment on above: Once for 1 Occurrenc es starting 12/16/2021 until 12/16/2021 End: 07-06-2019 Insulin, free Insulin, free Lab Routine Once for 1 Occurrences starting 07/06/2019 until 07/06/2019 [employer] Phone: Comment on above: Once for 1 Occurrenc es starting 07/06/2019 until 07/06/2019 Insulin, free Insulin, free La b Routine 07/06/2019 9:31 AM [facility]YNN[facility] [employer] Work Phone: End: 12-16-2021 Lyme Ab [facility]TERROSO [facility] Work Phone: Comment on above: Once for 1 Occurrenc es starting 12/16/2021 until 12/16/2021 Neisseria gonorrhoea e DNA [Presence] in Unspecified specimen by KAILA with probe detection Neisseria gonorrhea DNA probe, direct Lab Routine STD exposure Vaginal discharge Ordered: 09/26/2024 [facility] Comment on above: Ordered: 09/26/2024 SURESWAB(R) ADVANCED VAGINITIS PLUS, TMA SURESWAB(R) ADVANCED VAGINITIS PLUS, TMA Pathology and Cytology Routine STD exposure Vaginal discharge Ordered: 09/26/2024 [facility] [employer] Work Phone: Comment on above: Ordered: 09/26/2024 End: 02-13-2025 US for US OB follow up transabdominal approach Imaging Routine Elevated glucose tolerance test Gestational diabetes mellitus (GDM), antepartum, gestational diabetes method of control unspecified ([facility]) q4 weeks for 4 Occurrences starting 12/13/2024 until 02/13/2025 [facility] Comment on above: q4 weeks for 4 Occur rences starting 12/13/2024 until 02/13/2025 Immunizations Immunization Date Immunization Notes Care Provider Em de la cruz 10-30-2007 tetanus toxoid, redu katelyn diphtheria toxoid, and acellular pertussis vaccine, adsorbed [facility] Payers Date Payer Category Payer Medicaid [id number] 2023 Medicaid [id number] 2023 Unknown [facility] [place] [employer] [id number] 2023-Present [address] [address] [place] [address] [id number] 2022 Unknown [employer] [address] [id number] 2022-Present [address] [place] [address] [id number] .[id number] 2018 Unknown [id number] [id number] 99.5.10.6.3 2016 Unknown [employer] QUANG RANDALL [address] xxxxxxxxxxxx 2016-Present [phone] [address] [place] [address] xxxxxxxxxxxx [id number] .[id number] 1996 Unknown [id number] 2.16.840.1.042074.3.579.2.175 1996 Unknown [id number] 2.16.840.1.771415.3.579.2.173 1996 Unknown [id number] 2.16.840.1.551773.3.579.2.125 9 1996 Unknown [id number] 2.16.840.1.138585.3.579.2.125 9 1996 Unknown [id number] 2.16.840.1.247623.3.579.2.125 9 1996 Unknown [id number] 2.16.840.1.146801.3.579.2.125 9 1996 Unknown [id number] 2.16.840.1.263684.3.579.2.125 9 1996 Unknown [id number] 2.16.840.1.235011.3.579.2.125 9 1996 Unknown [id number] 2.16.840.1.213867.3.579.2.125 9 1996 Unknown [id number] 2.16.840.1.943859.3.579.2.125 9 1996 Unknown [id number] 2.16.840.1.809038.3.579.2.125 9 1996 Unknown [id number] 2.16.840.1.190169.3.579.2.125 9 1996 Unknown [id number] 2.16.840.1.711285.3.579.2.125 9 1996 Unknown [id number] 2.16.840.1.629830.3.579.2.125 9 1996 Unknown [id number] 2.16.840.1.259151.3.579.2.125 9 1996 Unknown [id number] 2.16.840.1.997020.3.579.2.125 9 1996 Unknown [id number] 2.16.840.1.257938.3.579.2.125 9 1996 Unknown [id number] 2.16.840.1.624653.3.579.2.125 9 Unknown [id number] 2.16.840.1.740608.3.441 Social History Date Type Detail Facility [facility]ion [facility] Work Phone: Assertion Emotional stress (finding) [facility] Work Phone: Tobacco smoking status Unknown if ever smoked [facility] Assertion Sexually active (finding) [facility] Work Phone: Assertion Gender identity finding (finding) [facility] Work Phone: Assertion Finding of sexua l orientation (finding) [facility] Work Phone: Start: 02-07-2018 End: 01-06-2023 Tobacco smoking status MSIS Never smoker [place] Start: 02-07-2018 End: 01-20-2023 Alcohol intake Current drinker of alcohol (finding) [employer] Work Phone: Start: 12-12-2015 Alcohol Comment occassionally [employer] [facility] Start: 1996 [facility] Start: 04-08-2020 End: 01-06-2023 Tobacco use and exposure [facility] Exposure to SARS-CoV-2 (event) Not sure [facility] Start: 02-07-2018 End: 01-20-2023 Alcohol intake Yes [facility] Assertion Family illness (situation) [facility] Work Phone: Assertion Single person (finding) [facility] [employer] [facility] Work Phone: Start: *Tobacco [place] [employer] Start: 04-15-2023 [facility] Start: 01-20-2023 History of Social function [facility] [employer] Start: 10-12-2013 Sex Female (finding) [facility] [employer] NEGATED: Highlighted row Assertion Exposure to pollution (event) [facility] Work Phone: NEGATED: Highlighted row Assertion Tobacco user (finding) [facility] Work Phone: NEGATED: Highlighted row Assertion Current drinker of alcohol (finding) [facility] Work Phone: NEGATED: Highlighted row Assertion Finding relating to drug misuse behavior (finding) [facility] Work Phone: Mental Status Date Assessment Result Facility Cognitive function Cognitive fun ctioning was normal Cognitive function finding (finding) [facility] Work Phone: Clinical Notes 11-06-2019 to 02-06-2025 Lindsey Dong LPN - 02/06/2025 10:10 AM CAYLA Bartlett - 01/23/2025 9:50 AM Leatha Cervantes DO - 01/09/2025 11:10 AM CAYLA Bartlett - 12/27/2024 10:20 AM CAYLA Bartlett - 11/22/2024 1:50 PM EDT Note Date & Type Note Facility 02-06-2025 History of Presen t illness Narrative Reason [...] Excessive growth affecting management of mother, antepartum ([facility]) 12/06/2023 Third trimester ([facility]) 12/06/2023 No Additional Past Medical [...] nursing note reviewed. Exam conducted with a revenue agent present. Vitals: Estimated body mass index is 43.38 kg/m as calculated from the following: Height as of 24: 5' 7 . Weight as of this encounter: 277 lb. BP: 126/78 No LMP recorded. Patient is . ASSESSMENT & PLAN ICD-10-CM 1. Third trimester ([facility]) Z34.93 POCT urinalysis dipstick manually resulted CULTURE, GROUP B STREP WITH SUSCEPTIBLITY CULTURE, GROUP B STREP WITH SUSCEPTIBLITY 2. 36 weeks gestation of ([facility]) Z3A.36 Patient is doing well but has [...] Aditya Cervantes DO documented in this encounter [facility] 01-23-2025 History of Presen t illness Narrative [...] Excessive growth affecting management of mother, antepartum ([facility]) 12/06/2023 Third trimester ([facility]) 12/06/2023 No Additional Past Medical [...] ICD-10-CM 1. Third trimester ([facility]) Z34.93 CANCELED: POCT urinalysis dipstick manually resulted 2. 34 weeks gestation of ([facility]) Z3A.34 CANCELED: POCT urinalysis dipstick manually resulted [...] of: CAYLA Kwok documented in this encounter [facility] 01-09-2025 History of Presen t illness Narrative [...] Excessive growth affecting management of mother, antepartum ([facility]) 12/06/2023 Third trimester ([facility]) 12/06/2023 No Additional Past Medical [...] nursing note reviewed. Exam conducted with a revenue agent present. Vitals: Estimated body mass index is 42.88 kg/m as calculated from the following: Height as of 01/10/24: 5' 7 . Weight as of 12/27/24: 273 lb 12.8 oz. BP: No LMP recorded. Patient is . Assessment/Plan Encounter Diagnosis: ICD-10-CM 1. Third trimester ([facility]) Z34.93 POCT urinalysis dipstick manually resulted 2. 32 weeks gestation of ([facility]) Z3A.32 3. Gestational diabetes mellitus (GDM), antepartum, gestational diabetes method of control unspecified ([facility]) O24.419 4. Hyperglycemia during ([facility]) O99.810 US biophysical profile w [...] Aditya Cervantes DO documented in this encounter [facility] 12-27-2024 History of Presen t illness Narrative [...] Excessive growth affecting management of mother, antepartum ([facility]) 12/06/2023 Third trimester ([facility]) 12/06/2023 No Additional Past Medical [...] nursing note reviewed. Exam conducted with a revenue agent present. Vitals: Estimated body mass index is 42.88 kg/m as calculated from the following: Height as of 01/10/24: 5' 7 . Weight as of this encounter: 273 lb 12.8 oz. BP: 122/74 No LMP recorded. Patient is . ASSESSMENT & PLAN ICD-10-CM 1. Third trimester ([facility]) Z34.93 POCT urinalysis dipstick manually resulted Return [...] routine OB appointment. documented in this encounter [facility] 12-13-2024 History of Presen t illness Narrative [...] Excessive growth affecting management of mother, antepartum ([facility]) 12/06/2023 Third trimester ([facility]) 12/06/2023 No Additional Past Medical [...] of gestational diabetes Z86.32 3. Third trimester ([facility]) Z34.93 POCT urinalysis dipstick manually resulted 4. 28 weeks gestation of ([facility]) Z3A.28 POCT urinalysis dipstick manually [...] Aditya Cervantes DO documented in this encounter [facility] 11-22-2024 History of Presen t illness Narrative [...] Excessive growth affecting management of mother, antepartum ([facility]) 12/06/2023 Third trimester ([facility]) 12/06/2023 No Additional Past Medical [...] PLAN ICD-10-CM 1. 25 weeks gestation of ([facility]) Z3A.25 POCT urinalysis dipstick manually resulted 2. Second trimester ([facility]) Z34.92 POCT urinalysis dipstick manually [...] Aditya Cervantes DO documented in this encounter [facility] 10-25-2024 History of Presen t illness Narrative [...] of: CAYLA Kwok documented in this encounter [facility] 09-26-2024 History of Presen t illness Narrative [...] nursing note reviewed. Exam conducted with a revenue agent present. Vitals: Estimated body mass index is 41.62 kg/m as calculated from the following: Height as of 8/12/24: 5' 7 . Weight as of this [...] Aditya Cervantes DO documented in this encounter [facility] 08-29-2024 History of Presen t illness Narrative [...] nursing note reviewed. Exam conducted with a revenue agent present. Vitals: Estimated body mass index is [...] or undercooked meat, and stay away from [facility]. Patient has been consulted regarding any further do's and don'ts of . Patient voiced understanding and all questions and concerns were answered. Orders Placed This Encounter Procedures POCT urinalysis dipstick manually resulted Follow Up: Patient is to return in 4 weeks for routine OB appointment. Documented by Lindsey Dong LPN on behalf of: Aditya Cervantes DO documented in this encounter [facility] 06-14-2024 History of Presen t illness Narrative [...] of: CAYLA Kwok documented in this encounter [facility] 05-17-2024 History of Presen t illness Narrative [...] of CAYLA Kwok documented in this encounter [facility] 04-18-2024 History of Presen t illness Narrative [...] of: CAYLA Kwok documented in this encounter [facility] 02-21-2024 History of Presen t illness Narrative [...] of: CAYLA Kwok documented in this encounter [facility] 07-15-2023 History of Presen t illness Narrative [...] Aditya Cervantes DO documented in this encounter [facility] 09-23-2020 Evaluation note Includes: Assessments for all patient encounters Findings Anxiety disorder NOS [facility] with Jammie RODAS 09/23/2020 Assessment of visit for: screening for human immunodeficiency virus Medical Established Patient with Miguel Holley [facility] 09/23/2020 Diabetes Risk Test Score was three score 09/23/2020 Medical Established Patient with Miguel Holley [facility] 09/23/2020 Morbid obesity Medical Established Patient with Miguel Holley [facility] 09/23/2020 Routine adult history and physical (18-64 yrs) without abnormal findings Medical Established Patient with Miguel Holley [facility] 09/23/2020 Z68.41 - Body mass index [BMI]40.0-44.9, adult Medical Established Patient with Miguel Holley [facility] IN CHARGE 09/23/2020 Cough Telemedicine Establi sted Patient with Miguel Holley [facility] 03/19/2020 Exposure to a viral disease Telemedicine Establisted Patient with Miguel Holley [facility] 03/19/2020 Obesity due to excess calories Telemedic ine Establisted Patient with Miguel Holley [facility] 03/19/2020 Z68.37 - Body mass index [BM I] 37.0-37.9, adult Telemedicine Establisted Patient with Miguel Holley EXTENSION SERVICE SPECIALIST IN CHARGE 03/19/2020 Obesity due to excess calories Medical E stablished Patient with Miguel Holley [facility] 03/05/2020 Z68.37 - Body mass index [BM I] 37.0-37.9, adult Medical Established Patient with Miguel Holley [facility] 03/05/2020 Obesity due to excess calories Medical E stablished Patient with Poly Wagonerle [facility]ION SERVICE SPECIALIST IN CHARGE 12/05/2019 R21 - Rash and other nonspecific skin eruption Medical Established Patient with Poly Salvador EXTENSION SERVICE SPECIALIST IN CHARGE 12/05/2019 Z68.35 - Body mass index (BM I) 35.0-35.9, adult Medical Established Patient with Poly Salvador EXTENSION SERVICE SPECIALIST IN CHARGE 12/05/2019 Obesity due to excess calories Medical E stablished Patient with Poly Salvador EXTENSION SERVICE SPECIALIST IN CHARGE 11/06/2019 Z68.36 - Body mass index (BM I) 36.0-36.9, adult Medical Established Patient with Poly Salvador EXTENSION SERVICE SPECIALIST IN CHARGE 11/06/2019 Obesity due to excess calories Medical E stablished Patient with Poly Salvador EXTENSION SERVICE SPECIALIST IN CHARGE 10/12/2019 Z68.38 - Body mass index (BM I) 38.0-38.9, adult Medical Established Patient with Poyl Salvador EXTENSION SERVICE SPECIALIST IN CHARGE 10/12/2019 L25.5 - Unspecified contact dermatitis due to plants, except food Medical Established Patient with Poly Salvador EXTENSION SERVICE SPECIALIST IN CHARGE 09/14/2019 Obesity due to excess calories Medical E stablished Patient with Poly Salvador EXTENSION SERVICE SPECIALIST IN CHARGE 09/14/2019 Z68.37 - Body mass index (BM I) 37.0-37.9, adult Medical Established Patient with Poly Salvador EXTENSION SERVICE SPECIALIST IN CHARGE 09/14/2019 L25.5 - Unspecified contact dermatitis due to plants, except food Telemedicine with Poly Salvador EXTENSION SERVICE SPECIALIST IN CHARGE 09/11/2019 Obesity due to excess calories Telemedic ine with Poly Franco EXTENSION SERVICE SPECIALIST IN CHARGE 09/11/2019 Z68.37 - Body mass index (BM I) 37.0-37.9, adult Telemedicine with Poly Franco EXTENSION SERVICE SPECIALIST IN CHARGE 09/11/2019 Dermatitis due to contact wi th poison spencer Telemedicine with Poly Franco EXTENSION SERVICE SPECIALIST IN CHARGE 09/05/2019 Obesity due to excess calories Telemedic ine with Poly Franco EXTENSION SERVICE SPECIALIST IN CHARGE 09/05/2019 Z68.37 - Body mass index (BM I) 37.0-37.9, adult Telemedicine with Poly Franco EXTENSION SERVICE SPECIALIST IN CHARGE 09/05/2019 Obesity due to excess calories Medical E stablished Patient with Miguel Holley EXTENSION SERVICE SPECIALIST IN CHARGE 08/17/2019 Z68.37 - Body mass index (BM I) 37.0-37.9, adult Medical Established Patient with Miguel Holley EXTENSION SERVICE SPECIALIST IN CHARGE 08/17/2019 Generalized anxiety disorder BH Establis hed Patient with Anh VIDAL 07/06/2019 Anxiety disorder NOS Medical New Patient with Allyson Floyd EXTENSION SERVICE SPECIALIST IN CHARGE 07/06/2019 Depression Medical New Patient with Allyson Floyd EXTENSION SERVICE SPECIALIST IN CHARGE 07/06/2019 Diabetes Risk Test Score was one score Medical New Patient with Allyson Everett EXTENSION SERVICE SPECIALIST IN CHARGE 07/06/2019 Idiopathic insomnia Medical New Patient with Allyson Nye EXTENSION SERVICE SPECIALIST IN CHARGE 07/06/2019 Obesity due to excess calories Medical N ew Patient with Allyson Everett EXTENSION SERVICE SPECIALIST IN CHARGE 07/06/2019 Z68.39 - Body mass index (BM I) 39.0-39.9 adult Medical New Patient with Allyson Floyd EXTENSION SERVICE SPECIALIST IN CHARGE 07/06/2019 [facility] Work Phone: [phone] 208-226506-08-2020 History general Narrative - Reported Includes: Medical History in patient's chart Description Last Updated Not currently nursing 11/06/2019 Not 11/06/2019 No reported medical history or no signif icant history 07/06/2019 [facility] Work Phone: Evaluation note Includes: Assessments for all patient encounters Findings Encounter Date Assessment of visit for: cristóbal montoya for human immunodeficiency virus Medical Established Patient with Miguel Holley EXTENSION SERVICE SPECIALIST IN CHARGE 09/23/2020 Diabetes Risk Test Score was three score 09/23/2020 Medical Established Patient with Miguel Holley EXTENSION SERVICE SPECIALIST IN CHARGE 09/23/2020 Morbid obesity Medical Established Patient with Miguel Holley EXTENSION SERVICE SPECIALIST IN CHARGE 09/23/2020 Routine adult history and ph ysical (18-64 yrs) without abnormal findings Medical Established Patient with Miguel Holley CNP 09/23/2020 Z68.41 - Body mass index [BMI]40.0-44.9, adult Medical Established Patient with Miguel Holley EXTENSION SERVICE SPECIALIST IN CHARGE 09/23/2020 Cough Telemedicine Establi sted Patient with Miguel Holley [facility] 03/19/2020 Exposure to a viral disease Telemedicine Establisted Patient with Miguel Holley [facility] 03/19/2020 Obesity due to excess calories Telemedic ine Establisted Patient with Miguel Holley EXTENSION SERVICE SPECIALIST IN CHARGE 03/19/2020 Z68.37 - Body mass index [BM I] 37.0-37.9, adult Telemedicine Establisted Patient with Miguel Holley [facility] 03/19/2020 Obesity due to excess calories Medical E stablished Patient with Miguel Holley EXTENSION SERVICE SPECIALIST IN CHARGE 03/05/2020 Z68.37 - Body mass index [BM I] 37.0-37.9, adult Medical Established Patient with Miguel Holley [facility] 03/05/2020 Obesity due to excess calories Medical E stablished Patient with Poly Franco [facility] 12/05/2019 R21 - [facility] Patient with Poly Salvador EXTENSION SERVICE SPECIALIST IN CHARGE 12/05/2019 Z68.35 - Body mass index (BM I) 35.0-35.9, adult Medical Established Patient with Poly Salvador EXTENSION SERVICE SPECIALIST IN CHARGE 12/05/2019 Obesity due to excess calories Medical E stablished Patient with Poly Salvador [facility] 11/06/2019 Z68.36 - Body mass index (BM I) 36.0-36.9, adult Medical Established Patient with Poly Salvador EXTENSION SERVICE SPECIALIST IN CHARGE 11/06/2019 Obesity due to excess calories Medical E stablished Patient with Poly Salvador [facility] 10/12/2019 Z68.38 - Body mass index (BM I) 38.0-38.9, adult Medical Established Patient with Poly Salvador [facility] 10/12/2019 L25.5 - Unspecified contact dermatitis due to plants, except food Medical Established Patient with Poly Salvador EXTENSION SERVICE SPECIALIST IN CHARGE 09/14/2019 Obesity due to excess calories Medical E stablished Patient with Poly Salvadro [facility] 09/14/2019 Z68.37 - Body mass index (BM I) 37.0-37.9, adult Medical Established Patient with Poly Franco EXTENSION SERVICE SPECIALIST IN CHARGE 09/14/2019 L25.5 - Unspecified contact dermatitis due to plants, except food Telemedicine with Poly Franco EXTENSION SERVICE SPECIALIST IN CHARGE 09/11/2019 Obesity due to excess calories Telemedicine with Poly Franco EXTENSION SERVICE SPECIALIST IN CHARGE 09/11/2019 Z68.37 - Body mass index (BM I) 37.0-37.9, adult Telemedicine with Poly Franco EXTENSION SERVICE SPECIALIST IN CHARGE 09/11/2019 Dermatitis due to contact wi th poison spencer Telemedicine with Poly Franco EXTENSION SERVICE SPECIALIST IN CHARGE 09/05/2019 Obesity due to excess calories Telemedicine with Poly Franco EXTENSION SERVICE SPECIALIST IN CHARGE 09/05/2019 Z68.37 - Body mass index (BM I) 37.0-37.9, adult Telemedicine with Poly Franco EXTENSION SERVICE SPECIALIST IN CHARGE 09/05/2019 Obesity due to excess calories Medical E stablished Patient with Miguel Holley [facility] 08/17/2019 Z68.37 - Body mass index (BM I) 37.0-37.9, adult Medical Established Patient with Miguel Holley EXTENSION SERVICE SPECIALIST IN CHARGE 08/17/2019 Generalized anxiety disorder BH Establis hed Patient with Anh VIDAL 07/06/2019 Anxiety disorder NOS Medical New Patient with Allyson Everett EXTENSION SERVICE SPECIALIST IN CHARGE 07/06/2019 Depression Medical New Patient with Allyson Everett EXTENSION SERVICE SPECIALIST IN CHARGE 07/06/2019 Diabetes Risk Test Score was one score M edical New Patient with Allyson Reasnor EXTENSION SERVICE SPECIALIST IN CHARGE 07/06/2019 Idiopathic insomnia Medical New Patient with Allyson Reasnor EXTENSION SERVICE SPECIALIST IN CHARGE 07/06/2019 Obesity due to excess calories Medical N ew Patient with Allyson Everett EXTENSION SERVICE SPECIALIST IN CHARGE 07/06/2019 Z68.39 - Body mass index (BM I) 39.0-39.9 adult Medical New Patient with Allyson Nye EXTENSION SERVICE SPECIALIST IN CHARGE 07/06/2019 [facility] Work Phone: Evaluation note* Diagnosis Nausea vomiting and diarrhea- Primary Nausea with vomiting Generalized abdominal pain Abdominal pain, generalized documented in this encounter [facility] Phone: evaluation note* Diagnosis Women's annual routine gynecological examination documented in this encounter [facility] Phone: evaluation note* Diagnosis Women's annual routine gynecological examination Intrauterine contraceptive device threads lost, initial encounter [facility] Second trimester state, incidental [...] of (HHS-HCC) [facility] Diagnosis Third trimester (HHS-HCC) state, incidental 36 weeks gestation of (HHS-HCC) [facility] Narrative History of Present Illness not supported for this document type No History of Present Illness [facility] Work Phone: Hospital Discharge instructions* Attachments The following attachments cannot be sent through Care Everywhere. * Abdominal Pain ([place]ivian) * Nausea and Vomiting ([place]ian) * [facility]) [facility] Inst[facility] Instructions not supported for this document type No Instructions [facility] Work Phone: Patient problem outcome Narrative Includes: Evaluations & Outcomes for active Goals No Outcomes [facility] Work Phone: Reason for referral (narrative)No Reason for Referral [facility] Work Phone: Review of systems Narrative - Reported Review of Systems not supported for this document type No Review of Systems [facility] Work Phone: Summary Purpose Family History Description Last Updated Maternal history of rheumatoid arthritis 07/06/2019 Maternal history of rheumatologic disord er Fibromyalgia 07/06/2019 Maternal history of systemic lupus eryth ematosus 07/06/2019 Paternal history of type 1 diabetes marino itus 07/06/2019 Advance Directives Documents on File Type Date Recorded Patient Clinical Medical Transcriptionist Expl anation Advance Directives and Living Will Power of Adult Basic Studies Teacher Documents on File Type Date Recorded Patient Clinical Medical Transcriptionist Expl anation ACP-Advance Directive ACP-Power of Adult Basic Studies Teacher Documents on File Type Date Recorded Patient Clinical Medical Transcriptionist Expl anation Advance Directives and Living Will Power of Adult Basic Studies Teacher Date Activated Date Inactivated Comments 01/20/2023 7:21 [...] NOS Medical New Patient with Allyson Floyd EXTENSION SERVICE SPECIALIST IN CHARGE 07/06/2019 Depression Medical New Patient with Allyson Floyd EXTENSION SERVICE SPECIALIST IN CHARGE 07/06/2019 Diabetes Risk Test Score was one score Medical New Patient with Allyson Floyd EXTENSION SERVICE SPECIALIST IN CHARGE 07/06/2019 Idiopathic insomnia Medical New Patient with Allyson Floyd EXTENSION SERVICE SPECIALIST IN CHARGE 07/06/2019 Obesity due to excess calories Medical N ew Patient with Allyson Floyd EXTENSION SERVICE SPECIALIST IN CHARGE 07/06/2019 Z68.39 - Body mass index (BM I) 39.0-39.9 adult Medical New Patient with Allyson Floyd EXTENSION SERVICE SPECIALIST IN CHARGE 07/06/2019 Findings Encounter Date Obesity due to excess calories Medical E stablished Patient with Poly Franco [facility] 10/12/2019 Z68.38 - Body mass index (BM I) 38.0-38.9, adult Medical Established Patient with Poly Wagonerle [facility] 10/12/2019 L25.5 - Unspecified contact dermatitis due to plants, except food Medical Established Patient with Poly Wagonerle [facility] 09/14/2019 Obesity due to excess calories Medical E stablished Patient with Poly Wagonerle [facility] 09/14/2019 Z68.37 - Body mass index (BM I) 37.0-37.9, adult Medical Established Patient with Poly Wagonerle [facility] 09/14/2019 L25.5 - Unspecified contact dermatitis due to plants, except food Telemedicine with Poly Wagonerle [facility] 09/11/2019 Obesity due to excess calories Telemedicine with Poly Wagonerle [facility] 09/11/2019 Z68.37 - Body mass index (BM I) 37.0-37.9, adult Telemedicine with Poly Wagonerle [facility] 09/11/2019 Dermatitis due to contact wi th poison spencer Telemedicine with Poly Wagonerle [facility] 09/05/2019 Obesity due to excess calories Telemedicine with Poly Salvador [facility] 09/05/2019 Z68.37 - Body mass index (BM I) 37.0-37.9, adult Telemedicine with Poly Wagonerle [facility] 09/05/2019 Obesity due to excess calories Medical E stablished Patient with Miguel Holley [facility] 08/17/2019 Z68.37 - Body mass index (BM I) 37.0-37.9, adult Medical Established Patient with Miguel Dell EXTENSION SERVICE SPECIALIST IN CHARGE 08/17/2019 Generalized anxiety disorder BH Establis hed Patient with Anh Virk [employer] 07/06/2019 Anxiety disorder NOS Medical New Patient with Allyson Reasnor EXTENSION SERVICE SPECIALIST IN CHARGE 07/06/2019 Depression Medical New Patient with Allyson Reasnor EXTENSION SERVICE SPECIALIST IN CHARGE 07/06/2019 Diabetes Risk Test Score was one score Medical New Patient with Allyson Reasnor EXTENSION SERVICE SPECIALIST IN CHARGE 07/06/2019 Idiopathic insomnia Medical New Patient with Allyson Reasnor EXTENSION SERVICE SPECIALIST IN CHARGE 07/06/2019 Obesity due to excess calories Medical N ew Patient with Allyson Reasnor EXTENSION SERVICE SPECIALIST IN CHARGE 07/06/2019 Z68.39 - Body mass index (BM I) 39.0-39.9 adult Medical New Patient with Allyson Everett EXTENSION SERVICE SPECIALIST IN CHARGE 07/06/2019 Findings Encounter Date Obesity due to excess calories Medical E stablished Patient with Miguel Dell EXTENSION SERVICE SPECIALIST IN CHARGE 08/17/2019 Z68.37 - Body mass index (BM I) 37.0-37.9, adult Medical Established Patient with Miguel Dell EXTENSION SERVICE SPECIALIST IN CHARGE 08/17/2019 Generalized anxiety disorder BH Establis hed Patient with Anhbrad Virk [employer] 07/06/2019 Anxiety disorder NOS Medical New Patient with Allyson Reasnor EXTENSION SERVICE SPECIALIST IN CHARGE 07/06/2019 Depression Medical New Patient with Allyson Everett EXTENSION SERVICE SPECIALIST IN CHARGE 07/06/2019 Diabetes Risk Test Score was one score Medical New Patient with Allyson Everett EXTENSION SERVICE SPECIALIST IN CHARGE 07/06/2019 Idiopathic insomnia Medical New Patient with Allyson Reasnor EXTENSION SERVICE SPECIALIST IN CHARGE 07/06/2019 Obesity due to excess calories Medical N ew Patient with Allyson Everett EXTENSION SERVICE SPECIALIST IN CHARGE 07/06/2019 Z68.39 - Body mass index (BM I) 39.0-39.9 adult Medical New Patient with Allyson Reasnor EXTENSION SERVICE SPECIALIST IN CHARGE 07/06/2019 Findings Encounter Date Dermatitis due to contact wi th poison spencer Telemedicine with Poly Salvador EXTENSION SERVICE SPECIALIST IN CHARGE 09/05/2019 Obesity due to excess calories Telemedicine with Poly Salvador EXTENSION SERVICE SPECIALIST IN CHARGE 09/05/2019 Z68.37 - Body mass index (BM I) 37.0-37.9, adult Telemedicine with Poly Salvador EXTENSION SERVICE SPECIALIST IN CHARGE 09/05/2019 Obesity due to excess calories Medical E stablished Patient with Miguel Dell EXTENSION SERVICE SPECIALIST IN CHARGE 08/17/2019 Z68.37 - Body mass index (BM I) 37.0-37.9, adult Medical Established Patient with Miguel Holley EXTENSION SERVICE SPECIALIST IN CHARGE 08/17/2019 Generalized anxiety disorder BH Establis hed Patient with Anh RODAS-S 07/06/2019 Anxiety disorder NOS Medical New Patient with Allyson Nye EXTENSION SERVICE SPECIALIST IN CHARGE 07/06/2019 Depression Medical New Patient with Allyson Everett EXTENSION SERVICE SPECIALIST IN CHARGE 07/06/2019 Diabetes Risk Test Score was one score Medical New Patient with Allyson Everett EXTENSION SERVICE SPECIALIST IN CHARGE 07/06/2019 Idiopathic insomnia Medical New Patient with Allyson Everett EXTENSION SERVICE SPECIALIST IN CHARGE 07/06/2019 Obesity due to excess calories Medical N ew Patient with Allyson Reasnor EXTENSION SERVICE SPECIALIST IN CHARGE 07/06/2019 Z68.39 - Body mass index (BM I) 39.0-39.9 adult Medical New Patient with Allyson Floyd EXTENSION SERVICE SPECIALIST IN CHARGE 07/06/2019 Findings Encounter Date L25.5 - Unspecified contact dermatitis due to plants, except food [facility] due to excess calories [facility] Z68.37 - Body mass index (BM I) 37.0-37.9, adult Telemedicine with Poly [facility] 09/11/2019 Dermatitis due to contact wi th poison spencer Telemedicine with Poly [facility] 09/05/2019 Obesity due to excess calories Telemedicine with Poly [facility] 09/05/2019 Z68.37 - Body mass index (BM I) 37.0-37.9, adult Telemedicine with Poly [facility] 09/05/2019 Obesity due to excess calories Medical E stablished Patient with Miguel Holley [facility] 08/17/2019 Z68.37 - Body mass index (BM I) 37.0-37.9, adult Medical Established Patient with Miguelcristal Holley EXTENSION SERVICE SPECIALIST IN CHARGE 08/17/2019 Generalized anxiety disorder BH Establis hed Patient with Anh RODAS-S 07/06/2019 Anxiety disorder NOS Medical New Patient with Allyson Everett EXTENSION SERVICE SPECIALIST IN CHARGE 07/06/2019 Depression Medical New Patient with Allyson Everett EXTENSION SERVICE SPECIALIST IN CHARGE 07/06/2019 Diabetes Risk Test Score was one score Medical New Patient with Allyson Everett EXTENSION SERVICE SPECIALIST IN CHARGE 07/06/2019 Idiopathic insomnia Medical New Patient with Allyson Everett EXTENSION SERVICE SPECIALIST IN CHARGE 07/06/2019 Obesity due to excess calories Medical N ew Patient with Allyson Everett EXTENSION SERVICE SPECIALIST IN CHARGE 07/06/2019 Z68.39 - Body mass index (BM I) 39.0-39.9 adult Medical New Patient with Allyson Floyd EXTENSION SERVICE SPECIALIST IN CHARGE 07/06/2019 Findings Encounter Date L25.5 - Unspecified contact dermatitis due to plants, except food Medical Established Patient with Poly Franco EXTENSION SERVICE SPECIALIST IN CHARGE 09/14/2019 Obesity due to excess calories Medical E stablished Patient with Poly Wagonerle [facility] 09/14/2019 Z68.37 - Body mass index (BM I) 37.0-37.9, adult Medical Established Patient with Poly Franco [facility] 09/14/2019 L25.5 - Unspecified contact dermatitis due to plants, except food Telemedicine with Poly Franco [facility] 09/11/2019 Obesity due to excess calories Telemedicine with Poly Franco [facility] 09/11/2019 Z68.37 - Body mass index (BM I) 37.0-37.9, adult Telemedicine with Poly Franco [facility] 09/11/2019 Dermatitis due to contact wi th poison spencer Telemedicine with Poly Franco [facility] 09/05/2019 Obesity due to excess calories Telemedicine with Poly Franco [facility] 09/05/2019 Z68.37 - Body mass index (BM I) 37.0-37.9, adult Telemedicine with Poly Franco [facility] 09/05/2019 Obesity due to excess calories Medical E stablished Patient with Miguel Holley [facility] 08/17/2019 Z68.37 - Body mass index (BM I) 37.0-37.9, adult Medical Established Patient with Miguel Holley [facility] 08/17/2019 Generalized anxiety disorder BH Establis hed Patient with Anh VIDAL 07/06/2019 Anxiety disorder NOS Medical New Patient with Allyson Reasnor EXTENSION SERVICE SPECIALIST IN CHARGE 07/06/2019 Depression Medical New Patient with Allyson Everett EXTENSION SERVICE SPECIALIST IN CHARGE 07/06/2019 Diabetes Risk Test Score was one score Medical New Patient with Allyson Everett EXTENSION SERVICE SPECIALIST IN CHARGE 07/06/2019 Idiopathic insomnia Medical New Patient with Allyson Reasnor EXTENSION SERVICE SPECIALIST IN CHARGE 07/06/2019 Obesity due to excess calories Medical N ew Patient with Allyson Reasnor EXTENSION SERVICE SPECIALIST IN CHARGE 07/06/2019 Z68.39 - Body mass index (BM I) 39.0-39.9 adult Medical New Patient with Allyson Reasnor EXTENSION SERVICE SPECIALIST IN CHARGE 07/06/2019 Findings Encounter Date Obesity due to excess calories Medical E stablished Patient with Polykamryn Wagonerle EXTENSION SERVICE SPECIALIST IN CHARGE 11/06/2019 Z68.36 - Body mass index (BM I) 36.0-36.9, adult Medical Established Patient with Poly Franco EXTENSION SERVICE SPECIALIST IN CHARGE 11/06/2019 Obesity due to excess calories Medical E stablished Patient with Poly Wagonerle EXTENSION SERVICE SPECIALIST IN CHARGE 10/12/2019 Z68.38 - Body mass index (BM I) 38.0-38.9, adult Medical Established Patient with Poly Wagonerle [facility] 10/12/2019 L25.5 - Unspecified contact dermatitis due to plants, except food Medical Established Patient with Poly Wagonerle EXTENSION SERVICE SPECIALIST IN CHARGE 09/14/2019 Obesity due to excess calories Medical E stablished Patient with Polykamryn Wagonerle [facility] 09/14/2019 Z68.37 - Body mass index (BM I) 37.0-37.9, adult Medical Established Patient with Poly Franco [facility] 09/14/2019 L25.5 - Unspecified contact dermatitis due to plants, except food Telemedicine with Poly Franco [facility] 09/11/2019 Obesity due to excess calories [facility] Z68.37 - Body mass index (BM I) 37.0-37.9, adult [facility] Dermatitis due to contact wi th poison spencer Telemedicine with Poly Franco [facility] 09/05/2019 Obesity due to excess calories Telemedicine with Poly Franco [facility] 09/05/2019 Z68.37 - Body mass index (BM I) 37.0-37.9, adult Telemedicine with Poly Franco [facility] 09/05/2019 Obesity due to excess calories Medical E stablished Patient with Miguel Holley [facility] 08/17/2019 Z68.37 - Body mass index (BM I) 37.0-37.9, adult Medical Established Patient with Miguelcristal Anguloen [facility] 08/17/2019 Generalized anxiety disorder BH Establis hed Patient with Anh VIDAL 07/06/2019 Anxiety disorder NOS Medical New Patient with Allyson Reasnor EXTENSION SERVICE SPECIALIST IN CHARGE 07/06/2019 Depression Medical New Patient with Allyson Everett EXTENSION SERVICE SPECIALIST IN CHARGE 07/06/2019 Diabetes Risk Test Score was one score Medical New Patient with Allyson Reasnor EXTENSION SERVICE SPECIALIST IN CHARGE 07/06/2019 Idiopathic insomnia Medical New Patient with Allyson Reasnor EXTENSION SERVICE SPECIALIST IN CHARGE 07/06/2019 Obesity due to excess calories Medical N ew Patient with Allyson Reasnor EXTENSION SERVICE SPECIALIST IN CHARGE 07/06/2019 Z68.39 - Body mass index (BM I) 39.0-39.9 adult Medical New Patient with Allyson Floyd EXTENSION SERVICE SPECIALIST IN CHARGE 07/06/2019 Findings Encounter Date Obesity due to excess calories Medical E stablished Patient with Poly Franco EXTENSION SERVICE SPECIALIST IN CHARGE 12/05/2019 R21 - [facility] Patient with Poly Wagonerle EXTENSION SERVICE SPECIALIST IN CHARGE 12/05/2019 Z68.35 - Body mass index (BM I) 35.0-35.9, adult Medical Established Patient with Poly Wagonerle EXTENSION SERVICE SPECIALIST IN CHARGE 12/05/2019 Obesity due to excess calories Medical E stablished Patient with Poly Salvador EXTENSION SERVICE SPECIALIST IN CHARGE 11/06/2019 Z68.36 - Body mass index (BM I) 36.0-36.9, adult Medical Established Patient with Poly Wagonerle [facility] SPECIALIST IN CHARGE 11/06/2019 Obesity due to excess calories Medical E stablished Patient with Poly Wagonerle [employer] [employer]ICE SPECIALIST IN CHARGE 10/12/2019 Z68.38 - Body mass index (BM I) 38.0-38.9, adult Medical Established Patient with Polykamryn Wagonerle [facility] 10/12/2019 L25.5 - Unspecified contact dermatitis due to plants, except food Medical Established Patient with Poly Wagonerle [employer]ION SERVICE SPECIALIST IN CHARGE 09/14/2019 Obesity due to excess calories Medical E stablished Patient with Poly Salvador [facility] 09/14/2019 Z68.37 - Body mass index (BM I) 37.0-37.9, adult Medical Established Patient with Poly Wagonerle [employer] SERVICE SPECIALIST IN CHARGE 09/14/2019 L25.5 - Unspecified contact dermatitis due to plants, except food Telemedicine with Poly W[facility]le [facility] 09/11/2019 Obesity due to excess calories Telemedicine with Poly Salvador [facility] 09/11/2019 Z68.37 - Body mass index (BM I) 37.0-37.9, adult Telemedicine with Poly [place] [facility] 09/11/2019 Dermatitis due to contact wi th poison spencer Telemedicine with Poly W[place] [facility] 09/05/2019 Obesity due to excess calories Telemedicine with Poly Salvador [facility] 09/05/2019 Z68.37 - Body mass index (BM I) 37.0-37.9, adult Telemedicine with Poly Wagonerle [employer] SERVICE SPECIALIST IN CHARGE 09/05/2019 Obesity due to excess calories Medical E stablished Patient with Miguel Holley [facility] 08/17/2019 Z68.37 - Body mass index (BM I) 37.0-37.9, adult Medical Established Patient with Miguel Holley EXTENSION SERVICE SPECIALIST IN CHARGE 08/17/2019 Generalized anxiety disorder BH Establis hed Patient with Anh VIDAL 07/06/2019 Anxiety disorder NOS Medical New Patient with Allyson Floyd [employer]ION SERVICE SPECIALIST IN CHARGE 07/06/2019 Depression Medical New Patient with Allyson Floyd EXTENSION SERVICE SPECIALIST IN CHARGE 07/06/2019 Diabetes Risk Test Score was one score Medical New Patient with Allyson Floyd EXTENSION SERVICE SPECIALIST IN CHARGE 07/06/2019 Idiopathic insomnia Medical New Patient with Allyson Floyd EXTENSION SERVICE SPECIALIST IN CHARGE 07/06/2019 Obesity due to excess calories Medical N ew Patient with Allyson Floyd EXTENSION SERVICE SPECIALIST IN CHARGE 07/06/2019 Z68.39 - Body mass index (BM I) 39.0-39.9 adult Medical New Patient with Allyson Floyd EXTENSION SERVICE SPECIALIST IN CHARGE 07/06/2019 Findings Encounter Date Obesity due to excess calories Medical E stablished Patient with Miguel Holley EXTENSION SERVICE SPECIALIST IN CHARGE 03/05/2020 Z68.37 - Body mass index [BM I] 37.0-37.9, adult Medical Established Patient with Miguel Holley EXTENSION SERVICE SPECIALIST IN CHARGE 03/05/2020 Obesity due to excess calories Medical E stablished Patient with Poly Salvador EXTENSION SERVICE SPECIALIST IN CHARGE 12/05/2019 R21 - Rash and other nonspec [facility] skin eruption Medical Established Patient with Poly Salvador EXTENSION SERVICE SPECIALIST IN CHARGE 12/05/2019 Z68.35 - Body mass index (BM I) 35.0-35.9, adult Medical Established Patient with Poly Salvador [employer]TENSION SERVICE SPECIALIST IN CHARGE 12/05/2019 Obesity due to excess calories Medical E stablished Patient with Poly Salvador EXTENSION SERVICE SPECIALIST IN CHARGE 11/06/2019 Z68.36 - Body mass index (BM I) 36.0-36.9, adult Medical Established Patient with Poly Salvador EXTENSION SERVICE SPECIALIST IN CHARGE 11/06/2019 Obesity due to excess calories Medical E stablished Patient with Poly Salvador [employer]TENSION SERVICE SPECIALIST IN CHARGE 10/12/2019 Z68.38 - Body mass index (BM I) 38.0-38.9, adult Medical Established Patient with Poly Salvador [employer]TENSION SERVICE SPECIALIST IN CHARGE 10/12/2019 L25.5 - Unspecified contact dermatitis due to plants, except food Medical Established Patient with Poly Salvador [employer]ION SERVICE SPECIALIST IN CHARGE 09/14/2019 Obesity due to excess calories Medical E stablished Patient with Poly Salvador [employer]TENSION SERVICE SPECIALIST IN CHARGE 09/14/2019 Z68.37 - Body mass index (BM I) 37.0-37.9, adult Medical Established Patient with Poly Franco [facility] 09/14/2019 L25.5 - Unspecified contact dermatitis due to plants, except food Telemedicine with Poly Franco [facility] 09/11/2019 Obesity due to excess calories Telemedicine with Poly Franco [facility] 09/11/2019 Z68.37 - Body mass index (BM I) 37.0-37.9, adult Telemedicine with Poly Franco [facility] 09/11/2019 Dermatitis due to contact wi th poison spencer Telemedicine with Poly Franco [facility] 09/05/2019 Obesity due to excess calories Telemedicine with Poly Franco [facility] 09/05/2019 Z68.37 - Body mass index (BM I) 37.0-37.9, adult Telemedicine with Poly Franco [facility] 09/05/2019 Obesity due to excess calories Medical E stablished Patient with Miguel Holley [facility] 08/17/2019 Z68.37 - Body mass index (BM I) 37.0-37.9, adult Medical Established Patient with Miguel Dell [facility] 08/17/2019 Generalized anxiety disorder BH Establis hed Patient with Anh VIDAL 07/06/2019 Anxiety disorder NOS Medical New Patient with Allyson Nye [facility] 07/06/2019 Depression Medical New Patient with Allyson Everett EXTENSION SERVICE SPECIALIST IN CHARGE 07/06/2019 Diabetes Risk Test Score was one score Medical New Patient with Allyson Reasnor EXTENSION SERVICE SPECIALIST IN CHARGE 07/06/2019 Idiopathic insomnia Medical New Patient with Allyson Reasnor EXTENSION SERVICE SPECIALIST IN CHARGE 07/06/2019 Obesity due to excess calories Medical N ew Patient with Allyson Reasnor EXTENSION SERVICE SPECIALIST IN CHARGE 07/06/2019 Z68.39 - Body mass index (BM I) 39.0-39.9 adult Medical New Patient with Allyson Reasnor EXTENSION SERVICE SPECIALIST IN CHARGE 07/06/2019 Findings Encounter Date Cough Telemedicine Establi sted Patient with Miguel Dell [facility] 03/19/2020 Exposure to a viral disease Telemedicine Establisted Patient with Miguelcristal Holley EXTENSION SERVICE SPECIALIST IN CHARGE 03/19/2020 Obesity due to excess calories Telemedic ine Establisted Patient with Miguel Dell [facility] 03/19/2020 Z68.37 - Body mass index [BM I] 37.0-37.9, adult Telemedicine Establisted Patient with Miguelcristal Holley EXTENSION SERVICE SPECIALIST IN CHARGE 03/19/2020 Obesity due to excess calories Medical E stablished Patient with Miguel Dell EXTENSION SERVICE SPECIALIST IN CHARGE 03/05/2020 Z68.37 - Body mass index [BM I] 37.0-37.9, adult Medical Established Patient with Miguel Holley EXTENSION SERVICE SPECIALIST IN CHARGE 03/05/2020 Obesity due to excess calories Medical E stablished Patient with Poly Wagonerle EXTENSION SERVICE SPECIALIST IN CHARGE 12/05/2019 R21 - Rash and other nonspec [facility] Medical Established Patient with Poly Salvador EXTENSION SERVICE SPECIALIST IN CHARGE 12/05/2019 Z68.35 - Body mass index (BM I) 35.0-35.9, adult Medical Established Patient with Poly Wagonerle EXTENSION SERVICE SPECIALIST IN CHARGE 12/05/2019 Obesity due to excess calories Medical E stablished Patient with Poly Salvador EXTENSION SERVICE SPECIALIST IN CHARGE 11/06/2019 Z68.36 - Body mass index (BM I) 36.0-36.9, adult Medical Established Patient with Poly Wagonerle EXTENSION SERVICE SPECIALIST IN CHARGE 11/06/2019 Obesity due to excess calories Medical E stablished Patient with Poly Salvador EXTENSION SERVICE SPECIALIST IN CHARGE 10/12/2019 Z68.38 - Body mass index (BM I) 38.0-38.9, adult Medical Established Patient with Polykamryn Wagonerle [facility] 10/12/2019 L25.5 - Unspecified contact dermatitis due to plants, except food Medical Established Patient with Poly Salvador EXTENSION SERVICE SPECIALIST IN CHARGE 09/14/2019 Obesity due to excess calories Medical E stablished Patient with Poly Salvador [facility] 09/14/2019 Z68.37 - Body mass index (BM I) 37.0-37.9, adult Medical Established Patient with Polykamryn Wagonerle [facility] 09/14/2019 L25.5 - Unspecified contact dermatitis due to plants, except food Telemedicine with Poly Wagonerle [facility] 09/11/2019 Obesity due to excess calories Telemedicine with Poly Salvador [facility] 09/11/2019 Z68.37 - Body mass index (BM I) 37.0-37.9, adult Telemedicine with Poly Salvador [facility] 09/11/2019 Dermatitis due to contact wi th poison spencer Telemedicine with Poly Wagonerle [facility] 09/05/2019 Obesity due to excess calories Telemedicine with Poly Salvador [facility] 09/05/2019 Z68.37 - Body mass index (BM I) 37.0-37.9, adult Telemedicine with Poly Wagonerle [facility] 09/05/2019 Obesity due to excess calories Medical E stablished Patient with Miguel Holley [facility] 08/17/2019 Z68.37 - Body mass index (BM I) 37.0-37.9, adult Medical Established Patient with Miguel Holley EXTENSION SERVICE SPECIALIST IN CHARGE 08/17/2019 Generalized anxiety disorder BH Establis hed Patient with Anh VIDAL 07/06/2019 Anxiety disorder NOS Medical New Patient with Allyson Floyd EXTENSION SERVICE SPECIALIST IN CHARGE 07/06/2019 Depression Medical New Patient with Allyson Floyd EXTENSION SERVICE SPECIALIST IN CHARGE 07/06/2019 Diabetes Risk Test Score was one score Medical New Patient with Allyson Floyd EXTENSION SERVICE SPECIALIST IN CHARGE 07/06/2019 Idiopathic insomnia Medical New Patient with Allyson Floyd EXTENSION SERVICE SPECIALIST IN CHARGE 07/06/2019 Obesity due to excess calories Medical N ew Patient with Allyson Floyd EXTENSION SERVICE SPECIALIST IN CHARGE 07/06/2019 Z68.39 - Body mass index (BM I) 39.0-39.9 adult Medical New Patient with Allyson Floyd EXTENSION SERVICE SPECIALIST IN CHARGE 07/06/2019 Diagnosis COVID-19 Fatty liver Other chronic [...] Everywhere. * Coronavirus Disease (COVID-19): General Info ([place]ivian) documented in this encounter Additional Source Comments INFORMATION SOURCE (unrecogn ized section and content) DATE CREATED AUTHOR 11/24/2017 [facility] DATE CREATED AUTHOR AUTHOR'S ORGANIZ ATION 08/26/2018 [facility] DATE CREATED AUTHOR AUTHOR'S ORGANIZ ATION 09/24/2020 [facility] DATE CREATED AUTHOR AUTHOR'S ORGANIZ ATION 10/30/2024 [facility] DATE CREATED AUTHOR AUTHOR'S ORGANIZ ATION 01/24/2025 [facility] EPIC Evaluations & Outcomes (unre [...] TRANSVAGINAL, NON OB Dana Akins MD [address] [place] [address] [facility] [address] [place] [address] Reason Comments Emesis multiple episodes si nce [...] Care Teams (unrecognized sec tion and content) Welder/Installer Relationship Specialty Start Date End Date Miguel Holley, DIRECTOR OF CATERING SALES [facility] PCP - General Family Medicine 04/08/20 Welder/Installer Relationship Specialty Start Date End Date Miguel Holley, DIRECTOR OF CATERING SALES [facility] PCP - General Family Medicine 04/08/20 Welder/Installer Relationship Specialty Start Date End Date Miguel Holley, DIRECTOR OF CATERING SALES [facility] PCP - General Family Medicine 04/08/20 Welder/Installer Relationship Specialty Start Date End Date Miguel Holley, DIRECTOR OF CATERING SALES [facility] PCP - General Family Medicine 04/08/20 FOR [...] BE BASED ON THE PRIMARY CLINICAL RECORDS. [facility] provides no warranty or guarantee of the accuracy or completeness of information in this document.
== END 2025-02-06 12:04 | disposition home or self-care (01) ==
LOC: LAB 12:03
PROVIDERS: Visit Provider Obstetrics & Gynecology
DX: Z34.93 Encounter for supervision of normal pregnancy, unspecified, third trimester (principal); Z3A.36 36 weeks gestation of pregnancy
CPT/HCPCS: 87081

== ENCOUNTER 2025-02-09 09:02 | Outpatient (OUT) | payer MEDICAID, SELFPAY ==
--- NOTE | 2025-02-09 09:05 | US_ITS ---
[facility] [place] [address] Patient Name: TARA FLOREZ MRN: [id number] date: 1995 Sex: F Assigned Patient Location: [facility] Current Patient Location: Accession/Order Number: [id number] Exam Date: 02/09/2025 09:15 Report Date: 02/09/2025 10:39 At the request of: BRUCE CARD DO Procedure: US OB BPP w non-stress BIOPHYSICAL PROFILE: CLINICAL INFORMATION: LGA COMPARISON: 02/02/2025 There is a single live intrauterine gestation in cephalic presentation. The reported gestational age is 36 weeks 3 days. The heart rate [id number] beats per minute. FINDINGS: TONE: 1 or more episodes of activity extension and flexion of extremity or opening and closing of the hand [Y] 2/2 GROSS BODY MOVEMENTS: 3 or more discrete body or limb movements [Y] 2/2 BREATHING MOVEMENTS: 1 or more episodes of breathing lasting at least 30 seconds [Y] 0/2 DEE: A single deepest vertical pocket of amniotic fluid greater than 2 cm [Y] 2/2 DEE: 11.5 cm cm Total score: 6/8 US/US OB BPP w non-stress IMPRESSION: FAILED BIOPHYSICAL PROFILE WITH NO BREATHING. Impression dictated by: Lindsey Bright M.D. 02/09/2025 10:39 AM Dictation Location: [place] [address] Electronically authenticated by: [id number] Y Date: 02/09/2025 10:39
--- OUTSIDE RECORDS SUMMARY | 2025-02-09 09:09 | XMS_ITS | CCD ---
Author Organization [facility] Care Team Providers Care Extract Mixer Name Role Phone NO FAMILY PHYSICIAN, 837 Unavailable Unavail able FELIX GALVAN Unavailable Unavailable Miguel Holley Primary Care Provider Jackson Haas Primary Care Provider Miguel Holley Primary Care Provider [phone] Miguel Holley Primary Care Provider Miguel Holley CNP Primary Care Provider [phone] [employer] 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 - DIANELYS, Miguel Berry Primary Care Provider MIGUEL HOLLEY Referring Unavailable MIGUEL HOLLEY Primary Care Unavailable Dell 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 - DIANELYS, Miguel Berry Primary Care Provider Dell 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 - DIANELYS, Miguel Berry Primary Care Provider Shona Lucio Primary Care Physician Yeison Holley 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 - ENVELOPE PATTERNMAKER, Miguel Berry Primary Care Provider Dell 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 - Miguel IVORY Primary Care Provider Unavailable Primary Care Provider UnavailADITYA Hernandez Referring Unavailable MIGUEL HOLLEY Primary Care Unavailable BILLYBOBBYY Attending Unavailable BILLYBOBBYY Attending Unavailable DAYRON, LATASHA Attending Unavailable DAYRON, LATASHA Attending Unavailable BILLY, ADITYA Attending Unavailable BILLY, ADITYA Attending Unavailable DAYRON, LATASHA Attending Unavailable BILLY ADITYA Referring Unavailable BILLYBOBBYY Attending Unavailable DAYRON, LATASHA Attending Unavailable BILLY, ADITYA Attending Unavailable DAYRON, LATASHA Attending Unavailable DAYRON, LATASHA Attending Unavailable DAYRON, LATASHA Attending Unavailable Allergies Allergy Classification Reported Allergen(s) Allergy Type Date of Onset Reaction(s) Facility Aminoketones (4 sources) buPROPion; Translations: [Wellbutrin SR 100 MG Oral Tablet Extended Release 12 Hour] Drug Allergy 03-05-20 20 Wellbutrin SR [facility] Work Phone: Corticosteroids (6 sources) Triamcinolone Drug Allergy 10-14-19 14 Other (See Comments) [facility] Lisdexamfetamine (1 source) Lisdexamfetamine Drug Allergy 10-04-19 21 Vyvanse [facility] Work Phone: Naltrexone (4 sources) Naltrexone; Translations: [Naltrexone HCl 50 MG Oral Tablet] Drug Allergy 03-05-20 20 Naltrexone HCl [facility] Work Phone: (1 source) Triamcinolone; Translations: [TRIAMCINOLONE ACETONIDE] Drug Allergy 10-12-19 15 [facility] Repository (16 sources) Triamcinolone; Translations: [Kenalog] Drug Allergy 07-06-19 20 [facility] Work Phone: (20 sources) Triamcinolone Drug Allergy 10-14-19 14 Other (See Comments), Other, Hives [place], [place] (17 sources) Poison spencer Allergy to substance 07-20-19 [facility] Work Phone: (3 sources) buPROPion; Translations: [Wellbutrin SR 100 MG Oral Tablet Extended Release 12 Hour] Drug Allergy 03-05-20 20 Wellbutrin SR [facility] Work Phone: (3 sources) Naltrexone; Translations: [Naltrexone HCl 50 MG Oral Tablet] Drug Allergy 03-05-20 20 Naltrexone HCl [facility] Work Phone: (20 sources) Other Propensity [...] Active Continuous Glucose Sensor (Dexcom G6 Sensor) [facility] (18 sources) Start: 01-18-2025 Continuous Glucose Sensor (Dexcom G6 Sensor) [facility] Indications: Elevated glucose tolerance test , 28 weeks gestation of ([facility]) , Gestational diabetes mellitus (GDM), antepartum, gestational diabetes method of control unspecified ([facility]) 1 each Every 10 (ten) days 3 each 3 01/18/2025 Active Start: 12-13-2024 Continuous Glu cose Sensor (Dexcom G6 Sensor) [facility] Indications: Elevated glucose tolerance test , 28 weeks gestation of ([facility]) , Gestational diabetes mellitus (GDM), antepartum, gestational diabetes method of control unspecified ([facility]) 1 each Every 10 (ten) days 3 each 3 12/13/2024 Active Continuous Glucose Transmitt er (Dexcom G6 transmitter) [facility] (16 sources) Start: 12-19-2024 Continuous Glu cose Transmitter (Dexcom G6 transmitter) [facility] Indications: Gestational diabetes mellitus (GDM), antepartum, gestational diabetes method of control unspecified ([facility]) Use as instructed 1 each 12/19/2024 Active [...] ibuprofen 800 MG tablet 01/06/2024 Active levonorgestrel 0.048846 mg/hr intrauterine system (17 sources) Progestin, Progestin-containin g Intrauterine Device Start : 07-20 Mirena (52 MG) 20 MCG/24HR Intrauterine Intrauterine device 07/20/2019 Provider: 24 hr metFORMIN hydrochloride 500 mg extended release oral tablet (19 sources) Biguanide Start : 06-14 End: 06-14 take 1 tablet by mouth every twenty-four hours at mealtime metFORMIN XR (Glucophage-XR) 500 MG 24 hr tablet Indications: Hyperglycemia during ([facility]) Take 1 tablet (500 mg) by mouth [...] supervision of normal first in first trimester ([facility]) Take 1 tablet by mouth Daily 30 tablet 11 08/04/2024 Active Start: 08-04-2024 take 1 tablet by cecile once daily Vit-Fe Fumarate-FA (PNV Plus Multivitamin) [...] MG Oral Tablet 03/05/2020 Provider: Miguel Holley ENVELOPE PATTERNMAKER Completed/Discontinued Medications Medication Drug Class(es) Dates Sig [...] OB BPP W NON-STRESS on 02-02-2025 [place] [address] Ultrasound Report Signed Patient: ESTEFANIA CEDEÑO MR#: [id number] : 1995 Acct:[id number] Age/Sex: 29 / F ADM Date: 02/02/25 Loc: US Attending Dr: Aditya Cervantes D.O. Ordering Physician: Aditya Cervantes D.O. Date of Service: 02/02/25 Procedure(s): US OB BPP w non-stress Accession Number(s): [id number] cc: Aditya Cervantes D.O.; Physician,Non-Staff MSirena The [place] [address] Patient Name: ESTEFANIA CEDEÑO MRN: [id number] date: 1995 Sex: F Assigned Patient Location: [facility] Current Patient Location: Accession/Order Number: [id number] Exam Date: 02/02/2025 09:12 Report Date: 02/02/2025 [...] 02/02/2025 10:17 AM Dictation Location: [place] [address] Electronically authenticated by: [id number] Y Date: 02/02/2025 10:17 Dictated By: Lindsey Bright M.D. Signed By: 02/02/25 1020 DD/ 1017 TD/TT: Maintenance And Utilities Supervisor: [facility] Radiology, Radiologi MD raymond - 02/02/2025 [place] [address] Ultrasound Report Signed Patient: ESTEFANIA CEDEÑO MR#: [id number] : 1995 Acct:[id number] Age/Sex: 29 / F ADM Date: 02/02/25 Loc: US Attending Dr: Aditya Cervantes D.O. Ordering Physician: Aditya Cervantes D.O. Date of Service: 02/02/25 Procedure(s): US OB BPP w non-stress Accession Number(s): [id number] cc: Aditya Cervantes D.O.; Physician,Non-Staff Roberto The [place] [id number] Patient Name: ESTEFANIA CEDEÑO MRN: [facility]:[id number] date: 1995 Sex: F Assigned Patient Location: [facility] Current Patient Location: Accession/Order Number: [id number] Exam Date: 02/02/2025 09:12 Report Date: 02/02/2025 [...] Bright M.D. 02/02/2025 10:17 AM Dictation Location: [email or web address] Electronically authenticated by: [id number] Y Date: 02/02/2025 10:17 Dictated By: Lindsey Bright M.D. Signed By: 02/02/25 1020 DD/ 1017 TD/TT: Maintenance And Utilities Supervisor: [facility] Radiology Study observation (narrative) [facility] OB BPP W NON-STRESS Ordered By: Radiologist Radiology on 02-02-2025 [facility] Work Phone: No Panel InformationOrdered By: Radiologist Radiology on 01-26-2025 [facility] Work Phone: No Panel Informationon 01-26 Radiology Study observation (narrative) [facility] US OB BPP W NON-STRESS on 01-26-2025 [place] [address] Ultrasound Report Signed Patient: ESTEFANIA CEDEÑO MR#: [id number] : 1995 Acct:[id number] Age/Sex: 29 / F ADM Date: 01/26/25 Loc: US Attending Dr: Aditya Cervantes D.O. Ordering Physician: Aditya Cervantes D.O. Date of Service: 01/26/25 Procedure(s): US OB BPP w non-stress Accession Number(s): [id number] cc: Aditya Cervantes D.O.; Physician,Non-Staff Roberto The [place] [id number] Patient Name: ESTEFANIA CEDEÑO MRN: [facility]:[id number] date: 1995 Sex: F Assigned Patient Location: [facility] Current Patient Location: Accession/Order Number: [id number] Exam Date: 01/26/2025 09:08 Report Date: 01/26/2025 [...] 01/26/2025 11:00 AM Dictation Location: [place] [address] Electronically authenticated by: [id number] Y Date: 01/26/2025 11:00 Dictated By: Lindsey Bright M.D. Signed By: 01/26/25 1103 DD/ 1100 TD/TT: Maintenance And Utilities Supervisor: [facility] Radiology, Radiologestefania andrade MD - 01/26/2025 [place] [address] Ultrasound Report Signed Patient: ESTEFANIA CEDEÑO MR#: [id number] : 1995 Acct:[id number] Age/Sex: 29 / F ADM Date: 01/26/25 Loc: US Attending Dr: Aditya Cervantes D.O. Ordering Physician: Aditya Cervantes D.O. Date of Service: 01/26/25 Procedure(s): US OB BPP w non-stress Accession Number(s): [id number] cc: Aditya Cervantes D.O.; Physician,Non-Staff Roberto The [address] [id number] Patient Name: ESTEFANIA CEDEÑO MRN: [facility]:[id number] date: 1995 Sex: F Assigned Patient Location: [facility] Current Patient Location: Accession/Order Number: [id number] Exam Date: 01/26/2025 09:08 Report Date: 01/26/2025 [...] 01/26/2025 11:00 AM Dictation Location: [place] [address] Electronically authenticated by: [id number] Y Date: 01/26/2025 11:00 Dictated By: Lindsey Bright M.D. Signed By: 01/26/25 1103 DD/ 1100 TD/TT: Maintenance And Utilities Supervisor: [facility] OB GROWTHon 01-26-2025 [place] [address] Ultrasound Report Signed Patient: ESTEFANIA CEDEÑO MR#: [id number] : 1995 Acct:[id number] Age/Sex: 29 / F ADM Date: 01/26/25 Loc: US Attending Dr: Aditya Cervantes D.O. Ordering Physician: Aditya Cervantes D.O. Date of Service: 01/26/25 Procedure(s): US OB growth Accession Number(s): [id number] cc: Aditya Cervantes D.O.; Physician,Non-Staff Roberto The [place] [id number] Patient Name: ESTEFANIA CEDEÑO MRN: [id number]:[id number] date: 1995 Sex: F Assigned Patient Location: Current Patient Location: Accession/Order Number: [id number] Exam Date: 01/26/2025 09:08 Report Date: 01/26/2025 [...] 01/26/2025 11:00 AM Dictation Location: [place] [address] Electronically authenticated by: [id number] Y Date: 01/26/2025 11:00 Dictated By: Lindsey Bright M.D. Signed By: 01/26/25 1103 DD/ 1100 TD/TT: Maintenance And Utilities Supervisor: [facility] Radiology, Radiologi MD raymond - 01/26/2025 The [place] [id number] Ultrasound Report Signed Patient: ESTEFANIA CEDEÑO MR#: [id number] : 1995 Acct:[id number] Age/Sex: 29 / F ADM Date: 01/26/25 Loc: US Attending Dr: Aditya Cervantes D.O. Ordering Physician: Aditya Cervantes D.O. Date of Service: 01/26/25 Procedure(s): US OB growth Accession Number(s): [id number] cc: Aditya Cervantes D.O.; Physician,Non-Staff [facility] [place] [address] Patient Name: ESTEFANIA CEDEÑO MRN: [id number] date: 1995 Sex: F Assigned Patient Location: Current Patient Location: Accession/Order Number: [id number] Exam Date: 01/26/2025 09:08 Report Date: 01/26/2025 [...] Bright M.D. 01/26/2025 11:00 AM Dictation [facility] Electron[facility] authenticated by: [id number] Y Date: 01/26/2025 11:00 Dictated By: Lindsey Bright M.D. Signed By: 01/26/25 1103 DD/ 1100 TD/TT: Maintenance And Utilities Supervisor: [facility] US OB BPP W NON-STRESS on 01-19-2025 [place] [address] Ultrasound Report Signed Patient: ESTEFANIA CEDEÑO MR#: [id number] : 1995 Acct:[id number] Age/Sex: 29 / F ADM Date: 01/19/25 Loc: US Attending Dr: Aditya Cervantes D.O. Ordering Physician: Aditya Cervantes D.O. Date of Service: 01/19/25 Procedure(s): US OB BPP w non-stress Accession Number(s): [id number] cc: Aditya Cervantes D.O.; Physician,Non-Staff Roberto The [place] [address] Patient Name: ESTEFANIA CEDEÑO MRN: [id number] date: 1995 Sex: F Assigned Patient Location: [facility] Current Patient Location: Accession/Order Number: [id number] Exam Date: 01/19/2025 09:10 Report Date: 01/19/2025 [...] Saez M.D. 01/19/2025 2:26 PM Dictation Location[facility] Electronically authenticated by: [id number] Y Date: 01/19/2025 14:26 Dictated By: Carroll Saez D.O. Signed By: 01/19/25 1429 DD/ 1426 TD/TT: Maintenance And Utilities Supervisor: [facility] Radiology, Radiologestefania andrade MD - 01/19/2025 [place] [address] Ultrasound Report Signed Patient: ESTEFANIA CEDEÑO MR#: [id number] : 1995 Acct:[id number] Age/Sex: 29 / F ADM Date: 01/19/25 Loc: US Attending Dr: Aditya Cervantes D.O. Ordering Physician: Aditya Cervantes D.O. Date of Service: 01/19/25 Procedure(s): US OB BPP w non-stress Accession Number(s): [id number] cc: Aditya Cervantes D.O.; Physician,Non-Staff Roberto The [place] [id number] Patient Name: ESTEFANIA CEDEÑO MRN: [facility]:[id number] date: 1995 Sex: F Assigned Patient Location: [facility] Current Patient Location: Accession/Order Number: [id number] Exam Date: 01/19/2025 09:10 Report Date: 01/19/2025 [...] Saez M.D. 01/19/2025 2:26 PM Dictation Location: [place] [address] Electronically authenticated by: [id number] Y Date: 01/19/2025 14:26 Dictated By: Carroll Saez D.O. Signed By: 01/19/25 1429 DD/ 25 TD/TT: Maintenance And Utilities Supervisor: [facility] Radiology Study observation (narrative) [facility] US OB BPP W NON-STRESS Ordered By: Radiologist Radiology on 01-19-2025 [facility] Work Phone: Urinalysis macro (dipstick) panel (U)on 01-09-2025 Bilirubin, UA Negative Negative - 4(70) +++ mg/dL [facility] Blood, UA Negative Negative - 50 Chuy/mcL [facility] Clarity, UA Clear [facility] Color, UA Yellow [facility] Glucose, UA Negative Negative - 2000(110) ++++ mg/dL [facility] Interpretation and review of laboratory results Normal [facility] Ketones, UA Negative Negative - 160(16) ++++ mg/dL [facility] Leukocytes, UA Negative Negative - 500+++ Sadi/mcL [facility] Nitrite, UA Negative Negative - Positive [facility] pH, UA 6.5 5 - 9 [facility] Protein, UA Negative Negative - 2000(20) ++++ mg/dL [facility] Spec Grav, UA 1.015 1 - 1.03 [facility] Urobilinogen, UA 1.0 0.2 - 12 mg/dL [facility] US OB FOLLOW UP TRANSABDOMIN AL APPROACHon [...] II, MD, PHD at 28-Dec-2024 08:33:38 AM [facility] Normal Not Available Comment on above: Order Comment: US OB SCAN FOR GROWTH Estimated Date of Delivery: 03/06/25 Gestational Age as of 12/13/2024: 28w1d Urinalysis macro (dipstick) panel (U)on 12-27-2024 Bilirubin, UA Negative Negative - 4(70) +++ mg/dL [facility] Blood, UA Negative Negative - 50 Chuy/mcL [facility] Clarity, UA Clear [facility] Color, UA Yellow [facility] Glucose, UA Positive Negative - 1999(110) ++++ mg/dL [facility] Interpretation and review of laboratory results Abnormal [facility] Ketones, UA Negative Negative - 160(16) ++++ mg/dL [facility] Leukocytes, UA Negative Negative - 500+++ Sadi/mcL [facility] Nitrite, UA Negative Negative - Positive [facility] pH, UA 6 5 - 9 [facility] Protein, UA Positive Negative - 1999(20) ++++ mg/dL [facility] Spec Grav, UA 1.02 1 - 1.03 [facility] Urobilinogen, UA 1.0 0.2 - 12 mg/dL [facility] Urinalysis macro (dipstick) panel (U)on 12-13-2024 Bilirubin, UA Negative Negative - 4(70) +++ mg/dL [facility] Blood, UA Negative Negative - 50 Chuy/mcL [facility] Clarity, UA Clear [facility] Color, UA Yellow [facility] Glucose, UA Negative Negative - 2000(110) ++++ mg/dL [facility] Interpretation and review of laboratory results Normal [facility] Ketones, UA Negative Negative - 160(16) ++++ mg/dL [facility] Leukocytes, UA Negative Negative - 500+++ Sadi/mcL [facility] Nitrite, UA Negative Negative - Positive [facility] pH, UA 6 5 - 9 [facility] Protein, UA Negative Negative - 2000(20) ++++ mg/dL [facility] Spec Grav, UA 1.015 1 - 1.03 [facility] Urobilinogen, UA 1.0 0.2 - 12 mg/dL [facility] GLUCOSE TOLERANCE 3 HOURon 0 12-12-2024 GLUCOSE TOLERANCE 3 HOUR High mg/dL [facility] Comment on above: GLU FAST 85 (<95) Co l: 12/12/24 1118 GLU 1HR 198H (<180) Col: 12/12/24 1220 GLU 2HR 171H (<155) Col: 12/12/24 1320 GLU 3HR 74 (<140) Col: 12/12/24 1422 Interpretation and review of laboratory results Abnormal [facility] ECG 12-LEADon 12-07-2024 [place] [address] Electrocardiograph Report Signed Patient: ESTEFANIA CEDEÑO MR#: [id number] : 1995 Acct:[id number] Age/Sex: 29 / F ADM Date: 12/05/24 Loc: CR Attending Dr: Latasha Padgett Ordering Physician: Latasha Padgett Date of Service: 12/05/24 Procedure(s): ECG 12 lead Accession Number(s): [id number] cc: [facility] Test Date: 2024-12-05 Pat Name: ESTEFANIA CEDEÑO Department: Room: - Gender: Female Applique Cutter: : 1995 Requested By: 0923 Order Number: [id number] [place] MD: ANTON THORPE Measurements Intervals [place] Rate: 68 P: 55 AL: 116 QRS: 72 QRSD: 94 T: 14 QT: 411 QTc: 439 Interpretive Statements SINUS RHYTHM WITH SHORT AL INTERVAL NONSPECIFIC T-WAVE ABNORMALITY No previous ECG available for comparison Electronically Signed On 12-07-2024 9:00:49 EDT by ANTON THORPE Dictated By: Anton Thorpe M.D. Signed By: 12/07/2489912/07/24899 DD/ 6 TD/TT: Maintenance And Utilities Supervisor: [facility] RadiologyIsma MD - 12/07/2024 [place] [address] Electrocardiograph Report Signed Patient: ESTEFANIA CEDEÑO MR#: [id number] : 1995 Acct:[id number] Age/Sex: 29 / F ADM Date: 12/05/24 Loc: CR Attending Dr: Latasha Padgett Ordering Physician: Latasha Padgett Date of Service: 12/05/24 Procedure(s): ECG 12 lead Accession Number(s): [id number] cc: [facility] Test Date: 2024-12-05 Pat Name: ESTEFANIA CEDEÑO Department: Room: - Gender: Female Applique Cutter: : 1995 Requested By: 0923 Order Number: [id number] [place] MD: ANTON THORPE Measurements Intervals [place] Rate: 68 P: 55 AL: 116 QRS: 72 QRSD: 94 T: 14 QT: 411 QTc: 439 Interpretive Statements SINUS RHYTHM WITH SHORT AL INTERVAL NONSPECIFIC T-WAVE ABNORMALITY No previous ECG available for comparison Electronically Signed On 12-07-2024 9:00:49 EDT by ANTON THORPE Dictated By: Anton Thorpe M.D. Signed By: 12/07/2489912/07/24899 DD/ 6 TD/TT: Maintenance And Utilities Supervisor: [facility] ECG 12-LEADOrdered By: Radio logist Radiology on 12-07-2024 [facility] [employer] Work Phone: ALL CBC WITH AUTO DIFFon BASOPHILS ABSOLUTE AUTO 0 [facility] Basophils/100 WBC (Bld) 0.2 % 0.2 - 2.0 % [facility] Eosinophils/100 WBC (Bld) 0.6 % Low 0.9 - 7.0 % [facility] Erythrocyte distribution width (RBC) [Ratio] 13.7 % 11.0 - 15.0 % [facility] Hematocrit (Bld) [Volume fraction] 34.3 % Low 36.0 - 48.0 % [facility] Hemoglobin (Bld) [Mass/Vol] 11.5 g/dL Low 12.0 - 16.0 g/dL [facility] IMMATURE GRANULOCYTES ABS AUTO 0.08 High [facility] Immature granulocytes/100 WBC (Bld) 0.7 % High 0.0 - 0.5 % [facility] Interpretation and review of laboratory results Abnormal [facility] LYMPHOCYTES ABSOLUTE AUTO 2.1 [facility] Lymphocytes/100 WBC (Bld) 18.9 % Low 20.5 - 60.0 % [facility] MCH (RBC) [Entitic mass] 27.8 pg 26.7 - 34.0 pg [facility] MCHC (RBC) [Mass/Vol] 33.5 g/dL 29.9 - 35.2 g/dL [facility] MCV (RBC) [Entitic vol] 82.9 fL 81.0 - 99.0 fL [facility] MONOCYTES ABSOLUTE AUTO 0.5 [facility] Monocytes/100 WBC (Bld) 4 % 1.7 - 12.0 % [facility] NEUTROPHILS ABSOLUTE AUTO 8.6 High [facility] Neutrophils/100 WBC (Bld) 75.6 % High 43.0 - 75.0 % [facility] Platelet mean volume (Bld) [Entitic vol] 11.1 fL 9.5 - 13.5 fL [facility] TBH EO # 0.1 [facility] PLT 140 Low [facility] RBC 4.14 Low [facility] WBC 11.3 High [facility] ECG 12-LEADon 12-05-2024 Radiology Study observation (narrative) [facility] Urinalysis macro (dipstick) panel (U)on 11-22-2024 Bilirubin, UA Negative Negative - 4(70) +++ mg/dL [facility] Blood, UA Negative Negative - 50 Chuy/mcL [facility] Clarity, UA Clear [facility] Color, UA Yellow [facility] Glucose, UA Negative Negative - 2000(110) ++++ mg/dL [facility] Interpretation and review of laboratory results Abnormal [facility] Ketones, UA Positive Negative - 160(16) ++++ mg/dL [facility] Comment on above: trace Leukocytes, UA Negative Negative - 500+++ Sadi/mcL [facility] Nitrite, UA Negative Negative - Positive [facility] pH, UA 6.5 5 - 9 [facility] Protein, UA Negative Negative - 1999(20) ++++ mg/dL [facility] Spec Grav, UA 1.025 1 - 1.03 [facility] Urobilinogen, UA 0.2 0.2 - 12 mg/dL [facility] MHPT AFP, MATERNALon 025 [facility]ERMIN[facility] SEE NOTE [facility] Comment on above: Results for Estimate d Due Date: 03 06 25 MHPT FAMILY HISTORY No [facility] MHPT GESTAT AGE (EXACT) 20 wks, 0 days [facility] MHPT INS REQ MATERN DIAB No [facility] Screen Neg [facility] Comment on above: (NOTE) INTERPRETATION: SCREEN NEGATIVE for open spina bifida Neural Tube Defects (NTD) Negative Pre-Test Post-Test Cutoff Neural Tube Defects Risks 1:1030 < 1:13682 1:250 Comments: The risk of an open neural tube defect is less than the screening cut-off. This test was developed and its performance characteristics determined by [facility]. It has not been cleared or approved by the [place] Food and Drug Administration. This test was performed in a CLIA certified laboratory and is intended for clinical purposes. MHPT [age] [facility] MHPT MATERNAL RACE Nonblack [facility] MHPT MATERNAL WEIGHT 234.0 lbs. [facility] AFP 0.82 [facility] NUMBER OF FETUSES Sanchez NO [facility] MHPT PATIENT'S AFP 36 ng/mL [facility] S[facility] Unknown [facility] SPE[facility]EN See Note [facility] Comment on above: (NOTE) Initial sample Performed By: [facility] [address] [place] [address] Industrial Waste Inspector: Pranay Rousseau MD, PhD CLIA Number: [id number] Original Ordering Provider: ADITYA CRAVEN CLINISYCAYDEN [facility] Urinalysis macro (dipstick) panel (U)on 10-25-2024 Bilirubin, UA Negative Negative - 4(70) +++ mg/dL [facility] Blood, UA Negative Negative - 50 Chuy/mcL [facility] Clarity, UA Clear [facility] Color, UA Yellow [facility] Glucose, UA Negative Negative - 2000(110) ++++ mg/dL [facility] Interpretation and review of laboratory results Normal [facility] Ketones, UA Negative Negative - 160(16) ++++ mg/dL [facility] Leukocytes, UA Negative Negative - 500+++ Sadi/mcL [facility] Nitrite, UA Negative Negative - Positive [facility] pH, UA 5.5 5 - 9 [facility] Protein, UA Negative Negative - 2000(20) ++++ mg/dL [facility] Spec Grav, UA 1.03 1 - 1.03 [facility] Urobilinogen, UA 0.2 0.2 - 12 mg/dL [facility] AFP, Maternalon 10-20-2024 Determined by Ultrasound [facility] Comment on above: Performed By: #### A AFPM #### [facility] [address], [place] [id number] Safety And Health Consultant: Dallas Xiong MD Due Date SEE NOTE [facility] Comment on above: Result Comment: Resu lts for Estimated Due Date: 03 06 25 Performed By: #### A AFPM #### [facility] [address], [place] [id number] Safety And Health Consultant: Dallas Xiong MD Family History No [facility] Comment on above: Performed By: #### A AFPM #### [facility] [address], [place] [id number] Safety And Health Consultant: Dallas Xiong MD Gestat Age (exact) 20 wks, 0 days Normal [facility] Comment on above: Performed By: #### A AFPM #### [facility] [address], [place] [id number] Safety And Health Consultant: Dallas Xiong MD Ins Req Matern Diab No [facility] Comment on above: Performed By: #### A AFPM #### [facility] [address] [place] [address] Safety And Health Consultant: Dallas Xiong MD Interpretation Screen Neg [facility] Comment on above: Result Comment: (NOT E) INTERPRETATION: SCREEN NEGATIVE for open spina bifida Neural Tube Defects (NTD) Negative Pre-Test Post-Test Cutoff Neural Tube Defects Risks 1:1030 < 1:44179 1:250 Comments: The risk of an open neural tube defect is less than the screening cut-off. This test was developed and its performance characteristics determined by [facility]. It has not been cleared or approved by the US Food and Drug Administration. This test was performed in a CLIA certified laboratory and is intended for clinical purposes. Performed By: #### A AFPM #### [facility] [address], [place] [id number] Safety And Health Consultant: Dallas Xiong MD [age] [facility] Comment on above: Performed By: #### A AFPM #### [facility] [address], [place] [id number] Safety And Health Consultant: Dallas Xiong MD Maternal Race Nonblack [facility] Comment on above: Performed By: #### A AFPM #### [facility] [address], [place] [id number] Safety And Health Consultant: Dallas Xiong MD Maternal Weight 234.0 lbs. [facility] Comment on above: Performed By: #### A AFPM #### [facility] [address], [place] [id number] Safety And Health Consultant: Dallas Xiong MD MoM for AFP 0.82 [facility] Comment on above: Performed By: #### A AFPM #### [facility] [address], [place] [id number] Safety And Health Consultant: Dallas Xiong MD Number of Fetuses [facility] Comment on above: Performed By: #### A AFPM #### [facility] [address] [place] [address] Safety And Health Consultant: Dallas Xiong MD Patient's AFP 36 ng/mL [facility] Comment on above: Performed By: #### A AFPM #### [facility] [address] [place] [address] Safety And Health Consultant: Dallas Xiong MD Smoking Unknown [facility] Comment on above: Performed By: #### A AFPM #### [facility] [address] [place] [address] Safety And Health Consultant: Dallas Xiong MD Specimen See Note [facility] Comment on above: Result Comment: (NOT E) Initial sample Performed By: [facility] [address] [place] [address] Industrial Waste Inspector: Pranay Rousseau MD, PhD CLIA Number: [id number] Performed By: #### A AFPM #### [facility] [address] [place] [address] Safety And Health Consultant: Dallas Xiong MD IGP,APTIMA HPV,AGE GDLNon AGE GDLN ACOG TESTING Note . [facility] Comment on above: TESTS RESULT FLAG UN ITS REF RANGE LAB Clinician Provided Cytology Information Other.............. No. of containers..01 ThinPrep Vial Age Algo ACOG Geetha... FLAG LEGEND: L-Low Normal,H-High Normal,LL-Alert Low,HH-Alert High <-Panic Low,>-Panic High,A-Abnormal,AA-Critical Abnormal Performed at: 01 =G [facility] [address] [place] [address] Lynda Almaguer MD, IGP, RFX APTIMA HPV ASCU Note . [facility] Comment on above: TESTS RESULT FLAG UN ITS REF RANGE LAB DIAGNOSIS: 02 NEGATIVE FOR INTRAEPITHELIAL LESION OR MALIGNANCY. FUNGAL ORGANISMS MORPHOLOGICALLY CONSISTENT WITH MARTHA SPECIES ARE PRESENT. CELLULAR CHANGES ASSOCIATED WITH INFLAMMATION ARE PRESENT. Specimen adequacy: 02 Satisfactory for evaluation. Endocervical and/or squamous metaplastic cells (endocervical component) are present. Performed by: Juliana Correia Blanket Folder . 02 Note: Note 02 The Pap [...] <-Panic Low,>-Panic High,A-Abnormal,AA-Critical Abnormal Performed at: [address] [address] Lynda Almaguer MD, Performed at: = - [facility] [address] [id number] Safety And Health Consultant: Lynda Almaguer MD, Phone: [phone] Performed at: - [facility] [id number] Safety And Health Consultant: Lynda Almaguer MD, Phone: [phone] BRUSH-SPATULA BRUSH-ALONE 2 [facility] US OB 14+ WEEKS ANATOMY SCAN [...] II, MD, PHD at 25-Oct-2024 11:18:[address] [facility] Normal Not Available Comment on above: Order Comment: US OB ANATOMY SINGLE W US OB CERVICAL LENGTH Estimated Date of Delivery: 03/06/25 Gestational Age as of 09/26/2024: 17w0d Urinalysis macro (dipstick) panel (U)on 09-26-2024 Bilirubin, UA Negative Negative - 4(70) +++ mg/dL [facility] Blood, UA Negative Negative - 50 Chuy/mcL [facility] Clarity, UA Clear [facility] Color, UA Yellow [facility] Glucose, UA Negative Negative - 1999(110) ++++ mg/dL [facility] Interpretation and review of laboratory results Normal [facility] Ketones, UA Positive Negative - 160(16) ++++ mg/dL [facility] Leukocytes, UA Negative Negative - 500+++ Sadi/mcL [facility] Nitrite, UA Negative Negative - Positive [facility] pH, UA 7 5 - 9 [facility] Protein, UA Negative Negative - 2000(20) ++++ mg/dL [facility] Spec Grav, UA 1.02 1 - 1.03 [facility] Urobilinogen, UA 0.2 0.2 - 12 mg/dL [facility] Urinalysis macro (dipstick) panel (U)on 08-29-2024 Bilirubin, UA Negative Negative - 4(70) +++ mg/dL [facility] Blood, UA Positive Negative - 50 Chuy/mcL [facility] Comment on above: trace-intact Clarity, UA Clear [facility] Color, UA Yellow [facility] Glucose, UA Negative Negative - 2000(110) ++++ mg/dL [facility] Interpretation and review of laboratory results Abnormal [facility] Ketones, UA Negative Negative - 160(16) ++++ mg/dL [facility] Leukocytes, UA Negative Negative - 500+++ Sadi/mcL [facility] Nitrite, UA Negative Negative - Positive [facility] pH, UA 7 5 - 9 [facility] Protein, UA Negative Negative - 2000(20) ++++ mg/dL [facility] Spec Grav, UA 1.025 1 - 1.03 [facility] Urobilinogen, UA 0.2 0.2 - 12 mg/dL [facility] US OB TRANSVAGINALon 025 US OB TRANSVAGINAL [...] II, MD, PHD at 05-Aug-2024 09:13:53 AM [facility] Normal Not Available Comment on above: Order Comment: US OB TRANSVAGINAL No LMP recorded. TBH PREG QUANT HCGon 025 HCG QUANTITATIVE 98166 mIU/mL [facility] Comment on above: 5-50 0.2-1 WEEK 50-500 1-2 WEEKS 100-5,000 2-3 WEEKS 500-10,000 3-4 WEEKS 1,000-50,000 4-5 WEEKS 10,000-100,000 5-6 WEEKS 15,000-200,000 6-8 WEEKS 10,000-100,000 [facility] PREG QUANT HCGon 025 HCG QUANTITATIVE 34905 mIU/mL [facility] Comment on above: 5-50 0.2-1 WEEK 50-500 1-2 WEEKS 100-5,000 2-3 WEEKS 500-10,000 3-4 WEEKS 1,000-50,000 4-5 WEEKS 10,000-100,000 5-6 WEEKS 15,000-200,000 6-8 WEEKS 10,000-100,000 2-3 MONTHS CLINISYNC [facility] Urinalysis macro (dipstick) panel (U)on 07-15-2023 Bilirubin, UA Negative Negative - 4(70) +++ mg/dL [facility] Blood, UA Negative Negative - 50 Chuy/mcL [facility] Clarity, UA Clear [facility] Color, UA Yellow [facility] Glucose, UA Negative Negative - 1999(110) ++++ mg/dL [facility] Interpretation and review of laboratory results Normal [facility] Ketones, UA Positive Negative - 160(16) ++++ mg/dL [facility] Leukocytes, UA Negative Negative - 500+++ Sadi/mcL [facility] Nitrite, UA Negative Negative - Positive [facility] pH, UA 6.5 5 - 9 [facility] Protein, UA Negative Negative - 1999(20) ++++ mg/dL [facility] Spec Grav, UA 1.025 1 - 1.03 [facility] Urobilinogen, UA 0.2 0.2 - 12 mg/dL [facility] C-Reactive Proteinon 022 CRP [Mass/Vol] mg/L 0 - 5 mg/L [facility] CBC with Auto Differentialon 12-16-2021 Absolute Eos # 0.09 [facility] Absolute Immature Granulocyte 0.04 [facility] Absolute Lymph # 2.98 [facility] Absolute Gila # 0.51 [facility] RS [facility] Basophils (Bld) [#/Vol] 0.04 10*3/uL [facility] Basophils/100 WBC (Bld) 0 % 0 - 2 % [facility] Eosinophils/100 WBC (Bld) 1 % 1 - 4 % [facility] Hematocrit (Bld) [Volume fraction] 39.6 % 36.3 - 47.1 % [facility] Hemoglobin (Bld) [Mass/Vol] 13.1 g/dL 11.9 - 15.1 g/dL [facility] Immature granulocytes/100 WBC (Bld) 0 % 0 [facility] Lymphocytes/100 WBC (Bld) 33 % 24 - 43 % [facility] MCH (RBC) [Entitic mass] 28.2 pg 25.2 - 33.5 pg [facility] MCHC (RBC) [Mass/Vol] 33.1 g/dL 28.4 - 34.8 g/dL [facility] MCV (RBC) [Entitic vol] 85.3 fL 82.6 - 102.9 fL [facility] Monocytes/100 WBC (Bld) 6 % 3 - 12 % [facility] NRBC Automated 0.0 0.0 per 100 WBC [facility] Platelet distribution width (Bld) [Ratio] 12.0 % 11.8 - 14.4 % [facility] Platelet mean volume (Bld) [Entitic vol] 11.1 fL 8.1 - 13.5 fL [facility] Platelets (Bld) [#/Vol] 214 10*3/uL [facility] RBC (Bld) [#/Vol] 4.64 10*6/uL 3.95 - 5.1 1 m/uL [facility] Segmented neutrophils/100 WBC (Bld) 60 % 36 - 65 % [facility] Segs Absolute 5.49 [facility] WBC (Bld) [#/Vol] 9.2 10*3/uL [facility] Rheumatoid Factoron 12-17-19 22 Rheumatoid Factor <10 NINF [facility] Sedimentation Rateon 022 Sed Rate 5 [facility] Uric Acidon 12-16-2021 Urate [Mass/Vol] 4.2 mg/dL 2.4 - 5.7 mg/dL [employer] Basic Metabolic Panel w/ Ref yossi to MGOrdered By: Donny Hatfield on 10-15-2020 Anion gap [Moles/Vol] 13 mmol/L 9 - 17 mmol/L [employer] Phone: Calcium [Mass/Vol] 9.6 mg/dL 8.6 - 10. 4 mg/dL [employer] Phone: Chloride [Moles/Vol] 105 mmol/L 98 - 10 7 mmol/L [employer] Phone: CO2 [Moles/Vol] 22 mmol/L 20 - 31 mmol/L [employer]: Creatinine [Mass/Vol] 0.62 mg/dL 0.50 - 0.90 mg/dL [employer] Phone: GFR >60 >60 mL/min [email or web address]. Phone: GFR Non- >60 >60 mL/min [employer]: Glucose [Mass/Vol] 110 mg/dL High 70 - 99 mg/dL [employer] Phone: Interpretation and review of laboratory results Abnormal [employer] Phone: Potassium [Moles/Vol] 3.5 mmol/L Low 3.7 - 5.3 mmol/L [employer] Phone: Sodium [Moles/Vol] 140 mmol/L 135 - 144 mmol/L [employer] Phone: Urea nitrogen (BldV) [Mass/Vol] 12 mg/dL 6 - 20 mg/dL [employer] Phone: Urea nitrogen/Creatinine (Bld) [Mass ratio] 19 [employer] Phone: [employer] Work Phone: CBC Auto DifferentialOrdered By: Donny Hatfield on 10-15-2020 Absolute Eos # 0.19 [employer] [facility] Work Phone: Absolute Immature Granulocyte 0.06 [employer] Work Phone: Absolute Lymph # 2.50 [employer] [facility] Work Phone: Absolute Gila # 0.75 [employer] [facility] Work Phone: Basophils (Bld) [#/Vol] 0.04 10*3/uL [employer] Work Phone: Basophils/100 WBC (Bld) 0 % 0 - 2 % [employer] Phone: Differential Type NOT REPORTED [employer] Phone: Eosinophils/100 WBC (Bld) 1 % 1 - 4 % [employer] Phone: Hematocrit (Bld) [Volume fraction] 42.1 % 36.3 - 47.1 % [employer] Phone: Hemoglobin.gastrointes tinal spec 1 Ql (Stl) 14.0 g/dL 11.9 - 15.1 g/dL [employer] Phone: Immature granulocytes/100 WBC (Bld) 0 % 0 [employer] Phone: Interpretation and review of laboratory results Abnormal [employer] Phone: Lymphocytes/100 WBC (Bld) 14 % Low 24 - 43 % [employer] Phone: MCH (RBC) [Entitic mass] 28.1 pg 25.2 - 33.5 pg [employer] Phone: MCHC (RBC) [Mass/Vol] 33.3 g/dL 28.4 - 34.8 g/dL [employer] Phone: MCV (RBC) [Entitic vol] 84.4 fL 82.6 - 102.9 fL [employer] Phone: Monocytes/100 WBC (Bld) 4 % 3 - 12 % [employer] Phone: NRBC Automated 0.0 0.0 per 100 WBC [employer] Phone: Platelet distribution width (Bld) [Ratio] 11.9 % 11.8 - 14.4 % [employer] Phone: Platelet Estimate NOT REPORTED [employer] Phone: Platelet mean volume (Bld) [Entitic vol] 10.7 fL 8.1 - 13.5 fL [employer] Phone: Platelets (Bld) [#/Vol] 220 10*3/uL [employer] Phone: RBC (Bld) [#/Vol] 4.99 10*6/uL 3.95 - 5.1 1 m/uL [employer] Phone: RBC (Bld) [#/Vol] NOT REPORTED [employer] Phone: Segmented neutrophils/100 WBC (Bld) 81 % High 36 - 65 % [employer] Phone: Segs Absolute 14.20 High [employer] Work Phone: WBC (Bld) [#/Vol] 17.7 10*3/uL High [employer] Phone: WBC (Bld) [#/Vol] NOT REPORTED [employer] Phone: E[employer] Phone: CT ABDOMEN PELVIS W IV CONTR AST Additional Contrast? NoneOrdered By: Donny Hatfield on 10-15-2020 1. Marked hepatic steatosis. 2. Hepatomegaly. 3. Mild colonic diverticulosis without evidence of diverticulitis. [employer] Phone: EXAMINATION: CT OF T HE ABDOMEN [...] subcutaneous soft tissues are unremarkable in appearance. [employer] Work Phone: Jean Marie, [facility] Incoming Radiant Results From [employer] - 10/15/2020 1:48 AM EDT EXAMINATION: CT [...] Mild colonic diverticulosis without evidence of diverticulitis. [employer] Phone: [employer] Phone: HCG Qualitative, SerumOrdere d By: Donny Hatfield on 10-15-2020 hCG Qual Negative NEGATIVE [employer] Phone: Comment on above: Specimens with hCG l evels near the threshold of the test (25 mIU/mL) may give a negative or indeterminate result. In such cases, another test should be performed with a new specimen in 48-72 hours. If early is suspected clinically in this setting, correlation with quantitative serum b-hCG level is suggested. [employer] has confirmed the use of plasma for this test. This has not been cleared or approved by the U.S. Food and Drug Administration. The FDA has determined that such clearance is not necessary. [employer] Phone: Hepatic Function PanelOrdere d By: Donny Hatfield on 10-15-2020 Albumin [Mass/Vol] 4.6 g/dL 3.5 - 5.2 g/dL [employer] Phone: Albumin/Globulin [Mass ratio] 1.6 {ratio} [employer] Phone: ALP (Bld) [Catalytic activity/Vol] 59 U/L 35 - 104 U/L [employer] Phone: ALT [Catalytic activity/Vol] 38 U/L High 5 - 33 U/L [employer] Phone: AST [Catalytic activity/Vol] 24 U/L <32 [employer] Phone: Bilirubin [Mass/Vol] 0.48 mg/dL 0.3 - 1 .2 mg/dL [employer] Phone: Bilirubin, Indirect CANNOT BE CALCULATED 0.00 - 1.00 mg/dL [employer] Phone: Bilirubin.indirect [Mass/Vol] mg/dL <0.31 mg/dL [employer] Phone: Free PSA/Total PSA [Mass fraction] 7.4 g/dL 6.4 - 8.3 g/dL [employer] Phone: Globulin NOT REPORTED 1.5 - 3.8 g/dL [employer] Phone: Interpretation and review of laboratory results Abnormal [employer] Phone: Laboratory - Chemistry and C hemistry - challengeOrdered By: Donny Hatfield on 10-15-2020 GFR/1.73 sq M.predicted MDRD (S/P/Bld) [Vol rate/Area] [employer] Phone: Comment on above: Average GFR for 20-2 9 years old: 116 mL/min/1.73sq m Chronic Kidney Disease: <60 mL/min/1.73sq m Kidney failure: <15 mL/min/1.73sq m eGFR calculated using average adult body mass. Additional eGFR calculator available at: http://www.[employer]/multiple_crcl_2012.htm Stage 1: Some kidney damage normal GFR Stage 2: Mild kidney damage GFR 60-89 Stage 3: Moderate kidney damage GFR 30-59 Stage 4: Severe kidney damage GFR 15-29 Stage 5: Severe kidney damage GFR <15 ESRD - chronic treatment by dialysis or transplant Lactic Acid, PlasmaOrdered B y: Donny Hatfield on 10-15-2020 Lactate [Moles/Vol] 1.1 mmol/L 0.5 - 2. 2 mmol/L [employer] Work Phone: Lactic Acid, Whole Blood NOT REPORTED 0.7 - 2.1 mmol/L [employer] Phone: [employer] Phone: LipaseOrdered By: Cuco on 10-15-2020 Lipase [Catalytic activity/Vol] 27 U/L 13 - 60 U/L [employer] Phone: MagnesiumOrdered By: Donny Hatfield on 10-15-2020 Magnesium [Mass/Vol] 1.8 mg/dL 1.6 - 2 .6 mg/dL [employer] Phone: [employer] Phone: Microscopic UrinalysisOrdere d By: Donny Hatfield on 10-15-2020 - [employer] Work Phone: Amorphous, UA NOT REPORTED None [employer] [facility] Work Phone: Bacteria, UA 1+ Abnormal None [employer] Work Phone: Casts UA NOT REPORTED /LPF [employer] Work Phone: Crystals, UA NOT REPORTED None /HPF [employer] [facility] Work Phone: Epithelial Cells UA 2 TO 5 [employer] Work Phone: Interpretation and review of laboratory results Abnormal [employer] Work Phone: Mucus, UA 1+ Abnormal None [facility] Work Phone: Other Observations UA NOT REPORTED NOT REQ. [facility] Work Phone: RBC, UA 2 TO 5 [facility] Work Phone: Renal Epithelial, UA NOT REPORTED 0 /HPF [facility] Work Phone: Trichomonas, UA NOT REPORTED None [facility] Work Phone: WBC, UA 0 TO 2 [facility] Work Phone: Yeast, UA NOT REPORTED None [facility] Work Phone: [facility] Work Phone: No Panel InformationOrdered By: Donny Hatfield on 10-15-2020 [facility] Work Phone: Urinalysis Reflex to Culture Ordered By: Donny Hatfield on 10-15-2020 Bilirubin Urine Negative NEGATIVE [facility] Work Phone: Color, UA YELLOW YELLOW [facility] Work Phone: Glucose, Ur Negative NEGATIVE [facility] Work Phone: Interpretation and review of laboratory results Abnormal [facility] Work Phone: Ketones Ql (U) Negative NEGATIVE [facility] Work Phone: Leukocyte esterase Test strip Ql (U) Negative NEGATIVE [facility] Work Phone: Nitrite, Urine Negative NEGATIVE [facility] Work Phone: pH, UA 5.0 [facility] Work Phone: Protein, UA Negative NEGATIVE [facility] Work Phone: Specific [place], UA 1.010 [facility] Work Phone: Turbidity UA CLEAR CLEAR [facility] Work Phone: Urinalysis Comments NOT REPORTED [facility] Work Phone: Urine Hgb 2+ Abnormal NEGATIVE [employer] Phone: Urobilinogen, Urine Normal Normal [facility] Phone: [employer] Phone: Comp Metabolic Profon 2020 (cont.) Normal [facility] Comment on above: Result Comment: Aver age GFR for 20-29 years old: 116 mL/min/1.73sq m Chronic Kidney Disease: <60 mL/min/1.73sq m Kidney failure: <15 mL/min/1.73sq m eGFR calculated using average adult body mass. Additional eGFR calculator available at: http://www.[employer]Archon/multiple_crcl_2011.htm Performed By: #### L IPRF, CDP, CP, TSHX #### [employer] [address] [place] [id number] Safety And Health Consultant: Chtao Aguirre MD Albumin [Mass/Vol] 4.3 g/dL Normal 3.5-5.2 [facility] Comment on above: Performed By: #### L IPRF, CDP, CP, TSHX #### [employer] [address] [place] [address] Safety And Health Consultant: Chato Aguirre MD Albumin/Glob Ratio 1.3 Normal 1.0-2.5 [facility] Comment on above: Performed By: #### L IPRF, CDP, CP, TSHX #### [employer] [address] [place] [address] Safety And Health Consultant: Chato Aguirre MD Alkaline Phos 49 U/L Normal 35-104 [facility] Comment on above: Performed By: #### L IPRF, CDP, CP, TSHX #### [employer] [address] [place] [address] Safety And Health Consultant: Chato Aguirre MD ALT [Catalytic activity/Vol] 36 U/L High 5-33 [facility] Comment on above: Performed By: #### L IPRF, CDP, CP, TSHX #### [facility] [employer] [address] [place] [address] Safety And Health Consultant: Chato Aguirre MD Anion gap [Moles/Vol] 11 mmol/L Normal 9-17 [facility] Comment on above: Performed By: #### L IPRF, CDP, CP, TSHX #### [address] [address] Safety And Health Consultant: Chato Aguirre MD AST [Catalytic activity/Vol] 27 U/L Normal <32 [facility] Comment on above: Performed By: #### L IPRF, CDP, CP, TSHX #### [address] [address] Safety And Health Consultant: Chato Aguirre MD Bilirubin [Mass/Vol] 0.34 mg/dL Normal 0.3-1.2 [facility] Comment on above: Performed By: #### L IPRF, CDP, CP, TSHX #### [address] [address] Safety And Health Consultant: Chato Aguirre MD Calcium [Mass/Vol] 9.5 mg/dL Normal 8.6-10.4 [facility] Comment on above: Performed By: #### L IPRF, CDP, CP, TSHX #### [address] [address] Safety And Health Consultant: Chato Aguirre MD Chloride [Moles/Vol] 102 mmol/L Normal 98-107 [facility] Comment on above: Performed By: #### L IPRF, CDP, CP, TSHX #### [facility] [employer] [address] [place] [address] Safety And Health Consultant: Chato Aguirre MD CO2 [Moles/Vol] 22 mmol/L Normal 20-31 [facility] Comment on above: Performed By: #### L IPRF, CDP, CP, TSHX #### [facility] [employer] [address] [place] [address] Safety And Health Consultant: Chato Aguirre MD Creatinine [Mass/Vol] 0.46 mg/dL Low 0.50-0.90 [facility] Comment on above: Performed By: #### L IPRF, CDP, CP, TSHX #### [address] [address] Safety And Health Consultant: Chato Aguirre MD GFR, Amer >60 Normal >60 [facility] Comment on above: Performed By: #### L IPRF, CDP, CP, TSHX #### [address] [address] Safety And Health Consultant: Chato Aguirre MD GFR,non Amer >60 Normal >60 [facility] Comment on above: Performed By: #### L IPRF, CDP, CP, TSHX #### [facility] [employer] [address] [place] [address] Safety And Health Consultant: Chato Aguirre MD Glucose [Mass/Vol] 92 mg/dL Normal 70-99 [facility] Comment on above: Performed By: #### L IPRF, CDP, CP, TSHX #### [address] [address] Safety And Health Consultant: Chato Aguirre MD Potassium [Moles/Vol] 4.2 mmol/L Normal 3.7-5.3 [facility] Comment on above: Performed By: #### L IPRF, CDP, CP, TSHX #### [facility] [employer] [address] [place] [phone] Safety And Health Consultant: Chato Aguirre MD Protein [Mass/Vol] 7.5 g/dL Normal 6.4-8.3 [facility] Comment on above: Performed By: #### L IPRF, CDP, CP, TSHX #### [employer] [address] [place] [address] [phone] Safety And Health Consultant: Chato Aguirre MD Sodium [Moles/Vol] 135 mmol/L Normal 135-144 [facility] Comment on above: Performed By: #### L IPRF, CDP, CP, TSHX #### [facility] [address] [place] [phone] Safety And Health Consultant: Chato Aguirre MD Urea nitrogen [Mass/Vol] 11 mg/dL Normal 6-20 [facility] Comment on above: Performed By: #### L IPRF, CDP, CP, TSHX #### [facility] [employer] [address] [place] [phone] Safety And Health Consultant: Chato Aguirre MD Lipid Prof, Fastingon 2020 Cholesterol [Mass/Vol] 186 mg/dL Normal <200 [facility] Comment on above: Result Comment: Cholesterol Guidelines: <200 Desirable 200-240 Borderline >240 Undesirable Performed By: #### L IPRF, CDP, CP, TSHX #### [facility] [address] [place] [phone] Safety And Health Consultant: Chato Aguirre MD Cholesterol in HDL [Mass/Vol] 49 mg/dL Normal >40 [facility] Comment on above: Result Comment: HDL Guidelines: <40 Undesirable 40-59 Borderline >59 Desirable Performed By: #### L IPRF, CDP, CP, TSHX #### [facility] [employer] [address] [place] [phone] Safety And Health Consultant: Chato Aguirre MD Cholesterol in LDL [Mass/Vol] 102 mg/dL Normal 0-130 [facility] Comment on above: Result Comment: LDL Guidelines: <100 Desirable 100-129 Near to/above Desirable 130-159 Borderline >159 Undesirable Direct (measured) LDL and calculated LDL are not interchangeable tests. Performed By: #### L IPRF, CDP, CP, TSHX #### [employer] [address] [place] [phone] Safety And Health Consultant: Chato Aguirre MD Cholesterol.total/Chol esterol in HDL [Mass ratio] 3.8 {ratio} Normal <5 [facility] Comment on above: Performed By: #### L IPRF, CDP, CP, TSHX #### [employer] [facility] [place], [place] [phone] Safety And Health Consultant: Chato Aguirre MD Triglyceride,Fasting 173 mg/dL High <150 [facility] Comment on above: Result Comment: Triglyceride Guidelines: <150 Desirable 150-199 Borderline 200-499 High >499 Very high Based on AHA Guidelines for fasting triglyceride, February 2012. Performed By: #### L IPRF, CDP, CP, TSHX #### [facility] [address] [place] [address] [phone] Safety And Health Consultant: Chato Aguirre MD TSH w/reflex to FT4on 2020 TSH Qn 3.38 m[IU]/L Normal 0.30-5.00 [facility] Comment on above: Performed By: #### L IPRF, CDP, CP, TSHX #### [facility] [address] [place] [phone] Safety And Health Consultant: Chato Aguirre MD CBC Auto DifferentialOrdered By: Miguel Holley on 09-23-2020 Absolute Eos # 0.14 [employer] [facility] Work Phone: Absolute Immature Granulocyte <0.03 [employer] Work Phone: Absolute Lymph # 2.71 [employer] Work Phone: Absolute Gila # 0.48 [employer] [facility] Work Phone: Basophils (Bld) [#/Vol] 0.05 10*3/uL [employer] Work Phone: Basophils/100 WBC (Bld) 1 % 0 - 2 % [employer] Work Phone: Differential Type NOT REPORTED [facility] Phone: Eosinophils/100 WBC (Bld) 2 % 1 - 4 % [employer] Phone: Hematocrit (Bld) [Volume fraction] 42.9 % 36.3 - 47.1 % [employer] Phone: Hemoglobin.gastrointes tinal spec 1 Ql (Stl) 13.5 g/dL 11.9 - 15.1 g/dL [employer] Phone: Immature granulocytes/100 WBC (Bld) 0 % 0 [employer] Phone: Lymphocytes/100 WBC (Bld) 30 % 24 - 43 % [employer] Phone: MCH (RBC) [Entitic mass] 27.6 pg 25.2 - 33.5 pg [employer] Phone: MCHC (RBC) [Mass/Vol] 31.5 g/dL 28.4 - 34.8 g/dL [employer] Phone: MCV (RBC) [Entitic vol] 87.6 fL 82.6 - 102.9 fL [employer] Phone: Monocytes/100 WBC (Bld) 5 % 3 - 12 % [employer] Phone: NRBC Automated 0.0 0.0 per 100 WBC [employer] Phone: Platelet distribution width (Bld) [Ratio] 12.4 % 11.8 - 14.4 % [employer] Phone: Platelet Estimate NOT REPORTED [employer] Phone: Platelet mean volume (Bld) [Entitic vol] 11.6 fL 8.1 - 13.5 fL [employer] Phone: Platelets (Bld) [#/Vol] 246 10*3/uL [employer] Phone: RBC (Bld) [#/Vol] 4.90 10*6/uL 3.95 - 5.1 1 m/uL [employer] Phone: RBC (Bld) [#/Vol] NOT REPORTED [employer] Phone: Segmented neutrophils/100 WBC (Bld) 62 % 36 - 65 % [employer] Work Phone: Segs Absolute 5.79 [employer] Work Phone: WBC (Bld) [#/Vol] 9.2 10*3/uL [employer] Work Phone: WBC (Bld) [#/Vol] NOT REPORTED [employer] Phone: CBC with Diffon 09-23-2020 Abs. Basophil 0.05 k/uL Normal 0.00-0.20 [facility] Comment on above: Performed By: #### L IPRF, CDP, CP, TSHX #### [facility] [employer] [address] [place] [address] Safety And Health Consultant: Chato Aguirre MD Abs.Imm.Granulocyte <0.03 Normal 0.00-0.30 [facility] Comment on above: Performed By: #### L IPRF, CDP, CP, TSHX #### [employer] [address] [place] [address] Safety And Health Consultant: Chato Aguirre MD Abs.Neutrophil (Seg) 5.79 k/uL Normal 1.50-8.10 [facility] Comment on above: Performed By: #### L IPRF, CDP, CP, TSHX #### [employer] [address] [place] [address] Safety And Health Consultant: Chato Aguirre MD Basophils/100 WBC (Bld) 1 % Normal 0-2 [facility] Comment on above: Performed By: #### L IPRF, CDP, CP, TSHX #### [facility] [address] [place] [address] Safety And Health Consultant: Chato Aguirre MD Eosinophils (Bld) [#/Vol] 0.14 10*3/uL Normal 0.00-0.44 [facility] Comment on above: Performed By: #### L IPRF, CDP, CP, TSHX #### [facility] [address] [place] [phone] Safety And Health Consultant: Chato Aguirre MD Eosinophils/100 WBC (Bld) 2 % Normal 1-4 [facility] Comment on above: Performed By: #### L IPRF, CDP, CP, TSHX #### [facility] [employer] [address] [place] [phone] Safety And Health Consultant: Chato Aguirre MD Erythrocyte distribution width (RBC) [Ratio] 12.4 % Normal 11.8-14.4 [facility] Comment on above: Performed By: #### L IPRF, CDP, CP, TSHX #### [facility] [employer] [address] [place] [address] Safety And Health Consultant: Chato Aguirre MD Hematocrit (Bld) [Volume fraction] 42.9 % Normal 36.3-47.1 [facility] Comment on above: Performed By: #### L IPRF, CDP, CP, TSHX #### [facility] [employer] [address] [place] [address] Safety And Health Consultant: Chato Aguirre MD Hemoglobin (Bld) [Mass/Vol] 13.5 g/dL Normal 11.9-15.1 [facility] Comment on above: Performed By: #### L IPRF, CDP, CP, TSHX #### [facility] [employer] [address] [place] [address] Safety And Health Consultant: Chato Aguirre MD Immature granulocytes/100 WBC (Bld) 0 % Normal 0 [facility] Comment on above: Performed By: #### L IPRF, CDP, CP, TSHX #### [facility] [employer] [address] [place] [address] Safety And Health Consultant: Chato Aguirre MD Lymphocytes (Bld) [#/Vol] 2.71 10*3/uL Normal 1.10-3.70 [facility] Comment on above: Performed By: #### L IPRF, CDP, CP, TSHX #### [address] [address] Safety And Health Consultant: Chato Aguirre MD Lymphocytes/100 WBC (Bld) 30 % Normal 24-43 [facility] Comment on above: Performed By: #### L IPRF, CDP, CP, TSHX #### [address] [address] Safety And Health Consultant: Chato Aguirre MD MCH (RBC) [Entitic mass] 27.6 pg Normal 25.2-33.5 [facility] Comment on above: Performed By: #### L IPRF, CDP, CP, TSHX #### [place] [address] Safety And Health Consultant: Chato Aguirre MD MCHC (RBC) [Mass/Vol] 31.5 g/dL Normal 28.4-34.8 [facility] Comment on above: Performed By: #### L IPRF, CDP, CP, TSHX #### [place] [address] Safety And Health Consultant: Chato Aguirre MD MCV (RBC) [Entitic vol] 87.6 fL Normal 82.6-102.9 [facility] Comment on above: Performed By: #### L IPRF, CDP, CP, TSHX #### [place] [address] Safety And Health Consultant: Chato Aguirre MD Monocytes (Bld) [#/Vol] 0.48 10*3/uL Normal 0.10-1.20 [facility] Comment on above: Performed By: #### L IPRF, CDP, CP, TSHX #### [address] [address] Safety And Health Consultant: Chato Aguirre MD Monocytes/100 WBC (Bld) 5 % Normal 3-12 [facility] Comment on above: Performed By: #### L IPRF, CDP, CP, TSHX #### [address] [address] Safety And Health Consultant: Chato Aguirre MD Neutrophil (Seg) 62 % Normal 36-65 [facility] Comment on above: Performed By: #### L IPRF, CDP, CP, TSHX #### [address] [address] Safety And Health Consultant: Chato Aguirre MD NRBC Automated 0.0 per 100 WBC Normal 0.0 [facility] Comment on above: Performed By: #### L IPRF, CDP, CP, TSHX #### [address] [address] Safety And Health Consultant: Chato Aguirre MD Platelet mean volume (Bld) [Entitic vol] 11.6 fL Normal 8.1-13.5 [facility] Comment on above: Performed By: #### L IPRF, CDP, CP, TSHX #### [address] [address] Safety And Health Consultant: Chato Aguirre MD Platelets (Bld) [#/Vol] 246 10*3/uL Normal 138-453 [facility] Comment on above: Performed By: #### L IPRF, CDP, CP, TSHX #### [address] [address] Safety And Health Consultant: Chato Aguirre MD RBC (Bld) [#/Vol] 4.90 10*6/uL Normal 3.95-5.11 [facility] Comment on above: Performed By: #### L IPRF, CDP, CP, TSHX #### [address] [address] Safety And Health Consultant: Chato Aguirre MD WBC (Bld) [#/Vol] 9.2 10*3/uL Normal 3.5-11.3 [facility] Comment on above: Performed By: #### L IPRF, CDP, CP, TSHX #### [address] [address] Safety And Health Consultant: Chato Aguirre MD Auto Diff Performed NOT REPORTED Normal [facility] Comment on above: Performed By: #### L IPRF, CDP, CP, TSHX #### [address] [address] Safety And Health Consultant: Chato Aguirre MD Platelet Estimate NOT REPORTED Normal [facility] Comment on above: Performed By: #### L IPRF, CDP, CP, TSHX #### [address] [address] Safety And Health Consultant: Chato Aguirre MD RBC morphology finding Nom (Bld) NOT REPORTED Normal [facility] Comment on above: Performed By: #### L IPRF, CDP, CP, TSHX #### [facility] [employer] [address] [place] [address] Safety And Health Consultant: Chato Aguirre MD WBC Morphology NOT REPORTED Normal [facility] Comment on above: Performed By: #### L IPRF, CDP, CP, TSHX #### [facility] [employer] [address] [place] [address] Safety And Health Consultant: Chato Aguirre MD Comp Metabolic Profon 2020 BUN/CRE Ratio NOT REPORTED Normal 02-17 [facility] Comment on above: Performed By: #### L IPRF, CDP, CP, TSHX #### [facility] [employer] [address] [place] [address] Safety And Health Consultant: Chato Aguirre MD Staging: NOT REPORTED Normal [facility] Comment on above: Performed By: #### L IPRF, CDP, CP, TSHX #### [employer] [facility] [address] [phone] Safety And Health Consultant: Chato Aguirre MD Comprehensive Metabolic Pane lOrdered By: Miguel Holley on 09-23-2020 Albumin [Mass/Vol] 4.3 g/dL 3.5 - 5.2 g/dL [employer] Phone: Albumin/Globulin [Mass ratio] 1.3 {ratio} [employer] Phone: ALP (Bld) [Catalytic activity/Vol] 49 U/L 35 - 104 U/L [employer] Phone: ALT [Catalytic activity/Vol] 36 U/L High 5 - 33 U/L [employer] Phone: Anion gap [Moles/Vol] 11 mmol/L 9 - 17 mmol/L [employer] Phone: AST [Catalytic activity/Vol] 27 U/L <32 [employer] Phone: Bilirubin [Mass/Vol] 0.34 mg/dL 0.3 - 1 .2 mg/dL [employer] Phone: Calcium [Mass/Vol] 9.5 mg/dL 8.6 - 10. 4 mg/dL [employer] Phone: Chloride [Moles/Vol] 102 mmol/L 98 - 10 7 mmol/L [employer] Phone: CO2 [Moles/Vol] 22 mmol/L 20 - 31 mmol/L [employer] Phone: Creatinine [Mass/Vol] 0.46 mg/dL Low 0.50 - 0.90 mg/dL [employer] Phone: Free PSA/Total PSA [Mass fraction] 7.5 g/dL 6.4 - 8.3 g/dL [employer] Phone: GFR >60 >60 mL/min [email or web address]. Phone: GFR Non- >60 >60 mL/min [employer] Phone: GFR/1.73 sq M.predicted MDRD (S/P/Bld) [Vol rate/Area] [employer] Phone: Comment on above: Average GFR for 20-2 9 years old: 116 mL/min/1.73sq m Chronic Kidney Disease: <60 mL/min/1.73sq m Kidney failure: <15 mL/min/1.73sq m eGFR calculated using average adult body mass. Additional eGFR calculator available at: http://www.MEDArchon/multiple_crcl_2012.htm GFR/1.73 sq M.predicted MDRD (S/P/Bld) [Vol rate/Area] NOT REPORTED [employer] Phone: Glucose [Mass/Vol] 92 mg/dL 70 - 99 mg/dL [employer] Phone: Potassium [Moles/Vol] 4.2 mmol/L 3.7 - 5.3 mmol/L [employer] Phone: Sodium [Moles/Vol] 135 mmol/L 135 - 144 mmol/L [employer] Phone: Urea nitrogen (BldV) [Mass/Vol] 11 mg/dL 6 - 20 mg/dL [employer] Phone: Urea nitrogen/Creatinine (Bld) [Mass ratio] NOT REPORTED [employer] Phone: Laboratory - Chemistry and C hemistry - challengeOrdered By: Miguel Holley on 09-23-2020 Albumin [Mass/Vol] 4.3 g/dL (3.5-5.2 ) [facility] Work Phone: Comment on above: Note: Responsible Ob stave mill hand: [employer] AUTOFILE (9811) ALT [Catalytic activity/Vol] 36 U/L High (5-33 ) [facility] Work Phone: Comment on above: Note: Responsible Ob stave mill hand: CEEV [employer] (3003) Anion gap [Moles/Vol] 11 mmol/L (9-17 ) [facility] Work Phone: Comment on above: Note: Responsible Ob stave mill hand: CEEV [employer]OFILE (3003) AST [Catalytic activity/Vol] 27 U/L (<32 ) [facility] Work Phone: Comment on above: Note: Responsible Ob stave mill hand: CEEV [employer] (3003) Bilirubin [Mass/Vol] 0.34 mg/dL (0.3-1.2 ) [facility] Work Phone: Comment on above: Note: Responsible Ob stave mill hand: CEEV [employer] (3003) Calcium [Mass/Vol] 9.5 mg/dL (8.6-10.4 ) [facility] Work Phone: Comment on above: Note: Responsible Ob stave mill hand: [employer]EEV [employer] (3003) Chloride [Moles/Vol] 102 mmol/L (98-107 ) [facility] Work Phone: Comment on above: Note: Responsible Ob stave mill hand: CEEV [employer] (3003) Cholesterol [Mass/Vol] 186 mg/dL (<200 ) [facility] Work Phone: Comment on above: Note: Cholesterol Gu idelines:<200 [id number] Borderline>240 UndesirableResponsible Observer: CEEV [employer] (3003) Cholesterol.total/Chol esterol in HDL [Mass ratio] 3.8 {ratio} (<5 ) [facility] Work Phone: Comment on above: Note: Responsible Ob stave mill hand: CEEV [employer] (3003) CO2 [Moles/Vol] 22 mmol/L (20-31 ) [facility] Work Phone: Comment on above: Note: Responsible Ob stave mill hand: CEEV [employer] (3003) Creatinine [Mass/Vol] 0.46 mg/dL Low (0.50- 0.90 ) [facility] Work Phone: Comment on above: Note: Responsible Ob stave mill hand: CEEV [employer] (3003) Glucose [Mass/Vol] 92 mg/dL (70-99 ) [facility] Work Phone: Comment on above: Note: Responsible Ob stave mill hand: CEEV [employer] (3003) Magnesium [Mass/Vol] 49 mg/dL (>40 ) [facility] Work Phone: Comment on above: Note: HDL Guidelines :<40 [id number] Borderline>59 DesirableResponsible Observer: ABBIEEV AUTOFILE (3003) Magnesium [Mass/Vol] 102 mg/dL (0-130 ) [facility] Work Phone: Comment on above: Note: LDL Guidelines :<100 [id number] Near to/above [id number] Borderline>159 UndesirableDirect (measured) LDL and calculated LDL are not interchangeable tests.Responsible Observer: ABBIEEV [employer] (3003) Magnesium [Mass/Vol] 173 mg/dL High (<150 ) [facility] Work Phone: Comment on above: Note: Triglyceride G uidelines:<150 [id number] High>499 Very highBased on AHA Guidelines for fasting triglyceride, February 2012.Responsible Observer: ABBIEEV [employer] (3003) Potassium [Moles/Vol] 4.2 mmol/L (3.7-5.3 ) [facility] Work Phone: Comment on above: Note: Responsible Ob stave mill hand: CEEV [employer] (3003) Protein [Mass/Vol] 7.5 g/dL (6.4-8.3 ) [facility] Work Phone: Comment on above: Note: Responsible Ob stave mill hand: CEEV [employer]OFILE (3003) Sodium [Moles/Vol] 135 mmol/L (135-144 ) [facility] Work Phone: Comment on above: Note: Responsible Ob stave mill hand: CEEV [employer] (3003) Urea nitrogen [Mass/Vol] 11 mg/dL (6-20 ) [facility] Work Phone: Comment on above: Note: Responsible Ob stave mill hand: CEEV [employer] (3003) Laboratory - Hematology and Cell countsOrdered By: Miguel Holley on 09-23-2020 Basophils/100 WBC (Bld) 1 % (0-2 ) [facility] Work Phone: Comment on above: Note: Responsible Ob stave mill hand: XNV [employer] (3018) Eosinophils (Bld) [#/Vol] 0.14 10*3/uL (0.00-0.44 ) [facility] Work Phone: Comment on above: Note: Responsible Ob stave mill hand: XNV [employer] (3018) Eosinophils/100 WBC (Bld) 2 % (1-4 ) [facility] Work Phone: Comment on above: Note: Responsible Ob stave mill hand: XNV [employer] (3018) Erythrocyte distribution width (RBC) [Ratio] 12.4 % (11.8-14.4 ) [facility] Work Phone: Comment on above: Note: Responsible Ob stave mill hand: XNV AUTOFILE (3018) Hematocrit (Bld) [Volume fraction] 42.9 % (36.3-47.1 ) [facility] Work Phone: Comment on above: Note: Responsible Ob stave mill hand: XNV AUTOFILE (3018) Hemoglobin (Bld) [Mass/Vol] 13.5 g/dL (11.9-15.1 ) [facility] Work Phone: Comment on above: Note: Responsible Ob stave mill hand: XNV [employer]OFILE (3018) Immature granulocytes/100 WBC (Bld) 0 % (0 ) [facility] Work Phone: Comment on above: Note: Responsible Ob stave mill hand: XNV [employer] (3018) Lymphocytes (Bld) [#/Vol] 2.71 10*3/uL (1.10-3.70 ) [facility] Work Phone: Comment on above: Note: Responsible Ob stave mill hand: XNV [employer] (3018) Lymphocytes/100 WBC (Bld) 30 % (24-43 ) [facility] Work Phone: Comment on above: Note: Responsible Ob stave mill hand: [employer]NV [employer] (3018) MCH (RBC) [Entitic mass] 27.6 pg (25.2-33.5 ) [facility] Work Phone: Comment on above: Note: Responsible Ob stave mill hand: XNV [employer] (3018) MCHC (RBC) [Mass/Vol] 31.5 g/dL (28.4- 34.8 ) [facility] Work Phone: Comment on above: Note: Responsible Ob stave mill hand: XNV [employer] (3018) MCV (RBC) [Entitic vol] 87.6 fL (82.6-102.9 ) [facility] Work Phone: Comment on above: Note: Responsible Ob stave mill hand: XNV [employer]OFILE (3018) Monocytes (Bld) [#/Vol] 0.48 10*3/uL (0.10-1.20 ) [facility] Work Phone: Comment on above: Note: Responsible Ob stave mill hand: XNV [employer] (3018) Monocytes/100 WBC (Bld) 5 % (3-12 ) [facility] Work Phone: Comment on above: Note: Responsible Ob stave mill hand: [employer] (3018) Platelet mean volume (Bld) [Entitic vol] 11.6 fL (8.1-13.5 ) [facility] Work Phone: Comment on above: Note: Responsible Ob stave mill hand: XNV [employer] (3018) Platelets (Bld) [#/Vol] 246 10*3/uL (138-453 ) [facility] Work Phone: Comment on above: Note: Responsible Ob stave mill hand: [employer]NV [employer] (301) RBC (Bld) [#/Vol] 4.90 10*6/uL (3.95-5.11 ) [facility] Work Phone: Comment on above: Note: Responsible Ob stave mill hand: [employer] (3017) RBC morphology finding Nom (Bld) NOT REPORTED [facility] Work Phone: Segmented neutrophils/100 WBC (Bld) 62 % (36-65 ) [facility] Work Phone: Comment on above: Note: Responsible Ob stave mill hand: XNV [employer]FILE (3017) WBC (Bld) [#/Vol] 9.2 10*3/uL (3.5-11.3 ) [facility] Work Phone: Comment on above: Note: Responsible Ob stave mill hand: XNV [employer] (3017) Lipid Prof, Fastingon 2020 Cholesterol,VLDL NOT REPORTED Normal 06-29 [facility] Comment on above: Performed By: #### L IPRF, CDP, CP, TSHX #### [employer] [address] [place], [place] [id number] Safety And Health Consultant: Chato Aguirre MD Lipid, FastingOrdered By: Zandra Holley on 09-23-2020 Cholesterol [Mass/Vol] 186 mg/dL <200 [employer] Work Phone: Comment on above: Cholesterol Guidelines: <200 Desirable 200-240 Borderline >240 Undesirable Cholesterol in HDL [Mass/Vol] 49 mg/dL >40 [employer] Phone: Comment on above: HDL Guidelines: <40 Undesirable 40-59 Borderline >59 Desirable Cholesterol in LDL [Mass/Vol] 102 mg/dL 0 - 130 mg/dL [employer] Phone: Comment on above: LDL Guidelines: <100 Desirable 100-129 Near to/above Desirable 130-159 Borderline >159 Undesirable Direct (measured) LDL and calculated LDL are not interchangeable tests. Cholesterol in VLDL [Mass/Vol] NOT REPORTED High 1 - 30 mg/dL [employer] Phone: Cholesterol.total/Chol esterol in HDL [Mass ratio] 3.8 {ratio} <5 [facility] [employer] Phone: Triglyceride, Fasting 173 mg/dL High <150 [facility] [employer] Work Phone: Comment on above: Triglyceride Guidelines: <150 Desirable 150-199 Borderline 200-499 High >499 Very high Based on AHA Guidelines for fasting triglyceride, February 2012. No Panel InformationOrdered By: Miguel Holley on 09-23-2020 Interpretation and review of laboratory results Abnormal [facility] Phone: (cont.) See Note [facility] Work Phone: Comment on above: Note: Average GFR fo r 20-29 years old:116 mL/min/1.73sq mChronic Kidney Disease:<60 mL/min/1.73sq mKidney failure:<15 mL/min/1.73sq meGFR calculated using average adult body mass. Additional eGFR calculatoravailable at:http://www.MEDArchon/multiple_crcl_2011.htmResponsible Observer: CEG[employer]ISON AUTOFILE (3003) Abs. Basophil 0.05 k/uL (0.00-0.20 ) [facility] Work Phone: Comment on above: Note: Responsible Ob stave mill hand: XNV [employer]FILE (301) Abs.Imm.Granulocyte <0.03 k/uL (0.00-0. 30 ) [facility] Work Phone: Comment on above: Note: Responsible Ob stave mill hand: XNV [employer]FILE (437) Abs.Neutrophil (Seg) 5.79 k/uL (1.50-8 .10 ) [facility] Work Phone: Comment on above: Note: Responsible Ob stave mill hand: XNV AUTOFILE (283) Albumin/Glob Ratio 1.3 (1.0-2.5 ) [facility] Work Phone: Comment on above: Note: Responsible Ob stave mill hand: CEEV AUT[employer]FILE (3003) Alkaline Phos 49 U/L (35-104 ) [facility] Work Phone: Comment on above: Note: Responsible Ob stave mill hand: CEEV AUTOFILE (3003) Auto Diff Performed NOT REPORTED [facility] Work Phone: BUN/CRE Ratio NOT REPORTED (9-20 ) [facility] Work Phone: Cholesterol,VLDL NOT REPORTED mg/dL (1-30 ) [facility] Work Phone: GFR, Amer >60 mL/min (>60 ) [facility] Work Phone: Comment on above: Note: Responsible Ob stave mill hand: CEEV AUTOFILE (3003) GFR,non Amer >60 mL/min (>60 ) [facility] Work Phone: Comment on above: Note: Responsible Ob stave mill hand: CEEV [employer]OFILE (3003) NRBC Automated 0.0 per_100_WBC (0.0 ) [facility] Work Phone: Comment on above: Note: Responsible Ob stave mill hand: XNV [employer]FILE (3018) Platelet Estimate NOT REPORTED [facility] Work Phone: Reported Physicians See Note [facility] Work Phone: Comment on above: Note: Reported Physi cians:Ordering: Cotton, AimeeAttending: Cotton, AimeeReferring: Cotton, Miguel Staging: NOT REPORTED [facility] Work Phone: Thyroid Stim. Horm. 3.38 mIU/L (0.30-5. 00 ) [facility] Work Phone: Comment on above: Note: Responsible Ob stave mill hand: CEEV [employer]FILE (3003) WBC Morphology NOT REPORTED [facility] Work Phone: TSH with ReflexOrdered By: Kamryn Holley on 09-23-2020 TSH Qn 3.38 m[IU]/L [facility] Work Phone: APTTon 04-08-2020 aPTT Coag (Bld) [Time] 25.2 s Me [place], [place] Comment on above: IV Heparin Therapy Range: 62.0-94.0 Brain Natriuretic Peptideon 04-08-2020 Natriuretic peptide B (Bld) [Mass/Vol] pg/mL <300 pg/mL [place] Comment on above: Pro-BNP results ayse ot be compared to BNP results. Natriuretic peptide B (Bld) [Mass/Vol] Pro-BNP Reference Range: [place] Comment on above: Rule Out: <300 Weaver Zone: Age <50 300-450 Age 50-75 300-900 Age >75 300-1800 Usually represents mild to moderate HF but other cardiopulmonary causes cannot be ruled out. Rule In: Age <50 >450 Age 50-75 >900 Age >75 >1800 CBCon 04-08-2020 Erythrocyte distribution width (RBC) [Ratio] 11.9 % 11.8 - 14.4 % [place] Hematocrit (Bld) [Volume fraction] 37.9 % 36.3 - 47.1 % [place] Hemoglobin (Bld) [Mass/Vol] 12.5 g/dL 11.9 - 15.1 g/dL [place] MCH (RBC) [Entitic mass] 27.8 pg 25.2 - 33.5 pg [place] MCHC (RBC) [Mass/Vol] 33.0 g/dL 28.4 - 34.8 g/dL [place] MCV (RBC) [Entitic vol] 84.2 fL 82.6 - 102.9 fL [place] Platelet mean volume (Bld) [Entitic vol] 10.9 fL 8.1 - 13.5 fL [place] Platelets (Bld) [#/Vol] 184 10*3/uL [place] RBC (Bld) [#/Vol] 4.50 10*6/uL 3.95 - 5.1 1 m/uL [place] WBC (Bld) [#/Vol] 7.8 10*3/uL [place] WBC (Bld) [#/Vol] 0.0 10*3/uL 0.0 per 10 0 WBC [place] COVID-19on 04-08-2020 Interpretation and review of laboratory results Abnormal [place] SARS-CoV-2, Rapid DETECTED Abnormal Not Detected [place] Comment on above: Rapid NAAT: The [...] this assay. Fact sheet for Healthcare Providers: https://www.fda.gov/media/291352/download Fact sheet for Patients: https://www.fda.gov/media/515288/download Methodology: Isothermal Nucleic Acid Amplification Results reported to the appropriate Health Department Source .NASOPHARYNGEAL SWAB [place] CT CHEST PULMONARY EMBOLISM W CONTRASTon 04-08-2020 Unremarkable appeara nce of the chest with no evidence of pulmonary embolism and clear lungs. Incidentally noted hepatic fatty infiltration. [place] EXAMINATION: CTA OF THE CHEST 04/08/2020 [...] No significant osseous or soft tissue abnormality. [place] Jean Marie, Mhpn Incoming Radiant Results From [facility] - 04/08/2020 4:12 PM EST EXAMINATION: CTA [...] clear lungs. Incidentally noted hepatic fatty infiltration. [place] Comprehensive Metabolic Pane fermin 04-08-2020 Albumin [Mass/Vol] 4.1 g/dL 3.5 - 5.2 g/dL [place] Albumin/Globulin [Mass ratio] 1.4 {ratio} [place] ALP [Catalytic activity/Vol] 62 U/L 35 - 104 U/L [place] ALT [Catalytic activity/Vol] 19 U/L 5 - 33 U/L [place] Anion gap [Moles/Vol] 10 mmol/L 9 - 17 mmol/L [place] AST [Catalytic activity/Vol] 20 U/L <32 [place] Bilirubin Ql (U) 0.48 mg/dL 0.3 - 1.2 mg/dL [place] Bun/Cre Ratio 23 High [place] Calcium [Mass/Vol] 8.9 mg/dL 8.6 - 10. 4 mg/dL [place] Chloride [Moles/Vol] 102 mmol/L 98 - 10 7 mmol/L [place] CO2 [Moles/Vol] 23 mmol/L 20 - 31 mmol/L [place] Creatinine [Mass/Vol] 0.47 mg/dL Low 0.5 - 0.9 mg/dL [place] GFR >60 >60 mL/min [place] GFR Non- >60 >60 mL/min [place] Glucose [Mass/Vol] 88 mg/dL 70 - 99 mg/dL [place] Interpretation and review of laboratory results Abnormal [place] Potassium [Moles/Vol] 3.7 mmol/L 3.7 - 5.3 mmol/L [place] Protein [Mass/Vol] 7.1 g/dL 6.4 - 8.3 g/dL [place] Sodium [Moles/Vol] 135 mmol/L 135 - 144 mmol/L [place] Urea nitrogen [Mass/Vol] 11 mg/dL 6 - 20 mg/dL [place] Metabolic Panelon 04-08-2020 GFR/1.73 sq M predicted among non-blacks MDRD (S/P/Bld) [Vol rate/Area] [place] Comment on above: Stage 1: Some [...] body mass. Additional eGFR calculator available at: http://www.PinoyTravel.Perfect Pizza/multiple_crcl_2012.htm Otheron 04-08-2020 SARS-CoV-2 [place] , Urineon 0 Beta HCG ( test) Ql (U) Negative NEGATIVE [place] Comment on above: Specimens with hCG l evels near the threshold of the test (25 mIU/mL) may give a negative or indeterminate result. In such cases, another test should be performed with a new specimen in 48-72 hours. If early is suspected clinically in this setting, correlation with quantitative serum b-hCG level is suggested. [employer] has confirmed the use of plasma for this test. This has not been cleared or approved by the U.S. Food and Drug Administration. The FDA has determined that such clearance is not necessary. Protime-INRon 04-08-2020 INR Coag (PPP) [Relative time] 1.0 {INR} [place] Comment on above: Non-therapeutic Range: INR = 0.9-1.2 Therapeutic Range: Moderate Anticoagulant Intensity: INR = 2.0-3.0 High Anticoagulant Intensity: INR = 2.5-3.5 PT Coag (PPP) [Time] 13.2 s [place] Troponinon 04-08-2020 Troponin I.cardiac [Mass/Vol] NOT REPORTED [place] Troponin T.cardiac [Mass/Vol] NOT REPORTED <0.03 ng/mL [place] Troponin, High Sensitivity <6 0 - 14 ng/L [place] Comment on above: High Sensitivity Troponin values cannot be compared with other Troponin methodologies. Patients with high levels of Biotin oral intake (i.e >5mg/day) may have falsely decreased Troponin levels. Samples collected within 8 hours of biotin intake may require additional information for diagnosis. CBC Auto Differentialon Basophils (Bld) [#/Vol] 0.05 10*3/uL [facility] Phone: Basophils/100 WBC (Bld) 1 % 0 - 2 % [employer] Phone: Differential Type NOT REPORTED [employer] Phone: Eosinophils (Bld) [#/Vol] 0.15 10*3/uL [facility] Phone: Eosinophils/100 WBC (Bld) 1 % 1 - 4 % [employer]ved Phone: Erythrocyte distribution width (RBC) [Ratio] 12.1 % 11.8 - 14.4 % [employer] Phone: Hematocrit (Bld) [Volume fraction] 44.5 % 36.3 - 47.1 % [employer] Phone: Hemoglobin (Bld) [Mass/Vol] 14.0 g/dL 11.9 - 15.1 g/dL [employer] Phone: Immature granulocytes (Bld) [#/Vol] 0 % 0 [employer] Phone: Immature granulocytes (Bld) [#/Vol] 10*3/uL [employer] Phone: Interpretation and review of laboratory results Abnormal [employer] Phone: Lymphocytes (Bld) [#/Vol] 2.83 10*3/uL [employer] Phone: Lymphocytes/100 WBC (Bld) 27 % 24 - 43 % [employer] Phone: MCH (RBC) [Entitic mass] 27.6 pg 25.2 - 33.5 pg [employer] Phone: MCHC (RBC) [Mass/Vol] 31.5 g/dL 28.4 - 34.8 g/dL [employer] Phone: MCV (RBC) [Entitic vol] 87.6 fL 82.6 - 102.9 fL [employer] Phone: Monocytes (Bld) [#/Vol] 0.52 10*3/uL [employer] Phone: Monocytes/100 WBC (Bld) 5 % 3 - 12 % [employer] Phone: Platelet mean volume (Bld) [Entitic vol] 12.0 fL 8.1 - 13.5 fL [employer] Phone: Platelets (Bld) [#/Vol] NOT REPORTED [employer] Work Phone: Platelets (Bld) [#/Vol] 241 10*3/uL [employer] Work Phone: RBC (Bld) [#/Vol] 5.08 10*6/uL 3.95 - 5.1 1 m/uL [employer] Work Phone: RBC morphology finding Nom (Bld) NOT REPORTED [employer] Work Phone: Segmented neutrophils/100 WBC (Bld) 66 % High 36 - 65 % [employer] Work Phone: Segs Absolute 7.04 [employer] [facility] Work Phone: WBC (Bld) [#/Vol] 10.6 10*3/uL [employer] Work Phone: WBC (Bld) [#/Vol] 0.0 10*3/uL 0.0 per 10 0 WBC [employer] Work Phone: WBC Morphology NOT REPORTED Tereza [facility] Work Phone: [facility]acon 07-06-2019 Cholesterol [Mass/Vol] 198 mg/dL (<200) [facility] Work Phone: Comment on above: Note: Cholesterol Gu idelines:<200 [id number] Borderline>240 UndesirableResponsible Observer: CCEV AUTOFILE (4828) Comprehensive Metabolic Pane fermin 07-06-2019 Albumin [Mass/Vol] 4.5 g/dL 3.5 - 5.2 g/dL [employer] Work Phone: Albumin/Globulin [Mass ratio] 1.4 {ratio} [employer] Work Phone: ALP [Catalytic activity/Vol] 62 U/L 35 - 104 U/L [employer] Work Phone: ALT [Catalytic activity/Vol] 39 U/L High 5 - 33 U/L [employer] Phone: Anion gap [Moles/Vol] 16 mmol/L 9 - 17 mmol/L [employer] Phone: AST [Catalytic activity/Vol] 32 U/L High <32 [employer] Phone: Bilirubin Ql (U) 0.25 mg/dL Low 0.3 - 1.2 mg/dL [employer] Phone: Bun/Cre Ratio NOT REPORTED [facility] Work Phone: Calcium [Mass/Vol] 9.8 mg/dL 8.6 - 10. 4 mg/dL [employer] Phone: Chloride [Moles/Vol] 103 mmol/L 98 - 10 7 mmol/L [employer] Phone: CO2 [Moles/Vol] 19 mmol/L Low 20 - 31 mmol/L [employer] Phone: Creatinine [Mass/Vol] 0.51 mg/dL 0.5 - 0.9 mg/dL [employer] Phone: GFR >60 >60 mL/min [email or web address]. Phone: GFR Non- >60 >60 mL/min [employer] Phone: GFR/1.73 sq M predicted among non-blacks MDRD (S/P/Bld) [Vol rate/Area] [employer] Phone: Comment on above: Average GFR for 20-2 9 years old: 116 mL/min/1.73sq m Chronic Kidney Disease: <60 mL/min/1.73sq m Kidney failure: <15 mL/min/1.73sq m eGFR calculated using average adult body mass. Additional eGFR calculator available at: http://www.PinoyTravel.Perfect Pizza/multiple_crcl_2012.htm GFR/1.73 sq M predicted among non-blacks MDRD (S/P/Bld) [Vol rate/Area] NOT REPORTED [employer] Phone: Glucose [Mass/Vol] 89 mg/dL 70 - 99 mg/dL [employer] Phone: Interpretation and review of laboratory results Abnormal [employer] Phone: Potassium [Moles/Vol] 4.6 mmol/L 3.7 - 5.3 mmol/L [employer] Phone: Protein [Mass/Vol] 7.8 g/dL 6.4 - 8.3 g/dL [employer] Phone: Sodium [Moles/Vol] 138 mmol/L 135 - 144 mmol/L [employer] Phone: Urea nitrogen [Mass/Vol] 14 mg/dL 6 - 20 mg/dL [employer] Phone: Hematologyon 07-06-2019 Basophils/100 WBC (Bld) 1 % (0-2) [facility] Work Phone: Comment on above: Note: Responsible Ob stave mill hand: XNV AUTOFILE (3018) Eosinophils (Bld) [#/Vol] 0.15 10*3/uL (0.00-0.44) [facility] Work Phone: Comment on above: Note: Responsible Ob stave mill hand: XNV AUTOFILE (3018) Eosinophils/100 WBC (Bld) 1 % (1-4) [facility] Work Phone: Comment on above: Note: Responsible Ob stave mill hand: XNV AUTOFILE (3018) Hematocrit (Bld) [Volume fraction] 44.5 % (36.3-47.1) [facility] Work Phone: Comment on above: Note: Responsible Ob stave mill hand: XNV AUTOFILE (3018) Hemoglobin (Bld) [Mass/Vol] 14.0 g/dL (11.9-15.1) [facility] Work Phone: Comment on above: Note: Responsible Ob stave mill hand: XNV AUTOFILE (3018) Lymphocytes (Bld) [#/Vol] 2.83 10*3/uL (1.10-3.70) [facility] Work Phone: [phone] Comment on above: Note: Responsible Ob stave mill hand: XNV AUTOFILE (3018) Lymphocytes/100 WBC (Bld) 27 % (24-43) [facility] Work Phone: Comment on above: Note: Responsible Ob stave mill hand: XNV AUTOFILE (3018) MCH (RBC) [Entitic mass] 27.6 pg (25.2-33.5) [facility] Work Phone: Comment on above: Note: Responsible Ob stave mill hand: XNV AUTOFILE (3018) MCV (RBC) [Entitic vol] 87.6 fL (82.6-102.9 ) [facility] Work Phone: Comment on above: Note: Responsible Ob stave mill hand: XNV AUTOFILE (3018) Monocytes (Bld) [#/Vol] 0.52 10*3/uL (0.10-1.20) [facility] Work Phone: Comment on above: Note: Responsible Ob stave mill hand: XNV AUTOFILE (3018) Monocytes/100 WBC (Bld) 5 % (3-12) [facility] Work Phone: Comment on above: Note: Responsible Ob stave mill hand: XNV AUTOFILE (3018) Platelets (Bld) [#/Vol] NOT REPORTED [facility] Work Phone: [phone] Platelets (Bld) [#/Vol] 241 10*3/uL (138-453) [facility] Work Phone: Comment on above: Note: Responsible Ob stave mill hand: XNV AUTOFILE (3018) RBC (Bld) [#/Vol] 5.08 10*6/uL (3.95-5.11) [facility] Work Phone: Comment on above: Note: Responsible Ob stave mill hand: XNV AUTOFILE (3018) RBC morphology finding Nom (Bld) NOT REPORTED [facility] Work Phone: WBC (Bld) [#/Vol] 0.0 per_100_WBC (0.0) [facility] Work Phone: Comment on above: Note: Responsible Ob stave mill hand: XNV AUTOFILE (2765) WBC (Bld) [#/Vol] 10.6 10*3/uL (3.5-11.3) [facility] Work Phone: Comment on above: Note: Responsible Ob stave mill hand: XNV AUTOFILE (5313) Lipid, Fastingon 07-06-2019 Cholesterol [Mass/Vol] 198 mg/dL <200 [employer] Phone: Comment on above: Cholesterol Guidelines: <200 Desirable 200-240 Borderline >240 Undesirable Cholesterol in HDL [Mass/Vol] 53 mg/dL >40 [facility] Phone: Comment on above: HDL Guidelines: <40 Undesirable 40-59 Borderline >59 Desirable Cholesterol in LDL [Mass/Vol] 118 mg/dL 0 - 130 mg/dL [facility] Phone: Comment on above: LDL Guidelines: <100 Desirable 100-129 Near to/above Desirable 130-159 Borderline >159 Undesirable Direct (measured) LDL and calculated LDL are not interchangeable tests. Cholesterol in VLDL [Mass/Vol] NOT REPORTED 1 - 30 mg/dL [facility] Phone: Cholesterol.total/Chol esterol in HDL [Mass ratio] 3.7 {ratio} <5 [facility] Phone: Triglyceride, Fasting 135 mg/dL <150 [facility] [employer] Phone: Comment on above: Triglyceride Guidelines: <150 Desirable 150-199 Borderline 200-499 High >499 Very high Based on AHA Guidelines for fasting triglyceride, February 2012. Metabolic Panelon 07-06-2019 Albumin [Mass/Vol] 4.5 g/dL (3.5-5.2) [facility] Work Phone: Comment on above: Note: Responsible Ob stave mill hand: CCEV AUTOFILE (3002) ALT [Catalytic activity/Vol] 39 U/L High (5-33) [facility] Work Phone: Comment on above: Note: Responsible Ob stave mill hand: CCEV AUTOFILE (3002) Anion gap [Moles/Vol] 16 mmol/L (9-17) [facility] Work Phone: Comment on above: Note: Responsible Ob stave mill hand: CCEV AUTOFILE (3002) AST [Catalytic activity/Vol] 32 U/L High (<32) [facility] Work Phone: Comment on above: Note: Responsible Ob stave mill hand: CCEV AUTOFILE (3002) Bilirubin [Mass/Vol] 0.25 mg/dL Low (0.3-1.2) [facility] Work Phone: Comment on above: Note: Responsible Ob stave mill hand: CCEV AUTOFILE (3002) Calcium [Mass/Vol] 9.8 mg/dL (8.6-10.4) [facility] Work Phone: Comment on above: Note: Responsible Ob stave mill hand: CCEV AUTOFILE (3002) Chloride [Moles/Vol] 103 mmol/L (98-107) [facility] Work Phone: Comment on above: Note: Responsible Ob stave mill hand: CCEV AUTOFILE (3002) CO2 [Moles/Vol] 19 mmol/L Low (20-31) [facility] Work Phone: Comment on above: Note: Responsible Ob stave mill hand: CCEV AUTOFILE (3002) Creatinine [Mass/Vol] 0.51 mg/dL (0.50-0.90) [facility] Work Phone: Comment on above: Note: Responsible Ob stave mill hand: CCEV AUTOFILE (3002) Glucose [Mass/Vol] 89 mg/dL (70-99) [facility] Work Phone: Comment on above: Note: Responsible Ob stave mill hand: CCEV AUTOFILE (3002) Potassium [Moles/Vol] 4.6 mmol/L (3.7-5.3) [facility] Work Phone: Comment on above: Note: Responsible Ob stave mill hand: CCEV AUTOFILE (3002) Protein [Mass/Vol] 7.8 g/dL (6.4-8.3) [facility] Work Phone: Comment on above: Note: Responsible Ob stave mill hand: CCEV AUTOFILE (3002) Sodium [Moles/Vol] 138 mmol/L (135-144) [facility] Work Phone: Comment on above: Note: Responsible Ob stave mill hand: CCEV AUTOFILE (3002) Urea nitrogen [Mass/Vol] 14 mg/dL (6-20) [facility] Work Phone: Comment on above: Note: Responsible Ob stave mill hand: CCEV AUTOFILE (3002) Otheron 07-06-2019 (cont.) See Note [facility] Work Phone: Comment on above: Note: Average GFR fo r 20-29 years old:116 mL/min/1.73sq mChronic Kidney Disease:<60 mL/min/1.73sq mKidney failure:<15 mL/min/1.73sq meGFR calculated using average adult body mass. Additional eGFR calculatoravailable at:http://www.PinoyTravel.Perfect Pizza/multiple_crcl_2012.htmResponsible Observer: CCEV AUTOFILE (3002) Abs. Basophil 0.05 k/uL (0.00-0.20) [facility] Work Phone: Comment on above: Note: Responsible Ob stave mill hand: XNV AUTOFILE (3018) Abs.Imm.Granulocyte <0.03 k/uL (0.00-0.30) [facility] Work Phone: Comment on above: Note: Responsible Ob stave mill hand: XNV AUTOFILE (3018) Abs.Neutrophil (Seg) 7.04 k/uL (1.50-8.10) [facility] Work Phone: Comment on above: Note: Responsible Ob stave mill hand: XNV AUTOFILE (3018) Albumin/Glob Ratio 1.4 (1.0-2.5) [facility] Work Phone: Comment on above: Note: Responsible Ob stave mill hand: CCEV AUTOFILE (3002) Alkaline Phos 62 U/L (35-104) [facility] Work Phone: Comment on above: Note: Responsible Ob stave mill hand: CCEV AUTOFILE (3002) Auto Diff Performed NOT REPORTED [facility] Work Phone: [phone] BUN/CRE Ratio NOT REPORTED (9-20) [facility] Work Phone: Cholesterol,HDL 53 mg/dL (>40) [facility] Work Phone: Comment on above: Note: HDL Guidelines :<40 Jvebxrhufro41-32 Borderline>59 DesirableResponsible Observer: CCEV AUTOFILE (3002) Cholesterol,LDL 118 mg/dL (0-130) [facility] Work Phone: Comment on above: Note: LDL Guidelines :<100 [id number] Near to/above Dxvkvmyxx292-182 Borderline>159 UndesirableDirect (measured) LDL and calculated LDL are not interchangeable tests.Responsible Observer: CCEV AUTOFILE (3002) Cholesterol,VLDL NOT REPORTED mg/dL (1-30) [facility] Work Phone: Cholesterol.total/Chol esterol in HDL [Mass ratio] 3.7 {ratio} (<5) [facility] Work Phone: Comment on above: Note: Responsible Ob stave mill hand: CCEV AUTOFILE (3002) Erythrocyte distribution width (RBC) [Ratio] 12.1 % (11.8-14.4) [facility] Work Phone: Comment on above: Note: Responsible Ob stave mill hand: XNV AUTOFILE (3018) Free Insulin 34 uIU/mL High (3-19) [facility] Work Phone: Comment on above: Note: Responsible Ob stave mill hand: LAB [facility]UP (0603) GFR, Amer >60 mL/min (>60) [facility] Work Phone: Comment on above: Note: Responsible Ob stave mill hand: CCEV AUTOFILE (3002) GFR,non Amer >60 mL/min (>60) [facility] Work Phone: [phone] Comment on above: Note: Responsible Ob stave mill hand: CCEV AUTOFILE (3002) Immature granulocytes (Bld) [#/Vol] 0 % (0) [facility] Work Phone: [phone] Comment on above: Note: Responsible Ob stave mill hand: XNV AUTOFILE (3018) MCHC (RBC) [Mass/Vol] 31.5 g/dL (28.4-34.8) [facility] Work Phone: [phone] Comment on above: Note: Responsible Ob stave mill hand: XNV AUTOFILE (3496) Performing Lab: see note [facility] Work Phone: [phone] Comment on above: Note: [facility] [address] [facility] [address] Note: [facility] [address] [facility] [id number] Platelet mean volume (Bld) [Entitic vol] 12.0 fL (8.1-13.5) [facility] Work Phone: [phone] Comment on above: Note: Responsible Ob stave mill hand: XNV AUTOFILE (5482) Reported Physicians See Note [facility] Work Phone: [phone] Comment on above: Note: Reported Physi cians:Ordering: Allyson Floyd AAttending: Everett CynthiaReferring: Allyson Floyd Segmented neutrophils/100 WBC (Bld) 66 % High (36-65) [facility] Work Phone: Comment on above: Note: Responsible Ob stave mill hand: XNV AUTOFILE (0968) Staging: NOT REPORTED [facility] Work Phone: [phone] Thyroid Stim. Horm. 4.15 mIU/L (0.30-5.00) [facility] Work Phone: Comment on above: Note: Responsible Ob stave mill hand: CCEV AUTOFILE (3002) Thyroxine, Free 1.21 ng/dL (0.93-1.70) [facility] Work Phone: Comment on above: Note: Responsible Ob stave mill hand: CCEV AUTOFILE (3002) Total Insulin 46 uIU/mL High (3-19) [facility] Work Phone: Comment on above: Note: (NOTE)INTERPRE TIVE INFORMATION: Insulin, Free and TotalThis test reacts on a nearly equimolar basis with the analogsinsulin aspart, insulin glargine, and insulin lispro. Insulindetemir exhibits approximately 50 percent cross-reactivity. Testreactivity with insulin glulisine is negligible (<3 percent). Toconvert to pmol/L, multiply uIU/mL by 6.0. Reference intervalsestablished for fasting specimens.Performed by [facility],[address] [place] [id number] get.Ditto, [place] Xiong MD, Lab. DirectorResponsible Observer: LAB KIERAN (0603) Triglyceride,Fasting 135 mg/dL (<150) [facility] Work Phone: Comment on above: Note: Triglyceride G uidelines:<150 Tpgdcrlmi155-511 Dvrkggvrup780-838 High>499 Very highBased on AHA Guidelines for fasting triglyceride, February 2012.Responsible Observer: CCEV AUTOFILE (3002) Triiodothyronine T3 150 ng/dL (80-200) [facility] Work Phone: Comment on above: Note: Responsible Ob stave mill hand: CEEV AUTOFILE (3003) WBC Morphology NOT REPORTED [facility] Work Phone: T3on 07-06-2019 T3, Total 150 ng/dL 80 - 200 ng/dL [facility] [employer] Phone: T4, Freeon 07-06-2019 Thyroxine, Free 1.21 ng/dL 0.93 - 1.7 ng/dL [employer] Phone: TSH without Reflexon 020 TSH Qn 4.15 m[IU]/L [employer] Work Phone: US NON OB TRANSVAGINALon Satisfactory IUD position. RECOMMENDATIONS: No follow-up imaging is recommended. Reference: US BPRs based on Radiology 2009;256(3):943-54; CT/MR BPRs based on J Am Joanne Radiol 2013;10:675-681. [facility] [place] EXAMINATION: PELVIC ULTRASOUND 02/02/2019 TECHNIQUE: Transvaginal [...] Free Fluid: No evidence of free fluid. [place], [place] Jean Marie, pn Incoming Radiant Results From [facility] - 02/02/2019 8:44 AM EDT EXAMINATION: PELVIC [...] based on J Am Joanne Radiol 2013;10:675-681. [facility] ROBBY PERES 08-21-2018 CNOV Office Visit ([facility] ) ----- ESTEFANIA NAVARRETE ([id number]) 1995 F Date Time Provider Department 08/21/18 12:00 PM MIGUEL TENA (ENVELOPE PATTERNMAKER) [facility] During your visit today, we recorded [...] is a safe and effective decongestant 3. Routt Nasal [place] may offer relief of nasal and head [...] help open respiratory and sinus passages. - Routt Nasal [place] may offer relief of nasal and head [...] get worse. Thank you for coming to [facility] today. I appreciate your confidence in choosing the [facility] for your medical care. Miguel Tena APRN.ENVELOPE PATTERNMAKER [facility] [address] [facility] [address] Referring Provider: SELF [200] [...] is a safe and effective decongestant 3. Routt Nasal [place] may offer relief of nasal and head [...] help open respiratory and sinus passages. - Routt Nasal [place] may offer relief of nasal and head [...] get worse. Thank you for coming to [facility] today. I appreciate your confidence in choosing the [facility] for your medical care. Miguel Tena APRN.ENVELOPE PATTERNMAKER [facility] [address] [facility] [address] Prescriptions ordered this encounter [...] PROGRESSon 08-21-2018 Protein mass conc HNO ID: [id number] Author: Miguel Hall) Radu Service: ? Author [...] 3-5 days or get worse Miguel Tena APRN.ENVELOPE PATTERNMAKER [facility] CNCOon 12-22-2017 CNCO Letter Text Erica Velazquez MD [facility] [address] [place] [address] Estefania Navarrete December 22, 2017 Estefania Navarrete [address] [facility] [address] Dear Ms. Navarrete, It was noted that you did not keep your scheduled appointment on 12-22-17. It is important to contact the office in advance if you are unable to keep your appointment so that it is available for other patients. Your medical care is important to us. Please call our office to reschedule an appointment. Sincerely, Erica Velazquez MD [facility] Consult Reporton 01-05-2017 Consult Report Patient: JITENDRA NAVARRETE Age: 21 years Sex: Female : 1995 Associated Diagnoses: None Author: TYRON MA RES, KAREN [facility] Podiatry DepartmentReason for Consult: Active Problems [...] discussed with attending physician, Dr. Jaime Shepard [phone] ically Signed by: KAREN SHEPARD DPM, RES on 01/04/2017 13:59 EDTElectronically Co-Signed by: Cecelia SHEPARD DPM, RES 01/04/2017 14:37 EDTElectronically Co-Signed by: Rene REYES DPM 01/05/2017 18:28 EDT Normal [facility] APTTon 01-04-2017 aPTT 29.9 Second(s) Normal [facility] Comment on above: Result Comment: VERI FIED by Discern Expert. Performed By: #### 1 [id number], [id number], [id number], [id number], [id number] ####[facility] [id number] [place], [place] [id number] Medical Director: David Doe MD aPTT 25.9 Second(s) Normal 25.0-36.0 [facility] Comment on above: Performed By: #### 1 [id number], [id number], [id number], [id number], [id number], [id number] ####[facility] [id number] [place] [id number]) [phone] Director: David Doe MD AUTO DIFFon 01-04-2017 Basophils Auto #/vol (Bld) 0.04 x1000 Normal 0.00-0.20 [facility] [facility] Comment on above: Performed By: #### 1 93409, 7784237, 649182, 389058, 927231, 384296 ####[facility] [address] [place] [id number]) [phone] Director: David Doe MD Basos % 0.5 % Normal [facility] Comment on above: Performed By: #### 1 69290, 6148042, 003382, 555226, 218611, 644187 ####[facility] [address]fmgy87837 [place] [address] Medical Director: David Doe MD Eos Count 0.10 x1000 Normal 0.00-0.50 [facility] Comment on above: Performed By: #### 1 64479, 5771532, 954824, 884415, 726322, 154135 ####[facility] [address]ab[address] [place] [id number]) [phone] Director: David Doe MD Eosinophils/100 leukocytes 1.0 % Normal [facility] Comment on above: Performed By: #### 1 72657, 8756138, 808838, 744720, 514394, 008391 ####[facility] Q[address]at[address] [place] [id number]) [phone] Director: David Doe MD Lymphocytes 2.84 x1000 Normal 1.20-4.80 [facility] Comment on above: Performed By: #### 1 90605, 2812916, 846171, 803550, 779815, 798572 ####[facility] Fkurmyqa11215 [place] [address] Medical Director: David oDe MD Lymphocytes/100 leukocytes 29.4 % Normal [facility] Comment on above: Performed By: #### 1 13644, 3714598, 106428, 811892, 891685, 914182 ####[facility] Fldfpfzi57216 [place] [address] Medical Director: David Doe MD Gila Count 0.68 x1000 Normal 0.10-1.00 [facility] Comment on above: Performed By: #### 1 34303, 9535945, 496138, 709002, 183822, 147195 ####[facility] [address] [place] [address] Medical Director: David Doe MD Monocytes/100 leukocytes 7.0 % Normal [facility] Comment on above: Performed By: #### 1 79123, 0024782, 476834, 112788, 747839, 380900 ####[facility] [address]kbrbtib94228 [place] [address] Medical Director: David Doe MD Neutrophils 5.98 x1000 Normal 1.40-8.80 [facility] Comment on above: Performed By: #### 1 60884, 6734922, 529189, 169608, 628612, 428597 ####[facility] Ef[address]txzx43505 [place] [address] Medical Director: David Doe MD Neutrophils/100 WBC Auto (Bld) 62.0 % Normal [facility] Comment on above: Performed By: #### 1 57350, 6443890, 000722, 300678, 066454, 868493 ####[facility] Ttewhfbp28914 [place] [address] Medical Director: David Doe MD COMPMETAon 01-04-2017 Globulin 4.0 g/dL Normal [facility] Comment on above: Performed By: #### 1 74460, 0678296, 445999, 416058, 386353, 326410 ####[facility] [address]oy04[address] [place] [address] Medical Director: David Doe MD Osmolality 277 mOsm/kg Normal 275-295 [facility] Comment on above: Performed By: #### 1 18954, 4105923, 583024, 438052, 045838, 444740 ####[facility] [address]ae[address] [place] [address] Medical Director: David Doe MD eGFR (non-black) mL/min/{1.73_m2} Normal So [facility] Comment on above: Result Comment: Afri can Cymro GFR Calc Performed By: #### 1 36110, 5367341, 392574, 097996, 656301, 965550 ####[facility] [address]wv96[address] [place] [address] Medical Director: David Doe MD Result Comment: Non GFR CalcMedical judgement is necessary to interpret GFR. The calculated GFR may not accurately reflect renal status in patients >70 years, women, acutely ill hospitalized patients and patients with acute renal failure or known renal disease.Note:Creatinine clearance (not GFR) should be used for drug dosing. Albumin/Globulin Ratio 0.8 {ratio} Normal [facility] Comment on above: Performed By: #### 1 51153, 2302799, 826624, 508769, 501391, 706835 ####[facility] [address]bl[address]ujup[address] [place] [address] Medical Director: David Doe MD BUN/Creatinine Ratio 17.6 mg/mg Normal [facility] Comment on above: Performed By: #### 1 59055, 8438080, 868415, 870889, 919349, 182742 ####[facility] [address]jinnyo70707 [place] [address] Medical Director: David Doe MD Alk Phos 61 unit/L Normal 45-117 [facility] Comment on above: Performed By: #### 1 09644, 6295399, 587770, 054720, 690840, 174584 ####[facility] Uhmpktle62840 [place] [address] Medical Director: David Doe MD Bilirubin (total) 0.41 mg/dL Normal 0.20-1.00 [facility] Comment on above: Performed By: #### 1 05909, 0244120, 139577, 199645, 938632, 870982 ####[facility] Oxhxmzpa74752 [place], [place] [id number]) [phone] Director: David Doe MD Protein 7.4 g/dL Normal 6.0-8.5 [facility] Comment on above: Performed By: #### 1 85642, 3825210, 448611, 057955, 936616, 771931 ####[facility] [address]zupgk64109 [place] [address] Medical Director: David Doe MD GPT 16 unit/L Normal 13-56 [facility] Comment on above: Result Comment: Mariposa puncture should occur prior to sulfasalazine and/or sulfapyridine administration due to the potential for falsely depressed results.Baseline assay values before administration of sulfasalazine and sulfapyridine therapy would not be affected. Performed By: #### 1 08463, 2096071, 324497, 436420, 426078, 437664 ####[facility] Asecmmwg02646 [place] [address] Medical Director: David Doe MD Creatinine 0.7 mg/dL Normal 0.6-1.0 [facility] Comment on above: Performed By: #### 1 13279, 0823797, 890263, 059203, 205368, 969860 ####[facility] [address]vwuazio50455 [place] [address] Medical Director: David Doe MD GOT 14 unit/L Low 15-37 [facility] Comment on above: Result Comment: Mariposa puncture should occur prior to sulfasalazine and/or sulfapyridine administration due to the potential for falsely depressed results.Baseline assay values before administration of sulfasalazine and sulfapyridine therapy would not be affected. Performed By: #### 1 89291, 2497853, 948393, 633806, 795720, 706423 ####[facility] [address] [place] [address] Medical Director: David Doe MD Urea nitrogen 13 mg/dL Normal 10-20 [facility] Comment on above: Performed By: #### 1 98550, 7011642, 695012, 059978, 573159, 876340 ####[facility] [address]uy[address]okbn72327 [place] [address] Medical Director: David Doe MD Glucose mass conc 86 mg/dL Normal 72-100 [facility] Comment on above: Result Comment: Mariposa puncture should occur prior to sulfasalazine administration due to the potential for falsely depressed results. Venipuncture should occur prior to sulfapyridine administration due to the potential falsely elevated results.Baseline assay values before administration of sulfasalazine and sulfapyridine therapy would not be affected. Performed By: #### 1 78617, 6331192, 286937, 624190, 747289, 588567 ####[facility] Ftsgtptb08679 [place] [address] Medical Director: David Doe MD Albumin 3.4 g/dL Normal 3.4-5.0 [facility] Comment on above: Performed By: #### 1 57283, 7750745, 898392, 562126, 361172, 683455 ####[facility] Satmpmud23637 [place] [address] Medical Director: David Doe MD CO2 19.0 mmol/L Low 21.0-32.0 [facility] Comment on above: Performed By: #### 1 96354, 6668142, 026035, 453287, 743904, 282310 ####[facility] Judvgees79599 [place], [place] [id number]) [phone] Director: David Doe MD Calcium 9.0 mg/dL Normal 8.5-10.5 [facility] Comment on above: Performed By: #### 1 93829, 4121126, 745099, 615642, 827915, 406207 ####[facility] Skasrtlh61046 [place], [place] [id number]) [phone] Director: David Doe MD Potassium molar conc 3.7 mmol/L Normal 3.5-5.1 [facility] Comment on above: Performed By: #### 1 77581, 4434565, 576126, 494979, 443079, 555250 ####[facility] Qubbayko32229 [place] [address] Medical Director: David Doe MD Sodium 139 mmol/L Normal 135-145 [facility] Comment on above: Performed By: #### 1 81146, 9622087, 531407, 478487, 677701, 660710 ####[facility] Bjxhqkcg71546 [place], [place] [id number]) [phone] Director: David Doe MD Chloride 108 mmol/L Normal 100-109 [facility] Comment on above: Performed By: #### 1 83883, 8296897, 263178, 461581, 888916, 084686 ####[facility] Pxzqcxpr84943 [place], [place] [id number]) [phone] Director: David Doe MD CT LOWER EXTREMITY [...] Damir SMITH MD Out: 01/04/17 12:59:57 Normal [facility] ED Physician Reporton 2016 ED Physician [...] No acute fracture or joint dislocation.Signature LineTechnologist: OLGA,TANADictated By: HERB AGUILAR MDSigned By: HERB AGUILAR [...] Plan Diagnosis Crush injury of right foot (FRY06-GS S97.81XA, Working, Medical) Plan Condition: Stable. Disposition: ED Discharge to Home was placed.(01/04/2017 13:39:31 EDT, Constant Order). Prescriptions: Launch prescriptions Pharmacy:Percocet 5/325 ([id number]) oral tablet (Prescribe): 1 tabs, ORAL, [id number], PRN: for pain, 24 tabs, 0 Refill(s)doxycycline hyclate 100 mg oral tablet (Prescribe): 100 mg = 1 tabs, ORAL, BID, for 10 days, 20 tabs, 0 Refill(s). Patient was given the following educational materials: Cryotherapy, Upfo-ek-Cftf, Compartment Syndrome of the Foot, Compartment Syndrome of the Foot, Cryotherapy, Pfwb-ku-Kotz. Follow up with: 837 FAMILY PHYSICIAN Within [...] by: Selene GALVAN MD 01/04/2017 14:19 Normal [facility] ED Progress Noteon 7 ED Progress [...] medicatedsig other at bedsidepodiatry coming to see [id number] ASSUMED CARE OF PT, REPORT RECEIVED FROM [...] a little dizzy after trying crutches. Normal [facility] HCGon 01-04-2017 HCG, Qual <1.0 Normal [facility] Comment on above: Result Comment: 0 - 3 Negative3 - 50 Inconclusive>50 Positive Performed By: #### 1 13247, 5035088, 920969, 767945, 537644, 059325 ####[facility] Luswinwn65409 [place] [address] Medical Director: David Doe MD HEMOon 01-04-2017 DIFF? No Normal [facility] Comment on above: Performed By: #### 1 63862, 7651284, 682021, 837834, 852265, 771976 ####[facility] [address]qfovoj11493 [place] [address] Medical Director: David Doe MD Erythrocyte distribution width Auto Ratio (RBC) 13.3 % Normal 11.5-14.5 [facility] Comment on above: Performed By: #### 1 81934, 7561003, 064613, 239670, 668080, 447591 ####[facility] Jytujcks90777 [place], [place] [id number]) [phone] Director: David Doe MD Erythrocytes (RBC) 4.80 x10 Normal 4.20-5.40 [facility] Comment on above: Result Comment: Note : RBC morphology is normal unless otherwise stated. Evaluation performed only if differential is requested. Performed By: #### 1 71592, 1563692, 839523, 665980, 874433, 441070 ####[facility] Ypnyxbwg24967 [place], [place] [address]) [phone] Director: David Doe MD Hematocrit (HCT) 39.0 % Normal 36.0-46.0 [facility] Comment on above: Performed By: #### 1 21291, 3253838, 344610, 753330, 068404, 426709 ####[facility] Znkemkuz42537 [place], [place] [id number]) [phone] Director: David Doe MD Hemoglobin mass conc (Bld) 13.1 g/dL Normal 12.0-16.0 [facility] Comment on above: Performed By: #### 1 10515, 6045999, 304734, 199389, 413456, 699284 ####[facility] Ltwiltnw33963 [place] [address] Medical Director: David Doe MD MCH 27.3 pg Normal 27.0-34.0 [facility] Comment on above: Performed By: #### 1 02758, 8143412, 856668, 274947, 181000, 850024 ####[facility] Jzqgfplc40322 [place], [place] [id number]) [phone] Director: David Doe MD MCHC mass conc (RBC) 33.6 g/dL Normal 32.0-37.0 [facility] Comment on above: Performed By: #### 1 23789, 0195539, 808637, 525738, 078275, 317372 ####[facility] Fnmqdure27525 [place] [address] Medical Director: David Doe MD MCV 81.3 fL Normal 80.0-100.0 [facility] Comment on above: Performed By: #### 1 92412, 7458145, 987994, 588988, 333329, 588403 ####[facility] Rogybvau67632 [place] [address] Medical Director: David Doe MD Nucleated RBC% 0 /100WC Normal [facility] Comment on above: Performed By: #### 1 34057, 5579167, 337351, 148061, 550380, 304348 ####[facility] Mzznuser97669 [place] [address] Medical Director: David Doe MD Platelet mean volume (PMV) 9.4 fL Normal 7.4-10.4 [facility] Comment on above: Performed By: #### 1 59736, 8234735, 276613, 134501, 455936, 921834 ####[facility] Tanmcuaz05708 [place] [address] Medical Director: David Doe MD Platelets 238 x1000 Normal 150-450 [facility] Comment on above: Performed By: #### 1 34481, 2621086, 407938, 390361, 370461, 945739 ####[facility] Ppmeuibm50083 [place] [address] Medical Director: David Doe MD WBC (Leukocytes) 9.6 10*3/uL Normal [facility] Comment on above: Performed By: #### 1 01291, 3161464, 414810, 447973, 842641, 062147 ####[facility] Nzkewydi29143 [place] [address] Medical Director: David Doe MD WBC (Leukocytes) 9.6 x10 Normal 4.5-11.0 [facility] Comment on above: Performed By: #### 1 26916, 9732538, 039003, 035232, 291954, 322184 ####[facility] Yxffugge91774 [place] [address] Medical Director: David Doe MD PT INRon 01-04-2017 Protime Median 11.1 Second(s) Normal [facility] Comment on above: Result Comment: VERI FIED by Discern Expert. Performed By: #### 1 27299, 1173443, 845568, 326772, 170691, 635366 ####[facility] Knbemhal66844 [place] [address] Medical Director: David Doe MD INR Coag RelTime (PPP) 1.0 {INR} Normal So [facility] Comment on above: Result Comment: Norm al reference range for INR on patients not on anticoagulant therapy: 0.9-1.1. General therapeutic range for patients on anticoagulant therapy: 2.0-3.5. Performed By: #### 1 60233, 3718262, 775370, 335844, 430957, 809877 ####[facility] Ubstnldu05327 [place] [address] Medical Director: David Doe MD Protime Patient 11.3 Second(s) Normal 9.8-12.7 [facility] Comment on above: Performed By: #### 1 98969, 7695833, 108914, 064068, 618329, 105418 ####[facility] Bdnzvjze42125 [place] [address] Medical Director: David Doe MD XR FOOT [...] acute fracture or joint dislocation.Technologist: OLGA,TANADictated By: Jose Alberto AGUILAR MD By: Jose Alberto AGUILAR MD Out: 01/04/17 11:49:07 Normal [facility] Vital Signs Date Time Vital Sign Value Performing Clinician Facility 02-06-2025 09:29-0400 Body mass index (BMI) [Ratio] 43.38 kg/m2 [facility] Work Phone: [facility] 02-06-2025 09:29-0400 Body weight 125.65 kg [facility] Work Phone: [facility] 02-06-2025 09:29-0400 Diastolic blood pressure 78 mm[Hg] Aditya Billy Somewhere Work Phone: [facility] 02-06-2025 09:29-0400 Systolic blood pressure 126 mm[Hg] Aditya Billy DO Work Phone: [facility] 01-23-2025 09:44-0400 Body mass index (BMI) [Ratio] 43.35 kg/m2 Latasha KULKARNI Work Phone: [facility] 01-23-2025 09:44-0400 Body weight 125.56 kg Latasha KULKARNI Work Phone: [facility] 01-23-2025 09:44-0400 Diastolic blood pressure 74 mm[Hg] Latasha KULKARNI Work Phone: [facility] 01-23-2025 09:44-0400 Systolic blood pressure 122 mm[Hg] Latasha KULKARNI Work Phone: [facility] 12-27-2024 10:35-0400 Body mass index (BMI) [Ratio] 42.88 kg/m2 Latasha KULKARNI Work Phone: [facility] 12-27-2024 10:35-0400 Body weight 124.19 kg Latasha KULKARNI Work Phone: [facility] 12-27-2024 10:35-0400 Diastolic blood pressure 74 mm[Hg] Latasha KULKARNI Work Phone: [facility] 12-27-2024 10:35-0400 Systolic blood pressure 122 mm[Hg] Latasha KULKARNI Work Phone: [facility] 12-13-2024 13:51-0400 Body mass index (BMI) [Ratio] 43.07 kg/m2 Aditya Billy DO Work Phone: [facility] 12-13-2024 13:51-0400 Body weight 124.74 kg Aditya Billy DO Work Phone: [facility] 12-13-2024 13:51-0400 Diastolic blood pressure 70 mm[Hg] Aditya Billy DO Work Phone: [facility] 12-13-2024 13:51-0400 Systolic blood pressure 128 mm[Hg] Aditya Billy DO Work Phone: [facility] 11-22-2024 14:29-0400 Body mass index (BMI) [Ratio] 42.57 kg/m2 Aditya Billy DO Work Phone: [facility] 11-22-2024 14:29-0400 Body weight 123.29 kg Aditya Billy DO Work Phone: [facility] 11-22-2024 14:29-0400 Diastolic blood pressure 78 mm[Hg] Aditya Billy DO Work Phone: [facility] 11-22-2024 14:29-0400 Systolic blood pressure 128 mm[Hg] Aditya Billy DO Work Phone: [facility] 10-25-2024 09:07-0400 Body mass index (BMI) [Ratio] 41.86 kg/m2 Latasha KULKARNI Work Phone: [facility] 10-25-2024 09:07-0400 Body weight 121.22 kg Latasha KULKARNI Work Phone: [facility] 10-25-2024 09:07-0400 Diastolic blood pressure 82 mm[Hg] Latasha KULKARNI Work Phone: [facility] 10-25-2024 09:07-0400 Systolic blood pressure 108 mm[Hg] Latasha KULKARNI Work Phone: [facility] 09-26-2024 10:24-0400 Body mass index (BMI) [Ratio] 41.62 kg/m2 Aditya Billy DO Work Phone: [facility] 09-26-2024 10:24-0400 Body weight 120.54 kg Aditya Billy DO Work Phone: [facility] 09-26-2024 10:24-0400 Diastolic blood pressure 76 mm[Hg] Aditya Billy DO Work Phone: [facility] 09-26-2024 10:24-0400 Systolic blood pressure 124 mm[Hg] Aditya Billy DO Work Phone: [facility] 08-29-2024 09:23-0400 Body mass index (BMI) [Ratio] 41.47 kg/m2 Aditya Billy DO Work Phone: [facility] 08-29-2024 09:23-0400 Body weight 120.11 kg Aditya Billy DO Work Phone: [facility] 08-29-2024 09:23-0400 Diastolic blood pressure 66 mm[Hg] Aditya Billy DO Work Phone: [facility] 08-29-2024 09:23-0400 Systolic blood pressure 122 mm[Hg] Aditya Billy DO Work Phone: [facility] 06-14-2024 09:05-0500 Body mass index (BMI) [Ratio] 41.16 kg/m2 Latasha KULKARNI Work Phone: [facility] 06-14-2024 09:05-0500 Body weight 119.2 kg Latasha [place] PA Work Phone: [facility] 06-14-2024 09:05-0500 Diastolic blood pressure 74 mm[Hg] Latasha Dayron PA Work Phone: [facility] 06-14-2024 09:05-0500 Systolic blood pressure 114 mm[Hg] Latasha Dayron PA Work Phone: [facility] 05-17-2024 08:45-0500 Body mass index (BMI) [Ratio] 41.04 kg/m2 Latasha Dayron PA Work Phone: [facility] 05-17-2024 08:45-0500 Body weight 118.84 kg Latasha Dayron PA Work Phone: [facility] 05-17-2024 08:45-0500 Diastolic blood pressure 70 mm[Hg] Latasha Dayron PA Work Phone: [facility] 05-17-2024 08:45-0500 Systolic blood pressure 118 mm[Hg] Latasha [place] PA Work Phone: [facility] 04-18-2024 09:17-0500 Body mass index (BMI) [Ratio] 42.26 kg/m2 Latasha Dayron PA Work Phone: [facility] 04-18-2024 09:17-0500 Body weight 122.38 kg Latasha [place] PA Work Phone: [facility] 04-18-2024 09:17-0500 Diastolic blood pressure 76 mm[Hg] Latasha Dayron PA Work Phone: [facility] 04-18-2024 09:17-0500 Systolic blood pressure 114 mm[Hg] Latasha [place] PA Work Phone: [facility] 02-21-2024 14:13-0400 Body mass index (BMI) [Ratio] 39.47 kg/m2 Latasha Dayron PA Work Phone: [facility] 02-21-2024 14:13-0400 Body weight 114.31 kg Latasha Dayron PA Work Phone: [facility] 02-21-2024 14:13-0400 Diastolic blood pressure 74 mm[Hg] Latasha KULKARNI Work Phone: [facility] 02-21-2024 14:13-0400 Systolic blood pressure 118 mm[Hg] Latasha KULKARNI Work Phone: [facility] 07-15-2023 11:50-0500 Body mass index (BMI) [Ratio] 36.65 kg/m2 Aditya Billy DO Work Phone: [facility] 07-15-2023 11:50-0500 Body weight 106.14 kg Aditya Billy DO Work Phone: [facility] 12-04-2021 10:03-0400 Body height 173.35 cm [facility] 12-04-2021 10:03-0400 Body mass index (BMI) [Ratio] 35.22 kg/m2 [facility] 12-04-2021 10:03-0400 Body surface area Derived from formula 2.26 m2 [facility] 12-04-2021 10:03-0400 Body weight 105.83 kg [facility] 12-04-2021 10:03-0400 Diastolic blood pressure 68 mm[Hg] [facility] 12-04-2021 10:03-0400 Heart rate 68 /min [facility] 12-04-2021 10:03-0400 Systolic blood pressure 116 mm[Hg] [facility] 10-15-2020 01:15-0400 Diastolic blood pressure 71 mm[Hg] Donny Hatfield DO Work Phone: [facility] [employer] Work Phone: 10-15-2020 01:15-0400 SaO2% (BldA) [Mass fraction] 94 % Donny Andes DO Work Phone: [employer] Work Phone: 10-15-2020 01:15-0400 Systolic blood pressure 117 mm[Hg] Donny Andes DO Work Phone: [employer] Work Phone: 10-14-2020 23:18-0400 Body temperature 97.59 [degF] Donny Andes DO Work Phone: [employer] Work Phone: 10-14-2020 23:18-0400 Heart rate 98 /min Donny Andes DO Work Phone: [employer] Work Phone: 10-14-2020 23:18-0400 Respiratory rate 18 /min Donny Andes DO Work Phone: [employer] Work Phone: 09-23-2020 08:31-0400 Body height 172.72 cm Miguel Holley CNP Work Phone: [facility] Work Phone: 09-23-2020 08:31-0400 Body mass index (BMI) [Ratio] 40.9 kg/m2 Miguel Holley [employer] Work Phone: [facility] Work Phone: 09-23-2020 08:31-0400 Body surface area Derived from formula 2.32 m2 Miguel Holley [employer] Work Phone: [facility] Work Phone: 09-23-2020 08:31-0400 Body temperature 964 [degF] Miguel Holley CNP Work Phone: [facility] Work Phone: 09-23-2020 08:31-0400 Body weight 122.02 kg Miguel Holley CNP Work Phone: [facility] Work Phone: 09-23-2020 08:31-0400 Diastolic blood pressure 80 mm[Hg] Miguel Holley CNP Work Phone: [facility] Work Phone: 09-23-2020 08:31-0400 Heart rate 80 /min Miguel Holley CNP Work Phone: [facility] Work Phone: 09-23-2020 08:31-0400 Respiratory rate 18 /min Miguel Holley CNP Work Phone: [facility] Work Phone: 09-23-2020 08:31-0400 SaO2% (BldA) [Mass fraction] 98 % Miguel Holley CNP Work Phone: [facility] Work Phone: 09-23-2020 08:31-0400 Systolic blood pressure 126 mm[Hg] Miguel Holley CNP Work Phone: [facility] Work Phone: 04-08-2020 16:25-0500 Respiratory Rate 16 /min Miguel Dell [facility], [place] 04-08-2020 16:20-0500 Pulse (Heart Rate) 86 /min [facility], [place] 04-08-2020 16:20-0500 Pulse Oximetry 98 % [facility] , [place] 04-08-2020 16:00-0500 BP Diastolic 66 mm[Hg] [facility] , [place] 04-08-2020 16:00-0500 BP Systolic 121 mm[Hg] [facility] [place] 04-08-2020 13:23-0500 Body Temperature 98.4 [degF] [facility] [place] 03-19-2020 19:09-0400 BMI (Body Mass Index) 37.3 kg/m2 [facility] Work Phone: 03-19-2020 19:09-0400 Body weight 111.13 kg [facility] Work Phone: 03-19-2020 19:09-0400 BSA (Body Surface Area) 2.23 m2 [facility] Work Phone: 03-19-2020 19:09-0400 Height 172.72 cm [facility] Work Phone: 03-05-2020 08:30-0400 BMI (Body Mass Index) 37.3 kg/m2 [facility] Work Phone: 03-05-2020 08:30-0400 Body Temperature 95.4 [degF] [facility] Work Phone: 03-05-2020 08:30-0400 Body weight 111.13 kg [facility] Work Phone: 03-05-2020 08:30-0400 BP Diastolic 80 mm[Hg] [facility] Work Phone: 03-05-2020 08:30-0400 BP Systolic 120 mm[Hg] [facility] Work Phone: 03-05-2020 08:30-0400 BSA (Body Surface Area) 2.23 m2 [facility] Work Phone: 03-05-2020 08:30-0400 Height 172.72 cm [facility] Work Phone: 03-05-2020 08:30-0400 Pulse (Heart Rate) 74 /min [facility] Work Phone: 03-05-2020 08:30-0400 Pulse Oximetry 99 % [facility] Work Phone: 03-05-2020 08:30-0400 Respiratory Rate 18 /min [facility] Work Phone: 03-05-2020 08:30-0400 SaO2% (BldA) [Mass fraction] 99 % [facility] Work Phone: [facility] Work Phone: 12-05-2019 08:37-0400 BMI (Body Mass Index) 35.4 kg/m2 [facility] Work Phone: 12-05-2019 08:37-0400 Body Temperature 98.8 [degF] [facility] Work Phone: 12-05-2019 08:37-0400 Body weight 105.69 kg [facility] Work Phone: 12-05-2019 08:37-0400 BP Diastolic 72 mm[Hg] [facility] Work Phone: 12-05-2019 08:37-0400 BP Systolic 116 mm[Hg] [facility] Work Phone: 12-05-2019 08:37-0400 BSA (Body Surface Area) 2.18 m2 [facility] Work Phone: 12-05-2019 08:37-0400 Flow Rate 0 L/min [facility] Work Phone: 12-05-2019 08:37-0400 Height 172.72 cm [facility] Work Phone: 12-05-2019 08:37-0400 Inhaled Oxygen Concentration 21 % [facility] Work Phone: 12-05-2019 08:37-0400 Pulse (Heart Rate) 81 /min [facility] Work Phone: 12-05-2019 08:37-0400 Pulse Oximetry 98 % [facility] Work Phone: 12-05-2019 08:37-0400 Respiratory Rate 18 /min [facility] Work Phone: 12-05-2019 08:37-0400 SaO2% (BldA) [Mass fraction] 98 % Miguel Dell [employer] Work Phone: [facility] Work Phone: 11-06-2019 09:02-0400 BMI (Body Mass Index) 36.2 kg/m2 [facility] Work Phone: 11-06-2019 09:02-0400 Body Temperature 95.8 [degF] [facility] Work Phone: 11-06-2019 09:02-0400 Body weight 107.96 kg [facility] Work Phone: 11-06-2019 09:02-0400 BP Diastolic 80 mm[Hg] [facility] Work Phone: 11-06-2019 09:02-0400 BP Systolic 110 mm[Hg] [facility] Work Phone: 11-06-2019 09:02-0400 BSA (Body Surface Area) 2.2 m2 [facility] Work Phone: 11-06-2019 09:02-0400 Height 172.72 cm [facility] Work Phone: 11-06-2019 09:02-0400 Pulse (Heart Rate) 94 /min [facility] Work Phone: 11-06-2019 09:02-0400 Pulse Oximetry 98 % [facility] Work Phone: 11-06-2019 09:02-0400 Respiratory Rate 18 /min [facility] Work Phone: 11-06-2019 09:02-0400 SaO2% (BldA) [Mass fraction] 98 % Miguel Holley [employer] Work Phone: [facility] Work Phone: 10-12-2019 09:53-0400 BMI (Body Mass Index) 38.2 kg/m2 [facility] Work Phone: 10-12-2019 09:53-0400 Body Temperature 98.7 [degF] [facility] Work Phone: 10-12-2019 09:53-0400 Body weight 113.85 kg [facility] Work Phone: 10-12-2019 09:53-0400 BP Diastolic 82 mm[Hg] [facility] Work Phone: 10-12-2019 09:53-0400 BP Systolic 122 mm[Hg] [facility] Work Phone: 10-12-2019 09:53-0400 BSA (Body Surface Area) 2.25 m2 [facility] Work Phone: 10-12-2019 09:53-0400 Flow Rate 0 L/min [facility] Work Phone: 10-12-2019 09:53-0400 Height 172.72 cm [facility] Work Phone: 10-12-2019 09:53-0400 Inhaled Oxygen Concentration 21 % [facility] Work Phone: 10-12-2019 09:53-0400 Pulse (Heart Rate) 97 /min [facility] Work Phone: 10-12-2019 09:53-0400 Pulse Oximetry 98 % [facility] Work Phone: 10-12-2019 09:53-0400 Respiratory Rate 18 /min [facility] Work Phone: 10-12-2019 09:53-0400 SaO2% (BldA) [Mass fraction] 98 % [facility] Work Phone: [facility] Work Phone: 09-14-2019 08:35-0400 BMI (Body Mass Index) 37.7 kg/m2 [facility] Work Phone: 09-14-2019 08:35-0400 Body Temperature 96.6 [degF] [facility] Work Phone: 09-14-2019 08:35-0400 Body weight 112.49 kg [facility] Work Phone: 09-14-2019 08:35-0400 BP Diastolic 80 mm[Hg] [facility] Work Phone: 09-14-2019 08:35-0400 BP Systolic 130 mm[Hg] [facility] Work Phone: 09-14-2019 08:35-0400 BSA (Body Surface Area) 2.24 m2 [facility] Work Phone: 09-14-2019 08:35-0400 Height 172.72 cm [facility] Work Phone: 09-14-2019 08:35-0400 Pulse (Heart Rate) 81 /min [facility] Work Phone: 09-14-2019 08:35-0400 Pulse Oximetry 98 % [facility] Work Phone: 09-14-2019 08:35-0400 Respiratory Rate 18 /min [facility] Work Phone: 09-05-2019 10:26-0400 BMI (Body Mass Index) 37.3 kg/m2 [facility] Work Phone: 09-05-2019 10:26-0400 Body weight 111.13 kg [facility] Work Phone: 09-05-2019 10:26-0400 BSA (Body Surface Area) 2.23 m2 [facility] Work Phone: 09-05-2019 10:26-0400 Height 172.72 cm [facility] Work Phone: 08-17-2019 08:29-0400 BMI (Body Mass Index) 37.3 kg/m2 [facility] Work Phone: 08-17-2019 08:29-0400 Body Temperature 97.9 [degF] [facility] Work Phone: 08-17-2019 08:29-0400 Body weight 111.13 kg [facility] Work Phone: 08-17-2019 08:29-0400 BP Diastolic 80 mm[Hg] [facility] Work Phone: 08-17-2019 08:29-0400 BP Systolic 120 mm[Hg] [facility] Work Phone: 08-17-2019 08:29-0400 BSA (Body Surface Area) 2.23 m2 [facility] Work Phone: 08-17-2019 08:29-0400 Height 172.72 cm [facility] Work Phone: 08-17-2019 08:29-0400 Pulse (Heart Rate) 68 /min [facility] Work Phone: 08-17-2019 08:29-0400 Pulse Oximetry 98 % [facility] Work Phone: 08-17-2019 08:29-0400 Respiratory Rate 18 /min [facility] Work Phone: 07-20-2019 08:36-0500 BMI (Body Mass Index) 39 kg/m2 [facility] Work Phone: 07-20-2019 08:36-0500 Body Temperature 98.4 [degF] [facility] Work Phone: 07-20-2019 08:36-0500 Body weight 116.39 kg [facility] Work Phone: 07-20-2019 08:36-0500 BP Diastolic 80 mm[Hg] [facility] Work Phone: 07-20-2019 08:36-0500 BP Systolic 120 mm[Hg] [facility] Work Phone: 07-20-2019 08:36-0500 BSA (Body Surface Area) 2.27 m2 [facility] Work Phone: 07-20-2019 08:36-0500 Height 172.72 cm [facility] Work Phone: 07-20-2019 08:36-0500 Pulse (Heart Rate) 87 /min [facility] Work Phone: 07-20-2019 08:36-0500 Pulse Oximetry 97 % [facility] Work Phone: 07-20-2019 08:36-0500 Respiratory Rate 18 /min [facility] Work Phone: 07-06-2019 08:43-0500 BMI (Body Mass Index) 39.7 kg/m2 [facility] Work Phone: 07-06-2019 08:43-0500 Body Temperature 97.3 [degF] [facility] Work Phone: 07-06-2019 08:43-0500 Body weight 118.39 kg [facility] Work Phone: 07-06-2019 08:43-0500 BP Diastolic 82 mm[Hg] [facility] Work Phone: 07-06-2019 08:43-0500 BP Systolic 122 mm[Hg] [facility] Work Phone: 07-06-2019 08:43-0500 BSA (Body Surface Area) 2.29 m2 [facility] Work Phone: 07-06-2019 08:43-0500 Height 172.72 cm [facility] Work Phone: 07-06-2019 08:43-0500 Pulse (Heart Rate) 78 /min [facility] Work Phone: 07-06-2019 08:43-0500 Pulse Oximetry 98 % [facility] Work Phone: 07-06-2019 08:43-0500 Respiratory Rate 18 /min [facility] Work Phone: Encounters Encounter Date Encounter Type Care Provider Facility Start: 02-06-2025 End: 02-06-2025 Bamboo flowsheet Aditya Billy DO Work Phone: [facility] Start: 02-06-2025 End: 02-06-2025 Bamboo flowsheet Aditya Billy DO Work Phone: [facility] Start: 02-06-2025 End: 02-06-2025 Office outpatient visit 15 minutes Aditya Billy DO Work Phone: [facility] Comment on above: Third trimester preg robson ([facility]); 36 weeks gestation of ([facility]) Start: 02-06-2025 End: 02-06-2025 ambulatory ADITYA BILLY Not Available Start: 02-02-2025 End: 02-02-2025 Clinisync Result Encounter [...] [facility] Start: 01-23-2025 End: 01-23-2025 Office outpatient visit 15 minutes Latasha KULKARNI Work Phone: [facility] Comment on above: Third trimester preg robson ([facility]); 34 weeks gestation of ([facility]) Start: 01-23-2025 End: 01-23-2025 ambulatory LATASHA PADGETT Not Available Start: 01-19-2025 End: 01-19-2025 Clinisync Result Encounter Aditya Billy DO Work Phone: [facility] Unsolicited Start: 01-19-2025 End: 01-19-2025 Clinisync Result Encounter Aditya Billy DO Work Phone: [facility]solic[facility] Start: 01-09-2025 End: 01-09-2025 Bamboo flowsheet Aditya Billy DO Work Phone: [facility] Start: 01-09-2025 End: 01-09-2025 Bamboo flowsheet Aditya Billy DO Work Phone: [facility] Start: 01-09-2025 End: 01-09-2025 Office outpatient visit 15 minutes Aditya Billy DO Work Phone: [facility] Comment on above: Third trimester preg robson ([facility]); 32 weeks gestation of ([facility]); Gestational diabetes mellitus (GDM), antepartum, gestational diabetes method of control unspecified ([facility]); Hyperglycemia during ([facility]) Start: 01-09-2025 End: 01-09-2025 ambulatory ADITYA BILLY Not Available Start: 12-27-2024 End: 12-27-2024 Bamboo flowsheet Latasha KULKARNI Work Phone: [facility] Start: 12-27-2024 End: 12-27-2024 Bamboo flowsheet Latasha KULKARNI Work Phone: [facility] Start: 12-27-2024 End: 12-27-2024 ambulatory ADITYA BILLY Not Available Start: 12-27-2024 End: 12-27-2024 Office outpatient visit 15 minutes Latasha KULKARNI Work Phone: [facility] Comment on above: Third trimester preg robson ([facility]) Start: 12-13-2024 End: 12-13-2024 ambulatory ADITYA BILLY Not Available Start: 12-13-2024 End: 12-13-2024 Office outpatient visit 15 minutes Aditya Billy DO Work Phone: [facility] Comment on above: Elevated glucose rikki erance test; History of gestational diabetes; Third trimester ([facility]); 28 weeks gestation of ([facility]); Gestational diabetes mellitus (GDM), antepartum, gestational diabetes method of control unspecified ([facility]) Start: 12-12-2024 End: 12-12-2024 Clinisync Result [...] (Primary D x); 25 weeks gestation of ([facility]); Second trimester ([facility]); History of gestational diabetes; Diabetes mellitus screening [...] Start: 10-17-2024 End: 10-17-2024 ambulatory ADITYA CERVANTES [facility] Start: 10-17-2024 End: 10-17-2024 Subsequent hospital visit by physician Miguel Stewart CNP Work Phone: [facility] Start: 09-26-2024 End: 09-26-2024 Bamboo flowsheet Aditya Billy DO Work Phone: [facility] Start: 09-26-2024 End: 09-28-2024 Bamboo flowsheet Aditya Billy DO Work Phone: [facility] Start: 09-26-2024 End: 09-28-2024 Clinisync Result Encounter Aditya Stricklandzio DO Work Phone: [facility] Unsolicited Start: 09-26-2024 End: 09-26-2024 ambulatory ADITYA GUEVARAO Not Available Start: 09-26-2024 End: 09-26-2024 Patient encounter procedure Aditya Billy DO Work Phone: [facility] Start: 09-26-2024 End: 09-26-2024 Periodic [...] 07-15-2023 End: 07-15-2023 flow sheet Aditya Cervantes Work Phone: [facility] Comment on above: Second trimester pre gnancy Start: 01-01-2023 End: 01-01-2023 Patient encounter procedure Miguel Holley APRN - [employer] Work Phone: [email or web address] Start: 01-01-2023 End: 01-01-2023 Subsequent hospital visit by physician Miguel Holley APRN - [employer] Work Phone: [email or web address] Comment on above: Women's annual routi ne gynecological examination Start: 12-16-2021 End: 12-16-2021 Subsequent hospital visit by physician 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: [email or web address] Start: 12-04-2021 Split Srvc Shona Jenkins rne Other [facility] Office Start: 10-02-2021 End: 10-02-2021 Patient encounter procedure Miguel Holley IOANA Stewart CNP Work Phone: [email or web address] Start: 10-02-2021 End: 10-02-2021 Subsequent hospital visit by physician Miguel Stewart CNP Work Phone: [facility] Comment on above: Women's annual routi ne gynecological examination Start: 10-14-2020 End: 10-15-2020 Emergency department patient visit Donny Hatfield DO Work Phone: [facility] Comment on above: Nausea vomiting and diarrhea (Primary Dx); Generalized abdominal pain Start: 09-23-2020 End: 09-24-2020 ambulatory MIGUEL [facility] Start: 09-23-2020 End: 09-23-2020 Subsequent hospital visit by physician iMguel Stewart CNP Work Phone: [facility] Start: 09-23-2020 End: 09-23-2020 General Jammie Javier RODAS Work Phone: [facility] Work Phone: Start: 09-23-2020 End: 09-23-2020 Adult health examination Miguel Holley DIANELYS Work Phone: [facility] Work Phone: Start: 09-23-2020 End: 09-23-2020 FQHC visit, estab pt Miguel Holley CNP Work Phone: [facility] Work Phone: Start: 04-08-2020 End: 04-08-2020 Emergency department patient visit [facility] ED Comment on above: COVID-19 (Primary Dx ); Fatty liver Start: 03-19-2020 End: 03-19-2020 Telemedicine consultation with patient Miguel Holley Work Phone: [facility] Work Phone: Start: 03-05-2020 End: 03-05-2020 Established patient Miguel Holley Work Phone: [facility] Work Phone: Start: 12-05-2019 End: 12-05-2019 Established patient Poly Franco Work Phone: [facility] Work Phone: Start: 11-06-2019 End: 11-06-2019 Established patient Poly Franco Work Phone: [facility] Work Phone: Start: 10-12-2019 End: 10-12-2019 Patient encounter procedure Paty Goldsmith Work Phone: [facility] Work Phone: Start: 10-12-2019 End: 10-12-2019 Established patient Poly Franco Work Phone: [facility] Work Phone: Start: 09-14-2019 End: 09-14-2019 Established patient Ploy Franco Work Phone: [facility] Work Phone: Start: 09-11-2019 End: 09-11-2019 Telemedicine consultation with patient Poly Franco Work Phone: [facility] Work Phone: Start: 09-05-2019 End: 09-05-2019 Telemedicine consultation with patient Poly Franco Work Phone: [facility] Work Phone: Start: 08-17-2019 End: 09-11-2019 Telemedicine consultation with patient Poly Franco Work Phone: [facility] Work Phone: Start: 08-17-2019 End: 08-17-2019 Established patient Miguel Holley Work Phone: [facility] Work Phone: Start: 07-20-2019 End: 07-20-2019 Established patient Miguel Holley Work Phone: [facility] Work Phone: Start: 07-06-2019 End: 07-06-2019 Subsequent hospital visit by physician [facility] Start: 07-06-2019 End: 07-06-2019 Established patient Anh Virk Work Phone: [facility] Work Phone: Start: 07-06-2019 End: 07-06-2019 New patient Allyson Floyd Work Phone: [facility] Work Phone: Start: 02-02-2019 End: 02-04-2019 Subsequent hospital visit by physician [facility] Ultrasound Room [facility] Ultrasound Comment on above: Encounter for intrau terine device placement Start: 08-21-2018 End: 08-23-2018 Patient encounter procedure [facility] Start: 01-04-2017 End: 01-04-2017 Emergency department patient visit [address] [facility] Facility:[id number] Procedures Date Procedure Procedure Detail Performing Clinician [...] in Cervix by Cyto stain 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: Start: 12-16-2021 Assay of blood/uric acid Dedrick Wood PA-C Work Phone: Start: 12-16-2021 C-reactive protein Robel Wood PA-C Work Phone: Start: 12-04-2021 Nerve conduction heaven dies 9-10 studies Shona Lucio Start: 10-02-2021 Microscopic observat ion [Identifier] in Cervix by Cyto stain 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: Start: 10-15-2020 Urinalysis microscop ic [...] pressure < 80 mm hg Miguel Holley DIANELYS Work Phone: Start: 09-23-2020 Most recent systolic blood pressure <130 mm hg Miguel Dell [employer] Work Phone: Start: 09-23-2020 Pt-focused hlth risk assmt score doc stnd instrm Miguel Holley [employer] Work Phone: Start: 09-23-2020 Antibody hiv-1&hiv-2 single result Miguel Holley [employer] Work Phone: Start: 09-23-2020 Comprehensive metabo lic panel 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: Start: 04-08-2020 Ct thorax w/contrast [...] Phone: Start: 02-02-2019 Us transvaginal Dana Roseanne Akins Work Phone: Start: 02-07-2018 Microscopic observat ion [Identifier] in Cervix by Cyto stain 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: H/O: section S/P jose carlos [...] malign ant neoplasm of cervix Pap smear [facility] Start: 02-28-2025 End: 02-28-2025 Patient encounter procedure 02/28/2025 9:50 AM EDT Office Visit [facility] [address] [place] [phone] Nedra Raymond, COST ACCOUNTING CLERK [address] [place] [phone] [facility] Start: 02-13-2025 End: 02-13-2025 Patient encounter procedure 02/13/2025 9:10 AM EDT Routine [facility] [address] [place] [address] Aditya Cervantes, [address] [place] [address] [facility] Start: 02-07-2025 End: 02-07-2025 Patient encounter procedure 02/07/2025 10:50 AM EDT Routine [facility] [address] [place] [phone] Aditya Cervantes, DO [address] [place] [address] [facility] Start: 02-06-2025 End: 02-06-2026 CULTURE, GROUP B STREP WITH SUSCEPTIBLITY CULTURE, GROUP B STREP WITH SUSCEPTIBLITY Lab Routine Third trimester ([facility]) Expected: 02/06/2025, Expires: 02/06/2026 [facility] Work Phone: Comment on above: Expected: 02/06/2025 , Expires: 02/06/2026 Start: 02-06-2025 End: 02-06-2025 Patient encounter procedure [facility] Comment on above: Arrived Start: 01-29-2025 Influenza vaccination Influenza Vacc ine (#1) [facility] Start: 01-23-2025 End: 01-23-2025 Patient encounter procedure [facility] Comment on above: Arrived Start: 01-10-2025 End: 01-10-2025 Patient encounter procedure 01/10/2025 1:00 PM EDT Routine [facility] [address] [place] [phone] Aditya Cervantes, DO [address] [place] [address] [facility] Start: 01-09-2025 End: 07-12-2025 US biophysical profile w non stress test US biophysical profile w non stress test Imaging Routine Hyperglycemia during ([facility]) Expected: 01/09/2025 (Approximate), Expires: 07/12/2025 [facility] Work Phone: Comment on above: Expected: 01/09/2025 (Approximate), Expires: 07/12/2025 Start: 01-09-2025 End: 01-09-2025 Patient encounter procedure [facility] Comment on above: Arrived Start: 12-29-2024 Influenza vaccination Flu vacc ine (Season Ended) [facility] Start: 12-27-2024 End: 12-27-2024 Professional / ancillary services management [facility] Start: 12-27-2024 End: 12-27-2024 Patient encounter procedure 12/27/2024 10:20 AM EDT Routine [facility] [address] [place] [phone] Latasha Padgett PA [address] [place] [address] [facility] Start: 12-13-2024 End: 12-13-2024 Patient encounter procedure 12/13/2024 1:40 PM EDT Routine [facility] [address] [place] [phone] Aditya Cervantes, DO [address] [place], [place] [id number] [facility] Start: 12-06-2024 End: 12-06-2025 Measurement of glucose 3 hours after glucose challenge for glucose tolerance test Glucose tolerance, 3 hours Lab Routine Elevated glucose tolerance test Expected: 12/06/2024 (Approximate), Expires: 12/06/2025 [facility] Work Phone: Comment on above: Expected: 12/06/2024 (Approximate), Expires: 12/06/2025 Start: 11-22-2024 End: 11-22-2025 12 lead ECG ECG 12 lead unit performed ECG Routine Dizziness Expected: 11/22/2024 (Approximate), Expires: 11/22/2025 [facility] Work Phone: Comment on above: Expected: 11/22/2024 (Approximate), Expires: 11/22/2025 Start: 11-22-2024 End: 11-22-2025 CBC panel - Blood by Automated count CBC Lab Routine Diabetes mellitus screening Expected: 11/22/2024 (Approximate), Expires: 11/22/2025 [facility] Work Phone: Comment on above: Expected: 11/22/2024 (Approximate), Expires: 11/22/2025 Start: 11-22-2024 End: 11-22-2025 Measurement of glucose 1 hour after glucose challenge for glucose tolerance test Glucose tolerance, 1 hour Lab Routine Diabetes mellitus screening Expected: 11/22/2024 (Approximate), Expires: 11/22/2025 [facility] Comment on above: Expected: 11/22/2024 (Approximate), Expires: 11/22/2025 Start: 11-22-2024 End: 11-22-2024 Patient encounter procedure 11/22/2024 1:50 PM EDT Routine [facility] [address] [place] [phone] Aditya Cervantes DO [address] [place] [address] [facility] Start: 10-25-2024 End: 10-25-2024 Patient encounter procedure 10/25/2024 9:30 AM EDT Routine [facility] [address] [place] [phone] Latasha Padgett PA [address] [place] [address] [facility] Start: 10-25-2024 End: 10-25-2024 Professional / ancillary services management 10/25/2024 8:00 AM EDT Ancillary Procedure [facility] [address] [place] [phone] [facility] Start: 10-02-2024 Screening for malign ant neoplasm of cervix Pap smear [facility] Start: 09-26-2024 End: 11-26-2024 Alpha fetoprotein, maternal Alpha fetoprotein, maternal Lab Routine 17 weeks gestation of Expected: 09/26/2024 (Approximate), Expires: 11/26/2024 [facility] Comment on above: Expected: 09/26/2024 (Approximate), Expires: 11/26/2024 Start: 09-26-2024 End: 12-26-2024 US for US OB 14+ weeks anatomy scan Imaging Routine Screening, , for anatomic survey Expected: 09/26/2024, Expires: 12/26/2024 [facility] Comment on above: Expected: 09/26/2024 , Expires: 12/26/2024 Start: 09-26-2024 End: 09-26-2024 Patient encounter procedure 09/26/2024 9:50 AM EDT Routine [facility] [address] [facility] [place] [phone] Aditya Cervantes, [address] [place] [address] [facility] Start: 08-29-2024 End: 08-29-2024 Patient encounter procedure 08/29/2024 9:20 AM EDT Routine [facility] [address] [place] [phone] Aditya Cervantes DO [address] [facility] [place] [address] Arrived [facility] Comment on above: Arrived Start: 08-04-2024 End: 08-04-2024 ambulatory 08/04/2024 9:00 AM EST Initial [facility] [address] [facility] [place] [id number] [facility] Start: 08-04-2024 End: 08-04-2024 Professional / ancillary services management 08/04/2024 8:30 AM EST Ancillary Procedure [facility] [address] [facility] [place] [place] [phone] [facility] Start: 07-12-2024 End: 07-12-2024 Patient encounter procedure 07/12/2024 8:30 AM EST Office Visit [facility] [address] [facility] [place] [place] [phone] Latasha Padgett, PA [address] [facility] [place] [address] [facility] Start: 05-17-2024 End: 05-17-2024 Patient encounter procedure [facility] Comment on above: Arrived Start: 05-10-2024 End: 05-10-2024 Patient encounter procedure 05/10/2024 8:40 AM EST Office Visit [facility] [address] [facility] [place] [place] [phone] Latasha Padgett, PA [address] [facility] [place] [address] [facility] Start: 01-30-2024 COVID-19 Vaccine ( season) COVID-19 Vaccine ( season) [facility] Start: 01-30-2024 Influenza vaccination Influenza Vacc ine (#1) [facility] Start: 08-19-2023 End: 08-19-2023 Patient encounter procedure 08/19/2023 11:00 AM EDT Routine [facility] [address] [facility] [place] [address] Latasha Padgett PA [address] [facility] [address] [place], [place] [id number] [facility] Start: 08-19-2023 End: 08-19-2023 Professional / ancillary services management 08/19/2023 10:00 AM EDT Ancillary Procedure [facility] [address] [facility] [place] [phone] [facility] Start: 01-20-2023 End: 01-20-2023 Admission to same day surgery center 01/20/2023 Surgery IP Unit Mychal Nichols MD [address] [facility] [address] [place] [address] HYSTEROSCOPY - IUD REMOVAL [facility] Comment on above: HYSTEROSCOPY - IUD R EMOVAL Start: 01-20-2023 End: 01-20-2023 Hysteroscopy removal impacted foreign body HYSTEROSCOPY Intrauterine contraceptive device threads lost, initial encounter 01/20/2023 11:10 AM EDT [facility] Start: 01-20-2023 Subsequent hospital visit by physician 01/20/2023 Hospital Encounter IP Unit Mychal Nichols MD [address] [facility] [address] [place] [address] [facility] Start: 12-29-2022 Influenza vaccination Flu vaccine (# 1) [facility] Start: 04-27-2022 End: 04-27-2022 Patient encounter procedure [facility] Start: 01-29-2022 Influenza vaccination [facility] Start: 02-07-2021 Cervical cancer screen Cervical canc er screen [facility] [place], [place] Start: 02-07-2021 Screening for malign ant neoplasm of cervix [facility] Start: 01-29-2021 Influenza vaccination Flu vacc ine (Season Ended) [facility] Work Phone: Start: 09-30-2020 CBC W Auto Different ial panel - Blood [facility] Start: 09-30-2020 Lipid 1996 panel - Serum or Plasma LIPID PROFILE [facility] Start: 09-23-2020 Psychiatry Health Par [facility] Work Phone: Comment on above: Note: Please make a referral to: Start: 03-26-2020 SARS-CoV-2, [facility] Work Phone: Start: 03-19-2020 COVID Drive up Testing [facility] Work Phone: Start: 02-06-2020 Medical Establ ished Patient [facility] Work Phone: Start: 01-30-2020 Influenza vaccination Flu vaccine (# 1) [place], [place] Start: 11-09-2019 Medical Establ ished Patient [facility] Work Phone: Start: 10-11-2019 Medical Establ ished Patient [facility] Work Phone: Start: 09-14-2019 Medical Establ ished Patient [facility] Work Phone: Start: 08-17-2019 Medical Establ ished Patient [facility] Work Phone: Start: 07-20-2019 Medical Establ ished Patient [facility] Work Phone: Start: 07-13-2019 Lipid 1996 panel [facility] Work Phone: Start: 02-14-2019 End: 02-14-2019 Office Visit 02/14/2019 Office Visit Obstetrics and Gynecology Pilar Marie, 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 - CNM [address], [place] [id number] [facility] MANAGER MOBILITY Start: 02-07-2019 Chlamydia screen Chlamydia screen [place], [place] Start: 02-07-2019 Screening for Chlamy valentino trachomatis Chlamydia screen [facility] Start: 01-29-2019 Influenza vaccination Flu vaccine (# 1) [place], [place] Start: 10-29-2017 DTaP/Tdap/Td vaccine (2 - Td or Tdap) DTaP/Tdap/Td vaccine (2 - Td or Tdap) [facility] Start: 10-29-2017 DTaP/Tdap/Td vaccine (2 - Td) DTaP/Tdap/Td vaccine (2 - Td) [place], [place] Start: 2015 Hepatitis B vaccine (1 of 3 - 19+ 3-dose series) Hepatitis B vaccine (1 of 3 - 19+ 3-dose series) [facility] Start: 2014 Hepatitis C screening Hepatitis C sc [facility] Start: 2012 COVID-19 Vaccine (1) COVID-19 Vaccin e (1) [facility] Work Phone: Start: 2011 HIV screen HIV screen [place], [place] Start: 2011 HIV screening HIV screen [facility] Start: 2011 HPV vaccine (1 - Fem shiela 3-dose series) HPV vaccine (1 - Female 3-dose series) [place], [place] Start: 2009 Varicella Vaccine (1 of 2 - 13+ 2-dose series) Varicella Vaccine (1 of 2 - 13+ 2-dose series) [facility] Start: 2008 COVID-19 Vaccine (1) COVID-19 Vaccin e (1) [facility] Phone: Start: 2008 Depression Screen Depression Screen [facility] Start: 2007 HPV vaccine (1 - 2-d ose series) HPV vaccine (1 - 2-dose series) [facility] Start: 2007 HPV vaccine (1 - Fem shiela 2-dose series) HPV vaccine (1 - Female 2-dose series) [facility] [employer] Phone: Start: 2001 COVID-19 Vaccine (1) COVID-19 Vaccin e (1) [facility] Start: 1997 Varicella vaccine (1 of 2 - 2-dose childhood series) Varicella vaccine (1 of 2 - 2-dose childhood series) [facility] Start: 1996 COVID-19 Vaccine (#1) COVID-19 Vacci ne (#1) [employer] Start: 1996 Hepatitis C screening Hepatitis C sc reen [employer] Phone: End: 10-17-2024 Alpha Fetoprotein, Maternal Crunched Phone: Comment on above: Once for 1 Occurrenc es starting 10/17/2024 until 10/17/2024 End: 12-16-2021 GLENNY Screen with Reflex [employer] Phone: Comment on above: Once for 1 Occurrenc es starting 12/16/2021 until 12/16/2021 CHLAMYDIA TRACHOMATI S (GENITO/STI) CHLAMYDIA TRACHOMATIS (GENITO/STI) Lab Routine STD exposure Vaginal discharge Ordered: 09/26/2024 [facility] Comment on above: Ordered: 09/26/2024 Cytology Cervical or vaginal smear or scraping study Pap Smear Pathology and Cytology Routine Well woman exam with routine gynecological exam Ordered: 09/26/2024 [facility] Comment on above: Ordered: 09/26/2024 End: 10-02-2021 Cytopathology procedure, preparation of smear, genital source PAP SMEAR Lab Routine Women's annual routine gynecological examination 1 Occurrences starting 10/02/2021 until 10/02/2021 [employer] Phone: Comment on above: 1 Occurrences starti ng 10/02/2021 until 10/02/2021 End: 01-01-2023 Cytopathology procedure, preparation of smear, genital source PAP SMEAR Lab Routine Women's annual routine gynecological examination 1 Occurrences starting 01/01/2023 until 01/01/2023 [employer] Phone: Comment on above: 1 Occurrences starti ng 01/01/2023 until 01/01/2023 End: 12-16-2021 HLA-B27 Antigen [employer] Phone: Comment on above: Once for 1 Occurrenc es starting 12/16/2021 until 12/16/2021 End: 07-06-2019 Insulin, free Insulin, free Lab Routine Once for 1 Occurrences starting 07/06/2019 until 07/06/2019 [employer] Work Phone: Comment on above: Once for 1 Occurrenc es starting 07/06/2019 until 07/06/2019 Insulin, free Insulin, free La b Routine 07/06/2019 9:31 AM EST [employer] Phone: End: 12-16-2021 Lyme Ab [facility] [employer] Work Phone: Comment on above: Once for 1 Occurrenc es starting 12/16/2021 until 12/16/2021 Neisseria gonorrhoea e DNA [Presence] in Unspecified specimen by [facility] with probe detection Neisseria gonorrhea DNA probe, direct Lab Routine STD exposure Vaginal discharge Ordered: 09/26/2024 [facility] [employer] Comment on above: Ordered: 09/26/2024 SURESWAB(R) ADVANCED VAGINITIS PLUS, TMA SURESWAB(R) ADVANCED VAGINITIS PLUS, TMA Pathology and Cytology Routine STD exposure Vaginal discharge Ordered: 09/26/2024 [employer] Work Phone: Comment on above: Ordered: 09/26/2024 End: 02-13-2025 US for US OB follow up transabdominal approach Imaging Routine Elevated glucose tolerance test Gestational diabetes mellitus (GDM), antepartum, gestational diabetes method of control unspecified ([facility]) q4 weeks for 4 Occurrences starting 12/13/2024 until 02/13/2025 [facility] Comment on above: q4 weeks for 4 Occur rences starting 12/13/2024 until 02/13/2025 Immunizations Immunization Date Immunization Notes Care Provider Em de la cruz 10-30-2007 tetanus toxoid, redu katelyn diphtheria toxoid, and acellular pertussis vaccine, adsorbed [facility] [employer] Payers Date Payer Category Payer Medicaid [id number] 2023 Medicaid [id number] 2023 Unknown [facility] [id number] 2023-Present [address] [address] [place] [address] [id number] 2022 Unknown [employer] [address] [id number] 2022-Present [address] [place] [address] [id number] 2018 Unknown [id number] [id number] 99.5.10.6.3 2016 Unknown [employer] [address] xxxxxxxxxxxx 2016-Present [phone] [address] [place] [address] xxxxxxxxxxxx [id number] .[id number] 1996 Unknown [id number] 2.16.840.1.752521.3.579.2.175 1996 Unknown [id number] 2.16.840.1.772773.3.579.2.173 1996 Unknown [id number] 2.16.840.1.645189.3.579.2.125 9 1996 Unknown [id number] 2.16.840.1.861002.3.579.2.125 9 1996 Unknown [id number] 2.16.840.1.756481.3.579.2.125 9 1996 Unknown [id number] 2.16.840.1.444127.3.579.2.125 9 1996 Unknown [id number] 2.16.840.1.505534.3.579.2.125 9 1996 Unknown [id number] 2.16.840.1.771285.3.579.2.125 9 1996 Unknown [id number] 2.16.840.1.680286.3.579.2.125 9 1996 Unknown [id number] 2.16.840.1.903287.3.579.2.125 9 1996 Unknown [id number] 2.16.840.1.292579.3.579.2.125 9 1996 Unknown [id number] 2.16.840.1.755618.3.579.2.125 9 1996 Unknown [id number] 2.16.840.1.535720.3.579.2.125 9 1996 Unknown [id number] 2.16.840.1.686631.3.579.2.125 9 1996 Unknown [id number] 2.16.840.1.998563.3.579.2.125 9 1996 Unknown [id number] 2.16.840.1.179359.3.579.2.125 9 1996 Unknown [id number] 2.16.840.1.196176.3.579.2.125 9 1996 Unknown [id number] 2.16.840.1.487360.3.579.2.125 9 1996 Unknown [id number] 2.16.840.1.016116.3.579.2.125 9 Unknown [id number] [id number] Social History Date Type Detail Facility Assertion Health [facility] Work Phone: Assertion Emotional stress (finding) [facility] Work Phone: Tobacco smoking status Unknown if ever smoked [facility] Assertion Sexually active (finding) Health [facility] Work Phone: Assertion Gender identity finding (finding) [facility] Work Phone: Assertion Finding of sexua l orientation (finding) [facility] Work Phone: Start: 02-07-2018 End: 01-06-2023 Tobacco smoking status NHIS Never smoker Maintenance Assistant Start: 02-07-2018 End: 01-20-2023 Alcohol intake Current drinker of alcohol (finding) [employer] Work Phone: Start: 12-12-2015 Alcohol Comment occassionally Maintenance Assistant Start: 1996 Sex Assigned At Not on file Maintenance Assistant Start: 04-08-2020 End: 01-06-2023 Tobacco use and exposure Never used Maintenance Assistant Exposure to SARS-CoV-2 (event) Not sure Maintenance Assistant Start: 02-07-2018 End: 01-20-2023 Alcohol intake Yes Maintenance Assistant Assertion Family illness (situation) [facility] Work Phone: Assertion Single person (finding) [facility] Work Phone: Start: *Tobacco [facility]ibe[facility] [employer] Start: 04-15-2023 [facility] Start: 01-20-2023 History of Social function [facility] Start: 10-12-2013 Sex Female (finding) [facility] [employer] NEGATED: Highlighted row Assertion Exposure to pollution (event) [facility] Work Phone: NEGATED: Highlighted row Assertion Tobacco user (finding) [facility] Work Phone: NEGATED: Highlighted row Assertion Current drinker of alcohol (finding) [facility] Work Phone: NEGATED: Highlighted row Assertion Finding relating to drug misuse behavior (finding) [facility] Work Phone: Mental Status Date Assessment Result Facility Cognitive function Cognitive fun ctioning was normal Cognitive function finding (finding) [facility] Work Phone: Clinical Notes 11-06-2019 to 02-06-2025 JOSE Arana 02/06/2025 10:10 AM CAYLA Bartlett - 01/23/2025 [...] Excessive growth affecting management of mother, antepartum ([facility]) 12/06/2023 Third trimester ([facility]) 12/06/2023 No Additional Past Medical History [...] nursing note reviewed. Exam conducted with a municipal maintenance worker present. Vitals: Estimated body mass index is 43.38 kg/m as calculated from the following: Height as of 24: 5' 7 . Weight as of this encounter: 277 lb. BP: 126/78 No LMP recorded. Patient is . ASSESSMENT & PLAN ICD-10-CM 1. Third trimester ([facility]) Z34.93 POCT urinalysis dipstick manually resulted CULTURE, GROUP B STREP WITH SUSCEPTIBLITY CULTURE, GROUP B STREP WITH SUSCEPTIBLITY 2. 36 weeks gestation of ([facility]) Z3A.36 Patient is doing well but [...] Aditya Cervantes DO documented in this encounter [facility] 01-23-2025 History of Presen t illness Narrative [...] Excessive growth affecting management of mother, antepartum ([facility]) 12/06/2023 Third trimester ([facility]) 12/06/2023 No Additional Past Medical History [...] ASSESSMENT & PLAN ICD-10-CM 1. Third trimester ([facility]) Z34.93 CANCELED: POCT urinalysis dipstick manually resulted 2. 34 weeks gestation of ([facility]) Z3A.34 CANCELED: POCT urinalysis dipstick manually [...] of: CAYLA Kwok documented in this encounter [facility] 01-09-2025 History of Presen [...] Excessive growth affecting management of mother, antepartum ([facility]) 12/06/2023 Third trimester ([facility]) 12/06/2023 No Additional Past Medical History [...] nursing note reviewed. Exam conducted with a municipal maintenance worker present. Vitals: Estimated body mass index is 42.88 kg/m as calculated from the following: Height as of 01/10/24: 5' 7 . Weight as of 12/27/24: 273 lb 12.8 oz. BP: No LMP recorded. Patient is . Assessment/Plan Encounter Diagnosis: ICD-10-CM 1. Third trimester ([facility]) Z34.93 POCT urinalysis dipstick manually resulted 2. 32 weeks gestation of ([facility]) Z3A.32 3. Gestational diabetes mellitus (GDM), antepartum, gestational diabetes method of control unspecified ([facility]) O24.419 4. Hyperglycemia during ([facility]) O99.810 US biophysical profile w non [...] Aditya Cervantes DO documented in this encounter [facility] 12-27-2024 History of Presen [...] Excessive growth affecting management of mother, antepartum ([facility]) 12/06/2023 Third trimester ([facility]) 12/06/2023 No Additional Past Medical History [...] nursing note reviewed. Exam conducted with a municipal maintenance worker present. Vitals: Estimated body mass index is 42.88 kg/m as calculated from the following: Height as of 24: 5' 7 . Weight as of this encounter: 273 lb 12.8 oz. BP: 122/74 No LMP recorded. Patient is . ASSESSMENT & PLAN ICD-10-CM 1. Third trimester ([facility]) Z34.93 POCT urinalysis dipstick manually resulted Return [...] routine OB appointment. documented in this encounter [facility] 12-13-2024 History of Presen [...] Excessive growth affecting management of mother, antepartum ([facility]) 12/06/2023 Third trimester ([facility]) 12/06/2023 No Additional Past Medical History [...] of gestational diabetes Z86.32 3. Third trimester ([facility]) Z34.93 POCT urinalysis dipstick manually resulted 4. 28 weeks gestation of ([facility]) Z3A.28 POCT urinalysis dipstick manually resulted [...] Aditya Cervantes DO documented in this encounter [facility] 11-22-2024 History of Presen [...] Excessive growth affecting management of mother, antepartum ([facility]) 12/06/2023 Third trimester ([facility]) 12/06/2023 No Additional Past Medical History [...] PLAN ICD-10-CM 1. 25 weeks gestation of ([facility]) Z3A.25 POCT urinalysis dipstick manually resulted 2. Second trimester ([facility]) Z34.92 POCT urinalysis dipstick manually resulted [...] Aditya Cervantes DO documented in this encounter [facility] 10-25-2024 History of Presen [...] of: CAYLA Kwok documented in this encounter [facility] 09-26-2024 History of Presen [...] nursing note reviewed. Exam conducted with a municipal maintenance worker present. Vitals: Estimated body mass index is [...] Aditya Cervantes DO documented in this encounter [facility] 08-29-2024 History of Presen [...] nursing note reviewed. Exam conducted with a municipal maintenance worker present. Vitals: Estimated body mass index is [...] or undercooked meat, and stay away from [facility]. Patient has been consulted regarding any further do's and don'ts of . Patient voiced understanding and all questions and concerns were answered. Orders Placed This Encounter Procedures POCT urinalysis dipstick manually resulted Follow Up: Patient is to return in 4 weeks for routine OB appointment. Documented by Lindsey Dong LPN on behalf of: Aditya Cervantes DO documented in this encounter [facility] 06-14-2024 History of Presen [...] of: CAYLA Kwok documented in this encounter [facility] 05-17-2024 History of Presen [...] of CAYLA Kwok documented in this encounter [facility] 04-18-2024 History of Presen [...] of: CAYLA Kwok documented in this encounter [facility] 02-21-2024 History of Presen t illness Narrative [...] of: CAYLA Kwok documented in this encounter [facility] 07-15-2023 History of Presen [...] Aditya Cervantes DO documented in this encounter [facility] 09-23-2020 Evaluation note Includes: Assessments for all patient encounters Findings Anxiety disorder NOS BH Telebehavioral H ealth with Jammie RODAS 09/23/2020 Assessment of visit for: screening for human immunodeficiency virus Medical Established Patient with Miguel Holley CNP 09/23/2020 Diabetes Risk Test Score was three score 09/23/2020 Medical Established Patient with Miguel Holley [employer] 09/23/2020 Morbid obesity Medical Established Patient with Miguel Holley [employer] 09/23/2020 Routine adult history and physical (18-64 yrs) without abnormal findings Medical Established Patient with Miguel Holley [employer] 09/23/2020 Z68.41 - Body mass index [BMI]40.0-44.9, adult Medical Established Patient with Miguel Holley [employer] 09/23/2020 Cough Telemedicine Establi sted Patient with Miguel Holley [employer] 03/19/2020 Exposure to a viral disease Telemedicine Establisted Patient with Miguel Holley [employer] 03/19/2020 Obesity due to excess calories Telemedic ine Establisted Patient with Miguel Holley [employer] 03/19/2020 Z68.37 - Body mass index [BM I] 37.0-37.9, adult Telemedicine Establisted Patient with Miguel Holley [employer] 03/19/2020 Obesity due to excess calories Medical E stablished Patient with Miguel Holley [employer] 03/05/2020 Z68.37 - Body mass index [BM I] 37.0-37.9, adult Medical Established Patient with Miguel Holley [employer] 03/05/2020 Obesity due to excess calories Medical E stablished Patient with Poly Wagonerle [employer] 12/05/2019 R21 - Rash and other nonspecific skin eruption Medical Established Patient with Poly Salvador [employer] 12/05/2019 Z68.35 - Body mass index (BM I) 35.0-35.9, adult Medical Established Patient with Poly Wagonerle [employer] 12/05/2019 Obesity due to excess calories Medical E stablished Patient with Poly Salvador [employer] 11/06/2019 Z68.36 - Body mass index (BM I) 36.0-36.9, adult Medical Established Patient with Poly Salvador [employer] 11/06/2019 Obesity due to excess calories Medical E stablished Patient with Poly Salvador [employer] 10/12/2019 Z68.38 - Body mass index (BM I) 38.0-38.9, adult Medical Established Patient with Poly Salvador [employer] 10/12/2019 L25.5 - Unspecified contact dermatitis due to plants, except food Medical Established Patient with Poly Salvador [employer] 09/14/2019 Obesity due to excess calories Medical E stablished Patient with Poly Salvador [employer] 09/14/2019 Z68.37 - Body mass index (BM I) 37.0-37.9, adult Medical Established Patient with Poly Franco [employer] 09/14/2019 L25.5 - Unspecified contact dermatitis due to plants, except food Telemedicine with Poly Franco [employer] 09/11/2019 Obesity due to excess calories Telemedic ine with Poly Franco [employer] 09/11/2019 Z68.37 - Body mass index (BM I) 37.0-37.9, adult Telemedicine with Poly Franco [employer] 09/11/2019 Dermatitis due to contact wi th poison spencer Telemedicine with Poly Franco [employer] 09/05/2019 Obesity due to excess calories Telemedic ine with Poly Franco [employer] 09/05/2019 Z68.37 - Body mass index (BM I) 37.0-37.9, adult Telemedicine with Poly Franco [employer] 09/05/2019 Obesity due to excess calories Medical E stablished Patient with Miguel Holley [employer] 08/17/2019 Z68.37 - Body mass index (BM I) 37.0-37.9, adult Medical Established Patient with Miguel Holley [employer] 08/17/2019 Generalized anxiety disorder BH Establis hed Patient with Anh VIDAL 07/06/2019 Anxiety disorder NOS Medical New Patient with Allyson Floyd [employer] 07/06/2019 Depression Medical New Patient with Allyson Floyd [employer] 07/06/2019 Diabetes Risk Test Score was one score Medical New Patient with Allyson Everett [employer] 07/06/2019 Idiopathic insomnia Medical New Patient with Allyson Floyd [employer] 07/06/2019 Obesity due to excess calories Medical N ew Patient with Allyson Everett [employer] 07/06/2019 Z68.39 - Body mass index (BM I) 39.0-39.9 adult Medical New Patient with Allyson Floyd [employer] 07/06/2019 [facility] Work Phone: [phone]) 363-729206-08-2020 History general Narrative - Reported Includes: Medical History in patient's chart Description Last Updated Not currently nursing 11/06/2019 Not 11/06/2019 No reported medical history or no signif icant history 07/06/2019 [facility] Work Phone: Evaluation note Includes: Assessments for all patient encounters Findings Encounter Date Assessment of visit for: scr eening for human immunodeficiency virus Medical Established Patient with Miguel Holley [employer] PATTERNMAKER 09/23/2020 Diabetes Risk Test Score was three score 09/23/2020 Medical Established Patient with Miguel Holley [employer] 09/23/2020 Morbid obesity Medical Established Patient with Miguel Holley CNP 09/23/2020 Routine adult history and ph ysical (18-64 yrs) without abnormal findings Medical Established Patient with Miguel Holley CNP 09/23/2020 Z68.41 - Body mass index [BMI]40.0-44.9, adult Medical Established Patient with Miguel Holley CNP 09/23/2020 Cough Telemedicine Establi sted Patient with Miguel Holley [employer] 03/19/2020 Exposure to a viral disease Telemedicine Establisted Patient with Miguel Holley [employer] 03/19/2020 Obesity due to excess calories Telemedic ine Establisted Patient with Miguel Holley [employer] 03/19/2020 Z68.37 - Body mass index [BM I] 37.0-37.9, adult Telemedicine Establisted Patient with Miguel Holley [employer] 03/19/2020 Obesity due to excess calories Medical E stablished Patient with Miguel Holley [employer] 03/05/2020 Z68.37 - Body mass index [BM I] 37.0-37.9, adult Medical Established Patient with Miguel Holley [employer] 03/05/2020 Obesity due to excess calories Medical E stablished Patient with Polykamryn Wagonerle [employer] 12/05/2019 R21 - Rash and other nonspec ific skin eruption Medical Established Patient with Poly Salvador [employer] 12/05/2019 Z68.35 - Body mass index (BM I) 35.0-35.9, adult Medical Established Patient with Poly Salvador [employer] 12/05/2019 Obesity due to excess calories Medical E stablished Patient with Poly Salvador [employer] 11/06/2019 Z68.36 - Body mass index (BM I) 36.0-36.9, adult Medical Established Patient with Poly Salvador [employer] 11/06/2019 Obesity due to excess calories Medical E stablished Patient with Poly Salvador [employer] 10/12/2019 Z68.38 - Body mass index (BM I) 38.0-38.9, adult Medical Established Patient with Poly Salvador [employer] 10/12/2019 L25.5 - Unspecified contact dermatitis due to plants, except food Medical Established Patient with Poly Franco [employer] 09/14/2019 Obesity due to excess calories Medical E stablished Patient with Poly Franco [employer] 09/14/2019 Z68.37 - Body mass index (BM I) 37.0-37.9, adult Medical Established Patient with Poly Fracno [employer] 09/14/2019 L25.5 - Unspecified contact dermatitis due to plants, except food Telemedicine with Poly Franco [employer] 09/11/2019 Obesity due to excess calories Telemedicine with Poly Franco [employer] 09/11/2019 Z68.37 - Body mass index (BM I) 37.0-37.9, adult Telemedicine with Poly Franco [employer] 09/11/2019 Dermatitis due to contact wi th poison spencer Telemedicine with Poly Franco [employer] 09/05/2019 Obesity due to excess calories Telemedicine with Poly Franco [employer] 09/05/2019 Z68.37 - Body mass index (BM I) 37.0-37.9, adult Telemedicine with Poly Franco [employer] 09/05/2019 Obesity due to excess calories Medical E stablished Patient with Miguel Holley [employer] 08/17/2019 Z68.37 - Body mass index (BM I) 37.0-37.9, adult Medical Established Patient with Miguel Holley [employer] 08/17/2019 Generalized anxiety disorder BH Establis hed Patient with Anh VIDAL 07/06/2019 Anxiety disorder NOS Medical New Patient with Allyson Muse [employer] 07/06/2019 Depression Medical New Patient with Allyson Muse [employer] PATTERNMAKER 07/06/2019 Diabetes Risk Test Score was one score M edical New Patient with Allyson Muse [employer] 07/06/2019 Idiopathic insomnia Medical New Patient with Allyson Muse [employer] PATTERN[employer]KER 07/06/2019 Obesity due to excess calories Medical N ew Patient with Allyson Muse [employer]TERN[employer] 07/06/2019 Z68.39 - Body mass index (BM I) 39.0-39.9 adult Medical New Patient with Allyson Everett [employer] PATTERNMAKER 07/06/2019 [facility] Work Phone: Evaluation note* Diagnosis Nausea vomiting and diarrhea- Primary Nausea with vomiting Generalized abdominal pain Abdominal pain, generalized documented in this encounter [facility] Work Phone: evaluation note* Diagnosis Women's annual routine gynecological examination documented in this encounter Eved Phone: evaluation note* Diagnosis Women's annual routine gynecological examination Intrauterine contraceptive device threads lost, initial encounter documented in this [facility] Diagnosis Second trimester state, incidental documented in this encounter [facility]* Diagnosis S/P section Other postprocedural status Postop check Follow-up examination, following unspecified surgery Encounter for weight management documented in this encounter [facility]* Diagnosis Weight gain Other symptoms concerning nutrition, metabolism, and development Encounter for weight management documented in this encounter [facility]* Diagnosis 6 weeks follow-up S/P section Other postprocedural status documented in this encounter [facility]* Diagnosis Encounter for weight management documented in this encounter [facility]* Diagnosis First trimester state, incidental 13 weeks gestation of History of gestational diabetes Personal history of other genital system and obstetric disorders documented in this encounter [facility]* Diagnosis Screening, , for anatomic survey Encounter for anatomic survey Well woman exam with routine gynecological exam Routine gynecological examination STD exposure Vaginal discharge Leukorrhea, not specified as infective Second trimester state, incidental 17 weeks gestation of documented in this encounter [facility]* Diagnosis Second trimester state, incidental [...] type No History of Present Illness [facility] Work Phone: Hospital Discharge instructions* Attachments The following attachments cannot be sent through Care Everywhere. * Abdominal Pain (Swiss) * Nausea and Vomiting (Swiss) * [facility] (Swiss) [facility]: Instructions Instructions not supported for this document type No Instructions [facility] Work Phone: Patient problem outcome Narrative Includes: Evaluations & Outcomes for active Goals No Outcomes [facility] Work Phone: Reason for referral (narrative)No Reason for Referral [facility] Work Phone: Review of systems Narrative - Reported Review of Systems not supported for this document type No [facility] Summary Purpose Family History No Family History Records Found Description Last Updated Maternal history of rheumatoid arthritis 07/06/2019 Maternal history of rheumatologic disord er Fibromyalgia 07/06/2019 Maternal history of systemic lupus eryth ematosus 07/06/2019 Paternal history of type 1 diabetes marino itus 07/06/2019 Advance Directives No Advanced Directives Records FoundDocuments on File Type Date Recorded Patient Element Setter Expl anation Advance Directives and Living Will Power of Band Ripsaw Operator Documents on File Type Date Recorded Patient Element Setter Expl anation ACP-Advance Directive ACP-Power of Band Ripsaw Operator Documents on File Type Date Recorded Patient Element Setter Expl anation Advance Directives and Living Will Power of Band Ripsaw Operator Date Activated Date Inactivated Comments 01/20/2023 7:21 [...] Depression Medical New Patient with Allyson Floyd EN[employer]ELOPE PATTERNMAKER 07/06/2019 Diabetes Risk Test Score was one score Medical New Patient with Allyson Floyd ENVELOPE PATTERNMAKER 07/06/2019 Idiopathic insomnia Medical New Patient with Allyson Floyd ENVELOPE PATTERNMAKER 07/06/2019 Obesity due to excess calories Medical N ew Patient with Allyson Floyd [employer]ELOPE PATTERNMAKER 07/06/2019 Z68.39 - Body mass index (BM I) 39.0-39.9 adult Medical New Patient with Allyson Floyd [employer]ELOPE PATTERNMAKER 07/06/2019 Findings Encounter Date Obesity due to excess calories Medical E stablished Patient with Poly Franco [employer] 10/12/2019 Z68.38 - Body mass index (BM I) 38.0-38.9, adult Medical Established Patient with Poly Franco [employer] 10/12/2019 L25.5 - Unspecified contact dermatitis due to plants, except food Medical Established Patient with Poly Franco [employer] 09/14/2019 Obesity due to excess calories Medical E stablished Patient with Poly Wagonerle [employer] 09/14/2019 Z68.37 - Body mass index (BM I) 37.0-37.9, adult Medical Established Patient with Poly Franco [employer] 09/14/2019 L25.5 - Unspecified contact dermatitis due to plants, except food Telemedicine with Poly Wagonerle [employer] 09/11/2019 [facility] due to excess calories [facility] Z68.37 - Body mass index (BM I) 37.0-37.9, adult Telemedicine with Poly [facility] 09/11/2019 Dermatitis due to contact wi th poison spencer Telemedicine with Poly Franco [employer] 09/05/2019 Obesity due to excess calories Telemedicine with Poly Franco [employer]EL[employer] PATTERNMAKER 09/05/2019 Z68.37 - Body mass index (BM I) 37.0-37.9, adult Telemedicine with Poly Franco [employer] PATTERNMAKER 09/05/2019 Obesity due to excess calories Medical E stablished Patient with Miguel Holley [employer]OPE PATTERNMAKER 08/17/2019 Z68.37 - Body mass index (BM I) 37.0-37.9, adult Medical Established Patient with Miguel Holley [employer]EL[employer] PATTERNMAKER 08/17/2019 Generalized anxiety disorder BH Establis hed Patient with Anh Virk TECHNICAL SERVICES CONSULTANT-S 07/06/2019 Anxiety disorder NOS Medical New Patient with Allyson Muse [employer]ELOPE PATTERNMAKER 07/06/2019 Depression Medical New Patient with Allyson Everett ENVELOPE PATTERNMAKER 07/06/2019 Diabetes Risk Test Score was one score Medical New Patient with Allyson Everett EN[employer]ELOPE PATTERNMAKER 07/06/2019 Idiopathic insomnia Medical New Patient with Allyson Everett ENVELOPE PATTERNMAKER 07/06/2019 Obesity due to excess calories Medical N ew Patient with Allyson Muse ENVELOPE PATTERNMAKER 07/06/2019 Z68.39 - Body mass index (BM I) 39.0-39.9 adult Medical New Patient with Allyson Muse [employer]ELOPE PATTERNMAKER 07/06/2019 Findings Encounter Date Obesity due to excess calories Medical E stablished Patient with Miguel Holley [employer]EL[employer] PATTERNMAKER 08/17/2019 Z68.37 - Body mass index (BM I) 37.0-37.9, adult Medical Established Patient with Miguelcristal Holley ENVELOPE PATTERNMAKER 08/17/2019 Generalized anxiety disorder BH Establis hed Patient with Anh Virk TECHNICAL SERVICES CONSULTANT-S 07/06/2019 Anxiety disorder NOS Medical New Patient with Allyson Everett EN[employer]ELOPE PATTERNMAKER 07/06/2019 Depression Medical New Patient with Allyson Everett ENVELOPE PATTERNMAKER 07/06/2019 Diabetes Risk Test Score was one score Medical New Patient with Allyson Muse [employer]ELOPE PATTERNMAKER 07/06/2019 Idiopathic insomnia Medical New Patient with Allyson Everett ENVELOPE PATTERNMAKER 07/06/2019 Obesity due to excess calories Medical N ew Patient with Allyson Muse [employer]ELOPE PATTERNMAKER 07/06/2019 Z68.39 - Body mass index (BM I) 39.0-39.9 adult Medical New Patient with Allyson Muse [employer]EL[employer] PATTERNMAKER 07/06/2019 Findings Encounter Date Dermatitis due to contact wi th poison spencer Telemedicine with Poly Franco [employer]EL[employer] PATTERNMAKER 09/05/2019 Obesity due to excess calories Telemedicine with Poly Franco [employer] PATTERNMAKER 09/05/2019 Z68.37 - Body mass index (BM I) 37.0-37.9, adult Telemedicine with Poly Salvador [employer] 09/05/2019 Obesity due to excess calories Medical E stablished Patient with Miguelcristal Holley [employer] PATTERNMAKER 08/17/2019 Z68.37 - Body mass index (BM I) 37.0-37.9, adult Medical Established Patient with Miguelcristal Holley [employer]ELOPE PATTERNMAKER 08/17/2019 Generalized anxiety disorder BH Establis hed Patient with Anh RODAS-S 07/06/2019 Anxiety disorder NOS Medical New Patient with Allyson Everett [employer]ELOPE PATTERNMAKER 07/06/2019 Depression Medical New Patient with Allyson Everett [employer]ELOPE PATTERNMAKER 07/06/2019 Diabetes Risk Test Score was one score Medical New Patient with Allyson Muse [employer]VELOPE PATTERNMAKER 07/06/2019 Idiopathic insomnia Medical New Patient with Lalyson Everett ENVELOPE PATTERNMAKER 07/06/2019 Obesity due to excess calories Medical N ew Patient with Allyson Everett ENVELOPE PATTERNMAKER 07/06/2019 Z68.39 - Body mass index (BM I) 39.0-39.9 adult Medical New Patient with Allyson Muse ENVELOPE PATTERNMAKER 07/06/2019 Findings Encounter Date L25.5 - Unspecified contact dermatitis due to plants, except food Telemedicine with Poly Salvador [employer] 09/11/2019 Obesity due to excess calories Telemedicine with Poly Salvador [employer] 09/11/2019 Z68.37 - Body mass index (BM I) 37.0-37.9, adult Telemedicine with Poly [facility] 09/11/2019 Dermatitis due to contact wi th poison spencer Telemedicine with Poly Salvador [employer] 09/05/2019 Obesity due to excess calories Telemedicine with Poly Salvador [employer] 09/05/2019 Z68.37 - Body mass index (BM I) 37.0-37.9, adult Telemedicine with Poly [facility] 09/05/2019 Obesity due to excess calories Medical E stablished Patient with Miguel Holley [employer] 08/17/2019 Z68.37 - Body mass index (BM I) 37.0-37.9, adult Medical Established Patient with Miguelcristal Holley EN[employer]ELOPE PATTERNMAKER 08/17/2019 Generalized anxiety disorder BH Establis hed Patient with Anh RIBEIROW-S 07/06/2019 Anxiety disorder NOS Medical New Patient with Allyson Everett ENVELOPE PATTERNMAKER 07/06/2019 Depression Medical New Patient with Allyson Floyd ENVELOPE PATTERNMAKER 07/06/2019 Diabetes Risk Test Score was one score Medical New Patient with Allyson Floyd ENVELOPE PATTERNMAKER 07/06/2019 Idiopathic insomnia Medical New Patient with Allyson Floyd [employer]ELOPE PATTERNMAKER 07/06/2019 Obesity due to excess calories Medical N ew Patient with Allyson Floyd ENVELOPE PATTERNMAKER 07/06/2019 Z68.39 - Body mass index (BM I) 39.0-39.9 adult Medical New Patient with Allyson Floyd ENVELOPE PATTERNMAKER 07/06/2019 Findings Encounter Date L25.5 - Unspecified contact dermatitis due to plants, except food Medical Established Patient with Poly Franco [employer]EL[employer] PATTERNMAKER 09/14/2019 Obesity due to excess calories Medical E stablished Patient with Poly Franco [employer] 09/14/2019 Z68.37 - Body mass index (BM I) 37.0-37.9, adult Medical Established Patient with Ploy Franco [employer] 09/14/2019 L25.5 - Unspecified contact dermatitis due to plants, except food Telemedicine with Poly Franco [employer] 09/11/2019 Obesity due to excess calories [facility] Z68.37 - Body mass index (BM I) 37.0-37.9, adult Telemedicine with Poly [facility] 09/11/2019 Dermatitis due to contact wi th poison spencer Telemedicine with Poly Franco [employer] 09/05/2019 Obesity due to excess calories [facility]/05/2019 Z68.37 - Body mass index (BM I) 37.0-37.9, adult Telemedicine with Poly Franco [employer] 09/05/2019 Obesity due to excess calories Medical E stablished Patient with Miguel Holley [employer] 08/17/2019 Z68.37 - Body mass index (BM I) 37.0-37.9, adult Medical Established Patient with Miguelcristal Holley [employer] 08/17/2019 Generalized anxiety disorder BH Establis hed Patient with Anh VIDAL 07/06/2019 Anxiety disorder NOS Medical New Patient with Allyson Floyd [employer]ELOPE PATTERNMAKER 07/06/2019 Depression Medical New Patient with Allyson Floyd ENVELOPE PATTERNMAKER 07/06/2019 Diabetes Risk Test Score was one score Medical New Patient with Allyson Floyd ENVELOPE PATTERNMAKER 07/06/2019 Idiopathic insomnia Medical New Patient with Allyson Floyd [employer] 07/06/2019 Obesity due to excess calories Medical N ew Patient with Allyson Floyd ENVELOPE PATTERNMAKER 07/06/2019 Z68.39 - Body mass index (BM I) 39.0-39.9 adult Medical New Patient with Allyson Floyd ENVELOPE PATTERNMAKER 07/06/2019 Findings Encounter Date Obesity due to excess calories Medical E stablished Patient with Poly Franco [employer]EL[employer] PATTERNMAKER 11/06/2019 Z68.36 - Body mass index (BM I) 36.0-36.9, adult Medical Established Patient with Poly Wagonerle ENVELOPE PATTERNMAKER 11/06/2019 Obesity due to excess calories Medical E stablished Patient with Poly Wagonerle [employer] PATTERNMAKER 10/12/2019 Z68.38 - Body mass index (BM I) 38.0-38.9, adult Medical Established Patient with Polykamryn Wagonerle [employer] 10/12/2019 L25.5 - Unspecified contact dermatitis due to plants, except food Medical Established Patient with Poly Wagonerle [employer]EL[employer] PATTERNMAKER 09/14/2019 Obesity due to excess calories Medical E stablished Patient with Poly Salvador [employer] 09/14/2019 Z68.37 - Body mass index (BM I) 37.0-37.9, adult Medical Established Patient with Poly Wagonerle [employer] 09/14/2019 L25.5 - Unspecified contact dermatitis due to plants, except food Telemedicine with Poly Wagonerle [employer] 09/11/2019 Obesity due to excess calories Telemedicine with Poly Wagonerle [employer] 09/11/2019 Z68.37 - Body mass index (BM I) 37.0-37.9, adult Telemedicine with Poly Wagonerle [employer] 09/11/2019 Dermatitis due to contact wi th poison spencer Telemedicine with Poly Wagonerle [employer] 09/05/2019 Obesity due to excess calories Telemedicine with Poly Salvador [employer] 09/05/2019 Z68.37 - Body mass index (BM I) 37.0-37.9, adult Telemedicine with Poly Salvador [employer] 09/05/2019 Obesity due to excess calories Medical E stablished Patient with Miguel Holley [employer] 08/17/2019 Z68.37 - Body mass index (BM I) 37.0-37.9, adult Medical Established Patient with Miguel Holley [employer] 08/17/2019 Generalized anxiety disorder BH Establis hed Patient with Anh VIDAL 07/06/2019 Anxiety disorder NOS Medical New Patient with Allyson Floyd ENVELOPE PATTERNMAKER 07/06/2019 Depression Medical New Patient with Allyson Floyd ENVELOPE PATTERNMAKER 07/06/2019 Diabetes Risk Test Score was one score Medical New Patient with Allyson Floyd ENVELOPE PATTERNMAKER 07/06/2019 Idiopathic insomnia Medical New Patient with Allyson Floyd ENVELOPE PATTERNMAKER 07/06/2019 Obesity due to excess calories Medical N ew Patient with Allyson Floyd ENVELOPE PATTERNMAKER 07/06/2019 Z68.39 - Body mass index (BM I) 39.0-39.9 adult Medical New Patient with Allyson Floyd ENVELOPE PATTERNMAKER 07/06/2019 Findings Encounter Date Obesity due to excess calories Medical E stablished Patient with Poly Franco ENVELOPE PATTERNMAKER 12/05/2019 R21 - Rash and other nonspec [facility] skin eruption Medical Established Patient with Poly Wagonerle [employer]VELOPE PATTERNMAKER 12/05/2019 Z68.35 - Body mass index (BM I) 35.0-35.9, adult Medical Established Patient with Poly Wagonerle [employer]VELOPE PATTERNMAKER 12/05/2019 Obesity due to excess calories Medical E stablished Patient with Polykamryn Wagonerle ENVELOPE PATTERNMAKER 11/06/2019 Z68.36 - Body mass index (BM I) 36.0-36.9, adult Medical Established Patient with Polykamryn Wagonerle [employer]ELOPE PATTERNMAKER 11/06/2019 Obesity due to excess calories Medical E stablished Patient with Poly Salvador [employer] 10/12/2019 Z68.38 - Body mass index (BM I) 38.0-38.9, adult Medical Established Patient with Poly Salvador [employer] 10/12/2019 L25.5 - Unspecified contact dermatitis due to plants, except food Medical Established Patient with Poly Wagonerle [employer]EL[employer] PATTERNMAKER 09/14/2019 Obesity due to excess calories Medical E stablished Patient with Poly Salvador [employer] 09/14/2019 Z68.37 - Body mass index (BM I) 37.0-37.9, adult Medical Established Patient with Poly Salvador [employer] 09/14/2019 L25.5 - Unspecified contact dermatitis due to plants, except food Telemedicine with Polykamryn Wagonerle [employer] 09/11/2019 Obesity due to excess calories Telemedicine with Poly Salvador [employer] 09/11/2019 Z68.37 - Body mass index (BM I) 37.0-37.9, adult Telemedicine with Poly Wagonerle [employer] 09/11/2019 Dermatitis due to contact wi th poison spencer Telemedicine with Poly Wagonerle [employer] 09/05/2019 Obesity due to excess calories Telemedicine with Poly Franco [employer]EL[employer] PATTERNMAKER 09/05/2019 Z68.37 - Body mass index (BM I) 37.0-37.9, adult Telemedicine with Poly Franco [employer]EL[employer] PATTERNMAKER 09/05/2019 Obesity due to excess calories Medical E stablished Patient with Miguel Holley ENVELOPE PATTERNMAKER 08/17/2019 Z68.37 - Body mass index (BM I) 37.0-37.9, adult Medical Established Patient with Miguel Holley [employer]EL[employer] PATTERNMAKER 08/17/2019 Generalized anxiety disorder BH Establis hed Patient with Anh RODAS-S 07/06/2019 Anxiety disorder NOS Medical New Patient with Allyson Nye [employer]ELOPE PATTERNMAKER 07/06/2019 Depression Medical New Patient with Allyson Everett ENVELOPE PATTERNMAKER 07/06/2019 Diabetes Risk Test Score was one score Medical New Patient with Allyson Muse [employer]VELOPE PATTERNMAKER 07/06/2019 Idiopathic insomnia Medical New Patient with Allyson Muse ENVELOPE PATTERNMAKER 07/06/2019 Obesity due to excess calories Medical N ew Patient with Allyson Everett ENVELOPE PATTERNMAKER 07/06/2019 Z68.39 - Body mass index (BM I) 39.0-39.9 adult Medical New Patient with Allysonheidi Floyd ENVELOPE PATTERNMAKER 07/06/2019 Findings Encounter Date Obesity due to excess calories Medical E stablished Patient with Miguel Holley [employer]EL[employer] PATTERNMAKER 03/05/2020 Z68.37 - Body mass index [BM I] 37.0-37.9, adult Medical Established Patient with Miguel Holley [employer] 03/05/2020 Obesity due to excess calories Medical E stablished Patient with Poly Franco ENVELOPE PATTERNMAKER 12/05/2019 R21 - Rash and other nonspec [facility] skin eruption Medical Established Patient with Polykamryn Wagonerle [employer]ELOPE PATTERNMAKER 12/05/2019 Z68.35 - Body mass index (BM I) 35.0-35.9, adult Medical Established Patient with Poly Salvador [employer]EL[employer] PATTERNMAKER 12/05/2019 Obesity due to excess calories Medical E stablished Patient with Poly Salvador [employer]EL[employer] PATTERNMAKER 11/06/2019 Z68.36 - Body mass index (BM I) 36.0-36.9, adult Medical Established Patient with Poly Salvador [employer]EL[employer] PATTERNMAKER 11/06/2019 Obesity due to excess calories Medical E stablished Patient with Poly Salvador [employer]EL[employer] PATTERNMAKER 10/12/2019 Z68.38 - Body mass index (BM I) 38.0-38.9, adult Medical Established Patient with Poly Franco [employer]EL[employer] PATTERNMAKER 10/12/2019 L25.5 - Unspecified contact dermatitis due to plants, except food Medical Established Patient with Poly Wagonerle EN[employer]ELOPE PATTERNMAKER 09/14/2019 Obesity due to excess calories Medical E stablished Patient with Poly Wagonerle [employer]VELOPE PATTERNMAKER 09/14/2019 Z68.37 - Body mass index (BM I) 37.0-37.9, adult Medical Established Patient with Poly Franco [employer]EL[employer] PATTERNMAKER 09/14/2019 L25.5 - Unspecified contact dermatitis due to plants, except food Telemedicine with Poly Wagonerle [employer] 09/11/2019 Obesity due to excess calories Telemedicine with Poly Franco [employer] 09/11/2019 Z68.37 - Body mass index (BM I) 37.0-37.9, adult Telemedicine with Poly Franco [employer] 09/11/2019 Dermatitis due to contact wi th poison spencer Telemedicine with Poly Franco [employer] 09/05/2019 Obesity due to excess calories Telemedicine with Poly Franco [employer] 09/05/2019 Z68.37 - Body mass index (BM I) 37.0-37.9, adult Telemedicine with Poly Franco [employer] 09/05/2019 Obesity due to excess calories Medical E stablished Patient with Miguel Holley [employer] 08/17/2019 Z68.37 - Body mass index (BM I) 37.0-37.9, adult Medical Established Patient with Miguel Holley [employer] 08/17/2019 Generalized anxiety disorder BH Establis hed Patient with Anh VIDAL 07/06/2019 Anxiety disorder NOS Medical New Patient with Allyson Everett [employer] 07/06/2019 Depression Medical New Patient with Allyson Muse [employer] 07/06/2019 Diabetes Risk Test Score was one score Medical New Patient with Allyson Muse [employer] 07/06/2019 Idiopathic insomnia Medical New Patient with Allyson Muse [employer] 07/06/2019 Obesity due to excess calories Medical N ew Patient with Allyson Muse [employer] 07/06/2019 Z68.39 - Body mass index (BM I) 39.0-39.9 adult Medical New Patient with Allyson Everett [employer] 07/06/2019 Findings Encounter Date Cough Telemedicine Establi sted Patient with Miguel Holley [employer] 03/19/2020 Exposure to a viral disease Telemedicine Establisted Patient with Miguel Dell [employer] 03/19/2020 Obesity due to excess calories Telemedic ine Establisted Patient with Miguel Holley [employer] 03/19/2020 Z68.37 - Body mass index [BM I] 37.0-37.9, adult Telemedicine Establisted Patient with Miguel Holley [employer] 03/19/2020 Obesity due to excess calories Medical E stablished Patient with Miguel Holley [employer] 03/05/2020 Z68.37 - Body mass index [BM I] 37.0-37.9, adult Medical Established Patient with Miguel Holley [employer] 03/05/2020 Obesity due to excess calories Medical E stablished Patient with Poly Franco [employer] 12/05/2019 R21 - Rash and other nonspec [facility] skin eruption Medical Established Patient with Poly Wagonerle [employer] 12/05/2019 Z68.35 - Body mass index (BM I) 35.0-35.9, adult Medical Established Patient with Poly Franco [employer] 12/05/2019 Obesity due to excess calories Medical E stablished Patient with Poly Wagonerle [employer] 11/06/2019 Z68.36 - Body mass index (BM I) 36.0-36.9, adult Medical Established Patient with Poly Wagonerle [employer] 11/06/2019 Obesity due to excess calories Medical E stablished Patient with Poly Wagonerle [employer] 10/12/2019 Z68.38 - Body mass index (BM I) 38.0-38.9, adult Medical Established Patient with Polykamryn Wagonerle [employer] 10/12/2019 L25.5 - Unspecified contact dermatitis due to plants, except food Medical Established Patient with Poly Franco [employer] 09/14/2019 Obesity due to excess calories Medical E stablished Patient with Poly Wagonerle [employer] 09/14/2019 Z68.37 - Body mass index (BM I) 37.0-37.9, adult Medical Established Patient with Poly Wagonerle [employer] 09/14/2019 L25.5 - Unspecified contact dermatitis due to plants, except food Telemedicine with Poly Wagonerle [employer] 09/11/2019 Obesity due to excess calories Telemedicine with Poly Wagonerle [employer] 09/11/2019 Z68.37 - Body mass index (BM I) 37.0-37.9, adult Telemedicine with Poly Franco [employer] 09/11/2019 Dermatitis due to contact wi th poison spencer Telemedicine with Poly Franco [employer] 09/05/2019 Obesity due to excess calories Telemedicine with Poly Franco [employer] 09/05/2019 Z68.37 - Body mass index (BM I) 37.0-37.9, adult Telemedicine with Poly Franco [employer] 09/05/2019 Obesity due to excess calories Medical E stablished Patient with Miguel Holley [employer] 08/17/2019 Z68.37 - Body mass index (BM I) 37.0-37.9, adult Medical Established Patient with Miguel Holley [employer] 08/17/2019 Generalized anxiety disorder BH Establis hed Patient with Anh VIDAL 07/06/2019 Anxiety disorder NOS Medical New Patient with Allyson Nye [employer] 07/06/2019 Depression Medical New Patient with Allyson Everett [employer] 07/06/2019 Diabetes Risk Test Score was one score Medical New Patient with Allyson Muse [employer] 07/06/2019 Idiopathic insomnia Medical New Patient with Allyson Muse [employer] 07/06/2019 Obesity due to excess calories Medical N ew Patient with Allyson Muse [employer] 07/06/2019 Z68.39 - Body mass index (BM I) 39.0-39.9 adult Medical New Patient with Allyson Floyd [employer] 07/06/2019 Diagnosis COVID-19 Fatty liver Other chronic [...] Everywhere. * Coronavirus Disease (COVID-19): General Info (Swiss) documented in this encounter Additional Source Comments INFORMATION SOURCE (unrecogn ized section and content) DATE CREATED AUTHOR 11/24/2017 [facility] DATE CREATED AUTHOR AUTHOR'S ORGANIZ ATION 08/26/2018 [facility] DATE CREATED AUTHOR AUTHOR'S ORGANIZ ATION 09/24/2020 [facility] DATE CREATED AUTHOR AUTHOR'S ORGANIZ ATION 10/30/2024 [facility] DATE CREATED AUTHOR AUTHOR'S ORGANIZ ATION 02/08/2025 [facility] EPIC Evaluations & [...] US TRANSVAGINAL, NON OB Dana Akins MD [address] [place] [id number] [facility] Ultrasound [address] [place] [address] Reason Comments Emesis multiple episodes si nce [...] be administered over at least 10 minutes. 010 (Given - Provid er: Erica Garcia RN) PRN Medication Order 10/13/2020 10/14/2020 10/15/2020 iopamidol (ISOVUE-370) 76 % injection 75 mL (COMPLETED) 75 mL, Intravenous, IMG ONCE PRN, Other, Starting on Wed10/15/20 at 0120, For 1 dose 0126 (Given - Provid er: Lina Allen) Care Teams (unrecognized sec tion and content) Extract Mixer Relationship Specialty Start Date End Date Dell Miguelcristal Berry APRN [facility] PCP - General Family Medicine 04/08/20 Extract Mixer Relationship Specialty Start Date End Date DellMiguel APRN [facility] PCP - General Family Medicine 04/08/20 Extract Mixer Relationship Specialty Start Date End Date Dell Miguelcristal Berry APRN [facility] PCP - General Family Medicine 04/08/20 Extract Mixer Relationship Specialty Start Date End Date Dell Miguelcristal Berry APRN [facility] PCP - General Family Medicine 04/08/20 FOR [...] BE BASED ON THE PRIMARY CLINICAL RECORDS. [employer] [facility]. provides no warranty or guarantee of the accuracy or completeness of information in this document.
[2025-02-09 09:52] VITALS: BP 121/74; PULSE 81
== END 2025-02-09 10:20 | disposition home or self-care (01) ==
LOC: US 09:03 → FBC 09:04
PROVIDERS: Visit Provider Obstetrics & Gynecology
DX: O24.419 Gestational diabetes mellitus in pregnancy, unspecified control (principal); Z3A.36 36 weeks gestation of pregnancy
CPT/HCPCS: 76818

== ENCOUNTER 2025-02-13 08:05 | Outpatient (OUT) | payer MEDICAID, SELFPAY ==
--- NOTE | 2025-02-13 08:05 | US_ITS ---
[facility] [place] [address] Patient Name: TARA FLOREZ MRN: [id number] date: 1995 Sex: F Assigned Patient Location: Current Patient Location: Accession/Order Number: [id number] Exam Date: 02/13/2025 08:08 Report Date: 02/13/2025 10:03 At the request of: BRUCE CARD DO Procedure: US OB BPP w non-stress BIOPHYSICAL PROFILE: CLINICAL INFORMATION: Hyperglycemia during COMPARISON: 02/09/2025 There is a single live intrauterine gestation in cephalic presentation. The reported gestational age is 37 weeks 0 days. The heart rate measures 142 beats per minute. FINDINGS: TONE: 1 or more episodes of activity extension and flexion of extremity or opening and closing of the hand [Y] 2/2 GROSS BODY MOVEMENTS: 3 or more discrete body or limb movements [Y] 2/2 BREATHING MOVEMENTS: 1 or more episodes of breathing lasting at least 30 seconds [Y] 2/2 DEE: A single deepest vertical pocket of amniotic fluid greater than 2 cm [Y] 2/2 DEE: 14.8 cm Total score: 8/8 US/US OB BPP w non-stress IMPRESSION: NORMAL BIOPHYSICAL PROFILE Impression dictated by: Lindsey Bright M.D. 02/13/2025 10:03 AM Dictation Location: [place] [address] Electronically authenticated by: [id number] Y Date: 02/13/2025 10:03
--- OUTSIDE RECORDS SUMMARY | 2025-02-13 08:10 | XMS_ITS | CCD ---
Author Organization [facility] Care Team Providers Care Tank Pumper Panelboard Name Role Phone NO FAMILY PHYSICIAN, 837 Unavailable Unavail able FELIX GALVAN Unavailable Unavailable Miguel Holley Primary Care Provider Jackson Haas Primary Care Provider Miguel Holley Primary Care Provider Miguel Holley Primary Care Provider Miguel Holley CNP Primary Care Provider Dell DYE BOARDING MACHINE OPERATOR - DIANELYS, Miguel Berry Primary Care Provider MIGUEL HOLLEY Referring Unavailable MIGUEL HOLLEY Primary Care Unavailable Dell DYE BOARDING MACHINE OPERATOR - DIANELYS, Miguel Berry Primary Care Provider Dell DYE BOARDING MACHINE OPERATOR - DIANELYS, Miguel Berry Primary Care Provider Shona Lucio Primary Care Physician Yeison Holley DYE BOARDING MACHINE OPERATOR - TELEVISION PRODUCTION TECHNICIAN, Miguel Berry Primary Care Provider Dell DYE BOARDING MACHINE OPERATOR - Miguel IVORY Primary Care Provider Unavailable [...] Hour] Drug Allergy 03-05-20 20 Wellbutrin SR [facility] Work Phone: Corticosteroids (6 sources) Triamcinolone Drug Allergy 10-14-19 14 Other (See Comments) [facility] Lisdexamfetamine (1 source) Lisdexamfetamine Drug Allergy 10-04-19 21 Vyvanse [facility] Work Phone: Naltrexone (4 sources) Naltrexone; Translations: [Naltrexone HCl 50 MG Oral Tablet] Drug Allergy 03-05-20 20 Naltrexone HCl [facility] Work Phone: (1 source) Triamcinolone; Translations: [TRIAMCINOLONE ACETONIDE] Drug Allergy 10-12-19 15 [facility] Repository (16 sources) Triamcinolone; Translations: [Kenalog] Drug Allergy 07-06-19 20 [facility] Work Phone: (20 sources) Triamcinolone Drug Allergy 10-14-19 14 Other (See Comments), Other, Hives [place], [place] (17 sources) Poison spencer Allergy to substance 07-20-19 [facility] Work Phone: (3 sources) buPROPion; Translations: [Wellbutrin SR 100 MG Oral Tablet Extended Release 12 Hour] Drug Allergy 03-05-20 20 Wellbutrin SR [facility] Work Phone: (3 sources) Naltrexone; Translations: [Naltrexone HCl 50 MG Oral Tablet] Drug Allergy 03-05-20 20 Naltrexone HCl [facility] Work Phone: (20 sources) Other Propensity [...] Active Continuous Glucose Sensor (Dexcom G6 Sensor) [facility] (19 sources) Start: 01-18-2025 Continuous Glucose Sensor (Dexcom G6 Sensor) [facility] Indications: Elevated glucose tolerance test , 28 weeks gestation of ([facility]) , Gestational diabetes mellitus (GDM), antepartum, gestational diabetes method of control unspecified ([facility]) 1 each Every 10 (ten) days 3 each 3 01/18/2025 Active Start: 12-13-2024 Continuous Glu cose Sensor (Dexcom G6 Sensor) [facility] Indications: Elevated glucose tolerance test , 28 weeks gestation of ([facility]) , Gestational diabetes mellitus (GDM), antepartum, gestational diabetes method of control unspecified ([facility]) 1 each Every 10 (ten) days 3 each 3 12/13/2024 Active Continuous Glucose Transmitt er (Dexcom G6 transmitter) [facility] (17 sources) Start: 12-19-2024 Continuous Glu cose Transmitter (Dexcom G6 transmitter) [facility] Indications: Gestational diabetes mellitus (GDM), antepartum, gestational diabetes method of control unspecified ([facility]) Use as instructed 1 each 12/19/2024 Active [...] ibuprofen 800 MG tablet 01/06/2024 Active levonorgestrel 0.486522 mg/hr intrauterine system (17 sources) Progestin, Progestin-containin g Intrauterine Device Start : 07-20 Mirena (52 MG) 20 MCG/24HR Intrauterine Intrauterine device 07/20/2019 Provider: 24 hr metFORMIN hydrochloride 500 mg extended release oral tablet (20 sources) Biguanide Start : 06-14 End: 06-14 take 1 tablet by mouth every twenty-four hours at mealtime metFORMIN XR (Glucophage-XR) 500 MG 24 hr tablet Indications: Hyperglycemia during ([facility]) Take 1 tablet (500 mg) by mouth in the evening. Take with meals Do not crush, chew, or split. 30 tablet 11 01/09/2025 Active methylPREDNISolone (19 sources) Corticosteroid Start : [...] supervision of normal first in first trimester ([facility]) Take 1 tablet by mouth Daily [...] MG Oral Tablet 03/05/2020 Provider: Miguel Holley TELEVISION PRODUCTION TECHNICIAN Completed/Discontinued Medications Medication Drug Class(es) Dates Sig [...] Facility US OB BPP W NON-STRESS on 02-09-2025 [place] [address] Ultrasound Report Signed Patient: ESTEFANIA CEDEÑO MR#: [id number] : 1995 Acct:[id number] Age/Sex: 29 / F ADM Date: 02/09/25 Loc: US Attending Dr: Aditya Cervantes D.O. Ordering Physician: Aditya Cervantes D.O. Date of Service: 02/09/25 Procedure(s): US OB BPP w non-stress Accession Number(s): [id number] cc: Aditya Cervantes D.O.; Physician,Non-Staff [place] [id number] Patient Name: ESTEFANIA CEDEÑO MRN: [id number] date: 1995 Sex: F Assigned Patient Location: [facility] Current Patient Location: Accession/Order Number: [id number] Exam Date: 02/09/2025 09:15 Report Date: 02/09/2025 10:39 At the request of: ADITYA CERVANTES DO Procedure: US OB BPP w non-stress BIOPHYSICAL PROFILE: CLINICAL INFORMATION: LGA COMPARISON: 02/02/2025 There is a single live intrauterine gestation in cephalic presentation. The reported gestational age is 36 weeks 3 days. The heart rate [id number] beats per minute. FINDINGS: TONE: 1 or more episodes of activity extension and flexion of extremity or opening and closing of the hand [Y] 2/2 GROSS BODY MOVEMENTS: 3 or more discrete body or limb movements [Y] 2/2 BREATHING MOVEMENTS: 1 or more episodes of breathing lasting at least 30 seconds [Y] 0/2 DEE: A single deepest vertical pocket of amniotic fluid greater than 2 cm [Y] 2/2 DEE: 11.5 cm cm Total score: 6/8 US/US OB BPP w non-stress IMPRESSION: FAILED BIOPHYSICAL PROFILE WITH NO BREATHING. Impression dictated by: Lindsey Bright M.D. 02/09/2025 10:39 AM Dictation Location: [place] [address] Electronically authenticated by: [id number] Y Date: 02/09/2025 10:39 Dictated By: Lindsey Bright M.D. Signed By: 02/09/25 1042 DD/ 1039 TD/TT: Aquarist: [facility] Radiology, Radiologi MD raymond - 02/09/2025 [place] [address] Ultrasound Report Signed Patient: ESTEAFNIA CEDEÑO MR#: [id number] : 1995 Acct:[id number] Age/Sex: 29 / F ADM Date: 02/09/25 Loc: US Attending Dr: Aditya Cervantes D.O. Ordering Physician: Aditya Cervantes D.O. Date of Service: 02/09/25 Procedure(s): US OB BPP w non-stress Accession Number(s): [id number] cc: Aditya Cervantes D.O.; Physician,Non-Staff Roberto The [place] [id number] Patient Name: ESTEFANIA CEDEÑO MRN: [facility]:[id number] date: 1995 Sex: F Assigned Patient Location: [facility] Current Patient Location: Accession/Order Number: [id number] Exam Date: 02/09/2025 09:15 Report Date: 02/09/2025 10:39 At the request of: ADITYA CERVANTES DO Procedure: US OB BPP w non-stress BIOPHYSICAL PROFILE: CLINICAL INFORMATION: LGA COMPARISON: 02/02/2025 There is a single live intrauterine gestation in cephalic presentation. The reported gestational age is 36 weeks 3 days. The heart rate beats per minute. FINDINGS: TONE: 1 or more episodes of activity extension and flexion of extremity or opening and closing of the hand [Y] 2/2 GROSS BODY MOVEMENTS: 3 or more discrete body or limb movements [Y] 2/2 BREATHING MOVEMENTS: 1 or more episodes of breathing lasting at least 30 seconds [Y] 0/2 DEE: A single deepest vertical pocket of amniotic fluid greater than 2 cm [Y] 2/2 DEE: 11.5 cm cm Total score: 6/8 US/US OB BPP w non-stress IMPRESSION: FAILED BIOPHYSICAL PROFILE WITH NO BREATHING. Impression dictated by: Lindsey Bright M.D. 02/09/2025 10:39 AM Dictation Location: [employer] Electronically authenticated by: [id number] Y Date: 02/09/2025 10:39 Dictated By: Lindsey Bright M.D. Signed By: 02/09/25 1042 DD/ 1039 TD/TT: Aquarist: [facility] Radiology Study observation (narrative) [facility] US OB BPP W NON-STRESS Ordered By: Radiologist Radiology on 02-09-2025 [facility] Work Phone: US OB BPP W NON-STRESS on 02-02-2025 [place] [address] Ultrasound Report Signed Patient: ESTEFANIA CEDEÑO MR#: [id number] : 1995 Acct:[id number] Age/Sex: 29 / F ADM Date: 02/02/25 Loc: US Attending Dr: Aditya Cervantes D.O. Ordering Physician: Aditya Cervantes D.O. Date of Service: 02/02/25 Procedure(s): US OB BPP w non-stress Accession Number(s): [id number] cc: Aditya Cervantes D.O.; Physician,Non-Staff [place] The [address] [address] Patient Name: ESTEFANIA CEDEÑO MRN: [id number] date: 1995 Sex: F Assigned Patient Location: [facility] Current Patient Location: Accession/Order Number: [id number] Exam Date: 02/02/2025 09:12 Report Date: 02/02/2025 10:17 At the request of: ADITYA BILLY DO Procedure: US OB BPP w [...] Bright M.D. 02/02/2025 10:17 AM Dictation Location: [employer] Electronically authenticated by: [id number] Y Date: 02/02/2025 10:17 Dictated By: Lindsey Bright M.D. Signed By: 02/02/25 1020 DD/ 1017 TD/TT: Aquarist: [facility] Radiology, Radiologi MD raymond - 02/02/2025 [place] [address] Ultrasound Report Signed Patient: ESTEFANIA CEDEÑO MR#: [id number] : 1995 Acct:[id number] Age/Sex: 29 / F ADM Date: 02/02/25 Loc: US Attending Dr: Aditya Cervantes D.O. Ordering Physician: Aditya Cervantes D.O. Date of Service: 02/02/25 Procedure(s): US OB BPP w non-stress Accession Number(s): [id number] cc: Aditya Cervantse D.O.; Physician,Non-Staff Roberto The [place] [id number] Patient Name: ESTEFANIA CEDEÑO MRN: [id number] date: 1995 Sex: F Assigned Patient Location: [facility] Current Patient Location: Accession/Order Number: [id number] Exam Date: 02/02/2025 09:12 Report Date: 02/02/2025 [...] Bright M.D. 02/02/2025 10:17 AM Dictation Location: [place] [address] Electronically authenticated by: [id number] Y Date: 02/02/2025 10:17 Dictated By: Lindsey Bright M.D. Signed By: 02/02/25 1020 DD/ 1017 TD/TT: Aquarist: [facility] Radiology Study observation (narrative) [facility] OB BPP W NON-STRESS Ordered By: Radiologist Radiology on 02-02-2025 [facility] Work Phone: No Panel InformationOrdered By: Radiologist Radiology on 01-26-2025 [facility] Work Phone: No Panel Informationon 01-26 Radiology Study observation (narrative) [facility] OB BPP W NON-STRESS on 01-26-2025 [place] [address] Ultrasound Report Signed Patient: ESTEFANIA CEDEÑO MR#: [id number] : 1995 Acct:[id number] Age/Sex: 29 / F ADM Date: 01/26/25 Loc: US Attending Dr: Aditya Cervantes D.O. Ordering Physician: Aditya Cervantes D.O. Date of Service: 01/26/25 Procedure(s): US OB BPP w non-stress Accession Number(s): [id number] cc: Aditya Cervantes D.O.; Physician,Non-Staff Roberto The [place] [id number] Patient Name: ESTEFANIA CEDEÑO MRN: [id number] date: 1995 Sex: F Assigned Patient Location: [facility] Current Patient Location: Accession/Order Number: [id number] Exam Date: 01/26/2025 09:08 Report Date: 01/26/2025 [...] Bright M.D. 01/26/2025 11:00 AM Dictation Location: [place] [address] Electronically authenticated by: [id number] Y Date: 01/26/2025 11:00 Dictated By: Lindsey Bright M.D. Signed By: 01/26/25 1103 DD/ 1100 TD/TT: Aquarist: [facility] Radiology, Radiologi MD raymond - 01/26/2025 [place] [address] Ultrasound Report Signed Patient: ESTEFANIA CEDEÑO MR#: [id number] : 1995 Acct:[id number] Age/Sex: 29 / F ADM Date: 01/26/25 Loc: US Attending Dr: Aditya Cervantes D.O. Ordering Physician: Aditya Cervantes D.O. Date of Service: 01/26/25 Procedure(s): US OB BPP w non-stress Accession Number(s): [id number] cc: Aditya Cervantes D.O.; Physician,Non-Staff Roberto The [address] [address] Patient Name: ESTEFANIA CEDEÑO MRN: [facility]:[id number] date: 1995 Sex: F Assigned Patient Location: [facility] Current Patient Location: Accession/Order Number: [id number] Exam Date: 01/26/2025 09:08 Report Date: 01/26/2025 [...] Bright M.D. 01/26/2025 11:00 AM Dictation Location: [employer] Electronically authenticated by: [id number] Y Date: 01/26/2025 11:00 Dictated By: Lindsey Bright M.D. Signed By: 01/26/25 1103 DD/ 1100 TD/TT: Aquarist: [facility] OB GROWTHon 01-26-2025 [place] [address] Ultrasound Report Signed Patient: ESTEFANIA CEDEÑO MR#: [id number] : 1995 Acct:[id number] Age/Sex: 29 / F ADM Date: 01/26/25 Loc: US Attending Dr: Aditya Cervantes D.O. Ordering Physician: Aditya Cervantes D.O. Date of Service: 01/26/25 Procedure(s): US OB growth Accession Number(s): [id number] cc: Aditya Cervantes D.O.; Physician,Non-Staff M.DAsiya [place] [id number] Patient Name: ESTEFANIA CEDEÑO MRN: [id number] date: 1995 Sex: F Assigned Patient Location: Current Patient Location: Accession/Order Number: [id number] Exam Date: 01/26/2025 09:08 Report Date: 01/26/2025 [...] Bright M.D. 01/26/2025 11:00 AM Dictation Location: [place] [address] Electronically authenticated by: [id number] Y Date: 01/26/2025 11:00 Dictated By: Lindsey Bright M.D. Signed By: 01/26/25 1103 DD/ 1100 TD/TT: Aquarist: [facility], Radiologestefania andrade MD - 01/26/2025 [place] [address] Ultrasound Report Signed Patient: ESTEFANIA CEDEÑO MR#: [id number] : 1995 Acct:[id number] Age/Sex: 29 / F ADM Date: 01/26/25 Loc: US Attending Dr: Aditya Cervantes D.O. Ordering Physician: Aditya Cervantes D.O. Date of Service: 01/26/25 Procedure(s): US OB growth Accession Number(s): [id number] cc: Aditya Cervantes D.O.; Physician,Non-Staff Roberto The [place] [id number] Patient Name: ESTEFANIA CEDEÑO MRN: [facility]:[id number] date: 1995 Sex: F Assigned Patient Location: Current Patient Location: Accession/Order Number: [id number] Exam Date: 01/26/2025 09:08 Report Date: 01/26/2025 [...] AM Dictation Location: [email or web address] Electronically authenticated by: [id number] Y Date: 01/26/2025 11:00 Dictated By: Lindsey Bright M.D. Signed By: 01/26/25 1103 DD/ 1100 TD/TT: Aquarist: [facility] OB BPP W NON-STRESS on 01-19-2025 [place] [address] Ultrasound Report Signed Patient: ESTEFANIA CEDEÑO MR#: [id number] : 1995 Acct:[id number] Age/Sex: 29 / F ADM Date: 01/19/25 Loc: US Attending Dr: Aditya Cervantes D.O. Ordering Physician: Aditya Cervantes D.O. Date of Service: 01/19/25 Procedure(s): US OB BPP w non-stress Accession Number(s): [id number] cc: Aditya Cervantes D.O.; Physician,Non-Staff Roberto The [address] [address] Patient Name: ESTEFANIA CEDEÑO MRN: [facility]:[id number] date: 1995 Sex: F Assigned Patient Location: [facility] Current Patient Location: Accession/Order Number: [id number] Exam Date: 01/19/2025 09:10 Report Date: 01/19/2025 [...] Saez M.D. 01/19/2025 2:26 PM Dictation Location: [place] [address] Electronically authenticated by: [id number] Y Date: 01/19/2025 14:26 Dictated By: Carroll Saez D.O. Signed By: 01/19/25 1429 DD/ 1426 TD/TT: Aquarist: [facility] Radiology Radiologestefania andrade MD - 01/19/2025 The [place] [id number] Ultrasound Report Signed Patient: ESTEFANIA CEDEÑO MR#: [id number] : 1995 Acct:[id number] Age/Sex: 29 / F ADM Date: 01/19/25 Loc: US Attending Dr: Aditya Cervantes D.O. Ordering Physician: Aditya Cervantes D.O. Date of Service: 01/19/25 Procedure(s): US OB BPP w non-stress Accession Number(s): [id number] cc: Aditya Cevrantes D.O.; Physician,Non-Staff Roberto The [place] [address] Patient Name: ESTEFANIA CEDEÑO MRN: [id number]:[id number] date: 1995 Sex: F Assigned Patient Location: [facility] Current Patient Location: Accession/Order Number: [id number] Exam Date: 01/19/2025 09:10 Report Date: 01/19/2025 [...] Saez M.D. 01/19/2025 2:26 PM Dictation Location: [email or web address] Electronically authenticated by: [id number] Y Date: 01/19/2025 14:26 Dictated By: Carroll Saez D.O. Signed By: 01/19/25 1429 DD/ 25 TD/TT: Aquarist: [facility] Radiology Study observation (narrative) [facility] US OB BPP W NON-STRESS Ordered By: Radiologist Radiology on 01-19-2025 [facility] Work Phone: Urinalysis macro (dipstick) panel (U)on 01-09-2025 Bilirubin, UA Negative Negative - 4(70) +++ mg/dL [facility] Blood, UA Negative Negative - 50 Chuy/mcL [facility] Clarity, UA Clear [facility] Color, UA Yellow [facility] Glucose, UA Negative Negative - 2000(110) ++++ mg/dL [facility] Interpretation and review of laboratory results Normal [facility] Ketones, UA Negative Negative - 160(16) ++++ mg/dL [facility] Leukocytes, UA Negative Negative - 500+++ Sadi/mcL [facility] Nitrite, UA Negative Negative - Positive [facility] pH, UA 6.5 5 - 9 [facility] Protein, UA Negative Negative - 2000(20) ++++ mg/dL [facility] Spec Grav, UA 1.015 1 - 1.03 [facility] Urobilinogen, UA 1.0 0.2 - 12 mg/dL [facility] US OB FOLLOW UP TRANSABDOMIN AL APPROACHon [...] II, MD, PHD at 28-Dec-2024 08:33:38 AM [facility] Normal Not Available Comment on above: Order Comment: US OB SCAN FOR GROWTH Estimated Date of Delivery: 03/06/25 Gestational Age as of 12/13/2024: 28w1d Urinalysis macro (dipstick) panel (U)on 12-27-2024 Bilirubin, UA Negative Negative - 4(70) +++ mg/dL [facility] Blood, UA Negative Negative - 50 Chuy/mcL [facility] Clarity, UA Clear [facility] Color, UA Yellow [facility] Glucose, UA Positive Negative - 1999(110) ++++ mg/dL [facility] Interpretation and review of laboratory results Abnormal [facility] Ketones, UA Negative Negative - 160(16) ++++ mg/dL [facility] Leukocytes, UA Negative Negative - 500+++ Sadi/mcL [facility] Nitrite, UA Negative Negative - Positive [facility] pH, UA 6 5 - 9 [facility] Protein, UA Positive Negative - 1999(20) ++++ mg/dL [facility] Spec Grav, UA 1.02 1 - 1.03 [facility] Urobilinogen, UA 1.0 0.2 - 12 mg/dL [facility] Urinalysis macro (dipstick) panel (U)on 12-13-2024 Bilirubin, UA Negative Negative - 4(70) +++ mg/dL [facility] Blood, UA Negative Negative - 50 Chuy/mcL [facility] Clarity, UA Clear [facility] Color, UA Yellow [facility] Glucose, UA Negative Negative - 1999(110) ++++ mg/dL [facility] Interpretation and review of laboratory results Normal [facility] Ketones, UA Negative Negative - 160(16) ++++ mg/dL [facility] Leukocytes, UA Negative Negative - 500+++ Sadi/mcL [facility] Nitrite, UA Negative Negative - Positive [facility] pH, UA 6 5 - 9 [facility] Protein, UA Negative Negative - 1999(20) ++++ mg/dL [facility] Spec Grav, UA 1.015 1 - 1.03 [facility] Urobilinogen, UA 1.0 0.2 - 12 mg/dL [facility] GLUCOSE TOLERANCE 3 HOURon 0 12-12-2024 GLUCOSE TOLERANCE 3 HOUR High mg/dL [facility] Comment on above: GLU FAST 85 (<95) Co l: 12/12/24 1118 GLU 1HR 198H (<180) Col: 12/12/24 1220 GLU 2HR 171H (<155) Col: 12/12/24 1320 GLU 3HR 74 (<140) Col: 12/12/24 1422 Interpretation and review of laboratory results Abnormal [facility] ECG 12-LEADon 12-07-[address] [address] Electrocardiograph Report Signed Patient: ESTEFANIA CEDEÑO MR#: [id number] : 1995 Acct:[id number] Age/Sex: 29 / F ADM Date: 12/05/24 Loc: CR Attending Dr: Latasha Padgett Ordering Physician: Latasha Padgett Date of Service: 12/05/24 Procedure(s): ECG 12 lead Accession Number(s): [id number] cc: [facility] Test Date: 2024-12-05 Pat Name: ESTEFANIA CEDEÑO Department: Room: - Gender: Female Vascular Physician: : 1995 Requested By: 0923 Order Number: [id number] [place] MD: ANTON THORPE Measurements Intervals [place] Rate: 68 P: 55 WA: 116 QRS: 72 QRSD: 94 T: 14 QT: 411 QTc: 439 Interpretive Statements SINUS RHYTHM WITH SHORT WA INTERVAL NONSPECIFIC T-WAVE ABNORMALITY No previous ECG available for comparison Electronically Signed On 12-07-2024 9:00:49 EDT by ANTON THORPE Dictated By: Anton Thorpe M.D. Signed By: 12/07/2489912/07/24899 DD/ 6 TD/TT: Aquarist: [facility] Radiology, Radiologestefania andrade MD - 12/07/2024 [place] [address] Electrocardiograph Report Signed Patient: ESTEFANIA CEDEÑO MR#: [id number] : 1995 Acct:[id number] Age/Sex: 29 / F ADM Date: 12/05/24 Loc: CR Attending Dr: Latasha Padgett Ordering Physician: Latasha Padgett Date of Service: 12/05/24 Procedure(s): ECG 12 lead Accession Number(s): [id number] cc: [facility] Test Date: 2024-12-05 Pat Name: ESTEFANIA CEDEÑO Department: Room: - Gender: Female Vascular Physician: : 1995 Requested By: 0923 Order Number: [id number] [place] MD: ANTON THORPE Measurements Intervals [place] Rate: 68 P: 55 WA: 116 QRS: 72 QRSD: 94 T: 14 QT: 411 QTc: 439 Interpretive Statements SINUS RHYTHM WITH SHORT WA INTERVAL NONSPECIFIC T-WAVE ABNORMALITY No previous ECG available for comparison Electronically Signed On 12-07-2024 9:00:49 EDT by ANTON THORPE Dictated By: Anton Thorpe M.D. Signed By: 12/07/2489912/07/24899 DD/ 6 TD/TT: Aquarist: [facility] ECG 12-LEADOrdered By: Radio logist Radiology on 12-07-2024 [facility] Work Phone: ALL CBC WITH AUTO DIFFon BASOPHILS ABSOLUTE AUTO 0 [facility] Basophils/100 WBC (Bld) 0.2 % 0.2 - 2.0 % [facility] Eosinophils/100 WBC (Bld) 0.6 % Low 0.9 - 7.0 % [facility] Erythrocyte distribution width (RBC) [Ratio] 13.7 % 11.0 - 15.0 % [facility] Hematocrit (Bld) [Volume fraction] 34.3 % Low 36.0 - 48.0 % [facility] Hemoglobin (Bld) [Mass/Vol] 11.5 g/dL Low 12.0 - 16.0 g/dL [facility] IMMATURE GRANULOCYTES ABS AUTO 0.08 High [facility] Immature granulocytes/100 WBC (Bld) 0.7 % High 0.0 - 0.5 % [facility] Interpretation and review of laboratory results Abnormal [facility] LYMPHOCYTES ABSOLUTE AUTO 2.1 [facility] Lymphocytes/100 WBC (Bld) 18.9 % Low 20.5 - 60.0 % [facility] MCH (RBC) [Entitic mass] 27.8 pg 26.7 - 34.0 pg [facility] MCHC (RBC) [Mass/Vol] 33.5 g/dL 29.9 - 35.2 g/dL [facility] MCV (RBC) [Entitic vol] 82.9 fL 81.0 - 99.0 fL [facility] MONOCYTES ABSOLUTE AUTO 0.5 [facility] Monocytes/100 WBC (Bld) 4 % 1.7 - 12.0 % [facility] NEUTROPHILS ABSOLUTE AUTO 8.6 High [facility] Neutrophils/100 WBC (Bld) 75.6 % High 43.0 - 75.0 % [facility] Platelet mean volume (Bld) [Entitic vol] 11.1 fL 9.5 - 13.5 fL [facility] EO # 0.1 [facility] PLT 140 Low [facility] RBC 4.14 Low [facility] WBC 11.3 High [facility] ECG 12-LEADon 12-05-2024 Radiology Study observation (narrative) [facility] Urinalysis macro (dipstick) panel (U)on 11-22-2024 Bilirubin, UA Negative Negative - 4(70) +++ mg/dL [facility] Blood, UA Negative Negative - 50 Chuy/mcL [facility] Clarity, UA Clear [facility] Color, UA Yellow [facility] Glucose, UA Negative Negative - 2000(110) ++++ mg/dL [facility] Interpretation and review of laboratory results Abnormal [facility] Ketones, UA Positive Negative - 160(16) ++++ mg/dL [facility] Comment on above: trace Leukocytes, UA Negative Negative - 500+++ Sadi/mcL [facility] Nitrite, UA Negative Negative - Positive [facility] pH, UA 6.5 5 - 9 [facility] Protein, UA Negative Negative - 2000(20) ++++ mg/dL [facility] Spec Grav, UA 1.025 1 - 1.03 [facility] Urobilinogen, UA 0.2 0.2 - 12 mg/dL [facility] MHPT AFP, MATERNALon 10-30- 025 MHPT DETERMINED BY Ultrasound [facility] MHPT DUE DATE SEE NOTE [facility] Comment on above: Results for Estimate d Due Date: 03 06 25 MHPT FAMILY HISTORY No [facility] MHPT GESTAT AGE (EXACT) 20 wks, 0 days [facility] MHPT INS REQ MATERN DIAB No [facility] MHPT INTERPRETATION Screen Neg [facility] Comment on above: (NOTE) INTERPRETATION: SCREEN NEGATIVE for open spina bifida Neural Tube Defects (NTD) Negative Pre-Test Post-Test Cutoff Neural Tube Defects Risks 1:1030 < 1:56627 1:250 Comments: The risk of an open neural tube defect is less than the screening cut-off. This test was developed and its performance characteristics determined by [facility]. It has not been cleared or approved by the US Food and Drug Administration. This test was performed in a CLIA certified laboratory and is intended for clinical purposes. MHPT [age] [facility] MHPT MATERNAL RACE Nonblack [facility] MHPT MATERNAL WEIGHT 234.0 lbs. [facility] MHPT MOM FOR AFP 0.82 [facility] MHPT NUMBER OF FETUSES Sanchez NO [facility] MHPT PATIENT'S AFP 36 ng/mL [facility] MHPT SMOKING Unknown [facility] MHPT SPECIMEN See Note [facility] Comment on above: (NOTE) Initial sample Performed By: [facility] [address] [place] [address] Category Analyst: Pranay Rousseau MD, PhD CLIA Number: [id number] Original [facility]ing [facility]inalysis macro (dipstick) panel (U)on 10-25-2024 Bilirubin, UA Negative Negative - 4(70) +++ mg/dL [facility] Blood, UA Negative Negative - 50 Chuy/mcL [facility] Clarity, UA Clear [facility] Color, UA Yellow [facility] Glucose, UA Negative Negative - 2000(110) ++++ mg/dL [facility] Interpretation and review of laboratory results Normal [facility] Ketones, UA Negative Negative - 160(16) ++++ mg/dL [facility] Leukocytes, UA Negative Negative - 500+++ Sadi/mcL [facility] Nitrite, UA Negative Negative - Positive [facility] pH, UA 5.5 5 - 9 [facility] Protein, UA Negative Negative - 2000(20) ++++ mg/dL [facility] Spec Grav, UA 1.03 1 - 1.03 [facility] Urobilinogen, UA 0.2 0.2 - 12 mg/dL [facility] AFP, Maternalon 10-20-2024 Determined by Ultrasound [facility] Comment on above: Performed By: #### A AFPM #### [facility] [address] [place] [address] Director Independent: Dallas Xiong MD Due Date SEE NOTE [facility] Comment on above: Result Comment: Resu lts for Estimated Due Date: 03 06 25 Performed By: #### A AFPM #### [facility] [address] [place] [address] Director Independent: Dallas Xiong MD Family History No [facility] Comment on above: Performed By: #### A AFPM #### [facility] [address] [place] [address] Director Independent: Dallas Xiong MD Gestat Age (exact) 20 wks, 0 days Normal [facility] Comment on above: Performed By: #### A AFPM #### [facility] [address] [place] [address] Director Independent: Dallas Xiong MD Ins Req Matern Diab [facility] Comment on above: Performed By: #### A AFPM #### [facility] [address] [place] [address] Director Independent: Dallas Xiong MD Interpretation Screen Neg Normal [facility] Comment on above: Result Comment: (NOT E) INTERPRETATION: SCREEN NEGATIVE for open spina bifida Neural Tube Defects (NTD) Negative Pre-Test Post-Test Cutoff Neural Tube Defects Risks 1:1030 < 1:86045 1:250 Comments: The risk of an open neural tube defect is less than the screening cut-off. This test was developed and its performance characteristics determined by [facility]. It has not been cleared or approved by the US Food and Drug Administration. This test was performed in a CLIA certified laboratory and is intended for clinical purposes. Performed By: #### A AFPM #### [facility] [address] [place] [address] Director Independent: Dallas Xiong MD [age] [facility] Comment on above: Performed By: #### A AFPM #### [facility] [address] [place] [address] Director Independent: Dallas Xiong MD Maternal Race Nonblack [facility] Comment on above: Performed By: #### A AFPM #### [facility] [address] [place] [address] Director Independent: Dallas Xiong MD Maternal Weight 234.0 lbs. [facility] Comment on above: Performed By: #### A AFPM #### [facility] [address] [place] [address] Director Independent: Dallas Xiong MD MoM for AFP 0.82 [facility] Comment on above: Performed By: #### A AFPM #### [facility] [address] [place] [address] Director Independent: Dallas Xiong MD Number of Fetuses Sanchez [facility] Comment on above: Performed By: #### A AFPM #### [facility] [address] [place] [address] Director Independent: Dallas Xiong MD Patient's AFP 36 ng/mL [facility] Comment on above: Performed By: #### A AFPM #### [facility] [address] [place] [address] Director Independent: Dallas Xiong MD Smoking Unknown [facility] Comment on above: Performed By: #### A AFPM #### [facility] [address] [place] [address] Director Independent: Dallas Xiong MD Specimen See Note [facility] Comment on above: Result Comment: (NOT E) Initial sample Performed By: [facility] [address] [place] [address] Category Analyst: Pranay Rousseau MD, PhD CLIA Number: [id number] Performed By: #### A AFPM #### [facility] [address] [place] [address] Director Independent: Dallas Xiong MD IGP,APTIMA HPV,AGE GDLNon AGE GDLN ACOG TESTING Note . [facility] Comment on above: TESTS RESULT FLAG UN ITS REF RANGE LAB Clinician Provided Cytology Information Other.............. No. of containers..01 ThinPrep Vial Age Susan Iniguez... FLAG LEGEND: L-Low Normal,H-High Normal,LL-Alert Low,HH-Alert High <-Panic Low,>-Panic High,A-Abnormal,AA-Critical Abnormal Performed at: 01 [facility] [address] [place] [address] Lynda Almaguer MD, IGP, RFX APTIMA HPV ASCU Note . [facility] Comment on above: TESTS RESULT FLAG UN ITS REF RANGE LAB DIAGNOSIS: 02 NEGATIVE FOR INTRAEPITHELIAL LESION OR MALIGNANCY. FUNGAL ORGANISMS MORPHOLOGICALLY CONSISTENT WITH MARTHA SPECIES ARE PRESENT. CELLULAR CHANGES ASSOCIATED WITH INFLAMMATION ARE PRESENT. Specimen adequacy: 02 Satisfactory for evaluation. Endocervical and/or squamous metaplastic cells (endocervical component) are present. Performed by: [facility] Physician . 02 Note: Note 02 The Pap [...] <-Panic Low,>-Panic High,A-Abnormal,AA-Critical Abnormal Performed at: [address] [address] Lynda Almaguer MD, Performed at: =[facility] [id number] Director Independent: Lynda Almaguer MD, Phone: [phone] Performed at: [address] [id number] Director Independent: Lynda Almaguer MD, Phone: [phone] BRUSH-SPATULA BRUSH-ALONE 2 [facility] US OB 14+ WEEKS ANATOMY SCAN on [...] II, MD, PHD at 25-Oct-2024 11:18:35 PM [facility] Normal Not Available Comment on above: Order Comment: US OB ANATOMY SINGLE W US OB CERVICAL LENGTH Estimated Date of Delivery: 03/06/25 Gestational Age as of 09/26/2024: 17w0d Urinalysis macro (dipstick) panel (U)on 09-26-2024 Bilirubin, UA Negative Negative - 4(70) +++ mg/dL [facility] Blood, UA Negative Negative - 50 Chuy/mcL [facility] Clarity, UA Clear [facility] Color, UA Yellow [facility] Glucose, UA Negative Negative - 2000(110) ++++ mg/dL [facility] Interpretation and review of laboratory results Normal [facility] Ketones, UA Positive Negative - 160(16) ++++ mg/dL [facility] Leukocytes, UA Negative Negative - 500+++ Sadi/mcL [facility] Nitrite, UA Negative Negative - Positive [facility] pH, UA 7 5 - 9 [facility] Protein, UA Negative Negative - 1999(20) ++++ mg/dL [facility] Spec Grav, UA 1.02 1 - 1.03 [facility] Urobilinogen, UA 0.2 0.2 - 12 mg/dL [facility] Urinalysis macro (dipstick) panel (U)on 08-29-2024 Bilirubin, UA Negative Negative - 4(70) +++ mg/dL [facility] Blood, UA Positive Negative - 50 Chuy/mcL [facility] Comment on above: trace-intact Clarity, UA Clear [facility] Color, UA Yellow [facility] Glucose, UA Negative Negative - 1999(110) ++++ mg/dL [facility] Interpretation and review of laboratory results Abnormal [facility] Ketones, UA Negative Negative - 160(16) ++++ mg/dL [facility] Leukocytes, UA Negative Negative - 500+++ Sadi/mcL [facility] Nitrite, UA Negative Negative - Positive [facility] pH, UA 7 5 - 9 [facility] Protein, UA Negative Negative - 1999(20) ++++ mg/dL [facility] Spec Grav, UA 1.025 1 - 1.03 [facility] Urobilinogen, UA 0.2 0.2 - 12 mg/dL [facility] US OB TRANSVAGINALon 025 US OB [...] II, MD, PHD at 05-Aug-2024 09:13:53 AM [facility] [employer] Normal Not Available Comment on above: Order Comment: US OB TRANSVAGINAL No LMP recorded. [facility] PREG QUANT HCGon 025 HCG QUANTITATIVE 55111 mIU/mL [facility] Comment on above: 5-50 0.2-1 WEEK 50-500 1-2 WEEKS 100-5,000 2-3 WEEKS 500-10,000 3-4 WEEKS 1,000-50,000 4-5 WEEKS 10,000-100,000 5-6 WEEKS 15,000-200,000 6-8 WEEKS 10,000-100,000 2-3 MONTHS [facility] PREG QUANT HCGon 025 HCG QUANTITATIVE 45782 mIU/mL [facility] Comment on above: 5-50 0.2-1 WEEK 50-500 1-2 WEEKS 100-5,000 2-3 WEEKS 500-10,000 3-4 WEEKS 1,000-50,000 4-5 WEEKS 10,000-100,000 5-6 WEEKS 15,000-200,000 6-8 WEEKS 10,000-100,000 2-3 [facility] Urinalysis macro (dipstick) panel (U)on 07-15-2023 Bilirubin, UA Negative Negative - 4(70) +++ mg/dL [facility] Blood, UA Negative Negative - 50 Chuy/mcL [facility] Clarity, UA Clear [facility] Color, UA Yellow [facility] Glucose, UA Negative Negative - 2000(110) ++++ mg/dL [facility] Interpretation and review of laboratory results Normal [facility] Ketones, UA Positive Negative - 160(16) ++++ mg/dL [facility] Leukocytes, UA Negative Negative - 500+++ Sadi/mcL [facility] Nitrite, UA Negative Negative - Positive [facility] pH, UA 6.5 5 - 9 [facility] Protein, UA Negative Negative - 1999(20) ++++ mg/dL [facility] Spec Grav, UA 1.025 1 - 1.03 [facility] Urobilinogen, UA 0.2 0.2 - 12 mg/dL [facility] C-Reactive Proteinon 022 CRP [Mass/Vol] mg/L 0 - 5 mg/L [facility] CBC with Auto Differentialon 12-16-2021 Absolute Eos # 0.09 KAYCEE [facility] Absolute Immature Granulocyte 0.04 [facility] Absolute Lymph # 2.98 [facility] Absolute [place] # 0.51 [facility] Basophils (Bld) [#/Vol] 0.04 10*3/uL [facility] Basophils/100 WBC (Bld) 0 % 0 - 2 % [facility] Eosinophils/100 WBC (Bld) 1 % 1 - 4 % [facility] Hematocrit (Bld) [Volume fraction] 39.6 % 36.3 - 47.1 % [facility] Hemoglobin (Bld) [Mass/Vol] 13.1 g/dL 11.9 - 15.1 g/dL [facility] Immature granulocytes/100 WBC (Bld) 0 % 0 [facility] Lymphocytes/100 WBC (Bld) 33 % 24 - 43 % [facility] MCH (RBC) [Entitic mass] 28.2 pg 25.2 - 33.5 pg [facility] MCHC (RBC) [Mass/Vol] 33.1 g/dL 28.4 - 34.8 g/dL [facility] MCV (RBC) [Entitic vol] 85.3 fL 82.6 - 102.9 fL [facility] Monocytes/100 WBC (Bld) 6 % 3 - 12 % [facility] NRBC Automated 0.0 0.0 per 100 WBC [facility] Platelet distribution width (Bld) [Ratio] 12.0 % 11.8 - 14.4 % [facility] Platelet mean volume (Bld) [Entitic vol] 11.1 fL 8.1 - 13.5 fL [facility] [employer] Platelets (Bld) [#/Vol] 214 10*3/uL [facility] RBC (Bld) [#/Vol] 4.64 10*6/uL 3.95 - 5.1 1 m/uL [facility] [employer] Segmented neutrophils/100 WBC (Bld) 60 % 36 - 65 % [facility] [employer] Segs Absolute 5.49 [facility] WBC (Bld) [#/Vol] 9.2 10*3/uL [facility] [place] [employer] Rheumatoid Factoron 12-17-19 22 Rheumatoid Factor <10 [facility] [place] [employer] Sedimentation Rateon 022 Sed Rate 5 [facility] Peer[employer] Uric Acidon 12-16-2021 Urate [Mass/Vol] 4.2 mg/dL 2.4 - 5.7 mg/dL [facility] Peer[facility] Basic Metabolic Panel w/ Ref yossi to MGOrdered By: Donny Hatfield on 10-15-2020 Anion gap [Moles/Vol] 13 mmol/L 9 - 17 mmol/L [employer] Work Phone: Calcium [Mass/Vol] 9.6 mg/dL 8.6 - 10. 4 mg/dL [employer] Phone: Chloride [Moles/Vol] 105 mmol/L 98 - 10 7 mmol/L [employer] Work Phone: CO2 [Moles/Vol] 22 mmol/L 20 - 31 mmol/L [employer] Phone: Creatinine [Mass/Vol] 0.62 mg/dL 0.50 - 0.90 mg/dL [employer] Phone: GFR >60 >60 mL/min L-3 [employer] Work Phone: GFR Non- >60 >60 mL/min [employer] Phone: Glucose [Mass/Vol] 110 mg/dL High 70 - 99 mg/dL [facility] [employer] Phone: Interpretation and review of laboratory results Abnormal [employer] Phone: Potassium [Moles/Vol] 3.5 mmol/L Low 3.7 - 5.3 mmol/L [employer] Phone: Sodium [Moles/Vol] 140 mmol/L 135 - 144 mmol/L [employer] Phone: Urea nitrogen (BldV) [Mass/Vol] 12 mg/dL 6 - 20 mg/dL [employer] Phone: Urea nitrogen/Creatinine (Bld) [Mass ratio] 19 [employer] Phone: [facility] [employer] Phone: CBC Auto DifferentialOrdered By: Donny Hatfield on 10-15-2020 Absolute Eos # 0.19 [employer] [facility] Work Phone: Absolute Immature Granulocyte 0.06 [employer] Work Phone: Absolute Lymph # 2.50 [employer] [facility] Work Phone: Absolute [place] # 0.75 [employer] [facility] Work Phone: Basophils (Bld) [#/Vol] 0.04 10*3/uL [employer] Work Phone: Basophils/100 WBC (Bld) 0 % 0 - 2 % [employer] Work Phone: Differential Type NOT REPORTED [employer] Phone: Eosinophils/100 WBC (Bld) 1 % 1 - 4 % [employer] Phone: Hematocrit (Bld) [Volume fraction] 42.1 % 36.3 - 47.1 % [employer] Phone: Hemoglobin.gastrointes tinal spec 1 Ql (Stl) 14.0 g/dL 11.9 - 15.1 g/dL [employer] Phone: Immature granulocytes/100 WBC (Bld) 0 % 0 [employer] Phone: Interpretation and review of laboratory results Abnormal [employer] Phone: Lymphocytes/100 WBC (Bld) 14 % Low 24 - 43 % [employer] Phone: MCH (RBC) [Entitic mass] 28.1 pg 25.2 - 33.5 pg [employer] Phone: MCHC (RBC) [Mass/Vol] 33.3 g/dL 28.4 - 34.8 g/dL [employer] Phone: MCV (RBC) [Entitic vol] 84.4 fL 82.6 - 102.9 fL [employer] Phone: Monocytes/100 WBC (Bld) 4 % 3 - 12 % [employer] Phone: NRBC Automated 0.0 0.0 per 100 WBC [employer] Phone: Platelet distribution width (Bld) [Ratio] 11.9 % 11.8 - 14.4 % [employer] Phone: Platelet Estimate NOT REPORTED [employer] Phone: Platelet mean volume (Bld) [Entitic vol] 10.7 fL 8.1 - 13.5 fL [employer] Phone: Platelets (Bld) [#/Vol] 220 10*3/uL [employer] Phone: RBC (Bld) [#/Vol] 4.99 10*6/uL 3.95 - 5.1 1 m/uL [employer] Phone: RBC (Bld) [#/Vol] NOT REPORTED [employer] Phone: Segmented neutrophils/100 WBC (Bld) 81 % High 36 - 65 % [employer] Phone: Segs Absolute 14.20 High [employer] Work Phone: WBC (Bld) [#/Vol] 17.7 10*3/uL [employer] Work Phone: WBC (Bld) [#/Vol] NOT REPORTED [facility] [employer] Phone: [employer] Phone: CT ABDOMEN PELVIS W IV CONTR AST Additional Contrast? NoneOrdered By: Donny Hatfield on 10-15-2020 1. Marked hepatic steatosis. 2. Hepatomegaly. 3. Mild colonic diverticulosis without evidence of diverticulitis. [employer] Phone: EXAMINATION: CT OF T HE ABDOMEN [...] COMPARISON: None. HISTORY: ORDERING SYSTEM PROVIDED HISTORY: [facility] pain TECHNOLOGIST PROVIDED HISTORY: [facility] pain Decision Support Exception - [...] subcutaneous soft tissues are unremarkable in appearance. [employer] Phone: Jean Marie, Mhpn Incoming Radiant Results From [employer] Information - 10/15/2020 1:48 AM EDT EXAMINATION: CT [...] PROVIDED HISTORY: abd pain TECHNOLOGIST PROVIDED HISTORY: [facility] pain Decision Support Exception - [...] Mild colonic diverticulosis without evidence of diverticulitis. [employer] Phone: [employer] Phone: HCG Qualitative, SerumOrdere d By: Donny Hatfield on 10-15-2020 hCG Qual Negative NEGATIVE [employer] Phone: Comment on above: Specimens with hCG l evels near the threshold of the test (25 mIU/mL) may give a negative or indeterminate result. In such cases, another test should be performed with a new specimen in 48-72 hours. If early is suspected clinically in this setting, correlation with quantitative serum b-hCG level is suggested. [employer] has confirmed the use of plasma for this test. This has not been cleared or approved by the U.S. Food and Drug Administration. The FDA has determined that such clearance is not necessary. [employer] Phone: Hepatic Function PanelOrdere d By: Donny Hatfield on 10-15-2020 Albumin [Mass/Vol] 4.6 g/dL 3.5 - 5.2 g/dL [employer] Phone: Albumin/Globulin [Mass ratio] 1.6 {ratio} [employer] Phone: ALP (Bld) [Catalytic activity/Vol] 59 U/L 35 - 104 U/L [employer] Phone: ALT [Catalytic activity/Vol] 38 U/L High 5 - 33 U/L [employer] Phone: AST [Catalytic activity/Vol] 24 U/L <32 [employer] Phone: Bilirubin [Mass/Vol] 0.48 mg/dL 0.3 - 1 .2 mg/dL [employer] Phone: Bilirubin, Indirect CANNOT BE CALCULATED 0.00 - 1.00 mg/dL [employer] Phone: Bilirubin.indirect [Mass/Vol] mg/dL <0.31 mg/dL [employer] Phone: Free PSA/Total PSA [Mass fraction] 7.4 g/dL 6.4 - 8.3 g/dL [employer] Phone: Globulin NOT REPORTED 1.5 - 3.8 g/dL [employer] Phone: Interpretation and review of laboratory results Abnormal [employer] Phone: Laboratory - Chemistry and C hemistry - challengeOrdered By: Donny Hatfield on 10-15-2020 GFR/1.73 sq M.predicted MDRD (S/P/Bld) [Vol rate/Area] [employer] Phone: Comment on above: Average GFR for 20-2 9 years old: 116 mL/min/1.73sq m Chronic Kidney Disease: <60 mL/min/1.73sq m Kidney failure: <15 mL/min/1.73sq m eGFR calculated using average adult body mass. Additional eGFR calculator available at: http://www.[employer]/multiple_crcl_2012.htm Stage 1: Some kidney damage normal GFR Stage 2: Mild kidney damage GFR 60-89 Stage 3: Moderate kidney damage GFR 30-59 Stage 4: Severe kidney damage GFR 15-29 Stage 5: Severe kidney damage GFR <15 ESRD - chronic treatment by dialysis or transplant Lactic Acid, PlasmaOrdered B y: Donny Hatfield on 10-15-2020 Lactate [Moles/Vol] 1.1 mmol/L 0.5 - 2. 2 mmol/L [facility] [employer] Phone: Lactic Acid, Whole Blood NOT REPORTED 0.7 - 2.1 mmol/L [employer] Phone: [facility] [employer] Phone: LipaseOrdered By: Cuco on 10-15-2020 Lipase [Catalytic activity/Vol] 27 U/L 13 - 60 U/L [facility] [employer] Phone: MagnesiumOrdered By: Donny Hatfield on 10-15-2020 Magnesium [Mass/Vol] 1.8 mg/dL 1.6 - 2 .6 mg/dL [employer] Phone: [employer] Phone: Microscopic UrinalysisOrdere d By: Donny Hatfield on 10-15-2020 - [facility] Work Phone: Amorphous, UA NOT REPORTED None [facility] Work Phone: Bacteria, UA 1+ Abnormal None [facility] Work Phone: Casts UA NOT REPORTED /LPF [facility] Work Phone: Crystals, UA NOT REPORTED None /HPF [facility] Work Phone: Epithelial Cells UA 2 TO 5 [facility] Work Phone: Interpretation and review of laboratory results Abnormal [facility] Work Phone: Mucus, UA 1+ Abnormal None [facility] Work Phone: Other Observations UA NOT REPORTED NOT REQ. [facility] Work Phone: RBC, UA 2 TO 5 [facility] Work Phone: Renal Epithelial, UA NOT REPORTED 0 /HPF [facility] Work Phone: Trichomonas, UA NOT REPORTED None [facility] Work Phone: WBC, UA 0 TO 2 [facility] Work Phone: Yeast, UA NOT REPORTED None [facility] Work Phone: [facility] Work Phone: No Panel InformationOrdered By: Donny Hatfield on 10-15-2020 [facility] Work Phone: Urinalysis Reflex to Culture Ordered By: Donny Hatfield on 10-15-2020 Bilirubin Urine Negative NEGATIVE [facility] Work Phone: Color, UA YELLOW YELLOW [facility] Work Phone: Glucose, Ur Negative NEGATIVE [facility] Work Phone: Interpretation and review of laboratory results Abnormal [facility] Work Phone: Ketones Ql (U) Negative NEGATIVE [facility] [employer] Work Phone: Leukocyte esterase Test strip Ql (U) Negative NEGATIVE [facility] [employer] [employer] Work Phone: Nitrite, Urine Negative NEGATIVE [facility] [employer] Work Phone: pH, UA 5.0 [facility] [employer] Work Phone: Protein, UA Negative NEGATIVE [facility] [employer] Work Phone: Specific Leon, UA 1.010 [facility] [employer] Work Phone: Turbidity UA CLEAR CLEAR [facility] [employer] Work Phone: Urinalysis Comments NOT REPORTED [facility] [employer] Work Phone: Urine Hgb 2+ Abnormal NEGATIVE [facility] [employer] Work Phone: Urobilinogen, Urine Normal Normal [facility] [employer] Work Phone: [facility] [employer] Work Phone: Comp Metabolic Profon 2020 (cont.) Normal [facility] Comment on above: Result Comment: Aver age GFR for 20-29 years old: 116 mL/min/1.73sq m Chronic Kidney Disease: <60 mL/min/1.73sq m Kidney failure: <15 mL/min/1.73sq m eGFR calculated using average adult body mass. Additional eGFR calculator available at: http://www.Keukey.Crazidea/multiple_crcl_2011.htm Performed By: #### L IPRF, CDP, CP, TSHX #### [employer] [address] [place] [address] Director Independent: Chato Aguirre MD Albumin [Mass/Vol] 4.3 g/dL Normal 3.5-5.2 [facility] Comment on above: Performed By: #### L IPRF, CDP, CP, TSHX #### [employer] [address] [place] [address] Director Independent: Chato Aguirre MD Albumin/Glob Ratio 1.3 Normal 1.0-2.5 [facility] Comment on above: Performed By: #### L IPRF, CDP, CP, TSHX #### [address] [address] Director Independent: Chato Aguirre MD Alkaline Phos 49 U/L Normal 35-104 [facility] Comment on above: Performed By: #### L IPRF, CDP, CP, TSHX #### [address] [address] Director Independent: Chato Aguirre MD ALT [Catalytic activity/Vol] 36 U/L High 5-33 [facility] Comment on above: Performed By: #### L IPRF, CDP, CP, TSHX #### [address] [address] Director Independent: Chato Aguirre MD Anion gap [Moles/Vol] 11 mmol/L Normal 9-17 [facility] Comment on above: Performed By: #### L IPRF, CDP, CP, TSHX #### [address] [address] Director Independent: Chato Aguirre MD AST [Catalytic activity/Vol] 27 U/L Normal <32 [facility] Comment on above: Performed By: #### L IPRF, CDP, CP, TSHX #### [facility] [employer] [address] [place] [address] Director Independent: Chato Aguirre MD Bilirubin [Mass/Vol] 0.34 mg/dL Normal 0.3-1.2 [facility] Comment on above: Performed By: #### L IPRF, CDP, CP, TSHX #### [facility] [employer] [address] [place] [address] Director Independent: Chato Aguirre MD Calcium [Mass/Vol] 9.5 mg/dL Normal 8.6-10.4 [facility] Comment on above: Performed By: #### L IPRF, CDP, CP, TSHX #### [facility] [employer] [address] [place] [address] Director Independent: Chato Aguirre MD Chloride [Moles/Vol] 102 mmol/L Normal 98-107 [facility] Comment on above: Performed By: #### L IPRF, CDP, CP, TSHX #### [facility] [employer] [address] [place] [address] Director Independent: Chato Aguirre MD CO2 [Moles/Vol] 22 mmol/L Normal 20-31 [facility] Comment on above: Performed By: #### L IPRF, CDP, CP, TSHX #### [address] [address] Director Independent: Chato Aguirre MD Creatinine [Mass/Vol] 0.46 mg/dL Low 0.50-0.90 [facility] Comment on above: Performed By: #### L IPRF, CDP, CP, TSHX #### [facility] [employer] [address] [place] [address] Director Independent: Chato Aguirre MD GFR, Amer >60 Normal >60 [facility] Comment on above: Performed By: #### L IPRF, CDP, CP, TSHX #### [facility] [employer] [address] [place] [address] Director Independent: Chato Aguirre MD GFR,non Amer >60 Normal >60 [facility] Comment on above: Performed By: #### L IPRF, CDP, CP, TSHX #### [facility] [employer] [address] [place] [address] Director Independent: Chato Aguirre MD Glucose [Mass/Vol] 92 mg/dL Normal 70-99 [facility] Comment on above: Performed By: #### L IPRF, CDP, CP, TSHX #### [facility] [address] [place] [address] Director Independent: Chato Aguirre MD Potassium [Moles/Vol] 4.2 mmol/L Normal 3.7-5.3 [facility] Comment on above: Performed By: #### L IPRF, CDP, CP, TSHX #### [facility] [employer] [address] [place] [address] Director Independent: Chato Aguirre MD Protein [Mass/Vol] 7.5 g/dL Normal 6.4-8.3 [facility] Comment on above: Performed By: #### L IPRF, CDP, CP, TSHX #### [facility] [employer] [address] [place] [address] Director Independent: Chato Aguirre MD Sodium [Moles/Vol] 135 mmol/L Normal 135-144 [facility] Comment on above: Performed By: #### L IPRF, CDP, CP, TSHX #### [facility] [employer] [address] [place] [address] Director Independent: Chato Aguirre MD Urea nitrogen [Mass/Vol] 11 mg/dL Normal 6-20 [facility] Comment on above: Performed By: #### L IPRF, CDP, CP, TSHX #### [facility] [employer] [address] [place] [address] Director Independent: Chato Aguirre MD Lipid Prof, Fastingon 2020 Cholesterol [Mass/Vol] 186 mg/dL Normal <200 [facility] Comment on above: Result Comment: Cholesterol Guidelines: <200 Desirable 200-240 Borderline >240 Undesirable Performed By: #### L IPRF, CDP, CP, TSHX #### [facility] [employer] [address] [place] [address] Director Independent: Chato Aguirre MD Cholesterol in HDL [Mass/Vol] 49 mg/dL Normal >40 [facility] Comment on above: Result Comment: HDL Guidelines: <40 Undesirable 40-59 Borderline >59 Desirable Performed By: #### L IPRF, CDP, CP, TSHX #### [employer] [address] [place] [address] Director Independent: Chato Aguirre MD Cholesterol in LDL [Mass/Vol] 102 mg/dL Normal 0-130 [facility] Comment on above: Result Comment: LDL Guidelines: <100 Desirable 100-129 Near to/above Desirable 130-159 Borderline >159 Undesirable Direct (measured) LDL and calculated LDL are not interchangeable tests. Performed By: #### L IPRF, CDP, CP, TSHX #### [employer] [address] [place] [address] Director Independent: Chato Aguirre MD Cholesterol.total/Chol esterol in HDL [Mass ratio] 3.8 {ratio} Normal <5 [facility] Comment on above: Performed By: #### L IPRF, CDP, CP, TSHX #### [employer] [address] [place] [address] Director Independent: Chato Aguirre MD Triglyceride,Fasting 173 mg/dL High <150 [facility] Comment on above: Result Comment: Triglyceride Guidelines: <150 Desirable 150-199 Borderline 200-499 High >499 Very high Based on AHA Guidelines for fasting triglyceride, February 2012. Performed By: #### L IPRF, CDP, CP, TSHX #### [employer] [address] [place] [address] Director Independent: Chato Aguirre MD TSH w/reflex to FT4on 2020 TSH Qn 3.38 m[IU]/L Normal 0.30-5.00 [facility] Comment on above: Performed By: #### L IPRF, CDP, CP, TSHX #### [employer] [address] [place] [address] [id number] Director Independent: Chato Aguirre MD CBC Auto DifferentialOrdered By: Miguel Holley on 09-23-2020 [employer] # 0.14 [employer] [facility] Work Phone: Absolute Immature Granulocyte <0.03 [employer] Work Phone: Absolute Lymph # 2.71 [employer] [facility] Work Phone: Absolute [place] # 0.48 [employer] [facility] Work Phone: Basophils (Bld) [#/Vol] 0.05 10*3/uL [employer] Work Phone: Basophils/100 WBC (Bld) 1 % 0 - 2 % [employer] Phone: Differential Type NOT REPORTED [employer] Phone: Eosinophils/100 WBC (Bld) 2 % 1 - 4 % [employer] Phone: Hematocrit (Bld) [Volume fraction] 42.9 % 36.3 - 47.1 % [employer] Phone: Hemoglobin.gastrointes tinal spec 1 Ql (Stl) 13.5 g/dL 11.9 - 15.1 g/dL [employer] Phone: Immature granulocytes/100 WBC (Bld) 0 % 0 [employer] Phone: Lymphocytes/100 WBC (Bld) 30 % 24 - 43 % [employer] Phone: MCH (RBC) [Entitic mass] 27.6 pg 25.2 - 33.5 pg [employer] Phone: MCHC (RBC) [Mass/Vol] 31.5 g/dL 28.4 - 34.8 g/dL [employer] Phone: MCV (RBC) [Entitic vol] 87.6 fL 82.6 - 102.9 fL [employer] Phone: Monocytes/100 WBC (Bld) 5 % 3 - 12 % [employer] Work Phone: NRBC Automated 0.0 0.0 per 100 WBC [employer] Phone: Platelet distribution width (Bld) [Ratio] 12.4 % 11.8 - 14.4 % [employer] Phone: Platelet Estimate NOT REPORTED [employer] Phone: Platelet mean volume (Bld) [Entitic vol] 11.6 fL 8.1 - 13.5 fL [employer] Phone: Platelets (Bld) [#/Vol] 246 10*3/uL [employer] Phone: RBC (Bld) [#/Vol] 4.90 10*6/uL 3.95 - 5.1 1 m/uL [employer] Phone: RBC (Bld) [#/Vol] NOT REPORTED [employer] Phone: Segmented neutrophils/100 WBC (Bld) 62 % 36 - 65 % [employer] Phone: Segs [employer] 5.79 [employer] Work Phone: WBC (Bld) [#/Vol] 9.2 10*3/uL [employer] Phone: WBC (Bld) [#/Vol] NOT REPORTED [employer] Phone: CBC with Diffon 09-23-2020 Abs. Basophil 0.05 k/uL Normal 0.00-0.20 [facility] Comment on above: Performed By: #### L IPRF, CDP, CP, TSHX #### [employer] [address] [place] [id number] Director Independent: Chato Aguirre MD Abs.Imm.Granulocyte <0.03 Normal 0.00-0.30 [facility] Comment on above: Performed By: #### L IPRF, CDP, CP, TSHX #### [facility] [address] [place] [address] Director Independent: Chato Aguirre MD Abs.Neutrophil (Seg) 5.79 k/uL Normal 1.50-8.10 [facility] Comment on above: Performed By: #### L IPRF, CDP, CP, TSHX #### [address] [address] Director Independent: Chato Aguirre MD Basophils/100 WBC (Bld) 1 % Normal 0-2 [facility] Comment on above: Performed By: #### L IPRF, CDP, CP, TSHX #### [facility] [employer] [address] [place] [address] Director Independent: Chato Aguirre MD Eosinophils (Bld) [#/Vol] 0.14 10*3/uL Normal 0.00-0.44 [facility] Comment on above: Performed By: #### L IPRF, CDP, CP, TSHX #### [facility] [employer] [address] [place] [address] Director Independent: Chato Aguirre MD Eosinophils/100 WBC (Bld) 2 % Normal 1-4 [facility] Comment on above: Performed By: #### L IPRF, CDP, CP, TSHX #### [facility] [employer] [address] [place] [address] Director Independent: Chato Aguirre MD Erythrocyte distribution width (RBC) [Ratio] 12.4 % Normal 11.8-14.4 [facility] Comment on above: Performed By: #### L IPRF, CDP, CP, TSHX #### [facility] [employer] [address] [place] [address] Director Independent: Chato Aguirre MD Hematocrit (Bld) [Volume fraction] 42.9 % Normal 36.3-47.1 [facility] Comment on above: Performed By: #### L IPRF, CDP, CP, TSHX #### [address] [address] Director Independent: Chato Aguirre MD Hemoglobin (Bld) [Mass/Vol] 13.5 g/dL Normal 11.9-15.1 [facility] Comment on above: Performed By: #### L IPRF, CDP, CP, TSHX #### [address] [address] Director Independent: Chato Aguirre MD Immature granulocytes/100 WBC (Bld) 0 % Normal 0 [facility] Comment on above: Performed By: #### L IPRF, CDP, CP, TSHX #### [address] [address] Director Independent: Chato Aguirre MD Lymphocytes (Bld) [#/Vol] 2.71 10*3/uL Normal 1.10-3.70 [facility] Comment on above: Performed By: #### L IPRF, CDP, CP, TSHX #### [place] [address] Director Independent: Chato Aguirre MD Lymphocytes/100 WBC (Bld) 30 % Normal 24-43 [facility] Comment on above: Performed By: #### L IPRF, CDP, CP, TSHX #### [address] [address] Director Independent: Chato Aguirre MD MCH (RBC) [Entitic mass] 27.6 pg Normal 25.2-33.5 [facility] Comment on above: Performed By: #### L IPRF, CDP, CP, TSHX #### [address] [address] Director Independent: Chato Aguirre MD MCHC (RBC) [Mass/Vol] 31.5 g/dL Normal 28.4-34.8 [facility] Comment on above: Performed By: #### L IPRF, CDP, CP, TSHX #### [address] [address] Director Independent: Chato Aguirre MD MCV (RBC) [Entitic vol] 87.6 fL Normal 82.6-102.9 [facility] Comment on above: Performed By: #### L IPRF, CDP, CP, TSHX #### [place] [address] Director Independent: Chato Aguirre MD Monocytes (Bld) [#/Vol] 0.48 10*3/uL Normal 0.10-1.20 [facility] Comment on above: Performed By: #### L IPRF, CDP, CP, TSHX #### [place] [address] Director Independent: Chato Aguirre MD Monocytes/100 WBC (Bld) 5 % Normal 3-12 [facility] Comment on above: Performed By: #### L IPRF, CDP, CP, TSHX #### [address] [address] Director Independent: Chato Aguirre MD Neutrophil (Seg) 62 % Normal 36-65 [facility] Comment on above: Performed By: #### L IPRF, CDP, CP, TSHX #### [place] [address] Director Independent: Chato Aguirre MD NRBC Automated 0.0 per 100 WBC Normal 0.0 [facility] Comment on above: Performed By: #### L IPRF, CDP, CP, TSHX #### [address] [address] Director Independent: Chato Aguirre MD Platelet mean volume (Bld) [Entitic vol] 11.6 fL Normal 8.1-13.5 [facility] Comment on above: Performed By: #### L IPRF, CDP, CP, TSHX #### [address] [address] Director Independent: Chato Aguirre MD Platelets (Bld) [#/Vol] 246 10*3/uL Normal 138-453 [facility] Comment on above: Performed By: #### L IPRF, CDP, CP, TSHX #### [address] [address] Director Independent: Chato Aguirre MD RBC (Bld) [#/Vol] 4.90 10*6/uL Normal 3.95-5.11 [facility] Comment on above: Performed By: #### L IPRF, CDP, CP, TSHX #### [address] [address] Director Independent: Chato Aguirre MD WBC (Bld) [#/Vol] 9.2 10*3/uL Normal 3.5-11.3 [facility] Comment on above: Performed By: #### L IPRF, CDP, CP, TSHX #### [address] [address] Director Independent: Chato Aguirre MD Auto Diff Performed NOT REPORTED Normal [facility] Comment on above: Performed By: #### L IPRF, CDP, CP, TSHX #### [address] [address] Director Independent: Chato Aguirre MD Platelet Estimate NOT REPORTED Normal [facility] Comment on above: Performed By: #### L IPRF, CDP, CP, TSHX #### [facility] [employer] [address] [place] [address] Director Independent: Chato Aguirre MD RBC morphology finding Nom (Bld) NOT REPORTED Normal [facility] Comment on above: Performed By: #### L IPRF, CDP, CP, TSHX #### [facility] [address] [place] [address] Director Independent: Chato Aguirre MD WBC Morphology NOT REPORTED Normal [facility] Comment on above: Performed By: #### L IPRF, CDP, CP, TSHX #### [facility] [address] [place] [address] Director Independent: Chato Aguirre MD Comp Metabolic Profon 2020 BUN/CRE Ratio NOT REPORTED Normal 02-17 [facility] Comment on above: Performed By: #### L IPRF, CDP, CP, TSHX #### [facility] [address] [place] [address] Director Independent: Chato Aguirre MD Staging: NOT REPORTED Normal [facility] Comment on above: Performed By: #### L IPRF, CDP, CP, TSHX #### [facility] [address] [place] [address] Director Independent: Chato Aguirre MD Comprehensive Metabolic Pane lOrdered By: Miguel Holley on 09-23-2020 Albumin [Mass/Vol] 4.3 g/dL 3.5 - 5.2 g/dL [employer] Phone: Albumin/Globulin [Mass ratio] 1.3 {ratio} [employer] Phone: ALP (Bld) [Catalytic activity/Vol] 49 U/L 35 - 104 U/L [employer] Phone: ALT [Catalytic activity/Vol] 36 U/L High 5 - 33 U/L [employer] Phone: Anion gap [Moles/Vol] 11 mmol/L 9 - 17 mmol/L [employer] Phone: AST [Catalytic activity/Vol] 27 U/L <32 [employer] Phone: Bilirubin [Mass/Vol] 0.34 mg/dL 0.3 - 1 .2 mg/dL [employer] Phone: Calcium [Mass/Vol] 9.5 mg/dL 8.6 - 10. 4 mg/dL [employer] Phone: Chloride [Moles/Vol] 102 mmol/L 98 - 10 7 mmol/L [employer] Phone: CO2 [Moles/Vol] 22 mmol/L 20 - 31 mmol/L [employer] Phone: Creatinine [Mass/Vol] 0.46 mg/dL Low 0.50 - 0.90 mg/dL [employer] Phone: Free PSA/Total PSA [Mass fraction] 7.5 g/dL 6.4 - 8.3 g/dL [employer] Phone: GFR >60 >60 mL/min [employer] Phone: GFR Non- >60 >60 mL/min [employer] Phone: GFR/1.73 sq M.predicted MDRD (S/P/Bld) [Vol rate/Area] [employer] Phone: Comment on above: Average GFR for 20-2 9 years old: 116 mL/min/1.73sq m Chronic Kidney Disease: <60 mL/min/1.73sq m Kidney failure: <15 mL/min/1.73sq m eGFR calculated using average adult body mass. Additional eGFR calculator available at: http://www.Keukey.Crazidea/multiple_crcl_2012.htm GFR/1.73 sq M.predicted MDRD (S/P/Bld) [Vol rate/Area] NOT REPORTED [employer] Phone: Glucose [Mass/Vol] 92 mg/dL 70 - 99 mg/dL [employer] Phone: Potassium [Moles/Vol] 4.2 mmol/L 3.7 - 5.3 mmol/L [employer] Phone: Sodium [Moles/Vol] 135 mmol/L 135 - 144 mmol/L [facility] [employer] Work Phone: Urea nitrogen (BldV) [Mass/Vol] 11 mg/dL 6 - 20 mg/dL [facility] Work Phone: Urea nitrogen/Creatinine (Bld) [Mass ratio] NOT REPORTED [facility] [employer] Work Phone: Laboratory - Chemistry and C hemistry - challengeOrdered By: Miguel Holley on 09-23-2020 Albumin [Mass/Vol] 4.3 g/dL (3.5-5.2 ) [facility] Work Phone: Comment on above: Note: Responsible Ob cafeteria server: [employer] (3003) ALT [Catalytic activity/Vol] 36 U/L High (5-33 ) [facility] Work Phone: Comment on above: Note: Responsible Ob cafeteria server: [employer] (3003) Anion gap [Moles/Vol] 11 mmol/L (9-17 ) [facility] Work Phone: Comment on above: Note: Responsible Ob cafeteria server: [employer] (3003) AST [Catalytic activity/Vol] 27 U/L (<32 ) [facility] Work Phone: Comment on above: Note: Responsible Ob cafeteria server: [employer] (3003) Bilirubin [Mass/Vol] 0.34 mg/dL (0.3-1.2 ) [facility] Work Phone: Comment on above: Note: Responsible Ob cafeteria server: [employer] (3003) Calcium [Mass/Vol] 9.5 mg/dL (8.6-10.4 ) [facility] Work Phone: Comment on above: Note: Responsible Ob cafeteria server: [employer] (3003) Chloride [Moles/Vol] 102 mmol/L (98-107 ) [facility] Work Phone: Comment on above: Note: Responsible Ob cafeteria server: [employer] (3003) Cholesterol [Mass/Vol] 186 mg/dL (<200 ) [facility] Work Phone: Comment on above: Note: Cholesterol Gu idelines:<200 [id number] Borderline>240 UndesirableResponsible Observer: [employer] (3003) Cholesterol.total/Chol esterol in HDL [Mass ratio] 3.8 {ratio} (<5 ) [facility] Work Phone: Comment on above: Note: Responsible Ob cafeteria server: [employer] (3003) CO2 [Moles/Vol] 22 mmol/L (20-31 ) [facility] Work Phone: Comment on above: Note: Responsible Ob cafeteria server: [employer] (3003) Creatinine [Mass/Vol] 0.46 mg/dL Low (0.50- 0.90 ) [facility] Work Phone: Comment on above: Note: Responsible Ob cafeteria server: [employer] (3003) Glucose [Mass/Vol] 92 mg/dL (70-99 ) [facility] Work Phone: Comment on above: Note: Responsible Ob cafeteria server: [employer] (3003) Magnesium [Mass/Vol] 49 mg/dL (>40 ) [facility] Work Phone: Comment on above: Note: HDL Guidelines :<40 [id number] Borderline>59 DesirableResponsible Observer: [employer] (3003) Magnesium [Mass/Vol] 102 mg/dL (0-130 ) [facility] Work Phone: Comment on above: Note: LDL Guidelines :<100 [id number] Near to/above [id number] Borderline>159 UndesirableDirect (measured) LDL and calculated LDL are not interchangeable tests.Responsible Observer: [employer] (3003) Magnesium [Mass/Vol] 173 mg/dL High (<150 ) [facility] Work Phone: Comment on above: Note: Triglyceride G uidelines:<150 [id number] High>499 Very highBased on AHA Guidelines for fasting triglyceride, February 2012.Responsible Observer: [employer] (3003) Potassium [Moles/Vol] 4.2 mmol/L (3.7-5.3 ) [facility] Work Phone: Comment on above: Note: Responsible Ob cafeteria server: [employer] (3003) Protein [Mass/Vol] 7.5 g/dL (6.4-8.3 ) [facility] Work Phone: Comment on above: Note: Responsible Ob cafeteria server: [employer] (3003) Sodium [Moles/Vol] 135 mmol/L (135-144 ) [facility] Work Phone: Comment on above: Note: Responsible Ob cafeteria server: [employer] (3003) Urea nitrogen [Mass/Vol] 11 mg/dL (6-20 ) [facility] Work Phone: Comment on above: Note: Responsible Ob cafeteria server: [employer] (3003) Laboratory - Hematology and Cell countsOrdered By: Miguel Holley on 09-23-2020 Basophils/100 WBC (Bld) 1 % (0-2 ) [facility] Work Phone: Comment on above: Note: Responsible Ob cafeteria server: [employer] (3018) Eosinophils (Bld) [#/Vol] 0.14 10*3/uL (0.00-0.44 ) [facility] Work Phone: Comment on above: Note: Responsible Ob cafeteria server: [employer] (3018) Eosinophils/100 WBC (Bld) 2 % (1-4 ) [facility] Work Phone: Comment on above: Note: Responsible Ob cafeteria server: [employer] (3018) Erythrocyte distribution width (RBC) [Ratio] 12.4 % (11.8-14.4 ) [facility] Work Phone: Comment on above: Note: Responsible Ob cafeteria server: [employer] (3018) Hematocrit (Bld) [Volume fraction] 42.9 % (36.3-47.1 ) [facility] Work Phone: Comment on above: Note: Responsible Ob cafeteria server: [employer] (3018) Hemoglobin (Bld) [Mass/Vol] 13.5 g/dL (11.9-15.1 ) [facility] Work Phone: Comment on above: Note: Responsible Ob cafeteria server: [employer] (3018) Immature granulocytes/100 WBC (Bld) 0 % (0 ) [facility] Work Phone: Comment on above: Note: Responsible Ob cafeteria server: [employer] (3018) Lymphocytes (Bld) [#/Vol] 2.71 10*3/uL (1.10-3.70 ) [facility] Work Phone: Comment on above: Note: Responsible Ob cafeteria server: [employer] (3018) Lymphocytes/100 WBC (Bld) 30 % (24-43 ) [facility] [facility] Work Phone: Comment on above: Note: Responsible Ob cafeteria server: XNV AUTOFILE (3018) MCH (RBC) [Entitic mass] 27.6 pg (25.2-33.5 ) [facility] Work Phone: Comment on above: Note: Responsible Ob cafeteria server: XNV AUTOFILE (3018) MCHC (RBC) [Mass/Vol] 31.5 g/dL (28.4- 34.8 ) [facility] Work Phone: Comment on above: Note: Responsible Ob cafeteria server: XNV AUTOFILE (3018) MCV (RBC) [Entitic vol] 87.6 fL (82.6-102.9 ) [facility] Work Phone: Comment on above: Note: Responsible Ob cafeteria server: XNV AUTOFILE (3018) Monocytes (Bld) [#/Vol] 0.48 10*3/uL (0.10-1.20 ) [facility] Work Phone: Comment on above: Note: Responsible Ob cafeteria server: XNV AUTOFILE (3018) Monocytes/100 WBC (Bld) 5 % (3-12 ) [facility] Work Phone: Comment on above: Note: Responsible Ob cafeteria server: XNV AUTOFILE (3018) Platelet mean volume (Bld) [Entitic vol] 11.6 fL (8.1-13.5 ) [facility] Work Phone: Comment on above: Note: Responsible Ob cafeteria server: XNV AUTOFILE (3018) Platelets (Bld) [#/Vol] 246 10*3/uL (138-453 ) [facility] Work Phone: Comment on above: Note: Responsible Ob cafeteria server: XNV AUTOFILE (3018) RBC (Bld) [#/Vol] 4.90 10*6/uL (3.95-5.11 ) [facility] Work Phone: Comment on above: Note: Responsible Ob cafeteria server: XNV AUTOFILE (3018) RBC morphology finding Nom (Bld) NOT REPORTED [facility] Work Phone: Segmented neutrophils/100 WBC (Bld) 62 % (36-65 ) [facility] Work Phone: Comment on above: Note: Responsible Ob cafeteria server: XNV AUTOFILE (3018) WBC (Bld) [#/Vol] 9.2 10*3/uL (3.5-11.3 ) [facility] Work Phone: Comment on above: Note: Responsible Ob cafeteria server: XNV AUTOFILE (3018) Lipid Prof, Fastingon 2020 Cholesterol,VLDL NOT REPORTED Normal 06-29 [facility] Comment on above: Performed By: #### L IPRF, CDP, CP, TSHX #### [facility] [address] [place] [address] Director Independent: Chato Aguirre MD Lipid, FastingOrdered By: Zandra Holley on 09-23-2020 Cholesterol [Mass/Vol] 186 mg/dL <200 [facility] Phone: Comment on above: Cholesterol Guidelines: <200 Desirable 200-240 Borderline >240 Undesirable Cholesterol in HDL [Mass/Vol] 49 mg/dL >40 [facility] Phone: Comment on above: HDL Guidelines: <40 Undesirable 40-59 Borderline >59 Desirable Cholesterol in LDL [Mass/Vol] 102 mg/dL 0 - 130 mg/dL [employer] Phone: Comment on above: LDL Guidelines: <100 Desirable 100-129 Near to/above Desirable 130-159 Borderline >159 Undesirable Direct (measured) LDL and calculated LDL are not interchangeable tests. Cholesterol in VLDL [Mass/Vol] NOT REPORTED High 1 - 30 mg/dL [facility] Phone: Cholesterol.total/Chol esterol in HDL [Mass ratio] 3.8 {ratio} <5 [facility] Phone: Triglyceride, Fasting 173 mg/dL High <150 [facility] [employer] Phone: Comment on above: Triglyceride Guidelines: <150 Desirable 150-199 Borderline 200-499 High >499 Very high Based on AHA Guidelines for fasting triglyceride, February 2012. No Panel InformationOrdered By: Miguel Holley on 09-23-2020 Interpretation and review of laboratory results Abnormal [facility] Phone: (cont.) See Note [facility] Work Phone: Comment on above: Note: Average GFR fo r 20-29 years old:116 mL/min/1.73sq mChronic Kidney Disease:<60 mL/min/1.73sq mKidney failure:<15 mL/min/1.73sq meGFR calculated using average adult body mass. Additional eGFR calculatoravailable at:http://www.Keukey.Crazidea/multiple_crcl_2011.htmResponsible Observer: CEEV AUTOFILE (3003) Abs. Basophil 0.05 k/uL (0.00-0.20 ) [facility] Work Phone: Comment on above: Note: Responsible Ob cafeteria server: XNV AUTOFILE (3018) Abs.Imm.Granulocyte <0.03 k/uL (0.00-0. 30 ) [facility] Work Phone: Comment on above: Note: Responsible Ob cafeteria server: XNV AUTOFILE (3018) Abs.Neutrophil (Seg) 5.79 k/uL (1.50-8 .10 ) [facility] Work Phone: Comment on above: Note: Responsible Ob cafeteria server: XNV AUTOFILE (3018) Albumin/Glob Ratio 1.3 (1.0-2.5 ) [facility] Work Phone: Comment on above: Note: Responsible Ob cafeteria server: CEEV AUTOFILE (3003) Alkaline Phos 49 U/L (35-104 ) [facility] Work Phone: Comment on above: Note: Responsible Ob cafeteria server: CEEV AUTOFILE (3003) Auto Diff Performed NOT REPORTED [facility] Work Phone: BUN/CRE Ratio NOT REPORTED (9-20 ) [facility] Work Phone: Cholesterol,VLDL NOT REPORTED mg/dL (1-30 ) [facility] Work Phone: GFR, Amer >60 mL/min (>60 ) [facility] Work Phone: Comment on above: Note: Responsible Ob cafeteria server: CEEV AUTOFILE (3003) GFR,non Amer >60 mL/min (>60 ) [facility] Work Phone: Comment on above: Note: Responsible Ob cafeteria server: CEEV AUTOFILE (3003) NRBC Automated 0.0 per_100_WBC (0.0 ) [facility] Work Phone: Comment on above: Note: Responsible Ob cafeteria server: XNV AUTOFILE (0943) Platelet Estimate NOT REPORTED [facility] Work Phone: Reported Physicians See Note [facility] Work Phone: Comment on above: Note: Reported Physi cians:Ordering: Cotton, AimeeAttending: Cotton, AimeeReferring: Cotton, Miguel Staging: NOT REPORTED [facility] Work Phone: Thyroid Stim. Horm. 3.38 mIU/L (0.30-5. 00 ) [facility] Work Phone: Comment on above: Note: Responsible Ob cafeteria server: CEEV AUTOFILE (0127) WBC Morphology NOT REPORTED [facility] Work Phone: TSH with ReflexOrdered By: Kamryn Holley on 09-23-2020 TSH Qn 3.38 m[IU]/L [facility] Work Phone: APTTon 04-08-2020 aPTT Coag (Bld) [Time] 25.2 s [place], [place] Comment on above: IV Heparin Therapy Range: 62.0-94.0 Brain Natriuretic Peptideon 04-08-2020 Natriuretic peptide B (Bld) [Mass/Vol] pg/mL <300 pg/mL [place], [place] Comment on above: Pro-BNP results ayse ot be compared to BNP results. Natriuretic peptide B (Bld) [Mass/Vol] Pro-BNP Reference Range: [place], [place] Comment on above: Rule Out: <300 Weaver Zone: Age <50 300-450 Age 50-75 300-900 Age >75 300-1800 Usually represents mild to moderate HF but other cardiopulmonary causes cannot be ruled out. Rule In: Age <50 >450 Age 50-75 >900 Age >75 >1800 CBCon 04-08-2020 Erythrocyte distribution width (RBC) [Ratio] 11.9 % 11.8 - 14.4 % [place] Hematocrit (Bld) [Volume fraction] 37.9 % 36.3 - 47.1 % [place] Hemoglobin (Bld) [Mass/Vol] 12.5 g/dL 11.9 - 15.1 g/dL [place] MCH (RBC) [Entitic mass] 27.8 pg 25.2 - 33.5 pg [place] MCHC (RBC) [Mass/Vol] 33.0 g/dL 28.4 - 34.8 g/dL [place] MCV (RBC) [Entitic vol] 84.2 fL 82.6 - 102.9 fL [place] Platelet mean volume (Bld) [Entitic vol] 10.9 fL 8.1 - 13.5 fL [place] Platelets (Bld) [#/Vol] 184 10*3/uL [place] RBC (Bld) [#/Vol] 4.50 10*6/uL 3.95 - 5.1 1 m/uL [place] WBC (Bld) [#/Vol] 7.8 10*3/uL [place] WBC (Bld) [#/Vol] 0.0 10*3/uL 0.0 per 10 0 WBC [place] COVID-19on 04-08-2020 Interpretation and review of laboratory results Abnormal [place] SARS-CoV-2, Rapid DETECTED Abnormal Not Detected [place] Comment on above: Rapid NAAT: The [...] this assay. Fact sheet for Healthcare Providers: https://www.fda.gov/media/044573/download Fact sheet for Patients: https://www.fda.gov/media/003378/download Methodology: Isothermal Nucleic Acid Amplification Results reported to the appropriate Health Department Source .NASOPHARYNGEAL SWAB [place], [place] CT CHEST PULMONARY EMBOLISM W CONTRASTon 04-08-2020 Unremarkable appeara nce of the chest with no evidence of pulmonary embolism and clear lungs. Incidentally noted hepatic fatty infiltration. [place], [place] EXAMINATION: CTA OF THE CHEST 04/08/2020 [...] No significant osseous or soft tissue abnormality. [place], [place] Jean Marie, Mhpn Incoming Radiant Results From [employer] Information - 04/08/2020 4:12 PM EST EXAMINATION: CTA [...] clear lungs. Incidentally noted hepatic fatty infiltration. [place], [place] Comprehensive Metabolic Pane fermin 04-08-2020 Albumin [Mass/Vol] 4.1 g/dL 3.5 - 5.2 g/dL [place] Albumin/Globulin [Mass ratio] 1.4 {ratio} [place] ALP [Catalytic activity/Vol] 62 U/L 35 - 104 U/L [place] ALT [Catalytic activity/Vol] 19 U/L 5 - 33 U/L [place] Anion gap [Moles/Vol] 10 mmol/L 9 - 17 mmol/L [place] AST [Catalytic activity/Vol] 20 U/L <32 [place] Bilirubin Ql (U) 0.48 mg/dL 0.3 - 1.2 mg/dL [place] Bun/Cre Ratio 23 High [place] Calcium [Mass/Vol] 8.9 mg/dL 8.6 - 10. 4 mg/dL [place] Chloride [Moles/Vol] 102 mmol/L 98 - 10 7 mmol/L [place] CO2 [Moles/Vol] 23 mmol/L 20 - 31 mmol/L [place] Creatinine [Mass/Vol] 0.47 mg/dL Low 0.5 - 0.9 mg/dL [place] GFR >60 >60 mL/min [place] GFR Non- >60 >60 mL/min [place] Glucose [Mass/Vol] 88 mg/dL 70 - 99 mg/dL [place] Interpretation and review of laboratory results Abnormal [place] Potassium [Moles/Vol] 3.7 mmol/L 3.7 - 5.3 mmol/L [place] Protein [Mass/Vol] 7.1 g/dL 6.4 - 8.3 g/dL [place] Sodium [Moles/Vol] 135 mmol/L 135 - 144 mmol/L [place] Urea nitrogen [Mass/Vol] 11 mg/dL 6 - 20 mg/dL [place] Metabolic Panelon 04-08-2020 GFR/1.73 sq M predicted among non-blacks MDRD (S/P/Bld) [Vol rate/Area] [place], [place] Comment on above: Stage 1: Some [...] body mass. Additional eGFR calculator available at: http://www.[employer]/multiple_crcl_2012.htm Otheron 04-08-2020 SARS-CoV-2 [place], [place] , Urineon 0 Beta HCG ( test) Ql (U) Negative NEGATIVE [place] Comment on above: Specimens with hCG l evels near the threshold of the test (25 mIU/mL) may give a negative or indeterminate result. In such cases, another test should be performed with a new specimen in 48-72 hours. If early is suspected clinically in this setting, correlation with quantitative serum b-hCG level is suggested. [employer] has confirmed the use of plasma for this test. This has not been cleared or approved by the U.S. Food and Drug Administration. The FDA has determined that such clearance is not necessary. Protime-INRon 04-08-2020 INR Coag (PPP) [Relative time] 1.0 {INR} [place] Comment on above: Non-therapeutic Range: INR = 0.9-1.2 Therapeutic Range: Moderate Anticoagulant Intensity: INR = 2.0-3.0 High Anticoagulant Intensity: INR = 2.5-3.5 PT Coag (PPP) [Time] 13.2 s [place] Troponinon 04-08-2020 Troponin I.cardiac [Mass/Vol] NOT REPORTED [place] Troponin T.cardiac [Mass/Vol] NOT REPORTED <0.03 ng/mL [place] Troponin, High Sensitivity <6 0 - 14 ng/L [facility] [place] Comment on above: High Sensitivity Troponin values cannot be compared with other Troponin methodologies. Patients with high levels of Biotin oral intake (i.e >5mg/day) may have falsely decreased Troponin levels. Samples collected within 8 hours of biotin intake may require additional information for diagnosis. CBC Auto Differentialon Basophils (Bld) [#/Vol] 0.05 10*3/uL [employer] Phone: Basophils/100 WBC (Bld) 1 % 0 - 2 % [facility] [employer] Phone: Differential Type NOT REPORTED [facility] [employer] Phone: Eosinophils (Bld) [#/Vol] 0.15 10*3/uL [employer] Phone: Eosinophils/100 WBC (Bld) 1 % 1 - 4 % [facility] Phone: Erythrocyte distribution width (RBC) [Ratio] 12.1 % 11.8 - 14.4 % [facility] [employer] Phone: Hematocrit (Bld) [Volume fraction] 44.5 % 36.3 - 47.1 % [facility] Phone: Hemoglobin (Bld) [Mass/Vol] 14.0 g/dL 11.9 - 15.1 g/dL [facility] [employer] Phone: Immature granulocytes (Bld) [#/Vol] 0 % 0 [employer] Phone: Immature granulocytes (Bld) [#/Vol] 10*3/uL [employer] Phone: Interpretation and review of laboratory results Abnormal [employer] Phone: Lymphocytes (Bld) [#/Vol] 2.83 10*3/uL [employer] Phone: Lymphocytes/100 WBC (Bld) 27 % 24 - 43 % [facility] [employer] Phone: MCH (RBC) [Entitic mass] 27.6 pg 25.2 - 33.5 pg [employer] Phone: MCHC (RBC) [Mass/Vol] 31.5 g/dL 28.4 - 34.8 g/dL [employer] Phone: MCV (RBC) [Entitic vol] 87.6 fL 82.6 - 102.9 fL [employer] Phone: Monocytes (Bld) [#/Vol] 0.52 10*3/uL [employer] Phone: Monocytes/100 WBC (Bld) 5 % 3 - 12 % [facility] [employer] Phone: Platelet mean volume (Bld) [Entitic vol] 12.0 fL 8.1 - 13.5 fL [employer] Phone: Platelets (Bld) [#/Vol] NOT REPORTED [employer] Phone: Platelets (Bld) [#/Vol] 241 10*3/uL [employer] Phone: RBC (Bld) [#/Vol] 5.08 10*6/uL 3.95 - 5.1 1 m/uL [employer] Phone: RBC morphology finding Nom (Bld) NOT REPORTED [employer] Phone: Segmented neutrophils/100 WBC (Bld) 66 % High 36 - 65 % [employer] Work Phone: [employer] Work Phone: WBC (Bld) [#/Vol] 10.6 10*3/uL [employer] Phone: WBC (Bld) [#/Vol] 0.0 10*3/uL 0.0 per 10 0 WBC [employer] Phone: WBC Morphology NOT REPORTED [facility] Work Phone: Cardiacon 07-06-2019 Cholesterol [Mass/Vol] 198 mg/dL (<200) He cynthia [facility] Work Phone: Comment on above: Note: Cholesterol Gu idelines:<200 [id number] Borderline>240 UndesirableResponsible Observer: CCEV AUTOFILE (8521) Comprehensive Metabolic Pane fermin 07-06-2019 Albumin [Mass/Vol] 4.5 g/dL 3.5 - 5.2 g/dL [facility] [employer] Phone: Albumin/Globulin [Mass ratio] 1.4 {ratio} [employer] Phone: ALP [Catalytic activity/Vol] 62 U/L 35 - 104 U/L [employer] Phone: ALT [Catalytic activity/Vol] 39 U/L High 5 - 33 U/L [employer] Phone: Anion gap [Moles/Vol] 16 mmol/L 9 - 17 mmol/L [employer] Phone: AST [Catalytic activity/Vol] 32 U/L High <32 [employer] Phone: Bilirubin Ql (U) 0.25 mg/dL Low 0.3 - 1.2 mg/dL [facility] [employer] Phone: Bun/Cre Ratio NOT REPORTED [facility] Work Phone: Calcium [Mass/Vol] 9.8 mg/dL 8.6 - 10. 4 mg/dL [employer] Phone: Chloride [Moles/Vol] 103 mmol/L 98 - 10 7 mmol/L [employer] Phone: CO2 [Moles/Vol] 19 mmol/L Low 20 - 31 mmol/L [employer] Phone: Creatinine [Mass/Vol] 0.51 mg/dL 0.5 - 0.9 mg/dL [employer] Phone: GFR >60 >60 mL/min L-3 [facility] Work Phone: GFR Non- >60 >60 mL/min [employer] Phone: GFR/1.73 sq M predicted among non-blacks MDRD (S/P/Bld) [Vol rate/Area] [employer] Phone: Comment on above: Average GFR for 20-2 9 years old: 116 mL/min/1.73sq m Chronic Kidney Disease: <60 mL/min/1.73sq m Kidney failure: <15 mL/min/1.73sq m eGFR calculated using average adult body mass. Additional eGFR calculator available at: http://www.[employer]/multiple_crcl_2012.htm GFR/1.73 sq M predicted among non-blacks MDRD (S/P/Bld) [Vol rate/Area] NOT REPORTED [facility] [employer] Phone: Glucose [Mass/Vol] 89 mg/dL 70 - 99 mg/dL [facility] [employer] Phone: Interpretation and review of laboratory results Abnormal [employer] Phone: Potassium [Moles/Vol] 4.6 mmol/L 3.7 - 5.3 mmol/L [employer] Phone: Protein [Mass/Vol] 7.8 g/dL 6.4 - 8.3 g/dL [employer] Phone: Sodium [Moles/Vol] 138 mmol/L 135 - 144 mmol/L [employer] Phone: Urea nitrogen [Mass/Vol] 14 mg/dL 6 - 20 mg/dL [employer] Phone: Hematologyon 07-06-2019 Basophils/100 WBC (Bld) 1 % (0-2) [facility] Work Phone: Comment on above: Note: Responsible Ob cafeteria server: XNV AUTOFILE (3226) Eosinophils (Bld) [#/Vol] 0.15 10*3/uL (0.00-0.44) [facility] Work Phone: Comment on above: Note: Responsible Ob cafeteria server: XNV AUTOFILE (3018) Eosinophils/100 WBC (Bld) 1 % (1-4) [facility] Work Phone: [phone] Comment on above: Note: Responsible Ob cafeteria server: XNV AUTOFILE (3018) Hematocrit (Bld) [Volume fraction] 44.5 % (36.3-47.1) [facility] Work Phone: Comment on above: Note: Responsible Ob cafeteria server: XNV AUTOFILE (3018) Hemoglobin (Bld) [Mass/Vol] 14.0 g/dL (11.9-15.1) [facility] Work Phone: Comment on above: Note: Responsible Ob cafeteria server: XNV AUTOFILE (3018) Lymphocytes (Bld) [#/Vol] 2.83 10*3/uL (1.10-3.70) [facility] Work Phone: [phone] Comment on above: Note: Responsible Ob cafeteria server: XNV AUTOFILE (3018) Lymphocytes/100 WBC (Bld) 27 % (24-43) [facility] Work Phone: Comment on above: Note: Responsible Ob cafeteria server: XNV AUTOFILE (3018) MCH (RBC) [Entitic mass] 27.6 pg (25.2-33.5) [facility] Work Phone: Comment on above: Note: Responsible Ob cafeteria server: XNV AUTOFILE (3018) MCV (RBC) [Entitic vol] 87.6 fL (82.6-102.9 ) [facility] Work Phone: Comment on above: Note: Responsible Ob cafeteria server: XNV AUTOFILE (3018) Monocytes (Bld) [#/Vol] 0.52 10*3/uL (0.10-1.20) [facility] Work Phone: Comment on above: Note: Responsible Ob cafeteria server: XNV AUTOFILE (3018) Monocytes/100 WBC (Bld) 5 % (3-12) [facility] Work Phone: Comment on above: Note: Responsible Ob cafeteria server: XNV AUTOFILE (3018) Platelets (Bld) [#/Vol] NOT REPORTED [facility] Work Phone: [phone] Platelets (Bld) [#/Vol] 241 10*3/uL (138-453) [facility] Work Phone: Comment on above: Note: Responsible Ob cafeteria server: XNV AUTOFILE (3018) RBC (Bld) [#/Vol] 5.08 10*6/uL (3.95-5.11) [facility] Work Phone: Comment on above: Note: Responsible Ob cafeteria server: XNV AUTOFILE (3018) RBC morphology finding Nom (Bld) NOT REPORTED [facility] Work Phone: WBC (Bld) [#/Vol] 0.0 per_100_WBC (0.0) [facility] Work Phone: Comment on above: Note: Responsible Ob cafeteria server: XNV AUTOFILE (3018) WBC (Bld) [#/Vol] 10.6 10*3/uL (3.5-11.3) [facility] Work Phone: Comment on above: Note: Responsible Ob cafeteria server: XNV AUTOFILE (3018) Lipid, Fastingon 07-06-2019 Cholesterol [Mass/Vol] 198 mg/dL <200 [facility] [employer] Work Phone: Comment on above: Cholesterol Guidelines: <200 Desirable 200-240 Borderline >240 Undesirable Cholesterol in HDL [Mass/Vol] 53 mg/dL >40 [facility]: Comment on above: HDL Guidelines: <40 Undesirable 40-59 Borderline >59 Desirable Cholesterol in LDL [Mass/Vol] 118 mg/dL 0 - 130 mg/dL [facility] Phone: Comment on above: LDL Guidelines: <100 Desirable 100-129 Near to/above Desirable 130-159 Borderline >159 Undesirable Direct (measured) LDL and calculated LDL are not interchangeable tests. Cholesterol in VLDL [Mass/Vol] NOT REPORTED 1 - 30 mg/dL [facility] [employer] Phone: Cholesterol.total/Chol esterol in HDL [Mass ratio] 3.7 {ratio} <5 [facility] [employer] Work Phone: Triglyceride, Fasting 135 mg/dL <150 [facility] [employer] Work Phone: Comment on above: Triglyceride Guidelines: <150 Desirable 150-199 Borderline 200-499 High >499 Very high Based on AHA Guidelines for fasting triglyceride, February 2012. Metabolic Panelon 07-06-2019 Albumin [Mass/Vol] 4.5 g/dL (3.5-5.2) [facility] Work Phone: Comment on above: Note: Responsible Ob cafeteria server: CCEV AUTOFILE (3002) ALT [Catalytic activity/Vol] 39 U/L High (5-33) [facility] Work Phone: Comment on above: Note: Responsible Ob cafeteria server: CCEV AUTOFILE (3002) Anion gap [Moles/Vol] 16 mmol/L (9-17) [facility] Work Phone: Comment on above: Note: Responsible Ob cafeteria server: CCEV AUTOFILE (3002) AST [Catalytic activity/Vol] 32 U/L High (<32) [facility] Work Phone: Comment on above: Note: Responsible Ob cafeteria server: CCEV AUTOFILE (3002) Bilirubin [Mass/Vol] 0.25 mg/dL Low (0.3-1.2) [facility] Work Phone: Comment on above: Note: Responsible Ob cafeteria server: CCEV AUTOFILE (3002) Calcium [Mass/Vol] 9.8 mg/dL (8.6-10.4) [facility] Work Phone: Comment on above: Note: Responsible Ob cafeteria server: CCEV AUTOFILE (3002) Chloride [Moles/Vol] 103 mmol/L (98-107) [facility] Work Phone: Comment on above: Note: Responsible Ob cafeteria server: CCEV AUTOFILE (3002) CO2 [Moles/Vol] 19 mmol/L Low (20-31) [facility] Work Phone: Comment on above: Note: Responsible Ob cafeteria server: CCEV AUTOFILE (3002) Creatinine [Mass/Vol] 0.51 mg/dL (0.50-0.90) [facility] Work Phone: Comment on above: Note: Responsible Ob cafeteria server: CCEV AUTOFILE (3002) Glucose [Mass/Vol] 89 mg/dL (70-99) [facility] Work Phone: Comment on above: Note: Responsible Ob cafeteria server: CCEV AUTOFILE (3002) Potassium [Moles/Vol] 4.6 mmol/L (3.7-5.3) [facility] Work Phone: Comment on above: Note: Responsible Ob cafeteria server: CCEV AUTOFILE (3002) Protein [Mass/Vol] 7.8 g/dL (6.4-8.3) [facility] Work Phone: Comment on above: Note: Responsible Ob cafeteria server: CCEV AUTOFILE (3002) Sodium [Moles/Vol] 138 mmol/L (135-144) [facility] Work Phone: Comment on above: Note: Responsible Ob cafeteria server: CCEV AUTOFILE (3002) Urea nitrogen [Mass/Vol] 14 mg/dL (6-20) [facility] Work Phone: Comment on above: Note: Responsible Ob cafeteria server: CCEV AUTOFILE (3002) Otheron 07-06-2019 (cont.) See Note [facility] Work Phone: Comment on above: Note: Average GFR fo r 20-29 years old:116 mL/min/1.73sq mChronic Kidney Disease:<60 mL/min/1.73sq mKidney failure:<15 mL/min/1.73sq meGFR calculated using average adult body mass. Additional eGFR calculatoravailable at:http://www.[employer]/multiple_crcl_2012.htmResponsible Observer: CCEV AUTOFILE (3002) Abs. Basophil 0.05 k/uL (0.00-0.20) [facility] Work Phone: Comment on above: Note: Responsible Ob cafeteria server: XNV AUTOFILE (3018) Abs.Imm.Granulocyte <0.03 k/uL (0.00-0.30) [facility] Work Phone: Comment on above: Note: Responsible Ob cafeteria server: XNV AUTOFILE (3018) Abs.Neutrophil (Seg) 7.04 k/uL (1.50-8.10) [facility] Work Phone: Comment on above: Note: Responsible Ob cafeteria server: XNV AUTOFILE (3018) Albumin/Glob Ratio 1.4 (1.0-2.5) [facility] Work Phone: Comment on above: Note: Responsible Ob cafeteria server: CCEV AUTOFILE (3002) Alkaline Phos 62 U/L (35-104) [facility] Work Phone: Comment on above: Note: Responsible Ob cafeteria server: CCEV AUTOFILE (3002) Auto Diff Performed NOT REPORTED [facility] Work Phone: BUN/CRE Ratio NOT REPORTED (9-20) [facility] Work Phone: Cholesterol,HDL 53 mg/dL (>40) [facility] Work Phone: Comment on above: Note: HDL Guidelines :<40 [id number] Borderline>59 DesirableResponsible Observer: CCEV AUTOFILE (3002) Cholesterol,LDL 118 mg/dL (0-130) [facility] Work Phone: Comment on above: Note: LDL Guidelines :<100 [id number] Near to/above [id number] Borderline>159 UndesirableDirect (measured) LDL and calculated LDL are not interchangeable tests.Responsible Observer: CCEV AUTOFILE (3002) Cholesterol,VLDL NOT REPORTED mg/dL (1-) [facility] Work Phone: [phone] Cholesterol.total/Chol esterol in HDL [Mass ratio] 3.7 {ratio} (<5) [facility] Work Phone: [phone] Comment on above: Note: Responsible Ob cafeteria server: CCEV AUTOFILE (3002) Erythrocyte distribution width (RBC) [Ratio] 12.1 % (11.8-14.4) [facility] Work Phone: [phone] Comment on above: Note: Responsible Ob cafeteria server: XNV AUTOFILE (3018) Free Insulin 34 uIU/mL High (3-19) [facility] Work Phone: [phone] Comment on above: Note: Responsible Ob cafeteria server: LAB ARUP (0603) GFR, Amer >60 mL/min (>60) [facility] Work Phone: [phone] Comment on above: Note: Responsible Ob cafeteria server: CCEV AUTOFILE (3002) GFR,non Amer >60 mL/min (>60) [facility] Work Phone: [phone] Comment on above: Note: Responsible Ob cafeteria server: CCEV AUTOFILE (3002) Immature granulocytes (Bld) [#/Vol] 0 % (0) [facility] Work Phone: [phone] Comment on above: Note: Responsible Ob cafeteria server: XNV AUTOFILE (3018) MCHC (RBC) [Mass/Vol] 31.5 g/dL (28.4-34.8) [facility] Work Phone: [phone] Comment on above: Note: Responsible Ob cafeteria server: XNV AUTOFILE (3018) Performing Lab: see note [facility] Work Phone: [phone] Comment on above: Note: [facility] [address] [facility] [id number] Note: [facility] [address] [facility] [id number] Platelet mean volume (Bld) [Entitic vol] 12.0 fL (8.1-13.5) [facility] Work Phone: Comment on above: Note: Responsible Ob cafeteria server: XNV AUTOFILE (3018) Reported Physicians See Note [facility] Work Phone: [phone] Comment on above: Note: Reported Physi cians:Ordering: Allyson Floyd AAttending: Everett, CynthiaReferring: Allyson Floyd Segmented neutrophils/100 WBC (Bld) 66 % High (36-65) [facility] Work Phone: [phone] Comment on above: Note: Responsible Ob cafeteria server: XNV AUTOFILE (3018) Staging: NOT REPORTED [facility] Work Phone: [phone] Thyroid Stim. Horm. 4.15 mIU/L (0.30-5.00) [facility] Work Phone: [phone] Comment on above: Note: Responsible Ob cafeteria server: CCEV AUTOFILE (3002) Thyroxine, Free 1.21 ng/dL (0.93-1.70) [facility] Work Phone: [phone] Comment on above: Note: Responsible Ob cafeteria server: CCEV AUTOFILE (3002) Total Insulin 46 uIU/mL High (3-19) [facility] Work Phone: Comment on above: Note: (NOTE)INTERPRE TIVE INFORMATION: Insulin, Free and TotalThis test reacts on a nearly equimolar basis with the analogsinsulin aspart, insulin glargine, and insulin lispro. Insulindetemir exhibits approximately 50 percent cross-reactivity. Testreactivity with insulin glulisine is negligible (<3 percent). Toconvert to pmol/L, multiply uIU/mL by 6.0. Reference intervalsestablished for fasting specimens.Performed by [facility],[address] [place] [address] hby.Quixby, [place] Xiong MD, Lab. DirectorResponsible Observer: LAB KIERAN (0603) Triglyceride,Fasting 135 mg/dL (<150) [facility] Work Phone: Comment on above: Note: Triglyceride G uidelines:<150 Jofnnexpv691-284 Qwgzkvqeir332-700 High>499 Very highBased on AHA Guidelines for fasting triglyceride, February 2012.Responsible Observer: CCEV AUTOFILE (6094) Triiodothyronine T3 150 ng/dL (80-200) [facility] Work Phone: Comment on above: Note: Responsible Ob cafeteria server: CEEV AUTOFILE (5907) WBC Morphology NOT REPORTED [facility] Work Phone: T3on 07-06-2019 T3, Total 150 ng/dL 80 - 200 ng/dL [facility] Work Phone: T4, Freeon 07-06-2019 Thyroxine, Free 1.21 ng/dL 0.93 - 1.7 ng/dL [facility] Work Phone: TSH without Reflexon 020 TSH Qn 4.15 m[IU]/L [facility] Work Phone: US NON OB TRANSVAGINALon Satisfactory IUD position. RECOMMENDATIONS: No follow-up imaging is recommended. Reference: US BPRs based on Radiology 2010 Jan;256(3):943-54; CT/MR BPRs based on J Am Joanne Radiol 2013;10:675-681. [facility] [place] [place] EXAMINATION: PELVIC ULTRASOUND 02/02/2019 TECHNIQUE: Transvaginal [...] Free Fluid: No evidence of free fluid. JDF ROBBY PERES Jean Marie, Mhpn Incoming Radiant Results From [employer] Information - 02/02/2019 8:44 AM EDT EXAMINATION: PELVIC [...] based on J Am Joanne Radiol 2013;10:675-681. [facility] ROBBY PERES Grant 08-21-2018 CNOV Office Visit (WALK[facility] ) ----- ESTEFANIA NAVARRETE ([id number]) 1995 F Date Time Provider Department 08/21/18 12:00 PM MIGUEL TENA (TELEVISION PRODUCTION TECHNICIAN) WALK[facility] During your visit today, we recorded the following information about you: Temperature Pulse Respiration Blood pressure 97.6 degrees 99/minute 16/minute 136/81 Weight 109.8 kg Miguel Tena APRN.CNP 08/21/2018 12:46 PM Signed Subjective The history is provided by the patient. No hand inspector was used. Cough This is a new [...] is a safe and effective decongestant 3. Storden Nasal [place] may offer relief of nasal and head [...] help open respiratory and sinus passages. - Storden Nasal [place] may offer relief of nasal and head [...] get worse. Thank you for coming to [facility] today. I appreciate your confidence in choosing the [facility] for your medical care. Miguel Tena APRN.TELEVISION PRODUCTION TECHNICIAN [facility] WALK IN [place] [id number] [facility] [address] Referring Provider: SELF [200] [...] is a safe and effective decongestant 3. Storden Nasal [place] may offer relief of nasal and head [...] help open respiratory and sinus passages. - Storden Nasal [place] may offer relief of nasal and head [...] get worse. [facility]. I appreciate your confidence in choosing the [facility] for your medical care. Miguel Tena APRN.DIANELYS [facility] WALK IN [facility] [address] [facility] [address] Prescriptions ordered this encounter [...] by MIGUEL TENA CNP on 08/21/18 Normal [facility] PROGRESSon 08-21-2018 Protein mass conc HNO ID: [id number] Author: Miguel Tena Service: ? Author Type: Nurse Practitioner Type: Progress Notes Filed: 08/21/2018 12:46 PM Note Text: Subjective The history is provided by the patient. No hand inspector was used. Cough This is a new [...] 3-5 days or get worse Miguel Tena APRN.TELEVISION PRODUCTION TECHNICIAN [facility] CNCOon 12-22-2017 CNCO Letter Text Erica Velazquez MD [facility] [address] [place] [address] Estefania Navarrete December 22, 2017 Estefania Navarrete [address] [place] [id number] Dear Ms. Navarrete, It was noted that you did not keep your scheduled appointment on 12-22-17. It is important to contact the office in advance if you are unable to keep your appointment so that it is available for other patients. Your medical care is important to us. Please call our office to reschedule an appointment. Sincerely, Erica Velazquez MD [facility] Consult Reporton 01-05-2017 Consult Report Patient: JITENDRA NAVARRETE Age: 21 years Sex: Female : 1995 Associated Diagnoses: None Author: TYRON MA RES KAREN [facility] Podiatry DepartmentReason for Consult: Active Problems (1)Crush [...] H 93 (JAN 04:18) H 93 (JAN 04:18) Labs (Last four charted values)WBC 9.6 (JAN [...] discussed with attending physician, Dr. Jaime Shepard [phone] ically Signed by: KAREN SHEPARD DPM, RES on 01/04/2017 13:59 EDTElectronically Co-Signed by: KAREN SHEPARD DPM, RESon 01/04/2017 14:37 EDTElectronically Co-Signed by: Rene REYES DPM 01/05/2017 18:28 EDT Normal [facility] APTTon 01-04-2017 aPTT 29.9 Second(s) Normal [facility] Comment on above: Result Comment: VERI FIED by Discern Expert. Performed By: #### 1 83541, 5186413, 626426, 239280, 681084, 486255 ####[facility] [address]syv[address] [place] [address] Medical Director: David Doe MD aPTT 25.9 Second(s) Normal 25.0-36.0 [facility] Comment on above: Performed By: #### 1 63328, 4680154, 160293, 325749, 094082, 486350 ####[facility] [address] [place] [id number] Medical Director: David Doe MD AUTO DIFFon 01-04-2017 Basophils Auto #/vol (Bld) 0.04 x1000 Normal 0.00-0.20 [facility] Comment on above: Performed By: #### 1 98969, 1400464, 910750, 105295, 334188, 016495 ####[facility] Sxsbwwzf525[address] [place] [address] Medical Director: David Doe MD Basos % 0.5 % Normal [facility] Comment on above: Performed By: #### 1 35299, 5618897, 783584, 648023, 689967, 604657 ####[facility] [address]byqdpy25[address] [place] [address] Medical Director: David Doe MD Eos Count 0.10 x1000 Normal 0.00-0.50 [facility] Comment on above: Performed By: #### 1 72711, 7715454, 353920, 097118, 727119, 691005 ####[facility] Lubebtbv50613 [place] [address] Medical Director: David Doe MD Eosinophils/100 leukocytes 1.0 % Normal [facility] Comment on above: Performed By: #### 1 44614, 8552457, 659728, 071631, 095210, 633026 ####[facility] Rlctaecr30712 [place] [address] Medical Director: David Doe MD Lymphocytes 2.84 x1000 Normal 1.20-4.80 [facility] Comment on above: Performed By: #### 1 26702, 9782567, 410844, 721391, 439070, 607324 ####[facility] [address]wkxle12341 [place] [address] Medical Director: David Doe MD Lymphocytes/100 leukocytes 29.4 % Normal [facility] Comment on above: Performed By: #### 1 85303, 1404724, 852026, 327186, 354236, 957045 ####[facility] Vkimfgfp60455 [place] [address] Medical Director: David Doe MD Charlotte Count 0.68 x1000 Normal 0.10-1.00 [facility] Comment on above: Performed By: #### 1 41577, 3855612, 929673, 126915, 961406, 400982 ####[facility] R[address]qjkhzy39140 [place] [address] Medical Director: David Doe MD Monocytes/100 leukocytes 7.0 % Normal [facility] Comment on above: Performed By: #### 1 29185, 3662898, 569781, 771102, 852860, 469659 ####[facility] Gbafgkpw96444 [place], [place] [id number]) [phone] Director: David Doe MD Neutrophils 5.98 x1000 Normal 1.40-8.80 [facility] Comment on above: Performed By: #### 1 37793, 4254366, 836363, 208532, 553384, 799022 ####[facility] Unkhttxr03577 [place] [address] Medical Director: David Doe MD Neutrophils/100 WBC Auto (Bld) 62.0 % Normal [facility] Comment on above: Performed By: #### 1 23264, 5674318, 044752, 529867, 168829, 004293 ####[facility] Dryfrghn08846 [place] [address] Medical Director: David Doe MD COMPMETAon 01-04-2017 Globulin 4.0 g/dL Normal [facility] Comment on above: Performed By: #### 1 34124, 1383299, 483660, 876488, 438136, 929091 ####[facility] Ynjlnubn16772 [place] [address] Medical Director: David Doe MD Osmolality 277 mOsm/kg Normal 275-295 [facility] Comment on above: Performed By: #### 1 50475, 2750242, 070449, 292625, 994922, 116323 ####[facility] Ejjekrmm04165 [place] [address] Medical Director: David Doe MD eGFR (non-black) mL/min/{1.73_m2} Normal [facility] Comment on above: Result Comment: Afri can [place] GFR Calc Performed By: #### 1 38686, 2530875, 398187, 747649, 500026, 749249 ####[facility] Rhjduvng00045 [place], [place] [address]) [phone] Director: David Doe MD Result Comment: Non GFR CalcMedical judgement is necessary to interpret GFR. The calculated GFR may not accurately reflect renal status in patients >70 years, women, acutely ill hospitalized patients and patients with acute renal failure or known renal disease.Note:Creatinine clearance (not GFR) should be used for drug dosing. Albumin/Globulin Ratio 0.8 {ratio} Normal [facility] Comment on above: Performed By: #### 1 08807, 3373668, 413149, 348643, 030445, 661226 ####[facility] Qalopcdg46713 [place] [address] Medical Director: David Doe MD BUN/Creatinine Ratio 17.6 mg/mg Normal [facility] Comment on above: Performed By: #### 1 85577, 7392794, 623426, 571803, 804428, 855055 ####[facility] Eraugrrj26923 [place] [address] Medical Director: David Doe MD Alk Phos 61 unit/L Normal 45-117 [facility] Comment on above: Performed By: #### 1 87604, 6932743, 105291, 023894, 589932, 077386 ####[facility] Wy[address]ak[address]2119 [place] [address] Medical Director: David Doe MD Bilirubin (total) 0.41 mg/dL Normal 0.20-1.00 [facility] Comment on above: Performed By: #### 1 77387, 1137990, 479670, 727881, 895145, 943729 ####[facility] Jvyhnmid65163 [place] [address] Medical Director: David Doe MD Protein 7.4 g/dL Normal 6.0-8.5 [facility] Comment on above: Performed By: #### 1 34286, 6825100, 163219, 605151, 681093, 990538 ####[facility] Hqcseevt39711 [place] [address] Medical Director: David Doe MD GPT 16 unit/L Normal 13-56 [facility] Comment on above: Result Comment: Mariposa puncture should occur prior to sulfasalazine and/or sulfapyridine administration due to the potential for falsely depressed results.Baseline assay values before administration of sulfasalazine and sulfapyridine therapy would not be affected. Performed By: #### 1 18851, 4831493, 518883, 393490, 555894, 262106 ####[facility] Jtvqmbac71072 [place], [place] [address]) [phone] Director: David Doe MD Creatinine 0.7 mg/dL Normal 0.6-1.0 [facility] Comment on above: Performed By: #### 1 74643, 5454050, 385821, 537245, 157495, 912288 ####[facility] Kipkduwa11804 [place], [place] [address]) [phone] Director: David Doe MD GOT 14 unit/L Low 15-37 [facility] Comment on above: Result Comment: Mariposa puncture should occur prior to sulfasalazine and/or sulfapyridine administration due to the potential for falsely depressed results.Baseline assay values before administration of sulfasalazine and sulfapyridine therapy would not be affected. Performed By: #### 1 41639, 2638827, 410418, 975857, 015903, 699546 ####[facility] [address]emtvdf05563 [place] [address] Medical Director: David Doe MD Urea nitrogen 13 mg/dL Normal 10-20 [facility] Comment on above: Performed By: #### 1 24498, 0074004, 066531, 807236, 104418, 442181 ####[facility] Jmufzdpl40943 [place] [address] Medical Director: David Doe MD Glucose mass conc 86 mg/dL Normal 72-100 [facility] Comment on above: Result Comment: Mariposa puncture should occur prior to sulfasalazine administration due to the potential for falsely depressed results. Venipuncture should occur prior to sulfapyridine administration due to the potential falsely elevated results.Baseline assay values before administration of sulfasalazine and sulfapyridine therapy would not be affected. Performed By: #### 1 71168, 6523895, 719086, 404941, 111137, 911599 ####[facility] Spwuyijw16547 [place] [address] Medical Director: David Doe MD Albumin 3.4 g/dL Normal 3.4-5.0 [facility] Comment on above: Performed By: #### 1 25218, 7301539, 720695, 299421, 979749, 599954 ####[facility] [address] [place] [address] Medical Director: David Doe MD CO2 19.0 mmol/L Low 21.0-32.0 [facility] Comment on above: Performed By: #### 1 35518, 6022173, 659318, 936237, 131936, 887176 ####[facility] Jrudphyk32464 [place] [address] Medical Director: David Doe MD Calcium 9.0 mg/dL Normal 8.5-10.5 [facility] Comment on above: Performed By: #### 1 54238, 7055631, 233096, 027899, 468151, 772872 ####[facility] Tguqrnif13495 [place] [address] Medical Director: David Doe MD Potassium molar conc 3.7 mmol/L Normal 3.5-5.1 [facility] Comment on above: Performed By: #### 1 76223, 9167225, 278498, 317815, 810102, 331568 ####[facility] Xlxqspbb00687 [place] [address] Medical Director: David Doe MD Sodium 139 mmol/L Normal 135-145 [facility] Comment on above: Performed By: #### 1 70493, 9818462, 383035, 139520, 880062, 731253 ####[facility] [address]pib[address] [place] [address] Medical Director: David Doe MD Chloride 108 mmol/L Normal 100-109 [facility] Comment on above: Performed By: #### 1 28626, 6494805, 304525, 560976, 396884, 495242 ####[facility] [address]syovnmf[address] [place] [address] Medical Director: David Doe MD CT LOWER [...] Damir SMITH MD Out: 01/04/17 12:59:57 Normal [facility] ED Physician Reporton 2016 ED Physician [...] Plan Diagnosis Crush injury of right foot ([id number] S97.81XA, Working, Medical) Plan Condition: Stable. Disposition: ED Discharge to Home was placed.(01/04/2017 13:39:31 EDT, Constant Order). Prescriptions: Launch prescriptions Pharmacy:Percocet 5/325 ([id number]) oral tablet (Prescribe): 1 tabs, ORAL, [id number], PRN: for pain, 24 tabs, 0 Refill(s)doxycycline hyclate 100 mg oral tablet (Prescribe): 100 mg = 1 tabs, ORAL, BID, for 10 days, 20 tabs, 0 Refill(s). Patient was given the following educational materials: Cryotherapy, Fvsu-ur-Zuas, Compartment Syndrome of the Foot, Compartment Syndrome of the Foot, Cryotherapy, Bocb-za-Vltc. Follow up with: 837 NO FAMILY PHYSICIAN [...] by: Selene GALVAN MD 01/04/2017 14:19 Normal [facility] ED Progress Noteon 7 ED Progress [...] medicatedsig other at bedsidepodiatry coming to see [id number] ASSUMED CARE OF PT, REPORT RECEIVED FROM [...] a little dizzy after trying crutches. Normal [facility] HCGon 01-04-2017 HCG, Qual <1.0 Normal [facility] Comment on above: Result Comment: 0 - 3 Negative3 - 50 Inconclusive>50 Positive Performed By: #### 1 18766, 7687423, 859498, 391553, 972227, 238275 ####[facility] Oil[address]ajsb588[address] [place], [place] [address]) [phone] Director: David Doe MD HEMOon 01-04-2017 DIFF? No Normal [facility] Comment on above: Performed By: #### 1 82685, 8785456, 813657, 865574, 882855, 060233 ####[facility] Wpohenyx70777 [place], [place] [address]) [phone] Director: David Doe MD Erythrocyte distribution width Auto Ratio (RBC) 13.3 % Normal 11.5-14.5 [facility] Comment on above: Performed By: #### 1 13533, 4487549, 905528, 973218, 449058, 609494 ####[facility] Yobuifip99225 [place], [place] [address]) [phone] Director: David Doe MD Erythrocytes (RBC) 4.80 x10 Normal 4.20-5.40 [facility] Comment on above: Result Comment: Note : RBC morphology is normal unless otherwise stated. Evaluation performed only if differential is requested. Performed By: #### 1 29790, 8241443, 492685, 214925, 732553, 417705 ####[facility] [address] [place], [place] [address]) [phone] Director: David Doe MD Hematocrit (HCT) 39.0 % Normal 36.0-46.0 [facility] Comment on above: Performed By: #### 1 43103, 6160609, 064522, 476823, 809486, 594743 ####[facility] Rwybzxfu81455 [place], [place] [address]) [phone] Director: David Doe MD Hemoglobin mass conc (Bld) 13.1 g/dL Normal 12.0-16.0 [facility] Comment on above: Performed By: #### 1 63605, 7796313, 252957, 139249, 482642, 789366 ####[facility] Cdz[address]rh733[address] [place], [place] [address]) [phone] Director: David Doe MD MCH 27.3 pg Normal 27.0-34.0 [facility] Comment on above: Performed By: #### 1 88427, 3464670, 819897, 487470, 449544, 035609 ####[facility] Oohvzspe40631 [place], [place] [address]) [phone] Director: David Doe MD MCHC mass conc (RBC) 33.6 g/dL Normal 32.0-37.0 [facility] Comment on above: Performed By: #### 1 59175, 9122298, 510536, 614604, 855501, 577652 ####[facility] Aznfdxpn45529 [place], [place] [address]) [phone] Director: David Doe MD MCV 81.3 fL Normal 80.0-100.0 [facility] Comment on above: Performed By: #### 1 48760, 9563272, 950456, 477169, 986950, 733945 ####[facility] Gtoqrphw54450 [place], [place] [address]) [phone] Director: David Doe MD Nucleated RBC% 0 /100WC Normal [facility] Comment on above: Performed By: #### 1 98360, 1201230, 796642, 601788, 640780, 867432 ####[facility] Yttbkmpz55464 [place] [address] Medical Director: David Doe MD Platelet mean volume (PMV) 9.4 fL Normal 7.4-10.4 [facility] Comment on above: Performed By: #### 1 78268, 4736123, 453739, 353290, 471844, 697725 ####[facility] Awvkknnu74484 [place] [address] Medical Director: David Doe MD Platelets 238 x1000 Normal 150-450 [facility] Comment on above: Performed By: #### 1 34708, 0738854, 111735, 836271, 020541, 551905 ####[facility] Ljztknpb72024 [place] [address] Medical Director: David Doe MD WBC (Leukocytes) 9.6 10*3/uL Normal [facility] Comment on above: Performed By: #### 1 42318, 8075105, 952957, 654946, 596008, 519200 ####[facility] Yrszceiw91589 [place] [address] Medical Director: David Doe MD WBC (Leukocytes) 9.6 x10 Normal 4.5-11.0 [facility] Comment on above: Performed By: #### 1 18123, 5924390, 290312, 886941, 344053, 489806 ####[facility] [address]qbvbir965[address] [place] [address] Medical Director: David Doe MD PT INRon 01-04-2017 Protime Median 11.1 Second(s) Normal [facility] Comment on above: Result Comment: VERI FIED by Discern Expert. Performed By: #### 1 56320, 2819154, 632801, 787453, 566681, 473615 ####[facility] Zudiomts80987 [place] [address] Medical Director: David Doe MD INR Coag RelTime (PPP) 1.0 {INR} Normal [facility] Comment on above: Result Comment: Norm al reference range for INR on patients not on anticoagulant therapy: 0.9-1.1. General therapeutic range for patients on anticoagulant therapy: 2.0-3.5. Performed By: #### 1 79398, 5549466, 073107, 866834, 559794, 017761 ####[facility] Fzvltukr03135 [place] [address] Medical Director: David Doe MD Protime Patient 11.3 Second(s) Normal 9.8-12.7 [facility] Comment on above: Performed By: #### 1 12557, 3653584, 085931, 912429, 920698, 099668 ####[facility] Dsqlmtqc19897 [place] [address] Medical Director: David Doe MD XR FOOT [...] RESENDIZ, Jose Alberto Out: 01/04/17 11:49:07 Normal [facility] Vital Signs Date Time Vital Sign Value Performing Clinician Facility 02-06-2025 09:29-0400 Body mass index (BMI) [Ratio] 43.38 kg/m2 [employer] Billy DO Work Phone: [facility] 02-06-2025 09:29-0400 Body weight 125.65 kg Aditya Billy DO Work Phone: [facility] 02-06-2025 09:29-0400 Diastolic blood pressure 78 mm[Hg] [employer]arma DO Work Phone: [facility] 02-06-2025 09:29-0400 Systolic blood pressure 126 mm[Hg] AdityaTonZof DO Work Phone: [facility] 01-23-2025 09:44-0400 Body mass index (BMI) [Ratio] 43.35 kg/m2 Latasha Dayron PA Work Phone: [facility] 01-23-2025 09:44-0400 Body weight 125.56 kg Latasha Dayron PA Work Phone: [facility] 01-23-2025 09:44-0400 Diastolic blood pressure 74 mm[Hg] Latasha Elkhorn PA Work Phone: [facility] 01-23-2025 09:44-0400 Systolic blood pressure 122 mm[Hg] Latasha Dayron PA Work Phone: [facility] 12-27-2024 10:35-0400 Body mass index (BMI) [Ratio] 42.88 kg/m2 Latasha Elkhorn PA Work Phone: [facility] 12-27-2024 10:35-0400 Body weight 124.19 kg Latasha Dayron PA Work Phone: [facility] 12-27-2024 10:35-0400 Diastolic blood pressure 74 mm[Hg] Latasha Elkhorn PA Work Phone: [facility] 12-27-2024 10:35-0400 Systolic blood pressure 122 mm[Hg] Latasha Dayron PA Work Phone: [facility] 12-13-2024 13:51-0400 Body mass index (BMI) [Ratio] 43.07 kg/m2 Aditya Billy DO Work Phone: [facility] 12-13-2024 13:51-0400 Body weight 124.74 kg Aditya Billy DO Work Phone: [facility] 12-13-2024 13:51-0400 Diastolic blood pressure 70 mm[Hg] Aditya Billy DO Work Phone: [facility] 12-13-2024 13:51-0400 Systolic blood pressure 128 mm[Hg] Aditya Billy DO Work Phone: [facility] 11-22-2024 14:29-0400 Body mass index (BMI) [Ratio] 42.57 kg/m2 Aditya Billy DO Work Phone: [facility] 11-22-2024 14:29-0400 Body weight 123.29 kg Aditya Billy DO Work Phone: [facility] 11-22-2024 14:29-0400 Diastolic blood pressure 78 mm[Hg] Aditya Billy DO Work Phone: [facility] 11-22-2024 14:29-0400 Systolic blood pressure 128 mm[Hg] Aditya Billy DO Work Phone: [facility] 10-25-2024 09:07-0400 Body mass index (BMI) [Ratio] 41.86 kg/m2 Latasha KULKARNI Work Phone: [facility] 10-25-2024 09:07-0400 Body weight 121.22 kg Latasha KULKARNI Work Phone: [facility] 10-25-2024 09:07-0400 Diastolic blood pressure 82 mm[Hg] Latasha KULKARNI Work Phone: [facility] 10-25-2024 09:07-0400 Systolic blood pressure 108 mm[Hg] Latasha KULKARNI Work Phone: [facility] 09-26-2024 10:24-0400 Body mass index (BMI) [Ratio] 41.62 kg/m2 Aditya Billy DO Work Phone: [facility] 09-26-2024 10:24-0400 Body weight 120.54 kg Aditya Billy DO Work Phone: [facility] 09-26-2024 10:24-0400 Diastolic blood pressure 76 mm[Hg] Aditya Billy DO Work Phone: [facility] 09-26-2024 10:24-0400 Systolic blood pressure 124 mm[Hg] Aditya Billy DO Work Phone: [facility] 08-29-2024 09:23-0400 Body mass index (BMI) [Ratio] 41.47 kg/m2 Aditya Billy DO Work Phone: [facility] 08-29-2024 09:23-0400 Body weight 120.11 kg Aditya Billy DO Work Phone: [facility] 08-29-2024 09:23-0400 Diastolic blood pressure 66 mm[Hg] Aditya Billy DO Work Phone: [facility] 08-29-2024 09:23-0400 Systolic blood pressure 122 mm[Hg] Aditya Billy DO Work Phone: [facility] 06-14-2024 09:05-0500 Body mass index (BMI) [Ratio] 41.16 kg/m2 Latasha Dayron PA Work Phone: [facility] 06-14-2024 09:05-0500 Body weight 119.2 kg Latasha Dayron PA Work Phone: [facility] 06-14-2024 09:05-0500 Diastolic blood pressure 74 mm[Hg] Latasha Dayron PA Work Phone: [facility] 06-14-2024 09:05-0500 Systolic blood pressure 114 mm[Hg] Latasha Dayron PA Work Phone: [facility] 05-17-2024 08:45-0500 Body mass index (BMI) [Ratio] 41.04 kg/m2 Latasha Dayron PA Work Phone: [facility] 05-17-2024 08:45-0500 Body weight 118.84 kg Latasha Dayron PA Work Phone: [facility] 05-17-2024 08:45-0500 Diastolic blood pressure 70 mm[Hg] Latasha Elkhorn PA Work Phone: [facility] 05-17-2024 08:45-0500 Systolic blood pressure 118 mm[Hg] Latasha Elkhorn PA Work Phone: [facility] 04-18-2024 09:17-0500 Body mass index (BMI) [Ratio] 42.26 kg/m2 Latasha Elkhorn PA Work Phone: [facility] 04-18-2024 09:17-0500 Body weight 122.38 kg Latasha Padgett PA Work Phone: [facility] 04-18-2024 09:17-0500 Diastolic blood pressure 76 mm[Hg] Latasha Padgett PA Work Phone: [facility] 04-18-2024 09:17-0500 Systolic blood pressure 114 mm[Hg] Latasha Elkhorn PA Work Phone: [facility] 02-21-2024 14:13-0400 Body mass index (BMI) [Ratio] 39.47 kg/m2 Latasha Elkhorn PA Work Phone: [facility] 02-21-2024 14:13-0400 Body weight 114.31 kg Latasha Dayron PA Work Phone: [facility] 02-21-2024 14:13-0400 Diastolic blood pressure 74 mm[Hg] Latasha Elkhorn PA Work Phone: [facility] 02-21-2024 14:13-0400 Systolic blood pressure 118 mm[Hg] Latasha Padgett PA Work Phone: [facility] 07-15-2023 11:50-0500 Body mass index (BMI) [Ratio] 36.65 kg/m2 Aditya Billy DO Work Phone: [facility] 07-15-2023 11:50-0500 Body weight 106.14 kg Aditya Billy DO Work Phone: [facility] 12-04-2021 10:03-0400 Body height 173.35 cm [employer] 12-04-2021 10:03-0400 Body mass index (BMI) [Ratio] 35.22 kg/m2 [email or web address] 12-04-2021 10:03-0400 Body surface area Derived from formula 2.26 m2 [employer] 12-04-2021 10:03-0400 Body weight 105.83 kg [employer] [employer] 12-04-2021 10:03-0400 Diastolic blood pressure 68 mm[Hg] [employer] 12-04-2021 10:03-0400 Heart rate 68 /min [employer] 12-04-2021 10:03-0400 Systolic blood pressure 116 mm[Hg] [employer] [facility] 10-15-2020 01:15-0400 Diastolic blood pressure 71 mm[Hg] Donny Andes DO Work Phone: [employer] Work Phone: 10-15-2020 01:15-0400 SaO2% (BldA) [Mass fraction] 94 % Donny Andes DO Work Phone: [employer] Work Phone: 10-15-2020 01:15-0400 Systolic blood pressure 117 mm[Hg] Donny Andes DO Work Phone: [employer] Work Phone: 10-14-2020 23:18-0400 Body temperature 97.59 [degF] Donny Andes DO Work Phone: [employer] Work Phone: 10-14-2020 23:18-0400 Heart rate 98 /min Donny Andes DO Work Phone: [employer] Work Phone: 10-14-2020 23:18-0400 Respiratory rate 18 /min Donny Andes DO Work Phone: [employer] Work Phone: 09-23-2020 08:31-0400 Body height 172.72 cm [employer] Work Phone: [facility] Work Phone: 09-23-2020 08:31-0400 Body mass index (BMI) [Ratio] 40.9 kg/m2 Miguel Holley CNP Work Phone: [facility] Work Phone: 09-23-2020 08:31-0400 Body surface area Derived from formula 2.32 m2 Miguel Holley CNP Work Phone: [facility] Work Phone: 09-23-2020 08:31-0400 Body temperature 964 [degF] Miguel Holley CNP Work Phone: [facility] Work Phone: 09-23-2020 08:31-0400 Body weight 122.02 kg Miguel Holley CNP Work Phone: [facility] Work Phone: 09-23-2020 08:31-0400 Diastolic blood pressure 80 mm[Hg] Miguel Holley CNP Work Phone: [facility] Work Phone: 09-23-2020 08:31-0400 Heart rate 80 /min Miguel Holley CNP Work Phone: [facility] Work Phone: 09-23-2020 08:31-0400 Respiratory rate 18 /min Miguel Holley CNP Work Phone: [facility] Work Phone: 09-23-2020 08:31-0400 SaO2% (BldA) [Mass fraction] 98 % Miguel Holley CNP Work Phone: [facility] Work Phone: 09-23-2020 08:31-0400 Systolic blood pressure 126 mm[Hg] Miguel Holley CNP Work Phone: [facility] Work Phone: 04-08-2020 16:25-0500 Respiratory Rate 16 /min Miguel Holley [facility] [place], [place] 04-08-2020 16:20-0500 Pulse (Heart Rate) 86 /min [facility] [place] 04-08-2020 16:20-0500 Pulse [facility]xim[facility] 98 % [facility] [place] 04-08-2020 16:00-0500 BP Diastolic 66 mm[Hg] [facility] , [place] 04-08-2020 16:00-0500 BP Systolic 121 mm[Hg] [facility] [place] 04-08-2020 13:23-0500 Body Temperature 98.4 [degF] [facility] [place] 03-19-2020 19:09-0400 BMI (Body Mass Index) 37.3 kg/m2 [facility] Work Phone: 03-19-2020 19:09-0400 Body weight 111.[address] [facility] Work Phone: 03-19-2020 19:09-0400 BSA (Body Surface Area) 2.[address] [facility] Work Phone: 03-19-2020 19:09-[address] [facility] Work Phone: 03-05-2020 08:30-0400 BMI (Body Mass Index) 37.3 kg/m2 [facility] Work Phone: 03-05-2020 08:30-0400 Body Temperature 95.4 [degF] [facility] Work Phone: 03-05-2020 08:30-0400 Body weight 111.[address] [facility] Work Phone: 03-05-2020 08:30-0400 BP Diastolic 80 mm[Hg] [facility] Work Phone: 03-05-2020 08:30-0400 BP Systolic 120 mm[Hg] [facility] Work Phone: 03-05-2020 08:30-0400 BSA (Body Surface Area) 2.[address] [facility] Work Phone: 03-05-2020 08:30-[address] [facility] Work Phone: 03-05-2020 08:30-0400 Pulse (Heart Rate) 74 /min [facility] Work Phone: 03-05-2020 08:30-0400 Pulse Oximetry 99 % [facility] Work Phone: 03-05-2020 08:30-0400 Respiratory Rate 18 /min [facility] Work Phone: 03-05-2020 08:30-0400 SaO2% (BldA) [Mass fraction] 99 % [facility] Work Phone: [facility] Work Phone: 12-05-2019 08:37-0400 BMI (Body Mass Index) 35.4 kg/m2 [facility] Work Phone: 12-05-2019 08:37-0400 Body Temperature 98.8 [degF] [facility] Work Phone: 12-05-2019 08:37-0400 Body weight 105.[address] [facility] Work Phone: 12-05-2019 08:37-0400 BP Diastolic 72 mm[Hg] [facility] Work Phone: 12-05-2019 08:37-0400 BP Systolic 116 mm[Hg] [facility] Work Phone: 12-05-2019 08:37-0400 BSA (Body Surface Area) 2.[address] [facility] Work Phone: 12-05-2019 08:37-0400 Flow Rate 0 L/min [facility] Work Phone: 12-05-2019 08:37-[address] [facility] Work Phone: 12-05-2019 08:37-0400 Inhaled Oxygen Concentration 21 % [facility] Work Phone: 12-05-2019 08:37-0400 Pulse (Heart Rate) 81 /min [facility] Work Phone: 12-05-2019 08:37-0400 Pulse Oximetry 98 % [facility] Work Phone: 12-05-2019 08:37-0400 Respiratory Rate 18 /min [facility] Work Phone: 12-05-2019 08:37-0400 SaO2% (BldA) [Mass fraction] 98 % [facility] Work Phone: [facility] Work Phone: 11-06-2019 09:02-0400 BMI (Body Mass Index) 36.2 kg/m2 [facility] Work Phone: 11-06-2019 09:02-0400 Body Temperature 95.8 [degF] [facility] Work Phone: 11-06-2019 09:02-0400 Body weight 107.[address] [facility] Work Phone: 11-06-2019 09:02-0400 BP Diastolic 80 mm[Hg] [facility] Work Phone: 11-06-2019 09:02-0400 BP Systolic 110 mm[Hg] [facility] Work Phone: 11-06-2019 09:02-0400 BSA (Body Surface Area) 2.[address] [facility] Work Phone: 11-06-2019 09:02-[address] [facility] Work Phone: 11-06-2019 09:02-0400 Pulse (Heart Rate) 94 /min [facility] Work Phone: 11-06-2019 09:02-0400 Pulse Oximetry 98 % [facility] Work Phone: 11-06-2019 09:02-0400 Respiratory Rate 18 /min [facility] Work Phone: 11-06-2019 09:02-0400 SaO2% (BldA) [Mass fraction] 98 % [facility] Work Phone: [facility] Work Phone: 10-12-2019 09:53-0400 BMI (Body Mass Index) 38.2 kg/m2 [facility] Work Phone: 10-12-2019 09:53-0400 Body Temperature 98.7 [degF] [facility] Work Phone: 10-12-2019 09:53-0400 Body weight 113.[address] [facility] Work Phone: 10-12-2019 09:53-0400 BP Diastolic 82 mm[Hg] [facility] Work Phone: 10-12-2019 09:53-0400 BP Systolic 122 mm[Hg] [facility] Work Phone: 10-12-2019 09:53-0400 BSA (Body Surface Area) 2.[address] [facility] Work Phone: 10-12-2019 09:53-0400 Flow Rate 0 L/min [facility] Work Phone: 10-12-2019 09:53-[address] [facility] Work Phone: 10-12-2019 09:53-0400 Inhaled Oxygen Concentration 21 % [facility] Work Phone: 10-12-2019 09:53-0400 Pulse (Heart Rate) 97 /min [facility] Work Phone: 10-12-2019 09:53-0400 Pulse Oximetry 98 % [facility] Work Phone: 10-12-2019 09:53-0400 Respiratory Rate 18 /min [facility] Work Phone: 10-12-2019 09:53-0400 SaO2% (BldA) [Mass fraction] 98 % [facility] Work Phone: [facility] Work Phone: 09-14-2019 08:35-0400 BMI (Body Mass Index) 37.7 kg/m2 [facility] Work Phone: 09-14-2019 08:35-0400 Body Temperature 96.6 [degF] [facility] Work Phone: 09-14-2019 08:35-0400 Body weight 112.[address] [facility] Work Phone: 09-14-2019 08:35-0400 BP Diastolic 80 mm[Hg] [facility] Work Phone: 09-14-2019 08:35-0400 BP Systolic 130 mm[Hg] [facility] Work Phone: 09-14-2019 08:35-0400 BSA (Body Surface Area) 2.[address] [facility] Work Phone: 09-14-2019 08:35-[address] [facility] Work Phone: 09-14-2019 08:35-0400 Pulse (Heart Rate) 81 /min [facility] Work Phone: 09-14-2019 08:35-0400 Pulse Oximetry 98 % [facility] Work Phone: 09-14-2019 08:35-0400 Respiratory Rate 18 /min [facility] Work Phone: 09-05-2019 10:26-0400 BMI (Body Mass Index) 37.3 kg/m2 [facility] Work Phone: 09-05-2019 10:26-0400 Body weight 111.[address] [facility] Work Phone: 09-05-2019 10:26-0400 BSA (Body Surface Area) 2.[address] [facility] Work Phone: 09-05-2019 10:26-[address] [facility] Work Phone: 08-17-2019 08:29-0400 BMI (Body Mass Index) 37.3 kg/m2 [facility] Work Phone: 08-17-2019 08:29-0400 Body Temperature 97.9 [degF] [facility] Work Phone: 08-17-2019 08:29-0400 Body weight 111.[address] [facility] Work Phone: 08-17-2019 08:29-0400 BP Diastolic 80 mm[Hg] [facility] Work Phone: 08-17-2019 08:29-0400 BP Systolic 120 mm[Hg] [facility] Work Phone: 08-17-2019 08:29-0400 BSA (Body Surface Area) 2.[address] [facility] Work Phone: 08-17-2019 08:29-[address] [facility] Work Phone: 08-17-2019 08:29-0400 Pulse (Heart Rate) 68 /min [facility] Work Phone: 08-17-2019 08:29-0400 Pulse Oximetry 98 % [facility] Work Phone: 08-17-2019 08:29-0400 Respiratory Rate 18 /min [facility] Work Phone: 07-20-2019 08:36-0500 BMI (Body Mass Index) 39 kg/m2 [facility] Work Phone: 07-20-2019 08:36-0500 Body Temperature 98.4 [degF] [facility] Work Phone: 07-20-2019 08:36-0500 Body weight 116.[address] [facility] Work Phone: 07-20-2019 08:36-0500 BP Diastolic 80 mm[Hg] [facility] Work Phone: 07-20-2019 08:36-0500 BP Systolic 120 mm[Hg] [facility] Work Phone: 07-20-2019 08:36-0500 BSA (Body Surface Area) 2.[address] [facility] Work Phone: 07-20-2019 08:36-[address] [facility] Work Phone: 07-20-2019 08:36-0500 Pulse (Heart Rate) 87 /min [facility] Work Phone: 07-20-2019 08:36-0500 Pulse Oximetry 97 % [facility] Work Phone: 07-20-2019 08:36-0500 Respiratory Rate 18 /min [facility] Work Phone: 07-06-2019 08:43-0500 BMI (Body Mass Index) 39.7 kg/m2 [facility] Work Phone: 07-06-2019 08:43-0500 Body Temperature 97.3 [degF] [facility] Work Phone: 07-06-2019 08:43-0500 Body weight 118.[address] [facility] Work Phone: 07-06-2019 08:43-0500 BP Diastolic 82 mm[Hg] [facility] Work Phone: 07-06-2019 08:43-0500 BP Systolic 122 mm[Hg] [facility] Work Phone: 07-06-2019 08:43-0500 BSA (Body Surface Area) 2.[address] [facility] Work Phone: 07-06-2019 08:43-[address] [facility] Work Phone: 07-06-2019 08:43-0500 Pulse (Heart Rate) 78 /min [facility] Work Phone: 07-06-2019 08:43-0500 Pulse Oximetry 98 % [facility] Work Phone: 07-06-2019 08:43-0500 Respiratory Rate 18 /min [facility] Work Phone: Encounters Encounter Date Encounter Type Care Provider Facility Start: 02-09-2025 End: 02-09-2025 Clinisync Result Encounter Aditya Billy DO Work Phone: [facility] Unsolicited Start: 02-09-2025 End: 02-09-2025 Clinisync Result Encounter Aditya Billy DO Work Phone: [facility] Unsolicited Start: 02-06-2025 End: 02-06-2025 Bamboo flowsheet Aditya Billy DO Work Phone: [facility] Start: 02-06-2025 End: 02-06-2025 Bamboo flowsheet Aditya Billy DO Work Phone: [facility] Start: 02-06-2025 End: 02-06-2025 Office outpatient visit 15 minutes Aditya Billy DO Work Phone: [facility] Comment on above: Third trimester preg robson ([facility]); 36 weeks gestation of ([facility]) Start: 02-06-2025 End: 02-06-2025 ambulatory ADITYA BILLY [...] Bamboo flowsheet Latasha KULKARNI Work Phone: [facility] Start: 01-23-2025 End: 01-23-2025 Bamboo flowsheet Latasha KULKARNI Work Phone: [facility] Start: 01-23-2025 End: 01-23-2025 Office outpatient visit 15 minutes Latasha KULKARNI Work Phone: [facility] Comment on above: Third trimester preg robson ([facility]); 34 weeks gestation of ([facility]) Start: 01-23-2025 End: 01-23-2025 ambulatory LATASHA PADGETT Not Available Start: 01-19-2025 End: 01-19-2025 Clinisync Result Encounter Aditya Billy DO Work Phone: [facility] Unsolicited Start: 01-19-2025 End: 01-19-2025 Clinisync Result Encounter Aditya Billy DO Work Phone: [facility] Unsolicited Start: 01-09-2025 End: 01-09-2025 Bamboo flowsheet Aditya Billy DO Work Phone: [facility] Start: 01-09-2025 End: 01-09-2025 Bamboo flowsheet Aditya Billy DO Work Phone: [facility] Start: 01-09-2025 End: 01-09-2025 Office outpatient visit 15 minutes Aditya Billy DO Work Phone: [facility] Comment on above: Third trimester preg robson ([facility]); 32 weeks gestation of ([facility]); Gestational diabetes mellitus (GDM), antepartum, gestational diabetes method of control unspecified ([facility]); Hyperglycemia during ([facility]) Start: 01-09-2025 End: 01-09-2025 ambulatory ADITYA BILLY [...] on above: Third trimester preg robson ([facility]) Start: 12-13-2024 End: 12-13-2024 ambulatory ADITYA BILLY Not Available Start: 12-13-2024 End: 12-13-2024 Office outpatient visit 15 minutes Aditya Billy DO Work Phone: [facility] Comment on above: Elevated glucose rikki erance test; History of gestational diabetes; Third trimester ([facility]); 28 weeks gestation of ([facility]); Gestational diabetes mellitus (GDM), antepartum, gestational diabetes method of control unspecified ([facility]) Start: 12-12-2024 End: 12-12-2024 Clinisync Result [...] [facility] Comment on above: Dizziness (Primary D x); 25 weeks gestation of ([facility]); Second trimester ([facility]); History of gestational diabetes; Diabetes mellitus screening Start: 10-25-2024 End: 10-25-2024 Office outpatient visit 15 minutes Latasha KULKARNI Work Phone: [facility] Comment on above: Second trimester pre gnancy; 21 weeks gestation of Start: 10-25-2024 End: 10-25-2024 ambulatory LATASHA PADGETT Not Available Start: 10-17-2024 End: 10-30-2024 Clinisync Result Encounter Aditya Billy DO Work Phone: [facility] External Department Unsolicited Start: 10-17-2024 End: 10-30-2024 Clinisync Result Encounter Aditya Billy DO Work Phone: [facility] External Department Unsolicited Start: 10-17-2024 End: 10-17-2024 ambulatory ADITYA ANGELICA GUEVARAO [facility] Start: 10-17-2024 End: 10-17-2024 Subsequent hospital visit by physician Miguel Stewart CNP Work Phone: [facility] Start: 09-26-2024 End: 09-26-2024 Bamboo flowsheet Aditya Billy DO Work Phone: [facility] Start: 09-26-2024 End: 09-28-2024 Bamboo flowsheet Aditya Billy DO Work Phone: [facility] Start: 09-26-2024 End: 09-28-2024 Clinisync Result Encounter Aditya Billy DO Work Phone: [facility] External Department Unsolicited Start: 09-26-2024 End: 09-26-2024 ambulatory ADITYA BILLY Not Available Start: 09-26-2024 End: 09-26-2024 Patient encounter procedure Aditya Billy DO Work Phone: [facility] Start: 09-26-2024 End: 09-26-2024 Periodic preventive med [...] Billy DO Work Phone: [facility] Comment on above: First trimester preg robson; 13 weeks gestation of ; History of gestational diabetes Start: 08-29-2024 End: 08-29-2024 ambulatory ADITYA BILLY Not Available Start: 08-04-2024 End: 08-04-2024 ambulatory ADITYA BILLY Not Available Start: 07-13-2024 End: 07-13-2024 Clinisync Result Encounter Aditya Billy DO Work Phone: [facility] External Department Unsolicited Start: 07-13-2024 End: 07-13-2024 Clinisync Result Encounter Aditya Billy DO Work Phone: [facility] Unsolicited Start: 07-10-2024 End: 07-10-2024 Clinisync Result Encounter Aditya Billy DO Work Phone: [facility] External Department Unsolicited Start: 07-10-2024 End: 07-10-2024 Clinisync Result Encounter Aditya Cervantes DO Work Phone: [facility] External Department Unsolicited Start: 06-14-2024 End: 06-14-2024 Bamboo flowsheet Latasha Padgett PA Work Phone: [facility] Start: 06-14-2024 End: 06-14-2024 Bamboo flowsheet Latasha Padgett PA Work Phone: [facility] Start: 06-14-2024 End: 06-14-2024 ambulatory LATASHA PADGETT Not Available Start: 06-14-2024 End: 06-14-2024 Office outpatient visit 15 minutes Latasha Padgett PA Work Phone: [facility] Comment on above: Encounter for weight management Start: 05-17-2024 End: 05-17-2024 Bamboo flowsheet Latasha Padgett PA Work Phone: [facility] Start: 05-17-2024 End: 05-17-2024 Bamboo flowsheet Latasha Padgett PA Work Phone: [facility] Start: 05-17-2024 End: 05-17-2024 Patient encounter procedure Latasha Padgett PA Work Phone: [facility] Comment on above: Weight [...] section Start: 02-21-2024 End: 02-21-2024 ambulatory LATASHA DAYRON Not Available Start: 07-15-2023 End: 07-15-2023 flow sheet Aditya Cervantes DO Work Phone: [facility] Comment on above: Second trimester pre gnancy Start: 01-01-2023 End: 01-01-2023 Patient encounter procedure Miguel Holley DYE BOARDING MACHINE OPERATOR - TELEVISION PRODUCTION TECHNICIAN Work Phone: [facility] Start: 01-01-2023 End: 01-01-2023 Subsequent hospital visit by physician Miguel Stewart CNP Work Phone: [facility] Comment on above: Women's annual routi ne gynecological examination Start: 12-16-2021 End: 12-16-2021 Subsequent hospital visit by physician Miguel Holley APRN - TELEVISION PRODUCTION TECHNICIAN Work Phone: [facility] Start: 12-04-2021 Split vc Shona Jenkins rne Other [facility] Office Start: 10-02-2021 End: 10-02-2021 Patient encounter procedure Miguel Holley APRN - TELEVISION PRODUCTION TECHNICIAN Work Phone: [facility] Start: 10-02-2021 End: 10-02-2021 Subsequent hospital visit by physician Miguel Holley APRN - TELEVISION PRODUCTION TECHNICIAN Work Phone: [facility] Comment on above: Women's annual routi ne gynecological examination Start: 10-14-2020 End: 10-15-2020 Emergency department patient visit Donny Hatfield DO Work Phone: [facility] ED Comment on above: Nausea vomiting and diarrhea (Primary Dx); Generalized abdominal pain Start: 09-23-2020 End: 09-24-2020 ambulatory MIGUEL HOLLEY [facility] Start: 09-23-2020 End: 09-23-2020 Subsequent hospital visit by physician Miguel Dell DYE BOARDING MACHINE OPERATOR - TELEVISION PRODUCTION TECHNICIAN Work Phone: [facility] Start: 09-23-2020 End: 09-23-2020 General Jammie Javier RODAS Work Phone: [facility] Work Phone: Start: 09-23-2020 End: 09-23-2020 Adult health examination Miguel Holley TELEVISION PRODUCTION TECHNICIAN Work Phone: [facility] Work Phone: Start: 09-23-2020 End: 09-23-2020 FQHC visit, estab pt Miguel Holley TELEVISION PRODUCTION TECHNICIAN Work Phone: [facility] Work Phone: Start: 04-08-2020 End: 04-08-2020 Emergency department patient visit [facility] ED Comment on above: COVID-19 (Primary Dx ); Fatty liver Start: 03-19-2020 End: 03-19-2020 Telemedicine consultation with patient Miguel Holley Work Phone: [facility] Work Phone: Start: 03-05-2020 End: 03-05-2020 Established patient Miguel Holley Work Phone: [facility] Work Phone: Start: 12-05-2019 End: 12-05-2019 Established patient Poly Franco Work Phone: [facility] Work Phone: Start: 11-06-2019 End: 11-06-2019 Established patient Poly Franco Work Phone: [facility] Work Phone: Start: 10-12-2019 End: 10-12-2019 Patient encounter procedure Paty Goldsmith Work Phone: [facility] Work Phone: Start: 10-12-2019 End: 10-12-2019 Established patient Poly Franco Work Phone: [facility] Work Phone: Start: 09-14-2019 End: 09-14-2019 Established patient Poly Franco Work Phone: [facility] Work Phone: Start: 09-11-2019 End: 09-11-2019 Telemedicine consultation with patient Poly Franco Work Phone: [facility] Work Phone: Start: 09-05-2019 End: 09-05-2019 Telemedicine consultation with patient Poly Franco Work Phone: [facility] Work Phone: Start: 08-17-2019 End: 09-11-2019 Telemedicine consultation with patient Poly Franco Work Phone: [facility] Work Phone: Start: 08-17-2019 End: 08-17-2019 Established patient Miguel Holley Work Phone: [facility] Work Phone: Start: 07-20-2019 End: 07-20-2019 Established patient Miguel Holley Work Phone: [facility] Work Phone: Start: 07-06-2019 End: 07-06-2019 Subsequent hospital visit by physician [facility] Start: 07-06-2019 End: 07-06-2019 Established patient Anh Virk Work Phone: [facility] Work Phone: Start: 07-06-2019 End: 07-06-2019 New patient Allyson Floyd Work Phone: [facility] Work Phone: Start: 02-02-2019 End: 02-04-2019 Subsequent hospital visit by physician [facility] Ultrasound Room [facility] Ultrasound Comment on above: Encounter for intrau terine device placement Start: 08-21-2018 End: 08-23-2018 Patient encounter procedure [facility] Start: 01-04-2017 End: 01-04-2017 Emergency department patient visit [address] [facility]ILY [facility]YSICIAN Facility:[id number] Procedures Date Procedure Procedure Detail Performing Clinician Start: 02-09-2025 US OB BPP W NON-STRESS Aditya Bilyl DO Work Phone: Start: 02-02-2025 US OB BPP W NON-STRESS Aditya Billy DO Work Phone: Start: 01-26-2025 US OB BPP W NON-STRESS Aditya Billy DO Work Phone: Start: 01-26-2025 US OB GROWTH Aditya Fazi o DO Work Phone: Start: 01-19-2025 OB BPP W NON-STRESS Aditya Billy DO [...] [Identifier] in Cervix by Cyto stain Miguel Stewart CNP Work Phone: Start: 12-16-2021 Assay of blood/uric acid Dedrick Wood PA-C Work Phone: Start: 12-16-2021 C-reactive protein Robel Wood PA-C Work Phone: Start: 12-04-2021 Nerve conduction [facility] dies 9-10 studies Shona Lucio Start: 10-02-2021 Microscopic observat ion [Identifier] in Cervix by Cyto stain Miguel Holley APRN - DIANELYS Work Phone: Start: 10-15-2020 Urinalysis microscop ic [...] pressure < 80 mm hg Miguel Holley TELEVISION PRODUCTION TECHNICIAN Work Phone: Start: 09-23-2020 Most recent systolic blood pressure <130 mm hg Miguel Holley TELEVISION PRODUCTION TECHNICIAN Work Phone: Start: 09-23-2020 Pt-focused hlth risk assmt score doc stnd instrm Miguel Holley [facility] Work Phone: Start: 09-23-2020 Antibody hiv-1&hiv-2 single result Miguel Holley TELEVISION PRODUCTION TECHNICIAN Work Phone: Start: 09-23-2020 Comprehensive metabo lic panel Miguel Holley DYE BOARDING MACHINE OPERATOR - [facility] Work Phone: Start: 04-08-2020 Ct thorax w/contrast material Ninoska Marianne Work Phone: Start: 04-08-2020 COVID-19 [facility] Work Phone: Start: 04-08-2020 Urine test visual color cmprsn meths Quitman Marianne Work Phone: Start: 04-08-2020 Assay of troponin quantitative Quitman Marianne Work Phone: Start: 04-08-2020 Blood count complete automated [facility] Work Phone: Start: 04-08-2020 Comprehensive metabo lic panel [facility] Work Phone: Start: 04-08-2020 Natriuretic peptide [facility] Work Phone: Start: 04-08-2020 Prothrombin time Ninoska [...] Diast bp <80 mm hg Humza blair Dell Work Phone: Start: 08-17-2019 Syst bp [...] in Cervix by Cyto stain Miguel Holley DYE BOARDING MACHINE OPERATOR - TELEVISION PRODUCTION TECHNICIAN Work Phone: H/O: section S/P jose carlos [...] Pap smear [facility] Start: 02-28-2025 End: 02-28-2025 Patient encounter procedure 02/28/2025 9:50 AM EDT Office Visit [facility] [address] [place] [address] Nedra Raymond, MECHANICAL ENGINEERING PROFESSOR [address] [place] [phone] [facility] Start: 02-13-2025 End: 02-13-2025 Patient encounter procedure 02/13/2025 9:10 AM EDT Routine [facility] [address] [place] [address] Aditya Cervantes DO [address] [place] [address] [facility] Start: 02-07-2025 End: 02-07-2025 Patient encounter procedure 02/07/2025 10:50 AM EDT Routine [facility] [address] [place] [phone] Aditya Cervantes, DO [address] [place] [address] [facility] Start: 02-06-2025 End: 02-06-2026 CULTURE, GROUP B STREP WITH SUSCEPTIBLITY CULTURE, GROUP B STREP WITH SUSCEPTIBLITY Lab Routine Third trimester ([facility]) Expected: 02/06/2025, Expires: 02/06/2026 [facility] Work Phone: Comment on above: Expected: 02/06/2025 , Expires: 02/06/2026 Start: 02-06-2025 End: 02-06-2025 Patient encounter procedure [facility] Comment on above: Arrived Start: 01-29-2025 Influenza vaccination Influenza Vacc ine (#1) [facility] Start: 01-23-2025 End: 01-23-2025 Patient encounter procedure [facility] Comment on above: Arrived Start: 01-10-2025 End: 01-10-2025 Patient encounter procedure 01/10/2025 1:00 PM EDT Routine [facility] [address] [place] [phone] Aditya Cervantes, DO [address] [place] [address] [facility] Start: 01-09-2025 End: 07-12-2025 US biophysical profile w non stress test US biophysical profile w non stress test Imaging Routine Hyperglycemia during ([facility]) Expected: 01/09/2025 (Approximate), Expires: 07/12/2025 [facility] [...] AM EDT Routine [facility] [address] [place] [phone] Latasha Padgett PA [address] [place], [place] [phone] [facility] Start: 12-13-2024 End: 12-13-2024 Patient encounter procedure 12/13/2024 1:40 PM EDT Routine [facility] [address] [place] [address] Aditya Cervantes DO [address] [place] [place], [place] [id number] [facility] Start: 12-06-2024 End: 12-06-2025 Measurement of glucose 3 hours after glucose challenge for glucose tolerance test Glucose tolerance, 3 hours Lab Routine Elevated glucose tolerance test Expected: 12/06/2024 (Approximate), Expires: 12/06/2025 [facility] Work Phone: Comment on above: Expected: 12/06/2024 (Approximate), Expires: 12/06/2025 Start: 11-22-2024 End: 11-22-2025 12 lead ECG ECG 12 lead unit performed ECG Routine Dizziness Expected: 11/22/2024 (Approximate), Expires: 11/22/2025 [facility] Work Phone: Comment on above: Expected: 11/22/2024 (Approximate), Expires: 11/22/2025 Start: 11-22-2024 End: 11-22-2025 CBC panel - Blood by Automated count CBC Lab Routine Diabetes mellitus screening Expected: 11/22/2024 (Approximate), Expires: 11/22/2025 [facility] Work Phone: Comment on above: Expected: 11/22/2024 (Approximate), Expires: 11/22/2025 Start: 11-22-2024 End: 11-22-2025 Measurement of glucose 1 hour after glucose challenge for glucose tolerance test Glucose tolerance, 1 hour Lab Routine Diabetes mellitus screening Expected: 11/22/2024 (Approximate), Expires: 11/22/2025 [facility] Comment on above: Expected: 11/22/2024 (Approximate), Expires: 11/22/2025 Start: 11-22-2024 End: 11-22-2024 Patient encounter procedure 11/22/2024 1:50 PM EDT Routine [facility] [address] [place] [phone] Aditya Cervantes DO [address] [place] [address] [facility] Start: 10-25-2024 End: 10-25-2024 Patient encounter procedure 10/25/2024 9:30 AM EDT Routine [facility] [address] [place] [phone] Latasha Padgett PA [address] [place] [address] [facility] Start: 10-25-2024 End: 10-25-2024 Professional / ancillary services management 10/25/2024 8:00 AM EDT Ancillary Procedure [facility] [address] [place] [phone] [facility] Start: 10-02-2024 Screening for malign ant neoplasm of cervix Pap smear [facility] Start: 09-26-2024 End: 11-26-2024 Alpha fetoprotein, maternal [...] [facility] [address] [place] [address] Aditya Cervantes, DO [address] [place] [address] [facility] Start: 08-29-2024 End: 08-29-2024 Patient encounter procedure 08/29/2024 9:20 AM EDT Routine [facility] [address] [place] [address] Aditya Cervantes, DO [address] [place] [address] Arrived [facility] Comment on above: Arrived Start: 08-04-2024 End: 08-04-2024 ambulatory 08/04/2024 9:00 AM EST Initial [facility] [address] [place] [address] [facility] Start: 08-04-2024 End: 08-04-2024 Professional / ancillary services management 08/04/2024 8:30 AM EST Ancillary Procedure [facility] [address] [place] [address] [facility] Start: 07-12-2024 End: 07-12-2024 Patient encounter procedure 07/12/2024 8:30 AM EST Office Visit [facility] [address] [place] [address] Latasha Padgett PA [address] [place] [address] [place] [address] [facility] Start: 05-17-2024 End: 05-17-2024 Patient encounter procedure [facility] Comment on above: Arrived Start: 05-10-2024 End: 05-10-2024 Patient encounter procedure 05/10/2024 8:40 AM EST Office Visit [facility] [address] [place] [phone] Latasha Padgett, PA [address] [place] [address] [facility] Start: 01-30-2024 COVID-19 Vaccine ( season) COVID-19 Vaccine ( season) [facility] Start: 01-30-2024 Influenza vaccination Influenza Vacc ine (#1) [facility] Start: 08-19-2023 End: 08-19-2023 Patient encounter procedure 08/19/2023 11:00 AM EDT Routine [facility] [address] [place] [address] Latasha aPdgett, PA [address] [place] [address] [facility] Start: 08-19-2023 End: 08-19-2023 Professional / ancillary services management 08/19/2023 10:00 AM EDT Ancillary Procedure [facility] [address] [place] [phone] [facility] Start: 01-20-2023 End: 01-20-2023 Admission to same day surgery center 01/20/2023 Surgery IP Unit Hedges, MD [address] [place] [address] HYSTEROSCOPY - IUD REMOVAL [facility] Comment on above: HYSTEROSCOPY - IUD R EMOVAL Start: 01-20-2023 End: 01-20-2023 Hysteroscopy removal impacted foreign body HYSTEROSCOPY Intrauterine contraceptive device threads lost, initial encounter 01/20/2023 11:10 AM EDT [facility] Start: 01-20-2023 Subsequent hospital visit by physician 01/20/2023 Hospital Encounter IP Unit Mychal Nichols MD [address] [place] [address] [facility] Start: 12-29-2022 Influenza vaccination Flu vaccine (# 1) ABIGAIL [facility] Start: 04-27-2022 End: 04-27-2022 Patient encounter procedure [facility] Start: 01-29-2022 Influenza vaccination [facility] Start: 02-07-2021 Cervical cancer screen Cervical canc er screen [facility] [place] Start: 02-07-2021 Screening for malign ant neoplasm of cervix [facility] Start: 01-29-2021 Influenza vaccination Flu vacc ine (Season Ended) [facility] Work Phone: Start: 09-30-2020 CBC W Auto Different ial panel - Blood [facility] Start: 09-30-2020 Lipid 1996 panel - Serum or Plasma LIPID PROFILE [facility] Start: 09-23-2020 Psychiatry Health Par [facility] Work Phone: Comment on above: Note: Please make a referral to: Start: 03-26-2020 SARS-CoV-2, KAILA [facility] Work Phone: Start: 03-19-2020 COVID Drive up Testing [facility] Work Phone: Start: 02-06-2020 Medical Establ ished Patient [facility] Work Phone: Start: 01-30-2020 Influenza vaccination Flu vaccine (# 1) [place], [place] Start: 11-09-2019 Medical Establ ished Patient [facility] Work Phone: Start: 10-11-2019 Medical Establ ished Patient [facility] Work Phone: Start: 09-14-2019 Medical Establ ished Patient [facility] Work Phone: Start: 08-17-2019 Medical Establ ished Patient [facility] Work Phone: Start: 07-20-2019 Medical Establ ished Patient [facility] Work Phone: Start: 07-13-2019 Lipid 1995 panel [facility] Work Phone: Start: 02-14-2019 End: 02-14-2019 Office Visit 02/14/2019 Office Visit Obstetrics and Gynecology Pilar Marie APRN - CNM [address], [place] [id number] [facility] CONTRACT ASSOCIATE Start: 02-07-2019 Chlamydia screen Chlamydia screen [place], [place] Start: 02-07-2019 Screening for Chlamy valentino trachomatis Chlamydia screen [facility] Start: 01-29-2019 Influenza vaccination Flu vaccine (# 1) [place], [place] Start: 10-29-2017 DTaP/Tdap/Td vaccine (2 - Td or Tdap) DTaP/Tdap/Td vaccine (2 - Td or Tdap) [facility] Start: 10-29-2017 DTaP/Tdap/Td vaccine (2 - Td) DTaP/Tdap/Td vaccine (2 - Td) [place] Start: 2015 Hepatitis B vaccine (1 of 3 - 19+ 3-dose series) Hepatitis B vaccine (1 of 3 - 19+ 3-dose series) Abigail Seals [facility] Start: 2014 Hepatitis C screening Hepatitis C sc reemadan [facility] Start: 2012 COVID-19 Vaccine (1) COVID-19 Vaccin e (1) [facility] Work Phone: Start: 2011 HIV screen HIV screen [place], [place] Start: 2011 HIV screening HIV screen [facility] Start: 2011 HPV vaccine (1 - Fem shiela 3-dose series) HPV vaccine (1 - Female 3-dose series) [place], [place] Start: 2009 Varicella Vaccine (1 of 2 - 13+ 2-dose series) Varicella Vaccine (1 of 2 - 13+ 2-dose series) [facility] Start: 2008 COVID-19 Vaccine (1) COVID-19 Vaccin e (1) [facility] Phone: Start: 2008 Depression Screen Depression Screen [facility] Start: 2007 HPV vaccine (1 - 2-d ose series) HPV vaccine (1 - 2-dose series) [facility] Start: 2007 HPV vaccine (1 - Fem shiela 2-dose series) HPV vaccine (1 - Female 2-dose series) [facility] Phone: Start: 2001 COVID-19 Vaccine (1) COVID-19 Vaccin e (1) [facility] Start: 1997 Varicella vaccine (1 of 2 - 2-dose childhood series) Varicella vaccine (1 of 2 - 2-dose childhood series) [facility] Start: 1996 COVID-19 Vaccine (#1) COVID-19 Vacci ne (#1) [facility] Start: 1996 Hepatitis C screening Hepatitis C sc reen [facility] Phone: End: 10-17-2024 Alpha Fetoprotein, Maternal [facility] Phone: Comment on above: Once for 1 Occurrenc es starting 10/17/2024 until 10/17/2024 End: 12-16-2021 GLENNY Screen with [facility] Phone: Comment on above: Once for 1 Occurrenc es starting 12/16/2021 until 12/16/2021 CHLAMYDIA TRACHOMATI S (GENITO/STI) CHLAMYDIA TRACHOMATIS (GENITO/STI) Lab Routine STD exposure Vaginal discharge Ordered: 09/26/2024 [facility] Comment on above: Ordered: 09/26/2024 Cytology Cervical or vaginal smear or scraping study Pap Smear Pathology and Cytology Routine Well woman exam with routine gynecological exam Ordered: 09/26/2024 [facility] Comment on above: Ordered: 09/26/2024 End: 10-02-2021 Cytopathology procedure, preparation of smear, genital source PAP SMEAR Lab Routine Women's annual routine gynecological examination 1 Occurrences starting 10/02/2021 until 10/02/2021 [employer] Phone: Comment on above: 1 Occurrences starti ng 10/02/2021 until 10/02/2021 End: 01-01-2023 Cytopathology procedure, preparation of smear, genital source PAP SMEAR Lab Routine Women's annual routine gynecological examination 1 Occurrences starting 01/01/2023 until 01/01/2023 [employer] Phone: Comment on above: 1 Occurrences starti ng 01/01/2023 until 01/01/2023 End: 12-16-2021 HLA-B27 Antigen [facility] Phone: Comment on above: Once for 1 Occurrenc es starting 12/16/2021 until 12/16/2021 End: 07-06-2019 Insulin, free Insulin, free Lab Routine Once for 1 Occurrences starting 07/06/2019 until 07/06/2019 [employer] Phone: Comment on above: Once for 1 Occurrenc es starting 07/06/2019 until 07/06/2019 Insulin, free Insulin, free La b Routine 07/06/2019 9:31 AM EST [employer] Phone: End: 12-16-2021 Lyme Ab BON [employer] Phone: Comment on above: Once for 1 Occurrenc es starting 12/16/2021 until 12/16/2021 Neisseria gonorrhoea e DNA [Presence] in Unspecified specimen by KAILA with probe detection Neisseria gonorrhea DNA probe, direct Lab Routine STD exposure Vaginal discharge Ordered: 09/26/2024 [facility] Comment on above: Ordered: 09/26/2024 SURESWAB(R) ADVANCED VAGINITIS PLUS, TMA SURESWAB(R) ADVANCED VAGINITIS PLUS, TMA Pathology and Cytology Routine STD exposure Vaginal discharge Ordered: 09/26/2024 [facility] Work Phone: Comment on above: Ordered: 09/26/2024 End: 02-13-2025 US for US OB follow up transabdominal approach Imaging Routine Elevated glucose tolerance test Gestational diabetes mellitus (GDM), antepartum, gestational diabetes method of control unspecified ([facility]) q4 weeks for 4 Occurrences starting 12/13/2024 until 02/13/2025 [facility] Comment on above: q4 weeks for 4 Occur rences starting 12/13/2024 until 02/13/2025 Immunizations Immunization Date Immunization Notes Care Provider Em de la cruz 10-30-2007 tetanus toxoid, redu katelyn diphtheria toxoid, and acellular pertussis vaccine, adsorbed [facility] Payers Date Payer Category Payer Medicaid [id number] 2023 Medicaid [id number] 2023 Unknown [facility] [id number] 2023-Present [address] [address] [place] [address] [id number] 2022 Unknown [employer] [address] [id number] 2022-Present [address] [place] [address] [id number] 2018 Unknown [id number] 2016 Unknown [employer] [address] xxxxxxxxxxxx 2016-Present [phone] [address] [place] [address] xxxxxxxxxxxx [id number] 1996 Unknown [id number] 2.16.840.1.990506.3.579.2.175 1996 Unknown [id number] 2.16.840.1.850267.3.579.2.173 1996 Unknown [id number] 2.16.840.1.104929.3.579.2.125 9 1996 Unknown [id number] 2.16.840.1.925013.3.579.2.125 9 1996 Unknown [id number] 2.16.840.1.041170.3.579.2.125 9 1996 Unknown [id number] 2.16.840.1.031771.3.579.2.125 9 1996 Unknown [id number] 2.16.840.1.451370.3.579.2.125 9 1996 Unknown [id number] 2.16.840.1.751022.3.579.2.125 9 1996 Unknown [id number] 2.16.840.1.040040.3.579.2.125 9 1996 Unknown [id number] 2.16.840.1.820272.3.579.2.125 9 1996 Unknown [id number] 2.16.840.1.372857.3.579.2.125 9 1996 Unknown [id number] 2.16.840.1.640236.3.579.2.125 9 1996 Unknown [id number] 2.16.840.1.476611.3.579.2.125 9 1996 Unknown [id number] 2.16.840.1.999639.3.579.2.125 9 1996 Unknown [id number] 2.16.840.1.707768.3.579.2.125 9 1996 Unknown [id number] 2.16.840.1.157407.3.579.2.125 9 1996 Unknown [id number] 2.16.840.1.456003.3.579.2.125 9 1996 Unknown [id number] 2.16.840.1.429789.3.579.2.125 9 1996 Unknown [id number] 2.16.840.1.753471.3.579.2.125 9 Unknown [id number] [id number] Social History Date Type Detail Facility Assertion Health [facility] Work Phone: Assertion Emotional stress (finding) [facility] [employer] [facility] Work Phone: Tobacco smoking status Unknown if ever smoked [facility] Assertion Sexually active (finding) [facility] [employer] [facility] Work Phone: Assertion Gender identity finding (finding) [facility] [employer] [facility] Work Phone: Assertion Finding of sexua l orientation (finding) [facility] [employer] [facility] Work Phone: Start: 02-07-2018 End: 01-06-2023 Tobacco smoking status NHIS Never smoker [place] Start: 02-07-2018 End: 01-20-2023 Alcohol intake Current drinker of alcohol (finding) [facility] [employer] Phone: Start: 12-12-2015 Alcohol Comment occassionally [place], [place] Start: 1996 Sex Assigned At Not on file [place] Start: 04-08-2020 End: 01-06-2023 Tobacco use and exposure Never used [place] Exposure to SARS-CoV-2 (event) Not sure [place] Start: 02-07-2018 End: 01-20-2023 Alcohol intake Yes [employer] [place], [place] Assertion Family illness (situation) [facility] Work Phone: Assertion Single person (finding) [facility] Work Phone: Start: *Tobacco [facility] Start: 04-15-2023 [facility] Start: 01-20-2023 History of Social function [facility] [employer] Start: 10-12-2013 Sex Female (finding) [facility] [employer] NEGATED: Highlighted row Assertion Exposure to pollution (event) [facility] Work Phone: NEGATED: Highlighted row Assertion Tobacco user (finding) [facility] Work Phone: NEGATED: Highlighted row Assertion Current drinker of alcohol (finding) [facility] Work Phone: NEGATED: Highlighted row Assertion Finding relating to drug misuse behavior (finding) [facility] Work Phone: Mental Status Date Assessment Result Facility Cognitive function Cognitive fun ctioning was normal Cognitive function finding (finding) [facility] Work Phone: Clinical Notes 11-06-2019 to 02-06-2025 Lindsey Dong LPN - 02/06/2025 10:10 AM CALYA Bartlett - 01/23/2025 9:50 AM Leatha Cervantes [...] Excessive growth affecting management of mother, antepartum ([facility]) 12/06/2023 Third trimester ([facility]) 12/06/2023 No Additional Past Medical History [...] nursing note reviewed. Exam conducted with a surgical scrub technician present. Vitals: Estimated body mass index is 43.38 kg/m as calculated from the following: Height as of 01/10/24: 5' 7 . Weight as of this encounter: 277 lb. BP: 126/78 No LMP recorded. Patient is . ASSESSMENT & PLAN ICD-10-CM 1. Third trimester ([facility]) Z34.93 POCT urinalysis dipstick manually resulted CULTURE, GROUP B STREP WITH SUSCEPTIBLITY CULTURE, GROUP B STREP WITH SUSCEPTIBLITY 2. 36 weeks gestation of ([facility]) Z3A.36 Patient is doing well but [...] Aditya Cervantes DO documented in this encounter [facility] 01-23-2025 History of Presen t [...] Excessive growth affecting management of mother, antepartum ([facility]) 12/06/2023 Third trimester ([facility]) 12/06/2023 No Additional Past Medical History [...] ICD-10-CM 1. Third trimester ([facility]) Z34.93 CANCELED: POCT urinalysis dipstick manually resulted 2. 34 weeks gestation of ([facility]) Z3A.34 CANCELED: POCT urinalysis dipstick manually [...] of: CAYLA Kwok documented in this encounter [facility] 01-09-2025 History of Presen t [...] Excessive growth affecting management of mother, antepartum ([facility]) 12/06/2023 Third trimester ([facility]) 12/06/2023 No Additional Past Medical History [...] nursing note reviewed. Exam conducted with a surgical scrub technician present. Vitals: Estimated body mass index is 42.88 kg/m as calculated from the following: Height as of 01/10/24: 5' 7 . Weight as of 12/27/24: 273 lb 12.8 oz. BP: No LMP recorded. Patient is . Assessment/Plan Encounter Diagnosis: ICD-10-CM 1. Third trimester ([facility]) Z34.93 POCT urinalysis dipstick manually resulted 2. 32 weeks gestation of ([facility]) Z3A.32 3. Gestational diabetes mellitus (GDM), antepartum, gestational diabetes method of control unspecified ([facility]) O24.419 4. Hyperglycemia during ([facility]) O99.810 US biophysical profile w non [...] Aditya Cervantes DO documented in this encounter [facility] 12-27-2024 History of Presen t [...] Excessive growth affecting management of mother, antepartum ([facility]) 12/06/2023 Third trimester ([facility]) 12/06/2023 No Additional Past Medical History [...] nursing note reviewed. Exam conducted with a surgical scrub technician present. Vitals: Estimated body mass index is 42.88 kg/m as calculated from the following: Height as of 01/10/24: 5' 7 . Weight as of this encounter: 273 lb 12.8 oz. BP: 122/74 No LMP recorded. Patient is . ASSESSMENT & PLAN ICD-10-CM 1. Third trimester ([facility]) Z34.93 POCT urinalysis dipstick manually resulted [...] routine OB appointment. documented in this encounter [facility] 12-13-2024 History of Presen t [...] Excessive growth affecting management of mother, antepartum ([facility]) 12/06/2023 Third trimester ([facility]) 12/06/2023 No Additional Past Medical History [...] of gestational diabetes Z86.32 3. Third trimester ([facility]) Z34.93 POCT urinalysis dipstick manually resulted 4. 28 weeks gestation of ([facility]) Z3A.28 POCT urinalysis dipstick manually resulted [...] Aditya Cervantes DO documented in this encounter [facility] 11-22-2024 History of Presen t [...] Excessive growth affecting management of mother, antepartum ([facility]) 12/06/2023 Third trimester ([facility]) 12/06/2023 No Additional Past Medical History [...] PLAN ICD-10-CM 1. 25 weeks gestation of ([facility]) Z3A.25 POCT urinalysis dipstick manually resulted 2. Second trimester ([facility]) Z34.92 POCT urinalysis dipstick manually resulted [...] for routine OB appointment. Documented by CAYLA wKok on behalf of: Aditya Cervantes DO documented in this encounter [facility] 10-25-2024 History of Presen t [...] for routine OB appointment. Documented by CAYLA wKok on behalf of: CAYLA Kwok documented in this encounter [facility] 09-26-2024 History of Presen t [...] nursing note reviewed. Exam conducted with a surgical scrub technician present. Vitals: Estimated body mass index is [...] Aditya Cervantes DO documented in this encounter [facility] 08-29-2024 History of Presen t [...] nursing note reviewed. Exam conducted with a surgical scrub technician present. Vitals: Estimated body mass index is [...] meat, and stay away from [facility]. Patient has been consulted regarding any further do's and don'ts of . Patient voiced understanding and all questions and concerns were answered. Orders Placed This Encounter Procedures POCT urinalysis dipstick manually resulted Follow Up: Patient is to return in 4 weeks for routine OB appointment. Documented by Lindsey Dong LPN on behalf of: Aditya Cervantes DO documented in this encounter [facility] 06-14-2024 History of Presen t [...] of: CAYLA Kwok documented in this encounter [facility] 05-17-2024 History of Presen t [...] of CAYLA Kwok documented in this encounter [facility] 04-18-2024 History of Presen t [...] of: CAYLA Kwok documented in this encounter [facility] 02-21-2024 History of Presen t [...] of: CAYLA Kwok documented in this encounter [facility] 07-15-2023 History of Presen t [...] Aditya Cervantes DO documented in this encounter [facility] 09-23-2020 Evaluation note Includes: Assessments for all patient encounters Findings Anxiety disorder NOS BH Telebehavioral H ealth with Jammie RODAS 09/23/2020 Assessment of visit for: screening for human immunodeficiency virus Medical Established Patient with Miguel Holley [facility] 09/23/2020 Diabetes Risk Test Score was three score 09/23/2020 Medical Established Patient with Miguel Holley [facility] 09/23/2020 Morbid obesity Medical Established Patient with Miguel Holley [facility] 09/23/2020 Routine adult history and physical (18-64 yrs) without abnormal findings Medical Established Patient with Miguel Holley [facility] 09/23/2020 Z68.41 - Body mass index [BMI]40.0-44.9, adult Medical Established Patient with Miguel Holley [facility] 09/23/2020 Cough Telemedicine Establi sted Patient with Miguel Holley [facility] 03/19/2020 Exposure to a viral disease Telemedicine Establisted Patient with Miguel Holley [facility] 03/19/2020 Obesity due to excess calories Telemedic ine Establisted Patient with Miguel Holley [facility] 03/19/2020 Z68.37 - Body mass index [BM I] 37.0-37.9, adult Telemedicine Establisted Patient with Miguel Holley [facility] 03/19/2020 Obesity due to excess calories Medical E stablished Patient with Miguel Holley [facility] 03/05/2020 Z68.37 - Body mass index [BM I] 37.0-37.9, adult Medical Established Patient with Miguel Holley [facility] 03/05/2020 Obesity due to excess calories Medical E stablished Patient with Poly Franco [facility] 12/05/2019 R21 - Rash and other nonspecific skin eruption Medical Established Patient with Polykamryn Wagonerle TELEVISION PRODUCTION TECHNICIAN 12/05/2019 Z68.35 - Body mass index (BM I) 35.0-35.9, adult Medical Established Patient with Poly Wagonerle TELEVISION PRODUCTION TECHNICIAN 12/05/2019 Obesity due to excess calories Medical E stablished Patient with Poly Salvador TELEVISION PRODUCTION TECHNICIAN 11/06/2019 Z68.36 - Body mass index (BM I) 36.0-36.9, adult Medical Established Patient with Poly Wagonerle [facility] 11/06/2019 Obesity due to excess calories Medical E stablished Patient with Poly Salvador [facility] 10/12/2019 Z68.38 - Body mass index (BM I) 38.0-38.9, adult Medical Established Patient with Polykamryn Wagonerle [facility] 10/12/2019 L25.5 - Unspecified contact dermatitis due to plants, except food Medical Established Patient with Polykamryn Wagonerle [facility] 09/14/2019 Obesity due to excess calories Medical E stablished Patient with Poly Salvador [facility] 09/14/2019 Z68.37 - Body mass index (BM I) 37.0-37.9, adult Medical Established Patient with Polykamryn Wagonerle [facility] 09/14/2019 L25.5 - Unspecified contact dermatitis due to plants, except food Telemedicine with Polykamryn Wagonerle [facility] 09/11/2019 Obesity due to excess calories Telemedic ine with Poly Salvador [facility] 09/11/2019 Z68.37 - Body mass index (BM I) 37.0-37.9, adult Telemedicine with Poly Wagonerle [facility] 09/11/2019 Dermatitis due to contact wi th poison spencer Telemedicine with Poly Wagonerle [facility] 09/05/2019 Obesity due to excess calories Telemedic ine with Poly Wagonerle [facility] 09/05/2019 Z68.37 - Body mass index (BM I) 37.0-37.9, adult Telemedicine with Poly Salvador TELEVISION PRODUCTION TECHNICIAN 09/05/2019 Obesity due to excess calories Medical E stablished Patient with Miguel Holley TELEVISION PRODUCTION TECHNICIAN 08/17/2019 Z68.37 - Body mass index (BM I) 37.0-37.9, adult Medical Established Patient with Miguel Holley TELEVISION PRODUCTION TECHNICIAN 08/17/2019 Generalized anxiety disorder BH Establis hed Patient with Anh FERNANDEZS 07/06/2019 Anxiety disorder NOS Medical New Patient with Allyson Floyd TELEVISION PRODUCTION TECHNICIAN 07/06/2019 Depression Medical New Patient with Allyson Floyd TELEVISION PRODUCTION TECHNICIAN 07/06/2019 Diabetes Risk Test Score was one score Medical New Patient with Allyson Floyd TELEVISION PRODUCTION TECHNICIAN 07/06/2019 Idiopathic insomnia Medical New Patient with Allyson Floyd TELEVISION PRODUCTION TECHNICIAN 07/06/2019 Obesity due to excess calories Medical N ew Patient with Allyson Floyd TELEVISION PRODUCTION TECHNICIAN 07/06/2019 Z68.39 - Body mass index (BM I) 39.0-39.9 adult Medical New Patient with Allyson Floyd CNP 07/06/2019 [facility] Work Phone: [phone]) 381-151406-08-2020 History general Narrative - Reported Includes: Medical History in patient's chart Description Last Updated Not currently nursing 11/06/2019 Not 11/06/2019 No reported medical history or no signif icant history 07/06/2019 [facility] Work Phone: Evaluation note Includes: Assessments for all patient encounters Findings Encounter Date Assessment of visit for: scr eening for human immunodeficiency virus Medical Established Patient with Miguel Holley TELEVISION PRODUCTION TECHNICIAN 09/23/2020 Diabetes Risk Test Score was three score 09/23/2020 Medical Established Patient with Miguel Holley TELEVISION PRODUCTION TECHNICIAN 09/23/2020 Morbid obesity Medical Established Patient with Miguel Holley TELEVISION PRODUCTION TECHNICIAN 09/23/2020 Routine adult history and ph ysical (18-64 yrs) without abnormal findings Medical Established Patient with Miguel Holley TELEVISION PRODUCTION TECHNICIAN 09/23/2020 Z68.41 - Body mass index [BMI]40.0-44.9, adult Medical Established Patient with Miguel Holley TELEVISION PRODUCTION TECHNICIAN 09/23/2020 Cough Telemedicine Establi sted Patient with Miguel Holley TELEVISION PRODUCTION TECHNICIAN 03/19/2020 Exposure to a viral disease Telemedicine Establisted Patient with Miguel Dell [facility] 03/19/2020 Obesity due to excess calories Telemedic ine Establisted Patient with Miguel Holley [facility] 03/19/2020 Z68.37 - Body mass index [BM I] 37.0-37.9, adult Telemedicine Establisted Patient with Miguel Holley [facility] 03/19/2020 Obesity due to excess calories Medical E stablished Patient with Miguel Holley [facility] 03/05/2020 Z68.37 - Body mass index [BM I] 37.0-37.9, adult Medical Established Patient with Miguel Holley [facility] 03/05/2020 Obesity due to excess calories Medical E stablished Patient with Poly Franco [facility] 12/05/2019 R21 - Rash and other nonspec [facility] skin eruption Medical Established Patient with Poly Franco [facility] 12/05/2019 Z68.35 - Body mass index (BM I) 35.0-35.9, adult Medical Established Patient with Poly Franco [facility] 12/05/2019 Obesity due to excess calories Medical E stablished Patient with Poly Wagonerle [facility] 11/06/2019 Z68.36 - Body mass index (BM I) 36.0-36.9, adult Medical Established Patient with Poly Franco [facility] 11/06/2019 Obesity due to excess calories Medical E stablished Patient with Poly Wagonerle [facility] 10/12/2019 Z68.38 - Body mass index (BM I) 38.0-38.9, adult Medical Established Patient with Poly Wagonerle [facility] 10/12/2019 L25.5 - Unspecified contact dermatitis due to plants, except food Medical Established Patient with Poly Franco [facility] 09/14/2019 Obesity due to excess calories Medical E stablished Patient with Poly Wagonerle [facility] 09/14/2019 Z68.37 - Body mass index (BM I) 37.0-37.9, adult Medical Established Patient with Poly Wagonerle [facility] 09/14/2019 L25.5 - Unspecified contact dermatitis due to plants, except food Telemedicine with Poly Franco [facility] 09/11/2019 Obesity due to excess calories Telemedicine with Poly Wagonerle [facility] 09/11/2019 Z68.37 - Body mass index (BM I) 37.0-37.9, adult Telemedicine with Poly Franco [facility] 09/11/2019 Dermatitis due to contact wi th poison spencer Telemedicine with Poly Franco [facility] 09/05/2019 Obesity due to excess calories Telemedicine with Poly Franco TELEVISION PRODUCTION TECHNICIAN 09/05/2019 Z68.37 - Body mass index (BM I) 37.0-37.9, adult Telemedicine with Poly Franco TELEVISION PRODUCTION TECHNICIAN 09/05/2019 Obesity due to excess calories Medical E stablished Patient with Miguel Holley TELEVISION PRODUCTION TECHNICIAN 08/17/2019 Z68.37 - Body mass index (BM I) 37.0-37.9, adult Medical Established Patient with Miguel Holley TELEVISION PRODUCTION TECHNICIAN 08/17/2019 Generalized anxiety disorder BH Establis hed Patient with Anh VIDAL 07/06/2019 Anxiety disorder NOS Medical New Patient with Allysonheidi Floyd TELEVISION PRODUCTION TECHNICIAN 07/06/2019 Depression Medical New Patient with Allyson Jones TELEVISION PRODUCTION TECHNICIAN 07/06/2019 Diabetes Risk Test Score was one score M edical New Patient with Allyson Everett TELEVISION PRODUCTION TECHNICIAN 07/06/2019 Idiopathic insomnia Medical New Patient with Allyson Jones TELEVISION PRODUCTION TECHNICIAN 07/06/2019 Obesity due to excess calories Medical N ew Patient with Allyson Jones TELEVISION PRODUCTION TECHNICIAN 07/06/2019 Z68.39 - Body mass index (BM I) 39.0-39.9 adult Medical New Patient with Allyson Floyd TELEVISION PRODUCTION TECHNICIAN 07/06/2019 [facility] Work Phone: Evaluation note* Diagnosis Nausea vomiting and diarrhea- Primary Nausea with vomiting Generalized abdominal pain Abdominal pain, generalized documented in this encounter [employer] Phone: evaluation note* Diagnosis Women's annual routine gynecological examination documented in this encounter [employer] Phone: evaluation note* Diagnosis Women's annual routine gynecological examination Intrauterine contraceptive device threads lost, initial encounter documented in this encounter [email or web address] HEALTHEvaluation note* Diagnosis Second trimester state, incidental [...] type No History of Present Illness [facility] Work Phone: Hospital Discharge instructions* Attachments The following attachments cannot be sent through Care Everywhere. * Abdominal Pain ([place]) * Nausea and Vomiting ([place]) * Diarrhea ([place]) [facility] Instructions Instructions not supported for this document type No Instructions [facility] Work Phone: Patient problem outcome Narrative Includes: Evaluations & Outcomes for active Goals No Outcomes [facility] Work Phone: Reason for referral (narrative)No Reason for Referral [facility] [employer] [facility] Work Phone: Review of systems Narrative - Reported Review of Systems not supported for this document type No Review of Systems [facility] [employer] 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 History Documents on File Type Date Recorded Patient Olive Knocker Expl anation ACP-Advance Directive ACP-Power of Associate Professor Of Art History Documents on File Type Date Recorded Patient Olive Knocker Expl anation Advance Directives and Living Will Power of Associate Professor Of Art History Date Activated Date Inactivated Comments 01/20/2023 7:21 [...] NOS Medical New Patient with Allyson Floyd TELEVISION PRODUCTION TECHNICIAN 07/06/2019 Depression Medical New Patient with Allyson Floyd TELEVISION PRODUCTION TECHNICIAN 07/06/2019 Diabetes Risk Test Score was one score Medical New Patient with Allyson Floyd TELEVISION PRODUCTION TECHNICIAN 07/06/2019 Idiopathic insomnia Medical New Patient with Allyson Floyd TELEVISION PRODUCTION TECHNICIAN 07/06/2019 Obesity due to excess calories Medical N ew Patient with Allyson Floyd TELEVISION PRODUCTION TECHNICIAN 07/06/2019 Z68.39 - Body mass index (BM I) 39.0-39.9 adult Medical New Patient with Allyson Floyd TELEVISION PRODUCTION TECHNICIAN 07/06/2019 Findings Encounter Date Obesity due to excess calories Medical E stablished Patient with Poly Franco [facility] 10/12/2019 Z68.38 - Body mass index (BM I) 38.0-38.9, adult Medical Established Patient with Poly Franco [facility] 10/12/2019 L25.5 - Unspecified contact dermatitis due to plants, except food Medical Established Patient with Poly Franco [facility] 09/14/2019 Obesity due to excess calories Medical E stablished Patient with Poly Wagonerle [facility] 09/14/2019 Z68.37 - Body mass index (BM I) 37.0-37.9, adult Medical Established Patient with Poly Franco [facility] 09/14/2019 L25.5 - Unspecified contact dermatitis due to plants, except food Telemedicine with Poly Franco [facility] 09/11/2019 Obesity due to excess calories Telemedicine with Poly Franco [facility] 09/11/2019 Z68.37 - Body mass index (BM I) 37.0-37.9, adult Telemedicine with Poly [facility] 09/11/2019 Dermatitis due to contact wi th poison spencer [facility] Obesity due to excess calories [facility] 09/05/2019 Z68.37 - Body mass index (BM I) 37.0-37.9, adult Telemedicine with Poly Franco [facility] 09/05/2019 Obesity due to excess calories Medical E stablished Patient with Miguel Holley [facility] 08/17/2019 Z68.37 - Body mass index (BM I) 37.0-37.9, adult Medical Established Patient with Miguel Holley [facility] 08/17/2019 Generalized anxiety disorder BH Establis hed Patient with Anh VIDAL 07/06/2019 Anxiety disorder NOS Medical New Patient with Allyson Floyd TELEVISION PRODUCTION TECHNICIAN 07/06/2019 Depression Medical New Patient with Allyson Floyd TELEVISION PRODUCTION TECHNICIAN 07/06/2019 Diabetes Risk Test Score was one score Medical New Patient with Allyson Floyd TELEVISION PRODUCTION TECHNICIAN 07/06/2019 Idiopathic insomnia Medical New Patient with Allyson Floyd TELEVISION PRODUCTION TECHNICIAN 07/06/2019 Obesity due to excess calories Medical N ew Patient with Allyson Floyd TELEVISION PRODUCTION TECHNICIAN 07/06/2019 Z68.39 - Body mass index (BM I) 39.0-39.9 adult Medical New Patient with Allyson Floyd TELEVISION PRODUCTION TECHNICIAN 07/06/2019 Findings Encounter Date Obesity due to excess calories Medical E stablished Patient with Miguel Holley TELEVISION PRODUCTION TECHNICIAN 08/17/2019 Z68.37 - Body mass index (BM I) 37.0-37.9, adult Medical Established Patient with Miguel Holley TELEVISION PRODUCTION TECHNICIAN 08/17/2019 Generalized anxiety disorder BH Establis hed 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 07/06/2019 Anxiety disorder NOS Medical New Patient with Allyson Everett TELEVISION PRODUCTION TECHNICIAN 07/06/2019 Depression Medical New Patient with Allyson Floyd TELEVISION PRODUCTION TECHNICIAN 07/06/2019 Diabetes Risk Test Score was one score Medical New Patient with Allyson Floyd TELEVISION PRODUCTION TECHNICIAN 07/06/2019 Idiopathic insomnia Medical New Patient with Allyson Floyd TELEVISION PRODUCTION TECHNICIAN 07/06/2019 Obesity due to excess calories Medical N ew Patient with Allyson Floyd TELEVISION PRODUCTION TECHNICIAN 07/06/2019 Z68.39 - Body mass index (BM I) 39.0-39.9 adult Medical New Patient with Allyson Floyd TELEVISION PRODUCTION TECHNICIAN 07/06/2019 Findings Encounter Date Dermatitis due to contact wi th poison spencer Telemedicine with Poly Franco [facility] 09/05/2019 Obesity due to excess calories Telemedicine with Poly Franco [facility] 09/05/2019 Z68.37 - Body mass index (BM I) 37.0-37.9, adult Telemedicine with Poly Franco [facility] 09/05/2019 Obesity due to excess calories Medical E stablished Patient with [facility] [facility] 08[facility]17/2019 Z68.37 - Body mass index (BM I) 37.0-37.9, adult Medical Established Patient with Miguel Hloley TELEVISION PRODUCTION TECHNICIAN 08/17/2019 Generalized anxiety disorder BH Establis hed 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 07/06/2019 Anxiety disorder NOS Medical New Patient with Allyson Floyd TELEVISION PRODUCTION TECHNICIAN 07/06/2019 Depression Medical New Patient with Allyson Everett TELEVISION PRODUCTION TECHNICIAN 07/06/2019 Diabetes Risk Test Score was one score Medical New Patient with Allyson Everett TELEVISION PRODUCTION TECHNICIAN 07/06/2019 Idiopathic insomnia Medical New Patient with Allyson Jones TELEVISION PRODUCTION TECHNICIAN 07/06/2019 Obesity due to excess calories Medical N ew Patient with Allyson Floyd TELEVISION PRODUCTION TECHNICIAN 07/06/2019 Z68.39 - Body mass index (BM I) 39.0-39.9 adult Medical New Patient with Allyson Floyd TELEVISION PRODUCTION TECHNICIAN 07/06/2019 Findings Encounter Date L25.5 - Unspecified contact dermatitis due to plants, except food Telemedicine with Poly Franco [facility] 09/11/2019 Obesity due to excess calories Telemedicine with Poly Franco [facility] 09/11/2019 Z68.37 - Body mass index (BM I) 37.0-37.9, adult Telemedicine with Poly Franco [facility] 09/11/2019 Dermatitis due to contact wi th poison spencer Telemedicine with Poly Franco [facility] 09/05/2019 Obesity due to excess calories [facility] Z68.37 - Body mass index (BM I) 37.0-37.9, adult Telemedicine with Poly Franco [facility] 09/05/2019 Obesity due to excess calories Medical E stablished Patient with Miguel Holley [facility] 08/17/2019 Z68.37 - Body mass index (BM I) 37.0-37.9, adult Medical Established Patient with Miguel Holley [facility] 08/17/2019 Generalized anxiety disorder BH Establis hed Patient with Anh VIDAL 07/06/2019 Anxiety disorder NOS Medical New Patient with Allyson Floyd [facility] 07/06/2019 Depression Medical New Patient with Allyson Floyd [facility] 07/06/2019 Diabetes Risk Test Score was one score Medical New Patient with Allyson Floyd [facility] 07/06/2019 Idiopathic insomnia Medical New Patient with Allyson Floyd [facility] 07/06/2019 Obesity due to excess calories Medical N ew Patient with Allyson Floyd [facility] 07/06/2019 Z68.39 - Body mass index (BM I) 39.0-39.9 adult Medical New Patient with Allyson Floyd [facility] 07/06/2019 Findings Encounter Date L25.5 - Unspecified contact dermatitis due to plants, except food Medical Established Patient with Poly Franco [facility] 09/14/2019 Obesity due to excess calories Medical E stablished Patient with Poly Franco [facility] 09/14/2019 Z68.37 - Body mass index (BM I) 37.0-37.9, adult Medical Established Patient with Poly Franco [facility] 09/14/2019 L25.5 - Unspecified contact dermatitis due to plants, except food Telemedicine with Poly Franco [facility] 09/11/2019 Obesity due to excess calories Telemedicine with Poly Franco [facility] 09/11/2019 Z68.37 - Body mass index (BM I) 37.0-37.9, adult Telemedicine with Poly Franco [facility] 09/11/2019 Dermatitis due to contact wi th poison spencer Telemedicine with Poly Franco [facility] 09/05/2019 Obesity due to excess calories [facility]/05/2019 Z68.37 - Body mass index (BM I) 37.0-37.9, adult Telemedicine with Poly Franco [facility] 09/05/2019 Obesity due to excess calories Medical E stablished Patient with Miguel Holley [facility] 08/17/2019 Z68.37 - Body mass index (BM I) 37.0-37.9, adult Medical Established Patient with Miguel Holley [facility] 08/17/2019 Generalized anxiety disorder BH Establis hed Patient with Anh VIDAL 07/06/2019 Anxiety disorder NOS Medical New Patient with Allyson Everett [facility] 07/06/2019 Depression Medical New Patient with Allyson Jones [facility] 07/06/2019 Diabetes Risk Test Score was one score Medical New Patient with Allyson Jones TELEVISION PRODUCTION TECHNICIAN 07/06/2019 Idiopathic insomnia Medical New Patient with Allyson Jones TELEVISION PRODUCTION TECHNICIAN 07/06/2019 Obesity due to excess calories Medical N ew Patient with Allyson Jones [facility] 07/06/2019 Z68.39 - Body mass index (BM I) 39.0-39.9 adult Medical New Patient with Allyson Nye [facility] 07/06/2019 Findings Encounter Date Obesity due to excess calories Medical E stablished Patient with Poly Franco [facility] 11/06/2019 Z68.36 - Body mass index (BM I) 36.0-36.9, adult Medical Established Patient with Poly Franco [facility] 11/06/2019 Obesity due to excess calories Medical E stablished Patient with Poly Wagonerle [facility] 10/12/2019 Z68.38 - Body mass index (BM I) 38.0-38.9, adult Medical Established Patient with Poly Franco [facility] 10/12/2019 L25.5 - Unspecified contact dermatitis due to plants, except food Medical Established Patient with Poly Franco TELEVISION PRODUCTION TECHNICIAN 09/14/2019 Obesity due to excess calories Medical E stablished Patient with Poly Franco [facility] 09/14/2019 Z68.37 - Body mass index (BM I) 37.0-37.9, adult Medical Established Patient with Poly Franco [facility] 09/14/2019 L25.5 - Unspecified contact dermatitis due to plants, except food Telemedicine with Poly Franco [facility] 09/11/2019 Obesity due to excess calories Telemedicine with Poly Franco [facility] 09/11/2019 Z68.37 - Body mass index (BM I) 37.0-37.9, adult Telemedicine with Poly Franco [facility] 09/11/2019 Dermatitis due to contact wi th poison spencer Telemedicine with Poly Franco [facility] 09/05/2019 Obesity due to excess calories Telemedicine with Poly Franco [facility] 09/05/2019 Z68.37 - Body mass index (BM I) 37.0-37.9, adult Telemedicine with Poly Franco [facility] 09/05/2019 Obesity due to excess calories Medical E stablished Patient with Miguel Holley [facility] 08/17/2019 Z68.37 - Body mass index (BM I) 37.0-37.9, adult Medical Established Patient with Miguel Holley [facility] 08/17/2019 Generalized anxiety disorder BH Establis hed Patient with Anh VIDAL 07/06/2019 Anxiety disorder NOS Medical New Patient with Allyson Floyd [facility] 07/06/2019 Depression Medical New Patient with Allyson Everett [facility] 07/06/2019 Diabetes Risk Test Score was one score Medical New Patient with Allyson Jones TELEVISION PRODUCTION TECHNICIAN 07/06/2019 Idiopathic insomnia Medical New Patient with Allyson Jones TELEVISION PRODUCTION TECHNICIAN 07/06/2019 Obesity due to excess calories Medical N ew Patient with Allyson Everett TELEVISION PRODUCTION TECHNICIAN 07/06/2019 Z68.39 - Body mass index (BM I) 39.0-39.9 adult Medical New Patient with Allyson Everett TELEVISION PRODUCTION TECHNICIAN 07/06/2019 Findings Encounter Date Obesity due to excess calories Medical E stablished Patient with Poly Franco TELEVISION PRODUCTION TECHNICIAN 12/05/2019 R21 - Rash and other nonspec ific skin eruption Medical Established Patient with Poly Franco TELEVISION PRODUCTION TECHNICIAN 12/05/2019 Z68.35 - Body mass index (BM I) 35.0-35.9, adult Medical Established Patient with Poly Franco TELEVISION PRODUCTION TECHNICIAN 12/05/2019 Obesity due to excess calories Medical E stablished Patient with Poly Wagonerle TELEVISION PRODUCTION TECHNICIAN 11/06/2019 Z68.36 - Body mass index (BM I) 36.0-36.9, adult Medical Established Patient with Poly Wagonerle TELEVISION PRODUCTION TECHNICIAN 11/06/2019 Obesity due to excess calories Medical E stablished Patient with Poly Wagonerle [facility] 10/12/2019 Z68.38 - Body mass index (BM I) 38.0-38.9, adult Medical Established Patient with Polykamryn Wagonerle TELEVISION PRODUCTION TECHNICIAN 10/12/2019 L25.5 - Unspecified contact dermatitis due to plants, except food Medical Established Patient with Poly Wagonerle [facility] 09/14/2019 Obesity due to excess calories Medical E stablished Patient with Poly Salvador [facility] 09/14/2019 Z68.37 - Body mass index (BM I) 37.0-37.9, adult Medical Established Patient with Poly Franco [facility] 09/14/2019 L25.5 - Unspecified contact dermatitis due to plants, except food Telemedicine with Poly Franco [facility] 09/11/2019 Obesity due to excess calories Telemedicine with Poly Wagonerle [facility] 09/11/2019 Z68.37 - Body mass index (BM I) 37.0-37.9, [facility] Dermatitis due to contact wi th poison spencer [facility]/05/2019 Obesity due to excess calories [facility] 09/05/2019 Z68.37 - Body mass index (BM I) 37.0-37.9, adult Telemedicine with Poly Frnaco [facility] 09/05/2019 Obesity due to excess calories Medical E stablished Patient with Miguel Holley [facility] 08/17/2019 Z68.37 - Body mass index (BM I) 37.0-37.9, adult Medical Established Patient with Miguel Holley [facility] 08/17/2019 Generalized anxiety disorder BH Establis hed Patient with Anh VIDAL 07/06/2019 Anxiety disorder NOS Medical New Patient with Allyson Floyd TELEVISION PRODUCTION TECHNICIAN 07/06/2019 Depression Medical New Patient with Allyson Everett TELEVISION PRODUCTION TECHNICIAN 07/06/2019 Diabetes Risk Test Score was one score Medical New Patient with Allyson Jones TELEVISION PRODUCTION TECHNICIAN 07/06/2019 Idiopathic insomnia Medical New Patient with Allyson Floyd TELEVISION PRODUCTION TECHNICIAN 07/06/2019 Obesity due to excess calories Medical N ew Patient with Allyson Floyd TELEVISION PRODUCTION TECHNICIAN 07/06/2019 Z68.39 - Body mass index (BM I) 39.0-39.9 adult Medical New Patient with Allyson Floyd TELEVISION PRODUCTION TECHNICIAN 07/06/2019 Findings Encounter Date Obesity due to excess calories Medical E stablished Patient with Miguel Holley TELEVISION PRODUCTION TECHNICIAN 03/05/2020 Z68.37 - Body mass index [BM I] 37.0-37.9, adult Medical Established Patient with Miguel Holley TELEVISION PRODUCTION TECHNICIAN 03/05/2020 Obesity due to excess calories Medical E stablished Patient with Poly Franco TELEVISION PRODUCTION TECHNICIAN 12/05/2019 R21 - Rash and other nonspec [facility] skin eruption Medical Established Patient with Poly Wagonerle TELEVISION PRODUCTION TECHNICIAN 12/05/2019 Z68.35 - Body mass index (BM I) 35.0-35.9, adult Medical Established Patient with Poly Franco TELEVISION PRODUCTION TECHNICIAN 12/05/2019 Obesity due to excess calories Medical E stablished Patient with Poly Salvador TELEVISION PRODUCTION TECHNICIAN 11/06/2019 Z68.36 - Body mass index (BM I) 36.0-36.9, adult Medical Established Patient with Polykamryn Wagonerle TELEVISION PRODUCTION TECHNICIAN 11/06/2019 Obesity due to excess calories Medical E stablished Patient with Poly Salvador TELEVISION PRODUCTION TECHNICIAN 10/12/2019 Z68.38 - Body mass index (BM I) 38.0-38.9, adult Medical Established Patient with Polykamryn Wagonerle TELEVISION PRODUCTION TECHNICIAN 10/12/2019 L25.5 - Unspecified contact dermatitis due to plants, except food Medical Established Patient with Polykamryn Wagonerle TELEVISION PRODUCTION TECHNICIAN 09/14/2019 Obesity due to excess calories Medical E stablished Patient with Poly Salvador TELEVISION PRODUCTION TECHNICIAN 09/14/2019 Z68.37 - Body mass index (BM I) 37.0-37.9, adult Medical Established Patient with Poly Salvador TELEVISION PRODUCTION TECHNICIAN 09/14/2019 L25.5 - Unspecified contact dermatitis due to plants, except food Telemedicine with Poly Wagonerle TELEVISION PRODUCTION TECHNICIAN 09/11/2019 Obesity due to excess calories Telemedicine with Poly Wagonerle [facility] 09/11/2019 Z68.37 - Body mass index (BM I) 37.0-37.9, adult Telemedicine with oPly Franco [facility] 09/11/2019 Dermatitis due to contact wi th poison spencer Telemedicine with Poly Franco [facility] 09/05/2019 Obesity due to excess calories Telemedicine with Poly Franco [facility] 09/05/2019 Z68.37 - Body mass index (BM I) 37.0-37.9, adult Telemedicine with Poly Franco TELEVISION PRODUCTION TECHNICIAN 09/05/2019 Obesity due to excess calories Medical E stablished Patient with Miguel Holley [facility] 08/17/2019 Z68.37 - Body mass index (BM I) 37.0-37.9, adult Medical Established Patient with Miguel Holley TELEVISION PRODUCTION TECHNICIAN 08/17/2019 Generalized anxiety disorder BH Establis hed Patient with Anh VIDAL 07/06/2019 Anxiety disorder NOS Medical New Patient with Allyson Nye TELEVISION PRODUCTION TECHNICIAN 07/06/2019 Depression Medical New Patient with Allyson Nye TELEVISION PRODUCTION TECHNICIAN 07/06/2019 Diabetes Risk Test Score was one score Medical New Patient with Allyson Nye TELEVISION PRODUCTION TECHNICIAN 07/06/2019 Idiopathic insomnia Medical New Patient with Allyson Nye TELEVISION PRODUCTION TECHNICIAN 07/06/2019 Obesity due to excess calories Medical N ew Patient with Allyson Nye TELEVISION PRODUCTION TECHNICIAN 07/06/2019 Z68.39 - Body mass index (BM I) 39.0-39.9 adult Medical New Patient with Allysonhiedi Floyd TELEVISION PRODUCTION TECHNICIAN 07/06/2019 Findings Encounter Date Cough Telemedicine Establi sted Patient with Miguel Holley [facility] 03/19/2020 Exposure to a viral disease Telemedicine Establisted Patient with Miguel Holley [facility] 03/19/2020 Obesity due to excess calories Telemedic ine Establisted Patient with Miguel Holley [facility] 03/19/2020 Z68.37 - Body mass index [BM I] 37.0-37.9, adult Telemedicine Establisted Patient with Miguel Holley [facility] 03/19/2020 Obesity due to excess calories Medical E stablished Patient with Miguel Holley [facility] 03/05/2020 Z68.37 - Body mass index [BM I] 37.0-37.9, adult Medical Established Patient with Miguel Holley [facility] 03/05/2020 Obesity due to excess calories Medical E stablished Patient with Poly Franco TELEVISION PRODUCTION TECHNICIAN 12/05/2019 R21 - Rash and other nonspec ific skin eruption Medical Established Patient with Poly Franco [facility] 12/05/2019 Z68.35 - Body mass index (BM I) 35.0-35.9, adult Medical Established Patient with Poly Franco TELEVISION PRODUCTION TECHNICIAN 12/05/2019 Obesity due to excess calories Medical E stablished Patient with Poly Wagonerle TELEVISION PRODUCTION TECHNICIAN 11/06/2019 Z68.36 - Body mass index (BM I) 36.0-36.9, adult Medical Established Patient with Poly Wagonerle TELEVISION PRODUCTION TECHNICIAN 11/06/2019 Obesity due to excess calories Medical E stablished Patient with Poly Wagonerle TELEVISION PRODUCTION TECHNICIAN 10/12/2019 Z68.38 - Body mass index (BM I) 38.0-38.9, adult Medical Established Patient with Polykamryn Wagonerle TELEVISION PRODUCTION TECHNICIAN 10/12/2019 L25.5 - Unspecified contact dermatitis due to plants, except food Medical Established Patient with Poly Wagonerle TELEVISION PRODUCTION TECHNICIAN 09/14/2019 Obesity due to excess calories Medical E stablished Patient with Poly Salvador [facility] 09/14/2019 Z68.37 - Body mass index (BM I) 37.0-37.9, adult Medical Established Patient with Poly Franco [facility] 09/14/2019 L25.5 - Unspecified contact dermatitis due to plants, except food Telemedicine with Poly Franco [facility] 09/11/2019 Obesity due to excess calories Telemedicine with Poly Wagonerle [facility] 09/11/2019 Z68.37 - Body mass index (BM I) 37.0-37.9, adult [facility] Dermatitis due to contact wi th poison spencer Telemedicine with Poly Franco [facility] 09/05/2019 Obesity due to excess calories Telemedicine with Poly Wagonerle [facility] 09/05/2019 Z68.37 - Body mass index (BM I) 37.0-37.9, adult Telemedicine with Poly Franco [facility] 09/05/2019 Obesity due to excess calories Medical E stablished Patient with Miguel Holley [facility] 08/17/2019 Z68.37 - Body mass index (BM I) 37.0-37.9, adult Medical Established Patient with Miguel Holley [facility] 08/17/2019 Generalized anxiety disorder BH Establis hed Patient with Anh VIDAL 07/06/2019 Anxiety disorder NOS Medical New Patient with Allyson Floyd TELEVISION PRODUCTION TECHNICIAN 07/06/2019 Depression Medical New Patient with Allyson Jones TELEVISION PRODUCTION TECHNICIAN 07/06/2019 Diabetes Risk Test Score was one score Medical New Patient with Allyson Everett TELEVISION PRODUCTION TECHNICIAN 07/06/2019 Idiopathic insomnia Medical New Patient with Allyson Floyd [facility] 07/06/2019 Obesity due to excess calories Medical N ew Patient with Allyson Floyd [facility] 07/06/2019 Z68.39 - Body mass index (BM I) 39.0-39.9 adult Medical New Patient with Allyson Floyd [facility] 07/06/2019 Diagnosis COVID-19 Fatty liver Other chronic [...] Everywhere. * Coronavirus Disease (COVID-19): General Info ([place]) documented in this encounter Additional Source Comments INFORMATION SOURCE (unrecogn ized section and content) DATE CREATED AUTHOR 11/24/2017 [facility] DATE CREATED AUTHOR AUTHOR'S ORGANIZ ATION 08/26/2018 [facility] DATE CREATED AUTHOR AUTHOR'S ORGANIZ ATION 09/24/2020 [facility] DATE CREATED AUTHOR AUTHOR'S ORGANIZ ATION 10/30/2024 [facility] DATE CREATED AUTHOR AUTHOR'S ORGANIZ ATION 02/08/[address] [facility] dical Specialists EPIC Evaluations & Outcomes [...] US TRANSVAGINAL, NON OB Dana Akins MD [address] [place] [id number] [facility] [address] [place] [address] Reason Comments Emesis multiple episodes si nce [...] Care Teams (unrecognized sec tion and content) [employer] Relationship Specialty Start Date End Date Miguel Holley APRN - CNP PCP - General Family Medicine 04/08/20 [employer] Relationship Specialty Start Date End Date Miguel Holley APRN - CNP PCP - General Family Medicine 04/08/20 [employer] Relationship Specialty Start Date End Date Miguel Holley APRN - DIANELYS PCP - General Family Medicine 04/08/20 [employer] P[employer] Relationship Specialty Start Date End Date Miguel [...] BE BASED ON THE PRIMARY CLINICAL RECORDS. [facility] [employer] [facility]. provides no warranty or guarantee of the accuracy or completeness of information in this document.
[2025-02-13 08:40] VITALS: BP 110/68; PULSE 94
== END 2025-02-13 09:05 | disposition home or self-care (01) ==
LOC: US 08:05 → FBC 08:07
PROVIDERS: Visit Provider Obstetrics & Gynecology
DX: O99.810 Abnormal glucose complicating pregnancy (principal); Z3A.00 Weeks of gestation of pregnancy not specified
CPT/HCPCS: 76818

== ENCOUNTER 2025-02-16 09:04 | Outpatient (OUT) | payer MEDICAID, SELFPAY ==
--- NOTE | 2025-02-16 09:06 | US_ITS ---
[facility] [place] [id number] Patient Name: TARA FLOREZ MRN: [id number] date: 1995 Sex: F Assigned Patient Location: [facility] Current Patient Location: [facility] Accession/Order Number: [id number] Exam Date: 02/16/2025 09:10 Report Date: 02/16/2025 09:59 At the request of: BRUCE CARD DO Procedure: US OB BPP w non-stress BIOPHYSICAL PROFILE: CLINICAL INFORMATION: Hyperglycemia during COMPARISON: 02/12/2025 There is a single live intrauterine gestation in cephalic presentation. The reported gestational age is 37 weeks 3 days. The heart rate measures 131 beats per minute. FINDINGS: TONE: 1 or more episodes of activity extension and flexion of extremity or opening and closing of the hand [Y] 2/2 GROSS BODY MOVEMENTS: 3 or more discrete body or limb movements [Y] 2/2 BREATHING MOVEMENTS: 1 or more episodes of breathing lasting at least 30 seconds [Y] 2/2 DEE: A single deepest vertical pocket of amniotic fluid greater than 2 cm [Y] 2/2 DEE: 18.3 cm . This is in upper normal range. Total score: 8/8 US/ OB BPP w non-stress IMPRESSION: NORMAL BIOPHYSICAL PROFILE Impression dictated by: Lindsey Bright M.D. 02/16/2025 9:59 AM Dictation [facility] Electronically authenticated by: [id number] Y Date: 02/16/2025 09:59
--- OUTSIDE RECORDS SUMMARY | 2025-02-16 09:10 | XMS_ITS | CCD ---
Author Organization [facility] [employer] Care Team Providers Care Piano Teacher Name Role Phone NO FAMILY PHYSICIAN, 837 Unavailable Unavail able FELIX GALVAN Unavailable Unavailable Miguel Holley Primary Care Provider Jackson Haas Primary Care Provider Miguel Holley Primary Care Provider Miguel Holley Primary Care Provider [phone] Miguel Holley CNP Primary Care Provider Dell APPAREL PATTERNMAKER - DIANELYS, Miguel Berry Primary Care Provider MIGUEL HOLLEY Referring Unavailable MIGUEL HOLLEY Primary Care Unavailable Dell APPAREL PATTERNMAKER - DIANELYS, Miguel Berry Primary Care Provider Dell APPAREL PATTERNMAKER - DIANELYS, Miguel Berry Primary Care Provider Shona Lucio Primary Care Physician Yeison Holley APPAREL PATTERNMAKER - PRE BILLING CLINICIAN, Miguel Berry Primary Care Provider Dell APPAREL PATTERNMAKER - Miguel IVORY Primary Care Provider Unavailable Primary Care Provider UnavailADITYA Hernandez Referring Unavailable MIGUEL HOLLEY Primary Care Unavailable BILLY, ADITYA Attending Unavailable BILLY, ADITYA [...] Translations: [TRIAMCINOLONE ACETONIDE] Drug Allergy 10-12-[address] [facility] Repository (16 sources) Triamcinolone; Translations: [Kenalog] Drug Allergy 07-06-19 [facility] Work Phone: (20 sources) Triamcinolone Drug Allergy 10-14-19 14 Other (See Comments), Other, Hives [place], [place] (17 sources) Poison spencer Allergy to substance 07-20-19 [facility] Work Phone: (3 sources) buPROPion; Translations: [Wellbutrin SR 100 MG Oral Tablet Extended Release 12 Hour] Drug Allergy 03-05-20 20 Wellbutrin SR [facility] Work Phone: (3 sources) Naltrexone; Translations: [Naltrexone HCl 50 MG Oral Tablet] Drug Allergy 03-05-20 20 Naltrexone HCl [facility] Work Phone: (20 sources) Other Propensity [...] Glucose Sensor (Dexcom G6 Sensor) [facility] ([place] sources) Start: 02-12-2025 Continuous Glucose Sensor (Dexcom G6 Sensor) [facility] Indications: Gestational diabetes mellitus (GDM), antepartum, gestational diabetes method of control unspecified ([facility]) , Elevated glucose tolerance test , 28 weeks gestation of ([facility]) 1 each Every 10 (ten) days 3 each 3 02/12/2025 Active Start: 01-18-2025 Continuous Glu cose Sensor (Dexcom G6 Sensor) [facility] Indications: Elevated glucose tolerance test , 28 weeks gestation of ([facility]) , Gestational diabetes mellitus (GDM), antepartum, gestational diabetes method of control unspecified ([facility]) 1 each Every 10 (ten) days 3 each 3 01/18/2025 Active Start: 12-13-2024 Continuous Glu cose Sensor (Dexcom G6 Sensor) [facility] [place]ications: Elevated glucose tolerance test , 28 weeks gestation of ([facility]) , Gestational diabetes mellitus (GDM), antepartum, gestational diabetes method of control unspecified ([facility]) 1 each Every 10 (ten) days 3 each 3 12/13/2024 Active Continuous Glucose Transmitt er (Dexcom G6 transmitter) [facility] ([place] sources) Start: 12-19-2024 Continuous Glu cose Transmitter (Dexcom G6 transmitter) [facility] Indications: Gestational diabetes mellitus (GDM), antepartum, gestational diabetes method of control unspecified ([facility]) Use as instructed 1 each 12/19/2024 [...] ibuprofen 800 MG tablet 01/06/2024 Active levonorgestrel 0.170056 mg/hr intrauterine system (17 sources) Progestin, Progestin-containin g Intrauterine Device Start : 07-20 Mirena (52 MG) 20 MCG/24HR Intrauterine Intrauterine device 07/20/2019 Provider: 24 hr metFORMIN hydrochloride 500 mg extended release oral tablet (20 sources) Biguanide Start : 06-14 End: 06-14 take 1 tablet by mouth every twenty-four hours at mealtime metFORMIN XR (Glucophage-XR) 500 MG 24 hr tablet Indications: Hyperglycemia during ([facility]) Take 1 tablet (500 mg) by mouth [...] supervision of normal first in first trimester ([facility]) Take 1 tablet by mouth Daily [...] tolerance complicating ; childbirth; or the puerperium (16 sources) History of gestational diabetes mellitus; Translations: [...] [36 weeks gestation of ] 02-06-2025 Episodic Residual codes; unclassified (2 sources) Gestation period, 37 weeks; Translations: [37 weeks gestation of ] 02-13-2025 Episodic Unclassified (1 source) Patient encounter status; [...] Facility US OB BPP W NON-STRESS on 02-13-2025 [place] [address] Ultrasound Report Signed Patient: ESTEFANIA CEDEÑO MR#: [id number] : 1995 Acct:[id number] Age/Sex: 29 / F ADM Date: 02/13/25 Loc: US Attending Dr: Aditya Cervantes D.O. Ordering Physician: Aditya Cervantes D.O. Date of Service: 02/13/25 Procedure(s): US OB BPP w non-stress Accession Number(s): [id number] cc: Aditya Cervantes D.O.; Physician,Non-Staff MSirena The [place] [id number] Patient Name: ESTEFANIA CEDEÑO MRN: [facility]:[id number] date: 1995 Sex: F Assigned Patient Location: US Current Patient Location: Accession/Order Number: [id number] Exam Date: 02/13/2025 08:08 Report Date: 02/13/2025 10:03 At the request of: ADITYA CERVANTES DO Procedure: US OB BPP w non-stress BIOPHYSICAL PROFILE: CLINICAL INFORMATION: Hyperglycemia during COMPARISON: 02/09/2025 There is a single live intrauterine gestation in cephalic presentation. The reported gestational age is 37 weeks 0 days. The heart rate measures 142 beats per minute. FINDINGS: TONE: 1 or [...] greater than 2 cm [Y] 2/2 DEE: 14.8 cm Total score: 8/8 US/US OB BPP w non-stress IMPRESSION: NORMAL BIOPHYSICAL PROFILE Impression dictated by: Lindsey Bright M.D. 02/13/2025 10:03 AM Dictation Location: [place] [address] Electronically authenticated by: [id number] Y Date: 02/13/2025 10:03 Dictated By: Lindsey Bright M.D. Signed By: 02/13/25 1006 DD/ 1003 TD/TT: Reinforcer: [facility] Radiology, Radiologi MD raymond - 02/13/2025 [place] [address] Ultrasound Report Signed Patient: ESTEFANIA CEDEÑO MR#: [id number] : 1995 Acct:[id number] Age/Sex: 29 / F ADM Date: 02/13/25 Loc: US Attending Dr: Aditya Cervantes D.O. Ordering Physician: Aditya Cervantes D.O. Date of Service: 02/13/25 Procedure(s): US OB BPP w non-stress Accession Number(s): [id number] cc: Aditya Cervantes D.O.; Physician,Non-Staff Roberto The [address] [address] Patient Name: ESTEFANIA CEDEÑO MRN: [facility]:[id number] date: 1995 Sex: F Assigned Patient Location: US Current Patient Location: Accession/Order Number: [id number] Exam Date: 02/13/2025 08:08 Report Date: 02/13/2025 10:03 At the request of: ADITYA CERVANTES DO Procedure: US OB BPP w non-stress BIOPHYSICAL PROFILE: CLINICAL INFORMATION: Hyperglycemia during COMPARISON: 02/09/2025 There is a single live intrauterine gestation in cephalic presentation. The reported gestational age is 37 weeks 0 days. The heart rate measures 142 beats per minute. FINDINGS: TONE: 1 or [...] greater than 2 cm [Y] 2/2 DEE: 14.8 cm Total score: 8/8 US/ OB BPP w non-stress IMPRESSION: NORMAL BIOPHYSICAL PROFILE Impression dictated by: Lindsey Bright M.D. 02/13/2025 10:03 AM Dictation Location: [employer] Electronically authenticated by: [id number] Y Date: 02/13/2025 10:03 Dictated By: Lindsey Bright M.D. Signed By: 02/13/25 1006 DD/ 1003 TD/TT: Reinforcer: [facility] Radiology Study observation (narrative) [facility] OB BPP W NON-STRESS Ordered By: Radiologist Radiology on 02-13-2025 [facility] Work Phone: Urinalysis macro (dipstick) panel (U)on 02-13-2025 Bilirubin, UA Negative Negative - 4(70) +++ mg/dL [facility] Blood, UA Negative Negative - 50 Chuy/mcL [facility] Clarity, UA Cloudy [facility] Color, UA Straw [facility] Glucose, UA Negative Negative - 2000(110) ++++ mg/dL [facility] Interpretation and review of laboratory results Normal [facility] Ketones, UA Negative Negative - 160(16) ++++ mg/dL [facility] Leukocytes, UA Negative Negative - 500+++ Sadi/mcL [facility] Nitrite, UA Negative Negative - Positive [facility] pH, UA 6.5 5 - 9 [facility] Protein, UA Negative Negative - 2000(20) ++++ mg/dL [facility] Spec Grav, UA 1.015 1 - 1.03 [facility] Urobilinogen, UA 1.0 0.2 - 12 mg/dL [facility] US OB BPP W NON-STRESS on 02-09-2025 [place] [address] Ultrasound Report Signed Patient: ESTEFANIA CEDEÑO MR#: [id number] : 1995 Acct:[id number] Age/Sex: 29 / F ADM Date: 02/09/25 Loc: US Attending Dr: Aditya Cervantes D.O. Ordering Physician: Aditya Cervantes D.O. Date of Service: 02/09/25 Procedure(s): US OB BPP w non-stress Accession Number(s): [id number] cc: Aditya Cervantes D.O.; Physician,Non-Staff M.Aminata [facility] [place] [id number] Patient Name: ESTEFANIA CEDEÑO MRN: [id number] date: 1995 Sex: F Assigned Patient Location: [facility] Current Patient Location: Accession/Order Number: [id number] Exam Date: 02/09/2025 09:15 Report Date: 02/09/2025 10:39 At the request of: ADITYA CERVANTES DO Procedure: US OB BPP w non-stress BIOPHYSICAL PROFILE: CLINICAL INFORMATION: LGA COMPARISON: 02/02/2025 There is a single live intrauterine gestation in cephalic presentation. The reported gestational age is 36 weeks 3 days. The heart rate [id number] beats per minute. FINDINGS: TONE: 1 or [...] Bright M.D. 02/09/2025 10:39 AM Dictation Location: [place] [address] Electronically authenticated by: [id number] Y Date: 02/09/2025 10:39 Dictated By: Lindsey Bright M.D. Signed By: 02/09/25 1042 DD/ 1039 TD/TT: Reinforcer: [facility] Radiology, Radiologi MD raymond - 02/09/2025 [place] [address] Ultrasound Report Signed Patient: ESTEFANIA CEDEÑO MR#: [id number] : 1995 Acct:[id number] Age/Sex: 29 / F ADM Date: 02/09/25 Loc: US Attending Dr: Aditya Cervantes D.O. Ordering Physician: Aditya Cervantes D.O. Date of Service: 02/09/25 Procedure(s): US OB BPP w non-stress Accession Number(s): [id number] cc: Aditya Cervantes D.O.; Physician,Non-Staff Roberto The [place] [id number] Patient Name: ESTEFANIA CEDEÑO MRN: [facility]:[id number] date: 1995 Sex: F Assigned Patient Location: [facility] Current Patient Location: Accession/Order Number: [id number] Exam Date: 02/09/2025 09:15 Report Date: 02/09/2025 10:39 At the request of: ADITYA CERVANTES DO Procedure: US OB BPP w non-stress BIOPHYSICAL PROFILE: CLINICAL INFORMATION: LGA COMPARISON: 02/02/2025 There is a single live intrauterine gestation in cephalic presentation. The reported gestational age is 36 weeks 3 days. The heart rate [id number] beats per minute. FINDINGS: TONE: 1 or [...] Bright M.D. 02/09/2025 10:39 AM Dictation Location: [employer] Electronically authenticated by: [id number] Y Date: 02/09/2025 10:39 Dictated By: Lindsey Bright M.D. Signed By: 02/09/25 1042 DD/ 1039 TD/TT: Reinforcer: [facility] Radiology Study observation (narrative) [facility] US OB BPP W NON-STRESS Ordered By: Radiologist Radiology on 02-09-2025 [facility] Work Phone: US OB BPP W NON-STRESS on 02-02-2025 [place] [address] Ultrasound Report Signed Patient: ESTEFANIA CEDEÑO MR#: [id number] : 1995 Acct:[id number] Age/Sex: 29 / F ADM Date: 02/02/25 Loc: US Attending Dr: Aditya Cervantes D.O. Ordering Physician: Aditya Cervantes D.O. Date of Service: 02/02/25 Procedure(s): US OB BPP w non-stress Accession Number(s): [id number] cc: Aditya Cervantes D.O.; Physician,Non-Staff Roberto The [address] [address] Patient Name: ESTEFANIA CEDEÑO MRN: [id number] date: 1995 Sex: F Assigned Patient Location: [facility] Current Patient Location: Accession/Order Number: [id number] Exam Date: 02/02/2025 09:12 Report Date: 02/02/2025 [...] Bright M.D. 02/02/2025 10:17 AM Dictation Location: [employer] Electronically authenticated by: [id number] Y Date: 02/02/2025 10:17 Dictated By: Lnidsey Bright M.D. Signed By: 02/02/25 1020 DD/ 1017 TD/TT: Reinforcer: [facility] Radiology, Radiologestefania andrade MD - 02/02/2025 [place] [address] Ultrasound Report Signed Patient: ESTEFANIA CEDEÑO MR#: [id number] : 1995 Acct:[id number] Age/Sex: 29 / F ADM Date: 02/02/25 Loc: US Attending Dr: Aditya Cervantes D.O. Ordering Physician: Aditya Cervantes D.O. Date of Service: 02/02/25 Procedure(s): US OB BPP w non-stress Accession Number(s): [id number] cc: Aditya Cervantes D.O.; Physician,Non-Staff Roberto [address] [address] Patient Name: ESTEFANIA CEDEÑO MRN: [id number] date: 1995 Sex: F Assigned Patient Location: [facility] Current Patient Location: Accession/Order Number: [id number] Exam Date: 02/02/2025 09:12 Report Date: 02/02/2025 [...] Bright M.D. 02/02/2025 10:17 AM Dictation Location: [place] [address] Electronically authenticated by: [id number] Y Date: 02/02/2025 10:17 Dictated By: Lindsey Bright M.D. Signed By: 02/02/25 1020 DD/ 1017 TD/TT: Reinforcer: [facility] Radiology Study observation (narrative) [facility] US OB BPP W NON-STRESS Ordered By: Radiologist Radiology on 02-02-2025 [facility] Work Phone: No Panel InformationOrdered By: Radiologist Radiology on 01-26-2025 [facility] Work Phone: No Panel Informationon 01-26 Radiology Study observation (narrative) [facility] US OB BPP W NON-STRESS on 01-26-2025 [place] [address] Ultrasound Report Signed Patient: ESTEFANIA CEDEÑO MR#: [id number] : 1995 Acct:[id number] Age/Sex: 29 / F ADM Date: 01/26/25 Loc: US Attending Dr: Aditya Cervantes D.O. Ordering Physician: Aditya Cervantes D.O. Date of Service: 01/26/25 Procedure(s): US OB BPP w non-stress Accession Number(s): [id number] cc: Aditya Cervantes D.O.; Physician,Non-Staff Roberto The [place] [address] Patient Name: ESTEFANIA CEDEÑO MRN: [id number] date: 1995 Sex: F Assigned Patient Location: [facility] Current Patient Location: Accession/Order Number: [id number] Exam Date: 01/26/2025 09:08 Report Date: 01/26/2025 [...] 01/26/2025 11:00 AM Dictation Location: [place] [address] Electronically authenticated by: [id number] Y Date: 01/26/2025 11:00 Dictated By: Lindsey Bright M.D. Signed By: 01/26/25 1103 DD/ 1100 TD/TT: Reinforcer: [facility] Radiology, Radiologi MD raymond - 01/26/2025 [place] [address] Ultrasound Report Signed Patient: ESTEFANIA CEDEÑO MR#: [id number] : 1995 Acct:[id number] Age/Sex: 29 / F ADM Date: 01/26/25 Loc: US Attending Dr: Aditya Cervantes D.O. Ordering Physician: Aditya Cervantes D.O. Date of Service: 01/26/25 Procedure(s): US OB BPP w non-stress Accession Number(s): [id number] cc: Aditya Cervantes D.O.; Physician,Non-Staff Roberto The [address] [address] Patient Name: ESTEFANIA CEDEÑO MRN: [facility]:[id number] date: 1995 Sex: F Assigned Patient Location: [facility] Current Patient Location: Accession/Order Number: [id number] Exam Date: 01/26/2025 09:08 Report Date: 01/26/2025 [...] 01/26/2025 11:00 AM Dictation Location: [place] [address] Electronically authenticated by: [id number] Y Date: 01/26/2025 11:00 Dictated By: Lindsey Bright M.D. Signed By: 01/26/25 1103 DD/ 1100 TD/TT: Reinforcer: [facility] OB GROWTHon 01-26-[address] [address] Ultrasound Report Signed Patient: ESTEFANIA CEDEÑO MR#: [id number] : 1995 Acct:[id number] Age/Sex: 29 / F ADM Date: 01/26/25 Loc: US Attending Dr: Aditya Cervantes D.O. Ordering Physician: Aditya Cervantes D.O. Date of Service: 01/26/25 Procedure(s): US OB growth Accession Number(s): [id number] cc: Aditya Cervantes D.O.; Physician,Non-Staff M.DAsiya [place] [address] Patient Name: ESTEFANIA CEDEÑO MRN: [id number] date: 1995 Sex: F Assigned Patient Location: US Current Patient Location: Accession/Order Number: [id number] Exam Date: 01/26/2025 09:08 Report Date: 01/26/2025 [...] Bright M.D. 01/26/2025 11:00 AM Dictation Location: [employer] Electronically authenticated by: [id number] Y Date: 01/26/2025 11:00 Dictated By: Lindsey Bright M.D. Signed By: 01/26/25 1103 DD/ 1100 TD/TT: Reinforcer: [facility] Radiology, Radiologi MD raymond - 01/26/2025 [place] [address] Ultrasound Report Signed Patient: ESTEFANIA CEDEÑO MR#: [id number] : 1995 Acct:[id number] Age/Sex: 29 / F ADM Date: 01/26/25 Loc: US Attending Dr: Aditya Cervantes D.O. Ordering Physician: Aditya Cervantes D.O. Date of Service: 01/26/25 Procedure(s): US OB growth Accession Number(s): [id number] cc: Aditya Cervantes D.O.; Physician,Non-Staff Roberto The [place] [id number] Patient Name: ESTEFANIA CEDEÑO MRN: [facility]:[id number] date: 1995 Sex: F Assigned Patient Location: US Current Patient Location: Accession/Order Number: [id number] Exam Date: 01/26/2025 09:08 Report Date: 01/26/2025 [...] lbs. 14 oz. +/- 14 ounces (73%) US/ OB growth IMPRESSION: SINGLE LIVE INTRAUTERINE GESTATION [...] 01/26/2025 11:00 AM Dictation Location: [place] [address] Electronically authenticated by: [id number] Y Date: 01/26/2025 11:00 Dictated By: Lindsey Bright M.D. Signed By: 01/26/25 1103 DD/ 1100 TD/TT: Reinforcer: [facility] OB BPP W NON-STRESS on 01-19-[address] [address] Ultrasound Report Signed Patient: ESTEFANIA CEDEÑO MR#: [id number] : 1995 Acct:[id number] Age/Sex: 29 / F ADM Date: 01/19/25 Loc: US Attending Dr: Aditya Cervantes D.O. Ordering Physician: Aditya Cervantes D.O. Date of Service: 01/19/25 Procedure(s): US OB BPP w non-stress Accession Number(s): [id number] cc: Aditya Cervantes D.O.; Physician,Non-Staff Roberto The [place] [id number] Patient Name: ESTEFANIA CEDEÑO MRN: [facility]:[id number] date: 1995 Sex: F Assigned Patient Location: [facility] Current Patient Location: Accession/Order Number: [id number] Exam Date: 01/19/2025 09:10 Report Date: 01/19/2025 [...] Saez M.D. 01/19/2025 2:26 PM Dictation Location: [place] [address] Electronically authenticated by: [id number] Y Date: 01/19/2025 14:26 Dictated By: Carroll Saez D.O. Signed By: 01/19/25 1429 DD/ 1426 TD/TT: Reinforcer: [facility] RadiologyBisiogestefania andrade MD - 01/19/2025 The [place] [id number] Ultrasound Report Signed Patient: ESTEFANIA CEDEÑO MR#: [id number] : 1995 Acct:[id number] Age/Sex: 29 / F ADM Date: 01/19/25 Loc: US Attending Dr: Aditya Cervantes D.O. Ordering Physician: Aditya Cervantes D.O. Date of Service: 01/19/25 Procedure(s): US OB BPP w non-stress Accession Number(s): [id number] cc: Aditya Cervantes D.O.; Physician,Non-Staff Roberto [place] [address] Patient Name: ESTEFANIA CEDEÑO MRN: [id number] date: 1995 Sex: F Assigned Patient Location: [facility] Current Patient Location: Accession/Order Number: [id number] Exam Date: 01/19/2025 09:10 Report Date: 01/19/2025 [...] Saez M.D. 01/19/2025 2:26 PM Dictation Location: [employer] Electronically authenticated by: [id number] Y Date: 01/19/2025 14:26 Dictated By: Carroll Saez D.O. Signed By: 01/19/25 1429 DD/ 142 TD/TT: Reinforcer: [facility] Radiology Study observation (narrative) [facility] US OB BPP W NON-STRESS Ordered By: Radiologist Radiology on 01-19-2025 [facility] Work Phone: Urinalysis macro (dipstick) panel (U)on 01-09-2025 Bilirubin, UA Negative Negative - 4(70) +++ mg/dL [facility] Blood, UA Negative Negative - 50 Chuy/mcL [facility] Clarity, UA Clear [facility] Color, UA Yellow [facility] Glucose, UA Negative Negative - 2000(110) ++++ mg/dL [facility] Interpretation and review of laboratory results Normal [facility] Ketones, UA Negative Negative - 160(16) ++++ mg/dL [facility] Leukocytes, UA Negative Negative - 500+++ Sadi/mcL [facility] Nitrite, UA Negative Negative - Positive [facility] pH, UA 6.5 5 - 9 [facility] Protein, UA Negative Negative - 2000(20) ++++ mg/dL [facility] Spec Grav, UA 1.015 1 - 1.03 [facility] Urobilinogen, UA 1.0 0.2 - 12 mg/dL [facility] US OB FOLLOW UP TRANSABDOMIN [...] II, MD, PHD at 28-Dec-2024 08:33:38 AM [facility] [place] [facility] Normal Not Available Comment on above: Order Comment: US OB SCAN FOR GROWTH Estimated Date of Delivery: 03/06/25 Gestational Age as of 12/13/2024: 28w1d Urinalysis macro (dipstick) panel (U)on 12-27-2024 Bilirubin, UA Negative Negative - 4(70) +++ mg/dL [facility] Blood, UA Negative Negative - 50 Chuy/mcL [facility] Clarity, UA Clear [facility] Color, UA Yellow [facility] Glucose, UA Positive Negative - 1999(110) ++++ mg/dL [facility] Interpretation and review of laboratory results Abnormal [facility] Ketones, UA Negative Negative - 160(16) ++++ mg/dL [facility] Leukocytes, UA Negative Negative - 500+++ Sadi/mcL [facility] Nitrite, UA Negative Negative - Positive [facility] pH, UA 6 5 - 9 [facility] Protein, UA Positive Negative - 1999(20) ++++ mg/dL [facility] Spec Grav, UA 1.02 1 - 1.03 [facility] Urobilinogen, UA 1.0 0.2 - 12 mg/dL [facility] Urinalysis macro (dipstick) panel (U)on 12-13-2024 Bilirubin, UA Negative Negative - 4(70) +++ mg/dL [facility] Blood, UA Negative Negative - 50 Chuy/mcL [facility] Clarity, UA Clear [facility] Color, UA Yellow [facility] Glucose, UA Negative Negative - 1999(110) ++++ mg/dL [facility] Interpretation and review of laboratory results Normal [facility] Ketones, UA Negative Negative - 160(16) ++++ mg/dL [facility] Leukocytes, UA Negative Negative - 500+++ Sadi/mcL [facility] Nitrite, UA Negative Negative - Positive [facility] pH, UA 6 5 - 9 [facility] Protein, UA Negative Negative - 1999(20) ++++ mg/dL [facility] Spec Grav, UA 1.015 1 - 1.03 [facility] Urobilinogen, UA 1.0 0.2 - 12 mg/dL [facility] GLUCOSE TOLERANCE 3 HOURon 0 12-12-2024 GLUCOSE TOLERANCE 3 HOUR High mg/dL [facility] Comment on above: GLU FAST 85 (<95) Co l: 12/12/24 1118 GLU 1HR 198H (<180) Col: 12/12/24 1220 GLU 2HR 171H (<155) Col: 12/12/24 1320 GLU 3HR 74 (<140) Col: 12/12/24 1422 Interpretation and review of laboratory results Abnormal [facility] [facility] ECG 12-LEADon 12-07-2024 [place] [address] Electrocardiograph Report Signed Patient: ESTEFANIA CEDEÑO MR#: [id number] : 1995 Acct:[id number] Age/Sex: 29 / F ADM Date: 12/05/24 Loc: CR Attending Dr: Latasha Padgett Ordering Physician: Latasha Padgett Date of Service: 12/05/24 Procedure(s): ECG 12 lead Accession Number(s): [id number] cc: [facility] Test Date: 2024-12-05 Pat Name: ESTEFANIA CEDEÑO Department: Room: - Gender: Female 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 Signed By: 12/07/2489912/07/24899 DD/ 6 TD/TT: Reinforcer: [facility] ECG 12-LEADOrdered By: Radio logist Radiology on 12-07-2024 [facility] Work Phone: ALL CBC WITH AUTO DIFFon BASOPHILS ABSOLUTE AUTO 0 [facility] Basophils/100 WBC (Bld) 0.2 % 0.2 - 2.0 % [facility] Eosinophils/100 WBC (Bld) 0.6 % Low 0.9 - 7.0 % [facility] Erythrocyte distribution width (RBC) [Ratio] 13.7 % 11.0 - 15.0 % [facility] Hematocrit (Bld) [Volume fraction] 34.3 % Low 36.0 - 48.0 % [facility] Hemoglobin (Bld) [Mass/Vol] 11.5 g/dL Low 12.0 - 16.0 g/dL [facility] IMMATURE GRANULOCYTES ABS AUTO 0.08 High [facility] Immature granulocytes/100 WBC (Bld) 0.7 % High 0.0 - 0.5 % [facility] Interpretation and review of laboratory results Abnormal [facility] LYMPHOCYTES ABSOLUTE AUTO 2.1 [facility] Lymphocytes/100 WBC (Bld) 18.9 % Low 20.5 - 60.0 % [facility] MCH (RBC) [Entitic mass] 27.8 pg 26.7 - 34.0 pg [facility] MCHC (RBC) [Mass/Vol] 33.5 g/dL 29.9 - 35.2 g/dL [facility] MCV (RBC) [Entitic vol] 82.9 fL 81.0 - 99.0 fL [facility] MONOCYTES ABSOLUTE AUTO 0.5 [facility] Monocytes/100 WBC (Bld) 4 % 1.7 - 12.0 % [facility] NEUTROPHILS ABSOLUTE AUTO 8.6 High [facility] Neutrophils/100 WBC (Bld) 75.6 % High 43.0 - 75.0 % [facility] Platelet mean volume (Bld) [Entitic vol] 11.1 fL 9.5 - 13.5 fL [facility] TBH EO # 0.1 [facility] TB PLT 140 Low [facility] TB RBC 4.14 [facility] 11.3 High [facility]IS[facility] ECG 12-LEADon 12-05-2024 Radiology Study observation (narrative) [facility] Urinalysis macro (dipstick) panel (U)on 11-22-2024 Bilirubin, UA Negative Negative - 4(70) +++ mg/dL [facility] Blood, UA Negative Negative - 50 Chuy/mcL [facility] Clarity, UA Clear [facility] Color, UA Yellow [facility] Glucose, UA Negative Negative - 2000(110) ++++ mg/dL [facility] Interpretation and review of laboratory results Abnormal [facility] Ketones, UA Positive Negative - 160(16) ++++ mg/dL [facility] Comment on above: trace Leukocytes, UA Negative Negative - 500+++ Sadi/mcL [facility] Nitrite, UA Negative Negative - Positive [facility] pH, UA 6.5 5 - 9 [facility] Protein, UA Negative Negative - 2000(20) ++++ mg/dL [facility] Spec Grav, UA 1.025 1 - 1.03 [facility] Urobilinogen, UA 0.2 0.2 - 12 mg/dL [facility] MHPT AFP, MATERNALon 10-30- 025 MHPT DETERMINED BY Ultrasound [facility] MHPT DUE DATE SEE NOTE [facility] Comment on above: Results for Estimate d Due Date: 03 06 25 MHPT FAMILY HISTORY No [facility] MHPT GESTAT AGE (EXACT) 20 wks, 0 days [facility] MHPT INS REQ MATERN DIAB No [facility] MHPT INTERPRETATION Screen Neg [facility] Comment on above: (NOTE) INTERPRETATION: SCREEN NEGATIVE for open spina bifida Neural Tube Defects (NTD) Negative Pre-Test Post-Test Cutoff Neural Tube Defects Risks 1:1030 < 1:04414 1:250 Comments: The risk of an open neural tube defect is less than the screening cut-off. This test was developed and its performance characteristics determined by [employer]. It has not been cleared or approved by the US Food and Drug Administration. This test was performed in a CLIA certified laboratory and is intended for clinical purposes. MHPT [age] [facility] MHPT [facility]NAL RACE [facility] MAT[facility] WEIGHT 234.0 lbs. [facility] MHPT MOM FOR AFP 0.82 [facility] MHPT NUMBER OF FETUSES Sanchez NO [facility] MHPT PATIENT'S AFP 36 ng/mL [facility] MHPT SMOKING Unknown [facility] SPECIMEN See Note [facility] Comment on above: (NOTE) Initial sample Performed By: [facility] [address] [place] [address] Optical Laboratory Mechanic: Pranay Rousseau MD, PhD CLIA Number: [id number] Original Ordering Provider: ADITYA CRA[facility] [place] Urinalysis macro (dipstick) panel (U)on 10-25-2024 Bilirubin, UA Negative Negative - 4(70) +++ mg/dL [facility] Blood, UA Negative Negative - 50 Chuy/mcL [facility] Clarity, UA Clear [facility] Color, UA Yellow [facility] Glucose, UA Negative Negative - 2000(110) ++++ mg/dL [facility] Interpretation and review of laboratory results Normal [facility] Ketones, UA Negative Negative - 160(16) ++++ mg/dL [facility] Leukocytes, UA Negative Negative - 500+++ Sadi/mcL [facility] Nitrite, UA Negative Negative - Positive [facility] pH, UA 5.5 5 - 9 [facility] Protein, UA Negative Negative - 2000(20) ++++ mg/dL [facility] Spec Grav, UA 1.03 1 - 1.03 [facility] Urobilinogen, UA 0.2 0.2 - 12 mg/dL [facility] AFP, Maternalon 10-20-2024 Determined by Ultrasound [facility] Comment on above: Performed By: #### A AFPM #### [facility] [address] [place] [address] News Assignment Editor: Dallas Xiong MD Due Date SEE NOTE [facility] Comment on above: Result Comment: Resu lts for Estimated Due Date: 03 06 25 Performed By: #### A AFPM #### [facility] [address] [place] [address] News Assignment Editor: Dallas Xiong MD Family History No Normal [facility] Comment on above: Performed By: #### A AFPM #### [facility] [address] [place] [address] News Assignment Editor: Dallas Xiong MD Gestat Age (exact) 20 wks, 0 days Normal [facility] Comment on above: Performed By: #### A AFPM #### [facility] [address] [place] [address] News Assignment Editor: Dallas Xiong MD Ins Req Matern Diab No [facility] Comment on above: Performed By: #### A AFPM #### [facility] [address] [place] [address] News Assignment Editor: Dallas Xiong MD Interpretation Screen Neg [facility] Comment on above: Result Comment: (NOT E) INTERPRETATION: SCREEN NEGATIVE for open spina bifida Neural Tube Defects (NTD) Negative Pre-Test Post-Test Cutoff Neural Tube Defects Risks 1:1030 < 1:51055 1:250 Comments: The risk of an open neural tube defect is less than the screening cut-off. This test was developed and its performance characteristics determined by [facility] [facility]. It has not been cleared or approved by the US Food and Drug Administration. This test was performed in a CLIA certified laboratory and is intended for clinical purposes. Performed By: #### A AFPM #### [facility] [address] [place] [address] News Assignment Editor: Dallas Xiong MD [age] [facility] Comment on above: Performed By: #### A AFPM #### [facility] [address] [place] [address] News Assignment Editor: Dallas Xiong MD Maternal Race Nonblack [facility] Comment on above: Performed By: #### A AFPM #### [facility] [address] [place] [address] News Assignment Editor: Dallas Xiong MD Maternal Weight 234.0 lbs. [facility] Comment on above: Performed By: #### A AFPM #### [facility] [address] [place] [address] News Assignment Editor: Dallas Xiong MD MoM for AFP 0.82 [facility] Comment on above: Performed By: #### A AFPM #### [facility] [address] [place] [address] News Assignment Editor: Dallas Xiong MD Number of Fetuses Sanchez [facility] Comment on above: Performed By: #### A AFPM #### [facility] [address], [place] [id number] News Assignment Editor: Dallas Xiong MD Patient's AFP 36 ng/mL [facility] Comment on above: Performed By: #### A AFPM #### [facility] [address] [place] [address] News Assignment Editor: Dallas Xiong MD Smoking Unknown [facility] Comment on above: Performed By: #### A AFPM #### [facility] [address], [place] [id number] News Assignment Editor: Dallas Xiong MD Specimen See Note [facility] Comment on above: Result Comment: (NOT E) Initial sample Performed By: [facility] [address] [place] [address] Optical Laboratory Mechanic: Pranay Rousseau MD, PhD CLIA Number: [id number] Performed By: #### A AFPM #### [facility] [address] [place] [address] News Assignment Editor: Dallas Xiong MD IGP,APTIMA HPV,AGE GDLNon AGE GDLN ACOG TESTING Note . [facility] Comment on above: TESTS RESULT FLAG [facility] REF RANGE LAB Clinician Provided Cytology Information Other.............. No. of containers..01 ThinPrep Vial Age Sarithao ACOG Geetha... -29 06 FLAG LEGEND: L-Low Normal,H-High Normal,LL-Alert Low,HH-Alert High <-Panic Low,>-Panic High,A-Abnormal,AA-Critical Abnormal Performed at: 01 =G [facility] [address] [place] [address] Lynda Almaguer MD, IGP, RFX APTIMA HPV ASCU Note . [facility] Comment on above: TESTS RESULT FLAG [facility] REF RANGE LAB DIAGNOSIS: 02 NEGATIVE FOR INTRAEPITHELIAL LESION OR MALIGNANCY. FUNGAL ORGANISMS MORPHOLOGICALLY CONSISTENT WITH MARTHA SPECIES ARE PRESENT. CELLULAR CHANGES ASSOCIATED WITH INFLAMMATION ARE PRESENT. Specimen adequacy: 02 Satisfactory for evaluation. Endocervical and/or squamous metaplastic cells (endocervical component) are present. Performed by: 02 Argelia Correia Cytogeneticist . 02 Note: Note 02 The Pap [...] <-Panic Low,>-Panic High,A-Abnormal,AA-Critical Abnormal Performed at: [address] [address] Lynda Almaguer MD, Performed at: = - [facility] [id number] News Assignment Editor: Lynda Almaguer MD, Phone: [phone] Performed at: [address] [id number] News Assignment Editor: Lynda Almaguer MD, Phone: [phone] BRUSH-SPATULA BRUSH-ALONE 2 [facility] US OB 14+ WEEKS ANATOMY SCAN [...] II, MD, PHD at 25-Oct-2024 11:18:35 PM [facility] [place] [facility] Normal Not Available Comment on above: Order Comment: US OB ANATOMY SINGLE W US OB CERVICAL LENGTH Estimated Date of Delivery: 03/06/25 Gestational Age as of 09/26/2024: 17w0d Urinalysis macro (dipstick) panel (U)on 09-26-2024 Bilirubin, UA Negative Negative - 4(70) +++ mg/dL [facility] Blood, UA Negative Negative - 50 Chuy/mcL [facility] Clarity, UA Clear [facility] Color, UA Yellow [facility] Glucose, UA Negative Negative - 2000(110) ++++ mg/dL [facility] Interpretation and review of laboratory results Normal [facility] Ketones, UA Positive Negative - 160(16) ++++ mg/dL [facility] Leukocytes, UA Negative Negative - 500+++ Sadi/mcL [facility] Nitrite, UA Negative Negative - Positive [facility] pH, UA 7 5 - 9 [facility] Protein, UA Negative Negative - 1999(20) ++++ mg/dL [facility] Spec Grav, UA 1.02 1 - 1.03 [facility] Urobilinogen, UA 0.2 0.2 - 12 mg/dL [facility] Urinalysis macro (dipstick) panel (U)on 08-29-2024 Bilirubin, UA Negative Negative - 4(70) +++ mg/dL [facility] Blood, UA Positive Negative - 50 Chuy/mcL [facility] Comment on above: trace-intact Clarity, UA Clear [facility] Color, UA Yellow [facility] Glucose, UA Negative Negative - 1999(110) ++++ mg/dL [facility] Interpretation and review of laboratory results Abnormal [facility] Ketones, UA Negative Negative - 160(16) ++++ mg/dL [facility] Leukocytes, UA Negative Negative - 500+++ Sadi/mcL [facility] Nitrite, UA Negative Negative - Positive [facility] pH, UA 7 5 - 9 [facility] Protein, UA Negative Negative - 1999(20) ++++ mg/dL [facility] Spec Grav, UA 1.025 1 - 1.03 [facility] Urobilinogen, UA 0.2 0.2 - 12 mg/dL [facility] US OB TRANSVAGINALon 025 US OB TRANSVAGINAL [...] II, MD, PHD at 05-Aug-2024 09:13:53 AM [facility] [place] [facility] Normal Not Available Comment on above: Order Comment: US OB TRANSVAGINAL No LMP recorded. [facility] PREG QUANT HCGon 025 HCG QUANTITATIVE [address]9110 mIU/mL [facility] Comment on above: 5-50 0.2-1 WEEK 50-500 1-2 WEEKS 100-5,000 2-3 WEEKS 500-10,000 3-4 WEEKS 1,000-50,000 4-5 WEEKS 10,000-100,000 5-6 WEEKS 15,000-200,000 6-8 WEEKS 10,000-100,000 2-3 MONTHS [facility] PREG QUANT HCGon 025 HCG QUANTITATIVE [address]18[address] mIU/mL [facility] Comment on above: 5-50 0.2-1 WEEK 50-500 1-2 WEEKS 100-5,000 2-3 WEEKS 500-10,000 3-4 WEEKS 1,000-50,000 4-5 WEEKS 10,000-100,000 5-6 WEEKS 15,000-200,000 6-8 WEEKS 10,000-100,000 2-[facility] ([facility]stick) panel (U)on 07-15-2023 Bilirubin, UA Negative Negative - 4(70) +++ mg/dL [facility] Blood, UA Negative Negative - 50 Chuy/mcL [facility] Clarity, UA Clear [facility] Color, UA Yellow [facility] Glucose, UA Negative Negative - 2000(110) ++++ mg/dL [facility] Interpretation and review of laboratory results Normal [facility] Ketones, UA Positive Negative - 160(16) ++++ mg/dL [facility] Leukocytes, UA Negative Negative - 500+++ Sadi/mcL [facility] Nitrite, UA Negative Negative - Positive [facility] pH, UA 6.5 5 - 9 [facility] Protein, UA Negative Negative - 2000(20) ++++ mg/dL [facility] Spec Grav, UA 1.025 1 - 1.03 [facility] Urobilinogen, UA 0.2 0.2 - 12 mg/dL [facility] C-Reactive Proteinon 022 CRP [Mass/Vol] mg/L 0 - 5 mg/L [facility] CBC with Auto Differentialon 12-16-2021 Absolute Eos # 0.[address] [facility] Absolute Immature Granulocyte 0.04 [facility] Absolute Lymph # 2.98 [facility] Absolute [place] # 0.51 [facility] Basophils (Bld) [#/Vol] 0.04 10*3/uL [facility] Basophils/100 WBC (Bld) 0 % 0 - 2 % [facility] Eosinophils/100 WBC (Bld) 1 % 1 - 4 % [facility] Hematocrit (Bld) [Volume fraction] 39.6 % 36.3 - 47.1 % [facility] Hemoglobin (Bld) [Mass/Vol] 13.1 g/dL 11.9 - 15.1 g/dL [facility] Immature granulocytes/100 WBC (Bld) 0 % 0 [facility] Lymphocytes/100 WBC (Bld) 33 % 24 - 43 % [facility] MCH (RBC) [Entitic mass] 28.2 pg 25.2 - 33.5 pg [facility] MCHC (RBC) [Mass/Vol] 33.1 g/dL 28.4 - 34.8 g/dL [facility] MCV (RBC) [Entitic vol] 85.3 fL 82.6 - 102.9 fL [facility] Monocytes/100 WBC (Bld) 6 % 3 - 12 % [facility] NRBC Automated 0.0 0.0 per 100 WBC [facility] Platelet distribution width (Bld) [Ratio] 12.0 % 11.8 - 14.4 % [employer] Platelet mean volume (Bld) [Entitic vol] 11.1 fL 8.1 - 13.5 fL [facility] Certain Platelets (Bld) [#/Vol] 214 10*3/uL [facility] [facility] Certain RBC (Bld) [#/Vol] 4.64 10*6/uL 3.95 - 5.1 1 m/uL [employer] [facility] Certain Segmented neutrophils/100 WBC (Bld) 60 % 36 - 65 % [facility] Certain Segs Absolute 5.49 [employer] [facility] [employer] WBC (Bld) [#/Vol] 9.2 10*3/uL [facility] [employer] [facility] Certain Rheumatoid Factoron 12-17-19 22 Rheumatoid Factor <10 NINF [facility] [employer] [facility] Certain Sedimentation Rateon 022 Sed Rate 5 [facility] Certain [facility] Certain Uric Acidon 12-16-2021 Urate [Mass/Vol] 4.2 mg/dL 2.4 - 5.7 mg/dL [facility] Basic Metabolic Panel w/ Ref yossi to MGOrdered By: Donny Hatfield on 10-15-2020 Anion gap [Moles/Vol] 13 mmol/L 9 - 17 mmol/L [employer] Phone: Calcium [Mass/Vol] 9.6 mg/dL 8.6 - 10. 4 mg/dL [facility] Phone: Chloride [Moles/Vol] 105 mmol/L 98 - 10 7 mmol/L [facility] Phone: CO2 [Moles/Vol] 22 mmol/L 20 - 31 mmol/L [facility] Phone: Creatinine [Mass/Vol] 0.62 mg/dL 0.50 - 0.90 mg/dL [facility] Phone: GFR >60 >60 mL/min [employer] Work Phone: GFR Non- >60 >60 mL/min [facility] Work Phone: Glucose [Mass/Vol] 110 mg/dL High 70 - 99 mg/dL [facility] Phone: Interpretation and review of laboratory results Abnormal [facility] Phone: Potassium [Moles/Vol] 3.5 mmol/L Low 3.7 - 5.3 mmol/L [facility] Phone: Sodium [Moles/Vol] 140 mmol/L 135 - 144 mmol/L [facility] Phone: Urea nitrogen (BldV) [Mass/Vol] 12 mg/dL 6 - 20 mg/dL [facility] Phone: Urea nitrogen/Creatinine (Bld) [Mass ratio] 19 [facility] Phone: [facility] Phone: CBC Auto DifferentialOrdered By: Donny Hatfield on 10-15-2020 Absolute Eos # 0.19 [facility] [facility] Work Phone: Absolute Immature Granulocyte 0.06 [facility] Work Phone: Absolute Lymph # 2.50 [employer] [facility] Work Phone: Absolute [place] # 0.75 [employer] [facility] Work Phone: Basophils (Bld) [#/Vol] 0.04 10*3/uL [facility] Work Phone: Basophils/100 WBC (Bld) 0 % 0 - 2 % [facility] Work Phone: Differential Type NOT REPORTED [facility] Phone: Eosinophils/100 WBC (Bld) 1 % 1 - 4 % [facility] Phone: Hematocrit (Bld) [Volume fraction] 42.1 % 36.3 - 47.1 % [facility] Phone: Hemoglobin.gastrointes tinal spec 1 Ql (Stl) 14.0 g/dL 11.9 - 15.1 g/dL [facility] Phone: Immature granulocytes/100 WBC (Bld) 0 % 0 [facility] Phone: Interpretation and review of laboratory results Abnormal [facility] Phone: Lymphocytes/100 WBC (Bld) 14 % Low 24 - 43 % [facility] Phone: MCH (RBC) [Entitic mass] 28.1 pg 25.2 - 33.5 pg [facility] Phone: MCHC (RBC) [Mass/Vol] 33.3 g/dL 28.4 - 34.8 g/dL [facility] Phone: MCV (RBC) [Entitic vol] 84.4 fL 82.6 - 102.9 fL [facility] Phone: Monocytes/100 WBC (Bld) 4 % 3 - 12 % [facility] Phone: NRBC Automated 0.0 0.0 per 100 WBC [facility] Phone: Platelet distribution width (Bld) [Ratio] 11.9 % 11.8 - 14.4 % [facility] Phone: Platelet Estimate NOT REPORTED [facility] Phone: Platelet mean volume (Bld) [Entitic vol] 10.7 fL 8.1 - 13.5 fL [facility] Phone: Platelets (Bld) [#/Vol] 220 10*3/uL [facility] Phone: RBC (Bld) [#/Vol] 4.99 10*6/uL 3.95 - 5.1 1 m/uL [facility] Phone: RBC (Bld) [#/Vol] NOT REPORTED [facility] Phone: Segmented neutrophils/100 WBC (Bld) 81 % High 36 - 65 % [facility] Phone: Segs Absolute 14.20 High [employer] Work Phone: WBC (Bld) [#/Vol] 17.7 10*3/uL [email or web address] Phone: WBC (Bld) [#/Vol] NOT REPORTED [facility] Phone: [facility] Phone: CT ABDOMEN PELVIS W IV CONTR AST Additional Contrast? NoneOrdered By: Donny Hatfield on 10-15-2020 1. Marked hepatic steatosis. 2. Hepatomegaly. 3. Mild colonic diverticulosis without evidence of diverticulitis. [facility] Phone: EXAMINATION: CT OF T ABDOMEN AND [...] None. HISTORY: ORDERING SYSTEM PROVIDED HISTORY: [facility] pain TECHNOLOGIST PROVIDED HISTORY: [facility] pain Decision Support Exception - unselect if [...] subcutaneous soft tissues are unremarkable in appearance. [facility] Work Phone: Jean Marie, Mhpn Incoming Radiant Results From [email or web address] - 10/15/2020 1:48 AM EDT EXAMINATION: CT [...] None. HISTORY: ORDERING SYSTEM PROVIDED HISTORY: [facility] pain TECHNOLOGIST PROVIDED HISTORY: [facility] pain Decision Support Exception - unselect if [...] Mild colonic diverticulosis without evidence of diverticulitis. [facility] Phone: [facility] Phone: HCG Qualitative, SerumOrdere d By: Donny Hatfield on 10-15-2020 hCG Qual Negative NEGATIVE [facility] Phone: Comment on above: Specimens with hCG l evels near the threshold of the test (25 mIU/mL) may give a negative or indeterminate result. In such cases, another test should be performed with a new specimen in 48-72 hours. If early is suspected clinically in this setting, correlation with quantitative serum b-hCG level is suggested. [employer] has confirmed the use of plasma for this test. This has not been cleared or approved by the U.S. Food and Drug Administration. The FDA has determined that such clearance is not necessary. [facility] Phone: Hepatic Function PanelOrdere d By: Donny Hatfield on 10-15-2020 Albumin [Mass/Vol] 4.6 g/dL 3.5 - 5.2 g/dL [facility] Phone: Albumin/Globulin [Mass ratio] 1.6 {ratio} [facility] Phone: ALP (Bld) [Catalytic activity/Vol] 59 U/L 35 - 104 U/L [facility] Phone: ALT [Catalytic activity/Vol] 38 U/L High 5 - 33 U/L [facility] Phone: AST [Catalytic activity/Vol] 24 U/L <32 [facility] Phone: Bilirubin [Mass/Vol] 0.48 mg/dL 0.3 - 1 .2 mg/dL [facility] Phone: Bilirubin, Indirect CANNOT BE CALCULATED 0.00 - 1.00 mg/dL [facility] Phone: Bilirubin.indirect [Mass/Vol] mg/dL <0.31 mg/dL [facility] Phone: Free PSA/Total PSA [Mass fraction] 7.4 g/dL 6.4 - 8.3 g/dL [facility] Phone: Globulin NOT REPORTED 1.5 - 3.8 g/dL [facility] Phone: Interpretation and review of laboratory results Abnormal [facility] Phone: Laboratory - Chemistry and C hemistry - challengeOrdered By: Donny Hatfield on 10-15-2020 GFR/1.73 sq M.predicted MDRD (S/P/Bld) [Vol rate/Area] [facility] Phone: Comment on above: Average GFR for 20-2 9 years old: 116 mL/min/1.73sq m Chronic Kidney Disease: <60 mL/min/1.73sq m Kidney failure: <15 mL/min/1.73sq m eGFR calculated using average adult body mass. Additional eGFR calculator available at: http://www.Stonewedge/multiple_crcl_2011.htm Stage 1: Some kidney damage normal GFR Stage 2: Mild kidney damage GFR 60-89 Stage 3: Moderate kidney damage GFR 30-59 Stage 4: Severe kidney damage GFR 15-29 Stage 5: Severe kidney damage GFR <15 ESRD - chronic treatment by dialysis or transplant Lactic Acid, PlasmaOrdered B y: Donny Hatfield on 10-15-2020 Lactate [Moles/Vol] 1.1 mmol/L 0.5 - 2. 2 mmol/L [facility] Phone: Lactic Acid, Whole Blood NOT REPORTED 0.7 - 2.1 mmol/L [facility] Phone: [facility] Phone: LipaseOrdered By: Cuco on 10-15-2020 Lipase [Catalytic activity/Vol] 27 U/L 13 - 60 U/L [facility] Phone: MagnesiumOrdered By: Donny Hatfield on 10-15-2020 Magnesium [Mass/Vol] 1.8 mg/dL 1.6 - 2 .6 mg/dL [facility] Work Phone: [facility] Work Phone: Microscopic UrinalysisOrdere d By: Donny Hatfield on 10-15-2020 - [facility] Work Phone: Amorphous, UA NOT REPORTED None [facility] Work Phone: Bacteria, UA 1+ Abnormal None [facility] Work Phone: Casts UA NOT REPORTED /LPF [facility] Work Phone: Crystals, UA NOT REPORTED None /HPF [facility] Work Phone: Epithelial Cells UA 2 TO 5 [facility] Work Phone: Interpretation and review of laboratory results Abnormal [facility] Work Phone: Mucus, UA 1+ Abnormal None [facility] [employer] Work Phone: Other Observations UA NOT REPORTED NOT REQ. M [facility] Work Phone: RBC, UA 2 TO 5 [facility] Work Phone: Renal Epithelial, UA NOT REPORTED 0 /HPF [facility] Work Phone: Trichomonas, UA NOT REPORTED None [facility] Work Phone: WBC, UA 0 TO 2 [facility] [employer] Work Phone: Yeast, UA NOT REPORTED None [facility] Work Phone: [facility] Work Phone: No Panel InformationOrdered By: Donny Hatfield on 10-15-2020 [facility] [employer] Work Phone: Urinalysis Reflex to Culture Ordered By: Donny Hatfield on 10-15-2020 Bilirubin Urine Negative NEGATIVE [facility] Work Phone: Color, UA YELLOW YELLOW [facility] [employer] Work Phone: Glucose, Ur Negative NEGATIVE [facility] [employer] Work Phone: Interpretation and review of laboratory results Abnormal [facility] [employer] Work Phone: Ketones Ql (U) Negative NEGATIVE [facility] Work Phone: Leukocyte esterase Test strip Ql (U) Negative NEGATIVE [facility] [employer] Work Phone: Nitrite, Urine Negative NEGATIVE [facility] [employer] Work Phone: pH, UA 5.0 [facility] [employer] Work Phone: Protein, UA Negative NEGATIVE [facility] [employer] Work Phone: Specific [place], UA 1.010 [facility] [employer] Work Phone: Turbidity UA CLEAR CLEAR [facility] [employer] Work Phone: Urinalysis Comments NOT REPORTED [facility] [employer] Work Phone: Urine Hgb 2+ Abnormal NEGATIVE [facility] [employer] Work Phone: Urobilinogen, Urine Normal Normal [facility] [employer] Work Phone: [facility] [employer] Work Phone: Comp Metabolic Profon 2020 (cont.) Normal [facility] Comment on above: Result Comment: Aver age GFR for 20-29 years old: 116 mL/min/1.73sq m Chronic Kidney Disease: <60 mL/min/1.73sq m Kidney failure: <15 mL/min/1.73sq m eGFR calculated using average adult body mass. Additional eGFR calculator available at: http://www.HowDo.Unipower Battery/multiple_crcl_2011.htm Performed By: #### L IPRF, CDP, CP, TSHX #### [address] [place] [address] News Assignment Editor: Chato Aguirre MD Albumin [Mass/Vol] 4.3 g/dL Normal 3.5-5.2 [facility] Comment on above: Performed By: #### L IPRF, CDP, CP, TSHX #### [address] [address] News Assignment Editor: Chato Aguirre MD Albumin/Glob Ratio 1.3 Normal 1.0-2.5 [facility] Comment on above: Performed By: #### L IPRF, CDP, CP, TSHX #### [address] [address] News Assignment Editor: Chato Aguirre MD Alkaline Phos 49 U/L Normal 35-104 [facility] Comment on above: Performed By: #### L IPRF, CDP, CP, TSHX #### [address] [address] News Assignment Editor: Chato Aguirre MD ALT [Catalytic activity/Vol] 36 U/L High 5-33 [facility] Comment on above: Performed By: #### L IPRF, CDP, CP, TSHX #### [address] [address] News Assignment Editor: Chato Aguirre MD Anion gap [Moles/Vol] 11 mmol/L Normal 9-17 [facility] Comment on above: Performed By: #### L IPRF, CDP, CP, TSHX #### [address] [address] News Assignment Editor: Chato Aguirre MD AST [Catalytic activity/Vol] 27 U/L Normal <32 [facility] Comment on above: Performed By: #### L IPRF, CDP, CP, TSHX #### [address] [address] News Assignment Editor: Chato Aguirre MD Bilirubin [Mass/Vol] 0.34 mg/dL Normal 0.3-1.2 [facility] Comment on above: Performed By: #### L IPRF, CDP, CP, TSHX #### [facility] [employer] [address] [place] [address] News Assignment Editor: Chato Aguirre MD Calcium [Mass/Vol] 9.5 mg/dL Normal 8.6-10.4 [facility] Comment on above: Performed By: #### L IPRF, CDP, CP, TSHX #### [facility] [address] [place] [address] News Assignment Editor: Chato Aguirre MD Chloride [Moles/Vol] 102 mmol/L Normal 98-107 [facility] Comment on above: Performed By: #### L IPRF, CDP, CP, TSHX #### [facility] [address] [place] [address] News Assignment Editor: Chato Aguirre MD CO2 [Moles/Vol] 22 mmol/L Normal 20-31 [facility] Comment on above: Performed By: #### L IPRF, CDP, CP, TSHX #### [facility] [employer] [address] [place] [address] News Assignment Editor: Chato Aguirre MD Creatinine [Mass/Vol] 0.46 mg/dL Low 0.50-0.90 [facility] Comment on above: Performed By: #### L IPRF, CDP, CP, TSHX #### [facility] [employer] [address] [place] [address] News Assignment Editor: Chato Aguirre MD GFR, Amer >60 Normal >60 [facility] Comment on above: Performed By: #### L IPRF, CDP, CP, TSHX #### [facility] [employer] [address] [place] [address] News Assignment Editor: Chato Aguirre MD GFR,non Amer >60 Normal >60 [facility] Comment on above: Performed By: #### L IPRF, CDP, CP, TSHX #### [facility] [address] [place] [address] News Assignment Editor: Chato Aguirre MD Glucose [Mass/Vol] 92 mg/dL Normal 70-99 [facility] Comment on above: Performed By: #### L IPRF, CDP, CP, TSHX #### [facility] [employer] [address] [place] [address] News Assignment Editor: Chato Aguirre MD Potassium [Moles/Vol] 4.2 mmol/L Normal 3.7-5.3 [facility] Comment on above: Performed By: #### L IPRF, CDP, CP, TSHX #### [facility] [employer] [address] [place] [address] News Assignment Editor: hCato Aguirre MD Protein [Mass/Vol] 7.5 g/dL Normal 6.4-8.3 [facility] Comment on above: Performed By: #### L IPRF, CDP, CP, TSHX #### [address] [address] News Assignment Editor: Chato Aguirre MD Sodium [Moles/Vol] 135 mmol/L Normal 135-144 [facility] Comment on above: Performed By: #### L IPRF, CDP, CP, TSHX #### [facility] [employer] [address] [place] [address] News Assignment Editor: Chato Aguirre MD Urea nitrogen [Mass/Vol] 11 mg/dL Normal 6-20 [facility] Comment on above: Performed By: #### L IPRF, CDP, CP, TSHX #### [facility] [employer] [address] [place] [address] News Assignment Editor: Chato Aguirre MD Lipid Prof, Fastingon 2020 Cholesterol [Mass/Vol] 186 mg/dL Normal <200 [facility] Comment on above: Result Comment: Cholesterol Guidelines: <200 Desirable 200-240 Borderline >240 Undesirable Performed By: #### L IPRF, CDP, CP, TSHX #### [facility] [employer] [address] [place] [address] News Assignment Editor: Chato Aguirre MD Cholesterol in HDL [Mass/Vol] 49 mg/dL Normal >40 [facility] Comment on above: Result Comment: HDL Guidelines: <40 Undesirable 40-59 Borderline >59 Desirable Performed By: #### L IPRF, CDP, CP, TSHX #### [employer] [address] [place] [address] News Assignment Editor: Chato Aguirre MD Cholesterol in LDL [Mass/Vol] 102 mg/dL Normal 0-130 [facility] Comment on above: Result Comment: LDL Guidelines: <100 Desirable 100-129 Near to/above Desirable 130-159 Borderline >159 Undesirable Direct (measured) LDL and calculated LDL are not interchangeable tests. Performed By: #### L IPRF, CDP, CP, TSHX #### [employer] [address] [place] [address] News Assignment Editor: Chato Aguirre MD Cholesterol.total/Chol esterol in HDL [Mass ratio] 3.8 {ratio} Normal <5 [facility] Comment on above: Performed By: #### L IPRF, CDP, CP, TSHX #### [employer] [address] [place] [address] News Assignment Editor: Chato Aguirre MD Triglyceride,Fasting 173 mg/dL High <150 [facility] Comment on above: Result Comment: Triglyceride Guidelines: <150 Desirable 150-199 Borderline 200-499 High >499 Very high Based on AHA Guidelines for fasting triglyceride, February 2012. Performed By: #### L IPRF, CDP, CP, TSHX #### [employer] [address] [place] [address] News Assignment Editor: Chato Aguirre MD TSH w/reflex to FT4on 2020 TSH Qn 3.38 m[IU]/L Normal 0.30-5.00 [facility] Comment on above: Performed By: #### L IPRF, CDP, CP, TSHX #### [employer] [address] [place] [id number] News Assignment Editor: Chato Aguirre MD CBC Auto DifferentialOrdered By: Miguel Holley on 09-23-2020 Absolute Eos # 0.14 [employer] [facility] Work Phone: Absolute Immature Granulocyte <0.03 [facility] Work Phone: Absolute Lymph # 2.71 [employer] [facility] Work Phone: Absolute [place] # 0.48 [employer] [facility] Work Phone: Basophils (Bld) [#/Vol] 0.05 10*3/uL [facility] Work Phone: Basophils/100 WBC (Bld) 1 % 0 - 2 % [facility] Phone: Differential Type NOT REPORTED [facility] Phone: Eosinophils/100 WBC (Bld) 2 % 1 - 4 % [facility] Phone: Hematocrit (Bld) [Volume fraction] 42.9 % 36.3 - 47.1 % [facility] Phone: Hemoglobin.gastrointes tinal spec 1 Ql (Stl) 13.5 g/dL 11.9 - 15.1 g/dL [facility] Phone: Immature granulocytes/100 WBC (Bld) 0 % 0 [facility] Phone: Lymphocytes/100 WBC (Bld) 30 % 24 - 43 % [facility] Phone: MCH (RBC) [Entitic mass] 27.6 pg 25.2 - 33.5 pg [facility] Phone: MCHC (RBC) [Mass/Vol] 31.5 g/dL 28.4 - 34.8 g/dL [facility] Phone: MCV (RBC) [Entitic vol] 87.6 fL 82.6 - 102.9 fL [facility] Phone: Monocytes/100 WBC (Bld) 5 % 3 - 12 % [facility] Phone: NRBC Automated 0.0 0.0 per 100 WBC [facility] Phone: Platelet distribution width (Bld) [Ratio] 12.4 % 11.8 - 14.4 % [facility] Phone: Platelet Estimate NOT REPORTED [facility] Phone: Platelet mean volume (Bld) [Entitic vol] 11.6 fL 8.1 - 13.5 fL [facility] Phone: Platelets (Bld) [#/Vol] 246 10*3/uL [facility] Phone: RBC (Bld) [#/Vol] 4.90 10*6/uL 3.95 - 5.1 1 m/uL [facility] Phone: RBC (Bld) [#/Vol] NOT REPORTED [facility] Phone: Segmented neutrophils/100 WBC (Bld) 62 % 36 - 65 % [facility] Phone: Segs Absolute 5.79 [employer] Work Phone: WBC (Bld) [#/Vol] 9.2 10*3/uL [facility] Phone: WBC (Bld) [#/Vol] NOT REPORTED [facility] Phone: CBC with Diffon 09-23-2020 Abs. Basophil 0.05 k/uL Normal 0.00-0.20 [facility] Comment on above: Performed By: #### L IPRF, CDP, CP, TSHX #### [employer] [address] [place] [address] News Assignment Editor: Chato Aguirre MD Abs.Imm.Granulocyte <0.03 Normal 0.00-0.30 [facility] Comment on above: Performed By: #### L IPRF, CDP, CP, TSHX #### [facility] [employer] [address] [place] [address] News Assignment Editor: Chato Aguirre MD Abs.Neutrophil (Seg) 5.79 k/uL Normal 1.50-8.10 [facility] Comment on above: Performed By: #### L IPRF, CDP, CP, TSHX #### [facility] [employer] [address] [place] [address] News Assignment Editor: Chato Aguirre MD Basophils/100 WBC (Bld) 1 % Normal 0-2 [facility] Comment on above: Performed By: #### L IPRF, CDP, CP, TSHX #### [facility] [employer] [address] [place] [address] News Assignment Editor: Chato Aguirre MD Eosinophils (Bld) [#/Vol] 0.14 10*3/uL Normal 0.00-0.44 [facility] Comment on above: Performed By: #### L IPRF, CDP, CP, TSHX #### [place] [address] News Assignment Editor: Chato Aguirre MD Eosinophils/100 WBC (Bld) 2 % Normal 1-4 [facility] Comment on above: Performed By: #### L IPRF, CDP, CP, TSHX #### [facility] [employer] [address] [place] [address] News Assignment Editor: Chato Aguirre MD Erythrocyte distribution width (RBC) [Ratio] 12.4 % Normal 11.8-14.4 [facility] Comment on above: Performed By: #### L IPRF, CDP, CP, TSHX #### [facility] [employer] [address] [place] [address] News Assignment Editor: Chato Aguirre MD Hematocrit (Bld) [Volume fraction] 42.9 % Normal 36.3-47.1 [facility] Comment on above: Performed By: #### L IPRF, CDP, CP, TSHX #### [address] [address] News Assignment Editor: Chato Aguirre MD Hemoglobin (Bld) [Mass/Vol] 13.5 g/dL Normal 11.9-15.1 [facility] Comment on above: Performed By: #### L IPRF, CDP, CP, TSHX #### [address] [address] News Assignment Editor: Chato Aguirre MD Immature granulocytes/100 WBC (Bld) 0 % Normal 0 [facility] Comment on above: Performed By: #### L IPRF, CDP, CP, TSHX #### [address] [address] News Assignment Editor: Chato Aguirre MD Lymphocytes (Bld) [#/Vol] 2.71 10*3/uL Normal 1.10-3.70 [facility] Comment on above: Performed By: #### L IPRF, CDP, CP, TSHX #### [place] [address] News Assignment Editor: Chato Aguirre MD Lymphocytes/100 WBC (Bld) 30 % Normal 24-43 [facility] Comment on above: Performed By: #### L IPRF, CDP, CP, TSHX #### [facility] [employer] [address] [place] [address] News Assignment Editor: Chato Aguirre MD MCH (RBC) [Entitic mass] 27.6 pg Normal 25.2-33.5 [facility] Comment on above: Performed By: #### L IPRF, CDP, CP, TSHX #### [facility] [employer] [address] [place] [address] News Assignment Editor: Chato Aguirre MD MCHC (RBC) [Mass/Vol] 31.5 g/dL Normal 28.4-34.8 [facility] Comment on above: Performed By: #### L IPRF, CDP, CP, TSHX #### [address] [address] News Assignment Editor: Chato Aguirre MD MCV (RBC) [Entitic vol] 87.6 fL Normal 82.6-102.9 [facility] Comment on above: Performed By: #### L IPRF, CDP, CP, TSHX #### [place] [address] News Assignment Editor: Chato Aguirre MD Monocytes (Bld) [#/Vol] 0.48 10*3/uL Normal 0.10-1.20 [facility] Comment on above: Performed By: #### L IPRF, CDP, CP, TSHX #### [place] [address] News Assignment Editor: Chato Aguirre MD Monocytes/100 WBC (Bld) 5 % Normal 3-12 [facility] Comment on above: Performed By: #### L IPRF, CDP, CP, TSHX #### [address] [address] News Assignment Editor: Chato Aguirre MD Neutrophil (Seg) 62 % Normal 36-65 [facility] Comment on above: Performed By: #### L IPRF, CDP, CP, TSHX #### [place] [address] News Assignment Editor: Chato Aguirre MD NRBC Automated 0.0 per 100 WBC Normal 0.0 [facility] Comment on above: Performed By: #### L IPRF, CDP, CP, TSHX #### [address] [address] News Assignment Editor: Chato Aguirre MD Platelet mean volume (Bld) [Entitic vol] 11.6 fL Normal 8.1-13.5 [facility] Comment on above: Performed By: #### L IPRF, CDP, CP, TSHX #### [address] [address] News Assignment Editor: Chato Aguirre MD Platelets (Bld) [#/Vol] 246 10*3/uL Normal 138-453 [facility] Comment on above: Performed By: #### L IPRF, CDP, CP, TSHX #### [address] [address] News Assignment Editor: Chato Aguirre MD RBC (Bld) [#/Vol] 4.90 10*6/uL Normal 3.95-5.11 [facility] Comment on above: Performed By: #### L IPRF, CDP, CP, TSHX #### [address] [address] News Assignment Editor: Chato Aguirre MD WBC (Bld) [#/Vol] 9.2 10*3/uL Normal 3.5-11.3 [facility] Comment on above: Performed By: #### L IPRF, CDP, CP, TSHX #### [address] [address] News Assignment Editor: Chato Aguirre MD Auto Diff Performed NOT REPORTED Normal [facility] Comment on above: Performed By: #### L IPRF, CDP, CP, TSHX #### [address] [address] News Assignment Editor: Chato Aguirre MD Platelet Estimate NOT REPORTED Normal [facility] Comment on above: Performed By: #### L IPRF, CDP, CP, TSHX #### [facility] [employer] [address] [place] [address] News Assignment Editor: Chato Aguirre MD RBC morphology finding Nom (Bld) NOT REPORTED Normal [facility] Comment on above: Performed By: #### L IPRF, CDP, CP, TSHX #### [facility] [address] [place], [place] [id number] News Assignment Editor: Chato Aguirre MD WBC Morphology NOT REPORTED Normal [facility] Comment on above: Performed By: #### L IPRF, CDP, CP, TSHX #### [facility] [address] [place], [place] [phone] News Assignment Editor: Chato Aguirre MD Comp Metabolic Profon 2020 BUN/CRE Ratio NOT REPORTED Normal - [facility] Comment on above: Performed By: #### L IPRF, CDP, CP, TSHX #### [facility] [address] [place] [address] News Assignment Editor: Chato Aguirre MD Staging: NOT REPORTED Normal [facility] Comment on above: Performed By: #### L IPRF, CDP, CP, TSHX #### [facility] [address] [place], [place] [id number] News Assignment Editor: Chato Aguirre MD Comprehensive Metabolic Pane lOrdered By: Miguel Holley on 09-23-2020 Albumin [Mass/Vol] 4.3 g/dL 3.5 - 5.2 g/dL [facility] Phone: Albumin/Globulin [Mass ratio] 1.3 {ratio} [facility] Phone: ALP (Bld) [Catalytic activity/Vol] 49 U/L 35 - 104 U/L [facility] Phone: ALT [Catalytic activity/Vol] 36 U/L High 5 - 33 U/L [facility] Phone: Anion gap [Moles/Vol] 11 mmol/L 9 - 17 mmol/L [facility] Phone: AST [Catalytic activity/Vol] 27 U/L <32 [facility] Phone: Bilirubin [Mass/Vol] 0.34 mg/dL 0.3 - 1 .2 mg/dL [facility] Phone: Calcium [Mass/Vol] 9.5 mg/dL 8.6 - 10. 4 mg/dL [facility] Phone: Chloride [Moles/Vol] 102 mmol/L 98 - 10 7 mmol/L [facility] Phone: CO2 [Moles/Vol] 22 mmol/L 20 - 31 mmol/L [facility] Phone: Creatinine [Mass/Vol] 0.46 mg/dL Low 0.50 - 0.90 mg/dL [facility] Phone: Free PSA/Total PSA [Mass fraction] 7.5 g/dL 6.4 - 8.3 g/dL [facility] Phone: GFR >60 >60 mL/min [employer] Phone: GFR Non- >60 >60 mL/min [facility] Phone: GFR/1.73 sq M.predicted MDRD (S/P/Bld) [Vol rate/Area] [facility] Phone: Comment on above: Average GFR for 20-2 9 years old: 116 mL/min/1.73sq m Chronic Kidney Disease: <60 mL/min/1.73sq m Kidney failure: <15 mL/min/1.73sq m eGFR calculated using average adult body mass. Additional eGFR calculator available at: http://www.HowDo.Unipower Battery/multiple_crcl_2012.htm GFR/1.73 sq M.predicted MDRD (S/P/Bld) [Vol rate/Area] NOT REPORTED [facility] Phone: Glucose [Mass/Vol] 92 mg/dL 70 - 99 mg/dL [facility] Phone: Potassium [Moles/Vol] 4.2 mmol/L 3.7 - 5.3 mmol/L [employer] Work Phone: Sodium [Moles/Vol] 135 mmol/L 135 - 144 mmol/L [facility] [employer] Phone: Urea nitrogen (BldV) [Mass/Vol] 11 mg/dL 6 - 20 mg/dL [facility] [employer] Phone: Urea nitrogen/Creatinine (Bld) [Mass ratio] NOT REPORTED [facility] [employer] Work Phone: Laboratory - Chemistry and C hemistry - challengeOrdered By: Miguel Holley on 09-23-2020 Albumin [Mass/Vol] 4.3 g/dL (3.5-5.2 ) [facility] Work Phone: Comment on above: Note: Responsible Ob server assistant: CEE[employer]OFILE ([id number]) ALT [Catalytic activity/Vol] 36 U/L High (5-33 ) [facility] Work Phone: Comment on above: Note: Responsible Ob server assistant: CEEV [employer]OFILE ([id number]) Anion gap [Moles/Vol] 11 mmol/L (9-17 ) [facility] Work Phone: Comment on above: Note: Responsible Ob server assistant: CEEV AUTOFILE ([id number]) AST [Catalytic activity/Vol] 27 U/L (<32 ) [facility] Work Phone: Comment on above: Note: Responsible Ob server assistant: CEEV [employer]OFILE ([id number]) Bilirubin [Mass/Vol] 0.34 mg/dL (0.3-1.2 ) [facility] Work Phone: Comment on above: Note: Responsible Ob server assistant: CEEV AUTOFILE ([id number]) Calcium [Mass/Vol] 9.5 mg/dL (8.6-10.4 ) [facility] Work Phone: Comment on above: Note: Responsible Ob server assistant: CEEV AUTOFILE ([id number]) Chloride [Moles/Vol] 102 mmol/L (98-107 ) [facility] Work Phone: Comment on above: Note: Responsible Ob server assistant: [employer]EEV [employer]OFILE ([id number]) Cholesterol [Mass/Vol] 186 mg/dL (<200 ) [facility] Work Phone: Comment on above: Note: Cholesterol Gu idelines:<200 [id number] Borderline>240 UndesirableResponsible Observer: CEEV AUTOFILE ([id number]) Cholesterol.total/Chol esterol in HDL [Mass ratio] 3.8 {ratio} (<5 ) [facility] Work Phone: Comment on above: Note: Responsible Ob server assistant: CEEV AUTOFILE ([id number]) CO2 [Moles/Vol] 22 mmol/L (20-31 ) [facility] Work Phone: Comment on above: Note: Responsible Ob server assistant: CEEV [employer]OFILE ([id number]) Creatinine [Mass/Vol] 0.46 mg/dL Low (0.50- 0.90 ) [facility] Work Phone: Comment on above: Note: Responsible Ob server assistant: CEEV [employer] ([id number]) Glucose [Mass/Vol] 92 mg/dL (70-99 ) [facility] Work Phone: Comment on above: Note: Responsible Ob server assistant: CEEV [employer]OFILE ([id number]) Magnesium [Mass/Vol] 49 mg/dL (>40 ) [facility] Work Phone: Comment on above: Note: HDL Guidelines :<40 [id number] Borderline>59 DesirableResponsible Observer: CEEV AUTOFILE ([id number]) Magnesium [Mass/Vol] 102 mg/dL (0-130 ) [facility] Work Phone: Comment on above: Note: LDL Guidelines :<100 [id number] Near to/above [id number] Borderline>159 UndesirableDirect (measured) LDL and calculated LDL are not interchangeable tests.Responsible Observer: CEEV AUTOFILE ([id number]) Magnesium [Mass/Vol] 173 mg/dL High (<150 ) [facility] Work Phone: Comment on above: Note: Triglyceride G uidelines:<150 [id number] [id number] High>499 Very highBased on AHA Guidelines for fasting triglyceride, February 2012.Responsible Observer: CEEV AUTOFILE ([id number]) Potassium [Moles/Vol] 4.2 mmol/L (3.7-5.3 ) [facility] Work Phone: Comment on above: Note: Responsible Ob server assistant: CEEV AUTOFILE ([id number]) Protein [Mass/Vol] 7.5 g/dL (6.4-8.3 ) [facility] Work Phone: Comment on above: Note: Responsible Ob server assistant: CEEV AUTOFILE ([id number]) Sodium [Moles/Vol] 135 mmol/L (135-144 ) [facility] Work Phone: Comment on above: Note: Responsible Ob server assistant: CEEV AUTOFILE ([id number]) Urea nitrogen [Mass/Vol] 11 mg/dL (6-20 ) [facility] Work Phone: Comment on above: Note: Responsible Ob server assistant: CEEV AUTOFILE ([id number]) Laboratory - Hematology and Cell countsOrdered By: Miguel Holley on 09-23-2020 Basophils/100 WBC (Bld) 1 % (0-2 ) [facility] Work Phone: Comment on above: Note: Responsible Ob server assistant: XNV AUTOFILE ([id number]) Eosinophils (Bld) [#/Vol] 0.14 10*3/uL (0.00-0.44 ) [facility] Work Phone: Comment on above: Note: Responsible Ob server assistant: XNV AUTOFILE ([id number]) Eosinophils/100 WBC (Bld) 2 % (1-4 ) [facility] Work Phone: Comment on above: Note: Responsible Ob server assistant: XNV AUTOFILE ([id number]) Erythrocyte distribution width (RBC) [Ratio] 12.4 % (11.8-14.4 ) [facility] Work Phone: Comment on above: Note: Responsible Ob server assistant: XNV AUTOFILE ([id number]) Hematocrit (Bld) [Volume fraction] 42.9 % (36.3-47.1 ) [facility] Work Phone: Comment on above: Note: Responsible Ob server assistant: XNV AUTOFILE ([id number]) Hemoglobin (Bld) [Mass/Vol] 13.5 g/dL (11.9-15.1 ) [facility] Work Phone: Comment on above: Note: Responsible Ob server assistant: XNV AUTOFILE ([id number]) Immature granulocytes/100 WBC (Bld) 0 % (0 ) [facility] Work Phone: Comment on above: Note: Responsible Ob server assistant: XNV AUTOFILE ([id number]) Lymphocytes (Bld) [#/Vol] 2.71 10*3/uL (1.10-3.70 ) [facility] Work Phone: Comment on above: Note: Responsible Ob server assistant: XNV AUTOFILE ([id number]) Lymphocytes/100 WBC (Bld) 30 % (24-43 ) [facility] Work Phone: Comment on above: Note: Responsible Ob server assistant: XNV AUTOFILE ([id number]) MCH (RBC) [Entitic mass] 27.6 pg (25.2-33.5 ) [facility] Work Phone: Comment on above: Note: Responsible Ob server assistant: XNV AUTOFILE ([id number]) MCHC (RBC) [Mass/Vol] 31.5 g/dL (28.4- 34.8 ) [facility] Work Phone: Comment on above: Note: Responsible Ob server assistant: XNV AUTOFILE ([id number]) MCV (RBC) [Entitic vol] 87.6 fL (82.6-102.9 ) [facility] Work Phone: Comment on above: Note: Responsible Ob server assistant: XNV AUTOFILE ([id number]) Monocytes (Bld) [#/Vol] 0.48 10*3/uL (0.10-1.20 ) [facility] Work Phone: Comment on above: Note: Responsible Ob server assistant: XNV AUTOFILE ([id number]) Monocytes/100 WBC (Bld) 5 % (3-12 ) [facility] Work Phone: Comment on above: Note: Responsible Ob server assistant: XNV AUTOFILE ([id number]) Platelet mean volume (Bld) [Entitic vol] 11.6 fL (8.1-13.5 ) [facility] Work Phone: Comment on above: Note: Responsible Ob server assistant: XNV AUTOFILE ([id number]) Platelets (Bld) [#/Vol] 246 10*3/uL (138-453 ) [facility] Work Phone: Comment on above: Note: Responsible Ob server assistant: XNV AUTOFILE ([id number]) RBC (Bld) [#/Vol] 4.90 10*6/uL (3.95-5.11 ) [facility] Work Phone: Comment on above: Note: Responsible Ob server assistant: XNV AUTOFILE ([id number]) RBC morphology finding Nom (Bld) NOT REPORTED [facility] Work Phone: Segmented neutrophils/100 WBC (Bld) 62 % (36-65 ) [facility] Work Phone: Comment on above: Note: Responsible Ob server assistant: XNV AUTOFILE ([id number]) WBC (Bld) [#/Vol] 9.2 10*3/uL (3.5-11.3 ) [facility] Work Phone: Comment on above: Note: Responsible Ob server assistant: XNV AUTOFILE ([id number]) Lipid Prof, Fastingon 2020 Cholesterol,VLDL NOT REPORTED Normal 06-29 [facility] Comment on above: Performed By: #### L IPRF, CDP, CP, TSHX #### [facility] [address] [place] [address] News Assignment Editor: Chato Aguirre MD Lipid, FastingOrdered By: Zandra Holley on 09-23-2020 Cholesterol [Mass/Vol] 186 mg/dL <200 [facility] Phone: Comment on above: Cholesterol Guidelines: <200 Desirable 200-240 Borderline >240 Undesirable Cholesterol in HDL [Mass/Vol] 49 mg/dL >40 [facility] Phone: Comment on above: HDL Guidelines: <40 Undesirable 40-59 Borderline >59 Desirable Cholesterol in LDL [Mass/Vol] 102 mg/dL 0 - 130 mg/dL [facility] Phone: Comment on above: LDL Guidelines: <100 Desirable 100-129 Near to/above Desirable 130-159 Borderline >159 Undesirable Direct (measured) LDL and calculated LDL are not interchangeable tests. Cholesterol in VLDL [Mass/Vol] NOT REPORTED High 1 - 30 mg/dL [facility] Phone: Cholesterol.total/Chol esterol in HDL [Mass ratio] 3.8 {ratio} <5 [facility] Phone: Triglyceride, Fasting 173 mg/dL High <150 [employer] Phone: Comment on above: Triglyceride Guidelines: <150 Desirable 150-199 Borderline 200-499 High >499 Very high Based on AHA Guidelines for fasting triglyceride, February 2012. No Panel InformationOrdered By: Miguel Holley on 09-23-2020 Interpretation and review of laboratory results Abnormal [facility] Phone: (cont.) See Note [facility] Work Phone: Comment on above: Note: Average GFR fo r 20-29 years old:116 mL/min/1.73sq mChronic Kidney Disease:<60 mL/min/1.73sq mKidney failure:<15 mL/min/1.73sq meGFR calculated using average adult body mass. Additional eGFR calculatoravailable at:http://www.globalrph.com/multiple_crcl_2012.htmResponsible Observer: CEEV AUTOFILE ([id number]) Abs. Basophil 0.05 k/uL (0.00-0.20 ) [facility] Work Phone: Comment on above: Note: Responsible Ob server assistant: XNV AUTOFILE ([id number]) Abs.Imm.Granulocyte <0.03 k/uL (0.00-0. 30 ) [facility] Work Phone: Comment on above: Note: Responsible Ob server assistant: XNV AUTOFILE ([id number]) Abs.Neutrophil (Seg) 5.79 k/uL (1.50-8 .10 ) [facility] Work Phone: Comment on above: Note: Responsible Ob server assistant: XNV AUTOFILE ([id number]) Albumin/Glob Ratio 1.3 (1.0-2.5 ) [facility] Work Phone: Comment on above: Note: Responsible Ob server assistant: CEEV AUTOFILE ([id number]) Alkaline Phos 49 U/L (35-104 ) [facility] Work Phone: Comment on above: Note: Responsible Ob server assistant: CEEV AUTOFILE ([id number]) Auto Diff Performed NOT REPORTED [facility] Work Phone: BUN/CRE Ratio NOT REPORTED (9-20 ) [facility] Work Phone: Cholesterol,VLDL NOT REPORTED mg/dL (1-30 ) [facility] Work Phone: GFR, Amer >60 mL/min (>60 ) [facility] Work Phone: Comment on above: Note: Responsible Ob server assistant: CEEV AUTOFILE ([id number]) GFR,non Amer >60 mL/min (>60 ) [facility] Work Phone: Comment on above: Note: Responsible Ob server assistant: CEEV AUTOFILE ([id number]) NRBC Automated 0.0 per_100_WBC (0.0 ) [facility] Work Phone: Comment on above: Note: Responsible Ob server assistant: XNV AUTOFILE ([id number]) Platelet Estimate NOT REPORTED [facility] Work Phone: Reported Physicians See Note [facility] Work Phone: Comment on above: Note: Reported Physi cians:Ordering: Kyler AimeeAttending: Kyler, AimeeReferring: Cotton, Miguel Staging: NOT REPORTED [facility] Work Phone: Thyroid Stim. Horm. 3.38 mIU/L (0.30-5. 00 ) [facility] Work Phone: Comment on above: Note: Responsible Ob server assistant: CEEV AUTOFILE ([id number]) WBC Morphology NOT REPORTED [facility] Work Phone: TSH with ReflexOrdered By: Kamryn Holley on 09-23-2020 TSH Qn 3.38 m[IU]/L [facility] Work Phone: APTTon 04-08-2020 aPTT Coag (Bld) [Time] 25.2 s [employer] [place], [place] Comment on above: IV Heparin Therapy Range: 62.0-94.0 Brain Natriuretic Peptideon 04-08-2020 Natriuretic peptide B (Bld) [Mass/Vol] pg/mL <300 pg/mL [place] Comment on above: Pro-BNP results ayse ot be compared to BNP results. Natriuretic peptide B (Bld) [Mass/Vol] Pro-BNP Reference Range: [place], [place] Comment on above: Rule Out: <300 [place] Zone: Age <50 300-450 Age 50-75 300-900 Age >75 300-1800 Usually represents mild to moderate HF but other cardiopulmonary causes cannot be ruled out. Rule In: Age <50 >450 Age 50-75 >900 Age >75 >1800 CBCon 04-08-2020 Erythrocyte distribution width (RBC) [Ratio] 11.9 % 11.8 - 14.4 % [place] Hematocrit (Bld) [Volume fraction] 37.9 % 36.3 - 47.1 % [place] Hemoglobin (Bld) [Mass/Vol] 12.5 g/dL 11.9 - 15.1 g/dL [place] MCH (RBC) [Entitic mass] 27.8 pg 25.2 - 33.5 pg [place] MCHC (RBC) [Mass/Vol] 33.0 g/dL 28.4 - 34.8 g/dL [place] MCV (RBC) [Entitic vol] 84.2 fL 82.6 - 102.9 fL [place] Platelet mean volume (Bld) [Entitic vol] 10.9 fL 8.1 - 13.5 fL [place] Platelets (Bld) [#/Vol] 184 10*3/uL [place] RBC (Bld) [#/Vol] 4.50 10*6/uL 3.95 - 5.1 1 m/uL [place] WBC (Bld) [#/Vol] 7.8 10*3/uL [place] WBC (Bld) [#/Vol] 0.0 10*3/uL 0.0 per 10 0 WBC [place] COVID-19on 04-08-2020 Interpretation and review of laboratory results Abnormal [place] SARS-CoV-2, Rapid DETECTED Abnormal Not Detected [place] Comment on above: Rapid NAAT: The [...] this assay. Fact sheet for Healthcare Providers: https://www.fda.gov/media/856330/download Fact sheet for Patients: https://www.fda.gov/media/608879/download Methodology: Isothermal Nucleic Acid Amplification Results reported to the appropriate Health Department Source .NASOPHARYNGEAL SWAB [place], [place] CT CHEST PULMONARY EMBOLISM W CONTRASTon 04-08-2020 Unremarkable appeara nce of the chest with no evidence of pulmonary embolism and clear lungs. Incidentally noted hepatic fatty infiltration. [place] EXAMINATION: CTA OF THE CHEST 04/08/2020 [...] No significant osseous or soft tissue abnormality. [place], [place] Jean Marie, Mhpn Incoming Radiant Results From [employer] - 04/08/2020 4:12 PM EST EXAMINATION: CTA [...] clear lungs. Incidentally noted hepatic fatty infiltration. [place] Comprehensive Metabolic Pane fermin 04-08-2020 Albumin [Mass/Vol] 4.1 g/dL 3.5 - 5.2 g/dL [place] Albumin/Globulin [Mass ratio] 1.4 {ratio} [place] ALP [Catalytic activity/Vol] 62 U/L 35 - 104 U/L [place] ALT [Catalytic activity/Vol] 19 U/L 5 - 33 U/L [place] Anion gap [Moles/Vol] 10 mmol/L 9 - 17 mmol/L [place] AST [Catalytic activity/Vol] 20 U/L <32 [place] Bilirubin Ql (U) 0.48 mg/dL 0.3 - 1.2 mg/dL [place] Bun/Cre Ratio 23 High [place] Calcium [Mass/Vol] 8.9 mg/dL 8.6 - 10. 4 mg/dL [place] Chloride [Moles/Vol] 102 mmol/L 98 - 10 7 mmol/L [place] CO2 [Moles/Vol] 23 mmol/L 20 - 31 mmol/L [place] Creatinine [Mass/Vol] 0.47 mg/dL Low 0.5 - 0.9 mg/dL [place] GFR >60 >60 mL/min [place] GFR Non- >60 >60 mL/min [place] Glucose [Mass/Vol] 88 mg/dL 70 - 99 mg/dL [place] Interpretation and review of laboratory results Abnormal [place] Potassium [Moles/Vol] 3.7 mmol/L 3.7 - 5.3 mmol/L [place] Protein [Mass/Vol] 7.1 g/dL 6.4 - 8.3 g/dL [place] Sodium [Moles/Vol] 135 mmol/L 135 - 144 mmol/L [place] Urea nitrogen [Mass/Vol] 11 mg/dL 6 - 20 mg/dL [place] Metabolic Panelon 04-08-2020 GFR/1.73 sq M predicted among non-blacks MDRD (S/P/Bld) [Vol rate/Area] [place] Comment on above: Stage 1: Some [...] body mass. Additional eGFR calculator available at: http://www.Stonewedge/multiple_crcl_2012.htm Otheron 04-08-2020 SARS-CoV-2 [place], [place] , Urineon 0 Beta HCG ( test) Ql (U) Negative NEGATIVE [place] Comment on above: Specimens with hCG l evels near the threshold of the test (25 mIU/mL) may give a negative or indeterminate result. In such cases, another test should be performed with a new specimen in 48-72 hours. If early is suspected clinically in this setting, correlation with quantitative serum b-hCG level is suggested. [facility] has confirmed the use of plasma for this test. This has not been cleared or approved by the U.S. Food and Drug Administration. The FDA has determined that such clearance is not necessary. Protime-INRon 04-08-2020 INR Coag (PPP) [Relative time] 1.0 {INR} [place] Comment on above: Non-therapeutic Range: INR = 0.9-1.2 Therapeutic Range: Moderate Anticoagulant Intensity: INR = 2.0-3.0 High Anticoagulant Intensity: INR = 2.5-3.5 PT Coag (PPP) [Time] 13.2 s [place] Troponinon 04-08-2020 Troponin I.cardiac [Mass/Vol] NOT REPORTED [place] Troponin T.cardiac [Mass/Vol] NOT REPORTED <0.03 ng/mL [employer] Troponin, High Sensitivity <6 0 - 14 ng/L [place] Comment on above: High Sensitivity Troponin values cannot be compared with other Troponin methodologies. Patients with high levels of Biotin oral intake (i.e >5mg/day) may have falsely decreased Troponin levels. Samples collected within 8 hours of biotin intake may require additional information for diagnosis. CBC Auto Differentialon Basophils (Bld) [#/Vol] 0.05 10*3/uL [facility] Phone: Basophils/100 WBC (Bld) 1 % 0 - 2 % [facility] Phone: Differential Type NOT REPORTED [facility] Phone: Eosinophils (Bld) [#/Vol] 0.15 10*3/uL [facility] Phone: Eosinophils/100 WBC (Bld) 1 % 1 - 4 % [facility] Phone: Erythrocyte distribution width (RBC) [Ratio] 12.1 % 11.8 - 14.4 % [facility] Phone: Hematocrit (Bld) [Volume fraction] 44.5 % 36.3 - 47.1 % [facility] Phone: Hemoglobin (Bld) [Mass/Vol] 14.0 g/dL 11.9 - 15.1 g/dL [facility] Phone: Immature granulocytes (Bld) [#/Vol] 0 % 0 [facility] Phone: Immature granulocytes (Bld) [#/Vol] 10*3/uL [facility] Phone: Interpretation and review of laboratory results Abnormal [facility] Phone: Lymphocytes (Bld) [#/Vol] 2.83 10*3/uL [facility] Phone: Lymphocytes/100 WBC (Bld) 27 % 24 - 43 % [facility] Phone: MCH (RBC) [Entitic mass] 27.6 pg 25.2 - 33.5 pg [facility] Phone: MCHC (RBC) [Mass/Vol] 31.5 g/dL 28.4 - 34.8 g/dL [facility] Phone: MCV (RBC) [Entitic vol] 87.6 fL 82.6 - 102.9 fL [facility] Phone: Monocytes (Bld) [#/Vol] 0.52 10*3/uL [facility] Phone: Monocytes/100 WBC (Bld) 5 % 3 - 12 % [facility] Phone: Platelet mean volume (Bld) [Entitic vol] 12.0 fL 8.1 - 13.5 fL [facility] Phone: Platelets (Bld) [#/Vol] NOT REPORTED [facility] Phone: Platelets (Bld) [#/Vol] 241 10*3/uL [facility] Phone: RBC (Bld) [#/Vol] 5.08 10*6/uL 3.95 - 5.1 1 m/uL [facility] Phone: RBC morphology finding Nom (Bld) NOT REPORTED [facility] Phone: Segmented neutrophils/100 WBC (Bld) 66 % High 36 - 65 % [facility] Phone: Segs Absolute 7.04 [facility] [employer] Work Phone: WBC (Bld) [#/Vol] 10.6 10*3/uL [facility] Phone: WBC (Bld) [#/Vol] 0.0 10*3/uL 0.0 per 10 0 WBC [facility] Phone: WBC Morphology NOT REPORTED [employer] [facility] Work Phone: Cardiacon 07-06-2019 Cholesterol [Mass/Vol] 198 mg/dL (<200) [facility] Work Phone: Comment on above: Note: Cholesterol Gu idelines:<200 [id number] Borderline>240 UndesirableResponsible Observer: CCEV AUTOFILE ([id number]) Comprehensive Metabolic Pane fermin 07-06-2019 Albumin [Mass/Vol] 4.5 g/dL 3.5 - 5.2 g/dL [facility] Work Phone: Albumin/Globulin [Mass ratio] 1.4 {ratio} [facility] Work Phone: ALP [Catalytic activity/Vol] 62 U/L 35 - 104 U/L [facility] Phone: ALT [Catalytic activity/Vol] 39 U/L High 5 - 33 U/L [facility] Phone: Anion gap [Moles/Vol] 16 mmol/L 9 - 17 mmol/L [facility] Work Phone: AST [Catalytic activity/Vol] 32 U/L High <32 [facility] Phone: Bilirubin Ql (U) 0.25 mg/dL Low 0.3 - 1.2 mg/dL [facility] Phone: Bun/Cre Ratio NOT REPORTED [employer] [facility] Work Phone: Calcium [Mass/Vol] 9.8 mg/dL 8.6 - 10. 4 mg/dL [facility] Work Phone: Chloride [Moles/Vol] 103 mmol/L 98 - 10 7 mmol/L [facility] Phone: CO2 [Moles/Vol] 19 mmol/L Low 20 - 31 mmol/L [facility] Phone: Creatinine [Mass/Vol] 0.51 mg/dL 0.5 - 0.9 mg/dL [facility] Work Phone: GFR >60 >60 mL/min [employer] Phone: GFR Non- >60 >60 mL/min [facility] Phone: GFR/1.73 sq M predicted among non-blacks MDRD (S/P/Bld) [Vol rate/Area] [facility] Phone: Comment on above: Average GFR for 20-2 9 years old: 116 mL/min/1.73sq m Chronic Kidney Disease: <60 mL/min/1.73sq m Kidney failure: <15 mL/min/1.73sq m eGFR calculated using average adult body mass. Additional eGFR calculator available at: http://www.Stonewedge/multiple_crcl_2012.htm GFR/1.73 sq M predicted among non-blacks MDRD (S/P/Bld) [Vol rate/Area] NOT REPORTED [facility] Phone: Glucose [Mass/Vol] 89 mg/dL 70 - 99 mg/dL [facility] Phone: Interpretation and review of laboratory results Abnormal [facility] Phone: Potassium [Moles/Vol] 4.6 mmol/L 3.7 - 5.3 mmol/L [facility] Phone: Protein [Mass/Vol] 7.8 g/dL 6.4 - 8.3 g/dL [facility] Phone: Sodium [Moles/Vol] 138 mmol/L 135 - 144 mmol/L [facility] Phone: Urea nitrogen [Mass/Vol] 14 mg/dL 6 - 20 mg/dL [facility] Phone: Hematologyon 07-06-2019 Basophils/100 WBC (Bld) 1 % (0-2) [facility] Work Phone: Comment on above: Note: Responsible Ob server assistant: XNV AUTOFILE ([id number]) Eosinophils (Bld) [#/Vol] 0.15 10*3/uL (0.00-0.44) [facility] Work Phone: Comment on above: Note: Responsible Ob server assistant: XNV AUTOFILE ([id number]) Eosinophils/100 WBC (Bld) 1 % (1-4) [facility] Work Phone: Comment on above: Note: Responsible Ob server assistant: XNV AUTOFILE ([id number]) Hematocrit (Bld) [Volume fraction] 44.5 % (36.3-47.1) [facility] Work Phone: Comment on above: Note: Responsible Ob server assistant: XNV AUTOFILE ([id number]) Hemoglobin (Bld) [Mass/Vol] 14.0 g/dL (11.9-15.1) [facility] Work Phone: Comment on above: Note: Responsible Ob server assistant: XNV AUTOFILE ([id number]) Lymphocytes (Bld) [#/Vol] 2.83 10*3/uL (1.10-3.70) [facility] Work Phone: Comment on above: Note: Responsible Ob server assistant: XNV AUTOFILE ([id number]) Lymphocytes/100 WBC (Bld) 27 % (24-43) [facility] Work Phone: Comment on above: Note: Responsible Ob server assistant: XNV AUTOFILE ([id number]) MCH (RBC) [Entitic mass] 27.6 pg (25.2-33.5) [facility] Work Phone: Comment on above: Note: Responsible Ob server assistant: XNV AUTOFILE ([id number]) MCV (RBC) [Entitic vol] 87.6 fL (82.6-102.9 ) [facility] Work Phone: Comment on above: Note: Responsible Ob server assistant: XNV AUTOFILE ([id number]) Monocytes (Bld) [#/Vol] 0.52 10*3/uL (0.10-1.20) [facility] Work Phone: Comment on above: Note: Responsible Ob server assistant: XNV AUTOFILE ([id number]) Monocytes/100 WBC (Bld) 5 % (3-12) [facility] Work Phone: Comment on above: Note: Responsible Ob server assistant: XNV AUTOFILE ([id number]) Platelets (Bld) [#/Vol] NOT REPORTED [facility] Work Phone: Platelets (Bld) [#/Vol] 241 10*3/uL (138-453) [facility] Work Phone: Comment on above: Note: Responsible Ob server assistant: XNV AUTOFILE ([id number]) RBC (Bld) [#/Vol] 5.08 10*6/uL (3.95-5.11) [facility] Work Phone: Comment on above: Note: Responsible Ob server assistant: XNV AUTOFILE ([id number]) RBC morphology finding Nom (Bld) NOT REPORTED [facility] Work Phone: WBC (Bld) [#/Vol] 0.0 per_100_WBC (0.0) [facility] Work Phone: Comment on above: Note: Responsible Ob server assistant: XNV AUTOFILE ([id number]) WBC (Bld) [#/Vol] 10.6 10*3/uL (3.5-11.3) [facility] Work Phone: Comment on above: Note: Responsible Ob server assistant: XNV AUTOFILE ([id number]) Lipid, Fastingon 07-06-2019 Cholesterol [Mass/Vol] 198 mg/dL <200 [facility] Work Phone: Comment on above: Cholesterol Guidelines: <200 Desirable 200-240 Borderline >240 Undesirable Cholesterol in HDL [Mass/Vol] 53 mg/dL >40 [facility] [employer] Phone: Comment on above: HDL Guidelines: <40 Undesirable 40-59 Borderline >59 Desirable Cholesterol in LDL [Mass/Vol] 118 mg/dL 0 - 130 mg/dL [facility] [employer] [facility] Phone: Comment on above: LDL Guidelines: <100 Desirable 100-129 Near to/above Desirable 130-159 Borderline >159 Undesirable Direct (measured) LDL and calculated LDL are not interchangeable tests. Cholesterol in VLDL [Mass/Vol] NOT REPORTED 1 - 30 mg/dL [facility] Work Phone: Cholesterol.total/Chol esterol in HDL [Mass ratio] 3.7 {ratio} <5 [facility] [employer] Work Phone: Triglyceride, Fasting 135 mg/dL <150 [facility] Work Phone: Comment on above: Triglyceride Guidelines: <150 Desirable 150-199 Borderline 200-499 High >499 Very high Based on AHA Guidelines for fasting triglyceride, February 2012. Metabolic Panelon 07-06-2019 Albumin [Mass/Vol] 4.5 g/dL (3.5-5.2) [facility] Work Phone: Comment on above: Note: Responsible Ob server assistant: CCEV AUTOFILE ([id number]) ALT [Catalytic activity/Vol] 39 U/L High (5-33) [facility] Work Phone: Comment on above: Note: Responsible Ob server assistant: CCEV AUTOFILE ([id number]) Anion gap [Moles/Vol] 16 mmol/L (9-17) [facility] Work Phone: Comment on above: Note: Responsible Ob server assistant: CCEV AUTOFILE ([id number]) AST [Catalytic activity/Vol] 32 U/L High (<32) [facility] Work Phone: Comment on above: Note: Responsible Ob server assistant: CCEV AUTOFILE ([id number]) Bilirubin [Mass/Vol] 0.25 mg/dL Low (0.3-1.2) [facility] Work Phone: Comment on above: Note: Responsible Ob server assistant: CCEV AUTOFILE ([id number]) Calcium [Mass/Vol] 9.8 mg/dL (8.6-10.4) [facility] Work Phone: Comment on above: Note: Responsible Ob server assistant: CCEV AUTOFILE ([id number]) Chloride [Moles/Vol] 103 mmol/L (98-107) [facility] Work Phone: Comment on above: Note: Responsible Ob server assistant: CCEV AUTOFILE ([id number]) CO2 [Moles/Vol] 19 mmol/L Low (20-31) [facility] Work Phone: Comment on above: Note: Responsible Ob server assistant: CCEV AUTOFILE ([id number]) Creatinine [Mass/Vol] 0.51 mg/dL (0.50-0.90) [facility] Work Phone: Comment on above: Note: Responsible Ob server assistant: CCEV AUTOFILE ([id number]) Glucose [Mass/Vol] 89 mg/dL (70-99) [facility] Work Phone: Comment on above: Note: Responsible Ob server assistant: CCEV AUTOFILE ([id number]) Potassium [Moles/Vol] 4.6 mmol/L (3.7-5.3) [facility] Work Phone: Comment on above: Note: Responsible Ob server assistant: CCEV AUTOFILE ([id number]) Protein [Mass/Vol] 7.8 g/dL (6.4-8.3) [facility] Work Phone: Comment on above: Note: Responsible Ob server assistant: CCEV AUTOFILE ([id number]) Sodium [Moles/Vol] 138 mmol/L (135-144) [facility] Work Phone: Comment on above: Note: Responsible Ob server assistant: CCEV AUTOFILE ([id number]) Urea nitrogen [Mass/Vol] 14 mg/dL (6-20) [facility] Work Phone: Comment on above: Note: Responsible Ob server assistant: CCEV AUTOFILE ([id number]) Otheron 07-06-2019 (cont.) See Note [facility] Work Phone: Comment on above: Note: Average GFR fo r 20-29 years old:116 mL/min/1.73sq mChronic Kidney Disease:<60 mL/min/1.73sq mKidney failure:<15 mL/min/1.73sq meGFR calculated using average adult body mass. Additional eGFR calculatoravailable at:http://www.HowDo.[employer]/multiple_crcl_2012.htmResponsible Observer: CCEV AUTOFILE ([id number]) Abs. Basophil 0.05 k/uL (0.00-0.20) [facility] Work Phone: Comment on above: Note: Responsible Ob server assistant: XNV AUTOFILE ([id number]) Abs.Imm.Granulocyte <0.03 k/uL (0.00-0.30) [facility] Work Phone: Comment on above: Note: Responsible Ob server assistant: XNV AUTOFILE ([id number]) Abs.Neutrophil (Seg) 7.04 k/uL (1.50-8.10) [facility] Work Phone: Comment on above: Note: Responsible Ob server assistant: XNV AUTOFILE (3018) Albumin/Glob Ratio 1.4 (1.0-2.5) [facility] Work Phone: Comment on above: Note: Responsible Ob server assistant: CCEV AUTOFILE (3002) Alkaline Phos 62 U/L (35-104) [facility] Work Phone: Comment on above: Note: Responsible Ob server assistant: CCEV AUTOFILE (3002) Auto Diff Performed NOT REPORTED [facility] Work Phone: BUN/CRE Ratio NOT REPORTED (9-20) [facility] Work Phone: Cholesterol,HDL 53 mg/dL (>40) [facility] Work Phone: Comment on above: Note: HDL Guidelines :<40 Bmtqqhiqltc79-09 Borderline>59 DesirableResponsible Observer: CCEV AUTOFILE (3002) Cholesterol,LDL 118 mg/dL (0-130) [facility] Work Phone: Comment on above: Note: LDL Guidelines :<100 Cpqbgofxr086-197 Near to/above Hsabcirbw157-003 Borderline>159 UndesirableDirect (measured) LDL and calculated LDL are not interchangeable tests.Responsible Observer: CCEV AUTOFILE (3002) Cholesterol,VLDL NOT REPORTED mg/dL (-30) [facility] Work Phone: [phone] Cholesterol.total/Chol esterol in HDL [Mass ratio] 3.7 {ratio} (<5) [facility] Work Phone: [phone] Comment on above: Note: Responsible Ob server assistant: CCEV AUTOFILE (3002) Erythrocyte distribution width (RBC) [Ratio] 12.1 % (11.8-14.4) [facility] Work Phone: [phone] Comment on above: Note: Responsible Ob server assistant: XNV AUTOFILE (3018) Free Insulin 34 uIU/mL High (3-19) [facility] Work Phone: [phone] Comment on above: Note: Responsible Ob server assistant: LAB ARUP (0603) GFR, Amer >60 mL/min (>60) [facility] Work Phone: [phone] Comment on above: Note: Responsible Ob server assistant: CCEV AUTOFILE (3002) GFR,non Amer >60 mL/min (>60) [facility] Work Phone: Comment on above: Note: Responsible Ob server assistant: CCEV AUTOFILE (3002) Immature granulocytes (Bld) [#/Vol] 0 % (0) [facility] Work Phone: Comment on above: Note: Responsible Ob server assistant: XNV AUTOFILE (3018) MCHC (RBC) [Mass/Vol] 31.5 g/dL (28.4-34.8) [facility] Work Phone: Comment on above: Note: Responsible Ob server assistant: XNV AUTOFILE (3018) Performing Lab: see note [facility] Work Phone: Comment on above: Note: [facility] [address] [facility] [address] Note: [facility] [address] [facility] [address] Platelet mean volume (Bld) [Entitic vol] 12.0 fL (8.1-13.5) [facility] Work Phone: Comment on above: Note: Responsible Ob server assistant: XNV AUTOFILE (3018) Reported Physicians See Note [facility] Work Phone: Comment on above: Note: Reported Physi cians:Ordering: Allyson Floyd AAttending: No FloydthiaReferring: Allyson Floyd Segmented neutrophils/100 WBC (Bld) 66 % High (36-65) [facility] Work Phone: Comment on above: Note: Responsible Ob server assistant: XNV AUTOFILE (8755) Staging: NOT REPORTED [facility] Work Phone: Thyroid Stim. Horm. 4.15 mIU/L (0.30-5.00) [facility] Work Phone: Comment on above: Note: Responsible Ob server assistant: CCEV AUTOFILE (3002) Thyroxine, Free 1.21 ng/dL (0.93-1.70) [facility] Work Phone: Comment on above: Note: Responsible Ob server assistant: CCEV AUTOFILE (3002) Total Insulin 46 uIU/mL [...] 6.0. Reference intervalsestablished for fasting specimens.Performed by [employer],[address] [place] [address] ayq.[employer], [place] Xiong MD, Lab. DirectorResponsible Observer: LAB KIERAN (0603) Triglyceride,Fasting 135 mg/dL (<150) [facility] Work Phone: Comment on above: Note: Triglyceride G uidelines:<150 [id number] Diruzccxxt673-361 High>499 Very highBased on AHA Guidelines for fasting triglyceride, February 2012.Responsible Observer: CCEV AUTOFILE (5631) Triiodothyronine T3 150 ng/dL (80-200) [facility]alt [facility] Work Phone: Comment on above: Note: Responsible Ob server assistant: CEEV AUTOFILE (8512) WBC Morphology NOT REPORTED Health [facility] Work Phone: T3on 07-06-2019 T3, Total 150 ng/dL 80 - 200 ng/dL [facility] Work Phone: T4, Freeon 07-06-2019 Thyroxine, Free 1.21 ng/dL 0.93 - 1.7 ng/dL [facility] Work Phone: TSH without Reflexon 020 TSH Qn 4.15 m[IU]/L [facility] Work Phone: US NON OB TRANSVAGINALon Satisfactory IUD position. RECOMMENDATIONS: No follow-up imaging is recommended. Reference: US BPRs based on Radiology 2010 Jan;256(3):943-54; CT/MR BPRs based on J Am Joanne Radiol 2013;10:675-681. [place] EXAMINATION: PELVIC ULTRASOUND 02/02/2019 TECHNIQUE: Transvaginal [...] Free Fluid: No evidence of free fluid. [facility] Jean Marie, Mhpn Incoming Radiant Results From [employer] - 02/02/2019 8:44 AM EDT EXAMINATION: PELVIC [...] based on J Am Joanne Radiol 2013;10:675-681. [facility] CNOVon 08-21-2018 CNOV Office Visit (WALKBR ) ----- ESTEFANIA NAVARRETE ([id number]) 1995 F Date Time Provider Department 08/21/18 12:00 PM MIGUEL TENA (DIANELYS) WALKBR During your visit today, we recorded the following information about you: Temperature Pulse Respiration Blood pressure 97.6 degrees 99/minute 16/minute 136/81 Weight 109.8 kg Miguel Tena APRN.CNP 08/21/2018 12:46 PM Signed Subjective The history is provided by the patient. No cyber defense forensics analyst was used. Cough This is a new [...] is a safe and effective decongestant 3. [place] may offer relief of nasal and head [...] help open respiratory and sinus passages. - [place] may offer relief of nasal and head [...] get worse. Thank you for coming to [facility] today. I appreciate your confidence in choosing the [facility] for your medical care. Miguel Tena APRN.PRE BILLING CLINICIAN F [facility] [address] [facility] [address] Referring Provider: SELF [200] Allergies [...] is a safe and effective decongestant 3. [place] may offer relief of nasal and head [...] help open respiratory and sinus passages. - [place] may offer relief of nasal and head [...] get worse. Thank you for coming to [facility] today. I appreciate your confidence in choosing the [facility] for your medical care. Miguel Tena APRN.[facility] [place] [address] [facility] [address] Prescriptions ordered this encounter Disp [...] by MIGUEL TENA CNP on 08/21/18 Normal [facility] PROGRESSon 08-21-2018 Protein mass conc HNO ID: [id number] Author: Miguel Tena Service: ? Author Type: Nurse Practitioner Type: Progress Notes Filed: 08/21/2018 12:46 PM Note Text: Subjective The history is provided by the patient. No cyber defense forensics analyst was used. Cough This is a new [...] 3-5 days or get worse Miguel Tena APRN.PRE BILLING CLINICIAN Normal [facility] CNCOon 12-22-2017 CNCO Letter Text Erica Velazquez MD [facility] [address] [place] [address] Estefania Navarrete December 22, 2017 Estefania Navarrete [address] [place] [id number] Dear Ms. Navarrete, It was noted that you did not keep your scheduled appointment on 12-22-17. It is important to contact the office in advance if you are unable to keep your appointment so that it is available for other patients. Your medical care is important to us. Please call our office to reschedule an appointment. Sincerely, Erica Velazquez MD [facility] Consult Reporton 01-05-2017 Consult Report Patient: JITENDRA NAVARRETE Age: 21 years Sex: Female : 1995 Associated Diagnoses: None Author: TYRON MA RES, KAREN [facility] Podiatry DepartmentReason for Consult: Active Problems [...] medication- Patient to follow up with Dr. Ryees on in officeThank you for the consultationPatient seen and plan discussed with attending physician, Dr. Jaime Shepard [phone] ically Signed by: KAREN SHEPARD DPM, RES on 01/04/2017 13:59 EDTElectronically Co-Signed by: KAREN SHEPARD DPM, RESon 01/04/2017 14:37 EDTElectronically Co-Signed by: Rene REYES DPM 01/05/2017 18:28 EDT Normal [facility] APTTon 01-04-2017 aPTT 29.9 Second(s) Normal [facility] Comment on above: Result Comment: VERI FIED by Discern Expert. Performed By: #### 1 91546, 6960502, 961637, 993436, 678175, 568262 ####[facility] [address]kgckx78364 [place] [address] Medical Director: David Doe MD aPTT 25.9 Second(s) Normal 25.0-36.0 [facility] Comment on above: Performed By: #### 1 82045, 2927675, 305788, 344762, 778814, 670329 ####[facility] Vxfpwbiy14255 [place] [address] Medical Director: David Doe MD AUTO DIFFon 01-04-2017 Basophils Auto #/vol (Bld) 0.04 x1000 Normal 0.00-0.20 [facility] Comment on above: Performed By: #### 1 26381, 5435700, 895157, 406424, 996406, 641865 ####[facility] Nctyyzpg03477 [place] [address] Medical Director: David Doe MD Basos % 0.5 % Normal [facility] Comment on above: Performed By: #### 1 01350, 1881927, 789320, 544469, 293478, 350648 ####[facility] Eifedzsd12335 [place] [address] Medical Director: David Doe MD Eos Count 0.10 x1000 Normal 0.00-0.50 [facility] Comment on above: Performed By: #### 1 76060, 7961538, 285458, 394207, 200600, 032342 ####[facility] [address] [place] [address] Medical Director: David Doe MD Eosinophils/100 leukocytes 1.0 % Normal [facility] Comment on above: Performed By: #### 1 90672, 2601851, 613808, 391038, 835279, 604115 ####[facility] [address]ms[address] [place] [address] Medical Director: David Doe MD Lymphocytes 2.84 x1000 Normal 1.20-4.80 [facility] Comment on above: Performed By: #### 1 46806, 0669315, 234133, 281944, 506314, 949284 ####[facility] [address] [place] [address] Medical Director: David Deo MD Lymphocytes/100 leukocytes 29.4 % Normal [facility] Comment on above: Performed By: #### 1 30294, 3065762, 056463, 376489, 407695, 634410 ####[facility] [address] [place] [address] Medical Director: David Doe MD [place] Count 0.68 x1000 Normal 0.10-1.00 [facility] Comment on above: Performed By: #### 1 81063, 4445690, 143240, 103244, 174000, 172503 ####[facility] Vnmlraxn03146 [place] [address] Medical Director: David Doe MD Monocytes/100 leukocytes 7.0 % Normal [facility] Comment on above: Performed By: #### 1 71876, 5692133, 822459, 689973, 458812, 777644 ####[facility] Becwrhtu18101 [place] [address] Medical Director: David Doe MD Neutrophils 5.98 x1000 Normal 1.40-8.80 [facility] Comment on above: Performed By: #### 1 16464, 2137904, 696249, 859647, 165906, 069542 ####[facility] Nmywypko[address] [place] [address] Medical Director: David Doe MD Neutrophils/100 WBC Auto (Bld) 62.0 % Normal [facility] Comment on above: Performed By: #### 1 37903, 7656289, 205133, 191653, 166288, 967675 ####[facility] Mrkofiqe95172 [place] [address] Medical Director: David Doe MD COMPMETAon 01-04-2017 Globulin 4.0 g/dL Normal [facility] Comment on above: Performed By: #### 1 53552, 2890697, 675981, 680765, 602169, 951858 ####[facility] [address]plybovh[address] [place] [address] Medical Director: David Doe MD Osmolality 277 mOsm/kg Normal 275-295 [facility] Comment on above: Performed By: #### 1 90900, 9686193, 954015, 339553, 118184, 409449 ####[facility] Lsenvirs29532 [place] [address] Medical Director: David Doe MD eGFR (non-black) mL/min/{1.73_m2} Normal [facility] Comment on above: Result Comment: Afri can Citizen Of [place] GFR Calc Performed By: #### 1 24538, 6124609, 086911, 029877, 159840, 279384 ####[facility] Oxrlfyrh59994 [place] [address] Medical Director: David Doe MD Result Comment: Non GFR CalcMedical judgement is necessary to interpret GFR. The calculated GFR may not accurately reflect renal status in patients >70 years, women, acutely ill hospitalized patients and patients with acute renal failure or known renal disease.Note:Creatinine clearance (not GFR) should be used for drug dosing. Albumin/Globulin Ratio 0.8 {ratio} Normal [facility] Comment on above: Performed By: #### 1 17925, 3236337, 474160, 383769, 411984, 991155 ####[facility] [address]oyehxah45[address] [place], [place] [address]) [phone] Director: David Doe MD BUN/Creatinine Ratio 17.6 mg/mg Normal [facility] Comment on above: Performed By: #### 1 44774, 9465962, 650434, 298473, 663716, 771163 ####[facility] [address]ukawqwj[address] [place] [address] Medical Director: David Doe MD Alk Phos 61 unit/L Normal 45-117 [facility] Comment on above: Performed By: #### 1 85225, 9008200, 027182, 084770, 317838, 906176 ####[facility] [address]cghq78364 [place] [address] Medical Director: David Doe MD Bilirubin (total) 0.41 mg/dL Normal 0.20-1.00 [facility] Comment on above: Performed By: #### 1 79983, 9055059, 735432, 479585, 393768, 521614 ####[facility] [address]nslkvom91194 [place] [address] Medical Director: David Doe MD Protein 7.4 g/dL Normal 6.0-8.5 [facility] Comment on above: Performed By: #### 1 89133, 7781530, 026756, 429499, 785058, 720104 ####[facility] Zhumsrrm33009 [place], [place] [address]) [phone] Director: David Doe MD GPT 16 unit/L Normal 13-56 [facility] Comment on above: Result Comment: [place]iposa puncture should occur prior to sulfasalazine and/or sulfapyridine administration due to the potential for falsely depressed results.Baseline assay values before administration of sulfasalazine and sulfapyridine therapy would not be affected. Performed By: #### 1 00526, 5597011, 031408, 290102, 135705, 116943 ####[facility] Thowkmgc54808 [place], [place] [address]) [phone] Director: David Doe MD Creatinine 0.7 mg/dL Normal 0.6-1.0 [facility] Comment on above: Performed By: #### 1 30737, 7065388, 127605, 800733, 465567, 436188 ####[facility] Vkzbufcu86379 [place], [place] [address]) [phone] Director: David Doe MD GOT 14 unit/L Low 15-37 [facility] Comment on above: Result Comment: [place] puncture should occur prior to sulfasalazine and/or sulfapyridine administration due to the potential for falsely depressed results.Baseline assay values before administration of sulfasalazine and sulfapyridine therapy would not be affected. Performed By: #### 1 61535, 7960224, 657868, 122001, 580719, 478463 ####[facility] Pmgiiemg16743 [place] [address] Medical Director: David Doe MD Urea nitrogen 13 mg/dL Normal 10-20 [facility] Comment on above: Performed By: #### 1 45205, 4270330, 352170, 673709, 653229, 390238 ####[facility] Qfxrsmdr87717 [place], [place] [address]) [phone] Director: David Doe MD Glucose mass conc 86 mg/dL Normal 72-100 [facility] Comment on above: Result Comment: [place] puncture should occur prior to sulfasalazine administration due to the potential for falsely depressed results. Venipuncture should occur prior to sulfapyridine administration due to the potential falsely elevated results.Baseline assay values before administration of sulfasalazine and sulfapyridine therapy would not be affected. Performed By: #### 1 55761, 6238738, 470782, 158849, 936992, 143026 ####[facility] [address]pmrdcne87[address] [place] [address] Medical Director: David Doe MD Albumin 3.4 g/dL Normal 3.4-5.0 [facility] Comment on above: Performed By: #### 1 62813, 3903769, 080825, 037154, 245937, 023300 ####[facility] Nwpqczhe61436 [place] [address] Medical Director: David Doe MD CO2 19.0 mmol/L Low 21.0-32.0 [facility] Comment on above: Performed By: #### 1 80930, 2763638, 941255, 814551, 639825, 012166 ####[facility] Opbkyqxt58218 [place] [address] Medical Director: David Doe MD Calcium 9.0 mg/dL Normal 8.5-10.5 [facility] Comment on above: Performed By: #### 1 03270, 9534440, 363931, 642637, 295790, 058894 ####[facility] [address]vlhxqhb24799 [place] [address] Medical Director: David Doe MD Potassium molar conc 3.7 mmol/L Normal 3.5-5.1 [facility] Comment on above: Performed By: #### 1 00818, 3382901, 887861, 503101, 281902, 749376 ####[facility] [address]qdyqa09[address] [place] [address] Medical Director: David Doe MD Sodium 139 mmol/L Normal 135-145 [facility] Comment on above: Performed By: #### 1 94519, 2936537, 146160, 120078, 830107, 452605 ####[facility] Z[address]udersk17450 [place] [address] Medical Director: David Doe MD Chloride 108 mmol/L Normal 100-109 [facility] Comment on above: Performed By: #### 1 07934, 5898776, 709562, 662654, 240441, 751883 ####[facility] Ytotfsyo30228 [place] [address] Medical Director: David Doe MD CT LOWER [...] Damir SMITH MD Out: 01/04/17 12:59:57 Normal [facility] ED Physician Reporton 2016 ED Physician Report Patient: JITENDRA NAVARRETE J Age: 21 years Sex: Female : 1995 [...] No acute fracture or joint dislocation.Signature LineTechnologist: HRD,KDDictated By: HERB AGUILAR MDSigned By: HERB AGUILAR [...] Plan Diagnosis Crush injury of right foot (NDA91-GS S97.81XA, Working, Medical) Plan Condition: Stable. Disposition: ED Discharge to Home was placed.(01/04/2017 13:39:31 EDT, Constant Order). Prescriptions: Launch prescriptions Pharmacy:Percocet 5/325 ([id number]) oral tablet (Prescribe): 1 tabs, ORAL, [id number], PRN: for pain, 24 tabs, 0 Refill(s)doxycycline hyclate 100 mg oral tablet (Prescribe): 100 mg = 1 tabs, ORAL, BID, for 10 days, 20 tabs, 0 Refill(s). Patient was given the following educational materials: Cryotherapy, Nfij-dg-Tcsz, Compartment Syndrome of the Foot, Compartment Syndrome of the Foot, Cryotherapy, Zukw-po-Vjpy. Follow up with: 837 NO FAMILY PHYSICIAN [...] by: Selene GALVAN MD 01/04/2017 14:19 Normal [facility] ED Progress Noteon 7 ED [...] medicatedsig other at bedsidepodiatry coming to see [id number] ASSUMED CARE OF PT, REPORT RECEIVED FROM [...] a little dizzy after trying crutches. Normal [facility] HCGon 01-04-2017 HCG, Qual <1.0 Normal [facility] Comment on above: Result Comment: 0 - 3 Negative3 - 50 Inconclusive>50 Positive Performed By: #### 1 30619, 1311980, 445029, 498903, 953640, 398492 ####[facility] Qshwblsu06754 [place], [place] [address]) [phone] Director: David Doe MD HEMOon 01-04-2017 DIFF? No Normal [facility] Comment on above: Performed By: #### 1 42272, 5576936, 937843, 142300, 603879, 030406 ####[facility] Mmtosbut51383 [place], [place] [address]) [phone] Director: David Doe MD Erythrocyte distribution width Auto Ratio (RBC) 13.3 % Normal 11.5-14.5 [facility] Comment on above: Performed By: #### 1 88870, 7098670, 930680, 741479, 471394, 525154 ####[facility] Iuwlrhch33835 [place] [address] Medical Director: David Doe MD Erythrocytes (RBC) 4.80 x10 Normal 4.20-5.40 [facility] Comment on above: Result Comment: Note : RBC morphology is normal unless otherwise stated. Evaluation performed only if differential is requested. Performed By: #### 1 77072, 1817708, 340934, 159209, 781437, 063622 ####[facility] Dprqorsj85423 [place] [address] Medical Director: David Doe MD Hematocrit (HCT) 39.0 % Normal 36.0-46.0 [facility] Comment on above: Performed By: #### 1 23876, 7780582, 898805, 662854, 047582, 259509 ####[facility] Hfkvjxdu30498 [place], [place] [address]) [phone] Director: David Doe MD Hemoglobin mass conc (Bld) 13.1 g/dL Normal 12.0-16.0 [facility] Comment on above: Performed By: #### 1 91619, 3615521, 841773, 929221, 278503, 580597 ####[facility] [address]fsczgal35994 [place] [address] Medical Director: David Doe MD MCH 27.3 pg Normal 27.0-34.0 [facility] Comment on above: Performed By: #### 1 51724, 5736241, 992817, 231508, 969849, 218361 ####[facility] Lbcvoxtm58947 [place] [address] Medical Director: David Doe MD MCHC mass conc (RBC) 33.6 g/dL Normal 32.0-37.0 [facility] Comment on above: Performed By: #### 1 62230, 7773832, 318274, 980172, 511366, 748402 ####[facility] Hgrxnmgt95597 [place] [address] Medical Director: David Doe MD MCV 81.3 fL Normal 80.0-100.0 [facility] Comment on above: Performed By: #### 1 04955, 6979078, 159559, 193601, 015028, 041870 ####[facility] [address]peewqsd99261 [place] [address] Medical Director: David Doe MD Nucleated RBC% 0 /100WC Normal [facility] Comment on above: Performed By: #### 1 99206, 4330559, 798758, 486379, 347271, 825097 ####[facility] Cexgfyyv50665 [place] [address] Medical Director: David Doe MD Platelet mean volume (PMV) 9.4 fL Normal 7.4-10.4 [facility] Comment on above: Performed By: #### 1 88335, 7951169, 008740, 330127, 423160, 819294 ####[facility] Syzgchxz33012 [place] [address] Medical Director: David Doe MD Platelets 238 x1000 Normal 150-450 [facility] Comment on above: Performed By: #### 1 46775, 2454351, 618237, 497727, 635937, 761595 ####[facility] Vldsrjjs38725 [place] [address] Medical Director: David Doe MD WBC (Leukocytes) 9.6 10*3/uL Normal [facility] Comment on above: Performed By: #### 1 38145, 5032855, 525610, 270470, 462174, 320214 ####[facility] Thsyrweb64386 [place] [address] Medical Director: David Doe MD WBC (Leukocytes) 9.6 x10 Normal 4.5-11.0 [facility] Comment on above: Performed By: #### 1 56368, 0071430, 560889, 025573, 897281, 135320 ####[facility] [address]qjirmms57395 [place] [address] Medical Director: David Doe MD PT INRon 01-04-2017 Protime Median 11.1 Second(s) Normal [facility] Comment on above: Result Comment: VERI FIED by Discern Expert. Performed By: #### 1 47728, 9728995, 031316, 155477, 635573, 766381 ####[facility] [address]zulzx42[address] [place] [address] Medical Director: David Doe MD INR Coag RelTime (PPP) 1.0 {INR} Normal [facility] Comment on above: Result Comment: Norm al reference range for INR on patients not on anticoagulant therapy: 0.9-1.1. General therapeutic range for patients on anticoagulant therapy: 2.0-3.5. Performed By: #### 1 12909, 5741194, 539770, 096028, 203166, 998360 ####[facility] [address]im[address]weqd13870 [place] [address] Medical Director: David Doe MD Protime Patient 11.3 Second(s) Normal 9.8-12.7 [facility] Comment on above: Performed By: #### 1 55138, 7330906, 415516, 910450, 145024, 003916 ####[facility] [facility] [id number] [place] [address] Medical Director: David Doe MD XR FOOT [...] acute fracture or joint dislocation.Technologist: OLGA,TANADictated By: Leann AGUILAR MDgned By: Jose Alberto AGUILAR MD Out: 01/04/17 11:49:07 Normal [facility] Vital Signs Date Time Vital Sign Value Performing Clinician Facility 02-13-2025 09:27-0400 Body mass index (BMI) [Ratio] 43.54 kg/m2 [employer] (V3[employer]) DO Work Phone: [facility] 02-13-2025 09:27-0400 Body weight 126.1 kg [employer] Work Phone: [facility] 02-13-2025 09:27-0400 Diastolic blood pressure 80 mm[Hg] [employer] Work Phone: [facility] 02-13-2025 09:27-0400 Systolic blood pressure 128 mm[Hg] Aditya Billy DO Work Phone: [facility] 02-06-2025 09:29-0400 Body mass index (BMI) [Ratio] 43.38 kg/m2 Aditya Billy DO Work Phone: [facility] 02-06-2025 09:29-0400 Body weight 125.65 kg Aditya Billy DO Work Phone: [facility] 02-06-2025 09:29-0400 Diastolic blood pressure 78 mm[Hg] Aditya Billy DO Work Phone: [facility] 02-06-2025 09:29-0400 Systolic blood pressure 126 mm[Hg] Aditya Billy DO Work Phone: [facility] 01-23-2025 09:44-0400 Body mass index (BMI) [Ratio] 43.35 kg/m2 Latasha Dayron PA Work Phone: [facility] 01-23-2025 09:44-0400 Body weight 125.56 kg Latasha [place] PA Work Phone: [facility] 01-23-2025 09:44-0400 Diastolic blood pressure 74 mm[Hg] Latasha [place] PA Work Phone: [facility] 01-23-2025 09:44-0400 Systolic blood pressure 122 mm[Hg] Latasha [place] PA Work Phone: [facility] 12-27-2024 10:35-0400 Body mass index (BMI) [Ratio] 42.88 kg/m2 Latasha Dayron PA Work Phone: [facility] 12-27-2024 10:35-0400 Body weight 124.19 kg Latasha [place] PA Work Phone: [facility] 12-27-2024 10:35-0400 Diastolic blood pressure 74 mm[Hg] Latasha Dayron PA Work Phone: [facility] 12-27-2024 10:35-0400 Systolic blood pressure 122 mm[Hg] Latasha Dayron PA Work Phone: [facility] 12-13-2024 13:51-0400 Body mass index (BMI) [Ratio] 43.07 kg/m2 Aditya Billy DO Work Phone: [facility] 12-13-2024 13:51-0400 Body weight 124.74 kg Aditya Billy DO Work Phone: [facility] 12-13-2024 13:51-0400 Diastolic blood pressure 70 mm[Hg] Aditya Billy DO Work Phone: [facility] 12-13-2024 13:51-0400 Systolic blood pressure 128 mm[Hg] Aditya Billy DO Work Phone: [facility] 11-22-2024 14:29-0400 Body mass index (BMI) [Ratio] 42.57 kg/m2 Aditya Billy DO Work Phone: [facility] 11-22-2024 14:29-0400 Body weight 123.29 kg Aditya Billy DO Work Phone: [facility] 11-22-2024 14:29-0400 Diastolic blood pressure 78 mm[Hg] Aditya Billy DO Work Phone: [facility] 11-22-2024 14:29-0400 Systolic blood pressure 128 mm[Hg] Aditya Billy DO Work Phone: [facility] 10-25-2024 09:07-0400 Body mass index (BMI) [Ratio] 41.86 kg/m2 Latasha KULKARNI Work Phone: [facility] 10-25-2024 09:07-0400 Body weight 121.22 kg Latasha KULKARNI Work Phone: [facility] 10-25-2024 09:07-0400 Diastolic blood pressure 82 mm[Hg] Latasha KULKARNI Work Phone: [facility] 10-25-2024 09:07-0400 Systolic blood pressure 108 mm[Hg] Latasha KULKARNI Work Phone: [facility] 09-26-2024 10:24-0400 Body mass index (BMI) [Ratio] 41.62 kg/m2 Aditya Billy DO Work Phone: [facility] 09-26-2024 10:24-0400 Body weight 120.54 kg Aditya Billy DO Work Phone: [facility] 09-26-2024 10:24-0400 Diastolic blood pressure 76 mm[Hg] Aditya Billy DO Work Phone: [facility] 09-26-2024 10:24-0400 Systolic blood pressure 124 mm[Hg] Aditya Billy DO Work Phone: [facility] 08-29-2024 09:23-0400 Body mass index (BMI) [Ratio] 41.47 kg/m2 Aditya Billy DO Work Phone: [facility] 08-29-2024 09:23-0400 Body weight 120.11 kg Aditya Billy DO Work Phone: [facility] 08-29-2024 09:23-0400 Diastolic blood pressure 66 mm[Hg] Aditya Billy DO Work Phone: [facility] 08-29-2024 09:23-0400 Systolic blood pressure 122 mm[Hg] Aditya Billy DO Work Phone: [facility] 06-14-2024 09:05-0500 Body mass index (BMI) [Ratio] 41.16 kg/m2 Latasha KULKARNI Work Phone: [facility] 06-14-2024 09:05-0500 Body weight 119.2 kg Ltaasha KULKARNI Work Phone: [facility] 06-14-2024 09:05-0500 Diastolic blood pressure 74 mm[Hg] Latasha KULKARNI Work Phone: [facility] 06-14-2024 09:05-0500 Systolic blood pressure 114 mm[Hg] Latasha KULKARNI Work Phone: [facility] 05-17-2024 08:45-0500 Body mass index (BMI) [Ratio] 41.04 kg/m2 Latasha KULKARNI Work Phone: [facility] 05-17-2024 08:45-0500 Body weight 118.84 kg Latasha Dayron PA Work Phone: [facility] 05-17-2024 08:45-0500 Diastolic blood pressure 70 mm[Hg] Latasha [place] PA Work Phone: [facility] 05-17-2024 08:45-0500 Systolic blood pressure 118 mm[Hg] Latasha Dayron PA Work Phone: [facility] 04-18-2024 09:17-0500 Body mass index (BMI) [Ratio] 42.26 kg/m2 Latasha Dayron PA Work Phone: [facility] 04-18-2024 09:17-0500 Body weight 122.38 kg Latasha [place] PA Work Phone: [facility] 04-18-2024 09:17-0500 Diastolic blood pressure 76 mm[Hg] Latasha [place] PA Work Phone: [facility] 04-18-2024 09:17-0500 Systolic blood pressure 114 mm[Hg] Latasha [place] PA Work Phone: [facility] 02-21-2024 14:13-0400 Body mass index (BMI) [Ratio] 39.47 kg/m2 Latasha Dayron PA Work Phone: [facility] 02-21-2024 14:13-0400 Body weight 114.31 kg Latasha [place] PA Work Phone: [facility] 02-21-2024 14:13-0400 Diastolic blood pressure 74 mm[Hg] Latasha [place] PA Work Phone: [facility] 02-21-2024 14:13-0400 Systolic blood pressure 118 mm[Hg] Latasha Dayron PA Work Phone: [facility] 07-15-2023 11:50-0500 Body mass index (BMI) [Ratio] 36.65 kg/m2 Aditya Cervantes DO Work Phone: [facility] 07-15-2023 11:50-0500 Body weight 106.14 kg Aditya Crevantes DO Work Phone: [facility] 12-04-2021 10:03-0400 Body height 173.35 cm [employer] 12-04-2021 10:03-0400 Body mass index (BMI) [Ratio] 35.22 kg/m2 [employer] 12-04-2021 10:03-0400 Body surface area Derived from formula 2.26 m2 [employer] 12-04-2021 10:03-0400 Body weight 105.83 kg [employer] 12-04-2021 10:03-0400 Diastolic blood pressure 68 mm[Hg] [employer] [facility] 12-04-2021 10:03-0400 Heart rate 68 /min [employer] 12-04-2021 10:03-0400 Systolic blood pressure 116 mm[Hg] [employer] 10-15-2020 01:15-0400 Diastolic blood pressure 71 mm[Hg] Donny Andes DO Work Phone: [employer] Work Phone: 10-15-2020 01:15-0400 SaO2% (BldA) [Mass fraction] 94 % Donny Andes DO Work Phone: [employer] Work Phone: 10-15-2020 01:15-0400 Systolic blood pressure 117 mm[Hg] Donny Andes DO Work Phone: [employer] Work Phone: 10-14-2020 23:18-0400 Body temperature 97.59 [degF] Donny Andes DO Work Phone: [employer] Work Phone: 10-14-2020 23:18-0400 Heart rate 98 /min Donny Andes DO Work Phone: [employer] Work Phone: 10-14-2020 23:18-0400 Respiratory rate 18 /min Donny Andes DO Work Phone: [employer] Work Phone: 09-23-2020 08:31-0400 Body height 172.72 cm Miguel Holley CNP Work Phone: [facility] [employer] [facility] Work Phone: 09-23-2020 08:31-0400 Body mass index (BMI) [Ratio] 40.9 kg/m2 Miguel Holley CNP Work Phone: [facility] Work Phone: 09-23-2020 08:31-0400 Body surface area Derived from formula 2.32 m2 Miguel Holley CNP Work Phone: [facility] Work Phone: 09-23-2020 08:31-0400 Body temperature 964 [degF] Miguel Holley CNP Work Phone: [facility] Work Phone: 09-23-2020 08:31-0400 Body weight 122.02 kg Miguel Holley CNP Work Phone: [facility] Work Phone: 09-23-2020 08:31-0400 Diastolic blood pressure 80 mm[Hg] Miguel Holley CNP Work Phone: [facility] Work Phone: 09-23-2020 08:31-0400 Heart rate 80 /min Miguel Holley CNP Work Phone: [facility] Work Phone: 09-23-2020 08:31-0400 Respiratory rate 18 /min Miguel Holley CNP Work Phone: [facility] Work Phone: 09-23-2020 08:31-0400 SaO2% (BldA) [Mass fraction] 98 % Miguel Holley CNP Work Phone: [facility] Work Phone: 09-23-2020 08:31-0400 Systolic blood pressure 126 mm[Hg] Miguel Holley CNP Work Phone: [facility] Work Phone: 04-08-2020 16:25-0500 Respiratory Rate 16 /min [facility] 04-08-2020 16:20-0500 Pulse (Heart Rate) 86 /min [facility] 04-08-2020 16:20-0500 Pulse Oximetry 98 % [facility] , [place] 04-08-2020 16:00-0500 BP Diastolic 66 mm[Hg] [facility] [place] 04-08-2020 16:00-0500 BP Systolic 121 mm[Hg] [facility] [place] 04-08-2020 13:23-0500 Body Temperature 98.4 [degF] [facility] 03-19-2020 19:09-0400 BMI (Body Mass Index) 37.3 kg/m2 [facility] Work Phone: 03-19-2020 19:09-0400 Body weight 111.13 kg [facility] Work Phone: 03-19-2020 19:09-0400 BSA (Body Surface Area) 2.23 m2 [facility] Work Phone: 03-19-2020 19:09-0400 Height 172.72 cm [facility] Work Phone: 03-05-2020 08:30-0400 BMI (Body Mass Index) 37.3 kg/m2 [facility] Work Phone: 03-05-2020 08:30-0400 Body Temperature 95.4 [...] 08:30-0400 SaO2% (BldA) [Mass fraction] 99 % [facility] Work Phone: [facility] Work Phone: 12-05-2019 08:37-0400 BMI (Body Mass Index) 35.4 kg/m2 [facility] Work Phone: 12-05-2019 08:37-0400 Body Temperature 98.8 [...] (BldA) [Mass fraction] 98 % Miguel Dell PRE BILLING CLINICIAN Work Phone: [facility] Work Phone: 11-06-2019 09:02-0400 BMI (Body Mass Index) 36.2 kg/m2 [facility] Work Phone: 11-06-2019 09:02-0400 Body Temperature 95.8 [...] (BldA) [Mass fraction] 98 % Miguel Holley PRE BILLING CLINICIAN Work Phone: [facility] Work Phone: 10-12-2019 09:53-0400 BMI (Body Mass Index) 38.2 kg/m2 [facility] Work Phone: 10-12-2019 09:53-0400 Body Temperature 98.7 [...] 09:53-0400 SaO2% (BldA) [Mass fraction] 98 % [facility] Work Phone: [facility] Work Phone: 09-14-2019 08:35-0400 BMI (Body Mass Index) 37.7 kg/m2 [facility] Work Phone: 09-14-2019 08:35-0400 Body Temperature 96.6 [...] 10:26-0400 BMI (Body Mass Index) 37.3 kg/m2 [facility] Work Phone: 09-05-2019 10:26-0400 Body weight 111.13 kg [facility] Work Phone: 09-05-2019 10:26-0400 BSA (Body Surface Area) 2.23 m2 [facility] Work Phone: 09-05-2019 10:26-0400 Height 172.72 cm [facility] Work Phone: 08-17-2019 08:29-0400 BMI (Body Mass Index) 37.3 kg/m2 [facility] Work Phone: 08-17-2019 08:29-0400 Body Temperature 97.9 [...] 08:36-0500 BMI (Body Mass Index) 39 kg/m2 [facility] Work Phone: 07-20-2019 08:36-0500 Body Temperature 98.4 [...] 08:43-0500 BMI (Body Mass Index) 39.7 kg/m2 [facility] Work Phone: 07-06-2019 08:43-0500 Body Temperature 97.3 [...] Date Encounter Type Care Provider Facility Start: 02-13-2025 End: 02-13-2025 Bamboo flowsheet Aditya Iblly DO Work Phone: [facility] Start: 02-13-2025 End: 02-13-2025 Bamboo flowsheet Aditya Billy DO Work Phone: [facility] Start: 02-13-2025 End: 02-13-2025 Clinisync Result Encounter Aditya Billy DO Work Phone: [facility] External Department Unsolicited Start: 02-13-2025 End: 02-13-2025 ambulatory ADITYA BILLY Not Available Start: 02-13-2025 End: 02-13-2025 Office outpatient visit 15 minutes Aditya Billy DO Work Phone: [facility] Comment on above: 37 weeks gestation o f ([facility]); Third trimester ([facility]); Gestational diabetes mellitus (GDM), antepartum, gestational diabetes method of control unspecified ([facility]); Hyperglycemia during ([facility]) Start: 02-09-2025 End: 02-09-2025 Clinisync Result Encounter Aditya Billy DO Work Phone: [facility] External Department Unsolicited Start: 02-09-2025 End: 02-09-2025 Clinisync Result Encounter Aditya Billy DO Work Phone: [facility] External [facility] Unsolicited Start: 02-06-2025 End: 02-06-2025 Bamboo flowsheet Aditya Billy DO Work Phone: [facility] Start: 02-06-2025 End: 02-06-2025 Bamboo flowsheet Aditya Billy DO Work Phone: [facility] Start: 02-06-2025 End: 02-06-2025 Office outpatient visit 15 minutes Aditya Billy DO Work Phone: [facility] Comment on above: Third trimester preg robson ([facility]); 36 weeks gestation of ([facility]) Start: 02-06-2025 End: 02-06-2025 ambulatory ADITYA [...] flowsheet Latasha Padgett PA Work Phone: [facility] Start: 01-23-2025 End: 01-23-2025 Bamboo flowsheet Latasha KULKARNI Work Phone: [facility] Start: 01-23-2025 End: 01-23-2025 Office outpatient visit 15 minutes Latasha KULKARNI Work Phone: [facility] Comment on above: Third trimester preg robson ([facility]); 34 weeks gestation of ([facility]) Start: 01-23-2025 End: 01-23-2025 ambulatory LATASHA PADGETT Not Available Start: 01-19-2025 End: 01-19-2025 Clinisync Result Encounter Aditya Billy DO Work Phone: [facility] Unsolicited Start: 01-19-2025 End: 01-19-2025 Clinisync Result Encounter Aditya Billy DO Work Phone: [facility] Unsolicited Start: 01-09-2025 End: 01-09-2025 Bamboo flowsheet Aditya Billy DO Work Phone: [facility] Start: 01-09-2025 End: 01-09-2025 Bamboo flowsheet Aditya Billy DO Work Phone: [facility] Start: 01-09-2025 End: 01-09-2025 Office outpatient visit 15 minutes Aditya Billy DO Work Phone: [facility] Comment on above: Third trimester preg robson ([facility]); 32 weeks gestation of ([facility]); Gestational diabetes mellitus (GDM), antepartum, gestational diabetes method of control unspecified ([facility]); Hyperglycemia during ([facility]) Start: 01-09-2025 End: 01-09-2025 ambulatory ADITYA BILLY Not Available Start: 12-27-2024 End: 12-27-2024 Bamboo flowsheet Latasha KULKARNI Work Phone: [facility] Start: 12-27-2024 End: 12-27-2024 Bamboo flowsheet Latasha KULKARNI Work Phone: [facility] Start: 12-27-2024 End: 12-27-2024 ambulatory ADITYA BILLY Not Available Start: 12-27-2024 End: 12-27-2024 Office outpatient visit 15 minutes Latasha KULKARNI Work Phone: [facility] Comment on above: Third trimester preg robson ([facility]) Start: 12-13-2024 End: 12-13-2024 ambulatory ADITYA BILLY Not Available Start: 12-13-2024 End: 12-13-2024 Office outpatient visit 15 minutes Aditya Billy DO Work Phone: [facility] Comment on above: Elevated glucose rikki erance test; History of gestational diabetes; Third trimester ([facility]); 28 weeks gestation of ([facility]); Gestational diabetes mellitus (GDM), antepartum, gestational diabetes method of control unspecified ([facility]) Start: 12-12-2024 End: 12-12-2024 Clinisync Result [...] 10-17-2024 End: 10-17-2024 ambulatory ADITYA ANGELICA BILLY [facility] Start: 10-17-2024 End: 10-17-2024 Subsequent hospital visit by physician Miguel Stewart CNP Work Phone: [facility] Start: 09-26-2024 End: 09-26-2024 Bamboo [...] encounter procedure Aditya Billy DO Work Phone: [facility] Start: 09-26-2024 End: 09-26-2024 Periodic preventive med est patient 18-39 yrs Aditya Billy DO Work Phone: [facility] Comment on above: Screening, , for anatomic survey; Well woman exam with routine gynecological exam; STD exposure; Vaginal discharge; Second trimester ; 17 weeks gestation of Start: 08-29-2024 End: 08-29-2024 Bamboo flowsheet Aditya Billy DO Work Phone: [facility] Start: 08-29-2024 End: 08-29-2024 Bamboo flowsheet Aditya Billy DO Work Phone: [facility] Start: 08-29-2024 End: 08-29-2024 Office outpatient visit 15 minutes Aditya Billy DO Work Phone: [facility] Comment on above: First trimester [...] Start: 01-01-2023 End: 01-01-2023 Patient encounter procedure Miguelcristal Holley [employer] - PRE BILLING CLINICIAN Work Phone: [facility] Start: 01-01-2023 End: 01-01-2023 Subsequent hospital visit by physician Miguel Holley APRN - PRE BILLING CLINICIAN Work Phone: [facility] Comment on above: Women's annual routi ne gynecological examination Start: 12-16-2021 End: 12-16-2021 Subsequent hospital visit by physician Miguel Holley APRN - PRE BILLING CLINICIAN Work Phone: [facility] Start: 12-04-2021 Split vc Shona Jenkins rne Other [facility] Start: 10-02-2021 End: 10-02-2021 Patient encounter procedure Miguel Dell [employer] PATTERNMAKER - PRE BILLING CLINICIAN Work Phone: [facility] Start: 10-02-2021 End: 10-02-2021 Subsequent hospital visit by physician Miguel Holley [employer] PATTERN[employer] - PRE BILLING CLINICIAN Work Phone: [facility] Comment on above: Women's annual routi ne gynecological examination Start: 10-14-2020 End: 10-15-2020 Emergency department patient visit Donnypatrick Hatfield DO Work Phone: [facility] Comment on above: Nausea vomiting and diarrhea (Primary Dx); Generalized abdominal pain Start: 09-23-2020 End: 09-24-2020 ambulatory MIGUEL HOLLEY [facility] Start: 09-23-2020 End: 09-23-2020 Subsequent hospital visit by physician Miguel Holley APRN [employer] Work Phone: [facility] Start: 09-23-2020 End: 09-23-2020 General Jammie RODAS Work Phone: [facility] Work Phone: Start: 09-23-2020 End: 09-23-2020 Adult health examination Miguel Holley CNP Work Phone: [facility] Work Phone: Start: 09-23-2020 End: 09-23-2020 [facility] visit, estab pt Miguel Holley PRE BILLING CLINICIAN Work Phone: [facility] Work Phone: Start: 04-08-2020 End: 04-08-2020 Emergency department patient visit [facility] Comment on above: COVID-19 (Primary Dx ); Fatty liver Start: 03-19-2020 End: 03-19-2020 Telemedicine consultation with patient Miguel Holley Work Phone: [facility] Work Phone: Start: 03-05-2020 End: 03-05-2020 Established patient Miguel Holley Work Phone: [facility] Work Phone: Start: 12-05-2019 End: 12-05-2019 Established patient Poly Franco Work Phone: [facility] Work Phone: Start: 11-06-2019 End: 11-06-2019 Established patient Poly Franco Work Phone: [facility] Work Phone: Start: 10-12-2019 End: 10-12-2019 Patient encounter procedure Paty Goldsmith Work Phone: [facility] Work Phone: Start: 10-12-2019 End: 10-12-2019 Established patient Poly Franco Work Phone: [facility] Work Phone: Start: 09-14-2019 End: 09-14-2019 Established patient Poly Franco Work Phone: [facility] Work Phone: Start: 09-11-2019 End: 09-11-2019 Telemedicine consultation with patient Poly Franco Work Phone: [facility] Work Phone: Start: 09-05-2019 End: 09-05-2019 Telemedicine consultation with patient Poly Franco Work Phone: [facility] Work Phone: Start: 08-17-2019 End: 09-11-2019 Telemedicine consultation with patient Poly Franco Work Phone: [facility] Work Phone: Start: 08-17-2019 End: 08-17-2019 Established patient Miguel Holley Work Phone: [facility] Work Phone: Start: 07-20-2019 End: 07-20-2019 Established patient Miguel Holley Work Phone: [facility] Work Phone: Start: 07-06-2019 End: 07-06-2019 Subsequent hospital visit by physician Jackson [facility] Start: 07-06-2019 End: 07-06-2019 Established patient Anh Virk Work Phone: [facility] Work Phone: Start: 07-06-2019 End: 07-06-2019 New patient Allyson Floyd Work Phone: [facility] Work Phone: Start: 02-02-2019 End: 02-04-2019 Subsequent hospital visit by physician [facility] Ultrasound Room [facility] Ultrasound Comment on above: Encounter for intrau terine device placement Start: 08-21-2018 End: 08-23-2018 Patient encounter procedure [facility] Start: 01-04-2017 End: 01-04-2017 Emergency department patient visit [address] [facility] Facility:[id number] Procedures Date Procedure Procedure Detail Performing Clinician Start: 02-13-2025 US OB BPP W NON-STRESS Aditya Billy DO Work Phone: Start: 02-13-2025 Urnls dip stick/tabl et rgnt non-auto w/o micrscp Aditya Billy DO Work Phone: Start: 02-09-2025 US OB BPP W NON-STRESS Aditya Billy DO Work Phone: Start: 02-02-2025 US OB [...] by Cyto stain Miguel Holley APRN - PRE BILLING CLINICIAN Work Phone: Start: 12-16-2021 Assay of blood/uric acid Dedrick Wood PA-C Work Phone: Start: 12-16-2021 C-reactive protein Robel Wood PA-C Work Phone: Start: 12-04-2021 Nerve conduction heaven dies 9-10 studies Shona Lucio Start: 10-02-2021 Microscopic observat ion [Identifier] in Cervix by Cyto stain Miguel Holley APRN - PRE BILLING CLINICIAN Work Phone: Start: 10-15-2020 Urinalysis microscop ic [...] pressure < 80 mm hg Miguel Holley [facility] Work Phone: Start: 09-23-2020 Most recent systolic blood pressure <130 mm hg Miguel Holley [facility] Work Phone: Start: 09-23-2020 Pt-focused hlth risk assmt score doc stnd instrm Miguel Holley [facility] Work Phone: Start: 09-23-2020 Antibody hiv-1&hiv-2 single result Miguel Holley [facility] Work Phone: Start: 09-23-2020 Comprehensive metabo lic panel Miguel Holley [employer]PAREL PATTERNMAKER - [facility] Work Phone: Start: 04-08-2020 Ct thorax w/contrast material Ninoska Marianne Work Phone: Start: 04-08-2020 COVID-19 [facility] Work Phone: Start: 04-08-2020 Urine test visual color cmprsn meths Ninoska Marianne Work Phone: Start: 04-08-2020 Assay of troponin quantitative [employer] Work Phone: Start: 04-08-2020 Blood count complete automated Ninoska Marianne Work Phone: Start: 04-08-2020 Comprehensive metabo lic panel [facility] Work Phone: Start: 04-08-2020 Natriuretic peptide Selena [...] Start: 07-06-2019 Assay of free thyroxine Allyson Kamryn Floyd Work Phone: Start: 07-06-2019 Assay of thyroid stimulating hormone tsh Allyson A [place] Work Phone: Start: 07-06-2019 Assay of triiodothyr onine t3 total tt3 Allyson A [place] Work Phone: Start: 07-06-2019 Blood count complete auto&auto difrntl wbc Allyson Floyd Work Phone: Start: 07-06-2019 Comprehensive metabo lic panel Allyson Floyd Work Phone: Start: 07-06-2019 Lipid panel Allyson Floyd Work Phone: Start: 02-02-2019 Us transvaginal Dana Akins Work Phone: Start: 02-07-2018 Microscopic observat ion [Identifier] in Cervix by Cyto stain Miguelcristal Holley APPAREL PATTERNMAKER - PRE BILLING CLINICIAN Work Phone: H/O: section S/P jose carlos [...] malign ant neoplasm of cervix Pap smear [facility] Start: 02-28-2025 End: 02-28-2025 Patient encounter procedure 02/28/2025 9:50 AM EDT Office Visit DENISE CESAR [address] [place] [address] Nedra Raymond, OPERATING ROOM SURGICAL TECHNOLOGIST [address] [place] [address] DENISE CESAR Start: 02-13-2025 End: 02-13-2025 Patient encounter procedure 02/13/2025 9:10 AM EDT Routine DENISE CESAR [address] [place] [address] Aditya Cervantes, DO [address] [place] [address] [facility] Start: 02-07-2025 End: 02-07-2025 Patient encounter procedure 02/07/2025 10:50 AM EDT Routine [facility] OBJANEENN [address] [place] [phone] Aditya Cervantes, DO [address] [place] [address] [facility] Start: 02-06-2025 End: 02-06-2026 CULTURE, GROUP B STREP WITH SUSCEPTIBLITY CULTURE, GROUP B STREP WITH SUSCEPTIBLITY Lab Routine Third trimester ([facility]) Expected: 02/06/2025, Expires: 02/06/2026 [facility] Work Phone: Comment on above: Expected: 02/06/2025 , Expires: 02/06/2026 Start: 02-06-2025 End: 02-06-2025 Patient encounter procedure [facility] OBROSALIE Comment on above: Arrived Start: 01-29-2025 Influenza vaccination Influenza Vacc ine (#1) [facility] Start: 01-23-2025 End: 01-23-2025 Patient encounter procedure [facility] OBROSALIE Comment on above: Arrived Start: 01-10-2025 End: 01-10-2025 Patient encounter procedure 01/10/2025 1:00 PM EDT Routine [facility]BGYN [address] [place] [address] Aditya Cervantes, DO [address] [place] [address] [facility] Start: 01-09-2025 End: 07-12-2025 US biophysical profile w non stress test US biophysical profile w non stress test Imaging Routine Hyperglycemia during ([facility]) Expected: 01/09/2025 (Approximate), Expires: 07/12/2025 [facility] Work Phone: Comment on above: Expected: 01/09/2025 (Approximate), Expires: 07/12/2025 Start: 01-09-2025 End: 01-09-2025 Patient encounter procedure [facility] Comment on above: Arrived Start: 12-29-2024 Influenza vaccination Flu vacc ine (Season Ended) [facility] Start: 12-27-2024 End: 12-27-2024 Professional / ancillary services management [facility] Start: 12-27-2024 End: 12-27-2024 Patient encounter procedure 12/27/2024 10:20 AM EDT Routine [facility] [address] [place] [address] Latasha Padgett PA [address] [place], [place] [id number] [facility] Start: 12-13-2024 End: 12-13-2024 Patient encounter procedure 12/13/2024 1:40 PM EDT Routine [facility] [address] [place] [address] Aditya Cervantes DO [address] [place], [place] [id number] [facility] Start: 12-06-2024 End: 12-06-2025 Measurement of glucose 3 hours after glucose challenge for glucose tolerance test Glucose tolerance, 3 hours Lab Routine Elevated glucose tolerance test Expected: 12/06/2024 (Approximate), Expires: 12/06/2025 [facility] Work Phone: Comment on above: Expected: 12/06/2024 (Approximate), Expires: 12/06/2025 Start: 11-22-2024 End: 11-22-2025 12 lead ECG ECG 12 lead unit performed ECG Routine Dizziness Expected: 11/22/2024 (Approximate), Expires: 11/22/2025 [facility] Work Phone: Comment on above: Expected: 11/22/2024 (Approximate), Expires: 11/22/2025 Start: 11-22-2024 End: 11-22-2025 CBC panel - Blood by Automated count CBC Lab Routine Diabetes mellitus screening Expected: 11/22/2024 (Approximate), Expires: 11/22/2025 [facility] Work Phone: Comment on above: Expected: 11/22/2024 (Approximate), Expires: 11/22/2025 Start: 11-22-2024 End: 11-22-2025 Measurement of glucose 1 hour after glucose challenge for glucose tolerance test Glucose tolerance, 1 hour Lab Routine Diabetes mellitus screening Expected: 11/22/2024 (Approximate), Expires: 11/22/2025 [facility] Comment on above: Expected: 11/22/2024 (Approximate), Expires: 11/22/2025 Start: 11-22-2024 End: 11-22-2024 Patient encounter procedure 11/22/2024 1:50 PM EDT Routine [facility] [address] [place] [address] Aditya Cervantes DO [address] [place], [place] [id number] [facility] Start: 10-25-2024 End: 10-25-2024 Patient encounter procedure 10/25/2024 9:30 AM EDT Routine [facility] [address] [place] [address] Latasha Padgett PA [address] [place] [address] [facility] Start: 10-25-2024 End: 10-25-2024 Professional / ancillary services management 10/25/2024 8:00 AM EDT Ancillary Procedure [facility] [address] [place] [address] [facility] Start: 10-02-2024 Screening for malign ant neoplasm of cervix Pap smear [facility] Start: 09-26-2024 End: 11-26-2024 Alpha fetoprotein, [...] Routine [facility] [address] [place] [address] Aditya Cervantes, [place] [address] [facility] Start: 08-29-2024 End: 08-29-2024 Patient encounter procedure 08/29/2024 9:20 AM EDT Routine [facility] [address] [place] [address] Aditya Cervantes, [place] [address] Arrived [facility] Comment on above: Arrived Start: 08-04-2024 End: 08-04-2024 ambulatory 08/04/2024 9:00 AM EST Initial [facility] [address] [place] [address] [facility] Start: 08-04-2024 End: 08-04-2024 Professional / ancillary services management 08/04/2024 8:30 AM EST Ancillary Procedure [facility] [address] [place] [address] [facility] Start: 07-12-2024 End: 07-12-2024 Patient encounter procedure 07/12/2024 8:30 AM EST Office Visit [facility] [address] [place] [phone] Latasha Padgett PA [address] [place] [address] [facility] Start: 05-17-2024 End: 05-17-2024 Patient encounter procedure [facility] Comment on above: Arrived Start: 05-10-2024 End: 05-10-2024 Patient encounter procedure 05/10/2024 8:40 AM EST Office Visit [facility] [address] [place] [address] Latasha Padgett, PA [address] [place], [place] [id number] [facility] Start: 01-30-2024 COVID-19 Vaccine ( season) COVID-19 Vaccine ( season) [facility] Start: 01-30-2024 Influenza vaccination Influenza Vacc ine (#1) [facility] Start: 08-19-2023 End: 08-19-2023 Patient encounter procedure 08/19/2023 11:00 AM EDT Routine [facility] [address] [place] [address] Latasha Padgett, PA [address] [place] [address] [facility] Start: 08-19-2023 End: 08-19-2023 Professional / ancillary services management 08/19/2023 10:00 AM EDT Ancillary Procedure [facility] [address] [place] [address] [facility] Start: 01-20-2023 End: 01-20-2023 Admission to same day surgery center 01/20/2023 Surgery IP Unit Mychal Nichols MD [address] [place] [address] HYSTEROSCOPY - IUD REMOVAL [facility] Comment on above: HYSTEROSCOPY - IUD R EMOVAL Start: 01-20-2023 End: 01-20-2023 Hysteroscopy removal impacted foreign body HYSTEROSCOPY Intrauterine contraceptive device threads lost, initial encounter 01/20/2023 11:10 AM EDT [facility] Start: 01-20-2023 Subsequent hospital visit by physician 01/20/2023 Hospital Encounter IP Unit Mychal Nichols MD [address] [place] [address] [facility] Start: 12-29-2022 Influenza vaccination Flu vaccine (# 1) [facility] Start: 04-27-2022 End: 04-27-2022 Patient encounter procedure [facility] Start: 01-29-2022 Influenza vaccination [facility] Start: 02-07-2021 Cervical cancer screen Cervical canc er screen [facility] [place] Start: 02-07-2021 Screening for malign ant neoplasm of cervix [facility] Start: 01-29-2021 Influenza vaccination Flu vacc ine (Season Ended) [facility] Work Phone: Start: 09-30-2020 CBC W Auto Different ial panel - Blood [facility] Start: 09-30-2020 Lipid 1996 panel - Serum or Plasma LIPID PROFILE [facility] Start: 09-23-2020 Psychiatry Health Par [facility] Work Phone: Comment on above: Note: Please make a referral to: Start: 03-26-2020 SARS-CoV-2, KAILA [facility] Work Phone: Start: 03-19-2020 COVID Drive up Testing [facility] Work Phone: Start: 02-06-2020 Medical Establ ished Patient [facility] Work Phone: Start: 01-30-2020 Influenza vaccination Flu vaccine (# 1) [place], [place] Start: 11-09-2019 Medical Establ ished Patient [facility] Work Phone: Start: 10-11-2019 Medical Establ ished Patient [facility] Work Phone: Start: 09-14-2019 Medical Establ ished Patient [facility] Work Phone: Start: 08-17-2019 Medical Establ ished Patient [facility] Work Phone: Start: 07-20-2019 Medical Establ ished Patient [facility] Work Phone: Start: 07-13-2019 Lipid 1995 panel [facility] Work Phone: Start: 02-14-2019 End: 02-14-2019 Office Visit 02/14/2019 Office Visit Obstetrics and Gynecology Pilar Marie, IOANA - ALEX [address] [place] [address] [phone] [facility] 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 Start: 02-07-2019 Chlamydia screen Chlamydia screen [facility] [place], [place] Start: 02-07-2019 Screening for Chlamy valentino trachomatis Chlamydia screen [facility] Start: 01-29-2019 Influenza vaccination Flu vaccine (# 1) [place], [place] Start: 10-29-2017 DTaP/Tdap/Td vaccine (2 - Td or Tdap) DTaP/Tdap/Td vaccine (2 - Td or Tdap) [facility] Start: 10-29-2017 DTaP/Tdap/Td vaccine (2 - Td) DTaP/Tdap/Td vaccine (2 - Td) [place] Start: 2015 Hepatitis B vaccine (1 of 3 - 19+ 3-dose series) Hepatitis B vaccine (1 of 3 - 19+ 3-dose series) [facility]bigail [facility] Start: 2014 Hepatitis C screening Hepatitis C sc reen [facility] Start: 2012 COVID-19 Vaccine (1) COVID-19 Vaccin e (1) [facility] [employer] Phone: Start: 2011 HIV screen HIV screen [place], [place] Start: 2011 HIV screening HIV screen [facility] Start: 2011 HPV vaccine (1 - Fem shiela 3-dose series) HPV vaccine (1 - Female 3-dose series) [place], [place] Start: 2009 Varicella Vaccine (1 of 2 - 13+ 2-dose series) Varicella Vaccine (1 of 2 - 13+ 2-dose series) [facility] Start: 2008 COVID-19 Vaccine (1) COVID-19 Vaccin e (1) [facility] [employer] Phone: Start: 2008 Depression Screen Depression Screen [facility] Start: 2007 HPV vaccine (1 - 2-d ose series) HPV vaccine (1 - 2-dose series) [facility] Start: 2007 HPV vaccine (1 - Fem shiela 2-dose series) HPV vaccine (1 - Female 2-dose series) [facility] [employer] Phone: Start: 2001 COVID-19 Vaccine (1) COVID-19 Vaccin e (1) [facility] Start: 1997 Varicella vaccine (1 of 2 - 2-dose childhood series) Varicella vaccine (1 of 2 - 2-dose childhood series) [facility] Start: 1996 COVID-19 Vaccine (#1) COVID-19 Vacci ne (#1) [facility] Start: 1996 Hepatitis C screening Hepatitis C sc reen [facility] [employer] [facility] Phone: End: 10-17-2024 Alpha Fetoprotein, Maternal [facility] [employer] Phone: Comment on above: Once for 1 Occurrenc es starting 10/17/2024 until 10/17/2024 End: 12-16-2021 GLENNY Screen with Reflex [facility] [employer] [facility] Phone: Comment on above: Once for 1 Occurrenc es starting 12/16/2021 until 12/16/2021 CHLAMYDIA TRACHOMATI S (GENITO/STI) CHLAMYDIA TRACHOMATIS (GENITO/STI) Lab Routine STD exposure Vaginal discharge Ordered: 09/26/2024 [facility] Comment on above: Ordered: 09/26/2024 Cytology Cervical or vaginal smear or scraping study Pap Smear Pathology and Cytology Routine Well woman exam with routine gynecological exam Ordered: 09/26/2024 [facility] Comment on above: Ordered: 09/26/2024 End: 10-02-2021 Cytopathology procedure, preparation of smear, genital source PAP SMEAR Lab Routine Women's annual routine gynecological examination 1 Occurrences starting 10/02/2021 until 10/02/2021 [facility] Phone: Comment on above: 1 Occurrences starti ng 10/02/2021 until 10/02/2021 End: 01-01-2023 Cytopathology procedure, preparation of smear, genital source PAP SMEAR Lab Routine Women's annual routine gynecological examination 1 Occurrences starting 01/01/2023 until 01/01/2023 [facility] Phone: Comment on above: 1 Occurrences starti ng 01/01/2023 until 01/01/2023 End: 12-16-2021 HLA-B27 Antigen [facility] Phone: Comment on above: Once for 1 Occurrenc es starting 12/16/2021 until 12/16/2021 End: 07-06-2019 Insulin, free Insulin, free Lab Routine Once for 1 Occurrences starting 07/06/2019 until 07/06/2019 [facility] Phone: Comment on above: Once for 1 Occurrenc es starting 07/06/2019 until 07/06/2019 Insulin, free Insulin, free La b Routine 07/06/2019 9:31 AM EST [facility] Phone: End: 12-16-2021 Lyme Ab B[facility] [employer] Phone: Comment on above: Once for 1 Occurrenc es starting 12/16/2021 until 12/16/2021 Neisseria gonorrhoea e DNA [Presence] in Unspecified specimen by KAILA with probe detection Neisseria gonorrhea DNA probe, direct Lab Routine STD exposure Vaginal discharge Ordered: 09/26/2024 [facility] Comment on above: Ordered: 09/26/2024 SURESWAB(R) ADVANCED VAGINITIS PLUS, TMA SURESWAB(R) ADVANCED VAGINITIS PLUS, TMA Pathology and Cytology Routine STD exposure Vaginal discharge Ordered: 09/26/2024 [facility] Work Phone: Comment on above: Ordered: 09/26/2024 End: 02-13-2025 US for US OB follow up transabdominal approach Imaging Routine Elevated glucose tolerance test Gestational diabetes mellitus (GDM), antepartum, gestational diabetes method of control unspecified ([facility]) q4 weeks for 4 Occurrences starting 12/13/2024 until 02/13/2025 [facility] Comment on above: q4 weeks for 4 Occur rences starting 12/13/2024 until 02/13/2025 Immunizations Immunization Date Immunization Notes Care Provider Em de la cruz 10-30-2007 tetanus toxoid, redu katelyn diphtheria toxoid, and acellular pertussis vaccine, adsorbed [facility] Payers Date Payer Category Payer Medicaid [id number] 2023 Medicaid [id number] 2023 Unknown [facility] [employer] [id number] 2023-Present [address] [address] [place] [address] [id number] 2022 Unknown [employer] [address] [id number] 2022-Present [address] [place] [address] [id number] [id number] 2018 Unknown [id number] 99.5.10.6.3 2016 Unknown [employer] [address] xxxxxxxxxxxx 2016-Present [phone] [address] [place] [address] xxxxxxxxxxxx [id number] .[id number] 1996 Unknown [id number] 2.16.840.1.820930.3.579.2.175 1996 Unknown [id number] 2.16.840.1.748366.3.579.2.173 1996 Unknown [id number] 2.16.840.1.485077.3.579.2.125 9 1996 Unknown [id number] 2.16.840.1.467431.3.579.2.125 9 1996 Unknown [id number] 2.16.840.1.715534.3.579.2.125 9 1996 Unknown [id number] 2.16.840.1.079419.3.579.2.125 9 1996 Unknown [id number] 2.16.840.1.330442.3.579.2.125 9 1996 Unknown [id number] 2.16.840.1.051696.3.579.2.125 9 1996 Unknown [id number] 2.16.840.1.858013.3.579.2.125 9 1996 Unknown [id number] 2.16.840.1.262101.3.579.2.125 9 1996 Unknown [id number] 2.16.840.1.499656.3.579.2.125 9 1996 Unknown [id number] 2.16.840.1.185337.3.579.2.125 9 1996 Unknown [id number] 2.16.840.1.462425.3.579.2.125 9 1996 Unknown [id number] 2.16.840.1.225891.3.579.2.125 9 1996 Unknown [id number] 2.16.840.1.527051.3.579.2.125 9 1996 Unknown [id number] 2.16.840.1.141141.3.579.2.125 9 1996 Unknown [id number] 2.16.840.1.835323.3.579.2.125 9 1996 Unknown [id number] 2.16.840.1.102138.3.579.2.125 9 1996 Unknown [id number] 2.16.840.1.021886.3.579.2.125 9 1996 Unknown [id number] 2.16.840.1.878564.3.579.2.125 9 Unknown [id number] 2.16.840.1.684321.3.441 Social History Date Type Detail Facility Assertion [facility] Work Phone: Assertion Emotional stress (finding) [facility] Work Phone: Tobacco smoking status Unknown if ever smoked [facility] Healthcare Assertion Sexually active (finding) [facility] Work Phone: Assertion Gender identity finding (finding) [facility] Work Phone: Assertion Finding of sexua l orientation (finding) [facility] Work Phone: Start: 02-07-2018 End: 01-06-2023 Tobacco smoking status NHIS Never smoker [place] Start: 02-07-2018 End: 01-20-2023 Alcohol intake Current drinker of alcohol (finding) [facility] [employer] [facility] Phone: Start: 12-12-2015 Alcohol Comment occassionally [place], [place] Start: 1996 Sex Assigned At Not on file [place] Start: 04-08-2020 End: 01-06-2023 Tobacco use and exposure Never used [facility] [employer] Exposure to SARS-CoV-2 (event) Not sure Tereza scrible ROBBY PERES Start: 02-07-2018 End: 01-20-2023 Alcohol intake Yes Tereza scrible ROB[facility] PERES Assertion Family illness (situation) [facility] Work Phone: Assertion Single person (finding) [facility] Work Phone: Start: *Tobacco [facility]ibe[facility] Start: 04-15-2023 [facility] Start: 01-20-2023 History of Social function [facility] Start: 10-12-2013 Sex Female (finding) [facility] NEGATED: Highlighted row Assertion Exposure to pollution (event) [facility] Work Phone: NEGATED: Highlighted row Assertion Tobacco user (finding) Health [facility] [...] Hospital Work Phone: Clinical Notes 11-06-2019 to 02-13-2025 Lindsey Dong LPN - 02/13/2025 9:10 AM Olive Dong LPN - 02/06/2025 10:10 AM CAYLA Bartlett - 01/23/2025 9:50 AM Leatha Cervantes DO - 01/09/2025 11:10 AM CAYLA Bartlett - 11/22/2024 1:50 PM EDT Note Date & Type Note Facility 02-13-2025 History of Presen t illness Narrative Reason [...] nursing note reviewed. Exam conducted with a horse racing analyst present. Vitals: Estimated body mass index is 43.54 kg/m as calculated from the following: Height as of 24: 5' 7 . Weight as of this encounter: 278 lb. BP: 128/80 No LMP recorded. Patient is . ASSESSMENT & PLAN ICD-10-CM 1. 37 weeks gestation of ([facility]) Z3A.37 POCT urinalysis dipstick manually resulted 2. Third trimester ([facility]) Z34.93 POCT urinalysis dipstick manually resulted 3. Gestational diabetes mellitus (GDM), antepartum, gestational diabetes method of control unspecified ([facility]) O24.419 4. Hyperglycemia during ([facility]) O99.810 Return OB: Patient presents today for a routine obstetrics appointment. Patient is currently 37w0d . Patient states she is doing well [...] Aditya Cervantes DO documented in this encounter [facility] 02-06-2025 History of Presen t illness Narrative [...] nursing note reviewed. Exam conducted with a horse racing analyst present. Vitals: Estimated body mass index is 43.38 kg/m as calculated from the following: Height as of 24: 5' 7 . Weight as of this encounter: 277 lb. BP: 126/78 No LMP recorded. Patient is . ASSESSMENT & PLAN ICD-10-CM 1. Third trimester ([facility]) Z34.93 POCT urinalysis dipstick manually resulted CULTURE, GROUP B STREP WITH SUSCEPTIBLITY CULTURE, GROUP B STREP WITH SUSCEPTIBLITY 2. 36 weeks gestation of ([facility]) Z3A.36 Patient is doing well but [...] Aditya Cervantes DO documented in this encounter [facility] 01-23-2025 History of Presen t illness Narrative [...] ASSESSMENT & PLAN ICD-10-CM 1. Third trimester ([facility]) Z34.93 CANCELED: POCT urinalysis dipstick manually resulted 2. 34 weeks gestation of ([facility]) Z3A.34 CANCELED: POCT urinalysis dipstick manually [...] of: CAYLA Kwok documented in this encounter [facility] 01-09-2025 History of Presen t illness [...] nursing note reviewed. Exam conducted with a horse racing analyst present. Vitals: Estimated body mass index is [...] Aditya Cervantes DO documented in this encounter [facility] 12-27-2024 History of Presen t illness [...] nursing note reviewed. Exam conducted with a horse racing analyst present. Vitals: Estimated body mass index is 42.88 kg/m as calculated from the following: Height as of 01/10/24: 5' 7 . Weight as of this encounter: 273 lb 12.8 oz. BP: 122/74 No LMP recorded. Patient is . ASSESSMENT & PLAN ICD-10-CM 1. Third trimester ([facility]) [...] routine OB appointment. documented in this encounter [facility] 12-13-2024 History of Presen t illness [...] of gestational diabetes Z86.32 3. Third trimester ([facility]) Z34.93 POCT urinalysis dipstick manually resulted 4. 28 weeks gestation of ([facility]) Z3A.28 POCT urinalysis dipstick manually resulted [...] Aditya Cervantes DO documented in this encounter [facility] 11-22-2024 History of Presen t illness Narrative Reason for Appointment: Patient ID: Etsefania Cedeño is a 29 y.o. female who [...] PLAN ICD-10-CM 1. 25 weeks gestation of ([facility]) Z3A.25 POCT urinalysis dipstick manually resulted 2. Second trimester ([facility]) Z34.92 POCT urinalysis dipstick manually resulted [...] Aditya Cervantes DO documented in this encounter [facility] 10-25-2024 History of Presen t illness [...] of: CAYLA Kwok documented in this encounter [facility] 09-26-2024 History of Presen t illness [...] nursing note reviewed. Exam conducted with a horse racing analyst present. Vitals: Estimated body mass index is [...] Aditya Cervantes DO documented in this encounter [facility] 08-29-2024 History of Presen t illness [...] nursing note reviewed. Exam conducted with a horse racing analyst present. Vitals: Estimated body mass index is [...] or undercooked meat, and stay away from [facility]. Patient has been consulted regarding any further do's and don'ts of . Patient voiced understanding and all questions and concerns were answered. Orders Placed This Encounter Procedures POCT urinalysis dipstick manually resulted Follow Up: Patient is to return in 4 weeks for routine OB appointment. Documented by Lindsey Dong LPN on behalf of: Aditya Cervantes DO documented in this encounter [facility] 06-14-2024 History of Presen t illness [...] of: CAYLA Kwok documented in this encounter [facility] 05-17-2024 History of Presen t illness [...] of CAYLA Kwok documented in this encounter [facility] 04-18-2024 History of Presen t illness [...] of: CAYLA Kwok documented in this encounter [facility] 02-21-2024 History of Presen t illness [...] of: CAYLA Kwok documented in this encounter [facility] 07-15-2023 History of Presen t illness [...] Aditya Cervantes DO documented in this encounter [facility] 09-23-2020 Evaluation note Includes: Assessments for all patient encounters Findings Anxiety disorder NOS [facility] e[facility] with Jammie RODAS 09/23/2020 Assessment of visit for: screening for human immunodeficiency virus Medical Established Patient with Miguel Holley [facility] 09/23/2020 Diabetes Risk Test Score was three score 09/23/2020 Medical Established Patient with Miguel Holley [facility] 09/23/2020 Morbid obesity Medical Established Patient with Miguel Holley [facility] 09/23/2020 Routine adult history and physical (18-64 yrs) without abnormal findings Medical Established Patient with Miguel Holley [facility] 09/23/2020 Z68.41 - Body mass index [BMI]40.0-44.9, adult Medical Established Patient with Miguel Holley [facility] 09/23/2020 Cough Telemedicine Establi sted Patient with Miguel Holley [facility] 03/19/2020 Exposure to a viral disease Telemedicine Establisted Patient with Miguel Holley [facility] 03/19/2020 Obesity due to excess calories Telemedic ine Establisted Patient with Miguel Dell [facility] 03/19/2020 Z68.37 - Body mass index [BM I] 37.0-37.9, adult Telemedicine Establisted Patient with Miguel Holley [facility] 03/19/2020 Obesity due to excess calories Medical E stablished Patient with Miguel Dell [facility] 03/05/2020 Z68.37 - Body mass index [BM I] 37.0-37.9, adult Medical Established Patient with Miguel Holley [facility] 03/05/2020 Obesity due to excess calories Medical E stablished Patient with Poly Wagonerle [facility] 12/05/2019 R21 - Rash and other nonspecific skin eruption Medical Established Patient with Polykamryn Wagonerle [facility] 12/05/2019 Z68.35 - Body mass index (BM I) 35.0-35.9, adult Medical Established Patient with Poly Wagonerle [facility] 12/05/2019 Obesity due to excess calories Medical E stablished Patient with Poly Salvador [facility] 11/06/2019 Z68.36 - Body mass index (BM I) 36.0-36.9, adult Medical Established Patient with Poly Wagonerle [facility] 11/06/2019 Obesity due to excess calories Medical E stablished Patient with Polykamryn Wagonerle [facility] 10/12/2019 Z68.38 - Body mass index (BM I) 38.0-38.9, adult Medical Established Patient with Poly Wagonerle [facility] 10/12/2019 L25.5 - Unspecified contact dermatitis due to plants, except food Medical Established Patient with Polykamryn Wagonerle [facility] 09/14/2019 Obesity due to excess calories Medical E stablished Patient with Poly Salvador [facility] 09/14/2019 Z68.37 - Body mass index (BM I) 37.0-37.9, adult Medical Established Patient with Polykamryn Wagonerle [facility] 09/14/2019 L25.5 - Unspecified contact dermatitis due to plants, except food Telemedicine with Poly Wagonerle [facility] 09/11/2019 Obesity due to excess calories Telemedic ine with Polykamryn Wagonerle [facility] 09/11/2019 Z68.37 - Body mass index (BM I) 37.0-37.9, adult Telemedicine with Poly Salvador [facility] 09/11/2019 Dermatitis due to contact wi th poison spencer Telemedicine with Poly Salvador [facility] 09/05/2019 Obesity due to excess calories Telemedic ine with Poly Wagonerle [facility] 09/05/2019 Z68.37 - Body mass index (BM I) 37.0-37.9, adult Telemedicine with Poly Wagonerle [facility] 09/05/2019 Obesity due to excess calories Medical E stablished Patient with Miguel Holley [facility] 08/17/2019 Z68.37 - Body mass index (BM I) 37.0-37.9, adult Medical Established Patient with Miguel Holley CNP 08/17/2019 Generalized anxiety disorder BH Establis hed Patient with Anh VIDAL 07/06/2019 Anxiety disorder NOS Medical New Patient with Allyson Floyd CNP 07/06/2019 Depression Medical New Patient with Allyson Floyd CNP 07/06/2019 Diabetes Risk Test Score was one score Medical New Patient with Allyson Floyd CNP 07/06/2019 Idiopathic insomnia Medical New Patient with Allyson Floyd CNP 07/06/2019 Obesity due to excess calories Medical N ew Patient with Allyson Floyd CNP 07/06/2019 Z68.39 - Body mass index (BM I) 39.0-39.9 adult Medical New Patient with Allyson Floyd CNP 07/06/2019 [facility] Work Phone: [phone] 193-168306-08-2020 History general Narrative - Reported Includes: Medical [...] 09/23/2020 Medical Established Patient with Miguel Holley [facility] 09/23/2020 Morbid obesity Medical Established Patient with Miguel Holley [facility] 09/23/2020 Routine adult history and ph ysical (18-64 yrs) without abnormal findings Medical Established Patient with Miguel Holley CNP 09/23/2020 Z68.41 - Body mass index [BMI]40.0-44.9, adult Medical Established Patient with Miguel Holley [facility] 09/23/2020 Cough Telemedicine Establi sted Patient with Miguel Holley [facility] 03/19/2020 Exposure to a viral disease Telemedicine Establisted Patient with Miguel Holley [facility] 03/19/2020 Obesity due to excess calories Telemedic ine Establisted Patient with Miguel Holley [facility] 03/19/2020 Z68.37 - Body mass index [BM I] 37.0-37.9, adult Telemedicine Establisted Patient with Miguel Holley [facility] 03/19/2020 Obesity due to excess calories Medical E stablished Patient with Miguel Holley [facility] 03/05/2020 Z68.37 - Body mass index [BM I] 37.0-37.9, adult Medical Established Patient with Miguel Holley [facility] 03/05/2020 Obesity due to excess calories Medical E stablished Patient with Poly Franco [facility] 12/05/2019 R21 - Rash and other nonspec [facility] skin eruption Medical Established Patient with Poly Wagonerle [facility] 12/05/2019 Z68.35 - Body mass index (BM I) 35.0-35.9, adult Medical Established Patient with Poly Franco [facility] 12/05/2019 Obesity due to excess calories Medical E stablished Patient with Poly Wagonerle [facility] 11/06/2019 Z68.36 - Body mass index (BM I) 36.0-36.9, adult Medical Established Patient with Poly Franco [facility] 11/06/2019 Obesity due to excess calories Medical E stablished Patient with Poly Wagonerle [facility] 10/12/2019 Z68.38 - Body mass index (BM I) 38.0-38.9, adult Medical Established Patient with Polykamryn Wagonerle [facility] 10/12/2019 L25.5 - Unspecified contact dermatitis due to plants, except food Medical Established Patient with Poly Wagonerle [facility] 09/14/2019 Obesity due to excess calories Medical E stablished Patient with Poly Wagonerle [facility] 09/14/2019 Z68.37 - Body mass index (BM I) 37.0-37.9, adult Medical Established Patient with Poly Franco [facility] 09/14/2019 L25.5 - Unspecified contact dermatitis due to plants, except food Telemedicine with Poly Wagonerle [facility] 09/11/2019 Obesity due to excess calories Telemedicine with Poly Wagonerle [facility] 09/11/2019 Z68.37 - Body mass index (BM I) 37.0-37.9, adult Telemedicine with Poly Wagonerle [facility] 09/11/2019 Dermatitis due to contact wi th poison spencer Telemedicine with Poly Wagonerle [facility] 09/05/2019 Obesity due to excess calories Telemedicine with Poly Wagonerle [facility] 09/05/2019 Z68.37 - Body mass index (BM I) 37.0-37.9, adult Telemedicine with Poly Wagonerle [facility] 09/05/2019 Obesity due to excess calories Medical E stablished Patient with Miguel Holley [facility] 08/17/2019 Z68.37 - Body mass index (BM I) 37.0-37.9, adult Medical Established Patient with Miguel Holley [facility] 08/17/2019 Generalized anxiety disorder BH Establis hed Patient with Anh RODAS-S 07/06/2019 Anxiety disorder NOS Medical New Patient with Allyson Floyd [facility] 07/06/2019 Depression Medical New Patient with Allyson Floyd [facility] 07/06/2019 Diabetes Risk Test Score was one score M edical New Patient with Allysonheidi Floyd [facility] 07/06/2019 Idiopathic insomnia Medical New Patient with Allyson Floyd [facility] 07/06/2019 Obesity due to excess calories Medical N ew Patient with Allyson Floyd [facility] 07/06/2019 Z68.39 - Body mass index (BM I) 39.0-39.9 adult Medical New Patient with Allyson Floyd [facility] 07/06/2019 [facility] Work Phone: Evaluation note* Diagnosis Nausea vomiting and diarrhea- Primary Nausea with vomiting Generalized abdominal pain Abdominal pain, generalized documented in this encounter [facility] Phone: evaluation note* Diagnosis Women's annual routine gynecological examination documented in this encounter [facility] Phone: evaluation note* Diagnosis Women's annual routine gynecological examination Intrauterine contraceptive device threads lost, initial encounter documented in this encounter [employer] CertainEvaluation note* Diagnosis Second trimester state, incidental documented [...] [facility] Diagnosis 37 weeks gestation of (HHS-HCC) Third trimester (HHS-HCC) state, incidental Gestational diabetes mellitus (GDM), antepartum, gestational diabetes method of control unspecified (HHS-HCC) Hyperglycemia during (HHS-HCC) documented [facility] this encounter [facility] Present illness Narrative History of Present Illness not supported for this document type No History of Present Illness [facility] Work Phone: Hospital Discharge instructions* Attachments The following attachments cannot be sent through Care Everywhere. * Abdominal Pain (Afghan) * Nausea and Vomiting (Afghan) * Diarrhea ([place]) [facility] Instructions Instructions not supported for this document type No Instructions [facility] Work Phone: Patient problem outcome Narrative Includes: Evaluations & Outcomes for active Goals No Outcomes [facility] Work Phone: Reason for referral (narrative)No Reason for Referral [facility] [employer] [facility] Work Phone: Review of systems Narrative - Reported Review of Systems not supported for this document type No Review of Systems 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 Advance Directives and Living Will Power of Rn Orthopedic Documents on File Type Date Recorded 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 ACP-Advance Directive ACP-Power of Rn Orthopedic Documents on File Type Date Recorded 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 Advance Directives and Living Will Power of Rn Orthopedic Date Activated Date Inactivated Comments 01/20/2023 7:21 [...] Depression Medical New Patient with Allyson Floyd [facility] 07/06/2019 Diabetes Risk Test Score was one score Medical New Patient with Allyson Floyd [facility] 07/06/2019 Idiopathic insomnia Medical New Patient with Allyson Floyd [facility] 07/06/2019 Obesity due to excess calories Medical N ew Patient with Allyson Floyd [facility] 07/06/2019 Z68.39 - Body mass index (BM I) 39.0-39.9 adult Medical New Patient with Allyson Floyd [facility] 07/06/2019 Findings Encounter Date Obesity due to excess calories Medical E stablished Patient with Poly Franco [facility] 10/12/2019 Z68.38 - Body mass index (BM I) 38.0-38.9, adult Medical Established Patient with Polykamryn Wagonerle [facility] 10/12/2019 L25.5 - Unspecified contact dermatitis due to plants, except food Medical Established Patient with Poly Wagonerle [facility] 09/14/2019 Obesity due to excess calories Medical E stablished Patient with Polykamryn Wagonerle [facility] 09/14/2019 Z68.37 - Body mass index (BM I) 37.0-37.9, adult Medical Established Patient with Poly Franco [facility] 09/14/2019 L25.5 - Unspecified contact dermatitis due to plants, except food Telemedicine with Poly Wagonerle [facility] 09/11/2019 Obesity due to excess calories Telemedicine with Poly Wagonerle [facility] 09/11/2019 Z68.37 - Body mass index (BM I) 37.0-37.9, adult Telemedicine with Poly Wagonerle [facility] 09/11/2019 Dermatitis due to contact wi th poison spencer Telemedicine with Poly Franco [facility] 09/05/2019 Obesity due to excess calories Telemedicine with Poly Franco [facility] 09/05/2019 Z68.37 - Body mass index (BM I) 37.0-37.9, adult Telemedicine with Poly Wagonerle [facility] 09/05/2019 Obesity due to excess calories Medical E stablished Patient with Miguel Holley [facility] 08/17/2019 Z68.37 - Body mass index (BM I) 37.0-37.9, adult Medical Established Patient with Miguel Holley [facility] 08/17/2019 Generalized anxiety disorder BH Establis hed Patient with Anh VIDAL 07/06/2019 Anxiety disorder NOS Medical New Patient with Allyson Floyd [facility] 07/06/2019 Depression Medical New Patient with Allyson Floyd [facility] 07/06/2019 Diabetes Risk Test Score was one score Medical New Patient with Allyson Floyd CNP 07/06/2019 Idiopathic insomnia Medical New Patient with Allyson Floyd [facility] 07/06/2019 Obesity due to excess calories Medical N ew Patient with Allyson Floyd [facility] 07/06/2019 Z68.39 - Body mass index (BM I) 39.0-39.9 adult Medical New Patient with Allyson Floyd [facility] 07/06/2019 Findings Encounter Date Obesity due to excess calories Medical E stablished Patient with Miguel Holley [facility] 08/17/2019 Z68.37 - Body mass index (BM I) 37.0-37.9, adult Medical Established Patient with Miguel Holley [facility] 08/17/2019 Generalized anxiety disorder BH Establis hed Patient with Anhbrad Virk 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/2019 Anxiety disorder NOS Medical New Patient with Allyson Everett [facility] 07/06/2019 Depression Medical New Patient with Allyson Floyd [facility] 07/06/2019 Diabetes Risk Test Score was one score Medical New Patient with Allyson Floyd [facility] 07/06/2019 Idiopathic insomnia Medical New Patient with Allyson Floyd [facility] 07/06/2019 Obesity due to excess calories Medical N ew Patient with Allyson Floyd [facility] 07/06/2019 Z68.39 - Body mass index (BM I) 39.0-39.9 adult Medical New Patient with Allyson Floyd [facility] 07/06/2019 Findings Encounter Date Dermatitis due to contact wi th poison spencer Telemedicine with Poly Franco [facility] 09/05/2019 Obesity due to excess calories Telemedicine with Poly Wagonerle [facility] 09/05/2019 Z68.37 - Body mass index (BM I) 37.0-37.9, adult Telemedicine with Poly Salvador [facility] 09/05/2019 Obesity due to excess calories Medical E stablished Patient with Miguel Holley [facility] 08/17/2019 Z68.37 - Body mass index (BM I) 37.0-37.9, adult Medical Established Patient with Miguel Holley [facility] 08/17/2019 Generalized anxiety disorder BH Establis hed Patient with Anh Virk 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/2019 Anxiety disorder NOS Medical New Patient with Allyson Burlington [facility] 07/06/2019 Depression Medical New Patient with Allyson Everett [facility] 07/06/2019 Diabetes Risk Test Score was one score Medical New Patient with Allyson Everett [facility] 07/06/2019 Idiopathic insomnia Medical New Patient with Allyson Floyd [facility] 07/06/2019 Obesity due to excess calories Medical N ew Patient with Allyson Floyd [facility] 07/06/2019 Z68.39 - Body mass index (BM I) 39.0-39.9 adult Medical New Patient with Allyson Floyd [facility] 07/06/2019 Findings Encounter Date L25.5 - Unspecified contact dermatitis due to plants, except food Telemedicine with Poly Franco [facility] 09/11/2019 Obesity due to excess calories [facility] Z68.37 - Body mass index (BM I) 37.0-37.9, adult Telemedicine with Poly [facility] 09/11/2019 Dermatitis due to contact wi th poison spencer Telemedicine with Poly Franco [facility] 09/05/2019 Obesity due to excess calories [facility] Z68.37 - Body mass index (BM I) 37.0-37.9, adult Telemedicine with Poly Franco [facility] 09/05/2019 Obesity due to excess calories Medical E stablished Patient with Miguel Holley [facility] 08/17/2019 Z68.37 - Body mass index (BM I) 37.0-37.9, adult Medical Established Patient with Miguel Holley [facility] 08/17/2019 Generalized anxiety disorder BH Establis hed Patient with Anh VIDAL 07/06/2019 Anxiety disorder NOS Medical New Patient with Allyson Floyd [facility] 07/06/2019 Depression Medical New Patient with Allyson Floyd [facility] 07/06/2019 Diabetes Risk Test Score was one score Medical New Patient with Allyson Floyd [facility] 07/06/2019 Idiopathic insomnia Medical New Patient with Allyson Floyd [facility] 07/06/2019 Obesity due to excess calories Medical N ew Patient with Allyson Floyd [facility] 07/06/2019 Z68.39 - Body mass index (BM I) 39.0-39.9 adult Medical New Patient with Allyson Floyd [facility] 07/06/2019 Findings Encounter Date L25.5 - Unspecified contact dermatitis due to plants, except food Medical Established Patient with Poly Franco [facility] 09/14/2019 Obesity due to excess calories Medical E stablished Patient with Poly Franco [facility] 09/14/2019 Z68.37 - Body mass index (BM I) 37.0-37.9, adult Medical Established Patient with Poly Franco [facility] 09/14/2019 L25.5 - Unspecified contact dermatitis due to plants, except food Telemedicine with Poly Franco [facility] 09/11/2019 Obesity due to excess calories Telemedicine with Poly Wagonerle [facility] 09/11/2019 Z68.37 - Body mass index (BM I) 37.0-37.9, adult Telemedicine with Poly Franco [facility] 09/11/2019 Dermatitis due to contact wi th poison spencer Telemedicine with Poly Franco [facility] 09/05/2019 Obesity due to excess calories Telemedicine with Poly Franco [facility] 09/05/2019 Z68.37 - Body mass index (BM I) 37.0-37.9, adult Telemedicine with Poly Franco [facility] 09/05/2019 Obesity due to excess calories Medical E stablished Patient with Miguel Holley [facility] 08/17/2019 Z68.37 - Body mass index (BM I) 37.0-37.9, adult Medical Established Patient with Miguel Holley [facility] 08/17/2019 Generalized anxiety disorder BH Establis hed Patient with Anh FERNANDEZS 07/06/2019 Anxiety disorder NOS Medical New Patient with Allyson Burlington [facility] 07/06/2019 Depression Medical New Patient with Allyson Everett [facility] 07/06/2019 Diabetes Risk Test Score was one score Medical New Patient with Allyson Everett [facility] 07/06/2019 Idiopathic insomnia Medical New Patient with Allyson [place] [facility] 07/06/2019 Obesity due to excess calories Medical N ew Patient with Allyson [place] [facility] 07/06/2019 Z68.39 - Body mass index (BM I) 39.0-39.9 adult Medical New Patient with Allyson [place] [facility] 07/06/2019 Findings Encounter Date Obesity due to excess calories Medical E stablished Patient with Poly Wagonerle [facility] 11/06/2019 Z68.36 - Body mass index (BM I) 36.0-36.9, adult Medical Established Patient with Poly Wagonerle [facility] 11/06/2019 Obesity due to excess calories Medical E stablished Patient with Poly Wagonerle [facility] 10/12/2019 Z68.38 - Body mass index (BM I) 38.0-38.9, adult Medical Established Patient with Poly Wagonerle [facility] 10/12/2019 L25.5 - Unspecified contact dermatitis due to plants, except food Medical Established Patient with Poly Franco [facility] 09/14/2019 Obesity due to excess calories Medical E stablished Patient with Poly Franco [facility] 09/14/2019 Z68.37 - Body mass index (BM I) 37.0-37.9, adult Medical Established Patient with Poly Franco [facility] 09/14/2019 L25.5 - Unspecified contact dermatitis due to plants, except food Telemedicine with Poly Franco [facility] 09/11/2019 Obesity due to excess calories Telemedicine with Poly Franco [facility] 09/11/2019 Z68.37 - Body mass index (BM I) 37.0-37.9, adult Telemedicine with Poly Franco [facility] 09/11/2019 Dermatitis due to contact wi th poison spencer Telemedicine with Poly Franco [facility] 09/05/2019 Obesity due to excess calories Telemedicine with Poly Franco [facility] 09/05/2019 Z68.37 - Body mass index (BM I) 37.0-37.9, adult Telemedicine with Poly Franco [facility] 09/05/2019 Obesity due to excess calories Medical E stablished Patient with Miguel Holley [facility] 08/17/2019 Z68.37 - Body mass index (BM I) 37.0-37.9, adult Medical Established Patient with Miguel Holley [facility] 08/17/2019 Generalized anxiety disorder BH Establis hed Patient with Anh VIDAL 07/06/2019 Anxiety disorder NOS Medical New Patient with Allyson Floyd [facility] 07/06/2019 Depression Medical New Patient with Allyson [place] [facility] 07/06/2019 Diabetes Risk Test Score was one score Medical New Patient with Allyson [place] [facility] 07/06/2019 Idiopathic insomnia Medical New Patient with Allyson Everett [facility] 07/06/2019 Obesity due to excess calories Medical N ew Patient with Allyson [place] [facility]IC[facility] 07/06/2019 Z68.39 - Body mass index (BM I) 39.0-39.9 adult Medical New Patient with Allyson [place] [facility]IC[facility] 07/06/2019 Findings Encounter Date Obesity due to excess calories Medical E stablished Patient with Poly Franco [facility] 12/05/2019 R21 - Rash and other nonspec ific skin eruption Medical Established Patient with Poly Franco [facility] 12/05/2019 Z68.35 - Body mass index (BM I) 35.0-35.9, adult Medical Established Patient with Poly Franco [facility] 12/05/2019 Obesity due to excess calories Medical E stablished Patient with Poly Franco [facility] 11/06/2019 Z68.36 - Body mass index (BM I) 36.0-36.9, adult Medical Established Patient with Poly Franco [facility] 11/06/2019 Obesity due to excess calories Medical E stablished Patient with Poly Wagonerle [facility] 10/12/2019 Z68.38 - Body mass index (BM I) 38.0-38.9, adult Medical Established Patient with Polykamryn Franco [facility] 10/12/2019 L25.5 - Unspecified contact dermatitis due to plants, except food Medical Established Patient with Poly Wagonerle [facility] 09/14/2019 Obesity due to excess calories Medical E stablished Patient with Poly Wagonerle [facility] 09/14/2019 Z68.37 - Body mass index (BM I) 37.0-37.9, adult Medical Established Patient with Poly Franco [facility] 09/14/2019 L25.5 - Unspecified contact dermatitis due to plants, except food Telemedicine with Poly Franco [facility] 09/11/2019 Obesity due to excess calories Telemedicine with Poly Wagonerle [facility] 09/11/2019 Z68.37 - Body mass index (BM I) 37.0-37.9, [facility] Dermatitis due to contact wi th poison spencer Telemedicine with Poly Franco [facility] 09/05/2019 Obesity due to excess calories Telemedicine with Poly Franco [facility] 09/05/2019 Z68.37 - Body mass index (BM I) 37.0-37.9, adult Telemedicine with Poly Wagonerle [facility] 09/05/2019 Obesity due to excess calories Medical E stablished Patient with Miguel Holley [facility] 08/17/2019 Z68.37 - Body mass index (BM I) 37.0-37.9, adult Medical Established Patient with Miguelcristal Anguloen [facility] 08/17/2019 Generalized anxiety disorder BH Establis hed Patient with Anh VIDAL 07/06/2019 Anxiety disorder NOS Medical New Patient with Allysonheidi lFoyd [facility] 07/06/2019 Depression Medical New Patient with Allysonheidi Floyd [facility] 07/06/2019 Diabetes Risk Test Score was one score Medical New Patient with Allyson Floyd [facility] 07/06/2019 Idiopathic insomnia Medical New Patient with Allyson Floyd [facility] 07/06/2019 Obesity due to excess calories Medical N ew Patient with Allyson Floyd [facility] 07/06/2019 Z68.39 - Body mass index (BM I) 39.0-39.9 adult Medical New Patient with Allyson Floyd [facility] 07/06/2019 Findings Encounter Date Obesity due to excess calories Medical E stablished Patient with Miguel Holley [facility] 03/05/2020 Z68.37 - Body mass index [BM I] 37.0-37.9, adult Medical Established Patient with Miguel Holley [facility] 03/05/2020 Obesity due to excess calories Medical E stablished Patient with Poly Wagonerle [facility] 12/05/2019 R21 - [facility] Patient with Polykamryn Wagonerle [facility] 12/05/2019 Z68.35 - Body mass index (BM I) 35.0-35.9, adult Medical Established Patient with Poly Wagonerle [facility] 12/05/2019 Obesity due to excess calories Medical E stablished Patient with Poly Salvador [facility] 11/06/2019 Z68.36 - Body mass index (BM I) 36.0-36.9, adult Medical Established Patient with Polykamryn Wagonerle [facility] 11/06/2019 Obesity due to excess calories Medical E stablished Patient with Poly Salvador [facility] 10/12/2019 Z68.38 - Body mass index (BM I) 38.0-38.9, adult Medical Established Patient with Poly Salvador [facility] 10/12/2019 L25.5 - Unspecified contact dermatitis due to plants, except food Medical Established Patient with Poly Salvador [facility] 09/14/2019 Obesity due to excess calories Medical E stablished Patient with Poly Salvador [facility] 09/14/2019 Z68.37 - Body mass index (BM I) 37.0-37.9, adult Medical Established Patient with Poly Salvador [facility] 09/14/2019 L25.5 - Unspecified contact dermatitis due to plants, except food Telemedicine with Poly Salvador [facility] 09/11/2019 Obesity due to excess calories Telemedicine with Poly Salvador [facility] 09/11/2019 Z68.37 - Body mass index (BM I) 37.0-37.9, adult Telemedicine with Poly Salvador [facility] 09/11/2019 Dermatitis due to contact wi th poison spencer Telemedicine with Poly Franco [facility] 09/05/2019 Obesity due to excess calories Telemedicine with Poly Franco [facility] 09/05/2019 Z68.37 - Body mass index (BM I) 37.0-37.9, adult Telemedicine with Poly Franco [facility] 09/05/2019 Obesity due to excess calories Medical E stablished Patient with Miguel Holley [facility] 08/17/2019 Z68.37 - Body mass index (BM I) 37.0-37.9, adult Medical Established Patient with Miguel Holley [facility] 08/17/2019 Generalized anxiety disorder BH Establis hed Patient with Anh VIDAL 07/06/2019 Anxiety disorder NOS Medical New Patient with Allyson Floyd [facility] 07/06/2019 Depression Medical New Patient with Allyson Floyd [facility] 07/06/2019 Diabetes Risk Test Score was one score Medical New Patient with Allyson Floyd [facility] 07/06/2019 Idiopathic insomnia Medical New Patient with Allyson Floyd [facility] 07/06/2019 Obesity due to excess calories Medical N ew Patient with Allyson Floyd [facility] 07/06/2019 Z68.39 - Body mass index (BM I) 39.0-39.9 adult Medical New Patient with Allyson Floyd [facility] 07/06/2019 Findings Encounter Date Cough Telemedicine Establi sted Patient with Miguel Holley [facility] 03/19/2020 Exposure to a viral disease Telemedicine Establisted Patient with Miguel Holley [facility] 03/19/2020 Obesity due to excess calories Telemedic ine Establisted Patient with Miguel Holley [facility] 03/19/2020 Z68.37 - Body mass index [BM I] 37.0-37.9, adult Telemedicine Establisted Patient with Miguel Holley [facility] 03/19/2020 Obesity due to excess calories Medical E stablished Patient with Miguel Holley [facility] 03/05/2020 Z68.37 - Body mass index [BM I] 37.0-37.9, adult Medical Established Patient with Miguel Holley [facility] 03/05/2020 Obesity due to excess calories Medical E stablished Patient with Poly Franco [facility] 12/05/2019 R21 - Rash and other nonspec ific skin eruption Medical Established Patient with Poly Franco [facility] 12/05/2019 Z68.35 - Body mass index (BM I) 35.0-35.9, adult Medical Established Patient with Poly Franco [facility] 12/05/2019 Obesity due to excess calories Medical E stablished Patient with Poly Wagonerle [facility] 11/06/2019 Z68.36 - Body mass index (BM I) 36.0-36.9, adult Medical Established Patient with Poly Franco [facility] 11/06/2019 Obesity due to excess calories Medical E stablished Patient with Poly Wagonerle [facility] 10/12/2019 Z68.38 - Body mass index (BM I) 38.0-38.9, adult Medical Established Patient with Polykamryn Wagonerle [facility] 10/12/2019 L25.5 - Unspecified contact dermatitis due to plants, except food Medical Established Patient with Poly Wagonerle [facility] 09/14/2019 Obesity due to excess calories Medical E stablished Patient with Poly Wagonerle [facility] 09/14/2019 Z68.37 - Body mass index (BM I) 37.0-37.9, adult Medical Established Patient with Poly Franco [facility] 09/14/2019 L25.5 - Unspecified contact dermatitis due to plants, except food Telemedicine with Poly Franco [facility] 09/11/2019 Obesity due to excess calories Telemedicine with Poly Wagonerle [facility] 09/11/2019 Z68.37 - Body mass index (BM I) 37.0-37.9, [facility] Dermatitis due to contact wi th poison spencer Telemedicine with Poly Franco [facility] 09/05/2019 Obesity due to excess calories Telemedicine with Poly Franco [facility] 09/05/2019 Z68.37 - Body mass index (BM I) 37.0-37.9, adult Telemedicine with Poly Wagonerle [facility] 09/05/2019 Obesity due to excess calories Medical E stablished Patient with Miguel Holley [facility] 08/17/2019 Z68.37 - Body mass index (BM I) 37.0-37.9, adult Medical Established Patient with Miguel Dell [facility] 08/17/2019 Generalized anxiety disorder BH Establis hed Patient with Anh VIDAL 07/06/2019 Anxiety disorder NOS Medical New Patient with Allysonheidi Floyd [facility] 07/06/2019 Depression Medical New Patient with Allyson Everett [facility] 07/06/2019 Diabetes Risk Test Score was one score Medical New Patient with Allyson Floyd [facility] 07/06/2019 Idiopathic insomnia Medical New Patient with Allyson Floyd [facility] 07/06/2019 Obesity due to excess calories Medical N ew Patient with Allyson Floyd [facility] 07/06/2019 Z68.39 - Body mass index (BM I) 39.0-39.9 adult Medical New Patient with Allyson Floyd [facility] 07/06/2019 Diagnosis COVID-19 Fatty liver Other chronic [...] Everywhere. * Coronavirus Disease (COVID-19): General Info ([place]) documented in this encounter Additional Source Comments INFORMATION SOURCE (unrecogn ized section and content) DATE CREATED AUTHOR 11/24/[address] [facility] DATE CREATED AUTHOR AUTHOR'S ORGANIZ ATION 08/26/2018 [facility] DATE CREATED AUTHOR AUTHOR'S ORGANIZ ATION 09/24/2020 [facility] DATE CREATED AUTHOR AUTHOR'S ORGANIZ ATION 10/30/2024 [facility] DATE CREATED AUTHOR AUTHOR'S ORGANIZ ATION 02/14/2025 [facility] EPIC Evaluations & Outcomes (unre [...] US TRANSVAGINAL, NON OB Dana Akins MD [address] [place] [id number] [facility] Ul[facility] [address] [place] [address] Reason Comments Emesis multiple episodes si nce [...] Care Teams (unrecognized sec tion and content) 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 [employer] [facility] provides no warranty or guarantee of the accuracy or completeness of information in this document.
== END 2025-02-16 10:10 | disposition home or self-care (01) ==
LOC: US 09:04 → FBC 09:05
PROVIDERS: Visit Provider Obstetrics & Gynecology
DX: O24.419 Gestational diabetes mellitus in pregnancy, unspecified control (principal)
CPT/HCPCS: 76818

== ENCOUNTER 2025-02-21 06:29 | Inpatient (IN) | payer MEDICAID, SELFPAY ==
[2025-02-21] VITALS (18 sets, daily range): BP systolic 87–126; BP diastolic 46–89; PULSE 58–73; TEMP 36.6; O2SAT 93–99
--- OUTSIDE RECORDS SUMMARY | 2025-02-21 06:34 | XMS_ITS | CCD ---
Author Organization [facility] CliniSyar Care Team Providers Care Project Controls Scheduler Name Role Phone NO FAMILY PHYSICIAN, 837 Unavailable Unavail able FELIX GALVAN Unavailable Unavailable Miguel Holley Primary Care Provider Jackson Haas Primary Care Provider Miguel Holley Primary Care Provider Miguel Holley Primary Care Provider Miguel Holley CNP Primary Care Provider Leydi ENVIRONMENTAL ECONOMIST - DIANELYS, Miguel Berry Primary Care Provider MIGUEL HOLLEY Referring Unavailable MIGUEL HOLLEY Primary Care Unavailable Leydi ENVIRONMENTAL ECONOMIST - DIANELYS, Miguel Berry Primary Care Provider Leydi ENVIRONMENTAL ECONOMIST - DIANELYS, Miguel Berry Primary Care Provider Shona Lucio Primary Care Physician Yeison Holley ENVIRONMENTAL ECONOMIST - APPRENTICE ELECTRICIAN, Miguel Berry Primary Care Provider Leydi ENVIRONMENTAL ECONOMIST - Miguel IVORY Primary Care Provider Unavailable [...] Drug Allergy 03-05-20 20 Wellbutrin SR [facility] Work Phone: Corticosteroids (6 sources) Triamcinolone Drug Allergy 10-14-19 14 Other (See Comments) [facility] Lisdexamfetamine (1 source) Lisdexamfetamine Drug Allergy 10-04-19 21 Vyvanse [facility] Work Phone: Naltrexone (4 sources) Naltrexone; Translations: [Naltrexone HCl 50 MG Oral Tablet] Drug Allergy 03-05-20 20 Naltrexone HCl [facility] Work Phone: (1 source) Triamcinolone; Translations: [TRIAMCINOLONE ACETONIDE] Drug Allergy 10-12-19 15 [facility] Repository (16 sources) Triamcinolone; Translations: [Kenalog] Drug Allergy 07-06-19 [facility] Work Phone: (20 sources) Triamcinolone Drug Allergy 10-14-19 14 Other (See Comments), Other, Hives [place], [place] (17 sources) Poison spencer Allergy to substance 07-20-19 [facility] Work Phone: (3 sources) buPROPion; Translations: [Wellbutrin SR 100 MG Oral Tablet Extended Release 12 Hour] Drug Allergy 03-05-20 20 Wellbutrin SR [facility] Work Phone: (3 sources) Naltrexone; Translations: [Naltrexone HCl 50 MG Oral Tablet] Drug Allergy 03-05-20 20 Naltrexone HCl [facility] Work Phone: (20 sources) Other [...] Active Continuous Glucose Sensor (Dexcom G6 Sensor) [facility] [place] ([place] sources) Start: 02-12-2025 Continuous Glucose Sensor (Dexcom G6 Sensor) [facility] [place] Indications: Gestational diabetes mellitus (GDM), antepartum, gestational diabetes method of control unspecified ([facility]) , Elevated glucose tolerance test , 28 weeks gestation of ([facility]) 1 each Every 10 (ten) days 3 each 3 02/12/2025 Active Start: 01-18-2025 Continuous Glu cose Sensor (Dexcom G6 Sensor) [facility] [place] Indications: Elevated glucose tolerance test , 28 weeks gestation of ([facility]) , Gestational diabetes mellitus (GDM), antepartum, gestational diabetes method of control unspecified ([facility]) 1 each Every 10 (ten) days 3 each 3 01/18/2025 Active Start: 12-13-2024 Continuous Glu cose Sensor (Dexcom G6 Sensor) [facility] [place] Indications: Elevated glucose tolerance test , 28 weeks gestation of ([facility]) , Gestational diabetes mellitus (GDM), antepartum, gestational diabetes method of control unspecified ([facility]) 1 each Every 10 (ten) days 3 each 3 12/13/2024 Active Continuous Glucose Transmitt er (Dexcom G6 transmitter) [facility] [place] (20 sources) Start: 12-19-2024 Continuous Glu cose Transmitter (Dexcom G6 transmitter) [facility] [place] Indications: Gestational diabetes mellitus (GDM), antepartum, gestational diabetes method of control unspecified ([facility]) Use as instructed 1 each [...] ibuprofen 800 MG tablet 01/06/2024 Active levonorgestrel 0.333135 mg/hr intrauterine system (17 sources) Progestin, Progestin-containin [...] supervision of normal first in first trimester ([facility]) Take 1 tablet by mouth Daily 30 [...] Facility US OB BPP W NON-STRESS on 02-16-2025 [place] [address] Ultrasound Report Signed Patient: ESTEFANIA CEDEÑO MR#: [id number] : 1995 Acct:[id number] Age/Sex: 29 / F ADM Date: 02/16/25 Loc: [facility] 250-[address]: Aditya Cervantes D.O. Ordering Physician: Aditya Cervantes D.O. Date of Service: 02/16/25 Procedure(s): US OB BPP w non-stress Accession Number(s): [id number] cc: Aditya Cervantes D.O.; Physician,Non-Staff M.Aminata The [place] [address] Patient Name: ESTEFANIA CEDEÑO MRN: [facility]:[id number] date: 1995 Sex: F Assigned Patient Location: [facility] Current Patient Location: [facility] Accession/Order Number: [id number] Exam Date: 02/16/2025 09:10 Report Date: 02/16/2025 09:59 At the request of: ADITYA CERVANTES DO Procedure: US OB BPP w non-stress BIOPHYSICAL PROFILE: CLINICAL INFORMATION: Hyperglycemia during COMPARISON: 02/12/2025 There is a single live intrauterine gestation in cephalic presentation. The reported gestational age is 37 weeks 3 days. The heart rate measures 131 beats per minute. FINDINGS: TONE: 1 or [...] greater than 2 cm [Y] 2/2 DEE: 18.3 cm . This is in upper normal range. Total score: 8/8 US/US OB BPP w non-stress IMPRESSION: NORMAL BIOPHYSICAL PROFILE Impression dictated by: Lindsey Bright M.D. 02/16/2025 9:59 AM Dictation Location: [place] [address] Electronically authenticated by: [id number] Y Date: 02/16/2025 09:59 Dictated By: Lindsey Bright M.D. Signed By: 02/16/25 1002 DD/ 0959 TD/TT: Organizational Effectiveness Director: [facility] Radiology, Radiologi MD raymond - 02/16/2025 [place] [address] Ultrasound Report Signed Patient: ESTEFANIA CEDEÑO MR#: [id number] : 1995 Acct:[id number] Age/Sex: 29 / F ADM Date: 02/16/25 Loc: [facility] 250-[address]: Aditya Cervantes D.O. Ordering Physician: Aditya Cervantes D.O. Date of Service: 02/16/25 Procedure(s): US OB BPP w non-stress Accession Number(s): [id number] cc: Aditya Cervantes D.O.; Physician,Non-Staff Roberto The [place] [id number] Patient Name: ESTEFANIA CEDEÑO MRN: [facility]:[id number] date: 1995 Sex: F Assigned Patient Location: [facility] Current Patient Location: [facility] Accession/Order Number: [id number] Exam Date: 02/16/2025 09:10 Report Date: 02/16/2025 09:59 At the request of: ADITYA CERVANTES DO Procedure: US OB BPP w non-stress BIOPHYSICAL PROFILE: CLINICAL INFORMATION: Hyperglycemia during COMPARISON: 02/12/2025 There is a single live intrauterine gestation in cephalic presentation. The reported gestational age is 37 weeks 3 days. The heart rate measures 131 beats per minute. FINDINGS: TONE: 1 or [...] greater than 2 cm [Y] 2/2 DEE: 18.3 cm . This is in upper normal range. Total score: 8/8 US/US OB BPP w non-stress IMPRESSION: NORMAL BIOPHYSICAL PROFILE Impression dictated by: Lindsey Bright M.D. 02/16/2025 9:59 AM Dictation Location: [employer] Electronically authenticated by: [id number] Y Date: 02/16/2025 09:59 Dictated By: Lindsey Bright M.D. Signed By: 02/16/25 1002 DD/ 0959 TD/TT: Organizational Effectiveness Director: [facility] Radiology Study observation (narrative) [facility] US OB BPP W NON-STRESS Ordered By: Radiologist Radiology on 02-16-2025 [facility] Work Phone: US OB BPP W NON-STRESS on 02-13-2025 [place] [address] Ultrasound Report Signed Patient: ESTEFANIA CEDEÑO MR#: [id number] : 1995 Acct:[id number] Age/Sex: 29 / F ADM Date: 02/13/25 Loc: US Attending Dr: Aditya Cervantes D.O. Ordering Physician: Aditya Cervantes D.O. Date of Service: 02/13/25 Procedure(s): US OB BPP w non-stress Accession Number(s): [id number] cc: Aditya Cervantes D.O.; Physician,Non-Staff Roberto The [place] [id number] Patient Name: ESTEFANIA CEDEÑO MRN: [facility]:[id number] date: 1995 Sex: F Assigned Patient Location: US Current Patient Location: Accession/Order Number: [id number] Exam Date: 02/13/2025 08:08 Report Date: 02/13/2025 [...] Bright M.D. 02/13/2025 10:03 AM Dictation Location: [place] [address] Electronically authenticated by: [id number] Y Date: 02/13/2025 10:03 Dictated By: Lindsey Bright M.D. Signed By: 02/13/25 1006 DD/ 1003 TD/TT: Organizational Effectiveness Director: [facility] Radiologestefania andrade MD - 02/13/2025 [place] [address] Ultrasound Report Signed Patient: ESTEFANIA CEDEÑO MR#: [id number] : 1995 Acct:[id number] Age/Sex: 29 / F ADM Date: 02/13/25 Loc: US Attending Dr: Aditya Cervantes D.O. Ordering Physician: Aditya Cervantes D.O. Date of Service: 02/13/25 Procedure(s): US OB BPP w non-stress Accession Number(s): [id number] cc: Aditya Cervantes D.O.; Physician,Non-Staff Roberto [place] [address] Patient Name: ESTEFANIA CEDEÑO MRN: [facility]:[id number] date: 1995 Sex: F Assigned Patient Location: US Current Patient Location: Accession/Order Number: [id number] Exam Date: 02/13/2025 08:08 Report Date: 02/13/2025 [...] Bright M.D. 02/13/2025 10:03 AM Dictation Location: [place] [address] Electronically authenticated by: [id number] Y Date: 02/13/2025 10:03 Dictated By: Lindsey Bright M.D. Signed By: 02/13/25 1006 DD/ 1003 TD/TT: Organizational Effectiveness Director: [facility] Radiology Study observation (narrative) [facility] US OB BPP W NON-STRESS Ordered By: Radiologist Radiology on 02-13-2025 [facility] Work Phone: Urinalysis macro (dipstick) panel (U)on 02-13-2025 Bilirubin, UA Negative Negative - 4(70) +++ mg/dL [facility] Blood, UA Negative Negative - 50 Chuy/mcL [facility] Clarity, UA Cloudy [facility] Color, UA Straw [facility] Glucose, UA Negative Negative - 1999(110) ++++ mg/dL [facility] Interpretation and review of laboratory results Normal [facility] Ketones, UA Negative Negative - 160(16) ++++ mg/dL [facility] Leukocytes, UA Negative Negative - 500+++ Sadi/mcL [facility] Nitrite, UA Negative Negative - Positive [facility] pH, UA 6.5 5 - 9 [facility] Protein, UA Negative Negative - 1999(20) ++++ mg/dL [facility] Spec Grav, UA 1.015 1 - 1.03 [facility] Urobilinogen, UA 1.0 0.2 - 12 mg/dL [facility] US OB BPP W NON-STRESS on 02-09-2025 [place] [address] Ultrasound Report Signed Patient: ESTEFANIA CEDEÑO MR#: [id number] : 1995 Acct:[id number] Age/Sex: 29 / F ADM Date: 02/09/25 Loc: US Attending Dr: Aditya Cervantes D.O. Ordering Physician: Aditya Cervantes D.O. Date of Service: 02/09/25 Procedure(s): US OB BPP w non-stress Accession Number(s): [id number] cc: Aditya Cervantes D.O.; Physician,Non-Staff M.DAsiya The [address] [address] Patient Name: ESTEFANIA CEDEÑO MRN: [id number] date: 1995 Sex: F Assigned Patient Location: [facility] Current Patient Location: Accession/Order Number: [id number] Exam Date: 02/09/2025 09:15 Report Date: 02/09/2025 10:39 At the request of: ADITYA CERVANTES DO Procedure: US OB BPP w non-stress BIOPHYSICAL PROFILE: CLINICAL INFORMATION: LGA COMPARISON: 02/02/2025 There is a single live intrauterine gestation in cephalic presentation. The reported gestational age is 36 weeks 3 days. The heart rate [id number] beats per minute. FINDINGS: TONE: 1 or [...] Bright M.D. 02/09/2025 10:39 AM Dictation Location: [place] [address] Electronically authenticated by: [id number] Y Date: 02/09/2025 10:39 Dictated By: Lindsey Bright M.D. Signed By: 02/09/25 1042 DD/ 1039 TD/TT: Organizational Effectiveness Director: [facility] Radiology, Radiologi MD raymond - 02/09/2025 [place] [address] Ultrasound Report Signed Patient: ESTEFANIA CEDEÑO MR#: [id number] : 1995 Acct:[id number] Age/Sex: 29 / F ADM Date: 02/09/25 Loc: US Attending Dr: Aditya Cervantes D.O. Ordering Physician: Aditya Cervantes D.O. Date of Service: 02/09/25 Procedure(s): US OB BPP w non-stress Accession Number(s): [id number] cc: Aditya Cervantes D.O.; Physician,Non-Staff [place] The [address] [address] Patient Name: ESTEFANIA CEDEÑO MRN: [id number]:[id number] date: 1995 Sex: F Assigned Patient Location: [facility] Current Patient Location: Accession/Order Number: [id number] Exam Date: 02/09/2025 09:15 Report Date: 02/09/2025 10:39 At the request of: ADITYA CERVANTES DO Procedure: US OB BPP w non-stress BIOPHYSICAL PROFILE: CLINICAL INFORMATION: LGA COMPARISON: 02/02/2025 There is a single live intrauterine gestation in cephalic presentation. The reported gestational age is 36 weeks 3 days. The heart rate [id number] beats per minute. FINDINGS: TONE: 1 or [...] Bright M.D. 02/09/2025 10:39 AM Dictation Location: [place] [address] Electronically authenticated by: [id number] Y Date: 02/09/2025 10:39 Dictated By: Lindsey Bright M.D. Signed By: 02/09/25 1042 DD/ 1039 TD/TT: Organizational Effectiveness Director: [facility] Radiology Study observation (narrative) [facility] US OB BPP W NON-STRESS Ordered By: Radiologist Radiology on 02-09-2025 [facility] Work Phone: US OB BPP W NON-STRESS on 02-02-[address] [address] Ultrasound Report Signed Patient: ESTEFANIA CEDEÑO MR#: [id number] : 1995 Acct:[id number] Age/Sex: 29 / F ADM Date: 02/02/25 Loc: US Attending Dr: Aditya Cervantes D.O. Ordering Physician: Aditya Cervantes D.O. Date of Service: 02/02/25 Procedure(s): US OB BPP w non-stress Accession Number(s): [id number] cc: Aditya Cervantes D.O.; Physician,Non-Staff Roberto [place] [address] Patient Name: ESTEFANIA CEDEÑO MRN: [id number] date: 1995 Sex: F Assigned Patient Location: [facility] Current Patient Location: Accession/Order Number: [id number] Exam Date: 02/02/2025 09:12 Report Date: 02/02/2025 [...] Bright M.D. 02/02/2025 10:17 AM Dictation Location: [facility] Electronically authenticated by: [id number] Y Date: 02/02/2025 10:17 Dictated By: Lindsey Bright M.D. Signed By: 02/02/25 1020 DD/ 1017 TD/TT: Organizational Effectiveness Director: [facility] Radiology, Radiologestefania andrade MD - 02/02/2025 [place] [address] Ultrasound Report Signed Patient: ESTEFANIA CEDEÑO MR#: [id number] : 1995 Acct:[id number] Age/Sex: 29 / F ADM Date: 02/02/25 Loc: US Attending Dr: Aditya Cervantes D.O. Ordering Physician: Aditya Cervantes D.O. Date of Service: 02/02/25 Procedure(s): US OB BPP w non-stress Accession Number(s): [id number] cc: Aditya Cervantes D.O.; Physician,Non-Staff Roberto The [place] [address] Patient Name: ESTEFANIA CEDEÑO MRN: [facility]:[id number] date: 1995 Sex: F Assigned Patient Location: [facility] Current Patient Location: Accession/Order Number: [id number] Exam Date: 02/02/2025 09:12 Report Date: 02/02/2025 [...] Bright M.D. 02/02/2025 10:17 AM Dictation Location: [place] [address] Electronically authenticated by: [id number] Y Date: 02/02/2025 10:17 Dictated By: Lindsey Bright M.D. Signed By: 02/02/25 1020 DD/ 1017 TD/TT: Organizational Effectiveness Director: [facility] Radiology Study observation (narrative) [facility] US OB BPP W NON-STRESS Ordered By: Radiologist Radiology on 02-02-2025 [facility] Work Phone: No Panel InformationOrdered By: Radiologist Radiology on 01-26-2025 [facility] Work Phone: No Panel Informationon 01-26 Radiology Study observation (narrative) [facility] US OB BPP W NON-STRESS on 01-26-2025 [place] [address] Ultrasound Report Signed Patient: ESTEFANIA CEDEÑO MR#: [id number] : 1995 Acct:[id number] Age/Sex: 29 / F ADM Date: 01/26/25 Loc: US Attending Dr: Aditya Cervantes D.O. Ordering Physician: Aditya Cervantes D.O. Date of Service: 01/26/25 Procedure(s): US OB BPP w non-stress Accession Number(s): [id number] cc: Aditya Cervantes D.O.; Physician,Non-Staff Roberto The [place] [id number] Patient Name: ESTEFANIA CEDEÑO MRN: [id number] date: 1995 Sex: F Assigned Patient Location: [facility] Current Patient Location: Accession/Order Number: [id number] Exam Date: 01/26/2025 09:08 Report Date: 01/26/2025 11:00 At the request of: ADITYA BILLY DO [...] Bright M.D. 01/26/2025 11:00 AM Dictation Location: [employer] Electronically authenticated by: [id number] Y Date: 01/26/2025 11:00 Dictated By: Lindsey Bright M.D. Signed By: 01/26/25 1103 DD/ 1100 TD/TT: Organizational Effectiveness Director: [facility] Radiology, Radiologi MD raymond - 01/26/2025 [place] [address] Ultrasound Report Signed Patient: ESTEFANIA CEDEÑO MR#: [id number] : 1995 Acct:[id number] Age/Sex: 29 / F ADM Date: 01/26/25 Loc: US Attending Dr: Aditya Cervantes D.O. Ordering Physician: Aditya Cervantes D.O. Date of Service: 01/26/25 Procedure(s): US OB BPP w non-stress Accession Number(s): [id number] cc: Aditya Cervantes D.O.; Physician,Non-Staff MSirena [place] [address] Patient Name: ESTEFANIA CEDEÑO MRN: [id number] date: 1995 Sex: F Assigned Patient Location: [facility] Current Patient Location: Accession/Order Number: [id number] Exam Date: 01/26/2025 09:08 Report Date: 01/26/2025 [...] Bright M.D. 01/26/2025 11:00 AM Dictation Location: [facility] Electronically authenticated by: [id number] Y Date: 01/26/2025 11:00 Dictated By: Lindsey Bright M.D. Signed By: 01/26/25 1103 DD/ 1100 TD/TT: Organizational Effectiveness Director: [facility] OB GROWTHon 01-26-2025 [place] [address] Ultrasound Report Signed Patient: ESTEFANIA CEDEÑO MR#: [id number] : 1995 Acct:[id number] Age/Sex: 29 / F ADM Date: 01/26/25 Loc: US Attending Dr: Aditya Cervantes D.O. Ordering Physician: Aditya Cervantes D.O. Date of Service: 01/26/25 Procedure(s): US OB growth Accession Number(s): [id number] cc: Aditya Cervantes D.O.; Physician,Non-Staff Roberto The [place] [id number] Patient Name: ESTEFANIA CEDEÑO MRN: [id number] date: 1995 Sex: F Assigned Patient Location: US Current Patient Location: Accession/Order Number: [id number] Exam Date: 01/26/2025 09:08 Report Date: 01/26/2025 [...] Bright M.D. 01/26/2025 11:00 AM Dictation Location: [place] [address] Electronically authenticated by: [id number] Y Date: 01/26/2025 11:00 Dictated By: Lindsey Bright M.D. Signed By: 01/26/25 1103 DD/ 1100 TD/TT: Organizational Effectiveness Director: [facility] Radiology, Radiologi MD raymond - 01/26/2025 [place] [address] Ultrasound Report Signed Patient: ESTEFANIA CEDEÑO MR#: [id number] : 1995 Acct:[id number] Age/Sex: 29 / F ADM Date: 01/26/25 Loc: US Attending Dr: Aditya Cervantes D.O. Ordering Physician: Aditya Cervantes D.O. Date of Service: 01/26/25 Procedure(s): US OB growth Accession Number(s): [id number] cc: Aditya Cervantes D.O.; Physician,Non-Staff Roberto [place] [id number] Patient Name: ESTEFANIA CEDEÑO MRN: [facility]:[id number] date: 1995 Sex: F Assigned Patient Location: Current Patient Location: Accession/Order Number: [id number] Exam Date: 01/26/2025 09:08 Report Date: 01/26/2025 [...] Bright M.D. 01/26/2025 11:00 AM Dictation Location: [place] [address] Electronically authenticated by: [id number] Y Date: 01/26/2025 11:00 Dictated By: Lindsey Bright M.D. Signed By: 01/26/25 1103 DD/ 1100 TD/TT: Organizational Effectiveness Director: [facility] US OB BPP W NON-STRESS on 01-19-2025 [place] [address] Ultrasound Report Signed Patient: ESTEFANIA CEDEÑO MR#: [id number] : 1995 Acct:[id number] Age/Sex: 29 / F ADM Date: 01/19/25 Loc: US Attending Dr: Aditya Cervantes D.O. Ordering Physician: Aditya Cervantes D.O. Date of Service: 01/19/25 Procedure(s): US OB BPP w non-stress Accession Number(s): [id number] cc: Aditya Cervantes D.O.; Physician,Non-Staff [place] [address] Patient Name: ESTEFANIA CEDEÑO MRN: [id number] date: 1995 Sex: F Assigned Patient Location: [facility] Current Patient Location: Accession/Order Number: [id number] Exam Date: 01/19/2025 09:10 Report Date: 01/19/2025 [...] Saez M.D. 01/19/2025 2:26 PM Dictation Location: [employer] Electronically authenticated by: [id number] Y Date: 01/19/2025 14:26 Dictated By: Carroll Saez D.O. Signed By: 01/19/25 1429 DD/ 25 TD/TT: Organizational Effectiveness Director: [facility] Radiology, Radiologestefania andrade MD - 01/19/2025 [place] [address] Ultrasound Report Signed Patient: ESTEFANIA CEDEÑO MR#: [id number] : 1995 Acct:[id number] Age/Sex: 29 / F ADM Date: 01/19/25 Loc: US Attending Dr: Aditya Cervantes D.O. Ordering Physician: Aditya Cervantes D.O. Date of Service: 01/19/25 Procedure(s): US OB BPP w non-stress Accession Number(s): [id number] cc: Aditya Cervantes D.O.; Physician,Non-Staff Roberto [facility] [place] [address] Patient Name: ESTEFANIA CEDEÑO MRN: [facility]:[id number] date: 1995 Sex: F Assigned Patient Location: [facility] Current Patient Location: Accession/Order Number: [id number] Exam Date: 01/19/2025 09:10 Report Date: 01/19/2025 [...] Saez M.D. 01/19/2025 2:26 PM Dictation Location: [employer] Electronically authenticated by: [id number] Y Date: 01/19/2025 14:26 Dictated By: Carroll Saez D.O. Signed By: 01/19/25 142 DD/ 25 TD/TT: Organizational Effectiveness Director: [facility] Radiology Study observation (narrative) [facility] US OB BPP W NON-STRESS Ordered By: Radiologist Radiology on 01-19-2025 [facility] Work Phone: Urinalysis macro (dipstick) panel (U)on 01-09-2025 Bilirubin, UA Negative Negative - 4(70) +++ mg/dL [facility] Blood, UA Negative Negative - 50 Chuy/mcL [facility] Clarity, UA Clear [facility] Color, UA Yellow [facility] Glucose, UA Negative Negative - 2000(110) ++++ mg/dL [facility] Interpretation and review of laboratory results Normal [facility] Ketones, UA Negative Negative - 160(16) ++++ mg/dL [facility] Leukocytes, UA Negative Negative - 500+++ Sadi/mcL [facility] Nitrite, UA Negative Negative - Positive [facility] pH, UA 6.5 5 - 9 [facility] Protein, UA Negative Negative - 2000(20) ++++ mg/dL [facility] Spec Grav, UA 1.015 1 - 1.03 [facility] Urobilinogen, UA 1.0 0.2 - 12 mg/dL [facility] US OB FOLLOW UP TRANSABDOMIN AL APPROACHon [...] II, MD, PHD at 28-Dec-2024 08:33:38 AM [facility] Normal Not Available Comment on above: Order Comment: US OB SCAN FOR GROWTH Estimated Date of Delivery: 03/06/25 Gestational Age as of 12/13/2024: 28w1d Urinalysis macro (dipstick) panel (U)on 12-27-2024 Bilirubin, UA Negative Negative - 4(70) +++ mg/dL [facility] Blood, UA Negative Negative - 50 Chuy/mcL [facility] Clarity, UA Clear [facility] Color, UA Yellow [facility] Glucose, UA Positive Negative - 1999(110) ++++ mg/dL [facility] Interpretation and review of laboratory results Abnormal [facility] Ketones, UA Negative Negative - 160(16) ++++ mg/dL [facility] Leukocytes, UA Negative Negative - 500+++ Sadi/mcL [facility] Nitrite, UA Negative Negative - Positive [facility] pH, UA 6 5 - 9 [facility] Healthcare Protein, UA Positive Negative - 2000(20) ++++ mg/dL [facility] Spec Grav, UA 1.02 1 - 1.03 [facility] Urobilinogen, UA 1.0 0.2 - 12 mg/dL [facility] Urinalysis macro (dipstick) panel (U)on 12-13-2024 Bilirubin, UA Negative Negative - 4(70) +++ mg/dL [facility] Blood, UA Negative Negative - 50 Chuy/mcL [facility] Clarity, UA Clear [facility] Color, UA Yellow [facility] Glucose, UA Negative Negative - 2000(110) ++++ mg/dL [facility] Interpretation and review of laboratory results Normal [facility] Ketones, UA Negative Negative - 160(16) ++++ mg/dL [facility] Leukocytes, UA Negative Negative - 500+++ Sadi/mcL [facility] Nitrite, UA Negative Negative - Positive [facility] pH, UA 6 5 - 9 [facility] Protein, UA Negative Negative - 2000(20) ++++ mg/dL [facility] Spec Grav, UA 1.015 1 - 1.03 [facility] Urobilinogen, UA 1.0 0.2 - 12 mg/dL [facility] GLUCOSE TOLERANCE 3 HOURon 0 12-12-2024 GLUCOSE TOLERANCE 3 HOUR High mg/dL [facility] Comment on above: GLU FAST 85 (<95) Co l: 12/12/24 1118 GLU 1HR 198H (<180) Col: 12/12/24 1220 GLU 2HR 171H (<155) Col: 12/12/24 1320 GLU 3HR 74 (<140) Col: 12/12/24 1422 Interpretation and review of laboratory results Abnormal [facility] ECG 12-LEADon 12-07-2024 [place] [address] Electrocardiograph Report Signed Patient: ESTEFANIA CEDEÑO MR#: [id number] : 1995 Acct:[id number] Age/Sex: 29 / F ADM Date: 12/05/24 Loc: CR Attending Dr: Latasha Padgett Ordering Physician: Latasha Padgett Date of Service: 12/05/24 Procedure(s): ECG 12 lead Accession Number(s): [id number] cc: [facility] Test Date: 2024-12-05 Pat Name: ESTEFANIA CEDEÑO Department: Room: - Gender: Female 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 Signed By: 12/07/2489912/07/24899 DD/ 6 TD/TT: Organizational Effectiveness Director: [facility] ECG 12-LEADOrdered By: Radio logist Radiology on 12-07-2024 [facility] Press Work Phone: ALL CBC WITH AUTO DIFFon BASOPHILS ABSOLUTE AUTO 0 [facility] Basophils/100 WBC (Bld) 0.2 % 0.2 - 2.0 % [facility] Eosinophils/100 WBC (Bld) 0.6 % Low 0.9 - 7.0 % [facility] Erythrocyte distribution width (RBC) [Ratio] 13.7 % 11.0 - 15.0 % [facility] Hematocrit (Bld) [Volume fraction] 34.3 % Low 36.0 - 48.0 % [facility] Hemoglobin (Bld) [Mass/Vol] 11.5 g/dL Low 12.0 - 16.0 g/dL [facility] IMMATURE GRANULOCYTES ABS AUTO 0.08 High [facility] Immature granulocytes/100 WBC (Bld) 0.7 % High 0.0 - 0.5 % [facility] Interpretation and review of laboratory results Abnormal [facility] LYMPHOCYTES ABSOLUTE AUTO 2.1 [facility] Lymphocytes/100 WBC (Bld) 18.9 % Low 20.5 - 60.0 % [facility] MCH (RBC) [Entitic mass] 27.8 pg 26.7 - 34.0 pg [facility] MCHC (RBC) [Mass/Vol] 33.5 g/dL 29.9 - 35.2 g/dL [facility] MCV (RBC) [Entitic vol] 82.9 fL 81.0 - 99.0 fL [facility] MONOCYTES ABSOLUTE AUTO 0.5 [facility] Monocytes/100 WBC (Bld) 4 % 1.7 - 12.0 % [facility] NEUTROPHILS ABSOLUTE AUTO 8.6 High [facility] Neutrophils/100 WBC (Bld) 75.6 % High 43.0 - 75.0 % [facility] Platelet mean volume (Bld) [Entitic vol] 11.1 fL 9.5 - 13.5 fL [facility] TBH EO # 0.1 [facility] PLT 140 Low [facility] RBC 4.14 Low [facility] WBC 11.3 High [facility] ECG 12-LEADon 12-05-2024 Radiology Study observation (narrative) [facility] Urinalysis macro (dipstick) panel (U)on 11-22-2024 Bilirubin, UA Negative Negative - 4(70) +++ mg/dL [facility] Blood, UA Negative Negative - 50 Chuy/mcL [facility] Clarity, UA Clear [facility] Color, UA Yellow [facility] Glucose, UA Negative Negative - 2000(110) ++++ mg/dL [facility] Interpretation and review of laboratory results Abnormal [facility] Ketones, UA Positive Negative - 160(16) ++++ mg/dL [facility] Comment on above: trace Leukocytes, UA Negative Negative - 500+++ Sadi/mcL [facility] Nitrite, UA Negative Negative - Positive [facility] pH, UA 6.5 5 - 9 [facility] Protein, UA Negative Negative - 1999(20) ++++ mg/dL [facility] Spec Grav, UA 1.025 1 - 1.03 [facility] Urobilinogen, UA 0.2 0.2 - 12 mg/dL [facility] MHPT AFP, MATERNALon 025 MH[facility] SEE NOTE [facility] Comment on above: Results for Estimate d Due Date: 03 06 25 MHPT FAMILY HISTORY No [facility] 20 wks, 0 days [facility] MHPT INS REQ MATERN DIAB No [facility] INTER[facility] Screen Neg [facility] Comment on above: (NOTE) INTERPRETATION: SCREEN NEGATIVE for open spina bifida Neural Tube Defects (NTD) Negative Pre-Test Post-Test Cutoff Neural Tube Defects Risks 1:1030 < 1:71223 1:250 Comments: The risk of an open neural tube defect is less than the screening cut-off. This test was developed and its performance characteristics determined by [facility]. It has not been cleared or approved by the US Food and Drug Administration. This test was performed in a CLIA certified laboratory and is intended for clinical purposes. MHPT [age] [facility] MHPT MATERNAL RACE Nonblack [facility] MHPT MATERNAL WEIGHT 234.0 lbs. [facility] M[facility] FOR AFP 0.82 [facility] MHPT NUMBER OF FETUSES Sanchez NO [facility] MHPT PATIENT'S AFP 36 ng/mL [facility] MHPT SMOKING Unknown [facility] SPEC[facility]EN See Note [facility] Comment on above: (NOTE) Initial sample Performed By: [facility] [address] [place] [id number] [employer] Fe[employer]: Pranay Rousseau MD, PhD CLIA Number: [id number] Original Ordering Provider: ADITYA CRAVEN CLINISYCAYDEN [facility] Urinalysis macro (dipstick) panel (U)on 10-25-2024 Bilirubin, UA Negative Negative - 4(70) +++ mg/dL [facility] Blood, UA Negative Negative - 50 Chuy/mcL [facility] Clarity, UA Clear [facility] Color, UA Yellow [facility] Glucose, UA Negative Negative - 1999(110) ++++ mg/dL [facility] Interpretation and review of laboratory results Normal [facility] Ketones, UA Negative Negative - 160(16) ++++ mg/dL [facility] Leukocytes, UA Negative Negative - 500+++ Sadi/mcL [facility] Nitrite, UA Negative Negative - Positive [facility] pH, UA 5.5 5 - 9 [facility] Protein, UA Negative Negative - 2000(20) ++++ mg/dL [facility] Spec Grav, UA 1.03 1 - 1.03 [facility] Urobilinogen, UA 0.2 0.2 - 12 mg/dL [facility] AFP, Maternalon 10-20-2024 Determined by Ultrasound [facility] Comment on above: Performed By: #### A AFPM #### [facility] [address], [place] [id number] [employer] Supervisor: Dallas Xiong MD Due Date SEE NOTE [facility] Comment on above: Result Comment: Resu lts for Estimated Due Date: 03 06 25 Performed By: #### A AFPM #### [facility] [address], [place] [id number] [employer] Supervisor: Dallas Xiong MD Family History No Normal [facility] Comment on above: Performed By: #### A AFPM #### [facility] [address], [place] [id number] [employer] Supervisor: Dallas Xiong MD Gestat Age (exact) 20 wks, 0 days Normal [facility] Comment on above: Performed By: #### A AFPM #### [facility] [address], [place] [id number] [employer] Supervisor: Dallas Xiong MD Ins Req Matern Diab No [facility] Comment on above: Performed By: #### A AFPM #### [facility] [address], [place] [id number] [employer] Supervisor: Dallas Xiong MD Interpretation Screen Neg Normal [facility] Comment on above: Result Comment: (NOT E) INTERPRETATION: SCREEN NEGATIVE for open spina bifida Neural Tube Defects (NTD) Negative Pre-Test Post-Test Cutoff Neural Tube Defects Risks 1:1030 < 1:88174 1:250 Comments: The risk of an open neural tube defect is less than the screening cut-off. This test was developed and its performance characteristics determined by [facility]. It has not been cleared or approved by the US Food and Drug Administration. This test was performed in a CLIA certified laboratory and is intended for clinical purposes. Performed By: #### A AFPM #### [facility] [address] [place] [address] [employer] Supervisor: Dallas Xiong MD [age] [facility] Comment on above: Performed By: #### A AFPM #### [facility] [address], [place] [id number] [employer] Supervisor: Dallas Xiong MD Maternal Race Nonblack [facility] Comment on above: Performed By: #### A AFPM #### [facility] [address], [place] [id number] [employer] Supervisor: Dallas Xiong MD Maternal Weight 234.0 lbs. [facility] Comment on above: Performed By: #### A AFPM #### [facility] [address], [place] [id number] [employer] Supervisor: Dallas Xiong MD MoM for AFP 0.82 [facility] Comment on above: Performed By: #### A AFPM #### [facility] [address], [place] [id number] [employer] Supervisor: Dallas Xiong MD Number of Fetuses Sanchez [facility] Comment on above: Performed By: #### A AFPM #### [facility] [address], [place] [id number] [employer] Supervisor: Dallas Xiong MD Patient's AFP 36 ng/mL [facility] Comment on above: Performed By: #### A AFPM #### [facility] [address], [place] [id number] [employer] Supervisor: Dallas Xiong MD Smoking Unknown [facility] Comment on above: Performed By: #### A AFPM #### [facility] [address], [place] [id number] [employer] Supervisor: Dallas Xiong MD Specimen See Note [facility] Comment on above: Result Comment: (NOT E) Initial sample Performed By: [facility] [address] [place] [address] [employer] Fe[employer]: Pranay Rousseau MD, PhD CLIA Number: [id number] Performed By: #### A AFPM #### [facility] [address], [place] [id number] [employer] Supervisor: Dallas Xiong MD IGP,APTIMA HPV,AGE GDLNon AGE GDLN ACOG TESTING Note . [facility] Comment on above: TESTS RESULT FLAG UN ITS REF RANGE LAB Clinician Provided Cytology Information Other.............. No. of containers..01 ThinPrep Vial Age Algo ACOG Geetha... FLAG LEGEND: L-Low Normal,H-High Normal,LL-Alert Low,HH-Alert High <-Panic Low,>-Panic High,A-Abnormal,AA-Critical Abnormal Performed at: 01 =G [facility] [place] [address] [place] [address] Lynda Almaguer MD, IGP, RFX APTIMA HPV ASCU Note . [facility] Comment on above: TESTS RESULT FLAG UN ITS REF RANGE LAB DIAGNOSIS: 02 NEGATIVE FOR INTRAEPITHELIAL LESION OR MALIGNANCY. FUNGAL ORGANISMS MORPHOLOGICALLY CONSISTENT WITH MARTHA SPECIES ARE PRESENT. CELLULAR CHANGES ASSOCIATED WITH INFLAMMATION ARE PRESENT. Specimen adequacy: 02 Satisfactory for evaluation. Endocervical and/or squamous metaplastic cells (endocervical component) are present. Performed by: Juliana Correia, Grant Coordinator . 02 Note: Note 02 The Pap [...] High,A-Abnormal,AA-Critical Abnormal Performed at: 02 WB [facility] [place] [address] [place] [address] Lynda Almaguer MD, Performed at: =G - [facility] [address] [id number] [employer] Supervisor: Lnyda Almaguer MD, Phone: [phone] Performed at: - [facility] [id number] [employer] Supervisor: Lynda Almaguer MD, Phone: [phone] BRUSH-SPATULA BRUSH-ALONE 2 [facility] US OB 14+ WEEKS ANATOMY SCAN on [...] II, MD, PHD at 25-Oct-2024 11:18:35 PM [facility] Normal Not Available Comment on above: Order Comment: US OB ANATOMY SINGLE W US OB CERVICAL LENGTH Estimated Date of Delivery: 03/06/25 Gestational Age as of 09/26/2024: 17w0d Urinalysis macro (dipstick) panel (U)on 09-26-2024 Bilirubin, UA Negative Negative - 4(70) +++ mg/dL [facility] Blood, UA Negative Negative - 50 Chuy/mcL [facility] Healthcare Clarity, UA Clear [facility] Color, UA Yellow [facility] Glucose, UA Negative Negative - 1999(110) ++++ mg/dL [facility] Interpretation and review of laboratory results Normal [facility] Ketones, UA Positive Negative - 160(16) ++++ mg/dL [facility] Leukocytes, UA Negative Negative - 500+++ Sadi/mcL [facility] Nitrite, UA Negative Negative - Positive [facility] pH, UA 7 5 - 9 [facility] Protein, UA Negative Negative - 1999(20) ++++ mg/dL [facility] Spec Grav, UA 1.02 1 - 1.03 [facility] Urobilinogen, UA 0.2 0.2 - 12 mg/dL [facility] Urinalysis macro (dipstick) panel (U)on 08-29-2024 Bilirubin, UA Negative Negative - 4(70) +++ mg/dL [facility] Blood, UA Positive Negative - 50 Chuy/mcL [facility] Comment on above: trace-intact Clarity, UA Clear [facility] Color, UA Yellow [facility] Glucose, UA Negative Negative - 1999(110) ++++ mg/dL [facility] Interpretation and review of laboratory results Abnormal [facility] Ketones, UA Negative Negative - 160(16) ++++ mg/dL [facility] Leukocytes, UA Negative Negative - 500+++ Sadi/mcL [facility] Nitrite, UA Negative Negative - Positive [facility] pH, UA 7 5 - 9 [facility] Protein, UA Negative Negative - 1999(20) ++++ mg/dL [facility] Spec Grav, UA 1.025 1 - 1.03 [facility] Urobilinogen, UA 0.2 0.2 - 12 mg/dL [facility] US OB TRANSVAGINALon 025 US OB TRANSVAGINAL [...] II, MD, PHD at 05-Aug-2024 09:13:53 AM [facility] Normal Not Available Comment on above: Order Comment: US OB TRANSVAGINAL No LMP recorded. TBH PREG QUANT HCGon 025 HCG QUANTITATIVE 45563 mIU/mL [facility] Comment on above: 5-50 0.2-1 WEEK 50-500 1-2 WEEKS 100-5,000 2-3 WEEKS 500-10,000 3-4 WEEKS 1,000-50,000 4-5 WEEKS 10,000-100,000 5-6 WEEKS 15,000-200,000 6-8 WEEKS 10,000-100,000 2-3 MONTHS [facility]H PREG QUANT HCGon 025 HCG QUANTITATIVE 96486 mIU/mL [facility] Comment on above: 5-50 0.2-1 WEEK 50-500 1-2 WEEKS 100-5,000 2-3 WEEKS 500-10,000 3-4 WEEKS 1,000-50,000 4-5 WEEKS 10,000-100,000 5-6 WEEKS 15,000-200,000 6-8 WEEKS 10,000-100,000 2-3 MONTHS [facility] Urinalysis macro (dipstick) panel (U)on 07-15-2023 Bilirubin, UA Negative Negative - 4(70) +++ mg/dL [facility] Blood, UA Negative Negative - 50 Chuy/mcL [facility] Clarity, UA Clear [facility] Color, UA Yellow [facility] Glucose, UA Negative Negative - 1999(110) ++++ mg/dL [facility] Interpretation and review of laboratory results Normal [facility] Ketones, UA Positive Negative - 160(16) ++++ mg/dL [facility] Leukocytes, UA Negative Negative - 500+++ Sadi/mcL [facility] Nitrite, UA Negative Negative - Positive [facility] pH, UA 6.5 5 - 9 [facility] Protein, UA Negative Negative - 1999(20) ++++ mg/dL [facility] Spec Grav, UA 1.025 1 - 1.03 [facility] Urobilinogen, UA 0.2 0.2 - 12 mg/dL [facility] C-Reactive Proteinon 022 CRP [Mass/Vol] mg/L 0 - 5 mg/L [facility] CBC with Auto Differentialon 12-16-2021 Absolute Eos # 0.09 [facility] Absolute Immature Granulocyte 0.04 [facility] Absolute Lymph # 2.98 [facility] Absolute [place] # 0.51 [facility] Basophils (Bld) [#/Vol] 0.04 10*3/uL [facility] Basophils/100 WBC (Bld) 0 % 0 - 2 % [facility] Eosinophils/100 WBC (Bld) 1 % 1 - 4 % [facility] Hematocrit (Bld) [Volume fraction] 39.6 % 36.3 - 47.1 % [facility] Hemoglobin (Bld) [Mass/Vol] 13.1 g/dL 11.9 - 15.1 g/dL [facility] Immature granulocytes/100 WBC (Bld) 0 % 0 [facility] Lymphocytes/100 WBC (Bld) 33 % 24 - 43 % [facility] MCH (RBC) [Entitic mass] 28.2 pg 25.2 - 33.5 pg [facility] MCHC (RBC) [Mass/Vol] 33.1 g/dL 28.4 - 34.8 g/dL [facility] MCV (RBC) [Entitic vol] 85.3 fL 82.6 - 102.9 fL [facility] Monocytes/100 WBC (Bld) 6 % 3 - 12 % [facility] NRBC Automated 0.0 0.0 per 100 WBC [facility] Platelet distribution width (Bld) [Ratio] 12.0 % 11.8 - 14.4 % [facility] Platelet mean volume (Bld) [Entitic vol] 11.1 fL 8.1 - 13.5 fL [facility] Platelets (Bld) [#/Vol] 214 10*3/uL [facility] RBC (Bld) [#/Vol] 4.64 10*6/uL 3.95 - 5.1 1 m/uL [facility] Segmented neutrophils/100 WBC (Bld) 60 % 36 - 65 % [facility] Segs Absolute 5.49 [facility] WBC (Bld) [#/Vol] 9.2 10*3/uL [facility] Rheumatoid Factoron 12-17-19 22 Rheumatoid Factor <10 NINF [facility] Sedimentation Rateon 022 Sed Rate 5 [facility] Uric Acidon 12-16-2021 Urate [Mass/Vol] 4.2 mg/dL 2.4 - 5.7 mg/dL [facility] Basic Metabolic Panel w/ Ref yossi to MGOrdered By: Donny Hatfield on 10-15-2020 Anion gap [Moles/Vol] 13 mmol/L 9 - 17 mmol/L [employer] Phone: Calcium [Mass/Vol] 9.6 mg/dL 8.6 - 10. 4 mg/dL [employer] Phone: Chloride [Moles/Vol] 105 mmol/L 98 - 10 7 mmol/L [employer] Phone: CO2 [Moles/Vol] 22 mmol/L 20 - 31 mmol/L [employer] Phone: Creatinine [Mass/Vol] 0.62 mg/dL 0.50 - 0.90 mg/dL [employer] Phone: GFR >60 >60 mL/min [facility] Phone: GFR Non- >60 >60 mL/min [employer] Phone: Glucose [Mass/Vol] 110 mg/dL High 70 - 99 mg/dL [facility] Phone: Interpretation and review of laboratory results Abnormal [employer] Phone: Potassium [Moles/Vol] 3.5 mmol/L Low 3.7 - 5.3 mmol/L [employer] Phone: Sodium [Moles/Vol] 140 mmol/L 135 - 144 mmol/L [facility] Phone: Urea nitrogen (BldV) [Mass/Vol] 12 mg/dL 6 - 20 mg/dL [employer] Phone: Urea nitrogen/Creatinine (Bld) [Mass ratio] 19 [employer] Phone: [employer] Phone: CBC Auto DifferentialOrdered By: Donny Hatfield on 10-15-2020 Absolute Eos # 0.19 [employer] Work Phone: Absolute Immature Granulocyte 0.06 [employer] Phone: Absolute Lymph # 2.[address] [facility] [facility] Work Phone: Absolute [place] # 0.75 [facility] Work Phone: Basophils (Bld) [#/Vol] 0.04 10*3/uL [employer] Phone: Basophils/100 WBC (Bld) 0 % 0 - 2 % [employer] Phone: Differential Type NOT REPORTED [employer] Phone: Eosinophils/100 WBC (Bld) 1 % 1 - 4 % [employer] Phone: Hematocrit (Bld) [Volume fraction] 42.1 % 36.3 - 47.1 % [employer] Phone: Hemoglobin.gastrointes tinal spec 1 Ql (Stl) 14.0 g/dL 11.9 - 15.1 g/dL [employer] Phone: Immature granulocytes/100 WBC (Bld) 0 % 0 [employer] Phone: Interpretation and review of laboratory results Abnormal [employer] Phone: Lymphocytes/100 WBC (Bld) 14 % Low 24 - 43 % [employer] Phone: MCH (RBC) [Entitic mass] 28.1 pg 25.2 - 33.5 pg [employer] Phone: MCHC (RBC) [Mass/Vol] 33.3 g/dL 28.4 - 34.8 g/dL [employer] Phone: MCV (RBC) [Entitic vol] 84.4 fL 82.6 - 102.9 fL [employer] Phone: Monocytes/100 WBC (Bld) 4 % 3 - 12 % [employer] Phone: NRBC Automated 0.0 0.0 per 100 WBC [employer] Phone: Platelet distribution width (Bld) [Ratio] 11.9 % 11.8 - 14.4 % [employer] Phone: Platelet Estimate NOT REPORTED [employer] Phone: Platelet mean volume (Bld) [Entitic vol] 10.7 fL 8.1 - 13.5 fL [employer] Phone: Platelets (Bld) [#/Vol] 220 10*3/uL [employer] Phone: RBC (Bld) [#/Vol] 4.99 10*6/uL 3.95 - 5.1 1 m/uL [employer] Phone: RBC (Bld) [#/Vol] NOT REPORTED [employer] Phone: Segmented neutrophils/100 WBC (Bld) 81 % High 36 - 65 % [employer] Phone: Segs Absolute 14.20 [employer] Work Phone: WBC (Bld) [#/Vol] 17.7 10*3/uL High [facility] Phone: WBC (Bld) [#/Vol] NOT REPORTED [facility] Phone: [employer] Phone: CT ABDOMEN PELVIS W IV CONTR AST Additional Contrast? NoneOrdered By: Donny Hatfield on 10-15-2020 1. Marked hepatic steatosis. 2. Hepatomegaly. 3. Mild colonic diverticulosis without evidence of diverticulitis. [employer] Phone: EXAMINATION: CT OF T HE ABDOMEN [...] COMPARISON: None. HISTORY: ORDERING SYSTEM PROVIDED HISTORY: [facility] pain TECHNOLOGIST PROVIDED HISTORY: [facility] pain Decision Support Exception - [...] subcutaneous soft tissues are unremarkable in appearance. [employer] Work Phone: Jean Marie, [facility] Incoming Radiant Results From [employer] - 10/15/2020 1:48 AM EDT EXAMINATION: CT [...] COMPARISON: None. HISTORY: ORDERING SYSTEM PROVIDED HISTORY: [facility] pain TECHNOLOGIST PROVIDED HISTORY: abd [...] Mild colonic diverticulosis without evidence of diverticulitis. [employer] Phone: [employer] Phone: HCG Qualitative, SerumOrdere d By: [employer] on 10-15-2020 hCG Qual Negative NEGATIVE [employer] Phone: Comment on above: Specimens with hCG l evels near the threshold of the test (25 mIU/mL) may give a negative or indeterminate result. In such cases, another test should be performed with a new specimen in 48-72 hours. If early is suspected clinically in this setting, correlation with quantitative serum b-hCG level is suggested. [employer] has confirmed the use of plasma for this test. This has not been cleared or approved by the U.S. Food and Drug Administration. The FDA has determined that such clearance is not necessary. [facility] Phone: Hepatic Function PanelOrdere d By: [employer] on 10-15-2020 Albumin [Mass/Vol] 4.6 g/dL 3.5 - 5.2 g/dL [facility] Phone: Albumin/Globulin [Mass ratio] 1.6 {ratio} [facility] Phone: ALP (Bld) [Catalytic activity/Vol] 59 U/L 35 - 104 U/L [facility] Phone: ALT [Catalytic activity/Vol] 38 U/L High 5 - 33 U/L [facility] Phone: AST [Catalytic activity/Vol] 24 U/L <32 [facility] Phone: Bilirubin [Mass/Vol] 0.48 mg/dL 0.3 - 1 .2 mg/dL [facility] Phone: Bilirubin, Indirect CANNOT BE CALCULATED 0.00 - 1.00 mg/dL [facility] Phone: Bilirubin.indirect [Mass/Vol] mg/dL <0.31 mg/dL [facility] Phone: Free PSA/Total PSA [Mass fraction] 7.4 g/dL 6.4 - 8.3 g/dL [facility] Phone: Globulin NOT REPORTED 1.5 - 3.8 g/dL [facility] Phone: Interpretation and review of laboratory results Abnormal [facility] Phone: Laboratory - Chemistry and C hemistry - challengeOrdered By: Donny Hatfield on 10-15-2020 GFR/1.73 sq M.predicted MDRD (S/P/Bld) [Vol rate/Area] [facility] Phone: Comment on above: Average GFR for 20-2 9 years old: 116 mL/min/1.73sq m Chronic Kidney Disease: <60 mL/min/1.73sq m Kidney failure: <15 mL/min/1.73sq m eGFR calculated using average adult body mass. Additional eGFR calculator available at: http://www.TruLeaf/multiple_crcl_2012.htm Stage 1: Some kidney damage normal GFR Stage 2: Mild kidney damage GFR 60-89 Stage 3: Moderate kidney damage GFR 30-59 Stage 4: Severe kidney damage GFR 15-29 Stage 5: Severe kidney damage GFR <15 ESRD - chronic treatment by dialysis or transplant Lactic Acid, PlasmaOrdered B y: Donny Hatfield on 10-15-2020 Lactate [Moles/Vol] 1.1 mmol/L 0.5 - 2. 2 mmol/L [employer] Work Phone: Lactic Acid, Whole Blood NOT REPORTED 0.7 - 2.1 mmol/L [facility] Work Phone: [facility] Work Phone: LipaseOrdered By: Cuco on 10-15-2020 Lipase [Catalytic activity/Vol] 27 U/L 13 - 60 U/L [facility] Phone: MagnesiumOrdered By: Donny Hatfield on 10-15-2020 Magnesium [Mass/Vol] 1.8 mg/dL 1.6 - 2 .6 mg/dL [facility] Work Phone: [facility] Work Phone: Microscopic UrinalysisOrdere d By: Donny Hatfield on 10-15-2020 - [employer] Work Phone: Amorphous, UA NOT REPORTED None [facility] Work Phone: Bacteria, UA 1+ Abnormal None [facility] Work Phone: Casts UA NOT REPORTED /LPF [facility] Work Phone: Crystals, UA NOT REPORTED None /HPF [facility] Work Phone: Epithelial Cells UA 2 TO 5 [facility] Work Phone: Interpretation and review of laboratory results Abnormal [facility] [employer] Work Phone: Mucus, UA 1+ Abnormal None [facility] Work Phone: Other Observations UA NOT REPORTED NOT REQ. M [facility] Work Phone: RBC, UA 2 TO 5 [facility] [employer] Work Phone: Renal Epithelial, UA NOT REPORTED 0 /HPF [facility] Work Phone: Trichomonas, UA NOT REPORTED None [facility] Work Phone: WBC, UA 0 TO 2 [facility] [employer] Work Phone: Yeast, UA NOT REPORTED None [facility] Work Phone: [facility] [employer] Work Phone: No Panel InformationOrdered By: Donny Hatfield on 10-15-2020 [facility] [employer] Work Phone: Urinalysis Reflex to Culture Ordered By: Donny Hatfield on 10-15-2020 Bilirubin Urine Negative NEGATIVE [facility] Work Phone: Color, UA YELLOW YELLOW [facility] [employer] Work Phone: Glucose, Ur Negative NEGATIVE [facility] Work Phone: Interpretation and review of laboratory results Abnormal [facility] [employer] Work Phone: Ketones Ql (U) Negative NEGATIVE [facility] Work Phone: Leukocyte esterase Test strip Ql (U) Negative NEGATIVE [facility] [employer] Work Phone: Nitrite, Urine Negative NEGATIVE [facility] Work Phone: pH, UA 5.0 [facility] [employer] Work Phone: Protein, UA Negative NEGATIVE [facility] Work Phone: Specific [place], UA 1.010 [facility] [employer] Work Phone: Turbidity UA CLEAR CLEAR [facility] [employer] Work Phone: Urinalysis Comments NOT REPORTED [facility] [employer] Work Phone: Urine Hgb 2+ Abnormal NEGATIVE [facility] Work Phone: Urobilinogen, Urine Normal Normal [facility] [employer] Work Phone: [facility] [employer] Work Phone: Comp Metabolic Profon 2020 (cont.) Normal [facility] Comment on above: Result Comment: Aver age GFR for 20-29 years old: 116 mL/min/1.73sq m Chronic Kidney Disease: <60 mL/min/1.73sq m Kidney failure: <15 mL/min/1.73sq m eGFR calculated using average adult body mass. Additional eGFR calculator available at: http://www.TruLeaf/multiple_crcl_2011.htm Performed By: #### L IPRF, CDP, CP, TSHX #### [facility] [address] [place] [phone] [employer] Supervisor: Chato Aguirre MD Albumin [Mass/Vol] 4.3 g/dL Normal 3.5-5.2 [facility] Comment on above: Performed By: #### L IPRF, CDP, CP, TSHX #### [facility] [employer] [address] [place] [address] [employer] Supervisor: Chato Aguirre MD Albumin/Glob Ratio 1.3 Normal 1.0-2.5 [facility] Comment on above: Performed By: #### L IPRF, CDP, CP, TSHX #### [facility] [employer] [address] [place] [address] [employer] Supervisor: Chato Aguirre MD Alkaline Phos 49 U/L Normal 35-104 [facility] Comment on above: Performed By: #### L IPRF, CDP, CP, TSHX #### [facility] [employer] [address] [place] [phone] [employer] Supervisor: Chato Aguirre MD ALT [Catalytic activity/Vol] 36 U/L High 5-33 [facility] Comment on above: Performed By: #### L IPRF, CDP, CP, TSHX #### [facility] [employer] [address] [place] [address] [employer] Supervisor: Chato Aguirre MD Anion gap [Moles/Vol] 11 mmol/L Normal 9-17 [facility] Comment on above: Performed By: #### L IPRF, CDP, CP, TSHX #### [facility] [employer] [address] [place] [address] [employer] Supervisor: Chato Aguirre MD AST [Catalytic activity/Vol] 27 U/L Normal <32 [facility] Comment on above: Performed By: #### L IPRF, CDP, CP, TSHX #### [facility] [employer] [address] [place] [address] [employer] Supervisor: Chato Aguirre MD Bilirubin [Mass/Vol] 0.34 mg/dL Normal 0.3-1.2 [facility] Comment on above: Performed By: #### L IPRF, CDP, CP, TSHX #### [address] [address] [employer] Supervisor: Chato Aguirre MD Calcium [Mass/Vol] 9.5 mg/dL Normal 8.6-10.4 [facility] Comment on above: Performed By: #### L IPRF, CDP, CP, TSHX #### [facility] [employer] [address] [place] [address] [employer] Supervisor: Chato Aguirre MD Chloride [Moles/Vol] 102 mmol/L Normal 98-107 [facility] Comment on above: Performed By: #### L IPRF, CDP, CP, TSHX #### [facility] [employer] [address] [place] [address] [employer] Supervisor: Chato Aguirre MD CO2 [Moles/Vol] 22 mmol/L Normal 20-31 [facility] Comment on above: Performed By: #### L IPRF, CDP, CP, TSHX #### [facility] [address] [place] [address] [employer] Supervisor: Chato Aguirre MD Creatinine [Mass/Vol] 0.46 mg/dL Low 0.50-0.90 [facility] Comment on above: Performed By: #### L IPRF, CDP, CP, TSHX #### [address] [address] [employer] Supervisor: Chato Aguirre MD GFR, Amer >60 Normal >60 [facility] Comment on above: Performed By: #### L IPRF, CDP, CP, TSHX #### [address] [address] [employer] Supervisor: Chato Aguirre MD GFR,non Amer >60 Normal >60 [facility] Comment on above: Performed By: #### L IPRF, CDP, CP, TSHX #### [address] [address] [employer] Supervisor: Chato Aguirre MD Glucose [Mass/Vol] 92 mg/dL Normal 70-99 [facility] Comment on above: Performed By: #### L IPRF, CDP, CP, TSHX #### [address] [address] [employer] Supervisor: Chato gAuirre MD Potassium [Moles/Vol] 4.2 mmol/L Normal 3.7-5.3 [facility] Comment on above: Performed By: #### L IPRF, CDP, CP, TSHX #### [address] [address] [employer] Supervisor: Chato Aguirre MD Protein [Mass/Vol] 7.5 g/dL Normal 6.4-8.3 [facility] Comment on above: Performed By: #### L IPRF, CDP, CP, TSHX #### [facility] [employer] [address] [place] [address] [employer] Supervisor: Chato Aguirre MD Sodium [Moles/Vol] 135 mmol/L Normal 135-144 [facility] Comment on above: Performed By: #### L IPRF, CDP, CP, TSHX #### [employer] [address] [place] [address] [employer] Supervisor: Chato Aguirre MD Urea nitrogen [Mass/Vol] 11 mg/dL Normal 6-20 [facility] Comment on above: Performed By: #### L IPRF, CDP, CP, TSHX #### [facility] [address] [place] [phone] [employer] Supervisor: Chato Aguirre MD Lipid Prof, Fastingon 2020 Cholesterol [Mass/Vol] 186 mg/dL Normal <200 [facility] Comment on above: Result Comment: Cholesterol Guidelines: <200 Desirable 200-240 Borderline >240 Undesirable Performed By: #### L IPRF, CDP, CP, TSHX #### [facility] [employer] [address] [place] [address] [employer] Supervisor: Chato Aguirre MD Cholesterol in HDL [Mass/Vol] 49 mg/dL Normal >40 [facility] Comment on above: Result Comment: HDL Guidelines: <40 Undesirable 40-59 Borderline >59 Desirable Performed By: #### L IPRF, CDP, CP, TSHX #### [facility] [employer] [address] [place] [address] [employer] Supervisor: Chato Aguirre MD Cholesterol in LDL [Mass/Vol] 102 mg/dL Normal 0-130 [facility] Comment on above: Result Comment: LDL Guidelines: <100 Desirable 100-129 Near to/above Desirable 130-159 Borderline >159 Undesirable Direct (measured) LDL and calculated LDL are not interchangeable tests. Performed By: #### L IPRF, CDP, CP, TSHX #### [employer] [address] [place] [address] [employer] Supervisor: Chato Aguirre MD Cholesterol.total/Chol esterol in HDL [Mass ratio] 3.8 {ratio} Normal <5 [facility] Comment on above: Performed By: #### L IPRF, CDP, CP, TSHX #### [employer] [address] [place], [place] [phone] [employer] Supervisor: Chato Aguirre MD Triglyceride,Fasting 173 mg/dL High <150 [facility] Comment on above: Result Comment: Triglyceride Guidelines: <150 Desirable 150-199 Borderline 200-499 High >499 Very high Based on AHA Guidelines for fasting triglyceride, February 2012. Performed By: #### L IPRF, CDP, CP, TSHX #### [facility] [address] [place] [address] [phone] [employer] Supervisor: Chato Aguirre MD TSH w/reflex to FT4on 2020 TSH Qn 3.38 m[IU]/L Normal 0.30-5.00 [facility] Comment on above: Performed By: #### L IPRF, CDP, CP, TSHX #### [facility] [employer] [address] [place] [address] [phone] [employer] Supervisor: Chato Aguirre MD CBC Auto DifferentialOrdered By: Miguel Holley on 09-23-2020 [employer] # 0.14 [employer] [facility] Work Phone: [employer] Immature Granulocyte <0.03 [employer] [facility] Work Phone: [employer] Lymph # 2.71 [employer] [facility] Work Phone: Absolute [place] # 0.48 [facility] Work Phone: Basophils (Bld) [#/Vol] 0.05 10*3/uL [employer] Work Phone: Basophils/100 WBC (Bld) 1 % 0 - 2 % [employer] Work Phone: Differential Type NOT REPORTED [facility] Phone: Eosinophils/100 WBC (Bld) 2 % 1 - 4 % [employer] Work Phone: Hematocrit (Bld) [Volume fraction] 42.9 % 36.3 - 47.1 % [facility] Work Phone: Hemoglobin.gastrointes tinal spec 1 Ql (Stl) 13.5 g/dL 11.9 - 15.1 g/dL [facility] Phone: Immature granulocytes/100 WBC (Bld) 0 % 0 [facility] Phone: Lymphocytes/100 WBC (Bld) 30 % 24 - 43 % [facility] Phone: MCH (RBC) [Entitic mass] 27.6 pg 25.2 - 33.5 pg [facility] Phone: MCHC (RBC) [Mass/Vol] 31.5 g/dL 28.4 - 34.8 g/dL [facility] Phone: MCV (RBC) [Entitic vol] 87.6 fL 82.6 - 102.9 fL [facility] Phone: Monocytes/100 WBC (Bld) 5 % 3 - 12 % [facility] Phone: NRBC Automated 0.0 0.0 per 100 WBC [facility] Phone: Platelet distribution width (Bld) [Ratio] 12.4 % 11.8 - 14.4 % [facility] Phone: Platelet Estimate NOT REPORTED [facility] Phone: Platelet mean volume (Bld) [Entitic vol] 11.6 fL 8.1 - 13.5 fL [facility] Phone: Platelets (Bld) [#/Vol] 246 10*3/uL [facility] Phone: RBC (Bld) [#/Vol] 4.90 10*6/uL 3.95 - 5.1 1 m/uL [facility] Phone: RBC (Bld) [#/Vol] NOT REPORTED [facility] Phone: Segmented neutrophils/100 WBC (Bld) 62 % 36 - 65 % [facility] Phone: Segs Absolute 5.79 [facility] Work Phone: WBC (Bld) [#/Vol] 9.2 10*3/uL [facility] Work Phone: WBC (Bld) [#/Vol] NOT REPORTED [facility] Phone: CBC with Diffon 09-23-2020 Abs. Basophil 0.05 k/uL Normal 0.00-0.20 [facility] Comment on above: Performed By: #### L IPRF, CDP, CP, TSHX #### [facility] [employer] [address] [place] [address] [employer] Supervisor: Chato Aguirre MD Abs.Imm.Granulocyte <0.03 Normal 0.00-0.30 [facility] Comment on above: Performed By: #### L IPRF, CDP, CP, TSHX #### [facility] [employer] [address] [place] [address] [employer] Supervisor: Chato Aguirre MD Abs.Neutrophil (Seg) 5.79 k/uL Normal 1.50-8.10 [facility] Comment on above: Performed By: #### L IPRF, CDP, CP, TSHX #### [facility] [employer] [address] [place] [address] [employer] Supervisor: Chato Aguirre MD Basophils/100 WBC (Bld) 1 % Normal 0-2 [facility] Comment on above: Performed By: #### L IPRF, CDP, CP, TSHX #### [facility] [address] [place] [address] [employer] Supervisor: Chato Aguirre MD Eosinophils (Bld) [#/Vol] 0.14 10*3/uL Normal 0.00-0.44 [facility] Comment on above: Performed By: #### L IPRF, CDP, CP, TSHX #### [facility] [address] [address] [employer] Supervisor: Chato Aguirre MD Eosinophils/100 WBC (Bld) 2 % Normal 1-4 [facility] Comment on above: Performed By: #### L IPRF, CDP, CP, TSHX #### [facility] [address] [place] [phone] [employer] Supervisor: Chato Aguirre MD Erythrocyte distribution width (RBC) [Ratio] 12.4 % Normal 11.8-14.4 [facility] Comment on above: Performed By: #### L IPRF, CDP, CP, TSHX #### [facility] [address] [place] [address] [employer] Supervisor: Chato Aguirre MD Hematocrit (Bld) [Volume fraction] 42.9 % Normal 36.3-47.1 [facility] Comment on above: Performed By: #### L IPRF, CDP, CP, TSHX #### [facility] [address] [place] [phone] [employer] Supervisor: Chato Aguirre MD Hemoglobin (Bld) [Mass/Vol] 13.5 g/dL Normal 11.9-15.1 [facility] Comment on above: Performed By: #### L IPRF, CDP, CP, TSHX #### [facility] [address] [place] [address] [employer] Supervisor: Chato Aguirre MD Immature granulocytes/100 WBC (Bld) 0 % Normal 0 [facility] Comment on above: Performed By: #### L IPRF, CDP, CP, TSHX #### [facility] [address] [place] [phone] [employer] Supervisor: Chato Aguirre MD Lymphocytes (Bld) [#/Vol] 2.71 10*3/uL Normal 1.10-3.70 [facility] Comment on above: Performed By: #### L IPRF, CDP, CP, TSHX #### [address] [address] [employer] Supervisor: Chato Aguirre MD Lymphocytes/100 WBC (Bld) 30 % Normal 24-43 [facility] Comment on above: Performed By: #### L IPRF, CDP, CP, TSHX #### [address] [address] [employer] Supervisor: Chato Aguirre MD MCH (RBC) [Entitic mass] 27.6 pg Normal 25.2-33.5 [facility] Comment on above: Performed By: #### L IPRF, CDP, CP, TSHX #### [address] [address] [employer] Supervisor: Chato Aguirre MD MCHC (RBC) [Mass/Vol] 31.5 g/dL Normal 28.4-34.8 [facility] Comment on above: Performed By: #### L IPRF, CDP, CP, TSHX #### [address] [address] [employer] Supervisor: Chato Aguirre MD MCV (RBC) [Entitic vol] 87.6 fL Normal 82.6-102.9 [facility] Comment on above: Performed By: #### L IPRF, CDP, CP, TSHX #### [address] [address] [employer] Supervisor: Chato Aguirre MD Monocytes (Bld) [#/Vol] 0.48 10*3/uL Normal 0.10-1.20 [facility] Comment on above: Performed By: #### L IPRF, CDP, CP, TSHX #### [address] [address] [employer] Supervisor: Chato Aguirre MD Monocytes/100 WBC (Bld) 5 % Normal 3-12 [facility] Comment on above: Performed By: #### L IPRF, CDP, CP, TSHX #### [address] [address] [employer] Supervisor: Chato Aguirre MD Neutrophil (Seg) 62 % Normal 36-65 [facility] Comment on above: Performed By: #### L IPRF, CDP, CP, TSHX #### [address] [address] [employer] Supervisor: Chato Aguirre MD NRBC Automated 0.0 per 100 WBC Normal 0.0 [facility] Comment on above: Performed By: #### L IPRF, CDP, CP, TSHX #### [facility] [address] [place] [address] [employer] Supervisor: Chato Aguirre MD Platelet mean volume (Bld) [Entitic vol] 11.6 fL Normal 8.1-13.5 [facility] Comment on above: Performed By: #### L IPRF, CDP, CP, TSHX #### [facility] [address] [place] [phone] [employer] Supervisor: Chato Aguirre MD Platelets (Bld) [#/Vol] 246 10*3/uL Normal 138-453 [facility] Comment on above: Performed By: #### L IPRF, CDP, CP, TSHX #### [address] [address] [employer] Supervisor: Chato Aguirre MD RBC (Bld) [#/Vol] 4.90 10*6/uL Normal 3.95-5.11 [facility] Comment on above: Performed By: #### L IPRF, CDP, CP, TSHX #### [address] [address] [employer] Supervisor: Chato Aguirre MD WBC (Bld) [#/Vol] 9.2 10*3/uL Normal 3.5-11.3 [facility] Comment on above: Performed By: #### L IPRF, CDP, CP, TSHX #### [facility] [address] [place] [address] [employer] Supervisor: Chato Aguirre MD Auto Diff Performed NOT REPORTED Normal [facility] Comment on above: Performed By: #### L IPRF, CDP, CP, TSHX #### [facility] [address] [place] [address] [employer] Supervisor: Chato Aguirre MD Platelet Estimate NOT REPORTED Normal [facility] Comment on above: Performed By: #### L IPRF, CDP, CP, TSHX #### [facility] [address] [place] [address] [employer] Supervisor: Chato Aguirre MD RBC morphology finding Nom (Bld) NOT REPORTED Normal [facility] Comment on above: Performed By: #### L IPRF, CDP, CP, TSHX #### [facility] [address] [place] [address] [employer] Supervisor: Chato Aguirre MD WBC Morphology NOT REPORTED Normal [facility] Comment on above: Performed By: #### L IPRF, CDP, CP, TSHX #### [facility] [address] [place] [address] [employer] Supervisor: Chato Aguirre MD Comp Metabolic Profon 2020 BUN/CRE Ratio NOT REPORTED Normal 02-17 [facility] Comment on above: Performed By: #### L IPRF, CDP, CP, TSHX #### [facility] [address] [place] [address] [employer] Supervisor: Chato Aguirre MD Staging: NOT REPORTED Normal [facility] Comment on above: Performed By: #### L IPRF, CDP, CP, TSHX #### [facility] [address] [place] [address] [employer] Supervisor: Chato Aguirre MD Comprehensive Metabolic Pane lOrdered By: Miguel Holley on 09-23-2020 Albumin [Mass/Vol] 4.3 g/dL 3.5 - 5.2 g/dL [facility] Phone: Albumin/Globulin [Mass ratio] 1.3 {ratio} [facility] Phone: ALP (Bld) [Catalytic activity/Vol] 49 U/L 35 - 104 U/L [facility] Phone: ALT [Catalytic activity/Vol] 36 U/L High 5 - 33 U/L [facility] Phone: Anion gap [Moles/Vol] 11 mmol/L 9 - 17 mmol/L [facility] Phone: AST [Catalytic activity/Vol] 27 U/L <32 [facility] Phone: Bilirubin [Mass/Vol] 0.34 mg/dL 0.3 - 1 .2 mg/dL [facility] Phone: Calcium [Mass/Vol] 9.5 mg/dL 8.6 - 10. 4 mg/dL [facility] Phone: Chloride [Moles/Vol] 102 mmol/L 98 - 10 7 mmol/L [facility] Phone: CO2 [Moles/Vol] 22 mmol/L 20 - 31 mmol/L [facility] Phone: Creatinine [Mass/Vol] 0.46 mg/dL Low 0.50 - 0.90 mg/dL [facility] Phone: Free PSA/Total PSA [Mass fraction] 7.5 g/dL 6.4 - 8.3 g/dL [facility] Phone: GFR >60 >60 mL/min [facility] Phone: GFR Non- >60 >60 mL/min [facility] Phone: GFR/1.73 sq M.predicted MDRD (S/P/Bld) [Vol rate/Area] [facility] Phone: Comment on above: Average GFR for 20-2 9 years old: 116 mL/min/1.73sq m Chronic Kidney Disease: <60 mL/min/1.73sq m Kidney failure: <15 mL/min/1.73sq m eGFR calculated using average adult body mass. Additional eGFR calculator available at: http://www.TruLeaf/multiple_crcl_2012.htm GFR/1.73 sq M.predicted MDRD (S/P/Bld) [Vol rate/Area] NOT REPORTED [facility] Phone: Glucose [Mass/Vol] 92 mg/dL 70 - 99 mg/dL [facility] Phone: Potassium [Moles/Vol] 4.2 mmol/L 3.7 - 5.3 mmol/L [facility] Phone: Sodium [Moles/Vol] 135 mmol/L 135 - 144 mmol/L [facility] Phone: Urea nitrogen (BldV) [Mass/Vol] 11 mg/dL 6 - 20 mg/dL [facility] Phone: Urea nitrogen/Creatinine (Bld) [Mass ratio] NOT REPORTED [facility] Phone: Laboratory - Chemistry and C hemistry - challengeOrdered By: Miguel Holley on 09-23-2020 Albumin [Mass/Vol] 4.3 g/dL (3.5-5.2 ) [facility] Work Phone: Comment on above: Note: Responsible Ob server cashier: [employer] ([id number]) ALT [Catalytic activity/Vol] 36 U/L High (5-33 ) [facility] Work Phone: Comment on above: Note: Responsible Ob server cashier: [employer] ([id number]) Anion gap [Moles/Vol] 11 mmol/L (9-17 ) [facility] Work Phone: Comment on above: Note: Responsible Ob server cashier: [employer] ([id number]) AST [Catalytic activity/Vol] 27 U/L (<32 ) [facility] Work Phone: Comment on above: Note: Responsible Ob server cashier: [employer] ([id number]) Bilirubin [Mass/Vol] 0.34 mg/dL (0.3-1.2 ) [facility] Work Phone: Comment on above: Note: Responsible Ob server cashier: [employer] ([id number]) Calcium [Mass/Vol] 9.5 mg/dL (8.6-10.4 ) [facility] Work Phone: Comment on above: Note: Responsible Ob server cashier: [employer] ([id number]) Chloride [Moles/Vol] 102 mmol/L (98-107 ) [facility] Work Phone: Comment on above: Note: Responsible Ob server cashier: [employer] ([id number]) Cholesterol [Mass/Vol] 186 mg/dL (<200 ) [facility] Work Phone: Comment on above: Note: Cholesterol Gu idelines:<200 [id number] Borderline>240 UndesirableResponsible Observer: CEEV AUTOFILE ([id number]) Cholesterol.total/Chol esterol in HDL [Mass ratio] 3.8 {ratio} (<5 ) [facility] Work Phone: Comment on above: Note: Responsible Ob server cashier: CEEV AUTOFILE ([id number]) CO2 [Moles/Vol] 22 mmol/L (20-31 ) [facility] Work Phone: Comment on above: Note: Responsible Ob server cashier: CEEV AUTOFILE ([id number]) Creatinine [Mass/Vol] 0.46 mg/dL Low (0.50- 0.90 ) [facility] Work Phone: Comment on above: Note: Responsible Ob server cashier: CEEV AUTOFILE ([id number]) Glucose [Mass/Vol] 92 mg/dL (70-99 ) [facility] Work Phone: Comment on above: Note: Responsible Ob server cashier: CEEV AUTOFILE ([id number]) Magnesium [Mass/Vol] 49 mg/dL (>40 ) [facility] Work Phone: Comment on above: Note: HDL Guidelines :<40 [id number] Borderline>59 DesirableResponsible Observer: CEEV AUTOFILE ([id number]) Magnesium [Mass/Vol] 102 mg/dL (0-130 ) [facility] Work Phone: Comment on above: Note: LDL Guidelines :<100 Pmyiklusm255-460 Near to/above Jsqybuoje392-231 Borderline>159 UndesirableDirect (measured) LDL and calculated LDL are not interchangeable tests.Responsible Observer: CEEV AUTOFILE ([id number]) Magnesium [Mass/Vol] 173 mg/dL High (<150 ) [facility] Work Phone: Comment on above: Note: Triglyceride G uidelines:<150 Qncxwkepc745-551 Qhsxorubug575-350 High>499 Very highBased on AHA Guidelines for fasting triglyceride, February 2012.Responsible Observer: CEEV AUTOFILE ([id number]) Potassium [Moles/Vol] 4.2 mmol/L (3.7-5.3 ) [facility] Work Phone: Comment on above: Note: Responsible Ob server cashier: CEEV AUTOFILE ([id number]) Protein [Mass/Vol] 7.5 g/dL (6.4-8.3 ) [facility] Work Phone: Comment on above: Note: Responsible Ob server cashier: CEEV AUTOFILE ([id number]) Sodium [Moles/Vol] 135 mmol/L (135-144 ) [facility] Work Phone: Comment on above: Note: Responsible Ob server cashier: CEEV AUTOFILE ([id number]) Urea nitrogen [Mass/Vol] 11 mg/dL (6-20 ) [facility] Work Phone: Comment on above: Note: Responsible Ob server cashier: CEEV AUTOFILE ([id number]) Laboratory - Hematology and Cell countsOrdered By: Miguel Holley on 09-23-2020 Basophils/100 WBC (Bld) 1 % (0-2 ) [facility] Work Phone: Comment on above: Note: Responsible Ob server cashier: XNV AUTOFILE ([id number]) Eosinophils (Bld) [#/Vol] 0.14 10*3/uL (0.00-0.44 ) [facility] Work Phone: Comment on above: Note: Responsible Ob server cashier: XNV AUTOFILE ([id number]) Eosinophils/100 WBC (Bld) 2 % (1-4 ) [facility] Work Phone: Comment on above: Note: Responsible Ob server cashier: XNV AUTOFILE ([id number]) Erythrocyte distribution width (RBC) [Ratio] 12.4 % (11.8-14.4 ) [facility] Work Phone: Comment on above: Note: Responsible Ob server cashier: XNV AUTOFILE ([id number]) Hematocrit (Bld) [Volume fraction] 42.9 % (36.3-47.1 ) [facility] Work Phone: Comment on above: Note: Responsible Ob server cashier: XNV AUTOFILE ([id number]) Hemoglobin (Bld) [Mass/Vol] 13.5 g/dL (11.9-15.1 ) [facility] Work Phone: Comment on above: Note: Responsible Ob server cashier: XNV AUTOFILE ([id number]) Immature granulocytes/100 WBC (Bld) 0 % (0 ) [facility] Work Phone: Comment on above: Note: Responsible Ob server cashier: XNV AUTOFILE ([id number]) Lymphocytes (Bld) [#/Vol] 2.71 10*3/uL (1.10-3.70 ) [facility] Work Phone: Comment on above: Note: Responsible Ob server cashier: XNV AUTOFILE ([id number]) Lymphocytes/100 WBC (Bld) 30 % (24-43 ) [facility] Work Phone: Comment on above: Note: Responsible Ob server cashier: XNV AUTOFILE ([id number]) MCH (RBC) [Entitic mass] 27.6 pg (25.2-33.5 ) [facility] Work Phone: Comment on above: Note: Responsible Ob server cashier: XNV AUTOFILE ([id number]) MCHC (RBC) [Mass/Vol] 31.5 g/dL (28.4- 34.8 ) [facility] Work Phone: Comment on above: Note: Responsible Ob server cashier: XNV AUTOFILE ([id number]) MCV (RBC) [Entitic vol] 87.6 fL (82.6-102.9 ) [facility] Work Phone: Comment on above: Note: Responsible Ob server cashier: XNV AUTOFILE ([id number]) Monocytes (Bld) [#/Vol] 0.48 10*3/uL (0.10-1.20 ) [facility] Work Phone: Comment on above: Note: Responsible Ob server cashier: XNV AUTOFILE ([id number]) Monocytes/100 WBC (Bld) 5 % (3-12 ) [facility] Work Phone: Comment on above: Note: Responsible Ob server cashier: XNV AUTOFILE ([id number]) Platelet mean volume (Bld) [Entitic vol] 11.6 fL (8.1-13.5 ) [facility] Work Phone: Comment on above: Note: Responsible Ob server cashier: XNV AUTOFILE ([id number]) Platelets (Bld) [#/Vol] 246 10*3/uL (138-453 ) [facility] Work Phone: Comment on above: Note: Responsible Ob server cashier: XNV AUTOFILE ([id number]) RBC (Bld) [#/Vol] 4.90 10*6/uL (3.95-5.11 ) [facility] Work Phone: Comment on above: Note: Responsible Ob server cashier: XNV AUTOFILE ([id number]) RBC morphology finding Nom (Bld) NOT REPORTED [facility] Work Phone: Segmented neutrophils/100 WBC (Bld) 62 % (36-65 ) [facility] Work Phone: Comment on above: Note: Responsible Ob server cashier: XNV AUTOFILE ([id number]) WBC (Bld) [#/Vol] 9.2 10*3/uL (3.5-11.3 ) [facility] Work Phone: Comment on above: Note: Responsible Ob server cashier: XNV AUTOFILE ([id number]) Lipid Prof, Fastingon 2020 Cholesterol,VLDL NOT REPORTED Normal 1-30 [facility] Comment on above: Performed By: #### L IPRF, CDP, CP, TSHX #### [facility] [place] [address] [employer] Supervisor: Chato Aguirre MD Lipid, FastingOrdered By: Zandra Holley on 09-23-2020 Cholesterol [Mass/Vol] 186 mg/dL <200 [employer] Phone: Comment on above: Cholesterol Guidelines: <200 Desirable 200-240 Borderline >240 Undesirable Cholesterol in HDL [Mass/Vol] 49 mg/dL >40 [employer] Phone: Comment on above: HDL Guidelines: <40 Undesirable 40-59 Borderline >59 Desirable Cholesterol in LDL [Mass/Vol] 102 mg/dL 0 - 130 mg/dL [employer] Phone: Comment on above: LDL Guidelines: <100 Desirable 100-129 Near to/above Desirable 130-159 Borderline >159 Undesirable Direct (measured) LDL and calculated LDL are not interchangeable tests. Cholesterol in VLDL [Mass/Vol] NOT REPORTED High 1 - 30 mg/dL [employer] Phone: Cholesterol.total/Chol esterol in HDL [Mass ratio] 3.8 {ratio} <5 [employer] Phone: Triglyceride, Fasting 173 mg/dL High <150 [facility] [employer] Work Phone: Comment on above: Triglyceride Guidelines: <150 Desirable 150-199 Borderline 200-499 High >499 Very high Based on AHA Guidelines for fasting triglyceride, February 2012. No Panel InformationOrdered By: Miguel Holley on 09-23-2020 Interpretation and review of laboratory results Abnormal [facility] [employer] Work Phone: (cont.) See Note [facility] Work Phone: Comment on above: Note: Average GFR fo r 20-29 years old:116 mL/min/1.73sq mChronic Kidney Disease:<60 mL/min/1.73sq mKidney failure:<15 mL/min/1.73sq meGFR calculated using average adult body mass. Additional eGFR calculatoravailable at:http://www.TruLeaf/multiple_crcl_2011.htmResponsible Observer: CEEV AUTOFILE ([id number]) Abs. Basophil 0.05 k/uL (0.00-0.20 ) [facility] Work Phone: Comment on above: Note: Responsible Ob server cashier: XNV AUTOFILE ([id number]) Abs.Imm.Granulocyte <0.03 k/uL (0.00-0. 30 ) [facility] Work Phone: Comment on above: Note: Responsible Ob server cashier: XNV AUTOFILE ([id number]) Abs.Neutrophil (Seg) 5.79 k/uL (1.50-8 .10 ) [facility] Work Phone: Comment on above: Note: Responsible Ob server cashier: XNV AUTOFILE ([id number]) Albumin/Glob Ratio 1.3 (1.0-2.5 ) [facility] Work Phone: Comment on above: Note: Responsible Ob server cashier: CEEV AUTOFILE ([id number]) Alkaline Phos 49 U/L (35-104 ) [facility] Work Phone: Comment on above: Note: Responsible Ob server cashier: CEEV AUTOFILE ([id number]) Auto Diff Performed NOT REPORTED [facility] Work Phone: BUN/CRE Ratio NOT REPORTED (9-20 ) [facility] Work Phone: Cholesterol,VLDL NOT REPORTED mg/dL (1-30 ) [facility] Work Phone: GFR, Amer >60 mL/min (>60 ) [facility] Work Phone: Comment on above: Note: Responsible Ob server cashier: CEEV AUTOFILE ([id number]) GFR,non Amer >60 mL/min (>60 ) [facility] Work Phone: Comment on above: Note: Responsible Ob server cashier: CEEV AUTOFILE ([id number]) NRBC Automated 0.0 per_100_WBC (0.0 ) [facility] Work Phone: Comment on above: Note: Responsible Ob server cashier: XNV AUTOFILE ([id number]) Platelet Estimate NOT REPORTED [facility] Work Phone: Reported Physicians See Note [facility] Work Phone: Comment on above: Note: Reported Physi cians:Ordering: Cotton, AimeeAttending: Cotton, AimeeReferring: Cotton, Miguel Staging: NOT REPORTED [facility] Work Phone: Thyroid Stim. Horm. 3.38 mIU/L (0.30-5. 00 ) [facility] Work Phone: Comment on above: Note: Responsible Ob server cashier: CEEV AUTOFILE ([id number]) WBC Morphology NOT REPORTED [facility] Work Phone: TSH with ReflexOrdered By: Kamryn Holley on 09-23-2020 TSH Qn 3.38 m[IU]/L [facility] Work Phone: APTTon 04-08-2020 aPTT Coag (Bld) [Time] 25.2 s [place], [place] Comment on above: IV Heparin Therapy Range: 62.0-94.0 Brain Natriuretic Peptideon 04-08-2020 Natriuretic peptide B (Bld) [Mass/Vol] pg/mL <300 pg/mL [place] Comment on above: Pro-BNP results ayse ot be compared to BNP results. Natriuretic peptide B (Bld) [Mass/Vol] Pro-BNP Reference Range: [place], [place] Comment on above: Rule Out: <300 Weaver Zone: Age <50 300-450 Age 50-75 300-900 Age >75 300-1800 Usually represents mild to moderate HF but other cardiopulmonary causes cannot be ruled out. Rule In: Age <50 >450 Age 50-75 >900 Age >75 >1800 CBCon 04-08-2020 Erythrocyte distribution width (RBC) [Ratio] 11.9 % 11.8 - 14.4 % [place] Hematocrit (Bld) [Volume fraction] 37.9 % 36.3 - 47.1 % [place] Hemoglobin (Bld) [Mass/Vol] 12.5 g/dL 11.9 - 15.1 g/dL [place] MCH (RBC) [Entitic mass] 27.8 pg 25.2 - 33.5 pg [place] MCHC (RBC) [Mass/Vol] 33.0 g/dL 28.4 - 34.8 g/dL [place] MCV (RBC) [Entitic vol] 84.2 fL 82.6 - 102.9 fL [place] Platelet mean volume (Bld) [Entitic vol] 10.9 fL 8.1 - 13.5 fL [place] Platelets (Bld) [#/Vol] 184 10*3/uL [place] RBC (Bld) [#/Vol] 4.50 10*6/uL 3.95 - 5.1 1 m/uL [place] WBC (Bld) [#/Vol] 7.8 10*3/uL [place] WBC (Bld) [#/Vol] 0.0 10*3/uL 0.0 per 10 0 WBC [place] COVID-19on 04-08-2020 Interpretation and review of laboratory results Abnormal [place] SARS-CoV-2, Rapid DETECTED Abnormal Not Detected [place] Comment on above: Rapid NAAT: The [...] this assay. Fact sheet for Healthcare Providers: https://www.fda.gov/media/619258/download Fact sheet for Patients: https://www.fda.gov/media/467584/download Methodology: Isothermal Nucleic Acid Amplification Results reported to the appropriate Health Department Source .NASOPHARYNGEAL SWAB [place], [place] CT CHEST PULMONARY EMBOLISM W CONTRASTon 04-08-2020 Unremarkable appeara nce of the chest with no evidence of pulmonary embolism and clear lungs. Incidentally noted hepatic fatty infiltration. [place] EXAMINATION: CTA OF THE CHEST 04/08/2020 [...] No significant osseous or soft tissue abnormality. [place], [place] Jean Marie, Mhpn Incoming Radiant Results From Piqniqe/Pacs - 04/08/2020 4:12 PM EST EXAMINATION: CTA [...] clear lungs. Incidentally noted hepatic fatty infiltration. [place] Comprehensive Metabolic Pane fermin 04-08-2020 Albumin [Mass/Vol] 4.1 g/dL 3.5 - 5.2 g/dL [place] Albumin/Globulin [Mass ratio] 1.4 {ratio} [place] ALP [Catalytic activity/Vol] 62 U/L 35 - 104 U/L [place] ALT [Catalytic activity/Vol] 19 U/L 5 - 33 U/L [place] Anion gap [Moles/Vol] 10 mmol/L 9 - 17 mmol/L [place] AST [Catalytic activity/Vol] 20 U/L <32 [place] Bilirubin Ql (U) 0.48 mg/dL 0.3 - 1.2 mg/dL [place] Bun/Cre Ratio 23 High [place] Calcium [Mass/Vol] 8.9 mg/dL 8.6 - 10. 4 mg/dL [place] Chloride [Moles/Vol] 102 mmol/L 98 - 10 7 mmol/L [place] CO2 [Moles/Vol] 23 mmol/L 20 - 31 mmol/L [place] Creatinine [Mass/Vol] 0.47 mg/dL Low 0.5 - 0.9 mg/dL [place] GFR >60 >60 mL/min [place] GFR Non- >60 >60 mL/min [place] Glucose [Mass/Vol] 88 mg/dL 70 - 99 mg/dL [place] Interpretation and review of laboratory results Abnormal [place] Potassium [Moles/Vol] 3.7 mmol/L 3.7 - 5.3 mmol/L [place] Protein [Mass/Vol] 7.1 g/dL 6.4 - 8.3 g/dL [place] Sodium [Moles/Vol] 135 mmol/L 135 - 144 mmol/L [place] Urea nitrogen [Mass/Vol] 11 mg/dL 6 - 20 mg/dL [place] Metabolic Panelon 04-08-2020 GFR/1.73 sq M predicted among non-blacks MDRD (S/P/Bld) [Vol rate/Area] [place] Comment on above: Stage 1: Some [...] body mass. Additional eGFR calculator available at: http://www.Time Warden.UTStarcom/multiple_crcl_2012.htm Otheron 04-08-2020 SARS-CoV-2 [place], [place] , Urineon 0 Beta HCG ( test) Ql (U) Negative NEGATIVE [place] Comment on above: Specimens with hCG l evels near the threshold of the test (25 mIU/mL) may give a negative or indeterminate result. In such cases, another test should be performed with a new specimen in 48-72 hours. If early is suspected clinically in this setting, correlation with quantitative serum b-hCG level is suggested. [facility] has confirmed the use of plasma for this test. This has not been cleared or approved by the U.S. Food and Drug Administration. The FDA has determined that such clearance is not necessary. Protime-INRon 04-08-2020 INR Coag (PPP) [Relative time] 1.0 {INR} [place] Comment on above: Non-therapeutic Range: INR = 0.9-1.2 Therapeutic Range: Moderate Anticoagulant Intensity: INR = 2.0-3.0 High Anticoagulant Intensity: INR = 2.5-3.5 PT Coag (PPP) [Time] 13.2 s [place], [place] Troponinon 04-08-2020 Troponin I.cardiac [Mass/Vol] NOT REPORTED [place] Troponin T.cardiac [Mass/Vol] NOT REPORTED <0.03 ng/mL [place] Troponin, High Sensitivity <6 0 - 14 ng/L [place] Comment on above: High Sensitivity Troponin values cannot be compared with other Troponin methodologies. Patients with high levels of Biotin oral intake (i.e >5mg/day) may have falsely decreased Troponin levels. Samples collected within 8 hours of biotin intake may require additional information for diagnosis. CBC Auto Differentialon Basophils (Bld) [#/Vol] 0.05 10*3/uL [employer] Phone: Basophils/100 WBC (Bld) 1 % 0 - 2 % [employer] Phone: Differential Type NOT REPORTED [employer] Phone: Eosinophils (Bld) [#/Vol] 0.15 10*3/uL [employer] Phone: Eosinophils/100 WBC (Bld) 1 % 1 - 4 % [employer] Phone: Erythrocyte distribution width (RBC) [Ratio] 12.1 % 11.8 - 14.4 % [employer] Phone: Hematocrit (Bld) [Volume fraction] 44.5 % 36.3 - 47.1 % [employer] Phone: Hemoglobin (Bld) [Mass/Vol] 14.0 g/dL 11.9 - 15.1 g/dL [employer] Phone: Immature granulocytes (Bld) [#/Vol] 0 % 0 [employer] Phone: Immature granulocytes (Bld) [#/Vol] 10*3/uL [employer] Phone: Interpretation and review of laboratory results Abnormal [employer] Phone: Lymphocytes (Bld) [#/Vol] 2.83 10*3/uL [employer] Phone: Lymphocytes/100 WBC (Bld) 27 % 24 - 43 % [employer] Phone: MCH (RBC) [Entitic mass] 27.6 pg 25.2 - 33.5 pg [employer] Phone: MCHC (RBC) [Mass/Vol] 31.5 g/dL 28.4 - 34.8 g/dL [employer] Phone: MCV (RBC) [Entitic vol] 87.6 fL 82.6 - 102.9 fL [employer] Phone: Monocytes (Bld) [#/Vol] 0.52 10*3/uL [employer] Phone: Monocytes/100 WBC (Bld) 5 % 3 - 12 % [employer] Phone: Platelet mean volume (Bld) [Entitic vol] 12.0 fL 8.1 - 13.5 fL [employer] Phone: Platelets (Bld) [#/Vol] NOT REPORTED [employer] Phone: Platelets (Bld) [#/Vol] 241 10*3/uL [employer] Phone: RBC (Bld) [#/Vol] 5.08 10*6/uL 3.95 - 5.1 1 m/uL [employer] Work Phone: RBC morphology finding Nom (Bld) NOT REPORTED [facility] [facility] [employer] Work Phone: Segmented neutrophils/100 WBC (Bld) 66 % High 36 - 65 % [facility] [facility] [employer] Work Phone: Segs Absolute 7.04 [facility] Work Phone: WBC (Bld) [#/Vol] 10.6 10*3/uL [employer] Work Phone: WBC (Bld) [#/Vol] 0.0 10*3/uL 0.0 per 10 0 WBC [facility] [facility] [employer] Work Phone: WBC Morphology NOT REPORTED [facility] Work Phone: [facility]acon 07-06-2019 Cholesterol [Mass/Vol] 198 mg/dL (<200) [facility] Work Phone: Comment on above: Note: Cholesterol Gu idelines:<200 [id number] Borderline>240 UndesirableResponsible Observer: CCEV AUTOFILE ([id number]) Comprehensive Metabolic Pane fermin 07-06-2019 Albumin [Mass/Vol] 4.5 g/dL 3.5 - 5.2 g/dL [employer] Work Phone: Albumin/Globulin [Mass ratio] 1.4 {ratio} [employer] Work Phone: ALP [Catalytic activity/Vol] 62 U/L 35 - 104 U/L [employer] Work Phone: ALT [Catalytic activity/Vol] 39 U/L High 5 - 33 U/L [employer] Work Phone: Anion gap [Moles/Vol] 16 mmol/L 9 - 17 mmol/L [facility] [employer] Work Phone: AST [Catalytic activity/Vol] 32 U/L High <32 [employer] Phone: Bilirubin Ql (U) 0.25 mg/dL Low 0.3 - 1.2 mg/dL [employer] Phone: Bun/Cre Ratio NOT REPORTED [facility] Work Phone: Calcium [Mass/Vol] 9.8 mg/dL 8.6 - 10. 4 mg/dL [employer] Phone: Chloride [Moles/Vol] 103 mmol/L 98 - 10 7 mmol/L [employer] Phone: CO2 [Moles/Vol] 19 mmol/L Low 20 - 31 mmol/L [employer] Phone: Creatinine [Mass/Vol] 0.51 mg/dL 0.5 - 0.9 mg/dL [employer] Phone: GFR >60 >60 mL/min [facility] Phone: GFR Non- >60 >60 mL/min [employer] Phone: GFR/1.73 sq M predicted among non-blacks MDRD (S/P/Bld) [Vol rate/Area] [employer] Phone: Comment on above: Average GFR for 20-2 9 years old: 116 mL/min/1.73sq m Chronic Kidney Disease: <60 mL/min/1.73sq m Kidney failure: <15 mL/min/1.73sq m eGFR calculated using average adult body mass. Additional eGFR calculator available at: http://www.Time Warden.com/multiple_crcl_2012.htm GFR/1.73 sq M predicted among non-blacks MDRD (S/P/Bld) [Vol rate/Area] NOT REPORTED [employer] Phone: Glucose [Mass/Vol] 89 mg/dL 70 - 99 mg/dL [employer] Phone: Interpretation and review of laboratory results Abnormal [employer] Phone: Potassium [Moles/Vol] 4.6 mmol/L 3.7 - 5.3 mmol/L [facility] [employer] Phone: Protein [Mass/Vol] 7.8 g/dL 6.4 - 8.3 g/dL [facility] [employer] Phone: Sodium [Moles/Vol] 138 mmol/L 135 - 144 mmol/L [facility] [employer] Phone: Urea nitrogen [Mass/Vol] 14 mg/dL 6 - 20 mg/dL [facility] [employer] Phone: Hematologyon 07-06-2019 Basophils/100 WBC (Bld) 1 % (0-2) [facility] Work Phone: Comment on above: Note: Responsible Ob server cashier: XNV AUTOFILE ([id number]) Eosinophils (Bld) [#/Vol] 0.15 10*3/uL (0.00-0.44) [facility] Work Phone: Comment on above: Note: Responsible Ob server cashier: XNV AUTOFILE ([id number]) Eosinophils/100 WBC (Bld) 1 % (1-4) [facility] Work Phone: Comment on above: Note: Responsible Ob server cashier: XNV AUTOFILE ([id number]) Hematocrit (Bld) [Volume fraction] 44.5 % (36.3-47.1) [facility] Work Phone: Comment on above: Note: Responsible Ob server cashier: XNV AUTOFILE ([id number]) Hemoglobin (Bld) [Mass/Vol] 14.0 g/dL (11.9-15.1) [facility] Work Phone: Comment on above: Note: Responsible Ob server cashier: XNV AUTOFILE ([id number]) Lymphocytes (Bld) [#/Vol] 2.83 10*3/uL (1.10-3.70) [facility] Work Phone: Comment on above: Note: Responsible Ob server cashier: XNV AUTOFILE ([id number]) Lymphocytes/100 WBC (Bld) 27 % (24-43) [facility] Work Phone: [phone] Comment on above: Note: Responsible Ob server cashier: XNV AUTOFILE ([id number]) MCH (RBC) [Entitic mass] 27.6 pg (25.2-33.5) [facility] Work Phone: [phone] Comment on above: Note: Responsible Ob server cashier: XNV AUTOFILE ([id number]) MCV (RBC) [Entitic vol] 87.6 fL (82.6-102.9 ) [facility] Work Phone: [phone] Comment on above: Note: Responsible Ob server cashier: XNV AUTOFILE ([id number]) Monocytes (Bld) [#/Vol] 0.52 10*3/uL (0.10-1.20) [facility] Work Phone: [phone] Comment on above: Note: Responsible Ob server cashier: XNV AUTOFILE ([id number]) Monocytes/100 WBC (Bld) 5 % (3-12) [facility] Work Phone: [phone] Comment on above: Note: Responsible Ob server cashier: XNV AUTOFILE ([id number]) Platelets (Bld) [#/Vol] NOT REPORTED [facility] Work Phone: [phone] Platelets (Bld) [#/Vol] 241 10*3/uL (138-453) [facility] Work Phone: [phone] Comment on above: Note: Responsible Ob server cashier: XNV AUTOFILE ([id number]) RBC (Bld) [#/Vol] 5.08 10*6/uL (3.95-5.11) [facility] Work Phone: [phone] Comment on above: Note: Responsible Ob server cashier: XNV AUTOFILE ([id number]) RBC morphology finding Nom (Bld) NOT REPORTED [facility] Work Phone: [phone] WBC (Bld) [#/Vol] 0.0 per_100_WBC (0.0) [facility] Work Phone: [phone] Comment on above: Note: Responsible Ob server cashier: XNV AUTOFILE ([id number]) WBC (Bld) [#/Vol] 10.6 10*3/uL (3.5-11.3) [facility] Work Phone: Comment on above: Note: Responsible Ob server cashier: XNV AUTOFILE ([id number]) Lipid, Fastingon 07-06-2019 Cholesterol [Mass/Vol] 198 mg/dL <200 [employer] Work Phone: Comment on above: Cholesterol Guidelines: <200 Desirable 200-240 Borderline >240 Undesirable Cholesterol in HDL [Mass/Vol] 53 mg/dL >40 [facility] Phone: Comment on above: HDL Guidelines: <40 Undesirable 40-59 Borderline >59 Desirable Cholesterol in LDL [Mass/Vol] 118 mg/dL 0 - 130 mg/dL [facility] Phone: Comment on above: LDL Guidelines: <100 Desirable 100-129 Near to/above Desirable 130-159 Borderline >159 Undesirable Direct (measured) LDL and calculated LDL are not interchangeable tests. Cholesterol in VLDL [Mass/Vol] NOT REPORTED 1 - 30 mg/dL [facility] Phone: Cholesterol.total/Chol esterol in HDL [Mass ratio] 3.7 {ratio} <5 [facility] Phone: Triglyceride, Fasting 135 mg/dL <150 [facility] [employer] Phone: Comment on above: Triglyceride Guidelines: <150 Desirable 150-199 Borderline 200-499 High >499 Very high Based on AHA Guidelines for fasting triglyceride, February 2012. Metabolic Panelon 07-06-2019 Albumin [Mass/Vol] 4.5 g/dL (3.5-5.2) [facility] Work Phone: Comment on above: Note: Responsible Ob server cashier: CCEV AUTOFILE ([id number]) ALT [Catalytic activity/Vol] 39 U/L High (5-33) [facility] Work Phone: Comment on above: Note: Responsible Ob server cashier: CCEV AUTOFILE ([id number]) Anion gap [Moles/Vol] 16 mmol/L (9-17) [facility] Work Phone: Comment on above: Note: Responsible Ob server cashier: CCEV AUTOFILE ([id number]) AST [Catalytic activity/Vol] 32 U/L High (<32) [facility] Work Phone: Comment on above: Note: Responsible Ob server cashier: CCEV AUTOFILE ([id number]) Bilirubin [Mass/Vol] 0.25 mg/dL Low (0.3-1.2) [facility] Work Phone: Comment on above: Note: Responsible Ob server cashier: CCEV AUTOFILE ([id number]) Calcium [Mass/Vol] 9.8 mg/dL (8.6-10.4) [facility] Work Phone: Comment on above: Note: Responsible Ob server cashier: CCEV AUTOFILE ([id number]) Chloride [Moles/Vol] 103 mmol/L (98-107) [facility] Work Phone: Comment on above: Note: Responsible Ob server cashier: CCEV AUTOFILE ([id number]) CO2 [Moles/Vol] 19 mmol/L Low (20-31) [facility] Work Phone: Comment on above: Note: Responsible Ob server cashier: CCEV AUTOFILE ([id number]) Creatinine [Mass/Vol] 0.51 mg/dL (0.50-0.90) [facility] [facility] Work Phone: Comment on above: Note: Responsible Ob server cashier: CCEV AUTOFILE (3002) Glucose [Mass/Vol] 89 mg/dL (70-99) [facility] Work Phone: Comment on above: Note: Responsible Ob server cashier: CCEV AUTOFILE (3002) Potassium [Moles/Vol] 4.6 mmol/L (3.7-5.3) [facility] Work Phone: Comment on above: Note: Responsible Ob server cashier: CCEV AUTOFILE (3002) Protein [Mass/Vol] 7.8 g/dL (6.4-8.3) [facility] Work Phone: Comment on above: Note: Responsible Ob server cashier: CCEV AUTOFILE (3002) Sodium [Moles/Vol] 138 mmol/L (135-144) [facility] Work Phone: Comment on above: Note: Responsible Ob server cashier: CCEV AUTOFILE (3002) Urea nitrogen [Mass/Vol] 14 mg/dL (6-20) [facility] Work Phone: Comment on above: Note: Responsible Ob server cashier: CCEV AUTOFILE (3002) Otheron 07-06-2019 (cont.) See Note [facility] Work Phone: Comment on above: Note: Average GFR fo r 20-29 years old:116 mL/min/1.73sq mChronic Kidney Disease:<60 mL/min/1.73sq mKidney failure:<15 mL/min/1.73sq meGFR calculated using average adult body mass. Additional eGFR calculatoravailable at:http://www.TruLeaf/multiple_crcl_2012.htmResponsible Observer: CCEV AUTOFILE (3002) Abs. Basophil 0.05 k/uL (0.00-0.20) [facility] Work Phone: Comment on above: Note: Responsible Ob server cashier: XNV AUTOFILE (3018) Abs.Imm.Granulocyte <0.03 k/uL (0.00-0.30) [facility] Work Phone: Comment on above: Note: Responsible Ob server cashier: XNV AUTOFILE (3018) Abs.Neutrophil (Seg) 7.04 k/uL (1.50-8.10) [facility] Work Phone: Comment on above: Note: Responsible Ob server cashier: XNV AUTOFILE (3018) Albumin/Glob Ratio 1.4 (1.0-2.5) [facility] Work Phone: Comment on above: Note: Responsible Ob server cashier: CCEV AUTOFILE (3002) Alkaline Phos 62 U/L (35-104) [facility] Work Phone: [phone] Comment on above: Note: Responsible Ob server cashier: CCEV AUTOFILE (3002) Auto Diff Performed NOT REPORTED [facility] Work Phone: [phone] BUN/CRE Ratio NOT REPORTED (9-20) [facility] Work Phone: [phone] Cholesterol,HDL 53 mg/dL (>40) [facility] Work Phone: [phone] Comment on above: Note: HDL Guidelines :<40 Xklghcbbvav92-14 Borderline>59 DesirableResponsible Observer: CCEV AUTOFILE (3002) Cholesterol,LDL 118 mg/dL (0-130) [facility] Work Phone: [phone] Comment on above: Note: LDL Guidelines :<100 Znfstpbqf712-607 Near to/above Rljcrtiqn094-079 Borderline>159 UndesirableDirect (measured) LDL and calculated LDL are not interchangeable tests.Responsible Observer: CCEV AUTOFILE (3002) Cholesterol,VLDL NOT REPORTED mg/dL (06-29) [facility] Work Phone: [phone] Cholesterol.total/Chol esterol in HDL [Mass ratio] 3.7 {ratio} (<5) [facility] Work Phone: [phone] Comment on above: Note: Responsible Ob server cashier: CCEV AUTOFILE (3002) Erythrocyte distribution width (RBC) [Ratio] 12.1 % (11.8-14.4) [facility] Work Phone: [phone] Comment on above: Note: Responsible Ob server cashier: XNV AUTOFILE (3018) Free Insulin 34 uIU/mL High (3-19) [facility] Work Phone: [phone] Comment on above: Note: Responsible Ob server cashier: LAB ARUP (0603) GFR, Amer >60 mL/min (>60) [facility] Work Phone: [phone] Comment on above: Note: Responsible Ob server cashier: CCEV AUTOFILE (3002) GFR,non Amer >60 mL/min (>60) [facility] Work Phone: [phone] Comment on above: Note: Responsible Ob server cashier: CCEV AUTOFILE (3002) Immature granulocytes (Bld) [#/Vol] 0 % (0) [facility] Work Phone: [phone] Comment on above: Note: Responsible Ob server cashier: XNV AUTOFILE (3018) MCHC (RBC) [Mass/Vol] 31.5 g/dL (28.4-34.8) [facility] Work Phone: [phone] Comment on above: Note: Responsible Ob server cashier: XNV AUTOFILE (3018) Performing Lab: see note [facility] Work Phone: [phone] Comment on above: Note: [facility] [address] [facility] [address] Note: [facility] [address] [facility] [id number] Platelet mean volume (Bld) [Entitic vol] 12.0 fL (8.1-13.5) [facility] Work Phone: [phone] Comment on above: Note: Responsible Ob server cashier: XNV AUTOFILE (3018) Reported Physicians See Note [facility] Work Phone: [phone] Comment on above: Note: Reported Physi cians:Ordering: Allyson Floyd AAttending: No FloydthiaReferring: Allyson Floyd Segmented neutrophils/100 WBC (Bld) 66 % High (36-65) [facility] Work Phone: [phone] Comment on above: Note: Responsible Ob server cashier: XNV AUTOFILE (3018) Staging: NOT REPORTED [facility] Work Phone: [phone] Thyroid Stim. Horm. 4.15 mIU/L (0.30-5.00) [facility] Work Phone: [phone] Comment on above: Note: Responsible Ob server cashier: CCEV AUTOFILE (3002) Thyroxine, Free 1.21 ng/dL (0.93-1.70) [facility] Work Phone: [phone] Comment on above: Note: Responsible Ob server cashier: CCEV AUTOFILE (3002) Total Insulin 46 uIU/mL High (3-19) [facility] Work Phone: Comment on above: Note: (NOTE)INTERPRE TIVE INFORMATION: Insulin, Free and TotalThis test reacts on a nearly equimolar basis with the analogsinsulin aspart, insulin glargine, and insulin lispro. Insulindetemir exhibits approximately 50 percent cross-reactivity. Testreactivity with insulin glulisine is negligible (<3 percent). Toconvert to pmol/L, multiply uIU/mL by 6.0. Reference intervalsestablished for fasting specimens.Performed by [address] [employer],[address] [place] [address] hdj.[employer], [place] Xiong MD, Lab. DirectorResponsible Observer: LAB KIERAN (0603) Triglyceride,Fasting 135 mg/dL (<150) [facility] Work Phone: Comment on above: Note: Triglyceride G uidelines:<150 [id number] Mjygblvdqq543-138 High>499 Very highBased on AHA Guidelines for fasting triglyceride, February 2012.Responsible Observer: CCEV AUTOFILE (3002) Triiodothyronine T3 150 ng/dL (80-200) [facility] Work Phone: Comment on above: Note: Responsible Ob server cashier: CEEV AUTOFILE (3003) WBC Morphology NOT REPORTED [facility] Work Phone: T3on 07-06-2019 T3, Total 150 ng/dL 80 - 200 ng/dL [facility] Phone: T4, Freeon 07-06-2019 Thyroxine, Free 1.21 ng/dL 0.93 - 1.7 ng/dL [facility] Phone: TSH without Reflexon 020 TSH Qn 4.15 m[IU]/L [facility] Work Phone: US NON OB TRANSVAGINALon Satisfactory IUD position. RECOMMENDATIONS: No follow-up imaging is recommended. Reference: US BPRs based on Radiology 2009;256(3):943-54; CT/MR BPRs based on J Am Joanne Radiol 2013;10:675-681. [place], [place] EXAMINATION: PELVIC ULTRASOUND 02/02/2019 TECHNIQUE: Transvaginal [...] Free Fluid: No evidence of free fluid. [place], [place] Jean Marie, pn Incoming Radiant Results From [facility] - 02/02/2019 8:44 AM EDT EXAMINATION: PELVIC [...] based on J Am Joanne Radiol 2013;10:675-681. [facility]- ROBBY PERES 08-21-2018 CNOV Office Visit (WALKBR ) ----- ESTEFANIA NAVARRETE ([id number]) 1995 F Date Time Provider Department 08/21/18 12:00 PM MIGUEL TENA (DIANELYS) WALKBR During your visit today, we recorded the following information about you: Temperature Pulse Respiration Blood pressure 97.6 degrees 99/minute 16/minute 136/81 Weight 109.8 kg Miguel Tena APRN.CNP 08/21/2018 12:46 PM Signed Subjective The history is provided by the patient. No speech language pathology assistant was used. Cough This is a [...] is a safe and effective decongestant 3. Lamoille Nasal [place] may offer relief of nasal and head [...] help open respiratory and sinus passages. - [place]amo[place] Nasal [place] may offer relief of nasal and head [...] get worse. [facility] I appreciate your confidence in choosing the [facility] for your medical care. Miguel Tena APRN.APPRENTICE ELECTRICIAN [facility] [address] [facility] [address] Referring Provider: SELF [200] [...] is a safe and effective decongestant 3. [place]amo[place] Nasal [place] may offer relief of nasal and head [...] help open respiratory and sinus passages. - [place]amo[place] Nasal [place] may offer relief of nasal and head [...] worse. Thank you for coming to [facility] today. I appreciate your confidence in choosing the [facility] for your medical care. Miguel Tena APRN.APPRENTICE ELECTRICIAN [facility] [address] [facility] [address] Prescriptions ordered this encounter Disp [...] by MIGUEL TENA CNP on 08/21/[address] [facility] PROGRESSon 08-21-2018 Protein mass conc HNO ID: [id number] Author: Miguel Tena Service: ? Author Type: Nurse Practitioner Type: Progress Notes Filed: 08/21/2018 12:46 PM Note Text: Subjective The history is provided by the patient. No speech language pathology assistant was used. Cough This is a [...] 3-5 days or get worse Miguel Tena APRN.CNP [facility] CNCOon 12-22-2017 CNCO Letter Text Erica Velazquez MD [facility] [address] [place] [address] Estefania Navarrete December 22, 2017 Estefania Navarrete [address] [address] [facility] [address] Dear Ms. Navarrete, It was noted that you did not keep your scheduled appointment on 12-22-17. It is important to contact the office in advance if you are unable to keep your appointment so that it is available for other patients. Your medical care is important to us. Please call our office to reschedule an appointment. Sincerely, Erica Velazquez MD [facility] Consult Reporton 01-05-2017 Consult Report Patient: JITENDRA NAVARRETE Age: 21 years Sex: Female : 1995 Associated Diagnoses: None Author: TYRON MA RES, KAREN [facility] Podiatry DepartmentReason for Consult: Active [...] discussed with attending physician, Dr. Jaime Shepard [phone] ically Signed by: KAREN SHEPARD DPM, RES on 01/04/2017 13:59 EDTElectronically Co-Signed by: Cecelia SHEPARD DPM, RES 01/04/2017 14:37 EDTElectronically Co-Signed by: Rene REYES DPM 01/05/2017 18:28 EDT Normal [facility] APTTon 01-04-2017 aPTT 29.9 Second(s) Normal [facility] Comment on above: Result Comment: VERI FIED by Discern Expert. Performed By: #### 1 90745, 7719848, 665959, 881518, 928523, 866245 ####[facility] [address] [place] [address] Medical Director: David Doe MD aPTT 25.9 Second(s) Normal 25.0-36.0 [facility] Comment on above: Performed By: #### 1 68057, 6239550, 946694, 112425, 519915, 021847 ####[facility] [address] [place], [place] [address]) [phone] Director: David Doe MD AUTO DIFFon 01-04-2017 Basophils Auto #/vol (Bld) 0.04 x1000 Normal 0.00-0.20 [facility] Comment on above: Performed By: #### 1 01125, 0786792, 544682, 131896, 176735, 538980 ####[facility] [address] [place] [id number]) [phone] Director: David Doe MD Basos % 0.5 % Normal [facility] Comment on above: Performed By: #### 1 42383, 1040699, 280879, 170388, 745708, 613122 ####[facility] [address] [place] [address] Medical Director: David Doe MD Eos Count 0.10 x1000 Normal 0.00-0.50 [facility] Comment on above: Performed By: #### 1 51886, 6994452, 850038, 401378, 340803, 195337 ####[facility] [address] [place] [id number]) [phone] Director: David Doe MD Eosinophils/100 leukocytes 1.0 % Normal [facility] Comment on above: Performed By: #### 1 13084, 1630591, 498011, 212760, 514804, 181076 ####[facility] [address] [place], [place] [address]) [phone] Director: David Doe MD Lymphocytes 2.84 x1000 Normal 1.20-4.80 [facility] Comment on above: Performed By: #### 1 91062, 7962375, 833680, 357277, 348618, 736687 ####[facility] [address] [place], [place] [address]) [phone] Director: David Doe MD Lymphocytes/100 leukocytes 29.4 % Normal [facility] Comment on above: Performed By: #### 1 61530, 3089824, 498727, 385177, 313359, 061405 ####[facility] [address] [place] [address] Medical Director: David Doe MD [place]in Count 0.68 x1000 Normal 0.10-1.00 [facility] Comment on above: Performed By: #### 1 60430, 2367729, 732445, 525275, 577473, 459167 ####[facility] [address] [place] [address] Medical Director: David Doe MD Monocytes/100 leukocytes 7.0 % Normal [facility] Comment on above: Performed By: #### 1 55575, 2397131, 100873, 316481, 637450, 619173 ####[facility] [address] [place] [address] Medical Director: David Doe MD Neutrophils 5.98 x1000 Normal 1.40-8.80 [facility] Comment on above: Performed By: #### 1 58475, 3021094, 729228, 921234, 193785, 924935 ####[facility] [address] [place] [address] Medical Director: David Doe MD Neutrophils/100 WBC Auto (Bld) 62.0 % Normal [facility] Comment on above: Performed By: #### 1 19411, 7116324, 911643, 066087, 529139, 358693 ####[facility] [address] [place] [address] Medical Director: David Doe MD COMPMETAon 01-04-2017 Globulin 4.0 g/dL Normal [facility] Comment on above: Performed By: #### 1 10993, 7354899, 335393, 222779, 515629, 581300 ####[facility] [address] [place] [address] Medical Director: David Doe MD Osmolality 277 mOsm/kg Normal 275-295 [facility] Comment on above: Performed By: #### 1 28092, 4896842, 789109, 802423, 754745, 221033 ####[facility] [address] [place], [place] [address]) [phone] Director: David Doe MD eGFR (non-black) mL/min/{1.73_m2} Normal So [facility] Comment on above: Result Comment: Afri can [place] GFR Calc Performed By: #### 1 22020, 5273858, 058327, 127383, 651161, 733320 ####[facility] [address] [place] [address] Medical Director: David Doe MD Result Comment: Non GFR CalcMedical judgement is necessary to interpret GFR. The calculated GFR may not accurately reflect renal status in patients >70 years, women, acutely ill hospitalized patients and patients with acute renal failure or known renal disease.Note:Creatinine clearance (not GFR) should be used for drug dosing. Albumin/Globulin Ratio 0.8 {ratio} Normal [facility] Comment on above: Performed By: #### 1 01319, 0625154, 634430, 512345, 665768, 406824 ####[facility] [address] [place], [place] [address]) [phone] Director: David Doe MD BUN/Creatinine Ratio 17.6 mg/mg Normal [facility] Comment on above: Performed By: #### 1 62837, 8551309, 782721, 546480, 951183, 838335 ####[facility] [address] [place], [place] [address]) [phone] Director: David Doe MD Alk Phos 61 unit/L Normal 45-117 [facility] Comment on above: Performed By: #### 1 28873, 6783774, 909794, 969828, 747079, 027679 ####[facility] [address] [place] [address] Medical Director: David oDe MD Bilirubin (total) 0.41 mg/dL Normal 0.20-1.00 [facility] Comment on above: Performed By: #### 1 74498, 6366634, 010642, 959854, 924487, 457153 ####[facility] [address] [place] [address] Medical Director: David Doe MD Protein 7.4 g/dL Normal 6.0-8.5 [facility] Comment on above: Performed By: #### 1 15807, 6272274, 987189, 115490, 540843, 426766 ####[facility] [address] [place] [address] Medical Director: David Doe MD GPT 16 unit/L Normal 13-56 [facility] Comment on above: Result Comment: Mariposa puncture should occur prior to sulfasalazine and/or sulfapyridine administration due to the potential for falsely depressed results.Baseline assay values before administration of sulfasalazine and sulfapyridine therapy would not be affected. Performed By: #### 1 19110, 4676207, 288373, 015161, 835983, 086999 ####[facility] [address] [place] [address] Medical Director: David Doe MD Creatinine 0.7 mg/dL Normal 0.6-1.0 [facility] Comment on above: Performed By: #### 1 03663, 5842781, 409084, 026908, 735447, 756868 ####[facility] [address] [place] [address] Medical Director: David Doe MD GOT 14 unit/L Low 15-37 [facility] Comment on above: Result Comment: Mariposa puncture should occur prior to sulfasalazine and/or sulfapyridine administration due to the potential for falsely depressed results.Baseline assay values before administration of sulfasalazine and sulfapyridine therapy would not be affected. Performed By: #### 1 61112, 5043047, 432918, 960294, 640691, 745436 ####[facility] [address] [place] [address] Medical Director: David Doe MD Urea nitrogen 13 mg/dL Normal 10-20 [facility] Comment on above: Performed By: #### 1 62187, 7167136, 959756, 439578, 604079, 515572 ####[facility] [address] [place] [address] Medical Director: David Doe MD Glucose mass conc 86 mg/dL Normal 72-100 [facility] Comment on above: Result Comment: Mariposa puncture should occur prior to sulfasalazine administration due to the potential for falsely depressed results. Venipuncture should occur prior to sulfapyridine administration due to the potential falsely elevated results.Baseline assay values before administration of sulfasalazine and sulfapyridine therapy would not be affected. Performed By: #### 1 56595, 1624117, 850523, 398869, 884178, 574505 ####[facility] [address] [place] [address] Medical Director: David Doe MD Albumin 3.4 g/dL Normal 3.4-5.0 [facility] Comment on above: Performed By: #### 1 87477, 9607575, 366757, 360657, 045400, 000727 ####[facility] [address] [place] [address] Medical Director: David Doe MD CO2 19.0 mmol/L Low 21.0-32.0 [facility] Comment on above: Performed By: #### 1 05443, 9503460, 203770, 253419, 870143, 400385 ####[facility] [address] [place] [address] Medical Director: David Doe MD Calcium 9.0 mg/dL Normal 8.5-10.5 [facility] Comment on above: Performed By: #### 1 88580, 3800822, 071203, 254788, 265202, 274642 ####[facility] [address] [place] [address] Medical Director: David Doe MD Potassium molar conc 3.7 mmol/L Normal 3.5-5.1 [facility] Comment on above: Performed By: #### 1 26903, 5220515, 377646, 987241, 038038, 577729 ####[facility] [address] [place] [address] Medical Director: David Doe MD Sodium 139 mmol/L Normal 135-145 [facility] Comment on above: Performed By: #### 1 85077, 0941432, 090524, 258344, 718740, 822574 ####[facility] [address] [place] [address] Medical Director: David Doe MD Chloride 108 mmol/L Normal 100-109 [facility] Comment on above: Performed By: #### 1 31442, 1228301, 348915, 784267, 624849, 027326 ####[facility] [address] [place] [address] Medical Director: David Doe MD CT L[facility] LOWER EXTREMITY WO CONTRAST RIGHT [...] Damir SMITH MD Out: 01/04/17 12:59:57 Normal [facility] ED Physician Reporton 2016 ED [...] Plan Diagnosis Crush injury of right foot ([id number] S97.81XA, Working, Medical) Plan Condition: Stable. Disposition: ED Discharge to Home was placed.(01/04/2017 13:39:31 EDT, Constant Order). Prescriptions: Launch prescriptions Pharmacy:Percocet 5/325 ([id number]) oral tablet (Prescribe): 1 tabs, ORAL, [id number], PRN: for pain, 24 tabs, 0 Refill(s)doxycycline hyclate 100 mg oral tablet (Prescribe): 100 mg = 1 tabs, ORAL, BID, for 10 days, 20 tabs, 0 Refill(s). Patient was given the following educational materials: Cryotherapy, Llye-sx-Nggn, Compartment Syndrome of the Foot, Compartment Syndrome of the Foot, Cryotherapy, Fcjf-tg-Xfqs. Follow up with: 837 NO FAMILY PHYSICIAN [...] by: Selene GALVAN MD 01/04/2017 14:19 Normal [facility] ED Progress Noteon 7 ED [...] medicatedsig other at bedsidepodiatry coming to see [id number] ASSUMED CARE OF PT, REPORT RECEIVED FROM BAUTISTA MAICAS.1354 PT MEDICATED PER ORDER, JT, P.A. AT [...] a little dizzy after trying crutches. Normal [facility] HCGon 01-04-2017 HCG, Qual <1.0 Normal [facility] Comment on above: Result Comment: 0 - 3 Negative3 - 50 Inconclusive>50 Positive Performed By: #### 1 16696, 0050371, 920130, 153622, 789361, 248980 ####[facility] [address] [place] [address] Medical Director: David Doe MD HEMOon 01-04-2017 DIFF? No Normal [facility] Comment on above: Performed By: #### 1 27409, 6393996, 726274, 632149, 544317, 783815 ####[facility] [address] [place] [address] Medical Director: David Doe MD Erythrocyte distribution width Auto Ratio (RBC) 13.3 % Normal 11.5-14.5 [facility] Comment on above: Performed By: #### 1 37124, 7304892, 096559, 797348, 262290, 906044 ####[facility] [address] [place] [address] Medical Director: David Doe MD Erythrocytes (RBC) 4.80 x10 Normal 4.20-5.40 [facility] Comment on above: Result Comment: Note : RBC morphology is normal unless otherwise stated. Evaluation performed only if differential is requested. Performed By: #### 1 45235, 5670542, 526954, 881257, 673066, 662159 ####[facility] [address] [place], [place] [address]) [phone] Director: David Doe MD Hematocrit (HCT) 39.0 % Normal 36.0-46.0 [facility] Comment on above: Performed By: #### 1 22779, 3313192, 421181, 973574, 519283, 290827 ####[facility] [address] [place], [place] [address]) [phone] Director: David Doe MD Hemoglobin mass conc (Bld) 13.1 g/dL Normal 12.0-16.0 [facility] Comment on above: Performed By: #### 1 46805, 0287308, 107734, 156076, 988586, 331837 ####[facility] [address] [place], [place] [address]) [phone] Director: David Doe MD MCH 27.3 pg Normal 27.0-34.0 [facility] Comment on above: Performed By: #### 1 21288, 5277308, 182688, 495555, 242656, 844740 ####[facility] [address] [place], [place] [address]) [phone] Director: David Doe MD MCHC mass conc (RBC) 33.6 g/dL Normal 32.0-37.0 [facility] Comment on above: Performed By: #### 1 88731, 7626185, 392249, 157944, 259079, 502787 ####[facility] [address] [place] [address] Medical Director: David Doe MD MCV 81.3 fL Normal 80.0-100.0 [facility] Comment on above: Performed By: #### 1 13764, 9743106, 324190, 949473, 194919, 883502 ####[facility] [id number] [place] [address] Medical Director: David Doe MD Nucleated RBC% 0 /100WC Normal [facility] Comment on above: Performed By: #### 1 [id number], [id number], [id number], [id number] ####[facility] [id number] [place] [address] Medical Director: David Doe MD Platelet mean volume (PMV) 9.4 fL Normal 7.4-10.4 [facility] Comment on above: Performed By: #### 1 [id number], [id number], [id number], [id number] ####[facility] [id number] [place] [address] Medical Director: David Doe MD Platelets 238 x1000 Normal 150-450 [facility] Comment on above: Performed By: #### 1 [id number] 192403, [id number], [id number], [id number] ####[facility] [id number] [place] [address] Medical Director: David Doe MD WBC (Leukocytes) 9.6 10*3/uL Normal [facility] Comment on above: Performed By: #### 1 [id number], [id number], [id number], [id number], [id number] ####[facility] [id number] [place] [address] Medical Director: David Doe MD WBC (Leukocytes) 9.6 x10 Normal 4.5-11.0 [facility] Comment on above: Performed By: #### 1 [id number], [id number], 825755, 615973, [id number], [id number] ####[facility] [id number] [place] [address] Medical Director: David Doe MD PT INRon 01-04-2017 Protime Median 11.1 Second(s) Normal [facility] Comment on above: Result Comment: VERI FIED by Discern Expert. Performed By: #### 1 [id number], [id number], [id number], 049417, [id number], [id number] ####[facility] [id number] [place] [address] Medical Director: David Doe MD INR Coag RelTime (PPP) 1.0 {INR} Normal So [facility] Comment on above: Result Comment: Norm al reference range for INR on patients not on anticoagulant therapy: 0.9-1.1. General therapeutic range for patients on anticoagulant therapy: 2.0-3.5. Performed By: #### 1 [id number], [id number] [id number], [id number], 272246, [id number] ####[facility] [id number] [place] [address] Medical Director: David Doe MD Protime Patient 11.3 Second(s) Normal 9.8-12.7 [facility] Comment on above: Performed By: #### 1 [id number], [id number], 252803, 200693, [id number], [id number] ####[facility] [id number] [place] [address] Medical Director: David Doe MD XR FOOT [...] Alberto AGUILAR MD Out: 01/04/17 11:49:07 Normal [facility] Vital Signs Date Time Vital Sign Value Performing Clinician Facility 02-13-2025 09:27-0400 Body mass index (BMI) [Ratio] 43.54 kg/m2 Aditya Billy DO Work Phone: [facility] 02-13-2025 09:27-0400 Body weight 126.1 kg Aditya Billy DO Work Phone: [facility] 02-13-2025 09:27-0400 Diastolic blood pressure 80 mm[Hg] Aditya Billy DO Work Phone: [facility] 02-13-2025 09:27-0400 Systolic blood pressure 128 mm[Hg] Aditya Billy DO Work Phone: [facility] 02-06-2025 09:29-0400 Body mass index (BMI) [Ratio] 43.38 kg/m2 Aditya Billy DO Work Phone: [facility] 02-06-2025 09:29-0400 Body weight 125.65 kg Aditya Billy DO Work Phone: [facility] 02-06-2025 09:29-0400 Diastolic blood pressure 78 mm[Hg] Aditya Billy DO Work Phone: [facility] 02-06-2025 09:29-0400 Systolic blood pressure 126 mm[Hg] Aditya Billy DO Work Phone: [facility] 01-23-2025 09:44-0400 Body mass index (BMI) [Ratio] 43.35 kg/m2 Latasha KULKARNI Work Phone: [facility] 01-23-2025 09:44-0400 Body weight 125.56 kg Latasah KULKARNI Work Phone: [facility] 01-23-2025 09:44-0400 Diastolic blood pressure 74 mm[Hg] Latasha Padgett PA Work Phone: [facility] 01-23-2025 09:44-0400 Systolic blood pressure 122 mm[Hg] Latasha Dayron PA Work Phone: [facility] 12-27-2024 10:35-0400 Body mass index (BMI) [Ratio] 42.88 kg/m2 Latasha Tidioute PA Work Phone: [facility] 12-27-2024 10:35-0400 Body weight 124.19 kg Latasha Dayron PA Work Phone: [facility] 12-27-2024 10:35-0400 Diastolic blood pressure 74 mm[Hg] Latasha Dayron PA Work Phone: [facility] 12-27-2024 10:35-0400 Systolic blood pressure 122 mm[Hg] Latasha Dayron PA Work Phone: [facility] 12-13-2024 13:51-0400 Body mass index (BMI) [Ratio] 43.07 kg/m2 Aditya Billy DO Work Phone: [facility] 12-13-2024 13:51-0400 Body weight 124.74 kg Aditya Billy DO Work Phone: [facility] 12-13-2024 13:51-0400 Diastolic blood pressure 70 mm[Hg] Aditya Billy DO Work Phone: [facility] 12-13-2024 13:51-0400 Systolic blood pressure 128 mm[Hg] Aditya Billy DO Work Phone: [facility] 11-22-2024 14:29-0400 Body mass index (BMI) [Ratio] 42.57 kg/m2 Aditya Billy DO Work Phone: [facility] 11-22-2024 14:29-0400 Body weight 123.29 kg Aditya Billy DO Work Phone: [facility] 11-22-2024 14:29-0400 Diastolic blood pressure 78 mm[Hg] Aditya Billy DO Work Phone: [facility] 11-22-2024 14:29-0400 Systolic blood pressure 128 mm[Hg] Aditya Billy DO Work Phone: [facility] 10-25-2024 09:07-0400 Body mass index (BMI) [Ratio] 41.86 kg/m2 Latasha Dayron PA Work Phone: [facility] 10-25-2024 09:07-0400 Body weight 121.22 kg Latasha Dayron PA Work Phone: [facility] 10-25-2024 09:07-0400 Diastolic blood pressure 82 mm[Hg] Latasha Dayron PA Work Phone: [facility] 10-25-2024 09:07-0400 Systolic blood pressure 108 mm[Hg] Latasha Tidioute PA Work Phone: [facility] 09-26-2024 10:24-0400 Body mass index (BMI) [Ratio] 41.62 kg/m2 Aditya Billy DO Work Phone: [facility] 09-26-2024 10:24-0400 Body weight 120.54 kg Aditya Billy DO Work Phone: [facility] 09-26-2024 10:24-0400 Diastolic blood pressure 76 mm[Hg] Aditya Billy DO Work Phone: [facility] 09-26-2024 10:24-0400 Systolic blood pressure 124 mm[Hg] Aditya Billy DO Work Phone: [facility] 08-29-2024 09:23-0400 Body mass index (BMI) [Ratio] 41.47 kg/m2 Aditya Billy DO Work Phone: [facility] 08-29-2024 09:23-0400 Body weight 120.11 kg Aditya Billy DO Work Phone: [facility] 08-29-2024 09:23-0400 Diastolic blood pressure 66 mm[Hg] Aditya Billy DO Work Phone: [facility] 08-29-2024 09:23-0400 Systolic blood pressure 122 mm[Hg] Aditya Cervantes DO Work Phone: [facility] 06-14-2024 09:05-0500 Body mass index (BMI) [Ratio] 41.16 kg/m2 Latasha Tidioute PA Work Phone: [facility] 06-14-2024 09:05-0500 Body weight 119.2 kg Latasha Dayron PA Work Phone: [facility] 06-14-2024 09:05-0500 Diastolic blood pressure 74 mm[Hg] Latasha Tidioute PA Work Phone: [facility] 06-14-2024 09:05-0500 Systolic blood pressure 114 mm[Hg] Latasha Dayron PA Work Phone: [facility] 05-17-2024 08:45-0500 Body mass index (BMI) [Ratio] 41.04 kg/m2 Latasha Tidioute PA Work Phone: [facility] 05-17-2024 08:45-0500 Body weight 118.84 kg Latasha Tidioute PA Work Phone: [facility] 05-17-2024 08:45-0500 Diastolic blood pressure 70 mm[Hg] Latasha Tidioute PA Work Phone: [facility] 05-17-2024 08:45-0500 Systolic blood pressure 118 mm[Hg] Latasha Tidioute PA Work Phone: [facility] 04-18-2024 09:17-0500 Body mass index (BMI) [Ratio] 42.26 kg/m2 Latasha Dayron PA Work Phone: [facility] 04-18-2024 09:17-0500 Body weight 122.38 kg Latasha Dayron PA Work Phone: [facility] 04-18-2024 09:17-0500 Diastolic blood pressure 76 mm[Hg] Latasha Dayron PA Work Phone: [facility] 04-18-2024 09:17-0500 Systolic blood pressure 114 mm[Hg] Latasha Dayron PA Work Phone: [facility] 02-21-2024 14:13-0400 Body mass index (BMI) [Ratio] 39.47 kg/m2 Latasha Padgett PA Work Phone: [facility] 02-21-2024 14:13-0400 Body weight 114.31 kg Latasha Padgett PA Work Phone: [facility] 02-21-2024 14:13-0400 Diastolic blood pressure 74 mm[Hg] Latasha Padgett PA Work Phone: [facility] 02-21-2024 14:13-0400 Systolic blood pressure 118 mm[Hg] Latasha Padgett PA Work Phone: [facility] 07-15-2023 11:50-0500 Body mass index (BMI) [Ratio] 36.65 kg/m2 Aditya Billy DO Work Phone: [facility] 07-15-2023 11:50-0500 Body weight 106.14 kg Aditya Billy DO Work Phone: [facility] 12-04-2021 10:03-0400 Body height 173.35 cm [employer] 12-04-2021 10:03-0400 Body mass index (BMI) [Ratio] 35.22 kg/m2 [employer] 12-04-2021 10:03-0400 Body surface area Derived from formula 2.26 m2 [employer] 12-04-2021 10:03-0400 Body weight 105.83 kg [employer] 12-04-2021 10:03-0400 Diastolic blood pressure 68 mm[Hg] [employer] 12-04-2021 10:03-0400 Heart rate 68 /min [employer] 12-04-2021 10:03-0400 Systolic blood pressure 116 mm[Hg] Shona Lucio [facility] 10-15-2020 01:15-0400 Diastolic blood pressure 71 mm[Hg] Donny Andes DO Work Phone: [employer] Work Phone: 10-15-2020 01:15-0400 SaO2% (BldA) [Mass fraction] 94 % Donny Andes DO Work Phone: [employer] Work Phone: 10-15-2020 01:15-0400 Systolic blood pressure 117 mm[Hg] Donny Andes DO Work Phone: [employer] Work Phone: 10-14-2020 23:18-0400 Body temperature 97.59 [degF] Donny Andes DO Work Phone: [employer] Work Phone: 10-14-2020 23:18-0400 Heart rate 98 /min Donny Andes DO Work Phone: [employer] Work Phone: 10-14-2020 23:18-0400 Respiratory rate 18 /min Donny Andes DO Work Phone: [employer] Work Phone: 09-23-2020 08:31-0400 Body height 172.72 cm Miguel Holley AchaLa Work Phone: [employer] [facility] Work Phone: 09-23-2020 08:31-0400 Body mass index (BMI) [Ratio] 40.9 kg/m2 Miguel Holley AchaLa Work Phone: [facility] [facility] Work Phone: 09-23-2020 08:31-0400 Body surface area Derived from formula 2.32 m2 Miguel Holley CNP Work Phone: [facility] Work Phone: 09-23-2020 08:31-0400 Body temperature 964 [degF] Miguel Holley CNP Work Phone: [facility] Work Phone: 09-23-2020 08:31-0400 Body weight 122.02 kg Miguel Holley CNP Work Phone: [facility] Work Phone: 09-23-2020 08:31-0400 Diastolic blood pressure 80 mm[Hg] Miguel Holley CNP Work Phone: [facility] Work Phone: 09-23-2020 08:31-0400 Heart rate 80 /min Miguel Holley CNP Work Phone: [facility] Work Phone: 09-23-2020 08:31-0400 Respiratory rate 18 /min Miguel Holley CNP Work Phone: [facility] Work Phone: 09-23-2020 08:31-0400 SaO2% (BldA) [Mass fraction] 98 % Miguel Holley CNP Work Phone: [facility] Work Phone: 09-23-2020 08:31-0400 Systolic blood pressure 126 mm[Hg] Miguel Holley CNP Work Phone: [facility] Work Phone: 04-08-2020 16:25-0500 Respiratory Rate 16 /min Miguel Holley [employer] [facility] [place] [place] 04-08-2020 16:20-0500 Pulse (Heart Rate) 86 /min Miguel Leydi [facility] [place], [place] 04-08-2020 16:20-0500 Pulse Oximetry 98 % [facility] , [place] 04-08-2020 16:00-0500 BP Diastolic 66 mm[Hg] [facility] [place] 04-08-2020 16:00-0500 BP Systolic 121 mm[Hg] [facility] [place] 04-08-2020 13:23-0500 Body Temperature 98.4 [degF] [facility] [place] [facility] [place] 03-19-2020 19:09-0400 BMI (Body Mass Index) 37.3 kg/m2 [facility] Work Phone: 03-19-2020 19:09-0400 Body weight 111.[address] [facility] Work Phone: 03-19-2020 19:09-0400 BSA (Body Surface Area) 2.[address] [facility] Work Phone: 03-19-2020 19:09-0400 Height 172.[address] [facility] Work Phone: 03-05-2020 08:30-0400 BMI (Body Mass Index) 37.3 kg/m2 [facility] Work Phone: 03-05-2020 08:30-0400 Body Temperature 95.4 [degF] [facility] Work Phone: 03-05-2020 08:30-0400 Body weight 111.[address] [facility] Work Phone: 03-05-2020 08:30-0400 BP Diastolic 80 mm[Hg] [facility] Work Phone: 03-05-2020 08:30-0400 BP Systolic 120 mm[Hg] [facility] Work Phone: 03-05-2020 08:30-0400 BSA (Body Surface Area) 2.[address] [facility] Work Phone: 03-05-2020 08:30-0400 Height 172.[address] [facility] Work Phone: 03-05-2020 08:30-0400 Pulse (Heart Rate) 74 /min [facility] Work Phone: 03-05-2020 08:30-0400 Pulse Oximetry 99 % [facility] Work Phone: 03-05-2020 08:30-0400 Respiratory Rate 18 /min [facility] Work Phone: 03-05-2020 08:30-0400 SaO2% (BldA) [Mass fraction] 99 % [facility] Work Phone: [facility] Work Phone: 12-05-2019 08:37-0400 BMI (Body Mass Index) 35.4 kg/m2 [facility] Work Phone: 12-05-2019 08:37-0400 Body Temperature 98.8 [degF] [facility] Work Phone: 12-05-2019 08:37-0400 Body weight 105.[address] [facility] Work Phone: 12-05-2019 08:37-0400 BP Diastolic 72 mm[Hg] [facility] Work Phone: 12-05-2019 08:37-0400 BP Systolic 116 mm[Hg] [facility] Work Phone: 12-05-2019 08:37-0400 BSA (Body Surface Area) 2.[address] [facility] Work Phone: 12-05-2019 08:37-0400 Flow Rate 0 L/min [facility] Work Phone: 12-05-2019 08:37-0400 Height 172.[address] [facility] Work Phone: 12-05-2019 08:37-0400 Inhaled Oxygen Concentration 21 % [facility] Work Phone: 12-05-2019 08:37-0400 Pulse (Heart Rate) 81 /min [facility] Work Phone: 12-05-2019 08:37-0400 Pulse Oximetry 98 % [facility] Work Phone: 12-05-2019 08:37-0400 Respiratory Rate 18 /min [facility] Work Phone: 12-05-2019 08:37-0400 SaO2% (BldA) [Mass fraction] 98 % [facility] Work Phone: [facility] Work Phone: 11-06-2019 09:02-0400 BMI (Body Mass Index) 36.2 kg/m2 [facility] Work Phone: 11-06-2019 09:02-0400 Body Temperature 95.8 [degF] [facility] Work Phone: 11-06-2019 09:02-0400 Body weight 107.[address] [facility] Work Phone: 11-06-2019 09:02-0400 BP Diastolic 80 mm[Hg] [facility] Work Phone: 11-06-2019 09:02-0400 BP Systolic 110 mm[Hg] [facility] Work Phone: 11-06-2019 09:02-0400 BSA (Body Surface Area) 2.[address] [facility] Work Phone: 11-06-2019 09:02-0400 Height 172.[address] [facility] Work Phone: 11-06-2019 09:02-0400 Pulse (Heart Rate) 94 /min [facility] Work Phone: 11-06-2019 09:02-0400 Pulse Oximetry 98 % [facility] Work Phone: 11-06-2019 09:02-0400 Respiratory Rate 18 /min [facility] Work Phone: 11-06-2019 09:02-0400 SaO2% (BldA) [Mass fraction] 98 % [facility] Work Phone: [facility] Work Phone: 10-12-2019 09:53-0400 BMI (Body Mass Index) 38.2 kg/m2 [facility] Work Phone: 10-12-2019 09:53-0400 Body Temperature 98.7 [degF] [facility] Work Phone: 10-12-2019 09:53-0400 Body weight 113.[address] [facility] Work Phone: 10-12-2019 09:53-0400 BP Diastolic 82 mm[Hg] [facility] Work Phone: 10-12-2019 09:53-0400 BP Systolic 122 mm[Hg] [facility] Work Phone: 10-12-2019 09:53-0400 BSA (Body Surface Area) 2.[address] [facility] Work Phone: 10-12-2019 09:53-0400 Flow Rate 0 L/min [facility] Work Phone: 10-12-2019 09:53-0400 Height 172.[address] [facility] Work Phone: 10-12-2019 09:53-0400 Inhaled Oxygen Concentration 21 % [facility] Work Phone: 10-12-2019 09:53-0400 Pulse (Heart Rate) 97 /min [facility] Work Phone: 10-12-2019 09:53-0400 Pulse Oximetry 98 % [facility] Work Phone: 10-12-2019 09:53-0400 Respiratory Rate 18 /min [facility] Work Phone: 10-12-2019 09:53-0400 SaO2% (BldA) [Mass fraction] 98 % [facility] Work Phone: [facility] Work Phone: 09-14-2019 08:35-0400 BMI (Body Mass Index) 37.7 kg/m2 [facility] Work Phone: 09-14-2019 08:35-0400 Body Temperature 96.6 [degF] [facility] Work Phone: 09-14-2019 08:35-0400 Body weight 112.[address] [facility] Work Phone: 09-14-2019 08:35-0400 BP Diastolic 80 mm[Hg] [facility] Work Phone: 09-14-2019 08:35-0400 BP Systolic 130 mm[Hg] [facility] Work Phone: 09-14-2019 08:35-0400 BSA (Body Surface Area) 2.[address] [facility] Work Phone: 09-14-2019 08:35-0400 Height 172.[address] [facility] Work Phone: 09-14-2019 08:35-0400 Pulse (Heart Rate) 81 /min [facility] Work Phone: 09-14-2019 08:35-0400 Pulse Oximetry 98 % [facility] Work Phone: 09-14-2019 08:35-0400 Respiratory Rate 18 /min [facility] Work Phone: 09-05-2019 10:26-0400 BMI (Body Mass Index) 37.3 kg/m2 [facility] Work Phone: 09-05-2019 10:26-0400 Body weight 111.[address] [facility] Work Phone: 09-05-2019 10:26-0400 BSA (Body Surface Area) 2.[address] [facility] Work Phone: 09-05-2019 10:26-0400 Height 172.[address] [facility] Work Phone: 08-17-2019 08:29-0400 BMI (Body Mass Index) 37.3 kg/m2 [facility] Work Phone: 08-17-2019 08:29-0400 Body Temperature 97.9 [degF] [facility] Work Phone: 08-17-2019 08:29-0400 Body weight 111.[address] [facility] Work Phone: 08-17-2019 08:29-0400 BP Diastolic 80 mm[Hg] [facility] Work Phone: 08-17-2019 08:29-0400 BP Systolic 120 mm[Hg] [facility] Work Phone: 08-17-2019 08:29-0400 BSA (Body Surface Area) 2.[address] [facility] Work Phone: 08-17-2019 08:29-0400 Height 172.[address] [facility] Work Phone: 08-17-2019 08:29-0400 Pulse (Heart Rate) 68 /min [facility] Work Phone: 08-17-2019 08:29-0400 Pulse Oximetry 98 % [facility] Work Phone: 08-17-2019 08:29-0400 Respiratory Rate 18 /min [facility] Work Phone: 07-20-2019 08:36-0500 BMI (Body Mass Index) 39 kg/m2 [facility] Work Phone: 07-20-2019 08:36-0500 Body Temperature 98.4 [degF] [facility] Work Phone: 07-20-2019 08:36-0500 Body weight 116.[address] [facility] Work Phone: 07-20-2019 08:36-0500 BP Diastolic 80 mm[Hg] [facility] Work Phone: 07-20-2019 08:36-0500 BP Systolic 120 mm[Hg] [facility] Work Phone: 07-20-2019 08:36-0500 BSA (Body Surface Area) 2.[address] [facility] Work Phone: 07-20-2019 08:36-0500 Height 172.[address] [facility] Work Phone: 07-20-2019 08:36-0500 Pulse (Heart Rate) 87 /min [facility] Work Phone: 07-20-2019 08:36-0500 Pulse Oximetry 97 % [facility] Work Phone: 07-20-2019 08:36-0500 Respiratory Rate 18 /min [facility] Work Phone: 07-06-2019 08:43-0500 BMI (Body Mass Index) 39.7 kg/m2 [facility] Work Phone: 07-06-2019 08:43-0500 Body Temperature 97.3 [degF] [facility] Work Phone: 07-06-2019 08:43-0500 Body weight 118.[address] [facility] Work Phone: 07-06-2019 08:43-0500 BP Diastolic 82 mm[Hg] [facility] Work Phone: 07-06-2019 08:43-0500 BP Systolic 122 mm[Hg] [facility] Work Phone: 07-06-2019 08:43-0500 BSA (Body Surface Area) 2.[address] [facility] Work Phone: 07-06-2019 08:43-0500 Height 172.[address] [facility] Work Phone: 07-06-2019 08:43-0500 Pulse (Heart Rate) 78 /min [facility] Work Phone: 07-06-2019 08:43-0500 Pulse Oximetry 98 % [facility] Work Phone: 07-06-2019 08:43-0500 Respiratory Rate 18 /min [facility] Work Phone: Encounters Encounter Date Encounter Type Care Provider Facility Start: 02-16-2025 End: 02-16-2025 Clinisync Result Encounter Aditya Cervantes Work Phone: [facility] Unsolicited Start: 02-16-2025 End: 02-16-2025 Clinisync Result Encounter Aditya Billy DO Work Phone: [facility] Unsolicited Start: 02-13-2025 End: 02-13-2025 Bamboo flowsheet Aditya Billy DO Work Phone: [facility] Start: 02-13-2025 End: 02-13-2025 Bamboo flowsheet Aditya Billy DO Work Phone: [facility] Start: 02-13-2025 End: 02-13-2025 Clinisync Result Encounter Aditya Billy DO Work Phone: [facility] Unsolicited Start: 02-13-2025 End: 02-13-2025 ambulatory ADITYA BILLY Not Available Start: 02-13-2025 End: 02-13-2025 Office outpatient visit 15 minutes Aditya Billy DO Work Phone: [facility] Comment on above: 37 weeks gestation o f ([facility]); Third trimester ([facility]); Gestational diabetes mellitus (GDM), antepartum, gestational diabetes method of control unspecified ([facility]); Hyperglycemia during ([facility]) Start: 02-09-2025 End: 02-09-2025 Clinisync Result Encounter [...] Comment on above: Third trimester preg robson ([facility]); 36 weeks gestation of ([facility]) Start: 02-06-2025 End: 02-06-2025 ambulatory ADITYA BILLY [...] 01-23-2025 Bamboo flowsheet Latasha KULKARNI Work Phone: [facility] Start: 01-23-2025 End: 01-23-2025 Bamboo flowsheet Latasha KULKARNI Work Phone: [facility] Start: 01-23-2025 End: 01-23-2025 Office outpatient visit 15 minutes Latasha KULKARNI Work Phone: [facility] Comment on above: Third trimester preg robson ([facility]); 34 weeks gestation of ([facility]) Start: 01-23-2025 End: 01-23-2025 ambulatory LATASHA PADGETT [...] flowsheet Aditya Billy DO Work Phone: [facility] Start: 01-09-2025 End: 01-09-2025 Office outpatient visit 15 minutes Aditya Billy DO Work Phone: [facility] Comment on above: Third trimester preg robson ([facility]); 32 weeks gestation of ([facility]); Gestational diabetes mellitus (GDM), antepartum, gestational diabetes method of control unspecified ([facility]); Hyperglycemia during ([facility]) Start: 01-09-2025 End: 01-09-2025 ambulatory ADITYA BILLY Not Available Start: 12-27-2024 End: 12-27-2024 Bamboo flowsheet Latasha KULKARNI Work Phone: [facility] Start: 12-27-2024 End: 12-27-2024 Bamboo flowsheet Latasha KULKARNI Work Phone: [facility] Start: 12-27-2024 End: 12-27-2024 ambulatory ADITYA BILLY Not Available Start: 12-27-2024 End: 12-27-2024 Office outpatient visit 15 minutes Latasha KULKARNI Work Phone: [facility] Comment on above: Third trimester preg robson ([facility]) Start: 12-13-2024 End: 12-13-2024 ambulatory ADITYA BILLY Not Available Start: 12-13-2024 End: 12-13-2024 Office outpatient visit 15 minutes Aditya Billy DO Work Phone: [facility] Comment on above: Elevated glucose rikki erance test; History of gestational diabetes; Third trimester ([facility]); 28 weeks gestation of ([facility]); Gestational diabetes mellitus (GDM), antepartum, gestational diabetes method of control unspecified ([facility]) Start: 12-12-2024 End: 12-12-2024 Clinisync Result Encounter Adiyta Billy DO Work Phone: [facility] [...] (Primary D x); 25 weeks gestation of ([facility]); Second trimester ([facility]); History of gestational diabetes; Diabetes mellitus screening [...] Start: 10-17-2024 End: 10-17-2024 ambulatory ADITYA CERVANTES [facility] Start: 10-17-2024 End: 10-17-2024 Subsequent hospital visit by physician Miguel Stewart CNP Work Phone: [facility] Start: 09-26-2024 End: 09-26-2024 Bamboo flowsheet Aditya Billy DO Work Phone: [facility] Start: 09-26-2024 End: 09-28-2024 Bamboo flowsheet Aditya Billy DO Work Phone: [facility] Start: 09-26-2024 End: 09-28-2024 Clinisync Result Encounter Aditya Billy DO Work Phone: [facility] External Department Unsolicited Start: 09-26-2024 End: 09-26-2024 ambulatory ADITYA GUEVARAO Not Available Start: 09-26-2024 End: 09-26-2024 Patient encounter procedure Aditya Billy DO Work Phone: [facility] Start: 09-26-2024 End: 09-26-2024 Periodic preventive [...] 06-14-2024 Bamboo flowsheet Latasha KULKARNI Work Phone: [facility] Start: 06-14-2024 End: 06-14-2024 Bamboo flowsheet Latasha KULKARNI Work Phone: [facility] Start: 06-14-2024 End: 06-14-2024 ambulatory LATASHA PADGETT Not Available Start: 06-14-2024 End: 06-14-2024 Office outpatient visit 15 minutes Latasha KULKARNI Work Phone: [facility] Comment on above: Encounter for weight management Start: 05-17-2024 End: 05-17-2024 Bamboo flowsheet Latasha KULKARNI Work Phone: [facility] Start: 05-17-2024 End: 05-17-2024 [...] Available Start: 07-15-2023 End: 07-15-2023 flow sheet Adityamaame Cervantes Work Phone: [facility] Comment on above: Second trimester pre gnancy Start: 01-01-2023 End: 01-01-2023 Patient encounter procedure Miguel Stewart CNP Work Phone: [email or web address] Start: 01-01-2023 End: 01-01-2023 Subsequent hospital visit by physician Miguel Stewart CNP Work Phone: [facility] Comment on above: Women's annual routi ne gynecological examination Start: 12-16-2021 End: 12-16-2021 Subsequent hospital visit by physician Miguel Stewart CNP Work Phone: [facility] Start: 12-04-2021 Split Srvc Shona Jenkins rne Other [facility] Start: 10-02-2021 End: 10-02-2021 Patient encounter procedure Miguelcristal Holley IOANA - APPRENTICE ELECTRICIAN Work Phone: [facility] Start: 10-02-2021 End: 10-02-2021 Subsequent hospital visit by physician Miguel Holley APRN - APPRENTICE ELECTRICIAN Work Phone: [facility] Comment on above: Women's annual routi ne gynecological examination Start: 10-14-2020 End: 10-15-2020 Emergency department patient visit Donnypatrick Hatfield Work Phone: [place] [facility] Comment on above: Nausea vomiting and diarrhea (Primary Dx); Generalized abdominal pain Start: 09-23-2020 End: 09-24-2020 [facility] Start: 09-23-2020 End: 09-23-2020 Subsequent hospital visit by physician Miguel Holley APRN - APPRENTICE ELECTRICIAN Work Phone: [facility] Start: 09-23-2020 End: 09-23-2020 General Jammie Javier RODAS Work Phone: [facility] Work Phone: Start: 09-23-2020 End: 09-23-2020 Adult health examination Miguel Holley DIANELYS Work Phone: [facility] Work Phone: Start: 09-23-2020 End: 09-23-2020 FQHC visit, estab pt Miguel Leydi IVORY Work Phone: [facility] Work Phone: Start: 04-08-2020 End: 04-08-2020 Emergency department patient visit [facility] ED Comment on above: COVID-19 (Primary Dx ); Fatty liver Start: 03-19-2020 End: 03-19-2020 Telemedicine consultation with patient Miguel Holley Work Phone: [facility] Work Phone: Start: 03-05-2020 End: 03-05-2020 Established patient Miguel Holley Work Phone: [facility] Work Phone: Start: 12-05-2019 End: 12-05-2019 Established patient Poly Franco Work Phone: [facility] Work Phone: Start: 11-06-2019 End: 11-06-2019 Established patient Poly Franco Work Phone: [facility] Work Phone: Start: 10-12-2019 End: 10-12-2019 Patient encounter procedure Paty Rupal Work Phone: [facility] Work Phone: Start: 10-12-2019 End: 10-12-2019 Established patient Poly Franco Work Phone: [facility] Work Phone: Start: 09-14-2019 End: 09-14-2019 Established patient Poly Franco Work Phone: [facility] Work Phone: Start: 09-11-2019 End: 09-11-2019 Telemedicine consultation with patient Poly Franco Work Phone: [facility] Work Phone: Start: 09-05-2019 End: 09-05-2019 Telemedicine consultation with patient Poly Franco Work Phone: [facility] Work Phone: Start: 08-17-2019 End: 09-11-2019 Telemedicine consultation with patient Poly Franco Work Phone: [facility] Work Phone: Start: 08-17-2019 End: 08-17-2019 Established patient Miguel Holley Work Phone: [facility] Work Phone: Start: 07-20-2019 End: 07-20-2019 Established patient Miguel Holley Work Phone: [facility] Work Phone: Start: 07-06-2019 End: 07-06-2019 Subsequent hospital visit by physician Jackson [facility] Start: 07-06-2019 End: 07-06-2019 Established patient Anh Virk Work Phone: [facility] Work Phone: Start: 07-06-2019 End: 07-06-2019 New patient Allyson Floyd Work Phone: [facility] Work Phone: Start: 02-02-2019 End: 02-04-2019 Subsequent hospital visit by physician [facility] Ultrasound Room [facility] Ultrasound Comment on above: Encounter for intrau terine device placement Start: 08-21-2018 End: 08-23-2018 Patient encounter procedure [facility] Start: 01-04-2017 End: 01-04-2017 Emergency department patient visit [address] [facility] Facility:[id number] Procedures Date Procedure Procedure Detail Performing Clinician Start: 02-16-2025 US OB BPP W NON-STRESS Aditya Billy DO Work Phone: Start: 02-13-2025 US OB BPP W NON-STRESS [...] by Cyto stain Miguel Holley APRN - APPRENTICE ELECTRICIAN Work Phone: Start: 12-16-2021 Assay of blood/uric acid Dedrick Wood PA-C Work Phone: Start: 12-16-2021 C-reactive protein Robel Wood PA-C Work Phone: Start: 12-04-2021 Nerve conduction heaven dies 9-10 studies Shona Lucio Start: 10-02-2021 Microscopic observat ion [Identifier] in Cervix by Cyto stain Miguel Holley ENVIRONMENTAL ECONOMIST - APPRENTICE ELECTRICIAN Work Phone: Start: 10-15-2020 Urinalysis microscop ic [...] pressure < 80 mm hg Miguel Holley APPRENTICE ELECTRICIAN Work Phone: Start: 09-23-2020 Most recent systolic blood pressure <130 mm hg Miguel Holley APPRENTICE ELECTRICIAN Work Phone: Start: 09-23-2020 Pt-focused hlth risk assmt score doc stnd instrm Miguel Holley APPRENTICE ELECTRICIAN Work Phone: Start: 09-23-2020 Antibody hiv-1&hiv-2 single result Miguel Holley APPRENTICE ELECTRICIAN Work Phone: Start: 09-23-2020 Comprehensive metabo lic panel Miguel Holley ENVIRONMENTAL ECONOMIST - APPRENTICE ELECTRICIAN Work Phone: Start: 04-08-2020 Ct thorax w/contrast material Ninoska Marianne Work Phone: Start: 04-08-2020 [facility] Work Phone: Start: 04-08-2020 Urine test visual color cmprsn meths Ninoska Marianne Work Phone: Start: 04-08-2020 Assay of troponin quantitative Ninoska Marianne Work Phone: Start: 04-08-2020 Blood count complete automated Ninoska Marianne Work Phone: Start: 04-08-2020 Comprehensive metabo lic panel Ninoska Marianne Work Phone: Start: 04-08-2020 Natriuretic peptide [facility] Work Phone: Start: 04-08-2020 Prothrombin time Surry Marianne Work Phone: Start: 04-08-2020 Thromboplastin time partial plasma/whole blood Ninoska Marianne Work Phone: Start: 12-05-2019 Diast bp <80 mm hg Poly Franco Work Phone: Start: 12-05-2019 Syst bp lt [address] Franco Work Phone: Start: 11-06-2019 Diast bp 80-[address] Franco Work Phone: Start: 11-06-2019 Syst bp [...] 08-17-2019 Syst bp lt 130 mm hg Zandra arrington Leydi Work Phone: Start: 07-06-2019 Hemoglobin glycosyla [...] by Cyto stain Miguel Holley APRN - APPRENTICE ELECTRICIAN Work Phone: H/O: section S/P jose carlos [...] malign ant neoplasm of cervix Pap smear [facility] Start: 02-28-2025 End: 02-28-2025 Patient encounter procedure 02/28/2025 9:50 AM EDT Office Visit [facility] [address] [facility] [facility] [place] [phone] Nedra Raymond, DANCE MASTER [address] [place] [phone] [facility] Start: 02-13-2025 End: 02-13-2025 Patient encounter procedure 02/13/2025 9:10 AM EDT Routine [facility] [address] [facility] [facility] [place] [phone] Aditya Cervantes, DO [address] [place] [address] [facility] Start: 02-07-2025 End: 02-07-2025 Patient encounter procedure 02/07/2025 10:50 AM EDT Routine [facility] [address] [place] [phone] Aditya Cervantes, DO [address] [place], [place] [id number] [facility] Start: 02-06-2025 End: 02-06-2026 CULTURE, GROUP B STREP WITH SUSCEPTIBLITY CULTURE, GROUP B STREP WITH SUSCEPTIBLITY Lab Routine Third trimester ([facility]) Expected: 02/06/2025, Expires: 02/06/2026 [facility] Work Phone: Comment on above: Expected: 02/06/2025 , Expires: 02/06/2026 Start: 02-06-2025 End: 02-06-2025 Patient encounter procedure [facility] Comment on above: Arrived Start: 01-29-2025 Influenza vaccination Influenza Vacc ine (#1) [facility] Start: 01-23-2025 End: 01-23-2025 Patient encounter procedure [facility] Comment on above: Arrived Start: 01-10-2025 End: 01-10-2025 Patient encounter procedure 01/10/2025 1:00 PM EDT Routine [facility] [place] [facility] [address] [place] [phone] Aditya Cervantes DO [address] [place] [address] [facility] Start: 01-09-2025 End: 07-12-2025 US biophysical profile w non stress test US biophysical profile w non stress test Imaging Routine Hyperglycemia during ([facility]) Expected: 01/09/2025 (Approximate), Expires: 07/12/2025 [facility] Work Phone: Comment on above: Expected: 01/09/2025 (Approximate), Expires: 07/12/2025 Start: 01-09-2025 End: 01-09-2025 Patient encounter procedure [facility] Comment on above: Arrived Start: 12-29-2024 Influenza vaccination Flu vacc ine (Season Ended) [facility] Start: 12-27-2024 End: 12-27-2024 Professional / ancillary services management [facility] Start: 12-27-2024 End: 12-27-2024 Patient encounter procedure 12/27/2024 10:20 AM EDT Routine [facility] [address] [place] [phone] Latasha Padgett PA [address] [place] [address] [facility] Start: 12-13-2024 End: 12-13-2024 Patient encounter procedure 12/13/2024 1:40 PM EDT Routine [facility] [address] [place] [phone] Aditya Cervantes DO [address] [place] [address] [facility] Start: 12-06-2024 End: 12-06-2025 Measurement of glucose 3 hours after glucose challenge for glucose tolerance test Glucose tolerance, 3 hours Lab Routine Elevated glucose tolerance test Expected: 12/06/2024 (Approximate), Expires: 12/06/2025 [facility] Work Phone: Comment on above: Expected: 12/06/2024 (Approximate), Expires: 12/06/2025 Start: 11-22-2024 End: 11-22-2025 12 lead ECG ECG 12 lead unit performed ECG Routine Dizziness Expected: 11/22/2024 (Approximate), Expires: 11/22/2025 [facility] Work Phone: Comment on above: Expected: 11/22/2024 (Approximate), Expires: 11/22/2025 Start: 11-22-2024 End: 11-22-2025 CBC panel - Blood by Automated count CBC Lab Routine Diabetes mellitus screening Expected: 11/22/2024 (Approximate), Expires: 11/22/2025 [facility] Work Phone: Comment on above: Expected: 11/22/2024 (Approximate), Expires: 11/22/2025 Start: 11-22-2024 End: 11-22-2025 Measurement of glucose 1 hour after glucose challenge for glucose tolerance test Glucose tolerance, 1 hour Lab Routine Diabetes mellitus screening Expected: 11/22/2024 (Approximate), Expires: 11/22/2025 [facility] Comment on above: Expected: 11/22/2024 (Approximate), Expires: 11/22/2025 Start: 11-22-2024 End: 11-22-2024 Patient encounter procedure 11/22/2024 1:50 PM EDT Routine [facility] [address] [place] [phone] Aditya Cervantes DO [address] [place] [address] [facility] Start: 10-25-2024 End: 10-25-2024 Patient encounter procedure 10/25/2024 9:30 AM EDT Routine [facility] [address] [facility] [facility] [place] [phone] Latasha Padgett PA [address] [place] [address] [facility] Start: 10-25-2024 End: 10-25-2024 Professional / ancillary services management 10/25/2024 8:00 AM EDT Ancillary Procedure [facility] [address] [facility] [place] [phone] [facility] Start: 10-02-2024 Screening for malign ant neoplasm of cervix Pap smear [facility] Start: 09-26-2024 End: 11-26-2024 Alpha fetoprotein, maternal Alpha fetoprotein, maternal Lab Routine 17 weeks gestation of Expected: 09/26/2024 (Approximate), Expires: 11/26/2024 [facility] Comment on above: Expected: 09/26/2024 (Approximate), Expires: 11/26/2024 Start: 09-26-2024 End: 12-26-2024 US for US OB 14+ weeks anatomy scan Imaging Routine Screening, , for anatomic survey Expected: 09/26/2024, Expires: 12/26/2024 [facility] Comment on above: Expected: 09/26/2024 , Expires: 12/26/2024 Start: 09-26-2024 End: 09-26-2024 Patient encounter procedure 09/26/2024 9:50 AM EDT Routine [facility] [address] [place] [address] Aditya Cervantes, DO [address] [place] [address] [facility] Start: 08-29-2024 End: 08-29-2024 Patient encounter procedure 08/29/2024 9:20 AM EDT Routine [facility] [address] [place] [phone] Aditya Cervantes, DO [address] [place] [address] Arrived [facility] Comment on above: Arrived Start: 08-04-2024 End: 08-04-2024 ambulatory 08/04/2024 9:00 AM EST Initial [facility] [address] [place] [address] [facility] Start: 08-04-2024 End: 08-04-2024 Professional / ancillary services management 08/04/2024 8:30 AM EST Ancillary Procedure [facility] [address] [place] [address] [facility] Start: 07-12-2024 End: 07-12-2024 Patient encounter procedure 07/12/2024 8:30 AM EST Office Visit [facility] [address] [place] [address] Latasha Padgett PA [address] [place] [address] [facility] Start: 05-17-2024 End: 05-17-2024 Patient encounter procedure [facility] Comment on above: Arrived Start: 05-10-2024 End: 05-10-2024 Patient encounter procedure 05/10/2024 8:40 AM EST Office Visit [facility] [address] [facility] [facility] [place] [phone] Latasha Padgett PA [address] [place], [place] [address] [place] [address] [facility] Start: 01-30-2024 COVID-19 Vaccine ( season) COVID-19 Vaccine ( season) [facility] Start: 01-30-2024 Influenza vaccination Influenza Vacc ine (#1) [facility] Start: 08-19-2023 End: 08-19-2023 Patient encounter procedure 08/19/2023 11:00 AM EDT Routine [facility] [address] [facility] [place] [phone] Latasha Padgett, PA [address] [place] [address] [facility] Start: 08-19-2023 End: 08-19-2023 Professional / ancillary services management 08/19/2023 10:00 AM EDT Ancillary Procedure [facility] [address] [place] [phone] [facility] Start: 01-20-2023 End: 01-20-2023 Admission to same day surgery center 01/20/2023 Surgery IP Unit Mychal Nichols MD [address] [place] [address] [place] [address] HYSTEROSCOPY - IUD REMOVAL [facility] Comment on above: HYSTEROSCOPY - IUD R EMOVAL Start: 01-20-2023 End: 01-20-2023 Hysteroscopy removal impacted foreign body HYSTEROSCOPY Intrauterine contraceptive device threads lost, initial encounter 01/20/2023 11:10 AM EDT [facility] Start: 01-20-2023 Subsequent hospital visit by physician 01/20/2023 Hospital Encounter IP Unit Mychal Nichols MD [address] [place] [address] [facility] Start: 12-29-2022 Influenza vaccination Flu vaccine (# 1) [facility] Start: 04-27-2022 End: 04-27-2022 Patient encounter procedure [facility] Start: 01-29-2022 Influenza vaccination [facility] Start: 02-07-2021 Cervical cancer screen Cervical canc er screen [place], [place] Start: 02-07-2021 Screening for malign ant neoplasm of cervix [facility] Start: 01-29-2021 Influenza vaccination Flu vacc ine (Season Ended) [facility] Work Phone: Start: 09-30-2020 CBC W Auto Different ial panel - Blood [facility] Start: 09-30-2020 Lipid 1996 panel - Serum or Plasma LIPID PROFILE [facility] Start: 09-23-2020 [facility] Work Phone: Comment on above: Note: Please make a referral to: Start: 03-26-2020 SARS-CoV-2, KAILA [facility] Work Phone: Start: 03-19-[address] Drive up Testing [facility] Work Phone: Start: 02-06-2020 Medical Establ ished Patient [facility] Work Phone: Start: 01-30-2020 Influenza vaccination Flu vaccine (# 1) [place], [place] Start: 11-09-2019 Medical Establ ished Patient [facility] Work Phone: Start: 10-11-2019 Medical Establ ished Patient [facility] Work Phone: Start: 09-14-2019 Medical Establ ished Patient [facility] Work Phone: Start: 08-17-2019 Medical Establ ished Patient [facility] Work Phone: Start: 07-20-2019 Medical Establ ished Patient [facility] Work Phone: Start: 07-13-2019 Lipid 1996 panel [facility] Work Phone: Start: 02-14-2019 End: 02-14-2019 Office Visit 02/14/2019 Office Visit Obstetrics and Gynecology FrankPilar ENVIRONMENTAL ECONOMIST - CN [address] [id number] [phone] [facility] VISCERA WASHER Start: 02-07-2019 Chlamydia screen Chlamydia screen [place], [place] Start: 02-07-2019 Screening for Chlamy valentino trachomatis Chlamydia screen [facility] Start: 01-29-2019 Influenza vaccination Flu vaccine (# 1) [place], [place] Start: 10-29-2017 DTaP/Tdap/Td vaccine (2 - Td or Tdap) DTaP/Tdap/Td vaccine (2 - Td or Tdap) [facility] Start: 10-29-2017 DTaP/Tdap/Td vaccine (2 - Td) DTaP/Tdap/Td vaccine (2 - Td) [place], [place] Start: 2015 Hepatitis B vaccine (1 of 3 - 19+ 3-dose series) Hepatitis B vaccine (1 of 3 - 19+ 3-dose series) [facility] Start: 2014 Hepatitis C screening Hepatitis C sc reen [facility] Start: 2012 COVID-19 Vaccine (1) COVID-19 Vaccin e (1) [facility] Work Phone: Start: 2011 HIV screen HIV screen [place], [place] Start: 2011 HIV screening HIV screen [facility] Start: 2011 HPV vaccine (1 - Fem shiela 3-dose series) HPV vaccine (1 - Female 3-dose series) [place], [place] Start: 2009 Varicella Vaccine (1 of 2 - 13+ 2-dose series) Varicella Vaccine (1 of 2 - 13+ 2-dose series) [facility] Start: 2008 COVID-19 Vaccine (1) COVID-19 Vaccin e (1) [facility] Phone: Start: 2008 Depression Screen Depression Screen [facility] Start: 2007 HPV vaccine (1 - 2-d ose series) HPV vaccine (1 - 2-dose series) [facility] Start: 2007 HPV vaccine (1 - Fem shiela 2-dose series) HPV vaccine (1 - Female 2-dose series) [facility] Phone: Start: 2001 COVID-19 Vaccine (1) COVID-19 Vaccin e (1) [facility] Start: 1997 Varicella vaccine (1 of 2 - 2-dose childhood series) Varicella vaccine (1 of 2 - 2-dose childhood series) [facility] Start: 1996 COVID-19 Vaccine (#1) COVID-19 Vacci ne (#1) [facility] Start: 1996 Hepatitis C screening Hepatitis C sc reen [facility] Phone: End: 10-17-2024 Alpha Fetoprotein, Maternal [facility] [employer] Phone: Comment on above: Once for 1 Occurrenc es starting 10/17/2024 until 10/17/2024 End: 12-16-2021 GLENNY Screen with Reflex [facility] [employer] Phone: Comment on above: Once for 1 Occurrenc es starting 12/16/2021 until 12/16/2021 CHLAMYDIA TRACHOMATI S (GENITO/STI) CHLAMYDIA TRACHOMATIS (GENITO/STI) Lab Routine STD exposure Vaginal discharge Ordered: 09/26/2024 [facility] Comment on above: Ordered: 09/26/2024 Cytology Cervical or vaginal smear or scraping study Pap Smear Pathology and Cytology Routine Well woman exam with routine gynecological exam Ordered: 09/26/2024 [facility] Comment on above: Ordered: 09/26/2024 End: 10-02-2021 Cytopathology procedure, preparation of smear, genital source PAP SMEAR Lab Routine Women's annual routine gynecological examination 1 Occurrences starting 10/02/2021 until 10/02/2021 [facility] Phone: Comment on above: 1 Occurrences starti ng 10/02/2021 until 10/02/2021 End: 01-01-2023 Cytopathology procedure, preparation of smear, genital source PAP SMEAR Lab Routine Women's annual routine gynecological examination 1 Occurrences starting 01/01/2023 until 01/01/2023 [facility] Phone: Comment on above: 1 Occurrences starti ng 01/01/2023 until 01/01/2023 End: 12-16-2021 HLA-B27 Antigen [facility] Phone: Comment on above: Once for 1 Occurrenc es starting 12/16/2021 until 12/16/2021 End: 07-06-2019 Insulin, free Insulin, free Lab Routine Once for 1 Occurrences starting 07/06/2019 until 07/06/2019 [facility] Phone: Comment on above: Once for 1 Occurrenc es starting 07/06/2019 until 07/06/2019 Insulin, free Insulin, free La b Routine 07/06/2019 9:31 AM EST [facility] Phone: End: 12-16-2021 Lyme Ab [facility] [employer] Phone: Comment on above: Once for 1 Occurrenc es starting 12/16/2021 until 12/16/2021 Neisseria gonorrhoea e DNA [Presence] in Unspecified specimen by KAILA with probe detection Neisseria gonorrhea DNA probe, direct Lab Routine STD exposure Vaginal discharge Ordered: 09/26/2024 [facility] Comment on above: Ordered: 09/26/2024 SURESWAB(R) ADVANCED VAGINITIS PLUS, TMA SURESWAB(R) ADVANCED VAGINITIS PLUS, TMA Pathology and Cytology Routine STD exposure Vaginal discharge Ordered: 09/26/2024 [facility] Work Phone: Comment on above: Ordered: 09/26/2024 End: 02-13-2025 US for US OB follow up transabdominal approach Imaging Routine Elevated glucose tolerance test Gestational diabetes mellitus (GDM), antepartum, gestational diabetes method of control unspecified ([facility]) q4 weeks for 4 Occurrences starting 12/13/2024 until 02/13/2025 [facility] Comment on above: q4 weeks for 4 Occur rences starting 12/13/2024 until 02/13/2025 Immunizations Immunization Date Immunization Notes Care Provider Em jigneshbisi 10-30-2007 tetanus toxoid, redu katelyn diphtheria toxoid, and acellular pertussis vaccine, adsorbed Mth Room [facility] Payers Date Payer Category Payer Medicaid [id number] 2023 Medicaid [id number] .[id number] 2023 Unknown [facility] [id number] 2023-Present [address] [address] [place] [address] [id number] .[id number] 2022 Unknown [employer] [place] [address] [id number] 2022-Present [address] [place] [address] [id number] .[id number] 2018 Unknown [id number] 2.16.840.1.199080.3.140.1.729 99.5.10.6.3 2016 Unknown [employer] [address] xxxxxxxxxxxx 2016-Present [phone] [address] [place] [address] xxxxxxxxxxxx [id number] .[id number] 1996 Unknown [id number] 2.16.840.1.562565.3.579.2.175 1996 Unknown [id number] 2.16.840.1.547278.3.579.2.173 1996 Unknown [id number] 2.16.840.1.356182.3.579.2.125 9 1996 Unknown [id number] 2.16.840.1.897696.3.579.2.125 9 1996 Unknown [id number] 2.16.840.1.078110.3.579.2.125 9 1996 Unknown [id number] 2.16.840.1.455737.3.579.2.125 9 1996 Unknown [id number] 2.16.840.1.844366.3.579.2.125 9 1996 Unknown [id number] 2.16.840.1.518260.3.579.2.125 9 1996 Unknown [id number] 2.16840.1.426773.3.579.2.125 9 1996 Unknown [id number] 2.16.840.1.437351.3.579.2.125 9 1996 Unknown [id number] 2.16.840.1.390574.3.579.2.125 9 1996 Unknown [id number] 2.16.840.1.562131.3.579.2.125 9 1996 Unknown [id number] 2.16840.1.123991.3.579.2.125 9 1996 Unknown [id number] 2.16.840.1.503632.3.579.2.125 9 1996 Unknown [id number] 2.16.840.1.153936.3.579.2.125 9 1996 Unknown [id number] 2.16.840.1.293472.3.579.2.125 9 1996 Unknown [id number] 2.16.840.1.957043.3.579.2.125 9 1996 Unknown [id number] 2.16.840.1.882584.3.579.2.125 9 1996 Unknown [id number] 2.16.840.1.245633.3.579.2.125 9 1996 Unknown [id number] 2.16.840.1.898419.3.579.2.125 9 Unknown [id number] 2.16.840.1.883205.3.441 Social History Date Type Detail Facility Assertion [facility] Work Phone: Assertion Emotional stress (finding) [facility] Work Phone: Tobacco smoking status Unknown if ever smoked [facility] Assertion Sexually active (finding) [facility] Work Phone: Assertion Gender identity finding (finding) [facility] Work Phone: Assertion Finding of sexua l orientation (finding) [facility] Work Phone: Start: 02-07-2018 End: 01-06-2023 Tobacco smoking status NHIS Never smoker [facility] [place] Start: 02-07-2018 End: 01-20-2023 Alcohol intake Current drinker of alcohol (finding) [facility] [employer] Work Phone: Start: 12-12-2015 Alcohol Comment occassionally [place], [place] Start: 1996 Sex Assigned At Not on file [place] Start: 04-08-2020 End: 01-06-2023 Tobacco use and exposure Never used [place] Exposure to SARS-CoV-2 (event) Not sure [place] Start: 02-07-2018 End: 01-20-2023 Alcohol intake Yes [place] Assertion Family illness (situation) [facility] Work Phone: Assertion Single person (finding) [facility] Work Phone: Start: *Tobacco [facility] Start: 04-15-2023 DENISE angulo Start: 01-20-2023 History of Social function [facility] Start: 10-12-2013 Sex Female (finding) [facility] NEGATED: Highlighted row Assertion Exposure to pollution (event) [facility] Work Phone: NEGATED: Highlighted row Assertion Tobacco user (finding) [facility] Work Phone: NEGATED: Highlighted row Assertion Current drinker of alcohol (finding) [facility] Work Phone: NEGATED: Highlighted row Assertion Finding relating to drug misuse behavior (finding) [facility] Work Phone: Mental Status Date Assessment Result Facility Cognitive function Cognitive fun ctioning was normal Cognitive function finding (finding) [facility] Work Phone: Clinical Notes 11-06-2019 [...] Excessive growth affecting management of mother, antepartum ([facility]) 12/06/2023 Third trimester ([facility]) 12/06/2023 No Additional Past Medical History HISTORY [...] nursing note reviewed. Exam conducted with a network systems analyst present. Vitals: Estimated body mass index is 43.54 kg/m as calculated from the following: Height as of 24: 5' 7 . Weight as of this encounter: 278 lb. BP: 128/80 No LMP recorded. Patient is . ASSESSMENT & PLAN ICD-10-CM 1. 37 weeks gestation of ([facility]) Z3A.37 POCT urinalysis dipstick manually resulted 2. Third trimester ([facility]) Z34.93 POCT urinalysis dipstick manually resulted 3. Gestational diabetes mellitus (GDM), antepartum, gestational diabetes method of control unspecified ([facility]) O24.419 4. Hyperglycemia during ([facility]) O99.810 Return OB: Patient presents today for [...] Aditya Cervantes DO documented in this encounter [facility] 02-06-2025 History of Presen t illness [...] Excessive growth affecting management of mother, antepartum ([facility]) 12/06/2023 Third trimester ([facility]) 12/06/2023 No Additional Past Medical History HISTORY [...] nursing note reviewed. Exam conducted with a network systems analyst present. Vitals: Estimated body mass index is 43.38 kg/m as calculated from the following: Height as of 01/10/24: 5' 7 . Weight as of this encounter: 277 lb. BP: 126/78 No LMP recorded. Patient is . ASSESSMENT & PLAN ICD-10-CM 1. Third trimester ([facility]) Z34.93 POCT urinalysis dipstick manually resulted CULTURE, GROUP B STREP WITH SUSCEPTIBLITY CULTURE, GROUP B STREP WITH SUSCEPTIBLITY 2. 36 weeks gestation of ([facility]) Z3A.36 Patient is doing well but has [...] Aditya Cervantes DO documented in this encounter [facility] 01-23-2025 History of Presen t illness [...] Excessive growth affecting management of mother, antepartum ([facility]) 12/06/2023 Third trimester ([facility]) 12/06/2023 No Additional Past Medical History HISTORY [...] ASSESSMENT & PLAN ICD-10-CM 1. Third trimester ([facility]) Z34.93 CANCELED: POCT urinalysis dipstick manually resulted 2. 34 weeks gestation of ([facility]) Z3A.34 CANCELED: POCT urinalysis dipstick manually resulted [...] of: CAYLA Kwok documented in this encounter [facility] 01-09-2025 History of Presen t illness [...] Excessive growth affecting management of mother, antepartum ([facility]) 12/06/2023 Third trimester ([facility]) 12/06/2023 No Additional Past Medical History Family [...] nursing note reviewed. Exam conducted with a network systems analyst present. Vitals: Estimated body mass index is 42.88 kg/m as calculated from the following: Height as of 24: 5' 7 . Weight as of 12/27/24: 273 lb 12.8 oz. BP: No LMP recorded. Patient is . Assessment/Plan Encounter Diagnosis: ICD-10-CM 1. Third trimester ([facility]) Z34.93 POCT urinalysis dipstick manually resulted 2. 32 weeks gestation of ([facility]) Z3A.32 3. Gestational diabetes mellitus (GDM), antepartum, gestational diabetes method of control unspecified ([facility]) O24.419 4. Hyperglycemia during ([facility]) O99.810 US biophysical profile w non stress [...] Aditya Cervantes DO documented in this encounter [facility] 12-27-2024 History of Presen t illness [...] Excessive growth affecting management of mother, antepartum ([facility]) 12/06/2023 Third trimester ([facility]) 12/06/2023 No Additional Past Medical History HISTORY [...] nursing note reviewed. Exam conducted with a network systems analyst present. Vitals: Estimated body mass index is 42.88 kg/m as calculated from the following: Height as of 01/09/24: 5' 7 . Weight as of this encounter: 273 lb 12.8 oz. BP: 122/74 No LMP recorded. Patient is . ASSESSMENT & PLAN ICD-10-CM 1. Third trimester ([facility]) Z34.93 POCT urinalysis dipstick manually [...] routine OB appointment. documented in this encounter [facility] 12-13-2024 History of Presen t illness [...] Excessive growth affecting management of mother, antepartum ([facility]) 12/06/2023 Third trimester ([facility]) 12/06/2023 No Additional Past Medical History HISTORY [...] of gestational diabetes Z86.32 3. Third trimester ([facility]) Z34.93 POCT urinalysis dipstick manually resulted 4. 28 weeks gestation of ([facility]) Z3A.28 POCT urinalysis dipstick manually resulted Return [...] Aditya Cervantes DO documented in this encounter [facility] 11-22-2024 History of Presen t illness [...] Excessive growth affecting management of mother, antepartum ([facility]) 12/06/2023 Third trimester ([facility]) 12/06/2023 No Additional Past Medical History HISTORY [...] PLAN ICD-10-CM 1. 25 weeks gestation of ([facility]) Z3A.25 POCT urinalysis dipstick manually resulted 2. Second trimester ([facility]) Z34.92 POCT urinalysis dipstick manually resulted 3. [...] Aditya Cervantes DO documented in this encounter [facility] 10-25-2024 History of Presen t illness [...] of: CAYLA Kwok documented in this encounter [facility] 09-26-2024 History of Presen t illness [...] nursing note reviewed. Exam conducted with a network systems analyst present. Vitals: Estimated body mass index [...] Aditya Cervantes DO documented in this encounter [facility] 08-29-2024 History of Presen t illness [...] nursing note reviewed. Exam conducted with a network systems analyst present. Vitals: Estimated body mass index [...] or undercooked meat, and stay away from [facility]. Patient has been consulted regarding any further do's and don'ts of . Patient voiced understanding and all questions and concerns were answered. Orders Placed This Encounter Procedures POCT urinalysis dipstick manually resulted Follow Up: Patient is to return in 4 weeks for routine OB appointment. Documented by Lindsey Dong LPN on behalf of: Aditya Cervantes DO documented in this encounter [facility] 06-14-2024 History of Presen t illness [...] of: CAYLA Kwok documented in this encounter [facility] 05-17-2024 History of Presen t illness [...] of CAYLA Kwok documented in this encounter [facility] 04-18-2024 History of Presen t illness [...] of: CAYLA Kwok documented in this encounter [facility] 02-21-2024 History of Presen t illness [...] of: CAYLA Kwok documented in this encounter [facility] 07-15-2023 History of Presen t illness [...] Aditya Cervantes DO documented in this encounter [facility] 09-23-2020 Evaluation note Includes: Assessments for all patient encounters Findings Anxiety disorder NOS BH Telebehavioral H ealth with Jammie RODAS 09/23/2020 Assessment of visit for: screening for human immunodeficiency virus Medical Established Patient with Miguel Holley [facility] 09/23/2020 Diabetes Risk Test Score was three score 09/23/2020 Medical Established Patient with Miguel Holley [facility] 09/23/2020 Morbid obesity Medical Established Patient with Miguel Holley [facility] 09/23/2020 Routine adult history and physical (18-64 yrs) without abnormal findings Medical Established Patient with Miguel Holley [facility] 09/23/2020 Z68.41 - Body mass index [BMI]40.0-44.9, adult Medical Established Patient with Miguel Holley [facility] 09/23/2020 Cough Telemedicine Establi sted Patient with Miguelcristal Holley [facility] 03/19/2020 Exposure to a viral disease Telemedicine Establisted Patient with Miguel [facility] 03/19/2020 Obesity due to excess calories Telemedic ine Establisted Patient with Miguel Holley [facility] 03/19/2020 Z68.37 - Body mass index [BM I] 37.0-37.9, adult Telemedicine Establisted Patient with Miguel Leydi [facility] 03/19/2020 Obesity due to excess calories Medical E stablished Patient with Miguel Holley [facility] 03/05/2020 Z68.37 - Body mass index [BM I] 37.0-37.9, adult Medical Established Patient with Miguel Holley [facility] 03/05/2020 Obesity due to excess calories Medical E stablished Patient with Polykamryn Wagonerle [facility] 12/05/2019 R21 - Rash and other nonspecific skin eruption Medical Established Patient with Poly Salvador [facility] 12/05/2019 Z68.35 - Body mass index (BM I) 35.0-35.9, adult Medical Established Patient with Poly Salvador [facility] 12/05/2019 Obesity due to excess calories Medical E stablished Patient with Poly Salvador [facility] 11/06/2019 Z68.36 - Body mass index (BM I) 36.0-36.9, adult Medical Established Patient with Poly Salvador [facility] 11/06/2019 Obesity due to excess calories Medical E stablished Patient with Poly Franco [employer] 10/12/2019 Z68.38 - Body mass index (BM I) 38.0-38.9, adult Medical Established Patient with Poly Franco [facility] 10/12/2019 L25.5 - Unspecified contact dermatitis due to plants, except food Medical Established Patient with Poly Franco [facility] 09/14/2019 Obesity due to excess calories Medical E stablished Patient with Poly Franco [facility] 09/14/2019 Z68.37 - Body mass index (BM I) 37.0-37.9, adult Medical Established Patient with Poly Franco [facility] 09/14/2019 L25.5 - Unspecified contact dermatitis due to plants, except food Telemedicine with Poly Franco [facility] 09/11/2019 Obesity due to excess calories Telemedic ine with Poly Franco [facility] 09/11/2019 Z68.37 - Body mass index (BM I) 37.0-37.9, adult Telemedicine with Poly Franco [facility] 09/11/2019 Dermatitis due to contact wi th poison spencer Telemedicine with Poly Franco [facility] 09/05/2019 Obesity due to excess calories Telemedic ine with Poly Franco [facility] 09/05/2019 Z68.37 - Body mass index (BM I) 37.0-37.9, adult Telemedicine with Poly Franco [facility] 09/05/2019 Obesity due to excess calories Medical E stablished Patient with Miguel Holley [facility] 08/17/2019 Z68.37 - Body mass index (BM I) 37.0-37.9, adult Medical Established Patient with Miguel Anguloen [facility] 08/17/2019 Generalized anxiety disorder BH Establis hed Patient with Anh VIDAL 07/06/2019 Anxiety disorder NOS Medical New Patient with Allyson Grafton [employer]PRENTICE ELECTRICIAN 07/06/2019 Depression Medical New Patient with Allyson Grafton APPRENTICE ELECTRICIAN 07/06/2019 Diabetes Risk Test Score was one score Medical New Patient with Allyson Grafton APPRENTICE ELECTRICIAN 07/06/2019 Idiopathic insomnia Medical New Patient with Allyson Everett APPRENTICE ELECTRICIAN 07/06/2019 Obesity due to excess calories Medical N ew Patient with Allyson Grafton APPRENTICE ELECTRICIAN 07/06/2019 Z68.39 - Body mass index (BM I) 39.0-39.9 adult Medical New Patient with Allyson Grafton APPRENTICE ELECTRICIAN 07/06/2019 [facility] Work Phone: [phone]) 292-722806-08-2020 History general Narrative - Reported Includes: Medical History in patient's chart Description Last Updated Not currently nursing 11/06/2019 Not 11/06/2019 No reported medical history or no signif icant history 07/06/2019 [facility] Work Phone: Evaluation note Includes: Assessments for all patient encounters Findings Encounter Date Assessment of visit for: cristóbal montoya for human immunodeficiency virus Medical Established Patient with Miguel Holley [facility] 09/23/2020 Diabetes Risk Test Score was three score 09/23/2020 Medical Established Patient with Miguel Holley [facility] 09/23/2020 Morbid obesity Medical Established Patient with Miguel Holley [facility] 09/23/2020 Routine adult history and ph ysical (18-64 yrs) without abnormal findings Medical Established Patient with Miguel Holley [facility] 09/23/2020 Z68.41 - Body mass index [BMI]40.0-44.9, adult Medical Established Patient with Miguel Holley [facility] 09/23/2020 Cough Telemedicine Establi sted Patient with Miguel Holley [facility] 03/19/2020 Exposure to a viral disease Telemedicine Establisted Patient with Miguel Holley [facility] 03/19/2020 Obesity due to excess calories Telemedic ine Establisted Patient with Miguel Holley [facility] 03/19/2020 Z68.37 - Body mass index [BM I] 37.0-37.9, adult Telemedicine Establisted Patient with Miguel Holley [facility] 03/19/2020 Obesity due to excess calories Medical E stablished Patient with Miguel Holley [facility] 03/05/2020 Z68.37 - Body mass index [BM I] 37.0-37.9, adult Medical Established Patient with Miguel Holley [facility] 03/05/2020 Obesity due to excess calories Medical E stablished Patient with Poly Franco APPRENTICE ELECTRICIAN 12/05/2019 R21 - Rash and other nonspec ific skin eruption Medical Established Patient with Poly Franco APPRENTICE ELECTRICIAN 12/05/2019 Z68.35 - Body mass index (BM I) 35.0-35.9, adult Medical Established Patient with Poly Franco APPRENTICE ELECTRICIAN 12/05/2019 Obesity due to excess calories Medical E stablished Patient with Poly Franco [facility] 11/06/2019 Z68.36 - Body mass index (BM I) 36.0-36.9, adult Medical Established Patient with Poly Franco [facility] 11/06/2019 Obesity due to excess calories Medical E stablished Patient with Poly Wagonerle [facility] 10/12/2019 Z68.38 - Body mass index (BM I) 38.0-38.9, adult Medical Established Patient with Poly Franco [facility] 10/12/2019 L25.5 - Unspecified contact dermatitis due to plants, except food Medical Established Patient with Poly Wagonerle [facility] 09/14/2019 Obesity due to excess calories Medical E stablished Patient with Poly Wagonerle [facility] 09/14/2019 Z68.37 - Body mass index (BM I) 37.0-37.9, adult Medical Established Patient with Poly Franco [facility] 09/14/2019 L25.5 - Unspecified contact dermatitis due to plants, except food [facility] Obesity due to excess calories [facility]/11/2019 Z68.37 - Body mass index (BM I) 37.0-37.9, adult Telemedicine with Poly [facility] 09/11/2019 Dermatitis due to contact wi th poison spencer Telemedicine with Poly Franco [facility] 09/05/2019 Obesity due to excess calories [facility] 09/05/2019 Z68.37 - Body mass index (BM I) 37.0-37.9, adult [facility]/05/2019 Obesity due to excess calories Medical E stablished Patient with Miguel Holley [facility] 08/17/2019 Z68.37 - Body mass index (BM I) 37.0-37.9, adult Medical Established Patient with Miguelcristal Holley [facility] 08/17/2019 Generalized anxiety disorder BH Establis hed Patient with Anh VIDAL 07/06/2019 Anxiety disorder NOS Medical New Patient with Allyson Grafton APPRENTICE ELECTRICIAN 07/06/2019 Depression Medical New Patient with Allyson Grafton APPRENTICE ELECTRICIAN 07/06/2019 Diabetes Risk Test Score was one score M edical New Patient with Allyson Grafton APPRENTICE ELECTRICIAN 07/06/2019 Idiopathic insomnia Medical New Patient with Allyson Everett APPRENTICE ELECTRICIAN 07/06/2019 Obesity due to excess calories Medical N ew Patient with Allyson Everett APPRENTICE ELECTRICIAN 07/06/2019 Z68.39 - Body mass index (BM I) 39.0-39.9 adult Medical New Patient with Allyson Floyd APPRENTICE ELECTRICIAN 07/06/2019 [facility] Work Phone: Evaluation note* Diagnosis Nausea vomiting and diarrhea- Primary Nausea with vomiting Generalized abdominal pain Abdominal pain, generalized documented in this encounter [employer] Phone: evaluation note* Diagnosis Women's annual routine gynecological examination documented in this encounter [employer] Phone: evaluation note* Diagnosis Women's annual routine gynecological examination Intrauterine contraceptive device threads lost, initial encounter documented in this encounter [employer] SWY[facility]aluation note* Diagnosis Second trimester state, incidental documented [...] type No [facility] Discharge instructions* Attachments The following attachments cannot be sent through Care Everywhere. * Abdominal Pain (Iraqi) * Nausea and Vomiting (Iraqi) * Diarrhea ([place]) [facility] Instructions Instructions not supported for this document type No [facility]ructions [facility]: Patient problem outcome Narrative Includes: Evaluations & Outcomes for active Goals No Outcomes [facility] Work Phone: Reason for referral (narrative)No Reason for Referral [facility] Work Phone: Review of systems Narrative - Reported Review of Systems not supported for this document type No [facility] of [facility] Work Phone: Summary Purpose Family History No Family History Records Found Description Last Updated Maternal history of rheumatoid arthritis 07/06/2019 Maternal history of rheumatologic disord er Fibromyalgia 07/06/2019 Maternal history of systemic lupus eryth ematosus 07/06/2019 Paternal history of type 1 diabetes marino itus 07/06/2019 Advance Directives No Advanced Directives Records FoundDocuments on File Type Date Recorded 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 Advance Directives and Living Will Power of Client Services Account Manager Documents on File Type Date Recorded 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 ACP-Advance Directive ACP-Power of Client Services Account Manager Documents on File Type Date Recorded 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 Advance Directives and Living Will Power of Client Services Account Manager Date Activated Date Inactivated Comments 01/20/2023 7:21 [...] anxiety disorder BH Establis hed Patient with Ahn VIDAL 07/06/2019 Anxiety disorder NOS Medical New Patient with Allyson Floyd APPRENTICE ELECTRICIAN 07/06/2019 Depression Medical New Patient with Allyson Everett APPRENTICE ELECTRICIAN 07/06/2019 Diabetes Risk Test Score was one score Medical New Patient with Allyson Grafton APPRENTICE ELECTRICIAN 07/06/2019 Idiopathic insomnia Medical New Patient with Allyson Grafton APPRENTICE ELECTRICIAN 07/06/2019 Obesity due to excess calories Medical N ew Patient with Allyson Everett APPRENTICE ELECTRICIAN 07/06/2019 Z68.39 - Body mass index (BM I) 39.0-39.9 adult Medical New Patient with Allyson Grafton APPRENTICE ELECTRICIAN 07/06/2019 Findings Encounter Date Obesity due to excess calories Medical E stablished Patient with Poly Franco APPRENTICE ELECTRICIAN 10/12/2019 Z68.38 - Body mass index (BM I) 38.0-38.9, adult Medical Established Patient with Poly Wagonerle APPRENTICE ELECTRICIAN 10/12/2019 L25.5 - Unspecified contact dermatitis due to plants, except food Medical Established Patient with Poly Salvador [facility] 09/14/2019 Obesity due to excess calories Medical E stablished Patient with Poly Franco [facility] 09/14/2019 Z68.37 - Body mass index (BM I) 37.0-37.9, adult Medical Established Patient with Poly Franco [facility] 09/14/2019 L25.5 - Unspecified contact dermatitis due to plants, except food Telemedicine with Poly [facility] 09/11/2019 Obesity due to excess calories Telemedicine with Poly [facility] 09/11/2019 Z68.37 - Body mass index (BM I) 37.0-37.9, adult Telemedicine with Poly [facility] 09/11/2019 Dermatitis due to contact wi th poison spencer [facility] Obesity due to excess calories Telemedicine with Poly [facility] 09/05/2019 Z68.37 - Body mass index (BM I) 37.0-37.9, adult [facility]2019 Obesity due to excess calories Medical E stablished Patient with Miguel Holley [facility] 08/17/2019 Z68.37 - Body mass index (BM I) 37.0-37.9, adult Medical Established Patient with Miguel Holley [facility] 08/17/2019 Generalized anxiety disorder BH Establis hed Patient with Anh VIDAL 07/06/2019 Anxiety disorder NOS Medical New Patient with Allyson Floyd [facility] 07/06/2019 Depression Medical New Patient with Allyson Floyd [facility] 07/06/2019 Diabetes Risk Test Score was one score Medical New Patient with Allyson Everett [facility] 07/06/2019 Idiopathic insomnia Medical New Patient with Allyson Everett [facility] 07/06/2019 Obesity due to excess calories Medical N ew Patient with Allyson Grafton [facility] 07/06/2019 Z68.39 - Body mass index (BM I) 39.0-39.9 adult Medical New Patient with Allyson Grafton [facility] 07/06/2019 Findings Encounter Date Obesity due to excess calories Medical E stablished Patient with Miguel Holley [facility] 08/17/2019 Z68.37 - Body mass index (BM I) 37.0-37.9, adult Medical Established Patient with Miguel Holley [facility] 08/17/2019 Generalized anxiety disorder BH Establis hed Patient with Anh RODAS-S 07/06/2019 Anxiety disorder NOS Medical New Patient with Allyson Floyd APPRENTICE ELECTRICIAN 07/06/2019 Depression Medical New Patient with Allyson Everett APPRENTICE ELECTRICIAN 07/06/2019 Diabetes Risk Test Score was one score Medical New Patient with Allyson Everett APPRENTICE ELECTRICIAN 07/06/2019 Idiopathic insomnia Medical New Patient with Allyson Everett APPRENTICE ELECTRICIAN 07/06/2019 Obesity due to excess calories Medical N ew Patient with Allyson Everett APPRENTICE ELECTRICIAN 07/06/2019 Z68.39 - Body mass index (BM I) 39.0-39.9 adult Medical New Patient with Allyson Floyd APPRENTICE ELECTRICIAN 07/06/2019 Findings Encounter Date Dermatitis due to contact wi th poison spencer Telemedicine with Polykamryn Wagonerle [facility] 09/05/2019 Obesity due to excess calories Telemedicine with Poly Salvador [facility] 09/05/2019 Z68.37 - Body mass index (BM I) 37.0-37.9, adult Telemedicine with Polykamryn Wagonerle [facility] 09/05/2019 Obesity due to excess calories Medical E stablished Patient with Miguel Holley [facility] 08/17/2019 Z68.37 - Body mass index (BM I) 37.0-37.9, adult Medical Established Patient with Miguelcristal Holley [facility] 08/17/2019 Generalized anxiety disorder BH Establis hed Patient with Anh RODAS-S 07/06/2019 Anxiety disorder NOS Medical New Patient with Allyson Floyd APPRENTICE ELECTRICIAN 07/06/2019 Depression Medical New Patient with Allyson Floyd APPRENTICE ELECTRICIAN 07/06/2019 Diabetes Risk Test Score was one score Medical New Patient with Allyson Floyd APPRENTICE ELECTRICIAN 07/06/2019 Idiopathic insomnia Medical New Patient with Allyson Nye APPRENTICE ELECTRICIAN 07/06/2019 Obesity due to excess calories Medical N ew Patient with Allyson Nye APPRENTICE ELECTRICIAN 07/06/2019 Z68.39 - Body mass index (BM I) 39.0-39.9 adult Medical New Patient with Allyson Floyd APPRENTICE ELECTRICIAN 07/06/2019 Findings Encounter Date L25.5 - Unspecified contact dermatitis due to plants, except food Telemedicine with Poly Wagonerle [facility] 09/11/2019 Obesity due to excess calories Telemedicine with Poly Salvador [facility] 09/11/2019 Z68.37 - Body mass index (BM I) 37.0-37.9, adult Telemedicine with Poly Salvador [facility] 09/11/2019 Dermatitis due to contact wi th poison spencer Telemedicine with Poly Franco [facility] 09/05/2019 Obesity due to excess calories Telemedicine with Poly Franco [facility] 09/05/2019 Z68.37 - Body mass index (BM I) 37.0-37.9, adult Telemedicine with Poly Franco [facility] 09/05/2019 Obesity due to excess calories Medical E stablished Patient with Miguel Holley [facility] 08/17/2019 Z68.37 - Body mass index (BM I) 37.0-37.9, adult Medical Established Patient with Miguel Holley [facility] 08/17/2019 Generalized anxiety disorder BH Establis hed Patient with Anh RODAS-S 07/06/2019 Anxiety disorder NOS Medical New Patient with Allyson Floyd [facility] 07/06/2019 Depression Medical New Patient with Allyson Floyd [facility] 07/06/2019 Diabetes Risk Test Score was one score Medical New Patient with Allyson Floyd [facility] 07/06/2019 Idiopathic insomnia Medical New Patient with Allyson Floyd [facility] 07/06/2019 Obesity due to excess calories Medical N ew Patient with Allyson Floyd [facility] 07/06/2019 Z68.39 - Body mass index (BM I) 39.0-39.9 adult Medical New Patient with Allyson Floyd [facility] 07/06/2019 Findings Encounter Date L25.5 - Unspecified contact dermatitis due to plants, except food Medical Established Patient with Poly Franco [facility] 09/14/2019 Obesity due to excess calories Medical E stablished Patient with Poly Franco [facility] 09/14/2019 Z68.37 - Body mass index (BM I) 37.0-37.9, adult Medical Established Patient with Poly Franco [facility] 09/14/2019 L25.5 - Unspecified contact dermatitis due to plants, except food Telemedicine with Poly Wagonerle [facility] 09/11/2019 Obesity due to excess calories Telemedicine with Poly Wagonerle [facility] 09/11/2019 Z68.37 - Body mass index (BM I) 37.0-37.9, adult [facility] Dermatitis due to contact wi th poison spencer [facility]2019 Obesity due to excess calories Telemedicine with Poly Franco [facility] 09/05/2019 Z68.37 - Body mass index (BM I) 37.0-37.9, adult Telemedicine with Poly Franco APPRENTICE ELECTRICIAN 09/05/2019 Obesity due to excess calories Medical E stablished Patient with Miguel Holley APPRENTICE ELECTRICIAN 08/17/2019 Z68.37 - Body mass index (BM I) 37.0-37.9, adult Medical Established Patient with Miguel Holley APPRENTICE ELECTRICIAN 08/17/2019 Generalized anxiety disorder BH Establis hed Patient with Anh VIDAL 07/06/2019 Anxiety disorder NOS Medical New Patient with Allyson Floyd APPRENTICE ELECTRICIAN 07/06/2019 Depression Medical New Patient with Allyson Nye APPRENTICE ELECTRICIAN 07/06/2019 Diabetes Risk Test Score was one score Medical New Patient with Allyson Everett APPRENTICE ELECTRICIAN 07/06/2019 Idiopathic insomnia Medical New Patient with Allyson Floyd APPRENTICE ELECTRICIAN 07/06/2019 Obesity due to excess calories Medical N ew Patient with Allyson Grafton APPRENTICE ELECTRICIAN 07/06/2019 Z68.39 - Body mass index (BM I) 39.0-39.9 adult Medical New Patient with Allyson Floyd APPRENTICE ELECTRICIAN 07/06/2019 Findings Encounter Date Obesity due to excess calories Medical E stablished Patient with Poly Wagonerle APPRENTICE ELECTRICIAN 11/06/2019 Z68.36 - Body mass index (BM I) 36.0-36.9, adult Medical Established Patient with Poly Wagonerle APPRENTICE ELECTRICIAN 11/06/2019 Obesity due to excess calories Medical E stablished Patient with Poly Salvador APPRENTICE ELECTRICIAN 10/12/2019 Z68.38 - Body mass index (BM I) 38.0-38.9, adult Medical Established Patient with Poly Salvador APPRENTICE ELECTRICIAN 10/12/2019 L25.5 - Unspecified contact dermatitis due to plants, except food Medical Established Patient with Poly Salvador APPRENTICE ELECTRICIAN 09/14/2019 Obesity due to excess calories Medical E stablished Patient with Poly Salvador APPRENTICE ELECTRICIAN 09/14/2019 Z68.37 - Body mass index (BM I) 37.0-37.9, adult Medical Established Patient with Poly Salvador APPRENTICE ELECTRICIAN 09/14/2019 L25.5 - Unspecified contact dermatitis due to plants, except food Telemedicine with Poly Salvador APPRENTICE ELECTRICIAN 09/11/2019 Obesity due to excess calories Telemedicine with Poly Salvador [facility] 09/11/2019 Z68.37 - Body mass index (BM I) 37.0-37.9, adult Telemedicine with Poly Salvador APPRENTICE ELECTRICIAN 09/11/2019 Dermatitis due to contact wi th poison spencer Telemedicine with Poly Franco [facility] 09/05/2019 Obesity due to excess calories Telemedicine with Poly Franco [facility] 09/05/2019 Z68.37 - Body mass index (BM I) 37.0-37.9, adult Telemedicine with Poly Franco APPRENTICE ELECTRICIAN 09/05/2019 Obesity due to excess calories Medical E stablished Patient with Miguel Holley [facility] 08/17/2019 Z68.37 - Body mass index (BM I) 37.0-37.9, adult Medical Established Patient with Miguel Holley [facility] 08/17/2019 Generalized anxiety disorder BH Establis hed Patient with Anh VIDAL 07/06/2019 Anxiety disorder NOS Medical New Patient with Allyson Floyd [facility] 07/06/2019 Depression Medical New Patient with Allyson Floyd [facility] 07/06/2019 Diabetes Risk Test Score was one score Medical New Patient with Allyson Floyd [facility] 07/06/2019 Idiopathic insomnia Medical New Patient with Allyson Floyd APPRENTICE ELECTRICIAN 07/06/2019 Obesity due to excess calories Medical N ew Patient with Allyson Floyd [facility] 07/06/2019 Z68.39 - Body mass index (BM I) 39.0-39.9 adult Medical New Patient with Allyson Floyd [facility] 07/06/2019 Findings Encounter Date Obesity due to excess calories Medical E stablished Patient with Poly Franco [facility] 12/05/2019 R21 - [facility] Medical Established Patient with Poly Wagonerle [facility] 12/05/2019 Z68.35 - Body mass index (BM I) 35.0-35.9, adult Medical Established Patient with Poly Wagonerle APPRENTICE ELECTRICIAN 12/05/2019 Obesity due to excess calories Medical E stablished Patient with Poly Wagonerle [facility] 11/06/2019 Z68.36 - Body mass index (BM I) 36.0-36.9, adult Medical Established Patient with Poly Wagonerle APPRENTICE ELECTRICIAN 11/06/2019 Obesity due to excess calories Medical E stablished Patient with Poly Salvador [facility] 10/12/2019 Z68.38 - Body mass index (BM I) 38.0-38.9, adult Medical Established Patient with Poly Wagonerle [facility] 10/12/2019 L25.5 - Unspecified contact dermatitis due to plants, except food Medical Established Patient with Poly Franco APPRENTICE ELECTRICIAN 09/14/2019 Obesity due to excess calories Medical E stablished Patient with Poly Franco [facility] 09/14/2019 Z68.37 - Body mass index (BM I) 37.0-37.9, adult Medical Established Patient with Poly Franco [facility] 09/14/2019 L25.5 - Unspecified contact dermatitis due to plants, except food Telemedicine with Poly Franco [facility] 09/11/2019 Obesity due to excess calories Telemedicine with Poly Franco [facility] 09/11/2019 Z68.37 - Body mass index (BM I) 37.0-37.9, adult Telemedicine with Poly Franco [facility] 09/11/2019 Dermatitis due to contact wi th poison spencer Telemedicine with Poly Franco [facility] 09/05/2019 Obesity due to excess calories [facility]05[facility]2019 Z68.37 - Body mass index (BM I) 37.0-37.9, adult Telemedicine with Poly Franco [facility] 09/05/2019 Obesity due to excess calories Medical E stablished Patient with Miguel Holley [facility] 08/17/2019 Z68.37 - Body mass index (BM I) 37.0-37.9, adult Medical Established Patient with Miguel Holley [facility] 08/17/2019 Generalized anxiety disorder BH Establis hed Patient with Anh VIDAL 07/06/2019 Anxiety disorder NOS Medical New Patient with Allyson Everett APPRENTICE ELECTRICIAN 07/06/2019 Depression Medical New Patient with Allyson Grafton APPRENTICE ELECTRICIAN 07/06/2019 Diabetes Risk Test Score was one score Medical New Patient with Allyson Everett APPRENTICE ELECTRICIAN 07/06/2019 Idiopathic insomnia Medical New Patient with Allyson Grafton APPRENTICE ELECTRICIAN 07/06/2019 Obesity due to excess calories Medical N ew Patient with Allyson Grafton APPRENTICE ELECTRICIAN 07/06/2019 Z68.39 - Body mass index (BM I) 39.0-39.9 adult Medical New Patient with Allyson Grafton APPRENTICE ELECTRICIAN 07/06/2019 Findings Encounter Date Obesity due to excess calories Medical E stablished Patient with Miguel Holley [facility] 03/05/2020 Z68.37 - Body mass index [BM I] 37.0-37.9, adult Medical Established Patient with Miguel Leydi [facility] 03/05/2020 Obesity due to excess calories Medical E stablished Patient with Poly Franco [facility] 12/05/2019 R21 - Rash and other nonspec [facility] skin eruption Medical Established Patient with Polykamryn Wagonerle [facility] 12/05/2019 Z68.35 - Body mass index (BM I) 35.0-35.9, adult Medical Established Patient with Poly Wagonerle APPRENTICE ELECTRICIAN 12/05/2019 Obesity due to excess calories Medical E stablished Patient with Poly Wagonerle [facility] 11/06/2019 Z68.36 - Body mass index (BM I) 36.0-36.9, adult Medical Established Patient with Poly Wagonerle [facility] 11/06/2019 Obesity due to excess calories Medical E stablished Patient with Poly Wagonerle [facility] 10/12/2019 Z68.38 - Body mass index (BM I) 38.0-38.9, adult Medical [facility]12/2019 L25.5 - Unspecified contact dermatitis due to plants, except food Medical Established Patient with Poly Franco [facility] 09/14/2019 Obesity due to excess calories Medical E [facility]ablished [facility] 09/14/2019 Z68.37 - Body mass index (BM I) 37.0-37.9, adult Medical Establ[facility] 09/14/2019 L25.5 - Unspecified contact dermatitis due to plants, except food Telemedicine with Poly Franco [facility] 09/11/2019 Obesity due to excess calories [facility] 09/11/2019 Z68.37 - Body mass index (BM I) 37.0-37.9, adult Telemedicine with Poly [facility] 09/11/2019 Dermatitis due to contact wi th poison spencer Telemedicine with Poly Franco [facility] 09/05/2019 Obesity due to excess calories Telemedicine with Poly Wagonerle [facility] 09/05/2019 Z68.37 - Body mass index (BM I) 37.0-37.9, adult [facility]/2019 Obesity due to excess calories Medical E stablished Patient with Miguel Holley [facility] 08/17/2019 Z68.37 - Body mass index (BM I) 37.0-37.9, adult Medical Established Patient with Miguel Anguloen [facility] 08/17/2019 Generalized anxiety disorder BH Establis hed Patient with Anh VIDAL 07/06/2019 Anxiety disorder NOS Medical New Patient with Allyson Floyd APPRENTICE ELECTRICIAN 07/06/2019 Depression Medical New Patient with Allyson Floyd APPRENTICE ELECTRICIAN 07/06/2019 Diabetes Risk Test Score was one score Medical New Patient with Allyson Floyd APPRENTICE ELECTRICIAN 07/06/2019 Idiopathic insomnia Medical New Patient with Allyson Floyd APPRENTICE ELECTRICIAN 07/06/2019 Obesity due to excess calories Medical N ew Patient with Allyson Floyd APPRENTICE ELECTRICIAN 07/06/2019 Z68.39 - Body mass index (BM I) 39.0-39.9 adult Medical New Patient with Allyson Floyd APPRENTICE ELECTRICIAN 07/06/2019 Findings Encounter Date Cough Telemedicine Establi sted Patient with Miguel Holley APPRENTICE ELECTRICIAN 03/19/2020 Exposure to a viral disease Telemedicine Establisted Patient with Miguel Holley APPRENTICE ELECTRICIAN 03/19/2020 Obesity due to excess calories Telemedic ine Establisted Patient with Miguel Holley APPRENTICE ELECTRICIAN 03/19/2020 Z68.37 - Body mass index [BM I] 37.0-37.9, adult Telemedicine Establisted Patient with Miguel Holley APPRENTICE ELECTRICIAN 03/19/2020 Obesity due to excess calories Medical E stablished Patient with Miguel Holley APPRENTICE ELECTRICIAN 03/05/2020 Z68.37 - Body mass index [BM I] 37.0-37.9, adult Medical Established Patient with Miguel Holley APPRENTICE ELECTRICIAN 03/05/2020 Obesity due to excess calories Medical E stablished Patient with Polykamryn Wagonerle APPRENTICE ELECTRICIAN 12/05/2019 R21 - Rash and other nonspec ific skin eruption Medical Established Patient with Poly Salvador APPRENTICE ELECTRICIAN 12/05/2019 Z68.35 - Body mass index (BM I) 35.0-35.9, adult Medical Established Patient with Poly Salvador APPRENTICE ELECTRICIAN 12/05/2019 Obesity due to excess calories Medical E stablished Patient with Poly Salvador APPRENTICE ELECTRICIAN 11/06/2019 Z68.36 - Body mass index (BM I) 36.0-36.9, adult Medical Established Patient with Poly Salvador APPRENTICE ELECTRICIAN 11/06/2019 Obesity due to excess calories Medical E stablished Patient with Poly Salvador APPRENTICE ELECTRICIAN 10/12/2019 Z68.38 - Body mass index (BM I) 38.0-38.9, adult Medical Established Patient with Poly Salvador APPRENTICE ELECTRICIAN 10/12/2019 L25.5 - Unspecified contact dermatitis due to plants, except food Medical Established Patient with Poly Franco [facility] 09/14/2019 Obesity due to excess calories Medical E stablished Patient with Poly Franco [facility] 09/14/2019 Z68.37 - Body mass index (BM I) 37.0-37.9, adult Medical Established Patient with Poly Franco [facility] 09/14/2019 L25.5 - Unspecified contact dermatitis due to plants, except food Telemedicine with Poly Franco [facility] 09/11/2019 Obesity due to excess calories Telemedicine with Poly Franco [facility] 09/11/2019 Z68.37 - Body mass index (BM I) 37.0-37.9, adult Telemedicine with Poly Franco [facility] 09/11/2019 Dermatitis due to contact wi th poison spencer Telemedicine with Poly Franco [facility] 09/05/2019 Obesity due to excess calories Telemedicine with Poly Franco [facility] 09/05/2019 Z68.37 - Body mass index (BM I) 37.0-37.9, adult Telemedicine with Poly Franco [facility] 09/05/2019 Obesity due to excess calories Medical E stablished Patient with Miguel Holley [facility] 08/17/2019 Z68.37 - Body mass index (BM I) 37.0-37.9, adult Medical Established Patient with Miguel Holley [facility] 08/17/2019 Generalized anxiety disorder BH Establis hed Patient with Anh VIDAL 07/06/2019 Anxiety disorder NOS Medical New Patient with Allyson Floyd [facility] 07/06/2019 Depression Medical New Patient with Allyson Floyd APPRENTICE ELECTRICIAN 07/06/2019 Diabetes Risk Test Score was one score Medical New Patient with Allyson Grafton [facility] 07/06/2019 Idiopathic insomnia Medical New Patient with Allyson Grafton APPRENTICE ELECTRICIAN 07/06/2019 Obesity due to excess calories Medical N ew Patient with Allyson Everett APPRENTICE ELECTRICIAN 07/06/2019 Z68.39 - Body mass index (BM I) 39.0-39.9 adult Medical New Patient with Allyson Floyd [facility] 07/06/2019 Diagnosis COVID-19 Fatty liver Other [...] Everywhere. * Coronavirus Disease (COVID-19): General Info (Iraqi) documented in this encounter Additional Source Comments INFORMATION SOURCE (unrecogn ized section and content) DATE CREATED AUTHOR 11/24/2017 [facility] DATE CREATED AUTHOR AUTHOR'S ORGANIZ ATION 08/26/[address] [facility] DATE CREATED AUTHOR AUTHOR'S ORGANIZ ATION 09/24/2020 [facility] DATE CREATED AUTHOR AUTHOR'S ORGANIZ ATION 10/30/2024 [facility] DATE CREATED AUTHOR AUTHOR'S ORGANIZ ATION 02/14/2025 [facility] EPIC Evaluations & Outcomes (unre cognized [...] US TRANSVAGINAL, NON OB Dana Akins MD [address] [place] [id number] [facility] [address] [place] [address] Reason Comments Emesis multiple episodes si nce [...] dose 0126 (Given - Provid er: Lina Allne) Care Teams (unrecognized sec tion and content) Project Controls Scheduler Relationship Specialty Start Date End Date Miguel Holley APRN [facility] PCP - General Family Medicine 04/08/20 Project Controls Scheduler Relationship Specialty Start Date End Date Miguel Holley APRN [facility] PCP - General Family Medicine 04/08/20 Project Controls Scheduler Relationship Specialty Start Date End Date Miguel Holley APRN [facility] PCP - General Family Medicine 04/08/20 Project Controls Scheduler Relationship Specialty Start Date End Date Miguel Holley APRN APPRENTICE ELECTRICIAN PCP - General Family Medicine 04/08/20 FOR [...] BE BASED ON THE PRIMARY CLINICAL RECORDS. [facility]. provides no warranty or guarantee of the accuracy or completeness of information in this document.
[2025-02-21 07:09] LABS: Glucose Urine UA NEGATIVE (NEGATIVE)
[2025-02-21 07:14] LABS: Hematocrit 34.2 % (36.0-48.0); Hemoglobin 11.7 g/dL (12.0-16.0); Immature Granulocytes Abs Auto 0.04 10^3/uL (0.00-0.03); Immature Granulocytes Pct Auto 0.4 % (0.0-0.5); Lymphocytes Absolute Auto 2.0 10^3/uL (1.2-3.8); Mean Corpuscular HGB Conc 34.2 g/dL (29.9-35.2); Mean Corpuscular Hemoglobin 27.5 pg (26.7-34.0); Mean Corpuscular Volume 80.3 fL (81.0-99.0); Platelet Count 130 10^3/uL (150-450); Red Blood Count 4.26 10^6/uL (4.20-5.40); White Blood Count 9.2 10^3/uL (4.0-11.0)
[2025-02-21 07:18] LABS: Cannabinoid Screen Urine NEGATIVE (NEGATIVE); Methamphetamines Screen Urine NEGATIVE (NEGATIVE); Tricyclic Antidepressant Urine NEGATIVE (NEGATIVE)
[2025-02-21 07:32] LABS: Cast Seen? NONE SEEN #/LPF (NONE SEEN); Crystals Seen? None Seen #/HPF (None Seen)
[2025-02-21 07:33] LABS: Urine Culture Indicated YES-LC
[2025-02-21] MEDS: FAMOTIDINE/PF 20 MG/2 ML VIAL IV (08:18)
[2025-02-21] MEDS: CITRIC ACID/SODIUM CITRATE 30 ML SOLUTION ORACIT SHOHL'S SOLN PO (08:18)
[2025-02-21] MEDS: CEFAZOLIN SODIUM/DEXTROSE,ISO 2 GM/50 ML PIGGYBACK IV ×2 (08:23→14:43)
--- NOTE | 2025-02-21 09:31 | P.ON_ITS ---
Brief Operative Note Date of procedure: 02/21/25 Pre-op diagnosis general: iup at term gestation, macrosomia, gdm Post-op diagnosis: same as pre-op Procedure: NAME OF PROCEDURE: [ section ] PROCEDURE: Patient was taken back to the Operating Room where she was given a spinal anesthesia with Duramorph without difficulty. She was prepped and draped in the normal sterile fashion. A Pfannenstiel skin incision was then made 2 cm above the symphysis pubis and carried down to underlying rectus fascia using a Bovie. The fascia was incised in the midline and extended laterally using Avitia scissors. Two Odilon clamps were placed on the superior aspect of the fascia and dissected off the underlying rectus muscles. The same was performed on the inferior aspect as well. The muscles were then in the midline. Peritoneum was identified and entered bluntly. The peritoneum was then extended superiorly and inferiorly with good visualization of the bladder. The bladder blade was inserted. A low transverse incision was made on the patient's uterus and extended laterally digitally. The was then delivered atraumatically after the bladder blade was removed in the cephalic position. The cord was clamped and cut. Cord blood was obtained. The infant was handed off to awaiting team. The patient's placenta was spontaneously delivered. The uterus was then exteriorized. The uterus was cleared of all clots and debris. The bladder blade was reinserted. The patient's uterine incision was closed using #0 Vicryl in a running lock fashion. Excellent hemostasis was assured. The uterus was then returned to the patient's abdomen. The patient's abdomen was copiously irrigated using warm saline. Peritoneal gutters were cleared of all clots and debris. Again excellent hemostasis was assured. The patient's peritoneum was closed using 3-0 Vicryl in a running fashion. The patient's fascia was closed using #0 Vicryl in a running fashion. The patient's skin was closed using 4-0 Vicryl subcuticularly. The patient tolerated the procedure well. Sponge, lap, and needle counts were correct x2. The patient was taken to the Recovery Room in stable condition. Anesthesia: spinal Surgeon: Aditya Cervantes Combat Systems Engineer: Poly Lee Estimated blood loss (mL): 575 Pathology: none sent Condition: stable Disposition: PACU Urinary Catheter Management Urinary Catheter Management Urethral: Cath placed during this visit: no
--- NOTE | 2025-02-21 09:33 | P.OBPRC_ITS ---
Procedure Pre-op/Post-op diagnoses: Pre-Op/Post-Op Diagnoses Operation Date: 02/21/25 08:15 <No data on this case meets the specified criteria> Procedure: Procedures Operation Date: 02/21/25 08:15 Actual Procedure Side Surgeon p Repeat Not Applicable Aditya Cervantes DO Culture Room Worker: Poly Lee Disposition: PACU Anesthesia type: Spinal
[2025-02-21] MEDS: KETOROLAC TROMETHAMINE 30 MG/ML VIAL IVP (23:09)
[2025-02-21] MEDS: SIMETHICONE 80 MG TAB.CHEW PO (23:10)
[2025-02-21] MEDS: ENOXAPARIN SODIUM 40 MG/0.4 ML SYRINGE SUBQ (23:10)
[2025-02-22 06:22] LABS: Hematocrit 30.5 % (36.0-48.0); Hemoglobin 10.2 g/dL (12.0-16.0); Immature Granulocytes Abs Auto 0.06 10^3/uL (0.00-0.03); Immature Granulocytes Pct Auto 0.4 % (0.0-0.5); Lymphocytes Absolute Auto 2.8 10^3/uL (1.2-3.8); Mean Corpuscular HGB Conc 33.4 g/dL (29.9-35.2); Mean Corpuscular Hemoglobin 27.1 pg (26.7-34.0); Mean Corpuscular Volume 81.1 fL (81.0-99.0); Platelet Count 119 10^3/uL (150-450); Red Blood Count 3.76 10^6/uL (4.20-5.40); White Blood Count 13.7 10^3/uL (4.0-11.0)
--- NOTE | 2025-02-22 07:58 | PM.OBPN ---
OB - PN: Subj Subjective Patient comments: no complaints and pain well controlled status: doing well Exam Constitutional Vital Signs, click to edit/add: Last Vital Signs Temp 98 F 02/21/25 23:16 Pulse 68 02/21/25 10:20 Resp 16 02/21/25 23:15 BP 121/67 02/21/25 23:16 Pulse Ox 93 L 02/21/25 10:05 O2 Del Method Room Air 02/21/25 23:15 Documenting provider has reviewed patient's vital signs: yes Common normals: no apparent distress Respiratory Common normals: normal respiratory effort and clear to auscultation bilaterally Cardio Common normals: regular rate and regular rhythm GI Common normals: Normal to inspection, nondistended, normoactive bowel sounds present Extremity Common normals: no clubbing, cyanosis or edema and no calf tenderness Results Labs Labs: Short CBC 02/22/25 Range/Units 06:14 WBC 13.7 H (4.0-11.0) 10^3/uL Hgb 10.2 L (12.0-16.0) g/dL Hct 30.5 L (36.0-48.0) % Plt Count 119 L (150-450) 10^3/uL Urinary Catheter Management Urinary Catheter Management Urethral: Cath placed during this visit: no OB - PN: A/P Plan - day: 1 Plan: routine postop care Time Spent with Patient Time: Total time spent is greater than 50% in coordination of care (as documented) at patient's floor/unit and/or counseling patient: Total time spent with greater than 50% in coordination of care (as documented) at patient's floor/unit and/or counseling patient: less than 15 minutes
[2025-02-22 08:20] VITALS: BP 110/58; PULSE 83; TEMP 36.6
[2025-02-22] MEDS: DOCUSATE SODIUM 100 MG CAPSULE PO ×2 (08:27→22:17)
[2025-02-22] MEDS: KETOROLAC TROMETHAMINE 30 MG/ML VIAL IVP ×3 (10:11→22:17)
[2025-02-22] MEDS: OXYCODONE HCL/ACETAMINOPHEN 5MG/325MG 1 TAB PO (14:50)
[2025-02-22 16:25] VITALS: BP 130/62; PULSE 83; TEMP 36.7
[2025-02-22 16:26] VITALS: BP 130/62; PULSE 83
[2025-02-22 22:16] VITALS: BP 133/86; PULSE 82
[2025-02-22] MEDS: ENOXAPARIN SODIUM 40 MG/0.4 ML SYRINGE SUBQ (22:17)
[2025-02-22 22:59] VITALS: BP 133/86; PULSE 82; TEMP 36.9
[2025-02-23] MEDS: KETOROLAC TROMETHAMINE 30 MG/ML VIAL IVP (05:48)
[2025-02-23 08:36] VITALS: BP 124/82; PULSE 73
[2025-02-23] MEDS: DOCUSATE SODIUM 100 MG CAPSULE PO (08:47)
[2025-02-23] MEDS: OXYCODONE HCL/ACETAMINOPHEN 5MG/325MG 2 TAB PO (08:47)
--- NOTE | 2025-02-23 12:27 | PM.OBDS ---
DS: Providers Provider Date of admission: 02/21/25 06:29 Primary care physician: Non-Staff PhysicianMD Admitting clinician: Aditya Cervantes Attending physician on admission: Aditya Cervantes Consults: 02/21/25 Consult to Anesthesiology Routine Consulting Provider: Dylan Urbano Reason for consultation: Attending physician on discharge: MAMI KNOTT Discharging clinician: MAMI KNOTT Anticipated date of discharge: 02/23/25 DS: Diagnosis Discharge Diagnosis (1) Status post repeat low transverse section: Assessment and plan: follow up 02/28/25 as scheduled (2) Gestational diabetes: Assessment and plan: diet controlled Qualifiers: Gestational diabetes mellitus control: diet-controlled Trimester: third trimester Qualified Code(s): O24.410 - Gestational diabetes mellitus in , diet controlled OB - DS: Summary Hospital Course Hospital Course: 29 yo now P2 at 38wk 6d presented for a repeat section. was complicated by gestational diabetes controlled by diet. She also had a previous section. She underwent a RLTCS and delivered an 8 lb 2 oz female with Apgars of 9 and 9 at 1 and 5 minutes. She was doing well at discharge. There was slight redness at her incision and she was sent home on an antibiotic. Peripartum Data - Procedures: Procedures Operation Date: 02/21/25 08:15 Actual Procedure Side Surgeon p Repeat Not Applicable Aditya Cervantes DO Peripartum Data - Vaginal Delivery Procedures: Procedures Operation Date: 02/21/25 08:15 Actual Procedure Side Surgeon p Repeat Not Applicable Aditya Cervantes DO Complications complications: none Delivery method: section Gender: female Discharge plan: home Status at Discharge Functional status at discharge: independent ambulation Overall status at discharge: patient is progressing back to baseline Time Spent with Patient Time attestation: Total time spent providing and/or coordinating discharge services: Time spent: less than 30 minutes Exam Constitutional Vital Signs, click to edit/add: Last Vital Signs Temp 98.4 F 02/22/25 22:59 Pulse 73 02/23/25 08:36 Resp 16 02/23/25 08:26 BP 124/82 02/23/25 08:36 Pulse Ox 93 L 02/21/25 10:05 O2 Del Method Room Air 02/22/25 22:59 Documenting provider has reviewed patient's vital signs: yes Common normals: no apparent distress and oriented x3 General appearance: cooperative and comfortable Nutritional appearance: obese HENMT Common normals: normocephalic Eye Common normals: EOMs intact bilaterally Neck & C-Spine Common normals: full ROM and supple Respiratory Common normals: normal respiratory effort and no retractions Cardio Common normals: regular rate and regular rhythm GI Common normals: Normal to inspection, nondistended, normoactive bowel sounds present and soft to palpation Other: incision: clean / dry / intact with some mild redness around incision Common normals: no CVA tenderness Uterus palpation: other (fundus firm and non-tender below the umbilicus) Back & Pelvis Common normals: no CVA tenderness Extremity Common normals: normal to inspection and no pedal edema Neuro Common normals: oriented x3 Sensorium/orientation: awake and alert Psych Common normals: mental status grossly normal, thought process normal, cooperative and affect normal Attitude: calm DS: Data Data Completed and Pending Labs on day of discharge: Preliminary micro results at discharge 02/21/25 06:45 Urine Culture - Preliminary Urine,Clean Catch Discharge Plan Discharge Disposition: Home, Self-Care Condition: Good Discharge Medications: New ibuprofen 800 mg tablet 800 mg PO Q8H PRN (Reason: pain) 14 Days Qty: 40 0RF oxycodone-acetaminophen [Percocet] 5-325 mg tablet 1 tab PO Q6H PRN (Reason: pain) 5 Days Qty: 20 0RF Rx Instructions: g89.18 docusate sodium [Colace] 100 mg capsule 100 mg PO BID Qty: 60 0RF levofloxacin 750 mg tablet 750 mg PO DAILY 7 Days Qty: 7 0RF oxycodone-acetaminophen 5-325 mg Tablet 1 tab PO Q4H PRN (Reason: Pain Scale 4-6) Qty: 30 0RF Discontinued cefuroxime axetil 500 mg tablet 500 mg PO BID 7 Days Qty: 14 0RF Activity: increase activity as tolerated Diet: advance to your usual diet Print Language: Mongolian Forms: Delivery - Discharge, Portal Instructions Follow Up Appointments: as scheduled next 02/28/2025 Discharge location: home
[2025-02-23] MEDS: IBUPROFEN 400 MG TABLET 800 MG PO (13:34)
== END 2025-02-23 14:00 | disposition home or self-care (01) | DRG 540 ==
PROVIDERS: Admitting Provider Obstetrics & Gynecology; Visit Provider Obstetrics & Gynecology
PROC: 10D00Z1 Extraction of Products of Conception, Low, Open Approach (ICD-10-PCS; CPT 59514; principal; 2025-02-21 08:15)
DX: O24.420 Gestational diabetes mellitus in childbirth, diet controlled (principal); O34.211 Maternal care for low transverse scar from previous cesarean delivery; O36.63X0 Maternal care for excessive fetal growth, third trimester, not applicable or unspecified; Z37.0 Single live birth; Z3A.38 38 weeks gestation of pregnancy
CPT/HCPCS: 36415; 64488; 80307; 81001; 82947; 85025; 86850; 86900; 86901; 87086; 94667; 94668; J0131; J0665; J0690; J1100; J1200; J1650; J1885; J2274; J2371; J2405; J2590; J3490